=== PATIENT | female | born 1975 | race Caucasian/White ===

== ENCOUNTER 2017-07-09 18:43 | Emergency (ER) | payer BC ==
[~2017-07-09] VITALS: Ht 170.2 cm; Wt 71.2 kg
[~2017-07-09 18:43] MED LIST: AMBIEN10 MG PO; BENTYL10 MG PO; BIAXIN500 MG PO; CELEXA40 MG PO; CHLORDIAZEPOXI1 EACH PO; CYCLOBENZAPRINE5 MG PO; DIAZEPAM10 MG PO; FENTANYL1 EAC1 TOP; FOLIC ACID1 MG PO; GABAPENTIN300 MG PO; KEFLEX500 MG PO; LEVAQUIN500 MG PO; LIBRAX CAPSULE1 EACH PO; LOMOTIL TABLET1 EACH PO; METRONIDAZOLE500 MG PO; MIRTAZAPINE15 MG PO; MOTRIN200 MG PO; PANTOPRAZOLE SO40 MG PO; PENTASA500 MG PO; PHENERGAN SUPP25 MG RC; PROAIR HFA INH8.5 GM INH; PROMETHAZINE HC50 MG PO; PROPRANOLOL HCL80 M1 PO; RESTORIL30 MG PO; TAMIFLU75 MG PO; TEMAZEPAM15 MG PO; TIZANIDINE HCL4 M1 PO; TYLENOL WITH C1 EAC1 PO; TYLENOL WITH C1 EACH PO; XIFAXAN550 MG PO; ZOFRAN ODT4 MG PO; [UNRECOGNIZED DRUG - OTHER] PO
[2017-07-09] MEDS ORDERED: LORAZEPAM 1 MG TAB PO ONE (19:45)
[2017-07-09] MEDS ORDERED: DILAUDID2 MG SC (19:47)
[2017-07-09 20:51] VITALS: BP 91/56
== END 2017-07-09 20:45 | disposition home or self-care (01) ==
LOC: FSED 18:43
DX: S52.124A Nondisplaced fracture of head of right radius, initial encounter for closed fracture (principal); W18.39XA Other fall on same level, initial encounter; C92.10 Chronic myeloid leukemia, BCR/ABL-positive, not having achieved remission
CPT/HCPCS: 99283

== ENCOUNTER 2017-07-11 23:20 | Emergency (ER) | payer BC ==
[~2017-07-11 23:20] MED LIST changes: +DILAUDID2 MG SC
--- OUTSIDE RECORDS SUMMARY | 2017-07-11 23:26 | XMS REPORT | Clinical Summary ---
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 Disp. Refills Start End Date Status Date diazepam (VALIUM) 10 MG Take 10 mg by mouth 4 Active tablet (four) times daily. scopolamine Place 1 patch onto the Active (TRANSDERM-SCOP) 1.5 mg skin every third day. patchIndications: Motion Sickness, Prevention of Motion Sickness citalopram (CELEXA) 40 MG Take 40 mg by mouth Active tablet daily. promethazine (PHENERGAN) Take 25 mg by mouth every Active 25 MG tablet 6 (six) hours as needed for Nausea. zaleplon (SONATA) 10 MG Take 20 mg by mouth Active capsule nightly. zolpidem (AMBIEN CR) 12.5 Take 12.5 mg by mouth Active MG CR tablet every night as needed for Insomnia. fentaNYL (DURAGESIC) 25 Place 1 patch onto the Active mcg/hr patch skin every third day. docusate sodium (COLACE) Take 100 mg by mouth 2 Active 100 MG capsule (two) times daily. mesalamine (PENTASA) 250 Take 250 mg by mouth 4 Active mg CR capsule (four) times daily. TiZANidine (ZANAFLEX) 4 Take 4 mg by mouth 3 Active MG capsule (three) times daily. folic acid (FOLVITE) 1 MG Take 1 mg by mouth daily. Active tablet ondansetron (ZOFRAN-ODT) Take 4 mg by mouth every Active 4 MG disintegrating 8 (eight) hours as needed tablet for Nausea. chlordiazePOXIDE Take 5 mg by mouth 3 Active (LIBRIUM) 5 MG capsule (three) times daily . buprenorphine HCl Place 150 mcg inside Active (BELBUCA) 150 mcg Film cheek 2 (two) times daily. dicyclomine (BENTYL) 10 Take 10 mg by mouth 3 Active MG capsule (three) times daily as needed. rifaximin 550 mg Tab Take 1 tablet (550 mg 180 tablet 3 04/20/20 Active total) by mouth 2 (two) 16 times daily. dicyclomine (BENTYL) 10 Take 1 capsule (10 mg 270 capsule 3 04/19/20 04/19/20 MG capsule total) by mouth 3 (three) 16 17 times daily. Active Problems Problem Noted Date Enteritis 04/14/2016 Shortness of breath 11/10/2014 Nausea & vomiting 10/21/2014 Acute abdominal pain 10/18/2014 Elevated LFTs 09/30/2014 Social History Tobacco Use Types Packs/Day Years Used Date Former Smoker 1 1 Quit: 09/30/2014 Smokeless Tobacco: Former Quit: User 09/30/2014 Comments: patient states quit smoking on admission to the hospital Alcohol Use Drinks/Week oz/Week Comments No Sex Assigned at Date Recorded Not on file Last Filed Vital Signs Not on file Plan of Treatment Not on file Results Not on fileafter 07/10/2016
--- OUTSIDE RECORDS SUMMARY | 2017-07-11 23:26 | XMS REPORT | Continuity of Care Document ---
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 Yes 09/03/16 6:07am If yes, is advance directive on file with [facility]? No 03/09/16 1:40pm If not on file with [facility] will patient provide a copy? Yes 09/03/16 6:07am Problems Medical Problem Onset Date Status Abdominal pain Unknown Failure of outpatient treatment Unknown UTI (urinary tract infection) Unknown Vomiting Unknown Medications Current Home Medications Medication Dose Units Route Directions Days Qty Instructions Start Date Acetaminophen With Codeine (Tylenol With Codeine #4 Tablet) 1 Each Tablet 1 Tab Oral Every 6 Hours Citalopram Hydrobromide (Celexa) 40 Mg Tablet 40 Mg Oral Daily Diazepam 10 Mg Tablet 10 Mg Oral Every 8 Hours Dicyclomine Hcl (Bentyl) 10 Mg Capsule 10 Mg Oral Twice A Day Gabapentin 300 Mg Capsule 300 Mg Oral Three Times A Day 60 Cap Hydromorphone Hcl (Dilaudid) 2 Mg Tab 100 Mg Subcutaneously IV infusion pump, cont Promethazine Hcl 50 Mg Tablet 50 Mg Oral Every 6 Hours Temazepam 15 Mg Capsule 20 Mg Oral Bedtime Tizanidine Hcl 4 Mg Capsule 4 Mg Oral Three Times A Day Zolpidem Tartrate (Ambien) 10 Mg Tablet 12.5 Mg Oral Bedtime Past Home Medications Medication Directions Ordered Status Acetaminophen With Codeine (Tylenol With Codeine #3 Tablet) 1 Each Tablet, 300 Mg Oral Every 6 Hours as needed for Pain 03/15/16 Discontinued Acetaminophen With Codeine (Tylenol With Codeine #3 Tablet) 1 Each Tablet, 300 Mg Oral Every 4 Hours for Pain Discontinued Albuterol Sulfate (Proair Hfa Inhaler*) 8.5 Gm Inh, 2 Inh Inhalation Daily Discontinued Cephalexin Monohydrate (Keflex) 500 Mg Capsule, 500 Mg Oral Four Times Daily Discontinued Chlordiazepoxide/Clidinium Br (Chlordiazepoxide-Clidinium Cap) 1 Each Capsule, 1 Each Oral Daily Discontinued Chlordiazepoxide/Clidinium Br (Librax Capsule) 1 Each Capsule, 20 Mg Oral Bedtime Discontinued Clarithromycin (Biaxin) 500 Mg Tablet, 500 Mg Oral Twice A Day Discontinued Cyclobenzaprine Hcl (Flexeril) 5 Mg Tablet, 10 Mg Oral Discontinued Diphenoxylate Hcl/Atropine (Lomotil Tablet) 1 Each Tablet, 1 Tab Oral Daily Discontinued Fentanyl 1 Each Patch.td72, 50 Mcg Topically Q72 Hrs Discontinued Folic Acid 1 Mg Tablet, 3 Mg Oral Daily Discontinued Ibuprofen (Motrin) 200 Mg Tab, 400 Mg Oral Every 6 Hours Discontinued Levofloxacin (Levaquin) 500 Mg Tablet, 500 Mg Oral Daily 03/15/16 Discontinued Mesalamine (Pentasa) 500 Mg Capcr, 1000 Mg Oral Three Times A Day Discontinued Metronidazole 500 Mg Tablet, 500 Mg Oral Three Times A Day Discontinued Mirtazapine 15 Mg Tab, 15 Mg Oral Bedtime Discontinued Ondansetron (Zofran Odt) 4 Mg Tab.rapdis, 4 Mg Oral Q4-6H Prn 03/15/16 Discontinued Ondansetron (Zofran Odt) 4 Mg Tab.rapdis, 8 Mg Oral Every 6 Hours as needed for Nausea And Vomiting Discontinued Oseltamivir Phosphate (Tamiflu) 75 Mg Cap, 75 Mg Oral Twice A Day Discontinued Pantoprazole Sodium (Protonix) 40 Mg Tablet.dr, 40 Mg Oral Daily Discontinued Pro Plus , 1 Tab Oral Daily Discontinued Promethazine Hcl (Phenergan Supp*) 25 Mg Supp, 25 Mg Rectal Every 8 Hours 11/ 01/16 Discontinued Propranolol Hcl 80 Mg Tablet, 120 Mg Oral Daily Discontinued Rifaximin (Xifaxan) 550 Mg Tablet, 1 Tab Oral Twice A Day Discontinued Temazepam (Restoril) 30 Mg Capsule, 40 Mg Oral Bedtime Discontinued Social History Social History Problem Response Recorded Date/Time Onset Date Status Hx Psychiatric Problems Yes 03/19/2016 1:35am Not Applicable Not Applicable Hx Eating Disorder No 03/19/2016 1:35am Not Applicable Not Applicable Hx Substance Use Disorder No 03/19/2016 1:35am Not Applicable Not Applicable Hx Depression Yes 03/19/2016 1:35am Not Applicable Not Applicable Hx Alcohol Use No 03/19/2016 1:35am Not Applicable Not Applicable Hx Substance Use Treatment No 03/19/2016 1:35am Not Applicable Not Applicable Hx Physical Abuse No 03/19/2016 1:35am Not Applicable Not Applicable Smoking Status Start Date Stop Date Never Smoker Hospital Discharge Instructions No hospital discharge instruction information available. Plan of Care Discharge Date 07/09/17 8:45pm Disposition HOME, SELF-CARE Condition at Discharge Improved Instructions/Education Provided Fractures - Forearm Prescriptions See Medication Section Referrals Stewart Caceres DO Additional Instructions/Education Call your doctor to follow up to re- evaluate and for further management. Functional Status No functional status information available. Allergies, Adverse Reactions, Alerts Allergen Type Severity Reaction Status Last Updated iodine Allergy Intermediate hives Active 09/23/15 clavulanic acid Allergy Intermediate hives Active 09/23/15 Amoxicillin Allergy Intermediate hives Active 09/23/15 Immunizations No immunization information available. Vital Signs Acute Vital Signs Vital Response Date/Time Pulse Pulse Rate (adult) 63 bpm (60 - 90) 07/09/2017 8:51pm Respiratory Rate 16 bpm (12 - 24) 07/09/2017 8:51pm Blood Pressure 91/56 mm Hg 07/09/2017 8:51pm Height 5 ft 7 in 07/09/2017 6:54pm Weight 157 lb 07/09/2017 6:54pm Body Mass Index 24.6 kg/m^2 07/09/2017 6:54pm Results No relevant diagnostic test, laboratory data and/or discharge summary information available. Procedures No procedure information available. Encounters Encounter Location Arrival/Admit Date Discharge/Depart Date Attending Provider Departed Emergency Room [facility] 07/09/17 6:43pm 8:45pm BISI IVAN MD
--- OUTSIDE RECORDS SUMMARY | 2017-07-11 23:26 | XMS REPORT | Clinical Summary ---
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 Disp. Refills Start End Date Status Date mesalamine (PENTASA) 500 Take 1,000 mg by mouth 3 Active MG CR capsule (three) times a day. zolpidem CR (AMBIEN CR) Take 12.5 mg by mouth Active 12.5 MG CR tablet nightly as needed for sleep. citalopram (CeleXA) 40 MG Take 40 mg by mouth Active tablet daily. DIAZEPAM ORAL Take 10 mg by mouth 3 Active (three) times a day. MIRTAZAPINE (REMERON Take by mouth nightly. Active ORAL) promethazine (PHENERGAN) Take 50 mg by mouth every Active 50 MG tablet 6 (six) hours as needed for nausea or vomiting. scopolamine Place 1 patch on the skin Active (TRANSDERM-SCOP) 1.5 mg every third day. (1 mg over 3 days) dicyclomine (BENTYL) 10 Take 10 mg by mouth. Active MG capsule gabapentin (NEURONTIN) Take 300 mg by mouth 3 Active 300 mg capsule (three) times a day. TiZANidine (ZANAFLEX) 4 Take 4 mg by mouth 3 Active MG capsule (three) times a day. promethazine (PHENERGAN) Take 1 tablet (25 mg 10 tablet 0 08/25/19 08/28/19 25 MG tablet total) by mouth every 6 17 17 (six) hours as needed for nausea or vomiting for up to 3 days. fentaNYL (DURAGESIC) 50 Place 1 patch on the skin 02/16/20 Discontin mcg/hr every third day. 17 ued acetaminophen-codeine Take 1 tablet by mouth 02/16/20 Discontin (TYLENOL WITH CODEINE #4) every 4 (four) hours as 17 ued 300-60 mg per tablet needed for moderate pain. Active Problems Problem Noted Date Primary osteoarthritis of left wrist 09/23/2016 Contusion of left wrist 09/23/2016 Left wrist pain 09/23/2016 Left hand pain 09/23/2016 Encounters Date Type Specialty Care Team Description 02/15/2017 Hospital Orthopedic Surgery Asad Ritchie MD Encounter 02/15/2017 Procedure Pass Orthopedic Surgery 02/15/2017 Surgery Orthopedic Surgery Asad Ritchie MD PERMANENT DILUTED INTRATHECAL PUMP IMPLANT 02/07/2017 Pre-Admit Pre-Admission Testing Asad Ritchie MD Preop examination Testing (Primary Dx) Appointment 02/07/2017 Anesthesia Orthopedic Surgery Jessica Ochoa APRN Event 09/23/2016 Office Visit Orthopedic Surgery Maninder Rojas MD Left hand pain (Primary Dx); Left wrist pain; Contusion of left wrist, initial encounter; Primary osteoarthritis of left wrist 08/24/2016 Emergency Emergency Medicine Morgan Lomeli Acute bronchitisCali MD unspecified organism (Primary Dx); Viral illness after 07/10/2016 Social History Tobacco Use Types Packs/Day Years Used Date Current Every Day Smoker Smokeless Tobacco: Never Used Alcohol Use Drinks/Week oz/Week Comments No Sex Assigned at Date Recorded Not on file Last Filed Vital Signs Vital Sign Reading Time Taken Blood Pressure 108/63 02/15/2017 6:04 PM CDT Pulse 76 02/15/2017 6:04 PM CDT Temperature 36.6 C (97.8 F) 02/15/2017 6:04 PM CDT Respiratory Rate 16 02/15/2017 6:04 PM CDT Oxygen Saturation 94% 02/15/2017 6:04 PM CDT Inhaled Oxygen - - Concentration Weight 68.9 kg (152 lb) 02/15/2017 11:09 AM CDT Height 167.6 cm (5' 6") 02/15/2017 11:09 AM CDT Body Mass Index 24.53 02/15/2017 11:09 AM CDT Plan of Treatment Health Maintenance Due Date Last Done Comments PAP SMEAR 12/16/1996 INFLUENZA VACCINE 12/13/2016 Implants Implanted Type Area Oil Well Pumper Device Expiration Model / Identifier Date Serial / Lot Pump Infsn Synchromed Ii W/ Fltr Neurosurgi Right: MEDTRONIC 2018 [id number] / Sut Loop Prgrmbl Rsvr 20ml - bert Abdomen, NEUROMODULATION / [id number] Implants Lower [id number] Implanted: Qty: 1 on 02/15/2017 by Quadrant Asad Ritchie MD Passer Cath W/ Rmvbl Hndl And Ppe Neurosurgi Right: MEDTR[employer]IC [facility] - 12/12/2021 [id number] / Obtrtr 38cm Strl - [id number] bert Abdomen, NEUROLOGICAL / Implanted: Qty: 1 on 02/15/2017 by Implants Lower [id number] Asad Ritchie MD Quadrant Closure Wnd Tiss Rpr Sys - Surgical Right: ANULEX 08/29/2020 XC [id number] Implants; Abdomen, TECHNOLOGIES / Implanted: Qty: 1 on 02/15/2017 by Expanders; Lower INC / Asad Ritchie MD Extenders; Quadrant [id number] Surgical Wires Procedures Procedure Name Priority Date/Time Associated Diagnosis Comments RI AN ELECTIVE Routine 02/15/2017 ENDOTRACHEAL AIRWAY 1:30 PM CDT Procedure Note - Fermín Sanchez CRNA - 02/15/2017 1:29 PM CDT Airway Date/Time: 02/15/2017 1:13 PM Performed by: FERMÍN SANCHEZ Authorized by: BELLA QUINTERO Location: OR Urgency: Elective Difficult Airway: No Anesthesio logist: BELLA QUINTERO Resident/C RNA: FERMÍN SANCHEZ Performed by: resident/C RNA Preoxygena vinny with 100% O2: Yes Mask Ventilatio n: Easy mask Final Airway Type: Endotrache al airway Final Endotrache al Airway: ETT Cuffed: Yes Technique Used: Direct laryngosco py Devices/Me thods Used in Placement: Intubatin g stylet Insertion Site: Oral Blade Type: Muñiz Laryngosco pe Blade/Vide olaryngosc ope Blade Size: 2 ETT Size (mm): 7.0 Cuff at minimum occlusion pressure: Yes Measured from: Teeth ETT to Teeth (cm): 21 Placement Verified by: CO2 detection, direct visualizat ion and equal breath sounds Laryngosco pic view: Grade I - full view of glottis Rapid Sequence Induction (RSI): No Modified RSI: No Number of Attempts at Approach: 1 PERMANENT DILUTED 02/15/2017 Low back pain INTRATHECAL PUMP IMPLANT 11:45 AM CDT Case Notes LARGE C-ARM, MEDTRONIC DEVICE Special Needs LARGE C-ARM, [employer]TR[employer] DEVICE after 07/10/2016 Results * Estimated GFR (02/07/2017 4:58 PM) Only the most recent of 2 results within the time period is included. Component Value Ref Range GFR Non Af Amer >90 mL/min/1.73 m2 GFR Af Amer >90 mL/min/1.73 m2 Comment: Chronic kidney disease: <60 mL/min/1.73m2 Kidney failure: <15 mL/min/1.73m2 The estimated GFR is calculated from the IDMS-traceable Modification of Diet in Renal Disease Equation. The accuracy of the calculation is poor when the creatinine is normal. Calculated values >90 mL/min/1.73m2 are not reported. This equation has not been validated in children (<18 years), women, the elderly (>70 years), or ethnic groups other than Caucasians and Americans. Specimen Performing Laboratory Plasma specimen [facility] DEPARTMENT OF PATHOLOGY AND GENOMIC MEDICINE [address] [place] [id number] * CBC hemogram (02/07/2017 4:58 PM) Component Value Ref Range WBC 5.98 4.50 - 11.00 k/uL RBC 2.79 (L) 4.20 - 5.50 m/uL HGB 9.8 (L) 12.0 - 16.0 g/dL HCT 31.1 (L) 37.0 - 47.0 % MCV 111.5 (H) 82.0 - 100.0 fL MCH 35.1 (H) 27.0 - 34.0 pg MCHC 31.5 31.0 - 37.0 g/dL RDW - SD 47.9 37.0 - 55.0 fL MPV 10.9 8.8 - 13.2 fL Platelet count 246 150 - 400 k/uL Nucleated RBC 0.50 /100 WBC Specimen Performing Laboratory Blood [facility] DEPARTMENT OF PATHOLOGY AND GENOMIC MEDICINE [address] [place] [id number] * Basic metabolic panel (02/07/2017 4:58 PM) Component Value Ref Range Sodium 142 135 - 148 mEq/L Potassium 3.7 3.5 - 5.0 mEq/L Chloride 101 98 - 112 mEq/L CO2 28 24 - 31 mEq/L Anion gap 13 7 - 15 mEq/L Comment: Starting from August , anion gap calculation no longer incorporates potassium. Please note the change. BUN 10 6 - 20 mg/dL Creatinine 0.7 0.5 - 0.9 mg/dL Glucose 98 65 - 99 mg/dL Calcium 8.9 8.3 - 10.2 mg/dL Specimen Performing Laboratory Plasma specimen [facility] DEPARTMENT OF PATHOLOGY AND GENOMIC MEDICINE [address] [place] [id number] * XR Hand 3+ Vw Left (09/23/2016 10:31 AM) Specimen Performing Laboratory [address] [address] Narrative Mild diffuse degenerative changes * XR Chest 1 Vw Portable (08/24/2016 5:56 AM) Specimen Performing Laboratory [address] [address] Narrative EXAMINATION:XR CHEST 1 VW PORTABLE CLINICAL HISTORY:Cough COMPARISON:August 10, 2015 IMPRESSION: 1.The heart and pulmonary vasculature are within normal limits. 2.No infiltrate or effusion is demonstrated. 3.There is no acute osseous pathology. [facility]-[id number] Procedure Note Interface, Radiology Results Incoming - 08/24/2016 6:04 AM CDT EXAMINATION: XR CHEST 1 VW PORTABLE CLINICAL HISTORY: Cough COMPARISON: August 10, 2015 IMPRESSION: 1.The heart and pulmonary vasculature are within normal limits. 2.No infiltrate or effusion is demonstrated. 3.There is no acute osseous pathology. [facility]-[id number] * CBC with platelet and differential (08/24/2016 5:45 AM) Component Value Ref Range WBC 4.89 4.50 - 11.00 k/uL RBC 3.83 (L) 4.20 - 5.50 m/uL HGB 12.0 12.0 - 16.0 g/dL HCT 35.4 (L) 37.0 - 47.0 % MCV 92.4 82.0 - 100.0 fL MCH 31.3 27.0 - 34.0 pg MCHC 33.9 31.0 - 37.0 g/dL RDW - SD 47.5 37.0 - 55.0 fL MPV 11.0 8.8 - 13.2 fL Platelet count 306 150 - 400 k/uL Nucleated RBC 0.00 /100 WBC Neutrophils 68.1 39.0 - 69.0 % Lymphocytes 21.5 (L) 25.0 - 45.0 % Monocytes 10.0 0.0 - 10.0 % Eosinophils 0.0 0.0 - 5.0 % Basophils 0.2 0.0 - 1.0 % Immature granulocytes 0.2Comment: "Immature granulocytes" 0.0 - 1.0 % (promyelocytes, myelocytes, metamyelocytes) Specimen Performing Laboratory Blood [facility] DEPARTMENT OF PATHOLOGY AND GENOMIC MEDICINE [address] [place] [address] * Influenza antigen (08/24/2016 5:45 AM) Component Value Ref Range Influenza antigen Negative for Influenza A/B antigen. Comment: Specimen Information Specimen Source: Nares Specimen Site: Right Specimen Performing Laboratory Nares - Right [facility] DEPARTMENT OF PATHOLOGY AND [facility] [address] [place] [address] * hCG qualitative, serum screen (08/24/2016 5:45 AM) Component Value Ref Range hCG qualitative, serum Negative Specimen Performing Laboratory Blood [facility] DEPARTMENT OF PATHOLOGY AND [facility] [address] [place] [address] * Comprehensive metabolic panel (08/24/2016 5:45 AM) Component Value Ref Range Sodium 140 135 - 148 mEq/L Potassium 3.9 3.5 - 5.0 mEq/L Chloride 100 98 - 112 mEq/L CO2 26 24 - 31 mEq/L Anion gap 14 7 - 15 mEq/L Comment: Starting from August , anion gap calculation no longer incorporates potassium. Please note the change. BUN 10 6 - 20 mg/dL Creatinine 0.6 0.5 - 0.9 mg/dL Glucose 120 (H) 65 - 99 mg/dL Calcium 9.8 8.3 - 10.2 mg/dL Protein 7.2 6.3 - 8.3 g/dL Comment: 4.6-7.0 g/dL 1 week 4.4-7.6 g/dL 7 months-1year 5.1-7.3 g/dL 1-2 years 5.6-7.5 g/dL >3 years 6.0-8.0 g/dL 18-150 6.3-8.3 g/dL Albumin 4.7 3.5 - 5.0 g/dL A/G ratio 1.9 0.7 - 3.8 Alkaline phosphatase 97 35 - 104 U/L AST 18 10 - 35 U/L ALT 50 5 - 50 U/L Total bilirubin <0.2 0.0 - 1.2 mg/dL Specimen Performing Laboratory Plasma specimen [facility] DEPARTMENT OF PATHOLOGY AND GENOMIC MEDICINE [address] [place] [address] after 07/10/2016 Insurance Payer Benefit Subscriber ID Type Phone Address Plan / Group BCBS EXCHANGE BLUE xxxxxxxxxxxx Exchange ADVANTAGE HMO EXCH
== END 2017-07-11 23:58 | disposition short-term general hospital (02) ==
LOC: FSED 23:20
DX: Z47.89 Encounter for other orthopedic aftercare (principal)

== ENCOUNTER 2018-09-18 16:58 | Emergency (ER) | payer BC ==
[~2018-09-18] VITALS: Ht 170.2 cm; Wt 71.2 kg
--- OUTSIDE RECORDS SUMMARY | 2018-09-18 17:02 | XMS REPORT | Clinical Summary ---
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 Active zolpidem CR (AMBIEN CR) Take 12.5 mg 0 12.5 MG CR tablet by mouth nightly as needed for sleep. Active citalopram (CeleXA) 40 MG Take 40 mg by 0 tablet mouth daily. Active DIAZEPAM ORAL Take 10 mg by 0 mouth 3 (three) times a day. Active MIRTAZAPINE (REMERON Take by mouth 0 ORAL) nightly. Active promethazine (PHENERGAN) Take 50 mg by 0 50 MG tablet mouth every 6 (six) hours as needed for nausea or vomiting. Active scopolamine Place 1 patch 0 (TRANSDERM-SCOP) 1.5 mg on the skin (1 mg over 3 days) every third day. Active dicyclomine (BENTYL) 10 Take 10 mg by 0 MG capsule mouth. Active gabapentin (NEURONTIN) Take 300 mg 0 300 mg capsule by mouth 3 (three) times a day. Active TiZANidine (ZANAFLEX) 4 Take 4 mg by 0 MG capsule mouth 3 (three) times a day. Active Problems Problem Noted Date Primary osteoarthritis of left wrist 09/23/2016 Contusion of left wrist 09/23/2016 Left wrist pain 09/23/2016 Left hand pain 09/23/2016 Social History Date Tobacco Use Types Packs/Day Years Used Current Every Day Smoker Smokeless Tobacco: Never Used Alcohol Use Drinks/Week oz/Week Comments No Sex Assigned at Date Recorded Not on file Industry Job Start Date Occupation Not on file Not on file Not on file Travel End Travel History Travel Start No recent travel history available. Last Filed Vital Signs Not on file Plan of Treatment Health Maintenance Due Date Last Done Comments CERVICAL CANCER SCREENING 12/16/1996 INFLUENZA VACCINE 12/13/2018 Implants Device Identifier Shelf Expiration Date Model / Serial / Lot Implanted Type Area Manufactur er 07/12/2018 [id number] / / [id number] Pump Infsn Synchromed Ii W/ Fltr Neurosurgi Right: Abdomen, [employer] Sut Loop Prgrmbl Rsvr 20ml - bert Lower Quadrant NEUROMODUL [id number] Implants ATION Implanted: Qty: 1 on 02/15/2017 by Asad Ritchie MD 12/12/2021 [id number] / / [id number] Passer Cath W/ Rmvbl Hndl And Ppe Neurosurgi Right: Abdomen, [employer] Obtrtr 38cm Strl - [id number] bert Lower Quadrant [place] - Implanted: Qty: 1 on 02/15/2017 by Implants NEUROLOGIC Asad Ritchie MD [place] 08/29/2020 XC [id number] 01 / / [id number] Closure Wnd Tiss Rpr Sys - Surgical Right: Abdomen, ANULEX [id number] Implants; Lower Quadrant TECHNOLOGI Implanted: Qty: 1 on 02/15/2017 by Expanders; ES INC Asad Ritchie MD Extenders; Surgical Wires Results Not on fileafter 09/17/2017 Insurance Payer Benefit Subscriber ID Type Phone Address Plan / Group BCBS EXCHANGE BLUE xxxxxxxxxxxx Exchange ADVANTAGE HMO EXCH Advance Directives Patient has advance care planning documents on file. For more information, fifi edge contact: [facility] [address] [place] [phone]
--- OUTSIDE RECORDS SUMMARY | 2018-09-18 17:02 | XMS REPORT | Clinical Summary ---
Author Author ANDRY [employer] [facility] Address Unknown Phone Unavailable Care Team Providers Care Auto Parker Name Role Phone Blair Hunt Unavailable Sharpless PCP Allergies Comments Active Allergy Reactions Severity Noted Date Severe itching, rash Amoxicillin-Pot 09/30/2014 Clavulanate Pt states her arm get red Morphine Itching 09/30/2014 Skin peels off Adhesive Tape 09/30/2014 Medications End Date Status Medication Sig Dispensed Refills Start Date Active diazepam (VALIUM) 10 MG Take 10 mg by 0 tablet mouth 4 (four) times daily. Active scopolamine Place 1 patch 0 (TRANSDERM-SCOP) 1.5 mg onto the skin patchIndications: Motion every third Sickness, Prevention of day. Motion Sickness Active citalopram (CELEXA) 40 MG Take 40 mg by 0 tablet mouth daily. Active promethazine (PHENERGAN) Take 25 mg by 0 25 MG tablet mouth every 6 (six) hours as needed for Nausea. Active zaleplon (SONATA) 10 MG Take 20 mg by 0 capsule mouth nightly. Active zolpidem (AMBIEN CR) 12.5 Take 12.5 mg 0 MG CR tablet by mouth every night as needed for Insomnia. Active fentaNYL (DURAGESIC) 25 Place 1 patch 0 mcg/hr patch onto the skin every third day. Active docusate sodium (COLACE) Take 100 mg 0 100 MG capsule by mouth 2 (two) times daily. Active mesalamine (PENTASA) 250 Take 250 mg 0 mg CR capsule by mouth 4 (four) times daily. Active TiZANidine (ZANAFLEX) 4 Take 4 mg by 0 MG capsule mouth 3 (three) times daily. Active folic acid (FOLVITE) 1 MG Take 1 mg by 0 tablet mouth daily. Active ondansetron (ZOFRAN-ODT) Take 4 mg by 0 4 MG disintegrating mouth every 8 tablet (eight) hours as needed for Nausea. Active chlordiazePOXIDE Take 5 mg by 0 (LIBRIUM) 5 MG capsule mouth 3 (three) times daily . Active buprenorphine HCl Place 150 mcg 0 (BELBUCA) 150 mcg Film inside cheek 2 (two) times daily. Active dicyclomine (BENTYL) 10 Take 10 mg by 0 MG capsule mouth 3 (three) times daily as needed. Active rifaximin 550 mg Tab Take 1 tablet 180 tablet 3 (550 mg 6 total) by mouth 2 (two) times daily. Active Problems Problem Noted Date Enteritis 04/14/2016 Shortness of breath 11/10/2014 Nausea & vomiting 10/21/2014 Acute abdominal pain 10/18/2014 Elevated LFTs 09/30/2014 Social History Date Tobacco Use Types Packs/Day Years Used Quit: 09/30/2014 Former Smoker 1 1 Smokeless Tobacco: Former Quit: 09/30/2014 User Comments: patient states quit smoking on admission [...] Not on file Results Not on fileafter 09/17/2017 Insurance Payer Benefit Subscriber ID Type Phone Address Plan / Group BLUE CROSS/BLUE SHIELD BCBS ADV xxxxxxxxxxxx [phone] [address] [place] [address] EXCHANGE Advance Directives For more information, please contact: [facility] [address] [place] [address] Date Inactivated Comments Code Status Date Activated 04/20/2016 3:01 PM Full Code 04/14/2016 11:54 PM This code status was determined by: Patient 11/11/2014 7:54 PM Full Code 11/10/2014 11:56 PM This code status was determined by: Patient 10/21/2014 1:54 PM Full Code 10/18/2014 9:13 PM This code status was determined by: Patient 10/05/2014 1:27 PM Full Code 10/03/2014 5:44 PM This code status was determined by: Patient 10/03/2014 5:44 PM Full Code 10/02/2014 1:35 PM This code status was determined by: Patient
--- OUTSIDE RECORDS SUMMARY | 2018-09-18 17:12 | XMS REPORT | CCD ---
Author Author Auto Generated Organization [facility] Address Unknown Phone Unavailable Care Team Providers Care Professor Of Sociology Name Role Phone Mauro Abbott CP Allergies, Adverse Reactions, Alerts Substance Reaction Status aspirin Active Augmentin Active Food MSG Active Imitrex Active iodine Active Iron (Ferrous Sulfate) Active Latex Active Paper Tape Active shellfish Active Problem List Condition Effective Dates Status Abdominal pain Active Anxiety Active Cancer of cervix Active Depression Active Female genital organ symptoms1 Active Gastric bypass operation Active Laparoscopic procedure Active Lumbar puncture headache Active Lysis of adhesions Active Migraine Active Sinusitis Active Ulcer Active 1CANCELLED Medications Medication Instructions Start Date End Date Status diphenhydrAMINE 25 mg, Route: IVP, ONCE, Dosing 02/16/2012 02/16/2012 Completed Weight 61.818, kg, Priority: STAT, Start date: 02/16/12 16:13:00, Stop date: 02/16/12 16:13:00 LORAzepam 1 mg, Route: PO, ONCE, Dosing 02/16/2012 02/16/2012 Completed Weight 61.818, kg, Priority: STAT, Start date: 02/16/12 16:13:00, Stop date: 02/16/12 16:13:00 epinephrine topical 0.3 mL, Route: IM, ONCE, Start 02/16/2012 02/16/2012 Discontinued 1:1000 solution date: 02/16/12 16:13:00, Stop date: 02/16/12 16:13:00 famotidine 20 mg, Route: IVP, ONCE, Dosing 02/16/2012 02/16/2012 Completed Weight 61.818, kg, Priority: STAT, Start date: 02/16/12 16:13:00, Stop date: 02/16/12 16:13:00 NS 500 mL 500 mL, Rate: 1,000 ml/hr, Infuse 02/16/2012 02/16/2012 Completed over: 0.5 hr, Route: IV, Dosing Weight 61.818 kg, Total Volume: 500, Start date: 02/16/12 16:12:00, Duration: 1 doses or times, Stop date: 02/16/12 16:41:00, Bolus Dose Bolus Dose epinephrine 1 mg/mL 0.3 mg, Route: IM, ONCE, Dosing 02/16/2012 02/16/2012 Completed injectable solution Weight 61.818, kg, Priority: STAT, Start date: 02/16/12 16:21:00, Stop date: 02/16/12 16:21:00 EpiPen Auto-Injector 0.3 mg, IM, ONCE, 1 kit, 02/16/2012 02/16/2012 Ordered 0.3 mg injectable Substitution Allowed, SOLN kit influenza virus 0.5 ml, Route: IM, Drug Form: INJ, 03/31/2011 03/31/2011 Completed vaccine, inactivated Start date: 03/31/11 9:00:00, Stop date: 03/31/11 9:00:00 Immunizations Vaccine Date Status Hx pneumococcal vaccine 12/29/2010 Auth (Verified) influenza virus vaccine, inactivated 03/31/2011 Not Done Vital Signs Most recent to oldest [Reference Range]: 1 Height 170.18 cm (02/16/2012 15:44:00) Weight 61.818 kg (02/16/2012 15:44:00)
--- OUTSIDE RECORDS SUMMARY | 2018-09-18 17:12 | XMS REPORT | CCD ---
Author Author Auto Generated Organization [facility] Address Unknown Phone Unavailable Care Team Providers Care Child Center Assistant Name Role Phone John Domínguez CP Allergies, Adverse Reactions, Alerts Substance Reaction Status Allergy Unverified UNKNOWN MIGRAINE PAIN MED Canceled aspirin Active Augmentin Active Food MSG Active Imitrex Active iodine Active Iron (Ferrous Sulfate) Active NKDA Canceled Paper Tape Active shellfish Active Problem List Condition Effective Dates Status Abdominal pain Active Anxiety Active Cancer of cervix Active Depression Active Female genital organ symptoms1 Active Gastric bypass operation Active Laparoscopic procedure Active Lumbar puncture headache Active Lysis of adhesions Active Migraine Active Sinusitis Active Ulcer Active 1CANCELLED Medications Medication Instructions Start Date End Date Status Fioricet 1 tab, Route: PO, Drug Form: TAB, 10/09/2011 10/10/2011 Discontinued Q4H, PRN Headache, Start date: 10/09/11 16:29:00, Duration: 30 day, Stop date: 11/08/11 16:28:00 Fioricet with 1 cap, Route: PO, Drug Form: CAP, 10/09/2011 10/09/2011 Discontinued Codeine Q4H, PRN Headache, Start date: 10/09/11 16:28:00, Duration: 30 day, Stop date: 11/08/11 16:27:00 trazodone 50 mg oral 50 mg, 1 tab, PO, PRN, as needed 10/09/2011 Ordered tablet for insomnia if ambien does not work, Substitution Allowed, TAB Ambien CR 12.5 mg 25 mg, 2 tab, PO, Bedtime, PRN, for 10/09/2011 Ordered oral tablet, sleep, Substitution Allowed, ERTAB extended release Saline Flush 0.9% 5 ml, Route: IVP, Drug Form: INJ, 10/09/2011 10/10/2011 Discontinued PRN, PRN Line Flush, Start date: 10/09/11 4:44:00, Duration: 30 day, Stop date: 11/08/11 4:43:00 Saline Flush 0.9% 5 ml, Route: IVP, Drug Form: INJ, 10/09/2011 10/10/2011 Discontinued Q12H, Start date: 10/09/11 9:00:00, Duration: 30 day, Stop date: 11/07/11 21:00:00 potassium chloride 40 mEq, Route: PO, Drug form: 10/09/2011 10/09/2011 Completed ERTAB, ONCE, Priority: STAT, Start date: 10/09/11 3:33:00, Stop date: 10/09/11 3:33:00 Fioricet with 2 cap, PO, Q4H, PRN, 20 cap, for 10/10/2011 Ordered Codeine oral capsule headache, Substitution Allowed, Maintenance, CAP Fioricet with Fioricet with Codeine, (pt's own 10/09/2011 10/10/2011 Discontinued Codeine med), Drug form: MISC, Route: PO, Q4H, PRN Pain, 10/09/11 16:33:00, Duration: 30 day, Stop date: 11/08/11 16:32:00 Motrin 600 mg, 3 tab, Route: PO, Drug 10/09/2011 10/10/2011 Discontinued form: TAB, QID, PRN Pain, Start date: 10/09/11 15:27:00, Duration: 30 day, Stop date: 11/08/11 15:26:00 Tylenol 650 mg, 2 tab, Route: PO, Drug 10/09/2011 10/10/2011 Discontinued form: TAB, Q6H, PRN Pain, Start date: 10/09/11 12:08:00, Duration: 30 day, Stop date: 11/08/11 12:07:00 nitroglycerin 0.4 mg 0.4 mg, 1 tab, Route: SL, Drug 10/09/2011 10/10/2011 Discontinued sublingual tablet form: TAB, Q5Min, PRN Chest Pain, Start date: 10/09/11 4:49:00, Duration: 30 day, Stop date: 11/08/11 4:48:00 atropine 0.5 mg, 5 mL, Route: IVP, Drug 10/09/2011 10/10/2011 Discontinued form: INJ, PRN, PRN Bradycardia, Start date: 10/09/11 4:48:00, Duration: 30 day, Stop date: 11/08/11 4:47:00 trazodone 50 mg oral 50 mg, 1 tab, Route: PO, Drug form: 10/09/2011 10/10/2011 Discontinued tablet TAB, Bedtime, PRN Anxiety, Start date: 10/09/11 15:26:00, Duration: 30 day, Stop date: 11/08/11 15:25:00 Ambien CR 25 mg, Route: PO, Drug form: ERTAB, 10/09/2011 10/09/2011 Deleted Bedtime, PRN as needed for sleep, Start date: 10/09/11 15:26:00, Duration: 30 day, Stop date: 11/08/11 15:25:00 diazepam 10 mg, 1 tab, Route: PO, Drug form: 10/09/2011 10/10/2011 Discontinued TAB, QID, Start date: 10/09/11 17:00:00, Duration: 30 day, Stop date: 11/08/11 13:00:00 Pristiq 50 mg oral 50 mg, 1 tab, Route: PO, Drug form: 10/10/2011 10/09/2011 Discontinued tablet, extended ERTAB, Daily, Start date: 10/10/11 release 9:00:00, Duration: 30 day, Stop date: 11/08/11 9:00:00 Benadryl 50 mg, Route: IVP, ONCE, benadryl 10/09/2011 10/09/2011 Deleted 50mg ivp x1 dose now, Start date: 10/09/11 5:50:00, Stop date: 10/09/11 5:50:00 Pristiq 50mg Pristiq 50mg, (pt's own med), Drug 10/10/2011 10/10/2011 Discontinued form: MISC, Route: PO, Daily, 10/10/11 9:00:00, Duration: 30 day, Stop date: 11/08/11 9:00:00 Benadryl 25 mg, 0.5 mL, Route: IV, Drug 10/09/2011 10/10/2011 Discontinued form: INJ, QID, PRN as needed for allergy symptoms, Start date: 10/09/11 19:07:00, Duration: 30 day, Stop date: 11/08/11 19:06:00 Benadryl 50 mg, 1 mL, Route: IV, Drug form: 10/09/2011 10/10/2011 Discontinued INJ, QID, PRN as needed for allergy symptoms, Start date: 10/09/11 19:07:00, Duration: 30 day, Stop date: 11/08/11 19:06:00 Benadryl 50 mg, 1 mL, Route: IVP, Drug form: 10/09/2011 10/09/2011 Completed INJ, ONCE, PRN Itching, Start date: 10/09/11 5:46:00 Ambien 20 mg, 2 tab, Route: PO, Drug form: 10/09/2011 10/10/2011 Discontinued TAB, Bedtime, PRN Sleep, Start date: 10/09/11 15:54:00, Duration: 30 day, Stop date: 11/08/11 15:53:00 influenza virus 0.5 ml, Route: IM, Drug Form: INJ, 03/31/2011 03/31/2011 Completed vaccine, inactivated Start date: 03/31/11 9:00:00, Stop date: 03/31/11 9:00:00 1/2NS 1,000 mL 1,000 mL, Rate: 125 ml/hr, Infuse 10/09/2011 10/10/2011 Discontinued over: 8 hr, Route: IV, Dosing Weight 62.727 kg, Total Volume: 1,000, Start date: 10/09/11 2:53:00, Duration: 30 day, Stop date: 11/08/11 2:52:00 acetaminophen-hydroc 1 tab, Route: PO, ONCE, STAT, Start 10/09/2011 10/09/2011 Completed odone 325 mg-5 mg date: 10/09/11 3:40:00, Stop date: oral tablet 10/09/11 3:40:00 Immunizations Vaccine Date Status influenza virus vaccine, inactivated 03/31/2011 Not Done Vital Signs Most recent to oldest [Reference Range]: 1 2 3 Height 170.18 cm (10/08/2011 22:25:00) Temperature Oral [96.4-99.1 DegF] 98.3 DegF (10/10/2011 12:00:00) 97.6 DegF (10/10/2011 04:00:00) 98.4 DegF (10/10/2011 00:00:00) Systolic Blood Pressure [90-140 mmHg] 95 mmHg (10/10/2011 12:00:00) 109 mmHg (10/10/2011 04:00:00) 104 mmHg (10/10/2011 00:00:00) Diastolic Blood Pressure [60-90 mmHg] 60 mmHg (10/10/2011 12:00:00) 71 mmHg (10/10/2011 04:00:00) 62 mmHg (10/10/2011 00:00:00) Respiratory Rate [14-20 BRMIN] 16 BRMIN (10/10/2011 12:00:00) 16 BRMIN (10/10/2011 04:00:00) 16 BRMIN (10/10/2011 00:00:00) Peripheral Pulse Rate [60-100 bpm] 71 bpm (10/10/2011 12:00:00) 52 bpm *LOW* (10/10/2011 04:00:00) 47 bpm *LOW* (10/10/2011 00:00:00) Weight 62.727 kg (10/08/2011 22:25:00) Results BEDSIDE GLUCOSE TESTING Most recent to [Reference Range]: 1 2 3 Gluc POC Lifscn [70-99 mg/dL] 95 mg/dL 1 (10/09/2011 21:12:00) Comment1 Notify RN/MD *NA* (10/09/2011 21:12:00) 1Interpretive Data: Upper Reportable Limit: 200 mg/dL. BLOOD BANK RESULTS Most recent to [Reference Range]: 1 2 3 ABO/Rh O POS *Unknown* (10/09/2011 10:34:00) Antibody Scrn Negative (10/09/2011 10:34:00) RBC product Product available 2 (10/09/2011 09:01:00) 2Result Comment: 10/09/2011 12:02 ASBHAVSAcalled to diana 10/09/2011 12:02 CHEMISTRY Most recent to [Reference Range]: 1 2 3 Sodium Lvl [135-145 mEq/L] 143 mEq/L (10/10/2011 04:45:00) 147 mEq/L *HI* (10/09/2011 01:35:00) Potassium Lvl [3.5-5.1 mEq/L] 4.0 mEq/L (10/10/2011 04:45:00) 3.4 mEq/L *LOW* (10/09/2011 01:35:00) Chloride Lvl [95-109 mEq/L] 108 mEq/L (10/10/2011 04:45:00) 111 mEq/L *HI* (10/09/2011 01:35:00) CO2 [24-32 mEq/L] 23 mEq/L *LOW* (10/10/2011 04:45:00) 28 mEq/L (10/09/2011 01:35:00) AGAP [10.0-20.0 mEq/L] 16.0 mEq/L (10/10/2011 04:45:00) 11.4 mEq/L (10/09/2011 01:35:00) Creatinine Lvl [0.5-1.4 mg/dL] 0.9 mg/dL (10/10/2011 04:45:00) 1.0 mg/dL (10/09/2011 01:35:00) BUN [7-22 mg/dL] 10 mg/dL (10/10/2011 04:45:00) 9 mg/dL (10/09/2011 01:35:00) Glucose Lvl [70-99 mg/dL] 70 mg/dL 3 (10/10/2011 04:45:00) 90 mg/dL 4 (10/09/2011 01:35:00) Calcium Lvl [8.5-10.5 mg/dL] 8.8 mg/dL (10/10/2011 04:45:00) 8.5 mg/dL (10/09/2011 01:35:00) Iron [30-160 ug/dl] 57 ug/dl (10/09/2011 10:34:00) Ferritin Lvl [5-204 ng/mL] 6 ng/mL (10/09/2011 10:34:00) % Satur Fe [12-57 %] 12 % (10/09/2011 10:34:00) UIBC [110-370 ug/dl] 414 ug/dl *HI* (10/09/2011 10:34:00) Vitamin B12 Lvl [211-911 pg/mL] 131 pg/mL *LOW* (10/09/2011 10:34:00) Folate Lvl [>=3.0 ng/mL] 15.6 ng/mL (10/09/2011 10:34:00) TIBC [228-428 ug/dl] 471 ug/dl *HI* (10/09/2011 10:34:00) 3Interpretive Data: Adult reference range values reflect the clinical guidelinesof the [place] [employer]. 4Interpretive Data: Adult reference range values reflect the clinical guidelinesof the [place] [employer]. HEMATOLOGY Most recent to oldest [Reference Range]: 1 2 3 WBC [3.7-10.4 K/CMM] 3.8 K/CMM (10/10/2011 04:45:00) 4.1 K/CMM (10/09/2011 01:35:00) RBC [4.20-5.40 M/CMM] 3.89 M/CMM *LOW* (10/10/2011 04:45:00) 3.11 M/CMM *LOW* (10/09/2011 01:35:00) Hgb [12.0-16.0 g/dL] 12.0 g/dL (10/10/2011 04:45:00) 8.5 g/dL *LOW* (10/09/2011 07:34:00) 9.4 g/dL *LOW* (10/09/2011 01:35:00) Hct [36.0-48.0 %] 35.6 % *LOW* (10/10/2011 04:45:00) 26.1 % *LOW* (10/09/2011 07:34:00) 28.1 % *LOW* (10/09/2011 01:35:00) MCV [81.0-99.0 fL] 91.6 fL (10/10/2011 04:45:00) 90.4 fL (10/09/2011 01:35:00) MCH [27.0-31.0 pg] 30.9 pg (10/10/2011 04:45:00) 30.1 pg (10/09/2011 01:35:00) MCHC [32.0-36.0 g/dL] 33.7 g/dL (10/10/2011 04:45:00) 33.3 g/dL (10/09/2011 01:35:00) RDW [11.5-14.5 %] 15.7 % *HI* (10/10/2011 04:45:00) 15.1 % *HI* (10/09/2011 01:35:00) Platelet [133-450 K/CMM] 187 K/CMM (10/10/2011 04:45:00) 211 K/CMM (10/09/2011 01:35:00) MPV [7.4-10.4 fL] 10.1 fL (10/10/2011 04:45:00) 9.5 fL (10/09/2011 01:35:00) Segs [45.0-75.0 %] 34.7 % *LOW* (10/10/2011 04:45:00) 41.6 % *LOW* (10/09/2011 01:35:00) Lymphocytes [20.0-40.0 %] 55.8 % *HI* (10/10/2011 04:45:00) 45.7 % *HI* (10/09/2011 01:35:00) Monocytes [2.0-12.0 %] 5.5 % (10/10/2011 04:45:00) 10.1 % (10/09/2011 01:35:00) Eosinophils [0.0-4.0 %] 3.3 % (10/10/2011 04:45:00) 2.1 % (10/09/2011 01:35:00) Basophils [0.0-1.0 %] 0.7 % (10/10/2011 04:45:00) 0.5 % (10/09/2011 01:35:00) Segs-Bands # [1.5-8.1 K/CMM] 1.3 K/CMM *LOW* (10/10/2011 04:45:00) 1.7 K/CMM (10/09/2011 01:35:00) Lymphocytes # [1.0-5.5 K/CMM] 2.1 K/CMM (10/10/2011 04:45:00) 1.9 K/CMM (10/09/2011 01:35:00) Monocytes # [0.0-0.8 K/CMM] 0.2 K/CMM (10/10/2011 04:45:00) 0.4 K/CMM (10/09/2011 01:35:00) Eosinophils # [0.0-0.5 K/CMM] 0.1 K/CMM (10/10/2011 04:45:00) 0.1 K/CMM (10/09/2011 01:35:00) Basophils # [0.0-0.2 K/CMM] 0.0 K/CMM (10/10/2011 04:45:00) 0.0 K/CMM (10/09/2011 01:35:00)
--- OUTSIDE RECORDS SUMMARY | 2018-09-18 17:12 | XMS REPORT | CCD ---
Author Author Auto Generated Organization [facility] Address Unknown Phone Unavailable Care Team Providers Care Room Service Bellhop Name Role Phone Mauro Abbott CP Allergies, [...] Medication Instructions Start Date End Date Status Sodium Chloride 0.9% 1,000 mL, Rate: 1,000 ml/hr, Infuse 01/24/2012 01/24/2012 Completed (Bolus) IV 1000 mL over: 1 hr, Route: IV, kg, Total Volume: 1,000, Bolus Dose, Priority: STAT, Start date: 01/24/12 21:58:00, Duration: 1 doses or times, Stop date: 01/24/12 22:57:00 influenza virus 0.5 ml, Route: IM, Drug Form: INJ, 03/31/2011 03/31/2011 Completed vaccine, inactivated Start date: 03/31/11 9:00:00, Stop date: 03/31/11 9:00:00 Toradol 30 mg/mL 30 mg, Route: IV, 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, 01/25/2012 01/25/2012 Completed injectable solution ONCE, Dosing Weight 62.727, kg, Priority: STAT, Start date: 01/25/12 0:13:00, Stop date: 01/25/12 0:13:00 Immunizations Vaccine Date Status Hx pneumococcal vaccine 12/29/2010 Auth (Verified) influenza virus vaccine, inactivated 03/31/2011 Not Done Vital Signs Most recent to oldest [Reference Range]: 1 Height 167.64 cm (01/24/2012 21:28:00) Weight 62.727 kg (01/24/2012 21:28:00) Results BEDSIDE GLUCOSE TESTING Most recent to oldest [Reference Range]: 1 2 Gluc POC Lifscn [70-99 mg/dL] 116 mg/dL 1 *HI* (01/24/2012 22:45:00) 91 mg/dL 2 (01/24/2012 21:32:00) Comment1 Notify RN/MD *NA* (01/24/2012 21:32:00) 1Interpretive Data: Upper Reportable Limit: 200 mg/dL. 2Interpretive Data: Upper Reportable Limit: 200 mg/dL. URINALYSIS Most recent to oldest [Reference Range]: 1 2 UA Turbidity [Clear] Clear (01/24/2012 22:46:00) UA Color Colorless *NA* (01/24/2012 22:46:00) UA pH [5.0-8.0] 6.0 (01/24/2012 22:46:00) UA Spec Grav [<=1.030] 1.002 (01/24/2012 22:46:00) UA Glucose [Negative mg/dL] Negative mg/dL *NA* (01/24/2012 22:46:00) UA Blood [Negative] Negative (01/24/2012 22:46:00) UA Ketones [Negative mg/dL] Negative mg/dL *NA* (01/24/2012 22:46:00) UA Protein [Negative mg/dL] Negative mg/dL (01/24/2012 22:46:00) UA Urobilinogen [0.1-1.0 mg/dL] <=1.0 mg/dL *NA* (01/24/2012 22:46:00) UA Bili [Negative] Negative *NA* (01/24/2012 22:46:00) UA Leuk Est [Negative] Trace *ABN* (01/24/2012 22:46:00) UA Nitrite [Negative] Negative (01/24/2012 22:46:00) UA WBC [0-5 /HPF] 2 /HPF (01/24/2012 22:46:00) UA Sq Epi [Few /LPF] Occasional /LPF *NA* (01/24/2012 22:46:00) UA Trans Epi [<=0 /LPF] 3 /LPF *HI* (01/24/2012 22:46:00) CHEMISTRY Most recent to oldest [Reference Range]: 1 2 Sodium Lvl [135-145 mEq/L] 144 mEq/L (01/24/2012 21:46:00) Potassium Lvl [3.5-5.1 mEq/L] 3.5 mEq/L (01/24/2012 21:46:00) Chloride Lvl [95-109 mEq/L] 108 mEq/L (01/24/2012 21:46:00) CO2 [24-32 mEq/L] 26 mEq/L (01/24/2012 21:46:00) AGAP [10.0-20.0 mEq/L] 13.5 mEq/L (01/24/2012 21:46:00) Creatinine Lvl [0.5-1.4 mg/dL] 0.8 mg/dL (01/24/2012 21:46:00) BUN [7-22 mg/dL] 11 mg/dL (01/24/2012 21:46:00) B/C Ratio [6-25] 14 (01/24/2012 21:46:00) Glucose Lvl [70-99 mg/dL] 79 mg/dL 3 (01/24/2012 21:46:00) Total Protein [6.4-8.4 g/dL] 7.3 g/dL (01/24/2012 21:46:00) Albumin Lvl [3.5-5.0 g/dL] 4.2 g/dL (01/24/2012 21:46:00) Globulin [2.0-4.0 g/dL] 3.1 g/dL (01/24/2012 21:46:00) A/G Ratio [0.7-1.6] 1.4 (01/24/2012:46:00) Calcium Lvl [8.5-10.5 mg/dL] 9.1 mg/dL (01/24/2012 21:46:00) ALT [0-65 unit/L] 76 unit/L *HI* (01/24/2012 21:46:00) AST [0-37 unit/L] 45 unit/L *HI* (01/24/2012 21:46:00) Alk Phos [39-136 unit/L] 95 unit/L (01/24/2012 21:46:00) Bili Total [0.2-1.3 mg/dL] 0.2 mg/dL (01/24/2012 21:46:00) U Amph Scr [Negative] Negative *NA* (01/24/2012 22:46:00) U Pilar Scr [Negative] Negative *NA* (01/24/2012 22:46:00) U Benzodia Scr [Negative] Positive *ABN* (01/24/2012 22:46:00) U Cocaine Scr [Negative] Negative *NA* (01/24/2012 22:46:00) U Opiate Scr [Negative] Negative *NA* (01/24/2012 22:46:00) U Phencyc Scr [Negative] Negative *NA* (01/24/2012 22:46:00) U Cannab Scr [Negative] Negative *NA* (01/24/2012 22:46:00) UDS Note See Note 4 (01/24/2012 22:46:00) 3Interpretive Data: Adult reference range values reflect the clinical guidelines of the [place] [employer]. 4Interpretive Data: Drugs reported as positive have not been confirmed by a second method and should be used for medical purposes only. To order confirmation, contact laboratory. note: Below are cut-off concentrations for all urine drugs of abuse performed in the laboratory. Some drugs listed in the table may not be included in this panel. Description Cut-off concentration Amphetamine 1000 ng/mL Barbiturates 200 ng/mL Benzodiazepines 300 ng/mL Cocaine metabolites 300 ng/mL Opiates 300 ng/mL Phencyclidine 25 ng/mL Propoxyphene 300 ng/mL Marijuana metabolites 50 ng/mL Methadone 300 ng/mL Urine alcohol 20 mg/dL HEMATOLOGY Most recent to oldest [Reference Range]: 1 2 WBC [3.7-10.4 K/CMM] 4.2 K/CMM (01/24/2012 21:46:00) RBC [4.20-5.40 M/CMM] 3.72 M/CMM *LOW* (01/24/2012 21:46:00) Hgb [12.0-16.0 g/dL] 11.8 g/dL *LOW* (01/24/2012 21:46:00) Hct [36.0-48.0 %] 35.6 % *LOW* (01/24/2012:46:00) MCV [81.0-99.0 fL] 95.6 fL (01/24/2012 21:46:00) MCH [27.0-31.0 pg] 31.7 pg *HI* (01/24/2012:46:00) MCHC [32.0-36.0 g/dL] 33.2 g/dL (01/24/2012 21:46:00) RDW [11.5-14.5 %] 14.1 % (01/24/2012 21:46:00) Platelet [133-450 K/CMM] 246 K/CMM (01/24/2012 21:46:00) MPV [7.4-10.4 fL] 9.9 fL (01/24/2012 21:46:00) Segs [45.0-75.0 %] 34.7 % *LOW* (01/24/2012:46:00) Lymphocytes [20.0-40.0 %] 52.3 % *HI* (01/24/2012:46:00) Monocytes [2.0-12.0 %] 8.5 % (01/24/2012 21:46:00) Eosinophils [0.0-4.0 %] 4.1 % *HI* (01/24/2012 21:46:00) Basophils [0.0-1.0 %] 0.4 % (01/24/2012 21:46:00) Segs-Bands # [1.5-8.1 K/CMM] 1.4 K/CMM *LOW* (01/24/2012 21:46:00) Lymphocytes # [1.0-5.5 K/CMM] 2.2 K/CMM (01/24/2012 21:46:00) Monocytes # [0.0-0.8 K/CMM] 0.4 K/CMM (01/24/2012 21:46:00) Eosinophils # [0.0-0.5 K/CMM] 0.2 K/CMM (01/24/2012 21:46:00) Basophils # [0.0-0.2 K/CMM] 0.0 K/CMM (01/24/2012 21:46:00) Microbiology Reports PROCEDURE:Culture: Urine STATUS: In Progress BODY SITE: COLLECTED DATE/TIME: 01/24/2012 23:20:00 SOURCE: Urine, Clean Catch FREE TEXT SOURCE: PRELIMINARY REPORTS Preliminary Report No Growth; Holding
--- OUTSIDE RECORDS SUMMARY | 2018-09-18 17:12 | XMS REPORT | CCD ---
Author Author Auto Generated Organization [facility] Address Unknown Phone Unavailable Care Team Providers Care Operations Supervisor Name Role Phone Corey Bolaños CP Allergies, Adverse Reactions, Alerts Substance Reaction Status aspirin Active Augmentin Active Food MSG Active Imitrex Active iodine Active Iron (Ferrous Sulfate) Active Paper Tape Active shellfish Active Problem List Condition Effective Dates Status Abdominal pain Active Anxiety Active Cancer of cervix Active Depression Active Female genital organ symptoms1 Active Gastric bypass operation Active Laparoscopic procedure Active Lumbar puncture headache Active Lysis of adhesions Active Migraine Active Sinusitis Active Ulcer Active 1CANCELLED Medications Medication Instructions Start Date End Date Status acetaminophen 975 mg, 3 tab, Route: PO, Drug 12/31/2011 12/31/2011 Completed form: TAB, ONCE, kg, Priority: STAT, Start date: 12/31/11 18:21:00, Stop date: 12/31/11 18:21:00 Sodium Chloride 0.9% 1,000 mL, Rate: 1,000 ml/hr, Infuse 12/31/2011 12/31/2011 Completed (Bolus) IV 1,000 mL over: 1 hr, Route: IV, Dosing Weight 66.818 kg, Total Volume: 1,000, Bolus Dose, Priority: STAT, Start date: 12/31/11 18:20:00, Duration: 1 doses or times, Stop date: 12/31/11 19:19:00 Fioricet 1 tab, Route: PO, Drug Form: TAB, 12/31/2011 12/31/2011 Completed kg, ONCE, Start date: 12/31/11 19:57:00, Stop date: 12/31/11 19:57:00 GoLYTELY 4,000 ml, Route: PO, Drug Form: 01/01/2012 01/01/2012 Completed PDR/REC, kg, ONCE, Start date: 01/01/12 17:17:00, Duration: 1 doses or times, Stop date: 01/01/12 17:17:00 Esgic 1 tab, Route: PO, Drug Form: TAB, 01/01/2012 01/02/2012 Discontinued Q4H, PRN Other -See Comment, Start date: 01/01/12 0:36:00, Duration: 30 day, Stop date: 01/31/12 0:35:00 Zofran 4 mg, Route: PO, ONCE, Dosing 12/31/2011 12/31/2011 Completed Weight 66.818, kg, Start date: 12/31/11 19:27:00, Stop date: 12/31/11 19:27:00 Zofran 4 mg, 2 mL, Route: IVP, Drug form: 01/01/2012 01/02/2012 Discontinued INJ, Q6H, kg, PRN Nausea, Start date: 01/01/12 14:09:00, Duration: 30 day, Stop date: 01/31/12 14:08:00 trazodone 150 mg 150 mg, 1 tab, PO, Bedtime, PRN, 30 12/31/2011 Ordered oral tablet tab, insomnia (for waking up after taking other sleep meds), Substitution Allowed, TAB temazepam 15 mg oral 15 mg, 1 cap, PO, Bedtime, 12/31/2011 Ordered capsule Substitution Allowed, with zolpidem for PTSD with zolpidem for PTSD temazepam 15 mg, 1 cap, Route: PO, Drug form: 12/31/2011 01/02/2012 Discontinued CAP, Bedtime, kg, Start date: 12/31/11 23:59:00, Duration: 30 day, Stop date: 01/30/12 21:00:00 trazodone 150 mg, 3 tab, Route: PO, Drug 12/31/2011 01/02/2012 Discontinued form: TAB, Bedtime, kg, PRN Sleep, Start date: 12/31/11 21:29:00, Duration: 30 day, Stop date: 01/30/12 21:28:00 Pristiq 50 mg oral 50 mg, 1 tab, Route: PO, Drug form: 01/01/2012 12/31/2011 Deleted tablet, extended ERTAB, Daily, Dosing Weight 66.818, release kg, Start date: 01/01/12 9:00:00, Duration: 30 day, Stop date: 01/30/12 9:00:00 Saline Flush 0.9% 5 ml, Route: IVP, Drug Form: INJ, 01/01/2012 01/02/2012 Discontinued kg, PRN, PRN Line Flush, Start date: 01/01/12 8:33:00, Duration: 30 day, Stop date: 01/31/12 8:32:00 Sodium Chloride 1,000 mL, Rate: 125 ml/hr, Infuse 01/01/2012 01/02/2012 Discontinued 0.45% IV 1,000 mL over: 8 hr, Route: IV, Dosing Weight 66.818 kg, Total Volume: 1,000, Start date: 01/01/12 8:33:00, Duration: 30 day, Stop date: 01/31/12 8:32:00 ondansetron 4 mg, 2 mL, Route: IVP, Drug form: 01/01/2012 01/01/2012 Completed INJ, ONCE, kg, PRN Nausea & Vomiting, Start date: 01/01/12 8:33:00 zolpidem 10 mg oral 20 mg, 2 tab, PO, Bedtime, 12/31/2011 Ordered tablet Substitution Allowed, with temazepam for PTSD with temazepam for PTSD Protonix 40 mg, Route: IVP, 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, 01/01/2012 01/02/2012 Discontinued Daily, kg, Patient is NPO, Start date: 01/01/12 9:00:00, Duration: 30 day, Stop date: 01/30/12 9:00:00 MiraLax 17 gm, 1 pkt, Route: PO, Drug form: 01/02/2012 01/02/2012 Canceled PWDR, BID, kg, Start date: 01/02/12 17:00:00, Duration: 30 day, Stop date: 02/01/12 9:00:00 nitroglycerin 0.4 mg 0.4 mg, 1 tab, Route: SL, Drug 12/31/2011 01/02/2012 Discontinued sublingual tablet form: TAB, Q5Min, PRN Chest Pain, Start date: 12/31/11 23:44:00, Duration: 30 day, Stop date: 01/30/12 23:43:00 atropine 0.5 mg, 5 mL, Route: IVP, Drug 12/31/2011 01/02/2012 Discontinued form: INJ, PRN, PRN Bradycardia, Start date: 12/31/11 23:43:00, Duration: 30 day, Stop date: 01/30/12 23:42:00 NS + KCL 20mEq/L 1,000 mL, Rate: 125 ml/hr, Infuse 12/31/2011 01/01/2012 Discontinued 1000ml (Premix) over: 8 hr, Route: IV, Dosing 1,000 mL Weight 66.818 kg, Total Volume: 1,000, Start date: 12/31/11 21:27:00, Duration: 30 day, Stop date: 01/30/12 21:26:00 influenza virus 0.5 ml, Route: IM, Drug Form: INJ, 03/31/2011 03/31/2011 Completed vaccine, inactivated Start date: 03/31/11 9:00:00, Stop date: 03/31/11 9:00:00 Pt's own med Pt's own med DESVENLAFAXINE Pt's 01/01/2012 01/02/2012 Discontinued DESVENLAFAXINE Pt's own med, 50 mg, Drug form: MISC, own med Route: PO, Daily, 01/01/12 9:00:00, Duration: 30 day, Stop date: 01/30/12 9:00:00 Ativan 1 mg, 0.5 mL, Route: IV, Drug form: 01/01/2012 01/02/2012 Discontinued INJ, Q4H, kg, PRN Anxiety, Priority: NOW, Start date: 01/01/12 11:02:00, Duration: 30 day, Stop date: 01/31/12 11:01:00 vitamin A & D 1 appl, Route: TOP, QID, Drug form: 01/01/2012 01/02/2012 Discontinued topical OINT, Start date: 01/01/12 21:00:00, Duration: 30 day, Stop date: 01/31/12 17:00:00 Immunizations Vaccine Date Status Hx pneumococcal vaccine 12/29/2010 Auth (Verified) influenza virus vaccine, inactivated 03/31/2011 Not Done Vital Signs Most recent to oldest [Reference Range]: 1 2 3 Height 170.18 cm (12/31/2011 17:20:00) Temperature Oral [96.4-99.1 DegF] 97.5 DegF (01/02/2012 08:00:00) 95.5 DegF *LOW* (01/02/2012 04:00:00) 95.4 DegF *LOW* (01/02/2012 00:00:00) Systolic Blood Pressure [90-140 mmHg] 110 mmHg (01/02/2012 10:02:00) 142 mmHg *HI* (01/02/2012 09:15:00) 113 mmHg (01/02/2012 09:00:00) Diastolic Blood Pressure [60-90 mmHg] 82 mmHg (01/02/2012 10:02:00) 73 mmHg (01/02/2012 09:15:00) 77 mmHg (01/02/2012 09:00:00) Respiratory Rate [14-20 BRMIN] 16 BRMIN (01/02/2012 09:15:00) 16 BRMIN (01/02/2012 09:00:00) 15 BRMIN (01/02/2012 08:45:00) Peripheral Pulse Rate [60-100 bpm] 60 bpm (01/02/2012 10:02:00) 54 bpm *LOW* (01/02/2012 08:00:00) 65 bpm (01/02/2012 04:00:00) Weight 66.818 kg (12/31/2011 17:20:00) Results BEDSIDE GLUCOSE TESTING Most recent to [Reference Range]: 1 2 3 Gluc POC Lifscn [70-99 mg/dL] 65 mg/dL 1 *LOW* (01/02/2012 07:48:00) Comment1 Notify RN/MD *NA* (01/02/2012 07:48:00) 1Interpretive Data: Upper Reportable Limit: 200 mg/dL. BLOOD BANK RESULTS Most recent to oldest [Reference Range]: 1 2 3 ABO/Rh O POS *Unknown* (01/01/2012 08:51:00) Antibody Scrn Negative (01/01/2012 08:51:00) CHEMISTRY Most recent to oldest [Reference Range]: 1 2 3 Sodium Lvl [135-145 mEq/L] 144 mEq/L (01/02/2012 05:05:00) Potassium Lvl [3.5-5.1 mEq/L] 3.5 mEq/L (01/02/2012 05:05:00) Chloride Lvl [95-109 mEq/L] 110 mEq/L *HI* (01/02/2012 05:05:00) CO2 [24-32 mEq/L] 26 mEq/L (01/02/2012 05:05:00) AGAP [10.0-20.0 mEq/L] 11.5 mEq/L (01/02/2012 05:05:00) Creatinine Lvl [0.5-1.4 mg/dL] 0.6 mg/dL (01/02/2012 05:05:00) BUN [7-22 mg/dL] 4 mg/dL *LOW* (01/02/2012 05:05:00) Glucose Lvl [70-99 mg/dL] 70 mg/dL 2 (01/02/2012 05:05:00) Calcium Lvl [8.5-10.5 mg/dL] 8.3 mg/dL *LOW* (01/02/2012 05:05:00) 2Interpretive Data: Adult reference range values reflect the clinical guidelines of the [place] [employer]. HEMATOLOGY Most recent to oldest [Reference Range]: 1 2 3 WBC [3.7-10.4 K/CMM] 2.6 K/CMM *LOW* (01/02/2012 05:05:00) 3.3 K/CMM *LOW* (12/31/2011 18:55:00) RBC [4.20-5.40 M/CMM] 2.99 M/CMM *LOW* (01/02/2012 05:05:00) 3.42 M/CMM *LOW* (12/31/2011 18:55:00) Hgb [12.0-16.0 g/dL] 9.5 g/dL *LOW* (01/02/2012 05:05:00) 10.7 g/dL *LOW* (01/02/2012 00:15:00) 10.4 g/dL *LOW* (01/01/2012 18:30:00) Hct [36.0-48.0 %] 28.1 % *LOW* (01/02/2012 05:05:00) 32.1 % *LOW* (12/31/2011 18:55:00) MCV [81.0-99.0 fL] 94.3 fL (01/02/2012 05:05:00) 94.1 fL (12/31/2011 18:55:00) MCH [27.0-31.0 pg] 31.8 pg *HI* (01/02/2012 05:05:00) 31.8 pg *HI* (12/31/2011 18:55:00) MCHC [32.0-36.0 g/dL] 33.8 g/dL (01/02/2012 05:05:00) 33.8 g/dL (12/31/2011 18:55:00) RDW [11.5-14.5 %] 16.1 % *HI* (01/02/2012 05:05:00) 16.5 % *HI* (12/31/2011 18:55:00) Platelet [133-450 K/CMM] 149 K/CMM (01/02/2012 05:05:00) 209 K/CMM (12/31/2011 18:55:00) MPV [7.4-10.4 fL] 10.4 fL (01/02/2012 05:05:00) 10.1 fL (12/31/2011 18:55:00) Segs [45.0-75.0 %] 24.1 % *LOW* (01/02/2012 05:05:00) 36.3 % *LOW* (12/31/2011 18:55:00) Lymphocytes [20.0-40.0 %] 63.1 % *HI* (01/02/2012 05:05:00) 52.7 % *HI* (12/31/2011 18:55:00) Monocytes [2.0-12.0 %] 7.1 % (01/02/2012 05:05:00) 5.7 % (12/31/2011 18:55:00) Eosinophils [0.0-4.0 %] 4.9 % *HI* (01/02/2012 05:05:00) 4.5 % *HI* (12/31/2011 18:55:00) Basophils [0.0-1.0 %] 0.8 % (01/02/2012 05:05:00) 0.8 % (12/31/2011 18:55:00) Segs-Bands # [1.5-8.1 K/CMM] 0.6 K/CMM *LOW* (01/02/2012 05:05:00) 1.2 K/CMM *LOW* (12/31/2011 18:55:00) Lymphocytes # [1.0-5.5 K/CMM] 1.6 K/CMM (01/02/2012 05:05:00) 1.7 K/CMM (12/31/2011 18:55:00) Monocytes # [0.0-0.8 K/CMM] 0.2 K/CMM (01/02/2012 05:05:00) 0.2 K/CMM (12/31/2011 18:55:00) Eosinophils # [0.0-0.5 K/CMM] 0.1 K/CMM (01/02/2012 05:05:00) 0.2 K/CMM (12/31/2011 18:55:00) Basophils # [0.0-0.2 K/CMM] 0.0 K/CMM (01/02/2012 05:05:00) 0.0 K/CMM (12/31/2011 18:55:00) RBC Morph Normal (01/02/2012 05:05:00) Plt Morph Normal (01/02/2012 05:05:00) PT [12.0-14.7 seconds] 14.2 seconds (01/02/2012 05:05:00) INR [0.85-1.17] 1.08 3 (01/02/2012 05:05:00) PTT [22.9-35.8 seconds] 32.6 seconds 4 (01/02/2012 05:05:00) 3Interpretive Data: RECOMMENDED RANGES FOR PROTIME INR: 2.0-3.0 for most medical and surgical thromboembolic states. 2.5-3.5 for artificial heart valves and recurrent embolism. INR SHOULD BE USED ONLY FOR PATIENTS ON STABLE ANTICOAGULANT THERAPY. 4Interpretive Data: Heparin Therapeutic Range: 57 - 92 Seconds
--- OUTSIDE RECORDS SUMMARY | 2018-09-18 17:12 | XMS REPORT | CCD ---
Author Author Auto Generated Organization [facility] Address Unknown Phone Unavailable Care Team Providers Care Stonemason Helper Name Role Phone Temi Forrest CP Allergies, Adverse Reactions, Alerts Substance Reaction [...] Medication Instructions Start Date End Date Status Zofran ODT 4 mg oral 4 mg, 1 tab, PO, BID, PRN, Dissolve 04/08/2012 Ordered tablet, tab under tongue, 10 tab, Nausea disintegrating and Vomiting, Substitution Allowed Dissolve tab under tongue Zofran 4 mg, Route: IVP, 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, 04/08/2012 04/08/2012 Completed ONCE, Dosing Weight 61.818, kg, Priority: STAT, Start date: 04/08/12 17:04:00, Stop date: 04/08/12 17:04:00 Midrin 1 tab, Route: PO, Drug Form: CAP, 04/08/2012 04/08/2012 Discontinued Dosing Weight 61.818, kg, ONCE, Start date: 04/08/12 17:31:00, Stop date: 04/08/12 17:31:00 Esgic 1 tab, Route: PO, Drug Form: TAB, 04/08/2012 04/08/2012 Completed ONCE, Start date: 04/08/12 17:54:00, Stop date: 04/08/12 17:54:00 Motrin 800 mg, Route: PO, Drug form: TAB, 04/08/2012 04/08/2012 Completed ONCE, Dosing Weight 61.818, kg, Priority: STAT, Start date: 04/08/12 16:27:00, Stop date: 04/08/12 16:27:00 influenza virus 0.5 ml, Route: IM, Drug Form: INJ, 03/31/2011 03/31/2011 Completed vaccine, inactivated Start date: 03/31/11 9:00:00, Stop date: 03/31/11 9:00:00 Immunizations Vaccine Date Status Hx pneumococcal vaccine 12/29/2010 Auth (Verified) influenza virus vaccine, inactivated 03/31/2011 Not Done Vital Signs Most recent to oldest [Reference Range]: 1 Height 167.64 cm (04/08/2012 14:14:00) Weight 61.818 kg (04/08/2012 14:14:00) Results CHEMISTRY Most recent to oldest [Reference Range]: 1 Sodium Lvl [135-145 mEq/L] 145 mEq/L (04/08/2012 14:43:00) Potassium Lvl [3.5-5.1 mEq/L] 4.2 mEq/L (04/08/2012 14:43:00) Chloride Lvl [95-109 mEq/L] 106 mEq/L (04/08/2012 14:43:00) CO2 [24-32 mEq/L] 28 mEq/L (04/08/2012 14:43:00) AGAP [10.0-20.0 mEq/L] 15.2 mEq/L (04/08/2012 14:43:00) Creatinine Lvl [0.5-1.4 mg/dL] 0.8 mg/dL (04/08/2012 14:43:00) eGFR 95 mL/min/1.73m2 1 *NA* (04/08/2012 14:43:00) BUN [7-22 mg/dL] 15 mg/dL (04/08/2012 14:43:00) B/C Ratio [6-25] 19 (04/08/2012 14:43:00) Glucose Lvl [70-99 mg/dL] 85 mg/dL 2 (04/08/2012 14:43:00) Total Protein [6.4-8.4 g/dL] 6.9 g/dL (04/08/2012 14:43:00) Albumin Lvl [3.5-5.0 g/dL] 3.9 g/dL (04/08/2012:) Globulin [2.0-4.0 g/dL] 3.0 g/dL (04/08/2012:) A/G Ratio [0.7-1.6] 1.3 (04/08/2012:) Calcium Lvl [8.5-10.5 mg/dL] 8.6 mg/dL (04/08/2012:) ALT [0-65 unit/L] 49 unit/L (04/08/2012:) AST [0-37 unit/L] 17 unit/L (04/08/2012:) Alk Phos [39-136 unit/L] 77 unit/L (04/08/2012:) Bili Total [0.2-1.3 mg/dL] 0.2 mg/dL (04/08/2012:) 1Result Comment: The eGFR is calculated using the CKD-EPI formula. In most young, healthy individuals the eGFR will be >90 mL/min/1.73m2. The eGFR declines with age. An eGFR of 60-89 may be normal in some populations, particularly the elderly, for whom the CKD-EPI formula has not been extensively validated. Use of the eGFR is not recommended in the following populations: Individuals with unstable creatinine concentrations, including patients and those with serious co-morbid conditions. Patients with extremes in muscle mass or diet. The data above are obtained from the National Kidney Disease Education Program ( NKDEP) which additionally recommends that when the eGFR is used in patients with extremes of body mass index for purposes of drug dosing, the eGFR should be mul tiplied by the estimated BMI. 2Interpretive Data: Adult reference range values reflect the clinical guidelines of the [place] [employer]. HEMATOLOGY Most recent to oldest [Reference Range]: 1 WBC [3.7-10.4 K/CMM] 4.5 K/CMM (04/08/201243:) RBC [4.20-5.40 M/CMM] 3.64 M/CMM *LOW* (04/08/2012) Hgb [12.0-16.0 g/dL] 11.9 g/dL *LOW* (04/08/2012 14:43:00) Hct [36.0-48.0 %] 35.3 % *LOW* (04/08/2012 14:43:00) MCV [81.0-99.0 fL] 97.2 fL (04/08/2012 14:43:00) MCH [27.0-31.0 pg] 32.6 pg *HI* (04/08/2012 14:43:00) MCHC [32.0-36.0 g/dL] 33.6 g/dL (04/08/2012 14:43:00) RDW [11.5-14.5 %] 12.9 % (04/08/2012 14:43:00) Platelet [133-450 K/CMM] 257 K/CMM (04/08/2012 14:43:00) MPV [7.4-10.4 fL] 9.2 fL (04/08/2012 14:43:00) Segs [45.0-75.0 %] 52.7 % (04/08/2012 14:43:00) Lymphocytes [20.0-40.0 %] 35.0 % (04/08/2012 14:43:00) Monocytes [2.0-12.0 %] 8.6 % (04/08/2012 14:43:00) Eosinophils [0.0-4.0 %] 3.1 % (04/08/2012 14:43:00) Basophils [0.0-1.0 %] 0.6 % (04/08/2012 14:43:00) Segs-Bands # [1.5-8.1 K/CMM] 2.4 K/CMM (04/08/2012 14:43:00) Lymphocytes # [1.0-5.5 K/CMM] 1.6 K/CMM (04/08/2012 14:43:00) Monocytes # [0.0-0.8 K/CMM] 0.4 K/CMM (04/08/2012 14:43:00) Eosinophils # [0.0-0.5 K/CMM] 0.1 K/CMM (04/08/2012 14:43:00) Basophils # [0.0-0.2 K/CMM] 0.0 K/CMM (04/08/2012 14:43:00)
--- OUTSIDE RECORDS SUMMARY | 2018-09-18 17:12 | XMS REPORT | CCD ---
Author Author Auto Generated Organization [facility] Address Unknown Phone Unavailable Care Team Providers Care Insurance Sales Associate Name Role Phone Rody Santiago CP Allergies, Adverse Reactions, Alerts Substance Reaction [...] Medication Instructions Start Date End Date Status influenza virus 0.5 ml, Route: IM, Drug Form: INJ, 03/31/2011 03/31/2011 Completed vaccine, inactivated Start date: 03/31/11 9:00:00, Stop date: 03/31/11 9:00:00 Immunizations Vaccine Date Status Hx pneumococcal vaccine 12/29/2010 Auth (Verified) influenza virus vaccine, inactivated 03/31/2011 Not Done
--- OUTSIDE RECORDS SUMMARY | 2018-09-18 17:12 | XMS REPORT | CCD ---
Author Author Auto Generated Organization [facility] Address Unknown Phone Unavailable Care Team Providers Care Engraver Pantograph Name Role Phone Antonio Hope CP Allergies, Adverse Reactions, Alerts Substance Reaction [...] Medication Instructions Start Date End Date Status morphine Sulfate 2 mg, Route: IVP, ONCE, Dosing 12/31/2011 12/31/2011 Completed Weight 66.875, kg, Start date: 12/31/11 0:13:00, Stop date: 12/31/11 0:13:00 Saline Flush 0.9% 5 ml, Route: IVP, Drug Form: INJ, 12/30/2011 12/31/2011 Discontinued kg, PRN, PRN Line Flush, Start date: 12/30/11 23:07:00, Duration: 24 hr, Stop date: 12/31/11 23:06:00 Zofran 4 mg, Route: IVP, 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, 12/31/2011 12/31/2011 Completed ONCE, Dosing Weight 66.875, kg, Priority: STAT, Start date: 12/31/11 0:45:00, Stop date: 12/31/11 0:45:00 influenza virus 0.5 ml, Route: IM, Drug Form: INJ, 03/31/2011 03/31/2011 Completed vaccine, inactivated Start date: 03/31/11 9:00:00, Stop date: 03/31/11 9:00:00 Immunizations Vaccine Date Status Hx pneumococcal vaccine 12/29/2010 Auth (Verified) influenza virus vaccine, inactivated 03/31/2011 Not Done Vital Signs Most recent to oldest [Reference Range]: 1 Weight 66.875 kg (12/30/2011 22:33:00) Results URINALYSIS Most recent to oldest [Reference Range]: 1 UA Turbidity [Clear] Clear (12/30/2011 23:17:00) UA Color Ltyellow *NA* (12/30/2011 23:17:00) UA pH [5.0-8.0] 5.0 (12/30/2011 23:17:00) UA Spec Grav [<=1.030] 1.019 (12/30/2011 23:17:00) UA Glucose [Negative mg/dL] Negative mg/dL *NA* (12/30/2011 23:17:00) UA Blood [Negative] Negative (12/30/2011 23:17:00) UA Ketones [Negative mg/dL] Negative mg/dL *NA* (12/30/2011 23:17:00) UA Protein [Negative mg/dL] Negative mg/dL (12/30/2011 23:17:00) UA Urobilinogen [0.1-1.0 mg/dL] <=1.0 mg/dL *NA* (12/30/2011 23:17:00) UA Bili [Negative] Negative *NA* (12/30/2011 23:17:00) UA Leuk Est [Negative] Negative (12/30/2011 23:17:00) UA Nitrite [Negative] Negative (12/30/2011 23:17:00) UA WBC [0-5 /HPF] 1 /HPF (12/30/2011 23:17:00) UA RBC [0-2 /HPF] 4 /HPF *HI* (12/30/2011 23:17:00) UA Sq Epi [Few /LPF] Occasional /LPF *NA* (12/30/2011 23:17:00) UA Hyal Cast [0-2 /LPF] 1 /LPF (12/30/2011 23:17:00) STOOL TESTS Most recent to oldest [Reference Range]: 1 Occult Bld Stl [Negative] Positive *ABN* (12/31/2011 00:13:00) CHEMISTRY Most recent to oldest [Reference Range]: 1 Sodium Lvl [135-145 mEq/L] 140 mEq/L (12/30/2011 23:17:00) Potassium Lvl [3.5-5.1 mEq/L] 3.8 mEq/L (12/30/2011 23:17:00) Chloride Lvl [95-109 mEq/L] 107 mEq/L (12/30/2011 23:17:00) CO2 [24-32 mEq/L] 23 mEq/L *LOW* (12/30/2011 23:17:00) AGAP [10.0-20.0 mEq/L] 13.8 mEq/L (12/30/2011 23:17:00) Creatinine Lvl [0.5-1.4 mg/dL] 0.8 mg/dL (12/30/2011 23:17:00) BUN [7-22 mg/dL] 14 mg/dL (12/30/2011 23:17:00) B/C Ratio [6-25] 18 (12/30/2011 23:17:00) Glucose Lvl [70-99 mg/dL] 91 mg/dL 1 (12/30/2011 23:17:00) Total Protein [6.4-8.4 g/dL] 7.9 g/dL (12/30/2011 23:17:00) Albumin Lvl [3.5-5.0 g/dL] 4.5 g/dL (12/30/2011 23:17:00) Globulin [2.0-4.0 g/dL] 3.4 g/dL (12/30/2011 23:17:00) A/G Ratio [0.7-1.6] 1.3 (12/30/2011 23:17:00) Calcium Lvl [8.5-10.5 mg/dL] 9.3 mg/dL (12/30/2011 23:17:00) ALT [0-65 unit/L] 46 unit/L (12/30/2011 23:17:00) AST [0-37 unit/L] 10 unit/L (12/30/2011 23:17:00) Alk Phos [39-136 unit/L] 94 unit/L (12/30/2011 23:17:00) Bili Total [0.2-1.3 mg/dL] 0.2 mg/dL (12/30/2011 23:17:00) Lipase Lvl [73-393 unit/L] 157 unit/L (12/30/2011:17:00) 1Interpretive Data: Adult reference range values reflect the clinical guidelines of the [place] [employer]. HEMATOLOGY Most recent to oldest [Reference Range]: 1 WBC [3.7-10.4 K/CMM] 6.5 K/CMM (12/30/2011 23:17:00) RBC [4.20-5.40 M/CMM] 4.09 M/CMM *LOW* (12/30/2011 23:17:00) Hgb [12.0-16.0 g/dL] 12.8 g/dL (12/30/2011:17:00) Hct [36.0-48.0 %] 38.6 % (12/30/2011 23:17:00) MCV [81.0-99.0 fL] 94.4 fL (12/30/2011 23:17:00) MCH [27.0-31.0 pg] 31.3 pg *HI* (12/30/2011 23:17:00) MCHC [32.0-36.0 g/dL] 33.2 g/dL (12/30/2011 23:17:00) RDW [11.5-14.5 %] 16.3 % *HI* (12/30/2011 23:17:00) Platelet [133-450 K/CMM] 263 K/CMM (12/30/2011 23:17:00) MPV [7.4-10.4 fL] 9.9 fL (12/30/2011 23:17:00) Segs [45.0-75.0 %] 58.4 % (12/30/2011 23:17:00) Lymphocytes [20.0-40.0 %] 33.0 % (12/30/2011:17:00) Monocytes [2.0-12.0 %] 6.1 % (12/30/2011 23:17:00) Eosinophils [0.0-4.0 %] 2.1 % (12/30/2011 23:17:00) Basophils [0.0-1.0 %] 0.4 % (12/30/2011 23:17:00) Segs-Bands # [1.5-8.1 K/CMM] 3.8 K/CMM (12/30/2011 23:17:00) Lymphocytes # [1.0-5.5 K/CMM] 2.1 K/CMM (12/30/2011 23:17:00) Monocytes # [0.0-0.8 K/CMM] 0.4 K/CMM (12/30/2011 23:17:00) Eosinophils # [0.0-0.5 K/CMM] 0.1 K/CMM (12/30/2011 23:17:00) Basophils # [0.0-0.2 K/CMM] 0.0 K/CMM (12/30/2011 23:17:00) IMMUNOLOGY Most recent to oldest [Reference Range]: 1 CDC-HIV 1/2 Ab [Negative] Negative *NA* (12/30/2011 23:17:00)
--- OUTSIDE RECORDS SUMMARY | 2018-09-18 17:12 | XMS REPORT | CCD ---
Author Author Auto Generated Organization [facility] Address Unknown Phone Unavailable Care Team Providers Care Physician Scribe Name Role Phone Antonio Hope CP Allergies, Adverse Reactions, Alerts Substance Reaction Status aspirin Active Augmentin Active Food MSG Active Imitrex Active iodine Active Paper Tape Active shellfish Active Problem List Condition Effective Dates Status Abdominal pain Active Anxiety Active Cancer of cervix Active Depression Active Female genital organ symptoms1 Active Gastric bypass operation Active Kidney infection Resolved Laparoscopic procedure Active Lumbar puncture headache Active Lysis of adhesions Active Migraine Active Sinusitis Active Ulcer Active 1CANCELLED Medications Medication Instructions Start Date End Date Status Zofran 4 mg, 2 mL, Route: IVP, Drug form: 05/31/2012 05/31/2012 Completed INJ, ONCE, Dosing Weight 65, kg, Priority: STAT, Start date: 05/31/12 7:57:00, Stop date: 05/31/12 7:57:00 Sodium Chloride 0.9% 1,000 mL, 1000 ml/hr, Route: IV, 05/31/2012 05/31/2012 Completed (Bolus) IV Drug Form: INJ, Dosing Weight 65, kg, ONCE, Bolus Dose. Infuse over 1 hour., STAT, Start date: 05/31/12 7:57:00, Stop date: 05/31/12 7:57:00 Saline Flush 0.9% 5 ml, Route: IVP, Drug Form: INJ, 05/31/2012 06/01/2012 Discontinued Dosing Weight 65, kg, PRN, PRN Line Flush, Start date: 05/31/12 7:57:00, Duration: 30 day, Stop date: 06/30/12 7:56:00 Reglan 10 mg, Route: IVP, ONCE, Dosing 05/31/2012 05/31/2012 Completed Weight 65, kg, Priority: STAT, Start date: 01/17/13 8:31:00, Stop date: 05/31/12 8:31:00 influenza virus 0.5 ml, Route: IM, Drug Form: INJ, 03/31/2011 03/31/2011 Completed vaccine, inactivated Start date: 03/31/11 9:00:00, Stop date: 03/31/11 9:00:00 droperidol 1.25 mg, Route: IVP, ONCE, Dosing 05/31/2012 05/31/2012 Completed Weight 65, kg, PRN Nausea & Vomiting, Start date: 05/31/12 9:20:00 Immunizations Vaccine Date Status Hx pneumococcal vaccine 12/29/2010 Auth (Verified) influenza virus vaccine, inactivated 03/31/2011 Not Done Vital Signs Most recent to oldest [Reference Range]: 1 Height 170.18 cm (05/31/2012 07:41:00) Weight 65.000 kg (05/31/2012 07:41:00) Results URINALYSIS Most recent to oldest [Reference Range]: 1 UA Turbidity [Clear] Clear (05/31/2012 08:30:00) UA Color [Yellow] Yellow *NA* (05/31/2012 08:30:00) UA pH [5.0-8.0] 5.0 (05/31/2012 08:30:00) UA Spec Grav [<=1.030] 1.016 (05/31/2012 08:30:00) UA Glucose [Negative mg/dL] Negative mg/dL *NA* (05/31/2012 08:30:00) UA Blood [Negative] Negative (05/31/2012 08:30:00) UA Ketones [Negative mg/dL] Negative mg/dL *NA* (05/31/2012 08:30:00) UA Protein [Negative mg/dL] Negative mg/dL (05/31/2012 08:30:00) UA Urobilinogen [0.1-1.0 mg/dL] <=1.0 mg/dL *NA* (05/31/2012 08:30:00) UA Bili [Negative] Negative *NA* (05/31/2012 08:30:00) UA Leuk Est [Negative] Small *ABN* (05/31/2012 08:30:00) UA Nitrite [Negative] Negative (05/31/2012 08:30:00) UA WBC [0-5 /HPF] 2 /HPF (05/31/2012 08:30:00) UA RBC [0-2 /HPF] <1 /HPF (05/31/2012 08:30:00) UA Sq Epi [Few /LPF] Occasional /LPF *NA* (05/31/2012 08:30:00) UA Mucus [None Seen /LPF] Few /LPF *NA* (05/31/2012 08:30:00) CHEMISTRY Most recent to oldest [Reference Range]: 1 Sodium Lvl [135-145 mEq/L] 141 mEq/L (05/31/2012 08:03:00) Potassium Lvl [3.5-5.1 mEq/L] 3.5 mEq/L (05/31/2012 08:03:00) Chloride Lvl [95-109 mEq/L] 105 mEq/L (05/31/2012 08:03:00) CO2 [24-32 mEq/L] 28 mEq/L (05/31/2012 08:03:00) AGAP [10.0-20.0 mEq/L] 11.5 mEq/L (05/31/2012 08:03:00) Creatinine Lvl [0.5-1.4 mg/dL] 0.9 mg/dL (05/31/2012 08:03:00) eGFR 83 mL/min/1.73m2 1 *NA* (05/31/2012 08:03:00) BUN [7-22 mg/dL] 13 mg/dL (05/31/2012 08:03:00) B/C Ratio [6-25] 14 (05/31/2012 08:03:00) Glucose Lvl [70-99 mg/dL] 130 mg/dL 2 *HI* (05/31/2012 08:03:00) Total Protein [6.4-8.4 g/dL] 7.2 g/dL (05/31/2012 08:03:00) Albumin Lvl [3.5-5.0 g/dL] 4.3 g/dL (05/31/2012 08:03:00) Globulin [2.0-4.0 g/dL] 2.9 g/dL (05/31/2012 08:03:00) A/G Ratio [0.7-1.6] 1.5 (05/31/201203:00) Calcium Lvl [8.5-10.5 mg/dL] 9.0 mg/dL (05/31/2012:00) ALT [0-65 unit/L] 61 unit/L (05/31/2012:00) AST [0-37 unit/L] 17 unit/L (05/31/2012) Alk Phos [39-136 unit/L] 86 unit/L (05/31/2012) Bili Total [0.2-1.3 mg/dL] 0.2 mg/dL (05/31/2012) Total CK [12-191 unit/L] 74 unit/L (05/31/2012) CK MB [0.5-3.6 ng/mL] <0.5 ng/mL (05/31/2012) CK MB Index [0.0-2.5] <0.7 (05/31/2012) Troponin-I [0.00-0.40 ng/mL] <0.02 ng/mL (05/31/2012:) 1Result Comment: The eGFR is calculated using [...] values reflect the clinical guidelines of the [place] [employer]. HEMATOLOGY Most recent to oldest [Reference Range]: 1 WBC [3.7-10.4 K/CMM] 5.7 K/CMM (05/31/2012 08:03:00) RBC [4.20-5.40 M/CMM] 3.83 M/CMM *LOW* (05/31/2012 08:03:00) Hgb [12.0-16.0 g/dL] 12.2 g/dL (05/31/2012 08:03:00) Hct [36.0-48.0 %] 37.0 % (05/31/2012 08:03:00) MCV [81.0-99.0 fL] 96.6 fL (05/31/2012 08:03:00) MCH [27.0-31.0 pg] 31.9 pg *HI* (05/31/2012 08:03:00) MCHC [32.0-36.0 g/dL] 33.0 g/dL (05/31/2012 08:03:00) RDW [11.5-14.5 %] 12.7 % (05/31/2012 08:03:00) Platelet [133-450 K/CMM] 272 K/CMM (05/31/2012 08:03:00) MPV [7.4-10.4 fL] 9.6 fL (05/31/2012 08:03:00) Segs [45.0-75.0 %] 58.7 % (05/31/2012 08:03:00) Lymphocytes [20.0-40.0 %] 33.6 % (05/31/2012 08:03:00) Monocytes [2.0-12.0 %] 5.5 % (05/31/2012 08:03:00) Eosinophils [0.0-4.0 %] 1.7 % (05/31/2012 08:03:00) Basophils [0.0-1.0 %] 0.5 % (05/31/2012 08:03:00) Segs-Bands # [1.5-8.1 K/CMM] 3.3 K/CMM (05/31/2012 08:03:00) Lymphocytes # [1.0-5.5 K/CMM] 1.9 K/CMM (05/31/2012 08:03:00) Monocytes # [0.0-0.8 K/CMM] 0.3 K/CMM (05/31/2012 08:03:00) Eosinophils # [0.0-0.5 K/CMM] 0.1 K/CMM (05/31/2012 08:03:00) Basophils # [0.0-0.2 K/CMM] 0.0 K/CMM (05/31/2012 08:03:00) PT [12.0-14.7 seconds] 12.7 seconds (05/31/2012 08:03:00) INR [0.85-1.17] 0.93 3 (05/31/2012 08:03:00) 3Interpretive Data: RECOMMENDED RANGES FOR PROTIME INR: 2.0-3.0 for most medical and surgical thromboembolic states. 2.5-3.5 for artificial heart valves and recurrent embolism. INR SHOULD BE USED ONLY FOR PATIENTS ON STABLE ANTICOAGULANT THERAPY.
--- OUTSIDE RECORDS SUMMARY | 2018-09-18 17:12 | XMS REPORT | CCD ---
Author Author Auto Generated Organization [facility] Address Unknown Phone Unavailable Care Team Providers Care Nursery Teacher Name Role Phone Corey Bolaños CP Allergies, [...] puncture headache Active Lysis of adhesions Active Malabsorption Resolved Migraine Active Sinusitis Active Ulcer Active 1CANCELLED Medications Medication Instructions Start Date End Date Status Bactrim DS oral 1 tab, PO, BID, 6 tab, Substitution 07/17/2012 07/20/2012 Ordered tablet Allowed, Maintenance diazepam 10 mg, 2 tab, Route: PO, Drug form: 07/18/2012 07/18/2012 Discontinued TAB, QID, Dosing Weight 66.364, kg, PRN, Start date: 07/18/12 5:26:00, Duration: 30 day, Stop date: 08/17/12 5:25:00, QID Valium 10 mg, 2 tab, Route: PO, Drug form: 07/18/2012 07/19/2012 Discontinued TAB, QID, Start date: 07/18/12 9:00:00, Duration: 30 day, Stop date: 08/16/12 21:00:00 Phenergan + Sodium 12.5 mg, 0.5 mL, Route: IVPB, ONCE, 07/18/2012 07/18/2012 Completed Chloride 0.9% IV 50 Dosing Weight 66.364, kg, Start mL date: 07/18/12 9:49:00, Stop date: 07/18/12 9:49:00 Zofran 4 mg, Route: IVP, 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, 07/17/2012 07/17/2012 Completed ONCE, Dosing Weight 66.364, kg, PRN Nausea, Priority: STAT, Start date: 07/17/12 17:47:00 morphine Sulfate 4 mg, Route: IVP, ONCE, Dosing 07/17/2012 07/17/2012 Completed Weight 66.364, kg, Start date: 07/17/12 17:47:00, Stop date: 07/17/12 17:47:00 Fioricet 1 tab, Route: PO, Drug Form: TAB, 07/19/2012 07/19/2012 Discontinued Dosing Weight 66.364, kg, Q4H, PRN Headache, Start date: 07/19/12 7:23:00, Duration: 30 day, Stop date: 08/18/12 7:22:00 influenza virus 0.5 ml, Route: IM, Drug Form: INJ, 07/18/2012 07/18/2012 Completed vaccine, inactivated Start date: 07/18/12 13:30:00, Stop date: 07/18/12 13:30:00 Benadryl 12.5 mg, Route: IVP, ONCE, Dosing 07/17/2012 07/17/2012 Completed Weight 66.364, kg, Priority: STAT, Start date: 07/17/12 18:05:00, Stop date: 07/17/12 18:05:00 Saline Flush 0.9% 5 ml, Route: IVP, Drug Form: INJ, 07/17/2012 07/19/2012 Discontinued Dosing Weight 66.364, kg, PRN, PRN Line Flush, Start date: 07/17/12 15:00:00, Duration: 30 day, Stop date: 08/16/12 15:59:00 LORAzepam 1 mg, 0.5 mL, Route: IVP, Drug 07/17/2012 07/17/2012 Completed form: INJ, ONCE, Dosing Weight 66.364, kg, Priority: STAT, Start date: 07/17/12 15:00:00, Stop date: 07/17/12 15:00:00 influenza virus 0.5 ml, Route: IM, Drug Form: INJ, 07/18/2012 07/18/2012 Completed vaccine, inactivated Daily, Start date: 07/18/12 13:30:00, Duration: 1 doses or times, Stop date: 07/18/12 13:30:00 Dilaudid 1.5 mg, 1.5 mL, Route: IV, Drug 07/18/2012 07/19/2012 Discontinued form: SOLN, Q4H, Dosing Weight 66.364, kg, PRN Pain, Start date: 07/18/12 0:29:00, Stop date: 08/17/12 0:28:00 diazepam 10 mg, 2 tab, Route: PO, Drug form: 07/18/2012 07/18/2012 Completed TAB, ONCE, Dosing Weight 66.364, kg, PRN Seizure, Start date: 07/18/12 6:10:00 Bentyl 10 mg, 1 cap, Route: PO, Drug form: 07/19/2012 07/19/2012 Discontinued CAP, Q6H, Dosing Weight 66.364, kg, PRN For Pain, Start date: 07/19/12 14:23:00, Duration: 30 day, Stop date: 08/18/12 14:22:00 influenza virus 0.5 ml, Route: IM, Drug Form: INJ, 03/31/2011 03/31/2011 Completed vaccine, inactivated Start date: 03/31/11 9:00:00, Stop date: 03/31/11 9:00:00 zolpidem 20 mg, 2 tab, Route: PO, Drug form: 07/18/2012 07/19/2012 Discontinued TAB, Bedtime, Dosing Weight 66.364, kg, Start date: 07/18/12 21:00:00, Duration: 30 day, Stop date: 08/16/12 21:00:00 Flomax 0.4 mg, 1 cap, Route: PO, Drug 07/18/2012 07/19/2012 Discontinued form: CAP, After Breakfast, Dosing Weight 66.364, kg, Start date: 07/18/12 8:30:00, Duration: 30 day, Stop date: 08/16/12 8:30:00 diazepam 10 mg, Route: PO, Drug form: TAB, 07/18/2012 07/18/2012 Deleted QID, Dosing Weight 66.364, kg, Start date: 07/18/12 9:00:00, Duration: 30 day, Stop date: 08/16/12 21:00:00 citalopram 10 mg, 1 tab, Route: PO, Drug form: 07/18/2012 07/19/2012 Discontinued TAB, Bedtime, Dosing Weight 66.364, kg, Start date: 07/18/12 21:00:00, Duration: 30 day, Stop date: 08/16/12 21:00:00 morphine Sulfate 2 mg, 1 mL, Route: IVP, Drug form: 07/17/2012 07/18/2012 Discontinued INJ, Q4H, Dosing Weight 66.364, kg, PRN Pain Score 4-6, Start date: 07/17/12 20:23:00, Duration: 30 day, Stop date: 08/16/12 20:22:00 Saline Flush 0.9% 5 ml, Route: IVP, Drug Form: INJ, 07/17/2012 07/19/2012 Discontinued Dosing Weight 66.364, kg, PRN, PRN Line Flush, Start date: 07/17/12 20:23:00, Duration: 30 day, Stop date: 08/16/12 21:22:00 citalopram 10 mg 10 mg, 1 tab, PO, Bedtime, 30 tab, 07/17/2012 Ordered oral tablet Substitution Allowed, TAB D5W 1/2NS + KCL 1,000 mL, Rate: 150 ml/hr, Infuse 07/18/2012 07/19/2012 Discontinued 20mEq/L 1000ml over: 6.7 hr, Route: IV, kg, Total (Premix) 1,000 mL Volume: 1,000, Start date: 07/18/12 6:37:00, Duration: 30 day, Stop date: 08/17/12 6:36:00 Flomax 0.4 mg oral 0.4 mg, 1 cap, PO, After Breakfast, 07/17/2012 Ordered capsule 30 cap, Substitution Allowed, CAP influenza virus 0.5 ml, Route: IM, Drug Form: INJ, 07/18/2012 07/18/2012 Deleted vaccine, inactivated Daily, Start date: 07/18/12 9:00:00, Duration: 1 doses or times, Stop date: 07/18/12 9:00:00 Immunizations Vaccine Date Status Hx pneumococcal vaccine 12/29/2010 Auth (Verified) influenza virus vaccine, inactivated 03/31/2011 Not Done influenza virus vaccine, inactivated 07/18/2012 Auth (Verified) Vital Signs Most recent to oldest [Reference Range]: 1 2 3 Height 167.64 cm (07/17/2012 23:05:00) 167.64 cm (07/17/2012 23:01:00) 170.18 cm (07/17/2012 14:14:00) Temperature Oral [96.4-99.1 DegF] 97.4 DegF (07/19/2012 16:00:00) 97.8 DegF (07/19/2012 12:00:00) 97.5 DegF (07/19/2012 08:00:00) Systolic Blood Pressure [90-140 mmHg] 112 mmHg (07/19/2012 16:00:00) 118 mmHg (07/19/2012 12:00:00) 115 mmHg (07/19/2012 08:00:00) Diastolic Blood Pressure [60-90 mmHg] 70 mmHg (07/19/2012 16:00:00) 76 mmHg (07/19/2012 12:00:00) 71 mmHg (07/19/2012 08:00:00) Respiratory Rate [14-20 BRMIN] 18 BRMIN (07/19/2012 16:00:00) 18 BRMIN (07/19/2012 12:00:00) 18 BRMIN (07/19/2012 08:00:00) Peripheral Pulse Rate [60-100 bpm] 92 bpm (07/19/2012 16:00:00) 104 bpm *HI* (07/19/2012 12:00:00) 86 bpm (07/19/2012 08:00:00) Weight 66.364 kg (07/17/2012 23:05:00) 66.364 kg (07/17/2012 23:01:00) 66.364 kg (07/17/2012 14:14:00) Results CHEMISTRY Most recent to oldest [Reference Range]: 1 Sodium Lvl [135-145 mEq/L] 142 mEq/L (07/17/2012 16:35:00) Potassium Lvl [3.5-5.1 mEq/L] 3.9 mEq/L (07/17/2012 16:35:00) Chloride Lvl [95-109 mEq/L] 105 mEq/L (07/17/2012 16:35:00) CO2 [24-32 mEq/L] 25 mEq/L (07/17/2012 16:35:00) AGAP [10.0-20.0 mEq/L] 15.9 mEq/L (07/17/2012 16:35:00) Creatinine Lvl [0.5-1.4 mg/dL] 0.9 mg/dL (07/17/2012 16:35:00) eGFR 83 mL/min/1.73m2 1 *NA* (07/17/2012:35:00) BUN [7-22 mg/dL] 8 mg/dL (07/17/2012:35:00) B/C Ratio [6-25] 9 (07/17/2012:35:00) Glucose Lvl [70-99 mg/dL] 85 mg/dL 2 (07/17/2012:35:00) Total Protein [6.4-8.4 g/dL] 7.4 g/dL (07/17/201235:00) Albumin Lvl [3.5-5.0 g/dL] 4.3 g/dL (07/17/2012:35:00) Globulin [2.0-4.0 g/dL] 3.1 g/dL (07/17/2012:35:00) A/G Ratio [0.7-1.6] 1.4 (07/17/2012:35:00) Calcium Lvl [8.5-10.5 mg/dL] 9.2 mg/dL (07/17/2012:35:00) ALT [0-65 unit/L] 133 unit/L *HI* (07/17/2012 16:35:00) AST [0-37 unit/L] 45 unit/L *HI* (07/17/2012:35:00) Alk Phos [39-136 unit/L] 111 unit/L (07/17/2012 16:35:00) Bili Total [0.2-1.3 mg/dL] 0.2 mg/dL (07/17/2012 16:35:00) U Amph Scr [Negative] Negative *NA* (07/17/2012 15:00:00) U Pilar Scr [Negative] Negative *NA* (07/17/2012 15:00:00) U Benzodia Scr [Negative] Positive *ABN* (07/17/2012 15:00:00) U Cocaine Scr [Negative] Negative *NA* (07/17/2012 15:00:00) U Opiate Scr [Negative] Negative *NA* (07/17/2012 15:00:00) U Phencyc Scr [Negative] Negative *NA* (07/17/2012 15:00:00) U Cannab Scr [Negative] Negative *NA* (07/17/2012 15:00:00) UDS Note See Note 3 (07/17/2012 15:00:00) 1Result Comment: The eGFR is calculated using [...] values reflect the clinical guidelines of the [place] [employer]. 3Interpretive Data: Drugs reported as positive have not [...] oldest [Reference Range]: 1 WBC [3.7-10.4 K/CMM] 4.0 K/CMM (07/17/2012 15:00:00) RBC [4.20-5.40 M/CMM] 3.73 M/CMM *LOW* (07/17/2012 15:00:00) Hgb [12.0-16.0 g/dL] 11.7 g/dL *LOW* (07/17/2012:00:00) Hct [36.0-48.0 %] 35.5 % *LOW* (07/17/2012 15:00:00) MCV [81.0-99.0 fL] 95.0 fL (07/17/2012:00:00) MCH [27.0-31.0 pg] 31.3 pg *HI* (07/17/2012:00:00) MCHC [32.0-36.0 g/dL] 32.9 g/dL (07/17/2012:00:00) RDW [11.5-14.5 %] 12.8 % (07/17/2012 15:00:00) Platelet [133-450 K/CMM] 328 K/CMM (07/17/2012:00:00) MPV [7.4-10.4 fL] 9.1 fL (07/17/2012:00:00) Segs [45.0-75.0 %] 54.9 % (07/17/2012 15:00:00) Lymphocytes [20.0-40.0 %] 34.7 % (07/17/2012:00:00) Monocytes [2.0-12.0 %] 7.0 % (07/17/2012:00:00) Eosinophils [0.0-4.0 %] 2.8 % (07/17/2012:00:00) Basophils [0.0-1.0 %] 0.6 % (07/17/2012:00:00) Segs-Bands # [1.5-8.1 K/CMM] 2.2 K/CMM (07/17/2012 15:00:00) Lymphocytes # [1.0-5.5 K/CMM] 1.4 K/CMM (07/17/2012 15:00:00) Monocytes # [0.0-0.8 K/CMM] 0.3 K/CMM (07/17/2012 15:00:00) Eosinophils # [0.0-0.5 K/CMM] 0.1 K/CMM (07/17/2012 15:00:00) Basophils # [0.0-0.2 K/CMM] 0.0 K/CMM (07/17/2012 15:00:00) Procedures Procedures Date Related Diagnosis Back fusion
--- OUTSIDE RECORDS SUMMARY | 2018-09-18 17:12 | XMS REPORT | CCD ---
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 Name Role Phone Rajinder Biswas CP Allergies, Adverse Reactions, Alerts Substance Reaction [...] Medication Instructions Start Date End Date Status NS (Bolus) IV 1,000 1,000 mL, Rate: 1,000 ml/hr, Infuse 10/16/2011 10/16/2011 Completed mL over: 1 hr, Route: IV, Dosing Weight 63 kg, Total Volume: 1,000, Priority: STAT, Start date: 10/16/11 1:26:00, Duration: 1 doses or times, Stop date: 10/16/11 2:25:00, Bolus Dose Bolus Dose influenza virus 0.5 ml, Route: IM, Drug Form: INJ, 03/31/2011 03/31/2011 Completed vaccine, inactivated Start date: 03/31/11 9:00:00, Stop date: 03/31/11 9:00:00 Immunizations Vaccine Date Status influenza virus vaccine, inactivated 03/31/2011 Not Done Vital Signs Most recent to oldest [Reference Range]: 1 Height 167.64 cm (10/16/2011 01:11:00) Weight 63.636 kg (10/16/2011 01:11:00) Results URINALYSIS Most recent to oldest [Reference Range]: 1 UA Turbidity [Clear] Slight *ABN* (10/16/2011 01:36:00) UA Color Ltyellow *NA* (10/16/2011 01:36:00) UA pH [5.0-8.0] 6.0 (10/16/2011 01:36:00) UA Spec Grav [<=1.030] 1.019 (10/16/2011 01:36:00) UA Glucose [Negative mg/dL] Negative mg/dL *NA* (10/16/2011 01:36:00) UA Blood [Negative] Negative (10/16/2011 01:36:00) UA Ketones [Negative mg/dL] Negative mg/dL *NA* (10/16/2011 01:36:00) UA Protein [Negative mg/dL] Negative mg/dL (10/16/2011 01:36:00) UA Urobilinogen [0.1-1.0 mg/dL] <=1.0 mg/dL *NA* (10/16/2011 01:36:00) UA Bili [Negative] Negative *NA* (10/16/2011 01:36:00) UA Leuk Est [Negative] Moderate *ABN* (10/16/2011 01:36:00) UA Nitrite [Negative] Negative (10/16/2011 01:36:00) UA WBC [0-5 /HPF] 6 /HPF *HI* (10/16/2011 01:36:00) UA RBC [0-2 /HPF] 3 /HPF *HI* (10/16/2011 01:36:00) UA Sq Epi [Few /LPF] Occasional /LPF *NA* (10/16/2011 01:36:00) UA Mucus [None Seen /LPF] Few /LPF *NA* (10/16/2011 01:36:00) UA Trans Epi [<=0 /LPF] 1 /LPF *HI* (10/16/2011 01:36:00) CHEMISTRY Most recent to oldest [Reference Range]: 1 Sodium Lvl [135-145 mEq/L] 143 mEq/L (10/16/2011 01:33:00) Potassium Lvl [3.5-5.1 mEq/L] 3.7 mEq/L (10/16/2011 01:33:00) Chloride Lvl [95-109 mEq/L] 109 mEq/L (10/16/2011 01:33:00) CO2 [24-32 mEq/L] 23 mEq/L *LOW* (10/16/2011:33:00) AGAP [10.0-20.0 mEq/L] 14.7 mEq/L (10/16/2011:33:00) Creatinine Lvl [0.5-1.4 mg/dL] 0.7 mg/dL (10/16/2011:33:00) BUN [7-22 mg/dL] 14 mg/dL (10/16/2011:33:00) Glucose Lvl [70-99 mg/dL] 91 mg/dL 1 (10/16/2011::00) Calcium Lvl [8.5-10.5 mg/dL] 8.9 mg/dL (10/16/2011::00) 1Interpretive Data: Adult reference range values reflect the clinical guidelinesof the [place] [employer]. HEMATOLOGY Most recent to oldest [Reference Range]: 1 WBC [3.7-10.4 K/CMM] 4.6 K/CMM (10/16/2011:33:00) RBC [4.20-5.40 M/CMM] 4.37 M/CMM (10/16/2011:33:00) Hgb [12.0-16.0 g/dL] 13.4 g/dL (10/16/2011:33:00) Hct [36.0-48.0 %] 40.3 % (10/16/2011:33:) MCV [81.0-99.0 fL] 92.2 fL (10/16/2011:33:00) MCH [27.0-31.0 pg] 30.8 pg (10/16/2011:33:00) MCHC [32.0-36.0 g/dL] 33.4 g/dL (10/16/2011:33:00) RDW [11.5-14.5 %] 16.2 % *HI* (10/16/2011:33:00) Platelet [133-450 K/CMM] 243 K/CMM (10/16/2011:33:00) MPV [7.4-10.4 fL] 10.2 fL (10/16/2011 01:33:00) Segs [45.0-75.0 %] 47.8 % (10/16/2011 01:33:00) Lymphocytes [20.0-40.0 %] 40.1 % *HI* (10/16/2011:33:00) Monocytes [2.0-12.0 %] 9.0 % (10/16/2011:33:00) Eosinophils [0.0-4.0 %] 2.8 % (10/16/2011:33:00) Basophils [0.0-1.0 %] 0.3 % (10/16/2011 01:33:00) Segs-Bands # [1.5-8.1 K/CMM] 2.2 K/CMM (10/16/2011 01:33:00) Lymphocytes # [1.0-5.5 K/CMM] 1.9 K/CMM (10/16/2011:33:00) Monocytes # [0.0-0.8 K/CMM] 0.4 K/CMM (10/16/2011 01:33:00) Eosinophils # [0.0-0.5 K/CMM] 0.1 K/CMM (10/16/2011 01:33:00) Basophils # [0.0-0.2 K/CMM] 0.0 K/CMM (10/16/2011 01:33:00)
--- OUTSIDE RECORDS SUMMARY | 2018-09-18 17:13 | XMS REPORT | CCD ---
Author Author Auto Generated Organization [facility] Address Unknown Phone Unavailable Care Team Providers Care Ceo And President Name Role Phone Denis Pickard CP Unavailable Allergies, Adverse Reactions, Alerts Substance Reaction Status aspirin Active Augmentin Active Food MSG Active Imitrex Active iodine Active Paper Tape Active shellfish Active Problem List Condition Effective Dates Status Abdominal pain Active Anxiety Active Anxiety Active Cancer1 Resolved Cancer of cervix Active Depression Active Female genital organ symptoms2 Active Gastric bypass operation Active Kidney infection Resolved Laparoscopic procedure Active Lumbar puncture headache Active Lysis of adhesions Active Malabsorption Resolved Migraine Active Sinusitis Active Ulcer Active 1cervical 2CANCELLED Medications Medication Instructions Start Date End Date Status influenza virus 0.5 ml, Route: IM, Drug Form: INJ, 07/18/2012 07/18/2012 Completed vaccine, inactivated Start date: 07/18/12 13:30:00, Stop date: 07/18/12 13:30:00 influenza virus 0.5 ml, Route: IM, Drug Form: INJ, 03/31/2011 03/31/2011 Completed vaccine, inactivated Start date: 03/31/11 9:00:00, Stop date: 03/31/11 9:00:00 Immunizations Vaccine Date Status Hx pneumococcal vaccine 12/29/2010 Auth (Verified) influenza virus vaccine, inactivated 03/31/2011 Not Done influenza virus vaccine, inactivated 07/18/2012 Auth (Verified) Vital Signs Most recent to oldest [Reference Range]: 1 Height 170.18 cm (10/19/2012 05:16:00) Weight 66.818 kg (10/19/2012 05:16:00)
--- OUTSIDE RECORDS SUMMARY | 2018-09-18 17:13 | XMS REPORT | CCD ---
Author Author Auto Generated Organization 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 Name Role Phone Corey Bolaños RP Allergies, Adverse Reactions, Alerts Substance Reaction Status [...] Medication Instructions Start Date End Date Status diazepam 10 mg, 2 tab, Route: PO, Drug form: 07/09/2012 07/11/2012 Discontinued TAB, Q6H, Dosing Weight 66.818, kg, Start date: 07/09/12 14:57:00, Stop date: 08/08/12 10:00:00 amitriptyline 50 mg, 1 tab, Route: PO, Drug form: 07/09/2012 07/11/2012 Discontinued TAB, Bedtime, Dosing Weight 66.818, kg, Start date: 07/09/12 21:00:00, Duration: 30 day, Stop date: 08/07/12 21:00:00 Phenergan + Sodium 12.5 mg, 0.5 mL, Route: IVPB, Q4H, 07/09/2012 07/11/2012 Discontinued Chloride 0.9% IV 50 Dosing Weight 59.091, kg, PRN mL Nausea & Vomiting, Start date: 07/09/12 11:12:00, Stop date: 08/08/12 11:11:00 Dilaudid 1 mg, 1 mL, Route: IV, Drug form: 07/09/2012 07/11/2012 Discontinued SOLN, Q3H, Dosing Weight 59.091, kg, PRN Pain, Start date: 07/09/12 11:12:00, Duration: 30 day, Stop date: 08/08/12 11:11:00 Protonix 40 mg, 1 tab, Route: PO, Drug form: 07/10/2012 07/11/2012 Discontinued ECTAB, Before Dinner, Dosing Weight 59.091, kg, Start date: 07/10/12 16:30:00, Duration: 30 day, Stop date: 08/08/12 16:30:00 enoxaparin 40 mg, 0.4 mL, Route: SUB-Q, Drug 07/09/2012 07/11/2012 Discontinued form: INJ, [id number], Dosing Weight 59.091, kg, Start date: 07/09/12 12:00:00, Duration: 30 day, Stop date: 08/07/12 13:00:00 acetaminophen 650 mg, 2 tab, Route: PO, Drug 07/09/2012 07/11/2012 Discontinued form: TAB, Q4H, Dosing Weight 59.091, kg, PRN Pain/Fever, Start date: 07/09/12 11:08:00, Duration: 30 day, Stop date: 08/08/12 11:07:00 NS + KCL 20mEq/L 1,000 mL, Rate: 100 ml/hr, Infuse 07/09/2012 07/10/2012 Discontinued 1000ml (Premix) over: 10 hr, Route: IV, kg, Total 1,000 mL Volume: 1,000, Start date: 07/09/12 11:08:00, Duration: 30 day, Stop date: 08/08/12 11:07:00 Saline Flush 0.9% 5 ml, Route: IVP, Drug Form: INJ, 07/09/2012 07/11/2012 Discontinued Dosing Weight 59.091, kg, PRN, PRN Line Flush, Start date: 07/09/12 11:08:00, Duration: 30 day, Stop date: 08/08/12 12:07:00 temazepam 15 mg, 1 cap, Route: PO, Drug form: 07/09/2012 07/11/2012 Discontinued CAP, Bedtime, Dosing Weight 59.091, kg, PRN Insomnia, Start date: 07/09/12 11:08:00, Duration: 30 day, Stop date: 08/08/12 11:07:00 docusate 100 mg, 1 cap, Route: PO, Drug 07/09/2012 07/11/2012 Discontinued form: CAP, BID, Dosing Weight 59.091, kg, PRN Constipation, Start date: 07/09/12 11:08:00, Duration: 30 day, Stop date: 08/08/12 11:07:00 Protonix 40 mg, Route: IVP, 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, 07/09/2012 07/10/2012 Discontinued Before Dinner, Dosing Weight 59.091, kg, Start date: 07/09/12 16:30:00, Duration: 30 day, Stop date: 08/07/12 16:30:00 levofloxacin 500 500 mg, 100 mL, IVPB, [id number], 7 07/11/2012 Ordered mg/100 mL mL, Substitution Allowed, INJ intravenous solution Schofield 5/325 oral 1 tab, PO, Q4H, PRN, 12 tab, for 07/11/2012 Ordered tablet pain, Substitution Allowed, Maintenance, TAB influenza virus 0.5 ml, Route: IM, Drug Form: INJ, 03/31/2011 03/31/2011 Completed vaccine, inactivated Start date: 03/31/11 9:00:00, Stop date: 03/31/11 9:00:00 Ambien 10 mg, 1 tab, Route: PO, Drug form: 07/09/2012 07/11/2012 Discontinued TAB, Bedtime, Dosing Weight 66.818, kg, PRN Insomnia, Start date: 07/09/12 17:41:00, Duration: 30 day, Stop date: 08/08/12 17:40:00 Schofield 10/325 oral 1 tab, Route: PO, Drug Form: TAB, 07/11/2012 07/11/2012 Discontinued tablet Dosing Weight 66.818, kg, Q6H, PRN Pain, Start date: 07/11/12 7:18:00, Duration: 30 day, Stop date: 08/10/12 7:17:00 Levaquin 500 mg, 100 mL, Route: IVPB, Drug 07/09/2012 07/11/2012 Discontinued form: INJ, [id number], Dosing Weight 59.091, kg, Start date: 07/09/12 12:00:00, Duration: 30 day, Stop date: 08/07/12 13:00:00 Immunizations Vaccine Date Status Hx pneumococcal vaccine 12/29/2010 Auth (Verified) influenza virus vaccine, inactivated 03/31/2011 Not Done Vital Signs Most recent to [Reference Range]: 1 2 3 Height 170.18 cm (07/09/2012 11:58:00) 170.18 cm (07/09/2012 11:58:00) Current Weight 66.818 kg (07/09/2012 11:58:00) Temperature Oral [96.4-99.1 DegF] 97.7 DegF (07/11/2012 15:37:00) 97.9 DegF (07/11/2012 07:32:00) 97.7 DegF (07/11/2012 04:25:00) Systolic Blood Pressure [90-140 mmHg] 114 mmHg (07/11/2012 15:37:00) 124 mmHg (07/11/2012 07:32:00) 112 mmHg (07/11/2012 04:25:00) Diastolic Blood Pressure [60-90 mmHg] 73 mmHg (07/11/2012 15:37:00) 82 mmHg (07/11/2012 07:32:00) 73 mmHg (07/11/2012 04:25:00) Respiratory Rate [14-20 BRMIN] 17 BRMIN (07/11/2012 15:37:00) 18 BRMIN (07/11/2012 07:32:00) 16 BRMIN (07/11/2012 04:25:00) Peripheral Pulse Rate [60-100 bpm] 101 bpm *HI* (07/11/2012 15:37:00) 79 bpm (07/11/2012 07:32:00) 92 bpm (07/11/2012 04:25:00) Weight 66.818 kg (07/09/2012 11:58:00) Results BEDSIDE GLUCOSE TESTING Most recent to [Reference Range]: 1 Gluc POC Lifscn [70-99 mg/dL] 68 mg/dL 1 *LOW* (07/11/2012 12:07:00) Comment1 Notify RN/MD *NA* (07/11/2012 12:07:00) 1Interpretive Data: Upper Reportable Limit: 200 mg/dL. URINALYSIS Most recent to [Reference Range]: 1 UA Turbidity [Clear] Clear (07/09/2012 13:30:52) UA Color Isela *NA* (07/09/2012 13:30:52) UA pH [5.0-8.0] 6.0 (07/09/2012 13:30:52) UA Spec Grav [<=1.030] 1.005 (07/09/2012 13:30:52) UA Glucose [Negative mg/dL] Negative mg/dL *NA* (07/09/2012 13:30:52) UA Blood [Negative] Moderate *ABN* (07/09/2012 13:30:52) UA Ketones [Negative mg/dL] Negative mg/dL *NA* (07/09/2012 13:30:52) UA Protein [Negative mg/dL] Negative mg/dL (07/09/2012 13:30:52) UA Urobilinogen [0.1-1.0 mg/dL] <=1.0 mg/dL *NA* (07/09/2012 13:30:52) UA Bili [Negative] Negative *NA* (07/09/2012 13:30:52) UA Leuk Est [Negative] Trace *ABN* (07/09/2012 13:30:52) UA Nitrite [Negative] Negative (07/09/2012 13:30:52) BLOOD BANK RESULTS Most recent to oldest [Reference Range]: 1 ABO/Rh O POS *Unknown* (07/09/2012 13:04:00) Antibody Scrn Negative (07/09/2012 13:04:00) CHEMISTRY Most recent to oldest [Reference Range]: 1 Sodium Lvl [135-145 mEq/L] 143 mEq/L (07/09/2012 12:58:00) Potassium Lvl [3.5-5.1 mEq/L] 5.5 mEq/L *HI* (07/09/2012 12:58:00) Chloride Lvl [95-109 mEq/L] 105 mEq/L (07/09/2012 12:58:00) CO2 [24-32 mEq/L] 31 mEq/L (07/09/2012 12:58:00) AGAP [10.0-20.0 mEq/L] 12.5 mEq/L (07/09/2012 12:58:00) Creatinine Lvl [0.5-1.4 mg/dL] 1.0 mg/dL (07/09/2012:58:00) eGFR 73 mL/min/1.73m2 2 *NA* (07/09/2012:58:00) BUN [7-22 mg/dL] 12 mg/dL (07/09/2012:58:00) B/C Ratio [6-25] 12 (07/09/2012:58:00) Glucose Lvl [70-99 mg/dL] 84 mg/dL 3 (07/09/2012:58:00) Total Protein [6.4-8.4 g/dL] 6.8 g/dL (07/09/2012:58:00) Albumin Lvl [3.5-5.0 g/dL] 3.8 g/dL (07/09/2012:58:00) Globulin [2.0-4.0 g/dL] 3.0 g/dL (07/09/2012:58:00) A/G Ratio [0.7-1.6] 1.3 (07/09/2012:58:00) Calcium Lvl [8.5-10.5 mg/dL] 9.5 mg/dL (07/09/2012:58:00) ALT [0-65 unit/L] 44 unit/L (07/09/2012:58:00) AST [0-37 unit/L] 13 unit/L (07/09/2012:58:00) Alk Phos [39-136 unit/L] 92 unit/L (07/09/2012:58:00) Bili Total [0.2-1.3 mg/dL] 0.2 mg/dL (07/09/2012:58:00) 2Result Comment: The eGFR is calculated using the [...] be mul tiplied by the estimated BMI. 3Interpretive Data: Adult reference range values reflect the clinical guidelines of the [place] [employer]. HEMATOLOGY Most recent to oldest [Reference Range]: 1 WBC [3.7-10.4 K/CMM] 3.3 K/CMM *LOW* (07/09/2012 12:58:00) RBC [4.20-5.40 M/CMM] 3.35 M/CMM *LOW* (07/09/2012:58:00) Hgb [12.0-16.0 g/dL] 10.6 g/dL *LOW* (07/09/2012:58:00) Hct [36.0-48.0 %] 32.7 % *LOW* (07/09/2012:58:00) MCV [81.0-99.0 fL] 97.4 fL (07/09/2012 12:58:00) MCH [27.0-31.0 pg] 31.7 pg *HI* (07/09/2012:58:00) MCHC [32.0-36.0 g/dL] 32.5 g/dL (07/09/2012 12:58:00) RDW [11.5-14.5 %] 12.9 % (07/09/2012 12:58:00) Platelet [133-450 K/CMM] 264 K/CMM (07/09/2012:58:00) MPV [7.4-10.4 fL] 8.9 fL (07/09/2012:58:00) Segs [45.0-75.0 %] 34.3 % *LOW* (07/09/2012:58:00) Lymphocytes [20.0-40.0 %] 50.5 % *HI* (07/09/2012:58:00) Monocytes [2.0-12.0 %] 10.2 % (07/09/2012:58:00) Eosinophils [0.0-4.0 %] 4.7 % *HI* (07/09/2012 12:58:00) Basophils [0.0-1.0 %] 0.3 % (07/09/2012 12:58:00) Segs-Bands # [1.5-8.1 K/CMM] 1.1 K/CMM *LOW* (07/09/2012 12:58:00) Lymphocytes # [1.0-5.5 K/CMM] 1.7 K/CMM (07/09/2012 12:58:00) Monocytes # [0.0-0.8 K/CMM] 0.3 K/CMM (07/09/2012 12:58:00) Eosinophils # [0.0-0.5 K/CMM] 0.2 K/CMM (07/09/2012 12:58:00) Basophils # [0.0-0.2 K/CMM] 0.0 K/CMM (07/09/2012 12:58:00) Procedures Procedures Date Related Diagnosis Abdominal hysterectomy Hernia repair
--- OUTSIDE RECORDS SUMMARY | 2018-09-18 17:13 | XMS REPORT | CCD ---
Author Author Auto Generated Organization [facility] Address Unknown Phone Unavailable Care Team Providers Care Supervisor Vendor Quality Name Role Phone Temi Forrest CP Allergies, [...] Medication Instructions Start Date End Date Status pantoprazole 40 mg, Route: IVP, ONCE, Dosing 07/15/2012 07/15/2012 Completed Weight 66.364, kg, For IV push reconstitute with 10 ml 0.9% sodium chloride and push over at least 3 minutes, Priority: STAT, Start date: 07/15/12 23:31:00, Stop date: 07/15/12 23:31:00 Sodium Chloride 0.9% 500 mL, Rate: 1,000 ml/hr, Infuse 07/15/2012 07/15/2012 Completed (Bolus) IV 500 mL over: 30 minutes, Route: IV, kg, Total Volume: 500, Priority: STAT, Start date: 07/15/12 23:31:00, Duration: 1 doses or times, Stop date: 07/16/12 0:00:00 Saline Flush 0.9% 5 mL, Route: IVP, Drug Form: INJ, 07/15/2012 07/16/2012 Discontinued Dosing Weight 66.364, kg, PRN, PRN Line Flush, Start date: 07/15/12 23:31:00, Duration: 24 hr, Stop date: 07/16/12 23:30:00 ondansetron 4 mg, Route: IVP, ONCE, Dosing 07/15/2012 07/15/2012 Completed Weight 66.364, kg, Priority: STAT, Start date: 07/15/12 23:31:00, Stop date: 07/15/12 23:31:00 hydromorphone 1 mg, Route: IVP, ONCE, Dosing 07/15/2012 07/15/2012 Completed Weight 66.364, kg, Priority: STAT, Start date: 07/15/12 23:31:00, Stop date: 07/15/12 23:31:00 influenza virus 0.5 ml, Route: IM, Drug Form: INJ, 03/31/2011 03/31/2011 Completed vaccine, inactivated Start date: 03/31/11 9:00:00, Stop date: 03/31/11 9:00:00 Ativan 1 mg, Route: IVP, ONCE, Dosing 07/16/2012 07/16/2012 Completed Weight 66.364, kg, Priority: STAT, Start date: 07/16/12 2:47:00, Stop date: 07/16/12 2:47:00 Immunizations Vaccine Date Status Hx pneumococcal vaccine 12/29/2010 Auth (Verified) influenza virus vaccine, inactivated 03/31/2011 Not Done Vital Signs Most recent to oldest [Reference Range]: 1 Height 170.18 cm (07/15/2012 20:49:00) Weight 66.364 kg (07/15/2012 20:49:00) Results URINALYSIS Most recent to oldest [Reference Range]: 1 UA Turbidity [Clear] Clear (07/16/2012 00:05:00) UA Color Isela *NA* (07/16/2012 00:05:00) UA pH [5.0-8.0] 7.0 (07/16/2012 00:05:00) UA Spec Grav [<=1.030] 1.003 (07/16/2012 00:05:00) UA Glucose [Negative mg/dL] Negative mg/dL *NA* (07/16/2012 00:05:00) UA Blood [Negative] Negative (07/16/2012 00:05:00) UA Ketones [Negative mg/dL] Negative mg/dL *NA* (07/16/2012 00:05:00) UA Protein [Negative mg/dL] Negative mg/dL (07/16/2012 00:05:00) UA Urobilinogen [0.1-1.0 mg/dL] <=1.0 mg/dL *NA* (07/16/2012 00:05:00) UA Bili [Negative] Negative *NA* (07/16/2012 00:05:00) UA Leuk Est [Negative] Negative (07/16/2012 00:05:00) UA Nitrite [Negative] Positive *ABN* (07/16/2012 00:05:00) UA WBC [0-5 /HPF] <1 /HPF (07/16/2012 00:05:00) UA RBC [0-2 /HPF] <1 /HPF (07/16/2012 00:05:00) UA Sq Epi None Seen *NA* (07/16/2012 00:05:00) CHEMISTRY Most recent to oldest [Reference Range]: 1 Sodium Lvl [135-145 mEq/L] 142 mEq/L (07/15/2012 23:53:00) Potassium Lvl [3.5-5.1 mEq/L] 4.0 mEq/L (07/15/2012 23:53:00) Chloride Lvl [95-109 mEq/L] 104 mEq/L (07/15/2012 23:53:00) CO2 [24-32 mEq/L] 30 mEq/L (07/15/2012 23:53:00) AGAP [10.0-20.0 mEq/L] 12.0 mEq/L (07/15/2012 23:53:00) Creatinine Lvl [0.5-1.4 mg/dL] 0.8 mg/dL (07/15/2012 23:53:00) eGFR 95 mL/min/1.73m2 1 *NA* (07/15/2012 23:53:00) BUN [7-22 mg/dL] 9 mg/dL (07/15/2012 23:53:00) B/C Ratio [6-25] 11 (07/15/2012 23:53:00) Glucose Lvl [70-99 mg/dL] 92 mg/dL 2 (07/15/2012 23:53:00) Total Protein [6.4-8.4 g/dL] 7.2 g/dL (07/15/2012 23:53:00) Albumin Lvl [3.5-5.0 g/dL] 4.0 g/dL (07/15/2012 23:53:00) Globulin [2.0-4.0 g/dL] 3.2 g/dL (07/15/2012 23:53:00) A/G Ratio [0.7-1.6] 1.2 (07/15/2012 23:53:00) Calcium Lvl [8.5-10.5 mg/dL] 8.9 mg/dL (07/15/2012 23:53:00) ALT [0-65 unit/L] 157 unit/L *HI* (07/15/2012 23:53:00) AST [0-37 unit/L] 65 unit/L *HI* (07/15/2012 23:53:00) Alk Phos [39-136 unit/L] 98 unit/L (07/15/2012 23:53:00) Bili Total [0.2-1.3 mg/dL] 0.2 mg/dL (07/15/2012 23:53:00) Lipase Lvl [73-393 unit/L] 119 unit/L (07/15/2012 23:53:00) U Preg [Negative] Negative (07/16/2012 01:22:00) 1Result Comment: The eGFR is calculated using [...] values reflect the clinical guidelines of the [place] [employer]. HEMATOLOGY Most recent to oldest [Reference Range]: 1 WBC [3.7-10.4 K/CMM] 3.6 K/CMM *LOW* (07/15/2012 23:53:00) RBC [4.20-5.40 M/CMM] 3.48 M/CMM *LOW* (07/15/2012 23:53:00) Hgb [12.0-16.0 g/dL] 10.9 g/dL *LOW* (07/15/2012 23:53:00) Hct [36.0-48.0 %] 33.4 % *LOW* (07/15/2012 23:53:00) MCV [81.0-99.0 fL] 96.2 fL (07/15/2012 23:53:00) MCH [27.0-31.0 pg] 31.4 pg *HI* (07/15/2012 23:53:00) MCHC [32.0-36.0 g/dL] 32.6 g/dL (07/15/2012 23:53:00) RDW [11.5-14.5 %] 12.9 % (07/15/2012 23:53:00) Platelet [133-450 K/CMM] 305 K/CMM (07/15/2012 23:53:00) MPV [7.4-10.4 fL] 8.4 fL (07/15/2012 23:53:00) Segs [45.0-75.0 %] 39.4 % *LOW* (07/15/2012 23:53:00) Lymphocytes [20.0-40.0 %] 46.1 % *HI* (07/15/2012 23:53:00) Monocytes [2.0-12.0 %] 9.8 % (07/15/2012 23:53:00) Eosinophils [0.0-4.0 %] 4.1 % *HI* (07/15/2012 23:53:00) Basophils [0.0-1.0 %] 0.6 % (07/15/2012 23:53:00) Segs-Bands # [1.5-8.1 K/CMM] 1.4 K/CMM *LOW* (07/15/2012 23:53:00) Lymphocytes # [1.0-5.5 K/CMM] 1.6 K/CMM (07/15/2012 23:53:00) Monocytes # [0.0-0.8 K/CMM] 0.4 K/CMM (07/15/2012 23:53:00) Eosinophils # [0.0-0.5 K/CMM] 0.1 K/CMM (07/15/2012 23:53:00) Basophils # [0.0-0.2 K/CMM] 0.0 K/CMM (07/15/2012 23:53:00) Microbiology Reports PROCEDURE:Culture: Urine STATUS: Auth (Verified) BODY SITE: COLLECTED DATE/TIME: 07/16/2012 00:25:00 SOURCE: Urine, Clean Catch FREE TEXT SOURCE: FINAL REPORTS Final Report No Growth
--- OUTSIDE RECORDS SUMMARY | 2018-09-18 17:13 | XMS REPORT | CCD ---
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 Phone Corey Bolaños CP Allergies, [...] Medication Instructions Start Date End Date Status Flomax 0.4 mg, 1 cap, Route: PO, Drug 08/10/2012 08/11/2012 Discontinued form: CAP, After Breakfast, Dosing Weight 66.818, kg, Start date: 08/10/12 8:30:00, Duration: 30 day, Stop date: 09/08/12 8:30:00 Pristiq 50mg po Pristiq 50mg po daily*Pts own med*, 08/07/2012 08/11/2012 Discontinued daily*Pts own med* Pristiq 50mg po daily*Pts own med*, Drug form: MISC, Route: PO, Daily, 08/07/12 9:00:00, Duration: 30 day, Stop date: 09/05/12 9:00:00 Levaquin 500 mg, 100 mL, Route: IVPB, Drug 08/06/2012 08/11/2012 Discontinued form: INJ, [id number], Dosing Weight 66.364, kg, Start date: 08/06/12 15:00:00, Duration: 30 day, Stop date: 09/04/12 15:00:00 Fleet Enema 133 ml, Route: CA, Drug Form: SUMAN, 08/08/2012 08/08/2012 Deleted Dosing Weight 66.818, kg, ONCE, Start date: 08/08/12 15:57:00, Stop date: 08/08/12 15:57:00 enoxaparin 40 mg, 0.4 mL, Route: SUB-Q, Drug 08/06/2012 08/08/2012 Discontinued form: INJ, [id number], Dosing Weight 66.364, kg, Start date: 08/06/12 15:00:00, Duration: 30 day, Stop date: 09/04/12 15:00:00 Benadryl 25 mg, 0.5 mL, Route: IV, Drug 08/07/2012 08/11/2012 Discontinued form: INJ, Q4H, Dosing Weight 66.818, kg, PRN as needed for itching, Start date: 08/07/12 0:19:00, Duration: 30 day, Stop date: 09/06/12 0:18:00 ondansetron 2 mg/mL 4 mg, 2 mL, IVP, Q6H, PRN, 10 mL, 08/11/2012 Ordered injectable solution Nausea & Vomiting, Substitution Allowed, INJ acetaminophen-hydroc 2 tab, PO, Q4H, PRN, 15 tab, Pain 08/11/2012 Ordered odone 325 mg-5 mg Score 4-6, Substitution Allowed, oral tablet Maintenance, TAB influenza virus 0.5 ml, Route: IM, Drug Form: INJ, 07/18/2012 07/18/2012 Completed vaccine, inactivated Start date: 07/18/12 13:30:00, Stop date: 07/18/12 13:30:00 Lovenox 40 mg, 0.4 mL, Route: SUB-Q, Drug 08/10/2012 08/11/2012 Discontinued form: INJ, [id number], Dosing Weight 66.818, kg, Start date: 08/10/12 6:00:00, Duration: 30 day, Stop date: 09/08/12 6:00:00 Lactated Ringers 1,000 mL, Rate: 125 ml/hr, Infuse 08/09/2012 08/09/2012 Discontinued Injection IV 1,000 over: 8 hr, Route: IV, kg, Total mL Volume: 1,000, Start date: 08/09/12 17:24:00, Duration: 30 day, Stop date: 09/08/12 17:23:00 acetaminophen-hydroc 2 tab, Route: PO, Drug Form: TAB, 08/09/2012 08/11/2012 Discontinued odone 325 mg-5 mg Dosing Weight 66.818, kg, Q4H, PRN oral tablet Pain Score 4-6, Start date: 08/09/12 17:24:00, Duration: 30 day, Stop date: 09/08/12 17:23:00 docusate sodium 100 100 mg, 1 cap, Route: PO, Drug 08/10/2012 08/11/2012 Discontinued mg oral capsule form: CAP, BID, Dosing Weight 66.818, kg, Start date: 08/10/12 9:00:00, Duration: 30 day, Stop date: 09/08/12 17:00:00 ondansetron 4 mg, 2 mL, Route: IVP, Drug form: 08/09/2012 08/11/2012 Discontinued INJ, Q6H, Dosing Weight 66.818, kg, PRN Nausea & Vomiting, Start date: 08/09/12 17:24:00, Duration: 30 day, Stop date: 09/08/12 17:23:00 diphenhydrAMINE 25 mg, 1 tab, Route: PO, Drug form: 08/09/2012 08/11/2012 Discontinued TAB, Bedtime, Dosing Weight 66.818, kg, PRN Insomnia, Start date: 08/09/12 17:24:00, Duration: 30 day, Stop date: 09/08/12 17:23:00 ciprofloxacin (SCIP) 400 mg, 200 mL, Route: IVPB, Drug 08/09/2012 08/10/2012 Completed form: INJ, [id number], Dosing Weight 66.818, kg, Start date: 08/09/12 18:00:00, Duration: 2 doses or times, Stop date: 08/10/12 6:00:00 METRONIDazole (SCIP) 500 mg, 100 mL, Route: IVPB, Drug 08/09/2012 08/10/2012 Completed form: INJ, [id number], Dosing Weight 66.818, kg, Start date: 08/09/12 19:00:00, Duration: 3 doses or times, Stop date: 08/10/12 11:00:00 Pristiq 50 mg oral 50 mg, 1 tab, PO, Daily, 30 tab, 08/06/2012 Ordered tablet, extended Substitution Allowed, ERTAB release D5LR 1,000 mL 1,000 mL, Rate: 100 ml/hr, Infuse 08/06/2012 08/11/2012 Discontinued over: 10 hr, Route: IV, kg, Total Volume: 1,000, Start date: 08/06/12 14:08:00, Duration: 30 day, Stop date: 09/05/12 14:07:00 Phenergan + Sodium 12.5 mg, 0.5 mL, Route: IVPB, Q4H, 08/06/2012 08/11/2012 Discontinued Chloride 0.9% IV 50 Dosing Weight 66.364, kg, PRN mL Nausea & Vomiting, Start date: 08/06/12 14:14:00, Duration: 30 day, Stop date: 09/05/12 14:13:00 hydromorphone 1.5 mg, 1.5 mL, Route: IV, Drug 08/06/2012 08/11/2012 Discontinued form: SOLN, Q3H, Dosing Weight 66.818, kg, PRN Pain Score 6-10, Start date: 08/06/12 17:42:00, Duration: 30 day, Stop date: 09/05/12 17:41:00 Rocephin + Sodium 2 gm, Route: IVPB, ONCALL, Start 08/09/2012 08/09/2012 Completed Chloride 0.9% IV 100 date: 08/09/12 12:00:00, Duration: mL 2 day, Stop date: 08/11/12 11:59:00 Fleet Enema 133 ml, Route: CA, Drug Form: SUMAN, 08/08/2012 08/08/2012 Deleted Dosing Weight 66.818, kg, ONCE, Start date: 08/08/12 7:05:00, Stop date: 08/08/12 7:05:00 Dilaudid 1 mg, 1 mL, Route: IV, Drug form: 08/06/2012 08/06/2012 Discontinued SOLN, Q3H, Dosing Weight 66.364, kg, PRN Pain, Start date: 08/06/12 14:13:00, Duration: 30 day, Stop date: 09/05/12 14:12:00 Ambien 10 mg, 1 tab, Route: PO, Drug form: 08/08/2012 08/11/2012 Discontinued TAB, Bedtime, Dosing Weight 66.818, kg, PRN as needed for sleep, Start date: 08/08/12 7:04:00, Duration: 30 day, Stop date: 09/07/12 7:03:00 Protonix 40 mg, Route: IVP, 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, 08/06/2012 08/07/2012 Discontinued Before Dinner, Dosing Weight 66.364, kg, Start date: 08/06/12 16:30:00, Duration: 30 day, Stop date: 09/04/12 16:30:00 Lactated Ringers IV 1,000 mL, Rate: 25 ml/hr, Infuse 08/09/2012 08/09/2012 Discontinued 1,000 mL over: 40 hr, Route: IV, kg, Total Volume: 1,000, Start date: 08/09/12 15:19:00, Duration: 30 day, Stop date: 09/08/12 15:18:00 Pristiq 50 mg oral 1 tab, Route: PO, Drug form: ERTAB, 08/07/2012 08/06/2012 Deleted tablet, extended Daily, Dosing Weight 66.364, kg, release Start date: 08/07/12 9:00:00, Duration: 30 day, Stop date: 09/05/12 9:00:00 influenza virus 0.5 ml, Route: IM, Drug Form: INJ, 03/31/2011 03/31/2011 Completed vaccine, inactivated Start date: 03/31/11 9:00:00, Stop date: 03/31/11 9:00:00 Restoril 30 mg, 2 cap, Route: PO, Drug form: 08/06/2012 08/11/2012 Discontinued CAP, Bedtime, Dosing Weight 66.364, kg, PRN Sleep, Start date: 08/06/12 14:15:00, Duration: 30 day, Stop date: 09/05/12 14:14:00 Milk of Magnesia 60 ml, Route: PO, Drug Form: SUSP, 08/07/2012 08/07/2012 Completed Dosing Weight 66.818, kg, ONCE, PRN as needed for constipation, Start date: 08/07/12 7:13:00 Protonix 40 mg, 1 tab, Route: PO, Drug form: 08/07/2012 08/11/2012 Discontinued ECTAB, Before Dinner, Dosing Weight 66.364, kg, Start date: 08/07/12 16:30:00, Duration: 30 day, Stop date: 09/05/12 16:30:00 Fleet Enema 133 ml, Route: CA, Drug Form: SUMAN, 08/07/2012 08/07/2012 Deleted Dosing Weight 66.818, kg, ONCE, Start date: 08/07/12 7:12:00, Stop date: 08/07/12 7:12:00 Ofirmev 1,000 mg, Route: IV, Drug form: 08/09/2012 08/09/2012 Discontinued INJ, ONCE, Dosing Weight 66.818, kg, PRN Pain, for > or=50 kg, Start date: 08/09/12 18:15:00 [place] 10/325 oral 1 tab, Route: PO, Drug Form: TAB, 08/09/2012 08/09/2012 Discontinued tablet Dosing Weight 66.818, kg, Q6H, PRN Pain, Start date: 08/09/12 18:15:00, Duration: 30 day, Stop date: 09/08/12 18:14:00 hydromorphone 0.5 mg, Route: IVP, Q5Min, Dosing 08/09/2012 08/09/2012 Discontinued Weight 66.818, kg, PRN Pain Score 4-6, Start date: 08/09/12 18:15:00, Duration: 5 doses or times, Stop date: Limited # of times fentanyl 25 microgram, Route: IVP, Q5Min, 08/09/2012 08/09/2012 Discontinued Dosing Weight 66.818, kg, PRN Pain Score 4-6, Start date: 08/09/12 18:15:00, Duration: 4 doses or times, Stop date: Limited # of times flumazenil 0.2 mg, Route: IVP, PRN, Dosing 08/09/2012 08/09/2012 Discontinued Weight 66.818, kg, PRN Benzodiazepine Reversal, Initial dose, Start date: 08/09/12 18:15:00, Duration: 30 day, Stop date: 09/08/12 18:14:00 naloxone 0.04 mg, Route: IVP, Q2MIN, Dosing 08/09/2012 08/09/2012 Discontinued Weight 66.818, kg, PRN Narcotic Reversal, Start date: 08/09/12 18:15:00, Duration: 8 doses or times, Stop date: Limited # of times ondansetron 4 mg, Route: IVP, ONCE, Dosing 08/09/2012 08/09/2012 Discontinued Weight 66.818, kg, PRN Nausea & Vomiting, Start date: 08/09/12 18:15:00 temazepam 15 mg, 1 cap, Route: PO, Drug form: 08/07/2012 08/08/2012 Discontinued CAP, Bedtime, Dosing Weight 66.818, kg, Start date: 08/07/12 21:00:00, Duration: 30 day, Stop date: 09/05/12 21:00:00 diazepam 10 mg, 1 tab, Route: PO, Drug form: 08/07/2012 08/11/2012 Discontinued TAB, QID, Dosing Weight 66.818, kg, Start date: 08/07/12 9:00:00, Duration: 30 day, Stop date: 09/05/12 21:00:00 Pristiq 50 mg oral 50 mg, 1 tab, Route: PO, Drug form: 08/07/2012 08/07/2012 Deleted tablet, extended ERTAB, Daily, Dosing Weight 66.818, release kg, Start date: 08/07/12 9:00:00, Duration: 30 day, Stop date: 09/05/12 9:00:00 Immunizations Vaccine Date Status Hx pneumococcal vaccine 12/29/2010 Auth (Verified) influenza virus vaccine, inactivated 03/31/2011 Not Done influenza virus vaccine, inactivated 07/18/2012 Auth (Verified) Vital Signs Most recent to oldest [Reference Range]: 1 2 3 Height 167.64 cm (08/06/2012 16:08:00) 167.64 cm (08/06/2012 15:32:00) Temperature Oral [96.4-99.1 DegF] 97.9 DegF (08/11/2012 12:15:00) 97.9 DegF (08/11/2012 07:36:00) 97.6 DegF (08/11/2012 04:05:00) Systolic Blood Pressure [90-140 mmHg] 109 mmHg (08/11/2012 12:15:00) 98 mmHg (08/11/2012 10:36:00) 87 mmHg *LOW* (08/11/2012 07:36:00) Diastolic Blood Pressure [60-90 mmHg] 74 mmHg (08/11/2012 12:15:00) 60 mmHg (08/11/2012 10:36:00) 55 mmHg *LOW* (08/11/2012 07:36:00) Respiratory Rate [14-20 BRMIN] 18 BRMIN (08/11/2012 12:15:00) 18 BRMIN (08/11/2012 10:26:00) 19 BRMIN (08/11/2012 07:36:00) Peripheral Pulse Rate [60-100 bpm] 71 bpm (08/11/2012 12:15:00) 73 bpm (08/11/2012 10:36:00) 64 bpm (08/11/2012 07:36:00) Weight 66.818 kg (08/06/2012 16:08:00) 66.818 kg (08/06/2012 15:32:00) Results CHEMISTRY Most recent to oldest [Reference Range]: 1 2 3 Sodium Lvl [135-145 mEq/L] 145 mEq/L (08/09/2012 06:03:00) 146 mEq/L *HI* (08/06/2012 16:00:00) Potassium Lvl [3.5-5.1 mEq/L] 3.8 mEq/L (08/09/2012 06:03:00) 3.5 mEq/L (08/06/2012 16:00:00) Chloride Lvl [95-109 mEq/L] 106 mEq/L (08/09/2012 06:03:00) 109 mEq/L (08/06/2012 16:00:00) CO2 [24-32 mEq/L] 32 mEq/L (08/09/2012 06:03:00) 28 mEq/L (08/06/2012 16:00:00) AGAP [10.0-20.0 mEq/L] 10.8 mEq/L (08/09/2012 06:03:00) 12.5 mEq/L (08/06/2012 16:00:00) Creatinine Lvl [0.5-1.4 mg/dL] 0.7 mg/dL (08/09/2012 06:03:00) 0.8 mg/dL (08/06/2012 16:00:00) eGFR 112 mL/min/1.73m2 1 *NA* (08/09/2012 06:03:00) 95 mL/min/1.73m2 2 *NA* (08/06/2012 16:00:00) BUN [7-22 mg/dL] 2 mg/dL *LOW* (08/09/2012 06:03:00) 10 mg/dL (08/06/2012 16:00:00) B/C Ratio [6-25] 3 *LOW* (08/09/2012 06:03:00) 12 (08/06/2012 16:00:00) Glucose Lvl [70-99 mg/dL] 83 mg/dL 3 (08/09/2012 06:03:00) 87 mg/dL 4 (08/06/2012 16:00:00) Total Protein [6.4-8.4 g/dL] 6.3 g/dL *LOW* (08/10/2012 06:04:00) 5.5 g/dL *LOW* (08/09/2012 06:03:00) 7.3 g/dL (08/06/2012 16:00:00) Albumin Lvl [3.5-5.0 g/dL] 3.7 g/dL (08/10/2012 06:04:00) 3.2 g/dL *LOW* (08/09/2012 06:03:00) 4.2 g/dL (08/06/2012 16:00:00) Globulin [2.0-4.0 g/dL] 2.6 g/dL (08/10/2012 06:04:00) 2.3 g/dL (08/09/2012 06:03:00) 3.1 g/dL (08/06/2012 16:00:00) A/G Ratio [0.7-1.6] 1.4 (08/10/2012 06:04:00) 1.4 (08/09/2012 06:03:00) 1.4 (08/06/2012 16:00:00) Calcium Lvl [8.5-10.5 mg/dL] 8.4 mg/dL *LOW* (08/09/2012 06:03:00) 8.9 mg/dL (08/06/2012 16:00:00) ALT [0-65 unit/L] 35 unit/L (08/10/2012 06:04:00) 22 unit/L (08/09/2012 06:03:00) 43 unit/L (08/06/2012 16:00:00) AST [0-37 unit/L] 15 unit/L (08/10/2012 06:04:00) 6 unit/L (08/09/2012 06:03:00) 14 unit/L (08/06/2012 16:00:00) Alk Phos [39-136 unit/L] 81 unit/L (08/10/2012 06:04:00) 70 unit/L (08/09/2012 06:03:00) 95 unit/L (08/06/2012 16:00:00) Bili Total [0.2-1.3 mg/dL] 0.3 mg/dL (08/10/2012 06:04:00) 0.4 mg/dL (08/09/2012 06:03:00) 0.2 mg/dL (08/06/2012 16:00:00) Bili Direct [0.0-0.3 mg/dL] <0.1 mg/dL (08/10/2012 06:04:00) Bili Indirect [0.0-1.0 mg/dL] >0.2 mg/dL (08/10/2012 06:04:00) Amylase Lvl [25-115 unit/L] 26 unit/L (08/09/2012 06:03:00) Lipase Lvl [73-393 unit/L] 96 unit/L (08/09/2012 06:03:00) U Preg [Negative] Negative (08/08/2012 08:00:36) 1Result Comment: The eGFR is calculated using [...] be mul tiplied by the estimated BMI. 2Result Comment: The eGFR is calculated using [...] values reflect the clinical guidelines of the [place] [employer]. 4Interpretive Data: Adult reference range values reflect the clinical guidelines of the [place] [employer]. HEMATOLOGY Most recent to oldest [Reference Range]: 1 2 3 WBC [3.7-10.4 K/CMM] 4.6 K/CMM (08/10/2012 06:04:00) 3.3 K/CMM *LOW* (08/09/2012 06:03:00) 4.0 K/CMM (08/06/2012 16:00:00) RBC [4.20-5.40 M/CMM] 3.27 M/CMM *LOW* (08/10/2012 06:04:00) 3.06 M/CMM *LOW* (08/09/2012 06:03:00) 3.65 M/CMM *LOW* (08/06/2012 16:00:00) Hgb [12.0-16.0 g/dL] 10.3 g/dL *LOW* (08/10/2012 06:04:00) 9.6 g/dL *LOW* (08/09/2012 06:03:00) 11.4 g/dL *LOW* (08/06/2012 16:00:00) Hct [36.0-48.0 %] 31.7 % *LOW* (08/10/2012 06:04:00) 29.6 % *LOW* (08/09/2012 06:03:00) 35.0 % *LOW* (08/06/2012 16:00:00) MCV [81.0-99.0 fL] 96.9 fL (08/10/2012 06:04:00) 96.7 fL (08/09/2012 06:03:00) 95.8 fL (08/06/2012 16:00:00) MCH [27.0-31.0 pg] 31.6 pg *HI* (08/10/2012 06:04:00) 31.3 pg *HI* (08/09/2012 06:03:00) 31.2 pg *HI* (08/06/2012 16:00:00) MCHC [32.0-36.0 g/dL] 32.6 g/dL (08/10/2012 06:04:00) 32.4 g/dL (08/09/2012 06:03:00) 32.6 g/dL (08/06/2012 16:00:00) RDW [11.5-14.5 %] 12.7 % (08/10/2012 06:04:00) 12.7 % (08/09/2012 06:03:00) 13.2 % (08/06/2012 16:00:00) Platelet [133-450 K/CMM] 216 K/CMM (08/10/2012 06:04:00) 207 K/CMM (08/09/2012 06:03:00) 284 K/CMM (08/06/2012 16:00:00) MPV [7.4-10.4 fL] 9.6 fL (08/10/2012 06:04:00) 9.1 fL (08/09/2012 06:03:00) 9.0 fL (08/06/2012 16:00:00) Segs [45.0-75.0 %] 70.5 % (08/10/2012 06:04:00) 38.7 % *LOW* (08/09/2012 06:03:00) 48.4 % (08/06/2012 16:00:00) Lymphocytes [20.0-40.0 %] 20.8 % (08/10/2012 06:04:00) 44.5 % *HI* (08/09/2012 06:03:00) 41.8 % *HI* (08/06/2012 16:00:00) Monocytes [2.0-12.0 %] 8.2 % (08/10/2012 06:04:00) 10.8 % (08/09/2012 06:03:00) 6.9 % (08/06/2012 16:00:00) Eosinophils [0.0-4.0 %] 0.1 % (08/10/2012 06:04:00) 5.3 % *HI* (08/09/2012 06:03:00) 2.4 % (08/06/2012 16:00:00) Basophils [0.0-1.0 %] 0.4 % (08/10/2012 06:04:00) 0.7 % (08/09/2012 06:03:00) 0.5 % (08/06/2012 16:00:00) Segs-Bands # [1.5-8.1 K/CMM] 3.2 K/CMM (08/10/2012 06:04:00) 1.3 K/CMM *LOW* (08/09/2012 06:03:00) 2.0 K/CMM (08/06/2012 16:00:00) Lymphocytes # [1.0-5.5 K/CMM] 1.0 K/CMM (08/10/2012 06:04:00) 1.5 K/CMM (08/09/2012 06:03:00) 1.7 K/CMM (08/06/2012 16:00:00) Monocytes # [0.0-0.8 K/CMM] 0.4 K/CMM (08/10/2012 06:04:00) 0.4 K/CMM (08/09/2012 06:03:00) 0.3 K/CMM (08/06/2012 16:00:00) Eosinophils # [0.0-0.5 K/CMM] 0.0 K/CMM (08/10/2012 06:04:00) 0.2 K/CMM (08/09/2012 06:03:00) 0.1 K/CMM (08/06/2012 16:00:00) Basophils # [0.0-0.2 K/CMM] 0.0 K/CMM (08/10/2012 06:04:00) 0.0 K/CMM (08/09/2012 06:03:00) 0.0 K/CMM (08/06/2012 16:00:00) Procedures Procedures Date Related Diagnosis Internal and external hemorrhoidectomy and anal fissurectomy
--- OUTSIDE RECORDS SUMMARY | 2018-09-18 17:13 | XMS REPORT | CCD ---
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 Phone Ama Lazo CP Allergies, Adverse Reactions, Alerts Substance Reaction [...] Medication Instructions Start Date End Date Status prochlorperazine 10 10 mg, 1 tab, PO, BID, PRN, 10 tab, 02/12/2013 Ordered mg oral tablet Headache, Substitution Allowed, TAB NS (Bolus) IV 500 mL 500 mL, Rate: 500 ml/hr, Infuse 02/12/2013 02/12/2013 Completed over: 1 hr, Route: IV, Dosing Weight 67.727 kg, Total Volume: 500, Priority: STAT, Start date: 02/12/13 3:55:00, Duration: 1 doses or times, Stop date: 02/12/13 4:54:00, Bolus Dose Bolus Dose influenza virus 0.5 ml, Route: IM, Drug Form: INJ, 07/18/2012 07/18/2012 Completed vaccine, inactivated Start date: 07/18/12 13:30:00, Stop date: 07/18/12 13:30:00 Benadryl 25 mg, Route: IVP, ONCE, Dosing 02/12/2013 02/12/2013 Completed Weight 67.727, kg, Priority: STAT, Start date: 02/12/13 3:43:00, Stop date: 02/12/13 3:43:00 Reglan 10 mg, Route: IVP, 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, 02/12/2013 02/12/2013 Completed ONCE, Dosing Weight 67.727, kg, Priority: STAT, Start date: 02/12/13 3:43:00, Stop date: 02/12/13 3:43:00 Dilaudid 1 mg, Route: IV, ONCE, Dosing 02/12/2013 02/12/2013 Completed Weight 67.727, kg, Start date: 02/12/13 0:43:00, Stop date: 02/12/13 0:43:00 GI cocktail 30 mL, Route: PO, Dosing Weight 02/12/2013 02/12/2013 Completed 67.727, kg, ONCE, STAT, Start date: 02/12/13 0:40:00, Stop date: 02/12/13 0:40:00 Dilaudid 1 mg, Route: IV, ONCE, Dosing 02/11/2013 02/12/2013 Completed Weight 67.727, kg, Start date: 02/11/13 23:52:00, Stop date: 02/11/13 23:52:00 influenza virus 0.5 ml, Route: IM, Drug Form: INJ, 03/31/2011 03/31/2011 Completed vaccine, inactivated Start date: 03/31/11 9:00:00, Stop date: 03/31/11 9:00:00 morphine Sulfate 4 mg, Route: IVP, 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, 02/11/2013 02/11/2013 Discontinued ONCE, Dosing Weight 67.727, kg, Priority: STAT, Start date: 02/11/13 22:12:00, Stop date: 02/11/13 22:12:00 ondansetron 4 mg, Route: IVP, 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, 02/11/2013 02/12/2013 Completed ONCE, Dosing Weight 67.727, kg, Priority: STAT, Start date: 02/11/13 22:12:00, Stop date: 02/11/13 22:12:00 Lactated Ringers 1,000 mL, Rate: 1,000 ml/hr, Infuse 02/11/2013 02/12/2013 Completed Injection IV 1,000 over: 1 hr, Route: IV, Dosing mL Weight 67.727 kg, Total Volume: 1,000, Bolus infusion, Priority: STAT, Start date: 02/11/13 22:12:00, Duration: 1 doses or times, Stop date: 02/11/13 23:11:00 Immunizations Vaccine Date Status Hx pneumococcal vaccine 12/29/2010 Auth (Verified) influenza virus vaccine, inactivated 03/31/2011 Not Done influenza virus vaccine, inactivated 07/18/2012 Auth (Verified) Vital Signs Most recent to oldest [Reference Range]: 1 2 3 Height 170.18 cm (02/11/2013 20:51:00) Temperature Oral [96.4-99.1 DegF] 98.8 DegF (02/11/2013 20:51:00) Systolic Blood Pressure [90-140 mmHg] 114 mmHg (02/12/2013 00:17:00) 124 mmHg (02/11/2013 23:45:00) 133 mmHg (02/11/2013 21:10:00) Diastolic Blood Pressure [60-90 mmHg] 75 mmHg (02/12/2013 00:17:00) 70 mmHg (02/11/2013 23:45:00) 75 mmHg (02/11/2013 21:10:00) Respiratory Rate [14-20 BRMIN] 16 BRMIN (02/12/2013 00:17:00) 18 BRMIN (02/11/2013 23:45:00) 18 BRMIN (02/11/2013 21:10:00) Peripheral Pulse Rate [60-100 bpm] 82 bpm (02/12/2013 00:17:00) 82 bpm (02/11/2013 23:45:00) 83 bpm (02/11/2013 21:10:00) Weight 67.727 kg (02/11/2013 20:51:00) Results URINALYSIS Most recent to oldest [Reference Range]: 1 2 UA Turbidity [Clear] Clear (02/11/2013 20:54:00) UA Color Ltyellow *NA* (02/11/2013 20:54:00) UA pH [5.0-8.0] 5.0 (02/11/2013 20:54:00) UA Spec Grav [<=1.030] 1.010 (02/11/2013 20:54:00) UA Glucose [Negative mg/dL] Negative mg/dL *NA* (02/11/2013 20:54:00) UA Blood [Negative] Negative (02/11/2013 20:54:00) UA Ketones [Negative mg/dL] Trace mg/dL *ABN* (02/11/2013 20:54:00) UA Protein [Negative mg/dL] Negative mg/dL (02/11/2013 20:54:00) UA Urobilinogen [0.1-1.0 mg/dL] <=1.0 mg/dL *NA* (02/11/2013 20:54:00) UA Bili [Negative] Negative *NA* (02/11/2013 20:54:00) UA Leuk Est [Negative] Large *ABN* (02/11/2013 20:54:00) UA Nitrite [Negative] Negative (02/11/2013 20:54:00) UA WBC [0-5 /HPF] 7 /HPF *HI* (02/11/2013 20:54:00) UA RBC [0-2 /HPF] 1 /HPF (02/11/2013 20:54:00) UA Bacteria [None Seen /HPF] Few /HPF *NA* (02/11/2013 20:54:00) UA Sq Epi [Few /LPF] Occasional /LPF *NA* (02/11/2013 20:54:00) CHEMISTRY Most recent to oldest [Reference Range]: 1 2 Sodium Lvl [135-145 mEq/L] 143 mEq/L (02/11/2013 23:40:00) Potassium Lvl [3.5-5.1 mEq/L] 3.8 mEq/L (02/11/2013 23:40:00) Chloride Lvl [95-109 mEq/L] 106 mEq/L (02/11/2013 23:40:00) CO2 [24-32 mEq/L] 28 mEq/L (02/11/2013 23:40:00) AGAP [10.0-20.0 mEq/L] 12.8 mEq/L (02/11/2013 23:40:00) Creatinine Lvl [0.5-1.4 mg/dL] 0.8 mg/dL (02/11/2013 23:40:00) eGFR 94 mL/min/1.73m2 1 *NA* (02/11/2013 23:40:00) BUN [7-22 mg/dL] 12 mg/dL (02/11/2013 23:40:00) B/C Ratio [6-25] 15 (02/11/2013 23:40:00) Glucose Lvl [70-99 mg/dL] 81 mg/dL 2 (02/11/2013 23:40:00) Total Protein [6.4-8.4 g/dL] 7.6 g/dL (02/11/2013 23:40:00) Albumin Lvl [3.5-5.0 g/dL] 4.3 g/dL (02/11/2013:40:00) Globulin [2.0-4.0 g/dL] 3.3 g/dL (02/11/2013:40:00) A/G Ratio [0.7-1.6] 1.3 (02/11/2013:40:00) Calcium Lvl [8.5-10.5 mg/dL] 9.8 mg/dL (02/11/2013 23:40:00) ALT [0-65 unit/L] 50 unit/L (02/11/2013:40:00) AST [0-37 unit/L] 14 unit/L (02/11/2013 23:40:00) Alk Phos [39-136 unit/L] 152 unit/L *HI* (02/11/2013:40:00) Bili Total [0.2-1.3 mg/dL] 0.3 mg/dL (02/11/2013 23:40:00) Total CK [12-191 unit/L] 88 unit/L (02/12/2013 02:36:00) 86 unit/L (02/11/2013:40:00) CK MB [0.5-3.6 ng/mL] <0.5 ng/mL (02/12/2013:36:00) <0.5 ng/mL (02/11/2013:40:00) CK MB Index [0.0-2.5] <0.6 (02/12/2013 02:36:00) <0.6 (02/11/2013:40:00) Troponin-I [0.00-0.40 ng/mL] <0.02 ng/mL (02/12/2013 02:36:00) <0.02 ng/mL (02/11/2013 23:40:00) 1Result Comment: The eGFR is calculated using [...] values reflect the clinical guidelines of the [place] [employer]. HEMATOLOGY Most recent to oldest [Reference Range]: 1 2 WBC [3.7-10.4 K/CMM] 4.3 K/CMM (02/11/2013:40:00) RBC [4.20-5.40 M/CMM] 4.02 M/CMM *LOW* (02/11/2013:40:) Hgb [12.0-16.0 g/dL] 12.5 g/dL (02/11/2013:40:00) Hct [36.0-48.0 %] 38.2 % (02/11/2013:40:00) MCV [81.0-99.0 fL] 95.1 fL (02/11/2013:40:00) MCH [27.0-31.0 pg] 31.0 pg (02/11/2013:40:00) MCHC [32.0-36.0 g/dL] 32.6 g/dL (02/11/2013:40:00) RDW [11.5-14.5 %] 14.3 % (02/11/2013:40:00) Platelet [133-450 K/CMM] 324 K/CMM (02/11/2013 23:40:00) MPV [7.4-10.4 fL] 10.0 fL (02/11/2013 23:40:00) Segs [45.0-75.0 %] 45.3 % (02/11/2013 23:40:00) Lymphocytes [20.0-40.0 %] 44.8 % *HI* (02/11/2013 23:40:00) Monocytes [2.0-12.0 %] 7.1 % (02/11/2013 23:40:00) Eosinophils [0.0-4.0 %] 2.2 % (02/11/2013 23:40:00) Basophils [0.0-1.0 %] 0.6 % (02/11/2013 23:40:00) Segs-Bands # [1.5-8.1 K/CMM] 1.9 K/CMM (02/11/2013 23:40:00) Lymphocytes # [1.0-5.5 K/CMM] 1.9 K/CMM (02/11/2013 23:40:00) Monocytes # [0.0-0.8 K/CMM] 0.3 K/CMM (02/11/2013 23:40:00) Eosinophils # [0.0-0.5 K/CMM] 0.1 K/CMM (02/11/2013 23:40:00) Basophils # [0.0-0.2 K/CMM] 0.0 K/CMM (02/11/2013 23:40:00)
--- OUTSIDE RECORDS SUMMARY | 2018-09-18 17:13 | XMS REPORT | CCD ---
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 Name Role Phone Hank Sandoval CP Allergies, Adverse Reactions, Alerts Substance Reaction [...] Medication Instructions Start Date End Date Status magnesium sulfate 2 gm, 50 mL, Route: IVPB, Drug 09/27/2012 09/27/2012 Completed form: INJ, ONCE, Dosing Weight 64.545, kg, Total dose=2 gm, Start date: 09/27/12 21:35:00, Duration: 1 doses or times, Stop date: 09/27/12 21:35:00 Dilaudid 1 mg, 0.5 mL, Route: IV, Drug form: 09/28/2012 09/28/2012 Completed INJ, ONCE, Dosing Weight 64.545, kg, Start date: 09/28/12 1:27:00, Stop date: 09/28/12 1:27:00 Cipro 750 mg oral 750 mg, 1 tab, PO, Q12H, 6 tab, 09/28/2012 10/01/2012 Ordered tablet Substitution Allowed influenza virus 0.5 ml, Route: IM, Drug Form: INJ, 07/18/2012 07/18/2012 Completed vaccine, inactivated Start date: 07/18/12 13:30:00, Stop date: 07/18/12 13:30:00 Celexa 20 mg, PO, QAM, Substitution 09/27/2012 Ordered Allowed Atarax 25 mg oral 25 mg, 1 tab, PO, Bedtime, 09/27/2012 Ordered tab Substitution Allowed diazepam 10 mg, 1 tab, Route: PO, Drug form: 09/27/2012 09/27/2012 Completed TAB, ONCE, Dosing Weight 64.545, kg, Priority: STAT, Start date: 09/27/12 21:17:00, Stop date: 09/27/12 21:17:00 Ambien Substitution Allowed 09/27/2012 09/27/2012 Deleted Tylenol 975 mg, 3 tab, Route: PO, Drug 09/27/2012 09/27/2012 Completed form: TAB, ONCE, Dosing Weight 64.545, kg, Priority: STAT, Start date: 09/27/12 22:12:00, Stop date: 09/27/12 22:12:00 Centrum Women's oral 1 tab, PO, Daily, Substitution 09/27/2012 Ordered tablet Allowed, Maintenance Dilaudid 1 mg, 0.5 mL, Route: IV, Drug form: 09/28/2012 09/28/2012 Completed INJ, ONCE, Dosing Weight 64.545, kg, Start date: 09/28/12 0:16:00, Stop date: 09/28/12 0:16:00 NS (Bolus) IV 1,000 1,000 mL, Rate: 1,000 ml/hr, Infuse 09/28/2012 09/28/2012 Completed mL over: 1 hr, Route: IV, Dosing Weight 64.545 kg, Total Volume: 1,000, Priority: STAT, Start date: 09/28/12 0:15:00, Duration: 1 doses or times, Stop date: 09/28/12 1:14:00, Bolus Dose Bolus Dose morphine Sulfate 4 mg, Route: IVP, ONCE, Dosing 09/28/2012 09/28/2012 Discontinued Weight 64.545, kg, Start date: 09/28/12 0:15:00, Stop date: 09/28/12 0:15:00 influenza virus 0.5 ml, Route: IM, Drug Form: INJ, 03/31/2011 03/31/2011 Completed vaccine, inactivated Start date: 03/31/11 9:00:00, Stop date: 03/31/11 9:00:00 Immunizations Vaccine Date Status Hx pneumococcal vaccine 12/29/2010 Auth (Verified) influenza virus vaccine, inactivated 03/31/2011 Not Done influenza virus vaccine, inactivated 07/18/2012 Auth (Verified) Vital Signs Most recent to oldest [Reference Range]: 1 Height 170.18 cm (09/27/2012 19:56:00) Weight 64.545 kg (09/27/2012 19:56:00) Results URINALYSIS Most recent to oldest [Reference Range]: 1 UA Turbidity [Clear] Slight Cloudy (09/28/2012 00:45:00) UA Color [Yellow] Yellow *NA* (09/28/2012 00:45:00) UA pH [5.0-8.0] 6.0 (09/28/2012 00:45:00) UA Spec Grav [<=1.030] 1.020 (09/28/2012 00:45:00) UA Glucose [Negative] Negative (09/28/2012 00:45:00) UA Blood [Negative] Negative (09/28/2012 00:45:00) UA Ketones [Negative] Negative *NA* (09/28/2012 00:45:00) UA Protein [Negative] Negative (09/28/2012 00:45:00) UA Urobilinogen [0.1-1.0 EU/dL] 0.2 EU/dL (09/28/2012 00:45:00) UA Bili [Negative] Negative *NA* (09/28/2012 00:45:00) UA Leuk Est [Negative] Small *ABN* (09/28/2012 00:45:00) UA Nitrite [Negative] Negative (09/28/2012 00:45:00) UA WBC [None Seen /HPF] 6-10 /HPF *ABN* (09/28/2012 00:45:00) UA RBC [0-2 /HPF] 0-2 /HPF (09/28/2012 00:45:00) UA Bacteria [None Seen /HPF] Few /HPF (09/28/2012 00:45:00) UA Sq Epi [Few /LPF] Few /LPF (09/28/2012 00:45:00) UA Mucus [None Seen /LPF] Moderate /LPF *ABN* (09/28/2012 00:45:00) Micro? Performed (09/28/2012 00:45:00) CHEMISTRY Most recent to oldest [Reference Range]: 1 Sodium Lvl [135-145 mEq/L] 143 mEq/L (09/27/2012:58:29) Potassium Lvl [3.5-5.1 mEq/L] 4.6 mEq/L (09/27/2012:58:29) Chloride Lvl [95-109 mEq/L] 105 mEq/L (09/27/2012:58:29) CO2 [24-32 mEq/L] 31 mEq/L (09/27/2012:58:29) AGAP [10.0-20.0 mEq/L] 11.6 mEq/L (09/27/2012:58:29) Creatinine Lvl [0.5-1.4 mg/dL] 0.8 mg/dL (09/27/2012:58:29) eGFR 95 mL/min/1.73m2 1 *NA* (09/27/2012:58:29) BUN [7-22 mg/dL] 12 mg/dL (09/27/2012:58:29) Glucose Lvl [70-99 mg/dL] 94 mg/dL 2 (09/27/2012:58:29) Calcium Lvl [8.5-10.5 mg/dL] 9.7 mg/dL (09/27/2012:58:29) Phosphorus [2.5-4.5 mg/dL] 4.3 mg/dL (09/27/2012:58:29) Magnesium Lvl [1.8-2.4 mg/dL] 1.7 mg/dL *LOW* (09/27/2012:58:29) 1Result Comment: The eGFR is calculated using [...] values reflect the clinical guidelines of the [place] [employer]. HEMATOLOGY Most recent to oldest [Reference Range]: 1 WBC [3.7-10.4 K/CMM] 4.7 K/CMM (09/27/2012:58:) RBC [4.20-5.40 M/CMM] 3.79 M/CMM *LOW* (09/27/2012:58:) Hgb [12.0-16.0 g/dL] 12.2 g/dL (09/27/2012:58:) Hct [36.0-48.0 %] 36.2 % (09/27/2012:58:) MCV [81.0-99.0 fL] 95.6 fL (09/27/2012:58:) MCH [27.0-31.0 pg] 32.1 pg *HI* (09/27/2012:58:) MCHC [32.0-36.0 g/dL] 33.6 g/dL (09/27/2012:58:) RDW [11.5-14.5 %] 13.1 % (09/27/2012:58:) Platelet [133-450 K/CMM] 313 K/CMM (09/27/2012:58:) MPV [7.4-10.4 fL] 9.5 fL (09/27/2012:58:) Segs [45.0-75.0 %] 46.4 % (09/27/2012:58:) Lymphocytes [20.0-40.0 %] 44.0 % *HI* (09/27/2012:58:) Monocytes [2.0-12.0 %] 6.6 % (09/27/2012:58:) Eosinophils [0.0-4.0 %] 1.3 % (09/27/2012:58:) Basophils [0.0-1.0 %] 1.7 % *HI* (09/27/2012 20:58:29) Segs-Bands # [1.5-8.1 K/CMM] 2.1 K/CMM (09/27/2012 20:58:29) Lymphocytes # [1.0-5.5 K/CMM] 2.1 K/CMM (09/27/2012 20:58:29) Monocytes # [0.0-0.8 K/CMM] 0.3 K/CMM (09/27/2012 20:58:29) Eosinophils # [0.0-0.5 K/CMM] 0.1 K/CMM (09/27/2012 20:58:29) Basophils # [0.0-0.2 K/CMM] 0.1 K/CMM (09/27/2012 20:58:29) Procedures Procedures Date Related Diagnosis Cholecystectomy
--- OUTSIDE RECORDS SUMMARY | 2018-09-18 17:13 | XMS REPORT | CCD ---
Author Author Auto Generated Organization [facility] Address Unknown Phone Unavailable Care Team Providers Care Scalp Specialist Name Role Phone Antonio Hope CP Allergies, [...] Medication Instructions Start Date End Date Status ondansetron 4 mg, 2 mL, Route: IVP, Drug form: 07/07/2012 07/07/2012 Completed INJ, ONCE, Dosing Weight 66.364, kg, Priority: STAT, Start date: 07/07/12 0:05:00, Stop date: 07/07/12 0:05:00 Sodium Chloride 0.9% 500 mL, 1000 ml/hr, Route: IV, Drug 07/07/2012 07/07/2012 Completed (Bolus) IV Form: INJ, Dosing Weight 66.364, kg, ONCE, Bolus at 1,000 ml/hr, STAT, Start date: 07/07/12 0:05:00, Stop date: 07/07/12 0:05:00 Saline Flush 0.9% 5 mL, Route: IVP, Drug Form: INJ, 07/07/2012 07/07/2012 Discontinued Dosing Weight 66.364, kg, PRN, PRN Line Flush, Start date: 07/07/12 0:05:00, Duration: 24 hr, Stop date: 07/08/12 0:04:00 morphine Sulfate 4 mg, 2 mL, Route: IVP, Drug form: 07/07/2012 07/07/2012 Completed INJ, ONCE, Dosing Weight 66.364, kg, Priority: STAT, Start date: 07/07/12 0:05:00, Stop date: 07/07/12 0:05:00 Ultram 50 mg oral 50 mg, 1 tab, PO, Q4H, PRN, 12 tab, 07/07/2012 Ordered tablet pain, Substitution Allowed influenza virus 0.5 ml, Route: IM, Drug Form: INJ, 03/31/2011 03/31/2011 Completed vaccine, inactivated Start date: 03/31/11 9:00:00, Stop date: 03/31/11 9:00:00 Benadryl 25 mg, Route: PO, Drug form: CAP, 07/07/2012 07/07/2012 Completed ONCE, Dosing Weight 66.364, kg, Priority: STAT, Start date: 07/07/12 1:11:00, Stop date: 07/07/12 1:11:00 Immunizations Vaccine Date Status Hx pneumococcal vaccine 12/29/2010 Auth (Verified) influenza virus vaccine, inactivated 03/31/2011 Not Done Vital Signs Most recent to oldest [Reference Range]: 1 Height 170.18 cm (07/06/2012 23:32:00) Weight 66.364 kg (07/06/2012 23:32:00) Results URINALYSIS Most recent to oldest [Reference Range]: 1 UA Turbidity [Clear] Clear (07/06/2012 23:36:00) UA Color [Yellow] Yellow *NA* (07/06/2012 23:36:00) UA pH [5.0-8.0] 6.0 (07/06/2012 23:36:00) UA Spec Grav [<=1.030] 1.006 (07/06/2012 23:36:00) UA Glucose [Negative mg/dL] Negative mg/dL *NA* (07/06/2012 23:36:00) UA Blood [Negative] Negative (07/06/2012 23:36:00) UA Ketones [Negative mg/dL] Negative mg/dL *NA* (07/06/2012 23:36:00) UA Protein [Negative mg/dL] Negative mg/dL (07/06/2012 23:36:00) UA Urobilinogen [0.1-1.0 mg/dL] <=1.0 mg/dL *NA* (07/06/2012 23:36:00) UA Bili [Negative] Negative *NA* (07/06/2012 23:36:00) UA Leuk Est [Negative] Negative (07/06/2012 23:36:00) UA Nitrite [Negative] Negative (07/06/2012 23:36:00) UA WBC [0-5 /HPF] <1 /HPF (07/06/2012 23:36:00) UA RBC [0-2 /HPF] <1 /HPF (07/06/2012 23:36:00) UA Sq Epi None Seen *NA* (07/06/2012 23:36:00) CHEMISTRY Most recent to oldest [Reference Range]: 1 Sodium Lvl [135-145 mEq/L] 141 mEq/L (07/07/2012 00:55:00) Potassium Lvl [3.5-5.1 mEq/L] 3.6 mEq/L (07/07/2012 00:55:00) Chloride Lvl [95-109 mEq/L] 104 mEq/L (07/07/2012 00:55:00) CO2 [24-32 mEq/L] 28 mEq/L (07/07/2012 00:55:00) AGAP [10.0-20.0 mEq/L] 12.6 mEq/L (07/07/2012 00:55:00) Creatinine Lvl [0.5-1.4 mg/dL] 0.9 mg/dL (07/07/2012 00:55:00) eGFR 83 mL/min/1.73m2 1 *NA* (07/07/2012 00:55:00) BUN [7-22 mg/dL] 14 mg/dL (07/07/2012 00:55:00) B/C Ratio [6-25] 16 (07/07/2012 00:55:00) Glucose Lvl [70-99 mg/dL] 88 mg/dL 2 (07/07/2012 00:55:00) Total Protein [6.4-8.4 g/dL] 7.6 g/dL (07/07/2012 00:55:00) Albumin Lvl [3.5-5.0 g/dL] 4.1 g/dL (07/07/2012 00:55:00) Globulin [2.0-4.0 g/dL] 3.5 g/dL (07/07/2012 00:55:00) A/G Ratio [0.7-1.6] 1.2 (07/07/2012 00:55:00) Calcium Lvl [8.5-10.5 mg/dL] 8.6 mg/dL (07/07/2012 00:55:00) ALT [0-65 unit/L] 67 unit/L *HI* (07/07/2012 00:55:00) AST [0-37 unit/L] 31 unit/L (07/07/2012 00:55:00) Alk Phos [39-136 unit/L] 100 unit/L (07/07/2012 00:55:00) Bili Total [0.2-1.3 mg/dL] 0.1 mg/dL *LOW* (07/07/2012 00:55:00) U Preg [Negative] Negative (07/06/2012 23:36:00) 1Result Comment: The eGFR is calculated using [...] values reflect the clinical guidelines of the [place] [employer]. HEMATOLOGY Most recent to oldest [Reference Range]: 1 WBC [3.7-10.4 K/CMM] 3.3 K/CMM *LOW* (07/07/2012 00:55:00) RBC [4.20-5.40 M/CMM] 3.47 M/CMM *LOW* (07/07/2012 00:55:00) Hgb [12.0-16.0 g/dL] 11.0 g/dL *LOW* (07/07/2012 00:55:00) Hct [36.0-48.0 %] 33.2 % *LOW* (07/07/2012 00:55:00) MCV [81.0-99.0 fL] 95.8 fL (07/07/2012 00:55:00) MCH [27.0-31.0 pg] 31.6 pg *HI* (07/07/2012 00:55:00) MCHC [32.0-36.0 g/dL] 33.0 g/dL (07/07/2012 00:55:00) RDW [11.5-14.5 %] 13.1 % (07/07/2012 00:55:00) Platelet [133-450 K/CMM] 238 K/CMM (07/07/2012 00:55:00) MPV [7.4-10.4 fL] 9.5 fL (07/07/2012 00:55:00) Segs [45.0-75.0 %] 39.4 % *LOW* (07/07/2012 00:55:00) Lymphocytes [20.0-40.0 %] 44.6 % *HI* (07/07/2012 00:55:00) Monocytes [2.0-12.0 %] 12.7 % *HI* (07/07/2012 00:55:00) Eosinophils [0.0-4.0 %] 2.7 % (07/07/2012 00:55:00) Basophils [0.0-1.0 %] 0.6 % (07/07/2012 00:55:00) Segs-Bands # [1.5-8.1 K/CMM] 1.3 K/CMM *LOW* (07/07/2012 00:55:00) Lymphocytes # [1.0-5.5 K/CMM] 1.5 K/CMM (07/07/2012 00:55:00) Monocytes # [0.0-0.8 K/CMM] 0.4 K/CMM (07/07/2012 00:55:00) Eosinophils # [0.0-0.5 K/CMM] 0.1 K/CMM (07/07/2012 00:55:00) Basophils # [0.0-0.2 K/CMM] 0.0 K/CMM (07/07/2012 00:55:00) Microbiology Reports PROCEDURE:Culture: Urine STATUS: Auth (Verified) BODY SITE: COLLECTED DATE/TIME: 07/06/2012 23:36:00 SOURCE: Urine, Catheterized FREE TEXT SOURCE: FINAL REPORTS Final Report <10,000 CFU/mL [place] PRELIMINARY REPORTS Preliminary Report No Growth; Holding
--- OUTSIDE RECORDS SUMMARY | 2018-09-18 17:13 | XMS REPORT | CCD ---
Author Author Auto Generated Organization [facility] Address Unknown Phone Unavailable Care Team Providers Care Recreational Leader Name Role Phone Corey Bolaños CP Allergies, Adverse Reactions, Alerts Substance Reaction Status aspirin Active Augmentin Active Food MSG Active Imitrex Active iodine Active Paper Tape Active shellfish Active Problem List Condition Effective Dates Status Abdominal pain Active Anxiety Active Anxiety Active bipolar Resolved Cancer1 Resolved Cancer of cervix Active Depression Active Female genital organ symptoms2 Active Gastric bypass operation Active high cholesterol Resolved hx cerv cancer Resolved hx gastric bypass Resolved hypoglycemia Resolved Kidney infection Resolved Laparoscopic procedure Active Lumbar Fusion L3 S1 Resolved lumbar fusion surgery Resolved Lumbar puncture headache Active Lysis of adhesions Active Malabsorption Resolved Migraine Active Sinusitis Active Ulcer Active 1cervical 2CANCELLED Medications Medication Instructions Start Date End Date Status acetaminophen 650 mg, 2 tab, Route: PO, Drug 06/05/2013 06/10/2013 Discontinued form: TAB, Q4H, Dosing Weight 67.727, kg, PRN Pain 1-3/Temp > 100.4 F, Start date: 06/05/13 14:49:00, Duration: 30 day, Stop date: 07/05/13 14:48:00Do not exceed 4 gm/day. (Same as: Tylenol) D5W 1/2NS + KCL 1,000 mL, Rate: 100 ml/hr, Infuse 06/05/2013 06/05/2013 Deleted 20mEq/L 1000ml over: 10 hr, Route: IV, Dosing (Premix) 1000 mL Weight 67.727 kg, Total Volume: 1,000, Start date: 06/05/13 14:49:00, Duration: 30 day, Stop date: 07/05/13 14:48:00 docusate 100 mg, 1 cap, Route: PO, Drug 06/05/2013 06/10/2013 Discontinued form: CAP, BID, Dosing Weight 67.727, kg, PRN as needed for constipation, Start date: 06/05/13 14:49:00, Duration: 30 day, Stop date: 07/05/13 14:48:00(Same as: Colace) (Do Not Crush) albuterol 90 mcg/inh 2 puff, INHALATION, QID, wheezing, 06/10/2013 Ordered inhalation aerosol # 1 can, 0 Refill(s) docusate sodium 100 100 mg=1 cap, PO, Daily, as needed 06/10/2013 Ordered mg oral capsule for constipation, # 100 cap, 3 Refill(s) MiraLax 17 gm, 1 pkt, Route: PO, Drug form: 06/09/2013 06/10/2013 Discontinued PWDR, BID, Dosing Weight 66.364, kg, Start date: 06/09/13 9:00:00, Duration: 30 day, Stop date: 07/08/13 17:00:00Dissolve in 8 oz of water or juice.(Same as: Miralax) Colace 100 mg oral 100 mg, 1 cap, Route: PO, Drug 06/08/2013 06/10/2013 Discontinued capsule form: CAP, Bedtime, Dosing Weight 66.364, kg, Start date: 06/08/13 21:00:00, Duration: 30 day, Stop date: 07/07/13 21:00:00(Same as: Colace) (Do Not Crush) Solu-MEDROL 20 mg, 0.5 mL, Route: IVP, Drug 06/05/2013 06/09/2013 Discontinued form: INJ, [id number], Dosing Weight 67.727, kg, Start date: 06/05/13 18:00:00, Stop date: 07/05/13 6:00:00(Same as:Solu-MEDROL, A-Methapred) levofloxacin 750 mg 750 mg=1 tab, PO, Daily, # 10 tab, 06/05/2013 06/10/2013 Discontinued oral tablet 0 Refill(s) hydromorphone 2 mg, 2 mL, Route: IVP, Drug form: 06/08/2013 06/08/2013 Completed INJ, ONCE, Dosing Weight 66.364, kg, Priority: STAT, Start date: 06/08/13 0:54:00, Stop date: 06/08/13 0:54:00 polyethylene glycol 17 gm, PO, BID, # 527 gm, 1 06/10/2013 Ordered 3350 oral powder for Refill(s) reconstitution zolpidem 10 mg, 1 tab, Route: PO, Drug form: 06/05/2013 06/10/2013 Discontinued TAB, Bedtime, Dosing Weight 66.364, kg, Start date: 06/05/13 21:00:00, Duration: 30 day, Stop date: 07/04/13 21:00:00(Same As: Ambien) hydrOXYzine 25 mg, 1 tab, Route: PO, Drug form: 06/05/2013 06/10/2013 Discontinued TAB, Bedtime, Dosing Weight 66.364, kg, Start date: 06/05/13 21:00:00, Duration: 30 day, Stop date: 07/04/13 21:00:00(Same as: Atarax) Avoid alcohol. CeleXA 40 mg, 2 tab, Route: PO, Drug form: 06/06/2013 06/10/2013 Discontinued TAB, QAM, Dosing Weight 66.364, kg, Start date: 06/06/13 9:00:00, Duration: 30 day, Stop date: 07/05/13 9:00:00(Same As: CeleXA) chlordiazePOXIDE 25 25 mg, 1 cap, Route: PO, Drug form: 06/05/2013 06/10/2013 Discontinued mg oral capsule CAP, QID, Dosing Weight 66.364, kg, PRN Anxiety, Start date: 06/05/13 19:45:00, Duration: 30 day, Stop date: 07/05/13 19:44:00 Tamiflu 75 mg, 1 cap, Route: PO, Drug form: 06/05/2013 06/10/2013 Completed CAP, [id number], Dosing Weight 66.364, kg, Start date: 06/05/13 21:00:00, Duration: 10 doses or times, Stop date: 06/10/13 9:00:00Take with food.Same as: Tamiflu) predniSONE 5 mg oral 5 mg=1 tab, PO, TID, # 21 tab, 0 06/05/2013 06/10/2013 Discontinued tablet Refill(s) Levaquin 500 mg, 100 mL, Route: IVPB, Drug 06/05/2013 06/09/2013 Discontinued form: INJ, [id number], Dosing Weight 67.727, kg, Start date: 06/05/13 12:00:00, Duration: 30 day, Stop date: 07/04/13 20:00:00(Same as:Levaquin) chlordiazePOXIDE 25 25 mg=1 cap, PO, QID, Anxiety, # 60 06/05/2013 Ordered mg oral capsule cap, 0 Refill(s) albuterol 1.25 mg, 3 mL, Route: NEB, Drug 06/05/2013 06/10/2013 Discontinued form: SOLN, PRN, PRN Respiratory Protocol, Start date: 06/05/13 16:04:00, Duration: 30 day, Stop date: 07/05/13 16:03:00SEE RT DOCUMENTATION (Same as: Dea) influenza virus 0.5 ml, Route: IM, Drug Form: INJ, 07/18/2012 07/18/2012 Completed vaccine, inactivated Start date: 07/18/12 13:30:00, Stop date: 07/18/12 13:30:00 Bentyl 10 mg, 1 cap, Route: PO, Drug form: 06/09/2013 06/10/2013 Discontinued CAP, QID, Dosing Weight 66.364, kg, Start date: 06/09/13 21:00:00, Duration: 30 day, Stop date: 07/09/13 17:00:00(Same as: Bentyl) DuoNeb inhalation 3 ml, INHALATION, QID, Wheezing, # 06/10/2013 Ordered solution 60 ea, 0 Refill(s) Flonase 0.05 mg/inh 2 inhalation, Route: Each Affected 06/07/2013 06/10/2013 Discontinued nasal spray Nostril, Drug Form: SPRY, Dosing Weight 66.364, kg, Daily, Start date: 06/07/13 9:00:00, Duration: 30 day, Stop date: 07/06/13 9:00:00(Same as: Flonase) Dilaudid 1 mg, 1 mL, Route: IV, Drug form: 06/08/2013 06/10/2013 Discontinued INJ, Q6H, Dosing Weight 66.364, kg, PRN Pain Score 6-10, Start date: 06/08/13 10:35:00, Duration: 30 day, Stop date: 07/08/13 10:34:00 Xopenex 0.63 mg, Route: NEB, PRN, Dosing 06/05/2013 06/05/2013 Deleted Weight 67.727, kg, PRN Respiratory Protocol, Start date: 06/05/13 11:57:00, Duration: 30 day, Stop date: 07/05/13 11:56:00 Restoril 30 mg, 2 cap, Route: PO, Drug form: 06/05/2013 06/10/2013 Discontinued CAP, Bedtime, Dosing Weight 67.727, kg, PRN Sleep, Start date: 06/05/13 12:03:00, Duration: 30 day, Stop date: 07/05/13 12:02:00(Same As: Restoril) normal saline 0.9% 1,000 mL, Rate: 125 ml/hr, Infuse 06/05/2013 06/09/2013 Discontinued IV 1,000 mL over: 8 hr, Route: IV, Dosing Weight 67.727 kg, Total Volume: 1,000, Start date: 06/05/13 12:02:00, Duration: 30 day, Stop date: 07/05/13 12:01:00 Ambien 10 mg, 1 tab, Route: PO, Drug form: 06/06/2013 06/06/2013 Completed TAB, ONCE, Start date: 06/06/13 0:35:00, Stop date: 06/06/13 0:35:00(Same As: Ambien) influenza virus 0.5 ml, Route: IM, Drug Form: INJ, 03/31/2011 03/31/2011 Completed vaccine, inactivated Start date: 03/31/11 9:00:00, Stop date: 03/31/11 9:00:00 Nebulizer 1 ea, MISC, ONCALL, # 1 ea, 0 06/10/2013 Ordered Refill(s) Fioricet oral tablet 1 tab, Route: PO, Drug Form: TAB, 06/05/2013 06/10/2013 Discontinued Dosing Weight 66.364, kg, Q4H, PRN Headache, Start date: 06/05/13 21:06:00, Duration: 30 day, Stop date: 07/05/13 21:05:00(vbuwncaqbjgzc-oqlsbtjtjr-w affeine 325-50-40mg) Do not exceed 4 gm/day of acetaminophen. (Same as: Esgic, Fioricet) zolpidem 10 mg oral 10 mg=1 tab, PO, Bedtime, # 7 tab, 06/10/2013 Ordered tablet 0 Refill(s) Promethazine DM oral 5 ml, PO, Q6H, for cough, # 120 ml, 06/05/2013 06/10/2013 Discontinued syrup 0 Refill(s) Levaquin 500 mg, 2 tab, Route: PO, Drug 06/09/2013 06/10/2013 Discontinued form: TAB, Daily, Dosing Weight 66.364, kg, Start date: 06/09/13 21:00:00, Duration: 30 day, Stop date: 07/08/13 21:00:00Do not give w/antacids, dairy pdt & minerals Take 1 hr before or 2 hr after dairy pdt (Same as:Levaquin) predniSONE 40 mg, 2 tab, Route: PO, Drug form: 06/10/2013 06/10/2013 Discontinued TAB, Daily, Dosing Weight 66.364, kg, Start date: 06/10/13 9:00:00, Duration: 30 day, Stop date: 07/09/13 9:00:00Take with food. Robitussin-AC oral 5 ml, Route: PO, Drug Form: LIQ, 06/05/2013 06/10/2013 Discontinued syrup Dosing Weight 67.727, kg, Q4H, PRN Cough/Congestion, Start date: 06/05/13 12:02:00, Duration: 30 day, Stop date: 07/05/13 12:01:00(Same As: Robitussin AC) predniSONE 20 mg 40 mg=2 tab, PO, Daily, # 10 tab, 0 06/10/2013 Ordered oral tablet Refill(s) levofloxacin 750 mg 750 mg=1 tab, PO, Daily, # 5 tab, 0 06/10/2013 Ordered oral tablet Refill(s) Promethazine DM oral 5 mL, PO, Q6H, for cough, # 30 mL, 06/10/2013 Ordered syrup 0 Refill(s) Saline Flush 0.9% 5 ml, Route: IVP, Drug Form: INJ, 06/05/2013 06/10/2013 Discontinued Dosing Weight 67.727, kg, PRN, PRN Line Flush, Start date: 06/05/13 14:49:00, Duration: 30 day, Stop date: 07/05/13 14:48:00Same as: BD Posiflush Sterile Immunizations Vaccine Date Status Hx pneumococcal vaccine 12/29/2010 Auth (Verified) influenza virus vaccine, inactivated 03/31/2011 Not Done influenza virus vaccine, inactivated 07/18/2012 Auth (Verified) Vital Signs Most recent to oldest [Reference Range]: 1 2 3 Height 170.18 cm (06/05/2013 14:50:00) Temperature Oral [96.4-99.1 DegF] 98.4 DegF (06/10/2013 08:00:00) 98.0 DegF (06/10/2013 04:09:00) 98.0 DegF (06/10/2013 00:32:00) Systolic Blood Pressure [90-140 mmHg] 132 mmHg (06/10/2013 08:00:00) 104 mmHg (06/10/2013 04:09:00) 107 mmHg (06/10/2013 00:32:00) Diastolic Blood Pressure [60-90 mmHg] 88 mmHg (06/10/2013 08:00:00) 60 mmHg (06/10/2013 04:09:00) 62 mmHg (06/10/2013 00:32:00) Respiratory Rate [14-20 BRMIN] 18 BRMIN (06/10/2013 08:00:00) 16 BRMIN (06/10/2013 06:51:00) 16 BRMIN (06/10/2013 04:09:00) Peripheral Pulse Rate [60-100 bpm] 74 bpm (06/10/2013 08:00:00) 77 bpm (06/10/2013 04:09:00) 78 bpm (06/10/2013 00:32:00) Weight 66.364 kg (06/05/2013 14:50:00) Results URINALYSIS Most recent to oldest [Reference Range]: 1 UA Turbidity [Clear] Clear (06/05/2013 20:57:00) UA Color Ltyellow *NA* (06/05/2013 20:57:00) UA pH [5.0-8.0] 7.0 (06/05/2013 20:57:00) UA Spec Grav [<=1.030] 1.005 (06/05/2013 20:57:00) UA Glucose [Negative mg/dL] Negative mg/dL *NA* (06/05/2013 20:57:00) UA Blood [Negative] Negative (06/05/2013 20:57:00) UA Ketones [Negative mg/dL] Negative mg/dL *NA* (06/05/2013 20:57:00) UA Protein [Negative mg/dL] Negative mg/dL (06/05/2013 20:57:00) UA Urobilinogen [0.1-1.0 mg/dL] <=1.0 mg/dL *NA* (06/05/2013 20:57:00) UA Bili [Negative] Negative *NA* (06/05/2013 20:57:00) UA Leuk Est [Negative] Moderate *ABN* (06/05/2013 20:57:00) UA Nitrite [Negative] Negative (06/05/2013 20:57:00) UA WBC [0-5 /HPF] 3 /HPF (06/05/2013 20:57:00) UA RBC [0-2 /HPF] 1 /HPF (06/05/2013 20:57:00) UA Bacteria [None Seen /HPF] Occasional /HPF *NA* (06/05/2013 20:57:00) UA Sq Epi [Few /LPF] Occasional /LPF *NA* (06/05/2013 20:57:00) VIRAL - SEROLOGY Most recent to oldest [Reference Range]: 1 Influ A [Negative] Negative (06/05/2013 20:41:00) Influ B [Negative] Negative 1 (06/05/2013 20:41:00) 1Interpretive Data: Influenza A&B Antigen: Due to the low sensitivity of this test a negative result does not exclude influ keith virus infection. A diagnosis of influenza should be considered based on a p atient's clinical presentation and empiric antiviral treatment should be conside red, if indicated. If more conclusive testing is desired, follow-up confirmatory testing with either viral culture or PCR is warranted. CHEMISTRY Most recent to oldest [Reference Range]: 1 Sodium Lvl [135-145 mEq/L] 142 mEq/L (06/05/2013:00) Potassium Lvl [3.5-5.1 mEq/L] 3.6 mEq/L (06/05/2013:00) Chloride Lvl [95-109 mEq/L] 106 mEq/L (06/05/201300) CO2 [24-32 mEq/L] 30 mEq/L (06/05/2013:00) AGAP [10.0-20.0 mEq/L] 9.6 mEq/L *LOW* (06/05/2013:00) Creatinine Lvl [0.5-1.4 mg/dL] 0.8 mg/dL (06/05/2013::00) eGFR 94 mL/min/1.73m2 2 *NA* (06/05/2013:00) BUN [7-22 mg/dL] 15 mg/dL (06/05/2013:00) B/C Ratio [6-25] 19 (06/05/2013::00) Glucose Lvl [70-99 mg/dL] 106 mg/dL 3 *HI* (06/05/2013::00) Total Protein [6.4-8.4 g/dL] 7.3 g/dL (06/05/2013:00) Albumin Lvl [3.5-5.0 g/dL] 3.9 g/dL (06/05/2013:00) Globulin [2.0-4.0 g/dL] 3.4 g/dL (06/05/2013:00) A/G Ratio [0.7-1.6] 1.1 (06/05/2013::00) Calcium Lvl [8.5-10.5 mg/dL] 8.7 mg/dL (06/05/2013:00) Magnesium Lvl [1.8-2.4 mg/dL] 2.0 mg/dL (06/05/2013:00) ALT [0-65 unit/L] 52 unit/L (06/05/2013:00) AST [0-37 unit/L] 18 unit/L (06/05/2013 20:30:00) Alk Phos [39-136 unit/L] 139 unit/L *HI* (06/05/2013::00) Bili Total [0.2-1.3 mg/dL] 0.2 mg/dL (06/05/2013:00) 2Result Comment: The eGFR is calculated using [...] values reflect the clinical guidelines of the [employer]. HEMATOLOGY Most recent to oldest [Reference Range]: 1 WBC [3.7-10.4 K/CMM] 4.2 K/CMM (06/05/201330:00) RBC [4.20-5.40 M/CMM] 3.89 M/CMM *LOW* (06/05/2013:) Hgb [12.0-16.0 g/dL] 12.0 g/dL (06/05/2013:00) Hct [36.0-48.0 %] 36.7 % (06/05/2013::00) MCV [81.0-99.0 fL] 94.2 fL (06/05/2013) MCH [27.0-31.0 pg] 30.8 pg (06/05/2013) MCHC [32.0-36.0 g/dL] 32.7 g/dL (06/05/2013:30:00) RDW [11.5-14.5 %] 14.2 % (06/05/2013 20:30:00) Platelet [133-450 K/CMM] 317 K/CMM (06/05/2013 20:30:00) MPV [7.4-10.4 fL] 9.0 fL (06/05/2013 20:30:00) Segs [45.0-75.0 %] 43.2 % *LOW* (06/05/2013 20:30:00) Lymphocytes [20.0-40.0 %] 46.9 % *HI* (06/05/2013 20:30:00) Monocytes [2.0-12.0 %] 6.8 % (06/05/2013 20:30:00) Eosinophils [0.0-4.0 %] 2.4 % (06/05/2013::00) Basophils [0.0-1.0 %] 0.7 % (06/05/2013 20:30:00) Segs-Bands # [1.5-8.1 K/CMM] 1.8 K/CMM (06/05/2013 20:30:00) Lymphocytes # [1.0-5.5 K/CMM] 1.9 K/CMM (06/05/2013 20:30:00) Monocytes # [0.0-0.8 K/CMM] 0.3 K/CMM (06/05/2013 20:30:00) Eosinophils # [0.0-0.5 K/CMM] 0.1 K/CMM (06/05/2013 20:30:00) Basophils # [0.0-0.2 K/CMM] 0.0 K/CMM (06/05/2013 20:30:00) Sed Rate [0-20 mm/hr] 25 mm/hr *HI* (06/05/2013 20:30:00) Microbiology Reports PROCEDURE:Culture: Urine STATUS: Auth (Verified) BODY SITE: COLLECTED DATE/TIME: 06/05/2013 21:19:00 SOURCE: Urine, Clean Catch FREE TEXT SOURCE: FINAL REPORTS Final Report 10,000 - 50,000 CFU/mL [place] PRELIMINARY REPORTS Preliminary Report No Growth; Holding PROCEDURE:Culture: Blood STATUS: Auth (Verified) BODY SITE: Left Hand COLLECTED DATE/TIME: 06/05/2013 16:26:00 SOURCE: Blood FREE TEXT SOURCE: FINAL REPORTS Final Report No Growth At 5 Days PRELIMINARY REPORTS Preliminary Report No Growth At 3 Days Preliminary Report No Growth; Holding Preliminary Report No Growth At 2 Days Preliminary Report No Growth At 4 Days Preliminary Report No Growth At 1 Day Procedures Procedures Date Related Diagnosis Foot joint operations Tonsil operation
--- OUTSIDE RECORDS SUMMARY | 2018-09-18 17:13 | XMS REPORT | CCD ---
Author Author Auto Generated Organization [facility] Address Unknown Phone Unavailable Care Team Providers Care Chemical Waste Management Technician Name Role Phone Sergo Stallworth CP Allergies, Adverse Reactions, Alerts Substance Reaction [...] date: 03/31/11 9:00:00, Stop date: 03/31/11 9:00:00 Sodium Chloride 0.9% 500 mL, Route: IV, Dosing Weight 07/08/2012 07/08/2012 Completed (Bolus) IV 59.091, kg, ONCE, Bolus Dose - infuse over 1 hr, STAT, Start date: 07/08/12 2:00:00, Stop date: 07/08/12 2:00:00 Zofran 4 mg, Route: IVP, 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, 07/08/2012 07/08/2012 Completed ONCE, Dosing Weight 59.091, kg, PRN Nausea, Priority: STAT, Start date: 07/08/12 2:00:00 morphine Sulfate 4 mg, Route: IV, ONCE, Dosing 07/08/2012 07/08/2012 Completed Weight 59.091, kg, Start date: 07/08/12 1:59:00, Stop date: 07/08/12 1:59:00 Dewy Rose 5/325 oral 1 tab, PO, Q4H, PRN, 12 tab, for 07/08/2012 Suspended tablet pain, Substitution Allowed, Maintenance, TAB Immunizations Vaccine Date Status Hx pneumococcal vaccine 12/29/2010 Auth (Verified) influenza virus vaccine, inactivated 03/31/2011 Not Done Vital Signs Most recent to oldest [Reference Range]: 1 Weight 59.091 kg (07/08/2012 01:25:00) Results URINALYSIS Most recent to oldest [Reference Range]: 1 UA Turbidity [Clear] Clear (07/08/2012 01:50:00) UA Color Isela *NA* (07/08/2012 01:50:00) UA pH [5.0-8.0] 6.0 (07/08/2012 01:50:00) UA Spec Grav [<=1.030] 1.009 (07/08/2012 01:50:00) UA Glucose [Negative mg/dL] Negative mg/dL *NA* (07/08/2012 01:50:00) UA Blood [Negative] Negative (07/08/2012 01:50:00) UA Ketones [Negative mg/dL] Negative mg/dL *NA* (07/08/2012 01:50:00) UA Protein [Negative mg/dL] Negative mg/dL (07/08/2012 01:50:00) UA Urobilinogen [0.1-1.0 mg/dL] 4.0 mg/dL *HI* (07/08/2012 01:50:00) UA Bili [Negative] Negative *NA* (07/08/2012 01:50:00) UA Leuk Est [Negative] Negative (07/08/2012 01:50:00) UA Nitrite [Negative] Positive *ABN* (07/08/2012 01:50:00) UA Sq Epi None Seen *NA* (07/08/2012 01:50:00) Microbiology Reports PROCEDURE:Culture: Urine STATUS: In Progress BODY SITE: COLLECTED DATE/TIME: 07/08/2012 04:23:00 SOURCE: Urine, Clean Catch FREE TEXT SOURCE: PRELIMINARY REPORTS Preliminary Report No Growth; Holding Procedures Procedures Date Related Diagnosis Gastric bypass operation
--- OUTSIDE RECORDS SUMMARY | 2018-09-18 17:14 | XMS REPORT | Summary of Care ---
Author Organization Unknown Address Unknown Phone Unavailable Encounter YOGI Andrea(MECHELLE) [id number] Date(s): 09/12/13 - 09/13/13 [facility] [address] [address] [place], [place] [id number] [place] [address] Discharge Diagnosis: Abdominal pain Discharge Disposition: Home Physician Attending: Antonio Hope MD Reason for Visit ABD PAIN Vital Signs 1 2 3 Most recent to oldest [Reference Range]: 167.64 cm (09/12/13 5:26 PM) Height 98.1 DegF (09/13/13 3:26 AM) 98.1 DegF (09/13/13 12:49 AM) 98.2 DegF (09/12/13 5:26 PM) Temperature Oral [96.4-99.1 DegF] 104 mmHg (09/13/13 3:26 AM) 98 mmHg (09/13/13 12:49 AM) 110 mmHg (09/12/13 11:10 PM) Systolic Blood Pressure [90-140 mmHg] 62 mmHg (09/13/13 3:26 AM) 50 mmHg *LOW* (09/13/13 12:49 AM) 64 mmHg (09/12/13 11:10 PM) Diastolic Blood Pressure [60-90 mmHg] 18 BRMIN (09/12/13 5:26 PM) Respiratory Rate [14-20 BRMIN] 100 bpm (09/12/13 5:26 PM) Peripheral Pulse Rate [60-100 bpm] 69.545 kg (09/12/13 5:26 PM) Weight 24.75 m2 (09/12/13 5:26 PM) Body Mass Index Problem List Condition Effective Dates Status Health Status Informant Abdominal Active pain(Confirmed) Anxiety(Confirmed) Active Anxiety(Confirmed) Active bipolar(Confirmed) Resolved Cancer(Confirmed)1 Resolved Cancer of Active cervix(Confirmed) Depression(Confirmed Active ) Female genital organ Active symptoms(Confirmed)2 Gastric bypass Active operation(Confirmed) high Resolved cholesterol(Confirme d) hx cerv Resolved cancer(Confirmed) hx gastric Resolved bypass(Confirmed) hypoglycemia(Confirm Resolved ed) Kidney Resolved infection(Confirmed) Laparoscopic Active procedure(Confirmed) Lumbar Fusion L3 Resolved S1(Confirmed) lumbar fusion Resolved surgery(Confirmed) Lumbar puncture Active headache(Confirmed) Lysis of Active adhesions(Confirmed) Malabsorption(Confir Resolved med) Migraine(Confirmed) Active Sinusitis(Confirmed) Active Ulcer(Confirmed) Active 1cervical 2CANCELLED Allergies, Adverse Reactions, Alerts Substance Reaction Severity Status aspirin Active Augmentin Active Food MSG Active Imitrex Active iodine Active Paper Tape Active shellfish Active Medications acetaminophen-hydrocodone 334 mg-5 mg/10 mL oral elixir 15 ml, PO, Q4H, for pain, # 60 mL, 0 Refill(s) Start Date: 09/13/13 Status: Ordered acetaminophen-oxycodone 325 mg-5 mg/5 mL oral solution 5 ml, PO, Q4H, for pain, # 480 mL, 0 Refill(s) Start Date: 09/13/13 Status: Ordered acetaminophen-oxycodone 325 mg-5 mg/5 mL oral solution 5 ml, PO, Q4H, for pain, # 480 mL, 0 Refill(s) Start Date: 09/13/13 Status: Ordered Cipro 500 mg oral tablet 500 mg=1 tab, PO, Q12H, # 28 tab, 0 Refill(s) Start Date: 09/13/13 Stop Date: 09/27/13 Status: Ordered ciprofloxacin 400 mg, 200 mL, Route: IVPB, 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, ONCE, Dosing Weight 69.545, kg, Kera ority: STAT, Start date: 09/13/13 0:15:00, Stop date: 09/13/13 0:15:00 Notes: Do not refrigerate Start Date: 09/13/13 Stop Date: 09/13/13 Status: Completed d50 syringe 12.5 gm, 25 mL, Route: IV, Drug Form: INJ, Dosing Weight 69.545, kg, ONCE, STAT, Start date: 09/12/13 23:34:00, Stop date: 09/12/13 23:34:00, 25 ml=12.5 gm Special Instructions: 25 ml=12.5 gm Start Date: 09/12/13 Stop Date: 09/13/13 Status: Completed Dilaudid 0.5 mg, 0.5 mL, Route: IV, 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, Q3H, Dosing Weight 69.545, kg, Start date: 09/12/13 23:00:00, Duration: 30 day, Stop date: 10/12/13 20:00:00 Start Date: 09/12/13 Stop Date: 09/13/13 Status: Discontinued famotidine 20 mg, 2 mL, Route: IVP, 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, ONCE, Dosing Weight 69.545, kg, Priorit y: STAT, Start date: 09/12/13 20:43:00, Stop date: 09/12/13 20:43:00 Notes: (Same as: Pepcid)Can be dilute in 5-10cc NS IVP: Slow IV push over at le ast 2 minutes. Start Date: 09/12/13 Stop Date: 09/12/13 Status: Completed [place] 10/325 oral tablet 1 tab, PO, Q4H, for pain, # 50 tab, 0 Refill(s) Start Date: 09/13/13 Status: Ordered [place] 5/325 oral tablet 1 tab, Route: PO, Dosing Weight 69.545, kg, ONCE, Start date: 09/13/13 2:44:00, Stop date: 09/13/13 2:44:00 Start Date: 09/13/13 Stop Date: 09/13/13 Status: Completed ondansetron 4 mg, 2 mL, Route: IVP, 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, ONCE, Dosing Weight 69.545, kg, Priority : STAT, Start date: 09/12/13 20:51:00, Stop date: 09/12/13 20:51:00 Notes: (Same as: Zofran) Start Date: 09/12/13 Stop Date: 09/12/13 Status: Completed promethazine + Sodium Chloride 0.9% IV 50 mL 25 mg, 1 mL, Route: IVPB, ONCE, Dosing Weight 69.545, kg, Priority: STAT, Start date: 09/12/13 20:51:00, Stop date: 09/12/13 20:51:00 Notes: Do not give IV push. (Same as: Phenergan) Start Date: 09/12/13 Stop Date: 09/12/13 Status: Completed promethazine 50 mg rectal suppository 50 mg=1 supp, FL, Q6H, Nausea & Vomiting, # 12 supp, 0 Refill(s) Start Date: 09/13/13 Status: Ordered Sodium Chloride 0.9% (Bolus) IV - - 1,000 mL, 1,000 ml/hr, Infuse Over: 1 hr, Route: IV, 1,000, 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, ONCE , Priority: STAT, Dosing Weight 69.545 kg, Start date: 09/12/13 20:50:00, Durati on: 1 doses or times, Stop date: 09/12/13 20:50:00 Start Date: 09/12/13 Stop Date: 09/12/13 Status: Completed Sodium Chloride 0.9% (Bolus) IV - - 1,000 mL, 1,000 ml/hr, Infuse Over: 1 hr, Route: IV, 1,000, 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, ONCE , Priority: STAT, Dosing Weight 69.545 kg, Start date: 09/12/13 20:50:00, Durati on: 1 doses or times, Stop date: 09/12/13 20:50:00 Start Date: 09/12/13 Stop Date: 09/12/13 Status: Completed Sodium Chloride 0.9% (Bolus) IV - - 1,000 mL, 1,000 ml/hr, Infuse Over: 1 hr, Route: IV, 1,000, 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, ONCE , Priority: STAT, Dosing Weight 69.545 kg, Start date: 09/12/13 23:34:00, Durati on: 1 doses or times, Stop date: 09/12/13 23:34:00 Start Date: 09/12/13 Stop Date: 09/12/13 Status: Completed Sodium Chloride 0.9% IV 1,000 mL 1,000 mL, Rate: 75 ml/hr, Infuse over: 13.3 hr, Route: IV, Dosing Weight 69.545 kg, Total Volume: 1,000, Priority: STAT, Start date: 09/12/13 20:50:00, Duration : 1 doses or times, Stop date: 09/13/13 10:07:00 Start Date: 09/12/13 Stop Date: 09/13/13 Status: Discontinued Zofran ODT 8 mg oral tablet, disintegrating 8 mg=1 tab, PO, TID, Nausea and Vomiting, Dissolve tab under tongue, # 10 tab, 0 Refill(s) Special Instructions: Dissolve tab under tongue Start Date: 09/13/13 Status: Ordered Results BLOOD BANK RESULTS Most recent to 1 2 oldest [Reference Range]: ABO/Rh O POS *Unknown* (09/12/13 9:45 PM) Antibody Scrn Negative (09/12/13 9:45 PM) ELECTROLYTES Most recent to 1 2 oldest [Reference Range]: Sodium Lvl [135-145 141 mEq/L 136 mEq/L mEq/L] (09/12/13 10:45 PM) (09/12/13 9:45 PM) Potassium Lvl 3.6 mEq/L 3.9 mEq/L [3.5-5.1 mEq/L] (09/12/13 10:45 PM) (09/12/13 10:45 PM) Potassium Lvl See Note 1, 2 [3.5-5.1] (09/12/13 9:45 PM) Chloride Lvl [95-109 105 mEq/L 101 mEq/L mEq/L] (09/12/13 10:45 PM) (09/12/13 9:45 PM) CO2 [24-32 mEq/L] 27 mEq/L 30 mEq/L (09/12/13 10:45 PM) (09/12/13 9:45 PM) AGAP [10.0-20.0 12.9 mEq/L 13.6 mEq/L mEq/L] (09/12/13 10:45 PM) (09/12/13 9:45 PM) 1Result Comment: Sample is hemolyzed. Recollect to obtain potassium result. Correction called to Calli at 09/12/2013 23:25 by hb. Critical Result(s) called to SILAS OVALLES at 09/12/2013 22:42 by CV. Read back OK. Note: Sample is hemolyzed notified CHASE at 09/12/2013 22:42. 2Result Comment: Critical Result(s) called to SILAS OVALLES at 09/12/2013 22:42 by CV. Read back OK. Note: Sample is hemolyzed notified CHASE at 09/12/2013 22:42. CHEM PANEL Most recent to 1 2 oldest [Reference Range]: Creatinine Lvl 0.7 mg/dL <0.1 mg/dL [0.5-1.4 mg/dL] (09/12/13 10:45 PM) (09/12/13 9:45 PM) eGFR 111 mL/min/1.73m2 3 *NA* (09/12/13 10:45 PM) eGFR See Note 4 (09/12/13 9:45 PM) BUN [7-22 mg/dL] 9 mg/dL 11 mg/dL (09/12/13 10:45 PM) (09/12/13 9:45 PM) B/C Ratio [6-25] See Note 5 (09/12/13 9:45 PM) Glucose Lvl [70-99 126 mg/dL 6 63 mg/dL 7 mg/dL] *HI* *LOW* (09/12/13 10:45 PM) (09/12/13 9:45 PM) Total Protein 7.9 g/dL [6.4-8.4 g/dL] (09/12/13 9:45 PM) Albumin Lvl [3.5-5.0 3.9 g/dL g/dL] (09/12/13 9:45 PM) Globulin [2.0-4.0 4.0 g/dL g/dL] (09/12/13 9:45 PM) A/G Ratio [0.7-1.6] 1.0 (09/12/13 9:45 PM) Calcium Lvl 8.6 mg/dL 8.6 mg/dL [8.5-10.5 mg/dL] (09/12/13 10:45 PM) (09/12/13 9:45 PM) Phosphorus [2.5-4.5 5.3 mg/dL mg/dL] *HI* (09/12/13 9:45 PM) Magnesium Lvl 1.9 mg/dL [1.8-2.4 mg/dL] (09/12/13 9:45 PM) ALT [0-65 unit/L] 119 unit/L *NA* (09/12/13 9:45 PM) AST [0-37 unit/L] 82 unit/L *NA* (09/12/13 9:45 PM) Alk Phos [39-136 225 unit/L unit/L] *HI* (09/12/13 9:45 PM) Bili Total [0.2-1.3 <0.1 mg/dL mg/dL] (09/12/13 9:45 PM) Bili Direct [0.0-0.3 <0.1 mg/dL mg/dL] (09/12/13 9:45 PM) Amylase Lvl [25-115 29 unit/L unit/L] (09/12/13 9:45 PM) Lipase Lvl [73-393 92 unit/L unit/L] (09/12/13 9:45 PM) 3Result Comment: The eGFR is calculated using the [...] be mul tiplied by the estimated BMI. 4Result Comment: The eGFR result of 889 should be interpreted with caution due to Hemolyzed Sample. Report called to Silas Ovalles by CV at 09/12/2013 22:58. Recollection is recommended. Read Back Ok. 5Result Comment: BUN/Cre is 110. Result may not be accurate. Redraw is recommended due to sample is hemolyzed. Notified Karen Ovalles at 09/12/2013 22:42 6Interpretive Data: Adult reference range values reflect the clinical guidelines of the [place] [employer]. 7Interpretive Data: Adult reference range values reflect the clinical guidelines of the [place] [employer]. ANEMIA STUDY Most recent to 1 2 oldest [Reference Range]: Iron [30-160 ug/dl] 41 ug/dl (09/12/13 9:45 PM) % Satur Fe [12-57 %] 10 % *LOW* (09/12/13 9:45 PM) UIBC [110-370 ug/dl] 374 ug/dl *HI* (09/12/13 9:45 PM) Vitamin B12 Lvl 158 pg/mL [254-1320 pg/mL] *LOW* (09/12/13 9:45 PM) TIBC [228-428 ug/dl] 415 ug/dl (09/12/13 9:45 PM) URINE CHEM Most recent to 1 2 oldest [Reference Range]: U Preg [Negative] Negative (09/12/13 5:35 PM) URINE AND STOOL Most recent to 1 2 oldest [Reference Range]: UA Turbidity [Clear] Clear (09/12/13 5:35 PM) UA Color Ltyellow *NA* (09/12/13 5:35 PM) UA pH [5.0-8.0] 7.0 (09/12/13 5:35 PM) UA Spec Grav 1.006 [<=1.030] (09/12/13 5:35 PM) UA Glucose [Negative Negative mg/dL mg/dL] *NA* (09/12/13 5:35 PM) UA Blood [Negative] Negative (09/12/13 5:35 PM) UA Ketones [Negative Negative mg/dL mg/dL] *NA* (09/12/13 5:35 PM) UA Protein [Negative Negative mg/dL mg/dL] (09/12/13 5:35 PM) UA Urobilinogen <=1.0 mg/dL [0.1-1.0 mg/dL] *NA* (09/12/13 5:35 PM) UA Bili [Negative] Negative *NA* (09/12/13 5:35 PM) UA Leuk Est Large [Negative] *ABN* (09/12/13 5:35 PM) UA Nitrite Negative [Negative] (09/12/13 5:35 PM) UA WBC [0-5 /HPF] 29 /HPF *HI* (09/12/13 5:35 PM) UA RBC [0-2 /HPF] <1 /HPF (09/12/13 5:35 PM) UA Sq Epi [Few /LPF] Occasional /LPF *NA* (09/12/13 5:35 PM) HEMATOLOGY Most recent to 1 2 oldest [Reference Range]: WBC [3.7-10.4 K/CMM] 4.7 K/CMM (09/12/13 9:45 PM) RBC [4.20-5.40 3.66 M/CMM M/CMM] *LOW* (09/12/13 9:45 PM) Hgb [12.0-16.0 g/dL] 11.6 g/dL *LOW* (09/12/13 9:45 PM) Hct [36.0-48.0 %] 35.2 % *LOW* (09/12/13 9:45 PM) MCV [81.0-99.0 fL] 96.0 fL (09/12/13 9:45 PM) MCH [27.0-31.0 pg] 31.8 pg *HI* (09/12/13 9:45 PM) MCHC [32.0-36.0 33.1 g/dL g/dL] (09/12/13 9:45 PM) RDW [11.5-14.5 %] 14.4 % (09/12/13 9:45 PM) Platelet [133-450 302 K/CMM K/CMM] (09/12/13 9:45 PM) MPV [7.4-10.4 fL] 10.5 fL *HI* (09/12/13 9:45 PM) Segs [45.0-75.0 %] 48.8 % (09/12/13 9:45 PM) Lymphocytes 37.3 % [20.0-40.0 %] (09/12/13 9:45 PM) Monocytes [2.0-12.0 6.0 % %] (09/12/13 9:45 PM) Eosinophils [0.0-4.0 7.1 % %] *HI* (09/12/13 9:45 PM) Basophils [0.0-1.0 0.8 % %] (09/12/13 9:45 PM) Segs-Bands # 2.3 K/CMM [1.5-8.1 K/CMM] (09/12/13 9:45 PM) Lymphocytes # 1.7 K/CMM [1.0-5.5 K/CMM] (09/12/13 9:45 PM) Monocytes # [0.0-0.8 0.3 K/CMM K/CMM] (09/12/13 9:45 PM) Eosinophils # 0.3 K/CMM [0.0-0.5 K/CMM] (09/12/13 9:45 PM) Basophils # [0.0-0.2 0.0 K/CMM K/CMM] (09/12/13 9:45 PM) RBC Morph Normal (09/12/13 9:45 PM) Plt Morph Normal (09/12/13 9:45 PM) Retic Auto [0.5-1.5 1.1 % %] (09/12/13 9:45 PM) PT [12.0-14.7 12.7 seconds seconds] (09/12/13 9:45 PM) INR [0.85-1.17] 0.96 8 (09/12/13 9:45 PM) PTT [22.9-35.8 30.3 seconds 9 seconds] (09/12/13 9:45 PM) 8Interpretive Data: RECOMMENDED RANGES FOR PROTIME INR: 2.0-3.0 for most medical and surgical thromboembolic states. 2.5-3.5 for artificial heart valves and recurrent embolism. INR SHOULD BE USED ONLY FOR PATIENTS ON STABLE ANTICOAGULANT THERAPY. 9Interpretive Data: Heparin Therapeutic Range: 57 - 92 Seconds Medications Administered During Your Visit No data available for this section Immunizations Vaccine Date Refusal Reason Hx pneumococcal vaccine 12/29/10 influenza virus vaccine, inactivated 07/18/12 Social History Social History Type Response Alcohol Previous treatment: None Smoking Status Former smoker, Type: Cigarettes, Exposure to Tobacco Smoke None, Cigarette Smoking Last 365 Days No, Reg Smoking Cessation Counseling No
--- OUTSIDE RECORDS SUMMARY | 2018-09-18 17:14 | XMS REPORT | Summary of Care ---
Author Organization Unknown Address Unknown Phone Unavailable Encounter YOGI Andrea(MECHELLE) [id number] Date(s): 08/31/13 - 09/01/13 [facility] [address] [place], [place] [id number] [place] [address] Discharge Diagnosis: abdominal pain/elevated lft's Discharge Disposition: Home Physician Attending: Antonio Riojas Reason for Visit VOMITING/ABD PAIN/SWELLING ABD Vital Signs 1 2 3 Most recent to oldest [Reference Range]: 97.1 DegF (09/01/13 7:06 AM) 97.2 DegF (09/01/13 5:00 AM) 97.6 DegF (08/31/13 11:30 PM) Temperature Oral [96.4-99.1 DegF] 129 mmHg (09/01/13 5:00 AM) 127 mmHg (09/01/13 3:00 AM) 138 mmHg (09/01/13 1:00 AM) Systolic Blood Pressure [90-140 mmHg] 82 mmHg (09/01/13 5:00 AM) 80 mmHg (09/01/13 3:00 AM) 96 mmHg *HI* (09/01/13 1:00 AM) Diastolic Blood Pressure [60-90 mmHg] 18 BRMIN (09/01/13 5:00 AM) 18 BRMIN (09/01/13 3:00 AM) 18 BRMIN (09/01/13 1:00 AM) Respiratory Rate [14-20 BRMIN] 87 bpm (09/01/13 5:00 AM) 70 bpm (09/01/13 3:00 AM) 72 bpm (09/01/13 1:00 AM) Peripheral Pulse Rate [60-100 bpm] 63.636 kg (08/31/13 11:30 PM) Weight Problem List Condition Effective Dates Status Health [...] Paper Tape Active shellfish Active Medications acetaminophen-hydrocodone 325 mg-10 mg oral tablet 1 tab, Route: PO, Drug Form: TAB, Dosing Weight 63.636, kg, ONCE, STAT, Start da te: 09/01/13 6:29:00, Stop date: 09/01/13 6:29:00 Notes: Do not exceed 4gm/day of acetaminophen. (Same as: [place] 325/10) Start Date: 09/01/13 Stop Date: 09/01/13 Status: Completed diphenhydrAMINE 12.5 mg, 0.25 mL, Route: IVP, 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, ONCE, Dosing Weight 63.636, kg, Pr iority: STAT, Start date: 09/01/13 2:45:00, Stop date: 09/01/13 2:45:00 Notes: (Same as: Benadryl) Start Date: 09/01/13 Stop Date: 09/01/13 Status: Completed hydromorphone 0.5 mg, 0.5 mL, Route: IVP, 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, ONCE, Dosing Weight 63.636, kg, Prio rity: STAT, Start date: 09/01/13 0:43:00, Stop date: 09/01/13 0:43:00 Start Date: 09/01/13 Stop Date: 09/01/13 Status: Completed metoclopramide 10 mg, 2 mL, Route: IVP, 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, ONCE, Dosing Weight 63.636, kg, Priorit y: STAT, Start date: 09/01/13 0:43:00, Stop date: 09/01/13 0:43:00 Notes: (Same as: Reglan) Start Date: 09/01/13 Stop Date: 09/01/13 Status: Completed ondansetron 4 mg, 1 tab, Route: PO, Drug form: TABDIS, ONCE, Dosing Weight 63.636, kg, Prior ity: STAT, Start date: 09/01/13 6:29:00, Stop date: 09/01/13 6:29:00 Notes: (Same as: Zofran ODT) Start Date: 09/01/13 Stop Date: 09/01/13 Status: Completed ondansetron 4 mg, 2 mL, Route: IVP, 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, ONCE, Dosing Weight 63.636, kg, Priority : STAT, Start date: 09/01/13 0:43:00, Stop date: 09/01/13 0:43:00 Notes: (Same as: Zofran) Start Date: 09/01/13 Stop Date: 09/01/13 Status: Completed pantoprazole 40 mg oral enteric coated tablet 40 mg=1 tab, PO, Daily, # 30 tab, 0 Refill(s) Start Date: 09/01/13 Status: Suspended promethazine 6.25 mg/5 mL oral syrup 18.75 mg=15 mL, PO, QID, as needed for nausea/vomiting, # 500 mL, 0 Refill(s) Start Date: 09/01/13 Status: Suspended Sodium Chloride 0.9% (Bolus) IV - - 1,000 mL, 1,000 ml/hr, Infuse Over: 1 hr, Route: IV, 1,000, 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, ONCE , Priority: STAT, Dosing Weight 63.636 kg, Start date: 09/01/13 0:43:00, Duratio n: 1 doses or times, Stop date: 09/01/13 0:43:00 Start Date: 09/01/13 Stop Date: 09/01/13 Status: Completed Solu-MEDROL 125 mg, 2 mL, Route: IVP, 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, ONCE, Dosing Weight 63.636, kg, Priori ty: STAT, Start date: 09/01/13 2:45:00, Stop date: 09/01/13 2:45:00 Notes: (Same as:Solu-MEDROL, A-Methapred) Start Date: 09/01/13 Stop Date: 09/01/13 Status: Completed Results ELECTROLYTES Most recent to 1 oldest [Reference Range]: Sodium Lvl [135-145 139 mEq/L mEq/L] (09/01/13 2:00 AM) Potassium Lvl 3.4 mEq/L [3.5-5.1 mEq/L] *LOW* (09/01/13 2:00 AM) Chloride Lvl [95-109 105 mEq/L mEq/L] (09/01/13 2:00 AM) CO2 [24-32 mEq/L] 25 mEq/L (09/01/13 2:00 AM) AGAP [10.0-20.0 12.4 mEq/L mEq/L] (09/01/13 2:00 AM) CHEM PANEL Most recent to 1 oldest [Reference Range]: Creatinine Lvl 0.7 mg/dL [0.5-1.4 mg/dL] (09/01/13 2:00 AM) eGFR 111 mL/min/1.73m2 1 *NA* (09/01/13 2:00 AM) BUN [7-22 mg/dL] 12 mg/dL (09/01/13 2:00 AM) B/C Ratio [6-25] 17 (09/01/13 2:00 AM) Glucose Lvl [70-99 95 mg/dL 2 mg/dL] (09/01/13 2:00 AM) Total Protein 6.9 g/dL [6.4-8.4 g/dL] (09/01/13 2:00 AM) Albumin Lvl [3.5-5.0 3.8 g/dL g/dL] (09/01/13 2:00 AM) Globulin [2.0-4.0 3.1 g/dL g/dL] (09/01/13 2:00 AM) A/G Ratio [0.7-1.6] 1.2 (09/01/13 2:00 AM) Calcium Lvl 8.9 mg/dL [8.5-10.5 mg/dL] (09/01/13 2:00 AM) ALT [0-65 unit/L] 535 unit/L *HI* (09/01/13 2:00 AM) AST [0-37 unit/L] 219 unit/L *HI* (09/01/13 2:00 AM) Alk Phos [39-136 314 unit/L unit/L] *HI* (09/01/13 2:00 AM) Bili Total [0.2-1.3 0.1 mg/dL mg/dL] *LOW* (09/01/13 2:00 AM) 1Result Comment: The eGFR is calculated using [...] values reflect the clinical guidelines of the [place] [employer]. URINE CHEM Most recent to 1 oldest [Reference Range]: U Preg [Negative] Negative (08/31/13 11:50 PM) URINE AND STOOL Most recent to 1 oldest [Reference Range]: UA Turbidity [Clear] Clear (08/31/13 11:50 PM) UA Color Ltyellow *NA* (08/31/13 11:50 PM) UA pH [5.0-8.0] 5.0 (08/31/13 11:50 PM) UA Spec Grav 1.014 [<=1.030] (08/31/13 11:50 PM) UA Glucose [Negative Negative mg/dL mg/dL] *NA* (08/31/13 11:50 PM) UA Blood [Negative] Negative (08/31/13 11:50 PM) UA Ketones [Negative Negative mg/dL mg/dL] *NA* (08/31/13 11:50 PM) UA Protein [Negative Negative mg/dL mg/dL] (08/31/13 11:50 PM) UA Urobilinogen <=1.0 mg/dL [0.1-1.0 mg/dL] *NA* (08/31/13 11:50 PM) UA Bili [Negative] Negative *NA* (08/31/13 11:50 PM) UA Leuk Est Trace [Negative] *ABN* (08/31/13 11:50 PM) UA Nitrite Negative [Negative] (08/31/13 11:50 PM) UA WBC [0-5 /HPF] 1 /HPF (08/31/13 11:50 PM) UA RBC [0-2 /HPF] 1 /HPF (08/31/13 11:50 PM) UA Sq Epi [Few /LPF] Occasional /LPF *NA* (08/31/13 11:50 PM) HEMATOLOGY Most recent to 1 oldest [Reference Range]: WBC [3.7-10.4 K/CMM] 3.1 K/CMM *LOW* (09/01/13 2:00 AM) RBC [4.20-5.40 3.58 M/CMM M/CMM] *LOW* (09/01/13 2:00 AM) Hgb [12.0-16.0 g/dL] 11.4 g/dL *LOW* (09/01/13 2:00 AM) Hct [36.0-48.0 %] 33.8 % *LOW* (09/01/13 2:00 AM) MCV [81.0-99.0 fL] 94.3 fL (09/01/13 2:00 AM) MCH [27.0-31.0 pg] 31.7 pg *HI* (09/01/13 2:00 AM) MCHC [32.0-36.0 33.6 g/dL g/dL] (09/01/13 2:00 AM) RDW [11.5-14.5 %] 13.7 % (09/01/13 2:00 AM) Platelet [133-450 263 K/CMM K/CMM] (09/01/13 2:00 AM) MPV [7.4-10.4 fL] 10.1 fL (09/01/13 2:00 AM) Segs [45.0-75.0 %] 16.9 % *LOW* (09/01/13 2:00 AM) Lymphocytes 66.6 % [20.0-40.0 %] *HI* (09/01/13 2:00 AM) Monocytes [2.0-12.0 8.1 % %] (09/01/13 2:00 AM) Eosinophils [0.0-4.0 7.7 % %] *HI* (09/01/13 2:00 AM) Basophils [0.0-1.0 0.7 % %] (09/01/13 2:00 AM) Segs-Bands # 0.5 K/CMM [1.5-8.1 K/CMM] *LOW* (09/01/13 2:00 AM) Lymphocytes # 2.1 K/CMM [1.0-5.5 K/CMM] (09/01/13 2:00 AM) Monocytes # [0.0-0.8 0.2 K/CMM K/CMM] (09/01/13 2:00 AM) Eosinophils # 0.2 K/CMM [0.0-0.5 K/CMM] (09/01/13 2:00 AM) Basophils # [0.0-0.2 0.0 K/CMM K/CMM] (09/01/13 2:00 AM) Medications Administered During Your Visit No data [...]
--- OUTSIDE RECORDS SUMMARY | 2018-09-18 17:14 | XMS REPORT | Summary of Care ---
Author Organization Unknown Address Unknown Phone Unavailable Encounter [facility](MECHELLE) [id number] Date(s): 09/18/13 - 09/24/13 [facility] [id number] [address] Discharge Disposition: Home Physician Attending: Corey Bolaños MD Physician Admitting: Corey Bolaños MD Reason for Visit ABD PAIN Vital Signs 1 2 3 Most recent to oldest [Reference Range]: 167.64 cm (09/18/13 5:44 PM) Height 98.3 DegF (09/24/13 8:03 AM) 98.1 DegF (09/24/13 4:45 AM) 98.2 DegF (09/24/13 12:35 AM) Temperature Oral [96.4-99.1 DegF] 115 mmHg (09/24/13 8:03 AM) 112 mmHg (09/24/13 4:45 AM) 114 mmHg (09/24/13 12:35 AM) Systolic Blood Pressure [90-140 mmHg] 77 mmHg (09/24/13 8:03 AM) 75 mmHg (09/24/13 4:45 AM) 73 mmHg (09/24/13 12:35 AM) Diastolic Blood Pressure [60-90 mmHg] 16 BRMIN (09/24/13 8:03 AM) 16 BRMIN (09/24/13 4:45 AM) 16 BRMIN (09/24/13 12:35 AM) Respiratory Rate [14-20 BRMIN] 108 bpm *HI* (09/24/13 8:03 AM) 92 bpm (09/24/13 4:45 AM) 97 bpm (09/24/13 12:35 AM) Peripheral Pulse Rate [60-100 bpm] 65.455 kg (09/18/13 5:44 PM) Weight 23.29 m2 (09/18/13 5:44 PM) Body Mass Index Problem List Condition Effective Dates Status Health Status Informant Abdominal Active pain(Confirmed) Anxiety(Confirmed) Active Anxiety(Confirmed) Active Biopsy of Active liver(Confirmed) bipolar(Confirmed) Resolved Cancer(Confirmed)1 Resolved Cancer of Active [...] Active Paper Tape Active shellfish Active Medications acetaminophen 650 mg, 2 tab, Route: PO, Drug form: TAB, Q4H, Dosing Weight 69.545, kg, PRN An n 1-3/Temp > 100.4 F, Start date: 09/18/13 16:39:00, Duration: 30 day, Stop date: 10/18/13 16:38:00 Notes: Do not exceed 4 gm/day. (Same as: Tylenol) Start Date: 09/18/13 Stop Date: 09/24/13 Status: Discontinued Ambien 10 mg, 1 tab, Route: PO, Drug form: TAB, Bedtime, Dosing Weight 65.455, kg, Star t date: 09/18/13 21:00:00, Duration: 30 day, Stop date: 10/17/13 21:00:00 Notes: (Same As: Ambien) Start Date: 09/18/13 Stop Date: 09/24/13 Status: Discontinued Ativan 1 mg, 1 tab, Route: PO, Drug form: TAB, QID, Dosing Weight 65.455, kg, PRN Anxie ty, Start date: 09/23/13 20:42:00, Duration: 30 day, Stop date: 10/23/13 20:41:0 0 Notes: (Same as: Ativan) Start Date: 09/23/13 Stop Date: 09/24/13 Status: Discontinued Ativan 1 mg, 0.5 mL, Route: IVP, 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, Q6H, Dosing Weight 65.455, kg, PRN Anx iety, Start date: 09/21/13 6:18:00, Duration: 30 day, Stop date: 10/21/13 6:17:0 0 Notes: (Same as: Ativan) Start Date: 09/21/13 Stop Date: 09/23/13 Status: Discontinued CeleXA 20 mg, 1 tab, Route: PO, Drug form: TAB, Daily, Dosing Weight 65.455, kg, Start date: 09/19/13 9:00:00, Duration: 30 day, Stop date: 10/18/13 9:00:00 Notes: (Same As: CeleXA) Start Date: 09/19/13 Stop Date: 09/24/13 Status: Discontinued chlordiazePOXIDE 25 mg oral capsule 25 mg, 1 cap, Route: PO, Drug form: CAP, QID, Dosing Weight 65.455, kg, Start da te: 09/18/13 21:00:00, Duration: 30 day, Stop date: 10/18/13 17:00:00 Start Date: 09/18/13 Stop Date: 09/24/13 Status: Discontinued D5W 1/2NS + KCL 20mEq/L 1000ml (Premix) 1,000 mL 1,000 mL, Rate: 100 ml/hr, Infuse over: 10 hr, Route: IV, Dosing Weight 69.545 k g, Total Volume: 1,000, Start date: 09/18/13 16:39:00, Duration: 30 day, Stop da te: 10/18/13 16:38:00 Notes: PREMIX IV - Do Not Alter Start Date: 09/18/13 Stop Date: 09/23/13 Status: Discontinued Dextrose 50% Syringe 25 gm, 50 mL, Route: IV, Drug Form: INJ, Dosing Weight 65.455, kg, PRN, PRN Bloo d Glucose Results, Start date: 09/20/13 13:48:00, Duration: 30 day, Stop date: 0 10/20/13 13:47:00, blood sugar <50 Start Date: 09/20/13 Stop Date: 09/24/13 Status: Discontinued Dilaudid 1 mg, 1 mL, Route: IV, 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, Q3H, Dosing Weight 69.545, kg, PRN Pain S core 7-10, Start date: 09/18/13 16:45:00, Duration: 30 day, Stop date: 10/18/13 16:44:00 Start Date: 09/18/13 Stop Date: 09/23/13 Status: Discontinued docusate 100 mg, 1 cap, Route: PO, Drug form: CAP, BID, Dosing Weight 69.545, kg, PRN as needed for constipation, Start date: 09/18/13 16:39:00, Duration: 30 day, Stop d ate: 10/18/13 16:38:00 Notes: (Same as: Colace) (Do Not Crush) Start Date: 09/18/13 Stop Date: 09/24/13 Status: Discontinued hydrOXYzine 25 mg, 1 cap, Route: PO, Drug form: CAP, Bedtime, Dosing Weight 65.455, kg, PRN Sleep, Start date: 09/18/13 20:57:00, Duration: 30 day, Stop date: 10/18/13 20:5 6:00 Notes: (Same as: Vistaril) Start Date: 09/18/13 Stop Date: 09/24/13 Status: Discontinued magnesium citrate 150 ml, Route: PO, Drug Form: LIQ, Dosing Weight 65.455, kg, ONCE, Start date: 0 09/21/13 17:59:00, Stop date: 09/21/13 17:59:00 Notes: (Same as: Citrate of Magnesia) Start Date: 09/21/13 Stop Date: 09/21/13 Status: Completed MiraLax 17 gm, 1 pkt, Route: PO, Drug form: PWDR, BID, Dosing Weight 65.455, kg, PRN Con stipation, Start date: 09/19/13 17:05:00, Duration: 30 day, Stop date: 10/19/13 17:04:00 Notes: Dissolve in 8 oz of water or juice.(Same as: Miralax) Start Date: 09/19/13 Stop Date: 09/24/13 Status: Discontinued [place] 10/325 oral tablet 1 tab, PO, Q4H, for pain, # 50 tab, 0 Refill(s) Start Date: 09/24/13 Status: Ordered [place] 5/325 oral tablet 2 tab, Route: PO, Drug Form: TAB, Dosing Weight 65.455, kg, Q4H, PRN Pain Score 6-10, Start date: 09/23/13 6:43:00, Stop date: 10/23/13 6:42:00 Notes: (Same as: [place] 325/5) Do not exceed 4gm/day of acetaminophen. Start Date: 09/23/13 Stop Date: 09/24/13 Status: Discontinued pantoprazole 40 mg, 1 tab, Route: PO, Drug form: ECTAB, Before Breakfast, Dosing Weight 65.45 5, kg, Start date: 09/21/13 7:30:00, Duration: 30 day, Stop date: 10/20/13 7:30: 00 Notes: Tablet should not be chewed or crushed.(Same as: Protonix) Start Date: 09/21/13 Stop Date: 09/23/13 Status: Discontinued pantoprazole 40 mg, 1 tab, Route: PO, Drug form: ECTAB, BID, Dosing Weight 65.455, kg, Start date: 09/24/13 9:00:00, Duration: 30 day, Stop date: 10/23/13 17:00:00 Notes: Tablet should not be chewed or crushed.(Same as: Protonix) Start Date: 09/24/13 Stop Date: 09/24/13 Status: Discontinued Pepcid 40 mg, 1 tab, Route: PO, Drug form: TAB, Bedtime, Start date: 09/23/13 21:00:00, Duration: 30 day, Stop date: 10/22/13 21:00:00 Notes: (Same as: Pepcid) Start Date: 09/23/13 Stop Date: 09/24/13 Status: Discontinued Phenergan 25 mg, 1 supp, Route: PA, Drug form: SUPP, Q4H, Dosing Weight 65.455, kg, PRN Na usea & Vomiting, Start date: 09/19/13 17:05:00, Duration: 30 day, Stop date: 10/19/13 17:04:00 Notes: (Same as: Phenergan) Start Date: 09/19/13 Stop Date: 09/24/13 Status: Discontinued Phenergan 12.5 mg, 1 tab, Route: PO, Drug form: TAB, Q4H, Dosing Weight 65.455, kg, PRN Na usea & Vomiting, Start date: 09/23/13 17:34:00, Duration: 30 day, Stop date: 10/23/13 17:33:00 Notes: (Same as: Phenergan) Start Date: 09/23/13 Stop Date: 09/24/13 Status: Discontinued Phenergan + Sodium Chloride 0.9% IV 50 mL 12.5 mg, 0.5 mL, Route: IVPB, Q4H, Dosing Weight 65.455, kg, PRN Nausea & Vomiting, Start date: 09/19/13 21:43:00, Duration: 30 day, Stop date: 10/19/13 21:42:00 Notes: Do not give IV push. (Same as: Phenergan) Start Date: 09/19/13 Stop Date: 09/23/13 Status: Discontinued Phenergan + Sodium Chloride 0.9% IV 50 mL 12.5 mg, 0.5 mL, Route: IVPB, Q6H, Dosing Weight 65.455, kg, PRN Nausea & Vomiting, Start date: 09/19/13 5:53:00, Duration: 30 day, Stop date: 10/19/13 5 :52:00 Notes: Do not give IV push. (Same as: Phenergan) Start Date: 09/19/13 Stop Date: 09/23/13 Status: Discontinued Phenergan + Sodium Chloride 0.9% IV 50 mL 12.5 mg, 0.5 mL, Route: IVPB, Q4H, Dosing Weight 65.455, kg, PRN Nausea & Vomiting, Start date: 09/18/13 21:15:00, Duration: 30 day, Stop date: 10/18/13 21:14:00 Notes: Do not give IV push. (Same as: Phenergan) Start Date: 09/18/13 Stop Date: 09/19/13 Status: Discontinued promethazine 25 mg rectal suppository 25 mg=1 supp, PA, Q4H, Nausea & Vomiting, # 10 supp, 0 Refill(s) Start Date: 09/24/13 Status: Ordered Protonix 40 mg, Route: IVP, 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, Daily, Dosing Weight 69.545, kg, Patient is N PO, Start date: 09/19/13 9:00:00, Duration: 30 day, Stop date: 10/18/13 9:00:00 Notes: For IV push reconstitute with 10 ml 0.9% sodium chloride and push over 2 minutes. (Same as: Protonix) Start Date: 09/19/13 Stop Date: 09/20/13 Status: Discontinued Saline Flush 0.9% 5 ml, Route: IVP, Drug Form: INJ, Dosing Weight 69.545, kg, PRN, PRN Line Flush, Start date: 09/18/13 16:39:00, Duration: 30 day, Stop date: 10/18/13 16:38:00 Notes: (Same as: BD Posiflush) Start Date: 09/18/13 Stop Date: 09/23/13 Status: Discontinued temazepam 30 mg, 2 cap, Route: PO, Drug form: CAP, Bedtime, Dosing Weight 69.545, kg, PRN Sleep, Start date: 09/18/13 16:46:00, Duration: 30 day, Stop date: 10/18/13 16:4 5:00 Notes: (Same As: Restoril) Start Date: 09/18/13 Stop Date: 09/18/13 Status: Discontinued Zantac 300 300 mg, Route: PO, Drug form: TAB, Bedtime, Dosing Weight 65.455, kg, Start date : 09/23/13 21:00:00, Duration: 30 day, Stop date: 10/22/13 21:00:00 Start Date: 09/23/13 Stop Date: 09/23/13 Status: Deleted Results ELECTROLYTES Most recent to 1 oldest [Reference Range]: Sodium Lvl [135-145 136 mEq/L mEq/L] (09/18/13 8:58 PM) Potassium Lvl 3.5 mEq/L [3.5-5.1 mEq/L] (09/18/13 8:58 PM) Chloride Lvl [95-109 102 mEq/L mEq/L] (09/18/13 8:58 PM) CO2 [24-32 mEq/L] 25 mEq/L (09/18/13 8:58 PM) AGAP [10.0-20.0 12.5 mEq/L mEq/L] (09/18/13 8:58 PM) CHEM PANEL Most recent to 1 oldest [Reference Range]: Creatinine Lvl 0.7 mg/dL [0.5-1.4 mg/dL] (09/18/13 8:58 PM) eGFR 111 mL/min/1.73m2 1 *NA* (09/18/13 8:58 PM) BUN [7-22 mg/dL] 12 mg/dL (09/18/13 8:58 PM) B/C Ratio [6-25] 17 (09/18/13 8:58 PM) Glucose Lvl [70-99 90 mg/dL 2 mg/dL] (09/18/13 8:58 PM) Total Protein 7.1 g/dL [6.4-8.4 g/dL] (09/18/13 8:58 PM) Albumin Lvl [3.5-5.0 4.0 g/dL g/dL] (09/18/13 8:58 PM) Globulin [2.0-4.0 3.1 g/dL g/dL] (09/18/13 8:58 PM) A/G Ratio [0.7-1.6] 1.3 (09/18/13 8:58 PM) Calcium Lvl 8.9 mg/dL [8.5-10.5 mg/dL] (09/18/13 8:58 PM) Magnesium Lvl 1.9 mg/dL [1.8-2.4 mg/dL] (09/18/13 8:58 PM) ALT [0-65 unit/L] 330 unit/L *HI* (09/18/13 8:58 PM) AST [0-37 unit/L] 358 unit/L *HI* (09/18/13 8:58 PM) Alk Phos [39-136 308 unit/L unit/L] *HI* (09/18/13 8:58 PM) Bili Total [0.2-1.3 0.5 mg/dL mg/dL] (09/18/13 8:58 PM) 1Result Comment: The eGFR is calculated using [...] values reflect the clinical guidelines of the [employer]. URINE AND STOOL Most recent to 1 oldest [Reference Range]: UA Turbidity [Clear] Clear (09/19/13 12:40 AM) UA Color Ltyellow *NA* (09/19/13 12:40 AM) UA pH [5.0-8.0] 6.0 (09/19/13 12:40 AM) UA Spec Grav 1.008 [<=1.030] (09/19/13 12:40 AM) UA Glucose [Negative Negative mg/dL mg/dL] *NA* (09/19/13 12:40 AM) UA Blood [Negative] Small *ABN* (09/19/1340 AM) UA Ketones [Negative Trace mg/dL mg/dL] *ABN* (09/19/13 12:40 AM) UA Protein [Negative Negative mg/dL mg/dL] (09/19/13 12:40 AM) UA Urobilinogen <=1.0 mg/dL [0.1-1.0 mg/dL] *NA* (09/19/13 12:40 AM) UA Bili [Negative] Negative *NA* (09/19/13 12:40 AM) UA Leuk Est Small [Negative] *ABN* (09/19/1340 AM) UA Nitrite Negative [Negative] (09/19/13 12:40 AM) UA WBC [0-5 /HPF] 2 /HPF (09/19/13 12:40 AM) UA RBC [0-2 /HPF] <1 /HPF (09/19/13 12:40 AM) UA Sq Epi [Few /LPF] Occasional /LPF *NA* (09/19/13 12:40 AM) UA Hyal Cast [0-2 6 /LPF /LPF] *HI* (09/19/13 12:40 AM) IMMUNOLOGY Most recent to 1 oldest [Reference Range]: H pylori IgG <0.4 unit/mL 3 *NA* (09/24/13 7:14 AM) 3Interpretive Data: Reference Ranges: Negative: <0.9 U/mL Indeterminate: 0.9 - 1.0 U/mL Repeat testing in 10-14 days may be helpful Positive: >=1.1 U/mL A positive result indicates exposure of the patient to H. Pylori, but does not i ndicate that the current symptoms are due to H. Pylori infection or colonization . Neither does it differentiate between active and past infection. HEMATOLOGY Most recent to 1 oldest [Reference Range]: WBC [3.7-10.4 K/CMM] 5.8 K/CMM (09/18/13 8:58 PM) RBC [4.20-5.40 3.81 M/CMM M/CMM] *LOW* (09/18/13 8:58 PM) Hgb [12.0-16.0 g/dL] 12.2 g/dL (09/18/13 8:58 PM) Hct [36.0-48.0 %] 35.9 % *LOW* (09/18/13 8:58 PM) MCV [81.0-99.0 fL] 94.2 fL (09/18/13 8:58 PM) MCH [27.0-31.0 pg] 31.9 pg *HI* (09/18/13 8:58 PM) MCHC [32.0-36.0 33.9 g/dL g/dL] (09/18/13 8:58 PM) RDW [11.5-14.5 %] 13.7 % (09/18/13 8:58 PM) Platelet [133-450 300 K/CMM K/CMM] (09/18/13 8:58 PM) MPV [7.4-10.4 fL] 9.0 fL (09/18/13 8:58 PM) Segs [45.0-75.0 %] 58.4 % (09/18/13 8:58 PM) Lymphocytes 30.1 % [20.0-40.0 %] (09/18/13 8:58 PM) Monocytes [2.0-12.0 7.2 % %] (09/18/13 8:58 PM) Eosinophils [0.0-4.0 4.0 % %] (09/18/13 8:58 PM) Basophils [0.0-1.0 0.3 % %] (09/18/13 8:58 PM) Segs-Bands # 3.4 K/CMM [1.5-8.1 K/CMM] (09/18/13 8:58 PM) Lymphocytes # 1.7 K/CMM [1.0-5.5 K/CMM] (09/18/13 8:58 PM) Monocytes # [0.0-0.8 0.4 K/CMM K/CMM] (09/18/13 8:58 PM) Eosinophils # 0.2 K/CMM [0.0-0.5 K/CMM] (09/18/13 8:58 PM) Basophils # [0.0-0.2 0.0 K/CMM K/CMM] (09/18/13 8:58 PM) Medications Administered During Your Visit No data available for this section Immunizations Vaccine Date Refusal Reason Hx pneumococcal vaccine 12/29/10 influenza virus vaccine, inactivated 07/18/12 Social History Social History Type Response Alcohol Previous treatment: None Smoking Status Former smoker, Type: Cigarettes, Exposure to Tobacco Smoke None, Cigarette Smoking Last 365 Days No, Reg Smoking Cessation Counseling No Assessment and Plan Extracted from: Title: Clinical Document Author: Chitra Collins MD Date: 09/23/13 Progress Note - Daily Gastroenterology [facility] SUBJECTIVE: pt with post-surgical discomfort as expected, passing gas, no stools, overall better with no residual of the initial pain OBJECTIVE: Vitals Signs (last 24 hrs) Last Charted Minimum Maximum Temp 98.1 (SEPTEMBER 23 15:13)98.0 (SEPTEMBER 22 20:40)98.0 (SEPTEMBER 22 20:40) Heart Rate 94 (SEPTEMBER 23:13)88 (SEPTEMBER 22 20:40)H 102 (SEPTEMBER 23 04:42) Resp Rate 18 (SEPTEMBER 23:13)16 (SEPTEMBER 22 20:40)18 (SEPTEMBER 23 07:54) SBP 103 (SEPTEMBER 23:)96 (SEPTEMBER 22 20:40)121 (SEPTEMBER 23 07:54) DBP 66 (SEPTEMBER 23:)L 58 (SEPTEMBER 22 20:40)75 (SEPTEMBER 23 07:54) Input/Output RecordInOutBal 05/1224hr Tot 806 0 806 05/1124hr Tot 2109 1700 409 Physical Examination: General: nad, pleasant HEENT:perrl Pulm:cta CVS:rrr Abd:soft, nondistended, +hyperactive bs, tender at port sites but mild and as expected Ext/Skin: no rash, no cce Neuro/Psych: normal Scheduled Meds (6):chlordiazePOXIDE (chlordiazePOXIDE 25 mg oral capsule), citalopram (CeleXA), pantoprazole, pantoprazole, ranitidine (Zantac 300), zolpidem (Ambien) Unscheduled Meds: None PRN Meds (11):Dextrose 50% in Water IV (Dextrose 50% Syringe), LORazepam (Ativan), acetaminophen-hydrocodone ([place] 5/325 oral tablet), acetaminophen, docusate, hydrOXYzine, hydromorphone (Dilaudid), polyethylene glycol 3350 (MiraLax), promethazine (Phenergan), promethazine (Phenergan), sodium chloride (Saline Flush 0.9%) One Time Meds: None Continuous Infusions: None Labs (Last four charted values) WBC 5.8(SEPTEMBER 18) Hgb 12.2(SEPTEMBER 18) Hct L 35.9(SEPTEMBER 18) Plt 300(SEPTEMBER 18) Na 136(SEPTEMBER 18) K 3.5(SEPTEMBER 18) CO2 25(SEPTEMBER 18) Cl 102(SEPTEMBER 18) Cr 0.7(SEPTEMBER 18) BUN 12(SEPTEMBER 18) Glucose Random 90(SEPTEMBER 18) Mg 1.9(SEPTEMBER 18) Ca 8.9(SEPTEMBER 18) ASSESSMENT: 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 serology - will f/u liver bx result - agree with discharge tomorrow if doing well; f/u with me in clinic 1 week Thank you for allowing me to participate in the care of your patient. I will follow along with you during their hospitalization. Please do not hesitate to contact me with any questions or concerns.
--- OUTSIDE RECORDS SUMMARY | 2018-09-18 17:14 | XMS REPORT | Summary of Care ---
Author Organization Unknown Address Unknown Phone Unavailable Encounter YOGI Andrea(MECHELLE) [id number] Date(s): 12/05/13 - 12/05/13 [facility] Outpatient Imaging - [address] [address]- [place] Discharge Disposition: Home Physician Attending: Corey Bolaños MD Reason for Visit 724.2 - LUMBAGO 847.2 - SPRAIN LUMBAR R Problem List Condition Effective Dates Status Health [...] Active Paper Tape Active shellfish Active Medications No data available for this section Medications Administered During Your Visit No data [...]
--- OUTSIDE RECORDS SUMMARY | 2018-09-18 17:14 | XMS REPORT | Summary of Care ---
Author Organization Unknown Address Unknown Phone Unavailable Encounter YOGI Andrea(MECHELLE) [id number] Date(s): 09/01/13 - 09/10/13 [facility] [id number] [address] Discharge Diagnosis: Elevated liver function tests Discharge Diagnosis: Nausea and vomiting Discharge Diagnosis: Abdominal pain Discharge Disposition: Home Physician Attending: Corey Bolaños MD Physician Admitting: Corey Bolaños MD Reason for Visit INTRACTABLE VOMITING, ELEVATED LIVER ENZYMES Vital Signs 1 2 3 Most recent to oldest [Reference Range]: 167.64 cm (09/01/13 8:49 PM) Height 97.9 DegF (09/10/13 7:00 AM) 97.9 DegF (09/10/13 4:12 AM) 98.2 DegF (09/10/13 12:25 AM) Temperature Oral [96.4-99.1 DegF] 111 mmHg (09/10/13 7:00 AM) 114 mmHg (09/10/13 4:12 AM) 103 mmHg (09/10/13 12:25 AM) Systolic Blood Pressure [90-140 mmHg] 62 mmHg (09/10/13 7:00 AM) 66 mmHg (09/10/13 4:12 AM) 61 mmHg (09/10/13 12:25 AM) Diastolic Blood Pressure [60-90 mmHg] 16 BRMIN (09/10/13 7:00 AM) 16 BRMIN (09/10/13 4:12 AM) 18 BRMIN (09/10/13 12:25 AM) Respiratory Rate [14-20 BRMIN] 72 bpm (09/10/13 7:00 AM) 92 bpm (09/10/13 4:12 AM) 75 bpm (09/10/13 12:25 AM) Peripheral Pulse Rate [60-100 bpm] 67.273 kg (09/01/13 8:49 PM) Weight 23.94 m2 (09/01/13 8:49 PM) Body Mass Index Problem List Condition [...] Active shellfish Active Medications acetaminophen 650 mg, 20.3 mL, Route: PO, Drug form: LIQ, Q4H, Dosing Weight 67.273, kg, PRN P ain 1-3/Temp > 100.4 F, Start date: 09/02/13 8:21:00, Duration: 30 day, Stop date: 10/02/13 8:20:00 Notes: Max gyhuxwpynrbqp=4416vb/day (4 gm/day). (Same as: Tylenol) Start Date: 09/02/13 Stop Date: 09/10/13 Status: Discontinued acetaminophen-hydrocodone 325 mg-10 mg oral tablet 1 tab, Route: PO, Drug Form: TAB, Dosing Weight 67.273, kg, Q4H, PRN Pain Score 4-6, Start date: 09/02/13 8:21:00, Duration: 30 day, Stop date: 10/02/13 8:20:00 Notes: Do not exceed 4gm/day of acetaminophen. (Same as: [place] 325/10) Start Date: 09/02/13 Stop Date: 09/10/13 Status: Discontinued acetaminophen-hydrocodone 325 mg-10 mg oral tablet 1 tab, PO, Q4H, Pain Score 4-6, # 10 tab, 0 Refill(s) Start Date: 09/10/13 Status: Ordered acetaminophen-hydrocodone 325 mg-5 mg oral tablet 1 tab, Route: PO, Drug Form: TAB, Dosing Weight 67.273, kg, Q4H, PRN Pain Score 1-3, Start date: 09/02/13 8:21:00, Duration: 30 day, Stop date: 10/02/13 8:20:00 Notes: (Same as: [place] 325/5) Do not exceed 4gm/day of acetaminophen. Start Date: 09/02/13 Stop Date: 09/10/13 Status: Discontinued Actigall 300 mg, 1 cap, Route: PO, Drug form: CAP, Q12H, Dosing Weight 67.273, kg, Start date: 09/05/13 21:00:00, Duration: 30 day, Stop date: 10/05/13 9:00:00 Notes: (Same As: Actigall) Start Date: 09/05/13 Stop Date: 09/10/13 Status: Discontinued Ambien 10 mg, 1 tab, Route: PO, Drug form: TAB, Bedtime, Dosing Weight 67.273, kg, Star t date: 09/02/13 21:00:00, Duration: 30 day, Stop date: 10/01/13 21:00:00 Notes: (Same As: Ambien) Start Date: 09/02/13 Stop Date: 09/10/13 Status: Discontinued Anusol-HC 25 mg rectal suppository 1 appl, Route: MT, BID, Drug form: SUPP, Start date: 09/05/13 17:00:00, Duration : 30 day, Stop date: 10/05/13 9:00:00 Notes: (Same as: Anusol-HC, Hemorrhoidal HC) Start Date: 09/05/13 Stop Date: 09/10/13 Status: Discontinued Benadryl 25 mg, 0.5 mL, Route: IV, 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, Q4H, Dosing Weight 67.273, kg, PRN as needed for itching, Start date: 09/02/13 17:42:00, Duration: 30 day, Stop date: 10/02/13 17:41:00 Notes: (Same as: Benadryl) Start Date: 09/02/13 Stop Date: 09/10/13 Status: Discontinued CeleXA 40 mg, 2 tab, Route: PO, Drug form: TAB, QAM, Dosing Weight 67.273, kg, Start da te: 09/02/13 9:00:00, Duration: 30 day, Stop date: 10/01/13 9:00:00 Notes: (Same As: CeleXA) Start Date: 09/02/13 Stop Date: 09/10/13 Status: Discontinued chlordiazePOXIDE 25 mg oral capsule 25 mg, 1 cap, Route: PO, Drug form: CAP, QID, Dosing Weight 67.273, kg, PRN as n eeded for anxiety, Start date: 09/02/13 7:30:00, Duration: 30 day, Stop date: 7:29:00 Start Date: 09/02/13 Stop Date: 09/10/13 Status: Discontinued D5NS 1,000 mL 1,000 mL, Rate: 125 ml/hr, Infuse over: 8 hr, Route: IV, Dosing Weight 67.273 kg , Total Volume: 1,000, Start date: 09/04/13 20:05:00, Duration: 30 day, Stop ana cristina e: 10/04/13 20:04:00 Start Date: 09/04/13 Stop Date: 09/10/13 Status: Discontinued diazepam 10 mg, 1 tab, Route: PO, Drug form: TAB, Q6H, Dosing Weight 67.273, kg, Start da te: 09/02/13 12:00:00, Duration: 30 day, Stop date: 10/02/13 6:00:00 Notes: (Same as: Valium) Start Date: 09/02/13 Stop Date: 09/10/13 Status: Discontinued Dilaudid 1 mg, Route: IV, ONCE, Dosing Weight 67.273, kg, Start date: 09/02/13 2:49:00, S top date: 09/02/13 2:49:00 Start Date: 09/02/13 Stop Date: 09/02/13 Status: Completed Dilaudid 1 mg, 1 mL, Route: IV, 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, Q4H, Dosing Weight 67.273, kg, PRN Pain S core 7-10, Start date: 09/02/13 17:35:00, Duration: 30 day, Stop date: 10/02/13 17:34:00 Start Date: 09/02/13 Stop Date: 09/10/13 Status: Discontinued docusate 100 mg, 1 cap, Route: PO, Drug form: CAP, BID, Dosing Weight 67.273, kg, PRN Con stipation, Start date: 09/02/13 8:21:00, Duration: 30 day, Stop date: 10/02/13 8 :20:00 Notes: (Same as: Colace) (Do Not Crush) Start Date: 09/02/13 Stop Date: 09/10/13 Status: Discontinued docusate sodium 100 mg oral capsule 100 mg, 1 cap, Route: PO, Drug form: CAP, BID, Dosing Weight 67.273, kg, PRN Con stipation, Start date: 09/03/13 12:48:00, Duration: 30 day, Stop date: 10/03/13 12:47:00 Start Date: 09/03/13 Stop Date: 09/03/13 Status: Deleted GoLYTELY 4,000 ml, Route: PO, Drug Form: PDR/REC, Dosing Weight 67.273, kg, ONCE, Start d ate: 09/04/13 9:11:00, Duration: 1 doses or times, Stop date: 09/04/13 9:11:00 Notes: (polyethylene glycol electrolyte solution 4 Liter bottle) (Same as: Gol ytely, Colyte) Start Date: 09/04/13 Stop Date: 09/04/13 Status: Completed hydromorphone 1 mg, Route: IVP, ONCE, Dosing Weight 67.273, kg, Priority: STAT, Start date: 0:51:00, Stop date: 09/02/13 0:51:00 Start Date: 09/02/13 Stop Date: 09/02/13 Status: Completed hydrOXYzine 25 mg, 1 tab, Route: PO, Drug form: TAB, Bedtime, Dosing Weight 67.273, kg, Star t date: 09/02/13 21:00:00, Duration: 30 day, Stop date: 10/01/13 21:00:00 Notes: (Same as: Atarax) Avoid alcohol. Start Date: 09/02/13 Stop Date: 09/10/13 Status: Discontinued hyoscyamine 0.125 mg, 1 tab, Route: SL, Drug form: TAB, Q6H, Dosing Weight 67.273, kg, PRN a s needed for spasm, Start date: 09/02/13 17:41:00, Duration: 30 day, Stop date: 10/02/13 17:40:00 Notes: (Same as: Levsin) Take 30 min before meal Start Date: 09/02/13 Stop Date: 09/10/13 Status: Discontinued hyoscyamine 0.125 mg sublingual tablet 0.125 mg=1 tab, SL, Q6H, GI Upset, 0 Refill(s) Start Date: 09/02/13 Status: Ordered metroNIDAZOLE 500 mg oral tablet 500 mg, 1 tab, Route: PO, Drug form: TAB, ABXQ8H, Dosing Weight 67.273, kg, Star t date: 09/05/13 14:00:00, Duration: 7 day, Stop date: 09/12/13 6:00:00 Notes: (Same as: Flagyl) Take with food/ avoid alcohol Start Date: 09/05/13 Stop Date: 09/10/13 Status: Discontinued MiraLax 17 gm, 1 pkt, Route: PO, Drug form: PWDR, BID, Dosing Weight 67.273, kg, PRN Con stipation, Start date: 09/03/13 12:48:00, Duration: 30 day, Stop date: 10/03/13 12:47:00 Notes: Dissolve in 8 oz of water or juice.(Same as: Miralax) Start Date: 09/03/13 Stop Date: 09/10/13 Status: Discontinued MiraLax 17 gm, PO, Daily, 0 Refill(s) Start Date: 09/02/13 Status: Ordered morphine Sulfate 2 mg, 1 mL, Route: IVP, 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, Q3H, Dosing Weight 67.273, kg, PRN Pain Score 4-6, Start date: 09/02/13 8:21:00, Duration: 30 day, Stop date: 10/02/13 8 :20:00 Notes: (Same as:MORPhine Sulfate) Start Date: 09/02/13 Stop Date: 09/02/13 Status: Discontinued multivitamin with minerals 1 tab, Route: PO, Drug Form: TAB, Dosing Weight 67.273, kg, Daily, Start date: 0 09/02/13 9:00:00, Duration: 30 day, Stop date: 10/01/13 9:00:00 Notes: (Same as:Thera-M, Theragran-M) Give with food. Start Date: 09/02/13 Stop Date: 09/10/13 Status: Discontinued normal saline 0.9% IV 1,000 mL 1,000 mL, Rate: 125 ml/hr, Infuse over: 8 hr, Route: IV, Dosing Weight 67.273 kg , Total Volume: 1,000, Start date: 09/02/13 7:29:00, Duration: 30 day, Stop date : 10/02/13 7:28:00 Start Date: 09/02/13 Stop Date: 09/04/13 Status: Discontinued ondansetron 4 mg, 2 mL, Route: IVP, 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, Q8H, Dosing Weight 67.273, kg, PRN Nause a & Vomiting, Start date: 09/02/13 8:21:00, Duration: 30 day, Stop date: 10/02/13 8:20:00 Notes: (Same as: Zofran) Start Date: 09/02/13 Stop Date: 09/02/13 Status: Discontinued Phenergan 12.5 mg, Route: IVPB, ONCE, Dosing Weight 67.273, kg, Priority: STAT, Start date : 09/02/13 2:49:00, Stop date: 09/02/13 2:49:00 Start Date: 09/02/13 Stop Date: 09/02/13 Status: Completed Phenergan 25 mg, 1 supp, Route: MT, Drug form: SUPP, Q4H, Dosing Weight 67.273, kg, PRN Na usea & Vomiting, Start date: 09/09/13 16:33:00, Duration: 30 day, Stop date: 10/09/13 16:32:00 Notes: (Same as: Phenergan) Start Date: 09/09/13 Stop Date: 09/10/13 Status: Discontinued Phenergan 12.5 mg, 1 supp, Route: MT, Drug form: SUPP, Q4H, Dosing Weight 67.273, kg, PRN Nausea & Vomiting, Start date: 09/07/13 7:51:00, Duration: 30 day, Stop date: 10/07/13 7:50:00 Notes: (Same as: Phenergan) Start Date: 09/07/13 Stop Date: 09/10/13 Status: Discontinued Phenergan + Sodium Chloride 0.9% IV 50 mL 12.5 mg, 0.5 mL, Route: IVPB, Q4H, Dosing Weight 67.273, kg, PRN as needed for n ausea/vomiting, Start date: 09/02/13 8:32:00, Duration: 30 day, Stop date: 10/02 8:31:00 Notes: Do not give IV push. (Same as: Phenergan) Start Date: 09/02/13 Stop Date: 09/10/13 Status: Discontinued Phenergan + Sodium Chloride 0.9% IV 50 mL 12.5 mg, 0.5 mL, Route: IVPB, ONCE, Dosing Weight 67.273, kg, Priority: STAT, St art date: 09/01/13 23:58:00, Stop date: 09/01/13 23:58:00 Notes: Do not give IV push. (Same as: Phenergan) Start Date: 09/01/13 Stop Date: 09/02/13 Status: Completed Phenergan 25 mg oral tablet 25 mg=1 tab, PO, Q4H, Nausea, # 15 tab, 0 Refill(s) Start Date: 09/02/13 Stop Date: 09/02/13 Status: Discontinued potassium chloride 20 mEq oral tablet, extended release 20 mEq, 1 tab, Route: PO, Drug form: ERTAB, Daily, Dosing Weight 67.273, kg, Sta rt date: 09/02/13 9:00:00, Duration: 30 day, Stop date: 10/01/13 9:00:00 Notes: (Same as: K-Dur 20)"Do Not Crush" With food and full glass of water Start Date: 09/02/13 Stop Date: 09/10/13 Status: Discontinued promethazine 12.5 mg rectal suppository 12.5 mg=1 supp, MT, Q4H, Nausea & Vomiting, # 12 can, 0 Refill(s) Start Date: 09/07/13 Status: Ordered promethazine 25 mg oral tablet 25 mg=1 tab, PO, Q6H, Nausea & Vomiting, # 15 tab, 0 Refill(s) Start Date: 09/02/13 Stop Date: 09/07/13 Status: Discontinued promethazine 25 mg rectal suppository 25 mg=1 supp, MT, Q4H, Nausea & Vomiting, # 10 supp, 0 Refill(s) Start Date: 09/10/13 Status: Ordered Protonix 40 mg, 1 tab, Route: PO, Drug form: ECTAB, Daily, Start date: 09/06/13 9:00:00, Duration: 30 day, Stop date: 10/05/13 9:00:00 Notes: Tablet should not be chewed or crushed.(Same as: Protonix) Start Date: 09/06/13 Stop Date: 09/10/13 Status: Discontinued Protonix 40 mg, Route: IV, 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, Daily, Dosing Weight 67.273, kg, Start date: 0 09/03/13 9:00:00, Duration: 30 day, Stop date: 10/02/13 9:00:00 Notes: For IV push reconstitute with 10 ml 0.9% sodium chloride and push over 2 minutes. (Same as: Protonix) Start Date: 09/03/13 Stop Date: 09/05/13 Status: Discontinued Reglan 10 mg oral tablet 10 mg, 1 tab, Route: PO, Drug form: TAB, Before Meals & Bedtime, Dosing Weight 67.273, kg, Start date: 09/08/13 11:30:00, Duration: 30 day, Stop date: 10/08/13 7:30:00 Notes: (Same as: Reglan) Take 30 min before meals Start Date: 09/08/13 Stop Date: 09/10/13 Status: Discontinued Saline Flush 0.9% 5 ml, Route: IVP, Drug Form: INJ, Dosing Weight 67.273, kg, PRN, PRN Line Flush, Start date: 09/02/13 8:21:00, Duration: 30 day, Stop date: 10/02/13 8:20:00 Notes: (Same as: BD Posiflush) Start Date: 09/02/13 Stop Date: 09/10/13 Status: Discontinued Saline Flush 0.9% 5 mL, Route: IVP, Drug Form: INJ, Dosing Weight 67.273, kg, PRN, PRN Line Flush, Start date: 09/01/13 23:58:00, Duration: 24 hr, Stop date: 09/02/13 23:57:00 Notes: (Same as: BD Posiflush) Start Date: 09/01/13 Stop Date: 09/02/13 Status: Discontinued Sodium Chloride 0.45% IV 1,000 mL 1,000 mL, Rate: 125 ml/hr, Infuse over: 8 hr, Route: IV, Dosing Weight 67.273 kg , Total Volume: 1,000, Start date: 09/02/13 8:21:00, Duration: 30 day, Stop date : 10/02/13 8:20:00 Start Date: 09/02/13 Stop Date: 09/02/13 Status: Discontinued Sodium Chloride 0.9% (Bolus) IV - - 1,000 mL, 1000 ml/hr, Infuse Over: 1 hr, Route: IV, 1,000, 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, ONCE, Priority: STAT, Dosing Weight 67.273 kg, Start date: 09/01/13 23:58:00, Duratio n: 1 doses or times, Stop date: 09/01/13 23:58:00 Start Date: 09/01/13 Stop Date: 09/02/13 Status: Completed Sodium Chloride 0.9% IV 1,000 mL 1,000 mL, Rate: 25 ml/hr, Infuse over: 40 hr, Route: IV, Dosing Weight 67.273 kg , Total Volume: 1,000, Start date: 09/05/13 12:09:00, Duration: 1 day, Stop date : 09/06/13 12:08:00 Start Date: 09/05/13 Stop Date: 09/05/13 Status: Discontinued thiamine 100 mg, 1 tab, Route: PO, Drug form: TAB, Daily, Dosing Weight 67.273, kg, Start date: 09/09/13 9:00:00, Duration: 30 day, Stop date: 10/08/13 9:00:00 Notes: (Same As: Vitamin B1) Start Date: 09/09/13 Stop Date: 09/10/13 Status: Discontinued Zofran 4 mg, 1 tab, Route: PO, Drug form: TABDIS, TID, Dosing Weight 67.273, kg, PRN Na usea, Start date: 09/09/13 16:33:00, Duration: 30 day, Stop date: 10/09/13 16:32 :00 Notes: (Same as: Zofran ODT) Start Date: 09/09/13 Stop Date: 09/10/13 Status: Discontinued Zofran 4 mg, Route: IVP, 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, ONCE, Dosing Weight 67.273, kg, Priority: STAT , Start date: 09/02/13 4:03:00, Stop date: 09/02/13 4:03:00 Start Date: 09/02/13 Stop Date: 09/02/13 Status: Completed zolpidem 10 mg oral tablet 10 mg=1 tab, PO, Bedtime, for sleep, 0 Refill(s) Start Date: 09/02/13 Status: Ordered Results ELECTROLYTES 1 2 3 Most recent to oldest [Reference Range]: 144 mEq/L (09/10/13 6:58 AM) 141 mEq/L (09/04/13 8:25 AM) 141 mEq/L (09/03/13 6:34 AM) Sodium Lvl [135-145 mEq/L] 3.7 mEq/L (09/10/13 6:58 AM) 4.1 mEq/L (09/04/13 8:25 AM) 4.0 mEq/L (09/03/13 6:34 AM) Potassium Lvl [3.5-5.1 mEq/L] 108 mEq/L (09/10/13 6:58 AM) 109 mEq/L (09/04/13 8:25 AM) 112 mEq/L *HI* (09/03/13 6:34 AM) Chloride Lvl [95-109 mEq/L] 29 mEq/L (09/10/13 6:58 AM) 25 mEq/L (09/04/13 8:25 AM) 27 mEq/L (09/03/13 6:34 AM) CO2 [24-32 mEq/L] 10.7 mEq/L (09/10/13 6:58 AM) 11.1 mEq/L (09/04/13 8:25 AM) 6.0 mEq/L *LOW* (09/03/13 6:34 AM) AGAP [10.0-20.0 mEq/L] CHEM PANEL 1 2 3 Most recent to oldest [Reference Range]: 0.6 mg/dL (09/10/13 6:58 AM) 0.6 mg/dL (09/04/13 8:25 AM) 0.6 mg/dL (09/03/13 6:34 AM) Creatinine Lvl [0.5-1.4 mg/dL] 117 mL/min/1.73m2 1 *NA* (09/10/13 6:58 AM) 117 mL/min/1.73m2 2 *NA* (09/04/13 8:25 AM) 117 mL/min/1.73m2 3 *NA* (09/03/13 6:34 AM) eGFR 5 mg/dL *LOW* (09/10/13 6:58 AM) 3 mg/dL *LOW* (09/04/13 8:25 AM) 6 mg/dL *LOW* (09/03/13 6:34 AM) BUN [7-22 mg/dL] 8 (09/10/13 6:58 AM) 5 *LOW* (09/04/13 8:25 AM) 10 (09/03/13 6:34 AM) B/C Ratio [6-25] 81 mg/dL 4 (09/10/13 6:58 AM) 73 mg/dL 5 (09/04/13 8:25 AM) 61 mg/dL 6 *LOW* (09/03/13 6:34 AM) Glucose Lvl [70-99 mg/dL] 5.4 g/dL *LOW* (09/10/13 6:58 AM) 5.6 g/dL *LOW* (09/08/13 4:28 AM) 6.4 g/dL (09/07/13 4:15 AM) Total Protein [6.4-8.4 g/dL] 3.0 g/dL *LOW* (09/10/13 6:58 AM) 3.0 g/dL *LOW* (09/08/13 4:28 AM) 3.5 g/dL (09/07/13 4:15 AM) Albumin Lvl [3.5-5.0 g/dL] 2.4 g/dL (09/10/13 6:58 AM) 2.6 g/dL (09/08/13 4:28 AM) 2.9 g/dL (09/07/13 4:15 AM) Globulin [2.0-4.0 g/dL] 1.2 (09/10/13 6:58 AM) 1.2 (09/08/13 4:28 AM) 1.2 (09/07/13 4:15 AM) A/G Ratio [0.7-1.6] 8.6 mg/dL (09/10/13 6:58 AM) 8.1 mg/dL *LOW* (09/04/13 8:25 AM) 8.1 mg/dL *LOW* (09/03/13 6:34 AM) Calcium Lvl [8.5-10.5 mg/dL] 95 unit/L *HI* (09/10/13 6:58 AM) 136 unit/L *HI* (09/08/13 4:28 AM) 177 unit/L *HI* (09/07/13 4:15 AM) ALT [0-65 unit/L] 20 unit/L (09/10/13 6:58 AM) 42 unit/L *HI* (09/08/13 4:28 AM) 31 unit/L (09/07/13 4:15 AM) AST [0-37 unit/L] 199 unit/L *HI* (09/10/13 6:58 AM) 224 unit/L *HI* (09/08/13 4:28 AM) 268 unit/L *HI* (09/07/13 4:15 AM) Alk Phos [39-136 unit/L] 0.2 mg/dL (09/10/13 6:58 AM) 0.1 mg/dL *LOW* (09/08/13 4:28 AM) 0.2 mg/dL (09/07/13 4:15 AM) Bili Total [0.2-1.3 mg/dL] <0.1 mg/dL (09/10/13 6:58 AM) <0.1 mg/dL (09/08/13 4:28 AM) <0.1 mg/dL (09/07/13 4:15 AM) Bili Direct [0.0-0.3 mg/dL] >0.0 mg/dL (09/08/13 4:28 AM) >0.1 mg/dL (09/07/13 4:15 AM) >0.2 mg/dL (09/06/13 5:26 AM) Bili Indirect [0.0-1.0 mg/dL] 54 unit/L 7 (09/02/13 12:53 AM) Amylase Lvl [25-115 unit/L] 170 unit/L 8 (09/02/13 12:53 AM) Lipase Lvl [73-393 unit/L] NEGATIVE *NA* (09/04/13 5:28 AM) HSV 1 IgM NEGATIVE 9 *NA* (09/04/13 5:28 AM) HSV 2 IgM 1Result Comment: The eGFR is calculated using [...] be mul tiplied by the estimated BMI. 3Result Comment: The eGFR is calculated using [...] be mul tiplied by the estimated BMI. 4Interpretive Data: Adult reference range values reflect the clinical guidelines of the [place] [employer]. 5Interpretive Data: Adult reference range values reflect the clinical guidelines of the [place] [employer]. 6Interpretive Data: Adult reference range values reflect the clinical guidelines of the [place] [employer]. 7Result Comment: Collection date/time has been modified to: 00:53:00. Previous collection date/time: 00:53:00. 8Result Comment: Collection date/time has been modified to: 00:53:00. Previous collection date/time: 00:53:00. 9Result Comment: REFERENCE RANGE: NEGATIVE The IFA procedure for measuring IgM antibodies to HSV 1 and HSV 2 detects both type-common and type- specific HSV antibodies. Thus, IgM reactivity to both HSV 1 and HSV 2 may represent crossreactive HSV antibodies rather than exposure to both HSV 1 and HSV 2. This test was developed and its performance characteristics have been determined by [email or web address]. Performance characteristics refer to the analytical performance of the test. Test Performed at: [email or web address], [email or web address]. [id number] [place] [address] Deni Meng MD URINE CHEM 1 2 3 Most recent to oldest [Reference Range]: Negative (09/01/13 11:24 PM) U Preg [Negative] URINE AND STOOL 1 2 3 Most recent to oldest [Reference Range]: Clear (09/01/13 11:24 PM) UA Turbidity [Clear] Ltyellow *NA* (09/01/13 11:24 PM) UA Color 5.0 (09/01/13 11:24 PM) UA pH [5.0-8.0] 1.020 (09/01/13 11:24 PM) UA Spec Grav [<=1.030] Negative mg/dL *NA* (09/01/13 11:24 PM) UA Glucose [Negative mg/dL] Negative (09/01/13 11:24 PM) UA Blood [Negative] Negative mg/dL *NA* (09/01/13 11:24 PM) UA Ketones [Negative mg/dL] Negative mg/dL (09/01/13 11:24 PM) UA Protein [Negative mg/dL] <=1.0 mg/dL *NA* (09/01/13 11:24 PM) UA Urobilinogen [0.1-1.0 mg/dL] Negative *NA* (09/01/13 11:24 PM) UA Bili [Negative] Small *ABN* (09/01/13 11:24 PM) UA Leuk Est [Negative] Negative (09/01/13 11:24 PM) UA Nitrite [Negative] 8 /HPF *HI* (09/01/13 11:24 PM) UA WBC [0-5 /HPF] <1 /HPF (09/01/13 11:24 PM) UA RBC [0-2 /HPF] Occasional /LPF *NA* (09/01/13 11:24 PM) UA Sq Epi [Few /LPF] IMMUNOLOGY 1 2 3 Most recent to oldest [Reference Range]: Negative (09/03/13 6:34 AM) MARVIN [Negative] Negative (09/04/13 5:28 AM) AMA Ab Scr [Negative] Negative (09/04/13 5:28 AM) SMA Screen [Negative] 22 mg/dL (09/04/13 5:28 AM) Ceruloplasmin [20-60 mg/dL] 129 mg/dL (09/04/13 5:28 AM) A-1-AT [83-199 mg/dL] 0.1 S/CO Ratio 10 *NA* (09/04/13 5:28 AM) CMV IgM Negative (09/01/13 12:53 AM) CDC HIV 4th GEN [Negative] <20.0 Units 11 *NA* (09/04/13 5:28 AM) LKM Negative *NA* (09/03/13 6:34 AM) Hep Bs Ag [Negative] Negative *NA* (09/03/13 6:34 AM) Hep B Core IgM [Negative] Negative *NA* (09/03/13 6:34 AM) Hep A IgM [Negative] Negative *NA* (09/03/13 6:34 AM) Hep C Ab [Negative] 10Interpretive Data: Reference Ranges: Non-reactive: <0.9 S/CO Ratio Indeterminate: 0.9 - 1.0 S/CO Ratio Reactive: >=1.1 S/CO Ratio 11Result Comment: Reference Range: <=20.0 NEGATIVE 20.1-24.9 EQUIVOCAL >=25.0 POSITIVE Anti-liver/ kidney microsomal antibodies (Anti-LKM-1) were previously tested for by indirect immunofluorescence (IF) using rodent liver/kidney substrate. Identification of the specific antibody target as cytochrome P450 IID6 has led to the development of an KATTY based recombinant assay. Antibodies to this cytochrome are present in approximately 70% of patients with autoimmune hepatitis type 2. This antibody is also present in approximately 10% of patients with hepatitis C infection. Test Performed at: [facility] [address] [address] Néstor Gomez MD, PhD HEMATOLOGY 1 2 3 Most recent to oldest [Reference Range]: 3.4 K/CMM *LOW* (09/03/13 6:34 AM) 5.0 K/CMM 12 (09/02/13 12:53 AM) WBC [3.7-10.4 K/CMM] 2.94 M/CMM *LOW* (09/03/13 6:34 AM) 3.93 M/CMM 13 *LOW* (09/02/13 12:53 AM) RBC [4.20-5.40 M/CMM] 9.6 g/dL *LOW* (09/03/13 6:34 AM) 12.5 g/dL 14 (09/02/13 12:53 AM) Hgb [12.0-16.0 g/dL] 28.0 % *LOW* (09/03/13 6:34 AM) 37.2 % 15 (09/02/13 12:53 AM) Hct [36.0-48.0 %] 95.2 fL (09/03/13 6:34 AM) 94.6 fL 16 (09/02/13 12:53 AM) MCV [81.0-99.0 fL] 32.5 pg *HI* (09/03/13 6:34 AM) 31.9 pg 17 *HI* (09/02/13 12:53 AM) MCH [27.0-31.0 pg] 34.2 g/dL (09/03/13 6:34 AM) 33.7 g/dL 18 (09/02/13 12:53 AM) MCHC [32.0-36.0 g/dL] 14.2 % (09/03/13 6:34 AM) 14.0 % 19 (09/02/13 12:53 AM) RDW [11.5-14.5 %] 195 K/CMM (09/03/13 6:34 AM) 288 K/CMM 20 (09/02/13 12:53 AM) Platelet [133-450 K/CMM] 10.2 fL (09/03/13 6:34 AM) 10.2 fL 21 (09/02/13 12:53 AM) MPV [7.4-10.4 fL] 22.2 % *LOW* (09/03/13 6:34 AM) 33.4 % 22 *LOW* (09/02/13 12:53 AM) Segs [45.0-75.0 %] 64.7 % *HI* (09/03/13 6:34 AM) 54.8 % 23 *HI* (09/02/13 12:53 AM) Lymphocytes [20.0-40.0 %] 5.8 % (09/03/13 6:34 AM) 8.5 % 24 (09/02/13 12:53 AM) Monocytes [2.0-12.0 %] 6.3 % *HI* (09/03/13 6:34 AM) 2.8 % 25 (09/02/13 12:53 AM) Eosinophils [0.0-4.0 %] 1.0 % (09/03/13 6:34 AM) 0.5 % 26 (09/02/13 12:53 AM) Basophils [0.0-1.0 %] 0.7 K/CMM *LOW* (09/03/13 6:34 AM) 1.7 K/CMM 27 (09/02/13 12:53 AM) Segs-Bands # [1.5-8.1 K/CMM] 2.2 K/CMM (09/03/13 6:34 AM) 2.8 K/CMM 28 (09/02/13 12:53 AM) Lymphocytes # [1.0-5.5 K/CMM] 0.2 K/CMM (09/03/13 6:34 AM) 0.4 K/CMM 29 (09/02/13 12:53 AM) Monocytes # [0.0-0.8 K/CMM] 0.2 K/CMM (09/03/13 6:34 AM) 0.1 K/CMM 30 (09/02/13 12:53 AM) Eosinophils # [0.0-0.5 K/CMM] 0.0 K/CMM (09/03/13 6:34 AM) 0.0 K/CMM 31 (09/02/13 12:53 AM) Basophils # [0.0-0.2 K/CMM] 1+ *ABN* (09/03/13 6:34 AM) Anisocyte [None Seen] Slight *ABN* (09/03/13 6:34 AM) Elliptocyte [None Seen] Normal (09/03/13 6:34 AM) Plt Morph 12Result Comment: Collection date/time has been modified to: 00:53:00. Previous collection date/time: 00:53:00. 13Result Comment: Collection date/time has been modified to: 00:53:00. Previous collection date/time: 00:53:00. 14Result Comment: Collection date/time has been modified to: 00:53:00. Previous collection date/time: 00:53:00. 15Result Comment: Collection date/time has been modified to: 00:53:00. Previous collection date/time: 00:53:00. 16Result Comment: Collection date/time has been modified to: 00:53:00. Previous collection date/time: 00:53:00. 17Result Comment: Collection date/time has been modified to: 00:53:00. Previous collection date/time: 00:53:00. 18Result Comment: Collection date/time has been modified to: 00:53:00. Previous collection date/time: 00:53:00. 19Result Comment: Collection date/time has been modified to: 00:53:00. Previous collection date/time: 00:53:00. 20Result Comment: Collection date/time has been modified to: 00:53:00. Previous collection date/time: 00:53:00. 21Result Comment: Collection date/time has been modified to: 00:53:00. Previous collection date/time: 00:53:00. 22Result Comment: Collection date/time has been modified to: 00:53:00. Previous collection date/time: 00:53:00. 23Result Comment: Collection date/time has been modified to: 00:53:00. Previous collection date/time: 00:53:00. 24Result Comment: Collection date/time has been modified to: 00:53:00. Previous collection date/time: 00:53:00. 25Result Comment: Collection date/time has been modified to: 00:53:00. Previous collection date/time: 00:53:00. 26Result Comment: Collection date/time has been modified to: 00:53:00. Previous collection date/time: 00:53:00. 27Result Comment: Collection date/time has been modified to: 00:53:00. Previous collection date/time: 00:53:00. 28Result Comment: Collection date/time has been modified to: 00:53:00. Previous collection date/time: 00:53:00. 29Result Comment: Collection date/time has been modified to: 00:53:00. Previous collection date/time: 00:53:00. 30Result Comment: Collection date/time has been modified to: 00:53:00. Previous collection date/time: 00:53:00. 31Result Comment: Collection date/time has been modified to: 00:53:00. Previous collection date/time: 00:53:00. Medications Administered During Your Visit No data [...] Plan Extracted from: Title: Clinical Document Author: Corey Bolaños MD Date: 09/10/13 Progress Daily [facility] Completed: Aug, 05:35 by Corey Bolaños MD RM: 429 - 1P, SE [id number] MUSTAFA [id number] (: 1975) F Attending: Corey Bolaños MDPhone: Service: Internal Medicine Reason for Admission: INTRACTABLE VOMITING, ELEVATED LIVER ENZYMES Working DRG: Esophagitis, gastroent & misc digest disorders w/o [facility] [place] Code status: None Specified=FULL CODECurrent diet: Isolation: None Documented Allergies: Food MSG, Paper Tape, Augmentin, shellfish, aspirin, iodine, Imitrex SUBJECTIVE eating this morning/ long discussion/ reveiwed consultants' notes with the patients OBJECTIVE ASSESSMENT & EXAM PLAN & TREATMENT DIAGNOSES & PROBLEMS Ready for Discharge (Yes/No)? Cosme still necessary (Yes/No): Line still necessary (Yes/No): 24hr Labs 09/09 2246 Glucose CPN519 H 09/09 1726 Glucose OYD143 H 09/09 1201 Glucose DIM457 H 09/09 1059 Glucose POC31 C 09/09 0621 Glucose POC94 VitalsTmp(F)OqaoaQBVSLzA7LCK0 09/10 04:1297.197336/6616------ 09/10 00:2598.558862/6118------ 09/09 20:0098.408270/8216------ 09/09 17:3898.630577/6218------ 09/09 12:0598.423192/5218------ 24 Hr Tmax: 98.5F (36.94c) at 09/09 17:38Vital Signs are the last 5 in the past 48 hours. DateWt(kg)Wt(lb)Ht(cm)Ht(in)Method 09/01 (initial) 67.27 [id number] 66.00Stated I&ORecordInOutBal 4hr Tot 2679 500 2179 4hr Tot 313 0 313 Medications (27) Active Scheduled Meds (): 09/02/13 citalopram (CeleXA) 40 mg PO QAM 09/02/13 diazepam 10 mg PO Q6H 09/02/13 hydrOXYzine 25 mg PO Bedtime 09/05/13 hydrocortisone topical (Anusol-HC 25 mg rectal suppository) 1 appl MT BID 09/08/13 metoclopramide (Reglan 10 mg oral tablet) 10 mg PO Before Meals & Bedtime 09/05/13 metroNIDAZOLE (metroNIDAZOLE 500 mg oral tablet) 500 mg PO ABXQ8H 09/02/13 multivitamin with minerals 1 tab PO Daily 09/06/13 pantoprazole (Protonix) 40 mg PO Daily 09/09/13 (Suspended) potassium chloride (potassium chloride 20 mEq oral tablet, extended release) 20 mEq PO Daily 09/09/13 thiamine 100 mg PO Daily 09/05/13 ursodiol (Actigall) 300 mg PO Q12H 09/02/13 zolpidem (Ambien) 10 mg PO Bedtime Unscheduled Meds: None PRN Meds (14): 09/02/13 acetaminophen-hydrocodone (acetaminophen-hydrocodone 325 mg-5 mg oral tablet) 1 tab PO Q4H 09/02/13 acetaminophen-hydrocodone (acetaminophen-hydrocodone 325 mg-10 mg oral tablet) 1 tab PO Q4H 09/02/13 acetaminophen 650 mg PO Q4H 09/02/13 chlordiazePOXIDE (chlordiazePOXIDE 25 mg oral capsule) 25 mg PO QID 09/02/13 diphenhydrAMINE (Benadryl) 25 mg IV Q4H 09/02/13 docusate 100 mg PO BID 09/02/13 hydromorphone (Dilaudid) 1 mg IV Q4H 09/02/13 hyoscyamine 0.125 mg SL Q6H 09/09/13 ondansetron (Zofran) 4 mg PO TID 09/03/13 polyethylene glycol 3350 (MiraLax) 17 gm PO BID 09/02/13 promethazine + Sodium Chloride 0.9% IV 50 mL (Phenergan + Sodium Chloride 0.9% IV 50 mL) 12.5 mg IVPB Q4H 151.5 ml/hr 09/07/13 promethazine (Phenergan) 12.5 mg MT Q4H 09/09/13 promethazine (Phenergan) 25 mg MT Q4H 09/02/13 sodium chloride (Saline Flush 0.9%) 5 ml IVP PRN One Time Meds: None Continuous Infusions (1): 09/04/13 Dextrose 5% with 0.9% NaCl IV 1,000 mL (D5NS 1,000 mL) 1,000 mL 125 ml/hr
--- OUTSIDE RECORDS SUMMARY | 2018-09-18 17:15 | XMS REPORT | Summary of Care ---
Author Author [facility] Organization [facility] Address Unknown Phone Unavailable Encounter YOGI Andrea(MECHELLE) [id number] Date(s): 03/20/15 - 03/20/15 [facility] [address] [place] [address]- [phone] Discharge Diagnosis: Contusion of left upper arm, initial encounter Discharge Disposition: Home Attending Physician: Yanet Smith DO Vital Signs Most recent to 1 2 oldest [Reference Range]: Height 167.64 cm (03/20/15 7:18 PM) Temperature Oral 98.0 DegF 98.3 DegF [96.4-99.1 DegF] (03/20/15 10:19 PM) (03/20/15 7:18 PM) Blood Pressure 130/78 mmHg 137/77 mmHg [90-140/60-90 mmHg] (03/20/15 10:19 PM) (03/20/15 7:18 PM) Respiratory Rate 20 BRMIN 24 BRMIN [14-20 BRMIN] (03/20/15 10:19 PM) *HI* (03/20/15 7:18 PM) Peripheral Pulse 88 bpm 90 bpm Rate [60-100 bpm] (03/20/15 10:19 PM) (03/20/15 7:18 PM) Weight 64.545 kg (03/20/15 7:18 PM) Body Mass Index 22.97 m2 (03/20/15 7:18 PM) Problem List Condition Effective Dates Status Health Status Informant Abdominal Active pain(Confirmed) Anxiety(Confirmed) Active Anxiety(Confirmed) Active Biopsy of Active liver(Confirmed) Cancer(Confirmed)1 Resolved Cancer of Active cervix(Confirmed) Depression(Confirmed Active ) Female genital organ Active symptoms(Confirmed)2 Gastric bypass Active operation(Confirmed) Kidney Resolved infection(Confirmed) Laparoscopic Active procedure(Confirmed) Lumbar puncture Active headache(Confirmed) Lysis of Active adhesions(Confirmed) Malabsorption(Confir Resolved med) Migraine(Confirmed) Active Sinusitis(Confirmed) Active Ulcer(Confirmed) Active 1cervical 2CANCELLED Allergies, Adverse Reactions, Alerts Substance Reaction Severity Status aspirin Resolved Augmentin Active Imitrex Active iodine Active Paper Tape Active shellfish Active Medications morphine Sulfate 4 mg, Route: IM, 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, ONCE, Dosing Weight 64.545, kg, Priority: STAT, Start date: 03/20/15 22:11:00, Stop date: 03/20/15 22:11:00 Start Date: 03/20/15 Stop Date: 03/20/15 Status: Completed tramadol 50 mg oral tablet 50 mg=1 tab, PO, BID, X 7 day, # 14 tab, 0 Refill(s) Start Date: 03/20/15 Stop Date: 03/27/15 Status: Ordered Results No data available for this section Immunizations Vaccine Date Refusal Reason Hx pneumococcal vaccine 12/29/10 influenza virus vaccine, inactivated 07/18/12 Procedures Procedure Date Related Diagnosis Body Site Biopsy of liver 2011 Abdominal hysterectomy Back fusion Cholecystectomy Foot joint operations Gastric bypass operation Hernia repair Internal and external hemorrhoidectomy and anal fissurectomy Tonsil operation Social History Social History Type Response Alcohol Last use: none. Previous treatment: None. Smoking Status Current every day smoker; Type: Cigarettes; Tobacco use per day: 3; Exposure to Tobacco Smoke None; Cigarette Smoking Last 365 Days Yes; Reg Smoking Cessation Counseling No Assessment and Plan No data available for this section
--- OUTSIDE RECORDS SUMMARY | 2018-09-18 17:15 | XMS REPORT | Summary of Care ---
Author Author [facility] Organization [facility] Address Unknown Phone Unavailable Encounter YOGI Andrea(MECHELLE) [id number] Date(s): 04/05/16 - 04/06/16 [facility] [address] [place] [address]- Discharge Diagnosis: Abdominal pain Discharge Disposition: Home or Self Care Attending Physician: Yanet Smith DO Vital Signs 1 2 3 Most recent to oldest [Reference Range]: 165.1 cm (04/05/16 6:07 PM) Height 97.8 DegF (04/06/16 3:26 AM) 97.7 DegF (04/05/16 10:06 PM) 97.8 DegF (04/05/16 6:07 PM) Temperature Oral [96.4-99.1 DegF] 112/82 mmHg (04/06/16 3:26 AM) 129/88 mmHg (04/05/16 6:07 PM) Blood Pressure [90-140/60-90 mmHg] 125 mmHg (04/05/16 10:06 PM) Systolic Blood Pressure [90-140 mmHg] 73 mmHg (04/05/16 10:06 PM) Diastolic Blood Pressure [60-90 mmHg] 18 BRMIN (04/06/16 3:26 AM) 18 BRMIN (04/05/16 10:06 PM) 18 BRMIN (04/05/16 6:07 PM) Respiratory Rate [14-20 BRMIN] 72 bpm (04/06/16 3:26 AM) 66 bpm (04/05/16 10:06 PM) 71 bpm (04/05/16 6:07 PM) Peripheral Pulse Rate [60-100 bpm] 64.091 kg (04/05/16 6:07 PM) Weight 23.51 m2 (04/05/16 6:07 PM) Body Mass Index Problem List Condition Effective Dates Status Health Status Informant Abdominal Active pain(Confirmed) Anxiety(Confirmed) Active Anxiety(Confirmed) Active Biopsy of Active liver(Confirmed) Cancer of Active cervix(Confirmed) Depression(Confirmed Active ) Endometriosis(Confir Active med) Female genital organ Active symptoms(Confirmed)1 Gastric bypass Active operation(Confirmed) Kidney Resolved infection(Confirmed) Laparoscopic Active procedure(Confirmed) Lumbar puncture Active headache(Confirmed) Lysis of Active adhesions(Confirmed) Malabsorption(Confir Resolved med) Migraine(Confirmed) Active Polycystic ovarian Resolved syndrome(Confirmed) Sinusitis(Confirmed) Active 1CANCELLED Allergies, Adverse Reactions, Alerts Substance Reaction Severity Status aspirin Resolved Augmentin Active Imitrex Active Paper Tape Active shellfish Active Medications Dilaudid 1 mg, Route: IV, ONCE, Dosing Weight 64.091, kg, Start date: 04/05/16 21:58:[address], Stop date: 04/05/16 21:58:00 [employer] Start Date: 04/05/16 Stop Date: 04/05/16 Status: Completed Dilaudid 1 mg, Route: IV, ONCE, Dosing Weight 64.091, kg, Start date: 04/06/16 2:07:00 CS T, Stop date: 04/06/16 2:07:00 [employer] Start Date: 04/06/16 Stop Date: 04/06/16 Status: Completed Balsam 5/325 oral tablet 1 tab, PO, Q4-6H, PRN Pain 1-3/Temp > 100.4 F, X 5 day, # 16 tab, 0 Refill(s) Start Date: 04/06/16 Stop Date: 04/11/16 Status: Ordered ondansetron 4 mg, 1 tab, Route: PO, Drug form: TABDIS, ONCE, Dosing Weight 64.091, kg, Prior ity: STAT, Start date: 04/05/16 20:18:00 [employer], Stop date: 04/05/16 20:18:00 [employer] Notes: (Same as: Zofran ODT) Start Date: 04/05/16 Stop Date: 04/05/16 Status: Discontinued promethazine + sodium chloride 0.9% INJ 50 mL 25 mg, 1 mL, Route: IVPB, ONCE, Dosing Weight 64.091, kg, Priority: STAT, Start date: 04/05/16 21:58:00 [employer], Stop date: 04/05/16 21:58:00 [employer] Notes: Do not give IV push. (Same as: Phenergan) Start Date: 04/05/16 Stop Date: 04/05/16 Status: Completed Saline Flush 0.9% 10 mL, Route: IVP, Drug Form: INJ, Dosing Weight 61.818, kg, PRN, PRN Line Flush , Start date: 04/05/16 18:10:00 [employer], Duration: 30 day, Stop date: 05/05/16 18:09 :00 [employer] Notes: (Same as: BD Posiflush) Start Date: 04/05/16 Stop Date: 04/06/16 Status: Discontinued Sodium Chloride 0.9% (Bolus) IV 1,000 mL, 2,000 ml/hr, Infuse Over: 30 minutes, Route: IV, 1,000, 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 , ONCE, Priority: STAT, Dosing Weight 64.091 kg, Start date: 04/05/16 18:12:[address], Duration: 1 doses or times, Stop date: 04/05/16 18:12:00 [employer] Start Date: 04/05/16 Stop Date: 04/05/16 Status: Completed sodium chloride 0.9% 1000 ml INJ 1,000 mL + folic acid 1 mg + Vitamin B1 500 mg + multivitamin 10 m 1,000 mL, Rate: 100 ml/hr, Infuse over: 10.2 hr, Route: IV, Dosing Weight 64.091 kg, Total Volume: 1,015.2, Start date: 04/05/16 18:54:00 [employer], Duration: 1 doses or times, Stop date: 04/06/16 5:05:00 [employer] Start Date: 04/05/16 Stop Date: 04/05/16 Status: Completed Sodium Chloride 0.9% IV 1000 mL + M.V.I.-12 10 mL Daily + folic acid IV 1 mg Trini ly + thiamine IV 10 1,000 mL, Rate: 100 ml/hr, Infuse over: 10 hr, Route: IV, Dosing Weight 64.091 k g, Total Volume: 1,000, thiamine 500mg total, Start date: 04/05/16 18:15:00 [employer], Duration: 1 doses or times, Stop date: 04/06/16 4:14:00 [employer] Start Date: 04/05/16 Stop Date: 04/05/16 Status: Deleted Sodium Chloride 0.9% IV 1000 mL + M.V.I.-12 10 mL Daily + folic acid IV 1 mg Trini ly + thiamine IV 10 1,000 mL, Rate: 100 ml/hr, Infuse over: 10 hr, Route: IV, Dosing Weight 64.091 kg, Total Volume: 1,000, Start date: 04/05/16 18:13:00 [employer], Duration: 1 doses or times, Stop date: 04/06/16 4:12:00 [employer] Start Date: 04/05/16 Stop Date: 04/05/16 Status: Discontinued Results ELECTROLYTES Most recent to 1 oldest [Reference Range]: Sodium Lvl [135-145 137 mEq/L mEq/L] (04/05/16 8:21 PM) Potassium Lvl 4.0 mEq/L [3.5-5.1 mEq/L] (04/05/16 8:21 PM) Chloride Lvl [95-109 100 mEq/L mEq/L] (04/05/16 8:21 PM) CO2 [24-32 mEq/L] 30 mEq/L (04/05/16 8:21 PM) AGAP [10.0-20.0 11.0 mEq/L mEq/L] (04/05/16 8:21 PM) CHEM PANEL Most recent to 1 oldest [Reference Range]: Creatinine Lvl 0.63 mg/dL [0.50-1.40 mg/dL] (04/05/16 8:21 PM) eGFR 113 mL/min/1.73m2 1 *NA* (04/05/16 8:21 PM) BUN [7-22 mg/dL] 13 mg/dL (04/05/16 8:21 PM) B/C Ratio [6-25] 21 (04/05/16 8:21 PM) Glucose Lvl [70-99 93 mg/dL mg/dL] (04/05/16 8:21 PM) Total Protein 7.6 g/dL [6.4-8.4 g/dL] (04/05/16 8:21 PM) Albumin Lvl [3.5-5.0 4.2 g/dL g/dL] (04/05/16 8:21 PM) Globulin [2.7-4.2 3.4 g/dL g/dL] (04/05/16 8:21 PM) A/G Ratio [0.7-1.6] 1.2 (04/05/16 8: PM) Calcium Lvl 9.1 mg/dL [8.5-10.5 mg/dL] (04/05/16 8:21 PM) Phosphorus [2.5-4.5 3.2 mg/dL mg/dL] (04/05/16 8: PM) Magnesium Lvl 2.7 mg/dL [1.8-2.4 mg/dL] *HI* (04/05/16 8: PM) ALT [0-65 unit/L] 30 unit/L (04/05/16 8: PM) AST [0-37 unit/L] 10 unit/L (04/05/16 8: PM) Alk Phos [39-136 75 unit/L unit/L] (04/05/16 8: PM) Bili Total [0.2-1.3 0.3 mg/dL mg/dL] (04/05/16 8: PM) Amylase Lvl [25-115 37 unit/L unit/L] (04/05/16 8: PM) Lipase Lvl [73-393 147 unit/L unit/L] (04/05/16 8: PM) 1Result Comment: The eGFR is calculated [...] be mul tiplied by the estimated BMI. ENDOCRINOLOGY Most recent to 1 oldest [Reference Range]: S Preg [Negative] Negative *NA* (04/05/16 8:21 PM) URINE AND STOOL Most recent to 1 oldest [Reference Range]: UA Turbidity [Clear] Clear (04/06/16 12:00 AM) UA Color Ltyellow *NA* (04/06/16 12:00 AM) UA pH [5.0-8.0] 8.0 (04/06/16 12:00 AM) UA Spec Grav 1.003 [<=1.030] (04/06/16 12:00 AM) UA Glucose [Negative Negative mg/dL mg/dL] *NA* (04/06/16 12:00 AM) UA Blood [Negative] Negative (04/06/16 12:00 AM) UA Ketones [Negative Trace mg/dL mg/dL] *ABN* (04/06/16 12:00 AM) UA Protein [Negative Negative mg/dL mg/dL] (04/06/16 12:00 AM) UA Urobilinogen <=1.0 mg/dL [0.1-1.0 mg/dL] *NA* (04/06/16 12:00 AM) UA Bili [Negative] Negative *NA* (04/06/16 12:00 AM) UA Leuk Est Trace [Negative] *ABN* (04/06/16 12:00 AM) UA Nitrite Negative [Negative] (04/06/16 12:00 AM) UA WBC [0-5 /HPF] <1 /HPF (04/06/16 12:00 AM) UA RBC [0-2 /HPF] <1 /HPF (04/06/16 12:00 AM) UA Sq Epi [Few /LPF] Occasional /LPF *NA* (04/06/16 12:00 AM) HEMATOLOGY Most recent to 1 oldest [Reference Range]: WBC [3.7-10.4 K/CMM] 10.4 K/CMM (04/05/16 8:21 PM) RBC [4.20-5.40 3.70 M/CMM M/CMM] *LOW* (04/05/16 8:21 PM) Hgb [12.0-16.0 g/dL] 10.9 g/dL *LOW* (04/05/16 8:21 PM) Hct [36.0-48.0 %] 33.5 % *LOW* (04/05/16 8:21 PM) MCV [80.0-98.0 fL] 90.6 fL (04/05/16 8:21 PM) MCH [27.0-31.0 pg] 29.4 pg (04/05/16 8:21 PM) MCHC [32.0-36.0 32.4 g/dL g/dL] (04/05/16 8:21 PM) RDW [11.5-14.5 %] 15.9 % *HI* (04/05/16 8:21 PM) Platelet [133-450 420 K/CMM K/CMM] (04/05/16 8:21 PM) MPV [7.4-10.4 fL] 8.8 fL (04/05/16 8:21 PM) Segs [45.0-75.0 %] 82.4 % *HI* (04/05/16 8:21 PM) Lymphocytes 13.3 % [20.0-40.0 %] *LOW* (04/05/16 8:21 PM) Monocytes [2.0-12.0 4.1 % %] (04/05/16 8:21 PM) Basophils [0.0-1.0 0.2 % %] (04/05/16 8:21 PM) Segs-Bands # 8.6 K/CMM [1.5-8.1 K/CMM] *HI* (04/05/16 8:21 PM) Lymphocytes # 1.4 K/CMM [1.0-5.5 K/CMM] (04/05/16 8:21 PM) Monocytes # [0.0-0.8 0.4 K/CMM K/CMM] (04/05/16 8:21 PM) Immunizations Given and Recorded Vaccine Date Status Refusal Reason Hx pneumococcal vaccine 12/29/10 Given influenza virus vaccine, inactivated 07/18/12 Given Procedures Procedure Date Related Diagnosis Body Site Biopsy of liver 2011 Abdominal hysterectomy Back fusion Cholecystectomy Foot joint operations Gastric bypass operation Hernia repair Internal and external hemorrhoidectomy and anal fissurectomy Tonsil operation Social History Social History Type Response Alcohol Last use: none. Previous treatment: None. Smoking Status Former smoker; Type: Cigarettes; Tobacco use per day: 3; Number of years: 0.5; Ready to change: No; Exposure to Tobacco Smoke None; Cigarette Smoking Last 365 Days No; Reg Smoking Cessation Counseling No Assessment and Plan No data available for this section
--- OUTSIDE RECORDS SUMMARY | 2018-09-18 17:15 | XMS REPORT | Summary of Care ---
Author Organization Unknown Address Unknown Phone Unavailable Encounter YOGI Andrea(MECHELLE) [id number] Date(s): 02/09/14 - 02/09/14 [facility] [address] [place] [address] - [facility] Discharge Diagnosis: Contusion of foot, left Discharge Diagnosis: Pain in left foot Discharge Disposition: Home Physician Attending: Prasad Mcgowan MD Reason for Visit FOOT PAIN Vital Signs Most recent to 1 2 oldest [Reference Range]: Height 167.64 cm 167.64 cm (02/09/14 9:50 AM) (02/09/14 9:49 AM) Temperature Oral 97.6 DegF 97.7 DegF [96.4-99.1 DegF] (02/09/14 11:16 AM) (02/09/14 9:50 AM) Systolic Blood 117 mmHg 117 mmHg Pressure [90-140 (02/09/14 11:16 AM) (02/09/14 9:50 AM) mmHg] Diastolic Blood 79 mmHg 75 mmHg Pressure [60-90 (02/09/14 11:16 AM) (02/09/14 9:50 AM) mmHg] Respiratory Rate 18 BRMIN 18 BRMIN [14-20 BRMIN] (02/09/14 11:16 AM) (02/09/14 9:50 AM) Peripheral Pulse 63 bpm 75 bpm Rate [60-100 bpm] (02/09/14 11:16 AM) (02/09/14 9:50 AM) Weight 66.364 kg 66.364 kg (02/09/14 9:50 AM) (02/09/14 9:49 AM) Body Mass Index 23.61 m2 23.61 m2 (02/09/14 9:50 AM) (02/09/14 9:49 AM) Problem List Condition Effective Dates Status Health [...] Active Paper Tape Active shellfish Active Medications [place] 5/325 oral tablet 1-2 tab, PO, Q4-6H, Pain, # 12 tab, 0 Refill(s) Start Date: 02/09/14 Stop Date: 02/14/14 Status: Ordered [place] 5/325 oral tablet 1 tab, Route: PO, Dosing Weight 66.364, kg, ONCE, Start date: 02/09/14 10:08:00, Stop date: 02/09/14 10:08:00 Start Date: 02/09/14 Stop Date: 02/09/14 Status: Completed Medications Administered During Your Visit No data [...]
--- OUTSIDE RECORDS SUMMARY | 2018-09-18 17:15 | XMS REPORT | Summary of Care ---
Author Organization Unknown Address Unknown Phone Unavailable Encounter [facility](MECHELLE) [id number] Date(s): 09/13/14 - 09/30/14 [facility] [address] [place] [address]- [phone] Discharge Diagnosis: Transaminitis Discharge Diagnosis: Abdominal pain in female patient Discharge Disposition: Acute Care Physician Attending: Michael Ochoa MD Physician Admitting: Michael Ochoa MD Vital Signs 1 2 3 Most recent to oldest [Reference Range]: 167.64 cm (09/14/14 3:04 AM) 170.18 cm (09/13/14 9:59 PM) Height 98 DegF (09/29/14 11:32 PM) 97.9 DegF (09/29/14 7:10 PM) 97.5 DegF (09/29/14 4:14 PM) Temperature Oral [96.4-99.1 DegF] 123/85 mmHg (09/29/14 11:32 PM) 114/76 mmHg (09/29/14 7:10 PM) 110/71 mmHg (09/29/14 4:14 PM) Blood Pressure [90-140/60-90 mmHg] 16 BRMIN (09/29/14 11:32 PM) 16 BRMIN (09/29/14 7:10 PM) 16 BRMIN (09/29/14 4:14 PM) Respiratory Rate [14-20 BRMIN] 72 bpm (09/29/14 11:32 PM) 89 bpm (09/29/14 7:10 PM) 80 bpm (09/29/14 4:14 PM) Peripheral Pulse Rate [60-100 bpm] 65.455 kg (09/14/14 3:04 AM) 60 kg (09/13/14 9:59 PM) Weight 23.29 m2 (09/14/14 3:04 AM) 20.72 m2 (09/13/14 9:59 PM) Body Mass Index Problem List Condition [...] Active Paper Tape Active shellfish Active Medications Ambien 10 mg, 1 tab, Route: PO, Drug form: TAB, Bedtime, Dosing Weight 60, kg, PRN Inso mnia, Start date: 09/14/14 2:29:00, Duration: 30 day, Stop date: 10/14/14 2:28:0 0, Special Instructions: Notes: (Same As: Ambien) Start Date: 09/14/14 Stop Date: 09/14/14 Status: Discontinued amitriptyline 10 mg, 1 tab, Route: PO, Drug form: TAB, TID, Dosing Weight 65.455, kg, Start da te: 09/15/14 13:00:00, Duration: 30 day, Stop date: 10/15/14 9:00:00 Notes: (Same as: Elavil) Start Date: 09/15/14 Stop Date: 09/30/14 Status: Discontinued Benadryl 12.5 mg, Route: IVP, ONCE, Dosing Weight 60, kg, Priority: STAT, Start date: 07/27 2:12:00, Stop date: 09/14/14 2:12:00 Start Date: 09/14/14 Stop Date: 09/14/14 Status: Completed CeleXA 40 mg, 2 tab, Route: PO, Drug form: TAB, QAM, Dosing Weight 65.455, kg, Start da te: 09/15/14 9:00:00, Duration: 30 day, Stop date: 10/14/14 9:00:00 Notes: (Same As: CeleXA) Start Date: 09/15/14 Stop Date: 09/14/14 Status: Discontinued CeleXA 40 mg, 2 tab, Route: PO, Drug form: TAB, Daily, Dosing Weight 60, kg, Start date : 09/14/14 9:00:00, Duration: 30 day, Stop date: 10/13/14 9:00:00 Notes: (Same As: CeleXA) Start Date: 09/14/14 Stop Date: 09/30/14 Status: Discontinued d50 syringe 12.5 gm, 25 mL, Route: IVP, Drug Form: INJ, Dosing Weight 65.455, kg, PRN, PRN B lood Glucose Results, Start date: 09/21/14 0:17:00, Duration: 30 day, Stop date: 10/21/14 0:16:00 Start Date: 09/21/14 Stop Date: 09/30/14 Status: Discontinued Dextrose 5% with 0.45% NaCl IV 1,000 mL 1,000 mL, Rate: 125 ml/hr, Infuse over: 8 hr, Route: IV, Dosing Weight 65.455 kg , Total Volume: 1,000, Start date: 09/21/14 0:34:00, Stop date: 10/21/14 0:33:00 Start Date: 09/21/14 Stop Date: 09/30/14 Status: Discontinued diazepam 10 mg, 2 tab, Route: PO, Drug form: TAB, Q6H, Dosing Weight 65.455, kg, Start da te: 09/14/14 18:00:00, Duration: 30 day, Stop date: 10/14/14 15:00:00 Notes: (Same as: Valium) Start Date: 09/14/14 Stop Date: 09/30/14 Status: Discontinued diazepam 10 mg, 2 tab, Route: PO, Drug form: TAB, QID, Dosing Weight 60, kg, Start date: 09/14/14 9:00:00, Duration: 30 day, Stop date: 10/13/14 21:00:00 Notes: (Same as: Valium) Start Date: 09/14/14 Stop Date: 09/14/14 Status: Discontinued Dilaudid 1 mg, 1 mL, Route: IV, 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, Q4H, Dosing Weight 65.455, kg, PRN Pain S core 7-10, Start date: 09/15/14 10:53:00, Duration: 30 day, Stop date: 10/15/14 10:52:00 Start Date: 09/15/14 Stop Date: 09/19/14 Status: Discontinued Dilaudid 2 mg, 2 mL, Route: IV, 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, Q4H, Dosing Weight 65.455, kg, PRN Pain S core 7-10, Start date: 09/14/14 13:03:00, Stop date: 10/14/14 13:02:00 Start Date: 09/14/14 Stop Date: 09/15/14 Status: Discontinued Dilaudid 1 mg, 1 mL, Route: IVP, 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, Q6H, Dosing Weight 60, kg, PRN Pain Scor e 6-10, Priority: STAT, Start date: 09/14/14 2:34:00, Duration: 30 day, Stop ana cristina e: 10/14/14 2:33:00 Start Date: 09/14/14 Stop Date: 09/14/14 Status: Discontinued Dilaudid 2 mg, 2 mL, Route: IVP, 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, ONCE, Dosing Weight 60, kg, Priority: ST AT, Start date: 09/13/14 23:58:00, Stop date: 09/13/14 23:58:00 Start Date: 09/13/14 Stop Date: 09/14/14 Status: Completed diphenhydrAMINE 25 mg, 0.5 mL, Route: IVP, 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, ONCE, Dosing Weight 65.455, kg, PRN I tching, Start date: 09/14/14 11:44:00 Notes: (Same as: Benadryl) Start Date: 09/14/14 Stop Date: 09/14/14 Status: Completed Esgic 325 mg-50 mg-40 mg oral tablet 1 tab, Route: PO, Drug Form: TAB, Dosing Weight 65.455, kg, ONCE, PRN Headache 1 -5, Routine, Start date: 09/26/14 17:40:00, Stop date: 10/26/14 17:39:00 Notes: (dhxtokrilhhfr-ouinqsywyc-yfwervvx 325-50-40mg) Do not exceed 4 gm/day o f acetaminophen. (Same as: Esgic, Fioricet) Start Date: 09/26/14 Stop Date: 09/26/14 Status: Completed Esgic 325 mg-50 mg-40 mg oral tablet 1 tab, Route: PO, Drug Form: TAB, Dosing Weight 65.455, kg, ONCE, PRN Headache 1 -5, Start date: 09/26/14 22:00:00 Notes: (bthrhtjgpflne-gabxjkfnuz-ehmrapeq 325-50-40mg) Do not exceed 4 gm/day o f acetaminophen. (Same as: Esgic, Fioricet) Start Date: 09/26/14 Stop Date: 09/27/14 Status: Completed GI cocktail 30 ml, Route: PO, Drug Form: SUSP, Dosing Weight 65.455, kg, Q6H, PRN Pain Score 1-3, Routine, Start date: 09/25/14 10:24:00, Duration: 30 day, Stop date: 10/25 10:23:00 Notes: G.I. Cocktail=antacid with simethicone 22.5 mL - lidocaine viscous 7.5 mL Start Date: 09/25/14 Stop Date: 09/30/14 Status: Discontinued hydrOXYzine 25 mg, 1 tab, Route: PO, Drug form: TAB, Bedtime, Dosing Weight 65.455, kg, Star t date: 09/14/14 21:00:00, Duration: 30 day, Stop date: 10/13/14 21:00:00 Notes: (Same as: Atarax) Avoid alcohol. Start Date: 09/14/14 Stop Date: 09/30/14 Status: Discontinued ketOROLAC 30 mg, 1 mL, Route: IV, 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, Q6H, Dosing Weight 65.455, kg, PRN Pain Score 1-5, Start date: 09/26/14 22:02:00, Duration: 4 day, Stop date: 09/30/14 2 2:01:00 Notes: (Same as:Toradol) IV bolus must be given >15 seconds. Give IM administration slowly and deeply into the muscle.Not for use > 4 days MEDICATION WASTE Product Size: 30 mgProduct Wasted: ___ mg Start Date: 09/26/14 Stop Date: 09/30/14 Status: Discontinued morphine Sulfate 6 mg, Route: IVP, ONCE, Dosing Weight 60, kg, Priority: STAT, Start date: 22:17:00, Stop date: 09/13/14 22:17:00 Start Date: 09/13/14 Stop Date: 09/13/14 Status: Completed morphine Sulfate 4 mg, 2 mL, Route: IVP, 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, Q3H, Dosing Weight 60, kg, PRN Pain Scor e 6-10, Start date: 09/14/14 2:59:00, Stop date: 10/14/14 2:58:00 Notes: (Same as:MORPhine Sulfate) Start Date: 09/14/14 Stop Date: 09/14/14 Status: Discontinued morphine Sulfate 2 mg, 1 mL, Route: IV, 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, Q4H, Dosing Weight 60, kg, PRN Pain Score 1-5, Start date: 09/14/14 2:34:00, Duration: 30 day, Stop date: 10/14/14 2:33:00 Notes: (Same as:MORPhine Sulfate) Start Date: 09/14/14 Stop Date: 09/14/14 Status: Discontinued nicotine 21 mg, 1 patch, Route: TOP, Drug form: ERFILM, Daily, Dosing Weight 65.455, kg, Start date: 09/17/14 12:00:00, Duration: 30 day, Stop date: 10/17/14 9:00:00 Start Date: 09/17/14 Stop Date: 09/30/14 Status: Discontinued Eucha 10/325 oral tablet Route: PO, Drug Form: TAB, Dosing Weight 65.455, kg, Q6H, PRN Pain 4-6/Temp > 100.4 F, Start date: 09/14/14 13:02:00, Duration: 30 day, Stop date: 10/14/14 1 3:01:00 Notes: Do not exceed 4gm/day of acetaminophen. (Same as: Eucha 325/10) Start Date: 09/14/14 Stop Date: 09/19/14 Status: Discontinued Eucha 10/325 oral tablet 1-2 tab, PO, Q4-6H, PRN Pain, X 5 day, # 15 tab, 0 Refill(s) Start Date: 09/14/14 Stop Date: 09/19/14 Status: Completed Eucha 10/325 oral tablet 1 tab, Route: PO, Drug Form: TAB, Dosing Weight 60, kg, ONCE, STAT, Start date: 09/14/14 0:58:00, Stop date: 09/14/14 0:58:00 Start Date: 09/14/14 Stop Date: 09/14/14 Status: Completed normal saline 0.9% IV 1,000 mL 1,000 mL, Rate: 75 ml/hr, Infuse over: 13.3 hr, Route: IV, Dosing Weight 60 kg, Total Volume: 1,000, Start date: 09/14/14 2:25:00, Duration: 30 day, Stop date: 10/14/14 2:24:00 Start Date: 09/14/14 Stop Date: 09/14/14 Status: Discontinued ondansetron 4 mg, 2 mL, Route: IVP, 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, Q8H, Dosing Weight 60, kg, PRN Nausea & Vomiting, Start date: 09/14/14 2:59:00, Duration: 30 day, Stop date: 10/14/14 2 :58:00 Notes: (Same as: Rukhsana) MEDICATION WASTE Product Size: 4 mgProduct Was vinny: ___ mg Start Date: 09/14/14 Stop Date: 09/19/14 Status: Discontinued ondansetron 4 mg, 2 mL, Route: IVP, 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, Q4H, Dosing Weight 60, kg, PRN Nausea & Vomiting, Start date: 09/19/14 16:55:00, Duration: 30 day, Stop date: 10/19/14 16:54:00 Notes: (Same as: Rukhsana) MEDICATION WASTE Product Size: 4 mgProduct Was vinny: ___ mg Start Date: 09/19/14 Stop Date: 09/30/14 Status: Discontinued oxyCODONE 5 mg immediate release 5 mg, 1 tab, Route: PO, Drug form: TAB, Q4H, Dosing Weight 65.455, kg, PRN Pain Score 7-10, Start date: 09/19/14 16:54:00, Stop date: 10/19/14 16:53:00, for michael n Notes: (Same as: Roxicodone) Start Date: 09/19/14 Stop Date: 09/30/14 Status: Discontinued pantoprazole 40 mg, Route: IVP, 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, Q12H, Dosing Weight 60, kg, Priority: STAT, S tart date: 09/14/14 2:25:00, Duration: 30 day, Stop date: 10/13/14 21:00:00 Notes: For IV push reconstitute with 10 ml 0.9% sodium chloride and push over 2 minutes. (Same as: Protonix) Start Date: 09/14/14 Stop Date: 09/15/14 Status: Discontinued Phenergan 12.5 mg, 1 tab, Route: PO, Drug form: TAB, Q6H, Dosing Weight 65.455, kg, PRN Na usea & Vomiting, Start date: 09/19/14 16:54:00, Stop date: 10/19/14 16:53:00 Notes: (Same as: Phenergan) Start Date: 09/19/14 Stop Date: 09/26/14 Status: Discontinued Phenergan 12.5 mg, Route: IVPB, ONCE, Dosing Weight 60, kg, Priority: STAT, Start date: 22:17:00, Stop date: 09/13/14 22:17:00 Start Date: 09/13/14 Stop Date: 09/13/14 Status: Completed Phenergan + Sodium Chloride 0.9% IV 50 mL 12.5 mg, 0.5 mL, Route: IVPB, ONCE, Dosing Weight 60, kg, Priority: STAT, Start date: 09/13/14 23:59:00, Stop date: 09/13/14 23:59:00 Notes: Do not give IV push. (Same as: Phenergan) Start Date: 09/13/14 Stop Date: 09/14/14 Status: Completed Phenergan + Sodium Chloride 0.9% IV 50 mL 12.5 mg, 0.5 mL, Route: IVPB, Q6H, Dosing Weight 60, kg, PRN Nausea, Priority: S TAT, Start date: 09/14/14 2:26:00, Duration: 30 day, Stop date: 10/14/14 2:25:00 Notes: Do not give IV push. (Same as: Phenergan) Start Date: 09/14/14 Stop Date: 09/19/14 Status: Discontinued Phenergan 25 mg oral tablet 25 mg=1 tab, PO, Q6H, PRN Nausea, X 4 day, # 15 tab, 0 Refill(s) Start Date: 09/14/14 Stop Date: 09/18/14 Status: Completed Phenergan 25 mg rectal suppository 25 mg=1 supp, KS, Q6H, PRN Nausea & Vomiting, X 3 day, # 9 supp, 0 Refill(s) Start Date: 09/14/14 Stop Date: 09/17/14 Status: Completed promethazine 25 mg, 1 tab, Route: PO, Drug form: TAB, Q6H, Dosing Weight 65.455, kg, PRN Naus ea, Start date: 09/26/14 11:48:00, Duration: 30 day, Stop date: 10/26/14 11:47:0 0 Notes: (Same as: Phenergan) Start Date: 09/26/14 Stop Date: 09/30/14 Status: Discontinued promethazine 25 mg, 1 supp, Route: KS, Drug form: SUPP, Q6H, Dosing Weight 65.455, kg, PRN Na usea & Vomiting, Start date: 09/26/14 11:47:00, Duration: 30 day, Stop date: 10/26/14 11:46:00 Notes: (Same as: Phenergan) Start Date: 09/26/14 Stop Date: 09/30/14 Status: Discontinued Protonix 40 mg, 1 tab, Route: PO, Drug form: ECTAB, Q12H, Start date: 09/15/14 21:00:00, Duration: 30 day, Stop date: 10/15/14 9:00:00 Notes: Tablet should not be chewed or crushed.(Same as: Protonix) Start Date: 09/15/14 Stop Date: 09/30/14 Status: Discontinued Reglan 10 mg, Route: IVP, 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, ONCE, Dosing Weight 60, kg, Priority: STAT, S tart date: 09/14/14 1:31:00, Stop date: 09/14/14 1:31:00 Start Date: 09/14/14 Stop Date: 09/14/14 Status: Completed Saline Flush 0.9% 10 mL, Route: IVP, Drug Form: INJ, Dosing Weight 60, kg, PRN, PRN Line Flush, St art date: 09/13/14 22:17:00, Duration: 30 day, Stop date: 10/13/14 22:16:00 Notes: preservative free. Start Date: 09/13/14 Stop Date: 09/30/14 Status: Discontinued Saline Flush 0.9% 10 ml, Route: IVP, Drug Form: INJ, Dosing Weight 60, kg, PRN, PRN Line Flush, St art date: 09/14/14 2:59:00, Duration: 30 day, Stop date: 10/14/14 2:58:00 Notes: preservative free. Start Date: 09/14/14 Stop Date: 09/30/14 Status: Discontinued scopolamine 1.5 mg transdermal film 1 patch, Route: TOP, Drug Form: ERFILM, Dosing Weight 65.455, kg, Q72H, Start da te: 09/18/14 13:00:00, Duration: 30 day, Stop date: 10/15/14 13:00:00 Notes: Change patch every 72 hours (Same as: Transderm-Scop) Start Date: 09/18/14 Stop Date: 09/30/14 Status: Discontinued Sodium Chloride 0.9% (Bolus) IV 1,000 mL, Infuse Over: 1 hr, Route: IV, ONCE, Priority: STAT, Dosing Weight 60 k g, Start date: 09/13/14 22:17:00, Duration: 1 doses or times, Stop date: 22:17:00 Start Date: 09/13/14 Stop Date: 09/13/14 Status: Completed Sodium Chloride 0.9% IV 1,000 mL 1,000 mL, Rate: 60 ml/hr, Infuse over: 16.7 hr, Route: IV, Dosing Weight 60 kg, Total Volume: 1,000, Start date: 09/14/14 2:59:00, Stop date: 10/14/14 2:58:00 Start Date: 09/14/14 Stop Date: 09/19/14 Status: Discontinued Sodium Chloride 0.9% IV 500 mL 500 mL, Rate: 25 ml/hr, Infuse over: 20 hr, Route: IV, Dosing Weight 65.455 kg, Total Volume: 500, Start date: 09/16/14 12:22:00, Duration: 1 day, Stop date: 12:21:00 Start Date: 09/16/14 Stop Date: 09/16/14 Status: Discontinued Zofran 4 mg, 2 mL, Route: IVP, 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, Q4H, Dosing Weight 60, kg, PRN Nausea, P riority: STAT, Start date: 09/14/14 2:26:00, Duration: 30 day, Stop date: 2:25:00 Notes: (Same as: Zofran) MEDICATION WASTE Product Size: 4 mgProduct Was vinny: ___ mg Start Date: 09/14/14 Stop Date: 09/14/14 Status: Discontinued zolpidem 10 mg, 1 tab, Route: PO, Drug form: TAB, Bedtime, Dosing Weight 65.455, kg, PRN as needed for sleep, Start date: 09/14/14 13:01:00, Duration: 30 day, Stop date: 10/14/14 13:00:00 Notes: (Same As: Ronen) Start Date: 09/14/14 Stop Date: 09/30/14 Status: Discontinued Results ELECTROLYTES 1 2 3 Most recent to oldest [Reference Range]: 143 mEq/L (09/26/14 5:51 AM) 144 mEq/L (09/23/14 10:02 AM) 144 mEq/L (09/19/14 4:38 AM) Sodium Lvl [135-145 mEq/L] 3.5 mEq/L (09/26/14 5:51 AM) 4.1 mEq/L (09/23/14 10:02 AM) 3.6 mEq/L (09/19/14 4:38 AM) Potassium Lvl [3.5-5.1 mEq/L] 107 mEq/L (09/26/14 5:51 AM) 107 mEq/L (09/23/14 10:02 AM) 111 mEq/L *HI* (09/19/14 4:38 AM) Chloride Lvl [95-109 mEq/L] 27 mEq/L (09/26/14 5:51 AM) 29 mEq/L (09/23/14 10:02 AM) 24 mEq/L (09/19/14 4:38 AM) CO2 [24-32 mEq/L] 12.5 mEq/L (09/26/14 5:51 AM) 12.1 mEq/L (09/23/14 10:02 AM) 12.6 mEq/L (09/19/14 4:38 AM) AGAP [10.0-20.0 mEq/L] CHEM PANEL 1 2 3 Most recent to oldest [Reference Range]: 0.7 mg/dL (09/26/14 5:51 AM) 0.8 mg/dL (09/23/14 10:02 AM) 0.8 mg/dL (09/19/14 4:38 AM) Creatinine Lvl [0.5-1.4 mg/dL] 110 mL/min/1.73m2 1 *NA* (09/26/14 5:51 AM) 94 mL/min/1.73m2 2 *NA* (09/23/14 10:02 AM) 94 mL/min/1.73m2 3 *NA* (09/19/14 4:38 AM) eGFR 6 mg/dL *LOW* (09/26/14 5:51 AM) 4 mg/dL *LOW* (09/23/14 10:02 AM) 3 mg/dL *LOW* (09/19/14 4:38 AM) BUN [7-22 mg/dL] 5 *LOW* (09/23/14 10:02 AM) 4 *LOW* (09/19/14 4:38 AM) 5 *LOW* (09/18/14 2:56 PM) B/C Ratio [6-25] 82 mg/dL 4 (09/26/14 5:51 AM) 62 mg/dL 5 *LOW* (09/23/14 10:02 AM) 97 mg/dL 6 (09/19/14 4:38 AM) Glucose Lvl [70-99 mg/dL] 5.6 g/dL *LOW* (09/23/14 10:02 AM) 5.1 g/dL *LOW* (09/19/14 4:38 AM) 5.8 g/dL *LOW* (09/18/14 2:56 PM) Total Protein [6.4-8.4 g/dL] 3.4 g/dL *LOW* (09/23/14 10:02 AM) 2.9 g/dL *LOW* (09/19/14 4:38 AM) 3.4 g/dL *LOW* (09/18/14 2:56 PM) Albumin Lvl [3.5-5.0 g/dL] 2.2 g/dL (09/23/14 10:02 AM) 2.2 g/dL (09/19/14 4:38 AM) 2.4 g/dL (09/18/14 2:56 PM) Globulin [2.0-4.0 g/dL] 1.5 (09/23/14 10:02 AM) 1.3 (09/19/14 4:38 AM) 1.4 (09/18/14 2:56 PM) A/G Ratio [0.7-1.6] 7.9 mg/dL *LOW* (09/26/14 5:51 AM) 8.3 mg/dL *LOW* (09/23/14 10:02 AM) 8.0 mg/dL *LOW* (09/19/14 4:38 AM) Calcium Lvl [8.5-10.5 mg/dL] 3.9 mg/dL (09/14/14 6:12 AM) 3.0 mg/dL (09/13/14 11:03 PM) Phosphorus [2.5-4.5 mg/dL] 1.8 mg/dL (09/14/14 6:12 AM) 1.9 mg/dL (09/13/14 11:03 PM) Magnesium Lvl [1.8-2.4 mg/dL] 122 unit/L *HI* (09/23/14 10:02 AM) 177 unit/L *HI* (09/19/14 4:38 AM) 233 unit/L *HI* (09/18/14 2:56 PM) ALT [0-65 unit/L] 29 unit/L (09/23/14 10:02 AM) 32 unit/L (09/19/14 4:38 AM) 51 unit/L *HI* (09/18/14 2:56 PM) AST [0-37 unit/L] 238 unit/L *HI* (09/23/14 10:02 AM) 225 unit/L *HI* (09/19/14 4:38 AM) 237 unit/L *HI* (09/18/14 2:56 PM) Alk Phos [39-136 unit/L] 0.3 mg/dL (09/23/14 10:02 AM) 0.3 mg/dL (09/19/14 4:38 AM) 0.2 mg/dL (09/18/14 2:56 PM) Bili Total [0.2-1.3 mg/dL] 43 unit/L (09/13/14 11:03 PM) Amylase Lvl [25-115 unit/L] 131 unit/L (09/15/14 6:17 AM) 178 unit/L (09/13/14 11:03 PM) Lipase Lvl [73-393 unit/L] 1Result Comment: The eGFR is calculated using [...] values reflect the clinical guidelines of the [place] [employer]. 5Interpretive Data: Adult reference range values reflect the clinical guidelines of the [place] [employer]. 6Interpretive Data: Adult reference range values reflect the clinical guidelines of the [place] [employer]. CARDIAC ENZYMES 1 2 3 Most recent to oldest [Reference Range]: 113 unit/L (09/13/14 11:03 PM) Total CK [12-191 unit/L] URINE AND STOOL 1 2 3 Most recent to oldest [Reference Range]: Clear (09/13/14 11:03 PM) UA Turbidity [Clear] Ltyellow *NA* (09/13/14 11:03 PM) UA Color 5.0 (09/13/14 11:03 PM) UA pH [5.0-8.0] 1.020 (09/13/14 11:03 PM) UA Spec Grav [<=1.030] Negative mg/dL *NA* (09/13/14 11:03 PM) UA Glucose [Negative mg/dL] Negative (09/13/14 11:03 PM) UA Blood [Negative] Negative mg/dL *NA* (09/13/14 11:03 PM) UA Ketones [Negative mg/dL] Negative mg/dL (09/13/14 11:03 PM) UA Protein [Negative mg/dL] <=1.0 mg/dL *NA* (09/13/14 11:03 PM) UA Urobilinogen [0.1-1.0 mg/dL] Negative *NA* (09/13/14 11:03 PM) UA Bili [Negative] Negative (09/13/14 11:03 PM) UA Leuk Est [Negative] Negative (09/13/14 11:03 PM) UA Nitrite [Negative] Occasional /LPF *NA* (09/13/14 11:03 PM) UA Sq Epi [Few /LPF] HEMATOLOGY 1 2 3 Most recent to oldest [Reference Range]: 3.8 K/CMM (09/23/14 10:02 AM) 4.1 K/CMM (09/19/14 4:38 AM) 4.2 K/CMM (09/16/14 5:00 AM) WBC [3.7-10.4 K/CMM] 3.75 M/CMM *LOW* (09/23/14 10:02 AM) 3.41 M/CMM *LOW* (09/19/14 4:38 AM) 3.42 M/CMM *LOW* (09/16/14 5:00 AM) RBC [4.20-5.40 M/CMM] 12.0 g/dL (09/23/14 10:02 AM) 11.0 g/dL *LOW* (09/19/14 4:38 AM) 11.1 g/dL *LOW* (09/16/14 5:00 AM) Hgb [12.0-16.0 g/dL] 36.0 % (09/23/14 10:02 AM) 32.8 % *LOW* (09/19/14 4:38 AM) 32.9 % *LOW* (09/16/14 5:00 AM) Hct [36.0-48.0 %] 95.9 fL (09/23/14 10:02 AM) 96.2 fL (09/19/14 4:38 AM) 96.2 fL (09/16/14 5:00 AM) MCV [80.0-98.0 fL] 32.1 pg *HI* (09/23/14 10:02 AM) 32.4 pg *HI* (09/19/14 4:38 AM) 32.3 pg *HI* (09/16/14 5:00 AM) MCH [27.0-31.0 pg] 33.5 g/dL (09/23/14 10:02 AM) 33.7 g/dL (09/19/14 4:38 AM) 33.6 g/dL (09/16/14 5:00 AM) MCHC [32.0-36.0 g/dL] 13.5 % (09/23/14 10:02 AM) 14.0 % (09/19/14 4:38 AM) 13.9 % (09/16/14 5:00 AM) RDW [11.5-14.5 %] 215 K/CMM (09/23/14 10:02 AM) 174 K/CMM (09/19/14 4:38 AM) 185 K/CMM (09/16/14 5:00 AM) Platelet [133-450 K/CMM] 10.2 fL (09/23/14 10:02 AM) 10.5 fL *HI* (09/19/14 4:38 AM) 10.9 fL *HI* (09/16/14 5:00 AM) MPV [7.4-10.4 fL] 36.1 % *LOW* (09/23/14 10:02 AM) 27.2 % *LOW* (09/19/14 4:38 AM) 16.2 % *LOW* (09/16/14 5:00 AM) Segs [45.0-75.0 %] 38.1 % (09/23/14 10:02 AM) 51.5 % *HI* (09/19/14 4:38 AM) 60.9 % *HI* (09/16/14 5:00 AM) Lymphocytes [20.0-40.0 %] 7.9 % (09/23/14 10:02 AM) 7.2 % (09/19/14 4:38 AM) 7.1 % (09/16/14 5:00 AM) Monocytes [2.0-12.0 %] 17.0 % *HI* (09/23/14 10:02 AM) 13.5 % *HI* (09/19/14 4:38 AM) 15.0 % *HI* (09/16/14 5:00 AM) Eosinophils [0.0-4.0 %] 0.9 % (09/23/14 10:02 AM) 0.6 % (09/19/14 4:38 AM) 0.8 % (09/16/14 5:00 AM) Basophils [0.0-1.0 %] 1.4 K/CMM *LOW* (09/23/14 10:02 AM) 1.1 K/CMM *LOW* (09/19/14 4:38 AM) 0.7 K/CMM *LOW* (09/16/14 5:00 AM) Segs-Bands # [1.5-8.1 K/CMM] 1.5 K/CMM (09/23/14 10:02 AM) 2.1 K/CMM (09/19/14 4:38 AM) 2.5 K/CMM (09/16/14 5:00 AM) Lymphocytes # [1.0-5.5 K/CMM] 0.3 K/CMM (09/23/14 10:02 AM) 0.3 K/CMM (09/19/14 4:38 AM) 0.3 K/CMM (09/16/14 5:00 AM) Monocytes # [0.0-0.8 K/CMM] 0.7 K/CMM *HI* (09/23/14 10:02 AM) 0.6 K/CMM *HI* (09/19/14 4:38 AM) 0.6 K/CMM *HI* (09/16/14 5:00 AM) Eosinophils # [0.0-0.5 K/CMM] Normal (09/16/14 5:00 AM) RBC Morph Normal (09/16/14 5:00 AM) Plt Morph 14.2 seconds (09/14/14 6:12 AM) 12.9 seconds (09/13/14 11:03 PM) PT [12.0-14.7 seconds] 1.09 7 (09/14/14 6:12 AM) 0.97 8 (09/13/14 11:03 PM) INR [0.85-1.17] 31.6 seconds 9 (09/14/14 6:12 AM) 33.0 seconds 10 (09/13/14 11:03 PM) PTT [22.9-35.8 seconds] 7Interpretive Data: RECOMMENDED RANGES FOR PROTIME INR: 2.0-3.0 for most medical and surgical thromboembolic states. 2.5-3.5 for artificial heart valves and recurrent embolism. INR SHOULD BE USED ONLY FOR PATIENTS ON STABLE ANTICOAGULANT THERAPY. 8Interpretive Data: RECOMMENDED RANGES FOR PROTIME INR: 2.0-3.0 for most medical and surgical thromboembolic states. 2.5-3.5 for artificial heart valves and recurrent embolism. INR SHOULD BE USED ONLY FOR PATIENTS ON STABLE ANTICOAGULANT THERAPY. 9Interpretive Data: Heparin Therapeutic Range: 57 - 92 Seconds 10Interpretive Data: Heparin Therapeutic Range: 57 - 92 Seconds Immunizations Vaccine Date Refusal Reason Hx pneumococcal [...] Plan Extracted from: Title: Clinical Document Author: Nato Covarrubias MD Date: 09/29/14 [facility] Daily Progress Note [facility] Nato Covarrubias MD SUBJECTIVE: pt seen and examined, events noted She denies any headaches or dizziness at this time. She denies any fevers or chills. She denies any nausea or vomiting. She denies any neck pain or stiffness. She denies any chest pain or pressure or palpitations. She denies any shortness of breath. She denies any abdominal pain or any changes in his bowel or bladder habits. She denies any rashes or any focal motor or sensory deficits. She denies any depression or anxiety, and all other systems have been reviewed and are negative except as listed. OBJECTIVE: Vitals and Temp: VitalsTmp(F)[id number] 09/29 16:[id number]------ 09/29 12:[id number]/7316------ 09/29 08:[id number]------ 09/29 04:[id number]------ 09/29 00:[id number]------ 24 Hr Tmax: 98F (36.67c) at 09/29 04:40Vital Signs are the last 5 in the past 48 hours. Labs (Last four charted values) WBC 3.8(SEPTEMBER 23)4.1(SEPTEMBER 19)4.2(SEPTEMBER 16)4.1(SEPTEMBER 15) Hgb 12.0(SEPTEMBER 23)L 11.0(SEPTEMBER 19)L 11.1(SEPTEMBER 16)L 11.9(SEPTEMBER 15) Hct 36.0(SEPTEMBER 23)L 32.8(SEPTEMBER 19)L 32.9(SEPTEMBER 16)L 35.2(SEPTEMBER 15) Plt 215(SEPTEMBER 23)174(SEPTEMBER 19)185(SEPTEMBER 16)202(SEPTEMBER 15) Na 143(SEPTEMBER 26)144(SEPTEMBER 23)144(SEPTEMBER 19)144(SEPTEMBER 18) K 3.5(SEPTEMBER 26)4.1(SEPTEMBER 23)3.6(SEPTEMBER 19)3.9(SEPTEMBER 18) CO2 27(SEPTEMBER 26)29(SEPTEMBER 23)24(SEPTEMBER 19)L 22(SEPTEMBER 18) Cl 107(SEPTEMBER 26)107(SEPTEMBER 23)H 111(SEPTEMBER 19)H 113(SEPTEMBER 18) Cr 0.7(SEPTEMBER 26)0.8(SEPTEMBER 23)0.8(SEPTEMBER 19)0.8(SEPTEMBER 18) BUN L 6(SEPTEMBER 26)L 4(SEPTEMBER 23)L 3(SEPTEMBER 19)L 4(SEPTEMBER 18) Glucose Random 82(SEPTEMBER 26)L 62(SEPTEMBER 23)97(SEPTEMBER 19)H 106(SEPTEMBER 18) Mg 1.8(SEPTEMBER 14)1.9(SEPTEMBER 13) Phos 3.9(SEPTEMBER 14)3.0(SEPTEMBER 13) Ca L 7.9(SEPTEMBER 26)L 8.3(SEPTEMBER 23)L 8.0(SEPTEMBER 19)L 7.8(SEPTEMBER 18) PT 14.2(SEPTEMBER 14)12.9(SEPTEMBER 13) INR 1.09(SEPTEMBER 14)0.97(SEPTEMBER 13) PTT 31.6(SEPTEMBER 14)33.0(SEPTEMBER 13) Total CK 113(SEPTEMBER 13) ASSESSMENT & EXAM: General: in no apparent distress at this time. Eyes: Pupils equal, round and reactive to light. Eyes normal inspection. ENT: Ears normal. Nose normal. Pharynx normal. Neck: Normal inspection. No jugular venous distention. Neck supple. CVS: Heart sounds normal. Pulses normal. no murmurs Respiratory: No respiratory distress. Breath sounds normal. no wheezing Abdomen: Soft and nontender. no organomegaly Back: Normal inspection. Skin: Skin warm and dry. Normal skin color. Extremities: Extremities exhibit normal ROM. No lower extremity edema. Neuro: Oriented X 3. No motor deficit. DIAGNOSES & PROBLEMS: 1. Elevated liver function tests. 2. abdominal pain and nausea 3. Mayelin-en-Y gastric bypass surgery. 4. Normocytic anemia 5. Spinal fusion. 6. cholelithiasis status post cholecystectomy 7. Depression. PLAN & TREATMENT: Continue PPI regular diet. Monitor BG pt is accepted at [facility] await transfer MEDICATIONS Scheduled Meds (7):amitriptyline, citalopram (CeleXA), diazepam, hydrOXYzine, nicotine, pantoprazole (Protonix), scopolamine (scopolamine 1.5 mg transdermal film) Unscheduled Meds: None PRN Meds (10):Dextrose 50% in Water IV (d50 syringe), GI cocktail, ketOROLAC, ondansetron, oxyCODONE (oxyCODONE 5 mg immediate release), promethazine, promethazine, sodium chloride (Saline Flush 0.9%), sodium chloride (Saline Flush 0.9%), zolpidem One Time Meds: None Continuous Infusions (1):Dextrose 5% with 0.45% NaCl IV 1,000 mL
--- OUTSIDE RECORDS SUMMARY | 2018-09-18 17:15 | XMS REPORT | Summary of Care ---
Author Organization Unknown Address Unknown Phone Unavailable Encounter [facility](MECHELLE) [id number] Date(s): 12/12/13 - 12/17/13 [facility] [address] [address] Discharge Disposition: Home Physician Attending: Corey Bolaños MD Physician Admitting: Corey Bolaños MD Reason for Visit NAUSEA AND VOMITING Vital Signs 1 2 3 Most recent to oldest [Reference Range]: 170.18 cm (12/10/13 1:46 PM) Height 98.2 DegF (12/17/13 12:00 PM) 98.0 DegF (12/17/13 8:00 AM) 97.4 DegF (12/17/13 5:51 AM) Temperature Oral [96.4-99.1 DegF] 101 mmHg (12/17/13 12:00 PM) 113 mmHg (12/17/13 8:00 AM) 125 mmHg (12/17/13 5:51 AM) Systolic Blood Pressure [90-140 mmHg] 69 mmHg (12/17/13 12:00 PM) 78 mmHg (12/17/13 8:00 AM) 82 mmHg (12/17/13 5:51 AM) Diastolic Blood Pressure [60-90 mmHg] 17 BRMIN (12/17/13 12:00 PM) 18 BRMIN (12/17/13 8:00 AM) 17 BRMIN (12/17/13 12:00 AM) Respiratory Rate [14-20 BRMIN] 86 bpm (12/17/13 12:00 PM) 80 bpm (12/17/13 8:00 AM) 88 bpm (12/17/13 5:51 AM) Peripheral Pulse Rate [60-100 bpm] 63.636 kg (12/10/13 1:46 PM) Weight 21.97 m2 (12/10/13 1:46 PM) Body Mass Index Problem List Condition [...] PO, Drug form: TAB, Q4H, Dosing Weight 64.545, kg, PRN An n 1-3/Temp > 100.4 F, Start date: 12/10/13 11:29:00, Duration: 30 day, Stop date: 01/09/14 11:28:00 Notes: Do not exceed 4 gm/day. (Same as: Tylenol) Start Date: 12/10/13 Stop Date: 12/17/13 Status: Discontinued Ambien 10 mg, 1 tab, Route: PO, Drug form: TAB, Bedtime, Dosing Weight 63.636, kg, Star t date: 12/10/13 23:00:00, Duration: 30 day, Stop date: 01/09/14 21:00:00 Notes: (Same As: Ambien) Start Date: 12/10/13 Stop Date: 12/17/13 Status: Discontinued CeleXA 40 mg, 2 tab, Route: PO, Drug form: TAB, QAM, Dosing Weight 63.636, kg, Start da te: 12/11/13 9:00:00, Duration: 30 day, Stop date: 01/09/14 9:00:00 Notes: (Same As: CeleXA) Start Date: 12/11/13 Stop Date: 12/17/13 Status: Discontinued chlordiazePOXIDE 25 mg oral capsule 25 mg, 1 cap, Route: PO, Drug form: CAP, QID, Dosing Weight 63.636, kg, PRN as n eeded for anxiety, Start date: 12/11/13 5:45:00, Duration: 30 day, Stop date: 5:44:00 Start Date: 12/11/13 Stop Date: 12/17/13 Status: Discontinued D5W 1/2NS + KCL 20mEq/L 1000ml (Premix) 1,000 mL 1,000 mL, Rate: 100 ml/hr, Infuse over: 10 hr, Route: IV, Dosing Weight 64.545 k g, Total Volume: 1,000, Start date: 12/10/13 11:29:00, Duration: 30 day, Stop da te: 01/09/14 11:28:00 Notes: PREMIX IV - Do Not Alter Start Date: 12/10/13 Stop Date: 12/16/13 Status: Discontinued Depacon + Sodium Chloride 0.9% IV 50 mL 500 mg, 5 mL, Route: IVPB, 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, ONCE, Dosing Weight 63.636, kg, Start date: 12/13/13 8:35:00, Stop date: 12/13/13 8:35:00 Notes: Dilute in at least 50ml D5W or NS. Infusion rate=20 mg/min(Same As: Depac on) Start Date: 12/13/13 Stop Date: 12/13/13 Status: Completed dexamethasone + Sodium Chloride 0.9% IV 50 mL 10 mg, 2.5 mL, Route: IVPB, 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, ONCE, Dosing Weight 63.636, kg, Star t date: 12/11/13 10:08:00, Stop date: 12/11/13 10:08:00 Start Date: 12/11/13 Stop Date: 12/11/13 Status: Completed Dextrose 50% Syringe 25 gm, 50 mL, Route: IV, Drug Form: INJ, Dosing Weight 63.636, kg, PRN, PRN Bloo d Glucose Results, Start date: 12/12/13 12:48:00, Duration: 30 day, Stop date: 0 01/11/14 12:47:00 Start Date: 12/12/13 Stop Date: 12/17/13 Status: Discontinued diazepam 10 mg, 2 tab, Route: PO, Drug form: TAB, Q6H, Dosing Weight 63.636, kg, Start da te: 12/11/13 6:00:00, Duration: 30 day, Stop date: 01/10/14 0:00:00 Notes: (Same as: Valium) Start Date: 12/11/13 Stop Date: 12/17/13 Status: Discontinued Dilaudid 0.8 mg, 0.8 mL, Route: IV, 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, Q6H, Dosing Weight 63.636, kg, PRN Se renato Pain, Start date: 12/11/13 11:22:00, Stop date: 01/10/14 11:21:00 Start Date: 12/11/13 Stop Date: 12/17/13 Status: Discontinued Dilaudid 0.5 mg, 0.5 mL, Route: IV, 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, Q3H, Dosing Weight 64.545, kg, PRN Pa in, Start date: 12/10/13 11:33:00, Duration: 30 day, Stop date: 01/09/14 11:32:0 0 Start Date: 12/10/13 Stop Date: 12/11/13 Status: Discontinued docusate 100 mg, 1 cap, Route: PO, Drug form: CAP, BID, Dosing Weight 64.545, kg, PRN as needed for constipation, Start date: 12/10/13 11:29:00, Duration: 30 day, Stop d ate: 01/09/14 11:28:00 Notes: (Same as: Colace) (Do Not Crush) Start Date: 12/10/13 Stop Date: 12/17/13 Status: Discontinued gabapentin 300 mg, 1 cap, Route: PO, Drug form: CAP, Q8H, Dosing Weight 63.636, kg, Start d ate: 12/12/13 9:30:00, Duration: 30 day, Stop date: 01/11/14 8:00:00 Notes: (Same as: Neurontin) Start Date: 12/12/13 Stop Date: 12/17/13 Status: Discontinued hyoscyamine 0.125 mg, 1 tab, Route: SL, Drug form: TAB, Q6H, Dosing Weight 63.636, kg, PRN a s needed for spasm, Start date: 12/11/13 5:46:00, Duration: 30 day, Stop date: 0 01/10/14 5:45:00 Notes: (Same as: Levsin) Take 30 min before meal Start Date: 12/11/13 Stop Date: 12/17/13 Status: Discontinued ketorolac 30 mg, 1 mL, Route: IV, 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, Q6H, Dosing Weight 63.636, kg, PRN Pain Score 4-6, Start date: 12/11/13 11:21:00, Duration: 4 day, Stop date: 12/15/13 1 1:20:00 Notes: (Same as:Toradol) IV bolus must be given >15 seconds. Give IM administration slowly and deeply into the muscle. Not for use > 4 days Start Date: 12/11/13 Stop Date: 12/15/13 Status: Completed MiraLax 17 gm, 1 pkt, Route: PO, Drug form: PWDR, BID, Dosing Weight 63.636, kg, Start d ate: 12/17/13 9:00:00, Duration: 30 day, Stop date: 01/15/14 17:00:00 Notes: Dissolve in 8 oz of water or juice.(Same as: Miralax) Start Date: 12/17/13 Stop Date: 12/17/13 Status: Discontinued MiraLax 17 gm, 1 pkt, Route: PO, Drug form: PWDR, Daily, Dosing Weight 63.636, kg, Start date: 12/11/13 9:00:00, Duration: 30 day, Stop date: 01/09/14 9:00:00 Notes: Dissolve in 8 oz of water or juice.(Same as: Miralax) Start Date: 12/11/13 Stop Date: 12/16/13 Status: Discontinued Multiple Vitamins with Minerals oral tablet 1 tab, Route: PO, Drug Form: TAB, Dosing Weight 63.636, kg, Daily, Start date: 0 12/11/13 9:00:00, Duration: 30 day, Stop date: 01/09/14 9:00:00 Notes: (Same as:Thera-M, Theragran-M) Give with food. Start Date: 12/11/13 Stop Date: 12/17/13 Status: Discontinued Phenergan + Sodium Chloride 0.9% IV 50 mL 25 mg, 1 mL, Route: IVPB, ONCE, Dosing Weight 63.636, kg, Start date: 12/11/13 1 0:09:00, Stop date: 12/11/13 10:09:00 Notes: Do not give IV push. (Same as: Phenergan) Start Date: 12/11/13 Stop Date: 12/11/13 Status: Completed promethazine + Sodium Chloride 0.9% IV 50 mL 25 mg, 1 mL, Route: IVPB, Q4H, Dosing Weight 63.636, kg, PRN Nausea & Vomiting, Start date: 12/16/13 7:17:00, Duration: 30 day, Stop date: 01/15/14 7:16:00 Notes: Do not give IV push. (Same as: Phenergan) Start Date: 12/16/13 Stop Date: 12/17/13 Status: Discontinued promethazine + Sodium Chloride 0.9% IV 50 mL 12.5 mg, 0.5 mL, Route: IVPB, Q4H, Dosing Weight 64.545, kg, PRN Nausea & Vomiting, Start date: 12/10/13 11:34:00, Duration: 30 day, Stop date: 01/09/14 11:33:00 Notes: Do not give IV push. (Same as: Phenergan) Start Date: 12/10/13 Stop Date: 12/16/13 Status: Discontinued Protonix 40 mg, Route: IVP, 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, Before Dinner, Dosing Weight 64.545, kg, Star t date: 12/10/13 16:30:00, Duration: 30 day, Stop date: 01/08/14 16:30:00 Notes: For IV push reconstitute with 10 ml 0.9% sodium chloride and push over 2 minutes. (Same as: Protonix) Start Date: 12/10/13 Stop Date: 12/11/13 Status: Discontinued Protonix 40 mg, 1 tab, Route: PO, Drug form: ECTAB, Before Dinner, Dosing Weight 63.636, kg, Start date: 12/11/13 16:30:00, Duration: 30 day, Stop date: 01/09/14 16:30:0 0 Notes: Tablet should not be chewed or crushed.(Same as: Protonix) Start Date: 12/11/13 Stop Date: 12/17/13 Status: Discontinued Saline Flush 0.9% 5 ml, Route: IVP, Drug Form: INJ, Dosing Weight 64.545, kg, PRN, PRN Line Flush, Start date: 12/10/13 11:29:00, Duration: 30 day, Stop date: 01/09/14 11:28:00 Notes: Same as: BD Posiflush Sterile Start Date: 12/10/13 Stop Date: 12/17/13 Status: Discontinued zolpidem 10 mg, Route: PO, Drug form: TAB, Bedtime, Dosing Weight 63.636, kg, PRN as need ed for sleep, Start date: 12/11/13 5:46:00, Duration: 30 day, Stop date: 4 5:45:00 Start Date: 12/11/13 Stop Date: 12/11/13 Status: Deleted Results ELECTROLYTES 1 2 3 Most recent to oldest [Reference Range]: 139 mEq/L (12/16/13 8:31 AM) 140 mEq/L (12/15/13 8:54 AM) 141 mEq/L (12/13/13 5:18 AM) Sodium Lvl [135-145 mEq/L] 5.9 mEq/L *HI* (12/16/13 8:31 AM) 5.2 mEq/L *HI* (12/15/13 8:54 AM) 4.6 mEq/L (12/13/13 5:18 AM) Potassium Lvl [3.5-5.1 mEq/L] 107 mEq/L (12/16/13 8:31 AM) 104 mEq/L (12/15/13 8:54 AM) 107 mEq/L (12/13/13 5:18 AM) Chloride Lvl [95-109 mEq/L] 30 mEq/L (12/16/13 8:31 AM) 30 mEq/L (12/15/13 8:54 AM) 27 mEq/L (12/13/13 5:18 AM) CO2 [24-32 mEq/L] 7.9 mEq/L *LOW* (12/16/13 8:31 AM) 11.2 mEq/L (12/15/13 8:54 AM) 11.6 mEq/L (12/13/13 5:18 AM) AGAP [10.0-20.0 mEq/L] CHEM PANEL 1 2 3 Most recent to oldest [Reference Range]: 0.8 mg/dL (12/16/13 8:31 AM) 0.8 mg/dL (12/15/13 8:54 AM) 0.7 mg/dL (12/13/13 5:18 AM) Creatinine Lvl [0.5-1.4 mg/dL] 94 mL/min/1.73m2 1 *NA* (12/16/13 8:31 AM) 94 mL/min/1.73m2 2 *NA* (12/15/13 8:54 AM) 111 mL/min/1.73m2 3 *NA* (12/13/13 5:18 AM) eGFR 11 mg/dL (12/16/13 8:31 AM) 13 mg/dL (12/15/13 8:54 AM) 11 mg/dL (12/13/13 5:18 AM) BUN [7-22 mg/dL] 14 (12/16/13 8:31 AM) 16 (12/15/13 8:54 AM) 16 (12/13/13 5:18 AM) B/C Ratio [6-25] 93 mg/dL 4 (12/16/13 8:31 AM) 77 mg/dL 5 (12/15/13 8:54 AM) 82 mg/dL 6 (12/13/13 5:18 AM) Glucose Lvl [70-99 mg/dL] 6.4 g/dL (12/16/13 8:31 AM) 6.7 g/dL (12/15/13 8:54 AM) 5.2 g/dL *LOW* (12/13/13 5:18 AM) Total Protein [6.4-8.4 g/dL] 3.4 g/dL *LOW* (12/16/13 8:31 AM) 3.7 g/dL (12/15/13 8:54 AM) 2.9 g/dL *LOW* (12/13/13 5:18 AM) Albumin Lvl [3.5-5.0 g/dL] 3.0 g/dL (12/16/13 8:31 AM) 3.0 g/dL (12/15/13 8:54 AM) 2.3 g/dL (12/13/13 5:18 AM) Globulin [2.0-4.0 g/dL] 1.1 (12/16/13 8:31 AM) 1.2 (12/15/13 8:54 AM) 1.3 (12/13/13 5:18 AM) A/G Ratio [0.7-1.6] 9.5 mg/dL (12/16/13 8:31 AM) 9.2 mg/dL (12/15/13 8:54 AM) 8.2 mg/dL *LOW* (12/13/13 5:18 AM) Calcium Lvl [8.5-10.5 mg/dL] 1.9 mg/dL (12/10/13 1:40 PM) Magnesium Lvl [1.8-2.4 mg/dL] 332 unit/L *HI* (12/16/13 8:31 AM) 329 unit/L *HI* (12/15/13 8:54 AM) 249 unit/L *HI* (12/13/13 5:18 AM) ALT [0-65 unit/L] 142 unit/L *HI* (12/16/13 8:31 AM) 116 unit/L *HI* (12/15/13 8:54 AM) 65 unit/L *HI* (12/13/13 5:18 AM) AST [0-37 unit/L] 262 unit/L *HI* (12/16/13 8:31 AM) 291 unit/L *HI* (12/15/13 8:54 AM) 265 unit/L *HI* (12/13/13 5:18 AM) Alk Phos [39-136 unit/L] <0.1 mg/dL *LOW* (12/16/13 8:31 AM) 0.2 mg/dL (12/15/13 8:54 AM) 0.2 mg/dL (12/13/13 5:18 AM) Bili Total [0.2-1.3 mg/dL] 1Result Comment: The eGFR is calculated using [...] values reflect the clinical guidelines of the [place] [employer]. 5Interpretive Data: Adult reference range values reflect the clinical guidelines of the [place] [employer]. 6Interpretive Data: Adult reference range values reflect the clinical guidelines of the [place] [employer]. ANEMIA STUDY 1 2 3 Most recent to oldest [Reference Range]: 114 ug/dl (12/13/13 5:10 AM) Iron [30-160 ug/dl] 25 ng/mL (12/13/13 5:10 AM) 31 ng/mL (12/12/13 3:35 AM) Ferritin Lvl [5-204 ng/mL] 30 % (12/13/13 5:10 AM) % Satur Fe [12-57 %] 260 ug/dl (12/13/13 5:10 AM) UIBC [110-370 ug/dl] 295 pg/mL (12/13/13 5:10 AM) Vitamin B12 Lvl [254-1320 pg/mL] 10.8 ng/mL (12/13/13 5:10 AM) Folate Lvl [>=3.0 ng/mL] 374 ug/dl (12/13/13 5:10 AM) TIBC [228-428 ug/dl] ENDOCRINOLOGY 1 2 3 Most recent to oldest [Reference Range]: 4 mIU/mL 7 *NA* (12/16/13 8:31 AM) hCG Tot 7Interpretive Data: Reference Range: Male 0 - 5 mIU/mL Non- Female 0 - 5 mIU/mL Note: hCG result should be used in conjunction with symptoms, results of other tests, and clinical impressions. Weeks of Gestation hCG (mIU/mL) 3 6 - 71 4 10-750 5 217 - 7,138 6 158 -31,795 7 3,697 - 163,563 8 32,065 - 149,571 9 63,803 - 151,410 10 46,506 - 186,977 11 27,832 - 210,612 14 13,950 - 62,530 15 12,039 - 70,971 16 9,040 - 56,451 17 8,175 - 55,868 18 8,099 - 58,176 URINE AND STOOL 1 2 3 Most recent to oldest [Reference Range]: Clear (12/10/13 5:30 PM) UA Turbidity [Clear] Ltyellow *NA* (12/10/13 5:30 PM) UA Color 7.0 (12/10/13 5:30 PM) UA pH [5.0-8.0] 1.004 (12/10/13 5:30 PM) UA Spec Grav [<=1.030] Negative mg/dL *NA* (12/10/13 5:30 PM) UA Glucose [Negative mg/dL] Negative (12/10/13 5:30 PM) UA Blood [Negative] Negative mg/dL *NA* (12/10/13 5:30 PM) UA Ketones [Negative mg/dL] Negative mg/dL (12/10/13 5:30 PM) UA Protein [Negative mg/dL] <=1.0 mg/dL *NA* (12/10/13 5:30 PM) UA Urobilinogen [0.1-1.0 mg/dL] Negative *NA* (12/10/13 5:30 PM) UA Bili [Negative] Trace *ABN* (12/10/13 5:30 PM) UA Leuk Est [Negative] Negative (12/10/13 5:30 PM) UA Nitrite [Negative] 3 /HPF (12/10/13 5:30 PM) UA WBC [0-5 /HPF] Occasional /LPF *NA* (12/10/13 5:30 PM) UA Sq Epi [Few /LPF] HEMATOLOGY 1 2 3 Most recent to oldest [Reference Range]: 4.2 K/CMM (12/16/13 8:31 AM) 3.2 K/CMM *LOW* (12/15/13 8:54 AM) 5.0 K/CMM (12/14/13 5:17 AM) WBC [3.7-10.4 K/CMM] 3.43 M/CMM *LOW* (12/16/13 8:31 AM) 3.56 M/CMM *LOW* (12/15/13 8:54 AM) 3.70 M/CMM *LOW* (12/14/13 5:17 AM) RBC [4.20-5.40 M/CMM] 11.1 g/dL *LOW* (12/16/13 8:31 AM) 11.7 g/dL *LOW* (12/15/13 8:54 AM) 11.9 g/dL *LOW* (12/14/13 5:17 AM) Hgb [12.0-16.0 g/dL] 33.6 % *LOW* (12/16/13 8:31 AM) 35.0 % *LOW* (12/15/13 8:54 AM) 36.4 % (12/14/13 5:17 AM) Hct [36.0-48.0 %] 98.1 fL (12/16/13 8:31 AM) 98.1 fL (12/15/13 8:54 AM) 98.3 fL (12/14/13 5:17 AM) MCV [81.0-99.0 fL] 32.5 pg *HI* (12/16/13 8:31 AM) 32.7 pg *HI* (12/15/13 8:54 AM) 32.0 pg *HI* (12/14/13 5:17 AM) MCH [27.0-31.0 pg] 33.1 g/dL (12/16/13 8:31 AM) 33.3 g/dL (12/15/13 8:54 AM) 32.6 g/dL (12/14/13 5:17 AM) MCHC [32.0-36.0 g/dL] 14.3 % (12/16/13 8:31 AM) 13.9 % (12/15/13 8:54 AM) 14.1 % (12/14/13 5:17 AM) RDW [11.5-14.5 %] 233 K/CMM (12/16/13 8:31 AM) 208 K/CMM (12/15/13 8:54 AM) 219 K/CMM (12/14/13 5:17 AM) Platelet [133-450 K/CMM] 10.1 fL (12/16/13 8:31 AM) 10.0 fL (12/15/13 8:54 AM) 10.5 fL *HI* (12/14/13 5:17 AM) MPV [7.4-10.4 fL] 33.9 % *LOW* (12/16/13 8:31 AM) 27.1 % *LOW* (12/15/13 8:54 AM) 25.5 % *LOW* (12/14/13 5:17 AM) Segs [45.0-75.0 %] 50.0 % *HI* (12/16/13 8:31 AM) 56.8 % *HI* (12/15/13 8:54 AM) 63.1 % *HI* (12/14/13 5:17 AM) Lymphocytes [20.0-40.0 %] 8.6 % (12/16/13 8:31 AM) 8.3 % (12/15/13 8:54 AM) 4.1 % (12/14/13 5:17 AM) Monocytes [2.0-12.0 %] 6.6 % *HI* (12/16/13 8:31 AM) 6.9 % *HI* (12/15/13 8:54 AM) 6.5 % *HI* (12/14/13 5:17 AM) Eosinophils [0.0-4.0 %] 0.9 % (12/16/13 8:31 AM) 0.9 % (12/15/13 8:54 AM) 0.8 % (12/14/13 5:17 AM) Basophils [0.0-1.0 %] 1.4 K/CMM *LOW* (12/16/13 8:31 AM) 0.9 K/CMM *LOW* (12/15/13 8:54 AM) 1.3 K/CMM *LOW* (12/14/13 5:17 AM) Segs-Bands # [1.5-8.1 K/CMM] 2.1 K/CMM (12/16/13 8:31 AM) 1.8 K/CMM (12/15/13 8:54 AM) 3.2 K/CMM (12/14/13 5:17 AM) Lymphocytes # [1.0-5.5 K/CMM] 0.4 K/CMM (12/16/13 8:31 AM) 0.3 K/CMM (12/15/13 8:54 AM) 0.2 K/CMM (12/14/13 5:17 AM) Monocytes # [0.0-0.8 K/CMM] 0.3 K/CMM (12/16/13 8:31 AM) 0.2 K/CMM (12/15/13 8:54 AM) 0.3 K/CMM (12/14/13 5:17 AM) Eosinophils # [0.0-0.5 K/CMM] Normal (12/14/13 5:17 AM) RBC Morph Normal (12/14/13 5:17 AM) Plt Morph 12.6 seconds (12/12/13 3:35 AM) PT [12.0-14.7 seconds] 0.95 8 (12/12/13 3:35 AM) INR [0.85-1.17] 8Interpretive Data: RECOMMENDED RANGES FOR PROTIME INR: 2.0-3.0 for most medical and surgical thromboembolic states. 2.5-3.5 for artificial heart valves and recurrent embolism. INR SHOULD BE USED ONLY FOR PATIENTS ON STABLE ANTICOAGULANT THERAPY. Medications Administered During Your Visit No data [...] Plan Extracted from: Title: Clinical Document Author: Rafa Garcia MD Date: 12/16/13 GASTROENTEROLOGY FOLLOW-UP NOTE Ju Garcia M.D. [facility] SUBJECTIVE: No acute events reported overnight. Complains of bloating and diffuse abdominal discomfort. Has been having a BM everyday but it has been small, and she feels constipated. Mild nausea, no vomiting. States that her headaches are now improving, and she is not using much pain medicine today. OBJECTIVE: Vitals and Temp: VitalsTmp(F)[id number] 12/16 16:[id number]------ 12/16 12:[id number]/7318------ 12/16 08:[id number]/8320------ 12/16 04:[id number]/7117------ 12/15 20:[id number]------ 24 Hr Tmax: 98.3F (36.83c) at 12/16 12:00Vital Signs are the last 5 in the past 48 hours. Input/Output RecordInOutBal 4hr Tot 104 0 104 0324hr Tot 1395 0 1395 Physical Exam: Gen: lying in bed, no acute distress HEENT: anicteric, atraumatic CVS: regular rate & rythm, S1+S2 Resp: clear to auscultation bilaterally, no wheezing Abd: mild tenderness in RUQ & RLQ, non-distended, soft Ext: pulses +, no edema Neuro: A&O x 3 Psych: anxious Labs (Last four charted values) WBC 4.2(DEC 16)L 3.2(DEC 15)5.0(DEC 14)4.5(DEC 13) Hgb L 11.1(DEC 16)L 11.7(DEC 15)L 11.9(DEC 14)L 10.0(DEC 13) Hct L 33.6(DEC 16)L 35.0(DEC 15)36.4(DEC 14)L 30.4(DEC 13) Plt 233(DEC 16)208(DEC 15)219(DEC 14)191(DEC 13) Na 139(DEC 16)140(DEC 15)141(DEC 13)139(DEC 12) K H 5.9(DEC 16)H 5.2(DEC 15)4.6(DEC 13)4.0(DEC 12) CO2 30(DEC 16)30(DEC 15)27(DEC 13)24(DEC 12) Cl 107(DEC 16)104(DEC 15)107(DEC 13)108(DEC 12) Cr 0.8(DEC 16)0.8(DEC 15)0.7(DEC 13)0.8(DEC 12) BUN 11(DEC 16)13(DEC 15)11(DEC 13)13(DEC 12) Glucose Random 93(DEC 16)77(DEC 15)82(DEC 13)H 207(DEC 12) Mg 1.9(DEC 10) Ca 9.5(DEC 16)9.2(DEC 15)L 8.2(DEC 13)9.0(DEC 12) PT 12.6(DEC 12) INR 0.95(DEC 12) Medications: Scheduled Meds (7):citalopram (CeleXA), diazepam, gabapentin, multivitamin with minerals (Multiple Vitamins with Minerals oral tablet), pantoprazole (Protonix), polyethylene glycol 3350 (MiraLax), zolpidem (Ambien) Unscheduled Meds: None PRN Meds (8):Dextrose 50% in Water IV (Dextrose 50% Syringe), acetaminophen, chlordiazePOXIDE (chlordiazePOXIDE 25 mg oral capsule), docusate, hydromorphone (Dilaudid), hyoscyamine, promethazine + Sodium Chloride 0.9% IV 50 mL, sodium chloride (Saline Flush 0.9%) One Time Meds: None Continuous Infusions: None ASSESSMENT & PLAN: 1. Nausea and vomiting: improved. 2. Acute migraine headache: improved. 3. Elevated liver function tests: decreasing. 4. Normocytic anemia of unknown etiology. 5. History of gastric bypass surgery. 6. Generalized abdominal pain. 7. Depression. 8. Constipation Current symptoms of nausea are likely related to her migraine. Neurology on board. PIPER improving now. Complaining of bloating, abd distention and discomfort. Likely a side effect of heavy narcotic use. Encouraged patient to limit Dilaudid usage, and increase mobility. Abdominal U/S did not show any acute abnormality. No acute abdominal signs on exam. Will check KUB. Will start BID Miralax, and order an enema for urgent relief. Continue supportive care. Advance diet as tolerated. H/H is now stable. No overt GI bleeding reported. S/p EGD & Colonoscopy earlier this year. Iron levels and folate are OK. 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 B12 supplementation per primary team. Elevated LFTs: elevated but stable. Has had detailed work-up within the last 6 months. Will need outpatient follow-up and possibly a Hepatology evaluation in the [facility]. We will follow the patient with you. Please call us with any questions. Ju Garcia M.D. [facility] [place]
--- OUTSIDE RECORDS SUMMARY | 2018-09-18 17:15 | XMS REPORT | Summary of Care ---
Author Author [facility] Organization [facility] Address Unknown Phone Unavailable Encounter YOGI Andrea(MECHELLE) [id number] Date(s): 04/11/16 - 04/12/16 [facility] [address] [place] [address]- Discharge Disposition: Home or Self Care Attending Physician: Nathalia Verdin MD Admitting Physician: Nathalia Verdin MD Vital Signs 1 2 3 Most recent to oldest [Reference Range]: 167.64 cm (04/12/16 1:10 PM) 167.64 cm (04/11/16 6:20 PM) Height 98.0 DegF (04/12/16 4:23 PM) 98.0 DegF (04/12/16 12:23 PM) 98.4 DegF (04/11/16 9:21 PM) Temperature Oral [96.4-99.1 DegF] 117/73 mmHg (04/12/16 4:23 PM) 148/106 mmHg *HI* (04/12/16 1:09 PM) 106/57 mmHg (04/12/16 12:23 PM) Blood Pressure [90-140/60-90 mmHg] 15 BRMIN (04/12/16 4:23 PM) 17 BRMIN (04/12/16 1:09 PM) 18 BRMIN (04/12/16 12:23 PM) Respiratory Rate [14-20 BRMIN] 70 bpm (04/12/16 4:23 PM) 68 bpm (04/12/16 12:23 PM) 72 bpm (04/12/16 6:29 AM) Peripheral Pulse Rate [60-100 bpm] 64.091 kg (04/12/16 1:10 PM) 64.091 kg (04/11/16 6:20 PM) Weight 22.81 m2 (04/12/16 1:10 PM) 22.81 m2 (04/11/16 6:20 PM) Body Mass Index Problem List Condition [...] Reaction Severity Status aspirin Resolved Augmentin Active Paper Tape Active shellfish Active Medications acetaminophen 650 mg, 2 tab, Route: PO, Drug form: TAB, Q4H, Dosing Weight 64.091, kg, PRN An n 1-3/Temp > 100.4 F, Start date: 04/12/16 5:12:00 [employer], Duration: 30 day, Stop date: 05/12/16 5:11:00 [employer]ANT Notes: Do not exceed 4 gm/day. (Same as: Tylenol) Start Date: 04/12/16 Stop Date: 04/12/16 Status: Discontinued Belbuca 150 mcg buccal film 150 microgram=1 ea, BUC, TID, PRN Pain Score 1-3, 0 Refill(s) Start Date: 04/12/16 Status: Ordered chlordiazePOXIDE-clidinium 5 mg-2.5 mg oral capsule (Librax) 2 cap, PO, TID-Before Meals, 0 Refill(s) Start Date: 04/12/16 Status: Ordered citalopram 40 mg oral tablet 40 mg=1 tab, PO, Daily, # 30 tab, 0 Refill(s) Start Date: 04/12/16 Status: Ordered cyanocobalamin 1,000 microgram, IM, q 2 weeks, 0 Refill(s) Start Date: 04/12/16 Status: Ordered D5W 1/2NS 1,000 mL 1,000 mL, Rate: 125 ml/hr, Infuse over: 8 hr, Route: IV, Dosing Weight 64.091 kg , Total Volume: 1,000, Start date: 04/12/16 5:12:00 [employer]ES CONSULTANT, Duration: 30 day, Stop date: 05/12/16 5:11:00 [employer]ANT Start Date: 04/12/16 Stop Date: 04/12/16 Status: Discontinued D5W 1/2NS 1,000 mL 1,000 mL, Rate: 75 ml/hr, Infuse over: 13.3 hr, Route: IV, Dosing Weight 64.091 kg, Total Volume: 1,000, Start date: 04/12/16 5:01:00 SR [employer]ES CONSULTANT, Duration: 30 day, Sto p date: 05/12/16 5:00:00 [employer]ANT Start Date: 04/12/16 Stop Date: 04/12/16 Status: Discontinued diazepam 10 mg oral tablet 10 mg=1 tab, PO, TID, 0 Refill(s) Start Date: 04/12/16 Status: Ordered dicyclomine 10 mg oral capsule 20 mg=2 cap, PO, TID, PRN Spasm, 0 Refill(s) Start Date: 04/12/16 Status: Ordered Dilaudid 0.5 mg, 0.5 mL, Route: IV, 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, Q4H, Dosing Weight 64.091, kg, PRN Pa in Score 6-10, Priority: Routine, Start date: 04/12/16 5:12:00 [employer]SULTANT, Duration: 30 day, Stop date: 05/12/16 5:11:00 [employer]ES [employer]SULTANT Start Date: 04/12/16 Stop Date: 04/12/16 Status: Discontinued Dilaudid 0.5 mg, 0.5 mL, Route: IVP, 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, ONCE, Dosing Weight 64.091, kg, Prio rity: STAT, Start date: 04/12/16 0:24:00 SR [employer] SALES CONSULTANT, Stop date: 04/12/16 0:24:00 SR [employer] SALES CONSULTANT Start Date: 04/12/16 Stop Date: 04/12/16 Status: Completed Dilaudid 0.5 mg, Route: IVP, ONCE, Dosing Weight 64.091, kg, Priority: STAT, Start date: 04/12/16 5:00:00 SR [employer] SALES CONSULTANT, Stop date: 04/12/16 5:00:00 SR [employer]ES [employer]SULTANT Start Date: 04/12/16 Stop Date: 04/12/16 Status: Completed fentaNYL 25 mcg/hr transdermal film, extended release 1 patch, TOP, Q72H, 0 Refill(s) Start Date: 04/12/16 Status: Ordered folic acid 2 mg, PO, Daily, 0 Refill(s) Start Date: 04/12/16 Status: Ordered gabapentin 100 mg oral capsule 100 mg=1 cap, PO, TID, # 90 cap, 1 Refill(s) Start Date: 04/12/16 Status: Ordered pantoprazole 40 mg oral enteric coated tablet 40 mg=1 tab, PO, BID, 0 Refill(s) Start Date: 04/12/16 Status: Ordered Pentasa 1,000 mg, 4 cap, Route: PO, Drug form: ERCAP, QID, Dosing Weight 64.091, kg, Sta rt date: 04/12/16 17:00:00 SR [employer]SULTANT, Duration: 30 day, Stop date: 05/12/16 13:00:[address] Start Date: 04/12/16 Stop Date: 04/12/16 Status: Discontinued Pentasa 500 mg oral capsule, extended release 1,000 mg=2 cap, PO, TID, # 120 cap, 0 Refill(s) Start Date: 04/12/16 Status: Ordered Phenergan + sodium chloride 0.9% INJ 50 mL 12.5 mg, 0.5 mL, Route: IVPB, ONCE, Dosing Weight 64.091, kg, Priority: STAT, St art date: 04/12/16 0:24:00 SR [employer] SALES CONSULTANT, Stop date: 04/12/16 0:24:00 SR [employer] SALES CONSULTANT Notes: Do not give IV push. (Same as: Phenergan) Start Date: 04/12/16 Stop Date: 04/12/16 Status: Completed predniSONE 10 mg oral tablet See Special Instructions, PO, Daily, 12 day regimen: 2 weeks - 30 mg (3 tabs) d aily 2 weeks - 20 mg (2 tabs) daily 2 weeks- 1.5tabs daily 2 weeks - 10 mg (1 tab) daily 2 weeks - 1/2 tab daily, # 24 tab, 0 Refill(s) Start Date: 04/12/16 Stop Date: 04/24/16 Status: Ordered promethazine 50 mg oral tablet 50 mg=1 tab, PO, Q6H, PRN Nausea & Vomiting, # 40 tab, 0 Refill(s) Start Date: 04/12/16 Stop Date: 04/22/16 Status: Ordered propranolol 80 mg oral capsule, extended release 80 mg=1 cap, PO, Daily, # 30 cap, 0 Refill(s) Start Date: 04/12/16 Stop Date: 05/12/16 Status: Ordered Protonix 40 mg, 1 tab, Route: PO, Drug form: ECTAB, Before Breakfast, Dosing Weight 64.09 1, kg, Start date: 04/13/16 7:30:00 SR [employer] SALES CONSULTANT, Duration: 30 day, Stop date: 05/12/16 7 :30:00 SR [employer] SALES CONSULTANT Notes: Tablet should not be chewed or crushed.(Same as: Protonix) Start Date: 04/13/16 Stop Date: 04/12/16 Status: Canceled Saline Flush 0.9% 10 mL, Route: IVP, Drug Form: INJ, Dosing Weight 64.091, kg, PRN, PRN Line Flush , Start date: 04/11/16 18:21:00 SR [employer] SALES CONSULTANT, Duration: 30 day, Stop date: 05/11/16 18:20 :00 SR [employer] SALES CONSULTANT Notes: (Same as: BD Posiflush) Start Date: 04/11/16 Stop Date: 04/12/16 Status: Discontinued Saline Flush 0.9% 10 ml, Route: IVP, Drug Form: INJ, Dosing Weight 64.091, kg, PRN, PRN Line Flush , Start date: 04/12/16 5:12:00 SR TECH[employer]ICAL SALES CONSULTANT, Duration: 30 day, Stop date: 05/12/16 5:11:0 0 SR TECH[employer]ICAL SALES CONSULTANT Notes: (Same as: BD Posiflush) Start Date: 04/12/16 Stop Date: 04/12/16 Status: Discontinued scopolamine 1.5 mg transdermal film 1.5 mg=1 patch, TOP, Q72H, PRN Other-See Comments, # 4 ea, 0 Refill(s) Start Date: 04/12/16 Stop Date: 04/24/16 Status: Ordered temazepam 30 mg oral capsule 30 mg=1 cap, PO, Bedtime, PRN Sleep, # 14 cap, 0 Refill(s) Start Date: 04/12/16 Stop Date: 04/26/16 Status: Ordered tizanidine 4 mg oral tablet 4 mg, PO, BID, 0 Refill(s) Start Date: 04/12/16 Status: Ordered zolpidem 12.5 mg oral tablet, extended release 12.5 mg=1 tab, PO, Bedtime, PRN for sleep, 0 Refill(s) Start Date: 04/12/16 Stop Date: 04/26/16 Status: Ordered Results ELECTROLYTES Most recent to 1 oldest [Reference Range]: Sodium Lvl [135-145 137 mEq/L mEq/L] (04/11/16 9:18 PM) Potassium Lvl 4.0 mEq/L [3.5-5.1 mEq/L] (04/11/16 9:18 PM) Chloride Lvl [95-109 101 mEq/L mEq/L] (04/11/16 9:18 PM) CO2 [24-32 mEq/L] 27 mEq/L (04/11/16 9:18 PM) AGAP [10.0-20.0 13.0 mEq/L mEq/L] (04/11/16 9:18 PM) CHEM PANEL Most recent to 1 oldest [Reference Range]: Creatinine Lvl 0.82 mg/dL [0.50-1.40 mg/dL] (04/11/16 9:18 PM) eGFR 90 mL/min/1.73m2 1 *NA* (04/11/16 9:18 PM) BUN [7-22 mg/dL] 17 mg/dL (04/11/16 9:18 PM) B/C Ratio [6-25] 21 (04/11/16 9:18 PM) Glucose Lvl [70-99 96 mg/dL mg/dL] (04/11/16 9:18 PM) Total Protein 6.7 g/dL [6.4-8.4 g/dL] (04/11/16 9:18 PM) Albumin Lvl [3.5-5.0 3.6 g/dL g/dL] (04/11/16 9:18 PM) Globulin [2.7-4.2 3.1 g/dL g/dL] (04/11/16 9:18 PM) A/G Ratio [0.7-1.6] 1.2 (04/11/16 9:18 PM) Calcium Lvl 8.8 mg/dL [8.5-10.5 mg/dL] (04/11/16 9:18 PM) ALT [0-65 unit/L] 28 unit/L (04/11/16 9:18 PM) AST [0-37 unit/L] 9 unit/L (04/11/16 9:18 PM) Alk Phos [39-136 60 unit/L unit/L] (04/11/16 9:18 PM) Bili Total [0.2-1.3 0.2 mg/dL mg/dL] (04/11/16 9:18 PM) 1Result Comment: The eGFR is calculated [...] [Reference Range]: S Preg [Negative] Negative *NA* (04/11/16 9:18 PM) URINE AND STOOL Most recent to 1 oldest [Reference Range]: UA Turbidity [Clear] Clear (04/11/16 9:04 PM) UA Color Ltyellow *NA* (04/11/16 9:04 PM) UA pH [5.0-8.0] 7.0 (04/11/16 9:04 PM) UA Spec Grav 1.012 [<=1.030] (04/11/16 9:04 PM) UA Glucose [Negative Negative mg/dL mg/dL] *NA* (04/11/16 9:04 PM) UA Blood [Negative] Negative (04/11/16 9:04 PM) UA Ketones [Negative Negative mg/dL mg/dL] *NA* (04/11/16 9:04 PM) UA Protein [Negative Negative mg/dL mg/dL] (04/11/16 9:04 PM) UA Urobilinogen <=1.0 mg/dL [0.1-1.0 mg/dL] *NA* (04/11/16 9:04 PM) UA Bili [Negative] Negative *NA* (04/11/16 9:04 PM) UA Leuk Est Small [Negative] *ABN* (04/11/16 9:04 PM) UA Nitrite Negative [Negative] (04/11/16 9:04 PM) UA WBC [0-5 /HPF] 8 /HPF *HI* (04/11/16 9:04 PM) UA RBC [0-2 /HPF] 2 /HPF (04/11/16 9:04 PM) UA Sq Epi [Few /LPF] Occasional /LPF *NA* (04/11/16 9:04 PM) UA Amorph Adrianne [None Few /HPF Seen /HPF] *NA* (04/11/16 9:04 PM) UA Renal Epi [<=0 60 /LPF /LPF] *HI* (04/11/16 9:04 PM) UA Bartlett Yeast [None Occasional /HPF Seen /HPF] *ABN* (04/11/16 9:04 PM) UA Trans Epi [<=0 9 /LPF /LPF] *HI* (04/11/16 9:04 PM) HEMATOLOGY Most recent to 1 oldest [Reference Range]: WBC [3.7-10.4 K/CMM] 7.1 K/CMM (04/11/16 9:18 PM) RBC [4.20-5.40 3.43 M/CMM M/CMM] *LOW* (04/11/16 9:18 PM) Hgb [12.0-16.0 g/dL] 10.1 g/dL *LOW* (04/11/16 9:18 PM) Hct [36.0-48.0 %] 30.8 % *LOW* (04/11/16 9:18 PM) MCV [80.0-98.0 fL] 89.9 fL (04/11/16 9:18 PM) MCH [27.0-31.0 pg] 29.6 pg (04/11/16 9:18 PM) MCHC [32.0-36.0 32.9 g/dL g/dL] (04/11/16 9:18 PM) RDW [11.5-14.5 %] 15.4 % *HI* (04/11/16 9:18 PM) Platelet [133-450 381 K/CMM K/CMM] (04/11/16 9:18 PM) MPV [7.4-10.4 fL] 8.7 fL (04/11/16 9:18 PM) Segs [45.0-75.0 %] 61.0 % (04/11/16 9:18 PM) Lymphocytes 29.9 % [20.0-40.0 %] (04/11/16 9:18 PM) Monocytes [2.0-12.0 7.4 % %] (04/11/16 9:18 PM) Eosinophils [0.0-4.0 0.6 % %] (04/11/16 9:18 PM) Basophils [0.0-1.0 1.1 % %] *HI* (04/11/16 9:18 PM) Segs-Bands # 4.3 K/CMM [1.5-8.1 K/CMM] (04/11/16 9:18 PM) Lymphocytes # 2.1 K/CMM [1.0-5.5 K/CMM] (04/11/16 9:18 PM) Monocytes # [0.0-0.8 0.5 K/CMM K/CMM] (04/11/16 9:18 PM) Basophils # [0.0-0.2 0.1 K/CMM K/CMM] (04/11/16 9:18 PM) PT [12.0-14.7 12.7 seconds seconds] (04/11/16 9:18 PM) INR [0.85-1.17] 0.93 (04/11/16 9:18 PM) PTT [22.9-35.8 23.9 seconds seconds] (04/11/16 9:18 PM) Immunizations Given and Recorded Vaccine Date [...] Plan Extracted from: Title: Clinical Document Author: Nathalia Verdin MD Date: 04/12/16 Daily Progress Note SUBJECTIVE ABD PAIN / NAUSEA/ VOMITTING NO FEVER NO BLOOD IN STOOL OBJECTIVE VitalsTmp(F)[id number] 04/12 13:09----[id number]------ 04/12 12:[id number]--- 04/12 09:05-------104/72--99--- 04/12 08:39-------95/66--100--- 04/12 06:29----[id number]--- 24 Hr Tmax: 98.4F (36.89c) at 04/11 21:21Vital Signs are the last 5 in the past 48 hours. PHYSICAL EXAM GENERAL ALERT ,NOT IN ACUTE DISTTRESS HEENT PERRL , EOMI NO PALLOR NO ICTERUS NECK NO JVD , NO BRUIT HEART S1 S2 REGULAR , NO MURMUR CHEST CTA ABDOMEN SOFT , NO PALPABLE MASS , BS ACTIVE EXTREMITIES NO EDEMA /CYANOSIS NEUROLOGICAL : NONFOCAL Labs (Last four charted values) WBC 7.1(APR 11) Hgb L 10.1(APR 11) Hct L 30.8(APR 11) Plt 381(APR 11) Na 137(APR 11) K 4.0(APR 11) CO2 27(APR 11) Cl 101(APR 11) Cr 0.82(APR 11) BUN 17(APR 11) Glucose Random 96(APR 11) Ca 8.8(APR 11) PT 12.7(APR 11) INR 0.93(APR 11) PTT 23.9(APR 11) IMAGING MEDICATIONS Scheduled Meds: None PRN Meds (4): 04/12/16 acetaminophen 650 mg PO Q4H 04/12/16 hydromorphone (Dilaudid) 0.5 mg IV Q4H 04/11/16 sodium chloride (Saline Flush 0.9%) 10 mL IVP PRN 04/12/16 sodium chloride (Saline Flush 0.9%) 10 ml IVP PRN ASSESSMENT AND PLAN DEHYDRATION ABDPAIN/ N/V - RECURRENT CROHN'S DISEASE BY HISTORY ANEMIA H/O GASTRIC BYPASS LUMBAR SPONDYLOSIS ANXIETY DEPRESSION HYDRATION CONTINUE HOME MEDS FOLLOW GI RECOMMENDATIONS
--- OUTSIDE RECORDS SUMMARY | 2018-09-18 17:15 | XMS REPORT | Summary of Care ---
Author Author [facility] Organization [facility] Address Unknown Phone Unavailable Encounter YOGI Andrea(MECHELLE) [id number] Date(s): 03/02/16 - 03/02/16 [facility] [address] [place] [address]- Discharge Diagnosis: Abdominal pain Discharge Diagnosis: Acute pyelonephritis Discharge Disposition: Home or Self Care Attending Physician: Sergo Stallworth MD Vital Signs 1 2 3 Most recent to oldest [Reference Range]: 167.64 cm (03/02/16 7:23 PM) Height 98.2 DegF (03/02/16 11:00 PM) 98.0 DegF (03/02/16 8:26 PM) 98.0 DegF (03/02/16 7:23 PM) Temperature Oral [96.4-99.1 DegF] 130/86 mmHg (03/02/16 11:00 PM) 132/86 mmHg (03/02/16 8:26 PM) 112/78 mmHg (03/02/16 7:23 PM) Blood Pressure [90-140/60-90 mmHg] 18 BRMIN (03/02/16 11:00 PM) 18 BRMIN (03/02/16 8:26 PM) 18 BRMIN (03/02/16 7:23 PM) Respiratory Rate [14-20 BRMIN] 88 bpm (03/02/16 11:00 PM) 88 bpm (03/02/16 8:26 PM) 82 bpm (03/02/16 7:23 PM) Peripheral Pulse Rate [60-100 bpm] 61.818 kg (03/02/16 7:23 PM) Weight 22 m2 (03/02/16 7:23 PM) Body Mass Index Problem List Condition [...] Active Paper Tape Active shellfish Active Medications cefTRIAXone + sodium chloride 0.9% INJ 100 mL 1 gm, Route: IVPB, ONCE, Dosing Weight 61.818, kg, Priority: STAT, Start date: 22:08:00 CDT, Stop date: 03/02/16 22:08:00 CDT Notes: (Same As: Rocephin).Use with 100 mL NS and infuse over 30 min MEDICA TION WASTE Product Size: 1000 mgProduct Wasted: ___ mg Start Date: 03/02/16 Stop Date: 03/02/16 Status: Completed Keflex 500 mg oral capsule 500 mg=1 cap, PO, QID, X 7 day, # 28 cap, 0 Refill(s) Start Date: 03/02/16 Stop Date: 03/09/16 Status: Ordered morphine Sulfate 4 mg, Route: IVP, ONCE, Dosing Weight 61.818, kg, Priority: STAT, Start date: 20:54:00 CDT, Stop date: 03/02/16 20:54:00 CDT Start Date: 03/02/16 Stop Date: 03/02/16 Status: Completed morphine Sulfate 4 mg, Route: IVP, ONCE, Dosing Weight 61.818, kg, Priority: STAT, Start date: 22:39:00 CDT, Stop date: 03/02/16 22:39:00 CDT Start Date: 03/02/16 Stop Date: 03/02/16 Status: Completed ondansetron 4 mg, Route: IVP, 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, ONCE, Dosing Weight 61.818, kg, Priority: STAT , Start date: 03/02/16 20:54:00 CDT, Stop date: 03/02/16 20:54:00 CDT Start Date: 03/02/16 Stop Date: 03/02/16 Status: Completed promethazine 12.5 mg, Route: IVPB, ONCE, Dosing Weight 61.818, kg, Priority: STAT, Start date : 03/02/16 22:01:00 CDT, Stop date: 03/02/16 22:01:00 CDT Start Date: 03/02/16 Stop Date: 03/02/16 Status: Completed Saline Flush 0.9% 10 mL, Route: IVP, Drug Form: INJ, Dosing Weight 64.545, kg, PRN, PRN Line Flush , Start date: 03/02/16 19:27:00 CDT, Duration: 30 day, Stop date: 04/01/16 18:26 :00 [employer] Notes: (Same as: BD Posiflush) Start Date: 03/02/16 Stop Date: 03/03/16 Status: Discontinued Tylenol with Codeine #3 oral tablet 1 tab, PO, Q6H, PRN Pain, X 5 day, # 20 tab, 0 Refill(s) Start Date: 03/02/16 Stop Date: 03/07/16 Status: Ordered Results ELECTROLYTES Most recent to 1 oldest [Reference Range]: Sodium Lvl [135-145 140 mEq/L mEq/L] (03/02/16 7:34 PM) Potassium Lvl 4.0 mEq/L [3.5-5.1 mEq/L] (03/02/16 7:34 PM) Chloride Lvl [95-109 108 mEq/L mEq/L] (03/02/16 7:34 PM) CO2 [24-32 mEq/L] 23 mEq/L *LOW* (03/02/16 7:34 PM) AGAP [10.0-20.0 13.0 mEq/L mEq/L] (03/02/16 7:34 PM) CHEM PANEL Most recent to 1 oldest [Reference Range]: Creatinine Lvl 0.61 mg/dL [0.50-1.40 mg/dL] (03/02/16 7:34 PM) eGFR 114 mL/min/1.73m2 1 *NA* (03/02/16 7:34 PM) BUN [7-22 mg/dL] 17 mg/dL (03/02/16 7:34 PM) B/C Ratio [6-25] 28 *HI* (03/02/16 7:34 PM) Glucose Lvl [70-99 84 mg/dL mg/dL] (03/02/16 7:34 PM) Total Protein 7.1 g/dL [6.4-8.4 g/dL] (03/02/16 7:34 PM) Albumin Lvl [3.5-5.0 3.7 g/dL g/dL] (03/02/16 7:34 PM) Globulin [2.7-4.2 3.4 g/dL g/dL] (03/02/16 7:34 PM) A/G Ratio [0.7-1.6] 1.1 (03/02/16 7:34 PM) Calcium Lvl 8.8 mg/dL [8.5-10.5 mg/dL] (03/02/16 7:34 PM) ALT [0-65 unit/L] 35 unit/L (03/02/16 7:34 PM) AST [0-37 unit/L] 13 unit/L (03/02/16 7:34 PM) Alk Phos [39-136 99 unit/L unit/L] (03/02/16 7:34 PM) Bili Total [0.2-1.3 <0.1 mg/dL mg/dL] *LOW* (03/02/16 7:34 PM) Bili Direct [0.0-0.3 0.1 mg/dL mg/dL] (03/02/16 7:34 PM) Amylase Lvl [25-115 46 unit/L unit/L] (03/02/16 7:34 PM) Lipase Lvl [73-393 216 unit/L unit/L] (03/02/16 7:34 PM) 1Result Comment: The eGFR is calculated [...] be mul tiplied by the estimated BMI. URINE AND STOOL Most recent to 1 oldest [Reference Range]: UA Turbidity [Clear] Slight *ABN* (03/02/16 8:29 PM) UA Color Ltyellow *NA* (03/02/16 8:29 PM) UA pH [5.0-8.0] 5.0 (03/02/16 8:29 PM) UA Spec Grav 1.011 [<=1.030] (03/02/16 8:29 PM) UA Glucose [Negative Negative mg/dL mg/dL] *NA* (03/02/16 8:29 PM) UA Blood [Negative] Negative (03/02/16 8:29 PM) UA Ketones [Negative Negative mg/dL mg/dL] *NA* (03/02/16 8:29 PM) UA Protein [Negative Negative mg/dL mg/dL] (03/02/16 8:29 PM) UA Urobilinogen <=1.0 mg/dL [0.1-1.0 mg/dL] *NA* (03/02/16 8:29 PM) UA Bili [Negative] Negative *NA* (03/02/16 8:29 PM) UA Leuk Est Large [Negative] *ABN* (03/02/16 8:29 PM) UA Nitrite Negative [Negative] (03/02/16 8:29 PM) UA WBC [0-5 /HPF] 167 /HPF *HI* (03/02/16 8:29 PM) UA RBC [0-2 /HPF] 4 /HPF *HI* (03/02/16 8:29 PM) UA Bacteria [None Occasional /HPF Seen /HPF] *NA* (03/02/16 8:29 PM) UA Sq Epi [Few /LPF] Few /LPF *NA* (03/02/16 8:29 PM) UA Renal Epi [<=0 17 /LPF /LPF] *HI* (03/02/16 8:29 PM) HEMATOLOGY Most recent to 1 oldest [Reference Range]: WBC [3.7-10.4 K/CMM] 6.1 K/CMM (03/02/16 7:34 PM) RBC [4.20-5.40 3.68 M/CMM M/CMM] *LOW* (03/02/16 7:34 PM) Hgb [12.0-16.0 g/dL] 11.2 g/dL *LOW* (03/02/16 7:34 PM) Hct [36.0-48.0 %] 33.8 % *LOW* (03/02/16 7:34 PM) MCV [80.0-98.0 fL] 91.6 fL (03/02/16 7:34 PM) MCH [27.0-31.0 pg] 30.5 pg (03/02/16 7:34 PM) MCHC [32.0-36.0 33.3 g/dL g/dL] (03/02/16 7:34 PM) RDW [11.5-14.5 %] 15.1 % *HI* (03/02/16 7:34 PM) Platelet [133-450 386 K/CMM K/CMM] (03/02/16 7:34 PM) MPV [7.4-10.4 fL] 9.3 fL (03/02/16 7:34 PM) Segs [45.0-75.0 %] 43.4 % *LOW* (03/02/16 7:34 PM) Lymphocytes 43.9 % [20.0-40.0 %] *HI* (03/02/16 7:34 PM) Monocytes [2.0-12.0 8.3 % %] (03/02/16 7:34 PM) Eosinophils [0.0-4.0 3.5 % %] (03/02/16 7:34 PM) Basophils [0.0-1.0 0.9 % %] (03/02/16 7:34 PM) Segs-Bands # 2.6 K/CMM [1.5-8.1 K/CMM] (03/02/16 7:34 PM) Lymphocytes # 2.7 K/CMM [1.0-5.5 K/CMM] (03/02/16 7:34 PM) Monocytes # [0.0-0.8 0.5 K/CMM K/CMM] (03/02/16 7:34 PM) Eosinophils # 0.2 K/CMM [0.0-0.5 K/CMM] (03/02/16 7:34 PM) Basophils # [0.0-0.2 0.1 K/CMM K/CMM] (03/02/16 7:34 PM) Immunizations Given and Recorded Vaccine Date [...]
--- OUTSIDE RECORDS SUMMARY | 2018-09-18 17:15 | XMS REPORT | Summary of Care ---
Author Organization Unknown Address Unknown Phone Unavailable Encounter YOGI Andrea(MECHELLE) [id number] Date(s): 12/06/13 - 12/07/13 [facility] [address] [address] [place], [place] [id number] [place] [address] Discharge Diagnosis: Headache Discharge Disposition: Home Physician Attending: Antonio Riojas MD Reason for Visit SENT Vital Signs Most recent to 1 oldest [Reference Range]: Height 170.18 cm (12/06/13 8:22 PM) Temperature Oral 98.4 DegF [96.4-99.1 DegF] (12/06/13 8:22 PM) Systolic Blood 116 mmHg Pressure [90-140 (12/06/13 8:22 PM) mmHg] Diastolic Blood 74 mmHg Pressure [60-90 (12/06/13 8:22 PM) mmHg] Respiratory Rate 18 BRMIN [14-20 BRMIN] (12/06/13 8:22 PM) Peripheral Pulse 71 bpm Rate [60-100 bpm] (12/06/13 8:22 PM) Weight 64.545 kg (12/06/13 8:22 PM) Body Mass Index 22.29 m2 (12/06/13 8:22 PM) Problem List Condition Effective Dates Status [...] Active Paper Tape Active shellfish Active Medications diphenhydrAMINE 12.5 mg, 0.25 mL, Route: IVP, 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, ONCE, Dosing Weight 64.545, kg, Pr iority: STAT, Start date: 12/06/13 23:44:00, Stop date: 12/06/13 23:44:00 Notes: (Same as: Benadryl) Start Date: 12/06/13 Stop Date: 12/07/13 Status: Completed Haldol 5 mg, 1 mL, Route: IV, 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, ONCE, Dosing Weight 64.545, kg, Priority: STAT, Start date: 12/07/13 0:47:00, Stop date: 12/07/13 0:47:00 Notes: (Same as: Haldol) Start Date: 12/07/13 Stop Date: 12/07/13 Status: Completed ketorolac 30 mg, 1 mL, Route: IVP, 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, ONCE, Dosing Weight 64.545, kg, Priorit y: STAT, Start date: 12/06/13 23:43:00, Stop date: 12/06/13 23:43:00 Notes: (Same as:Toradol) IV bolus must be given >15 seconds. Give IM administration slowly and deeply into the muscle. Not for use > 4 days Start Date: 12/06/13 Stop Date: 12/07/13 Status: Completed LORazepam 1 mg, 0.5 mL, Route: IVP, 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, ONCE, Dosing Weight 64.545, kg, Priori ty: STAT, Start date: 12/07/13 0:46:00, Stop date: 12/07/13 0:46:00 Notes: (Same as: Ativan) Start Date: 12/07/13 Stop Date: 12/07/13 Status: Completed metoclopramide 10 mg, 2 mL, Route: IVP, 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, ONCE, Dosing Weight 64.545, kg, Priorit y: STAT, Start date: 12/06/13 23:44:00, Stop date: 12/06/13 23:44:00 Notes: (Same as: Reglan) Start Date: 12/06/13 Stop Date: 12/07/13 Status: Completed Sodium Chloride 0.9% (Bolus) IV 1,000 mL, 1,000 ml/hr, Infuse Over: 1 hr, Route: IV, 1,000, 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, ONCE , Priority: STAT, Dosing Weight 64.545 kg, Start date: 12/06/13 23:43:00, Durati on: 1 doses or times, Stop date: 12/06/13 23:43:00 Start Date: 12/06/13 Stop Date: 12/07/13 Status: Completed valproate sodium 100 mg/mL injectable solution + Sodium Chloride 0.9% IV 50 mL 500 mg, 5 mL, Route: IV, 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, ONCE, Dosing Weight 64.545, kg, give SI [employer] over 2 minutes, Priority: STAT, Start date: 12/06/13 23:44:00, Stop date: 23:44:00 Notes: Dilute in at least 50ml D5W or NS. Infusion rate=20 mg/min(Same As: Depac on) Start Date: 12/06/13 Stop Date: 12/07/13 Status: Completed Medications Administered During Your Visit [...]
--- OUTSIDE RECORDS SUMMARY | 2018-09-18 17:16 | XMS REPORT | Summary of Care ---
Author Author [facility] Organization [facility] Address Unknown Phone Unavailable Encounter YOGI Andrea(MECHELLE) [id number] Date(s): 04/29/16 - 05/10/16 [facility] [address] [place] [address]- [phone] Discharge Disposition: Home or Self Care Attending Physician: Juan Pablo Garza MD Admitting Physician: Juan Pablo Garza MD Vital Signs 1 2 3 Most recent to oldest [Reference Range]: 167.64 cm (05/05/16 3:42 PM) 167.64 cm (04/30/16 6:50 AM) 167.64 cm (04/29/16 3:31 PM) Height 98.5 DegF (05/10/16 12:00 PM) 98.3 DegF (05/10/16 8:00 AM) 98.4 DegF (05/10/16 4:00 AM) Temperature Oral [96.4-99.1 DegF] 119/71 mmHg (05/10/16 12:00 PM) 104/66 mmHg (05/10/16 8:00 AM) 119/64 mmHg (05/10/16 4:00 AM) Blood Pressure [90-140/60-90 mmHg] 17 BRMIN (05/10/16 12:00 PM) 16 BRMIN (05/10/16 9:03 AM) 17 BRMIN (05/10/16 8:00 AM) Respiratory Rate [14-20 BRMIN] 90 bpm (05/10/16 12:00 PM) 86 bpm (05/10/16 8:00 AM) 79 bpm (05/10/16 4:00 AM) Peripheral Pulse Rate [60-100 bpm] 68.835 kg (05/05/16 3:42 PM) 66.364 kg (04/30/16 6:50 AM) 65.455 kg (04/29/16 3:31 PM) Weight 24.49 m2 (05/05/16 3:42 PM) 23.61 m2 (04/30/16 6:50 AM) 23.29 m2 (04/29/16 3:31 PM) Body Mass Index Problem List Condition Effective Dates Status Health Status Informant Abdominal Active pain(Confirmed) Anxiety(Confirmed) Active Anxiety(Confirmed) Active Biopsy of Active liver(Confirmed) Cancer of Active cervix(Confirmed) Cervical Resolved carcinoma(Confirmed) Crohn Resolved disease(Confirmed) Depression(Confirmed Active ) Endometriosis(Confir Active med) Female genital organ Active symptoms(Confirmed)1 Gastric bypass Active operation(Confirmed) Gastric bypass Resolved status for obesity(Confirmed) Hypoglycemia(Confirm Resolved ed) Kidney Resolved infection(Confirmed) Laparoscopic Active procedure(Confirmed) Lumbar puncture Active headache(Confirmed) Lysis of Active adhesions(Confirmed) Malabsorption(Confir Resolved med) Migraine(Confirmed) Active Polycystic ovarian Resolved syndrome(Confirmed) Sinusitis(Confirmed) Active Lupus(Confirmed) Resolved 1CANCELLED Allergies, Adverse Reactions, Alerts Substance Reaction Severity Status Augmentin Active Paper Tape Active shellfish Active Medications acetaminophen 650 mg, 2 tab, Route: PO, Drug form: TAB, Q4H, Dosing Weight 65.455, kg, PRN An n 1-3/Temp > 100.4 F, Start date: 04/30/16 5:55:00 [employer] OPER[employer], Duration: 30 day, Stop date: 05/30/16 5:54:00 ICE PLANT OPERATOR Notes: Do not exceed 4 gm/day. (Same as: Tylenol) Start Date: 04/30/16 Stop Date: 05/10/16 Status: Discontinued ANES acetaminophen 1,000 mg, 100 mL, Route: IV, 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, ONCE, Dosing Weight 68.835, kg, PRN Pain Score 1-3, Start date: 05/09/16 10:00:00 [employer] OPERATOR, Duration: 1 doses or times, Stop date: Limited # of times Notes: Infuse over 15 minutesDo not exceed 4gm/day of acetaminophen MEDICAT ION WASTE Product Size: 1000 mgProduct Wasted: ___ mg Start Date: 05/09/16 Stop Date: 05/09/16 Status: Discontinued ANES diphenhydrAMINE 12.5 mg, 0.25 mL, Route: IVP, 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, Q6H, Dosing Weight 68.835, kg, PRN Itching, Start date: 05/09/16 10:00:00 [employer] PL[employer] OPERATOR, Duration: 30 day, Stop date: 9:59:00 ICE PLANT OPERATOR Notes: (Same as: Benadryl) Start Date: 05/09/16 Stop Date: 05/09/16 Status: Discontinued ANES fentaNYL 25 microgram, 0.5 mL, Route: IVP, 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, Q5Min, Dosing Weight 68.835, k g, PRN Headache 4-6, Priority: Routine, Start date: 05/09/16 10:00:00 [employer] PLANT OPERATOR, Durat ion: 4 doses or times, Stop date: Limited # of times Notes: (Same as: Sublimaze) Preservative free. Start Date: 05/09/16 Stop Date: 05/09/16 Status: Completed ANES flumazenil 0.2 mg, 2 mL, Route: IVP, 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, PRN, Dosing Weight 68.835, kg, PRN Cal zodiazepine Reversal, Initial dose, Start date: 05/09/16 10:00:00 [employer] OPERATOR, Duration: 30 day, Stop date: 06/08/16 9:59:00 ICE PLANT OPERATOR Notes: (Same as: Romazicon) Start Date: 05/09/16 Stop Date: 05/09/16 Status: Discontinued ANES hydrALAZINE 10 mg, 0.5 mL, Route: IVP, 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, Q20Min, Dosing Weight 68.835, kg, PRN Elevated BP, Start date: 05/09/16 10:00:00 ICE PL[employer] OPERATOR, Duration: 2 doses or times, Stop date: Limited # of times Notes: (Same as: Apresoline)Push over 5 minutes Start Date: 05/09/16 Stop Date: 05/09/16 Status: Discontinued ANES HYDROmorphone 0.5 mg, 0.5 mL, Route: IVP, 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, Q5Min, Dosing Weight 68.835, kg, PRN Pain Score 7-10, Start date: 05/09/16 10:00:00 ICE PL[employer] OPERATOR, Duration: 4 doses or times, Stop date: Limited # of times Start Date: 05/09/16 Stop Date: 05/09/16 Status: Discontinued ANES ketOROLAC 30 mg, 1 mL, Route: IVP, 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, ONCE, Dosing Weight 68.835, kg, Start d ate: 05/09/16 10:00:00 ICE PLANT OPERATOR, Duration: 1 doses or times, Stop date: 05/09/16 10:0 0:00 ICE PLANT OPERATOR Notes: (Same as:Toradol) IV bolus must be given >15 seconds. Give IM administration slowly and deeply into the muscle.Not for use > 4 days MEDICATION WASTE Product Size: 30 mgProduct Wasted: ___ mg Start Date: 05/09/16 Stop Date: 05/09/16 Status: Discontinued ANES labetalol 10 mg, 2 mL, Route: IVP, 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, Q5Min, Dosing Weight 68.835, kg, PRN El evated BP, Start date: 05/09/16 10:00:00 ICE PLANT OPERATOR, Duration: 5 doses or times, Stop d ate: Limited # of times Notes: (Same as: Normodyne, Trandate)Push over 2 minutes Give bolus over 2-3 mi nutes. Start Date: 05/09/16 Stop Date: 05/09/16 Status: Discontinued ANES meperidine 12.5 mg, 0.25 mL, Route: IVP, 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, Q30Min, Dosing Weight 68.835, kg, PRN Other -See Comment, For shivering, Start date: 05/09/16 10:00:00 ICE PLANT OPERATOR, Durati on: 2 doses or times, Stop date: Limited # of times Notes: (Same As: Demerol) Start Date: 05/09/16 Stop Date: 05/09/16 Status: Discontinued ANES metoprolol 1 mg, 1 mL, Route: IVP, 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, Q5Min, Dosing Weight 68.835, kg, PRN Oth er -See Comment, Start date: 05/09/16 10:00:00 [employer] PL[employer] OPERATOR, Duration: 5 doses or times, Stop date: Limited # of times Notes: (Same as: Lopressor)Push over 2 minutes Start Date: 05/09/16 Stop Date: 05/09/16 Status: Discontinued ANES morphine Sulfate 4 mg, 1 mL, Route: IVP, Drug form: SOLN, Q5Min, Dosing Weight 68.835, kg, PRN Pa in Score 7-10, Start date: 05/09/16 10:00:00 ICE PLANT OPERATOR, Duration: 3 doses or times, St op date: Limited # of times Notes: (Same as:MORPhine Sulfate) Start Date: 05/09/16 Stop Date: 05/09/16 Status: Discontinued ANES naloxone 0.4 mg, 1 mL, Route: IVP, 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, Q2MIN, Dosing Weight 68.835, kg, PRN N arcotic Reversal, Start date: 05/09/16 10:00:00 [employer] PLANT OPERATOR, Duration: 8 doses or times, Stop date: Limited # of times Notes: Same as Narcan Start Date: 05/09/16 Stop Date: 05/09/16 Status: Discontinued ANES ondansetron 4 mg, 2 mL, Route: IVP, 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, ONCE, Dosing Weight 68.835, kg, PRN Naus ea & Vomiting, Start date: 05/09/16 10:00:00 ICE PLANT OPERATOR Notes: (Same as: Rukhsana) MEDICATION WASTE Product Size: 4 mgProduct Was vinny: ___ mg Start Date: 05/09/16 Stop Date: 05/09/16 Status: Discontinued atropine 0.5 mg, 5 mL, Route: IVP, 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, ONCE, Dosing Weight 66.364, kg, PRN Br adycardia, Start date: 04/30/16 14:50:00 [employer] PL[employer] OPERATOR Start Date: 04/30/16 Stop Date: 05/10/16 Status: Discontinued buprenorphine 150 microgram, Route: BUC, Drug form: FILM, TID, Dosing Weight 66.364, kg, PRN P ain Score 1-3, Start date: 04/30/16 8:27:00 ICE PL[employer] OPERATOR, Duration: 30 day, Stop date: 8:26:00 ICE PLANT OPERATOR Start Date: 04/30/16 Stop Date: 04/30/16 Status: Deleted ceFAZolin (ANES) (ANES) Route: IV, 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, Start date: 05/09/16 8:22:00 ICE PLANT OPERATOR, Stop date: 05/09/16 9:22:00 ICE PLANT OPERATOR Start Date: 05/09/16 Stop Date: 05/09/16 Status: Completed chlordiazePOXIDE-clidinium 5 mg-2.5 mg oral capsule (Librax) 2 cap, Route: PO, Drug Form: CAP, Dosing Weight 66.364, kg, TID-Before Meals, St art date: 04/30/16 11:30:00 ICE PLANT OPERATOR, Duration: 30 day, Stop date: 05/30/16 7:30:[address] Notes: (Same As: Librax) Start Date: 04/30/16 Stop Date: 05/10/16 Status: Discontinued citalopram 40 mg, 4 tab, Route: PO, Drug form: TAB, Daily, Dosing Weight 66.364, kg, Start date: 04/30/16 9:00:00 ICE PL[employer] OPERATOR, Duration: 30 day, Stop date: 05/29/16 9:00:00 ICE PLANT OPERATOR Start Date: 04/30/16 Stop Date: 05/10/16 Status: Discontinued Citrate of Magnesia 300 ml, Route: PO, Drug Form: LIQ, Dosing Weight 66.364, kg, ONCE, Start date: 07/02/15 9:38:00 ICE PLANT OPERATOR, Stop date: 05/01/16 9:38:00 ICE PLANT OPERATOR Notes: (Same as: Citrate of Magnesia)Concentration: 1.745 gm / 30 mL Start Date: 05/01/16 Stop Date: 05/01/16 Status: Completed Citrate of Magnesia 150 ml, Route: PO, Drug Form: LIQ, Dosing Weight 66.364, kg, ONCE, Start date: 07/01/15 9:45:00 ICE PLANT OPERATOR, Stop date: 04/30/16 9:45:00 ICE PLANT OPERATOR Notes: (Same as: Citrate of Magnesia)Concentration: 1.745 gm / 30 mL Start Date: 04/30/16 Stop Date: 04/30/16 Status: Completed Classic 1 tab, PO, Daily, 0 Refill(s) Start Date: 04/30/16 Status: Ordered D5NS 1,000 mL 1,000 mL, Rate: 100 ml/hr, Infuse over: 10 hr, Route: IV, Dosing Weight 66.364 k g, Total Volume: 1,000, Start date: 04/30/16 7:08:00 ICE PLANT OPERATOR, Duration: 30 day, Stop date: 05/30/16 7:07:00 ICE PLANT OPERATOR Start Date: 04/30/16 Stop Date: 05/06/16 Status: Discontinued D5W 1,000 mL 1,000 mL, Rate: 40 ml/hr, Infuse over: 25 hr, Route: IV, Dosing Weight 68.835 kg , Total Volume: 1,000, Start date: 05/08/16 10:53:00 ICE PLANT OPERATOR, Duration: 30 day, Stop date: 06/07/16 10:52:00 ICE PLANT OPERATOR Start Date: 05/08/16 Stop Date: 05/10/16 Status: Discontinued dexamethasone (ANES) Route: IV, 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, ONCE, Stop date: 05/09/16 9:12:00 ICE PLANT OPERATOR Start Date: 05/09/16 Stop Date: 05/09/16 Status: Completed diazepam 10 mg, Route: PO, Drug form: TAB, TID, Dosing Weight 66.364, kg, Start date: 9:00:00 ICE PLANT OPERATOR, Duration: 30 day, Stop date: 05/29/16 17:00:00 ICE PLANT OPERATOR Start Date: 04/30/16 Stop Date: 04/30/16 Status: Deleted diazepam 10 mg, 2 tab, Route: PO, Drug form: TAB, Q8H, Dosing Weight 66.364, kg, Start da te: 04/30/16 16:00:00 [employer] PLANT OPERATOR, Duration: 30 day, Stop date: 05/30/16 11:30:00 ICE PLANT OPERATOR Notes: (Same as: Valium) Start Date: 04/30/16 Stop Date: 05/10/16 Status: Discontinued diazepam 10 mg oral tablet 10 mg=1 tab, PO, TID, 0 Refill(s) Start Date: 04/30/16 Status: Ordered dicyclomine 20 mg, 1 tab, Route: PO, Drug form: TAB, TID, Dosing Weight 66.364, kg, PRN Spas m, Start date: 04/30/16 8:27:00 ICE PLANT OPERATOR, Duration: 30 day, Stop date: 05/30/16 8:26: 00 ICE PLANT OPERATOR Notes: (Same as: Bentyl) Start Date: 04/30/16 Stop Date: 05/10/16 Status: Discontinued Dilaudid 1 mg, 1 mL, Route: IVP, 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, Q6H, Dosing Weight 68.835, kg, PRN Pain Score 7-10, Start date: 05/06/16 17:35:00 ICE PLANT OPERATOR, Duration: 30 day, Stop date: 05/16 07/01 17:34:00 ICE PLANT OPERATOR Start Date: 05/06/16 Stop Date: 05/10/16 Status: Discontinued Dilaudid 1 mg, 1 mL, Route: IVP, 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, Q4H, Dosing Weight 68.835, kg, PRN Pain Score 7-10, Start date: 05/06/16 12:47:00 ICE PLANT OPERATOR, Duration: 30 day, Stop date: 05/16 07/01 12:46:00 ICE PLANT OPERATOR Start Date: 05/06/16 Stop Date: 05/06/16 Status: Discontinued enoxaparin 30 mg, 0.3 mL, Route: SUB-Q, 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, [id number], Dosing Weight 68.835, kg, Start date: 05/09/16 22:00:00 ICE PLANT OPERATOR, Duration: 30 day, Stop date: 06/08/16 10:00: 00 ICE PLANT OPERATOR Notes: (Same as: Lovenox) Start Date: 05/09/16 Stop Date: 05/10/16 Status: Discontinued famotidine (ANES) Route: IV, 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, ONCE, Stop date: 05/09/16 9:22:00 ICE PLANT OPERATOR Start Date: 05/09/16 Stop Date: 05/09/16 Status: Completed fentaNYL 1 patch, Route: TOP, Drug form: ERFILM, Q72H, Dosing Weight 66.364, kg, Start da te: 04/30/16 9:00:00 ICE PLANT OPERATOR, Duration: 30 day, Stop date: 05/27/16 9:00:00 ICE PLANT OPERATOR Start Date: 04/30/16 Stop Date: 05/10/16 Status: Discontinued fentaNYL (ANES) Route: IV, 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, ONCE, Stop date: 05/09/16 9:12:00 ICE PLANT OPERATOR Start Date: 05/09/16 Stop Date: 05/09/16 Status: Completed folic acid 2 mg, 2 tab, Route: PO, Drug form: TAB, Daily, Dosing Weight 66.364, kg, Start d ate: 04/30/16 9:00:00 ICE PLANT OPERATOR, Duration: 30 day, Stop date: 05/29/16 9:00:00 ICE PLANT OPERATOR Notes: (Same as: Folvite) Start Date: 04/30/16 Stop Date: 05/10/16 Status: Discontinued gabapentin 100 mg oral capsule 100 mg, 1 cap, Route: PO, Drug form: CAP, Q8H, Dosing Weight 66.364, kg, Start d ate: 04/30/16 16:00:00 ICE PLANT OPERATOR, Duration: 30 day, Stop date: 05/30/16 8:00:00 ICE PLANT OPERATOR Notes: (Same as: Neurontin) Start Date: 04/30/16 Stop Date: 05/10/16 Status: Discontinued hydromorphone 1.25 mg, 1.25 mL, Route: IV, 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, Q4H, Dosing Weight 66.364, kg, PRN Pain Score 6-10, Start date: 04/30/16 7:07:00 ICE PLANT OPERATOR, Stop date: 05/30/16 7:06:[address] Start Date: 04/30/16 Stop Date: 05/04/16 Status: Discontinued hydromorphone 1 mg, 1 mL, Route: IV, 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, Q2H, Dosing Weight 66.364, kg, PRN Pain S core 4-6, Start date: 05/04/16 14:30:00 ICE PLANT OPERATOR, Duration: 30 day, Stop date: 14:29:00 ICE PLANT OPERATOR Start Date: 05/04/16 Stop Date: 05/06/16 Status: Discontinued hydromorphone 1 mg, Route: IVP, ONCE, Dosing Weight 65.455, kg, Priority: STAT, Start date: 0:06:00 ICE PLANT OPERATOR, Stop date: 04/30/16 0:06:00 ICE PLANT OPERATOR Start Date: 04/30/16 Stop Date: 04/30/16 Status: Completed lidocaine (ANES) Route: IV, 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, ONCE, Stop date: 05/09/16 9:12:00 ICE PLANT OPERATOR Start Date: 05/09/16 Stop Date: 05/09/16 Status: Completed LR 1000 mL INJ (ANES) Route: IV, Total Volume: 1,000, Start date: 05/09/16 8:21:00 ICE PLANT OPERATOR, Stop date: 9:21:00 ICE PLANT OPERATOR Start Date: 05/09/16 Stop Date: 05/09/16 Status: Completed Macrobid 100 mg, 1 cap, Route: PO, Drug form: CAP, BID, Dosing Weight 66.364, kg, Start d ate: 04/30/16 9:00:00 ICE PLANT OPERATOR, Duration: 30 day, Stop date: 05/29/16 21:00:00 ICE PLANT OPERATOR Notes: Not recommended for patients with CrCl<50 ml/min (Same as:Macrobid) With food. Start Date: 04/30/16 Stop Date: 05/10/16 Status: Discontinued Mesalamine (Pentasa) 500 mg capsule Mesalamine (Pentasa) 500 mg capsule, 1,000 mg, 2 cap, Drug form: MISC, Route: PO , TID, 05/04/16 13:00:00 ICE PLANT OPERATOR, Duration: 30 day, Stop date: 06/03/16 9:00:00 ICE PLANT OPERATOR Start Date: 05/04/16 Stop Date: 05/07/16 Status: Voided With Results midazolam (ANES) Route: IV, Drug form: SOLN, ONCE, Stop date: 05/09/16 9:07:00 ICE PLANT OPERATOR Start Date: 05/09/16 Stop Date: 05/09/16 Status: Completed MiraLax 17 gm, 1 pkt, Route: PO, Drug form: PWDR, BID, Dosing Weight 68.835, kg, Start d ate: 05/07/16 9:00:00 ICE PLANT OPERATOR, Duration: 30 day, Stop date: 06/05/16 17:00:00 ICE PLANT OPERATOR Notes: Dissolve in 8 oz of water or juice.(Same as: Miralax) Start Date: 05/07/16 Stop Date: 05/10/16 Status: Discontinued mirtazapine 7.5 mg, 0.5 tab, Route: PO, Drug form: TAB, Bedtime, Dosing Weight 66.364, kg, S tart date: 04/30/16 21:00:00 ICE PLANT OPERATOR, Duration: 30 day, Stop date: 05/29/16 21:00:00 ICE PLANT OPERATOR Notes: (Same as:Remeron) Start Date: 04/30/16 Stop Date: 05/10/16 Status: Discontinued mirtazapine 7.5 mg oral tablet 7.5 mg=1 tab, PO, Bedtime, 0 Refill(s) Start Date: 04/30/16 Status: Ordered morphine Sulfate 4 mg, 1 mL, Route: IVP, Drug form: SOLN, Q4H, Dosing Weight 65.455, kg, PRN Pain Score 7-10, Start date: 04/30/16 5:55:00 ICE PLANT OPERATOR, Duration: 30 day, Stop date: 05/15 10/29 5:54:00 ICE PLANT OPERATOR Notes: (Same as:MORPhine Sulfate) Start Date: 04/30/16 Stop Date: 04/30/16 Status: Discontinued morphine Sulfate 4 mg, Route: IVP, ONCE, Dosing Weight 65.455, kg, Priority: STAT, Start date: 5:01:00 ICE PLANT OPERATOR, Stop date: 04/30/16 5:01:00 ICE PLANT OPERATOR Start Date: 04/30/16 Stop Date: 04/30/16 Status: Completed nitrofurantoin 100 mg, PO, BID, # 14 cap, 0 Refill(s) Start Date: 04/30/16 Stop Date: 05/10/16 Status: Discontinued nitroglycerin 0.4 mg sublingual tablet 0.4 mg, 1 tab, Route: SL, Drug form: TAB, Q5Min, Dosing Weight 66.364, kg, PRN C hest Pain, Start date: 04/30/16 14:50:00 ICE PLANT OPERATOR, Duration: 30 day, Stop date: 05/30 14:49:00 ICE PLANT OPERATOR Notes: (Same as:Nitroquick, Nitrostat)"Do Not Crush" Sublingual tablet Start Date: 04/30/16 Stop Date: 05/10/16 Status: Discontinued ondansetron 4 mg, 2 mL, Route: IVP, 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, Q6H, Dosing Weight 65.455, kg, PRN Nause a & Vomiting, Start date: 04/30/16 5:55:00 ICE PLANT OPERATOR, Duration: 30 day, Stop date: 05/30/16 5:54:00 ICE PLANT OPERATOR Notes: (Same as: Rukhsana) MEDICATION WASTE Product Size: 4 mgProduct Was vinny: ___ mg Start Date: 04/30/16 Stop Date: 05/10/16 Status: Discontinued ondansetron 4 mg, 2 mL, Route: IVP, 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, ONCE, Dosing Weight 65.455, kg, Priority : STAT, Start date: 04/29/16 19:47:00 ICE PLANT OPERATOR, Stop date: 04/29/16 19:47:00 ICE PLANT OPERATOR Notes: (Same as: Zofran) MEDICATION WASTE Product Size: 4 mgProduct Was vinny: ___ mg Start Date: 04/29/16 Stop Date: 04/29/16 Status: Completed ondansetron 8 mg, 2 tab, Route: PO, Drug form: TAB, Q8H, Dosing Weight 66.364, kg, PRN Nause a & Vomiting, Start date: 04/30/16 8:40:00 ICE PLANT OPERATOR, Duration: 30 day, Stop date: 05/30/16 8:39:00 ICE PLANT OPERATOR Notes: (Same as: Zofran) Start Date: 04/30/16 Stop Date: 05/10/16 Status: Discontinued ondansetron 4 mg, Route: IVP, 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, ONCE, Dosing Weight 65.455, kg, Priority: STAT , Start date: 04/30/16 5:01:00 ICE PLANT OPERATOR, Stop date: 04/30/16 5:01:00 ICE PLANT OPERATOR Start Date: 04/30/16 Stop Date: 04/30/16 Status: Completed ondansetron (ANES) Route: IV, 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, ONCE, Stop date: 05/09/16 9:34:00 ICE PLANT OPERATOR Start Date: 05/09/16 Stop Date: 05/09/16 Status: Completed ondansetron 8 mg oral tablet 8 mg=1 tab, PO, TID, 0 Refill(s) Start Date: 04/30/16 Status: Ordered pantoprazole 40 mg, 1 tab, Route: PO, Drug form: ECTAB, BID, Dosing Weight 66.364, kg, Start date: 04/30/16 9:00:00 ICE PLANT OPERATOR, Duration: 30 day, Stop date: 05/29/16 17:00:00 ICE PLANT OPERATOR Notes: Tablet should not be chewed or crushed.(Same as: Protonix) Start Date: 04/30/16 Stop Date: 05/10/16 Status: Discontinued Pentasa 500 mg, Route: PO, TID, Dosing Weight 66.364, kg, Start date: 04/30/16 9:00:[address], Duration: 30 day, Stop date: 05/29/16 17:00:00 ICE PLANT OPERATOR Start Date: 04/30/16 Stop Date: 04/30/16 Status: Deleted Pentasa 1,000 mg, 4 cap, Route: PO, Drug form: ERCAP, TID, Dosing Weight 66.364, kg, Sta rt date: 04/30/16 9:00:00 ICE PLANT OPERATOR, Duration: 30 day, Stop date: 05/29/16 17:00:00 CS T Start Date: 04/30/16 Stop Date: 05/04/16 Status: Voided With Results Pentasa 500 mg, PO, TID, 0 Refill(s) Start Date: 04/30/16 Stop Date: 04/30/16 Status: Deleted phenylephrine (ANES) Route: IV, 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, ONCE, Stop date: 05/09/16 9:34:00 ICE PLANT OPERATOR Start Date: 05/09/16 Stop Date: 05/09/16 Status: Completed Please bring Pt's Own Buprenorphine to pharmacy for label Please bring Pt's Own Buprenorphine to pharmacy for label, Reminder, Drug form: MISC, Route: MISC, Q12H, 04/30/16 9:00:00 ICE PLANT OPERATOR, Duration: 30 day, Stop date: 05/15 09/28 21:00:00 ICE PLANT OPERATOR Start Date: 04/30/16 Stop Date: 04/30/16 Status: Deleted predniSONE 10 mg, 1 tab, Route: PO, Drug form: TAB, Daily, Start date: 04/30/16 9:00:00 ICE PLANT OPERATOR , Duration: 14 day, Stop date: 05/13/16 9:00:00 ICE PLANT OPERATOR Notes: (Same as: PredniSONE) Take with food. Start Date: 04/30/16 Stop Date: 05/06/16 Status: Voided With Results Multivitamins with Folic Acid 0.8 mg oral tablet 1 tab, Route: PO, Drug Form: TAB, Dosing Weight 66.364, kg, Daily, Start date: 1 07/01/15 9:00:00 ICE PLANT OPERATOR, Duration: 30 day, Stop date: 05/29/16 9:00:00 ICE PLANT OPERATOR Start Date: 04/30/16 Stop Date: 05/10/16 Status: Discontinued promethazine 50 mg, 2 tab, Route: PO, Drug form: TAB, Q6H, Dosing Weight 66.364, kg, PRN as n eeded for allergy symptoms, Start date: 04/30/16 8:27:00 ICE PLANT OPERATOR, Stop date: 7 8:26:00 ICE PLANT OPERATOR Notes: (Same as: Phenergan) Start Date: 04/30/16 Stop Date: 05/10/16 Status: Discontinued propofol (ANES) Route: IV, 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, ONCE, Stop date: 05/09/16 9:12:00 ICE PLANT OPERATOR Start Date: 05/09/16 Stop Date: 05/09/16 Status: Completed propranolol 40 mg, 2 tab, Route: PO, Drug form: TAB, Daily, Dosing Weight 66.364, kg, Start date: 05/03/16 17:00:00 ICE PLANT OPERATOR, Duration: 30 day, Stop date: 06/01/16 17:00:00 ICE PLANT OPERATOR Notes: Give with food.(Same as: Inderal) Start Date: 05/03/16 Stop Date: 05/10/16 Status: Discontinued propranolol 80 mg, 1 cap, Route: PO, Drug form: ERCAP, Daily, Dosing Weight 66.364, kg, Star t date: 04/30/16 17:00:00 ICE PLANT OPERATOR, Duration: 30 day, Stop date: 05/29/16 17:00:00 CS T Notes: Take with food. Do not crush or chew. (Same as: Inderal LA) Start Date: 04/30/16 Stop Date: 05/03/16 Status: Discontinued pt own buprenorphine (Belbuca) pt own buprenorphine (Belbuca), 150 microgram, Drug form: MISC, Route: BUC, TID, PRN Pain Score 4-6, 04/30/16 20:11:00 ICE PLANT OPERATOR, Duration: 30 day, Stop date: 05/30/16 20:10:00 ICE PLANT OPERATOR Start Date: 04/30/16 Stop Date: 05/10/16 Status: Discontinued Relistor 12 mg, 0.6 mL, Route: SUB-Q, 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, Daily, Dosing Weight 68.835, kg, St art date: 05/07/16 9:00:00 ICE PLANT OPERATOR, Duration: 30 day, Stop date: 06/05/16 9:00:00 CS T Notes: Same as: Relistor Restricted to Palliative Care Start Date: 05/07/16 Stop Date: 05/10/16 Status: Discontinued rocuronium (ANES) Route: IV, 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, ONCE, Stop date: 05/09/16 9:12:00 ICE PLANT OPERATOR Start Date: 05/09/16 Stop Date: 05/09/16 Status: Completed Saline Flush 0.9% 10 ml, Route: IVP, Drug Form: INJ, Dosing Weight 65.455, kg, PRN, PRN Line Flush , Start date: 04/30/16 5:55:00 ICE PLANT OPERATOR, Duration: 30 day, Stop date: 05/30/16 5:54:0 0 ICE PLANT OPERATOR Notes: (Same as: BD Posiflush) Start Date: 04/30/16 Stop Date: 05/10/16 Status: Discontinued scopolamine (ANES) Route: Transdermal, Drug form: ERFILM, ONCE, Stop date: 05/09/16 9:22:00 ICE PLANT OPERATOR Start Date: 05/09/16 Stop Date: 05/09/16 Status: Completed scopolamine 1.5 mg transdermal film 1 patch, Route: TOP, Drug Form: ERFILM, Dosing Weight 66.364, kg, Q72H, PRN Othe r -See Comment, 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, Duration: 30 day, Stop date: 0 05/30/16 8:27:00 [employer] Notes: Change patch every 72 hours (Same as: Transderm-Scop) Start Date: 04/30/16 Stop Date: 05/10/16 Status: Discontinued Senokot S 2 tab, Route: PO, Drug Form: TAB, Dosing Weight 66.364, kg, Bedtime, Start date: 04/30/16 21:00:00 [employer], Duration: 30 day, Stop date: 05/29/16 21:00:00 [employer] Notes: (Same as Senokot-S) Equiv. to Marlene-Colace. Start Date: 04/30/16 Stop Date: 05/10/16 Status: Discontinued Senokot S 2 tab, PO, Bedtime, 0 Refill(s) Start Date: 04/30/16 Status: Ordered Sodium Chloride 0.9% (Bolus) IV 1,000 mL, 2,000 ml/hr, Infuse Over: 30 minutes, Route: IV, 1,000, 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 , ONCE, Priority: STAT, Dosing Weight 65.455 kg, Start date: 04/29/16 19:47:[address], Duration: 1 doses or times, Stop date: 04/29/16 19:47:00 [employer] Start Date: 04/29/16 Stop Date: 04/29/16 Status: Completed sodium chloride 0.9% 1000 ml INJ 1,000 mL 1,000 mL, Rate: 125 ml/hr, Infuse over: 8 hr, Route: IV, Dosing Weight 65.455 kg , Total Volume: 1,000, Start date: 04/30/16 5:55:00 [employer], Duration: 30 day, Stop date: 05/30/16 5:54:00 [employer] Start Date: 04/30/16 Stop Date: 04/30/16 Status: Discontinued sugammadex (ANES) Route: IV, Drug form: SOLN, ONCE, Stop date: 05/09/16 9:34:00 [employer] Start Date: 05/09/16 Stop Date: 05/09/16 Status: Completed temazepam 30 mg, 2 cap, Route: PO, Drug form: CAP, Bedtime, Dosing Weight 66.364, kg, PRN Sleep, 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, Duration: 30 day, Stop date: 05/30/16 8 :27:00 ICE PLANT OPERATOR Notes: (Same As: Restoril) Start Date: 04/30/16 Stop Date: 05/10/16 Status: Discontinued Tylenol with Codeine #3 oral tablet 1 - 2 tab, PO, Q4H, PRN Pain, X 2 week, # 30 tab, 2 Refill(s) Start Date: 05/10/16 Stop Date: 06/21/16 Status: Ordered Xifaxan 550 mg, 1 tab, Route: PO, Drug form: TAB, BID, Dosing Weight 66.364, kg, Start d ate: 04/30/16 9:00:00 ICE PLANT OPERATOR, Duration: 30 day, Stop date: 05/29/16 17:00:00 ICE PLANT OPERATOR Notes: Same as: Xifaxan Start Date: 04/30/16 Stop Date: 05/10/16 Status: Discontinued Xifaxan 550 mg oral tablet 550 mg=1 tab, PO, BID, 0 Refill(s) Start Date: 04/30/16 Status: Ordered zolpidem 5 mg, 1 tab, Route: PO, Drug form: TAB, Bedtime, Dosing Weight 66.364, kg, PRN a s needed for sleep, Start date: 04/30/16 22:29:00 ICE PLANT OPERATOR, Duration: 30 day, Stop da te: 05/30/16 22:28:00 ICE PLANT OPERATOR Notes: (Same As: Ronen) Start Date: 04/30/16 Stop Date: 05/10/16 Status: Discontinued Results ELECTROLYTES 1 2 3 Most recent to oldest [Reference Range]: 142 mEq/L (05/05/16 7:00 AM) 139 mEq/L (04/29/16 11:10 PM) Sodium Lvl [135-145 mEq/L] 3.8 mEq/L (05/05/16 7:00 AM) 4.1 mEq/L (04/29/16 11:10 PM) Potassium Lvl [3.5-5.1 mEq/L] 105 mEq/L (05/05/16 7:00 AM) 103 mEq/L (04/29/16 11:10 PM) Chloride Lvl [95-109 mEq/L] 29 mEq/L (05/05/16 7:00 AM) 28 mEq/L (04/29/16 11:10 PM) CO2 [24-32 mEq/L] 11.8 mEq/L (05/05/16 7:00 AM) 12.1 mEq/L (04/29/16 11:10 PM) AGAP [10.0-20.0 mEq/L] CHEM PANEL 1 2 3 Most recent to oldest [Reference Range]: 0.66 mg/dL (05/05/16 7:00 AM) 0.74 mg/dL (04/29/16 11:10 PM) Creatinine Lvl [0.50-1.40 mg/dL] 111 mL/min/1.73m2 1 *NA* (05/05/16 7:00 AM) 102 mL/min/1.73m2 2 *NA* (04/29/16 11:10 PM) eGFR 8 mg/dL (05/05/16 7:00 AM) 19 mg/dL (04/29/16 11:10 PM) BUN [7-22 mg/dL] 12 (05/05/16 7:00 AM) 26 *HI* (04/29/16 11:10 PM) B/C Ratio [6-25] 76 mg/dL (05/05/16 7:00 AM) 78 mg/dL (04/29/16 11:10 PM) Glucose Lvl [70-99 mg/dL] 5.4 g/dL *LOW* (05/05/16 7:00 AM) 6.1 g/dL *LOW* (04/29/16 11:10 PM) Total Protein [6.4-8.4 g/dL] 2.8 g/dL *LOW* (05/05/16 7:00 AM) 3.1 g/dL *LOW* (04/29/16 11:10 PM) Albumin Lvl [3.5-5.0 g/dL] 2.6 g/dL *LOW* (05/05/16 7:00 AM) 3.0 g/dL (04/29/16 11:10 PM) Globulin [2.7-4.2 g/dL] 1.1 (05/05/16 7:00 AM) 1.0 (04/29/16 11:10 PM) A/G Ratio [0.7-1.6] 8.0 mg/dL *LOW* (05/05/16 7:00 AM) 8.0 mg/dL *LOW* (04/29/16 11:10 PM) Calcium Lvl [8.5-10.5 mg/dL] 43 unit/L (05/05/16 7:00 AM) 56 unit/L (04/29/16 11:10 PM) ALT [0-65 unit/L] 8 unit/L (05/05/16 7:00 AM) 20 unit/L (04/29/16 11:10 PM) AST [0-37 unit/L] 65 unit/L (05/05/16 7:00 AM) 64 unit/L (04/29/16 11:10 PM) Alk Phos [39-136 unit/L] 0.1 mg/dL *LOW* (05/05/16 7:00 AM) <0.1 mg/dL *LOW* (04/29/16 11:10 PM) Bili Total [0.2-1.3 mg/dL] 172 unit/L (04/29/16 11:10 PM) Lipase Lvl [73-393 unit/L] 1Result Comment: [...] mul tiplied by the estimated BMI. ENDOCRINOLOGY 1 2 3 Most recent to oldest [Reference Range]: 2 mIU/mL *NA* (04/29/16 11:10 PM) hCG Tot URINE AND STOOL 1 2 3 Most recent to oldest [Reference Range]: Marked *ABN* (04/29/16 8:56 PM) UA Turbidity [Clear] Yellow *NA* (04/29/16 8:56 PM) UA Color [Yellow] 7.0 (04/29/16 8:56 PM) UA pH [5.0-8.0] 1.014 (04/29/16 8:56 PM) UA Spec Grav [<=1.030] Negative mg/dL *NA* (04/29/16 8:56 PM) UA Glucose [Negative mg/dL] Negative (04/29/16 8:56 PM) UA Blood [Negative] Negative mg/dL *NA* (04/29/16 8:56 PM) UA Ketones [Negative mg/dL] Negative mg/dL (04/29/16 8:56 PM) UA Protein [Negative mg/dL] <=1.0 mg/dL *NA* (04/29/16 8:56 PM) UA Urobilinogen [0.1-1.0 mg/dL] Negative *NA* (04/29/16 8:56 PM) UA Bili [Negative] Trace *ABN* (04/29/16 8:56 PM) UA Leuk Est [Negative] Negative (04/29/16 8:56 PM) UA Nitrite [Negative] 5 /HPF (04/29/16 8:56 PM) UA WBC [0-5 /HPF] 1 /HPF (04/29/16 8:56 PM) UA RBC [0-2 /HPF] Occasional /HPF *NA* (04/29/16 8:56 PM) UA Bacteria [None Seen /HPF] None Seen *NA* (04/29/16 8:56 PM) UA Sq Epi Few /HPF *NA* (04/29/16 8:56 PM) UA Amorph Adrianne [None Seen /HPF] HEMATOLOGY 1 2 3 Most recent to oldest [Reference Range]: 10.2 K/CMM (05/10/16 4:05 AM) 5.3 K/CMM (05/05/16 7:00 AM) 6.4 K/CMM (04/29/16 11:10 PM) WBC [3.7-10.4 K/CMM] 3.10 M/CMM *LOW* (05/10/16 4:05 AM) 2.73 M/CMM *LOW* (05/05/16 7:00 AM) 3.30 M/CMM *LOW* (04/29/16 11:10 PM) RBC [4.20-5.40 M/CMM] 9.3 g/dL *LOW* (05/10/16 4:05 AM) 8.1 g/dL *LOW* (05/05/16 7:00 AM) 9.8 g/dL *LOW* (04/29/16 11:10 PM) Hgb [12.0-16.0 g/dL] 28.2 % *LOW* (05/10/16 4:05 AM) 24.6 % *LOW* (05/05/16 7:00 AM) 29.9 % *LOW* (04/29/16 11:10 PM) Hct [36.0-48.0 %] 90.7 fL (05/10/16 4:05 AM) 90.3 fL (05/05/16 7:00 AM) 90.6 fL (04/29/16 11:10 PM) MCV [80.0-98.0 fL] 29.9 pg (05/10/16 4:05 AM) 29.5 pg (05/05/16 7:00 AM) 29.8 pg (04/29/16 11:10 PM) MCH [27.0-31.0 pg] 33.0 g/dL (05/10/16 4:05 AM) 32.7 g/dL (05/05/16 7:00 AM) 32.9 g/dL (04/29/16 11:10 PM) MCHC [32.0-36.0 g/dL] 16.4 % *HI* (05/10/16 4:05 AM) 15.8 % *HI* (05/05/16 7:00 AM) 15.6 % *HI* (04/29/16 11:10 PM) RDW [11.5-14.5 %] 304 K/CMM (05/10/16 4:05 AM) 330 K/CMM (05/05/16 7:00 AM) 391 K/CMM (04/29/16 11:10 PM) Platelet [133-450 K/CMM] 8.6 fL (05/10/16 4:05 AM) 8.8 fL (05/05/16 7:00 AM) 8.5 fL (04/29/16 11:10 PM) MPV [7.4-10.4 fL] 70.1 % (05/10/16 4:05 AM) 47.1 % (05/05/16 7:00 AM) 54.5 % (04/29/16 11:10 PM) Segs [45.0-75.0 %] 19.9 % *LOW* (05/10/16 4:05 AM) 38.2 % (05/05/16 7:00 AM) 31.6 % (04/29/16 11:10 PM) Lymphocytes [20.0-40.0 %] 8.1 % (05/10/16 4:05 AM) 7.0 % (05/05/16 7:00 AM) 9.3 % (04/29/16 11:10 PM) Monocytes [2.0-12.0 %] 1.2 % (05/10/16 4:05 AM) 6.8 % *HI* (05/05/16 7:00 AM) 3.4 % (04/29/16 11:10 PM) Eosinophils [0.0-4.0 %] 0.7 % (05/10/16 4:05 AM) 0.9 % (05/05/16 7:00 AM) 1.2 % *HI* (04/29/16 11:10 PM) Basophils [0.0-1.0 %] 7.2 K/CMM (05/10/16 4:05 AM) 2.5 K/CMM (05/05/16 7:00 AM) 3.5 K/CMM (04/29/16 11:10 PM) Segs-Bands # [1.5-8.1 K/CMM] 2.0 K/CMM (05/10/16 4:05 AM) 2.0 K/CMM (05/05/16 7:00 AM) 2.0 K/CMM (04/29/16 11:10 PM) Lymphocytes # [1.0-5.5 K/CMM] 0.8 K/CMM (05/10/16 4:05 AM) 0.4 K/CMM (05/05/16 7:00 AM) 0.6 K/CMM (04/29/16 11:10 PM) Monocytes # [0.0-0.8 K/CMM] 0.1 K/CMM (05/10/16 4:05 AM) 0.4 K/CMM (05/05/16 7:00 AM) 0.2 K/CMM (04/29/16 11:10 PM) Eosinophils # [0.0-0.5 K/CMM] 0.1 K/CMM (05/10/16 4:05 AM) 0.1 K/CMM (04/29/16 11:10 PM) Basophils # [0.0-0.2 K/CMM] 12.7 seconds (04/30/16 1:31 AM) PT [12.0-14.7 seconds] 0.93 (04/30/16 1:31 AM) INR [0.85-1.17] 28.5 seconds (04/30/16 1:31 AM) PTT [22.9-35.8 seconds] Immunizations Given and Recorded Vaccine Date Status [...] Plan Extracted from: Title: Clinical Document Author: Tulio Nguyen MD Date: 05/10/16 Progress Note - Daily [facility] Completed: Apr, 14:41 by Tulio Nguyen MD RM: [id number] - 1P, SE [id number] (: 1975) F Attending: Juan Pablo Garza MDPhone: Service: Internal Medicine Reason for Admission: ABDOMINAL PAIN Working DRG: Major gastrointestinal disorders & peritoneal infections w CC Code status: None Specified=FULL CODECurrent diet: Isolation: None Documented Allergies: Paper Tape, Augmentin, shellfish SUBJECTIVE Preop pain resolved. Sore at incisions OBJECTIVE Abd soft. Mild distension. No peritonitis 24hr Labs 05/10 0405 WBC10.2 RBC3.10 L Hgb9.3 L Hct28.2 L MCV90.7 MCH29.9 MCHC33.0 RDW16.4 H Pyhdhmml020 MPV8.6 Segs70.1 Monocytes8.1 Jttwfitotxz80.9 L Eosinophils1.2 Basophils0.7 Segs-Bands #7.2 Lymphocytes #2.0 Monocytes #0.8 Eosinophils #0.1 Basophils #0.1 Cosme still necessary (Yes/No): Line still necessary (Yes/No): VitalsTmp(F)[id number] 05/10 12:[id number]/[id number]--- 05/10 09:03 1697 21% 05/10 08:8.151072/061479--- 05/10 04:0098.075497/64--97--- 05/10 00:8.662931/83--97--- 24 Hr Tmax: 98.5F (36.94c) at 05/10 12:00Vital Signs are the last 5 in the past 48 hours. DateWt(kg)Wt(lb)Ht(cm)Ht(in)Method 05/05 68.83 151.28004.64 66.00Measured 04/30 66.36 146.89084.64 66.00Estimated 04/29 (initial) 65.45 144.00Estimated 67.64 66.00Stated I&ORecordInOutBal 04/2724hr Tot 1 0 1 04/2624hr Tot 607 5 602 Medications (41) Active Scheduled Meds (16): 04/30/16 chlordiazePOXIDE-clidinium (chlordiazePOXIDE-clidinium 5 mg-2.5 mg oral capsule (Librax)) 2 cap PO TID-Before Meals 04/30/16 citalopram 40 mg PO Daily 04/30/16 diazepam 10 mg PO Q8H 04/30/16 docusate-senna (Senokot S) 2 tab PO Bedtime 05/09/16 enoxaparin 30 mg SUB-Q [id number] 04/30/16 fentaNYL 1 patch TOP Q72H 04/30/16 folic acid 2 mg PO Daily 04/30/16 gabapentin (gabapentin 100 mg oral capsule) 100 mg PO Q8H 05/07/16 methylnaltrexone (Relistor) 12 mg SUB-Q Daily 04/30/16 mirtazapine 7.5 mg PO Bedtime 04/30/16 multivitamin, ( Multivitamins with Folic Acid 0.8 mg oral tablet) 1 tab PO Daily 04/30/16 nitrofurantoin (Macrobid) 100 mg PO BID 04/30/16 pantoprazole 40 mg PO BID 05/07/16 polyethylene glycol 3350 (MiraLax) 17 gm PO BID 05/03/16 propranolol 40 mg PO Daily 04/30/16 riFAXimin (Xifaxan) 550 mg PO BID Unscheduled Meds: None PRN Meds (): 04/30/16 acetaminophen 650 mg PO Q4H 04/30/16 dicyclomine 20 mg PO TID 05/06/16 hydromorphone (Dilaudid) 1 mg IVP Q6H 04/30/16 nitroglycerin (nitroglycerin 0.4 mg sublingual tablet) 0.4 mg SL Q5Min 04/30/16 non-formulary (pt own buprenorphine (Belbuca)) 150 microgram BUC TID 04/30/16 ondansetron 4 mg IVP Q6H 04/30/16 ondansetron 8 mg PO Q8H 04/30/16 promethazine 50 mg PO Q6H 04/30/16 scopolamine (scopolamine 1.5 mg transdermal film) 1 patch TOP Q72H 04/30/16 sodium chloride (Saline Flush 0.9%) 10 ml IVP PRN 04/30/16 temazepam 30 mg PO Bedtime 04/30/16 zolpidem 5 mg PO Bedtime One Time Meds (12): (Completed) dexamethasone (dexamethasone (ANES)) IV ONCE (Completed) famotidine (famotidine (ANES)) IV ONCE (Completed) fentaNYL (fentaNYL (ANES)) IV ONCE 05/09/16 (Discontinued) ketOROLAC (ANES ketOROLAC) 30 mg IVP ONCE (Completed) lidocaine (lidocaine (ANES)) IV ONCE (Completed) midazolam (midazolam (ANES)) IV ONCE (Completed) ondansetron (ondansetron (ANES)) IV ONCE (Completed) phenylephrine (phenylephrine (ANES)) IV ONCE (Completed) propofol (propofol (ANES)) IV ONCE (Completed) rocuronium (rocuronium (ANES)) IV ONCE (Completed) scopolamine (scopolamine (ANES)) Transdermal ONCE (Completed) sugammadex (sugammadex (ANES)) IV ONCE Continuous Infusions (1): 05/08/16 D5W 1,000 mL 1,000 mL 40 ml/hr ASSESSMENT & EXAM PLAN & TREATMENT Pt is cleared to dc home on surgery standpoint, follow up in 2 weeks. DIAGNOSES & PROBLEMS Ready for Discharge (Yes/No)? TEACHING ATTESTATION
--- OUTSIDE RECORDS SUMMARY | 2018-09-18 17:16 | XMS REPORT | Summary of Care ---
Author Author [facility] Organization [facility] Address Unknown Phone Unavailable Encounter YOGI Andrea(MECHELLE) [id number] Date(s): 07/13/16 - 07/13/16 [facility] [address] [place] [address]- Discharge Diagnosis: Abdominal pain Discharge Diagnosis: Joint pain Discharge Disposition: Home or Self Care Attending Physician: Ezekiel Márquez DO Admitting Physician: Ezekiel Márquez DO Vital Signs 1 2 3 Most recent to oldest [Reference Range]: 167.64 cm (07/13/16 3:46 AM) Height 97.8 DegF (07/13/16 12:25 PM) 98 DegF (07/13/16 4:07 AM) 98.3 DegF (07/13/16 3:46 AM) Temperature Oral [96.4-99.1 DegF] 116/72 mmHg (07/13/16 12:25 PM) 122/76 mmHg (07/13/16 9:39 AM) 112/62 mmHg (07/13/16 7:05 AM) Blood Pressure [90-140/60-90 mmHg] 16 BRMIN (07/13/16 12:25 PM) 19 BRMIN (07/13/16 9:39 AM) 17 BRMIN (07/13/16 7:05 AM) Respiratory Rate [14-20 BRMIN] 74 bpm (07/13/16 12:25 PM) 76 bpm (07/13/16 9:39 AM) 72 bpm (07/13/16 7:05 AM) Peripheral Pulse Rate [60-100 bpm] 65 kg (07/13/16 3:46 AM) Weight 23.13 m2 (07/13/16 3:46 AM) Body Mass Index Problem List Condition Effective [...] Lysis of Active adhesions(Confirmed) Malabsorption(Confir Resolved med) Spinal fusion Resolved failure(Confirmed) Migraine(Confirmed) Active Polycystic ovarian Resolved syndrome(Confirmed) Sinusitis(Confirmed) Active Lupus(Confirmed) Resolved 1CANCELLED Allergies, Adverse Reactions, Alerts Substance Reaction Severity Status Augmentin Active Paper Tape Active shellfish Active Medications Cipro 400 mg, Route: IVPB, ONCE, Dosing Weight 65, kg, Priority: STAT, Start date: 05/31 10:18:00 INVESTIGATOR NARCOTICS, Stop date: 07/13/16 10:18:00 INVESTIGATOR NARCOTICS Start Date: 07/13/16 Stop Date: 07/13/16 Status: Discontinued fentaNYL 50 microgram, 1 mL, Route: IVP, 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, ONCE, Dosing Weight 65, kg, Prio rity: STAT, Start date: 07/13/16 6:08:00 INVESTIGATOR NARCOTICS, Stop date: 07/13/16 6:08:00 INVESTIGATOR NARCOTICS Notes: (Same as: Sublimaze) Preservative free. Start Date: 07/13/16 Stop Date: 07/13/16 Status: Completed fentaNYL 50 microgram, Route: IVP, ONCE, Dosing Weight 65, kg, Priority: STAT, Start date : 07/13/16 7:59:00 INVESTIGATOR NARCOTICS, Stop date: 07/13/16 7:59:00 INVESTIGATOR NARCOTICS Start Date: 07/13/16 Stop Date: 07/13/16 Status: Completed fentaNYL 50 microgram, Route: IV, ONCE, Dosing Weight 65, kg, Start date: 07/13/16 11:16: 00 INVESTIGATOR NARCOTICS, Stop date: 07/13/16 11:16:00 INVESTIGATOR NARCOTICS Start Date: 07/13/16 Stop Date: 07/13/16 Status: Completed Flagyl 500 mg, Route: IVPB, ONCE, Dosing Weight 65, kg, Priority: STAT, Start date: 05/31 10:18:00 INVESTIGATOR NARCOTICS, Stop date: 07/13/16 10:18:00 INVESTIGATOR NARCOTICS Start Date: 07/13/16 Stop Date: 07/13/16 Status: Discontinued gabapentin 300 mg oral capsule 300 mg=1 cap, PO, TID, # 90 cap, 0 Refill(s) Start Date: 07/13/16 Status: Ordered morphine Sulfate 4 mg, Route: IVP, ONCE, Dosing Weight 65, kg, Priority: STAT, Start date: 5:28:00 INVESTIGATOR NARCOTICS, Stop date: 07/13/16 5:28:00 INVESTIGATOR NARCOTICS Start Date: 07/13/16 Stop Date: 07/13/16 Status: Completed [place] 5/325 oral tablet 1 tab, Route: PO, Drug Form: TAB, Dosing Weight 65, kg, ONCE, STAT, Start date: 07/13/16 9:51:00 INVESTIGATOR NARCOTICS, Stop date: 07/13/16 9:51:00 INVESTIGATOR NARCOTICS Start Date: 07/13/16 Stop Date: 07/13/16 Status: Completed [place] 5/325 oral tablet 1 tab, PO, Q4H, PRN for pain, X 5 day, # 24 tab, 0 Refill(s) Start Date: 07/13/16 Stop Date: 07/18/16 Status: Ordered NS (Bolus) IV 1,000 mL, 1,000 ml/hr, Infuse Over: 1 hr, Route: IV, 1,000, 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, ONCE , Priority: STAT, Dosing Weight 65 kg, Start date: 07/13/16 5:28:00 INVESTIGATOR NARCOTICS, Valery n: 1 doses or times, Stop date: 07/13/16 5:28:00 INVESTIGATOR NARCOTICS Start Date: 07/13/16 Stop Date: 07/13/16 Status: Completed Pentasa 500 mg oral capsule, extended release 500 mg=1 cap, PO, QID, # 120 cap, 0 Refill(s) Start Date: 07/13/16 Status: Ordered Phenergan 12.5 mg, Route: IVPB, ONCE, Dosing Weight 65, kg, PRN Nausea & Vomiting, Start date: 07/13/16 11:16:00 INVESTIGATOR NARCOTICS Start Date: 07/13/16 Stop Date: 07/13/16 Status: Completed Phenergan + sodium chloride 0.9% INJ 50 mL 12.5 mg, 0.5 mL, Route: IVPB, ONCE, Dosing Weight 65, kg, PRN Nausea & Vomiting, Start date: 07/13/16 11:25:00 INVESTIGATOR NARCOTICS Notes: Do not give IV push. (Same as: Phenergan) Start Date: 07/13/16 Stop Date: 07/14/16 Status: Discontinued Phenergan + sodium chloride 0.9% INJ 50 mL 12.5 mg, 0.5 mL, Route: IVPB, ONCE, Dosing Weight 65, kg, Priority: STAT, Start date: 07/13/16 6:07:00 INVESTIGATOR NARCOTICS, Stop date: 07/13/16 6:07:00 INVESTIGATOR NARCOTICS Notes: Do not give IV push. (Same as: Phenergan) Start Date: 07/13/16 Stop Date: 07/13/16 Status: Completed Zofran 4 mg, Route: IVP, 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, ONCE, Dosing Weight 65, kg, Priority: STAT, St art date: 07/13/16 5:28:00 INVESTIGATOR NARCOTICS, Stop date: 07/13/16 5:28:00 INVESTIGATOR NARCOTICS Start Date: 07/13/16 Stop Date: 07/13/16 Status: Completed Results ELECTROLYTES Most recent to 1 oldest [Reference Range]: Sodium Lvl [135-145 138 mEq/L mEq/L] (07/13/16 4:47 AM) Potassium Lvl 4.3 mEq/L [3.5-5.1 mEq/L] (07/13/16 4:47 AM) Chloride Lvl [95-109 103 mEq/L mEq/L] (07/13/16 4:47 AM) CO2 [24-32 mEq/L] 29 mEq/L (07/13/16 4:47 AM) AGAP [10.0-20.0 10.3 mEq/L mEq/L] (07/13/16 4:47 AM) CHEM PANEL Most recent to 1 oldest [Reference Range]: Creatinine Lvl 0.71 mg/dL [0.50-1.40 mg/dL] (07/13/16 4:47 AM) eGFR 107 mL/min/1.73m2 1 *NA* (07/13/16 4:47 AM) BUN [7-22 mg/dL] 16 mg/dL (07/13/16 4:47 AM) B/C Ratio [6-25] 23 (07/13/16 4:47 AM) Glucose Lvl [70-99 87 mg/dL mg/dL] (07/13/16 4:47 AM) Total Protein 6.7 g/dL [6.4-8.4 g/dL] (07/13/16 4:47 AM) Albumin Lvl [3.5-5.0 3.7 g/dL g/dL] (07/13/16 4:47 AM) Globulin [2.7-4.2 3.0 g/dL g/dL] (07/13/16 4:47 AM) A/G Ratio [0.7-1.6] 1.2 (07/13/16 4:47 AM) Calcium Lvl 8.6 mg/dL [8.5-10.5 mg/dL] (07/13/16 4:47 AM) ALT [0-65 unit/L] 64 unit/L (07/13/16 4:47 AM) AST [0-37 unit/L] 18 unit/L (07/13/16 4:47 AM) Alk Phos [39-136 86 unit/L unit/L] (07/13/16 4:47 AM) Bili Total [0.2-1.3 <0.1 mg/dL mg/dL] *LOW* (07/13/16 4:47 AM) Lipase Lvl [73-393 171 unit/L unit/L] (07/13/16 4:47 AM) 1Result Comment: The eGFR is calculated [...] mul tiplied by the estimated BMI. URINE CHEM Most recent to 1 oldest [Reference Range]: U Preg [Negative] Negative (07/13/16 4:47 AM) URINE AND STOOL Most recent to 1 oldest [Reference Range]: UA Turbidity [Clear] Clear (07/13/16 4:47 AM) UA Color [Yellow] Yellow *NA* (07/13/16 4:47 AM) UA pH [5.0-8.0] 5.0 (07/13/16 4:47 AM) UA Spec Grav 1.012 [<=1.030] (07/13/16 4:47 AM) UA Glucose [Negative Negative mg/dL mg/dL] *NA* (07/13/16 4:47 AM) UA Blood [Negative] Negative (07/13/16 4:47 AM) UA Ketones [Negative Negative mg/dL mg/dL] *NA* (07/13/16 4:47 AM) UA Protein [Negative Negative mg/dL mg/dL] (07/13/16 4:47 AM) UA Urobilinogen <=1.0 mg/dL [0.1-1.0 mg/dL] *NA* (07/13/16 4:47 AM) UA Bili [Negative] Negative *NA* (07/13/16 4:47 AM) UA Leuk Est Small [Negative] *ABN* (07/13/16 4:47 AM) UA Nitrite Negative [Negative] (07/13/16 4:47 AM) UA WBC [0-5 /HPF] 5 /HPF (07/13/16 4:47 AM) UA RBC [0-2 /HPF] 3 /HPF *HI* (07/13/16 4:47 AM) UA Sq Epi [Few /LPF] Occasional /LPF *NA* (07/13/16 4:47 AM) UA Hyal Cast [0-2 1 /LPF /LPF] (07/13/16 4:47 AM) IMMUNOLOGY Most recent to 1 oldest [Reference Range]: CRP [<=2.9 mg/L] <2.9 mg/L (07/13/16 5:12 AM) HEMATOLOGY Most recent to 1 oldest [Reference Range]: WBC [3.7-10.4 K/CMM] 6.0 K/CMM (07/13/16 5:09 AM) RBC [4.20-5.40 3.86 M/CMM M/CMM] *LOW* (07/13/16 5:09 AM) Hgb [12.0-16.0 g/dL] 11.9 g/dL *LOW* (07/13/16 5:09 AM) Hct [36.0-48.0 %] 35.7 % *LOW* (07/13/16 5:09 AM) MCV [80.0-98.0 fL] 92.3 fL (07/13/16 5:09 AM) MCH [27.0-31.0 pg] 30.8 pg (07/13/16 5:09 AM) MCHC [32.0-36.0 33.4 g/dL g/dL] (07/13/16 5:09 AM) RDW [11.5-14.5 %] 15.9 % *HI* (07/13/16 5:09 AM) Platelet [133-450 271 K/CMM K/CMM] (07/13/16 5:09 AM) MPV [7.4-10.4 fL] 9.1 fL (07/13/16 5:09 AM) Segs [45.0-75.0 %] 38.1 % *LOW* (07/13/16 5:09 AM) Lymphocytes 43.7 % [20.0-40.0 %] *HI* (07/13/16 5:09 AM) Monocytes [2.0-12.0 8.8 % %] (07/13/16 5:09 AM) Eosinophils [0.0-4.0 8.6 % %] *HI* (07/13/16 5:09 AM) Basophils [0.0-1.0 0.8 % %] (07/13/16 5:09 AM) Segs-Bands # 2.3 K/CMM [1.5-8.1 K/CMM] (07/13/16 5:09 AM) Lymphocytes # 2.6 K/CMM [1.0-5.5 K/CMM] (07/13/16 5:09 AM) Monocytes # [0.0-0.8 0.5 K/CMM K/CMM] (07/13/16 5:09 AM) Eosinophils # 0.5 K/CMM [0.0-0.5 K/CMM] (07/13/16 5:09 AM) Basophils # [0.0-0.2 0.1 K/CMM K/CMM] (07/13/16 5:09 AM) Sed Rate [0-20 8 mm/hr mm/hr] (07/13/16 5:12 AM) Immunizations Given and Recorded Vaccine Date Status [...] use: none. Previous treatment: None. Smoking Status Never smoker; Exposure to Tobacco Smoke None; Cigarette Smoking Last 365 Days No; Reg Smoking Cessation Counseling No Assessment and Plan No data available for this section
--- OUTSIDE RECORDS SUMMARY | 2018-09-18 17:16 | XMS REPORT | Summary of Care ---
Author Author [facility] Organization [facility] Address Unknown Phone Unavailable Encounter YOGI Andrea(MECHELLE) [id number] Date(s): 08/05/16 - 08/05/16 [facility] [address] [place] [address]- Discharge Diagnosis: Urticaria Discharge Disposition: Home or Self Care Attending Physician: Wei Liang DO Vital Signs Most recent to 1 2 oldest [Reference Range]: Height 170.18 cm (08/05/16 2:44 AM) Temperature Oral 96.8 DegF 97.5 DegF [96.4-99.1 DegF] (08/05/16 5:45 AM) (08/05/16 2:44 AM) Blood Pressure 106/67 mmHg 103/72 mmHg [90-140/60-90 mmHg] (08/05/16 5:45 AM) (08/05/16 2:44 AM) Respiratory Rate 16 BRMIN 20 BRMIN [14-20 BRMIN] (08/05/16 5:45 AM) (08/05/16 2:44 AM) Peripheral Pulse 66 bpm 108 bpm Rate [60-100 bpm] (08/05/16 5:45 AM) *HI* (08/05/16 2:44 AM) Weight 68.636 kg (08/05/16 2:44 AM) Body Mass Index 23.7 m2 (08/05/16 2:44 AM) Problem List Condition Effective Dates Status [...] Active Paper Tape Active shellfish Active Medications Atarax 25 mg oral tab 25 mg=1 tab, PO, QID, X 14 day, # 56 tab, 0 Refill(s) Start Date: 08/05/16 Stop Date: 08/19/16 Status: Ordered diphenhydrAMINE 50 mg, Route: IM, ONCE, Dosing Weight 68.636, kg, Priority: STAT, Start date: 3:06:00 CDT, Stop date: 08/05/16 3:06:00 CDT Start Date: 08/05/16 Stop Date: 08/05/16 Status: Completed EPINEPHrine 0.3 mg injectable kit 0.3 mg, IM, PRN, PRN allergic reaction or asthma, inject into leg for severe all ergic reaction, # 1 kit, 0 Refill(s) Start Date: 08/05/16 Status: Ordered famotidine 20 mg, Route: PO, ONCE, Dosing Weight 68.636, kg, Priority: STAT, Start date: 3:06:00 CDT, Stop date: 08/05/16 3:06:00 CDT Start Date: 08/05/16 Stop Date: 08/05/16 Status: Completed famotidine 20 mg oral tablet 20 mg=1 tab, PO, BID, # 28 tab, 0 Refill(s) Start Date: 08/05/16 Stop Date: 08/19/16 Status: Ordered methylPREDNISolone SODium SUCCinate 125 mg, Route: IM, ONCE, Dosing Weight 68.636, kg, Priority: STAT, Start date: 0 08/05/16 3:06:00 CDT, Stop date: 08/05/16 3:06:00 CDT Start Date: 08/05/16 Stop Date: 08/05/16 Status: Completed Phenergan 25 mg, Route: IM, ONCE, Dosing Weight 68.636, kg, Priority: STAT, Start date: 5:41:00 CDT, Stop date: 08/05/16 5:41:00 CDT Start Date: 08/05/16 Stop Date: 08/05/16 Status: Completed predniSONE 50 mg oral tablet 50 mg=1 tab, PO, Daily, X 5 day, # 5 tab, 0 Refill(s) Start Date: 08/05/16 Stop Date: 08/10/16 Status: Ordered Results No data available for this section Immunizations Given and Recorded Vaccine Date Status Refusal Reason Hx pneumococcal vaccine 12/29/10 Given influenza virus vaccine, inactivated 07/18/12 Given Procedures Procedure Date Related Diagnosis Body Site Biopsy of liver 2011 Abdominal hysterectomy Back fusion Cholecystectomy Foot joint operations Gastric bypass operation Hernia repair Hysterectomy Internal and external hemorrhoidectomy and anal fissurectomy [...]
[2018-09-18] MEDS ORDERED: ALBUTEROL SULF 0.083% NEB SOLN 3 ML NEB NEB STA (17:27)
[2018-09-18] MEDS ORDERED: IPRATROPIUM BROMIDE 0.02% 2.5 ML NEB NEB STA (17:27)
[2018-09-18] MEDS ORDERED: CEFTRIAXONE SOD 1 GM/NS 50 ML 50 ML IV STA (17:27)
[2018-09-18] MEDS ORDERED: DEXAMETHASONE SOD PHOS 10 MG/1 ML VIAL IM ONE (17:30)
[2018-09-18] MEDS ORDERED: ACETAMINOPHEN/CODEINE ELIX 120-12 MG/5 ML UDC PO ONE (17:30)
[2018-09-18 18:11] LABS: CLARITY,URINE CLEAR (CLEAR); COLOR,URINE YELLOW (YELLOW)
[2018-09-18 18:12] LABS: BILIRUBIN,URINE NEGATIVE (NEGATIVE); KETONES,URINE NEGATIVE (NEGATIVE); LEUKOCYTE ESTERASE ,URINE TRACE (NEGATIVE); NITRITE,URINE POSITIVE (NEGATIVE); PROTEIN,URINE DIPSTICK NEGATIVE (NEGATIVE); URINE UROBILINOGEN 0.2 mg/dL (0.2 - 1)
[2018-09-18 18:21] LABS: EPITHELIAL CELLS,URINE RARE /LPF; RBC,URINE 0-5 /HPF (0-5); TRANSITIONAL EPI CELLS,URINE FEW
--- NOTE | 2018-09-18 18:40 | Diagnostic Imaging Report ---
EXAMINATION: CHEST 2 VIEWS INDICATION: Shortness of breath. Coughing. Bronchitis. COMPARISON: 03/19/2016. FINDINGS: TUBES and LINES: None. LUNGS: Minimal bibasilar subsegmental atelectasis. There is no evidence of pneumonia or pulmonary edema. PLEURA: No pleural effusion or pneumothorax. HEART AND MEDIASTINUM: The cardiomediastinal silhouette is unremarkable. BONES AND SOFT TISSUES: No acute osseous lesion. Soft tissues are unremarkable. UPPER ABDOMEN: No free air under the diaphragm. IMPRESSION: No acute thoracic abnormality. Signed by: Dr. Eh Gonzalez M.D. on 09/18/2018 6:36 PM
[2018-09-18] MEDS ORDERED: SODIUM CHLORIDE 0.9% 500ML 500 ML IV STA (18:44)
[2018-09-18] MEDS ORDERED: ACETAMINOPHEN/CODEINE ELIX 120-12 MG/5 ML UDC PO NR (19:30)
[2018-09-18] MEDS ORDERED: ALBUTEROL SULF 0.083% NEB SOLN 3 ML NEB NEB NR (19:30)
[2018-09-18] MEDS ORDERED: DEXAMETHASONE SOD PHOS 10 MG/1 ML VIAL IM NR (19:30)
[2018-09-18] MEDS ORDERED: CEFTRIAXONE SOD 1 GM/NS 50 ML 50 ML IV NR (19:30)
[2018-09-18] MEDS ORDERED: IPRATROPIUM BROMIDE 0.02% 2.5 ML NEB NEB NR (19:30)
[2018-09-18] MEDS ORDERED: SODIUM CHLORIDE 0.9% 500ML 500 ML IV ONE ×2 (19:45→21:30)
[2018-09-18 20:45] LABS: BASOPHILS % 0.4 % (0.0-1.0); EOSINOPHILS # (AUTO) 0.4 (0.0-0.4); EOSINOPHILS % 4.4 % (0.0-6.0); HEMATOCRIT 32.3 % (34.2-44.1); HEMOGLOBIN 10.1 g/dL (12.0-16.0); LYMPHOCYTES # (AUTO) 1.1 (1.0-3.2); LYMPHOCYTES % 13.7 % (18.0-39.1); MEAN CORPUSCULAR HEMOGLOBIN 30.6 pg (28-32); MEAN CORPUSCULAR HGB CONC 31.3 g/dL (31-35); MEAN CORPUSCULAR VOLUME 97.9 fL (81-99); MONOCYTES # (AUTO) 0.3 (0.2-0.8); MONOCYTES % 3.4 % (4.4-11.3); NEUTROPHILS # (AUTO) 6.1 (2.1-6.9); NEUTROPHILS % 77.7 % (38.7-80.0); PLATELET COUNT 420 x10e3/uL (140-360); RED CELL DISTRIBUTION WIDTH 13.6 % (11.7-14.4)
[2018-09-18 21:02] LABS: INR 1.01; PROTHROMBIN TIME 13.8 seconds (11.9-14.5)
[2018-09-18 21:03] LABS: PARTIAL THROMBOPLASTIN TIME 34.6 seconds (23.8-35.5)
[2018-09-18 21:12] LABS: ALANINE AMINOTRANSFERASE 18 IU/L (0-55); ALBUMIN 3.2 g/dL (3.5-5.0); ALBUMIN/GLOBULIN RATIO 1.1 (0.8-2.0); ALKALINE PHOSPHATASE 116 IU/L (40-150); ANION GAP 12.7 mmol/L (8-16); BLOOD UREA NITROGEN 12 mg/dL (7-26); BUN/CREATININE RATIO 15 (6-25); CARBON DIOXIDE 27 mmol/L (22-29); CHLORIDE 103 mmol/L (98-107); CREATINE KINASE 90 IU/L (29-168); EST GLOMERULAR FILTRATION RATE > 60 ML/MIN (60-); GLUCOSE 89 mg/dL (74-118); POTASSIUM 3.7 mmol/L (3.5-5.1); SODIUM 139 mmol/L (136-145)
[2018-09-18 21:16] LABS: B-TYPE NATRIURETIC PEPTIDE2 24.2 pg/mL (0-100)
[2018-09-18 21:33] LABS: THYROID STIMULATING HORMONE 3.336 uIU/mL (0.350-4.940)
[2018-09-19 01:12] VITALS: BP 129/68
== END 2018-09-19 01:29 | disposition home or self-care (01) ==
LOC: ER 16:58
DX: R50.9 Fever, unspecified (principal); R05 Cough; J20.9 Acute bronchitis, unspecified
CPT/HCPCS: 36415; 71046; 80053; 81001; 82550; 82553; 83605; 83880; 84443; 84484; 85025; 85379; 85610; 85730; 87040; 87086; 93005; 99284; J0696; J1100; J7040

== ENCOUNTER 2019-07-25 16:32 | Emergency (ER) | payer BC ==
[~2019-07-25] VITALS: Ht 170.2 cm; Wt 97.7 kg
[2019-07-25] MEDS ORDERED: KETOROLAC TROMETHAMINE 30 MG/ML VIAL IM STA (16:57)
[2019-07-25] MEDS ORDERED: CYCLOBENZAPRINE HCL 10 MG TAB PO ONE (17:00)
--- NOTE | 2019-07-25 17:42 | Diagnostic Imaging Report ---
EXAMINATION: CXR 2 VIEW - HOPD INDICATION: Chest pain COMPARISON: None FINDINGS: LINES/TUBES:None LUNGS:The lungs are well-inflated. No focal consolidation or pulmonary edema. PLEURA:No pleural effusion or pneumothorax. MEDIASTINUM:The cardiomediastinal silhouette appears normal in size and shape. BONES/SOFT TISSUES:No acute osseous injury. ABDOMEN:No free air under the diaphragm. Status post cholecystectomy. IMPRESSION: No focal pneumonia or pulmonary edema. Signed by: Renetta Medina MD on 07/25/2019 5:39 PM
--- NOTE | 2019-07-25 17:43 | Diagnostic Imaging Report ---
EXAMINATION: SHOULDER 2+VW RT - HOPD INDICATION: Shoulder pain COMPARISON: None FINDINGS: No acute fracture or dislocation. Alignment appears anatomic. No substantial degenerative change. Partially visualized right lung appears clear. IMPRESSION: No acute osseous injury. Signed by: Renetta Medina MD on 07/25/2019 5:41 PM
[2019-07-25] MEDS ORDERED: CYCLOBENZAPRINE5 MG PO (17:52)
[2019-07-25 18:34] VITALS: BP 112/71
== END 2019-07-25 18:22 | disposition home or self-care (01) ==
LOC: FSED 16:32
DX: M25.511 Pain in right shoulder (principal); Z85.41 Personal history of malignant neoplasm of cervix uteri
CPT/HCPCS: 71046; 73030; 96372; 99283; J1885

== ENCOUNTER 2019-10-09 07:58 | Inpatient (IN) | payer BC, OTHER ==
[~2019-10-09] VITALS: Ht 170.2 cm; Wt 97.1 kg
--- OUTSIDE RECORDS SUMMARY | 2019-10-09 08:00 | XMS REPORT | Clinical Summary ---
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 07/12/2018 [id number] / / [id number] Pump Infsn Synchromed Ii W/ Fltr Neurosurgi Right: Abdome n, [employer] Sut Loop Prgrmbl Rsvr 20ml - bert Lower Quadrant N EUROMODUL [id number] Implants ATION Implanted: Qty: 1 on 02/15/2017 by Asad Ritchie MD at [facility] 12/12/2021 [id number] / / [id number] Passer Cath W/ Rmvbl Hndl And Ppe Neurosurgi Right: Abdom en, [employer] Obtrtr 38cm Strl - [id number] bert Lower Quadrant U SA - Implanted: Qty: 1 on 02/15/2017 by Implants MELINA Asad Larson MD at [facility] [place] 08/29/2020 [id number] / / [id number] Closure Wnd Tiss Rpr Sys - Surgical Right: Abdomen, AN ULEX [id number] Implants; Lower Quadrant TECHNOLOGI Implanted: Qty: 1 on 02/15/2017 by [employer]; [employer] Asad Ritchie MD at [facility] Extenders; Surgical Wires Results Not on fileafter 10/08/2018 Insurance Type Payer Benefit Subscriber ID Effective Phone Address Plan / Dates Group Exchange BCBS EXCHANGE BLUE xxxxxxxxxxxx 2016-P ADVANTAGE resent HMO EXCH [id number] Advance Directives For more information, please contact: [phone] 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
--- OUTSIDE RECORDS SUMMARY | 2019-10-09 08:00 | XMS REPORT | Clinical Summary ---
Author Author ANDRY [employer] 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 motion sickness Active citalopram (CELEXA) 40 MG Take 40 [...] Not on file Results Not on fileafter 10/08/2018 Insurance Payer Benefit Subscriber ID Type Phone Address Plan / Group BLUE CROSS/BLUE SHIELD BCBS ADV xxxxxxxxxxxx [phone] [address] [place] [address] EXCHANGE Advance Directives For more information, please contact: [facility] [address] [place] [address] Date Inactivated Comments Code Status [...]
--- OUTSIDE RECORDS SUMMARY | 2019-10-09 08:03 | XMS REPORT | Continuity of Care Document ---
Author Author [facility] Organization [facility] Address Unknown Phone Unavailable Care Team Providers Care [employer] Name Role Phone [employer]ple[employer] Information Terviu Unavailable Un available Problems Problem Status Onset Date Classification Date Reported Comments Source Urticaria, unspecified 08/05/2016 08/08/2016 [facility] ALLERGIC REACTION Active 08/05/2016 [facility] Unspecified abdominal pain 07/13/2016 07/16/2016 [facility] Pain in unspecified joint 07/13/2016 07/16/2016 [facility] FEVER Active 07/13/2016 [facility] DIVERTICULITIS Active 07/13/2016 [facility] ABD PAIN Active 04/29/2016 [facility] ABDOMINAL PAIN Active 04/29/2016 [facility] INTRACTABOLE ABDOMINAL PAIN Ac tive 04/11/2016 [facility] SIDE PAIN Active 04/11/2016 [facility] Discharge Diagnosis: Abdominal pain 04/06/2016 04/09/[address] [facility] [address] SCAN, DR SENT Active 04/05/2016 [facility] Discharge Diagnosis: Acute pyelonephritis 03/02/2016 03/05/2016 [facility] DOC SEND Active 03/02/2016 [facility] Discharge Diagnosis: Contusion of left u pper arm, initial encounter 03/20/2015 03/23/2015 [facility] ARM INJURY Active 03/20/2015 [facility] Discharge Diagnosis: Transaminitis 09/14/2014 10/03/2014 [facility] Discharge Diagnosis: Abdominal pain in female patient 09/14/2014 10/03/2014 [facility] INTRACTABLE NAUSEA AND VOMITING Active 09/13/2014 [facility] Discharge Diagnosis: Contusion of foot, left 02/09/2014 02/11/2014 [facility] Discharge Diagnosis: Pain in left foot 02/09/2014 02/11/2014 [facility] FOOT PAIN Active 02/09/2014 [facility] VOMITING,NAUSEA Active 12/10/2013 [facility] NAUSEA AND VOMITING Active 12/10/2013 [facility] Discharge Diagnosis: Headache 12/07/2013 12/09/[address] [facility] [address] SENT Active 12/06/2013 [facility] Discharge Diagnosis: Abdominal pain 09/13/2013 09/15/2013 [facility] Discharge Diagnosis: Elevated liver function tests 09/02/2013 09/12/2013 [facility] Discharge Diagnosis: Nausea and vomiting 09/02/2013 09/12/2013 [facility] Discharge Diagnosis: abdominal pain/elevated lft's 09/01/2013 09/03/2013 [facility] VOMITING Active 09/01/2013 [facility] INTRACTABLE VOMITING, ELEVATED LIVER ENZ Active 09/01/2013 [facility] VOMITING/ABD PAIN/SWELLING ABD Active 08/31/2013 [facility] BLOATING/GASTRIC PAIN/NAUSEA/PIPER/VOMITING Active 08/29/2013 [facility] SOB Active 0 06/05/2013 [facility] ASTHMATIC BRONCHITIS Active 06/05/2013 [facility] CHEST AND ARM COMPLAINTS Active 02/11/2013 [facility] OVERDOSE Active 10/19/2012 [facility] SEIZURES Active 09/27/2012 [facility] RENAL COLIC, ABDOMINAL PAIN, DEHYDRATION Active 08/06/2012 [facility] SEIZURE Active 07/17/2012 [facility] URINARY RETENTION Active 07/09/2012 [facility] BACK PAIN Active 07/07/2012 [facility] 789.00 - ABDMNAL PAIN UN Active 06/29/2012 [facility] FALL Active 05/31/2012 [facility] 719.45 - JOINT PAIN-PELV Active 03/06/2012 [facility] ALLERGIC REATION Active 01/24/2012 [facility] GI BLEED Active 12/31/2011 [facility] HEADACHE Active 12/31/2011 [facility] RECTAL BLEED, NO BOWEL MOVEMENT X 5DAYS Active 12/30/2011 [facility] SYNCOPE Active 10/14/2011 [facility] LOWER BACK PAIN Active 10/08/2011 [facility] SYNCOPE, ANEMIA, HYPERNATREMIA Active 10/08/2011 [facility] Abdominal pain Active Problem 02/14/2013 [facility] PID Shaun,[facility] Anxiety Active Problem 02/14/2013 [facility], MICHAEL Dunn, [facility] Cancer of cervix Active Problem 02/14/2013 [facility] PID Shaun,[facility] Depression Active Problem 02/14/2013 [facility], MICHAEL Dunn, [facility] Female genital organ symptoms Active Problem 07/2012 [facility], MICHAEL Dunn,[facility] Gastric bypass operation Active Problem 02/14/2013 [facility], Ruma Dunn,[facility] Laparoscopic procedure Active Problem 02/14/2013 [facility], O PID Shaun,[facility] Lumbar puncture headache Active Problem 10/18/2011 [facility] Lysis of adhesions Active Problem 02/14/2013 [facility], O PID Shaun,[facility] Migraine Active Problem 02/14/2013 [facility], MICHAEL Dunn, [facility] Sinusitis Active Problem 02/14/2013 [facility], MICHAEL Dunn, [facility] Ulcer Active Problem 02/14/2013 [facility], MICHAEL Dunn, [facility] Lumbar puncture headache Active Problem 02/14/2013 [facility], O PID Shaun,[facility] Kidney infection Resolved Problem 02/14/2013 [facility] [place] Malabsorption Resolved Problem 02/14/2013 [facility], [place] Cancer Resolved Problem 02/14/2013 1cervical [facility] Abdominal pain (finding) Active Problem 08/08/2016 [facility] [place] Anxiety (finding) Active Problem 08/08/2016 [facility] [place] bipolar(Confirmed) Resolved Problem 02/11/2014 [facility] [place] Malignant neoplasm, primary (morphologic abnormality) Resolved Problem 03/05/2016 cervical MICHAEL Lucas,[facility] Malignant tumor of cervix (disorder) Active Problem [facility] [place] Depressive disorder (disorder) Active Problem [facility] [place] Female genital organ symptoms (finding) Active Problem 08/08/2016 [facility] Esophagogastrostomy, antesternal or ante thoracic (procedure) Active Prob [place] 08/08/2016 [facility] high cholesterol(Confirmed) Re solved Problem [facility] [place] hx cerv cancer(Confirmed) Reso lved Problem [facility] [place] hx gastric bypass(Confirmed) R esolved Problem [facility] [place] [facility] hypoglycemia(Confirmed) Resolv ed Problem [facility] [place] Infectious disorder of kidney (disorder) Resolved Problem 08/08/2016 MICHAEL [place],[facility] Laparoscopic-assisted procedure (procedure) Active Problem 08/08/2016 [facility]HA[facility] D[place],[facility] Lumbar Fusion L3 S1(Confirmed) Resolved Problem [facility] [place] [place] lumbar fusion surgery(Confirmed) Resolved Problem [facility] [place] [place] Headache following lumbar puncture (disorder) Active Problem 08/08/2016 MICHAEL Denton,[facility] Lysis of adhesions (procedure) Active Problem [facility] [place] [place] Malabsorption syndrome (disorder) Resolved Problem [facility] [place] [place] Migraine (disorder) Active Problem 08/08/2016 [facility] [place] [place] Sinusitis (disorder) Active Problem 08/08/2016 [facility] [place] [place] Ulcer (morphologic abnormality) Active Problem [facility] [place] [place] Biopsy of liver (procedure) Ac tive Problem [facility] [place] [place] bipolar Resolved Problem 06/12/2013 [facility] high cholesterol Resolved Problem 06/12/2013 [facility] hx cerv cancer Resolved Problem 06/12/2013 [facility] hx gastric bypass Resolved Problem 06/12/2013 [facility] hypoglycemia Resolved Problem 06/12/2013 [facility] Lumbar Fusion L3 S1 Resolved Problem 06/12/2013 [facility] lumbar fusion surgery Resolved Problem 06/12/2013 [facility] Endometriosis (disorder) Active Problem 08/08/2016 [facility] Polycystic ovaries (disorder) Resolved Problem [facility] Carcinoma of cervix (disorder) Resolved Problem [facility] Crohn's disease (disorder) Res olved Problem [facility] History of bypass of stomach (situation) Resolved Problem 08/08/2016 [facility] Hypoglycemia (disorder) Resolv ed Problem [facility] Systemic lupus erythematosus (disorder) Resolved Problem 08/08/2016 [facility] Mechanical complication of internal orth opedic device, implant AND/OR graft (disorder) Resolved Problem 08/08/2016 [facility] SYNCOPE AND COLLAPSE Active [facility] ANEMIA NOS [facility] RETENTION OF URINE NOS [facility] ABDMNAL PAIN UNSPCF SITE Active [facility] BRONCHITIS NOS Active [facility] VOMITING ALONE Active [facility] NAUSEA WITH VOMITING Active [facility] UNSPECIFIED ABDOMINAL PAIN Act jose maria [facility] Medications Medication Details Route Status Patient Instructions Ordering Provider Order Date Source Phenergan 25 mg, Route: IM, ON CE, Dosing Weight 68.636, kg, Priority: STAT, Start date: 08/05/16 5:41:00 CDT, Stop date: 08/05/16 5:41:00 CDT Inactive 08/05/2016 [facility] 0.3 ML Epinephrine 1 MG/ML Prefilled Syringe 0.3 mg, IM, PRN, PRN allergic reaction or asthma, inject into leg for severe allergic reaction, # 1 kit, 0 Refill(s) Active 08/05/2016 [facility] Prednisone 50 MG Oral Tablet 5 0 mg = 1 tab, PO, Daily, X 5 day, # 5 tab, 0 Refill(s) Active 08/05/2016 [facility] Famotidine 20 MG Oral Tablet 2 0 mg = 1 tab, PO, BID, # 28 tab, 0 Refill(s) Active 08/05/2016 [facility] Hydroxyzine Hydrochloride 25 MG Oral Tablet 25 mg = 1 tab, PO, QID, X 14 day, # 56 tab, 0 Refill(s) Active 08/05/2016 [facility] Diphenhydramine 50 mg, Route: IM, ONCE, Dosing Weight 68.636, kg, Priority: STAT, Start date: 08/05/16 3:06:00 CDT, Stop date: 08/05/16 3:06:00 CDT Inactive 08/05/2016 [facility] Famotidine 20 mg, Route: PO, O NCE, Dosing Weight 68.636, kg, Priority: STAT, Start date: 08/05/16 3:06:00 CDT, Stop date: 08/05/16 3:06:00 CDT Inactive 08/05/2016 [facility] methylPREDNISolone SODium SUCCinate 125 mg, Route: IM, ONCE, Dosing Weight 68.636, kg, Priority: STAT, Start date: 08/05/16 3:06:00 CDT, Stop date: 08/05/16 3:06:00 CDT Inactive 08/05/2016 [facility] Phenergan Notes: Do not give I V push. (Same as: Phenergan) No Longer Active 07/13/2016 [facility] Phenergan 12.5 mg, Route: IVPB , ONCE, Dosing Weight 65, kg, PRN Nausea & Vomiting, Start date: 07/13/16 11:16:00 TAPE DECK INSTALLER Inactive 07/13/2016 [facility] Fentanyl 50 microgram, Route: IV, ONCE, Dosing Weight 65, kg, Start date: 07/13/16 11:16:00 TAPE DECK INSTALLER, Stop date: 07/13/16 11:16:00 TAPE DECK INSTALLER Inactive 07/13/2016 [facility] Acetaminophen 325 MG / Hydrocodone Faby trate 5 MG Oral Tablet [Republic 5/325] 1 tab, PO, Q4H, PRN for pain, X 5 day, # 24 tab, 0 Refill(s) Active 07/13/2016 [facility] Cipro 400 mg, Route: IVPB, ONC E, Dosing Weight 65, kg, Priority: STAT, Start date: 07/13/16 10:18:00 TAPE DECK INSTALLER, Stop date: 07/13/16 10:18:00 TAPE DECK INSTALLER Inactive 07/13/2016 [facility] Flagyl 500 mg, Route: IVPB, ON CE, Dosing Weight 65, kg, Priority: STAT, Start date: 07/13/16 10:18:00 TAPE DECK INSTALLER, Stop date: 07/13/16 10:18:00 TAPE DECK INSTALLER Inactive 07/13/2016 [facility] Acetaminophen 325 MG / Hydrocodone Faby trate 5 MG Oral Tablet [Republic 5/325] 1 tab, Route: PO, Drug Form: TAB, Dosing Weight 65, kg, ONCE, STAT, Start date: 07/13/16 9:51:00 TAPE DECK INSTALLER, Stop date: 07/13/16 9:51:00 TAPE DECK INSTALLER Inactive 07/13/2016 [facility] Fentanyl 50 microgram, Route: IVP, ONCE, Dosing Weight 65, kg, Priority: STAT, Start date: 07/13/16 7:59:00 TAPE DECK INSTALLER, Stop date: 07/13/16 7:59:00 TAPE DECK INSTALLER Inactive 07/13/2016 [facility] Fentanyl Notes: (Same as: Subl imaze) Preservative free. Inactive 07/13/2016 [facility] Phenergan Notes: Do not give I V push. (Same as: Phenergan) Inactive 07/13/2016 [facility] Zofran 4 mg, Route: IVP, 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, ONCE, Dosing Weight 65, kg, Priority: STAT, Start date: 07/13/16 5:28:00 TAPE DECK INSTALLER, Stop date: 07/13/16 5:28:00 TAPE DECK INSTALLER Inactive 07/13/2016 [facility] Morphine 4 mg, Route: IVP, ONC E, Dosing Weight 65, kg, Priority: STAT, Start date: 07/13/16 5:28:00 TAPE DECK INSTALLER, Stop date: 07/13/16 5:28:00 TAPE DECK INSTALLER Inactive 07/13/2016 [facility] Sodium Chloride 0.154 MEQ/ML Injectable Solution 1,000 mL, 1,000 ml/hr, Infuse Over: 1 hr, Route: IV, 1,000, 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, ONCE, Priority: STAT, Dosing Weight 65 kg, Start date: 07/13/16 5:28:00 TAPE DECK INSTALLER, Duration: 1 doses or times, Stop date: 07/13/16 5:28:00 TAPE DECK INSTALLER Inactive 07/13/2016 [facility] gabapentin 300 MG Oral Capsule 300 mg = 1 cap, PO, TID, # 90 cap, 0 Refill(s) Active 07/13/2016 [facility] mesalamine 500 MG Extended Release Capsule [Pentasa] 500 mg = 1 cap, PO, QID, # 120 cap, 0 Refill(s) Active 07/13/2016 [facility] Acetaminophen 300 MG / Codeine Phosphate 30 MG Oral Tablet [Tylenol with Codeine #3] 1 - 2 tab, PO, Q4H, PRN Pain, X 2 week, # 30 tab, 2 Refill(s) Active 05/10/2016 [facility] Enoxaparin Notes: (Same as: Lo venox) No Longer Active 05/10/2016 [facility] Hydromorphone 0.5 mg, 0.5 mL, Route: IVP, 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, Q5Min, Dosing Weight 68.835, kg, PRN Pain Score 7-10, Start date: 05/09/16 10:00:00 TAPE DECK INSTALLER, Duration: 4 doses or times, Stop date: Limited # of times Inactive 05/09/2016 [facility] Morphine Notes: (Same as:MORPh ine Sulfate) Inactive 05/09/2016 [facility] Naloxone Notes: Same as Narcan Inactive 05/09/2016 [facility] Flumazenil Notes: (Same as: Ro mazicon) Inactive 05/09/2016 [facility] Fentanyl Notes: (Same as: Subl imaze) Preservative free. Inactive 05/09/2016 [facility] Diphenhydramine Notes: (Same a s: Benadryl) Inactive 05/09/2016 [facility] Labetalol Notes: (Same as: Pavel modyne, Trandate) Push over 2 minutes Give bolus over 2-3 minutes. Inactive 05/09/2016 [facility] Acetaminophen Notes: Infuse ov er 15 minutes Do not exceed 4gm/day of acetaminophen MEDICATION WASTE Product Size: 1000 mg Product Wasted: ___ mg Inactive 05/09/2016 [facility] Metoprolol Notes: (Same as: Lo pressor) Push over 2 minutes Inactive 05/09/2016 [facility] Ketorolac 4 days MEDICA TION WASTE Product Size: 30 mg Product Wasted: ___ mg Inactive 05/09/2016 [facility] Ondansetron Notes: (Same as: Manoj parnell) MEDICATION WASTE Product Size: 4 mg Product Wasted: ___ mg Inactive 05/09/2016 [facility] Meperidine Notes: (Same As: De merol) Inactive 05/09/2016 [facility] Hydralazine Notes: (Same as: A presoline) Push over 5 minutes Inactive 05/09/2016 [facility] ondansetron (ANES) Route: IV, 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, ONCE, Stop date: 05/09/16 9:34:00 TAPE DECK INSTALLER Inactive 05/09/2016 [facility] sugammadex (ANES) Route: IV, D rug form: SOLN, ONCE, Stop date: 05/09/16 9:34:00 TAPE DECK INSTALLER Inactive 05/09/2016 [facility] phenylephrine (ANES) Route: IV , 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, ONCE, Stop date: 05/09/16 9:34:00 TAPE DECK INSTALLER Inactive 05/09/2016 [facility] famotidine (ANES) Route: IV, D rug form: INJ, ONCE, Stop date: 05/09/16 9:22:00 TAPE DECK INSTALLER Inactive 05/09/2016 [facility] scopolamine (ANES) Route: Galvez sdermal, Drug form: ERFILM, ONCE, Stop date: 05/09/16 9:22:00 TAPE DECK INSTALLER Inactive 05/09/2016 [facility] dexamethasone (ANES) Route: IV , 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, ONCE, Stop date: 05/09/16 9:12:00 TAPE DECK INSTALLER Inactive 05/09/2016 [facility] rocuronium (ANES) Route: IV, D rug form: INJ, ONCE, Stop date: 05/09/16 9:12:00 TAPE DECK INSTALLER Inactive 05/09/2016 [facility] propofol (ANES) Route: IV, David g form: INJ, ONCE, Stop date: 05/09/16 9:12:00 TAPE DECK INSTALLER Inactive 05/09/2016 [facility] fentaNYL (ANES) Route: IV, David g form: INJ, ONCE, Stop date: 05/09/16 9:12:00 TAPE DECK INSTALLER Inactive 05/09/2016 [facility] lidocaine (ANES) Route: IV, Dr ug form: INJ, ONCE, Stop date: 05/09/16 9:12:00 TAPE DECK INSTALLER Inactive 05/09/2016 [facility] midazolam (ANES) Route: IV, Dr ug form: SOLN, ONCE, Stop date: 05/09/16 9:07:00 TAPE DECK INSTALLER Inactive 05/09/2016 [facility] ceFAZolin (ANES) (ANES) Route: IV, 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, Start date: 05/09/16 8:22:00 TAPE DECK INSTALLER, Stop date: 05/09/16 9:22:00 TAPE DECK INSTALLER Inactive 05/09/2016 [facility] LR 1000 mL INJ (ANES) Route: I V, Total Volume: 1,000, Start date: 05/09/16 8:21:00 TAPE DECK INSTALLER, Stop date: 05/09/16 9:21:00 TAPE DECK INSTALLER Inactive 05/09/2016 [facility] D5W 1,000 mL 1,000 mL, Rate: 4 0 ml/hr, Infuse over: 25 hr, Route: IV, Dosing Weight 68.835 kg, Total Volume: 1,000, Start date: 05/08/16 10:53:00 TAPE DECK INSTALLER, Duration: 30 day, Stop date: 06/07/16 10:52:00 TAPE DECK INSTALLER No Longer Active 05/08/2016 [facility] Relistor Notes: Same as: Relis tor Restricted to Palliative Care No Longer Active 05/07/2016 [facility] Miralax Notes: Dissolve in 8 o z of water or juice. (Same as: Miralax) No Longer Active 05/07/2016 [facility] Dilaudid 1 mg, 1 mL, Route: IV P, 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, Q6H, Dosing Weight 68.835, kg, PRN Pain Score 7-10, Start date: 05/06/16 17:35:00 TAPE DECK INSTALLER, Duration: 30 day, Stop date: 06/05/16 17:34:00 TAPE DECK INSTALLER No Longer Active 05/06/2016 [facility] Dilaudid 1 mg, 1 mL, Route: IV P, 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, Q4H, Dosing Weight 68.835, kg, PRN Pain Score 7-10, Start date: 05/06/16 12:47:00 TAPE DECK INSTALLER, Duration: 30 day, Stop date: 06/05/16 12:46:00 TAPE DECK INSTALLER Inactive 05/06/2016 [facility] Hydromorphone 1 mg, 1 mL, Rout e: IV, 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, Q2H, Dosing Weight 66.364, kg, PRN Pain Score 4-6, Start date: 05/04/16 14:30:00 TAPE DECK INSTALLER, Duration: 30 day, Stop date: 06/03/16 14:29:00 TAPE DECK INSTALLER No Longer Active 05/04/2016 [facility] Mesalamine (Pentasa) 500 mg capsule Mesalamine (Pentasa) 500 mg capsule, 1,000 mg, 2 cap, Drug form: MISC, Route: PO, TID, 05/04/16 13:00:00 TAPE DECK INSTALLER, Duration: 30 day, Stop date: 06/03/16 9:00:00 TAPE DECK INSTALLER No Longer Active 05/04/2016 [facility] Propranolol Notes: Give with f ood. (Same as: Inderal) No Longer Active 05/03/2016 [facility] Citrate of Magnesia Notes: (Sa me as: Citrate of Magnesia) Concentration: 1.745 gm / 30 mL Inactive 05/01/2016 [facility] zolpidem Notes: (Same As: Ambi en) No Longer Active 05/01/2016 [facility] Mirtazapine Notes: (Same as:Re kenna) No Longer Active 05/01/2016 [facility] SENOKOT-S Notes: (Same as Gerri ruggierot-S) Equiv. to Marlene- Colace. No Longer Active 05/01/2016 [facility] pt own buprenorphine (Belbuca) pt own buprenorphine (Belbuca), 150 microgram, Drug form: MISC, Route: BUC, TID, PRN Pain Score 4-6, 04/30/16 20:11:00 TAPE DECK INSTALLER, Duration: 30 day, Stop date: 05/30/16 20:10:00 TAPE DECK INSTALLER No Longer Active 05/01/2016 [facility] Propranolol Notes: Take with f ood. Do not crush or chew. (Same as: Inderal LA) N o Longer Active 04/30/2016 [facility] gabapentin 100 MG Oral Capsule Notes: (Same as: Neurontin) No Longer Active 04/30/2016 [facility] Diazepam Notes: (Same as: Sanchez um) No Longer Active 04/30/2016 [facility] Atropine 0.5 mg, 5 mL, Route: IVP, 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, ONCE, Dosing Weight 66.364, kg, PRN Bradycardia, Start date: 04/30/16 14:50:00 TAPE DECK INSTALLER No Longer Active 04/30/2016 [facility] Nitroglycerin 0.4 MG Sublingual Tablet Notes: (Same as:Nitroquick, Nitrostat) "Do Not Crush" Sublingual tablet No Longer Active 04/30/2016 [facility] Chlordiazepoxide Hydrochloride 5 MG / Cl idinium bromide 2.5 MG Oral Capsule Notes: (Same As: Librax) No Longer Active 04/30/2016 [facility] Citrate of Magnesia Notes: (Sa me as: Citrate of Magnesia) Concentration: 1.745 gm / 30 mL Inactive 04/30/2016 [facility] Macrobid Notes: Not recommende d for patients with CrCl<50 ml/min (Same as:Macrobid) With food. No Longer Active 04/30/2016 [facility] Multivitamins with Folic Acid 0 .8 mg oral tablet 1 tab, Route: PO, Drug Form: TAB, Dosing Weight 66.364, kg, Daily, Start date: 04/30/16 9:00:00 TAPE DECK INSTALLER, Duration: 30 day, Stop date: 05/29/16 9:00:00 TAPE DECK INSTALLER No Longer Active 04/30/2016 [facility] Pentasa 500 mg, Route: PO, TID , Dosing Weight 66.364, kg, Start date: 04/30/16 9:00:00 TAPE DECK INSTALLER, Duration: 30 day, Stop date: 05/29/16 17:00:00 TAPE DECK INSTALLER Inactive 04/30/2016 [facility] Folic Acid Notes: (Same as: Fo lvite) No Longer Active 04/30/2016 [facility] Fentanyl 1 patch, Route: TOP, Drug form: ERFILM, Q72H, Dosing Weight 66.364, kg, Start date: 04/30/16 9:00:00 TAPE DECK INSTALLER, Duration: 30 day, Stop date: 05/27/16 9:00:00 TAPE DECK INSTALLER No Longer Active 04/30/2016 [facility] Diazepam 10 mg, Route: PO, David g form: TAB, TID, Dosing Weight 66.364, kg, Start date: 04/30/16 9:00:00 TAPE DECK INSTALLER, Duration: 30 day, Stop date: 05/29/16 17:00:00 TAPE DECK INSTALLER Inactive 04/30/2016 [facility] Citalopram 40 mg, 4 tab, Route : PO, Drug form: TAB, Daily, Dosing Weight 66.364, kg, Start date: 04/30/16 9:00:00 TAPE DECK INSTALLER, Duration: 30 day, Stop date: 05/29/16 9:00:00 TAPE DECK INSTALLER No Longer Active 04/30/2016 [facility] Please bring Pt's Own Buprenorphine to p harmacy for label Please bring Pt's Own Buprenorphine to p harmacy for label, Reminder, Drug form: MISC, Route: MISC, Q12H, 04/30/16 9:00:00 TAPE DECK INSTALLER, Duration: 30 day, Stop date: 05/29/16 21:00:00 TAPE DECK INSTALLER Inactive 04/30/2016 [facility] XIFAXAN Notes: Same as: Xifaxan No Longer Active 04/30/2016 [facility] pantoprazole Notes: Tablet lolis uld not be chewed or crushed. (Same as: Protonix) N o Longer Active 04/30/2016 [facility] Prednisone 1 MG Oral Tablet No kwabena: (Same as: PredniSONE) Take with food. No Longer Active 04/30/2016 [facility] Ondansetron Notes: (Same as: Z ofran) No Longer Active 04/30/2016 [facility] Temazepam Notes: (Same As: Res toril) No Longer Active 04/30/2016 [facility] 72 HR Scopolamine 0.0139 MG/HR Transdermal Patch Notes: Change patch every 72 hours (Same as: Transderm-Scop) No Longer Active 04/30/2016 [facility] Dicyclomine Notes: (Same as: B entyl) No Longer Active 04/30/2016 [facility] Buprenorphine 150 microgram, R oute: BUC, Drug form: FILM, TID, Dosing Weight 66.364, kg, PRN Pain Score 1-3, Start date: 04/30/16 8:27:00 TAPE DECK INSTALLER, Duration: 30 day, Stop date: 05/30/16 8:26:00 TAPE DECK INSTALLER Inactive 04/30/2016 [facility] Promethazine Notes: (Same as: Phenergan) No Longer Active 04/30/2016 [facility] D5NS 1,000 mL 1,000 mL, Rate: 100 ml/hr, Infuse over: 10 hr, Route: IV, Dosing Weight 66.364 kg, Total Volume: 1,000, Start date: 04/30/16 7:08:00 TAPE DECK INSTALLER, Duration: 30 day, Stop date: 05/30/16 7:07:00 TAPE DECK INSTALLER No Longer Active 04/30/2016 [facility] Hydromorphone 1.25 mg, 1.25 mL , Route: IV, 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, Q4H, Dosing Weight 66.364, kg, PRN Pain Score 6-10, Start date: 04/30/16 7:07:00 TAPE DECK INSTALLER, Stop date: 05/30/16 7:06:00 TAPE DECK INSTALLER No Longer Active 04/30/2016 [facility] nitrofurantoin 100 mg, PO, BID , # 14 cap, 0 Refill(s) No Longer Active 04/30/2016 [facility] Pentasa 500 mg, PO, TID, 0 Ref ill(s) Inactive 04/30/2016 [facility] SENOKOT-S 2 tab, PO, Bedtime, 0 Refill(s) Active 04/30/2016 [facility] Classic 1 tab, PO, Da osiris, 0 Refill(s) Active 04/30/2016 [facility] diazepam 10 mg oral tablet 10 mg = 1 tab, PO, TID, 0 Refill(s) Active 04/30/2016 [facility] rifaximin 550 MG Oral Tablet [XIFAXAN] 550 mg = 1 tab, PO, BID, 0 Refill(s) Active 04/30/2016 [facility] ondansetron 8 mg oral tablet 8 mg = 1 tab, PO, TID, 0 Refill(s) Active 04/30/2016 [facility] mirtazapine 7.5 mg oral tablet 7.5 mg = 1 tab, PO, Bedtime, 0 Refill(s) Active 04/30/2016 [facility] Sodium Chloride 0.154 MEQ/ML Injectable Solution 1,000 mL, Rate: 125 ml/hr, Infuse over: 8 hr, Route: IV, Dosing Weight 65.455 kg, Total Volume: 1,000, Start date: 04/30/16 5:55:00 TAPE DECK INSTALLER, Duration: 30 day, Stop date: 05/30/16 5:54:00 TAPE DECK INSTALLER Inactive 04/30/2016 [facility] Saline Flush 0.9% Notes: (Same as: BD Posiflush) No Longer Active 04/30/2016 [facility] Acetaminophen Notes: Do not ex ceed 4 gm/day. 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, Stop date: 04/30/16 5:01:00 TAPE DECK INSTALLER Inactive 04/30/2016 [facility] Ondansetron 4 mg, Route: IVP, 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, ONCE, Dosing Weight 65.455, kg, Priority: STAT, Start date: 04/30/16 5:01:00 TAPE DECK INSTALLER, Stop date: 04/30/16 5:01:00 TAPE DECK INSTALLER Inactive 04/30/2016 [facility] Hydromorphone 1 mg, Route: IVP , ONCE, Dosing Weight 65.455, kg, Priority: STAT, Start date: 04/30/16 0:06:00 TAPE DECK INSTALLER, Stop date: 04/30/16 0:06:00 TAPE DECK INSTALLER Inactive 04/30/2016 [facility] Sodium Chloride 0.154 MEQ/ML Injectable Solution 1,000 mL, 2,000 ml/hr, Infuse Over: 30 minutes, Route: IV, 1,000, 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, ONCE, Priority: STAT, Dosing Weight 65.455 kg, Start date: 04/29/16 19:47:00 TAPE DECK INSTALLER, Duration: 1 doses or times, Stop date: 04/29/16 19:47:00 TAPE DECK INSTALLER Inactive 04/30/2016 [facility] Ondansetron Notes: (Same as: Manoj parnell) MEDICATION WASTE Product Size: 4 mg Product Wasted: ___ mg Inactive 04/30/2016 [facility] Protonix Notes: Tablet should not be chewed or crushed. (Same as: Protonix) No Longer Active 04/13/2016 [facility] Pentasa 1,000 mg, 4 cap, Route : PO, Drug form: ERCAP, QID, Dosing Weight 64.091, kg, Start date: 04/12/16 17:00:00 TAPE DECK INSTALLER, Duration: 30 day, Stop date: 05/12/16 13:00:00 TAPE DECK INSTALLER Inactive 04/12/2016 [facility] fentaNYL 25 mcg/hr transdermal film, extended release 1 patch, TOP, Q72H, 0 Refill(s) Active 04/12/2016 [facility] tizanidine 4 mg oral tablet 4 mg, PO, BID, 0 Refill(s) Active 04/12/2016 [facility] propranolol 80 mg oral capsule, extended release 80 mg = 1 cap, PO, Daily, # 30 cap, 0 Refill(s) Active 04/12/2016 [facility] promethazine 50 mg oral tablet 50 mg = 1 tab, PO, Q6H, PRN Nausea & Vomiting, # 40 tab, 0 Refill(s) Active 04/12/2016 [facility] citalopram 40 mg oral tablet 4 0 mg = 1 tab, PO, Daily, # 30 tab, 0 Refill(s) Active 04/12/2016 [facility] Folic Acid 2 mg, PO, Daily, 0 Refill(s) Active 04/12/2016 [facility] dicyclomine 10 mg oral capsule 20 mg = 2 cap, PO, TID, PRN Spasm, 0 Refill(s) Active 04/12/2016 [facility] predniSONE 10 mg oral tablet S ee Special Instructions, PO, Daily, 12 day regimen: 2 weeks - 30 mg (3 tabs) daily 2 weeks - 20 mg (2 tabs) daily 2 weeks- 1.5tabs daily 2 weeks - 10 mg (1 tab) daily 2 weeks - 1/2 tab daily, # 24 tab, 0 Refill(s) Active 04/12/2016 [facility] temazepam 30 mg oral capsule 3 0 mg = 1 cap, PO, Bedtime, PRN Sleep, # 14 cap, 0 Refill(s) Active 04/12/2016 [facility] gabapentin 100 MG Oral Capsule 100 mg = 1 cap, PO, TID, # 90 cap, 1 Refill(s) Active 04/12/2016 [facility] pantoprazole 40 mg oral enteric coated tablet 40 mg = 1 tab, PO, BID, 0 Refill(s) Active 04/12/2016 [facility] Vitamin B 12 1,000 microgram, IM, q 2 weeks, 0 Refill(s) Active 04/12/2016 [facility] 72 HR Scopolamine 0.0139 MG/HR Transdermal Patch 1.5 mg = 1 patch, TOP, Q72H, PRN Other-See Comments, # 4 ea, 0 Refill(s) Active 04/12/2016 [facility] mesalamine 500 MG Extended Release Capsule [Pentasa] 1,000 mg = 2 cap, PO, TID, # 120 cap, 0 Refill(s) Active 04/12/2016 [facility] Buprenorphine 0.15 MG Buccal Film [Belbuca] 150 microgram = 1 ea, BUC, TID, PRN Pain Score 1-3, 0 Refill(s) Active 04/12/2016 [facility] diazepam 10 mg oral tablet 10 mg = 1 tab, PO, TID, 0 Refill(s) Active 04/12/2016 [facility] zolpidem 12.5 mg oral tablet, extended release 12.5 mg = 1 tab, PO, Bedtime, PRN for sleep, 0 Refill(s) Active 04/12/2016 [facility] Chlordiazepoxide Hydrochloride 5 MG / Cl idinium bromide 2.5 MG Oral Capsule 2 cap, PO, TID-Before Meals, 0 Refill(s) Active 04/12/2016 [facility] Dilaudid 0.5 mg, 0.5 mL, Route : IV, 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, Q4H, Dosing Weight 64.091, kg, PRN Pain Score 6-10, Priority: Routine, Start date: 04/12/16 5:12:00 TAPE DECK INSTALLER, Duration: 30 day, Stop date: 05/12/16 5:11:00 TAPE DECK INSTALLER Inactive 04/12/2016 [facility] Acetaminophen Notes: Do not ex ceed 4 gm/day. (Same as: Tylenol) Inactive 04/12/2016 [facility] Saline Flush 0.9% Notes: (Same as: BD Posiflush) Inactive 04/12/2016 [facility] D5W 1/2NS 1,000 mL 1,000 mL, R ate: 125 ml/hr, Infuse over: 8 hr, Route: IV, Dosing Weight 64.091 kg, Total Volume: 1,000, Start date: 04/12/16 5:12:00 TAPE DECK INSTALLER, Duration: 30 day, Stop date: 05/12/16 5:11:00 TAPE DECK INSTALLER Inactive 04/12/2016 [facility] D5W 1/2NS 1,000 mL 1,000 mL, R ate: 75 ml/hr, Infuse over: 13.3 hr, Route: IV, Dosing Weight 64.091 kg, Total Volume: 1,000, Start date: 04/12/16 5:01:00 TAPE DECK INSTALLER, Duration: 30 day, Stop date: 05/12/16 5:00:00 TAPE DECK INSTALLER Inactive 04/12/2016 [facility] Dilaudid 0.5 mg, Route: IVP, O NCE, Dosing Weight 64.091, kg, Priority: STAT, Start date: 04/12/16 5:00:00 TAPE DECK INSTALLER, Stop date: 04/12/16 5:00:00 TAPE DECK INSTALLER Inactive 04/12/2016 [facility] Dilaudid 0.5 mg, 0.5 mL, Route : IVP, 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, ONCE, Dosing Weight 64.091, kg, Priority: STAT, Start date: 04/12/16 0:24:00 TAPE DECK INSTALLER, Stop date: 04/12/16 0:24:00 TAPE DECK INSTALLER Inactive 04/12/2016 [facility] Phenergan Notes: Do not give I V push. (Same as: Phenergan) Inactive 04/12/2016 [facility] Saline Flush 0.9% Notes: (Same as: BD Posiflush) No Longer Active 04/12/2016 [facility] Acetaminophen 325 MG / Hydrocodone Faby trate 5 MG Oral Tablet [Republic 5/325] 100.4 F, X 5 day, # 16 tab, 0 Refill(s) Active 04/06/2016 [facility] Dilaudid 1 mg, Route: IV, ONCE , Dosing Weight 64.091, kg, Start date: 04/06/16 2:07:00 TAPE DECK INSTALLER, Stop date: 04/06/16 2:07:00 TAPE DECK INSTALLER Inactive 04/06/2016 [facility] Promethazine Notes: Do not giv e IV push. (Same as: Phenergan) Inactive 04/06/2016 [facility] Dilaudid 1 mg, Route: IV, ONCE , Dosing Weight 64.091, kg, Start date: 04/05/16 21:58:00 TAPE DECK INSTALLER, Stop date: 04/05/16 21:58:00 TAPE DECK INSTALLER Inactive 04/06/2016 [facility] Ondansetron Notes: (Same as: Manoj parnell ODT) Inactive 04/06/2016 [facility] sodium chloride 0.9% 1000 ml INJ 1,000 m L + folic acid 1 mg + Vitamin B1 500 mg + multivitamin 10 m 1,000 mL, Rate: 100 ml/hr, Infuse over: 10.2 hr, Route: IV, Dosing Weight 64.091 kg, Total Volume: 1,015.2, Start date: 04/05/16 18:54:00 TAPE DECK INSTALLER, Duration: 1 doses or times, Stop date: 04/06/16 5:05:00 TAPE DECK INSTALLER Inactive 04/06/2016 [facility] Sodium Chloride 0.154 MEQ/ML Injectable Solution 1,000 mL, Rate: 100 ml/hr, Infuse over: 10 hr, Route: IV, Dosing Weight 64.091 kg, Total Volume: 1,000, thiamine 500mg total, Start date: 04/05/16 18:15:00 TAPE DECK INSTALLER, Duration: 1 doses or times, Stop date: 04/06/16 4:14:00 TAPE DECK INSTALLER Inactive 04/06/2016 [facility] Sodium Chloride 0.154 MEQ/ML Injectable Solution 1,000 mL, Rate: 100 ml/hr, Infuse over: 10 hr, Route: IV, Dosing Weight 64.091 kg, Total Volume: 1,000, Start date: 04/05/16 18:13:00 TAPE DECK INSTALLER, Duration: 1 doses or times, Stop date: 04/06/16 4:12:00 TAPE DECK INSTALLER Inactive 04/06/2016 [facility] Sodium Chloride 0.154 MEQ/ML Injectable Solution 1,000 mL, 2,000 ml/hr, Infuse Over: 30 minutes, Route: IV, 1,000, 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, ONCE, Priority: STAT, Dosing Weight 64.091 kg, Start date: 04/05/16 18:12:00 TAPE DECK INSTALLER, Duration: 1 doses or times, Stop date: 04/05/16 18:12:00 TAPE DECK INSTALLER Inactive 04/06/2016 [facility] Saline Flush 0.9% Notes: (Same as: BD Posiflush) No Longer Active 04/06/2016 [facility] Morphine 4 mg, Route: IVP, ONC E, Dosing Weight 61.818, kg, Priority: STAT, Start date: 03/02/16 22:39:00 CDT, Stop date: 03/02/16 22:39:00 CDT Inactive 03/03/2016 [facility] Acetaminophen 300 MG / Codeine Phosphate 30 MG Oral Tablet [Tylenol with Codeine #3] 1 tab, PO, Q6H, PRN Pain, X 5 day, # 20 tab, 0 Refill(s) Active 03/03/2016 [facility] Cephalexin 500 MG Oral Capsule [Keflex] 500 mg = 1 cap, PO, QID, X 7 day, # 28 cap, 0 Refill(s) Active 03/03/2016 [facility] Ceftriaxone Notes: (Same As: Deni potter). Use with 100 mL NS and infuse over 30 min MEDICATION WASTE Product Size: 1000 mg Product Wasted: ___ mg Inactive 03/03/2016 [facility] Promethazine 12.5 mg, Route: I VPB, ONCE, Dosing Weight 61.818, kg, Priority: STAT, Start date: 03/02/16 22:01:00 CDT, Stop date: 03/02/16 22:01:00 CDT Inactive 03/03/2016 [facility] Ondansetron 4 mg, Route: IVP, 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, ONCE, Dosing Weight 61.818, kg, Priority: STAT, Start date: 03/02/16 20:54:00 CDT, Stop date: 03/02/16 20:54:00 CDT Inactive 03/03/2016 [facility] Morphine 4 mg, Route: IVP, ONC E, Dosing Weight 61.818, kg, Priority: STAT, Start date: 03/02/16 20:54:00 CDT, Stop date: 03/02/16 20:54:00 CDT Inactive 03/03/2016 [facility] Saline Flush 0.9% Notes: (Same as: BD Posiflush) No Longer Active 03/03/2016 [facility] tramadol hydrochloride 50 MG Oral Tablet 50 mg = 1 tab, PO, BID, X 7 day, # 14 tab, 0 Refill(s) Active 03/21/2015 [facility] Morphine 4 mg, Route: IM, 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, ONCE, Dosing Weight 64.545, kg, Priority: STAT, Start date: 03/20/15 22:11:00, Stop date: 03/20/15 22:11:00 Inactive 03/21/2015 [facility] Ketorolac 4 days MEDICA TION WASTE Product Size: 30 mg Product Wasted: ___ mg No Longer Active 09/27/2014 [facility] Acetaminophen 325 MG / butalbital 50 MG / Caffeine 40 MG Oral Tablet [Esgic] Notes: (lnfzwbikmigjq-txemoksvpq-wtxfgig e 325-50-40mg) Do not exceed 4 gm/day of acetaminophen. (Same as: Esgic, Fioricet) No Longer Active 09/27/2014 [facility] Acetaminophen 300 MG / butalbital 50 MG / Caffeine 40 MG Oral Capsule [Fioricet] Notes: (wbexeehxaozyr-ambcerhqzr-ntpugmj e 325-50-40mg) Do not exceed 4 gm/day of acetaminophen. (Same as: Esgic, Fioricet) Inactive 09/26/2014 [facility] Promethazine Notes: (Same as: Phenergan) No Longer Active 09/26/2014 [facility] Promethazine Notes: (Same as: Phenergan) No Longer Active 09/26/2014 [facility] GI cocktail Notes: [place] = antacid with simethicone 22.5 mL - lidocaine viscous 7.5 mL No Longer Active 09/25/2014 [facility] Glucose 50 MG/ML / Sodium Chloride 0.076 9 MEQ/ML Injectable Solution 1,000 mL, Rate: 125 ml/hr, Infuse over: 8 hr, Route: IV, Dosing Weight 65.455 kg, Total Volume: 1,000, Start date: 09/21/14 0:34:00, Stop date: 10/21/14 0:33:00 No Longer Active 09/21/2014 [facility] d50 syringe 12.5 gm, 25 mL, Ro marita: IVP, Drug Form: INJ, Dosing Weight 65.455, kg, PRN, PRN Blood Glucose Results, Start date: 09/21/14 0:17:00, Duration: 30 day, Stop date: 10/21/14 0:16:00 No Longer Active 09/21/2014 [facility] Ondansetron Notes: (Same as: Manoj parnell) MEDICATION WASTE Product Size: 4 mg Product Wasted: ___ mg No Longer Active 09/19/2014 [facility] Phenergan Notes: (Same as: Phe nergan) No Longer Active 09/19/2014 [facility] Oxycodone Hydrochloride 5 MG Oral Tablet Notes: (Same as: Roxicodone) No Longer Active 09/19/2014 [facility] 72 HR Scopolamine 0.0139 MG/HR Transdermal Patch Notes: Change patch every 72 hours (Same as: Transderm-Scop) No Longer Active 09/18/2014 [facility] Nicotine 21 mg, 1 patch, Route : TOP, Drug form: ERFILM, Daily, Dosing Weight 65.455, kg, Start date: 09/17/14 12:00:00, Duration: 30 day, Stop date: 10/17/14 9:00:00 No Longer Active 09/17/2014 [facility] Sodium Chloride 0.154 MEQ/ML Injectable Solution 500 mL, Rate: 25 ml/hr, Infuse over: 20 hr, Route: IV, Dosing Weight 65.455 kg, Total Volume: 500, Start date: 09/16/14 12:22:00, Duration: 1 day, Stop date: 09/17/14 12:21:00 Inactive 09/16/2014 [facility] Protonix Notes: Tablet should not be chewed or crushed. (Same as: Protonix) No Longer Active 09/16/2014 [facility] Amitriptyline Notes: (Same as: Elavil) No Longer Active 09/15/2014 [facility] Dilaudid 1 mg, 1 mL, Route: IV , 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, Q4H, Dosing Weight 65.455, kg, PRN Pain Score 7-10, Start date: 09/15/14 10:53:00, Duration: 30 day, Stop date: 10/15/14 10:52:00 No Longer Active 09/15/2014 [facility] Celexa Notes: (Same As: CeleXA) No Longer Active 09/15/2014 [facility] Hydroxyzine Notes: (Same as: A tarax) Avoid alcohol. No Longer Active 09/15/2014 [facility] Diazepam Notes: (Same as: Sanchez um) No Longer Active 09/14/2014 [facility] Dilaudid 2 mg, 2 mL, Route: IV , 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, Q4H, Dosing Weight 65.455, kg, PRN Pain Score 7-10, Start date: 09/14/14 13:03:00, Stop date: 10/14/14 13:02:00 N o Longer Active 09/14/2014 [facility] Acetaminophen 325 MG / Hydrocodone Faby trate 10 MG Oral Tablet [Republic 10/325] Notes: Do not exceed 4gm/day of acetamin ophen. (Same as: Republic 325/10) No Longer Active 09/14/2014 [facility] zolpidem Notes: (Same As: Ambi en) No Longer Active 09/14/2014 [facility] Diphenhydramine Notes: (Same a s: Benadryl) Inactive 09/14/2014 [facility] Diazepam Notes: (Same as: Sanchez nolasco) Inactive 09/14/2014 [facility] Celexa Notes: (Same As: CeleXA) No Longer Active 09/14/2014 [facility] Saline Flush 0.9% Notes: prese rvative free. No Longer Active 09/14/2014 [facility] Sodium Chloride 0.154 MEQ/ML Injectable Solution 1,000 mL, Rate: 60 ml/hr, Infuse over: 16.7 hr, Route: IV, Dosing Weight 60 kg, Total Volume: 1,000, Start date: 09/14/14 2:59:00, Stop date: 10/14/14 2:58:00 No Longer Active 09/14/2014 [facility] Ondansetron Notes: (Same as: Manoj parnell) MEDICATION WASTE Product Size: 4 mg Product Wasted: ___ mg No Longer Active 09/14/2014 [facility] Morphine Notes: (Same as:MORPh ine Sulfate) Inactive 09/14/2014 [facility] Dilaudid 1 mg, 1 mL, Route: IV P, 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, Q6H, Dosing Weight 60, kg, PRN Pain Score 6-10, Priority: STAT, Start date: 09/14/14 2:34:00, Duration: 30 day, Stop date: 10/14/14 2:33:00 Inactive 09/14/2014 [facility] Morphine Notes: (Same as:MORPh ine Sulfate) Inactive 09/14/2014 [facility] Ambien Notes: (Same As: Ambien) Inactive 09/14/2014 [facility] Phenergan Notes: Do not give I V push. (Same as: Phenergan) No Longer Active 09/14/2014 [facility] Zofran Notes: (Same as: Zofran ) MEDICATION WASTE Product Size: 4 mg Product Wasted: ___ mg Inactive 09/14/2014 [facility] pantoprazole Notes: For IV pus h reconstitute with 10 ml 0.9% sodium chloride and push over 2 minutes. (Same as: Protonix) No Longer Active 09/14/2014 [facility] normal saline 0.9% IV 1,000 mL 1,000 mL, Rate: 75 ml/hr, Infuse over: 13.3 hr, Route: IV, Dosing Weight 60 kg, Total Volume: 1,000, Start date: 09/14/14 2:25:00, Duration: 30 day, Stop date: 10/14/14 2:24:00 Inactive 09/14/2014 [facility] Benadryl 12.5 mg, Route: IVP, ONCE, Dosing Weight 60, kg, Priority: STAT, Start date: 09/14/14 2:12:00, Stop date: 09/14/14 2:12:00 Inactive 09/14/2014 [facility] Reglan 10 mg, Route: IVP, 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, ONCE, Dosing Weight 60, kg, Priority: STAT, Start date: 09/14/14 1:31:00, Stop date: 09/14/14 1:31:00 Inactive 09/14/2014 [facility] Acetaminophen 325 MG / Hydrocodone Faby trate 10 MG Oral Tablet [Republic 10/325] 1-2 tab, PO, Q4-6H, PRN Pain, X 5 day, # 15 tab, 0 Refill(s) No Longer Active 09/14/2014 [facility] Promethazine Hydrochloride 25 MG Rectal Suppository [Phenergan] 25 mg = 1 supp, MN, Q6H, PRN Nausea & Vo miting, X 3 day, # 9 supp, 0 Refill(s) No Longer Active 09/14/2014 [facility] Promethazine Hydrochloride 25 MG Oral Ta blet [Phenergan] 25 mg = 1 tab, PO, Q6H, PRN Nausea, X 4 day, # 15 tab, 0 Refill(s) No Longer Active 09/14/2014 [facility] Acetaminophen 325 MG / Hydrocodone Faby trate 10 MG Oral Tablet [Republic 10/325] 1 tab, Route: PO, Drug Form: TAB, Dosing Weight 60, kg, ONCE, STAT, Start date: 09/14/14 0:58:00, Stop date: 09/14/14 0:58:00 Inactive 09/14/2014 [facility] Phenergan Notes: Do not give I V push. (Same as: Phenergan) No Longer Active 09/14/2014 [facility] Dilaudid 2 mg, 2 mL, Route: IV P, 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, ONCE, Dosing Weight 60, kg, Priority: STAT, Start date: 09/13/14 23:58:00, Stop date: 09/13/14 23:58:00 No Longer Active 09/14/2014 [facility] Phenergan 12.5 mg, Route: IVPB , ONCE, Dosing Weight 60, kg, Priority: STAT, Start date: 09/13/14 22:17:00, Stop date: 09/13/14 22:17:00 Inactive 09/14/2014 [facility] Sodium Chloride 0.154 MEQ/ML Injectable Solution 1,000 mL, Infuse Over: 1 hr, Route: IV, ONCE, Priority: STAT, Dosing Weight 60 kg, Start date: 09/13/14 22:17:00, Duration: 1 doses or times, Stop date: 09/13/14 22:17:00 Inactive 09/14/2014 [facility] Saline Flush 0.9% Notes: prese rvative free. No Longer Active 09/14/2014 [facility] Morphine 6 mg, Route: IVP, ONC E, Dosing Weight 60, kg, Priority: STAT, Start date: 09/13/14 22:17:00, Stop date: 09/13/14 22:17:00 Inactive 09/14/2014 [facility] Acetaminophen 325 MG / Hydrocodone Faby trate 5 MG Oral Tablet [Republic 5/325] 1-2 tab, PO, Q4-6H, Pain, # 12 tab, 0 Re fill(s) Active 02/09/2014 [facility] Acetaminophen 325 MG / Hydrocodone Faby trate 5 MG Oral Tablet [Republic 5/325] 1 tab, Route: PO, Dosing Weight 66.364, kg, ONCE, Start date: 02/09/14 10:08:00, Stop date: 02/09/14 10:08:00 Inactive 02/09/2014 [facility] Miralax Notes: Dissolve in 8 o z of water or juice. (Same as: Miralax) Inactive 2013 [facility] Promethazine Notes: Do not giv e IV push. (Same as: Phenergan) No Longer Active 12/16/2013 [facility] Depacon Notes: Dilute in at le ast 50ml D5W or NS. Infusion rate = 20 mg/min (Same As: Depacon) Inactive 12/13/2013 [facility] Dextrose 50% Syringe 25 gm, 50 mL, Route: IV, Drug Form: INJ, Dosing Weight 63.636, kg, PRN, PRN Blood Glucose Results, Start date: 12/12/13 12:48:00, Duration: 30 day, Stop date: 01/11/14 12:47:00 No Longer Active 12/12/2013 [facility] gabapentin Notes: (Same as: Ne urontin) No Longer Active 12/12/2013 [facility] Protonix Notes: Tablet should not be chewed or crushed. (Same as: Protonix) No Longer Active 12/11/2013 [facility] Dilaudid 0.8 mg, 0.8 mL, Route : IV, 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, Q6H, Dosing Weight 63.636, kg, PRN Severe Pain, Start date: 12/11/13 11:22:00, Stop date: 01/10/14 11:21:00 No Longer Active 12/11/2013 [facility] Ketorolac 4 days No Longer Active 12/11/2013 [facility] Phenergan Notes: Do not give I V push. (Same as: Phenergan) Inactive 12/11/2013 [facility] Dexamethasone 10 mg, 2.5 mL, R oute: IVPB, 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, ONCE, Dosing Weight 63.636, kg, Start date: 12/11/13 10:08:00, Stop date: 12/11/13 10:08:00 Inactive 12/11/2013 [facility] Miralax Notes: Dissolve in 8 o z of water or juice. (Same as: Miralax) No Longer Active 12/11/2013 [facility] Multiple Vitamins with Minerals oral tablet Notes: (Same as:Thera-M, Theragran-M) Give with food. No Longer Active 12/11/2013 [facility] Celexa Notes: (Same As: CeleXA) No Longer Active 12/11/2013 [facility] Diazepam Notes: (Same as: Sanchez um) No Longer Active 12/11/2013 [facility] zolpidem 10 mg, Route: PO, David g form: TAB, Bedtime, Dosing Weight 63.636, kg, PRN as needed for sleep, Start date: 12/11/13 5:46:00, Duration: 30 day, Stop date: 01/10/14 5:45:00 Inactive 12/11/2013 [facility] Hyoscyamine Notes: (Same as: L evsin) Take 30 min before meal No Longer Active 12/11/2013 [facility] Chlordiazepoxide Hydrochloride 25 MG Oral Capsule 25 mg, 1 cap, Route: PO, Drug form: CAP, QID, Dosing Weight 63.636, kg, PRN as needed for anxiety, Start date: 12/11/13 5:45:00, Duration: 30 day, Stop date: 01/10/14 5:44:00 No Longer Active 12/11/2013 [facility] Ambien Notes: (Same As: Ambien) No Longer Active 12/11/2013 [facility] Protonix Notes: For IV push re constitute with 10 ml 0.9% sodium chloride and push over 2 minutes. (Same as: Protonix) No Longer Active 12/10/2013 [facility] Promethazine Notes: Do not giv e IV push. (Same as: Phenergan) No Longer Active 12/10/2013 [facility] Dilaudid 0.5 mg, 0.5 mL, Route : IV, 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, Q3H, Dosing Weight 64.545, kg, PRN Pain, Start date: 12/10/13 11:33:00, Duration: 30 day, Stop date: 01/09/14 11:32:00 No Longer Active 12/10/2013 [facility] D5W 1/2NS + KCL 20mEq/L 1000ml (Premix) 1,000 mL Notes: PREMIX IV - Do Not Alter No Longer Active 12/10/2013 [facility] [facility] Saline Flush 0.9% Notes: Same as: BD Posiflush Sterile No Longer Active 12/10/2013 [facility] Docusate Notes: (Same as: Cola ce) (Do Not Crush) No Longer Active 12/10/2013 [facility] Acetaminophen Notes: Do not ex ceed 4 gm/day. (Same as: Tylenol) No Longer Active 12/10/2013 [facility] Haldol Notes: (Same as: Haldol) Inactive 12/07/2013 [facility] Lorazepam Notes: (Same as: Ati van) Inactive 12/07/2013 [facility] Valproic Acid 100 MG/ML Injectable Solution Notes: Dilute in at least 50ml D5W or NS. Infusion rate = 20 mg/min (Same As: Depacon) No Longer Active 12/07/2013 [facility] Metoclopramide Notes: (Same as : Reglan) No Longer Active 12/07/2013 [facility] Diphenhydramine Notes: (Same a s: Benadryl) No Longer Active 12/07/2013 [facility] Ketorolac 4 days No Longer Active 12/07/2013 [facility] Sodium Chloride 0.154 MEQ/ML Injectable Solution 1,000 mL, 1,000 ml/hr, Infuse Over: 1 hr, Route: IV, 1,000, 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, ONCE, Priority: STAT, Dosing Weight 64.545 kg, Start date: 12/06/13 23:43:00, Duration: 1 doses or times, Stop date: 12/06/13 23:43:00 No Longer Active 12/07/2013 [facility] pantoprazole Notes: Tablet lolis uld not be chewed or crushed. (Same as: Protonix) Inactive 09/24/2013 [facility] promethazine 25 mg rectal suppository 25 mg = 1 supp, MN, Q4H, Nausea & Vomiting, # 10 supp, 0 Refill(s) Active 09/24/2013 [facility] Acetaminophen 325 MG / Hydrocodone Faby trate 10 MG Oral Tablet [Republic 10/325] 1 tab, PO, Q4H, for pain, # 50 tab, 0 Re fill(s) Active 09/24/2013 [facility] Zantac 300 300 mg, Route: PO, Drug form: TAB, Bedtime, Dosing Weight 65.455, kg, Start date: 09/23/13 21:00:00, Duration: 30 day, Stop date: 10/22/13 21:00:00 Inactive 09/24/2013 [facility] Pepcid Notes: (Same as: Pepcid) No Longer Active 09/24/2013 [facility] Ativan Notes: (Same as: Ativan) No Longer Active 09/24/2013 [facility] Phenergan Notes: (Same as: Phe nergan) No Longer Active 09/23/2013 [facility] Acetaminophen 325 MG / Hydrocodone Faby trate 5 MG Oral Tablet [Republic 5/325] Notes: (Same as: Republic 325/5) Do not ex ceed 4gm/day of acetaminophen. No Longer Activ e 09/23/2013 [facility] magnesium citrate Notes: (Same as: Citrate of Magnesia) Inactive 09/21/2013 [facility] pantoprazole Notes: Tablet lolis uld not be chewed or crushed. (Same as: Protonix) N o Longer Active 09/21/2013 [facility] Ativan Notes: (Same as: Ativan) No Longer Active 09/21/2013 [facility] Dextrose 50% Syringe 25 gm, 50 mL, Route: IV, Drug Form: INJ, Dosing Weight 65.455, kg, PRN, PRN Blood Glucose Results, Start date: 09/20/13 13:48:00, Duration: 30 day, Stop date: 10/20/13 13:47:00, blood sugar <50 No Longer Active 09/20/2013 [facility] Phenergan Notes: Do not give I V push. (Same as: Phenergan) No Longer Active 09/20/2013 [facility] Miralax Notes: Dissolve in 8 o z of water or juice. (Same as: Miralax) No Longer Active 09/19/2013 [facility] Phenergan Notes: (Same as: Phe nergan) No Longer Active 09/19/2013 [facility] Protonix Notes: For IV push re constitute with 10 ml 0.9% sodium chloride and push over 2 minutes. (Same as: Protonix) No Longer Active 09/19/2013 [facility] Celexa Notes: (Same As: CeleXA) No Longer Active 09/19/2013 [facility] Phenergan Notes: Do not give I V push. (Same as: Phenergan) No Longer Active 09/19/2013 [facility] Phenergan Notes: Do not give I V push. (Same as: Phenergan) No Longer Active 09/19/2013 [facility] Chlordiazepoxide Hydrochloride 25 MG Oral Capsule 25 mg, 1 cap, Route: PO, Drug form: CAP, QID, Dosing Weight 65.455, kg, Start date: 09/18/13 21:00:00, Duration: 30 day, Stop date: 10/18/13 17:00:00 No Longer Active 09/19/2013 [facility] Ambien Notes: (Same As: Ambien) No Longer Active 09/19/2013 [facility] Hydroxyzine Notes: (Same as: V istaril) No Longer Active 09/19/2013 [facility] Temazepam Notes: (Same As: Res toril) Inactive 09/18/2013 [facility] Dilaudid 1 mg, 1 mL, Route: IV , 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, Q3H, Dosing Weight 69.545, kg, PRN Pain Score 7-10, Start date: 09/18/13 16:45:00, Duration: 30 day, Stop date: 10/18/13 16:44:00 No Longer Active 09/18/2013 [facility] Acetaminophen Notes: Do not ex ceed 4 gm/day. (Same as: Tylenol) No Longer Active 09/18/2013 [facility] Docusate Notes: (Same as: Cola ce) (Do Not Crush) No Longer Active 09/18/2013 [facility] Saline Flush 0.9% Notes: (Same as: BD Posiflush) No Longer Active 09/18/2013 [facility] D5W 1/2NS + KCL 20mEq/L 1000ml (Premix) 1,000 mL Notes: PREMIX IV - Do Not Alter No Longer Active 09/18/2013 [facility] Acetaminophen 325 MG / Hydrocodone Faby trate 10 MG Oral Tablet [Republic 10/325] 1 tab, PO, Q4H, for pain, # 50 tab, 0 Re fill(s) Active 09/13/2013 [facility] Acetaminophen 65 MG/ML / Oxycodone [place] chloride 1 MG/ML Oral Solution 5 ml, PO, Q4H, for pain, # 480 mL, 0 Ref ill(s) Active 09/13/2013 [facility] Acetaminophen 65 MG/ML / Oxycodone [place] chloride 1 MG/ML Oral Solution 5 ml, PO, Q4H, for pain, # 480 mL, 0 Ref ill(s) Active 09/13/2013 [facility] Ciprofloxacin 500 MG Oral Tablet [Cipro] 500 mg = 1 tab, PO, Q12H, # 28 tab, 0 Refill(s) Active 09/13/2013 [facility] Acetaminophen 325 MG / Hydrocodone Faby trate 5 MG Oral Tablet [Republic 5/325] 1 tab, Route: PO, Dosing Weight 69.545, kg, ONCE, Start date: 09/13/13 2:44:00, Stop date: 09/13/13 2:44:00 Inactive 09/13/2013 [facility] Acetaminophen 33.3 MG/ML / Hydrocodone B itartrate 0.5 MG/ML Oral Solution 15 ml, PO, Q4H, for pain, # 60 mL, 0 Ref ill(s) Active 09/13/2013 [facility] Ondansetron 8 MG Disintegrating Tablet [Zofran] Special Instructions: Dissolve tab under tongue Active 09/13/2013 [facility] promethazine 50 mg rectal suppository 50 mg = 1 supp, MN, Q6H, Nausea & Vomiting, # 12 supp, 0 Refill(s) Active 09/13/2013 [facility] Ciprofloxacin Notes: Do not re frigerate Inactive 09/13/2013 [facility] Sodium Chloride 0.154 MEQ/ML Injectable Solution 1,000 mL, 1,000 ml/hr, Infuse Over: 1 hr, Route: IV, 1,000, 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, ONCE, Priority: STAT, Dosing Weight 69.545 kg, Start date: 09/12/13 23:34:00, Duration: 1 doses or times, Stop date: 09/12/13 23:34:00 Inactive 09/13/2013 [facility] d50 syringe Special Instructio ns: 25 ml = 12.5 gm No Longer Active 09/13/2013 [facility] Dilaudid 0.5 mg, 0.5 mL, Route : IV, 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, Q3H, Dosing Weight 69.545, kg, Start date: 09/12/13 23:00:00, Duration: 30 day, Stop date: 10/12/13 20:00:00 No Longer Active 09/13/2013 [facility] Promethazine Notes: Do not giv e IV push. (Same as: Phenergan) Inactive 09/13/2013 [facility] Ondansetron Notes: (Same as: Manoj parnell) Inactive 09/13/2013 [facility] Sodium Chloride 0.154 MEQ/ML Injectable Solution 1,000 mL, 1,000 ml/hr, Infuse Over: 1 hr, Route: IV, 1,000, 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, ONCE, Priority: STAT, Dosing Weight 69.545 kg, Start date: 09/12/13 20:50:00, Duration: 1 doses or times, Stop date: 09/12/13 20:50:00 Inactive 09/13/2013 [facility] Famotidine Notes: (Same as: Isaías pcid) Can be dilute in 5- 10cc NS IVP: Slow IV push over at least 2 minutes. Inactive 09/13/2013 [facility] Acetaminophen 325 MG / Hydrocodone Faby trate 10 MG Oral Tablet 1 tab, PO, Q4H, Pain Score 4-6, # 10 tab , 0 Refill(s) Active 09/10/2013 [facility] promethazine 25 mg rectal suppository 25 mg = 1 supp, MN, Q4H, Nausea & Vomiting, # 10 supp, 0 Refill(s) Active 09/10/2013 [facility] Ondansetron 0.8 MG/ML Oral Solution [Zofran] Notes: (Same as: Zofran ODT) No Longe r Active 09/09/2013 [facility] Phenergan Notes: (Same as: Phe nergan) No Longer Active 09/09/2013 [facility] Thiamine Notes: (Same As: Danica min B1) No Longer Active 09/09/2013 [facility] Metoclopramide 10 MG Oral Tablet [Reglan] Notes: (Same as: Reglan) Take 30 min before meals No Longer Active 09/08/2013 [facility] promethazine 12.5 mg rectal suppository 12.5 mg = 1 supp, MN, Q4H, Nausea & Vomiting, # 12 can, 0 Refill(s) Active 09/07/2013 [facility] Phenergan Notes: (Same as: Phe nergan) No Longer Active 09/07/2013 [facility] Protonix Notes: Tablet should not be chewed or crushed. (Same as: Protonix) No Longer Active 09/06/2013 [facility] Actigall Notes: (Same As: Acti gall) No Longer Active 09/06/2013 [facility] hydrocortisone acetate 25 MG Rectal Supp ository [Anusol HC] Notes: (Same as: Anusol-HC, Hemorrhoidal HC) No Longer Active 09/05/2013 [facility] Metronidazole 500 MG Oral Tablet Notes: (Same as: Flagyl) Take with food/ avoid alcohol No Longer Active 09/05/2013 [facility] Sodium Chloride 0.154 MEQ/ML Injectable Solution 1,000 mL, Rate: 25 ml/hr, Infuse over: 40 hr, Route: IV, Dosing Weight 67.273 kg, Total Volume: 1,000, Start date: 09/05/13 12:09:00, Duration: 1 day, Stop date: 09/06/13 12:08:00 Inactive 09/05/2013 [facility] D5NS 1,000 mL 1,000 mL, Rate: 125 ml/hr, Infuse over: 8 hr, Route: IV, Dosing Weight 67.273 kg, Total Volume: 1,000, Start date: 09/04/13 20:05:00, Duration: 30 day, Stop date: 10/04/13 20:04:00 No Longer Active 09/05/2013 [facility] Golytely Notes: (polyethylene glycol electrolyte solution 4 Liter bottle) (Same as: Golytely, Colyte) Inactive 09/04/2013 [facility] Miralax Notes: Dissolve in 8 o z of water or juice. (Same as: Miralax) No Longer Active 09/03/2013 [facility] Docusate Sodium 100 MG Oral Capsule 100 mg, 1 cap, Route: PO, Drug form: CAP, BID, Dosing Weight 67.273, kg, PRN Constipation, Start date: 09/03/13 12:48:00, Duration: 30 day, Stop date: 10/03/13 12:47:00 Inactive 09/03/2013 [facility] Protonix Notes: For IV push re constitute with 10 ml 0.9% sodium chloride and push over 2 minutes. (Same as: Protonix) No Longer Active 09/03/2013 [facility] Hydroxyzine Notes: (Same as: A tarax) Avoid alcohol. No Longer Active 09/03/2013 [facility] Ambien Notes: (Same As: Ambien) No Longer Active 09/03/2013 [facility] Benadryl Notes: (Same as: [place] dryl) No Longer Active 09/02/2013 [facility] Hyoscyamine Notes: (Same as: L evsin) Take 30 min before meal No Longer Active 09/02/2013 [facility] Dilaudid 1 mg, 1 mL, Route: IV , 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, Q4H, Dosing Weight 67.273, kg, PRN Pain Score 7-10, Start date: 09/02/13 17:35:00, Duration: 30 day, Stop date: 10/02/13 17:34:00 No Longer Active 09/02/2013 [facility] Diazepam Notes: (Same as: Sanchez um) No Longer Active 09/02/2013 [facility] Potassium Chloride 20 MEQ Extended Release Tablet Notes: (Same as: K-Dur 20) "Do Not Crush" With food and full glass of water No Longer Active 09/02/2013 [facility] Ascorbic Acid / Beta Carotene / cuprous oxide / Lutein / sodium selenate / Vitamin E / Zinc Oxide Notes: (Same as:Thera-M, Theragran-M) Give with food. No Longer Active 09/02/2013 [facility] Celexa Notes: (Same As: CeleXA) No Longer Active 09/02/2013 [facility] promethazine 25 mg oral tablet 25 mg = 1 tab, PO, Q6H, Nausea & Vomiting, # 15 tab, 0 Refill(s) No Longer Active 09/02/2013 [facility] zolpidem 10 mg oral tablet 10 mg = 1 tab, PO, Bedtime, for sleep, 0 Refill(s) Active 09/02/2013 [facility] Miralax 17 gm, PO, Daily, 0 Re fill(s) Active 09/02/2013 [facility] hyoscyamine 0.125 mg sublingual tablet 0.125 mg = 1 tab, SL, Q6H, GI Upset, 0 Refill(s) Active 09/02/2013 [facility] Phenergan Notes: Do not give I V push. (Same as: Phenergan) No Longer Active 09/02/2013 [facility] Ondansetron Notes: (Same as: Manoj parnell) Inactive 09/02/2013 [facility] Morphine Notes: (Same as:MORPh ine Sulfate) Inactive 09/02/2013 [facility] Docusate Notes: (Same as: Cola ce) (Do Not Crush) No Longer Active 09/02/2013 [facility] Saline Flush 0.9% Notes: (Same as: BD Posiflush) No Longer Active 09/02/2013 [facility] Sodium Chloride 0.0769 MEQ/ML Injectable Solution 1,000 mL, Rate: 125 ml/hr, Infuse over: 8 hr, Route: IV, Dosing Weight 67.273 kg, Total Volume: 1,000, Start date: 09/02/13 8:21:00, Duration: 30 day, Stop date: 10/02/13 8:20:00 Inactive 09/02/2013 [facility] Acetaminophen Notes: Max aceta minophen = 4000mg/day (4 gm/day). (Same as: Tylenol) N o Longer Active 09/02/2013 [facility] Acetaminophen 325 MG / Hydrocodone Faby trate 10 MG Oral Tablet Notes: Do not exceed 4gm/day of acetamin ophen. (Same as: [place] 325/10) No Longer Active 09/02/2013 [facility] Acetaminophen 325 MG / Hydrocodone Faby trate 5 MG Oral Tablet Notes: (Same as: [place] 325/5) Do not ex ceed 4gm/day of acetaminophen. No Longer Active 09/02/2013 [facility] Chlordiazepoxide Hydrochloride 25 MG Oral Capsule 25 mg, 1 cap, Route: PO, Drug form: CAP, QID, Dosing Weight 67.273, kg, PRN as needed for anxiety, Start date: 09/02/13 7:30:00, Duration: 30 day, Stop date: 10/02/13 7:29:00 No Longer Active 09/02/2013 [facility] normal saline 0.9% IV 1,000 mL 1,000 mL, Rate: 125 ml/hr, Infuse over: 8 hr, Route: IV, Dosing Weight 67.273 kg, Total Volume: 1,000, Start date: 09/02/13 7:29:00, Duration: 30 day, Stop date: 10/02/13 7:28:00 No Longer Active 09/02/2013 [facility] Zofran 4 mg, Route: IVP, 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, ONCE, Dosing Weight 67.273, kg, Priority: STAT, Start date: 09/02/13 4:03:00, Stop date: 09/02/13 4:03:00 Inactive 09/02/2013 [facility] Promethazine Hydrochloride 25 MG Oral Ta blet [Phenergan] 25 mg = 1 tab, PO, Q4H, Nausea, # 15 tab, 0 Refill(s) Inactive 09/02/2013 [facility] Dilaudid 1 mg, Route: IV, ONCE , Dosing Weight 67.273, kg, Start date: 09/02/13 2:49:00, Stop date: 09/02/13 2:49:00 Inactive 09/02/2013 [facility] Phenergan 12.5 mg, Route: IVPB , ONCE, Dosing Weight 67.273, kg, Priority: STAT, Start date: 09/02/13 2:49:00, Stop date: 09/02/13 2:49:00 Inactive 09/02/2013 [facility] Hydromorphone 1 mg, Route: IVP , ONCE, Dosing Weight 67.273, kg, Priority: STAT, Start date: 09/02/13 0:51:00, Stop date: 09/02/13 0:51:00 Inactive 09/02/2013 [facility] Phenergan Notes: Do not give I V push. (Same as: Phenergan) No Longer Active 09/02/2013 [facility] Sodium Chloride 0.154 MEQ/ML Injectable Solution 1,000 mL, 1000 ml/hr, Infuse Over: 1 hr, Route: IV, 1,000, 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, ONCE, Priority: STAT, Dosing Weight 67.273 kg, Start date: 09/01/13 23:58:00, Duration: 1 doses or times, Stop date: 09/01/13 23:58:00 No Longer Active 09/02/2013 [facility] Saline Flush 0.9% Notes: (Same as: BD Posiflush) No Longer Active 09/02/2013 [facility] pantoprazole 40 mg oral enteric coated tablet 40 mg = 1 tab, PO, Daily, # 30 tab, 0 Refill(s) On Hold 09/01/2013 [facility] promethazine 6.25 mg/5 mL oral syrup 18.75 mg = 15 mL, PO, QID, as needed for nausea/vomiting, # 500 mL, 0 Refill(s) On Hold 09/01/2013 [facility] Ondansetron Notes: (Same as: Manoj parnell ODT) Inactive 09/01/2013 [facility] Acetaminophen 325 MG / Hydrocodone Faby trate 10 MG Oral Tablet Notes: Do not exceed 4gm/day of acetamin ophen. (Same as: [place] 325/10) Inactive 09/01/2013 [facility] Solu-Medrol Notes: (Same as:So kristopher-MEDROL, A-Methapred) Inactive 09/01/2013 [facility] Diphenhydramine Notes: (Same a s: Benadryl) Inactive 09/01/2013 [facility] Metoclopramide Notes: (Same as : Reglan) Inactive 09/01/2013 [facility] Ondansetron Notes: (Same as: Z ofran) Inactive 09/01/2013 [facility] Hydromorphone 0.5 mg, 0.5 mL, Route: IVP, 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, ONCE, Dosing Weight 63.636, kg, Priority: STAT, Start date: 09/01/13 0:43:00, Stop date: 09/01/13 0:43:00 Inactive 09/01/2013 [facility] Sodium Chloride 0.154 MEQ/ML Injectable Solution 1,000 mL, 1,000 ml/hr, Infuse Over: 1 hr, Route: IV, 1,000, 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, ONCE, Priority: STAT, Dosing Weight 63.636 kg, Start date: 09/01/13 0:43:00, Duration: 1 doses or times, Stop date: 09/01/13 0:43:00 Inactive 09/01/2013 [facility] albuterol 90 mcg/inh inhalation aerosol 2 puff, INHALATION, QID, wheezing, # 1 can, 0 Refill(s) Active Termin[facility] 06/10/2013 [facility] DuoNeb inhalation solution 3 m l, INHALATION, QID, Wheezing, # 60 ea, 0 Refill(s) Active [facility] 06/10/2013 [facility] docusate sodium 100 mg oral capsule 100 mg = 1 cap, PO, Daily, as needed for constipation, # 100 cap, 3 Refill(s) Active Jim 06/10/2013 [facility] polyethylene glycol 3350 oral powder for reconstitutio n 17 gm, PO, BID, # 527 gm, 1 Refill(s) Active Vikki paneni 06/10/2013 [facility] predniSONE 40 mg, 2 tab, Route : PO, Drug form: TAB, Daily, Dosing Weight 66.364, kg, Start date: 06/10/13 9:00:00, Duration: 30 day, Stop date: 07/09/13 9:00:00Take with food. Inactive Ra him 06/10/2013 [facility] Nebulizer 1 ea, MISC, ONCALL, # 1 ea, 0 Refill(s) Active [facility] 06/10/2013 [facility] zolpidem 10 mg oral tablet 10 mg = 1 tab, PO, Bedtime, # 7 tab, 0 Refill(s) Active [facility] 06/10/2013 [facility] predniSONE 20 mg oral tablet 4 0 mg = 2 tab, PO, Daily, # 10 tab, 0 Refill(s) Active [facility] 06/10/2013 [facility] levofloxacin 750 mg oral tablet 750 mg = 1 tab, PO, Daily, # 5 tab, 0 Refill(s) Active [facility] 06/10/2013 [facility] Promethazine DM oral syrup 5 m L, PO, Q6H, for cough, # 30 mL, 0 Refill(s) Active [facility] 06/10/2013 [facility] Bentyl 10 mg, 1 cap, Route: PO , Drug form: CAP, QID, Dosing Weight 66.364, kg, Start date: 06/09/13 21:00:00, Duration: 30 day, Stop date: 07/09/13 17:00:00(Same as: Bentyl) No Longer Active Jim 06/10/2013 [facility] Levaquin 500 mg, 2 tab, Route: PO, Drug form: TAB, Daily, Dosing Weight 66.364, kg, Start date: 06/09/13 21:00:00, Duration: 30 day, Stop date: 07/08/13 21:00:00Do not give w/antacids, dairy pdt & minerals Take 1 hr before or 2 hr after dairy pdt (Same as:Levaquin) No Longer Active [facility] 06/10/2013 [facility] MiraLax 17 gm, 1 pkt, Route: P O, Drug form: PWDR, BID, Dosing Weight 66.364, kg, Start date: 06/09/13 9:00:00, Duration: 30 day, Stop date: 07/08/13 17:00:00Dissolve in 8 oz of water or juice. (Same as: Miralax) No Longer Active Jim 06/09/2013 [facility] Colace 100 mg oral capsule 100 mg, 1 cap, Route: PO, Drug form: CAP, Bedtime, Dosing Weight 66.364, kg, Start date: 06/08/13 21:00:00, Duration: 30 day, Stop date: 07/07/13 21:00:00(Same as: Colace) (Do Not Crush) No Longer Active Jim 06/09/2013 [facility] Dilaudid 1 mg, 1 mL, Route: IV , 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, Q6H, Dosing Weight 66.364, kg, PRN Pain Score 6-10, Start date: 06/08/13 10:35:00, Duration: 30 day, Stop date: 07/08/13 10:34:00 No Longer Active Ranem 06/08/2013 [facility] hydromorphone 2 mg, 2 mL, Rout e: IVP, 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, ONCE, Dosing Weight 66.364, kg, Priority: STAT, Start date: 06/08/13 0:54:00, Stop date: 06/08/13 0:54:00 Inactive [facility] 06/08/2013 [facility] Flonase 0.05 mg/inh nasal spray 2 inhalation, Route: Each Affected Nostril, Drug Form: SPRY, Dosing Weight 66.364, kg, Daily, Start date: 06/07/13 9:00:00, Duration: 30 day, Stop date: 07/06/13 9:00:00(Same as: Flonase) No Longer Active Romo 06/07/2013 [facility] CeleXA 40 mg, 2 tab, Route: PO , Drug form: TAB, QAM, Dosing Weight 66.364, kg, Start date: 06/06/13 9:00:00, Duration: 30 day, Stop date: 07/05/13 9:00:00(Same As: CeleXA) No Longer Active [facility] 06/06/2013 [facility] Ambien 10 mg, 1 tab, Route: PO , Drug form: TAB, ONCE, Start date: 06/06/13 0:35:00, Stop date: 06/06/13 0:35:00(Same As: Ambien) Inactive [facility] 06/06/2013 [facility] Fioricet oral tablet 1 tab, Ro marita: PO, Drug Form: TAB, Dosing Weight 66.364, kg, Q4H, PRN Headache, Start date: 06/05/13 21:06:00, Duration: 30 day, Stop date: 07/05/13 21:05:00([id number]-[id number] 325-50-40mg) Do not exceed 4 gm/day of acetaminophen. (Same as: Esgic, Fioricet) No Longer Active Rahim 06/06/2013 [facility] zolpidem 10 mg, 1 tab, Route: PO, Drug form: TAB, Bedtime, Dosing Weight 66.364, kg, Start date: 06/05/13 21:00:00, Duration: 30 day, Stop date: 07/04/13 21:00:00(Same As: Ambien) No Longer Active [facility] 06/06/2013 [facility] hydrOXYzine 25 mg, 1 tab, Rout e: PO, Drug form: TAB, Bedtime, Dosing Weight 66.364, kg, Start date: 06/05/13 21:00:00, Duration: 30 day, Stop date: 07/04/13 21:00:00(Same as: Atarax) Avoid alcohol. No Longer Active [facility] 06/06/2013 [facility] Tamiflu 75 mg, 1 cap, Route: P O, Drug form: CAP, [id number], Dosing Weight 66.364, kg, Start date: 06/05/13 21:00:00, Duration: 10 doses or times, Stop date: 06/10/13 9:00:00Take with food. Same as: Tamiflu) No Longer Active [facility] 06/06/2013 [facility] chlordiazePOXIDE 25 mg oral capsule 25 mg, 1 cap, Route: PO, Drug form: CAP, QID, Dosing Weight 66.364, kg, PRN Anxiety, Start date: 06/05/13 19:45:00, Duration: 30 day, Stop date: 07/05/13 19:44:00 No Longer Active Termin[facility] 06/06/2013 [facility] Solu-MEDROL 20 mg, 0.5 mL, Rou te: IVP, 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, [id number], Dosing Weight 67.727, kg, Start date: 06/05/13 18:00:00, Stop date: 07/05/13 6:00:00(Same as:Solu-MEDROL, A-Methapred) No Longer Active [facility] 06/06/2013 [facility] albuterol 1.25 mg, 3 mL, Route : NEB, Drug form: SOLN, PRN, PRN Respiratory Protocol, Start date: 06/05/13 16:04:00, Duration: 30 day, Stop date: 07/05/13 16:03:00SEE RT DOCUMENTATION (Same as: Proventil) No Longer Active [facility] 06/05 [facility] levofloxacin 750 mg oral tablet 750 mg = 1 tab, PO, Daily, # 10 tab, 0 Refill(s) N o Longer Active [facility] 06/05/2013 [facility] predniSONE 5 mg oral tablet 5 mg = 1 tab, PO, TID, # 21 tab, 0 Refill(s) No Longer Active 06/05/2013 [facility] chlordiazePOXIDE 25 mg oral capsule 25 mg = 1 cap, PO, QID, Anxiety, # 60 cap, 0 Refill(s) Active [facility] 06/05/2013 [facility] Promethazine DM oral syrup 5 m l, PO, Q6H, for cough, # 120 ml, 0 Refill(s) No Longer Active [facility] 06/05/2013 [facility] acetaminophen 650 mg, 2 tab, R oute: PO, Drug form: TAB, Q4H, Dosing Weight 67.727, kg, PRN Pain 1-3/Temp > 100.4 F, Start date: 06/05/13 14:49:00, Duration: 30 day, Stop date: 07/05/13 14:48:00Do not exceed 4 gm/day. (Same as: Tylenol) No Longer Active [facility] 06/05/2013 [facility] D5W 1/2NS + KCL 20mEq/L 1000ml (Premix) 1000 mL 1,000 mL, Rate: 100 ml/hr, Infuse over: 10 hr, Route: IV, Dosing Weight 67.727 kg, Total Volume: 1,000, Start date: 06/05/13 14:49:00, Duration: 30 day, Stop date: 07/05/13 14:48:00 Inactive [facility] 06/05/2013 [facility] docusate 100 mg, 1 cap, Route: PO, Drug form: CAP, BID, Dosing Weight 67.727, kg, PRN as needed for constipation, Start date: 06/05/13 14:49:00, Duration: 30 day, Stop date: 07/05/13 14:48:00(Same as: Colace) (Do Not Crush) No Longer Active [facility] 06/05/2013 [facility] Saline Flush 0.9% 5 ml, Route: IVP, Drug Form: INJ, Dosing Weight 67.727, kg, PRN, PRN Line Flush, Start date: 06/05/13 14:49:00, Duration: 30 day, Stop date: 07/05/13 14:48:00Same as: BD Posiflush Sterile No Longer Active [facility] 06/05 [facility] Restoril 30 mg, 2 cap, Route: PO, Drug form: CAP, Bedtime, Dosing Weight 67.727, kg, PRN Sleep, Start date: 06/05/13 12:03:00, Duration: 30 day, Stop date: 07/05/13 12:02:00(Same As: Restoril) No Longer Active [facility] 06/05/2013 [facility] normal saline 0.9% IV 1,000 mL 1,000 mL, Rate: 125 ml/hr, Infuse over: 8 hr, Route: IV, Dosing Weight 67.727 kg, Total Volume: 1,000, Start date: 06/05/13 12:02:00, Duration: 30 day, Stop date: 07/05/13 12:01:00 No Longer Active [facility] 06/05/2013 [facility] Robitussin-AC oral syrup 5 ml, Route: PO, Drug Form: LIQ, Dosing Weight 67.727, kg, Q4H, PRN Cough/Congestion, Start date: 06/05/13 12:02:00, Duration: 30 day, Stop date: 07/05/13 12:01:00(Same As: Robitussin AC) No Longer Active [facility] 06/05 [facility] Levaquin 500 mg, 100 mL, Route : IVPB, 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, [id number], Dosing Weight 67.727, kg, Start date: 06/05/13 12:00:00, Duration: 30 day, Stop date: 07/04/13 20:00:00(Same as:Levaquin) No Longer Active [facility] 06/05/2013 [facility] Xopenex 0.63 mg, Route: NEB, P RN, Dosing Weight 67.727, kg, PRN Respiratory Protocol, Start date: 06/05/13 11:57:00, Duration: 30 day, Stop date: 07/05/13 11:56:00 Inactive [facility] 06/05/2013 [facility] prochlorperazine 10 mg oral tablet 10 mg, 1 tab, PO, BID, PRN, 10 tab, Headache, Substitution Allowed, TAB PO Active [facility] 02/12/2013 [facility] NS (Bolus) IV 500 mL 500 mL, R ate: 500 ml/hr, Infuse over: 1 hr, Route: IV, Dosing Weight 67.727 kg, Total Volume: 500, Priority: STAT, Start date: 02/12/13 3:55:00, Duration: 1 doses or times, Stop date: 02/12/13 4:54:00, Bolus DoseBolus Dose IV No Longer Active [place] 02/12/2013 [facility] Benadryl 25 mg, Route: IVP, ON CE, Dosing Weight 67.727, kg, Priority: STAT, Start date: 02/12/13 3:43:00, Stop date: 02/12/13 3:43:00 IVP No Longer Active [place] 2012 [facility] Reglan 10 mg, Route: IVP, 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, ONCE, Dosing Weight 67.727, kg, Priority: STAT, Start date: 02/12/13 3:43:00, Stop date: 02/12/13 3:43:00 IVP No Longer Active [place] 02/12/2013 [facility] Dilaudid 1 mg, Route: IV, ONCE , Dosing Weight 67.727, kg, Start date: 02/12/13 0:43:00, Stop date: 02/12/13 0:43:00 IV No Longer Active [place] 02/12/2013 [facility] GI cocktail 30 mL, Route: PO, Dosing Weight 67.727, kg, ONCE, STAT, Start date: 02/12/13 0:40:00, Stop date: 02/12/13 0:40:00 PO No Longer Active [place] 2012 [facility] Dilaudid 1 mg, Route: IV, ONCE , Dosing Weight 67.727, kg, Start date: 02/11/13 23:52:00, Stop date: 02/11/13 23:52:00 IV No Longer Active [place] 02/12/2013 [facility] morphine Sulfate 4 mg, Route: IVP, 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, ONCE, Dosing Weight 67.727, kg, Priority: STAT, Start date: 02/11/13 22:12:00, Stop date: 02/11/13 22:12:00 IVP No Longer Active [place] 02/12/2013 [facility] ondansetron 4 mg, Route: IVP, 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, ONCE, Dosing Weight 67.727, kg, Priority: STAT, Start date: 02/11/13 22:12:00, Stop date: 02/11/13 22:12:00 IVP No Longer Active [place] 02/12/2013 [facility] Lactated Ringers Injection IV 1,000 mL 1,000 mL, Rate: 1,000 ml/hr, Infuse over: 1 hr, Route: IV, Dosing Weight 67.727 kg, Total Volume: 1,000, Bolus infusion, Priority: STAT, Start date: 02/11/13 22:12:00, Duration: 1 doses or times, Stop date: 02/11/13 23:11:00 IV No Longer Active [place] 02/12/2013 [facility] Cipro 750 mg oral tablet 750 m g, 1 tab, PO, Q12H, 6 tab, Substitution Allowed PO Active [facility] 09/28/2012 [facility] Dilaudid 1 mg, 0.5 mL, Route: IV, 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, ONCE, Dosing Weight 64.545, kg, Start date: 09/28/12 1:27:00, Stop date: 09/28/12 1:27:00 IV No Longer Active [facility] 09/28/2012 [facility] Dilaudid 1 mg, 0.5 mL, Route: IV, 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, ONCE, Dosing Weight 64.545, kg, Start date: 09/28/12 0:16:00, Stop date: 09/28/12 0:16:00 IV No Longer Active [facility] 09/28/2012 [facility] NS (Bolus) IV 1,000 mL 1,000 m L, Rate: 1,000 ml/hr, Infuse over: 1 hr, Route: IV, Dosing Weight 64.545 kg, Total Volume: 1,000, Priority: STAT, Start date: 09/28/12 0:15:00, Duration: 1 doses or times, Stop date: 09/28/12 1:14:00, Bolus DoseBolus Dose IV No Longer Active [facility] 09/28/2012 [facility] morphine Sulfate 4 mg, Route: IVP, ONCE, Dosing Weight 64.545, kg, Start date: 09/28/12 0:15:00, Stop date: 09/28/12 0:15:00 IVP No Longer Active [facility] 09/28 [facility] Tylenol 975 mg, 3 tab, Route: PO, Drug form: TAB, ONCE, Dosing Weight 64.545, kg, Priority: STAT, Start date: 09/27/12 22:12:00, Stop date: 09/27/12 22:12:00 PO No Longer Active [facility] 09/28/2012 [facility] oral tablet 1 tab, PO, Daily, Substitution Allowed, Maintenance PO Active 09/28/2012 [facility] nt magnesium sulfate 2 gm, 50 mL, Route: IVPB, 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, ONCE, Dosing Weight 64.545, kg, Total dose = 2 gm, Start date: 09/27/12 21:35:00, Duration: 1 doses or times, Stop date: 09/27/12 21:35:00 IVPB No Longer Active [facility] 09/28 [facility] diazepam 10 mg, 1 tab, Route: PO, Drug form: TAB, ONCE, Dosing Weight 64.545, kg, Priority: STAT, Start date: 09/27/12 21:17:00, Stop date: 09/27/12 21:17:00 PO No Longer Active [facility] 09/28/2012 [facility] Celexa 20 mg, PO, QAM, Substit ution Allowed PO Active 09/28/2012 [facility] Atarax 25 mg oral tab 25 mg, 1 tab, PO, Bedtime, Substitution Allowed PO Active 09/28/2012 [facility] Ambien Substitution Allowed No Longer Active 09/28/2012 [facility] ondansetron 2 mg/mL injectable solution 4 mg, 2 mL, IVP, Q6H, PRN, 10 mL, Nausea & Vomiting, Substitution Allowed, INJ IVP Active [facility] 08/11/2012 [facility] acetaminophen-hydrocodone 325 mg-5 mg oral tablet 2 tab, PO, Q4H, PRN, 15 tab, Pain Score 4-6, Substitution Allowed, Maintenance, TAB PO Active [facility] 08/11/2012 [facility] docusate sodium 100 mg oral capsule 100 mg, 1 cap, Route: PO, Drug form: CAP, BID, Dosing Weight 66.818, kg, Start date: 08/10/12 9:00:00, Duration: 30 day, Stop date: 09/08/12 17:00:00 PO No Longer Active [facility] 08/10/2012 [facility] Flomax 0.4 mg, 1 cap, Route: P O, Drug form: CAP, After Breakfast, Dosing Weight 66.818, kg, Start date: 08/10/12 8:30:00, Duration: 30 day, Stop date: 09/08/12 8:30:00 PO No Longer Active [facility] 08/10/2012 [facility] Lovenox 40 mg, 0.4 mL, Route: SUB-Q, 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, [id number], Dosing Weight 66.818, kg, Start date: 08/10/12 6:00:00, Duration: 30 day, Stop date: 09/08/12 6:00:00 SUB-Q No Longer Active [facility] 08/10/2012 [facility] METRONIDazole (SCIP) 500 mg, 1 00 mL, Route: IVPB, 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, [id number], Dosing Weight 66.818, kg, Start date: 08/09/12 19:00:00, Duration: 3 doses or times, Stop date: 08/10/12 11:00:00 IVPB No Longer Active [facility] 08/10/2012 [facility] Ofirmev 1,000 mg, Route: IV, D rug form: INJ, ONCE, Dosing Weight 66.818, kg, PRN Pain, for > or = 50 kg, Start date: 08/09/12 18:15:00 IV No Longer Active [place] 08/09/2012 [facility] Republic 10/325 oral tablet 1 tab , Route: PO, Drug Form: TAB, Dosing Weight 66.818, kg, Q6H, PRN Pain, Start date: 08/09/12 18:15:00, Duration: 30 day, Stop date: 09/08/12 18:14:00 PO No Longer Active [facility] 08/09/2012 [facility] hydromorphone 0.5 mg, Route: I TURN DOWN MAN, Q5Min, Dosing Weight 66.818, kg, PRN Pain Score 4-6, Start date: 08/09/12 18:15:00, Duration: 5 doses or times, Stop date: Limited # of times IVP No Longer Active [facility] 08/09/2012 [facility] fentanyl 25 microgram, Route: IVP, Q5Min, Dosing Weight 66.818, kg, PRN Pain Score 4-6, Start date: 08/09/12 18:15:00, Duration: 4 doses or times, Stop date: Limited # of times IVP No Longer Active [facility] 08/09/2012 [facility] flumazenil 0.2 mg, Route: IVP, PRN, Dosing Weight 66.818, kg, PRN Benzodiazepine Reversal, Initial dose, Start date: 08/09/12 18:15:00, Duration: 30 day, Stop date: 09/08/12 18:14:00 IVP No Longer Active [facility] 08/09/2012 [facility] naloxone 0.04 mg, Route: IVP, Q2MIN, Dosing Weight 66.818, kg, PRN Narcotic Reversal, Start date: 08/09/12 18:15:00, Duration: 8 doses or times, Stop date: Limited # of times IVP No Longer Active [facility] 08/09/2012 [facility] ondansetron 4 mg, Route: IVP, ONCE, Dosing Weight 66.818, kg, PRN Nausea & Vomiting, Start date: 08/09/12 18:15:00 IVP No Longer Active [facility] 08/09/2012 [facility] ciprofloxacin (SCIP) 400 mg, 2 00 mL, Route: IVPB, 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, [id number], Dosing Weight 66.818, kg, Start date: 08/09/12 18:00:00, Duration: 2 doses or times, Stop date: 08/10/12 6:00:00 IVPB No Longer Active [facility] 08/09/2012 [facility] Lactated Ringers Injection IV 1,000 mL 1,000 mL, Rate: 125 ml/hr, Infuse over: 8 hr, Route: IV, kg, Total Volume: 1,000, Start date: 08/09/12 17:24:00, Duration: 30 day, Stop date: 09/08/12 17:23:00 IV No Longer Active [facility] 08/09/2012 [facility] acetaminophen-hydrocodone 325 mg-5 mg oral tablet 2 tab, Route: PO, Drug Form: TAB, Dosing Weight 66.818, kg, Q4H, PRN Pain Score 4-6, Start date: 08/09/12 17:24:00, Duration: 30 day, Stop date: 09/08/12 17:23:00 PO No Longer Active [facility] ondansetron 4 mg, 2 mL, Route: IVP, 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, Q6H, Dosing Weight 66.818, kg, PRN Nausea & Vomiting, Start date: 08/09/12 17:24:00, Duration: 30 day, Stop date: 09/08/12 17:23:00 IVP No Longer Active [facility] 08/09/2012 [facility] diphenhydrAMINE 25 mg, 1 tab, Route: PO, Drug form: TAB, Bedtime, Dosing Weight 66.818, kg, PRN Insomnia, Start date: 08/09/12 17:24:00, Duration: 30 day, Stop date: 09/08/12 17:23:00 PO No Longer Active [facility] 08/09/2012 [facility] Lactated Ringers IV 1,000 mL 1 ,000 mL, Rate: 25 ml/hr, Infuse over: 40 hr, Route: IV, kg, Total Volume: 1,000, Start date: 08/09/12 15:19:00, Duration: 30 day, Stop date: 09/08/12 15:18:00 IV No Longer Active [place] 08/09/2012 [facility] Rocephin + Sodium Chloride 0.9% IV 100 mL 2 gm, Route: IVPB, ONCALL, Start date: 08/09/12 12:00:00, Duration: 2 day, Stop date: 08/11/12 11:59:00 IVPB No Longer Active [facility] 08/09/2012 [facility] Paige Enema 133 ml, Route: MN, Drug Form: SUMAN, Dosing Weight 66.818, kg, ONCE, Start date: 08/08/12 15:57:00, Stop date: 08/08/12 15:57:00 MN No Longer Active [facility] 08/08/2012 [facility] Paige Enema 133 ml, Route: MN, Drug Form: SUMAN, Dosing Weight 66.818, kg, ONCE, Start date: 08/08/12 7:05:00, Stop date: 08/08/12 7:05:00 MN No Longer Active [facility] 08/08/2012 [facility] Ambien 10 mg, 1 tab, Route: PO , Drug form: TAB, Bedtime, Dosing Weight 66.818, kg, PRN as needed for sleep, Start date: 08/08/12 7:04:00, Duration: 30 day, Stop date: 09/07/12 7:03:00 PO No Longer Active [facility] 08/08/2012 [facility] temazepam 15 mg, 1 cap, Route: PO, Drug form: CAP, Bedtime, Dosing Weight 66.818, kg, Start date: 08/07/12 21:00:00, Duration: 30 day, Stop date: 09/05/12 21:00:00 PO No Longer Active [facility] 08/08/2012 [facility] Protonix 40 mg, 1 tab, Route: PO, Drug form: ECTAB, Before Dinner, Dosing Weight 66.364, kg, Start date: 08/07/12 16:30:00, Duration: 30 day, Stop date: 09/05/12 16:30:00 PO No Longer Active [facility] 08/07/2012 [facility] Pristiq 50mg po daily*Pts own med* Pristiq 50mg po daily*Pts own med*, Pristiq 50mg po daily*Pts own med*, Drug form: MISC, Route: PO, Daily, 08/07/12 9:00:00, Duration: 30 day, Stop date: 09/05/12 9:00:00 PO No Longer Active [facility] 08/07 [facility] Pristiq 50 mg oral tablet, extended release 1 tab, Route: PO, Drug form: ERTAB, Daily, Dosing Weight 66.364, kg, Start date: 08/07/12 9:00:00, Duration: 30 day, Stop date: 09/05/12 9:00:00 PO No Longer Active [facility] 08/07/2012 [facility] diazepam 10 mg, 1 tab, Route: PO, Drug form: TAB, QID, Dosing Weight 66.818, kg, Start date: 08/07/12 9:00:00, Duration: 30 day, Stop date: 09/05/12 21:00:00 PO No Longer Active [facility] 08/07/2012 [facility] Milk of Magnesia 60 ml, Route: PO, Drug Form: SUSP, Dosing Weight 66.818, kg, ONCE, PRN as needed for constipation, Start date: 08/07/12 7:13:00 PO No Longer Active [facility] 08/07/2012 [facility] Fleet Enema 133 ml, Route: MN, Drug Form: SUMAN, Dosing Weight 66.818, kg, ONCE, Start date: 08/07/12 7:12:00, Stop date: 08/07/12 7:12:00 MN No Longer Active [facility] 08/07/2012 [facility] Benadryl 25 mg, 0.5 mL, Route: IV, 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, Q4H, Dosing Weight 66.818, kg, PRN as needed for itching, Start date: 08/07/12 0:19:00, Duration: 30 day, Stop date: 09/06/12 0:18:00 IV No Longer Active [facility] 08/07/2012 [facility] hydromorphone 1.5 mg, 1.5 mL, Route: IV, Drug form: SOLN, Q3H, Dosing Weight 66.818, kg, PRN Pain Score 6-10, Start date: 08/06/12 17:42:00, Duration: 30 day, Stop date: 09/05/12 17:41:00 IV No Longer Active [facility] 08/06/2012 [facility] Protonix 40 mg, Route: IVP, Dr ug form: INJ, Before Dinner, Dosing Weight 66.364, kg, Start date: 08/06/12 16:30:00, Duration: 30 day, Stop date: 09/04/12 16:30:00 IVP No Longer Active [facility] 08/06/2012 [facility] Pristiq 50 mg oral tablet, extended release 50 mg, 1 tab, PO, Daily, 30 tab, Substitution Allowed, ERTAB PO Active [facility] 08/06/2012 [facility] Levaquin 500 mg, 100 mL, Route : IVPB, 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, [id number], Dosing Weight 66.364, kg, Start date: 08/06/12 15:00:00, Duration: 30 day, Stop date: 09/04/12 15:00:00 IVPB No Longer Active [facility] 08/06/2012 [facility] enoxaparin 40 mg, 0.4 mL, Rout e: SUB-Q, 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, [id number], Dosing Weight 66.364, kg, Start date: 08/06/12 15:00:00, Duration: 30 day, Stop date: 09/04/12 15:00:00 SUB-Q No Longer Active [facility] 08/06/2012 [facility] Restoril 30 mg, 2 cap, Route: PO, Drug form: CAP, Bedtime, Dosing Weight 66.364, kg, PRN Sleep, Start date: 08/06/12 14:15:00, Duration: 30 day, Stop date: 09/05/12 14:14:00 PO No Longer Active [facility] 08/06/2012 [facility] Phenergan + Sodium Chloride 0.9% IV 50 mL 12.5 mg, 0.5 mL, Route: IVPB, Q4H, Dosing Weight 66.364, kg, PRN Nausea & Vomiting, Start date: 08/06/12 14:14:00, Duration: 30 day, Stop date: 09/05/12 14:13:00 IVPB No Longer Active [facility] 08/06 [facility] Dilaudid 1 mg, 1 mL, Route: IV , Drug form: SOLN, Q3H, Dosing Weight 66.364, kg, PRN Pain, Start date: 08/06/12 14:13:00, Duration: 30 day, Stop date: 09/05/12 14:12:00 IV No Longer Active [facility] 08/06/2012 [facility] D5LR 1,000 mL 1,000 mL, Rate: 100 ml/hr, Infuse over: 10 hr, Route: IV, kg, Total Volume: 1,000, Start date: 08/06/12 14:08:00, Duration: 30 day, Stop date: 09/05/12 14:07:00 IV No Longer Active [facility] 08/06/2012 [facility] Bentyl 10 mg, 1 cap, Route: PO , Drug form: CAP, Q6H, Dosing Weight 66.364, kg, PRN For Pain, Start date: 07/19/12 14:23:00, Duration: 30 day, Stop date: 08/18/12 14:22:00 PO No Longer Active [facility] 07/19/2012 [facility] Fioricet 1 tab, Route: PO, David g Form: TAB, Dosing Weight 66.364, kg, Q4H, PRN Headache, Start date: 07/19/12 7:23:00, Duration: 30 day, Stop date: 08/18/12 7:22:00 PO No Longer Active [facility] 07/19/2012 [facility] zolpidem 20 mg, 2 tab, Route: PO, Drug form: TAB, Bedtime, Dosing Weight 66.364, kg, Start date: 07/18/12 21:00:00, Duration: 30 day, Stop date: 08/16/12 21:00:00 PO No Longer Active [facility] 07/19/2012 [facility] citalopram 10 mg, 1 tab, Route : PO, Drug form: TAB, Bedtime, Dosing Weight 66.364, kg, Start date: 07/18/12 21:00:00, Duration: 30 day, Stop date: 08/16/12 21:00:00 PO No Longer Active [facility] 07/19/2012 [facility] influenza virus vaccine, inactivated 0.5 ml, Route: IM, Drug Form: INJ, Start date: 07/18/12 13:30:00, Stop date: 07/18/12 13:30:00 Inactive [facility] 07/18/2012 [facility] Phenergan + Sodium Chloride 0.9% IV 50 mL 12.5 mg, 0.5 mL, Route: IVPB, ONCE, Dosing Weight 66.364, kg, Start date: 07/18/12 9:49:00, Stop date: 07/18/12 9:49:00 IVPB No Longer Active [facility] 07/18/2012 [facility] Valium 10 mg, 2 tab, Route: PO , Drug form: TAB, QID, Start date: 07/18/12 9:00:00, Duration: 30 day, Stop date: 08/16/12 21:00:00 PO No Longer Active [facility] 07/18 [facility] diazepam 10 mg, Route: PO, David g form: TAB, QID, Dosing Weight 66.364, kg, Start date: 07/18/12 9:00:00, Duration: 30 day, Stop date: 08/16/12 21:00:00 PO No Longer Active [facility] 07/18/2012 [facility] influenza virus vaccine, inactivated 0.5 ml, Route: IM, Drug Form: INJ, Daily, Start date: 07/18/12 9:00:00, Duration: 1 doses or times, Stop date: 07/18/12 9:00:00 IM No Longer Active [facility] 07/18/2012 [facility] Flomax 0.4 mg, 1 cap, Route: P O, Drug form: CAP, After Breakfast, Dosing Weight 66.364, kg, Start date: 07/18/12 8:30:00, Duration: 30 day, Stop date: 08/16/12 8:30:00 PO No Longer Active [facility] 07/18/2012 [facility] D5W 1/2NS + KCL 20mEq/L 1000ml (Premix) 1,000 mL 1,000 mL, Rate: 150 ml/hr, Infuse over: 6.7 hr, Route: IV, kg, Total Volume: 1,000, Start date: 07/18/12 6:37:00, Duration: 30 day, Stop date: 08/17/12 6:36:00 IV No Longer Active [facility] 07/18 [facility] diazepam 10 mg, 2 tab, Route: PO, Drug form: TAB, ONCE, Dosing Weight 66.364, kg, PRN Seizure, Start date: 07/18/12 6:10:00 PO No Longer Active [facility] 07/18/2012 [facility] diazepam 10 mg, 2 tab, Route: PO, Drug form: TAB, QID, Dosing Weight 66.364, kg, PRN, Start date: 07/18/12 5:26:00, Duration: 30 day, Stop date: 08/17/12 5:25:00, QID PO No Longer Active [facility] 07/18/2012 [facility] Dilaudid 1.5 mg, 1.5 mL, Route : IV, Drug form: SOLN, Q4H, Dosing Weight 66.364, kg, PRN Pain, Start date: 07/18/12 0:29:00, Stop date: 08/17/12 0:28:00 IV No Longer Active [facility] 07/18/2012 [facility] morphine Sulfate 2 mg, 1 mL, R oute: IVP, 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, Q4H, Dosing Weight 66.364, kg, PRN Pain Score 4-6, Start date: 07/17/12 20:23:00, Duration: 30 day, Stop date: 08/16/12 20:22:00 IVP No Longer Active [facility] 07/18/2012 [facility] Saline Flush 0.9% 5 ml, Route: IVP, Drug Form: INJ, Dosing Weight 66.364, kg, PRN, PRN Line Flush, Start date: 07/17/12 20:23:00, Duration: 30 day, Stop date: 08/16/12 21:22:00 IVP No Longer Active [facility] 07/18/2012 [facility] citalopram 10 mg oral tablet 1 0 mg, 1 tab, PO, Bedtime, 30 tab, Substitution Allowed, TAB PO Active [facility] 07/18/2012 [facility] Flomax 0.4 mg oral capsule 0.4 mg, 1 cap, PO, After Breakfast, 30 cap, Substitution Allowed, CAP PO Active [facility] 07/18/2012 [facility] Bactrim DS oral tablet 1 tab, PO, BID, 6 tab, Substitution Allowed, Maintenance PO Active 07/18/2012 [facility] Benadryl 12.5 mg, Route: IVP, ONCE, Dosing Weight 66.364, kg, Priority: STAT, Start date: 07/17/12 18:05:00, Stop date: 07/17/12 18:05:00 IVP No Longer Active [facility] 07/18/2012 [facility] Zofran 4 mg, Route: IVP, 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, ONCE, Dosing Weight 66.364, kg, PRN Nausea, Priority: STAT, Start date: 07/17/12 17:47:00 IVP No Longer Active [facility] 09/2012 [facility] morphine Sulfate 4 mg, Route: IVP, ONCE, Dosing Weight 66.364, kg, Start date: 07/17/12 17:47:00, Stop date: 07/17/12 17:47:00 IVP No Longer Active [facility] 09/2012 [facility] Saline Flush 0.9% 5 ml, Route: IVP, Drug Form: INJ, Dosing Weight 66.364, kg, PRN, PRN Line Flush, Start date: 07/17/12 15:00:00, Duration: 30 day, Stop date: 08/16/12 15:59:00 IVP No Longer Active [facility] 07/17/2012 [facility] LORAzepam 1 mg, 0.5 mL, Route: IVP, 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, ONCE, Dosing Weight 66.364, kg, Priority: STAT, Start date: 07/17/12 15:00:00, Stop date: 07/17/12 15:00:00 IVP No Longer Active [facility] 07/17/2012 [facility] Ativan 1 mg, Route: IVP, ONCE, Dosing Weight 66.364, kg, Priority: STAT, Start date: 07/16/12 2:47:00, Stop date: 07/16/12 2:47:00 IVP No Longer Active [facility] 08/2012 [facility] pantoprazole 40 mg, Route: IVP , ONCE, Dosing Weight 66.364, kg, For IV push reconstitute with 10 ml 0.9% sodium chloride and push over at least 3 minutes, Priority: STAT, Start date: 07/15/12 23:31:00, Stop date: 07/15/12 23:31:00 IVP No Longer Active [facility] 07/16/2012 [facility] Sodium Chloride 0.9% (Bolus) IV 500 mL 500 mL, Rate: 1,000 ml/hr, Infuse over: 30 minutes, Route: IV, kg, Total Volume: 500, Priority: STAT, Start date: 07/15/12 23:31:00, Duration: 1 doses or times, Stop date: 07/16/12 0:00:00 IV No Longer Active [facility] 07/16/2012 [facility] Saline Flush 0.9% 5 mL, Route: IVP, Drug Form: INJ, Dosing Weight 66.364, kg, PRN, PRN Line Flush, Start date: 07/15/12 23:31:00, Duration: 24 hr, Stop date: 07/16/12 23:30:00 IVP No Longer Active [facility] 07/16/2012 [facility] ondansetron 4 mg, Route: IVP, ONCE, Dosing Weight 66.364, kg, Priority: STAT, Start date: 07/15/12 23:31:00, Stop date: 07/15/12 23:31:00 IVP No Longer Active [facility] 07/16/2012 [facility] hydromorphone 1 mg, Route: IVP , ONCE, Dosing Weight 66.364, kg, Priority: STAT, Start date: 07/15/12 23:31:00, Stop date: 07/15/12 23:31:00 IVP No Longer [facility] 07/16/2012 [facility] levofloxacin 500 mg/100 mL intravenous solution 500 mg, 100 mL, IVPB, [id number], 7 mL, Substitution Allowed, INJ IVPB Active [facility] 07/11/2012 [facility] [place] 5/325 oral tablet 1 tab, PO, Q4H, PRN, 12 tab, for pain, Substitution Allowed, Maintenance, TAB PO Active [facility] 07/11/2012 [facility] [place] 10/325 oral tablet 1 tab , Route: PO, Drug Form: TAB, Dosing Weight 66.818, kg, Q6H, PRN Pain, Start date: 07/11/12 7:18:00, Duration: 30 day, Stop date: 08/10/12 7:17:00 PO No Longer Active [facility] 07/11/2012 [facility] Protonix 40 mg, 1 tab, Route: PO, Drug form: ECTAB, Before Dinner, Dosing Weight 59.091, kg, Start date: 07/10/12 16:30:00, Duration: 30 day, Stop date: 08/08/12 16:30:00 PO No Longer Active Ranem 07/10/2012 [facility] amitriptyline 50 mg, 1 tab, Ro marita: PO, Drug form: TAB, Bedtime, Dosing Weight 66.818, kg, Start date: 07/09/12 21:00:00, Duration: 30 day, Stop date: 08/07/12 21:00:00 PO No Longer Active [facility] 07/10/2012 [facility] Ambien 10 mg, 1 tab, Route: PO , Drug form: TAB, Bedtime, Dosing Weight 66.818, kg, PRN Insomnia, Start date: 07/09/12 17:41:00, Duration: 30 day, Stop date: 08/08/12 17:40:00 PO No Longer Active Ranem 07/09/2012 [facility] Protonix 40 mg, Route: IVP, Dr ug form: INJ, Before Dinner, Dosing Weight 59.091, kg, Start date: 07/09/12 16:30:00, Duration: 30 day, Stop date: 08/07/12 16:30:00 IVP No Longer Active [facility] 07/09/2012 [facility] diazepam 10 mg, 2 tab, Route: PO, Drug form: TAB, Q6H, Dosing Weight 66.818, kg, Start date: 07/09/12 14:57:00, Stop date: 08/08/12 10:00:00 PO No Longer Active [facility] 07/09/2012 [facility] enoxaparin 40 mg, 0.4 mL, Rout e: SUB-Q, 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, [id number], Dosing Weight 59.091, kg, Start date: 07/09/12 12:00:00, Duration: 30 day, Stop date: 08/07/12 13:00:00 SUB-Q No Longer Active [facility] 07/09/2012 [facility] Levaquin 500 mg, 100 mL, Route : IVPB, 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, [id number], Dosing Weight 59.091, kg, Start date: 07/09/12 12:00:00, Duration: 30 day, Stop date: 08/07/12 13:00:00 IVPB No Longer Active [facility] 07/09/2012 [facility] Phenergan + Sodium Chloride 0.9% IV 50 mL 12.5 mg, 0.5 mL, Route: IVPB, Q4H, Dosing Weight 59.091, kg, PRN Nausea & Vomiting, Start date: 07/09/12 11:12:00, Stop date: 08/08/12 11:11:00 IVPB No Longer Active Ranem 07/09/2012 [facility] Dilaudid 1 mg, 1 mL, Route: IV , Drug form: SOLN, Q3H, Dosing Weight 59.091, kg, PRN Pain, Start date: 07/09/12 11:12:00, Duration: 30 day, Stop date: 08/08/12 11:11:00 IV No Longer Active Rahim 07/09/2012 [facility] acetaminophen 650 mg, 2 tab, R oute: PO, Drug form: TAB, Q4H, Dosing Weight 59.091, kg, PRN Pain/Fever, Start date: 07/09/12 11:08:00, Duration: 30 day, Stop date: 08/08/12 11:07:00 PO No Longer Active Rahim 07/09/2012 [facility] NS + KCL 20mEq/L 1000ml (Premix) 1,000 mL 1,000 mL, Rate: 100 ml/hr, Infuse over: 10 hr, Route: IV, kg, Total Volume: 1,000, Start date: 07/09/12 11:08:00, Duration: 30 day, Stop date: 08/08/12 11:07:00 IV No Longer Active Ranem 07/09 [facility] Saline Flush 0.9% 5 ml, Route: IVP, Drug Form: INJ, Dosing Weight 59.091, kg, PRN, PRN Line Flush, Start date: 07/09/12 11:08:00, Duration: 30 day, Stop date: 08/08/12 12:07:00 IVP No Longer Active Ranem 07/09/2012 [facility] temazepam 15 mg, 1 cap, Route: PO, Drug form: CAP, Bedtime, Dosing Weight 59.091, kg, PRN Insomnia, Start date: 07/09/12 11:08:00, Duration: 30 day, Stop date: 08/08/12 11:07:00 PO No Longer Active Rahim 07/09/2012 [facility] docusate 100 mg, 1 cap, Route: PO, Drug form: CAP, BID, Dosing Weight 59.091, kg, PRN Constipation, Start date: 07/09/12 11:08:00, Duration: 30 day, Stop date: 08/08/12 11:07:00 PO No Longer Active Ranem 07/09/2012 [facility] Republic 5/325 oral tablet 1 tab, PO, Q4H, PRN, 12 tab, for pain, Substitution Allowed, Maintenance, TAB PO On Hold Rah im 07/08/2012 [facility] Sodium Chloride 0.9% (Bolus) IV 500 mL, Route: IV, Dosing Weight 59.091, kg, ONCE, Bolus Dose - infuse over 1 hr, STAT, Start date: 07/08/12 2:00:00, Stop date: 07/08/12 2:00:00 IV No Longer Active [facility] 07/08/2012 [facility] Zofran 4 mg, Route: IVP, 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, ONCE, Dosing Weight 59.091, kg, PRN Nausea, Priority: STAT, Start date: 07/08/12 2:00:00 IVP No Longer Active [facility] 06/16 [facility] morphine Sulfate 4 mg, Route: IV, ONCE, Dosing Weight 59.091, kg, Start date: 07/08/12 1:59:00, Stop date: 07/08/12 1:59:00 IV No Longer Active [facility] 06/16 [facility] Ultram 50 mg oral tablet 50 mg , 1 tab, PO, Q4H, PRN, 12 tab, pain, Substitution Allowed PO Active Magdi pradhan 07/07/2012 [facility] Benadryl 25 mg, Route: PO, David g form: CAP, ONCE, Dosing Weight 66.364, kg, Priority: STAT, Start date: 07/07/12 1:11:00, Stop date: 07/07/12 1:11:00 PO No Longer Active [facility] 07/07/2012 [facility] ondansetron 4 mg, 2 mL, Route: IVP, 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, ONCE, Dosing Weight 66.364, kg, Priority: STAT, Start date: 07/07/12 0:05:00, Stop date: 07/07/12 0:05:00 IVP No Longer Active [facility] 07/07/2012 [facility] Sodium Chloride 0.9% (Bolus) IV 500 mL, 1000 ml/hr, Route: IV, Drug Form: INJ, Dosing Weight 66.364, kg, ONCE, Bolus at 1,000 ml/hr, STAT, Start date: 07/07/12 0:05:00, Stop date: 07/07/12 0:05:00 IV No Longer Active [facility] 07/07/2012 [facility] Saline Flush 0.9% 5 mL, Route: IVP, Drug Form: INJ, Dosing Weight 66.364, kg, PRN, PRN Line Flush, Start date: 07/07/12 0:05:00, Duration: 24 hr, Stop date: 07/08/12 0:04:00 IVP No Longer Active [facility] 07/07/2012 [facility] morphine Sulfate 4 mg, 2 mL, R oute: IVP, 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, ONCE, Dosing Weight 66.364, kg, Priority: STAT, Start date: 07/07/12 0:05:00, Stop date: 07/07/12 0:05:00 IVP No Longer Active [facility] 07/07/2012 [facility] droperidol 1.25 mg, Route: IVP , ONCE, Dosing Weight 65, kg, PRN Nausea & Vomiting, Start date: 05/31/12 9:20:00 IVP No Longer Active [facility] 05/31/2012 [facility] Reglan 10 mg, Route: IVP, ONCE , Dosing Weight 65, kg, Priority: STAT, Start date: 05/31/12 8:31:00, Stop date: 05/31/12 8:31:00 IVP No Longer Active [facility] Zofran 4 mg, 2 mL, Route: IVP, 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, ONCE, Dosing Weight 65, kg, Priority: STAT, Start date: 05/31/12 7:57:00, Stop date: 05/31/12 7:57:00 IVP No Longer Active [facility] 05/31/2012 [facility] Sodium Chloride 0.9% (Bolus) IV 1,000 mL, 1000 ml/hr, Route: IV, Drug Form: INJ, Dosing Weight 65, kg, ONCE, Bolus Dose. Infuse over 1 hour., STAT, Start date: 05/31/12 7:57:00, Stop date: 05/31/12 7:57:00 IV No Longer Active [facility] Saline Flush 0.9% 5 ml, Route: IVP, Drug Form: INJ, Dosing Weight 65, kg, PRN, PRN Line Flush, Start date: 05/31/12 7:57:00, Duration: 30 day, Stop date: 06/30/12 7:56:00 IVP No Longer Active Herminia 05/31/2012 [facility] Esgic 1 tab, Route: PO, Drug F orm: TAB, ONCE, Start date: 04/08/12 17:54:00, Stop date: 04/08/12 17:54:00 PO No Longer Active BlairHaley 04/08/2012 [facility] Midrin 1 tab, Route: PO, Drug Form: CAP, Dosing Weight 61.818, kg, ONCE, Start date: 04/08/12 17:31:00, Stop date: 04/08/12 17:31:00 PO No Longer Active Lon 04/08/2012 [facility] Zofran ODT 4 mg oral tablet, disintegrating 4 mg, 1 tab, PO, BID, PRN, Dissolve tab under tongue, 10 tab, Nausea and Vomiting, Substitution AllowedDissolve tab under tongue PO Active Rodrick Haley 04/08/2012 [facility] Zofran 4 mg, Route: IVP, 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, ONCE, Dosing Weight 61.818, kg, Priority: STAT, Start date: 04/08/12 17:04:00, Stop date: 04/08/12 17:04:00 IVP No Longer Active Lon 04/08/2012 [facility] Motrin 800 mg, Route: PO, Drug form: TAB, ONCE, Dosing Weight 61.818, kg, Priority: STAT, Start date: 04/08/12 16:27:00, Stop date: 04/08/12 16:27:00 PO No Longer Active Lon 04/08/2012 [facility] EpiPen Auto-Injector 0.3 mg injectable kit 0.3 mg, IM, ONCE, 1 kit, Substitution Allowed, SOLN IM Active [facility] 02/17/2012 [facility] epinephrine 1 mg/mL injectable solution 0.3 mg, Route: IM, ONCE, Dosing Weight 61.818, kg, Priority: STAT, Start date: 02/16/12 16:21:00, Stop date: 02/16/12 16:21:00 IM No Longer Active [facility] 02/16/2012 [facility] diphenhydrAMINE 25 mg, Route: IVP, ONCE, Dosing Weight 61.818, kg, Priority: STAT, Start date: 02/16/12 16:13:00, Stop date: 02/16/12 16:13:00 IVP No Longer Active [facility] 02/16/2012 [facility] LORAzepam 1 mg, Route: PO, ONC E, Dosing Weight 61.818, kg, Priority: STAT, Start date: 02/16/12 16:13:00, Stop date: 02/16/12 16:13:00 PO No Longer Active [facility] 08/2011 [facility] epinephrine topical 1:1000 solution 0.3 mL, Route: IM, ONCE, Start date: 02/16/12 16:13:00, Stop date: 02/16/12 16:13:00 IM No Longer Active [facility] 02/16/2012 [facility] famotidine 20 mg, Route: IVP, ONCE, Dosing Weight 61.818, kg, Priority: STAT, Start date: 02/16/12 16:13:00, Stop date: 02/16/12 16:13:00 IVP No Longer Active [facility] 02/16/2012 [facility] NS 500 mL 500 mL, Rate: 1,000 ml/hr, Infuse over: 0.5 hr, Route: IV, Dosing Weight 61.818 kg, Total Volume: 500, Start date: 02/16/12 16:12:00, Duration: 1 doses or times, Stop date: 02/16/12 16:41:00, Bolus D oseBolus Dose IV No Longer Active [facility] 02/16/2012 [facility] Toradol 30 mg/mL injectable solution 30 mg, Route: IV, 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, ONCE, Dosing Weight 62.727, kg, Priority: STAT, Start date: 01/25/12 0:13:00, Stop date: 01/25/12 0:13:00 IV No Longer Active Souman 01/25/2012 [facility] Sodium Chloride 0.9% (Bolus) IV 1000 mL 1,000 mL, Rate: 1,000 ml/hr, Infuse over: 1 hr, Route: IV, kg, Total Volume: 1,000, Bolus Dose, Priority: STAT, Start date: 01/24/12 21:58:00, Duration: 1 doses or times, Stop date: 01/24/12 22:57:00 IV No Longer Active Souman 01/25/2012 [facility] MiraLax 17 gm, 1 pkt, Route: P O, Drug form: PWDR, BID, kg, Start date: 01/02/12 17:00:00, Duration: 30 day, Stop date: 02/01/12 9:00:00 PO No Longer Active Jim 01/02/2012 [facility] vitamin A & D topical 1 appl, Route: TOP, QID, Drug form: OINT, Start date: 01/01/12 21:00:00, Duration: 30 day, Stop date: 01/31/12 17:00:00 TOP No Longer Active Rahim 01/02/2012 [facility] GoLYTELY 4,000 ml, Route: PO, Drug Form: PDR/REC, kg, ONCE, Start date: 01/01/12 17:17:00, Duration: 1 doses or times, Stop date: 01/01/12 17:17:00 PO No Longer Active Jim 01/01/2012 [facility] Zofran 4 mg, 2 mL, Route: IVP, 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, Q6H, kg, PRN Nausea, Start date: 01/01/12 14:09:00, Duration: 30 day, Stop date: 01/31/12 14:08:00 IVP No Longer Active Jim 01/01/2012 [facility] Ativan 1 mg, 0.5 mL, Route: IV , 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, Q4H, kg, PRN Anxiety, Priority: NOW, Start date: 01/01/12 11:02:00, Duration: 30 day, Stop date: 01/31/12 11:01:00 IV No Longer Active Rahim 01/01/2012 [facility] Pristiq 50 mg oral tablet, extended release 50 mg, 1 tab, Route: PO, Drug form: ERTAB, Daily, Dosing Weight 66.818, kg, Start date: 01/01/12 9:00:00, Duration: 30 day, Stop date: 01/30/12 9:00:00 PO No Longer Active Rahim 01/01/2012 [facility] Protonix 40 mg, Route: IVP, Dr antonio form: INJ, Daily, kg, Patient is NPO, Start date: 01/01/12 9:00:00, Duration: 30 day, Stop date: 01/30/12 9:00:00 IVP No Longer Active [facility] 01/01/2012 [facility] Pt's own med DESVENLAFAXINE Pt's own med Pt's own med DESVENLAFAXINE Pt's own med, 50 mg, Drug form: MISC, Route: PO, Daily, 01/01/12 9:00:00, Duration: 30 day, Stop date: 01/30/12 9:00:00 PO No Longer Active Ranem 12/31 [facility] Saline Flush 0.9% 5 ml, Route: IVP, Drug Form: INJ, kg, PRN, PRN Line Flush, Start date: 01/01/12 8:33:00, Duration: 30 day, Stop date: 01/31/12 8:32:00 IVP No Longer Active [facility] 01/01/2012 [facility] Sodium Chloride 0.45% IV 1,000 mL 1,000 mL, Rate: 125 ml/hr, Infuse over: 8 hr, Route: IV, Dosing Weight 66.818 kg, Total Volume: 1,000, Start date: 01/01/12 8:33:00, Duration: 30 day, Stop date: 01/31/12 8:32:00 IV No Longer Active [facility] 01/01/2012 [facility] ondansetron 4 mg, 2 mL, Route: IVP, 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, ONCE, kg, PRN Nausea & Vomiting, Start date: 01/01/12 8:33:00 IVP No Longer Active [facility] 01/01/2012 [facility] Esgic 1 tab, Route: PO, Drug F orm: TAB, Q4H, PRN Other - See Comment, Start date: 01/01/12 0:36:00, Duration: 30 day, Stop date: 01/31/12 0:35:00 [facility] 01/01[facility]2012 [facility] temazepam 15 mg, 1 cap, Route: PO, Drug form: CAP, Bedtime, kg, Start date: 12/31/11 23:59:00, Duration: 30 day, Stop date: 01/30/12 21:00:00 PO No Longer Active Ranem 01/01/2012 [facility] nitroglycerin 0.4 mg sublingual tablet 0.4 mg, 1 tab, Route: SL, Drug form: TAB, Q5Min, PRN Chest Pain, Start date: 12/31/11 23:44:00, Duration: 30 day, Stop date: 01/30/12 23:43:00 SL No Longer Active Ranem 01/01/2012 [facility] atropine 0.5 mg, 5 mL, Route: IVP, 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, PRN, PRN Bradycardia, Start date: 12/31/11 23:43:00, Duration: 30 day, Stop date: 01/30/12 23:42:00 IVP No Longer Active Ranem 01/01/2012 [facility] trazodone 150 mg, 3 tab, Route : PO, Drug form: TAB, Bedtime, kg, PRN Sleep, Start date: 12/31/11 21:29:00, Duration: 30 day, Stop date: 01/30/12 21:28:00 PO No Longer Active [facility] 01/01/2012 [facility] NS + KCL 20mEq/L 1000ml (Premix) 1,000 mL 1,000 mL, Rate: 125 ml/hr, Infuse over: 8 hr, Route: IV, Dosing Weight 66.818 kg, Total Volume: 1,000, Start date: 12/31/11 21:27:00, Duration: 30 day, Stop date: 01/30/12 21:26:00 IV No Longer Active [facility] 01/01/2012 [facility] trazodone 150 mg oral tablet 1 50 mg, 1 tab, PO, Bedtime, PRN, 30 tab, insomnia (for waking up after taking other sleep meds), Substitution Allowed, TAB PO Active [facility] 01/01/2012 [facility] temazepam 15 mg oral capsule 1 5 mg, 1 cap, PO, Bedtime, Substitution Allowed, with zolpidem for PTSDwith zolpidem for PTSD PO Active [facility] 01/01/2012 [facility] zolpidem 10 mg oral tablet 20 mg, 2 tab, PO, Bedtime, Substitution Allowed, with temazepam for PTSDwith temazepam for PTSD PO Active 01/01/2012 [facility] Fioricet 1 tab, Route: PO, David g Form: TAB, kg, ONCE, Start date: 12/31/11 19:57:00, Stop date: 12/31/11 19:57:00 PO No Longer Active [facility] 01/01/2012 [facility] Zofran 4 mg, Route: PO, ONCE, Dosing Weight 66.818, kg, Start date: 12/31/11 19:27:00, Stop date: 12/31/11 19:27:00 PO No Longer Active [facility] 01/01/2012 [facility] acetaminophen 975 mg, 3 tab, R oute: PO, Drug form: TAB, ONCE, kg, Priority: STAT, Start date: 12/31/11 18:21:00, Stop date: 12/31/11 18:21:00 PO No Longer Active [facility] 12/31/2011 [facility] Sodium Chloride 0.9% (Bolus) IV 1,000 mL 1,000 mL, Rate: 1,000 ml/hr, Infuse over: 1 hr, Route: IV, Dosing Weight 66.818 kg, Total Volume: 1,000, Bolus Dose, Priority: STAT, Start date: 12/31/11 18:20:00, Duration: 1 doses or times, Stop date: 12/31/11 19:19:00 IV No Longer Active [facility] 12/31/2011 [facility] Zofran 4 mg, Route: IVP, 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, ONCE, Dosing Weight 66.875, kg, Priority: STAT, Start date: 12/31/11 0:45:00, Stop date: 12/31/11 0:45:00 IVP No Longer Active [facility] 12/31/2011 [facility] morphine Sulfate 2 mg, Route: IVP, ONCE, Dosing Weight 66.875, kg, Start date: 12/31/11 0:13:00, Stop date: 12/31/11 0:13:00 IVP No Longer Active [facility] 12/13 [facility] Saline Flush 0.9% 5 ml, Route: IVP, Drug Form: INJ, kg, PRN, PRN Line Flush, Start date: 12/30/11 23:07:00, Duration: 24 hr, Stop date: 12/31/11 23:06:00 IVP No Longer Active Mauriciorehan 12/31/2011 [facility] NS (Bolus) IV 1,000 mL 1,000 m L, Rate: 1,000 ml/hr, Infuse over: 1 hr, Route: IV, Dosing Weight 63 kg, Total Volume: 1,000, Priority: STAT, Start date: 10/16/11 1:26:00, Duration: 1 doses or times, Stop date: 10/16/11 2:25:00, Bolus DoseBolus Dose IV No Longer Active [facility] 10/16/2011 [facility] Fioricet with Codeine oral capsule 2 cap, PO, Q4H, PRN, 20 cap, for headache, Substitution Allowed, Maintenance, CAP PO Active [facility] 10/10/2011 [facility] Pristiq 50 mg oral tablet, extended release 50 mg, 1 tab, Route: PO, Drug form: ERTAB, Daily, Start date: 10/10/11 9:00:00, Duration: 30 day, Stop date: 11/08/11 9:00:00 PO No Longer Active [facility] 10/10/2011 [facility] Pristiq 50mg Pristiq 50mg, (pt 's own med), Drug form: MISC, Route: PO, Daily, 10/10/11 9:00:00, Duration: 30 day, Stop date: 11/08/11 9:00:00 PO No Longer Active [facility] 10/10/2011 [facility] Benadryl 25 mg, 0.5 mL, Route: IV, 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, QID, PRN as needed for allergy symptoms, Start date: 10/09/11 19:07:00, Duration: 30 day, Stop date: 11/08/11 19:06:00 IV No Longer Active [facility] 10/10/2011 [facility] diazepam 10 mg, 1 tab, Route: PO, Drug form: TAB, QID, Start date: 10/09/11 17:00:00, Duration: 30 day, Stop date: 11/08/11 13:00:00 PO No Longer Active [facility] 2011 [facility] Fioricet with Codeine Fioricet with Codeine, (pt's own med), Drug form: MISC, Route: PO, Q4H, PRN Pain, 10/09/11 16:33:00, Duration: 30 day, Stop date: 11/08/11 16:32:00 PO No Longer Active Fang 10/09/2011 [facility] Fioricet 1 tab, Route: PO, David g Form: TAB, Q4H, PRN Headache, Start date: 10/09/11 16:29:00, Duration: 30 day, Stop date: 11/08/11 16:28:00 PO No Longer Active Fang 10/09/2011 [facility] Fioricet with Codeine 1 cap, R oute: PO, Drug Form: CAP, Q4H, PRN Headache, Start date: 10/09/11 16:28:00, Duration: 30 day, Stop date: 11/08/11 16:27:00 PO No Longer Active Fan 10/09/2011 [facility] Ambien 20 mg, 2 tab, Route: PO , Drug form: TAB, Bedtime, PRN Sleep, Start date: 10/09/11 15:54:00, Duration: 30 day, Stop date: 11/08/11 15:53:00 PO No Longer Active [facility] 10/09/2011 [facility] Motrin 600 mg, 3 tab, Route: P O, Drug form: TAB, QID, PRN Pain, Start date: 10/09/11 15:27:00, Duration: 30 day, Stop date: 11/08/11 15:26:00 PO No Longer Active [facility] 10/09/2011 [facility] trazodone 50 mg oral tablet 50 mg, 1 tab, Route: PO, Drug form: TAB, Bedtime, PRN Anxiety, Start date: 10/09/11 15:26:00, Duration: 30 day, Stop date: 11/08/11 15:25:00 PO No Longer Active Fang 10/09/2011 [facility] Ambien CR 25 mg, Route: PO, Dr ug form: ERTAB, Bedtime, PRN as needed for sleep, Start date: 10/09/11 15:26:00, Duration: 30 day, Stop date: 11/08/11 15:25:00 PO No Longer Active [facility] 10/09/2011 [facility] Tylenol 650 mg, 2 tab, Route: PO, Drug form: TAB, Q6H, PRN Pain, Start date: 10/09/11 12:08:00, Duration: 30 day, Stop date: 11/08/11 12:07:00 PO No Longer Active [facility] 10/09/2011 [facility] Saline Flush 0.9% 5 ml, Route: IVP, Drug Form: INJ, Q12H, Start date: 10/09/11 9:00:00, Duration: 30 day, Stop date: 11/07/11 21:00:00 IVP No Longer Active [facility] 10/09/2011 [facility] Benadryl 50 mg, Route: IVP, ON CE, benadryl 50mg ivp x1 dose now, Start date: 10/09/11 5:50:00, Stop date: 10/09/11 5:50:00 IVP No Longer Active [facility] 2011 [facility] Benadryl 50 mg, 1 mL, Route: I TURN DOWN MAN, 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, ONCE, PRN Itching, Start date: 10/09/11 5:46:00 IVP No Longer Active [facility] 10/09/2011 [facility] trazodone 50 mg oral tablet 50 mg, 1 tab, PO, PRN, as needed for insomnia if ambien does not work, Substitution Allowed, TAB PO Active [facility] 10/09/2011 [facility] Ambien CR 12.5 mg oral tablet, extended release 25 mg, 2 tab, PO, Bedtime, PRN, for sleep, Substitution Allowed, ERTAB PO Active [facility] 10/09/2011 [facility] nitroglycerin 0.4 mg sublingual tablet 0.4 mg, 1 tab, Route: SL, Drug form: TAB, Q5Min, PRN Chest Pain, Start date: 10/09/11 4:49:00, Duration: 30 day, Stop date: 11/08/11 4:48:00 SL No Longer Active [facility] 10/09/2011 [facility] atropine 0.5 mg, 5 mL, Route: IVP, 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, PRN, PRN Bradycardia, Start date: 10/09/11 4:48:00, Duration: 30 day, Stop date: 11/08/11 4:47:00 IVP No Longer Active [facility] 10/09/2011 [facility] Saline Flush 0.9% 5 ml, Route: IVP, Drug Form: INJ, PRN, PRN Line Flush, Start date: 10/09/11 4:44:00, Duration: 30 day, Stop date: 11/08/11 4:43:00 IVP No Longer Active [facility] 10/09/2011 [facility] acetaminophen-hydrocodone 325 mg-5 mg oral tablet 1 tab, Route: PO, ONCE, STAT, Start date: 10/09/11 3:40:00, Stop date: 10/09/11 3:40:00 PO No Longer Active [facility] 10/09/2011 [facility] potassium chloride 40 mEq, Rou te: PO, Drug form: ERTAB, ONCE, Priority: STAT, Start date: 10/09/11 3:33:00, Stop date: 10/09/11 3:33:00 PO No Longer Active [facility] 1/2NS 1,000 mL 1,000 mL, Rate: 125 ml/hr, Infuse over: 8 hr, Route: IV, Dosing Weight 62.727 kg, Total Volume: 1,000, Start date: 10/09/11 2:53:00, Duration: 30 day, Stop date: 11/08/11 2:52:00 IV No Longer Active [facility] 10/09/2011 [facility] influenza virus vaccine, inactivated 0.5 ml, Route: IM, Drug Form: INJ, Start date: 03/31/11 9:00:00, Stop date: 03/31/11 9:00:00 Inactive SYSTEM 03/31/2011 [facility], MICHAEL Dunn, [facility] Allergies, Adverse Reactions, Alerts Substance Category Reaction Severity Reaction type Status Date Reported Comments Source aspirin Assertion Drug allergy Active [facility] Augmentin Assertion Drug allergy Active [facility] Food MSG Assertion Drug allergy Active [facility] Imitrex Assertion Drug allergy Active [facility] iodine Assertion Drug allergy Active [facility] Iron (Ferrous Sulfate) drug al lergy Allergy Active [facility] Paper Tape Assertion Drug allergy Active [facility] shellfish Assertion Drug allergy Active [facility] Latex drug allergy Allergy Act jose maria [facility] Immunizations Immunization Date Given Site Status Last Updated Comments Source influenza virus vaccine, inactivated 07/18/2012 completed Altagracia [facility] influenza virus vaccine, inactivated 07/18/2012 Right deltoid completed [facility] virus [facility], inactivated 03/31/2011 Not Given Artem [facility], MICHAEL Dunn,[facility] Hx pneumococcal vaccine 2010 completed Violetta fisher [facility], Ruma Ordoñezann,[facility] Hx pneumococcal vaccine 2010 completed Violetta natalia [facility] Order Name Results Value Reference Range Date Interpretation Comments Source HEMATOLOGY Sed Rate 8 0 - 20 07/13/2016 [facility] IMMUNOLOGY C-REACTIVE PROTEIN <2.9 <=2.9 mg/L 07/13/2016 [facility] MCHC 33.4 32.0 - 36.0 07/13/2016 [facility] MPV 9.1 7.4 - 10.4 07/13/2016 [facility] RDW 15.9 11.5 - 14.5 07/13/2016 [facility] Platelet 271 133 - 450 07/13/2016 [facility] WBC 6.0 3.7 - 10.4 07/13/2016 [facility] MCH 30.8 27.0 - 31.0 07/13/2016 [facility] Hct 35.7 36.0 - 48.0 07/13/2016 [facility] MCV 92.3 80.0 - 98.0 07/13/2016 [facility] Hgb 11.9 12.0 - 16.0 07/13/2016 [facility] RBC 3.86 4.20 - 5.40 07/13/2016 [facility] Basophils # 0.1 0.0 - 0.2 07/13/2016 [facility] HEMATOLOGY Basophils 0.8 0.0 - 1.0 07/13/2016 [facility] Monocytes 8.8 2.0 - 12.0 07/13/2016 [facility] Eosinophils 8.6 0.0 - 4.0 07/13/2016 [facility] HEMATOLOGY Segs 38.1 45.0 - 75.0 07/13/2016 [facility] HEMATOLOGY Lymphocytes 43.7 20.0 - 40.0 07/13/2016 [facility] HEMATOLOGY Eosinophils # 0.5 0.0 - 0.5 07/13/2016 [facility] Monocytes # 0.5 0.0 - 0.8 07/13/2016 [facility] Lymphocytes # 2.6 1.0 - 5.5 07/13/2016 [facility] HEMATOLOGY Segs-Bands # 2.3 1.5 - 8.1 07/13/2016 [facility] CHEM PANEL Lipase Lvl 171 73 - 393 07/13/2016 [facility] CHEM PANEL eGFR 107 07/13/2016 Result Comment: The eGFR is calculated using the [...] from the National Kidney Disease Education Program (NKDEP) which additionally recommends that when the eGFR is used in patients with extremes of body mass index for purposes of drug dosing, the eGFR should be multiplied by the estimated BMI. [facility] CHEM PANEL AST 18 0 - 37 07/13/2016 [facility] CHEM PANEL Calcium Lvl 8.6 8.5 - 10.5 07/13/2016 [facility] CHEM PANEL Alk Phos 86 39 - 136 07/13/2016 [facility] CHEM PANEL Albumin Lvl 3.7 3.5 - 5.0 07/13/2016 [facility] CHEM PANEL ALT 64 0 - 65 07/13/2016 [facility] CHEM PANEL CO2 29 24 - 32 07/13/2016 [facility] CHEM PANEL Total Protein 6.7 6.4 - 8.4 07/13/2016 [facility] CHEM PANEL AGAP 10.3 10.0 - 20.0 07/13/2016 [facility] CHEM PANEL Bili Total <0.1 0.2 - 1.3 07/13/2016 [facility] CHEM PANEL B/C Ratio 23 6 - 25 07/13/2016 [facility] CHEM PANEL Globulin 3.0 2.7 - 4.2 07/13/2016 [facility] CHEM PANEL A/G Ratio 1.2 0.7 - 1.6 07/13/2016 [facility] CHEM PANEL Chloride Lvl 103 95 - 109 07/13/2016 [facility] CHEM PANEL Potassium Lvl 4.3 3.5 - 5.1 07/13/2016 [facility] CHEM PANEL Sodium Lvl 138 135 - 145 07/13/2016 [facility] CHEM PANEL Creatinine Lvl 0.71 0.50 - 1.40 07/13/2016 [facility] CHEM PANEL BUN 16 7 - 22 07/13/2016 [facility] CHEM PANEL Glucose Lvl 87 70 - 99 07/13/2016 [facility] URINE AND STOOL UA Turbidity Clear (07/13/16 4:47 AM) Clear 07/13/2016 [facility] URINE AND STOOL UA Color Yellow *NA* (07/13/16 4:47 AM) Yellow 07/13/2016 [facility] URINE AND STOOL UA Glucose Negative mg/dL Negative mg/dL 07/13/[address] [facility] [address] URINE AND STOOL UA Protein Negative mg/dL Negative mg/dL 07/13/[address] [facility] [address] URINE AND STOOL UA pH 5.0 5.0 - 8.0 07/13/2016 [facility] URINE AND STOOL UA Ketones Negative mg/dL Negative mg/dL 07/13/[address] [facility] [address] URINE AND STOOL UA Bili Negative *NA* (07/13/16 4:47 AM) Negative 07/13/2016 [facility] URINE AND STOOL UA Hyal Cast 1 0 - 2 07/13/2016 [facility] URINE AND STOOL UA Sq Epi Occasional /LPF Few /LPF 07/13/2016 [facility] URINE AND STOOL UA Leuk Est Small *ABN* (07/13/16 4:47 AM) Negative 07/13/2016 [facility] URINE AND STOOL UA Nitrite Negative (07/13/16 4:47 AM) Negative 07/13/2016 [facility] URINE AND STOOL UA WBC 5 0 - 5 07/13/2016 [facility] URINE AND STOOL UA RBC 3 0 - 2 07/13/2016 [facility] URINE AND STOOL UA Spec Grav 1.012 <=1.030 07/13/2016 [facility] URINE AND STOOL UA Urobilinogen <=1.0 mg/dL 0.1 - 1.0 07/13/2016 [facility] URINE AND STOOL UA Blood Negative (07/13/16 4:47 AM) Negative 07/13/2016 [facility] URINE CHEM U Preg Negat jose maria (07/13/16 4:47 AM) Negative 07/13/2016 [facility] HEMATOLOGY RDW 16.4 11.5 - 14.5 05/10/2016 [facility] HEMATOLOGY MPV 8.6 7.4 - 10.4 05/10/2016 [facility] HEMATOLOGY Platelet 304 133 - 450 05/10/2016 [facility] MCHC 33.0 32.0 - 36.0 05/10/2016 [facility] MCH 29.9 27.0 - 31.0 05/10/2016 [facility] HEMATOLOGY MCV 90.7 80.0 - 98.0 05/10/2016 [facility] HEMATOLOGY Hct 28.2 36.0 - 48.0 05/10/2016 [facility] HEMATOLOGY Hgb 9.3 12.0 - 16.0 05/10/2016 [facility] HEMATOLOGY RBC 3.10 4.20 - 5.40 05/10/2016 [facility] HEMATOLOGY WBC 10.2 3.7 - 10.4 05/10/2016 [facility] HEMATOLOGY Eosinophils 1.2 0.0 - 4.0 05/10/2016 [facility] HEMATOLOGY Basophils 0.7 0.0 - 1.0 05/10/2016 [facility] HEMATOLOGY Lymphocytes # 2.0 1.0 - 5.5 05/10/2016 [facility] HEMATOLOGY Segs-Bands # 7.2 1.5 - 8.1 05/10/2016 [facility] HEMATOLOGY Segs 70.1 45.0 - 75.0 05/10/2016 [facility] HEMATOLOGY Monocytes 8.1 2.0 - 12.0 05/10/2016 [facility] HEMATOLOGY Lymphocytes 19.9 20.0 - 40.0 05/10/2016 [facility] HEMATOLOGY Monocytes # 0.8 0.0 - 0.8 05/10/2016 [facility] HEMATOLOGY Basophils # 0.1 0.0 - 0.2 05/10/2016 [facility] HEMATOLOGY Eosinophils # 0.1 0.0 - 0.5 05/10/2016 [facility] CHEM PANEL A/G Ratio 1.1 0.7 - 1.6 05/05/2016 [facility] CHEM PANEL Globulin 2.6 2.7 - 4.2 05/05/2016 [facility] CHEM PANEL AGAP 11.8 10.0 - 20.0 05/05/2016 [facility] CHEM PANEL B/C Ratio 12 6 - 25 05/05/2016 [facility] CHEM PANEL eGFR 111 05/05/2016 Result Comment: The eGFR is calculated using the [...] from the National Kidney Disease Education Program (NKDEP) which additionally recommends that when the eGFR is used in patients with extremes of body mass index for purposes of drug dosing, the eGFR should be multiplied by the estimated BMI. [facility] CHEM PANEL AST 8 0 - 37 05/05/2016 [facility] CHEM PANEL Bili Total 0.1 0.2 - 1.3 05/05/2016 [facility] CHEM PANEL Alk Phos 65 39 - 136 05/05/2016 [facility] CHEM PANEL ALT 43 0 - 65 05/05/2016 [facility] CHEM PANEL Total Protein 5.4 6.4 - 8.4 05/05/2016 [facility] CHEM PANEL Albumin Lvl 2.8 3.5 - 5.0 05/05/2016 [facility] CHEM PANEL Chloride Lvl 105 95 - 109 05/05/2016 [facility] CHEM PANEL CO2 29 24 - 32 05/05/2016 [facility] CHEM PANEL Calcium Lvl 8.0 8.5 - 10.5 05/05/2016 [facility] CHEM PANEL Potassium Lvl 3.8 3.5 - 5.1 05/05/2016 [facility] CHEM PANEL Sodium Lvl 142 135 - 145 05/05/2016 [facility] CHEM PANEL BUN 8 7 - 22 05/05/2016 [facility] CHEM PANEL Creatinine Lvl 0.66 0.50 - 1.40 05/05/2016 [facility] CHEM PANEL Glucose Lvl 76 70 - 99 05/05/2016 [facility] HEMATOLOGY Segs 47.1 45.0 - 75.0 05/05/2016 [facility] HEMATOLOGY Lymphocytes 38.2 20.0 - 40.0 05/05/2016 [facility] HEMATOLOGY Lymphocytes # 2.0 1.0 - 5.5 05/05/2016 [facility] HEMATOLOGY Monocytes # 0.4 0.0 - 0.8 05/05/2016 [facility] HEMATOLOGY Segs-Bands # 2.5 1.5 - 8.1 05/05/2016 [facility] HEMATOLOGY Eosinophils # 0.4 0.0 - 0.5 05/05/2016 [facility] Monocytes 7.0 2.0 - 12.0 05/05/2016 [facility] HEMATOLOGY Basophils 0.9 0.0 - 1.0 05/05/2016 [facility] Eosinophils 6.8 0.0 - 4.0 05/05/2016 [facility] MCH 29.5 27.0 - 31.0 05/05/2016 [facility] Hct 24.6 36.0 - 48.0 05/05/2016 [facility] MCV 90.3 80.0 - 98.0 05/05/2016 [facility] RBC 2.73 4.20 - 5.40 05/05/2016 [facility] Hgb 8.1 12.0 - 16.0 05/05/2016 [facility] RDW 15.8 11.5 - 14.5 05/05/2016 [facility] MCHC 32.7 32.0 - 36.0 05/05/2016 [facility] MPV 8.8 7.4 - 10.4 05/05/2016 [facility] Platelet 330 133 - 450 05/05/2016 [facility] WBC 5.3 3.7 - 10.4 05/05/2016 [facility] PTT 28.5 22.9 - 35.8 04/30/2016 [facility] INR 0.93 0.85 - 1.17 04/30/2016 [facility] PT 12.7 12.0 - 14.7 04/30/2016 [facility] CHEM PANEL Lipase Lvl 172 73 - 393 04/30/2016 [facility] CHEM PANEL eGFR 102 04/30/2016 Result Comment: The eGFR is calculated using the [...] from the National Kidney Disease Education Program (NKDEP) which additionally recommends that when the eGFR is used in patients with extremes of body mass index for purposes of drug dosing, the eGFR should be multiplied by the estimated BMI. [facility] CHEM PANEL Alk Phos 64 39 - 136 04/30/2016 [facility] CHEM PANEL Bili Total <0.1 0.2 - 1.3 04/30/2016 [facility] CHEM PANEL AST 20 0 - 37 04/30/2016 [facility] CHEM PANEL Calcium Lvl 8.0 8.5 - 10.5 04/30/2016 [facility] CHEM PANEL CO2 28 24 - 32 04/30/2016 [facility] CHEM PANEL Chloride Lvl 103 95 - 109 04/30/2016 [facility] CHEM PANEL Potassium Lvl 4.1 3.5 - 5.1 04/30/2016 [facility] CHEM PANEL ALT 56 0 - 65 04/30/2016 [facility] CHEM PANEL Albumin Lvl 3.1 3.5 - 5.0 04/30/2016 [facility] CHEM PANEL Total Protein 6.1 6.4 - 8.4 04/30/2016 [facility] CHEM PANEL Sodium Lvl 139 135 - 145 04/30/2016 [facility] CHEM PANEL Creatinine Lvl 0.74 0.50 - 1.40 04/30/2016 [facility] CHEM PANEL BUN 19 7 - 22 04/30/2016 [facility] CHEM PANEL Glucose Lvl 78 70 - 99 04/30/2016 [facility] CHEM PANEL AGAP 12.1 10.0 - 20.0 04/30/2016 [facility] CHEM PANEL B/C Ratio 26 6 - 25 04/30/2016 [facility] CHEM PANEL Globulin 3.0 2.7 - 4.2 04/30/2016 [facility] CHEM PANEL A/G Ratio 1.0 0.7 - 1.6 04/30/2016 [facility] ENDOCRINOLOGY hCG Tot 2 04/30/2016 [facility] HEMATOLOGY Basophils # 0.1 0.0 - 0.2 04/30/2016 [facility] HEMATOLOGY Eosinophils # 0.2 0.0 - 0.5 04/30/2016 [facility] HEMATOLOGY Monocytes # 0.6 0.0 - 0.8 04/30/2016 [facility] HEMATOLOGY Lymphocytes # 2.0 1.0 - 5.5 04/30/2016 [facility] HEMATOLOGY Lymphocytes 31.6 20.0 - 40.0 04/30/2016 [facility] HEMATOLOGY Eosinophils 3.4 0.0 - 4.0 04/30/2016 [facility] HEMATOLOGY Monocytes 9.3 2.0 - 12.0 04/30/2016 [facility] HEMATOLOGY Segs-Bands # 3.5 1.5 - 8.1 04/30/2016 [facility] HEMATOLOGY Basophils 1.2 0.0 - 1.0 04/30/2016 [facility] HEMATOLOGY Segs 54.5 45.0 - 75.0 04/30/2016 [facility] HEMATOLOGY RBC 3.30 4.20 - 5.40 04/30/2016 [facility] HEMATOLOGY WBC 6.4 3.7 - 10.4 04/30/2016 [facility] HEMATOLOGY Hct 29.9 36.0 - 48.0 04/30/2016 [facility] HEMATOLOGY MCV 90.6 80.0 - 98.0 04/30/2016 [facility] HEMATOLOGY Hgb 9.8 12.0 - 16.0 04/30/2016 [facility] HEMATOLOGY MPV 8.5 7.4 - 10.4 04/30/2016 [facility] HEMATOLOGY Platelet 391 133 - 450 04/30/2016 [facility] HEMATOLOGY RDW 15.6 11.5 - 14.5 04/30/2016 [facility] MCHC 32.9 32.0 - 36.0 04/30/2016 [facility] MCH 29.8 27.0 - 31.0 04/30/2016 [facility] URINE AND STOOL UA Leuk Est Trace *ABN* (04/29/16 8:56 PM) Negative 04/30/2016 [facility] URINE AND STOOL UA Bacteria Occasional /HPF None Seen /HPF 04/30/[address] [facility] [address] URINE AND STOOL UA RBC 1 0 - 2 04/30/2016 [facility] URINE AND STOOL UA Amorph Adrianne Few /HPF None Seen /HPF 04/30/[address] [facility] [address] URINE AND STOOL UA WBC 5 0 - 5 04/30/2016 [facility] URINE AND STOOL UA Sq Epi None Seen 04/30/2016 [facility] URINE AND STOOL UA Urobilinogen <=1.0 mg/dL 0.1 - 1.0 04/30/[address] [facility] [address] URINE AND STOOL UA pH 7.0 5.0 - 8.0 04/30/2016 [facility] URINE AND STOOL UA Protein Negative mg/dL Negative mg/dL 04/30/[address] [facility] [address] URINE AND STOOL UA Glucose Negative mg/dL Negative mg/dL 04/30/[address] [facility] [address] URINE AND STOOL UA Spec Grav 1.014 <=1.030 04/30/2016 [facility] URINE AND STOOL UA Turbidity Marked *ABN* (04/29/16 8:56 PM) Clear 04/30/2016 [facility] URINE AND STOOL UA Color Yellow *NA* (04/29/16 8:56 PM) Yellow 04/30/2016 [facility] URINE AND STOOL UA Nitrite Negative (04/29/16 8:56 PM) Negative 04/30/2016 [facility] URINE AND STOOL UA Blood Negative (04/29/16 8:56 PM) Negative 04/30/2016 [facility] URINE AND STOOL UA Bili Negative *NA* (04/29/16 8:56 PM) Negative 04/30/2016 [facility] URINE AND STOOL UA Ketones Negative mg/dL Negative mg/dL 04/30/2016 [facility] CHEM PANEL eGFR 90 04/12/2016 Result Comment: The eGFR is calculated using the [...] from the National Kidney Disease Education Program (NKDEP) which additionally recommends that when the eGFR is used in patients with extremes of body mass index for purposes of drug dosing, the eGFR should be multiplied by the estimated BMI. [facility] CHEM PANEL AST 9 0 - 37 04/12/2016 [facility] CHEM PANEL ALT 28 0 - 65 04/12/2016 [facility] CHEM PANEL Alk Phos 60 39 - 136 04/12/2016 [facility] CHEM PANEL Bili Total 0.2 0.2 - 1.3 04/12/2016 [facility] CHEM PANEL Calcium Lvl 8.8 8.5 - 10.5 04/12/2016 [facility] CHEM PANEL CO2 27 24 - 32 04/12/2016 [facility] CHEM PANEL Chloride Lvl 101 95 - 109 04/12/2016 [facility] CHEM PANEL Creatinine Lvl 0.82 0.50 - 1.40 04/12/2016 [facility] CHEM PANEL Glucose Lvl 96 70 - 99 04/12/2016 [facility] CHEM PANEL BUN 17 7 - 22 04/12/2016 [facility] CHEM PANEL Sodium Lvl 137 135 - 145 04/12/2016 [facility] CHEM PANEL Potassium Lvl 4.0 3.5 - 5.1 04/12/2016 [facility] CHEM PANEL Total Protein 6.7 6.4 - 8.4 04/12/2016 [facility] CHEM PANEL Albumin Lvl 3.6 3.5 - 5.0 04/12/2016 [facility] CHEM PANEL A/G Ratio 1.2 0.7 - 1.6 04/12/2016 [facility] CHEM PANEL B/C Ratio 21 6 - 25 04/12/2016 [facility] CHEM PANEL Globulin 3.1 2.7 - 4.2 04/12/2016 [facility] CHEM PANEL AGAP 13.0 10.0 - 20.0 04/12/2016 [facility] ENDOCRINOLOGY S Preg Ne gative *NA* (04/11/16 9:18 PM) Negative 04/12/2016 [facility] HEMATOLOGY MCH 29.6 27.0 - 31.0 04/12/2016 [facility] HEMATOLOGY MCHC 32.9 32.0 - 36.0 04/12/2016 [facility] HEMATOLOGY MCV 89.9 80.0 - 98.0 04/12/2016 [facility] HEMATOLOGY Hct 30.8 36.0 - 48.0 04/12/2016 [facility] HEMATOLOGY Platelet 381 133 - 450 04/12/2016 [facility] HEMATOLOGY MPV 8.7 7.4 - 10.4 04/12/2016 [facility] HEMATOLOGY RDW 15.4 11.5 - 14.5 04/12/2016 [facility] HEMATOLOGY RBC 3.43 4.20 - 5.40 04/12/2016 [facility] HEMATOLOGY WBC 7.1 3.7 - 10.4 04/12/2016 [facility] HEMATOLOGY Hgb 10.1 12.0 - 16.0 04/12/2016 [facility] HEMATOLOGY PTT 23.9 22.9 - 35.8 04/12/2016 [facility] HEMATOLOGY INR 0.93 0.85 - 1.17 04/12/2016 [facility] HEMATOLOGY PT 12.7 12.0 - 14.7 04/12/2016 [facility] HEMATOLOGY Monocytes # 0.5 0.0 - 0.8 04/12/2016 [facility] HEMATOLOGY Basophils # 0.1 0.0 - 0.2 04/12/2016 [facility] HEMATOLOGY Basophils 1.1 0.0 - 1.0 04/12/2016 [facility] HEMATOLOGY Segs-Bands # 4.3 1.5 - 8.1 04/12/2016 [facility] HEMATOLOGY Lymphocytes # 2.1 1.0 - 5.5 04/12/2016 [facility] HEMATOLOGY Eosinophils 0.6 0.0 - 4.0 04/12/2016 [facility] HEMATOLOGY Monocytes 7.4 2.0 - 12.0 04/12/2016 [facility] HEMATOLOGY Lymphocytes 29.9 20.0 - 40.0 04/12/2016 [facility] HEMATOLOGY Segs 61.0 45.0 - 75.0 04/12/2016 [facility] URINE AND STOOL UA Trans Epi 9 <=0 /LPF 04/12/2016 [facility] URINE AND STOOL UA Color Ltyellow 04/12/2016 [facility] URINE AND STOOL UA Urobilinogen <=1.0 mg/dL 0.1 - 1.0 04/12/2016 [facility] URINE AND STOOL UA Renal Epi 60 <=0 /LPF 04/12/2016 [facility] URINE AND STOOL UA Amorph Adrianne Few /HPF None Seen /HPF 04/12/2016 [facility] URINE AND STOOL UA RBC 2 0 - 2 04/12/2016 [facility] URINE AND STOOL UA Ayr Yeast Occasional /HPF None Seen /HPF 04/12/2016 [facility] URINE AND STOOL UA Spec Grav 1.012 <=1.030 04/12/2016 [facility] URINE AND STOOL UA Turbidity Clear (04/11/16 9:04 PM) Clear 04/12/2016 [facility] URINE AND STOOL UA Glucose Negative mg/dL Negative mg/dL 04/12/2016 [facility] URINE AND STOOL UA Protein Negative mg/dL Negative mg/dL 04/12/2016 [facility] URINE AND STOOL UA pH 7.0 5.0 - 8.0 04/12/2016 [facility] URINE AND STOOL UA Bili Negative *NA* (04/11/16 9:04 PM) Negative 04/12/2016 [facility] URINE AND STOOL UA Ketones Negative mg/dL Negative mg/dL 04/12/2016 [facility] URINE AND STOOL UA Leuk Est Small *ABN* (04/11/16 9:04 PM) Negative 04/12/2016 [facility] URINE AND STOOL UA Nitrite Negative (04/11/16 9:04 PM) Negative 04/12/2016 [facility] URINE AND STOOL UA Blood Negative (04/11/16 9:04 PM) Negative 04/12/2016 [facility] URINE AND STOOL UA Sq Epi Occasional /LPF Few /LPF 04/12/2016 [facility] URINE AND STOOL UA WBC 8 0 - 5 04/12/2016 [facility] URINE AND STOOL UA Color Ltyellow 04/06/2016 [facility] URINE AND STOOL UA Urobilinogen <=1.0 mg/dL 0.1 - 1.0 04/06/2016 [facility] URINE AND STOOL UA Blood Negative (04/06/16 12:00 AM) Negative 04/06/2016 [facility] URINE AND STOOL UA Nitrite Negative (04/06/16 12:00 AM) Negative 04/06/2016 [facility] URINE AND STOOL UA Ketones Trace mg/dL Negative mg/dL 04/06/2016 [facility] URINE AND STOOL UA Bili Negative *NA* (04/06/16 12:00 AM) Negative 04/06/2016 [facility] URINE AND STOOL UA RBC <1 0 - 2 04/06/2016 [facility] URINE AND STOOL UA WBC <1 0 - 5 04/06/2016 [facility] URINE AND STOOL UA Leuk Est Trace *ABN* (04/06/16 12:00 AM) Negative 04/06/2016 [facility] URINE AND STOOL UA Sq Epi Occasional /LPF Few /LPF 04/06/2016 [facility] URINE AND STOOL UA Glucose Negative mg/dL Negative mg/dL 04/06/2016 [facility] URINE AND STOOL UA pH 8.0 5.0 - 8.0 04/06/2016 [facility] URINE AND STOOL UA Protein Negative mg/dL Negative mg/dL 04/06/2016 [facility] URINE AND STOOL UA Spec Grav 1.003 <=1.030 04/06/2016 [facility] URINE AND STOOL UA Turbidity Clear (04/06/16 12:00 AM) Clear 04/06/2016 [facility] CHEM PANEL Lipase Lvl 147 73 - 393 04/06/2016 [facility] CHEM PANEL Amylase Lvl 37 25 - 115 04/06/2016 [facility] CHEM PANEL Globulin 3.4 2.7 - 4.2 04/06/2016 [facility] CHEM PANEL A/G Ratio 1.2 0.7 - 1.6 04/06/2016 [facility] CHEM PANEL B/C Ratio 21 6 - 25 04/06/2016 [facility] CHEM PANEL AGAP 11.0 10.0 - 20.0 04/06/2016 [facility] CHEM PANEL eGFR 113 04/06/2016 Result Comment: The eGFR is calculated using the [...] from the National Kidney Disease Education Program (NKDEP) which additionally recommends that when the eGFR is used in patients with extremes of body mass index for purposes of drug dosing, the eGFR should be multiplied by the estimated BMI. [facility] CHEM PANEL Total Protein 7.6 6.4 - 8.4 04/06/2016 [facility] CHEM PANEL Albumin Lvl 4.2 3.5 - 5.0 04/06/2016 [facility] CHEM PANEL ALT 30 0 - 65 04/06/2016 [facility] CHEM PANEL AST 10 0 - 37 04/06/2016 [facility] CHEM PANEL Calcium Lvl 9.1 8.5 - 10.5 04/06/2016 [facility] CHEM PANEL Alk Phos 75 39 - 136 04/06/2016 [facility] CHEM PANEL Bili Total 0.3 0.2 - 1.3 04/06/2016 [facility] CHEM PANEL Chloride Lvl 100 95 - 109 04/06/2016 [facility] CHEM PANEL Potassium Lvl 4.0 3.5 - 5.1 04/06/2016 [facility] CHEM PANEL CO2 30 24 - 32 04/06/2016 [facility] CHEM PANEL Sodium Lvl 137 135 - 145 04/06/2016 [facility] CHEM PANEL BUN 13 7 - 22 04/06/2016 [facility] CHEM PANEL Creatinine Lvl 0.63 0.50 - 1.40 04/06/2016 [facility] CHEM PANEL Glucose Lvl 93 70 - 99 04/06/2016 [facility] CHEM PANEL Phosphorus 3.2 2.5 - 4.5 04/06/2016 [facility] CHEM PANEL Magnesium Lvl 2.7 1.8 - 2.4 04/06/2016 [facility] ENDOCRINOLOGY S Preg Ne gative *NA* (04/05/16 8:21 PM) Negative 04/06/2016 [facility] HEMATOLOGY Lymphocytes 13.3 20.0 - 40.0 04/06/2016 [facility] HEMATOLOGY Segs 82.4 45.0 - 75.0 04/06/2016 [facility] HEMATOLOGY Segs-Bands # 8.6 1.5 - 8.1 04/06/2016 [facility] HEMATOLOGY Basophils 0.2 0.0 - 1.0 04/06/2016 [facility] HEMATOLOGY Monocytes 4.1 2.0 - 12.0 04/06/2016 [facility] HEMATOLOGY Monocytes # 0.4 0.0 - 0.8 04/06/2016 [facility] HEMATOLOGY Lymphocytes # 1.4 1.0 - 5.5 04/06/2016 [facility] HEMATOLOGY Platelet 420 133 - 450 04/06/2016 [facility] HEMATOLOGY MPV 8.8 7.4 - 10.4 04/06/2016 [facility] HEMATOLOGY RDW 15.9 11.5 - 14.5 04/06/2016 [facility] MCH 29.4 27.0 - 31.0 04/06/2016 [facility] MCHC 32.4 32.0 - 36.0 04/06/2016 [facility] HEMATOLOGY Hct 33.5 36.0 - 48.0 04/06/2016 [facility] HEMATOLOGY MCV 90.6 80.0 - 98.0 04/06/2016 [facility] HEMATOLOGY Hgb 10.9 12.0 - 16.0 04/06/2016 [facility] HEMATOLOGY WBC 10.4 3.7 - 10.4 04/06/2016 [facility] HEMATOLOGY RBC 3.70 4.20 - 5.40 04/06/2016 [facility] URINE AND STOOL UA Urobilinogen <=1.0 mg/dL 0.1 - 1.0 03/03/[address] [facility] [address] URINE AND STOOL UA Color Ltyellow 03/03/2016 [facility] URINE AND STOOL UA Sq Epi Few /LPF Few /LPF 03/03/2016 [facility] URINE AND STOOL UA RBC 4 0 - 2 03/03/2016 [facility] URINE AND STOOL UA WBC 167 0 - 5 03/03/2016 [facility] URINE AND STOOL UA Renal Epi 17 <=0 /LPF 03/03/2016 [facility] URINE AND STOOL UA Bacteria Occasional /HPF None Seen /HPF 03/03/[address] [facility] [address] URINE AND STOOL UA Spec Grav 1.011 <=1.030 03/03/2016 [facility] URINE AND STOOL UA Turbidity Slight *ABN* (03/02/16 8:29 PM) Clear 03/03/2016 [facility] URINE AND STOOL UA Ketones Negative mg/dL Negative mg/dL 03/03/2016 [facility] URINE AND STOOL UA Blood Negative (03/02/16 8:29 PM) Negative 03/03/2016 [facility] URINE AND STOOL UA Protein Negative mg/dL Negative mg/dL 03/03/2016 [facility] URINE AND STOOL UA Bili Negative *NA* (03/02/16 8:29 PM) Negative 03/03/2016 [facility] URINE AND STOOL UA pH 5.0 5.0 - 8.0 03/03/2016 [facility] URINE AND STOOL UA Glucose Negative mg/dL Negative mg/dL 03/03/2016 [facility] URINE AND STOOL UA Leuk Est Large *ABN* (03/02/16 8:29 PM) Negative 03/03/2016 [facility] URINE AND STOOL UA Nitrite Negative (03/02/16 8:29 PM) Negative 03/03/2016 [facility] CHEM PANEL eGFR 114 03/03/2016 Result Comment: The eGFR is calculated using the [...] from the National Kidney Disease Education Program (NKDEP) which additionally recommends that when the eGFR is used in patients with extremes of body mass index for purposes of drug dosing, the eGFR should be multiplied by the estimated BMI. [facility] CHEM PANEL CO2 23 24 - 32 03/03/2016 [facility] CHEM PANEL Total Protein 7.1 6.4 - 8.4 03/03/2016 [facility] CHEM PANEL Calcium Lvl 8.8 8.5 - 10.5 03/03/2016 [facility] CHEM PANEL Sodium Lvl 140 135 - 145 03/03/2016 [facility] CHEM PANEL Creatinine Lvl 0.61 0.50 - 1.40 03/03/2016 [facility] CHEM PANEL Chloride Lvl 108 95 - 109 03/03/2016 [facility] CHEM PANEL Potassium Lvl 4.0 3.5 - 5.1 03/03/2016 [facility] CHEM PANEL BUN 17 7 - 22 03/03/2016 [facility] CHEM PANEL Glucose Lvl 84 70 - 99 03/03/2016 [facility] CHEM PANEL Bili Total <0.1 0.2 - 1.3 03/03/2016 [facility] CHEM PANEL A/G Ratio 1.1 0.7 - 1.6 03/03/2016 [facility] CHEM PANEL ALT 35 0 - 65 03/03/2016 [facility] CHEM PANEL Albumin Lvl 3.7 3.5 - 5.0 03/03/2016 [facility] CHEM PANEL AGAP 13.0 10.0 - 20.0 03/03/2016 [facility] CHEM PANEL Globulin 3.4 2.7 - 4.2 03/03/2016 [facility] CHEM PANEL B/C Ratio 28 6 - 25 03/03/2016 [facility] CHEM PANEL AST 13 0 - 37 03/03/2016 [facility] CHEM PANEL Alk Phos 99 39 - 136 03/03/2016 [facility] CHEM PANEL Amylase Lvl 46 25 - 115 03/03/2016 [facility] CHEM PANEL Lipase Lvl 216 73 - 393 03/03/2016 [facility] CHEM PANEL Bili Direct 0.1 0.0 - 0.3 03/03/2016 [facility] HEMATOLOGY Platelet 386 133 - 450 03/03/2016 [facility] HEMATOLOGY MPV 9.3 7.4 - 10.4 03/03/2016 [facility] HEMATOLOGY RDW 15.1 11.5 - 14.5 03/03/2016 [facility] HEMATOLOGY WBC 6.1 3.7 - 10.4 03/03/2016 [facility] HEMATOLOGY RBC 3.68 4.20 - 5.40 03/03/2016 [facility] HEMATOLOGY Hct 33.8 36.0 - 48.0 03/03/2016 [facility] HEMATOLOGY MCV 91.6 80.0 - 98.0 03/03/2016 [facility] HEMATOLOGY Hgb 11.2 12.0 - 16.0 03/03/2016 [facility] HEMATOLOGY MCHC 33.3 32.0 - 36.0 03/03/2016 [facility] HEMATOLOGY MCH 30.5 27.0 - 31.0 03/03/2016 [facility] HEMATOLOGY Monocytes # 0.5 0.0 - 0.8 03/03/2016 [facility] HEMATOLOGY Eosinophils # 0.2 0.0 - 0.5 03/03/2016 [facility] HEMATOLOGY Basophils # 0.1 0.0 - 0.2 03/03/2016 [facility] HEMATOLOGY Lymphocytes # 2.7 1.0 - 5.5 03/03/2016 [facility] HEMATOLOGY Basophils 0.9 0.0 - 1.0 03/03/2016 [facility] HEMATOLOGY Segs-Bands # 2.6 1.5 - 8.1 03/03/2016 [facility] Monocytes 8.3 2.0 - 12.0 03/03/2016 [facility] HEMATOLOGY Segs 43.4 45.0 - 75.0 03/03/2016 [facility] HEMATOLOGY Eosinophils 3.5 0.0 - 4.0 03/03/2016 [facility] Lymphocytes 43.9 20.0 - 40.0 03/03/2016 [facility] ELECTROLYTES Sodium Lvl 143 135 - 145 09/26/2014 [facility] ELECTROLYTES Chloride Lvl 107 95 - 109 09/26/2014 [facility] ELECTROLYTES Potassium Lvl 3.5 3.5 - 5.1 09/26/2014 [facility] ELECTROLYTES eGFR 110 09/26/2014 <sup>1</sup>Result Comment: The eGFR is calculated using the CKD-EPI formula. In most young, healthy individuals the eGFR will be >90 mL/min/1.73m2. The eGFR declines with age. An eGFR of 60-89 may be normal in some populations, particularly the elderly, for whom the CKD-EPI formula has not been extensively validated. Use of the eGFR is not recommended in the following populations:& lt;br/>
Individuals with unstable creatinine concentrations, including patients and those with serious co-morbid conditions.

Patients with extremes in muscle mass or diet.

The data above are obtained from the National Kidney Disease Education Program (NKDEP) which additionally recommends that when the eGFR is used in patients with extremes of body mass index for purposes of drug dosing, the eGFR should be multiplied by the estimated BMI. [facility] ELECTROLYTES Glucose Lvl 82 70 - 99 09/26/2014 <sup>4</sup>Interpretive Data: Adult ref erence range values reflect the clinical guidelines
of the [place] [employer]. [facility] ELECTROLYTES CO2 27 24 - 32 09/26/2014 [facility] ELECTROLYTES Creatinine Lvl 0.7 0.5 - 1.4 09/26/2014 [facility] ELECTROLYTES AGAP 12.5 10.0 - 20.0 09/26/2014 [facility] ELECTROLYTES Calcium Lvl 7.9 8.5 - 10.5 09/26/2014 [facility] ELECTROLYTES BUN 6 7 - 22 09/26/2014 [facility] ELECTROLYTES Sodium Lvl 144 135 - 145 09/23/2014 [facility] ELECTROLYTES Chloride Lvl 107 95 - 109 09/23/2014 [facility] ELECTROLYTES Potassium Lvl 4.1 3.5 - 5.1 09/23/2014 [facility] ELECTROLYTES eGFR 94 09/23/2014 <sup>2</sup>Result Comment: The eGFR is calculated using the CKD-EPI formula. In most young, healthy individuals the eGFR will be >90 mL/min/1.73m2. The eGFR declines with age. An eGFR of 60-89 may be normal in some populations, particularly the elderly, for whom the CKD-EPI formula has not been extensively validated. Use of the eGFR is not recommended in the following populations:& lt;br/>
Individuals with unstable creatinine concentrations, including patients and those with serious co-morbid conditions.

Patients with extremes in muscle mass or diet.

The data above are obtained from the National Kidney Disease Education Program (NKDEP) which additionally recommends that when the eGFR is used in patients with extremes of body mass index for purposes of drug dosing, the eGFR should be multiplied by the estimated BMI. [facility] ELECTROLYTES AST 29 0 - 37 09/23/2014 [facility] ELECTROLYTES Bili Total 0.3 0.2 - 1.3 09/23/2014 [facility] ELECTROLYTES Alk Phos 238 39 - 136 09/23/2014 [facility] ELECTROLYTES Albumin Lvl 3.4 3.5 - 5.0 09/23/2014 [facility] ELECTROLYTES ALT 122 0 - 65 09/23/2014 [facility] ELECTROLYTES Total Protein 5.6 6.4 - 8.4 09/23/2014 [facility] ELECTROLYTES Calcium Lvl 8.3 8.5 - 10.5 09/23/2014 [facility] ELECTROLYTES BUN 4 7 - 22 09/23/2014 [facility] ELECTROLYTES Glucose Lvl 62 70 - 99 09/23/2014 <sup>5</sup>Interpretive Data: Adult ref erence range values reflect the clinical guidelines
of the [place] [employer]. [facility] ELECTROLYTES Creatinine Lvl 0.8 0.5 - 1.4 09/23/2014 [facility] ELECTROLYTES CO2 29 24 - 32 09/23/2014 [facility] ELECTROLYTES AGAP 12.1 10.0 - 20.0 09/23/2014 [facility] ELECTROLYTES A/G Ratio 1.5 0.7 - 1.6 09/23/2014 [facility] ELECTROLYTES B/C Ratio 5 6 - 25 09/23/2014 [facility] ELECTROLYTES Globulin 2.2 2.0 - 4.0 09/23/2014 [facility] HEMATOLOGY Eosinophils # 0.7 0.0 - 0.5 09/23/2014 [facility] HEMATOLOGY Monocytes # 0.3 0.0 - 0.8 09/23/2014 [facility] HEMATOLOGY Lymphocytes # 1.5 1.0 - 5.5 09/23/2014 [facility] HEMATOLOGY Basophils 0.9 0.0 - 1.0 09/23/2014 [facility] HEMATOLOGY Eosinophils 17.0 0.0 - 4.0 09/23/2014 [facility] HEMATOLOGY Segs-Bands # 1.4 1.5 - 8.1 09/23/2014 [facility] HEMATOLOGY Monocytes 7.9 2.0 - 12.0 09/23/2014 [facility] HEMATOLOGY Lymphocytes 38.1 20.0 - 40.0 09/23/2014 [facility] HEMATOLOGY Segs 36.1 45.0 - 75.0 09/23/2014 [facility] MCH 32.1 27.0 - 31.0 09/23/2014 [facility] MCHC 33.5 32.0 - 36.0 09/23/2014 [facility] HEMATOLOGY MCV 95.9 80.0 - 98.0 09/23/2014 [facility] HEMATOLOGY Platelet 215 133 - 450 09/23/2014 [facility] HEMATOLOGY RDW 13.5 11.5 - 14.5 09/23/2014 [facility] HEMATOLOGY Hct 36.0 36.0 - 48.0 09/23/2014 [facility] Hgb 12.0 12.0 - 16.0 09/23/2014 [facility] RBC 3.75 4.20 - 5.40 09/23/2014 [facility] MPV 10.2 7.4 - 10.4 09/23/2014 [facility] HEMATOLOGY WBC 3.8 3.7 - 10.4 09/23/2014 [facility] ELECTROLYTES AGAP 12.6 10.0 - 20.0 09/19/2014 [facility] ELECTROLYTES A/G Ratio 1.3 0.7 - 1.6 09/19/2014 [facility] ELECTROLYTES B/C Ratio 4 6 - 25 09/19/2014 [facility] ELECTROLYTES Globulin 2.2 2.0 - 4.0 09/19/2014 [facility] ELECTROLYTES Potassium Lvl 3.6 3.5 - 5.1 09/19/2014 [facility] ELECTROLYTES Chloride Lvl 111 95 - 109 09/19/2014 [facility] ELECTROLYTES Calcium Lvl 8.0 8.5 - 10.5 09/19/2014 [facility] ELECTROLYTES Creatinine Lvl 0.8 0.5 - 1.4 09/19/2014 [facility] ELECTROLYTES Sodium Lvl 144 135 - 145 09/19/2014 [facility] ELECTROLYTES eGFR 94 09/19/2014 <sup>3</sup>Result Comment: The eGFR is calculated using the CKD-EPI formula. In most young, healthy individuals the eGFR will be >90 mL/min/1.73m2. The eGFR declines with age. An eGFR of 60-89 may be normal in some populations, particularly the elderly, for whom the CKD-EPI formula has not been extensively validated. Use of the eGFR is not recommended in the following populations:& lt;br/>
Individuals with unstable creatinine concentrations, including patients and those with serious co-morbid conditions.

Patients with extremes in muscle mass or diet.

The data above are obtained from the National Kidney Disease Education Program (NKDEP) which additionally recommends that when the eGFR is used in patients with extremes of body mass index for purposes of drug dosing, the eGFR should be multiplied by the estimated BMI. [facility] ELECTROLYTES Bili Total 0.3 0.2 - 1.3 09/19/2014 [facility] ELECTROLYTES Alk Phos 225 39 - 136 09/19/2014 [facility] ELECTROLYTES AST 32 0 - 37 09/19/2014 [facility] ELECTROLYTES Total Protein 5.1 6.4 - 8.4 09/19/2014 [facility] ELECTROLYTES Albumin Lvl 2.9 3.5 - 5.0 09/19/2014 [facility] ELECTROLYTES CO2 24 24 - 32 09/19/2014 [facility] ELECTROLYTES ALT 177 0 - 65 09/19/2014 [facility] ELECTROLYTES Glucose Lvl 97 70 - 99 09/19/2014 <sup>6</sup>Interpretive Data: Adult ref erence range values reflect the clinical guidelines
of the [place] [employer]. [facility] ELECTROLYTES BUN 3 7 - 22 09/19/2014 [facility] HEMATOLOGY Hgb 11.0 12.0 - 16.0 09/19/2014 [facility] RBC 3.41 4.20 - 5.40 09/19/2014 [facility] HEMATOLOGY MCV 96.2 80.0 - 98.0 09/19/2014 [facility] HEMATOLOGY Hct 32.8 36.0 - 48.0 09/19/2014 [facility] MCH 32.4 27.0 - 31.0 09/19/2014 [facility] RDW 14.0 11.5 - 14.5 09/19/2014 [facility] MPV 10.5 7.4 - 10.4 09/19/2014 [facility] MCHC 33.7 32.0 - 36.0 09/19/2014 [facility] Platelet 174 133 - 450 09/19/2014 [facility] WBC 4.1 3.7 - 10.4 09/19/2014 [facility] Lymphocytes 51.5 20.0 - 40.0 09/19/2014 [facility] HEMATOLOGY Segs 27.2 45.0 - 75.0 09/19/2014 [facility] HEMATOLOGY Basophils 0.6 0.0 - 1.0 09/19/2014 [facility] Eosinophils 13.5 0.0 - 4.0 09/19/2014 [facility] Lymphocytes # 2.1 1.0 - 5.5 09/19/2014 [facility] Monocytes # 0.3 0.0 - 0.8 09/19/2014 [facility] Eosinophils # 0.6 0.0 - 0.5 09/19/2014 [facility] Monocytes 7.2 2.0 - 12.0 09/19/2014 [facility] Segs-Bands # 1.1 1.5 - 8.1 09/19/2014 [facility] CHEM PANEL Albumin Lvl 3.4 3.5 - 5.0 09/18/2014 [facility] CHEM PANEL Globulin 2.4 2.0 - 4.0 09/18/2014 [facility] CHEM PANEL A/G Ratio 1.4 0.7 - 1.6 09/18/2014 [facility] CHEM PANEL ALT 233 0 - 65 09/18/2014 [facility] CHEM PANEL AST 51 0 - 37 09/18/2014 [facility] CHEM PANEL Total Protein 5.8 6.4 - 8.4 09/18/2014 [facility] CHEM PANEL Alk Phos 237 39 - 136 09/18/2014 [facility] CHEM PANEL Bili Total 0.2 0.2 - 1.3 09/18/2014 [facility] CHEM PANEL B/C Ratio 5 6 - 25 09/18/2014 [facility] HEMATOLOGY Monocytes 7.1 2.0 - 12.0 09/16/2014 [facility] HEMATOLOGY Segs 16.2 45.0 - 75.0 09/16/2014 [facility] Monocytes # 0.3 0.0 - 0.8 09/16/2014 [facility] HEMATOLOGY Basophils 0.8 0.0 - 1.0 09/16/2014 [facility] HEMATOLOGY Eosinophils 15.0 0.0 - 4.0 09/16/2014 [facility] Lymphocytes 60.9 20.0 - 40.0 09/16/2014 [facility] Lymphocytes # 2.5 1.0 - 5.5 09/16/2014 [facility] HEMATOLOGY Segs-Bands # 0.7 1.5 - 8.1 09/16/2014 [facility] Eosinophils # 0.6 0.0 - 0.5 09/16/2014 [facility] Plt Morph Ashlee l (09/16/14 5:00 AM) 09/16/2014 [facility] RBC Morph Ashlee l (09/16/14 5:00 AM) 09/16/2014 [facility] Platelet 185 133 - 450 09/16/2014 [facility] RDW 13.9 11.5 - 14.5 09/16/2014 [facility] RBC 3.42 4.20 - 5.40 09/16/2014 [facility] Hct 32.9 36.0 - 48.0 09/16/2014 [facility] Hgb 11.1 12.0 - 16.0 09/16/2014 [facility] MCH 32.3 27.0 - 31.0 09/16/2014 [facility] MCHC 33.6 32.0 - 36.0 09/16/2014 [facility] MCV 96.2 80.0 - 98.0 09/16/2014 [facility] MPV 10.9 7.4 - 10.4 09/16/2014 [facility] HEMATOLOGY WBC 4.2 3.7 - 10.4 09/16/2014 [facility] CHEM PANEL Lipase Lvl 131 73 - 393 09/15/2014 [facility] CHEM PANEL Magnesium Lvl 1.8 1.8 - 2.4 09/14/2014 [facility] CHEM PANEL Phosphorus 3.9 2.5 - 4.5 09/14/2014 [facility] HEMATOLOGY PTT 31.6 22.9 - 35.8 09/14/2014 <sup>9</sup>Interpretive Data: Heparin T herapeutic Range: 57 - 92 Seconds [facility] HEMATOLOGY PT 14.2 12.0 - 14.7 09/14/2014 [facility] HEMATOLOGY INR 1.09 0.85 - 1.17 09/14/2014 <sup>7</sup>Interpretive Data: RECOMMEND ED RANGES FOR PROTIME INR:
2.0-3.0 for most medical and surgical thromboembolic states.
2.5-3.5 for artificial heart valves and recurrent embolism.

INR SHOULD BE USED ONLY FOR PATIENTS ON STABLE ANTICOAGULANT THERAPY. [facility] CARDIAC ENZYMES Total CK 113 12 - 191 09/14/2014 [facility] CHEM PANEL Magnesium Lvl 1.9 1.8 - 2.4 09/14/2014 [facility] CHEM PANEL Lipase Lvl 178 73 - 393 09/14/2014 [facility] CHEM PANEL Phosphorus 3.0 2.5 - 4.5 09/14/2014 [facility] CHEM PANEL Amylase Lvl 43 25 - 115 09/14/2014 [facility] HEMATOLOGY INR 0.97 0.85 - 1.17 09/14/2014 <sup>8</sup>Interpretive Data: RECOMMEND ED RANGES FOR PROTIME INR:
2.0-3.0 for most medical and surgical thromboembolic states.
2.5-3.5 for artificial heart valves and recurrent embolism.

INR SHOULD BE USED ONLY FOR PATIENTS ON STABLE ANTICOAGULANT THERAPY. [facility] HEMATOLOGY PT 12.9 12.0 - 14.7 09/14/2014 [facility] PTT 33.0 22.9 - 35.8 09/14/2014 <sup>10</sup>Interpretive Data: Heparin Therapeutic Range: 57 - 92 Seconds [facility] URINE AND STOOL UA Color Ltyellow 09/14/2014 [facility] URINE AND STOOL UA Urobilinogen <=1.0 mg/dL 0.1 - 1.0 09/14/2014 [facility] URINE AND STOOL UA Nitrite Negative (09/13/14 11:03 PM) Negative 09/14/2014 [facility] URINE AND STOOL UA Leuk Est Negative (09/13/14 11:03 PM) Negative 09/14/2014 [facility] URINE AND STOOL UA Sq Epi Occasional /LPF Few /LPF 09/14/2014 [facility] URINE AND STOOL UA Protein Negative mg/dL Negative mg/dL 09/14/2014 [facility] URINE AND STOOL UA Glucose Negative mg/dL Negative mg/dL 09/14/2014 [facility] URINE AND STOOL UA Ketones Negative mg/dL Negative mg/dL 09/14/2014 [facility] URINE AND STOOL UA Bili Negative *NA* (09/13/14 11:03 PM) Negative 09/14/2014 [facility] URINE AND STOOL UA Blood Negative (09/13/14 11:03 PM) Negative 09/14/2014 [facility] URINE AND STOOL UA pH 5.0 5.0 - 8.0 09/14/2014 [facility] URINE AND STOOL UA Spec Grav 1.020 <=1.030 09/14/2014 [facility] URINE AND STOOL UA Turbidity Clear (09/13/14 11:03 PM) Clear 09/14/2014 [facility] ENDOCRINOLOGY hCG Tot 4 12/16/2013 <sup>7</sup>Interpretive Data: Reference Range:
Male 0 - 5 [...] 8,175 - 55,868
18 8,099 - 58,176 [facility] CHEM PANEL B/C Ratio 14 6 - 25 12/16/2013 [facility] CHEM PANEL A/G Ratio 1.1 0.7 - 1.6 12/16/2013 [facility] CHEM PANEL Globulin 3.0 2.0 - 4.0 12/16/2013 [facility] CHEM PANEL AGAP 7.9 10.0 - 20.0 12/16/2013 [facility] CHEM PANEL eGFR 94 12/16/2013 <sup>1</sup>Result Comment: The eGFR is calculated using the CKD-EPI formula. In most young, healthy individuals the eGFR will be >90 mL/min/1.73m2. The eGFR declines with age. An eGFR of 60-89 may be normal in some populations, particularly the elderly, for whom the CKD-EPI formula has not been extensively validated. Use of the eGFR is not recommended in the following populations:& lt;br/>
Individuals with unstable creatinine concentrations, including patients and those with serious co-morbid conditions.

Patients with extremes in muscle mass or diet.

The data above are obtained from the National Kid[employer] Disease Education Program (NKDEP) which additionally recommends that when the eGFR is used in patients with extremes of body mass index for purposes of drug dosing, the eGFR should be multiplied by the estimated BMI. [facility] CHEM PANEL Bili Total <0.1 0.2 - 1.3 12/16/2013 [facility] CHEM PANEL Alk Phos 262 39 - 136 12/16/2013 [facility] CHEM PANEL Total Protein 6.4 6.4 - 8.4 12/16/2013 [facility] CHEM PANEL Albumin Lvl 3.4 3.5 - 5.0 12/16/2013 [facility] CHEM PANEL Creatinine Lvl 0.8 0.5 - 1.4 12/16/2013 [facility] CHEM PANEL BUN 11 7 - 22 12/16/2013 [facility] CHEM PANEL Chloride Lvl 107 95 - 109 12/16/2013 [facility] CHEM PANEL ALT 332 0 - 65 12/16/2013 [facility] CHEM PANEL AST 142 0 - 37 12/16/2013 [facility] CHEM PANEL Sodium Lvl 139 135 - 145 12/16/2013 [facility] CHEM PANEL Glucose Lvl 93 70 - 99 12/16/2013 <sup>4</sup>Interpretive Data: Adult ref erence range values reflect the clinical guidelines
of the [place] [employer]. [facility] CHEM PANEL Potassium Lvl 5.9 3.5 - 5.1 12/16/2013 [facility] CHEM PANEL Calcium Lvl 9.5 8.5 - 10.5 12/16/2013 [facility] CHEM PANEL CO2 30 24 - 32 12/16/2013 [facility] HEMATOLOGY Segs-Bands # 1.4 1.5 - 8.1 12/16/2013 [facility] HEMATOLOGY Lymphocytes # 2.1 1.0 - 5.5 12/16/2013 [facility] HEMATOLOGY Eosinophils # 0.3 0.0 - 0.5 12/16/2013 [facility] HEMATOLOGY Monocytes # 0.4 0.0 - 0.8 12/16/2013 [facility] HEMATOLOGY Segs 33.9 45.0 - 75.0 12/16/2013 [facility] HEMATOLOGY Monocytes 8.6 2.0 - 12.0 12/16/2013 [facility] HEMATOLOGY Eosinophils 6.6 0.0 - 4.0 12/16/2013 [facility] HEMATOLOGY Basophils 0.9 0.0 - 1.0 12/16/2013 [facility] HEMATOLOGY Lymphocytes 50.0 20.0 - 40.0 12/16/2013 [facility] HEMATOLOGY MPV 10.1 7.4 - 10.4 12/16/2013 [facility] HEMATOLOGY RDW 14.3 11.5 - 14.5 12/16/2013 [facility] HEMATOLOGY Platelet 233 133 - 450 12/16/2013 [facility] HEMATOLOGY MCV 98.1 81.0 - 99.0 12/16/2013 [facility] HEMATOLOGY MCH 32.5 27.0 - 31.0 12/16/2013 [facility] MCHC 33.1 32.0 - 36.0 12/16/2013 [facility] HEMATOLOGY Hct 33.6 36.0 - 48.0 12/16/2013 [facility] HEMATOLOGY Hgb 11.1 12.0 - 16.0 12/16/2013 [facility] HEMATOLOGY RBC 3.43 4.20 - 5.40 12/16/2013 [facility] HEMATOLOGY WBC 4.2 3.7 - 10.4 12/16/2013 [facility] CHEM PANEL eGFR 94 12/15/2013 <sup>2</sup>Result Comment: The eGFR is calculated using the CKD-EPI formula. In most young, healthy individuals the eGFR will be >90 mL/min/1.73m2. The eGFR declines with age. An eGFR of 60-89 may be normal in some populations, particularly the elderly, for whom the CKD-EPI formula has not been extensively validated. Use of the eGFR is not recommended in the following populations:& lt;br/>
Individuals with unstable creatinine concentrations, including patients and those with serious co-morbid conditions.

Patients with extremes in muscle mass or diet.

The data above are obtained from the National Kid[employer] Disease Education Program (NKDEP) which additionally recommends that when the eGFR is used in patients with extremes of body mass index for purposes of drug dosing, the eGFR should be multiplied by the estimated BMI. [facility] CHEM PANEL Bili Total 0.2 0.2 - 1.3 12/15/2013 [facility] CHEM PANEL ALT 329 0 - 65 12/15/2013 [facility] CHEM PANEL Total Protein 6.7 6.4 - 8.4 12/15/2013 [facility] CHEM PANEL CO2 30 24 - 32 12/15/2013 [facility] CHEM PANEL Calcium Lvl 9.2 8.5 - 10.5 12/15/2013 [facility] CHEM PANEL Albumin Lvl 3.7 3.5 - 5.0 12/15/2013 [facility] CHEM PANEL AST 116 0 - 37 12/15/2013 [facility] CHEM PANEL Alk Phos 291 39 - 136 12/15/2013 [facility] CHEM PANEL Chloride Lvl 104 95 - 109 12/15/2013 [facility] CHEM PANEL Potassium Lvl 5.2 3.5 - 5.1 12/15/2013 [facility] CHEM PANEL BUN 13 7 - 22 12/15/2013 [facility] CHEM PANEL Glucose Lvl 77 70 - 99 12/15/2013 <sup>5</sup>Interpretive Data: Adult ref erence range values reflect the clinical guidelines
of the [place] [employer]. [facility] CHEM PANEL Sodium Lvl 140 135 - 145 12/15/2013 [facility] CHEM PANEL Creatinine Lvl 0.8 0.5 - 1.4 12/15/2013 [facility] CHEM PANEL B/C Ratio 16 6 - 25 12/15/2013 [facility] CHEM PANEL AGAP 11.2 10.0 - 20.0 12/15/2013 [facility] CHEM PANEL A/G Ratio 1.2 0.7 - 1.6 12/15/2013 [facility] CHEM PANEL Globulin 3.0 2.0 - 4.0 12/15/2013 [facility] HEMATOLOGY Eosinophils # 0.2 0.0 - 0.5 12/15/2013 [facility] HEMATOLOGY Monocytes # 0.3 0.0 - 0.8 12/15/2013 [facility] HEMATOLOGY Lymphocytes # 1.8 1.0 - 5.5 12/15/2013 [facility] HEMATOLOGY Basophils 0.9 0.0 - 1.0 12/15/2013 [facility] HEMATOLOGY Segs-Bands # 0.9 1.5 - 8.1 12/15/2013 [facility] HEMATOLOGY Eosinophils 6.9 0.0 - 4.0 12/15/2013 [facility] HEMATOLOGY Lymphocytes 56.8 20.0 - 40.0 12/15/2013 [facility] HEMATOLOGY Monocytes 8.3 2.0 - 12.0 12/15/2013 [facility] HEMATOLOGY Segs 27.1 45.0 - 75.0 12/15/2013 [facility] HEMATOLOGY Hgb 11.7 12.0 - 16.0 12/15/2013 [facility] HEMATOLOGY Hct 35.0 36.0 - 48.0 12/15/2013 [facility] HEMATOLOGY Platelet 208 133 - 450 12/15/2013 [facility] HEMATOLOGY RDW 13.9 11.5 - 14.5 12/15/2013 [facility] HEMATOLOGY MCHC 33.3 32.0 - 36.0 12/15/2013 [facility] HEMATOLOGY MPV 10.0 7.4 - 10.4 12/15/2013 [facility] MCH 32.7 27.0 - 31.0 12/15/2013 [facility] HEMATOLOGY MCV 98.1 81.0 - 99.0 12/15/2013 [facility] HEMATOLOGY WBC 3.2 3.7 - 10.4 12/15/2013 [facility] HEMATOLOGY RBC 3.56 4.20 - 5.40 12/15/2013 [facility] HEMATOLOGY MCV 98.3 81.0 - 99.0 12/14/2013 [facility] MCH 32.0 27.0 - 31.0 12/14/2013 [facility] RBC 3.70 4.20 - 5.40 12/14/2013 [facility] Hct 36.4 36.0 - 48.0 12/14/2013 [facility] Hgb 11.9 12.0 - 16.0 12/14/2013 [facility] WBC 5.0 3.7 - 10.4 12/14/2013 [facility] MCHC 32.6 32.0 - 36.0 12/14/2013 [facility] RDW 14.1 11.5 - 14.5 12/14/2013 [facility] MPV 10.5 7.4 - 10.4 12/14/2013 [facility] Platelet 219 133 - 450 12/14/2013 [facility] Eosinophils # 0.3 0.0 - 0.5 12/14/2013 [facility] Basophils 0.8 0.0 - 1.0 12/14/2013 [facility] Lymphocytes # 3.2 1.0 - 5.5 12/14/2013 [facility] Segs-Bands # 1.3 1.5 - 8.1 12/14/2013 [facility] Monocytes # 0.2 0.0 - 0.8 12/14/2013 [facility] Plt Morph Ashlee l (12/14/13 5:17 AM) 12/14/2013 [facility] Segs 25.5 45.0 - 75.0 12/14/2013 [facility] Monocytes 4.1 2.0 - 12.0 12/14/2013 [facility] Eosinophils 6.5 0.0 - 4.0 12/14/2013 [facility] Lymphocytes 63.1 20.0 - 40.0 12/14/2013 [facility] RBC Morph Ashlee l (12/14/13 5:17 AM) 12/14/2013 [facility] CHEM PANEL eGFR 111 12/13/2013 <sup>3</sup>Result Comment: The eGFR is calculated using the CKD-EPI formula. In most young, healthy individuals the eGFR will be >90 mL/min/1.73m2. The eGFR declines with age. An eGFR of 60-89 may be normal in some populations, particularly the elderly, for whom the CKD-EPI formula has not been extensively validated. Use of the eGFR is not recommended in the following populations:& lt;br/>
Individuals with unstable creatinine concentrations, including patients and those with serious co-morbid conditions.

Patients with extremes in muscle mass or diet.

The data above are obtained from the National Kidney Disease Education Program (NKDEP) which additionally recommends that when the eGFR is used in patients with extremes of body mass index for purposes of drug dosing, the eGFR should be multiplied by the estimated BMI. [facility] CHEM PANEL Bili Total 0.2 0.2 - 1.3 12/13/2013 [facility] CHEM PANEL ALT 249 0 - 65 12/13/2013 [facility] CHEM PANEL Albumin Lvl 2.9 3.5 - 5.0 12/13/2013 [facility] CHEM PANEL Sodium Lvl 141 135 - 145 12/13/2013 [facility] CHEM PANEL BUN 11 7 - 22 12/13/2013 [facility] CHEM PANEL Creatinine Lvl 0.7 0.5 - 1.4 12/13/2013 [facility] CHEM PANEL CO2 27 24 - 32 12/13/2013 [facility] CHEM PANEL Calcium Lvl 8.2 8.5 - 10.5 12/13/2013 [facility] CHEM PANEL Total Protein 5.2 6.4 - 8.4 12/13/2013 [facility] CHEM PANEL AST 65 0 - 37 12/13/2013 [facility] CHEM PANEL Alk Phos 265 39 - 136 12/13/2013 [facility] CHEM PANEL Potassium Lvl 4.6 3.5 - 5.1 12/13/2013 [facility] CHEM PANEL Chloride Lvl 107 95 - 109 12/13/2013 [facility] CHEM PANEL Glucose Lvl 82 70 - 99 12/13/2013 <sup>6</sup>Interpretive Data: Adult ref erence range values reflect the clinical guidelines
of the [place] [employer]. [facility] CHEM PANEL B/C Ratio 16 6 - 25 12/13/2013 [facility] CHEM PANEL AGAP 11.6 10.0 - 20.0 12/13/2013 [facility] CHEM PANEL Globulin 2.3 2.0 - 4.0 12/13/2013 [facility] CHEM PANEL A/G Ratio 1.3 0.7 - 1.6 12/13/2013 [facility] ANEMIA STUDY Folate Lvl 10.8 >=3.0 ng/mL 12/13/2013 [facility] ANEMIA STUDY Vitamin B12 Lvl 295 254 - 1320 12/13/2013 [facility] ANEMIA STUDY Iron 114 30 - 160 12/13/2013 [facility] ANEMIA STUDY UIBC 260 110 - 370 12/13/2013 [facility] ANEMIA STUDY TIBC 374 228 - 428 12/13/2013 [facility] ANEMIA STUDY % Satur Fe 30 12 - 57 12/13/2013 [facility] ANEMIA STUDY Ferritin Lvl 25 5 - 204 12/13/2013 [facility] ANEMIA STUDY Ferritin Lvl 31 5 - 204 12/12/2013 [facility] HEMATOLOGY INR 0.95 0.85 - 1.17 12/12/2013 <sup>8</sup>Interpretive Data: RECOMMEND ED RANGES FOR PROTIME INR:
2.0-3.0 for most medical and surgical thromboembolic states.
2.5-3.5 for artificial heart valves and recurrent embolism.

INR SHOULD BE USED ONLY FOR PATIENTS ON STABLE ANTICOAGULANT THERAPY. [facility] HEMATOLOGY PT 12.6 12.0 - 14.7 12/12/2013 [facility] URINE AND STOOL UA Urobilinogen <=1.0 mg/dL 0.1 - 1.0 12/10/2013 [facility] URINE AND STOOL UA Color Ltyellow 12/10/2013 [facility] URINE AND STOOL UA Nitrite Negative (12/10/13 5:30 PM) Negative 12/10/2013 [facility] URINE AND STOOL UA Leuk Est Trace *ABN* (12/10/13 5:30 PM) Negative 12/10/2013 [facility] URINE AND STOOL UA Sq Epi Occasional /LPF Few /LPF 12/10/2013 [facility] URINE AND STOOL UA WBC 3 0 - 5 12/10/2013 [facility] URINE AND STOOL UA Spec Grav 1.004 <=1.030 12/10/2013 [facility] URINE AND STOOL UA Turbidity Clear (12/10/13 5:30 PM) Clear 12/10/2013 [facility] URINE AND STOOL UA pH 7.0 5.0 - 8.0 12/10/2013 [facility] URINE AND STOOL UA Bili Negative *NA* (12/10/13 5:30 PM) Negative 12/10/2013 [facility] URINE AND STOOL UA Ketones Negative mg/dL Negative mg/dL 12/10/2013 [facility] URINE AND STOOL UA Blood Negative (12/10/13 5:30 PM) Negative 12/10/2013 [facility] URINE AND STOOL UA Glucose Negative mg/dL Negative mg/dL 12/10/2013 [facility] URINE AND STOOL UA Protein Negative mg/dL Negative mg/dL 12/10/2013 [facility] CHEM PANEL Magnesium Lvl 1.9 1.8 - 2.4 12/10/2013 [facility] H pylori IgG <0.4 09/24/2013 <sup>3</sup>Interpretive Data: Reference Ranges:
Negative: <0.9 U/mL
Indeterminate: 0.9 - 1.0 U/mL
Repeat testing in 10-14 days may be helpful
Positive: >= 1.1 U/mL

A positive result indicates exposure of the patient to H. Pylori, but does not indicate that the current symptoms are due to H. Pylori infection or colonization. Neither does it differentiate between active and past infection. [facility] URINE AND STOOL UA Color Ltyellow 09/19/2013 [facility] URINE AND STOOL UA Urobilinogen <=1.0 mg/dL 0.1 - 1.0 09/19/2013 [facility] URINE AND STOOL UA Spec Grav 1.008 <=1.030 09/19/2013 [facility] URINE AND STOOL UA Turbidity Clear (09/19/13 12:40 AM) Clear 09/19/2013 [facility] URINE AND STOOL UA Hyal Cast 6 0 - 2 09/19/2013 [facility] URINE AND STOOL UA Glucose Negative mg/dL Negative mg/dL 09/19/2013 [facility] URINE AND STOOL UA RBC <1 0 - 2 09/19/2013 [facility] URINE AND STOOL UA WBC 2 0 - 5 09/19/2013 [facility] URINE AND STOOL UA Blood Small *ABN* (09/19/13 12:40 AM) Negative 09/19/2013 [facility] URINE AND STOOL UA Ketones Trace mg/dL Negative mg/dL 09/19/2013 [facility] URINE AND STOOL UA Bili Negative *NA* (09/19/13 12:40 AM) Negative 09/19/2013 [facility] URINE AND STOOL UA Protein Negative mg/dL Negative mg/dL 09/19/2013 [facility] URINE AND STOOL UA pH 6.0 5.0 - 8.0 09/19/2013 [facility] URINE AND STOOL UA Sq Epi Occasional /LPF Few /LPF 09/19/2013 [facility] URINE AND STOOL UA Leuk Est Small *ABN* (09/19/13 12:40 AM) Negative 09/19/2013 [facility] URINE AND STOOL UA Nitrite Negative (09/19/13 12:40 AM) Negative 09/19/2013 [facility] CHEM PANEL A/G Ratio 1.3 0.7 - 1.6 09/19/2013 [facility] CHEM PANEL Globulin 3.1 2.0 - 4.0 09/19/2013 [facility] CHEM PANEL B/C Ratio 17 6 - 25 09/19/2013 [facility] CHEM PANEL AGAP 12.5 10.0 - 20.0 09/19/2013 [facility] CHEM PANEL eGFR 111 09/19/2013 <sup>1</sup>Result Comment: The eGFR is calculated using the CKD-EPI formula. In most young, healthy individuals the eGFR will be >90 mL/min/1.73m2. The eGFR declines with age. An eGFR of 60-89 may be normal in some populations, particularly the elderly, for whom the CKD-EPI formula has not been extensively validated. Use of the eGFR is not recommended in the following populations:& lt;br/>
Individuals with unstable creatinine concentrations, including patients and those with serious co-morbid conditions.

Patients with extremes in muscle mass or diet.

The data above are obtained from the National Kidney Disease Education Program (NKDEP) which additionally recommends that when the eGFR is used in patients with extremes of body mass index for purposes of drug dosing, the eGFR should be multiplied by the estimated BMI. [facility] CHEM PANEL BUN 12 7 - 22 09/19/2013 [facility] CHEM PANEL Glucose Lvl 90 70 - 99 09/19/2013 <sup>2</sup>Interpretive Data: Adult ref erence range values reflect the clinical guidelines
of the [place] [employer]. [facility] CHEM PANEL Creatinine Lvl 0.7 0.5 - 1.4 09/19/2013 [facility] CHEM PANEL Bili Total 0.5 0.2 - 1.3 09/19/2013 [facility] CHEM PANEL AST 358 0 - 37 09/19/2013 [facility] CHEM PANEL Alk Phos 308 39 - 136 09/19/2013 [facility] CHEM PANEL Calcium Lvl 8.9 8.5 - 10.5 09/19/2013 [facility] CHEM PANEL CO2 25 24 - 32 09/19/2013 [facility] CHEM PANEL Albumin Lvl 4.0 3.5 - 5.0 09/19/2013 [facility] CHEM PANEL Total Protein 7.1 6.4 - 8.4 09/19/2013 [facility] CHEM PANEL ALT 330 0 - 65 09/19/2013 [facility] CHEM PANEL Potassium Lvl 3.5 3.5 - 5.1 09/19/2013 [facility] CHEM PANEL Sodium Lvl 136 135 - 145 09/19/2013 [facility] CHEM PANEL Chloride Lvl 102 95 - 109 09/19/2013 [facility] CHEM PANEL Magnesium Lvl 1.9 1.8 - 2.4 09/19/2013 [facility] HEMATOLOGY Platelet 300 133 - 450 09/19/2013 [facility] HEMATOLOGY MCHC 33.9 32.0 - 36.0 09/19/2013 [facility] MCH 31.9 27.0 - 31.0 09/19/2013 [facility] HEMATOLOGY MPV 9.0 7.4 - 10.4 09/19/2013 [facility] HEMATOLOGY RDW 13.7 11.5 - 14.5 09/19/2013 [facility] HEMATOLOGY Hct 35.9 36.0 - 48.0 09/19/2013 [facility] HEMATOLOGY Hgb 12.2 12.0 - 16.0 09/19/2013 [facility] HEMATOLOGY RBC 3.81 4.20 - 5.40 09/19/2013 [facility] HEMATOLOGY MCV 94.2 81.0 - 99.0 09/19/2013 [facility] HEMATOLOGY WBC 5.8 3.7 - 10.4 09/19/2013 [facility] HEMATOLOGY Basophils 0.3 0.0 - 1.0 09/19/2013 [facility] HEMATOLOGY Monocytes 7.2 2.0 - 12.0 09/19/2013 [facility] HEMATOLOGY Segs-Bands # 3.4 1.5 - 8.1 09/19/2013 [facility] HEMATOLOGY Lymphocytes 30.1 20.0 - 40.0 09/19/2013 [facility] HEMATOLOGY Segs 58.4 45.0 - 75.0 09/19/2013 [facility] HEMATOLOGY Monocytes # 0.4 0.0 - 0.8 09/19/2013 [facility] HEMATOLOGY Lymphocytes # 1.7 1.0 - 5.5 09/19/2013 [facility] HEMATOLOGY Basophils # 0.0 0.0 - 0.2 09/19/2013 [facility] HEMATOLOGY Eosinophils # 0.2 0.0 - 0.5 09/19/2013 [facility] HEMATOLOGY Eosinophils 4.0 0.0 - 4.0 09/19/2013 [facility] CHEM PANEL eGFR 111 09/13/2013 <sup>3</sup>Result Comment: The eGFR is calculated using the CKD-EPI formula. In most young, healthy individuals the eGFR will be >90 mL/min/1.73m2. The eGFR declines with age. An eGFR of 60-89 may be normal in some populations, particularly the elderly, for whom the CKD-EPI formula has not been extensively validated. Use of the eGFR is not recommended in the following populations:& lt;br/>
Individuals with unstable creatinine concentrations, including patients and those with serious co-morbid conditions.

Patients with extremes in muscle mass or diet.

The data above are obtained from the National Kidney Disease Education Program (NKDEP) which additionally recommends that when the eGFR is used in patients with extremes of body mass index for purposes of drug dosing, the eGFR should be multiplied by the estimated BMI. [facility] CHEM PANEL AGAP 12.9 10.0 - 20.0 09/13/2013 [facility] CHEM PANEL CO2 27 24 - 32 09/13/2013 [facility] CHEM PANEL Calcium Lvl 8.6 8.5 - 10.5 09/13/2013 [facility] CHEM PANEL Creatinine Lvl 0.7 0.5 - 1.4 09/13/2013 [facility] CHEM PANEL Chloride Lvl 105 95 - 109 09/13/2013 [facility] CHEM PANEL BUN 9 7 - 22 09/13/2013 [facility] CHEM PANEL Potassium Lvl 3.9 3.5 - 5.1 09/13/2013 [facility] CHEM PANEL Sodium Lvl 141 135 - 145 09/13/2013 [facility] CHEM PANEL Glucose Lvl 126 70 - 99 09/13/2013 <sup>6</sup>Interpretive Data: Adult ref erence range values reflect the clinical guidelines
of the [place] [employer]. [facility] ELECTROLYTES Potassium Lvl 3.6 3.5 - 5.1 09/13/2013 [facility] ANEMIA STUDY Iron 41 30 - 160 09/13/2013 [facility] ANEMIA STUDY TIBC 415 228 - 428 09/13/2013 [facility] ANEMIA STUDY % Satur Fe 10 12 - 57 09/13/2013 [facility] ANEMIA STUDY UIBC 374 110 - 370 09/13/2013 [facility] ANEMIA STUDY Vitamin B12 Lvl 158 254 - 1320 09/13/2013 [facility] BLOOD BANK RESULTS ABO/Rh O POS 09/13/2013 [facility] BLOOD BANK RESULTS Antibody Scrn Negative (09/12/13 9:45 PM) 09/13/2013 [facility] CHEM PANEL Bili Direct <0.1 0.0 - 0.3 09/13/2013 [facility] CHEM PANEL Magnesium Lvl 1.9 1.8 - 2.4 09/13/2013 [facility] CHEM PANEL Phosphorus 5.3 2.5 - 4.5 09/13/2013 [facility] CHEM PANEL Lipase Lvl 92 73 - 393 09/13/2013 [facility] CHEM PANEL Amylase Lvl 29 25 - 115 09/13/2013 [facility] CHEM PANEL Creatinine Lvl <0.1 mg/dL 0.5 - 1.4 09/13/2013 [facility] CHEM PANEL BUN 11 7 - 22 09/13/2013 [facility] CHEM PANEL Glucose Lvl 63 70 - 99 09/13/2013 <sup>7</sup>Interpretive Data: Adult ref erence range values reflect the clinical guidelines
of the [place] [employer]. [facility] CHEM PANEL Bili Total <0.1 mg/dL 0.2 - 1.3 09/13/2013 [facility] CHEM PANEL ASPARTATE TRANSAMINASE 82 0 - 37 09/13/2013 [facility] CHEM PANEL Alk Phos 225 39 - 136 09/13/2013 [facility] CHEM PANEL A/G Ratio 1.0 0.7 - 1.6 09/13/2013 [facility] CHEM PANEL ALANINE AMINOTRANSFERASE 119 0 - 65 09/13/2013 [facility] CHEM PANEL Globulin 4.0 2.0 - 4.0 09/13/2013 [facility] CHEM PANEL Albumin Lvl 3.9 3.5 - 5.0 09/13/2013 [facility] CHEM PANEL Calcium Lvl 8.6 8.5 - 10.5 09/13/2013 [facility] CHEM PANEL Total Protein 7.9 6.4 - 8.4 09/13/2013 [facility] CHEM PANEL AGAP 13.6 10.0 - 20.0 09/13/2013 [facility] CHEM PANEL CO2 30 24 - 32 09/13/2013 [facility] CHEM PANEL Chloride Lvl 101 95 - 109 09/13/2013 [facility] CHEM PANEL Potassium Lvl See N ote 1, 2 (09/12/13 9:45 PM) 3.5 - 5.1 09/13/2013 <sup>1</sup>Result Comment: Sample is hemolyzed. Recollect to obtain potassium result. Correction called to Calli at 09/12/2013 23:25 by hb.

Critical Result(s) called to SILAS HALEY at 09/12/2013 22:42 by CV. Read back OK.
Note: Sample is hemolyzed notified JE at 09/12/2013 22:42.
<sup>2</sup>Result Comment: Critical Result(s) called to SILAS HALEY at 09/12/2013 22:42 by CV. Read back OK.
Note: Sample is hemolyzed notified CHASE at 09/12/2013 22:42. [facility] CHEM PANEL Sodium Lvl 136 135 - 145 09/13/2013 [facility] CHEM PANEL B/C Ratio See N ote 5 (09/12/13 9:45 PM) 6 - 25 09/13/2013 <sup>5</sup>Result Comment: BUN/Cre is 110. Result may not be accurate. Redraw is recommended due to sample is hemolyzed. Notified Karen Haley at 09/12/2013 22:42 [facility] CHEM PANEL eGFR See N ote 4 (09/12/13 9:45 PM) 09/13/2013 <sup>4</sup>Result Comment: The eGFR result of 889 should be interpreted with caution due to Hemolyzed Sample. Report called to Silas Haley by CV at 09/12/2013 22:58. Recollection is recommended. Read Back Ok. [facility] HEMATOLOGY Retic Auto 1.1 0.5 - 1.5 09/13/2013 [facility] HEMATOLOGY Lymphocytes # 1.7 1.0 - 5.5 09/13/2013 [facility] HEMATOLOGY Basophils # 0.0 0.0 - 0.2 09/13/2013 [facility] HEMATOLOGY Eosinophils # 0.3 0.0 - 0.5 09/13/2013 [facility] HEMATOLOGY Monocytes # 0.3 0.0 - 0.8 09/13/2013 [facility] HEMATOLOGY Lymphocytes 37.3 20.0 - 40.0 09/13/2013 [facility] Segs 48.8 45.0 - 75.0 09/13/2013 [facility] Plt Morph Ashlee l (09/12/13 9:45 PM) 09/13/2013 [facility] RBC Morph Ashlee l (09/12/13 9:45 PM) 09/13/2013 [facility] Segs-Bands # 2.3 1.5 - 8.1 09/13/2013 [facility] Basophils 0.8 0.0 - 1.0 09/13/2013 [facility] Eosinophils 7.1 0.0 - 4.0 09/13/2013 [facility] Monocytes 6.0 2.0 - 12.0 09/13/2013 [facility] PTT 30.3 22.9 - 35.8 09/13/2013 <sup>9</sup>Interpretive Data: Heparin T herapeutic Range: 57 - 92 Seconds [facility] INR 0.96 0.85 - 1.17 09/13/2013 <sup>8</sup>Interpretive Data: RECOMMEND ED RANGES FOR PROTIME INR:
2.0-3.0 for most medical and surgical thromboembolic states.
2.5-3.5 for artificial heart valves and recurrent embolism.

INR SHOULD BE USED ONLY FOR PATIENTS ON STABLE ANTICOAGULANT THERAPY. [facility] PT 12.7 12.0 - 14.7 09/13/2013 [facility] MPV 10.5 7.4 - 10.4 09/13/2013 [facility] Platelet 302 133 - 450 09/13/2013 [facility] RDW 14.4 11.5 - 14.5 09/13/2013 [facility] MCH 31.8 27.0 - 31.0 09/13/2013 [facility] MCV 96.0 81.0 - 99.0 09/13/2013 [facility] Hct 35.2 36.0 - 48.0 09/13/2013 [facility] WBC 4.7 3.7 - 10.4 09/13/2013 [facility] MCHC 33.1 32.0 - 36.0 09/13/2013 [facility] RBC 3.66 4.20 - 5.40 09/13/2013 [facility] Hgb 11.6 12.0 - 16.0 09/13/2013 [facility] URINE AND STOOL UA Urobilinogen <=1.0 mg/dL 0.1 - 1.0 09/12/2013 [facility] URINE AND STOOL UA Color Ltyellow 09/12/2013 [facility] URINE AND STOOL UA Turbidity Clear (09/12/13 5:35 PM) Clear 09/12/2013 [facility] URINE AND STOOL UA Spec Grav 1.006 <=1.030 09/12/2013 [facility] URINE AND STOOL UA Bili Negative *NA* (09/12/13 5:35 PM) Negative 09/12/2013 [facility] URINE AND STOOL UA Ketones Negative mg/dL Negative mg/dL 09/12/2013 [facility] URINE AND STOOL UA Sq Epi Occasional /LPF Few /LPF 09/12/2013 [facility] URINE AND STOOL UA Leuk Est Large *ABN* (09/12/13 5:35 PM) Negative 09/12/2013 [facility] URINE AND STOOL UA RBC <1 0 - 2 09/12/2013 [facility] URINE AND STOOL UA Glucose Negative mg/dL Negative mg/dL 09/12/2013 [facility] URINE AND STOOL UA Protein Negative mg/dL Negative mg/dL 09/12/2013 [facility] URINE AND STOOL UA pH 7.0 5.0 - 8.0 09/12/2013 [facility] URINE AND STOOL UA Nitrite Negative (09/12/13 5:35 PM) Negative 09/12/2013 [facility] URINE AND STOOL UA Blood Negative (09/12/13 5:35 PM) Negative 09/12/2013 [facility] URINE AND STOOL UA WBC 29 0 - 5 09/12/2013 [facility] URINE CHEM U Preg Negat jose maria (09/12/13 5:35 PM) Negative 09/12/2013 [facility] CHEM PANEL B/C Ratio 8 6 - 25 09/10/2013 [facility] CHEM PANEL Globulin 2.4 2.0 - 4.0 09/10/2013 [facility] CHEM PANEL A/G Ratio 1.2 0.7 - 1.6 09/10/2013 [facility] CHEM PANEL eGFR 117 09/10/2013 <sup>1</sup>Result Comment: The eGFR is calculated using the CKD-EPI formula. In most young, healthy individuals the eGFR will be >90 mL/min/1.73m2. The eGFR declines with age. An eGFR of 60-89 may be normal in some populations, particularly the elderly, for whom the CKD-EPI formula has not been extensively validated. Use of the eGFR is not recommended in the following populations:& lt;br/>
Individuals with unstable creatinine concentrations, including patients and those with serious co-morbid conditions.

Patients with extremes in muscle mass or diet.

The data above are obtained from the National Kidney Disease Education Program (NKDEP) which additionally recommends that when the eGFR is used in patients with extremes of body mass index for purposes of drug dosing, the eGFR should be multiplied by the estimated BMI. [facility] CHEM PANEL Potassium Lvl 3.7 3.5 - 5.1 09/10/2013 [facility] CHEM PANEL Chloride Lvl 108 95 - 109 09/10/2013 [facility] CHEM PANEL AST 20 0 - 37 09/10/2013 [facility] CHEM PANEL AGAP 10.7 10.0 - 20.0 09/10/2013 [facility] CHEM PANEL Alk Phos 199 39 - 136 09/10/2013 [facility] CHEM PANEL Bili Total 0.2 0.2 - 1.3 09/10/2013 [facility] CHEM PANEL CO2 29 24 - 32 09/10/2013 [facility] CHEM PANEL Calcium Lvl 8.6 8.5 - 10.5 09/10/2013 [facility] CHEM PANEL Total Protein 5.4 6.4 - 8.4 09/10/2013 [facility] CHEM PANEL Albumin Lvl 3.0 3.5 - 5.0 09/10/2013 [facility] CHEM PANEL ALT 95 0 - 65 09/10/2013 [facility] CHEM PANEL Creatinine Lvl 0.6 0.5 - 1.4 09/10/2013 [facility] CHEM PANEL Sodium Lvl 144 135 - 145 09/10/2013 [facility] CHEM PANEL Glucose Lvl 81 70 - 99 09/10/2013 <sup>4</sup>Interpretive Data: Adult ref erence range values reflect the clinical guidelines
of the [employer] [employer]. [facility] CHEM PANEL BUN 5 7 - 22 09/10/2013 [facility] CHEM PANEL Bili Direct <0.1 0.0 - 0.3 09/10/2013 [facility] CHEM PANEL Alk Phos 224 39 - 136 09/08/2013 [facility] CHEM PANEL AST 42 0 - 37 09/08/2013 [facility] CHEM PANEL ALT 136 0 - 65 09/08/2013 [facility] CHEM PANEL Bili Direct <0.1 0.0 - 0.3 09/08/2013 [facility] CHEM PANEL Bili Total 0.1 0.2 - 1.3 09/08/2013 [facility] CHEM PANEL Bili Indirect >0.0 0.0 - 1.0 09/08/2013 [facility] CHEM PANEL A/G Ratio 1.2 0.7 - 1.6 09/08/2013 [facility] CHEM PANEL Globulin 2.6 2.0 - 4.0 09/08/2013 [facility] CHEM PANEL Albumin Lvl 3.0 3.5 - 5.0 09/08/2013 [facility] CHEM PANEL Total Protein 5.6 6.4 - 8.4 09/08/2013 [facility] CHEM PANEL Alk Phos 268 39 - 136 09/07/2013 [facility] CHEM PANEL AST 31 0 - 37 09/07/2013 [facility] CHEM PANEL ALT 177 0 - 65 09/07/2013 [facility] CHEM PANEL Globulin 2.9 2.0 - 4.0 09/07/2013 [facility] CHEM PANEL A/G Ratio 1.2 0.7 - 1.6 09/07/2013 [facility] CHEM PANEL Bili Indirect >0.1 0.0 - 1.0 09/07/2013 [facility] CHEM PANEL Bili Total 0.2 0.2 - 1.3 09/07/2013 [facility] CHEM PANEL Bili Direct <0.1 0.0 - 0.3 09/07/2013 [facility] CHEM PANEL Total Protein 6.4 6.4 - 8.4 09/07/2013 [facility] CHEM PANEL Albumin Lvl 3.5 3.5 - 5.0 09/07/2013 [facility] CHEM PANEL Bili Indirect >0.2 0.0 - 1.0 09/06/2013 [facility] CHEM PANEL eGFR 117 09/04/2013 <sup>2</sup>Result Comment: The eGFR is calculated using the CKD-EPI formula. In most young, healthy individuals the eGFR will be >90 mL/min/1.73m2. The eGFR declines with age. An eGFR of 60-89 may be normal in some populations, particularly the elderly, for whom the CKD-EPI formula has not been extensively validated. Use of the eGFR is not recommended in the following populations:& lt;br/>
Individuals with unstable creatinine concentrations, including patients and those with serious co-morbid conditions.

Patients with extremes in muscle mass or diet.

The data above are obtained from the National Kidney Disease Education Program (NKDEP) which additionally recommends that when the eGFR is used in patients with extremes of body mass index for purposes of drug dosing, the eGFR should be multiplied by the estimated BMI. [facility] CHEM PANEL Sodium Lvl 141 135 - 145 09/04/2013 [facility] CHEM PANEL Glucose Lvl 73 70 - 99 09/04/2013 <sup>5</sup>Interpretive Data: Adult ref erence range values reflect the clinical guidelines
of the [place] [employer]. [facility] CHEM PANEL BUN 3 7 - 22 09/04/2013 [facility] CHEM PANEL Creatinine Lvl 0.6 0.5 - 1.4 09/04/2013 [facility] CHEM PANEL AGAP 11.1 10.0 - 20.0 09/04/2013 [facility] CHEM PANEL B/C Ratio 5 6 - 25 09/04/2013 [facility] CHEM PANEL Calcium Lvl 8.1 8.5 - 10.5 09/04/2013 [facility] CHEM PANEL Potassium Lvl 4.1 3.5 - 5.1 09/04/2013 [facility] CHEM PANEL CO2 25 24 - 32 09/04/2013 [facility] CHEM PANEL Chloride Lvl 109 95 - 109 09/04/2013 [facility] CHEM PANEL HSV 1 IgM NEGATIVE 09/04/2013 [facility] CHEM PANEL HSV 2 IgM NEGATIVE 09/04/2013 <sup>9</sup>Result Comment: REFERENCE RA NGE: NEGATIVE

The IFA procedure for measuring IgM antibodies to
HSV 1 and HSV 2 detects both type- common and
type- specific HSV antibodies. Thus, IgM
reactivity to both HSV 1 and HSV 2 may represent
crossreactive HSV antibodies rather than exposure
to both HSV 1 and HSV 2.

This test was developed and its performance
characteristics have been determined by [employer]. Performance characteristics refer to
the analytical performance of the test.
Test Performed at:
[facility]
[address] [place] [address] Deni Meng MD [facility] CMV IgM 0.1 09/04/2013 <sup>10</sup>Interpretive Data: Reference Ranges:
Non-reactive: <0.9 S/CO Ratio
Indeterminate: 0.9 - 1.0 S/CO Ratio
Reactive: >=1.1 S/CO Ratio [facility] A-1-AT 129 83 - 199 09/04/2013 [facility] AMA Ab Scr Negat jose maria (09/04/13 5:28 AM) Negative 09/04/2013 [facility] SMA Screen Negat jose maria (09/04/13 5:28 AM) Negative 09/04/2013 [facility] LIVER KIDNEY MICROSOME AB S. <20.0 09/04/2013 <sup>11</sup>Result Comment: Reference Range:
<=20.0 NEGATIVE
20.1-24.9 EQUIVOCAL
[...] with
hepatitis C infection.
Test Performed at:
[email or web address]
[id number] [place] [address] Néstor Gomez MD, PhD [facility] Ceruloplasmin 22 20 - 60 09/04/2013 [facility] CHEM PANEL eGFR 117 09/03/2013 <sup>3</sup>Result Comment: The eGFR is calculated using the CKD-EPI formula. In most young, healthy individuals the eGFR will be >90 mL/min/1.73m2. The eGFR declines with age. An eGFR of 60-89 may be normal in some populations, particularly the elderly, for whom the CKD-EPI formula has not been extensively validated. Use of the eGFR is not recommended in the following populations:& lt;br/>
Individuals with unstable creatinine concentrations, including patients and those with serious co-morbid conditions.

Patients with extremes in muscle mass or diet.

The data above are obtained from the National Kidney Disease Education Program (NKDEP) which additionally recommends that when the eGFR is used in patients with extremes of body mass index for purposes of drug dosing, the eGFR should be multiplied by the estimated BMI. [facility] CHEM PANEL Chloride Lvl 112 95 - 109 09/03/2013 [facility] CHEM PANEL CO2 27 24 - 32 09/03/2013 [facility] CHEM PANEL Calcium Lvl 8.1 8.5 - 10.5 09/03/2013 [facility] CHEM PANEL BUN 6 7 - 22 09/03/2013 [facility] CHEM PANEL Sodium Lvl 141 135 - 145 09/03/2013 [facility] CHEM PANEL Creatinine Lvl 0.6 0.5 - 1.4 09/03/2013 [facility] CHEM PANEL Potassium Lvl 4.0 3.5 - 5.1 09/03/2013 [facility] CHEM PANEL Glucose Lvl 61 70 - 99 09/03/2013 <sup>6</sup>Interpretive Data: Adult ref erence range values reflect the clinical guidelines
of the [place] [employer]. [facility] CHEM PANEL AGAP 6.0 10.0 - 20.0 09/03/2013 [facility] CHEM PANEL B/C Ratio 10 6 - 25 09/03/2013 [facility] HEMATOLOGY Anisocyte 1+ *ABN* (09/03/13 6:34 AM) None Seen 09/03/2013 [facility] HEMATOLOGY Elliptocyte Sligh t *ABN* (09/03/13 6:34 AM) None Seen 09/03/2013 [facility] HEMATOLOGY Basophils # 0.0 0.0 - 0.2 09/03/2013 [facility] HEMATOLOGY Eosinophils # 0.2 0.0 - 0.5 09/03/2013 [facility] Monocytes # 0.2 0.0 - 0.8 09/03/2013 [facility] Eosinophils 6.3 0.0 - 4.0 09/03/2013 [facility] Basophils 1.0 0.0 - 1.0 09/03/2013 [facility] HEMATOLOGY Lymphocytes # 2.2 1.0 - 5.5 09/03/2013 [facility] HEMATOLOGY Segs-Bands # 0.7 1.5 - 8.1 09/03/2013 [facility] HEMATOLOGY Lymphocytes 64.7 20.0 - 40.0 09/03/2013 [facility] HEMATOLOGY Monocytes 5.8 2.0 - 12.0 09/03/2013 [facility] HEMATOLOGY Plt Morph Ashlee l (09/03/13 6:34 AM) 09/03/2013 [facility] HEMATOLOGY Segs 22.2 45.0 - 75.0 09/03/2013 [facility] HEMATOLOGY MPV 10.2 7.4 - 10.4 09/03/2013 [facility] HEMATOLOGY RBC 2.94 4.20 - 5.40 09/03/2013 [facility] HEMATOLOGY Hgb 9.6 12.0 - 16.0 09/03/2013 [facility] Hct 28.0 36.0 - 48.0 09/03/2013 [facility] MCV 95.2 81.0 - 99.0 09/03/2013 [facility] MCH 32.5 27.0 - 31.0 09/03/2013 [facility] MCHC 34.2 32.0 - 36.0 09/03/2013 [facility] Platelet 195 133 - 450 09/03/2013 [facility] HEMATOLOGY RDW 14.2 11.5 - 14.5 09/03/2013 [facility] HEMATOLOGY WBC 3.4 3.7 - 10.4 09/03/2013 [facility] IMMUNOLOGY Hep B Core IgM Negat jose maria *NA* (09/03/13 6:34 AM) Negative 09/03/2013 [facility] IMMUNOLOGY Hep A IgM Negat jose maria *NA* (09/03/13 6:34 AM) Negative 09/03/2013 [facility] IMMUNOLOGY Hep Bs Ag Negat jose maria *NA* (09/03/13 6:34 AM) Negative 09/03/2013 [facility] IMMUNOLOGY Hep C Ab Negat jose maria *NA* (09/03/13 6:34 AM) Negative 09/03/2013 [facility] IMMUNOLOGY MARVIN Negat jose maria (09/03/13 6:34 AM) Negative 09/03/2013 [facility] CHEM PANEL Lipase Lvl 170 73 - 393 09/02/2013 <sup>8</sup>Result Comment: Collection d ate/time has been modified to: 00:53:00. Previous collection date/time: 00:53:00. [facility] CHEM PANEL Amylase Lvl 54 25 - 115 09/02/2013 <sup>7</sup>Result Comment: Collection d ate/time has been modified to: 00:53:00. Previous collection date/time: 00:53:00. [facility] HEMATOLOGY Segs 33.4 45.0 - 75.0 09/02/2013 <sup>22</sup>Result Comment: Collection date/time has been modified to: 00:53:00. Previous collection date/time: 00:53:00. [facility] HEMATOLOGY Monocytes 8.5 2.0 - 12.0 09/02/2013 <sup>24</sup>Result Comment: Collection date/time has been modified to: 00:53:00. Previous collection date/time: 00:53:00. [facility] HEMATOLOGY Lymphocytes 54.8 20.0 - 40.0 09/02/2013 <sup>23</sup>Result Comment: Collection date/time has been modified to: 00:53:00. Previous collection date/time: 00:53:00. [facility] HEMATOLOGY Eosinophils # 0.1 0.0 - 0.5 09/02/2013 <sup>30</sup>Result Comment: Collection date/time has been modified to: 00:53:00. Previous collection date/time: 00:53:00. [facility] HEMATOLOGY Basophils # 0.0 0.0 - 0.2 09/02/2013 <sup>31</sup>Result Comment: Collection date/time has been modified to: 00:53:00. Previous collection date/time: 00:53:00. [facility] HEMATOLOGY Segs-Bands # 1.7 1.5 - 8.1 09/02/2013 <sup>27</sup>Result Comment: Collection date/time has been modified to: 00:53:00. Previous collection date/time: 00:53:00. [facility] Monocytes # 0.4 0.0 - 0.8 09/02/2013 <sup>29</sup>Result Comment: Collection date/time has been modified to: 00:53:00. Previous collection date/time: 00:53:00. [facility] Basophils 0.5 0.0 - 1.0 09/02/2013 <sup>26</sup>Result Comment: Collection date/time has been modified to: 00:53:00. Previous collection date/time: 00:53:00. [facility] Lymphocytes # 2.8 1.0 - 5.5 09/02/2013 <sup>28</sup>Result Comment: Collection date/time has been modified to: 00:53:00. Previous collection date/time: 00:53:00. [facility] Eosinophils 2.8 0.0 - 4.0 09/02/2013 <sup>25</sup>Result Comment: Collection date/time has been modified to: 00:53:00. Previous collection date/time: 00:53:00. [facility] MPV 10.2 7.4 - 10.4 09/02/2013 <sup>21</sup>Result Comment: Collection date/time has been modified to: 00:53:00. Previous collection date/time: 00:53:00. [facility] Platelet 288 133 - 450 09/02/2013 <sup>20</sup>Result Comment: Collection date/time has been modified to: 00:53:00. Previous collection date/time: 00:53:00. [facility] RBC 3.93 4.20 - 5.40 09/02/2013 <sup>13</sup>Result Comment: Collection date/time has been modified to: 00:53:00. Previous collection date/time: 00:53:00. [facility] Hgb 12.5 12.0 - 16.0 09/02/2013 <sup>14</sup>Result Comment: Collection date/time has been modified to: 00:53:00. Previous collection date/time: 00:53:00. [facility] WBC 5.0 3.7 - 10.4 09/02/2013 <sup>12</sup>Result Comment: Collection date/time has been modified to: 00:53:00. Previous collection date/time: 00:53:00. [facility] MCHC 33.7 32.0 - 36.0 09/02/2013 <sup>18</sup>Result Comment: Collection date/time has been modified to: 00:53:00. Previous collection date/time: 00:53:00. [facility] MCH 31.9 27.0 - 31.0 09/02/2013 <sup>17</sup>Result Comment: Collection date/time has been modified to: 00:53:00. Previous collection date/time: 00:53:00. [facility] RDW 14.0 11.5 - 14.5 09/02/2013 <sup>19</sup>Result Comment: Collection date/time has been modified to: 00:53:00. Previous collection date/time: 00:53:00. [facility] MCV 94.6 81.0 - 99.0 09/02/2013 <sup>16</sup>Result Comment: Collection date/time has been modified to: 00:53:00. Previous collection date/time: 00:53:00. [facility] Hct 37.2 36.0 - 48.0 09/02/2013 <sup>15</sup>Result Comment: Collection date/time has been modified to: 00:53:00. Previous collection date/time: 00:53:00. [facility] URINE AND STOOL UA Sq Epi Occasional /LPF Few /LPF 09/02/2013 [facility] URINE AND STOOL UA Leuk Est Small *ABN* (09/01/13 11:24 PM) Negative 09/02/2013 [facility] URINE AND STOOL UA Blood Negative (09/01/13 11:24 PM) Negative 09/02/2013 [facility] URINE AND STOOL UA Bili Negative *NA* (09/01/13 11:24 PM) Negative 09/02/2013 [facility] URINE AND STOOL UA Ketones Negative mg/dL Negative mg/dL 09/02/2013 [facility] URINE AND STOOL UA pH 5.0 5.0 - 8.0 09/02/2013 [facility] URINE AND STOOL UA Nitrite Negative (09/01/13 11:24 PM) Negative 09/02/2013 [facility] URINE AND STOOL UA Protein Negative mg/dL Negative mg/dL 09/02/2013 [facility] URINE AND STOOL UA Glucose Negative mg/dL Negative mg/dL 09/02/2013 [facility] URINE AND STOOL UA WBC 8 0 - 5 09/02/2013 [facility] URINE AND STOOL UA RBC <1 0 - 2 09/02/2013 [facility] URINE AND STOOL UA Color Ltyellow 09/02/2013 [facility] URINE AND STOOL UA Urobilinogen <=1.0 mg/dL 0.1 - 1.0 09/02/2013 [facility] URINE AND STOOL UA Spec Grav 1.020 <=1.030 09/02/2013 [facility] URINE AND STOOL UA Turbidity Clear (09/01/13 11:24 PM) Clear 09/02/2013 [facility] URINE CHEM U Preg Negat jose maria (09/01/13 11:24 PM) Negative 09/02/2013 [facility] CHEM PANEL Calcium Lvl 8.9 8.5 - 10.5 09/01/2013 [facility] CHEM PANEL Bili Total 0.1 0.2 - 1.3 09/01/2013 [facility] CHEM PANEL eGFR 111 09/01/2013 <sup>1</sup>Result Comment: The eGFR is calculated using the CKD-EPI formula. In most young, healthy individuals the eGFR will be >90 mL/min/1.73m2. The eGFR declines with age. An eGFR of 60-89 may be normal in some populations, particularly the elderly, for whom the CKD-EPI formula has not been extensively validated. Use of the eGFR is not recommended in the following populations:& lt;br/>
Individuals with unstable creatinine concentrations, including patients and those with serious co-morbid conditions.

Patients with extremes in muscle mass or diet.

The data above are obtained from the National Kidney Disease Education Program (NKDEP) which additionally recommends that when the eGFR is used in patients with extremes of body mass index for purposes of drug dosing, the eGFR should be multiplied by the estimated BMI. [facility] CHEM PANEL AST 219 0 - 37 09/01/2013 [facility] CHEM PANEL Total Protein 6.9 6.4 - 8.4 09/01/2013 [facility] CHEM PANEL CO2 25 24 - 32 09/01/2013 [facility] CHEM PANEL Chloride Lvl 105 95 - 109 09/01/2013 [facility] CHEM PANEL Creatinine Lvl 0.7 0.5 - 1.4 09/01/2013 [facility] CHEM PANEL Sodium Lvl 139 135 - 145 09/01/2013 [facility] CHEM PANEL Potassium Lvl 3.4 3.5 - 5.1 09/01/2013 [facility] CHEM PANEL BUN 12 7 - 22 09/01/2013 [facility] CHEM PANEL ALT 535 0 - 65 09/01/2013 [facility] CHEM PANEL Glucose Lvl 95 70 - 99 09/01/2013 <sup>2</sup>Interpretive Data: Adult ref erence range values reflect the clinical guidelines
of the [place] [employer]. [facility] CHEM PANEL Albumin Lvl 3.8 3.5 - 5.0 09/01/2013 [facility] CHEM PANEL Alk Phos 314 39 - 136 09/01/2013 [facility] CHEM PANEL B/C Ratio 17 6 - 25 09/01/2013 [facility] CHEM PANEL A/G Ratio 1.2 0.7 - 1.6 09/01/2013 [facility] CHEM PANEL Globulin 3.1 2.0 - 4.0 09/01/2013 [facility] CHEM PANEL AGAP 12.4 10.0 - 20.0 09/01/2013 [facility] HEMATOLOGY Eosinophils # 0.2 0.0 - 0.5 09/01/2013 [facility] HEMATOLOGY Basophils # 0.0 0.0 - 0.2 09/01/2013 [facility] HEMATOLOGY Basophils 0.7 0.0 - 1.0 09/01/2013 [facility] HEMATOLOGY Lymphocytes # 2.1 1.0 - 5.5 09/01/2013 [facility] HEMATOLOGY Segs-Bands # 0.5 1.5 - 8.1 09/01/2013 [facility] HEMATOLOGY Monocytes # 0.2 0.0 - 0.8 09/01/2013 [facility] HEMATOLOGY Lymphocytes 66.6 20.0 - 40.0 09/01/2013 [facility] HEMATOLOGY Segs 16.9 45.0 - 75.0 09/01/2013 [facility] HEMATOLOGY Monocytes 8.1 2.0 - 12.0 09/01/2013 [facility] HEMATOLOGY Eosinophils 7.7 0.0 - 4.0 09/01/2013 [facility] MCHC 33.6 32.0 - 36.0 09/01/2013 [facility] MCH 31.7 27.0 - 31.0 09/01/2013 [facility] HEMATOLOGY Platelet 263 133 - 450 09/01/2013 [facility] HEMATOLOGY RDW 13.7 11.5 - 14.5 09/01/2013 [facility] HEMATOLOGY Hgb 11.4 12.0 - 16.0 09/01/2013 [facility] HEMATOLOGY RBC 3.58 4.20 - 5.40 09/01/2013 [facility] Hct 33.8 36.0 - 48.0 09/01/2013 [facility] HEMATOLOGY MCV 94.3 81.0 - 99.0 09/01/2013 [facility] HEMATOLOGY MPV 10.1 7.4 - 10.4 09/01/2013 [facility] HEMATOLOGY WBC 3.1 3.7 - 10.4 09/01/2013 [facility] IMMUNOLOGY CDC HIV 4th GEN Negat jose maria (09/01/13 12:53 AM) Negative 09/01/2013 [facility] URINE AND STOOL UA Color Ltyellow 09/01/2013 [facility] URINE AND STOOL UA Urobilinogen <=1.0 mg/dL 0.1 - 1.0 09/01/2013 [facility] URINE AND STOOL UA WBC 1 0 - 5 09/01/2013 [facility] URINE AND STOOL UA RBC 1 0 - 2 09/01/2013 [facility] URINE AND STOOL UA Sq Epi Occasional /LPF Few /LPF 09/01/2013 [facility] URINE AND STOOL UA Glucose Negative mg/dL Negative mg/dL 09/01/2013 [facility] URINE AND STOOL UA Ketones Negative mg/dL Negative mg/dL 09/01/2013 [facility] URINE AND STOOL UA pH 5.0 5.0 - 8.0 09/01/2013 [facility] URINE AND STOOL UA Protein Negative mg/dL Negative mg/dL 09/01/2013 [facility] URINE AND STOOL UA Bili Negative *NA* (08/31/13 11:50 PM) Negative 09/01/2013 [facility] URINE AND STOOL UA Nitrite Negative (08/31/13 11:50 PM) Negative 09/01/2013 [facility] URINE AND STOOL UA Leuk Est Trace *ABN* (08/31/13 11:50 PM) Negative 09/01/2013 [facility] URINE AND STOOL UA Blood Negative (08/31/13 11:50 PM) Negative 09/01/2013 [facility] URINE AND STOOL UA Turbidity Clear (08/31/13 11:50 PM) Clear 09/01/2013 [facility] URINE AND STOOL UA Spec Grav 1.014 <=1.030 09/01/2013 [facility] URINE CHEM U Preg Negat jose maria (08/31/13 11:50 PM) Negative 09/01/2013 [facility] URINALYSIS UA Bacteria Occas ional /HPF None Seen 06/06/2013 [facility] URINALYSIS UA RBC 1 0 - 2 06/06/2013 Normal [facility] URINALYSIS UA Urobilinogen <=1.0 mg/dL 0.1 - 1.0 06/06/2013 [facility] URINALYSIS UA Color Ltyellow 06/06/2013 [facility] URINALYSIS UA Turbidity Clear (06/05/2013 20:57:00) Clear 06/06/2013 Normal [facility] URINALYSIS UA Spec Grav 1.005 <=1.030 06/06/2013 Normal [facility] URINALYSIS UA pH 7.0 5.0 - 8.0 06/06/2013 Normal [facility] URINALYSIS UA Protein Negat jose maria mg/dL Negative 06/06/2013 [facility] URINALYSIS UA Glucose Negat jose maria mg/dL Negative 06/06/2013 [facility] URINALYSIS UA Bili Negat jose maria *NA* (06/05/2013 20:57:00) Negati ve 06/06/2013 [facility] URINALYSIS UA Blood Negat jose maria (06/05/2013 20:57:00) Negati ve 06/06/2013 [facility] URINALYSIS UA Ketones Negat jose maria mg/dL Negative 06/06/2013 [facility] URINALYSIS UA Nitrite Negat jose maria (06/05/2013 20:57:00) Negati ve 06/06/2013 [facility] URINALYSIS UA WBC 3 0 - 5 06/06/2013 [facility] URINALYSIS UA Leuk Est Moder ate *ABN* (06/05/2013 20:57:00) Negati ve 06/06/2013 ABN [facility] URINALYSIS UA Sq Epi Occas ional /LPF Few 06/06/2013 [facility] VIRAL - SEROLOGY Influ A Negative (06/05/2013 20:41:00) Negati ve 06/06/2013 Normal [facility] VIRAL - SEROLOGY Influ B Negative 1 (06/05/2013 20:41:00) Negati ve 06/06/2013 Normal <sup>1</sup>Interpretive Data: Influenza A&B Antigen:
Due to the low sensitivity of this test a negative result does not exclude influenza virus infection. A diagnosis of influenza should be considered based on a patient's clinical presentation and empiric antiviral treatment should be considered, if indicated. If more conclusive testing is desired, follow-up confirmatory testing with either viral culture or PCR is warranted. [facility] CHEMISTRY Magnesium Lvl 2.0 1.8 - 2.4 06/06/2013 Normal [facility] CHEMISTRY eGFR 94 06/06/2013 <sup>2</sup>Result Comment: The eGFR is calculated using the CKD-EPI formula. In most young, healthy individuals the eGFR will be >90 mL/min/1.73m2. The eGFR declines with age. An eGFR of 60-89 may be normal in some populations, particularly the elderly, for whom the CKD-EPI formula has not been extensively validated. Use of the eGFR is not recommended in the following populations:& lt;br/>
Individuals with unstable creatinine concentrations, including patients and those with serious co-morbid conditions.

Patients with extremes in muscle mass or diet.

The data above are obtained from the National Kidney Disease Education Program (NKDEP) which additionally recommends that when the eGFR is used in patients with extremes of body mass index for purposes of drug dosing, the eGFR should be multiplied by the estimated BMI. [facility] CHEMISTRY ASPARTATE TRANSAMINASE 18 0 - 37 06/06/2013 Normal [facility] CHEMISTRY Potassium Lvl 3.6 3.5 - 5.1 06/06/2013 Normal [facility] CHEMISTRY CO2 30 24 - 32 06/06/2013 Normal [facility] CHEMISTRY Chloride Lvl 106 95 - 109 06/06/2013 Normal [facility] CHEMISTRY ALANINE AMINOTRANSFERASE 5 2 0 - 65 06/06/2013 Normal [facility] CHEMISTRY Albumin Lvl 3.9 3.5 - 5.0 06/06/2013 Normal [facility] CHEMISTRY Calcium Lvl 8.7 8.5 - 10.5 06/06/2013 Normal [facility] CHEMISTRY Sodium Lvl 142 135 - 145 06/06/2013 Normal [facility] CHEMISTRY Creatinine Lvl 0.8 0.5 - 1.4 06/06/2013 Normal [facility] CHEMISTRY Glucose Lvl 106 70 - 99 06/06/2013 [facility] <sup>3</sup>Interpretive Data: Adult ref erence range values reflect the clinical guidelines
of the [place] [employer]. [facility] CHEMISTRY BUN 15 7 - 22 06/06/2013 Normal [facility] CHEMISTRY Alk Phos 139 39 - 136 06/06/2013 [facility] CHEMISTRY Bili Total 0.2 0.2 - 1.3 06/06/2013 Normal [facility] CHEMISTRY Total Protein 7.3 6.4 - 8.4 06/06/2013 Normal [facility] CHEMISTRY B/C Ratio 19 6 - 25 06/06/2013 Normal [facility] CHEMISTRY AGAP 9.6 10.0 - 20.0 06/06/2013 LOW [facility] CHEMISTRY Globulin 3.4 2.0 - 4.0 06/06/2013 Normal [facility] CHEMISTRY A/G Ratio 1.1 0.7 - 1.6 06/06/2013 Normal [facility] HEMATOLOGY Sed Rate 25 0 - 20 06/06/2013 [facility] HEMATOLOGY MCV 94.2 81.0 - 99.0 06/06/2013 Normal [facility] HEMATOLOGY MCHC 32.7 32.0 - 36.0 06/06/2013 Normal [facility] HEMATOLOGY MCH 30.8 27.0 - 31.0 06/06/2013 Normal [facility] HEMATOLOGY RDW 14.2 11.5 - 14.5 06/06/2013 Normal [facility] HEMATOLOGY MPV 9.0 7.4 - 10.4 06/06/2013 Normal [facility] HEMATOLOGY Platelet 317 133 - 450 06/06/2013 Normal [facility] HEMATOLOGY Hgb 12.0 12.0 - 16.0 06/06/2013 Normal [facility] HEMATOLOGY Hct 36.7 36.0 - 48.0 06/06/2013 Normal [facility] HEMATOLOGY RBC X 10x6 3.89 4.20 - 5.40 06/06/2013 LOW [facility] HEMATOLOGY WBC X 10x3 4.2 3.7 - 10.4 06/06/2013 Normal [facility] HEMATOLOGY Lymphocytes # 1.9 1.0 - 5.5 06/06/2013 Normal [facility] HEMATOLOGY Basophils # 0.0 0.0 - 0.2 06/06/2013 Normal [facility] HEMATOLOGY Monocytes # 0.3 0.0 - 0.8 06/06/2013 Normal [facility] HEMATOLOGY Segs 43.2 45.0 - 75.0 06/06/2013 LOW [facility] HEMATOLOGY Eosinophils 2.4 0.0 - 4.0 06/06/2013 Normal [facility] HEMATOLOGY Eosinophils # 0.1 0.0 - 0.5 06/06/2013 Normal [facility] HEMATOLOGY Segs-Bands # 1.8 1.5 - 8.1 06/06/2013 Normal [facility] HEMATOLOGY Basophils 0.7 0.0 - 1.0 06/06/2013 Normal [facility] HEMATOLOGY Monocytes 6.8 2.0 - 12.0 06/06/2013 Normal [facility] HEMATOLOGY Lymphocytes 46.9 20.0 - 40.0 06/06/2013 [facility] CHEMISTRY CK MB Index <0.6 0.0 - 2.5 02/12/2013 Normal [facility] CHEMISTRY Troponin-I <0.02 0.00 - 0.40 02/12/2013 Normal [facility] CHEMISTRY CK MB <0.5 0.5 - 3.6 02/12/2013 Normal [facility] CHEMISTRY Total CK 88 12 - 191 02/12/2013 Normal [facility] CHEMISTRY CK MB Index <0.6 0.0 - 2.5 02/12/2013 Normal [facility] CHEMISTRY Troponin-I <0.02 0.00 - 0.40 02/12/2013 Normal [facility] CHEMISTRY Total CK 86 12 - 191 02/12/2013 Normal [facility] CHEMISTRY CK MB <0.5 0.5 - 3.6 02/12/2013 Normal [facility] CHEMISTRY eGFR 94 02/12/2013 NA <sup>1</sup>Result Comment: The eGFR is calculated using the CKD-EPI formula. In most young, healthy individuals the eGFR will be >90 mL/min/1.73m2. The eGFR declines with age. An eGFR of 60-89 may be normal in some populations, particularly the elderly, for whom the CKD-EPI formula has not been extensively validated. Use of the eGFR is not recommended in the following populations:& lt;br/>
Individuals with unstable creatinine concentrations, including patients and those with serious co-morbid conditions.

Patients with extremes in muscle mass or diet.

The data above are obtained from the National Kid[employer] Disease Education Program (NKDEP) which additionally recommends that when the eGFR is used in patients with extremes of body mass index for purposes of drug dosing, the eGFR should be multiplied by the estimated BMI. [facility] CHEMISTRY Globulin 3.3 2.0 - 4.0 02/12/2013 Normal [facility] CHEMISTRY A/G Ratio 1.3 0.7 - 1.6 02/12/2013 Normal [facility] CHEMISTRY B/C Ratio 15 6 - 25 02/12/2013 Normal [facility] CHEMISTRY AGAP 12.8 10.0 - 20.0 02/12/2013 Normal [facility] CHEMISTRY Alk Phos 152 39 - 136 02/12/2013 [facility] CHEMISTRY Bili Total 0.3 0.2 - 1.3 02/12/2013 Normal [facility] CHEMISTRY AST 14 0 - 37 02/12/2013 Normal [facility] CHEMISTRY Creatinine Lvl 0.8 0.5 - 1.4 02/12/2013 Normal [facility] CHEMISTRY Glucose Lvl 81 70 - 99 02/12/2013 Normal <sup>2</sup>Interpretive Data: Adult ref erence range values reflect the clinical guidelines
of the [place] [employer]. [facility] CHEMISTRY BUN 12 7 - 22 02/12/2013 Normal [facility] CHEMISTRY Total Protein 7.6 6.4 - 8.4 02/12/2013 Normal [facility] CHEMISTRY Albumin Lvl 4.3 3.5 - 5.0 02/12/2013 Normal [facility] CHEMISTRY CO2 28 24 - 32 02/12/2013 Normal [facility] CHEMISTRY Calcium Lvl 9.8 8.5 - 10.5 02/12/2013 Normal [facility] CHEMISTRY ALT 50 0 - 65 02/12/2013 Normal [facility] CHEMISTRY Chloride Lvl 106 95 - 109 02/12/2013 Normal [facility] CHEMISTRY Sodium Lvl 143 135 - 145 02/12/2013 Normal [facility] CHEMISTRY Potassium Lvl 3.8 3.5 - 5.1 02/12/2013 Normal [facility] HEMATOLOGY Basophils # 0.0 0.0 - 0.2 02/12/2013 Normal [facility] HEMATOLOGY Eosinophils # 0.1 0.0 - 0.5 02/12/2013 Normal [facility] HEMATOLOGY Eosinophils 2.2 0.0 - 4.0 02/12/2013 Normal [facility] HEMATOLOGY Lymphocytes # 1.9 1.0 - 5.5 02/12/2013 Normal [facility] HEMATOLOGY Monocytes # 0.3 0.0 - 0.8 02/12/2013 Normal [facility] HEMATOLOGY Monocytes 7.1 2.0 - 12.0 02/12/2013 Normal [facility] HEMATOLOGY Basophils 0.6 0.0 - 1.0 02/12/2013 Normal [facility] HEMATOLOGY Segs-Bands # 1.9 1.5 - 8.1 02/12/2013 Normal [facility] HEMATOLOGY Lymphocytes 44.8 20.0 - 40.0 02/12/2013 [facility] HEMATOLOGY Segs 45.3 45.0 - 75.0 02/12/2013 Normal [facility] HEMATOLOGY MCHC 32.6 32.0 - 36.0 02/12/2013 Normal [facility] HEMATOLOGY MCH 31.0 27.0 - 31.0 02/12/2013 Normal [facility] HEMATOLOGY RDW 14.3 11.5 - 14.5 02/12/2013 Normal [facility] HEMATOLOGY Platelet 324 133 - 450 02/12/2013 Normal [facility] HEMATOLOGY MPV 10.0 7.4 - 10.4 02/12/2013 Normal [facility] HEMATOLOGY WBC 4.3 3.7 - 10.4 02/12/2013 Normal [facility] HEMATOLOGY Hgb 12.5 12.0 - 16.0 02/12/2013 Normal [facility] HEMATOLOGY Hct 38.2 36.0 - 48.0 02/12/2013 Normal [facility] HEMATOLOGY MCV 95.1 81.0 - 99.0 02/12/2013 Normal [facility] HEMATOLOGY RBC 4.02 4.20 - 5.40 02/12/2013 LOW [facility] URINALYSIS UA Color Ltyellow 02/12/2013 NA [facility] URINALYSIS UA Urobilinogen 0.1 - 1.0 02/12/2013 NA [facility] URINALYSIS UA Sq Epi Occas ional /LPF *NA* (02/11/2013 20:54:00) Few 02/12/2013 [facility] URINALYSIS UA Bacteria Few / HPF *NA* (02/11/2013 20:54:00) None S een 02/12/2013 [facility] URINALYSIS UA WBC 7 0 - 5 02/12/2013 [facility] URINALYSIS UA RBC 1 0 - 2 02/12/2013 Normal [facility] URINALYSIS UA Glucose Negat jose maria mg/dL *NA* (02/11/2013 20:54:00) Negati ve 02/12/2013 NA [facility] URINALYSIS UA Spec Grav 1.010 <=1.030 02/12/2013 Normal [facility] URINALYSIS UA Ketones Trace mg/dL *ABN* (02/11/2013 20:54:00) Negati ve 02/12/2013 ABN [facility] URINALYSIS UA Bili Negat jose maria *NA* (02/11/2013 20:54:00) Negati ve 02/12/2013 NA [facility] URINALYSIS UA Blood Negat jose maria (02/11/2013 20:54:00) Negati ve 02/12/2013 Normal [facility] URINALYSIS UA Leuk Est Large *ABN* (02/11/2013 20:54:00) Negati ve 02/12/2013 ABN [facility] URINALYSIS UA Nitrite Negat jose maria (02/11/2013 20:54:00) Negati ve 02/12/2013 Normal [facility] URINALYSIS UA Protein Negat jose maria mg/dL (02/11/2013 20:54:00) Negati ve 02/12/2013 Normal [facility] URINALYSIS UA Turbidity Clear (02/11/2013 20:54:00) Clear 02/12/2013 Normal [facility] URINALYSIS UA pH 5.0 5.0 - 8.0 02/12/2013 Normal [facility] URINALYSIS UA RBC 0-2 / HPF (09/28/2012 00:45:00) 0 - 2 09/28/2012 Normal [facility] URINALYSIS Micro? Perfo rmed (09/28/2012 00:45:00) 09/28/2012 Normal [facility] URINALYSIS UA Leuk Est Small *ABN* (09/28/2012 00:45:00) Negati ve 09/28/2012 ABN [facility] URINALYSIS UA Bacteria Few / HPF (09/28/2012 00:45:00) None S een 09/28/2012 Normal [facility] URINALYSIS UA WBC 6-10 /HPF *ABN* (09/28/2012 00:45:00) None S een 09/28/2012 ABN [facility] URINALYSIS UA Sq Epi Few / LPF (09/28/2012 00:45:00) Few 09/28/2012 Normal [facility] URINALYSIS UA Protein Negat jose maria (09/28/2012 00:45:00) Negati ve 09/28/2012 Normal [facility] URINALYSIS UA Urobilinogen 0.2 0.1 - 1.0 09/28/2012 Normal [facility] URINALYSIS UA Blood Negat jose maria (09/28/2012 00:45:00) Negati ve 09/28/2012 Normal [facility] URINALYSIS UA Nitrite Negat jose maria (09/28/2012 00:45:00) Negati ve 09/28/2012 Normal [facility] URINALYSIS UA Ketones Negat jose maria *NA* (09/28/2012 00:45:00) Negati ve 09/28/2012 NA [facility] URINALYSIS UA pH 6.0 5.0 - 8.0 09/28/2012 Normal [facility] URINALYSIS UA Bili Negat jose maria *NA* (09/28/2012 00:45:00) Negati ve 09/28/2012 NA [facility] URINALYSIS UA Mucus Moder ate /LPF *ABN* (09/28/2012 00:45:00) None S een 09/28/2012 ABN [facility] URINALYSIS UA Glucose Negat jose maria (09/28/2012 00:45:00) Negati ve 09/28/2012 Normal [facility] URINALYSIS UA Spec Grav 1.020 <=1.030 09/28/2012 Normal [facility] URINALYSIS UA Turbidity Sligh t Cloudy (09/28/2012 00:45:00) Clear 09/28/2012 Normal [facility] URINALYSIS UA Color Yello w *NA* (09/28/2012 00:45:00) Yellow 09/28/2012 NA [facility] CHEMISTRY Phosphorus 4.3 2.5 - 4.5 09/28/2012 Normal [facility] CHEMISTRY Magnesium Lvl 1.7 1.8 - 2.4 09/28/2012 LOW [facility] CHEMISTRY eGFR 95 09/28/2012 NA <sup>1</sup>Result Comment: The eGFR is calculated using the CKD-EPI formula. In most young, healthy individuals the eGFR will be >90 mL/min/1.73m2. The eGFR declines with age. An eGFR of 60-89 may be normal in some populations, particularly the elderly, for whom the CKD-EPI formula has not been extensively validated. Use of the eGFR is not recommended in the following populations:& lt;br/>
Individuals with unstable creatinine concentrations, including patients and those with serious co-morbid conditions.

Patients with extremes in muscle mass or diet.

The data above are obtained from the National Kidney Disease Education Program (NKDEP) which additionally recommends that when the eGFR is used in patients with extremes of body mass index for purposes of drug dosing, the eGFR should be multiplied by the estimated BMI. [facility] CHEMISTRY BUN 12 7 - 22 09/28/2012 Normal [facility] CHEMISTRY Glucose Lvl 94 70 - 99 09/28/2012 Normal <sup>2</sup>Interpretive Data: Adult ref erence range values reflect the clinical guidelines
of the [place] [employer]. [facility] CHEMISTRY CO2 31 24 - 32 09/28/2012 Normal [facility] CHEMISTRY Sodium Lvl 143 135 - 145 09/28/2012 Normal [facility] CHEMISTRY Creatinine Lvl 0.8 0.5 - 1.4 09/28/2012 Normal [facility] CHEMISTRY Chloride Lvl 105 95 - 109 09/28/2012 Normal [facility] CHEMISTRY Potassium Lvl 4.6 3.5 - 5.1 09/28/2012 Normal [facility] CHEMISTRY Calcium Lvl 9.7 8.5 - 10.5 09/28/2012 Normal [facility] CHEMISTRY AGAP 11.6 10.0 - 20.0 09/28/2012 Normal [facility] HEMATOLOGY Basophils # 0.1 0.0 - 0.2 09/28/2012 Normal [facility] HEMATOLOGY Monocytes # 0.3 0.0 - 0.8 09/28/2012 Normal [facility] HEMATOLOGY Eosinophils # 0.1 0.0 - 0.5 09/28/2012 Normal [facility] HEMATOLOGY Monocytes 6.6 2.0 - 12.0 09/28/2012 [facility] HEMATOLOGY Lymphocytes 44.0 20.0 - 40.0 09/28/2012 [facility] HEMATOLOGY Segs 46.4 45.0 - 75.0 09/28/2012 Normal [facility] HEMATOLOGY Lymphocytes # 2.1 1.0 - 5.5 09/28/2012 Normal [facility] HEMATOLOGY Eosinophils 1.3 0.0 - 4.0 09/28/2012 Normal [facility] HEMATOLOGY Basophils 1.7 0.0 - 1.0 09/28/2012 [facility] HEMATOLOGY Segs-Bands # 2.1 1.5 - 8.1 09/28/2012 Normal [facility] HEMATOLOGY MCV 95.6 81.0 - 99.0 09/28/2012 Normal [facility] HEMATOLOGY RBC 3.79 4.20 - 5.40 09/28/2012 LOW [facility] HEMATOLOGY Hgb 12.2 12.0 - 16.0 09/28/2012 Normal [facility] HEMATOLOGY Hct 36.2 36.0 - 48.0 09/28/2012 Normal [facility] HEMATOLOGY WBC 4.7 3.7 - 10.4 09/28/2012 Normal [facility] HEMATOLOGY MPV 9.5 7.4 - 10.4 09/28/2012 Normal [facility] HEMATOLOGY RDW 13.1 11.5 - 14.5 09/28/2012 Normal [facility] HEMATOLOGY Platelet 313 133 - 450 09/28/2012 Normal [facility] HEMATOLOGY MCH 32.1 27.0 - 31.0 09/28/2012 [facility] HEMATOLOGY MCHC 33.6 32.0 - 36.0 09/28/2012 Normal [facility] CHEMISTRY Albumin Lvl 3.7 3.5 - 5.0 08/10/2012 Normal [facility] CHEMISTRY Total Protein 6.3 6.4 - 8.4 08/10/2012 LOW [facility] CHEMISTRY ALT 35 0 - 65 08/10/2012 Normal [facility] CHEMISTRY Bili Total 0.3 0.2 - 1.3 08/10/2012 Normal [facility] CHEMISTRY AST 15 0 - 37 08/10/2012 Normal [facility] CHEMISTRY Alk Phos 81 39 - 136 08/10/2012 Normal [facility] CHEMISTRY Bili Direct <0.1 0.0 - 0.3 08/10/2012 Normal [facility] CHEMISTRY Globulin 2.6 2.0 - 4.0 08/10/2012 Normal [facility] CHEMISTRY A/G Ratio 1.4 0.7 - 1.6 08/10/2012 Normal [facility] CHEMISTRY Bili Indirect >0.2 0.0 - 1.0 08/10/2012 Normal [facility] HEMATOLOGY Basophils 0.4 0.0 - 1.0 08/10/2012 Normal [facility] HEMATOLOGY Eosinophils # 0.0 0.0 - 0.5 08/10/2012 Normal [facility] HEMATOLOGY Monocytes # 0.4 0.0 - 0.8 08/10/2012 Normal [facility] HEMATOLOGY Basophils # 0.0 0.0 - 0.2 08/10/2012 Normal [facility] HEMATOLOGY Lymphocytes 20.8 20.0 - 40.0 08/10/2012 Normal [facility] HEMATOLOGY Segs 70.5 45.0 - 75.0 08/10/2012 Normal [facility] HEMATOLOGY Segs-Bands # 3.2 1.5 - 8.1 08/10/2012 Normal [facility] HEMATOLOGY Eosinophils 0.1 0.0 - 4.0 08/10/2012 Normal [facility] HEMATOLOGY Lymphocytes # 1.0 1.0 - 5.5 08/10/2012 Normal [facility] HEMATOLOGY Monocytes 8.2 2.0 - 12.0 08/10/2012 Normal [facility] HEMATOLOGY MPV 9.6 7.4 - 10.4 08/10/2012 Normal [facility] HEMATOLOGY Hgb 10.3 12.0 - 16.0 08/10/2012 LOW [facility] HEMATOLOGY RBC 3.27 4.20 - 5.40 08/10/2012 [facility] HEMATOLOGY MCHC 32.6 32.0 - 36.0 08/10/2012 Normal [facility] HEMATOLOGY RDW 12.7 11.5 - 14.5 08/10/2012 Normal [facility] HEMATOLOGY Platelet 216 133 - 450 08/10/2012 Normal [facility] HEMATOLOGY Hct 31.7 36.0 - 48.0 08/10/2012 LOW [facility] HEMATOLOGY MCV 96.9 81.0 - 99.0 08/10/2012 Normal [facility] HEMATOLOGY MCH 31.6 27.0 - 31.0 08/10/2012 [facility] HEMATOLOGY WBC 4.6 3.7 - 10.4 08/10/2012 Normal [facility] CHEMISTRY eGFR 112 08/09/2012 NA <sup>1</sup>Result Comment: The eGFR is calculated using the CKD-EPI formula. In most young, healthy individuals the eGFR will be >90 mL/min/1.73m2. The eGFR declines with age. An eGFR of 60-89 may be normal in some populations, particularly the elderly, for whom the CKD-EPI formula has not been extensively validated. Use of the eGFR is not recommended in the following populations:& lt;br/>
Individuals with unstable creatinine concentrations, including patients and those with serious co-morbid conditions.

Patients with extremes in muscle mass or diet.

The data above are obtained from the National Kidney Disease Education Program (NKDEP) which additionally recommends that when the eGFR is used in patients with extremes of body mass index for purposes of drug dosing, the eGFR should be multiplied by the estimated BMI. [facility] CHEMISTRY Albumin Lvl 3.2 3.5 - 5.0 08/09/2012 LOW [facility] CHEMISTRY Total Protein 5.5 6.4 - 8.4 08/09/2012 LOW [facility] CHEMISTRY Calcium Lvl 8.4 8.5 - 10.5 08/09/2012 LOW [facility] CHEMISTRY Bili Total 0.4 0.2 - 1.3 08/09/2012 Normal [facility] CHEMISTRY Alk Phos 70 39 - 136 08/09/2012 Normal [facility] CHEMISTRY ALT 22 0 - 65 08/09/2012 Normal [facility] CHEMISTRY AST 6 0 - 37 08/09/2012 Normal [facility] CHEMISTRY Creatinine Lvl 0.7 0.5 - 1.4 08/09/2012 Normal [facility] CHEMISTRY CO2 32 24 - 32 08/09/2012 Normal [facility] CHEMISTRY Glucose Lvl 83 70 - 99 08/09/2012 Normal <sup>3</sup>Interpretive Data: Adult ref erence range values reflect the clinical guidelines
of the [place] [employer]. [facility] CHEMISTRY BUN 2 7 - 22 08/09/2012 LOW [facility] CHEMISTRY Chloride Lvl 106 95 - 109 08/09/2012 Normal [facility] CHEMISTRY Potassium Lvl 3.8 3.5 - 5.1 08/09/2012 Normal [facility] CHEMISTRY Sodium Lvl 145 135 - 145 08/09/2012 Normal [facility] CHEMISTRY B/C Ratio 3 6 - 25 08/09/2012 LOW [facility] CHEMISTRY AGAP 10.8 10.0 - 20.0 08/09/2012 Normal [facility] CHEMISTRY A/G Ratio 1.4 0.7 - 1.6 08/09/2012 Normal [facility] CHEMISTRY Globulin 2.3 2.0 - 4.0 08/09/2012 Normal [facility] CHEMISTRY Lipase Lvl 96 73 - 393 08/09/2012 Normal [facility] CHEMISTRY Amylase Lvl 26 25 - 115 08/09/2012 Normal [facility] HEMATOLOGY MPV 9.1 7.4 - 10.4 08/09/2012 Normal [facility] HEMATOLOGY Platelet 207 133 - 450 08/09/2012 Normal [facility] HEMATOLOGY WBC 3.3 3.7 - 10.4 08/09/2012 LOW [facility] HEMATOLOGY RBC 3.06 4.20 - 5.40 08/09/2012 LOW [facility] HEMATOLOGY Hgb 9.6 12.0 - 16.0 08/09/2012 LOW [facility] HEMATOLOGY RDW 12.7 11.5 - 14.5 08/09/2012 Normal [facility] HEMATOLOGY MCHC 32.4 32.0 - 36.0 08/09/2012 Normal [facility] HEMATOLOGY Hct 29.6 36.0 - 48.0 08/09/2012 LOW [facility] HEMATOLOGY MCV 96.7 81.0 - 99.0 08/09/2012 Normal [facility] HEMATOLOGY MCH 31.3 27.0 - 31.0 08/09/2012 [facility] HEMATOLOGY Basophils # 0.0 0.0 - 0.2 08/09/2012 Normal [facility] HEMATOLOGY Eosinophils # 0.2 0.0 - 0.5 08/09/2012 Normal [facility] HEMATOLOGY Monocytes # 0.4 0.0 - 0.8 08/09/2012 Normal [facility] HEMATOLOGY Lymphocytes # 1.5 1.0 - 5.5 08/09/2012 Normal [facility] HEMATOLOGY Segs-Bands # 1.3 1.5 - 8.1 08/09/2012 L[facility] HEMATOLOGY Basophils 0.7 0.0 - 1.0 08/09/2012 Normal [facility] HEMATOLOGY Lymphocytes 44.5 20.0 - 40.0 08/09/2012 [facility] HEMATOLOGY Monocytes 10.8 2.0 - 12.0 08/09/2012 Normal [facility] HEMATOLOGY Eosinophils 5.3 0.0 - 4.0 08/09/2012 [facility] HEMATOLOGY Segs 38.7 45.0 - 75.0 08/09/2012 [facility] CHEMISTRY U Preg Negati ve (08/08/2012 08:00:36) Negati ve 08/08/2012 Normal [facility] CHEMISTRY Bili Total 0.2 0.2 - 1.3 08/06/2012 Normal [facility] CHEMISTRY AST 14 0 - 37 08/06/2012 Normal [facility] CHEMISTRY Total Protein 7.3 6.4 - 8.4 08/06/2012 Normal [facility] CHEMISTRY CO2 28 24 - 32 08/06/2012 Normal [facility] CHEMISTRY ALT 43 0 - 65 08/06/2012 Normal [facility] CHEMISTRY Alk Phos 95 39 - 136 08/06/2012 Normal [facility] CHEMISTRY eGFR 95 08/06/2012 NA <sup>2</sup>Result Comment: The eGFR is calculated using the CKD-EPI formula. In most young, healthy individuals the eGFR will be >90 mL/min/1.73m2. The eGFR declines with age. An eGFR of 60-89 may be normal in some populations, particularly the elderly, for whom the CKD-EPI formula has not been extensively validated. Use of the eGFR is not recommended in the following populations:& lt;br/>
Individuals with unstable creatinine concentrations, including patients and those with serious co-morbid conditions.

Patients with extremes in muscle mass or diet.

The data above are obtained from the National Kid[employer] Disease Education Program (NKDEP) which additionally recommends that when the eGFR is used in patients with extremes of body mass index for purposes of drug dosing, the eGFR should be multiplied by the estimated BMI. [facility] CHEMISTRY Sodium Lvl 146 135 - 145 08/06/2012 [facility] CHEMISTRY Creatinine Lvl 0.8 0.5 - 1.4 08/06/2012 Normal [facility] CHEMISTRY BUN 10 7 - 22 08/06/2012 Normal [facility] CHEMISTRY Glucose Lvl 87 70 - 99 08/06/2012 Normal <sup>4</sup>Interpretive Data: Adult ref erence range values reflect the clinical guidelines
of the [place] [employer]. [facility] CHEMISTRY Potassium Lvl 3.5 3.5 - 5.1 08/06/2012 Normal [facility] CHEMISTRY Albumin Lvl 4.2 3.5 - 5.0 08/06/2012 Normal [facility] CHEMISTRY Chloride Lvl 109 95 - 109 08/06/2012 Normal [facility] CHEMISTRY Calcium Lvl 8.9 8.5 - 10.5 08/06/2012 Normal [facility] CHEMISTRY Globulin 3.1 2.0 - 4.0 08/06/2012 Normal [facility] CHEMISTRY A/G Ratio 1.4 0.7 - 1.6 08/06/2012 Normal [facility] CHEMISTRY AGAP 12.5 10.0 - 20.0 08/06/2012 Normal [facility] CHEMISTRY B/C Ratio 12 6 - 25 08/06/2012 Normal [facility] HEMATOLOGY Basophils # 0.0 0.0 - 0.2 08/06/2012 Normal [facility] HEMATOLOGY Lymphocytes # 1.7 1.0 - 5.5 08/06/2012 Normal [facility] HEMATOLOGY Monocytes # 0.3 0.0 - 0.8 08/06/2012 Normal [facility] HEMATOLOGY Eosinophils # 0.1 0.0 - 0.5 08/06/2012 Normal [facility] HEMATOLOGY Eosinophils 2.4 0.0 - 4.0 08/06/2012 Normal [facility] HEMATOLOGY Basophils 0.5 0.0 - 1.0 08/06/2012 Normal [facility] HEMATOLOGY Segs-Bands # 2.0 1.5 - 8.1 08/06/2012 Normal [facility] HEMATOLOGY Lymphocytes 41.8 20.0 - 40.0 08/06/2012 [facility] HEMATOLOGY Segs 48.4 45.0 - 75.0 08/06/2012 Normal [facility] HEMATOLOGY Monocytes 6.9 2.0 - 12.0 08/06/2012 Normal [facility] HEMATOLOGY WBC 4.0 3.7 - 10.4 08/06/2012 Normal [facility] HEMATOLOGY MPV 9.0 7.4 - 10.4 08/06/2012 Normal [facility] HEMATOLOGY Platelet 284 133 - 450 08/06/2012 Normal [facility] HEMATOLOGY RDW 13.2 11.5 - 14.5 08/06/2012 Normal [facility] HEMATOLOGY Hct 35.0 36.0 - 48.0 08/06/2012 LOW [facility] HEMATOLOGY Hgb 11.4 12.0 - 16.0 08/06/2012 LOW [facility] HEMATOLOGY RBC 3.65 4.20 - 5.40 08/06/2012 LOW [facility] HEMATOLOGY MCV 95.8 81.0 - 99.0 08/06/2012 Normal [facility] HEMATOLOGY MCHC 32.6 32.0 - 36.0 08/06/2012 Normal [facility] HEMATOLOGY MCH 31.2 27.0 - 31.0 08/06/2012 [facility] CHEMISTRY Total Protein 7.4 6.4 - 8.4 07/17/2012 Normal [facility] CHEMISTRY Globulin 3.1 2.0 - 4.0 07/17/2012 Normal [facility] CHEMISTRY A/G Ratio 1.4 0.7 - 1.6 07/17/2012 Normal [facility] CHEMISTRY Bili Total 0.2 0.2 - 1.3 07/17/2012 Normal [facility] CHEMISTRY Alk Phos 111 39 - 136 07/17/2012 Normal [facility] CHEMISTRY AST 45 0 - 37 07/17/2012 [facility] CHEMISTRY ALT 133 0 - 65 07/17/2012 [facility] CHEMISTRY eGFR 83 07/17/2012 NA <sup>1</sup>Result Comment: The eGFR is calculated using the CKD-EPI formula. In most young, healthy individuals the eGFR will be >90 mL/min/1.73m2. The eGFR declines with age. An eGFR of 60-89 may be normal in some populations, particularly the elderly, for whom the CKD-EPI formula has not been extensively validated. Use of the eGFR is not recommended in the following populations:& lt;br/>
Individuals with unstable creatinine concentrations, including patients and those with serious co-morbid conditions.

Patients with extremes in muscle mass or diet.

The data above are obtained from the National Kidney Disease Education Program (NKDEP) which additionally recommends that when the eGFR is used in patients with extremes of body mass index for purposes of drug dosing, the eGFR should be multiplied by the estimated BMI. [facility] CHEMISTRY Potassium Lvl 3.9 3.5 - 5.1 07/17/2012 Normal [facility] CHEMISTRY B/C Ratio 9 6 - 25 07/17/2012 Normal [facility] CHEMISTRY Albumin Lvl 4.3 3.5 - 5.0 07/17/2012 Normal [facility] CHEMISTRY AGAP 15.9 10.0 - 20.0 07/17/2012 Normal [facility] CHEMISTRY Calcium Lvl 9.2 8.5 - 10.5 07/17/2012 Normal [facility] CHEMISTRY Chloride Lvl 105 95 - 109 07/17/2012 Normal [facility] CHEMISTRY CO2 25 24 - 32 07/17/2012 Normal [facility] CHEMISTRY Sodium Lvl 142 135 - 145 07/17/2012 Normal [facility] CHEMISTRY Creatinine Lvl 0.9 0.5 - 1.4 07/17/2012 Normal [facility] CHEMISTRY BUN 8 7 - 22 07/17/2012 Normal [facility] CHEMISTRY Glucose Lvl 85 70 - 99 07/17/2012 Normal <sup>2</sup>Interpretive Data: Adult ref erence range values reflect the clinical guidelines
of the [place] [employer]. [facility] CHEMISTRY U Cocaine Scr Negati ve *NA* (07/17/2012 15:00:00) Negati ve 07/17/2012 NA [facility] CHEMISTRY U Cannab Scr Negati ve *NA* (07/17/2012 15:00:00) Negati ve 07/17/2012 NA [facility] CHEMISTRY U Opiate Scr Negati ve *NA* (07/17/2012 15:00:00) Negati ve 07/17/2012 NA [facility] CHEMISTRY UDS Note See No te 3 (07/17/2012 15:00:00) 07/17/2012 Normal <sup>3</sup>Interpretive Data: Drugs reported as positive have not been confirmed by a second
method and should be used for medical purposes only. To order
confirmation, contact laboratory.

note: Below are cut- off concentrations for all urine drugs of
abuse performed in the laboratory. Some drugs listed in the table
may not be included in this panel.

Description Cut-off concentration

Ampheta mine 1000 ng/mL
Barbiturates 200 ng/mL
Benzodiazepines 300 ng/mL
Cocaine metabolites 300 ng/mL
Opiates 300 ng/mL
Phencyclidine 25 ng/mL
Propoxyphene 300 ng/mL
Marijuana metabolites 50 ng/mL
Methadone 300 ng/m L
Urine alcohol 20 mg/dL [facility] CHEMISTRY U Phencyc Scr Negati ve *NA* (07/17/2012 15:00:00) Negati ve 07/17/2012 NA [facility] CHEMISTRY U Amph Scr Negati ve *NA* (07/17/2012 15:00:00) Negati ve 07/17/2012 NA [facility] CHEMISTRY U Pilar Scr Negati ve *NA* (07/17/2012 15:00:00) Negati ve 07/17/2012 NA [facility] CHEMISTRY U Benzodia Scr Positi ve *ABN* (07/17/2012 15:00:00) Negati ve 07/17/2012 ABN [facility] HEMATOLOGY MPV 9.1 7.4 - 10.4 07/17/2012 Normal [facility] HEMATOLOGY Platelet 328 133 - 450 07/17/2012 Normal [facility] HEMATOLOGY RDW 12.8 11.5 - 14.5 07/17/2012 Normal [facility] HEMATOLOGY MCHC 32.9 32.0 - 36.0 07/17/2012 Normal [facility] HEMATOLOGY MCH 31.3 27.0 - 31.0 07/17/2012 HI [facility] HEMATOLOGY WBC 4.0 3.7 - 10.4 07/17/2012 Normal [facility] HEMATOLOGY Hgb 11.7 12.0 - 16.0 07/17/2012 LOW [facility] HEMATOLOGY RBC 3.73 4.20 - 5.40 07/17/2012 LOW [facility] HEMATOLOGY MCV 95.0 81.0 - 99.0 07/17/2012 Normal [facility] HEMATOLOGY Hct 35.5 36.0 - 48.0 07/17/2012 LOW [facility] HEMATOLOGY Segs 54.9 45.0 - 75.0 07/17/2012 Normal [facility] HEMATOLOGY Eosinophils 2.8 0.0 - 4.0 07/17/2012 Normal [facility] HEMATOLOGY Monocytes 7.0 2.0 - 12.0 07/17/2012 Normal [facility] HEMATOLOGY Lymphocytes 34.7 20.0 - 40.0 07/17/2012 Normal [facility] HEMATOLOGY Lymphocytes # 1.4 1.0 - 5.5 07/17/2012 Normal [facility] HEMATOLOGY Eosinophils # 0.1 0.0 - 0.5 07/17/2012 Normal [facility] HEMATOLOGY Monocytes # 0.3 0.0 - 0.8 07/17/2012 Normal [facility] HEMATOLOGY Segs-Bands # 2.2 1.5 - 8.1 07/17/2012 Normal [facility] HEMATOLOGY Basophils 0.6 0.0 - 1.0 07/17/2012 Normal [facility] HEMATOLOGY Basophils # 0.0 0.0 - 0.2 07/17/2012 Normal [facility] CHEMISTRY U Preg Negati ve (07/16/2012 01:22:00) Negati ve 07/16/2012 Normal [facility] Microbiology Culture: Urine 07/16/2012 [facility] URINALYSIS UA Urobilinogen 0.1 - 1.0 07/16/2012 NA [facility] URINALYSIS UA Color Isela 07/16/2012 NA [facility] URINALYSIS UA Sq Epi None Seen 07/16/2012 NA [facility] URINALYSIS UA Protein Negat jose maria mg/dL (07/16/2012 00:05:00) Negati ve 07/16/2012 Normal [facility] URINALYSIS UA Ketones Negat jose maria mg/dL *NA* (07/16/2012 00:05:00) Negati ve 07/16/2012 NA [facility] URINALYSIS UA Glucose Negat jose maria mg/dL *NA* (07/16/2012 00:05:00) Negati ve 07/16/2012 NA [facility] URINALYSIS UA Spec Grav 1.003 <=1.030 07/16/2012 Normal [facility] URINALYSIS UA pH 7.0 5.0 - 8.0 07/16/2012 Normal [facility] URINALYSIS UA Turbidity Clear (07/16/2012 00:05:00) Clear 07/16/2012 Normal [facility] URINALYSIS UA Leuk Est Negat jose maria (07/16/2012 00:05:00) Negati ve 07/16/2012 Normal [facility] URINALYSIS UA Nitrite Posit jose maria *ABN* (07/16/2012 00:05:00) Negati ve 07/16/2012 ABN [facility] URINALYSIS UA Bili Negat jose maria *NA* (07/16/2012 00:05:00) Negati ve 07/16/2012 NA [facility] URINALYSIS UA RBC <1 0 - 2 07/16/2012 Normal [facility] URINALYSIS UA WBC <1 0 - 5 07/16/2012 Normal [facility] URINALYSIS UA Blood Negat jose maria (07/16/2012 00:05:00) Negati ve 07/16/2012 Normal [facility] CHEMISTRY Lipase Lvl 119 73 - 393 07/16/2012 Normal [facility] CHEMISTRY eGFR 95 07/16/2012 NA <sup>1</sup>Result Comment: The eGFR is calculated using the CKD-EPI formula. In most young, healthy individuals the eGFR will be >90 mL/min/1.73m2. The eGFR declines with age. An eGFR of 60-89 may be normal in some populations, particularly the elderly, for whom the CKD-EPI formula has not been extensively validated. Use of the eGFR is not recommended in the following populations:& lt;br/>
Individuals with unstable creatinine concentrations, including patients and those with serious co-morbid conditions.

Patients with extremes in muscle mass or diet.

The data above are obtained from the National Kidney Disease Education Program (NKDEP) which additionally recommends that when the eGFR is used in patients with extremes of body mass index for purposes of drug dosing, the eGFR should be multiplied by the estimated BMI. [facility] CHEMISTRY Albumin Lvl 4.0 3.5 - 5.0 07/16/2012 Normal [facility] CHEMISTRY CO2 30 24 - 32 07/16/2012 Normal [facility] CHEMISTRY Calcium Lvl 8.9 8.5 - 10.5 07/16/2012 Normal [facility] CHEMISTRY BUN 9 7 - 22 07/16/2012 Normal [facility] CHEMISTRY Chloride Lvl 104 95 - 109 07/16/2012 Normal [facility] CHEMISTRY Creatinine Lvl 0.8 0.5 - 1.4 07/16/2012 Normal [facility] CHEMISTRY Sodium Lvl 142 135 - 145 07/16/2012 Normal [facility] CHEMISTRY Potassium Lvl 4.0 3.5 - 5.1 07/16/2012 Normal [facility] CHEMISTRY Glucose Lvl 92 70 - 99 07/16/2012 Normal <sup>2</sup>Interpretive Data: Adult ref erence range values reflect the clinical guidelines
of the [place] [employer]. [facility] CHEMISTRY Total Protein 7.2 6.4 - 8.4 07/16/2012 Normal [facility] CHEMISTRY ALT 157 0 - 65 07/16/2012 HI [facility] CHEMISTRY Alk Phos 98 39 - 136 07/16/2012 Normal [facility] CHEMISTRY Bili Total 0.2 0.2 - 1.3 07/16/2012 Normal [facility] CHEMISTRY AST 65 0 - 37 07/16/2012 [facility] CHEMISTRY B/C Ratio 11 6 - 25 07/16/2012 Normal [facility] CHEMISTRY AGAP 12.0 10.0 - 20.0 07/16/2012 Normal [facility] CHEMISTRY Globulin 3.2 2.0 - 4.0 07/16/2012 Normal [facility] CHEMISTRY A/G Ratio 1.2 0.7 - 1.6 07/16/2012 Normal [facility] HEMATOLOGY Segs-Bands # 1.4 1.5 - 8.1 07/16/2012 LOW [facility] HEMATOLOGY Lymphocytes # 1.6 1.0 - 5.5 07/16/2012 Normal [facility] HEMATOLOGY Eosinophils 4.1 0.0 - 4.0 07/16/2012 [facility] HEMATOLOGY Basophils 0.6 0.0 - 1.0 07/16/2012 Normal [facility] HEMATOLOGY Monocytes 9.8 2.0 - 12.0 07/16/2012 Normal [facility] HEMATOLOGY Eosinophils # 0.1 0.0 - 0.5 07/16/2012 Normal [facility] HEMATOLOGY Monocytes # 0.4 0.0 - 0.8 07/16/2012 Normal [facility] HEMATOLOGY Basophils # 0.0 0.0 - 0.2 07/16/2012 Normal [facility] HEMATOLOGY Segs 39.4 45.0 - 75.0 07/16/2012 [facility] HEMATOLOGY Lymphocytes 46.1 20.0 - 40.0 07/16/2012 [facility] HEMATOLOGY Platelet 305 133 - 450 07/16/2012 Normal [facility] HEMATOLOGY RDW 12.9 11.5 - 14.5 07/16/2012 Normal [facility] HEMATOLOGY MPV 8.4 7.4 - 10.4 07/16/2012 Normal [facility] HEMATOLOGY MCV 96.2 81.0 - 99.0 07/16/2012 Normal [facility] HEMATOLOGY WBC 3.6 3.7 - 10.4 07/16/2012 [facility] HEMATOLOGY MCHC 32.6 32.0 - 36.0 07/16/2012 Normal [facility] HEMATOLOGY MCH 31.4 27.0 - 31.0 07/16/2012 [facility] HEMATOLOGY Hct 33.4 36.0 - 48.0 07/16/2012 LOW [facility] HEMATOLOGY RBC 3.48 4.20 - 5.40 07/16/2012 [facility] HEMATOLOGY Hgb 10.9 12.0 - 16.0 07/16/2012 [facility] BEDSIDE GLUCOSE TESTING Gluc POC Lif scn 68 70 - 99 07/11/2012 LOW <sup>1</sup>Interpretive Data: Upper Reportable Limit: 200 mg/dL. [facility] BEDSIDE GLUCOSE TESTING Comment1 Notify RN/ 07/11/2012 NA [facility] URINALYSIS UA Protein Negat jose maria mg/dL (07/09/2012 13:30:52) Negati ve 07/09/2012 Normal [facility] URINALYSIS UA Bili Negat jose maria *NA* (07/09/2012 13:30:52) Negati ve 07/09/2012 NA [facility] URINALYSIS UA Ketones Negat jose maria mg/dL *NA* (07/09/2012 13:30:52) Negati ve 07/09/2012 NA [facility] URINALYSIS UA Nitrite Negat jose maria (07/09/2012 13:30:52) Negati ve 07/09/2012 Normal [facility] URINALYSIS UA Blood Moder ate *ABN* (07/09/2012 13:30:52) Negati ve 07/09/2012 ABN [facility] URINALYSIS UA Glucose Negat jose maria mg/dL *NA* (07/09/2012 13:30:52) Negati ve 07/09/2012 NA [facility] URINALYSIS UA Color Isela 07/09/2012 NA [facility] URINALYSIS UA Leuk Est Trace *ABN* (07/09/2012 13:30:52) Negati ve 07/09/2012 ABN [facility] URINALYSIS UA Urobilinogen 0.1 - 1.0 07/09/2012 NA [facility] URINALYSIS UA Spec Grav 1.005 <=1.030 07/09/2012 Normal [facility] URINALYSIS UA Turbidity Clear (07/09/2012 13:30:52) Clear 07/09/2012 Normal [facility] URINALYSIS UA pH 6.0 5.0 - 8.0 07/09/2012 Normal [facility] BLOOD [facility] RESULTS Antibody Scrn Negative (07/09/2012 13:04:00) 07/09/2012 Normal [facility] BLOOD BANK RESULTS ABO/Rh O POS 07/09/2012 Unknown [facility] CHEMISTRY B/C Ratio 12 6 - 25 07/09/2012 Normal [facility] CHEMISTRY AGAP 12.5 10.0 - 20.0 07/09/2012 Normal [facility] CHEMISTRY A/G Ratio 1.3 0.7 - 1.6 07/09/2012 Normal [facility] CHEMISTRY Globulin 3.0 2.0 - 4.0 07/09/2012 Normal [facility] CHEMISTRY eGFR 73 07/09/2012 NA <sup>2</sup>Result Comment: The eGFR is calculated using the CKD-EPI formula. In most young, healthy individuals the eGFR will be >90 mL/min/1.73m2. The eGFR declines with age. An eGFR of 60-89 may be normal in some populations, particularly the elderly, for whom the CKD-EPI formula has not been extensively validated. Use of the eGFR is not recommended in the following populations:& lt;br/>
Individuals with unstable creatinine concentrations, including patients and those with serious co-morbid conditions.

Patients with extremes in muscle mass or diet.

The data above are obtained from the National Kid[employer] Disease Education Program (NKDEP) which additionally recommends that when the eGFR is used in patients with extremes of body mass index for purposes of drug dosing, the eGFR should be multiplied by the estimated BMI. [facility] CHEMISTRY Albumin Lvl 3.8 3.5 - 5.0 07/09/2012 Normal [facility] CHEMISTRY Calcium Lvl 9.5 8.5 - 10.5 07/09/2012 Normal [facility] CHEMISTRY Chloride Lvl 105 95 - 109 07/09/2012 Normal [facility] CHEMISTRY CO2 31 24 - 32 07/09/2012 Normal [facility] CHEMISTRY Sodium Lvl 143 135 - 145 07/09/2012 Normal [facility] CHEMISTRY Creatinine Lvl 1.0 0.5 - 1.4 07/09/2012 Normal [facility] CHEMISTRY Potassium Lvl 5.5 3.5 - 5.1 07/09/2012 HI [facility] CHEMISTRY BUN 12 7 - 22 07/09/2012 Normal [facility] CHEMISTRY Glucose Lvl 84 70 - 99 07/09/2012 Normal <sup>3</sup>Interpretive Data: Adult ref erence range values reflect the clinical guidelines
of the [place] [employer]. [facility] CHEMISTRY Total Protein 6.8 6.4 - 8.4 07/09/2012 Normal [facility] CHEMISTRY Alk Phos 92 39 - 136 07/09/2012 Normal [facility] CHEMISTRY Bili Total 0.2 0.2 - 1.3 07/09/2012 Normal [facility] CHEMISTRY ALT 44 0 - 65 07/09/2012 Normal [facility] CHEMISTRY AST 13 0 - 37 07/09/2012 Normal [facility] HEMATOLOGY Eosinophils # 0.2 0.0 - 0.5 07/09/2012 Normal [facility] HEMATOLOGY Basophils 0.3 0.0 - 1.0 07/09/2012 Normal [facility] HEMATOLOGY Eosinophils 4.7 0.0 - 4.0 07/09/2012 [facility] HEMATOLOGY Monocytes 10.2 2.0 - 12.0 07/09/2012 Normal [facility] HEMATOLOGY Lymphocytes 50.5 20.0 - 40.0 07/09/2012 [facility] HEMATOLOGY Basophils # 0.0 0.0 - 0.2 07/09/2012 Normal [facility] HEMATOLOGY Monocytes # 0.3 0.0 - 0.8 07/09/2012 Normal [facility] HEMATOLOGY Lymphocytes # 1.7 1.0 - 5.5 07/09/2012 Normal [facility] HEMATOLOGY Segs-Bands # 1.1 1.5 - 8.1 07/09/2012 LOW [facility] HEMATOLOGY Segs 34.3 45.0 - 75.0 07/09/2012 LOW [facility] HEMATOLOGY RBC 3.35 4.20 - 5.40 07/09/2012 LOW [facility] HEMATOLOGY RDW 12.9 11.5 - 14.5 07/09/2012 Normal [facility] HEMATOLOGY MCH 31.7 27.0 - 31.0 07/09/2012 [facility] HEMATOLOGY Platelet 264 133 - 450 07/09/2012 Normal [facility] HEMATOLOGY MCHC 32.5 32.0 - 36.0 07/09/2012 Normal [facility] HEMATOLOGY MCV 97.4 81.0 - 99.0 07/09/2012 Normal [facility] HEMATOLOGY Hct 32.7 36.0 - 48.0 07/09/2012 LOW [facility] HEMATOLOGY MPV 8.9 7.4 - 10.4 07/09/2012 Normal [facility] HEMATOLOGY WBC 3.3 3.7 - 10.4 07/09/2012 LOW [facility] HEMATOLOGY Hgb 10.6 12.0 - 16.0 07/09/2012 LOW [facility] Microbiology Culture: Urine 07/08/2012 [facility] URINALYSIS UA Color Isela 07/08/2012 NA [facility] URINALYSIS UA Sq Epi None Seen 07/08/2012 NA [facility] URINALYSIS UA Spec Grav 1.009 <=1.030 07/08/2012 Normal [facility] URINALYSIS UA Turbidity Clear (07/08/2012 01:50:00) Clear 07/08/2012 Normal [facility] URINALYSIS UA Nitrite Posit jose maria *ABN* (07/08/2012 01:50:00) Negati ve 07/08/2012 ABN [facility] URINALYSIS UA Blood Negat jose maria (07/08/2012 01:50:00) Negati ve 07/08/2012 Normal [facility] URINALYSIS UA Leuk Est Negat jose maria (07/08/2012 01:50:00) Negati ve 07/08/2012 Normal [facility] URINALYSIS UA Urobilinogen 4.0 0.1 - 1.0 07/08/2012 HI [facility] URINALYSIS UA Bili Negat jose maria *NA* (07/08/2012 01:50:00) Negati ve 07/08/2012 NA [facility] URINALYSIS UA Ketones Negat jose maria mg/dL *NA* (07/08/2012 01:50:00) Negati ve 07/08/2012 NA [facility] URINALYSIS UA Glucose Negat jose maria mg/dL *NA* (07/08/2012 01:50:00) Negati ve 07/08/2012 NA [facility] URINALYSIS UA Protein Negat jose maria mg/dL (07/08/2012 01:50:00) Negati ve 07/08/2012 Normal [facility] URINALYSIS UA pH 6.0 5.0 - 8.0 07/08/2012 Normal [facility] CHEMISTRY eGFR 83 07/07/2012 NA <sup>1</sup>Result Comment: The eGFR is calculated using the CKD-EPI formula. In most young, healthy individuals the eGFR will be >90 mL/min/1.73m2. The eGFR declines with age. An eGFR of 60-89 may be normal in some populations, particularly the elderly, for whom the CKD-EPI formula has not been extensively validated. Use of the eGFR is not recommended in the following populations:& lt;br/>
Individuals with unstable creatinine concentrations, including patients and those with serious co-morbid conditions.

Patients with extremes in muscle mass or diet.

The data above are obtained from the National Kid[employer] Disease Education Program (NKDEP) which additionally recommends that when the eGFR is used in patients with extremes of body mass index for purposes of drug dosing, the eGFR should be multiplied by the estimated BMI. [facility] CHEMISTRY Potassium Lvl 3.6 3.5 - 5.1 07/07/2012 Normal [facility] CHEMISTRY Sodium Lvl 141 135 - 145 07/07/2012 Normal [facility] CHEMISTRY Creatinine Lvl 0.9 0.5 - 1.4 07/07/2012 Normal [facility] CHEMISTRY BUN 14 7 - 22 07/07/2012 Normal [facility] CHEMISTRY Glucose Lvl 88 70 - 99 07/07/2012 Normal <sup>2</sup>Interpretive Data: Adult ref erence range values reflect the clinical guidelines
of the [place] [employer]. [facility] CHEMISTRY ALT 67 0 - 65 07/07/2012 [facility] CHEMISTRY Globulin 3.5 2.0 - 4.0 07/07/2012 Normal [facility] CHEMISTRY A/G Ratio 1.2 0.7 - 1.6 07/07/2012 Normal [facility] CHEMISTRY Calcium Lvl 8.6 8.5 - 10.5 07/07/2012 [facility] CHEMISTRY B/C Ratio 16 6 - 25 07/07/2012 Normal [facility] CHEMISTRY AGAP 12.6 10.0 - 20.0 07/07/2012 Normal [facility] CHEMISTRY Albumin Lvl 4.1 3.5 - 5.0 07/07/2012 Normal [facility] CHEMISTRY Total Protein 7.6 6.4 - 8.4 07/07/2012 Normal [facility] CHEMISTRY Alk Phos 100 39 - 136 07/07/2012 Normal [facility] CHEMISTRY AST 31 0 - 37 07/07/2012 Normal [facility] CHEMISTRY Bili Total 0.1 0.2 - 1.3 07/07/2012 LOW [facility] CHEMISTRY CO2 28 24 - 32 07/07/2012 Normal [facility] CHEMISTRY Chloride Lvl 104 95 - 109 07/07/2012 Normal [facility] HEMATOLOGY Platelet 238 133 - 450 07/07/2012 Normal [facility] HEMATOLOGY MPV 9.5 7.4 - 10.4 07/07/2012 Normal [facility] HEMATOLOGY Hgb 11.0 12.0 - 16.0 07/07/2012 LOW [facility] HEMATOLOGY MCV 95.8 81.0 - 99.0 07/07/2012 Normal [facility] HEMATOLOGY MCH 31.6 27.0 - 31.0 07/07/2012 HI [facility] HEMATOLOGY MCHC 33.0 32.0 - 36.0 07/07/2012 Normal [facility] HEMATOLOGY WBC 3.3 3.7 - 10.4 07/07/2012 LOW [facility] HEMATOLOGY RBC 3.47 4.20 - 5.40 07/07/2012 LOW [facility] HEMATOLOGY RDW 13.1 11.5 - 14.5 07/07/2012 Normal [facility] HEMATOLOGY Hct 33.2 36.0 - 48.0 07/07/2012 LOW [facility] HEMATOLOGY Segs 39.4 45.0 - 75.0 07/07/2012 LOW [facility] HEMATOLOGY Eosinophils # 0.1 0.0 - 0.5 07/07/2012 [facility] HEMATOLOGY Basophils # 0.0 0.0 - 0.2 07/07/2012 [facility] HEMATOLOGY Monocytes 12.7 2.0 - 12.0 07/07/2012 [facility] HEMATOLOGY Lymphocytes 44.6 20.0 - 40.0 07/07/2012 [facility] HEMATOLOGY Eosinophils 2.7 0.0 - 4.0 07/07/2012 Normal [facility] HEMATOLOGY Basophils 0.6 0.0 - 1.0 07/07/2012 Normal [facility] HEMATOLOGY Segs-Bands # 1.3 1.5 - 8.1 07/07/2012 LOW [facility] HEMATOLOGY Lymphocytes # 1.5 1.0 - 5.5 07/07/2012 Normal [facility] HEMATOLOGY Monocytes # 0.4 0.0 - 0.8 07/07/2012 Normal [facility] CHEMISTRY U Preg Negati ve (07/06/2012 23:36:00) Negati ve 07/07/2012 Normal [facility] URINALYSIS UA Sq Epi None Seen 07/07/2012 NA [facility] URINALYSIS UA RBC <1 0 - 2 07/07/2012 Normal [facility] URINALYSIS UA Urobilinogen 0.1 - 1.0 07/07/2012 NA [facility] URINALYSIS UA WBC <1 0 - 5 07/07/2012 Normal [facility] URINALYSIS UA Ketones Negat jose maria mg/dL *NA* (07/06/2012 23:36:00) Negati ve 07/07/2012 [facility] URINALYSIS UA Bili Negat jose maria *NA* (07/06/2012 23:36:00) Negati ve 07/07/2012 NA [facility] URINALYSIS UA Blood Negat jose maria (07/06/2012 23:36:00) Negati ve 07/07/2012 Normal [facility] URINALYSIS UA Nitrite Negat jose maria (07/06/2012 23:36:00) Negati ve 07/07/2012 Normal [facility] URINALYSIS UA Leuk Est Negat jose maria (07/06/2012 23:36:00) Negati ve 07/07/2012 Normal [facility] URINALYSIS UA pH 6.0 5.0 - 8.0 07/07/2012 Normal [facility] URINALYSIS UA Protein Negat jose maria mg/dL (07/06/2012 23:36:00) Negati ve 07/07/2012 Normal [facility] URINALYSIS UA Glucose Negat jose maria mg/dL *NA* (07/06/2012 23:36:00) Negati ve 07/07/2012 NA [facility] URINALYSIS UA Color Yello w *NA* (07/06/2012 23:36:00) Yellow 07/07/2012 NA [facility] URINALYSIS UA Turbidity Clear (07/06/2012 23:36:00) Clear 07/07/2012 Normal [facility] URINALYSIS UA Spec Grav 1.006 <=1.030 07/07/2012 Normal [facility] Microbiology Culture: Urine 07/07/2012 [facility] URINALYSIS UA Urobilinogen 0.1 - 1.0 05/31/2012 NA [facility] URINALYSIS UA Color Yello w *NA* (05/31/2012 08:30:00) Yellow 05/31/2012 [facility] URINALYSIS UA Turbidity Clear (05/31/2012 08:30:00) Clear 05/31/2012 Normal [facility] URINALYSIS UA Spec Grav 1.016 <=1.030 05/31/2012 Normal [facility] URINALYSIS UA Protein Negat jose maria mg/dL (05/31/2012 08:30:00) Negati ve 05/31/2012 Normal [facility] URINALYSIS UA Glucose Negat jose maria mg/dL *NA* (05/31/2012 08:30:00) Negati ve 05/31/2012 NA [facility] URINALYSIS UA pH 5.0 5.0 - 8.0 05/31/2012 Normal [facility] URINALYSIS UA WBC 2 0 - 5 05/31/2012 Normal [facility] URINALYSIS UA RBC <1 0 - 2 05/31/2012 Normal [facility] URINALYSIS UA Mucus Few / LPF *NA* (05/31/2012 08:30:00) None S een 05/31/2012 [facility] [place] URINALYSIS UA Bili Negat jose maria *NA* (05/31/2012 08:30:00) Negati ve 05/31/2012 NA [facility] URINALYSIS UA Ketones Negat jose maria mg/dL *NA* (05/31/2012 08:30:00) Negati ve 05/31/2012 NA [facility] URINALYSIS UA Blood Negat jose maria (05/31/2012 08:30:00) Negati ve 05/31/2012 Normal [facility] URINALYSIS UA Nitrite Negat jose maria (05/31/2012 08:30:00) Negati ve 05/31/2012 Normal [facility] URINALYSIS UA Leuk Est Small *ABN* (05/31/2012 08:30:00) Negati ve 05/31/2012 ABN [facility] URINALYSIS UA Sq Epi Occas ional /LPF *NA* (05/31/2012 08:30:00) Few 05/31/2012 NA [facility] CHEMISTRY CK MB <0.5 0.5 - 3.6 05/31/2012 Normal [facility] CHEMISTRY Troponin-I <0.02 0.00 - 0.40 05/31/2012 Normal [facility] CHEMISTRY AST 17 0 - 37 05/31/2012 Normal [facility] CHEMISTRY Globulin 2.9 2.0 - 4.0 05/31/2012 Normal [facility] CHEMISTRY Bili Total 0.2 0.2 - 1.3 05/31/2012 Normal [facility] CHEMISTRY A/G Ratio 1.5 0.7 - 1.6 05/31/2012 Normal [facility] CHEMISTRY Alk Phos 86 39 - 136 05/31/2012 Normal [facility] CHEMISTRY ALT 61 0 - 65 05/31/2012 Normal [facility] CHEMISTRY Total Protein 7.2 6.4 - 8.4 05/31/2012 Normal [facility] CHEMISTRY eGFR 83 05/31/2012 NA <sup>1</sup>Result Comment: The eGFR is calculated using the CKD-EPI formula. In most young, healthy individuals the eGFR will be >90 mL/min/1.73m2. The eGFR declines with age. An eGFR of 60-89 may be normal in some populations, particularly the elderly, for whom the CKD-EPI formula has not been extensively validated. Use of the eGFR is not recommended in the following populations:& lt;br/>
Individuals with unstable creatinine concentrations, including patients and those with serious co-morbid conditions.

Patients with extremes in muscle mass or diet.

The data above are obtained from the National Kidney Disease Education Program (NKDEP) which additionally recommends that when the eGFR is used in patients with extremes of body mass index for purposes of drug dosing, the eGFR should be multiplied by the estimated BMI. [facility] CHEMISTRY B/C Ratio 14 6 - 25 05/31/2012 Normal [facility] CHEMISTRY Albumin Lvl 4.3 3.5 - 5.0 05/31/2012 Normal [facility] CHEMISTRY AGAP 11.5 10.0 - 20.0 05/31/2012 Normal [facility] CHEMISTRY Calcium Lvl 9.0 8.5 - 10.5 05/31/2012 Normal [facility] CHEMISTRY CO2 28 24 - 32 05/31/2012 Normal [facility] CHEMISTRY Chloride Lvl 105 95 - 109 05/31/2012 Normal [facility] CHEMISTRY Sodium Lvl 141 135 - 145 05/31/2012 Normal [facility] CHEMISTRY Creatinine Lvl 0.9 0.5 - 1.4 05/31/2012 Normal [facility] CHEMISTRY Potassium Lvl 3.5 3.5 - 5.1 05/31/2012 Normal [facility] CHEMISTRY Glucose Lvl 130 70 - 99 05/31/2012 HI <sup>2</sup>Interpretive Data: Adult ref erence range values reflect the clinical guidelines
of the [place] [employer]. [facility] CHEMISTRY BUN 13 7 - 22 05/31/2012 Normal [facility] CHEMISTRY Total CK 74 12 - 191 05/31/2012 Normal [facility] CHEMISTRY CK MB Index <0.7 0.0 - 2.5 05/31/2012 Normal [facility] HEMATOLOGY INR 0.93 0.85 - 1.17 05/31/2012 Normal <sup>3</sup>Interpretive Data: RECOMMEND ED RANGES FOR PROTIME INR:
2.0-3.0 for most medical and surgical thromboembolic states.
2.5-3.5 for artificial heart valves and recurrent embolism.

INR SHOULD BE USED ONLY FOR PATIENTS ON STABLE ANTICOAGULANT THERAPY. [facility] HEMATOLOGY PT 12.7 12.0 - 14.7 05/31/2012 Normal [facility] HEMATOLOGY RDW 12.7 11.5 - 14.5 05/31/2012 Normal [facility] HEMATOLOGY MCH 31.9 27.0 - 31.0 05/31/2012 HI [facility] HEMATOLOGY MCHC 33.0 32.0 - 36.0 05/31/2012 Normal [facility] HEMATOLOGY RBC 3.83 4.20 - 5.40 05/31/2012 LOW [facility] HEMATOLOGY Hgb 12.2 12.0 - 16.0 05/31/2012 Normal [facility] HEMATOLOGY Hct 37.0 36.0 - 48.0 05/31/2012 Normal [facility] HEMATOLOGY MCV 96.6 81.0 - 99.0 05/31/2012 Normal [facility] HEMATOLOGY WBC 5.7 3.7 - 10.4 05/31/2012 Normal [facility] HEMATOLOGY Platelet 272 133 - 450 05/31/2012 Normal [facility] HEMATOLOGY MPV 9.6 7.4 - 10.4 05/31/2012 Normal [facility] HEMATOLOGY Basophils 0.5 0.0 - 1.0 05/31/2012 Normal [facility] HEMATOLOGY Segs-Bands # 3.3 1.5 - 8.1 05/31/2012 Normal [facility] HEMATOLOGY Segs 58.7 45.0 - 75.0 05/31/2012 Normal [facility] HEMATOLOGY Lymphocytes # 1.9 1.0 - 5.5 05/31/2012 Normal [facility] HEMATOLOGY Lymphocytes 33.6 20.0 - 40.0 05/31/2012 Normal [facility] HEMATOLOGY Monocytes # 0.3 0.0 - 0.8 05/31/2012 Normal [facility] HEMATOLOGY Monocytes 5.5 2.0 - 12.0 05/31/2012 Normal [facility] HEMATOLOGY Eosinophils 1.7 0.0 - 4.0 05/31/2012 Normal [facility] HEMATOLOGY Basophils # 0.0 0.0 - 0.2 05/31/2012 Normal [facility] HEMATOLOGY Eosinophils # 0.1 0.0 - 0.5 05/31/2012 Normal [facility] CHEMISTRY Bili Total 0.2 0.2 - 1.3 04/08/2012 Normal [facility] CHEMISTRY AST 17 0 - 37 04/08/2012 Normal [facility] CHEMISTRY Alk Phos 77 39 - 136 04/08/2012 Normal [facility] CHEMISTRY Total Protein 6.9 6.4 - 8.4 04/08/2012 Normal [facility] CHEMISTRY ALT 49 0 - 65 04/08/2012 Normal [facility] CHEMISTRY eGFR 95 04/08/2012 NA <sup>1</sup>Result Comment: The eGFR is calculated using the CKD-EPI formula. In most young, healthy individuals the eGFR will be >90 mL/min/1.73m2. The eGFR declines with age. An eGFR of 60-89 may be normal in some populations, particularly the elderly, for whom the CKD-EPI formula has not been extensively validated. Use of the eGFR is not recommended in the following populations:& lt;br/>
Individuals with unstable creatinine concentrations, including patients and those with serious co-morbid conditions.

Patients with extremes in muscle mass or diet.

The data above are obtained from the National Kidney Disease Education Program (NKDEP) which additionally recommends that when the eGFR is used in patients with extremes of body mass index for purposes of drug dosing, the eGFR should be multiplied by the estimated BMI. [facility] CHEMISTRY Calcium Lvl 8.6 8.5 - 10.5 04/08/2012 Normal [facility] CHEMISTRY Albumin Lvl 3.9 3.5 - 5.0 04/08/2012 Normal [facility] CHEMISTRY CO2 28 24 - 32 04/08/2012 Normal [facility] CHEMISTRY Chloride Lvl 106 95 - 109 04/08/2012 Normal [facility] CHEMISTRY Glucose Lvl 85 70 - 99 04/08/2012 Normal <sup>2</sup>Interpretive Data: Adult ref erence range values reflect the clinical guidelines
of the [place] [employer]. [facility] CHEMISTRY Creatinine Lvl 0.8 0.5 - 1.4 04/08/2012 Normal [facility] CHEMISTRY Potassium Lvl 4.2 3.5 - 5.1 04/08/2012 Normal [facility] CHEMISTRY Sodium Lvl 145 135 - 145 04/08/2012 Normal [facility] CHEMISTRY BUN 15 7 - 22 04/08/2012 Normal [facility] CHEMISTRY A/G Ratio 1.3 0.7 - 1.6 04/08/2012 Normal [facility] CHEMISTRY Globulin 3.0 2.0 - 4.0 04/08/2012 Normal [facility] CHEMISTRY AGAP 15.2 10.0 - 20.0 04/08/2012 Normal [facility] CHEMISTRY B/C Ratio 19 6 - 25 04/08/2012 Normal [facility] HEMATOLOGY Basophils # 0.0 0.0 - 0.2 04/08/2012 Normal [facility] HEMATOLOGY Eosinophils # 0.1 0.0 - 0.5 04/08/2012 Normal [facility] HEMATOLOGY Monocytes # 0.4 0.0 - 0.8 04/08/2012 Normal [facility] HEMATOLOGY Segs-Bands # 2.4 1.5 - 8.1 04/08/2012 Normal [facility] HEMATOLOGY Basophils 0.6 0.0 - 1.0 04/08/2012 Normal [facility] HEMATOLOGY Eosinophils 3.1 0.0 - 4.0 04/08/2012 Normal [facility] HEMATOLOGY Lymphocytes # 1.6 1.0 - 5.5 04/08/2012 Normal [facility] HEMATOLOGY Monocytes 8.6 2.0 - 12.0 04/08/2012 Normal [facility] HEMATOLOGY Segs 52.7 45.0 - 75.0 04/08/2012 Normal [facility] HEMATOLOGY Lymphocytes 35.0 20.0 - 40.0 04/08/2012 Normal [facility] HEMATOLOGY Platelet 257 133 - 450 04/08/2012 Normal [facility] HEMATOLOGY RDW 12.9 11.5 - 14.5 04/08/2012 Normal [facility] HEMATOLOGY MPV 9.2 7.4 - 10.4 04/08/2012 Normal [facility] HEMATOLOGY Hgb 11.9 12.0 - 16.0 04/08/2012 LOW [facility] HEMATOLOGY RBC 3.64 4.20 - 5.40 04/08/2012 LOW [facility] HEMATOLOGY Hct 35.3 36.0 - 48.0 04/08/2012 LOW [facility] HEMATOLOGY MCV 97.2 81.0 - 99.0 04/08/2012 Normal [facility] HEMATOLOGY MCH 32.6 27.0 - 31.0 04/08/2012 HI [facility] HEMATOLOGY MCHC 33.6 32.0 - 36.0 04/08/2012 Normal [facility] HEMATOLOGY WBC 4.5 3.7 - 10.4 04/08/2012 Normal [facility] Microbiology Culture: Urine 01/25/2012 [facility] CHEMISTRY UDS Note See No te 4 (01/24/2012 22:46:00) 01/25/2012 Normal <sup>4</sup>Interpretive Data: Drugs reported as positive have not been confirmed by a second
method and should be used for medical purposes only. To order
confirmation, contact laboratory.

note: Below are cut- off concentrations for all urine drugs of
abuse performed in the laboratory. Some drugs listed in the table
may not be included in this panel.

Description Cut-off concentration

Ampheta mine 1000 ng/mL
Barbiturates 200 ng/mL
Benzodiazepines 300 ng/mL
Cocaine metabolites 300 ng/mL
Opiates 300 ng/mL
Phencyclidine 25 ng/mL
Propoxyphene 300 ng/mL
Marijuana metabolites 50 ng/mL
Methadone 300 ng/m L
Urine alcohol 20 mg/dL [facility] CHEMISTRY U Phencyc Scr Negati ve *NA* (01/24/2012 22:46:00) Negati ve 01/25/2012 [facility] CHEMISTRY U Opiate Scr Negati ve *NA* (01/24/2012 22:46:00) Negati ve 01/25/2012 [facility] CHEMISTRY U Cannab Scr Negati ve *NA* (01/24/2012 22:46:00) Negati ve 01/25/2012 [facility] CHEMISTRY U Pilar Scr Negati ve *NA* (01/24/2012 22:46:00) Negati ve 01/25/2012 [facility] CHEMISTRY U Amph Scr Negati ve *NA* (01/24/2012 22:46:00) Negati ve 01/25/2012 [facility] CHEMISTRY U Cocaine Scr Negati ve *NA* (01/24/2012 22:46:00) Negati ve 01/25/2012 [facility] CHEMISTRY U Benzodia Scr Positi ve *ABN* (01/24/2012 22:46:00) Negati ve 01/25/2012 ABN [facility] URINALYSIS UA Urobilinogen 0.1 - 1.0 01/25/2012 [facility] URINALYSIS UA Color Colorless 01/25/2012 NA [facility] URINALYSIS UA Blood Negat jose maria (01/24/2012 22:46:00) Negati ve 01/25/2012 Normal [facility] URINALYSIS UA Bili Negat jose maria *NA* (01/24/2012 22:46:00) Negati ve 01/25/2012 [facility] URINALYSIS UA Ketones Negat jose maria mg/dL *NA* (01/24/2012 22:46:00) Negati ve 01/25/2012 NA [facility] URINALYSIS UA Sq Epi Occas ional /LPF *NA* (01/24/2012 22:46:00) Few 01/25/2012 NA [facility] URINALYSIS UA Leuk Est Trace *ABN* (01/24/2012 22:46:00) Negati ve 01/25/2012 ABN [facility] URINALYSIS UA Nitrite Negat jose maria (01/24/2012 22:46:00) Negati ve 01/25/2012 Normal [facility] URINALYSIS UA WBC 2 0 - 5 01/25/2012 Normal [facility] URINALYSIS UA Trans Epi 3 <=0 01/25/2012 [facility] URINALYSIS UA Glucose Negat jose maria mg/dL *NA* (01/24/2012 22:46:00) Negati ve 01/25/2012 NA [facility] URINALYSIS UA Protein Negat jose maria mg/dL (01/24/2012 22:46:00) Negati ve 01/25/2012 Normal [facility] URINALYSIS UA pH 6.0 5.0 - 8.0 01/25/2012 Normal [facility] URINALYSIS UA Turbidity Clear (01/24/2012 22:46:00) Clear 01/25/2012 Normal [facility] URINALYSIS UA Spec Grav 1.002 <=1.030 01/25/2012 Normal [facility] BEDSIDE GLUCOSE TESTING Gluc POC Lif scn 116 70 - 99 01/25/2012 OK <sup>1</sup>Interpretive Data: Upper Reportable Limit: 200 mg/dL. [facility] CHEMISTRY Globulin 3.1 2.0 - 4.0 01/25/2012 Normal [facility] CHEMISTRY A/G Ratio 1.4 0.7 - 1.6 01/25/2012 Normal [facility] CHEMISTRY B/C Ratio 14 6 - 25 01/25/2012 Normal [facility] CHEMISTRY AGAP 13.5 10.0 - 20.0 01/25/2012 Normal [facility] CHEMISTRY ALT 76 0 - 65 01/25/2012 [facility] CHEMISTRY Total Protein 7.3 6.4 - 8.4 01/25/2012 [facility] CHEMISTRY AST 45 0 - 37 01/25/2012 [facility] CHEMISTRY Alk Phos 95 39 - 136 01/25/2012 Normal [facility] CHEMISTRY Bili Total 0.2 0.2 - 1.3 01/25/2012 Normal [facility] CHEMISTRY Glucose Lvl 79 70 - 99 01/25/2012 Normal <sup>3</sup>Interpretive Data: Adult ref erence range values reflect the clinical guidelines
of the [place] [employer]. [facility] CHEMISTRY BUN 11 7 - 22 01/25/2012 Normal [facility] CHEMISTRY Creatinine Lvl 0.8 0.5 - 1.4 01/25/2012 Normal [facility] CHEMISTRY Chloride Lvl 108 95 - 109 01/25/2012 Normal [facility] CHEMISTRY CO2 26 24 - 32 01/25/2012 Normal [facility] CHEMISTRY Sodium Lvl 144 135 - 145 01/25/2012 Normal [facility] CHEMISTRY Potassium Lvl 3.5 3.5 - 5.1 01/25/2012 Normal [facility] CHEMISTRY Calcium Lvl 9.1 8.5 - 10.5 01/25/2012 Normal [facility] CHEMISTRY Albumin Lvl 4.2 3.5 - 5.0 01/25/2012 Normal [facility] HEMATOLOGY Basophils 0.4 0.0 - 1.0 01/25/2012 Normal [facility] HEMATOLOGY Eosinophils 4.1 0.0 - 4.0 01/25/2012 [facility] HEMATOLOGY Lymphocytes # 2.2 1.0 - 5.5 01/25/2012 Normal [facility] HEMATOLOGY Segs-Bands # 1.4 1.5 - 8.1 01/25/2012 LOW [facility] HEMATOLOGY Monocytes 8.5 2.0 - 12.0 01/25/2012 Normal [facility] HEMATOLOGY Basophils # 0.0 0.0 - 0.2 01/25/2012 Normal [facility] HEMATOLOGY Monocytes # 0.4 0.0 - 0.8 01/25/2012 Normal [facility] HEMATOLOGY Eosinophils # 0.2 0.0 - 0.5 01/25/2012 Normal [facility] HEMATOLOGY Segs 34.7 45.0 - 75.0 01/25/2012 LOW [facility] HEMATOLOGY Lymphocytes 52.3 20.0 - 40.0 01/25/2012 [facility] HEMATOLOGY RBC 3.72 4.20 - 5.40 01/25/2012 LOW [facility] HEMATOLOGY MCV 95.6 81.0 - 99.0 01/25/2012 Normal [facility] HEMATOLOGY Hct 35.6 36.0 - 48.0 01/25/2012 [facility] HEMATOLOGY Hgb 11.8 12.0 - 16.0 01/25/2012 LOW [facility] HEMATOLOGY MCH 31.7 27.0 - 31.0 01/25/2012 [facility] HEMATOLOGY MCHC 33.2 32.0 - 36.0 01/25/2012 Normal [facility] HEMATOLOGY RDW 14.1 11.5 - 14.5 01/25/2012 Normal [facility] HEMATOLOGY WBC 4.2 3.7 - 10.4 01/25/2012 Normal [facility] HEMATOLOGY Platelet 246 133 - 450 01/25/2012 Normal [facility] HEMATOLOGY MPV 9.9 7.4 - 10.4 01/25/2012 Normal [facility] BEDSIDE GLUCOSE TESTING Comment1 Notify RN/ 01/25/2012 NA [facility] BEDSIDE GLUCOSE TESTING Gluc POC Lif scn 91 70 - 99 01/25/2012 Normal <sup>2</sup>Interpretive Data: Upper Reportable Limit: 200 mg/dL. [facility] BEDSIDE GLUCOSE TESTING Gluc POC Lif scn 65 70 - 99 01/02/2012 LOW <sup>1</sup>Interpretive Data: Upper Reportable Limit: 200 mg/dL. [facility] BEDSIDE GLUCOSE TESTING Comment1 Notify CHIN/ 01/02/2012 NA [facility] CHEMISTRY AGAP 11.5 10.0 - 20.0 01/02/2012 Normal [facility] CHEMISTRY BUN 4 7 - 22 01/02/2012 LOW [facility] CHEMISTRY Creatinine Lvl 0.6 0.5 - 1.4 01/02/2012 Normal [facility] CHEMISTRY Calcium Lvl 8.3 8.5 - 10.5 01/02/2012 LOW [facility] CHEMISTRY CO2 26 24 - 32 01/02/2012 Normal [facility] CHEMISTRY Glucose Lvl 70 70 - 99 01/02/2012 Normal <sup>2</sup>Interpretive Data: Adult ref erence range values reflect the clinical guidelines
of the [place] [employer]. [facility] CHEMISTRY Sodium Lvl 144 135 - 145 01/02/2012 Normal [facility] CHEMISTRY Potassium Lvl 3.5 3.5 - 5.1 01/02/2012 Normal [facility] CHEMISTRY Chloride Lvl 110 95 - 109 01/02/2012 [facility] HEMATOLOGY Basophils # 0.0 0.0 - 0.2 01/02/2012 Normal [facility] HEMATOLOGY Monocytes # 0.2 0.0 - 0.8 01/02/2012 Normal [facility] HEMATOLOGY Eosinophils # 0.1 0.0 - 0.5 01/02/2012 Normal [facility] HEMATOLOGY Lymphocytes # 1.6 1.0 - 5.5 01/02/2012 Normal [facility] HEMATOLOGY Basophils 0.8 0.0 - 1.0 01/02/2012 Normal [facility] HEMATOLOGY Segs-Bands # 0.6 1.5 - 8.1 01/02/2012 LOW [facility] HEMATOLOGY Eosinophils 4.9 0.0 - 4.0 01/02/2012 [facility] HEMATOLOGY Lymphocytes 63.1 20.0 - 40.0 01/02/2012 [facility] HEMATOLOGY Monocytes 7.1 2.0 - 12.0 01/02/2012 Normal [facility] HEMATOLOGY Plt Morph Ashlee l (01/02/2012 05:05:00) 01/02/2012 Normal [facility] HEMATOLOGY Segs 24.1 45.0 - 75.0 01/02/2012 LOW [facility] RBC Morph Ashlee l (01/02/2012 05:05:00) 01/02/2012 Normal [facility] HEMATOLOGY INR 1.08 0.85 - 1.17 01/02/2012 Normal <sup>3</sup>Interpretive Data: RECOMMEND ED RANGES FOR PROTIME INR:
2.0-3.0 for most medical and surgical thromboembolic states.
2.5-3.5 for artificial heart valves and recurrent embolism.

INR SHOULD BE USED ONLY FOR PATIENTS ON STABLE ANTICOAGULANT THERAPY. [facility] HEMATOLOGY PT 14.2 12.0 - 14.7 01/02/2012 Normal [facility] PTT 32.6 22.9 - 35.8 01/02/2012 Normal <sup>4</sup>Interpretive Data: Heparin T herapeutic Range: 57 - 92 Seconds [facility] Hct 28.1 36.0 - 48.0 01/02/2012 LOW [facility] Hgb 9.5 12.0 - 16.0 01/02/2012 LOW [facility] HEMATOLOGY MCH 31.8 27.0 - 31.0 01/02/2012 [facility] HEMATOLOGY MCV 94.3 81.0 - 99.0 01/02/2012 Normal [facility] HEMATOLOGY MCHC 33.8 32.0 - 36.0 01/02/2012 Normal [facility] HEMATOLOGY Platelet 149 133 - 450 01/02/2012 Normal [facility] RDW 16.1 11.5 - 14.5 01/02/2012 [facility] HEMATOLOGY MPV 10.4 7.4 - 10.4 01/02/2012 Normal [facility] RBC 2.99 4.20 - 5.40 01/02/2012 [facility] HEMATOLOGY WBC 2.6 3.7 - 10.4 01/02/2012 [facility] HEMATOLOGY Hgb 10.7 12.0 - 16.0 01/02/2012 [facility] HEMATOLOGY Hgb 10.4 12.0 - 16.0 01/01/2012 [facility] BLOOD BANK RESULTS ABO/Rh O POS 01/01/2012 Unknown [facility] BLOOD BANK RESULTS Antibody Scrn Negative (01/01/2012 08:51:00) 01/01/2012 [facility] HEMATOLOGY MPV 10.1 7.4 - 10.4 12/31/2011 [facility] HEMATOLOGY Platelet 209 133 - 450 12/31/2011 [facility] HEMATOLOGY Hct 32.1 36.0 - 48.0 12/31/2011 [facility] HEMATOLOGY RDW 16.5 11.5 - 14.5 12/31/2011 [facility] HEMATOLOGY MCV 94.1 81.0 - 99.0 12/31/2011 [facility] HEMATOLOGY MCHC 33.8 32.0 - 36.0 12/31/2011 [facility] HEMATOLOGY MCH 31.8 27.0 - 31.0 12/31/2011 [facility] HEMATOLOGY WBC 3.3 3.7 - 10.4 12/31/2011 [facility] HEMATOLOGY RBC 3.42 4.20 - 5.40 12/31/2011 [facility] HEMATOLOGY Eosinophils # 0.2 0.0 - 0.5 12/31/2011 [facility] HEMATOLOGY Monocytes # 0.2 0.0 - 0.8 12/31/2011 [facility] HEMATOLOGY Basophils # 0.0 0.0 - 0.2 12/31/2011 [facility] HEMATOLOGY Segs-Bands # 1.2 1.5 - 8.1 12/31/2011 [facility] HEMATOLOGY Eosinophils 4.5 0.0 - 4.0 12/31/2011 [facility] HEMATOLOGY Basophils 0.8 0.0 - 1.0 12/31/2011 [facility] HEMATOLOGY Segs 36.3 45.0 - 75.0 12/31/2011 [facility] HEMATOLOGY Lymphocytes 52.7 20.0 - 40.0 12/31/2011 [facility] HEMATOLOGY Monocytes 5.7 2.0 - 12.0 12/31/2011 [facility] HEMATOLOGY Lymphocytes # 1.7 1.0 - 5.5 12/31/2011 [facility] STOOL TESTS Occult Bld Stl Posi tive *ABN* (12/31/2011 00:13:00) Negati ve 12/31/2011 ABN [facility] CHEMISTRY AST 10 0 - 37 12/31/2011 Normal [facility] CHEMISTRY Albumin Lvl 4.5 3.5 - 5.0 12/31/2011 Normal [facility] CHEMISTRY ALT 46 0 - 65 12/31/2011 Normal [facility] CHEMISTRY Bili Total 0.2 0.2 - 1.3 12/31/2011 Normal [facility] CHEMISTRY CO2 23 24 - 32 12/31/2011 LOW [facility] CHEMISTRY Potassium Lvl 3.8 3.5 - 5.1 12/31/2011 Normal [facility] CHEMISTRY Chloride Lvl 107 95 - 109 12/31/2011 Normal [facility] CHEMISTRY Total Protein 7.9 6.4 - 8.4 12/31/2011 Normal [facility] CHEMISTRY Alk Phos 94 39 - 136 12/31/2011 Normal [facility] CHEMISTRY Glucose Lvl 91 70 - 99 12/31/2011 Normal <sup>1</sup>Interpretive Data: Adult ref erence range values reflect the clinical guidelines
of the [place] [employer]. [facility] CHEMISTRY Calcium Lvl 9.3 8.5 - 10.5 12/31/2011 Normal [facility] CHEMISTRY BUN 14 7 - 22 12/31/2011 Normal [facility] CHEMISTRY Sodium Lvl 140 135 - 145 12/31/2011 Normal [facility] CHEMISTRY Creatinine Lvl 0.8 0.5 - 1.4 12/31/2011 Normal [facility] CHEMISTRY AGAP 13.8 10.0 - 20.0 12/31/2011 Normal [facility] CHEMISTRY B/C Ratio 18 6 - 25 12/31/2011 Normal [facility] CHEMISTRY A/G Ratio 1.3 0.7 - 1.6 12/31/2011 Normal [facility] CHEMISTRY Globulin 3.4 2.0 - 4.0 12/31/2011 Normal [facility] CHEMISTRY Lipase Lvl 157 73 - 393 12/31/2011 Normal [facility] HEMATOLOGY RDW 16.3 11.5 - 14.5 12/31/2011 HI [facility] HEMATOLOGY Platelet 263 133 - 450 12/31/2011 Normal [facility] HEMATOLOGY MPV 9.9 7.4 - 10.4 12/31/2011 Normal [facility] HEMATOLOGY Hct 38.6 36.0 - 48.0 12/31/2011 Normal [facility] HEMATOLOGY MCV 94.4 81.0 - 99.0 12/31/2011 [facility] HEMATOLOGY MCH 31.3 27.0 - 31.0 12/31/2011 [facility] HEMATOLOGY MCHC 33.2 32.0 - 36.0 12/31/2011 [facility] HEMATOLOGY WBC 6.5 3.7 - 10.4 12/31/2011 [facility] HEMATOLOGY Hgb 12.8 12.0 - 16.0 12/31/2011 Normal [facility] HEMATOLOGY RBC 4.09 4.20 - 5.40 12/31/2011 LOW [facility] HEMATOLOGY Basophils # 0.0 0.0 - 0.2 12/31/2011 Normal [facility] HEMATOLOGY Monocytes # 0.4 0.0 - 0.8 12/31/2011 Normal [facility] HEMATOLOGY Eosinophils # 0.1 0.0 - 0.5 12/31/2011 Normal [facility] HEMATOLOGY Segs 58.4 45.0 - 75.0 12/31/2011 Normal [facility] HEMATOLOGY Eosinophils 2.1 0.0 - 4.0 12/31/2011 Normal [facility] HEMATOLOGY Monocytes 6.1 2.0 - 12.0 12/31/2011 Normal [facility] HEMATOLOGY Lymphocytes 33.0 20.0 - 40.0 12/31/2011 Normal [facility] HEMATOLOGY Basophils 0.4 0.0 - 1.0 12/31/2011 Normal [facility] HEMATOLOGY Segs-Bands # 3.8 1.5 - 8.1 12/31/2011 Normal [facility] HEMATOLOGY Lymphocytes # 2.1 1.0 - 5.5 12/31/2011 Normal [facility] IMMUNOLOGY CDC-HIV 1/2 Ab Negat jose maria *NA* (12/30/2011 23:17:00) Negati ve 12/31/2011 NA [facility] URINALYSIS UA Color Ltyellow 12/31/2011 NA [facility] Urobilinogen 0.1 - 1.0 12/31/2011 NA [facility] WBC 1 0 - 5 12/31/2011 Normal [facility] RBC 4 0 - 2 12/31/2011 HI [facility] Blood Negat jose maria (12/30/2011 23:17:00) Negati ve 12/31/2011 Normal [facility] Nitrite Negat jose maria (12/30/2011 23:17:00) Negati ve 12/31/2011 Normal [facility] Leuk Est Negat jose maria (12/30/2011 23:17:00) Negati ve 12/31/2011 Normal [facility] Sq Epi Occas ional /LPF *NA* (12/30/2011 23:17:00) Few 12/31/2011 [facility] Hyal Cast 1 0 - 2 12/31/2011 Normal [facility] Ketones Negat jose maria mg/dL *NA* (12/30/2011 23:17:00) Negati ve 12/31/2011 NA [facility] pH 5.0 5.0 - 8.0 12/31/2011 Normal [facility] Protein Negat jose maria mg/dL (12/30/2011 23:17:00) Negati ve 12/31/2011 Normal [facility] Glucose Negat jose maria mg/dL *NA* (12/30/2011 23:17:00) Negati ve 12/31/2011 [facility] Bili Negat jose maria *NA* (12/30/2011 23:17:00) Negati ve 12/31/2011 NA [facility] Turbidity Clear (12/30/2011 23:17:00) Clear 12/31/2011 Normal [facility] Spec Grav 1.019 <=1.030 12/31/2011 Normal [facility] Urobilinogen 0.1 - 1.0 10/16/2011 [facility] Color Ltyellow 10/16/2011 [facility] Trans Epi 1 <=0 10/16/2011 [facility] WBC 6 0 - 5 10/16/2011 HI [facility] RBC 3 0 - 2 10/16/2011 [facility] Mucus Few / LPF *NA* (10/16/2011 01:36:00) None S een 10/16/2011 [facility] Leuk Est Moder ate *ABN* (10/16/2011 01:36:00) Negati ve 10/16/2011 ABN [facility] Sq Epi Occas ional /LPF *NA* (10/16/2011 01:36:00) Few 10/16/2011 NA [facility] URINALYSIS UA Ketones Negat jose maria mg/dL *NA* (10/16/2011 01:36:00) Negati ve 10/16/2011 NA [facility] URINALYSIS UA Bili Negat jose maria *NA* (10/16/2011 01:36:00) Negati ve 10/16/2011 NA [facility] URINALYSIS UA Blood Negat jose maria (10/16/2011 01:36:00) Negati ve 10/16/2011 Normal [facility] URINALYSIS UA Glucose Negat jose maria mg/dL *NA* (10/16/2011 01:36:00) Negati ve 10/16/2011 NA [facility] URINALYSIS UA Protein Negat jose maria mg/dL (10/16/2011 01:36:00) Negati ve 10/16/2011 Normal [facility] URINALYSIS UA Nitrite Negat jose maria (10/16/2011 01:36:00) Negati ve 10/16/2011 Normal [facility] URINALYSIS UA Turbidity Sligh t *ABN* (10/16/2011 01:36:00) Clear 10/16/2011 ABN [facility] URINALYSIS UA Spec Grav 1.019 <=1.030 10/16/2011 Normal [facility] URINALYSIS UA pH 6.0 5.0 - 8.0 10/16/2011 Normal [facility] CHEMISTRY AGAP 14.7 10.0 - 20.0 10/16/2011 Normal [facility] CHEMISTRY Creatinine Lvl 0.7 0.5 - 1.4 10/16/2011 Normal [facility] CHEMISTRY Sodium Lvl 143 135 - 145 10/16/2011 Normal [facility] CHEMISTRY BUN 14 7 - 22 10/16/2011 Normal [facility] CHEMISTRY Glucose Lvl 91 70 - 99 10/16/2011 Normal <sup>1</sup>Interpretive Data: Adult ref erence range values reflect the clinical guidelines of the [place] [employer]. [facility] CHEMISTRY CO2 23 24 - 32 10/16/2011 LOW [facility] CHEMISTRY Calcium Lvl 8.9 8.5 - 10.5 10/16/2011 Normal [facility] CHEMISTRY Potassium Lvl 3.7 3.5 - 5.1 10/16/2011 Normal [facility] CHEMISTRY Chloride Lvl 109 95 - 109 10/16/2011 Normal [facility] HEMATOLOGY Hct 40.3 36.0 - 48.0 10/16/2011 Normal [facility] HEMATOLOGY WBC 4.6 3.7 - 10.4 10/16/2011 Normal [facility] HEMATOLOGY RDW 16.2 11.5 - 14.5 10/16/2011 [facility] HEMATOLOGY MPV 10.2 7.4 - 10.4 10/16/2011 Normal [facility] HEMATOLOGY MCH 30.8 27.0 - 31.0 10/16/2011 Normal [facility] HEMATOLOGY MCHC 33.4 32.0 - 36.0 10/16/2011 Normal [facility] HEMATOLOGY Platelet 243 133 - 450 10/16/2011 Normal [facility] HEMATOLOGY RBC 4.37 4.20 - 5.40 10/16/2011 Normal [facility] HEMATOLOGY Hgb 13.4 12.0 - 16.0 10/16/2011 Normal [facility] HEMATOLOGY MCV 92.2 81.0 - 99.0 10/16/2011 Normal [facility] HEMATOLOGY Lymphocytes # 1.9 1.0 - 5.5 10/16/2011 Normal [facility] HEMATOLOGY Eosinophils # 0.1 0.0 - 0.5 10/16/2011 Normal [facility] HEMATOLOGY Segs-Bands # 2.2 1.5 - 8.1 10/16/2011 Normal [facility] HEMATOLOGY Monocytes # 0.4 0.0 - 0.8 10/16/2011 Normal [facility] HEMATOLOGY Segs 47.8 45.0 - 75.0 10/16/2011 Normal [facility] HEMATOLOGY Monocytes 9.0 2.0 - 12.0 10/16/2011 Normal [facility] HEMATOLOGY Lymphocytes 40.1 20.0 - 40.0 10/16/2011 [facility] HEMATOLOGY Eosinophils 2.8 0.0 - 4.0 10/16/2011 Normal [facility] HEMATOLOGY Basophils 0.3 0.0 - 1.0 10/16/2011 Normal [facility] HEMATOLOGY Basophils # 0.0 0.0 - 0.2 10/16/2011 Normal [facility] CHEMISTRY Glucose Lvl 70 70 - 99 10/10/2011 Normal <sup>3</sup>Interpretive Data: Adult ref erence range values reflect the clinical guidelines of the [place] [employer]. [facility] CHEMISTRY Creatinine Lvl 0.9 0.5 - 1.4 10/10/2011 Normal [facility] CHEMISTRY BUN 10 7 - 22 10/10/2011 Normal [facility] CHEMISTRY CO2 23 24 - 32 10/10/2011 LOW [facility] CHEMISTRY Calcium Lvl 8.8 8.5 - 10.5 10/10/2011 Normal [facility] CHEMISTRY Chloride Lvl 108 95 - 109 10/10/2011 Normal [facility] CHEMISTRY Potassium Lvl 4.0 3.5 - 5.1 10/10/2011 Normal [facility] CHEMISTRY Sodium Lvl 143 135 - 145 10/10/2011 Normal [facility] CHEMISTRY AGAP 16.0 10.0 - 20.0 10/10/2011 Normal [facility] HEMATOLOGY Segs-Bands # 1.3 1.5 - 8.1 10/10/2011 LOW [facility] HEMATOLOGY Basophils 0.7 0.0 - 1.0 10/10/2011 Normal [facility] HEMATOLOGY Monocytes # 0.2 0.0 - 0.8 10/10/2011 Normal [facility] HEMATOLOGY Lymphocytes # 2.1 1.0 - 5.5 10/10/2011 Normal [facility] HEMATOLOGY Basophils # 0.0 0.0 - 0.2 10/10/2011 Normal [facility] HEMATOLOGY Eosinophils # 0.1 0.0 - 0.5 10/10/2011 Normal [facility] HEMATOLOGY Eosinophils 3.3 0.0 - 4.0 10/10/2011 Normal [facility] HEMATOLOGY Monocytes 5.5 2.0 - 12.0 10/10/2011 Normal [facility] HEMATOLOGY Lymphocytes 55.8 20.0 - 40.0 10/10/2011 [facility] HEMATOLOGY Segs 34.7 45.0 - 75.0 10/10/2011 [facility] HEMATOLOGY Platelet 187 133 - 450 10/10/2011 Normal [facility] HEMATOLOGY RDW 15.7 11.5 - 14.5 10/10/2011 [facility] HEMATOLOGY MCHC 33.7 32.0 - 36.0 10/10/2011 Normal [facility] HEMATOLOGY MPV 10.1 7.4 - 10.4 10/10/2011 Normal [facility] HEMATOLOGY Hct 35.6 36.0 - 48.0 10/10/2011 LOW [facility] HEMATOLOGY WBC 3.8 3.7 - 10.4 10/10/2011 Normal [facility] HEMATOLOGY MCV 91.6 81.0 - 99.0 10/10/2011 Normal [facility] HEMATOLOGY MCH 30.9 27.0 - 31.0 10/10/2011 Normal [facility] HEMATOLOGY Hgb 12.0 12.0 - 16.0 10/10/2011 Normal [facility] HEMATOLOGY RBC 3.89 4.20 - 5.40 10/10/2011 LOW [facility] BEDSIDE GLUCOSE TESTING Gluc POC Lif scn 95 70 - 99 10/10/2011 Normal <sup>1</sup>Interpretive Data: Upper Reportable Limit: 200 mg/dL. [facility] BEDSIDE GLUCOSE TESTING Comment1 Notify RN/ 10/10/2011 NA [facility] BLOOD BANK RESULTS ABO/Rh O POS 10/09/2011 Unknown [facility] BLOOD BANK RESULTS Antibody Scrn Negative (10/09/2011 10:34:00) 10/09/2011 Normal [facility] CHEMISTRY Ferritin Lvl 6 5 - 204 10/09/2011 Normal [facility] CHEMISTRY Vitamin B12 Lvl 131 211 - 911 10/09/2011 LOW [facility] CHEMISTRY Folate Lvl 15.6 >=3.0 10/09/2011 Normal [facility] CHEMISTRY Iron 57 30 - 160 10/09/2011 Normal [facility] CHEMISTRY % Satur Fe 12 12 - 57 10/09/2011 Normal [facility] CHEMISTRY TIBC 471 228 - 428 10/09/2011 [facility] CHEMISTRY UIBC 414 110 - 370 10/09/2011 [facility] BLOOD BANK RESULTS RBC product Product available 2 (10/09/2011 09:01:00) 10/09/2011 Normal <sup>2</sup>Result Comment: 10/09/2011 12:02 ABBEY called to diana 10/09/2011 12:02 [facility] HEMATOLOGY Hgb 8.5 12.0 - 16.0 10/09/2011 LOW [facility] HEMATOLOGY Hct 26.1 36.0 - 48.0 10/09/2011 LOW [facility] CHEMISTRY AGAP 11.4 10.0 - 20.0 10/09/2011 Normal [facility] CHEMISTRY Sodium Lvl 147 135 - 145 10/09/2011 [facility] CHEMISTRY Creatinine Lvl 1.0 0.5 - 1.4 10/09/2011 Normal [facility] CHEMISTRY BUN 9 7 - 22 10/09/2011 Normal [facility] CHEMISTRY Potassium Lvl 3.4 3.5 - 5.1 10/09/2011 LOW [facility] CHEMISTRY Glucose Lvl 90 70 - 99 10/09/2011 Normal <sup>4</sup>Interpretive Data: Adult ref erence range values reflect the clinical guidelines of the [place] [employer]. [facility] CHEMISTRY Calcium Lvl 8.5 8.5 - 10.5 10/09/2011 Normal [facility] CHEMISTRY CO2 28 24 - 32 10/09/2011 Normal [facility] CHEMISTRY Chloride Lvl 111 95 - 109 10/09/2011 [facility] HEMATOLOGY Platelet 211 133 - 450 10/09/2011 Normal [facility] HEMATOLOGY RDW 15.1 11.5 - 14.5 10/09/2011 [facility] HEMATOLOGY MPV 9.5 7.4 - 10.4 10/09/2011 Normal [facility] HEMATOLOGY MCHC 33.3 32.0 - 36.0 10/09/2011 Normal [facility] HEMATOLOGY WBC 4.1 3.7 - 10.4 10/09/2011 Normal [facility] HEMATOLOGY RBC 3.11 4.20 - 5.40 10/09/2011 LOW [facility] HEMATOLOGY Hct 28.1 36.0 - 48.0 10/09/2011 [facility] HEMATOLOGY MCV 90.4 81.0 - 99.0 10/09/2011 Normal [facility] HEMATOLOGY Hgb 9.4 12.0 - 16.0 10/09/2011 LOW [facility] HEMATOLOGY MCH 30.1 27.0 - 31.0 10/09/2011 Normal [facility] HEMATOLOGY Lymphocytes 45.7 20.0 - 40.0 10/09/2011 [facility] HEMATOLOGY Segs 41.6 45.0 - 75.0 10/09/2011 LOW [facility] HEMATOLOGY Segs-Bands # 1.7 1.5 - 8.1 10/09/2011 Normal [facility] HEMATOLOGY Basophils 0.5 0.0 - 1.0 10/09/2011 Normal [facility] HEMATOLOGY Eosinophils 2.1 0.0 - 4.0 10/09/2011 Normal [facility] HEMATOLOGY Monocytes 10.1 2.0 - 12.0 10/09/2011 Normal [facility] HEMATOLOGY Lymphocytes # 1.9 1.0 - 5.5 10/09/2011 Normal [facility] HEMATOLOGY Eosinophils # 0.1 0.0 - 0.5 10/09/2011 Normal [facility] HEMATOLOGY Basophils # 0.0 0.0 - 0.2 10/09/2011 Normal [facility] HEMATOLOGY Monocytes # 0.4 0.0 - 0.8 10/09/2011 Normal [facility] Pathology Reports No Data Provided for This Section Diagnostic Reports Report Value Date Source Abdomen/Pelvis w IV contrast CT Patient Name: LOGAN LEIVA : 1975; Age: 40 years Female MR: [id number] Study: Abdomen/Pelvis w IV contrast CT 07/13/2016 5:27 AM TAPE [employer]K INST[employer]ER CLINICAL INDICATION: Abdominal pain, acute Pt states she has crohns and Lupus, the rt side of her abdomen and lower abd, hips, and knees hurt and has been running a fever for a few days. Pt took motrin about 2 1/2 hours ago and also has been under alot of stress lately. ADDITIONAL HISTORY: None COMPARISON: CT on 05/02/2016 TECHNIQUE: Multidetector CT imaging was performed from the diaphragm through the symphysis with multiplanar reformations obtained following the administration of IV contrast. DLP: 1637.15 mGy-cm FINDINGS: Lower thorax: Minimal scarring within the medial right middle lobe. Hepatobiliary: Hepatic steatosis. No focal hepatic lesion. Cholecystectomy. Pancreas: No focal mass or ductal dilatation. Spleen: No splenomegaly. Adrenals: No nodules. Kidneys: No hydronephrosis or renal stones. Pelvic organs: Absent uterus. Mildly distended bladder. Peritoneum/Retroperitoneum: No free air or free fluid. Lymph nodes: No lymphadenopathy. Vessels: Unremarkable. 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 No significant bowel wall thickening or obstruction. The appendix appears unremarkable. Bones and soft tissues: Posterior fusion changes of the lumbar spine. IMPRESSION: No acute intra-abdominal or intrapelvic abnormalities. Hepatic steatosis. Mildly distended bladder. SL: [id number] 07/13/2016 [facility] Chest 2 views DX Study: Chest 2 views DX Clinical Indication: Cough and fever Comparison: Chest x-ray from 05/02/2016 FINDINGS: The cardiac silhouette is normal in size. The lungs are clear and without consolidation or congestion. No pleural effusion or pneumothorax is seen. The osseous structures are unremarkable. IMPRESSION: No acute cardiopulmonary disease. SL: CHANA 07/13/2016 [facility] Small bowel series DX Small jamir wel series DX CLINICAL HISTORY: Abdominal distension; NOTE: No fluoroscopy was utilized. COMPARISON: None TECHNIQUE: Serial overhead images of the abdomen were performed at 15 to 30 minute intervals following ingestion of oral Omnipaque. Postsurgical change is noted in the lower lumbar spine. FINDINGS: Community Service Worker study reveals a nonobstructive bowel gas pattern. Moderate amount of stool is present in the colon. Surgical clips in the right upper abdomen suggest previous cholecystectomy. FINDINGS: No delay in passage of barium from the stomach into the small bowel and subsequently into the colon. There is no significant dilation of small bowel throughout the abdomen. The colon is identified on the 30 minute image and well visualized on the 60 minute image. IMPRESSION: No radiographic evidence for small bowel obstruction. SL: [id number] 05/04/2016 [facility] Enterography Abd/Pel w IV contrast CT EXAM: CT abdomen and pelvis enterography HISTORY: Crohn disease, gastric bypass; chronic abdominal pain COMPARISON: CT 04/30/2016 TECHNIQUE: Axial images obtained of the bowel, abdomen and pelvis with sagittal and coronal reformats. 100 mL Omnipaque IV contrast; 1350 mL Volumen enteric contrast placed via nasogastric tube FINDINGS: GI TRACT: Mayelin-en-Y gastric bypass with dilation of the distal alimentary limb as well as several small bowel loops in the central lower abdomen with ill- defined transition in the right lower quadrant. The terminal ileum appears unremarkable. No fistula or abscess is seen. No abnormal bowel wall enhancement is seen. Nasogastric tube is present in the gastric pouch. Stool is present throughout the colon. Normal appendix. PERITONEUM AND RETROPERITONEUM: Small amount of free fluid in the pelvis. No bulky adenopathy. Aorta is normal caliber. SOLID ORGANS: Cholecystectomy. Mild fatty change of the liver. The spleen, kidneys, adrenals and pancreas are unremarkable. The bladder remains fairly well distended. Hysterectomy. LOWER CHEST: New airspace disease in the left lower lobe of the lung. BONES: Postoperative changes lumbosacral spine. IMPRESSION: 1. Mayelin-en-Y gastric bypass. 2. Small bowel obstruction including dil ation of the Mayelin limb may be due to adhesions. 3. Otherwise, no definite inflammatory c hange to suggest active Crohn disease. 4. Constipation. 5. New airspace disease left lower lobe of the lung compatible with pneumonia. 6. New small amount of free fluid in the pelvis. 7. Fatty liver. SL: [id number] 05/02/2016 [facility] Chest 1view DX Study: Chest 1v iew DX Clinical Indication: PICC Line Placement Comparison: Chest x-ray from 12/10/2013 FINDINGS: The cardiac silhouette is normal in size. The lungs are clear and without consolidation or congestion. No pleural effusion or pneumothorax is seen. The osseous structures are unremarkable. Right-sided PICC line is seen with tip in the lower SVC. Nasogastric tube extends down the esophagus with tip terminating in the stomach. IMPRESSION: No acute cardiopulmonary disease. Right-sided PICC line with tip in the lower SVC. SL: [id number] 05/02/2016 [facility] Nasogastric tube placement VR NASOGASTRIC TUBE PLACEMENT WITH FLUOROSCOPY: HISTORY: Abdominal distention with history of gastrojejunostomy. Nasogastric tube placement under fluoroscopy was requested. PROCEDURE: A 16-Monegasque sump tube was placed under fluoroscopic guidance into the esophagus and then manipulated into the left upper quadrant of the abdomen. Contrast injection verified passage of the tube into the jejunal loop of the gastrojejunostomy. The tube was then capped and taped to the nose. The fluoroscopic time was 2.4 minutes. The patient tolerated the procedure well without immediate complications. A PICC line was subsequently placed by the PICC team. The patient was then transferred back to her hospital room in stable condition [id number] 05/02/2016 [facility] Abdomen 2 views DX ABDOMEN, 2 VIEW HISTORY: Abdominal distension; COMPARISON: Abdominal radiography dated 09/20/[address] abdomen/pelvis dated 04/30/2016 FINDINGS: Bowel gas pattern is nonobstructive. No free air collecting under either hemidiaphragm. Cholecystectomy and lumbar fusion are noted.. SL: [email or web address] 05/01/2016 [facility] Abdomen/Pelvis w IV contrast CT Clinical Indication: Abdominal pain and vomiting. Comparison: 04/12/2016 TECHNIQUE: Sequential trans-axial images were obtained with a multi-detector helical CT after administration of iodinated contrast. Coronal and sagittal reconstructions were obtained. 100 mL of Omnipaque contrast material was used for the exam. No oral contrast material was used for the exam. CT Radiation Dose DLP 1491.47 mGy-cm FINDINGS: CHEST BASE: Mild subsegmental atelectasis, otherwise lung bases are clear. No effusion or pneumothorax. Heart size normal. No pericardial effusion. LIVER: Normal size, contour, and enhancement. GALLBLADDER: Surgically removed; no abnormal findings in the postcholecystectomy bed PANCREAS: No surrounding inflammation. Normal enhancement pattern. SPLEEN: Normal size. No obvious lesions. ADRENAL GLANDS: Normal contour bilaterally. No lesions. KIDNEYS/COLLECTING SYSTEM: Normal size and contour. Normal enhancement. No stones. No hydronephrosis. Visualized portions of ureters demonstrate no obstructing calcifications. Urinary bladder moderately to markedly distended. BOWEL: Limited assessment without oral contrast. 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 Fluid-filled segments of distal small bowel does not appear inflamed or obstructed. Appendix normal in caliber without surrounding inflammation. Large right of stool noted through the entirety of the colon.. PERITONEUM/RETROPERITONEUM: - No organized fluid collection. No antonia e air. - No pathologically enlarged lymph nodes are seen in the abdomen, retroperitoneum, or pelvis. - The aorta is normal in caliber without aneurysmal dilatation. MUSCULOSKELETAL: No lytic or blastic lesion. No acute fracture or dislocation. Bilateral spinal fusion rods with transpedicular screws and L4-S1; intervertebral disc spacers and laminectomy changes present. Spinal canal is not appear to demonstrate areas of stenosis. IMPRESSION: 1. Extensive colonic fecal retention, f indings which can be seen with constipation. 2. Similar appearance of moderately to m arkedly distended urinary bladder. 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 COMPARISON: CT abdomen and pelvis dated 04/05/2016. TECHNIQUE: Helical CT imaging of the abdomen and pelvis performed from lung bases through the lesser trochanters following the administration of intravenous contrast. Axial, sagittal and coronal multiplanar reconstructions provided. IV contrast: [address] Radiation Dose: DLP = 1455.01 mGy-cm FINDINGS: LOWER CHEST: The lung bases are clear of focal consolidation, pleural effusions, and pneumothorax. The heart is unremarkable without evidence for a pericardial effusion. LIVER: Unremarkable. GALLBLADDER/BILIARY: The patient is status post cholecystectomy, with physiologic dilatation of the intrahepatic and extrahepatic bile ducts. PANCREAS: Unremarkable SPLEEN: Unremarkable ADRENALS: Unremarkable KIDNEYS AND URETERS: Unremarkable BLADDER: The bladder is moderately distended. STOMACH: There are postsurgical changes related to a gastric bypass. BOWEL: Normal in course and caliber without focal wall thickening or evidence for obstruction. There is been interval advancement of contrast into the distal aspects of the colon from prior examination. Moderate stool burden is noted throughout the colon. APPENDIX: Not well seen on this exam PELVIS: No pelvic masses are identified. PERITONEUM: No ascites or free air. LYMPH NODES: Unremarkable. VASCULAR: Unremarkable. OSSEOUS STRUCTURES: Postsurgical changes related to spinal fusion within the lower cervical spine are visualized. There are transpedicular screws stabilized by paired vertical rods at L4, L5, and S1 with intervertebral disc spacer is present at L4-L5 and L5-S1. Decompressive posterior laminectomies have been performed at L4-L5 and L5-S1. SOFT TISSUES: Unremarkable IMPRESSION: 1. Moderate distention of the colon with oral contrast and stool without evidence for focal obstruction. There is been interval advancement of oral contrast into the distal aspects of the colon from prior examination. Please correlate for constipation. 2. Prominence of the intrahepatic and ex trahepatic bile ducts, likely secondary to cholecystectomy. Further correlation with liver function tests is recommended. 3. Moderate distention of the bladder. 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 COMPARISON: None Available. TECHNIQUE: Frontal, oblique, and lateral views of the right ankle were obtained. FINDINGS: No fracture or malalignment is present. The soft tissues are within normal limits. There are no radiopaque foreign bodies. IMPRESSION: No acute fracture or dislocation. SL: [id number] 04/11/2016 [facility] Brain wo contrast CT Clinical Indication: Altered level of consciousness abd pain sent to er by Martha. Pt had Crohn's flair up 4 days ago. Pt denies black or bloody stools Comparison: 12/10/2013 TECHNIQUE: CT images were obtained from the foramen magnum to the vertex without the use of intravenous contrast on a multidetector CT. Coronal and sagittal reconstructions were obtained. CT radiation dose DLP: 1720.23 mGy-cm FINDINGS: BRAIN PARENCHYMA: There are otherwise normal howard-white interfaces, sulci and gyri. There are no focal mass lesions on this noncontrast head CT. There is no mass effect, midline shift or edema. There are no intra-axial or extra-axial fluid collections, intraventricular or intraparenchymal hemorrhage. The pineal, sellar, brainstem, cerebellum and skull base regions appear unremarkable. VENTRICLES: The lateral ventricles, third and fourth ventricles appear unremarkable. The basilar cisterns are normal. ORBITS, MASTOIDS AND PARANASAL SINUSES: The visualized orbits and paranasal sinuses are otherwise unremarkable. Slight opacification of the left mastoid air cells suggesting mastoiditis in the appropriate clinical setting. SKULL: There are no osseous abnormalities. If there is further concern for intracranial pathology or acute stroke, MRI of the brain may be performed for complete assessment. IMPRESSION: 1. Unremarkable noncontrast head CT wit h no CT evidence of a mass, hemorrhage, or subacute stroke. 2. Slight opacification of the left mas toid air cells suggesting mastoiditis in the appropriate clinical setting. SL: JORGE 04/05/2016 [facility] Abdomen/Pelvis w IV contrast CT Study: CT abdomen and pelvis with contrast. HISTORY: Acute abdominal pain Comments: Abdomen pelvic CT was obtained utilizing multiple axial images from the lung bases to the pelvic outlet. Intravenous contrast was given. Sagittal and coronal reconstructions were reviewed. Visualized lower chest: The lung bases are clear. Normal size heart. ABDOMEN: The liver, spleen, kidneys, pancreas and adrenal glands are within normal limits. Intrahepatic and extrahepatic bile duct dilatation, likely due to cholecystectomy. The small and large bowel loops are nondilated. No evidence of acute appendicitis or diverticulitis. Surgical sutures in the small bowel in the left abdomen. No free intraperitoneal air or fluid collections. Metallic hardware in the lumbar spine. Impression: No acute inflammatory process in the abdomen or pelvis 04/05/2016 [facility] Abdomen RUQ US Clinical Indica tion: Abdominal pain, acute; Comparison: Abdominal ultrasound 12/15/2013, abdominal magnetic resonance imaging 09/14/2014 TECHNIQUE: Grayscale and limited color sonographic evaluation of the right upper quadrant of the abdomen and gallbladder region was performed with standard technique. FINDINGS: LIVER: The visualized liver shows normal contour, size, and morphology with increased parenchymal echo texture. BILE DUCTS: The intrahepatic and extrahepatic bile ducts are not dilated with the common bile duct measuring 7 mm. The distal common bile duct is not well seen. GALLBLADDER: Surgically absent. PANCREAS: The visualized pancreas appears unremarkable. KIDNEY: The right kidney measures 9.7 x 3.6 x 5.3 cm. There is normal renal contour and morphology, with normal parenchymal echotexture. There is no hydronephrosis. AORTA AND INFERIOR VENA CAVA: Visualized portions appear unremarkable. ASCITES: There is no right upper quadrant abdominal ascites. IMPRESSION: 1. No acute sonographic abnormalities of the right upper quadrant. Hepatic steatosis. 2. Patient has had a cholecystectomy. SL: FREDY 03/02/2016 [facility] Forearm 2 views DX Left forear m series, Mar 20, 2015 07:23:00 PM CLINICAL HISTORY: Fracture arm about 2 weeks ago, with fall again today; Pain Post Trauma TECHNIQUE: Routine AP and lateral views of the left forearm were obtained. COMPARISON: March 2005 left wrist FINDINGS and IMPRESSION: Distal radial metaphyseal fracture , possibly subacute if concordant with history, well reduced. Radiopaque cast material obscures fine bony detail. SL: 14 03/20/2015 [facility] Abdomen AP DX HISTORY: Abdomin al pain. Abdomen one view. Comparison 12/16/2013. Normal bowel gas pattern. Right upper quadrant surgical clips. Previous lower lumbar laminectomy and fusion. Bilateral pelvic phleboliths. No other pathologic calcification. IMPRESSION: No specific acute finding. SL:13 09/20/2014 [facility] Abdomen wo contrast MRI MRCP: TECHNIQUE: Axial and coronal T2 tomographic images were done through the biliary tree followed by thick slab MRCP images. FINDINGS: The gallbladder is not visualized consistent with cholecystectomy. A cystic duct remnant is seen with maximum diameter of 3 to 4 mm. There is mild to moderate biliary dilatation, increasing since the previous MRCP on 09/07/2013. The common hepatic duct measures 11 mm in diameter. The common bile duct measures 10 mm in diameter. No strictures or filling defects are demonstrated. The pancreatic duct is not dilated, measuring 2 mm or less in diameter. No significant anatomical variants are seen. The liver, spleen, pancreas, kidneys and adrenal glands show no significant abnormalities or changes from the previous study. IMPRESSION: 1. Post cholecystectomy. 2. Interval biliary dilatation since , without evidence of strictures or choledocholithiasis. This is somewhat more than expected for post cholecystectomy physiologic dilatation. Ampullary pathology should be excluded. 3. Normal pancreatic duct. SL:13 09/14/2014 [facility] Foot series LEFT FOOT SERIES- 3 VIEWS (PORTABLE) HX: Trauma / FINDINGS: AP, lateral and oblique views reveal no evidence of fracture, dislocation or radiopaque foreign body. The visualized soft tissues are somewhat heterogeneous in the region of the heel pad. This may be due to edema/contusion. IMPRESSION: Heterogeneous appearance of soft tissues in the heel pad region. Otherwise negative. SL: 13 02/09/2014 [facility] Abdomen AP view Portable abdom en: The exam is limited by motion. There is moderate fecal material in the right colon with mild distention. Mildly distended small bowel in the midabdomen is seen. There is no visible pneumoperitoneum. Surgical clips are noted in the right upper quadrant. There is a linear rectangular metallic opacity over the midline of the pelvis not seen on the previous radiographs of 09/01/2013. Surgical hardware in the lower lumbar spine is again seen. IMPRESSION: Nonspecific bowel distention without obstruction. SL:12/16/2013 [facility] Abdomen complete US HISTORY: A bdominal pain. Gallbladder absent. Visualized liver and pancreas normal. Common bile duct mildly prominent at 7 to 8 mm. This could be physiologic post cholecystectomy. Correlate with laboratory data to assess significance. Right kidney is 8.7 x 3.9 x 4.8 and left kidney 9.9 x 5.4 x 4.6 cm. There is no hydronephrosis or focal renal lesion demonstrates. Spleen is 9 cm length appearing normal. Aorta and IVC visualized are not remarkable. IMPRESSION: Post cholecystectomy. Mild prominence of the common bile duct. This could be physiologic post cholecystectomy. Correlate with laboratory data. No other acute findings SL:12/15/2013 [facility] Chest 2 views HISTORY: Abnorma l chest sounds. Two views chest. Lungs are clear. Heart size normal. There is no pleural effusion or pneumothorax. No specific osseous abnormality. IMPRESSION: No acute finding. SL:12/10/2013 [facility] Brain wo contrast CT CT BRAIN WITHOUT CONTRAST INDICATION: Headache with dizziness COMPARISON: CT brain 09/06/2013 FINDINGS: There is no evidence of acute vascular insults, space occupying lesions, hemorrhage, hydrocephalus, midline shift, or extra-axial collections. The calvarium is intact. IMPRESSION: No acute intracranial abnormalities are visualized. SL: 12/10/2013 [facility] Spine lumbar wo contrast MRI M MA LUMBAR SPINE WITHOUT CONTRAST COMPARISON: 03/07/2012 radiograph exam. TECHNIQUE: Sagittal T1, sagittal T2 with fat saturation, axial T1 and axial T2 images were obtained. No intravenous gadolinium was given. FINDINGS: The paravertebral soft tissues are normal. The conus medullaris terminates at the L1-L2 level. L1-L2: Unremarkable. L2-L3: No central canal stenosis is seen. Mild facet osteoarthritis is seen. Mild left foraminal disc bulge is seen with minimal left foraminal stenosis. No mass effect on the left L2 exiting nerve root sleeve is present. L3-L4: Minimal central canal stenosis is seen. Moderate facet osteoarthritis is present. Small left foraminal annular fissure is seen. No foraminal stenosis is present. L4-L5: Solid-appearing PLIF changes are seen. The thecal sac is capacious. No pseudomeningocele is identified. No foraminal stenosis is seen. L5-S1: Solid-appearing PLIF is identified. No pseudomeningocele is identified. No thecal sac stenosis is seen. No foraminal stenosis is identified. IMPRESSION: 1. L4-L5 and L5-S1 solid-appearing PLIF. No central canal or foraminal stenosis identified at these levels. 2. L2-L3 minimal left foraminal stenosis , L3-L4 minimal central canal stenosis as above. 12/05/2013 [facility] Chest 1view HISTORY: Line plac ement. One view chest. Comparison 09/18/2013. Right arm PICC is at the SVC. The lungs are clear. Heart size normal. No pleural effusion. IMPRESSION: Stable chest. New PICC line satisfactory SL:13 09/19/2013 [facility] Chest 2 views EXAM: Chest 2 views HISTORY: Abnormal chest sounds. COMPARISON: 06/05/2013. TECHNIQUE: Frontal and lateral views of the chest. FINDINGS: Heart size normal. The lungs are clear. No pleural effusion. IMPRESSION: Negative chest radiographs. SL: 14 09/19/2013 [facility] Abdomen AP view Examination: A bdomen, 2 views History: Abdominal pain, acute Comparison: 09/06/2013 Findings: Two views of the abdomen show a nonobstructive bowel gas pattern with small amount of retained contrast throughout the ascending colon. Surgical clips in the right upper quadrant are seen. No intraperitoneal free air is noted. Postoperative changes of laminectomy and fusion in the lower lumbar spine are seen. Calcified phleboliths in the pelvis are seen. IMPRESSION: Nonobstructive bowel gas pattern. SL: 12 09/09/2013 [facility] Abdomen wo contrast MRI MR ABD OMEN (MRCP) HX: MRCP WO JOANNA TECHNIQUE: Single shot fast spin-echo axial and coronal views are obtained in addition to T2 FRFSE, axial 2-D FIESTA fat sat and thick slab T2 weighted imaging. FINDINGS: The study shows no evidence of gallbladder. Gallbladder is presumed please surgically absent. There is no evidence of pleural or peritoneal effusion. No focal lesions are noted in the liver. There is no evidence of enlargement of the intrahepatic bile ducts. The pancreas is visualized and is within normal limits. The visualized portions of the adrenal glands, kidneys and spleen are unremarkable. 3-D volume renderings of the common duct showed distention to a maximum diameter approximately 9.5 mm. No filling defects are identified within the extrahepatic ducts. The pancreatic duct is visualized and is normal in size. The intrahepatic radicles appear smooth in contour. IMPRESSION: 1. Residual dilatation of the common karla t. This may be normal in a patient with previous cholecystectomy. 2. Gallbladder not visualized and presum ed surgically absent. SL: 09/07/2013 [facility] Brain contrast CT Examinati on: CT scan of the brain without contrast. HISTORY: Vomiting COMPARISON: CT of the brain from 07/17/2012 DLP: 859.11 TECHNIQUE: Multiple axial CT images of the brain were obtained without the administration of intravenous contrast. FINDINGS: The brain parenchyma is normal in volume and morphology. No acute intracranial hemorrhage, mass effect, midline shift, or hydrocephalus is seen. There are no extra-axial fluid collections. The visualized paranasal sinuses and mastoid air cells are well-aerated. The optic globes and retrobulbar soft tissues are unremarkable. IMPRESSION: No acute intracranial abnormality. SL: 09/06/2013 [facility] Bowel small bowel series Small bowel series: COMPARISON: CT abdomen pelvis 09/01/2013 The surgical coder film reveals a nonobstructive bowel gas pattern. Surgical clips in the right upper abdomen indicate previous cholecystectomy. Status post lumbar surgery with transpedicular screws in place at the LS junction. TECHNIQUE: The patient ingested oral barium without difficulty, serial KUBs were obtained and the transit of barium was followed from the stomach into the colon. FINDINGS: The mucosal pattern of the small bowel in the jejunum and the ileum is normal. There is minimal to mild distention of small bowel loops. No delay in transit of barium from the small bowel to colon. Region of terminal ileum not well demonstrated despite obtaining a focused fluoroscopic images. No obstructing mass or strictures are visualized in the bowel. IMPRESSION: Minimal to mild nonspecific distention of small bowel loops without delay in transit of barium from the small bowel to the colon. No evidence to suggest any significant obstruction. Fluoroscopy Time: 0.5 minutes SL:09/06/2013 [facility] Abdomen contrast MRI MRCP. TECHNIQUE: Multiple imaging sequences were obtained including axial T1, coronal T2 SS FSE, axial T2 SS FSE, axial T2 fat-saturated, and three-dimensional thick slab. COMPARISON: CT abdomen 09/01/2013 FINDINGS: The biliary system is reasonably well demonstrated. The common bile duct is of mildly dilated with maximum caliber at 8 mm. Questionable filling defect in the distal common bile duct on one of the MRCP images but not verified on the other MRCP and cross-sectional images. The pancreatic duct is faintly visualized but appears grossly unremarkable. Status post cholecystectomy. No gross abnormality is visualized in the liver, spleen, either kidney or adrenal gland. No ascites is visualized in the upper abdomen. IMPRESSION: Status post cholecystectomy. Mild dilation of common bile duct. No definite evidence for choledocholithiasis. SL:09/03/2013 [facility] Abdomen/Pelvis w IV contrast CT CT Abdomen with Contrast, CT Pelvis with Contrast: TECHNIQUE: Contiguous transaxial images of the abdomen and pelvis were performed from the lung bases to the superior pubic rami with IV contrast. Oral contrast was also administered COMPARISON: 07/16/2012 CLINICAL HX: Abdominal pain CT ABDOMEN: Lower Chest: The lung bases are clear. Abdominal viscera: The liver, spleen, pancreas, both kidneys, and both adrenals demonstrate normal morphology. Status post cholecystectomy. GI Tract: Surgical clips are noted in the region of the stomach and proximal jejunum possibly related to a gastric bypass. No evidence for small or large bowel obstruction. Moderate to large amount retained stool is present in the colon. There is no evidence for free fluid or free air in the abdomen. Retroperitoneum and Vasculature: No significant retroperitoneal lymphadenopathy is noted. Bone and Soft tissues: Transpedicular screws are visualized in the lumbosacral spine, stable from prior exam. No other significant bony abnormality is noted. CT PELVIS: Moderate to severe distention of the bladder. Uterus is not visualized suggesting previous hysterectomy. No gross adnexal mass. IMPRESSION: Moderate to large retained stool is present in the colon. No evidence to suggest small or large bowel obstruction. Moderate to severe distention of the bladder. No other significant abnormality is noted on the contrast CT of the abdomen or pelvis. SL:09/01/2013 [facility] Abdomen AP view PROCEDURE: Ab domen 1 view REASON FOR EXAM: See Clinic Indication CLINICAL INDICATION: Abdominal pain, acute COMPARISON: 09/27/2012. FINDINGS: Nonspecific bowel gas pattern is present. No definite free air. Abundance of stool with within the colon. Multiple phleboliths are present in the pelvis. Postoperative cholecystectomy. Postoperative laminectomy and posterior spinal fusion are present. SL: 06/08/2013 [facility] Sinus wo contrast CT CT SINUSE S WITHOUT CONTRAST WITH SAGITTAL AND CORONAL REFORMATTED IMAGES. HISTORY: Sinus infection, facial pain. COMPARISON: CT brain dated 09/27/2012. FINDINGS: There is mild mucosal thickening and small air-fluid levels in the bilateral maxillary sinuses. No maxillary sinus erosion or expansion. The ostiomeatal complex is opacified bilaterally by mucosal thickening. There is moderate mucosal thickening throughout the anterior ethmoid air cells. The frontal sinuses clear. Mild fluid is identified within the sphenoid sinus. The nasal passages are clear. No osseous erosions are seen to suggest aggressive infectious process. The mastoid air cells are clear. The orbits appear normal. IMPRESSION: 1. Mild-moderate sinusitis as described. 2. No osseous erosion or other signs of aggressive infectious process are identified. SL: 17 06/06/2013 [facility] Chest 2 views EXAM: Chest 2 views HISTORY: Cough, fever. COMPARISON: 02/12/2013. TECHNIQUE: Frontal and lateral views of the chest. FINDINGS: Heart size normal. The lungs are clear. No pleural effusion. IMPRESSION: Negative chest radiographs. SL:13 06/05/2013 [facility] Chest 2 views HISTORY: Chest p ain. Chest 2 views. Lungs are clear. Cardiomediastinal silhouette normal. There is no pleural effusion or pneumothorax. IMPRESSION: No acute findings. 12 02/12/2013 [facility] Hip min 2 views EXAM: RIGHT HI P 2 VIEWS. EXAM: PELVIS 1 VIEW. DATE: September 27, 2012 11:10:00 PM. INDICATION: Pain, Trauma. COMPARISON: None. TECHNIQUE: AP and frog leg lateral radiographs of the right hip and a single AP radiograph of the pelvis were obtained. FINDINGS: No fracture, dislocation, or other acute bony abnormality is identified. Patient is status post posterior fusion L4-S1 with laminectomies at L4 and L5. Paraspinal bone graft is seen at L4-S1. Phleboliths are noted in the pelvis. The soft tissues are unremarkable. IMPRESSION: No acute abnormality. 09/27/2012 [facility] Brain wo contrast CT CT SCAN O F THE BRAIN DATE: 09/27/2012 at 9:42 p.m. Comparison studies: 09/16/2012. CLINICAL INFORMATION: Syncope. TECHNIQUE: Routine axial images of the brain were obtained in the unenhanced mode. FINDINGS: The brain is morphologically normal. There are no acute hemorrhages or infarcts. The howrad/white interfaces are well defined. There are no mass lesions or extra-axial collections. There are no acute bony abnormalities. The calvarium is intact. IMPRESSION: 1. Normal CT scan of the brain. 09/27/2012 [facility] Consultation Notes No Data Provided for This Section Discharge Summaries No Data Provided for This Section History and Physicals No Data Provided for This Section Vital Signs Vital Sign Value Date Comments Source Respitory Rate 16 08/05/2016 [facility] Systolic (mm Hg) 106 08/05/2016 [facility] Diastolic (mm Hg) 67 08/05/2016 [facility] Heart Rate 66 08/05/2016 [facility] Temperature Oral (F) 96.8 F 08/05/2016 [facility] Height 170.18 cm 08/05/2016 [facility] Weight 68.636 08/05/2016 [facility] BMI Calculated 23.7 08/05/2016 [facility] Temperature Oral (F) 97.5 F 08/05/2016 [facility] Systolic (mm Hg) 103 08/05/2016 [facility] Diastolic (mm Hg) 72 08/05/2016 [facility] Heart Rate 108 08/05/2016 [facility] Respitory Rate 20 08/05/2016 [facility] Respitory Rate 16 07/13/2016 [facility] Heart Rate 74 07/13/2016 [facility] Systolic (mm Hg) 116 07/13/2016 [facility] Diastolic (mm Hg) 72 07/13/2016 [facility] Temperature Oral (F) 97.8 F 07/13/2016 [facility] Heart Rate 76 07/13/2016 [facility] Systolic (mm Hg) 122 07/13/2016 [facility] Diastolic (mm Hg) 76 07/13/2016 [facility] Respitory Rate 19 07/13/2016 [facility] Systolic (mm Hg) 112 07/13/2016 [facility] Diastolic (mm Hg) 62 07/13/2016 [facility] Respitory Rate 17 07/13/2016 [facility] Heart Rate 72 07/13/2016 [facility] Temperature Oral (F) 98 F 07/13/2016 [facility] Height 167.64 cm 07/13/2016 [facility] BMI Calculated 23.13 07/13/2016 [facility] Weight 65 0 07/13/2016 [facility] Temperature Oral (F) 98.3 F 07/13/2016 [facility] Respitory Rate 17 05/10/2016 [facility] Temperature Oral (F) 98.5 F 05/10/2016 [facility] Heart Rate 90 05/10/2016 [facility] Systolic (mm Hg) 119 05/10/2016 [facility] Diastolic (mm Hg) 71 05/10/2016 [facility] Respitory Rate 16 05/10/2016 [facility] Heart Rate 86 05/10/2016 [facility] Systolic (mm Hg) 104 05/10/2016 [facility] Diastolic (mm Hg) 66 05/10/2016 [facility] Respitory Rate 17 05/10/2016 [facility] Temperature Oral (F) 98.3 F 05/10/2016 [facility] Systolic (mm Hg) 119 05/10/2016 [facility] Diastolic (mm Hg) 64 05/10/2016 [facility] Heart Rate 79 05/10/2016 [facility] Temperature Oral (F) 98.4 F 05/10/2016 [facility] Weight 68.835 05/05/2016 [facility] BMI Calculated 24.49 05/05/2016 [facility] Height 167.64 cm 05/05/2016 [facility] Height 167.64 cm 04/30/2016 [facility] BMI Calculated 23.61 04/30/2016 [facility] Weight 66.364 04/30/2016 [facility] Height 167.64 cm 04/29/2016 [facility] BMI Calculated 23.29 04/29/2016 [facility] Weight 65.455 04/29/2016 [facility] Systolic (mm Hg) 117 04/12/2016 [facility] Diastolic (mm Hg) 73 04/12/2016 [facility] Respitory Rate 15 04/12/2016 [facility] Temperature Oral (F) 98.0 F 04/12/2016 [facility] Heart Rate 70 04/12/2016 [facility] Weight 64.091 04/12/2016 [facility] Height 167.64 cm 04/12/2016 [facility] BMI Calculated 22.81 04/12/2016 [facility] Respitory Rate 17 04/12/2016 [facility] Systolic (mm Hg) 148 04/12/2016 [facility] Diastolic (mm Hg) 106 04/12/2016 [facility] Respitory Rate 18 04/12/2016 [facility] Temperature Oral (F) 98.0 F 04/12/2016 [facility] Heart Rate 68 04/12/2016 [facility] Systolic (mm Hg) 106 04/12/2016 [facility] Diastolic (mm Hg) 57 04/12/2016 [facility] Heart Rate 72 04/12/2016 [facility] Temperature Oral (F) 98.4 F 04/12/2016 [facility] BMI Calculated 22.81 04/12/2016 [facility] Weight 64.091 04/12/2016 [facility] Height 167.64 cm 04/12/2016 [facility] Respitory Rate 18 04/06/2016 [facility] Systolic (mm Hg) 112 04/06/2016 [facility] Diastolic (mm Hg) 82 04/06/2016 [facility] Heart Rate 72 04/06/2016 [facility] Temperature Oral (F) 97.8 F 04/06/2016 [facility] Heart Rate 66 04/06/2016 [facility] Systolic (mm Hg) 125 04/06/2016 [facility] Respitory Rate 18 04/06/2016 [facility] Diastolic (mm Hg) 73 04/06/2016 [facility] Temperature Oral (F) 97.7 F 04/06/2016 [facility] Weight 64.091 04/06/2016 [facility] Respitory Rate 18 04/06/2016 [facility] Temperature Oral (F) 97.8 F 04/06/2016 [facility] Height 165.1 cm 04/06/2016 [facility] BMI Calculated 23.51 04/06/2016 [facility] Heart Rate 71 04/06/2016 [facility] Systolic (mm Hg) 129 04/06/2016 [facility] Diastolic (mm Hg) 88 04/06/2016 [facility] Systolic (mm Hg) 130 03/03/2016 [facility] Diastolic (mm Hg) 86 03/03/2016 [facility] Respitory Rate 18 03/03/2016 [facility] Temperature Oral (F) 98.2 F 03/03/2016 [facility] Heart Rate 88 03/03/2016 [facility] Temperature Oral (F) 98.0 F 03/03/2016 [facility] Respitory Rate 18 03/03/2016 [facility] Systolic (mm Hg) 132 03/03/2016 [facility] Diastolic (mm Hg) 86 03/03/2016 [facility] Heart Rate 88 03/03/2016 [facility] Height 167.64 cm 03/03/2016 [facility] BMI Calculated 22 03/03/2016 [facility] Weight 61.818 03/03/2016 [facility] Temperature Oral (F) 98.0 F 03/03/2016 [facility] Heart Rate 82 03/03/2016 [facility] Respitory Rate 18 03/03/2016 [facility] Systolic (mm Hg) 112 03/03/2016 [facility] Diastolic (mm Hg) 78 03/03/2016 [facility] Systolic (mm Hg) 130 03/21/2015 [facility] Diastolic (mm Hg) 78 03/21/2015 [facility] Respitory Rate 20 03/21/2015 [facility] Heart Rate 88 03/21/2015 [facility] Temperature Oral (F) 98.0 F 03/21/2015 [facility] Weight 64.545 03/21/2015 [facility] BMI Calculated 22.97 03/21/2015 [facility] Respitory Rate 24 03/21/2015 [facility] Heart Rate 90 03/21/2015 [facility] Systolic (mm Hg) 137 03/21/2015 [facility] Diastolic (mm Hg) 77 03/21/2015 [facility] Temperature Oral (F) 98.3 F 03/21/2015 [facility] Height 167.64 cm 03/21/2015 [facility] Systolic (mm Hg) 123 09/30/2014 [facility] Diastolic (mm Hg) 85 09/30/2014 [facility] Temperature Oral (F) 98 F 09/30/2014 [facility] Respitory Rate 16 09/30/2014 [facility] Heart Rate 72 09/30/2014 [facility] Heart Rate 89 09/30/2014 [facility] Systolic (mm Hg) 114 09/30/2014 [facility] Diastolic (mm Hg) 76 09/30/2014 [facility] Temperature Oral (F) 97.9 F 09/30/2014 [facility] Respitory Rate 16 09/30/2014 [facility] Respitory Rate 16 09/29/2014 [facility] Systolic (mm Hg) 110 09/29/2014 [facility] Diastolic (mm Hg) 71 09/29/2014 [facility] Heart Rate 80 09/29/2014 [facility] Temperature Oral (F) 97.5 F 09/29/2014 [facility] BMI Calculated 23.29 09/14/2014 [facility] Weight 65.455 09/14/2014 [facility] Height 167.64 cm 09/14/2014 [facility] BMI Calculated 20.72 09/14/2014 [facility] Weight 60 0 09/14/2014 [facility] Height 170.18 cm 09/14/2014 [facility] Respitory Rate 18 02/09/2014 [facility] Heart Rate 63 02/09/2014 [facility] Systolic (mm Hg) 117 02/09/2014 [facility] Diastolic (mm Hg) 79 02/09/2014 [facility] Temperature Oral (F) 97.6 F 02/09/2014 [facility] BMI Calculated 23.61 02/09/2014 [facility] Height 167.64 cm 02/09/2014 [facility] Weight 66.364 02/09/2014 [facility] Diastolic (mm Hg) 75 02/09/2014 [facility] Respitory Rate 18 02/09/2014 [facility] Heart Rate 75 02/09/2014 [facility] Temperature Oral (F) 97.7 F 02/09/2014 [facility] Systolic (mm Hg) 117 02/09/2014 [facility] Weight 66.364 02/09/2014 [facility] BMI Calculated 23.61 02/09/2014 [facility] Height 167.64 cm 02/09/2014 [facility] Diastolic (mm Hg) 69 2013 [facility] Systolic (mm Hg) 101 2013 [facility] Heart Rate 86 2013 [facility] Respitory Rate 17 2013 [facility] Temperature Oral (F) 98.2 F 2013 [facility] Diastolic (mm Hg) 78 2013 [facility] Systolic (mm Hg) 113 2013 [facility] Respitory Rate 18 2013 [facility] Temperature Oral (F) 98.0 F 2013 [facility] Heart Rate 80 2013 [facility] Diastolic (mm Hg) 82 2013 [facility] Systolic (mm Hg) 125 2013 [facility] Heart Rate 88 2013 [facility] Temperature Oral (F) 97.4 F 2013 [facility] Respitory Rate 17 2013 [facility] Height 170.18 cm 12/10/2013 [facility] BMI Calculated 21.97 12/10/2013 [facility] Weight 63.636 12/10/2013 [facility] Height 170.18 cm 12/07/2013 [facility] BMI Calculated 22.29 12/07/2013 [facility] Weight 64.545 12/07/2013 [facility] Systolic (mm Hg) 116 12/07/2013 [facility] Temperature Oral (F) 98.4 F 12/07/2013 [facility] Respitory Rate 18 12/07/2013 [facility] Heart Rate 71 12/07/2013 [facility] Diastolic (mm Hg) 74 12/07/2013 [facility] Temperature Oral (F) 98.3 F 09/24/2013 [facility] Systolic (mm Hg) 115 09/24/2013 [facility] Diastolic (mm Hg) 77 09/24/2013 [facility] Heart Rate 108 09/24/2013 [facility] Respitory Rate 16 09/24/2013 [facility] Heart Rate 92 09/24/2013 [facility] Temperature Oral (F) 98.1 F 09/24/2013 [facility] Respitory Rate 16 09/24/2013 [facility] Systolic (mm Hg) 112 09/24/2013 [facility] Diastolic (mm Hg) 75 09/24/2013 [facility] Temperature Oral (F) 98.2 F 09/24/2013 [facility] Systolic (mm Hg) 114 09/24/2013 [facility] Respitory Rate 16 09/24/2013 [facility] Heart Rate 97 09/24/2013 [facility] Diastolic (mm Hg) 73 09/24/2013 [facility] BMI Calculated 23.29 09/18/2013 [facility] Height 167.64 cm 09/18/2013 [facility] Weight 65.455 09/18/2013 [facility] Temperature Oral (F) 98.1 F 09/13/2013 [facility] Systolic (mm Hg) 104 09/13/2013 [facility] Diastolic (mm Hg) 62 09/13/2013 [facility] Diastolic (mm Hg) 50 09/13/2013 [facility] Systolic (mm Hg) 98 09/13/2013 [facility] Temperature Oral (F) 98.1 F 09/13/2013 [facility] Systolic (mm Hg) 110 09/13/2013 [facility] Diastolic (mm Hg) 64 09/13/2013 [facility] BMI Calculated 24.75 09/12/2013 [facility] Height 167.64 cm 09/12/2013 [facility] Weight 69.545 09/12/2013 [facility] Respitory Rate 18 09/12/2013 [facility] Temperature Oral (F) 98.2 F 09/12/2013 [facility] Heart Rate 100 09/12/2013 [facility] Temperature Oral (F) 97.9 F 09/10/2013 [facility] Heart Rate 72 09/10/2013 [facility] Respitory Rate 16 09/10/2013 [facility] Diastolic (mm Hg) 62 09/10/2013 [facility] Systolic (mm Hg) 111 09/10/2013 [facility] Temperature Oral (F) 97.9 F 09/10/2013 [facility] Heart Rate 92 09/10/2013 [facility] Respitory Rate 16 09/10/2013 [facility] Systolic (mm Hg) 114 09/10/2013 [facility] Diastolic (mm Hg) 66 09/10/2013 [facility] Systolic (mm Hg) 103 09/10/2013 [facility] Diastolic (mm Hg) 61 09/10/2013 [facility] Heart Rate 75 09/10/2013 [facility] Temperature Oral (F) 98.2 F 09/10/2013 [facility] Respitory Rate 18 09/10/2013 [facility] Weight 67.273 09/02/2013 [facility] BMI Calculated 23.94 09/02/2013 [facility] Height 167.64 cm 09/02/2013 [facility] Temperature Oral (F) 97.1 F 09/01/2013 [facility] Diastolic (mm Hg) 82 09/01/2013 [facility] Systolic (mm Hg) 129 09/01/2013 [facility] Respitory Rate 18 09/01/2013 [facility] Heart Rate 87 09/01/2013 [facility] Temperature Oral (F) 97.2 F 09/01/2013 [facility] Respitory Rate 18 09/01/2013 [facility] Systolic (mm Hg) 127 09/01/2013 [facility] Diastolic (mm Hg) 80 09/01/2013 [facility] Heart Rate 70 09/01/2013 [facility] Systolic (mm Hg) 138 09/01/2013 [facility] Diastolic (mm Hg) 96 09/01/2013 [facility] Respitory Rate 18 09/01/2013 [facility] Heart Rate 72 09/01/2013 [facility] Temperature Oral (F) 97.6 F 09/01/2013 [facility] Weight 63.636 09/01/2013 [facility] Systolic (mm Hg) 132 06/10/2013 [facility] Diastolic (mm Hg) 88 06/10/2013 [facility] Temperature Oral (F) 98.4 F 06/10/2013 [facility] Respitory Rate 18 06/10/2013 [facility] Heart Rate 74 06/10/2013 [facility] Respitory Rate 16 06/10/2013 [facility] Diastolic (mm Hg) 60 06/10/2013 [facility] Temperature Oral (F) 98.0 F 06/10/2013 [facility] Systolic (mm Hg) 104 06/10/2013 [facility] Heart Rate 77 06/10/2013 [facility] Respitory Rate 16 06/10/2013 [facility] Heart Rate 78 06/10/2013 [facility] Temperature Oral (F) 98.0 F 06/10/2013 [facility] Systolic (mm Hg) 107 06/10/2013 [facility] Diastolic (mm Hg) 62 06/10/2013 [facility] Weight 66.364 06/05/2013 [facility] Height 170.18 cm 06/05/2013 [facility] Respitory Rate 16 02/12/2013 [facility] Systolic (mm Hg) 114 02/12/2013 [facility] Diastolic (mm Hg) 75 02/12/2013 [facility] Heart Rate 82 02/12/2013 [facility] Respitory Rate 18 02/12/2013 [facility] Systolic (mm Hg) 124 02/12/2013 [facility] Diastolic (mm Hg) 70 02/12/2013 [facility] Heart Rate 82 02/12/2013 [facility] Systolic (mm Hg) 133 02/12/2013 [facility] Diastolic (mm Hg) 75 02/12/2013 [facility] Heart Rate 83 02/12/2013 [facility] Respitory Rate 18 02/12/2013 [facility] Weight 67.727 02/12/2013 [facility] Height 170.18 cm 02/12/2013 [facility] Temperature Oral (F) 98.8 F 02/12/2013 [facility] Weight 66.818 10/19/2012 [facility] Height 170.18 cm 10/19/2012 [facility] Weight 64.545 09/28/2012 [facility] Height 170.18 cm 09/28/2012 [facility] Temperature Oral (F) 97.9 F 08/11/2012 [facility] Heart Rate 71 08/11/2012 [facility] Diastolic (mm Hg) 74 08/11/2012 [facility] Respitory Rate 18 08/11/2012 [facility] Systolic (mm Hg) 109 08/11/2012 [facility] Heart Rate 73 08/11/2012 [facility] Diastolic (mm Hg) 60 08/11/2012 [facility] Systolic (mm Hg) 98 08/11/2012 [facility] Respitory Rate 18 08/11/2012 [facility] Temperature Oral (F) 97.9 F 08/11/2012 [facility] Diastolic (mm Hg) 55 08/11/2012 [facility] Heart Rate 64 08/11/2012 [facility] Respitory Rate 19 08/11/2012 [facility] Systolic (mm Hg) 87 08/11/2012 [facility] Temperature Oral (F) 97.6 F 08/11/2012 [facility] Weight 66.818 08/06/2012 [facility] Height 167.64 cm 08/06/2012 [facility] Height 167.64 cm 08/06/2012 [facility] Weight 66.818 08/06/2012 [facility] Diastolic (mm Hg) 70 07/19/2012 [facility] Heart Rate 92 07/19/2012 [facility] Systolic (mm Hg) 112 07/19/2012 [facility] Respitory Rate 18 07/19/2012 [facility] Temperature Oral (F) 97.4 F 07/19/2012 [facility] Diastolic (mm Hg) 76 07/19/2012 [facility] Systolic (mm Hg) 118 07/19/2012 [facility] Respitory Rate 18 07/19/2012 [facility] Heart Rate 104 07/19/2012 [facility] Temperature Oral (F) 97.8 F 07/19/2012 [facility] Systolic (mm Hg) 115 07/19/2012 [facility] Respitory Rate 18 07/19/2012 [facility] Temperature Oral (F) 97.5 F 07/19/2012 [facility] Diastolic (mm Hg) 71 07/19/2012 [facility] Heart Rate 86 07/19/2012 [facility] Height 167.64 cm 07/18/2012 [facility] Weight 66.364 07/18/2012 [facility] Weight 66.364 07/18/2012 [facility] Height 167.64 cm 07/18/2012 [facility] Height 170.18 cm 07/17/2012 [facility] Weight 66.364 07/17/2012 [facility] Weight 66.364 07/16/2012 [facility] Height 170.18 cm 07/16/2012 [facility] Diastolic (mm Hg) 73 07/11/2012 [facility] Systolic (mm Hg) 114 07/11/2012 [facility] Respitory Rate 17 07/11/2012 [facility] Heart Rate 101 07/11/2012 [facility] Temperature Oral (F) 97.7 F 07/11/2012 [facility] Diastolic (mm Hg) 82 07/11/2012 [facility] Temperature Oral (F) 97.9 F 07/11/2012 [facility] Respitory Rate 18 07/11/2012 [facility] Systolic (mm Hg) 124 07/11/2012 [facility] Heart Rate 79 07/11/2012 [facility] Diastolic (mm Hg) 73 07/11/2012 [facility] Temperature Oral (F) 97.7 F 07/11/2012 [facility] Respitory Rate 16 07/11/2012 [facility] Systolic (mm Hg) 112 07/11/2012 [facility] Heart Rate 92 07/11/2012 [facility] Height 170.18 cm 07/09/2012 [facility] Weight 66.818 07/09/2012 [facility] Weight 59.091 07/08/2012 [facility] Height 170.18 cm 07/07/2012 [facility] Weight 66.364 07/07/2012 [facility] Height 170.18 cm 05/31/2012 [facility] Weight 65.000 05/31/2012 [facility] Weight 61.818 04/08/2012 [facility] Height 167.64 cm 04/08/2012 [facility] Height 170.18 cm 02/16/2012 [facility] Weight 61.818 02/16/2012 [facility] Height 167.64 cm 01/25/2012 [facility] Weight 62.727 01/25/2012 [facility] Systolic (mm Hg) 110 01/02/2012 [facility] Heart Rate 60 01/02/2012 [facility] Diastolic (mm Hg) 82 01/02/2012 [facility] Respitory Rate 16 01/02/2012 [facility] Systolic (mm Hg) 142 01/02/2012 [facility] Diastolic (mm Hg) 73 01/02/2012 [facility] Respitory Rate 16 01/02/2012 [facility] Diastolic (mm Hg) 77 01/02/2012 [facility] Systolic (mm Hg) 113 01/02/2012 [facility] Respitory Rate 15 01/02/2012 [facility] Heart Rate 54 01/02/2012 [facility] Temperature Oral (F) 97.5 F 01/02/2012 [facility] Heart Rate 65 01/02/2012 [facility] Temperature Oral (F) 95.5 F 01/02/2012 [facility] Temperature Oral (F) 95.4 F 01/02/2012 [facility] Height 170.18 cm 12/31/2011 [facility] Weight 66.818 12/31/2011 [facility] Weight 66.875 12/31/2011 [facility] Weight 63.636 10/16/2011 [facility] Height 167.64 cm 10/16/2011 [facility] Systolic (mm Hg) 95 10/10/2011 [facility] Diastolic (mm Hg) 60 10/10/2011 [facility] Temperature Oral (F) 98.3 F 10/10/2011 [facility] Heart Rate 71 10/10/2011 [facility] Respitory Rate 16 10/10/2011 [facility] Respitory Rate 16 10/10/2011 [facility] Systolic (mm Hg) 109 10/10/2011 [facility] Temperature Oral (F) 97.6 F 10/10/2011 [facility] Heart Rate 52 10/10/2011 [facility] Diastolic (mm Hg) 71 10/10/2011 [facility] Heart Rate 47 10/10/2011 [facility] Respitory Rate 16 10/10/2011 [facility] Temperature Oral (F) 98.4 F 10/10/2011 [facility] Systolic (mm Hg) 104 10/10/2011 [facility] Diastolic (mm Hg) 62 10/10/2011 [facility] Height 170.18 cm 10/09/2011 [facility] Weight 62.727 10/09/2011 [facility] Encounters Location Location Details Encounter Type Encounter Number Reason For Visit Attending Provider ADM Date DC Date Status Source [facility] [id number] JAGDISH RIVERO 10/09/2011 10/10/2011 [facility]charged [facility] [id number] SHAJIGUERO BHATTEL 10/16/2011 10/16/2011 [facility]charged [facility] [id number] ANTONIO HERMINIA 12/30/2011 12/31/2011 [facility]charged [facility] [id number] ENAYET RAHIM 12/31/2011 01/02/2012 [facility]charged [facility] [id number] ASEM SOUMAN 01/24/2012 01/25/2012 [facility]charged [facility] [id number] ASEM SOUMAN 02/16/2012 02/16/2012 Discharged [facility] [place] [id number] 719.45 - JOINT PAIN-PELV TEO CONDON 03/07/2012 03/07/2012 Active [facility] [place] [facility] [id number] RAMSES KOROMA 04/08/2012 04/08/2012 [facility]charged [facility] [id number] ANTONIO BETANCOURT 05/31/2012 05/31/2012 [facility] [id number] ANTONIO BETANCOURT 07/06/2012 07/07/2012 [facility] [id number] ROOSEVELT ALDRICH 07/08/2012 07/08/2012 Discharged [facility] [id number] URINARY RETENTION ENAYET RAHIM 07/10/2012 07/11/2012 [facility] [id number] RAMSES KOROMA 07/15/2012 07/16/2012 [facility]charged [facility] [id number] ENAYET RAHIM 07/17/2012 07/19/2012 [facility]charged [facility] [id number] ABDOMINAL PAIN ENAYET RAHIM 08/07/2012 08/11/2012 Active [facility] Emergency [id number] RENÉE RIOS 09/27/2012 09/28/2012 Active [facility] [id number] OVERDOSE ARI CHURCH 10/19/2012 10/19/2012 Active [facility] [id number] CHRISTION RICE 02/11/2013 02/12/2013 Discharged [facility] Inpatient [id number] ASTHMATIC BRONCHI TIS ENAYET RAHIM 06/06/2013 06/10/[address] [facility] [id number] 41 Antonio Riojas 09/01/2013 09/01/2013 [facility] Inpatient [id number] Enayet Rahim 09/02/2013 09/10/2013 [facility] [id number] 43 Antonio Herminia 09/12/2013 09/13/2013 [facility] Inpatient [id number] Enayet Rahim 09/18/2013 09/24/2013 [facility] [place] [facility] Diag Services [id number] Enayet Rahim 12/05/2013 12/06/2013 [facility] [id number] 44 Antonio Trane 12/07/2013 12/07/2013 [facility] Inpatient [id number] Enayet Rahim 12/12/[address] [facility] [id number] 45 Prasad Roslyn 02/09/2014 02/09/2014 [facility] Inpatient [id number] Morgan Ochoa 09/14/2014 09/30/2014 [facility] [id number] Yanet Sarah 03/21/2015 03/21/2015 [facility] Emergency [id number] Roosevelt Aldrich 03/03/2016 03/03/2016 [facility] Emergency [id number] Yanet Sarah 04/05/2016 04/06/2016 [facility] Observation [id number] Nathalia Verdin 04/12/2016 04/12/2016 [facility] Inpatient [id number] Juan Pablo Garza 04/29/2016 05/11/2016 [facility] Observation [id number] Ezekiel Márquez 07/13/2016 07/13/2016 [facility] Emergency [id number] Wei Liang 08/05/2016 08/05/2016 [facility] OD [id number] 789.00 - ABDMNAL PAIN UN ENAYET RAHIM Cancel [facility] [place] Procedures Procedure Code Date Perfomer Comments Source Biopsy of liver 64262205 05/15/2011 [facility] Gastric bypass operation 82286 011 [facility] Abdominal hysterectomy [id number] 14 [facility] Hernia repair [id number] [facility] Back fusion [id number] [facility] Internal and external hemorrhoidectomy a nd anal fissurectomy [id number] [facility] Cholecystectomy [id number] [facility] Foot joint operations [id number] [facility] Tonsil operation [id number] [facility] Abdominal hysterectomy 6863343 05 [facility] Back fusion [id number] [facility] Cholecystectomy [id number] [facility] Gastric bypass operation 47995 003 [facility] Hernia repair [id number] [facility] Internal and external hemorrhoidectomy a nd anal fissurectomy [id number] [facility] Hysterectomy [id number] [facility] Assessment and Plan Assessment and Plan Date Source Extracted from:Title: Clinical Document Author: Tulio Nguyen MD Date: 05/10/16 Progress Note - Daily [facility] Completed: Apr, 14:41 by Tulio Nguyen MD RM: 138 - 1P, SE C1A LOGAN LEIVA 40y (: 1975) F Attending: Juan Pablo Garza MD Service: Internal Medicine Reason for Admission: ABDOMINAL PAIN Working DRG: Major gastrointestinal disorders and peritoneal infections w CC Code status: None Specified=FULL CODE Current diet: Isolation: None Documented Allergies: Paper Tape, Augmentin, shellfish SUBJECTIVE Preop pain resolved. Sore at incisions OBJECTIVE Abd soft. Mild distension. No peritonitis 24hr Labs 05/10 0405 WBC 10.2 RBC 3.10 L Hgb 9.3 L Hct 28.2 L MCV 90.7 MCH 29.9 MCHC 33.0 RDW 16.4 H Platelet 304 MPV 8.6 Segs 70.1 Monocytes 8.1 Lymphocytes 19.9 L Eosinophils 1.2 Basophils 0.7 Segs-Bands # 7.2 Lymphocytes # 2.0 Monocytes # 0.8 Eosinophils # 0.1 Basophils # 0.1 Cosme still necessary (Yes/No): Line still necessary (Yes/No): Vitals Tmp(F) Pulse BP RR SpO2 FIO2 05/10 12:00 98.5 90 119/71 1 7 97 --- 05/10 09:03 ---- --- ----- 1 6 97 21% 05/10 08:00 98.3 86 104/66 1 7 96 --- 05/10 04:00 98.4 79 119/64 - - 97 --- 05/10 00:00 98.5 81 122/83 - - 97 --- 24 Hr Tmax: 98.5F (36.94c) at 05/10 12:0 0 Vital Signs are the last 5 in the past 48 hours. Date Wt(kg) Wt(lb) Ht(cm) Ht(in) Method 05/05 68.83 151.44 167.64 66.00 Measured 04/30 66.36 146.00 167.64 66.00 Estimated 04/29 (initial) 65.45 144.00 Estimated 04/29 167.64 66.00 Stated I&O Record In Out Bal 05/10 24hr Tot 1 0 1 05/09 24hr Tot 607 5 602 Medications (41) Active Scheduled Meds (16): 04/30/16 chlordiazePOXIDE-clidinium (chl ordiazePOXIDE-clidinium 5 mg-2.5 mg oral capsule (Librax)) 2 cap PO TID-Before Meals 04/30/16 citalopram 40 mg PO Daily 04/30/16 diazepam 10 mg PO Q8H 04/30/16 docusate-senna (Senokot S) 2 ta b PO Bedtime 05/09/16 enoxaparin 30 mg SUB-Q [id number] 04/30/16 fentaNYL 1 patch TOP Q72H 04/30/16 folic acid 2 mg PO Daily 04/30/16 gabapentin (gabapentin 100 mg o ral capsule) 100 mg PO Q8H 05/07/16 methylnaltrexone (Relistor) 12 mg SUB-Q Daily 04/30/16 mirtazapine 7.5 mg PO Bedtime 04/30/16 multivitamin, (Prenata l Multivitamins with Folic Acid 0.8 mg oral tablet) 1 tab PO Daily 04/30/16 nitrofurantoin (Macrobid) 100 m g PO BID 04/30/16 pantoprazole 40 mg PO BID 05/07/16 polyethylene glycol 3350 (Krissy ax) 17 gm PO BID 05/03/16 propranolol 40 mg PO Daily 04/30/16 riFAXimin (Xifaxan) 550 mg PO B ID Unscheduled Meds: None PRN Meds (12): 04/30/16 acetaminophen 650 mg PO Q4H 04/30/16 dicyclomine 20 mg PO TID 05/06/16 hydromorphone (Dilaudid) 1 mg I TURN DOWN MAN Q6H 04/30/16 nitroglycerin (nitroglycerin 0. 4 mg sublingual tablet) 0.4 mg SL Q5Min 04/30/16 non-formulary (pt own buprenorp chadwick (Belbuca)) 150 microgram BUC TID 04/30/16 ondansetron 4 mg IVP Q6H 04/30/16 ondansetron 8 mg PO Q8H 04/30/16 promethazine 50 mg PO Q6H 04/30/16 scopolamine (scopolamine 1.5 mg transdermal film) 1 patch TOP Q72H 04/30/16 sodium chloride (Saline Flush 0 .9%) 10 ml IVP PRN 04/30/16 temazepam 30 [...] 1,000 mL 1,000 mL 40 ml/hr ASSESSMENT and EXAM PLAN and TREATMENT Pt is cleared to dc home on surgery standpoint, follow up in 2 weeks. DIAGNOSES and PROBLEMS Ready for Discharge (Yes/No)? TEACHING ATTESTATION 05/11/2016 NERI Porter Extracted from:Title: Clinical Document Author: Nathalia Verdin MD Date: 04/12/16 Daily Progress Note SUBJECTIVE ABD PAIN / NAUSEA/ VOMITTING NO FEVER NO BLOOD IN STOOL OBJECTIVE Vitals Tmp(F) Pulse BP RR SpO2 FIO2 04/12 13:09 ---- 101 148/106 17 --- --- 04/12 12:23 98.0 68 106/57 1 8 97 --- 04/12 09:05 ---- --- 104/72 -- 99 --- 04/12 08:39 ---- --- 95/66 - - 100 --- 04/12 06:29 ---- 72 109/75 1 4 100 --- 24 Hr Tmax: 98.4F (36.89c) at 04/11 21:2 1 Vital Signs are the last 5 in the past 48 hours. PHYSICAL EXAM GENERAL ALERT ,NOT IN ACUTE DISTTRESS HEENT PERRL , EOMI NO PALLOR NO ICTERUS NECK NO JVD , NO BRUIT HEART S1 S2 REGULAR , NO MURMUR CHEST CTA ABDOMEN SOFT , NO PALPABLE MASS , BS ACTIVE EXTREMITIES NO EDEMA /CYANOSIS NEUROLOGICAL : NONFOCAL Labs (Last four charted values) WBC 7.1 (APR 11) Hgb L 10.1 (APR 11) Hct L 30.8 (APR 11) Plt 381 (APR 11) Na 137 (APR 11) K 4.0 (APR 11) CO2 27 (APR 11) Cl 101 (APR 11) Cr 0.82 (APR 11) BUN 17 (APR 11) Glucose Random 96 (APR 11) Ca 8.8 (APR 11) PT 12.7 (APR 11) INR 0.93 (APR 11) PTT 23.9 (APR 11) IMAGING MEDICATIONS Scheduled Meds: None PRN Meds (4): 04/12/16 acetaminophen 650 mg PO Q4H 04/12/16 hydromorphone (Dilaudid) 0.5 mg IV Q4H 04/11/16 sodium chloride (Saline Flush 0 .9%) 10 mL IVP PRN 04/12/16 sodium chloride (Saline Flush 0 .9%) 10 ml IVP PRN ASSESSMENT AND PLAN DEHYDRATION ABDPAIN/ N/V - RECURRENT CROHN'S DISEASE BY HISTORY ANEMIA H/O GASTRIC BYPASS LUMBAR SPONDYLOSIS ANXIETY DEPRESSION HYDRATION CONTINUE HOME MEDS FOLLOW GI RECOMMENDATIONS 04/12/2016 [facility] Extracted from:Title: Clinical Document Author: Nato Covarrubias MD Date: 09/29/14 [facility] Daily Progress Note [facility] Nato Covarrubias MD SUBJECTIVE: pt seen and [...] except as listed. OBJECTIVE: Vitals and Temp: Vitals Tmp(F) Pulse BP RR SpO2 FIO2 09/29 16:14 97.5 80 110/71 1 6 --- --- 09/29 12:33 97.5 81 113/73 1 6 --- --- 09/29 08:36 97.4 69 107/73 1 6 --- --- 09/29 04:40 98 69 127/85 17 --- --- 09/29 00:40 97.5 72 134/87 1 6 --- --- 24 Hr Tmax: 98F (36.67c) at 09/29 04:40 Vital Signs are the last 5 in the past 48 hours. Labs (Last four charted values) WBC 3.8 (SEPTEMBER 23) 4.1 (SEPTEMBER 19) 4.2 (SEPTEMBER 16) 4.1 (SEPTEMBER 15) Hgb 12.0 (SEPTEMBER 23) L 11.0 (SEPTEMBER 19) L 11.1 (SEPTEMBER 16) L 11.9 (SEPTEMBER 15) Hct 36.0 (SEPTEMBER 23) L 32.8 (SEPTEMBER 19) L 32.9 (SEPTEMBER 16) L 35.2 (SEPTEMBER 15) Plt 215 (SEPTEMBER 23) 174 (SEPTEMBER 19) 185 (SEPTEMBER 16) 202 (SEPTEMBER 15) Na 143 (SEPTEMBER 26) 144 (SEPTEMBER 23) 144 (SEPTEMBER 19) 144 (SEPTEMBER 18) K 3.5 (SEPTEMBER 26) 4.1 (SEPTEMBER 23) 3.6 (SEPTEMBER 19) 3.9 (SEPTEMBER 18) CO2 27 (SEPTEMBER 26) 29 (SEPTEMBER 23) 24 (SEPTEMBER 19) L 22 (SEPTEMBER 18) Cl 107 (SEPTEMBER 26) 107 (SEPTEMBER 23) H 111 (SEPTEMBER 19) H 113 (SEPTEMBER 18) Cr 0.7 (SEPTEMBER 26) 0.8 (SEPTEMBER 23) 0.8 (SEPTEMBER 19) 0.8 (SEPTEMBER 18) BUN L 6 (SEPTEMBER 26) L 4 (SEPTEMBER 23) L 3 (SEPTEMBER 19) L 4 (SEPTEMBER 18) Glucose Random 82 (SEPTEMBER 26) L 62 (SEPTEMBER 23) 97 (SEPTEMBER 19) H 106 (SEPTEMBER 18) Mg 1.8 (SEPTEMBER 14) 1.9 (SEPTEMBER 13) Phos 3.9 (SEPTEMBER 14) 3.0 (SEPTEMBER 13) Ca L 7.9 (SEPTEMBER 26) L 8.3 (SEPTEMBER 23) L 8.0 (SEPTEMBER 19) L 7.8 (SEPTEMBER 18) PT 14.2 (SEPTEMBER 14) 12.9 (SEPTEMBER 13) INR 1.09 (SEPTEMBER 14) 0.97 (SEPTEMBER 13) PTT 31.6 (SEPTEMBER 14) 33.0 (SEPTEMBER 13) Total CK 113 (SEPTEMBER 13) ASSESSMENT and EXAM: General: in no apparent distress at [...] Oriented X 3. No motor deficit. DIAGNOSES and PROBLEMS: 1. Elevated liver function tests. 2. abdominal pain and nausea 3. Mayelin-en-Y gastric bypass surgery. 4. Normocytic anemia 5. Spinal fusion. 6. cholelithiasis status post cholecyst ectomy 7. Depression. PLAN and TREATMENT: Continue PPI regular diet. Monitor BG pt is accepted at [facility] await transfer MEDICATIONS Scheduled Meds [...] 5% with 0.45% NaCl IV 1,000 mL 09/30/2014 [facility] Extracted from:Title: Clinical Document Author: Rafa Garcia MD Date: 12/16/13 GASTROENTEROLOGY FOLLOW-UP NOTE Ju Garcia M.D. [facility] SUBJECTIVE: No acute events reported overnight. Complains of bloating and diffuse abdominal discomfort. Has been having a BM everyday but it has been small, and she feels constipated. Mild nausea, no vomiting. States that her headaches are now improving, and she is not using much pain medicine today. OBJECTIVE: Vitals and Temp: Vitals Tmp(F) Pulse BP RR SpO2 FIO2 12/16 16:00 97.7 89 115/68 1 8 --- --- 12/16 12:00 98.3 103 115/73 18 --- --- 12/16 08:45 97.6 71 124/83 2 0 --- --- 12/16 04:00 97.9 76 123/71 1 7 --- --- 12/15 20:00 97.7 90 118/76 1 7 --- --- 24 Hr Tmax: 98.3F (36.83c) at 12/16 12:0 0 Vital Signs are the last 5 in the past 48 hours. Input/Output Record In Out Bal 12/16 24hr Tot 104 0 104 12/15 24hr Tot 1395 0 1395 Physical Exam: Gen: lying in bed, no acute distress HEENT: anicteric, atraumatic CVS: regular rate and rythm, S1+S2 Resp: clear to auscultation bilaterally, no wheezing Abd: mild tenderness in RUQ and RLQ, non-distended, soft Ext: pulses +, no edema Neuro: A&O x 3 Psych: anxious Labs (Last four charted values) WBC 4.2 (DEC 16) L 3.2 (DEC 15) 5.0 (DEC 14) 4.5 (DEC 13) Hgb L 11.1 (DEC 16) L 11.7 (DEC 15) L 11.9 (DEC 14) L 10.0 (DEC 13) Hct L 33.6 (DEC 16) L 35.0 (DEC 15) 36.4 (DEC 14) L 30.4 (DEC 13) Plt 233 (DEC 16) 208 (DEC 15) 219 (DEC 14) 191 (DEC 13) Na 139 (DEC 16) 140 (DEC 15) 141 (DEC 13) 139 (DEC 12) K H 5.9 (DEC 16) H 5.2 (DEC 15) 4.6 (DEC 13) 4.0 (DEC 12) CO2 30 (DEC 16) 30 (DEC 15) 27 (DEC 13) 24 (DEC 12) Cl 107 (DEC 16) 104 (DEC 15) 107 (DEC 13) 108 (DEC 12) Cr 0.8 (DEC 16) 0.8 (DEC 15) 0.7 (DEC 13) 0.8 (DEC 12) BUN 11 (DEC 16) 13 (DEC 15) 11 (DEC 13) 13 (DEC 12) Glucose Random 93 (DEC 16) 77 (DEC 15) 82 (DEC 13) H 207 (DEC 12) Mg 1.9 (DEC 10) Ca 9.5 (DEC 16) 9.2 (DEC 15) L 8.2 (DEC 13) 9.0 (DEC 12) PT 12.6 (DEC 12) INR 0.95 (DEC 12) Medications: Scheduled Meds (7):citalopram (CeleXA), diazepam, [...] Time Meds: None Continuous Infusions: None ASSESSMENT and PLAN: 1. Nausea and vomiting: improved. 2. Acute migraine headache: improved. 3. Elevated liver function tests: decre asing. 4. Normocytic anemia of unknown etiolog y. 5. History of gastric bypass surgery. 6. [...] No overt GI bleeding reported. S/p EGD and Colonoscopy earlier this year. Iron levels and folate are OK. B12 is at the lower end of normal (patient reports that she has been [id number] in the past). B12 supplementation per primary team. Elevated LFTs: elevated but stable. Has had detailed work-up within the last 6 months. Will need outpatient follow-up and possibly a Hepatology evaluation in the [facility]. We will follow the patient with you. Please call us with any questions. Ju Garcia M.D. [facility] 2013 [facility] Extracted from:Title: Clinical Document Author: Chitra Collins MD Date: 09/23/13 Progress Note - Daily Gastroenterology [facility] SUBJECTIVE: pt with post-surgical discomfort as expected, passing gas, no stools, overall better with no residual of the initial pain OBJECTIVE: Vitals Signs (last 24 hrs) Last Charted Minimum Maximum Temp 98.1 (SEPTEMBER 23:) 98.0 (SEPTEMBER 22 20:40) 98.0 (SEPTEMBER 22 20:40) Heart Rate 94 (SEPTEMBER 23:) 88 (SEPTEMBER 22 20:40) H 102 (SEPTEMBER 23 04:42) Resp Rate 18 (SEPTEMBER 23:13) 16 (SEPTEMBER 22 20:40) 18 (SEPTEMBER 23 07:54) SBP 103 (SEPTEMBER 23:) 96 (SEPTEMBER 22 20:40) 121 (SEPTEMBER 23 07:54) DBP 66 (SEPTEMBER 23:) L 58 (SEPTEMBER 22 20:40) 75 (SEPTEMBER 23 07:54) Input/Output Record In Out Bal 09/23 24hr Tot 806 0 806 09/22 24hr Tot 2109 1700 409 Physical Examination: General: [...] IV (Dextrose 50% Syringe), LORazepam (Ativan), acetaminophen-hydrocodone (Republic 5/325 oral tablet), acetaminophen, docusate, hydrOXYzine, hydromorphone (Dilaudid), polyethylene glycol 3350 (MiraLax), promethazine (Phenergan), promethazine (Phenergan), sodium chloride (Saline Flush 0.9%) One Time Meds: None Continuous Infusions: None Labs (Last four charted values) WBC 5.8 (SEPTEMBER 18) Hgb 12.2 (SEPTEMBER 18) Hct L 35.9 (SEPTEMBER 18) Plt 300 (SEPTEMBER 18) Na 136 (SEPTEMBER 18) K 3.5 (SEPTEMBER 18) CO2 25 (SEPTEMBER 18) Cl 102 (SEPTEMBER 18) Cr 0.7 (SEPTEMBER 18) BUN 12 (SEPTEMBER 18) Glucose Random 90 (SEPTEMBER 18) Mg 1.9 (SEPTEMBER 18) Ca 8.9 (SEPTEMBER 18) ASSESSMENT: Abd pain s/p Mayelin-en-y gastric bypass abnormal LFT PLAN: - diet as tolerated - will maximize medical management in ca se there is gastritis or ulcer in gastric [...] contact me with any questions or concerns. 09/24/2013 [facility] Extracted from:Title: Clinical Document Author: Corey Bolaños MD Date: 09/10/13 Progress Daily [facility] Completed: Aug, 05:35 by Corey Bolaños MD RM: 429 - 1P, SE C4B LOGAN LEIVA 37y (: 1975) F Attending: Corey Bolaños MD Service: Internal Medicine Reason for Admission: INTRACTABLE VOMITING, ELEVATED LIVER ENZYMES Working DRG: Esophagitis, gastroent and misc digest disorders w/o [facility] Code status: None Specified=FULL CODE Current diet: Isolation: None Documented Allergies: Food MSG, Paper Tape, Augmentin, shellfish, aspirin, iodine, Imitrex SUBJECTIVE eating this morning/ long discussion/ reveiwed consultants' notes with the patients OBJECTIVE ASSESSMENT and EXAM PLAN and TREATMENT DIAGNOSES and PROBLEMS Ready for Discharge (Yes/No)? Cosme still necessary (Yes/No): Line still necessary (Yes/No): 24hr Labs 09/09 2246 Glucose POC 120 H 09/09 1726 Glucose POC 140 H 09/09 1201 Glucose POC 161 H 09/09 1059 Glucose POC 31 C 09/09 0621 Glucose POC 94 Vitals Tmp(F) Pulse BP RR SpO2 FIO2 09/10 04:12 97.9 92 114/66 1 6 --- --- 09/10 00:25 98.2 75 103/61 1 8 --- --- 09/09 20:00 98.2 92 134/82 1 6 --- --- 09/09 17:38 98.5 89 102/62 1 8 --- --- 09/09 12:05 98.0 101 92/52 1 8 --- --- 24 Hr Tmax: 98.5F (36.94c) at 09/09 17:3 8 Vital Signs are the last 5 in the past 48 hours. Date Wt(kg) Wt(lb) Ht(cm) Ht(in) Method 09/01 (initial) 67.27 148.00 167.64 66.00 Stated I&O Record In Out Bal 09/09 24hr Tot 2679 500 2179 09/08 24hr Tot 313 0 313 Medications (27) Active Scheduled Meds (12): 09/02/13 citalopram (CeleXA) 40 mg PO QA M 09/02/13 diazepam 10 mg PO Q6H 09/02/13 hydrOXYzine 25 mg PO Bedtime 09/05/13 hydrocortisone topical (Anusol- HC 25 mg rectal suppository) 1 appl MN BID 09/08/13 metoclopramide (Reglan 10 mg or al tablet) 10 mg PO Before Meals and Bedtime 09/05/13 metroNIDAZOLE (metroNIDAZOLE 50 0 mg oral tablet) 500 mg PO ABXQ8H 09/02/13 multivitamin with minerals 1 ta b PO Daily 09/06/13 pantoprazole (Protonix) 40 mg P O Daily 09/09/13 (Suspended) potassium chloride (potassium chloride 20 mEq oral tablet, extended release) 20 mEq PO Daily 09/09/13 thiamine 100 mg PO Daily 09/05/13 ursodiol (Actigall) 300 mg PO Q 12H 09/02/13 zolpidem (Ambien) 10 mg PO Bedt anastacia Unscheduled Meds: None PRN Meds (14): 09/02/13 acetaminophen-hydrocodone (acet aminophen-hydrocodone 325 mg-5 mg oral tablet) 1 tab PO Q4H 09/02/13 acetaminophen-hydrocodone (acet aminophen-hydrocodone 325 mg-10 mg oral tablet) 1 tab PO Q4H 09/02/13 acetaminophen 650 mg PO Q4H 09/02/13 chlordiazePOXIDE (chlordiazePOX STACY 25 mg oral capsule) 25 mg PO QID 09/02/13 diphenhydrAMINE (Benadryl) 25 m g IV Q4H 09/02/13 docusate 100 mg PO BID 09/02/13 hydromorphone (Dilaudid) 1 mg I V Q4H 09/02/13 hyoscyamine 0.125 mg SL Q6H 09/09/13 ondansetron (Zofran) 4 mg PO TI D 09/03/13 polyethylene glycol 3350 (Krissy ax) 17 gm PO BID 09/02/13 promethazine + Sodium Chloride 0.9% IV 50 mL (Phenergan + Sodium Chloride 0.9% IV 50 mL) 12.5 mg IVPB Q4H 151.5 ml/hr 09/07/13 promethazine (Phenergan) 12.5 m g MN Q4H 09/09/13 promethazine (Phenergan) 25 mg MN Q4H 09/02/13 sodium chloride (Saline Flush 0 .9%) 5 ml IVP PRN One Time Meds: None Continuous Infusions (1): 09/04/13 Dextrose 5% with 0.9% NaCl IV 1 ,000 mL (D5NS 1,000 mL) 1,000 mL 125 ml/hr 09/10/2013 [facility] Plan of Care No Data Provided for This Section Social History Social History Date Source Social History TypeResponse Alcohol Last use: none. Previous treatment: None. Smoking Status Current every day smoker; Type: Cigarettes; Tobacco use per day: 3; Exposure to Tobacco Smoke None; Cigarette Smoking Last 365 Days Yes; Reg Smoking Cessation Counseling No 09/03/2013 [facility] Social History TypeResponse Alcohol Previous treatment: None Smoking Status Former smoker, Type: Cigarettes, Exposure to Tobacco Smoke None, Cigarette Smoking Last 365 Days No, Reg Smoking Cessation Counseling No 09/03/2013 [facility] Family History No Data Provided for This Section Advance Directives No Data Provided for This Section Functional Status No Data Provided for This Section
--- OUTSIDE RECORDS SUMMARY | 2019-10-09 08:07 | XMS REPORT ---
Author Author [facility] t Organization [facility] t Address [address] [facility] [place] [address] Phone Unavailable Care Team Providers Care Office Support Assistant Name Role Phone NONSTAFF PCP Unavailable SIMA LINARES Attphys Unavailable BRENNAN SOUSA Attphys Unavailable Trey CAMPOS Attphys Unavailable Jt Liang Attphys Kojo Márquez Attphys Carri Garza Attphys Irvin Verdin Attphys Yelena Smith Attphys Sergo Stallworth Attphys Morgan Ochoa Attphys Prasad Mcgowan Attphys Corey Bolñaos Attphys Deni Riojas Attphys Morgan Hope Attphys Kojo Márquez Admphys Carri Garza Admphys Irvin Verdin Opallu Admphys Morgan Ochoa Admphys Corey Bolaños Admphys Payers Payer Name Policy Type Policy Number Effective Date Expiration Date Lester sevilla [employer] [id number] 2019 00:00:00 [facility] [employer] [id number] 2018 00:00:00 [facility] [employer] [id number] 2018 00:00:00 [facility] [employer] [id number] 2016 00:00:00 [facility] [employer] [id number] 2016 00:00:00 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 Disease Active 2016-09-23 00:00:00 Juan Carlos Woodall Contusion of left wrist Contusion of left wrist Disease Active 2016-09-23 00:00:[address] Left wrist pain Left wrist pain Disease Active 2016-09-23 00:00:00 Juan Carlos Woodall Left hand pain Left hand pain Disease Active 2016-09-23 00:00:00 Juan Carlos Woodall ALLERGIC REACTION CARL RGIC REACTION Active 08/05/2016 [facility] Diagnosis Active 2016-08-05 00:00:00 2016-08-05 04:01:00 [facility] FEVER FEVE R Active 07/13/2016 [facility] Diagnosis Active 2016-07-13 00:00:00 2016-07-13 10:22:00 [facility] DIVERTICULITIS DIVE RTICULITIS Active 07/13/2016 [facility] Diagnosis Active 2016-07-13 00:00:00 2016-08-05 16:05:00 [facility] ABD PAIN ABD PAIN Active 04/29/2016 [facility] Active 2016-04-29 00:00:00 2016-04-29 18:31:00 [facility] ABDOMINAL PAIN ABDO MARIE PAIN Active 04/29/2016 [facility] Diagnosis Active 2016-04-29 00:00:00 2016-05-03 10:33:00 [facility] INTRACTABOLE ABDOMINAL PAIN IN TRACTABOLE ABDOMINAL PAIN Active 04/11/2016 [facility] Diagnosis Active 2016-04-11 00:00:00 2016-04-12 13:07:00 [facility] SIDE PAIN SIDE PAIN Active 04/11/2016 [facility] Diagnosis Active 2016-04-11 00:00:00 2016-04-12 01:03:[address] [facility] [address] SCAN, DR SENT CT S CAN, DR SENT Active 04/05/2016 [facility] Diagnosis Active 2016-04-05 00:00:00 2016-05-25 09:18:00 [facility] DOC SEND DOC SEND Active 03/02/2016 [facility] Diagnosis Active 2016-03-02 00:00:00 2016-04-26 14:30:00 [facility] ARM INJURY ARM INJURY Active 03/20/2015 [facility] Diagnosis Active 2015-03-20 00:00:00 2015-03-20 21:29:00 [facility] INTRACTABLE NAUSEA AND VOMITING INTRACTABLE NAUSEA AND VOMITING Active 09/13/2014 [facility] Diagnosis Active 2014-09-13 00:0 0:00 2014-09-22 14:10:00 [facility] FOOT PAIN FOOT PAIN Active 02/09/2014 [facility] Diagnosis Active 2014-02-09 00:00:00 2014-02-09 10:47:00 [facility] VOMITING,NAUSEA VOMI TING,NAUSEA Active 12/10/2013 [facility] Diagnosis Active 2013-12-10 00:00:00 2013-12-11 08:45:00 [facility] NAUSEA AND VOMITING NAUS EA AND VOMITING Active 12/10/2013 [facility] Diagnosis Active 2013-12-10 00:00:00 2013-12-20 22:03:[address] [facility] [address] SENT DR Lester ARIAS Active 12/06/2013 [facility] Diagnosis Active 2013-12-06 00:00:00 2013-12-06 23:55:00 [facility] VOMITING VOMI TING Active 09/01/2013 [facility] Diagnosis Active 2013-09-01 00:00:00 2013-09-02 01:08:00 [facility] INTRACTABLE VOMITING, ELEVATED LIVER ENZ INTRACTABLE VOMITING, ELEVATED LIVER ENZ Active 09/01/2013 [facility] Diagnosis A ctive 2013-09-01 00:00:00 2013-09-05 13:40:00 [facility] VOMITING/ABD PAIN/SWELLING ABD VOMITING/ABD PAIN/SWELLING ABD Active 08/31/2013 [facility] Diagnosis Ac tive 2013-08-31 12:00:00 2013-09-01 00:59:00 [facility] BLOATING/GASTRIC PAIN/NAUSEA/PIPER/VOMITING BLOATING/GASTRIC PAIN/NAUSEA/PIPER/VOMITING Active 08/29/2013 [facility] Active 2013-08-29 00:00:00 2013-10-03 15:33:00 [facility] SOB SOB Active 06/05/2013 [facility] Diagnosis Active 2013-06-05 00:00:00 2013-06-05 13:29:00 [facility] ASTHMATIC BRONCHITIS ASTH MATIC BRONCHITIS Active 06/05/2013 [facility] Diagnosis Active 2013-06-05 00:00:00 2013-06-19 13:07:00 [facility] CHEST AND ARM COMPLAINTS CHES T AND ARM COMPLAINTS Active 02/11/2013 [facility] Diagnosis Active 2013-02-11 20:00:00 2013-02-11 22:43:00 [facility] OVERDOSE OVER DOSE Active 10/19/2012 [facility] Diagnosis Active 2012-10-19 00:00:00 2013-02-11 22:40:00 [facility] SEIZURES SEIZ URES Active 09/27/2012 [facility] Diagnosis Active 2012-09-27 00:00:00 2012-09-28 14:55:00 [facility] RENAL COLIC, ABDOMINAL PAIN, DEHYDRATION RENAL COLIC, ABDOMINAL PAIN, DEHYDRATION Active 08/06/2012 [facility] Diagnosis Ac tive 2012-08-06 14:01:00 2012-08-06 15:24:00 [facility] SEIZURE SEIZ URE Active 07/17/2012 [facility] Diagnosis Active 2012-07-17 13:45:00 2012-07-18 12:59:00 [facility] URINARY RETENTION URIN WALTER RETENTION Active 07/09/2012 [facility] Diagnosis Active 2012-07-09 00:00:00 2012-07-17 21:43:00 [facility] BACK PAIN BACK PAIN Active 07/07/2012 [facility] Diagnosis Active 2012-07-07 00:00:00 2012-07-08 02:35:00 [facility] 789.00 - ABDMNAL PAIN UN 789. 00 - ABDMNAL PAIN UN Active 06/29/2012 [facility] Diagnosis Active 2012-06-29 00:01:00 2012-09-17 18:44:00 OPIEddie SantiagoCossayuna FALL FALL Active 05/31/2012 [facility] Active 2012-05-31 07:00:00 2012-05-31 08:10:00 [facility] 719.45 - JOINT PAIN-PELV 719. 45 - JOINT PAIN-PELV Active 03/06/2012 [facility] Diagnosis Active 2012-03-06 00:01:00 2012-03-13 13:09:00 [facility] ALLERGIC REATION CARL RGIC REATION Active 01/24/2012 [facility] Diagnosis Active 2012-01-24 08:00:00 2012-01-24 23:27:00 [facility] GI BLEED GI B LEED Active 12/31/2011 [facility] Diagnosis Active 2011-12-31 00:00:00 2012-01-02 10:36:00 [facility] HEADACHE HEAD ACHE Active 12/31/2011 [facility] Diagnosis Active 2011-12-31 00:00:00 2011-12-31 21:03:00 [facility] RECTAL BLEED, NO BOWEL MOVEMENT X 5DAYS RECTAL BLEED, NO BOWEL MOVEMENT X 5DAYS Active 12/30/2011 [facility] Diagnosis Ac tive 2011-12-30 00:00:00 2011-12-30 23:38:00 [facility] SYNCOPE SYNC OPE Active 10/14/2011 [facility] Diagnosis Active 2011-10-14 08:00:00 2011-10-16 03:04:00 [facility] LOWER BACK PAIN LOWE R BACK PAIN Active 10/08/2011 [facility] Diagnosis Active 2011-10-08 08:00:00 2011-10-09 03:50:00 [facility] SYNCOPE, ANEMIA, HYPERNATREMIA SYNCOPE, ANEMIA, HYPERNATREMIA Active 10/08/2011 [facility] Diagnosis Active 2011-10-08 08:00:00 2011-10-09 13:27:00 [facility] Abdominal pain Abdominal pain Problem Active [facility] Failure of outpatient treatment Failure of outpatient treatment Pro blem Active [facility] Urinary tract infection UTI (urinary tract infection) Problem Active [facility] Vomiting Vomiting Problem Active [facility] Abdominal pain Abdo marie pain Active Problem 02/14/2013 [facility], MICHAEL Dunn, [facility] Problem Active 2013-02-14 21:34:[address] [facility], MICHAEL Dunn, [facility] Anxiety Anxi ety Active Problem 02/14/2013 [facility], MICHAEL Dunn, [facility] Problem Active 2013-02-14 21:34:34 [facility], MICHAEL Dunn, [facility] Cancer of cervix Canc er of cervix Active Problem 02/14/2013 [facility], MICHAEL Dunn, [facility] Problem Active 2013-02-14 21:34:34 [facility], MICHAEL Dunn, [facility] Depression Depr ession Active Problem 02/14/2013 [facility], MICHAEL Dunn, [facility] Problem Active 2013-02-14 21:34:[address] [facility], MICHAEL Dunn, [facility] Female genital organ symptoms Female genital organ symptoms Active Problem 02/14/2013 2CANCELLED [facility], MICHAEL Dunn, [facility] Problem Active 2013-02-14 21:34:34 [facility], MICHAEL Dnun, [facility] Gastric bypass operation Lucas cecy bypass operation Active Problem 02/14/2013 [facility], MICHAEL Dunn, [facility] Problem Active 2013-02-14 21:34:34 [facility], MICHAEL Dunn, [facility] Laparoscopic procedure [place] roscopic procedure Active Problem 02/14/2013 [facility], MICHAEL Dunn, [facility] Problem Active 2013-02-14 21:34:34 [facility], MICHAEL Dunn, [facility] Lumbar puncture headache Lumb ar puncture headache Active Problem 10/18/2011 [facility] Problem Active 2011-10-18 08:21:1 3 [facility] Lysis of adhesions Lysi s of adhesions Active Problem 02/14/2013 [facility], MICHAEL Dunn, [facility] Problem Active 2013-02-14 21:34:34 [facility], MICHAEL Dunn, [facility] Migraine Migr chito Active Problem 02/14/2013 [facility], MICHAEL Dunn, [facility] Problem Active 2013-02-14 21:34:34 [facility], MICHAEL Dunn, [facility] Sinusitis Sinu sitis Active Problem 02/14/2013 [facility], MICHAEL Dunn, [facility] Problem Active 2013-02-14 21:34:[address] [facility], MICHAEL Dunn, [facility] Ulcer Ulce r Active Problem 02/14/2013 [facility], MICHAEL Dunn, [facility] Problem Active 2013-02-14 21:34:34 [facility], MICHAEL Dunn, [facility] Lumbar puncture headache Lumb ar puncture headache Active Problem 02/14/2013 [facility], MICHAEL Dunn, [facility] Problem Active 2013-02-14 21:34:34 [facility], MICHAEL Dunn, [facility] Kidney infection Kidn ey infection Resolved Problem 02/14/2013 [facility], [facility] Problem Resolved 2013-02-14 21:34:[address] [facility], [facility] Malabsorption Le bsorption Resolved Problem 02/14/2013 [facility], [facility] Problem Resolved 2013-02-14 21:34:[address] [facility], [facility] Cancer Canc er Resolved Problem 02/14/2013 1cervical [facility], [facility] Problem Resolved 2013-02-14 21:34: 34 [facility], [facility] Anxiety (finding) Anxi ety (finding) Active Problem 08/08/2016 MICHAEL Lucas [facility] Problem Active 2016-08-08 03:04:37 MICHAEL Lucas, [facility] bipolar(Confirmed) bipo lar(Confirmed) Resolved Problem 02/11/2014 MICHAEL Lucas, [facility] Problem Resolved 2014-02-11 22:54:35 MICHAEL Lucas, [facility] Malignant neoplasm, primary (morphologic abnormality) Malignant neoplasm, primary (morphologic abnormality) Resolved Problem 03/05/2016 cervical MICHAEL Lucas, [facility] Problem Resolved 2016-03-05 04:12:17 MICHAEL Lucas, [facility] Malignant tumor of cervix (disorder) Malignant tumor of cervix (disorder) Active Problem 08/08/2016 [facility] Problem Active 2016-08-08 03:04:37 OP ID Lance [facility] Depressive disorder (disorder) Depressive disorder (disorder) Active Problem 08/08/2016 [facility] Active 2016-08-08 03:04:37 MICHAEL Lucas [facility] Female genital organ symptoms (finding) Female genital organ symptoms (finding) Active Problem 08/08/2016 [facility] Problem Active 2016-08-08 03:04:37 O PID Lance [facility] Esophagogastrostomy, antesternal or antethoracic (proc edure) Esophagogastrostomy, antesternal or antethoracic (procedure) Active Problem 08/08/2016 NERI [facility] Active 2016-08-08 03:04:37 MICHAEL Lucas [facility] high cholesterol(Confirmed) hi gh cholesterol(Confirmed) Resolved Problem 02/11/2014 [facility]olved 2014-02-11 22:54:35 MICHAEL Lucas [facility] hx cerv cancer(Confirmed) hx c erv cancer(Confirmed) Resolved Problem 02/11/2014 [facility]olved 2014-02-11 22:54:35 MICHAEL Lucas [facility] hx gastric bypass(Confirmed) h x gastric bypass(Confirmed) Resolved Problem 02/11/2014 [facility] Resolved 2014-02-11 22:54:35 MICHAEL uLcas [facility] hypoglycemia(Confirmed) hypo glycemia(Confirmed) Resolved Problem 02/11/2014 [facility] Resolved 2014-02-11 22:54:35 MICHAEL Lucas [facility] Infectious disorder of kidney (disorder) Infectious disorder of kidney (disorder) Resolved Problem 08/08/2016 [facility] Resolved 2016-08-08 03:04:37 MICHAEL Lucas [facility] Laparoscopic-assisted procedure (procedure) Laparoscopic-assisted procedure (procedure) Active Problem 08/08/2016 MICHAEL Lucas [facility] Problem Active 2016-08-08 03:04:3 7 MICHAEL Lucas [facility] Lumbar Fusion L3 S1(Confirmed) Lumbar Fusion L3 S1(Confirmed) Resolved Problem 02/11/2014 [facility] Resolved 2014-02-11 22:54:35 OP ID Cossayuna [facility] lumbar fusion surgery(Confirmed) lumbar fusion surgery(Confirmed) Resolved Problem 02/11/2014 [facility] Resolved 2014-02-11 22:54:35 CHANTALEddie Lucas [facility] Headache following lumbar puncture (disorder) Headache following lumbar puncture (disorder) Active Problem 08/08/2016 CHANTALEddie Tovarbeverly [facility] Problem Active 2016-08-08 03:04:37 MICHAEL Lucas [facility] Lysis of adhesions (procedure) Lysis of adhesions (procedure) Active Problem 08/08/2016 [facility] Active 2016-08-08 03:04:37 OP ID Lance, [facility] Malabsorption syndrome (disorder) Malabsorption syndrome (disorder) Resolved Problem 08/08/2016 [facility] Resolved 2016-08-08 03:04:37 OP ID Cossayuna, [facility] Migraine (disorder) Migr chito (disorder) Active Problem 08/08/2016 [facility] Active 2016-08-08 03:04:37 MICHAEL Lucas [facility] Sinusitis (disorder) Sinu sitis (disorder) Active Problem 08/08/2016 MICHAEL Lucas, [facility] Problem Active 2016-08-08 03:04:37 MICHAEL Lucas [facility] Ulcer (morphologic abnormality) Ulcer (morphologic abnormality) Active Problem 03/05/2016 [facility] Problem Active 2016-03-05 04:12:17 OP ID Cossayuna, [facility] Biopsy of liver (procedure) Bi opsy of liver (procedure) Active Problem 08/08/2016 MICHAEL Lucas [facility] Problem Active 2016-08-08 03:04:37 MICHAEL Lucas [facility] bipolar bipo lar Resolved Problem 06/12/2013 [facility] Problem Resolved 2013-06-12 22:04:00 [facility] high cholesterol high cholesterol Resolved Problem 06/12/2013 [facility] Problem Resolved 2013-06-12 22:04:00 [facility] hx cerv cancer hx c erv cancer Resolved Problem 06/12/2013 [facility] Problem Resolved 2013-06-12 22:04:00 [facility] hx gastric bypass hx g astric bypass Resolved Problem 06/12/2013 [facility] Problem Resolved 2013-06-12 22:04:00 [facility] hypoglycemia hypo glycemia Resolved Problem 06/12/2013 [facility] Problem Resolved 2013-06-12 22:04:00 [facility] Lumbar Fusion L3 S1 Lumb ar Fusion L3 S1 Resolved Problem 06/12/2013 [facility] Problem Resolved 2013-06-12 22:04: 00 [facility] lumbar fusion surgery lumb ar fusion surgery Resolved Problem 06/12/2013 [facility] Problem Resolved 2013-06-12 22:04: 00 [facility] Endometriosis (disorder) Endo metriosis (disorder) Active Problem 08/08/2016 [facility] Problem Active 2016-08-08 03:04:3 7 [facility] Polycystic ovaries (disorder) Polycystic ovaries (disorder) Resolved Problem 08/08/2016 [facility] Problem Resolved 2016-08-08 03:04:37 [facility] Carcinoma of cervix (disorder) Carcinoma of cervix (disorder) Resolved Problem 08/08/2016 [facility] Problem Resolved 2016-08-08 03:04:37 [facility] Crohn's disease (disorder) Heel Brusher hn's disease (disorder) Resolved Problem 08/08/2016 [facility] Problem Resolved 2016-08-08 03:04:37 [facility] History of bypass of stomach (situation) History of bypass of stomach (situation) Resolved Problem 08/08/2016 [facility] Problem Resolved 2016-08-08 03:04:37 [facility] Hypoglycemia (disorder) Hypo glycemia (disorder) Resolved Problem 08/08/2016 [facility] Problem Resolved 2016-08-08 03:04: 37 [facility] Systemic lupus erythematosus (disorder) Systemic lupus erythematosus (disorder) Resolved Problem 08/08/2016 [facility] Problem Resolved 2016-08-08 03:04:37 [facility] Mechanical complication of internal orth opedic device, implant AND/OR graft (disorder) Mechanical compl ication of internal orthopedic device, implant AND/OR graft (disorder) Resolved Problem 08/08/2016 [facility] Problem Resolved 2016-08-08 03:04:37 [facility] SYNCOPE AND COLLAPSE SYNC OPE AND COLLAPSE Active [facility] Diagnosis Active 2011-10-09 13:27:00 [facility] ANEMIA NOS ANEM IA NOS Active [facility] Diagnosis Active 2011-10-09 13:27:00 [facility] RETENTION OF URINE NOS RETE NTION OF URINE NOS Active [facility] Active 2012-07-17 21:43:00 [facility] BRONCHITIS NOS BRON CHITIS NOS Active [facility] Active 2013-06-19 13:07:00 [facility] VOMITING ALONE VOMI TING ALONE Active [facility] Active 2013-09-05 13:40:00 [facility] NAUSEA WITH VOMITING NAUS EA WITH VOMITING Active [facility] Active 2014-09-22 14:10:00 [facility] UNSPECIFIED ABDOMINAL PAIN UNS PECIFIED ABDOMINAL PAIN Active [facility] Diagnosis Active 2016-05-03 10:33:00 [facility] Urticaria, unspecified Urti caria, unspecified 08/05/2016 08/08/2016 [facility] Problem 2016-08-05 05:00:00 2016 03:04:37 2016-08-08 03:04:37 [facility] Unspecified abdominal pain Uns pecified abdominal pain 07/13/2016 07/16/2016 [facility] Problem 2016-07-13 06:0 0:00 2016-07-16 04:19:15 2016-07-16 04:19:15 [facility] Pain in unspecified joint Pain in unspecified joint 07/13/2016 07/16/2016 [facility] Problem 2016-07-13 06:00:00 2016 04:19:15 2016-07-16 04:19:15 [facility] Discharge Diagnosis: Abdominal pain Discharge Diagnosis: Abdominal pain 04/06/2016 04/09/2016 [facility] Problem 2016-04-06 06:00:00 2016-04-09 03:49:42 2016-04-09 03:49:42 [facility] Discharge Diagnosis: Acute pyelonephritis Discharge Diagnosis: Acute pyelonephritis 03/02/2016 03/05/2016 [facility] Problem 2016-03-02 05:00:00 2016-03-05 04:12:17 2016-03-05 04:12:17 [facility] Discharge Diagnosis: Contusion of left upper arm, init ial encounter Discharge Diagnosis: Contusion of left upper arm, initial encounter 03/20/2015 03/23/2015 [facility] Problem 2015-03-20 06:0 0:00 2015-03-23 05:57:21 2015-03-23 05:57:21 [facility] Discharge Diagnosis: Transaminitis Discharge Diagnosis: Transaminitis 09/14/2014 10/03/2014 [facility] Problem 2014-09-14 05:00:00 2014-10-03 00:38:24 2014-10-03 00:38:24 [facility] Discharge Diagnosis: Abdominal pain in female patient Discharge Diagnosis: Abdominal pain in female patient 09/14/2014 10/03/2014 [facility] Problem 2014-09-14 05:00:00 2014-10-03 00:38:24 2014-09 00:38:24 [facility] Discharge Diagnosis: Contusion of foot, left Discharge Diagnosis: Contusion of foot, left 02/09/2014 02/11/2014 [facility] Problem 2014-02-09 05:00:00 2014-02-11 22:54:35 2014-02-11 22:54:35 [facility] Discharge Diagnosis: Pain in left foot Discharge Diagnosis: Pain in left foot 02/09/2014 02/11/2014 [facility] Problem 2014-02-09 05:00:00 2014-02-11 22:54:35 2014-02-11 22:54:35 [facility] Discharge Diagnosis: Headache Discharge Diagnosis: Headache 12/07/2013 12/09/2013 [facility] Problem 12-07 05:00:00 2013-12-09 21:48:24 2013-12-09 21:48:24 [facility] Discharge Diagnosis: Abdominal pain Discharge Diagnosis: Abdominal pain 09/13/2013 09/15/2013 [facility] Problem 2013-09-13 05:00:00 2013-09-15 23:04:40 2013-09-15 23:04:40 [facility] Discharge Diagnosis: Elevated liver function tests Discharge Diagnosis: Elevated liver function tests 09/02/2013 09/12/2013 [facility] Problem 2013-09-02 05:00:00 2013-09-12 21:10:33 2013-09 21:10:33 [facility] Discharge Diagnosis: abdominal pain/elevated lft's Discharge Diagnosis: abdominal pain/elevated lft's 09/01/2013 09/03/2013 [facility] Problem 2013-09-01 05:00:00 2013-09-03 20:24:25 2013-08 20:24:25 [facility] Allergies, Adverse Reactions, Alerts Allergy Name Allergy Type Status Severity Reaction(s) Onset Date Inacti ve Date Treating Clinician Comments Source iodine Allergy to Substance Active Moderate hives 2019-05-19 00:00:00 [facility] clavulanic acid Allergy to Substance Active Moderate hives 202 00:00:00 [facility] Amoxicillin Allergy to Substance Active Moderate hives 2019-05-19 00: 00:00 [facility] Shellfish Derived Propensity to adverse reactions to drug Active Anaphylaxis 2017-02-15 00:00:00 Pt reports Iodine (topical a nd IV) ok Juan Carlos Woodall Other Propensity to adverse reactions Active Rash 00:00:00 Paper tapePaper Tape Juan Carlos Woodall Amoxicillin-Pot Clavulanate Propensity to adverse reactions to drug Active Hives 2016-08-24 00:00:00 Juan Carlos Woodall aspirin aspirin Active [facility] Augmentin Augmentin Active [facility] Food MSG Food MSG Active [place] [facility] Imitrex Imitrex Active [facility] iodine iodine Active [facility] Iron (Ferrous Sulfate) Iron (Ferrous Sulfate) Active [facility] Paper Tape Paper Tape Active Me morial [facility] shellfish shellfish Active [facility] Latex Latex Active [facility] Social History Social Habit Start Date Stop Date Quantity Comments Source Sex Assigned At Clara Woodall Alcohol intake 2017-02-17 00:00:00 2017-02-17 00:00:00 Current non-drinker of alcohol (finding) Juan Carlos Woodall Social History 2013-09-03 00:31:12 2013-09-03 00:31:12 [facility] Smoking Status Start Date Stop Date Source Current every day smoker 2017-02-17 00:00:00 Clara Woodall Medications Ordered Medication Name Filled Medication Name Start Date Stop Da te Current Medication? Ordering Clinician Indication Dosage Frequency Signature (SIG) Comments Components Source Cyclobenzaprine Hcl (Flexeril) 5 Mg Tablet Cyclobenzap rine Hcl (Flexeril) 5 Mg Tablet 2019-07-25 00:00:00 Yes Sima Linares Md 10 Three Times A Day for Pain [facility] mesalamine (PENTASA) 500 MG CR capsule 2017-02-15 18:15:15 Yes 1000mg [id number] Take 1,000 mg by mouth 3 (three) times a day. Juan Carlos Woodall zolpidem CR (AMBIEN CR) 12.5 MG CR tablet 2017-02-15 18:15:15 Yes 12.5mg QD Take 12.5 mg by mouth nightly as needed for sleep. Juan Carlos Woodall citalopram (CeleXA) 40 MG tablet 2017-02-15 18:15:15 Yes 40mg QD Take 40 mg by mouth daily. Juan Carlos Woodall DIAZEPAM ORAL 2017-02-15 18:15:15 Yes 10mg Q.[id number] Take 10 mg by mouth 3 (three) times a day. Mina Woodall MIRTAZAPINE (REMERON ORAL) 2017-02-15 18:15:15 Yes QD Take by mouth nightly. Juan Carlos Woodall promethazine (PHENERGAN) 50 MG tablet 2017-02-15 18:15:15 Y es 50mg Q6H Take 50 mg by mouth every 6 (six) hours as needed for nausea or vomiting. Juan Carlos Woodall scopolamine (TRANSDERM-SCOP) 1.5 mg (1 mg over 3 days) 2017-02-15 18:15:15 Yes 1{patch} Q72H Place 1 patch on the skin every third d ay. Juan Carlos Woodall dicyclomine (BENTYL) 10 MG capsule 2017-02-15 18:15:15 Yes 10mg Take 10 mg by mouth. Juan Carlos Woodall gabapentin (NEURONTIN) 300 mg capsule 2017-02-15 18:15:15 Yes 300mg Q.[id number] Take 300 mg by mouth 3 (three) times a day. Juan Carlos Woodall TiZANidine (ZANAFLEX) 4 MG capsule 2017-02-15 18:15:15 Y es 4mg Q.[id number] Take 4 mg by mouth 3 (three) times a day. Juan Carlos Woodall Phenergan 2016-08-05 10:41:00 No 25 mg, Route: IM, ONCE, Dosing Weight 68.636, kg, Priority: STAT, Start date: 08/05/16 5:41:00 CDT, Stop date: 08/05/16 5:41:00 CDT [facility] 0.3 ML Epinephrine 1 MG/ML Prefilled Syringe 2016-08-05 10:35:00 Yes 0.3 mg, IM, PRN, PRN allergic reaction o r asthma, inject into leg for severe allergic reaction, # 1 kit, 0 Refill(s) [facility] Prednisone 50 MG Oral Tablet 2016-08-05 10:12:00 Yes 50 mg = 1 tab, PO, Daily, X 5 day, # 5 tab, 0 Refill(s) [facility] Famotidine 20 MG Oral Tablet 2016-08-05 10:12:00 Yes 20 mg = 1 tab, PO, BID, # 28 tab, 0 Refill(s) [facility] Hydroxyzine Hydrochloride 25 MG Oral Tablet 2016-08-05 10:11:00 Yes 25 mg = 1 tab, PO, QID, X 14 day, # 56 tab, 0 Refill(s) [facility] Diphenhydramine 2016-08-05 08:06:00 No 50 mg, Route: IM, ONCE, Dosing Weight 68.636, kg, Priority: STAT, Start date: 08/05/16 3:06:00 CDT, Stop date: 08/05/16 3:06:00 CDT [facility] Famotidine 2016-08-05 08:06:00 No 20 mg, Route: PO, ONCE, Dosing Weight 68.636, kg, Priority: STAT, Start date: 08/05/16 3:06:00 CDT, Stop date: 08/05/16 3:06:00 CDT [facility] methylPREDNISolone SODium SUCCinate 2016-08-05 08:06:00 No 125 mg, Route: IM, ONCE, Dosing Weight 68.636, kg, Priority: STAT, Start date: 08/05/16 3:06:00 CDT, Stop date: 08/05/16 3:06:00 CDT [facility] Phenergan 2016-07-13 17:25:00 No Notes: Do not give IV push. (Same as: Phenergan) [facility] Phenergan 2016-07-13 17:16:00 No 12.5 mg, Route: IVPB, ONCE, Dosing Weight 65, kg, PRN Nausea & Vomiting, Start date: 07/13/16 11:16:00 PHARMACY SALES REPRESENTATIVE [facility] Fentanyl 2016-07-13 17:16:00 No 50 microgram, Route: IV, ONCE, Dosing Weight 65, kg, Start date: 07/13/16 11:16:00 PHARMACY SALES REPRESENTATIVE, Stop date: 07/13/16 11:16:00 PHARMACY SALES REPRESENTATIVE [facility] Acetaminophen 325 MG / Hydrocodone Bitartrate 5 MG Oral Tabl et [[place] 5/325] 2016-07-13 16:37:00 Yes 1 tab, PO, Q4H, PRN for pain, X 5 day, # 24 tab, 0 Refill(s) [facility] Cipro 2016-07-13 16:18:00 No 400 mg, Route: IVPB, ONCE, Dosing Weight 65, kg, Priority: STAT, Start date: 07/13/16 10:18:00 PHARMACY SALES REPRESENTATIVE, Stop date: 07/13/16 10:18:00 PHARMACY SALES REPRESENTATIVE [facility] Flagyl 2016-07-13 16:18:00 No 500 mg, Route: IVPB, ONCE, Dosing Weight 65, kg, Priority: STAT, Start date: 07/13/16 10:18:00 PHARMACY SALES REPRESENTATIVE, Stop date: 07/13/16 10:18:00 PHARMACY SALES REPRESENTATIVE [facility] Acetaminophen 325 MG / Hydrocodone Bitartrate 5 MG Oral Tabl et [[place] 5/325] 2016-07-13 15:51:00 No 1 tab, Route: PO, Drug Form: TAB, Dosing Weight 65, kg, ONCE, STAT, Start date: 07/13/16 9:51:00 PHARMACY SALES REPRESENTATIVE, Stop date: 07/13/16 9:51:00 PHARMACY SALES REPRESENTATIVE [facility] Fentanyl 2016-07-13 13:59:00 No 50 microgram, Route: IVP, ONCE, Dosing Weight 65, kg, Priority: STAT, Start date: 07/13/16 7:59:00 PHARMACY SALES REPRESENTATIVE, Stop date: 07/13/16 7:59:00 PHARMACY SALES REPRESENTATIVE [facility] Fentanyl 2016-07-13 12:08:00 No Notes: (Same as: Sublimaze) Preservative free. [facility] Phenergan 2016-07-13 12:07:00 No Notes: Do not give IV push. (Same as: Phenergan) [facility] Zofran 2016-07-13 11:28:00 No 4 mg, Route: IVP, 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, ONCE, Dosing Weight 65, kg, Priority: STAT, Start date: 07/13/16 5:28:00 PHARMACY SALES REPRESENTATIVE, Stop date: 07/13/16 5:28:00 PHARMACY SALES REPRESENTATIVE [facility] Morphine 2016-07-13 11:28:00 No 4 mg, Route: IVP, ONCE, Dosing Weight 65, kg, Priority: STAT, Start date: 07/13/16 5:28:00 PHARMACY SALES REPRESENTATIVE, Stop date: 07/13/16 5:28:00 PHARMACY SALES REPRESENTATIVE [facility] Sodium Chloride 0.154 MEQ/ML Injectable Solution 2016-07-13 11:2 8:00 No 1,000 mL, 1,000 ml/hr, Infus e Over: 1 hr, Route: IV, 1,000, 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, ONCE, Priority: STAT, Dosing Weight 65 kg, Start date: 07/13/16 5:28:00 PHARMACY SALES REPRESENTATIVE, Duration: 1 doses or times, Stop date: 07/13/16 5:28:00 PHARMACY SALES REPRESENTATIVE [facility] gabapentin 300 MG Oral Capsule 2016-07-13 10:10:00 Yes 300 mg = 1 cap, PO, TID, # 90 cap, 0 Refill(s) [facility] mesalamine 500 MG Extended Release Capsule [Pentasa] 2 10:08:00 Yes 500 mg = 1 cap, PO, QID, # 120 cap, 0 Re fill(s) [facility] Acetaminophen 300 MG / Codeine Phosphate 30 MG Oral Tablet [Tylenol with Codeine #3] 2016-05-10 23:41:00 Yes 1 - 2 tab, PO, Q4H, PRN Pain, X 2 week, # 30 tab, 2 Refill(s) [facility] Enoxaparin 2016-05-10 04:00:00 No Notes: (S bhumi as: Lovenox) [facility] Hydromorphone 2016-05-09 16:00:00 No 0.5 mg, 0.5 mL, Route: IVP, 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, Q5Min, Dosing Weight 68.835, kg, PRN Pain Score 7-10, Start date: 05/09/16 10:00:00 PHARMACY SALES REPRESENTATIVE, Duration: 4 doses or times, Stop date: Limited # of times [facility] Morphine 2016-05-09 16:00:00 No Not es: (Same as:MORPhine Sulfate) [facility] Naloxone 2016-05-09 16:00:00 No Notes: Same as Narcan [facility] Flumazenil 2016-05-09 16:00:00 No Notes: (S bhumi as: Romazicon) [facility] Fentanyl 2016-05-09 16:00:00 No Notes: (Same as: Sublimaze) Preservative free. [facility] Diphenhydramine 2016-05-09 16:00:00 No Notes: (Same as: Benadryl) [facility] Labetalol 2016-05-09 16:00:00 No Notes: (Same as: Normodyne, Trandate) Push over 2 minutes Give bolus over 2-3 minutes. [facility] Acetaminophen 2016-05-09 16:00:00 No Notes: Infuse over 15 minutes Do not exceed 4gm/day of acetaminophen MEDICATION WASTE Product Size: 1000 mg Product Wasted: ___ mg [place] Metoprolol 2016-05-09 16:00:00 No Notes: (Same as: Lopressor) Push over 2 minutes [facility] Ketorolac 2016-05-09 16:00:00 No 4 days MEDICATION WASTE Product Size: 30 mg Product Wasted: ___ mg [facility] Ondansetron 2016-05-09 16:00:00 No Notes: (Same as: Zofran) MEDICATION WASTE Product Size: 4 mg Product Wasted: ___ mg [facility] Meperidine 2016-05-09 16:00:00 No Notes: (S bhumi As: Demerol) [facility] Hydralazine 2016-05-09 16:00:00 No Notes: (Same as: Apresoline) Push over 5 minutes [facility] ondansetron (ANES) 2016-05-09 15:34:00 No Route: IV, 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, ONCE, Stop date: 05/09/16 9:34:00 PHARMACY SALES REPRESENTATIVE [facility] sugammadex (ANES) 2016-05-09 15:34:00 No Route: IV, Drug form: SOLN, ONCE, Stop date: 05/09/16 9:34:00 PHARMACY SALES REPRESENTATIVE [facility] phenylephrine (ANES) 2016-05-09 15:34:00 No Route: IV, 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, ONCE, Stop date: 05/09/16 9:34:00 PHARMACY SALES REPRESENTATIVE [facility] famotidine ([facility]) 2016-05-09 15:22:00 No Route: IV, 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, ONCE, Stop date: 05/09/16 9:22:00 PHARMACY SALES REPRESENTATIVE [facility] scopolamine ([facility]) 2016-05-09 15:22:00 No Route: Transdermal, Drug form: ERFILM, ONCE, Stop date: 05/09/16 9:22:00 PHARMACY SALES REPRESENTATIVE [facility] dexamethasone (ANES) 2016-05-09 15:12:00 No Route: IV, 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, ONCE, Stop date: 05/09/16 9:12:00 PHARMACY SALES REPRESENTATIVE [facility] rocuronium ([facility]) 2016-05-09 15:12:00 No Route: IV, 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, ONCE, Stop date: 05/09/16 9:12:00 PHARMACY SALES REPRESENTATIVE [facility] propofol ([facility]) 2016-05-09 15:12:00 No Route: IV, 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, ONCE, Stop date: 05/09/16 9:12:00 PHARMACY SALES REPRESENTATIVE [facility] fentaNYL ([facility]) 2016-05-09 15:12:00 No Route: IV, 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, ONCE, Stop date: 05/09/16 9:12:00 PHARMACY SALES REPRESENTATIVE [facility] lidocaine ([facility]) 2016-05-09 15:12:00 No Route: IV, 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, ONCE, Stop date: 05/09/16 9:12:00 PHARMACY SALES REPRESENTATIVE [facility] midazolam ([facility]) 2016-05-09 15:07:00 No Route: IV, Drug form: SOLN, ONCE, Stop date: 05/09/16 9:07:00 PHARMACY SALES REPRESENTATIVE [facility] ceFAZolin ([facility]) ([facility]) 2016-05-09 14:22:00 No Route: IV, 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, Start date: 05/09/16 8:22:00 PHARMACY SALES REPRESENTATIVE, Stop date: 05/09/16 9:22:00 PHARMACY SALES REPRESENTATIVE [facility] LR 1000 mL INJ ([facility]) 2016-05-09 14:21:00 No Route: IV, Total Volume: 1,000, Start date: 05/09/16 8:21:00 PHARMACY SALES REPRESENTATIVE, Stop date: 05/09/16 9:21:00 PHARMACY SALES REPRESENTATIVE [facility] D5W 1,000 mL 2016-05-08 16:53:00 No 1,000 mL, Rate: 40 ml/hr, Infuse over: 25 hr, Route: IV, Dosing Weight 68.835 kg, Total Volume: 1,000, Start date: 05/08/16 10:53:00 PHARMACY SALES REPRESENTATIVE, Duration: 30 day, Stop date: 06/07/16 10:52:00 PHARMACY SALES REPRESENTATIVE [facility] Relistor 2016-05-07 15:00:00 No Notes: Same as: Relistor Restricted to Palliative Care [facility] Miralax 2016-05-07 15:00:00 No Notes: Dissolve in 8 oz of water or juice. (Same as: Miralax) [facility] Dilaudid 2016-05-06 23:35:00 No 1 mg, 1 mL, Route: IVP, 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, Q6H, Dosing Weight 68.835, kg, PRN Pain Score 7-10, Start date: 05/06/16 17:35:00 PHARMACY SALES REPRESENTATIVE, Duration: 30 day, Stop date: 06/05/16 17:34:00 PHARMACY SALES REPRESENTATIVE [facility] Dilaudid 2016-05-06 18:47:00 No 1 mg, 1 mL, Route: IVP, 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, Q4H, Dosing Weight 68.835, kg, PRN Pain Score 7-10, Start date: 05/06/16 12:47:00 PHARMACY SALES REPRESENTATIVE, Duration: 30 day, Stop date: 06/05/16 12:46:00 PHARMACY SALES REPRESENTATIVE [facility] Hydromorphone 2016-05-04 20:30:00 No 1 mg, 1 mL, Route: IV, 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, Q2H, Dosing Weight 66.364, kg, PRN Pain Score 4-6, Start date: 05/04/16 14:30:00 PHARMACY SALES REPRESENTATIVE, Duration: 30 day, Stop date: 06/03/16 14:29:00 PHARMACY SALES REPRESENTATIVE [facility] Mesalamine (Pentasa) 500 mg capsule 2016-05-04 19:00:00 No Mesalamine (Pentasa) 500 mg capsule, 1,000 mg, 2 cap, Drug form: MISC, Route: PO, TID, 05/04/16 13:00:00 PHARMACY SALES REPRESENTATIVE, Duration: 30 day, Stop date: 06/03/16 9:00:00 PHARMACY SALES REPRESENTATIVE [facility] Propranolol 2016-05-03 23:00:00 No Notes: Give with food. (Same as: Inderal) [facility] Citrate of Magnesia 2016-05-01 15:38:00 No Notes: (Same as: Citrate of Magnesia) Concentration: 1.745 gm / 30 mL [facility] zolpidem 2016-05-01 04:29:00 No Notes: ([facility] As: Ambien) [facility] Mirtazapine 2016-05-01 03:00:00 No Notes: ( Same as:Remeron) [facility] SENOKOT-S 2016-05-01 03:00:00 No Notes: (Same as Senokot-S) Equiv. to Marlene-Colace. [facility] pt own buprenorphine (Belbuca) 2016-05-01 02:11:00 No pt own buprenorphine (Belbuca), 150 microgram, Drug form: MISC, Route: BUC, TID, PRN Pain Score 4-6, 04/30/16 20:11:00 PHARMACY SALES REPRESENTATIVE, Duration: 30 day, Stop date: 05/30/16 20:10:00 PHARMACY SALES REPRESENTATIVE [facility] Propranolol 2016-04-30 23:00:00 No Notes: Take with food. Do not crush or chew. (Same as: Inderal [place]) [facility] gabapentin 100 MG Oral Capsule 2016-04-30 22:00:00 No Notes: (Same as: Neurontin) [facility] Diazepam 2016-04-30 22:00:00 No Notes: ([facility] e as: Valium) [facility] Atropine 2016-04-30 20:50:00 No 0.5 mg, 5 mL, Route: IVP, 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, ONCE, Dosing Weight 66.364, kg, PRN Bradycardia, Start date: 04/30/16 14:50:00 PHARMACY SALES REPRESENTATIVE [facility] Nitroglycerin 0.4 MG Sublingual Tablet 2016-04-30 20:50:00 No Notes: (Same as:Nitroquick, Nitrostat) "Do Not Crush" Sublingual tablet [facility] Chlordiazepoxide Hydrochloride 5 MG / Clidinium bromide 2.5 MG Oral Capsule 2016-04-30 17:30:00 No Notes: (Same As: L ibrax) [facility] Citrate of Magnesia 2016-04-30 15:45:00 No Notes: (Same as: Citrate of Magnesia) Concentration: 1.745 gm / 30 mL [facility] Macrobid 2016-04-30 15:00:00 No Notes: Not recommended for patients with CrCl<50 ml/min (Same as:Macrobid) With food. [facility] Multivitamins with Folic Acid 0.8 mg oral tablet 2016-04-30 15:00:00 No 1 tab, Route: PO, Drug Form: TAB, Dosing Weight 66.364, kg, Daily, Start date: 04/30/16 9:00:00 PHARMACY SALES REPRESENTATIVE, Duration: 30 day, Stop date: 05/29/16 9:00:00 PHARMACY SALES REPRESENTATIVE [facility] Pentasa 2016-04-30 15:00:00 No 500 mg, Route: PO, TID, Dosing Weight 66.364, kg, Start date: 04/30/16 9:00:00 PHARMACY SALES REPRESENTATIVE, Duration: 30 day, Stop date: 05/29/16 17:00:00 PHARMACY SALES REPRESENTATIVE [facility] Folic Acid 2016-04-30 15:00:00 No Notes: (S bhumi as: Folvite) [facility] Fentanyl 2016-04-30 15:00:00 No 1 patch, Route: TOP, Drug form: ERFILM, Q72H, Dosing Weight 66.364, kg, Start date: 04/30/16 9:00:00 PHARMACY SALES REPRESENTATIVE, Duration: 30 day, Stop date: 05/27/16 9:00:00 PHARMACY SALES REPRESENTATIVE [facility] Diazepam 2016-04-30 15:00:00 No 10 mg, Route: PO, Drug form: TAB, TID, Dosing Weight 66.364, kg, Start date: 04/30/16 9:00:00 PHARMACY SALES REPRESENTATIVE, Duration: 30 day, Stop date: 05/29/16 17:00:00 PHARMACY SALES REPRESENTATIVE [facility] Citalopram 2016-04-30 15:00:00 No 40 mg, 4 tab, Route: PO, Drug form: TAB, Daily, Dosing Weight 66.364, kg, Start date: 04/30/16 9:00:00 PHARMACY SALES REPRESENTATIVE, Duration: 30 day, Stop date: 05/29/16 9:00:00 PHARMACY SALES REPRESENTATIVE [facility] Please bring Pt's Own Buprenorphine to pharmacy for label 2016-04-30 15:00:00 No Please bring P t's Own Buprenorphine to pharmacy for label, Reminder, Drug form: MISC, Route: MISC, Q12H, 04/30/16 9:00:00 PHARMACY SALES REPRESENTATIVE, Duration: 30 day, Stop date: 05/29/16 21:00:00 PHARMACY SALES REPRESENTATIVE [facility] XIFAXAN 2016-04-30 15:00:00 No Notes: Same as: Xifaxan [facility] pantoprazole 2016-04-30 15:00:00 No Notes: Tablet should not be chewed or crushed. (Same as: Protonix) [facility] Prednisone 1 MG Oral Tablet 2016-04-30 15:00:00 No Notes: (Same as: PredniSONE) [facility] 2016-04-30 14:40:00 No Notes: ( Same as: Zofran) [facility] Temazepam 2016-04-30 14:28:00 No Notes: (Sa me As: Restoril) [facility] 72 HR Scopolamine 0.0139 MG/HR Transdermal Patch 2016-04-30 14:2 8:00 No Notes: Change patch every 72 hours (Same as: Transde rm-Scop) [facility] Dicyclomine 2016-04-30 14:27:00 No Notes: ( Same as: Bentyl) [facility] Buprenorphine 2016-04-30 14:27:00 No 150 microgram, Route: BUC, Drug form: FILM, TID, Dosing Weight 66.364, kg, PRN Pain Score 1-3, Start date: 04/30/16 8:27:00 PHARMACY SALES REPRESENTATIVE, Duration: 30 day, Stop date: 05/30/16 8:26:00 PHARMACY SALES REPRESENTATIVE [facility] Promethazine 2016-04-30 14:27:00 No Notes: (Same as: Phenergan) [facility] D5NS 1,000 mL 2016-04-30 13:08:00 No 1,000 mL, Rate: 100 ml/hr, Infuse over: 10 hr, Route: IV, Dosing Weight 66.364 kg, Total Volume: 1,000, Start date: 04/30/16 7:08:00 PHARMACY SALES REPRESENTATIVE, Duration: 30 day, Stop date: 05/30/16 7:07:00 PHARMACY SALES REPRESENTATIVE [facility] Hydromorphone 2016-04-30 13:07:00 No 1.25 mg, 1.25 mL, Route: IV, 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, Q4H, Dosing Weight 66.364, kg, PRN Pain Score 6-10, Start date: 04/30/16 7:07:00 PHARMACY SALES REPRESENTATIVE, Stop date: 05/30/16 7:06:00 PHARMACY SALES REPRESENTATIVE [facility] nitrofurantoin 2016-04-30 13:01:00 No 100 mg, PO, BID, # 14 cap, 0 Refill(s) [facility] Pentasa 2016-04-30 13:01:00 No 500 mg, PO, TID, 0 Refill(s) [facility] SENOKOT-S 2016-04-30 12:46:00 Yes 2 tab, PO, Bedtime, 0 Refill(s) [facility] Classic 2016-04-30 12:46:00 Yes 1 tab, PO, Daily, 0 Refill(s) [facility] diazepam 10 mg oral tablet 2016-04-30 12:46:00 Yes 10 mg = 1 tab, PO, TID, 0 Refill(s) [facility] rifaximin 550 MG Oral Tablet [XIFAXAN] 2016-04-30 12:46:00 Yes 550 mg = 1 tab, PO, BID, 0 Refill(s) Anju dalton ondansetron 8 mg oral tablet 2016-04-30 12:46:00 Yes 8 mg = 1 tab, PO, TID, 0 Refill(s) [facility] mirtazapine 7.5 mg oral tablet 2016-04-30 12:46:00 Yes 7.5 mg = 1 tab, PO, Bedtime, 0 Refill(s) [facility] Sodium Chloride 0.154 MEQ/ML Injectable Solution 2016-04-30 11:5 5:00 No 1,000 mL, Rate: 125 ml/hr, I nfuse over: 8 hr, Route: IV, Dosing Weight 65.455 kg, Total Volume: 1,000, Start date: 04/30/16 5:55:00 PHARMACY SALES REPRESENTATIVE, Duration: 30 day, Stop date: 05/30/16 5:54:00 PHARMACY SALES REPRESENTATIVE [facility] Saline Flush 0.9% 2016-04-30 11:55:00 No Notes: (Same as: BD Posiflush) [facility] Acetaminophen 2016-04-30 11:55:00 No Notes: Do not exceed 4 gm/day. (Same as: Tylenol) [facility] Ondansetron 2016-04-30 11:55:00 No Notes: (Same as: Zofran) MEDICATION WASTE Product Size: 4 mg Product Wasted: ___ mg [facility] Morphine 2016-04-30 11:55:00 No Not es: (Same as:MORPhine Sulfate) [facility] Morphine 2016-04-30 11:01:00 No 4 mg, Route: IVP, ONCE, Dosing Weight 65.455, kg, Priority: STAT, Start date: 04/30/16 5:01:00 PHARMACY SALES REPRESENTATIVE, Stop date: 04/30/16 5:01:00 PHARMACY SALES REPRESENTATIVE [facility] Ondansetron 2016-04-30 11:01:00 No 4 mg, Route: IVP, 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, ONCE, Dosing Weight 65.455, kg, Priority: STAT, Start date: 04/30/16 5:01:00 PHARMACY SALES REPRESENTATIVE, Stop date: 04/30/16 5:01:00 PHARMACY SALES REPRESENTATIVE [facility] Hydromorphone 2016-04-30 06:06:00 No 1 mg, Route: IVP, ONCE, Dosing Weight 65.455, kg, Priority: STAT, Start date: 04/30/16 0:06:00 PHARMACY SALES REPRESENTATIVE, Stop date: 04/30/16 0:06:00 PHARMACY SALES REPRESENTATIVE [facility] Sodium Chloride 0.154 MEQ/ML Injectable Solution 2016-04-30 01:4 7:00 No 1,000 mL, 2,000 ml/hr, Infus e Over: 30 minutes, Route: IV, 1,000, 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, ONCE, Priority: STAT, Dosing Weight 65.455 kg, Start date: 04/29/16 19:47:00 PHARMACY SALES REPRESENTATIVE, Duration: 1 doses or times, Stop date: 04/29/16 19:47:00 PHARMACY SALES REPRESENTATIVE [facility] Ondansetron 2016-04-30 01:47:00 No Notes: (Same as: Rukhsana) MEDICATION WASTE Product Size: 4 mg Product Wasted: ___ mg [facility] Protonix 2016-04-13 13:30:00 No Notes: Tablet should not be chewed or crushed. (Same as: Protonix) [facility] Pentasa 2016-04-12 23:00:00 No 1,000 mg, 4 cap, Route: PO, Drug form: ERCAP, QID, Dosing Weight 64.091, kg, Start date: 04/12/16 17:00:00 PHARMACY SALES REPRESENTATIVE, Duration: 30 day, Stop date: 05/12/16 13:00:00 PHARMACY SALES REPRESENTATIVE [facility] fentaNYL 25 mcg/hr transdermal film, extended release 2016-04-12 21:25:00 Yes 1 patch, TOP, Q72H, 0 Refill(s) [facility] tizanidine 4 mg oral tablet 2016-04-12 21:25:00 Yes 4 mg, PO, BID, 0 Refill(s) [facility] propranolol 80 mg oral capsule, extended release 2016-04-12 21:25:00 Yes 80 mg = 1 cap, PO, Daily, # 30 cap, 0 Refill(s) [facility] promethazine 50 mg oral tablet 2016-04-12 21:25:00 Yes 50 mg = 1 tab, PO, Q6H, PRN Nausea & Vomiting, # 40 tab, 0 Refill(s) [facility] citalopram 40 mg oral tablet 2016-04-12 21:25:00 Yes 40 mg = 1 tab, PO, Daily, # 30 tab, 0 Refill(s) [facility] sha Folic Acid 2016-04-12 21:25:00 Yes 2 mg, PO, Daily, 0 Refill(s) [facility] dicyclomine 10 mg oral capsule 2016-04-12 21:25:00 Yes 20 mg = 2 cap, PO, TID, PRN Spasm, 0 Refill(s) [facility] predniSONE 10 mg oral tablet 2016-04-12 21:25:00 Yes See Special Instructions, PO, Daily, 12 day regimen: 2 weeks - 30 mg (3 tabs) daily 2 weeks - 20 mg (2 tabs) daily 2 weeks- 1.5tabs daily 2 weeks - 10 mg (1 tab) daily 2 weeks - 1/2 tab daily, # 24 tab, 0 Refill(s) [facility] temazepam 30 mg oral capsule 2016-04-12 21:25:00 Yes 30 mg = 1 cap, PO, Bedtime, PRN Sleep, # 14 cap, 0 Refill(s) [facility] gabapentin 100 MG Oral Capsule 2016-04-12 21:25:00 Yes 100 mg = 1 cap, PO, TID, # 90 cap, 1 Refill(s) [facility] pantoprazole 40 mg oral enteric coated tablet 2016-04-12 21:25:0 0 Yes 40 mg = 1 tab, PO, BID, 0 Refill(s) [facility] Vitamin B 12 2016-04-12 21:25:00 Yes 1,000 microgram, IM, q 2 weeks, 0 Refill(s) [facility] 72 HR Scopolamine 0.0139 MG/HR Transdermal Patch 2016-04-12 21:25:00 Yes 1.5 mg = 1 patch, TOP, Q72H, PRN Other-Se e Comments, # 4 ea, 0 Refill(s) [facility] mesalamine 500 MG Extended Release Capsule [Pentasa] 2 21:25:00 Yes 1,000 mg = 2 cap, PO, TID, # 120 cap, 0 Refill(s) [facility] Buprenorphine 0.15 MG Buccal Film [[place]] 2016-04-12 21:25:00 Yes 150 microgram = 1 ea, BUC, TID, PRN Pain Score 1-3, 0 Refill(s) [facility] diazepam 10 mg oral tablet 2016-04-12 21:25:00 Yes 10 mg = 1 tab, PO, TID, 0 Refill(s) [facility] zolpidem 12.5 mg oral tablet, extended release 2016-04-12 21:25: 00 Yes 12.5 mg = 1 tab, PO, Bedtime, PRN for sleep, 0 Refill( s) [facility] Chlordiazepoxide Hydrochloride 5 MG / Clidinium bromide 2.5 MG Oral Capsule 2016-04-12 21:25:00 Yes 2 cap, PO, TID-Bef ore Meals, 0 Refill(s) [facility] Dilaudid 2016-04-12 11:12:00 No 0.5 mg, 0.5 mL, Route: IV, 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, Q4H, Dosing Weight 64.091, kg, PRN Pain Score 6-10, Priority: Routine, Start date: 04/12/16 5:12:00 PHARMACY SALES REPRESENTATIVE, Duration: 30 day, Stop date: 05/12/16 5:11:00 PHARMACY SALES REPRESENTATIVE [facility] Acetaminophen 2016-04-12 11:12:00 No Notes: Do not exceed 4 gm/day. (Same as: Tylenol) [facility] Saline Flush 0.9% 2016-04-12 11:12:00 No Notes: (Same as: BD Posiflush) [facility] D5W 1/2NS 1,000 mL 2016-04-12 11:12:00 No 1,000 mL, Rate: 125 ml/hr, Infuse over: 8 hr, Route: IV, Dosing Weight 64.091 kg, Total Volume: 1,000, Start date: 04/12/16 5:12:00 PHARMACY SALES REPRESENTATIVE, Duration: 30 day, Stop date: 05/12/16 5:11:00 PHARMACY SALES REPRESENTATIVE [facility] D5W 1/2NS 1,000 mL 2016-04-12 11:01:00 No 1,000 mL, Rate: 75 ml/hr, Infuse over: 13.3 hr, Route: IV, Dosing Weight 64.091 kg, Total Volume: 1,000, Start date: 04/12/16 5:01:00 PHARMACY SALES REPRESENTATIVE, Duration: 30 day, Stop date: 05/12/16 5:00:00 PHARMACY SALES REPRESENTATIVE [facility] Dilaudid 2016-04-12 11:00:00 No 0.5 mg, Route: IVP, ONCE, Dosing Weight 64.091, kg, Priority: STAT, Start date: 04/12/16 5:00:00 PHARMACY SALES REPRESENTATIVE, Stop date: 04/12/16 5:00:00 PHARMACY SALES REPRESENTATIVE [facility] Dilaudid 2016-04-12 06:24:00 No 0.5 mg, 0.5 mL, Route: IVP, 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, ONCE, Dosing Weight 64.091, kg, Priority: STAT, Start date: 04/12/16 0:24:00 PHARMACY SALES REPRESENTATIVE, Stop date: 04/12/16 0:24:00 PHARMACY SALES REPRESENTATIVE [facility] Phenergan 2016-04-12 06:24:00 No Notes: Do not give IV push. (Same as: Phenergan) [facility] Saline Flush 0.9% 2016-04-12 00:21:00 No Notes: (Same as: BD Posiflush) [facility] Acetaminophen 325 MG / Hydrocodone Bitartrate 5 MG Oral Tabl et [[place] 5/325] 2016-04-06 09:12:00 Yes 100.4 F, X 5 day, # 16 tab, 0 Refill(s) [facility] Dilaudid 2016-04-06 08:07:00 No 1 mg, Route: IV, ONCE, Dosing Weight 64.091, kg, Start date: 04/06/16 2:07:00 PHARMACY SALES REPRESENTATIVE, Stop date: 04/06/16 2:07:00 PHARMACY SALES REPRESENTATIVE [facility] Promethazine 2016-04-06 03:58:00 No Notes: Do not give IV push. (Same as: Phenergan) [facility] Dilaudid 2016-04-06 03:58:00 No 1 mg, Route: IV, ONCE, Dosing Weight 64.091, kg, Start date: 04/05/16 21:58:00 PHARMACY SALES REPRESENTATIVE, Stop date: 04/05/16 21:58:00 PHARMACY SALES REPRESENTATIVE [facility] Ondansetron 2016-04-06 02:18:00 No Notes: ( Same as: Zofran ODT) [facility] sodium chloride 0.9% 1000 ml INJ 1,000 m L + folic acid 1 mg + Vitamin B1 500 mg + multivitamin 10 m 2016-04-06 00:54:00 No 1,000 mL, Rate: 100 ml/hr, Infuse over: 10.2 hr, Route: IV, Dosing Weight 64.091 kg, Total Volume: 1,015.2, Start date: 04/05/16 18:54:00 PHARMACY SALES REPRESENTATIVE, Duration: 1 doses or times, Stop date: 04/06/16 5:05:00 PHARMACY SALES REPRESENTATIVE [facility] Sodium Chloride 0.154 MEQ/ML Injectable Solution 2016-04-06 00:1 5:00 No 1,000 mL, Rate: 100 ml/hr, I nfuse over: 10 hr, Route: IV, Dosing Weight 64.091 kg, Total Volume: 1,000, thiamine 500mg total, Start date: 04/05/16 18:15:00 PHARMACY SALES REPRESENTATIVE, Duration: 1 doses or times, Stop date: 04/06/16 4:14:00 PHARMACY SALES REPRESENTATIVE [facility] Sodium Chloride 0.154 MEQ/ML Injectable Solution 2016-04-06 00:1 3:00 No 1,000 mL, Rate: 100 ml/hr, Infuse over: 10 hr, Route: IV, Dosing Weight 64.091 kg, Total Volume: 1,000, Start date: 04/05/16 18:13:00 PHARMACY SALES REPRESENTATIVE, Duration: 1 doses or times, Stop date: 04/06/16 4:12:00 PHARMACY SALES REPRESENTATIVE [facility] Sodium Chloride 0.154 MEQ/ML Injectable Solution 2016-04-06 00:1 2:00 No 1,000 mL, 2,000 ml/hr, Infus e Over: 30 minutes, Route: IV, 1,000, 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, ONCE, Priority: STAT, Dosing Weight 64.091 kg, Start date: 04/05/16 18:12:00 PHARMACY SALES REPRESENTATIVE, Duration: 1 doses or times, Stop date: 04/05/16 18:12:00 PHARMACY SALES REPRESENTATIVE [facility] Saline Flush 0.9% 2016-04-06 00:10:00 No Notes: (Same as: BD Posiflush) [facility] Ondansetron (Zofran Odt) 4 Mg Tab.rapdis, 4 Mg Oral On dansetron (Zofran Odt) 4 Mg Tab.rapdis, 4 Mg Oral 2016-03-15 00:00:00 2017-07-09 00:00:00 No Willian Pinto Md 4 Q4-6H Prn [facility] Promethazine Hcl (Phenergan Supp*) 25 Mg Supp, 25 Mg R ectal Promethazine Hcl (Phenergan Supp*) 25 Mg Supp, 25 Mg Rectal 2016-03-15 00:00:00 2017-07-09 00:00:00 Orquidea Pinto Md 25 Every 8 Hours [facility] Acetaminophen With Codeine (Tylenol With Codeine #3 Tablet) 1 Each Tablet, 300 Mg Oral Acetaminophen With Codeine (Tylenol With Codeine #3 Tablet) 1 Each Tablet, 300 Mg Oral 2016-03-15 00:00:00 2016-08-10 00:00:00 No Willian quinonez Md 300 Every 6 Hours as needed for Pain [facility] Levofloxacin (Levaquin) 500 Mg Tablet, 500 Mg Oral Lev ofloxacin (Levaquin) 500 Mg Tablet, 500 Mg Oral 2016-03-15 00:00:00 2016-08-10 00:00:00 Orquidea Pinto Md 500 Daily [facility] Morphine 2016-03-03 03:39:00 No 4 mg, Route: IVP, ONCE, Dosing Weight 61.818, kg, Priority: STAT, Start date: 03/02/16 22:39:00 CDT, Stop date: 03/02/16 22:39:00 CDT [facility] Acetaminophen 300 MG / Codeine Phosphate 30 MG Oral Tablet [Tylenol with Codeine #3] 2016-03-03 03:16:00 Yes 1 tab, PO, Q6H, PRN Pain, X 5 day, # 20 tab, 0 Refill(s) [facility] Cephalexin 500 MG Oral Capsule [Keflex] 2016-03-03 03:16:00 Yes 500 mg = 1 cap, PO, QID, X 7 day, # 28 cap, 0 Refill(s) [facility] Ceftriaxone 2016-03-03 03:08:00 No Notes: (Same As: Rocephin). Use with 100 mL NS and infuse over 30 min MEDICATION WASTE Product Size: 1000 mg Product Wasted: ___ mg [facility] Promethazine 2016-03-03 03:01:00 No 12.5 mg, Route: IVPB, ONCE, Dosing Weight 61.818, kg, Priority: STAT, Start date: 03/02/16 22:01:00 CDT, Stop date: 03/02/16 22:01:00 CDT [facility] Ondansetron 2016-03-03 01:54:00 No 4 mg, Route: IVP, 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, ONCE, Dosing Weight 61.818, kg, Priority: STAT, Start date: 03/02/16 20:54:00 CDT, Stop date: 03/02/16 20:54:00 CDT [facility] Morphine 2016-03-03 01:54:00 No 4 mg, Route: IVP, ONCE, Dosing Weight 61.818, kg, Priority: STAT, Start date: 03/02/16 20:54:00 CDT, Stop date: 03/02/16 20:54:00 CDT [facility] Saline Flush 0.9% 2016-03-03 00:27:00 No Notes: (Same as: BD Posiflush) [facility] tramadol hydrochloride 50 MG Oral Tablet 2015-03-21 04:12:00 Yes 50 mg = 1 tab, PO, BID, X 7 day, # 14 tab, 0 Refill(s) [facility] Morphine 2015-03-21 04:11:00 No 4 mg, Route: IM, 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, ONCE, Dosing Weight 64.545, kg, Priority: STAT, Start date: 03/20/15 22:11:00, Stop date: 03/20/15 22:11:00 [facility] t Ketorolac 2014-09-27 03:02:00 No 4 days MEDICATION WASTE Product Size: 30 mg Product Wasted: ___ mg [facility] Acetaminophen 325 MG / butalbital 50 MG / Caffeine 40 MG Ora l Tablet [Esgic] 2014-09-27 03:00:00 No Notes: (xjyzzgazwlofz-rhpdwlygxy-qjwppdps 325-50-40mg) Do not exceed 4 gm/day of acetaminophen. (Same as: Esgic, Fioricet) [facility] Acetaminophen 300 MG / butalbital 50 MG / Caffeine 40 MG Oral Capsule [Fioricet] 2014-09-26 22:40:00 No Notes: (cbfidjahhgvzh-rooweittar-bydowgiq 325-50-40mg) Do not exceed 4 gm/day of acetaminophen. (Same as: Esgic, Fioricet) [facility] Promethazine 2014-09-26 16:48:00 No Notes: (Same as: Phenergan) [facility] Promethazine 2014-09-26 16:47:00 No Notes: (Same as: Phenergan) [facility] GI cocktail 2014-09-25 15:24:00 No Notes: G.I. Cocktail = antacid with simethicone 22.5 mL - lidocaine viscous 7.5 mL [facility] Glucose 50 MG/ML / Sodium Chloride 0.0769 MEQ/ML Injectable Solution 2014-09-21 05:34:00 No 1,000 mL, Rate: 125 ml/hr, Infuse over: 8 hr, Route: IV, Dosing Weight 65.455 kg, Total Volume: 1,000, Start date: 09/21/14 0:34:00, Stop date: 10/21/14 0:33:00 [facility] d50 syringe 2014-09-21 05:17:00 No 12.5 gm, 25 mL, Route: IVP, Drug Form: INJ, Dosing Weight 65.455, kg, PRN, PRN Blood Glucose Results, Start date: 09/21/14 0:17:00, Duration: 30 day, Stop date: 10/21/14 0:16:00 [facility] Ondansetron 2014-09-19 21:55:00 No Notes: (Same as: Zofran) MEDICATION WASTE Product Size: 4 mg Product Wasted: ___ mg [facility] Phenergan 2014-09-19 21:54:00 No Notes: (Sa me as: Phenergan) [facility] Oxycodone Hydrochloride 5 MG Oral Tablet 2014-09-19 21:54:00 No Notes: (Same as: Roxicodone) [facility] t 72 HR Scopolamine 0.0139 MG/HR Transdermal Patch 2014-09-18 18:0 0:00 No Notes: Change patch every 72 hours (Same as: Transde rm-Scop) [facility] Nicotine 2014-09-17 17:00:00 No 21 mg, 1 patch, Route: TOP, Drug form: ERFILM, Daily, Dosing Weight 65.455, kg, Start date: 09/17/14 12:00:00, Duration: 30 day, Stop date: 10/17/14 9:00:00 [facility] Sodium Chloride 0.154 MEQ/ML Injectable Solution 2014-09-16 17:2 2:00 No 500 mL, Rate: 25 ml/hr, Infu se over: 20 hr, Route: IV, Dosing Weight 65.455 kg, Total Volume: 500, Start date: 09/16/14 12:22:00, Duration: 1 day, Stop date: 09/17/14 12:21:00 [facility] Protonix 2014-09-16 02:00:00 No Notes: Tablet should not be chewed or crushed. (Same as: Protonix) [facility] Amitriptyline 2014-09-15 18:00:00 No Notes: (Same as: Elavil) [facility] Dilaudid 2014-09-15 15:53:00 No 1 mg, 1 mL, Route: IV, 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, Q4H, Dosing Weight 65.455, kg, PRN Pain Score 7-10, Start date: 09/15/14 10:53:00, Duration: 30 day, Stop date: 10/15/14 10:52:00 [facility] Celexa 2014-09-15 14:00:00 No Notes: (Same As: CeleXA) [facility] Hydroxyzine 2014-09-15 02:00:00 No Notes: (Same as: Atarax) Avoid alcohol. [facility] Diazepam 2014-09-14 23:00:00 No Notes: (John e as: Valium) [facility] Dilaudid 2014-09-14 18:03:00 No 2 mg, 2 mL, Route: IV, 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, Q4H, Dosing Weight 65.455, kg, PRN Pain Score 7-10, Start date: 09/14/14 13:03:00, Stop date: 10/14/14 13:02:00 [facility] Acetaminophen 325 MG / Hydrocodone Bitartrate 10 MG Or al Tablet [[place] 10/325] 2014-09-14 18:02:00 No Note s: Do not exceed 4gm/day of acetaminophen. (Same as: [place] 325/10) [facility] zolpidem 2014-09-14 18:01:00 No Notes: ([facility] e As: Ambien) [facility] Diphenhydramine 2014-09-14 16:44:00 No Notes: (Same as: Benadryl) [facility] Diazepam 2014-09-14 14:00:00 No Notes: ([facility] e as: Valium) [facility] Celexa 2014-09-14 14:00:00 No Notes: (Same As: CeleXA) [facility] Saline Flush 0.9% 2014-09-14 07:59:00 No Notes: preservative free. [facility] Sodium Chloride 0.154 MEQ/ML Injectable Solution 2014-09-14 07:5 9:00 No 1,000 mL, Rate: 60 ml/hr, In fuse over: 16.7 hr, Route: IV, Dosing Weight 60 kg, Total Volume: 1,000, Start date: 09/14/14 2:59:00, Stop date: 10/14/14 2:58:00 [facility] Ondansetron 2014-09-14 07:59:00 No Notes: (Same as: Rukhsana) MEDICATION WASTE Product Size: 4 mg Product Wasted: ___ mg [facility] Morphine 2014-09-14 07:59:00 No Not es: (Same as:MORPhine Sulfate) [facility] Dilaudid 2014-09-14 07:34:00 No 1 mg, 1 mL, Route: IVP, 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, Q6H, Dosing Weight 60, kg, PRN Pain Score 6-10, Priority: STAT, Start date: 09/14/14 2:34:00, Duration: 30 day, Stop date: 10/14/14 2:33:00 [facility] Morphine 2014-09-14 07:34:00 No Not es: (Same as:MORPhine Sulfate) [facility] Ambien 2014-09-14 07:29:00 No Notes: (Same As: Ambien) [facility] Phenergan 2014-09-14 07:26:00 No Notes: Do not give IV push. (Same as: Phenergan) [facility] Zofran 2014-09-14 07:26:00 No Notes: (Same as: Zofran) MEDICATION WASTE Product Size: 4 mg Product Wasted: ___ mg [facility] pantoprazole 2014-09-14 07:25:00 No Notes: For IV push reconstitute with 10 ml 0.9% sodium chloride and push over 2 minutes. (Same as: Protonix) [facility] normal saline 0.9% IV 1,000 mL 2014-09-14 07:25:00 No 1,000 mL, Rate: 75 ml/hr, Infuse over: 13.3 hr, Route: IV, Dosing Weight 60 kg, Total Volume: 1,000, Start date: 09/14/14 2:25:00, Duration: 30 day, Stop date: 10/14/14 2:24:00 [facility] Benadryl 2014-09-14 07:12:00 No 12.5 mg, Route: IVP, ONCE, Dosing Weight 60, kg, Priority: STAT, Start date: 09/14/14 2:12:00, Stop date: 09/14/14 2:12:00 [facility] Reglan 2014-09-14 06:31:00 No 10 mg, Route: IVP, Drug form: INJ, ONCE, Dosing Weight 60, kg, Priority: STAT, Start date: 09/14/14 1:31:00, Stop date: 09/14/14 1:31:00 [facility] Acetaminophen 325 MG / Hydrocodone Bitartrate 10 MG Or al Tablet [[place] 10/325] 2014-09-14 06:30:00 No 1-2 tab, PO, Q4-6H, PRN Pain, X 5 day, # 15 tab, 0 Refill(s) [facility] Promethazine Hydrochloride 25 MG Rectal Suppository [Phenerg an] 2014-09-14 06:30:00 No 25 mg = 1 supp, [place], Q6H, PRN Nausea & Vomiting, X 3 day, # 9 supp, 0 Refill(s) [facility] Promethazine Hydrochloride 25 MG Oral Tablet [Phenergan] 2014-09-14 06:29:00 No 25 mg = 1 tab, PO, Q 6H, PRN Nausea, X 4 day, # 15 tab, 0 Refill(s) [facility] Acetaminophen 325 MG / Hydrocodone Bitartrate 10 MG Or al Tablet [[place] 10/325] 2014-09-14 05:58:00 No 1 ta b, Route: PO, Drug Form: TAB, Dosing Weight 60, kg, ONCE, STAT, Start date: 09/14/14 0:58:00, Stop date: 09/14/14 0:58:00 [facility] Phenergan 2014-09-14 04:59:00 No Notes: Do not give IV push. (Same as: Phenergan) [facility] Dilaudid 2014-09-14 04:58:00 No 2 mg, 2 mL, Route: IVP, Drug form: INJ, ONCE, Dosing Weight 60, kg, Priority: STAT, Start date: 09/13/14 23:58:00, Stop date: 09/13/14 23:58:00 [facility] t Phenergan 2014-09-14 03:17:00 No 12.5 mg, Route: IVPB, ONCE, Dosing Weight 60, kg, Priority: STAT, Start date: 09/13/14 22:17:00, Stop date: 09/13/14 22:17:00 [facility] Sodium Chloride 0.154 MEQ/ML Injectable Solution 2014-09-14 03:1 7:00 No 1,000 mL, Infuse Over: 1 hr, Route: IV, ONCE, Priority: STAT, Dosing Weight 60 kg, Start date: 09/13/14 22:17:00, Duration: 1 doses or times, Stop date: 09/13/14 22:17:00 [facility] Saline Flush 0.9% 2014-09-14 03:17:00 No Notes: preservative free. [facility] Morphine 2014-09-14 03:17:00 No 6 mg, Route: IVP, ONCE, Dosing Weight 60, kg, Priority: STAT, Start date: 09/13/14 22:17:00, Stop date: 09/13/14 22:17:00 [facility] Acetaminophen 325 MG / Hydrocodone Bitartrate 5 MG Oral Tabl et [[place] 5/325] 2014-02-09 16:01:00 Yes 1-2 tab, PO, Q4-6H, Pain, # 12 tab, 0 Refill(s) [facility] Acetaminophen 325 MG / Hydrocodone Bitartrate 5 MG Oral Tabl et [[place] 5/325] 2014-02-09 15:08:00 No 1 tab, Route: PO, Dosing Weight 66.364, kg, ONCE, Start date: 02/09/14 10:08:00, Stop date: 02/09/14 10:08:00 [facility] Miralax 2013 14:00:00 No Notes: Dissolve in 8 oz of water or juice. (Same as: Miralax) [facility] Promethazine 2013-12-16 12:17:00 No Notes: Do not give IV push. (Same as: Phenergan) [facility] Depacon 2013-12-13 13:35:00 No Notes: Dilute in at least 50ml D5W or NS. Infusion rate = 20 mg/min (Same As: Depacon) [facility] Dextrose 50% Syringe 2013-12-12 17:48:00 No 25 gm, 50 mL, Route: IV, Drug Form: INJ, Dosing Weight 63.636, kg, PRN, PRN Blood Glucose Results, Start date: 12/12/13 12:48:00, Duration: 30 day, Stop date: 01/11/14 12:47:00 [facility] gabapentin 2013-12-12 14:30:00 No Notes: (S bhumi as: Neurontin) [facility] Protonix 2013-12-11 21:30:00 No Notes: Tablet should not be chewed or crushed. (Same as: Protonix) [facility] Dilaudid 2013-12-11 16:22:00 No 0.8 mg, 0.8 mL, Route: IV, Drug form: INJ, Q6H, Dosing Weight 63.636, kg, PRN Severe Pain, Start date: 12/11/13 11:22:00, Stop date: 01/10/14 11:21:00 [facility] Ketorolac 2013-12-11 16:21:00 No 4 days [facility] Phenergan 2013-12-11 15:09:00 No Notes: Do not give IV push. (Same as: Phenergan) [facility] Dexamethasone 2013-12-11 15:08:00 No 10 mg, 2.5 mL, Route: IVPB, Drug form: INJ, ONCE, Dosing Weight 63.636, kg, Start date: 12/11/13 10:08:00, Stop date: 12/11/13 10:08:[facility] 2013-12-11 14:00:00 No Notes: Dissolve in 8 oz of water or juice. (Same as: Miralax) [facility] Multiple Vitamins with Minerals oral tablet 2013-12-11 14:00:00 No Notes: (Same as:Thera-M, Theragran-M) Give with food. [facility] Celexa 2013-12-11 14:00:00 No Notes: (Same As: CeleXA) [facility] Diazepam 2013-12-11 11:00:00 No Notes: (John e as: Valium) [facility] zolpidem 2013-12-11 10:46:00 No 10 mg, Route: PO, Drug form: TAB, Bedtime, Dosing Weight 63.636, kg, PRN as needed for sleep, Start date: 12/11/13 5:46:00, Duration: 30 day, Stop date: 01/10/14 5:45:00 [facility] Hyoscyamine 2013-12-11 10:46:00 No Notes: (Same as: Levsin) Take 30 min before meal [facility] Chlordiazepoxide Hydrochloride 25 MG Oral Capsule 2013-12-11 10:45:00 No 25 mg, 1 cap, Route: PO, Drug form: CAP, QID, Dosing Weight 63.636, kg, PRN as needed for anxiety, Start date: 12/11/13 5:45:00, Duration: 30 day, Stop date: 01/10/14 5:44:00 [facility] Ambien 2013-12-11 04:00:00 No Notes: (Same As: Ambien) [facility] Protonix 2013-12-10 21:30:00 No Notes: For IV push reconstitute with 10 ml 0.9% sodium chloride and push over 2 minutes. (Same as: Protonix) [facility] Promethazine 2013-12-10 16:34:00 No Notes: Do not give IV push. (Same as: Phenergan) [facility] Dilaudid 2013-12-10 16:33:00 No 0.5 mg, 0.5 mL, Route: IV, Drug form: INJ, Q3H, Dosing Weight 64.545, kg, PRN Pain, Start date: 12/10/13 11:33:00, Duration: 30 day, Stop date: 01/09/14 11:32:00 [facility] D5W 1/2NS + KCL 20mEq/L 1000ml (Premix) 1,000 mL 2013-12-10 16:2 9:00 No Notes: PREMIX IV - Do Not Alter [facility] Saline Flush 0.9% 2013-12-10 16:29:00 No Notes: Same as: BD Posiflush Sterile [facility] Docusate 2013-12-10 16:29:00 No Notes: (Same as: Colace) (Do Not Crush) [facility] Acetaminophen 2013-12-10 16:29:00 No Notes: Do not exceed 4 gm/day. (Same as: Tylenol) [facility] Haldol 2013-12-07 05:47:00 No Notes: (Same as: Haldol) [facility] Lorazepam 2013-12-07 05:46:00 No Notes: (Sa me as: Ativan) [facility] Valproic Acid 100 MG/ML Injectable Solution 2013-12-07 04:44:00 No Notes: Dilute in at least 50ml D5W or NS. Infusion rate = 20 mg/min (Same As: Depacon) [facility] Metoclopramide 2013-12-07 04:44:00 No Notes : (Same as: Reglan) [facility] Diphenhydramine 2013-12-07 04:44:00 No Notes: (Same as: Benadryl) [facility] Ketorolac 2013-12-07 04:43:00 No 4 days [facility] Sodium Chloride 0.154 MEQ/ML Injectable Solution 2013-12-07 04:4 3:00 No 1,000 mL, 1,000 ml/hr, Infus e Over: 1 hr, Route: IV, 1,000, Drug form: INJ, ONCE, Priority: STAT, Dosing Weight 64.545 kg, Start date: 12/06/13 23:43:00, Duration: 1 doses or times, Stop date: 12/06/13 23:43:00 [facility] pantoprazole 2013-09-24 14:00:00 No Notes: Tablet should not be chewed or crushed. (Same as: Protonix) [facility] promethazine 25 mg rectal suppository 2013-09-24 12:15:28 Y es 25 mg = 1 supp, [place], Q4H, Nausea & Vomiting, # 10 supp, 0 Refill(s) [facility] Acetaminophen 325 MG / Hydrocodone Bitartrate 10 MG Or al Tablet [[place] 10/325] 2013-09-24 12:14:56 Yes 1 ta b, PO, Q4H, for pain, # 50 tab, 0 Refill(s) [facility] Zantac 300 2013-09-24 02:00:00 No 300 mg, Route: PO, Drug form: TAB, Bedtime, Dosing Weight 65.455, kg, Start date: 09/23/13 21:00:00, Duration: 30 day, Stop date: 10/22/13 21:00:00 [facility] Pepcid 2013-09-24 02:00:00 No Notes: (Same as: Pepcid) [facility] Ativan 2013-09-24 01:42:00 No Notes: (Same as: Ativan) [facility] Phenergan 2013-09-23 22:34:00 No Notes: (Sa me as: Phenergan) [facility] Acetaminophen 325 MG / Hydrocodone Bitartrate 5 MG Oral Tabl et [[place] 5/325] 2013-09-23 11:43:00 No Notes: (Same as: [place] 325/5) Do not exceed 4gm/day of acetaminophen. [facility] magnesium citrate 2013-09-21 22:59:00 No Notes: (Same as: Citrate of Magnesia) [facility] pantoprazole 2013-09-21 12:30:00 No Notes: Tablet should not be chewed or crushed. (Same as: Protonix) [facility] Ativan 2013-09-21 11:18:00 No Notes: (Same as: Ativan) [facility] Dextrose 50% Syringe 2013-09-20 18:48:00 No 25 gm, 50 mL, Route: IV, Drug Form: INJ, Dosing Weight 65.455, kg, PRN, PRN Blood Glucose Results, Start date: 09/20/13 13:48:00, Duration: 30 day, Stop date: 10/20/13 13:47:00, blood sugar <50 [facility] Phenergan 2013-09-20 02:43:00 No Notes: Do not give IV push. (Same as: Phenergan) [facility] Miralax 2013-09-19 22:05:00 No Notes: Dissolve in 8 oz of water or juice. (Same as: Miralax) [facility] Phenergan 2013-09-19 22:05:00 No Notes: (Sa me as: Phenergan) [facility] Protonix 2013-09-19 14:00:00 No Notes: For IV push reconstitute with 10 ml 0.9% sodium chloride and push over 2 minutes. (Same as: Protonix) [facility] Celexa 2013-09-19 14:00:00 No Notes: (Same As: CeleXA) [facility] Phenergan 2013-09-19 10:53:00 No Notes: Do not give IV push. (Same as: Phenergan) [facility] Phenergan 2013-09-19 02:15:00 No Notes: Do not give IV push. (Same as: Phenergan) [facility] Chlordiazepoxide Hydrochloride 25 MG Oral Capsule 2013-09-19 02:00:00 No 25 mg, 1 cap, Route: PO, Drug form: CAP, QID, Dosing Weight 65.455, kg, Start date: 09/18/13 21:00:00, Duration: 30 day, Stop date: 10/18/13 17:00:00 [facility] Ambien 2013-09-19 02:00:00 No Notes: (Same As: Ambien) [facility] Hydroxyzine 2013-09-19 01:57:00 No Notes: ( Same as: Vistaril) [facility] Temazepam 2013-09-18 21:46:00 No Notes: (Sa me As: Restoril) [facility] Dilaudid 2013-09-18 21:45:00 No 1 mg, 1 mL, Route: IV, Drug form: INJ, Q3H, Dosing Weight 69.545, kg, PRN Pain Score 7-10, Start date: 09/18/13 16:45:00, Duration: 30 day, Stop date: 10/18/13 16:44:00 [facility] Acetaminophen 2013-09-18 21:39:00 No Notes: Do not exceed 4 gm/day. (Same as: Tylenol) [facility] Docusate 2013-09-18 21:39:00 No Notes: (Same as: Colace) (Do Not Crush) [facility] Saline Flush 0.9% 2013-09-18 21:39:00 No Notes: (Same as: BD Posiflush) [facility] D5W 1/2NS + KCL 20mEq/L 1000ml (Premix) 1,000 mL 2013-09-18 21:3 9:00 No Notes: PREMIX IV - Do Not Alter [facility] Acetaminophen 325 MG / Hydrocodone Bitartrate 10 MG Or al Tablet [[place] 10/325] 2013-09-13 08:03:00 Yes 1 ta b, PO, Q4H, for pain, # 50 tab, 0 Refill(s) [facility] Acetaminophen 65 MG/ML / Oxycodone Hydrochloride 1 MG/ML Ora l Solution 2013-09-13 08:02:00 Yes 5 ml, PO, Q4H, for pain, # 480 mL, 0 Refill(s) [facility] Acetaminophen 65 MG/ML / Oxycodone Hydrochloride 1 MG/ML Ora l Solution 2013-09-13 07:57:00 Yes 5 ml, PO, Q4H, for pain, # 480 mL, 0 Refill(s) [facility] Ciprofloxacin 500 MG Oral Tablet [Cipro] 2013-09-13 07:57:00 Yes 500 mg = 1 tab, PO, Q12H, # 28 tab, 0 Refill(s) [facility] Acetaminophen 325 MG / Hydrocodone Bitartrate 5 MG Oral Tabl et [[place] 5/325] 2013-09-13 07:44:00 No 1 tab, Route: PO, Dosing Weight 69.545, kg, ONCE, Start date: 09/13/13 2:44:00, Stop date: 09/13/13 2:44:00 [facility] Acetaminophen 33.3 MG/ML / Hydrocodone Bitartrate 0.5 MG/ML Oral Solution 2013-09-13 06:12:00 Yes 15 ml, PO, Q4H, for pain, # 60 mL, 0 Refill(s) [facility] Ondansetron 8 MG Disintegrating Tablet [Zofran] 2013-09-13 06:11 :00 Yes Special Instructions: Dissolve tab under tongue [facility] promethazine 50 mg rectal suppository 2013-09-13 06:11:00 Y es 50 mg = 1 supp, [place], Q6H, Nausea & Vomiting, # 12 supp, 0 Refill(s) [facility] Ciprofloxacin 2013-09-13 05:15:00 No Notes: Do not refrigerate [facility] Sodium Chloride 0.154 MEQ/ML Injectable Solution 2013-09-13 04:3 4:00 No 1,000 mL, 1,000 ml/hr, Infus e Over: 1 hr, Route: IV, 1,000, Drug form: INJ, ONCE, Priority: STAT, Dosing Weight 69.545 kg, Start date: 09/12/13 23:34:00, Duration: 1 doses or times, Stop date: 09/12/13 23:34:00 [facility] d50 syringe 2013-09-13 04:34:00 No Special Instructions: 25 ml = 12.5 gm [facility] Dilaudid 2013-09-13 04:00:00 No 0.5 mg, 0.5 mL, Route: IV, Drug form: INJ, Q3H, Dosing Weight 69.545, kg, Start date: 09/12/13 23:00:00, Duration: 30 day, Stop date: 10/12/13 20:00:00 [facility] Promethazine 2013-09-13 01:51:00 No Notes: Do not give IV push. (Same as: Phenergan) [facility] Ondansetron 2013-09-13 01:51:00 No Notes: ( Same as: Zofran) [facility] Sodium Chloride 0.154 MEQ/ML Injectable Solution 2013-09-13 01:5 0:00 No 1,000 mL, 1,000 ml/hr, Infus e Over: 1 hr, Route: IV, 1,000, Drug form: INJ, ONCE, Priority: STAT, Dosing Weight 69.545 kg, Start date: 09/12/13 20:50:00, Duration: 1 doses or times, Stop date: 09/12/13 20:50:00 [facility] Famotidine 2013-09-13 01:43:00 No Notes: (Same as: Pepcid) Can be dilute in 5-10cc NS IVP: Slow IV push over at least 2 minutes. [facility] Acetaminophen 325 MG / Hydrocodone Bitartrate 10 MG Oral Tab let 2013-09-10 10:39:00 Yes 1 tab, PO, Q4H, Pain Sc ore 4-6, # 10 tab, 0 Refill(s) [facility] promethazine 25 mg rectal suppository 2013-09-10 10:39:00 Y es 25 mg = 1 supp, [place], Q4H, Nausea & Vomiting, # 10 supp, 0 Refill(s) [facility] Ondansetron 0.8 MG/ML Oral Solution [Zofran] 2013-09-09 21:33:00 No Notes: (Same as: Zofran ODT) [facility] t Phenergan 2013-09-09 21:33:00 No Notes: ([facility] as: Phenergan) [facility] Thiamine 2013-09-09 14:00:00 No Notes: ([facility] e As: Vitamin B1) [facility] Metoclopramide 10 MG Oral Tablet [Reglan] 2013-09-08 16:30:00 No Notes: (Same as: Reglan) Take 30 min before meals [facility] promethazine 12.5 mg rectal suppository 2013-09-07 12:55:00 Yes 12.5 mg = 1 supp, [place], Q4H, Nausea & Vomiting, # 12 can, 0 Refill(s) [facility] Phenergan 2013-09-07 12:51:00 No Notes: ([facility] as: Phenergan) [facility] Protonix 2013-09-06 14:00:00 No Notes: Tablet should not be chewed or crushed. (Same as: Protonix) [facility] Actigall 2013-09-06 02:00:00 No Notes: ([facility] e As: Actigall) [facility] hydrocortisone acetate 25 MG Rectal Suppository [Anusol HC] 2013-09-05 22:00:00 No Notes: (Same as: Anusol-HC, H emorrhoidal HC) [facility] Metronidazole 500 MG Oral Tablet 2013-09-05 19:00:00 No Notes: (Same as: Flagyl) Take with food/ avoid alcohol [facility] Sodium Chloride 0.154 MEQ/ML Injectable Solution 2013-09-05 17:0 9:00 No 1,000 mL, Rate: 25 ml/hr, In fuse over: 40 hr, Route: IV, Dosing Weight 67.273 kg, Total Volume: 1,000, Start date: 09/05/13 12:09:00, Duration: 1 day, Stop date: 09/06/13 12:08:00 [facility] D5NS 1,000 mL 2013-09-05 01:05:00 No 1,000 mL, Rate: 125 ml/hr, Infuse over: 8 hr, Route: IV, Dosing Weight 67.273 kg, Total Volume: 1,000, Start date: 09/04/13 20:05:00, Duration: 30 day, Stop date: 10/04/13 20:04:00 [facility] Golytely 2013-09-04 14:11:00 No Notes: (polyethylene glycol electrolyte solution 4 Liter bottle) (Same as: Justice Teixeira) [facility] Miralax 2013-09-03 17:48:00 No Notes: Dissolve in 8 oz of water or juice. (Same as: Miralax) [facility] Docusate Sodium 100 MG Oral Capsule 2013-09-03 17:48:00 No 100 mg, 1 cap, Route: PO, Drug form: CAP, BID, Dosing Weight 67.273, kg, PRN Constipation, Start date: 09/03/13 12:48:00, Duration: 30 day, Stop date: 10/03/13 12:47:00 [facility] Protonix 2013-09-03 14:00:00 No Notes: For IV push reconstitute with 10 ml 0.9% sodium chloride and push over 2 minutes. (Same as: Protonix) [facility] Hydroxyzine 2013-09-03 02:00:00 No Notes: (Same as: Atarax) Avoid alcohol. [facility] Ambien 2013-09-03 02:00:00 No Notes: (Same As: Ambien) [facility] Benadryl 2013-09-02 22:42:00 No Notes: (John e as: Benadryl) [facility] Hyoscyamine 2013-09-02 22:41:00 No Notes: (Same as: Levsin) Take 30 min before meal [facility] Dilaudid 2013-09-02 22:35:00 No 1 mg, 1 mL, Route: IV, Drug form: INJ, Q4H, Dosing Weight 67.273, kg, PRN Pain Score 7-10, Start date: 09/02/13 17:35:00, Duration: 30 day, Stop date: 10/02/13 17:34:00 [facility] Diazepam 2013-09-02 17:00:00 No Notes: (John e as: Valium) [facility] Potassium Chloride 20 MEQ Extended Release Tablet 2013-09-02 14:00:00 No Notes: (Same as: K-D ur 20) "Do Not Crush" With food and full glass of water [facility] Ascorbic Acid / Beta Carotene / cuprous oxide / Lutein / sodium selenate / Vitamin E / Zinc Oxide 2013-09-02 14:00:00 No Notes: (Same as:Thera- M, Theragran-M) Give with food. [facility] Celexa 2013-09-02 14:00:00 No Notes: (Same As: CeleXA) [facility] promethazine 25 mg oral tablet 2013-09-02 13:45:00 No 25 mg = 1 tab, PO, Q6H, Nausea & Vomiting, # 15 tab, 0 Refill(s) [facility] zolpidem 10 mg oral tablet 2013-09-02 13:45:00 Yes 10 mg = 1 tab, PO, Bedtime, for sleep, 0 Refill(s) [facility] Miralax 2013-09-02 13:45:00 Yes 17 gm, PO, D aily, 0 Refill(s) [facility] hyoscyamine 0.125 mg sublingual tablet 2013-09-02 13:45:00 Yes 0.125 mg = 1 tab, SL, Q6H, GI Upset, 0 Refill(s) [facility] Phenergan 2013-09-02 13:32:00 No Notes: Do not give IV push. (Same as: Phenergan) [facility] Ondansetron 2013-09-02 13:21:00 No Notes: ( Same as: Zofran) [facility] Morphine 2013-09-02 13:21:00 No Not es: (Same as:MORPhine Sulfate) [facility] Docusate 2013-09-02 13:21:00 No Notes: (Same as: Colace) (Do Not Crush) [facility] Saline Flush 0.9% 2013-09-02 13:21:00 No Notes: (Same as: BD Posiflush) [facility] Sodium Chloride 0.0769 MEQ/ML Injectable Solution 2013-09-02 13:21:00 No 1,000 mL, Rate: 125 ml/hr, Infuse over: 8 hr, Route: IV, Dosing Weight 67.273 kg, Total Volume: 1,000, Start date: 09/02/13 8:21:00, Duration: 30 day, Stop date: 10/02/13 8:20:00 [facility] Acetaminophen 2013-09-02 13:21:00 No Notes: Max acetaminophen = 4000mg/day (4 gm/day). (Same as: Tylenol) [facility] Acetaminophen 325 MG / Hydrocodone Bitartrate 10 MG Oral Tab let 2013-09-02 13:21:00 No Notes: Do not exceed 4gm/day of acetaminophen. (Same as: [place] 325/10) [facility] Acetaminophen 325 MG / Hydrocodone Bitartrate 5 MG Oral Tabl et 2013-09-02 13:21:00 No Notes: (Sa me as: [place] 325/5) Do not exceed 4gm/day of acetaminophen. [facility] Chlordiazepoxide Hydrochloride 25 MG Oral Capsule 2013-09-02 12:30:00 No 25 mg, 1 cap, Route: PO, Drug form: CAP, QID, Dosing Weight 67.273, kg, PRN as needed for anxiety, Start date: 09/02/13 7:30:00, Duration: 30 day, Stop date: 10/02/13 7:29:00 [facility] normal saline 0.9% IV 1,000 mL 2013-09-02 12:29:00 No 1,000 mL, Rate: 125 ml/hr, Infuse over: 8 hr, Route: IV, Dosing Weight 67.273 kg, Total Volume: 1,000, Start date: 09/02/13 7:29:00, Duration: 30 day, Stop date: 10/02/13 7:28:00 [facility] Zofran 2013-09-02 09:03:00 No 4 mg, Route: IVP, Drug form: INJ, ONCE, Dosing Weight 67.273, kg, Priority: STAT, Start date: 09/02/13 4:03:00, Stop date: 09/02/13 4:03:00 [facility] Promethazine Hydrochloride 25 MG Oral Tablet [Phenergan] 2013-09-02 08:42:00 No 25 mg = 1 tab, PO, Q4H, Nausea, # 15 tab, 0 Refill(s) [facility] Dilaudid 2013-09-02 07:49:00 No 1 mg, Route: IV, ONCE, Dosing Weight 67.273, kg, Start date: 09/02/13 2:49:00, Stop date: 09/02/13 2:49:00 [facility] Phenergan 2013-09-02 07:49:00 No 12.5 mg, Route: IVPB, ONCE, Dosing Weight 67.273, kg, Priority: STAT, Start date: 09/02/13 2:49:00, Stop date: 09/02/13 2:49:00 [facility] Hydromorphone 2013-09-02 05:51:00 No 1 mg, Route: IVP, ONCE, Dosing Weight 67.273, kg, Priority: STAT, Start date: 09/02/13 0:51:00, Stop date: 09/02/13 0:51:00 [facility] Phenergan 2013-09-02 04:58:00 No Notes: Do not give IV push. (Same as: Phenergan) [facility] Sodium Chloride 0.154 MEQ/ML Injectable Solution 2013-09-02 04:5 8:00 No 1,000 mL, 1000 ml/hr, Infuse Over: 1 hr, Route: IV, 1,000, Drug form: INJ, ONCE, Priority: STAT, Dosing Weight 67.273 kg, Start date: 09/01/13 23:58:00, Duration: 1 doses or times, Stop date: 09/01/13 23:58:00 [facility] Saline Flush 0.9% 2013-09-02 04:58:00 No Notes: (Same as: BD Posiflush) [facility] pantoprazole 40 mg oral enteric coated tablet 2013-09-01 11:54:0 0 Yes 40 mg = 1 tab, PO, Daily, # 30 tab, 0 Refill(s) [facility] promethazine 6.25 mg/5 mL oral syrup 2013-09-01 11:53:00 Ye s 18.75 mg = 15 mL, PO, QID, as needed for nausea/vomiting, # 500 mL, 0 Refill(s) [facility] Ondansetron 2013-09-01 11:29:00 No Notes: ( Same as: Zofran ODT) [facility] Acetaminophen 325 MG / Hydrocodone Bitartrate 10 MG Oral Tab let 2013-09-01 11:29:00 No Notes: Do not exceed 4gm/day of acetaminophen. (Same as: [place] 325/10) [facility] Solu-Medrol 2013-09-01 07:45:00 No Notes: (Same as:Solu-MEDROL, A-Methapred) [facility] Diphenhydramine 2013-09-01 07:45:00 No Notes: (Same as: Benadryl) [facility] Metoclopramide 2013-09-01 05:43:00 No Notes : (Same as: Reglan) [facility] Ondansetron 2013-09-01 05:43:00 No Notes: ( Same as: Zofran) [facility] Hydromorphone 2013-09-01 05:43:00 No 0.5 mg, 0.5 mL, Route: IVP, Drug form: INJ, ONCE, Dosing Weight 63.636, kg, Priority: STAT, Start date: 09/01/13 0:43:00, Stop date: 09/01/13 0:43:00 [facility] Sodium Chloride 0.154 MEQ/ML Injectable Solution 2013-09-01 05:4 3:00 No 1,000 mL, 1,000 ml/hr, Infus e Over: 1 hr, Route: IV, 1,000, Drug form: INJ, ONCE, Priority: STAT, Dosing Weight 63.636 kg, Start date: 09/01/13 0:43:00, Duration: 1 doses or times, Stop date: 09/01/13 0:43:00 [facility] albuterol 90 mcg/inh inhalation aerosol 2013-06-10 16:44:0 0 Yes Campos Terminella 2 puff, INHALATION, QID, wheezing, # 1 can, 0 Refill(s) [facility] DuoNeb inhalation solution 2013-06-10 16:44:00 Yes Campos Terminella 3 ml, INHALATION, QID, Wheezing, # 60 ea, 0 Refill(s) [facility] docusate sodium 100 mg oral capsule 2013-06-10 15:58:00 Yes Kaylee Houstoneen Jim 100 mg = 1 cap, PO, Daily, as needed for constipation, # 100 cap, 3 Refill(s) [facility] polyethylene glycol 3350 oral powder for reconstitution 2013-06-10 15:58:00 Yes Kaylee Jarvis Jim 17 gm, PO, BID, # 527 gm, 1 Refill(s) [facility] predniSONE 2013-06-10 15:00:00 No Enayet Rahim 40 mg, 2 tab, Route: PO, Drug form: TAB, Daily, Dosing Weight 66.364, kg, Start date: 06/10/13 9:00:00, Duration: 30 day, Stop date: 07/09/13 9:00:00Take with food. [facility] Nebulizer 2013-06-10 12:32:00 Yes Enayet Rahim 1 ea, MISC, ONCALL, # 1 ea, 0 Refill(s) [facility] zolpidem 10 mg oral tablet 2013-06-10 12:32:00 Yes Enaye t Rahim 10 mg = 1 tab, PO, Bedtime, # 7 tab, 0 Refill(s) [facility] predniSONE 20 mg oral tablet 2013-06-10 12:32:00 Yes Jenny yet Rahim 40 mg = 2 tab, PO, Daily, # 10 tab, 0 Refill(s) [facility] levofloxacin 750 mg oral tablet 2013-06-10 12:32:00 Yes Enayet Rahim 750 mg = 1 tab, PO, Daily, # 5 tab, 0 Refill(s) [facility] Promethazine DM oral syrup 2013-06-10 12:32:00 Yes Enaye t Rahim 5 mL, PO, Q6H, for cough, # 30 mL, 0 Refill(s) [facility] Bentyl 2013-06-10 03:00:00 No Kaylee Jarvis Jim 10 mg, 1 cap, Route: PO, Drug form: CAP, QID, Dosing Weight 66.364, kg, Start date: 06/09/13 21:00:00, Duration: 30 day, Stop date: 07/09/13 17:00:00(Same as: Celia) [facility] Levaquin 2013-06-10 03:00:00 No Enayet Rahim 500 mg, 2 tab, Route: PO, Drug form: TAB, Daily, Dosing Weight 66.364, kg, Start date: 06/09/13 21:00:00, Duration: 30 day, Stop date: 07/08/13 21:00:00Do not give w/antacids, dairy pdt & minerals Take 1 hr before or 2 hr after dairy pdt (Same as:Levaquin) [facility] MiraLax 2013-06-09 15:00:00 No Sri Matheus Jim 17 gm, 1 pkt, Route: PO, Drug form: PWDR, BID, Dosing Weight 66.364, kg, Start date: 06/09/13 9:00:00, Duration: 30 day, Stop date: 07/08/13 17:00:00Dissolve in 8 oz of water or juice. (Same as: Miralax) [facility] Colace 100 mg oral capsule 2013-06-09 03:00:00 No S shen Jarvis Jim 100 mg, 1 cap, Route: PO, Drug form: CAP , Bedtime, Dosing Weight 66.364, kg, Start date: 06/08/13 21:00:00, Duration: 30 day, Stop date: 07/07/13 21:00:00(Same as: Colace) (Do Not Crush) [facility] Dilaudid 2013-06-08 16:35:00 No Enayet Rahim 1 mg, 1 mL, Route: IV, Drug form: INJ, Q6H, Dosing Weight 66.364, kg, PRN Pain Score 6-10, Start date: 06/08/13 10:35:00, Duration: 30 day, Stop date: 07/08/13 10:34:00 [facility] hydromorphone 2013-06-08 06:54:00 No Enayet Rahim 2 mg, 2 mL, Route: IVP, Drug form: INJ, ONCE, Dosing Weight 66.364, kg, Priority: STAT, Start date: 06/08/13 0:54:00, Stop date: 06/08/13 0:54:00 [facility] Flonase 0.05 mg/inh nasal spray 2013-06-07 15:00:00 No Morgan Romo 2 inhalation, Route: Each Affected Nostril, Drug Form: SPRY, Dosing Weight 66.364, kg, Daily, Start date: 06/07/13 9:00:00, Duration: 30 day, Stop date: 07/06/13 9:00:00(Same as: Flonase) [facility] CeleXA 2013-06-06 15:00:00 No Campos Terminella 40 mg, 2 tab, Route: PO, Drug form: TAB, QAM, Dosing Weight 66.364, kg, Start date: 06/06/13 9:00:00, Duration: 30 day, Stop date: 07/05/13 9:00:00(Same As: CeleXA) [facility] Ambien 2013-06-06 06:35:00 No Enayet Rahim 10 mg, 1 tab, Route: PO, Drug form: TAB, ONCE, Start date: 06/06/13 0:35:00, Stop date: 06/06/13 0:35:00(Same As: Ambien) [facility] Fioricet oral tablet 2013-06-06 03:06:00 No Enayet Rahi m 1 tab, Route: PO, Drug Form: TAB, Dosing Weight 66.364, kg, Q4H, PRN Headache, Start date: 06/05/13 21:06:00, Duration: 30 day, Stop date: 07/05/13 21:05:00([id number] 325-50-40mg) Do not exceed 4 gm/day of acetaminophen. (Same as: Esgic, Fioricet) [facility] zolpidem 2013-06-06 03:00:00 No Enayet Rahim 10 mg, 1 tab, Route: PO, Drug form: TAB, Bedtime, Dosing Weight 66.364, kg, Start date: 06/05/13 21:00:00, Duration: 30 day, Stop date: 07/04/13 21:00:00(Same As: Ambien) [facility] hydrOXYzine 2013-06-06 03:00:00 No Campos Terminella 25 mg, 1 tab, Route: PO, Drug form: TAB, Bedtime, Dosing Weight 66.364, kg, Start date: 06/05/13 21:00:00, Duration: 30 day, Stop date: 07/04/13 21:00:00(Same as: Atarax) Avoid alcohol. [facility] Tamiflu 2013-06-06 03:00:00 No Campos Terminella 75 mg, 1 cap, Route: PO, Drug form: CAP, [id number], Dosing Weight 66.364, kg, Start date: 06/05/13 21:00:00, Duration: 10 doses or times, Stop date: 06/10/13 9:00:00Take with food. Same as: Tamiflu) [facility] chlordiazePOXIDE 25 mg oral capsule 2013-06-06 01:45:00 No Campos Terminella 25 mg, 1 cap, Route: PO, Drug form: CAP, QID, Dosing Weight 66.364, kg, PRN Anxiety, Start date: 06/05/13 19:45:00, Duration: 30 day, Stop date: 07/05/13 19:44:00 [facility] Solu-MEDROL 2013-06-06 00:00:00 No Enayet Rahim 20 mg, 0.5 mL, Route: IVP, Drug form: INJ, [id number], Dosing Weight 67.727, kg, Start date: 06/05/13 18:00:00, Stop date: 07/05/13 6:00:00(Same as:Solu-MEDROL, A-Methapred) [facility] albuterol 2013-06-05 22:04:00 No Enayet Rahim 1.25 mg, 3 mL, Route: NEB, Drug form: SOLN, PRN, PRN Respiratory Protocol, Start date: 06/05/13 16:04:00, Duration: 30 day, Stop date: 07/05/13 16:03:00SEE RT DOCUMENTATION (Same as: Proventil) [facility] levofloxacin 750 mg oral tablet 2013-06-05 20:55:00 No Enayet Rahim 750 mg = 1 tab, PO, Daily, # 10 tab, 0 Refill(s) [facility] predniSONE 5 mg oral tablet 2013-06-05 20:55:00 No 5 mg = 1 tab, PO, TID, # 21 tab, 0 Refill(s) [facility] chlordiazePOXIDE 25 mg oral capsule 2013-06-05 20:55:00 Yes Campos Terminella 25 mg = 1 cap, PO, QID, Anxiety, # 60 ca p, 0 Refill(s) [facility] Promethazine DM oral syrup 2013-06-05 20:55:00 No Enaye t Rahim 5 ml, PO, Q6H, for cough, # 120 ml, 0 Refill(s) [facility] acetaminophen 2013-06-05 20:49:00 No Enayet Rahim 650 mg, 2 tab, Route: PO, Drug form: TAB, Q4H, Dosing Weight 67.727, kg, PRN Pain 1-3/Temp > 100.4 F, Start date: 06/05/13 14:49:00, Duration: 30 day, Stop date: 07/05/13 14:48:00Do not exceed 4 gm/day. (Same as: Tylenol) [facility] D5W 1/2NS + KCL 20mEq/L 1000ml (Premix) 1000 mL 2013-06-05 20:49:00 No Enayet Rahim 1,000 mL, Rate: 100 ml/hr, Infuse over: 10 hr, Route: IV, Dosing Weight 67.727 kg, Total Volume: 1,000, Start date: 06/05/13 14:49:00, Duration: 30 day, Stop date: 07/05/13 14:48:00 [facility] docusate 2013-06-05 20:49:00 No Enayet Rahim 100 mg, 1 cap, Route: PO, Drug form: CAP, BID, Dosing Weight 67.727, kg, PRN as needed for constipation, Start date: 06/05/13 14:49:00, Duration: 30 day, Stop date: 07/05/13 14:48:00(Same as: Colace) (Do Not Crush) [facility] Saline Flush 0.9% 2013-06-05 20:49:00 No Enayet Rahim 5 ml, Route: IVP, Drug Form: INJ, Dosing Weight 67.727, kg, PRN, PRN Line Flush, Start date: 06/05/13 14:49:00, Duration: 30 day, Stop date: 07/05/13 14:48:00Same as: BD Posiflush Sterile [facility] Restoril 2013-06-05 18:03:00 No Enayet Rahim 30 mg, 2 cap, Route: PO, Drug form: CAP, Bedtime, Dosing Weight 67.727, kg, PRN Sleep, Start date: 06/05/13 12:03:00, Duration: 30 day, Stop date: 07/05/13 12:02:00(Same As: Restoril) [facility] normal saline 0.9% IV 1,000 mL 2013-06-05 18:02:00 No E nayet Rahim 1,000 mL, Rate: 125 ml/hr, Infuse over: 8 hr, Route: IV, Dosing Weight 67.727 kg, Total Volume: 1,000, Start date: 06/05/13 12:02:00, Duration: 30 day, Stop date: 07/05/13 12:01:00 [facility] Robitussin-AC oral syrup 2013-06-05 18:02:00 No Enayet Rahim 5 ml, Route: PO, Drug Form: LIQ, Dosing Weight 67.727, kg, Q4H, PRN Cough/Congestion, Start date: 06/05/13 12:02:00, Duration: 30 day, Stop date: 07/05/13 12:01:00(Same As: Robitussin AC) [facility] Levaquin 2013-06-05 18:00:00 No Enayet Rahim 500 mg, 100 mL, Route: IVPB, Drug form: INJ, [id number], Dosing Weight 67.727, kg, Start date: 06/05/13 12:00:00, Duration: 30 day, Stop date: 07/04/13 20:00:00(Same as:Levaquin) [facility] Xopenex 2013-06-05 17:57:00 No Enayet Rahim 0.63 mg, Route: NEB, PRN, Dosing Weight 67.727, kg, PRN Respiratory Protocol, Start date: 06/05/13 11:57:00, Duration: 30 day, Stop date: 07/05/13 11:56:00 [facility] prochlorperazine 10 mg oral tablet 2013-02-12 09:47:23 Yes Ama Trotter Rice 10 mg, 1 tab, PO , BID, PRN, 10 tab, Headache, Substitution Allowed, TAB [facility] NS (Bolus) IV 500 mL 2013-02-12 08:55:00 No Christion G regory Rice 500 mL, Rate: 500 ml/hr, Infuse over: 1 hr, Route: IV, Dosing Weight 67.727 kg, Total Volume: 500, Priority: STAT, Start date: 02/12/13 3:55:00, Duration: 1 doses or times, Stop date: 02/12/13 4:54:00, Bolus DoseBolus Dose [facility] Benadryl 2013-02-12 08:43:00 No Christion Sergo Rice 25 mg, Route: IVP, ONCE, Dosing Weight 67.727, kg, Priority: STAT, Start date: 02/12/13 3:43:00, Stop date: 02/12/13 3:43:00 [facility] Reglan 2013-02-12 08:43:00 No Christion Sergo Rice 10 mg, Route: IVP, Drug form: INJ, ONCE, Dosing Weight 67.727, kg, Priority: STAT, Start date: 02/12/13 3:43:00, Stop date: 02/12/13 3:43:00 [facility] Dilaudid 2013-02-12 05:43:00 No Christion Sergo Rice 1 mg, Route: IV, ONCE, Dosing Weight 67.727, kg, Start date: 02/12/13 0:43:00, Stop date: 02/12/13 0:43:00 [facility] GI cocktail 2013-02-12 05:40:00 No Christion Sergo Ri ce 30 mL, Route: PO, Dosing Weight 67.727, kg, ONCE, STAT, Start date: 02/12/13 0:40:00, Stop date: 02/12/13 0:40:00 [facility] Dilaudid 2013-02-12 04:52:00 No Christion Sergo Rice 1 mg, Route: IV, ONCE, Dosing Weight 67.727, kg, Start date: 02/11/13 23:52:00, Stop date: 02/11/13 23:52:00 [facility] morphine Sulfate 2013-02-12 03:12:00 No Christion Master ry Rice 4 mg, Route: IVP, Drug form: INJ, ONCE, Dosing Weight 67.727, kg, Priority: STAT, Start date: 02/11/13 22:12:00, Stop date: 02/11/13 22:12:00 [facility] ondansetron 2013-02-12 03:12:00 No Ama Trotter Ri ce 4 mg, Route: IVP, Drug form: INJ, ONCE, Dosing Weight 67.727, kg, Priority: STAT, Start date: 02/11/13 22:12:00, Stop date: 02/11/13 22:12:00 [facility] Lactated Ringers Injection IV 1,000 mL 2013-02-12 03:12:00 No Ama Trotter Rice 1,000 mL, Rate: 1,000 ml/hr, Infuse over: 1 hr, Route: IV, Dosing Weight 67.727 kg, Total Volume: 1,000, Bolus infusion, Priority: STAT, Start date: 02/11/13 22:12:00, Duration: 1 doses or times, Stop date: 02/11/13 23:11:00 [facility] Cipro 750 mg oral tablet 2012-09-28 07:08:07 Yes John Vern musa Navas 750 mg, 1 tab, PO, Q12H, 6 tab, Substitution Allowed [facility] Dilaudid 2012-09-28 06:27:00 No John Ciaran Navas 1 mg, 0.5 mL, Route: IV, Drug form: INJ, ONCE, Dosing Weight 64.545, kg, Start date: 09/28/12 1:27:00, Stop date: 09/28/12 1:27:00 [facility] Dilaudid 2012-09-28 05:16:00 No John Ciaran Navas 1 mg, 0.5 mL, Route: IV, Drug form: INJ, ONCE, Dosing Weight 64.545, kg, Start date: 09/28/12 0:16:00, Stop date: 09/28/12 0:16:00 [facility] NS (Bolus) IV 1,000 mL 2012-09-28 05:15:00 No John Brynn r Navas 1,000 mL, Rate: 1,000 ml/hr, Infuse over: 1 hr, Route: IV, Dosing Weight 64.545 kg, Total Volume: 1,000, Priority: STAT, Start date: 09/28/12 0:15:00, Duration: 1 doses or times, Stop date: 09/28/12 1:14:00, Bolus DoseBolus Dose [facility] morphine Sulfate 2012-09-28 05:15:00 No John Ciaran Meht a 4 mg, Route: IVP, ONCE, Dosing Weight 64.545, kg, Start date: 09/28/12 0:15:00, Stop date: 09/28/12 0:15:00 [facility] Tylenol 2012-09-28 03:12:00 No John Ciaran Navas 975 mg, 3 tab, Route: PO, Drug form: TAB, ONCE, Dosing Weight 64.545, kg, Priority: STAT, Start date: 09/27/12 22:12:00, Stop date: 09/27/12 22:12:00 [facility] oral tablet 2012-09-28 02:39:16 Yes 1 tab, PO, Daily, Substitution Allowed, Maintenance [facility] magnesium sulfate 2012-09-28 02:35:00 No John Ciaran Aayush ta 2 gm, 50 mL, Route: IVPB, Drug form: INJ, ONCE, Dosing Weight 64.545, kg, Total dose = 2 gm, Start date: 09/27/12 21:35:00, Duration: 1 doses or times, Stop date: 09/27/12 21:35:[address] [facility] [address] diazepam 2012-09-28 02:17:00 No John Ciaran Navas 10 mg, 1 tab, Route: PO, Drug form: TAB, ONCE, Dosing Weight 64.545, kg, Priority: STAT, Start date: 09/27/12 21:17:00, Stop date: 09/27/12 21:17:00 [facility] Celexa 2012-09-28 02:13:31 Yes 20 mg , PO, QAM, Substitution Allowed [facility] Atarax 25 mg oral tab 2012-09-28 02:13:24 Yes 25 mg, 1 tab, PO, Bedtime, Substitution Allowed [facility] Ambien 2012-09-28 02:12:48 No Substitution Allowed [facility] ondansetron 2 mg/mL injectable solution 2012-08-11 12:58:0 0 Yes Enayet Rahim 4 mg, 2 mL, IVP, Q6H, PRN, 10 mL, Nausea & Vomiting, Substitution Allowed, INJ [facility] acetaminophen-hydrocodone 325 mg-5 mg oral tablet 12:57:38 Yes Enayet Rahim 2 tab, PO, Q4H, PRN, 15 tab, Pain Score 4-6, Substitution Allowed, Maintenance, TAB [facility] docusate sodium 100 mg oral capsule 2012-08-10 14:00:00 No Tulio E Wendy 100 mg, 1 cap, R oute: PO, Drug form: CAP, BID, Dosing Weight 66.818, kg, Start date: 08/10/12 9:00:00, Duration: 30 day, Stop date: 09/08/12 17:00:00 [facility] Flomax 2012-08-10 13:30:00 No Vijay Ferguson Hinh 0.4 mg, 1 cap, Route: PO, Drug form: CAP, After Breakfast, Dosing Weight 66.818, kg, Start date: 08/10/12 8:30:00, Duration: 30 day, Stop date: 09/08/12 8:30:00 [facility] Lovenox 2012-08-10 11:00:00 No Tulio E Wendy 40 mg, 0.4 mL, Route: SUB-Q, Drug form: INJ, [id number], Dosing Weight 66.818, kg, Start date: 08/10/12 6:00:00, Duration: 30 day, Stop date: 09/08/12 6:00:00 [facility] METRONIDazole (SCIP) 2012-08-10 00:00:00 No Tulio E Wendy 500 mg, 100 mL, Route: IVPB, Drug form: INJ, [id number], Dosing Weight 66.818, kg, Start date: 08/09/12 19:00:00, Duration: 3 doses or times, Stop date: 08/10/12 11:00:00 [facility] Ofirmev 2012-08-09 23:15:00 No Darnell Trey Chandler 1,000 mg, Route: IV, Drug form: INJ, ONCE, Dosing Weight 66.818, kg, PRN Pain, for > or = 50 kg, Start date: 08/09/12 18:15:00 [facility] 10/325 oral tablet 2012-08-09 23:15:00 No Darnell T Chandler 1 tab, Route: PO, Drug Form: TAB, Dosing Weight 66.818, kg, Q6H, PRN Pain, Start date: 08/09/12 18:15:00, Duration: 30 day, Stop date: 09/08/12 18:14:00 [facility] hydromorphone 2012-08-09 23:15:00 No Darnell T Chandler 0.5 mg, Route: IVP, Q5Min, Dosing Weight 66.818, kg, PRN Pain Score 4-6, Start date: 08/09/12 18:15:00, Duration: 5 doses or times, Stop date: Limited # of times [facility] fentanyl 2012-08-09 23:15:00 No Darnell T Chandler 25 microgram, Route: IVP, Q5Min, Dosing Weight 66.818, kg, PRN Pain Score 4-6, Start date: 08/09/12 18:15:00, Duration: 4 doses or times, Stop date: Limited # of times [facility] flumazenil 2012-08-09 23:15:00 No Darnell T Chandler 0.2 mg, Route: IVP, PRN, Dosing Weight 66.818, kg, PRN Benzodiazepine Reversal, Initial dose, Start date: 08/09/12 18:15:00, Duration: 30 day, Stop date: 09/08/12 18:14:00 [facility] naloxone 2012-08-09 23:15:00 No Darnell T Chandler 0.04 mg, Route: IVP, Q2MIN, Dosing Weight 66.818, kg, PRN Narcotic Reversal, Start date: 08/09/12 18:15:00, Duration: 8 doses or times, Stop date: Limited # of times [facility] ondansetron 2012-08-09 23:15:00 No Darnell T Chandler 4 mg, Route: IVP, ONCE, Dosing Weight 66.818, kg, PRN Nausea & Vomiting, Start date: 08/09/12 18:15:00 [facility] ciprofloxacin (SCIP) 2012-08-09 23:00:00 No Tulio E Wendy 400 mg, 200 mL, Route: IVPB, Drug form: INJ, [id number], Dosing Weight 66.818, kg, Start date: 08/09/12 18:00:00, Duration: 2 doses or times, Stop date: 08/10/12 6:00:00 [facility] Lactated Ringers Injection IV 1,000 mL 2012-08-09 22:24:00 No Tulio George Wendy 1,000 mL, Rate: 125 ml/hr, Infuse over: 8 hr, Route: IV, kg, Total Volume: 1,000, Start date: 08/09/12 17:24:00, Duration: 30 day, Stop date: 09/08/12 17:23:00 [facility] acetaminophen-hydrocodone 325 mg-5 mg oral tablet 22:24:00 No Tulio Shanksanda 2 tab, Route: PO, Drug Form: TAB, Dosing Weight 66.818, kg, Q4H, PRN Pain Score 4-6, Start date: 08/09/12 17:24:00, Duration: 30 day, Stop date: 09/08/12 17:23:00 [facility] ondansetron 2012-08-09 22:24:00 No Tulio Vazquez Wendy 4 mg, 2 mL, Route: IVP, Drug form: INJ, Q6H, Dosing Weight 66.818, kg, PRN Nausea & Vomiting, Start date: 08/09/12 17:24:00, Duration: 30 day, Stop date: 09/08/12 17:23:00 [facility] diphenhydrAMINE 2012-08-09 22:24:00 No Tulio Shanksan da 25 mg, 1 tab, Route: PO, Drug form: TAB, Bedtime, Dosing Weight 66.818, kg, PRN Insomnia, Start date: 08/09/12 17:24:00, Duration: 30 day, Stop date: 09/08/12 17:23:00 [facility] Lactated Ringers IV 1,000 mL 2012-08-09 20:19:00 No Kobe Ortiz Frias 1,000 mL, Rate: 25 ml/hr, Infuse over: 40 hr, Route: IV, kg, Total Volume: 1,000, Start date: 08/09/12 15:19:00, Duration: 30 day, Stop date: 09/08/12 15:18:00 [facility] Rocephin + Sodium Chloride 0.9% IV 100 mL 2012-08-09 17:00 :00 No Tulio George Wendy 2 gm, Route: IVP B, ONCALL, Start date: 08/09/12 12:00:00, Duration: 2 day, Stop date: 08/11/12 11:59:00 [facility] [place] 2012-08-08 20:57:00 No Tulio E Wendy 133 ml, Route: [place], Drug Form: SUMAN, Dosing Weight 66.818, kg, ONCE, Start date: 08/08/12 15:57:00, Stop date: 08/08/12 15:57:00 [facility] 2012-08-08 12:05:00 No Enayet Rahim 133 ml, Route: [place], Drug Form: SUMAN, Dosing Weight 66.818, kg, ONCE, Start date: 08/08/12 7:05:00, Stop date: 08/08/12 7:05:00 [facility] Ambien 2012-08-08 12:04:00 No Enayet Rahim 10 mg, 1 tab, Route: PO, Drug form: TAB, Bedtime, Dosing Weight 66.818, kg, PRN as needed for sleep, Start date: 08/08/12 7:04:00, Duration: 30 day, Stop date: 09/07/12 7:03:00 [facility] temazepam 2012-08-08 02:00:00 No Enayet Rahim 15 mg, 1 cap, Route: PO, Drug form: CAP, Bedtime, Dosing Weight 66.818, kg, Start date: 08/07/12 21:00:00, Duration: 30 day, Stop date: 09/05/12 21:00:00 [facility] Protonix 2012-08-07 21:30:00 No Enayet Rahim 40 mg, 1 tab, Route: PO, Drug form: ECTAB, Before Dinner, Dosing Weight 66.364, kg, Start date: 08/07/12 16:30:00, Duration: 30 day, Stop date: 09/05/12 16:30:00 [facility] Pristiq 50mg po daily*Pts own med* 2012-08-07 14:00:00 N o Enayet Rahim Pristiq 50mg po daily*Pts own med*, Kira tiq 50mg po daily*Pts own med*, Drug form: MISC, Route: PO, Daily, 08/07/12 9:00:00, Duration: 30 day, Stop date: 09/05/12 9:00:00 [facility] Pristiq 50 mg oral tablet, extended release 2012-08-07 14: 00:00 No Enayet Rahim 1 tab, Route: PO , Drug form: ERTAB, Daily, Dosing Weight 66.364, kg, Start date: 08/07/12 9:00:00, Duration: 30 day, Stop date: 09/05/12 9:00:00 [facility] diazepam 2012-08-07 14:00:00 No Enayet Rahim 10 mg, 1 tab, Route: PO, Drug form: TAB, QID, Dosing Weight 66.818, kg, Start date: 08/07/12 9:00:00, Duration: 30 day, Stop date: 09/05/12 21:00:00 [facility] Milk of Magnesia 2012-08-07 12:13:00 No Enayet Rahim 60 ml, Route: PO, Drug Form: SUSP, Dosing Weight 66.818, kg, ONCE, PRN as needed for constipation, Start date: 08/07/12 7:13:00 [facility] Fleet Enema 2012-08-07 12:12:00 No Enayet Rahim 133 ml, Route: [place], Drug Form: SUMAN, Dosing Weight 66.818, kg, ONCE, Start date: 08/07/12 7:12:00, Stop date: 08/07/12 7:12:00 [facility] Benadryl 2012-08-07 05:19:00 No Enayet Rahim 25 mg, 0.5 mL, Route: IV, Drug form: INJ, Q4H, Dosing Weight 66.818, kg, PRN as needed for itching, Start date: 08/07/12 0:19:00, Duration: 30 day, Stop date: 09/06/12 0:18:00 [facility] hydromorphone 2012-08-06 22:42:00 No Enayet Rahim 1.5 mg, 1.5 mL, Route: IV, Drug form: SOLN, Q3H, Dosing Weight 66.818, kg, PRN Pain Score 6-10, Start date: 08/06/12 17:42:00, Duration: 30 day, Stop date: 09/05/12 17:41:00 [facility] Protonix 2012-08-06 21:30:00 No Enayet Rahim 40 mg, Route: IVP, Drug form: INJ, Before Dinner, Dosing Weight 66.364, kg, Start date: 08/06/12 16:30:00, Duration: 30 day, Stop date: 09/04/12 16:30:00 [facility] Pristiq 50 mg oral tablet, extended release 2012-08-06 21: 01:47 Yes Enayet Rahim 50 mg, 1 tab, PO, Daily, 30 tab, Substit ution Allowed, ERTAB [facility] Levaquin 2012-08-06 20:00:00 No Enayet Rahim 500 mg, 100 mL, Route: IVPB, Drug form: INJ, [id number], Dosing Weight 66.364, kg, Start date: 08/06/12 15:00:00, Duration: 30 day, Stop date: 09/04/12 15:00:00 [facility] enoxaparin 2012-08-06 20:00:00 No Enayet Rahim 40 mg, 0.4 mL, Route: SUB-Q, Drug form: INJ, [id number], Dosing Weight 66.364, kg, Start date: 08/06/12 15:00:00, Duration: 30 day, Stop date: 09/04/12 15:00:00 [facility] Restoril 2012-08-06 19:15:00 No Enayet Rahim 30 mg, 2 cap, Route: PO, Drug form: CAP, Bedtime, Dosing Weight 66.364, kg, PRN Sleep, Start date: 08/06/12 14:15:00, Duration: 30 day, Stop date: 09/05/12 14:14:00 [facility] Phenergan + Sodium Chloride 0.9% IV 50 mL 2012-08-06 19:14 :00 No Enayet Rahim 12.5 mg, 0.5 mL, Route: IVPB, Q4H, Dosing Weight 66.364, kg, PRN Nausea & Vomiting, Start date: 08/06/12 14:14:00, Duration: 30 day, Stop date: 09/05/12 14:13:00 [facility] Dilaudid 2012-08-06 19:13:00 No Enayet Rahim 1 mg, 1 mL, Route: IV, Drug form: SOLN, Q3H, Dosing Weight 66.364, kg, PRN Pain, Start date: 08/06/12 14:13:00, Duration: 30 day, Stop date: 09/05/12 14:12:00 [facility] D5LR 1,000 mL 2012-08-06 19:08:00 No Enayet Rahim 1,000 mL, Rate: 100 ml/hr, Infuse over: 10 hr, Route: IV, kg, Total Volume: 1,000, Start date: 08/06/12 14:08:00, Duration: 30 day, Stop date: 09/05/12 14:07:00 [facility] Bentyl 2012-07-19 20:23:00 No Enayet Rahim 10 mg, 1 cap, Route: PO, Drug form: CAP, Q6H, Dosing Weight 66.364, kg, PRN For Pain, Start date: 07/19/12 14:23:00, Duration: 30 day, Stop date: 08/18/12 14:22:00 [facility] Fioricet 2012-07-19 13:23:00 No Enayet Rahim 1 tab, Route: PO, Drug Form: TAB, Dosing Weight 66.364, kg, Q4H, PRN Headache, Start date: 07/19/12 7:23:00, Duration: 30 day, Stop date: 08/18/12 7:22:00 [facility] zolpidem 2012-07-19 03:00:00 No Enayet Rahim 20 mg, 2 tab, Route: PO, Drug form: TAB, Bedtime, Dosing Weight 66.364, kg, Start date: 07/18/12 21:00:00, Duration: 30 day, Stop date: 08/16/12 21:00:00 [facility] citalopram 2012-07-19 03:00:00 No Enayet Rahim 10 mg, 1 tab, Route: PO, Drug form: TAB, Bedtime, Dosing Weight 66.364, kg, Start date: 07/18/12 21:00:00, Duration: 30 day, Stop date: 08/16/12 21:00:00 [facility] influenza virus vaccine, inactivated 2012-07-18 19:30:00 No SYSTEM SYSTEM 0.5 ml, Route: IM, Drug Form : INJ, Start date: 07/18/12 13:30:00, Stop date: 07/18/12 13:30:00 [facility], [facility] Phenergan + Sodium Chloride 0.9% IV 50 mL 2012-07-18 15:49 :00 No Enayet Rahim 12.5 mg, 0.5 mL, Route: IVPB, ONCE, Dosing Weight 66.364, kg, Start date: 07/18/12 9:49:00, Stop date: 07/18/12 9:49:00 [facility] Valium 2012-07-18 15:00:00 No Enayet Rahim 10 mg, 2 tab, Route: PO, Drug form: TAB, QID, Start date: 07/18/12 9:00:00, Duration: 30 day, Stop date: 08/16/12 21:00:00 [facility] diazepam 2012-07-18 15:00:00 No Enayet Rahim 10 mg, Route: PO, Drug form: TAB, QID, Dosing Weight 66.364, kg, Start date: 07/18/12 9:00:00, Duration: 30 day, Stop date: 08/16/12 21:00:00 [facility] influenza virus vaccine, inactivated 2012-07-18 15:00:00 No SYSTEM SYSTEM 0.5 ml, Route: IM, Drug Form : INJ, Daily, Start date: 07/18/12 9:00:00, Duration: 1 doses or times, Stop date: 07/18/12 9:00:00 [facility] Flomax 2012-07-18 14:30:00 No Enayet Rahim 0.4 mg, 1 cap, Route: PO, Drug form: CAP, After Breakfast, Dosing Weight 66.364, kg, Start date: 07/18/12 8:30:00, Duration: 30 day, Stop date: 08/16/12 8:30:00 [facility] D5W 1/2NS + KCL 20mEq/L 1000ml (Premix) 1,000 mL 12:37:00 No Enayet Rahim 1,000 mL, Rate: 150 ml/hr, Infuse over: 6.7 hr, Route: IV, kg, Total Volume: 1,000, Start date: 07/18/12 6:37:00, Duration: 30 day, Stop date: 08/17/12 6:36:00 [facility] diazepam 2012-07-18 12:10:00 No Enayet Rahim 10 mg, 2 tab, Route: PO, Drug form: TAB, ONCE, Dosing Weight 66.364, kg, PRN Seizure, Start date: 07/18/12 6:10:00 [facility] diazepam 2012-07-18 11:26:00 No Enayet Rahim 10 mg, 2 tab, Route: PO, Drug form: TAB, QID, Dosing Weight 66.364, kg, PRN, Start date: 07/18/12 5:26:00, Duration: 30 day, Stop date: 08/17/12 5:25:00, QID [facility] Dilaudid 2012-07-18 06:29:00 No Enayet Rahim 1.5 mg, 1.5 mL, Route: IV, Drug form: SOLN, Q4H, Dosing Weight 66.364, kg, PRN Pain, Start date: 07/18/12 0:29:00, Stop date: 08/17/12 0:28:00 [facility] morphine Sulfate 2012-07-18 02:23:00 No Enayet Rahim 2 mg, 1 mL, Route: IVP, Drug form: INJ, Q4H, Dosing Weight 66.364, kg, PRN Pain Score 4-6, Start date: 07/17/12 20:23:00, Duration: 30 day, Stop date: 08/16/12 20:22:00 [facility] Saline Flush 0.9% 2012-07-18 02:23:00 No Enayet Rahim 5 ml, Route: IVP, Drug Form: INJ, Dosing Weight 66.364, kg, PRN, PRN Line Flush, Start date: 07/17/12 20:23:00, Duration: 30 day, Stop date: 08/16/12 21:22:00 [facility] citalopram 10 mg oral tablet 2012-07-18 01:38:45 Yes Jenny yet Rahim 10 mg, 1 tab, PO, Bedtime, 30 tab, Substitution Allowed, TAB [facility] Flomax 0.4 mg oral capsule 2012-07-18 01:38:09 Yes Enaye t Rahim 0.4 mg, 1 cap, PO, After Breakfast, 30 cap, Substitution Allowed, CAP [facility] Bactrim DS oral tablet 2012-07-18 01:37:42 Yes 1 tab, PO, BID, 6 tab, Substitution Allowed, Maintenance [facility] Benadryl 2012-07-18 00:05:00 No Antonio Deni Shine 12.5 mg, Route: IVP, ONCE, Dosing Weight 66.364, kg, Priority: STAT, Start date: 07/17/12 18:05:00, Stop date: 07/17/12 18:05:[facility] 2012-07-17 23:47:00 No Asem Souman 4 mg, Route: IVP, Drug form: INJ, ONCE, Dosing Weight 66.364, kg, PRN Nausea, Priority: STAT, Start date: 07/17/12 17:47:00 [facility] morphine Sulfate 2012-07-17 23:47:00 No Asem Souman 4 mg, Route: IVP, ONCE, Dosing Weight 66.364, kg, Start date: 07/17/12 17:47:00, Stop date: 07/17/12 17:47:00 [facility] Saline Flush 0.9% 2012-07-17 21:00:00 No Asem Souman 5 ml, Route: IVP, Drug Form: INJ, Dosing Weight 66.364, kg, PRN, PRN Line Flush, Start date: 07/17/12 15:00:00, Duration: 30 day, Stop date: 08/16/12 15:59:00 [facility] LORAzepam 2012-07-17 21:00:00 No Asem Souman 1 mg, 0.5 mL, Route: IVP, Drug form: INJ, ONCE, Dosing Weight 66.364, kg, Priority: STAT, Start date: 07/17/12 15:00:00, Stop date: 07/17/12 15:00:00 [facility] Ativan 2012-07-16 08:47:00 No Sergo Kutsen 1 mg, Route: IVP, ONCE, Dosing Weight 66.364, kg, Priority: STAT, Start date: 07/16/12 2:47:00, Stop date: 07/16/12 2:47:00 [facility] pantoprazole 2012-07-16 05:31:00 No Sergo Kutsen 40 mg, Route: IVP, ONCE, Dosing Weight 66.364, kg, For IV push reconstitute with 10 ml 0.9% sodium chloride and push over at least 3 minutes, Priority: STAT, Start date: 07/15/12 23:31:00, Stop date: 07/15/12 23:31:00 [facility] Sodium Chloride 0.9% (Bolus) IV 500 mL 2012-07-16 05:31:00 No Sergo Kutsen 500 mL, Rate: 1, 000 ml/hr, Infuse over: 30 minutes, Route: IV, kg, Total Volume: 500, Priority: STAT, Start date: 07/15/12 23:31:00, Duration: 1 doses or times, Stop date: 07/16/12 0:00:00 [facility] Saline Flush 0.9% 2012-07-16 05:31:00 No Sergo Kutsen 5 mL, Route: IVP, Drug Form: INJ, Dosing Weight 66.364, kg, PRN, PRN Line Flush, Start date: 07/15/12 23:31:00, Duration: 24 hr, Stop date: 07/16/12 23:30:00 [facility] ondansetron 2012-07-16 05:31:00 No Sergo Kutsen 4 mg, Route: IVP, ONCE, Dosing Weight 66.364, kg, Priority: STAT, Start date: 07/15/12 23:31:00, Stop date: 07/15/12 23:31:00 [facility] hydromorphone 2012-07-16 05:31:00 No Sergo Kutsen 1 mg, Route: IVP, ONCE, Dosing Weight 66.364, kg, Priority: STAT, Start date: 07/15/12 23:31:00, Stop date: 07/15/12 23:31:00 [facility]100 mL intravenous solution 2012-07-11 13:20:04 Yes Enayet Rahim 500 mg, 100 mL, IVPB, [id number], 7 mL, Substitution Allowed, INJ [facility] [place] 5/325 oral tablet 2012-07-11 13:19:45 Yes Enayet R ahim 1 tab, PO, Q4H, PRN, 12 tab, for pain, Substitution Allowed, Maintenance, TAB [facility] [place] 10/325 oral tablet 2012-07-11 13:18:00 No Enayet Rahim 1 tab, Route: PO, Drug Form: TAB, Dosing Weight 66.818, kg, Q6H, PRN Pain, Start date: 07/11/12 7:18:00, Duration: 30 day, Stop date: 08/10/12 7:17:00 [facility] Protonix 2012-07-10 22:30:00 No Enayet Rahim 40 mg, 1 tab, Route: PO, Drug form: ECTAB, Before Dinner, Dosing Weight 59.091, kg, Start date: 07/10/12 16:30:00, Duration: 30 day, Stop date: 08/08/12 16:30:00 [facility] amitriptyline 2012-07-10 03:00:00 No Enayet Rahim 50 mg, 1 tab, Route: PO, Drug form: TAB, Bedtime, Dosing Weight 66.818, kg, Start date: 07/09/12 21:00:00, Duration: 30 day, Stop date: 08/07/12 21:00:00 [facility] Ambien 2012-07-09 23:41:00 No Enayet Rahim 10 mg, 1 tab, Route: PO, Drug form: TAB, Bedtime, Dosing Weight 66.818, kg, PRN Insomnia, Start date: 07/09/12 17:41:00, Duration: 30 day, Stop date: 08/08/12 17:40:00 [facility] Protonix 2012-07-09 22:30:00 No Enayet Rahim 40 mg, Route: IVP, Drug form: INJ, Before Dinner, Dosing Weight 59.091, kg, Start date: 07/09/12 16:30:00, Duration: 30 day, Stop date: 08/07/12 16:30:00 [facility] diazepam 2012-07-09 20:57:00 No Enayet Rahim 10 mg, 2 tab, Route: PO, Drug form: TAB, Q6H, Dosing Weight 66.818, kg, Start date: 07/09/12 14:57:00, Stop date: 08/08/12 10:00:00 [facility] enoxaparin 2012-07-09 18:00:00 No Enayet Rahim 40 mg, 0.4 mL, Route: SUB-Q, Drug form: INJ, [id number], Dosing Weight 59.091, kg, Start date: 07/09/12 12:00:00, Duration: 30 day, Stop date: 08/07/12 13:00:00 [facility] Levaquin 2012-07-09 18:00:00 No Enayet Rahim 500 mg, 100 mL, Route: IVPB, Drug form: INJ, [id number], Dosing Weight 59.091, kg, Start date: 07/09/12 12:00:00, Duration: 30 day, Stop date: 08/07/12 13:00:00 [facility] Phenergan + Sodium Chloride 0.9% IV 50 mL 2012-07-09 17:12 :00 No Enayet Rahim 12.5 mg, 0.5 mL, Route: IVPB, Q4H, Dosing Weight 59.091, kg, PRN Nausea & Vomiting, Start date: 07/09/12 11:12:00, Stop date: 08/08/12 11:11:00 [facility] Dilaudid 2012-07-09 17:12:00 No Enayet Rahim 1 mg, 1 mL, Route: IV, Drug form: SOLN, Q3H, Dosing Weight 59.091, kg, PRN Pain, Start date: 07/09/12 11:12:00, Duration: 30 day, Stop date: 08/08/12 11:11:00 [facility] acetaminophen 2012-07-09 17:08:00 No Enayet Rahim 650 mg, 2 tab, Route: PO, Drug form: TAB, Q4H, Dosing Weight 59.091, kg, PRN Pain/Fever, Start date: 07/09/12 11:08:00, Duration: 30 day, Stop date: 08/08/12 11:07:00 [facility] NS + KCL 20mEq/L 1000ml (Premix) 1,000 mL 2012-07-09 17:08 :00 No Enayet Rahim 1,000 mL, Rate: 100 ml/hr, Infuse over: 10 hr, Route: IV, kg, Total Volume: 1,000, Start date: 07/09/12 11:08:00, Duration: 30 day, Stop date: 08/08/12 11:07:00 [facility] Saline Flush 0.9% 2012-07-09 17:08:00 No Enayet Rahim 5 ml, Route: IVP, Drug Form: INJ, Dosing Weight 59.091, kg, PRN, PRN Line Flush, Start date: 07/09/12 11:08:00, Duration: 30 day, Stop date: 08/08/12 12:07:00 [facility] temazepam 2012-07-09 17:08:00 No Enayet Rahim 15 mg, 1 cap, Route: PO, Drug form: CAP, Bedtime, Dosing Weight 59.091, kg, PRN Insomnia, Start date: 07/09/12 11:08:00, Duration: 30 day, Stop date: 08/08/12 11:07:00 [facility] docusate 2012-07-09 17:08:00 No Enayet Rahim 100 mg, 1 cap, Route: PO, Drug form: CAP, BID, Dosing Weight 59.091, kg, PRN Constipation, Start date: 07/09/12 11:08:00, Duration: 30 day, Stop date: 08/08/12 11:07:00 [facility] [place] 5/325 oral tablet 2012-07-08 10:25:33 Yes Enayet R ahim 1 tab, PO, Q4H, PRN, 12 tab, for pain, Substitution Allowed, Maintenance, TAB [facility] Sodium Chloride 0.9% (Bolus) IV 2012-07-08 08:00:00 No Asem Souman 500 mL, Route: IV, Dosing Weight 59.091, kg, ONCE, Bolus Dose - infuse over 1 hr, STAT, Start date: 07/08/12 2:00:00, Stop date: 07/08/12 2:00:00 [facility] Zofran 2012-07-08 08:00:00 No Asem Souman 4 mg, Route: IVP, Drug form: INJ, ONCE, Dosing Weight 59.091, kg, PRN Nausea, Priority: STAT, Start date: 07/08/12 2:00:00 [facility] morphine Sulfate 2012-07-08 07:59:00 No Asem Souman 4 mg, Route: IV, ONCE, Dosing Weight 59.091, kg, Start date: 07/08/12 1:59:00, Stop date: 07/08/12 1:59:00 [facility] Ultram 50 mg oral tablet 2012-07-07 08:16:34 Yes Antonio Gravesehan 50 mg, 1 tab, PO, Q4H, PRN, 12 tab, pain, Substitution Allowed [facility] Benadryl 2012-07-07 07:11:00 No Antonio Hope 25 mg, Route: PO, Drug form: CAP, ONCE, Dosing Weight 66.364, kg, Priority: STAT, Start date: 07/07/12 1:11:00, Stop date: 07/07/12 1:11:00 [facility] ondansetron 2012-07-07 06:05:00 No Antonio Hope 4 mg, 2 mL, Route: IVP, Drug form: INJ, ONCE, Dosing Weight 66.364, kg, Priority: STAT, Start date: 07/07/12 0:05:00, Stop date: 07/07/12 0:05:00 [facility] Sodium Chloride 0.9% (Bolus) IV 2012-07-07 06:05:00 No Antonio Hope 500 mL, 1000 ml/hr, Route: IV, Drug Form: INJ, Dosing Weight 66.364, kg, ONCE, Bolus at 1,000 ml/hr, STAT, Start date: 07/07/12 0:05:00, Stop date: 07/07/12 0:05:00 [facility] Saline Flush 0.9% 2012-07-07 06:05:00 No Antonio bailey 5 mL, Route: IVP, Drug Form: INJ, Dosing Weight 66.364, kg, PRN, PRN Line Flush, Start date: 07/07/12 0:05:00, Duration: 24 hr, Stop date: 07/08/12 0:04:00 [facility] morphine Sulfate 2012-07-07 06:05:00 No Antonio cole 4 mg, 2 mL, Route: IVP, Drug form: INJ, ONCE, Dosing Weight 66.364, kg, Priority: STAT, Start date: 07/07/12 0:05:00, Stop date: 07/07/12 0:05:00 [facility] droperidol 2012-05-31 15:20:00 No Antonio Hope 1.25 mg, Route: IVP, ONCE, Dosing Weight 65, kg, PRN Nausea & Vomiting, Start date: 05/31/12 9:20:00 [facility] Reglan 2012-05-31 14:31:00 No Antonio Hope 10 mg, Route: IVP, ONCE, Dosing Weight 65, kg, Priority: STAT, Start date: 05/31/12 8:31:00, Stop date: 05/31/12 8:31:00 [facility] Zofran 2012-05-31 13:57:00 No Antonio Hope 4 mg, 2 mL, Route: IVP, Drug form: INJ, ONCE, Dosing Weight 65, kg, Priority: STAT, Start date: 05/31/12 7:57:00, Stop date: 05/31/12 7:57:00 [facility] Sodium Chloride 0.9% (Bolus) IV 2012-05-31 13:57:00 No Antonio Hope 1,000 mL, 1000 ml/hr , Route: IV, Drug Form: INJ, Dosing Weight 65, kg, ONCE, Bolus Dose. Infuse over 1 hour., STAT, Start date: 05/31/12 7:57:00, Stop date: 05/31/12 7:57:00 [facility] Saline Flush 0.9% 2012-05-31 13:57:00 No Antonio bailey 5 ml, Route: IVP, Drug Form: INJ, Dosing Weight 65, kg, PRN, PRN Line Flush, Start date: 05/31/12 7:57:00, Duration: 30 day, Stop date: 06/30/12 7:56:00 [facility] Esgic 2012-04-08 23:54:00 No Temi Forrest 1 tab, Route: PO, Drug Form: TAB, ONCE, Start date: 04/08/12 17:54:00, Stop date: 04/08/12 17:54:00 [facility] Midrin 2012-04-08 23:31:00 No Temi Forrest 1 tab, Route: PO, Drug Form: CAP, Dosing Weight 61.818, kg, ONCE, Start date: 04/08/12 17:31:00, Stop date: 04/08/12 17:31:00 [facility] Zoclaudette ODT 4 mg oral tablet, disintegrating 2012-04-08 23: 20:49 Yes Temi Forrest 4 mg, 1 tab, P O, BID, PRN, Dissolve tab under tongue, 10 tab, Nausea and Vomiting, Substitution AllowedDissolve tab under tongue [facility] Zofran 2012-04-08 23:04:00 No Temi Forrest 4 mg, Route: IVP, Drug form: INJ, ONCE, Dosing Weight 61.818, kg, Priority: STAT, Start date: 04/08/12 17:04:00, Stop date: 04/08/12 17:04:00 [facility] Motrin 2012-04-08 22:27:00 No Temi Forrest 800 mg, Route: PO, Drug form: TAB, ONCE, Dosing Weight 61.818, kg, Priority: STAT, Start date: 04/08/12 16:27:00, Stop date: 04/08/12 16:27:00 [facility] EpiPen Auto-Injector 0.3 mg injectable kit 2012-02-17 00:1 8:09 Yes Isolde Sasam Aguhar 0.3 mg, IM, ONCE, 1 kit, Substitution Allowed, SOLN [facility] epinephrine 1 mg/mL injectable solution 2012-02-16 21:21:0 0 No Isolde Sasam Aguhar 0.3 mg, Route: I M, ONCE, Dosing Weight 61.818, kg, Priority: STAT, Start date: 02/16/12 16:21:00, Stop date: 02/16/12 16:21:00 [facility] diphenhydrAMINE 2012-02-16 21:13:00 No Isolde Sasam Klarissa philomena 25 mg, Route: IVP, ONCE, Dosing Weight 61.818, kg, Priority: STAT, Start date: 02/16/12 16:13:00, Stop date: 02/16/12 16:13:00 [facility] LORAzepam 2012-02-16 21:13:00 No Isolde Sasam Aguhar 1 mg, Route: PO, ONCE, Dosing Weight 61.818, kg, Priority: STAT, Start date: 02/16/12 16:13:00, Stop date: 02/16/12 16:13:00 [facility] t epinephrine topical 1:1000 solution 2012-02-16 21:13:00 No Isolde Sasam Aguhar 0.3 mL, Route: I M, ONCE, Start date: 02/16/12 16:13:00, Stop date: 02/16/12 16:13:00 [facility] famotidine 2012-02-16 21:13:00 No Isolde Sasam Aguhar 20 mg, Route: IVP, ONCE, Dosing Weight 61.818, kg, Priority: STAT, Start date: 02/16/12 16:13:00, Stop date: 02/16/12 16:13:00 [facility] NS 500 mL 2012-02-16 21:12:00 No Isolde Sasam Aguhar 500 mL, Rate: 1,000 ml/hr, Infuse over: 0.5 hr, Route: IV, Dosing Weight 61.818 kg, Total Volume: 500, Start date: 02/16/12 16:12:00, Duration: 1 doses or times, Stop date: 02/16/12 16:41:00, Bolus DoseBolus Dose [facility] Toradol 30 mg/mL injectable solution 2012-01-25 05:13:00 No Asem Souman 30 mg, Route: IV, Drug form: INJ, ONCE, Dosing Weight 62.727, kg, Priority: STAT, Start date: 01/25/12 0:13:00, Stop date: 01/25/12 0:13:00 [facility] Sodium Chloride 0.9% (Bolus) IV 1000 mL 2012-01-25 02:58:00 No Asem Souman 1,000 mL, Rate: 1,00 0 ml/hr, Infuse over: 1 hr, Route: IV, kg, Total Volume: 1,000, Bolus Dose, Priority: STAT, Start date: 01/24/12 21:58:00, Duration: 1 doses or times, Stop date: 01/24/12 22:57:00 [facility] MiraLax 2012-01-02 22:00:00 No Kaylee Jarvis Surapa neni 17 gm, 1 pkt, Route: PO, Drug form: PWDR, BID, kg, Start date: 01/02/12 17:00:00, Duration: 30 day, Stop date: 02/01/12 9:00:00 [facility] vitamin A & D topical 2012-01-02 02:00:00 No Enayet Rah im 1 appl, Route: TOP, QID, Drug form: OINT, Start date: 01/01/12 21:00:00, Duration: 30 day, Stop date: 01/31/12 17:00:00 [facility] GoLYTELY 2012-01-01 22:17:00 No Kaylee Jarvis Surap aneni 4,000 ml, Route: PO, Drug Form: PDR/REC, kg, ONCE, Start date: 01/01/12 17:17:00, Duration: 1 doses or times, Stop date: 01/01/12 17:17:00 [facility] Zofran 2012-01-01 19:09:00 No Kaylee Jarvis Surapan gabe 4 mg, 2 mL, Route: IVP, Drug form: INJ, Q6H, kg, PRN Nausea, Start date: 01/01/12 14:09:00, Duration: 30 day, Stop date: 01/31/12 14:08:00 [facility] Ativan 2012-01-01 16:02:00 No Enayet Rahim 1 mg, 0.5 mL, Route: IV, Drug form: INJ, Q4H, kg, PRN Anxiety, Priority: NOW, Start date: 01/01/12 11:02:00, Duration: 30 day, Stop date: 01/31/12 11:01:00 [facility] Pristiq 50 mg oral tablet, extended release 2012-01-01 14: 00:00 No Enayet Rahim 50 mg, 1 tab, [place]: PO, Drug form: ERTAB, Daily, Dosing Weight 66.818, kg, Start date: 01/01/12 9:00:00, Duration: 30 day, Stop date: 01/30/12 9:00:00 [facility] Protonix 2012-01-01 14:00:00 No Enayet Rahim 40 mg, Route: IVP, Drug form: INJ, Daily, kg, Patient is NPO, Start date: 01/01/12 9:00:00, Duration: 30 day, Stop date: 01/30/12 9:00:00 Kristen [facility] Pt's own med DESVENLAFAXINE Pt's own med 2012-01-01 14:00:00 No Enayet Rahim Pt's own med DESVENLAFAXINE Pt's own med, 50 mg, Drug form: MISC, Route: PO, Daily, 01/01/12 9:00:00, Duration: 30 day, Stop date: 01/30/12 9:00:00 [facility] Saline Flush 0.9% 2012-01-01 13:33:00 No Enayet Rahim 5 ml, Route: IVP, Drug Form: INJ, kg, PRN, PRN Line Flush, Start date: 01/01/12 8:33:00, Duration: 30 day, Stop date: 01/31/12 8:32:00 [facility] Sodium Chloride 0.45% IV 1,000 mL 2012-01-01 13:33:00 No Enayet Rahim 1,000 mL, Rate: 125 ml/hr, Infuse over: 8 hr, Route: IV, Dosing Weight 66.818 kg, Total Volume: 1,000, Start date: 01/01/12 8:33:00, Duration: 30 day, Stop date: 01/31/12 8:32:00 [facility] ondansetron 2012-01-01 13:33:00 No Enayet Rahim 4 mg, 2 mL, Route: IVP, Drug form: INJ, ONCE, kg, PRN Nausea & Vomiting, Start date: 01/01/12 8:33:00 [facility] Esgic 2012-01-01 05:36:00 No Enayet Rahim 1 tab, Route: PO, Drug Form: TAB, Q4H, PRN Other -See Comment, Start date: 01/01/12 0:36:00, Duration: 30 day, Stop date: 01/31/12 0:35:00 Anju dalton temazepam 2012-01-01 04:59:00 No Enayet Rahim 15 mg, 1 cap, Route: PO, Drug form: CAP, Bedtime, kg, Start date: 12/31/11 23:59:00, Duration: 30 day, Stop date: 01/30/12 21:00:00 Ashley looney nitroglycerin 0.4 mg sublingual tablet 2012-01-01 04:44:00 No Enayet Rahim 0.4 mg, 1 tab, Route : SL, Drug form: TAB, Q5Min, PRN Chest Pain, Start date: 12/31/11 23:44:00, Duration: 30 day, Stop date: 01/30/12 23:43:00 [facility] atropine 2012-01-01 04:43:00 No Enayet Rahim 0.5 mg, 5 mL, Route: IVP, Drug form: INJ, PRN, PRN Bradycardia, Start date: 12/31/11 23:43:00, Duration: 30 day, Stop date: 01/30/12 23:42:00 [facility] trazodone 2012-01-01 02:29:00 No Enayet Rahim 150 mg, 3 tab, Route: PO, Drug form: TAB, Bedtime, kg, PRN Sleep, Start date: 12/31/11 21:29:00, Duration: 30 day, Stop date: 01/30/12 21:28:00 [facility] NS + KCL 20mEq/L 1000ml (Premix) 1,000 mL 2012-01-01 02:27 :00 No Enayet Rahim 1,000 mL, Rate: 125 ml/hr, Infuse over: 8 hr, Route: IV, Dosing Weight 66.818 kg, Total Volume: 1,000, Start date: 12/31/11 21:27:00, Duration: 30 day, Stop date: 01/30/12 21:26:00 [facility] trazodone 150 mg oral tablet 2012-01-01 02:14:28 Yes Jenny yet Rahim 150 mg, 1 tab, PO, Bedtime, PRN, 30 tab, insomnia (for waking up after taking other sleep meds), Substitution Allowed, TAB [facility] temazepam 15 mg oral capsule 2012-01-01 02:12:52 Yes Jenny yet Rahim 15 mg, 1 cap, PO, Bedtime, Substitution Allowed, with zolpidem for PTSDwith zolpidem for PTSD [facility] zolpidem 10 mg oral tablet 2012-01-01 02:12:02 Yes 20 mg, 2 tab, PO, Bedtime, Substitution Allowed, with temazepam for PTSDwith temazepam for PTSD [facility] Fioricet 2012-01-01 00:57:00 No Antonio Hope 1 tab, Route: PO, Drug Form: TAB, kg, ONCE, Start date: 12/31/11 19:57:00, Stop date: 12/31/11 19:57:00 [facility] Zoan 2012-01-01 00:27:00 No Antonio Hope 4 mg, Route: PO, ONCE, Dosing Weight 66.818, kg, Start date: 12/31/11 19:27:00, Stop date: 12/31/11 19:27:00 [facility] acetaminophen 2011-12-31 23:21:00 No Antonio ramos 975 mg, 3 tab, Route: PO, Drug form: TAB, ONCE, kg, Priority: STAT, Start date: 12/31/11 18:21:00, Stop date: 12/31/11 18:21:00 [facility] Sodium Chloride 0.9% (Bolus) IV 1,000 mL 2011-12-31 23:20: 00 No Antonio Hope 1,000 mL, Rate: 1,000 ml/hr, Infuse over: 1 hr, Route: IV, Dosing Weight 66.818 kg, Total Volume: 1,000, Bolus Dose, Priority: STAT, Start date: 12/31/11 18:20:00, Duration: 1 doses or times, Stop date: 12/31/11 19:19:00 [facility] Zoan 2011-12-31 05:45:00 No Sergo Stallworth 4 mg, Route: IVP, Drug form: INJ, ONCE, Dosing Weight 66.875, kg, Priority: STAT, Start date: 12/31/11 0:45:00, Stop date: 12/31/11 0:45:00 [facility] morphine Sulfate 2011-12-31 05:13:00 No Sergo Kutsen 2 mg, Route: IVP, ONCE, Dosing Weight 66.875, kg, Start date: 12/31/11 0:13:00, Stop date: 12/31/11 0:13:00 [facility] Saline Flush 0.9% 2011-12-31 04:07:00 No Sergo Kutsen 5 ml, Route: IVP, Drug Form: INJ, kg, PRN, PRN Line Flush, Start date: 12/30/11 23:07:00, Duration: 24 hr, Stop date: 12/31/11 23:06:00 [facility] NS (Bolus) IV 1,000 mL 2011-10-16 06:26:00 No Rajinder A Biswas 1,000 mL, Rate: 1,000 ml/hr, Infuse over: 1 hr, Route: IV, Dosing Weight 63 kg, Total Volume: 1,000, Priority: STAT, Start date: 10/16/11 1:26:00, Duration: 1 doses or times, Stop date: 10/16/11 2:25:00, Bolus DoseBolus Dose [facility] Fioricet with Codeine oral capsule 2011-10-10 19:17:23 Y es Kaisen Fang 2 cap, PO, Q4H, PRN, 20 cap, for headach e, Substitution Allowed, Maintenance, CAP [facility] Pristiq 50 mg oral tablet, extended release 2011-10-10 14: 00:00 No Kaisen Fang 50 mg, 1 tab, [place]: PO, Drug form: ERTAB, Daily, Start date: 10/10/11 9:00:00, Duration: 30 day, Stop date: 11/08/11 9:00:00 [facility] Pristiq 50mg 2011-10-10 14:00:00 No Kaisen Fang Pristiq 50mg, (pt's own med), Drug form: MISC, Route: PO, Daily, 10/10/11 9:00:00, Duration: 30 day, Stop date: 11/08/11 9:00:00 Ashley t Benadryl 2011-10-10 00:07:00 No Kaisen Fang 25 mg, 0.5 mL, Route: IV, Drug form: INJ, QID, PRN as needed for allergy symptoms, Start date: 10/09/11 19:07:00, Duration: 30 day, Stop date: 11/08/11 19:06:00 [facility] diazepam 2011-10-09 22:00:00 No Kaisen Fang 10 mg, 1 tab, Route: PO, Drug form: TAB, QID, Start date: 10/09/11 17:00:00, Duration: 30 day, Stop date: 11/08/11 13:00:00 [facility] Fioricet with Codeine 2011-10-09 21:33:00 No Kaisen Fan g Fioricet with Codeine, (pt's own med), Drug form: MISC, Route: PO, Q4H, PRN Pain, 10/09/11 16:33:00, Duration: 30 day, Stop date: 11/08/11 16:32:00 [facility] Fioricet 2011-10-09 21:29:00 No Kaisen Fang 1 tab, Route: PO, Drug Form: TAB, Q4H, PRN Headache, Start date: 10/09/11 16:29:00, Duration: 30 day, Stop date: 11/08/11 16:28:00 [facility] Fioricet with Codeine 2011-10-09 21:28:00 No Kaisen Fan g 1 cap, Route: PO, Drug Form: CAP, Q4H, PRN Headache, Start date: 10/09/11 16:28:00, Duration: 30 day, Stop date: 11/08/11 16:27:00 [facility] Ambien 2011-10-09 20:54:00 No Kaisen Fang 20 mg, 2 tab, Route: PO, Drug form: TAB, Bedtime, PRN Sleep, Start date: 10/09/11 15:54:00, Duration: 30 day, Stop date: 11/08/11 15:53:00 Kristen the[facility] Motrin 2011-10-09 20:27:00 No Kaisen Fang 600 mg, 3 tab, Route: PO, Drug form: TAB, QID, PRN Pain, Start date: 10/09/11 15:27:00, Duration: 30 day, Stop date: 11/08/11 15:26[facility] 2011-10-09 20:26:00 No David en Fang 50 mg, 1 tab, Route: PO, Drug form: TAB, Bedtime, PRN Anxiety, Start date: 10/09/11 15:26:00, Duration: 30 day, Stop date: 11/08/11 15:25:00 [facility] Ambien CR 2011-10-09 20:26:00 No Kaisen Fang 25 mg, Route: PO, Drug form: ERTAB, Bedtime, PRN as needed for sleep, Start date: 10/09/11 15:26:00, Duration: 30 day, Stop date: 11/08/11 15:25:00 [facility] Tylenol 2011-10-09 17:08:00 No Kaisen Fang 650 mg, 2 tab, Route: PO, Drug form: TAB, Q6H, PRN Pain, Start date: 10/09/11 12:08:00, Duration: 30 day, Stop date: 11/08/11 12:07:00 Ashley t Saline Flush 0.9% 2011-10-09 14:00:00 No Kaisen Fang 5 ml, Route: IVP, Drug Form: INJ, Q12H, Start date: 10/09/11 9:00:00, Duration: 30 day, Stop date: 11/07/11 21:00:00 [facility] Benadryl 2011-10-09 10:50:00 No Kaisen Fang 50 mg, Route: IVP, ONCE, benadryl 50mg ivp x1 dose now, Start date: 10/09/11 5:50:00, Stop date: 10/09/11 5:50:00 [facility] Benadryl 2011-10-09 10:46:00 No Kaisen Fang 50 mg, 1 mL, Route: IVP, Drug form: INJ, ONCE, PRN Itching, Start date: 10/09/11 5:46:00 [facility] trazodone 50 mg oral tablet 2011-10-09 09:57:12 Yes David en Fang 50 mg, 1 tab, PO, PRN, as needed for insomnia if ambien does not work, Substitution Allowed, TAB [facility] Ambien CR 12.5 mg oral tablet, extended release 2011-10-09 09:56:22 Yes Kaisen Fang 25 mg, 2 tab, PO , Bedtime, PRN, for sleep, Substitution Allowed, ERTAB [facility] nitroglycerin 0.4 mg sublingual tablet 2011-10-09 09:49:00 No Kaisen Fang 0.4 mg, 1 tab, Route: Dr WILL ug form: TAB, Q5Min, PRN Chest Pain, Start date: 10/09/11 4:49:00, Duration: 30 day, Stop date: 11/08/11 4:48:00 [facility] atropine 2011-10-09 09:48:00 No Kaisen Fang 0.5 mg, 5 mL, Route: IVP, Drug form: INJ, PRN, PRN Bradycardia, Start date: 10/09/11 4:48:00, Duration: 30 day, Stop date: 11/08/11 4:47:00 [facility] Saline Flush 0.9% 2011-10-09 09:44:00 No Kaisen Fang 5 ml, Route: IVP, Drug Form: INJ, PRN, PRN Line Flush, Start date: 10/09/11 4:44:00, Duration: 30 day, Stop date: 11/08/11 4:43:00 [facility] acetaminophen-hydrocodone 325 mg-5 mg oral tablet 08:40:00 No Antonio Hope 1 tab, Rout e: PO, ONCE, STAT, Start date: 10/09/11 3:40:00, Stop date: 10/09/11 3:40:00 [facility] potassium chloride 2011-10-09 08:33:00 No Antonio Hope 40 mEq, Route: PO, Drug form: ERTAB, ONCE, Priority: STAT, Start date: 10/09/11 3:33:00, Stop date: 10/09/11 3:33:00 [facility] 1/2NS 1,000 mL 2011-10-09 07:53:00 No Antonio pradhan 1,000 mL, Rate: 125 ml/hr, Infuse over: 8 hr, Route: IV, Dosing Weight 62.727 kg, Total Volume: 1,000, Start date: 10/09/11 2:53:00, Duration: 30 day, Stop date: 11/08/11 2:52:00 [facility] influenza virus vaccine, inactivated 2011-03-31 15:00:00 No SYSTEM SYSTEM 0.5 ml, Route: IM, Drug Form : INJ, Start date: 03/31/11 9:00:00, Stop date: 03/31/11 9:00:00 [facility] raul, MICHAEL Dunn, [facility] Acetaminophen With Codeine (Tylenol With Codeine #4 Ta blet) 1 Each Tablet Acetaminophen With Codeine (Tylenol With Codeine #4 Tablet) 1 Each Tablet Yes 1 Every 6 Hours [facility] Citalopram Hydrobromide (Celexa) 40 Mg Tablet Citalopr am Hydrobromide (Celexa) 40 Mg Tablet Yes 40 Daily [facility] Diazepam 10 Mg Tablet Diazepam 10 Mg Tablet Yes 10 Every 8 Hours [facility] Dicyclomine Hcl (Bentyl) 10 Mg Capsule Dicyclomine Hcl (Bentyl) 10 Mg Capsule Yes 10 Twice A Day [facility] Gabapentin 300 Mg Capsule Gabapentin 300 Mg Capsule Yes 300 Three Times A Day [facility] Hydromorphone Hcl (Dilaudid) 2 Mg Tab Hydromorphone Hcl (Dilaudid) 2 Mg Tab Yes 100 [facility] Promethazine Hcl 50 Mg Tablet Promethazine Hcl 50 Mg Tablet Yes 50 Every 6 Hours [facility] Temazepam 15 Mg Capsule Temazepam 15 Mg Capsule Yes 20 Bedtime [facility] Tizanidine Hcl 4 Mg Capsule Tizanidine Hcl 4 Mg Capsule Yes 4 Three Times A Day [facility] Zolpidem Tartrate (Ambien) 10 Mg Tablet Zolpidem Tartrate (A mbien) 10 Mg Tablet Yes 12.[address] [facility] [place] [place] Albuterol Sulfate (Proair Hfa Inhaler*) 8.5 Gm Inh, 2 Inh Inhalation Albuterol Sulfate (Proair Hfa Inhaler*) 8.5 Gm Inh, 2 Inh Inhalation 2017-07-09 00:00:00 No 2 Daily [facility] Chlordiazepoxide/Clidinium Br (Chlordiaz epoxide-Clidinium Cap) 1 Each Capsule, 1 Each Oral Chlordiazepoxide/Clidinium Br (Chlordiaz epoxide-Clidinium Cap) 1 Each Capsule, 1 Each Oral 2017-07-09 00:00:00 No 1 Da osiris [facility] Chlordiazepoxide/Clidinium Br (Librax Capsule) 1 Each Capsule, 20 Mg Oral Chlordiazepoxide/Clidinium Br (Librax Capsule) 1 Each Capsule, 20 Mg Oral 2017-07-09 00:00:00 No 20 Bedtime [facility] Fentanyl 1 Each Patch.td72, 50 Mcg Topically Fentanyl 1 Each Patch.td72, 50 Mcg Topically 2017-07-09 00:00:00 No 50 Q72 Hrs [facility] Folic Acid 1 Mg Tablet, 3 Mg Oral Folic Acid 1 Mg Tablet, 3 Mg O ral 2017-07-09 00:00:00 No 3 Daily [facility] Mesalamine (Pentasa) 500 Mg Capcr, 1000 Mg Oral [place] (Pentasa) 500 Mg Capcr, 1000 Mg Oral 2017-07-09 00:00:00 No 1000 Thre e Times A Day [facility] Mirtazapine 15 Mg Tab, 15 Mg Oral Mirtazapine 15 Mg Tab, 15 Mg O ral 2017-07-09 00:00:00 No 15 Bedtime [facility] Ondansetron (Zofran Odt) 4 Mg Tab.rapdis, 8 Mg Oral On dansetron (Zofran Odt) 4 Mg Tab.rapdis, 8 Mg Oral 2017-07-09 00:00:00 No 8 Every 6 Hours as needed for Nausea And Vomiting [facility] [place] [place] Pro Plus , 1 Tab Oral Pro Plus , 1 Tab Oral 2017-07-09 00:00:00 No 1 Daily [facility] Rifaximin (Xifaxan) 550 Mg Tablet, 1 Tab Oral Rifaximi n (Xifaxan) 550 Mg Tablet, 1 Tab Oral 2017-07-09 00:00:00 No 1 Twice A Day [facility] Oseltamivir Phosphate (Tamiflu) 75 Mg Cap, 75 Mg Oral Oseltamivir Phosphate (Tamiflu) 75 Mg Cap, 75 Mg Oral 2016-09-03 00:00:00 No 75 Twice A Day [facility] Diphenoxylate Hcl/Atropine (Lomotil Tablet) 1 Each Tab let, 1 Tab Oral Diphenoxylate Hcl/Atropine (Lomotil Tablet) 1 Each Tablet, 1 Tab Oral 2016-08-10 00:00:00 No 1 Daily [facility] Pantoprazole Sodium (Protonix) 40 Mg Tablet.dr, 40 Mg Oral Pantoprazole Sodium (Protonix) 40 Mg Tablet.dr, 40 Mg Oral 2016-08-10 00:00:00 No 40 Daily [facility] Propranolol Hcl 80 Mg Tablet, 120 Mg Oral Propranolol Hcl 80 Mg Tablet, 120 Mg Oral 2016-08-10 00:00:00 No 120 Daily [facility] Cephalexin Monohydrate (Keflex) 500 Mg Capsule, 500 Mg Oral Cephalexin Monohydrate (Keflex) 500 Mg Capsule, 500 Mg Oral 2016-03-15 00:00:00 No 500 Four Times Daily [facility] Clarithromycin (Biaxin) 500 Mg Tablet, 500 Mg Oral Cla rithromycin (Biaxin) 500 Mg Tablet, 500 Mg Oral 2016-03-09 00:00:00 No 500 T wice A Day [facility] Metronidazole 500 Mg Tablet, 500 Mg Oral Metronidazole 500 Mg Tablet, 500 Mg Oral 2016-03-09 00:00:00 No 500 Three Times A Day [facility] Temazepam (Restoril) 30 Mg Capsule, 40 Mg Oral Temazep am (Restoril) 30 Mg Capsule, 40 Mg Oral 2016-03-09 00:00:00 No 40 Bedt anastacia [facility] Acetaminophen With Codeine (Tylenol With Codeine #3 Tablet) 1 Each Tablet, 300 Mg Oral Acetaminophen With Codeine (Tylenol With Codeine #3 Tablet) 1 Each Tablet, 300 Mg Oral 2015-12-01 00:00:00 No 300 Every 4 Hours for Pain [facility] Cyclobenzaprine Hcl (Flexeril) 5 Mg Tablet, 10 Mg Oral Cyclobenzaprine Hcl (Flexeril) 5 Mg Tablet, 10 Mg Oral 2015-12-01 00:00:00 No 1 0 [facility] Ibuprofen (Motrin) 200 Mg Tab, 400 Mg Oral Ibuprofen ( Motrin) 200 Mg Tab, 400 Mg Oral 2015-12-01 00:00:00 No 400 Every 6 Hours [facility] Vital Signs Vital Name Observation Time Observation Value Comments Source Respitory Rate 2016-08-05 10:45:00 [facility] Systolic (mm Hg) 2016-08-05 10:45:00 [facility] Diastolic (mm Hg) 2016-08-05 10:45:00 [facility] Heart Rate 2016-08-05 10:45:00 [facility] Temperature Oral (F) 2016-08-05 10:45:00 96.8 F [facility] Height 2016-08-05 07:44:00 170.18 cm [facility] Weight 2016-08-05 07:44:00 [facility] BMI Calculated 2016-08-05 07:44:00 [facility] Temperature Oral (F) 2016-08-05 07:44:00 97.5 F [facility] Systolic (mm Hg) 2016-08-05 07:44:00 [facility] Diastolic (mm Hg) 2016-08-05 07:44:00 [facility] Heart Rate 2016-08-05 07:44:00 [facility] Respitory Rate 2016-08-05 07:44:00 [facility] Respitory Rate 2016-07-13 18:25:00 [facility] Heart Rate 2016-07-13 18:25:00 [facility] Systolic (mm Hg) 2016-07-13 18:25:00 [facility] Diastolic (mm Hg) 2016-07-13 18:25:00 [facility] Temperature Oral (F) 2016-07-13 18:25:00 97.8 F [facility] Heart Rate 2016-07-13 15:39:00 [facility] Systolic (mm Hg) 2016-07-13 15:39:00 [facility] Diastolic (mm Hg) 2016-07-13 15:39:00 [facility] Respitory Rate 2016-07-13 15:39:00 MH Kristen [facility] Systolic (mm Hg) 2016-07-13 13:05:00 [facility] Diastolic (mm Hg) 2016-07-13 13:05:00 MH [facility] Respitory Rate 2016-07-13 13:05:00 MH [facility] Heart Rate 2016-07-13 13:05:00 MH [facility] Temperature Oral (F) 2016-07-13 10:07:00 98 F [facility] Height 2016-07-13 09:46:00 167.64 cm [facility] BMI Calculated 2016-07-13 09:46:00 MH [facility] Weight 2016-07-13 09:46:00 MH [facility] Temperature Oral (F) 2016-07-13 09:46:00 98.3 F [facility] Respitory Rate 2016-05-10 18:00:00 [facility] Temperature Oral (F) 2016-05-10 18:00:00 98.5 F [facility] Heart Rate 2016-05-10 18:00:00 [facility] Systolic (mm Hg) 2016-05-10 18:00:00 [facility] Diastolic (mm Hg) 2016-05-10 18:00:00 [facility] Respitory Rate 2016-05-10 15:03:00 [facility] Heart Rate 2016-05-10 14:00:00 [facility] Systolic (mm Hg) 2016-05-10 14:00:00 [facility] Diastolic (mm Hg) 2016-05-10 14:00:00 [facility] Respitory Rate 2016-05-10 14:00:00 [facility] Temperature Oral (F) 2016-05-10 14:00:00 98.3 F [facility] Systolic (mm Hg) 2016-05-10 10:00:00 [facility] Diastolic (mm Hg) 2016-05-10 10:00:00 [facility] Heart Rate 2016-05-10 10:00:00 [facility] Temperature Oral (F) 2016-05-10 10:00:00 98.4 F [facility] Weight 2016-05-05 21:42:00 [facility] BMI Calculated 2016-05-05 21:42:00 MH [facility] Height 2016-05-05 21:42:00 167.64 cm [facility] Height 2016-04-30 12:50:00 167.64 cm [facility] BMI Calculated 2016-04-30 12:50:00 [facility] Weight 2016-04-30 12:50:00 [facility] Height 2016-04-29 21:31:00 167.64 cm [facility] BMI Calculated 2016-04-29 21:31:00 [facility] Weight 2016-04-29 21:31:00 [facility] Systolic (mm Hg) 2016-04-12 22:23:00 [facility] Diastolic (mm Hg) 2016-04-12 22:23:00 [facility] Respitory Rate 2016-04-12 22:23:00 [facility] Temperature Oral (F) 2016-04-12 22:23:00 98.0 F [facility] Heart Rate 2016-04-12 22:23:00 [facility] Weight 2016-04-12 19:10:00 [facility] Height 2016-04-12 19:10:00 167.64 cm [facility] BMI Calculated 2016-04-12 19:10:00 [facility] Respitory Rate 2016-04-12 19:09:00 [facility] Systolic (mm Hg) 2016-04-12 19:09:00 [facility] Diastolic (mm Hg) 2016-04-12 19:09:00 [facility] Respitory Rate 2016-04-12 18:23:00 [facility] Temperature Oral (F) 2016-04-12 18:23:00 98.0 F [facility] Heart Rate 2016-04-12 18:23:00 [facility] Systolic (mm Hg) 2016-04-12 18:23:00 [facility] Diastolic (mm Hg) 2016-04-12 18:23:00 [facility] Heart Rate 2016-04-12 12:29:00 [facility] Temperature Oral (F) 2016-04-12 03:21:00 98.4 F [facility] BMI Calculated 2016-04-12 00:20:00 [facility] Weight 2016-04-12 00:20:00 [facility] Height 2016-04-12 00:20:00 167.64 cm [facility] Respitory Rate 2016-04-06 09:26:00 [facility] Systolic (mm Hg) 2016-04-06 09:26:00 [facility] Diastolic (mm Hg) 2016-04-06 09:26:00 [facility] Heart Rate 2016-04-06 09:26:00 [facility] Temperature Oral (F) 2016-04-06 09:26:00 97.8 F [facility] Heart Rate 2016-04-06 04:06:00 [facility] Systolic (mm Hg) 2016-04-06 04:06:00 [facility] Respitory Rate 2016-04-06 04:06:00 [facility] Diastolic (mm Hg) 2016-04-06 04:06:00 [facility] Temperature Oral (F) 2016-04-06 04:06:00 97.7 F [facility] Weight 2016-04-06 00:07:00 [facility] Respitory Rate 2016-04-06 00:07:00 [facility] Temperature Oral (F) 2016-04-06 00:07:00 97.8 F [facility] Height 2016-04-06 00:07:00 165.1 cm [facility] BMI Calculated 2016-04-06 00:07:00 [facility] Heart Rate 2016-04-06 00:07:00 [facility] Systolic (mm Hg) 2016-04-06 00:07:00 [facility] Diastolic (mm Hg) 2016-04-06 00:07:00 [facility] Systolic (mm Hg) 2016-03-03 04:00:00 [facility] Diastolic (mm Hg) 2016-03-03 04:00:00 [facility] Respitory Rate 2016-03-03 04:00:00 [facility] Temperature Oral (F) 2016-03-03 04:00:00 98.2 F [facility] Heart Rate 2016-03-03 04:00:00 [facility] Temperature Oral (F) 2016-03-03 01:26:00 98.0 F [facility] Respitory Rate 2016-03-03 01:26:00 [facility] Systolic (mm Hg) 2016-03-03 01:26:00 [facility] Diastolic (mm Hg) 2016-03-03 01:26:00 [facility] Heart Rate 2016-03-03 01:26:00 [facility] Height 2016-03-03 00:23:00 167.64 cm [facility] BMI Calculated 2016-03-03 00:23:00 [facility] Weight 2016-03-03 00:23:00 [facility] Temperature Oral (F) 2016-03-03 00:23:00 98.0 F [facility] Heart Rate 2016-03-03 00:23:00 [facility] Respitory Rate 2016-03-03 00:23:00 [facility] Systolic (mm Hg) 2016-03-03 00:23:00 [facility] Diastolic (mm Hg) 2016-03-03 00:23:00 [facility] Systolic (mm Hg) 2015-03-21 04:19:00 [facility] Diastolic (mm Hg) 2015-03-21 04:19:00 [facility] Respitory Rate 2015-03-21 04:19:00 [facility] Heart Rate 2015-03-21 04:19:00 [facility] Temperature Oral (F) 2015-03-21 04:19:00 98.0 F [facility] Weight 2015-03-21 01:18:00 [facility] BMI Calculated 2015-03-21 01:18:00 [facility] Respitory Rate 2015-03-21 01:18:00 [facility] Heart Rate 2015-03-21 01:18:00 [facility] Systolic (mm Hg) 2015-03-21 01:18:00 [facility] Diastolic (mm Hg) 2015-03-21 01:18:00 [facility] Temperature Oral (F) 2015-03-21 01:18:00 98.3 F [facility] Height 2015-03-21 01:18:00 167.64 cm [facility] Systolic (mm Hg) 2014-09-30 04:32:00 [facility] Diastolic (mm Hg) 2014-09-30 04:32:00 [facility] Temperature Oral (F) 2014-09-30 04:32:00 98 F [facility] Respitory Rate 2014-09-30 04:32:00 [facility] Heart Rate 2014-09-30 04:32:00 [facility] Heart Rate 2014-09-30 00:10:00 [facility] Systolic (mm Hg) 2014-09-30 00:10:00 [facility] Diastolic (mm Hg) 2014-09-30 00:10:00 [facility] Temperature Oral (F) 2014-09-30 00:10:00 97.9 [facility] Respitory Rate 2014-09-30 00:10:00 [facility] Respitory Rate 2014-09-29 21:14:00 [facility] Systolic (mm Hg) 2014-09-29 21:14:00 [facility] Diastolic (mm Hg) 2014-09-29 21:14:00 [facility] Heart Rate 2014-09-29 21:14:00 [facility] Temperature Oral (F) 2014-09-29 21:14:00 97.5 F [facility] BMI Calculated 2014-09-14 08:04:00 [facility] Weight 2014-09-14 08:04:00 [facility] Height 2014-09-14 08:04:00 167.64 cm [facility] BMI Calculated 2014-09-14 02:59:00 [facility] Weight 2014-09-14 02:59:00 [facility] Height 2014-09-14 02:59:00 170.18 cm [facility] Respitory Rate 2014-02-09 16:16:00 [facility] Heart Rate 2014-02-09 16:16:00 [facility] Systolic (mm Hg) 2014-02-09 16:16:00 [facility] Diastolic (mm Hg) 2014-02-09 16:16:00 [facility] Temperature Oral (F) 2014-02-09 16:16:00 97.6 F [facility] BMI Calculated 2014-02-09 14:50:00 [facility] Height 2014-02-09 14:50:00 167.64 cm [facility] Weight 2014-02-09 14:50:00 [facility] Diastolic (mm Hg) 2014-02-09 14:50:00 [facility] Respitory Rate 2014-02-09 14:50:00 [facility] Heart Rate 2014-02-09 14:50:00 [facility] Temperature Oral (F) 2014-02-09 14:50:00 97.7 F [facility] Systolic (mm Hg) 2014-02-09 14:50:00 [facility] Weight 2014-02-09 14:49:00 [facility] BMI Calculated 2014-02-09 14:49:00 [facility] Height 2014-02-09 14:49:00 167.64 cm [facility] Diastolic (mm Hg) 2013 17:00:00 [facility] Systolic (mm Hg) 2013 17:00:00 [facility] Heart Rate 2013 17:00:00 [facility] Respitory Rate 2013 17:00:00 [facility] Temperature Oral (F) 2013 17:00:00 98.2 F [facility] Diastolic (mm Hg) 2013 13:00:00 [facility] Systolic (mm Hg) 2013 13:00:00 [facility] Respitory Rate 2013 13:00:00 [facility] Temperature Oral (F) 2013 13:00:00 98.0 F [facility] Heart Rate 2013 13:00:00 [facility] Diastolic (mm Hg) 2013 10:51:00 [facility] Systolic (mm Hg) 2013 10:51:00 [facility] Heart Rate 2013 10:51:00 [facility] Temperature Oral (F) 2013 10:51:00 97.4 F [facility] Respitory Rate 2013 05:00:00 [facility] Height 2013-12-10 18:46:00 170.18 cm [facility] BMI Calculated 2013-12-10 18:46:00 [facility] Weight 2013-12-10 18:46:00 [facility] Height 2013-12-07 01:22:00 170.18 cm [facility] BMI Calculated 2013-12-07 01:22:00 [facility] Weight 2013-12-07 01:22:00 [facility] Systolic (mm Hg) 2013-12-07 01:22:00 [facility] Temperature Oral (F) 2013-12-07 01:22:00 98.4 F [facility] Respitory Rate 2013-12-07 01:22:00 [facility] Heart Rate 2013-12-07 01:22:00 [facility] Diastolic (mm Hg) 2013-12-07 01:22:00 [facility] Temperature Oral (F) 2013-09-24 13:03:00 98.3 F [facility] Systolic (mm Hg) 2013-09-24 13:03:00 [facility] Diastolic (mm Hg) 2013-09-24 13:03:00 [facility] Heart Rate 2013-09-24 13:03:00 [facility] Respitory Rate 2013-09-24 13:03:00 [facility] Heart Rate 2013-09-24 09:45:00 [facility] Temperature Oral (F) 2013-09-24 09:45:00 98.1 F [facility] Respitory Rate 2013-09-24 09:45:00 [facility] Systolic (mm Hg) 2013-09-24 09:45:00 [facility] Diastolic (mm Hg) 2013-09-24 09:45:00 [facility] Temperature Oral (F) 2013-09-24 05:35:00 98.2 F [facility] Systolic (mm Hg) 2013-09-24 05:35:00 [facility] Respitory Rate 2013-09-24 05:35:00 [facility] Heart Rate 2013-09-24 05:35:00 [facility] Diastolic (mm Hg) 2013-09-24 05:35:00 [facility] BMI Calculated 2013-09-18 22:44:00 [facility] Height 2013-09-18 22:44:00 167.64 cm [facility] Weight 2013-09-18 22:44:00 [facility] Temperature Oral (F) 2013-09-13 08:26:00 98.1 F [facility] Systolic (mm Hg) 2013-09-13 08:26:00 [facility] Diastolic (mm Hg) 2013-09-13 08:26:00 [facility] Diastolic (mm Hg) 2013-09-13 05:49:00 [facility] Systolic (mm Hg) 2013-09-13 05:49:00 [facility] Temperature Oral (F) 2013-09-13 05:49:00 98.1 F [facility] Systolic (mm Hg) 2013-09-13 04:10:00 [facility] Diastolic (mm Hg) 2013-09-13 04:10:00 [facility] BMI Calculated 2013-09-12 22:26:00 [facility] Height 2013-09-12 22:26:00 167.64 cm [facility] Weight 2013-09-12 22:26:00 [facility] Respitory Rate 2013-09-12 22:26:00 [facility] Temperature Oral (F) 2013-09-12 22:26:00 98.2 F [facility] Heart Rate 2013-09-12 22:26:00 [facility] Temperature Oral (F) 2013-09-10 12:00:00 97.9 F [facility] Heart Rate 2013-09-10 12:00:00 [facility] Respitory Rate 2013-09-10 12:00:00 [facility] Diastolic (mm Hg) 2013-09-10 12:00:00 [facility] Systolic (mm Hg) 2013-09-10 12:00:00 [facility] Temperature Oral (F) 2013-09-10 09:12:00 97.9 F [facility] Heart Rate 2013-09-10 09:12:00 [facility] Respitory Rate 2013-09-10 09:12:00 [facility] Systolic (mm Hg) 2013-09-10 09:12:00 [facility] Diastolic (mm Hg) 2013-09-10 09:12:00 [facility] Systolic (mm Hg) 2013-09-10 05:25:00 [facility] Diastolic (mm Hg) 2013-09-10 05:25:00 [facility] Heart Rate 2013-09-10 05:25:00 [facility] Temperature Oral (F) 2013-09-10 05:25:00 98.2 F [facility] Respitory Rate 2013-09-10 05:25:00 [facility] Weight 2013-09-02 01:49:00 [facility] BMI Calculated 2013-09-02 01:49:00 [facility] Height 2013-09-02 01:49:00 167.64 cm [facility] Temperature Oral (F) 2013-09-01 12:06:00 97.1 F [facility] Diastolic (mm Hg) 2013-09-01 10:00:00 [facility] Systolic (mm Hg) 2013-09-01 10:00:00 [facility] Respitory Rate 2013-09-01 10:00:00 [facility] Heart Rate 2013-09-01 10:00:00 [facility] Temperature Oral (F) 2013-09-01 10:00:00 97.2 F [facility] Respitory Rate 2013-09-01 08:00:00 [facility] Systolic (mm Hg) 2013-09-01 08:00:00 [facility] Diastolic (mm Hg) 2013-09-01 08:00:00 [facility] Heart Rate 2013-09-01 08:00:00 [facility] Systolic (mm Hg) 2013-09-01 06:00:00 [facility] Diastolic (mm Hg) 2013-09-01 06:00:00 [facility] Respitory Rate 2013-09-01 06:00:00 [facility] Heart Rate 2013-09-01 06:00:00 [facility] Temperature Oral (F) 2013-09-01 04:30:00 97.6 F [facility] Weight 2013-09-01 04:30:00 [facility] Systolic (mm Hg) 2013-06-10 14:00:00 [facility] Diastolic (mm Hg) 2013-06-10 14:00:00 [facility] Temperature Oral (F) 2013-06-10 14:00:00 98.4 F [facility] Respitory Rate 2013-06-10 14:00:00 [facility] Heart Rate 2013-06-10 14:00:00 [facility] Respitory Rate 2013-06-10 12:51:00 [facility] Diastolic (mm Hg) 2013-06-10 10:09:00 [facility] Temperature Oral (F) 2013-06-10 10:09:00 98.0 F [facility] Systolic (mm Hg) 2013-06-10 10:09:00 [facility] Heart Rate 2013-06-10 10:09:00 [facility] Respitory Rate 2013-06-10 10:09:00 [facility] Heart Rate 2013-06-10 06:32:00 [facility] Temperature Oral (F) 2013-06-10 06:32:00 98.0 [facility] Systolic (mm Hg) 2013-06-10 06:32:00 [facility] Diastolic (mm Hg) 2013-06-10 06:32:00 [facility] Weight 2013-06-05 20:50:00 [facility] Height 2013-06-05 20:50:00 170.18 cm [facility] Respitory Rate 2013-02-12 05:17:00 [facility] Systolic (mm Hg) 2013-02-12 05:17:00 [facility] Diastolic (mm Hg) 2013-02-12 05:17:00 [facility] Heart Rate 2013-02-12 05:17:00 [facility] Respitory Rate 2013-02-12 04:45:00 [facility] Systolic (mm Hg) 2013-02-12 04:45:00 [facility] Diastolic (mm Hg) 2013-02-12 04:45:00 [facility] Heart Rate 2013-02-12 04:45:00 [facility] Systolic (mm Hg) 2013-02-12 02:10:00 [facility] Diastolic (mm Hg) 2013-02-12 02:10:00 [facility] Heart Rate 2013-02-12 02:10:00 [facility] Respitory Rate 2013-02-12 02:10:00 [facility] Weight 2013-02-12 01:51:00 [facility] Height 2013-02-12 01:51:00 170.18 cm [facility] Temperature Oral (F) 2013-02-12 01:51:00 98.8 F [facility] Weight 2012-10-19 10:16:00 [facility] Height 2012-10-19 10:16:00 170.18 cm [facility] Weight 2012-09-28 00:56:00 [facility] Height 2012-09-28 00:56:00 170.18 cm [facility] Temperature Oral (F) 2012-08-11 17:15:00 97.9 F [facility] Heart Rate 2012-08-11 17:15:00 [facility] Diastolic (mm Hg) 2012-08-11 17:15:00 [facility] Respitory Rate 2012-08-11 17:15:00 [facility] Systolic (mm Hg) 2012-08-11 17:15:00 [facility] Heart Rate 2012-08-11 15:36:00 [facility] Diastolic (mm Hg) 2012-08-11 15:36:00 [facility] Systolic (mm Hg) 2012-08-11 15:36:00 [facility] Respitory Rate 2012-08-11 15:26:00 [facility] Temperature Oral (F) 2012-08-11 12:36:00 97.9 F [facility] Diastolic (mm Hg) 2012-08-11 12:36:00 [facility] Heart Rate 2012-08-11 12:36:00 [facility] Respitory Rate 2012-08-11 12:36:00 [facility] Systolic (mm Hg) 2012-08-11 12:36:00 [facility] Temperature Oral (F) 2012-08-11 09:05:00 97.6 F [facility] Weight 2012-08-06 21:08:00 [facility] Height 2012-08-06 21:08:00 167.64 cm [facility] Height 2012-08-06 20:32:00 167.64 cm [facility] Weight 2012-08-06 20:32:00 [facility] Diastolic (mm Hg) 2012-07-19 22:00:00 [facility] Heart Rate 2012-07-19 22:00:00 [facility] Systolic (mm Hg) 2012-07-19 22:00:00 [facility] Respitory Rate 2012-07-19 22:00:00 [facility] Temperature Oral (F) 2012-07-19 22:00:00 97.4 F [facility] Diastolic (mm Hg) 2012-07-19 18:00:00 [facility] Systolic (mm Hg) 2012-07-19 18:00:00 [facility] Respitory Rate 2012-07-19 18:00:00 [facility] Heart Rate 2012-07-19 18:00:00 [facility] Temperature Oral (F) 2012-07-19 18:00:00 97.8 F [facility] Systolic (mm Hg) 2012-07-19 14:00:00 [facility] Respitory Rate 2012-07-19 14:00:00 [facility] Temperature Oral (F) 2012-07-19 14:00:00 97.5 F [facility] Diastolic (mm Hg) 2012-07-19 14:00:00 [facility] Heart Rate 2012-07-19 14:00:00 [facility] Height 2012-07-18 05:05:00 167.64 cm [facility] Weight 2012-07-18 05:05:00 [facility] Weight 2012-07-18 05:01:00 [facility] Height 2012-07-18 05:01:00 167.64 cm [facility] Height 2012-07-17 20:14:00 170.18 cm [facility] Weight 2012-07-17 20:14:00 [facility] Weight 2012-07-16 02:49:00 [facility] Height 2012-07-16 02:49:00 170.18 cm [facility] Diastolic (mm Hg) 2012-07-11 21:37:00 [facility] Systolic (mm Hg) 2012-07-11 21:37:00 [facility] Respitory Rate 2012-07-11 21:37:00 [facility] Heart Rate 2012-07-11 21:37:00 [facility] Temperature Oral (F) 2012-07-11 21:37:00 97.7 F [facility] Diastolic (mm Hg) 2012-07-11 13:32:00 [facility] Temperature Oral (F) 2012-07-11 13:32:00 97.9 F [facility] Respitory Rate 2012-07-11 13:32:00 [facility] Systolic (mm Hg) 2012-07-11 13:32:00 [facility] Heart Rate 2012-07-11 13:32:00 [facility] Diastolic (mm Hg) 2012-07-11 10:25:00 [facility] Temperature Oral (F) 2012-07-11 10:25:00 97.7 F [facility] Respitory Rate 2012-07-11 10:25:00 [facility] Systolic (mm Hg) 2012-07-11 10:25:00 [facility] Heart Rate 2012-07-11 10:25:00 [facility] Height 2012-07-09 17:58:00 170.18 cm [facility] Weight 2012-07-09 17:58:00 [facility] Weight 2012-07-08 07:25:00 [facility] Height 2012-07-07 05:32:00 170.18 cm [facility] Weight 2012-07-07 05:32:00 [facility] Height 2012-05-31 13:41:00 170.18 cm [facility] Weight 2012-05-31 13:41:00 [facility] Weight 2012-04-08 20:14:00 [facility] Height 2012-04-08 20:14:00 167.64 cm [facility] Height 2012-02-16 20:44:00 170.18 cm [facility] Weight 2012-02-16 20:44:00 [facility] Height 2012-01-25 02:28:00 167.64 cm [facility] Weight 2012-01-25 02:28:00 [facility] Systolic (mm Hg) 2012-01-02 15:02:00 [facility] Heart Rate 2012-01-02 15:02:00 [facility] Diastolic (mm Hg) 2012-01-02 15:02:00 [facility] Respitory Rate 2012-01-02 14:15:00 [facility] Systolic (mm Hg) 2012-01-02 14:15:00 [facility] Diastolic (mm Hg) 2012-01-02 14:15:00 [facility] Respitory Rate 2012-01-02 14:00:00 [facility] Diastolic (mm Hg) 2012-01-02 14:00:00 [facility] Systolic (mm Hg) 2012-01-02 14:00:00 [facility] Respitory Rate 2012-01-02 13:45:00 [facility] Heart Rate 2012-01-02 13:00:00 [facility] Temperature Oral (F) 2012-01-02 13:00:00 97.5 F [facility] Heart Rate 2012-01-02 09:00:00 [facility] Temperature Oral (F) 2012-01-02 09:00:00 95.5 F [facility] Temperature Oral (F) 2012-01-02 05:00:00 95.4 F [facility] Height 2011-12-31 22:20:00 170.18 cm [facility] Weight 2011-12-31 22:20:00 [facility] Weight 2011-12-31 03:33:00 [facility] Weight 2011-10-16 06:11:00 [facility] Height 2011-10-16 06:11:00 167.64 cm [facility] Systolic (mm Hg) 2011-10-10 17:00:00 [facility] Diastolic (mm Hg) 2011-10-10 17:00:00 [facility] Temperature Oral (F) 2011-10-10 17:00:00 98.3 F [facility] Heart Rate 2011-10-10 17:00:00 [facility] Respitory Rate 2011-10-10 17:00:00 [facility] Respitory Rate 2011-10-10 09:00:00 [facility] Systolic (mm Hg) 2011-10-10 09:00:00 [facility] Temperature Oral (F) 2011-10-10 09:00:00 97.6 F [facility] Heart Rate 2011-10-10 09:00:00 [facility] Diastolic (mm Hg) 2011-10-10 09:00:00 [facility] Heart Rate 2011-10-10 05:00:00 [facility] Respitory Rate 2011-10-10 05:00:00 [facility] Temperature Oral (F) 2011-10-10 05:00:00 98.4 F [facility] Systolic (mm Hg) 2011-10-10 05:00:00 [facility] Diastolic (mm Hg) 2011-10-10 05:00:00 [facility] Height 2011-10-09 03:25:00 170.18 cm [facility] Weight 2011-10-09 03:25:00 [facility] Procedures Procedure Date / Time Performed Performing Clinician [facility] e X-ray of chest, two views 2019-05-19 00:00:00 GERARDO SARGENT [facility] Computed tomography of chest with contrast 2019-05-19 00:00:00 BRENNAN WILLIAMSON [facility] Biopsy of liver 2011-05-15 00:00:00 [facility] Gastric bypass operation [facility] Abdominal [facility] Hernia repair [facility] Back fusion [facility] Internal and external hemorrhoidectomy and anal fissurectomy [facility] Cholecystectomy [facility] Foot joint operations [facility] Tonsil operation [facility] Abdominal hysterectomy [facility] Back fusion [facility] Cholecystectomy [facility] Gastric bypass operation [facility] Hernia repair [facility] Internal and external hemorrhoidectomy and anal fissurectomy [facility] Hysterectomy [facility] Plan of Care Planned Activity Planned Date Details Comments Source Future Scheduled Test 2019-12-14 00:00:00 INFLUENZA VACCINE [code = INFLUENZA VACCINE] Juan Carlos Woodall Future Scheduled Test 1996-12-16 00:00:00 Screening for danielle gnant neoplasm of cervix (procedure) [code = [id number]] Juan Carlos looney Encounters Start Date/Time End Date/Time Encounter Type Admission Type Att[facility] Care Department Encounter ID Source 2019-10-09 08:02:39 OD [facility] [id number] MICHAEL Santiagoadena 2019-07-25 16:32:00 2019-07-25 18:22:00 Departed Emergency Room 1 SIMA LINARES [facility] [id number] [facility] 2019-05-19 12:57:00 2019-05-19 18:33:00 Departed Emergency Room 1 BRENNAN SOUSA [facility] [id number] [facility] 2018-09-18 16:58:00 2018-09-19 01:29:00 Departed Emergency Room 1 SHY CAMPOS [facility] [id number] [facility] 2017-07-11 23:20:00 2017-07-11 23:58:00 Departed Emergency Room [facility] [id number] [facility] 2017-07-09 18:43:00 2017-07-09 20:45:00 Departed Emergency Room [facility] [id number] [facility] 2016-08-05 07:41:00 2016-08-05 11:06:00 Emergency [facility] [id number] [facility] 2016-08-05 02:41:00 2016-08-05 06:06:00 [facility] [id number] 2016-07-13 09:45:00 2016-07-13 18:27:00 Observation [facility] [id number] [facility] 2016-07-13 03:45:00 2016-07-13 12:27:00 [facility] [id number] 2016-04-29 21:29:00 2016-05-11 00:14:00 Inpatient [facility] [id number] [facility] 2016-04-29 15:29:00 2016-05-10 18:14:00 [facility] Lu [facility] [id number] 2016-04-12 00:18:00 2016-04-12 23:16:00 Observation [facility] [id number] [facility] 2016-04-11 18:18:00 2016-04-12 17:16:00 Outpatient Tesfaye Verdin [facility] [id number] 2016-04-05 23:56:00 2016-04-06 09:33:00 Emergency [facility] [id number] [facility] 2016-04-05 17:56:2016-04-06 03:33:00 Outpatient Yanet Smith [facility] [id number] 2016-03-03 00:21:00 2016-03-03 04:34:00 Emergency [facility] [id number] [facility] 2016-03-02 19:21:00 2016-03-02 23:34:00 Outpatient Royer Stallworth [facility] [id number] 2015-03-21 01:16:00 2015-03-21 04:46:00 EC Emergency Center [facility] [id number] [facility] 2015-03-20 19:16:00 2015-03-20 22:46:00 Outpatient Yanet Smith [facility] [id number] 2014-09-14 02:58:00 2014-09-30 05:30:00 Inpatient [facility] [id number] [facility] 2014-09-13 21:58:00 2014-09-30 00:30:00 Outpatient Morgan Ochoa [facility] [id number] 2014-02-09 14:48:00 2014-02-09 16:25:00 EC Emergency Center [facility] [id number] [facility] 2014-02-09 09:48:00 2014-02-09 11:25:00 Outpatient Prasad Killian [facility] [id number] 2013-12-12 12:07:00 2013 19:27:00 Inpatient [facility] [id number] [facility] 2013-12-12 07:07:00 2013 14:27:00 Outpatient Hugh Bolaños [facility] [id number] 2013-12-07 01:13:00 2013-12-07 07:31:00 [facility] Emergency Center [facility] [id number] [facility] 2013-12-06 20:13:00 2013-12-07 02:31:00 Outpatient Yefri Riojas [facility] [id number] 2013-12-05 15:47:00 2013-12-06 04:59:00 Outpt Diag Services [facility] [place] [id number] [facility] [place] 2013-12-05 10:47:00 2013-12-05 23:59:00 Outpatient Hugh Bolaños [facility] [id number] 2013-09-18 21:56:00 2013-09-24 16:35:00 Inpatient [facility] [id number] [facility] 2013-09-18 16:56:00 2013-09-24 11:35:00 Outpatient Hugh Bolaños [facility] [id number] 2013-09-12 22:16:00 2013-09-13 08:29:00 [facility] [facility] [id number] [facility] 2013-09-12 17:16:00 2013-09-13 03:29:00 Outpatient Antonio Hope MHIEALT MHIEALT [id number] 2013-09-02 01:06:00 2013-09-10 14:55:00 Inpatient MHIEALT [facility] [id number] [facility] 2013-09-01 20:06:00 2013-09-10 09:55:00 Outpatient Hugh Bolaños MHIEALT MHIEALT [id number] 2013-09-01 04:27:00 2013-09-01 12:09:00 EC Emergency Center [facility] [id number] [facility] 2013-08-31 23:27:00 2013-09-01 07:09:00 Outpatient Yefri Riojas MHIEALT MHIEALT [id number] 2013-06-06 12:16:00 2013-06-10 12:50:00 Inpatient MHIEAL T [facility] [id number] [facility] 2013-06-06 12:16:00 2013-06-10 12:50:00 Outpatient MHIEA LT MHIEALT [id number] [facility] 2013-02-11 20:47:00 2013-02-12 06:00:00 Emergency MHIEAL T [facility] [id number] [facility] 2012-10-19 05:15:00 2012-10-19 06:53:00 Emergency MHIEAL T [facility] [id number] [facility] 2012-09-27 19:55:00 2012-09-28 02:23:00 Emergency MHIEALT [facility] [id number] [facility] 2012-08-07 10:25:00 2012-08-11 14:40:00 Inpatient MHIEAL T [facility] [id number] [facility] 2012-07-17 18:58:00 2012-07-19 17:45:00 OU MHIEALT [facility] [id number] [facility] 2012-07-15 20:48:00 2012-07-16 03:19:00 Emergency MHIEAL T [facility] [id number] [facility] 2012-07-10 16:30:00 2012-07-11 19:15:00 Inpatient MHIEAL T [facility] [id number] [facility] 2012-07-08 01:23:00 2012-07-08 01:24:00 Emergency MHIEAL T [facility] [id number] [facility] 2012-07-06 23:32:00 2012-07-07 03:20:00 Emergency MHIEAL T [facility] [id number] [facility] 2012-05-31 07:40:00 2012-05-31 09:46:00 Emergency MHIEAL T [facility] [id number] [facility] 2012-04-08 14:13:00 2012-04-08 19:04:00 Emergency MHIEAL T [facility] [id number] [facility] 2012-03-07 09:35:00 2012-03-07 23:59:00 OD MHIEALT MHIEALT [id number] [facility] 2012-02-16 15:43:00 2012-02-16 19:33:00 Emergency MHIEAL T [facility] [id number] [facility] 2012-01-24 21:26:00 2012-01-25 01:41:00 Emergency MHIEAL T [facility] [id number] [facility] 2011-12-31 20:56:00 2012-01-02 15:26:00 OU MHIEALT [facility] [id number] [facility] 2011-12-30 22:32:00 2011-12-31 01:07:00 Emergency MHIEAL T [facility] [id number] [facility] 2011-10-16 01:09:00 2011-10-16 02:27:00 Emergency MHIEAL T [facility] [id number] [facility] 2011-10-09 03:33:00 2011-10-10 15:35:00 OU MHIEALT [facility] [id number] [facility] Results Test Description Test Time Test Comments Results Result Comments Source SHOULDER 2+VW RT - HOPD 2019-07-25 17:39:00 [place] [address] Patient Name: LOGAN MCCRACKEN MR #: [id number] : 1975 Age/Sex: 43/F Req #: [id number] Adm Physician: Ordered by: SIMA LINARES MD Report #: [id number] Location: [facility] Room/Bed: Procedure: [id number] HOPD/SHOULDER 2+VW RT - HOPD Exam Date: 07/25/19 Exam Time: 1725 REPORT STATUS: Signed EXAMINATION: SHOULDER 2+VW RT - HOPD INDICATION: Shoulder pain COMPARISON: None FINDINGS: No acute fracture or dislocation. Alignment appears anatomic. No substantial degenerative change. Partially visualized right lung appears clear. IMPRESSION: No acute osseous injury. Signed by: Stew Mitchell MD on 07/25/2019 5:41 PM Dictated By: STEW MITCHELL MD 40 Transcribed By: ANUSHKA on 07/25/191740 COPY TO: SIMA LINARES MD CXR 2 VIEW - HOPD 2019-07-25 17:38:00 [place] [address] Patient Name: LOGAN MCCRACKEN MR #: [id number] : 1975 Age/Sex: 43/F Req #: [id number] Adm Physician: Ordered by: SIMA LINARES MD Report #: [id number] Location: [facility] Room/Bed: Procedure: [id number] HOPD/CXR 2 VIEW - HOPD Exam Date: 07/25/19 Exam Time: 1725 REPORT STATUS: Signed EXAMINATION: CXR 2 VIEW - HOPD INDICATION: Chest pain COMPARISON: None FINDINGS: LINES/TUBES:None LUNGS:The lungs are well-inflated. No focal consolidation or pulmonary edema. PLEURA:No pleural effusion or pneumothorax. MEDIASTINUM:The cardiomediastinal silhouette appears normal in size and shape. BONES/SOFT TISSUES:No acute osseous injury. ABDOMEN:No free air under the diaphragm. Status post cholecystectomy. IMPRESSION: No focal pneumonia or pulmonary edema. Signed by: Stew Mitchell MD on 07/25/2019 5:39 PM Dictated By: STEW MITCHELL MD 38 Transcribed By: ANUSHKA on 07/25/191738 COPY TO: SIMA LINARES MD Blood Culture 2019-05-24 14:54:00 Test Item Blood Culture (test code = 31250886) NO GROWTH AFTER 5 DAYS, FINAL REPORT [facility] [id number] 17:11:00* Test Item Value Reference Range Interpretation Comments Urine WBC (test code = 5821-4) 0-5 0-5 [facility] [id number] 17:11:00* Test Item Value Reference Range Interpretation Comments Urine RBC (test code = 21068-9) 0-5 0-5 [facility] CenterU[facility] Yjvjrlie8013-20-39 17:11:00* Test Item Value Reference Range Interpretation Comments Urine Bacteria (test code = 89305-7) FEW NONE [facility] CenterU[facility] Epithelial Irhxr8610-45-97 17:11:00 * Test Item Value Reference Range Interpretation Comments Urine Epithelial Cells (test code = 18316-4) FEW NONE [facility] CenterU[facility] Rgla7126-23-37 17:07:00* Test Item Value Reference Range Interpretation Comments Urine Test (test code = 2106-3) NEGATIVE NEGATIVE [facility] CenterU[facility] Vzfop2108-45-56 17:06:00* Test Item Value Reference Range Interpretation Comments Urine Color (test code = 5778-6) YELLOW YELLOW [facility] CenterUrine Duflawy6871-83-69 17:06:00* Test Item Value Reference Range Interpretation Comments Urine Clarity (test code = 81687-4) SL CLOUDY CLEAR [facility] CenterU[facility] Specific Tmnjfun2089-77-68 17:06:00 * Test Item Value Reference Range Interpretation Comments Urine Specific Clarkson (test code = 5811-5) 1.020 1.010-1.02 5 [facility] CenterU[facility] jQ0922-84-79 17:06:00* Test Item Value Reference Range Interpretation Comments Urine pH (test code = 39422-3) 6 5-7 [facility] Leukocyte Nivggpen0568-11-43 17:06:00* Test Item Value Reference Range Interpretation Comments Urine Leukocyte Esterase (test code = 64853-7) NEGATIVE NEGATIV E [facility] CenterU[facility] Ayvmgwm1608-22-28 17:06:00* Test Item Value Reference Range Interpretation Comments Urine Nitrite (test code = 33304-1) NEGATIVE NEGATIVE [facility] CenterU[facility] Ktanoyq8741-24-47 17:06:00* Test Item Value Reference Range Interpretation Comments Urine Protein (test code = 04306-8) NEGATIVE NEGATIVE [facility] CenterU[facility] Glucose (UA)2019-05-19 17:06:00* Test Item Value Reference Range Interpretation Comments Urine Glucose (UA) (test code = 87100-7) NEGATIVE NEGATIVE [facility] CenterU[facility] Nlyhwje6295-68-88 17:06:00* Test Item Value Reference Range Interpretation Comments Urine Ketones (test code = 95712-9) NEGATIVE NEGATIVE [facility] CenterUrine Mhyhspmummlz3425-41-07 17:06:00* Test Item Value Reference Range Interpretation Comments Urine Urobilinogen (test code = 91451-7) 0.2 0.2-1 [facility] CenterUrine Zbwhrsdxg6534-25-92 17:06:00* Test Item Value Reference Range Interpretation Comments Urine Bilirubin (test code = 1977-8) NEGATIVE NEGATIVE [facility] CenterUrine Jenrw2858-30-42 17:06:00* Test Item Value Reference Range Interpretation Comments Urine Blood (test code = 26446-6) NEGATIVE NEGATIVE [facility] CenterInfluenza Virus Types A,B Antigen 2019-05-19 16:33:00* Test Item Value Reference Range Interpretation Comments Influenza Virus Types A,B Antigen (test code = 21707-3) NEGATIVE NEGATIVE [facility] CenterCT CHEST [id number] 16:14:00 [place] [address] Patient Name: LOGAN MCCRACKEN MR #: [id number] : 1975 Age/Sex: 43/F Req #: [id number] Adm Physician: Ordered by: BRENNAN SOUSA DO Report #: [id number] Location: ER Room/Bed: Procedure: [id number] CT/CT CHEST W Exam Date: 05/19/19 Exam Time: 1556 REPORT STATUS: Signed EXAM: CT [address] WITH contrast 05/19/2019 3:11 PM INDICATION: cough, ?peribronchia cu ffing COMPARISON: Same day chest radiograph. TECHNIQUE: Chest was sca nned utilizing a multidetector helical scanner from the lung apex through the level of the adrenal glands without administration of IV contrast. Coronal and sagittal reformations were obtained. Routine protocol was performed. IV CONTRAST: 100 mL of Isovue-370 COMPLICATIONS: None RADIATION DOSE: Total DLP: 515.37 mGy*cm Estimated effective dose: (DLP x 0.014 x size factor) mSv CTDIvol has been reviewed. It is below the limits set by the Radiation Protocol Committee (RPC). FINDINGS: LINES/ TUBES: Non e. LUNGS AND AIRWAYS: Mild focal areas of bilateral lower lobe patchy grou ndglass opacities such as in series 3, image 39. Mild bibasilar atelectasis/sc arring. Airways are normal. PLEURA: The pleural spaces are clear. HE ART AND MEDIASTINUM: The thyroid gland is normal. Few scattered prominent med iastinal lymph nodes, likely reactive. No hilar or axillary lymphadenopathy. The heart is normal in size.. There is no pericardial effusion. UPPER ABDOMEN: Unremarkable.. Partially seen surgical clips adjacent to proximal sto mach. BONES: The visualized bony thorax is within normal limits. SOFT TISSUES: Unremarkable. IMPRESSION: Focal small areas of bilateral lower lobe patchy opacities, concerning for developing pneumonia. Signed by: Dr. Bryant Hendrix MD on 05/19/2019 4:19 PM Dictated By: BRYANT HENDRIX MD 1619 Transcribed By: DOMINIC OWENS on 05/19/19 1619 COPY TO: BRENNAN SOUSA DO Differential Total Cells Lvxgwmg1573-38-45 15:55:00* Test Item Value Reference Range Interpretation Comments Differential Total Cells Counted (test code = Differen tial Total Cells Counted) 100 [facility] CenterNeutrophils % (Manual)2019-05-19 15:55:00 * Test Item Value Reference Range Interpretation Comments Neutrophils % (Manual) (test code = 46490-9) 62 40-74 [facility] CenterBand Neutrophils %2019-05-19 15:55:00* Test Item Value Reference Range Interpretation Comments Band Neutrophils % (test code = 764-1) 5 [facility] CenterLymphocytes % (Manual)2019-05-19 15:55:00 * Test Item Value Reference Range Interpretation Comments Lymphocytes % (Manual) (test code = 737-7) 20 19-48 [facility] CenterMonocytes % (Manual)2019-05-19 15:55:00* Test Item Value Reference Range Interpretation Comments Monocytes % (Manual) (test code = 744-3) 8 3.4-9.0 [facility] CenterEosinophils % (Manual)2019-05-19 15:55:00 * Test Item Value Reference Range Interpretation Comments Eosinophils % (Manual) (test code = 714-6) 5 0-7 [facility] CenterPlatelet Mfcixstl1857-10-01 15:55:00* Test Item Value Reference Range Interpretation Comments Platelet Estimate (test code = 71298-2) ADEQUATE [facility] CenterPlatelet Morphology Ondocse2375-56-57 15:55:00* Test Item Value Reference Range Interpretation Comments Platelet Morphology Comment (test code = 47197-7) NORMAL [facility] CenterRed Cell Morphology Yelyejn3124-99-33 15:55:00* Test Item Value Reference Range Interpretation Comments Red Cell Morphology Comment (test code = 6742-1) NORMAL [facility] CenterLactic Acid Siyuy9799-60-89 15:19:00* Test Item Value Reference Range Interpretation Comments Lactic Acid Level (test code = Lactic Acid Level) 0.8 0.5- 2.0 [facility] CenterActivated Partial Thromboplast Time 2019-05-19 15:12:00* Test Item Value Reference Range Interpretation Comments Activated Partial Thromboplast Time (test code = 67252-5) 33.0 23.8-35.5 [facility] CenterWhite Blood Jgdde8806-22-34 15:10:00* Test Item Value Reference Range Interpretation Comments White Blood Count (test code = 6690-2) 9.16 4.8-10.8 [facility] CenterRed Blood Fueng6184-71-45 15:10:00* Test Item Value Reference Range Interpretation Comments Red Blood Count (test code = 789-8) 3.59 3.6-5.1 [facility] CenterHemoglobin2020-01-05 15:10:00* Test Item Value Reference Range Interpretation Comments Hemoglobin (test code = 21534-4) 11.1 12.0-16.0 [facility] CenterHematocrit2020-01-05 15:10:00* Test Item Value Reference Range Interpretation Comments Hematocrit (test code = 4544-3) 34.9 34.2-44.1 [facility] Medical CenterMean Corpuscular Jtopge0713-40-89 15:10:00* Test Item Value Reference Range Interpretation Comments Mean Corpuscular Volume (test code = 787-2) 97.2 81-99 [facility] CenterMean Corpuscular Zroyzswgdu3174-18-19 15:10:00* Test Item Value Reference Range Interpretation Comments Mean Corpuscular Hemoglobin (test code = 785-6) 30.9 28-32 [facility] Hemoglobin Concent 2019-05-19 15:10:00* Test Item Value Reference Range Interpretation Comments Mean Corpuscular Hemoglobin Concent (test code = 786-4) 31.8 31-35 [facility] CenterRed Cell Distribution Vywow3785-86-06 15:10:00* Test Item Value Reference Range Interpretation Comments Red Cell Distribution Width (test code = 02253-1) 13.8 11.7 -14.4 [facility] CenterPlatelet Mfyzw4738-33-59 15:10:00* Test Item Value Reference Range Interpretation Comments Platelet Count (test code = 777-3) 265 140-360 [facility] CenterNeutrophils (%) (Auto)2019-05-19 15:10:00 * Test Item Value Reference Range Interpretation Comments Neutrophils (%) (Auto) (test code = 16208-3) 68.1 38.7-80.0 [facility] CenterLymphocytes (%) (Auto)2019-05-19 15:10:00 * Test Item Value Reference Range Interpretation Comments Lymphocytes (%) (Auto) (test code = 736-9) 20.0 18.0-39.1 [facility] CenterMonocytes (%) (Auto)2019-05-19 15:10:00* Test Item Value Reference Range Interpretation Comments Monocytes (%) (Auto) (test code = 5905-5) 7.4 4.4-11.3 [facility] CenterEosinophils (%) (Auto)2019-05-19 15:10:00 * Test Item Value Reference Range Interpretation Comments Eosinophils (%) (Auto) (test code = 713-8) 4.0 0.0-6.0 [facility] CenterBasophils (%) (Auto)2019-05-19 15:10:00* Test Item Value Reference Range Interpretation Comments Basophils (%) (Auto) (test code = 706-2) 0.2 0.0-1.0 [facility] Medical CenterIM GRANULOCYTES %2019-05-19 15:10:00* Test Item Value Reference Range Interpretation Comments IM GRANULOCYTES % (test code = IM GRANULOCYTES %) 0.3 0.0- 1.0 [facility] CenterNeutrophils # (Auto)2019-05-19 15:10:00* Test Item Value Reference Range Interpretation Comments Neutrophils # (Auto) (test code = 751-8) 6.2 2.1-6.9 [facility] CenterLymphocytes # (Auto)2019-05-19 15:10:00* Test Item Value Reference Range Interpretation Comments Lymphocytes # (Auto) (test code = 01879-3) 1.8 1.0-3.2 [facility] CenterMonocytes # (Auto)2019-05-19 15:10:00* Test Item Value Reference Range Interpretation Comments Monocytes # (Auto) (test code = 742-7) 0.7 0.2-0.8 [facility] CenterEosinophils # (Auto)2019-05-19 15:10:00* Test Item Value Reference Range Interpretation Comments Eosinophils # (Auto) (test code = 711-2) 0.4 0.0-0.4 [facility] CenterBasophils # (Auto)2019-05-19 15:10:00* Test Item Value Reference Range Interpretation Comments Basophils # (Auto) (test code = 704-7) 0.0 0.0-0.1 [facility] Medical CenterAbsolute Immature Granulocyte (auto 2019-05-19 15:10:00* Test Item Value Reference Range Interpretation Comments Absolute Immature Granulocyte (auto (kwabena t code = Absolute Immature Granulocyte (auto) 0.03 0-0.1 [facility] CenterProthrombin Mejh0797-41-13 15:10:00* Test Item Value Reference Range Interpretation Comments Prothrombin Time (test code = 5902-2) 13.9 11.9-14.5 [facility] CenterProthromb Time International Ratio 2019-05-19 15:10:00* Test Item Value Reference Range Interpretation Comments Prothromb Time International Ratio (test code = 6301-6) 1.02 Oral Anticoagulant Therapy INR Values:1. Low Intensity Therapy 1.5 - 2.02 . Moderate Intensity Therapy 2.0 - 3.03. High Intensity Therapy(1) 2.5 - 3. 54. High Intensity Therapy(2) 3.0 - 4.05. Panic Value INR > 5.0 [facility]odium Tgnaz7599-62-90 14:33:00* Test Item Value Reference Range Interpretation Comments Sodium Level (test code = 2951-2) 137 136-145 [facility] CenterPotassium Gxpww9561-90-21 14:33:00* Test Item Value Reference Range Interpretation Comments Potassium Level (test code = 2823-3) 3.4 3.5-5.1 [facility] CenterChloride Hsska3813-24-01 14:33:00* Test Item Value Reference Range Interpretation Comments Chloride Level (test code = 2075-0) 97 98-107 [facility] Medical CenterCarbon Dioxide Vysoy0599-08-87 14:33:00* Test Item Value Reference Range Interpretation Comments Carbon Dioxide Level (test code = 2028-9) 28 22-29 [facility] Medical CenterAnion Hne5684-58-10 14:33:00* Test Item Value Reference Range Interpretation Comments Anion Gap (test code = 59647-3) 15.4 8-16 [facility] CenterBlood Urea Zlzosvuq5955-55-81 14:33:00* Test Item Value Reference Range Interpretation Comments Blood Urea Nitrogen (test code = 3094-0) 9 7-26 [facility] CenterCreatinine2020-01-05 14:33:00* Test Item Value Reference Range Interpretation Comments Creatinine (test code = 2160-0) 0.74 0.57-1.11 [facility] CenterBUN/Creatinine Rqudx4848-50-14 14:33:00* Test Item Value Reference Range Interpretation Comments BUN/Creatinine Ratio (test code = 3097-3) 12 6- [facility] Medical CenterEstimat Glomerular Filtration Rate 2019-05-19 14:33:00* Test Item Value Reference Range Interpretation Comments Estimat Glomerular Filtration Rate (test code = 356216030) > 60 >60 Ranges were taken from the National Kidney Disease Education Program and the [facility] Kidney Foundation literature.Reference ranges:60 or greater: Tmqtif26-83 ( for 3 consecutive months): Chronic kidney disease 15 or less: Kidney failureMichael E. [facility]y [facility] of [facility] Medical CenterGlucose Ssczz0453-01-59 14:33:00* Test Item Value Reference Range Interpretation Comments Glucose Level (test code = EYD4329) 94 74-118 [facility] CenterCalcium Szcfx1855-69-47 14:33:00* Test Item Value Reference Range Interpretation Comments Calcium Level (test code = 15786-6) 8.6 8.4-10.2 [facility] Medical CenterTotal Dmnkmybrh1840-14-62 14:33:00* Test Item Value Reference Range Interpretation Comments Total Bilirubin (test code = 1975-2) 0.2 0.2-1.2 [facility] Medical CenterAspartate Amino Transf (AST/SGOT) 2019-05-19 14:33:00* Test Item Value Reference Range Interpretation Comments Aspartate Amino Transf (AST/SGOT) (test code = Aspartate Amino Transf (AST/SGOT)) 16 5-34 [facility] Medical CenterAlanine Aminotransferase (ALT/SGPT) 2019-05-19 14:33:00* Test Item Value Reference Range Interpretation Comments Alanine Aminotransferase (ALT/SGPT) (test code = 1742-6) 35 0-55 [facility] Medical CenterTotal Htqzpeq5685-42-94 14:33:00* Test Item Value Reference Range Interpretation Comments Total Protein (test code = 2885-2) 6.0 6.5-8.1 [facility] Medical CenterAlbumin2020-01-05 14:33:00* Test Item Value Reference Range Interpretation Comments Albumin (test code = 1751-7) 3.4 3.5-5.0 [facility] CenterGlobulin2020-01-05 14:33:00* Test Item Value Reference Range Interpretation Comments Globulin (test code = 65986-6) 2.6 2.3-3.5 [facility] CenterAlbumin/Globulin Dxjbp9254-00-98 14:33:00 * Test Item Value Reference Range Interpretation Comments Albumin/Globulin Ratio (test code = 1759-0) 1.3 0.8-2.0 [facility] CenterAlkaline Whvhmshggcj7832-41-25 14:33:00* Test Item Value Reference Range Interpretation Comments Alkaline Phosphatase (test code = 6768-6) 119 40-150 [facility] CenterCreatine Sqgyoj6345-80-10 14:33:00* Test Item Value Reference Range Interpretation Comments Creatine Kinase (test code = 2157-6) 45 29-168 [facility] CenterCreatine Kinase NL8528-39-89 14:33:00* Test Item Value Reference Range Interpretation Comments Creatine Kinase MB (test code = 53408-4) 0.20 0-5.0 [facility] CenterTroponin Q5185-91-12 14:33:00* Test Item Value Reference Range Interpretation Comments Troponin I (test code = BNC7930) 0.004 0-0.300 [facility] CenterCHEST 2 SGXED8356-31-85 14:00:00 [place] [address] Patient Name: LOGAN MCCRACKEN MR #: [id number] : 1975 Age/Sex: 43/F Req #: [id number] Adm Physician: Ordered by: GERARDO SARGENT NP Report #: [id number] Location: ER Room/Bed: Procedure: [id number] DX/CHEST 2 VIEWS Exam Date: 05/19/19 Exam Time: 1341 REPORT STATUS: Signed EXAMINATI ON: CHEST 2 VIEWS INDICATION: rule out pneumonia, R>L, fever, cough, low spo2 [id number] COMPARISON: 09/18/2018 FINDINGS: PA and lateral views TUBES and LINES: None. LUNGS: Lungs are well inflated. Mild central peribronchial cuffing. No definite focal c onsolidation. PLEURA: No pleural effusion or pneumothorax. HEART AND MEDIASTINUM: The cardiomediastinal silhouette is unremarkable. BONES A ND SOFT TISSUES: No acute osseous lesion. Soft tissues are unremarkable. UPPER ABDOMEN: No free air under the diaphragm. IMPRESSION: Mild c entral peribronchial cuffing. No definite focal consolidation. Signed by : Dr. Bryant Hendrix MD on 05/19/2019 2:02 PM Dictated By: BRYANT HENDRIX MD 01 Transcribed By: Malik BENSON on 05/19/191401 COPY TO: GERARDO SARGENT FIELD RADIO TECHNICIAN CHEST 2 [id number] 18:35:00 [place] [address] Patient Name: LOGAN MCCRACKEN MR #: [id number] : 1975 Age/Sex: 42/F Req #: [id number] Adm Physician: Ordered by: AURELIO ESTRELLA FIELD RADIO TECHNICIAN Report #: [id number] Location: ER Room/Bed: Procedure: [id number] D X/CHEST 2 VIEWS Exam Date: Exam Time: REPORT STATUS: Signed EXAMINATION: CHEST 2 VIEWS INDICATION: Shortness of breath. Coughing. Bronchitis. NIMCO RISON: 03/19/2016. FINDINGS: TUBES and LINES: None. LUNGS: Min imal bibasilar subsegmental atelectasis. There is no evidence of pneumonia o r pulmonary edema. PLEURA: No pleural effusion or pneumothorax. HEART AND MEDIASTINUM: The cardiomediastinal silhouette is unremarkable. BRIAN ALISHA AND SOFT TISSUES: No acute osseous lesion. Soft tissues are unremarkable . UPPER ABDOMEN: No free air under the diaphragm. IMPRESSION: N o acute thoracic abnormality. Signed by: Dr. Eh Mckeon M.D. on 09/18/2018 6:36 PM Dictated By: JAZMYN MCKEON MD, MD Electronically Sig osiel By: JAZMYN MCKEON MD, MD on 09/18/181835 Transcribed By: ANUSHKA on 1835 COPY TO: AURELIO ESTRELLA FIELD RADIO TECHNICIAN BIQTKWXNLF6510-90-53 11:12:008MH PctkayxviQWTYPBSJJR0819-12-79 11:12:00<2.9MH [facility] 2016-07-13 11:09:0033.4 AdyicadafPJSLLUANOL6463-62-74 11:09:009.1MH [facility] REMWPYCCOL9493-03-48 11:09:0015.9 RfgnowafhNCRBJAUZJK0191-98-09 11:09:16820ND MiqyfvnzkSLSELKCGJF0030-34-42 11:09:006.0 WlaphqhvmBCZYEDNVDD8471-08-49 11:09:00* Test Item Value Reference Range Interpretation Comments MCH (test code = MCH) 30.8 pg 27.0-31.0 IcupiklhqEETZFSFULX8677-18-44 11:09:0035.7 PphvedaaxJQDJRWUWSC7750-42-62 11:09:0092.3M GalapixjjMZKNDZOTPY1674-88-12 11:09:0011.9 [facility] 2016-07-13 11:09:003.86 SlufolkuiRBIXIZSXPH5867-62-08 11:09:000.1MH [facility] NDBHAZCGXC1006-23-21 11:09:000.8 QliceqdobMCIPTFXMDM2586-87-31 11:09:008.8 GbggkkyvrWQOTDIVYSS4479-01-60 11:09:008.6M RhwfeiayaCJYFXOJOVE8159-54-31 11:09:0038.1M FlgvdiffjETMKNPAKZL6634-49-20 11:09:0043.7 [facility] 2016-07-13 11:09:000.5 KrhosxaymWKODEZSDTM8149-38-84 11:09:000.5[facility] HXCWHIUABD4584-82-80 11:09:002.6MH CyksubjzyYNKVMFKXUD1817-47-29 11:09:002.3MH [facility] ZVZWM4890-82-36 10:47:13016KQ [facility] SQWCV8093-84-87 10:47:46968QY [facility] FMQQQ2179-67-14 10:47:0018MH [facility] PANEL 2016-07-13 10:47:008.6MH [facility] RPMSK6807-62-05 10:47:0086MH [facility] OLBHM3924-50-36 10:47:003.7MH [facility] SNURV4191-41-79 10:47:0064MH [facility] VJNIA2724-94-34 10:47:0029MH [facility] PXEPE9951-06-09 10:47:006.7 [facility] ROVKC9730-06-11 10:47:0010.3MH [facility]EL 2016-07-13 10:47:00<0.1MH [facility] SYOTA3325-45-67 10:47:0023MH [facility] TYZIK3634-87-59 10:47:003.0MH [facility] APDXH7221-48-27 10:47:001.2MH [facility] UVMEZ2310-72-28 10:47:44872CH [facility] QYUME5735-44-66 10:47:004.3MH [facility] BOJBU6865-17-55 10:47:55682YH [facility] PANEL 2016-07-13 10:47:000.71MH [facility] ILWOU1011-39-02 10:47:0016MH [facility] PITXH0798-47-96 10:47:0087 [facility] YQKJF5097-50-24 10:47:00 Clear (07/13/16 4:47 AM)[facility] KEPHO8270-25-24 10:47:00Yellow *NA*(07/13/16 4:47 AM) [facility] RENEU6038-33-06 10:47:005.0 [facility] MHTQU9877-94-53 10:47:00Negative *NA*(07/13/16 4:47 AM)[facility] SBKAO6733-92-06 10:47:001MH [facility] STOOL 2016-07-13 10:47:00Small *ABN*(07/13/16 4:47 AM) [facility] STOOL 2016-07-13 10:47:00Negative (07/13/16 4:47 AM) [facility] STOOL 2016-07-13 10:47:005 [facility] WCFUZ4369-96-48 10:47:003MH [facility] UR[facility] JPZVP9931-73-33 10:47:001.012 [facility] WLRUR7046-50-68 10:47:00Negative (07/13/16 4:47 AM) [facility] PMUS6114-02-06 10:47:00 Negative (07/13/16 4:47 AM) ThvsdvoozMMQOMAUHSP5162-41-47 10:05:0016.4 BtplwwoupVLDZMHHBXA8165-71-38 10:05:008.6M XpskwjzlsUKMEYHARBN3278-36-43 10:05:92859HD MwfbgbogfQLCALWNXMX5075-23-72 10:05:0033.0 [facility] 2016-05-10 10:05:00* Test Item Value Reference Range Interpretation Comments MCH (test code = MCH) 29.9 pg 27.0-31.0 RvixwohysCNQLTHAZKM1982-69-66 10:05:0090.7 FyfswmixpRRLFEHOOFC9869-39-09 10:05:0028.2M LnfovlutuNMWQYXQLTS5142-50-60 10:05:009.3M [facility] 2016-05-10 10:05:003.10 ZjnzgspwsSTUSKISBYE0479-86-80 10:05:0010.2M [facility] LUMQBLARAK9196-06-71 10:05:001.2M UonodwvaiKQTYGPYXPF2740-05-46 10:05:000.7 BxqxokqigOUXZCBGYHV5933-53-57 10:05:002.0 EzvlqymkhWITBLAISXP0276-99-92 10:05:007.2M DhpjgjaddFHJGGCZEFP4652-95-12 10:05:0070.[facility] 2016-05-10 10:05:008.1M QtdlheioeAUNZCQIAAV1372-87-92 10:05:0019.9[facility] GSRXDINKQJ2583-52-77 10:05:000.8 YftauxcyhKELNCYIIFI3363-89-63 10:05:000.1M DsrsueznaDYTNKCOKZN9853-44-41 10:05:000.1MH [facility] QYWQS8926-60-74 13:00:001.1MH [facility] FTUKZ3578-33-21 13:00:002.6MH [facility] PANEL 2016-05-05 13:00:0011.8MH [facility] JXLUR3707-26-47 13:00:0012MH [facility] CPUXL5248-24-51 13:00:90321PX [facility] EZFIV6032-53-44 13:00:008MH [facility] RZYIP1689-47-04 13:00:000.1MH [facility] PEXNO6345-01-87 13:00:0065MH [facility] MERWB2789-45-18 13:00:0043MH [facility] PANEL 2016-05-05 13:00:005.4MH [facility] SRXCK0168-17-83 13:00:002.8 [facility] ZNZHI6351-16-41 13:00:26304AU [facility] TTVPB4895-77-24 13:00:0029MH [facility] FYTXM6746-43-05 13:00:008.0 [facility] GZXDN3244-74-51 13:00:003.8 [facility] ZPTGF3253-83-05 13:00:51132RF [facility] PANEL 2016-05-05 13:00:008 [facility] QYTMW1802-69-03 13:00:000.66MH [facility] VDPJA4081-47-33 13:00:0076 TcazdaqzyNTMESKEOOP1130-58-44 13:00:0047.1MH NslrterumKHQZWQUYTC9174-56-46 13:00:0038.2M EbprpzanfGVEHRKYTVT6419-44-08 13:00:002.0 NgauzwxplOKNEUZUHGK8086-97-27 13:00:000.4 [facility] 2016-05-05 13:00:002.5 UipxvjanzLTSFZQCZUT4300-97-86 13:00:000.4[facility] HEQFRESOXW5616-43-29 13:00:007.0 OrwpcdvhmKNVZCXHMQC4885-07-94 13:00:000.9 GcczeknduFKWGPXBZWH1518-33-63 13:00:006.8 RdqhsksuhYDNBHSMZGV0545-85-83 13:00:00* Test Item Value Reference Range Interpretation Comments MCH (test code = MCH) 29.5 pg 27.0-31.0 OxugvldgxZQGABPJKYC7523-35-15 13:00:0024.6M ZxxjdbcthCHLKNLEOOF7103-49-92 13:00:0090.3M RvjkzhxbiIGVKEMOYWE8121-05-05 13:00:002.73 [facility] 2016-05-05 13:00:008.1M AygtuijnmEMOTXCCFLX5464-32-76 13:00:0015.8[facility] WVIIYLYYCW3667-76-14 13:00:0032.7 DmqgpkhwrPWRQMLCPHO4147-22-73 13:00:008.8 OloittgnmAIDMIFXJZC4387-00-62 13:00:48881FW FttmajjlqTCJGECOGPG5604-41-39 13:00:005.3M QdkjohgowAVOESANQXM2870-42-82 07:31:00* Test Item Value Reference Range Interpretation Comments PTT (test code = PTT) 28.5 s 22.9-35.8 ShurewdkgSNHNJQZCZQ9208-53-01 07:31:000.93MH NlyljwvcyPWPKCWAIOP5669-48-50 07:31:00* Test Item Value Reference Range Interpretation Comments PT (test code = PT) 12.7 s 12.0-14.7 MH [facility] NERRJ4979-70-69 05:10:04169NE [facility] VCDTE6644-95-03 05:10:04436VL [facility] KQJYZ1221-81-84 05:10:0064MH [facility] PANEL 2016-04-30 05:10:00<0.1MH [facility] VYKLL3258-30-85 05:10:0020MH [facility] IVFLB5735-80-43 05:10:008.0MH [facility] VODTU6287-41-21 05:10:0028MH [facility] OMMWO2765-02-64 05:10:77494DV [facility] OAHVA5338-62-87 05:10:004.1MH [facility] WTAPT0032-28-95 05:10:0056MH [facility] PANEL 2016-04-30 05:10:003.1MH [facility] HRVOP6578-73-27 05:10:006.1MH [facility] JDDWR3180-16-60 05:10:82960UZ [facility] RECEY9031-14-29 05:10:000.74MH [facility] GHCWV2807-36-28 05:10:0019MH [facility] URFQZ3465-68-34 05:10:0078MH [facility] ZVVOV9873-37-00 05:10:0012.1MH [facility] PANEL 2016-04-30 05:10:0026MH [facility] DOQLI5468-75-87 05:10:003.0MH [facility] REVTB0037-95-56 05:10:001.0MH NuulogimwUZHCNJUDVHAND4914-09-50 05:10:002MH GlhrscoqxALJNVNDXYN2702-33-01 05:10:000.1MH JisuwpftbNSHLQCRUQL5634-36-61 05:10:000.2MH BkbvuluhzLPCFCZJGGN5786-55-49 05:10:000.6MH [facility] 2016-04-30 05:10:002.0MH JnkplawmzVLWMUACKEQ1800-59-92 05:10:0031.6MH [facility] VSPPJQTNYU7973-82-72 05:10:003.4MH QrlripzkgZTYGJXTNKH2015-79-54 05:10:009.3MH AzqtotvvzEEHGJAXKQF2715-34-47 05:10:003.5 UrczxlvmxBGGMTLILOO2097-50-37 05:10:001.2MH YkymilqwvBNJNWGVLWS2323-59-29 05:10:0054.5 [facility] 2016-04-30 05:10:003.30 IqekhilkyECZACVREWN9732-00-42 05:10:006.4[facility] SXGECVIQRG1802-69-85 05:10:0029.9 PagrrtzwdZUSOAKQQFX7932-55-27 05:10:0090.6M EfoakjdxbBGTPQWKRWX4078-18-86 05:10:009.8 GrbinbztwCBJXPROHSX8832-97-01 05:10:008.5 VqhkxmzeoEGWLZDDHLR2688-87-93 05:10:67484ID [facility] 2016-04-30 05:10:0015.6M PqfyelehoPBIYTXYTSA9566-75-43 05:10:0032.9[facility] KCITRWQJUM1325-15-01 05:10:00* Test Item Value Reference Range Interpretation Comments MCH (test code = MCH) 29.8 pg 27.0-31.0 [facility] ZSAJG2531-15-62 02:56:31Trace *ABN*(04/29/16 8:56 PM) [facility] QMRND5443-56-71 02:56:311 [facility] STOOL 2016-04-30 02:56:315 [facility] UOVRQ1773-32-25 02:56:317.0 [facility] SPQDA2669-88-61 02:56:311.014 [facility] STOOL 2016-04-30 02:56:31Marked *ABN*(04/29/16 8:56 PM) [facility] STOOL 2016-04-30 02:56:31Yellow *NA*(04/29/16 8:56 PM) [facility] STOOL 2016-04-30 02:56:31Negative (04/29/16 8:56 PM) [facility] STOOL 2016-04-30 02:56:31Negative (04/29/16 8:56 PM) [facility] STOOL 2016-04-30 02:56:31Negative *NA*(12/16/16 8:56 PM) [facility] PANEL 2016-04-12 03:18:0090 [facility] HNNLL8601-71-54 03:18:009MH [facility] NKYPL4689-04-79 03:18:0028 [facility] KDQZF2854-37-37 03:18:0060 [facility] KJIFR3077-29-31 03:18:000.2MH [facility] EENVB1970-36-44 03:18:008.8 [facility] SWUKO4199-64-80 03:18:0027 [facility] PANEL 2016-04-12 03:18:68810LZ [facility] FXQXQ3038-92-04 03:18:000.82MH [facility] ENPON6219-32-64 03:[facility]0096[facility] KTGUK1731-01-83 03:18:0017[facility] FBPQE2030-22-23 03:18:86146VPPondville [facility] HospitalCHEM CWMLW1349-83-71 03:18:004.0[facility] LZUPM2134-37-01 03:18:006.7[facility] 2016-04-12 03:18:003.6MH [facility] UNGSB2033-53-64 03:18:001.2MH [facility] LQUBS1061-33-24 03:18:0021[facility] YYMGQ5385-93-16 03:18:003.1MH [facility] RFFLX3033-09-85 03:18:0013.0[facility] HospitalJakxkjkpqJXAGUUJFXBTJJ7579-09-79 03:18:00Negative *NA*(04/11/16 9:18 PM)[facility] HospitalGsftaylbpFSDMOXPASP2864-41-14 03:18:00 * Test Item Value Reference Range Interpretation Comments MCH (test code = MCH) 29.6 pg 27.0-31.0 [facility] HospitalOnjpamkizSMFOSTUVTB8118-25-05 03:18:0032.9 JqfmgzcrhOCHKYPQTKI7849-98-72 03:18:0089.9 IzryqwvcyKZVIMTQGGK2634-67-92 03:18:0030.8 [facility] 2016-04-12 03:18:23803SB YjmglfmtiQSESUDYBTC0880-33-75 03:18:008.7[facility] CFUEPATZON2049-89-79 03:18:0015.4 HqkjunuuqQMSBPQCITH6437-48-97 03:18:003.43 KstvmsyvjRSIQDWUNOP1425-41-64 03:18:007.1M GsumiloptLOFXXAYHEX5258-19-99 03:18:0010.1M LkrljpthjFOTWKBPNDB0271-51-73 03:18:00* Test Item Value Reference Range Interpretation Comments PTT (test code = PTT) 23.9 s 22.9-35.8 SbixmugwzLNXNQDFSGW0033-32-25 03:18:000.93 KgjzlibswJRFCKUTSFJ2615-43-90 03:18:00* Test Item Value Reference Range Interpretation Comments PT (test code = PT) 12.7 s 12.0-14.7 SaifuoediMVPJJJOQZM5648-55-17 03:18:000.5 FxqqnswoiCJYJVFADBX2391-29-49 03:18:000.1M ThvraoyblLYIZFAIAAE7746-80-01 03:18:001.1M [facility] 2016-04-12 03:18:004.3M EvgnvrhegGKTDBZIQVM5396-73-24 03:18:002.1M [facility] HRFPBONTSX1349-58-81 03:18:000.6M FponczcojHIBDUWIKFR9785-12-16 03:18:007.4 WozbrschgPKFCOXQYML6132-11-42 03:18:0029.9 JgqpdzcouAXGOJORRKI0474-37-09 03:18:0061.0 [facility] ZUJTT8524-19-28 03:04:009 [facility] WRUFL7913-37-22 03:04:0060 [facility] WDNDY1907-25-54 03:04:002 [facility] DZFID8856-09-95 03:04:001.012 [facility] STOOL 2016-04-12 03:04:00Clear (04/11/16 9:04 PM) [facility] PTKJI0308-74-18 03:04:007.0 [facility] DXSDP5824-46-90 03:04:00Negative *NA*(04/11/16 9:04 PM) [facility] RDXOC8627-61-91 03:04:00Small *ABN*(04/11/16 9:04 PM) [facility] HNUKA7704-42-94 03:04:00Negative (04/11/16 9:04 PM)MH [facility] JEGPD5899-07-57 03:04:00Negative (04/11/16 9:04 PM)MH [facility] WAPAV0973-67-90 03:04:008MH [facility] STOOL 2016-04-06 06:00:00Negative (04/06/16 12:00 AM)MH [facility] STOOL 2016-04-06 06:00:00Negative (04/06/16 12:00 AM)MH [facility] STOOL 2016-04-06 06:00:00Negative *NA*(04/06/16 12:00 AM)MH [facility] STOOL 2016-04-06 06:00:00<1MH [facility] KNBHV3501-72-93 06:00:00<1MH [facility] XNCPC9650-87-82 06:00:00Trace *ABN*(04/06/16 12:00 AM)MH [facility] CXUHT9360-34-04 06:00:008.0 [facility] STOOL 2016-04-06 06:00:001.003MH [facility] AYJFE8644-45-45 06:00:00Clear (04/06/16 12:00 AM) [facility] PDULA7662-10-30 02:21:88978XV [facility] LTXTJ0556-25-71 02:21:0037 [facility] YPCSE0428-02-06 02:21:003.4MH [facility] ZQWBL2399-72-90 02:21:001.2MH [facility] MHAKU2140-83-74 02:21:0021 [facility] TDZAG4862-55-95 02:21:0011.0 [facility] PANEL 2016-04-06 02:21:63311NO [facility] ZSJZQ8937-84-87 02:21:007.6MH [facility] FVZJF9005-06-02 02:21:004.2MH [facility] POGLZ0748-13-92 02:21:0030 [facility] UBXBF5292-97-26 02:21:0010 [facility] AMRHU1415-02-85 02:21:009.1MH [facility] RNCQF7290-78-48 02:21:0075 [facility] PANEL 2016-04-06 02:21:000.3MH [facility] JMBMW6832-21-66 02:21:79495GP [facility] CVFMW7696-23-12 02:21:004.0 [facility] QYOGX2293-86-51 02:21:0030 [facility] CZWGL1281-39-53 02:21:37179YA [facility] TLXQX3638-64-48 02:21:0013 [facility] PJOGS1029-94-35 02:21:000.63 [facility] PANEL 2016-04-06 02:21:0093 [facility] UMPZV5394-15-30 02:21:003.2MH [facility] IWYWH6023-93-41 02:21:002.7 EyvtcmwymNUPTBDGHVJUFG8465-08-81 02:21:00 Negative *NA*(04/05/16 8:21 PM) CgdcbeuauVMJMXAAPKU7876-23-16 02:21:0013.3M JmcfipefeKYULBXPIGK7793-78-84 02:21:0082.4 AzepkdsuuWLXVJCTYDK2601-22-63 02:21:008.6M HhkwfvgasXUJPZCTFRZ9858-43-75 02:21:000.2M [facility] 2016-04-06 02:21:004.1M PwiwqxgieHUKPIEJQMX1254-76-78 02:21:000.4 [facility] GTXFUYMSOJ8582-02-67 02:21:001.4 CsjhcfdjgZEMVDFGPRK9501-29-40 02:21:66162PQ JbyzykoqaFZGQCGKEQQ4638-82-16 02:21:008.8 JboxgpoexXANTJWLVQB9768-71-98 02:21:0015.9 XxdscpfrqMEDMEKRLNB5736-49-08 02:21:00* Test Item Value Reference Range Interpretation Comments MCH (test code = MCH) 29.4 pg 27.0-31.0 CcstwxlrvMRMWYLDTFZ7152-38-41 02:21:0032.4 LjaevnaimYHNWQDEHLH1465-37-11 02:21:0033.5 WppxzzuaoENHFUNQSAD2102-08-43 02:21:0090.6M [facility] 2016-04-06 02:21:0010.9 BaftpzqmqAUZAEGUADD2634-71-05 02:21:0010.4 [facility] ZMODTOKFOE7841-61-34 02:21:003.70 [facility] VDNAS8636-21-75 01:29:004 [facility] TGFMW4542-45-17 01:29:90279BF [facility] STOOL 2016-03-03 01:29:0017 [facility] NGJMD1763-93-68 01:29:001.011 [facility] ICIME3861-94-13 01:29:00Slight *ABN*(03/02/16 8:29 PM)MH [facility] BXHZO4465-67-28 01:29:00Negative (03/02/16 8:29 PM)MH [facility] FECSK3923-34-83 01:29:00Negative *NA*(03/02/16 8:29 PM) [facility] PHJIK1661-33-65 01:29:005.0 [facility] STOOL 2016-03-03 01:29:00Large *ABN*(03/02/16 8:29 PM) [facility] STOOL 2016-03-03 01:29:00Negative (03/02/16 8:29 PM) [facility] NJCTH4419-70-15 00:34:65453EX [facility] TPUPP0372-30-74 00:34:0023MH [facility] PANEL 2016-03-03 00:34:007.1MH [facility] BVAPD2310-00-02 00:34:008.8MH [facility] GGQJT8435-40-29 00:34:83254PI [facility] CYVHL4693-48-53 00:34:000.61MH [facility] GMTIK4016-77-01 00:34:11397YQ [facility] TIRQE9166-79-02 00:34:004.0MH [facility] NGKBI9834-11-21 00:34:0017MH [facility] PANEL 2016-03-03 00:34:0084MH [facility] EIAKX1126-71-16 00:34:00<0.1MH [facility] OWXYG5526-73-10 00:34:001.1MH [facility] LMRUC7336-94-28 00:34:0035MH [facility] UGORI8475-52-34 00:34:003.7MH [facility] YQBQR9340-92-19 00:34:0013.0MH [facility] RIFAY5666-27-10 00:34:003.4MH [facility] PAN[facility] 2016-03-03 00:34[facility]0028[facility] WDWSK5617-72-22 00:34:0013MH [facility] QJAHV3723-44-79 00:34:0099MH [facility] DRZLP9904-85-65 00:34:0046[facility] ASVYA1700-83-48 00:34:84209BL [facility] XYDQF9337-58-33 00:34:000.1MH JlcvwndpsZECJJXOLYB9761-03-70 00:34:32868QY [facility] 2016-03-03 00:34:009.3M YhizodyfpUDBQCWXHQF3239-41-44 00:34:0015.1M [facility] NHXSPGZLWA4070-45-88 00:34:006.1M EeixdvtjcCYVETWGBQD6938-83-93 00:34:003.68 ZvouaxaavWHIJENAMTG9992-01-40 00:34:0033.8 NvmvgqjylGQFKJKPGZL1751-86-77 00:34:0091.6M SxdwpyogwYEHIIBTEDO1484-05-01 00:34:0011.2M [facility] 2016-03-03 00:34:0033.3M RiikwkicfKDQVJYISJA8304-05-38 00:34:00* Test Item Value Reference Range Interpretation Comments MCH (test code = MCH) 30.5 pg 27.0-31.0 LkvclgvalVWFMKKCABT1604-28-56 00:34:000.5 HjcmggpmqMXVKHHZJOA9867-84-66 00:34:000.2MH BznugrajbRBKCHHPAED7070-63-27 00:34:000.1M [facility] 2016-03-03 00:34:002.7 PgpsyozwxWCKOSDBTGF0334-77-16 00:34:000.9[facility] YARVHTMALZ6629-70-29 00:34:002.6M NuksiofguLTBHORPGUE0569-07-70 00:34:008.3M XfltcjubmLHCXHQNJVE9788-46-41 00:34:0043.4 ZuxvnwvwoBORQZFEHOQ4916-71-89 00:34:003.5 OgvhozvmzLZQAWQPUOI1240-24-07 00:34:0043.9 [facility] 2014-09-26 10:51:53307PU NsjottgdaCDJQVEPGCFDW1606-38-58 10:51:73337NH [facility] ETAQTRUZPJGR4391-08-74 10:51:003.5 BcxdnonkyPHROIVQRMOLG5675-40-62 10:51:53431 SlvthvfibFQLWBTJHXUWF3034-51-08 10:51:0082 EeaawbtowXMMDMQNEACCH6696-21-76 10:51:0027 DuhdrjzuhSOSVRVIAPUTM2534-80-43 10:51:000.7 [facility] 2014-09-26 10:51:0012.5 NjhuuwdjhXUZKVGSKBFFJ6521-89-54 10:51:007.9 IurtquargMRXGNGOCOIQO9708-77-24 10:51:006 HammhqzsnYHLREPEFBYGB9325-11-68 15:02:55280TV FyuvvhjivFHCWAJXUMAVV4068-12-46 15:02:65149DQ [facility] YTKJVAMTHQZW9020-54-19 15:02:004.1M UbzltswsuORBBGAYVIJBI0620-96-04 15:02:0094 DlxmamxziOWEDFGMCHJXH3585-86-41 15:02:0029 AmgwfeyreNJHDVVCZCMDT0159-49-21 15:02:000.3M AyqmezfxvWFCKZRPAJPKR8379-29-37 15:02:35283CQ [facility] SOEUHYQFWTAH7526-23-22 15:02:003.4 NehpzmxlxAZUDHFJKBSQE2739-26-66 15:02:33912 SzhnjfzroIMVVJNFECSOA5433-77-85 15:02:005.6M GchtrdaxnRBUBMRHTYAPI3083-92-23 15:02:008.3M GatibcenmKMBCGULMWCTK1834-66-32 15:02:004 [facility] 2014-09-23 15:02:0062 EueheiqtwHPPOGQNICZBY5490-06-02 15:02:000.8 [facility] BDSEVKSBVIWQ6170-29-93 15:02:0029 ZamhmxacoQRQWHXEASSFM8538-19-06 15:02:0012.1 WildicmrtTDHFOANACVMR4479-90-57 15:02:001.5 FbticxeblQNGWRIXZFLKT3939-48-83 15:02:005 NutowetdcDZLGQRUAPLXJ3789-75-51 15:02:002.2M [facility] 2014-09-23 15:02:000.7 PeebvqiayFGFOJXIFSX1646-65-18 15:02:000.3M [facility] WKWMUJPZPQ4687-63-08 15:02:001.5 JuynfkggmFHKLJZKJQD8943-79-75 15:02:000.9 WhqzycnngYHGIUSEGTC1835-09-68 15:02:0017.0 RrmmwxohqTRHHRCFODR8924-64-99 15:02:001.4 GwgvrbkrgSGAEBLKTHB6466-45-29 15:02:007.9 [facility] 2014-09-23 15:02:0038.1MH RdpgowzhoVZDPFHHPAA4711-35-86 15:02:0036.1MH [facility] PPZOAJMGBC1201-05-80 15:02:00* Test Item Value Reference Range Interpretation Comments MCH (test code = MCH) 32.1 pg 27.0-31.0 LdlpjuibkVQNXXTUZOQ4690-84-76 15:02:0033.5 KttsrhcuuDUJTXLEORZ5222-30-59 15:02:0095.9 VgesqegwnFNNCEAESNZ7979-18-82 15:02:92880NY [facility] 2014-09-23 15:02:0013.5 ByiiautgaUYJIWZBNYZ3341-14-92 15:02:0036.0[facility] HIQCAGFJXO5373-96-37 15:02:0012.0 MpfmgvwwsMLVULFMLOP1224-95-98 15:02:003.75MH QwyqgapbyGACXBASLLT0927-10-91 15:02:0010.2MH JgvznhpumDHUBHRLZDV8744-82-51 15:02:003.8 OhtfxqwcqYNHXREJDUOFY5815-57-61 09:38:0012.6MH [facility] CYQUVYXSNTRR5014-47-24 09:38:001.3M XbsdqrcduCQBMPRRPNHGQ2312-59-90 09:38:004MH JrqqlwupiZXXQRGRVANCY8142-44-87 09:38:002.2MH FmovlpfhjNLBVLLQZZYZF9792-02-33 09:38:003.6MH XdijuggyeXGKCYNUJXNHD1399-15-92 09:38:15013AN [facility] HABWFYZRNMXH2185-80-38 09:38:008.0 MhamgzqzoJBZXAEKAWZVI2079-48-16 09:38:000.8 NmnbvwopyFPIITYZBXEBW2198-48-74 09:38:92700IM LouhfduhwOWUPUVIVUNRW9558-58-22 09:38:0094 AomhhqidtWCFPFOHPYRUH1942-97-70 09:38:000.3M [facility] 2014-09-19 09:38:67473BA WuucvnrcpSSDTXKHSMJXD8541-88-24 09:38:0032MH [facility] MIFCXUCYOTXI7836-29-24 09:38:005.1MH DdeyuuiblLFRZHUUIZFDQ1725-65-57 09:38:002.9 SryyjlnccGIFTAQQIWBXU8380-87-03 09:38:0024 QnawovyqpVRNLNAMGWYQT0053-00-90 09:38:11343NB WgkjxkkrpBYXQFPOXEPCL1599-25-28 09:38:0097 [facility] 2014-09-19 09:38:003MH XwcuwraosEKRIDLQXSU8485-79-66 09:38:0011.0[facility] IZYHJIRDMD1826-62-91 09:38:003.41 IxjzhbyohAJNBXBMFRA3737-98-47 09:38:0096.2M CrjyhwwloDEUEHCNOEH4641-80-20 09:38:0032.8 BqcyoxtdyOIJUEBEXLE0268-31-85 09:38:00* Test Item Value Reference Range Interpretation Comments MCH (test code = MCH) 32.4 pg 27.0-31.0 QfdbpiwajUPJOIWLNES1074-23-02 09:38:0014.0 FlnurhzwxOTLBQNRKKG5429-52-19 09:38:0010.5 OrkbauzoaZNNPLSMJSJ6149-39-55 09:38:0033.7 [facility] 2014-09-19 09:38:66187LA GnpqfrrwrSKNXMZIWYG5165-41-25 09:38:004.1[facility] QLDVJQPKAC2942-40-94 09:38:0051.5 AixxjebrdCPYDYIAOAQ2593-89-22 09:38:0027.2M FylcgljqpGQYHNCCZNO5741-19-68 09:38:000.6MH UtaxryinaYFJAJHDTRO8085-70-36 09:38:0013.5 RodqycnfdELJDYZCMSF6176-69-21 09:38:002.1M [facility] 2014-09-19 09:38:000.3MH JrvfmilvkQPEOWUJIJC8270-44-77 09:38:000.6[facility] IEKUHFAIYQ1511-00-19 09:38:007.2M KzteloqlaPFKQALGSXV6743-02-44 09:38:001.1M [facility]CHE[facility] KJMPE3804-25-73 19:56:003.4 [facility] CGXOA4181-84-40 19:56:002.4[facility] IJOXY5202-65-11 19:56:001.4[facility] PANEL 2014-09-18 19:56:69913OERober[facility] VANQB7511-94-09 19:56:0051 [facility] WENNL4161-89-81 19:56:005.8[facility] XYLPE4828-65-81 19:56:68354NWRobert Breck [facility] GWJEQ4655-78-38 19:56:000.2M[facility] HospitalCHE[facility] ADFSP2214-83-42 19:56:005 WczbkmvfyEOQASHXQGT6647-54-27 10:00:007.1M [facility] 2014-09-16 10:00:0016.2M LttaoqudtQQBZQSBYQZ9167-64-50 10:00:000.3MH [facility] MLLKYACVJR8229-50-64 10:00:000.8 XjmqrwznjSYQERIIQSL1039-51-46 10:00:0015.0 BkuzupslrCVLWBVDZGV0824-35-94 10:00:0060.9 SjcrvhtznREEBAJEMAA4920-24-84 10:00:002.5 YmytvpxosOSODVVRVIP0722-76-95 10:00:000.7 [facility] 2014-09-16 10:00:000.6M ZscionhcbBYMOSGQUTZ2140-84-22 10:00:00Normal (09/16/14 5:00 AM) AulekbziaQLITZFLXRQ0702-56-06 10:00:00Normal (09/16/14 5:00 AM) IknbogkyaJWRQRYFOWD6930-94-43 10:00:78815FQ LyawhunidBXMACGTNON6658-04-84 10:00:0013.9 AydpcpsnyKGRRSTQXOW2774-48-66 10:00:003.42 [facility] 2014-09-16 10:00:0032.9 PffbjlxorINCKPRCBNW0001-53-17 10:00:0011.1[facility] XJJULCDKVQ9180-31-25 10:00:00* Test Item Value Reference Range Interpretation Comments MCH (test code = MCH) 32.3 pg 27.0-31.0 HjrwquvphUIRLWXZFGI3840-63-21 10:00:0033.6M JzwunrlneLSFYZLVHRS2923-52-10 10:00:0096.2M OzuqyqdbvBMHNPHETFZ3615-92-98 10:00:0010.9 [facility] 2014-09-16 10:00:004.2MH [facility]CHE[facility] AZTLF9049-55-83 11:17:76348CF [facility] SHYZK8115-01-76 11:12:001.8 [facility] OPEDH4610-42-48 11:12:003.9 GfqnraaliSQEUMMHSIT9721-79-29 11:12:00* Test Item Value Reference Range Interpretation Comments PTT (test code = PTT) 31.6 s 22.9-35.8 UltgtykniMYWFYHEQMS1644-36-24 11:12:00* Test Item Value Reference Range Interpretation Comments PT (test code = PT) 14.2 s 12.0-14.7 HwfastkyqDCKCWIMHGN6359-79-19 11:12:001.09 [facility] ENZYMES 2014-09-14 04:03:32262QT [facility] DYEEF6071-70-78 04:03:001.9 [facility] XXMKU5328-77-74 04:03:42746JF [facility] AUFIB2158-34-96 04:03:003.0 [facility] TKFTJ2913-50-86 04:03:0043 FmextpypaUUKTHTZJKY3216-56-43 04:03:000.97 QczrmpcwzNXAIBMHQGB3003-71-86 04:03:00* Test Item Value Reference Range Interpretation Comments PT (test code = PT) 12.9 s 12.0-14.7 IiglhrrvrFIKXVYKGYL0642-53-25 04:03:00* Test Item Value Reference Range Interpretation Comments PTT (test code = PTT) 33.0 s 22.9-35.8 [facility] IRLYG9880-07-86 04:03:00Negative (09/13/14 11:03 PM)[facility] BOQDI9001-20-60 04:03:00Negative (09/13/14 11:03 PM)[facility] YITPL3792-84-58 04:03:00Negative *NA*(09/13/14 11:03 PM)[facility] KMLVJ9466-75-37 04:03:00Negative (09/13/14 11:03 PM)[facility] NHHQY1164-79-27 04:03:005.0 [facility] STOOL 2014-09-14 04:03:001.020MH [facility] ZPRSG8104-72-92 04:03:00Clear (09/13/14 11:03 PM) IrrjwrihgZNAMXROSCMEDG3864-10-48 13:31:464MH [facility] YPCVB4476-82-51 13:31:0014MH [facility] QEQPX9304-61-64 13:31:001.1MH [facility] TXTTH4272-35-38 13:31:003.0MH [facility] OSNEB8962-97-15 13:31:007.9MH [facility] VAVJA5897-91-01 13:31:0094MH [facility] PANEL 2013-12-16 13:31:00<0.1MH [facility] FEQVO7169-19-86 13:31:49205QG [facility] JVUCY9048-53-03 13:31:006.4MH [facility] KOTGS1435-72-25 13:31:003.4MH [facility] REQBV4466-60-07 13:31:000.8MH [facility] DVFFD2305-36-32 13:31:0011MH [facility] PSATK5042-75-18 13:31:58677VR [facility] PANEL 2013-12-16 13:31:15490VX [facility] RJWEG2600-71-05 13:31:04455XT [facility] THRBC6277-06-52 13:31:22967JS [facility] WPOLI1466-65-93 13:31:0093 [facility] CJRQO6584-55-82 13:31:005.9MH [facility] XMRPO0969-37-26 13:31:009.5MH [facility] GVZCD9180-96-92 13:31:0030 [facility]MATOLOGY 2013-12-16 13:31:001.4MH RyknakipqXSMYMKEPPG4118-58-51 13:31:002.1MH [facility] CVFLEFAJOH7336-20-21 13:31:000.3MH LehdxbgupOSADQLETTL9116-42-28 13:31:000.4MH EjikagejcQBEDVFZHHH8722-77-68 13:31:0033.9 JdjqaxjleBDUZBYPLNJ7763-89-81 13:31:008.6MH QsodqvnhqSKYNBTZMDL7333-67-92 13:31:006.6MH [facility] 2013-12-16 13:31:000.9MH IjeegnyufNZNWMUEEIL5148-01-86 13:31:0050.0 [facility] SDHKZPMUJI7629-20-90 13:31:0010.1M LplppzjugDTXRKTYCWG1765-93-73 13:31:0014.3MH NxameenjhKBXVXLSMTN1139-84-44 13:31:65120SF MyhfetknqFTHUVINFDB6850-94-74 13:31:0098.1M XgcsilyncECTRHNPJNB5700-43-84 13:31:00* Test Item Value Reference Range Interpretation Comments MCH (test code = MCH) 32.5 pg 27.0-31.0 CnizocltfWYFNQQAAJY0595-29-70 13:31:0033.1M GrnmtolybCPGKPGVHIJ9002-51-15 13:31:0033.6M ScgsvqwktMETYHUEYWM2738-53-43 13:31:0011.1M [facility] 2013-12-16 13:31:003.43 MfdjxsrouJNDOQXAXSM7223-54-83 13:31:004.2MH [facility] YDMXA5614-96-86 13:54:0094 [facility] EHSBR9660-54-27 13:54:000.2MH [facility] CAZGX3567-79-95 13:54:34514QB [facility] SYICD4187-99-90 13:54:006.7 [facility] UNLKY4517-38-90 13:54:0030 [facility] PANEL 2013-12-15 13:54:009.2MH [facility] TGXTO1672-80-43 13:54:003.7 [facility] BSWSP0096-80-14 13:54:03072WP [facility] RMVHO2154-99-68 13:54:06409TR [facility] JVBVS2505-08-03 13:54:34247ML [facility] XJJGY3462-99-29 13:54:005.2MH [facility] AGQHQ2171-81-90 13:54:0013MH [facility] PANEL 2013-12-15 13:54:0077 [facility] TOEWQ2343-61-43 13:54:34775AS [facility] WLEXN8021-57-82 13:54:000.8MH [facility] QTWAX6376-61-29 13:54:0016MH [facility] KICQL5802-07-43 13:54:0011.2MH [facility] HTVUU4753-91-88 13:54:001.2[facility] FSXIH3049-00-33 13:54:003.0 [facility] 2013-12-15 13:54:000.2M GhvwltkiwJNOVFOZFAD7688-76-88 13:54:000.3[facility] UZJKSQUQYT8597-40-00 13:54:001.8 WzygpxmgyWMZLDFBWXU7729-31-68 13:54:000.9 WniozzcvwAHZFWTZWQZ7828-89-47 13:54:000.9 NvkbdimrbGVJCCGIEYH4660-46-12 13:54:006.9 OxkdfyzuuUCOJSNFBQL9606-15-41 13:54:0056.8 [facility] 2013-12-15 13:54:008.3M ImtiiwxycVSFATBDMQU3831-40-33 13:54:0027.1[facility] OFZPKBNNVK9682-03-59 13:54:0011.7 ImivfkmmnRTRSAVVPLR1340-76-13 13:54:0035.0 HshgdcwtdSIQFOCYNYZ2224-46-47 13:54:20519NA VnpbpneoaYXSNLOXIVN5052-33-13 13:54:0013.9 CtbvyslaeLXQJQSOWTW1542-87-07 13:54:0033.3M [facility] 2013-12-15 13:54:0010.0 RrhhrofxpTDJXIRHEHM8924-01-97 13:54:00* Test Item Value Reference Range Interpretation Comments MCH (test code = MCH) 32.7 pg 27.0-31.0 PmphjfhauDMLUFXVSZY2529-95-03 13:54:0098.1M ZjdsbknkvLNOKIBJCBL2178-61-63 13:54:003.2M RsmrbxywjQMAJDGVJZE3382-32-95 13:54:003.56 [facility] 2013-12-14 10:17:0098.3M UcmoioazaLIYNCTIHHZ9469-58-51 10:17:00* Test Item Value Reference Range Interpretation Comments MCH (test code = MCH) 32.0 pg 27.0-31.0 QijdusrpaWVIPCQZCQG9898-94-56 10:17:003.70 QjxzhajqfFLXHSUUFZW0784-18-00 10:17:0036.4 MwxwpwuaqEWOASUHFFN0847-51-76 10:17:0011.9 [facility] 2013-12-14 10:17:005.0 CvqbiwyliOREQKSVAJD3492-96-39 10:17:0032.6[facility] QXUPXNAOVG6016-36-24 10:17:0014.1M PjdxkrymmSTPLBEWOGT2811-05-18 10:17:0010.5 GaixynooiMMJGIVOJMR6650-80-94 10:17:41284CI EjgnshniqZIUMOMZBPX1488-27-73 10:17:000.3M HcpdsmxsxIIXHYEOYJL0962-88-65 10:17:000.8 [facility] 2013-12-14 10:17:003.2M IeajcysvgYTUPRTKPBF0520-83-29 10:17:001.3[facility] WBTHBYFBEF9828-20-03 10:17:000.2M FtdnxgylqOVSLQXOBEK3414-76-01 10:17:00Normal (12/14/13 5:17 AM) ThzclmpqtFFHMOYCZNN7494-25-76 10:17:0025.5[facility] IQGBROVVQL1484-35-25 10:17:004.1M KmsfrokhlQWUPZRLITJ9937-21-63 10:17:006.5 GxpzrdjdiHOWKHNCOPE2974-43-57 10:17:0063.1M TxewlctviVORWIAUEGA9195-54-52 10:17:00Normal (12/14/13 5:17 AM) [facility] QNNST5667-08-73 10:18:41965DC [facility] SEIIU8239-73-34 10:18:000.2M [facility] RKRUB7616-93-16 10:18:62079MY [facility] COOXH7229-04-56 10:18:002.9 [facility] PANEL 2013-12-13 10:18:94935JW [facility] WEHBE6985-12-41 10:18:0011 [facility] MFXEI3399-24-13 10:18:000.7 [facility] JMNIM6809-42-64 10:18:0027 [facility] GAPFJ4944-52-31 10:18:008.2M [facility] NDTBY1706-64-87 10:18:005.2M [facility] INSHW1672-24-35 10:18:0065 [facility] PANEL 2013-12-13 10:18:32384QN [facility] OLYQY8841-02-82 10:18:004.6M [facility] THZQM2466-60-66 10:18:09461SV [facility] KKEIE7085-29-72 10:18:0082 [facility] ZPWFC3322-29-98 10:18:0016 [facility] GVTJI2016-76-83 10:18:0011.6M [facility] SSNPB7462-03-38 10:18:002.3M [facility] PANEL 2013-12-13 10:18:001.3M [facility]ANEMIA DIJZJ7978-26-49 10:10:0010.8 [facility] MQMOH8404-83-46 10:10:94599BG [facility] SGJSP8685-90-87 10:10:32498IH [facility] WITHT2574-66-40 10:10:83973AW [facility] TFVCE5820-07-41 10:10:16022LN [facility] TUUXY9783-53-76 10:10:0030[facility] GWERI1861-76-08 10:10:0025[facility] JTCEK2741-96-97 08:35:0031 JfnwsuhrxWPWGHEZEFW3953-79-35 08:35:000.95 [facility]MAT[facility]Y 2013-12-12 08:35:00* Test Item Value Reference Range Interpretation Comments PT (test code = PT) 12.6 s 12.0-14.7 [facility] WKDBC6887-63-72 22:30:00Negative (12/10/13 5:30 PM) [facility] HCQNO7047-55-07 22:30:00Trace *ABN*(12/10/13 5:30 PM) [facility] HFRJO7176-00-71 22:30:003 [facility] STOOL 2013-12-10 22:30:001.004 [facility] UWOSQ3524-80-01 22:30:00Clear (12/10/13 5:30 PM) [facility] LYGFN7567-27-00 22:30:007.0[facility] URINE AND GIZFR3518-46-13 22:30:00Negative *NA*(12/10/13 5:30 PM)[facility] URINE AND SEIMM3617-59-14 22:30:00Negative (12/10/13 5:30 PM) [facility] JDGLK0706-58-59 18:40:001.9MH TmoeclwkbFRGZLDUGIM8459-53-32 12:14:00<0.4MH [facility] QRAWH9133-10-26 05:40:001.008MH [facility] STOOL 2013-09-19 05:40:00Clear (09/19/13 12:40 AM)MH [facility] FTJVF2714-91-26 05:40:006MH [facility] DKWTO1859-78-43 05:40:00<1MH [facility] PBWWR2999-06-03 05:40:002MH [facility] AWJJN3014-26-03 05:40:00Small *ABN*(09/19/13 12:40 AM)MH [facility] ZHNFV6051-08-03 05:40:00Negative *NA*(09/19/13 12:40 AM)[facility] CMZLX5852-63-95 05:40:006.0MH [facility] HGRCI2253-45-90 05:40:00Small *ABN*(09/19/13 12:40 AM)[facility] ZLODZ5921-71-96 05:40:00Negative (09/19/13 12:40 AM) [facility] VVSAN0548-20-43 01:58:001.3MH [facility] ICLPD5501-50-55 01:58:003.1MH [facility] CYSOA4160-13-67 01:58:0017MH [facility] PANEL 2013-09-19 01:58:0012.5MH [facility] JJROF6529-22-22 01:58:45931BY [facility] ZLLQA8879-09-49 01:58:0012MH [facility] GYPXY7249-53-95 01:58:0090MH [facility] DXPSG0434-62-46 01:58:000.7MH [facility] NJCTU9417-92-81 01:58:000.5MH [facility] UHAAJ2407-15-26 01:58:12293JV [facility] PANEL 2013-09-19 01:58:66841ZV [facility] BHDFM4129-91-92 01:58:008.9MH [facility] HTYPG7875-70-34 01:58:0025MH [facility] RZZXP6531-51-26 01:58:004.0MH [facility] FOVXM0392-51-86 01:58:007.1MH [facility] IOXDG5782-78-47 01:58:31440TR [facility] NDVFD3841-58-68 01:58:003.5 [facility] PANEL 2013-09-19 01:58:96940YD [facility] OVMLA5005-92-71 01:58:23361QX [facility] TRSCB2149-56-78 01:58:001.9 QliodjmnwDOJOKJTWOJ3523-31-70 01:58:04706MI DrarihjmgTCHBWAGJQL2495-78-06 01:58:0033.9 NengeyufrVIBNLBXMKP4797-15-87 01:58:00* Test Item Value Reference Range Interpretation Comments MCH (test code = MCH) 31.9 pg 27.0-31.0 XxyvzjpgbSRYTIXBPNI1115-68-34 01:58:009.0 NoyoiozeoNHUNKEXKCT3744-84-31 01:58:0013.7 GbvncimwuEEOWJQMQLS8228-89-90 01:58:0035.9 [facility] 2013-09-19 01:58:0012.2M GsyvccvsfULKGWDBBNQ9456-84-08 01:58:003.81[facility] BHMXMRZBEH3715-37-45 01:58:0094.2M KssvgitnvLJYADOXJGK0127-90-51 01:58:005.8 SwcmvonifSXKSBJFDNF4238-87-11 01:58:000.3MH IubdgtynjJOVNSSYKGS7401-72-66 01:58:007.2M SbbquyugcGIRHAVGCVX0598-12-23 01:58:003.4 [facility] 2013-09-19 01:58:0030.1M KsjzzzsnqTSXMMXVTFF9220-55-33 01:58:0058.4[facility] YFGGFYIXLG7425-03-25 01:58:000.4 FxovrbmafMWUGTAGGQN2273-87-41 01:58:001.7 EyfydoqagJRRKXYURVK9154-21-44 01:58:000.0 IhudjtubfNLWTRNLKUJ6812-49-33 01:58:000.2M LxnyeyjxlUEGYKIYXJL2072-45-04 01:58:004.0 [facility] PANEL 2013-09-13 03:45:55276BE [facility] VNUGX2107-30-95 03:45:0012.9MH [facility] EPTAK5107-26-17 03:45:0027MH [facility] AWOFS7565-69-31 03:45:008.6MH [facility] JVHYW0065-93-87 03:45:000.7MH [facility] XMZEO0301-64-57 03:45:60793UM [facility] UAPUR5325-05-07 03:45:009MH [facility]CHE[facility] PANEL 2013-09-13 03:45:003.9MH [facility] UQHQU3243-89-63 03:45:26845QR [facility] ZQUVO7343-16-87 03:45:47542VL FhcdwlqirRHXYGJRZCDIM8061-24-38 03:45:003.6MH SoutheastANEMIA THHRN8444-84-25 02:45:0041MH [facility]IA VPUDC9227-04-80 02:45:31751JE [facility]EMIA MRUYX7121-50-37 02:45:0010MH [facility]ANEMIA STUDY 2013-09-13 02:45:84015NE [facility] NVJBQ3287-11-39 02:45:87159AC [facility] BLOOD BANK INOJAQL1722-24-78 02:45:00Negative (09/12/13 9:45 PM) [facility] POZSB1663-96-94 02:45:00<0.1MH [facility] KTJXR5387-65-65 02:45:001.9MH [facility] NIYUG5570-54-55 02:45:005.3MH [facility] CTSHR4915-93-80 02:45:0092MH [facility] TPTUJ4930-76-15 02:45:0029MH [facility]CHE[facility] PANEL 2013-09-13 02:45:0011MH [facility] HBASK2171-80-99 02:45:0063MH [facility] MRMDN2204-92-94 02:45:0082MH [facility] YRAKR5748-42-61 02:45:06728LQ [facility] QVCBD1560-55-73 02:45:001.0MH [facility] VAXEH8708-25-79 02:45:25901FM [facility] LRDYO8858-34-51 02:45:004.0MH [facility]CHE[facility] PANEL 2013-09-13 02:45:003.9MH [facility] DJXCP8004-79-08 02:45:008.6MH [facility] WHHUR0353-97-29 02:45:007.9MH [facility] OGQUE5275-71-93 02:45:0013.6[facility] NPVOO5739-11-14 02:45:0030[facility] KTURA7651-77-51 02:45:49367RTRobert [facility] XTPZQ2350-24-52 02:45:00See Note 1, 2(09/12/13 9:45 PM)[facility] EHOZV2556-58-21 02:45:13461FB[facility]2014-05-02 02:45:00See Note 5(09/12/13 9:45 PM)[facility] IXRPD6608-87-74 02:45:00See Note 4(09/12/13 9:45 PM)[facility]CkkucuxnbPNGNYAWDIH4806-34-18 02:45:001.1[facility]2014-[facility]-02 02:45:001.7[facility] CenterKozczxadkCTLEINGIKB8238-93-73 02:45:000.0[facility] CenterKuyagapycJJWRRBGNUC8388-60-82 02:45:000.3M DvmhzxiwmOBCKJNVXDN1854-64-37 02:45:000.3MLeonard Morse HospitalQdiiyrjbeWMOTDSZTMV8308-70-62 02:45:0037.3MLeon[facility] HospitalHEMATOLOGY 2013-09-13 02:45:0048.8[facility] HospitalVelirnmnwICLCUVPPNU9613-72-10 02:45:00Normal (09/12/13 9:45 PM) TrftfpeukJUMIEKQPOH4517-13-12 02:45:00Normal (09/12/13 9:45 PM)[facility] CenterEgjfgqhwbYCUGZBUSYD0195-85-81 02:45:002.3M MplpvpgtwNEMVKIJKXJ9979-92-11 02:45:000.8[facility] HospitalEsnjfqxndVJIJVQGYOL8909-07-70 02:45:007.1M [facility]MATOLOGY 2013-09-13 02:45:006.0 WlwwxfcelKBYMLEIZXW9621-14-11 02:45:00* Test Item Value Reference Range Interpretation Comments PTT (test code = PTT) 30.3 s 22.9-35.8 [facility] HospitalPsonmdjlzNNYBHWBNJN6547-86-33 02:45:000.96 ExaruyupbQFDVVABDUT4376-44-54 02:45:00* Test Item Value Reference Range Interpretation Comments PT (test code = PT) 12.7 s 12.0-14.7 StrefchhrCBJRYGHDXZ7006-56-18 02:45:0010.5[facility] HospitalKyrmdknmbPLYXYGQAEN7521-68-33 02:45:48207LUPondville State HospitalUsvxtqmdyGJLOTJJIDX1243-38-56 02:45:0014.4[facility] 2013-09-13 02:45:00* Test Item Value Reference Range Interpretation Comments MCH (test code = MCH) 31.8 pg 27.0-31.0 FjxiesszwEVEZSFXWTP2559-72-38 02:45:0096.0[facility] HospitalZosdkjmzeHXKSWIQPBE7127-75-39 02:45:0035.2MLeon[facility] HospitalYpmqiusvnPZMONZQCEP3304-45-13 02:45:004.7[facility] 2013-09-13 02:45:0033.1MLeonard Morse HospitalPinfqgfzuOIXSSUQRBW5477-25-80 02:45:003.66[facility] HSTLPMFPVR3622-02-34 02:45:0011.6MH [facility] NPHTD0623-93-78 22:35:00 Clear (09/12/13 5:35 PM) [facility] UPNWY9570-79-02 22:35:001.006 [facility] SWUSY2397-22-40 22:35:00Negative *NA*(09/12/13 5:35 PM) [facility] HQIAA7144-08-24 22:35:00Large *ABN*(09/12/13 5:35 PM) [facility] VQNPO5133-85-79 22:35:00<1MH [facility] STOOL 2013-09-12 22:35:007.0 [facility] DCHBK7669-97-08 22:35:00Negative (09/12/13 5:35 PM) [facility] MKWBJ1129-19-47 22:35:00Negative (09/12/13 5:35 PM) [facility] QXYEH0395-05-67 22:35:0029 [facility]URINE CHEM 2013-09-12 22:35:00Negative (09/12/13 5:35 PM) [facility] NIPUH7642-04-12 11:58:008 [facility] QYLLK5095-74-86 11:58:002.4 SoutheastCHEM PANEL 2013-09-10 11:58:001.2MH [facility]CHE[facility] DAQNV6844-11-03 11:58:16011PX [facility] TTUSP1982-40-43 11:58:003.7MH [facility] AODPR4797-17-05 11:58:35728AQ [facility] WCJRE0122-80-34 11:58:0020MH [facility]CHEM NJGEY0750-57-36 11:58:0010.7MH [facility] RHSLZ5408-52-08 11:58:53642VK [facility]CHEM PANEL 2013-09-10 11:58:000.2MH [facility] NGMVU6224-40-43 11:58:0029MH [facility] UQBLX0617-11-33 11:58:008.6MH [facility] XHXXN9289-30-83 11:58:005.4MH [facility] GRUGV4017-71-71 11:58:003.0MH [facility] PMYIR6761-64-25 11:58:0095MH [facility]CHE[facility] SVWIV3009-62-79 11:58:000.6MH [facility]CHEM PANEL 2013-09-10 11:58:96401FP [facility] KLQHD7039-65-74 11:58:0081MH [facility] HIZPP6602-87-41 11:58:005MH [facility] EZIKE0748-93-24 11:58:00<0.1MH [facility] VGJVX2995-50-34 09:28:07564JI [facility] NWKDV9565-97-05 09:28:0042MH [facility] DZWAB3399-16-87 09:28:55688FF [facility]CHEM PANEL 2013-09-08 09:28:00<0.1MH [facility] HIVBB0722-94-31 09:28:000.1MH [facility] RQCWS2563-97-10 09:28:00>0.0MH [facility] YJUOI1903-19-47 09:28:001.2MH [facility] HKMXH0674-03-33 09:28:002.6MH [facility] ISNIV7754-14-75 09:28:003.0MH [facility] DFJFD3895-76-21 09:28:005.6MH [facility]CHE[facility] PANEL 2013-09-07 09:15:71024MD [facility]CHEM DAYKJ0163-15-20 09:15:0031MH [facility] QMNBY3796-32-85 09:15:87166OX [facility] QLVKI0654-70-22 09:15:002.9MH [facility] SCDXR2935-01-34 09:15:001.2MH [facility] OTCMH5194-00-44 09:15:00>0.1MH [facility] CYGMO6728-08-90 09:15:000.2MH [facility]CHE[facility] PANEL 2013-09-07 09:15:00<0.1MH [facility] UCHQE9879-20-35 09:15:006.4MH [facility] JAZTM7802-32-12 09:15:003.5MH [facility] QRXFE3979-72-95 10:26:00>0.2MH [facility] DLMWK2499-04-82 13:25:78110NV [facility] TWSWO9835-96-62 13:25:83762MV [facility] TVHVH9359-31-30 13:25:0073 [facility]CHEM PANEL 2013-09-04 13:25:003MH [facility] RVLDO2607-74-53 13:25:000.6MH [facility] NJRVW1583-61-33 13:25:0011.1MH [facility] KASMP2321-35-42 13:25:005MH [facility] PFXDP9627-50-65 13:25:008.1MH [facility] SLHGF4799-98-01 13:25:004.1MH [facility] QOSNV7660-11-06 13:25:0025 [facility]CHEM PANEL 2013-09-04 13:25:90543PJ ZejijopziFVFGTZHRMA3831-89-37 10:28:000.1MH [facility] DXACCJVLCF8715-48-25 10:28:94755TL AiiqowlriFDRESASOUI8141-97-07 10:28:00 Negative (09/04/13 5:28 AM) VorfyidmdDQZTBOVMRF6032-18-93 10:28:00Negative (09/04/13 5:28 AM) XzcelxhqiGDOQAVWXJO3559-66-67 10:28:00<20.0MH [facility] WHIUXGDVXT1257-08-00 10:28:0022 [facility] CSJJW6276-33-56 11:34:55975MF [facility] DHQOY3122-30-35 11:34:05943OL [facility] CVZHY7830-06-65 11:34:0027 [facility] RHCWN7330-61-84 11:34:008.1MH [facility]CHE[facility] PANEL 2013-09-03 11:34:006[facility] ALHED6351-86-00 11:34:12209MLP[facility]ville [facility] HospitalCHEM WROEU6372-86-98 11:34:000.6MH [facility] YOETN1262-26-53 11:34:004.0[facility] YWBTK5109-47-77 11:34:0061[facility] SFBOM8534-64-52 11:34:006.0[facility] DACJY5632-55-50 11:34:0010 [facility] 2013-09-03 11:34:001+ *ABN*(09/03/13 6:34 AM)[facility] HospitalObnvblmtwHSTHBDHLXV5260-54-24 11:34:00Slight *ABN*(09/03/13 6:34 AM)[facility] HospitalYaeqfnrvmHPZRQIHPUN5508-21-93 11:34:00 0.0[facility] HospitalBwaeyoznjLISBTXBRGE6295-68-48 11:34:000.2M SquxtlydpQQJGFFNMDB7314-29-67 11:34:000.2M StvwbzqqjXUXPDOJMXJ6168-98-82 11:34:006.3M [facility] 2013-09-03 11:34:001.0[facility] HospitalUskjhkjmrXWCLIFQPXB4924-55-15 11:34:002.2[facility] XHVFKJEYLY3687-83-81 11:34:000.7[facility] HospitalDffcqxcsqRPCIHKACOD7462-45-67 11:34:0064.7[facility] HospitalGswvdjwryFPGGYJUSXB1717-30-06 11:34:005.8[facility] HospitalVydgorezkVBAAEHDQYR9466-40-61 11:34:00Normal (09/03/13 6:34 AM) McpprtmceNYOGABNCGM3103-37-85 11:34:0022.2M YrxbhlpkbVQOUENHVXR6513-30-31 11:34:0010.2M OawxlcyocBQDYZLVBIW5712-90-88 11:34:002.94 VlgnwnseyXWIYLYVFOR9943-98-63 11:34:009.6M [facility] 2013-09-03 11:34:0028.0 NpzzkxpxzKHNLYUNKKJ7953-67-02 11:34:0095.2[facility] RJEPWOJDDH1911-01-41 11:34:00* Test Item Value Reference Range Interpretation Comments MCH (test code = MCH) 32.5 pg 27.0-31.0 YlqcccuyzQHYLOKICCO7577-53-89 11:34:0034.2M FcfgymzkhCRRDLGHUKR2301-59-86 11:34:70596JH OllumrtwdNSSNMLNPQP0539-68-96 11:34:0014.2M [facility] 2013-09-03 11:34:003.4 BqdxjjtfoPUYWPFMNTP9844-32-12 11:34:00Negative *NA*(09/03/13 6:34 AM) KtdeylvgkTYDBJBSRKX1851-66-50 11:34:00Negative *NA*(09/03/13 6:34 AM) PtladxcbqZYBUOKIUIJ8061-17-91 11:34:00Negative *NA*(09/03/13 6:34 AM) TitwwbztmZZDVIEANZD8114-10-57 11:34:00Negative *NA*(09/03/13 6:34 AM)[facility] HospitalOqwqoyabqYRVVMAHXGY1019-57-02 11:34:00Negative (09/03/13 6:34 AM) [facility] WMCIG6478-69-40 05:53:34293FX SoutheastCHEM PANEL 2013-09-02 05:53:0054 UnrrphflrQZFHOFNHUA4916-56-22 05:53:0033.4[facility] QSBNBPHFHE6114-31-00 05:53:008.5 BtkthrvgpKTBYQNWZRZ0683-26-48 05:53:0054.8 PjdwfecdoXKYJYXJFPF5559-93-72 05:53:000.[facility] HuegburniUBHEEKPZLR8708-14-07 05:53:000.0 AwjhfpzruAFSMIXLCBA6260-48-73 05:53:001.7 [facility] 2013-09-02 05:53:000.4 EribjloidPVIAHCXFVD8003-24-42 05:53:000.5[facility] DUJXISBDOJ1452-23-75 05:53:002.8 UnzpsgclhCMKJVBGEZS7011-06-00 05:53:002.8 YuogntjnvXXDSKNREXH9482-60-93 05:53:0010.2M ViqohetnfLAONBNPTJW6039-21-04 05:53:39142PQ EvsniyfpiNCSFNTGGGO0805-26-68 05:53:003.93 [facility] 2013-09-02 05:53:0012.5 YbooxsrltKTSAHJDCOW7221-27-70 05:53:005.0[facility] BJBXDPHANG2554-07-76 05:53:0033.7 DnerzyagnFCSQJFEYBE0906-30-40 05:53:00* Test Item Value Reference Range Interpretation Comments MCH (test code = MCH) 31.9 pg 27.0-31.0 LaugyeageJXGVMIXPHU4251-67-27 05:53:0014.0 NfhqxokalMAYDXADCFW5234-09-12 05:53:0094.6MH AczehhngsMYMROYSJQU9059-21-20 05:53:0037.2MH [facility] SWESI2053-61-60 04:24:00Small *ABN*(09/01/13 11:24 PM) [facility] STOOL 2013-09-02 04:24:00Negative (09/01/13 11:24 PM) [facility] STOOL 2013-09-02 04:24:00Negative *NA*(09/01/13 11:24 PM) [facility] STOOL 2013-09-02 04:24:005.0 [facility] VKMOW7550-87-83 04:24:00Negative (09/01/13 11:24 PM) [facility] YAZJD5440-49-78 04:24:008MH [facility] URINE AND AJNEU5683-91-94 04:24:00<1MH [facility] MCAQA1075-71-66 04:24:001.020 [facility] NXRFB9657-41-90 04:24:00Clear (09/01/13 11:24 PM) [facility] KICB4303-40-55 04:24:00Negative (09/01/13 11:24 PM) [facility] MMTJW7083-81-86 07:00:008.9 [facility] UFOGJ7578-87-48 07:00:000.1MH [facility] BGSFO3086-13-62 07:00:99115GN [facility]CHE[facility] PANEL 2013-09-01 07:00:12116GL [facility]CHEM LAKPA9779-17-34 07:00:006.9[facility] CHEM BNURI6243-29-12 07:00:0025 [facility] NDMXQ8059-26-11 07:00:37262PS [facility] EARMP5412-31-46 07:00:000.7 [facility] JPTGR6671-57-68 07:00:96469CI [facility] TVYIQ2891-75-41 07:00:003.4 [facility] PANEL 2013-09-01 07:00:0012MH [facility]CHE[facility] GEHQH3465-65-88 07:00:24517DY [facility] CHE[facility] CCEKC2343-32-30 07:00:0095 [facility] NIOAP3546-93-77 07:00:003.8 [facility] IHPLF8840-17-86 07:00:89280OA [facility] IHNKV6410-34-98 07:00:0017MH [facility] ANKIX3413-95-45 07:00:001.2MH [facility] PANEL 2013-09-01 07:00:003.1MH [facility] KADVU1968-80-04 07:00:0012.4 [facility] XPWJWOLEYD2241-62-38 07:00:000.2M OakdwaurgSWSYHRJDYI0536-90-68 07:00:000.0 AbmgpqyltIAUKUSITQM5284-76-59 07:00:000.7 FerdkinacDREZBLBWRG2966-93-85 07:00:002.1M AuqxkmoytMJDRPKQOWB2435-69-36 07:00:000.5 [facility] 2013-09-01 07:00:000.2M KyzsknreoHJYREFOCVA0919-31-53 07:00:0066.6M [facility] PXFUPDIWEG4885-10-26 07:00:0016.9 QyoswynwiBGMXQZYZUD1685-83-74 07:00:008.1M XftktirphAXSKJQGMGI5905-16-04 07:00:007.7 SzbjqhpflTECJIXSAXX9765-90-63 07:00:0033.6M DpsnmmgdtCTISKBBPUK9450-75-48 07:00:00* Test Item Value Reference Range Interpretation Comments MCH (test code = MCH) 31.7 pg 27.0-31.0 FezgaqgehHCKYXGCEYF1682-46-79 07:00:24574LS ZutpwhktrIQULGKSSOB8453-84-65 07:00:0013.7 YwnrrelceTSCSIBWYQN3823-26-92 07:00:0011.4 [facility] 2013-09-01 07:00:003.58 HgalzjcmdLMOGNMNEPV9152-80-84 07:00:0033.8 [facility] NPIOINXALP7111-28-26 07:00:0094.3MH VblnbhxsdCXKZDIVALT8056-36-64 07:00:0010.1M LszoblzdgENKJGESKDB5647-42-39 07:00:003.1M[facility] HospitalFrgjuparnZAFIEQZUDZ5937-75-93 05:53:00Negative (09/01/13 12:53 AM) [facility] ZJEEC2487-64-37 04:50:001 [facility] SCNHL5510-05-65 04:50:001 [facility] FZZRP4223-35-68 04:50:005.0 [facility] VUATQ0986-27-85 04:50:00 Negative *NA*(08/31/13 11:50 PM) [facility] FIQDZ2623-05-44 04:50:00 Negative (08/31/13 11:50 PM) [facility] ODLMY8115-46-87 04:50:00Trace *ABN*(08/31/13 11:50 PM) [facility] SYWHL5009-75-82 04:50:00Negative (08/31/13 11:50 PM) [facility] ECRRG7862-59-73 04:50:00Clear (08/31/13 11:50 PM) [facility] DQTAT3219-24-24 04:50:001.014 [facility] AQAU9261-43-10 04:50:00Negative (08/31/13 11:50 PM) [facility]URINALYSIS 2013-06-06 02:57:001 UdkdiqzpeZMHNIIAWJQ8024-99-92 02:57:00Clear (06/05/2013 20:57:00) [facility]HfcoarvyvZRYQWJMWUQ6007-22-83 02:57:001.005[facility] 2013-06-06 02:57:007.0[facility]OhrdmjwmsZIDNPJCTEZ9240-17-91 02:57:00Negative *NA*(06/05/2013 20:57:00) HakqqscfgVIGLCQQBZG4243-90-02 02:57:00Negative (06/05/2013 20:57:00) ZgvjfgzsgPXWVPPVNWU0619-79-46 02:57:00Negative (06/05/2013 20:57:00) VxawxnuueDSKVBRWHFV0076-08-68 02:57:003[facility] SXRVJXAXVS6034-90-42 02:57:00Moderate *ABN*(06/05/2013 20:57:00) [facility] VIRAL - IMINHYLK2607-74-86 02:41:00Negative (06/05/2013 20:41:00) [facility] VIRAL - ZZHGTIHK0989-34-62 02:41:00Negative 1(06/05/2013 20:41:00) [facility] XFREDYRPC9137-71-60 02:30:002.0 JsgbhbtynHZENNNTSH1329-27-45 02:30:0094 OxflveerkDTRYOXUMH4843-75-60 02:30:0018 CjcypahyuASICLULYO2859-53-31 02:30:00 3.6MH GeazlqzrsOEKBHZBDT5437-70-08 02:30:0030 HufahjjwnUDYWGYVZH4016-29-86 02:30:88923VO SmrmwhfraQZGKXJZVD2374-42-10 02:30:0052 [facility] 2013-06-06 02:30:003.9 AltgtxhhoVDTUWTNEI0725-00-94 02:30:008.7[facility] NDEGXIFAK1914-22-86 02:30:99072HP XxvpeiofuPBPBRBEFS0977-91-33 02:30:000.8 GkgxxijoaUEVQHTHTG5785-48-21 02:30:47477XX BrispfmbkWRNAIXCEY2143-67-35 02:30:00 15 ZajpuclncVHOPBRKVY0453-31-02 02:30:84895YQ DcbwflyubCJYAWWOSJ9063-54-24 02:30:000.2M GfyutiiooGTBDLVWQG7825-65-78 02:30:007.3MH [facility] 2013-06-06 02:30:0019 BrtqzujosASDTXPSPH8675-15-86 02:30:009.6M [facility] NCMDHVRCT2993-67-90 02:30:003.4 PycwbuqjmBHOWGZQAU6758-88-37 02:30:001.1M DqppkzmukIDLUWKMUWD4904-54-30 02:30:0025 FdggaqaqzAIGQKMLYGY9889-30-75 02:30:0094.2M IvlnjmhxqIPPVQNBXOQ8919-55-16 02:30:0032.7 [facility] 2013-06-06 02:30:00* Test Item Value Reference Range Interpretation Comments MCH (test code = MCH) 30.8 pg 27.0-31.0 N ZqmhntstfTMCIXBHGVA4976-64-66 02:30:0014.2M CoamtluisIIZLFRYHUL0319-04-47 02:30:009.0 KeqewanwzOGXTQHDXIT2345-92-28 02:30:12851SW [facility] 2013-06-06 02:30:0012.0 KohauxhgkOIXQXETTGX6987-27-40 02:30:0036.7 [facility] TIVEROCFMJ1272-59-33 02:30:003.89 CmiasuniuWFEOAEERJQ4314-77-66 02:30:004.2M HihltuhttOTUIASMSZH2723-90-04 02:30:001.9 WxbvajufhTLXQLELYAA7113-03-31 02:30:000.0 NajyoawblWIZNLDCBAP0238-70-20 02:30:000.3M [facility] 2013-06-06 02:30:0043.2M DfgqdogpsCCEXMSEFGF6794-94-11 02:30:002.4 [facility] WTFMFGIYLP9851-52-10 02:30:000.1MH CxuaciyksWOGCMJCMCH0267-71-45 02:30:001.8 QyrbcahveDBEWEHIAAK4197-37-09 02:30:000.7 EkwqhhrrxMLZXKZRAMB9447-26-21 02:30:006.8 EyqjbbqsgEYXXMTFYQY3998-40-90 02:30:0046.9 [facility] 2013-02-12 07:36:00<0.6MH TbbddllvjMCCOPSTQN2459-53-09 07:36:00<0.02 [facility] KMMZSMYPO4373-43-94 07:36:00<0.5 WoajqccdsEWPTQQLQK9759-22-07 07:36:0088 IyqrobnmtDJXSLVAUU8736-07-23 04:40:00<0.6MH GqyqqxmiuZRDBVMBHS9202-59-03 04:40:00<0.02 VctubrrltGPDQXYWMM6326-82-64 04:40:0086 [facility] 2013-02-12 04:40:00<0.5 SllvhsdogALIYRXEKP6916-52-29 04:40:0094 [facility] WZPODCJST6821-75-83 04:40:003.3M GutjjufxfQKTSSLUOS2338-22-15 04:40:001.3M CbsyyixgtKVEFWWDIP3022-03-90 04:40:0015MH VkojiltfvRIQDGZFUH9644-16-12 04:40:00 12.8MH YkvmmgcacIXDQDYGGB3375-20-87 04:40:33228UV JiyqhcunpLREPICGJZ2151-38-66 04:40:000.3MH UwlkazctiCDWBXLZKT9430-97-31 04:40:0014MH [facility] 2013-02-12 04:40:000.8MH WrwvqszauYCOBZFGTV3047-18-01 04:40:0081MH [facility] QDZKBTCJD4816-68-68 04:40:0012MH FluuqfzzoJLKPHHZDE5700-71-35 04:40:007.6MH RrstkouaoWHCSLRFFC4288-31-22 04:40:004.3MH ZxszwangwJZJIWXUIR0595-82-43 04:40:00 28MH OskvbuidyTDVIEEFRP5266-60-04 04:40:009.8MH CggrttqdvVLWWECXJK3879-13-62 04:40:0050 UfrqmpldeQXWYLJYTK2577-35-93 04:40:38910AL [facility] 2013-02-12 04:40:02679SV QotbovmlsOLDWAQRHI9199-81-83 04:40:003.8MH [facility] SJXPWLBGZH0990-61-06 04:40:000.0MH KeoqesfijYFRALJYCFT3187-97-86 04:40:000.1MH IhkvvjqfqPMPXMWHTTJ9104-22-10 04:40:002.2MH JeetgnkeiWVBPIUUHCC1163-40-89 04:40:001.9 KwvxkewcjQLOQSFHPWC2692-44-26 04:40:000.3MH [facility] 2013-02-12 04:40:007.1MH HndgxgqocQTIQKVFYJL4598-16-23 04:40:000.6MH [facility] JLLLZKASPW1876-16-03 04:40:001.9 ElbptgpaaTMAFHMKMDE3082-75-98 04:40:0044.8 NpgooomiuBLDHXYQBTT8614-87-27 04:40:0045.3MH WoeiwfhyqTDJYFCWXJI3111-07-18 04:40:0032.6MH KvpwpyjweEOVKDBEQJD5740-74-56 04:40:00* Test Item Value Reference Range Interpretation Comments MCH (test code = MCH) 31.0 pg 27.0-31.0 N GvtycjejkJFKMZFLTUK2398-50-14 04:40:0014.3MH RhzeucearKTEZENDHSW8211-51-40 04:40:69935EHP[facility] HospitalHwxpjdnddPDDFWQTJHR7023-30-77 04:40:0010.0[facility] 2013-02-12 04:40:004.3M[facility] HospitalMrdscuktiDMHGTUVGLO9512-81-59 04:40:0012.5[facility] XXVSCJFTKE5848-98-60 04:40:0038.2MLeon[facility] HospitalXlpluohmeTDMYIMQABQ5419-44-15 04:40:0095.1MLeon[facility] HospitalPwwngskvoYUBNSUAMVT7868-38-68 04:40:004.02[facility] HospitalQotzqklbePIXXCLBAZY0280-97-76 01:54:00Occasional /LPF *NA*(02/11/2013 20:54:00) [facility] 01:54:00Few /HPF *NA*(02/11/2013 20:54:00) [facility] 01:54:007[facility] HospitalSozgaakqsFIIOHUOLRH2332-85-36 01:54:001[facility] QUDLMGNTTQ6649-04-48 01:54:00Negative mg/dL *NA*(02/11/2013 20:54:00) [facility] HospitalRuyacprrzHIHPTGULJZ6226-25-54 01:54:001.010[facility] HospitalPlsxhhpfoHCIOLJPIOD7257-25-18 01:54:00Trace mg/dL *ABN*(02/11/2013 20:54:00) [facility]AkzxrocvqIUFQOCDSMP7051-31-34 01:54:00Negative *NA*(02/11/2013 20:54:00) [facility] HospitalSuaxtgmjtEJFISONBOI3849-96-60 01:54:00Negative (02/11/2013 20:54:00) [facility] HospitalQesdwhucrMYPILDVUNH6353-39-92 01:54:00Large *ABN*(02/11/2013 20:54:00) [facility] HospitalSmhikiyiuLWSYBIKVTR7570-04-64 01:54:00Negative (02/11/2013 20:54:00) [facility] HospitalUkjubfxrhJEKKXRKNQL3774-44-28 01:54:00Negative mg/dL (02/11/2013 20:54:00) [facility] HospitalUrvqtonkcURMGGUCYLU5712-80-07 01:54:00Clear (02/11/2013 20:54:00) [facility]LxlhntcaoVYQHNNHEGT3926-65-89 01:54:00 5.0[place] [address]NinnojainGKALDKSPLE0429-26-09 05:45:000-2 /HPF (09/28/2012 00:45:00) [place] 017203-05-17 05:45:00Performed (09/28/2012 00:45:00) [place] 017203-05-17 05:45:00Small *ABN*(09/28/2012 00:45:00) [place] 017203-05-17 05:45:00Few /HPF (09/28/2012 00:45:00) [place] 017203-05-17 05:45:006-10 /HPF *ABN*(09/28/2012 00:45:00) [place] 017203-05-17 05:45:00Few /LPF (09/28/2012 00:45:00) [facility] 2012-09-28 05:45:00Negative (09/28/2012 00:45:00) [facility] XZBSVBVTBF3253-57-78 05:45[facility] 05:45:00Negative (09/28/2012 00:45:00) [facility] 2012-09-28 05:45:00Negative (09/28/2012 00:45:00) [facility] HWFMXIJHGE8648-32-38 05:45:00Negative *NA*(09/28/2012 00:45:00) [place] 017203-05-17 05:45:00* Test Item Value Reference Range Interpretation Comments UA pH (test code = UA pH) 6.0 1 5.0-8.[address] [facility]2013-05-17 05:45:00Negative *NA*(09/28/2012 00:45:00) [place] 017203-05-17 05:45:00Moderate /LPF *ABN*(09/28/2012 00:45:00) [place] [address]-05-17 05:45:00 Negative (09/28/2012 00:45:00) [facility] HospitalBwqnwkRZHIQVNRUR4082-86-49 05:45:00* Test Item Value Reference Range Interpretation Comments UA Spec Grav (test code = UA Spec Grav) 1.020 1 N [facility] HospitalZfqevmSMBQICLVQY4201-11-62 05:45:00Slight Cloudy (09/28/2012 00:45:00) [facility] HospitalYfwtmvRJAUKPHWKY4679-79-16 05:45:00Yellow *NA*(09/28/2012 00:45:00) [facility] HospitalUyznfvPVXCGKOQD2582-85-38 01:58:29 4.3[facility] CampusTfkmxlWOAORRZZD9661-78-61 01:58:291.7[facility] BHVXQQDDB2011-45-56 01:58:2995[facility] HospitalTjejmxFYXDMHHDB7802-37-69 01:58:2912[facility] HospitalNdteqsCTEUPRLGO9698-01-56 01:58:2994[facility] HospitalLrcxyfHSBLEUZGH7215-74-04 01:58:2931[facility] HospitalSuicfyFQGYJCFLN6674-08-97 01:58:13699TCMethodist [facility] and Transplant HospitalWqdnjqGOEZNNOAG4202-05-91 01:58:290.8[facility] HospitalFahcoqNSTMKDQBQ9922-33-95 01:58:84505NCMethodist Specialty and Transplant HospitalCHEMISTRY 2012-09-28 01:58:294.[address] [place], [place] [address]PxkzsdJONPFRIZQ2384-65-41 01:58:299.7[facility] HospitalVvwlxtBFLJLLYJW7078-34-19 01:58:[address] [place] [address] CZWMCMTXTZ3137-32-38 01:58:[address] [place], [place] [address]XaqsbkCJYZTOTWXW1174-66-69 01:58:290.[address] [place], [place] [address]NweoqaOGSDIDDQMK5186-89-50 01:58:[address] [place], [place] [address]IfjnbbYKGTGCMOCE6624-31-42 01:58:[address] [place], [place] [address]HEMATOLOGY 2012-09-28 01:58:2944.0[facility] HospitalOdrdvrSJWOMICJCO9646-80-07 01:58:2946.4 [facility] HospitalPyrarpXVOUSZZUKJ0359-84-80 01:58:292.[address] [place] [address] HDDNYIDDPL9987-41-38 01:58:291.3MW[facility] CampusAhlfcqPNEZLSPHYB3030-57-41 01:58:291.7[facility] HospitalMkreyfYSPEJEDFQU7025-65-86 01:58:292.1MW[facility] CampusKktqtzTFZIQQSQJN6819-42-53 01:58:2995.6MW[facility] CampusHEMATOLOGY 2012-09-28 01:58:293.79[facility] HospitalZyngnsIOTJGGLLLN4596-38-77 01:58:2912.2 [facility] HospitalIubvgmTOVOIUZGIJ4448-98-47 01:58:2936.2[facility] SJIJLSRVTD9738-33-10 01:58:294.7[facility] HospitalIcyhrwKZHIAOIXJO8080-11-69 01:58:299.5[facility] HospitalQqjhbcPGVAKUPAJT2354-80-43 01:58:2913.1MW[facility] CampusHanumaTUUHUAUCDA4203-91-33 01:58:69633CNMethod[facility] HospitalHEMATOLOGY 2012-09-28 01:58:29* Test Item Value Reference Range Interpretation Comments MCH (test code = MCH) 32.1 pg 27.0-31.0 H [facility] HospitalKgbemcKPTXMCPAHF8599-89-21 01:58:2933.6[facility] EYWQFCIVH9004-88-54 11:04:003.7 JwjjiriljUPIROHIJS4511-58-54 11:04:006.3M HdewlsbkgFEIRZEPSY3295-78-98 11:04:0035 QtbrmoksdUEWZZNVDE9089-95-32 11:04:00 0.3M PgjvqqkkwPLNBXUJZA0513-59-65 11:04:0015 NvlredatkBURKCMOSM8593-52-35 11:04:0081 CpcytuvejCQZXOSCSA2458-67-46 11:04:00<0.1M [facility] 2012-08-10 11:04:002.6M XdkwvwgonLVOHGCANF5362-88-78 11:04:001.4 [facility] AYZYYUEKR5075-87-22 11:04:00>0.2MH LuqikcclqNLMTRZOXIG8478-91-44 11:04:000.4 KmhnhurhpUAMTTLIYWA4671-68-38 11:04:000.0 QuixaoiecDEVGXXJEOE7553-48-18 11:04:000.[facility] WxyabfudeYSWDVZPBDE8866-67-09 11:04:000.0 [facility] 2012-08-10 11:04:0020.8 PmwjrodogQQYPFICFKJ1327-30-41 11:04:0070.5 [facility] TXUADBCTLQ6554-88-47 11:04:003.2M CrxkbczhoONABVTNAWL1528-63-58 11:04:000.1M RpcfjcyheDIVHGFEQLO5352-40-15 11:04:001.0 UibakaxbyYQQFSGLNNQ2328-86-98 11:04:008.2M NedtizgcqOYXYWEHQWG4454-30-44 11:04:009.6M [facility] 2012-08-10 11:04:0010.3M ObqfggakuQGGKGCNCNQ4408-96-54 11:04:003.27 [facility] OEUOPUHQWL6114-79-29 11:04:0032.6M AkulsnwbnWMYRYWHYEK9389-66-87 11:04:0012.7 AkfdjvyucTQGRLWSDRR5035-30-11 11:04:16772RF VwwuzlmssTCTCHBKWSI1916-51-22 11:04:0031.7 HghbvnpprJEUPYEITKL5337-27-14 11:04:0096.9 [facility] 2012-08-10 11:04:00* Test Item Value Reference Range Interpretation Comments MCH (test code = MCH) 31.6 pg 27.0-31.0 H RhxmdimogOHWDKMCIJB7102-95-23 11:04:004.6M SombbtuobNYLGAXJLF8681-77-39 11:03:21924EL GdutufgdmXXIIPIMWJ8088-91-42 11:03:003.2M [facility] 2012-08-09 11:03:005.5 IgwcszsxgNPHVNUKRW7950-39-05 11:03:008.4 [facility] ECMLBNXBB2078-12-83 11:03:000.4 KxstmcfnnMLLXIWZHD6317-84-53 11:03:0070 UalewhgyjWAQCAHDIB0582-38-22 11:03:0022 TmgmkmjecSWBSLGMGN7462-00-42 11:03:006 XzfztjgbdNYOWVTZDM9715-80-61 11:03:000.7 TseujjdwaSMPWADHBO2377-20-01 11:03:0032 EidsyhptlDVDRTXUCG4226-53-28 11:03:0083 [facility] 2012-08-09 11:03:002 PousjxziyGLSLVXDIE3327-09-90 11:03:65197ED[facility] PRHXAOAJG1086-65-14 11:03:003.8 EojapdkhnYDLBMABNQ1302-64-26 11:03:34284IIP[facility]ville State HospitalEgxznnllfNVBNAHBWR0431-17-26 11:03:003[facility] HospitalYatyefgrmQBIJJBAJL0717-64-64 11:03:00 10.8[facility] HospitalUjbpnurlnCKBDBOJZA2383-10-71 11:03:001.4[facility] HospitalTqiohntccYNQHXQLDD4793-11-79 11:03:002.3M FgmdsdpmyDBENRTGLR4464-55-62 11:03:0096 [facility] 2012-08-09 11:03:0026 FucteqsttRGLZAFSSZR4909-34-74 11:03:009.1M[facility] JZQGDPNNSH0952-81-34 11:03:00881RR XyorfxdtvRXOTFIMEER0625-87-67 11:03:003.3M GlbxsihnnIQDOVCSMHU7697-47-14 11:03:003.06 RcttygombMXHHELZWEI9025-80-92 11:03:009.6M FlokxwsooZAAGETMICG6023-10-90 11:03:0012.7 [facility] 2012-08-09 11:03:0032.4 YdmqdffiuGAVEFXJJTV7633-05-62 11:03:0029.6M[facility] YGXZZVEJMD8003-77-79 11:03:[address] [place], [place] [address]LclptvyxdVIFZDWTYLS3028-49-79 11:03:00* Test Item Value Reference Range Interpretation Comments MCH (test code = MCH) 31.3 pg 27.0-31.0 H GqgmrwskbMQYBYRPZJN9755-16-62 11:03:000.0 TsevxmxizMXLBUHRITX6571-26-60 11:03:000.2M PpetberggAZIQKWSKNA3169-55-87 11:03:000.4 [facility] 2012-08-09 11:03:001.5 NrzvlxmtbCGXBXPZFJD1537-01-87 11:03:001.3M[facility] WLQMLUCQSQ7656-60-65 11:03:000.7[facility] HospitalLvgldqresBDLICYXXHT1166-62-28 11:03:0044.5 KtjrodzpaXHTTWEACXD1343-05-55 11:03:0010.8 XyeronihpABTOBCYOFI7847-96-60 11:03:005.3M GsoznpzzlTNGZGQEGAO0840-80-04 11:03:0038.7 [facility] 2012-08-08 13:00:36Negative (08/08/2012 08:00:36) [facility] 2012-08-06 21:00:000.2M PuitghucjTZPTSMJJL3177-35-45 21:00:0014 [facility] SOOKFKOQC2191-83-07 21:00:007.3M XskgfucahLDVUSQSRO7595-10-14 21:00:0028 JygnhlzquOCCWHZNHF2556-49-12 21:00:0043 YsmwlkwloUOVREWHCD6914-33-12 21:00:00 95 VzpbptlezOCDDLMROF2840-61-73 21:00:0095 ZtipgmblpTCFJZSXVY5285-01-83 21:00:49130RK ZfbcwbibtZZGNQSUXX8761-55-26 21:00:000.8 [facility] 2012-08-06 21:00:0010 JwkszlcakJCBHIBARY4376-74-82 21:00:0087 [facility] YJSTMFYZC1499-68-73 21:00:003.5 CupbpgvugZKHOAPMUT3126-96-43 21:00:004.2M NwdlrixjiCMPLVWJNV5523-77-77 21:00:14253RX JsrrydwfqFNBKEWKXC3717-46-07 21:00:00 8.9 YydzmwnqaHUISHDVYT0118-75-38 21:00:003.1M QrjnwkfviPJSJCXWGZ0142-17-90 21:00:001.4 MvwjkypxsZKKMFYMUB7250-21-75 21:00:0012.5 [facility] 2012-08-06 21:00:0012 JqywcsiccUIOJBJCVRA2615-40-26 21:00:000.0 [facility] UHPFSHOXJU2400-64-40 21:00:001.7 MyzxwccloMIJLWFUXGR6722-85-32 21:00:000.3M HojgexyzbFOBAJOAYCL1794-35-26 21:00:000.1M BupmxbzebRKGVORPVMP3879-58-20 21:00:002.4 UgbfqdcflRKHAVPAAGJ7628-76-33 21:00:000.5 [facility] 2012-08-06 21:00:002.0 RxujpnolrWEADTQRUEB7027-87-49 21:00:0041.8 [facility] BNSLPXMTLU0361-19-77 21:00:0048.4 KlwihihwzEWXWKVCOZM5711-62-53 21:00:006.9 RiqeckyddGVREPWQDOI3414-75-41 21:00:004.0 RpnxicwqyXFSLOVRMAM6291-46-47 21:00:009.0 KrjpkocbxDWPYPDKVIW8898-12-59 21:00:34062DN [facility] 2012-08-06 21:00:0013.2MH QarmjjhmqEAWAFMWQOS4693-12-64 21:00:0035.0 [facility] HYVCSMNLUE0275-74-75 21:00:0011.4 LfcixubtaTGYYBFALIY2059-92-89 21:00:003.65MH YlkrpyaeqIWKPBDZKYQ7488-03-42 21:00:0095.8 BbhhtenfqDTBSGYEEZE4318-53-43 21:00:0032.6M CjttybnixXVWIBBNPUB0607-82-34 21:00:00* Test Item Value Reference Range Interpretation Comments MCH (test code = MCH) 31.2 pg 27.0-31.0 H GnkolmmebCSMIDCJZF3406-39-45 22:35:007.4 DhkrqpqieAFQKVMXBD3086-30-87 22:35:003.1M ZnyujckatOHWOLIQGF2630-08-58 22:35:001.4 [facility] 2012-07-17 22:35:000.2M BzmlqyguiJRHCDUNGL7706-79-26 22:35:65803NS [facility] DISSPLZNI9187-93-60 22:35:0045 PtqphcvxgRRQPIMUES2594-90-43 22:35:52133AW XzzkzytafYBKYTQHZB1890-58-62 22:35:0083 GqlmwinvuDONFUXSTP4248-70-94 22:35:00 3.9 UjbyxnvaaRGNLKGPIM6663-40-18 22:35:009 LnahizkteUKBPMNQSY2227-87-95 22:35:004.3M MebcummdxZXEGQQHFP6247-57-73 22:35:0015.9 [facility] 2012-07-17 22:35:009.2M NqiwdmygmUINKLYORJ2563-53-77 22:35:46720UH [facility] EQQNZLWBZ0625-51-39 22:35:0025 SqoptgtprSYGTCTYBV7987-78-66 22:35:43159CI JqoxlmpsqHRERGWPIG5438-99-60 22:35:000.9 HesjajwqkHRHKNIGSD9085-82-06 22:35:00 8[facility]GvnqwcajtZZXYIIRFB6771-36-73 22:35:0085[facility] NortheastMbxyvoqvtXNJKMUEIO4662-92-87 21:00:00Negative *NA*(07/17/2012 15:00:00) [facility] NortheastCohypowbcKAXWMTJID5324-22-55 21:00:00Negative *NA*(07/17/2012 15:00:00) [facility] NortheastWkyzlnfwxTSZJKLZLD8002-23-49 21:00:00Negative *NA*(07/17/2012 15:00:00) [facility] NortheastSzqjiramaEEFWGRVEY1714-88-48 21:00:00See Note 3(07/17/2012 15:00:00) [facility] NortheastZxwvopylrRJAAJSWFD8138-12-29 21:00:00Negative *NA*(07/17/2012 15:00:00) [facility] NortheastBcgxmpwulLGZSLKYQE0159-16-89 21:00:00Negative *NA*(07/17/2012 15:00:00) [facility] NortheastZsgszwihyPZVDPWIFH1247-77-50 21:00:00Negative *NA*(07/17/2012 15:00:00) [facility] NortheastKcfjxwjjwHRKAMETWQ4893-03-92 21:00:00Positive *ABN*(07/17/2012 15:00:00) [facility]CoddxrpemMOGXNTBDNW1616-27-72 21:00:009.1MLeon[facility] HospitalWmoysbcckXDKERWYZBU6817-22-02 21:00:38320ZHPondville [facility] HospitalHEMATOLOGY 2012-07-17 21:00:0012.8[facility] HospitalBqxemougpUNJVWDUKWQ1500-51-30 21:00:0032.9[facility] VRXGFBNNRW5765-31-53 21:00:00* Test Item Value Reference Range Interpretation Comments MCH (test code = MCH) 31.3 pg 27.0-31.0 H ZfpqaaiphYEKPZDKIIQ9928-45-38 21:00:004.0[facility] HospitalTmrhousbgBHQAFZCSHQ6097-12-10 21:00:0011.7[facility] HospitalZonznpxvmYBWVAABNSD9519-90-46 21:00:003.73[facility]HE[facility] 2012-07-17 21:00:0095.0[facility] HospitalBodfycbfaHSJHAHESXJ3908-95-55 21:00:0035.5[facility] ZJYDBMAQIZ4035-49-41 21:00:0054.9[facility] HospitalEiajlgmoiMWJQDPFNCV7089-90-02 21:00:002.8[facility] HospitalXgrvivxybWGQHGJPFML7128-49-12 21:00:007.0[facility] HospitalGovepsajsFFVHMGGOXI9183-54-53 21:00:0034.7[facility] HospitalZpohavyauIBWYOVAMXE7799-47-33 21:00:001.4[facility] HospitalHE[facility]Y 2012-07-17 21:00:000.1MH JhhffuxlvUYAZQDXJVL9375-64-18 21:00:000.3[facility] XBFFNIMHRJ8873-93-63 21:00:002.2MLeon[facility] HospitalVgyeqkkehFWRNNCXLAX9250-49-83 21:00:000.6MH VgpkdxpxxOKMBSGQGYJ4772-06-27 21:00:000.0[facility] HospitalFmtjlauklTJCRQVWBO5906-28-56 07:22:00Negative (07/16/2012 01:22:00) [facility] HospitalPbaeyixjnQSUSKMLOZB2927-62-07 06:05:00Negative mg/dL (07/16/2012 00:05:00) [facility] HospitalEyzblntvvGXICJIGZLJ6768-43-64 06:05:00Negative mg/dL *NA*(07/16/2012 00:05:00) [facility]UR[facility]IS 2012-07-16 06:05:00Negative mg/dL *NA*(07/16/2012 00:05:00) [facility] YEDBGPIHVS1023-73-26 06:05:001.003[facility] HospitalZpmjgdnnaDYITHIJEYD7843-53-31 06:05:007.0[facility] HospitalHquadxcirMILDBYDJBS3888-10-91 06:05:00Clear (07/16/2012 00:05:00) [facility] XLTMHAYLUV8493-35-47 06:05:00Negative (07/16/2012 00:05:00) [facility] QQWHVUSSIN6149-95-25 06:05:00Positive *ABN*(07/16/2012 00:05:00) [facility] VCGPNUSGRO6592-91-23 06:05:00Negative *NA*(07/16/2012 00:05:00) [facility] AGIVYPEYQF1526-57-88 06:05:00<1MH SshzvdvmtPDNSHIOOPL2345-52-25 06:05:00<1MH TxwcsgnegDTHBHDAAEE5653-95-91 06:05:00Negative (07/16/2012 00:05:00) MH RdstnhcggSEZXAHJRS9673-83-04 05:53:06276NI AxwjfsgdcRQRDWNOZR1339-79-74 05:53:00 95 SspaxzsemKERXMXMZF5638-22-24 05:53:004.0 TktmqhmbfHRXSKJVPS1428-11-31 05:53:0030 PfqxxrcafCFOZEUVDC9624-79-15 05:53:008.9 [facility] 2012-07-16 05:53:009MH NraiyxsytYNQXCHLRC9001-53-38 05:53:33549BD [facility] AYIDCUAIN8281-08-07 05:53:000.8 CodmcjrqyHPVFAHSQX3122-47-46 05:53:81690DU JomtjoyzqBWAVMDIIO5892-39-82 05:53:004.0 HtjwhrhwfAGFLHYYHZ8750-64-85 05:53:00 92 BsuyibvldQMIGLERNB5188-45-49 05:53:007.2M AjkoagcxfTQBLVFYLH9686-83-02 05:53:04700NW RvycwyibaXLQCYGTGE7469-54-65 05:53:0098 [facility] 2012-07-16 05:53:000.2M GuwejpwheLDVMKDGIJ4755-31-43 05:53:0065 [facility] TTEGCBMVF0788-05-68 05:53:0011 CmlbwtyuhQSHTJRJGY9440-72-41 05:53:0012.0 IxdrndsyePUPUMDPWK3173-81-13 05:53:003.2M YblbbikceBYCYIGHPG6853-85-76 05:53:00 1.2M GwvnjyiwwLBNDYYXSEM0501-41-50 05:53:001.4 FayqvxxcxSYPFNFINGL0980-20-96 05:53:001.6MH BjzlohuozXKXQGPXVTY0732-61-26 05:53:004.1M [facility]HE[facility] 2012-07-16 05:53:000.6M HjmsdbhxjWUYLTRVTRU1622-41-48 05:53:009.8 [facility] VXIDIXNQDO9342-01-38 05:53:000.1M XlmliidzvTULLUKIQVG9642-15-99 05:53:000.4 ExvrfoinmCOXITNQKIF7737-92-43 05:53:000.0 YkeqtknbxUEMSDRUQWB6447-12-63 05:53:0039.4 VpvpenntiTESFSFYKED3802-32-61 05:53:0046.1MH [facility]HE[facility] 2012-07-16 05:53:63539RYPondville State HospitalBagkqweosTKVFTZSOQZ8813-71-99 05:53:0012.9[facility] TVAGTGWHHB7818-52-25 05:53:008.4[facility] HospitalMptduetjyRCOMEHUDGN4087-02-95 05:53:0096.2MLeon[facility] Morse HospitalOarwmhoveBGIRETLVCQ0437-08-45 05:53:003.6MLeon[facility] HospitalMgipqpakhZUPZPQEXGZ8165-17-08 05:53:0032.6M[facility] HospitalHxpulwkdgTSUZLRRSVR7815-38-80 05:53:00* Test Item Value Reference Range Interpretation Comments MCH (test code = MCH) 31.4 pg 27.0-31.0 H [facility] CenterWnadrzyheVWDWCGYRHQ1659-52-55 05:53:0033.4[facility] CenterQrtabkvpxXRZMVPXBVF5725-02-22 05:53:003.48[facility] CenterCukwfnkojUBHCFDUMFF5715-42-49 05:53:0010.9[facility] VUITHZK4819-81-75 18:07:0068[facility] HospitalOxckpxdvyOVFPBFOCNF4171-96-98 19:30:52 Negative mg/dL (07/09/2012 13:30:52) [facility]YvmfadrwvXKDJRDBBBT6524-50-26 19:30:52 Negative *NA*(07/09/2012 13:30:52) [facility] HospitalLvlccxencFSLHNCRSWF8968-99-80 19:30:52 Negative mg/dL *NA*(07/09/2012 13:30:52) [facility] HospitalJdbcyisusYKWWUNPRPN6517-69-33 19:30:52Negative (07/09/2012 13:30:52) [facility] HospitalDfllhuwbgVVLYKKVMRW9087-92-03 19:30:52Moderate *ABN*(07/09/2012 13:30:52) [facility] HospitalCdibalfgaPQDUZVQOHD0843-77-17 19:30:52Negative mg/dL *NA*(07/09/2012 13:30:52) [facility] 2012-07-09 19:30:52Trace *ABN*(07/09/2012 13:30:52) [facility] 2012-07-09 19:30:521.005[facility] HospitalCxdgxafupQNJUNRAKIO1738-09-30 19:30:52Clear (07/09/2012 13:30:52) [facility] HospitalUizgzdsbeMMPPDFWZTJ4190-56-39 19:30:526.0[facility] BLOOD BANK MZLYAWF1346-78-95 19:04:00Negative (07/09/2012 13:04:00) HxdxisuhxJQLLQHYLX2389-83-87 18:58:0012 MwwlrjyzvWXCYUVTTN8723-37-29 18:58:00 12.5 GeixkxcnjRKLZFUUMH5800-93-77 18:58:001.3MH EaymbtvgkERLEZFPCP6096-40-20 18:58:003.0 FawdgoglrEOVLCNLAO3670-58-63 18:58:0073 [facility] 2012-07-09 18:58:003.8 OupxyrwmwGWDIXSZEJ1746-49-74 18:58:009.5[facility] ENRNIQGVT9680-10-54 18:58:75294FL UvfosaxkoCCXYEIZQM4710-76-23 18:58:0031 KqrswdokzWHBJVBEJC6307-35-96 18:58:60766JNRobert Breck Brigh[facility] for IncurablesTgmwnzkjbIKUHNBIOF1880-36-31 18:58:00 1.0 QeqpfrhheWYOWZJSEN9511-58-91 18:58:005.5 AodlhuyusVWRGPQMBJ6294-20-89 18:58:0012 RlbconlfcKMAAPZJIC8696-00-15 18:58:0084 [facility] 2012-07-09 18:58:006.8 FplprutztQONFBLOEM9661-02-56 18:58:0092[facility] KSLFBUCLD6859-70-83 18:58:000.2M CybwhzpyjMZPGYCIDY1499-56-06 18:58:0044 GzuiqzrheXLLDEQNBD1992-87-40 18:58:0013 ResdlaqsrGYEZCMSMTH2250-30-10 18:58:00 0.2MH KpyapkvdxTWUOSCPDCV7589-18-02 18:58:000.3M RcdqhuqavMKHOXFKFFH4090-92-12 18:58:004.7 SkrrdtpykQAOMUZXGWS2790-76-38 18:58:0010.2M [facility]HEMATOLOGY 2012-07-09 18:58:0050.5 ShkmaoqlvDXSZNGMMAR4892-84-08 18:58:000.0[facility] APOCJWCMUB6405-09-03 18:58:000.3M FdkqgrputDIHVELLBON8457-26-23 18:58:001.7 ZwefzqwzcDTUSIKQSNU6034-62-27 18:58:001.1MH OjqqzsutfJGKPNEBJSA7749-96-43 18:58:0034.3MLeon[facility] HospitalWdnarveblMBBSMSKGGI7194-57-44 18:58:003.35[facility]HEMAT[facility] 2012-07-09 18:58:0012.9[facility] HospitalWkygjyjvaSTHTSDJDJJ7949-78-99 18:58:00* Test Item Value Reference Range Interpretation Comments MCH (test code = MCH) 31.7 pg 27.0-31.0 H TushayufdSRUNFLPFDN2733-08-50 18:58:04118SAPondville State HospitalMaveybdxyVHXCZTVEBB0097-43-83 18:58:0032.5[facility] HospitalHewyciesuTSRJFCLUMC4734-73-97 18:58:0097.4[facility] HospitalHEMATOLOGY 2012-07-09 18:58:0032.7[facility] HospitalMtfijlsfmPZZKMQWJLO0684-01-93 18:58:008.9[facility]2013-02-25 18:58:003.3MLeonard Morse HospitalVtujmonezMJILLUMEPG6769-23-76 18:58:0010.6MLeon[facility] Morse HospitalPhigpxwuhYBHRRUQXUP4585-27-86 07:50:001.009[facility]PgtfrxvmkLLNWQJZAOI8327-66-15 07:50:00Clear (07/08/2012 01:50:00) [facility] HospitalKzrncbqasRJOXFUKWOL5261-43-33 07:50:00 Positive *ABN*(07/08/2012 01:50:00) [facility] HospitalBhcfvtmlvITHCHMLJZP0958-25-36 07:50:00 Negative (07/08/2012 01:50:00) [facility] HospitalOkapdseyoWNCUBSMCXP4825-00-77 07:50:00 Negative (07/08/2012 01:50:00) [facility] HospitalCrnmwdvenMFPODBGIYP1145-80-44 07:50:004.0[facility] HospitalSthvydhmsXVQFRUMZBD0963-60-57 07:50:00Negative *NA*(07/08/2012 01:50:00) [facility] HospitalSgqgejrzgODECRPYQGS6807-03-36 07:50:00Negative mg/dL *NA*(07/08/2012 01:50:00) [facility] HospitalSzcqvajchUFTEPKYVXU3516-14-42 07:50:00Negative mg/dL *NA*(07/08/2012 01:50:00) [facility] HospitalMktaswgatEQDHFQEMUC5134-76-92 07:50:00Negative mg/dL (07/08/2012 01:50:00) ZsiufkebtFCJNKZQZXA0687-58-29 07:50:006.0 [facility] 2012-[facility]07 06:55:0083 BfwtovkuiNFLMEYJGD8451-79-79 06:55:003.6M [facility] VQEHKTMUA6746-05-49 06:55:74512TK HslcmnmdpGWQKYQEFV4880-97-85 06:55:000.9 MpaskloufXVUOQYPRI0938-11-47 06:55:0014 GmvkooafiAIYZMYJRA9179-95-69 06:55:00 88 YfkgejbuxGBBJATNSX1126-16-66 06:55:0067 TbuegbwjdTASEHHFXE8992-22-02 06:55:003.5 YwnxvwnibATDNRHELY2371-48-48 06:55:001.2M [facility] 2012-07-07 06:55:008.6M AmbqacouvLHJRXSYRY8987-17-57 06:55:0016[facility] HDYVXKVMM0778-58-69 06:55:0012.6M OwmcymrriSNVNTXQHF5181-08-77 06:55:004.1M UjzqfyencJFGJAASZU2181-33-93 06:55:007.6M MkgotvesuQYJAAVAVP0679-26-18 06:55:00 100 JqivtvnnuBUTVNGQNH8383-72-01 06:55:0031 FcbzkbyuxVGAPJWMVV5827-74-07 06:55:000.1M YvdwainxnLYRMXKRLF2807-43-49 06:55:0028 [facility] 2012-07-07 06:55:46540KZ YszfxxqyvHPOMZELPYS8679-46-12 06:55:39721[facility] PLVPJAYCCS2579-69-31 06:55:009.5 CqpjrszzaFOQHWUEWRL0834-72-75 06:55:0011.0 QljglvygmEBDCVPKDQY9704-91-48 06:55:0095.8 BtsfpavtvRYRGBKAPTL0926-41-25 06:55:00* Test Item Value Reference Range Interpretation Comments MCH (test code = MCH) 31.6 pg 27.0-31.0 H BdfvdcvmpCQEXLDIROQ6765-28-13 06:55:0033.0 EzgcliubgXVQRMQQYWV7519-54-94 06:55:003.3M UibkscidiLUUWAOHXAE5091-77-62 06:55:003.47MH [facility] 2012-07-07 06:55:0013.1M MijlkffywELBDFRDVPB6177-32-56 06:55:0033.2[facility] HYTLCQWDDI9609-87-12 06:55:0039.4[facility] HospitalSdeiyqqvcPXDYFLZKBQ8824-28-06 06:55:000.1M[facility] HospitalAtgzknmghTPTRMUNYOI4827-95-76 06:55:000.0[facility] HospitalIvdspumxrQOGUNWESHO7828-93-17 06:55:0012.7[facility] HospitalZmvxilwcfVUARDNWMNY1761-74-85 06:55:0044.6M [facility] 2012-07-07 06:55:002.7[facility] HospitalExmiazvwpKQQUGFUXHT3152-66-68 06:55:000.6[facility] OAXVWJNAST9981-22-90 06:55:001.3M[facility] HospitalPnzpfexnaUIRFZXCLIC7622-42-93 06:55:001.5[facility] HospitalYyxziobwsVXTFBUBIHJ6240-07-07 06:55:000.4[facility] HospitalUjysfgqtdUYQXFAHYK9938-69-19 05:36:00Negative (07/06/2012 23:36:00) [facility] HospitalVolbplrcuCAXJXTKWFF2621-56-09 05:36:00<1MH VddjknacpNEESGUEYRV0804-39-42 05:36:00<1MH [facility] 2012-07-07 05:36:00Negative mg/dL *NA*(07/06/2012 23:36:00) [facility] DVKSDOIQYO8686-07-37 05:36:00Negative *NA*(07/06/2012 23:36:00) [facility] LFBVIXKXJK8455-10-58 05:36:00Negative (07/06/2012 23:36:00) [facility] JDPWRSTJXX3945-01-55 05:36:00Negative (07/06/2012 23:36:00) [facility] IHRWBGIJZC7790-35-60 05:36:00Negative (07/06/2012 23:36:00) [facility] XDAZAWBMNL8569-96-81 05:36:006.0[facility] HospitalKgnlrokkmYYZWFDIYRC7757-03-01 05:36:00 Negative mg/dL (07/06/2012 23:36:00) [facility] HospitalBvggihgggIAWIQMZSJN2455-51-81 05:36:00 Negative mg/dL *NA*(07/06/2012 23:36:00) [facility] HospitalTfatlzhitONZBTJDLOY3991-30-37 05:36:00Yellow *NA*(07/06/2012 23:36:00) [facility] HospitalEtbfrwazoYTOOHDUKBZ5193-83-58 05:36:00Clear (07/06/2012 23:36:00) [facility] HospitalRsjsrhrffRVLAZIXKFY8055-55-32 05:36:00 1.006[facility] HospitalEyqlmtkucRBICYCYLZI0531-04-55 14:30:00Yellow *NA*(05/31/2012 08:30:00) [facility] HospitalSsafzrggeRKSPXPOBLB3916-82-00 14:30:00Clear (05/31/2012 08:30:00) [facility]TfvgdnrhfJJKYZDQMYB2700-79-10 14:30:001.016[facility] HospitalWixxqnyyaEDUOZIEBKT7960-36-73 14:30:00Negative mg/dL (05/31/2012 08:30:00) [facility] HospitalBoadrsskhRRWPAHFCXJ2796-16-48 14:30:00Negative mg/dL *NA*(05/31/2012 08:30:00) [facility]URINALYS 2012-05-31 14:30:005.0[facility] HospitalBvfiharfeRIJSBQPEYH1928-58-28 14:30:002[facility] HHMFPLBLQR7972-38-18 14:30:00<1MH VzwsfiljbRWXMRKXPAI8359-65-52 14:30:00Few /LPF *NA*(05/31/2012 08:30:00) [facility] HospitalSvncnghryHJCUZLBXSF6879-86-82 14:30:00Negative *NA*(05/31/2012 08:30:00) [facility] HospitalNgeyavgwhYSMNXKLITQ7809-65-13 14:30:00Negative mg/dL *NA*(05/31/2012 08:30:00) [facility] HospitalNxvskbzrsKLQAOQVTSV6690-63-14 14:30:00 Negative (05/31/2012 08:30:00) [facility] HospitalVboohncodOIRBBCMHJB3496-26-41 14:30:00 Negative (05/31/2012 08:30:00) [facility] HospitalGejfhjzttJRJXNOWVUH3098-03-56 14:30:00Small *ABN*(05/31/2012 08:30:00) [facility] HospitalYsvztlwajNNPAIBKSZR3643-15-84 14:30:00Occasional /LPF *NA*(05/31/2012 08:30:00) SrhbeeeatDJFXHHUTC9298-32-86 14:03:00<0.5 TnmtapimuGJIRMIAHQ9339-26-86 14:03:00<0.02 HbibcqyqzTFBNLCVOS7082-80-32 14:03:0017 SgozmezyxZKKJOTQBI4316-78-63 14:03:002.9 [facility] 2012-05-31 14:03:000.2M BlurmirgbGZABPGXZG4847-43-66 14:03:001.5 [facility] MDASWXWNA5971-96-20 14:03:0086 KdxebakooGHKTMUAPF2931-11-71 14:03:0061 VvxmhdzlfAJDQHDKZW2123-47-30 14:03:007.2M TajgbsrosNBWRTJVAE7881-84-04 14:03:00 83 XmazctzpvMZPEHWXSO8085-16-07 14:03:0014 AplpbvkxfHVRXSWGKB3800-86-02 14:03:004.3M OfgbfcyseGBDDCWCYK3330-30-96 14:03:0011.5 [facility] 2012-05-31 14:03:009.0 KzgwnnhiuEVOZGDUGQ0319-07-41 14:03:0028 [facility] NLMYDNEXL3723-35-22 14:03:64898ZB TxdllbhltJUXPPIJFU9083-50-97 14:03:77209EF OwavogzsmXNORJDOKP0043-09-05 14:03:000.9 JscfyvsgrHSWUEOMGM3059-87-70 14:03:00 3.5 KkhvnvxhsZBIZDAMNV4305-22-71 14:03:71190JT JdempfvjrAIOSCABJF7579-16-13 14:03:0013 KkdubellcVWEQVYYYJ4835-81-32 14:03:0074 [facility] 2012-05-31 14:03:00<0.7 SmunelridJKSNCCHQAB8815-72-80 14:03:000.93[facility] OJIYEJAFLZ6680-95-72 14:03:00* Test Item Value Reference Range Interpretation Comments PT (test code = PT) 12.7 s 12.0-14.7 N MjsxununeVGCLPCGINS4964-38-07 14:03:0012.7 VktvoelsuAFENOVDSHS5135-97-67 14:03:00* Test Item Value Reference Range Interpretation Comments MCH (test code = MCH) 31.9 pg 27.0-31.0 H VftdwmzeqNGHMWUSIDD0419-67-54 14:03:0033.0 TbtblxityBIQPSHMTDT9468-24-76 14:03:003.83 YvirrdueqWBFMWAYCIN1110-44-25 14:03:0012.2M [facility] 2012-05-31 14:03:0037.0 TxvetwhfiCGYZLGYAKH6117-76-24 14:03:0096.6[facility] MOWXCYQVEX4320-92-31 14:03:005.7 LxfgiaorfMSUSREYQCR6765-16-25 14:03:05399RD QaxzjvcmwPAHFMEQWCI4551-23-52 14:03:009.6M GpphuuzaaWMXKZFNKAQ4761-84-35 14:03:000.5 GnrgyfncsXLZCYOINMD1696-97-95 14:03:003.3M [facility] 2012-05-31 14:03:0058.7 GthmpsglbGVJDNOACHZ9135-59-52 14:03:001.9[facility] DOGFQMDOVZ7287-86-89 14:03:0033.6M NbetkqzcpQAZFFCWGPH6541-79-95 14:03:000.3M LvfrqlbagWIXVEBQZDI1000-73-50 14:03:005.5 PaxuozejoPQVCNBKXXE8641-62-28 14:03:001.7 EfgxxbhcmJDDCUFBQIW4745-18-46 14:03:000.0 [facility] 2012-05-31 14:03:000.[facility] FhvlxujppWQKOEOFPC8727-75-59 20:43:000.2M [facility] KVMZKEJYW4570-89-29 20:43:0017 OgbevuwjxNXTHPWKLL0236-97-20 20:43:0077 IenhdlbvqIFRRNEDDH7350-86-65 20:43:006.9 WheiqdfdzQOZFSAOEJ8898-29-11 20:43:00 49 HsxknbuovFBKGUVVMQ3151-09-72 20:43:0095 AqrqurzdrECWLFVRSR1255 20:43:008.6M LrmykqehvEKJVGDEYM2622-13-28 20:43:003.9 [facility] 2012-04-08 20:43:0028 VlbcqgztqVEVRUEQUD8904-85-69 20:43:22251BQ [facility] RDBJTBVTL1413-98-61 20:43:0085[facility] HospitalYhwpbgkzsMLBCWOFCS2621-55-58 20:43:000.8 QetqvcguqLMTEGEMEN1710-37-21 20:43:004.2M JhrrqnphbZFTLWYOVK4389-31-72 20:43:00 145 YfbgaoporFPIERMVSU3741-98-19 20:43:0015 IzfxopwuiEQLMGNOXN7815-29-21 20:43:001.3M JvsjcrecdKUYTFWUCD0645-28-36 20:43:003.0 [facility] 2012-04-08 20:43:0015.2M YtufbmeogTZSFHSARW2198-21-05 20:43:0019[facility] EULWZIADEQ5121-18-01 20:43:000.0 YhzjwnykxRJMAWNZFQQ8025-49-31 20:43:000.1M UrynoyguaKIKCIGPAUS8736-03-88 20:43:000.4 HfkwerlntTMYHTRRSCZ0132-05-39 20:43:002.4 QysnmfqkwDBZTLDGZJY9653-46-37 20:43:000.6M [facility] 2012-04-08 20:43:003.1M IihatunmyBZHIZXMRUX3985-29-31 20:43:001.6[facility] JCMLHJNAAY3723-86-18 20:43:008.6M AesnrtatcNKXVHMZKBK0193-61-13 20:43:0052.7 QduslnutbRLZCPEXISI4887-30-78 20:43:0035.0[facility] HospitalWvwebeqldUPGAOGTQQZ9924-74-86 20:43:99613BH FbfgprappEHYLZDOIEV5558-61-33 20:43:0012.9 [facility] 2012-04-08 20:43:009.2M GkpisjavtIPNSUHSZLG3076-95-52 20:43:0011.9[facility] XFGVWCVKNK2670-47-75 20:43:003.64 HhumwynikKJVZXVUBRR4136-19-88 20:43:0035.3M QdznwmeabUYQQKAMZXI9608-12-20 20:43:0097.2M KvpwmccgrVVWPRWANVP2817-56-84 20:43:00* Test Item Value Reference Range Interpretation Comments MCH (test code = MCH) 32.6 pg 27.0-31.0 H SjhhdhrfiRJNXTTAYYA8973-82-75 20:43:0033.6MH JieqfewlmNFNVGGSANC6146-44-61 20:43:004.5[facility] HospitalHyhrpibhyWCGWOMZXN7518-76-14 03:46:00See Note 4(01/24/2012 22:46:00) [facility] HospitalSctiypcqyZQNSMTZBB0885-53-95 03:46:00Negative *NA*(01/24/2012 22:46:00) [facility] HospitalCiiahxicuMYWNXTLEZ3537-44-95 03:46:00Negative *NA*(01/24/2012 22:46:00) [facility] HospitalBedcelrrdWMIJRWXRS0348-72-38 03:46:00Negative *NA*(01/24/2012 22:46:00) [facility] HospitalVuhfzvlqlFLVJHGAXK0084-31-12 03:46:00Negative *NA*(01/24/2012 22:46:00) [facility]UylsoalikSMKGTZWIU5765-40-16 03:46:00Negative *NA*(01/24/2012 22:46:00) [facility]TqunqvonxEXGFLJLNH1820-86-40 03:46:00Negative *NA*(01/24/2012 22:46:00) [facility] HospitalYwbzuobtaEFNRWONIO9324-55-32 03:46:00Positive *ABN*(01/24/2012 22:46:00) [facility] HospitalDsfmkgxjrRZIFFZDSHY0431-39-09 03:46:00Negative (01/24/2012 22:46:00) [facility] HospitalNjbnmrspeGMVILYYKID6749-32-57 03:46:00Negative *NA*(01/24/2012 22:46:00) [facility] HospitalQxpquaezhFRNAUQFXEA6609-04-74 03:46:00Negative mg/dL *NA*(01/24/2012 22:46:00) [facility] HospitalQkoesjeymMTNWOTWBKU5855-74-11 03:46:00Occasional /LPF *NA*(01/24/2012 22:46:00) [facility] HospitalRvkvdmdpiVFKADRHXUF0416-92-09 03:46:00Trace *ABN*(01/24/2012 22:46:00) [facility] HospitalSphwimqhmNMUSWIEILM2898-22-79 03:46:00Negative (01/24/2012 22:46:00) DdicnsyarQQGRCAVFNQ7199-94-22 03:46:002[facility] ASZTIAOFDK4630-15-33 03:46:003MH AzackumffJQEMRYEIRI5508-34-52 03:46:00Negative mg/dL *NA*(01/24/2012 22:46:00) PikkcqzikEBIXNLNFKM1243-68-45 03:46:00 Negative mg/dL (01/24/2012 22:46:00) BpbadwxrnWLALVPNUJP3884-65-42 03:46:00 6.0MH WjafkemigLLFHKMUHRR3928-08-64 03:46:00Clear (01/24/2012 22:46:00) FbqtpvepmGGRABNEMHR0280-84-62 03:46:001.002 [facility] 2012-01-25 03:45:39712SC LhtdhsdujOGWYIWXSO3666-63-83 02:46:003.1M [facility] XTZWBNVCV8995-14-54 02:46:001.4 BhdvbsujsTGEZFLKAP0437-27-94 02:46:0014 IcuutnoakDZHWLCGCG6821-70-98 02:46:0013.5 JrmyrwwcjBOCRYSPIU7189-74-21 02:46:0076 OumjknsfoSHRLGCCOW5554-25-88 02:46:007.3M [facility] 2012-01-25 02:46:0045 MpzbjgkghYKRHJKTKA3050-36-62 02:46:0095 [facility] ZNXXCWGJY6853-69-11 02:46:000.2M BhpsqelitWUCNNVPEQ5323-29-46 02:46:0079 MhcbuowlmCGAFAZFFB9660-42-16 02:46:0011 IqrcmcbwqBXGZEOWBT8914-67-08 02:46:00 0.8 UshwdmzklXDEBHAYFT0292-81-86 02:46:10012PB RxfngtblvEJNDGRSXL4845-35-77 02:46:0026 QhoyufqpdDXJWGUAYN7807-19-02 02:46:51928WN [facility] 2012-01-25 02:46:003.5 PrajxluqcBEYHBFDMA5979-14-32 02:46:009.1M [facility] LYPDAAOWW7408-67-00 02:46:004.2M YykkoyuklPMPTQVWQZD6589-69-86 02:46:000.4 SdwtxpvozMDONHSEFXG0615-93-54 02:46:004.1M YxnuckqheIVJNVVZETZ0871-38-50 02:46:002.2M HlozmucktNICMCDZKJO5828-28-65 02:46:001.4 [facility] 2012-01-25 02:46:008.5 LycaqdxqmNKEMMXCZEQ7887-22-51 02:46:000.0[facility] ETWEJYJGGM1771-79-48 02:46:000.4 KjrultbizPYTEXNNXMK0165-97-88 02:46:000.2M NjxrtybplYHORVETYIC6456-98-56 02:46:0034.7 RmgmnjdroMUKSXWPXHX9942-50-12 02:46:0052.3M PuhmwzhexNZLDWKOCTK7689-74-45 02:46:003.72 [facility] 2012-01-25 02:46:0095.6M LpxsmcopsXUFGANQMLQ2556-79-29 02:46:0035.6[facility] UAGHDSLAUI9888-32-62 02:46:0011.8[facility] HospitalGybewdxohWWUGNEJQPY0916-12-39 02:46:00* Test Item Value Reference Range Interpretation Comments MCH (test code = MCH) 31.7 pg 27.0-31.0 H SuamjsdatQFCGFUWEDC6226-83-07 02:46:0033.2M RpownbzdgMQIRGDXTCQ6092-30-99 02:46:0014.1M UrzsujwiaEAGFSUJZWW3207-36-96 02:46:004.2M [facility] 2012-01-25 02:46:04912BZP[facility] HospitalCljxhwbpzMBWHHGSOHV9274-17-19 02:46:009.9[facility] BEDSIDE GLUCOSE HMAMYKE9020-49-50 02:32:0091[facility] 2012-01-02 12:48:0065 PxdzecgfkWWDZUGPGF8996-07-22 10:05:0011.5[facility] AAJSFOHCC1653-88-09 10:05:004[facility] HospitalNhoopsduaHDTRXIOYS2785-44-32 10:05:000.6M[facility] HospitalOwyexxxsaMCHLHXUKT4483-82-98 10:05:008.3M[facility] HospitalPflbskuxlIQNWHFNTJ9564-83-26 10:05:00 26[facility] HospitalUavzcisxcKCWMPCYWE1119-41-60 10:05:0070[facility] HospitalPcdgjvdzlWVLSIBGXW7618-56-90 10:05:09275NXPondville State HospitalPhkawrmlfLNUOFSXMK6394-69-32 10:05:003.5 [facility] 2012-01-02 10:05:02502GVPondville State HospitalNvpajjmuhGRQDMHEVST0215-73-23 10:05:000.0[facility] HSDQNACGUX4445-75-06 10:05:000.2M IxfvduyzjNVZKEXRURC2978-80-65 10:05:000.1M[facility] HospitalCodtdqxnfCKCYZDLBKM1539-40-44 10:05:001.6M[facility] HospitalGtrmqpkzcTNRCWPOHDG3324-54-44 10:05:000.8[facility] HospitalIfpvdshedXOCJTGIRRY0816-07-39 10:05:000.6M [facility] 2012-01-02 10:05:004.9[facility] HospitalIkuhxpwpfNKKKKAOJEJ3630-77-67 10:05:[address] [place] [address] HQLDFICPCW0507-79-75 10:05:[address] [place], [place] [address]IqrileyzlPBGDITDBOH1611-56-19 10:05:00Normal (01/02/2012 05:05:00) [facility]qjuhnlgUPWFLTIWEW1808-12-79 10:05:0024.[address] [place] [address] MVBEJJZDPG3359-19-18 10:05:00Normal (01/02/2012 05:05:00) [facility] GQIMTBDNRV9706-18-33 10:05:001.08[facility] HospitalMssotkknrMXBIHWONCH9266-86-73 10:05:00* Test Item Value Reference Range Interpretation Comments PT (test code = PT) 14.2 s 12.0-14.7 N [facility] HospitalCiuwhmxnaTQLADEELXJ3237-08-09 10:05:00* Test Item Value Reference Range Interpretation Comments PTT (test code = PTT) 32.6 s 22.9-35.8 N [facility] HospitalFfqqrxplmHLYYBUYHPQ4433-22-33 10:05:[address] [place], [place] [address]LtojyrttlNOVKCBCPGG7013-29-09 10:05:009.5[facility] HospitalKazlzbhbxTJSMVZMTAQ9137-07-42 10:05:00* Test Item Value Reference Range Interpretation Comments MCH (test code = MCH) 31.8 pg 27.0-31.0 H HuqpcmtoyBEPTOGZJRN2470-09-58 10:05:0094.3M TethkeldaDKWWNUHJBP2071-15-94 10:05:0033.8[facility] HospitalBfidazdfzKXWWRFRSEX9425-46-59 10:05:06636SF [facility] 2012-01-02 10:05:0016.[facility] ZzxbynpbxVXFEUGKFYO4344-83-32 10:05:0010.4[facility] QLHUKWZUVW6868-74-99 10:05:002.99MH YliuocqxxTYIZRYUQAV7781-53-18 10:05:002.6M WjtlaharaNIOELPNTQM1964-17-11 05:15:0010.7 YwaweityrCVDDMWJUZV2500-85-96 23:30:0010.4[facility] TYLABMX6885-95-50 13:51:00Negative (01/01/2012 08:51:00) VmioyyzolCJPXPIGEEP5506-16-95 23:55:[address] [place] [address] HBECGRCEUL3414-41-03 23:55:28814FI GzqggpgdcBBEHKHRWKI8696-96-91 23:55:0032.[facility] PwbzwnianYZIGYJZUAA1873-83-17 23:55:0016.5 FfvhgsqlwFLCPIAPUJV4069-54-85 23:55:0094.[facility] KmalwewhgACZQGRLTJK8407-44-70 23:55:0033.8 [facility] 2011-12-31 23:55:00* Test Item Value Reference Range Interpretation Comments MCH (test code = MCH) 31.8 pg 27.0-31.0 H AsayvleygPUEYJGZFLA6006-50-65 23:55:003.3M ZkfvqjaurLZXKVSTPPC9076-79-95 23:55:003.42 WujlhibaeTPFVPPDGKS4273-35-02 23:55:000.2M [facility] 2011-12-31 23:55:000.2M XduwxqryzJCVHWWPXUD6059-33-76 23:55:000.0[facility] FSKPIIVTOK7302-66-23 23:55:001.[facility] XfogswtxdVWFXVQQEDM3896-60-95 23:55:004.5 FevilpnlyNHSJUPKJBX5242-23-31 23:55:000.8 KevcfwgucQIXBTJQAPD9946-58-08 23:55:0036.[facility] FdrtlgepjRQWORMIEAX4577-22-05 23:55:0052.7 [facility] 2011-12-31 23:55:005.7 WnhiowaniXNIPGHDEGA6573-08-16 23:55:001.[address] [place] [address] STOOL HBPAV8621-14-60 05:13:00Positive *ABN*(12/31/2011 00:13:00) [facility] GANHVKIBV8394-85-33 04:17:0010[facility] HospitalKamsjfxneOMCRUHPAJ5589-12-25 04:17:004.5 DjjxulwggSENUZNGGZ2067-24-94 04:17:0046MH EvvqsgstcATJURICEW3379-09-89 04:17:00 0.2MH GxlmtdbqoACTDQERBT0948-86-74 04:17:0023MH ZfjqsjazbJUKMBFCKE7653-78-00 04:17:003.8 KxduvltlmBKSTQCQCE8462-84-17 04:17:31083EH [facility] 2011-12-31 04:17:007.9 TbxgapegxMLFZPSMIG3589-13-89 04:17:0094 [facility] CBGCGYZZB7796-57-58 04:17:0091 LwvapzufxPTPYQAZYO9664-61-14 04:17:009.3MH KdugccgyeCQTYTACIP8458-74-09 04:17:0014 NayznatizNQZWYMZXF4921-39-92 04:17:00 140 TjzkslrhvOSQMCGCOB0195-71-21 04:17:000.8 YelmwmklnCPXHOPEOP5054-38-71 04:17:0013.8 TukosqowySJTGMEALD8501-30-67 04:17:0018 [facility] 2011-12-31 04:17:001.3M NfsfnynhtHJMQEWDFI4785-97-32 04:17:003.4 [facility] BMQFEUWER4186-23-73 04:17:74434DY DiagqstgoQEMSTBMDRK8377-65-37 04:17:0016.3M FzcdrjhyaXADTFIONEF2921-48-07 04:17:18239TL GkjhjbsisAHSECZTRUW7234-02-66 04:17:009.9 SmpptpnhpHKTEFEYAKT8088-94-41 04:17:0038.6M [facility] 2011-12-31 04:17:0094.4 BfjkfvtagSFSOVARCGY0895-97-64 04:17:00* Test Item Value Reference Range Interpretation Comments MCH (test code = MCH) 31.3 pg 27.0-31.0 H SibmqotkmVZPYYOGGHC6591-83-67 04:17:0033.2M RisrnwawaESQBGSFDPZ1763-90-84 04:17:006.5 AmkvcuwxxGAKKJTZIEO7161-57-36 04:17:0012.8 [facility] 2011-12-31 04:17:004.09 IbipjiapyJKBDKGJRJK3513-27-50 04:17:000.0 [facility] PFHKMWLNRJ9000-77-81 04:17:000.4[facility] HospitalTbxdwcisjNQVOMHSSDI6044-21-29 04:17:000.1M[facility] HospitalRelrvnlijNBDNNJRJVP9410-48-81 04:17:0058.4[facility] HospitalHvatmiijhRXQHHCQSXG7284-60-28 04:17:002.1M[facility] HospitalKmsdqewnsCELBMCYRFM6445-71-48 04:17:006.[address] [place], [place] [address]HEMATOLOGY 2011-12-31 04:17:0033.0[facility] HospitalVxhqyxsewLSXXQLXDTM2861-27-39 04:17:000.4[facility] FFBDQJLTPM5994-59-76 04:17:003.8[facility] HospitalRtbnedpqnEZJTWXZKHT0380-28-79 04:17:[address] [place], [place] [address]VthqzuhvnEFMZTSRVDS1935-74-37 04:17:00Negative *NA*(12/30/2011 23:17:00) [facility] HospitalJeyqoxegiUPNSOOVHGK2815-80-07 04:17:001[facility] HospitalGjzsedevlTRINDJPBFT3128-41-62 04:17:[address] [place], [place] [address]YegoxhrcfQOCEHUGCWQ7496-51-77 04:17:00Negative (12/30/2011 23:17:00) [facility] HospitalHasbctintCENMPWLWSM3705-41-80 04:17:00Negative (12/30/2011 23:17:00) [facility] HospitalZucjzwgxbZMHIWNDHUL9759-32-27 04:17:00Negative (12/30/2011 23:17:00) [facility] HospitalCylgeoxhvTVQCHAWDHL6504-75-84 04:17:00Occasional /LPF *NA*(12/30/2011 23:17:00) [facility] HospitalOesyrdqzqMGIDEDWWLE9066-19-37 04:17:001[facility] HospitalNekggeqzhHGKBTPZQMK3699-49-00 04:17:00Negative mg/dL *NA*(12/30/2011 23:17:00) [facility]UR[facility]IS 2011-12-31 04:17:005.0[facility] HospitalQtczqmprrTQGSOHCBBZ5228-68-46 04:17:00Negative mg/dL (12/30/2011 23:17:00) [facility] HospitalTmpxdjenjXTJBQTAROY0230-28-06 04:17:00Negative mg/dL *NA*(12/30/2011 23:17:00) [facility]GalezqgncICKRKPFQVQ5343-15-76 04:17:00Negative *NA*(12/30/2011 23:17:00) [facility] HospitalFatvwtkzhAGPORDDCNJ8537-07-98 04:17:00Clear (12/30/2011 23:17:00) [facility] HospitalAqomovcjiQEEUEODYYD2418-31-89 04:17:001.019[facility] HospitalUavfyjqhoEGBDQOPPAT1444-03-50 06:36:001[facility] HospitalGvjddxikeGUVIJGIFZP9901-81-13 06:36:00 6[facility] CampusMjrtjshkqJQWECJXGFU0729-83-42 06:36:003[facility] HospitalZxwsrsbwoJQDSIAWBGD0795-64-69 06:36:00Few /LPF *NA*(10/16/2011 01:36:00) [facility] HospitalVpkezgejoVSULECSTBO1220-68-72 06:36:00Moderate *ABN*(10/16/2011 01:36:00) [facility] HospitalAseehptukBRYWQJXYEY4230-47-11 06:36:00Occasional /LPF *NA*(10/16/2011 01:36:00) [facility]ALYS 2011-10-16 06:36:00Negative mg/dL *NA*(10/16/2011 01:36:00) [facility] IOBROSZREB8272-83-82 06:36:00Negative *NA*(10/16/2011 01:36:00) [facility] XNNTKBWYJF3583-88-50 06:36:00Negative (10/16/2011 01:36:00) [facility] MFUZKZTBKX5766-27-28 06:36:00Negative mg/dL *NA*(10/16/2011 01:36:00) [facility] HospitalBpvslutxoZKCAJSRIDJ5336-27-45 06:36:00Negative mg/dL (10/16/2011 01:36:00) [facility] HospitalFrzjoytogKTVHQKQXGX5413-66-63 06:36:00Negative (10/16/2011 01:36:00) [facility] HospitalAqkvkkugfLKXLYIIULH8642-44-04 06:36:00Slight *ABN*(10/16/2011 01:36:00) [facility] HospitalGooaxcjdjKTCRGGTPPZ3966-97-96 06:36:001.019[facility] HospitalReyshaysrCQJTLETMCY4960-69-04 06:36:006.0[facility] HospitalMvobgnvnjUTWPCHYVA6482-99-89 06:33:0014.7[facility] HospitalCHEMPRES[facility] 2011-10-16 06:33:000.7 ZloeumvcfVNPXBULOI6747-98-11 06:33:94175CFP[facility] Hospital QUXKGFKVH0230-25-06 06:33:0014MH EcgxzljnfBCYHIFOCX6383-01-39 06:33:0091 WsgfcrtdpUZLVFGIIA6297-31-42 06:33:0023 RokejddafINLSKFOUG1782-21-63 06:33:00 8.9MH JthhdjlzoXBGXYYHSR0075-24-28 06:33:003.7 VtsuegozjVZQEDHIUZ9420-99-50 06:33:69528PP QtgwxqztfVKVCZQPEKM4872-19-77 06:33:0040.3M [facility] 2011-10-16 06:33:004.6M RlvtxkmxmCWPYFJQVFX7387-13-23 06:33:0016.2[facility] OXJACFGMKN0611-06-24 06:33:0010.2M CyzzgktpjPVWDGGZHCN4992-03-58 06:33:00* Test Item Value Reference Range Interpretation Comments MCH (test code = MCH) 30.8 pg 27.0-31.0 N TstyeyacyZVGGSQHQKR1404-21-92 06:33:0033.4 UxwwkwaqzEOUVVHHFYI3975-49-92 06:33:84907JC MvklpfeyoYQODPUJRHU4266-81-11 06:33:004.37 [facility] 2011-10-16 06:33:0013.4 NiakueavpZVZFGSYJRY8628-55-28 06:33:0092.2[facility] EXNMICDQXJ2194-98-29 06:33:001.9 DidyceoxvGLRPAIRKDT6870-03-27 06:33:000.1M MdmxvulwzYVXZARSGCU8755-06-66 06:33:002.2M OizomqbpgYSWMUDTHAV8597-80-83 06:33:000.4 TjddlswumLCQLOUYSBB0611-81-37 06:33:0047.8 [facility] 2011-10-16 06:33:009.0 KjyjynvwaEUNEXYZPEE7097-08-80 06:33:0040.1[facility] ASOYXXOTVB8632-82-27 06:33:002.8 GrwgbusltMODIXBMKAO0057-97-65 06:33:000.3M InybxwnidHBSVBIARLQ6660-27-35 06:33:000.0 AxbxjorlxFEKSTRFLJ4415-00-25 09:45:0070 SkhftgfdbRJFSJEJBA3901-05-40 09:45:000.9 [facility] 2011-10-10 09:45:0010MH GrlifqtbbAVOLBZGYN1516-52-44 09:45:0023 [facility] DXWADKECF8080-69-63 09:45:008.8 RvgxefpwlTXQSUKKOJ3600-31-19 09:45:98658GR XmxknjothQCRKNUYPS9776-78-48 09:45:004.0 CsrqgkmdbIVRDYNIFY3351-07-39 09:45:00 143 KjpfpkhafQGWSGSIBW1470-18-66 09:45:0016.0 NczjscjooJKXXXBOKOF6771-01-85 09:45:001.3M RtodomxseQWZIUFMDKK0102-39-06 09:45:000.7 [facility] 2011-10-10 09:45:000.2MH GfemaqbynRJRTGEPDYF4535-61-12 09:45:002.1M [facility] PGYHCYYIWA8307-46-37 09:45:000.0 FbgwjkzokXBEXIJCRMD4452-55-18 09:45:000.1M RqrbxajglIPPCNLSLNR1300-43-29 09:45:003.3M YjxygltstEEBHLEERHG3112-28-66 09:45:005.5 AwjnymjssLJWPUBJHCK3620-60-63 09:45:0055.8 [facility] 2011-10-10 09:45:0034.7 HedmrfkuzTVQVRROEGX6720-25-13 09:45:64999OW [facility] VKSFDGDSIK0607-50-08 09:45:0015.7 ZafddpolgOYAWZSSVQW0378-20-89 09:45:0033.7 QyesiivlgSJBMCBPLZO1205-41-60 09:45:0010.1M DphpvkiaqESWPZGFCEA5017-07-63 09:45:0035.6M JnvmmrswkLEQPTSAILC1195-16-82 09:45:003.8 [facility] 2011-10-10 09:45:0091.6M RirzxccixLYNTWBGUYX4986-30-61 09:45:00* Test Item Value Reference Range Interpretation Comments MCH (test code = MCH) 30.9 pg 27.0-31.0 N QnccrsyqgDUFEITSWJO5115-43-45 09:45:0012.0 KpxqymwgwQPFURDXCBU0698-00-42 09:45:003.89MH SoutheastBEDSIDE GLUCOSE LRLALJV5972-67-02 02:12:0095 [facility] [id number] 15:34:00Negative (10/09/2011 10:34:00) AjfzuktuqEWIZXWNTU0210-50-55 15:34:006 SaheqqbnzDHMNBRZJO3320-04-88 15:34:00 131 EjdqkmjdhLTXDKLDTW3477-10-02 15:34:0015.6MH AtqkudhrnAZSSDUESB4649-37-79 15:34:0057 SsvtgaeigGYBMEZRHZ4855-24-67 15:34:0012 SoutheastCHEMISTRY 2011-10-09 15:34:77411EE YmfawcuaeXYHQSSPDP4918-95-67 15:34:67[facility] OLRWWDN9791-79-30 14:01:00Product available 2(10/09/2011 09:01:00) KajiuqtsjYKJLJDMLCY1421-19-61 12:34:008.5 MrlmnuouzKNXXVQTNHQ9544-28-60 12:34:0026.[facility] BslxxguwhDHHNYTYWN2456-77-54 06:35:0011.4 SoutheastCHEMISTRY 2011-10-09 06:35:89481EB LodsxkwcfBHFEFCVRA9245-73-81 06:35:001.0[facility] CDXZCPJIQ2580-56-81 06:35:009[facility] HospitalXyjwichosCOIVKUKGH7537-70-33 06:35:003.4[facility] HospitalBwmqdshloMZTEFPCZQ5087-80-39 06:35:0090[facility] IncurablesHvfuzunqsAQJBPNZUS7343-68-70 06:35:00 8.5 SwelmazbzKZWEQVJOG5033-16-13 06:35:0028 AlmxcbvcfAFERMODKV9680-84-73 06:35:08289MJ OoomomxcxKYNURXZIEQ0084-71-73 06:35:43026ML SoutheastHEMATOLOGY 2011-10-09 06:35:0015.[facility] VswiclqgyRZPTLOZHUT7054-35-11 06:35:009.5[facility] HSSOKFDMZT8570-87-31 06:35:0033.3M WncdomfeeDMDSGYPQQO0991-25-02 06:35:004.[facility] DnqpumbleANPTCLFQTD5656-66-66 06:35:003.11 JhaxeplgkROAIIOEVFY1927-97-04 06:35:0028.[facility] YvrvbbdljGYLBALXJZI5903-44-44 06:35:0090.4[facility] 2011-[facility] 06:35:009.4[facility] CenterNcouuzysyLABGVHNAXA1405-52-63 06:35:00* Test Item Value Reference Range Interpretation Comments MCH (test code = MCH) 30.1 pg 27.0-31.0 N [facility] CenterNuxzdigoeDDUHBNTQCN5784-23-33 06:35:0045.7[facility] CenterTdbmnpoohVSRAYNJSFG0799-30-83 06:35:0041.6M[facility] HospitalTnuyyrorlLEWESKYELI2291-33-27 06:35:001.7[facility] CenterATOLOGY 2011-10-09 06:35:000.5[facility] CenterLveccoldkAVIXYUUNXA5375-18-19 06:35:002.1[facility]2012-05-27 06:35:0010.1MLeonard Morse HospitalTjpgobildLWUJVGDYSG5573-48-23 06:35:001.9[facility] CenterReiqkochkADGSVRKSHR0488-60-87 06:35:000.1[facility] HospitalBdpivkigwSXOTNKQWAF3831-21-07 06:35:000.0[facility] HospitalFqzabqrpvZMRLPHGYBK1142-03-17 06:35:000.4[facility]
[2019-10-09] MEDS ORDERED: METRONIDAZOLE 500MG/NS 100ML 100 ML IV STA (08:11)
[2019-10-09] MEDS ORDERED: SODIUM CHLORIDE 0.9% 1000ML 2,000 ML IV STA (08:11)
[2019-10-09] MEDS ORDERED: ONDANSETRON HCL INJ 2MG/ML 2ML 2 MG/ML VIAL IV STA (08:11)
[2019-10-09] MEDS ORDERED: LEVOFLOXACIN 750MG/D5W 150ML 150 ML IV STA (08:25)
[2019-10-09] MEDS ORDERED: SODIUM CHLORIDE 0.9% 1000ML 1,000 ML IV STA (08:29)
[2019-10-09] MEDS ORDERED: FAMOTIDINE 20 MG/2 ML VIAL IV STA (08:29)
[2019-10-09] MEDS ORDERED: SODIUM CHLORIDE 0.9% 1000ML 2,000 ML ONE (08:30)
[2019-10-09] MEDS ORDERED: ACETAMINOPHEN 1000 MG/100 ML IV STA (08:36)
[2019-10-09 09:04] LABS: BASOPHILS % 0.5 % (0.0-1.0); EOSINOPHILS % 0.4 % (0.0-6.0); HEMATOCRIT 41.3 % (34.2-44.1); HEMOGLOBIN 13.4 g/dL (12.0-16.0); LYMPHOCYTES # (AUTO) 1.2 (1.0-3.2); LYMPHOCYTES % 14.3 % (18.0-39.1); MEAN CORPUSCULAR HEMOGLOBIN 29.4 pg (28-32); MEAN CORPUSCULAR HGB CONC 32.4 g/dL (31-35); MEAN CORPUSCULAR VOLUME 90.6 fL (81-99); MONOCYTES # (AUTO) 1.1 (0.2-0.8); MONOCYTES % 13.2 % (4.4-11.3); NEUTROPHILS # (AUTO) 5.7 (2.1-6.9); NEUTROPHILS % 69.5 % (38.7-80.0); PLATELET COUNT 324 x10e3/uL (140-360); RED BLOOD COUNT 4.56 x10e6/uL (3.6-5.1)
[2019-10-09] MEDS ORDERED: DIPHENHYDRAMINE HCL INJ 50 MG/ML VIAL IV ONE (09:15)
[2019-10-09 09:28] LABS: ALANINE AMINOTRANSFERASE 33 IU/L (0-55); ALBUMIN 3.4 g/dL (3.5-5.0); ALBUMIN/GLOBULIN RATIO 0.9 (0.8-2.0); ALKALINE PHOSPHATASE 144 IU/L (40-150); ANION GAP 19.4 mmol/L (8-16); BLOOD UREA NITROGEN 10 mg/dL (7-26); BUN/CREATININE RATIO 11 (6-25); CALCIUM 9.1 mg/dL (8.4-10.2); CARBON DIOXIDE 19 mmol/L (22-29); CHLORIDE 98 mmol/L (98-107); CREATINE KINASE 3980 IU/L (29-168); CREATININE, SERUM 0.88 mg/dL (0.57-1.11); EST GLOMERULAR FILTRATION RATE > 60 ML/MIN (60-); GLUCOSE 106 mg/dL (74-118); POTASSIUM 3.4 mmol/L (3.5-5.1); SODIUM 133 mmol/L (136-145)
[2019-10-09 09:46] LABS: LIPASE 12 U/L (8-78)
--- NOTE | 2019-10-09 09:56 | Diagnostic Imaging Report ---
EXAMINATION: CHEST SINGLE (PORTABLE) INDICATION: Fever COMPARISON: Chest CT 05/19/2019, chest radiograph 05/19/2019 FINDINGS: LINES/TUBES:EKG leads overlie the chest. LUNGS:The lungs are well-inflated. No focal consolidation or pulmonary edema. PLEURA:No pleural effusion or pneumothorax. MEDIASTINUM:The cardiomediastinal silhouette appears normal in size and shape. BONES/SOFT TISSUES:No acute osseous injury. ABDOMEN:No free air under the diaphragm. IMPRESSION: No focal pneumonia or pulmonary edema. Signed by: Renetta Medina MD on 10/09/2019 9:53 AM
--- NOTE | 2019-10-09 09:59 | Diagnostic Imaging Report ---
CT BRAIN WO HISTORY: Headache COMPARISON: Head CT 03/06/2016 TECHNIQUE: Noncontrast axial scans were obtained from skull base to the vertex. Coronal and sagittal reconstructions obtained from the axial data. One or more of the following dose reduction techniques were used: Automated exposure control, adjustment of the mA and/or kV according to patient size, and/or utilization of iterative reconstruction technique. DISCUSSION: Scalp/Skull: Unremarkable. Brain sulci: Appropriate for patient's age. Ventricles: Normal in size and configuration. No hydrocephalus. Extra-axial spaces: No masses or fluid collections. Parenchyma: No abnormal densities. No mass, hemorrhage, or large vascular territory acute infarct. Dural sinuses: No abnormal densities. Sellar/Suprasellar region: Empty sella. Skull base: Intact. Incidental findings: None. IMPRESSION: 1. No acute intracranial abnormalities. 2. Nonspecific empty sella. Signed by: Dr. Yifan Mensah M.D. on 10/09/2019 9:55 AM
[2019-10-09 11:07] LABS: CLARITY,URINE CLEAR (CLEAR); COLOR,URINE YELLOW (YELLOW); KETONES,URINE 2+ (NEGATIVE); LEUKOCYTE ESTERASE ,URINE NEGATIVE (NEGATIVE); NITRITE,URINE NEGATIVE (NEGATIVE); PROTEIN,URINE DIPSTICK 1+ (NEGATIVE)
[2019-10-09 11:08] LABS: BILIRUBIN,URINE SMALL (NEGATIVE); URINE UROBILINOGEN 0.2 mg/dL (0.2 - 1)
[2019-10-09 11:13] LABS: BACTERIA,URINE MODERATE /HPF
[2019-10-09 11:14] LABS: EPITHELIAL CELLS,URINE MODERATE /LPF
--- NOTE | 2019-10-09 11:23 | Diagnostic Imaging Report ---
EXAM: CT Abdomen and Pelvis WITHOUT intravenous contrast INDICATION: Abdominal pain, diarrhea, nausea COMPARISON: None. TECHNIQUE: Abdomen and pelvis were scanned utilizing a multidetector helical scanner from the lung base to the pubic symphysis without administration of IV contrast. Coronal and sagittal reformations were obtained. IV CONTRAST: None ORAL CONTRAST: Water COMPLICATIONS: None RADIATION DOSE: Total DLP: 820 mGy*cm Dose modulation, iterative reconstruction, and/or weight based adjustment of the mA/kV was utilized to reduce the radiation dose to as low as reasonably achievable. FINDINGS: LOWER THORAX: Normal. HEPATOBILIARY: No focal liver lesion. No biliary ductal dilation. Status post cholecystectomy. SPLEEN: No splenomegaly. PANCREAS: No focal masses or ductal dilatation. ADRENALS: No adrenal nodules. KIDNEYS/URETERS: No hydronephrosis, stones, or solid mass lesions. PELVIC ORGANS/BLADDER: Status post hysterectomy. PERITONEUM / RETROPERITONEUM: No free air or fluid. LYMPH NODES: No lymphadenopathy. VESSELS: Unremarkable. GI TRACT: No abnormal bowel thickening. No bowel obstruction. Normal appendix. BONES AND SOFT TISSUES: Left lower quadrant implanted pain pump. No acute osseous injury. Postoperative findings of posterior decompression and fusion at L4-S1. IMPRESSION: No acute findings in the abdomen or pelvis. Signed by: Renetta Medina MD on 10/09/2019 11:19 AM
--- NOTE | 2019-10-09 11:46 | Emergency Department Note ---
History of Present Illnes History of Present Illness Chief Complaint: ABDOMINAL PAIN History of Present Illness This is a 43 year old female. 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 Offset Required: No Onset (how long ago): day(s) (5) Location: generalized abd pain Quality: sharp Radiation: non-radiation Severity: moderate Onset quality: gradual Duration (how long): day(s) (5) Timing of current episode: constant Progression: worsening Chronicity: new Context: recent illness, recent surgery, recent immobilization, recent travel, trauma/injury, new medications, hx of DVT/PE, non-compliance w/ medications Relieving factors: none Exacerbating factors: movement Associated symptoms: nausea/vomiting Treatments prior to arrival: none Past Medical/Family History Physician Review I have reviewed the patient's past medical and family history. Any updates have been documented here. Past Medical History Recent Fever: Yes Clinical Suspicion of Infectio: Yes New/Unexplained Change in Ment: No Past Medical History: Cancer Other Medical History: cervical cancer stage 4 leukemia Past Surgical History: Cholecysctectomy, Hysterectomy, Hernia Repair Other Surgery: spinal fusion dilaudid pain pump insertion bile duct sphincterectomy scar tissue removal x3 in abd Frank hernia Social History Smoking Cessation: Current every day smoker Alcohol Use: Occasional Any Illegal Drug Use: No TB Exposure/Symptoms: No Physically hurt or threatened: No Other Last Tetanus: UNKNOWN Any Pre-Existing Lines (PICC,: Yes (pain pump implanted) Is patient up to date on immun: Yes Last Flu: UTD Last Pneumovax: none Review of Systems Review of Systems Constitutional: as per HPI EENTM: no symptoms Cardiovascular: no symptoms Respiratory: no symptoms Gastrointestinal: as per HPI Genitourinary: no symptoms Musculoskeletal: no symptoms Neurological: as per HPI, headache Psychological: no symptoms Endocrine: no symptoms Hematological/Lymphatic: no symptoms Review of other systems All other systems reviewed and negative. Physical Exam Related Data Allergies: Coded Allergies: amoxicillin (Verified Allergy, Intermediate, hives, 05/19/19) clavulanic acid (Verified Allergy, Intermediate, hives, 05/19/19) iodine (Verified Allergy, Intermediate, hives, 05/19/19) Triage Vital Signs Vital Signs Date Time Temp Pulse Resp B/P (MAP) Pulse Ox O2 Delivery O2 Flow Rate FiO2 10/09/19 08:03 101.2 147 26 135/97 97 Vital signs reviewed: Yes Physical Exam CONSTITUTIONAL Constitutional: well-developed, well-nourished, obese HENT HENT: normocephalic, atraumatic, oropharynx clear/moist, mucosae dry, nose normal HENT L/R: left ext ear normal, right ext ear normal EYES Eyes: PERRL, conjunctivae normal NECK Neck: ROM normal PULMONARY Pulmonary: effort normal, breath sounds normal CARDIOVASCULAR Cardiovascular: regular rhythm, heart sounds normal, capillary refill normal, tachycardia GASTROINTESTINAL Abdominal: soft, bowel sounds normal, tender (all quadrants), guarding GENITOURINARY Genitourinary: exam deferred SKIN Skin: warm, dry MUSCULOSKELETAL Musculoskeletal: ROM normal NEUROLOGICAL Neurological: alert, oriented x 3, no gross motor or sensory deficits PSYCHOLOGICAL Psychological: mood/affect normal, judgement normal Results Laboratory Result Diagram: 10/09/19 0849 10/09/19 0849 Laboratory Laboratory Tests Test 10/09/19 10:35 10/09/19 08:49 Urine Color Yellow (YELLOW) Urine Clarity Clear (CLEAR) Urine pH 6.5 (5 - 7) Urine Specific [place] 1.020 (1.010-1.025) Urine Protein 1+ (NEGATIVE) Urine Glucose (UA) Negative (NEGATIVE) Urine Ketones 2+ (NEGATIVE) Urine Blood Moderate (NEGATIVE) Urine Nitrite Negative (NEGATIVE) Urine Bilirubin Small (NEGATIVE) Urine Urobilinogen 0.2 mg/dL (0.2 - 1) Urine Leukocyte Esterase Negative (NEGATIVE) Urine RBC 11-20 /HPF (0-5) Urine WBC 6-10 /HPF (0-5) Urine Epithelial Cells Moderate /LPF (NONE) Urine Bacteria Moderate /HPF (NONE) White Blood Count 8.23 x10e3/uL (4.8-10.8) Red Blood Count 4.56 x10e6/uL (3.6-5.1) Hemoglobin 13.4 g/dL (12.0-16.0) Hematocrit 41.3 % (34.2-44.1) Mean Corpuscular Volume 90.6 fL (81-99) Mean Corpuscular Hemoglobin 29.4 pg (28-32) Mean Corpuscular Hemoglobin Concent 32.4 g/dL (31-35) Red Cell Distribution Width 14.0 % (11.7-14.4) Platelet Count 324 x10e3/uL (140-360) Neutrophils (%) (Auto) 69.5 % (38.7-80.0) Lymphocytes (%) (Auto) 14.3 % (18.0-39.1) Monocytes (%) (Auto) 13.2 % (4.4-11.3) Eosinophils (%) (Auto) 0.4 % (0.0-6.0) Basophils (%) (Auto) 0.5 % (0.0-1.0) Neutrophils # (Auto) 5.7 (2.1-6.9) Lymphocytes # (Auto) 1.2 (1.0-3.2) Monocytes # (Auto) 1.1 (0.2-0.8) Eosinophils # (Auto) 0.0 (0.0-0.4) Basophils # (Auto) 0.0 (0.0-0.1) Absolute Immature Granulocyte (auto 0.17 x10e3/uL (0-0.1) Sodium Level 133 mmol/L (136-145) Potassium Level 3.4 mmol/L (3.5-5.1) Chloride Level 98 mmol/L (98-107) Carbon Dioxide Level 19 mmol/L (22-29) Anion Gap 19.4 mmol/L (8-16) Blood Urea Nitrogen 10 mg/dL (7-26) Creatinine 0.88 mg/dL (0.57-1.11) Estimat Glomerular Filtration Rate > 60 ML/MIN (60-) BUN/Creatinine Ratio 11 (6-25) Glucose Level 106 mg/dL (74-118) Lactic Acid Level 1.1 mmol/L (0.5-2.0) Calcium Level 9.1 mg/dL (8.4-10.2) Total Bilirubin 0.4 mg/dL (0.2-1.2) Aspartate Amino Transf (AST/SGOT) 29 IU/L (5-34) Alanine Aminotransferase (ALT/SGPT) 33 IU/L (0-55) Alkaline Phosphatase 144 IU/L (40-150) Creatine Kinase 3980 IU/L (29-168) Creatine Kinase MB 20.00 ng/mL (0-4.3) Troponin I < 0.05 ng/mL (0.0-0.40) Total Protein 7.4 g/dL (6.5-8.1) Albumin 3.4 g/dL (3.5-5.0) Globulin 4.0 g/dL (2.3-3.5) Albumin/Globulin Ratio 0.9 (0.8-2.0) Lipase 12 U/L (8-78) Human Chorionic Gonadotropin, Qual Negative (NEGATIVE) Imaging Imaging results reviewed: Yes (cxr /ct head/ abd/pelvis= neg) Diagnostics Tests Diagnostic test(s) reviewed: Yes (ekg sinus tachycardia/ inverted t waves ) Critical Care Time Subsequent provider I assumed direction of critical care for this patient from another provider of my specialty. Assessment & Plan Reassessment Reassessment time: 12:30 Reassessment pt feels much better Assessment & Plan Final Impression: (1) Sepsis (2) Gastroenteritis (3) Dehydration (4) Hypokalemia (5) Rhabdomyolysis (6) Acute electrocardiogram changes (7) Migraine Assessment & Plan spoke to dr trivedi at 1300hrs and accepts admission of pt Last Vital Signs Date Time Temp Pulse Resp B/P (MAP) Pulse Ox O2 Delivery O2 Flow Rate FiO2 10/09/19 11:12 99.2 102 15 141/77 95 Home Meds Active Scripts Cyclobenzaprine Hcl (FLEXERIL) 5 Mg Tablet, 10 MG PO TID for PAIN, #20 Prov:SIMA BAUTISTA MD 07/25/19 Reported Medications Hydromorphone Hcl (DILAUDID) 2 Mg Tab, 100 MG SC IV infusion pump, cont 07/09/17 Acetaminophen With Codeine (TYLENOL WITH CODEINE #4 TABLET) 1 Each Tablet, 1 TAB PO Q6H 08/24/16 Gabapentin (GABAPENTIN) 300 Mg Capsule, 300 MG PO TID, #60 CAP 08/24/16 Tizanidine Hcl (TIZANIDINE HCL) 4 Mg Capsule, 4 MG PO TID 08/10/16 Temazepam (TEMAZEPAM) 15 Mg Capsule, 20 MG PO HS 08/10/16 Zolpidem Tartrate (AMBIEN) 10 Mg Tablet, 12.5 MG PO HS, TAB 03/09/16 Citalopram Hydrobromide (CELEXA) 40 Mg Tablet, 40 MG PO DAILY 12/01/15 Dicyclomine Hcl (BENTYL) 10 Mg Capsule, 10 MG PO BID, CAP 12/01/15 Diazepam (DIAZEPAM) 10 Mg Tablet, 10 MG PO Q8H 12/01/15 Promethazine Hcl (PROMETHAZINE HCL) 50 Mg Tablet, 50 MG PO Q6HR 12/01/15 Medications in the ED Ondansetron HCl 8 mg NOW STAT IV Last administered on 10/09/19at 10:23; Admin Dose 8 MG; Start 10/09/19 at 08:11; Stop 10/09/19 at 08:37; Status DC Sodium Chloride 2,000 ml @ 0 mls/hr Q0M STAT IV Last administered on 10/09/19at 11:00; Admin Dose 1,000 MLS/HR; Start 10/09/19 at 08:11; Stop 10/09/19 at 08:25; Status DC Metronidazole/ Sodium Chloride 100 ml @ 100 mls/hr ONCE STAT IV Last administered on 10/09/19at 11:00; Admin Dose 100 MLS/HR; Start 10/09/19 at 08:11; Stop 10/09/19 at 09:10; Status DC Sodium Chloride 2,000 ml @ STK-MED ONCE .ROUTE ; Start 10/09/19 at 08:30; S top 10/09/19 at 08:25; Status DC Levofloxacin/ Dextrose 150 ml @ 100 mls/hr NOW STAT IV ; Start 10/09/19 at 08:25; Stop 10/09/19 at 09:54; Status DC Sodium Chloride 1,000 ml @ 2,000 mls/hr Q30M STAT IV ; Start 10/09/19 at 08:29; Stop 10/09/19 at 08:58; Status DC Famotidine 20 mg NOW STAT IV ; Start 10/09/19 at 08:29; Stop 10/09/19 at 10:04; Status DC Acetaminophen 1,000 mg NOW STAT IV Last administered on 10/09/19at 11:01; Admin Dose 1,000 MG; Start 10/09/19 at 08:36; Stop 10/09/19 at 08:40; Status DC Diphenhydramine HCl 50 mg NOW ONCE IV ; Start 10/09/19 at 09:15; Stop 10/09/19 at 10:04; Status DC DARCY CASTILLO October 09, 2019 11:46
[2019-10-09] MEDS ORDERED: KETOROLAC TROMETHAMINE 30 MG/ML VIAL IV PRN (12:00)
[2019-10-09] MEDS ORDERED: KETOROLAC TROMETHAMINE 30 MG/ML VIAL IV STA (12:03)
[2019-10-09] MEDS ORDERED: METHYLPREDNISOLONE SOD SUCC 125 MG/2ML VIAL IV ONE (12:15)
--- OUTSIDE RECORDS SUMMARY | 2019-10-09 12:25 | XMS REPORT | Clinical Summary ---
Author Author ANDRY Krush Organization [facility] Address Unknown Phone Unavailable Care Team Providers Care Coffee Grower Name Role Phone Blair Hunt Unavailable Sharpless [...] Group BLUE CROSS/BLUE SHIELD BCBS ADV xxxxxxxxxxxx [phone] [address] [place] [address] EXCHANGE Advance Directives For more information, please contact: [facility] [address] [place] [address] Date Inactivated Comments Code Status [...]
--- OUTSIDE RECORDS SUMMARY | 2019-10-09 12:25 | XMS REPORT | Clinical Summary ---
Author Author [facility] Organization [facility] Address Unknown Phone Unavailable Care Team Providers Care Truss Maker Name Role Phone Miko Bahena DO PCP [phone] Allergies Comments Active Allergy Reactions Severity [...] ot Implanted Type Area Manufactur er 07/12/2018 [id number] / / [id number] Pump Infsn Synchromed Ii W/ Fltr Neurosurgi Right: Abdome n, [employer] Sut Loop Prgrmbl Rsvr 20ml - bert Lower Quadrant N EUROMODUL [id number] Implants ATION Implanted: Qty: 1 on 02/15/2017 by Asad Ritchie MD at [facility] 12/12/2021 [id number] / / [id number] Passer Cath W/ Rmvbl Hndl And Ppe Neurosurgi Right: Abdom en, [employer] Obtrtr 38cm Strl - [id number] bert Lower Quadrant U SA - Implanted: Qty: 1 on 02/15/2017 by Implants MELINA Asad Larson MD at [facility] [place] 08/29/2020 [id number] / / [id number] Closure Wnd Tiss Rpr Sys - Surgical Right: Abdomen, AN ULEX [id number] Implants; Lower Quadrant TECHNOLOGI Implanted: Qty: 1 on 02/15/2017 by [employer]; [employer] Asad Ritchie MD at [facility] Extenders; Surgical Wires Results Not on fileafter 10/08/2018 Insurance Type Payer Benefit Subscriber ID Effective Phone Address Plan / Dates Group Exchange BCBS EXCHANGE BLUE xxxxxxxxxxxx 2016-P ADVANTAGE resent HMO EXCH [id number] Advance Directives For more information, please contact: [phone] Patient Curtain Hemmer Automatic Explanation Type Date Recorded Advance Directives, 08/24/2016 5:52 AM Living Will and Medical Power of Overhead 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
--- OUTSIDE RECORDS SUMMARY | 2019-10-09 12:28 | XMS REPORT | Continuity of Care Document ---
Author Author [facility] Organization [facility] Address Unknown Phone Unavailable Care Team Providers Care Tool Inspector Name Role Phone [employer] Unavailable Un available Problems Problem Status Onset Date Classification Date Reported Comments Source Urticaria, unspecified 08/05/2016 08/08/2016 [facility] ALLERGIC REACTION Active 08/05/2016 [facility] Unspecified abdominal pain 07/13/2016 07/16/2016 [facility] Pain in unspecified joint 07/13/2016 07/16/2016 [facility] FEVER Active 07/13/2016 [facility] DIVERTICULITIS Active 07/13/2016 [facility] ABD PAIN Active 04/29/2016 [facility] ABDOMINAL PAIN Active 04/29/2016 [facility] INTRACTABOLE ABDOMINAL PAIN Ac tive 04/11/2016 [facility] SIDE PAIN Active 04/11/2016 [facility] Discharge Diagnosis: Abdominal pain 04/06/2016 04/09/[address] [facility] [address] SCAN, DR SENT Active 04/05/2016 [facility] Discharge Diagnosis: Acute pyelonephritis 03/02/2016 03/05/2016 [facility] DOC SEND Active 03/02/2016 [facility] Discharge Diagnosis: Contusion of left u pper arm, initial encounter 03/20/2015 03/23/2015 [facility] ARM INJURY Active 03/20/2015 [facility] Discharge Diagnosis: Transaminitis 09/14/2014 10/03/2014 [facility] Discharge Diagnosis: Abdominal pain in female patient 09/14/2014 10/03/2014 [facility] INTRACTABLE NAUSEA AND VOMITING Active 09/13/2014 [facility] Discharge Diagnosis: Contusion of foot, left 02/09/2014 02/11/2014 [facility] Discharge Diagnosis: Pain in left foot 02/09/2014 02/11/2014 [facility] FOOT PAIN Active 02/09/2014 [facility] VOMITING,NAUSEA Active 12/10/2013 [facility] NAUSEA AND VOMITING Active 12/10/2013 [facility] Discharge Diagnosis: Headache 12/07/2013 12/09/[address] [facility] [address] SENT Active 12/06/2013 [facility] Discharge Diagnosis: Abdominal pain 09/13/2013 09/15/2013 [facility] Discharge Diagnosis: Elevated liver function tests 09/02/2013 09/12/2013 [facility] Diagnosis: Nausea and vomiting 09/02/2013 09/12/2013 [facility] Diagnosis: abdominal pain/elevated lft's 09/01/2013 09/03/2013 [facility] VOMITING Active 09/01/2013 [facility] INTRACTABLE VOMITING, ELEVATED LIVER ENZ Active 09/01/2013 [facility] VOMITING/ABD PAIN/SWELLING ABD Active 08/31/2013 [facility] BLOATING/GASTRIC PAIN/NAUSEA/PIPER/VOMITING Active 08/29/2013 [facility] SOB Active 0 06/05/2013 [facility] ASTHMATIC BRONCHITIS Active 06/05/2013 [facility] CHEST AND ARM COMPLAINTS Active 02/11/2013 [facility] OVERDOSE Active 10/19/2012 [facility] SEIZURES Active 09/27/2012 [facility] RENAL COLIC, ABDOMINAL PAIN, DEHYDRATION Active 08/06/2012 [facility] SEIZURE Active 07/17/2012 [facility] URINARY RETENTION Active 07/09/2012 [facility] BACK PAIN Active 07/07/2012 [facility] 789.00 - ABDMNAL PAIN UN Active 06/29/2012 [facility] Cade FALL Active 05/31/2012 [facility] 719.45 - JOINT PAIN-PELV Active 03/06/2012 [facility]HA[facility] ALLERGIC REATION Active 01/24/2012 [facility] GI BLEED Active 12/31/2011 [facility] HEADACHE Active 12/31/2011 [facility] RECTAL BLEED, NO BOWEL MOVEMENT X 5DAYS Active 12/30/2011 [facility] SYNCOPE Active 10/14/2011 [facility] LOWER BACK PAIN Active 10/08/2011 [facility] SYNCOPE, ANEMIA, HYPERNATREMIA Active 10/08/2011 [facility] Abdominal pain Active Problem 02/14/2013 [facility] PID Shaun,[facility] Anxiety Active Problem 02/14/2013 [facility], MICHAEL Dunn, [facility] Cancer of cervix Active Problem 02/14/2013 [facility] PID Shaun,[facility] Depression Active Problem 02/14/2013 [facility], MICHAEL Dunn, [facility] Female genital organ symptoms Active Problem 07/2012 2CANCELLED [facility], MICHAEL Dunn,[facility] Gastric bypass operation Active Problem 02/14/2013 [facility], Ruma Dunn,[facility] Laparoscopic procedure Active Problem 02/14/2013 [facility], O PID Shaun,[facility] Lumbar puncture headache Active Problem 10/18/2011 [facility] Lysis of adhesions Active Problem 02/14/2013 [facility], O PID Shaun,[facility] Migraine Active Problem 02/14/2013 [facility], MICHAEL Dunn, [facility] Sinusitis Active Problem 02/14/2013 [facility], MICHAEL Dunn, [facility] Ulcer Active Problem 02/14/2013 [facility], MICHAEL Dunn, [facility] Lumbar puncture headache Active Problem 02/14/2013 [facility], O PID Shaun,[facility] Kidney infection Resolved Problem 02/14/2013 [facility] Malabsorption Resolved Problem 02/14/2013 [facility], S [facility] Cancer Resolved Problem 02/14/2013 1cervical [facility] Abdominal pain (finding) Active Problem 08/08/2016 [facility] Anxiety (finding) Active Problem 08/08/2016 [facility] bipolar(Confirmed) Resolved Problem 02/11/2014 [facility] Malignant neoplasm, primary (morphologic abnormality) Resolved Problem 03/05/2016 cervical MICHAEL Lucas,[facility] Malignant tumor of cervix (disorder) Active Problem [facility] [place] [facility] Depressive disorder (disorder) Active Problem [facility] Female genital organ symptoms (finding) Active Problem 08/08/2016 [facility] Esophagogastrostomy, antesternal or ante thoracic (procedure) Active Prob [facility] 08/08/2016 [facility] high cholesterol(Confirmed) Re solved Problem [facility] [place] [facility] hx cerv cancer(Confirmed) Reso lved Problem [facility] [place] [facility] hx gastric bypass(Confirmed) R esolved Problem [facility] [place] [facility] hypoglycemia(Confirmed) Resolv ed Problem [facility] Infectious disorder of kidney (disorder) Resolved Problem 08/08/2016 MICHAEL Cade,[facility] Laparoscopic-assisted procedure (procedure) Active Problem 08/08/2016 MICHAEL Cade,[facility] Lumbar Fusion L3 S1(Confirmed) Resolved Problem [facility] [place] lumbar fusion surgery(Confirmed) Resolved Problem [facility] [facility] Headache following lumbar puncture (disorder) Active Problem 08/08/2016 MICHAEL Cade,[facility] Lysis of adhesions (procedure) Active Problem [facility] [place] [facility] Malabsorption syndrome (disorder) Resolved Problem [facility] Migraine (disorder) Active Problem 08/08/2016 [facility] [place] [facility] Sinusitis (disorder) Active Problem 08/08/2016 [facility] [place] [facility] Ulcer (morphologic abnormality) Active Problem [facility] [place] [facility] Biopsy of liver (procedure) Ac tive Problem [facility] [place] [facility] bipolar Resolved Problem 06/12/2013 [facility] high cholesterol Resolved Problem 06/12/2013 [facility] hx cerv cancer Resolved Problem 06/12/2013 [facility] hx gastric bypass Resolved Problem 06/12/2013 [facility] hypoglycemia Resolved Problem 06/12/2013 [facility] Lumbar Fusion L3 S1 Resolved Problem 06/12/2013 [facility] lumbar fusion surgery Resolved Problem 06/12/2013 [facility] Endometriosis (disorder) Active Problem 08/08/2016 [facility] Polycystic ovaries (disorder) Resolved Problem [facility] Carcinoma of cervix (disorder) Resolved Problem [facility] Crohn's disease (disorder) Res olved Problem [facility] History of bypass of stomach (situation) Resolved Problem 08/08/2016 [facility] Hypoglycemia (disorder) Resolv ed Problem [facility] Systemic lupus erythematosus (disorder) Resolved Problem 08/08/2016 [facility] Mechanical complication of internal orth opedic device, implant AND/OR graft (disorder) Resolved Problem 08/08/2016 [facility] SYNCOPE AND COLLAPSE Active [facility] ANEMIA NOS [facility] RETENTION OF URINE NOS [facility] ABDMNAL PAIN UNSPCF SITE Active [facility] BRONCHITIS NOS Active [facility] VOMITING ALONE Active [facility] NAUSEA WITH VOMITING Active [facility] UNSPECIFIED ABDOMINAL PAIN Act jose maria [facility] Medications Medication Details Route Status Patient Instructions Ordering Provider Order Date Source Phenergan 25 mg, Route: IM, ON CE, Dosing Weight 68.636, kg, Priority: STAT, Start date: 08/05/16 5:41:00 CDT, Stop date: 08/05/16 5:41:00 CDT Inactive 08/05/2016 [facility] 0.3 ML Epinephrine 1 MG/ML Prefilled Syringe 0.3 mg, IM, PRN, PRN allergic reaction or asthma, inject into leg for severe allergic reaction, # 1 kit, 0 Refill(s) Active 08/05/2016 [facility] Prednisone 50 MG Oral Tablet 5 0 mg = 1 tab, PO, Daily, X 5 day, # 5 tab, 0 Refill(s) Active 08/05/2016 [facility] Famotidine 20 MG Oral Tablet 2 0 mg = 1 tab, PO, BID, # 28 tab, 0 Refill(s) Active 08/05/2016 [facility] Hydroxyzine Hydrochloride 25 MG Oral Tablet 25 mg = 1 tab, PO, QID, X 14 day, # 56 tab, 0 Refill(s) Active 08/05/2016 [facility] Diphenhydramine 50 mg, Route: IM, ONCE, Dosing Weight 68.636, kg, Priority: STAT, Start date: 08/05/16 3:06:00 CDT, Stop date: 08/05/16 3:06:00 CDT Inactive 08/05/2016 [facility] Famotidine 20 mg, Route: PO, O NCE, Dosing Weight 68.636, kg, Priority: STAT, Start date: 08/05/16 3:06:00 CDT, Stop date: 08/05/16 3:06:00 CDT Inactive 08/05/2016 [facility] methylPREDNISolone SODium SUCCinate 125 mg, Route: IM, ONCE, Dosing Weight 68.636, kg, Priority: STAT, Start date: 08/05/16 3:06:00 CDT, Stop date: 08/05/16 3:06:00 CDT Inactive 08/05/2016 [facility] Phenergan Notes: Do not give I V push. (Same as: Phenergan) No Longer Active 07/13/2016 [facility] Phenergan 12.5 mg, Route: IVPB , ONCE, Dosing Weight 65, kg, PRN Nausea & Vomiting, Start date: 07/13/16 11:16:00 [employer] Inactive 07/13/2016 [facility] Fentanyl 50 microgram, Route: IV, ONCE, Dosing Weight 65, kg, Start date: 07/13/16 11:16:00 [employer], Stop date: 07/13/16 11:16:00 [employer] Inactive 07/13/2016 [facility] Acetaminophen 325 MG / Hydrocodone Faby trate 5 MG Oral Tablet [[place] 5/325] 1 tab, PO, Q4H, PRN for pain, X 5 day, # 24 tab, 0 Refill(s) Active 07/13/2016 [facility] Cipro 400 mg, Route: IVPB, ONC E, Dosing Weight 65, kg, Priority: STAT, Start date: 07/13/16 10:18:00 [employer], Stop date: 07/13/16 10:18:00 [employer] Inactive 07/13/2016 [facility] Flagyl 500 mg, Route: IVPB, ON CE, Dosing Weight 65, kg, Priority: STAT, Start date: 07/13/16 10:18:00 [employer], Stop date: 07/13/16 10:18:00 [employer] Inactive 07/13/2016 [facility] Acetaminophen 325 MG / Hydrocodone Faby trate 5 MG Oral Tablet [[place] 5/325] 1 tab, Route: PO, Drug Form: TAB, Dosing Weight 65, kg, ONCE, STAT, Start date: 07/13/16 9:51:00 [employer], Stop date: 07/13/16 9:51:00 [employer] Inactive 07/13/2016 [facility] Fentanyl 50 microgram, Route: IVP, ONCE, Dosing Weight 65, kg, Priority: STAT, Start date: 07/13/16 7:59:00 [employer], Stop date: 07/13/16 7:59:00 [employer] Inactive 07/13/2016 [facility] Fentanyl Notes: (Same as: Subl imaze) Preservative free. Inactive 07/13/2016 [facility] Phenergan Notes: Do not give I V push. (Same as: Phenergan) Inactive 07/13/2016 [facility] Zofran 4 mg, Route: IVP, Drug form: INJ, ONCE, Dosing Weight 65, kg, Priority: STAT, Start date: 07/13/16 5:28:00 [employer], Stop date: 07/13/16 5:28:00 [employer]PER[employer] Inactive 07/13/2016 [facility] Morphine 4 mg, Route: IVP, ONC E, Dosing Weight 65, kg, Priority: STAT, Start date: 07/13/16 5:28:00 [employer], Stop date: 07/13/16 5:28:00 [employer] Inactive 07/13/2016 [facility] Sodium Chloride 0.154 MEQ/ML Injectable Solution 1,000 mL, 1,000 ml/hr, Infuse Over: 1 hr, Route: IV, 1,000, Drug form: INJ, ONCE, Priority: STAT, Dosing Weight 65 kg, Start date: 07/13/16 5:28:00 [employer], Duration: 1 doses or times, Stop date: 07/13/16 5:28:00 [employer] Inactive 07/13/2016 [facility] gabapentin 300 MG Oral Capsule 300 mg = 1 cap, PO, TID, # 90 cap, 0 Refill(s) Active 07/13/2016 [facility] mesalamine 500 MG Extended Release Capsule [Pentasa] 500 mg = 1 cap, PO, QID, # 120 cap, 0 Refill(s) Active 07/13/2016 [facility] Acetaminophen 300 MG / Codeine Phosphate 30 MG Oral Tablet [Tylenol with Codeine #3] 1 - 2 tab, PO, Q4H, PRN Pain, X 2 week, # 30 tab, 2 Refill(s) Active 05/10/2016 [facility] Enoxaparin Notes: (Same as: Lo venox) No Longer Active 05/10/2016 [facility] Hydromorphone 0.5 mg, 0.5 mL, Route: IVP, Drug form: INJ, Q5Min, Dosing Weight 68.835, kg, PRN Pain Score 7-10, Start date: 05/09/16 10:00:00 [employer], Duration: 4 doses or times, Stop date: Limited # of times Inactive 05/09/2016 [facility] Morphine Notes: (Same as:MORPh ine Sulfate) Inactive 05/09/2016 [facility] Naloxone Notes: Same as Narcan Inactive 05/09/2016 [facility] Flumazenil Notes: (Same as: Ro mazicon) Inactive 05/09/2016 [facility] Fentanyl Notes: (Same as: Subl imaze) Preservative free. Inactive 05/09/2016 [facility] Diphenhydramine Notes: (Same a s: Benadryl) Inactive 05/09/2016 [facility] Labetalol Notes: (Same as: Pavel modyne, Trandate) Push over 2 minutes Give bolus over 2-3 minutes. Inactive 05/09/2016 [facility] Acetaminophen Notes: Infuse ov er 15 minutes Do not exceed 4gm/day of acetaminophen MEDICATION WASTE Product Size: 1000 mg Product Wasted: ___ mg Inactive 05/09/2016 [facility] Metoprolol Notes: (Same as: Lo pressor) Push over 2 minutes Inactive 05/09/2016 [facility] Ketorolac 4 days MEDICA TION WASTE Product Size: 30 mg Product Wasted: ___ mg Inactive 05/09/2016 [facility] Ondansetron Notes: (Same as: Manoj parnell) MEDICATION WASTE Product Size: 4 mg Product Wasted: ___ mg Inactive 05/09/2016 [facility] Meperidine Notes: (Same As: De merol) Inactive 05/09/2016 [facility] Hydralazine Notes: (Same as: A presoline) Push over 5 minutes Inactive 05/09/2016 [facility] ondansetron (ANES) Route: IV, Drug form: INJ, ONCE, Stop date: 05/09/16 9:34:00 [employer] Inactive 05/09/2016 [facility] sugammadex (ANES) Route: IV, D rug form: SOLN, ONCE, Stop date: 05/09/16 9:34:00 [employer]PER[employer] Inactive 05/09/2016 [facility] phenylephrine (ANES) Route: IV , Drug form: INJ, ONCE, Stop date: 05/09/16 9:34:00 [employer] Inactive 05/09/2016 [facility] famotidine (ANES) Route: IV, D rug form: INJ, ONCE, Stop date: 05/09/16 9:22:00 [employer] Inactive 05/09/2016 [facility] scopolamine (ANES) Route: Galvez sdermal, Drug form: ERFILM, ONCE, Stop date: 05/09/16 9:22:00 [employer]PER[employer] Inactive 05/09/2016 [facility] dexamethasone (ANES) Route: IV , Drug form: INJ, ONCE, Stop date: 05/09/16 9:12:00 [employer]PER[employer] Inactive 05/09/2016 [facility] rocuronium (ANES) Route: IV, D rug form: INJ, ONCE, Stop date: 05/09/16 9:12:00 [employer] Inactive 05/09/2016 [facility] propofol (ANES) Route: IV, David g form: INJ, ONCE, Stop date: 05/09/16 9:12:00 [employer] Inactive 05/09/2016 [facility] fentaNYL (ANES) Route: IV, David g form: INJ, ONCE, Stop date: 05/09/16 9:12:00 [employer]PER[employer] Inactive 05/09/2016 [facility] lidocaine (ANES) Route: IV, Dr ug form: INJ, ONCE, Stop date: 05/09/16 9:12:00 [employer]PER[employer] Inactive 05/09/2016 [facility] midazolam (ANES) Route: IV, Dr ug form: SOLN, ONCE, Stop date: 05/09/16 9:07:00 [employer] Inactive 05/09/2016 [facility] ceFAZolin (ANES) (ANES) Route: IV, Drug form: INJ, Start date: 05/09/16 8:22:00 [employer]PER[employer], Stop date: 05/09/16 9:22:00 [employer]PER[employer]OR [employer] Inactive 05/09/2016 [facility] LR 1000 mL INJ (ANES) Route: I V, Total Volume: 1,000, Start date: 05/09/16 8:21:00 [employer]PER[employer], Stop date: 05/09/16 9:21:00 [employer]PER[employer] Inactive 05/09/2016 [facility] D5W 1,000 mL 1,000 mL, Rate: 4 0 ml/hr, Infuse over: 25 hr, Route: IV, Dosing Weight 68.835 kg, Total Volume: 1,000, Start date: 05/08/16 10:53:00 [employer], Duration: 30 day, Stop date: 06/07/16 10:52:00 [employer] No Longer Active 05/08/2016 [facility] Relistor Notes: Same as: Relis tor Restricted to Palliative Care No Longer Active 05/07/2016 [facility] Miralax Notes: Dissolve in 8 o z of water or juice. 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 [employer] Inactive 05/06/2016 [facility] Hydromorphone 1 mg, 1 mL, Rout e: IV, Drug form: INJ, Q2H, Dosing Weight 66.364, kg, PRN Pain Score 4-6, Start date: 05/04/16 14:30:00 [employer], Duration: 30 day, Stop date: 06/03/16 14:29:00 [employer]PER[employer] No Longer Active 05/04/2016 [facility] Mesalamine (Pentasa) 500 mg capsule Mesalamine (Pentasa) 500 mg capsule, 1,000 mg, 2 cap, Drug form: MISC, Route: PO, TID, 05/04/16 13:00:00 [employer], Duration: 30 day, Stop date: 06/03/16 9:00:00 [employer]PER[employer] No Longer Active 05/04/2016 [facility] Propranolol Notes: Give with f ood. (Same as: Inderal) No Longer Active 05/03/2016 [facility] Citrate of Magnesia Notes: (Sa me as: Citrate of Magnesia) Concentration: 1.745 gm / 30 mL Inactive 05/01/2016 [facility] zolpidem Notes: (Same As: Ambi en) No Longer Active 05/01/2016 [facility] Mirtazapine Notes: (Same as:Re kenna) No Longer Active 05/01/2016 [facility] SENOKOT-S Notes: (Same as Gerri ruggierot-S) Equiv. to Marlene- Colace. No Longer Active 05/01/2016 [facility] pt own buprenorphine (Belbuca) pt own buprenorphine (Belbuca), 150 microgram, Drug form: MISC, Route: BUC, TID, PRN Pain Score 4-6, 04/30/16 20:11:00 [employer], Duration: 30 day, Stop date: 05/30/16 20:10:00 [employer]PERVISOR [employer] No Longer Active 05/01/2016 [facility] Propranolol Notes: Take with f ood. Do not crush or chew. (Same as: Inderal LA) N o Longer Active 04/30/2016 [facility] gabapentin 100 MG Oral Capsule Notes: (Same as: Neurontin) No Longer Active 04/30/2016 [facility] Diazepam Notes: (Same as: Sanchez um) No Longer Active 04/30/2016 [facility] Atropine 0.5 mg, 5 mL, Route: IVP, Drug form: INJ, ONCE, Dosing Weight 66.364, kg, PRN Bradycardia, Start date: 04/30/16 14:50:00 [employer]PER[employer] No Longer Active 04/30/2016 [facility] Nitroglycerin 0.4 MG Sublingual Tablet Notes: (Same as:Nitroquick, Nitrostat) "Do Not Crush" Sublingual tablet No Longer Active 04/30/2016 [facility] Chlordiazepoxide Hydrochloride 5 MG / Cl idinium bromide 2.5 MG Oral Capsule Notes: (Same As: Librax) No Longer Active 04/30/2016 [facility] Citrate of Magnesia Notes: (Sa me as: Citrate of Magnesia) Concentration: 1.745 gm / 30 mL Inactive 04/30/2016 [facility] Macrobid Notes: Not recommende d for patients with CrCl<50 ml/min (Same as:Macrobid) With food. No Longer Active 04/30/2016 [facility] Multivitamins with Folic Acid 0 .8 mg oral tablet 1 tab, Route: PO, Drug Form: TAB, Dosing Weight 66.364, kg, Daily, Start date: 04/30/16 9:00:00 [employer], Duration: 30 day, Stop date: 05/29/16 9:00:00 [employer]PER[employer] No Longer Active 04/30/2016 [facility] Pentasa 500 mg, Route: PO, TID , Dosing Weight 66.364, kg, Start date: 04/30/16 9:00:00 [employer]PER[employer], Duration: 30 day, Stop date: 05/29/16 17:00:00 [employer]PER[employer]OR [employer] Inactive 04/30/2016 [facility] Folic Acid Notes: (Same as: Fo lvite) No Longer Active 04/30/2016 [facility] Fentanyl 1 patch, Route: TOP, Drug form: ERFILM, Q72H, Dosing Weight 66.364, kg, Start date: 04/30/16 9:00:00 [employer], Duration: 30 day, Stop date: 05/27/16 9:00:00 SUPERVISOR [employer] No Longer Active 04/30/2016 [facility] Diazepam 10 mg, Route: PO, David g form: TAB, TID, Dosing Weight 66.364, kg, Start date: 04/30/16 9:00:00 [employer]PER[employer], Duration: 30 day, Stop date: 05/29/16 17:00:00 SUPERVISOR [employer] Inactive 04/30/2016 [facility] Citalopram 40 mg, 4 tab, Route : PO, Drug form: TAB, Daily, Dosing Weight 66.364, kg, Start date: 04/30/16 9:00:00 [employer], Duration: 30 day, Stop date: 05/29/16 9:00:00 SUPERVISOR [employer] No Longer Active 04/30/2016 [facility] Please bring Pt's Own Buprenorphine to p harmacy for label Please bring Pt's Own Buprenorphine to p harmacy for label, Reminder, Drug form: MISC, Route: MISC, Q12H, 04/30/16 9:00:00 [employer], Duration: 30 day, Stop date: 05/29/16 21:00:00 [employer]PER[employer]OR [employer] Inactive 04/30/2016 [facility] XIFAXAN Notes: Same as: Xifaxan No Longer Active 04/30/2016 [facility] pantoprazole Notes: Tablet lolis uld not be chewed or crushed. (Same as: Protonix) N o Longer Active 04/30/2016 [facility] Prednisone 1 MG Oral Tablet No kwabena: (Same as: PredniSONE) Take with food. No Longer Active 04/30/2016 [facility] Ondansetron Notes: (Same as: Z ofran) No Longer Active 04/30/2016 [facility] Temazepam Notes: (Same As: Res toril) No Longer Active 04/30/2016 [facility] 72 HR Scopolamine 0.0139 MG/HR Transdermal Patch Notes: Change patch every 72 hours (Same as: Transderm-Scop) No Longer Active 04/30/2016 [facility] Dicyclomine Notes: (Same as: B entyl) No Longer Active 04/30/2016 [facility] Buprenorphine 150 microgram, R oute: BUC, Drug form: FILM, TID, Dosing Weight 66.364, kg, PRN Pain Score 1-3, Start date: 04/30/16 8:27:00 [employer], Duration: 30 day, Stop date: 05/30/16 8:26:00 [employer]PER[employer]OR [employer] Inactive 04/30/2016 [facility] Promethazine Notes: (Same as: Phenergan) No Longer Active 04/30/2016 [facility] D5NS 1,000 mL 1,000 mL, Rate: 100 ml/hr, Infuse over: 10 hr, Route: IV, Dosing Weight 66.364 kg, Total Volume: 1,000, Start date: 04/30/16 7:08:00 [employer], Duration: 30 day, Stop date: 05/30/16 7:07:00 [employer]PERVISOR [employer] No Longer Active 04/30/2016 [facility] Hydromorphone 1.25 mg, 1.25 mL , Route: IV, Drug form: INJ, Q4H, Dosing Weight 66.364, kg, PRN Pain Score 6-10, Start date: 04/30/16 7:07:00 [employer]PER[employer], Stop date: 05/30/16 7:06:00 SUPERVISOR [employer] No Longer Active 04/30/2016 [facility] nitrofurantoin 100 mg, PO, BID , # 14 cap, 0 Refill(s) No Longer Active 04/30/2016 [facility] Pentasa 500 mg, PO, TID, 0 Ref ill(s) Inactive 04/30/2016 [facility] SENOKOT-S 2 tab, PO, Bedtime, 0 Refill(s) Active 04/30/2016 [facility] Classic 1 tab, PO, Da osiris, 0 Refill(s) Active 04/30/2016 [facility] diazepam 10 mg oral tablet 10 mg = 1 tab, PO, TID, 0 Refill(s) Active 04/30/2016 [facility] rifaximin 550 MG Oral Tablet [XIFAXAN] 550 mg = 1 tab, PO, BID, 0 Refill(s) Active 04/30/2016 [facility] ondansetron 8 mg oral tablet 8 mg = 1 tab, PO, TID, 0 Refill(s) Active 04/30/2016 [facility] mirtazapine 7.5 mg oral tablet 7.5 mg = 1 tab, PO, Bedtime, 0 Refill(s) Active 04/30/2016 [facility] Sodium Chloride 0.154 MEQ/ML Injectable Solution 1,000 mL, Rate: 125 ml/hr, Infuse over: 8 hr, Route: IV, Dosing Weight 65.455 kg, Total Volume: 1,000, Start date: 04/30/16 5:55:00 [employer], Duration: 30 day, Stop date: 05/30/16 5:54:00 [employer] Inactive 04/30/2016 [facility] Saline Flush 0.9% Notes: (Same as: BD Posiflush) No Longer Active 04/30/2016 [facility] Acetaminophen Notes: Do not ex ceed 4 gm/day. (Same as: Tylenol) No Longer Active 04/30/2016 [facility] Ondansetron Notes: (Same as: Manoj parnell) MEDICATION WASTE Product Size: 4 mg Product Wasted: ___ mg No Longer Active 04/30/2016 [facility] Morphine Notes: (Same as:MORPh ine Sulfate) Inactive 04/30/2016 [facility] Morphine 4 mg, Route: IVP, ONC E, Dosing Weight 65.455, kg, Priority: STAT, Start date: 04/30/16 5:01:00 [employer], Stop date: 04/30/16 5:01:00 [employer] Inactive 04/30/2016 [facility] Ondansetron 4 mg, Route: IVP, Drug form: INJ, ONCE, Dosing Weight 65.455, kg, Priority: STAT, Start date: 04/30/16 5:01:00 [employer], Stop date: 04/30/16 5:01:00 [employer] Inactive 04/30/2016 [facility] Hydromorphone 1 mg, Route: IVP , ONCE, Dosing Weight 65.455, kg, Priority: STAT, Start date: 04/30/16 0:06:00 [employer], Stop date: 04/30/16 0:06:00 [employer] Inactive 04/30/2016 [facility] Sodium Chloride 0.154 MEQ/ML Injectable Solution 1,000 mL, 2,000 ml/hr, Infuse Over: 30 minutes, Route: IV, 1,000, Drug form: INJ, ONCE, Priority: STAT, Dosing Weight 65.455 kg, Start date: 04/29/16 19:47:00 [employer], Duration: 1 doses or times, Stop date: 04/29/16 19:47:00 [employer] Inactive 04/30/2016 [facility] Ondansetron Notes: (Same as: Manoj parnell) MEDICATION WASTE Product Size: 4 mg Product Wasted: ___ mg Inactive 04/30/2016 [facility] Protonix Notes: Tablet should not be chewed or crushed. (Same as: Protonix) No Longer Active 04/13/2016 [facility] Pentasa 1,000 mg, 4 cap, Route : PO, Drug form: ERCAP, QID, Dosing Weight 64.091, kg, Start date: 04/12/16 17:00:00 [employer], Duration: 30 day, Stop date: 05/12/16 13:00:00 [employer] Inactive 04/12/2016 [facility] fentaNYL 25 mcg/hr transdermal film, extended release 1 patch, TOP, Q72H, 0 Refill(s) Active 04/12/2016 [facility] tizanidine 4 mg oral tablet 4 mg, PO, BID, 0 Refill(s) Active 04/12/2016 [facility] propranolol 80 mg oral capsule, extended release 80 mg = 1 cap, PO, Daily, # 30 cap, 0 Refill(s) Active 04/12/2016 [facility] promethazine 50 mg oral tablet 50 mg = 1 tab, PO, Q6H, PRN Nausea & Vomiting, # 40 tab, 0 Refill(s) Active 04/12/2016 [facility] citalopram 40 mg oral tablet 4 0 mg = 1 tab, PO, Daily, # 30 tab, 0 Refill(s) Active 04/12/2016 [facility] Folic Acid 2 mg, PO, Daily, 0 Refill(s) Active 04/12/2016 [facility] dicyclomine 10 mg oral capsule 20 mg = 2 cap, PO, TID, PRN Spasm, 0 Refill(s) Active 04/12/2016 [facility] predniSONE 10 mg oral tablet S ee Special Instructions, PO, Daily, 12 day regimen: 2 weeks - 30 mg (3 tabs) daily 2 weeks - 20 mg (2 tabs) daily 2 weeks- 1.5tabs daily 2 weeks - 10 mg (1 tab) daily 2 weeks - 1/2 tab daily, # 24 tab, 0 Refill(s) Active 04/12/2016 [facility] temazepam 30 mg oral capsule 3 0 mg = 1 cap, PO, Bedtime, PRN Sleep, # 14 cap, 0 Refill(s) Active 04/12/2016 [facility] gabapentin 100 MG Oral Capsule 100 mg = 1 cap, PO, TID, # 90 cap, 1 Refill(s) Active 04/12/2016 [facility] pantoprazole 40 mg oral enteric coated tablet 40 mg = 1 tab, PO, BID, 0 Refill(s) Active 04/12/2016 [facility] Vitamin B 12 1,000 microgram, IM, q 2 weeks, 0 Refill(s) Active 04/12/2016 [facility] 72 HR Scopolamine 0.0139 MG/HR Transdermal Patch 1.5 mg = 1 patch, TOP, Q72H, PRN Other-See Comments, # 4 ea, 0 Refill(s) Active 04/12/2016 [facility] mesalamine 500 MG Extended Release Capsule [Pentasa] 1,000 mg = 2 cap, PO, TID, # 120 cap, 0 Refill(s) Active 04/12/2016 [facility] Buprenorphine 0.15 MG Buccal Film [Belbuca] 150 microgram = 1 ea, BUC, TID, PRN Pain Score 1-3, 0 Refill(s) Active 04/12/2016 [facility] diazepam 10 mg oral tablet 10 mg = 1 tab, PO, TID, 0 Refill(s) Active 04/12/2016 [facility] zolpidem 12.5 mg oral tablet, extended release 12.5 mg = 1 tab, PO, Bedtime, PRN for sleep, 0 Refill(s) Active 04/12/2016 [facility] Chlordiazepoxide Hydrochloride 5 MG / Cl idinium bromide 2.5 MG Oral Capsule 2 cap, PO, TID-Before Meals, 0 Refill(s) Active 04/12/2016 [facility] Dilaudid 0.5 mg, 0.5 mL, Route : IV, Drug form: INJ, Q4H, Dosing Weight 64.091, kg, PRN Pain Score 6-10, Priority: Routine, Start date: 04/12/16 5:12:00 [employer], Duration: 30 day, Stop date: 05/12/16 5:11:00 [employer] Inactive 04/12/2016 [facility] Acetaminophen Notes: Do not ex ceed 4 gm/day. (Same as: Tylenol) Inactive 04/12/2016 [facility] Saline Flush 0.9% Notes: (Same as: BD Posiflush) Inactive 04/12/2016 [facility] D5W 1/2NS 1,000 mL 1,000 mL, R ate: 125 ml/hr, Infuse over: 8 hr, Route: IV, Dosing Weight 64.091 kg, Total Volume: 1,000, Start date: 04/12/16 5:12:00 [employer], Duration: 30 day, Stop date: 05/12/16 5:11:00 [employer] Inactive 04/12/2016 [facility] D5W 1/2NS 1,000 mL 1,000 mL, R ate: 75 ml/hr, Infuse over: 13.3 hr, Route: IV, Dosing Weight 64.091 kg, Total Volume: 1,000, Start date: 04/12/16 5:01:00 [employer], Duration: 30 day, Stop date: 05/12/16 5:00:00 [employer] Inactive 04/12/2016 [facility] Dilaudid 0.5 mg, Route: IVP, O NCE, Dosing Weight 64.091, kg, Priority: STAT, Start date: 04/12/16 5:00:00 [employer], Stop date: 04/12/16 5:00:00 [employer] Inactive 04/12/2016 [facility] Dilaudid 0.5 mg, 0.5 mL, Route : IVP, Drug form: INJ, ONCE, Dosing Weight 64.091, kg, Priority: STAT, Start date: 04/12/16 0:24:00 [employer], Stop date: 04/12/16 0:24:00 [employer] Inactive 04/12/2016 [facility] Phenergan Notes: Do not give I V push. (Same as: Phenergan) Inactive 04/12/2016 [facility] Saline Flush 0.9% Notes: (Same as: BD Posiflush) No Longer Active 04/12/2016 [facility] Acetaminophen 325 MG / Hydrocodone Faby trate 5 MG Oral Tablet [[place] 5/325] 100.4 F, X 5 day, # 16 tab, 0 Refill(s) Active 04/06/2016 [facility] Dilaudid 1 mg, Route: IV, ONCE , Dosing Weight 64.091, kg, Start date: 04/06/16 2:07:00 [employer], Stop date: 04/06/16 2:07:00 [employer] Inactive 04/06/2016 [facility] Promethazine Notes: Do not giv e IV push. (Same as: Phenergan) Inactive 04/06/2016 [facility] Dilaudid 1 mg, Route: IV, ONCE , Dosing Weight 64.091, kg, Start date: 04/05/16 21:58:00 [employer], Stop date: 04/05/16 21:58:00 [employer] Inactive 04/06/2016 [facility] Ondansetron Notes: (Same as: Manoj parnell ODT) Inactive 04/06/2016 [facility] sodium chloride 0.9% 1000 ml INJ 1,000 m L + folic acid 1 mg + Vitamin B1 500 mg + multivitamin 10 m 1,000 mL, Rate: 100 ml/hr, Infuse over: 10.2 hr, Route: IV, Dosing Weight 64.091 kg, Total Volume: 1,015.2, Start date: 04/05/16 18:54:00 [employer], Duration: 1 doses or times, Stop date: 04/06/16 5:05:00 [employer] Inactive 04/06/2016 [facility] Sodium Chloride 0.154 MEQ/ML Injectable Solution 1,000 mL, Rate: 100 ml/hr, Infuse over: 10 hr, Route: IV, Dosing Weight 64.091 kg, Total Volume: 1,000, thiamine 500mg total, Start date: 04/05/16 18:15:00 [employer], Duration: 1 doses or times, Stop date: 04/06/16 4:14:00 [employer] Inactive 04/06/2016 [facility] Sodium Chloride 0.154 MEQ/ML Injectable Solution 1,000 mL, Rate: 100 ml/hr, Infuse over: 10 hr, Route: IV, Dosing Weight 64.091 kg, Total Volume: 1,000, Start date: 04/05/16 18:13:00 [employer], Duration: 1 doses or times, Stop date: 04/06/16 4:12:00 [employer] Inactive 04/06/2016 [facility] Sodium Chloride 0.154 MEQ/ML Injectable Solution 1,000 mL, 2,000 ml/hr, Infuse Over: 30 minutes, Route: IV, 1,000, Drug form: INJ, ONCE, Priority: STAT, Dosing Weight 64.091 kg, Start date: 04/05/16 18:12:00 [employer], Duration: 1 doses or times, Stop date: 04/05/16 18:12:00 [employer] Inactive 04/06/2016 [facility] Saline Flush 0.9% Notes: (Same as: BD Posiflush) No Longer Active 04/06/2016 [facility] Morphine 4 mg, Route: IVP, ONC E, Dosing Weight 61.818, kg, Priority: STAT, Start date: 03/02/16 22:39:00 CDT, Stop date: 03/02/16 22:39:00 CDT Inactive 03/03/2016 [facility] Acetaminophen 300 MG / Codeine Phosphate 30 MG Oral Tablet [Tylenol with Codeine #3] 1 tab, PO, Q6H, PRN Pain, X 5 day, # 20 tab, 0 Refill(s) Active 03/03/2016 [facility] Cephalexin 500 MG Oral Capsule [Keflex] 500 mg = 1 cap, PO, QID, X 7 day, # 28 cap, 0 Refill(s) Active 03/03/2016 [facility] Ceftriaxone Notes: (Same As: Deni potter). Use with 100 mL NS and infuse over 30 min MEDICATION WASTE Product Size: 1000 mg Product Wasted: ___ mg Inactive 03/03/2016 [facility] Promethazine 12.5 mg, Route: I VPB, ONCE, Dosing Weight 61.818, kg, Priority: STAT, Start date: 03/02/16 22:01:00 CDT, Stop date: 03/02/16 22:01:00 CDT Inactive 03/03/2016 [facility] Ondansetron 4 mg, Route: IVP, Drug form: INJ, ONCE, Dosing Weight 61.818, kg, Priority: STAT, Start date: 03/02/16 20:54:00 CDT, Stop date: 03/02/16 20:54:00 CDT Inactive 03/03/2016 [facility] Morphine 4 mg, Route: IVP, ONC E, Dosing Weight 61.818, kg, Priority: STAT, Start date: 03/02/16 20:54:00 CDT, Stop date: 03/02/16 20:54:00 CDT Inactive 03/03/2016 [facility] Saline Flush 0.9% Notes: (Same as: BD Posiflush) No Longer Active 03/03/2016 [facility] tramadol hydrochloride 50 MG Oral Tablet 50 mg = 1 tab, PO, BID, X 7 day, # 14 tab, 0 Refill(s) Active 03/21/2015 [facility] Morphine 4 mg, Route: IM, Drug form: INJ, ONCE, Dosing Weight 64.545, kg, Priority: STAT, Start date: 03/20/15 22:11:00, Stop date: 03/20/15 22:11:00 Inactive 03/21/2015 [facility] Ketorolac 4 days MEDICA TION WASTE Product Size: 30 mg Product Wasted: ___ mg No Longer Active 09/27/2014 [facility] Acetaminophen 325 MG / butalbital 50 MG / Caffeine 40 MG Oral Tablet [Esgic] Notes: (kgevvvhhbgqow-oegbwzjbxx-zdypfjp e 325-50-40mg) Do not exceed 4 gm/day of acetaminophen. (Same as: Esgic, Fioricet) No Longer Active 09/27/2014 [facility] Acetaminophen 300 MG / butalbital 50 MG / Caffeine 40 MG Oral Capsule [Fioricet] Notes: (xhcvoqalvdmac-jgianftrjc-panamkn e 325-50-40mg) Do not exceed 4 gm/day of acetaminophen. (Same as: Esgic, Fioricet) Inactive 09/26/2014 [facility] Promethazine Notes: (Same as: Phenergan) No Longer Active 09/26/2014 [facility] Promethazine Notes: (Same as: Phenergan) No Longer Active 09/26/2014 [facility] GI cocktail Notes: [place] = antacid with simethicone 22.5 mL - lidocaine viscous 7.5 mL No Longer Active 09/25/2014 [facility] Glucose 50 MG/ML / Sodium Chloride 0.076 9 MEQ/ML Injectable Solution 1,000 mL, Rate: 125 ml/hr, Infuse over: 8 hr, Route: IV, Dosing Weight 65.455 kg, Total Volume: 1,000, Start date: 09/21/14 0:34:00, Stop date: 10/21/14 0:33:00 No Longer Active 09/21/2014 [facility] d50 syringe 12.5 gm, 25 mL, Ro marita: IVP, Drug Form: INJ, Dosing Weight 65.455, kg, PRN, PRN Blood Glucose Results, Start date: 09/21/14 0:17:00, Duration: 30 day, Stop date: 10/21/14 0:16:00 No Longer Active 09/21/2014 [facility] Ondansetron Notes: (Same as: Manoj parnell) MEDICATION WASTE Product Size: 4 mg Product Wasted: ___ mg No Longer Active 09/19/2014 [facility] Phenergan Notes: (Same as: Phe nergan) No Longer Active 09/19/2014 [facility] Oxycodone Hydrochloride 5 MG Oral Tablet Notes: (Same as: Roxicodone) No Longer Active 09/19/2014 [facility] 72 HR Scopolamine 0.0139 MG/HR Transdermal Patch Notes: Change patch every 72 hours (Same as: Transderm-Scop) No Longer Active 09/18/2014 [facility] Nicotine 21 mg, 1 patch, Route : TOP, Drug form: ERFILM, Daily, Dosing Weight 65.455, kg, Start date: 09/17/14 12:00:00, Duration: 30 day, Stop date: 10/17/14 9:00:00 No Longer Active 09/17/2014 [facility] Sodium Chloride 0.154 MEQ/ML Injectable Solution 500 mL, Rate: 25 ml/hr, Infuse over: 20 hr, Route: IV, Dosing Weight 65.455 kg, Total Volume: 500, Start date: 09/16/14 12:22:00, Duration: 1 day, Stop date: 09/17/14 12:21:00 Inactive 09/16/2014 [facility] Protonix Notes: Tablet should not be chewed or crushed. (Same as: Protonix) No Longer Active 09/16/2014 [facility] Amitriptyline Notes: (Same as: Elavil) No Longer Active 09/15/2014 [facility] Dilaudid 1 mg, 1 mL, Route: IV , Drug form: INJ, Q4H, Dosing Weight 65.455, kg, PRN Pain Score 7-10, Start date: 09/15/14 10:53:00, Duration: 30 day, Stop date: 10/15/14 10:52:00 No Longer Active 09/15/2014 [facility] Celexa Notes: (Same As: CeleXA) No Longer Active 09/15/2014 [facility] Hydroxyzine Notes: (Same as: A tarax) Avoid alcohol. No Longer Active 09/15/2014 [facility] Diazepam Notes: (Same as: Sanchez um) No Longer Active 09/14/2014 [facility] Dilaudid 2 mg, 2 mL, Route: IV , Drug form: INJ, Q4H, Dosing Weight 65.455, kg, PRN Pain Score 7-10, Start date: 09/14/14 13:03:00, Stop date: 10/14/14 13:02:00 N o Longer Active 09/14/2014 [facility] Acetaminophen 325 MG / Hydrocodone Faby trate 10 MG Oral Tablet [[place] 10/325] Notes: Do not exceed 4gm/day of acetamin ophen. (Same as: [place] 325/10) No Longer Active 09/14/2014 [facility] zolpidem Notes: (Same As: Ambi en) No Longer Active 09/14/2014 [facility] Diphenhydramine Notes: (Same a s: Benadryl) Inactive 09/14/2014 [facility] Diazepam Notes: (Same as: Sanchez nolasco) Inactive 09/14/2014 [facility] Celexa Notes: (Same As: CeleXA) No Longer Active 09/14/2014 [facility] Saline Flush 0.9% Notes: prese rvative free. No Longer Active 09/14/2014 [facility] Sodium Chloride 0.154 MEQ/ML Injectable Solution 1,000 mL, Rate: 60 ml/hr, Infuse over: 16.7 hr, Route: IV, Dosing Weight 60 kg, Total Volume: 1,000, Start date: 09/14/14 2:59:00, Stop date: 10/14/14 2:58:00 No Longer Active 09/14/2014 [facility] Ondansetron Notes: (Same as: Manoj parnell) MEDICATION WASTE Product Size: 4 mg Product Wasted: ___ mg No Longer Active 09/14/2014 [facility] Morphine Notes: (Same as:MORPh ine Sulfate) Inactive 09/14/2014 [facility] Dilaudid 1 mg, 1 mL, Route: IV P, Drug form: INJ, Q6H, Dosing Weight 60, kg, PRN Pain Score 6-10, Priority: STAT, Start date: 09/14/14 2:34:00, Duration: 30 day, Stop date: 10/14/14 2:33:00 Inactive 09/14/2014 [facility] Morphine Notes: (Same as:MORPh ine Sulfate) Inactive 09/14/2014 [facility] Ambien Notes: (Same As: Ambien) Inactive 09/14/2014 [facility] Phenergan Notes: Do not give I V push. (Same as: Phenergan) No Longer Active 09/14/2014 [facility] Zofran Notes: (Same as: Zofran ) MEDICATION WASTE Product Size: 4 mg Product Wasted: ___ mg Inactive 09/14/2014 [facility] pantoprazole Notes: For IV pus h reconstitute with 10 ml 0.9% sodium chloride and push over 2 minutes. (Same as: Protonix) No Longer Active 09/14/2014 [facility] normal saline 0.9% IV 1,000 mL 1,000 mL, Rate: 75 ml/hr, Infuse over: 13.3 hr, Route: IV, Dosing Weight 60 kg, Total Volume: 1,000, Start date: 09/14/14 2:25:00, Duration: 30 day, Stop date: 10/14/14 2:24:00 Inactive 09/14/2014 [facility] Benadryl 12.5 mg, Route: IVP, ONCE, Dosing Weight 60, kg, Priority: STAT, Start date: 09/14/14 2:12:00, Stop date: 09/14/14 2:12:00 Inactive 09/14/2014 [facility] Reglan 10 mg, Route: IVP, Drug form: INJ, ONCE, Dosing Weight 60, kg, Priority: STAT, Start date: 09/14/14 1:31:00, Stop date: 09/14/14 1:31:00 Inactive 09/14/2014 [facility] Acetaminophen 325 MG / Hydrocodone Faby trate 10 MG Oral Tablet [[place] 10/325] 1-2 tab, PO, Q4-6H, PRN Pain, X 5 day, # 15 tab, 0 Refill(s) No Longer Active 09/14/2014 [facility] Promethazine Hydrochloride 25 MG Rectal Suppository [Phenergan] 25 mg = 1 supp, PA, Q6H, PRN Nausea & Vo miting, X 3 day, # 9 supp, 0 Refill(s) No Longer Active 09/14/2014 [facility] Promethazine Hydrochloride 25 MG Oral Ta blet [Phenergan] 25 mg = 1 tab, PO, Q6H, PRN Nausea, X 4 day, # 15 tab, 0 Refill(s) No Longer Active 09/14/2014 [facility] Acetaminophen 325 MG / Hydrocodone Faby trate 10 MG Oral Tablet [[place] 10/325] 1 tab, Route: PO, Drug Form: TAB, Dosing Weight 60, kg, ONCE, STAT, Start date: 09/14/14 0:58:00, Stop date: 09/14/14 0:58:00 Inactive 09/14/2014 [facility] Phenergan Notes: Do not give I V push. (Same as: Phenergan) No Longer Active 09/14/2014 [facility] Dilaudid 2 mg, 2 mL, Route: IV P, Drug form: INJ, ONCE, Dosing Weight 60, kg, Priority: STAT, Start date: 09/13/14 23:58:00, Stop date: 09/13/14 23:58:00 No Longer Active 09/14/2014 [facility] Phenergan 12.5 mg, Route: IVPB , ONCE, Dosing Weight 60, kg, Priority: STAT, Start date: 09/13/14 22:17:00, Stop date: 09/13/14 22:17:00 Inactive 09/14/2014 [facility] Sodium Chloride 0.154 MEQ/ML Injectable Solution 1,000 mL, Infuse Over: 1 hr, Route: IV, ONCE, Priority: STAT, Dosing Weight 60 kg, Start date: 09/13/14 22:17:00, Duration: 1 doses or times, Stop date: 09/13/14 22:17:00 Inactive 09/14/2014 [facility] Saline Flush 0.9% Notes: prese rvative free. No Longer Active 09/14/2014 [facility] Morphine 6 mg, Route: IVP, ONC E, Dosing Weight 60, kg, Priority: STAT, Start date: 09/13/14 22:17:00, Stop date: 09/13/14 22:17:00 Inactive 09/14/2014 [facility] Acetaminophen 325 MG / Hydrocodone Faby trate 5 MG Oral Tablet [[place] 5/325] 1-2 tab, PO, Q4-6H, Pain, # 12 tab, 0 Re fill(s) Active 02/09/2014 [facility] Acetaminophen 325 MG / Hydrocodone Faby trate 5 MG Oral Tablet [[place] 5/325] 1 tab, Route: PO, Dosing Weight 66.364, kg, ONCE, Start date: 02/09/14 10:08:00, Stop date: 02/09/14 10:08:00 Inactive 02/09/2014 [facility] Miralax Notes: Dissolve in 8 o z of water or juice. (Same as: Miralax) Inactive 2013 [facility] Promethazine Notes: Do not giv e IV push. (Same as: Phenergan) No Longer Active 12/16/2013 [facility] Depacon Notes: Dilute in at le ast 50ml D5W or NS. Infusion rate = 20 mg/min (Same As: Depacon) Inactive 12/13/2013 [facility] Dextrose 50% Syringe 25 gm, 50 mL, Route: IV, Drug Form: INJ, Dosing Weight 63.636, kg, PRN, PRN Blood Glucose Results, Start date: 12/12/13 12:48:00, Duration: 30 day, Stop date: 01/11/14 12:47:00 No Longer Active 12/12/2013 [facility] gabapentin Notes: (Same as: Ne urontin) No Longer Active 12/12/2013 [facility] Protonix Notes: Tablet should not be chewed or crushed. (Same as: Protonix) No Longer Active 12/11/2013 [facility] Dilaudid 0.8 mg, 0.8 mL, Route : IV, Drug form: INJ, Q6H, Dosing Weight 63.636, kg, PRN Severe Pain, Start date: 12/11/13 11:22:00, Stop date: 01/10/14 11:21:00 No Longer Active 12/11/2013 [facility] Ketorolac 4 days No Longer Active 12/11/2013 [facility] Phenergan Notes: Do not give I V push. (Same as: Phenergan) Inactive 12/11/2013 [facility] Dexamethasone 10 mg, 2.5 mL, R oute: IVPB, Drug form: INJ, ONCE, Dosing Weight 63.636, kg, Start date: 12/11/13 10:08:00, Stop date: 12/11/13 10:08:00 Inactive 12/11/2013 [facility] Miralax Notes: Dissolve in 8 o z of water or juice. (Same as: Miralax) No Longer Active 12/11/2013 [facility] Multiple Vitamins with Minerals oral tablet Notes: (Same as:Thera-M, Theragran-M) Give with food. No Longer Active 12/11/2013 [facility] Celexa Notes: (Same As: CeleXA) No Longer Active 12/11/2013 [facility] Diazepam Notes: (Same as: Sanchez um) No Longer Active 12/11/2013 [facility] zolpidem 10 mg, Route: PO, David g form: TAB, Bedtime, Dosing Weight 63.636, kg, PRN as needed for sleep, Start date: 12/11/13 5:46:00, Duration: 30 day, Stop date: 01/10/14 5:45:00 Inactive 12/11/2013 [facility] Hyoscyamine Notes: (Same as: L evsin) Take 30 min before meal No Longer Active 12/11/2013 [facility] Chlordiazepoxide Hydrochloride 25 MG Oral Capsule 25 mg, 1 cap, Route: PO, Drug form: CAP, QID, Dosing Weight 63.636, kg, PRN as needed for anxiety, Start date: 12/11/13 5:45:00, Duration: 30 day, Stop date: 01/10/14 5:44:00 No Longer Active 12/11/2013 [facility] Ambien Notes: (Same As: Ambien) No Longer Active 12/11/2013 [facility] Protonix Notes: For IV push re constitute with 10 ml 0.9% sodium chloride and push over 2 minutes. (Same as: Protonix) No Longer Active 12/10/2013 [facility] Promethazine Notes: Do not giv e IV push. (Same as: Phenergan) No Longer Active 12/10/2013 [facility] Dilaudid 0.5 mg, 0.5 mL, Route : IV, Drug form: INJ, Q3H, Dosing Weight 64.545, kg, PRN Pain, Start date: 12/10/13 11:33:00, Duration: 30 day, Stop date: 01/09/14 11:32:00 No Longer Active 12/10/2013 [facility] D5W 1/2NS + KCL 20mEq/L 1000ml (Premix) 1,000 mL Notes: PREMIX IV - Do Not Alter No Longer Active 12/10/2013 [facility] Saline Flush 0.9% Notes: Same as: BD Posiflush Sterile No Longer Active 12/10/2013 [facility] Docusate Notes: (Same as: Cola ce) (Do Not Crush) No Longer Active 12/10/2013 [facility] Acetaminophen Notes: Do not ex ceed 4 gm/day. (Same as: Tylenol) No Longer Active 12/10/2013 [facility] Haldol Notes: (Same as: Haldol) Inactive 12/07/2013 [facility] Lorazepam Notes: (Same as: Ati van) Inactive 12/07/2013 [facility] Valproic Acid 100 MG/ML Injectable Solution Notes: Dilute in at least 50ml D5W or NS. Infusion rate = 20 mg/min (Same As: Depacon) No Longer Active 12/07/2013 [facility] Metoclopramide Notes: (Same as : Reglan) No Longer Active 12/07/2013 [facility] Diphenhydramine Notes: (Same a s: Benadryl) No Longer Active 12/07/2013 [facility] Ketorolac 4 days No Longer Active 12/07/2013 [facility] Sodium Chloride 0.154 MEQ/ML Injectable Solution 1,000 mL, 1,000 ml/hr, Infuse Over: 1 hr, Route: IV, 1,000, Drug form: INJ, ONCE, Priority: STAT, Dosing Weight 64.545 kg, Start date: 12/06/13 23:43:00, Duration: 1 doses or times, Stop date: 12/06/13 23:43:00 No Longer Active 12/07/2013 [facility] pantoprazole Notes: Tablet lolis uld not be chewed or crushed. (Same as: Protonix) Inactive 09/24/2013 [facility] promethazine 25 mg rectal suppository 25 mg = 1 supp, PA, Q4H, Nausea & Vomiting, # 10 supp, 0 Refill(s) Active 09/24/2013 [facility] Acetaminophen 325 MG / Hydrocodone Faby trate 10 MG Oral Tablet [[place] 10/325] 1 tab, PO, Q4H, for pain, # 50 tab, 0 Re fill(s) Active 09/24/2013 [facility] Zantac 300 300 mg, Route: PO, Drug form: TAB, Bedtime, Dosing Weight 65.455, kg, Start date: 09/23/13 21:00:00, Duration: 30 day, Stop date: 10/22/13 21:00:00 Inactive 09/24/2013 [facility] Pepcid Notes: (Same as: Pepcid) No Longer Active 09/24/2013 [facility] Ativan Notes: (Same as: Ativan) No Longer Active 09/24/2013 [facility] Phenergan Notes: (Same as: Phe nergan) No Longer Active 09/23/2013 [facility] Acetaminophen 325 MG / Hydrocodone Faby trate 5 MG Oral Tablet [[place] 5/325] Notes: (Same as: [place] 325/5) Do not ex ceed 4gm/day of acetaminophen. No Longer Activ e 09/23/2013 [facility] magnesium citrate Notes: (Same as: Citrate of Magnesia) Inactive 09/21/2013 [facility] pantoprazole Notes: Tablet lolis uld not be chewed or crushed. (Same as: Protonix) N o Longer Active 09/21/2013 [facility] Ativan Notes: (Same as: Ativan) No Longer Active 09/21/2013 [facility] Dextrose 50% Syringe 25 gm, 50 mL, Route: IV, Drug Form: INJ, Dosing Weight 65.455, kg, PRN, PRN Blood Glucose Results, Start date: 09/20/13 13:48:00, Duration: 30 day, Stop date: 10/20/13 13:47:00, blood sugar <50 No Longer Active 09/20/2013 [facility] Phenergan Notes: Do not give I V push. (Same as: Phenergan) No Longer Active 09/20/2013 [facility] Miralax Notes: Dissolve in 8 o z of water or juice. (Same as: Miralax) No Longer Active 09/19/2013 [facility] Phenergan Notes: (Same as: Phe nergan) No Longer Active 09/19/2013 [facility] Protonix Notes: For IV push re constitute with 10 ml 0.9% sodium chloride and push over 2 minutes. (Same as: Protonix) No Longer Active 09/19/2013 [facility] Celexa Notes: (Same As: CeleXA) No Longer Active 09/19/2013 [facility] Phenergan Notes: Do not give I V push. (Same as: Phenergan) No Longer Active 09/19/2013 [facility] Phenergan Notes: Do not give I V push. (Same as: Phenergan) No Longer Active 09/19/2013 [facility] Chlordiazepoxide Hydrochloride 25 MG Oral Capsule 25 mg, 1 cap, Route: PO, Drug form: CAP, QID, Dosing Weight 65.455, kg, Start date: 09/18/13 21:00:00, Duration: 30 day, Stop date: 10/18/13 17:00:00 No Longer Active 09/19/2013 [facility] Ambien Notes: (Same As: Ambien) No Longer Active 09/19/2013 [facility] Hydroxyzine Notes: (Same as: V istaril) No Longer Active 09/19/2013 [facility] Temazepam Notes: (Same As: Res toril) Inactive 09/18/2013 [facility] Dilaudid 1 mg, 1 mL, Route: IV , Drug form: INJ, Q3H, Dosing Weight 69.545, kg, PRN Pain Score 7-10, Start date: 09/18/13 16:45:00, Duration: 30 day, Stop date: 10/18/13 16:44:00 No Longer Active 09/18/2013 [facility] Acetaminophen Notes: Do not ex ceed 4 gm/day. (Same as: Tylenol) No Longer Active 09/18/2013 [facility] Docusate Notes: (Same as: Cola ce) (Do Not Crush) No Longer Active 09/18/2013 [facility] Saline Flush 0.9% Notes: (Same as: BD Posiflush) No Longer Active 09/18/2013 [facility] D5W 1/2NS + KCL 20mEq/L 1000ml (Premix) 1,000 mL Notes: PREMIX IV - Do Not Alter No Longer Active 09/18/2013 [facility] Acetaminophen 325 MG / Hydrocodone Faby trate 10 MG Oral Tablet [[place] 10/325] 1 tab, PO, Q4H, for pain, # 50 tab, 0 Re fill(s) Active 09/13/2013 [facility] Acetaminophen 65 MG/ML / Oxycodone Osborne chloride 1 MG/ML Oral Solution 5 ml, PO, Q4H, for pain, # 480 mL, 0 Ref ill(s) Active 09/13/2013 [facility] Acetaminophen 65 MG/ML / Oxycodone Osborne chloride 1 MG/ML Oral Solution 5 ml, PO, Q4H, for pain, # 480 mL, 0 Ref ill(s) Active 09/13/2013 [facility] Ciprofloxacin 500 MG Oral Tablet [Cipro] 500 mg = 1 tab, PO, Q12H, # 28 tab, 0 Refill(s) Active 09/13/2013 [facility] Acetaminophen 325 MG / Hydrocodone Faby trate 5 MG Oral Tablet [[place] 5/325] 1 tab, Route: PO, Dosing Weight 69.545, kg, ONCE, Start date: 09/13/13 2:44:00, Stop date: 09/13/13 2:44:00 Inactive 09/13/2013 [facility] Acetaminophen 33.3 MG/ML / Hydrocodone B itartrate 0.5 MG/ML Oral Solution 15 ml, PO, Q4H, for pain, # 60 mL, 0 Ref ill(s) Active 09/13/2013 [facility] Ondansetron 8 MG Disintegrating Tablet [Zofran] Special Instructions: Dissolve tab under tongue Active 09/13/2013 [facility] promethazine 50 mg rectal suppository 50 mg = 1 supp, PA, Q6H, Nausea & Vomiting, # 12 supp, 0 Refill(s) Active 09/13/2013 [facility] Ciprofloxacin Notes: Do not re frigerate Inactive 09/13/2013 [facility] Sodium Chloride 0.154 MEQ/ML Injectable Solution 1,000 mL, 1,000 ml/hr, Infuse Over: 1 hr, Route: IV, 1,000, Drug form: INJ, ONCE, Priority: STAT, Dosing Weight 69.545 kg, Start date: 09/12/13 23:34:00, Duration: 1 doses or times, Stop date: 09/12/13 23:34:00 Inactive 09/13/2013 [facility] d50 syringe Special Instructio ns: 25 ml = 12.5 gm No Longer Active 09/13/2013 [facility] Dilaudid 0.5 mg, 0.5 mL, Route : IV, Drug form: INJ, Q3H, Dosing Weight 69.545, kg, Start date: 09/12/13 23:00:00, Duration: 30 day, Stop date: 10/12/13 20:00:00 No Longer Active 09/13/2013 [facility] Promethazine Notes: Do not giv e IV push. (Same as: Phenergan) Inactive 09/13/2013 [facility] Ondansetron Notes: (Same as: Manoj parnell) Inactive 09/13/2013 [facility] Sodium Chloride 0.154 MEQ/ML Injectable Solution 1,000 mL, 1,000 ml/hr, Infuse Over: 1 hr, Route: IV, 1,000, Drug form: INJ, ONCE, Priority: STAT, Dosing Weight 69.545 kg, Start date: 09/12/13 20:50:00, Duration: 1 doses or times, Stop date: 09/12/13 20:50:00 Inactive 09/13/2013 [facility] Famotidine Notes: (Same as: Isaías pcid) Can be dilute in 5- 10cc NS IVP: Slow IV push over at least 2 minutes. Inactive 09/13/2013 [facility] Acetaminophen 325 MG / Hydrocodone Faby trate 10 MG Oral Tablet 1 tab, PO, Q4H, Pain Score 4-6, # 10 tab , 0 Refill(s) Active 09/10/2013 [facility] promethazine 25 mg rectal suppository 25 mg = 1 supp, PA, Q4H, Nausea & Vomiting, # 10 supp, 0 Refill(s) Active 09/10/2013 [facility] Ondansetron 0.8 MG/ML Oral Solution [Zofran] Notes: (Same as: Zofran ODT) No Longe r Active 09/09/2013 [facility] Phenergan Notes: (Same as: Phe nergan) No Longer Active 09/09/2013 [facility] Thiamine Notes: (Same As: Danica min B1) No Longer Active 09/09/2013 [facility] Metoclopramide 10 MG Oral Tablet [Reglan] Notes: (Same as: Reglan) Take 30 min before meals No Longer Active 09/08/2013 [facility] promethazine 12.5 mg rectal suppository 12.5 mg = 1 supp, PA, Q4H, Nausea & Vomiting, # 12 can, 0 Refill(s) Active 09/07/2013 [facility] Phenergan Notes: (Same as: Phe nergan) No Longer Active 09/07/2013 [facility] Protonix Notes: Tablet should not be chewed or crushed. (Same as: Protonix) No Longer Active 09/06/2013 [facility] Actigall Notes: (Same As: Acti gall) No Longer Active 09/06/2013 [facility] hydrocortisone acetate 25 MG Rectal Supp ository [Anusol HC] Notes: (Same as: Anusol-HC, Hemorrhoidal HC) No Longer Active 09/05/2013 [facility] Metronidazole 500 MG Oral Tablet Notes: (Same as: Flagyl) Take with food/ avoid alcohol No Longer Active 09/05/2013 [facility] Sodium Chloride 0.154 MEQ/ML Injectable Solution 1,000 mL, Rate: 25 ml/hr, Infuse over: 40 hr, Route: IV, Dosing Weight 67.273 kg, Total Volume: 1,000, Start date: 09/05/13 12:09:00, Duration: 1 day, Stop date: 09/06/13 12:08:00 Inactive 09/05/2013 [facility] D5NS 1,000 mL 1,000 mL, Rate: 125 ml/hr, Infuse over: 8 hr, Route: IV, Dosing Weight 67.273 kg, Total Volume: 1,000, Start date: 09/04/13 20:05:00, Duration: 30 day, Stop date: 10/04/13 20:04:00 No Longer Active 09/05/2013 [facility] Golytely Notes: (polyethylene glycol electrolyte solution 4 Liter bottle) (Same as: Golytely, Colyte) Inactive 09/04/2013 [facility] Miralax Notes: Dissolve in 8 o z of water or juice. (Same as: Miralax) No Longer Active 09/03/2013 [facility] Docusate Sodium 100 MG Oral Capsule 100 mg, 1 cap, Route: PO, Drug form: CAP, BID, Dosing Weight 67.273, kg, PRN Constipation, Start date: 09/03/13 12:48:00, Duration: 30 day, Stop date: 10/03/13 12:47:00 Inactive 09/03/2013 [facility] Protonix Notes: For IV push re constitute with 10 ml 0.9% sodium chloride and push over 2 minutes. (Same as: Protonix) No Longer Active 09/03/2013 [facility] Hydroxyzine Notes: (Same as: A tarax) Avoid alcohol. No Longer Active 09/03/2013 [facility] Ambien Notes: (Same As: Ambien) No Longer Active 09/03/2013 [facility] Benadryl Notes: (Same as: Ceylon dryl) No Longer Active 09/02/2013 [facility] Hyoscyamine Notes: (Same as: L evsin) Take 30 min before meal No Longer Active 09/02/2013 [facility] Dilaudid 1 mg, 1 mL, Route: IV , Drug form: INJ, Q4H, Dosing Weight 67.273, kg, PRN Pain Score 7-10, Start date: 09/02/13 17:35:00, Duration: 30 day, Stop date: 10/02/13 17:34:00 No Longer Active 09/02/2013 [facility] Diazepam Notes: (Same as: Sanchez um) No Longer Active 09/02/2013 [facility] Potassium Chloride 20 MEQ Extended Release Tablet Notes: (Same as: K-Dur 20) "Do Not Crush" With food and full glass of water No Longer Active 09/02/2013 [facility] Ascorbic Acid / Beta Carotene / cuprous oxide / Lutein / sodium selenate / Vitamin E / Zinc Oxide Notes: (Same as:Thera-M, Theragran-M) Give with food. No Longer Active 09/02/2013 [facility] Celexa Notes: (Same As: CeleXA) No Longer Active 09/02/2013 [facility] promethazine 25 mg oral tablet 25 mg = 1 tab, PO, Q6H, Nausea & Vomiting, # 15 tab, 0 Refill(s) No Longer Active 09/02/2013 [facility] zolpidem 10 mg oral tablet 10 mg = 1 tab, PO, Bedtime, for sleep, 0 Refill(s) Active 09/02/2013 [facility] Miralax 17 gm, PO, Daily, 0 Re fill(s) Active 09/02/2013 [facility] hyoscyamine 0.125 mg sublingual tablet 0.125 mg = 1 tab, SL, Q6H, GI Upset, 0 Refill(s) Active 09/02/2013 [facility] Phenergan Notes: Do not give I V push. (Same as: Phenergan) No Longer Active 09/02/2013 [facility] Ondansetron Notes: (Same as: Manoj parnell) Inactive 09/02/2013 [facility] Morphine Notes: (Same as:MORPh ine Sulfate) Inactive 09/02/2013 [facility] Docusate Notes: (Same as: Cola ce) (Do Not Crush) No Longer Active 09/02/2013 [facility] Saline Flush 0.9% Notes: (Same as: BD Posiflush) No Longer Active 09/02/2013 [facility] Sodium Chloride 0.0769 MEQ/ML Injectable Solution 1,000 mL, Rate: 125 ml/hr, Infuse over: 8 hr, Route: IV, Dosing Weight 67.273 kg, Total Volume: 1,000, Start date: 09/02/13 8:21:00, Duration: 30 day, Stop date: 10/02/13 8:20:00 Inactive 09/02/2013 [facility] Acetaminophen Notes: Max aceta minophen = 4000mg/day (4 gm/day). (Same as: Tylenol) N o Longer Active 09/02/2013 [facility] Acetaminophen 325 MG / Hydrocodone Faby trate 10 MG Oral Tablet Notes: Do not exceed 4gm/day of acetamin ophen. (Same as: [place] 325/10) No Longer Active 09/02/2013 [facility] Acetaminophen 325 MG / Hydrocodone Faby trate 5 MG Oral Tablet Notes: (Same as: [place] 325/5) Do not ex ceed 4gm/day of acetaminophen. No Longer Active 09/02/2013 [facility] Chlordiazepoxide Hydrochloride 25 MG Oral Capsule 25 mg, 1 cap, Route: PO, Drug form: CAP, QID, Dosing Weight 67.273, kg, PRN as needed for anxiety, Start date: 09/02/13 7:30:00, Duration: 30 day, Stop date: 10/02/13 7:29:00 No Longer Active 09/02/2013 [facility] normal saline 0.9% IV 1,000 mL 1,000 mL, Rate: 125 ml/hr, Infuse over: 8 hr, Route: IV, Dosing Weight 67.273 kg, Total Volume: 1,000, Start date: 09/02/13 7:29:00, Duration: 30 day, Stop date: 10/02/13 7:28:00 No Longer Active 09/02/2013 [facility] Zofran 4 mg, Route: IVP, Drug form: INJ, ONCE, Dosing Weight 67.273, kg, Priority: STAT, Start date: 09/02/13 4:03:00, Stop date: 09/02/13 4:03:00 Inactive 09/02/2013 [facility] Promethazine Hydrochloride 25 MG Oral Ta blet [Phenergan] 25 mg = 1 tab, PO, Q4H, Nausea, # 15 tab, 0 Refill(s) Inactive 09/02/2013 [facility] Dilaudid 1 mg, Route: IV, ONCE , Dosing Weight 67.273, kg, Start date: 09/02/13 2:49:00, Stop date: 09/02/13 2:49:00 Inactive 09/02/2013 [facility] Phenergan 12.5 mg, Route: IVPB , ONCE, Dosing Weight 67.273, kg, Priority: STAT, Start date: 09/02/13 2:49:00, Stop date: 09/02/13 2:49:00 Inactive 09/02/2013 [facility] Hydromorphone 1 mg, Route: IVP , ONCE, Dosing Weight 67.273, kg, Priority: STAT, Start date: 09/02/13 0:51:00, Stop date: 09/02/13 0:51:00 Inactive 09/02/2013 [facility] Phenergan Notes: Do not give I V push. (Same as: Phenergan) No Longer Active 09/02/2013 [facility] Sodium Chloride 0.154 MEQ/ML Injectable Solution 1,000 mL, 1000 ml/hr, Infuse Over: 1 hr, Route: IV, 1,000, Drug form: INJ, ONCE, Priority: STAT, Dosing Weight 67.273 kg, Start date: 09/01/13 23:58:00, Duration: 1 doses or times, Stop date: 09/01/13 23:58:00 No Longer Active 09/02/2013 [facility] Saline Flush 0.9% Notes: (Same as: BD Posiflush) No Longer Active 09/02/2013 [facility] pantoprazole 40 mg oral enteric coated tablet 40 mg = 1 tab, PO, Daily, # 30 tab, 0 Refill(s) On Hold 09/01/2013 [facility] promethazine 6.25 mg/5 mL oral syrup 18.75 mg = 15 mL, PO, QID, as needed for nausea/vomiting, # 500 mL, 0 Refill(s) On Hold 09/01/2013 [facility] Ondansetron Notes: (Same as: Manoj parnell ODT) Inactive 09/01/2013 [facility] Acetaminophen 325 MG / Hydrocodone Faby trate 10 MG Oral Tablet Notes: Do not exceed 4gm/day of acetamin ophen. (Same as: [place] 325/10) Inactive 09/01/2013 [facility] Solu-Medrol Notes: (Same as:So kristopher-MEDROL, A-Methapred) Inactive 09/01/2013 [facility] Diphenhydramine Notes: (Same a s: Benadryl) Inactive 09/01/2013 [facility] Metoclopramide Notes: (Same as : Reglan) Inactive 09/01/2013 [facility] Ondansetron Notes: (Same as: Z ofran) Inactive 09/01/2013 [facility] Hydromorphone 0.5 mg, 0.5 mL, Route: IVP, Drug form: INJ, ONCE, Dosing Weight 63.636, kg, Priority: STAT, Start date: 09/01/13 0:43:00, Stop date: 09/01/13 0:43:00 Inactive 09/01/2013 [facility] Sodium Chloride 0.154 MEQ/ML Injectable Solution 1,000 mL, 1,000 ml/hr, Infuse Over: 1 hr, Route: IV, 1,000, Drug form: INJ, ONCE, Priority: STAT, Dosing Weight 63.636 kg, Start date: 09/01/13 0:43:00, Duration: 1 doses or times, Stop date: 09/01/13 0:43:00 Inactive 09/01/2013 [facility] albuterol 90 mcg/inh inhalation aerosol 2 puff, INHALATION, QID, wheezing, # 1 can, 0 Refill(s) Active Terminella 06/10/2013 [facility] DuoNeb inhalation solution 3 m l, INHALATION, QID, Wheezing, # 60 ea, 0 Refill(s) Active Terminella 06/10/2013 [facility] docusate sodium 100 mg oral capsule 100 mg = 1 cap, PO, Daily, as needed for constipation, # 100 cap, 3 Refill(s) Active Jim 06/10/2013 [facility] polyethylene glycol 3350 oral powder for reconstitutio n 17 gm, PO, BID, # 527 gm, 1 Refill(s) Active Vikki paneni 06/10/2013 [facility] predniSONE 40 mg, 2 tab, Route : PO, Drug form: TAB, Daily, Dosing Weight 66.364, kg, Start date: 06/10/13 9:00:00, Duration: 30 day, Stop date: 07/09/13 9:00:00Take with food. Inactive Ra him 06/10/2013 [facility] Nebulizer 1 ea, MISC, ONCALL, # 1 ea, 0 Refill(s) Active [facility] 06/10/2013 [facility] zolpidem 10 mg oral tablet 10 mg = 1 tab, PO, Bedtime, # 7 tab, 0 Refill(s) Active [facility] 06/10/2013 [facility] predniSONE 20 mg oral tablet 4 0 mg = 2 tab, PO, Daily, # 10 tab, 0 Refill(s) Active [facility] 06/10/2013 [facility] levofloxacin 750 mg oral tablet 750 mg = 1 tab, PO, Daily, # 5 tab, 0 Refill(s) Active [facility] 06/10/2013 [facility] Promethazine DM oral syrup 5 m L, PO, Q6H, for cough, # 30 mL, 0 Refill(s) Active [facility] 06/10/2013 [facility] Bentyl 10 mg, 1 cap, Route: PO , Drug form: CAP, QID, Dosing Weight 66.364, kg, Start date: 06/09/13 21:00:00, Duration: 30 day, Stop date: 07/09/13 17:00:00(Same as: Bentyl) No Longer Active Jim 06/10/2013 [facility] Levaquin 500 mg, 2 tab, Route: PO, Drug form: TAB, Daily, Dosing Weight 66.364, kg, Start date: 06/09/13 21:00:00, Duration: 30 day, Stop date: 07/08/13 21:00:00Do not give w/antacids, dairy pdt & minerals Take 1 hr before or 2 hr after dairy pdt (Same as:Levaquin) No Longer Active [facility] 06/10/2013 [facility] MiraLax 17 gm, 1 pkt, Route: P O, Drug form: PWDR, BID, Dosing Weight 66.364, kg, Start date: 06/09/13 9:00:00, Duration: 30 day, Stop date: 07/08/13 17:00:00Dissolve in 8 oz of water or juice. (Same as: Miralax) No Longer Active Jim 06/09/2013 [facility] Colace 100 mg oral capsule 100 mg, 1 cap, Route: PO, Drug form: CAP, Bedtime, Dosing Weight 66.364, kg, Start date: 06/08/13 21:00:00, Duration: 30 day, Stop date: 07/07/13 21:00:00(Same as: Colace) (Do Not Crush) No Longer Active Jim 06/09/2013 [facility] Dilaudid 1 mg, 1 mL, Route: IV , Drug form: INJ, Q6H, Dosing Weight 66.364, kg, PRN Pain Score 6-10, Start date: 06/08/13 10:35:00, Duration: 30 day, Stop date: 07/08/13 10:34:00 No Longer Active Rapam 06/08/2013 [facility] hydromorphone 2 mg, 2 mL, Rout e: IVP, Drug form: INJ, ONCE, Dosing Weight 66.364, kg, Priority: STAT, Start date: 06/08/13 0:54:00, Stop date: 06/08/13 0:54:00 Inactive [facility] 06/08/2013 [facility] Flonase 0.05 mg/inh nasal spray 2 inhalation, Route: Each Affected Nostril, Drug Form: SPRY, Dosing Weight 66.364, kg, Daily, Start date: 06/07/13 9:00:00, Duration: 30 day, Stop date: 07/06/13 9:00:00(Same as: Flonase) No Longer Active Romo 06/07/2013 [facility] CeleXA 40 mg, 2 tab, Route: PO , Drug form: TAB, QAM, Dosing Weight 66.364, kg, Start date: 06/06/13 9:00:00, Duration: 30 day, Stop date: 07/05/13 9:00:00(Same As: CeleXA) No Longer Active Terminella 06/06/2013 [facility] Ambien 10 mg, 1 tab, Route: PO , Drug form: TAB, ONCE, Start date: 06/06/13 0:35:00, Stop date: 06/06/13 0:35:00(Same As: Ambien) Inactive [facility] 06/06/2013 [facility] Fioricet oral tablet 1 tab, Ro marita: PO, Drug Form: TAB, Dosing Weight 66.364, kg, Q4H, PRN Headache, Start date: 06/05/13 21:06:00, Duration: 30 day, Stop date: 07/05/13 21:05:00(pcvsosgeakmwg-[id number]-[id number] 325-50-40mg) Do not exceed 4 gm/day of acetaminophen. (Same as: Esgic, Fioricet) No Longer Active Rahim 06/06/2013 [facility] zolpidem 10 mg, 1 tab, Route: PO, Drug form: TAB, Bedtime, Dosing Weight 66.364, kg, Start date: 06/05/13 21:00:00, Duration: 30 day, Stop date: 07/04/13 21:00:00(Same As: Ambien) No Longer Active [facility] 06/06/2013 [facility] hydrOXYzine 25 mg, 1 tab, Rout e: PO, Drug form: TAB, Bedtime, Dosing Weight 66.364, kg, Start date: 06/05/13 21:00:00, Duration: 30 day, Stop date: 07/04/13 21:00:00(Same as: Atarax) Avoid alcohol. No Longer Active Terminella 06/06/2013 [facility] Tamiflu 75 mg, 1 cap, Route: P O, Drug form: CAP, [id number], Dosing Weight 66.364, kg, Start date: 06/05/13 21:00:00, Duration: 10 doses or times, Stop date: 06/10/13 9:00:00Take with food. Same as: Tamiflu) No Longer Active Terminella 06/06/2013 [facility] chlordiazePOXIDE 25 mg oral capsule 25 mg, 1 cap, Route: PO, Drug form: CAP, QID, Dosing Weight 66.364, kg, PRN Anxiety, Start date: 06/05/13 19:45:00, Duration: 30 day, Stop date: 07/05/13 19:44:00 No Longer Active Terminella 06/06/2013 [facility] Solu-MEDROL 20 mg, 0.5 mL, Rou te: IVP, Drug form: INJ, Q14H-86, Dosing Weight 67.727, kg, Start date: 06/05/13 18:00:00, Stop date: 07/05/13 6:00:00(Same as:Solu-MEDROL, A-Methapred) No Longer Active [facility] 06/06/2013 [facility] albuterol 1.25 mg, 3 mL, Route : NEB, Drug form: SOLN, PRN, PRN Respiratory Protocol, Start date: 06/05/13 16:04:00, Duration: 30 day, Stop date: 07/05/13 16:03:00SEE RT DOCUMENTATION (Same as: Proventil) No Longer Active [facility] 06/05 [facility] levofloxacin 750 mg oral tablet 750 mg = 1 tab, PO, Daily, # 10 tab, 0 Refill(s) N o Longer Active [facility] 06/05/2013 [facility] predniSONE 5 mg oral tablet 5 mg = 1 tab, PO, TID, # 21 tab, 0 Refill(s) No Longer Active 06/05/2013 [facility] chlordiazePOXIDE 25 mg oral capsule 25 mg = 1 cap, PO, QID, Anxiety, # 60 cap, 0 Refill(s) Active Term [facility] 06/05/2013 [facility] Promethazine DM oral syrup 5 m l, PO, Q6H, for cough, # 120 ml, 0 Refill(s) No Longer Active [facility] 06/05/2013 [facility] acetaminophen 650 mg, 2 tab, R oute: PO, Drug form: TAB, Q4H, Dosing Weight 67.727, kg, PRN Pain 1-3/Temp > 100.4 F, Start date: 06/05/13 14:49:00, Duration: 30 day, Stop date: 07/05/13 14:48:00Do not exceed 4 gm/day. (Same as: Tylenol) No Longer Active [facility] 06/05/2013 [facility] D5W 1/2NS + KCL 20mEq/L 1000ml (Premix) 1000 mL 1,000 mL, Rate: 100 ml/hr, Infuse over: 10 hr, Route: IV, Dosing Weight 67.727 kg, Total Volume: 1,000, Start date: 06/05/13 14:49:00, Duration: 30 day, Stop date: 07/05/13 14:48:00 Inactive [facility] 06/05/2013 [facility] docusate 100 mg, 1 cap, Route: PO, Drug form: CAP, BID, Dosing Weight 67.727, kg, PRN as needed for constipation, Start date: 06/05/13 14:49:00, Duration: 30 day, Stop date: 07/05/13 14:48:00(Same as: Colace) (Do Not Crush) No Longer Active [facility] 06/05/2013 [facility] Saline Flush 0.9% 5 ml, Route: IVP, Drug Form: INJ, Dosing Weight 67.727, kg, PRN, PRN Line Flush, Start date: 06/05/13 14:49:00, Duration: 30 day, Stop date: 07/05/13 14:48:00Same as: BD Posiflush Sterile No Longer Active [facility] 06/05 [facility] Restoril 30 mg, 2 cap, Route: PO, Drug form: CAP, Bedtime, Dosing Weight 67.727, kg, PRN Sleep, Start date: 06/05/13 12:03:00, Duration: 30 day, Stop date: 07/05/13 12:02:00(Same As: Restoril) No Longer Active [facility] 06/05/2013 [facility] normal saline 0.9% IV 1,000 mL 1,000 mL, Rate: 125 ml/hr, Infuse over: 8 hr, Route: IV, Dosing Weight 67.727 kg, Total Volume: 1,000, Start date: 06/05/13 12:02:00, Duration: 30 day, Stop date: 07/05/13 12:01:00 No Longer Active [facility] 06/05/2013 [facility] Robitussin-AC oral syrup 5 ml, Route: PO, Drug Form: LIQ, Dosing Weight 67.727, kg, Q4H, PRN Cough/Congestion, Start date: 06/05/13 12:02:00, Duration: 30 day, Stop date: 07/05/13 12:01:00(Same As: Robitussin AC) No Longer Active [facility] 06/05 [facility] Levaquin 500 mg, 100 mL, Route : IVPB, Drug form: INJ, [id number], Dosing Weight 67.727, kg, Start date: 06/05/13 12:00:00, Duration: 30 day, Stop date: 07/04/13 20:00:00(Same as:Levaquin) No Longer Active [facility] 06/05/2013 [facility] Xopenex 0.63 mg, Route: NEB, P RN, Dosing Weight 67.727, kg, PRN Respiratory Protocol, Start date: 06/05/13 11:57:00, Duration: 30 day, Stop date: 07/05/13 11:56:00 Inactive [facility] 06/05/2013 [facility] prochlorperazine 10 mg oral tablet 10 mg, 1 tab, PO, BID, PRN, 10 tab, Headache, Substitution Allowed, TAB PO Active [facility] 02/12/2013 [facility] NS (Bolus) IV 500 mL 500 mL, R ate: 500 ml/hr, Infuse over: 1 hr, Route: IV, Dosing Weight 67.727 kg, Total Volume: 500, Priority: STAT, Start date: 02/12/13 3:55:00, Duration: 1 doses or times, Stop date: 02/12/13 4:54:00, Bolus DoseBolus Dose IV No Longer Active [place] 02/12/2013 [facility] Benadryl 25 mg, Route: IVP, ON CE, Dosing Weight 67.727, kg, Priority: STAT, Start date: 02/12/13 3:43:00, Stop date: 02/12/13 3:43:00 IVP No Longer Active [place] 2012 [facility] Reglan 10 mg, Route: IVP, Drug form: INJ, ONCE, Dosing Weight 67.727, kg, Priority: STAT, Start date: 02/12/13 3:43:00, Stop date: 02/12/13 3:43:00 IVP No Longer Active [place] 02/12/2013 [facility] Dilaudid 1 mg, Route: IV, ONCE , Dosing Weight 67.727, kg, Start date: 02/12/13 0:43:00, Stop date: 02/12/13 0:43:00 IV No Longer Active [place] 02/12/2013 [facility] GI cocktail 30 mL, Route: PO, Dosing Weight 67.727, kg, ONCE, STAT, Start date: 02/12/13 0:40:00, Stop date: 02/12/13 0:40:00 PO No Longer Active [place] 2012 [facility] Dilaudid 1 mg, Route: IV, ONCE , Dosing Weight 67.727, kg, Start date: 02/11/13 23:52:00, Stop date: 02/11/13 23:52:00 IV No Longer Active [place] 02/12/2013 [facility] morphine Sulfate 4 mg, Route: IVP, Drug form: INJ, ONCE, Dosing Weight 67.727, kg, Priority: STAT, Start date: 02/11/13 22:12:00, Stop date: 02/11/13 22:12:00 IVP No Longer Active [place] 02/12/2013 [facility] ondansetron 4 mg, Route: IVP, Drug form: INJ, ONCE, Dosing Weight 67.727, kg, Priority: STAT, Start date: 02/11/13 22:12:00, Stop date: 02/11/13 22:12:00 IVP No Longer Active [place] 02/12/2013 [facility] Lactated Ringers Injection IV 1,000 mL 1,000 mL, Rate: 1,000 ml/hr, Infuse over: 1 hr, Route: IV, Dosing Weight 67.727 kg, Total Volume: 1,000, Bolus infusion, Priority: STAT, Start date: 02/11/13 22:12:00, Duration: 1 doses or times, Stop date: 02/11/13 23:11:00 IV No Longer Active [place] 02/12/2013 [facility] Cipro 750 mg oral tablet 750 m g, 1 tab, PO, Q12H, 6 tab, Substitution Allowed PO Active [facility] 09/28/2012 [facility] Dilaudid 1 mg, 0.5 mL, Route: IV, Drug form: INJ, ONCE, Dosing Weight 64.545, kg, Start date: 09/28/12 1:27:00, Stop date: 09/28/12 1:27:00 IV No Longer Active [facility] 09/28/2012 [facility] Dilaudid 1 mg, 0.5 mL, Route: IV, Drug form: INJ, ONCE, Dosing Weight 64.545, kg, Start date: 09/28/12 0:16:00, Stop date: 09/28/12 0:16:00 IV No Longer Active [facility] 09/28/2012 [facility] NS (Bolus) IV 1,000 mL 1,000 m L, Rate: 1,000 ml/hr, Infuse over: 1 hr, Route: IV, Dosing Weight 64.545 kg, Total Volume: 1,000, Priority: STAT, Start date: 09/28/12 0:15:00, Duration: 1 doses or times, Stop date: 09/28/12 1:14:00, Bolus DoseBolus Dose IV No Longer Active [facility] 09/28/2012 [facility] morphine Sulfate 4 mg, Route: IVP, ONCE, Dosing Weight 64.545, kg, Start date: 09/28/12 0:15:00, Stop date: 09/28/12 0:15:00 IVP No Longer Active [facility] 09/28 [facility] Tylenol 975 mg, 3 tab, Route: PO, Drug form: TAB, ONCE, Dosing Weight 64.545, kg, Priority: STAT, Start date: 09/27/12 22:12:00, Stop date: 09/27/12 22:12:00 PO No Longer Active [facility] 09/28/2012 [facility] oral tablet 1 tab, PO, Daily, Substitution Allowed, Maintenance PO Active 09/28/2012 [facility] nt magnesium sulfate 2 gm, 50 mL, Route: IVPB, Drug form: INJ, ONCE, Dosing Weight 64.545, kg, Total dose = 2 gm, Start date: 09/27/12 21:35:00, Duration: 1 doses or times, Stop date: 09/27/12 21:35:00 IVPB No Longer Active [facility] 09/28 [facility] diazepam 10 mg, 1 tab, Route: PO, Drug form: TAB, ONCE, Dosing Weight 64.545, kg, Priority: STAT, Start date: 09/27/12 21:17:00, Stop date: 09/27/12 21:17:00 PO No Longer Active [facility] 09/28/2012 [facility] Celexa 20 mg, PO, QAM, Substit ution Allowed PO Active 09/28/2012 [facility] Atarax 25 mg oral tab 25 mg, 1 tab, PO, Bedtime, Substitution Allowed PO Active 09/28/2012 [facility] Ambien Substitution Allowed No Longer Active 09/28/2012 [facility] ondansetron 2 mg/mL injectable solution 4 mg, 2 mL, IVP, Q6H, PRN, 10 mL, Nausea & Vomiting, Substitution Allowed, INJ IVP Active [facility] 08/11/2012 [facility] acetaminophen-hydrocodone 325 mg-5 mg oral tablet 2 tab, PO, Q4H, PRN, 15 tab, Pain Score 4-6, Substitution Allowed, Maintenance, TAB PO Active [facility] 08/11/2012 [facility] docusate sodium 100 mg oral capsule 100 mg, 1 cap, Route: PO, Drug form: CAP, BID, Dosing Weight 66.818, kg, Start date: 08/10/12 9:00:00, Duration: 30 day, Stop date: 09/08/12 17:00:00 PO No Longer Active [place] 08/10/2012 [facility] Flomax 0.4 mg, 1 cap, Route: P O, Drug form: CAP, After Breakfast, Dosing Weight 66.818, kg, Start date: 08/10/12 8:30:00, Duration: 30 day, Stop date: 09/08/12 8:30:00 PO No Longer Active Hin[facility] 08/10/2012 [facility] Lovenox 40 mg, 0.4 mL, Route: SUB-Q, Drug form: INJ, [id number], Dosing Weight 66.818, kg, Start date: 08/10/12 6:00:00, Duration: 30 day, Stop date: 09/08/12 6:00:00 SUB-Q No Longer Active [place] 08/10/2012 [facility] METRONIDazole (SCIP) 500 mg, 1 00 mL, Route: IVPB, Drug form: INJ, [id number], Dosing Weight 66.818, kg, Start date: 08/09/12 19:00:00, Duration: 3 doses or times, Stop date: 08/10/12 11:00:00 IVPB No Longer Active [place] 08/10/2012 [facility] Ofirmev 1,000 mg, Route: IV, D rug form: INJ, ONCE, Dosing Weight 66.818, kg, PRN Pain, for > or = 50 kg, Start date: 08/09/12 18:15:00 IV No Longer Active [place] 08/09/2012 [facility] [place] 10/325 oral tablet 1 tab , Route: PO, Drug Form: TAB, Dosing Weight 66.818, kg, Q6H, PRN Pain, Start date: 08/09/12 18:15:00, Duration: 30 day, Stop date: 09/08/12 18:14:00 PO No Longer Active [place] 08/09/2012 [facility] hydromorphone 0.5 mg, Route: I [employer] CHIL[employer]OD [employer]IN[employer], Q5Min, Dosing Weight 66.818, kg, PRN Pain Score 4-6, Start date: 08/09/12 18:15:00, Duration: 5 doses or times, Stop date: Limited # of times IVP No Longer Active [place] 08/09/2012 [facility] fentanyl 25 microgram, Route: IVP, Q5Min, Dosing Weight 66.818, kg, PRN Pain Score 4-6, Start date: 08/09/12 18:15:00, Duration: 4 doses or times, Stop date: Limited # of times IVP No Longer Active [place] 08/09/2012 [facility] flumazenil 0.2 mg, Route: IVP, PRN, Dosing Weight 66.818, kg, PRN Benzodiazepine Reversal, Initial dose, Start date: 08/09/12 18:15:00, Duration: 30 day, Stop date: 09/08/12 18:14:00 IVP No Longer Active [place] 08/09/2012 [facility] naloxone 0.04 mg, Route: IVP, Q2MIN, Dosing Weight 66.818, kg, PRN Narcotic Reversal, Start date: 08/09/12 18:15:00, Duration: 8 doses or times, Stop date: Limited # of times IVP No Longer Active [place] 08/09/2012 [facility] ondansetron 4 mg, Route: IVP, ONCE, Dosing Weight 66.818, kg, PRN Nausea & Vomiting, Start date: 08/09/12 18:15:00 IVP No Longer Active [place] 08/09/2012 [facility] ciprofloxacin (SCIP) 400 mg, 2 00 mL, Route: IVPB, Drug form: INJ, [id number], Dosing Weight 66.818, kg, Start date: 08/09/12 18:00:00, Duration: 2 doses or times, Stop date: 08/10/12 6:00:00 IVPB No Longer Active [place] 08/09/2012 [facility] Lactated Ringers Injection IV 1,000 mL 1,000 mL, Rate: 125 ml/hr, Infuse over: 8 hr, Route: IV, kg, Total Volume: 1,000, Start date: 08/09/12 17:24:00, Duration: 30 day, Stop date: 09/08/12 17:23:00 IV No Longer Active [place] 08/09/2012 [facility] acetaminophen-hydrocodone 325 mg-5 mg oral tablet 2 tab, Route: PO, Drug Form: TAB, Dosing Weight 66.818, kg, Q4H, PRN Pain Score 4-6, Start date: 08/09/12 17:24:00, Duration: 30 day, Stop date: 09/08/12 17:23:00 PO No Longer Active [place] [facility] ondansetron 4 mg, 2 mL, Route: IVP, Drug form: INJ, Q6H, Dosing Weight 66.818, kg, PRN Nausea & Vomiting, Start date: 08/09/12 17:24:00, Duration: 30 day, Stop date: 09/08/12 17:23:00 IVP No Longer Active [place] 08/09/2012 [facility] diphenhydrAMINE 25 mg, 1 tab, Route: PO, Drug form: TAB, Bedtime, Dosing Weight 66.818, kg, PRN Insomnia, Start date: 08/09/12 17:24:00, Duration: 30 day, Stop date: 09/08/12 17:23:00 PO No Longer Active [place] 08/09/2012 [facility] Lactated Ringers IV 1,000 mL 1 ,000 mL, Rate: 25 ml/hr, Infuse over: 40 hr, Route: IV, kg, Total Volume: 1,000, Start date: 08/09/12 15:19:00, Duration: 30 day, Stop date: 09/08/12 15:18:00 IV No Longer Active [place] 08/09/2012 [facility] Rocephin + Sodium Chloride 0.9% IV 100 mL 2 gm, Route: IVPB, ONCALL, Start date: 08/09/12 12:00:00, Duration: 2 day, Stop date: 08/11/12 11:59:00 IVPB No Longer Active [place] 08/09/2012 [facility] Paige Enema 133 ml, Route: PA, Drug Form: SUMAN, Dosing Weight 66.818, kg, ONCE, Start date: 08/08/12 15:57:00, Stop date: 08/08/12 15:57:00 PA No Longer Active [place] 08/08/2012 [facility] Paige Enema 133 ml, Route: PA, Drug Form: SUMAN, Dosing Weight 66.818, kg, ONCE, Start date: 08/08/12 7:05:00, Stop date: 08/08/12 7:05:00 PA No Longer Active [place] 08/08/2012 [facility] Ambien 10 mg, 1 tab, Route: PO , Drug form: TAB, Bedtime, Dosing Weight 66.818, kg, PRN as needed for sleep, Start date: 08/08/12 7:04:00, Duration: 30 day, Stop date: 09/07/12 7:03:00 PO No Longer Active [place] 08/08/2012 [facility] temazepam 15 mg, 1 cap, Route: PO, Drug form: CAP, Bedtime, Dosing Weight 66.818, kg, Start date: 08/07/12 21:00:00, Duration: 30 day, Stop date: 09/05/12 21:00:00 PO No Longer Active [place] 08/08/2012 [facility] Protonix 40 mg, 1 tab, Route: PO, Drug form: ECTAB, Before Dinner, Dosing Weight 66.364, kg, Start date: 08/07/12 16:30:00, Duration: 30 day, Stop date: 09/05/12 16:30:00 PO No Longer Active Rahim 08/07/2012 [facility] Pristiq 50mg po daily*Pts own med* Pristiq 50mg po daily*Pts own med*, Pristiq 50mg po daily*Pts own med*, Drug form: MISC, Route: PO, Daily, 08/07/12 9:00:00, Duration: 30 day, Stop date: 09/05/12 9:00:00 PO No Longer Active Rahim 08/07 [facility] Pristiq 50 mg oral tablet, extended release 1 tab, Route: PO, Drug form: ERTAB, Daily, Dosing Weight 66.364, kg, Start date: 08/07/12 9:00:00, Duration: 30 day, Stop date: 09/05/12 9:00:00 PO No Longer Active Rahim 08/07/2012 [facility] diazepam 10 mg, 1 tab, Route: PO, Drug form: TAB, QID, Dosing Weight 66.818, kg, Start date: 08/07/12 9:00:00, Duration: 30 day, Stop date: 09/05/12 21:00:00 PO No Longer Active Rahim 08/07/2012 [facility] Milk of Magnesia 60 ml, Route: PO, Drug Form: SUSP, Dosing Weight 66.818, kg, ONCE, PRN as needed for constipation, Start date: 08/07/12 7:13:00 PO No Longer Active Rahim 08/07/2012 [facility] Fleet Enema 133 ml, Route: PA, Drug Form: SUMAN, Dosing Weight 66.818, kg, ONCE, Start date: 08/07/12 7:12:00, Stop date: 08/07/12 7:12:00 PA No Longer Active Rahim 08/07/2012 [facility] Benadryl 25 mg, 0.5 mL, Route: IV, Drug form: INJ, Q4H, Dosing Weight 66.818, kg, PRN as needed for itching, Start date: 08/07/12 0:19:00, Duration: 30 day, Stop date: 09/06/12 0:18:00 IV No Longer Active Rahim 08/07/2012 [facility] hydromorphone 1.5 mg, 1.5 mL, Route: IV, Drug form: SOLN, Q3H, Dosing Weight 66.818, kg, PRN Pain Score 6-10, Start date: 08/06/12 17:42:00, Duration: 30 day, Stop date: 09/05/12 17:41:00 IV No Longer Active Rahim 08/06/2012 [facility] Protonix 40 mg, Route: IVP, Dr ug form: INJ, Before Dinner, Dosing Weight 66.364, kg, Start date: 08/06/12 16:30:00, Duration: 30 day, Stop date: 09/04/12 16:30:00 IVP No Longer Active [facility] 08/06/2012 [facility] Pristiq 50 mg oral tablet, extended release 50 mg, 1 tab, PO, Daily, 30 tab, Substitution Allowed, ERTAB PO Active Rapam 08/06/2012 [facility] Levaquin 500 mg, 100 mL, Route : IVPB, Drug form: INJ, [id number], Dosing Weight 66.364, kg, Start date: 08/06/12 15:00:00, Duration: 30 day, Stop date: 09/04/12 15:00:00 [facility]2012 [facility] enoxaparin 40 mg, 0.4 mL, Rout e: SUB-Q, Drug form: INJ, [id number], Dosing Weight 66.364, kg, Start date: 08/06/12 15:00:00, Duration: 30 day, Stop date: 09/04/12 15:00:00 SUB-Q No Longer Active [facility] 08/06/2012 [facility] Restoril 30 mg, 2 cap, Route: PO, Drug form: CAP, Bedtime, Dosing Weight 66.364, kg, PRN Sleep, Start date: 08/06/12 14:15:00, Duration: 30 day, Stop date: 09/05/12 14:14:00 PO No Longer Active [facility] 08/06/2012 [facility] Phenergan + Sodium Chloride 0.9% IV 50 mL 12.5 mg, 0.5 mL, Route: IVPB, Q4H, Dosing Weight 66.364, kg, PRN Nausea & Vomiting, Start date: 08/06/12 14:14:00, Duration: 30 day, Stop date: 09/05/12 14:13:00 IVPB No Longer Active [facility] 08/06 [facility] Dilaudid 1 mg, 1 mL, Route: IV , Drug form: SOLN, Q3H, Dosing Weight 66.364, kg, PRN Pain, Start date: 08/06/12 14:13:00, Duration: 30 day, Stop date: 09/05/12 14:12:00 IV No Longer Active [facility] 08/06/2012 [facility] D5LR 1,000 mL 1,000 mL, Rate: 100 ml/hr, Infuse over: 10 hr, Route: IV, kg, Total Volume: 1,000, Start date: 08/06/12 14:08:00, Duration: 30 day, Stop date: 09/05/12 14:07:00 IV No Longer Active [facility] 08/06/2012 [facility] Bentyl 10 mg, 1 cap, Route: PO , Drug form: CAP, Q6H, Dosing Weight 66.364, kg, PRN For Pain, Start date: 07/19/12 14:23:00, Duration: 30 day, Stop date: 08/18/12 14:22:00 PO No Longer Active [facility] 07/19/2012 [facility] Fioricet 1 tab, Route: PO, David g Form: TAB, Dosing Weight 66.364, kg, Q4H, PRN Headache, Start date: 07/19/12 7:23:00, Duration: 30 day, Stop date: 08/18/12 7:22:00 PO [facility] 07/19[facility]2012 [facility] zolpidem 20 mg, 2 tab, Route: PO, Drug form: TAB, Bedtime, Dosing Weight 66.364, kg, Start date: 07/18/12 21:00:00, Duration: 30 day, Stop date: 08/16/12 21:00:00 PO No Longer Active [facility] 07/19/2012 [facility] citalopram 10 mg, 1 tab, Route : PO, Drug form: TAB, Bedtime, Dosing Weight 66.364, kg, Start date: 07/18/12 21:00:00, Duration: 30 day, Stop date: 08/16/12 21:00:00 PO No Longer Active [facility] 07/19/2012 [facility] influenza virus vaccine, inactivated 0.5 ml, Route: IM, Drug Form: INJ, Start date: 07/18/12 13:30:00, Stop date: 07/18/12 13:30:00 Inactive [facility] 07/18/2012 [facility] Phenergan + Sodium Chloride 0.9% IV 50 mL 12.5 mg, 0.5 mL, Route: IVPB, ONCE, Dosing Weight 66.364, kg, Start date: 07/18/12 9:49:00, Stop date: 07/18/12 9:49:00 IVPB No Longer Active [facility] 07/18/2012 [facility] Valium 10 mg, 2 tab, Route: PO , Drug form: TAB, QID, Start date: 07/18/12 9:00:00, Duration: 30 day, Stop date: 08/16/12 21:00:00 PO No Longer Active [facility] 07/18 [facility] diazepam 10 mg, Route: PO, David g form: TAB, QID, Dosing Weight 66.364, kg, Start date: 07/18/12 9:00:00, Duration: 30 day, Stop date: 08/16/12 21:00:00 PO No Longer Active [facility] 07/18/2012 [facility] influenza virus vaccine, inactivated 0.5 ml, Route: IM, Drug Form: INJ, Daily, Start date: 07/18/12 9:00:00, Duration: 1 doses or times, Stop date: 07/18/12 9:00:00 IM No Longer Active [facility] 07/18/2012 [facility] Flomax 0.4 mg, 1 cap, Route: P O, Drug form: CAP, After Breakfast, Dosing Weight 66.364, kg, Start date: 07/18/12 8:30:00, Duration: 30 day, Stop date: 08/16/12 8:30:00 PO No Longer Active [facility] 07/18/2012 [facility] D5W 1/2NS + KCL 20mEq/L 1000ml (Premix) 1,000 mL 1,000 mL, Rate: 150 ml/hr, Infuse over: 6.7 hr, Route: IV, kg, Total Volume: 1,000, Start date: 07/18/12 6:37:00, Duration: 30 day, Stop date: 08/17/12 6:36:00 IV No Longer Active [facility] 07/18 [facility] diazepam 10 mg, 2 tab, Route: PO, Drug form: TAB, ONCE, Dosing Weight 66.364, kg, PRN Seizure, Start date: 07/18/12 6:10:00 PO No Longer Active Rahim 07/18/2012 [facility] diazepam 10 mg, 2 tab, Route: PO, Drug form: TAB, QID, Dosing Weight 66.364, kg, PRN, Start date: 07/18/12 5:26:00, Duration: 30 day, Stop date: 08/17/12 5:25:00, QID PO No Longer Active [facility] 07/18/2012 [facility] Dilaudid 1.5 mg, 1.5 mL, Route : IV, Drug form: SOLN, Q4H, Dosing Weight 66.364, kg, PRN Pain, Start date: 07/18/12 0:29:00, Stop date: 08/17/12 0:28:00 IV No Longer Active [facility] 07/18/2012 [facility] morphine Sulfate 2 mg, 1 mL, R oute: IVP, Drug form: INJ, Q4H, Dosing Weight 66.364, kg, PRN Pain Score 4-6, Start date: 07/17/12 20:23:00, Duration: 30 day, Stop date: 08/16/12 20:22:00 IVP No Longer Active [facility] 07/18/2012 [facility] Saline Flush 0.9% 5 ml, Route: IVP, Drug Form: INJ, Dosing Weight 66.364, kg, PRN, PRN Line Flush, Start date: 07/17/12 20:23:00, Duration: 30 day, Stop date: 08/16/12 21:22:00 IVP No Longer Active [facility] 07/18/2012 [facility] citalopram 10 mg oral tablet 1 0 mg, 1 tab, PO, Bedtime, 30 tab, Substitution Allowed, TAB PO Active [facility] 07/18/2012 [facility] Flomax 0.4 mg oral capsule 0.4 mg, 1 cap, PO, After Breakfast, 30 cap, Substitution Allowed, CAP PO Active [facility] 07/18/2012 [facility] Bactrim DS oral tablet 1 tab, PO, BID, 6 tab, Substitution Allowed, Maintenance PO Active 07/18/2012 [facility] Benadryl 12.5 mg, Route: IVP, ONCE, Dosing Weight 66.364, kg, Priority: STAT, Start date: 07/17/12 18:05:00, Stop date: 07/17/12 18:05:00 IVP No Longer Active [facility] 07/18/2012 [facility] Zofran 4 mg, Route: IVP, Drug form: INJ, ONCE, Dosing Weight 66.364, kg, PRN Nausea, Priority: STAT, Start date: 07/17/12 17:47:00 IVP No Longer Active [facility] 09/2012 [facility] morphine Sulfate 4 mg, Route: IVP, ONCE, Dosing Weight 66.364, kg, Start date: 07/17/12 17:47:00, Stop date: 07/17/12 17:47:00 IVP No Longer Active [facility] 09/2012 [facility] Saline Flush 0.9% 5 ml, Route: IVP, Drug Form: INJ, Dosing Weight 66.364, kg, PRN, PRN Line Flush, Start date: 07/17/12 15:00:00, Duration: 30 day, Stop date: 08/16/12 15:59:00 IVP No Longer Active [facility] 07/17/2012 [facility] LORAzepam 1 mg, 0.5 mL, Route: IVP, Drug form: INJ, ONCE, Dosing Weight 66.364, kg, Priority: STAT, Start date: 07/17/12 15:00:00, Stop date: 07/17/12 15:00:00 IVP No Longer Active [facility] 07/17/2012 [facility] Ativan 1 mg, Route: IVP, ONCE, Dosing Weight 66.364, kg, Priority: STAT, Start date: 07/16/12 2:47:00, Stop date: 07/16/12 2:47:00 IVP No Longer Active [facility] 08/2012 [facility] pantoprazole 40 mg, Route: IVP , ONCE, Dosing Weight 66.364, kg, For IV push reconstitute with 10 ml 0.9% sodium chloride and push over at least 3 minutes, Priority: STAT, Start date: 07/15/12 23:31:00, Stop date: 07/15/12 23:31:00 IVP No Longer Active [facility] 07/16/2012 [facility] Sodium Chloride 0.9% (Bolus) IV 500 mL 500 mL, Rate: 1,000 ml/hr, Infuse over: 30 minutes, Route: IV, kg, Total Volume: 500, Priority: STAT, Start date: 07/15/12 23:31:00, Duration: 1 doses or times, Stop date: 07/16/12 0:00:00 IV No Longer Active [facility] 07/16/2012 [facility] Saline Flush 0.9% 5 mL, Route: IVP, Drug Form: INJ, Dosing Weight 66.364, kg, PRN, PRN Line Flush, Start date: 07/15/12 23:31:00, Duration: 24 hr, Stop date: 07/16/12 23:30:00 IVP No Longer Active [facility] 07/16/2012 [facility] ondansetron 4 mg, Route: IVP, ONCE, Dosing Weight 66.364, kg, Priority: STAT, Start date: 07/15/12 23:31:00, Stop date: 07/15/12 23:31:00 [facility] hydromorphone 1 mg, Route: IVP , ONCE, Dosing Weight 66.364, kg, Priority: STAT, Start date: 07/15/12 23:31:00, Stop date: 07/15/12 23:31:00 [facility] levofloxacin 500 mg/100 mL intravenous solution 500 mg, 100 mL, IVPB, [id number], 7 mL, Substitution Allowed, INJ IVPB Active [facility] 07/11/2012 [facility] [place] 5/325 oral tablet 1 tab, PO, Q4H, PRN, 12 tab, for pain, Substitution Allowed, Maintenance, TAB PO Active [facility] 07/11/2012 [facility] [place] 10/325 oral tablet 1 tab , Route: PO, Drug Form: TAB, Dosing Weight 66.818, kg, Q6H, PRN Pain, Start date: 07/11/12 7:18:00, Duration: 30 day, Stop date: 08/10/12 7:17:00 PO No Longer Active [facility] 07/11/2012 [facility] Protonix 40 mg, 1 tab, Route: PO, Drug form: ECTAB, Before Dinner, Dosing Weight 59.091, kg, Start date: 07/10/12 16:30:00, Duration: 30 day, Stop date: 08/08/12 16:30:00 PO No Longer Active [facility] 07/10/2012 [facility] amitriptyline 50 mg, 1 tab, Ro marita: PO, Drug form: TAB, Bedtime, Dosing Weight 66.818, kg, Start date: 07/09/12 21:00:00, Duration: 30 day, Stop date: 08/07/12 21:00:00 PO No Longer Active [facility] 07/10/2012 [facility] Ambien 10 mg, 1 tab, Route: PO , Drug form: TAB, Bedtime, Dosing Weight 66.818, kg, PRN Insomnia, Start date: 07/09/12 17:41:00, Duration: 30 day, Stop date: 08/08/12 17:40:00 PO No Longer Active [facility] 07/09/2012 [facility] Protonix 40 mg, Route: IVP, Dr ug form: INJ, Before Dinner, Dosing Weight 59.091, kg, Start date: 07/09/12 16:30:00, Duration: 30 day, Stop date: 08/07/12 16:30:00 IVP No Longer Active [facility] 07/09/2012 [facility] diazepam 10 mg, 2 tab, Route: PO, Drug form: TAB, Q6H, Dosing Weight 66.818, kg, Start date: 07/09/12 14:57:00, Stop date: 08/08/12 10:00:00 PO No Longer Active [facility] 07/09/2012 [facility] enoxaparin 40 mg, 0.4 mL, Rout e: SUB-Q, Drug form: INJ, [id number], Dosing Weight 59.091, kg, Start date: 07/09/12 12:00:00, Duration: 30 day, Stop date: 08/07/12 13:00:00 SUB-Q No Longer Active [facility] 07/09/2012 [facility] Levaquin 500 mg, 100 mL, Route : IVPB, Drug form: INJ, [id number], Dosing Weight 59.091, kg, Start date: 07/09/12 12:00:00, Duration: 30 day, Stop date: 08/07/12 13:00:00 IVPB No Longer Active [facility] 07/09/2012 [facility] Phenergan + Sodium Chloride 0.9% IV 50 mL 12.5 mg, 0.5 mL, Route: IVPB, Q4H, Dosing Weight 59.091, kg, PRN Nausea & Vomiting, Start date: 07/09/12 11:12:00, Stop date: 08/08/12 11:11:00 IVPB No Longer Active [facility] 07/09/2012 [facility] Dilaudid 1 mg, 1 mL, Route: IV , Drug form: SOLN, Q3H, Dosing Weight 59.091, kg, PRN Pain, Start date: 07/09/12 11:12:00, Duration: 30 day, Stop date: 08/08/12 11:11:00 IV No Longer Active Rahim 07/09/2012 [facility] acetaminophen 650 mg, 2 tab, R oute: PO, Drug form: TAB, Q4H, Dosing Weight 59.091, kg, PRN Pain/Fever, Start date: 07/09/12 11:08:00, Duration: 30 day, Stop date: 08/08/12 11:07:00 PO No Longer Active Rahim 07/09/2012 [facility] NS + KCL 20mEq/L 1000ml (Premix) 1,000 mL 1,000 mL, Rate: 100 ml/hr, Infuse over: 10 hr, Route: IV, kg, Total Volume: 1,000, Start date: 07/09/12 11:08:00, Duration: 30 day, Stop date: 08/08/12 11:07:00 IV No Longer Active [facility] 07/09 [facility] Saline Flush 0.9% 5 ml, Route: IVP, Drug Form: INJ, Dosing Weight 59.091, kg, PRN, PRN Line Flush, Start date: 07/09/12 11:08:00, Duration: 30 day, Stop date: 08/08/12 12:07:00 IVP No Longer Active [facility] 07/09/2012 [facility] temazepam 15 mg, 1 cap, Route: PO, Drug form: CAP, Bedtime, Dosing Weight 59.091, kg, PRN Insomnia, Start date: 07/09/12 11:08:00, Duration: 30 day, Stop date: 08/08/12 11:07:00 PO No Longer Active [facility]im 07/09/2012 [facility] docusate 100 mg, 1 cap, Route: PO, Drug form: CAP, BID, Dosing Weight 59.091, kg, PRN Constipation, Start date: 07/09/12 11:08:00, Duration: 30 day, Stop date: 08/08/12 11:07:00 PO No Longer Active [facility] 07/09/2012 [facility] [place] 5/325 oral tablet 1 tab, PO, Q4H, PRN, 12 tab, for pain, Substitution Allowed, Maintenance, TAB PO On Hold Rah im 07/08/2012 [facility] Sodium Chloride 0.9% (Bolus) IV 500 mL, Route: IV, Dosing Weight 59.091, kg, ONCE, Bolus Dose - infuse over 1 hr, STAT, Start date: 07/08/12 2:00:00, Stop date: 07/08/12 2:00:00 IV No Longer Active [facility] 07/08/2012 [facility] Zofran 4 mg, Route: IVP, Drug form: INJ, ONCE, Dosing Weight 59.091, kg, PRN Nausea, Priority: STAT, Start date: 07/08/12 2:00:00 IVP No Longer Active [facility] 06/16 [facility] morphine Sulfate 4 mg, Route: IV, ONCE, Dosing Weight 59.091, kg, Start date: 07/08/12 1:59:00, Stop date: 07/08/12 1:59:00 IV No Longer Active [facility] 06/16 [facility] Ultram 50 mg oral tablet 50 mg , 1 tab, PO, Q4H, PRN, 12 tab, pain, Substitution Allowed PO Active Magdi pradhan 07/07/2012 [facility] Benadryl 25 mg, Route: PO, David g form: CAP, ONCE, Dosing Weight 66.364, kg, Priority: STAT, Start date: 07/07/12 1:11:00, Stop date: 07/07/12 1:11:00 PO No Longer Active [facility] 07/07/2012 [facility] ondansetron 4 mg, 2 mL, Route: IVP, Drug form: INJ, ONCE, Dosing Weight 66.364, kg, Priority: STAT, Start date: 07/07/12 0:05:00, Stop date: 07/07/12 0:05:00 IVP No Longer Active [facility] 07/07/2012 [facility] Sodium Chloride 0.9% (Bolus) IV 500 mL, 1000 ml/hr, Route: IV, Drug Form: INJ, Dosing Weight 66.364, kg, ONCE, Bolus at 1,000 ml/hr, STAT, Start date: 07/07/12 0:05:00, Stop date: 07/07/12 0:05:00 IV No Longer Active [facility] 07/07/2012 [facility] Saline Flush 0.9% 5 mL, Route: IVP, Drug Form: INJ, Dosing Weight 66.364, kg, PRN, PRN Line Flush, Start date: 07/07/12 0:05:00, Duration: 24 hr, Stop date: 07/08/12 0:04:00 IVP No Longer Active [facility] 07/07/2012 [facility] morphine Sulfate 4 mg, 2 mL, R oute: IVP, Drug form: INJ, ONCE, Dosing Weight 66.364, kg, Priority: STAT, Start date: 07/07/12 0:05:00, Stop date: 07/07/12 0:05:00 IVP No Longer Active [facility] 07/07/2012 [facility] droperidol 1.25 mg, Route: IVP , ONCE, Dosing Weight 65, kg, PRN Nausea & Vomiting, Start date: 05/31/12 9:20:00 IVP No Longer Active [facility] 05/31/2012 [facility] Reglan 10 mg, Route: IVP, ONCE , Dosing Weight 65, kg, Priority: STAT, Start date: 05/31/12 8:31:00, Stop date: 05/31/12 8:31:00 IVP No Longer Active [facility] Zofran 4 mg, 2 mL, Route: IVP, Drug form: INJ, ONCE, Dosing Weight 65, kg, Priority: STAT, Start date: 05/31/12 7:57:00, Stop date: 05/31/12 7:57:00 IVP No Longer Active [facility] 05/31/2012 [facility] Sodium Chloride 0.9% (Bolus) IV 1,000 mL, 1000 ml/hr, Route: IV, Drug Form: INJ, Dosing Weight 65, kg, ONCE, Bolus Dose. Infuse over 1 hour., STAT, Start date: 05/31/12 7:57:00, Stop date: 05/31/12 7:57:00 IV No Longer Active [facility] Saline Flush 0.9% 5 ml, Route: IVP, Drug Form: INJ, Dosing Weight 65, kg, PRN, PRN Line Flush, Start date: 05/31/12 7:57:00, Duration: 30 day, Stop date: 06/30/12 7:56:00 IVP No Longer Active Herminia 05/31/2012 [facility] Esgic 1 tab, Route: PO, Drug F orm: TAB, ONCE, Start date: 04/08/12 17:54:00, Stop date: 04/08/12 17:54:00 PO No Longer Active BlairHaley 04/08/2012 [facility] Midrin 1 tab, Route: PO, Drug Form: CAP, Dosing Weight 61.818, kg, ONCE, Start date: 04/08/12 17:31:00, Stop date: 04/08/12 17:31:00 PO No Longer Active Lon 04/08/2012 [facility] Zofran ODT 4 mg oral tablet, disintegrating 4 mg, 1 tab, PO, BID, PRN, Dissolve tab under tongue, 10 tab, Nausea and Vomiting, Substitution AllowedDissolve tab under tongue PO Active Rodrick Haley 04/08/2012 [facility] Zofran 4 mg, Route: IVP, Drug form: INJ, ONCE, Dosing Weight 61.818, kg, Priority: STAT, Start date: 04/08/12 17:04:00, Stop date: 04/08/12 17:04:00 IVP No Longer Active Lon 04/08/2012 [facility] Motrin 800 mg, Route: PO, Drug form: TAB, ONCE, Dosing Weight 61.818, kg, Priority: STAT, Start date: 04/08/12 16:27:00, Stop date: 04/08/12 16:27:00 PO No Longer Active Lon 04/08/2012 [facility] EpiPen Auto-Injector 0.3 mg injectable kit 0.3 mg, IM, ONCE, 1 kit, Substitution Allowed, SOLN IM Active [facility] 02/17/2012 [facility] epinephrine 1 mg/mL injectable solution 0.3 mg, Route: IM, ONCE, Dosing Weight 61.818, kg, Priority: STAT, Start date: 02/16/12 16:21:00, Stop date: 02/16/12 16:21:00 IM No Longer Active [facility] 02/16/2012 [facility] diphenhydrAMINE 25 mg, Route: IVP, ONCE, Dosing Weight 61.818, kg, Priority: STAT, Start date: 02/16/12 16:13:00, Stop date: 02/16/12 16:13:00 IVP No Longer Active [facility] 02/16/2012 [facility] LORAzepam 1 mg, Route: PO, ONC E, Dosing Weight 61.818, kg, Priority: STAT, Start date: 02/16/12 16:13:00, Stop date: 02/16/12 16:13:00 PO No Longer Active [facility] 08/2011 [facility] epinephrine topical 1:1000 solution 0.3 mL, Route: IM, ONCE, Start date: 02/16/12 16:13:00, Stop date: 02/16/12 16:13:00 IM No Longer Active [facility] 02/16/2012 [facility] famotidine 20 mg, Route: IVP, ONCE, Dosing Weight 61.818, kg, Priority: STAT, Start date: 02/16/12 16:13:00, Stop date: 02/16/12 16:13:00 IVP No Longer Active [facility] 02/16/2012 [facility] NS 500 mL 500 mL, Rate: 1,000 ml/hr, Infuse over: 0.5 hr, Route: IV, Dosing Weight 61.818 kg, Total Volume: 500, Start date: 02/16/12 16:12:00, Duration: 1 doses or times, Stop date: 02/16/12 16:41:00, Bolus D oseBolus Dose IV No Longer Active [facility] 02/16/2012 [facility] Toradol 30 mg/mL injectable solution 30 mg, Route: IV, Drug form: INJ, ONCE, Dosing Weight 62.727, kg, Priority: STAT, Start date: 01/25/12 0:13:00, Stop date: 01/25/12 0:13:00 IV No Longer Active Souman 01/25/2012 [facility] Sodium Chloride 0.9% (Bolus) IV 1000 mL 1,000 mL, Rate: 1,000 ml/hr, Infuse over: 1 hr, Route: IV, kg, Total Volume: 1,000, Bolus Dose, Priority: STAT, Start date: 01/24/12 21:58:00, Duration: 1 doses or times, Stop date: 01/24/12 22:57:00 IV No Longer Active Souman 01/25/2012 [facility] MiraLax 17 gm, 1 pkt, Route: P O, Drug form: PWDR, BID, kg, Start date: 01/02/12 17:00:00, Duration: 30 day, Stop date: 02/01/12 9:00:00 PO No Longer Active Jim 01/02/2012 [facility] vitamin A & D topical 1 appl, Route: TOP, QID, Drug form: OINT, Start date: 01/01/12 21:00:00, Duration: 30 day, Stop date: 01/31/12 17:00:00 TOP No Longer Active Rahim 01/02/2012 [facility] GoLYTELY 4,000 ml, Route: PO, Drug Form: PDR/REC, kg, ONCE, Start date: 01/01/12 17:17:00, Duration: 1 doses or times, Stop date: 01/01/12 17:17:00 PO No Longer Active Jim 01/01/2012 [facility] Zofran 4 mg, 2 mL, Route: IVP, Drug form: INJ, Q6H, kg, PRN Nausea, Start date: 01/01/12 14:09:00, Duration: 30 day, Stop date: 01/31/12 14:08:00 IVP No Longer Active Jim 01/01/2012 [facility] Ativan 1 mg, 0.5 mL, Route: IV , Drug form: INJ, Q4H, kg, PRN Anxiety, Priority: NOW, Start date: 01/01/12 11:02:00, Duration: 30 day, Stop date: 01/31/12 11:01:00 IV No Longer Active Rahim 01/01/2012 [facility] Pristiq 50 mg oral tablet, extended release 50 mg, 1 tab, Route: PO, Drug form: ERTAB, Daily, Dosing Weight 66.818, kg, Start date: 01/01/12 9:00:00, Duration: 30 day, Stop date: 01/30/12 9:00:00 PO No Longer Active Rahim 01/01/2012 [facility] Protonix 40 mg, Route: IVP, Dr antonio form: INJ, Daily, kg, Patient is NPO, Start date: 01/01/12 9:00:00, Duration: 30 day, Stop date: 01/30/12 9:00:00 IVP No Longer Active [facility] 01/01/2012 [facility] Pt's own med DESVENLAFAXINE Pt's own med Pt's own med DESVENLAFAXINE Pt's own med, 50 mg, Drug form: MISC, Route: PO, Daily, 01/01/12 9:00:00, Duration: 30 day, Stop date: 01/30/12 9:00:00 PO No Longer Active [facility]am 12/31 [facility] Saline Flush 0.9% 5 ml, Route: IVP, Drug Form: INJ, kg, PRN, PRN Line Flush, Start date: 01/01/12 8:33:00, Duration: 30 day, Stop date: 01/31/12 8:32:00 IVP No Longer Active [facility] 01/01/2012 [facility] Sodium Chloride 0.45% IV 1,000 mL 1,000 mL, Rate: 125 ml/hr, Infuse over: 8 hr, Route: IV, Dosing Weight 66.818 kg, Total Volume: 1,000, Start date: 01/01/12 8:33:00, Duration: 30 day, Stop date: 01/31/12 8:32:00 IV No Longer Active [facility] 01/01/2012 [facility] ondansetron 4 mg, 2 mL, Route: IVP, Drug form: INJ, ONCE, kg, PRN Nausea & Vomiting, Start date: 01/01/12 8:33:00 IVP No Longer Active [facility] 01/01/2012 [facility] Esgic 1 tab, Route: PO, Drug F orm: TAB, Q4H, PRN Other - See Comment, Start date: 01/01/12 0:36:00, Duration: 30 day, Stop date: 01/31/12 0:35:00 [facility]2012 [facility] temazepam 15 mg, 1 cap, Route: PO, Drug form: CAP, Bedtime, kg, Start date: 12/31/11 23:59:00, Duration: 30 day, Stop date: 01/30/12 21:00:00 PO No Longer Active Rapam 01/01/2012 [facility] nitroglycerin 0.4 mg sublingual tablet 0.4 mg, 1 tab, Route: SL, Drug form: TAB, Q5Min, PRN Chest Pain, Start date: 12/31/11 23:44:00, Duration: 30 day, Stop date: 01/30/12 23:43:00 SL No Longer Active Rapam 01/01/2012 [facility] atropine 0.5 mg, 5 mL, Route: IVP, Drug form: INJ, PRN, PRN Bradycardia, Start date: 12/31/11 23:43:00, Duration: 30 day, Stop date: 01/30/12 23:42:00 IVP No Longer Active Rapam 01/01/2012 [facility] trazodone 150 mg, 3 tab, Route : PO, Drug form: TAB, Bedtime, kg, PRN Sleep, Start date: 12/31/11 21:29:00, Duration: 30 day, Stop date: 01/30/12 21:28:00 PO No Longer Active [facility] 01/01/2012 [facility] NS + KCL 20mEq/L 1000ml (Premix) 1,000 mL 1,000 mL, Rate: 125 ml/hr, Infuse over: 8 hr, Route: IV, Dosing Weight 66.818 kg, Total Volume: 1,000, Start date: 12/31/11 21:27:00, Duration: 30 day, Stop date: 01/30/12 21:26:00 IV No Longer Active [facility] 01/01/2012 [facility] trazodone 150 mg oral tablet 1 50 mg, 1 tab, PO, Bedtime, PRN, 30 tab, insomnia (for waking up after taking other sleep meds), Substitution Allowed, TAB PO Active [facility] 01/01/2012 [facility] temazepam 15 mg oral capsule 1 5 mg, 1 cap, PO, Bedtime, Substitution Allowed, with zolpidem for PTSDwith zolpidem for PTSD PO Active [facility] 01/01/2012 [facility] zolpidem 10 mg oral tablet 20 mg, 2 tab, PO, Bedtime, Substitution Allowed, with temazepam for PTSDwith temazepam for PTSD PO Active 01/01/2012 [facility] Fioricet 1 tab, Route: PO, David g Form: TAB, kg, ONCE, Start date: 12/31/11 19:57:00, Stop date: 12/31/11 19:57:00 PO No Longer Active [facility] 01/01/2012 [facility] Zofran 4 mg, Route: PO, ONCE, Dosing Weight 66.818, kg, Start date: 12/31/11 19:27:00, Stop date: 12/31/11 19:27:00 PO No Longer Active [facility] 01/01/2012 [facility] acetaminophen 975 mg, 3 tab, R oute: PO, Drug form: TAB, ONCE, kg, Priority: STAT, Start date: 12/31/11 18:21:00, Stop date: 12/31/11 18:21:00 PO No Longer Active [facility] 12/31/2011 [facility] Sodium Chloride 0.9% (Bolus) IV 1,000 mL 1,000 mL, Rate: 1,000 ml/hr, Infuse over: 1 hr, Route: IV, Dosing Weight 66.818 kg, Total Volume: 1,000, Bolus Dose, Priority: STAT, Start date: 12/31/11 18:20:00, Duration: 1 doses or times, Stop date: 12/31/11 19:19:00 IV No Longer Active [facility] 12/31/2011 [facility] Zofran 4 mg, Route: IVP, Drug form: INJ, ONCE, Dosing Weight 66.875, kg, Priority: STAT, Start date: 12/31/11 0:45:00, Stop date: 12/31/11 0:45:00 IVP No Longer Active [facility] 12/31/2011 [facility] morphine Sulfate 2 mg, Route: IVP, ONCE, Dosing Weight 66.875, kg, Start date: 12/31/11 0:13:00, Stop date: 12/31/11 0:13:00 IVP No Longer Active [facility] 12/13 [facility] Saline Flush 0.9% 5 ml, Route: IVP, Drug Form: INJ, kg, PRN, PRN Line Flush, Start date: 12/30/11 23:07:00, Duration: 24 hr, Stop date: 12/31/11 23:06:00 IVP No Longer Active Mauriciorehan 12/31/2011 [facility] NS (Bolus) IV 1,000 mL 1,000 m L, Rate: 1,000 ml/hr, Infuse over: 1 hr, Route: IV, Dosing Weight 63 kg, Total Volume: 1,000, Priority: STAT, Start date: 10/16/11 1:26:00, Duration: 1 doses or times, Stop date: 10/16/11 2:25:00, Bolus DoseBolus Dose IV No Longer Active Biswas 10/16/2011 [facility] Fioricet with Codeine oral capsule 2 cap, PO, Q4H, PRN, 20 cap, for headache, Substitution Allowed, Maintenance, CAP PO Active [facility] 10/10/2011 [facility] Pristiq 50 mg oral tablet, extended release 50 mg, 1 tab, Route: PO, Drug form: ERTAB, Daily, Start date: 10/10/11 9:00:00, Duration: 30 day, Stop date: 11/08/11 9:00:00 PO No Longer Active [facility] 10/10/2011 [facility] Pristiq 50mg Pristiq 50mg, (pt 's own med), Drug form: MISC, Route: PO, Daily, 10/10/11 9:00:00, Duration: 30 day, Stop date: 11/08/11 9:00:00 PO No Longer Active [facility] 10/10/2011 [facility] Benadryl 25 mg, 0.5 mL, Route: IV, Drug form: INJ, QID, PRN as needed for allergy symptoms, Start date: 10/09/11 19:07:00, Duration: 30 day, Stop date: 11/08/11 19:06:00 IV No Longer Active [facility] 10/10/2011 [facility] diazepam 10 mg, 1 tab, Route: PO, Drug form: TAB, QID, Start date: 10/09/11 17:00:00, Duration: 30 day, Stop date: 11/08/11 13:00:00 PO No Longer Active [facility] 2011 [facility] Fioricet with Codeine Fioricet with Codeine, (pt's own med), Drug form: MISC, Route: PO, Q4H, PRN Pain, 10/09/11 16:33:00, Duration: 30 day, Stop date: 11/08/11 16:32:00 PO No Longer Active Fang 10/09/2011 [facility] Fioricet 1 tab, Route: PO, David g Form: TAB, Q4H, PRN Headache, Start date: 10/09/11 16:29:00, Duration: 30 day, Stop date: 11/08/11 16:28:00 PO No Longer Active Fang 10/09/2011 [facility] Fioricet with Codeine 1 cap, R oute: PO, Drug Form: CAP, Q4H, PRN Headache, Start date: 10/09/11 16:28:00, Duration: 30 day, Stop date: 11/08/11 16:27:00 PO No Longer Active Fan 10/09/2011 [facility] Ambien 20 mg, 2 tab, Route: PO , Drug form: TAB, Bedtime, PRN Sleep, Start date: 10/09/11 15:54:00, Duration: 30 day, Stop date: 11/08/11 15:53:00 PO No Longer Active Fan 10/09/2011 [facility] Motrin 600 mg, 3 tab, Route: P O, Drug form: TAB, QID, PRN Pain, Start date: 10/09/11 15:27:00, Duration: 30 day, Stop date: 11/08/11 15:26:00 PO No Longer Active Fan 10/09/2011 [facility] trazodone 50 mg oral tablet 50 mg, 1 tab, Route: PO, Drug form: TAB, Bedtime, PRN Anxiety, Start date: 10/09/11 15:26:00, Duration: 30 day, Stop date: 11/08/11 15:25:00 PO No Longer Active Fang 10/09/2011 [facility] Ambien CR 25 mg, Route: PO, Dr ug form: ERTAB, Bedtime, PRN as needed for sleep, Start date: 10/09/11 15:26:00, Duration: 30 day, Stop date: 11/08/11 15:25:00 PO No Longer Active Fang 10/09/2011 [facility] Tylenol 650 mg, 2 tab, Route: PO, Drug form: TAB, Q6H, PRN Pain, Start date: 10/09/11 12:08:00, Duration: 30 day, Stop date: 11/08/11 12:07:00 PO No Longer Active [facility] 10/09/2011 [facility] Saline Flush 0.9% 5 ml, Route: IVP, Drug Form: INJ, Q12H, Start date: 10/09/11 9:00:00, Duration: 30 day, Stop date: 11/07/11 21:00:00 IVP No Longer Active [facility] 10/09/2011 [facility] Benadryl 50 mg, Route: IVP, ON CE, benadryl 50mg ivp x1 dose now, Start date: 10/09/11 5:50:00, Stop date: 10/09/11 5:50:00 IVP No Longer Active [facility] 2011 [facility] Benadryl 50 mg, 1 mL, Route: I [employer]OD [employer], Drug form: INJ, ONCE, PRN Itching, Start date: 10/09/11 5:46:00 IVP No Longer Active [facility] 10/09/2011 [facility] trazodone 50 mg oral tablet 50 mg, 1 tab, PO, PRN, as needed for insomnia if ambien does not work, Substitution Allowed, TAB PO Active [facility] 10/09/2011 [facility] Ambien CR 12.5 mg oral tablet, extended release 25 mg, 2 tab, PO, Bedtime, PRN, for sleep, Substitution Allowed, ERTAB PO Active [facility] 10/09/2011 [facility] nitroglycerin 0.4 mg sublingual tablet 0.4 mg, 1 tab, Route: SL, Drug form: TAB, Q5Min, PRN Chest Pain, Start date: 10/09/11 4:49:00, Duration: 30 day, Stop date: 11/08/11 4:48:00 SL No Longer Active [facility] 10/09/2011 [facility] atropine 0.5 mg, 5 mL, Route: IVP, Drug form: INJ, PRN, PRN Bradycardia, Start date: 10/09/11 4:48:00, Duration: 30 day, Stop date: 11/08/11 4:47:00 IVP No Longer Active [facility] 10/09/2011 [facility] Saline Flush 0.9% 5 ml, Route: IVP, Drug Form: INJ, PRN, PRN Line Flush, Start date: 10/09/11 4:44:00, Duration: 30 day, Stop date: 11/08/11 4:43:00 IVP No Longer Active Fan 10/09/2011 [facility] acetaminophen-hydrocodone 325 mg-5 mg oral tablet 1 tab, Route: PO, ONCE, STAT, Start date: 10/09/11 3:40:00, Stop date: 10/09/11 3:40:00 PO No Longer Active [facility] 10/09/2011 [facility] potassium chloride 40 mEq, Rou te: PO, Drug form: ERTAB, ONCE, Priority: STAT, Start date: 10/09/11 3:33:00, Stop date: 10/09/11 3:33:00 PO No Longer Active [facility] 1/2NS 1,000 mL 1,000 mL, Rate: 125 ml/hr, Infuse over: 8 hr, Route: IV, Dosing Weight 62.727 kg, Total Volume: 1,000, Start date: 10/09/11 2:53:00, Duration: 30 day, Stop date: 11/08/11 2:52:00 IV No Longer Active [facility] 10/09/2011 [facility] influenza virus vaccine, inactivated 0.5 ml, Route: IM, Drug Form: INJ, Start date: 03/31/11 9:00:00, Stop date: 03/31/11 9:00:00 Inactive SYSTEM 03/31/2011 [facility], MICHAEL Dunn, [facility] Allergies, Adverse Reactions, Alerts Substance Category Reaction Severity Reaction type Status Date Reported Comments Source aspirin Assertion Drug allergy Active [facility] Augmentin Assertion Drug allergy Active [facility] Food MSG Assertion Drug allergy Active [facility] Imitrex Assertion Drug allergy Active [facility] iodine Assertion Drug allergy Active [facility] Iron (Ferrous Sulfate) drug al lergy Allergy Active [facility] Paper Tape Assertion Drug allergy Active [facility] shellfish Assertion Drug allergy Active [facility] Latex drug allergy Allergy Act jose maria [facility] Immunizations Immunization Date Given Site Status Last Updated Comments Source influenza virus vaccine, inactivated 07/18/2012 completed Altagracia [facility] influenza virus vaccine, inactivated 07/18/2012 Right deltoid completed [facility]rac[facility], inactivated 03/31/2011 Not Given Artem [facility], MICHAEL Dunn,[facility] Hx pneumococcal vaccine 2010 completed Violetta fisher [facility], Ruma Ordoñezann,[facility] Hx pneumococcal vaccine 2010 completed [facility]ta [facility] Results Order Name Results Value Reference Range Date Interpretation Comments Source HEMATOLOGY Sed Rate 8 0 - 20 07/13/2016 [facility] IMMUNOLOGY C-REACTIVE PROTEIN <2.9 <=2.9 mg/L 07/13/2016 [facility] named [facility] MCHC 33.4 32.0 - 36.0 07/13/2016 Formerly named [facility] MPV 9.1 7.4 - 10.4 07/13/2016 Formerly named [facility] RDW 15.9 11.5 - 14.5 07/13/2016 Formerly named [facility] Platelet 271 133 - 450 07/13/2016 Formerly named [facility] WBC 6.0 3.7 - 10.4 07/13/2016 Formerly named [facility] MCH 30.8 27.0 - 31.0 07/13/2016 Formerly named [facility] Hct 35.7 36.0 - 48.0 07/13/2016 Formerly named [facility] MCV 92.3 80.0 - 98.0 07/13/2016 Formerly named [facility] Hgb 11.9 12.0 - 16.0 07/13/2016 Former[facility] named [facility] RBC 3.86 4.20 - 5.40 07/13/2016 Former[facility] named [facility] Basophils # 0.1 0.0 - 0.2 07/13/2016 [facility] HEMATOLOGY Basophils 0.8 0.0 - 1.0 07/13/2016 Formerly named [facility] Monocytes 8.8 2.0 - 12.0 07/13/2016 [facility] named [facility] Eosinophils 8.6 0.0 - 4.0 07/13/2016 [facility] HEMATOLOGY Segs 38.1 45.0 - 75.0 07/13/2016 [facility] HEMATOLOGY Lymphocytes 43.7 20.0 - 40.0 07/13/2016 [facility] HEMATOLOGY Eosinophils # 0.5 0.0 - 0.5 07/13/2016 [facility] named [facility] Monocytes # 0.5 0.0 - 0.8 07/13/2016 Former[facility] named [facility] Lymphocytes # 2.6 1.0 - 5.5 07/13/2016 [facility] HEMATOLOGY Segs-Bands # 2.3 1.5 - 8.1 07/13/2016 [facility] CHEM PANEL Lipase Lvl 171 73 - 393 07/13/2016 [facility] CHEM PANEL eGFR 107 07/13/2016 Result [...] should be multiplied by the estimated BMI. [facility] CHEM PANEL AST 18 0 - 37 07/13/2016 [facility] CHEM PANEL Calcium Lvl 8.6 8.5 - 10.5 07/13/2016 [facility] CHEM PANEL Alk Phos 86 39 - 136 07/13/2016 [facility] CHEM PANEL Albumin Lvl 3.7 3.5 - 5.0 07/13/2016 [facility] CHEM PANEL ALT 64 0 - 65 07/13/2016 [facility] CHEM PANEL CO2 29 24 - 32 07/13/2016 [facility] CHEM PANEL Total Protein 6.7 6.4 - 8.4 07/13/2016 [facility] CHEM PANEL AGAP 10.3 10.0 - 20.0 07/13/2016 [facility] CHEM PANEL Bili Total <0.1 0.2 - 1.3 07/13/2016 [facility] CHEM PANEL B/C Ratio 23 6 - 25 07/13/2016 [facility] CHEM PANEL Globulin 3.0 2.7 - 4.2 07/13/2016 [facility] CHEM PANEL A/G Ratio 1.2 0.7 - 1.6 07/13/2016 [facility] CHEM PANEL Chloride Lvl 103 95 - 109 07/13/2016 [facility] CHEM PANEL Potassium Lvl 4.3 3.5 - 5.1 07/13/2016 [facility] CHEM PANEL Sodium Lvl 138 135 - 145 07/13/2016 [facility] CHEM PANEL Creatinine Lvl 0.71 0.50 - 1.40 07/13/2016 [facility] CHEM PANEL BUN 16 7 - 22 07/13/2016 [facility] CHEM PANEL Glucose Lvl 87 70 - 99 07/13/2016 [facility] URINE AND STOOL UA Turbidity Clear (07/13/16 4:47 AM) Clear 07/13/2016 [facility] URINE AND STOOL UA Color Yellow *NA* (07/13/16 4:47 AM) Yellow 07/13/2016 [facility] URINE AND STOOL UA Glucose Negative mg/dL Negative mg/dL 07/13/[address] [facility] [address] URINE AND STOOL UA Protein Negative mg/dL Negative mg/dL 07/13/[address] [facility] [address] URINE AND STOOL UA pH 5.0 5.0 - 8.0 07/13/2016 [facility] URINE AND STOOL UA Ketones Negative mg/dL Negative mg/dL 07/13/[address] [facility] [address] URINE AND STOOL UA Bili Negative *NA* (07/13/16 4:47 AM) Negative 07/13/2016 [facility] URINE AND STOOL UA Hyal Cast 1 0 - 2 07/13/2016 [facility] URINE AND STOOL UA Sq Epi Occasional /LPF Few /LPF 07/13/2016 [facility] URINE AND STOOL UA Leuk Est Small *ABN* (07/13/16 4:47 AM) Negative 07/13/2016 [facility] URINE AND STOOL UA Nitrite Negative (07/13/16 4:47 AM) Negative 07/13/2016 [facility] URINE AND STOOL UA WBC 5 0 - 5 07/13/2016 [facility] URINE AND STOOL UA RBC 3 0 - 2 07/13/2016 [facility] URINE AND STOOL UA Spec Grav 1.012 <=1.030 07/13/2016 [facility] URINE AND STOOL UA Urobilinogen <=1.0 mg/dL 0.1 - 1.0 07/13/2016 [facility] URINE AND STOOL UA Blood Negative (07/13/16 4:47 AM) Negative 07/13/2016 [facility] URINE CHEM U Preg Negat jose maria (07/13/16 4:47 AM) Negative 07/13/2016 [facility] HEMATOLOGY RDW 16.4 11.5 - 14.5 05/10/2016 [facility] HEMATOLOGY MPV 8.6 7.4 - 10.4 05/10/2016 [facility] HEMATOLOGY Platelet 304 133 - 450 05/10/2016 [facility] named [facility] MCHC 33.0 32.0 - 36.0 05/10/2016 [facility] named [facility] MCH 29.9 27.0 - 31.0 05/10/2016 [facility] HEMATOLOGY MCV 90.7 80.0 - 98.0 05/10/2016 [facility] HEMATOLOGY Hct 28.2 36.0 - 48.0 05/10/2016 [facility] HEMATOLOGY Hgb 9.3 12.0 - 16.0 05/10/2016 [facility] HEMATOLOGY RBC 3.10 4.20 - 5.40 05/10/2016 [facility] HEMATOLOGY WBC 10.2 3.7 - 10.4 05/10/2016 [facility] HEMATOLOGY Eosinophils 1.2 0.0 - 4.0 05/10/2016 [facility] HEMATOLOGY Basophils 0.7 0.0 - 1.0 05/10/2016 [facility] HEMATOLOGY Lymphocytes # 2.0 1.0 - 5.5 05/10/2016 [facility] HEMATOLOGY Segs-Bands # 7.2 1.5 - 8.1 05/10/2016 [facility] HEMATOLOGY Segs 70.1 45.0 - 75.0 05/10/2016 [facility] HEMATOLOGY Monocytes 8.1 2.0 - 12.0 05/10/2016 [facility] HEMATOLOGY Lymphocytes 19.9 20.0 - 40.0 05/10/2016 [facility] HEMATOLOGY Monocytes # 0.8 0.0 - 0.8 05/10/2016 [facility] HEMATOLOGY Basophils # 0.1 0.0 - 0.2 05/10/2016 [facility] HEMATOLOGY Eosinophils # 0.1 0.0 - 0.5 05/10/2016 [facility] CHEM PANEL A/G Ratio 1.1 0.7 - 1.6 05/05/2016 [facility] CHEM PANEL Globulin 2.6 2.7 - 4.2 05/05/2016 [facility] CHEM PANEL AGAP 11.8 10.0 - 20.0 05/05/2016 [facility] CHEM PANEL B/C Ratio 12 6 - 25 05/05/2016 [facility] CHEM PANEL eGFR 111 05/05/2016 Result [...] should be multiplied by the estimated BMI. [facility] CHEM PANEL AST 8 0 - 37 05/05/2016 [facility] CHEM PANEL Bili Total 0.1 0.2 - 1.3 05/05/2016 [facility] CHEM PANEL Alk Phos 65 39 - 136 05/05/2016 [facility] CHEM PANEL ALT 43 0 - 65 05/05/2016 [facility] CHEM PANEL Total Protein 5.4 6.4 - 8.4 05/05/2016 [facility] CHEM PANEL Albumin Lvl 2.8 3.5 - 5.0 05/05/2016 [facility] CHEM PANEL Chloride Lvl 105 95 - 109 05/05/2016 [facility] CHEM PANEL CO2 29 24 - 32 05/05/2016 [facility] CHEM PANEL Calcium Lvl 8.0 8.5 - 10.5 05/05/2016 [facility] CHEM PANEL Potassium Lvl 3.8 3.5 - 5.1 05/05/2016 [facility] CHEM PANEL Sodium Lvl 142 135 - 145 05/05/2016 [facility] CHEM PANEL BUN 8 7 - 22 05/05/2016 [facility] CHEM PANEL Creatinine Lvl 0.66 0.50 - 1.40 05/05/2016 [facility] CHEM PANEL Glucose Lvl 76 70 - 99 05/05/2016 [facility] HEMATOLOGY Segs 47.1 45.0 - 75.0 05/05/2016 [facility] HEMATOLOGY Lymphocytes 38.2 20.0 - 40.0 05/05/2016 [facility] HEMATOLOGY Lymphocytes # 2.0 1.0 - 5.5 05/05/2016 [facility] HEMATOLOGY Monocytes # 0.4 0.0 - 0.8 05/05/2016 [facility] HEMATOLOGY Segs-Bands # 2.5 1.5 - 8.1 05/05/2016 [facility] HEMATOLOGY Eosinophils # 0.4 0.0 - 0.5 05/05/2016 [facility] Monocytes 7.0 2.0 - 12.0 05/05/2016 [facility] HEMATOLOGY Basophils 0.9 0.0 - 1.0 05/05/2016 [facility] Eosinophils 6.8 0.0 - 4.0 05/05/2016 [facility] MCH 29.5 27.0 - 31.0 05/05/2016 [facility] Hct 24.6 36.0 - 48.0 05/05/2016 [facility] MCV 90.3 80.0 - 98.0 05/05/2016 [facility] RBC 2.73 4.20 - 5.40 05/05/2016 [facility] Hgb 8.1 12.0 - 16.0 05/05/2016 [facility] RDW 15.8 11.5 - 14.5 05/05/2016 [facility] MCHC 32.7 32.0 - 36.0 05/05/2016 [facility] MPV 8.8 7.4 - 10.4 05/05/2016 [facility] Platelet 330 133 - 450 05/05/2016 [facility] WBC 5.3 3.7 - 10.4 05/05/2016 [facility] PTT 28.5 22.9 - 35.8 04/30/2016 [facility] INR 0.93 0.85 - 1.17 04/30/2016 [facility] PT 12.7 12.0 - 14.7 04/30/2016 [facility] CHEM PANEL Lipase Lvl 172 73 - 393 04/30/2016 [facility] CHEM PANEL eGFR 102 04/30/2016 Result [...] B/C Ratio 26 6 - 25 04/30/2016 [facility] CHEM PANEL Globulin 3.0 2.7 - 4.2 04/30/2016 [facility] CHEM PANEL A/G Ratio 1.0 0.7 - 1.6 04/30/2016 [facility] ENDOCRINOLOGY hCG Tot 2 04/30/2016 [facility] HEMATOLOGY Basophils # 0.1 0.0 - 0.2 04/30/2016 [facility] HEMATOLOGY Eosinophils # 0.2 0.0 - 0.5 04/30/2016 [facility] HEMATOLOGY Monocytes # 0.6 0.0 - 0.8 04/30/2016 [facility] HEMATOLOGY Lymphocytes # 2.0 1.0 - 5.5 04/30/2016 [facility] HEMATOLOGY Lymphocytes 31.6 20.0 - 40.0 04/30/2016 [facility] HEMATOLOGY Eosinophils 3.4 0.0 - 4.0 04/30/2016 [facility] HEMATOLOGY Monocytes 9.3 2.0 - 12.0 04/30/2016 [facility] HEMATOLOGY Segs-Bands # 3.5 1.5 - 8.1 04/30/2016 [facility] HEMATOLOGY Basophils 1.2 0.0 - 1.0 04/30/2016 [facility] HEMATOLOGY Segs 54.5 45.0 - 75.0 04/30/2016 [facility] HEMATOLOGY RBC 3.30 4.20 - 5.40 04/30/2016 [facility] HEMATOLOGY WBC 6.4 3.7 - 10.4 04/30/2016 [facility] HEMATOLOGY Hct 29.9 36.0 - 48.0 04/30/2016 [facility] HEMATOLOGY MCV 90.6 80.0 - 98.0 04/30/2016 [facility] HEMATOLOGY Hgb 9.8 12.0 - 16.0 04/30/2016 [facility] HEMATOLOGY MPV 8.5 7.4 - 10.4 04/30/2016 [facility] HEMATOLOGY Platelet 391 133 - 450 04/30/2016 [facility] HEMATOLOGY RDW 15.6 11.5 - 14.5 04/30/2016 [facility] MCHC 32.9 32.0 - 36.0 04/30/2016 [facility] MCH 29.8 27.0 - 31.0 04/30/2016 [facility] URINE AND STOOL UA Leuk Est Trace *ABN* (04/29/16 8:56 PM) Negative 04/30/2016 [facility] URINE AND STOOL UA Bacteria Occasional /HPF None Seen /HPF 04/30/2016 [facility] [address] URINE AND STOOL UA RBC 1 0 - 2 04/30/2016 [facility] URINE AND STOOL UA Amorph Adrianne Few /HPF None Seen /HPF 04/30/2016 [facility] [address] URINE AND STOOL UA WBC 5 0 - 5 04/30/2016 [facility] URINE AND STOOL UA Sq Epi None Seen 04/30/2016 [facility] URINE AND STOOL UA Urobilinogen <=1.0 mg/dL 0.1 - 1.0 04/30/2016 [facility] [address] URINE AND STOOL UA pH 7.0 5.0 - 8.0 04/30/2016 [facility] URINE AND STOOL UA Protein Negative mg/dL Negative mg/dL 04/30/2016 [facility] [address] URINE AND STOOL UA Glucose Negative mg/dL Negative mg/dL 04/30/2016 [facility] [address] URINE AND STOOL UA Spec Grav 1.014 <=1.030 04/30/2016 [facility] URINE AND STOOL UA Turbidity Marked *ABN* (04/29/16 8:56 PM) Clear 04/30/2016 [facility] URINE AND STOOL UA Color Yellow *NA* (04/29/16 8:56 PM) Yellow 04/30/2016 [facility] URINE AND STOOL UA Nitrite Negative (04/29/16 8:56 PM) Negative 04/30/2016 [facility] URINE AND STOOL UA Blood Negative (04/29/16 8:56 PM) Negative 04/30/2016 [facility] URINE AND STOOL UA Bili Negative *NA* (04/29/16 8:56 PM) Negative 04/30/2016 [facility] URINE AND STOOL UA Ketones Negative mg/dL Negative mg/dL 04/30/2016 [facility] CHEM PANEL eGFR 90 04/12/2016 Result [...] should be multiplied by the estimated BMI. [facility] CHEM PANEL AST 9 0 - 37 04/12/2016 [facility] CHEM PANEL ALT 28 0 - 65 04/12/2016 [facility] CHEM PANEL Alk Phos 60 39 - 136 04/12/2016 [facility] CHEM PANEL Bili Total 0.2 0.2 - 1.3 04/12/2016 [facility] CHEM PANEL Calcium Lvl 8.8 8.5 - 10.5 04/12/2016 [facility] CHEM PANEL CO2 27 24 - 32 04/12/2016 [facility] CHEM PANEL Chloride Lvl 101 95 - 109 04/12/2016 [facility] CHEM PANEL Creatinine Lvl 0.82 0.50 - 1.40 04/12/2016 [facility] CHEM PANEL Glucose Lvl 96 70 - 99 04/12/2016 [facility] CHEM PANEL BUN 17 7 - 22 04/12/2016 [facility] CHEM PANEL Sodium Lvl 137 135 - 145 04/12/2016 [facility] CHEM PANEL Potassium Lvl 4.0 3.5 - 5.1 04/12/2016 [facility] CHEM PANEL Total Protein 6.7 6.4 - 8.4 04/12/2016 [facility] CHEM PANEL Albumin Lvl 3.6 3.5 - 5.0 04/12/2016 [facility] CHEM PANEL A/G Ratio 1.2 0.7 - 1.6 04/12/2016 [facility] CHEM PANEL B/C Ratio 21 6 - 25 04/12/2016 [facility] CHEM PANEL Globulin 3.1 2.7 - 4.2 04/12/2016 [facility] CHEM PANEL AGAP 13.0 10.0 - 20.0 04/12/2016 [facility] ENDOCRINOLOGY S Preg Ne gative *NA* (04/11/16 9:18 PM) Negative 04/12/2016 [facility] HEMATOLOGY MCH 29.6 27.0 - 31.0 04/12/2016 [facility] HEMATOLOGY MCHC 32.9 32.0 - 36.0 04/12/2016 [facility] HEMATOLOGY MCV 89.9 80.0 - 98.0 04/12/2016 [facility] HEMATOLOGY Hct 30.8 36.0 - 48.0 04/12/2016 [facility] HEMATOLOGY Platelet 381 133 - 450 04/12/2016 [facility] HEMATOLOGY MPV 8.7 7.4 - 10.4 04/12/2016 [facility] HEMATOLOGY RDW 15.4 11.5 - 14.5 04/12/2016 [facility] HEMATOLOGY RBC 3.43 4.20 - 5.40 04/12/2016 [facility] HEMATOLOGY WBC 7.1 3.7 - 10.4 04/12/2016 [facility] HEMATOLOGY Hgb 10.1 12.0 - 16.0 04/12/2016 [facility] HEMATOLOGY PTT 23.9 22.9 - 35.8 04/12/2016 [facility] HEMATOLOGY INR 0.93 0.85 - 1.17 04/12/2016 [facility] HEMATOLOGY PT 12.7 12.0 - 14.7 04/12/2016 [facility] HEMATOLOGY Monocytes # 0.5 0.0 - 0.8 04/12/2016 [facility] HEMATOLOGY Basophils # 0.1 0.0 - 0.2 04/12/2016 [facility] HEMATOLOGY Basophils 1.1 0.0 - 1.0 04/12/2016 [facility] HEMATOLOGY Segs-Bands # 4.3 1.5 - 8.1 04/12/2016 [facility] HEMATOLOGY Lymphocytes # 2.1 1.0 - 5.5 04/12/2016 [facility] HEMATOLOGY Eosinophils 0.6 0.0 - 4.0 04/12/2016 [facility] HEMATOLOGY Monocytes 7.4 2.0 - 12.0 04/12/2016 [facility] HEMATOLOGY Lymphocytes 29.9 20.0 - 40.0 04/12/2016 [facility] HEMATOLOGY Segs 61.0 45.0 - 75.0 04/12/2016 [facility] URINE AND STOOL UA Trans Epi 9 <=0 /LPF 04/12/2016 [facility] URINE AND STOOL UA Color Ltyellow 04/12/2016 [facility] URINE AND STOOL UA Urobilinogen <=1.0 mg/dL 0.1 - 1.0 04/12/2016 [facility] URINE AND STOOL UA Renal Epi 60 <=0 /LPF 04/12/2016 [facility] URINE AND STOOL UA Amorph Adrianne Few /HPF None Seen /HPF 04/12/2016 [facility] URINE AND STOOL UA RBC 2 0 - 2 04/12/2016 [facility] URINE AND STOOL UA [place] Yeast Occasional /HPF None Seen /HPF 04/12/2016 [facility] URINE AND STOOL UA Spec Grav 1.012 <=1.030 04/12/2016 [facility] URINE AND STOOL UA Turbidity Clear (04/11/16 9:04 PM) Clear 04/12/2016 [facility] URINE AND STOOL UA Glucose Negative mg/dL Negative mg/dL 04/12/2016 [facility] URINE AND STOOL UA Protein Negative mg/dL Negative mg/dL 04/12/2016 [facility] URINE AND STOOL UA pH 7.0 5.0 - 8.0 04/12/2016 [facility] URINE AND STOOL UA Bili Negative *NA* (04/11/16 9:04 PM) Negative 04/12/2016 [facility] URINE AND STOOL UA Ketones Negative mg/dL Negative mg/dL 04/12/2016 [facility] URINE AND STOOL UA Leuk Est Small *ABN* (04/11/16 9:04 PM) Negative 04/12/2016 [facility] URINE AND STOOL UA Nitrite Negative (04/11/16 9:04 PM) Negative 04/12/2016 [facility] URINE AND STOOL UA Blood Negative (04/11/16 9:04 PM) Negative 04/12/2016 [facility] URINE AND STOOL UA Sq Epi Occasional /LPF Few /LPF 04/12/2016 [facility] URINE AND STOOL UA WBC 8 0 - 5 04/12/2016 [facility] URINE AND STOOL UA Color Ltyellow 04/06/2016 [facility] URINE AND STOOL UA Urobilinogen <=1.0 mg/dL 0.1 - 1.0 04/06/2016 [facility] URINE AND STOOL UA Blood Negative (04/06/16 12:00 AM) Negative 04/06/2016 [facility] URINE AND STOOL UA Nitrite Negative (04/06/16 12:00 AM) Negative 04/06/2016 [facility] URINE AND STOOL UA Ketones Trace mg/dL Negative mg/dL 04/06/2016 [facility] URINE AND STOOL UA Bili Negative *NA* (04/06/16 12:00 AM) Negative 04/06/2016 [facility] URINE AND STOOL UA RBC <1 0 - 2 04/06/2016 [facility] URINE AND STOOL UA WBC <1 0 - 5 04/06/2016 [facility] URINE AND STOOL UA Leuk Est Trace *ABN* (04/06/16 12:00 AM) Negative 04/06/2016 [facility] URINE AND STOOL UA Sq Epi Occasional /LPF Few /LPF 04/06/2016 [facility] URINE AND STOOL UA Glucose Negative mg/dL Negative mg/dL 04/06/2016 [facility] URINE AND STOOL UA pH 8.0 5.0 - 8.0 04/06/2016 [facility] URINE AND STOOL UA Protein Negative mg/dL Negative mg/dL 04/06/2016 [facility] URINE AND STOOL UA Spec Grav 1.003 <=1.030 04/06/2016 [facility] URINE AND STOOL UA Turbidity Clear (04/06/16 12:00 AM) Clear 04/06/2016 [facility] CHEM PANEL Lipase Lvl 147 73 - 393 04/06/2016 [facility] CHEM PANEL Amylase Lvl 37 25 - 115 04/06/2016 [facility] CHEM PANEL Globulin 3.4 2.7 - 4.2 04/06/2016 [facility] CHEM PANEL A/G Ratio 1.2 0.7 - 1.6 04/06/2016 [facility] CHEM PANEL B/C Ratio 21 6 - 25 04/06/2016 [facility] CHEM PANEL AGAP 11.0 10.0 - 20.0 04/06/2016 [facility] CHEM PANEL eGFR 113 04/06/2016 Result [...] should be multiplied by the estimated BMI. [facility] CHEM PANEL Total Protein 7.6 6.4 - 8.4 04/06/2016 [facility] CHEM PANEL Albumin Lvl 4.2 3.5 - 5.0 04/06/2016 [facility] CHEM PANEL ALT 30 0 - 65 04/06/2016 [facility] CHEM PANEL AST 10 0 - 37 04/06/2016 [facility] CHEM PANEL Calcium Lvl 9.1 8.5 - 10.5 04/06/2016 [facility] CHEM PANEL Alk Phos 75 39 - 136 04/06/2016 [facility] CHEM PANEL Bili Total 0.3 0.2 - 1.3 04/06/2016 [facility] CHEM PANEL Chloride Lvl 100 95 - 109 04/06/2016 [facility] CHEM PANEL Potassium Lvl 4.0 3.5 - 5.1 04/06/2016 [facility] CHEM PANEL CO2 30 24 - 32 04/06/2016 [facility] CHEM PANEL Sodium Lvl 137 135 - 145 04/06/2016 [facility] CHEM PANEL BUN 13 7 - 22 04/06/2016 [facility] CHEM PANEL Creatinine Lvl 0.63 0.50 - 1.40 04/06/2016 [facility] CHEM PANEL Glucose Lvl 93 70 - 99 04/06/2016 [facility] CHEM PANEL Phosphorus 3.2 2.5 - 4.5 04/06/2016 [facility] CHEM PANEL Magnesium Lvl 2.7 1.8 - 2.4 04/06/2016 [facility] ENDOCRINOLOGY S Preg Ne gative *NA* (04/05/16 8:21 PM) Negative 04/06/2016 [facility] HEMATOLOGY Lymphocytes 13.3 20.0 - 40.0 04/06/2016 [facility] HEMATOLOGY Segs 82.4 45.0 - 75.0 04/06/2016 [facility] HEMATOLOGY Segs-Bands # 8.6 1.5 - 8.1 04/06/2016 [facility] HEMATOLOGY Basophils 0.2 0.0 - 1.0 04/06/2016 [facility] HEMATOLOGY Monocytes 4.1 2.0 - 12.0 04/06/2016 [facility] HEMATOLOGY Monocytes # 0.4 0.0 - 0.8 04/06/2016 [facility] HEMATOLOGY Lymphocytes # 1.4 1.0 - 5.5 04/06/2016 [facility] HEMATOLOGY Platelet 420 133 - 450 04/06/2016 [facility] HEMATOLOGY MPV 8.8 7.4 - 10.4 04/06/2016 [facility] HEMATOLOGY RDW 15.9 11.5 - 14.5 04/06/2016 [facility] MCH 29.4 27.0 - 31.0 04/06/2016 [facility] named [facility] MCHC 32.4 32.0 - 36.0 04/06/2016 [facility] HEMATOLOGY Hct 33.5 36.0 - 48.0 04/06/2016 [facility] HEMATOLOGY MCV 90.6 80.0 - 98.0 04/06/2016 [facility] HEMATOLOGY Hgb 10.9 12.0 - 16.0 04/06/2016 [facility] HEMATOLOGY WBC 10.4 3.7 - 10.4 04/06/2016 [facility] HEMATOLOGY RBC 3.70 4.20 - 5.40 04/06/2016 [facility] URINE AND STOOL UA Urobilinogen <=1.0 mg/dL 0.1 - 1.0 03/03/2016 [facility] URINE AND STOOL UA Color Ltyellow 03/03/2016 [facility] URINE AND STOOL UA Sq Epi Few /LPF Few /LPF 03/03/2016 [facility] URINE AND STOOL UA RBC 4 0 - 2 03/03/2016 [facility] URINE AND STOOL UA WBC 167 0 - 5 03/03/2016 [facility] URINE AND STOOL UA Renal Epi 17 <=0 /LPF 03/03/2016 [facility] URINE AND STOOL UA Bacteria Occasional /HPF None Seen /HPF 03/03/2016 [facility] URINE AND STOOL UA Spec Grav 1.011 <=1.030 03/03/2016 [facility] URINE AND STOOL UA Turbidity Slight *ABN* (03/02/16 8:29 PM) Clear 03/03/2016 [facility] URINE AND STOOL UA Ketones Negative mg/dL Negative mg/dL 03/03/2016 [facility] URINE AND STOOL UA Blood Negative (03/02/16 8:29 PM) Negative 03/03/2016 [facility] URINE AND STOOL UA Protein Negative mg/dL Negative mg/dL 03/03/2016 [facility] URINE AND STOOL UA Bili Negative *NA* (03/02/16 8:29 PM) Negative 03/03/2016 [facility] URINE AND STOOL UA pH 5.0 5.0 - 8.0 03/03/2016 [facility] URINE AND STOOL UA Glucose Negative mg/dL Negative mg/dL 03/03/2016 [facility] URINE AND STOOL UA Leuk Est Large *ABN* (03/02/16 8:29 PM) Negative 03/03/2016 [facility] URINE AND STOOL UA Nitrite Negative (03/02/16 8:29 PM) Negative 03/03/2016 [facility] CHEM PANEL eGFR 114 03/03/2016 Result [...] should be multiplied by the estimated BMI. [facility] CHEM PANEL CO2 23 24 - 32 03/03/2016 [facility] CHEM PANEL Total Protein 7.1 6.4 - 8.4 03/03/2016 [facility] CHEM PANEL Calcium Lvl 8.8 8.5 - 10.5 03/03/2016 [facility] CHEM PANEL Sodium Lvl 140 135 [...] Bili Direct 0.1 0.0 - 0.3 03/03/2016 [facility] HEMATOLOGY Platelet 386 133 - 450 03/03/2016 [facility] HEMATOLOGY MPV 9.3 7.4 - 10.4 03/03/2016 [facility] HEMATOLOGY RDW 15.1 11.5 - 14.5 03/03/2016 [facility] HEMATOLOGY WBC 6.1 3.7 - 10.4 03/03/2016 [facility] HEMATOLOGY RBC 3.68 4.20 - 5.40 03/03/2016 [facility] HEMATOLOGY Hct 33.8 36.0 - 48.0 03/03/2016 [facility] HEMATOLOGY MCV 91.6 80.0 - 98.0 03/03/2016 [facility] HEMATOLOGY Hgb 11.2 12.0 - 16.0 03/03/2016 [facility] HEMATOLOGY MCHC 33.3 32.0 - 36.0 03/03/2016 [facility] HEMATOLOGY MCH 30.5 27.0 - 31.0 03/03/2016 [facility] HEMATOLOGY Monocytes # 0.5 0.0 - 0.8 03/03/2016 [facility] HEMATOLOGY Eosinophils # 0.2 0.0 - 0.5 03/03/2016 [facility] HEMATOLOGY Basophils # 0.1 0.0 - 0.2 03/03/2016 [facility] HEMATOLOGY Lymphocytes # 2.7 1.0 - 5.5 03/03/2016 [facility] HEMATOLOGY Basophils 0.9 0.0 - 1.0 03/03/2016 [facility] HEMATOLOGY Segs-Bands # 2.6 1.5 - 8.1 03/03/2016 [facility] Monocytes 8.3 2.0 - 12.0 03/03/2016 [facility] HEMATOLOGY Segs 43.4 45.0 - 75.0 03/03/2016 [facility] HEMATOLOGY Eosinophils 3.5 0.0 - 4.0 03/03/2016 [facility] named [facility] Lymphocytes 43.9 20.0 - 40.0 03/03/2016 [facility] ELECTROLYTES Sodium Lvl 143 135 - 145 09/26/2014 [facility] ELECTROLYTES Chloride Lvl 107 95 - 109 09/26/2014 [facility] ELECTROLYTES Potassium Lvl 3.5 3.5 - 5.1 09/26/2014 [facility] ELECTROLYTES eGFR 110 09/26/2014 <sup>1</sup>Result Comment: [...] should be multiplied by the estimated BMI. [facility] ELECTROLYTES Glucose Lvl 82 70 - 99 09/26/2014 <sup>4</sup>Interpretive Data: Adult ref erence range values reflect the clinical guidelines
of the [place] [employer]. [facility] ELECTROLYTES CO2 27 24 - 32 09/26/2014 [facility] ELECTROLYTES Creatinine Lvl 0.7 0.5 - 1.4 09/26/2014 [facility] ELECTROLYTES AGAP 12.5 10.0 - 20.0 09/26/2014 [facility] ELECTROLYTES Calcium Lvl 7.9 8.5 - 10.5 09/26/2014 [facility] ELECTROLYTES BUN 6 7 - 22 09/26/2014 [facility] ELECTROLYTES Sodium Lvl 144 135 - 145 09/23/2014 [facility] ELECTROLYTES Chloride Lvl 107 95 - 109 09/23/2014 [facility] ELECTROLYTES Potassium Lvl 4.1 3.5 - 5.1 09/23/2014 [facility] ELECTROLYTES eGFR 94 09/23/2014 <sup>2</sup>Result Comment: [...] should be multiplied by the estimated BMI. [facility] ELECTROLYTES AST 29 0 - 37 09/23/2014 [facility] ELECTROLYTES Bili Total 0.3 0.2 - 1.3 09/23/2014 [facility] ELECTROLYTES Alk Phos 238 39 - 136 09/23/2014 [facility] ELECTROLYTES Albumin Lvl 3.4 3.5 - 5.0 09/23/2014 [facility] ELECTROLYTES ALT 122 0 - 65 09/23/2014 [facility] ELECTROLYTES Total Protein 5.6 6.4 - 8.4 09/23/2014 [facility] ELECTROLYTES Calcium Lvl 8.3 8.5 - 10.5 09/23/2014 [facility] ELECTROLYTES BUN 4 7 - 22 09/23/2014 [facility] ELECTROLYTES Glucose Lvl 62 70 - 99 09/23/2014 <sup>5</sup>Interpretive Data: Adult ref erence range values reflect the clinical guidelines
of the [place] [employer]. [facility] ELECTROLYTES Creatinine Lvl 0.8 0.5 - 1.4 09/23/2014 [facility] ELECTROLYTES CO2 29 24 - 32 09/23/2014 [facility] ELECTROLYTES AGAP 12.1 10.0 - 20.0 09/23/2014 [facility] ELECTROLYTES A/G Ratio 1.5 0.7 - 1.6 09/23/2014 [facility] ELECTROLYTES B/C Ratio 5 6 - 25 09/23/2014 [facility] ELECTROLYTES Globulin 2.2 2.0 - 4.0 09/23/2014 [facility] HEMATOLOGY Eosinophils # 0.7 0.0 - 0.5 09/23/2014 [facility] HEMATOLOGY Monocytes # 0.3 0.0 - 0.8 09/23/2014 [facility] HEMATOLOGY Lymphocytes # 1.5 1.0 - 5.5 09/23/2014 [facility] HEMATOLOGY Basophils 0.9 0.0 - 1.0 09/23/2014 [facility] HEMATOLOGY Eosinophils 17.0 0.0 - 4.0 09/23/2014 [facility] HEMATOLOGY Segs-Bands # 1.4 1.5 - 8.1 09/23/2014 [facility] HEMATOLOGY Monocytes 7.9 2.0 - 12.0 09/23/2014 [facility] HEMATOLOGY Lymphocytes 38.1 20.0 - 40.0 09/23/2014 [facility] HEMATOLOGY Segs 36.1 45.0 - 75.0 09/23/2014 [facility] MCH 32.1 27.0 - 31.0 09/23/2014 [facility] named [facility] MCHC 33.5 32.0 - 36.0 09/23/2014 [facility] HEMATOLOGY MCV 95.9 80.0 - 98.0 09/23/2014 [facility] HEMATOLOGY Platelet 215 133 - 450 09/23/2014 [facility] HEMATOLOGY RDW 13.5 11.5 - 14.5 09/23/2014 [facility] HEMATOLOGY Hct 36.0 36.0 - 48.0 09/23/2014 [facility] named [facility] Hgb 12.0 12.0 - 16.0 09/23/2014 [facility] RBC 3.75 4.20 - 5.40 09/23/2014 [facility] named [facility] MPV 10.2 7.4 - 10.4 09/23/2014 [facility] HEMATOLOGY WBC 3.8 3.7 - 10.4 09/23/2014 [facility] ELECTROLYTES AGAP 12.6 10.0 - 20.0 09/19/2014 [facility] ELECTROLYTES A/G Ratio 1.3 0.7 - 1.6 09/19/2014 [facility] ELECTROLYTES B/C Ratio 4 6 - 25 09/19/2014 [facility] ELECTROLYTES Globulin 2.2 2.0 - 4.0 09/19/2014 [facility] ELECTROLYTES Potassium Lvl 3.6 3.5 - 5.1 09/19/2014 [facility] ELECTROLYTES Chloride Lvl 111 95 - 109 09/19/2014 [facility] ELECTROLYTES Calcium Lvl 8.0 8.5 - 10.5 09/19/2014 [facility] ELECTROLYTES Creatinine Lvl 0.8 0.5 - 1.4 09/19/2014 [facility] ELECTROLYTES Sodium Lvl 144 135 - 145 09/19/2014 [facility] ELECTROLYTES eGFR 94 09/19/2014 <sup>3</sup>Result Comment: [...] should be multiplied by the estimated BMI. [facility] ELECTROLYTES Bili Total 0.3 0.2 - 1.3 09/19/2014 [facility] ELECTROLYTES Alk Phos 225 39 - 136 09/19/2014 [facility] ELECTROLYTES AST 32 0 - 37 09/19/2014 [facility] ELECTROLYTES Total Protein 5.1 6.4 - 8.4 09/19/2014 [facility] ELECTROLYTES Albumin Lvl 2.9 3.5 - 5.0 09/19/2014 [facility] ELECTROLYTES CO2 24 24 - 32 09/19/2014 [facility] ELECTROLYTES ALT 177 0 - 65 09/19/2014 [facility] ELECTROLYTES Glucose Lvl 97 70 - 99 09/19/2014 <sup>6</sup>Interpretive Data: Adult ref erence range values reflect the clinical guidelines
of the [employer] [employer]. [facility] ELECTROLYTES BUN 3 7 - 22 09/19/2014 [facility] HEMATOLOGY Hgb 11.0 12.0 - 16.0 09/19/2014 [facility] RBC 3.41 4.20 - 5.40 09/19/2014 [facility] HEMATOLOGY MCV 96.2 80.0 - 98.0 09/19/2014 [facility] HEMATOLOGY Hct 32.8 36.0 - 48.0 09/19/2014 [facility] MCH 32.4 27.0 - 31.0 09/19/2014 [facility] RDW 14.0 11.5 - 14.5 09/19/2014 [facility] [facility] MPV 10.5 7.4 - 10.4 09/19/2014 Formerly named [facility] MCHC 33.7 32.0 - 36.0 09/19/2014 Formerly named [facility] Platelet 174 133 - 450 09/19/2014 Formerly named [facility] WBC 4.1 3.7 - 10.4 09/19/2014 [facility]ly named [facility] Lymphocytes 51.5 20.0 - 40.0 09/19/2014 [facility] HEMATOLOGY Segs 27.2 45.0 - 75.0 09/19/2014 [facility] HEMATOLOGY Basophils 0.6 0.0 - 1.0 09/19/2014 [facility]ly named [facility] Eosinophils 13.5 0.0 - 4.0 09/19/2014 [facility] named [facility] Lymphocytes # 2.1 1.0 - 5.5 09/19/2014 [facility] named [facility] Monocytes # 0.3 0.0 - 0.8 09/19/2014 [facility] named [facility] Eosinophils # 0.6 0.0 - 0.5 09/19/2014 [facility] named [facility] Monocytes 7.2 2.0 - 12.0 09/19/2014 [facility]ly named [facility] Segs-Bands # 1.1 1.5 - 8.1 09/19/2014 [facility] CHEM PANEL Albumin Lvl 3.4 3.5 - 5.0 09/18/2014 [facility] CHEM PANEL Globulin 2.4 2.0 - 4.0 09/18/2014 [facility] CHEM PANEL A/G Ratio 1.4 0.7 - 1.6 09/18/2014 [facility] CHEM PANEL ALT 233 0 - 65 09/18/2014 [facility] CHEM PANEL AST 51 0 - 37 09/18/2014 [facility] CHEM PANEL Total Protein 5.8 6.4 - 8.4 09/18/2014 [facility] CHEM PANEL Alk Phos 237 39 - 136 09/18/2014 [facility] CHEM PANEL Bili Total 0.2 0.2 - 1.3 09/18/2014 [facility] CHEM PANEL B/C Ratio 5 6 - 25 09/18/2014 [facility] HEMATOLOGY Monocytes 7.1 2.0 - 12.0 09/16/2014 [facility] HEMATOLOGY Segs 16.2 45.0 - 75.0 09/16/2014 [facility] named [facility] Monocytes # 0.3 0.0 - 0.8 09/16/2014 [facility] HEMATOLOGY Basophils 0.8 0.0 - 1.0 09/16/2014 [facility] HEMATOLOGY Eosinophils 15.0 0.0 - 4.0 09/16/2014 Formerly named [facility] Lymphocytes 60.9 20.0 - 40.0 09/16/2014 Formerly named [facility] Lymphocytes # 2.5 1.0 - 5.5 09/16/2014 [facility] HEMATOLOGY Segs-Bands # 0.7 1.5 - 8.1 09/16/2014 [facility] named [facility] Eosinophils # 0.6 0.0 - 0.5 09/16/2014 [facility] named [facility] Plt Morph Ashlee l (09/16/14 5:00 AM) 09/16/2014 Former[facility] named [facility] RBC Morph Ashlee l (09/16/14 5:00 AM) 09/16/2014 Formerly named [facility] Platelet 185 133 - 450 09/16/2014 Formerly named [facility] RDW 13.9 11.5 - 14.5 09/16/2014 Former[facility] named [facility] RBC 3.42 4.20 - 5.40 09/16/2014 Former[facility] named [facility] Hct 32.9 36.0 - 48.0 09/16/2014 Former[facility] named [facility] Hgb 11.1 12.0 - 16.0 09/16/2014 Formerly named [facility] MCH 32.3 27.0 - 31.0 09/16/2014 Formerly named [facility] MCHC 33.6 32.0 - 36.0 09/16/2014 Formerly named [facility] MCV 96.2 80.0 - 98.0 09/16/2014 Formerly named [facility] MPV 10.9 7.4 - 10.4 09/16/2014 [facility] HEMATOLOGY WBC 4.2 3.7 - 10.4 09/16/2014 [facility] CHEM PANEL Lipase Lvl 131 73 - 393 09/15/2014 [facility] CHEM PANEL Magnesium Lvl 1.8 1.8 - 2.4 09/14/2014 [facility] CHEM PANEL Phosphorus 3.9 2.5 - 4.5 09/14/2014 [facility] HEMATOLOGY PTT 31.6 22.9 - 35.8 09/14/2014 <sup>9</sup>Interpretive Data: Heparin T herapeutic Range: 57 - 92 Seconds [facility] HEMATOLOGY PT 14.2 12.0 - 14.7 09/14/2014 [facility] HEMATOLOGY INR 1.09 0.85 - 1.17 09/14/2014 <sup>7</sup>Interpretive Data: RECOMMEND ED RANGES FOR PROTIME INR:
2.0-3.0 for most medical and surgical thromboembolic states.
2.5-3.5 for artificial heart valves and recurrent embolism.

INR SHOULD BE USED ONLY FOR PATIENTS ON STABLE ANTICOAGULANT THERAPY. [facility] CARDIAC ENZYMES Total CK 113 12 - 191 09/14/2014 [facility] CHEM PANEL Magnesium Lvl 1.9 1.8 - 2.4 09/14/2014 [facility] CHEM PANEL Lipase Lvl 178 73 - 393 09/14/2014 [facility] CHEM PANEL Phosphorus 3.0 2.5 - 4.5 09/14/2014 [facility] CHEM PANEL Amylase Lvl 43 25 - 115 09/14/2014 [facility] HEMATOLOGY INR 0.97 0.85 - 1.17 09/14/2014 <sup>8</sup>Interpretive Data: RECOMMEND ED RANGES FOR PROTIME INR:
2.0-3.0 for most medical and surgical thromboembolic states.
2.5-3.5 for artificial heart valves and recurrent embolism.

INR SHOULD BE USED ONLY FOR PATIENTS ON STABLE ANTICOAGULANT THERAPY. [facility] HEMATOLOGY PT 12.9 12.0 - 14.7 09/14/2014 Formerly named [facility] PTT 33.0 22.9 - 35.8 09/14/2014 <sup>10</sup>Interpretive Data: Heparin Therapeutic Range: 57 - 92 Seconds [facility] URINE AND STOOL UA Color Ltyellow 09/14/2014 [facility] URINE AND STOOL UA Urobilinogen <=1.0 mg/dL 0.1 - 1.0 09/14/2014 [facility] URINE AND STOOL UA Nitrite Negative (09/13/14 11:03 PM) Negative 09/14/2014 [facility] URINE AND STOOL UA Leuk Est Negative (09/13/14 11:03 PM) Negative 09/14/2014 [facility] URINE AND STOOL UA Sq Epi Occasional /LPF Few /LPF 09/14/2014 [facility] URINE AND STOOL UA Protein Negative mg/dL Negative mg/dL 09/14/2014 [facility] URINE AND STOOL UA Glucose Negative mg/dL Negative mg/dL 09/14/2014 [facility] URINE AND STOOL UA Ketones Negative mg/dL Negative mg/dL 09/14/2014 [facility] URINE AND STOOL UA Bili Negative *NA* (09/13/14 11:03 PM) Negative 09/14/2014 [facility] URINE AND STOOL UA Blood Negative (09/13/14 11:03 PM) Negative 09/14/2014 [facility] URINE AND STOOL UA pH 5.0 5.0 - 8.0 09/14/2014 [facility] URINE AND STOOL UA Spec Grav 1.020 <=1.030 09/14/2014 [facility] URINE AND STOOL UA Turbidity Clear (09/13/14 11:03 PM) Clear 09/14/2014 [facility] ENDOCRINOLOGY hCG Tot 4 12/16/2013 <sup>7</sup>Interpretive [...] 8,175 - 55,868
18 8,099 - 58,176 [facility] CHEM PANEL B/C Ratio 14 6 - 25 12/16/2013 [facility] CHEM PANEL A/G Ratio 1.1 0.7 - 1.6 12/16/2013 [facility] CHEM PANEL Globulin 3.0 2.0 - 4.0 12/16/2013 [facility] CHEM PANEL AGAP 7.9 10.0 - 20.0 12/16/2013 [facility] CHEM PANEL eGFR 94 12/16/2013 <sup>1</sup>Result [...] should be multiplied by the estimated BMI. [facility] CHEM PANEL Bili Total <0.1 0.2 - 1.3 12/16/2013 [facility] CHEM PANEL Alk Phos 262 39 - 136 12/16/2013 [facility] CHEM PANEL Total Protein 6.4 6.4 - 8.4 12/16/2013 [facility] CHEM PANEL Albumin Lvl 3.4 3.5 - 5.0 12/16/2013 [facility] CHEM PANEL Creatinine Lvl 0.8 0.5 - 1.4 12/16/2013 [facility] CHEM PANEL BUN 11 7 - 22 12/16/2013 [facility] CHEM PANEL Chloride Lvl 107 95 - 109 12/16/2013 [facility] CHEM PANEL ALT 332 0 - 65 12/16/2013 [facility] CHEM PANEL AST 142 0 - 37 12/16/2013 [facility] CHEM PANEL Sodium Lvl 139 135 - 145 12/16/2013 [facility] CHEM PANEL Glucose Lvl 93 70 - 99 12/16/2013 <sup>4</sup>Interpretive Data: Adult ref erence range values reflect the clinical guidelines
of the [place] [employer]. [facility] CHEM PANEL Potassium Lvl 5.9 3.5 - 5.1 12/16/2013 [facility] CHEM PANEL Calcium Lvl 9.5 8.5 - 10.5 12/16/2013 [facility] CHEM PANEL CO2 30 24 - 32 12/16/2013 [facility] HEMATOLOGY Segs-Bands # 1.4 1.5 - 8.1 12/16/2013 [facility] HEMATOLOGY Lymphocytes # 2.1 1.0 - 5.5 12/16/2013 [facility] HEMATOLOGY Eosinophils # 0.3 0.0 - 0.5 12/16/2013 [facility] HEMATOLOGY Monocytes # 0.4 0.0 - 0.8 12/16/2013 [facility] HEMATOLOGY Segs 33.9 45.0 - 75.0 12/16/2013 [facility] HEMATOLOGY Monocytes 8.6 2.0 - 12.0 12/16/2013 [facility] HEMATOLOGY Eosinophils 6.6 0.0 - 4.0 12/16/2013 [facility] HEMATOLOGY Basophils 0.9 0.0 - 1.0 12/16/2013 [facility] HEMATOLOGY Lymphocytes 50.0 20.0 - 40.0 12/16/2013 [facility] HEMATOLOGY MPV 10.1 7.4 - 10.4 12/16/2013 [facility] HEMATOLOGY RDW 14.3 11.5 - 14.5 12/16/2013 [facility] HEMATOLOGY Platelet 233 133 - 450 12/16/2013 [facility] HEMATOLOGY MCV 98.1 81.0 - 99.0 12/16/2013 [facility] HEMATOLOGY MCH 32.5 27.0 - 31.0 12/16/2013 [facility] named [facility] MCHC 33.1 32.0 - 36.0 12/16/2013 [facility] HEMATOLOGY Hct 33.6 36.0 - 48.0 12/16/2013 [facility] HEMATOLOGY Hgb 11.1 12.0 - 16.0 12/16/2013 [facility] HEMATOLOGY RBC 3.43 4.20 - 5.40 12/16/2013 [facility] HEMATOLOGY WBC 4.2 3.7 - 10.4 12/16/2013 [facility] CHEM PANEL eGFR 94 12/15/2013 <sup>2</sup>Result [...] should be multiplied by the estimated BMI. [facility] CHEM PANEL Bili Total 0.2 0.2 - 1.3 12/15/2013 [facility] CHEM PANEL ALT 329 0 - 65 12/15/2013 [facility] CHEM PANEL Total Protein 6.7 6.4 - 8.4 12/15/2013 [facility] CHEM PANEL CO2 30 24 - 32 12/15/2013 [facility] CHEM PANEL Calcium Lvl 9.2 8.5 - 10.5 12/15/2013 [facility] CHEM PANEL Albumin Lvl 3.7 3.5 - 5.0 12/15/2013 [facility] CHEM PANEL AST 116 0 - 37 12/15/2013 [facility] CHEM PANEL Alk Phos 291 39 - 136 12/15/2013 [facility] CHEM PANEL Chloride Lvl 104 95 - 109 12/15/2013 [facility] CHEM PANEL Potassium Lvl 5.2 3.5 - 5.1 12/15/2013 [facility] CHEM PANEL BUN 13 7 - 22 12/15/2013 [facility] CHEM PANEL Glucose Lvl 77 70 - 99 12/15/2013 <sup>5</sup>Interpretive Data: Adult ref erence range values reflect the clinical guidelines
of the [place] [employer]. [facility] CHEM PANEL Sodium Lvl 140 135 - 145 12/15/2013 [facility] CHEM PANEL Creatinine Lvl 0.8 0.5 - 1.4 12/15/2013 [facility] CHEM PANEL B/C Ratio 16 6 - 25 12/15/2013 [facility] CHEM PANEL AGAP 11.2 10.0 - 20.0 12/15/2013 [facility] CHEM PANEL A/G Ratio 1.2 0.7 - 1.6 12/15/2013 [facility] CHEM PANEL Globulin 3.0 2.0 - 4.0 12/15/2013 [facility] HEMATOLOGY Eosinophils # 0.2 0.0 - 0.5 12/15/2013 [facility] HEMATOLOGY Monocytes # 0.3 0.0 - 0.8 12/15/2013 [facility] HEMATOLOGY Lymphocytes # 1.8 1.0 - 5.5 12/15/2013 [facility] HEMATOLOGY Basophils 0.9 0.0 - 1.0 12/15/2013 [facility] HEMATOLOGY Segs-Bands # 0.9 1.5 - 8.1 12/15/2013 [facility] HEMATOLOGY Eosinophils 6.9 0.0 - 4.0 12/15/2013 [facility] HEMATOLOGY Lymphocytes 56.8 20.0 - 40.0 12/15/2013 [facility] HEMATOLOGY Monocytes 8.3 2.0 - 12.0 12/15/2013 [facility] HEMATOLOGY Segs 27.1 45.0 - 75.0 12/15/2013 [facility] HEMATOLOGY Hgb 11.7 12.0 - 16.0 12/15/2013 [facility] HEMATOLOGY Hct 35.0 36.0 - 48.0 12/15/2013 [facility] HEMATOLOGY Platelet 208 133 - 450 12/15/2013 [facility] HEMATOLOGY RDW 13.9 11.5 - 14.5 12/15/2013 [facility] HEMATOLOGY MCHC 33.3 32.0 - 36.0 12/15/2013 [facility] HEMATOLOGY MPV 10.0 7.4 - 10.4 12/15/2013 [facility] named [facility] MCH 32.7 27.0 - 31.0 12/15/2013 [facility] HEMATOLOGY MCV 98.1 81.0 - 99.0 12/15/2013 [facility] HEMATOLOGY WBC 3.2 3.7 - 10.4 12/15/2013 [facility] HEMATOLOGY RBC 3.56 4.20 - 5.40 12/15/2013 [facility] HEMATOLOGY MCV 98.3 81.0 - 99.0 12/14/2013 Formerly named [facility] MCH 32.0 27.0 - 31.0 12/14/2013 [facility] named [facility] RBC 3.70 4.20 - 5.40 12/14/2013 [facility] named [facility] Hct 36.4 36.0 - 48.0 12/14/2013 [facility] named [facility] Hgb 11.9 12.0 - 16.0 12/14/2013 [facility] named [facility] WBC 5.0 3.7 - 10.4 12/14/2013 [facility] named [facility] MCHC 32.6 32.0 - 36.0 12/14/2013 [facility] named [facility] RDW 14.1 11.5 - 14.5 12/14/2013 [facility] named [facility] MPV 10.5 7.4 - 10.4 12/14/2013 [facility] named [facility] Platelet 219 133 - 450 12/14/2013 [facility] named [facility] Eosinophils # 0.3 0.0 - 0.5 12/14/2013 [facility] named [facility] Basophils 0.8 0.0 - 1.0 12/14/2013 [facility] named [facility] Lymphocytes # 3.2 1.0 - 5.5 12/14/2013 [facility] named [facility] Segs-Bands # 1.3 1.5 - 8.1 12/14/2013 [facility] named [facility] Monocytes # 0.2 0.0 - 0.8 12/14/2013 [facility] named [facility] Plt Morph Ashlee l (12/14/13 5:17 AM) 12/14/2013 [facility] named [facility] Segs 25.5 45.0 - 75.0 12/14/2013 [facility] named [facility] Monocytes 4.1 2.0 - 12.0 12/14/2013 [facility] named [facility] Eosinophils 6.5 0.0 - 4.0 12/14/2013 [facility] named [facility] Lymphocytes 63.1 20.0 - 40.0 12/14/2013 [facility] named [facility] RBC Morph Ashlee l (12/14/13 5:17 AM) 12/14/2013 [facility] CHEM PANEL eGFR 111 12/13/2013 <sup>3</sup>Result [...] should be multiplied by the estimated BMI. [facility] CHEM PANEL Bili Total 0.2 0.2 - 1.3 12/13/2013 [facility] CHEM PANEL ALT 249 0 - 65 12/13/2013 [facility] CHEM PANEL Albumin Lvl 2.9 3.5 - 5.0 12/13/2013 [facility] CHEM PANEL Sodium Lvl 141 135 - 145 12/13/2013 [facility] CHEM PANEL BUN 11 7 - 22 12/13/2013 [facility] CHEM PANEL Creatinine Lvl 0.7 0.5 - 1.4 12/13/2013 [facility] CHEM PANEL CO2 27 24 - 32 12/13/2013 [facility] CHEM PANEL Calcium Lvl 8.2 8.5 - 10.5 12/13/2013 [facility] CHEM PANEL Total Protein 5.2 6.4 - 8.4 12/13/2013 [facility] CHEM PANEL AST 65 0 - 37 12/13/2013 [facility] CHEM PANEL Alk Phos 265 39 - 136 12/13/2013 [facility] CHEM PANEL Potassium Lvl 4.6 3.5 - 5.1 12/13/2013 [facility] CHEM PANEL Chloride Lvl 107 95 - 109 12/13/2013 [facility] CHEM PANEL Glucose Lvl 82 70 - 99 12/13/2013 <sup>6</sup>Interpretive Data: Adult ref erence range values reflect the clinical guidelines
of the [place] [employer]. [facility] CHEM PANEL B/C Ratio 16 6 - 25 12/13/2013 [facility] CHEM PANEL AGAP 11.6 10.0 - 20.0 12/13/2013 [facility] CHEM PANEL Globulin 2.3 2.0 - 4.0 12/13/2013 [facility] CHEM PANEL A/G Ratio 1.3 0.7 - 1.6 12/13/2013 [facility] ANEMIA STUDY Folate Lvl 10.8 >=3.0 ng/mL 12/13/2013 [facility] ANEMIA STUDY Vitamin B12 Lvl 295 254 - 1320 12/13/2013 [facility] ANEMIA STUDY Iron 114 30 - 160 12/13/2013 [facility] ANEMIA STUDY UIBC 260 110 - 370 12/13/2013 [facility] ANEMIA STUDY TIBC 374 228 - 428 12/13/2013 [facility] ANEMIA STUDY % Satur Fe 30 12 - 57 12/13/2013 [facility] ANEMIA STUDY Ferritin Lvl 25 5 - 204 12/13/2013 [facility] ANEMIA STUDY Ferritin Lvl 31 5 - 204 12/12/2013 [facility] HEMATOLOGY INR 0.95 0.85 - 1.17 12/12/2013 <sup>8</sup>Interpretive Data: RECOMMEND ED RANGES FOR PROTIME INR:
2.0-3.0 for most medical and surgical thromboembolic states.
2.5-3.5 for artificial heart valves and recurrent embolism.

INR SHOULD BE USED ONLY FOR PATIENTS ON STABLE ANTICOAGULANT THERAPY. [facility] HEMATOLOGY PT 12.6 12.0 - 14.7 12/12/2013 [facility] URINE AND STOOL UA Urobilinogen <=1.0 mg/dL 0.1 - 1.0 12/10/2013 [facility] URINE AND STOOL UA Color Ltyellow 12/10/2013 [facility] URINE AND STOOL UA Nitrite Negative (12/10/13 5:30 PM) Negative 12/10/2013 [facility] URINE AND STOOL UA Leuk Est Trace *ABN* (12/10/13 5:30 PM) Negative 12/10/2013 [facility] URINE AND STOOL UA Sq Epi Occasional /LPF Few /LPF 12/10/2013 [facility] URINE AND STOOL UA WBC 3 0 - 5 12/10/2013 [facility] URINE AND STOOL UA Spec Grav 1.004 <=1.030 12/10/2013 [facility] URINE AND STOOL UA Turbidity Clear (12/10/13 5:30 PM) Clear 12/10/2013 [facility] URINE AND STOOL UA pH 7.0 5.0 - 8.0 12/10/2013 [facility] URINE AND STOOL UA Bili Negative *NA* (12/10/13 5:30 PM) Negative 12/10/2013 [facility] URINE AND STOOL UA Ketones Negative mg/dL Negative mg/dL 12/10/2013 [facility] URINE AND STOOL UA Blood Negative (12/10/13 5:30 PM) Negative 12/10/2013 [facility] URINE AND STOOL UA Glucose Negative mg/dL Negative mg/dL 12/10/2013 [facility] URINE AND STOOL UA Protein Negative mg/dL Negative mg/dL 12/10/2013 [facility] CHEM PANEL Magnesium Lvl 1.9 1.8 - 2.4 12/10/2013 [facility] H pylori IgG <0.4 09/24/2013 <sup>3</sup>Interpretive Data: [...] it differentiate between active and past infection. [facility] URINE AND STOOL UA Color Ltyellow 09/19/2013 [facility] URINE AND STOOL UA Urobilinogen <=1.0 mg/dL 0.1 - 1.0 09/19/2013 [facility] URINE AND STOOL UA Spec Grav 1.008 <=1.030 09/19/2013 [facility] URINE AND STOOL UA Turbidity Clear (09/19/13 12:40 AM) Clear 09/19/2013 [facility] URINE AND STOOL UA Hyal Cast 6 0 - 2 09/19/2013 [facility] URINE AND STOOL UA Glucose Negative mg/dL Negative mg/dL 09/19/2013 [facility] URINE AND STOOL UA RBC <1 0 - 2 09/19/2013 [facility] URINE AND STOOL UA WBC 2 0 - 5 09/19/2013 [facility] URINE AND STOOL UA Blood Small *ABN* (09/19/13 12:40 AM) Negative 09/19/2013 [facility] URINE AND STOOL UA Ketones Trace mg/dL Negative mg/dL 09/19/2013 [facility] URINE AND STOOL UA Bili Negative *NA* (09/19/13 12:40 AM) Negative 09/19/2013 [facility] URINE AND STOOL UA Protein Negative mg/dL Negative mg/dL 09/19/2013 [facility] URINE AND STOOL UA pH 6.0 5.0 - 8.0 09/19/2013 [facility] URINE AND STOOL UA Sq Epi Occasional /LPF Few /LPF 09/19/2013 [facility] URINE AND STOOL UA Leuk Est Small *ABN* (09/19/13 12:40 AM) Negative 09/19/2013 [facility] URINE AND STOOL UA Nitrite Negative (09/19/13 12:40 AM) Negative 09/19/2013 [facility] CHEM PANEL A/G Ratio 1.3 0.7 - 1.6 09/19/2013 [facility] CHEM PANEL Globulin 3.1 2.0 - 4.0 09/19/2013 [facility] CHEM PANEL B/C Ratio 17 6 - 25 09/19/2013 [facility] CHEM PANEL AGAP 12.5 10.0 - 20.0 09/19/2013 [facility] CHEM PANEL eGFR 111 09/19/2013 <sup>1</sup>Result [...] should be multiplied by the estimated BMI. [facility] CHEM PANEL BUN 12 7 - 22 09/19/2013 [facility] CHEM PANEL Glucose Lvl 90 70 - 99 09/19/2013 <sup>2</sup>Interpretive Data: Adult ref erence range values reflect the clinical guidelines
of the [place] [employer]. [facility] CHEM PANEL Creatinine Lvl 0.7 0.5 - 1.4 09/19/2013 [facility] CHEM PANEL Bili Total 0.5 0.2 - 1.3 09/19/2013 [facility] CHEM PANEL AST 358 0 - 37 09/19/2013 [facility] CHEM PANEL Alk Phos 308 39 - 136 09/19/2013 [facility] CHEM PANEL Calcium Lvl 8.9 8.5 - 10.5 09/19/2013 [facility] CHEM PANEL CO2 25 24 - 32 09/19/2013 [facility] CHEM PANEL Albumin Lvl 4.0 3.5 - 5.0 09/19/2013 [facility] CHEM PANEL Total Protein 7.1 6.4 - 8.4 09/19/2013 [facility] CHEM PANEL ALT 330 0 - 65 09/19/2013 [facility] CHEM PANEL Potassium Lvl 3.5 3.5 - 5.1 09/19/2013 [facility] CHEM PANEL Sodium Lvl 136 135 - 145 09/19/2013 [facility] CHEM PANEL Chloride Lvl 102 95 - 109 09/19/2013 [facility] CHEM PANEL Magnesium Lvl 1.9 1.8 - 2.4 09/19/2013 [facility] HEMATOLOGY Platelet 300 133 - 450 09/19/2013 [facility] HEMATOLOGY MCHC 33.9 32.0 - 36.0 09/19/2013 [facility] MCH 31.9 27.0 - 31.0 09/19/2013 [facility] HEMATOLOGY MPV 9.0 7.4 - 10.4 09/19/2013 [facility] HEMATOLOGY RDW 13.7 11.5 - 14.5 09/19/2013 [facility] HEMATOLOGY Hct 35.9 36.0 - 48.0 09/19/2013 [facility] HEMATOLOGY Hgb 12.2 12.0 - 16.0 09/19/2013 [facility] HEMATOLOGY RBC 3.81 4.20 - 5.40 09/19/2013 [facility] HEMATOLOGY MCV 94.2 81.0 - 99.0 09/19/2013 [facility] HEMATOLOGY WBC 5.8 3.7 - 10.4 09/19/2013 [facility] HEMATOLOGY Basophils 0.3 0.0 - 1.0 09/19/2013 [facility] HEMATOLOGY Monocytes 7.2 2.0 - 12.0 09/19/2013 [facility] HEMATOLOGY Segs-Bands # 3.4 1.5 - 8.1 09/19/2013 [facility] HEMATOLOGY Lymphocytes 30.1 20.0 - 40.0 09/19/2013 [facility] HEMATOLOGY Segs 58.4 45.0 - 75.0 09/19/2013 [facility] HEMATOLOGY Monocytes # 0.4 0.0 - 0.8 09/19/2013 [facility] HEMATOLOGY Lymphocytes # 1.7 1.0 - 5.5 09/19/2013 [facility] HEMATOLOGY Basophils # 0.0 0.0 - 0.2 09/19/2013 [facility] HEMATOLOGY Eosinophils # 0.2 0.0 - 0.5 09/19/2013 [facility] HEMATOLOGY Eosinophils 4.0 0.0 - 4.0 09/19/2013 [facility] CHEM PANEL eGFR 111 09/13/2013 <sup>3</sup>Result [...] should be multiplied by the estimated BMI. [facility] CHEM PANEL AGAP 12.9 10.0 - 20.0 09/13/2013 [facility] CHEM PANEL CO2 27 24 - 32 09/13/2013 [facility] CHEM PANEL Calcium Lvl 8.6 8.5 - 10.5 09/13/2013 [facility] CHEM PANEL Creatinine Lvl 0.7 0.5 - 1.4 09/13/2013 [facility] CHEM PANEL Chloride Lvl 105 95 - 109 09/13/2013 [facility] CHEM PANEL BUN 9 7 - 22 09/13/2013 [facility] CHEM PANEL Potassium Lvl 3.9 3.5 - 5.1 09/13/2013 [facility] CHEM PANEL Sodium Lvl 141 135 - 145 09/13/2013 [facility] CHEM PANEL Glucose Lvl 126 70 - 99 09/13/2013 <sup>6</sup>Interpretive Data: Adult ref erence range values reflect the clinical guidelines
of the [place] [employer]. [facility] ELECTROLYTES Potassium Lvl 3.6 3.5 - 5.1 09/13/2013 [facility] ANEMIA STUDY Iron 41 30 - 160 09/13/2013 [facility] ANEMIA STUDY TIBC 415 228 - 428 09/13/2013 [facility] ANEMIA STUDY % [place] 10 12 - 57 09/13/2013 [facility] ANEMIA STUDY UIBC 374 110 - 370 09/13/2013 [facility] ANEMIA STUDY Vitamin B12 Lvl 158 254 - 1320 09/13/2013 [facility] BLOOD BANK RESULTS ABO/Rh O POS 09/13/2013 [facility] BLOOD BANK RESULTS Antibody Scrn Negative (09/12/13 9:45 PM) 09/13/2013 [facility] CHEM PANEL Bili Direct <0.1 0.0 - 0.3 09/13/2013 [facility] CHEM PANEL Magnesium Lvl 1.9 1.8 - 2.4 09/13/2013 [facility] CHEM PANEL Phosphorus 5.3 2.5 - 4.5 09/13/2013 [facility] CHEM PANEL Lipase Lvl 92 73 - 393 09/13/2013 [facility] CHEM PANEL Amylase Lvl 29 25 - 115 09/13/2013 [facility] CHEM PANEL Creatinine Lvl <0.1 mg/dL 0.5 - 1.4 09/13/2013 [facility] CHEM PANEL BUN 11 7 - 22 09/13/2013 [facility] CHEM PANEL Glucose Lvl 63 70 - 99 09/13/2013 <sup>7</sup>Interpretive Data: Adult ref erence range values reflect the clinical guidelines
of the [place] [employer]. [facility] CHEM PANEL Bili Total <0.1 mg/dL 0.2 - 1.3 09/13/2013 [facility] CHEM PANEL ASPARTATE TRANSAMINASE 82 0 - 37 09/13/2013 [facility] CHEM PANEL Alk Phos 225 39 - 136 09/13/2013 [facility] CHEM PANEL A/G Ratio 1.0 0.7 - 1.6 09/13/2013 [facility] CHEM PANEL ALANINE AMINOTRANSFERASE 119 0 - 65 09/13/2013 [facility] CHEM PANEL Globulin 4.0 2.0 - 4.0 09/13/2013 [facility] CHEM PANEL Albumin Lvl 3.9 3.5 - 5.0 09/13/2013 [facility] CHEM PANEL Calcium Lvl 8.6 8.5 - 10.5 09/13/2013 [facility] CHEM PANEL Total Protein 7.9 6.4 - 8.4 09/13/2013 [facility] CHEM PANEL AGAP 13.6 10.0 - 20.0 09/13/2013 [facility] CHEM PANEL CO2 30 24 - 32 09/13/2013 [facility] CHEM PANEL Chloride Lvl 101 95 - 109 09/13/2013 [facility] CHEM PANEL Potassium Lvl See N [...] is hemolyzed notified CHASE at 09/12/2013 22:42. [facility] CHEM PANEL Sodium Lvl 136 135 - 145 09/13/2013 [facility] CHEM PANEL B/C Ratio See N ote 5 (09/12/13 9:45 PM) 6 - 25 09/13/2013 <sup>5</sup>Result Comment: BUN/Cre is 110. Result may not be accurate. Redraw is recommended due to sample is hemolyzed. Notified Karen Haley at 09/12/2013 22:42 [facility] CHEM PANEL eGFR See N ote 4 (09/12/13 9:45 PM) 09/13/2013 <sup>4</sup>Result Comment: The eGFR result of 889 should be interpreted with caution due to Hemolyzed Sample. Report called to Silas Haley by CV at 09/12/2013 22:58. Recollection is recommended. Read Back Ok. [facility] HEMATOLOGY Retic Auto 1.1 0.5 - 1.5 09/13/2013 [facility] HEMATOLOGY Lymphocytes # 1.7 1.0 - 5.5 09/13/2013 [facility] HEMATOLOGY Basophils # 0.0 0.0 - 0.2 09/13/2013 [facility] HEMATOLOGY Eosinophils # 0.3 0.0 - 0.5 09/13/2013 [facility] HEMATOLOGY Monocytes # 0.3 0.0 - 0.8 09/13/2013 [facility] HEMATOLOGY Lymphocytes 37.3 20.0 - 40.0 09/13/2013 [facility] named [facility] Segs 48.8 45.0 - 75.0 09/13/2013 [facility] named [facility] Plt Morph Ashlee l (09/12/13 9:45 PM) 09/13/2013 [facility] named [facility] RBC Morph Ashlee l (09/12/13 9:45 PM) 09/13/2013 [facility] named [facility] Segs-Bands # 2.3 1.5 - 8.1 09/13/2013 [facility] named [facility] Basophils 0.8 0.0 - 1.0 09/13/2013 [facility] named [facility] Eosinophils 7.1 0.0 - 4.0 09/13/2013 [facility] named [facility] Monocytes 6.0 2.0 - 12.0 09/13/2013 [facility] named [facility] PTT 30.3 22.9 - 35.8 09/13/2013 <sup>9</sup>Interpretive Data: Heparin T herapeutic Range: 57 - 92 Seconds [facility] named [facility] INR 0.96 0.85 - 1.17 09/13/2013 <sup>8</sup>Interpretive Data: RECOMMEND ED RANGES FOR PROTIME INR:
2.0-3.0 for most medical and surgical thromboembolic states.
2.5-3.5 for artificial heart valves and recurrent embolism.

INR SHOULD BE USED ONLY FOR PATIENTS ON STABLE ANTICOAGULANT THERAPY. [facility] named [facility] PT 12.7 12.0 - 14.7 09/13/2013 [facility] named [facility] MPV 10.5 7.4 - 10.4 09/13/2013 [facility] named [facility] Platelet 302 133 - 450 09/13/2013 [facility] named [facility] RDW 14.4 11.5 - 14.5 09/13/2013 [facility] named [facility] MCH 31.8 27.0 - 31.0 09/13/2013 [facility] named [facility] MCV 96.0 81.0 - 99.0 09/13/2013 [facility] named [facility] Hct 35.2 36.0 - 48.0 09/13/2013 [facility] named [facility] WBC 4.7 3.7 - 10.4 09/13/2013 [facility] named [facility] MCHC 33.1 32.0 - 36.0 09/13/2013 [facility] named [facility] RBC 3.66 4.20 - 5.40 09/13/2013 [facility] named [facility] Hgb 11.6 12.0 - 16.0 09/13/2013 [facility] URINE AND STOOL UA Urobilinogen <=1.0 mg/dL 0.1 - 1.0 09/12/2013 [facility] URINE AND STOOL UA Color Ltyellow 09/12/2013 [facility] URINE AND STOOL UA Turbidity Clear (09/12/13 5:35 PM) Clear 09/12/2013 [facility] URINE AND STOOL UA Spec Grav 1.006 <=1.030 09/12/2013 [facility] URINE AND STOOL UA Bili Negative *NA* (09/12/13 5:35 PM) Negative 09/12/2013 [facility] URINE AND STOOL UA Ketones Negative mg/dL Negative mg/dL 09/12/2013 [facility] URINE AND STOOL UA Sq Epi Occasional /LPF Few /LPF 09/12/2013 [facility] URINE AND STOOL UA Leuk Est Large *ABN* (09/12/13 5:35 PM) Negative 09/12/2013 [facility] URINE AND STOOL UA RBC <1 0 - 2 09/12/2013 [facility] URINE AND STOOL UA Glucose Negative mg/dL Negative mg/dL 09/12/2013 [facility] URINE AND STOOL UA Protein Negative mg/dL Negative mg/dL 09/12/2013 [facility] URINE AND STOOL UA pH 7.0 5.0 - 8.0 09/12/2013 [facility] URINE AND STOOL UA Nitrite Negative (09/12/13 5:35 PM) Negative 09/12/2013 [facility] URINE AND STOOL UA Blood Negative (09/12/13 5:35 PM) Negative 09/12/2013 [facility] URINE AND STOOL UA WBC 29 0 - 5 09/12/2013 [facility] URINE CHEM U Preg Negat jose maria (09/12/13 5:35 PM) Negative 09/12/2013 [facility] CHEM PANEL B/C Ratio 8 6 - 25 09/10/2013 [facility] CHEM PANEL Globulin 2.4 2.0 - 4.0 09/10/2013 [facility] CHEM PANEL A/G Ratio 1.2 0.7 - 1.6 09/10/2013 [facility] CHEM PANEL eGFR 117 09/10/2013 <sup>1</sup>Result [...] PANEL AGAP 10.7 10.0 - 20.0 09/10/2013 [facility] CHEM PANEL Alk Phos 199 39 [...] values reflect the clinical guidelines
of the [place] [employer]. [facility] CHEM PANEL BUN 5 7 - 22 09/10/2013 [facility] CHEM PANEL Bili Direct <0.1 0.0 - 0.3 09/10/2013 [facility] CHEM PANEL Alk Phos 224 39 - 136 09/08/2013 [facility] CHEM PANEL AST 42 0 - 37 09/08/2013 [facility] CHEM PANEL ALT 136 0 - 65 09/08/2013 [facility] CHEM PANEL Bili Direct <0.1 0.0 - 0.3 09/08/2013 [facility] CHEM PANEL Bili Total 0.1 0.2 - 1.3 09/08/2013 [facility] CHEM PANEL Bili Indirect >0.0 0.0 - 1.0 09/08/2013 [facility] CHEM PANEL A/G Ratio 1.2 0.7 - 1.6 09/08/2013 [facility] CHEM PANEL Globulin 2.6 2.0 - 4.0 09/08/2013 [facility] CHEM PANEL Albumin Lvl 3.0 3.5 - 5.0 09/08/2013 [facility] CHEM PANEL Total Protein 5.6 6.4 - 8.4 09/08/2013 [facility] CHEM PANEL Alk Phos 268 39 - 136 09/07/2013 [facility] CHEM PANEL AST 31 0 - 37 09/07/2013 [facility] CHEM PANEL ALT 177 0 - 65 09/07/2013 [facility] CHEM PANEL Globulin 2.9 2.0 - 4.0 09/07/2013 [facility] CHEM PANEL A/G Ratio 1.2 0.7 - 1.6 09/07/2013 [facility] CHEM PANEL Bili Indirect >0.1 0.0 - 1.0 09/07/2013 [facility] CHEM PANEL Bili Total 0.2 0.2 - 1.3 09/07/2013 [facility] CHEM PANEL Bili Direct <0.1 0.0 - 0.3 09/07/2013 [facility] CHEM PANEL Total Protein 6.4 6.4 - 8.4 09/07/2013 [facility] CHEM PANEL Albumin Lvl 3.5 3.5 - 5.0 09/07/2013 [facility] CHEM PANEL Bili Indirect >0.2 0.0 - 1.0 09/06/2013 [facility] CHEM PANEL eGFR 117 09/04/2013 <sup>2</sup>Result [...] Sodium Lvl 141 135 - 145 09/04/2013 [facility] CHEM PANEL Glucose Lvl 73 70 - 99 09/04/2013 <sup>5</sup>Interpretive Data: Adult ref erence range values reflect the clinical guidelines
of the [place] [employer]. [facility] CHEM PANEL BUN 3 7 - 22 09/04/2013 [facility] CHEM PANEL Creatinine Lvl 0.6 0.5 - 1.4 09/04/2013 [facility] CHEM PANEL AGAP 11.1 10.0 - 20.0 09/04/2013 [facility] CHEM PANEL B/C Ratio 5 6 - 25 09/04/2013 [facility] CHEM PANEL Calcium Lvl 8.1 8.5 - 10.5 09/04/2013 [facility] CHEM PANEL Potassium Lvl 4.1 3.5 - 5.1 09/04/2013 [facility] CHEM PANEL CO2 25 24 - 32 09/04/2013 [facility] CHEM PANEL Chloride Lvl 109 95 - 109 09/04/2013 [facility] CHEM PANEL HSV 1 IgM NEGATIVE 09/04/2013 [facility] CHEM PANEL HSV 2 IgM NEGATIVE [...] its performance
characteristics have been determined by [facility]
[employer]. Performance characteristics refer to
the analytical performance of the test.
Test Performed at:
[facility]
[address] [place] [address] Deni Meng MD [facility] CMV IgM 0.1 09/04/2013 <sup>10</sup>Interpretive Data: Reference Ranges:
Non-reactive: <0.9 S/CO Ratio
Indeterminate: 0.9 - 1.0 S/CO Ratio
Reactive: >=1.1 S/CO Ratio [facility] A-1-AT 129 83 - 199 09/04/2013 [facility] AMA Ab Scr Negat jose maria (09/04/13 5:28 AM) Negative 09/04/2013 [facility] SMA Screen Negat jose maria (09/04/13 5:28 AM) Negative 09/04/2013 [facility] LIVER KIDNEY MICROSOME AB S. <20.0 09/04/2013 [...] with
hepatitis C infection.
Test Performed at:
[facility]
[id number]
[place] [address] Néstor Gomez MD, PhD [facility] Ceruloplasmin 22 20 - 60 09/04/2013 [facility] CHEM PANEL eGFR 117 09/03/2013 <sup>3</sup>Result [...] should be multiplied by the estimated BMI. [facility] CHEM PANEL Chloride Lvl 112 95 - 109 09/03/2013 [facility] CHEM PANEL CO2 27 24 - 32 09/03/2013 [facility] CHEM PANEL Calcium Lvl 8.1 8.5 - 10.5 09/03/2013 [facility] CHEM PANEL BUN 6 7 - 22 09/03/2013 [facility] CHEM PANEL Sodium Lvl 141 135 - 145 09/03/2013 [facility] CHEM PANEL Creatinine Lvl 0.6 0.5 - 1.4 09/03/2013 [facility] CHEM PANEL Potassium Lvl 4.0 3.5 - 5.1 09/03/2013 [facility] CHEM PANEL Glucose Lvl 61 70 - 99 09/03/2013 <sup>6</sup>Interpretive Data: Adult ref erence range values reflect the clinical guidelines
of the [place] [employer]. [facility] CHEM PANEL AGAP 6.0 10.0 - 20.0 09/03/2013 [facility] CHEM PANEL B/C Ratio 10 6 - 25 09/03/2013 [facility] HEMATOLOGY Anisocyte 1+ *ABN* (09/03/13 6:34 AM) None Seen 09/03/2013 [facility] HEMATOLOGY Elliptocyte Sligh t *ABN* (09/03/13 6:34 AM) None Seen 09/03/2013 [facility] HEMATOLOGY Basophils # 0.0 0.0 - 0.2 09/03/2013 [facility] HEMATOLOGY Eosinophils # 0.2 0.0 - 0.5 09/03/2013 [facility] named [facility] Monocytes # 0.2 0.0 - 0.8 09/03/2013 [facility] named [facility] Eosinophils 6.3 0.0 - 4.0 09/03/2013 [facility] named [facility] Basophils 1.0 0.0 - 1.0 09/03/2013 [facility] HEMATOLOGY Lymphocytes # 2.2 1.0 - 5.5 09/03/2013 [facility] HEMATOLOGY Segs-Bands # 0.7 1.5 - 8.1 09/03/2013 [facility] HEMATOLOGY Lymphocytes 64.7 20.0 - 40.0 09/03/2013 [facility] HEMATOLOGY Monocytes 5.8 2.0 - 12.0 09/03/2013 [facility] HEMATOLOGY Plt Morph Ashlee l (09/03/13 6:34 AM) 09/03/2013 [facility] HEMATOLOGY Segs 22.2 45.0 - 75.0 09/03/2013 [facility] HEMATOLOGY MPV 10.2 7.4 - 10.4 09/03/2013 [facility] HEMATOLOGY RBC 2.94 4.20 - 5.40 09/03/2013 [facility] HEMATOLOGY Hgb 9.6 12.0 - 16.0 09/03/2013 [facility] named [facility] Hct 28.0 36.0 - 48.0 09/03/2013 [facility] named [facility] MCV 95.2 81.0 - 99.0 09/03/2013 [facility] named [facility] MCH 32.5 27.0 - 31.0 09/03/2013 [facility] named [facility] MCHC 34.2 32.0 - 36.0 09/03/2013 [facility] named [facility] Platelet 195 133 - 450 09/03/2013 [facility] HEMATOLOGY RDW 14.2 11.5 - 14.5 09/03/2013 [facility] HEMATOLOGY WBC 3.4 3.7 - 10.4 09/03/2013 [facility] IMMUNOLOGY Hep B Core IgM Negat jose maria *NA* (09/03/13 6:34 AM) Negative 09/03/2013 [facility] IMMUNOLOGY Hep A IgM Negat jose maria *NA* (09/03/13 6:34 AM) Negative 09/03/2013 [facility] IMMUNOLOGY Hep Bs Ag Negat jose maria *NA* (09/03/13 6:34 AM) Negative 09/03/2013 [facility] IMMUNOLOGY Hep C Ab Negat jose maria *NA* (09/03/13 6:34 AM) Negative 09/03/2013 [facility] IMMUNOLOGY MARVIN Negat jose maria (09/03/13 6:34 AM) Negative 09/03/2013 [facility] CHEM PANEL Lipase Lvl 170 73 - 393 09/02/2013 <sup>8</sup>Result Comment: Collection d ate/time has been modified to: 00:53:00. Previous collection date/time: 00:53:00. [facility] CHEM PANEL Amylase Lvl 54 25 - 115 09/02/2013 <sup>7</sup>Result Comment: Collection d ate/time has been modified to: 00:53:00. Previous collection date/time: 00:53:00. [facility] HEMATOLOGY Segs 33.4 45.0 - 75.0 09/02/2013 <sup>22</sup>Result Comment: Collection date/time has been modified to: 00:53:00. Previous collection date/time: 00:53:00. [facility] HEMATOLOGY Monocytes 8.5 2.0 - 12.0 09/02/2013 <sup>24</sup>Result Comment: Collection date/time has been modified to: 00:53:00. Previous collection date/time: 00:53:00. [facility] HEMATOLOGY Lymphocytes 54.8 20.0 - 40.0 09/02/2013 <sup>23</sup>Result Comment: Collection date/time has been modified to: 00:53:00. Previous collection date/time: 00:53:00. [facility] HEMATOLOGY Eosinophils # 0.1 0.0 - 0.5 09/02/2013 <sup>30</sup>Result Comment: Collection date/time has been modified to: 00:53:00. Previous collection date/time: 00:53:00. [facility] HEMATOLOGY Basophils # 0.0 0.0 - 0.2 09/02/2013 <sup>31</sup>Result Comment: Collection date/time has been modified to: 00:53:00. Previous collection date/time: 00:53:00. [facility] HEMATOLOGY Segs-Bands # 1.7 1.5 - 8.1 09/02/2013 <sup>27</sup>Result Comment: Collection date/time has been modified to: 00:53:00. Previous collection date/time: 00:53:00. [facility] Monocytes # 0.4 0.0 - 0.8 09/02/2013 <sup>29</sup>Result Comment: Collection date/time has been modified to: 00:53:00. Previous collection date/time: 00:53:00. [facility] Basophils 0.5 0.0 - 1.0 09/02/2013 <sup>26</sup>Result Comment: Collection date/time has been modified to: 00:53:00. Previous collection date/time: 00:53:00. [facility] Lymphocytes # 2.8 1.0 - 5.5 09/02/2013 <sup>28</sup>Result Comment: Collection date/time has been modified to: 00:53:00. Previous collection date/time: 00:53:00. [facility] Eosinophils 2.8 0.0 - 4.0 09/02/2013 <sup>25</sup>Result Comment: Collection date/time has been modified to: 00:53:00. Previous collection date/time: 00:53:00. [facility] MPV 10.2 7.4 - 10.4 09/02/2013 <sup>21</sup>Result Comment: Collection date/time has been modified to: 00:53:00. Previous collection date/time: 00:53:00. [facility] Platelet 288 133 - 450 09/02/2013 <sup>20</sup>Result Comment: Collection date/time has been modified to: 00:53:00. Previous collection date/time: 00:53:00. [facility] RBC 3.93 4.20 - 5.40 09/02/2013 <sup>13</sup>Result Comment: Collection date/time has been modified to: 00:53:00. Previous collection date/time: 00:53:00. [facility] Hgb 12.5 12.0 - 16.0 09/02/2013 <sup>14</sup>Result Comment: Collection date/time has been modified to: 00:53:00. Previous collection date/time: 00:53:00. [facility] WBC 5.0 3.7 - 10.4 09/02/2013 <sup>12</sup>Result Comment: Collection date/time has been modified to: 00:53:00. Previous collection date/time: 00:53:00. [facility] MCHC 33.7 32.0 - 36.0 09/02/2013 <sup>18</sup>Result Comment: Collection date/time has been modified to: 00:53:00. Previous collection date/time: 00:53:00. [facility] MCH 31.9 27.0 - 31.0 09/02/2013 <sup>17</sup>Result Comment: Collection date/time has been modified to: 00:53:00. Previous collection date/time: 00:53:00. [facility] RDW 14.0 11.5 - 14.5 09/02/2013 <sup>19</sup>Result Comment: Collection date/time has been modified to: 00:53:00. Previous collection date/time: 00:53:00. [facility] named [facility] MCV 94.6 81.0 - 99.0 09/02/2013 <sup>16</sup>Result Comment: Collection date/time has been modified to: 00:53:00. Previous collection date/time: 00:53:00. [facility] Hct 37.2 36.0 - 48.0 09/02/2013 <sup>15</sup>Result Comment: Collection date/time has been modified to: 00:53:00. Previous collection date/time: 00:53:00. [facility] URINE AND STOOL UA Sq Epi Occasional /LPF Few /LPF 09/02/2013 [facility] URINE AND STOOL UA Leuk Est Small *ABN* (09/01/13 11:24 PM) Negative 09/02/2013 [facility] URINE AND STOOL UA Blood Negative (09/01/13 11:24 PM) Negative 09/02/2013 [facility] URINE AND STOOL UA Bili Negative *NA* (09/01/13 11:24 PM) Negative 09/02/2013 [facility] URINE AND STOOL UA Ketones Negative mg/dL Negative mg/dL 09/02/2013 [facility] URINE AND STOOL UA pH 5.0 5.0 - 8.0 09/02/2013 [facility] URINE AND STOOL UA Nitrite Negative (09/01/13 11:24 PM) Negative 09/02/2013 [facility] URINE AND STOOL UA Protein Negative mg/dL Negative mg/dL 09/02/2013 [facility] URINE AND STOOL UA Glucose Negative mg/dL Negative mg/dL 09/02/2013 [facility] URINE AND STOOL UA WBC 8 0 - 5 09/02/2013 [facility] URINE AND STOOL UA RBC <1 0 - 2 09/02/2013 [facility] URINE AND STOOL UA Color Ltyellow 09/02/2013 [facility] URINE AND STOOL UA Urobilinogen <=1.0 mg/dL 0.1 - 1.0 09/02/2013 [facility] URINE AND STOOL UA Spec Grav 1.020 <=1.030 09/02/2013 [facility] URINE AND STOOL UA Turbidity Clear (09/01/13 11:24 PM) Clear 09/02/2013 [facility] URINE CHEM U Preg Negat jose maria (09/01/13 11:24 PM) Negative 09/02/2013 [facility] CHEM PANEL Calcium Lvl 8.9 8.5 - 10.5 09/01/2013 [facility] CHEM PANEL Bili Total 0.1 0.2 - 1.3 09/01/2013 [facility] CHEM PANEL eGFR 111 09/01/2013 <sup>1</sup>Result [...] should be multiplied by the estimated BMI. [facility] CHEM PANEL AST 219 0 - 37 09/01/2013 [facility] CHEM PANEL Total Protein 6.9 6.4 - 8.4 09/01/2013 [facility] CHEM PANEL CO2 25 24 - 32 09/01/2013 [facility] CHEM PANEL Chloride Lvl 105 95 - 109 09/01/2013 [facility] CHEM PANEL Creatinine Lvl 0.7 0.5 - 1.4 09/01/2013 [facility] CHEM PANEL Sodium Lvl 139 135 - 145 09/01/2013 [facility] CHEM PANEL Potassium Lvl 3.4 3.5 - 5.1 09/01/2013 [facility] CHEM PANEL BUN 12 7 - 22 09/01/2013 [facility] CHEM PANEL ALT 535 0 - 65 09/01/2013 [facility] CHEM PANEL Glucose Lvl 95 70 - 99 09/01/2013 <sup>2</sup>Interpretive Data: Adult ref erence range values reflect the clinical guidelines
of the [place] [employer]. [facility] CHEM PANEL Albumin Lvl 3.8 3.5 - 5.0 09/01/2013 [facility] CHEM PANEL Alk Phos 314 39 - 136 09/01/2013 [facility] CHEM PANEL B/C Ratio 17 6 - 25 09/01/2013 [facility] CHEM PANEL A/G Ratio 1.2 0.7 - 1.6 09/01/2013 [facility] CHEM PANEL Globulin 3.1 2.0 - 4.0 09/01/2013 [facility] CHEM PANEL AGAP 12.4 10.0 - 20.0 09/01/2013 [facility] HEMATOLOGY Eosinophils # 0.2 0.0 - 0.5 09/01/2013 [facility] HEMATOLOGY Basophils # 0.0 0.0 - 0.2 09/01/2013 [facility] HEMATOLOGY Basophils 0.7 0.0 - 1.0 09/01/2013 [facility] HEMATOLOGY Lymphocytes # 2.1 1.0 - 5.5 09/01/2013 [facility] HEMATOLOGY Segs-Bands # 0.5 1.5 - 8.1 09/01/2013 [facility] HEMATOLOGY Monocytes # 0.2 0.0 - 0.8 09/01/2013 [facility] HEMATOLOGY Lymphocytes 66.6 20.0 - 40.0 09/01/2013 [facility] HEMATOLOGY Segs 16.9 45.0 - 75.0 09/01/2013 [facility] HEMATOLOGY Monocytes 8.1 2.0 - 12.0 09/01/2013 [facility] HEMATOLOGY Eosinophils 7.7 0.0 - 4.0 09/01/2013 [facility] MCHC 33.6 32.0 - 36.0 09/01/2013 [facility] named [facility] MCH 31.7 27.0 - 31.0 09/01/2013 [facility] HEMATOLOGY Platelet 263 133 - 450 09/01/2013 [facility] HEMATOLOGY RDW 13.7 11.5 - 14.5 09/01/2013 [facility] HEMATOLOGY Hgb 11.4 12.0 - 16.0 09/01/2013 [facility] HEMATOLOGY RBC 3.58 4.20 - 5.40 09/01/2013 [facility] named [facility] Hct 33.8 36.0 - 48.0 09/01/2013 [facility] HEMATOLOGY MCV 94.3 81.0 - 99.0 09/01/2013 [facility] HEMATOLOGY MPV 10.1 7.4 - 10.4 09/01/2013 [facility] HEMATOLOGY WBC 3.1 3.7 - 10.4 09/01/2013 [facility] IMMUNOLOGY CDC HIV 4th GEN Negat jose maria (09/01/13 12:53 AM) Negative 09/01/2013 [facility] URINE AND STOOL UA Color Ltyellow 09/01/2013 [facility] URINE AND STOOL UA Urobilinogen <=1.0 mg/dL 0.1 - 1.0 09/01/2013 [facility] URINE AND STOOL UA WBC 1 0 - 5 09/01/2013 [facility] URINE AND STOOL UA RBC 1 0 - 2 09/01/2013 [facility] URINE AND STOOL UA Sq Epi Occasional /LPF Few /LPF 09/01/2013 [facility] URINE AND STOOL UA Glucose Negative mg/dL Negative mg/dL 09/01/2013 [facility] URINE AND STOOL UA Ketones Negative mg/dL Negative mg/dL 09/01/2013 [facility] URINE AND STOOL UA pH 5.0 5.0 - 8.0 09/01/2013 [facility] URINE AND STOOL UA Protein Negative mg/dL Negative mg/dL 09/01/2013 [facility] URINE AND STOOL UA Bili Negative *NA* (08/31/13 11:50 PM) Negative 09/01/2013 [facility] URINE AND STOOL UA Nitrite Negative (08/31/13 11:50 PM) Negative 09/01/2013 [facility] URINE AND STOOL UA Leuk Est Trace *ABN* (08/31/13 11:50 PM) Negative 09/01/2013 [facility] URINE AND STOOL UA Blood Negative (08/31/13 11:50 PM) Negative 09/01/2013 [facility] URINE AND STOOL UA Turbidity Clear (08/31/13 11:50 PM) Clear 09/01/2013 [facility] URINE AND STOOL UA Spec Grav 1.014 <=1.030 09/01/2013 [facility] URINE CHEM U Preg Negat jose maria (08/31/13 11:50 PM) Negative 09/01/2013 [facility] URINALYSIS UA Bacteria Occas ional /HPF None Seen 06/06/2013 [facility] URINALYSIS UA RBC 1 0 - 2 06/06/2013 Normal [facility] URINALYSIS UA Urobilinogen <=1.0 mg/dL 0.1 - 1.0 06/06/2013 [facility] URINALYSIS UA Color Ltyellow 06/06/2013 [facility] URINALYSIS UA Turbidity Clear (06/05/2013 20:57:00) Clear 06/06/2013 Normal [facility] URINALYSIS UA Spec Grav 1.005 <=1.030 06/06/2013 Normal [facility] URINALYSIS UA pH 7.0 5.0 - 8.0 06/06/2013 Normal [facility] URINALYSIS UA Protein Negat jose maria [...] *ABN* (06/05/2013 20:57:00) Negati ve 06/06/2013 ABN [facility] URINALYSIS UA Sq Epi Occas ional /LPF Few 06/06/2013 [facility] VIRAL - SEROLOGY Influ A Negative (06/05/2013 20:41:00) Negati ve 06/06/2013 Normal [facility] VIRAL - SEROLOGY Influ B Negative [...] either viral culture or PCR is warranted. [facility] CHEMISTRY Magnesium Lvl 2.0 1.8 - 2.4 06/06/2013 Normal [facility] CHEMISTRY eGFR 94 06/06/2013 <sup>2</sup>Result Comment: [...] should be multiplied by the estimated BMI. [facility] CHEMISTRY ASPARTATE TRANSAMINASE 18 0 - 37 06/06/2013 Normal [facility] CHEMISTRY Potassium Lvl 3.6 3.5 - 5.1 06/06/2013 Normal [facility] CHEMISTRY CO2 30 24 - 32 06/06/2013 Normal [facility] CHEMISTRY Chloride Lvl 106 95 - 109 06/06/2013 Normal [facility] CHEMISTRY ALANINE AMINOTRANSFERASE 5 2 0 - 65 06/06/2013 Normal [facility] CHEMISTRY Albumin Lvl 3.9 3.5 - 5.0 06/06/2013 Normal [facility] CHEMISTRY Calcium Lvl 8.7 8.5 - 10.5 06/06/2013 Normal [facility] CHEMISTRY Sodium Lvl 142 135 - 145 06/06/2013 Normal [facility] CHEMISTRY Creatinine Lvl 0.8 0.5 - 1.4 06/06/2013 Normal [facility] CHEMISTRY Glucose Lvl 106 70 - 99 06/06/2013 [facility] <sup>3</sup>Interpretive Data: Adult ref erence range values reflect the clinical guidelines
of the [place] [employer]. [facility] CHEMISTRY BUN 15 7 - 22 06/06/2013 Normal [facility] CHEMISTRY Alk Phos 139 39 - 136 06/06/2013 [facility] CHEMISTRY Bili Total 0.2 0.2 - 1.3 06/06/2013 Normal [facility] CHEMISTRY Total Protein 7.3 6.4 - 8.4 06/06/2013 Normal [facility] CHEMISTRY B/C Ratio 19 6 - 25 06/06/2013 Normal [facility] CHEMISTRY AGAP 9.6 10.0 - 20.0 06/06/2013 LOW [facility] CHEMISTRY Globulin 3.4 2.0 - 4.0 06/06/2013 Normal [facility] CHEMISTRY A/G Ratio 1.1 0.7 - 1.6 06/06/2013 Normal [facility] HEMATOLOGY Sed Rate 25 0 - 20 06/06/2013 HI [facility] HEMATOLOGY MCV 94.2 81.0 - 99.0 06/06/2013 Normal [facility] HEMATOLOGY MCHC 32.7 32.0 - 36.0 06/06/2013 Normal [facility] HEMATOLOGY MCH 30.8 27.0 - 31.0 06/06/2013 Normal [facility] HEMATOLOGY RDW 14.2 11.5 - 14.5 06/06/2013 Normal [facility] HEMATOLOGY MPV 9.0 7.4 - 10.4 06/06/2013 Normal [facility] HEMATOLOGY Platelet 317 133 - 450 06/06/2013 Normal [facility] HEMATOLOGY Hgb 12.0 12.0 - 16.0 06/06/2013 Normal [facility] HEMATOLOGY Hct 36.7 36.0 - 48.0 06/06/2013 Normal [facility] HEMATOLOGY RBC X 10x6 3.89 4.20 - 5.40 06/06/2013 LOW [facility] HEMATOLOGY WBC X 10x3 4.2 3.7 - 10.4 06/06/2013 Normal [facility] HEMATOLOGY Lymphocytes # 1.9 1.0 - 5.5 06/06/2013 Normal [facility] HEMATOLOGY Basophils # 0.0 0.0 - 0.2 06/06/2013 Normal [facility] HEMATOLOGY Monocytes # 0.3 0.0 - 0.8 06/06/2013 Normal [facility] HEMATOLOGY Segs 43.2 45.0 - 75.0 06/06/2013 LOW [facility] HEMATOLOGY Eosinophils 2.4 0.0 - 4.0 06/06/2013 Normal [facility] HEMATOLOGY Eosinophils # 0.1 0.0 - 0.5 06/06/2013 Normal [facility] HEMATOLOGY Segs-Bands # 1.8 1.5 - 8.1 06/06/2013 Normal [facility] HEMATOLOGY Basophils 0.7 0.0 - 1.0 06/06/2013 Normal [facility] HEMATOLOGY Monocytes 6.8 2.0 - 12.0 06/06/2013 Normal [facility] HEMATOLOGY Lymphocytes 46.9 20.0 - 40.0 06/06/2013 [facility] CHEMISTRY CK MB Index <0.6 0.0 - 2.5 02/12/2013 Normal [facility] CHEMISTRY Troponin-I <0.02 0.00 - 0.40 02/12/2013 Normal [facility] CHEMISTRY CK MB <0.5 0.5 - 3.6 02/12/2013 Normal [facility] CHEMISTRY Total CK 88 12 - 191 02/12/2013 Normal [facility] CHEMISTRY CK MB Index <0.6 0.0 - 2.5 02/12/2013 Normal [facility] CHEMISTRY Troponin-I <0.02 0.00 - 0.40 02/12/2013 Normal [facility] CHEMISTRY Total CK 86 12 - 191 02/12/2013 Normal [facility] CHEMISTRY CK MB <0.5 0.5 - 3.6 02/12/2013 Normal [facility] CHEMISTRY eGFR 94 02/12/2013 NA <sup>1</sup>Result [...] should be multiplied by the estimated BMI. [facility] CHEMISTRY Globulin 3.3 2.0 - 4.0 02/12/2013 Normal [facility] CHEMISTRY A/G Ratio 1.3 0.7 - 1.6 02/12/2013 Normal [facility] CHEMISTRY B/C Ratio 15 6 - 25 02/12/2013 Normal [facility] CHEMISTRY AGAP 12.8 10.0 - 20.0 02/12/2013 Normal [facility] CHEMISTRY Alk Phos 152 39 - 136 02/12/2013 HI [facility] CHEMISTRY Bili Total 0.3 0.2 - 1.3 02/12/2013 Normal [facility] CHEMISTRY AST 14 0 - 37 02/12/2013 Normal [facility] CHEMISTRY Creatinine Lvl 0.8 0.5 - 1.4 02/12/2013 Normal [facility] CHEMISTRY Glucose Lvl 81 70 - 99 02/12/2013 Normal <sup>2</sup>Interpretive Data: Adult ref erence range values reflect the clinical guidelines
of the [place] [employer]. [facility] CHEMISTRY BUN 12 7 - 22 02/12/2013 Normal [facility] CHEMISTRY Total Protein 7.6 6.4 - 8.4 02/12/2013 Normal [facility] CHEMISTRY Albumin Lvl 4.3 3.5 - 5.0 02/12/2013 Normal [facility] CHEMISTRY CO2 28 24 - 32 02/12/2013 Normal [facility] CHEMISTRY Calcium Lvl 9.8 8.5 - 10.5 02/12/2013 Normal [facility] CHEMISTRY ALT 50 0 - 65 02/12/2013 Normal [facility] CHEMISTRY Chloride Lvl 106 95 - 109 02/12/2013 Normal [facility] CHEMISTRY Sodium Lvl 143 135 - 145 02/12/2013 Normal [facility] CHEMISTRY Potassium Lvl 3.8 3.5 - 5.1 02/12/2013 Normal [facility] HEMATOLOGY Basophils # 0.0 0.0 - 0.2 02/12/2013 Normal [facility] HEMATOLOGY Eosinophils # 0.1 0.0 - 0.5 02/12/2013 Normal [facility] HEMATOLOGY Eosinophils 2.2 0.0 - 4.0 02/12/2013 Normal [facility] HEMATOLOGY Lymphocytes # 1.9 1.0 - 5.5 02/12/2013 Normal [facility] HEMATOLOGY Monocytes # 0.3 0.0 - 0.8 02/12/2013 Normal [facility] HEMATOLOGY Monocytes 7.1 2.0 - 12.0 02/12/2013 Normal [facility] HEMATOLOGY Basophils 0.6 0.0 - 1.0 02/12/2013 Normal [facility] HEMATOLOGY Segs-Bands # 1.9 1.5 - 8.1 02/12/2013 Normal [facility] HEMATOLOGY Lymphocytes 44.8 20.0 - 40.0 02/12/2013 [facility] HEMATOLOGY Segs 45.3 45.0 - 75.0 02/12/2013 Normal [facility] HEMATOLOGY MCHC 32.6 32.0 - 36.0 02/12/2013 Normal [facility] HEMATOLOGY MCH 31.0 27.0 - 31.0 02/12/2013 Normal [facility] HEMATOLOGY RDW 14.3 11.5 - 14.5 02/12/2013 Normal [facility] HEMATOLOGY Platelet 324 133 - 450 02/12/2013 Normal [facility] HEMATOLOGY MPV 10.0 7.4 - 10.4 02/12/2013 Normal [facility] HEMATOLOGY WBC 4.3 3.7 - 10.4 02/12/2013 Normal [facility] HEMATOLOGY Hgb 12.5 12.0 - 16.0 02/12/2013 Normal [facility] HEMATOLOGY Hct 38.2 36.0 - 48.0 02/12/2013 Normal [facility] HEMATOLOGY MCV 95.1 81.0 - 99.0 02/12/2013 Normal [facility] HEMATOLOGY RBC 4.02 4.20 - 5.40 02/12/2013 LOW [facility] URINALYSIS UA Color Ltyellow 02/12/2013 NA [facility] URINALYSIS UA Urobilinogen 0.1 - 1.0 02/12/2013 NA [facility] URINALYSIS UA Sq Epi Occas ional /LPF *NA* (02/11/2013 20:54:00) Few 02/12/2013 [facility] URINALYSIS UA Bacteria Few / HPF *NA* (02/11/2013 20:54:00) None S een 02/12/2013 [facility] URINALYSIS UA WBC 7 0 [...] maria (02/11/2013 20:54:00) Negati ve 02/12/2013 Normal [facility] URINALYSIS UA Leuk Est Large *ABN* (02/11/2013 20:54:00) Negati ve 02/12/2013 ABN [facility] URINALYSIS UA Nitrite Negat jose maria (02/11/2013 20:54:00) Negati ve 02/12/2013 Normal [facility] URINALYSIS UA Protein Negat jose maria mg/dL (02/11/2013 20:54:00) Negati ve 02/12/2013 Normal [facility] URINALYSIS UA Turbidity Clear (02/11/2013 20:54:00) Clear 02/12/2013 Normal [facility] URINALYSIS UA pH 5.0 5.0 - 8.0 02/12/2013 Normal [facility] URINALYSIS UA RBC 0-2 / HPF (09/28/2012 00:45:00) 0 - 2 09/28/2012 Normal [facility] URINALYSIS Micro? Perfo rmed (09/28/2012 00:45:00) 09/28/2012 Normal [facility] URINALYSIS UA Leuk Est Small *ABN* (09/28/2012 00:45:00) Negati ve 09/28/2012 ABN [facility] URINALYSIS UA Bacteria Few / HPF (09/28/2012 00:45:00) None S een 09/28/2012 Normal [facility] URINALYSIS UA WBC 6-10 /HPF *ABN* (09/28/2012 00:45:00) None S een 09/28/2012 ABN [facility] URINALYSIS UA Sq Epi Few / LPF (09/28/2012 00:45:00) Few 09/28/2012 Normal [facility] URINALYSIS UA Protein Negat jose maria (09/28/2012 00:45:00) Negati ve 09/28/2012 Normal [facility] URINALYSIS UA Urobilinogen 0.2 0.1 - 1.0 09/28/2012 Normal [facility] URINALYSIS UA Blood Negat jose maria (09/28/2012 00:45:00) Negati ve 09/28/2012 Normal [facility] URINALYSIS UA Nitrite Negat jose maria (09/28/2012 00:45:00) Negati ve 09/28/2012 Normal [facility] URINALYSIS UA Ketones Negat jose maria *NA* (09/28/2012 00:45:00) Negati ve 09/28/2012 NA [facility] URINALYSIS UA pH 6.0 5.0 - 8.0 09/28/2012 Normal [facility] URINALYSIS UA Bili Negat jose maria *NA* (09/28/2012 00:45:00) Negati ve 09/28/2012 NA [facility] URINALYSIS UA Mucus Moder ate /LPF *ABN* (09/28/2012 00:45:00) None S een 09/28/2012 ABN [facility] URINALYSIS UA Glucose Negat jose maria (09/28/2012 00:45:00) Negati ve 09/28/2012 Normal [facility] URINALYSIS UA Spec Grav 1.020 <=1.030 09/28/2012 Normal [facility] URINALYSIS UA Turbidity Sligh t Cloudy (09/28/2012 00:45:00) Clear 09/28/2012 Normal [facility] URINALYSIS UA Color Yello w *NA* (09/28/2012 00:45:00) Yellow 09/28/2012 NA [facility] CHEMISTRY Phosphorus 4.3 2.5 - 4.5 09/28/2012 Normal [facility] CHEMISTRY Magnesium Lvl 1.7 1.8 - 2.4 09/28/2012 LOW [facility] CHEMISTRY eGFR 95 09/28/2012 NA <sup>1</sup>Result Comment: [...] should be multiplied by the estimated BMI. [facility] CHEMISTRY BUN 12 7 - 22 09/28/2012 Normal [facility] CHEMISTRY Glucose Lvl 94 70 - 99 09/28/2012 Normal <sup>2</sup>Interpretive Data: Adult ref erence range values reflect the clinical guidelines
of the [place] [employer]. [facility] CHEMISTRY CO2 31 24 - 32 09/28/2012 Normal [facility] CHEMISTRY Sodium Lvl 143 135 - 145 09/28/2012 Normal [facility] CHEMISTRY Creatinine Lvl 0.8 0.5 - 1.4 09/28/2012 Normal [facility] CHEMISTRY Chloride Lvl 105 95 - 109 09/28/2012 Normal [facility] CHEMISTRY Potassium Lvl 4.6 3.5 - 5.1 09/28/2012 Normal [facility] CHEMISTRY Calcium Lvl 9.7 8.5 - 10.5 09/28/2012 Normal [facility] CHEMISTRY AGAP 11.6 10.0 - 20.0 09/28/2012 Normal [facility] HEMATOLOGY Basophils # 0.1 0.0 - 0.2 09/28/2012 Normal [facility] HEMATOLOGY Monocytes # 0.3 0.0 - 0.8 09/28/2012 Normal [facility] HEMATOLOGY Eosinophils # 0.1 0.0 - 0.5 09/28/2012 Normal [facility] HEMATOLOGY Monocytes 6.6 2.0 - 12.0 09/28/2012 [facility] HEMATOLOGY Lymphocytes 44.0 20.0 - 40.0 09/28/[address] [facility] HEMATOLOGY Segs 46.4 45.0 - 75.0 09/28/2012 Normal [facility] HEMATOLOGY Lymphocytes # 2.1 1.0 - 5.5 09/28/2012 Normal [facility] HEMATOLOGY Eosinophils 1.3 0.0 - 4.0 09/28/2012 Normal [facility] HEMATOLOGY Basophils 1.7 0.0 - 1.0 09/28/[address] [facility] HEMATOLOGY Segs-Bands # 2.1 1.5 - 8.1 09/28/2012 Normal [facility] HEMATOLOGY MCV 95.6 81.0 - 99.0 09/28/2012 Normal [facility] HEMATOLOGY RBC 3.79 4.20 - 5.40 09/28/2012 LOW [facility] HEMATOLOGY Hgb 12.2 12.0 - 16.0 09/28/2012 Normal [facility] HEMATOLOGY Hct 36.2 36.0 - 48.0 09/28/2012 Normal [facility] HEMATOLOGY WBC 4.7 3.7 - 10.4 09/28/2012 Normal [facility] HEMATOLOGY MPV 9.5 7.4 - 10.4 09/28/2012 Normal [facility] HEMATOLOGY RDW 13.1 11.5 - 14.5 09/28/2012 Normal [facility] HEMATOLOGY Platelet 313 133 - 450 09/28/2012 Normal [facility] HEMATOLOGY MCH 32.1 27.0 - 31.0 09/28/[address] [facility] HEMATOLOGY MCHC 33.6 32.0 - 36.0 09/28/2012 Normal [facility] CHEMISTRY Albumin Lvl 3.7 3.5 - 5.0 [...] Ratio 1.4 0.7 - 1.6 08/10/2012 Normal [facility] CHEMISTRY Bili Indirect >0.2 0.0 - 1.0 08/10/2012 Normal [facility] HEMATOLOGY Basophils 0.4 0.0 - 1.0 08/10/2012 Normal [facility] HEMATOLOGY Eosinophils # 0.0 0.0 - 0.5 08/10/2012 Normal [facility] HEMATOLOGY Monocytes # 0.4 0.0 - 0.8 08/10/2012 Normal [facility] HEMATOLOGY Basophils # 0.0 0.0 - 0.2 08/10/2012 Normal [facility] HEMATOLOGY Lymphocytes 20.8 20.0 - 40.0 08/10/2012 Normal [facility] HEMATOLOGY Segs 70.5 45.0 - 75.0 08/10/2012 Normal [facility] HEMATOLOGY Segs-Bands # 3.2 1.5 - 8.1 08/10/2012 Normal [facility] HEMATOLOGY Eosinophils 0.1 0.0 - 4.0 08/10/2012 Normal [facility] HEMATOLOGY Lymphocytes # 1.0 1.0 - 5.5 08/10/2012 Normal [facility] HEMATOLOGY Monocytes 8.2 2.0 - 12.0 08/10/2012 Normal [facility] HEMATOLOGY MPV 9.6 7.4 - 10.4 08/10/2012 Normal [facility] HEMATOLOGY Hgb 10.3 12.0 - 16.0 08/10/2012 LOW [facility] HEMATOLOGY RBC 3.27 4.20 - 5.40 08/10/2012 [facility] HEMATOLOGY MCHC 32.6 32.0 - 36.0 08/10/2012 Normal [facility] HEMATOLOGY RDW 12.7 11.5 - 14.5 08/10/2012 Normal [facility] HEMATOLOGY Platelet 216 133 - 450 08/10/2012 Normal [facility] HEMATOLOGY Hct 31.7 36.0 - 48.0 08/10/2012 LOW [facility] HEMATOLOGY MCV 96.9 81.0 - 99.0 08/10/2012 Normal [facility] HEMATOLOGY MCH 31.6 27.0 - 31.0 08/10/2012 HI [facility] HEMATOLOGY WBC 4.6 3.7 - 10.4 08/10/2012 Normal [facility] CHEMISTRY eGFR 112 08/09/2012 NA <sup>1</sup>Result [...] should be multiplied by the estimated BMI. [facility] CHEMISTRY Albumin Lvl 3.2 3.5 - 5.0 08/09/2012 LOW [facility] CHEMISTRY Total Protein 5.5 6.4 - 8.4 08/09/2012 LOW [facility] CHEMISTRY Calcium Lvl 8.4 8.5 - 10.5 08/09/2012 LOW [facility] CHEMISTRY Bili Total 0.4 0.2 - 1.3 08/09/2012 Normal [facility] CHEMISTRY Alk Phos 70 39 - 136 08/09/2012 Normal [facility] CHEMISTRY ALT 22 0 - 65 08/09/2012 Normal [facility] CHEMISTRY AST 6 0 - 37 08/09/2012 Normal [facility] CHEMISTRY Creatinine Lvl 0.7 0.5 - 1.4 08/09/2012 Normal [facility] CHEMISTRY CO2 32 24 - 32 08/09/2012 Normal [facility] CHEMISTRY Glucose Lvl 83 70 - 99 08/09/2012 Normal <sup>3</sup>Interpretive Data: Adult ref erence range values reflect the clinical guidelines
of the [place] [employer]. [facility] CHEMISTRY BUN 2 7 - 22 08/09/2012 LOW [facility] CHEMISTRY Chloride Lvl 106 95 - 109 08/09/2012 Normal [facility] CHEMISTRY Potassium Lvl 3.8 3.5 - 5.1 08/09/2012 Normal [facility] CHEMISTRY Sodium Lvl 145 135 - 145 08/09/2012 Normal [facility] CHEMISTRY B/C Ratio 3 6 - 25 08/09/2012 LOW [facility] CHEMISTRY AGAP 10.8 10.0 - 20.0 08/09/2012 Normal [facility] CHEMISTRY A/G Ratio 1.4 0.7 - 1.6 08/09/2012 Normal [facility] CHEMISTRY Globulin 2.3 2.0 - 4.0 08/09/2012 Normal [facility] CHEMISTRY Lipase Lvl 96 73 - 393 08/09/2012 Normal [facility] CHEMISTRY Amylase Lvl 26 25 - 115 08/09/2012 Normal [facility] HEMATOLOGY MPV 9.1 7.4 - 10.4 08/09/2012 Normal [facility] HEMATOLOGY Platelet 207 133 - 450 08/09/2012 Normal [facility] HEMATOLOGY WBC 3.3 3.7 - 10.4 08/09/2012 LOW [facility] HEMATOLOGY RBC 3.06 4.20 - 5.40 08/09/2012 L[facility] HEMATOLOGY Hgb 9.6 12.0 - 16.0 08/09/2012 LOW [facility] HEMATOLOGY RDW 12.7 11.5 - 14.5 08/09/2012 Normal [facility] HEMATOLOGY MCHC 32.4 32.0 - 36.0 08/09/2012 Normal [facility] HEMATOLOGY Hct 29.6 36.0 - 48.0 08/09/2012 LOW [facility] HEMATOLOGY MCV 96.7 81.0 - 99.0 08/09/2012 Normal [facility] HEMATOLOGY MCH 31.3 27.0 - 31.0 08/09/2012 [facility] HEMATOLOGY Basophils # 0.0 0.0 - [...] HEMATOLOGY Lymphocytes 44.5 20.0 - 40.0 08/09/2012 [facility] HEMATOLOGY Monocytes 10.8 2.0 - 12.0 08/09/2012 Normal [facility] HEMATOLOGY Eosinophils 5.3 0.0 - 4.0 08/09/2012 [facility] HEMATOLOGY Segs 38.7 45.0 - 75.0 08/09/2012 [facility] CHEMISTRY U Preg Negati ve (08/08/2012 08:00:36) Negati ve 08/08/2012 Normal [facility] CHEMISTRY Bili Total 0.2 0.2 - 1.3 08/06/2012 Normal [facility] CHEMISTRY AST 14 0 - 37 08/06/2012 Normal [facility] CHEMISTRY Total Protein 7.3 6.4 - 8.4 08/06/2012 Normal [facility] CHEMISTRY CO2 28 24 - 32 08/06/2012 Normal [facility] CHEMISTRY ALT 43 0 - 65 08/06/2012 Normal [facility] CHEMISTRY Alk Phos 95 39 - 136 08/06/2012 Normal [facility] CHEMISTRY eGFR 95 08/06/2012 NA <sup>2</sup>Result [...] should be multiplied by the estimated BMI. [facility] CHEMISTRY Sodium Lvl 146 135 - 145 08/06/2012 HI [facility] CHEMISTRY Creatinine Lvl 0.8 0.5 - 1.4 08/06/2012 Normal [facility] CHEMISTRY BUN 10 7 - 22 08/06/2012 Normal [facility] CHEMISTRY Glucose Lvl 87 70 - 99 08/06/2012 Normal <sup>4</sup>Interpretive Data: Adult ref erence range values reflect the clinical guidelines
of the [place] [employer]. [facility] CHEMISTRY Potassium Lvl 3.5 3.5 - 5.1 08/06/2012 Normal [facility] CHEMISTRY Albumin Lvl 4.2 3.5 - 5.0 08/06/2012 Normal [facility] CHEMISTRY Chloride Lvl 109 95 - 109 08/06/2012 Normal [facility] CHEMISTRY Calcium Lvl 8.9 8.5 - 10.5 08/06/2012 Normal [facility] CHEMISTRY Globulin 3.1 2.0 - 4.0 08/06/2012 Normal [facility] CHEMISTRY A/G Ratio 1.4 0.7 - [...] WBC 4.0 3.7 - 10.4 08/06/2012 Normal [facility] HEMATOLOGY MPV 9.0 7.4 - 10.4 08/06/2012 Normal [facility] HEMATOLOGY Platelet 284 133 - 450 08/06/2012 Normal [facility] HEMATOLOGY RDW 13.2 11.5 - 14.5 08/06/2012 Normal [facility] HEMATOLOGY Hct 35.0 36.0 - 48.0 08/06/2012 LOW [facility] HEMATOLOGY Hgb 11.4 12.0 - 16.0 08/06/2012 LOW [facility] HEMATOLOGY RBC 3.65 4.20 - 5.40 08/06/2012 LOW [facility] HEMATOLOGY MCV 95.8 81.0 - 99.0 08/06/2012 Normal [facility] HEMATOLOGY MCHC 32.6 32.0 - 36.0 08/06/2012 Normal [facility] HEMATOLOGY MCH 31.2 27.0 - 31.0 08/06/2012 [facility] CHEMISTRY Total Protein 7.4 6.4 - 8.4 07/17/2012 Normal [facility] CHEMISTRY Globulin 3.1 2.0 - 4.0 07/17/2012 Normal [facility] CHEMISTRY A/G Ratio 1.4 0.7 - 1.6 07/17/2012 Normal [facility] CHEMISTRY Bili Total 0.2 0.2 - 1.3 07/17/2012 Normal [facility] CHEMISTRY Alk Phos 111 39 - 136 07/17/2012 Normal [facility] CHEMISTRY AST 45 0 - 37 07/17/2012 [facility] CHEMISTRY ALT 133 0 - 65 07/17/2012 [facility] CHEMISTRY eGFR 83 07/17/2012 NA <sup>1</sup>Result Comment: [...] should be multiplied by the estimated BMI. [facility] CHEMISTRY Potassium Lvl 3.9 3.5 - 5.1 07/17/2012 Normal [facility] CHEMISTRY B/C Ratio 9 6 - 25 07/17/2012 Normal [facility] CHEMISTRY Albumin Lvl 4.3 3.5 - 5.0 07/17/2012 Normal [facility] CHEMISTRY AGAP 15.9 10.0 - 20.0 07/17/2012 Normal [facility] CHEMISTRY Calcium Lvl 9.2 8.5 - 10.5 07/17/2012 Normal [facility] CHEMISTRY Chloride Lvl 105 95 - 109 07/17/2012 Normal [facility] CHEMISTRY CO2 25 24 - 32 07/17/2012 Normal [facility] CHEMISTRY Sodium Lvl 142 135 - 145 07/17/2012 Normal [facility] CHEMISTRY Creatinine Lvl 0.9 0.5 - 1.4 07/17/2012 Normal [facility] CHEMISTRY BUN 8 7 - 22 07/17/2012 Normal [facility] CHEMISTRY Glucose Lvl 85 70 - 99 07/17/2012 Normal <sup>2</sup>Interpretive Data: Adult ref erence range values reflect the clinical guidelines
of the [place] [employer]. [facility] CHEMISTRY U Cocaine Scr Negati ve *NA* (07/17/2012 15:00:00) Negati ve 07/17/2012 NA [facility] CHEMISTRY U Cannab Scr Negati ve *NA* (07/17/2012 15:00:00) Negati ve 07/17/2012 NA [facility] CHEMISTRY U Opiate Scr Negati ve *NA* (07/17/2012 15:00:00) Negati ve 07/17/2012 NA [facility] CHEMISTRY UDS Note See No te [...] 300 ng/m L
Urine alcohol 20 mg/dL [facility] CHEMISTRY U Phencyc Scr Negati ve *NA* (07/17/2012 15:00:00) Negati ve 07/17/2012 NA [facility] CHEMISTRY U Amph Scr Negati ve *NA* (07/17/2012 15:00:00) Negati ve 07/17/2012 NA [facility] CHEMISTRY U Pilar Scr Negati ve *NA* (07/17/2012 15:00:00) Negati ve 07/17/2012 NA [facility] CHEMISTRY U Benzodia Scr Positi ve *ABN* (07/17/2012 15:00:00) Negati ve 07/17/2012 ABN [facility] HEMATOLOGY MPV 9.1 7.4 - 10.4 07/17/2012 Normal [facility] HEMATOLOGY Platelet 328 133 - 450 07/17/2012 Normal [facility] HEMATOLOGY RDW 12.8 11.5 - 14.5 07/17/2012 Normal [facility] HEMATOLOGY MCHC 32.9 32.0 - 36.0 07/17/2012 Normal [facility] HEMATOLOGY MCH 31.3 27.0 - 31.0 07/17/2012 HI [facility] HEMATOLOGY WBC 4.0 3.7 - 10.4 07/17/2012 Normal [facility] HEMATOLOGY Hgb 11.7 12.0 - 16.0 07/17/2012 LOW [facility] HEMATOLOGY RBC 3.73 4.20 - 5.40 07/17/2012 LOW [facility] HEMATOLOGY MCV 95.0 81.0 - 99.0 07/17/2012 Normal [facility] HEMATOLOGY Hct 35.5 36.0 - 48.0 07/17/2012 LOW [facility] HEMATOLOGY Segs 54.9 45.0 - 75.0 07/17/2012 Normal [facility] HEMATOLOGY Eosinophils 2.8 0.0 - 4.0 07/17/2012 Normal [facility] HEMATOLOGY Monocytes 7.0 2.0 - 12.0 07/17/2012 Normal [facility] HEMATOLOGY Lymphocytes 34.7 20.0 - 40.0 07/17/2012 Normal [facility] HEMATOLOGY Lymphocytes # 1.4 1.0 - 5.5 07/17/2012 Normal [facility] HEMATOLOGY Eosinophils # 0.1 0.0 - 0.5 07/17/2012 Normal [facility] HEMATOLOGY Monocytes # 0.3 0.0 - 0.8 07/17/2012 Normal [facility] HEMATOLOGY Segs-Bands # 2.2 1.5 - 8.1 07/17/2012 Normal [facility] HEMATOLOGY Basophils 0.6 0.0 - 1.0 07/17/2012 Normal [facility] HEMATOLOGY Basophils # 0.0 0.0 - 0.2 07/17/2012 Normal [facility] CHEMISTRY U Preg Negati ve (07/16/2012 01:22:00) Negati ve 07/16/2012 Normal [facility] Microbiology Culture: Urine 07/16/2012 [facility] URINALYSIS UA Urobilinogen 0.1 - 1.0 07/16/2012 NA [facility] URINALYSIS UA Color Isela 07/16/2012 NA [facility] URINALYSIS UA Sq Epi None Seen 07/16/2012 NA [facility] URINALYSIS UA Protein Negat jose maria mg/dL (07/16/2012 00:05:00) Negati ve 07/16/2012 Normal [facility] URINALYSIS UA Ketones Negat jose maria mg/dL *NA* (07/16/2012 00:05:00) Negati ve 07/16/2012 NA [facility] URINALYSIS UA Glucose Negat jose maria mg/dL *NA* (07/16/2012 00:05:00) Negati ve 07/16/2012 NA [facility] URINALYSIS UA Spec Grav 1.003 <=1.030 07/16/2012 Normal [facility] URINALYSIS UA pH 7.0 5.0 - 8.0 07/16/2012 Normal [facility] URINALYSIS UA Turbidity Clear (07/16/2012 00:05:00) Clear 07/16/2012 Normal [facility] URINALYSIS UA Leuk Est Negat jose maria (07/16/2012 00:05:00) Negati ve 07/16/2012 Normal [facility] URINALYSIS UA Nitrite Posit jose maria *ABN* (07/16/2012 00:05:00) Negati ve 07/16/2012 ABN [facility] URINALYSIS UA Bili Negat jose maria *NA* (07/16/2012 00:05:00) Negati ve 07/16/2012 NA [facility] URINALYSIS UA RBC <1 0 - 2 07/16/2012 Normal [facility] URINALYSIS UA WBC <1 0 - 5 07/16/2012 Normal [facility] URINALYSIS UA Blood Negat jose maria (07/16/2012 00:05:00) Negati ve 07/16/2012 Normal [facility] CHEMISTRY Lipase Lvl 119 73 - 393 07/16/2012 Normal [facility] CHEMISTRY eGFR 95 07/16/2012 NA <sup>1</sup>Result [...] should be multiplied by the estimated BMI. [facility] CHEMISTRY Albumin Lvl 4.0 3.5 - 5.0 07/16/2012 Normal [facility] CHEMISTRY CO2 30 24 - 32 07/16/2012 Normal [facility] CHEMISTRY Calcium Lvl 8.9 8.5 - 10.5 07/16/2012 Normal [facility] CHEMISTRY BUN 9 7 - 22 07/16/2012 Normal [facility] CHEMISTRY Chloride Lvl 104 95 - 109 07/16/2012 Normal [facility] CHEMISTRY Creatinine Lvl 0.8 0.5 - 1.4 07/16/2012 Normal [facility] CHEMISTRY Sodium Lvl 142 135 - 145 07/16/2012 Normal [facility] CHEMISTRY Potassium Lvl 4.0 3.5 - 5.1 07/16/2012 Normal [facility] CHEMISTRY Glucose Lvl 92 70 - 99 07/16/2012 Normal <sup>2</sup>Interpretive Data: Adult ref erence range values reflect the clinical guidelines
of the [employer] [employer]. [facility] CHEMISTRY Total Protein 7.2 6.4 - 8.4 07/16/2012 Normal [facility] CHEMISTRY ALT 157 0 - 65 07/16/2012 HI [facility] CHEMISTRY Alk Phos 98 39 - 136 07/16/2012 Normal [facility] CHEMISTRY Bili Total 0.2 0.2 - 1.3 07/16/2012 Normal [facility] CHEMISTRY AST 65 0 - 37 07/16/2012 [facility] CHEMISTRY B/C Ratio 11 6 - 25 07/16/2012 Normal [facility] CHEMISTRY AGAP 12.0 10.0 - 20.0 07/16/2012 Normal [facility] CHEMISTRY Globulin 3.2 2.0 - 4.0 07/16/2012 Normal [facility] CHEMISTRY A/G Ratio 1.2 0.7 - 1.6 07/16/2012 Normal [facility] HEMATOLOGY Segs-Bands # 1.4 1.5 - 8.1 07/16/2012 LOW [facility] HEMATOLOGY Lymphocytes # 1.6 1.0 - 5.5 07/16/2012 Normal [facility] HEMATOLOGY Eosinophils 4.1 0.0 - 4.0 07/16/2012 [facility] HEMATOLOGY Basophils 0.6 0.0 - 1.0 07/16/2012 Normal [facility] HEMATOLOGY Monocytes 9.8 2.0 - 12.0 07/16/2012 Normal [facility] HEMATOLOGY Eosinophils # 0.1 0.0 - 0.5 07/16/2012 Normal [facility] HEMATOLOGY Monocytes # 0.4 0.0 - 0.8 07/16/2012 Normal [facility] HEMATOLOGY Basophils # 0.0 0.0 - 0.2 07/16/2012 Normal [facility] HEMATOLOGY Segs 39.4 45.0 - 75.0 07/16/2012 [facility] HEMATOLOGY Lymphocytes 46.1 20.0 - 40.0 07/16/2012 [facility] HEMATOLOGY Platelet 305 133 - 450 07/16/2012 Normal [facility] HEMATOLOGY RDW 12.9 11.5 - 14.5 07/16/2012 Normal [facility] HEMATOLOGY MPV 8.4 7.4 - 10.4 07/16/2012 Normal [facility] HEMATOLOGY MCV 96.2 81.0 - 99.0 07/16/2012 Normal [facility] HEMATOLOGY WBC 3.6 3.7 - 10.4 07/16/2012 [facility] HEMATOLOGY MCHC 32.6 32.0 - 36.0 07/16/2012 Normal [facility] HEMATOLOGY MCH 31.4 27.0 - 31.0 07/16/2012 [facility] HEMATOLOGY Hct 33.4 36.0 - 48.0 07/16/2012 LOW [facility] HEMATOLOGY RBC 3.48 4.20 - 5.40 07/16/2012 [facility] HEMATOLOGY Hgb 10.9 12.0 - 16.0 07/16/2012 [facility] BEDSIDE GLUCOSE TESTING Gluc POC Lif scn 68 70 - 99 07/11/2012 LOW <sup>1</sup>Interpretive Data: Upper Reportable Limit: 200 mg/dL. [facility] BEDSIDE GLUCOSE TESTING Comment1 Notify RN/ 07/11/2012 NA [facility] URINALYSIS UA Protein Negat jose maria mg/dL (07/09/2012 13:30:52) Negati ve 07/09/2012 Normal [facility] URINALYSIS UA Bili Negat jose maria *NA* (07/09/2012 13:30:52) Negati ve 07/09/2012 NA [facility] URINALYSIS UA Ketones Negat jose maria mg/dL *NA* (07/09/2012 13:30:52) Negati ve 07/09/2012 NA [facility] URINALYSIS UA Nitrite Negat jose maria (07/09/2012 13:30:52) Negati ve 07/09/2012 Normal [facility] URINALYSIS UA Blood Moder ate *ABN* (07/09/2012 13:30:52) Negati ve 07/09/2012 ABN [facility] URINALYSIS UA Glucose Negat jose maria mg/dL *NA* (07/09/2012 13:30:52) Negati ve 07/09/2012 NA [facility] URINALYSIS UA Color Isela 07/09/2012 NA [facility] URINALYSIS UA Leuk Est Trace *ABN* (07/09/2012 13:30:52) Negati ve 07/09/2012 ABN [facility] URINALYSIS UA Urobilinogen 0.1 - 1.0 07/09/2012 NA [facility] URINALYSIS UA Spec Grav 1.005 <=1.030 07/09/2012 Normal [facility] URINALYSIS UA Turbidity Clear (07/09/2012 13:30:52) Clear 07/09/2012 Normal [facility] URINALYSIS UA pH 6.0 5.0 - 8.0 07/09/2012 Normal [facility] BLOOD [facility] RESULTS Antibody Scrn Negative (07/09/2012 13:04:00) 07/09/2012 Normal [facility] BLOOD BANK RESULTS ABO/Rh O POS 07/09/2012 Unknown [facility] CHEMISTRY B/C Ratio 12 6 - 25 07/09/2012 Normal [facility] CHEMISTRY AGAP 12.5 10.0 - 20.0 07/09/2012 Normal [facility] CHEMISTRY A/G Ratio 1.3 0.7 - 1.6 07/09/2012 Normal [facility] CHEMISTRY Globulin 3.0 2.0 - 4.0 07/09/2012 Normal [facility] CHEMISTRY eGFR 73 07/09/2012 NA <sup>2</sup>Result [...] should be multiplied by the estimated BMI. [facility] CHEMISTRY Albumin Lvl 3.8 3.5 - 5.0 07/09/2012 Normal [facility] CHEMISTRY Calcium Lvl 9.5 8.5 - 10.5 07/09/2012 Normal [facility] CHEMISTRY Chloride Lvl 105 95 - 109 07/09/2012 Normal [facility] CHEMISTRY CO2 31 24 - 32 07/09/2012 Normal [facility] CHEMISTRY Sodium Lvl 143 135 - 145 07/09/2012 Normal [facility] CHEMISTRY Creatinine Lvl 1.0 0.5 - 1.4 07/09/2012 Normal [facility] CHEMISTRY Potassium Lvl 5.5 3.5 - 5.1 07/09/2012 HI [facility] CHEMISTRY BUN 12 7 - 22 07/09/2012 Normal [facility] CHEMISTRY Glucose Lvl 84 70 - 99 07/09/2012 Normal <sup>3</sup>Interpretive Data: Adult ref erence range values reflect the clinical guidelines
of the [place] [employer]. [facility] CHEMISTRY Total Protein 6.8 6.4 - 8.4 07/09/2012 Normal [facility] CHEMISTRY Alk Phos 92 39 - 136 07/09/2012 Normal [facility] CHEMISTRY Bili Total 0.2 0.2 - 1.3 07/09/2012 Normal [facility] CHEMISTRY ALT 44 0 - 65 07/09/2012 Normal [facility] CHEMISTRY AST 13 0 - 37 07/09/2012 Normal [facility] HEMATOLOGY Eosinophils # 0.2 0.0 - 0.5 07/09/2012 Normal [facility] HEMATOLOGY Basophils 0.3 0.0 - 1.0 07/09/2012 Normal [facility] HEMATOLOGY Eosinophils 4.7 0.0 - 4.0 07/09/2012 [facility] HEMATOLOGY Monocytes 10.2 2.0 - 12.0 07/09/2012 Normal [facility] HEMATOLOGY Lymphocytes 50.5 20.0 - 40.0 07/09/2012 [facility] HEMATOLOGY Basophils # 0.0 0.0 - 0.2 07/09/2012 Normal [facility] HEMATOLOGY Monocytes # 0.3 0.0 - 0.8 07/09/2012 Normal [facility] HEMATOLOGY Lymphocytes # 1.7 1.0 - 5.5 07/09/2012 Normal [facility] HEMATOLOGY Segs-Bands # 1.1 1.5 - 8.1 07/09/2012 LOW [facility] HEMATOLOGY Segs 34.3 45.0 - 75.0 07/09/2012 LOW [facility] HEMATOLOGY RBC 3.35 4.20 - 5.40 07/09/2012 LOW [facility] HEMATOLOGY RDW 12.9 11.5 - 14.5 07/09/2012 Normal [facility] HEMATOLOGY MCH 31.7 27.0 - 31.0 07/09/2012 [facility] HEMATOLOGY Platelet 264 133 - 450 07/09/2012 Normal [facility] HEMATOLOGY MCHC 32.5 32.0 - 36.0 07/09/2012 Normal [facility] HEMATOLOGY MCV 97.4 81.0 - 99.0 07/09/2012 Normal [facility] HEMATOLOGY Hct 32.7 36.0 - 48.0 07/09/2012 LOW [facility] HEMATOLOGY MPV 8.9 7.4 - 10.4 07/09/2012 Normal [facility] HEMATOLOGY WBC 3.3 3.7 - 10.4 07/09/2012 LOW [facility] HEMATOLOGY Hgb 10.6 12.0 - 16.0 07/09/2012 LOW [facility] Microbiology Culture: Urine 07/08/2012 [facility] URINALYSIS UA Color Isela 07/08/2012 NA [facility] URINALYSIS UA Sq Epi None Seen 07/08/2012 NA [facility] URINALYSIS UA Spec Grav 1.009 <=1.030 07/08/2012 Normal [facility] URINALYSIS UA Turbidity Clear (07/08/2012 01:50:00) Clear 07/08/2012 Normal [facility] URINALYSIS UA Nitrite Posit jose maria *ABN* (07/08/2012 01:50:00) Negati ve 07/08/2012 ABN [facility] URINALYSIS UA Blood Negat jose maria (07/08/2012 01:50:00) Negati ve 07/08/2012 Normal [facility] URINALYSIS UA Leuk Est Negat jose maria (07/08/2012 01:50:00) Negati ve 07/08/2012 Normal [facility] URINALYSIS UA Urobilinogen 4.0 0.1 - 1.0 07/08/2012 HI [facility] URINALYSIS UA Bili Negat jose maria *NA* (07/08/2012 01:50:00) Negati ve 07/08/2012 NA [facility] URINALYSIS UA Ketones Negat jose maria mg/dL *NA* (07/08/2012 01:50:00) Negati ve 07/08/2012 NA [facility] URINALYSIS UA Glucose Negat jose maria mg/dL *NA* (07/08/2012 01:50:00) Negati ve 07/08/2012 NA [facility] URINALYSIS UA Protein Negat jose maria mg/dL (07/08/2012 01:50:00) Negati ve 07/08/2012 Normal [facility] URINALYSIS UA pH 6.0 5.0 - 8.0 07/08/2012 Normal [facility] CHEMISTRY eGFR 83 07/07/2012 NA <sup>1</sup>Result [...] should be multiplied by the estimated BMI. [facility] CHEMISTRY Potassium Lvl 3.6 3.5 - 5.1 07/07/2012 Normal [facility] CHEMISTRY Sodium Lvl 141 135 - 145 07/07/2012 Normal [facility] CHEMISTRY Creatinine Lvl 0.9 0.5 - 1.4 07/07/2012 Normal [facility] CHEMISTRY BUN 14 7 - 22 07/07/2012 Normal [facility] CHEMISTRY Glucose Lvl 88 70 - 99 07/07/2012 Normal <sup>2</sup>Interpretive Data: Adult ref erence range values reflect the clinical guidelines
of the [place] [employer]. [facility] CHEMISTRY ALT 67 0 - 65 07/07/2012 [facility] CHEMISTRY Globulin 3.5 2.0 - 4.0 07/07/2012 Normal [facility] CHEMISTRY A/G Ratio 1.2 0.7 - 1.6 07/07/2012 Normal [facility] CHEMISTRY Calcium Lvl 8.6 8.5 - 10.5 07/07/2012 [facility] CHEMISTRY B/C Ratio 16 6 - 25 07/07/2012 Normal [facility] CHEMISTRY AGAP 12.6 10.0 - 20.0 07/07/2012 Normal [facility] CHEMISTRY Albumin Lvl 4.1 3.5 - 5.0 07/07/2012 Normal [facility] CHEMISTRY Total Protein 7.6 6.4 - 8.4 07/07/2012 Normal [facility] CHEMISTRY Alk Phos 100 39 - 136 07/07/2012 Normal [facility] CHEMISTRY AST 31 0 - 37 07/07/2012 Normal [facility] CHEMISTRY Bili Total 0.1 0.2 - 1.3 07/07/2012 LOW [facility] CHEMISTRY CO2 28 24 - 32 07/07/2012 Normal [facility] CHEMISTRY Chloride Lvl 104 95 - 109 07/07/2012 Normal [facility] HEMATOLOGY Platelet 238 133 - 450 07/07/2012 Normal [facility] HEMATOLOGY MPV 9.5 7.4 - 10.4 07/07/2012 Normal [facility] HEMATOLOGY Hgb 11.0 12.0 - 16.0 07/07/2012 LOW [facility] HEMATOLOGY MCV 95.8 81.0 - 99.0 07/07/2012 Normal [facility] HEMATOLOGY MCH 31.6 27.0 - 31.0 07/07/2012 HI [facility] HEMATOLOGY MCHC 33.0 32.0 - 36.0 07/07/2012 Normal [facility] HEMATOLOGY WBC 3.3 3.7 - 10.4 07/07/2012 LOW [facility] HEMATOLOGY RBC 3.47 4.20 - 5.40 07/07/2012 LOW [facility] HEMATOLOGY RDW 13.1 11.5 - 14.5 07/07/2012 Normal [facility] HEMATOLOGY Hct 33.2 36.0 - 48.0 07/07/2012 LOW [facility] HEMATOLOGY Segs 39.4 45.0 - 75.0 07/07/2012 LOW [facility] HEMATOLOGY Eosinophils # 0.1 0.0 - 0.5 07/07/2012 [facility] HEMATOLOGY Basophils # 0.0 0.0 - 0.2 07/07/2012 Normal [facility] HEMATOLOGY Monocytes 12.7 2.0 - 12.0 07/07/2012 [facility] HEMATOLOGY Lymphocytes 44.6 20.0 - 40.0 07/07/2012 [facility] HEMATOLOGY Eosinophils 2.7 0.0 - 4.0 07/07/2012 Normal [facility] HEMATOLOGY Basophils 0.6 0.0 - 1.0 07/07/2012 Normal [facility] HEMATOLOGY Segs-Bands # 1.3 1.5 - 8.1 07/07/2012 LOW [facility] HEMATOLOGY Lymphocytes # 1.5 1.0 - 5.5 07/07/2012 Normal [facility] HEMATOLOGY Monocytes # 0.4 0.0 - 0.8 07/07/2012 Normal [facility] CHEMISTRY U Preg Negati ve (07/06/2012 23:36:00) Negati ve 07/07/2012 Normal [facility] URINALYSIS UA Sq Epi None Seen 07/07/2012 NA [facility] URINALYSIS UA RBC <1 0 - 2 07/07/2012 Normal [facility] URINALYSIS UA Urobilinogen 0.1 - 1.0 07/07/2012 NA [facility] URINALYSIS UA WBC <1 0 - 5 07/07/2012 Normal [facility] URINALYSIS UA Ketones Negat jose maria [...] UA Spec Grav 1.006 <=1.030 07/07/2012 Normal [facility] Microbiology Culture: Urine 07/07/2012 [facility] URINALYSIS UA Urobilinogen 0.1 - 1.0 05/31/2012 NA [facility] URINALYSIS UA Color Yello w *NA* (05/31/2012 08:30:00) Yellow 05/31/2012 NA [facility] URINALYSIS UA Turbidity Clear (05/31/2012 08:30:00) Clear 05/31/2012 Normal [facility] URINALYSIS UA Spec Grav 1.016 <=1.030 05/31/2012 Normal [facility] URINALYSIS UA Protein Negat jose maria mg/dL (05/31/2012 08:30:00) Negati ve 05/31/2012 Normal [facility] URINALYSIS UA Glucose Negat jose maria mg/dL *NA* (05/31/2012 08:30:00) Negati ve 05/31/2012 NA [facility] URINALYSIS UA pH 5.0 5.0 - 8.0 05/31/2012 Normal [facility] URINALYSIS UA WBC 2 0 - 5 05/31/2012 Normal [facility] URINALYSIS UA RBC <1 0 - 2 05/31/2012 Normal [facility] URINALYSIS UA Mucus Few / LPF *NA* (05/31/2012 08:30:00) None S een 05/31/2012 [facility] URINALYSIS UA Bili Negat jose maria *NA* (05/31/2012 08:30:00) Negati ve 05/31/2012 NA [facility] URINALYSIS UA Ketones Negat jose maria mg/dL *NA* (05/31/2012 08:30:00) Negati ve 05/31/2012 NA [facility] URINALYSIS UA Blood Negat jose maria (05/31/2012 08:30:00) Negati ve 05/31/2012 Normal [facility] URINALYSIS UA Nitrite Negat jose maria (05/31/2012 08:30:00) Negati ve 05/31/2012 Normal [facility] URINALYSIS UA Leuk Est Small *ABN* (05/31/2012 08:30:00) Negati ve 05/31/2012 ABN [facility] URINALYSIS UA Sq Epi Occas ional /LPF *NA* (05/31/2012 08:30:00) Few 05/31/2012 NA [facility] CHEMISTRY CK MB <0.5 0.5 - 3.6 05/31/2012 Normal [facility] CHEMISTRY Troponin-I <0.02 0.00 - 0.40 05/31/2012 Normal [facility] CHEMISTRY AST 17 0 - 37 05/31/2012 Normal [facility] CHEMISTRY Globulin 2.9 2.0 - 4.0 05/31/2012 Normal [facility] CHEMISTRY Bili Total 0.2 0.2 - 1.3 05/31/2012 Normal [facility] CHEMISTRY A/G Ratio 1.5 0.7 - 1.6 05/31/2012 Normal [facility] CHEMISTRY Alk Phos 86 39 - 136 05/31/2012 Normal [facility] CHEMISTRY ALT 61 0 - 65 05/31/2012 Normal [facility] CHEMISTRY Total Protein 7.2 6.4 - 8.4 05/31/2012 Normal [facility] CHEMISTRY eGFR 83 05/31/2012 NA <sup>1</sup>Result [...] should be multiplied by the estimated BMI. [facility] CHEMISTRY B/C Ratio 14 6 - 25 05/31/2012 Normal [facility] CHEMISTRY Albumin Lvl 4.3 3.5 - 5.0 05/31/2012 Normal [facility] CHEMISTRY AGAP 11.5 10.0 - 20.0 05/31/2012 Normal [facility] CHEMISTRY Calcium Lvl 9.0 8.5 - 10.5 05/31/2012 Normal [facility] CHEMISTRY CO2 28 24 - 32 05/31/2012 Normal [facility] CHEMISTRY Chloride Lvl 105 95 - 109 05/31/2012 Normal [facility] CHEMISTRY Sodium Lvl 141 135 - 145 05/31/2012 Normal [facility] CHEMISTRY Creatinine Lvl 0.9 0.5 - 1.4 05/31/2012 Normal [facility] CHEMISTRY Potassium Lvl 3.5 3.5 - 5.1 05/31/2012 Normal [facility] CHEMISTRY Glucose Lvl 130 70 - 99 05/31/2012 [facility] <sup>2</sup>Interpretive Data: Adult ref erence range values reflect the clinical guidelines
of the [place] [employer]. [facility] CHEMISTRY BUN 13 7 - 22 05/31/2012 Normal [facility] CHEMISTRY Total CK 74 12 - 191 05/31/2012 Normal [facility] CHEMISTRY CK MB Index <0.7 0.0 - 2.5 05/31/2012 Normal [facility] HEMATOLOGY INR 0.93 0.85 - 1.17 05/31/2012 Normal <sup>3</sup>Interpretive Data: RECOMMEND ED RANGES FOR PROTIME INR:
2.0-3.0 for most medical and surgical thromboembolic states.
2.5-3.5 for artificial heart valves and recurrent embolism.

INR SHOULD BE USED ONLY FOR PATIENTS ON STABLE ANTICOAGULANT THERAPY. [facility] HEMATOLOGY PT 12.7 12.0 - 14.7 05/31/2012 Normal [facility] HEMATOLOGY RDW 12.7 11.5 - 14.5 05/31/2012 Normal [facility] HEMATOLOGY MCH 31.9 27.0 - 31.0 05/31/2012 HI [facility] HEMATOLOGY MCHC 33.0 32.0 - 36.0 05/31/2012 Normal [facility] HEMATOLOGY RBC 3.83 4.20 - 5.40 05/31/2012 LOW [facility] HEMATOLOGY Hgb 12.2 12.0 - 16.0 05/31/2012 Normal [facility] HEMATOLOGY Hct 37.0 36.0 - 48.0 05/31/2012 Normal [facility] HEMATOLOGY MCV 96.6 81.0 - 99.0 05/31/2012 Normal [facility] HEMATOLOGY WBC 5.7 3.7 - 10.4 05/31/2012 Normal [facility] HEMATOLOGY Platelet 272 133 - 450 05/31/2012 Normal [facility] HEMATOLOGY MPV 9.6 7.4 - 10.4 05/31/2012 Normal [facility] HEMATOLOGY Basophils 0.5 0.0 - 1.0 05/31/2012 Normal [facility] HEMATOLOGY Segs-Bands # 3.3 1.5 - 8.1 05/31/2012 Normal [facility] HEMATOLOGY Segs 58.7 45.0 - 75.0 05/31/2012 Normal [facility] HEMATOLOGY Lymphocytes # 1.9 1.0 - 5.5 05/31/2012 Normal [facility] HEMATOLOGY Lymphocytes 33.6 20.0 - 40.0 05/31/2012 Normal [facility] HEMATOLOGY Monocytes # 0.3 0.0 - 0.8 05/31/2012 Normal [facility] HEMATOLOGY Monocytes 5.5 2.0 - 12.0 05/31/2012 Normal [facility] HEMATOLOGY Eosinophils 1.7 0.0 - 4.0 05/31/2012 Normal [facility] HEMATOLOGY Basophils # 0.0 0.0 - 0.2 05/31/2012 Normal [facility] HEMATOLOGY Eosinophils # 0.1 0.0 - 0.5 05/31/2012 Normal [facility] CHEMISTRY Bili Total 0.2 0.2 - 1.3 04/08/2012 Normal [facility] CHEMISTRY AST 17 0 - 37 04/08/2012 Normal [facility] CHEMISTRY Alk Phos 77 39 - 136 04/08/2012 Normal [facility] CHEMISTRY Total Protein 6.9 6.4 - 8.4 04/08/2012 Normal [facility] CHEMISTRY ALT 49 0 - 65 04/08/2012 Normal [facility] CHEMISTRY eGFR 95 04/08/2012 NA <sup>1</sup>Result [...] should be multiplied by the estimated BMI. [facility] CHEMISTRY Calcium Lvl 8.6 8.5 - 10.5 04/08/2012 Normal [facility] CHEMISTRY Albumin Lvl 3.9 3.5 - 5.0 04/08/2012 Normal [facility] CHEMISTRY CO2 28 24 - 32 04/08/2012 Normal [facility] CHEMISTRY Chloride Lvl 106 95 - 109 04/08/2012 Normal [facility] CHEMISTRY Glucose Lvl 85 70 - 99 04/08/2012 Normal <sup>2</sup>Interpretive Data: Adult ref erence range values reflect the clinical guidelines
of the [place] [employer]. [facility] CHEMISTRY Creatinine Lvl 0.8 0.5 - 1.4 04/08/2012 Normal [facility] CHEMISTRY Potassium Lvl 4.2 3.5 - 5.1 04/08/2012 Normal [facility] CHEMISTRY Sodium Lvl 145 135 - 145 04/08/2012 Normal [facility] CHEMISTRY BUN 15 7 - 22 04/08/2012 Normal [facility] CHEMISTRY A/G Ratio 1.3 0.7 - 1.6 04/08/2012 Normal [facility] CHEMISTRY Globulin 3.0 2.0 - 4.0 04/08/2012 Normal [facility] CHEMISTRY AGAP 15.2 10.0 - 20.0 04/08/2012 Normal [facility] CHEMISTRY B/C Ratio 19 6 - 25 04/08/2012 Normal [facility] HEMATOLOGY Basophils # 0.0 0.0 - 0.2 04/08/2012 Normal [facility] HEMATOLOGY Eosinophils # 0.1 0.0 - 0.5 04/08/2012 Normal [facility] HEMATOLOGY Monocytes # 0.4 0.0 - 0.8 04/08/2012 Normal [facility] HEMATOLOGY Segs-Bands # 2.4 1.5 - 8.1 04/08/2012 Normal [facility] HEMATOLOGY Basophils 0.6 0.0 - 1.0 04/08/2012 Normal [facility] HEMATOLOGY Eosinophils 3.1 0.0 - 4.0 04/08/2012 Normal [facility] HEMATOLOGY Lymphocytes # 1.6 1.0 - 5.5 04/08/2012 Normal [facility] HEMATOLOGY Monocytes 8.6 2.0 - 12.0 04/08/2012 Normal [facility] HEMATOLOGY Segs 52.7 45.0 - 75.0 04/08/2012 Normal [facility] HEMATOLOGY Lymphocytes 35.0 20.0 - 40.0 04/08/2012 Normal [facility] HEMATOLOGY Platelet 257 133 - 450 04/08/2012 Normal [facility] HEMATOLOGY RDW 12.9 11.5 - 14.5 04/08/2012 Normal [facility] HEMATOLOGY MPV 9.2 7.4 - 10.4 04/08/2012 Normal [facility] HEMATOLOGY Hgb 11.9 12.0 - 16.0 04/08/2012 LOW [facility] HEMATOLOGY RBC 3.64 4.20 - 5.40 04/08/2012 LOW [facility] HEMATOLOGY Hct 35.3 36.0 - 48.0 04/08/2012 LOW [facility] HEMATOLOGY MCV 97.2 81.0 - 99.0 04/08/2012 Normal [facility] HEMATOLOGY MCH 32.6 27.0 - 31.0 04/08/2012 HI [facility] HEMATOLOGY MCHC 33.6 32.0 - 36.0 04/08/2012 Normal [facility] HEMATOLOGY WBC 4.5 3.7 - 10.4 04/08/2012 Normal [facility] Microbiology Culture: Urine 01/25/2012 [facility] CHEMISTRY UDS Note See No te [...] 300 ng/m L
Urine alcohol 20 mg/dL [facility] CHEMISTRY U Phencyc Scr Negati ve *NA* (01/24/2012 22:46:00) Negati ve 01/25/2012 [facility] CHEMISTRY U Opiate Scr Negati ve *NA* (01/24/2012 22:46:00) Negati ve 01/25/2012 [facility] CHEMISTRY U Cannab Scr Negati ve *NA* (01/24/2012 22:46:00) Negati ve 01/25/2012 [facility] CHEMISTRY U Pilar Scr Negati ve *NA* (01/24/2012 22:46:00) Negati ve 01/25/2012 [facility] CHEMISTRY U Amph Scr Negati ve *NA* (01/24/2012 22:46:00) Negati ve 01/25/2012 [facility] CHEMISTRY U Cocaine Scr Negati ve *NA* (01/24/2012 22:46:00) Negati ve 01/25/2012 [facility] CHEMISTRY U Benzodia Scr Positi ve *ABN* (01/24/2012 22:46:00) Negati ve 01/25/2012 ABN [facility] URINALYSIS UA Urobilinogen 0.1 - 1.0 01/25/2012 [facility] URINALYSIS UA Color Colorless 01/25/2012 NA [facility] URINALYSIS UA Blood Negat jose maria (01/24/2012 22:46:00) Negati ve 01/25/2012 Normal [facility] URINALYSIS UA Bili Negat jose maria *NA* (01/24/2012 22:46:00) Negati ve 01/25/2012 [facility] URINALYSIS UA Ketones Negat jose maria [...] mg/dL (01/24/2012 22:46:00) Negati ve 01/25/2012 Normal [facility] URINALYSIS UA pH 6.0 5.0 - 8.0 01/25/2012 Normal [facility] URINALYSIS UA Turbidity Clear (01/24/2012 22:46:00) Clear 01/25/2012 Normal [facility] URINALYSIS UA Spec Grav 1.002 <=1.030 01/25/2012 Normal [facility] BEDSIDE GLUCOSE TESTING Gluc POC Lif scn 116 70 - 99 01/25/2012 [place] <sup>1</sup>Interpretive Data: Upper Reportable Limit: 200 mg/dL. [facility] CHEMISTRY Globulin 3.1 2.0 - 4.0 01/25/2012 Normal [facility] CHEMISTRY A/G Ratio 1.4 0.7 - 1.6 01/25/2012 Normal [facility] CHEMISTRY B/C Ratio 14 6 - 25 01/25/2012 Normal [facility] CHEMISTRY AGAP 13.5 10.0 - 20.0 01/25/2012 Normal [facility] CHEMISTRY ALT 76 0 - 65 01/25/2012 [facility] CHEMISTRY Total Protein 7.3 6.4 - 8.4 01/25/2012 [facility] CHEMISTRY AST 45 0 - 37 01/25/2012 [facility] CHEMISTRY Alk Phos 95 39 - 136 01/25/2012 Normal [facility] CHEMISTRY Bili Total 0.2 0.2 - 1.3 01/25/2012 Normal [facility] CHEMISTRY Glucose Lvl 79 70 - 99 01/25/2012 Normal <sup>3</sup>Interpretive Data: Adult ref erence range values reflect the clinical guidelines
of the [place] [employer]. [facility] CHEMISTRY BUN 11 7 - 22 01/25/2012 Normal [facility] CHEMISTRY Creatinine Lvl 0.8 0.5 - 1.4 01/25/2012 Normal [facility] CHEMISTRY Chloride Lvl 108 95 - 109 01/25/2012 Normal [facility] CHEMISTRY CO2 26 24 - 32 01/25/2012 Normal [facility] CHEMISTRY Sodium Lvl 144 135 - 145 01/25/2012 Normal [facility] CHEMISTRY Potassium Lvl 3.5 3.5 - 5.1 01/25/2012 Normal [facility] CHEMISTRY Calcium Lvl 9.1 8.5 - 10.5 01/25/2012 Normal [facility] CHEMISTRY Albumin Lvl 4.2 3.5 - 5.0 01/25/2012 Normal [facility] HEMATOLOGY Basophils 0.4 0.0 - 1.0 01/25/2012 Normal [facility] HEMATOLOGY Eosinophils 4.1 0.0 - 4.0 01/25/2012 [facility] HEMATOLOGY Lymphocytes # 2.2 1.0 - 5.5 01/25/2012 Normal [facility] HEMATOLOGY Segs-Bands # 1.4 1.5 - 8.1 01/25/2012 LOW [facility] HEMATOLOGY Monocytes 8.5 2.0 - 12.0 01/25/2012 Normal [facility] HEMATOLOGY Basophils # 0.0 0.0 - 0.2 01/25/2012 Normal [facility] HEMATOLOGY Monocytes # 0.4 0.0 - 0.8 01/25/2012 Normal [facility] HEMATOLOGY Eosinophils # 0.2 0.0 - 0.5 01/25/2012 Normal [facility] HEMATOLOGY Segs 34.7 45.0 - 75.0 01/25/2012 LOW [facility] HEMATOLOGY Lymphocytes 52.3 20.0 - 40.0 01/25/2012 [facility] HEMATOLOGY RBC 3.72 4.20 - 5.40 01/25/2012 LOW [facility] HEMATOLOGY MCV 95.6 81.0 - 99.0 01/25/2012 Normal [facility] HEMATOLOGY Hct 35.6 36.0 - 48.0 01/25/2012 [facility] HEMATOLOGY Hgb 11.8 12.0 - 16.0 01/25/2012 LOW [facility] HEMATOLOGY MCH 31.7 27.0 - 31.0 01/25/2012 [facility] HEMATOLOGY MCHC 33.2 32.0 - 36.0 01/25/2012 Normal [facility] HEMATOLOGY RDW 14.1 11.5 - 14.5 01/25/2012 Normal [facility] HEMATOLOGY WBC 4.2 3.7 - 10.4 01/25/2012 Normal [facility] HEMATOLOGY Platelet 246 133 - 450 01/25/2012 Normal [facility] HEMATOLOGY MPV 9.9 7.4 - 10.4 01/25/2012 Normal [facility] BEDSIDE GLUCOSE TESTING Comment1 Notify RN/ 01/25/2012 NA [facility] BEDSIDE GLUCOSE TESTING Gluc POC Lif scn 91 70 - 99 01/25/2012 Normal <sup>2</sup>Interpretive Data: Upper Reportable Limit: 200 mg/dL. [facility] BEDSIDE GLUCOSE TESTING Gluc POC Lif scn 65 70 - 99 01/02/2012 LOW <sup>1</sup>Interpretive Data: Upper Reportable Limit: 200 mg/dL. [facility] BEDSIDE GLUCOSE TESTING Comment1 Notify CHIN/ 01/02/2012 NA [facility] CHEMISTRY AGAP 11.5 10.0 - 20.0 01/02/2012 Normal [facility] CHEMISTRY BUN 4 7 - 22 01/02/2012 LOW [facility] CHEMISTRY Creatinine Lvl 0.6 0.5 - 1.4 01/02/2012 Normal [facility] CHEMISTRY Calcium Lvl 8.3 8.5 - 10.5 01/02/2012 LOW [facility] CHEMISTRY CO2 26 24 - 32 01/02/2012 Normal [facility] CHEMISTRY Glucose Lvl 70 70 - 99 01/02/2012 Normal <sup>2</sup>Interpretive Data: Adult ref erence range values reflect the clinical guidelines
of the [employer] [employer]. [facility] CHEMISTRY Sodium Lvl 144 135 - 145 01/02/2012 Normal [facility] CHEMISTRY Potassium Lvl 3.5 3.5 - 5.1 01/02/2012 Normal [facility] CHEMISTRY Chloride Lvl 110 95 - 109 01/02/2012 [facility] HEMATOLOGY Basophils # 0.0 0.0 - 0.2 01/02/2012 Normal [facility] HEMATOLOGY Monocytes # 0.2 0.0 - 0.8 01/02/2012 Normal [facility] HEMATOLOGY Eosinophils # 0.1 0.0 - 0.5 01/02/2012 Normal [facility] HEMATOLOGY Lymphocytes # 1.6 1.0 - 5.5 01/02/2012 Normal [facility] HEMATOLOGY Basophils 0.8 0.0 - 1.0 01/02/2012 Normal [facility] HEMATOLOGY Segs-Bands # 0.6 1.5 - 8.1 01/02/2012 LOW [facility] [facility] HEMATOLOGY Eosinophils 4.9 0.0 - 4.0 01/02/2012 [facility] HEMATOLOGY Lymphocytes 63.1 20.0 - 40.0 01/02/2012 [facility] HEMATOLOGY Monocytes 7.1 2.0 - 12.0 01/02/2012 Normal [facility] HEMATOLOGY Plt Morph Ashlee l (01/02/2012 05:05:00) 01/02/2012 Normal [facility] HEMATOLOGY Segs 24.1 45.0 - 75.0 01/02/2012 LOW [facility] RBC Morph Ashlee l (01/02/2012 05:05:00) 01/02/2012 Normal [facility] HEMATOLOGY INR 1.08 0.85 - 1.17 01/02/2012 Normal <sup>3</sup>Interpretive Data: RECOMMEND ED RANGES FOR PROTIME INR:
2.0-3.0 for most medical and surgical thromboembolic states.
2.5-3.5 for artificial heart valves and recurrent embolism.

INR SHOULD BE USED ONLY FOR PATIENTS ON STABLE ANTICOAGULANT THERAPY. [facility] HEMATOLOGY PT 14.2 12.0 - 14.7 01/02/2012 Normal [facility] PTT 32.6 22.9 - 35.8 01/02/2012 Normal <sup>4</sup>Interpretive Data: Heparin T herapeutic Range: 57 - 92 Seconds [facility] Hct 28.1 36.0 - 48.0 01/02/2012 LOW [facility] Hgb 9.5 12.0 - 16.0 01/02/2012 LOW [facility] HEMATOLOGY MCH 31.8 27.0 - 31.0 01/02/2012 [facility] HEMATOLOGY MCV 94.3 81.0 - 99.0 01/02/2012 Normal [facility] HEMATOLOGY MCHC 33.8 32.0 - 36.0 01/02/2012 Normal [facility] HEMATOLOGY Platelet 149 133 - 450 01/02/2012 Normal [facility] RDW 16.1 11.5 - 14.5 01/02/2012 [facility] HEMATOLOGY MPV 10.4 7.4 - 10.4 01/02/2012 Normal [facility] RBC 2.99 4.20 - 5.40 01/02/2012 [facility] HEMATOLOGY WBC 2.6 3.7 - 10.4 01/02/2012 [facility] HEMATOLOGY Hgb 10.7 12.0 - 16.0 01/02/2012 [facility] HEMATOLOGY Hgb 10.4 12.0 - 16.0 01/01/2012 [facility] BLOOD BANK RESULTS ABO/Rh O POS 01/01/2012 Unknown [facility] BLOOD BANK RESULTS Antibody Scrn Negative (01/01/2012 08:51:00) 01/01/2012 [facility] HEMATOLOGY MPV 10.1 7.4 - 10.4 12/31/2011 [facility] HEMATOLOGY Platelet 209 133 - 450 12/31/2011 [facility] HEMATOLOGY Hct 32.1 36.0 - 48.0 12/31/2011 [facility] HEMATOLOGY RDW 16.5 11.5 - 14.5 12/31/2011 [facility] HEMATOLOGY MCV 94.1 81.0 - 99.0 12/31/2011 [facility] HEMATOLOGY MCHC 33.8 32.0 - 36.0 12/31/2011 [facility] HEMATOLOGY MCH 31.8 27.0 - 31.0 12/31/2011 [facility] HEMATOLOGY WBC 3.3 3.7 - 10.4 12/31/2011 [facility] HEMATOLOGY RBC 3.42 4.20 - 5.40 12/31/2011 [facility] HEMATOLOGY Eosinophils # 0.2 0.0 - 0.5 12/31/2011 [facility] HEMATOLOGY Monocytes # 0.2 0.0 - 0.8 12/31/2011 [facility] HEMATOLOGY Basophils # 0.0 0.0 - 0.2 12/31/2011 [facility] HEMATOLOGY Segs-Bands # 1.2 1.5 - 8.1 12/31/2011 [facility] HEMATOLOGY Eosinophils 4.5 0.0 - 4.0 12/31/2011 [facility] HEMATOLOGY Basophils 0.8 0.0 - 1.0 12/31/2011 [facility] HEMATOLOGY Segs 36.3 45.0 - 75.0 12/31/2011 [facility] HEMATOLOGY Lymphocytes 52.7 20.0 - 40.0 12/31/2011 [facility] HEMATOLOGY Monocytes 5.7 2.0 - 12.0 12/31/2011 [facility] HEMATOLOGY Lymphocytes # 1.7 1.0 - 5.5 12/31/2011 [facility] STOOL TESTS Occult Bld Stl Posi tive *ABN* (12/31/2011 00:13:00) Negati ve 12/31/2011 ABN [facility] CHEMISTRY AST 10 0 - 37 12/31/2011 Normal [facility] CHEMISTRY Albumin Lvl 4.5 3.5 - 5.0 12/31/2011 Normal [facility] CHEMISTRY ALT 46 0 - 65 12/31/2011 Normal [facility] CHEMISTRY Bili Total 0.2 0.2 - 1.3 12/31/2011 Normal [facility] CHEMISTRY CO2 23 24 - 32 12/31/2011 LOW [facility] CHEMISTRY Potassium Lvl 3.8 3.5 - 5.1 12/31/2011 Normal [facility] CHEMISTRY Chloride Lvl 107 95 - 109 12/31/2011 Normal [facility] CHEMISTRY Total Protein 7.9 6.4 - 8.4 12/31/2011 Normal [facility] CHEMISTRY Alk Phos 94 39 - 136 12/31/2011 Normal [facility] CHEMISTRY Glucose Lvl 91 70 - 99 12/31/2011 Normal <sup>1</sup>Interpretive Data: Adult ref erence range values reflect the clinical guidelines
of the [place] [employer]. [facility] CHEMISTRY Calcium Lvl 9.3 8.5 - 10.5 12/31/2011 Normal [facility] CHEMISTRY BUN 14 7 - 22 12/31/2011 Normal [facility] CHEMISTRY Sodium Lvl 140 135 - 145 12/31/2011 Normal [facility] CHEMISTRY Creatinine Lvl 0.8 0.5 - 1.4 12/31/2011 Normal [facility] CHEMISTRY AGAP 13.8 10.0 - 20.0 12/31/2011 Normal [facility] CHEMISTRY B/C Ratio 18 6 - 25 12/31/2011 Normal [facility] CHEMISTRY A/G Ratio 1.3 0.7 - 1.6 12/31/2011 Normal [facility] CHEMISTRY Globulin 3.4 2.0 - 4.0 12/31/2011 Normal [facility] CHEMISTRY Lipase Lvl 157 73 - 393 12/31/2011 Normal [facility] HEMATOLOGY RDW 16.3 11.5 - 14.5 12/31/2011 HI [facility] HEMATOLOGY Platelet 263 133 - 450 12/31/2011 Normal [facility] HEMATOLOGY MPV 9.9 7.4 - 10.4 12/31/2011 Normal [facility] HEMATOLOGY Hct 38.6 36.0 - 48.0 [...] ional /LPF *NA* (12/30/2011 23:17:00) Few 12/31/2011 [facility] URINALYSIS UA Hyal Cast 1 [...] mg/dL *NA* (12/30/2011 23:17:00) Negati ve 12/31/2011 [facility] URINALYSIS UA Bili Negat jose maria *NA* (12/30/2011 23:17:00) Negati ve 12/31/2011 NA [facility] URINALYSIS UA Turbidity Clear (12/30/2011 23:17:00) Clear 12/31/2011 Normal [facility] URINALYSIS UA Spec Grav 1.019 <=1.030 12/31/2011 Normal [facility] URINALYSIS UA Urobilinogen 0.1 - 1.0 10/16/2011 [facility] URINALYSIS UA Color Ltyellow 10/16/2011 [facility] URINALYSIS UA Trans Epi 1 <=0 10/16/2011 [facility] URINALYSIS UA WBC 6 0 - 5 10/16/2011 [facility] URINALYSIS UA RBC 3 0 - 2 10/16/2011 [facility] URINALYSIS UA Mucus Few / LPF *NA* (10/16/2011 01:36:00) None S een 10/16/2011 [facility] URINALYSIS UA Leuk Est Moder ate *ABN* (10/16/2011 01:36:00) Negati ve 10/16/2011 ABN [facility] URINALYSIS UA Sq Epi Occas ional /LPF *NA* (10/16/2011 01:36:00) Few 10/16/2011 NA [facility] URINALYSIS UA Ketones Negat jose maria mg/dL *NA* (10/16/2011 01:36:00) Negati ve 10/16/2011 NA [facility] URINALYSIS UA Bili Negat jose maria *NA* (10/16/2011 01:36:00) Negati ve 10/16/2011 NA [facility] URINALYSIS UA Blood Negat jose maria (10/16/2011 01:36:00) Negati ve 10/16/2011 Normal [facility] URINALYSIS UA Glucose Negat jose maria mg/dL *NA* (10/16/2011 01:36:00) Negati ve 10/16/2011 NA [facility] URINALYSIS UA Protein Negat jose maria mg/dL (10/16/2011 01:36:00) Negati ve 10/16/2011 Normal [facility] URINALYSIS UA Nitrite Negat jose maria (10/16/2011 01:36:00) Negati ve 10/16/2011 Normal [facility] URINALYSIS UA Turbidity Sligh t *ABN* (10/16/2011 01:36:00) Clear 10/16/2011 ABN [facility] URINALYSIS UA Spec Grav 1.019 <=1.030 10/16/2011 Normal [facility] URINALYSIS UA pH 6.0 5.0 - 8.0 10/16/2011 Normal [facility] CHEMISTRY AGAP 14.7 10.0 - 20.0 10/16/2011 Normal [facility] CHEMISTRY Creatinine Lvl 0.7 0.5 - 1.4 10/16/2011 Normal [facility] CHEMISTRY Sodium Lvl 143 135 - 145 10/16/2011 Normal [facility] CHEMISTRY BUN 14 7 - 22 10/16/2011 Normal [facility] CHEMISTRY Glucose Lvl 91 70 - 99 10/16/2011 Normal <sup>1</sup>Interpretive Data: Adult ref erence range values reflect the clinical guidelines of the [place] [employer]. [facility] CHEMISTRY CO2 23 24 - 32 10/16/2011 LOW [facility] CHEMISTRY Calcium Lvl 8.9 8.5 - 10.5 10/16/2011 Normal [facility] CHEMISTRY Potassium Lvl 3.7 3.5 - 5.1 10/16/2011 Normal [facility] CHEMISTRY Chloride Lvl 109 95 - 109 10/16/2011 Normal [facility] HEMATOLOGY Hct 40.3 36.0 - 48.0 10/16/2011 Normal [facility] HEMATOLOGY WBC 4.6 3.7 - 10.4 10/16/2011 Normal [facility] HEMATOLOGY RDW 16.2 11.5 - 14.5 10/16/2011 [facility] HEMATOLOGY MPV 10.2 7.4 - 10.4 10/16/2011 Normal [facility] HEMATOLOGY MCH 30.8 27.0 - 31.0 10/16/2011 Normal [facility] HEMATOLOGY MCHC 33.4 32.0 - 36.0 10/16/2011 Normal [facility] HEMATOLOGY Platelet 243 133 - 450 10/16/2011 Normal [facility] HEMATOLOGY RBC 4.37 4.20 - 5.40 10/16/2011 Normal [facility] HEMATOLOGY Hgb 13.4 12.0 - 16.0 10/16/2011 Normal [facility] HEMATOLOGY MCV 92.2 81.0 - 99.0 10/16/2011 Normal [facility] HEMATOLOGY Lymphocytes # 1.9 1.0 - 5.5 10/16/2011 Normal [facility] HEMATOLOGY Eosinophils # 0.1 0.0 - 0.5 10/16/2011 Normal [facility] HEMATOLOGY Segs-Bands # 2.2 1.5 - 8.1 10/16/2011 Normal [facility] HEMATOLOGY Monocytes # 0.4 0.0 - 0.8 10/16/2011 Normal [facility] HEMATOLOGY Segs 47.8 45.0 - 75.0 10/16/2011 Normal [facility] HEMATOLOGY Monocytes 9.0 2.0 - 12.0 10/16/2011 Normal [facility] HEMATOLOGY Lymphocytes 40.1 20.0 - 40.0 10/16/2011 [facility] HEMATOLOGY Eosinophils 2.8 0.0 - 4.0 10/16/2011 Normal [facility] HEMATOLOGY Basophils 0.3 0.0 - 1.0 10/16/2011 Normal [facility] HEMATOLOGY Basophils # 0.0 0.0 - 0.2 10/16/2011 Normal [facility] CHEMISTRY Glucose Lvl 70 70 - 99 10/10/2011 Normal <sup>3</sup>Interpretive Data: Adult ref erence range values reflect the clinical guidelines of the [place] [employer]. [facility] CHEMISTRY Creatinine Lvl 0.9 0.5 - 1.4 10/10/2011 Normal [facility] CHEMISTRY BUN 10 7 - 22 10/10/2011 Normal [facility] CHEMISTRY CO2 23 24 - 32 10/10/2011 LOW [facility] CHEMISTRY Calcium Lvl 8.8 8.5 - 10.5 10/10/2011 [facility] CHEMISTRY Chloride Lvl 108 95 - 109 10/10/2011 Normal [facility] CHEMISTRY Potassium Lvl 4.0 3.5 - 5.1 10/10/2011 Normal [facility] CHEMISTRY Sodium Lvl 143 135 - 145 10/10/2011 Normal [facility] CHEMISTRY AGAP 16.0 10.0 - 20.0 10/10/2011 Normal [facility] HEMATOLOGY Segs-Bands # 1.3 1.5 - [...] Monocytes 5.5 2.0 - 12.0 10/10/2011 Normal [facility] HEMATOLOGY Lymphocytes 55.8 20.0 - 40.0 10/10/2011 [facility] HEMATOLOGY Segs 34.7 45.0 - 75.0 10/10/2011 [facility] HEMATOLOGY Platelet 187 133 - 450 10/10/2011 Normal [facility] HEMATOLOGY RDW 15.7 11.5 - 14.5 10/10/2011 [facility] HEMATOLOGY MCHC 33.7 32.0 - 36.0 10/10/2011 Normal [facility] HEMATOLOGY MPV 10.1 7.4 - 10.4 10/10/2011 Normal [facility] HEMATOLOGY Hct 35.6 36.0 - 48.0 10/10/2011 LOW [facility] HEMATOLOGY WBC 3.8 3.7 - 10.4 10/10/2011 Normal [facility] HEMATOLOGY MCV 91.6 81.0 - 99.0 10/10/2011 Normal [facility] HEMATOLOGY MCH 30.9 27.0 - 31.0 10/10/2011 Normal [facility] HEMATOLOGY Hgb 12.0 12.0 - 16.0 10/10/2011 Normal [facility] HEMATOLOGY RBC 3.89 4.20 - 5.40 10/10/2011 LOW [facility] BEDSIDE GLUCOSE TESTING Gluc POC Lif scn 95 70 - 99 10/10/2011 Normal <sup>1</sup>Interpretive Data: Upper Reportable Limit: 200 mg/dL. [facility] BEDSIDE GLUCOSE TESTING Comment1 Notify RN/ 10/10/2011 NA [facility] BLOOD BANK RESULTS ABO/Rh O POS 10/09/2011 Unknown [facility] BLOOD BANK RESULTS Antibody Scrn Negative (10/09/2011 10:34:00) 10/09/2011 Normal [facility] CHEMISTRY Ferritin Lvl 6 5 - 204 10/09/2011 Normal [facility] CHEMISTRY Vitamin B12 Lvl 131 211 - 911 10/09/2011 LOW [facility] CHEMISTRY Folate Lvl 15.6 >=3.0 10/09/2011 Normal [facility] CHEMISTRY Iron 57 30 - 160 10/09/2011 Normal [facility] CHEMISTRY % S[place] 12 12 - 57 10/09/2011 Normal [facility] CHEMISTRY TIBC 471 228 - 428 10/09/2011 [facility] CHEMISTRY UIBC 414 110 - 370 10/09/2011 [facility] BLOOD BANK RESULTS RBC product Product available 2 (10/09/2011 09:01:00) 10/09/2011 Normal <sup>2</sup>Result Comment: 10/09/2011 12:02 ABBEY called to diana 10/09/2011 12:02 [facility] HEMATOLOGY Hgb 8.5 12.0 - 16.0 10/09/2011 LOW [facility] HEMATOLOGY Hct 26.1 36.0 - 48.0 10/09/2011 LOW [facility] CHEMISTRY AGAP 11.4 10.0 - 20.0 10/09/2011 Normal [facility] CHEMISTRY Sodium Lvl 147 135 - 145 10/09/2011 [facility] CHEMISTRY Creatinine Lvl 1.0 0.5 - 1.4 10/09/2011 Normal [facility] CHEMISTRY BUN 9 7 - 22 10/09/2011 Normal [facility] CHEMISTRY Potassium Lvl 3.4 3.5 - 5.1 10/09/2011 LOW [facility] CHEMISTRY Glucose Lvl 90 70 - 99 10/09/2011 Normal <sup>4</sup>Interpretive Data: Adult ref erence range values reflect the clinical guidelines of the [place] [employer]. [facility] CHEMISTRY Calcium Lvl 8.5 8.5 - 10.5 10/09/2011 Normal [facility] CHEMISTRY CO2 28 24 - 32 10/09/2011 Normal [facility] CHEMISTRY Chloride Lvl 111 95 - 109 10/09/2011 [facility] HEMATOLOGY Platelet 211 133 - 450 10/09/2011 Normal [facility] HEMATOLOGY RDW 15.1 11.5 - 14.5 10/09/2011 [facility] HEMATOLOGY MPV 9.5 7.4 - 10.4 10/09/2011 Normal [facility] HEMATOLOGY MCHC 33.3 32.0 - 36.0 10/09/2011 Normal [facility] HEMATOLOGY WBC 4.1 3.7 - 10.4 10/09/2011 Normal [facility] HEMATOLOGY RBC 3.11 4.20 - 5.40 10/09/2011 LOW [facility] HEMATOLOGY Hct 28.1 36.0 - 48.0 10/09/2011 [facility] HEMATOLOGY MCV 90.4 81.0 - 99.0 10/09/2011 Normal [facility] HEMATOLOGY Hgb 9.4 12.0 - 16.0 10/09/2011 LOW [facility] HEMATOLOGY MCH 30.1 27.0 - 31.0 10/09/2011 Normal [facility] HEMATOLOGY Lymphocytes 45.7 20.0 - 40.0 10/09/2011 [facility] HEMATOLOGY Segs 41.6 45.0 - 75.0 10/09/2011 LOW [facility] HEMATOLOGY Segs-Bands # 1.7 1.5 - 8.1 10/09/2011 Normal [facility] HEMATOLOGY Basophils 0.5 0.0 - 1.0 10/09/2011 Normal [facility] HEMATOLOGY Eosinophils 2.1 0.0 - 4.0 10/09/2011 Normal [facility] HEMATOLOGY Monocytes 10.1 2.0 - 12.0 10/09/2011 Normal [facility] HEMATOLOGY Lymphocytes # 1.9 1.0 - 5.5 10/09/2011 Normal [facility] HEMATOLOGY Eosinophils # 0.1 0.0 - 0.5 10/09/2011 Normal [facility] HEMATOLOGY Basophils # 0.0 0.0 - 0.2 10/09/2011 Normal [facility] HEMATOLOGY Monocytes # 0.4 0.0 - 0.8 10/09/2011 Normal [facility] Pathology Reports No Data Provided for This Section Diagnostic Reports Report Value Date Source Abdomen/Pelvis w IV contrast CT Patient Name: LOGAN LEIVA : 1975; Age: 40 years Female MR: [id number] Study: Abdomen/Pelvis w IV contrast CT 07/13/2016 5:27 AM [employer] CLINICAL INDICATION: Abdominal pain, acute Pt states [...] abnormalities. Hepatic steatosis. Mildly distended bladder. SL: [id number] 07/13/2016 [facility] Chest 2 views DX Study: Chest 2 views DX Clinical Indication: Cough and fever Comparison: Chest x-ray from 05/02/2016 FINDINGS: The cardiac silhouette is normal in size. The lungs are clear and without consolidation or congestion. No pleural effusion or pneumothorax is seen. The osseous structures are unremarkable. IMPRESSION: No acute cardiopulmonary disease. SL: CHANA 07/13/2016 [facility] Small bowel series DX Small jamir wel series DX CLINICAL HISTORY: Abdominal distension; NOTE: No fluoroscopy was utilized. COMPARISON: None TECHNIQUE: Serial overhead images of the abdomen were performed at 15 to 30 minute intervals following ingestion of oral Omnipaque. Postsurgical change is noted in the lower lumbar spine. FINDINGS: [employer] study reveals a nonobstructive bowel gas pattern. [...] radiographic evidence for small bowel obstruction. SL: [id number] 05/04/2016 [facility] Enterography Abd/Pel w IV contrast CT [...] in the pelvis. 7. Fatty liver. SL: [id number] 05/02/2016 [facility] Chest 1view DX Study: Chest 1v [...] in the lower SVC. SL: WRArianna 05/02/2016 [facility] Nasogastric tube placement VR NASOGASTRIC TUBE PLACEMENT WITH FLUOROSCOPY: HISTORY: Abdominal distention with history of gastrojejunostomy. Nasogastric tube placement under fluoroscopy was requested. PROCEDURE: A 16-Palestinian sump tube was placed under fluoroscopic guidance [...] to her hospital room in stable condition [id number] 05/02/2016 [facility] Abdomen 2 views DX ABDOMEN, 2 VIEW HISTORY: Abdominal distension; COMPARISON: Abdominal radiography dated 09/20/[address] abdomen/pelvis dated 04/30/2016 FINDINGS: Bowel gas pattern is nonobstructive. No free air collecting under either hemidiaphragm. Cholecystectomy and lumbar fusion are noted.. SL: JULIUS 05/01/2016 [facility] Abdomen/Pelvis w IV contrast CT Clinical [...] to m arkedly distended urinary bladder. SL: [id number] 04/30/2016 [facility] Abdomen/Pelvis IV contrast only CT EXAM: CT ABDOMEN AND PELVIS WITH CONTRAST DATE: 04/12/2016 12:23 AM [employer] INDICATION: Abdominal pain, acute. COMPARISON: CT abdomen [...] 3. Moderate distention of the bladder. SL: [id number] 04/12/2016 [facility] Ankle 3 views DX EXAM: XR RIGH T ANKLE, 3 VIEWS DATE: 04/11/2016 11:32 PM [employer] INDICATION: Pain from a fall. COMPARISON: None Available. TECHNIQUE: Frontal, oblique, and lateral views of the right ankle were obtained. FINDINGS: No fracture or malalignment is present. The soft tissues are within normal limits. There are no radiopaque foreign bodies. IMPRESSION: No acute fracture or dislocation. SL: [id number] 04/11/2016 [facility] Brain wo contrast CT Clinical Indication: [...] the appropriate clinical setting. SL: JORGE 04/05/2016 [facility] Abdomen/Pelvis w IV contrast CT Study: [...] process in the abdomen or pelvis 04/05/2016 [facility] Abdomen RUQ US Clinical Indica tion: [...] has had a cholecystectomy. SL: FREDY 03/02/2016 [facility] Forearm 2 views DX Left forear [...] obscures fine bony detail. SL: 14 03/20/2015 [facility] Abdomen AP DX HISTORY: Abdomin al pain. Abdomen one view. Comparison 12/16/2013. Normal bowel gas pattern. Right upper quadrant surgical clips. Previous lower lumbar laminectomy and fusion. Bilateral pelvic phleboliths. No other pathologic calcification. IMPRESSION: No specific acute finding. SL:13 09/20/2014 [facility] Abdomen wo contrast MRI MRCP: TECHNIQUE: [...] excluded. 3. Normal pancreatic duct. SL:13 09/14/2014 [facility] Foot series LEFT FOOT SERIES- 3 [...] pad region. Otherwise negative. SL: 13 02/09/2014 [facility] Abdomen AP view Portable abdom en: [...] IMPRESSION: Nonspecific bowel distention without obstruction. SL:12/16/2013 [facility] Abdomen complete US HISTORY: A bdominal [...] laboratory data. No other acute findings SL:12/15/2013 [facility] Chest 2 views HISTORY: Abnorma l chest sounds. Two views chest. Lungs are clear. Heart size normal. There is no pleural effusion or pneumothorax. No specific osseous abnormality. IMPRESSION: No acute finding. SL:12/10/2013 [facility] Brain wo contrast CT CT BRAIN WITHOUT CONTRAST INDICATION: Headache with dizziness COMPARISON: CT brain 09/06/2013 FINDINGS: There is no evidence of acute vascular insults, space occupying lesions, hemorrhage, hydrocephalus, midline shift, or extra-axial collections. The calvarium is intact. IMPRESSION: No acute intracranial abnormalities are visualized. SL: 12/10/2013 [facility] Spine lumbar wo contrast MRI M [place] LUMBAR SPINE WITHOUT CONTRAST COMPARISON: 03/07/2012 radiograph [...] chest. New PICC line satisfactory SL:13 09/19/2013 [facility] Chest 2 views EXAM: Chest 2 views HISTORY: Abnormal chest sounds. COMPARISON: 06/05/2013. TECHNIQUE: Frontal and lateral views of the chest. FINDINGS: Heart size normal. The lungs are clear. No pleural effusion. IMPRESSION: Negative chest radiographs. SL: 14 09/19/2013 [facility] Abdomen AP view Examination: A bdomen, [...] Nonobstructive bowel gas pattern. SL: 12 09/09/2013 [facility] Abdomen wo contrast MRI MR ABD [...] and presum ed surgically absent. SL: 09/07/2013 [facility] Brain contrast CT Examinati on: CT [...] IMPRESSION: No acute intracranial abnormality. SL: 09/06/2013 [facility] Bowel small bowel series Small bowel series: COMPARISON: CT abdomen pelvis 09/01/2013 The mixer wet pour film reveals a nonobstructive bowel gas pattern. [...] significant obstruction. Fluoroscopy Time: 0.5 minutes SL:09/06/2013 [facility] Abdomen contrast MRI MRCP. TECHNIQUE: Multiple [...] duct. No definite evidence for choledocholithiasis. SL:09/03/2013 [facility] Abdomen/Pelvis w IV contrast CT CT [...] CT of the abdomen or pelvis. SL:09/01/2013 [facility] Abdomen AP view PROCEDURE: Ab domen 1 view REASON FOR EXAM: See Clinic Indication CLINICAL INDICATION: Abdominal pain, acute COMPARISON: 09/27/2012. FINDINGS: Nonspecific bowel gas pattern is present. No definite free air. Abundance of stool with within the colon. Multiple phleboliths are present in the pelvis. Postoperative cholecystectomy. Postoperative laminectomy and posterior spinal fusion are present. SL: 06/08/2013 [facility] Sinus wo contrast CT CT SINUSE [...] infectious process are identified. SL: 17 06/06/2013 [facility] Chest 2 views EXAM: Chest 2 views HISTORY: Cough, fever. COMPARISON: 02/12/2013. TECHNIQUE: Frontal and lateral views of the chest. FINDINGS: Heart size normal. The lungs are clear. No pleural effusion. IMPRESSION: Negative chest radiographs. SL:13 06/05/2013 [facility] Chest 2 views HISTORY: Chest p ain. Chest 2 views. Lungs are clear. Cardiomediastinal silhouette normal. There is no pleural effusion or pneumothorax. IMPRESSION: No acute findings. 12 02/12/2013 [facility] Hip min 2 views EXAM: RIGHT [...] are unremarkable. IMPRESSION: No acute abnormality. 09/27/2012 [facility] Brain wo contrast CT CT SCAN O F THE BRAIN DATE: 09/27/2012 at 9:42 p.m. Comparison studies: 09/16/2012. CLINICAL INFORMATION: Syncope. TECHNIQUE: Routine axial images of the brain were obtained in the unenhanced mode. FINDINGS: The brain is morphologically normal. There are no acute hemorrhages or infarcts. The howard/white interfaces are well defined. There are no mass lesions or extra-axial collections. There are no acute bony abnormalities. The calvarium is intact. IMPRESSION: 1. Normal CT scan of the brain. 09/27/2012 [facility] Consultation Notes No Data Provided for This Section Discharge Summaries No Data Provided for This Section History and Physicals No Data Provided for This Section Vital Signs Vital Sign Value Date Comments Source Respitory Rate 16 08/05/2016 [facility] Systolic (mm Hg) 106 08/05/2016 [facility] Diastolic (mm Hg) 67 08/05/2016 [facility] Heart Rate 66 08/05/2016 [facility] Temperature Oral (F) 96.8 F 08/05/2016 [facility] Height 170.18 cm 08/05/2016 [facility] Weight 68.636 08/05/2016 [facility] BMI Calculated 23.7 08/05/2016 [facility] Temperature Oral (F) 97.5 F 08/05/2016 [facility] Systolic (mm Hg) 103 08/05/2016 [facility] Diastolic (mm Hg) 72 08/05/2016 [facility] Heart Rate 108 08/05/2016 [facility] Respitory Rate 20 08/05/2016 [facility] Respitory Rate 16 07/13/2016 [facility] Heart Rate 74 07/13/2016 [facility] Systolic (mm Hg) 116 07/13/2016 [facility] Diastolic (mm Hg) 72 07/13/2016 [facility] Temperature Oral (F) 97.8 F 07/13/2016 [facility] Heart Rate 76 07/13/2016 [facility] Systolic (mm Hg) 122 07/13/2016 [facility] Diastolic (mm Hg) 76 07/13/2016 [facility] Respitory Rate 19 07/13/2016 [facility] Systolic (mm Hg) 112 07/13/2016 [facility] Diastolic (mm Hg) 62 07/13/2016 [facility] Respitory Rate 17 07/13/2016 [facility] Heart Rate 72 07/13/2016 [facility] [facility] Temperature Oral (F) 98 F 07/13/2016 [facility] Height 167.64 cm 07/13/2016 [facility] BMI Calculated 23.13 07/13/2016 [facility] Weight 65 0 07/13/2016 [facility] Temperature Oral (F) 98.3 F 07/13/2016 [facility] Respitory Rate 17 05/10/2016 [facility] Temperature Oral (F) 98.5 F 05/10/2016 [facility] Heart Rate 90 05/10/2016 [facility] Systolic [...] cm 04/06/2016 [facility] BMI Calculated 23.51 04/06/2016 [facility] Heart Rate 71 04/06/2016 [facility] Systolic (mm Hg) 129 04/06/2016 [facility] Diastolic (mm Hg) 88 04/06/2016 [facility] Systolic (mm Hg) 130 03/03/2016 [facility] Diastolic (mm Hg) 86 03/03/2016 [facility] Respitory Rate 18 03/03/2016 [facility] Temperature Oral (F) 98.2 F 03/03/2016 [facility] Heart Rate 88 03/03/2016 [facility] Temperature Oral (F) 98.0 F 03/03/2016 [...] 03/21/2015 [facility] Diastolic (mm Hg) 77 03/21/2015 [facility] Temperature Oral (F) 98.3 F 03/21/2015 [facility] Height 167.64 cm 03/21/2015 [facility] Systolic (mm Hg) 123 09/30/2014 [facility] Diastolic (mm Hg) 85 09/30/2014 [facility] Temperature Oral (F) 98 F 09/30/2014 [facility] Respitory Rate 16 09/30/2014 [facility] Heart Rate 72 09/30/2014 [facility] Heart Rate 89 09/30/2014 [facility] Systolic (mm Hg) 114 09/30/2014 [facility] Diastolic (mm Hg) 76 09/30/2014 [facility] Temperature Oral (F) 97.9 F 09/30/2014 [facility] Respitory Rate 16 09/30/2014 [facility] Respitory Rate 16 09/29/2014 [facility] Systolic (mm Hg) 110 09/29/2014 [facility] Diastolic (mm Hg) 71 09/29/2014 [facility] Heart Rate 80 09/29/2014 [facility] Temperature Oral (F) 97.5 F 09/29/2014 [facility] BMI Calculated 23.29 09/14/2014 [facility] Weight 65.455 09/14/2014 [facility] Height 167.64 cm 09/14/2014 [facility] BMI Calculated 20.72 09/14/2014 [facility] Weight 60 0 09/14/2014 [facility] Height 170.18 cm 09/14/2014 [facility] Respitory Rate 18 02/09/2014 [facility] Heart Rate 63 02/09/2014 [facility] Systolic (mm Hg) 117 02/09/2014 [facility] Diastolic (mm Hg) 79 02/09/2014 [facility] Temperature Oral (F) 97.6 F 02/09/2014 [facility] BMI Calculated 23.61 02/09/2014 [facility] Height 167.64 cm 02/09/2014 [facility] Weight 66.364 02/09/2014 [facility] Diastolic (mm Hg) 75 02/09/2014 [facility] Respitory Rate 18 02/09/2014 [facility] Heart Rate 75 02/09/2014 [facility] Temperature Oral (F) 97.7 F 02/09/2014 [facility] Systolic (mm Hg) 117 02/09/2014 [facility] Weight 66.364 02/09/2014 [facility] BMI Calculated 23.61 02/09/2014 [facility] Height 167.64 cm 02/09/2014 [facility] Diastolic (mm Hg) 69 2013 [facility] Systolic (mm Hg) 101 2013 [facility] Heart Rate 86 2013 [facility] Respitory Rate 17 2013 [facility] Temperature Oral (F) 98.2 F 2013 [facility] Diastolic (mm Hg) 78 2013 [facility] Systolic (mm Hg) 113 2013 [facility] Respitory Rate 18 2013 [facility] Temperature Oral (F) 98.0 F 2013 [facility] Heart Rate 80 2013 [facility] Diastolic (mm Hg) 82 2013 [facility] Systolic (mm Hg) 125 2013 [facility] Heart Rate 88 2013 [facility] Temperature Oral (F) 97.4 F 2013 [facility] Respitory Rate 17 2013 [facility] Height 170.18 cm 12/10/2013 [facility] BMI Calculated 21.97 12/10/2013 [facility] Weight 63.636 12/10/2013 [facility] Height 170.18 cm 12/07/2013 [facility] BMI Calculated 22.29 12/07/2013 [facility] Weight 64.545 12/07/2013 [facility] Systolic (mm Hg) 116 12/07/2013 [facility] Temperature Oral (F) 98.4 F 12/07/2013 [facility] Respitory Rate 18 12/07/2013 [facility] Heart Rate 71 12/07/2013 [facility] Diastolic (mm Hg) 74 12/07/2013 [facility] Temperature Oral (F) 98.3 F 09/24/2013 [facility] Systolic (mm Hg) 115 09/24/2013 [facility] Diastolic (mm Hg) 77 09/24/2013 [facility] Heart Rate 108 09/24/2013 [facility] Respitory Rate 16 09/24/2013 [facility] Heart Rate 92 09/24/2013 [facility] Temperature Oral (F) 98.1 F 09/24/2013 [facility] Respitory Rate 16 09/24/2013 [facility] Systolic (mm Hg) 112 09/24/2013 [facility] Diastolic (mm Hg) 75 09/24/2013 [facility] Temperature Oral (F) 98.2 F 09/24/2013 [facility] Systolic (mm Hg) 114 09/24/2013 [facility] Respitory Rate 16 09/24/2013 [facility] Heart Rate 97 09/24/2013 [facility] Diastolic (mm Hg) 73 09/24/2013 [facility] BMI Calculated 23.29 09/18/2013 [facility] Height 167.64 cm 09/18/2013 [facility] Weight 65.455 09/18/2013 [facility] Temperature Oral (F) 98.1 F 09/13/2013 [facility] Systolic (mm Hg) 104 09/13/2013 [facility] Diastolic (mm Hg) 62 09/13/2013 [facility] Diastolic (mm Hg) 50 09/13/2013 [facility] Systolic (mm Hg) 98 09/13/2013 [facility] Temperature Oral (F) 98.1 F 09/13/2013 [facility] Systolic (mm Hg) 110 09/13/2013 [facility] Diastolic (mm Hg) 64 09/13/2013 [facility] BMI Calculated 24.75 09/12/2013 [facility] Height 167.64 cm 09/12/2013 [facility] Weight 69.545 09/12/2013 [facility] Respitory Rate 18 09/12/2013 [facility] Temperature Oral (F) 98.2 F 09/12/2013 [facility] Heart Rate 100 09/12/2013 [facility] Temperature Oral (F) 97.9 F 09/10/2013 [facility] Heart Rate 72 09/10/2013 [facility] Respitory Rate 16 09/10/2013 [facility] Diastolic (mm Hg) 62 09/10/2013 [facility] Systolic (mm Hg) 111 09/10/2013 [facility] Temperature Oral (F) 97.9 F 09/10/2013 [facility] Heart Rate 92 09/10/2013 [facility] Respitory Rate 16 09/10/2013 [facility] Systolic (mm Hg) 114 09/10/2013 [facility] Diastolic (mm Hg) 66 09/10/2013 [facility] Systolic (mm Hg) 103 09/10/2013 [facility] Diastolic (mm Hg) 61 09/10/2013 [facility] Heart Rate 75 09/10/2013 [facility] Temperature Oral (F) 98.2 F 09/10/2013 [facility] Respitory Rate 18 09/10/2013 [facility] Weight 67.273 09/02/2013 [facility] BMI Calculated 23.94 09/02/2013 [facility] Height 167.64 cm 09/02/2013 [facility] Temperature Oral (F) 97.1 F 09/01/2013 [facility] Diastolic (mm Hg) 82 09/01/2013 [facility] Systolic (mm Hg) 129 09/01/2013 [facility] Respitory Rate 18 09/01/2013 [facility] Heart Rate 87 09/01/2013 [facility] Temperature Oral (F) 97.2 F 09/01/2013 [facility] Respitory Rate 18 09/01/2013 [facility] Systolic (mm Hg) 127 09/01/2013 [facility] Diastolic (mm Hg) 80 09/01/2013 [facility] Heart Rate 70 09/01/2013 [facility] Systolic (mm Hg) 138 09/01/2013 [facility] Diastolic (mm Hg) 96 09/01/2013 [facility] Respitory Rate 18 09/01/2013 [facility] Heart Rate 72 09/01/2013 [facility] Temperature Oral (F) 97.6 F 09/01/2013 [facility] Weight 63.636 09/01/2013 [facility] Systolic (mm Hg) 132 06/10/2013 [facility] Diastolic (mm Hg) 88 06/10/2013 [facility] Temperature Oral (F) 98.4 F 06/10/2013 [facility] Respitory Rate 18 06/10/2013 [facility] Heart Rate 74 06/10/2013 [facility] Respitory Rate 16 06/10/2013 [facility] Diastolic (mm Hg) 60 06/10/2013 [facility] Temperature Oral (F) 98.0 F 06/10/2013 [facility] Systolic (mm Hg) 104 06/10/2013 [facility] Heart Rate 77 06/10/2013 [facility] Respitory Rate 16 06/10/2013 [facility] Heart Rate 78 06/10/2013 [facility] Temperature Oral (F) 98.0 F 06/10/2013 [facility] Systolic (mm Hg) 107 06/10/2013 [facility] Diastolic (mm Hg) 62 06/10/2013 [facility] Weight 66.364 06/05/2013 [facility] Height 170.18 cm 06/05/2013 [facility] Respitory Rate 16 02/12/2013 [facility] Systolic (mm Hg) 114 02/12/2013 [facility] Diastolic (mm Hg) 75 02/12/2013 [facility] Heart Rate 82 02/12/2013 [facility] Respitory Rate 18 02/12/2013 [facility] Systolic (mm Hg) 124 02/12/2013 [facility] Diastolic (mm Hg) 70 02/12/2013 [facility] Heart Rate 82 02/12/2013 [facility] Systolic (mm Hg) 133 02/12/2013 [facility] Diastolic (mm Hg) 75 02/12/2013 [facility] Heart Rate 83 02/12/2013 [facility] Respitory Rate 18 02/12/2013 [facility] Weight 67.727 02/12/2013 [facility] Height 170.18 cm 02/12/2013 [facility] Temperature Oral (F) 98.8 F 02/12/2013 [facility] Weight 66.818 10/19/2012 [facility] Height 170.18 cm 10/19/2012 [facility] Weight 64.545 09/28/2012 [facility] Height 170.18 cm 09/28/2012 [facility] Temperature Oral (F) 97.9 F 08/11/2012 [facility] Heart Rate 71 08/11/2012 [facility] Diastolic (mm Hg) 74 08/11/2012 [facility] Respitory Rate 18 08/11/2012 [facility] Systolic (mm Hg) 109 08/11/2012 [facility] Heart Rate 73 08/11/2012 [facility] Diastolic (mm Hg) 60 08/11/2012 [facility] Systolic (mm Hg) 98 08/11/2012 [facility] Respitory Rate 18 08/11/2012 [facility] Temperature Oral (F) 97.9 F 08/11/2012 [facility] Diastolic (mm Hg) 55 08/11/2012 [facility] Heart Rate 64 08/11/2012 [facility] Respitory Rate 19 08/11/2012 [facility] Systolic (mm Hg) 87 08/11/2012 [facility] Temperature Oral (F) 97.6 F 08/11/2012 [facility] Weight 66.818 08/06/2012 [facility] Height 167.64 cm 08/06/2012 [facility] Height 167.64 cm 08/06/2012 [facility] Weight 66.818 08/06/2012 [facility] Diastolic (mm Hg) 70 07/19/2012 [facility] Heart Rate 92 07/19/2012 [facility] Systolic (mm Hg) 112 07/19/2012 [facility] Respitory Rate 18 07/19/2012 [facility] Temperature Oral (F) 97.4 F 07/19/2012 [facility] Diastolic (mm Hg) 76 07/19/2012 [facility] Systolic (mm Hg) 118 07/19/2012 [facility] Respitory Rate 18 07/19/2012 [facility] Heart Rate 104 07/19/2012 [facility] Temperature Oral (F) 97.8 F 07/19/2012 [facility] Systolic (mm Hg) 115 07/19/2012 [facility] Respitory Rate 18 07/19/2012 [facility] Temperature Oral (F) 97.5 F 07/19/2012 [facility] Diastolic (mm Hg) 71 07/19/2012 [facility] Heart Rate 86 07/19/2012 [facility] Height 167.64 cm 07/18/2012 [facility] Weight 66.364 07/18/2012 [facility] Weight 66.364 07/18/2012 [facility] Height 167.64 cm 07/18/2012 [facility] Height 170.18 cm 07/17/2012 [facility] Weight 66.364 07/17/2012 [facility] Weight 66.364 07/16/2012 [facility] Height 170.18 cm 07/16/2012 [facility] Diastolic (mm Hg) 73 07/11/2012 [facility] Systolic (mm Hg) 114 07/11/2012 [facility] Respitory Rate 17 07/11/2012 [facility] Heart Rate 101 07/11/2012 [facility] Temperature Oral (F) 97.7 F 07/11/2012 [facility] Diastolic (mm Hg) 82 07/11/2012 [facility] Temperature Oral (F) 97.9 F 07/11/2012 [facility] Respitory Rate 18 07/11/2012 [facility] Systolic (mm Hg) 124 07/11/2012 [facility] Heart Rate 79 07/11/2012 [facility] Diastolic (mm Hg) 73 07/11/2012 [facility] Temperature Oral (F) 97.7 F 07/11/2012 [facility] Respitory Rate 16 07/11/2012 [facility] Systolic (mm Hg) 112 07/11/2012 [facility] Heart Rate 92 07/11/2012 [facility] Height 170.18 cm 07/09/2012 [facility] Weight 66.818 07/09/2012 [facility] Weight 59.091 07/08/2012 [facility] Height 170.18 cm 07/07/2012 [facility] Weight 66.364 07/07/2012 [facility] Height 170.18 cm 05/31/2012 [facility] Weight 65.000 05/31/2012 [facility] Weight 61.818 04/08/2012 [facility] Height 167.64 cm 04/08/2012 [facility] Height 170.18 cm 02/16/2012 [facility] Weight 61.818 02/16/2012 [facility] Height 167.64 cm 01/25/2012 [facility] Weight 62.727 01/25/2012 [facility] Systolic (mm Hg) 110 01/02/2012 [facility] Heart Rate 60 01/02/2012 [facility] Diastolic (mm Hg) 82 01/02/2012 [facility] Respitory Rate 16 01/02/2012 [facility] Systolic (mm Hg) 142 01/02/2012 [facility] Diastolic (mm Hg) 73 01/02/2012 [facility] Respitory Rate 16 01/02/2012 [facility] Diastolic (mm Hg) 77 01/02/2012 [facility] Systolic (mm Hg) 113 01/02/2012 [facility] Respitory Rate 15 01/02/2012 [facility] Heart Rate 54 01/02/2012 [facility] Temperature Oral (F) 97.5 F 01/02/2012 [facility] Heart Rate 65 01/02/2012 [facility] Temperature Oral (F) 95.5 F 01/02/2012 [facility] Temperature Oral (F) 95.4 F 01/02/2012 [facility] Height 170.18 cm 12/31/2011 [facility] Weight 66.818 12/31/2011 [facility] Weight 66.875 12/31/2011 [facility] Weight 63.636 10/16/2011 [facility] Height 167.64 cm 10/16/2011 [facility] Systolic (mm Hg) 95 10/10/2011 [facility] Diastolic (mm Hg) 60 10/10/2011 [facility] Temperature Oral (F) 98.3 F 10/10/2011 [facility] Heart Rate 71 10/10/2011 [facility] Respitory Rate 16 10/10/2011 [facility] Respitory Rate 16 10/10/2011 [facility] Systolic (mm Hg) 109 10/10/2011 [facility] Temperature Oral (F) 97.6 F 10/10/2011 [facility] Heart Rate 52 10/10/2011 [facility] Diastolic (mm Hg) 71 10/10/2011 [facility] Heart Rate 47 10/10/2011 [facility] Respitory Rate 16 10/10/2011 [facility] Temperature Oral (F) 98.4 F 10/10/2011 [facility] Systolic (mm Hg) 104 10/10/2011 [facility] Diastolic (mm Hg) 62 10/10/2011 [facility] Height 170.18 cm 10/09/2011 [facility] Weight 62.727 10/09/2011 [facility] Encounters Location Location Details Encounter Type Encounter Number Reason For Visit Attending Provider ADM Date DC Date Status Source [facility] [id number] JAGDISH RIVERO 10/09/2011 10/10/2011 [facility]charged [facility] [id number] SHAJIGUERO BHATTEL 10/16/2011 10/16/2011 [facility]charged [facility] [id number] ANTONIO HERMINIA 12/30/2011 12/31/2011 [facility]charged [facility] [id number] ENAYET RAHIM 12/31/2011 01/02/2012 [facility]charged [facility] [id number] ASEM SOUMAN 01/24/2012 01/25/2012 [facility]charged [facility] [id number] ASEM SOUMAN 02/16/2012 02/16/2012 Discharged [facility] [place] [id number] 719.45 - JOINT PAIN-PELV TEO CONDON 03/07/2012 03/07/2012 Active [facility] [id number] RAMSES KOROMA 04/08/2012 04/08/2012 [facility]charged [facility] [id number] ANTONIO BETANCOURT 05/31/2012 05/31/2012 [facility]charged [facility] [id number] ANTONIO BETANCOURT 07/06/2012 07/07/2012 [facility] [id number] ROOSEVELT ALDRICH 07/08/2012 07/08/2012 [facility]charged [facility] [id number] URINARY RETENTION ENAYET RAHIM 07/10/2012 07/11/2012 [facility] [id number] RAMSES KOROMA 07/15/2012 07/16/2012 [facility]charged [facility] [id number] ENAYET RAHIM 07/17/2012 07/19/2012 [facility] [id number] ABDOMINAL PAIN ENAYET RAHIM 08/07/2012 08/11/2012 Active [facility] Emergency [id number] RENÉE RIOS 09/27/2012 09/28/2012 Active [facility] [id number] OVERDOSE ARI CHURCH 10/19/2012 10/19/2012 [facility] [id number] CHRISTION RICE 02/11/2013 02/12/2013 Discharged [facility] Inpatient [id number] ASTHMATIC BRONCHI TIS ENAYET RAHIM 06/06/2013 06/10/2013 Active [facility] [id number] 41 Antonio Riojas 09/01/2013 09/01/2013 [facility] Inpatient [id number] Enayet Rahim 09/02/2013 09/10/2013 [facility] [id number] 43 Antonio Herminia 09/12/2013 09/13/2013 [facility] Inpatient [id number] Enayet Rahim 09/18/2013 09/24/2013 [facility] [id number] Enayet Rahim 12/05/2013 12/06/2013 [facility] [id number] 44 Antonio Trane 12/07/2013 12/07/2013 [facility] Inpatient [id number] Enayet Rahim 12/12/2013 2013 [facility] [id number] 45 Prasad Roslyn 02/09/2014 02/09/2014 [facility] Inpatient [id number] Morgan Ochoa 09/14/2014 09/30/2014 [facility] [id number] Yanet Sarah 03/21/2015 03/21/2015 [facility] Emergency [id number] Roosevelt Aldrich 03/03/2016 03/03/2016 [facility] Emergency [id number] Yanet Sarah 04/05/2016 04/06/2016 [facility] Observation [id number] Nathalia Verdin 04/12/2016 04/12/2016 [facility] Inpatient [id number] Juan Pablo Garza 04/29/2016 05/11/2016 [facility] Observation [id number] Ezekiel Márquez 07/13/2016 07/13/2016 [facility] Emergency [id number] Wei Liang 08/05/2016 08/05/2016 [facility] OD [id number] 789.00 - ABDMNAL PAIN UN ENAYET RAHIM Cancel [facility] Procedures Procedure Code Date Perfomer Comments Source Biopsy of liver [id number] 05/15/2011 [facility] Gastric bypass operation 90024 011 [facility] Abdominal hysterectomy [id number] 14 [facility] Hernia repair [id number] [facility] Back fusion [id number] [facility] Internal and external hemorrhoidectomy a nd anal fissurectomy [id number] [facility] Cholecystectomy [id number] [facility] Foot joint operations [id number] [facility] Tonsil operation [id number] [facility] Abdominal hysterectomy [id number] 05 [facility] Back fusion [id number] [facility] Cholecystectomy [id number] [facility] Gastric bypass operation 60314 003 [facility] Hernia repair [id number] [facility] Internal and external hemorrhoidectomy a nd anal fissurectomy [id number] [facility] Hysterectomy [id number] [facility] Assessment and Plan Assessment and Plan Date Source Extracted from:Title: Clinical Document Author: Tulio Nguyen MD Date: 05/10/16 Progress Note - Daily [facility] Completed: Apr, 14:41 by Tulio Nguyen MD [...] PO Bedtime 05/09/16 enoxaparin 30 mg SUB-Q [id number] 04/30/16 fentaNYL 1 patch TOP Q72H 04/30/16 [...] TID 05/06/16 hydromorphone (Dilaudid) 1 mg I EARLY CHILDHOOD COORDINATOR Q6H 04/30/16 nitroglycerin (nitroglycerin 0. 4 mg [...] CONTINUE HOME MEDS FOLLOW GI RECOMMENDATIONS 04/12/2016 [facility] Extracted from:Title: Clinical Document Author: Nato Covarrubias MD Date: 09/29/14 [facility] Daily Progress Note [facility] Nato Covarrubias MD SUBJECTIVE: pt seen and [...] BG pt is accepted at [facility] await transfer MEDICATIONS Scheduled Meds (7):amitriptyline, citalopram [...] with 0.45% NaCl IV 1,000 mL 09/30/2014 [facility] Extracted from:Title: Clinical Document Author: Rafa Garcia MD Date: 12/16/13 GASTROENTEROLOGY FOLLOW-UP NOTE Ju Garcia M.D. [facility] SUBJECTIVE: No acute events reported overnight. Complains [...] normal (patient reports that she has been [id number] in the past). B12 supplementation per primary team. Elevated LFTs: elevated but stable. Has had detailed work-up within the last 6 months. Will need outpatient follow-up and possibly a Hepatology evaluation in the [facility]. We will follow the patient with you. Please call us with any questions. Ju Garcia M.D. [facility] 2013 [facility] Extracted from:Title: Clinical Document Author: Chitra Collins MD Date: 09/23/13 Progress Note - Daily Gastroenterology [facility] SUBJECTIVE: pt with post-surgical discomfort as expected, [...] IV (Dextrose 50% Syringe), LORazepam (Ativan), acetaminophen-hydrocodone ([place] 5/325 oral tablet), acetaminophen, docusate, hydrOXYzine, hydromorphone [...] me with any questions or concerns. 09/24/2013 [facility] Extracted from:Title: Clinical Document Author: Corey Bolaños MD Date: 09/10/13 Progress Daily [facility] Completed: Aug, 05:35 by Corey Bolaños MD RM: 429 - 1P, SE C4B LOGAN LEIVA 37y (: 1975) F Attending: Corey Bolaños MD Service: Internal Medicine Reason for Admission: INTRACTABLE VOMITING, ELEVATED LIVER ENZYMES Working DRG: Esophagitis, gastroent and misc digest disorders w/[place] [facility] Code status: None Specified=FULL CODE Current diet: [...] HC 25 mg rectal suppository) 1 appl PA BID 09/08/13 metoclopramide (Reglan 10 mg or [...] ml/hr 09/07/13 promethazine (Phenergan) 12.5 m g PA Q4H 09/09/13 promethazine (Phenergan) 25 mg PA Q4H 09/02/13 sodium chloride (Saline Flush 0 .9%) 5 ml IVP PRN One Time Meds: None Continuous Infusions (1): 09/04/13 Dextrose 5% with 0.9% NaCl IV 1 ,000 mL (D5NS 1,000 mL) 1,000 mL 125 ml/hr 09/10/2013 [facility] Plan of Care No Data Provided for This Section Social History Social History Date Source Social History TypeResponse Alcohol Last use: none. Previous treatment: None. Smoking Status Current every day smoker; Type: Cigarettes; Tobacco use per day: 3; Exposure to Tobacco Smoke None; Cigarette Smoking Last 365 Days Yes; Reg Smoking Cessation Counseling No 09/03/2013 [facility] Social History TypeResponse Alcohol Previous treatment: [...]
--- OUTSIDE RECORDS SUMMARY | 2019-10-09 12:32 | XMS REPORT ---
Author Author [facility] t Organization [facility] t Address [address] [place] [address] Phone Unavailable Care Team Providers Care Journalism Intern Name Role Phone NONSTAFF PCP Unavailable Lavell CASTILLO Attphys Unavailable SIMA LINARES Attphys Unavailable BRENNAN SOUSA Attphys Unavailable Aayush CAMPOS Attphys Unavailable Jt Liang Attphys Kojo Márquez Attphys Carri Garza Attphys Irvin Verdin Attphys Yelena Smith Attphys Sergo Stallworth Attphys Morgan Ochoa Attphys Prasad Mcgowan Attphys Corey Bolaños Attphys Deni Riojas Attphys Morgan Hope Attphys Kojo Márquez Admphys Carri Garza Admphys Irvin Verdin Opallu Admphys Morgan Ochoa Admphys Corey Bolaños Admphys Payers Payer Name Policy Type Policy Number Effective Date Expiration Date Lester sevilla [employer] [id number] 2019 00:00:00 [facility] [employer] [id number] 2018 00:00:00 [facility] [employer] [id number] 2018 00:00:00 [facility] [employer] [id number] 2016 00:00:00 [facility] [employer] [id number] 2016 00:00:00 [facility] Problems Condition Name Condition Details Condition Category [...] ALLERGIC REACTION CARL RGIC REACTION Active 08/05/2016 [facility] Diagnosis Active 2016-08-05 00:00:00 2016-08-05 04:01:00 [facility] FEVER FEVE R Active 07/13/2016 [facility] Diagnosis Active 2016-07-13 00:00:00 2016-07-13 10:22:00 [facility] DIVERTICULITIS DIVE RTICULITIS Active 07/13/2016 [facility] Diagnosis Active 2016-07-13 00:00:00 2016-08-05 16:05:00 [facility] ABD PAIN ABD PAIN Active 04/29/2016 [facility] Diagnosis Active 2016-04-29 00:00:00 2016-04-29 18:31:00 [facility] ABDOMINAL PAIN ABDO MARIE PAIN Active 04/29/2016 [facility] Diagnosis Active 2016-04-29 00:00:00 2016-05-03 10:33:00 [facility] INTRACTABOLE ABDOMINAL PAIN IN TRACTABOLE ABDOMINAL PAIN Active 04/11/2016 [facility] Diagnosis Active 2016-04-11 00:00:00 2016-04-12 13:07:00 [facility] SIDE PAIN SIDE PAIN Active 04/11/2016 [facility] Diagnosis Active 2016-04-11 00:00:00 2016-04-12 01:03:[address] [facility] [address] SCAN, DR SENT CT S CAN, DR SENT Active 04/05/2016 [facility] Diagnosis Active 2016-04-05 00:00:00 2016-05-25 09:18:00 [facility] DOC SEND DOC SEND Active 03/02/2016 [facility] Diagnosis Active 2016-03-02 00:00:00 2016-04-26 14:30:00 [facility] ARM INJURY ARM INJURY Active 03/20/2015 [facility] Diagnosis Active 2015-03-20 00:00:00 2015-03-20 21:29:00 [facility] INTRACTABLE NAUSEA AND VOMITING INTRACTABLE NAUSEA AND VOMITING Active 09/13/2014 [facility] Diagnosis Active 2014-09-13 00:0 0:00 2014-09-22 14:10:00 [facility] FOOT PAIN FOOT PAIN Active 02/09/2014 [facility] Diagnosis Active 2014-02-09 00:00:00 2014-02-09 10:47:00 [facility] VOMITING,NAUSEA VOMI TING,NAUSEA Active 12/10/2013 [facility] Diagnosis Active 2013-12-10 00:00:00 2013-12-11 08:45:00 [facility] NAUSEA AND VOMITING NAUS EA AND VOMITING Active 12/10/2013 [facility] Diagnosis Active 2013-12-10 00:00:00 2013-12-20 22:03:[address] [facility] [address] SENT DR Batista ENT Active 12/06/2013 [facility] Diagnosis Active 2013-12-06 00:00:00 2013-12-06 23:55:00 [facility] VOMITING VOMI TING Active 09/01/2013 [facility] Active 2013-09-01 00:00:00 2013-09-02 01:08:00 [facility] INTRACTABLE VOMITING, ELEVATED LIVER ENZ INTRACTABLE VOMITING, ELEVATED LIVER ENZ Active 09/01/2013 [facility] Diagnosis A ctive 2013-09-01 00:00:00 2013-09-05 13:40:00 [facility] VOMITING/ABD PAIN/SWELLING ABD VOMITING/ABD PAIN/SWELLING ABD Active 08/31/2013 [facility] Diagnosis Ac tive 2013-08-31 12:00:00 2013-09-01 00:59:00 [facility] BLOATING/GASTRIC PAIN/NAUSEA/PIPER/VOMITING BLOATING/GASTRIC PAIN/NAUSEA/PIPER/VOMITING Active 08/29/2013 [facility] Diagnosis Active 2013-08-29 00:00:00 2013-10-03 15:33:00 [facility] SOB SOB Active 06/05/2013 [facility] Diagnosis Active 2013-06-05 00:00:00 2013-06-05 13:29:00 [facility] ASTHMATIC BRONCHITIS ASTH MATIC BRONCHITIS Active 06/05/2013 [facility] Diagnosis Active 2013-06-05 00:00:00 2013-06-19 13:07:00 [facility] CHEST AND ARM COMPLAINTS CHES T AND ARM COMPLAINTS Active 02/11/2013 [facility] Diagnosis Active 2013-02-11 20:00:00 2013-02-11 22:43:00 [facility] OVERDOSE OVER DOSE Active 10/19/2012 [facility] Diagnosis Active 2012-10-19 00:00:00 2013-02-11 22:40:00 [facility] SEIZURES SEIZ URES Active 09/27/2012 [facility] Diagnosis Active 2012-09-27 00:00:00 2012-09-28 14:55:00 [facility] RENAL COLIC, ABDOMINAL PAIN, DEHYDRATION RENAL COLIC, ABDOMINAL PAIN, DEHYDRATION Active 08/06/2012 [facility] Diagnosis Ac tive 2012-08-06 14:01:00 2012-08-06 15:24:00 [facility] SEIZURE SEIZ URE Active 07/17/2012 [facility] Diagnosis Active 2012-07-17 13:45:00 2012-07-18 12:59:00 [facility] URINARY RETENTION URIN WALTER RETENTION Active 07/09/2012 [facility] Diagnosis Active 2012-07-09 00:00:00 2012-07-17 21:43:00 [facility] BACK PAIN BACK PAIN Active 07/07/2012 [facility] Active 2012-07-07 00:00:00 2012-07-08 02:35:00 [facility] 789.00 - ABDMNAL PAIN UN 789. 00 - ABDMNAL PAIN UN Active 06/29/2012 [facility] [place] Diagnosis Active 2012-06-29 00:01:00 2012-09-17 18:44:00 [place] [place] FALL FALL Active 05/31/2012 [facility] Active 2012-05-31 07:00:00 2012-05-31 08:10:00 [facility] 719.45 - JOINT PAIN-PELV 719. 45 - JOINT PAIN-PELV Active 03/06/2012 [facility] [place] Diagnosis Active 2012-03-06 00:01:00 2012-03-13 13:09:00 OPIEddie [facility] ALLERGIC REATION CARL RGIC REATION Active 01/24/2012 [facility] Diagnosis Active 2012-01-24 08:00:00 2012-01-24 23:27:00 [facility] GI BLEED GI B LEED Active 12/31/2011 [facility] Diagnosis Active 2011-12-31 00:00:00 2012-01-02 10:36:00 [facility] HEADACHE HEAD ACHE Active 12/31/2011 [facility] Diagnosis Active 2011-12-31 00:00:00 2011-12-31 21:03:00 [facility] RECTAL BLEED, NO BOWEL MOVEMENT X 5DAYS RECTAL BLEED, NO BOWEL MOVEMENT X 5DAYS Active 12/30/2011 [facility] Diagnosis Ac tive 2011-12-30 00:00:00 2011-12-30 23:38:00 [facility] SYNCOPE SYNC OPE Active 10/14/2011 [facility] Diagnosis Active 2011-10-14 08:00:00 2011-10-16 03:04:00 [facility] LOWER BACK PAIN LOWE R BACK PAIN Active 10/08/2011 [facility] Diagnosis Active 2011-10-08 08:00:00 2011-10-09 03:50:00 [facility] SYNCOPE, ANEMIA, HYPERNATREMIA SYNCOPE, ANEMIA, HYPERNATREMIA Active 10/08/2011 [facility] Diagnosis Active 2011-10-08 08:00:00 2011-10-09 13:27:00 [facility] Abdominal pain Abdominal pain Problem Active [facility] Failure of outpatient treatment Failure of outpatient treatment Pro blem Active [facility] Urinary tract infection UTI (urinary tract infection) Problem Active [facility] Vomiting Vomiting Problem Active [facility] Abdominal pain Abdo marie pain Active Problem 02/14/2013 [facility], MICHAEL [facility], [facility] Problem Active 2013-02-14 21:34:[address] [facility] [address], MICHAEL Dunn, [facility] Anxiety Anxi ety Active Problem 02/14/2013 [facility], MICHAEL Dunn, [facility] Problem Active 2013-02-14 21:34:34 [facility], MICHAEL Dunn, [facility] Cancer of cervix Canc er of cervix Active Problem 02/14/2013 [facility], MICHAEL Dunn, [facility] Problem Active 2013-02-14 21:34:34 [facility], MICHAEL Dunn, [facility] Depression Depr ession Active Problem 02/14/2013 [facility], MICHAEL Dunn, [facility] Problem Active 2013-02-14 21:34:[address] [facility] [address], MICHAEL Dunn, [facility] Female genital organ symptoms Female genital organ symptoms Active Problem 02/14/2013 2CANCELLED [facility], MICHAEL Dunn, [facility] Problem Active 2013-02-14 21:34:34 [facility], MICHAEL Dunn, [facility] Gastric bypass operation Lucas cecy bypass operation Active Problem 02/14/2013 [facility], MICHAEL Dunn, [facility] Problem Active 2013-02-14 21:34:34 [facility], MICHAEL Dunn, [facility] Laparoscopic procedure [place] roscopic procedure Active Problem 02/14/2013 [facility], MICHAEL Dunn, [facility] Problem Active 2013-02-14 21:34:34 [facility], MICHAEL Dunn, [facility] Lumbar puncture headache Lumb ar puncture headache Active Problem 10/18/2011 [facility] Problem Active 2011-10-18 08:21:1 3 [facility] Lysis of adhesions Lysi s of adhesions Active Problem 02/14/2013 [facility], MICHAEL Dunn, [facility] Problem Active 2013-02-14 21:34:34 [facility], MICHAEL Dunn [facility] Migraine Migr chito Active Problem 02/14/2013 [facility], MICHAEL Dunn, [facility] Problem Active 2013-02-14 21:34:34 [facility], MICHAEL Dunn, [facility] Sinusitis Sinu sitis Active Problem 02/14/2013 [facility], MICHAEL Dunn, [facility] Problem Active 2013-02-14 21:34:[address] [facility] [address], MICHAEL Dunn, [facility] Ulcer Ulce r Active Problem 02/14/2013 [facility], MICHAEL Dunn, [facility] Problem Active 2013-02-14 21:34:34 [facility], MICHAEL Dunn, [facility] Lumbar puncture headache Lumb ar puncture headache Active Problem 02/14/2013 [facility], MICHAEL Dunn, [facility] Problem Active 2013-02-14 21:34:34 [facility], MICHAEL Dunn, [facility] Kidney infection Kidn ey infection Resolved Problem 02/14/2013 [facility], [facility] Problem Resolved 2013-02-14 21:34:[address] [facility] [address], [facility] Malabsorption Le bsorption Resolved Problem 02/14/2013 [facility], [facility] Problem Resolved 2013-02-14 21:34:34 [facility], [facility] Cancer Canc er Resolved Problem 02/14/2013 [facility] Problem Resolved 2013-02-14 21:34: 34 [facility], [facility] Anxiety (finding) Anxi ety (finding) Active Problem 08/08/2016 MICHAEL Lucas, [facility] Problem Active 2016-08-08 03:04:37 MICHAEL Lucas, [facility] bipolar(Confirmed) bipo lar(Confirmed) Resolved Problem 02/11/2014 MICHAEL Lucas, [facility] Problem Resolved 2014-02-11 22:54:35 MICHAEL Lucas, [facility] Malignant neoplasm, primary (morphologic abnormality) Malignant neoplasm, primary (morphologic abnormality) Resolved Problem 03/05/2016 cervical MICHAEL Lucas [facility] Problem Resolved 2016-03-05 04:12:17 MICHAEL Lucas, [facility] Malignant tumor of cervix (disorder) Malignant tumor of cervix (disorder) Active Problem 08/08/2016 [facility] Active 2016-08-08 03:04:37 OP ID Lance [facility] Depressive disorder (disorder) Depressive disorder (disorder) Active Problem 08/08/2016 [facility] Active 2016-08-08 03:04:37 MICHAEL Lucas [facility] Female genital organ symptoms (finding) Female genital organ symptoms (finding) Active Problem 08/08/2016 CANCELLED MICHAEL [facility] Problem Active 2016-08-08 03:04:37 O PID Lance, [facility] Esophagogastrostomy, antesternal or antethoracic (proc edure) Esophagogastrostomy, antesternal or antethoracic (procedure) Active Problem 08/08/2016 [facility] 2016-08-08 03:04:37 MICHAEL Lucas [facility] high cholesterol(Confirmed) hi gh cholesterol(Confirmed) Resolved Problem 02/11/2014 [facility] 2014-02-11 22:54:35 MICHAEL Lucas [facility] hx cerv cancer(Confirmed) hx c erv cancer(Confirmed) Resolved Problem 02/11/2014 [facility] 2014-02-11 22:54:35 MICHAEL Lucas [facility] hx gastric bypass(Confirmed) h x gastric bypass(Confirmed) Resolved Problem 02/11/2014 [facility] 2014-02-11 22:54:35 MICHAEL Lucas [facility] hypoglycemia(Confirmed) hypo glycemia(Confirmed) Resolved Problem 02/11/2014 MICHAEL Lucas,[facility] Problem Resolved 2014-02-11 22:54:35 MICHAEL Lucas [facility] Infectious disorder of kidney (disorder) Infectious disorder of kidney (disorder) Resolved Problem 08/08/2016 [facility] 2016-08-08 03:04:37 MICHAEL Lucas [facility] Laparoscopic-assisted procedure (procedure) Laparoscopic-assisted procedure (procedure) Active Problem 08/08/2016 [facility] Active 2016-08-08 03:04:3 7 MICHAEL Lucas [facility] Lumbar Fusion L3 S1(Confirmed) Lumbar Fusion L3 S1(Confirmed) Resolved Problem 02/11/2014 [facility] 2014-02-11 22:54:35 OP ID [place] [facility] lumbar fusion surgery(Confirmed) lumbar fusion surgery(Confirmed) Resolved Problem 02/11/2014 [facility] Resolved 2014-02-11 22:54:35 MICHAEL Lucas [facility] Headache following lumbar puncture (disorder) Headache following lumbar puncture (disorder) Active Problem 08/08/2016 CHANTALEddie Tov[facility] Problem Active 2016-08-08 03:04:37 MICHAEL Lucas [facility] Lysis of adhesions (procedure) Lysis of adhesions (procedure) Active Problem 08/08/2016 [facility] Active 2016-08-08 03:04:37 OP ID [place], [facility] Malabsorption syndrome (disorder) Malabsorption syndrome (disorder) Resolved Problem 08/08/2016 [facility]olved 2016-08-08 03:04:37 OP ID [place], [facility] Migraine (disorder) Migr chito (disorder) Active Problem 08/08/2016 [facility] Active 2016-08-08 03:04:37 MICHAEL Lucas [facility] Sinusitis (disorder) Sinu sitis (disorder) Active Problem 08/08/2016 [facility] Active 2016-08-08 03:04:37 MICHAEL Lucas [facility] Ulcer (morphologic abnormality) Ulcer (morphologic abnormality) Active Problem 03/05/2016 MICHAEL Lucas [facility] Problem Active 2016-03-05 04:12:17 OP ID [place], [facility] Biopsy of liver (procedure) Bi opsy of liver (procedure) Active Problem 08/08/2016 [facility] Active 2016-08-08 03:04:37 MICHAEL Lucas, [facility] bipolar bipo lar Resolved Problem 06/12/2013 [facility] Problem Resolved 2013-06-12 22:04:00 [facility] high cholesterol high cholesterol Resolved Problem 06/12/2013 [facility] Problem Resolved 2013-06-12 22:04:00 [facility] hx cerv cancer hx c erv cancer Resolved Problem 06/12/2013 [facility] Problem Resolved 2013-06-12 22:04:00 [facility] hx gastric bypass hx g astric bypass Resolved Problem 06/12/2013 [facility] Problem Resolved 2013-06-12 22:04:00 [facility] hypoglycemia hypo glycemia Resolved Problem 06/12/2013 [facility] Problem Resolved 2013-06-12 22:04:00 [facility] Lumbar Fusion L3 S1 Lumb ar Fusion L3 S1 Resolved Problem 06/12/2013 [facility] Problem Resolved 2013-06-12 22:04: 00 [facility] lumbar fusion surgery lumb ar fusion surgery Resolved Problem 06/12/2013 [facility] Problem Resolved 2013-06-12 22:04: 00 [facility] Endometriosis (disorder) Endo metriosis (disorder) Active Problem 08/08/2016 [facility] Problem Active 2016-08-08 03:04:3 7 [facility] Polycystic ovaries (disorder) Polycystic ovaries (disorder) Resolved Problem 08/08/2016 [facility] Problem Resolved 2016-08-08 03:04:37 [facility] Carcinoma of cervix (disorder) Carcinoma of cervix (disorder) Resolved Problem 08/08/2016 [facility] Problem Resolved 2016-08-08 03:04:37 [facility] Crohn's disease (disorder) [employer] hn's disease (disorder) Resolved Problem 08/08/2016 [facility] Problem Resolved 2016-08-08 03:04:37 [facility] History of bypass of stomach (situation) History of bypass of stomach (situation) Resolved Problem 08/08/2016 [facility] Problem Resolved 2016-08-08 03:04:37 [place] Hypoglycemia (disorder) Hypo glycemia (disorder) Resolved Problem 08/08/2016 [facility] Problem Resolved 2016-08-08 03:04: 37 [facility] Systemic lupus erythematosus (disorder) Systemic lupus erythematosus (disorder) Resolved Problem 08/08/2016 [facility] Problem Resolved 2016-08-08 03:04:37 [place] Mechanical complication of internal orth opedic device, implant AND/OR graft (disorder) Mechanical compl ication of internal orthopedic device, implant AND/OR graft (disorder) Resolved Problem 08/08/2016 [facility] Problem Resolved 2016-08-08 03:04:37 [facility] SYNCOPE AND COLLAPSE SYNC OPE AND COLLAPSE Active [facility] Diagnosis Active 2011-10-09 13:27:00 [facility] ANEMIA NOS ANEM IA NOS Active [facility] Diagnosis Active 2011-10-09 13:27:00 [place] [...] PAIN Active [facility] Active 2016-05-03 10:33:00 [facility] Urticaria, unspecified Urti caria, unspecified 08/05/2016 08/08/2016 [facility] Problem 2016-08-05 05:00:00 2016 03:04:37 2016-08-08 03:04:37 [facility] Unspecified abdominal pain Uns pecified abdominal pain 07/13/2016 07/16/2016 [facility] Problem 2016-07-13 06:0 0:00 2016-07-16 04:19:15 2016-07-16 04:19:15 [facility] Pain in unspecified joint Pain in unspecified joint 07/13/2016 07/16/2016 [facility] Problem 2016-07-13 06:00:00 2016 04:19:15 2016-07-16 04:19:15 [facility] Discharge Diagnosis: Abdominal pain Discharge Diagnosis: Abdominal pain 04/06/2016 04/09/2016 [facility] Problem 2016-04-06 06:00:00 2016-04-09 03:49:42 2016-04-09 03:49:42 [facility] Discharge Diagnosis: Acute pyelonephritis Discharge Diagnosis: Acute pyelonephritis 03/02/2016 03/05/2016 [facility] Problem 2016-03-02 05:00:00 2016-03-05 04:12:17 2016-03-05 04:12:17 [facility] Discharge Diagnosis: Contusion of left upper arm, init ial encounter Discharge Diagnosis: Contusion of left upper arm, initial encounter 03/20/2015 03/23/2015 [facility] Problem 2015-03-20 06:0 0:00 2015-03-23 05:57:21 2015-03-23 05:57:21 [facility] Discharge Diagnosis: Transaminitis Discharge Diagnosis: Transaminitis 09/14/2014 10/03/2014 [facility] Problem 2014-09-14 05:00:00 2014-10-03 00:38:24 2014-10-03 00:38:24 [facility] Discharge Diagnosis: Abdominal pain in female patient Discharge Diagnosis: Abdominal pain in female patient 09/14/2014 10/03/2014 [facility] Problem 2014-09-14 05:00:00 2014-10-03 00:38:24 2014-09 00:38:24 [facility] Discharge Diagnosis: Contusion of foot, left Discharge Diagnosis: Contusion of foot, left 02/09/2014 02/11/2014 [facility] Problem 2014-02-09 05:00:00 2014-02-11 22:54:35 2014-02-11 22:54:35 [facility] Discharge Diagnosis: Pain in left foot Discharge Diagnosis: Pain in left foot 02/09/2014 02/11/2014 [facility] Problem 2014-02-09 05:00:00 2014-02-11 22:54:35 2014-02-11 22:54:35 [facility] Discharge Diagnosis: Headache Discharge Diagnosis: Headache 12/07/2013 12/09/2013 [facility] Problem 12-07 05:00:00 2013-12-09 21:48:24 2013-12-09 21:48:24 [facility] Discharge Diagnosis: Abdominal pain Discharge Diagnosis: Abdominal pain 09/13/2013 09/15/2013 [facility] Problem 2013-09-13 05:00:00 2013-09-15 23:04:40 2013-09-15 23:04:40 [facility] Discharge Diagnosis: Elevated liver function tests Discharge Diagnosis: Elevated liver function tests 09/02/2013 09/12/2013 [facility] Problem 2013-09-02 05:00:00 2013-09-12 21:10:33 2013-09 21:10:33 [facility] Discharge Diagnosis: abdominal pain/elevated lft's Discharge Diagnosis: abdominal pain/elevated lft's 09/01/2013 09/03/2013 [facility] Problem 2013-09-01 05:00:00 2013-09-03 20:24:25 2013-08 20:24:25 [facility] Allergies, Adverse Reactions, Alerts Allergy Name Allergy Type Status Severity Reaction(s) Onset Date Inacti ve Date Treating Clinician Comments Source iodine Allergy to Substance Active Moderate hives 2019-05-19 00:00:00 [facility] clavulanic acid Allergy to Substance Active Moderate hives 202 00:00:00 [facility] Amoxicillin Allergy to Substance Active Moderate hives 2019-05-19 00: 00:00 [facility] Shellfish Derived Propensity to adverse reactions to drug Active Anaphylaxis 2017-02-15 00:00:00 Pt reports Iodine (topical a nd IV) ok Juan Carlos Woodall Other Propensity to adverse reactions Active Rash 00:00:00 Paper tapePaper Tape Juan Carlos Woodall Amoxicillin-Pot Clavulanate Propensity to adverse reactions to drug Active Hives 2016-08-24 00:00:00 Juan Carlos Woodall aspirin aspirin Active [facility] Augmentin Augmentin Active [facility] Food MSG Food MSG Active [facility] Imitrex Imitrex Active [facility] iodine iodine Active [facility] Iron (Ferrous Sulfate) Iron (Ferrous Sulfate) Active [facility] Paper Tape Paper Tape Active [facility] shellfish shellfish Active [facility] Latex Latex Active [facility] Social History Social Habit Start Date Stop Date Quantity Comments Source Sex Assigned At Clara Woodall Alcohol intake 2017-02-17 00:00:00 2017-02-17 00:00:00 Current non-drinker of alcohol (finding) Juan Carlos Woodall Social History 2013-09-03 00:31:12 2013-09-03 00:31:12 [facility] Smoking Status Start Date Stop Date Source [...] 10 Three Times A Day for Pain [facility] mesalamine (PENTASA) 500 MG CR capsule 2017-02-15 18:15:15 Yes 1000mg [id number] Take 1,000 mg by mouth 3 (three) [...] Woodall DIAZEPAM ORAL 2017-02-15 18:15:15 Yes 10mg [id number] Take 10 mg by mouth 3 (three) [...] 300 mg capsule 2017-02-15 18:15:15 Yes 300mg [id number] Take 300 mg by mouth 3 (three) times a day. Juan Carlos Woodall TiZANidine (ZANAFLEX) 4 MG capsule 2017-02-15 18:15:15 Y es 4mg Q.[id number] Take 4 mg by mouth 3 (three) times a day. Juan Carlos Woodall Phenergan 2016-08-05 10:41:00 No 25 mg, Route: IM, ONCE, Dosing Weight 68.636, kg, Priority: STAT, Start date: 08/05/16 5:41:00 CDT, Stop date: 08/05/16 5:41:00 CDT [facility] 0.3 ML Epinephrine 1 MG/ML Prefilled Syringe 2016-08-05 10:35:00 Yes 0.3 mg, IM, PRN, PRN allergic reaction o r asthma, inject into leg for severe allergic reaction, # 1 kit, 0 Refill(s) [facility] Prednisone 50 MG Oral Tablet 2016-08-05 10:12:00 Yes 50 mg = 1 tab, PO, Daily, X 5 day, # 5 tab, 0 Refill(s) [facility] Famotidine 20 MG Oral Tablet 2016-08-05 10:12:00 Yes 20 mg = 1 tab, PO, BID, # 28 tab, 0 Refill(s) [facility] Hydroxyzine Hydrochloride 25 MG Oral Tablet 2016-08-05 10:11:00 Yes 25 mg = 1 tab, PO, QID, X 14 day, # 56 tab, 0 Refill(s) [facility] Diphenhydramine 2016-08-05 08:06:00 No 50 mg, Route: IM, ONCE, Dosing Weight 68.636, kg, Priority: STAT, Start date: 08/05/16 3:06:00 CDT, Stop date: 08/05/16 3:06:00 CDT [facility] Famotidine 2016-08-05 08:06:00 No 20 mg, Route: PO, ONCE, Dosing Weight 68.636, kg, Priority: STAT, Start date: 08/05/16 3:06:00 CDT, Stop date: 08/05/16 3:06:00 [facility]T [facility] [facility] methylPREDNISolone SODium SUCCinate 2016-08-05 08:06:00 No 125 mg, Route: IM, ONCE, Dosing Weight 68.636, kg, Priority: STAT, Start date: 08/05/16 3:06:00 CDT, Stop date: 08/05/16 3:06:00 CDT [facility] Phenergan 2016-07-13 17:25:00 No Notes: Do not give IV push. (Same as: Phenergan) [facility] Phenergan 2016-07-13 17:16:00 No 12.5 mg, Route: IVPB, ONCE, Dosing Weight 65, kg, PRN Nausea & Vomiting, Start date: 07/13/16 11:16:00 HYDROMETEOROLOGICAL TECHNICIAN [facility] Fentanyl 2016-07-13 17:16:00 No 50 microgram, Route: IV, ONCE, Dosing Weight 65, kg, Start date: 07/13/16 11:16:00 HYDROMETEOROLOGICAL TECHNICIAN, Stop date: 07/13/16 11:16:00 HYDROMETEOROLOGICAL TECHNICIAN [facility] Acetaminophen 325 MG / Hydrocodone Bitartrate 5 MG Oral Tabl et [[place] 5/325] 2016-07-13 16:37:00 Yes 1 tab, PO, Q4H, PRN for pain, X 5 day, # 24 tab, 0 Refill(s) [facility] Cipro 2016-07-13 16:18:00 No 400 mg, Route: IVPB, ONCE, Dosing Weight 65, kg, Priority: STAT, Start date: 07/13/16 10:18:00 HYDROMETEOROLOGICAL TECHNICIAN, Stop date: 07/13/16 10:18:00 HYDROMETEOROLOGICAL TECHNICIAN [facility] Flagyl 2016-07-13 16:18:00 No 500 mg, Route: IVPB, ONCE, Dosing Weight 65, kg, Priority: STAT, Start date: 07/13/16 10:18:00 HYDROMETEOROLOGICAL TECHNICIAN, Stop date: 07/13/16 10:18:00 HYDROMETEOROLOGICAL TECHNICIAN [facility] Acetaminophen 325 MG / Hydrocodone Bitartrate 5 MG Oral Tabl et [[place] 5/325] 2016-07-13 15:51:00 No 1 tab, Route: PO, Drug Form: TAB, Dosing Weight 65, kg, ONCE, STAT, Start date: 07/13/16 9:51:00 HYDROMETEOROLOGICAL TECHNICIAN, Stop date: 07/13/16 9:51:00 HYDROMETEOROLOGICAL TECHNICIAN [facility] Fentanyl 2016-07-13 13:59:00 No 50 microgram, Route: IVP, ONCE, Dosing Weight 65, kg, Priority: STAT, Start date: 07/13/16 7:59:00 HYDROMETEOROLOGICAL TECHNICIAN, Stop date: 07/13/16 7:59:00 HYDROMETEOROLOGICAL TECHNICIAN [facility] Fentanyl 2016-07-13 12:08:00 No Notes: (Same as: Sublimaze) Preservative free. [facility] Phenergan 2016-07-13 12:07:00 No Notes: Do not give IV push. (Same as: Phenergan) [facility] Zofran 2016-07-13 11:28:00 No 4 mg, Route: IVP, Drug form: INJ, ONCE, Dosing Weight 65, kg, Priority: STAT, Start date: 07/13/16 5:28:00 HYDROMETEOROLOGICAL TECHNICIAN, Stop date: 07/13/16 5:28:00 HYDROMETEOROLOGICAL TECHNICIAN [facility] Morphine 2016-07-13 11:28:00 No 4 mg, Route: IVP, ONCE, Dosing Weight 65, kg, Priority: STAT, Start date: 07/13/16 5:28:00 HYDROMETEOROLOGICAL TECHNICIAN, Stop date: 07/13/16 5:28:00 HYDROMETEOROLOGICAL TECHNICIAN [facility] Sodium Chloride 0.154 MEQ/ML Injectable Solution 2016-07-13 11:2 8:00 No 1,000 mL, 1,000 ml/hr, Infus e Over: 1 hr, Route: IV, 1,000, Drug form: INJ, ONCE, Priority: STAT, Dosing Weight 65 kg, Start date: 07/13/16 5:28:00 HYDROMETEOROLOGICAL TECHNICIAN, Duration: 1 doses or times, Stop date: 07/13/16 5:28:00 HYDROMETEOROLOGICAL TECHNICIAN [facility] gabapentin 300 MG Oral Capsule 2016-07-13 10:10:00 Yes 300 mg = 1 cap, PO, TID, # 90 cap, 0 Refill(s) [facility] mesalamine 500 MG Extended Release Capsule [Pentasa] 2 10:08:00 Yes 500 mg = 1 cap, PO, QID, # 120 cap, 0 Re fill(s) [facility] Acetaminophen 300 MG / Codeine Phosphate 30 MG Oral Tablet [Tylenol with Codeine #3] 2016-05-10 23:41:00 Yes 1 - 2 tab, PO, Q4H, PRN Pain, X 2 week, # 30 tab, 2 Refill(s) [facility] Enoxaparin 2016-05-10 04:00:00 No Notes: (S bhumi as: Lovenox) [facility] Hydromorphone 2016-05-09 16:00:00 No 0.5 mg, 0.5 mL, Route: IVP, Drug form: INJ, Q5Min, Dosing Weight 68.835, kg, PRN Pain Score 7-10, Start date: 05/09/16 10:00:00 HYDROMETEOROLOGICAL TECHNICIAN, Duration: 4 doses or times, Stop date: Limited # of times [facility] Morphine 2016-05-09 16:00:00 No Not es: (Same as:MORPhine Sulfate) [facility] Naloxone 2016-05-09 16:00:00 No Notes: Same as Narcan [facility] Flumazenil 2016-05-09 16:00:00 No Notes: (S bhumi as: Romazicon) [facility] Fentanyl 2016-05-09 16:00:00 No Notes: (Same as: Sublimaze) Preservative free. [facility] Diphenhydramine 2016-05-09 16:00:00 No Notes: (Same as: Benadryl) [facility] Labetalol 2016-05-09 16:00:00 No Notes: (Same as: Normodyne, Trandate) Push over 2 minutes Give bolus over 2-3 minutes. [facility] Acetaminophen 2016-05-09 16:00:00 No Notes: Infuse over 15 minutes Do not exceed 4gm/day of acetaminophen MEDICATION WASTE Product Size: 1000 mg Product Wasted: ___ mg [facility] Metoprolol 2016-05-09 16:00:00 No Notes: (Same as: Lopressor) Push over 2 minutes [facility] Ketorolac 2016-05-09 16:00:00 No 4 days MEDICATION WASTE Product Size: 30 mg Product Wasted: ___ mg [facility] Ondansetron 2016-05-09 16:00:00 No Notes: (Same as: Zofran) MEDICATION WASTE Product Size: 4 mg Product Wasted: ___ mg [facility] Meperidine 2016-05-09 16:00:00 No Notes: (S bhumi As: Demerol) [facility] Hydralazine 2016-05-09 16:00:00 No Notes: (Same as: Apresoline) Push over 5 minutes [facility] ondansetron (ANES) 2016-05-09 15:34:00 No Route: IV, Drug form: INJ, ONCE, Stop date: 05/09/16 9:34:00 HYDROMETEOROLOGICAL TECHNICIAN [facility] sugammadex ([facility]) 2016-05-09 15:34:00 No Route: IV, Drug form: SOLN, ONCE, Stop date: 05/09/16 9:34:00 HYDROMETEOROLOGICAL TECHNICIAN [facility] phenylephrine ([facility]) 2016-05-09 15:34:00 No Route: IV, Drug form: INJ, ONCE, Stop date: 05/09/16 9:34:00 HYDROMETEOROLOGICAL TECHNICIAN [facility] famotidine ([facility]) 2016-05-09 15:22:00 No Route: IV, Drug form: INJ, ONCE, Stop date: 05/09/16 9:22:00 HYDROMETEOROLOGICAL TECHNICIAN [facility] scopolamine ([facility]) 2016-05-09 15:22:00 No Route: Transdermal, Drug form: ERFILM, ONCE, Stop date: 05/09/16 9:22:00 HYDROMETEOROLOGICAL TECHNICIAN [facility] dexamethasone ([facility]) 2016-05-09 15:12:00 No Route: IV, Drug form: INJ, ONCE, Stop date: 05/09/16 9:12:00 HYDROMETEOROLOGICAL TECHNICIAN [facility] rocuronium ([facility]) 2016-05-09 15:12:00 No Route: IV, Drug form: INJ, ONCE, Stop date: 05/09/16 9:12:00 HYDROMETEOROLOGICAL TECHNICIAN [facility] propofol ([facility]) 2016-05-09 15:12:00 No Route: IV, Drug form: INJ, ONCE, Stop date: 05/09/16 9:12:00 HYDROMETEOROLOGICAL TECHNICIAN [facility] fentaNYL ([facility]) 2016-05-09 15:12:00 No Route: IV, Drug form: INJ, ONCE, Stop date: 05/09/16 9:12:00 HYDROMETEOROLOGICAL TECHNICIAN [facility] lidocaine ([facility]) 2016-05-09 15:12:00 No Route: IV, Drug form: INJ, ONCE, Stop date: 05/09/16 9:12:00 HYDROMETEOROLOGICAL TECHNICIAN [facility] midazolam ([facility]) 2016-05-09 15:07:00 No Route: IV, Drug form: SOLN, ONCE, Stop date: 05/09/16 9:07:00 HYDROMETEOROLOGICAL TECHNICIAN [facility] ceFAZolin ([facility]) ([facility]) 2016-05-09 14:22:00 No Route: IV, Drug form: INJ, Start date: 05/09/16 8:22:00 HYDROMETEOROLOGICAL TECHNICIAN, Stop date: 05/09/16 9:22:00 HYDROMETEOROLOGICAL TECHNICIAN [facility] LR 1000 mL INJ ([facility]) 2016-05-09 14:21:00 No Route: IV, Total Volume: 1,000, Start date: 05/09/16 8:21:00 HYDROMETEOROLOGICAL TECHNICIAN, Stop date: 05/09/16 9:21:00 HYDROMETEOROLOGICAL TECHNICIAN [facility] D5W 1,000 mL 2016-05-08 16:53:00 No 1,000 mL, Rate: 40 ml/hr, Infuse over: 25 hr, Route: IV, Dosing Weight 68.835 kg, Total Volume: 1,000, Start date: 05/08/16 10:53:00 HYDROMETEOROLOGICAL TECHNICIAN, Duration: 30 day, Stop date: 06/07/16 10:52:00 HYDROMETEOROLOGICAL TECHNICIAN [facility] Relistor 2016-05-07 15:00:00 No Notes: Same as: Relistor Restricted to Palliative Care [facility] Miralax 2016-05-07 15:00:00 No Notes: Dissolve in 8 oz of water or juice. (Same as: Miralax) [facility] Dilaudid 2016-05-06 23:35:00 No 1 mg, 1 mL, Route: IVP, Drug form: INJ, Q6H, Dosing Weight 68.835, kg, PRN Pain Score 7-10, Start date: 05/06/16 17:35:00 HYDROMETEOROLOGICAL TECHNICIAN, Duration: 30 day, Stop date: 06/05/16 17:34:00 HYDROMETEOROLOGICAL TECHNICIAN [facility] Dilaudid 2016-05-06 18:47:00 No 1 mg, 1 mL, Route: IVP, Drug form: INJ, Q4H, Dosing Weight 68.835, kg, PRN Pain Score 7-10, Start date: 05/06/16 12:47:00 HYDROMETEOROLOGICAL TECHNICIAN, Duration: 30 day, Stop date: 06/05/16 12:46:00 HYDROMETEOROLOGICAL TECHNICIAN [facility] Hydromorphone 2016-05-04 20:30:00 No 1 mg, 1 mL, Route: IV, Drug form: INJ, Q2H, Dosing Weight 66.364, kg, PRN Pain Score 4-6, Start date: 05/04/16 14:30:00 HYDROMETEOROLOGICAL TECHNICIAN, Duration: 30 day, Stop date: 06/03/16 14:29:00 HYDROMETEOROLOGICAL TECHNICIAN [facility] Mesalamine (Pentasa) 500 mg capsule 2016-05-04 19:00:00 No Mesalamine (Pentasa) 500 mg capsule, 1,000 mg, 2 cap, Drug form: MISC, Route: PO, TID, 05/04/16 13:00:00 HYDROMETEOROLOGICAL TECHNICIAN, Duration: 30 day, Stop date: 06/03/16 9:00:00 HYDROMETEOROLOGICAL TECHNICIAN [facility] Propranolol 2016-05-03 23:00:00 No Notes: Give with food. (Same as: Inderal) [facility] Citrate of Magnesia 2016-05-01 15:38:00 No Notes: (Same as: Citrate of Magnesia) Concentration: 1.745 gm / 30 mL [facility] zolpidem 2016-05-01 04:29:00 No Notes: ([facility] As: Ambien) [facility] Mirtazapine 2016-05-01 03:00:00 No Notes: ( Same as:Remeron) [facility] SENOKOT-S 2016-05-01 03:00:00 No Notes: (Same as Senokot-S) Equiv. to Marlene-Colace. [facility] pt own buprenorphine (Belbuca) 2016-05-01 02:11:00 No pt own buprenorphine (Belbuca), 150 microgram, Drug form: MISC, Route: BUC, TID, PRN Pain Score 4-6, 04/30/16 20:11:00 HYDROMETEOROLOGICAL TECHNICIAN, Duration: 30 day, Stop date: 05/30/16 20:10:00 HYDROMETEOROLOGICAL TECHNICIAN [facility] Propranolol 2016-04-30 23:00:00 No Notes: Take with food. Do not crush or chew. (Same as: Inderal [place]) [facility] gabapentin 100 MG Oral Capsule 2016-04-30 22:00:00 No Notes: (Same as: Neurontin) [facility] Diazepam 2016-04-30 22:00:00 No Notes: ([facility] as: Valium) [facility] Atropine 2016-04-30 20:50:00 No 0.5 mg, 5 mL, Route: IVP, Drug form: INJ, ONCE, Dosing Weight 66.364, kg, PRN Bradycardia, Start date: 04/30/16 14:50:00 HYDROMETEOROLOGICAL TECHNICIAN [facility] Nitroglycerin 0.4 MG Sublingual Tablet 2016-04-30 20:50:00 No Notes: (Same as:Nitroquick, Nitrostat) "Do Not Crush" Sublingual tablet [facility] Chlordiazepoxide Hydrochloride 5 MG / Clidinium bromide 2.5 MG Oral Capsule 2016-04-30 17:30:00 No Notes: (Same As: L ibrax) [facility] Citrate of Magnesia 2016-04-30 15:45:00 No Notes: (Same as: Citrate of Magnesia) Concentration: 1.745 gm / 30 mL [facility] Macrobid 2016-04-30 15:00:00 No Notes: Not recommended for patients with CrCl<50 ml/min (Same as:Macrobid) With food. [facility] Multivitamins with Folic Acid 0.8 mg oral tablet 2016-04-30 15:00:00 No 1 tab, Route: PO, Drug Form: TAB, Dosing Weight 66.364, kg, Daily, Start date: 04/30/16 9:00:00 HYDROMETEOROLOGICAL TECHNICIAN, Duration: 30 day, Stop date: 05/29/16 9:00:00 HYDROMETEOROLOGICAL TECHNICIAN [facility] Pentasa 2016-04-30 15:00:00 No 500 mg, Route: PO, TID, Dosing Weight 66.364, kg, Start date: 04/30/16 9:00:00 HYDROMETEOROLOGICAL TECHNICIAN, Duration: 30 day, Stop date: 05/29/16 17:00:00 HYDROMETEOROLOGICAL TECHNICIAN [facility] Folic Acid 2016-04-30 15:00:00 No Notes: (S bhumi as: Folvite) [facility] Fentanyl 2016-04-30 15:00:00 No 1 patch, Route: TOP, Drug form: ERFILM, Q72H, Dosing Weight 66.364, kg, Start date: 04/30/16 9:00:00 HYDROMETEOROLOGICAL TECHNICIAN, Duration: 30 day, Stop date: 05/27/16 9:00:00 HYDROMETEOROLOGICAL TECHNICIAN [facility] Diazepam 2016-04-30 15:00:00 No 10 mg, Route: PO, Drug form: TAB, TID, Dosing Weight 66.364, kg, Start date: 04/30/16 9:00:00 HYDROMETEOROLOGICAL TECHNICIAN, Duration: 30 day, Stop date: 05/29/16 17:00:00 HYDROMETEOROLOGICAL TECHNICIAN [facility] Citalopram 2016-04-30 15:00:00 No 40 mg, 4 tab, Route: PO, Drug form: TAB, Daily, Dosing Weight 66.364, kg, Start date: 04/30/16 9:00:00 HYDROMETEOROLOGICAL TECHNICIAN, Duration: 30 day, Stop date: 05/29/16 9:00:00 HYDROMETEOROLOGICAL TECHNICIAN [facility] Please bring Pt's Own Buprenorphine to pharmacy for label 2016-04-30 15:00:00 No Please bring P t's Own Buprenorphine to pharmacy for label, Reminder, Drug form: MISC, Route: MISC, Q12H, 04/30/16 9:00:00 HYDROMETEOROLOGICAL TECHNICIAN, Duration: 30 day, Stop date: 05/29/16 21:00:00 HYDROMETEOROLOGICAL TECHNICIAN [facility] XIFAXAN 2016-04-30 15:00:00 No Notes: Same as: Xifaxan [facility] pantoprazole 2016-04-30 15:00:00 No Notes: Tablet should not be chewed or crushed. (Same as: Protonix) [facility] Prednisone 1 MG Oral Tablet 2016-04-30 15:00:00 No Notes: (Same as: PredniSONE) [facility] 2016-04-30 14:40:00 No Notes: ( Same as: Zofran) [facility] Temazepam 2016-04-30 14:28:00 No Notes: (Sa me As: Restoril) [facility] 72 HR Scopolamine 0.0139 MG/HR Transdermal Patch 2016-04-30 14:2 8:00 No Notes: Change patch every 72 hours (Same as: Transde rm-Scop) [facility] Dicyclomine 2016-04-30 14:27:00 No Notes: ( Same as: Bentyl) [facility] Buprenorphine 2016-04-30 14:27:00 No 150 microgram, Route: BUC, Drug form: FILM, TID, Dosing Weight 66.364, kg, PRN Pain Score 1-3, Start date: 04/30/16 8:27:00 HYDROMETEOROLOGICAL TECHNICIAN, Duration: 30 day, Stop date: 05/30/16 8:26:00 HYDROMETEOROLOGICAL TECHNICIAN [facility] Promethazine 2016-04-30 14:27:00 No Notes: (Same as: Phenergan) [facility] D5NS 1,000 mL 2016-04-30 13:08:00 No 1,000 mL, Rate: 100 ml/hr, Infuse over: 10 hr, Route: IV, Dosing Weight 66.364 kg, Total Volume: 1,000, Start date: 04/30/16 7:08:00 HYDROMETEOROLOGICAL TECHNICIAN, Duration: 30 day, Stop date: 05/30/16 7:07:00 HYDROMETEOROLOGICAL TECHNICIAN [facility] Hydromorphone 2016-04-30 13:07:00 No 1.25 mg, 1.25 mL, Route: IV, Drug form: INJ, Q4H, Dosing Weight 66.364, kg, PRN Pain Score 6-10, Start date: 04/30/16 7:07:00 HYDROMETEOROLOGICAL TECHNICIAN, Stop date: 05/30/16 7:06:00 HYDROMETEOROLOGICAL TECHNICIAN [facility] nitrofurantoin 2016-04-30 13:01:00 No 100 mg, PO, BID, # 14 cap, 0 Refill(s) [facility] Pentasa 2016-04-30 13:01:00 No 500 mg, PO, TID, 0 Refill(s) [facility] SENOKOT-S 2016-04-30 12:46:00 Yes 2 tab, PO, Bedtime, 0 Refill(s) [facility] Classic 2016-04-30 12:46:00 Yes 1 tab, PO, Daily, 0 Refill(s) [facility] diazepam 10 mg oral tablet 2016-04-30 12:46:00 Yes 10 mg = 1 tab, PO, TID, 0 Refill(s) [facility] rifaximin 550 MG Oral Tablet [XIFAXAN] 2016-04-30 12:46:00 Yes 550 mg = 1 tab, PO, BID, 0 Refill(s) [facility] ondansetron 8 mg oral tablet 2016-04-30 12:46:00 Yes 8 mg = 1 tab, PO, TID, 0 Refill(s) [facility] mirtazapine 7.5 mg oral tablet 2016-04-30 12:46:00 Yes 7.5 mg = 1 tab, PO, Bedtime, 0 Refill(s) [facility] Sodium Chloride 0.154 MEQ/ML Injectable Solution 2016-04-30 11:5 5:00 No 1,000 mL, Rate: 125 ml/hr, I nfuse over: 8 hr, Route: IV, Dosing Weight 65.455 kg, Total Volume: 1,000, Start date: 04/30/16 5:55:00 HYDROMETEOROLOGICAL TECHNICIAN, Duration: 30 day, Stop date: 05/30/16 5:54:00 HYDROMETEOROLOGICAL TECHNICIAN [facility] Saline Flush 0.9% 2016-04-30 11:55:00 No Notes: (Same as: BD Posiflush) [facility] Acetaminophen 2016-04-30 11:55:00 No Notes: Do not exceed 4 gm/day. (Same as: Tylenol) [facility] Ondansetron 2016-04-30 11:55:00 No Notes: (Same as: Zofran) MEDICATION WASTE Product Size: 4 mg Product Wasted: ___ mg [facility] Morphine 2016-04-30 11:55:00 No Not es: (Same as:MORPhine Sulfate) [facility] Morphine 2016-04-30 11:01:00 No 4 mg, Route: IVP, ONCE, Dosing Weight 65.455, kg, Priority: STAT, Start date: 04/30/16 5:01:00 HYDROMETEOROLOGICAL TECHNICIAN, Stop date: 04/30/16 5:01:00 HYDROMETEOROLOGICAL TECHNICIAN [facility] Ondansetron 2016-04-30 11:01:00 No 4 mg, Route: IVP, Drug form: INJ, ONCE, Dosing Weight 65.455, kg, Priority: STAT, Start date: 04/30/16 5:01:00 HYDROMETEOROLOGICAL TECHNICIAN, Stop date: 04/30/16 5:01:00 HYDROMETEOROLOGICAL TECHNICIAN [facility] Hydromorphone 2016-04-30 06:06:00 No 1 mg, Route: IVP, ONCE, Dosing Weight 65.455, kg, Priority: STAT, Start date: 04/30/16 0:06:00 HYDROMETEOROLOGICAL TECHNICIAN, Stop date: 04/30/16 0:06:00 HYDROMETEOROLOGICAL TECHNICIAN [facility] Sodium Chloride 0.154 MEQ/ML Injectable Solution 2016-04-30 01:4 7:00 No 1,000 mL, 2,000 ml/hr, Infus e Over: 30 minutes, Route: IV, 1,000, Drug form: INJ, ONCE, Priority: STAT, Dosing Weight 65.455 kg, Start date: 04/29/16 19:47:00 HYDROMETEOROLOGICAL TECHNICIAN, Duration: 1 doses or times, Stop date: 04/29/16 19:47:00 HYDROMETEOROLOGICAL TECHNICIAN [facility] Ondansetron 2016-04-30 01:47:00 No Notes: (Same as: Rukhsana) MEDICATION WASTE Product Size: 4 mg Product Wasted: ___ mg [facility] Protonix 2016-04-13 13:30:00 No Notes: Tablet should not be chewed or crushed. (Same as: Protonix) [facility] Pentasa 2016-04-12 23:00:00 No 1,000 mg, 4 cap, Route: PO, Drug form: ERCAP, QID, Dosing Weight 64.091, kg, Start date: 04/12/16 17:00:00 HYDROMETEOROLOGICAL TECHNICIAN, Duration: 30 day, Stop date: 05/12/16 13:00:00 HYDROMETEOROLOGICAL TECHNICIAN [facility] fentaNYL 25 mcg/hr transdermal film, extended release 2016-04-12 21:25:00 Yes 1 patch, TOP, Q72H, 0 Refill(s) [facility] tizanidine 4 mg oral tablet 2016-04-12 21:25:00 Yes 4 mg, PO, BID, 0 Refill(s) [facility] propranolol 80 mg oral capsule, extended release 2016-04-12 21:25:00 Yes 80 mg = 1 cap, PO, Daily, # 30 cap, 0 Refill(s) [facility] promethazine 50 mg oral tablet 2016-04-12 21:25:00 Yes 50 mg = 1 tab, PO, Q6H, PRN Nausea & Vomiting, # 40 tab, 0 Refill(s) [facility] citalopram 40 mg oral tablet 2016-04-12 21:25:00 Yes 40 mg = 1 tab, PO, Daily, # 30 tab, 0 Refill(s) [facility] Folic Acid 2016-04-12 21:25:00 Yes 2 mg, PO, Daily, 0 Refill(s) [facility] dicyclomine 10 mg oral capsule 2016-04-12 21:25:00 Yes 20 mg = 2 cap, PO, TID, PRN Spasm, 0 Refill(s) [facility] predniSONE 10 mg oral tablet 2016-04-12 21:25:00 Yes See Special Instructions, PO, Daily, 12 day regimen: 2 weeks - 30 mg (3 tabs) daily 2 weeks - 20 mg (2 tabs) daily 2 weeks- 1.5tabs daily 2 weeks - 10 mg (1 tab) daily 2 weeks - 1/2 tab daily, # 24 tab, 0 Refill(s) [facility] temazepam 30 mg oral capsule 2016-04-12 21:25:00 Yes 30 mg = 1 cap, PO, Bedtime, PRN Sleep, # 14 cap, 0 Refill(s) [facility] gabapentin 100 MG Oral Capsule 2016-04-12 21:25:00 Yes 100 mg = 1 cap, PO, TID, # 90 cap, 1 Refill(s) [facility] pantoprazole 40 mg oral enteric coated tablet 2016-04-12 21:25:0 0 Yes 40 mg = 1 tab, PO, BID, 0 Refill(s) [facility] Vitamin B 12 2016-04-12 21:25:00 Yes 1,000 microgram, IM, q 2 weeks, 0 Refill(s) [facility] 72 HR Scopolamine 0.0139 MG/HR Transdermal Patch 2016-04-12 21:25:00 Yes 1.5 mg = 1 patch, TOP, Q72H, PRN Other-Se e Comments, # 4 ea, 0 Refill(s) [facility] mesalamine 500 MG Extended Release Capsule [Pentasa] 2 21:25:00 Yes 1,000 mg = 2 cap, PO, TID, # 120 cap, 0 Refill(s) [facility] Buprenorphine 0.15 MG Buccal Film [Belbuca] 2016-04-12 21:25:00 Yes 150 microgram = 1 ea, BUC, TID, PRN Pain Score 1-3, 0 Refill(s) [facility] diazepam 10 mg oral tablet 2016-04-12 21:25:00 Yes 10 mg = 1 tab, PO, TID, 0 Refill(s) [facility] zolpidem 12.5 mg oral tablet, extended release 2016-04-12 21:25: 00 Yes 12.5 mg = 1 tab, PO, Bedtime, PRN for sleep, 0 Refill( s) [facility] Chlordiazepoxide Hydrochloride 5 MG / Clidinium bromide 2.5 MG Oral Capsule 2016-04-12 21:25:00 Yes 2 cap, PO, TID-Bef ore Meals, 0 Refill(s) [facility] Dilaudid 2016-04-12 11:12:00 No 0.5 mg, 0.5 mL, Route: IV, Drug form: INJ, Q4H, Dosing Weight 64.091, kg, PRN Pain Score 6-10, Priority: Routine, Start date: 04/12/16 5:12:00 HYDROMETEOROLOGICAL TECHNICIAN, Duration: 30 day, Stop date: 05/12/16 5:11:00 HYDROMETEOROLOGICAL TECHNICIAN [facility] Acetaminophen 2016-04-12 11:12:00 No Notes: Do not exceed 4 gm/day. (Same as: Tylenol) [facility] Saline Flush 0.9% 2016-04-12 11:12:00 No Notes: (Same as: BD Posiflush) [facility] D5W 1/2NS 1,000 mL 2016-04-12 11:12:00 No 1,000 mL, Rate: 125 ml/hr, Infuse over: 8 hr, Route: IV, Dosing Weight 64.091 kg, Total Volume: 1,000, Start date: 04/12/16 5:12:00 HYDROMETEOROLOGICAL TECHNICIAN, Duration: 30 day, Stop date: 05/12/16 5:11:00 HYDROMETEOROLOGICAL TECHNICIAN [facility] D5W 1/2NS 1,000 mL 2016-04-12 11:01:00 No 1,000 mL, Rate: 75 ml/hr, Infuse over: 13.3 hr, Route: IV, Dosing Weight 64.091 kg, Total Volume: 1,000, Start date: 04/12/16 5:01:00 HYDROMETEOROLOGICAL TECHNICIAN, Duration: 30 day, Stop date: 05/12/16 5:00:00 HYDROMETEOROLOGICAL TECHNICIAN [facility] Dilaudid 2016-04-12 11:00:00 No 0.5 mg, Route: IVP, ONCE, Dosing Weight 64.091, kg, Priority: STAT, Start date: 04/12/16 5:00:00 HYDROMETEOROLOGICAL TECHNICIAN, Stop date: 04/12/16 5:00:00 HYDROMETEOROLOGICAL TECHNICIAN [facility] Dilaudid 2016-04-12 06:24:00 No 0.5 mg, 0.5 mL, Route: IVP, Drug form: INJ, ONCE, Dosing Weight 64.091, kg, Priority: STAT, Start date: 04/12/16 0:24:00 HYDROMETEOROLOGICAL TECHNICIAN, Stop date: 04/12/16 0:24:00 HYDROMETEOROLOGICAL TECHNICIAN [facility] Phenergan 2016-04-12 06:24:00 No Notes: Do not give IV push. (Same as: Phenergan) [facility] Saline Flush 0.9% 2016-04-12 00:21:00 No Notes: (Same as: BD Posiflush) [facility] Acetaminophen 325 MG / Hydrocodone Bitartrate 5 MG Oral Tabl et [[place] 5/325] 2016-04-06 09:12:00 Yes 100.4 F, X 5 day, # 16 tab, 0 Refill(s) [facility] Dilaudid 2016-04-06 08:07:00 No 1 mg, Route: IV, ONCE, Dosing Weight 64.091, kg, Start date: 04/06/16 2:07:00 HYDROMETEOROLOGICAL TECHNICIAN, Stop date: 04/06/16 2:07:00 HYDROMETEOROLOGICAL TECHNICIAN [facility] Promethazine 2016-04-06 03:58:00 No Notes: Do not give IV push. (Same as: Phenergan) [facility] Dilaudid 2016-04-06 03:58:00 No 1 mg, Route: IV, ONCE, Dosing Weight 64.091, kg, Start date: 04/05/16 21:58:00 HYDROMETEOROLOGICAL TECHNICIAN, Stop date: 04/05/16 21:58:00 HYDROMETEOROLOGICAL TECHNICIAN [facility] Ondansetron 2016-04-06 02:18:00 No Notes: ( Same as: Zofran ODT) [facility] sodium chloride 0.9% 1000 ml INJ 1,000 m L + folic acid 1 mg + Vitamin B1 500 mg + multivitamin 10 m 2016-04-06 00:54:00 No 1,000 mL, Rate: 100 ml/hr, Infuse over: 10.2 hr, Route: IV, Dosing Weight 64.091 kg, Total Volume: 1,015.2, Start date: 04/05/16 18:54:00 HYDROMETEOROLOGICAL TECHNICIAN, Duration: 1 doses or times, Stop date: 04/06/16 5:05:00 HYDROMETEOROLOGICAL TECHNICIAN [facility] Sodium Chloride 0.154 MEQ/ML Injectable Solution 2016-04-06 00:1 5:00 No 1,000 mL, Rate: 100 ml/hr, I nfuse over: 10 hr, Route: IV, Dosing Weight 64.091 kg, Total Volume: 1,000, thiamine 500mg total, Start date: 04/05/16 18:15:00 HYDROMETEOROLOGICAL TECHNICIAN, Duration: 1 doses or times, Stop date: 04/06/16 4:14:00 HYDROMETEOROLOGICAL TECHNICIAN [facility] Sodium Chloride 0.154 MEQ/ML Injectable Solution 2016-04-06 00:1 3:00 No 1,000 mL, Rate: 100 ml/hr, Infuse over: 10 hr, Route: IV, Dosing Weight 64.091 kg, Total Volume: 1,000, Start date: 04/05/16 18:13:00 HYDROMETEOROLOGICAL TECHNICIAN, Duration: 1 doses or times, Stop date: 04/06/16 4:12:00 HYDROMETEOROLOGICAL TECHNICIAN [facility] Sodium Chloride 0.154 MEQ/ML Injectable Solution 2016-04-06 00:1 2:00 No 1,000 mL, 2,000 ml/hr, Infus e Over: 30 minutes, Route: IV, 1,000, Drug form: INJ, ONCE, Priority: STAT, Dosing Weight 64.091 kg, Start date: 04/05/16 18:12:00 HYDROMETEOROLOGICAL TECHNICIAN, Duration: 1 doses or times, Stop date: 04/05/16 18:12:00 HYDROMETEOROLOGICAL TECHNICIAN [facility] Saline Flush 0.9% 2016-04-06 00:10:00 No Notes: (Same as: BD Posiflush) [facility] Ondansetron (Zofran Odt) 4 Mg Tab.rapdis, 4 Mg Oral On dansetron (Zofran Odt) 4 Mg Tab.rapdis, 4 Mg Oral 2016-03-15 00:00:00 2017-07-09 00:00:00 No Willian Pinto Md 4 Q4-6H Prn [facility] Promethazine Hcl (Phenergan Supp*) 25 Mg Supp, 25 Mg R ectal Promethazine Hcl (Phenergan Supp*) 25 Mg Supp, 25 Mg Rectal 2016-03-15 00:00:00 2017-07-09 00:00:00 Orquidea Pinto Md 25 Every 8 Hours [facility] Acetaminophen With Codeine (Tylenol With Codeine #3 Tablet) 1 Each Tablet, 300 Mg Oral Acetaminophen With Codeine (Tylenol With Codeine #3 Tablet) 1 Each Tablet, 300 Mg Oral 2016-03-15 00:00:00 2016-08-10 00:00:00 No Willian quinonez Md 300 Every 6 Hours as needed for Pain [facility] Levofloxacin (Levaquin) 500 Mg Tablet, 500 Mg Oral Lev ofloxacin (Levaquin) 500 Mg Tablet, 500 Mg Oral 2016-03-15 00:00:00 2016-08-10 00:00:00 Orquidea Pinto Md 500 Daily [facility] Morphine 2016-03-03 03:39:00 No 4 mg, Route: IVP, ONCE, Dosing Weight 61.818, kg, Priority: STAT, Start date: 03/02/16 22:39:00 CDT, Stop date: 03/02/16 22:39:00 CDT [facility] Acetaminophen 300 MG / Codeine Phosphate 30 MG Oral Tablet [Tylenol with Codeine #3] 2016-03-03 03:16:00 Yes 1 tab, PO, Q6H, PRN Pain, X 5 day, # 20 tab, 0 Refill(s) [facility] Cephalexin 500 MG Oral Capsule [Keflex] 2016-03-03 03:16:00 Yes 500 mg = 1 cap, PO, QID, X 7 day, # 28 cap, 0 Refill(s) [facility] Ceftriaxone 2016-03-03 03:08:00 No Notes: (Same As: Rocephin). Use with 100 mL NS and infuse over 30 min MEDICATION WASTE Product Size: 1000 mg Product Wasted: ___ mg [facility] Promethazine 2016-03-03 03:01:00 No 12.5 mg, Route: IVPB, ONCE, Dosing Weight 61.818, kg, Priority: STAT, Start date: 03/02/16 22:01:00 CDT, Stop date: 03/02/16 22:01:00 CDT Kristen heast Ondansetron 2016-03-03 01:54:00 No 4 mg, Route: IVP, Drug form: INJ, ONCE, Dosing Weight 61.818, kg, Priority: STAT, Start date: 03/02/16 20:54:00 CDT, Stop date: 03/02/16 20:54:00 CDT [facility] Morphine 2016-03-03 01:54:00 No 4 mg, Route: IVP, ONCE, Dosing Weight 61.818, kg, Priority: STAT, Start date: 03/02/16 20:54:00 CDT, Stop date: 03/02/16 20:54:00 CDT [facility] Saline Flush 0.9% 2016-03-03 00:27:00 No Notes: (Same as: BD Posiflush) [facility] tramadol hydrochloride 50 MG Oral Tablet 2015-03-21 04:12:00 Yes 50 mg = 1 tab, PO, BID, X 7 day, # 14 tab, 0 Refill(s) [facility] Morphine 2015-03-21 04:11:00 No 4 mg, Route: IM, Drug form: INJ, ONCE, Dosing Weight 64.545, kg, Priority: STAT, Start date: 03/20/15 22:11:00, Stop date: 03/20/15 22:11:00 [facility] t Ketorolac 2014-09-27 03:02:00 No 4 days MEDICATION WASTE Product Size: 30 mg Product Wasted: ___ mg [facility] Acetaminophen 325 MG / butalbital 50 MG / Caffeine 40 MG Ora l Tablet [Esgic] 2014-09-27 03:00:00 No Notes: (yzjblrlrtmeed-wujchzqosg-ruoycgva 325-50-40mg) Do not exceed 4 gm/day of acetaminophen. (Same as: Esgic, Fioricet) [facility] Acetaminophen 300 MG / butalbital 50 MG / Caffeine 40 MG Oral Capsule [Fioricet] 2014-09-26 22:40:00 No Notes: (rvlnauudfpnln-nsjkljylfw-luepcsvv 325-50-40mg) Do not exceed 4 gm/day of acetaminophen. (Same as: Esgic, Fioricet) [facility] Promethazine 2014-09-26 16:48:00 No Notes: (Same as: Phenergan) [facility] Promethazine 2014-09-26 16:47:00 No Notes: (Same as: Phenergan) [facility] GI cocktail 2014-09-25 15:24:00 No Notes: G.I. Cocktail = antacid with simethicone 22.5 mL - lidocaine viscous 7.5 mL [facility] Glucose 50 MG/ML / Sodium Chloride 0.0769 MEQ/ML Injectable Solution 2014-09-21 05:34:00 No 1,000 mL, Rate: 125 ml/hr, Infuse over: 8 hr, Route: IV, Dosing Weight 65.455 kg, Total Volume: 1,000, Start date: 09/21/14 0:34:00, Stop date: 10/21/14 0:33:00 [facility] d50 syringe 2014-09-21 05:17:00 No 12.5 gm, 25 mL, Route: IVP, Drug Form: INJ, Dosing Weight 65.455, kg, PRN, PRN Blood Glucose Results, Start date: 09/21/14 0:17:00, Duration: 30 day, Stop date: 10/21/14 0:16:00 [facility] Ondansetron 2014-09-19 21:55:00 No Notes: (Same as: Zofran) MEDICATION WASTE Product Size: 4 mg Product Wasted: ___ mg [facility] Phenergan 2014-09-19 21:54:00 No Notes: (Sa me as: Phenergan) [facility] Oxycodone Hydrochloride 5 MG Oral Tablet 2014-09-19 21:54:00 No Notes: (Same as: Roxicodone) [facility] t 72 HR Scopolamine 0.0139 MG/HR Transdermal Patch 2014-09-18 18:0 0:00 No Notes: Change patch every 72 hours (Same as: Transde rm-Scop) [facility] Nicotine 2014-09-17 17:00:00 No 21 mg, 1 patch, Route: TOP, Drug form: ERFILM, Daily, Dosing Weight 65.455, kg, Start date: 09/17/14 12:00:00, Duration: 30 day, Stop date: 10/17/14 9:00:00 [facility] Sodium Chloride 0.154 MEQ/ML Injectable Solution 2014-09-16 17:2 2:00 No 500 mL, Rate: 25 ml/hr, Infu se over: 20 hr, Route: IV, Dosing Weight 65.455 kg, Total Volume: 500, Start date: 09/16/14 12:22:00, Duration: 1 day, Stop date: 09/17/14 12:21:00 [facility] Protonix 2014-09-16 02:00:00 No Notes: Tablet should not be chewed or crushed. (Same as: Protonix) [facility] Amitriptyline 2014-09-15 18:00:00 No Notes: (Same as: Elavil) [facility] Dilaudid 2014-09-15 15:53:00 No 1 mg, 1 mL, Route: IV, Drug form: INJ, Q4H, Dosing Weight 65.455, kg, PRN Pain Score 7-10, Start date: 09/15/14 10:53:00, Duration: 30 day, Stop date: 10/15/14 10:52:00 [facility] Celexa 2014-09-15 14:00:00 No Notes: (Same As: CeleXA) [facility] Hydroxyzine 2014-09-15 02:00:00 No Notes: (Same as: Atarax) Avoid alcohol. [facility] Diazepam 2014-09-14 23:00:00 No Notes: ([facility] e as: Valium) [facility] Dilaudid 2014-09-14 18:03:00 No 2 mg, 2 mL, Route: IV, Drug form: INJ, Q4H, Dosing Weight 65.455, kg, PRN Pain Score 7-10, Start date: 09/14/14 13:03:00, Stop date: 10/14/14 13:02:00 [facility] Acetaminophen 325 MG / Hydrocodone Bitartrate 10 MG Or al Tablet [[place] 10/325] 2014-09-14 18:02:00 No Note s: Do not exceed 4gm/day of acetaminophen. (Same as: [place] 325/10) [facility] zolpidem 2014-09-14 18:01:00 No Notes: (John e As: Ambien) [facility] Diphenhydramine 2014-09-14 16:44:00 No Notes: (Same as: Benadryl) [facility] Diazepam 2014-09-14 14:00:00 No Notes: ([facility] e as: Valium) [facility] Celexa 2014-09-14 14:00:00 No Notes: (Same As: CeleXA) [facility] Saline Flush 0.9% 2014-09-14 07:59:00 No Notes: preservative free. [facility] Sodium Chloride 0.154 MEQ/ML Injectable Solution 2014-09-14 07:5 9:00 No 1,000 mL, Rate: 60 ml/hr, In fuse over: 16.7 hr, Route: IV, Dosing Weight 60 kg, Total Volume: 1,000, Start date: 09/14/14 2:59:00, Stop date: 10/14/14 2:58:00 [facility] Ondansetron 2014-09-14 07:59:00 No Notes: (Same as: Rukhsana) MEDICATION WASTE Product Size: 4 mg Product Wasted: ___ mg [facility] Morphine 2014-09-14 07:59:00 No Not es: (Same as:MORPhine Sulfate) [facility] Dilaudid 2014-09-14 07:34:00 No 1 mg, 1 mL, Route: IVP, Drug form: INJ, Q6H, Dosing Weight 60, kg, PRN Pain Score 6-10, Priority: STAT, Start date: 09/14/14 2:34:00, Duration: 30 day, Stop date: 10/14/14 2:33:00 [facility] Morphine 2014-09-14 07:34:00 No Not es: (Same as:MORPhine Sulfate) [facility] Ambien 2014-09-14 07:29:00 No Notes: (Same As: Ambien) [facility] Phenergan 2014-09-14 07:26:00 No Notes: Do not give IV push. (Same as: Phenergan) [facility] Zofran 2014-09-14 07:26:00 No Notes: (Same as: Zofran) MEDICATION WASTE Product Size: 4 mg Product Wasted: ___ mg [facility] pantoprazole 2014-09-14 07:25:00 No Notes: For IV push reconstitute with 10 ml 0.9% sodium chloride and push over 2 minutes. (Same as: Protonix) [facility] normal saline 0.9% IV 1,000 mL 2014-09-14 07:25:00 No 1,000 mL, Rate: 75 ml/hr, Infuse over: 13.3 hr, Route: IV, Dosing Weight 60 kg, Total Volume: 1,000, Start date: 09/14/14 2:25:00, Duration: 30 day, Stop date: 10/14/14 2:24:00 [facility] Benadryl 2014-09-14 07:12:00 No 12.5 mg, Route: IVP, ONCE, Dosing Weight 60, kg, Priority: STAT, Start date: 09/14/14 2:12:00, Stop date: 09/14/14 2:12:00 [facility] Reglan 2014-09-14 06:31:00 No 10 mg, Route: IVP, Drug form: INJ, ONCE, Dosing Weight 60, kg, Priority: STAT, Start date: 09/14/14 1:31:00, Stop date: 09/14/14 1:31:00 [facility] Acetaminophen 325 MG / Hydrocodone Bitartrate 10 MG Or al Tablet [[place] 10/325] 2014-09-14 06:30:00 No 1-2 tab, PO, Q4-6H, PRN Pain, X 5 day, # 15 tab, 0 Refill(s) [facility] Promethazine Hydrochloride 25 MG Rectal Suppository [Phenerg an] 2014-09-14 06:30:00 No 25 mg = 1 supp, NM, Q6H, PRN Nausea & Vomiting, X 3 day, # 9 supp, 0 Refill(s) [facility] Promethazine Hydrochloride 25 MG Oral Tablet [Phenergan] 2014-09-14 06:29:00 No 25 mg = 1 tab, PO, Q 6H, PRN Nausea, X 4 day, # 15 tab, 0 Refill(s) [facility] Acetaminophen 325 MG / Hydrocodone Bitartrate 10 MG Or al Tablet [[place] 10/325] 2014-09-14 05:58:00 No 1 ta b, Route: PO, Drug Form: TAB, Dosing Weight 60, kg, ONCE, STAT, Start date: 09/14/14 0:58:00, Stop date: 09/14/14 0:58:00 [facility] Phenergan 2014-09-14 04:59:00 No Notes: Do not give IV push. (Same as: Phenergan) [facility] Dilaudid 2014-09-14 04:58:00 No 2 mg, 2 mL, Route: IVP, Drug form: INJ, ONCE, Dosing Weight 60, kg, Priority: STAT, Start date: 09/13/14 23:58:00, Stop date: 09/13/14 23:58:00 [facility] 2014-09-14 03:17:00 No 12.5 mg, Route: IVPB, ONCE, Dosing Weight 60, kg, Priority: STAT, Start date: 09/13/14 22:17:00, Stop date: 09/13/14 22:17:00 [facility] Sodium Chloride 0.154 MEQ/ML Injectable Solution 2014-09-14 03:1 7:00 No 1,000 mL, Infuse Over: 1 hr, Route: IV, ONCE, Priority: STAT, Dosing Weight 60 kg, Start date: 09/13/14 22:17:00, Duration: 1 doses or times, Stop date: 09/13/14 22:17:00 [facility] Saline Flush 0.9% 2014-09-14 03:17:00 No Notes: preservative free. [facility] Morphine 2014-09-14 03:17:00 No 6 mg, Route: IVP, ONCE, Dosing Weight 60, kg, Priority: STAT, Start date: 09/13/14 22:17:00, Stop date: 09/13/14 22:17:00 [facility] Acetaminophen 325 MG / Hydrocodone Bitartrate 5 MG Oral Tabl et [[place] 5/325] 2014-02-09 16:01:00 Yes 1-2 tab, PO, Q4-6H, Pain, # 12 tab, 0 Refill(s) [facility] Acetaminophen 325 MG / Hydrocodone Bitartrate 5 MG Oral Tabl et [[place] 5/325] 2014-02-09 15:08:00 No 1 tab, Route: PO, Dosing Weight 66.364, kg, ONCE, Start date: 02/09/14 10:08:00, Stop date: 02/09/14 10:08:00 [facility] Miralax 2013 14:00:00 No Notes: Dissolve in 8 oz of water or juice. (Same as: Miralax) [facility] Promethazine 2013-12-16 12:17:00 No Notes: Do not give IV push. (Same as: Phenergan) [facility] Depacon 2013-12-13 13:35:00 No Notes: Dilute in at least 50ml D5W or NS. Infusion rate = 20 mg/min (Same As: Depacon) [facility] Dextrose 50% Syringe 2013-12-12 17:48:00 No 25 gm, 50 mL, Route: IV, Drug Form: INJ, Dosing Weight 63.636, kg, PRN, PRN Blood Glucose Results, Start date: 12/12/13 12:48:00, Duration: 30 day, Stop date: 01/11/14 12:47:00 [facility] gabapentin 2013-12-12 14:30:00 No Notes: (S bhumi as: Neurontin) [facility] Protonix 2013-12-11 21:30:00 No Notes: Tablet should not be chewed or crushed. (Same as: Protonix) [facility] Dilaudid 2013-12-11 16:22:00 No 0.8 mg, 0.8 mL, Route: IV, Drug form: INJ, Q6H, Dosing Weight 63.636, kg, PRN Severe Pain, Start date: 12/11/13 11:22:00, Stop date: 01/10/14 11:21:00 [facility] Ketorolac 2013-12-11 16:21:00 No 4 days [facility] Phenergan 2013-12-11 15:09:00 No Notes: Do not give IV push. (Same as: Phenergan) [facility] Dexamethasone 2013-12-11 15:08:00 No 10 mg, 2.5 mL, Route: IVPB, Drug form: INJ, ONCE, Dosing Weight 63.636, kg, Start date: 12/11/13 10:08:00, Stop date: 12/11/13 10:08:00 [facility] t Miralax 2013-12-11 14:00:00 No Notes: Dissolve in 8 oz of water or juice. (Same as: Miralax) [facility] Multiple Vitamins with Minerals oral tablet 2013-12-11 14:00:00 No Notes: (Same as:Thera-M, Theragran-M) Give with food. [facility] Celexa 2013-12-11 14:00:00 No Notes: (Same As: CeleXA) [facility] Diazepam 2013-12-11 11:00:00 No Notes: (John e as: Valium) [facility] zolpidem 2013-12-11 10:46:00 No 10 mg, Route: PO, Drug form: TAB, Bedtime, Dosing Weight 63.636, kg, PRN as needed for sleep, Start date: 12/11/13 5:46:00, Duration: 30 day, Stop date: 01/10/14 5:45:00 [facility] Hyoscyamine 2013-12-11 10:46:00 No Notes: (Same as: Levsin) Take 30 min before meal [facility] Chlordiazepoxide Hydrochloride 25 MG Oral Capsule 2013-12-11 10:45:00 No 25 mg, 1 cap, Route: PO, Drug form: CAP, QID, Dosing Weight 63.636, kg, PRN as needed for anxiety, Start date: 12/11/13 5:45:00, Duration: 30 day, Stop date: 01/10/14 5:44:00 [facility] Ambien 2013-12-11 04:00:00 No Notes: (Same As: Ambien) [facility] Protonix 2013-12-10 21:30:00 No Notes: For IV push reconstitute with 10 ml 0.9% sodium chloride and push over 2 minutes. (Same as: Protonix) [facility] Promethazine 2013-12-10 16:34:00 No Notes: Do not give IV push. (Same as: Phenergan) [facility] Dilaudid 2013-12-10 16:33:00 No 0.5 mg, 0.5 mL, Route: IV, Drug form: INJ, Q3H, Dosing Weight 64.545, kg, PRN Pain, Start date: 12/10/13 11:33:00, Duration: 30 day, Stop date: 01/09/14 11:32:00 [facility] D5W 1/2NS + KCL 20mEq/L 1000ml (Premix) 1,000 mL 2013-12-10 16:2 9:00 No Notes: PREMIX IV - Do Not Alter [facility] Saline Flush 0.9% 2013-12-10 16:29:00 No Notes: Same as: BD Posiflush Sterile [facility] Docusate 2013-12-10 16:29:00 No Notes: (Same as: Colace) (Do Not Crush) [facility] Acetaminophen 2013-12-10 16:29:00 No Notes: Do not exceed 4 gm/day. (Same as: Tylenol) [facility] Haldol 2013-12-07 05:47:00 No Notes: (Same as: Haldol) [facility] Lorazepam 2013-12-07 05:46:00 No Notes: (Sa me as: Ativan) [facility] Valproic Acid 100 MG/ML Injectable Solution 2013-12-07 04:44:00 No Notes: Dilute in at least 50ml D5W or NS. Infusion rate = 20 mg/min (Same As: Depacon) [facility] Metoclopramide 2013-12-07 04:44:00 No Notes : (Same as: Reglan) [facility] Diphenhydramine 2013-12-07 04:44:00 No Notes: (Same as: Benadryl) [facility] Ketorolac 2013-12-07 04:43:00 No 4 days [facility] Sodium Chloride 0.154 MEQ/ML Injectable Solution 2013-12-07 04:4 3:00 No 1,000 mL, 1,000 ml/hr, Infus e Over: 1 hr, Route: IV, 1,000, Drug form: INJ, ONCE, Priority: STAT, Dosing Weight 64.545 kg, Start date: 12/06/13 23:43:00, Duration: 1 doses or times, Stop date: 12/06/13 23:43:00 [facility] pantoprazole 2013-09-24 14:00:00 No Notes: Tablet should not be chewed or crushed. (Same as: Protonix) [facility] promethazine 25 mg rectal suppository 2013-09-24 12:15:28 Y es 25 mg = 1 supp, NM, Q4H, Nausea & Vomiting, # 10 supp, 0 Refill(s) [facility] Acetaminophen 325 MG / Hydrocodone Bitartrate 10 MG Or al Tablet [[place] 10/325] 2013-09-24 12:14:56 Yes 1 ta b, PO, Q4H, for pain, # 50 tab, 0 Refill(s) [facility] Zantac 300 2013-09-24 02:00:00 No 300 mg, Route: PO, Drug form: TAB, Bedtime, Dosing Weight 65.455, kg, Start date: 09/23/13 21:00:00, Duration: 30 day, Stop date: 10/22/13 21:00:00 Kristen theast Pepcid 2013-09-24 02:00:00 No Notes: (Same as: Pepcid) [facility] Ativan 2013-09-24 01:42:00 No Notes: (Same as: Ativan) [facility] Phenergan 2013-09-23 22:34:00 No Notes: (Sa me as: Phenergan) [facility] Acetaminophen 325 MG / Hydrocodone Bitartrate 5 MG Oral Tabl et [[place] 5/325] 2013-09-23 11:43:00 No Notes: (Same as: [place] 325/5) Do not exceed 4gm/day of acetaminophen. [facility] magnesium citrate 2013-09-21 22:59:00 No Notes: (Same as: Citrate of Magnesia) [facility] pantoprazole 2013-09-21 12:30:00 No Notes: Tablet should not be chewed or crushed. (Same as: Protonix) [facility] Ativan 2013-09-21 11:18:00 No Notes: (Same as: Ativan) [facility] Dextrose 50% Syringe 2013-09-20 18:48:00 No 25 gm, 50 mL, Route: IV, Drug Form: INJ, Dosing Weight 65.455, kg, PRN, PRN Blood Glucose Results, Start date: 09/20/13 13:48:00, Duration: 30 day, Stop date: 10/20/13 13:47:00, blood sugar <50 [facility] Phenergan 2013-09-20 02:43:00 No Notes: Do not give IV push. (Same as: Phenergan) [facility] Miralax 2013-09-19 22:05:00 No Notes: Dissolve in 8 oz of water or juice. (Same as: Miralax) [facility] Phenergan 2013-09-19 22:05:00 No Notes: ([facility] as: Phenergan) [facility] Protonix 2013-09-19 14:00:00 No Notes: For IV push reconstitute with 10 ml 0.9% sodium chloride and push over 2 minutes. (Same as: Protonix) [facility] Celexa 2013-09-19 14:00:00 No Notes: (Same As: CeleXA) [facility] Phenergan 2013-09-19 10:53:00 No Notes: Do not give IV push. (Same as: Phenergan) [facility] Phenergan 2013-09-19 02:15:00 No Notes: Do not give IV push. (Same as: Phenergan) [facility] Chlordiazepoxide Hydrochloride 25 MG Oral Capsule 2013-09-19 02:00:00 No 25 mg, 1 cap, Route: PO, Drug form: CAP, QID, Dosing Weight 65.455, kg, Start date: 09/18/13 21:00:00, Duration: 30 day, Stop date: 10/18/13 17:00:00 [facility] Ambien 2013-09-19 02:00:00 No Notes: (Same As: Ambien) [facility] Hydroxyzine 2013-09-19 01:57:00 No Notes: ( Same as: Vistaril) [facility] Temazepam 2013-09-18 21:46:00 No Notes: ([facility] As: Restoril) [facility] Dilaudid 2013-09-18 21:45:00 No 1 mg, 1 mL, Route: IV, Drug form: INJ, Q3H, Dosing Weight 69.545, kg, PRN Pain Score 7-10, Start date: 09/18/13 16:45:00, Duration: 30 day, Stop date: 10/18/13 16:44:00 [facility] Acetaminophen 2013-09-18 21:39:00 No Notes: Do not exceed 4 gm/day. (Same as: Tylenol) [facility] Docusate 2013-09-18 21:39:00 No Notes: (Same as: Colace) (Do Not Crush) [facility] Saline Flush 0.9% 2013-09-18 21:39:00 No Notes: (Same as: BD Posiflush) [facility] D5W 1/2NS + KCL 20mEq/L 1000ml (Premix) 1,000 mL 2013-09-18 21:3 9:00 No Notes: PREMIX IV - Do Not Alter [facility] Acetaminophen 325 MG / Hydrocodone Bitartrate 10 MG Or al Tablet [[place] 10/325] 2013-09-13 08:03:00 Yes 1 ta b, PO, Q4H, for pain, # 50 tab, 0 Refill(s) [facility] Acetaminophen 65 MG/ML / Oxycodone Hydrochloride 1 MG/ML Ora l Solution 2013-09-13 08:02:00 Yes 5 ml, PO, Q4H, for pain, # 480 mL, 0 Refill(s) [facility] Acetaminophen 65 MG/ML / Oxycodone Hydrochloride 1 MG/ML Ora l Solution 2013-09-13 07:57:00 Yes 5 ml, PO, Q4H, for pain, # 480 mL, 0 Refill(s) [facility] Ciprofloxacin 500 MG Oral Tablet [Cipro] 2013-09-13 07:57:00 Yes 500 mg = 1 tab, PO, Q12H, # 28 tab, 0 Refill(s) [facility] Acetaminophen 325 MG / Hydrocodone Bitartrate 5 MG Oral Tabl et [[place] 5/325] 2013-09-13 07:44:00 No 1 tab, Route: PO, Dosing Weight 69.545, kg, ONCE, Start date: 09/13/13 2:44:00, Stop date: 09/13/13 2:44:00 [facility] Acetaminophen 33.3 MG/ML / Hydrocodone Bitartrate 0.5 MG/ML Oral Solution 2013-09-13 06:12:00 Yes 15 ml, PO, Q4H, for pain, # 60 mL, 0 Refill(s) [facility] Ondansetron 8 MG Disintegrating Tablet [Zofran] 2013-09-13 06:11 :00 Yes Special Instructions: Dissolve tab under tongue [facility] promethazine 50 mg rectal suppository 2013-09-13 06:11:00 Y es 50 mg = 1 supp, NM, Q6H, Nausea & Vomiting, # 12 supp, 0 Refill(s) [facility] Ciprofloxacin 2013-09-13 05:15:00 No Notes: Do not refrigerate [facility] Sodium Chloride 0.154 MEQ/ML Injectable Solution 2013-09-13 04:3 4:00 No 1,000 mL, 1,000 ml/hr, Infus e Over: 1 hr, Route: IV, 1,000, Drug form: INJ, ONCE, Priority: STAT, Dosing Weight 69.545 kg, Start date: 09/12/13 23:34:00, Duration: 1 doses or times, Stop date: 09/12/13 23:34:00 [facility] d50 syringe 2013-09-13 04:34:00 No Special Instructions: 25 ml = 12.5 gm [facility] Dilaudid 2013-09-13 04:00:00 No 0.5 mg, 0.5 mL, Route: IV, Drug form: INJ, Q3H, Dosing Weight 69.545, kg, Start date: 09/12/13 23:00:00, Duration: 30 day, Stop date: 10/12/13 20:00:00 [facility] Promethazine 2013-09-13 01:51:00 No Notes: Do not give IV push. (Same as: Phenergan) [facility] Ondansetron 2013-09-13 01:51:00 No Notes: ( Same as: Zofran) [facility] Sodium Chloride 0.154 MEQ/ML Injectable Solution 2013-09-13 01:5 0:00 No 1,000 mL, 1,000 ml/hr, Infus e Over: 1 hr, Route: IV, 1,000, Drug form: INJ, ONCE, Priority: STAT, Dosing Weight 69.545 kg, Start date: 09/12/13 20:50:00, Duration: 1 doses or times, Stop date: 09/12/13 20:50:00 [facility] Famotidine 2013-09-13 01:43:00 No Notes: (Same as: Pepcid) Can be dilute in 5-10cc NS IVP: Slow IV push over at least 2 minutes. [facility] Acetaminophen 325 MG / Hydrocodone Bitartrate 10 MG Oral Tab let 2013-09-10 10:39:00 Yes 1 tab, PO, Q4H, Pain Sc ore 4-6, # 10 tab, 0 Refill(s) [facility] promethazine 25 mg rectal suppository 2013-09-10 10:39:00 Y es 25 mg = 1 supp, NM, Q4H, Nausea & Vomiting, # 10 supp, 0 Refill(s) [facility] Ondansetron 0.8 MG/ML Oral Solution [Zofran] 2013-09-09 21:33:00 No Notes: (Same as: Zofran ODT) [facility] t Phenergan 2013-09-09 21:33:00 No Notes: ([facility] as: Phenergan) [facility] Thiamine 2013-09-09 14:00:00 No Notes: ([facility] As: Vitamin B1) [facility] Metoclopramide 10 MG Oral Tablet [Reglan] 2013-09-08 16:30:00 No Notes: (Same as: Reglan) Take 30 min before meals [facility] promethazine 12.5 mg rectal suppository 2013-09-07 12:55:00 Yes 12.5 mg = 1 supp, NM, Q4H, Nausea & Vomiting, # 12 can, 0 Refill(s) [facility] Phenergan 2013-09-07 12:51:00 No Notes: ([facility] as: Phenergan) [facility] Protonix 2013-09-06 14:00:00 No Notes: Tablet should not be chewed or crushed. (Same as: Protonix) [facility] Actigall 2013-09-06 02:00:00 No Notes: ([facility] e As: Actigall) [facility] hydrocortisone acetate 25 MG Rectal Suppository [Anusol HC] 2013-09-05 22:00:00 No Notes: (Same as: Anusol-HC, H emorrhoidal HC) [facility] Metronidazole 500 MG Oral Tablet 2013-09-05 19:00:00 No Notes: (Same as: Flagyl) Take with food/ avoid alcohol [facility] Sodium Chloride 0.154 MEQ/ML Injectable Solution 2013-09-05 17:0 9:00 No 1,000 mL, Rate: 25 ml/hr, In fuse over: 40 hr, Route: IV, Dosing Weight 67.273 kg, Total Volume: 1,000, Start date: 09/05/13 12:09:00, Duration: 1 day, Stop date: 09/06/13 12:08:00 [facility] D5NS 1,000 mL 2013-09-05 01:05:00 No 1,000 mL, Rate: 125 ml/hr, Infuse over: 8 hr, Route: IV, Dosing Weight 67.273 kg, Total Volume: 1,000, Start date: 09/04/13 20:05:00, Duration: 30 day, Stop date: 10/04/13 20:04:00 [facility] Golytely 2013-09-04 14:11:00 No Notes: (polyethylene glycol electrolyte solution 4 Liter bottle) (Same as: [place]gan, [place]) [facility] Miralax 2013-09-03 17:48:00 No Notes: Dissolve in 8 oz of water or juice. (Same as: Miralax) [facility] Docusate Sodium 100 MG Oral Capsule 2013-09-03 17:48:00 No 100 mg, 1 cap, Route: PO, Drug form: CAP, BID, Dosing Weight 67.273, kg, PRN Constipation, Start date: 09/03/13 12:48:00, Duration: 30 day, Stop date: 10/03/13 12:47:00 [facility] Protonix 2013-09-03 14:00:00 No Notes: For IV push reconstitute with 10 ml 0.9% sodium chloride and push over 2 minutes. (Same as: Protonix) [facility] Hydroxyzine 2013-09-03 02:00:00 No Notes: (Same as: Atarax) Avoid alcohol. [facility] Ambien 2013-09-03 02:00:00 No Notes: (Same As: Ambien) [facility] Benadryl 2013-09-02 22:42:00 No Notes: (John e as: Benadryl) [facility] Hyoscyamine 2013-09-02 22:41:00 No Notes: (Same as: Levsin) Take 30 min before meal [facility] Dilaudid 2013-09-02 22:35:00 No 1 mg, 1 mL, Route: IV, Drug form: INJ, Q4H, Dosing Weight 67.273, kg, PRN Pain Score 7-10, Start date: 09/02/13 17:35:00, Duration: 30 day, Stop date: 10/02/13 17:34:00 [facility] Diazepam 2013-09-02 17:00:00 No Notes: (John e as: Valium) [facility] Potassium Chloride 20 MEQ Extended Release Tablet 2013-09-02 14:00:00 No Notes: (Same as: K-D ur 20) "Do Not Crush" With food and full glass of water [facility] Ascorbic Acid / Beta Carotene / cuprous oxide / Lutein / sodium selenate / Vitamin E / Zinc Oxide 2013-09-02 14:00:00 No Notes: (Same as:Thera- M, Theragran-M) Give with food. [facility] Celexa 2013-09-02 14:00:00 No Notes: (Same As: CeleXA) [facility] promethazine 25 mg oral tablet 2013-09-02 13:45:00 No 25 mg = 1 tab, PO, Q6H, Nausea & Vomiting, # 15 tab, 0 Refill(s) [facility] zolpidem 10 mg oral tablet 2013-09-02 13:45:00 Yes 10 mg = 1 tab, PO, Bedtime, for sleep, 0 Refill(s) [facility] Miralax 2013-09-02 13:45:00 Yes 17 gm, PO, D aily, 0 Refill(s) [facility] hyoscyamine 0.125 mg sublingual tablet 2013-09-02 13:45:00 Yes 0.125 mg = 1 tab, SL, Q6H, GI Upset, 0 Refill(s) [facility] Phenergan 2013-09-02 13:32:00 No Notes: Do not give IV push. (Same as: Phenergan) [facility] Ondansetron 2013-09-02 13:21:00 No Notes: ( Same as: Zofran) [facility] Morphine 2013-09-02 13:21:00 No Not es: (Same as:MORPhine Sulfate) [facility] Docusate 2013-09-02 13:21:00 No Notes: (Same as: Colace) (Do Not Crush) [facility] Saline Flush 0.9% 2013-09-02 13:21:00 No Notes: (Same as: BD Posiflush) [facility] Sodium Chloride 0.0769 MEQ/ML Injectable Solution 2013-09-02 13:21:00 No 1,000 mL, Rate: 125 ml/hr, Infuse over: 8 hr, Route: IV, Dosing Weight 67.273 kg, Total Volume: 1,000, Start date: 09/02/13 8:21:00, Duration: 30 day, Stop date: 10/02/13 8:20:00 [facility] Acetaminophen 2013-09-02 13:21:00 No Notes: Max acetaminophen = 4000mg/day (4 gm/day). (Same as: Tylenol) [facility] Acetaminophen 325 MG / Hydrocodone Bitartrate 10 MG Oral Tab let 2013-09-02 13:21:00 No Notes: Do not exceed 4gm/day of acetaminophen. (Same as: [place] 325/10) [facility] Acetaminophen 325 MG / Hydrocodone Bitartrate 5 MG Oral Tabl et 2013-09-02 13:21:00 No Notes: (Sa me as: [place] 325/5) Do not exceed 4gm/day of acetaminophen. [facility] Chlordiazepoxide Hydrochloride 25 MG Oral Capsule 2013-09-02 12:30:00 No 25 mg, 1 cap, Route: PO, Drug form: CAP, QID, Dosing Weight 67.273, kg, PRN as needed for anxiety, Start date: 09/02/13 7:30:00, Duration: 30 day, Stop date: 10/02/13 7:29:00 [facility] normal saline 0.9% IV 1,000 mL 2013-09-02 12:29:00 No 1,000 mL, Rate: 125 ml/hr, Infuse over: 8 hr, Route: IV, Dosing Weight 67.273 kg, Total Volume: 1,000, Start date: 09/02/13 7:29:00, Duration: 30 day, Stop date: 10/02/13 7:28:00 [facility] Zofran 2013-09-02 09:03:00 No 4 mg, Route: IVP, Drug form: INJ, ONCE, Dosing Weight 67.273, kg, Priority: STAT, Start date: 09/02/13 4:03:00, Stop date: 09/02/13 4:03:00 [facility] Promethazine Hydrochloride 25 MG Oral Tablet [Phenergan] 2013-09-02 08:42:00 No 25 mg = 1 tab, PO, Q4H, Nausea, # 15 tab, 0 Refill(s) [facility] Dilaudid 2013-09-02 07:49:00 No 1 mg, Route: IV, ONCE, Dosing Weight 67.273, kg, Start date: 09/02/13 2:49:00, Stop date: 09/02/13 2:49:00 [facility] Phenergan 2013-09-02 07:49:00 No 12.5 mg, Route: IVPB, ONCE, Dosing Weight 67.273, kg, Priority: STAT, Start date: 09/02/13 2:49:00, Stop date: 09/02/13 2:49:00 [facility] Hydromorphone 2013-09-02 05:51:00 No 1 mg, Route: IVP, ONCE, Dosing Weight 67.273, kg, Priority: STAT, Start date: 09/02/13 0:51:00, Stop date: 09/02/13 0:51:00 [facility] Phenergan 2013-09-02 04:58:00 No Notes: Do not give IV push. (Same as: Phenergan) [facility] Sodium Chloride 0.154 MEQ/ML Injectable Solution 2013-09-02 04:5 8:00 No 1,000 mL, 1000 ml/hr, Infuse Over: 1 hr, Route: IV, 1,000, Drug form: INJ, ONCE, Priority: STAT, Dosing Weight 67.273 kg, Start date: 09/01/13 23:58:00, Duration: 1 doses or times, Stop date: 09/01/13 23:58:00 [facility] Saline Flush 0.9% 2013-09-02 04:58:00 No Notes: (Same as: BD Posiflush) [facility] pantoprazole 40 mg oral enteric coated tablet 2013-09-01 11:54:0 0 Yes 40 mg = 1 tab, PO, Daily, # 30 tab, 0 Refill(s) [facility] promethazine 6.25 mg/5 mL oral syrup 2013-09-01 11:53:00 Ye s 18.75 mg = 15 mL, PO, QID, as needed for nausea/vomiting, # 500 mL, 0 Refill(s) [facility] Ondansetron 2013-09-01 11:29:00 No Notes: ( Same as: Zofran ODT) [facility] Acetaminophen 325 MG / Hydrocodone Bitartrate 10 MG Oral Tab let 2013-09-01 11:29:00 No Notes: Do not exceed 4gm/day of acetaminophen. (Same as: [place] 325/10) [facility] Solu-Medrol 2013-09-01 07:45:00 No Notes: (Same as:Solu-MEDROL, A-Methapred) [facility] Diphenhydramine 2013-09-01 07:45:00 No Notes: (Same as: Benadryl) [facility] Metoclopramide 2013-09-01 05:43:00 No Notes : (Same as: Reglan) [facility] Ondansetron 2013-09-01 05:43:00 No Notes: ( Same as: Zofran) [facility] Hydromorphone 2013-09-01 05:43:00 No 0.5 mg, 0.5 mL, Route: IVP, Drug form: INJ, ONCE, Dosing Weight 63.636, kg, Priority: STAT, Start date: 09/01/13 0:43:00, Stop date: 09/01/13 0:43:00 [facility] Sodium Chloride 0.154 MEQ/ML Injectable Solution 2013-09-01 05:4 3:00 No 1,000 mL, 1,000 ml/hr, Infus e Over: 1 hr, Route: IV, 1,000, Drug form: INJ, ONCE, Priority: STAT, Dosing Weight 63.636 kg, Start date: 09/01/13 0:43:00, Duration: 1 doses or times, Stop date: 09/01/13 0:43:00 [facility] albuterol 90 mcg/inh inhalation aerosol 2013-06-10 16:44:0 0 Yes Campos Terminella 2 puff, INHALATION, QID, wheezing, # 1 can, 0 Refill(s) [facility] DuoNeb inhalation solution 2013-06-10 16:44:00 Yes Campos Terminella 3 ml, INHALATION, QID, Wheezing, # 60 ea, 0 Refill(s) [facility] docusate sodium 100 mg oral capsule 2013-06-10 15:58:00 Yes Kaylee Jarvis Jim 100 mg = 1 cap, PO, Daily, as needed for constipation, # 100 cap, 3 Refill(s) [facility] polyethylene glycol 3350 oral powder for reconstitution 2013-06-10 15:58:00 Yes Kaylee Jarvis Jim 17 gm, PO, BID, # 527 gm, 1 Refill(s) [facility] predniSONE 2013-06-10 15:00:00 No Enayet Rahim 40 mg, 2 tab, Route: PO, Drug form: TAB, Daily, Dosing Weight 66.364, kg, Start date: 06/10/13 9:00:00, Duration: 30 day, Stop date: 07/09/13 9:00:00Take with food. [facility] Nebulizer 2013-06-10 12:32:00 Yes Enayet Rahim 1 ea, MISC, ONCALL, # 1 ea, 0 Refill(s) [facility] zolpidem 10 mg oral tablet 2013-06-10 12:32:00 Yes Enaye t Rahim 10 mg = 1 tab, PO, Bedtime, # 7 tab, 0 Refill(s) [facility] predniSONE 20 mg oral tablet 2013-06-10 12:32:00 Yes Jenny yet Rahim 40 mg = 2 tab, PO, Daily, # 10 tab, 0 Refill(s) [facility] levofloxacin 750 mg oral tablet 2013-06-10 12:32:00 Yes Enayet Rahim 750 mg = 1 tab, PO, Daily, # 5 tab, 0 Refill(s) [facility] Promethazine DM oral syrup 2013-06-10 12:32:00 Yes Enaye t Rahim 5 mL, PO, Q6H, for cough, # 30 mL, 0 Refill(s) [facility] Bentyl 2013-06-10 03:00:00 No Kaylee Jarvis Jim 10 mg, 1 cap, Route: PO, Drug form: CAP, QID, Dosing Weight 66.364, kg, Start date: 06/09/13 21:00:00, Duration: 30 day, Stop date: 07/09/13 17:00:00(Same as: Bentkatarzyna) [facility] Levaquin 2013-06-10 03:00:00 No Enayet Rahim 500 mg, 2 tab, Route: PO, Drug form: TAB, Daily, Dosing Weight 66.364, kg, Start date: 06/09/13 21:00:00, Duration: 30 day, Stop date: 07/08/13 21:00:00Do not give w/antacids, dairy pdt & minerals Take 1 hr before or 2 hr after dairy pdt (Same as:Levaquin) [facility] MiraLax 2013-06-09 15:00:00 No Kaylee Jarvis Jmi 17 gm, 1 pkt, Route: PO, Drug form: PWDR, BID, Dosing Weight 66.364, kg, Start date: 06/09/13 9:00:00, Duration: 30 day, Stop date: 07/08/13 17:00:00Dissolve in 8 oz of water or juice. (Same as: Miralax) [facility] st Colace 100 mg oral capsule 2013-06-09 03:00:00 No S shen Jarvis Jim 100 mg, 1 cap, Route: PO, Drug form: CAP , Bedtime, Dosing Weight 66.364, kg, Start date: 06/08/13 21:00:00, Duration: 30 day, Stop date: 07/07/13 21:00:00(Same as: Colace) (Do Not Crush) [facility] Dilaudid 2013-06-08 16:35:00 No Enayet Rahim 1 mg, 1 mL, Route: IV, Drug form: INJ, Q6H, Dosing Weight 66.364, kg, PRN Pain Score 6-10, Start date: 06/08/13 10:35:00, Duration: 30 day, Stop date: 07/08/13 10:34:00 [facility] hydromorphone 2013-06-08 06:54:00 No Enayet Rahim 2 mg, 2 mL, Route: IVP, Drug form: INJ, ONCE, Dosing Weight 66.364, kg, Priority: STAT, Start date: 06/08/13 0:54:00, Stop date: 06/08/13 0:54:00 [facility] Flonase 0.05 mg/inh nasal spray 2013-06-07 15:00:00 No Morgan Romo 2 inhalation, Route: Each Affected Nostril, Drug Form: SPRY, Dosing Weight 66.364, kg, Daily, Start date: 06/07/13 9:00:00, Duration: 30 day, Stop date: 07/06/13 9:00:00(Same as: Flonase) [facility] CeleXA 2013-06-06 15:00:00 No Campos Terminella 40 mg, 2 tab, Route: PO, Drug form: TAB, QAM, Dosing Weight 66.364, kg, Start date: 06/06/13 9:00:00, Duration: 30 day, Stop date: 07/05/13 9:00:00(Same As: CeleXA) [facility] Ambien 2013-06-06 06:35:00 No Enayet Rahim 10 mg, 1 tab, Route: PO, Drug form: TAB, ONCE, Start date: 06/06/13 0:35:00, Stop date: 06/06/13 0:35:00(Same As: Ambien) [facility] Fioricet oral tablet 2013-06-06 03:06:00 No Enayet Rahi m 1 tab, Route: PO, Drug Form: TAB, Dosing Weight 66.364, kg, Q4H, PRN Headache, Start date: 06/05/13 21:06:00, Duration: 30 day, Stop date: 07/05/13 21:05:00(actszxbxydhsx-cejgkbgoal-dkmxfuaa 325-50-40mg) Do not exceed 4 gm/day of acetaminophen. (Same as: Esgic, Fioricet) [facility] zolpidem 2013-06-06 03:00:00 No Enayet Rahim 10 mg, 1 tab, Route: PO, Drug form: TAB, Bedtime, Dosing Weight 66.364, kg, Start date: 06/05/13 21:00:00, Duration: 30 day, Stop date: 07/04/13 21:00:00(Same As: Ambien) [facility] hydrOXYzine 2013-06-06 03:00:00 No Campos Terminella 25 mg, 1 tab, Route: PO, Drug form: TAB, Bedtime, Dosing Weight 66.364, kg, Start date: 06/05/13 21:00:00, Duration: 30 day, Stop date: 07/04/13 21:00:00(Same as: Atarax) Avoid alcohol. [facility] Tamiflu 2013-06-06 03:00:00 No Campos Terminella 75 mg, 1 cap, Route: PO, Drug form: CAP, [id number], Dosing Weight 66.364, kg, Start date: 06/05/13 21:00:00, Duration: 10 doses or times, Stop date: 06/10/13 9:00:00Take with food. Same as: Tamiflu) [facility] chlordiazePOXIDE 25 mg oral capsule 2013-06-06 01:45:00 No Campos Terminella 25 mg, 1 cap, Route: PO, Drug form: CAP, QID, Dosing Weight 66.364, kg, PRN Anxiety, Start date: 06/05/13 19:45:00, Duration: 30 day, Stop date: 07/05/13 19:44:00 [facility] Solu-MEDROL 2013-06-06 00:00:00 No Enayet Rahim 20 mg, 0.5 mL, Route: IVP, Drug form: INJ, [id number], Dosing Weight 67.727, kg, Start date: 06/05/13 18:00:00, Stop date: 07/05/13 6:00:00(Same as:Solu-MEDROL, A-Methapred) [facility] albuterol 2013-06-05 22:04:00 No Enayet Rahim 1.25 mg, 3 mL, Route: NEB, Drug form: SOLN, PRN, PRN Respiratory Protocol, Start date: 06/05/13 16:04:00, Duration: 30 day, Stop date: 07/05/13 16:03:00SEE RT DOCUMENTATION (Same as: Proventil) [facility] levofloxacin 750 mg oral tablet 2013-06-05 20:55:00 No Enayet Rahim 750 mg = 1 tab, PO, Daily, # 10 tab, 0 Refill(s) [facility] predniSONE 5 mg oral tablet 2013-06-05 20:55:00 No 5 mg = 1 tab, PO, TID, # 21 tab, 0 Refill(s) [facility] chlordiazePOXIDE 25 mg oral capsule 2013-06-05 20:55:00 Yes Campos Terminella 25 mg = 1 cap, PO, QID, Anxiety, # 60 ca p, 0 Refill(s) [facility] Promethazine DM oral syrup 2013-06-05 20:55:00 No Enaye t Rahim 5 ml, PO, Q6H, for cough, # 120 ml, 0 Refill(s) [facility] acetaminophen 2013-06-05 20:49:00 No Enayet Rahim 650 mg, 2 tab, Route: PO, Drug form: TAB, Q4H, Dosing Weight 67.727, kg, PRN Pain 1-3/Temp > 100.4 F, Start date: 06/05/13 14:49:00, Duration: 30 day, Stop date: 07/05/13 14:48:00Do not exceed 4 gm/day. (Same as: Tylenol) [facility] D5W 1/2NS + KCL 20mEq/L 1000ml (Premix) 1000 mL 2013-06-05 20:49:00 No Enayet Rahim 1,000 mL, Rate: 100 ml/hr, Infuse over: 10 hr, Route: IV, Dosing Weight 67.727 kg, Total Volume: 1,000, Start date: 06/05/13 14:49:00, Duration: 30 day, Stop date: 07/05/13 14:48:00 [facility] docusate 2013-06-05 20:49:00 No Enayet Rahim 100 mg, 1 cap, Route: PO, Drug form: CAP, BID, Dosing Weight 67.727, kg, PRN as needed for constipation, Start date: 06/05/13 14:49:00, Duration: 30 day, Stop date: 07/05/13 14:48:00(Same as: Colace) (Do Not Crush) [facility] Saline Flush 0.9% 2013-06-05 20:49:00 No Enayet Rahim 5 ml, Route: IVP, Drug Form: INJ, Dosing Weight 67.727, kg, PRN, PRN Line Flush, Start date: 06/05/13 14:49:00, Duration: 30 day, Stop date: 07/05/13 14:48:00Same as: BD Posiflush Sterile [facility] Restoril 2013-06-05 18:03:00 No Enayet Rahim 30 mg, 2 cap, Route: PO, Drug form: CAP, Bedtime, Dosing Weight 67.727, kg, PRN Sleep, Start date: 06/05/13 12:03:00, Duration: 30 day, Stop date: 07/05/13 12:02:00(Same As: Restoril) [facility] normal saline 0.9% IV 1,000 mL 2013-06-05 18:02:00 No E nayet Rahim 1,000 mL, Rate: 125 ml/hr, Infuse over: 8 hr, Route: IV, Dosing Weight 67.727 kg, Total Volume: 1,000, Start date: 06/05/13 12:02:00, Duration: 30 day, Stop date: 07/05/13 12:01:00 [facility] Robitussin-AC oral syrup 2013-06-05 18:02:00 No Enayet Rahim 5 ml, Route: PO, Drug Form: LIQ, Dosing Weight 67.727, kg, Q4H, PRN Cough/Congestion, Start date: 06/05/13 12:02:00, Duration: 30 day, Stop date: 07/05/13 12:01:00(Same As: Robitussin AC) [facility] Levaquin 2013-06-05 18:00:00 No Enayet Rahim 500 mg, 100 mL, Route: IVPB, Drug form: INJ, [id number], Dosing Weight 67.727, kg, Start date: 06/05/13 12:00:00, Duration: 30 day, Stop date: 07/04/13 20:00:00(Same as:Levaquin) [facility] Xopenex 2013-06-05 17:57:00 No Enayet Rahim 0.63 mg, Route: NEB, PRN, Dosing Weight 67.727, kg, PRN Respiratory Protocol, Start date: 06/05/13 11:57:00, Duration: 30 day, Stop date: 07/05/13 11:56:00 [facility] prochlorperazine 10 mg oral tablet 2013-02-12 09:47:23 Yes Ama Trotter Rice 10 mg, 1 tab, PO , BID, PRN, 10 tab, Headache, Substitution Allowed, TAB [facility] NS (Bolus) IV 500 mL 2013-02-12 08:55:00 No Christion G regory Rice 500 mL, Rate: 500 ml/hr, Infuse over: 1 hr, Route: IV, Dosing Weight 67.727 kg, Total Volume: 500, Priority: STAT, Start date: 02/12/13 3:55:00, Duration: 1 doses or times, Stop date: 02/12/13 4:54:00, Bolus DoseBolus Dose [facility] Benadryl 2013-02-12 08:43:00 No Christion Sergo Rice 25 mg, Route: IVP, ONCE, Dosing Weight 67.727, kg, Priority: STAT, Start date: 02/12/13 3:43:00, Stop date: 02/12/13 3:43:00 [facility] Reglan 2013-02-12 08:43:00 No Christion Sergo Rice 10 mg, Route: IVP, Drug form: INJ, ONCE, Dosing Weight 67.727, kg, Priority: STAT, Start date: 02/12/13 3:43:00, Stop date: 02/12/13 3:43:00 [facility] Dilaudid 2013-02-12 05:43:00 No Christion Sergo Rice 1 mg, Route: IV, ONCE, Dosing Weight 67.727, kg, Start date: 02/12/13 0:43:00, Stop date: 02/12/13 0:43:00 [facility] GI cocktail 2013-02-12 05:40:00 No Christion Sergo Ri ce 30 mL, Route: PO, Dosing Weight 67.727, kg, ONCE, STAT, Start date: 02/12/13 0:40:00, Stop date: 02/12/13 0:40:00 [facility] Dilaudid 2013-02-12 04:52:00 No Christion Sergo Rice 1 mg, Route: IV, ONCE, Dosing Weight 67.727, kg, Start date: 02/11/13 23:52:00, Stop date: 02/11/13 23:52:00 [facility] morphine Sulfate 2013-02-12 03:12:00 No Christion Master ry Rice 4 mg, Route: IVP, Drug form: INJ, ONCE, Dosing Weight 67.727, kg, Priority: STAT, Start date: 02/11/13 22:12:00, Stop date: 02/11/13 22:12:00 [facility] ondansetron 2013-02-12 03:12:00 No Ama Trotter Ri ce 4 mg, Route: IVP, Drug form: INJ, ONCE, Dosing Weight 67.727, kg, Priority: STAT, Start date: 02/11/13 22:12:00, Stop date: 02/11/13 22:12:00 [facility] Lactated Ringers Injection IV 1,000 mL 2013-02-12 03:12:00 No Ama Trotter Rice 1,000 mL, Rate: 1,000 ml/hr, Infuse over: 1 hr, Route: IV, Dosing Weight 67.727 kg, Total Volume: 1,000, Bolus infusion, Priority: STAT, Start date: 02/11/13 22:12:00, Duration: 1 doses or times, Stop date: 02/11/13 23:11:00 [facility] Cipro 750 mg oral tablet 2012-09-28 07:08:07 Yes John Vern musa Navas 750 mg, 1 tab, PO, Q12H, 6 tab, Substitution Allowed [facility] Dilaudid 2012-09-28 06:27:00 No John Ciaran Navas 1 mg, 0.5 mL, Route: IV, Drug form: INJ, ONCE, Dosing Weight 64.545, kg, Start date: 09/28/12 1:27:00, Stop date: 09/28/12 1:27:00 [facility] Dilaudid 2012-09-28 05:16:00 No John Ciaran Navas 1 mg, 0.5 mL, Route: IV, Drug form: INJ, ONCE, Dosing Weight 64.545, kg, Start date: 09/28/12 0:16:00, Stop date: 09/28/12 0:16:00 [facility] NS (Bolus) IV 1,000 mL 2012-09-28 05:15:00 No John Brynn r Navas 1,000 mL, Rate: 1,000 ml/hr, Infuse over: 1 hr, Route: IV, Dosing Weight 64.545 kg, Total Volume: 1,000, Priority: STAT, Start date: 09/28/12 0:15:00, Duration: 1 doses or times, Stop date: 09/28/12 1:14:00, Bolus DoseBolus Dose [facility] morphine Sulfate 2012-09-28 05:15:00 No John Ciaran Meht a 4 mg, Route: IVP, ONCE, Dosing Weight 64.545, kg, Start date: 09/28/12 0:15:00, Stop date: 09/28/12 0:15:00 [facility] Tylenol 2012-09-28 03:12:00 No John Ciaran Navas 975 mg, 3 tab, Route: PO, Drug form: TAB, ONCE, Dosing Weight 64.545, kg, Priority: STAT, Start date: 09/27/12 22:12:00, Stop date: 09/27/12 22:12:00 [facility] oral tablet 2012-09-28 02:39:16 Yes 1 tab, PO, Daily, Substitution Allowed, Maintenance [facility] magnesium sulfate 2012-09-28 02:35:00 No John Ciaran Aayush ta 2 gm, 50 mL, Route: IVPB, Drug form: INJ, ONCE, Dosing Weight 64.545, kg, Total dose = 2 gm, Start date: 09/27/12 21:35:00, Duration: 1 doses or times, Stop date: 09/27/12 21:35:[address] [facility] ter diazepam 2012-09-28 02:17:00 No John Ciaran Navas 10 mg, 1 tab, Route: PO, Drug form: TAB, ONCE, Dosing Weight 64.545, kg, Priority: STAT, Start date: 09/27/12 21:17:00, Stop date: 09/27/12 21:17:00 [facility] Celexa 2012-09-28 02:13:31 Yes 20 mg , PO, QAM, Substitution Allowed [facility] Atarax 25 mg oral tab 2012-09-28 02:13:24 Yes 25 mg, 1 tab, PO, Bedtime, Substitution Allowed [facility] Ambien 2012-09-28 02:12:48 No Substitution Allowed [facility] ondansetron 2 mg/mL injectable solution 2012-08-11 12:58:0 0 Yes Enayet Rahim 4 mg, 2 mL, IVP, Q6H, PRN, 10 mL, Nausea & Vomiting, Substitution Allowed, INJ [facility] acetaminophen-hydrocodone 325 mg-5 mg oral tablet 12:57:38 Yes Enayet Rahim 2 tab, PO, Q4H, PRN, 15 tab, Pain Score 4-6, Substitution Allowed, Maintenance, TAB [facility] docusate sodium 100 mg oral capsule 2012-08-10 14:00:00 No Tulio E Wendy 100 mg, 1 cap, R oute: PO, Drug form: CAP, BID, Dosing Weight 66.818, kg, Start date: 08/10/12 9:00:00, Duration: 30 day, Stop date: 09/08/12 17:00:00 [facility] Flomax 2012-08-10 13:30:00 No Vijay Ferguson Hinh 0.4 mg, 1 cap, Route: PO, Drug form: CAP, After Breakfast, Dosing Weight 66.818, kg, Start date: 08/10/12 8:30:00, Duration: 30 day, Stop date: 09/08/12 8:30:00 [facility] Lovenox 2012-08-10 11:00:00 No Tulio E Wendy 40 mg, 0.4 mL, Route: SUB-Q, Drug form: INJ, [id number], Dosing Weight 66.818, kg, Start date: 08/10/12 6:00:00, Duration: 30 day, Stop date: 09/08/12 6:00:00 [facility] METRONIDazole (SCIP) 2012-08-10 00:00:00 No Tulio E Wendy 500 mg, 100 mL, Route: IVPB, Drug form: INJ, [id number], Dosing Weight 66.818, kg, Start date: 08/09/12 19:00:00, Duration: 3 doses or times, Stop date: 08/10/12 11:00:00 [facility] Ofirmev 2012-08-09 23:15:00 No Darnell T Chandler 1,000 mg, Route: IV, Drug form: INJ, ONCE, Dosing Weight 66.818, kg, PRN Pain, for > or = 50 kg, Start date: 08/09/12 18:15:00 Lucy Cuellar 10/325 oral tablet 2012-08-09 23:15:00 No Darnell T Chandler 1 tab, Route: PO, Drug Form: TAB, Dosing Weight 66.818, kg, Q6H, PRN Pain, Start date: 08/09/12 18:15:00, Duration: 30 day, Stop date: 09/08/12 18:14:00 [facility] hydromorphone 2012-08-09 23:15:00 No Darnell T Chandler 0.5 mg, Route: IVP, Q5Min, Dosing Weight 66.818, kg, PRN Pain Score 4-6, Start date: 08/09/12 18:15:00, Duration: 5 doses or times, Stop date: Limited # of times [facility] fentanyl 2012-08-09 23:15:00 No Darnell T Chandler 25 microgram, Route: IVP, Q5Min, Dosing Weight 66.818, kg, PRN Pain Score 4-6, Start date: 08/09/12 18:15:00, Duration: 4 doses or times, Stop date: Limited # of times [facility] flumazenil 2012-08-09 23:15:00 No Darnell T Chandler 0.2 mg, Route: IVP, PRN, Dosing Weight 66.818, kg, PRN Benzodiazepine Reversal, Initial dose, Start date: 08/09/12 18:15:00, Duration: 30 day, Stop date: 09/08/12 18:14:00 [facility] naloxone 2012-08-09 23:15:00 No Darnell T Chandler 0.04 mg, Route: IVP, Q2MIN, Dosing Weight 66.818, kg, PRN Narcotic Reversal, Start date: 08/09/12 18:15:00, Duration: 8 doses or times, Stop date: Limited # of times [facility] ondansetron 2012-08-09 23:15:00 No Darnell T Chandler 4 mg, Route: IVP, ONCE, Dosing Weight 66.818, kg, PRN Nausea & Vomiting, Start date: 08/09/12 18:15:00 [facility] ciprofloxacin (SCIP) 2012-08-09 23:00:00 No Tulio E Wendy 400 mg, 200 mL, Route: IVPB, Drug form: INJ, [id number], Dosing Weight 66.818, kg, Start date: 08/09/12 18:00:00, Duration: 2 doses or times, Stop date: 08/10/12 6:00:00 [facility] Lactated Ringers Injection IV 1,000 mL 2012-08-09 22:24:00 No Tulio E Wendy 1,000 mL, Rate: 125 ml/hr, Infuse over: 8 hr, Route: IV, kg, Total Volume: 1,000, Start date: 08/09/12 17:24:00, Duration: 30 day, Stop date: 09/08/12 17:23:00 [facility] acetaminophen-hydrocodone 325 mg-5 mg oral tablet 22:24:00 No Tulio E Wendy 2 tab, Route: PO, Drug Form: TAB, Dosing Weight 66.818, kg, Q4H, PRN Pain Score 4-6, Start date: 08/09/12 17:24:00, Duration: 30 day, Stop date: 09/08/12 17:23:00 [facility] ondansetron 2012-08-09 22:24:00 No Tulio E Wendy 4 mg, 2 mL, Route: IVP, Drug form: INJ, Q6H, Dosing Weight 66.818, kg, PRN Nausea & Vomiting, Start date: 08/09/12 17:24:00, Duration: 30 day, Stop date: 09/08/12 17:23:00 [facility] diphenhydrAMINE 2012-08-09 22:24:00 No Tulio Vazquez Maldonado da 25 mg, 1 tab, Route: PO, Drug form: TAB, Bedtime, Dosing Weight 66.818, kg, PRN Insomnia, Start date: 08/09/12 17:24:00, Duration: 30 day, Stop date: 09/08/12 17:23:00 [facility] Lactated Ringers IV 1,000 mL 2012-08-09 20:19:00 No Kobe hood Vu Frias 1,000 mL, Rate: 25 ml/hr, Infuse over: 40 hr, Route: IV, kg, Total Volume: 1,000, Start date: 08/09/12 15:19:00, Duration: 30 day, Stop date: 09/08/12 15:18:00 [facility] Rocephin + Sodium Chloride 0.9% IV 100 mL 2012-08-09 17:00 :00 No Tulio George Wendy 2 gm, Route: IVP B, ONCALL, Start date: 08/09/12 12:00:00, Duration: 2 day, Stop date: 08/11/12 11:59:00 [facility] [place] 2012-08-08 20:57:00 No Tulio E Wendy 133 ml, Route: NM, Drug Form: SUMAN, Dosing Weight 66.818, kg, ONCE, Start date: 08/08/12 15:57:00, Stop date: 08/08/12 15:57:00 [facility] 2012-08-08 12:05:00 No Enayet Rahim 133 ml, Route: NM, Drug Form: SUMAN, Dosing Weight 66.818, kg, ONCE, Start date: 08/08/12 7:05:00, Stop date: 08/08/12 7:05:00 [facility] Ambien 2012-08-08 12:04:00 No Enayet Rahim 10 mg, 1 tab, Route: PO, Drug form: TAB, Bedtime, Dosing Weight 66.818, kg, PRN as needed for sleep, Start date: 08/08/12 7:04:00, Duration: 30 day, Stop date: 09/07/12 7:03:00 [facility] temazepam 2012-08-08 02:00:00 No Enayet Rahim 15 mg, 1 cap, Route: PO, Drug form: CAP, Bedtime, Dosing Weight 66.818, kg, Start date: 08/07/12 21:00:00, Duration: 30 day, Stop date: 09/05/12 21:00:00 [facility] Protonix 2012-08-07 21:30:00 No Enayet Rahim 40 mg, 1 tab, Route: PO, Drug form: ECTAB, Before Dinner, Dosing Weight 66.364, kg, Start date: 08/07/12 16:30:00, Duration: 30 day, Stop date: 09/05/12 16:30:00 [facility] Pristiq 50mg po daily*Pts own med* 2012-08-07 14:00:00 N o Enayet Rahim Pristiq 50mg po daily*Pts own med*, Kira tiq 50mg po daily*Pts own med*, Drug form: MISC, Route: PO, Daily, 08/07/12 9:00:00, Duration: 30 day, Stop date: 09/05/12 9:00:00 [facility] Pristiq 50 mg oral tablet, extended release 2012-08-07 14: 00:00 No Enayet Rahim 1 tab, Route: PO , Drug form: ERTAB, Daily, Dosing Weight 66.364, kg, Start date: 08/07/12 9:00:00, Duration: 30 day, Stop date: 09/05/12 9:00:00 [facility] diazepam 2012-08-07 14:00:00 No Enayet Rahim 10 mg, 1 tab, Route: PO, Drug form: TAB, QID, Dosing Weight 66.818, kg, Start date: 08/07/12 9:00:00, Duration: 30 day, Stop date: 09/05/12 21:00:00 [facility] Milk of Magnesia 2012-08-07 12:13:00 No Enayet Rahim 60 ml, Route: PO, Drug Form: SUSP, Dosing Weight 66.818, kg, ONCE, PRN as needed for constipation, Start date: 08/07/12 7:13:00 [facility] Fleet Enema 2012-08-07 12:12:00 No Enayet Rahim 133 ml, Route: NM, Drug Form: SUMAN, Dosing Weight 66.818, kg, ONCE, Start date: 08/07/12 7:12:00, Stop date: 08/07/12 7:12:00 [facility] Benadryl 2012-08-07 05:19:00 No Enayet Rahim 25 mg, 0.5 mL, Route: IV, Drug form: INJ, Q4H, Dosing Weight 66.818, kg, PRN as needed for itching, Start date: 08/07/12 0:19:00, Duration: 30 day, Stop date: 09/06/12 0:18:00 [facility] hydromorphone 2012-08-06 22:42:00 No Enayet Rahim 1.5 mg, 1.5 mL, Route: IV, Drug form: SOLN, Q3H, Dosing Weight 66.818, kg, PRN Pain Score 6-10, Start date: 08/06/12 17:42:00, Duration: 30 day, Stop date: 09/05/12 17:41:00 [facility] Protonix 2012-08-06 21:30:00 No Enayet Rahim 40 mg, Route: IVP, Drug form: INJ, Before Dinner, Dosing Weight 66.364, kg, Start date: 08/06/12 16:30:00, Duration: 30 day, Stop date: 09/04/12 16:30:00 [facility] Pristiq 50 mg oral tablet, extended release 2012-08-06 21: 01:47 Yes Enayet Rahim 50 mg, 1 tab, PO, Daily, 30 tab, Substit ution Allowed, ERTAB [facility] Levaquin 2012-08-06 20:00:00 No Enayet Rahim 500 mg, 100 mL, Route: IVPB, Drug form: INJ, [id number], Dosing Weight 66.364, kg, Start date: 08/06/12 15:00:00, Duration: 30 day, Stop date: 09/04/12 15:00:00 [facility] enoxaparin 2012-08-06 20:00:00 No Enayet Rahim 40 mg, 0.4 mL, Route: SUB-Q, Drug form: INJ, [id number], Dosing Weight 66.364, kg, Start date: 08/06/12 15:00:00, Duration: 30 day, Stop date: 09/04/12 15:00:00 [facility] Restoril 2012-08-06 19:15:00 No Enayet Rahim 30 mg, 2 cap, Route: PO, Drug form: CAP, Bedtime, Dosing Weight 66.364, kg, PRN Sleep, Start date: 08/06/12 14:15:00, Duration: 30 day, Stop date: 09/05/12 14:14:00 [facility] Phenergan + Sodium Chloride 0.9% IV 50 mL 2012-08-06 19:14 :00 No Enayet Rahim 12.5 mg, 0.5 mL, Route: IVPB, Q4H, Dosing Weight 66.364, kg, PRN Nausea & Vomiting, Start date: 08/06/12 14:14:00, Duration: 30 day, Stop date: 09/05/12 14:13:00 [facility] Dilaudid 2012-08-06 19:13:00 No Enayet Rahim 1 mg, 1 mL, Route: IV, Drug form: SOLN, Q3H, Dosing Weight 66.364, kg, PRN Pain, Start date: 08/06/12 14:13:00, Duration: 30 day, Stop date: 09/05/12 14:12:00 [facility] D5LR 1,000 mL 2012-08-06 19:08:00 No Enayet Rahim 1,000 mL, Rate: 100 ml/hr, Infuse over: 10 hr, Route: IV, kg, Total Volume: 1,000, Start date: 08/06/12 14:08:00, Duration: 30 day, Stop date: 09/05/12 14:07:00 [facility] Bentyl 2012-07-19 20:23:00 No Enayet Rahim 10 mg, 1 cap, Route: PO, Drug form: CAP, Q6H, Dosing Weight 66.364, kg, PRN For Pain, Start date: 07/19/12 14:23:00, Duration: 30 day, Stop date: 08/18/12 14:22:00 [facility] Fioricet 2012-07-19 13:23:00 No Enayet Rahim 1 tab, Route: PO, Drug Form: TAB, Dosing Weight 66.364, kg, Q4H, PRN Headache, Start date: 07/19/12 7:23:00, Duration: 30 day, Stop date: 08/18/12 7:22:00 [facility] zolpidem 2012-07-19 03:00:00 No Enayet Rahim 20 mg, 2 tab, Route: PO, Drug form: TAB, Bedtime, Dosing Weight 66.364, kg, Start date: 07/18/12 21:00:00, Duration: 30 day, Stop date: 08/16/12 21:00:00 [facility] citalopram 2012-07-19 03:00:00 No Enayet Rahim 10 mg, 1 tab, Route: PO, Drug form: TAB, Bedtime, Dosing Weight 66.364, kg, Start date: 07/18/12 21:00:00, Duration: 30 day, Stop date: 08/16/12 21:00:00 [facility] influenza virus vaccine, inactivated 2012-07-18 19:30:00 No SYSTEM SYSTEM 0.5 ml, Route: IM, Drug Form : INJ, Start date: 07/18/12 13:30:00, Stop date: 07/18/12 13:30:00 [facility], [facility] Phenergan + Sodium Chloride 0.9% IV 50 mL 2012-07-18 15:49 :00 No Enayet Rahim 12.5 mg, 0.5 mL, Route: IVPB, ONCE, Dosing Weight 66.364, kg, Start date: 07/18/12 9:49:00, Stop date: 07/18/12 9:49:00 [facility] Valium 2012-07-18 15:00:00 No Enayet Rahim 10 mg, 2 tab, Route: PO, Drug form: TAB, QID, Start date: 07/18/12 9:00:00, Duration: 30 day, Stop date: 08/16/12 21:00:00 [facility] diazepam 2012-07-18 15:00:00 No Enayet Rahim 10 mg, Route: PO, Drug form: TAB, QID, Dosing Weight 66.364, kg, Start date: 07/18/12 9:00:00, Duration: 30 day, Stop date: 08/16/12 21:00:00 [facility] influenza virus vaccine, inactivated 2012-07-18 15:00:00 No SYSTEM SYSTEM 0.5 ml, Route: IM, Drug Form : INJ, Daily, Start date: 07/18/12 9:00:00, Duration: 1 doses or times, Stop date: 07/18/12 9:00:00 [facility] Flomax 2012-07-18 14:30:00 No Enayet Rahim 0.4 mg, 1 cap, Route: PO, Drug form: CAP, After Breakfast, Dosing Weight 66.364, kg, Start date: 07/18/12 8:30:00, Duration: 30 day, Stop date: 08/16/12 8:30:00 [facility] D5W 1/2NS + KCL 20mEq/L 1000ml (Premix) 1,000 mL 12:37:00 No Enayet Rahim 1,000 mL, Rate: 150 ml/hr, Infuse over: 6.7 hr, Route: IV, kg, Total Volume: 1,000, Start date: 07/18/12 6:37:00, Duration: 30 day, Stop date: 08/17/12 6:36:00 [facility] diazepam 2012-07-18 12:10:00 No Enayet Rahim 10 mg, 2 tab, Route: PO, Drug form: TAB, ONCE, Dosing Weight 66.364, kg, PRN Seizure, Start date: 07/18/12 6:10:00 [facility] diazepam 2012-07-18 11:26:00 No Enayet Rahim 10 mg, 2 tab, Route: PO, Drug form: TAB, QID, Dosing Weight 66.364, kg, PRN, Start date: 07/18/12 5:26:00, Duration: 30 day, Stop date: 08/17/12 5:25:00, QID [facility] Dilaudid 2012-07-18 06:29:00 No Enayet Rahim 1.5 mg, 1.5 mL, Route: IV, Drug form: SOLN, Q4H, Dosing Weight 66.364, kg, PRN Pain, Start date: 07/18/12 0:29:00, Stop date: 08/17/12 0:28:00 [facility] morphine Sulfate 2012-07-18 02:23:00 No Enayet Rahim 2 mg, 1 mL, Route: IVP, Drug form: INJ, Q4H, Dosing Weight 66.364, kg, PRN Pain Score 4-6, Start date: 07/17/12 20:23:00, Duration: 30 day, Stop date: 08/16/12 20:22:00 [facility] Saline Flush 0.9% 2012-07-18 02:23:00 No Enayet Rahim 5 ml, Route: IVP, Drug Form: INJ, Dosing Weight 66.364, kg, PRN, PRN Line Flush, Start date: 07/17/12 20:23:00, Duration: 30 day, Stop date: 08/16/12 21:22:00 [facility] citalopram 10 mg oral tablet 2012-07-18 01:38:45 Yes Jenny yet Rahim 10 mg, 1 tab, PO, Bedtime, 30 tab, Substitution Allowed, TAB [facility] Flomax 0.4 mg oral capsule 2012-07-18 01:38:09 Yes Enaye t Rahim 0.4 mg, 1 cap, PO, After Breakfast, 30 cap, Substitution Allowed, CAP [facility] Bactrim DS oral tablet 2012-07-18 01:37:42 Yes 1 tab, PO, BID, 6 tab, Substitution Allowed, Maintenance [facility] Benadryl 2012-07-18 00:05:00 No Antonio Deni Shine 12.5 mg, Route: IVP, ONCE, Dosing Weight 66.364, kg, Priority: STAT, Start date: 07/17/12 18:05:00, Stop date: 07/17/12 18:05:00 [facility] 2012-07-17 23:47:00 No Asem Souman 4 mg, Route: IVP, Drug form: INJ, ONCE, Dosing Weight 66.364, kg, PRN Nausea, Priority: STAT, Start date: 07/17/12 17:47:00 [facility] morphine Sulfate 2012-07-17 23:47:00 No Asem Souman 4 mg, Route: IVP, ONCE, Dosing Weight 66.364, kg, Start date: 07/17/12 17:47:00, Stop date: 07/17/12 17:47:00 [facility] Saline Flush 0.9% 2012-07-17 21:00:00 No Asem Souman 5 ml, Route: IVP, Drug Form: INJ, Dosing Weight 66.364, kg, PRN, PRN Line Flush, Start date: 07/17/12 15:00:00, Duration: 30 day, Stop date: 08/16/12 15:59:00 [facility] LORAzepam 2012-07-17 21:00:00 No Asem Souman 1 mg, 0.5 mL, Route: IVP, Drug form: INJ, ONCE, Dosing Weight 66.364, kg, Priority: STAT, Start date: 07/17/12 15:00:00, Stop date: 07/17/12 15:00:00 [facility] Ativan 2012-07-16 08:47:00 No Sergo Kutsen 1 mg, Route: IVP, ONCE, Dosing Weight 66.364, kg, Priority: STAT, Start date: 07/16/12 2:47:00, Stop date: 07/16/12 2:47:00 [facility] pantoprazole 2012-07-16 05:31:00 No Sergo Kutsen 40 mg, Route: IVP, ONCE, Dosing Weight 66.364, kg, For IV push reconstitute with 10 ml 0.9% sodium chloride and push over at least 3 minutes, Priority: STAT, Start date: 07/15/12 23:31:00, Stop date: 07/15/12 23:31:00 [facility] Sodium Chloride 0.9% (Bolus) IV 500 mL 2012-07-16 05:31:00 No Sergo Kutsen 500 mL, Rate: 1, 000 ml/hr, Infuse over: 30 minutes, Route: IV, kg, Total Volume: 500, Priority: STAT, Start date: 07/15/12 23:31:00, Duration: 1 doses or times, Stop date: 07/16/12 0:00:00 [facility] Saline Flush 0.9% 2012-07-16 05:31:00 No Sergo Kutsen 5 mL, Route: IVP, Drug Form: INJ, Dosing Weight 66.364, kg, PRN, PRN Line Flush, Start date: 07/15/12 23:31:00, Duration: 24 hr, Stop date: 07/16/12 23:30:00 [facility] ondansetron 2012-07-16 05:31:00 No Sergo Kutsen 4 mg, Route: IVP, ONCE, Dosing Weight 66.364, kg, Priority: STAT, Start date: 07/15/12 23:31:00, Stop date: 07/15/12 23:31:00 [facility] hydromorphone 2012-07-16 05:31:00 No Sergo Kutsen 1 mg, Route: IVP, ONCE, Dosing Weight 66.364, kg, Priority: STAT, Start date: 07/15/12 23:31:00, Stop date: 07/15/12 23:31:00 [facility] lev[facility] mg/100 mL intravenous solution 2012-07-11 13:20:04 Yes Enayet Rahim 500 mg, 100 mL, IVPB, [id number], 7 mL, Substitution Allowed, INJ [facility] [place] 5/325 oral tablet 2012-07-11 13:19:45 Yes Enayet R ahim 1 tab, PO, Q4H, PRN, 12 tab, for pain, Substitution Allowed, Maintenance, TAB [facility] [place] 10/325 oral tablet 2012-07-11 13:18:00 No Enayet Rahim 1 tab, Route: PO, Drug Form: TAB, Dosing Weight 66.818, kg, Q6H, PRN Pain, Start date: 07/11/12 7:18:00, Duration: 30 day, Stop date: 08/10/12 7:17:00 [facility] Protonix 2012-07-10 22:30:00 No Enayet Rahim 40 mg, 1 tab, Route: PO, Drug form: ECTAB, Before Dinner, Dosing Weight 59.091, kg, Start date: 07/10/12 16:30:00, Duration: 30 day, Stop date: 08/08/12 16:30:00 [facility] amitriptyline 2012-07-10 03:00:00 No Enayet Rahim 50 mg, 1 tab, Route: PO, Drug form: TAB, Bedtime, Dosing Weight 66.818, kg, Start date: 07/09/12 21:00:00, Duration: 30 day, Stop date: 08/07/12 21:00:00 [facility] Ambien 2012-07-09 23:41:00 No Enayet Rahim 10 mg, 1 tab, Route: PO, Drug form: TAB, Bedtime, Dosing Weight 66.818, kg, PRN Insomnia, Start date: 07/09/12 17:41:00, Duration: 30 day, Stop date: 08/08/12 17:40:00 [facility] Protonix 2012-07-09 22:30:00 No Enayet Rahim 40 mg, Route: IVP, Drug form: INJ, Before Dinner, Dosing Weight 59.091, kg, Start date: 07/09/12 16:30:00, Duration: 30 day, Stop date: 08/07/12 16:30:00 [facility] diazepam 2012-07-09 20:57:00 No Enayet Rahim 10 mg, 2 tab, Route: PO, Drug form: TAB, Q6H, Dosing Weight 66.818, kg, Start date: 07/09/12 14:57:00, Stop date: 08/08/12 10:00:00 [facility]ush enoxaparin 2012-07-09 18:00:00 No Enayet Rahim 40 mg, 0.4 mL, Route: SUB-Q, Drug form: INJ, [id number], Dosing Weight 59.091, kg, Start date: 07/09/12 12:00:00, Duration: 30 day, Stop date: 08/07/12 13:00:00 [facility] Levaquin 2012-07-09 18:00:00 No Enayet Rahim 500 mg, 100 mL, Route: IVPB, Drug form: INJ, [id number], Dosing Weight 59.091, kg, Start date: 07/09/12 12:00:00, Duration: 30 day, Stop date: 08/07/12 13:00:00 [facility] Phenergan + Sodium Chloride 0.9% IV 50 mL 2012-07-09 17:12 :00 No Enayet Rahim 12.5 mg, 0.5 mL, Route: IVPB, Q4H, Dosing Weight 59.091, kg, PRN Nausea & Vomiting, Start date: 07/09/12 11:12:00, Stop date: 08/08/12 11:11:00 [facility] Dilaudid 2012-07-09 17:12:00 No Enayet Rahim 1 mg, 1 mL, Route: IV, Drug form: SOLN, Q3H, Dosing Weight 59.091, kg, PRN Pain, Start date: 07/09/12 11:12:00, Duration: 30 day, Stop date: 08/08/12 11:11:00 [facility] acetaminophen 2012-07-09 17:08:00 No Enayet Rahim 650 mg, 2 tab, Route: PO, Drug form: TAB, Q4H, Dosing Weight 59.091, kg, PRN Pain/Fever, Start date: 07/09/12 11:08:00, Duration: 30 day, Stop date: 08/08/12 11:07:00 [facility] NS + KCL 20mEq/L 1000ml (Premix) 1,000 mL 2012-07-09 17:08 :00 No Enayet Rahim 1,000 mL, Rate: 100 ml/hr, Infuse over: 10 hr, Route: IV, kg, Total Volume: 1,000, Start date: 07/09/12 11:08:00, Duration: 30 day, Stop date: 08/08/12 11:07:00 [facility] Saline Flush 0.9% 2012-07-09 17:08:00 No Enayet Rahim 5 ml, Route: IVP, Drug Form: INJ, Dosing Weight 59.091, kg, PRN, PRN Line Flush, Start date: 07/09/12 11:08:00, Duration: 30 day, Stop date: 08/08/12 12:07:00 [facility] temazepam 2012-07-09 17:08:00 No Enayet Rahim 15 mg, 1 cap, Route: PO, Drug form: CAP, Bedtime, Dosing Weight 59.091, kg, PRN Insomnia, Start date: 07/09/12 11:08:00, Duration: 30 day, Stop date: 08/08/12 11:07:00 [facility] docusate 2012-07-09 17:08:00 No Enayet Rahim 100 mg, 1 cap, Route: PO, Drug form: CAP, BID, Dosing Weight 59.091, kg, PRN Constipation, Start date: 07/09/12 11:08:00, Duration: 30 day, Stop date: 08/08/12 11:07:00 [facility] [place] 5/325 oral tablet 2012-07-08 10:25:33 Yes Enayet R ahim 1 tab, PO, Q4H, PRN, 12 tab, for pain, Substitution Allowed, Maintenance, TAB [facility] Sodium Chloride 0.9% (Bolus) IV 2012-07-08 08:00:00 No Asem Souman 500 mL, Route: IV, Dosing Weight 59.091, kg, ONCE, Bolus Dose - infuse over 1 hr, STAT, Start date: 07/08/12 2:00:00, Stop date: 07/08/12 2:00:00 [facility] Zofran 2012-07-08 08:00:00 No Asem Souman 4 mg, Route: IVP, Drug form: INJ, ONCE, Dosing Weight 59.091, kg, PRN Nausea, Priority: STAT, Start date: 07/08/12 2:00:00 [facility] morphine Sulfate 2012-07-08 07:59:00 No Asem Souman 4 mg, Route: IV, ONCE, Dosing Weight 59.091, kg, Start date: 07/08/12 1:59:00, Stop date: 07/08/12 1:59:00 [facility] Ultram 50 mg oral tablet 2012-07-07 08:16:34 Yes Antonio Gravesehan 50 mg, 1 tab, PO, Q4H, PRN, 12 tab, pain, Substitution Allowed [facility] Benadryl 2012-07-07 07:11:00 No Antonio Hope 25 mg, Route: PO, Drug form: CAP, ONCE, Dosing Weight 66.364, kg, Priority: STAT, Start date: 07/07/12 1:11:00, Stop date: 07/07/12 1:11:00 [facility] ondansetron 2012-07-07 06:05:00 No Antonio Hope 4 mg, 2 mL, Route: IVP, Drug form: INJ, ONCE, Dosing Weight 66.364, kg, Priority: STAT, Start date: 07/07/12 0:05:00, Stop date: 07/07/12 0:05:00 [facility] Sodium Chloride 0.9% (Bolus) IV 2012-07-07 06:05:00 No Antonio Hope 500 mL, 1000 ml/hr, Route: IV, Drug Form: INJ, Dosing Weight 66.364, kg, ONCE, Bolus at 1,000 ml/hr, STAT, Start date: 07/07/12 0:05:00, Stop date: 07/07/12 0:05:00 [facility] Saline Flush 0.9% 2012-07-07 06:05:00 No Antonio bailey 5 mL, Route: IVP, Drug Form: INJ, Dosing Weight 66.364, kg, PRN, PRN Line Flush, Start date: 07/07/12 0:05:00, Duration: 24 hr, Stop date: 07/08/12 0:04:00 [facility] morphine Sulfate 2012-07-07 06:05:00 No Antonio cole 4 mg, 2 mL, Route: IVP, Drug form: INJ, ONCE, Dosing Weight 66.364, kg, Priority: STAT, Start date: 07/07/12 0:05:00, Stop date: 07/07/12 0:05:00 [facility] droperidol 2012-05-31 15:20:00 No Antonio Hope 1.25 mg, Route: IVP, ONCE, Dosing Weight 65, kg, PRN Nausea & Vomiting, Start date: 05/31/12 9:20:00 [facility] Reglan 2012-05-31 14:31:00 No Antonio Hope 10 mg, Route: IVP, ONCE, Dosing Weight 65, kg, Priority: STAT, Start date: 05/31/12 8:31:00, Stop date: 05/31/12 8:31:00 [facility] Zofran 2012-05-31 13:57:00 No Antonio Hope 4 mg, 2 mL, Route: IVP, Drug form: INJ, ONCE, Dosing Weight 65, kg, Priority: STAT, Start date: 05/31/12 7:57:00, Stop date: 05/31/12 7:57:00 [facility] Sodium Chloride 0.9% (Bolus) IV 2012-05-31 13:57:00 No Antonio Hope 1,000 mL, 1000 ml/hr , Route: IV, Drug Form: INJ, Dosing Weight 65, kg, ONCE, Bolus Dose. Infuse over 1 hour., STAT, Start date: 05/31/12 7:57:00, Stop date: 05/31/12 7:57:00 [facility] Saline Flush 0.9% 2012-05-31 13:57:00 No Antonio bailey 5 ml, Route: IVP, Drug Form: INJ, Dosing Weight 65, kg, PRN, PRN Line Flush, Start date: 05/31/12 7:57:00, Duration: 30 day, Stop date: 06/30/12 7:56:00 [facility] Esgic 2012-04-08 23:54:00 No Temi Forrest 1 tab, Route: PO, Drug Form: TAB, ONCE, Start date: 04/08/12 17:54:00, Stop date: 04/08/12 17:54:00 [facility] Midrin 2012-04-08 23:31:00 No Temi Forrest 1 tab, Route: PO, Drug Form: CAP, Dosing Weight 61.818, kg, ONCE, Start date: 04/08/12 17:31:00, Stop date: 04/08/12 17:31:00 [facility] Rukhsana ODT 4 mg oral tablet, disintegrating 2012-04-08 23: 20:49 Yes Temi Forrest 4 mg, 1 tab, P O, BID, PRN, Dissolve tab under tongue, 10 tab, Nausea and Vomiting, Substitution AllowedDissolve tab under tongue [facility] Zofran 2012-04-08 23:04:00 No Temi Forrest 4 mg, Route: IVP, Drug form: INJ, ONCE, Dosing Weight 61.818, kg, Priority: STAT, Start date: 04/08/12 17:04:00, Stop date: 04/08/12 17:04:00 [facility] Motrin 2012-04-08 22:27:00 No Temi Forrest 800 mg, Route: PO, Drug form: TAB, ONCE, Dosing Weight 61.818, kg, Priority: STAT, Start date: 04/08/12 16:27:00, Stop date: 04/08/12 16:27:00 [facility] EpiPen Auto-Injector 0.3 mg injectable kit 2012-02-17 00:1 8:09 Yes Isolde Sasam Aguhar 0.3 mg, IM, ONCE, 1 kit, Substitution Allowed, SOLN [facility] epinephrine 1 mg/mL injectable solution 2012-02-16 21:21:0 0 No Isolde Sasam Aguhar 0.3 mg, Route: I M, ONCE, Dosing Weight 61.818, kg, Priority: STAT, Start date: 02/16/12 16:21:00, Stop date: 02/16/12 16:21:00 [facility] diphenhydrAMINE 2012-02-16 21:13:00 No Isolde Sasam Klarissa philomena 25 mg, Route: IVP, ONCE, Dosing Weight 61.818, kg, Priority: STAT, Start date: 02/16/12 16:13:00, Stop date: 02/16/12 16:13:00 [facility] LORAzepam 2012-02-16 21:13:00 No Isolde Sasam Aguhar 1 mg, Route: PO, ONCE, Dosing Weight 61.818, kg, Priority: STAT, Start date: 02/16/12 16:13:00, Stop date: 02/16/12 16:13:00 [facility] t epinephrine topical 1:1000 solution 2012-02-16 21:13:00 No Isolde Sasam Aguhar 0.3 mL, Route: I M, ONCE, Start date: 02/16/12 16:13:00, Stop date: 02/16/12 16:13:00 [facility] famotidine 2012-02-16 21:13:00 No Isolde Sasam Aguhar 20 mg, Route: IVP, ONCE, Dosing Weight 61.818, kg, Priority: STAT, Start date: 02/16/12 16:13:00, Stop date: 02/16/12 16:13:00 [facility] NS 500 mL 2012-02-16 21:12:00 No Isolde Sasam Aguhar 500 mL, Rate: 1,000 ml/hr, Infuse over: 0.5 hr, Route: IV, Dosing Weight 61.818 kg, Total Volume: 500, Start date: 02/16/12 16:12:00, Duration: 1 doses or times, Stop date: 02/16/12 16:41:00, Bolus DoseBolus Dose [facility] Toradol 30 mg/mL injectable solution 2012-01-25 05:13:00 No Asem Souman 30 mg, Route: IV, Drug form: INJ, ONCE, Dosing Weight 62.727, kg, Priority: STAT, Start date: 01/25/12 0:13:00, Stop date: 01/25/12 0:13:00 [facility] Sodium Chloride 0.9% (Bolus) IV 1000 mL 2012-01-25 02:58:00 No Asem Souman 1,000 mL, Rate: 1,00 0 ml/hr, Infuse over: 1 hr, Route: IV, kg, Total Volume: 1,000, Bolus Dose, Priority: STAT, Start date: 01/24/12 21:58:00, Duration: 1 doses or times, Stop date: 01/24/12 22:57:00 [facility] MiraLax 2012-01-02 22:00:00 No Kaylee Jarvis [place] neni 17 gm, 1 pkt, Route: PO, Drug form: PWDR, BID, kg, Start date: 01/02/12 17:00:00, Duration: 30 day, Stop date: 02/01/12 9:00:00 [facility] vitamin A & D topical 2012-01-02 02:00:00 No Enayet Rah im 1 appl, Route: TOP, QID, Drug form: OINT, Start date: 01/01/12 21:00:00, Duration: 30 day, Stop date: 01/31/12 17:00:00 [facility] GoLYTELY 2012-01-01 22:17:00 No Kaylee Jarvis Surap aneni 4,000 ml, Route: PO, Drug Form: PDR/REC, kg, ONCE, Start date: 01/01/12 17:17:00, Duration: 1 doses or times, Stop date: 01/01/12 17:17:00 [facility] Zofran 2012-01-01 19:09:00 No Kaylee Deen gabe 4 mg, 2 mL, Route: IVP, Drug form: INJ, Q6H, kg, PRN Nausea, Start date: 01/01/12 14:09:00, Duration: 30 day, Stop date: 01/31/12 14:08:00 [facility] Ativan 2012-01-01 16:02:00 No Enayet Rahim 1 mg, 0.5 mL, Route: IV, Drug form: INJ, Q4H, kg, PRN Anxiety, Priority: NOW, Start date: 01/01/12 11:02:00, Duration: 30 day, Stop date: 01/31/12 11:01:00 [facility] Pristiq 50 mg oral tablet, extended release 2012-01-01 14: 00:00 No Enayet Rahim 50 mg, 1 tab, Ro marita: PO, Drug form: ERTAB, Daily, Dosing Weight 66.818, kg, Start date: 01/01/12 9:00:00, Duration: 30 day, Stop date: 01/30/12 9:00:00 [facility] Protonix 2012-01-01 14:00:00 No Enayet Rahim [...] Duration: 30 day, Stop date: 01/30/12 9:00:00 [facility] Saline Flush 0.9% 2012-01-01 13:33:00 No Enayet Rahim 5 ml, Route: IVP, Drug Form: INJ, kg, PRN, PRN Line Flush, Start date: 01/01/12 8:33:00, Duration: 30 day, Stop date: 01/31/12 8:32:00 [facility] Sodium Chloride 0.45% IV 1,000 mL 2012-01-01 13:33:00 No Enayet Rahim 1,000 mL, Rate: 125 ml/hr, Infuse over: 8 hr, Route: IV, Dosing Weight 66.818 kg, Total Volume: 1,000, Start date: 01/01/12 8:33:00, Duration: 30 day, Stop date: 01/31/12 8:32:00 [facility] ondansetron 2012-01-01 13:33:00 No Enayet Rahim 4 mg, 2 mL, Route: IVP, Drug form: INJ, ONCE, kg, PRN Nausea & Vomiting, Start date: 01/01/12 8:33:00 [facility] Esgic 2012-01-01 05:36:00 No Enayet Rahim 1 tab, Route: PO, Drug Form: TAB, Q4H, PRN Other -See Comment, Start date: 01/01/12 0:36:00, Duration: 30 day, Stop date: 01/31/12 0:35:00 Anju dalton temazepam 2012-01-01 04:59:00 No Enayet Rahim 15 mg, 1 cap, Route: PO, Drug form: CAP, Bedtime, kg, Start date: 12/31/11 23:59:00, Duration: 30 day, Stop date: 01/30/12 21:00:00 Ashley t nitroglycerin 0.4 mg sublingual tablet 2012-01-01 04:44:00 No Enayet Rahim 0.4 mg, 1 tab, Route : SL, Drug form: TAB, Q5Min, PRN Chest Pain, Start date: 12/31/11 23:44:00, Duration: 30 day, Stop date: 01/30/12 23:43:00 [facility] atropine 2012-01-01 04:43:00 No Enayet Rahim 0.5 mg, 5 mL, Route: IVP, Drug form: INJ, PRN, PRN Bradycardia, Start date: 12/31/11 23:43:00, Duration: 30 day, Stop date: 01/30/12 23:42:00 [facility] trazodone 2012-01-01 02:29:00 No Enayet Rahim 150 mg, 3 tab, Route: PO, Drug form: TAB, Bedtime, kg, PRN Sleep, Start date: 12/31/11 21:29:00, Duration: 30 day, Stop date: 01/30/12 21:28:00 [facility] NS + KCL 20mEq/L 1000ml (Premix) 1,000 mL 2012-01-01 02:27 :00 No Enayet Rahim 1,000 mL, Rate: 125 ml/hr, Infuse over: 8 hr, Route: IV, Dosing Weight 66.818 kg, Total Volume: 1,000, Start date: 12/31/11 21:27:00, Duration: 30 day, Stop date: 01/30/12 21:26:00 [facility] trazodone 150 mg oral tablet 2012-01-01 02:14:28 Yes Jenny yet Rahim 150 mg, 1 tab, PO, Bedtime, PRN, 30 tab, insomnia (for waking up after taking other sleep meds), Substitution Allowed, TAB [facility] temazepam 15 mg oral capsule 2012-01-01 02:12:52 Yes Jenny yet Rahim 15 mg, 1 cap, PO, Bedtime, Substitution Allowed, with zolpidem for PTSDwith zolpidem for PTSD [facility] zolpidem 10 mg oral tablet 2012-01-01 02:12:02 Yes 20 mg, 2 tab, PO, Bedtime, Substitution Allowed, with temazepam for PTSDwith temazepam for PTSD [facility] Fioricet 2012-01-01 00:57:00 No Antonio Hope 1 tab, Route: PO, Drug Form: TAB, kg, ONCE, Start date: 12/31/11 19:57:00, Stop date: 12/31/11 19:57:00 [facility] Zoan 2012-01-01 00:27:00 No Antonio Hope 4 mg, Route: PO, ONCE, Dosing Weight 66.818, kg, Start date: 12/31/11 19:27:00, Stop date: 12/31/11 19:27:00 [facility] acetaminophen 2011-12-31 23:21:00 No Antonio ramos 975 mg, 3 tab, Route: PO, Drug form: TAB, ONCE, kg, Priority: STAT, Start date: 12/31/11 18:21:00, Stop date: 12/31/11 18:21:00 [facility] Sodium Chloride 0.9% (Bolus) IV 1,000 mL 2011-12-31 23:20: 00 No Antonio Hope 1,000 mL, Rate: 1,000 ml/hr, Infuse over: 1 hr, Route: IV, Dosing Weight 66.818 kg, Total Volume: 1,000, Bolus Dose, Priority: STAT, Start date: 12/31/11 18:20:00, Duration: 1 doses or times, Stop date: 12/31/11 19:19:00 [facility] Zoan 2011-12-31 05:45:00 No Sergo Kutsen 4 mg, Route: IVP, Drug form: INJ, ONCE, Dosing Weight 66.875, kg, Priority: STAT, Start date: 12/31/11 0:45:00, Stop date: 12/31/11 0:45:00 [facility] morphine Sulfate 2011-12-31 05:13:00 No Sergo Kutsen 2 mg, Route: IVP, ONCE, Dosing Weight 66.875, kg, Start date: 12/31/11 0:13:00, Stop date: 12/31/11 0:13:00 [facility] Saline Flush 0.9% 2011-12-31 04:07:00 No Sergo Kutsen 5 ml, Route: IVP, Drug Form: INJ, kg, PRN, PRN Line Flush, Start date: 12/30/11 23:07:00, Duration: 24 hr, Stop date: 12/31/11 23:06:00 [facility] NS (Bolus) IV 1,000 mL 2011-10-16 06:26:00 No Rajinder De La Rosa Biswas 1,000 mL, Rate: 1,000 ml/hr, Infuse over: 1 hr, Route: IV, Dosing Weight 63 kg, Total Volume: 1,000, Priority: STAT, Start date: 10/16/11 1:26:00, Duration: 1 doses or times, Stop date: 10/16/11 2:25:00, Bolus DoseBolus Dose [facility] Fioricet with Codeine oral capsule 2011-10-10 19:17:23 Y es Kaisen Fang 2 cap, PO, Q4H, PRN, 20 cap, for headach e, Substitution Allowed, Maintenance, CAP [facility] Pristiq 50 mg oral tablet, extended release 2011-10-10 14: 00:00 No Kaisen Fang 50 mg, 1 tab, Ro marita: PO, Drug form: ERTAB, Daily, Start date: 10/10/11 9:00:00, Duration: 30 day, Stop date: 11/08/11 9:00:00 [facility] Pristiq 50mg 2011-10-10 14:00:00 No Kaisen Fang Pristiq 50mg, (pt's own med), Drug form: MISC, Route: PO, Daily, 10/10/11 9:00:00, Duration: 30 day, Stop date: 11/08/11 9:00:00 Ashley looney Benadryl 2011-10-10 00:07:00 No Kaisen Fang 25 mg, 0.5 mL, Route: IV, Drug form: INJ, QID, PRN as needed for allergy symptoms, Start date: 10/09/11 19:07:00, Duration: 30 day, Stop date: 11/08/11 19:06:00 [facility] diazepam 2011-10-09 22:00:00 No Kaisen Fang 10 mg, 1 tab, Route: PO, Drug form: TAB, QID, Start date: 10/09/11 17:00:00, Duration: 30 day, Stop date: 11/08/11 13:00:00 [facility] Fioricet with Codeine 2011-10-09 21:33:00 No Kaisen Fan g Fioricet with Codeine, (pt's own med), Drug form: MISC, Route: PO, Q4H, PRN Pain, 10/09/11 16:33:00, Duration: 30 day, Stop date: 11/08/11 16:32:00 [facility] Fioricet 2011-10-09 21:29:00 No Kaisen Fang 1 tab, Route: PO, Drug Form: TAB, Q4H, PRN Headache, Start date: 10/09/11 16:29:00, Duration: 30 day, Stop date: 11/08/11 16:28:00 Ashley looney Fioricet with Codeine 2011-10-09 21:28:00 No Kaisen Fan g 1 cap, Route: PO, Drug Form: CAP, Q4H, PRN Headache, Start date: 10/09/11 16:28:00, Duration: 30 day, Stop date: 11/08/11 16:27:00 [facility] Ambien 2011-10-09 20:54:00 No Kaisen Fang 20 mg, 2 tab, Route: PO, Drug form: TAB, Bedtime, PRN Sleep, Start date: 10/09/11 15:54:00, Duration: 30 day, Stop date: 11/08/11 15:53:00 [facility] Motrin 2011-10-09 20:27:00 No Kaisen Fang 600 mg, 3 tab, Route: PO, Drug form: TAB, QID, PRN Pain, Start date: 10/09/11 15:27:00, Duration: 30 day, Stop date: 11/08/11 15:26:00 [facility] oral tablet 2011-10-09 20:26:00 No David en Fang 50 mg, 1 tab, Route: PO, Drug form: TAB, Bedtime, PRN Anxiety, Start date: 10/09/11 15:26:00, Duration: 30 day, Stop date: 11/08/11 15:25:00 [facility] Ambien CR 2011-10-09 20:26:00 No Kaisen Fang 25 mg, Route: PO, Drug form: ERTAB, Bedtime, PRN as needed for sleep, Start date: 10/09/11 15:26:00, Duration: 30 day, Stop date: 11/08/11 15:25:00 [facility] Tylenol 2011-10-09 17:08:00 No Kaisen Fang 650 mg, 2 tab, Route: PO, Drug form: TAB, Q6H, PRN Pain, Start date: 10/09/11 12:08:00, Duration: 30 day, Stop date: 11/08/11 12:07:00 Ashley t Saline Flush 0.9% 2011-10-09 14:00:00 No Kaisen Fang 5 ml, Route: IVP, Drug Form: INJ, Q12H, Start date: 10/09/11 9:00:00, Duration: 30 day, Stop date: 11/07/11 21:00:00 [facility] Benadryl 2011-10-09 10:50:00 No Kaisen Fang 50 mg, Route: IVP, ONCE, benadryl 50mg ivp x1 dose now, Start date: 10/09/11 5:50:00, Stop date: 10/09/11 5:50:00 [facility] Benadryl 2011-10-09 10:46:00 No Kaisen Fang 50 mg, 1 mL, Route: IVP, Drug form: INJ, ONCE, PRN Itching, Start date: 10/09/11 5:46:00 [facility] trazodone 50 mg oral tablet 2011-10-09 09:57:12 Yes David en Fang 50 mg, 1 tab, PO, PRN, as needed for insomnia if ambien does not work, Substitution Allowed, TAB [facility] Ambien CR 12.5 mg oral tablet, extended release 2011-10-09 09:56:22 Yes Kaisen Fang 25 mg, 2 tab, PO , Bedtime, PRN, for sleep, Substitution Allowed, ERTAB [facility] nitroglycerin 0.4 mg sublingual tablet 2011-10-09 09:49:00 No Kaisen Fang 0.4 mg, 1 tab, Route: SL, Dr ug form: TAB, Q5Min, PRN Chest Pain, Start date: 10/09/11 4:49:00, Duration: 30 day, Stop date: 11/08/11 4:48:00 [facility] atropine 2011-10-09 09:48:00 No Kaisen Fang 0.5 mg, 5 mL, Route: IVP, Drug form: INJ, PRN, PRN Bradycardia, Start date: 10/09/11 4:48:00, Duration: 30 day, Stop date: 11/08/11 4:47:00 [facility] Saline Flush 0.9% 2011-10-09 09:44:00 No Kaisen Fang 5 ml, Route: IVP, Drug Form: INJ, PRN, PRN Line Flush, Start date: 10/09/11 4:44:00, Duration: 30 day, Stop date: 11/08/11 4:43:00 [facility] acetaminophen-hydrocodone 325 mg-5 mg oral tablet 08:40:00 No Antonio Hope 1 tab, Rout e: PO, ONCE, STAT, Start date: 10/09/11 3:40:00, Stop date: 10/09/11 3:40:00 [facility] potassium chloride 2011-10-09 08:33:00 No Antonio Hope 40 mEq, Route: PO, Drug form: ERTAB, ONCE, Priority: STAT, Start date: 10/09/11 3:33:00, Stop date: 10/09/11 3:33:00 [facility] 1/2NS 1,000 mL 2011-10-09 07:53:00 No Antonio pradhan 1,000 mL, Rate: 125 ml/hr, Infuse over: 8 hr, Route: IV, Dosing Weight 62.727 kg, Total Volume: 1,000, Start date: 10/09/11 2:53:00, Duration: 30 day, Stop date: 11/08/11 2:52:00 [facility] influenza virus vaccine, inactivated 2011-03-31 15:00:00 No SYSTEM SYSTEM 0.5 ml, Route: IM, Drug Form : INJ, Start date: 03/31/11 9:00:00, Stop date: 03/31/11 9:00:00 [facility] raul, MICHAEL Dunn, [facility] Acetaminophen With Codeine (Tylenol With Codeine #4 Ta blet) 1 Each Tablet Acetaminophen With Codeine (Tylenol With Codeine #4 Tablet) 1 Each Tablet Yes 1 Every 6 Hours [facility] Citalopram Hydrobromide (Celexa) 40 Mg Tablet Citalopr am Hydrobromide (Celexa) 40 Mg Tablet Yes 40 Daily [facility] Diazepam 10 Mg Tablet Diazepam 10 Mg Tablet Yes 10 Every 8 Hours [facility] Dicyclomine Hcl (Bentyl) 10 Mg Capsule Dicyclomine Hcl (Bentyl) 10 Mg Capsule Yes 10 Twice A Day [facility] Gabapentin 300 Mg Capsule Gabapentin 300 Mg Capsule Yes 300 Three Times A Day [facility] Hydromorphone Hcl (Dilaudid) 2 Mg Tab Hydromorphone Hcl (Dilaudid) 2 Mg Tab Yes 100 [facility] Promethazine Hcl 50 Mg Tablet Promethazine Hcl 50 Mg Tablet Yes 50 Every 6 Hours [facility] Temazepam 15 Mg Capsule Temazepam 15 Mg Capsule Yes 20 Bedtime [facility] Tizanidine Hcl 4 Mg Capsule Tizanidine Hcl 4 Mg Capsule Yes 4 Three Times A Day [facility] Zolpidem Tartrate (Ambien) 10 Mg Tablet Zolpidem Tartrate (A mbien) 10 Mg Tablet Yes 12.[address] [facility] Albuterol Sulfate (Proair Hfa Inhaler*) 8.5 Gm Inh, 2 Inh Inhalation Albuterol Sulfate (Proair Hfa Inhaler*) 8.5 Gm Inh, 2 Inh Inhalation 2017-07-09 00:00:00 No 2 Daily [facility] Chlordiazepoxide/Clidinium Br (Chlordiaz epoxide-Clidinium Cap) 1 Each Capsule, 1 Each Oral Chlordiazepoxide/Clidinium Br (Chlordiaz epoxide-Clidinium Cap) 1 Each Capsule, 1 Each Oral 2017-07-09 00:00:00 No 1 Da osiris [facility] Chlordiazepoxide/Clidinium Br (Librax Capsule) 1 Each Capsule, 20 Mg Oral Chlordiazepoxide/Clidinium Br (Librax Capsule) 1 Each Capsule, 20 Mg Oral 2017-07-09 00:00:00 No 20 Bedtime [facility] Fentanyl 1 Each Patch.td72, 50 Mcg Topically Fentanyl 1 Each Patch.td72, 50 Mcg Topically 2017-07-09 00:00:00 No 50 Q72 Hrs [facility] Folic Acid 1 Mg Tablet, 3 Mg Oral Folic Acid 1 Mg Tablet, 3 Mg O ral 2017-07-09 00:00:00 No 3 Daily [facility] Mesalamine (Pentasa) 500 Mg Capcr, 1000 Mg Oral [place] (Pentasa) 500 Mg Capcr, 1000 Mg Oral 2017-07-09 00:00:00 No 1000 Thre e Times A Day [facility] Mirtazapine 15 Mg Tab, 15 Mg Oral Mirtazapine 15 Mg Tab, 15 Mg O ral 2017-07-09 00:00:00 No 15 Bedtime [facility] Ondansetron (Zofran Odt) 4 Mg Tab.rapdis, 8 Mg Oral On dansetron (Zofran Odt) 4 Mg Tab.rapdis, 8 Mg Oral 2017-07-09 00:00:00 No 8 Every 6 Hours as needed for Nausea And Vomiting [facility] Pro Plus , 1 Tab Oral Pro Plus , 1 Tab Oral 2017-07-09 00:00:00 No 1 Daily [facility] Rifaximin (Xifaxan) 550 Mg Tablet, 1 Tab Oral Rifaximi n (Xifaxan) 550 Mg Tablet, 1 Tab Oral 2017-07-09 00:00:00 No 1 Twice A Day [facility] Oseltamivir Phosphate (Tamiflu) 75 Mg Cap, 75 Mg Oral Oseltamivir Phosphate (Tamiflu) 75 Mg Cap, 75 Mg Oral 2016-09-03 00:00:00 No 75 Twice A Day [facility] Diphenoxylate Hcl/Atropine (Lomotil Tablet) 1 Each Tab let, 1 Tab Oral Diphenoxylate Hcl/Atropine (Lomotil Tablet) 1 Each Tablet, 1 Tab Oral 2016-08-10 00:00:00 No 1 Daily [facility] Pantoprazole Sodium (Protonix) 40 Mg Tablet.dr, 40 Mg Oral Pantoprazole Sodium (Protonix) 40 Mg Tablet.dr, 40 Mg Oral 2016-08-10 00:00:00 No 40 Daily [facility] Propranolol Hcl 80 Mg Tablet, 120 Mg Oral Propranolol Hcl 80 Mg Tablet, 120 Mg Oral 2016-08-10 00:00:00 No 120 Daily [facility] Cephalexin Monohydrate (Keflex) 500 Mg Capsule, 500 Mg Oral Cephalexin Monohydrate (Keflex) 500 Mg Capsule, 500 Mg Oral 2016-03-15 00:00:00 No 500 Four Times Daily [facility] Clarithromycin (Biaxin) 500 Mg Tablet, 500 Mg Oral Cla rithromycin (Biaxin) 500 Mg Tablet, 500 Mg Oral 2016-03-09 00:00:00 No 500 T wice A Day [facility] Metronidazole 500 Mg Tablet, 500 Mg Oral Metronidazole 500 Mg Tablet, 500 Mg Oral 2016-03-09 00:00:00 No 500 Three Times A Day [facility] Temazepam (Restoril) 30 Mg Capsule, 40 Mg Oral Temazep am (Restoril) 30 Mg Capsule, 40 Mg Oral 2016-03-09 00:00:00 No 40 Bedt anastacia [facility] Acetaminophen With Codeine (Tylenol With Codeine #3 Tablet) 1 Each Tablet, 300 Mg Oral Acetaminophen With Codeine (Tylenol With Codeine #3 Tablet) 1 Each Tablet, 300 Mg Oral 2015-12-01 00:00:00 No 300 Every 4 Hours for Pain [facility] Cyclobenzaprine Hcl (Flexeril) 5 Mg Tablet, 10 Mg Oral Cyclobenzaprine Hcl (Flexeril) 5 Mg Tablet, 10 Mg Oral 2015-12-01 00:00:00 No 1 0 [facility] Ibuprofen (Motrin) 200 Mg Tab, 400 Mg Oral Ibuprofen ( Motrin) 200 Mg Tab, 400 Mg Oral 2015-12-01 00:00:00 No 400 Every 6 Hours [facility] Vital Signs Vital Name Observation Time Observation Value Comments Source Respitory Rate 2016-08-05 10:45:00 [facility] Systolic (mm Hg) 2016-08-05 10:45:00 [facility] Diastolic (mm Hg) 2016-08-05 10:45:00 [facility] Heart Rate 2016-08-05 10:45:00 [facility] Temperature Oral (F) 2016-08-05 10:45:00 96.8 F [facility] Height 2016-08-05 07:44:00 170.18 cm [facility] Weight 2016-08-05 07:44:00 [facility] BMI Calculated 2016-08-05 07:44:00 [facility] Temperature Oral (F) 2016-08-05 07:44:00 97.5 F [facility] Systolic (mm Hg) 2016-08-05 07:44:00 [facility] Diastolic (mm Hg) 2016-08-05 07:44:00 [facility] Heart Rate 2016-08-05 07:44:00 [facility] Respitory Rate 2016-08-05 07:44:00 [facility] Respitory Rate 2016-07-13 18:25:00 [facility] Heart Rate 2016-07-13 18:25:00 [facility] Systolic (mm Hg) 2016-07-13 18:25:00 [facility] Diastolic (mm Hg) 2016-07-13 18:25:00 [facility] Temperature Oral (F) 2016-07-13 18:25:00 97.8 F [facility] Heart Rate 2016-07-13 15:39:00 [facility] Systolic (mm Hg) 2016-07-13 15:39:00 [facility] Diastolic (mm Hg) 2016-07-13 15:39:00 MH [facility] Respitory Rate 2016-07-13 15:39:00 MH [facility] Systolic (mm Hg) 2016-07-13 13:05:00 [facility] Diastolic (mm Hg) 2016-07-13 13:05:00 [facility] Respitory Rate 2016-07-13 13:05:00 [facility] Heart Rate 2016-07-13 13:05:00 [facility] Temperature Oral (F) 2016-07-13 10:07:00 98 F [facility] Height 2016-07-13 09:46:00 167.64 cm [facility] BMI Calculated 2016-07-13 09:46:00 [facility] Weight 2016-07-13 09:46:00 [facility] Temperature Oral (F) 2016-07-13 09:46:00 98.3 F [facility] Respitory Rate 2016-05-10 18:00:00 [facility] Temperature Oral (F) 2016-05-10 18:00:00 98.5 F [facility] Heart Rate 2016-05-10 18:00:00 [facility] Systolic (mm Hg) 2016-05-10 18:00:00 [facility] Diastolic (mm Hg) 2016-05-10 18:00:00 [facility] Respitory Rate 2016-05-10 15:03:00 [facility] Heart Rate 2016-05-10 14:00:00 [facility] Systolic (mm Hg) 2016-05-10 14:00:00 [facility] Diastolic (mm Hg) 2016-05-10 14:00:00 [facility] Respitory Rate 2016-05-10 14:00:00 [facility] Temperature Oral (F) 2016-05-10 14:00:00 98.3 F [facility] Systolic (mm Hg) 2016-05-10 10:00:00 [facility] Diastolic (mm Hg) 2016-05-10 10:00:00 [facility] Heart Rate 2016-05-10 10:00:00 [facility] Temperature Oral (F) 2016-05-10 10:00:00 98.4 F [facility] Weight 2016-05-05 21:42:00 [facility] BMI Calculated 2016-05-05 21:42:00 [facility] Height 2016-05-05 21:42:00 167.64 cm [facility] Height 2016-04-30 12:50:00 167.64 cm [facility] BMI Calculated 2016-04-30 12:50:00 [facility] Weight 2016-04-30 12:50:00 [facility] Height 2016-04-29 21:31:00 167.64 cm [facility] BMI Calculated 2016-04-29 21:31:00 [facility] Weight 2016-04-29 21:31:00 [facility] Systolic (mm Hg) 2016-04-12 22:23:00 [facility] Diastolic (mm Hg) 2016-04-12 22:23:00 [facility] Respitory Rate 2016-04-12 22:23:00 [facility] Temperature Oral (F) 2016-04-12 22:23:00 98.0 F [facility] Heart Rate 2016-04-12 22:23:00 [facility] Weight 2016-04-12 19:10:00 [facility] Height 2016-04-12 19:10:00 167.64 cm [facility] BMI Calculated 2016-04-12 19:10:00 [facility] Respitory Rate 2016-04-12 19:09:00 [facility] Systolic (mm Hg) 2016-04-12 19:09:00 [facility] Diastolic (mm Hg) 2016-04-12 19:09:00 [facility] Respitory Rate 2016-04-12 18:23:00 [facility] Temperature Oral (F) 2016-04-12 18:23:00 98.0 F [facility] Heart Rate 2016-04-12 18:23:00 [facility] Systolic (mm Hg) 2016-04-12 18:23:00 [facility] Diastolic (mm Hg) 2016-04-12 18:23:00 [facility] Heart Rate 2016-04-12 12:29:00 [facility] Temperature Oral (F) 2016-04-12 03:21:00 98.4 F [facility] BMI Calculated 2016-04-12 00:20:00 [facility] Weight 2016-04-12 00:20:00 [facility] Height 2016-04-12 00:20:00 167.64 cm [facility] Respitory Rate 2016-04-06 09:26:00 [facility] Systolic (mm Hg) 2016-04-06 09:26:00 [facility] Diastolic (mm Hg) 2016-04-06 09:26:00 [facility] Heart Rate 2016-04-06 09:26:00 [facility] Temperature Oral (F) 2016-04-06 09:26:00 97.8 F [facility] Heart Rate 2016-04-06 04:06:00 [facility] Systolic (mm Hg) 2016-04-06 04:06:00 [facility] Respitory Rate 2016-04-06 04:06:00 [facility] Diastolic (mm Hg) 2016-04-06 04:06:00 [facility] Temperature Oral (F) 2016-04-06 04:06:00 97.7 F [facility] Weight 2016-04-06 00:07:00 [facility] Respitory Rate 2016-04-06 00:07:00 [facility] Temperature Oral (F) 2016-04-06 00:07:00 97.8 F [facility] Height 2016-04-06 00:07:00 165.1 cm [facility] BMI Calculated 2016-04-06 00:07:00 [facility] Heart Rate 2016-04-06 00:07:00 [facility] Systolic (mm Hg) 2016-04-06 00:07:00 [facility] Diastolic (mm Hg) 2016-04-06 00:07:00 [facility] Systolic (mm Hg) 2016-03-03 04:00:00 [facility] Diastolic (mm Hg) 2016-03-03 04:00:00 [facility] Respitory Rate 2016-03-03 04:00:00 [facility] Temperature Oral (F) 2016-03-03 04:00:00 98.2 F [facility] Heart Rate 2016-03-03 04:00:00 [facility] Temperature Oral (F) 2016-03-03 01:26:00 98.0 F [facility] Respitory Rate 2016-03-03 01:26:00 [facility] Systolic (mm Hg) 2016-03-03 01:26:00 [facility] Diastolic (mm Hg) 2016-03-03 01:26:00 [facility] Heart Rate 2016-03-03 01:26:00 [facility] Height 2016-03-03 00:23:00 167.64 cm [facility] BMI Calculated 2016-03-03 00:23:00 [facility] Weight 2016-03-03 00:23:00 [facility] Temperature Oral (F) 2016-03-03 00:23:00 98.0 F [facility] Rate 2016-03-03 00:23:00 MH [facility] Respitory Rate 2016-03-03 00:23:00 [facility] Systolic (mm Hg) 2016-03-03 00:23:00 [facility] Diastolic (mm Hg) 2016-03-03 00:23:00 [facility] Systolic (mm Hg) 2015-03-21 04:19:00 [facility] Diastolic (mm Hg) 2015-03-21 04:19:00 [facility] Respitory Rate 2015-03-21 04:19:00 [facility] Heart Rate 2015-03-21 04:19:00 [facility] Temperature Oral (F) 2015-03-21 04:19:00 98.0 F [facility] Weight 2015-03-21 01:18:00 [facility] BMI Calculated 2015-03-21 01:18:00 [facility] Respitory Rate 2015-03-21 01:18:00 [facility] Heart Rate 2015-03-21 01:18:00 [facility] Systolic (mm Hg) 2015-03-21 01:18:00 [facility] Diastolic (mm Hg) 2015-03-21 01:18:00 [facility] Temperature Oral (F) 2015-03-21 01:18:00 98.3 F [facility] Height 2015-03-21 01:18:00 167.64 cm [facility] Systolic (mm Hg) 2014-09-30 04:32:00 [facility] Diastolic (mm Hg) 2014-09-30 04:32:00 [facility] Temperature Oral (F) 2014-09-30 04:32:00 98 F [facility] Respitory Rate 2014-09-30 04:32:00 [facility] Heart Rate 2014-09-30 04:32:00 [facility] Heart Rate 2014-09-30 00:10:00 [facility] Systolic (mm Hg) 2014-09-30 00:10:00 [facility] Diastolic (mm Hg) 2014-09-30 00:10:00 [facility] Temperature Oral (F) 2014-09-30 00:10:00 97.9 F [facility] Respitory Rate 2014-09-30 00:10:00 [facility] Respitory Rate 2014-09-29 21:14:00 [facility] Systolic (mm Hg) 2014-09-29 21:14:00 [facility] Diastolic (mm Hg) 2014-09-29 21:14:00 [facility] Heart Rate 2014-09-29 21:14:00 MH [facility] Temperature Oral (F) 2014-09-29 21:14:00 97.5 F [facility] BMI Calculated 2014-09-14 08:04:00 [facility] Weight 2014-09-14 08:04:00 [facility] Height 2014-09-14 08:04:00 167.64 cm [facility] BMI Calculated 2014-09-14 02:59:00 [facility] Weight 2014-09-14 02:59:00 [facility] Height 2014-09-14 02:59:00 170.18 cm [facility] Respitory Rate 2014-02-09 16:16:00 [facility] Heart Rate 2014-02-09 16:16:00 [facility] Systolic (mm Hg) 2014-02-09 16:16:00 [facility] Diastolic (mm Hg) 2014-02-09 16:16:00 [facility] Temperature Oral (F) 2014-02-09 16:16:00 97.6 F [facility] BMI Calculated 2014-02-09 14:50:00 [facility] Height 2014-02-09 14:50:00 167.64 cm [facility] Weight 2014-02-09 14:50:00 [facility] Diastolic (mm Hg) 2014-02-09 14:50:00 [facility] Respitory Rate 2014-02-09 14:50:00 [facility] Heart Rate 2014-02-09 14:50:00 [facility] Temperature Oral (F) 2014-02-09 14:50:00 97.7 F [facility] Systolic (mm Hg) 2014-02-09 14:50:00 [facility] Weight 2014-02-09 14:49:00 [facility] BMI Calculated 2014-02-09 14:49:00 [facility] Height 2014-02-09 14:49:00 167.64 cm [facility] Diastolic (mm Hg) 2013 17:00:00 [facility] Systolic (mm Hg) 2013 17:00:00 [facility] Heart Rate 2013 17:00:00 [facility] Respitory Rate 2013 17:00:00 [facility] Temperature Oral (F) 2013 17:00:00 98.2 F [facility] Diastolic (mm Hg) 2013 13:00:00 [facility] Systolic (mm Hg) 2013 13:00:00 [facility] Respitory Rate 2013 13:00:00 [facility] Temperature Oral (F) 2013 13:00:00 98.0 F [facility] Heart Rate 2013 13:00:00 [facility] Diastolic (mm Hg) 2013 10:51:00 [facility] Systolic (mm Hg) 2013 10:51:00 [facility] Heart Rate 2013 10:51:00 [facility] Temperature Oral (F) 2013 10:51:00 97.4 F [facility] Respitory Rate 2013 05:00:00 [facility] Height 2013-12-10 18:46:00 170.18 cm [facility] BMI Calculated 2013-12-10 18:46:00 [facility] Weight 2013-12-10 18:46:00 [facility] Height 2013-12-07 01:22:00 170.18 cm [facility] BMI Calculated 2013-12-07 01:22:00 [facility] Weight 2013-12-07 01:22:00 [facility] Systolic (mm Hg) 2013-12-07 01:22:00 [facility] Temperature Oral (F) 2013-12-07 01:22:00 98.4 F [facility] Respitory Rate 2013-12-07 01:22:00 [facility] Heart Rate 2013-12-07 01:22:00 [facility] Diastolic (mm Hg) 2013-12-07 01:22:00 [facility] Temperature Oral (F) 2013-09-24 13:03:00 98.3 F [facility] Systolic (mm Hg) 2013-09-24 13:03:00 [facility] Diastolic (mm Hg) 2013-09-24 13:03:00 [facility] Heart Rate 2013-09-24 13:03:00 [facility] Respitory Rate 2013-09-24 13:03:00 [facility] Heart Rate 2013-09-24 09:45:00 [facility] Temperature Oral (F) 2013-09-24 09:45:00 98.1 F [facility] Respitory Rate 2013-09-24 09:45:00 [facility] Systolic (mm Hg) 2013-09-24 09:45:00 [facility] Diastolic (mm Hg) 2013-09-24 09:45:00 [facility] Temperature Oral (F) 2013-09-24 05:35:00 98.2 F [facility] Systolic (mm Hg) 2013-09-24 05:35:00 [facility] Respitory Rate 2013-09-24 05:35:00 [facility] Heart Rate 2013-09-24 05:35:00 [facility] Diastolic (mm Hg) 2013-09-24 05:35:00 [facility] BMI Calculated 2013-09-18 22:44:00 [facility] Height 2013-09-18 22:44:00 167.64 cm [facility] Weight 2013-09-18 22:44:00 [facility] Temperature Oral (F) 2013-09-13 08:26:00 98.1 [facility] Systolic (mm Hg) 2013-09-13 08:26:00 [facility] Diastolic (mm Hg) 2013-09-13 08:26:00 [facility] Diastolic (mm Hg) 2013-09-13 05:49:00 [facility] Systolic (mm Hg) 2013-09-13 05:49:00 [facility] Temperature Oral (F) 2013-09-13 05:49:00 98.1 F [facility] Systolic (mm Hg) 2013-09-13 04:10:00 [facility] Diastolic (mm Hg) 2013-09-13 04:10:00 [facility] BMI Calculated 2013-09-12 22:26:00 [facility] Height 2013-09-12 22:26:00 167.64 cm [facility] Weight 2013-09-12 22:26:00 [facility] Respitory Rate 2013-09-12 22:26:00 [facility] Temperature Oral (F) 2013-09-12 22:26:00 98.2 [facility] Heart Rate 2013-09-12 22:26:00 [facility] Temperature Oral (F) 2013-09-10 12:00:00 97.9 F [facility] Heart Rate 2013-09-10 12:00:00 [facility] Respitory Rate 2013-09-10 12:00:00 [facility] Diastolic (mm Hg) 2013-09-10 12:00:00 [facility] Systolic (mm Hg) 2013-09-10 12:00:00 [facility] Temperature Oral (F) 2013-09-10 09:12:00 97.9 F [facility] Heart Rate 2013-09-10 09:12:00 [facility] Respitory Rate 2013-09-10 09:12:00 [facility] Systolic (mm Hg) 2013-09-10 09:12:00 [facility] Diastolic (mm Hg) 2013-09-10 09:12:00 [facility] Systolic (mm Hg) 2013-09-10 05:25:00 [facility] Diastolic (mm Hg) 2013-09-10 05:25:00 [facility] Heart Rate 2013-09-10 05:25:00 [facility] Temperature Oral (F) 2013-09-10 05:25:00 98.2 F [facility] Respitory Rate 2013-09-10 05:25:00 [facility] Weight 2013-09-02 01:49:00 [facility] BMI Calculated 2013-09-02 01:49:00 [facility] Height 2013-09-02 01:49:00 167.64 cm [facility] Temperature Oral (F) 2013-09-01 12:06:00 97.1 F [facility] Diastolic (mm Hg) 2013-09-01 10:00:00 [facility] Systolic (mm Hg) 2013-09-01 10:00:00 [facility] Respitory Rate 2013-09-01 10:00:00 [facility] Heart Rate 2013-09-01 10:00:00 [facility] Temperature Oral (F) 2013-09-01 10:00:00 97.2 F [facility] Respitory Rate 2013-09-01 08:00:00 [facility] Systolic (mm Hg) 2013-09-01 08:00:00 [facility] Diastolic (mm Hg) 2013-09-01 08:00:00 [facility] Heart Rate 2013-09-01 08:00:00 [facility] Systolic (mm Hg) 2013-09-01 06:00:00 [facility] Diastolic (mm Hg) 2013-09-01 06:00:00 [facility] Respitory Rate 2013-09-01 06:00:00 [facility] Heart Rate 2013-09-01 06:00:00 [facility] Temperature Oral (F) 2013-09-01 04:30:00 97.6 F [facility] Weight 2013-09-01 04:30:00 MH [facility] Systolic (mm Hg) 2013-06-10 14:00:00 [facility] Diastolic (mm Hg) 2013-06-10 14:00:00 [facility] Temperature Oral (F) 2013-06-10 14:00:00 98.4 F [facility] Respitory Rate 2013-06-10 14:00:00 [facility] Heart Rate 2013-06-10 14:00:00 [facility] Respitory Rate 2013-06-10 12:51:00 [facility] Diastolic (mm Hg) 2013-06-10 10:09:00 [facility] Temperature Oral (F) 2013-06-10 10:09:00 98.0 F [facility] Systolic (mm Hg) 2013-06-10 10:09:00 [facility] Heart Rate 2013-06-10 10:09:00 [facility] Respitory Rate 2013-06-10 10:09:00 [facility] Heart Rate 2013-06-10 06:32:00 [facility] Temperature Oral (F) 2013-06-10 06:32:00 98.0 F [facility] Systolic (mm Hg) 2013-06-10 06:32:00 [facility] Diastolic (mm Hg) 2013-06-10 06:32:00 [facility] Weight 2013-06-05 20:50:00 [facility] Height 2013-06-05 20:50:00 170.18 cm MH [facility] Respitory Rate 2013-02-12 05:17:00 [facility] Systolic (mm Hg) 2013-02-12 05:17:00 [facility] Diastolic (mm Hg) 2013-02-12 05:17:00 [facility] Heart Rate 2013-02-12 05:17:00 MH [facility] Respitory Rate 2013-02-12 04:45:00 [facility] Systolic (mm Hg) 2013-02-12 04:45:00 [facility] Diastolic (mm Hg) 2013-02-12 04:45:00 [facility] Heart Rate 2013-02-12 04:45:00 [facility] Systolic (mm Hg) 2013-02-12 02:10:00 [facility] Diastolic (mm Hg) 2013-02-12 02:10:00 [facility] Heart Rate 2013-02-12 02:10:00 [facility] Respitory Rate 2013-02-12 02:10:00 [facility] Weight 2013-02-12 01:51:00 [facility] Height 2013-02-12 01:51:00 170.18 cm [facility] Temperature Oral (F) 2013-02-12 01:51:00 98.8 F [facility] Weight 2012-10-19 10:16:00 [facility] Height 2012-10-19 10:16:00 170.18 cm [facility] Weight 2012-09-28 00:56:00 [facility] Height 2012-09-28 00:56:00 170.18 cm [facility] Temperature Oral (F) 2012-08-11 17:15:00 97.9 F [facility] Heart Rate 2012-08-11 17:15:00 [facility] Diastolic (mm Hg) 2012-08-11 17:15:00 [facility] Respitory Rate 2012-08-11 17:15:00 [facility] Systolic (mm Hg) 2012-08-11 17:15:00 [facility] Heart Rate 2012-08-11 15:36:00 [facility] Diastolic (mm Hg) 2012-08-11 15:36:00 [facility] Systolic (mm Hg) 2012-08-11 15:36:00 [facility] Respitory Rate 2012-08-11 15:26:00 [facility] Temperature Oral (F) 2012-08-11 12:36:00 97.9 F [facility] Diastolic (mm Hg) 2012-08-11 12:36:00 [facility] Heart Rate 2012-08-11 12:36:00 [facility] Respitory Rate 2012-08-11 12:36:00 [facility] Systolic (mm Hg) 2012-08-11 12:36:00 [facility] Temperature Oral (F) 2012-08-11 09:05:00 97.6 F [facility] Weight 2012-08-06 21:08:00 [facility] Height 2012-08-06 21:08:00 167.64 cm [facility] Height 2012-08-06 20:32:00 167.64 cm [facility] Weight 2012-08-06 20:32:00 [facility] Diastolic (mm Hg) 2012-07-19 22:00:00 [facility] Heart Rate 2012-07-19 22:00:00 MH [facility] Systolic (mm Hg) 2012-07-19 22:00:00 [facility] Respitory Rate 2012-07-19 22:00:00 [facility] Temperature Oral (F) 2012-07-19 22:00:00 97.4 F [facility] Diastolic (mm Hg) 2012-07-19 18:00:00 [facility] Systolic (mm Hg) 2012-07-19 18:00:00 [facility] Respitory Rate 2012-07-19 18:00:00 [facility] Heart Rate 2012-07-19 18:00:00 [facility] Temperature Oral (F) 2012-07-19 18:00:00 97.8 F [facility] Systolic (mm Hg) 2012-07-19 14:00:00 [facility] Respitory Rate 2012-07-19 14:00:00 [facility] Temperature Oral (F) 2012-07-19 14:00:00 97.5 F [facility] Diastolic (mm Hg) 2012-07-19 14:00:00 [facility] Heart Rate 2012-07-19 14:00:00 [facility] Height 2012-07-18 05:05:00 167.64 cm [facility] Weight 2012-07-18 05:05:00 [facility] Weight 2012-07-18 05:01:00 [facility] Height 2012-07-18 05:01:00 167.64 cm [facility] Height 2012-07-17 20:14:00 170.18 cm [facility] Weight 2012-07-17 20:14:00 [facility] Weight 2012-07-16 02:49:00 [facility] Height 2012-07-16 02:49:00 170.18 cm [facility] Diastolic (mm Hg) 2012-07-11 21:37:00 [facility] Systolic (mm Hg) 2012-07-11 21:37:00 MH S [...] 17:58:00 [facility] Weight 2012-07-08 07:25:00 [facility] Height 2012-07-07 05:32:00 170.18 cm [facility] Weight 2012-07-07 05:32:00 [facility] Height 2012-05-31 13:41:00 170.18 cm [facility] Weight 2012-05-31 13:41:00 [facility] Weight 2012-04-08 20:14:00 [facility] Height 2012-04-08 20:14:00 167.64 cm [facility] Height 2012-02-16 20:44:00 170.18 cm [facility] Weight 2012-02-16 20:44:00 [facility] Height 2012-01-25 02:28:00 167.64 cm [facility] Weight 2012-01-25 02:28:00 [facility] Systolic (mm Hg) 2012-01-02 15:02:00 [facility] Heart Rate 2012-01-02 15:02:00 [facility] Diastolic (mm Hg) 2012-01-02 15:02:00 [facility] Respitory Rate 2012-01-02 14:15:00 [facility] Systolic (mm Hg) 2012-01-02 14:15:00 [facility] Diastolic (mm Hg) 2012-01-02 14:15:00 [facility] Respitory Rate 2012-01-02 14:00:00 [facility] Diastolic (mm Hg) 2012-01-02 14:00:00 [facility] Systolic (mm Hg) 2012-01-02 14:00:00 [facility] Respitory Rate 2012-01-02 13:45:00 [facility] Heart Rate 2012-01-02 13:00:00 [facility] Temperature Oral (F) 2012-01-02 13:00:00 97.5 F [facility] Heart Rate 2012-01-02 09:00:00 [facility] Temperature Oral (F) 2012-01-02 09:00:00 95.5 F [facility] Temperature Oral (F) 2012-01-02 05:00:00 95.4 F [facility] Height 2011-12-31 22:20:00 170.18 cm [facility] Weight 2011-12-31 22:20:00 [facility] Weight 2011-12-31 03:33:00 [facility] Weight 2011-10-16 06:11:00 [facility] Height 2011-10-16 06:11:00 167.64 cm [facility] Systolic (mm Hg) 2011-10-10 17:00:00 [facility] Diastolic (mm Hg) 2011-10-10 17:00:00 [facility] Temperature Oral (F) 2011-10-10 17:00:00 98.3 F [facility] Heart Rate 2011-10-10 17:00:00 [facility] Respitory Rate 2011-10-10 17:00:00 [facility] Respitory Rate 2011-10-10 09:00:00 [facility] Systolic (mm Hg) 2011-10-10 09:00:00 [facility] Temperature Oral (F) 2011-10-10 09:00:00 97.6 F [facility] Heart Rate 2011-10-10 09:00:00 [facility] Diastolic (mm Hg) 2011-10-10 09:00:00 [facility] Heart Rate 2011-10-10 05:00:00 [facility] Respitory Rate 2011-10-10 05:00:00 [facility] Temperature Oral (F) 2011-10-10 05:00:00 98.4 F [facility] Systolic (mm Hg) 2011-10-10 05:00:00 [facility] Diastolic (mm Hg) 2011-10-10 05:00:00 [facility] Height 2011-10-09 03:25:00 170.18 cm [facility] Weight 2011-10-09 03:25:00 [facility] Procedures Procedure Date / Time Performed Performing Clinician [facility] e X-ray of chest, two views 2019-05-19 00:00:00 GERARDO SARGENT [facility] Computed tomography of chest with contrast 2019-05-19 00:00:00 BRENNAN WILLIAMSON [facility] Biopsy of liver 2011-05-15 00:00:00 [facility] Gastric bypass operation [facility] Abdominal hyste[facility] Hernia repair [facility] Back fusion [facility] Internal and external hemorrhoidectomy and anal fissurectomy [facility] Cholecystectomy [facility] Foot joint operations [facility] st Tonsil operation [facility] Abdominal hysterectomy [facility] [...] gnant neoplasm of cervix (procedure) [code = [id number]] Juan Carlos lonoey Encounters Start Date/Time End Date/Time Encounter Type Admission Type Attendi [facility] Care Department Encounter ID Source 2019-10-09 12:26:33 OD [facility] [id number] [facility] [place] 2019-07-25 16:32:00 2019-07-25 18:22:00 Departed Emergency Room 1 SIMA LINARES [facility] [id number] [facility] 2019-05-19 12:57:00 2019-05-19 18:33:00 Departed Emergency Room 1 BRENNAN SOUSA [facility] [id number] [facility] 2018-09-18 16:58:00 2018-09-19 01:29:00 Departed Emergency Room 1 SHY CAMPOS [facility] [id number] [facility] 2017-07-11 23:20:00 2017-07-11 23:58:00 Departed Emergency Room [facility] [id number] [facility] 2017-07-09 18:43:00 2017-07-09 20:45:00 Departed Emergency Room [facility] [id number] [facility] 2016-08-05 07:41:00 2016-08-05 11:06:00 Emergency [facility] [id number] [facility] 2016-08-05 02:41:00 2016-08-05 06:06:00 [facility] [id number] 2016-07-13 09:45:00 2016-07-13 18:27:00 Observation [facility] [id number] [facility] 2016-07-13 03:45:00 2016-07-13 12:27:00 Outpatient [facility]iel [facility] [id number] 2016-04-29 21:29:00 2016-05-11 00:14:00 Inpatient [facility] [id number] [facility] 2016-04-29 15:29:00 2016-05-10 18:14:00 Outpatient Lu Garza [facility] [id number] 2016-04-12 00:18:00 2016-04-12 23:16:00 Observation [facility] [id number] [facility] 2016-04-11 18:18:00 2016-04-12 17:16:00 Outpatient Tesfaye Verdin [facility] [id number] 2016-04-05 23:56:00 2016-04-06 09:33:00 Emergency [facility] [id number] [facility] 2016-04-05 17:56:00 2016-04-06 03:33:00 Outpatient Yanet Smith [facility] [id number] 2016-03-03 00:21:00 2016-03-03 04:34:00 Emergency [facility] [id number] [facility] 2016-03-02 19:21:00 2016-03-02 23:34:00 Outpatient Royer Stallworth [facility] [id number] 2015-03-21 01:16:00 2015-03-21 04:46:00 [facility] [id number] [facility] 2015-03-20 19:16:00 2015-03-20 22:46:00 Outpatient Yanet Smith [facility] [id number] 2014-09-14 02:58:00 2014-09-30 05:30:00 Inpatient [facility] [id number] [facility] 2014-09-13 21:58:00 2014-09-30 00:30:00 Outpatient Morgan Ochoa [facility] [id number] 2014-02-09 14:48:00 2014-02-09 16:25:00 [facility] [id number] [facility] 2014-02-09 09:48:00 2014-02-09 11:25:00 Outpatient Prasad Killian [facility] [id number] 2013-12-12 12:07:00 2013 19:27:00 [facility] [id number] 2013-12-12 07:07:00 2013 14:27:00 Outpatient Hugh Bolaños [facility] [id number] 2013-12-07 01:13:00 2013-12-07 07:31:00 [facility] [id number] [facility] 2013-12-06 20:13:00 2013-12-07 02:31:00 Outpatient [facility] R [facility] [id number] 2013-12-05 15:47:00 2013-12-06 04:59:00 Outpt Diag Services [facility] [place] [id number] [facility] [place] 2013-12-05 10:47:00 2013-12-05 23:59:00 Outpatient Miky En sayet [facility] [id number] 2013-09-18 21:56:00 2013-09-24 16:35:00 Inpatient [facility] [id number] [facility] 2013-09-18 16:56:00 2013-09-24 11:35:00 Outpatient Miky En sayet [facility] [id number] 2013-09-12 22:16:00 2013-09-13 08:29:00 [facility] Emergency [facility] [id number] [facility] 2013-09-12 17:16:00 2013-09-13 03:29:00 Outpatient Antonio Hope [facility] [id number] 2013-09-02 01:06:00 2013-09-10 14:55:00 Inpatient [facility] [id number] [facility] 2013-09-01 20:06:00 2013-09-10 09:55:00 Outpatient Hugh Bolañoset [facility] [id number] 2013-09-01 04:27:00 2013-09-01 12:09:00 [facility] [id number] [facility] 2013-08-31 23:27:00 2013-09-01 07:09:00 Outpatient Yefri Riojas R [facility] [id number] 2013-06-06 12:16:00 2013-06-10 12:50:00 Inpatient MHIEAL T [facility] [id number] [facility] 2013-06-06 12:16:00 2013-06-10 12:50:00 Outpatient MHIEA LT [facility] [id number] [facility] 2013-02-11 20:47:00 2013-02-12 06:00:00 Emergency MHIEAL T [facility] [id number] [facility] 2012-10-19 05:15:00 2012-10-19 06:53:00 Emergency MHIEAL T [facility] [id number] [facility] 2012-09-27 19:55:00 2012-09-28 02:23:00 Emergency MHIEALT MH [facility] [id number] [facility] 2012-08-07 10:25:00 2012-08-11 14:40:00 Inpatient MHIEAL T [facility] [id number] [facility] 2012-07-17 18:58:00 2012-07-19 17:45:00 OU MHIEALT MH [facility] [id number] [facility] 2012-07-15 20:48:00 2012-07-16 03:19:00 Emergency MHIEAL T [facility] [id number] [facility] 2012-07-10 16:30:00 2012-07-11 19:15:00 Inpatient MHIEAL T [facility] [id number] [facility] 2012-07-08 01:23:00 2012-07-08 01:24:00 Emergency MHIEAL T [facility] [id number] [facility] 2012-07-06 23:32:00 2012-07-07 03:20:00 Emergency MHIEAL T [facility] [id number] [facility] 2012-05-31 07:40:00 2012-05-31 09:46:00 Emergency MHIEAL T [facility] [id number] [facility] 2012-04-08 14:13:00 2012-04-08 19:04:00 Emergency MHIEAL T [facility] [id number] [facility] 2012-03-07 09:35:00 2012-03-07 23:59:00 OD MH[facility]ALT [facility] [id number] [facility] 2012-02-16 15:43:00 2012-02-16 19:33:00 Emergency MHIEAL T [facility] [id number] [facility] 2012-01-24 21:26:00 2012-01-25 01:41:00 Emergency MHIEAL T [facility] [id number] [facility] 2011-12-31 20:56:00 2012-01-02 15:26:00 OU MHIEALT [facility] [id number] [facility] 2011-12-30 22:32:00 2011-12-31 01:07:00 Emergency ESTELA Looney [facility] [id number] [facility] 2011-10-16 01:09:00 2011-10-16 02:27:00 Emergency ESTELA Looney [facility] [id number] [facility] 2011-10-09 03:33:00 2011-10-10 15:35:00 OU ALIRIOALT [facility] [id number] [facility] Results Test Description Test Time Test Comments Results Result Comments Source CT ABDOMEN/PELVIS WO 2019-10-09 11:08:00 [place] [address] Patient Name: LOGAN MCCRACKEN MR #: [id number] : 1975 Age/Sex: 43/F Req #: [id number] Adm Physician: Ordered by: DARCY CASTILLO Report #: [id number] Location: ER Room/Bed: Procedure: [id number] CT/CT ABDOMEN/PELVIS WO Exam Date: 10/09/19 Exam Time: 1020 REPORT STATUS: Signed EXAM: CT Abdomen and Pelvis WITHOUT intravenous contrast INDICATION: Abdominal pain, diarrhea, nausea COMPARISON: None. TECHNIQUE: Abdomen and pelvis were scanned utilizing a multidetector helical scanner from the lung base to the pubic symphysis without administration of IV contrast. Coronal and sagittal reformations were obtained. IV CONTRAST: None ORAL CONTRAST: Water COMPLICATIONS: None RADIATION DOSE: Total DLP: 820 mGy*cm Dose modulation, iterative reconstruction, and/or weight based adjustment of the mA/kV was utilized to reduce the radiation dose to as low as reasonably achievable. FINDINGS: LOWER THORAX: Normal. HEPATOBILIARY: No focal liver lesion. No biliary ductal dilation. Status post cholecystectomy. SPLEEN: No splenomegaly. PANCREAS: No focal masses or ductal dilatation. ADRENALS: No adrenal nodules. KIDNEYS/URETERS: No hydronephrosis, stones, or solid mass lesions. PELVIC ORGANS/BLADDER: Status post hysterectomy. PERITONEUM / RETROPERITONEUM: No free air or fluid. LYMPH NODES: No lymphadenopathy. VESSELS: Unremarkable. GI TRACT: No abnormal bowel thickening. No bowel obstruction. Normal appendix. BONES AND SOFT TISSUES: Left lower quadrant implanted pain pump. No acute osseous injury. Postoperative findings of posterior decompression and fusion at L4-S1. IMPRESSION: No acute findings in the abdomen or pelvis. Signed by: Stew Mitchell MD on 10/09/2019 11:19 AM Dictated By: STEW MITCHELL MD 111 Transcribed By: ANUSHKA on 10/09/191118 COPY TO: DARCY CASTILLO CHEST SINGLE (PORTABLE) 2019-10-09 09:51:00 [place] [address] Patient Name: LOGAN MCCRACKEN MR #: [id number] : 1975 Age/Sex: 43/F Req #: [id number] Adm Physician: Ordered by: DARCY CASTILLO Report #: [id number] Location: ER Room/Bed: Procedure: [id number] DX/CHEST SINGLE (PORTABLE) Exam Date: 10/09/19 Exam Time: 0900 REPORT STATUS: Signed EXAMINATION: CHEST SINGLE (PORTABLE) INDICATION: Fever COMPARISON: Chest CT 05/19/2019, chest radiograph 05/19/2019 FINDINGS: LINES/TUBES:EKG leads overlie the chest. LUNGS:The lungs are well-inflated. No focal consolidation or p ulmonary edema. PLEURA:No pleural effusion or pneumothorax. MEDIASTINUM:The cardiomediastinal silhouette appears normal in size and shape. BONES/SOFT TISSUES:No acute osseous injury. ABDOMEN:No free air under the diaphragm. IMPRESSION: No focal pneumonia or pulmonary edema. Signed by: Stew Mitchell MD on 10/09/2019 9:53 AM Dictated By: STEW MITCHELL MD 2 Transcribed By: ANUSHKA on 10/09/19952 COPY TO: DARCY CASTILLO CT BRAIN WO 2019-10-09 09:50:00 [place] [address] Patient Name: LOGAN MCCRACKEN MR #: [id number] : 1975 Age/Sex: 43/F Req #: [id number] Adm Physician: Ordered by: DARCY CASTILLO Report #: [id number] Location: ER Room/Bed: Procedure: [id number] CT/CT BRAIN WO Exam Date: 10/09/19 Exam Time: 0900 REPORT STATUS: Signed CT BRAIN WO HISTORY: Headache COMPARISON: Head CT 03/06/2016 TECHNIQUE: Noncontrast axial scans were obtained from skull base to the vertex. Coronal and sagittal reconstructions obtained from the axial data. One or more of the following dose reduction techniques were used: Automated exposure control, adjustment of the mA and/or kV according to patient size, and/or utilization of iterative reconstruction technique. DISCUSSION: Scalp/Skull: Unremarkable. Brain sulci: Appropriate for patient's age. Ventricles: Normal in size and configuration. No hydrocephalus. Extra-axial spaces: No masses or fluid collections. Parenchyma: No abnormal densities. No mass, hemorrhage, or large vascular territory acute infarct. Dural sinuses: No abnormal densities. Sellar/Suprasellar region: Empty sella. Skull base: Intact. Incidental findings: None. IMPRESSION: 1. No acute intracranial abnormalities. 2. Nonspecific empty sella. Signed by: Dr. Yifan Mensah M.D. on 10/09/2019 9:55 AM Dictated By: YIFAN MENSAH MD 4 Transcribed By: ANUSHKA on 10/09/19954 COPY TO: DARCY CASTILLO SHOULDER 2+VW RT - HOPD 2019-07-25 17:39:00 [place] [address] Patient Name: LOGAN MCCRACKEN MR #: [id number] : 1975 Age/Sex: 43/F Req #: [id number] Adm Physician: Ordered by: SIMA LINARES MD Report #: [id number] Location: [facility] Room/Bed: Procedure: [id number] HOPD/SHOULDER 2+VW RT - [facility] Exam Date: [...] CXR 2 VIEW - [facility]OPD 2019-07-25 17:38:00 [facility] [address] [place] [address] Patient Name: LOGAN MCCRACKEN MR #: [id number] : 1975 Age/Sex: 43/F Req #: [id number] Adm Physician: Ordered by: SIMA LINARES MD Report #: [id number] Location: [facility] Room/Bed: Procedure: [id number] HOPD/CXR 2 VIEW - [facility]OPD Exam Date: [...] Test Item Blood Culture (test code = 18794709) NO GROWTH AFTER 5 DAYS, FINAL REPORT [facility] [id number] 17:11:00* Test Item Value Reference Range Interpretation Comments Urine WBC (test code = 5821-4) 0-5 0-5 [facility] [id number] 17:11:00* Test Item Value Reference Range Interpretation Comments Urine RBC (test code = 78663-8) 0-5 0-5 [facility] [id number] 17:11:00* Test Item Value Reference Range Interpretation Comments Urine Bacteria (test code = 35969-3) FEW NONE [facility] Epithelial [id number] 17:11:00 * Test Item Value Reference Range Interpretation Comments Urine Epithelial Cells (test code = 35995-6) FEW NONE [facility] [id number] 17:07:00* Test Item Value Reference Range Interpretation Comments Urine Test (test code = 2106-3) NEGATIVE NEGATIVE [facility] [id number] 17:06:00* Test Item Value Reference Range Interpretation Comments Urine Color (test code = 5778-6) YELLOW YELLOW [facility] [id number] 17:06:00* Test Item Value Reference Range Interpretation Comments Urine Clarity (test code = 73460-6) SL CLOUDY CLEAR [facility] Specific [id number] 17:06:00 * Test Item Value Reference Range Interpretation Comments Urine Specific [place] (test code = 5811-5) 1.020 1.010-1.02 5 [facility] [id number] 17:06:00* Test Item Value Reference Range Interpretation Comments Urine pH (test code = 20575-6) 6 5-7 [facility] Leukocyte [id number] 17:06:00* Test Item Value Reference Range Interpretation Comments Urine Leukocyte Esterase (test code = 67960-4) NEGATIVE NEGATIV E [facility] [id number] 17:06:00* Test Item Value Reference Range Interpretation Comments Urine Nitrite (test code = 89782-8) NEGATIVE NEGATIVE [facility] [id number] 17:06:00* Test Item Value Reference Range Interpretation Comments Urine Protein (test code = 64569-3) NEGATIVE NEGATIVE [facility] Glucose (UA)2019-05-19 17:06:00* Test Item Value Reference Range Interpretation Comments Urine Glucose (UA) (test code = 03621-6) NEGATIVE NEGATIVE [facility] [id number] 17:06:00* Test Item Value Reference Range Interpretation Comments Urine Ketones (test code = 77441-7) NEGATIVE NEGATIVE [facility] Ktcftzghatqi2560-73-70 17:06:00* Test Item Value Reference Range Interpretation Comments Urine Urobilinogen (test code = 98922-7) 0.2 0.2-1 [facility] [id number] 17:06:00* Test Item Value Reference Range Interpretation Comments Urine Bilirubin (test code = 1977-8) NEGATIVE NEGATIVE [facility] [id number] 17:06:00* Test Item Value Reference Range Interpretation Comments Urine Blood (test code = 09665-8) NEGATIVE NEGATIVE [facility] Types A,B Antigen 2019-05-19 16:33:00* Test Item Value Reference Range Interpretation Comments Influenza Virus Types A,B Antigen (test code = 79616-5) NEGATIVE NEGATIVE [facility] [id number] 16:14:00 [place] [address] Patient Name: LOGAN MCCRACKEN MR #: [id number] : 1975 Age/Sex: 43/F Req #: [id number] Adm Physician: Ordered by: BRENNAN SOUSA DO Report #: [id number] Location: ER Room/Bed: Procedure: [id number] CT/CT CHEST W Exam Date: 05/19/19 Exam [...] 4:19 PM Dictated By: BRYANT HENDRIX MD 18 Transcribed By: DOMINIC OWENS on 05/19/191618 COPY TO: BRENNAN SOUSA DO Differential Total Cells Zsbuenn5875-39-45 15:55:00* Test Item Value Reference Range Interpretation Comments Differential Total Cells Counted (test code = Differen tial Total Cells Counted) 100 [facility]ophils % (Manual)2019-05-19 15:55:00 * Test Item Value Reference Range Interpretation Comments Neutrophils % (Manual) (test code = 41270-5) 62 40-74 [facility]2019-05-19 15:55:00* Test Item Value Reference Range Interpretation Comments Band Neutrophils % (test code = 764-1) 5 [facility]Lymph[facility] % (Manual)2019-05-19 15:55:00 * Test Item Value Reference Range Interpretation Comments Lymphocytes % (Manual) (test code = 737-7) 20 19-48 [facility] % ([facility]ual)2019-05-19 15:55:00* Test Item Value Reference Range Interpretation Comments Monocytes % (Manual) (test code = 744-3) 8 3.4-9.0 [facility]Eosinophils % (Manual)2019-05-19 15:55:00 * Test Item Value Reference Range Interpretation Comments Eosinophils % (Manual) (test code = 714-6) 5 0-7 [facility] HospitalPlatelet Ecavbgxn9044-71-40 15:55:00* Test Item Value Reference Range Interpretation Comments Platelet Estimate (test code = 38157-7) ADEQUATE [facility] HospitalPlatelet Morphology Ohnlnco8814-93-16 15:55:00* Test Item Value Reference Range Interpretation Comments Platelet Morphology Comment (test code = 51316-8) NORMAL [facility] HospitalRed Cell Morphology Fmpdmqz5400-02-51 15:55:00* Test Item Value Reference Range Interpretation Comments Red Cell Morphology Comment (test code = 6742-1) NORMAL [facility] HospitalLactic Acid Elrju0967-51-19 15:19:00* Test Item Value Reference Range Interpretation Comments Lactic Acid Level (test code = Lactic Acid Level) 0.8 0.5- 2.0 [facility] HospitalActivated Partial Thromboplast Time 2019-05-19 15:12:00* Test Item Value Reference Range Interpretation Comments Activated Partial Thromboplast Time (test code = 67608-9) 33.0 23.8-35.5 [facility] HospitalWhite Blood Dnfqp7146-94-40 15:10:00* Test Item Value Reference Range Interpretation Comments White Blood Count (test code = 6690-2) 9.16 4.8-10.8 [facility]Red Blood Srehx0275-61-32 15:10:00* Test Item Value Reference Range Interpretation Comments Red Blood Count (test code = 789-8) 3.59 3.6-5.1 [facility] HospitalHemoglobin2020-01-05 15:10:00* Test Item Value Reference Range Interpretation Comments Hemoglobin (test code = 51316-7) 11.1 12.0-16.0 [facility] HospitalHematocrit2020-01-05 15:10:00* Test Item Value Reference Range Interpretation Comments Hematocrit (test code = 4544-3) 34.9 34.2-44.1 [facility] HospitalMean Corpuscular Rnybsw0680-22-96 15:10:00* Test Item Value Reference Range Interpretation Comments Mean Corpuscular Volume (test code = 787-2) 97.2 81-99 [facility] HospitalMean Corpuscular Qztjdtrtsc7721-73-48 15:10:00* Test Item Value Reference Range Interpretation Comments Mean Corpuscular Hemoglobin (test code = 785-6) 30.9 28-32 [facility] HospitalMean Corpuscular Hemoglobin Concent 2019-05-19 15:10:00* Test Item Value Reference Range Interpretation Comments Mean Corpuscular Hemoglobin Concent (test code = 786-4) 31.8 31-35 [facility] HospitalRed Cell Distribution Ztapq9957-41-07 15:10:00* Test Item Value Reference Range Interpretation Comments Red Cell Distribution Width (test code = 62164-3) 13.8 11.7 -14.4 [facility] HospitalPlatelet Pqxze2863-53-13 15:10:00* Test Item Value Reference Range Interpretation Comments Platelet Count (test code = 777-3) 265 140-360 [facility] HospitalNeutrophils (%) (Auto)2019-05-19 15:10:00 * Test Item Value Reference Range Interpretation Comments Neutrophils (%) (Auto) (test code = 04591-3) 68.1 38.7-80.0 [facility] HospitalLymphocytes (%) (Auto)2019-05-19 15:10:00 * Test Item Value Reference Range Interpretation Comments Lymphocytes (%) (Auto) (test code = 736-9) 20.0 18.0-39.1 [facility] HospitalMonocytes (%) (Auto)2019-05-19 15:10:00* Test Item Value Reference Range Interpretation Comments Monocytes (%) (Auto) (test code = 5905-5) 7.4 4.4-11.3 [facility] HospitalEosinophils (%) (Auto)2019-05-19 15:10:00 * Test Item Value Reference Range Interpretation Comments Eosinophils (%) (Auto) (test code = 713-8) 4.0 0.0-6.0 [facility] HospitalBasophils (%) (Auto)2019-05-19 15:10:00* Test Item Value Reference Range Interpretation Comments Basophils (%) (Auto) (test code = 706-2) 0.2 0.0-1.0 [facility] HospitalIM GRANULOCYTES %2019-05-19 15:10:00* Test Item Value Reference Range Interpretation Comments IM GRANULOCYTES % (test code = IM GRANULOCYTES %) 0.3 0.0- 1.0 [facility] HospitalNeutrophils # (Auto)2019-05-19 15:10:00* Test Item Value Reference Range Interpretation Comments Neutrophils # (Auto) (test code = 751-8) 6.2 2.1-6.9 [facility] HospitalLymphocytes # (Auto)2019-05-19 15:10:00* Test Item Value Reference Range Interpretation Comments Lymphocytes # (Auto) (test code = 47527-0) 1.8 1.0-3.2 [facility] HospitalMonocytes # (Auto)2019-05-19 15:10:00* Test Item Value Reference Range Interpretation Comments Monocytes # (Auto) (test code = 742-7) 0.7 0.2-0.8 [facility] HospitalEosinophils # (Auto)2019-05-19 15:10:00* Test Item Value Reference Range Interpretation Comments Eosinophils # (Auto) (test code = 711-2) 0.4 0.0-0.4 [facility] HospitalBasophils # (Auto)2019-05-19 15:10:00* Test Item Value Reference Range Interpretation Comments Basophils # (Auto) (test code = 704-7) 0.0 0.0-0.1 [facility] HospitalAbsolute Immature Granulocyte (auto 2019-05-19 15:10:00* Test Item Value Reference Range Interpretation Comments Absolute Immature Granulocyte (auto (kwabena t code = Absolute Immature Granulocyte (auto) 0.03 0-0.1 [facility] HospitalProthrombin Mnsh0859-51-60 15:10:00* Test Item Value Reference Range Interpretation Comments Prothrombin Time (test code = 5902-2) 13.9 11.9-14.5 [facility] HospitalProthromb Time International Ratio 2019-05-19 15:10:00* Test Item Value Reference Range Interpretation Comments Prothromb Time International Ratio (test code = 6301-6) 1.02 Oral Anticoagulant Therapy INR Values:1. Low Intensity Therapy 1.5 - 2.02 . Moderate Intensity Therapy 2.0 - 3.03. High Intensity Therapy(1) 2.5 - 3. 54. High Intensity Therapy(2) 3.0 - 4.05. Panic Value INR > 5.0 [facility] Sipox0918-08-02 14:33:00* Test Item Value Reference Range Interpretation Comments Sodium Level (test code = 2951-2) 137 136-145 [facility] HospitalPotassium Iuxtr9810-86-50 14:33:00* Test Item Value Reference Range Interpretation Comments Potassium Level (test code = 2823-3) 3.4 3.5-5.1 [facility] HospitalChloride Ssyzs7506-66-39 14:33:00* Test Item Value Reference Range Interpretation Comments Chloride Level (test code = 2075-0) 97 98-107 [facility] HospitalCarbon Dioxide Elshj5755-57-58 14:33:00* Test Item Value Reference Range Interpretation Comments Carbon Dioxide Level (test code = 2028-9) 28 22-29 [facility] HospitalAnion Vqh8325-57-42 14:33:00* Test Item Value Reference Range Interpretation Comments Anion Gap (test code = 89198-4) 15.4 8-16 [facility] HospitalBlood Urea Wixptlyn9199-94-32 14:33:00* Test Item Value Reference Range Interpretation Comments Blood Urea Nitrogen (test code = 3094-0) 9 7-26 [facility] HospitalCreatinine2020-01-05 14:33:00* Test Item Value Reference Range Interpretation Comments Creatinine (test code = 2160-0) 0.74 0.57-1.11 [facility] HospitalBUN/Creatinine Qlluu9100-63-53 14:33:00* Test Item Value Reference Range Interpretation Comments BUN/Creatinine Ratio (test code = 3097-3) 12 6-25 [facility] HospitalEstimat Glomerular Filtration Rate 2019-05-19 14:33:00* Test Item Value Reference Range Interpretation Comments Estimat Glomerular Filtration Rate (test code = 512176728) > 60 >60 Ranges were taken from the National Kidney Disease Education Program and the [facility] Foundation literature.Reference ranges:60 or greater: Utimdp29-61 ( for 3 consecutive months): Chronic kidney disease 15 or less: Kidney failureStarr County Memorial HospitalGlucose Ihtsd9988-64-82 14:33:00* Test Item Value Reference Range Interpretation Comments Glucose Level (test code = APK0421) 94 74-118 [facility] HospitalCalcium Zzpyc1678-24-05 14:33:00* Test Item Value Reference Range Interpretation Comments Calcium Level (test code = 43082-9) 8.6 8.4-10.2 [facility] HospitalTotal Slacadisu8455-87-04 14:33:00* Test Item Value Reference Range Interpretation Comments Total Bilirubin (test code = 1975-2) 0.2 0.2-1.2 [facility] HospitalAspartate Amino Transf (AST/SGOT) 2019-05-19 14:33:00* Test Item Value Reference Range Interpretation Comments Aspartate Amino Transf (AST/SGOT) (test code = Aspartate Amino Transf (AST/SGOT)) 16 5-34 [facility] HospitalAlanine Aminotransferase (ALT/SGPT) 2019-05-19 14:33:00* Test Item Value Reference Range Interpretation Comments Alanine Aminotransferase (ALT/SGPT) (test code = 1742-6) 35 0-55 [facility] HospitalTotal Gpkwita1432-09-36 14:33:00* Test Item Value Reference Range Interpretation Comments Total Protein (test code = 2885-2) 6.0 6.5-8.1 [facility] HospitalAlbumin2020-01-05 14:33:00* Test Item Value Reference Range Interpretation Comments Albumin (test code = 1751-7) 3.4 3.5-5.0 [facility] HospitalGlobulin2020-01-05 14:33:00* Test Item Value Reference Range Interpretation Comments Globulin (test code = 95733-2) 2.6 2.3-3.5 [facility] HospitalAlbumin/Globulin Xaoli1598-61-35 14:33:00 * Test Item Value Reference Range Interpretation Comments Albumin/Globulin Ratio (test code = 1759-0) 1.3 0.8-2.0 [facility] HospitalAlkaline Imkiwlfrkuv2693-38-77 14:33:00* Test Item Value Reference Range Interpretation Comments Alkaline Phosphatase (test code = 6768-6) 119 40-150 [facility] HospitalCreatine Gsyhbf2074-21-39 14:33:00* Test Item Value Reference Range Interpretation Comments Creatine Kinase (test code = 2157-6) 45 29-168 [facility] HospitalCreatine Kinase DW2374-91-45 14:33:00* Test Item Value Reference Range Interpretation Comments Creatine Kinase MB (test code = 45256-9) 0.20 0-5.0 [facility] HospitalTroponin D2151-29-80 14:33:00* Test Item Value Reference Range Interpretation Comments Troponin I (test code = CZK4491) 0.004 0-0.300 [facility] FVVMC6434-31-88 14:00:00 [facility] [address] [address] Patient Name: LOGAN MCCRACKEN MR #: [id number] : 1975 Age/Sex: 43/F Req #: [id number] Adm Physician: Ordered by: GERARDO SARGENT PIPE COVERER HELPER Report #: [id number] Location: ER Room/Bed: Procedure: [id number] DX/CHEST 2 VIEWS Exam Date: 05/19/19 Exam Time: 1342 REPORT STATUS: Signed EXAMINATI ON: CHEST 2 [...] BENSON on 05/19/191401 COPY TO: GERARDO SARGENT PIPE COVERER HELPER CHEST 2 PFAPV9225-43-57 18:35:00 [facility] [address] [address] Patient Name: LOGAN MCCRACKEN MR #: [id number] : 1975 Age/Sex: 42/F Req #: [id number] Adm Physician: Ordered by: AURELIO ESTRELLA PIPE COVERER HELPER Report #: [id number] Location: ER Room/Bed: Procedure: [id number] D X/CHEST 2 VIEWS Exam Date: Exam [...] ANUSHKA on 1835 COPY TO: AURELIO ESTRELLA PIPE COVERER HELPER HMPKXSXQDJ2725-10-34 11:12:008MH RbpztjkhiXCGFTRYHQG3433-86-35 11:12:00<2.9MH [facility] 2016-07-13 11:09:0033.4MH UtlwqjqicPERWDMXUOZ9156-66-31 11:09:009.1MH [facility] OHSBIXVZBC4979-14-87 11:09:0015.9 MvenrurrzXRBBHKJUJX1550-40-83 11:09:86123JD UmkeagocsDHWFBOYJFB3508-37-93 11:09:006.0 YalzvhreeZKBKFGMYTZ8768-81-13 11:09:00* Test Item Value Reference Range Interpretation Comments MCH (test code = MCH) 30.8 pg 27.0-31.0 SufblwkxoIFLJBJELTV5799-62-78 11:09:0035.7 KhjbbvzxoGLADIGRXSF0577-91-66 11:09:0092.3M KbbremantZLHMWJKODC5791-01-18 11:09:0011.9 [facility] 2016-07-13 11:09:003.86 GzvmkyudbKHTPBSQTMB3542-47-71 11:09:000.1[facility] LIURMRNRNF9041-23-44 11:09:000.8 EzerbxeprOBYRYIQYKV7430-55-29 11:09:008.8 VijkxajeeFIPYFHNUIJ0471-25-89 11:09:008.6M TilcozhliMQLONOEBFI7601-23-28 11:09:0038.1M GjdybzuhaMSCDJQEIJO3546-07-15 11:09:0043.7 [facility] 2016-07-13 11:09:000.5 FasylqxgkRAHTTIXUXC7327-70-21 11:09:000.5[facility] YDNCYBQXDP4505-70-17 11:09:002.6M FbyuufyeaCQSWJQMUWC1180-93-24 11:09:002.3M [facility]CHE[facility] TPXWK9246-77-53 10:47:30730GE SoutheastCHEM TEUIU3298-91-75 10:47:95241EN [facility]CHEM GDFTL2589-57-40 10:47:0018 [facility]CHEM PANEL 2016-07-13 10:47:008.6M [facility]CHEM WNGUB0672-02-25 10:47:0086MH [facility] DNICQ2337-40-67 10:47:003.7 [facility] BKUXX0447-21-15 10:47:0064 [facility] TLMXZ3474-88-97 10:47:0029MH [facility]CHEM VAKPF8385-79-55 10:47:006.7 [facility] BTXQJ1208-71-13 10:47:0010.3M SoutheastCHEM PANEL 2016-07-13 10:47:00<0.1MH [facility]CHE[facility] AWQZA1620-16-58 10:47:0023MH [facility] CHE[facility] RKZZE4158-88-17 10:47:003.0MH [facility]CHE[facility] MPWXA4366-61-10 10:47:001.2MH [facility]CHE[facility] CZXCS8473-17-28 10:47:83966WO [facility]CHE[facility] RFOCO1437-78-48 10:47:004.3MH [facility]CHE[facility] FHABM3840-64-61 10:47:64017IH SoutheastCHEM PANEL 2016-07-13 10:47:000.71MH [facility]CHEM BJFGN6459-89-14 10:47:0016MH [facility] CHE[facility] IYBSH9732-57-32 10:47:0087MH SoutheastURINE AND IEWJQ9475-50-48 10:47:00 Clear (07/13/16 4:47 AM)MH [facility] JDZQK7952-54-84 10:47:00Yellow *NA*(07/13/16 4:47 AM) [facility] IUPCV9186-20-10 10:47:005.0 [facility] UEKZK2792-60-10 10:47:00Negative *NA*(07/13/16 4:47 AM)MH [facility]UR[facility] AND LLAIZ2513-76-30 10:47:001MH [facility] STOOL 2016-07-13 10:47:00Small *ABN*(07/13/16 4:47 AM) [facility] STOOL 2016-07-13 10:47:00Negative (07/13/16 4:47 AM) [facility] STOOL 2016-07-13 10:47:005MH [facility] OTUIB2064-59-23 10:47:003 [facility] URINE AND VRPPE3156-32-17 10:47:001.012 [facility] LAVYB3940-16-37 10:47:00Negative (07/13/16 4:47 AM) [facility]URINE VLZV8797-38-38 10:47:00 Negative (07/13/16 4:47 AM) XcusjyfmnBHIGOZDFHY6914-41-50 10:05:0016.4 WmpwkvgqbAXMITVQUCR6356-19-18 10:05:008.6MH TgchxnfvoNPZORZJUXP3978-32-99 10:05:40913UG FnwcwunomCRETGXKUIC5394-39-78 10:05:0033.0 [facility] 2016-05-10 10:05:00* Test Item Value Reference Range Interpretation Comments MCH (test code = MCH) 29.9 pg 27.0-31.0 OzpgivcbaGUKWBYTFMG0908-44-55 10:05:0090.7 OcisqiogaFIANMNDVIH7561-62-13 10:05:0028.2M AzumiygwkFSHXLZQXOT6137-74-44 10:05:009.3M [facility] 2016-05-10 10:05:003.10 TzvmrlbwvRLABATMUUK3036-06-47 10:05:0010.2M [facility] OCRTRDXXFN1421-68-59 10:05:001.2M HusyjrxihNNPLTGLREC3818-84-77 10:05:000.7 BetbserxoYBJNJHABIM2441-09-32 10:05:002.0 HlewrjueiJIMMEJEDBX1525-76-44 10:05:007.2M LcnwarwmrEHELUOAVJL1255-42-48 10:05:0070.1M [facility] 2016-05-10 10:05:008.1M OiudaamxlLEHHYIVQFE3222-27-56 10:05:0019.9 [facility] VBSDGDMOGI5408-48-65 10:05:000.8 UbmwxltccFSGMKJYIFV6140-31-84 10:05:000.1M WeufydaibXDJSBFZWXN5545-67-72 10:05:000.1M [facility] BHIYY3815-88-28 13:00:001.1MH [facility] VZWFF0559-28-88 13:00:002.6MH [facility]CHE[facility] PANEL 2016-05-05 13:00:0011.8 [facility] TFWHQ5544-95-80 13:00:0012 [facility] CHE[facility] KIFHT4431-82-48 13:00:83047XY [facility]CHE[facility] TDNNY6406-63-50 13:00:008MH [facility]CHE[facility] BAHUG1266-31-62 13:00:000.1MH [facility] NDXOI3508-44-76 13:00:0065 [facility] EKSLP2920-19-19 13:00:0043MH SoutheastCHEM PANEL 2016-05-05 13:00:005.4MH [facility]CHE[facility] BJAAH9901-28-45 13:00:002.8 [facility] CHE[facility] TGHQH9006-98-60 13:00:30598ZO [facility]CHEM YEXZB5548-20-68 13:00:0029MH [facility]CHE[facility] QYSZX0233-37-60 13:00:008.0 [facility] XYHRU7854-53-09 13:00:003.8 [facility] AQJDZ1868-25-96 13:00:30288FD SoutheastCHEM PANEL 2016-05-05 13:00:008 [facility] KBRUU8895-95-65 13:00:000.66MH [facility] CHE[facility] HIOEF7852-40-68 13:00:0076 JzzuroqmxXYZTZFAYJC7783-36-13 13:00:0047.1MH VsbrilavjHNLKVHVZGA4500-20-89 13:00:0038.2M PdghkmixyFZNTHCZTTL3318-43-45 13:00:002.0 QwgpmbblsBOKENJZDFE1596-55-09 13:00:000.4 [facility] 2016-05-05 13:00:002.5 PtlsubfmeKZNLYFXELE3190-16-45 13:00:000.4 [facility] KCSUFYHHJI3075-86-07 13:00:007.0 GqhdcjoerLHQPWWQUCL4766-58-56 13:00:000.9 XflyicfdwSABHGNXFNT7703-80-78 13:00:006.8 RhcpqzzcmPVHINIBAYO4213-31-32 13:00:00* Test Item Value Reference Range Interpretation Comments MCH (test code = MCH) 29.5 pg 27.0-31.0 HkpbstkxlSOHRGDNZIL6223-55-90 13:00:0024.6MH UlszkoxxrUIVBXCSYDE9246-00-28 13:00:0090.3M NpxwdhzaxNKGGRJRXBN8097-11-92 13:00:002.73 [facility] 2016-05-05 13:00:008.1M PbvcykmurGAJLFSCMOC9214-76-60 13:00:0015.8[facility] JUFEINBZRO3086-01-73 13:00:0032.7 WdivccjbrTIYZJSFSUX4826-71-85 13:00:008.8 LvkrnqsukMZAJLKRSGM1991-14-98 13:00:54492JA IjatostdnTJUKGSTEXA5037-21-87 13:00:005.3MH SsuknfprqCDAIVEDOGD5787-87-64 07:31:00* Test Item Value Reference Range Interpretation Comments PTT (test code = PTT) 28.5 s 22.9-35.8 WihrookthGIVUNTCVBF0936-41-94 07:31:000.93 XyqdbasplSHPGKXIBMN8853-35-22 07:31:00* Test Item Value Reference Range Interpretation Comments PT (test code = PT) 12.7 s 12.0-14.7 [facility]CHEM PQJRY6498-91-24 05:10:29437NY SoutheastCHEM ZRADE3034-95-33 05:10:94780IL [facility]CHEM ENBUJ6005-52-63 05:10:0064MH SoutheastCHEM PANEL 2016-04-30 05:10:00<0.1MH [facility]CHE[facility] OEDDS7117-15-04 05:10:0020MH [facility] CHE[facility] XZDTE8327-73-39 05:10:008.0MH [facility]CHEM WLJMG3317-70-48 05:10:0028MH [facility]CHE[facility] UQFKD8697-40-38 05:10:88632MZ [facility] CCBDT7968-48-60 05:10:004.1MH [facility] DTGNY0425-84-62 05:10:0056MH [facility]CHEM PANEL 2016-04-30 05:10:003.1MH [facility]CHE[facility] OIDDA3552-76-20 05:10:006.1MH [facility] CHE[facility] NMALJ8101-43-08 05:10:85560HA [facility]CHE[facility] GIXXF1527-99-42 05:10:000.74MH [facility]CHE[facility] NNOAU2817-85-84 05:10:0019MH [facility]CHE[facility] JNDTT6439-49-24 05:10:0078MH [facility]CHEM DOHLI8275-50-20 05:10:0012.1MH SoutheastCHEM PANEL 2016-04-30 05:10:0026MH [facility]CHEM BKRLT9891-87-67 05:10:003.0MH [facility] AQATR3536-85-57 05:10:001.0MH SthvhzyiwPSCVOTZGMSUQP1086-12-75 05:10:002MH AxyrprdgwFHRKQMNXFG9098-71-04 05:10:000.1MH YxvmoqqweCUEEDWWWVR1954-32-08 05:10:000.2MH LhalmpnzcHZVYCOYBZW9323-91-37 05:10:000.6MH [facility]HEMATOLOGY 2016-04-30 05:10:002.0MH KtgkgpyukUHWKDEFJKU9304-64-94 05:10:0031.6MH [facility] VJNBQIXCBZ7810-65-30 05:10:003.4[facility] HospitalUzbrzaffnEXRCKSUXLL3756-08-37 05:10:009.3MH AxivnikndMJYXYSTZCX0013-94-75 05:10:003.5 OqhuprvmqZMQLLHFZBI8155-27-43 05:10:001.2M OwfotyjxkAZQBWCPGSA3950-80-82 05:10:0054.5[facility]HE[facility] 2016-04-30 05:10:003.30 YlufxxkkwPMSDDKHNUS3356-16-93 05:10:006.4[facility] GOUZUWHVTJ2286-09-64 05:10:0029.9 WowvkqhpaURGJUXWAMF6924-53-48 05:10:0090.6MD[facility] Cancer InstituteQxfenpellQIMLHOEGGX3131-27-63 05:10:009.8 EvixuaejaMRRGZXIUAJ6535-94-07 05:10:008.5 JpylkupllXAIPKIETJY6628-66-80 05:10:17677XT [facility]HEMATOLOGY 2016-04-30 05:10:0015.6M GbqugeggbWCYIMSEOIB1578-35-35 05:10:0032.9[facility] BMUDILWZAV7119-33-38 05:10:00* Test Item Value Reference Range Interpretation Comments MCH (test code = MCH) 29.8 pg 27.0-31.0 [facility] AND VZIEM4056-29-50 02:56:31Trace *ABN*(04/29/16 8:56 PM) [facility] LPPHU0215-88-46 02:56:311 [facility] STOOL 2016-04-30 02:56:315MH [facility]UR[facility] AND ELZDJ9380-99-33 02:56:317.0 [facility] AIYAI0929-33-60 02:56:311.014 [facility] STOOL 2016-04-30 02:56:31Marked *ABN*(04/29/16 8:56 PM) [facility] STOOL 2016-04-30 02:56:31Yellow *NA*(04/29/16 8:56 PM) [facility] STOOL 2016-04-30 02:56:31Negative (04/29/16 8:56 PM) [facility] STOOL 2016-04-30 02:56:31Negative (04/29/16 8:56 PM) [facility] STOOL 2016-04-30 02:56:31Negative *NA*(04/29/16 8:56 PM) [facility]CHEM PANEL 2016-04-12 03:18:0090MH [facility]CHEM GRPWD3997-86-64 03:18:009MH [facility] SMEBX5948-02-04 03:18:0028 [facility] NCFGG6801-82-36 03:18:0060 [facility]CHE[facility] DRAXI8407-54-78 03:18:000.2MH [facility] XOAZW0482-62-09 03:18:008.8 [facility] YDXGU9111-77-90 03:18:0027 [facility]CHEM PANEL 2016-04-12 03:18:10648YD [facility]CHEM EFIXF0047-84-95 03:18:000.82MH [facility] CHE[facility] NBJZY4278-65-97 03:18:0096[facility]CHE[facility] FZVCU1407-62-12 03:18:0017[facility] HospitalCHEM PGZJX2871-40-84 03:18:91351KIHeywood HospitalCHEM WLDAC0890-53-68 03:18:004.0[facility] HospitalCHEM KYRJW8901-62-17 03:18:006.7[facility] PANEL 2016-04-12 03:18:003.6MH [facility]CHE[facility] LLWAI5736-60-17 03:18:001.2MH [facility] CHEM YPUZF4708-68-17 03:18:0021[facility]2016-[facility]-29 03:18:003.1MH [facility] HospitalCHEM JPHEJ3726-71-97 03:18:0013.0[facility] HospitalGijsckbuiVIYPGHTWBENKY6716-94-07 03:18:00Negative *NA*(04/11/16 9:18 PM)[facility] HospitalNzzyvjexgMISMLOSKID4363-20-09 03:18:00 * Test Item Value Reference Range Interpretation Comments MCH (test code = MCH) 29.6 pg 27.0-31.0 BdeufzsbwRPPQEAPWPI0766-06-35 03:18:0032.9 QsrwgdybxIWCGICGIOH7685-39-46 03:18:0089.9[facility] HospitalQajozsocuEEOZCRLYLY9852-99-64 03:18:0030.8 [facility] 2016-04-12 03:18:34297XR AwnmvdelgLOROUAIXOX1539-42-15 03:18:008.7[facility] GQCDLWMNFR6614-50-84 03:18:0015.4 BtjuhopzqYTZONEOWIL6290-75-65 03:18:003.43 ZektoqxbkIBUOEOVDQI2401-72-37 03:18:007.1M IgrryrxghLCZXCZFMWQ7321-46-40 03:18:0010.1M GrmtahfiuUFLUDKQYDU5136-10-33 03:18:00* Test Item Value Reference Range Interpretation Comments PTT (test code = PTT) 23.9 s 22.9-35.8 HsxocqvtdEDEMNVKYID2779-28-16 03:18:000.93 QwvsaxkjqUVGHJLUVIQ0184-81-47 03:18:00* Test Item Value Reference Range Interpretation Comments PT (test code = PT) 12.7 s 12.0-14.7 SbkznvpsoDRBTWXKNPO9948-24-25 03:18:000.5 HlwrzuqrgOURYFRPVLX6541-93-13 03:18:000.1M IgisdbsnzTBNRGKLZDE2421-70-30 03:18:001.1M [facility] 2016-04-12 03:18:004.3M CmnfucvyfZVPYFCDOYT0994-40-09 03:18[facility] ZPAAUSFUQO2928-43-87 03:18:000.6M ChdsfozamRVNIXEPKBF7622-28-67 03:18:007.4 ZakjypbztBUEPHISLWY6163-23-98 03:18:0029.9 BvanjvimyZNHUKTKPKZ5590-85-47 03:18:0061.0 [facility] QNDIQ5087-11-71 03:04:009 [facility] YEVBP4014-36-84 03:04:0060 [facility] KRMFF2375-15-38 03:04:002 [facility] VLXVF0591-57-24 03:04:001.012 [facility] STOOL 2016-04-12 03:04:00Clear (04/11/16 9:04 PM) [facility] RHXMC5576-47-27 03:04:007.0 [facility] QUAVY8198-01-07 03:04:00Negative *NA*(04/11/16 9:04 PM) [facility] VNQLL3102-33-50 03:04:00Small *ABN*(04/11/16 9:04 PM) [facility] CDVMX3954-21-40 03:04:00Negative (04/11/16 9:04 PM)[facility] IXQQO9564-75-83 03:04:00Negative (04/11/16 9:04 PM)[facility] AVSCN5493-18-37 03:04:008MH [facility] STOOL 2016-04-06 06:00:00Negative (04/06/16 12:00 AM)[facility] STOOL 2016-04-06 06:00:00Negative (04/06/16 12:00 AM)[facility] STOOL 2016-04-06 06:00:00Negative *NA*(04/06/16 12:00 AM)[facility] STOOL 2016-04-06 06:00:00<1MH [facility] ICGJP9331-64-93 06:00:00<1MH [facility] JSHGI0068-50-78 06:00:00Trace *ABN*(04/06/16 12:00 AM)[facility] KIRTP6628-14-94 06:00:008.0MH [facility] STOOL 2016-04-06 06:00:001.003MH [facility] RHOSC4329-39-51 06:00:00Clear (04/06/16 12:00 AM) [facility] UKXIT6902-46-29 02:21:82035JL [facility] ABZND4739-10-21 02:21:0037 [facility] ZNCPE6113-23-03 02:21:003.4MH [facility] ELVCK6443-68-28 02:21:001.2MH [facility] BVEZV7919-97-88 02:21:0021 [facility] LIAEQ8656-76-58 02:21:0011.0 [facility] PANEL 2016-04-06 02:21:42609YW [facility] EFLCG5952-56-87 02:21:007.6MH [facility] DFJQI7818-39-13 02:21:004.2MH [facility] IQWMY0267-33-00 02:21:0030 [facility] GHLYT9899-68-93 02:21:0010 [facility] PASHJ1643-68-02 02:21:009.1MH [facility] YSNRW2895-14-05 02:21:0075 [facility] PANEL 2016-04-06 02:21:000.3MH [facility] YDOLJ4556-91-53 02:21:90696XQ [facility] NEAPW8828-69-41 02:21:004.0 [facility] QETYQ3945-72-68 02:21:0030 [facility] VSAMD7343-91-71 02:21:91559TF [facility] BJCEN9430-18-10 02:21:0013 [facility] QAHGB7112-11-36 02:21:000.63 [facility] PANEL 2016-04-06 02:21:0093 [facility] WNWAB2131-45-61 02:21:003.2M [facility] NZOCQ1570-22-64 02:21:002.7[facility]wdcHYYVNJPWBTDXV0527-75-95 02:21:00 Negative *NA*(04/05/16 8:21 PM) ZqrmrllxzCHKSRCOTQQ1577-63-62 02:21:0013.3M FyajsqbbjZZBBIKFJAP2646-63-32 02:21:0082.4 IqlibahabJBIHBISEHI9714-40-33 02:21:008.6M BlxidwuuiLVAUGWDLEN6864-33-18 02:21:000.2M [facility]HEMATOLOGY 2016-04-06 02:21:004.[facility] NmcbnlsreWAQVYNQNQH4234-10-93 02:21:000.4[facility] PKHQLGFJQD9886-28-37 02:21:001.[address] [place], [place] [address]UleuxhcceXRQEGAHIEJ3278-24-84 02:21:86143JJ LjmjmngfqOQKEIUQSBE1822-54-35 02:21:008.8 XjmpbybdlNDMLVTMKLS2479-06-22 02:21:0015.9 ObyxtavlnVFTSVTJLKC3794-70-79 02:21:00* Test Item Value Reference Range Interpretation Comments MCH (test code = MCH) 29.4 pg 27.0-31.0 LkbucwxygRIZPHJALKZ1060-17-50 02:21:0032.4 IhimxnqizTXBESTIXBP3384-74-95 02:21:0033.5 DgelwfeaoNOXYGPMYGA7256-54-46 02:21:0090.6M [facility]HEMATOLOGY 2016-04-06 02:21:0010.9 FstiqvuzuWSSFFCAZHR6864-71-44 02:21:0010.4MH [facility] KFUZUUIBEH0806-43-51 02:21:003.70MH SoutheastURINE AND KPQAE2297-24-61 01:29:004 MH [facility]UR[facility] AND DOEMG6777-78-18 01:29:33738FI [facility]UR[facility] AND STOOL 2016-03-03 01:29:0017MH [facility]UR[facility] AND LZOAH9075-63-72 01:29:001.011MH [facility] AND RHFYH8444-85-86 01:29:00Slight *ABN*(03/02/16 8:29 PM)MH [facility] ZABHC6385-89-76 01:29:00Negative (03/02/16 8:29 PM)[facility] SKLHG7987-83-78 01:29:00Negative *NA*(03/02/16 8:29 PM)[facility] IGOJC8787-18-13 01:29:005.0 [facility] STOOL 2016-03-03 01:29:00Large *ABN*(03/02/16 8:29 PM)MH [facility] STOOL 2016-03-03 01:29:00Negative (03/02/16 8:29 PM) [facility] YQAGD0092-82-82 00:34:24907SQ [facility] HIKGE3958-56-96 00:34:0023MH [facility]CHEM PANEL 2016-03-03 00:34:007.1MH [facility] MVGHH8809-65-54 00:34:008.8MH [facility] GEJOG8707-43-33 00:34:18856MA [facility] JSQJJ7440-04-48 00:34:000.61MH [facility] EJJNJ2037-50-60 00:34:25702SZ [facility] AMMXJ4556-31-20 00:34:004.0MH [facility] RFNGK5978-18-92 00:34:0017MH [facility]CHEM PANEL 2016-03-03 00:34:0084MH [facility] PMSMK8338-02-36 00:34:00<0.1MH [facility] QRBEC6242-99-74 00:34:001.1MH [facility] IUMZN2918-15-66 00:34:0035MH [facility] HCWYC5339-13-84 00:34:003.7MH [facility] TSDUJ9740-74-55 00:34:0013.0MH [facility] VSQGT9341-41-94 00:34:003.4 [facility] PANEL 2016-03-03 00:34:0028MH [facility] YKZEG9626-25-49 00:34:0013MH [facility] KHWWQ9274-79-02 00:34:0099MH [facility] FHTVK2950-24-98 00:34:0046MH [facility] MIWIO3507-11-38 00:34:85333ZU [facility]M UOIIZ8833-94-64 00:34:000.1MH XwrqyvuqcIZDNORSUUR9845-12-71 00:34:66300RC [facility]HEMATOLOGY 2016-03-03 00:34:009.3MH TjdpasapbOZNWQLOCHP3052-32-84 00:34:0015.1M [facility] VEUYDSUHLT4334-82-60 00:34:006.1MH HnhysrbfnUSDHXYYAGN5291-80-35 00:34:003.68MH HralbtzzvWQQZMEACAU7398-01-31 00:34:0033.8 WqruerbesMORLQPIMWG6695-88-75 00:34:0091.6MH AeoyrlenmAFUIIWFWOY5988-74-21 00:34:0011.2M [facility]HEMATOLOGY 2016-03-03 00:34:0033.3M HmtltaihaWVMGRBSXDK8547-58-68 00:34:00* Test Item Value Reference Range Interpretation Comments MCH (test code = MCH) 30.5 pg 27.0-31.0 HsmhcqpemQMBIGVLXYS2347-34-16 00:34:000.5 CzwzhtsscLKBSWBLSKX3893-89-04 00:34:000.2MH YrtmotgjeHXMPNYQUWX6374-89-20 00:34:000.1MH [facility]HEMATOLOGY 2016-03-03 00:34:002.7 BeyeczpbpGEHJAZNQAU2042-29-30 00:34:000.9 [facility] CXYJQTBSYA0283-85-18 00:34:002.6M DwbqymqguCTIUGHMXCD0775-05-83 00:34:008.3M WasuankpqHZMEJGHPVO7355-48-76 00:34:0043.4 RvkugzdixDSNRHCXWJZ0345-36-29 00:34:003.5 NjelntgpuDQCLXCFAAV5049-00-10 00:34:0043.9 SoutheastELECTROLYTES 2014-09-26 10:51:44196UA KqxjhvknuRTVPAKLBBCTY5879-37-40 10:51:01349MT [facility] TKOVKEDFJWCY5597-37-07 10:51:003.5 MoqxzdiyoCSYNGPMYXBEP9680-11-18 10:51:32319 UkoewodosBVGBLIFMTKXL2587-18-86 10:51:0082 ZcezcrahrEPIORKZULJDR6392-79-12 10:51:0027 OmubnoodkQAMVWYIUNXBF4454-21-64 10:51:000.7 SoutheastELECTROLYTES 2014-09-26 10:51:0012.5 EsbduhomsQUQSPMZPMHKM7242-32-65 10:51:007.9 VhyiqlujeTPANVXPRLSAI5115-23-33 10:51:006 BomqtugjyILYPBTYGVLVS2711-50-27 15:02:97952PK JlclmqtawDWYQEERSZNGY7749-41-31 15:02:94909HE [facility] WYHVZRHWZFPW6174-17-86 15:02:004.1M HyyfnlzigWLPNDLPZFJNY7705-46-63 15:02:0094 NkobqtdyhNIVENZRWOMQW2177-40-88 15:02:0029 LwsntlybvVGLEXQCIOBPY2302-57-36 15:02:000.3MH OufdzvithRBWLEEEDCIWG5213-25-68 15:02:57230BW [facility] FIAUPIVZXRPD8597-14-27 15:02:003.4 ChkjktmfmHMBNHUEORAIE3434-17-80 15:02:81504 VsqmxmnifNGUFNBWEQSTT0368-50-47 15:02:005.6MH TboxkptbfIURVGFESRBXV0389-25-28 15:02:008.3M YaysfdhjpMQNPXGYJGYOK6691-15-46 15:02:004 SoutheastELECTROLYTES 2014-09-23 15:02:0062 VgfbcxazrXOJKAFNIAXSC0061-73-65 15:02:000.8 [facility] CMZPFFJCHYNT8181-33-35 15:02:0029 PnxuvazuuZGWNKGUARVBI1365-83-16 15:02:0012.1 LzhzqozcjZFEVZERMTVFK8264-49-12 15:02:001.5 HwzwonooiAEZHJIQHLKRX6811-18-17 15:02:005 UmyhumtedTTOZOTYFDXUI0059-43-49 15:02:002.2MH [facility]HEMATOLOGY 2014-09-23 15:02:000.7 FpocifsroSWZHSBIUOT3396-61-17 15:02:000.3MH [facility] YBWJDEREUQ4917-98-07 15:02:001.5 OmfullahiAOPZTMIFDL7725-35-79 15:02:000.9 IdwsikioiMRCZMIBHNF5912-48-47 15:02:0017.0 DmgtemvbzQEDKOOIEUQ4035-08-27 15:02:001.4 XvzlxlxwiGGCLBWNGYH0028-71-13 15:02:007.9 [facility]HEMATOLOGY 2014-09-23 15:02:0038.1MH JutknbxfuOAMVSHBBKQ2952-80-86 15:02:0036.1MH [facility] YJWAWBYFGF6995-90-37 15:02:00* Test Item Value Reference Range Interpretation Comments MCH (test code = MCH) 32.1 pg 27.0-31.0 NpurvisosSNSCYMDEIC3999-97-85 15:02:0033.5 NpelkkyknKZYUIYZQER9632-34-01 15:02:0095.9 MglkzdmfgATHHISOLMC2921-40-79 15:02:84767SZ [facility]HEMATOLOGY 2014-09-23 15:02:0013.5 UdxudzciqKTLPRXSGKE1906-88-26 15:02:0036.0[facility] PLKBARHGVO5095-74-53 15:02:0012.0 AwuvfwdjcWRVHZNWFWJ7228-93-66 15:02:003.75 YxogwyrweTXHHFOMTMQ6703-70-57 15:02:0010.2MH JuusibneuPCTNHNHRPU6062-65-59 15:02:003.8 OmtcrmgahAAMOHGIZIJAG8769-52-79 09:38:0012.6M [facility] DYPFNLSYAWGK2618-17-67 09:38:001.3M OnsfgptflMGBLSFAZHUIK4957-26-45 09:38:004 NbxaawjcpINREXWZYFPJZ9138-27-67 09:38:002.2MH DvxnvfotdRABYFPMSUGBL4826-11-77 09:38:003.6M FpeucdcxhRSIUSVWPTZTF8295-76-20 09:38:62968QE [facility] FGJGBFGBKCXU6418-80-71 09:38:008.0 PdxdvxlxlHJYHDELPXVBT5358-51-33 09:38:000.8 YghgvhvjvZQDKLFDLFYJA4003-78-44 09:38:10033AH DwnszumfhQIZNLKLTQGDP5363-45-90 09:38:0094 WxrtpiejgYJTKQPOYXXTX9303-36-78 09:38:000.3MH SoutheastELECTROLYTES 2014-09-19 09:38:79370NU CpxwdzjngLMGAFOAXXLMT5779-16-23 09:38:0032MH [facility] SSLRJHTFLOGH2576-02-50 09:38:005.1MH ExdnbnudtAEJLRIUSFKAY9647-92-25 09:38:002.9 NbfcfltcpXPQGYUGHNRQS6229-67-58 09:38:0024MH QvdblgonzFGTNIIWBSMND9604-85-10 09:38:58185UL WdumvgsepEKKVQCKPOOFR9183-22-28 09:38:0097 SoutheastELECTROLYTES 2014-09-19 09:38:003MH TnlgczrbdNHKDCVNRRW4546-31-04 09:38:0011.0MH [facility] QLFGXOAEGA9882-91-22 09:38:003.41MH TlzzrggbhPPHRUYOECK6955-72-35 09:38:0096.2MH FwazgowpwAEHUYYJUKX7725-59-78 09:38:0032.8MH RtiuasangLIKKTDIASW2615-71-10 09:38:00* Test Item Value Reference Range Interpretation Comments MCH (test code = MCH) 32.4 pg 27.0-31.0 YbfcypanfPHKMDAVXGQ9005-75-74 09:38:0014.0 VbuygowujFTWACRDNEX7624-54-38 09:38:0010.5 LnqsviibhQDAVCMSYLI5122-73-77 09:38:0033.7 [facility]HEMATOLOGY 2014-09-19 09:38:75742KJ XtxwpofwqFRIANPYDXQ5350-66-86 09:38:004.1MH [facility] RAXLWSPSYG4142-54-93 09:38:0051.5MH FrpntpnloPQTXNHJCZZ1210-22-38 09:38:0027.2MH GxdvfxxepFXWNDNDBKI7459-77-01 09:38:000.6MH FsnewmnarRBUSECLLSS4823-68-90 09:38:0013.5 NrmcilvcoTYHDEJLUHZ2145-66-95 09:38:002.1M SoutheastHEMATOLOGY 2014-09-19 09:38:000.3MH TubobxtruCULZZCSPPH9540-62-67 09:38:000.6MH [facility] XAQYVCKGYD3977-80-75 09:38:007.2M WjjpzhwjhYBEZZMDBEG7271-30-21 09:38:001.1M SoutheastCHEM TILWG7396-21-28 19:56:003.4[facility] AEMPD1159-10-33 19:56:002.4[facility] TBSHM3382-08-79 19:56:001.4 [facility]18 [facility] MDBHG8006-16-31 19:56:0051 [facility] CHE[facility] BIWVH2335-89-45 19:56:005.8[facility] EUKET0103-53-83 19:56:14621[facility] FBIYZ0053-00-53 19:56:000.2MH [facility] ZQVEH0659-97-29 19:56:005[facility] HospitalFqmdelswaMFBWDCPUCT6320-68-16 10:00:007.1M SoutheastHEMATOLOGY 2014-09-16 10:00:0016.2M FzttxouiyBVPVBGHLKB9149-32-82 10:00[facility]000.3[facility] NXZODYANSG5370-53-48 10:00:000.8 WdbvzbmlmZFIBLVBRVC9390-25-40 10:00:0015.0[facility] HospitalBqccbizcfDUGPFGFWMJ5925-89-56 10:00:0060.9[facility] HospitalPjlayfqeuTZCQMGYRUD8259-09-16 10:00:002.5[facility] HospitalGhigwltgmUQEHFDBVQN0867-04-93 10:00:000.7 [facility]HEMATOLOGY 2014-09-16 10:00:000.6M GwkqspwbjOBUTPWUALG3828-52-86 10:00:00Normal (09/16/14 5:00 AM) TqzqrtdrfYXMNRQKWJT3732-40-79 10:00:00Normal (09/16/14 5:00 AM) PezivrwhkJADLOEEZWL8875-27-54 10:00:68339ZU KzpyyisucKBOZJRUAPH3693-96-02 10:00:0013.9 QtzyiulneTIKCYYFUBI9762-95-03 10:00:003.42 [facility]HEMATOLOGY 2014-09-16 10:00:0032.9 EazlkupgpNQONKZUINI5754-74-28 10:00:0011.1[facility] BMAZWVFFQK4631-11-41 10:00:00* Test Item Value Reference Range Interpretation Comments MCH (test code = MCH) 32.3 pg 27.0-31.0 WstzudreoRSHUCVEYMP1235-94-29 10:00:0033.6M KrysxdughEAKDTAJCWI0537-64-88 10:00:0096.2M AeyxemelwUNDKOGHQEY2440-46-09 10:00:0010.9 [facility]HEMATOLOGY 2014-09-16 10:00:004.2M SoutheastCHEM HTUUP3862-52-08 11:17:47816NB [facility] CHE[facility] RIWEZ6953-56-97 11:12:001.8 [facility]CHEM JOEFU1685-91-46 11:12:003.9 NrfjfffgrVMDXXECRVE5164-90-13 11:12:00* Test Item Value Reference Range Interpretation Comments PTT (test code = PTT) 31.6 s 22.9-35.8 ZlcdpntamWYVMERDINX4278-19-72 11:12:00* Test Item Value Reference Range Interpretation Comments PT (test code = PT) 14.2 s 12.0-14.7 KpwkomfitJYTMZZZGDF3086-60-40 11:12:001.09 [facility] 2014-09-14 04:03:02012WB SoutheastCHEM HEKBT5249-17-23 04:03:001.9 [facility] CHE[facility] COWJJ5599-01-28 04:03:74663UO SoutheastCHEM AXIUC9632-55-45 04:03:003.0 [facility]CHEM LXELT1538-97-71 04:03:0043 SmnwgdcfuQWKIJUCMDN7963-76-39 04:03:000.97 CjbcvzsfrIFMLKZNEUN1738-83-72 04:03:00* Test Item Value Reference Range Interpretation Comments PT (test code = PT) 12.9 s 12.0-14.7 ZzzskllyoNYCZYBSLWB4827-77-91 04:03:00* Test Item Value Reference Range Interpretation Comments PTT (test code = PTT) 33.0 s 22.9-35.8 MH SoutheastURINE AND UGSLZ4736-46-01 04:03:00Negative (09/13/14 11:03 PM)MH [facility]UR[facility] AND YRROA4782-98-03 04:03:00Negative (09/13/14 11:03 PM)MH [facility] AND BHUEB3805-29-04 04:03:00Negative *NA*(09/13/14 11:03 PM)MH [facility]UR[facility] AND QRSKZ0518-93-31 04:03:00Negative (09/13/14 11:03 PM)MH [facility]URINE AND YANYX9713-24-82 04:03:005.0MH [facility]UR[facility] AND STOOL 2014-09-14 04:03:001.020MH SoutheastURINE AND IFLNH4169-06-85 04:03:00Clear (09/13/14 11:03 PM)MH IhbblfkbqSYFURZSNGXBXG6638-06-73 13:31:464MH SoutheastCHEM IYZWW6879-89-67 13:31:0014MH SoutheastCHEM YETQU5305-58-65 13:31:001.1MH [facility]CHEM ODCVY3501-03-01 13:31:003.0MH [facility]CHEM LNVZM5721-11-08 13:31:007.9MH [facility]CHEM FOVAJ0678-69-59 13:31:0094MH SoutheastCHEM PANEL 2013-12-16 13:31:00<0.1MH [facility]CHEM JZIJV2967-60-10 13:31:22564HV [facility] CHEM ZOVIY0416-12-21 13:31:006.4MH [facility]CHEM ETYMJ0317-71-85 13:31:003.4MH [facility]CHEM DQAOW3520-63-61 13:31:000.8MH [facility]CHEM APQLK5681-12-37 13:31:0011MH SoutheastCHEM WRYGB0237-46-01 13:31:81045CC SoutheastCHEM PANEL 2013-12-16 13:31:07211LR SoutheastCHEM GNZNG8599-00-98 13:31:56674KQ [facility] CHE[facility] NUDPJ1800-53-78 13:31:60660AF SoutheastCHEM KTONL5107-94-12 13:31:0093MH SoutheastCHEM UUTAQ3194-59-90 13:31:005.9MH SoutheastCHEM YHUVZ4265-37-15 13:31:009.5MH SoutheastCHEM XVRVR7250-95-50 13:31:0030MH SoutheastHEMATOLOGY 2013-12-16 13:31:001.4MH ZclvzoiuwCQEUSARRQZ1799-43-62 13:31:002.1MH [facility] WJBJXKSBDX1774-17-40 13:31:000.3MH IhffaavkqWXXSTOCHFJ5398-28-93 13:31:000.4MH OhopeodzyVRZNUVABEI0835-31-67 13:31:0033.9MH NrvyqqtncOAEUAJQMJC2380-69-23 13:31:008.6MH TuwcfdiodOBYSCRVMNI2377-32-87 13:31:006.6M SoutheastHEMATOLOGY 2013-12-16 13:31:000.9 ZdonqcsuoKIFOGLGZBG9836-84-13 13:31:0050.0 [facility] GOPDPIBNLQ2899-08-81 13:31:0010.1MH IbyzdaptwBFJHSJRISP2292-04-73 13:31:0014.3M ImwgfbtskJDZTCSJXYT3976-19-39 13:31:18911DP DkvlcukhcWTYYFCDFRI4574-72-47 13:31:0098.1M EtzkhgghjWYVMKVKINQ3643-13-21 13:31:00* Test Item Value Reference Range Interpretation Comments MCH (test code = MCH) 32.5 pg 27.0-31.0 HnraeqcsfABBXXSZDFF7389-10-87 13:31:0033.1M JyooczajqGJZKMNNXAQ3699-45-90 13:31:0033.6M OqupvoldjRPMPMMGORM2366-07-51 13:31:0011.1M SoutheastHEMATOLOGY 2013-12-16 13:31:003.43 InsepidmjRJQOWPWGJH3921-08-94 13:31:004.2MH [facility] CHE[facility] DAQSO5070-15-41 13:54:0094 SoutheastCHEM NVOOQ3724-78-98 13:54:000.2MH SoutheastCHEM EEBDB4362-51-30 13:54:34295XT SoutheastCHEM BPDOX2502-98-15 13:54:006.7 SoutheastCHEM DOSEB0703-16-85 13:54:0030 SoutheastCHEM PANEL 2013-12-15 13:54:009.2MH SoutheastCHEM VVJUF3996-78-72 13:54:003.7 [facility] DTWGD4108-83-83 13:54:80406CI SoutheastCHEM EBKNA1091-15-06 13:54:28776GE SoutheastCHEM CRKNA2665-89-26 13:54:85009XX [facility]CHEM PRGEO1559-81-63 13:54:005.2MH SoutheastCHEM RCFFF3982-69-83 13:54:0013 SoutheastCHEM PANEL 2013-12-15 13:54:0077 SoutheastCHEM MYZNX9823-02-64 13:54:80949VR [facility] CHEM RKYQJ4081-04-18 13:54:000.8MH SoutheastCHEM GBTKM5046-39-43 13:54:0016 SoutheastCHEM WPEXV3006-73-80 13:54:0011.2M SoutheastCHEM LKQOQ1855-51-92 13:54:001.2M SoutheastCHEM XZKXC8145-06-46 13:54:003.0 SoutheastHEMATOLOGY 2013-12-15 13:54:000.2M NwwlziodvGFKRTXBQXZ0054-61-98 13:54[facility]000.3[facility] ROQPFVORFK9176-59-39 13:54:001.8 YqcitpwgzKSQCMQKTGX2279-76-75 13:54:000.9 GwqsqdtfnAKXPGGZRJD4099-57-74 13:54:000.9 QykitqiggPUCPWHLUGB7378-81-71 13:54:006.9 PenjrpbnySVDRSLXDUP7934-02-52 13:54:0056.8 [facility]HEMATOLOGY 2013-12-15 13:54:008.3M CgvwgnoiqRPFSGYNRCL5648-67-05 13:54:0027.1[facility] AUHIHYCBVV4725-71-03 13:54:0011.7 GqmtdwmpcHRIXOMBHSD3329-44-56 13:54:0035.0 XkhyzpduvORWROZWSAL8682-36-24 13:54:42384XX KrxjnvdejJSGYPRKUOR9668-04-63 13:54:0013.9 GbslxiyizKLPOQNMXIT5342-69-07 13:54:0033.3M SoutheastHEMATOLOGY 2013-12-15 13:54:0010.0 KfykssaypMEUQQKESTB9281-68-99 13:54:00* Test Item Value Reference Range Interpretation Comments MCH (test code = MCH) 32.7 pg 27.0-31.0 LibevpoexAAPLPWVCBP6920-98-86 13:54:0098.1M CzsisrfhbDCTYTAWIBH1935-80-01 13:54:003.2M FecqepiztJHDMXUIGAM5138-79-25 13:54:003.56 [facility]HEMATOLOGY 2013-12-14 10:17:0098.3M QumjybfmxLFQVOCKBNA9023-26-28 10:17:00* Test Item Value Reference Range Interpretation Comments MCH (test code = MCH) 32.0 pg 27.0-31.0 WgwcxrrqqTGEIBFZKQQ3607-01-25 10:17:003.70 LuyzmpxqiYDBNKNFMHG3036-26-49 10:17:0036.4 XiawzofwoGUEPNGCBOM5733-20-33 10:17:0011.9 [facility]HEMATOLOGY 2013-12-14 10:17:005.0 JpxhpyfagHABCQSZGPX4990-33-74 10:17:0032.6[facility] CMFFRWVLDJ3495-70-02 10:17:0014.1M TouywluabZARELVHIPD4604-46-50 10:17:0010.5 WuofoxqeoQKTHMIUMRR2142-34-29 10:17:52798LL KcjvzbucdUGXVCWLUHA8531-33-26 10:17:000.3M FuylgdxjvYBEBOOFYCE5168-71-40 10:17:000.8 [facility]HEMATOLOGY 2013-12-14 10:17:003.2M MairzmasbUEHBYMWQBG5685-03-85 10:17:001.3[facility] CZWLANHKNX8697-02-08 10:17:000.2M UthsbnmwrOUVHQLNDXS6141-22-42 10:17:00Normal (12/14/13 5:17 AM) KxngddvjjQZOPPXORMV5973-51-74 10:17:0025.5[facility] MGQDHTSLBY6326-54-06 10:17:004.1M NoxbrkgpuPZPRHJEDVU4290-31-02 10:17:006.5 SkamztbnqFVIWIOVRTV6708-40-63 10:17:0063.1M AazhbtaeyZFBCLTPDLM9550-14-31 10:17:00Normal (12/14/13 5:17 AM) [facility]CHEM LRDJR3652-80-04 10:18:17517PP SoutheastCHEM ZLCNK6764-68-17 10:18:000.2M SoutheastCHEM RLQGT6301-88-64 10:18:94231KH SoutheastCHEM OTWBD1390-75-78 10:18:002.9 SoutheastCHEM PANEL 2013-12-13 10:18:21213MS SoutheastCHEM ZXRIR1171-54-39 10:18:0011 [facility] CHE[facility] HJJQP5376-07-83 10:18:000.7 SoutheastCHEM IXMJD2068-33-90 10:18:0027 [facility]CHEM XRPAY2366-53-98 10:18:008.2M [facility]CHEM QPYYW1124-46-97 10:18:005.2M SoutheastCHEM UODHU8217-13-95 10:18:0065 SoutheastCHEM PANEL 2013-12-13 10:18:23559BJ SoutheastCHEM IDGTC1838-99-29 10:18:004.6M [facility] CHE[facility] NDGIJ2732-77-63 10:18:91439DH SoutheastCHEM BZNLT9922-13-56 10:18:0082MH SoutheastCHEM COSXQ8629-48-78 10:18:0016 [facility]CHEM ZYMFN7558-59-73 10:18:0011.6M SoutheastCHEM LQTQP1641-10-89 10:18:002.3MH [facility] PANEL 2013-12-13 10:18:001.3M SoutheastANEMIA GRIRA8087-39-48 10:10:0010.8 [facility] PEVFN9354-03-75 10:10:28280TF [facility] XANAH3450-17-82 10:10:95431TG [facility] MGOAX7403-73-11 10:10:51998ZE [facility] FFQOX1634-33-15 10:10:90201OY[facility] CVHMM6164-25-47 10:10:0030[facility] SQCBS0391-91-56 10:10:0025[facility] BCPWH9781-60-86 08:35:0031 CxqrigqrgMVWGGNBCXD9876-85-79 08:35:000.95 [facility] 2013-12-12 08:35:00* Test Item Value Reference Range Interpretation Comments PT (test code = PT) 12.6 s 12.0-14.7 [facility] CMVWX6701-87-02 22:30:00Negative (12/10/13 5:30 PM) [facility] SDISZ4391-26-53 22:30:00Trace *ABN*(12/10/13 5:30 PM) [facility] DYOPX9705-87-58 22:30:003 [facility] STOOL 2013-12-10 22:30:001.004 [facility] RCHRP3225-55-46 22:30:00Clear (12/10/13 5:30 PM) [facility] XCZIH7787-91-83 22:30:007.0[facility] URINE AND GXPTK4004-42-05 22:30:00Negative *NA*(12/10/13 5:30 PM)[facility] URINE AND XDEBT8026-71-16 22:30:00Negative (12/10/13 5:30 PM)MH [facility] GFCSF8437-58-86 18:40:001.9MH TtzsgoursEFACGMTBFK6574-94-83 12:14:00<0.4MH [facility] MDZRM6946-66-25 05:40:001.008MH [facility] STOOL 2013-09-19 05:40:00Clear (09/19/13 12:40 AM)MH [facility] TKLTP4452-89-88 05:40:006MH [facility] DZQYA3594-55-47 05:40:00<1MH [facility] MIJNB3476-12-66 05:40:002MH [facility] YHFQE4135-72-77 05:40:00Small *ABN*(09/19/13 12:40 AM)[facility] KOWYZ5711-75-54 05:40:00Negative *NA*(09/19/13 12:40 AM)[facility] YTDRP2913-92-13 05:40:006.0MH [facility] POZPD3232-84-68 05:40:00Small *ABN*(09/19/13 12:40 AM)[facility] TAIJA4546-49-88 05:40:00Negative (09/19/13 12:40 AM) [facility] NAYXM9889-72-87 01:58:001.3MH [facility] ZFLTQ4716-82-06 01:58:003.1MH [facility] HRLNZ7452-38-67 01:58:0017MH [facility]CHE[facility] PANEL 2013-09-19 01:58:0012.5MH [facility] SINSI2478-43-42 01:58:73575YV [facility] VJVQV2064-66-49 01:58:0012MH [facility] SOKPM1671-53-08 01:58:0090MH [facility] XQDJH3660-43-80 01:58:000.7MH [facility] PWXPL0080-72-28 01:58:000.5MH [facility] OEKQS8134-28-00 01:58:70754LU [facility] PANEL 2013-09-19 01:58:89042IN [facility] NPLWD6893-38-99 01:58:008.9MH [facility] REIPX4125-92-83 01:58:0025MH [facility] JTACQ9014-46-76 01:58:004.0 [facility] TJNJU8421-96-27 01:58:007.1MH [facility] VCTGO1229-50-12 01:58:57527XT [facility] THFVN1322-45-63 01:58:003.5 [facility] PANEL 2013-09-19 01:58:24497XM [facility] GNYZO2569-39-81 01:58:36740ZR [facility] IFLKJ3338-36-07 01:58:001.9 UpsyxojjmXBAOWOSVZU3375-00-76 01:58:21462KL ZefvgrdnyNPFAFNWXSP3868-21-84 01:58:0033.9 FbhirrpqpOUFEKEZLCU0297-18-82 01:58:00* Test Item Value Reference Range Interpretation Comments MCH (test code = MCH) 31.9 pg 27.0-31.0 IxjpfdoutRSHSHHBSFG4723-42-94 01:58:009.0 WtsecouqoFXPRJXTDZU5328-99-96 01:58:0013.7 UvteunsatHKCTTQHOWE0353-42-66 01:58:0035.9 [facility] 2013-09-19 01:58:0012.2M HwihcbwqqGKAJFSGJXE6256-44-16 01:58:003.81MH [facility] KTHZDBQXSQ8262-54-80 01:58:0094.2M FpowldmkbBUFRYAWXRQ9106-28-50 01:58:005.8MH OkybqrvacGOTMZVCANR2055-23-79 01:58:000.3MH UsasodddgSXDSNJCNRO3456-65-92 01:58:007.2M QbnpjdcjcMBTJZZIETJ0546-60-95 01:58:003.4 [facility] 2013-09-19 01:58:0030.1M AdkiifjlfJGFNISHKPI0365-23-18 01:58:0058.4[facility] NMQSNCUBTN3395-55-89 01:58:000.4 SkqqvnellJZUPGXPZVQ5696-59-44 01:58:001.7 VvtqodoihJAKBPNAAPD3477-72-59 01:58:000.0 GgnacmkeiQWLRPJNUAG1643-77-23 01:58:000.2M EpjmaxhfpFIPQGWRYSW5037-75-27 01:58:004.0 [facility] PANEL 2013-09-13 03:45:31629OX [facility] NVGVC8335-82-15 03:45:0012.9MH [facility] JFEXX4215-94-78 03:45:0027MH [facility] NXUHF0648-52-62 03:45:008.6MH [facility] GRQEI6350-52-44 03:45:000.7MH [facility] GVQRK4244-05-65 03:45:20534SL [facility] MFVQT6890-69-98 03:45:009MH [facility]CHE[facility] PANEL 2013-09-13 03:45:003.9MH [facility] IYRLD9635-21-70 03:45:76834MX [facility] WDJQM5725-98-43 03:45:38263OA BqfvdrxccXFHCQJJYNRZA8907-88-59 03:45:003.6MH SoutheastANEMIA FPNTJ1676-47-93 02:45:0041MH [facility] KRQVT9948-57-27 02:45:54793FY [facility] YHGIT8974-71-82 02:45:0010MH [facility] STUDY 2013-09-13 02:45:18156IL [facility] LSSND1115-02-17 02:45:73462OV [facility] BLOOD [facility] WLRANQA6559-79-60 02:45:00Negative (09/12/13 9:45 PM) [facility] GCATI1645-34-30 02:45:00<0.1MH [facility] AUCUI4588-63-83 02:45:001.9 [facility] GMPMR4150-93-35 02:45:005.3MH [facility] PLWYR5575-92-76 02:45:0092MH [facility] VDJWI7035-76-29 02:45:0029MH [facility]CHE[facility] PANEL 2013-09-13 02:45:0011MH [facility] BYLKB8240-56-62 02:45:0063MH [facility] MWVVK1326-93-76 02:45:0082MH [facility] USEZO4792-94-52 02:45:55395YW [facility] DFPYB3121-69-05 02:45:001.0MH [facility] HTHYO7775-35-66 02:45:14297BL [facility] MGIHZ9954-36-97 02:45:004.0MH [facility]CHE[facility] PANEL 2013-09-13 02:45:003.9MH [facility] RBGOE8879-89-94 02:45:008.6[facility] QDCJW5286-68-66 02:45:007.9[facility] IHIXF6883-15-44 02:45:0013.6[facility] MQZUL7777-73-54 02:45:0030[facility] IGCHG9313-33-48 02:45:49840GJ[facility] DLLVL1963-42-58 02:45:00See Note 1, 2(09/12/13 9:45 PM)[facility] ELHJS6373-94-09 02:45:91882AX[facility] ZJBBT5030-91-93 02:45:00See Note 5(09/12/13 9:45 PM)[facility] EOSHV4310-42-25 02:45:00See Note 4(09/12/13 9:45 PM)[facility] ChildrenZwtscksvoXVVQYXZEPM7310-99-25 02:45:001.1[facility] 02:45:001.7[facility] HospitalJujtmyrwqJXZUMVKNIE7309-38-36 02:45:000.0[facility] HospitalJyoushctcPQTLFTNDDX8527-72-87 02:45:000.3M ZtkfbugudUPDMLNBESL8213-22-97 02:45:000.3M ZiqyujbluITSYTJBXNO2053-07-39 02:45:0037.3M [facility]MAT[facility]Y 2013-09-13 02:45:0048.8[facility] HospitalCowujalvrMFCAXRXQBF7643-06-63 02:45:00Normal (09/12/13 9:45 PM) YelkuybstJWQHZKORTI4649-68-90 02:45:00Normal (09/12/13 9:45 PM) KuzlmgjpuJQROYKRYQO5925-22-26 02:45:002.3M LfoekjvbiKOIOWNLTPP4585-21-47 02:45:000.8 LnrpltnguEFMRTGGJPE2012-25-52 02:45:007.1M [facility] 2013-09-13 02:45:006.0 IxqqetgfoQJNJQZGKNK3919-55-35 02:45:00* Test Item Value Reference Range Interpretation Comments PTT (test code = PTT) 30.3 s 22.9-35.8 OcczcorpsZTFCFZEAMS5545-23-73 02:45:000.96 XxysgsbaaCFJXPMTBTM9105-38-20 02:45:00* Test Item Value Reference Range Interpretation Comments PT (test code = PT) 12.7 s 12.0-14.7 HkqykbnbpAKNVYJRARV4525-84-11 02:45:0010.5 ZfyregqwuMIWUCMJDVE5989-79-14 02:45:22632LT PdeeyhhdbKOYQRQNJQN9681-41-10 02:45:0014.4 [facility] 2013-09-13 02:45:00* Test Item Value Reference Range Interpretation Comments MCH (test code = MCH) 31.8 pg 27.0-31.0 IfevhaymwOBDWAANEUQ8899-38-38 02:45:0096.0 AdmiwtbieRQHVFRSLVP6464-24-81 02:45:0035.2M VeukfpieqFZYXXQKMRF8694-24-34 02:45:004.7 [facility] 2013-09-13 02:45:0033.1M FwqvaycoiKMCEFKGWPO2208-00-96 02:45:003.66[facility] DCUWBTGELQ5576-56-42 02:45:0011.6[facility] FEYBK3226-26-25 22:35:00 Clear (09/12/13 5:35 PM) [facility] NJDPC9657-06-02 22:35:001.006 [facility] OTIAQ9626-15-11 22:35:00Negative *NA*(09/12/13 5:35 PM) [facility] SCJMV7645-02-32 22:35:00Large *ABN*(09/12/13 5:35 PM) [facility] RJOLF8143-49-13 22:35:00<1MH [facility] STOOL 2013-09-12 22:35:007.0 [facility] HGWRQ2565-61-53 22:35:00Negative (09/12/13 5:35 PM) [facility] HKIKU2061-43-86 22:35:00Negative (09/12/13 5:35 PM) [facility] NLZOR1307-05-01 22:35:0029 [facility] CHEM 2013-09-12 22:35:00Negative (09/12/13 5:35 PM) [facility] LQQSV1420-94-55 11:58:008 [facility] FBVZR6588-01-12 11:58:002.4MH [facility]CHE[facility] PANEL 2013-09-10 11:58:001.2MH [facility] RTNFV4825-02-71 11:58:85477NT [facility] UOYTA0649-45-83 11:58:003.7MH [facility] OVYLQ9559-92-32 11:58:58940UJ [facility] RSRJV2075-26-50 11:58:0020MH [facility] CTELG6141-48-19 11:58:0010.7MH [facility] UHYTY3466-07-48 11:58:59855WD [facility]CHE[facility] PANEL 2013-09-10 11:58:000.2MH [facility] BEJPZ7773-55-59 11:58:0029MH [facility] LUCEZ6526-18-26 11:58:008.6MH [facility] VSLGY0078-67-70 11:58:005.4MH [facility] OZDJI5367-29-80 11:58:003.0MH [facility] BCOXY8023-18-93 11:58:0095MH [facility] QMFNI4444-02-79 11:58:000.6MH [facility] PANEL 2013-09-10 11:58:02261IT [facility] ESOYL0204-61-63 11:58:0081MH [facility] TBRWL3367-39-12 11:58:005MH [facility] ARKPK8838-60-21 11:58:00<0.1MH [facility] EJNMN7879-21-11 09:28:38792KB [facility] DQRBQ0346-16-38 09:28:0042MH [facility] PKDNK1412-04-23 09:28:65447DU [facility] PANEL 2013-09-08 09:28:00<0.1MH [facility] TMHQA7637-09-51 09:28:000.1MH [facility] JTGFI6391-30-51 09:28:00>0.0MH [facility] OEKJG6659-61-80 09:28:001.2MH [facility] BBIPM0639-01-93 09:28:002.6MH [facility] DLPXF8036-35-50 09:28:003.0MH [facility] SIRYH1924-44-90 09:28:005.6MH [facility] PANEL 2013-09-07 09:15:84458SQ [facility] DDNMB4364-75-22 09:15:0031MH [facility] MKOQA4536-67-88 09:15:52585JD [facility] QGFJM9608-68-76 09:15:002.9MH [facility] QGNKK4267-79-81 09:15:001.2MH [facility] SRIAY0548-15-01 09:15:00>0.1MH [facility] YIMJK1633-71-13 09:15:000.2MH [facility] PANEL 2013-09-07 09:15:00<0.1MH [facility] LKDPG1980-88-04 09:15:006.4MH [facility] MBBWU1038-26-20 09:15:003.5MH [facility] BDXGC4522-66-08 10:26:00>0.2MH [facility] COFIH2621-86-97 13:25:67581GM [facility] COEAL2812-16-57 13:25:23515DF [facility] BLQAT2482-97-83 13:25:0073 [facility] PANEL 2013-09-04 13:25:003MH [facility] UEJDL8437-34-59 13:25:000.6MH [facility] XJNJE8347-81-78 13:25:0011.1MH [facility] RWHXI5747-08-56 13:25:005MH [facility] SDTGE7685-29-86 13:25:008.1MH [facility] DEYTP1552-22-73 13:25:004.1MH [facility] SAAHZ3284-83-93 13:25:0025 [facility] PANEL 2013-09-04 13:25:51296RN DrcmshvxxEITULCNROS1145-39-78 10:28:000.1MH [facility] DKWBQXEHWB3973-15-46 10:28:64108GV VsvkgctntWTBTOBJRJW9225-50-88 10:28:00 Negative (09/04/13 5:28 AM) BergaxmhrIRJRSRUEGB9597-91-72 10:28:00Negative (09/04/13 5:28 AM) PkldazmjtSMPOYEOINK6981-87-31 10:28:00<20.0MH [facility] ZDRGFYTELA5911-39-42 10:28:0022 [facility] RUOTI3829-13-67 11:34:35930LR [facility] FKNKK6092-19-75 11:34:19605UX [facility] RHBRG6539-97-32 11:34:0027MH [facility] EOYTP7931-78-27 11:34:008.1MH [facility]CHE[facility] PANEL 2013-09-03 11:34:006[facility] WZRVQ8123-65-37 [facility] NDEAC1944-40-80 11:34:000.6MH [facility] JZHFW4260-67-55 11:34:004.0[facility] GIWFF1400-56-97 11:34:0061[facility] YQNPT2343-78-34 11:34:006.0[facility] MEAYA6578-04-63 11:34:0010 [facility]HEMATOLOGY 2013-09-03 11:34:001+ *ABN*(09/03/13 6:34 AM)[facility] HospitalTlgsgdlhkEPLCVYGYRB7515-77-64 11:34:00Slight *ABN*(09/03/13 6:34 AM)[facility] HospitalYovabhrdkSWQEIUYJZJ8561-72-11 11:34:00 0.0 WkfoazahxIUUJCGYRSI2356-43-63 11:34:000.2M SplopsqkuZDEAVNEOTW7918-34-39 11:34:000.2M DlugdulflMILUCJIZTB9094-25-08 11:34:006.3M [facility] 2013-09-03 11:34:001.0 PtokblbkeOZDQWXWHJH8893-69-07 11:34:002.2[facility] QBAUULGUOX4636-78-61 11:34:000.7[facility] HospitalCqbkxnkdnBDKGMXDYRW6888-90-86 11:34:0064.7 EwgytvzdgBMJKQFRMPZ2258-83-33 11:34:005.8[facility] HospitalUeqknmttjBEQBBLLHQN4971-74-18 11:34:00Normal (09/03/13 6:34 AM) OgvfcozwmXHEVONAIXE8247-06-80 11:34:0022.2M FeyhrhsloYGJYDJJTKS9019-95-40 11:34:0010.2M OrgwzypatONCXBMTOEO7400-31-12 11:34:002.94 BxsodhlpyBYPPFRQOAN3577-00-02 11:34:009.6M [facility]MAT[facility]Y 2013-09-03 11:34:0028.0 IqjrytaqgLPWNPLDERF7757-45-37 11:34:0095.2[facility] MGFCUIBNQW2379-47-59 11:34:00* Test Item Value Reference Range Interpretation Comments MCH (test code = MCH) 32.5 pg 27.0-31.0 EvsmgzjmsBCCGQGZKCN1454-28-43 11:34:0034.2M BgbzqyaxhKEAARSNVJK3334-16-00 11:34:32281KJ IgzhjqjrnYVKQOGVKYJ9680-56-10 11:34:0014.2M [facility]HEMATOLOGY 2013-09-03 11:34:003.4[facility] HospitalFbfatelwdJWRGKKOPZU6684-76-46 11:34:00Negative *NA*(09/03/13 6:34 AM)[facility] HospitalJflivxdxmLPXQPKYBEE2124-97-51 11:34:00Negative *NA*(09/03/13 6:34 AM)[facility] HospitalXhwkyvjcvXPUEUQBSIY2858-94-27 11:34:00Negative *NA*(09/03/13 6:34 AM)[facility] HospitalQboswpbqjLQPVCGHUFE0571-36-12 11:34:00Negative *NA*(09/03/13 6:34 AM)[facility] HospitalMjppjdxoqEQMIHBBTXQ6913-69-81 11:34:00Negative (09/03/13 6:34 AM) [facility] BMBCE0492-51-34 05:53:94676KK SoutheastCHEM PANEL 2013-09-02 05:53:0054 OxxqznqqjRDXRYDRNAB1484-00-07 05:53:0033.4[facility] MYNPNFZXTC7683-74-42 05:53:008.5 EfqqvkcmyLKVFQGHMAI4859-56-50 05:53:0054.8 VxllwxjxmPJGYHDFDEE8887-71-80 05:53:000.[facility] LspepslntXCMBNYAXZN1800-54-25 05:53:000.0 RbxzbuuvuSLGYZLTEUT9462-23-23 05:53:001.7 [facility]HEMATOLOGY 2013-09-02 05:53:000.4 ZvefckprrJUZWHHCMUG4343-76-26 05:53:000.5[facility] PGXRFODUQK7044-61-27 05:53:002.8 RmavmhsqlWORUGNNJHU9678-95-10 05:53:002.8 GhgeingzuCEZMYFVYHZ2220-95-31 05:53:0010.2M YbumhqpmiHZUDLJXBML9822-04-48 05:53:99782NP TfxncbaffAOCGPOYVOR5441-51-27 05:53:003.93 [facility]MATOLOGY 2013-09-02 05:53:0012.5 MrgpvwqxpUSCOSIZMNJ9015-21-63 05:53:005.0 [facility] KNKMPDDKXI8543-02-50 05:53:0033.7 UqiwkmzhwILLJMESJFG8875-98-36 05:53:00* Test Item Value Reference Range Interpretation Comments MCH (test code = MCH) 31.9 pg 27.0-31.0 XcramiidcNQLXRODWJB4413-06-71 05:53:0014.0 SfgomikgtPUXFWBZJVB8136-72-67 05:53:0094.6M PmsivopwlWDEKSBUYEN0120-23-07 05:53:0037.2MH [facility] CLNBF9853-31-76 04:24:00Small *ABN*(09/01/13 11:24 PM) [facility] STOOL 2013-09-02 04:24:00Negative (09/01/13 11:24 PM) [facility] STOOL 2013-09-02 04:24:00Negative *NA*(09/01/13 11:24 PM) [facility] STOOL 2013-09-02 04:24:005.0 [facility] UMMEW2874-98-07 04:24:00Negative (09/01/13 11:24 PM) [facility] JDQSN0129-79-57 04:24:008MH [facility] URINE AND NFPEU0635-84-57 04:24:00<1MH [facility] CSVNS3431-22-12 04:24:001.020 [facility] DXCII9113-30-94 04:24:00Clear (09/01/13 11:24 PM) [facility] SJCB8961-00-91 04:24:00Negative (09/01/13 11:24 PM) [facility] OHWHE6594-99-96 07:00:008.9 [facility] WVAYV6390-11-54 07:00:000.1MH [facility] EVWYJ3306-16-25 07:00:16529KI SoutheastCHEM PANEL 2013-09-01 07:00:09681QI [facility] HEVPR5316-30-63 07:00:006.9 [facility] CEWVM1781-20-59 07:00:0025 [facility] NKONI7384-34-43 07:00:91395IC [facility] ESFVD5865-23-82 07:00:000.7MH [facility] JDDML2826-98-00 07:00:00528ES [facility] CJRKQ6412-96-90 07:00:003.4 [facility]CHEM PANEL 2013-09-01 07:00:0012 [facility] KGZFU0136-70-87 07:00:08490NU [facility] XYDIH7067-53-04 07:00:0095MH [facility] TXKTF3357-71-36 07:00:003.8 [facility] BQVNP6975-80-25 07:00:03693PF [facility] ZSUMW7267-46-47 07:00:0017 [facility] PWLEM4996-50-84 07:00:001.2MH [facility]CHEM PANEL 2013-09-01 07:00:003.1MH [facility] BGXOG7095-63-98 07:00:0012.4[facility] WKGZSCWQIU9006-21-24 07:00:000.2M NbxetikqeYUGAGBGHJC1216-39-30 07:00:000.0 ApafbctmwGEPMDLVXUL3165-52-86 07:00:000.7 FrxpkknbiZUHSBFVJWB8412-09-44 07:00:002.1M TcqobbxbzJWLVZRIBDR1518-33-81 07:00:000.5 [facility]HEMATOLOGY 2013-09-01 07:00:000.2M VeoazlzckSKKZJNVNAN2896-18-77 07:00:0066.6M [facility] AEZUDYICDE2111-72-72 07:00:0016.9 OlypxtrzyFGTKHYMOJN8649-44-42 07:00:008.1MH GfxdgkjdgMFUWNWGQZS4426-01-88 07:00:007.7 KtdkmczjmDTSLZWBJCL8676-51-91 07:00:0033.6M VdxenxpdsCMPUSZEPKD2334-99-58 07:00:00* Test Item Value Reference Range Interpretation Comments MCH (test code = MCH) 31.7 pg 27.0-31.0 DdhvitdfkZCLXPHYBJG8871-25-99 07:00:81670GP BjqumbibeMHTAMTTDQL9760-14-39 07:00:0013.7 JkfweknbnWFUGAROVAJ5879-47-30 07:00:0011.4 [facility]HEMATOLOGY 2013-09-01 07:00:003.58 ScqwqjpykNTVZVGTSAG4515-66-03 07:00:0033.8[facility] QAHCUSAEUL1163-03-21 07:00:0094.3[facility] InstituteXisqxihnmBZOLSCCIWQ5848-25-51 07:00:0010.1[facility] InstituteUxeoobqjrONWCZZOLET2866-06-53 07:00:003.1[facility] InstituteEffilvqdiZDXCPTORFS5769-81-78 05:53:00Negative (09/01/13 12:53 AM) [facility] BGVSP4615-34-63 04:50:001 [facility] OMRCG4989-37-81 04:50:001 [facility] AKRYO4495-83-99 04:50:005.0 [facility] FSLVB7119-80-63 04:50:00 Negative *NA*(08/31/13 11:50 PM) [facility] HMYHD2916-38-85 04:50:00 Negative (08/31/13 11:50 PM) [facility] YFBJJ4840-60-19 04:50:00Trace *ABN*(08/31/13 11:50 PM) [facility] TLMUK3346-16-27 04:50:00Negative (08/31/13 11:50 PM) [facility] ACLWL6249-62-76 04:50:00Clear (08/31/13 11:50 PM) [facility] MHYSP6533-43-87 04:50:001.014 [facility] UVAD4339-33-55 04:50:00Negative (08/31/13 11:50 PM) SoutheastURINALYSIS 2013-06-06 02:57:001[facility] HospitalFagewokzdHRATCPPYGY6723-87-30 02:57:00Clear (06/05/2013 20:57:00) CdzljsqgeWIIIEBNEIB9715-51-02 02:57:001.005 [facility]URINALYSIS 2013-06-06 02:57:007.0[facility] HospitalSpajkxkxaSKTHFOQGRY7228-63-90 02:57:00Negative *NA*(06/05/2013 20:57:00) AqcyxykokVOBJOHJHMM1518-53-50 02:57:00Negative (06/05/2013 20:57:00) [facility] HospitalVohicfmwoCDFNHJGJET2745-60-97 02:57:00Negative (06/05/2013 20:57:00) [facility] HospitalJneugfkleEOSGNPKFOR5304-62-57 02:57:003[facility] UHZWAZWATO9521-81-01 02:57:00Moderate *ABN*(06/05/2013 20:57:00) [facility] VIRAL - GXFEIIET9276-91-02 02:41:00Negative (06/05/2013 20:41:00) [facility] VIRAL - YCMKIDCN9627-67-48 02:41:00Negative 1(06/05/2013 20:41:00) [facility] SHZYGWJDB3136-90-83 02:30:002.0 OucavhcxaAEAYEHEEQ5843-05-11 02:30:0094 VznbngkmhFRBIBYWPE0312-17-66 02:30:0018 UcqnxmnalRRLXDSAVA4513-51-02 02:30:00 3.6MH GquwegwrgSMQJICNIM3821-89-26 02:30:0030 ZmdtqmaeoEVMTAUAJZ6867-76-49 02:30:27930TE PqquxgnrnMCZDEDVZQ0734-12-12 02:30:0052 [facility]CHEMISTRY 2013-06-06 02:30:003.9 MvtvjuthsWSOQUHIPP8456-68-24 02:30:008.7[facility] IJEHFPSKH5395-06-57 02:30:03900MR AjghnflnbQDLQACAQH3262-73-39 02:30:000.8 BthqbhynnWMGCBABIG1925-51-20 02:30:77114CW DuhglamziAMPMHNARP6570-93-08 02:30:00 15 TeaaybjegJYYXWSZZF2305-10-08 02:30:73076EO HrushfflwOTCABLTON6804-97-83 02:30:000.2M HkneapyrzFUCQBXCEL2692-88-17 02:30:007.3M [facility]CHEMISTRY 2013-06-06 02:30:0019 OktulkbedDMTIEWOXN4571-48-15 02:30:009.6M [facility] WTNHBMTJY3336-43-44 02:30:003.4 DgdngycjnCHNGOSQZB7366-27-24 02:30:001.1M IjlquoeadGNGXEISFJA7593-86-65 02:30:0025 FngfygtkcERYQUJNDDJ7605-86-98 02:30:0094.2M NzblukyazCRRWRZOLFC6557-39-66 02:30:0032.7 [facility]HEMATOLOGY 2013-06-06 02:30:00* Test Item Value Reference Range Interpretation Comments MCH (test code = MCH) 30.8 pg 27.0-31.0 N EzkvbkuagEYRMLTJZNG8108-59-61 02:30:0014.2M MizbylrdpURKKCVOHXY1617-35-44 02:30:009.0 KwdkmbxfwVQEMJEAGOX3580-63-37 02:30:58871NB [facility]HEMATOLOGY 2013-06-06 02:30:0012.0 GrenalfoxRHWIUMCBNW5270-86-80 02:30:0036.7[facility] TZXBKBXILL7046-94-08 02:30:003.89 XlbvbmldwWIJFQJCOAN2857-34-66 02:30:004.2M NqooevewcKIZUZYWAVX2899-35-45 02:30:001.9 OrtpwhonxXSVSTXLGPV0838-12-95 02:30:000.0 StotszbqoHSWMUQFWEC1665-71-41 02:30:000.3M [facility]HEMATOLOGY 2013-06-06 02:30:0043.2M AajxymdezFLEKRJBOPM6857-69-80 02:30:002.4[facility] YIXVQZNEFJ8473-88-87 02:30:000.1M FaghjnecdKRLUKGNHXP6694-95-60 02:30:001.8 BqqmwntxmHBROUGWQJK6479-02-82 02:30:000.7 NwqjopvvqWPHNPTEIXI1286-21-05 02:30:006.8 XysuwrydbWMIAOJXNHI3953-22-91 02:30:0046.9 [facility]CHEMISTRY 2013-02-12 07:36:00<0.6MH QmjesiypaBRCXUIKGM5912-05-48 07:36:00<0.02 [facility] MVBBJJVHX1155-13-30 07:36:00<0.5 RfkkdllihFKJTSJVYC7370-53-32 07:36:0088 SwhqqotozUHRPUNGNA1514-30-51 04:40:00<0.6MH DbfwyxtljEMYCQTCJX8980-68-89 04:40:00<0.02 OybobkrquPMWEJJPMT2466-30-29 04:40:0086 [facility]CHEMISTRY 2013-02-12 04:40:00<0.5 VmvbcxffsBUKWJZMNO1709-71-59 04:40:0094 [facility] QGOFBTMOD5877-56-15 04:40:003.3MH PovbkqutcILNBQVPKJ5496-19-67 04:40:001.3MH RawcslirzQAKBMPOIN0084-05-37 04:40:0015MH NlmwghdtcHCHFKLSOO3006-08-04 04:40:00 12.8MH RqtsctspvZLIXJRKSJ0200-54-92 04:40:62301SA QafftwrugAHPLRMGPA2632-41-74 04:40:000.3MH KbdbjxqtwVUVOTFIIR7469-90-49 04:40:0014MH SoutheastCHEMISTRY 2013-02-12 04:40:000.8MH LelohebwqZKMCBVMOP8876-91-73 04:40:0081MH [facility] RLFLPYRAB4249-22-46 04:40:0012MH CceoodialIZBSMNRVW6333-17-87 04:40:007.6MH BdhdfzqaoKTMFNHNTZ6185-43-85 04:40:004.3MH AwjfqwrmeWEYHVTLVK4727-79-64 04:40:00 28MH VwlnqwyfzSKJGFXVVM3099-28-68 04:40:009.8 JhxockumsXSLVJMCDQ4795-63-85 04:40:0050 YxcfqfuntHGOWQNYYR7478-88-59 04:40:29041GL [facility]CHEMISTRY 2013-02-12 04:40:42334RA XafddbovnVZVIUOMDJ4556-49-68 04:40:003.8MH [facility] VXRVAVWEPU5805-25-03 04:40:000.0MH KcgrjzbhsEXVGXZLTTG8947-90-09 04:40:000.1MH BhhqwsbfmRCWGDGKNNH5742-55-52 04:40:002.2MH ZernxggzgFQVGXUEOWB5503-63-01 04:40:001.9MH DbpyyqzkeLIIIKZWJJQ0651-64-99 04:40:000.3MH [facility]HEMATOLOGY 2013-02-12 04:40:007.1MH XmyxpzcmpBBXOMFPCLB2968-24-91 04:40:000.6MH [facility] KFIXMBQXXN4500-81-01 04:40:001.9 SfoabvuqaWDTJKCVFWV0132-76-29 04:40:0044.8 BlpvjpqrnBDQKCDTPNO8624-18-17 04:40:0045.3MH RiqxzkecjBAGWWYPKWV4797-79-32 04:40:0032.6MH FfiysexdvNXYSQLNCKU0283-73-67 04:40:00* Test Item Value Reference Range Interpretation Comments MCH (test code = MCH) 31.0 pg 27.0-31.0 N [facility] HospitalXcwtkpotmKBDVARPJTD0886-04-78 04:40:0014.3[facility] InstituteThhicjffzWCKXXWNYQI9366-29-30 04:40:89323NWHeywood HospitalPwcqrmlvwNMCKYJDHYH9017-24-59 04:40:0010.0[facility] 2013-02-12 04:40:004.3[facility] InstituteBhfshfwtgXDMMTWGPQO5381-96-34 04:40:0012.5[facility] HZUMOSVJCB7899-77-67 04:40:0038.2[facility] InstituteTvmvvtriyJAEVYBAJUF2482-43-98 04:40:0095.1[facility] InstituteKgbdbblotCTUJCKRBCE6244-17-39 04:40:004.02[facility] HospitalLwfuwixvwPICYSGXPAV8481-96-18 01:54:00Occasional /LPF *NA*(02/11/2013 20:54:00) [facility] 2013-02-12 01:54:00Few /HPF *NA*(02/11/2013 20:54:00) [facility] 2013-02-12 01:54:007[facility] HospitalEnmgqsqgcPXMZVMBQKM9349-79-44 01:54:001[facility] WWHVCBCTJM1622-20-03 01:54:00Negative mg/dL *NA*(02/11/2013 20:54:00) [facility] HospitalCailiiinhBZOSQMJBUI3496-34-18 01:54:001.010[facility] HospitalTytzsynbiPRIZHEKGCR2176-90-55 01:54:00Trace mg/dL *ABN*(02/11/2013 20:54:00) [facility] HospitalVwexntsmkBONMQUBNEC7979-91-19 01:54:00Negative *NA*(02/11/2013 20:54:00) [facility] HospitalKnbvokdebRGNFFWXBYE4670-01-28 01:54:00Negative (02/11/2013 20:54:00) [facility] HospitalPlakbtdeiAYWIXYOWZM9444-48-76 01:54:00Large *ABN*(02/11/2013 20:54:00) [facility] HospitalBqhtlhpbvXBMAJOWBTU0329-94-95 01:54:00Negative (02/11/2013 20:54:00) [facility] HospitalAbihvxyoyQAIBNVTCTY4331-91-76 01:54:00Negative mg/dL (02/11/2013 20:54:00) [facility]TGEEWUJJLH1458[facility]75-70 01:54:00Clear (02/11/2013 20:54:00) [facility] CenterZoflmqmmyKPSIDKRBHJ6560-83-36 01:54:00 5.0[place] [address]BctdcdyekRGIOWHGONN4825-29-10 05:45:000-2 /HPF (09/28/2012 00:45:00) [facility] 05:45:00Performed (09/28/2012 00:45:00) [facility]2013-05-17 05:45:00Small *ABN*(09/28/2012 00:45:00) [facility]2013-05-17 05:45:00Few /HPF (09/28/2012 00:45:00) [facility]2013-05-17 05:45:006-10 /HPF *ABN*(09/28/2012 00:45:00) [place]23703-05-17 05:45:00Few /LPF (09/28/2012 00:45:00) [facility] 2012-09-28 05:45:00Negative (09/28/2012 00:45:00) [facility] WKSDDBDBDY1483-82-18 05:[facility]17 05:45:00Negative (09/28/2012 00:45:00) [facility] 05:45:00Negative (09/28/2012 00:45:00) [facility] QAWRIIKJPP4068-80-01 05:45:00Negative *NA*(09/28/2012 00:45:00) [facility] 05:45:00* Test Item Value Reference Range Interpretation Comments UA pH (test code = UA pH) 6.0 1 5.0-8.0 N [facility]2013-05-17 05:45:00Negative *NA*(09/28/2012 00:45:00) [facility]2013-05-17 05:45:00Moderate /LPF *ABN*(09/28/2012 00:45:00) [facility] HospitalAfpbxiFCMUECOIOA4903-61-29 05:45:00 Negative (09/28/2012 00:45:00) [facility] HospitalDnxcdmHOKBCBAFOT4648-83-32 05:45:00* Test Item Value Reference Range Interpretation Comments UA Spec Grav (test code = UA Spec Grav) 1.020 1 N [facility] HospitalWmuteqYYRFMNPSNX2335-58-70 05:45:00Slight Cloudy (09/28/2012 00:45:00) [facility] HospitalBbojprEPBTVJCJDK7288-15-49 05:45:00Yellow *NA*(09/28/2012 00:45:00) [facility] HospitalIirvjnRIUZBJRID0406-00-40 01:58:29 4.3M[facility] HospitalFrvaqeONIGPJYVJ1867-84-78 01:58:291.7[facility] SSWBJTUNC1770-38-60 01:58:2995[facility] HospitalUjqagmIVDGXRWPT5843-62-48 01:58:2912[facility] HospitalTtgernYYNNPRVOI5899-91-31 01:58:2994[facility] HospitalTowwbdNMWFJWDAV8742-42-06 01:58:2931[facility] HospitalPuxagrPXAYHWMYZ2653-43-22 01:58:15054JNAudie L. Murphy [facility] HospitalCehrtdUSKBNSVGF2214-29-19 01:58:290.8[facility] HospitalNahfwzUTHPFIVIC5775-24-80 01:58:65029DOAud[facility]. [facility] HospitalCHEMISTRY 2012-09-28 01:58:294.[address] [place], [place] [address]RpagcnBBTLDBRXS1309-11-07 01:58:299.7[facility] HospitalWqxlpcULVMVWYQF8874-99-52 01:58:[address] [place] [address] ZZHQPMNTHP8653-07-76 01:58:[address] [place], [place] [address]IxynreGYZZOYCMCX9366-73-20 01:58:290.[address] [place], [place] [address]QqgvppIUYEPXYRDB4119-62-90 01:58:[address] [place], [place] [address]LfqajaVKKMQJJXUI7078-35-57 01:58:296.6M[facility] HospitalHEMATOLOGY 2012-09-28 01:58:2944.0[facility] HospitalQatzuvNKTPPCGKYA9278-35-20 01:58:2946.4 [facility] HospitalQctppzRLJEAQOHXT7242-54-18 01:58:292.1M[facility] JZSPSKLNXQ0289-55-00 01:58:291.3M[facility] HospitalVvpkjnCAEUWPELOW0078-38-08 01:58:291.7[facility] HospitalVungqiDXFFRZYDKV8796-37-69 01:58:292.1M[facility] HospitalHfkkadGPZGQYRNLA5720-51-83 01:58:2995.6M[facility] HospitalHEMATOLOGY 2012-09-28 01:58:293.79[facility] HospitalJwauibAHKJEWBJYL6190-53-83 01:58:2912.2 [facility] HospitalJhrdydPVPRPZDQXV1831-50-17 01:58:2936.2M[facility] BMLOKINGIL7502-43-55 01:58:294.7[facility] HospitalXabbpfCSJWXPVOKY0340-47-24 01:58:299.5[facility] HospitalLkgwqzONDZCAISTA6907-13-41 01:58:2913.1M[facility] HospitalXajsilTCTAYATIOX6963-64-61 01:58:88791OYAud[facility]. [facility] HospitalHEMATOLOGY 2012-09-28 01:58:29* Test Item Value Reference Range Interpretation Comments MCH (test code = MCH) 32.1 pg 27.0-31.0 H [facility] HospitalQvvfplIPSJWJAEUZ5377-76-04 01:58:2933.6M[facility] DLFGWJJCK5208-37-50 11:04:003.7 CzkdpkglkZAQZCRNLH0662-36-32 11:04:006.3M UuustydvgQRDVFLHQW5313-59-47 11:04:0035 SnamisoohCUVTHDGHS4836-55-04 11:04:00 0.3MH YwynrqgzlUPFCTCZJV2833-34-54 11:04:0015 PtzmrdetaEILRKEMKZ4284-57-48 11:04:0081 ZlnxxbbdtYTJZNDBDZ0322-37-57 11:04:00<0.1M [facility] 2012-[facility]10 11:04:002.6M TaackzvwhVQVPROZOU4891-22-70 11:04:001.4 [facility] UDGAFHXCW1333-70-90 11:04:00>0.2MH NjjarurxcYWEKTNOZMJ5466-45-21 11:04:000.4 DuabzzpdoPZXACOVBJX7013-68-82 11:04:000.0 MbbytubszZNONYSMLRI7240-21-29 11:04:000.4 ZqjvcodalUMAMIPAOAO2555-14-33 11:04:000.0 [facility] 2012-08-10 11:04:0020.8 JxwtyyqnzMZJDBWAIYR0400-90-10 11:04:0070.5[facility] ABBMJVTYJY2866-98-74 11:04:003.2M AmyzufukvYNLFFGSBUS5873-92-27 11:04:000.1M VqbxytdbbFYUBTDIJUE1813-34-07 11:04:001.0 IufftwetmUHJSCDFTZE0198-06-74 11:04:008.2M TudlohevqUKWEYDVQUF4762-57-02 11:04:009.6M [facility] 2012-08-10 11:04:0010.3M RyuzujayuJBIYTKNGOT8217-44-72 11:04:003.27[facility] QTIYRVRCGI1865-15-22 11:04:0032.6M IsfbtxwwcRQXQQOYREJ5915-09-21 11:04:0012.7 ZuqwjyivcKRCSPSIJJP2349-70-77 11:04:31772BE MocpxhrliSZWOBLKMBT1505-14-14 11:04:0031.7 AifnhtvxlRMUZOQMQSM4638-38-47 11:04:0096.9 [facility] 2012-08-10 11:04:00* Test Item Value Reference Range Interpretation Comments MCH (test code = MCH) 31.6 pg 27.0-31.0 H XzvoyceygOEHBBVSDNA6193-17-86 11:04:004.6M BvvkkbjxfRFKFHZSTS8911-55-51 11:03:56542OM ZlajmvdavQVHCHGSOZ3520-52-76 11:03:003.2M [facility] 2012-08-09 11:03:005.5 ShmzwlkktKXNJTOXBR3300-88-66 11:03:008.4[facility] BEFATCIRY0326-60-64 11:03:000.4 RduzbieelJBRFVQNGS7685-69-28 11:03:0070 DuwttfbwzWLJRTOXOY5998-13-34 11:03:0022 QiatqnyilGOONGYIUL5842-18-07 11:03:006 JmwhvuzgxIFDHCNYHU1252-27-43 11:03:000.7 RphgtdegeQSTDPYYCV1540-51-79 11:03:0032 DlobaouulWIXVEHDQR7834-41-06 11:03:0083 [facility] 2012-08-09 11:03:002[facility] HospitalEyffsjiyfAKZNZMAVE3529-07-69 11:03:67788WB[facility] KVICFXZTL7511-33-33 11:03:003.8 CilyjoeuoYFUZBDYSM3758-66-65 11:03:30731YRHeywood HospitalNqhaqisrhYLBPNXTDZ3023-77-01 11:03:003[facility] HospitalXoejradxzVRXGXRMOP6386-76-33 11:03:00 10.8[facility] HospitalRqgcifbthFXFXDIGXT0414-66-71 11:03:001.4[facility] HospitalQwvpqdkeaMVSJIPGZY5841-76-37 11:03:002.3MD[facility] InstituteZdhlvohyqOXYJESMGS1887-39-10 11:03:0096 [facility] 2012-08-09 11:03:0026 VxybgwhnuEGOBKLWIEB3307-27-55 11:03:[address] [place] [address] LCQVOULYFN1804-81-60 11:03:03251LRHeywood HospitalKubewscwpPBUPCEXHXI6394-53-94 11:03:003.3M BnwybeeopMRXDTCTPRS1953-72-91 11:03:003.06[facility] HospitalSbmrbddwhSTOUPHXBRY6155-08-36 11:03:009.6M FsvvjodnxGKEEBUAQZB4379-19-12 11:03:0012.7 [facility] 2012-08-09 11:03:0032.4 DxlpfhggzSEFPPOBJOK8118-24-79 11:03:0029.6[facility] RIZRMOETYK8253-83-42 11:03:0096.7[facility] HospitalChivxsldcTRVPRRNNXZ6138-45-57 11:03:00* Test Item Value Reference Range Interpretation Comments MCH (test code = MCH) 31.3 pg 27.0-31.0 H AdluycmjzLVLLESASYW9358-30-50 11:03:000.0 RmmfumdnuCJBXIZRKKQ7969-16-04 11:03:000.2M TnvrotevwNKQHMYORDQ5965-50-09 11:03:000.4 [facility] 2012-08-09 11:03:001.5 GfadtjduzXPSZNBHALE8963-79-69 11:03:001.3[facility] PYZVBEIMVU1556-51-57 11:03:000.7 IhlzougiwCJVKWKXYXO4615-04-58 11:03:0044.5 JuegoolujWKIXJYOGJH1346-19-94 11:03:0010.8 LfyuulqqqUXHNPRGEDP6578-89-24 11:03:005.3M KxcqowibjSMLKXIVITJ0124-21-16 11:03:0038.7 [facility] 2012-08-08 13:00:36Negative (08/08/2012 08:00:36) [facility] 2012-08-06 21:00:000.2M VoirkfjdlVFEGUUQTG1024-63-31 21:00:0014 [facility] ADEJPCSSQ5868-06-52 21:00:007.3M MpszflczdLLJWESETJ3608-66-70 21:00:0028 WintmntibUZITONAJJ4664-10-52 21:00:0043 XmmxktkyiMAZRRSYLA4176-84-59 21:00:00 95 VlauikrrjUTFHLJVVS1170-81-84 21:00:0095 InahcgltuYJYGHUVQO5048-50-12 21:00:67769EL DdztilvknTGIXHIPXR8731-58-57 21:00:000.8 [facility] 2012-08-06 21:00:0010 NelrrvvwfSZDAREPUM8315-46-94 21:00:0087 [facility] IAEVARIMD7213-78-70 21:00:003.5 QzverkabpKPCGCZQFQ1059-01-49 21:00:004.2M MmgytrwzdIITNCJVEW8403-75-21 21:00:45314NO WpfakfucvELPMZSBOE3884-38-55 21:00:00 8.9 NziurvfaoFJNHMHFZB7858-53-63 21:00:003.1M IqawpzstcISEANSUJD2741-34-65 21:00:001.4 JsdnmoiihOWBIEPHZH0310-41-38 21:00:0012.5 [facility] 2012-[facility]06 21:00:0012 IgyrrlatpKMRNNSTNQS9963-88-46 21:00:000.0 [facility] EQEKHHJANR6668-77-08 21:00:001.7 IygoxyxowDPFKOLPLXG4994-04-34 21:00:000.3M MrewohrwtWXCMIFBQGJ6390-00-95 21:00:000.1M EyzqyqtxqXCMLUGUGVI1719-60-65 21:00:002.4 QjqesouonDCSVBJZWCX3934-63-32 21:00:000.5 [facility] 2012-08-06 21:00:002.0 FrioriqfwYCZVEXRMWO5159-47-84 21:00:0041.8 [facility] WVDTAPZUXU8161-92-65 21:00:0048.4 HtwkjvibbBGOWPXZQMC3130-20-87 21:00:006.9 YvxxgfwenGWWNZUHMZX9939-46-51 21:00:004.0 TuuakxizqTYYEHTVQTF6838-08-50 21:00:009.0 UggbahgmzSTTFCJBVVW9744-50-04 21:00:54312BH [facility] 2012-08-06 21:00:0013.2M OeqlxrgzrEMFENHIRHQ4342-99-95 21:00:0035.0 [facility] BOJALWEEYJ8836-73-41 21:00:0011.4 TnenjdclyBDNRGXDDDJ1006-57-63 21:00:003.65 NcildrpkyFGMKOFUAEC8773-25-65 21:00:0095.8 ZtgabmhmlETUWXOPQTV8806-30-17 21:00:0032.6M UlzhircvdLNNMTCSEQE8544-11-57 21:00:00* Test Item Value Reference Range Interpretation Comments MCH (test code = MCH) 31.2 pg 27.0-31.0 H CmigawepbZHMPBBCPA0352-82-11 22:35:007.4 JnxpffgmdPMFKADCAK8072-02-70 22:35:003.1MH KejelswwsEYPKBPKYP4135-91-28 22:35:001.4 [facility] 2012-07-17 22:35:000.2M IpphmbhqpENEFHHNAS4755-87-10 22:35:90551QJ [facility] ZWZYVOLBF1675-92-84 22:35:0045 FaupwoqjrQOQUZAZKN8556-89-74 22:35:22692TD CgurhwrztJPBHVCEHB9010-98-76 22:35:0083 KxbgwddheDMVPTYWDE3775-83-76 22:35:00 3.9MH VkunugeyjQZQPIOXRO7629-55-33 22:35:009 RpnkrjmkxYWEMYRWJJ6371-93-84 22:35:004.3MH VmpfixqiyOVWUAEJCK8217-36-63 22:35:0015.9 [facility] 2012-07-17 22:35:009.2M LhjsjflcaPPQKGPEGD6429-89-21 22:35:30893WH [facility] LUICPCYEI6106-98-26 22:35:0025 QmovmflmlELQRSMOMH8150-15-48 22:35:30686QE FdgadcklpWJCZNEYXT6687-60-95 22:35:000.9[facility]AhmtmtbblXVSTKKDNC0192-60-24 22:35:00 8[facility] HospitalFsouopdrdBEJVEKKRD9992-34-21 22:35:0085[facility] HospitalOrqtzxhdvTBDMYSNVG0564-44-15 21:00:00Negative *NA*(07/17/2012 15:00:00) [facility]ZdxmbktvpLHMJBAJWP1386-18-72 21:00:00Negative *NA*(07/17/2012 15:00:00) [facility]CmsqnkeqrFHBZWJMBL2255-75-96 21:00:00Negative *NA*(07/17/2012 15:00:00) [facility]RcxlkwttbIZTRJHJRT0107-44-93 21:00:00See Note 3(07/17/2012 15:00:00) [facility] HospitalYndzdraiiSRHOZYPVW5954-46-36 21:00:00Negative *NA*(07/17/2012 15:00:00) [facility] HospitalPvsigupbvFGYXYJGIW1122-45-43 21:00:00Negative *NA*(07/17/2012 15:00:00) [facility]YbcwiapxdXITATOGPO3386-16-28 21:00:00Negative *NA*(07/17/2012 15:00:00) [facility] HospitalQcfbhfotrCNBBJBBAX2383-20-65 21:00:00Positive *ABN*(07/17/2012 15:00:00) [facility]EkmccphpvRJIPAQWJNO0089-22-56 21:00:009.1MH XyoqvspgmXIRZEXBJJN4668-60-82 21:00:56252ZIHey[facility] HospitalHEMATOLOGY 2012-07-17 21:00:0012.8[facility] HospitalZiqfcctbbBOTWDUPQWX8881-92-95 21:00:0032.9[facility] FUVUHFDRZE5094-73-31 21:00:00* Test Item Value Reference Range Interpretation Comments MCH (test code = MCH) 31.3 pg 27.0-31.0 H IprvjtxfjTCDYXKARVC3632-65-48 21:00:004.0 UzsmcdrhtZVVTPUUYPB1204-82-78 21:00:0011.7[facility] HospitalWuubjigoqPEJWJVEEYR8149-64-83 21:00:003.73 [facility] 2012-07-17 21:00:0095.0 SqkwspimvQVUOWWPZPY8438-47-70 21:00:0035.5[facility] HDOPOBHFDF6212-35-04 21:00:0054.9[facility] HospitalYvkutwgakYBUWQIPNZM4009-38-42 21:00:002.8[facility] HospitalSpzsoskysYOUVBWEJFR1171-53-15 21:00:007.0[facility] HospitalTmkixitwtYQWUIOSWOH3275-49-60 21:00:0034.7[facility] HospitalRdfpwovmmDORJAPZGEI4338-22-79 21:00:001.4[facility]HEMATOLOGY 2012-07-17 21:00:000.1[facility] InstituteGhmfhlycyXPGTMNGQFB7616-58-87 21:00:000.3[facility] HZORDUGRPC1096-29-38 21:00:002.2[facility] InstituteXwlpftkijEZEWPMJODH8595-21-41 21:00:000.6[facility] InstituteTthpcvpwaEUZQLMCJQA7475-25-92 21:00:000.0[facility] HospitalBtytfufqtUJFVLWWMG1937-85-39 07:22:00Negative (07/16/2012 01:22:00) [facility] HospitalPjnezjskkBFADEITSBD7434-11-31 06:05:00Negative mg/dL (07/16/2012 00:05:00) [facility] HospitalIoohbflptZPVHLHMQYT3634-48-93 06:05:00Negative mg/dL *NA*(07/16/2012 00:05:00) [facility] 2012-07-16 06:05:00Negative mg/dL *NA*(07/16/2012 00:05:00) [facility] XGLVLJMMFM4999-30-89 06:05:001.003[facility] HospitalFzfdmltayOOFJEKWTRD0813-78-72 06:05:007.0[facility] HospitalAhcewlzquASCBPVPJYE8598-57-98 06:05:00Clear (07/16/2012 00:05:00) [facility] TQMZQGWGOD9444-85-46 06:05:00Negative (07/16/2012 00:05:00) [facility] IJIENJHCLG2958-10-13 06:05:00Positive *ABN*(07/16/2012 00:05:00) [facility] ROIWCPCEXG7417-13-68 06:05:00Negative *NA*(07/16/2012 00:05:00) [facility] YRFIEKGMXQ5664-84-80 06:05:00<1MH MacmtwqclXVKAPTGTFG6529-69-24 06:05:00<1MH QblqcsmyqHDHOHXUDOB9412-19-12 06:05:00Negative (07/16/2012 00:05:00) EefitaynfICMTSXBYE0915-23-72 05:53:55169QZ JazrrhkxkCHOZZXNLG1264-04-64 05:53:00 95 FmzpcemcoDAYNXIAZR0643-26-25 05:53:004.0 ZykwnnodmZMBUJTBUO1489-19-40 05:53:0030 YiysajjriTSANFBMQE4516-22-03 05:53:008.9 [facility] 2012-07-16 05:53:009 JbynypdalSRDLPEBEL0574-55-53 05:53:86165ZM [facility] EVEJDSQQC6833-48-51 05:53:000.8 XrzeibmfzEESJBLXZR1216-35-23 05:53:73674IT YkdshjgbpJTHUDKWOJ7419-84-53 05:53:004.0 WzncrcfsfIALXMLUAS7126-77-74 05:53:00 92 IcddflcjgUFJXKIRGW9874-23-44 05:53:007.2M EnajrooqgQDSNLZYZA9848-43-54 05:53:41977KR HugbvohcaXSMOHSMFK4627-22-92 05:53:0098 [facility] 2012-07-16 05:53:000.2M MwhykfqtiWUSQWMZMH1298-25-53 05:53:0065 [facility] VCIZZXXDZ5341-50-91 05:53:0011 TfdhtfamvYDCSNVPLA7644-95-21 05:53:0012.0 FpepaxmarWLVNLPYBW0148-39-42 05:53:003.2M HkezjyfuaVTGGSZDZV6258-16-59 05:53:00 1.2M ZqdwvgjsuUYAZSXVQKX4876-94-35 05:53:001.4 RaxbhjybgUQKZIUAZWX0276-99-51 05:53:001.6M BhqusmrnjTQUQECYYNJ2874-29-85 05:53:004.1M [facility] 2012-07-16 05:53:000.6M KjesjtdxoOZATYCZADJ0562-55-07 05:53:009.8 [facility] ETEPFYXEZD4850-13-88 05:53:000.1M DslwrusoqFRKZETNZMD6202-52-48 05:53:000.4 ZdrxqeprrMHDRFIDIVI8490-02-55 05:53:000.0 BtybgdcivDMIINTWAUZ9600-08-36 05:53:0039.4MH UejzmcdmrTZDBPLZYNK4934-59-10 05:53:0046.1[facility] InstituteHE[facility] 2012-07-16 05:53:24425FGHeywood HospitalEfreelijnGXYEHGIDRU4151-01-05 05:53:0012.9[facility] LDZCKBYSLT0539-88-30 05:53:008.4[facility] HospitalPmwcikuxvYATMRKYSNX7962-27-56 05:53:0096.2[facility] InstituteWrbmhhnwsCQJGBFXJES1513-91-56 05:53:003.6[facility] InstituteYqiyqlypgTXBPEYPSGJ5570-69-34 05:53:0032.6[facility] InstituteGsvcieeiaFWCMURPDNL6650-37-45 05:53:00* Test Item Value Reference Range Interpretation Comments MCH (test code = MCH) 31.4 pg 27.0-31.0 H [facility] ChildrenFtwyajrnhCUOKIEUELF2247-18-19 05:53:0033.4[facility] HospitalAxmyjuvhsPYFSMKXHCO2669-90-16 05:53:003.48[facility] ChildrenRhehlqllnWBDQBSRDJL1236-57-71 05:53:0010.9[facility] ZTYGZFU0391-44-10 18:07:0068[facility] HospitalTricdbdalVMHGJXCNWZ4820-30-60 19:30:52 Negative mg/dL (07/09/2012 13:30:52) [facility]HpxlatvakPVXRAESBRO9832-93-80 19:30:52 Negative *NA*(07/09/2012 13:30:52) [facility] HospitalBlhrbxnngJGRCFGCNVW5984-04-42 19:30:52 Negative mg/dL *NA*(07/09/2012 13:30:52) [facility] HospitalCozxwuoyzTWKZGCOZPW8538-73-37 19:30:52Negative (07/09/2012 13:30:52) [facility] HospitalEjfgaxswpIBGHDUPVEP5119-23-36 19:30:52Moderate *ABN*(07/09/2012 13:30:52) [facility] HospitalLwxlzekfjPODXCCGMCT2371-35-30 19:30:52Negative mg/dL *NA*(07/09/2012 13:30:52) [facility] 2012-07-09 19:30:52Trace *ABN*(07/09/2012 13:30:52) [facility]URINALYS 2012-07-09 19:30:521.005[facility]WwclftcdtIGAKSRWHQN4114-69-10 19:30:52Clear (07/09/2012 13:30:52) RqheimazyPPKGRVVWJP5995-85-78 19:30:526.0[facility] BLOOD BANK AURLAUJ0668-94-79 19:04:00Negative (07/09/2012 13:04:00) PdiiswhamNIDNKQUYZ7074-99-36 18:58:0012 LobfgctypTFRREEHCT3356-79-21 18:58:00 12.5 PhpjyaohxLYNSGXERQ8909-25-49 18:58:001.3M QjgtdwdxvNWUFMOXMF9026-15-26 18:58:003.0 YyrxbwsadZTVJTSSEH6322-03-17 18:58:0073 [facility] 2012-07-09 18:58:003.8 UpuvpyeloRFNVJWVQU3767-01-36 18:58:009.5[facility] WTFJEJAFK5558-52-90 18:58:72488KL CdaacczbfCSVRJURNT9208-96-23 18:58:0031 VpekibfiwYULONYJFW9782-82-87 18:58:33017GG QmlbwexqzFRYIOXTCB4800-77-02 18:58:00 1.0 DulgxsmsoMBIYFRORT7194-77-29 18:58:005.5 WurmrvajsQBDERWERT1135-95-13 18:58:0012 EukjfctyjWUNJNLYDE8714-61-63 18:58:0084 [facility] 2012-07-09 18:58:006.8 IbfwllvhrBPZOHXYBK8297-10-94 18:58:0092[facility] BZWNFTITX9444-84-34 18:58:000.2M BrhuevoyvXWZWJHNYF4215-94-37 18:58:0044 FrsmmcosoBICCXYPBW5703-68-50 18:58:0013 OxifffduiVQPWXTXJRS2918-39-10 18:58:00 0.2M OavitlmvgQZXTKPIXOE0456-44-70 18:58:000.3M CpmmwxuyvXUKCQOHNGQ3451-23-25 18:58:004.7 BwaviorflEMELMJIWYS7998-71-87 18:58:0010.2M [facility] 2012-07-09 18:58:0050.5 HbjrlginhYOBFGJPEAB3212-40-32 18:58:000.0 [facility] TVKPIYVODJ4308-49-70 18:58:000.3M JqxfikdywLSAGLWAFVG8707-84-22 18:58:001.7[facility] HospitalQxlapfxhyQBKRQZGWCZ1152-00-85 18:58:001.1M GwtscgaraIDMQBFAEUQ6026-02-98 18:58:0034.3M UpggvskkaBWIICHQTFI9730-18-09 18:58:003.35 [facility] 2012-07-09 18:58:0012.9 RgpmkjhbbSGQGZUHRVM0751-70-51 18:58:00* Test Item Value Reference Range Interpretation Comments MCH (test code = MCH) 31.7 pg 27.0-31.0 H VaoyeuciaPXSMUSIKPL9800-61-72 18:58:98741MI TajwfgxmeNJOCXACAUD9753-32-53 18:58:0032.5 FslavwmqoNDUJQVYAUK4306-26-45 18:58:0097.4 [facility] 2012-07-09 18:58:0032.7 PztcpbnjvNMWFURWVSM6478-98-76 18:58:008.9[facility] GFYHJEISRP2918-99-63 18:58:003.3M TefifwixbZIYXMPVKVR0408-84-78 18:58:0010.6[facility] InstituteRkfjryeakAYKXSFJRKV2818-78-05 07:50:001.009[facility] HospitalYwesladuiKEGCRHGWUS0024-20-03 07:50:00Clear (07/08/2012 01:50:00) [facility] HospitalJlqfqqigfAIIJVHHFTP0794-66-46 07:50:00 Positive *ABN*(07/08/2012 01:50:00) [facility] HospitalTyozysajgBAWZHSVISN5936-41-97 07:50:00 Negative (07/08/2012 01:50:00) [facility] HospitalLoucjzxcnLRYGNWRQXW7860-44-29 07:50:00 Negative (07/08/2012 01:50:00) [facility] HospitalLlxiaczskYCKZRPOWBV7735-03-41 07:50:004.0[facility] HospitalDblllkkciKTZSQUXJGP2955-10-45 07:50:00Negative *NA*(07/08/2012 01:50:00) [facility] HospitalThzllddmwNHISPNTLLK0749-12-60 07:50:00Negative mg/dL *NA*(07/08/2012 01:50:00) [facility] HospitalXzukegdetTQTGOSFSLW0251-40-62 07:50:00Negative mg/dL *NA*(07/08/2012 01:50:00) RseeyvgvjEXOUOAUZEQ6200-44-75 07:50:00Negative mg/dL (07/08/2012 01:50:00) WqvtaimgaQHEZKVACXX2471-66-70 07:50:006.0 [facility] 2012-07-07 06:55:0083 CwxfjkvfoUGHJICECZ5197-04-88 06:55:003.6[facility] BPAYCROIX3022-10-70 06:55:23518LH HlrliriyiMDHGWLJAQ1833-36-74 06:55:000.9 EqgmbnlopEJECROSCW9780-60-07 06:55:0014[facility] HospitalAczlvdcshYTJSIIEPS1459-94-63 06:55:00 88 UaaymnrigESYTUPCGO1621-94-35 06:55:0067 KvxvqtkvpJWQXLKSXE4706-65-68 06:55:003.5 IcxjduyueEKRJUKFQD0394-34-48 06:55:001.2M [facility] 2012-07-07 06:55:008.6M OzsdeqerdQYMCDVYBV2810-19-12 06:55:0016[facility] HXRCEMUJL6029-50-19 06:55:0012.6[facility] InstituteZrnocetxtXMTSZUPOW7623-63-38 06:55:004.1[facility] InstituteYsnirliweOPTSCIVTR6046-91-51 06:55:007.6[facility] InstituteUanmxcebrQNOQLENHM2209-88-15 06:55:00 100[facility] HospitalOcyuawzitAQIDSBINA5814-64-35 06:55:0031[facility] HospitalZlsetoyqhRQEHZVDUY6337-73-54 06:55:000.1M JjiloqjayVWREPFLQJ1117-07-22 06:55:0028 [facility] 2012-07-07 06:55:45754KI KfciahspfCNTXHGBDVV1453-30-93 06:55:18066BE[facility] SCWLORMOUP0994-09-94 06:55:009.5 DlgqxiewyHOJMOHPUXF3125-92-53 06:55:0011.0 LdvhwbdhoAZSDMBGDZE2793-82-43 06:55:0095.8 PidmfrldvEQQMUHEDCQ6842-92-72 06:55:00* Test Item Value Reference Range Interpretation Comments MCH (test code = MCH) 31.6 pg 27.0-31.0 H OjipyjtomKLQUXLKHSO2089-17-38 06:55:0033.0 DblgjxodoKHQIBYYRXP9472-91-21 06:55:003.3[facility] InstituteMsnycjxitHEQKPYAHLM5153-99-70 06:55:003.47 [facility] 2012-07-07 06:55:0013.1M PbqzzzehjLMPWRCBCDR8986-29-02 06:55:0033.2[facility] JTQDLTCMZQ3811-47-40 06:55:0039.4[facility] HospitalRjmqtdyvaBLCKUFYEAW8968-49-20 06:55:000.1[facility] InstituteBmcweistgENDYDHYIVQ0273-57-22 06:55:000.0 NuwamdfvxKCXGHFOIEP2199-75-82 06:55:0012.7 GobulqlxpCUSAZJZURE0102-80-90 06:55:0044.6M [facility] 2012-07-07 06:55:002.7 NcxsnsdmkMIEAUROOYR8127-73-59 06:55:000.6[facility] FMBUARGCVR5996-02-38 06:55:001.3[facility] InstituteRtuzwekjqVJLKOTHCKY7723-67-61 06:55:001.5[facility] HospitalKfkszdyrqTUKRNPJBKK9638-62-09 06:55:000.4[facility] HospitalTasnksajhSMFSIOWLX9664-47-37 05:36:00Negative (07/06/2012 23:36:00) [facility] HospitalNxfqjmbcyXQVYAFKYXB5422-19-37 05:36:00<1MH QudowhxhyMQIWEMXZXC3307-39-72 05:36:00<1[facility] 05:36:00Negative mg/dL *NA*(07/06/2012 23:36:00) [facility] XWFMMFSKZE9057-58-53 05:36:00Negative *NA*(07/06/2012 23:36:00) [facility] DDQPMBGZYI3088-33-03 05:36:00Negative (07/06/2012 23:36:00) [facility] YUFRUZJAPX6964-49-69 05:36:00Negative (07/06/2012 23:36:00) [facility] JGEXQAUDVZ6531-59-05 05:36:00Negative (07/06/2012 23:36:00) [facility] LWUYRBUTQI1159-05-27 05:36:006.0[facility] HospitalIpfrrbsvcLUHMXWCUNO3805-16-11 05:36:00 Negative mg/dL (07/06/2012 23:36:00) [facility] HospitalTxeafazrgYARVKIGHQJ3639-88-53 05:36:00 Negative mg/dL *NA*(07/06/2012 23:36:00) [facility] HospitalGbzauymxxWEHVZTARDG2968-29-51 05:36:00Yellow *NA*(07/06/2012 23:36:00) [facility] HospitalVjxdqatitAMVVVTWZKS5705-17-78 05:36:00Clear (07/06/2012 23:36:00) [facility] HospitalZwqbgedhwWUWFWSHIQV2269-38-15 05:36:00 1.006[facility] HospitalWwufyjtslMFOLXFOMKL6252-83-01 14:30:00Yellow *NA*(05/31/2012 08:30:00) [facility] HospitalAwkjkzyldXDEGPQBKMP2467-06-19 14:30:00Clear (05/31/2012 08:30:00) [facility] HospitalBjxrbrjwxMHMANISDIT7820-52-83 14:30:001.016[facility] HospitalNxmrmpvjwLUKPDGZUVQ1657-33-72 14:30:00Negative mg/dL (05/31/2012 08:30:00) [facility] HospitalVffjedbhiBRWWRYTPNM2016-13-34 14:30:00Negative mg/dL *NA*(05/31/2012 08:30:00) [facility] 2012-05-31 14:30:005.0[facility] HospitalBfsjxyckzQMVTMMZBJU5096-51-87 14:30:002[facility] BHDKTYHWWX1218-18-95 14:30:00<1MH WiwsovinyBZREFZJNEN6338-29-78 14:30:00Few /LPF *NA*(05/31/2012 08:30:00) [facility] HospitalZaeehtmfnFYBOPSCJEF3147-23-43 14:30:00Negative *NA*(05/31/2012 08:30:00) [facility] HospitalIlfislajcQQVTIXZPYT3048-23-38 14:30:00Negative mg/dL *NA*(05/31/2012 08:30:00) [facility] HospitalChkiopnfnXHANLZXILD4161-71-26 14:30:00 Negative (05/31/2012 08:30:00) [facility] HospitalSzpyyycipXZRHSHTRCL2259-55-79 14:30:00 Negative (05/31/2012 08:30:00) [facility] HospitalGtvnswyqyPMWLXSAOLZ5418-15-56 14:30:00Small *ABN*(05/31/2012 08:30:00) VgzleieonVAUCNNMRAC5625-25-59 14:30:00Occasional /LPF *NA*(05/31/2012 08:30:00) EkjievjmqVDBZLHIZP4227-14-63 14:03:00<0.5MH AcypcoadhTWFPOOMDD1304-04-77 14:03:00<0.02 EdhvyzrluCMRTSFQCT9470-04-29 14:03:0017 BkcnjapttWNYNYQKZJ7243-34-19 14:03:002.9 [facility] 2012-05-31 14:03:000.2MH UspeefptvONZEGQJBB6374-23-85 14:03:001.5 [facility] KMTBSCQVQ3725-72-28 14:03:0086 IqsqsrcwpWVIQNNCVM6912-79-65 14:03:0061 UorzwnwjfFYTWBGIID2117-15-15 14:03:007.2M XedekdzfmMAWJIQDVM4061-74-58 14:03:00 83 VpkaadbnvTXUKALVTT8515-49-68 14:03:0014 ZtxwehjquKPNQKOTUT6609-34-00 14:03:004.3MH IedekbjveTCSNCNKMO3020-93-56 14:03:0011.5 [facility] 2012-05-31 14:03:009.0 ZtwgyfsvmPWZBSDUBF8815-38-73 14:03:0028[facility] FHMDWUCFP6462-21-39 14:03:68224JZ NcijzxbkyUYBETRTRV7493-15-12 14:03:77917FS FqtnuvnfbFIPXYXWVZ0628-85-69 14:03:000.9 FherdoawaWMFTMKOMV8732-30-32 14:03:00 3.5MH PajkykwpxEIKXTTPVR3116-78-15 14:03:42207LP IivbzdmyhSVCFPVNMG5544-22-69 14:03:0013 SnedwmeszGGJWNWZTG2038-31-77 14:03:0074 [facility] 2012-05-31 14:03:00<0.7 TcsrniihmIOMBIVDWOD5789-93-44 14:03:000.93MH [facility] PJMQLMFCHK4080-49-55 14:03:00* Test Item Value Reference Range Interpretation Comments PT (test code = PT) 12.7 s 12.0-14.7 N UunpqtshoKZTJEZEEYT8100-04-30 14:03:0012.7 PohpnhqvyGPLWDEZCET7883-40-14 14:03:00* Test Item Value Reference Range Interpretation Comments MCH (test code = MCH) 31.9 pg 27.0-31.0 H SmnddnfnsTTBQIEKTIK4075-39-01 14:03:0033.0 OycttvwcfSELIULPHWB5104-90-20 14:03:003.83 ZsenamykbVWBTLCSXRY7374-18-13 14:03:0012.2M [facility] 2012-05-31 14:03:0037.0 DiaymloqsWZPAZUINAV5576-29-06 14:03:0096.6M [facility] VFXCALCPHT3207-89-39 14:03:005.7 VfacjxvgkACBVJLUQWB5340-29-10 14:03:68793XJ VbypprjpePJITEWALZO7024-65-01 14:03:009.6M TogckvnadSNICYZGHIZ2454-40-96 14:03:000.5 GelnhykdaUGUHRYNDED6755-63-89 14:03:003.3M [facility] 2012-05-31 14:03:0058.7 YqrcnxbrgCOWGAXFPBB6341-15-09 14:03:001.9[facility] QQLKWNYUTD2332-21-39 14:03:0033.6M NdixqiwrjUTMVVULZUL9275-48-81 14:03:000.3M CkuimxbsxXSVNQOSELM5508-42-64 14:03:005.5 PllvoiyvyBKSGWDJGWC5197-16-56 14:03:001.7 McifxojtcWGLKWKCVCU2846-92-88 14:03:000.0 [facility] 2012-05-31 14:03:000.[facility] QryylbsjtDDHOCROEF2308-66-50 20:43:000.2M [facility] NAKUYHQAX1800-50-84 20:43:0017 DpboqgapuGFKIETMCF4054-86-56 20:43:0077 QiebpbbinOZIWDCVLX3206-53-08 20:43:006.9 HyfoahfiiLRVCFRQYO7945-58-31 20:43:00 49 HrgppravmINZRAMOMN8952-99-17 20:43:0095 ViwwzldjiPYEYPLGFN0265-77-53 20:43:008.6M ZktbnegdkWMJJIUFHS0064-56-61 20:43:003.9 [facility] 2012-04-08 20:43:0028 IkkpoplmgCJCCGFWTG1767-59-06 20:43:[facility] PHDFWJTNC9095-03-14 20:43:0085 LtlrrvmkpWHMVGRKWK2085-75-94 20:43:000.8 MtxzqjaikGWLGKJZWQ7703-78-88 20:43:004.2M BhgqnrpkjCJYVGPRXO9460-63-69 20:43:00 145 OxlfvcyeuOYBTJQBOM4504-93-65 20:43:0015 JtabnkojaNRBYNGUGV0457-09-86 20:43:001.3MH UcnflphonXGKUIMPVV7476-68-07 20:43:003.0 [facility] 2012-04-08 20:43:0015.2M LtdxqwtygPFTAPBALU7758-39-90 20:43:0019[facility] AENTVLMHSK5430-22-34 20:43:000.0 XxbixzzwlDTGROPUXQT7510-22-67 20:43:000.1M ScdlarnckQXXRLJBTCA3760-70-66 20:43:000.4 OxajvvnjsYQYCNPFCBZ1690-79-44 20:43:002.4 RzrfkmuoxKUWLBZIZGC9221-76-72 20:43:000.6M [facility] 2012-04-08 20:43:003.1M KbbadjaebJEHLSTGOYF5632-08-29 20:43:001.6[facility] WLUPMOORED2585-20-72 20:43:008.6M GarssmmktYNJRTBAEMX6286-82-51 20:43:0052.7 TjdcvdyulQHEFEWGBAM4079-93-21 20:43:0035.0 JqjfzbrhrNZEIPHOWSO3847-40-31 20:43:09595EU QnmpkoooiPGFNOVDWYU3656-61-58 20:43:0012.9 [facility] 2012-04-08 20:43:009.2M ZthrtdykhNNHOJEJWSU7123-30-82 20:43:0011.9[facility] JMXCKNVPSH9839-68-07 20:43:003.64 ZbuyhruggFNWTPSMOZM6841-32-81 20:43:0035.3M IhqahjgnaWBCAJWBOJT8513-51-40 20:43:0097.2M VcrblzuzzXNHDVSBMOH9684-35-74 20:43:00* Test Item Value Reference Range Interpretation Comments MCH (test code = MCH) 32.6 pg 27.0-31.0 [facility]GlyowickeBDCBQJIDZP9999-71-77 20:43:0033.6[facility]SpbaipxhzJAPGGRICBZ7756-65-67 20:43:004.5[facility]ElznpmsxpEYGSLHACQ1567-89-51 03:46:00See Note 4(01/24/2012 22:46:00) [facility] MassachusettsNzunsizwpKGNMHSWTF6761-42-38 03:46:00Negative *NA*(01/24/2012 22:46:00) [facility] MassachusettsUvlykqhrtQAKBPVQPG3097-80-13 03:46:00Negative *NA*(01/24/2012 22:46:00) [facility] MassachusettsXnkxzapgzQXMUYWMMD8737-39-98 03:46:00Negative *NA*(01/24/2012 22:46:00) [facility] MassachusettsLbvrsetthIRRJPAECK8510-12-61 03:46:00Negative *NA*(01/24/2012 22:46:00) [facility] MassachusettsQkkhvrbjbROMJJHZCI3941-42-79 03:46:00Negative *NA*(01/24/2012 22:46:00) [facility] MassachusettsYxorixulyPMETEFHMF9308-36-71 03:46:00Negative *NA*(01/24/2012 22:46:00) [facility] MassachusettsQjmfeehkvHDRIZIPLQ9903-53-13 03:46:00Positive *ABN*(01/24/2012 22:46:00) [facility]JrujhoetzFQFJDGYZCO3445-55-77 03:46:00Negative (01/24/2012 22:46:00) [facility] CenterMagcvcaqxGLZXZKQHBE1584-94-73 03:46:00Negative *NA*(01/24/2012 22:46:00) [facility] CenterCmbjroqdfVTRRPNNHYS6130-35-79 03:46:00Negative mg/dL *NA*(01/24/2012 22:46:00) [facility] CenterOiaqjjdxiONVYMVHSSC9255-62-81 03:46:00Occasional /LPF *NA*(01/24/2012 22:46:00) [facility] CenterMtjiniqmtSZLZEVSINK3151-11-76 03:46:00Trace *ABN*(01/24/2012 22:46:00) [facility] CenterLtzafyiscTQCPVVCIPC9996-40-75 03:46:00Negative (01/24/2012 22:46:00) [facility] CenterGzgbjdthzYNNIRKSWWL3612-79-03 03:46:002 [facility] PHFIYMGYNY8174-24-78 03:46:003 WbhfwpsutSYWKPRSYVL7294-68-05 03:46:00Negative mg/dL *NA*(01/24/2012 22:46:00) VqotlqbekWIVELVHRKH2242-79-42 03:46:00 Negative mg/dL (01/24/2012 22:46:00) JtpnyqsrzCUMYZYOCRM8133-98-84 03:46:00 6.0MH YeudiibeoHMDMDZLSYL8761-09-12 03:46:00Clear (01/24/2012 22:46:00) UnongokdeHRKGIIRYVK5846-52-58 03:46:001.002 [facility]BED[facility]IDE GLUCOSE TESTING 2012-01-25 03:45:48299GS FgelhwmubKALAIVECO1708-49-85 02:46:003.1M [facility] MGXXVCBPK7266-82-27 02:46:001.4 LpzjfvywrHAYXTXQBZ0487-97-60 02:46:0014 AslmhrhmaPNVLVIWKI5696-89-41 02:46:0013.5 VlrhvwlshWRZLBKUOR4817-32-94 02:46:0076 PhnragacuKSKWBTRPL2785-22-63 02:46:007.3MH [facility] 2012-01-25 02:46:0045 XsdrcqgsaPJOCVJULI8059-17-63 02:46:0095 [facility] ELECTGWYD5440-77-22 02:46:000.2M EwhiueenqIHBQWQMZW3349-76-35 02:46:0079 BbkhnfcqxCPIHRKQFL7695-93-05 02:46:0011 UamqnihjbFSZUIQHFL5546-00-79 02:46:00 0.8 VnwsbdyotLRMUMGGNW8174-01-83 02:46:40525DK SfivfjgxvTNVELJWTT3945-98-98 02:46:0026 QzovttgfmAJRNCWQCB2932-97-34 02:46:99472UL [facility] 2012-01-25 02:46:003.5 CuarcpibxLQRGPMFSJ8443-65-44 02:46:009.1M [facility] ISOGPOTDQ0284-15-13 02:46:004.2M PnnkewvruFTMNNJDLIS4451-80-39 02:46:000.4 UwezvdcdqQOPJANPLJE4536-82-08 02:46:004.1M AtqqecqzfTTUHPMYEOE6212-26-45 02:46:002.2M MejyjzwcqJMLDOZNBHG6339-62-21 02:46:001.4 [facility] 2012-01-25 02:46:008.5 KnikojryaAAJVTPBVVD9282-40-94 02:46:000.0[facility] HIFCLGYVMR6019-83-62 02:46:000.4[facility] HospitalAfzrxoksdEJVVFQPEXC2779-68-88 02:46:000.2M QayxwjvveIAJXLVBGJC5511-19-26 02:46:0034.7 ImghhcucnBATHCSMNKI9990-38-71 02:46:0052.3M JrdxoeirfCEIZYDHBNN3774-76-83 02:46:003.72 [facility] 2012-01-25 02:46:0095.6M MhfzscqwdQFCNYHHIYI4298-26-95 02:46:0035.6[facility] KOLCFDGXZX7658-45-81 02:46:0011.8[facility] HospitalQzyjnwvdfZCUSTGUSVT9572-98-86 02:46:00* Test Item Value Reference Range Interpretation Comments MCH (test code = MCH) 31.7 pg 27.0-31.0 H [facility] HospitalRvbylldbnCQSUMEXVXP7704-76-54 02:46:0033.2[facility] InstituteCmyguagqdOUZCLJXPMX9382-24-62 02:46:0014.1[facility] InstituteXucqsjmgpPCKAWUOVGL3450-04-59 02:46:004.2M [facility] 2012-01-25 02:46:31970VKHeywood HospitalZhqwptpzhSYHSCGUJWG6596-60-71 02:46:009.9[facility] BEDSIDE GLUCOSE XCCZCDL4777-75-01 02:32:0091[facility] GLUCOSE TESTING 2012-01-02 12:48:0065[facility] HospitalMxtxsfudkQPVDSCMXO1281-16-96 10:05:0011.5[facility] TONUCWKMI6786-69-82 10:05:004[facility] HospitalOyojotjxdJZNGGTCOZ0394-72-15 10:05:000.6[facility] InstituteBururjmbvSRANPWNOK1480-18-83 10:05:008.3[facility] InstituteYjrolxoueUHEEAULMC0040-72-08 10:05:00 26[facility] HospitalDditiwxyhSDVLXNNFD2435-42-56 10:05:0070[facility] HospitalUswzdnvpyBOXNLFWYR8592-26-65 10:05:72824WBTaunton State HospitalPitduwhzvGIYTAPDFA6406-10-40 10:05:003.5 [facility] 2012-01-02 10:05:54529TTHeywood HospitalBelrybxbpGUVRCBZGVE8120-93-27 10:05:000.0[facility] SANVBXPFXR5721-69-58 10:05:000.2[facility] InstituteClursyrqoNDERRHIYAM4038-42-42 10:05:000.1[facility] InstituteAllgjintdVNATTHCGEO0056-52-61 10:05:001.6[facility] InstituteZdfawqyzoGMUPRENCNV8573-85-16 10:05:000.8[facility] HospitalXtwdlhgtpSCVBGMSPFD5800-53-10 10:05:000.6M [facility] 2012-01-02 10:05:004.9[facility] HospitalXqfhyesboMDDIFTRDWQ5234-53-94 10:05:0063.1[facility] KHXNXXXXLN0080-91-53 10:05:007.1[facility] InstituteXltneldtmDYGPTNGSGV5071-82-38 10:05:00Normal (01/02/2012 05:05:00) [facility] ChildrenFlnaqxqfeTHWTNXTQVF0272-57-93 10:05:0024.1[facility] [facility] OKPKBYZZAS7411-55-60 10:05:00Normal (01/02/2012 05:05:00) [facility] RPJTGPFNOC5548-07-06 10:05:001.08[facility] HospitalPxdpnmnyzIIUGLNTSTT0237-36-98 10:05:00* Test Item Value Reference Range Interpretation Comments PT (test code = PT) 14.2 s 12.0-14.7 N [facility] ChildrenAxtpeucryRWIGQOCNYM1307-77-88 10:05:00* Test Item Value Reference Range Interpretation Comments PTT (test code = PTT) 32.6 s 22.9-35.8 N [facility]WovvdoznjRNSNECJFHM7956-31-53 10:05:0028.[address] [place], [place] [address]FrmjpgafvICBHZXOIOA5180-94-57 10:05:009.5[facility] HospitalVhiodjmgmCYNKQZXEIL4106-02-09 10:05:00* Test Item Value Reference Range Interpretation Comments MCH (test code = MCH) 31.8 pg 27.0-31.0 H [facility] HospitalLgyjmmyuoWURDFSHCHY1945-54-50 10:05:0094.3[facility] InstituteUgsoiwwkbCIJXQWJZUQ5902-76-03 10:05:0033.8[facility] HospitalBtdbqvdeuUYLRDFRGZB8270-37-96 10:05:93302HX [facility] 2012-01-02 10:05:0016.1[facility] InstituteXeeiqflxtPVXHJVDETM9100-36-60 10:05:0010.4[facility] UNNGUADAXT7418-20-53 10:05:002.99M UzuyvefypTJTZAAFBSA4394-76-69 10:05:002.6M MaldoxftbVIPJXXDSJR2629-58-58 05:15:0010.7 VyxrwincdQDWBXOTVAO0183-52-62 23:30:0010.4[facility] MFHZSJL6366-57-00 13:51:00Negative (01/01/2012 08:51:00) MdiyzofhbLKHTJJGNYL3890-37-00 23:55:0010.[address] [place] [address] EJIALPWUPT4833-23-28 23:55:53103NS LzbwmwdbnTUOIGAMUKW7353-50-96 23:55:0032.[facility] DdtpmgpvwTDAJIRPWAU0193-64-97 23:55:0016.5 CdtchoqthXFYCJIGZHQ9957-86-39 23:55:0094.[facility] WnqhggjxtSGNQLAOQKT3108-18-33 23:55:0033.8 [facility] 2011-12-31 23:55:00* Test Item Value Reference Range Interpretation Comments MCH (test code = MCH) 31.8 pg 27.0-31.0 H RnwqrggiiIFZFFDQNZC0123-93-61 23:55:003.3M PpxzddoljDFXZKXYRIJ5444-49-54 23:55:003.42 PwmyjzognIGKOJQWDWD5714-93-76 23:55:000.2M [facility] 2011-12-31 23:55:000.2M TvjwjvvipGVOYZHPFSJ4448-50-13 23:55:000.0[facility] TRXXYYGMGC2697-75-52 23:55:001.[facility] PdxifbfpjPNTZFWUDPF2571-23-12 23:55:004.5 UdamggiesIGIJFIDRYC9172-03-38 23:55:000.8 RziuasfvvFEFEPDMEXI0545-39-29 23:55:0036.[facility] XmnmqpvzxSDCEDPSSTY3224-06-55 23:55:0052.[facility] 2011-12-31 23:55:005.7 [address]yeoelxZNHNIBLPWV9086-96-96 23:55:001.[address] [place] [address] STOOL IIEIZ5700-30-80 05:13:00Positive *ABN*(12/31/2011 00:13:00) [facility] RIHFUDPAP8490-59-93 04:17:0010MH LoyznoggzSBITOXBZO1266-42-66 04:17:004.5 HdlydvuzuJEJFFVGIQ9333-74-41 04:17:0046 RljorwgqnJPCJPEDIG3404-47-22 04:17:00 0.2MH UpqukvftvCSJXJXQAS1376-34-90 04:17:0023 XbkixoylbYJXDSYJYO6401-65-54 04:17:003.8 VkxiuuomuCJHZYTBDJ8039-96-92 04:17:56248DB [facility] 2011-12-31 04:17:007.9 KtpbftwcaPLULUYZKO2509-41-67 04:17:0094 [facility] SDKPHRRMW9382-26-49 04:17:0091 OprepelmqMGQAHTPXQ9907-85-22 04:17:009.3M ZvnledcdwOZQSIBZBR2427-58-95 04:17:0014 UrpfybifuDCITOFWHJ0910-48-98 04:17:00 140 QrpksxqjtPTMZWODFR8428-05-27 04:17:000.8 KcdbogdvuVKAOFJKYM8698-18-96 04:17:0013.8 IjksfyulyATGUNSWOY1446-38-66 04:17:0018 [facility] 2011-12-31 04:17:001.3M XkbohaouyQAEJXXZAX6722-46-11 04:17:003.4 [facility] HVVMYCGMY8810-02-34 04:17:01023QI HfzojsfrzFQOBUHZPBO8309-69-87 04:17:0016.3M ErdfylijgZOIDESHNRX9290-58-09 04:17:06071YQ IlcklwfuxTEGQVAKRQD2056-93-86 04:17:009.9 SdrcgyjkqMTZDXDEHEO2379-12-95 04:17:0038.6M [facility] 2011-12-31 04:17:0094.4 FgznnnttyPWFPQTMBXL3435-53-68 04:17:00* Test Item Value Reference Range Interpretation Comments MCH (test code = MCH) 31.3 pg 27.0-31.0 H LrwdhzffwOWXTMNYDJS4603-75-85 04:17:0033.2M GcbfmejonHVDCTXPPAY6652-74-09 04:17:006.5 LdkdesulsNLFFAMZYIA0736-48-33 04:17:0012.8 [facility] 2011-12-31 04:17:004.09 MzfhngkawODCEGEUILP8014-12-67 04:17:000.0[facility] XKGZGDYBVH7670-50-03 04:17:000.4[facility] HospitalRlxexyfkbJJGLWCSRPR2666-24-82 04:17:000.1[facility] InstituteJejolkjeaLKDODBAODE1801-55-62 04:17:0058.4[facility] HospitalAhtyhoqcwNJCSSLBIFZ7752-36-71 04:17:[address] [place], [place] [address]ArhfojtehSGMZGSRVHT2510-52-75 04:17:[address] [place], [place] [address]HEMATOLOGY 2011-12-31 04:17:0033.0[facility] HospitalLxusykpipOPXKPCYEHZ9913-33-64 04:17:000.4[facility] XVHILMNDAK0521-13-24 04:17:003.8[facility] HospitalNlfusjrmuNTGKMISZBC0860-93-59 04:17:[address] [place], [place] [address]RxyurzzvrYURMSFPIXV9888-02-57 04:17:00Negative *NA*(12/30/2011 23:17:00) [facility] HospitalBooaxrpttUKJIRFLQPE7965-71-67 04:17:001[facility] HospitalWdfkddegrSQBHYTRNQO9977-85-55 04:17:[address] [place], [place] [address]MgawfchqkNPNLJEUXOM0795-43-90 04:17:00Negative (12/30/2011 23:17:00) [facility] HospitalTghdmwuxjXBBVDEQLGK6510-46-31 04:17:00Negative (12/30/2011 23:17:00) [facility] HospitalSqheihrbsWENLLEAMPM0772-93-55 04:17:00Negative (12/30/2011 23:17:00) [facility] HospitalBqvgrqpnnKGXYSKMAFO8392-91-30 04:17:00Occasional /LPF *NA*(12/30/2011 23:17:00) [facility] HospitalDitslrqinBUDWREKEIN7170-82-17 04:17:001[facility] HospitalZgikyojcnMTSRKMSUBB6113-91-59 04:17:00Negative mg/dL *NA*(12/30/2011 23:17:00) [facility] 2011-12-31 04:17:005.0[facility] HospitalYlejihrpnIFKCCETWRK3939-29-53 04:17:00Negative mg/dL (12/30/2011 23:17:00) [facility] HospitalNsavwbkywJXFYDQDAFA6379-64-42 04:17:00Negative mg/dL *NA*(12/30/2011 23:17:00) [facility] HospitalXbvwdwgcwFUUICWYWMQ9939-52-03 04:17:00Negative *NA*(12/30/2011 23:17:00) [facility] HospitalKiikdoabqVFMVEALVMD2317-33-54 04:17:00Clear (12/30/2011 23:17:00) [facility]zxvdzinNRDFFUYQEQ1906-65-90 04:17:001.019[facility] HospitalQelhmtmubZEMXYNHLVL8429-21-93 06:36:001[facility] HospitalUisflzalhBUEDDVWBMG9269-73-65 06:36:00 6M[facility]axhawNtjqekrfyUUNWYHJYMZ0920-76-55 06:36:003[facility] HospitalJhfejljmaXURCPUTFVK9928-71-77 06:36:00Few /LPF *NA*(10/16/2011 01:36:00) [facility] HospitalLeatpytbiNTDMGBCMZU0118-45-82 06:36:00Moderate *ABN*(10/16/2011 01:36:00) [facility]BzgmtfcdzXVBRQTHMAZ9326-16-01 06:36:00Occasional /LPF *NA*(10/16/2011 01:36:00) [facility] 2011-10-16 06:36:00Negative mg/dL *NA*(10/16/2011 01:36:00) [facility] KPLXOOEVEB0510-12-52 06:36:00Negative *NA*(10/16/2011 01:36:00) [facility] RMCULIVYVN0793-21-72 06:36:00Negative (10/16/2011 01:36:00) [facility] ACIGFBKGNG1618-46-03 06:36:00Negative mg/dL *NA*(10/16/2011 01:36:00) [facility]KlanwjhgkCOQIBCMUMU9648-29-54 06:36:00Negative mg/dL (10/16/2011 01:36:00) [facility] HospitalBlzhmtdiiHFCYKNUINR0173-10-58 06:36:00Negative (10/16/2011 01:36:00) [facility] HospitalSxpzrivvmQVTXCWLMQS3276-48-17 06:36:00Slight *ABN*(10/16/2011 01:36:00) [facility] HospitalBkeuoujukLPWFUVKHWQ8958-75-10 06:36:001.019[facility] HospitalXykhoasapKCFTVMICXU8771-05-48 06:36:006.0MH AuoujnjgaKKRXFRHXD7582-83-18 06:33:0014.7 [facility] 2011-10-16 06:33:000.7 UtbcuqhcxJZUUBSNST3718-81-05 06:33:02460CZ [facility] DTYORYGEO8304-75-22 06:33:0014MH QacakvvaiJMCZULZBE6596-14-51 06:33:0091 PoetgigqaRBQRJEACD9866-71-12 06:33:0023 HjucivzjzIBFCLJKTJ0394-18-07 06:33:00 8.9MH YbobiuhszLGZDXEFNH2435-07-73 06:33:003.7 UzhbiueqpPXAMCYESX3987-15-75 06:33:56897BU RorxqbwfrMFVWQNYTCJ9256-77-40 06:33:0040.3M [facility] 2011-10-16 06:33:004.6MH MwlddjrnnRNQHMQVWPL3762-14-67 06:33:0016.2[facility] KIQBSRAZTC1347-49-49 06:33:0010.2M VysejhtgfAXWPSWWHJM8451-48-62 06:33:00* Test Item Value Reference Range Interpretation Comments MCH (test code = MCH) 30.8 pg 27.0-31.0 N BdisiqwtlUMXQHIBVIY6143-90-24 06:33:0033.4 SsjqgjppjCXXBIXPRHW9201-46-88 06:33:41245LY ZaijhrhkyXRTGITFMVG0482-29-08 06:33:004.37 [facility] 2011-10-16 06:33:0013.4 OzslxbchhXSLYPXFMHS0820-30-72 06:33:0092.2[facility] NWMBIJCSUI3016-42-95 06:33:001.9 MqrmwjkoqNWVGWPSBAZ2738-79-44 06:33:000.1M LnznxzzgmCLAEYJAKBX9526-51-70 06:33:002.2M CbipaosroGNFNMFEAJX2017-58-73 06:33:000.4 TyacrzwabKUZQKVFNFB6688-15-56 06:33:0047.8 [facility] 2011-10-16 06:33:009.0 JrlmvkhviJPDEZRBGTN7230-34-08 06:33:0040.1[facility] PSHJRUMTEV0652-72-68 06:33:002.8 FfinzgwtiRJNTLYKXVL5287-69-59 06:33:000.3M FomuxyaqnEVOTQBVYWH9254-11-23 06:33:000.0 WmulxyrpwIDVSJRZDC1611-30-69 09:45:0070 ObvmnkdfwAYWFYQHAR1276-85-86 09:45:000.9 [facility] 2011-10-10 09:45:0010 JfhxfwstkHQHNXXCAS1227-69-90 09:45:0023 [facility] GESVFUOWL2721-68-85 09:45:008.8 IgnqgdhtbEGOKCPQBK4269-39-23 09:45:54949NL ThjukjahdLEHBFDDBD3034-80-98 09:45:004.0 DnkvsmkpmPIYABLIXD2333-64-36 09:45:00 143 JtfikeqorPMSWKUOLZ8056-94-03 09:45:0016.0 LrphxooudPBWFYZCYVR4014-59-50 09:45:001.3M RhzoeehvrFBDPLFXDBX4890-50-07 09:45:000.7 [facility] 2011-10-10 09:45:000.2M BjehfmgceUTITXYHTZG1127-09-45 09:45:002.1[facility] MTVJPQVKDL2517-56-55 09:45:000.0 QscuvtedlDWEZIMTTOI1861-50-65 09:45:000.1M MtvzylydmCUBTYMSIOG6463-61-93 09:45:003.3M LtesiotqnJBFJHSBYSC1129-98-08 09:45:005.5 VaisyacdaZMZRTZBFDR2244-42-26 09:45:0055.8 [facility] 2011-10-10 09:45:0034.7 UalsbdvgdINMYMAHHDO6905-31-77 09:45:50864DW[facility] PNMZNUTMXP7040-09-93 09:45:0015.7 YxtntrmoiXGTCIUOYMK9410-72-98 09:45:0033.7 DfcmgqbblDKYMRZSMTA8932-96-08 09:45:0010.1M ZemoabaexCTNKWBAIMX3651-67-40 09:45:0035.6M AzcjqpomyCIWWCZSCLE3995-83-22 09:45:003.8 [facility] 2011-10-10 09:45:0091.6M GycgsbespUYTIDOSLYK2010-22-17 09:45:00* Test Item Value Reference Range Interpretation Comments MCH (test code = MCH) 30.9 pg 27.0-31.0 N RzhudzdduLXERLQKRMI2923-40-41 09:45:0012.0 ImlgzdryxDUSODDWIDU0585-97-66 09:45:003.89MH SoutheastBEDSIDE GLUCOSE WTODYXO7725-50-30 02:12:0095 [facility] USBQWZN9792-13-00 15:34:00Negative (10/09/2011 10:34:00) KqouctfloBGWCBKLLZ7933-34-02 15:34:006MH JakydoryxXFYEIOXXW1718-45-09 15:34:00 131 JuuvbatxgFYEDVZLOX1673-62-95 15:34:0015.6M RruqltsyyZPTODPZSH9904-45-07 15:34:0057 WrkjljujxJLDMQTYLL2391-40-04 15:34:0012 [facility] 2011-10-09 15:34:34557TQ QhlmeryiiHLDWMRIZR0254-09-00 15:34:01747QN[facility] KEUZIQY5003-84-70 14:01:00Product available 2(10/09/2011 09:01:00) HddiovqpdCZWNAMUCUA0631-57-04 12:34:008.5 FukojgmcuICFAMSATRF8533-72-17 12:34:0026.1M RavzdcxzkKIRJBLVZC6480-94-03 06:35:0011.4 [facility] 2011-10-09 06:35:52407PY WvmvxlnrjKPANPFDFW2704-32-63 06:35:001.0[facility] GJSUTZSSC0511-71-27 06:35:009[facility] HospitalIwsgbppisLUXQFMGHO1962-35-21 06:35:003.4 EgbkxbcxfNRITZWVYI9445-40-19 06:35:0090 AruwgxizfWBQIMGKVI0283-52-61 06:35:00 8.5 PlvyuxsxrQRXEXYPSX5811-69-15 06:35:0028 PveitunrnFFREYTMLC8455-22-88 06:35:94266FA RccypggyxHDTOBTUDDS0748-28-82 06:35:61488WJ [facility] 2011-10-09 06:35:0015.1M CykfvalpgPERJGINEVA2162-35-51 06:35:009.5[facility] FNVVTDVQKQ3632-42-66 06:35:0033.3M QnautekjzDWMFDUBUUC0329-58-63 06:35:004.1M JfhahkjvmYVBTNWXKBH3608-33-76 06:35:003.11MH GxbvfalqsWKWKXTWUOL6429-04-36 06:35:0028.1[facility] InstituteXnrxbyfvcSVXYZPSJHG0892-33-06 06:35:0090.4 [facility] 2011-10-09 06:35:009.4[facility] HospitalXgkiwojclXBVHVHNEPR6615-57-34 06:35:00* Test Item Value Reference Range Interpretation Comments MCH (test code = MCH) 30.1 pg 27.0-31.0 N LrykhyteoWSCVBYZHFC7317-66-23 06:35:0045.7[facility] HospitalYwloebeinPMXKOGPQPT4731-41-96 06:35:0041.6[facility] InstituteCceodmvnlSBGNTZGYMD7591-47-41 06:35:001.7 [facility] 2011-10-09 06:35:000.5[facility] HospitalUeysspqocSXFMCLJZYS4780-03-99 06:35:002.1[facility] 06:35:0010.1[facility] InstituteCgxdkzvmtGLWJRRJQEH8467-68-11 06:35:001.9[facility] HospitalTcmpfebipZKUMAUELMI5269-20-34 06:35:000.1[facility] InstituteDnuloxrtyNFTQMNORHI9674-61-59 06:35:000.0[facility] HospitalWyuubftchDBEHZBGODW3882-41-24 06:35:000.4[facility]
--- NOTE | 2019-10-09 13:25 | NUR ---
RECD PT FROM ER VIA W/C AAOX3,C/O NAUSEA MEDICATED,IV TO RT AC 20 GAUGE,,HOB ELEVaTED, CALL JURADO IN REACH.IVF STARTED TO RT ODALIS STORM.
[2019-10-09] MEDS: SODIUM CHLORIDE 0.9% 1000ML 1,000 ML IV SCH ×2 (13:54→23:16)
[2019-10-09 14:07] VITALS: BP 122/81
[2019-10-09] MEDS: ONDANSETRON HCL INJ 2MG/ML 2ML 2 MG/ML VIAL IV PRN ×2 (14:16→19:14)
[2019-10-09] MEDS ORDERED: MERTAZAPINE PO (14:21)
[2019-10-09 15:37] VITALS: BP 128/78
--- NOTE | 2019-10-09 17:55 | NUR ---
PT SITTING UP ON SIDE OF BED ,NO FUTHER C/O NAUSEA ,TOLERATING CLEAR LIQUISD WELL,NO S/S DISCOMFORT
[2019-10-09] MEDS: ACETAMINOPHEN/CODEINE 300MG - 30MG TAB PO SCH (17:56)
[2019-10-09] MEDS: METRONIDAZOLE 500MG/NS 100ML 100 ML IV SCH (17:56)
[2019-10-09] MEDS ORDERED: NON-FORMULARY MEDICATION (Acetaminophen With Codeine (Tylenol With Codeine #4 Tablet) 1 TA PO SCH (18:00)
--- NOTE | 2019-10-09 19:00 | NUR ---
RECEIVED PATIENT IN BEDSIDE SHIFT REPORT. PATIENT RESTING IN BED AT THIS TIME. MODERATE PAIN REPORTED, SCHEDULED PAIN MEDS TO BE GIVEN. NO S&S OF DISTRESS NOTED. R AC 20G IV RUNNING NS @ 125ML/HR. BED LOCKED IN LOWEST POSITION, SIDE RAILS UPX2, CALL LIGHT IN REACH.
--- NOTE | 2019-10-09 19:15 | NUR ---
PT C/O NAUSEA MEDICATED.
[2019-10-09 19:51] LABS: CREATINE KINASE 3670 IU/L (29-168)
[2019-10-09 20:00] VITALS: BP 131/75
[2019-10-09 20:38] VITALS: BP 131/75
[2019-10-09] MEDS ORDERED: GABAPENTIN 300 MG CAP PO SCH (21:00)
[2019-10-09] MEDS ORDERED: NON-FORMULARY MEDICATION (Cyclobenzaprine Hcl (Flexeril) 10 MG) PO SCH (21:00)
[2019-10-09] MEDS ORDERED: DICYCLOMINE HCL 10 MG CAP PO SCH (21:00)
[2019-10-09] MEDS ORDERED: MIRTAZAPINE 15 MG PO SCH (21:00)
[2019-10-09] MEDS: GABAPENTIN 400 MG CAP PO SCH (21:09)
[2019-10-09] MEDS: ZOLPIDEM TARTRATE 10 MG TAB PO SCH (21:09)
[2019-10-09] MEDS: DIAZEPAM 5 MG TAB PO SCH (21:09)
[2019-10-09] MEDS: MIRTAZAPINE 15 MG TAB PO SCH (21:09)
[2019-10-09] MEDS: TIZANIDINE HCL 4 MG TAB PO SCH (21:09)
[2019-10-09] MEDS: CYCLOBENZAPRINE HCL 10 MG TAB PO SCH (21:09)
[2019-10-09] MEDS: DICYCLOMINE HCL 20 MG TAB PO SCH (21:09)
[2019-10-09] MEDS: TEMAZEPAM 15 MG CAP PO SCH (21:09)
[2019-10-09] MEDS: DIPHENOXYLATE/ATROPINE TAB PO PRN (21:10)
[2019-10-09] MEDS ORDERED: NON-FORMULARY MEDICATION (Diazepam 10 MG) PO SCH (22:00)
[2019-10-09] MEDS: HEPARIN SOD (PORCINE) 5,000 UNIT/ML VIAL SC SCH (22:45)
--- NOTE | 2019-10-09 23:22 | Consultation ---
DATE OF CONSULTATION: REASON FOR CONSULTATION: Abdominal pain, diarrhea, fever, chills, gastroenteritis. HISTORY OF PRESENT ILLNESS: This is a patient who is a 43-year-old female, history of obesity, history of cervical cancer, history of cholecystectomy, hysterectomy, hernia repair, Dilaudid pain pump, splenectomy, abdominal hernia with surgery before. The patient comes in with 6 days of fever, chills, abdominal pain which was diffuse, severe diarrhea, nausea, vomiting, not feeling well. The patient came to the emergency room. In the emergency room, she had a CAT scan of abdomen and pelvis, which showed no acute finding. The patient had blood cultures, urine cultures. Her white count was 8.23, hemoglobin 13, hematocrit 41. Her COVID-19 is still pending. Her sodium 133, potassium 3.4, with a creatinine 0.88. Her AST 29, ALT of 33, total protein 7.4. REVIEW OF SYSTEMS: She is complaining of abdominal pain, not feeling well, fever and chills. Otherwise as mentioned above. When she first came, her temperature was 101.2 with a heart rate of 147 and respirations 26. MEDICATIONS: She is currently on Zofran. She is currently on Celexa, Bentyl, Neurontin, metronidazole. PHYSICAL EXAMINATION: GENERAL: She is currently alert, oriented, does not seem to be in acute distress. VITAL SIGNS: Stable. Currently afebrile. HEENT: She is not icteric. NECK: Supple. CHEST: Clear. HEART: S1, S2. No S3, S4. No murmur. ABDOMEN: Soft. IMPRESSION: Sepsis on admission, gastroenteritis. Agree with Levaquin. Agree with Flagyl. Agree with IV fluid. Clinically, seems to be better. Await blood culture and sensitivity. Recheck CBC. Recheck chem panel. Continue supportive care. Agree with above choice of antibiotic. Discussed with the patient. MD LEONEL Bentley/DOROTHY /[id number]
[2019-10-10] VITALS (8 sets, daily range): BP systolic 104–143; BP diastolic 71–91
[2019-10-10 01:24] LABS: CREATINE KINASE 3239 IU/L (29-168)
[2019-10-10] MEDS: METRONIDAZOLE 500MG/NS 100ML 100 ML IV SCH ×3 (02:06→19:15)
--- NOTE | 2019-10-10 04:03 | History and Physical ---
PRIMARY CARE PHYSICIAN: Miko Bahena DO CHIEF COMPLAINT: Nausea, vomiting, abdominal pain, headache, and diarrhea. HISTORY OF PRESENT ILLNESS: This is a 43-year-old female with past medical history of chronic back pain and depression, presented to the ER with complaints of headache, nausea, vomiting, abdominal pain, diarrhea, fever, and chills for the past week or so. She denies any ill contact, eating anything uncleaned or unwashed. She denies any melena, dysuria, or recent travel. She reports has not been able to keep anything down, with watery bile like bowel movements. She denies any shortness of breath, cough, dizziness, chest pain, or change in LOC. She reports diffuse abdominal pain that is nonradiating. She reports that the pain is not relieved by anything she took at home. In the ER, she was noted to have fever of 101.2. Pulse was 147. Chest x-ray was unremarkable and CT abdomen also showed no acute findings. We will admit the patient for further evaluation. PAST MEDICAL HISTORY: 1. Chronic back pain. 2. Depression. PAST SURGICAL HISTORY: Hysterectomy, cholecystectomy, and spinal fusion. FAMILY MEDICAL HISTORY: Mother has hypertension. Father has heart disease and high cholesterol. SOCIAL HISTORY: She denies any tobacco, alcohol, or illicit drug use. ALLERGIES: SHE IS ALLERGIC TO AMOXICILLIN AND CLAVULANIC ACID AND IODINE. REVIEW OF SYSTEMS: GENERAL: Fatigue, fever. HEENT: No head trauma. LUNGS: No cough or shortness of breath. CARDIOVASCULAR: No chest pain or palpitations. GI: With nausea, vomiting, abdominal pain, and diarrhea. NEURO: No dizziness. MUSCULOSKELETAL: No edema. SKIN: No rash. PHYSICAL EXAMINATION: VITAL SIGNS: Temperature 97.3, pulse is 94, respirations 18, blood pressure 122/81, pulse ox is 96% on room air. GENERAL: No acute distress. HEENT: Normocephalic, atraumatic. NECK: Supple. LUNGS: Clear to auscultation. CARDIOVASCULAR: Regular rate and rhythm. GI: Soft, but diffuse pain with palpation. NEUROLOGIC: Alert, awake, and oriented x3. MUSCULOSKELETAL: Moves all extremities. SKIN: Dry and intact. PSYCH: Calm. LABORATORY DATA: WBC 8.23, hemoglobin 13.4, hematocrit 41.3, platelets 324. Sodium 133, potassium 3.4, creatinine 0.88. Lactic acid 1.1, AST 29, ALT 33. Creatine kinase 3980. CK-MB 20 and troponin less than 0.05. Globulin 4.0. Lipase 12. Procalcitonin pending. UA shows negative for nitrites. Leukocytes have 6-10 K of wbc's and moderate bacteria. Coronavirus PCR pending. C. diff pending. Cultures, blood culture, urine culture, and stool cultures pending. IMAGING: Chest x-ray, no focal pneumonia or pulmonary edema. CT brain shows no acute intracranial abnormalities. CT of abdomen and pelvis shows no acute findings in the abdomen or pelvis. IMPRESSION AND PLAN: 1. Systemic inflammatory response syndrome with tachycardia and fever. Cultures have been sent, started on Flagyl for possible gastroenteritis. 2. Gastroenteritis. CT of abdomen was unremarkable. We will continue with IV fluid hydration and Flagyl for diarrhea. We will check stool sample for Clostridium difficile and stool culture. 3. Hypokalemia. Replace. 4. Rhabdomyolysis. With CK 3980. We will continue to hydrate aggressively and repeat CK level in a.m. Creatinine is within normal limits. 5. Hyponatremia. Continue with IV fluids and repeat labs in the a.m. Likely due to diarrhea. 6. Chronic back pain. Pain management as needed with ketorolac, Dilaudid, and Tylenol No.3 as needed. 7. Depression. We will continue with home medication, Valium. 8. Deep venous thrombosis prophylaxis. We will give heparin subcu. PLAN: To continue IV fluid hydration and Flagyl. ID has been consulted. Dictated by JOSHUA Douglas Karina Acuna MD MY/MODL /[id number] Pt seen and examined on 10/09/19. Agree with the findings and plan as documented by JOSHUA Castano. MTDD
[2019-10-10 05:49] LABS: BASOPHILS % 0.3 % (0.0-1.0); HEMATOCRIT 33.2 % (34.2-44.1); HEMOGLOBIN 10.7 g/dL (12.0-16.0); LYMPHOCYTES # (AUTO) 1.1 (1.0-3.2); LYMPHOCYTES % 14.9 % (18.0-39.1); MEAN CORPUSCULAR HEMOGLOBIN 29.9 pg (28-32); MEAN CORPUSCULAR HGB CONC 32.2 g/dL (31-35); MEAN CORPUSCULAR VOLUME 92.7 fL (81-99); MONOCYTES # (AUTO) 0.6 (0.2-0.8); MONOCYTES % 8.4 % (4.4-11.3); NEUTROPHILS # (AUTO) 5.2 (2.1-6.9); NEUTROPHILS % 72.3 % (38.7-80.0); PLATELET COUNT 283 x10e3/uL (140-360); RED BLOOD COUNT 3.58 x10e6/uL (3.6-5.1); RED CELL DISTRIBUTION WIDTH 13.9 % (11.7-14.4)
[2019-10-10] MEDS: DIAZEPAM 5 MG TAB PO SCH ×3 (06:00→21:50)
[2019-10-10] MEDS: ACETAMINOPHEN/CODEINE 300MG - 30MG TAB PO SCH ×4 (06:00→19:15)
[2019-10-10 06:15] LABS: ALANINE AMINOTRANSFERASE 26 IU/L (0-55); ALBUMIN 2.7 g/dL (3.5-5.0); ALBUMIN/GLOBULIN RATIO 0.8 (0.8-2.0); ALKALINE PHOSPHATASE 107 IU/L (40-150); BLOOD UREA NITROGEN 10 mg/dL (7-26); BUN/CREATININE RATIO 16 (6-25); CALCIUM 8.6 mg/dL (8.4-10.2); CARBON DIOXIDE 21 mmol/L (22-29); CHLORIDE 107 mmol/L (98-107); CREATINE KINASE 2461 IU/L (29-168); CREATININE, SERUM 0.64 mg/dL (0.57-1.11); EST GLOMERULAR FILTRATION RATE > 60 ML/MIN (60-); GLUCOSE 125 mg/dL (74-118); SODIUM 138 mmol/L (136-145)
[2019-10-10 06:31] LABS: CREATINE KINASE 2433 IU/L (29-168)
--- NOTE | 2019-10-10 07:30 | NUR ---
PT IN BED SLEEPING,NO DISTRESS NTOED ,DENIES PAIN
[2019-10-10] MEDS: CITALOPRAM HYDROBROMIDE 20 MG TAB PO SCH (09:00)
[2019-10-10] MEDS: GABAPENTIN 400 MG CAP PO SCH ×3 (09:00→21:20)
[2019-10-10] MEDS: CYCLOBENZAPRINE HCL 10 MG TAB PO SCH ×3 (09:00→21:20)
[2019-10-10] MEDS: TIZANIDINE HCL 4 MG TAB PO SCH ×3 (09:00→21:21)
[2019-10-10] MEDS: DICYCLOMINE HCL 20 MG TAB PO SCH ×3 (09:00→21:20)
[2019-10-10] MEDS: HEPARIN SOD (PORCINE) 5,000 UNIT/ML VIAL SC SCH ×2 (09:00→21:21)
[2019-10-10] MEDS ORDERED: NON-FORMULARY MEDICATION (Citalopram Hydrobromide (Celexa) 40 MG) PO SCH (09:00)
[2019-10-10] MEDS: DIPHENOXYLATE/ATROPINE TAB PO PRN ×3 (09:00→21:20)
[2019-10-10 09:19] LABS: BAND NEUTROPHILS % (MANUAL) 8 %; LYMPHOCYTES % (MANUAL) 12 % (19-48); MONOCYTES % (MANUAL) 7 % (3.4-9.0); MYELOCYTES % (MANUAL) 3 % (0-0); NEUTROPHILS % (MANUAL) 70 % (40-74); PLATELET ESTIMATE ADEQUATE; PLATELET MORPHOLOGY COMMENT NORMAL; RBC MORPHOLOGY COMMENT NORMAL
[2019-10-10] MEDS: SODIUM CHLORIDE 0.9% 1000ML 1,000 ML IV SCH ×2 (10:33→12:15)
[2019-10-10] MEDS: LEVOFLOXACIN 500 MG TAB PO SCH (10:36)
--- NOTE | 2019-10-10 10:38 | NUR ---
PT IN BED HAD LIQUID WATER STOOL ,DARK GREEN,STATES FELLS VERY TIRED.
--- NOTE | 2019-10-10 11:19 | Progress Note ---
DATE: SUBJECTIVE: The patient is seen and evaluated. Available labs and notes reviewed. Discussed with the nurse. Discussed with the patient. The patient states that she had a bloody stool last night x1 and lost about 1.5 ounce of blood. Per my discussion with the staff, the patient has about 5 to 6 watery stool throughout the day. There is no odor to it, kind of a greenish bile color. Stool sent for C. difficile and culture, but there was no bloody stool reported by staff. Tolerates liquid diet. No fever. No chills. No nausea. No vomiting. PHYSICAL EXAMINATION: VITAL SIGNS: Temperature is 97.9, pulse 84, respirations 16, and blood pressure 111/75. GENERAL: Alert and oriented, no acute distress. CV: S1 and S2. CHEST: Equal expansion. Clear to auscultation. No acute distress. ABDOMEN: Soft, obese, and nontender. Bowel sounds positive. HEENT: Moist. No pallor. No JVD. EXTREMITIES: Moves all. No significant edema. No cyanosis. MEDICATIONS: Medication list reviewed and as far as Infectious Disease point of view, the patient is on Flagyl. LABORATORY STUDIES: White count 7.16, hemoglobin 10.7, and platelet 283. Sodium 138, potassium 4, and creatinine 0.64. Creatine kinase 2461, improved from 3670 on . CK-MB of 14.8, improved from 20.3 yesterday. Troponin I is less than 0.001. Total protein is 6 and albumin is 2.7. Procalcitonin is pending. Serologies; C. difficile and coronavirus PCR pending. MICROBIOLOGY: Blood cultures negative. Urine and stool culture pending. RADIOLOGY STUDIES: CT of abdomen and pelvis showed no acute finding. She also had a CT of the brain, which showed no acute intracranial abnormalities. Chest x-ray showed no focal pneumonia or pulmonary edema. Pathology; no pathology available. ASSESSMENT AND PLAN: 1. Sepsis, on admission-fever resolved, sepsis resolved. 2. Gastroenteritis. 3. Medication list reviewed. She is only on Flagyl, clinically feels better. Continues to have diarrhea, which is watery, greenish/bile color, but no blood reported by staff, however, the patient states that there is some blood in the stool. Tolerates oral intake. Continue to monitor the patient clinically. Follow up with the cultures and labs. Discussed with Dr. Moore in details. Please refer to chart for more information. Dictated by Devante Yadav) KIMBERLYN Zimmerman Corie Moore MD /IESHAL /[id number]
--- NOTE | 2019-10-10 13:45 | NUR ---
DR POWELL HERE NO NEW ORDERS
[2019-10-10] MEDS: ONDANSETRON HCL INJ 2MG/ML 2ML 2 MG/ML VIAL IV PRN (14:51)
--- NOTE | 2019-10-10 17:39 | NUR ---
PT SLEEPING ,NO DISTRESS NTOED.
--- NOTE | 2019-10-10 19:00 | NUR ---
RECEIVED PATIENT IN BEDSIDE SHIFT REPORT. PATIENT RESTING IN BED AT THIS TIME. ABDOMINAL PAIN REPORTED, SCHEDULED PAIN MEDS TO BE GIVEN. PATIENT REPORTS CONTINUED LIQUID BMS. NO S&S OF DISTRESS NOTED. BED LOCKED IN LOWEST POSITION, SIDE RAILS UPX2, CALL LIGHT IN REACH.
[2019-10-10] MEDS: ZOLPIDEM TARTRATE 10 MG TAB PO SCH (21:20)
[2019-10-10] MEDS: TEMAZEPAM 15 MG CAP PO SCH (21:21)
[2019-10-10] MEDS: MIRTAZAPINE 15 MG TAB PO SCH (21:21)
--- NOTE | 2019-10-10 22:52 | Progress Note ---
DATE: 10/10/2019 CONSULTING PHYSICIANS: Dr. Moore with Infectious Disease. CHIEF COMPLAINT: Nausea, vomiting, abdominal pain, headache, and diarrhea. SUBJECTIVE: The patient reports diarrhea has not improved, she, however, reports is tolerating clears. We will advance diet to full liquid. She reports having watery stool with change of blood, but staff reports she has a green bile stool. She denies any shortness of breath, chest pain, fever, or chills. PHYSICAL EXAMINATION: VITAL SIGNS: Temperature 97.9, pulse is 73, respirations 18, blood pressure 113/73, pulse ox is 100% on room air. GENERAL: No acute distress. HEENT: Normocephalic, atraumatic. CARDIOVASCULAR: Regular rate and rhythm. LUNGS: Clear to auscultation. ABDOMEN: Soft, but tender to palpation. NEUROLOGIC: Alert, awake, and oriented x3. MUSCULOSKELETAL: Moves all extremities. No edema noted. SKIN: Dry and intact. LABORATORY DATA: WBC 7.16, hemoglobin 10.7, hematocrit 33.2, platelet is 283. Sodium 138, potassium 4.0, CO2 21, BUN is 10, creatinine 0.64, estimated GFR greater than 60. AST 25, ALT 26, creatine kinase 2461, albumin 2.7, procalcitonin 0.57. Stool for C. diff was negative. Stool culture pending. Urine and blood cultures negative. IMPRESSION: 1. Systemic inflammatory response syndrome on admission with tachycardia and fever. Cultures are negative so far. Continue on Flagyl and Levaquin for possible gastroenteritis. 2. Abdominal pain due to gastroenteritis. CT abdomen was unremarkable. We will advance clears to full liquid diet. Stool for Clostridium difficile was negative. Culture pending. Continue with IV fluid hydration and IV antibiotics, Flagyl, and Levaquin. 3. Hypokalemia. Replace. 4. Rhabdomyolysis. CK is improving at 2400. We will continue with IV fluid hydration and repeat CK levels in the morning. Creatinine within normal limits. 5. Chronic back pain. Pain management as needed with Tylenol No. 3 as needed. 6. Depression. We will continue Celexa and Valium. 7. Hyponatremia. Resolved with IV fluids. 8. GI and DVT prophylaxis. Heparin subcu. PLAN: To continue IV fluid hydration, supportive therapy, advanced diet to full liquids, and repeat labs in the a.m. Dictated by Mary Castano, JOSHUA MD DEANN Patel/MODL /[id number] Pt seen and examined on 10/10/19. Agree with findings and plan as documented by JOSHUA Castano. MAURICIOD
[2019-10-11] VITALS (9 sets, daily range): BP systolic 87–127; BP diastolic 53–82
[2019-10-11] MEDS: SODIUM CHLORIDE 0.9% 1000ML 1,000 ML IV SCH ×2 (01:48→11:41)
[2019-10-11] MEDS: METRONIDAZOLE 500MG/NS 100ML 100 ML IV SCH ×3 (01:48→18:00)
[2019-10-11] MEDS: DIPHENOXYLATE/ATROPINE TAB PO PRN ×2 (05:00→15:24)
[2019-10-11] MEDS: ACETAMINOPHEN/CODEINE 300MG - 30MG TAB PO SCH ×4 (06:24→18:00)
[2019-10-11] MEDS: DIAZEPAM 5 MG TAB PO SCH ×3 (06:24→22:23)
[2019-10-11] MEDS: ONDANSETRON HCL INJ 2MG/ML 2ML 2 MG/ML VIAL IV PRN ×3 (06:24→19:39)
--- NOTE | 2019-10-11 07:35 | NUR ---
PATIENT IN BED RESTING WITH EYES CLOSED, NO DISTRESS NOTED. BED IN LOWER POSITION, CALL LIGHT AT REACH.
[2019-10-11 08:02] LABS: BASOPHILS % 0.3 % (0.0-1.0); EOSINOPHILS # (AUTO) 0.1 (0.0-0.4); EOSINOPHILS % 1.7 % (0.0-6.0); HEMATOCRIT 33.3 % (34.2-44.1); HEMOGLOBIN 10.2 g/dL (12.0-16.0); LYMPHOCYTES # (AUTO) 2.6 (1.0-3.2); LYMPHOCYTES % 39.9 % (18.0-39.1); MEAN CORPUSCULAR HEMOGLOBIN 28.8 pg (28-32); MEAN CORPUSCULAR HGB CONC 30.6 g/dL (31-35); MEAN CORPUSCULAR VOLUME 94.1 fL (81-99); MONOCYTES # (AUTO) 0.5 (0.2-0.8); MONOCYTES % 8.1 % (4.4-11.3); NEUTROPHILS # (AUTO) 2.8 (2.1-6.9); NEUTROPHILS % 42.3 % (38.7-80.0); PLATELET COUNT 295 x10e3/uL (140-360); RED BLOOD COUNT 3.54 x10e6/uL (3.6-5.1); RED CELL DISTRIBUTION WIDTH 14.5 % (11.7-14.4)
[2019-10-11] MEDS: DICYCLOMINE HCL 20 MG TAB PO SCH ×3 (09:00→22:21)
[2019-10-11] MEDS: GABAPENTIN 400 MG CAP PO SCH ×3 (09:00→22:22)
[2019-10-11] MEDS: CYCLOBENZAPRINE HCL 10 MG TAB PO SCH ×3 (09:00→22:22)
[2019-10-11] MEDS: TIZANIDINE HCL 4 MG TAB PO SCH ×3 (09:00→22:22)
[2019-10-11] MEDS: CITALOPRAM HYDROBROMIDE 20 MG TAB PO SCH (09:00)
[2019-10-11 09:45] LABS: LYMPHOCYTES % (MANUAL) 35 % (19-48); MONOCYTES % (MANUAL) 7 % (3.4-9.0); MYELOCYTES % (MANUAL) 5 % (0-0); NEUTROPHILS % (MANUAL) 53 % (40-74); PLATELET ESTIMATE ADEQUATE; PLATELET MORPHOLOGY COMMENT NORMAL; RBC MORPHOLOGY COMMENT NORMAL
[2019-10-11] MEDS: LEVOFLOXACIN 500 MG TAB PO SCH (10:03)
[2019-10-11] MEDS: HEPARIN SOD (PORCINE) 5,000 UNIT/ML VIAL SC SCH ×2 (10:44→22:23)
--- NOTE | 2019-10-11 10:54 | Progress Note ---
DATE: SUBJECTIVE: The patient is seen and evaluated. Available labs and notes reviewed. Discussed with Dr. Moore in details. REVIEW OF SYSTEMS: Still complaining of diarrhea, but patient thinks if we upgrade diet to regular, her diarrhea will resolve. She says still has about 8-10 bowel movements on a daily basis. No nausea, no vomiting, no abdominal pain, no cramping. She has a little bit of discomfort in left upper quadrant of abdomen, but not tender she states. OBJECTIVE: VITAL SIGNS: Temperature 97.4, pulse is 79, respirations 18, and blood pressure 115/78. GENERAL: Alert and oriented, no acute distress. CV: S1 and S2. CHEST: Equal expansion. Clear to auscultation. No acute distress. ABDOMEN: Soft, nontender. Slight discomfort in left upper quadrant. Bowel sounds positive. HEENT: Moist. No pallor. No JVD. EXTREMITIES: Moves all. No acute distress. MEDICATION LIST: Reviewed. As far as Infectious Disease point of view, patient is on Levaquin and Flagyl. LABORATORY STUDIES: White count of 6.52, hemoglobin 10.2, platelet 295. Sodium 138, potassium 4, creatinine 0.64. Creatine kinase improving to 805, CK-MB improved to 14.8, lipase 12 on 10/09/2019, procalcitonin of 0.57. MICROBIOLOGY: Blood culture 10/09/2019. Urine culture 10/09/2019 negative so far. Stool culture 10/09/2019 still pending, but not received yet. PATHOLOGY: No pathology studies available. RADIOLOGY: There is no new radiology studies available. ASSESSMENT AND PLAN: 1. Sepsis on admission-resolved. 2. Fever, resolved. 3. Gastroenteritis, still with diarrhea. Antibiotics were Flagyl and Levaquin, yesterday remains with good appetite and wants her diet to advance. Continue with hydration. Continue to monitor patient clinically. Follow with the labs. Discussed with Dr. Moore in details. Please refer to chart for more information. Dictated by Devante Zimmerman PA-C (Al) Corie Moore MD /MODL /[id number]
--- NOTE | 2019-10-11 11:46 | NUR ---
PATIENT ASSISTED WITH DIAPER CHANGE, REPOSITIONED IN BED . CALL LIGHT AT REACH.
--- NOTE | 2019-10-11 15:14 | NUR ---
PATIENT OUT OF BED TO CHAIR TALKING ON THE PHONE, CALL LIGHT AT REACH.
[2019-10-11] MEDS: LACTATED RINGER'S 1,000 ML INJ SCH (16:50)
--- NOTE | 2019-10-11 19:00 | NUR ---
RECEIVED PATIENT IN BEDSIDE SHIFT REPORT. PATIENT RESTING IN BED. HEADACHE AND NAUSEA REPORTED. WILL MEDICATE ABLE. IV TO R AC 20G RUNNING LR @ 100ML/HR. NO S&S OF DISTRESS NOTED. BED LOCKED IN LOWEST POSITION, SIDE RAILS UPX2, CALL LIGHT IN REACH.
--- NOTE | 2019-10-11 20:56 | Progress Note ---
DATE: 10/11/2019 CONSULTING PHYSICIAN: Dr. Moore with Infectious Disease. CHIEF COMPLAINT: Nausea, vomiting, abdominal pain with diarrhea. SUBJECTIVE: She is seen in the room with no acute distress, she reports diarrhea is not improved. She reports would like to advance her diet to regular diet. No blood noted in the stools since yesterday. She denies any shortness of breath, chest pain, nausea, vomiting, fever, or chills. PHYSICAL EXAMINATION: VITAL SIGNS: Temperature 98.3, pulse is 83, respirations 20, blood pressure 119/73, pulse ox is 99% on room air. GENERAL: Fatigue. HEENT: Normocephalic, atraumatic. CARDIOVASCULAR: Regular rate and rhythm. LUNGS: Clear to auscultation. ABDOMEN: Soft and nontender. NEUROLOGIC: Alert, awake, and oriented x3. MUSCULOSKELETAL: Moves all extremities. No edema. SKIN: Dry and intact. PSYCH: Calm. LABORATORY DATA: WBC 6.52, hemoglobin 10.2, hematocrit 33.3, and platelets 295. CK 805. IMPRESSION AND PLAN: 1. Systemic inflammatory response syndrome on admission with tachycardia and fever. Now resolved. Cultures are negative. Continue on Flagyl and Levaquin. 2. Abdominal pain due to gastroenteritis. CT abdomen was unremarkable. Still with diarrhea. Clostridium difficile was negative. We will continue with IV fluid hydration and IV antibiotics with Flagyl and Levaquin. We will advance diet to GI soft. 3. Hypokalemia. Replaced. 4. Rhabdomyolysis. CK is trending down, now 805. Continue IV fluids. 5. Chronic back pain. Pain management as needed with Tylenol No. 3. 6. Depression. Continue Celexa and Valium. 7. Hyponatremia. Resolved with IV fluids. 8. Obesity. 9. Gastrointestinal and deep vein thrombosis prophylaxis. Heparin subcu. Dictated by JOSHUA Douglas Karina Acuna MD MY/MODL /[id number] Pt seen and examined, since no significant improvement will consult GI. Agree with the findings and plan as documented by JOSHUA Castano. MTDD
[2019-10-11] MEDS: ZOLPIDEM TARTRATE 10 MG TAB PO SCH (22:21)
[2019-10-11] MEDS: TEMAZEPAM 15 MG CAP PO SCH (22:22)
[2019-10-11] MEDS: MIRTAZAPINE 15 MG TAB PO SCH (22:22)
[2019-10-12] VITALS (7 sets, daily range): BP systolic 103–132; BP diastolic 69–85
--- NOTE | 2019-10-12 00:30 | NUR ---
MD Violetta HOLLANDDAD IN TO SEE PATIENT. NEW ORDERS RECEIVED AND IMPLEMENTED.
[2019-10-12] MEDS ORDERED: PANTOPRAZOLE 40 MG 10ML VIAL IV STA (00:35)
[2019-10-12] MEDS: METRONIDAZOLE 500MG/NS 100ML 100 ML IV SCH ×3 (01:28→16:54)
[2019-10-12] MEDS: ACETAMINOPHEN/CODEINE 300MG - 30MG TAB PO SCH ×4 (01:28→16:54)
[2019-10-12] MEDS ORDERED: DICYCLOMINE HCL 20 MG TAB PO STA (02:14)
[2019-10-12] MEDS: LACTATED RINGER'S 1,000 ML INJ SCH ×3 (06:24→21:30)
[2019-10-12] MEDS: DIAZEPAM 5 MG TAB PO SCH ×3 (06:24→22:05)
[2019-10-12] MEDS ORDERED: KETOROLAC TROMETHAMINE 30 MG/ML VIAL ONE (09:05)
[2019-10-12] MEDS: LACTOBACILLUS ACIDOPHILUS CAPSULE PO SCH ×2 (09:15→16:53)
[2019-10-12] MEDS: CYCLOBENZAPRINE HCL 10 MG TAB PO SCH ×3 (09:15→22:05)
[2019-10-12] MEDS: PANTOPRAZOLE 40 MG 10ML VIAL IV SCH ×2 (09:15→16:53)
[2019-10-12] MEDS: GABAPENTIN 400 MG CAP PO SCH ×3 (09:15→22:05)
[2019-10-12] MEDS: CITALOPRAM HYDROBROMIDE 20 MG TAB PO SCH (09:15)
[2019-10-12] MEDS: DICYCLOMINE HCL 20 MG TAB PO SCH ×4 (09:15→22:04)
[2019-10-12] MEDS: TIZANIDINE HCL 4 MG TAB PO SCH ×3 (09:16→22:05)
[2019-10-12] MEDS: HEPARIN SOD (PORCINE) 5,000 UNIT/ML VIAL SC SCH (09:18)
[2019-10-12] MEDS: LEVOFLOXACIN 500 MG TAB PO SCH (10:00)
[2019-10-12] MEDS ORDERED: LOPERAMIDE HCL 2 MG CAP PO ONE (14:00)
[2019-10-12] MEDS: ENOXAPARIN SOD INJ 40 MG/0.4 ML SYR SC SCH (16:53)
[2019-10-12] MEDS ORDERED: CHOLESTYRAMINE 4 GM PACKET PO PRN (20:00)
[2019-10-12] MEDS: ZOLPIDEM TARTRATE 10 MG TAB PO SCH (22:04)
[2019-10-12] MEDS: LOPERAMIDE HCL 2 MG CAP PO PRN (22:04)
[2019-10-12] MEDS: MIRTAZAPINE 15 MG TAB PO SCH (22:05)
[2019-10-12] MEDS: TEMAZEPAM 15 MG CAP PO SCH (22:05)
--- NOTE | 2019-10-12 22:19 | NUR ---
ASSUMED CARE OF THIS PATIENT THIS AM. SHE HAS A PIV OF LR INFUSING AT A RATE OF 100CC/HR. SHE COMPLAINS OF A MIGRAINE FOR THE PAST 9 DAYS, SHE GOT SOME RELIEF THIS SHIFT WITH A COMBINATION OF TORADOL AND TYLENOL #3. SHE HAS COMPLAINED OF DIARRHEA, BUT HAS HAD LESS DIARRHEA THAN YESTERDAY. SHE IS COMPLIANT WITH MEDS AND IS ABLE TO WALK TO THE BEDSIDE COMMODE. SHE IS ON IV FLAGYL AND WAS SEEN BY DR. Ju SUBRAMANIAN TODAY. SHE HAD PHENERGAN ADDED TO HER PROFILE ALONG WITH ZOFRAN FOR THE NAUSEA. SHE IS EATING WELL, NO VOMITING, ONLY NAUSEA/DIARRHEA. HE DIET WAS CHANGED TODAY TO INCLUDE NO LACTOSE AND LOW FAT. THE PATIENT IS IN GOOD SPIRITS SINCE HER MIGRAINE PAIN HAS LESSENED.
[2019-10-13] VITALS (9 sets, daily range): BP systolic 110–139; BP diastolic 61–86
[2019-10-13] MEDS: METRONIDAZOLE 500MG/NS 100ML 100 ML IV SCH ×2 (02:14→09:45)
[2019-10-13] MEDS: PROMETHAZINE HCL 25 MG TAB PO SCH ×5 (02:30→23:06)
[2019-10-13] MEDS: ACETAMINOPHEN/CODEINE 300MG - 30MG TAB PO SCH ×5 (02:30→23:07)
[2019-10-13] MEDS: DIAZEPAM 5 MG TAB PO SCH ×3 (06:14→20:32)
[2019-10-13 07:00] LABS: BASOPHILS # (AUTO) 0.1 (0.0-0.1); BASOPHILS % 1.1 % (0.0-1.0); EOSINOPHILS # (AUTO) 0.3 (0.0-0.4); EOSINOPHILS % 4.6 % (0.0-6.0); HEMATOCRIT 30.5 % (34.2-44.1); HEMOGLOBIN 9.5 g/dL (12.0-16.0); LYMPHOCYTES % 53.7 % (18.0-39.1); MEAN CORPUSCULAR HEMOGLOBIN 29.1 pg (28-32); MEAN CORPUSCULAR HGB CONC 31.1 g/dL (31-35); MEAN CORPUSCULAR VOLUME 93.3 fL (81-99); MONOCYTES # (AUTO) 0.5 (0.2-0.8); NEUTROPHILS # (AUTO) 1.5 (2.1-6.9); NEUTROPHILS % 25.7 % (38.7-80.0); PLATELET COUNT 334 x10e3/uL (140-360); RED BLOOD COUNT 3.27 x10e6/uL (3.6-5.1); RED CELL DISTRIBUTION WIDTH 15.7 % (11.7-14.4)
[2019-10-13 07:22] LABS: ALANINE AMINOTRANSFERASE 18 IU/L (0-55); ALBUMIN 2.4 g/dL (3.5-5.0); ALKALINE PHOSPHATASE 81 IU/L (40-150); ANION GAP 9.4 mmol/L (8-16); BILIRUBIN,DIRECT 0.1 mg/dL (0.0-0.5); BLOOD UREA NITROGEN 7 mg/dL (7-26); BUN/CREATININE RATIO 10 (6-25); CARBON DIOXIDE 25 mmol/L (22-29); CHLORIDE 110 mmol/L (98-107); CREATININE, SERUM 0.72 mg/dL (0.57-1.11); EST GLOMERULAR FILTRATION RATE > 60 ML/MIN (60-); GLUCOSE 76 mg/dL (74-118); POTASSIUM 3.4 mmol/L (3.5-5.1); SODIUM 141 mmol/L (136-145)
--- NOTE | 2019-10-13 07:29 | NUR ---
PATIENT SITTING UP IN BED CLEANING HER TEETH, NO COMPLAIN VOICED, BED IN LOWER POSITION, CALL LIGHT AT REACH.
[2019-10-13 07:42] LABS: THYROID STIMULATING HORMONE 3.026 uIU/mL (0.350-4.940)
[2019-10-13] MEDS: ONDANSETRON HCL INJ 2MG/ML 2ML 2 MG/ML VIAL IV PRN (08:50)
[2019-10-13] MEDS ORDERED: CHOLESTYRAMINE 4 GM PACKET PO SCH (09:00)
[2019-10-13] MEDS ORDERED: MAGNESIUM SULFATE 2GM/50ML 50 ML IV ONE (09:30)
[2019-10-13] MEDS: CYCLOBENZAPRINE HCL 10 MG TAB PO SCH ×3 (09:44→20:32)
[2019-10-13] MEDS: GABAPENTIN 400 MG CAP PO SCH ×3 (09:44→20:32)
[2019-10-13] MEDS: CITALOPRAM HYDROBROMIDE 20 MG TAB PO SCH (09:44)
[2019-10-13] MEDS: DICYCLOMINE HCL 20 MG TAB PO SCH ×4 (09:44→20:31)
[2019-10-13] MEDS: LACTOBACILLUS ACIDOPHILUS CAPSULE PO SCH ×2 (09:44→17:57)
[2019-10-13] MEDS: TIZANIDINE HCL 4 MG TAB PO SCH ×3 (09:44→20:32)
[2019-10-13] MEDS: PANTOPRAZOLE 40 MG 10ML VIAL IV SCH ×2 (09:44→17:57)
[2019-10-13] MEDS ORDERED: POTASSIUM CHLORIDE 20 MEQ TAB CR PO NR (09:45)
[2019-10-13] MEDS: LEVOFLOXACIN 500 MG TAB PO SCH (09:45)
--- NOTE | 2019-10-13 11:21 | NUR ---
PATIENT ASSISTED TO THE RESTROOM AND BACK TO BED, CALL LIGHT AT REACH.
--- NOTE | 2019-10-13 15:48 | NUR ---
PATIENT SITTING UP IN BED TALKING TO FAMILY MEMBER VISITING. CALL LIGHT AT REACH.
[2019-10-13] MEDS: LACTATED RINGER'S 1,000 ML INJ SCH (17:30)
[2019-10-13] MEDS: ENOXAPARIN SOD INJ 40 MG/0.4 ML SYR SC SCH (17:57)
--- NOTE | 2019-10-13 19:11 | NUR ---
BED SIDE SHIFT REPORT GIVEN TO ON COMING NURSE.
--- NOTE | 2019-10-13 19:30 | NUR ---
received report from day nurse. patient is resting comfortably in the bed. bed is in the lowest position and call valverde is within reach. will continue to monitor patient.
[2019-10-13] MEDS: ZOLPIDEM TARTRATE 10 MG TAB PO SCH (20:31)
[2019-10-13] MEDS: MIRTAZAPINE 15 MG TAB PO SCH (20:32)
[2019-10-13] MEDS: TEMAZEPAM 15 MG CAP PO SCH (20:32)
[2019-10-13] MEDS: DIPHENOXYLATE/ATROPINE TAB PO PRN (20:43)
[2019-10-13] MEDS: HYDROMORPHONE 1MG/1ML INJ IV PRN (23:45)
[2019-10-14] VITALS (7 sets, daily range): BP systolic 110–131; BP diastolic 68–95
[2019-10-14] MEDS: DIPHENOXYLATE/ATROPINE TAB PO PRN (01:09)
--- NOTE | 2019-10-14 01:09 | NUR ---
GI DOCTOR ON UNIT ROUNDING ON PATIENT. GI DOCTOR HAS GIVEN ORDER TO GIVEN PATIENT AN EXTRA DOSE OF LAMOTIL TO HELP WITH THE LOOSE STOOLS.
[2019-10-14] MEDS: HYDROMORPHONE 1MG/1ML INJ IV PRN (03:49)
[2019-10-14] MEDS: ONDANSETRON HCL INJ 2MG/ML 2ML 2 MG/ML VIAL IV PRN ×2 (03:49→22:24)
[2019-10-14] MEDS: LOPERAMIDE HCL 2 MG CAP PO PRN (05:03)
[2019-10-14] MEDS: PROMETHAZINE HCL 25 MG TAB PO SCH ×3 (05:03→18:01)
[2019-10-14] MEDS: DIAZEPAM 5 MG TAB PO SCH ×3 (05:03→21:51)
[2019-10-14] MEDS: ACETAMINOPHEN/CODEINE 300MG - 30MG TAB PO SCH ×3 (05:03→18:01)
--- NOTE | 2019-10-14 06:33 | NUR ---
patient is resting in the bed. bed is in the lowest position and call light is within reach. no signs of distress noted.
--- NOTE | 2019-10-14 07:20 | NUR ---
PATIENT SITTING UP IN BED TALKING ON THE PHONE, NO DISTRESS NOTED. IV FLUID INFUSING ORDERED. BED IN LWER POSITION, CALL LIGHT AT REACH.
[2019-10-14] MEDS: LACTATED RINGER'S 1,000 ML INJ SCH (08:56)
[2019-10-14] MEDS: CITALOPRAM HYDROBROMIDE 20 MG TAB PO SCH (09:29)
[2019-10-14] MEDS: PANTOPRAZOLE 40 MG 10ML VIAL IV SCH (09:29)
[2019-10-14] MEDS: DICYCLOMINE HCL 20 MG TAB PO SCH ×4 (09:29→21:50)
[2019-10-14] MEDS: DIPHENOXYLATE/ATROPINE TAB PO SCH ×3 (09:30→21:00)
[2019-10-14] MEDS: TIZANIDINE HCL 4 MG TAB PO SCH ×3 (09:30→21:51)
[2019-10-14] MEDS: CHOLESTYRAMINE 4 GM PACKET PO SCH ×2 (09:30→17:00)
[2019-10-14] MEDS: LACTOBACILLUS ACIDOPHILUS CAPSULE PO SCH ×2 (09:30→18:00)
[2019-10-14] MEDS: GABAPENTIN 400 MG CAP PO SCH ×3 (09:30→21:51)
[2019-10-14] MEDS: CYCLOBENZAPRINE HCL 10 MG TAB PO SCH ×3 (09:30→21:50)
[2019-10-14] MEDS: LEVOFLOXACIN 500 MG TAB PO SCH (10:10)
--- NOTE | 2019-10-14 11:27 | NUR ---
FAMILY MEMBER WHEELING PATIENT IN THE HALLWAY, NO COMPLAIN VOICED. WILL CONTINUE TO MONITOR.
--- NOTE | 2019-10-14 12:07 | Progress Note ---
DATE: SUBJECTIVE: The patient is seen and evaluated. Available labs and notes reviewed. Discussed with the patient. Discussed with her . Discussed with the nurse. The patient remains with diarrhea. States that she had six bowel movements since 3 o'clock in the morning and right now it is 10 o'clock in the morning. Remains with some general abdominal discomfort, but appetite is good. No nausea, no vomiting, no fever, no chills. OBJECTIVE: VITAL SIGNS: Temperature is 97.5, pulse is 94, respiration 20, and blood pressure 126/85. GENERAL: Sleepy, alert this morning, probably from pain medication per my discussion with the patient and her , no acute distress. CV: S1, S2. CHEST: Equal expansion. Clear to auscultation. No acute distress. ABDOMEN: Soft, obese with discomfort. Positive bowel sounds. HEENT: Moist. No pallor. No JVD. EXTREMITIES: Moves all. No significant edema. MEDICATIONS: Medication list reviewed. From Infectious Disease point of view, the patient is on Levaquin and Flagyl. LABORATORY STUDIES: No new CBC or BMP from today. White count is within normal yesterday. MICROBIOLOGY: Urine culture E coli. Stool negative for Salmonella or Shigella. Also, negative for Campylobacter. Blood cultures negative. RADIOLOGY STUDIES: No new radiology studies. Pathology; no new pathology. ASSESSMENT AND PLAN: 1. Sepsis on admission-resolved. 2. Diarrhea. 3. Fever. 4. Gastroenteritis. 5. Depression. The patient remains with diarrhea, we will continue to monitor the patient. The patient is currently on Levaquin and Flagyl. We will discuss with Dr. Moore in detail. Please refer to chart for more information. MD LEONEL Bentley/DOROTHY /[id number]
--- NOTE | 2019-10-14 16:17 | NUR ---
MD IN TO SEE PATIENT. ORDER RECEIVED TO DISCHARGE PATIENT TOMORROW MORNING.
[2019-10-14] MEDS: ENOXAPARIN SOD INJ 40 MG/0.4 ML SYR SC SCH (18:00)
--- NOTE | 2019-10-14 19:00 | NUR ---
RECEIVED PATIENT IN BEDSIDE SHIFT REPORT. PATIENT RESTING IN BED AT THIS TIME. HEADACHE REPORTED. NO S&S OF DISTRESS NOTED. BED LOCKED IN LOWEST POSITION, SIDE RAILS UPX2, CALL LIGHT IN REACH.
[2019-10-14] MEDS: ZOLPIDEM TARTRATE 10 MG TAB PO SCH (21:50)
[2019-10-14] MEDS: TEMAZEPAM 15 MG CAP PO SCH (21:51)
[2019-10-14] MEDS: PANTOPRAZOLE SOD 40 MG TABEC PO SCH (21:51)
[2019-10-14] MEDS: MIRTAZAPINE 15 MG TAB PO SCH (21:51)
[2019-10-14] MEDS ORDERED: PROMETHAZINE HCL 25 MG TAB PO PRN ×2 (23:00)
[2019-10-15] VITALS: BP 122/80
[2019-10-15] MEDS: ACETAMINOPHEN/CODEINE 300MG - 30MG TAB PO SCH
[2019-10-15 01:39] VITALS: BP 121/86
[2019-10-15] MEDS: PROMETHAZINE HCL 25 MG TAB PO SCH ×2 (02:49→07:01)
[2019-10-15] MEDS: HYDROMORPHONE 1MG/1ML INJ IV PRN (02:56)
[2019-10-15 04:00] VITALS: BP 120/79
[2019-10-15] MEDS: DIAZEPAM 5 MG TAB PO SCH (07:01)
[2019-10-15 07:26] VITALS: BP 112/74
--- NOTE | 2019-10-15 07:27 | NUR ---
PATIENT IN BED RESTING WITH EYES CLOSED, NO DISTRESS NOTED. BED IN LOWER POSITION, CALL LIGHT AT REACH.
[2019-10-15 07:45] VITALS: BP 112/74
[2019-10-15] MEDS: CHOLESTYRAMINE 4 GM PACKET PO SCH (09:00)
[2019-10-15] MEDS: DIPHENOXYLATE/ATROPINE TAB PO SCH (09:00)
[2019-10-15] MEDS: CYCLOBENZAPRINE HCL 10 MG TAB PO SCH (09:40)
[2019-10-15] MEDS: GABAPENTIN 400 MG CAP PO SCH (09:40)
[2019-10-15] MEDS: PANTOPRAZOLE SOD 40 MG TABEC PO SCH (09:40)
[2019-10-15] MEDS: DICYCLOMINE HCL 20 MG TAB PO SCH (09:40)
[2019-10-15] MEDS: LACTOBACILLUS ACIDOPHILUS CAPSULE PO SCH (09:40)
[2019-10-15] MEDS: CITALOPRAM HYDROBROMIDE 20 MG TAB PO SCH (09:40)
[2019-10-15] MEDS: LEVOFLOXACIN 500 MG TAB PO SCH (09:41)
[2019-10-15] MEDS: TIZANIDINE HCL 4 MG TAB PO SCH (09:41)
[2019-10-15] MEDS ORDERED: LOMOTIL TABLET1 EACH PO (10:15)
--- NOTE | 2019-10-15 10:50 | NUR ---
PATIENT DISCHARGED HOME. DISCHARGE INSTRUCTIONS, PRESCRIPTION, AND FOLLOW UP GIVEN TO PATIENT, SHE VERBALIZED UNDERSTANDING. IV TO RIGHT AC REMOVED WITH TIP INTACT. ALL PERSONAL ITEMS TAKEN WITH PATIENT. LEFT UNIT PER WHEEL CHAIR TO FRONT LOBBY IN STABLE CONDITION.
--- NOTE | 2019-10-15 11:18 | Progress Note ---
DATE: SUBJECTIVE: The patient is seen and evaluated. Available labs and notes reviewed. Discussed with the nurse. REVIEW OF SYSTEMS: Diarrhea improved. Appetite seems to be good. Eating breakfast. No nausea. No vomiting. No headache. No rash. No dysuria. PHYSICAL EXAMINATION: VITAL SIGNS: Temperature 98.6, pulse 80, respiration 18, and blood pressure 112/74. GENERAL: Alert and oriented, no acute distress. CV: S1-S2. CHEST: Equal expansion. Clear to auscultation. No acute distress. ABDOMEN: Soft, nontender. Bowel sounds positive. Obese. EXTREMITIES: Moves all. No acute distress. MEDICATIONS: Medication list reviewed from Infectious Disease point of view, the patient is on Levaquin and Flagyl. LABORATORY STUDIES: White count 5.64, hemoglobin 9.5, platelet 334. Sodium 141, potassium 3.4, creatinine 0.72. Serology; no new serology available. Microbiology; no new microbiology. Radiology; no new radiology. ASSESSMENT AND PLAN: 1. Diarrhea-improved. 2. Sepsis on admission, resolved. 3. Temperature, fever resolved. She was admitted with a maximum temperature 101.2 and then x1 and since then, no temperature greater than 100. 4. Depression. 5. Debility. 6. Stop the Levaquin and Flagyl. Monitor the patient off the antibiotics. Further management of this patient is based on daily findings on laboratory and physical examination. Discussed with Dr. Moore in details. Please refer to chart for more information. Dictated by Devante Zimmerman PA-C (Al) Corie Moore MD /MODL /[id number]
[2019-10-15] MEDS ORDERED: PROMETHAZINE HCL 25 MG TAB PO PRN (21:00)
--- NOTE | 2019-10-16 13:20 | Discharge Summary ---
FINAL DIAGNOSES: Abdominal pain with nausea and watery diarrhea. SECONDARY DIAGNOSES: 1. Acute myeloid leukemia per patient. 2. Rhabdomyolysis, resolved. 3. Chronic pain syndrome with pain pump. CONSULTANTS: 1. Dr. Moore, Infectious Disease. 2. Dr. Leonard Lobo, GI. PROCEDURES/STUDIES PERFORMED: CT of the abdomen and pelvis. HISTORY: Per H and P. HOSPITAL COURSE: The patient was admitted. Empiric Levaquin and Flagyl were given, however, no improvement. The patient's C. diff was negative and COVID was negative as well. With anti-diarrhea medicine, the patient slowly got better. With hydration, her CPK came down nicely as well. CONDITION ON DISCHARGE: Improved. DISCHARGE MEDICATIONS: Please see medication reconciliation form. MD HALI Patel/ODROTHY /[id number]
== END 2019-10-15 10:51 | disposition home or self-care (01) | DRG 872 ==
LOC: ER 07:58 → ERHOLD 12:04 → MED/SURG3 13:38
PROVIDERS: ADMIT Internal Medicine; ATTEND Internal Medicine
DX: A41.9 Sepsis, unspecified organism (principal); M62.82 Rhabdomyolysis; E87.1 Hypo-osmolality and hyponatremia; K52.9 Noninfective gastroenteritis and colitis, unspecified; E87.6 Hypokalemia; E86.0 Dehydration; G43.909 Migraine, unspecified, not intractable, without status migrainosus; Z90.49 Acquired absence of other specified parts of digestive tract; F17.210 Nicotine dependence, cigarettes, uncomplicated; M54.9 Dorsalgia, unspecified; F32.9 Major depressive disorder, single episode, unspecified; Z85.41 Personal history of malignant neoplasm of cervix uteri; Z85.6 Personal history of leukemia; Z98.84 Bariatric surgery status; G89.4 Chronic pain syndrome; E66.9 Obesity, unspecified; B96.20 Unspecified Escherichia coli [E. coli] as the cause of diseases classified elsewhere; Z86.010 Personal history of colon polyps; Z68.33 Body mass index [BMI] 33.0-33.9, adult
CPT/HCPCS: 36415; 70450; 71045; 74176; 80048; 80053; 80076; 81001; 82270; 82550; 82553; 83605; 83630; 83690; 83735; 84145; 84443; 84484; 84702; 85025; 86140; 87040; 87045; 87086; 87186; 87493; 87635; 93005; 99284; J1170; J1644; J1650; J1885; J2405; J2930; J3475; J7030; J7121

== ENCOUNTER 2019-10-17 19:39 | Inpatient (IN) | payer BC, OTHER ==
[~2019-10-17] VITALS: Ht 170.2 cm; Wt 97.1 kg
[~2019-10-17 19:39] MED LIST changes: +MERTAZAPINE PO
--- OUTSIDE RECORDS SUMMARY | 2019-10-17 19:42 | XMS REPORT | Clinical Summary ---
Author Author ANDRY MYOS Organization [facility] Address Unknown Phone Unavailable Care Team Providers Care Advertising Job Titles Name Role Phone Blair Hunt Unavailable Sharpless [...] Not on file Results Not on fileafter 10/16/2018 Insurance Payer Benefit Subscriber ID Type Phone Address Plan / Group BLUE CROSS/BLUE SHIELD BCBS ADV xxxxxxxxxxxx [phone] [address] [place] [address] EXCHANGE Advance Directives For more information, please contact: [facility] [address] [place] [address] Date Inactivated Comments Code Status [...]
--- OUTSIDE RECORDS SUMMARY | 2019-10-17 19:42 | XMS REPORT | Clinical Summary ---
Author Author Rangel [facility] Organization [facility] Address Unknown Phone Unavailable Care Team Providers Care Customer Experience Professional Name Role Phone Miko Bahena DO PCP [phone] Allergies Comments Active Allergy Reactions Severity [...] ot Implanted Type Area Manufactur er 07/12/2018 [id number] / / [id number] Pump Infsn Synchromed Ii W/ Fltr Neurosurgi Right: Abdome n, [employer] Sut Loop Prgrmbl Rsvr 20ml - bert Lower Quadrant N EUROMODUL [id number] Implants ATION Implanted: Qty: 1 on 02/15/2017 by Asad Ritchie MD at [facility] 12/12/2021 [id number] / / [id number] Passer Cath W/ Rmvbl Hndl And Ppe Neurosurgi Right: Abdom en, [employer] Obtrtr 38cm Strl - [id number] bert Lower Quadrant U SA - Implanted: Qty: 1 on 02/15/2017 by Implants MELINA Asad Larson MD at [facility] [place] 08/29/2020 [id number] / / [id number] Closure Wnd Tiss Rpr Sys - Surgical Right: Abdomen, AN ULEX [id number] Implants; Lower Quadrant TECHNOLOGI Implanted: Qty: 1 on 02/15/2017 by [employer]; [employer] Asad Ritchie MD at [facility] Extenders; Surgical Wires Results Not on fileafter 10/16/2018 Insurance Type Payer Benefit Subscriber ID Effective Phone Address Plan / Dates Group Exchange BCBS EXCHANGE BLUE xxxxxxxxxxxx 2016-P ADVANTAGE resent HMO EXCH [id number] Advance Directives For more information, please contact: [phone] 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
--- OUTSIDE RECORDS SUMMARY | 2019-10-17 19:45 | XMS REPORT | Continuity of Care Document ---
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 Phone [employer] Information [employer] Unavailable Un available Problems Problem Status Onset Date Classification Date Reported Comments Source Urticaria, unspecified 08/05/2016 08/08/2016 [facility] ALLERGIC REACTION Active 08/05/2016 [facility] Unspecified abdominal pain 07/13/2016 07/16/2016 [facility] Pain in unspecified joint 07/13/2016 07/16/2016 [facility] FEVER Active 07/13/2016 [facility] DIVERTICULITIS Active 07/13/2016 [facility] ABD PAIN Active 04/29/2016 [facility] ABDOMINAL PAIN Active 04/29/2016 [facility] INTRACTABOLE ABDOMINAL PAIN Ac tive 04/11/2016 [facility] SIDE PAIN Active 04/11/2016 [facility] Discharge Diagnosis: Abdominal pain 04/06/2016 04/09/[address] [facility] [address] SCAN, DR SENT Active 04/05/2016 [facility] Discharge Diagnosis: Acute pyelonephritis 03/02/2016 03/05/2016 [facility] DOC SEND Active 03/02/2016 [facility] Discharge Diagnosis: Contusion of left u pper arm, initial encounter 03/20/2015 03/23/2015 [facility] ARM INJURY Active 03/20/2015 [facility] Discharge Diagnosis: Transaminitis 09/14/2014 10/03/2014 [facility] Discharge Diagnosis: Abdominal pain in female patient 09/14/2014 10/03/2014 [facility] INTRACTABLE NAUSEA AND VOMITING Active 09/13/2014 [facility] Discharge Diagnosis: Contusion of foot, left 02/09/2014 02/11/2014 [facility] Discharge Diagnosis: Pain in left foot 02/09/2014 02/11/2014 [facility] FOOT PAIN Active 02/09/2014 [facility] VOMITING,NAUSEA Active 12/10/2013 [facility] NAUSEA AND VOMITING Active 12/10/2013 [facility] Discharge Diagnosis: Headache 12/07/2013 12/09/[address] [facility] [address] SENT Active 12/06/2013 [facility] Discharge Diagnosis: Abdominal pain 09/13/2013 09/15/2013 [facility] Discharge Diagnosis: Elevated liver function tests 09/02/2013 09/12/2013 [facility] Discharge Diagnosis: Nausea and vomiting 09/02/2013 09/12/2013 [facility] Discharge Diagnosis: abdominal pain/elevated lft's 09/01/2013 09/03/2013 [facility] VOMITING Active 09/01/2013 [facility] INTRACTABLE VOMITING, ELEVATED LIVER ENZ Active 09/01/2013 [facility] VOMITING/ABD PAIN/SWELLING ABD Active 08/31/2013 [facility] BLOATING/GASTRIC PAIN/NAUSEA/PIPER/VOMITING Active 08/29/2013 [facility] SOB Active 0 06/05/2013 [facility] ASTHMATIC BRONCHITIS Active 06/05/2013 [facility] CHEST AND ARM COMPLAINTS Active 02/11/2013 [facility] OVERDOSE Active 10/19/2012 [facility] SEIZURES Active 09/27/2012 [facility] RENAL COLIC, ABDOMINAL PAIN, DEHYDRATION Active 08/06/2012 [facility] SEIZURE Active 07/17/2012 [facility] URINARY RETENTION Active 07/09/2012 [facility] BACK PAIN Active 07/07/2012 [facility] 789.00 - ABDMNAL PAIN UN Active 06/29/2012 [facility] [place] FALL Active 05/31/2012 [facility] 719.45 - JOINT PAIN-PELV Active 03/06/2012 MICHA[facility] ALLERGIC REATION Active 01/24/2012 [facility] GI BLEED Active 12/31/2011 [facility] HEADACHE Active 12/31/2011 [facility] RECTAL BLEED, NO BOWEL MOVEMENT X 5DAYS Active 12/30/2011 [facility] SYNCOPE Active 10/14/2011 [facility] LOWER BACK PAIN Active 10/08/2011 [facility] SYNCOPE, ANEMIA, HYPERNATREMIA Active 10/08/2011 [facility] Abdominal pain Active Problem 02/14/2013 [facility] PID Shaun,[facility] Anxiety Active Problem 02/14/2013 [facility], MICHAEL Dunn, [facility] Cancer of cervix Active Problem 02/14/2013 [facility] PID Shaun,[facility] Depression Active Problem 02/14/2013 [facility], MICHAEL Dunn, [facility] Female genital organ symptoms Active Problem 07/2012 2CANCELLED [facility], MICHAEL Dunn,[facility] Gastric bypass operation Active Problem 02/14/2013 [facility], Ruma Dunn,[facility] Laparoscopic procedure Active Problem 02/14/2013 [facility], O PID Shaun,[facility] Lumbar puncture headache Active Problem 10/18/2011 [facility] Lysis of adhesions Active Problem 02/14/2013 [facility], O PID Sha[place],[facility] Migraine Active Problem 02/14/2013 [facility], MICHAEL Dunn, [facility] Sinusitis Active Problem 02/14/2013 [facility], MICHAEL Dunn, [facility] Ulcer Active Problem 02/14/2013 [facility], MICHAEL Dunn, [facility] Lumbar puncture headache Active Problem 02/14/2013 [facility], O PID Shaun,[facility] Kidney infection Resolved Problem 02/14/2013 [facility] [place] Malabsorption Resolved Problem 02/14/2013 [facility], [place] Cancer Resolved Problem 02/14/2013 1cervical [facility] Abdominal pain (finding) Active Problem 08/08/2016 [facility] [place] Anxiety (finding) Active Problem 08/08/2016 [facility] [place] bipolar(Confirmed) Resolved Problem 02/11/2014 [facility] [place] Malignant neoplasm, primary (morphologic abnormality) Resolved Problem 03/05/2016 cervical MICHAEL Lucas,[facility] Malignant tumor of cervix (disorder) Active Problem [facility] [place] Depressive disorder (disorder) Active Problem [facility] [place] Female genital organ symptoms (finding) Active Problem 08/08/2016 [facility] Esophagogastrostomy, antesternal or ante thoracic (procedure) Active Prob [place] 08/08/2016 [facility] high cholesterol(Confirmed) Re solved Problem [facility] [place] hx cerv cancer(Confirmed) Reso lved Problem [facility] [place] hx gastric bypass(Confirmed) R esolved Problem [facility] [place] hypoglycemia(Confirmed) Resolv ed Problem [facility] [place] Infectious disorder of kidney (disorder) Resolved Problem 08/08/2016 [facility] [place],[facility] Laparoscopic-assisted procedure (procedure) Active Problem 08/08/2016 [facility] [place],[facility] Lumbar Fusion L3 S1(Confirmed) Resolved Problem [facility] [place] lumbar fusion surgery(Confirmed) Resolved Problem [facility] [place] Headache following lumbar puncture (disorder) Active Problem 08/08/2016 MICHAEL [place],[facility] Lysis of adhesions (procedure) Active Problem [facility] [place] Malabsorption syndrome (disorder) Resolved Problem [facility] [place] Migraine (disorder) Active Problem 08/08/2016 [facility] [place] Sinusitis (disorder) Active Problem 08/08/2016 [facility] [place] Ulcer (morphologic abnormality) Active Problem [facility] [place] Biopsy of liver (procedure) Ac tive Problem [facility] [place] bipolar Resolved Problem 06/12/2013 [facility] high cholesterol Resolved Problem 06/12/2013 [facility] hx cerv cancer Resolved Problem 06/12/2013 [facility] hx gastric bypass Resolved Problem 06/12/2013 [facility] hypoglycemia Resolved Problem 06/12/2013 [facility] Lumbar Fusion L3 S1 Resolved Problem 06/12/2013 [facility] lumbar fusion surgery Resolved Problem 06/12/2013 [facility] Endometriosis (disorder) Active Problem 08/08/2016 [facility] Polycystic ovaries (disorder) Resolved Problem [facility] Carcinoma of cervix (disorder) Resolved Problem [facility] Crohn's disease (disorder) Res olved Problem [facility] History of bypass of stomach (situation) Resolved Problem 08/08/2016 [facility] Hypoglycemia (disorder) Resolv ed Problem [facility] Systemic lupus erythematosus (disorder) Resolved Problem 08/08/2016 [facility] Mechanical complication of internal orth opedic device, implant AND/OR graft (disorder) Resolved Problem 08/08/2016 [facility] SYNCOPE AND COLLAPSE Active [facility] ANEMIA NOS [facility] RETENTION OF URINE NOS [facility] ABDMNAL PAIN UNSPCF SITE Active [facility] BRONCHITIS NOS Active [facility] VOMITING ALONE Active [facility] NAUSEA WITH VOMITING Active [facility] UNSPECIFIED ABDOMINAL PAIN Act jose maria [facility] Medications Medication Details Route Status Patient Instructions Ordering Provider Order Date Source Phenergan 25 mg, Route: IM, ON CE, Dosing Weight 68.636, kg, Priority: STAT, Start date: 08/05/16 5:41:00 CDT, Stop date: 08/05/16 5:41:00 CDT Inactive 08/05/2016 [facility] 0.3 ML Epinephrine 1 MG/ML Prefilled Syringe 0.3 mg, IM, PRN, PRN allergic reaction or asthma, inject into leg for severe allergic reaction, # 1 kit, 0 Refill(s) Active 08/05/2016 [facility] Prednisone 50 MG Oral Tablet 5 0 mg = 1 tab, PO, Daily, X 5 day, # 5 tab, 0 Refill(s) Active 08/05/2016 [facility] Famotidine 20 MG Oral Tablet 2 0 mg = 1 tab, PO, BID, # 28 tab, 0 Refill(s) Active 08/05/2016 [facility] Hydroxyzine Hydrochloride 25 MG Oral Tablet 25 mg = 1 tab, PO, QID, X 14 day, # 56 tab, 0 Refill(s) Active 08/05/2016 [facility] Diphenhydramine 50 mg, Route: IM, ONCE, Dosing Weight 68.636, kg, Priority: STAT, Start date: 08/05/16 3:06:00 CDT, Stop date: 08/05/16 3:06:00 CDT Inactive 08/05/2016 [facility] Famotidine 20 mg, Route: PO, O NCE, Dosing Weight 68.636, kg, Priority: STAT, Start date: 08/05/16 3:06:00 CDT, Stop date: 08/05/16 3:06:00 CDT Inactive 08/05/2016 [facility] methylPREDNISolone SODium SUCCinate 125 mg, Route: IM, ONCE, Dosing Weight 68.636, kg, Priority: STAT, Start date: 08/05/16 3:06:00 CDT, Stop date: 08/05/16 3:06:00 CDT Inactive 08/05/2016 [facility] Phenergan Notes: Do not give I V push. (Same as: Phenergan) No Longer Active 07/13/2016 [facility] Phenergan 12.5 mg, Route: IVPB , ONCE, Dosing Weight 65, kg, PRN Nausea & Vomiting, Start date: 07/13/16 11:16:00 [employer] Inactive 07/13/2016 [facility] Fentanyl 50 microgram, Route: IV, ONCE, Dosing Weight 65, kg, Start date: 07/13/16 11:16:00 [employer], Stop date: 07/13/16 11:16:00 [employer] Inactive 07/13/2016 [facility] Acetaminophen 325 MG / Hydrocodone Faby trate 5 MG Oral Tablet [Reedy 5/325] 1 tab, PO, Q4H, PRN for pain, X 5 day, # 24 tab, 0 Refill(s) Active 07/13/2016 [facility] Cipro 400 mg, Route: IVPB, ONC E, Dosing Weight 65, kg, Priority: STAT, Start date: 07/13/16 10:18:00 [employer], Stop date: 07/13/16 10:18:00 [employer] Inactive 07/13/2016 [facility] Flagyl 500 mg, Route: IVPB, ON CE, Dosing Weight 65, kg, Priority: STAT, Start date: 07/13/16 10:18:00 [employer], Stop date: 07/13/16 10:18:00 [employer] Inactive 07/13/2016 [facility] Acetaminophen 325 MG / Hydrocodone Faby trate 5 MG Oral Tablet [Reedy 5/325] 1 tab, Route: PO, Drug Form: TAB, Dosing Weight 65, kg, ONCE, STAT, Start date: 07/13/16 9:51:00 [employer], Stop date: 07/13/16 9:51:00 [employer] Inactive 07/13/2016 [facility] Fentanyl 50 microgram, Route: IVP, ONCE, Dosing Weight 65, kg, Priority: STAT, Start date: 07/13/16 7:59:00 [employer], Stop date: 07/13/16 7:59:00 [employer] Inactive 07/13/2016 [facility] Fentanyl Notes: (Same as: Subl imaze) Preservative free. Inactive 07/13/2016 [facility] Phenergan Notes: Do not give I V push. (Same as: Phenergan) Inactive 07/13/2016 [facility] Zofran 4 mg, Route: IVP, Drug form: INJ, ONCE, Dosing Weight 65, kg, Priority: STAT, Start date: 07/13/16 5:28:00 [employer], Stop date: 07/13/16 5:28:00 [employer] Inactive 07/13/2016 [facility] Morphine 4 mg, Route: IVP, ONC E, Dosing Weight 65, kg, Priority: STAT, Start date: 07/13/16 5:28:00 [employer], Stop date: 07/13/16 5:28:00 [employer] Inactive 07/13/2016 [facility] Sodium Chloride 0.154 MEQ/ML Injectable Solution 1,000 mL, 1,000 ml/hr, Infuse Over: 1 hr, Route: IV, 1,000, Drug form: INJ, ONCE, Priority: STAT, Dosing Weight 65 kg, Start date: 07/13/16 5:28:00 [employer], Duration: 1 doses or times, Stop date: 07/13/16 5:28:00 [employer] Inactive 07/13/2016 [facility] gabapentin 300 MG Oral Capsule 300 mg = 1 cap, PO, TID, # 90 cap, 0 Refill(s) Active 07/13/2016 [facility] mesalamine 500 MG Extended Release Capsule [Pentasa] 500 mg = 1 cap, PO, QID, # 120 cap, 0 Refill(s) Active 07/13/2016 [facility] Acetaminophen 300 MG / Codeine Phosphate 30 MG Oral Tablet [Tylenol with Codeine #3] 1 - 2 tab, PO, Q4H, PRN Pain, X 2 week, # 30 tab, 2 Refill(s) Active 05/10/2016 [facility] Enoxaparin Notes: (Same as: Lo venox) No Longer Active 05/10/2016 [facility] Hydromorphone 0.5 mg, 0.5 mL, Route: IVP, Drug form: INJ, Q5Min, Dosing Weight 68.835, kg, PRN Pain Score 7-10, Start date: 05/09/16 10:00:00 [employer], Duration: 4 doses or times, Stop date: Limited # of times Inactive 05/09/2016 [facility] Morphine Notes: (Same as:MORPh ine Sulfate) Inactive 05/09/2016 [facility] Naloxone Notes: Same as Narcan Inactive 05/09/2016 [facility] Flumazenil Notes: (Same as: Ro mazicon) Inactive 05/09/2016 [facility] Fentanyl Notes: (Same as: Subl imaze) Preservative free. Inactive 05/09/2016 [facility] Diphenhydramine Notes: (Same a s: Benadryl) Inactive 05/09/2016 [facility] Labetalol Notes: (Same as: Pavel modyne, Trandate) Push over 2 minutes Give bolus over 2-3 minutes. Inactive 05/09/2016 [facility] Acetaminophen Notes: Infuse ov er 15 minutes Do not exceed 4gm/day of acetaminophen MEDICATION WASTE Product Size: 1000 mg Product Wasted: ___ mg Inactive 05/09/2016 [facility] Metoprolol Notes: (Same as: Lo pressor) Push over 2 minutes Inactive 05/09/2016 [facility] Ketorolac 4 days MEDICA TION WASTE Product Size: 30 mg Product Wasted: ___ mg Inactive 05/09/2016 [facility] Ondansetron Notes: (Same as: Manoj parnell) MEDICATION WASTE Product Size: 4 mg Product Wasted: ___ mg Inactive 05/09/2016 [facility] Meperidine Notes: (Same As: De merol) Inactive 05/09/2016 [facility] Hydralazine Notes: (Same as: A presoline) Push over 5 minutes Inactive 05/09/2016 [facility] ondansetron (ANES) Route: IV, Drug form: INJ, ONCE, Stop date: 05/09/16 9:34:00 [employer] Inactive 05/09/2016 [facility] sugammadex (ANES) Route: IV, D rug form: SOLN, ONCE, Stop date: 05/09/16 9:34:00 [employer] Inactive 05/09/2016 [facility] phenylephrine (ANES) Route: IV , Drug form: INJ, ONCE, Stop date: 05/09/16 9:34:00 [employer] Inactive 05/09/2016 [facility] famotidine (ANES) Route: IV, D rug form: INJ, ONCE, Stop date: 05/09/16 9:22:00 [employer] Inactive 05/09/2016 [facility] scopolamine (ANES) Route: Galvez sdermal, Drug form: ERFILM, ONCE, Stop date: 05/09/16 9:22:00 [employer] Inactive 05/09/2016 [facility] dexamethasone (ANES) Route: IV , Drug form: INJ, ONCE, Stop date: 05/09/16 9:12:00 [employer] WORK[employer] Inactive 05/09/2016 [facility] rocuronium (ANES) Route: IV, D rug form: INJ, ONCE, Stop date: 05/09/16 9:12:00 [employer] Inactive 05/09/2016 [facility] propofol (ANES) Route: IV, David g form: INJ, ONCE, Stop date: 05/09/16 9:12:00 [employer] Inactive 05/09/2016 [facility] fentaNYL (ANES) Route: IV, David g form: INJ, ONCE, Stop date: 05/09/16 9:12:00 [employer] WORK[employer] Inactive 05/09/2016 [facility] lidocaine (ANES) Route: IV, Dr ug form: INJ, ONCE, Stop date: 05/09/16 9:12:00 [employer] Inactive 05/09/2016 [facility] midazolam (ANES) Route: IV, Dr ug form: SOLN, ONCE, Stop date: 05/09/16 9:07:00 [employer] Inactive 05/09/2016 [facility] ceFAZolin (ANES) (ANES) Route: IV, Drug form: INJ, Start date: 05/09/16 8:22:00 [employer], Stop date: 05/09/16 9:22:00 [employer] WORK[employer] Inactive 05/09/2016 [facility] LR 1000 mL INJ (ANES) Route: I V, Total Volume: 1,000, Start date: 05/09/16 8:21:00 [employer], Stop date: 05/09/16 9:21:00 [employer] Inactive 05/09/2016 [facility] D5W 1,000 mL 1,000 mL, Rate: 4 0 ml/hr, Infuse over: 25 hr, Route: IV, Dosing Weight 68.835 kg, Total Volume: 1,000, Start date: 05/08/16 10:53:00 [employer], Duration: 30 day, Stop date: 06/07/16 10:52:00 [employer] No Longer Active 05/08/2016 [facility] Relistor Notes: Same as: Relis tor Restricted to Palliative Care No Longer Active 05/07/2016 [facility] Miralax Notes: Dissolve in 8 o z of water or juice. (Same as: Miralax) No Longer Active 05/07/2016 [facility] Dilaudid 1 mg, 1 mL, Route: IV P, Drug form: INJ, Q6H, Dosing Weight 68.835, kg, PRN Pain Score 7-10, Start date: 05/06/16 17:35:00 [employer], Duration: 30 day, Stop date: 06/05/16 17:34:00 [employer] No Longer Active 05/06/2016 [facility] Dilaudid 1 mg, 1 mL, Route: IV P, Drug form: INJ, Q4H, Dosing Weight 68.835, kg, PRN Pain Score 7-10, Start date: 05/06/16 12:47:00 [employer], Duration: 30 day, Stop date: 06/05/16 12:46:00 [employer] WORK[employer] Inactive 05/06/2016 [facility] Hydromorphone 1 mg, 1 mL, Rout e: IV, Drug form: INJ, Q2H, Dosing Weight 66.364, kg, PRN Pain Score 4-6, Start date: 05/04/16 14:30:00 [employer], Duration: 30 day, Stop date: 06/03/16 14:29:00 [employer] No Longer Active 05/04/2016 [facility] Mesalamine (Pentasa) 500 mg capsule Mesalamine (Pentasa) 500 mg capsule, 1,000 mg, 2 cap, Drug form: MISC, Route: PO, TID, 05/04/16 13:00:00 [employer], Duration: 30 day, Stop date: 06/03/16 9:00:00 [employer] No Longer Active 05/04/2016 [facility] Propranolol Notes: Give with f ood. (Same as: Inderal) No Longer Active 05/03/2016 [facility] Citrate of Magnesia Notes: (Sa me as: Citrate of Magnesia) Concentration: 1.745 gm / 30 mL Inactive 05/01/2016 [facility] zolpidem Notes: (Same As: Ambi en) No Longer Active 05/01/2016 [facility] Mirtazapine Notes: (Same as:Re kenna) No Longer Active 05/01/2016 [facility] SENOKOT-S Notes: (Same as Gerri ruggierot-S) Equiv. to Marlene- Colace. No Longer Active 05/01/2016 [facility] pt own buprenorphine (Belbuca) pt own buprenorphine (Belbuca), 150 microgram, Drug form: MISC, Route: BUC, TID, PRN Pain Score 4-6, 04/30/16 20:11:00 [employer], Duration: 30 day, Stop date: 05/30/16 20:10:00 [employer] No Longer Active 05/01/2016 [facility] Propranolol Notes: Take with f ood. Do not crush or chew. (Same as: Inderal LA) N o Longer Active 04/30/2016 [facility] gabapentin 100 MG Oral Capsule Notes: (Same as: Neurontin) No Longer Active 04/30/2016 [facility] Diazepam Notes: (Same as: Sanchez um) No Longer Active 04/30/2016 [facility] Atropine 0.5 mg, 5 mL, Route: IVP, Drug form: INJ, ONCE, Dosing Weight 66.364, kg, PRN Bradycardia, Start date: 04/30/16 14:50:00 [employer] No Longer Active 04/30/2016 [facility] Nitroglycerin 0.4 MG Sublingual Tablet Notes: (Same as:Nitroquick, Nitrostat) "Do Not Crush" Sublingual tablet No Longer Active 04/30/2016 [facility] Chlordiazepoxide Hydrochloride 5 MG / Cl idinium bromide 2.5 MG Oral Capsule Notes: (Same As: Librax) No Longer Active 04/30/2016 [facility] Citrate of Magnesia Notes: (Sa me as: Citrate of Magnesia) Concentration: 1.745 gm / 30 mL Inactive 04/30/2016 [facility] Macrobid Notes: Not recommende d for patients with CrCl<50 ml/min (Same as:Macrobid) With food. No Longer Active 04/30/2016 [facility] Multivitamins with Folic Acid 0 .8 mg oral tablet 1 tab, Route: PO, Drug Form: TAB, Dosing Weight 66.364, kg, Daily, Start date: 04/30/16 9:00:00 [employer], Duration: 30 day, Stop date: 05/29/16 9:00:00 [employer] No Longer Active 04/30/2016 [facility] Pentasa 500 mg, Route: PO, TID , Dosing Weight 66.364, kg, Start date: 04/30/16 9:00:00 [employer], Duration: 30 day, Stop date: 05/29/16 17:00:00 [employer] Inactive 04/30/2016 [facility] Folic Acid Notes: (Same as: Fo lvite) No Longer Active 04/30/2016 [facility] Fentanyl 1 patch, Route: TOP, Drug form: ERFILM, Q72H, Dosing Weight 66.364, kg, Start date: 04/30/16 9:00:00 [employer], Duration: 30 day, Stop date: 05/27/16 9:00:00 [employer] No Longer Active 04/30/2016 [facility] Diazepam 10 mg, Route: PO, David g form: TAB, TID, Dosing Weight 66.364, kg, Start date: 04/30/16 9:00:00 [employer], Duration: 30 day, Stop date: 05/29/16 17:00:00 [employer] WORK[employer] Inactive 04/30/2016 [facility] Citalopram 40 mg, 4 tab, Route : PO, Drug form: TAB, Daily, Dosing Weight 66.364, kg, Start date: 04/30/16 9:00:00 [employer], Duration: 30 day, Stop date: 05/29/16 9:00:00 [employer] No Longer Active 04/30/2016 [facility] Please bring Pt's Own Buprenorphine to p harmacy for label Please bring Pt's Own Buprenorphine to p harmacy for label, Reminder, Drug form: MISC, Route: MISC, Q12H, 04/30/16 9:00:00 [employer], Duration: 30 day, Stop date: 05/29/16 21:00:00 [employer] WORK[employer] Inactive 04/30/2016 [facility] XIFAXAN Notes: Same as: Xifaxan No Longer Active 04/30/2016 [facility] pantoprazole Notes: Tablet lolis uld not be chewed or crushed. (Same as: Protonix) N o Longer Active 04/30/2016 [facility] Prednisone 1 MG Oral Tablet No kwabena: (Same as: PredniSONE) Take with food. No Longer Active 04/30/2016 [facility] Ondansetron Notes: (Same as: Z ofran) No Longer Active 04/30/2016 [facility] Temazepam Notes: (Same As: Res toril) No Longer Active 04/30/2016 [facility] 72 HR Scopolamine 0.0139 MG/HR Transdermal Patch Notes: Change patch every 72 hours (Same as: Transderm-Scop) No Longer Active 04/30/2016 [facility] Dicyclomine Notes: (Same as: B entyl) No Longer Active 04/30/2016 [facility] Buprenorphine 150 microgram, R oute: BUC, Drug form: FILM, TID, Dosing Weight 66.364, kg, PRN Pain Score 1-3, Start date: 04/30/16 8:27:00 [employer], Duration: 30 day, Stop date: 05/30/16 8:26:00 [employer] Inactive 04/30/2016 [facility] Promethazine Notes: (Same as: Phenergan) No Longer Active 04/30/2016 [facility] D5NS 1,000 mL 1,000 mL, Rate: 100 ml/hr, Infuse over: 10 hr, Route: IV, Dosing Weight 66.364 kg, Total Volume: 1,000, Start date: 04/30/16 7:08:00 [employer], Duration: 30 day, Stop date: 05/30/16 7:07:00 [employer] No Longer Active 04/30/2016 [facility] Hydromorphone 1.25 mg, 1.25 mL , Route: IV, Drug form: INJ, Q4H, Dosing Weight 66.364, kg, PRN Pain Score 6-10, Start date: 04/30/16 7:07:00 [employer], Stop date: 05/30/16 7:06:00 [employer] No Longer Active 04/30/2016 [facility] nitrofurantoin 100 mg, PO, BID , # 14 cap, 0 Refill(s) No Longer Active 04/30/2016 [facility] Pentasa 500 mg, PO, TID, 0 Ref ill(s) Inactive 04/30/2016 [facility] SENOKOT-S 2 tab, PO, Bedtime, 0 Refill(s) Active 04/30/2016 [facility] Classic 1 tab, PO, Da osiris, 0 Refill(s) Active 04/30/2016 [facility] diazepam 10 mg oral tablet 10 mg = 1 tab, PO, TID, 0 Refill(s) Active 04/30/2016 [facility] rifaximin 550 MG Oral Tablet [XIFAXAN] 550 mg = 1 tab, PO, BID, 0 Refill(s) Active 04/30/2016 [facility] ondansetron 8 mg oral tablet 8 mg = 1 tab, PO, TID, 0 Refill(s) Active 04/30/2016 [facility] mirtazapine 7.5 mg oral tablet 7.5 mg = 1 tab, PO, Bedtime, 0 Refill(s) Active 04/30/2016 [facility] Sodium Chloride 0.154 MEQ/ML Injectable Solution 1,000 mL, Rate: 125 ml/hr, Infuse over: 8 hr, Route: IV, Dosing Weight 65.455 kg, Total Volume: 1,000, Start date: 04/30/16 5:55:00 [employer], Duration: 30 day, Stop date: 05/30/16 5:54:00 [employer] Inactive 04/30/2016 [facility] Saline Flush 0.9% Notes: (Same as: BD Posiflush) No Longer Active 04/30/2016 [facility] Acetaminophen Notes: Do not ex ceed 4 gm/day. (Same as: Tylenol) No Longer Active 04/30/2016 [facility] Ondansetron Notes: (Same as: Manoj parnell) MEDICATION WASTE Product Size: 4 mg Product Wasted: ___ mg No Longer Active 04/30/2016 [facility] Morphine Notes: (Same as:MORPh ine Sulfate) Inactive 04/30/2016 [facility] Morphine 4 mg, Route: IVP, ONC E, Dosing Weight 65.455, kg, Priority: STAT, Start date: 04/30/16 5:01:00 [employer], Stop date: 04/30/16 5:01:00 [employer] Inactive 04/30/2016 [facility] Ondansetron 4 mg, Route: IVP, Drug form: INJ, ONCE, Dosing Weight 65.455, kg, Priority: STAT, Start date: 04/30/16 5:01:00 [employer], Stop date: 04/30/16 5:01:00 [employer] Inactive 04/30/2016 [facility] Hydromorphone 1 mg, Route: IVP , ONCE, Dosing Weight 65.455, kg, Priority: STAT, Start date: 04/30/16 0:06:00 [employer], Stop date: 04/30/16 0:06:00 [employer] Inactive 04/30/2016 [facility] Sodium Chloride 0.154 MEQ/ML Injectable Solution 1,000 mL, 2,000 ml/hr, Infuse Over: 30 minutes, Route: IV, 1,000, Drug form: INJ, ONCE, Priority: STAT, Dosing Weight 65.455 kg, Start date: 04/29/16 19:47:00 [employer], Duration: 1 doses or times, Stop date: 04/29/16 19:47:00 [employer] Inactive 04/30/2016 [facility] Ondansetron Notes: (Same as: Manoj parnell) MEDICATION WASTE Product Size: 4 mg Product Wasted: ___ mg Inactive 04/30/2016 [facility] Protonix Notes: Tablet should not be chewed or crushed. (Same as: Protonix) No Longer Active 04/13/2016 [facility] Pentasa 1,000 mg, 4 cap, Route : PO, Drug form: ERCAP, QID, Dosing Weight 64.091, kg, Start date: 04/12/16 17:00:00 [employer], Duration: 30 day, Stop date: 05/12/16 13:00:00 [employer] Inactive 04/12/2016 [facility] fentaNYL 25 mcg/hr transdermal film, extended release 1 patch, TOP, Q72H, 0 Refill(s) Active 04/12/2016 [facility] tizanidine 4 mg oral tablet 4 mg, PO, BID, 0 Refill(s) Active 04/12/2016 [facility] propranolol 80 mg oral capsule, extended release 80 mg = 1 cap, PO, Daily, # 30 cap, 0 Refill(s) Active 04/12/2016 [facility] promethazine 50 mg oral tablet 50 mg = 1 tab, PO, Q6H, PRN Nausea & Vomiting, # 40 tab, 0 Refill(s) Active 04/12/2016 [facility] citalopram 40 mg oral tablet 4 0 mg = 1 tab, PO, Daily, # 30 tab, 0 Refill(s) Active 04/12/2016 [facility] Folic Acid 2 mg, PO, Daily, 0 Refill(s) Active 04/12/2016 [facility] dicyclomine 10 mg oral capsule 20 mg = 2 cap, PO, TID, PRN Spasm, 0 Refill(s) Active 04/12/2016 [facility] predniSONE 10 mg oral tablet S ee Special Instructions, PO, Daily, 12 day regimen: 2 weeks - 30 mg (3 tabs) daily 2 weeks - 20 mg (2 tabs) daily 2 weeks- 1.5tabs daily 2 weeks - 10 mg (1 tab) daily 2 weeks - 1/2 tab daily, # 24 tab, 0 Refill(s) Active 04/12/2016 [facility] temazepam 30 mg oral capsule 3 0 mg = 1 cap, PO, Bedtime, PRN Sleep, # 14 cap, 0 Refill(s) Active 04/12/2016 [facility] gabapentin 100 MG Oral Capsule 100 mg = 1 cap, PO, TID, # 90 cap, 1 Refill(s) Active 04/12/2016 [facility] pantoprazole 40 mg oral enteric coated tablet 40 mg = 1 tab, PO, BID, 0 Refill(s) Active 04/12/2016 [facility] Vitamin B 12 1,000 microgram, IM, q 2 weeks, 0 Refill(s) Active 04/12/2016 [facility] 72 HR Scopolamine 0.0139 MG/HR Transdermal Patch 1.5 mg = 1 patch, TOP, Q72H, PRN Other-See Comments, # 4 ea, 0 Refill(s) Active 04/12/2016 [facility] mesalamine 500 MG Extended Release Capsule [Pentasa] 1,000 mg = 2 cap, PO, TID, # 120 cap, 0 Refill(s) Active 04/12/2016 [facility] Buprenorphine 0.15 MG Buccal Film [Belbuca] 150 microgram = 1 ea, BUC, TID, PRN Pain Score 1-3, 0 Refill(s) Active 04/12/2016 [facility] diazepam 10 mg oral tablet 10 mg = 1 tab, PO, TID, 0 Refill(s) Active 04/12/2016 [facility] zolpidem 12.5 mg oral tablet, extended release 12.5 mg = 1 tab, PO, Bedtime, PRN for sleep, 0 Refill(s) Active 04/12/2016 [facility] Chlordiazepoxide Hydrochloride 5 MG / Cl idinium bromide 2.5 MG Oral Capsule 2 cap, PO, TID-Before Meals, 0 Refill(s) Active 04/12/2016 [facility] Dilaudid 0.5 mg, 0.5 mL, Route : IV, Drug form: INJ, Q4H, Dosing Weight 64.091, kg, PRN Pain Score 6-10, Priority: Routine, Start date: 04/12/16 5:12:00 [employer], Duration: 30 day, Stop date: 05/12/16 5:11:00 [employer] Inactive 04/12/2016 [facility] Acetaminophen Notes: Do not ex ceed 4 gm/day. (Same as: Tylenol) Inactive 04/12/2016 [facility] Saline Flush 0.9% Notes: (Same as: BD Posiflush) Inactive 04/12/2016 [facility] D5W 1/2NS 1,000 mL 1,000 mL, R ate: 125 ml/hr, Infuse over: 8 hr, Route: IV, Dosing Weight 64.091 kg, Total Volume: 1,000, Start date: 04/12/16 5:12:00 [employer], Duration: 30 day, Stop date: 05/12/16 5:11:00 [employer] Inactive 04/12/2016 [facility] D5W 1/2NS 1,000 mL 1,000 mL, R ate: 75 ml/hr, Infuse over: 13.3 hr, Route: IV, Dosing Weight 64.091 kg, Total Volume: 1,000, Start date: 04/12/16 5:01:00 [employer], Duration: 30 day, Stop date: 05/12/16 5:00:00 [employer] Inactive 04/12/2016 [facility] Dilaudid 0.5 mg, Route: IVP, O NCE, Dosing Weight 64.091, kg, Priority: STAT, Start date: 04/12/16 5:00:00 [employer], Stop date: 04/12/16 5:00:00 [employer] Inactive 04/12/2016 [facility] Dilaudid 0.5 mg, 0.5 mL, Route : IVP, Drug form: INJ, ONCE, Dosing Weight 64.091, kg, Priority: STAT, Start date: 04/12/16 0:24:00 [employer], Stop date: 04/12/16 0:24:00 [employer] Inactive 04/12/2016 [facility] Phenergan Notes: Do not give I V push. (Same as: Phenergan) Inactive 04/12/2016 [facility] Saline Flush 0.9% Notes: (Same as: BD Posiflush) No Longer Active 04/12/2016 [facility] Acetaminophen 325 MG / Hydrocodone Faby trate 5 MG Oral Tablet [Reedy 5/325] 100.4 F, X 5 day, # 16 tab, 0 Refill(s) Active 04/06/2016 [facility] Dilaudid 1 mg, Route: IV, ONCE , Dosing Weight 64.091, kg, Start date: 04/06/16 2:07:00 [employer], Stop date: 04/06/16 2:07:00 [employer] Inactive 04/06/2016 [facility] Promethazine Notes: Do not giv e IV push. (Same as: Phenergan) Inactive 04/06/2016 [facility] Dilaudid 1 mg, Route: IV, ONCE , Dosing Weight 64.091, kg, Start date: 04/05/16 21:58:00 [employer], Stop date: 04/05/16 21:58:00 [employer] Inactive 04/06/2016 [facility] Ondansetron Notes: (Same as: Manoj parnell ODT) Inactive 04/06/2016 [facility] sodium chloride 0.9% 1000 ml INJ 1,000 m L + folic acid 1 mg + Vitamin B1 500 mg + multivitamin 10 m 1,000 mL, Rate: 100 ml/hr, Infuse over: 10.2 hr, Route: IV, Dosing Weight 64.091 kg, Total Volume: 1,015.2, Start date: 04/05/16 18:54:00 [employer], Duration: 1 doses or times, Stop date: 04/06/16 5:05:00 [employer] Inactive 04/06/2016 [facility] Sodium Chloride 0.154 MEQ/ML Injectable Solution 1,000 mL, Rate: 100 ml/hr, Infuse over: 10 hr, Route: IV, Dosing Weight 64.091 kg, Total Volume: 1,000, thiamine 500mg total, Start date: 04/05/16 18:15:00 [employer], Duration: 1 doses or times, Stop date: 04/06/16 4:14:00 [employer] Inactive 04/06/2016 [facility] Sodium Chloride 0.154 MEQ/ML Injectable Solution 1,000 mL, Rate: 100 ml/hr, Infuse over: 10 hr, Route: IV, Dosing Weight 64.091 kg, Total Volume: 1,000, Start date: 04/05/16 18:13:00 [employer], Duration: 1 doses or times, Stop date: 04/06/16 4:12:00 [employer] Inactive 04/06/2016 [facility] Sodium Chloride 0.154 MEQ/ML Injectable Solution 1,000 mL, 2,000 ml/hr, Infuse Over: 30 minutes, Route: IV, 1,000, Drug form: INJ, ONCE, Priority: STAT, Dosing Weight 64.091 kg, Start date: 04/05/16 18:12:00 [employer], Duration: 1 doses or times, Stop date: 04/05/16 18:12:00 [employer] Inactive 04/06/2016 [facility] Saline Flush 0.9% Notes: (Same as: BD Posiflush) No Longer Active 04/06/2016 [facility] Morphine 4 mg, Route: IVP, ONC E, Dosing Weight 61.818, kg, Priority: STAT, Start date: 03/02/16 22:39:00 CDT, Stop date: 03/02/16 22:39:00 CDT Inactive 03/03/2016 [facility] Acetaminophen 300 MG / Codeine Phosphate 30 MG Oral Tablet [Tylenol with Codeine #3] 1 tab, PO, Q6H, PRN Pain, X 5 day, # 20 tab, 0 Refill(s) Active 03/03/2016 [facility] Cephalexin 500 MG Oral Capsule [Keflex] 500 mg = 1 cap, PO, QID, X 7 day, # 28 cap, 0 Refill(s) Active 03/03/2016 [facility] Ceftriaxone Notes: (Same As: Deni potter). Use with 100 mL NS and infuse over 30 min MEDICATION WASTE Product Size: 1000 mg Product Wasted: ___ mg Inactive 03/03/2016 [facility] Promethazine 12.5 mg, Route: I VPB, ONCE, Dosing Weight 61.818, kg, Priority: STAT, Start date: 03/02/16 22:01:00 CDT, Stop date: 03/02/16 22:01:00 CDT Inactive 03/03/2016 [facility] Ondansetron 4 mg, Route: IVP, Drug form: INJ, ONCE, Dosing Weight 61.818, kg, Priority: STAT, Start date: 03/02/16 20:54:00 CDT, Stop date: 03/02/16 20:54:00 CDT Inactive 03/03/2016 [facility] Morphine 4 mg, Route: IVP, ONC E, Dosing Weight 61.818, kg, Priority: STAT, Start date: 03/02/16 20:54:00 CDT, Stop date: 03/02/16 20:54:00 CDT Inactive 03/03/2016 [facility] Saline Flush 0.9% Notes: (Same as: BD Posiflush) No Longer Active 03/03/2016 [facility] tramadol hydrochloride 50 MG Oral Tablet 50 mg = 1 tab, PO, BID, X 7 day, # 14 tab, 0 Refill(s) Active 03/21/2015 [facility] Morphine 4 mg, Route: IM, Drug form: INJ, ONCE, Dosing Weight 64.545, kg, Priority: STAT, Start date: 03/20/15 22:11:00, Stop date: 03/20/15 22:11:00 Inactive 03/21/2015 [facility] Ketorolac 4 days MEDICA TION WASTE Product Size: 30 mg Product Wasted: ___ mg No Longer Active 09/27/2014 [facility] Acetaminophen 325 MG / butalbital 50 MG / Caffeine 40 MG Oral Tablet [Esgic] Notes: (tbgmadjqefwzj-uccwjscsxd-givwxle e 325-50-40mg) Do not exceed 4 gm/day of acetaminophen. (Same as: Esgic, Fioricet) No Longer Active 09/27/2014 [facility] Acetaminophen 300 MG / butalbital 50 MG / Caffeine 40 MG Oral Capsule [Fioricet] Notes: (abtnhsfojodxm-lsmdkkyytp-bwbacln e 325-50-40mg) Do not exceed 4 gm/day of acetaminophen. (Same as: Esgic, Fioricet) Inactive 09/26/2014 [facility] Promethazine Notes: (Same as: Phenergan) No Longer Active 09/26/2014 [facility] Promethazine Notes: (Same as: Phenergan) No Longer Active 09/26/2014 [facility] GI cocktail Notes: [place] = antacid with simethicone 22.5 mL - lidocaine viscous 7.5 mL No Longer Active 09/25/2014 [facility] Glucose 50 MG/ML / Sodium Chloride 0.076 9 MEQ/ML Injectable Solution 1,000 mL, Rate: 125 ml/hr, Infuse over: 8 hr, Route: IV, Dosing Weight 65.455 kg, Total Volume: 1,000, Start date: 09/21/14 0:34:00, Stop date: 10/21/14 0:33:00 No Longer Active 09/21/2014 [facility] d50 syringe 12.5 gm, 25 mL, Ro marita: IVP, Drug Form: INJ, Dosing Weight 65.455, kg, PRN, PRN Blood Glucose Results, Start date: 09/21/14 0:17:00, Duration: 30 day, Stop date: 10/21/14 0:16:00 No Longer Active 09/21/2014 [facility] Ondansetron Notes: (Same as: Manoj parnell) MEDICATION WASTE Product Size: 4 mg Product Wasted: ___ mg No Longer Active 09/19/2014 [facility] Phenergan Notes: (Same as: Phe nergan) No Longer Active 09/19/2014 [facility] Oxycodone Hydrochloride 5 MG Oral Tablet Notes: (Same as: Roxicodone) No Longer Active 09/19/2014 [facility] 72 HR Scopolamine 0.0139 MG/HR Transdermal Patch Notes: Change patch every 72 hours (Same as: Transderm-Scop) No Longer Active 09/18/2014 [facility] Nicotine 21 mg, 1 patch, Route : TOP, Drug form: ERFILM, Daily, Dosing Weight 65.455, kg, Start date: 09/17/14 12:00:00, Duration: 30 day, Stop date: 10/17/14 9:00:00 No Longer Active 09/17/2014 [facility] Sodium Chloride 0.154 MEQ/ML Injectable Solution 500 mL, Rate: 25 ml/hr, Infuse over: 20 hr, Route: IV, Dosing Weight 65.455 kg, Total Volume: 500, Start date: 09/16/14 12:22:00, Duration: 1 day, Stop date: 09/17/14 12:21:00 Inactive 09/16/2014 [facility] Protonix Notes: Tablet should not be chewed or crushed. (Same as: Protonix) No Longer Active 09/16/2014 [facility] Amitriptyline Notes: (Same as: Elavil) No Longer Active 09/15/2014 [facility] Dilaudid 1 mg, 1 mL, Route: IV , Drug form: INJ, Q4H, Dosing Weight 65.455, kg, PRN Pain Score 7-10, Start date: 09/15/14 10:53:00, Duration: 30 day, Stop date: 10/15/14 10:52:00 No Longer Active 09/15/2014 [facility] Celexa Notes: (Same As: CeleXA) No Longer Active 09/15/2014 [facility] Hydroxyzine Notes: (Same as: A tarax) Avoid alcohol. No Longer Active 09/15/2014 [facility] Diazepam Notes: (Same as: Sanchez um) No Longer Active 09/14/2014 [facility] Dilaudid 2 mg, 2 mL, Route: IV , Drug form: INJ, Q4H, Dosing Weight 65.455, kg, PRN Pain Score 7-10, Start date: 09/14/14 13:03:00, Stop date: 10/14/14 13:02:00 N o Longer Active 09/14/2014 [facility] Acetaminophen 325 MG / Hydrocodone Faby trate 10 MG Oral Tablet [Reedy 10/325] Notes: Do not exceed 4gm/day of acetamin ophen. (Same as: Reedy 325/10) No Longer Active 09/14/2014 [facility] zolpidem Notes: (Same As: Ambi en) No Longer Active 09/14/2014 [facility] Diphenhydramine Notes: (Same a s: Benadryl) Inactive 09/14/2014 [facility] Diazepam Notes: (Same as: Sanchez nolasco) Inactive 09/14/2014 [facility] Celexa Notes: (Same As: CeleXA) No Longer Active 09/14/2014 [facility] Saline Flush 0.9% Notes: prese rvative free. No Longer Active 09/14/2014 [facility] Sodium Chloride 0.154 MEQ/ML Injectable Solution 1,000 mL, Rate: 60 ml/hr, Infuse over: 16.7 hr, Route: IV, Dosing Weight 60 kg, Total Volume: 1,000, Start date: 09/14/14 2:59:00, Stop date: 10/14/14 2:58:00 No Longer Active 09/14/2014 [facility] Ondansetron Notes: (Same as: Manoj parnell) MEDICATION WASTE Product Size: 4 mg Product Wasted: ___ mg No Longer Active 09/14/2014 [facility] Morphine Notes: (Same as:MORPh ine Sulfate) Inactive 09/14/2014 [facility] Dilaudid 1 mg, 1 mL, Route: IV P, Drug form: INJ, Q6H, Dosing Weight 60, kg, PRN Pain Score 6-10, Priority: STAT, Start date: 09/14/14 2:34:00, Duration: 30 day, Stop date: 10/14/14 2:33:00 Inactive 09/14/2014 [facility] Morphine Notes: (Same as:MORPh ine Sulfate) Inactive 09/14/2014 [facility] Ambien Notes: (Same As: Ambien) Inactive 09/14/2014 [facility] Phenergan Notes: Do not give I V push. (Same as: Phenergan) No Longer Active 09/14/2014 [facility] Zofran Notes: (Same as: Zofran ) MEDICATION WASTE Product Size: 4 mg Product Wasted: ___ mg Inactive 09/14/2014 [facility] pantoprazole Notes: For IV pus h reconstitute with 10 ml 0.9% sodium chloride and push over 2 minutes. (Same as: Protonix) No Longer Active 09/14/2014 [facility] normal saline 0.9% IV 1,000 mL 1,000 mL, Rate: 75 ml/hr, Infuse over: 13.3 hr, Route: IV, Dosing Weight 60 kg, Total Volume: 1,000, Start date: 09/14/14 2:25:00, Duration: 30 day, Stop date: 10/14/14 2:24:00 Inactive 09/14/2014 [facility] Benadryl 12.5 mg, Route: IVP, ONCE, Dosing Weight 60, kg, Priority: STAT, Start date: 09/14/14 2:12:00, Stop date: 09/14/14 2:12:00 Inactive 09/14/2014 [facility] Reglan 10 mg, Route: IVP, Drug form: INJ, ONCE, Dosing Weight 60, kg, Priority: STAT, Start date: 09/14/14 1:31:00, Stop date: 09/14/14 1:31:00 Inactive 09/14/2014 [facility] Acetaminophen 325 MG / Hydrocodone Faby trate 10 MG Oral Tablet [Reedy 10/325] 1-2 tab, PO, Q4-6H, PRN Pain, X 5 day, # 15 tab, 0 Refill(s) No Longer Active 09/14/2014 [facility] Promethazine Hydrochloride 25 MG Rectal Suppository [Phenergan] 25 mg = 1 supp, AZ, Q6H, PRN Nausea & Vo miting, X 3 day, # 9 supp, 0 Refill(s) No Longer Active 09/14/2014 [facility] Promethazine Hydrochloride 25 MG Oral Ta blet [Phenergan] 25 mg = 1 tab, PO, Q6H, PRN Nausea, X 4 day, # 15 tab, 0 Refill(s) No Longer Active 09/14/2014 [facility] Acetaminophen 325 MG / Hydrocodone Faby trate 10 MG Oral Tablet [Reedy 10/325] 1 tab, Route: PO, Drug Form: TAB, Dosing Weight 60, kg, ONCE, STAT, Start date: 09/14/14 0:58:00, Stop date: 09/14/14 0:58:00 Inactive 09/14/2014 [facility] Phenergan Notes: Do not give I V push. (Same as: Phenergan) No Longer Active 09/14/2014 [facility] Dilaudid 2 mg, 2 mL, Route: IV P, Drug form: INJ, ONCE, Dosing Weight 60, kg, Priority: STAT, Start date: 09/13/14 23:58:00, Stop date: 09/13/14 23:58:00 No Longer Active 09/14/2014 [facility] Phenergan 12.5 mg, Route: IVPB , ONCE, Dosing Weight 60, kg, Priority: STAT, Start date: 09/13/14 22:17:00, Stop date: 09/13/14 22:17:00 Inactive 09/14/2014 [facility] Sodium Chloride 0.154 MEQ/ML Injectable Solution 1,000 mL, Infuse Over: 1 hr, Route: IV, ONCE, Priority: STAT, Dosing Weight 60 kg, Start date: 09/13/14 22:17:00, Duration: 1 doses or times, Stop date: 09/13/14 22:17:00 Inactive 09/14/2014 [facility] Saline Flush 0.9% Notes: prese rvative free. No Longer Active 09/14/2014 [facility] Morphine 6 mg, Route: IVP, ONC E, Dosing Weight 60, kg, Priority: STAT, Start date: 09/13/14 22:17:00, Stop date: 09/13/14 22:17:00 Inactive 09/14/2014 [facility] Acetaminophen 325 MG / Hydrocodone Faby trate 5 MG Oral Tablet [Reedy 5/325] 1-2 tab, PO, Q4-6H, Pain, # 12 tab, 0 Re fill(s) Active 02/09/2014 [facility] Acetaminophen 325 MG / Hydrocodone Faby trate 5 MG Oral Tablet [Reedy 5/325] 1 tab, Route: PO, Dosing Weight 66.364, kg, ONCE, Start date: 02/09/14 10:08:00, Stop date: 02/09/14 10:08:00 Inactive 02/09/2014 [facility] Miralax Notes: Dissolve in 8 o z of water or juice. (Same as: Miralax) Inactive 2013 [facility] Promethazine Notes: Do not giv e IV push. (Same as: Phenergan) No Longer Active 12/16/2013 [facility] Depacon Notes: Dilute in at le ast 50ml D5W or NS. Infusion rate = 20 mg/min (Same As: Depacon) Inactive 12/13/2013 [facility] Dextrose 50% Syringe 25 gm, 50 mL, Route: IV, Drug Form: INJ, Dosing Weight 63.636, kg, PRN, PRN Blood Glucose Results, Start date: 12/12/13 12:48:00, Duration: 30 day, Stop date: 01/11/14 12:47:00 No Longer Active 12/12/2013 [facility] gabapentin Notes: (Same as: Ne urontin) No Longer Active 12/12/2013 [facility] Protonix Notes: Tablet should not be chewed or crushed. (Same as: Protonix) No Longer Active 12/11/2013 [facility] Dilaudid 0.8 mg, 0.8 mL, Route : IV, Drug form: INJ, Q6H, Dosing Weight 63.636, kg, PRN Severe Pain, Start date: 12/11/13 11:22:00, Stop date: 01/10/14 11:21:00 No Longer Active 12/11/2013 [facility] Ketorolac 4 days No Longer Active 12/11/2013 [facility] Phenergan Notes: Do not give I V push. (Same as: Phenergan) Inactive 12/11/2013 [facility] Dexamethasone 10 mg, 2.5 mL, R oute: IVPB, Drug form: INJ, ONCE, Dosing Weight 63.636, kg, Start date: 12/11/13 10:08:00, Stop date: 12/11/13 10:08:00 Inactive 12/11/2013 [facility] Miralax Notes: Dissolve in 8 o z of water or juice. (Same as: Miralax) No Longer Active 12/11/2013 [facility] Multiple Vitamins with Minerals oral tablet Notes: (Same as:Thera-M, Theragran-M) Give with food. No Longer Active 12/11/2013 [facility] Celexa Notes: (Same As: CeleXA) No Longer Active 12/11/2013 [facility] Diazepam Notes: (Same as: Sanchez um) No Longer Active 12/11/2013 [facility] zolpidem 10 mg, Route: PO, David g form: TAB, Bedtime, Dosing Weight 63.636, kg, PRN as needed for sleep, Start date: 12/11/13 5:46:00, Duration: 30 day, Stop date: 01/10/14 5:45:00 Inactive 12/11/2013 [facility] Hyoscyamine Notes: (Same as: L evsin) Take 30 min before meal No Longer Active 12/11/2013 [facility] Chlordiazepoxide Hydrochloride 25 MG Oral Capsule 25 mg, 1 cap, Route: PO, Drug form: CAP, QID, Dosing Weight 63.636, kg, PRN as needed for anxiety, Start date: 12/11/13 5:45:00, Duration: 30 day, Stop date: 01/10/14 5:44:00 No Longer Active 12/11/2013 [facility] Ambien Notes: (Same As: Ambien) No Longer Active 12/11/2013 [facility] Protonix Notes: For IV push re constitute with 10 ml 0.9% sodium chloride and push over 2 minutes. (Same as: Protonix) No Longer Active 12/10/2013 [facility] Promethazine Notes: Do not giv e IV push. (Same as: Phenergan) No Longer Active 12/10/2013 [facility] Dilaudid 0.5 mg, 0.5 mL, Route : IV, Drug form: INJ, Q3H, Dosing Weight 64.545, kg, PRN Pain, Start date: 12/10/13 11:33:00, Duration: 30 day, Stop date: 01/09/14 11:32:00 No Longer Active 12/10/2013 [facility] D5W 1/2NS + KCL 20mEq/L 1000ml (Premix) 1,000 mL Notes: PREMIX IV - Do Not Alter No Longer Active 12/10/2013 [facility] Saline Flush 0.9% Notes: Same as: BD Posiflush Sterile No Longer Active 12/10/2013 [facility] Docusate Notes: (Same as: Cola ce) (Do Not Crush) No Longer Active 12/10/2013 [facility] Acetaminophen Notes: Do not ex ceed 4 gm/day. (Same as: Tylenol) No Longer Active 12/10/2013 [facility] Haldol Notes: (Same as: Haldol) Inactive 12/07/2013 [facility] Lorazepam Notes: (Same as: Ati van) Inactive 12/07/2013 [facility] Valproic Acid 100 MG/ML Injectable Solution Notes: Dilute in at least 50ml D5W or NS. Infusion rate = 20 mg/min (Same As: Depacon) No Longer Active 12/07/2013 [facility] Metoclopramide Notes: (Same as : Reglan) No Longer Active 12/07/2013 [facility] Diphenhydramine Notes: (Same a s: Benadryl) No Longer Active 12/07/2013 [facility] Ketorolac 4 days No Longer Active 12/07/2013 [facility] Sodium Chloride 0.154 MEQ/ML Injectable Solution 1,000 mL, 1,000 ml/hr, Infuse Over: 1 hr, Route: IV, 1,000, Drug form: INJ, ONCE, Priority: STAT, Dosing Weight 64.545 kg, Start date: 12/06/13 23:43:00, Duration: 1 doses or times, Stop date: 12/06/13 23:43:00 No Longer Active 12/07/2013 [facility] pantoprazole Notes: Tablet lolis uld not be chewed or crushed. (Same as: Protonix) Inactive 09/24/2013 [facility] promethazine 25 mg rectal suppository 25 mg = 1 supp, [place], Q4H, Nausea & Vomiting, # 10 supp, 0 Refill(s) Active 09/24/2013 [facility] Acetaminophen 325 MG / Hydrocodone Faby trate 10 MG Oral Tablet [Reedy 10/325] 1 tab, PO, Q4H, for pain, # 50 tab, 0 Re fill(s) Active 09/24/2013 [facility] Zantac 300 300 mg, Route: PO, Drug form: TAB, Bedtime, Dosing Weight 65.455, kg, Start date: 09/23/13 21:00:00, Duration: 30 day, Stop date: 10/22/13 21:00:00 Inactive 09/24/2013 [facility] Pepcid Notes: (Same as: Pepcid) No Longer Active 09/24/2013 [facility] Ativan Notes: (Same as: Ativan) No Longer Active 09/24/2013 [facility] Phenergan Notes: (Same as: Phe nergan) No Longer Active 09/23/2013 [facility] Acetaminophen 325 MG / Hydrocodone Faby trate 5 MG Oral Tablet [Reedy 5/325] Notes: (Same as: Reedy 325/5) Do not ex ceed 4gm/day of acetaminophen. No Longer Activ e 09/23/2013 [facility] magnesium citrate Notes: (Same as: Citrate of Magnesia) Inactive 09/21/2013 [facility] pantoprazole Notes: Tablet lolis uld not be chewed or crushed. (Same as: Protonix) N o Longer Active 09/21/2013 [facility] Ativan Notes: (Same as: Ativan) No Longer Active 09/21/2013 [facility] Dextrose 50% Syringe 25 gm, 50 mL, Route: IV, Drug Form: INJ, Dosing Weight 65.455, kg, PRN, PRN Blood Glucose Results, Start date: 09/20/13 13:48:00, Duration: 30 day, Stop date: 10/20/13 13:47:00, blood sugar <50 No Longer Active 09/20/2013 [facility] Phenergan Notes: Do not give I V push. (Same as: Phenergan) No Longer Active 09/20/2013 [facility] Miralax Notes: Dissolve in 8 o z of water or juice. (Same as: Miralax) No Longer Active 09/19/2013 [facility] Phenergan Notes: (Same as: Phe nergan) No Longer Active 09/19/2013 [facility] Protonix Notes: For IV push re constitute with 10 ml 0.9% sodium chloride and push over 2 minutes. (Same as: Protonix) No Longer Active 09/19/2013 [facility] Celexa Notes: (Same As: CeleXA) No Longer Active 09/19/2013 [facility] Phenergan Notes: Do not give I V push. (Same as: Phenergan) No Longer Active 09/19/2013 [facility] Phenergan Notes: Do not give I V push. (Same as: Phenergan) No Longer Active 09/19/2013 [facility] Chlordiazepoxide Hydrochloride 25 MG Oral Capsule 25 mg, 1 cap, Route: PO, Drug form: CAP, QID, Dosing Weight 65.455, kg, Start date: 09/18/13 21:00:00, Duration: 30 day, Stop date: 10/18/13 17:00:00 No Longer Active 09/19/2013 [facility] Ambien Notes: (Same As: Ambien) No Longer Active 09/19/2013 [facility] Hydroxyzine Notes: (Same as: V istaril) No Longer Active 09/19/2013 [facility] Temazepam Notes: (Same As: Res toril) Inactive 09/18/2013 [facility] Dilaudid 1 mg, 1 mL, Route: IV , Drug form: INJ, Q3H, Dosing Weight 69.545, kg, PRN Pain Score 7-10, Start date: 09/18/13 16:45:00, Duration: 30 day, Stop date: 10/18/13 16:44:00 No Longer Active 09/18/2013 [facility] Acetaminophen Notes: Do not ex ceed 4 gm/day. (Same as: Tylenol) No Longer Active 09/18/2013 [facility] Docusate Notes: (Same as: Cola ce) (Do Not Crush) No Longer Active 09/18/2013 [facility] Saline Flush 0.9% Notes: (Same as: BD Posiflush) No Longer Active 09/18/2013 [facility] D5W 1/2NS + KCL 20mEq/L 1000ml (Premix) 1,000 mL Notes: PREMIX IV - Do Not Alter No Longer Active 09/18/2013 [facility] Acetaminophen 325 MG / Hydrocodone Faby trate 10 MG Oral Tablet [Reedy 10/325] 1 tab, PO, Q4H, for pain, # 50 tab, 0 Re fill(s) Active 09/13/2013 [facility] Acetaminophen 65 MG/ML / Oxycodone [place] chloride 1 MG/ML Oral Solution 5 ml, PO, Q4H, for pain, # 480 mL, 0 Ref ill(s) Active 09/13/2013 [facility] Acetaminophen 65 MG/ML / Oxycodone [place] chloride 1 MG/ML Oral Solution 5 ml, PO, Q4H, for pain, # 480 mL, 0 Ref ill(s) Active 09/13/2013 [facility] Ciprofloxacin 500 MG Oral Tablet [Cipro] 500 mg = 1 tab, PO, Q12H, # 28 tab, 0 Refill(s) Active 09/13/2013 [facility] Acetaminophen 325 MG / Hydrocodone Faby trate 5 MG Oral Tablet [Reedy 5/325] 1 tab, Route: PO, Dosing Weight 69.545, kg, ONCE, Start date: 09/13/13 2:44:00, Stop date: 09/13/13 2:44:00 Inactive 09/13/2013 [facility] Acetaminophen 33.3 MG/ML / Hydrocodone B itartrate 0.5 MG/ML Oral Solution 15 ml, PO, Q4H, for pain, # 60 mL, 0 Ref ill(s) Active 09/13/2013 [facility] Ondansetron 8 MG Disintegrating Tablet [Zofran] Special Instructions: Dissolve tab under tongue Active 09/13/2013 [facility] promethazine 50 mg rectal suppository 50 mg = 1 supp, [place], Q6H, Nausea & Vomiting, # 12 supp, 0 Refill(s) Active 09/13/2013 [facility] Ciprofloxacin Notes: Do not re frigerate Inactive 09/13/2013 [facility] Sodium Chloride 0.154 MEQ/ML Injectable Solution 1,000 mL, 1,000 ml/hr, Infuse Over: 1 hr, Route: IV, 1,000, Drug form: INJ, ONCE, Priority: STAT, Dosing Weight 69.545 kg, Start date: 09/12/13 23:34:00, Duration: 1 doses or times, Stop date: 09/12/13 23:34:00 Inactive 09/13/2013 [facility] d50 syringe Special Instructio ns: 25 ml = 12.5 gm No Longer Active 09/13/2013 [facility] Dilaudid 0.5 mg, 0.5 mL, Route : IV, Drug form: INJ, Q3H, Dosing Weight 69.545, kg, Start date: 09/12/13 23:00:00, Duration: 30 day, Stop date: 10/12/13 20:00:00 No Longer Active 09/13/2013 [facility] Promethazine Notes: Do not giv e IV push. (Same as: Phenergan) Inactive 09/13/2013 [facility] Ondansetron Notes: (Same as: Manoj parnell) Inactive 09/13/2013 [facility] Sodium Chloride 0.154 MEQ/ML Injectable Solution 1,000 mL, 1,000 ml/hr, Infuse Over: 1 hr, Route: IV, 1,000, Drug form: INJ, ONCE, Priority: STAT, Dosing Weight 69.545 kg, Start date: 09/12/13 20:50:00, Duration: 1 doses or times, Stop date: 09/12/13 20:50:00 Inactive 09/13/2013 [facility] Famotidine Notes: (Same as: Isaías pcid) Can be dilute in 5- 10cc NS IVP: Slow IV push over at least 2 minutes. Inactive 09/13/2013 [facility] Acetaminophen 325 MG / Hydrocodone Faby trate 10 MG Oral Tablet 1 tab, PO, Q4H, Pain Score 4-6, # 10 tab , 0 Refill(s) Active 09/10/2013 [facility] promethazine 25 mg rectal suppository 25 mg = 1 supp, AZ, Q4H, Nausea & Vomiting, # 10 supp, 0 Refill(s) Active 09/10/2013 [facility] Ondansetron 0.8 MG/ML Oral Solution [Zofran] Notes: (Same as: Zofran ODT) No Longe r Active 09/09/2013 [facility] Phenergan Notes: (Same as: Phe nergan) No Longer Active 09/09/2013 [facility] Thiamine Notes: (Same As: Danica min B1) No Longer Active 09/09/2013 [facility] Metoclopramide 10 MG Oral Tablet [Reglan] Notes: (Same as: Reglan) Take 30 min before meals No Longer Active 09/08/2013 [facility] promethazine 12.5 mg rectal suppository 12.5 mg = 1 supp, AZ, Q4H, Nausea & Vomiting, # 12 can, 0 Refill(s) Active 09/07/2013 [facility] Phenergan Notes: (Same as: Phe nergan) No Longer Active 09/07/2013 [facility] Protonix Notes: Tablet should not be chewed or crushed. (Same as: Protonix) No Longer Active 09/06/2013 [facility] Actigall Notes: (Same As: Acti gall) No Longer Active 09/06/2013 [facility] hydrocortisone acetate 25 MG Rectal Supp ository [Anusol HC] Notes: (Same as: Anusol-HC, Hemorrhoidal HC) No Longer Active 09/05/2013 [facility] Metronidazole 500 MG Oral Tablet Notes: (Same as: Flagyl) Take with food/ avoid alcohol No Longer Active 09/05/2013 [facility] Sodium Chloride 0.154 MEQ/ML Injectable Solution 1,000 mL, Rate: 25 ml/hr, Infuse over: 40 hr, Route: IV, Dosing Weight 67.273 kg, Total Volume: 1,000, Start date: 09/05/13 12:09:00, Duration: 1 day, Stop date: 09/06/13 12:08:00 Inactive 09/05/2013 [facility] D5NS 1,000 mL 1,000 mL, Rate: 125 ml/hr, Infuse over: 8 hr, Route: IV, Dosing Weight 67.273 kg, Total Volume: 1,000, Start date: 09/04/13 20:05:00, Duration: 30 day, Stop date: 10/04/13 20:04:00 No Longer Active 09/05/2013 [facility] Golytely Notes: (polyethylene glycol electrolyte solution 4 Liter bottle) (Same as: Golytely, Colyte) Inactive 09/04/2013 [facility] Miralax Notes: Dissolve in 8 o z of water or juice. (Same as: Miralax) No Longer Active 09/03/2013 [facility] Docusate Sodium 100 MG Oral Capsule 100 mg, 1 cap, Route: PO, Drug form: CAP, BID, Dosing Weight 67.273, kg, PRN Constipation, Start date: 09/03/13 12:48:00, Duration: 30 day, Stop date: 10/03/13 12:47:00 Inactive 09/03/2013 [facility] Protonix Notes: For IV push re constitute with 10 ml 0.9% sodium chloride and push over 2 minutes. (Same as: Protonix) No Longer Active 09/03/2013 [facility] Hydroxyzine Notes: (Same as: A tarax) Avoid alcohol. No Longer Active 09/03/2013 [facility] Ambien Notes: (Same As: Ambien) No Longer Active 09/03/2013 [facility] Benadryl Notes: (Same as: Martelle dryl) No Longer Active 09/02/2013 [facility] Hyoscyamine Notes: (Same as: L evsin) Take 30 min before meal No Longer Active 09/02/2013 [facility] Dilaudid 1 mg, 1 mL, Route: IV , Drug form: INJ, Q4H, Dosing Weight 67.273, kg, PRN Pain Score 7-10, Start date: 09/02/13 17:35:00, Duration: 30 day, Stop date: 10/02/13 17:34:00 No Longer Active 09/02/2013 [facility] Diazepam Notes: (Same as: Sanchez um) No Longer Active 09/02/2013 [facility] Potassium Chloride 20 MEQ Extended Release Tablet Notes: (Same as: K-Dur 20) "Do Not Crush" With food and full glass of water No Longer Active 09/02/2013 [facility] Ascorbic Acid / Beta Carotene / cuprous oxide / Lutein / sodium selenate / Vitamin E / Zinc Oxide Notes: (Same as:Thera-M, Theragran-M) Give with food. No Longer Active 09/02/2013 [facility] Celexa Notes: (Same As: CeleXA) No Longer Active 09/02/2013 [facility] promethazine 25 mg oral tablet 25 mg = 1 tab, PO, Q6H, Nausea & Vomiting, # 15 tab, 0 Refill(s) No Longer Active 09/02/2013 [facility] zolpidem 10 mg oral tablet 10 mg = 1 tab, PO, Bedtime, for sleep, 0 Refill(s) Active 09/02/2013 [facility] Miralax 17 gm, PO, Daily, 0 Re fill(s) Active 09/02/2013 [facility] hyoscyamine 0.125 mg sublingual tablet 0.125 mg = 1 tab, SL, Q6H, GI Upset, 0 Refill(s) Active 09/02/2013 [facility] Phenergan Notes: Do not give I V push. (Same as: Phenergan) No Longer Active 09/02/2013 [facility] Ondansetron Notes: (Same as: Manoj parnell) Inactive 09/02/2013 [facility] Morphine Notes: (Same as:MORPh ine Sulfate) Inactive 09/02/2013 [facility] Docusate Notes: (Same as: Cola ce) (Do Not Crush) No Longer Active 09/02/2013 [facility] Saline Flush 0.9% Notes: (Same as: BD Posiflush) No Longer Active 09/02/2013 [facility] Sodium Chloride 0.0769 MEQ/ML Injectable Solution 1,000 mL, Rate: 125 ml/hr, Infuse over: 8 hr, Route: IV, Dosing Weight 67.273 kg, Total Volume: 1,000, Start date: 09/02/13 8:21:00, Duration: 30 day, Stop date: 10/02/13 8:20:00 Inactive 09/02/2013 [facility] Acetaminophen Notes: Max aceta minophen = 4000mg/day (4 gm/day). (Same as: Tylenol) N o Longer Active 09/02/2013 [facility] Acetaminophen 325 MG / Hydrocodone Faby trate 10 MG Oral Tablet Notes: Do not exceed 4gm/day of acetamin ophen. (Same as: Reedy 325/10) No Longer Active 09/02/2013 [facility] Acetaminophen 325 MG / Hydrocodone Faby trate 5 MG Oral Tablet Notes: (Same as: Reedy 325/5) Do not ex ceed 4gm/day of acetaminophen. No Longer Active 09/02/2013 [facility] Chlordiazepoxide Hydrochloride 25 MG Oral Capsule 25 mg, 1 cap, Route: PO, Drug form: CAP, QID, Dosing Weight 67.273, kg, PRN as needed for anxiety, Start date: 09/02/13 7:30:00, Duration: 30 day, Stop date: 10/02/13 7:29:00 No Longer Active 09/02/2013 [facility] normal saline 0.9% IV 1,000 mL 1,000 mL, Rate: 125 ml/hr, Infuse over: 8 hr, Route: IV, Dosing Weight 67.273 kg, Total Volume: 1,000, Start date: 09/02/13 7:29:00, Duration: 30 day, Stop date: 10/02/13 7:28:00 No Longer Active 09/02/2013 [facility] Zofran 4 mg, Route: IVP, Drug form: INJ, ONCE, Dosing Weight 67.273, kg, Priority: STAT, Start date: 09/02/13 4:03:00, Stop date: 09/02/13 4:03:00 Inactive 09/02/2013 [facility] Promethazine Hydrochloride 25 MG Oral Ta blet [Phenergan] 25 mg = 1 tab, PO, Q4H, Nausea, # 15 tab, 0 Refill(s) Inactive 09/02/2013 [facility] Dilaudid 1 mg, Route: IV, ONCE , Dosing Weight 67.273, kg, Start date: 09/02/13 2:49:00, Stop date: 09/02/13 2:49:00 Inactive 09/02/2013 [facility] Phenergan 12.5 mg, Route: IVPB , ONCE, Dosing Weight 67.273, kg, Priority: STAT, Start date: 09/02/13 2:49:00, Stop date: 09/02/13 2:49:00 Inactive 09/02/2013 [facility] Hydromorphone 1 mg, Route: IVP , ONCE, Dosing Weight 67.273, kg, Priority: STAT, Start date: 09/02/13 0:51:00, Stop date: 09/02/13 0:51:00 Inactive 09/02/2013 [facility] Phenergan Notes: Do not give I V push. (Same as: Phenergan) No Longer Active 09/02/2013 [facility] Sodium Chloride 0.154 MEQ/ML Injectable Solution 1,000 mL, 1000 ml/hr, Infuse Over: 1 hr, Route: IV, 1,000, Drug form: INJ, ONCE, Priority: STAT, Dosing Weight 67.273 kg, Start date: 09/01/13 23:58:00, Duration: 1 doses or times, Stop date: 09/01/13 23:58:00 No Longer Active 09/02/2013 [facility] Saline Flush 0.9% Notes: (Same as: BD Posiflush) No Longer Active 09/02/2013 [facility] pantoprazole 40 mg oral enteric coated tablet 40 mg = 1 tab, PO, Daily, # 30 tab, 0 Refill(s) On Hold 09/01/2013 [facility] promethazine 6.25 mg/5 mL oral syrup 18.75 mg = 15 mL, PO, QID, as needed for nausea/vomiting, # 500 mL, 0 Refill(s) On Hold 09/01/2013 [facility] Ondansetron Notes: (Same as: Manoj parnell ODT) Inactive 09/01/2013 [facility] Acetaminophen 325 MG / Hydrocodone Faby trate 10 MG Oral Tablet Notes: Do not exceed 4gm/day of acetamin ophen. (Same as: Reedy 325/10) Inactive 09/01/2013 [facility] Solu-Medrol Notes: (Same as:So kristopher-MEDROL, A-Methapred) Inactive 09/01/2013 [facility] Diphenhydramine Notes: (Same a s: Benadryl) Inactive 09/01/2013 [facility] Metoclopramide Notes: (Same as : Reglan) Inactive 09/01/2013 [facility] Ondansetron Notes: (Same as: Z ofran) Inactive 09/01/2013 [facility] Hydromorphone 0.5 mg, 0.5 mL, Route: IVP, Drug form: INJ, ONCE, Dosing Weight 63.636, kg, Priority: STAT, Start date: 09/01/13 0:43:00, Stop date: 09/01/13 0:43:00 Inactive 09/01/2013 [facility] Sodium Chloride 0.154 MEQ/ML Injectable Solution 1,000 mL, 1,000 ml/hr, Infuse Over: 1 hr, Route: IV, 1,000, Drug form: INJ, ONCE, Priority: STAT, Dosing Weight 63.636 kg, Start date: 09/01/13 0:43:00, Duration: 1 doses or times, Stop date: 09/01/13 0:43:00 Inactive 09/01/2013 [facility] albuterol 90 mcg/inh inhalation aerosol 2 puff, INHALATION, QID, wheezing, # 1 can, 0 Refill(s) Active Terminella 06/10/2013 [facility] DuoNeb inhalation solution 3 m l, INHALATION, QID, Wheezing, # 60 ea, 0 Refill(s) Active Terminella 06/10/2013 [facility] docusate sodium 100 mg oral capsule 100 mg = 1 cap, PO, Daily, as needed for constipation, # 100 cap, 3 Refill(s) Active Jim 06/10/2013 [facility] polyethylene glycol 3350 oral powder for reconstitutio n 17 gm, PO, BID, # 527 gm, 1 Refill(s) Active Vikki paneni 06/10/2013 [facility] predniSONE 40 mg, 2 tab, Route : PO, Drug form: TAB, Daily, Dosing Weight 66.364, kg, Start date: 06/10/13 9:00:00, Duration: 30 day, Stop date: 07/09/13 9:00:00Take with food. Inactive Ra him 06/10/2013 [facility] Nebulizer 1 ea, MISC, ONCALL, # 1 ea, 0 Refill(s) Active [facility] 06/10/2013 [facility] zolpidem 10 mg oral tablet 10 mg = 1 tab, PO, Bedtime, # 7 tab, 0 Refill(s) Active [facility] 06/10/2013 [facility] predniSONE 20 mg oral tablet 4 0 mg = 2 tab, PO, Daily, # 10 tab, 0 Refill(s) Active [facility] 06/10/2013 [facility] levofloxacin 750 mg oral tablet 750 mg = 1 tab, PO, Daily, # 5 tab, 0 Refill(s) Active [facility] 06/10/2013 [facility] Promethazine DM oral syrup 5 m L, PO, Q6H, for cough, # 30 mL, 0 Refill(s) Active [facility] 06/10/2013 [facility] Bentyl 10 mg, 1 cap, Route: PO , Drug form: CAP, QID, Dosing Weight 66.364, kg, Start date: 06/09/13 21:00:00, Duration: 30 day, Stop date: 07/09/13 17:00:00(Same as: Bentyl) No Longer Active Jim 06/10/2013 [facility] Levaquin 500 mg, 2 tab, Route: PO, Drug form: TAB, Daily, Dosing Weight 66.364, kg, Start date: 06/09/13 21:00:00, Duration: 30 day, Stop date: 07/08/13 21:00:00Do not give w/antacids, dairy pdt & minerals Take 1 hr before or 2 hr after dairy pdt (Same as:Levaquin) No Longer Active [facility] 06/10/2013 [facility] MiraLax 17 gm, 1 pkt, Route: P O, Drug form: PWDR, BID, Dosing Weight 66.364, kg, Start date: 06/09/13 9:00:00, Duration: 30 day, Stop date: 07/08/13 17:00:00Dissolve in 8 oz of water or juice. (Same as: Miralax) No Longer Active Jim 06/09/2013 [facility] Colace 100 mg oral capsule 100 mg, 1 cap, Route: PO, Drug form: CAP, Bedtime, Dosing Weight 66.364, kg, Start date: 06/08/13 21:00:00, Duration: 30 day, Stop date: 07/07/13 21:00:00(Same as: Colace) (Do Not Crush) No Longer Active Jim 06/09/2013 [facility] Dilaudid 1 mg, 1 mL, Route: IV , Drug form: INJ, Q6H, Dosing Weight 66.364, kg, PRN Pain Score 6-10, Start date: 06/08/13 10:35:00, Duration: 30 day, Stop date: 07/08/13 10:34:00 No Longer Active Raalm 06/08/2013 [facility] hydromorphone 2 mg, 2 mL, Rout e: IVP, Drug form: INJ, ONCE, Dosing Weight 66.364, kg, Priority: STAT, Start date: 06/08/13 0:54:00, Stop date: 06/08/13 0:54:00 Inactive [facility] 06/08/2013 [facility] Flonase 0.05 mg/inh nasal spray 2 inhalation, Route: Each Affected Nostril, Drug Form: SPRY, Dosing Weight 66.364, kg, Daily, Start date: 06/07/13 9:00:00, Duration: 30 day, Stop date: 07/06/13 9:00:00(Same as: Flonase) No Longer Active Romo 06/07/2013 [facility] CeleXA 40 mg, 2 tab, Route: PO , Drug form: TAB, QAM, Dosing Weight 66.364, kg, Start date: 06/06/13 9:00:00, Duration: 30 day, Stop date: 07/05/13 9:00:00(Same As: CeleXA) No Longer Active Terminella 06/06/2013 [facility] Ambien 10 mg, 1 tab, Route: PO , Drug form: TAB, ONCE, Start date: 06/06/13 0:35:00, Stop date: 06/06/13 0:35:00(Same As: Ambien) In[facility] Fioricet oral tablet 1 tab, Ro marita: PO, Drug Form: TAB, Dosing Weight 66.364, kg, Q4H, PRN Headache, Start date: 06/05/13 21:06:00, Duration: 30 day, Stop date: 07/05/13 21:05:00(nzmcnalwnsixn-mxhdownxfr-tznftasc 325-50-40mg) Do not exceed 4 gm/day of acetaminophen. (Same as: Esgic, Fioricet) No Longer Active Rahim 06/06/2013 [facility] zolpidem 10 mg, 1 tab, Route: PO, Drug form: TAB, Bedtime, Dosing Weight 66.364, kg, Start date: 06/05/13 21:00:00, Duration: 30 day, Stop date: 07/04/13 21:00:00(Same As: Ambien) No Longer Active [facility] 06/06/2013 [facility] hydrOXYzine 25 mg, 1 tab, Rout e: PO, Drug form: TAB, Bedtime, Dosing Weight 66.364, kg, Start date: 06/05/13 21:00:00, Duration: 30 day, Stop date: 07/04/13 21:00:00(Same as: Atarax) Avoid alcohol. No Longer Active Terminella 06/06/2013 [facility] Tamiflu 75 mg, 1 cap, Route: P O, Drug form: CAP, [id number], Dosing Weight 66.364, kg, Start date: 06/05/13 21:00:00, Duration: 10 doses or times, Stop date: 06/10/13 9:00:00Take with food. Same as: Tamiflu) No Longer Active Termin[facility] 06/06/2013 [facility] chlordiazePOXIDE 25 mg oral capsule 25 mg, 1 cap, Route: PO, Drug form: CAP, QID, Dosing Weight 66.364, kg, PRN Anxiety, Start date: 06/05/13 19:45:00, Duration: 30 day, Stop date: 07/05/13 19:44:00 No Longer Active Terminella 06/06/2013 [facility] Solu-MEDROL 20 mg, 0.5 mL, Rou te: IVP, Drug form: INJ, [id number], Dosing Weight 67.727, kg, Start date: 06/05/13 18:00:00, Stop date: 07/05/13 6:00:00(Same as:Solu-MEDROL, A-Methapred) No Longer Active [facility] 06/06/2013 [facility] albuterol 1.25 mg, 3 mL, Route : NEB, Drug form: SOLN, PRN, PRN Respiratory Protocol, Start date: 06/05/13 16:04:00, Duration: 30 day, Stop date: 07/05/13 16:03:00SEE RT DOCUMENTATION (Same as: Proventil) No Longer Active [facility] 06/05 [facility] [facility] levofloxacin 750 mg oral tablet 750 mg = 1 tab, PO, Daily, # 10 tab, 0 Refill(s) N o Longer Active [facility] 06/05/2013 [facility] predniSONE 5 mg oral tablet 5 mg = 1 tab, PO, TID, # 21 tab, 0 Refill(s) No Longer Active 06/05/2013 [facility] chlordiazePOXIDE 25 mg oral capsule 25 mg = 1 cap, PO, QID, Anxiety, # 60 cap, 0 Refill(s) Active [facility] 06/05/2013 [facility] Promethazine DM oral syrup 5 m l, PO, Q6H, for cough, # 120 ml, 0 Refill(s) No Longer Active [facility] 06/05/2013 [facility] acetaminophen 650 mg, 2 tab, R oute: PO, Drug form: TAB, Q4H, Dosing Weight 67.727, kg, PRN Pain 1-3/Temp > 100.4 F, Start date: 06/05/13 14:49:00, Duration: 30 day, Stop date: 07/05/13 14:48:00Do not exceed 4 gm/day. (Same as: Tylenol) No Longer Active [facility] 06/05/2013 [facility] D5W 1/2NS + KCL 20mEq/L 1000ml (Premix) 1000 mL 1,000 mL, Rate: 100 ml/hr, Infuse over: 10 hr, Route: IV, Dosing Weight 67.727 kg, Total Volume: 1,000, Start date: 06/05/13 14:49:00, Duration: 30 day, Stop date: 07/05/13 14:48:00 Inactive [facility] 06/05/2013 [facility] docusate 100 mg, 1 cap, Route: PO, Drug form: CAP, BID, Dosing Weight 67.727, kg, PRN as needed for constipation, Start date: 06/05/13 14:49:00, Duration: 30 day, Stop date: 07/05/13 14:48:00(Same as: Colace) (Do Not Crush) No Longer Active [facility] 06/05/2013 [facility] Saline Flush 0.9% 5 ml, Route: IVP, Drug Form: INJ, Dosing Weight 67.727, kg, PRN, PRN Line Flush, Start date: 06/05/13 14:49:00, Duration: 30 day, Stop date: 07/05/13 14:48:00Same as: BD Posiflush Sterile No Longer Active [facility] 06/05 [facility] Restoril 30 mg, 2 cap, Route: PO, Drug form: CAP, Bedtime, Dosing Weight 67.727, kg, PRN Sleep, Start date: 06/05/13 12:03:00, Duration: 30 day, Stop date: 07/05/13 12:02:00(Same As: Restoril) No Longer Active [facility] 06/05/2013 [facility] normal saline 0.9% IV 1,000 mL 1,000 mL, Rate: 125 ml/hr, Infuse over: 8 hr, Route: IV, Dosing Weight 67.727 kg, Total Volume: 1,000, Start date: 06/05/13 12:02:00, Duration: 30 day, Stop date: 07/05/13 12:01:00 No Longer Active [facility] 06/05/2013 [facility] Robitussin-AC oral syrup 5 ml, Route: PO, Drug Form: LIQ, Dosing Weight 67.727, kg, Q4H, PRN Cough/Congestion, Start date: 06/05/13 12:02:00, Duration: 30 day, Stop date: 07/05/13 12:01:00(Same As: Robitussin AC) No Longer Active [facility] 06/05 [facility] Levaquin 500 mg, 100 mL, Route : IVPB, Drug form: INJ, [id number], Dosing Weight 67.727, kg, Start date: 06/05/13 12:00:00, Duration: 30 day, Stop date: 07/04/13 20:00:00(Same as:Levaquin) No Longer Active [facility] 06/05/2013 [facility] Xopenex 0.63 mg, Route: NEB, P RN, Dosing Weight 67.727, kg, PRN Respiratory Protocol, Start date: 06/05/13 11:57:00, Duration: 30 day, Stop date: 07/05/13 11:56:00 Inactive [facility] 06/05/2013 [facility] prochlorperazine 10 mg oral tablet 10 mg, 1 tab, PO, BID, PRN, 10 tab, Headache, Substitution Allowed, TAB PO Active Rice 02/12/2013 [facility] NS (Bolus) IV 500 mL 500 mL, R ate: 500 ml/hr, Infuse over: 1 hr, Route: IV, Dosing Weight 67.727 kg, Total Volume: 500, Priority: STAT, Start date: 02/12/13 3:55:00, Duration: 1 doses or times, Stop date: 02/12/13 4:54:00, Bolus DoseBolus Dose IV No Longer Active [facility] 02/12/2013 [facility] Benadryl 25 mg, Route: IVP, ON CE, Dosing Weight 67.727, kg, Priority: STAT, Start date: 02/12/13 3:43:00, Stop date: 02/12/13 3:43:00 IVP No Longer Active [facility] 2012 [facility] Reglan 10 mg, Route: IVP, Drug form: INJ, ONCE, Dosing Weight 67.727, kg, Priority: STAT, Start date: 02/12/13 3:43:00, Stop date: 02/12/13 3:43:00 IVP No Longer Active Alloy 02/12/2013 [facility] Dilaudid 1 mg, Route: IV, ONCE , Dosing Weight 67.727, kg, Start date: 02/12/13 0:43:00, Stop date: 02/12/13 0:43:00 IV No Longer Active Alloy 02/12/2013 [facility] GI cocktail 30 mL, Route: PO, Dosing Weight 67.727, kg, ONCE, STAT, Start date: 02/12/13 0:40:00, Stop date: 02/12/13 0:40:00 PO No Longer Active Alloy 2012 [facility] Dilaudid 1 mg, Route: IV, ONCE , Dosing Weight 67.727, kg, Start date: 02/11/13 23:52:00, Stop date: 02/11/13 23:52:00 IV No Longer Active Alloy 02/12/2013 [facility] morphine Sulfate 4 mg, Route: IVP, Drug form: INJ, ONCE, Dosing Weight 67.727, kg, Priority: STAT, Start date: 02/11/13 22:12:00, Stop date: 02/11/13 22:12:00 IVP No Longer Active Alloy 02/12/2013 [facility] ondansetron 4 mg, Route: IVP, Drug form: INJ, ONCE, Dosing Weight 67.727, kg, Priority: STAT, Start date: 02/11/13 22:12:00, Stop date: 02/11/13 22:12:00 IVP No Longer Active Alloy 02/12/2013 [facility] Lactated Ringers Injection IV 1,000 mL 1,000 mL, Rate: 1,000 ml/hr, Infuse over: 1 hr, Route: IV, Dosing Weight 67.727 kg, Total Volume: 1,000, Bolus infusion, Priority: STAT, Start date: 02/11/13 22:12:00, Duration: 1 doses or times, Stop date: 02/11/13 23:11:00 IV No Longer Active [facility] 02/12/2013 [facility] Cipro 750 mg oral tablet 750 m g, 1 tab, PO, Q12H, 6 tab, Substitution Allowed PO Active [facility] 09/28/2012 [facility] Dilaudid 1 mg, 0.5 mL, Route: IV, Drug form: INJ, ONCE, Dosing Weight 64.545, kg, Start date: 09/28/12 1:27:00, Stop date: 09/28/12 1:27:00 IV No Longer Active [facility] 09/28/2012 [facility] Dilaudid 1 mg, 0.5 mL, Route: IV, Drug form: INJ, ONCE, Dosing Weight 64.545, kg, Start date: 09/28/12 0:16:00, Stop date: 09/28/12 0:16:00 IV No Longer Active [facility] 09/28/2012 [facility] NS (Bolus) IV 1,000 mL 1,000 m L, Rate: 1,000 ml/hr, Infuse over: 1 hr, Route: IV, Dosing Weight 64.545 kg, Total Volume: 1,000, Priority: STAT, Start date: 09/28/12 0:15:00, Duration: 1 doses or times, Stop date: 09/28/12 1:14:00, Bolus DoseBolus Dose IV No Longer Active [facility] 09/28/2012 [facility] morphine Sulfate 4 mg, Route: IVP, ONCE, Dosing Weight 64.545, kg, Start date: 09/28/12 0:15:00, Stop date: 09/28/12 0:15:00 IVP No Longer Active [facility] 09/28 [facility] Tylenol 975 mg, 3 tab, Route: PO, Drug form: TAB, ONCE, Dosing Weight 64.545, kg, Priority: STAT, Start date: 09/27/12 22:12:00, Stop date: 09/27/12 22:12:00 PO No Longer Active [facility] 09/28/2012 [facility] oral tablet 1 tab, PO, Daily, Substitution Allowed, Maintenance PO Active 09/28/2012 [facility] nt magnesium sulfate 2 gm, 50 mL, Route: IVPB, Drug form: INJ, ONCE, Dosing Weight 64.545, kg, Total dose = 2 gm, Start date: 09/27/12 21:35:00, Duration: 1 doses or times, Stop date: 09/27/12 21:35:00 IVPB No Longer Active [facility] 09/28 [facility] diazepam 10 mg, 1 tab, Route: PO, Drug form: TAB, ONCE, Dosing Weight 64.545, kg, Priority: STAT, Start date: 09/27/12 21:17:00, Stop date: 09/27/12 21:17:00 PO No Longer Active [facility] 09/28/2012 [facility] Celexa 20 mg, PO, QAM, Substit ution Allowed PO Active 09/28/2012 [facility] Atarax 25 mg oral tab 25 mg, 1 tab, PO, Bedtime, Substitution Allowed PO Active 09/28/2012 [facility] Ambien Substitution Allowed No Longer Active 09/28/2012 [facility] ondansetron 2 mg/mL injectable solution 4 mg, 2 mL, IVP, Q6H, PRN, 10 mL, Nausea & Vomiting, Substitution Allowed, INJ IVP Active [facility] 08/11/2012 [facility] acetaminophen-hydrocodone 325 mg-5 mg oral tablet 2 tab, PO, Q4H, PRN, 15 tab, Pain Score 4-6, Substitution Allowed, Maintenance, TAB PO Active [facility] 08/11/2012 [facility] docusate sodium 100 mg oral capsule 100 mg, 1 cap, Route: PO, Drug form: CAP, BID, Dosing Weight 66.818, kg, Start date: 08/10/12 9:00:00, Duration: 30 day, Stop date: 09/08/12 17:00:00 PO No Longer Active Wendy 08/10/2012 [facility] Flomax 0.4 mg, 1 cap, Route: P O, Drug form: CAP, After Breakfast, Dosing Weight 66.818, kg, Start date: 08/10/12 8:30:00, Duration: 30 day, Stop date: 09/08/12 8:30:00 PO No Longer Active Hinh 08/10/2012 [facility] Lovenox 40 mg, 0.4 mL, Route: SUB-Q, Drug form: INJ, [id number], Dosing Weight 66.818, kg, Start date: 08/10/12 6:00:00, Duration: 30 day, Stop date: 09/08/12 6:00:00 SUB-Q No Longer Active Wendy 08/10/2012 [facility] METRONIDazole (SCIP) 500 mg, 1 00 mL, Route: IVPB, Drug form: INJ, [id number], Dosing Weight 66.818, kg, Start date: 08/09/12 19:00:00, Duration: 3 doses or times, Stop date: 08/10/12 11:00:00 IVPB No Longer Active Wendy 08/10/2012 [facility] Ofirmev 1,000 mg, Route: IV, D rug form: INJ, ONCE, Dosing Weight 66.818, kg, PRN Pain, for > or = 50 kg, Start date: 08/09/12 18:15:00 IV No Longer Active Chandler 08/09/2012 [facility] Reedy 10/325 oral tablet 1 tab , Route: PO, Drug Form: TAB, Dosing Weight 66.818, kg, Q6H, PRN Pain, Start date: 08/09/12 18:15:00, Duration: 30 day, Stop date: 09/08/12 18:14:00 PO No Longer Active Chandler 08/09/2012 [facility] hydromorphone 0.5 mg, Route: I FRUIT AND VEGETABLE PARER, Q5Min, Dosing Weight 66.818, kg, PRN Pain Score 4-6, Start date: 08/09/12 18:15:00, Duration: 5 doses or times, Stop date: Limited # of times IVP No Longer Active Chandler 08/09/2012 [facility] fentanyl 25 microgram, Route: IVP, Q5Min, Dosing Weight 66.818, kg, PRN Pain Score 4-6, Start date: 08/09/12 18:15:00, Duration: 4 doses or times, Stop date: Limited # of times IVP No Longer Active Chandler 08/09/2012 [facility] flumazenil 0.2 mg, Route: IVP, PRN, Dosing Weight 66.818, kg, PRN Benzodiazepine Reversal, Initial dose, Start date: 08/09/12 18:15:00, Duration: 30 day, Stop date: 09/08/12 18:14:00 IVP No Longer Active Chandler 08/09/2012 [facility] naloxone 0.04 mg, Route: IVP, Q2MIN, Dosing Weight 66.818, kg, PRN Narcotic Reversal, Start date: 08/09/12 18:15:00, Duration: 8 doses or times, Stop date: Limited # of times IVP No Longer Active Chandler 08/09/2012 [facility] ondansetron 4 mg, Route: IVP, ONCE, Dosing Weight 66.818, kg, PRN Nausea & Vomiting, Start date: 08/09/12 18:15:00 IVP No Longer Active Chandler 08/09/2012 [facility] ciprofloxacin (SCIP) 400 mg, 2 00 mL, Route: IVPB, Drug form: INJ, [id number], Dosing Weight 66.818, kg, Start date: 08/09/12 18:00:00, Duration: 2 doses or times, Stop date: 08/10/12 6:00:00 IVPB No Longer Active Wendy 08/09/2012 [facility] Lactated Ringers Injection IV 1,000 mL 1,000 mL, Rate: 125 ml/hr, Infuse over: 8 hr, Route: IV, kg, Total Volume: 1,000, Start date: 08/09/12 17:24:00, Duration: 30 day, Stop date: 09/08/12 17:23:00 IV No Longer Active Wendy 08/09/2012 [facility] acetaminophen-hydrocodone 325 mg-5 mg oral tablet 2 tab, Route: PO, Drug Form: TAB, Dosing Weight 66.818, kg, Q4H, PRN Pain Score 4-6, Start date: 08/09/12 17:24:00, Duration: 30 day, Stop date: 09/08/12 17:23:00 PO No Longer Active Wendy [facility] ondansetron 4 mg, 2 mL, Route: IVP, Drug form: INJ, Q6H, Dosing Weight 66.818, kg, PRN Nausea & Vomiting, Start date: 08/09/12 17:24:00, Duration: 30 day, Stop date: 09/08/12 17:23:00 IVP No Longer Active Wendy 08/09/2012 [facility] diphenhydrAMINE 25 mg, 1 tab, Route: PO, Drug form: TAB, Bedtime, Dosing Weight 66.818, kg, PRN Insomnia, Start date: 08/09/12 17:24:00, Duration: 30 day, Stop date: 09/08/12 17:23:00 PO No Longer Active Wendy 08/09/2012 [facility] Lactated Ringers IV 1,000 mL 1 ,000 mL, Rate: 25 ml/hr, Infuse over: 40 hr, Route: IV, kg, Total Volume: 1,000, Start date: 08/09/12 15:19:00, Duration: 30 day, Stop date: 09/08/12 15:18:00 IV No Longer Active Frias 08/09/2012 [facility] Rocephin + Sodium Chloride 0.9% IV 100 mL 2 gm, Route: IVPB, ONCALL, Start date: 08/09/12 12:00:00, Duration: 2 day, Stop date: 08/11/12 11:59:00 IVPB No Longer Active Ewndy 08/09/2012 [facility] Paige Enema 133 ml, Route: AZ, Drug Form: SUMAN, Dosing Weight 66.818, kg, ONCE, Start date: 08/08/12 15:57:00, Stop date: 08/08/12 15:57:00 AZ No Longer Active Wendy 08/08/2012 [facility] Paige Enema 133 ml, Route: AZ, Drug Form: SUMAN, Dosing Weight 66.818, kg, ONCE, Start date: 08/08/12 7:05:00, Stop date: 08/08/12 7:05:00 AZ No Longer Active Rahim 08/08/2012 [facility] Ambien 10 mg, 1 tab, Route: PO , Drug form: TAB, Bedtime, Dosing Weight 66.818, kg, PRN as needed for sleep, Start date: 08/08/12 7:04:00, Duration: 30 day, Stop date: 09/07/12 7:03:00 PO No Longer Active Rahim 08/08/2012 [facility] temazepam 15 mg, 1 cap, Route: PO, Drug form: CAP, Bedtime, Dosing Weight 66.818, kg, Start date: 08/07/12 21:00:00, Duration: 30 day, Stop date: 09/05/12 21:00:00 PO No Longer Active Rahim 08/08/2012 [facility] Protonix 40 mg, 1 tab, Route: PO, Drug form: ECTAB, Before Dinner, Dosing Weight 66.364, kg, Start date: 08/07/12 16:30:00, Duration: 30 day, Stop date: 09/05/12 16:30:00 PO No Longer Active Rahim 08/07/2012 [facility] Pristiq 50mg po daily*Pts own med* Pristiq 50mg po daily*Pts own med*, Pristiq 50mg po daily*Pts own med*, Drug form: MISC, Route: PO, Daily, 08/07/12 9:00:00, Duration: 30 day, Stop date: 09/05/12 9:00:00 PO No Longer Active Rahim 08/07 [facility] Pristiq 50 mg oral tablet, extended release 1 tab, Route: PO, Drug form: ERTAB, Daily, Dosing Weight 66.364, kg, Start date: 08/07/12 9:00:00, Duration: 30 day, Stop date: 09/05/12 9:00:00 PO No Longer Active Rahim 08/07/2012 [facility] diazepam 10 mg, 1 tab, Route: PO, Drug form: TAB, QID, Dosing Weight 66.818, kg, Start date: 08/07/12 9:00:00, Duration: 30 day, Stop date: 09/05/12 21:00:00 PO No Longer Active Rahim 08/07/2012 [facility] Milk of Magnesia 60 ml, Route: PO, Drug Form: SUSP, Dosing Weight 66.818, kg, ONCE, PRN as needed for constipation, Start date: 08/07/12 7:13:00 PO No Longer Active Rahim 08/07/2012 [facility] Fleet Enema 133 ml, Route: AZ, Drug Form: SUMAN, Dosing Weight 66.818, kg, ONCE, Start date: 08/07/12 7:12:00, Stop date: 08/07/12 7:12:00 [place] No Longer Active Rahim 08/07/2012 [facility] Benadryl 25 mg, 0.5 mL, Route: IV, Drug form: INJ, Q4H, Dosing Weight 66.818, kg, PRN as needed for itching, Start date: 08/07/12 0:19:00, Duration: 30 day, Stop date: 09/06/12 0:18:00 IV No Longer Active Rahim 08/07/2012 [facility] hydromorphone 1.5 mg, 1.5 mL, Route: IV, Drug form: SOLN, Q3H, Dosing Weight 66.818, kg, PRN Pain Score 6-10, Start date: 08/06/12 17:42:00, Duration: 30 day, Stop date: 09/05/12 17:41:00 IV No Longer Active Rahim 08/06/2012 [facility] Protonix 40 mg, Route: IVP, Dr ug form: INJ, Before Dinner, Dosing Weight 66.364, kg, Start date: 08/06/12 16:30:00, Duration: 30 day, Stop date: 09/04/12 16:30:00 IVP No Longer Active [facility] 08/06/2012 [facility] Pristiq 50 mg oral tablet, extended release 50 mg, 1 tab, PO, Daily, 30 tab, Substitution Allowed, ERTAB PO Active Raalm 08/06/2012 [facility] Levaquin 500 mg, 100 mL, Route : IVPB, Drug form: INJ, [id number], Dosing Weight 66.364, kg, Start date: 08/06/12 15:00:00, Duration: 30 day, Stop date: 09/04/12 15:00:00 [facility] enoxaparin 40 mg, 0.4 mL, Rout e: SUB-Q, Drug form: INJ, [id number], Dosing Weight 66.364, kg, Start date: 08/06/12 15:00:00, Duration: 30 day, Stop date: 09/04/12 15:00:00 SUB-Q No Longer Active [facility] 08/06/2012 [facility] Restoril 30 mg, 2 cap, Route: PO, Drug form: CAP, Bedtime, Dosing Weight 66.364, kg, PRN Sleep, Start date: 08/06/12 14:15:00, Duration: 30 day, Stop date: 09/05/12 14:14:00 PO No Longer Active Raalm 08/06/2012 [facility] Phenergan + Sodium Chloride 0.9% IV 50 mL 12.5 mg, 0.5 mL, Route: IVPB, Q4H, Dosing Weight 66.364, kg, PRN Nausea & Vomiting, Start date: 08/06/12 14:14:00, Duration: 30 day, Stop date: 09/05/12 14:13:00 IVPB No Longer Active [facility] 08/06 [facility] Dilaudid 1 mg, 1 mL, Route: IV , Drug form: SOLN, Q3H, Dosing Weight 66.364, kg, PRN Pain, Start date: 08/06/12 14:13:00, Duration: 30 day, Stop date: 09/05/12 14:12:00 IV No Longer Active Raalm 08/06/2012 [facility] D5LR 1,000 mL 1,000 mL, Rate: 100 ml/hr, Infuse over: 10 hr, Route: IV, kg, Total Volume: 1,000, Start date: 08/06/12 14:08:00, Duration: 30 day, Stop date: 09/05/12 14:07:00 [facility]2012 [facility] Bentyl 10 mg, 1 cap, Route: PO , Drug form: CAP, Q6H, Dosing Weight 66.364, kg, PRN For Pain, Start date: 07/19/12 14:23:00, Duration: 30 day, Stop date: 08/18/12 14:22:00 PO No Longer Active Raalm 07/19/2012 [facility] Fioricet 1 tab, Route: PO, David g Form: TAB, Dosing Weight 66.364, kg, Q4H, PRN Headache, Start date: 07/19/12 7:23:00, Duration: 30 day, Stop date: 08/18/12 7:22:00 [facility]2012 [facility] zolpidem 20 mg, 2 tab, Route: PO, Drug form: TAB, Bedtime, Dosing Weight 66.364, kg, Start date: 07/18/12 21:00:00, Duration: 30 day, Stop date: 08/16/12 21:00:00 PO No Longer Active Raalm 07/19/2012 [facility] citalopram 10 mg, 1 tab, Route : PO, Drug form: TAB, Bedtime, Dosing Weight 66.364, kg, Start date: 07/18/12 21:00:00, Duration: 30 day, Stop date: 08/16/12 21:00:00 PO No Longer Active [facility] 07/19/2012 [facility] influenza virus vaccine, inactivated 0.5 ml, Route: IM, Drug Form: INJ, Start date: 07/18/12 13:30:00, Stop date: 07/18/12 13:30:00 Inactive [facility] 07/18/2012 [facility] Phenergan + Sodium Chloride 0.9% IV 50 mL 12.5 mg, 0.5 mL, Route: IVPB, ONCE, Dosing Weight 66.364, kg, Start date: 07/18/12 9:49:00, Stop date: 07/18/12 9:49:00 IVPB No Longer Active Raalm 07/18/2012 [facility] Valium 10 mg, 2 tab, Route: PO , Drug form: TAB, QID, Start date: 07/18/12 9:00:00, Duration: 30 day, Stop date: 08/16/12 21:00:00 PO No Longer Active Raalm 07/18 [facility] diazepam 10 mg, Route: PO, David g form: TAB, QID, Dosing Weight 66.364, kg, Start date: 07/18/12 9:00:00, Duration: 30 day, Stop date: 08/16/12 21:00:00 PO No Longer Active Raalm 07/18/2012 [facility] influenza virus vaccine, inactivated 0.5 ml, Route: IM, Drug Form: INJ, Daily, Start date: 07/18/12 9:00:00, Duration: 1 doses or times, Stop date: 07/18/12 9:00:00 IM No Longer Active [facility] 07/18/2012 [facility] Flomax 0.4 mg, 1 cap, Route: P O, Drug form: CAP, After Breakfast, Dosing Weight 66.364, kg, Start date: 07/18/12 8:30:00, Duration: 30 day, Stop date: 08/16/12 8:30:00 PO [facility] 07[facility]2012 [facility] D5W 1/2NS + KCL 20mEq/L 1000ml (Premix) 1,000 mL 1,000 mL, Rate: 150 ml/hr, Infuse over: 6.7 hr, Route: IV, kg, Total Volume: 1,000, Start date: 07/18/12 6:37:00, Duration: 30 day, Stop date: 08/17/12 6:36:00 IV No Longer Active [facility] 07[facility]18 [facility] diazepam 10 mg, 2 tab, Route: PO, Drug form: TAB, ONCE, Dosing Weight 66.364, kg, PRN Seizure, Start date: 07/18/12 6:10:00 PO No Longer Active Rahim 07/18/2012 [facility] diazepam 10 mg, 2 tab, Route: PO, Drug form: TAB, QID, Dosing Weight 66.364, kg, PRN, Start date: 07/18/12 5:26:00, Duration: 30 day, Stop date: 08/17/12 5:25:00, QID PO No Longer Active [facility] 07/18/2012 [facility] Dilaudid 1.5 mg, 1.5 mL, Route : IV, Drug form: SOLN, Q4H, Dosing Weight 66.364, kg, PRN Pain, Start date: 07/18/12 0:29:00, Stop date: 08/17/12 0:28:00 IV No Longer Active [facility] 07/18/2012 [facility] morphine Sulfate 2 mg, 1 mL, R oute: IVP, Drug form: INJ, Q4H, Dosing Weight 66.364, kg, PRN Pain Score 4-6, Start date: 07/17/12 20:23:00, Duration: 30 day, Stop date: 08/16/12 20:22:00 IVP No Longer Active [facility] 07/18/2012 [facility] Saline Flush 0.9% 5 ml, Route: IVP, Drug Form: INJ, Dosing Weight 66.364, kg, PRN, PRN Line Flush, Start date: 07/17/12 20:23:00, Duration: 30 day, Stop date: 08/16/12 21:22:00 IVP No Longer Active [facility] 07/18/2012 [facility] citalopram 10 mg oral tablet 1 0 mg, 1 tab, PO, Bedtime, 30 tab, Substitution Allowed, TAB PO Active [facility] 07/18/2012 [facility] Flomax 0.4 mg oral capsule 0.4 mg, 1 cap, PO, After Breakfast, 30 cap, Substitution Allowed, CAP PO Active [facility] 07/18/2012 [facility] Bactrim DS oral tablet 1 tab, PO, BID, 6 tab, Substitution Allowed, Maintenance PO Active 07/18/2012 [facility] Benadryl 12.5 mg, Route: IVP, ONCE, Dosing Weight 66.364, kg, Priority: STAT, Start date: 07/17/12 18:05:00, Stop date: 07/17/12 18:05:00 IVP No Longer Active [facility] 07/18/2012 [facility] Zofran 4 mg, Route: IVP, Drug form: INJ, ONCE, Dosing Weight 66.364, kg, PRN Nausea, Priority: STAT, Start date: 07/17/12 17:47:00 IVP No Longer Active [facility] 09/2012 [facility] morphine Sulfate 4 mg, Route: IVP, ONCE, Dosing Weight 66.364, kg, Start date: 07/17/12 17:47:00, Stop date: 07/17/12 17:47:00 IVP No Longer Active [facility] 09/2012 [facility] Saline Flush 0.9% 5 ml, Route: IVP, Drug Form: INJ, Dosing Weight 66.364, kg, PRN, PRN Line Flush, Start date: 07/17/12 15:00:00, Duration: 30 day, Stop date: 08/16/12 15:59:00 IVP No Longer Active [facility] 07/17/2012 [facility] LORAzepam 1 mg, 0.5 mL, Route: IVP, Drug form: INJ, ONCE, Dosing Weight 66.364, kg, Priority: STAT, Start date: 07/17/12 15:00:00, Stop date: 07/17/12 15:00:00 IVP No Longer Active [facility] 07/17/2012 [facility] Ativan 1 mg, Route: IVP, ONCE, Dosing Weight 66.364, kg, Priority: STAT, Start date: 07/16/12 2:47:00, Stop date: 07/16/12 2:47:00 IVP No Longer Active [facility] 08/2012 [facility] pantoprazole 40 mg, Route: IVP , ONCE, Dosing Weight 66.364, kg, For IV push reconstitute with 10 ml 0.9% sodium chloride and push over at least 3 minutes, Priority: STAT, Start date: 07/15/12 23:31:00, Stop date: 07/15/12 23:31:00 IVP No Longer Active [facility] 07/16/2012 [facility] Sodium Chloride 0.9% (Bolus) IV 500 mL 500 mL, Rate: 1,000 ml/hr, Infuse over: 30 minutes, Route: IV, kg, Total Volume: 500, Priority: STAT, Start date: 07/15/12 23:31:00, Duration: 1 doses or times, Stop date: 07/16/12 0:00:00 IV No Longer Active [facility] 07/16/2012 [facility] Saline Flush 0.9% 5 mL, Route: IVP, Drug Form: INJ, Dosing Weight 66.364, kg, PRN, PRN Line Flush, Start date: 07/15/12 23:31:00, Duration: 24 hr, Stop date: 07/16/12 23:30:00 IVP No Longer Active [facility] 07/16/2012 [facility] ondansetron 4 mg, Route: IVP, ONCE, Dosing Weight 66.364, kg, Priority: STAT, Start date: 07/15/12 23:31:00, Stop date: 07/15/12 23:31:00 [facility] hydromorphone 1 mg, Route: IVP , ONCE, Dosing Weight 66.364, kg, Priority: STAT, Start date: 07/15/12 23:31:00, Stop date: 07/15/12 23:31:00 [facility] levofloxacin 500 mg/100 mL intravenous solution 500 mg, 100 mL, IVPB, [id number], 7 mL, Substitution Allowed, INJ IVPB Active [facility] 07/11/2012 [facility] Reedy 5/325 oral tablet 1 tab, PO, Q4H, PRN, 12 tab, for pain, Substitution Allowed, Maintenance, TAB PO Active [facility] 07/11/2012 [facility] Reedy 10/325 oral tablet 1 tab , Route: PO, Drug Form: TAB, Dosing Weight 66.818, kg, Q6H, PRN Pain, Start date: 07/11/12 7:18:00, Duration: 30 day, Stop date: 08/10/12 7:17:00 PO [facility]2012 [facility] Protonix 40 mg, 1 tab, Route: PO, Drug form: ECTAB, Before Dinner, Dosing Weight 59.091, kg, Start date: 07/10/12 16:30:00, Duration: 30 day, Stop date: 08/08/12 16:30:00 PO No Longer Active Raalm 07/10/2012 [facility] amitriptyline 50 mg, 1 tab, Ro marita: PO, Drug form: TAB, Bedtime, Dosing Weight 66.818, kg, Start date: 07/09/12 21:00:00, Duration: 30 day, Stop date: 08/07/12 21:00:00 PO No [facility] 07[facility]10[facility]2012 [facility] Ambien 10 mg, 1 tab, Route: PO , Drug form: TAB, Bedtime, Dosing Weight 66.818, kg, PRN Insomnia, Start date: 07/09/12 17:41:00, Duration: 30 day, Stop date: 08/08/12 17:40:00 PO No Longer Active Raalm 07/09/2012 [facility] Protonix 40 mg, Route: IVP, Dr ug form: INJ, Before Dinner, Dosing Weight 59.091, kg, Start date: 07/09/12 16:30:00, Duration: 30 day, Stop date: 08/07/12 16:30:00 IVP No [facility]er [facility] 07/09/2012 [facility] diazepam 10 mg, 2 tab, Route: PO, Drug form: TAB, Q6H, Dosing Weight 66.818, kg, Start date: 07/09/12 14:57:00, Stop date: 08/08/12 10:00:00 PO No Longer Active [facility] 07/09/2012 [facility] enoxaparin 40 mg, 0.4 mL, Rout e: SUB-Q, Drug form: INJ, [id number], Dosing Weight 59.091, kg, Start date: 07/09/12 12:00:00, Duration: 30 day, Stop date: 08/07/12 13:00:00 SUB-Q No Longer Active [facility] 07/09/2012 [facility] Levaquin 500 mg, 100 mL, Route : IVPB, Drug form: INJ, [id number], Dosing Weight 59.091, kg, Start date: 07/09/12 12:00:00, Duration: 30 day, Stop date: 08/07/12 13:00:00 IVPB No Longer Active [facility] 07/09/2012 [facility] Phenergan + Sodium Chloride 0.9% IV 50 mL 12.5 mg, 0.5 mL, Route: IVPB, Q4H, Dosing Weight 59.091, kg, PRN Nausea & Vomiting, Start date: 07/09/12 11:12:00, Stop date: 08/08/12 11:11:00 IVPB No Longer Active Raalm 07/09/2012 [facility] Dilaudid 1 mg, 1 mL, Route: IV , Drug form: SOLN, Q3H, Dosing Weight 59.091, kg, PRN Pain, Start date: 07/09/12 11:12:00, Duration: 30 day, Stop date: 08/08/12 11:11:00 IV No Longer Active Rahim 07/09/2012 [facility] acetaminophen 650 mg, 2 tab, R oute: PO, Drug form: TAB, Q4H, Dosing Weight 59.091, kg, PRN Pain/Fever, Start date: 07/09/12 11:08:00, Duration: 30 day, Stop date: 08/08/12 11:07:00 PO No Longer Active Rahim 07/09/2012 [facility] NS + KCL 20mEq/L 1000ml (Premix) 1,000 mL 1,000 mL, Rate: 100 ml/hr, Infuse over: 10 hr, Route: IV, kg, Total Volume: 1,000, Start date: 07/09/12 11:08:00, Duration: 30 day, Stop date: 08/08/12 11:07:00 IV No Longer Active Raalm 07/09 [facility] Saline Flush 0.9% 5 ml, Route: IVP, Drug Form: INJ, Dosing Weight 59.091, kg, PRN, PRN Line Flush, Start date: 07/09/12 11:08:00, Duration: 30 day, Stop date: 08/08/12 12:07:00 IVP No Longer Active Raalm 07/09/2012 [facility] temazepam 15 mg, 1 cap, Route: PO, Drug form: CAP, Bedtime, Dosing Weight 59.091, kg, PRN Insomnia, Start date: 07/09/12 11:08:00, Duration: 30 day, Stop date: 08/08/12 11:07:00 PO No Longer Active Rahim 07/09/2012 [facility] docusate 100 mg, 1 cap, Route: PO, Drug form: CAP, BID, Dosing Weight 59.091, kg, PRN Constipation, Start date: 07/09/12 11:08:00, Duration: 30 day, Stop date: 08/08/12 11:07:00 PO No Longer Active Raalm 07/09/2012 [facility] Reedy 5/325 oral tablet 1 tab, PO, Q4H, PRN, 12 tab, for pain, Substitution Allowed, Maintenance, TAB PO On Hold Rah im 07/08/2012 [facility] Sodium Chloride 0.9% (Bolus) IV 500 mL, Route: IV, Dosing Weight 59.091, kg, ONCE, Bolus Dose - infuse over 1 hr, STAT, Start date: 07/08/12 2:00:00, Stop date: 07/08/12 2:00:00 IV No Longer Active [facility] 07/08/2012 [facility] Zofran 4 mg, Route: IVP, Drug form: INJ, ONCE, Dosing Weight 59.091, kg, PRN Nausea, Priority: STAT, Start date: 07/08/12 2:00:00 IVP No Longer Active [facility] 06/16 [facility] morphine Sulfate 4 mg, Route: IV, ONCE, Dosing Weight 59.091, kg, Start date: 07/08/12 1:59:00, Stop date: 07/08/12 1:59:00 IV No Longer Active [facility] 06/16 [facility] Ultram 50 mg oral tablet 50 mg , 1 tab, PO, Q4H, PRN, 12 tab, pain, Substitution Allowed PO Active Magdi pradhan 07/07/2012 [facility] Benadryl 25 mg, Route: PO, David g form: CAP, ONCE, Dosing Weight 66.364, kg, Priority: STAT, Start date: 07/07/12 1:11:00, Stop date: 07/07/12 1:11:00 PO No Longer Active [facility] 07/07/2012 [facility] ondansetron 4 mg, 2 mL, Route: IVP, Drug form: INJ, ONCE, Dosing Weight 66.364, kg, Priority: STAT, Start date: 07/07/12 0:05:00, Stop date: 07/07/12 0:05:00 IVP No Longer Active [facility] 07/07/2012 [facility] Sodium Chloride 0.9% (Bolus) IV 500 mL, 1000 ml/hr, Route: IV, Drug Form: INJ, Dosing Weight 66.364, kg, ONCE, Bolus at 1,000 ml/hr, STAT, Start date: 07/07/12 0:05:00, Stop date: 07/07/12 0:05:00 IV No Longer Active [facility] 07/07/2012 [facility] Saline Flush 0.9% 5 mL, Route: IVP, Drug Form: INJ, Dosing Weight 66.364, kg, PRN, PRN Line Flush, Start date: 07/07/12 0:05:00, Duration: 24 hr, Stop date: 07/08/12 0:04:00 IVP No Longer Active [facility] 07/07/2012 [facility] morphine Sulfate 4 mg, 2 mL, R oute: IVP, Drug form: INJ, ONCE, Dosing Weight 66.364, kg, Priority: STAT, Start date: 07/07/12 0:05:00, Stop date: 07/07/12 0:05:00 IVP No Longer Active [facility] 07/07/2012 [facility] droperidol 1.25 mg, Route: IVP , ONCE, Dosing Weight 65, kg, PRN Nausea & Vomiting, Start date: 05/31/12 9:20:00 IVP No Longer Active [facility] 05/31/2012 [facility] Reglan 10 mg, Route: IVP, ONCE , Dosing Weight 65, kg, Priority: STAT, Start date: 05/31/12 8:31:00, Stop date: 05/31/12 8:31:00 IVP No Longer Active [facility] Zofran 4 mg, 2 mL, Route: IVP, Drug form: INJ, ONCE, Dosing Weight 65, kg, Priority: STAT, Start date: 05/31/12 7:57:00, Stop date: 05/31/12 7:57:00 IVP No Longer Active [facility] 05/31/2012 [facility] Sodium Chloride 0.9% (Bolus) IV 1,000 mL, 1000 ml/hr, Route: IV, Drug Form: INJ, Dosing Weight 65, kg, ONCE, Bolus Dose. Infuse over 1 hour., STAT, Start date: 05/31/12 7:57:00, Stop date: 05/31/12 7:57:00 IV No Longer Active [facility] Saline Flush 0.9% 5 ml, Route: IVP, Drug Form: INJ, Dosing Weight 65, kg, PRN, PRN Line Flush, Start date: 05/31/12 7:57:00, Duration: 30 day, Stop date: 06/30/12 7:56:00 IVP No Longer Active Herminia 05/31/2012 [facility] Esgic 1 tab, Route: PO, Drug F orm: TAB, ONCE, Start date: 04/08/12 17:54:00, Stop date: 04/08/12 17:54:00 PO No Longer Active BlairHaley 04/08/2012 [facility] Midrin 1 tab, Route: PO, Drug Form: CAP, Dosing Weight 61.818, kg, ONCE, Start date: 04/08/12 17:31:00, Stop date: 04/08/12 17:31:00 PO No Longer Active Lon 04/08/2012 [facility] Zofran ODT 4 mg oral tablet, disintegrating 4 mg, 1 tab, PO, BID, PRN, Dissolve tab under tongue, 10 tab, Nausea and Vomiting, Substitution AllowedDissolve tab under tongue PO Active Rodrick Haley 04/08/2012 [facility] Zofran 4 mg, Route: IVP, Drug form: INJ, ONCE, Dosing Weight 61.818, kg, Priority: STAT, Start date: 04/08/12 17:04:00, Stop date: 04/08/12 17:04:00 IVP No Longer Active Lon 04/08/2012 [facility] Motrin 800 mg, Route: PO, Drug form: TAB, ONCE, Dosing Weight 61.818, kg, Priority: STAT, Start date: 04/08/12 16:27:00, Stop date: 04/08/12 16:27:00 PO No Longer Active Lon 04/08/2012 [facility] EpiPen Auto-Injector 0.3 mg injectable kit 0.3 mg, IM, ONCE, 1 kit, Substitution Allowed, SOLN IM Active [facility] 02/17/2012 [facility] epinephrine 1 mg/mL injectable solution 0.3 mg, Route: IM, ONCE, Dosing Weight 61.818, kg, Priority: STAT, Start date: 02/16/12 16:21:00, Stop date: 02/16/12 16:21:00 IM No Longer Active [facility] 02/16/2012 [facility] diphenhydrAMINE 25 mg, Route: IVP, ONCE, Dosing Weight 61.818, kg, Priority: STAT, Start date: 02/16/12 16:13:00, Stop date: 02/16/12 16:13:00 IVP No Longer Active [facility] 02/16/2012 [facility] LORAzepam 1 mg, Route: PO, ONC E, Dosing Weight 61.818, kg, Priority: STAT, Start date: 02/16/12 16:13:00, Stop date: 02/16/12 16:13:00 PO No Longer Active [facility] 08/2011 [facility] epinephrine topical 1:1000 solution 0.3 mL, Route: IM, ONCE, Start date: 02/16/12 16:13:00, Stop date: 02/16/12 16:13:00 IM No Longer Active [facility] 02/16/2012 [facility] famotidine 20 mg, Route: IVP, ONCE, Dosing Weight 61.818, kg, Priority: STAT, Start date: 02/16/12 16:13:00, Stop date: 02/16/12 16:13:00 IVP No Longer Active [facility] 02/16/2012 [facility] NS 500 mL 500 mL, Rate: 1,000 ml/hr, Infuse over: 0.5 hr, Route: IV, Dosing Weight 61.818 kg, Total Volume: 500, Start date: 02/16/12 16:12:00, Duration: 1 doses or times, Stop date: 02/16/12 16:41:00, Bolus D oseBolus Dose IV No Longer Active [facility] 02/16/2012 [facility] Toradol 30 mg/mL injectable solution 30 mg, Route: IV, Drug form: INJ, ONCE, Dosing Weight 62.727, kg, Priority: STAT, Start date: 01/25/12 0:13:00, Stop date: 01/25/12 0:13:00 IV No Longer Active Souman 01/25/2012 [facility] Sodium Chloride 0.9% (Bolus) IV 1000 mL 1,000 mL, Rate: 1,000 ml/hr, Infuse over: 1 hr, Route: IV, kg, Total Volume: 1,000, Bolus Dose, Priority: STAT, Start date: 01/24/12 21:58:00, Duration: 1 doses or times, Stop date: 01/24/12 22:57:00 IV No Longer Active Souman 01/25/2012 [facility] MiraLax 17 gm, 1 pkt, Route: P O, Drug form: PWDR, BID, kg, Start date: 01/02/12 17:00:00, Duration: 30 day, Stop date: 02/01/12 9:00:00 PO No Longer Active Jim 01/02/2012 [facility] vitamin A & D topical 1 appl, Route: TOP, QID, Drug form: OINT, Start date: 01/01/12 21:00:00, Duration: 30 day, Stop date: 01/31/12 17:00:00 TOP No Longer Active Rahim 01/02/2012 [facility] GoLYTELY 4,000 ml, Route: PO, Drug Form: PDR/REC, kg, ONCE, Start date: 01/01/12 17:17:00, Duration: 1 doses or times, Stop date: 01/01/12 17:17:00 PO No Longer Active Jim 01/01/2012 [facility] Zofran 4 mg, 2 mL, Route: IVP, Drug form: INJ, Q6H, kg, PRN Nausea, Start date: 01/01/12 14:09:00, Duration: 30 day, Stop date: 01/31/12 14:08:00 IVP No Longer Active Jim 01/01/2012 [facility] Ativan 1 mg, 0.5 mL, Route: IV , Drug form: INJ, Q4H, kg, PRN Anxiety, Priority: NOW, Start date: 01/01/12 11:02:00, Duration: 30 day, Stop date: 01/31/12 11:01:00 IV No Longer Active Rahim 01/01/2012 [facility] Pristiq 50 mg oral tablet, extended release 50 mg, 1 tab, Route: PO, Drug form: ERTAB, Daily, Dosing Weight 66.818, kg, Start date: 01/01/12 9:00:00, Duration: 30 day, Stop date: 01/30/12 9:00:00 PO No Longer Active Rahim 01/01/2012 [facility] Protonix 40 mg, Route: IVP, Dr antonio form: INJ, Daily, kg, Patient is NPO, Start date: 01/01/12 9:00:00, Duration: 30 day, Stop date: 01/30/12 9:00:00 IVP No [facility] 01/[facility]2012 [facility] Pt's own med DESVENLAFAXINE Pt's own med Pt's own med DESVENLAFAXINE Pt's own med, 50 mg, Drug form: MISC, Route: PO, Daily, 01/01/12 9:00:00, Duration: 30 day, Stop date: 01/30/12 9:00:00 PO No Longer Active Raalm 12/31 [facility] Saline Flush 0.9% 5 ml, Route: IVP, Drug Form: INJ, kg, PRN, PRN Line Flush, Start date: 01/01/12 8:33:00, Duration: 30 day, Stop date: 01/31/12 8:32:00 IVP No Longer Active [facility] 01/01/2012 [facility] Sodium Chloride 0.45% IV 1,000 mL 1,000 mL, Rate: 125 ml/hr, Infuse over: 8 hr, Route: IV, Dosing Weight 66.818 kg, Total Volume: 1,000, Start date: 01/01/12 8:33:00, Duration: 30 day, Stop date: 01/31/12 8:32:00 IV No Longer Active [facility] 01/01/2012 [facility] ondansetron 4 mg, 2 mL, Route: IVP, Drug form: INJ, ONCE, kg, PRN Nausea & Vomiting, Start date: 01/01/12 8:33:00 IVP No Longer Active [facility] 01/01/2012 [facility] Esgic 1 tab, Route: PO, Drug F orm: TAB, Q4H, PRN Other - See Comment, Start date: 01/01/12 0:36:00, Duration: 30 day, Stop date: 01/31/12 0:35:00 [facility] temazepam 15 mg, 1 cap, Route: PO, Drug form: CAP, Bedtime, kg, Start date: 12/31/11 23:59:00, Duration: 30 day, Stop date: 01/30/12 21:00:00 PO No Longer Active Raalm 01/01/2012 [facility] nitroglycerin 0.4 mg sublingual tablet 0.4 mg, 1 tab, Route: SL, Drug form: TAB, Q5Min, PRN Chest Pain, Start date: 12/31/11 23:44:00, Duration: 30 day, Stop date: 01/30/12 23:43:00 SL No Longer Active Raalm 01/01/2012 [facility] atropine 0.5 mg, 5 mL, Route: IVP, Drug form: INJ, PRN, PRN Bradycardia, Start date: 12/31/11 23:43:00, Duration: 30 day, Stop date: 01/30/12 23:42:00 IVP No Longer Active Raalm 01/01/2012 [facility] trazodone 150 mg, 3 tab, Route : PO, Drug form: TAB, Bedtime, kg, PRN Sleep, Start date: 12/31/11 21:29:00, Duration: 30 day, Stop date: 01/30/12 21:28:00 PO No Longer Active [facility] 01/01/2012 [facility] NS + KCL 20mEq/L 1000ml (Premix) 1,000 mL 1,000 mL, Rate: 125 ml/hr, Infuse over: 8 hr, Route: IV, Dosing Weight 66.818 kg, Total Volume: 1,000, Start date: 12/31/11 21:27:00, Duration: 30 day, Stop date: 01/30/12 21:26:00 IV No Longer Active [facility] 01/01/2012 [facility] trazodone 150 mg oral tablet 1 50 mg, 1 tab, PO, Bedtime, PRN, 30 tab, insomnia (for waking up after taking other sleep meds), Substitution Allowed, TAB PO Active [facility] 01/01/2012 [facility] temazepam 15 mg oral capsule 1 5 mg, 1 cap, PO, Bedtime, Substitution Allowed, with zolpidem for PTSDwith zolpidem for PTSD PO Active [facility] 01/01/2012 [facility] zolpidem 10 mg oral tablet 20 mg, 2 tab, PO, Bedtime, Substitution Allowed, with temazepam for PTSDwith temazepam for PTSD PO Active 01/01/2012 [facility] Fioricet 1 tab, Route: PO, David g Form: TAB, kg, ONCE, Start date: 12/31/11 19:57:00, Stop date: 12/31/11 19:57:00 PO No Longer Active [facility] 01/01/2012 [facility] Zofran 4 mg, Route: PO, ONCE, Dosing Weight 66.818, kg, Start date: 12/31/11 19:27:00, Stop date: 12/31/11 19:27:00 PO No Longer Active [facility] 01/01/2012 [facility] acetaminophen 975 mg, 3 tab, R oute: PO, Drug form: TAB, ONCE, kg, Priority: STAT, Start date: 12/31/11 18:21:00, Stop date: 12/31/11 18:21:00 PO No Longer Active [facility] 12/31/2011 [facility] Sodium Chloride 0.9% (Bolus) IV 1,000 mL 1,000 mL, Rate: 1,000 ml/hr, Infuse over: 1 hr, Route: IV, Dosing Weight 66.818 kg, Total Volume: 1,000, Bolus Dose, Priority: STAT, Start date: 12/31/11 18:20:00, Duration: 1 doses or times, Stop date: 12/31/11 19:19:00 IV No Longer Active [facility] 12/31/2011 [facility] Zofran 4 mg, Route: IVP, Drug form: INJ, ONCE, Dosing Weight 66.875, kg, Priority: STAT, Start date: 12/31/11 0:45:00, Stop date: 12/31/11 0:45:00 IVP No Longer Active [facility] 12/31/2011 [facility] morphine Sulfate 2 mg, Route: IVP, ONCE, Dosing Weight 66.875, kg, Start date: 12/31/11 0:13:00, Stop date: 12/31/11 0:13:00 IVP No Longer Active [facility] 12/13 [facility] Saline Flush 0.9% 5 ml, Route: IVP, Drug Form: INJ, kg, PRN, PRN Line Flush, Start date: 12/30/11 23:07:00, Duration: 24 hr, Stop date: 12/31/11 23:06:00 IVP No Longer Active Mauriciorehan 12/31/2011 [facility] NS (Bolus) IV 1,000 mL 1,000 m L, Rate: 1,000 ml/hr, Infuse over: 1 hr, Route: IV, Dosing Weight 63 kg, Total Volume: 1,000, Priority: STAT, Start date: 10/16/11 1:26:00, Duration: 1 doses or times, Stop date: 10/16/11 2:25:00, Bolus DoseBolus Dose IV No Longer Active [facility] 10/16/2011 [facility] Fioricet with Codeine oral capsule 2 cap, PO, Q4H, PRN, 20 cap, for headache, Substitution Allowed, Maintenance, CAP PO Active [facility] 10/10/2011 [facility] Pristiq 50 mg oral tablet, extended release 50 mg, 1 tab, Route: PO, Drug form: ERTAB, Daily, Start date: 10/10/11 9:00:00, Duration: 30 day, Stop date: 11/08/11 9:00:00 PO No Longer Active [facility] 10/10/2011 [facility] Pristiq 50mg Pristiq 50mg, (pt 's own med), Drug form: MISC, Route: PO, Daily, 10/10/11 9:00:00, Duration: 30 day, Stop date: 11/08/11 9:00:00 PO No Longer Active [facility] 10/10/2011 [facility] Benadryl 25 mg, 0.5 mL, Route: IV, Drug form: INJ, QID, PRN as needed for allergy symptoms, Start date: 10/09/11 19:07:00, Duration: 30 day, Stop date: 11/08/11 19:06:00 IV No Longer Active [facility] 10/10/2011 [facility] diazepam 10 mg, 1 tab, Route: PO, Drug form: TAB, QID, Start date: 10/09/11 17:00:00, Duration: 30 day, Stop date: 11/08/11 13:00:00 PO No Longer Active [facility] 2011 [facility] Fioricet with Codeine Fioricet with Codeine, (pt's own med), Drug form: MISC, Route: PO, Q4H, PRN Pain, 10/09/11 16:33:00, Duration: 30 day, Stop date: 11/08/11 16:32:00 PO No Longer Active Fang 10/09/2011 [facility] Fioricet 1 tab, Route: PO, David g Form: TAB, Q4H, PRN Headache, Start date: 10/09/11 16:29:00, Duration: 30 day, Stop date: 11/08/11 16:28:00 PO No Longer Active Fang 10/09/2011 [facility] Fioricet with Codeine 1 cap, R oute: PO, Drug Form: CAP, Q4H, PRN Headache, Start date: 10/09/11 16:28:00, Duration: 30 day, Stop date: 11/08/11 16:27:00 PO No Longer Active Fan 10/09/2011 [facility] Ambien 20 mg, 2 tab, Route: PO , Drug form: TAB, Bedtime, PRN Sleep, Start date: 10/09/11 15:54:00, Duration: 30 day, Stop date: 11/08/11 15:53:00 PO No Longer Active Fan 10/09/2011 [facility] Motrin 600 mg, 3 tab, Route: P O, Drug form: TAB, QID, PRN Pain, Start date: 10/09/11 15:27:00, Duration: 30 day, Stop date: 11/08/11 15:26:00 PO No Longer Active Fan 10/09/2011 [facility] trazodone 50 mg oral tablet 50 mg, 1 tab, Route: PO, Drug form: TAB, Bedtime, PRN Anxiety, Start date: 10/09/11 15:26:00, Duration: 30 day, Stop date: 11/08/11 15:25:00 PO No Longer Active Fang 10/09/2011 [facility] Ambien CR 25 mg, Route: PO, Dr ug form: ERTAB, Bedtime, PRN as needed for sleep, Start date: 10/09/11 15:26:00, Duration: 30 day, Stop date: 11/08/11 15:25:00 PO No Longer Active Fang 10/09/2011 [facility] Tylenol 650 mg, 2 tab, Route: PO, Drug form: TAB, Q6H, PRN Pain, Start date: 10/09/11 12:08:00, Duration: 30 day, Stop date: 11/08/11 12:07:00 PO No Longer Active [facility] 10/09/2011 [facility] Saline Flush 0.9% 5 ml, Route: IVP, Drug Form: INJ, Q12H, Start date: 10/09/11 9:00:00, Duration: 30 day, Stop date: 11/07/11 21:00:00 IVP No Longer Active [facility] 10/09/2011 [facility] Benadryl 50 mg, Route: IVP, ON CE, benadryl 50mg ivp x1 dose now, Start date: 10/09/11 5:50:00, Stop date: 10/09/11 5:50:00 IVP No Longer Active [facility] 2011 [facility] Benadryl 50 mg, 1 mL, Route: I FRUIT AND VEGETABLE PARER, Drug form: INJ, ONCE, PRN Itching, Start date: 10/09/11 5:46:00 IVP No Longer Active [facility] 10/09/2011 [facility] trazodone 50 mg oral tablet 50 mg, 1 tab, PO, PRN, as needed for insomnia if ambien does not work, Substitution Allowed, TAB PO Active [facility] 10/09/2011 [facility] Ambien CR 12.5 mg oral tablet, extended release 25 mg, 2 tab, PO, Bedtime, PRN, for sleep, Substitution Allowed, ERTAB PO Active [facility] 10/09/2011 [facility] nitroglycerin 0.4 mg sublingual tablet 0.4 mg, 1 tab, Route: SL, Drug form: TAB, Q5Min, PRN Chest Pain, Start date: 10/09/11 4:49:00, Duration: 30 day, Stop date: 11/08/11 4:48:00 SL No Longer Active [facility] 10/09/2011 [facility] atropine 0.5 mg, 5 mL, Route: IVP, Drug form: INJ, PRN, PRN Bradycardia, Start date: 10/09/11 4:48:00, Duration: 30 day, Stop date: 11/08/11 4:47:00 IVP No Longer Active [facility] 10/09/2011 [facility] Saline Flush 0.9% 5 ml, Route: IVP, Drug Form: INJ, PRN, PRN Line Flush, Start date: 10/09/11 4:44:00, Duration: 30 day, Stop date: 11/08/11 4:43:00 IVP No Longer Active Fan 10/09/2011 [facility] acetaminophen-hydrocodone 325 mg-5 mg oral tablet 1 tab, Route: PO, ONCE, STAT, Start date: 10/09/11 3:40:00, Stop date: 10/09/11 3:40:00 PO No Longer Active [facility] 10/09/2011 [facility] potassium chloride 40 mEq, Rou te: PO, Drug form: ERTAB, ONCE, Priority: STAT, Start date: 10/09/11 3:33:00, Stop date: 10/09/11 3:33:00 PO No Longer Active [facility] 1/2NS 1,000 mL 1,000 mL, Rate: 125 ml/hr, Infuse over: 8 hr, Route: IV, Dosing Weight 62.727 kg, Total Volume: 1,000, Start date: 10/09/11 2:53:00, Duration: 30 day, Stop date: 11/08/11 2:52:00 IV No Longer Active [facility] 10/09/2011 [facility] influenza virus vaccine, inactivated 0.5 ml, Route: IM, Drug Form: INJ, Start date: 03/31/11 9:00:00, Stop date: 03/31/11 9:00:00 Inactive [facility] 03/31/2011 [facility] [facility], MICHAEL Dunn, [facility] Allergies, Adverse Reactions, Alerts Substance Category Reaction Severity Reaction type Status Date Reported Comments Source aspirin Assertion Drug allergy Active [facility] Augmentin Assertion Drug allergy Active [facility] Food MSG Assertion Drug allergy Active [facility] Imitrex Assertion Drug allergy Active [facility] iodine Assertion Drug allergy Active [facility] Iron (Ferrous Sulfate) drug al lergy Allergy Active [facility] Paper Tape Assertion Drug allergy Active [facility] shellfish Assertion Drug allergy Active [facility] Latex drug allergy Allergy Act jose maria [facility] Immunizations Immunization Date Given Site Status Last Updated Comments Source influenza virus vaccine, inactivated 07/18/2012 completed Altagracia [facility] influenza virus vaccine, inactivated 07/18/2012 Right deltoid completed Altagracia [facility] influenza virus vaccine, inactivated 03/31/2011 Not Given Artem [facility], MICHAEL [facility] Hx pneumococcal vaccine 2010 completed Violetta fisher [facility], Ruma Ordoñezann,[facility] Hx pneumococcal vaccine 2010 completed [facility] Order Name Results Value Reference Range Date Interpretation Comments Source HEMATOLOGY Sed Rate 8 0 - 20 07/13/2016 [facility] IMMUNOLOGY C-REACTIVE PROTEIN <2.9 <=2.9 mg/L 07/13/2016 [facility] [place] MCHC 33.4 32.0 - 36.0 07/13/2016 [facility] [place] MPV 9.1 7.4 - 10.4 07/13/2016 [facility] RDW 15.9 11.5 - 14.5 07/13/2016 [facility] Platelet 271 133 - 450 07/13/2016 [facility] WBC 6.0 3.7 - 10.4 07/13/2016 [facility] MCH 30.8 27.0 - 31.0 07/13/2016 [facility] Hct 35.7 36.0 - 48.0 07/13/2016 [facility] [place] MCV 92.3 80.0 - 98.0 07/13/2016 [facility] Hgb 11.9 12.0 - 16.0 07/13/2016 [facility] RBC 3.86 4.20 - 5.40 07/13/2016 [facility] [place] Basophils # 0.1 0.0 - 0.2 07/13/2016 [facility] HEMATOLOGY Basophils 0.8 0.0 - 1.0 07/13/2016 [facility] [place] Monocytes 8.8 2.0 - 12.0 07/13/2016 [facility] [place] Eosinophils 8.6 0.0 - 4.0 07/13/2016 [facility] HEMATOLOGY Segs 38.1 45.0 - 75.0 07/13/2016 [facility] HEMATOLOGY Lymphocytes 43.7 20.0 - 40.0 07/13/2016 [facility] HEMATOLOGY Eosinophils # 0.5 0.0 - 0.5 07/13/2016 [facility] [place] Monocytes # 0.5 0.0 - 0.8 07/13/2016 [facility] [place] Lymphocytes # 2.6 1.0 - 5.5 07/13/2016 [facility] HEMATOLOGY Segs-Bands # 2.3 1.5 - 8.1 07/13/2016 [facility] CHEM PANEL Lipase Lvl 171 73 - 393 07/13/2016 [facility] CHEM PANEL eGFR 107 07/13/2016 Result [...] should be multiplied by the estimated BMI. [facility] CHEM PANEL AST 18 0 - 37 07/13/2016 [facility] CHEM PANEL Calcium Lvl 8.6 8.5 - 10.5 07/13/2016 [facility] CHEM PANEL Alk Phos 86 39 - 136 07/13/2016 [facility] CHEM PANEL Albumin Lvl 3.7 3.5 - 5.0 07/13/2016 [facility] CHEM PANEL ALT 64 0 - 65 07/13/2016 [facility] CHEM PANEL CO2 29 24 - 32 07/13/2016 [facility] CHEM PANEL Total Protein 6.7 6.4 - 8.4 07/13/2016 [facility] CHEM PANEL AGAP 10.3 10.0 - 20.0 07/13/2016 [facility] CHEM PANEL Bili Total <0.1 0.2 - 1.3 07/13/2016 [facility] CHEM PANEL B/C Ratio 23 6 - 25 07/13/2016 [facility] CHEM PANEL Globulin 3.0 2.7 - 4.2 07/13/2016 [facility] CHEM PANEL A/G Ratio 1.2 0.7 - 1.6 07/13/2016 [facility] CHEM PANEL Chloride Lvl 103 95 - 109 07/13/2016 [facility] CHEM PANEL Potassium Lvl 4.3 3.5 - 5.1 07/13/2016 [facility] CHEM PANEL Sodium Lvl 138 135 - 145 07/13/2016 [facility] CHEM PANEL Creatinine Lvl 0.71 0.50 - 1.40 07/13/2016 [facility] CHEM PANEL BUN 16 7 - 22 07/13/2016 [facility] CHEM PANEL Glucose Lvl 87 70 - 99 07/13/2016 [facility] URINE AND STOOL UA Turbidity Clear (07/13/16 4:47 AM) Clear 07/13/2016 [facility] URINE AND STOOL UA Color Yellow *NA* (07/13/16 4:47 AM) Yellow 07/13/2016 [facility] URINE AND STOOL UA Glucose Negative mg/dL Negative mg/dL 07/13/[address] [facility] [address] URINE AND STOOL UA Protein Negative mg/dL Negative mg/dL 07/13/[address] [facility] [address] URINE AND STOOL UA pH 5.0 5.0 - 8.0 07/13/2016 [facility] URINE AND STOOL UA Ketones Negative mg/dL Negative mg/dL 07/13/[address] [facility] [address] URINE AND STOOL UA Bili Negative *NA* (07/13/16 4:47 AM) Negative 07/13/2016 [facility] URINE AND STOOL UA Hyal Cast 1 0 - 2 07/13/2016 [facility] URINE AND STOOL UA Sq Epi Occasional /LPF Few /LPF 07/13/2016 [facility] URINE AND STOOL UA Leuk Est Small *ABN* (07/13/16 4:47 AM) Negative 07/13/2016 [facility] URINE AND STOOL UA Nitrite Negative (07/13/16 4:47 AM) Negative 07/13/2016 [facility] URINE AND STOOL UA WBC 5 0 - 5 07/13/2016 [facility] URINE AND STOOL UA RBC 3 0 - 2 07/13/2016 [facility] URINE AND STOOL UA Spec Grav 1.012 <=1.030 07/13/2016 [facility] URINE AND STOOL UA Urobilinogen <=1.0 mg/dL 0.1 - 1.0 07/13/2016 [facility] URINE AND STOOL UA Blood Negative (07/13/16 4:47 AM) Negative 07/13/2016 [facility] URINE CHEM U Preg Negat jose maria (07/13/16 4:47 AM) Negative 07/13/2016 [facility] HEMATOLOGY RDW 16.4 11.5 - 14.5 05/10/2016 [facility] HEMATOLOGY MPV 8.6 7.4 - 10.4 05/10/2016 [facility] HEMATOLOGY Platelet 304 133 - 450 05/10/2016 [facility] [place] MCHC 33.0 32.0 - 36.0 05/10/2016 [facility] [place] MCH 29.9 27.0 - 31.0 05/10/2016 [facility] HEMATOLOGY MCV 90.7 80.0 - 98.0 05/10/2016 [facility] HEMATOLOGY Hct 28.2 36.0 - 48.0 05/10/2016 [facility] HEMATOLOGY Hgb 9.3 12.0 - 16.0 05/10/2016 [facility] HEMATOLOGY RBC 3.10 4.20 - 5.40 05/10/2016 [facility] HEMATOLOGY WBC 10.2 3.7 - 10.4 05/10/2016 [facility] HEMATOLOGY Eosinophils 1.2 0.0 - 4.0 05/10/2016 [facility] HEMATOLOGY Basophils 0.7 0.0 - 1.0 05/10/2016 [facility] HEMATOLOGY Lymphocytes # 2.0 1.0 - 5.5 05/10/2016 [facility] HEMATOLOGY Segs-Bands # 7.2 1.5 - 8.1 05/10/2016 [facility] HEMATOLOGY Segs 70.1 45.0 - 75.0 05/10/2016 [facility] HEMATOLOGY Monocytes 8.1 2.0 - 12.0 05/10/2016 [facility] HEMATOLOGY Lymphocytes 19.9 20.0 - 40.0 05/10/2016 [facility] HEMATOLOGY Monocytes # 0.8 0.0 - 0.8 05/10/2016 [facility] HEMATOLOGY Basophils # 0.1 0.0 - 0.2 05/10/2016 [facility] HEMATOLOGY Eosinophils # 0.1 0.0 - 0.5 05/10/2016 [facility] CHEM PANEL A/G Ratio 1.1 0.7 - 1.6 05/05/2016 [facility] CHEM PANEL Globulin 2.6 2.7 - 4.2 05/05/2016 [facility] CHEM PANEL AGAP 11.8 10.0 - 20.0 05/05/2016 [facility] CHEM PANEL B/C Ratio 12 6 - 25 05/05/2016 [facility] CHEM PANEL eGFR 111 05/05/2016 Result [...] should be multiplied by the estimated BMI. [facility] CHEM PANEL AST 8 0 - 37 05/05/2016 [facility] CHEM PANEL Bili Total 0.1 0.2 - 1.3 05/05/2016 [facility] CHEM PANEL Alk Phos 65 39 - 136 05/05/2016 [facility] CHEM PANEL ALT 43 0 - 65 05/05/2016 [facility] CHEM PANEL Total Protein 5.4 6.4 - 8.4 05/05/2016 [facility] CHEM PANEL Albumin Lvl 2.8 3.5 - 5.0 05/05/2016 [facility] CHEM PANEL Chloride Lvl 105 95 - 109 05/05/2016 [facility] CHEM PANEL CO2 29 24 - 32 05/05/2016 [facility] CHEM PANEL Calcium Lvl 8.0 8.5 - 10.5 05/05/2016 [facility] CHEM PANEL Potassium Lvl 3.8 3.5 - 5.1 05/05/2016 [facility] CHEM PANEL Sodium Lvl 142 135 - 145 05/05/2016 [facility] CHEM PANEL BUN 8 7 - 22 05/05/2016 [facility] CHEM PANEL Creatinine Lvl 0.66 0.50 - 1.40 05/05/2016 [facility] CHEM PANEL Glucose Lvl 76 70 - 99 05/05/2016 [facility] HEMATOLOGY Segs 47.1 45.0 - 75.0 05/05/2016 [facility] HEMATOLOGY Lymphocytes 38.2 20.0 - 40.0 05/05/2016 [facility] HEMATOLOGY Lymphocytes # 2.0 1.0 - 5.5 05/05/2016 [facility] HEMATOLOGY Monocytes # 0.4 0.0 - 0.8 05/05/2016 [facility] HEMATOLOGY Segs-Bands # 2.5 1.5 - 8.1 05/05/2016 [facility] HEMATOLOGY Eosinophils # 0.4 0.0 - 0.5 05/05/2016 [facility] [place] Monocytes 7.0 2.0 - 12.0 05/05/2016 [facility] HEMATOLOGY Basophils 0.9 0.0 - 1.0 05/05/2016 [facility] [place] Eosinophils 6.8 0.0 - 4.0 05/05/2016 [facility] [place] MCH 29.5 27.0 - 31.0 05/05/2016 [facility] [place] Hct 24.6 36.0 - 48.0 05/05/2016 [facility] MCV 90.3 80.0 - 98.0 05/05/2016 [facility] RBC 2.73 4.20 - 5.40 05/05/2016 [facility] [place] Hgb 8.1 12.0 - 16.0 05/05/2016 [facility] RDW 15.8 11.5 - 14.5 05/05/2016 [facility] [place] MCHC 32.7 32.0 - 36.0 05/05/2016 [facility] MPV 8.8 7.4 - 10.4 05/05/2016 [facility] Platelet 330 133 - 450 05/05/2016 [facility] WBC 5.3 3.7 - 10.4 05/05/2016 [facility] PTT 28.5 22.9 - 35.8 04/30/2016 [facility] INR 0.93 0.85 - 1.17 04/30/2016 [facility] PT 12.7 12.0 - 14.7 04/30/2016 [facility] CHEM PANEL Lipase Lvl 172 73 - 393 04/30/2016 [facility] CHEM PANEL eGFR 102 04/30/2016 Result [...] B/C Ratio 26 6 - 25 04/30/2016 [facility] CHEM PANEL Globulin 3.0 2.7 - 4.2 04/30/2016 [facility] CHEM PANEL A/G Ratio 1.0 0.7 - 1.6 04/30/2016 [facility] ENDOCRINOLOGY hCG Tot 2 04/30/2016 [facility] HEMATOLOGY Basophils # 0.1 0.0 - 0.2 04/30/2016 [facility] HEMATOLOGY Eosinophils # 0.2 0.0 - 0.5 04/30/2016 [facility] HEMATOLOGY Monocytes # 0.6 0.0 - 0.8 04/30/2016 [facility] HEMATOLOGY Lymphocytes # 2.0 1.0 - 5.5 04/30/2016 [facility] HEMATOLOGY Lymphocytes 31.6 20.0 - 40.0 04/30/2016 [facility] HEMATOLOGY Eosinophils 3.4 0.0 - 4.0 04/30/2016 [facility] HEMATOLOGY Monocytes 9.3 2.0 - 12.0 04/30/2016 [facility] HEMATOLOGY Segs-Bands # 3.5 1.5 - 8.1 04/30/2016 [facility] HEMATOLOGY Basophils 1.2 0.0 - 1.0 04/30/2016 [facility] HEMATOLOGY Segs 54.5 45.0 - 75.0 04/30/2016 [facility] HEMATOLOGY RBC 3.30 4.20 - 5.40 04/30/2016 [facility] HEMATOLOGY WBC 6.4 3.7 - 10.4 04/30/2016 [facility] HEMATOLOGY Hct 29.9 36.0 - 48.0 04/30/2016 [facility] HEMATOLOGY MCV 90.6 80.0 - 98.0 04/30/2016 [facility] HEMATOLOGY Hgb 9.8 12.0 - 16.0 04/30/2016 [facility] HEMATOLOGY MPV 8.5 7.4 - 10.4 04/30/2016 [facility] HEMATOLOGY Platelet 391 133 - 450 04/30/2016 [facility] HEMATOLOGY RDW 15.6 11.5 - 14.5 04/30/2016 [facility] [place] MCHC 32.9 32.0 - 36.0 04/30/2016 [facility] MCH 29.8 27.0 - 31.0 04/30/2016 [facility] URINE AND STOOL UA Leuk Est Trace *ABN* (04/29/16 8:56 PM) Negative 04/30/2016 [facility] URINE AND STOOL UA Bacteria Occasional /HPF None Seen /HPF 04/30/[address] [facility] [address] URINE AND STOOL UA RBC 1 0 - 2 04/30/2016 [facility] URINE AND STOOL UA Amorph Adrianne Few /HPF None Seen /HPF 04/30/[address] [facility] [address] URINE AND STOOL UA WBC 5 0 - 5 04/30/2016 [facility] URINE AND STOOL UA Sq Epi None Seen 04/30/2016 [facility] URINE AND STOOL UA Urobilinogen <=1.0 mg/dL 0.1 - 1.0 04/30/[address] [facility] [address] URINE AND STOOL UA pH 7.0 5.0 - 8.0 04/30/2016 [facility] URINE AND STOOL UA Protein Negative mg/dL Negative mg/dL 04/30/[address] [facility] [address] URINE AND STOOL UA Glucose Negative mg/dL Negative mg/dL 04/30/[address] [facility] [address] URINE AND STOOL UA Spec Grav 1.014 <=1.030 04/30/2016 [facility] URINE AND STOOL UA Turbidity Marked *ABN* (04/29/16 8:56 PM) Clear 04/30/2016 [facility] URINE AND STOOL UA Color Yellow *NA* (04/29/16 8:56 PM) Yellow 04/30/2016 [facility] URINE AND STOOL UA Nitrite Negative (04/29/16 8:56 PM) Negative 04/30/2016 [facility] URINE AND STOOL UA Blood Negative (04/29/16 8:56 PM) Negative 04/30/2016 [facility] URINE AND STOOL UA Bili Negative *NA* (04/29/16 8:56 PM) Negative 04/30/2016 [facility] URINE AND STOOL UA Ketones Negative mg/dL Negative mg/dL 04/30/2016 [facility] CHEM PANEL eGFR 90 04/12/2016 Result [...] should be multiplied by the estimated BMI. [facility] CHEM PANEL AST 9 0 - 37 04/12/2016 [facility] CHEM PANEL ALT 28 0 - 65 04/12/2016 [facility] CHEM PANEL Alk Phos 60 39 - 136 04/12/2016 [facility] CHEM PANEL Bili Total 0.2 0.2 - 1.3 04/12/2016 [facility] CHEM PANEL Calcium Lvl 8.8 8.5 - 10.5 04/12/2016 [facility] CHEM PANEL CO2 27 24 - 32 04/12/2016 [facility] CHEM PANEL Chloride Lvl 101 95 - 109 04/12/2016 [facility] CHEM PANEL Creatinine Lvl 0.82 0.50 - 1.40 04/12/2016 [facility] CHEM PANEL Glucose Lvl 96 70 - 99 04/12/2016 [facility] CHEM PANEL BUN 17 7 - 22 04/12/2016 [facility] CHEM PANEL Sodium Lvl 137 135 - 145 04/12/2016 [facility] CHEM PANEL Potassium Lvl 4.0 3.5 - 5.1 04/12/2016 [facility] CHEM PANEL Total Protein 6.7 6.4 - 8.4 04/12/2016 [facility] CHEM PANEL Albumin Lvl 3.6 3.5 - 5.0 04/12/2016 [facility] CHEM PANEL A/G Ratio 1.2 0.7 - 1.6 04/12/2016 [facility] CHEM PANEL B/C Ratio 21 6 - 25 04/12/2016 [facility] CHEM PANEL Globulin 3.1 2.7 - 4.2 04/12/2016 [facility] CHEM PANEL AGAP 13.0 10.0 - 20.0 04/12/2016 [facility] ENDOCRINOLOGY S Preg Ne gative *NA* (04/11/16 9:18 PM) Negative 04/12/2016 [facility] HEMATOLOGY MCH 29.6 27.0 - 31.0 04/12/2016 [facility] HEMATOLOGY MCHC 32.9 32.0 - 36.0 04/12/2016 [facility] HEMATOLOGY MCV 89.9 80.0 - 98.0 04/12/2016 [facility] HEMATOLOGY Hct 30.8 36.0 - 48.0 04/12/2016 [facility] HEMATOLOGY Platelet 381 133 - 450 04/12/2016 [facility] HEMATOLOGY MPV 8.7 7.4 - 10.4 04/12/2016 [facility] HEMATOLOGY RDW 15.4 11.5 - 14.5 04/12/2016 [facility] HEMATOLOGY RBC 3.43 4.20 - 5.40 04/12/2016 [facility] HEMATOLOGY WBC 7.1 3.7 - 10.4 04/12/2016 [facility] HEMATOLOGY Hgb 10.1 12.0 - 16.0 04/12/2016 [facility] HEMATOLOGY PTT 23.9 22.9 - 35.8 04/12/2016 [facility] HEMATOLOGY INR 0.93 0.85 - 1.17 04/12/2016 [facility] HEMATOLOGY PT 12.7 12.0 - 14.7 04/12/2016 [facility] HEMATOLOGY Monocytes # 0.5 0.0 - 0.8 04/12/2016 [facility] HEMATOLOGY Basophils # 0.1 0.0 - 0.2 04/12/2016 [facility] HEMATOLOGY Basophils 1.1 0.0 - 1.0 04/12/2016 [facility] HEMATOLOGY Segs-Bands # 4.3 1.5 - 8.1 04/12/2016 [facility] HEMATOLOGY Lymphocytes # 2.1 1.0 - 5.5 04/12/2016 [facility] HEMATOLOGY Eosinophils 0.6 0.0 - 4.0 04/12/2016 [facility] HEMATOLOGY Monocytes 7.4 2.0 - 12.0 04/12/2016 [facility] HEMATOLOGY Lymphocytes 29.9 20.0 - 40.0 04/12/2016 [facility] HEMATOLOGY Segs 61.0 45.0 - 75.0 04/12/2016 [facility] URINE AND STOOL UA Trans Epi 9 <=0 /LPF 04/12/2016 [facility] URINE AND STOOL UA Color Ltyellow 04/12/2016 [facility] URINE AND STOOL UA Urobilinogen <=1.0 mg/dL 0.1 - 1.0 04/12/2016 [facility] URINE AND STOOL UA Renal Epi 60 <=0 /LPF 04/12/2016 [facility] URINE AND STOOL UA Amorph Adrianne Few /HPF None Seen /HPF 04/12/2016 [facility] URINE AND STOOL UA RBC 2 0 - 2 04/12/2016 [facility] URINE AND STOOL UA [place] Yeast Occasional /HPF None Seen /HPF 04/12/2016 [facility] URINE AND STOOL UA Spec Grav 1.012 <=1.030 04/12/2016 [facility] URINE AND STOOL UA Turbidity Clear (04/11/16 9:04 PM) Clear 04/12/2016 [facility] URINE AND STOOL UA Glucose Negative mg/dL Negative mg/dL 04/12/2016 [facility] URINE AND STOOL UA Protein Negative mg/dL Negative mg/dL 04/12/2016 [facility] URINE AND STOOL UA pH 7.0 5.0 - 8.0 04/12/2016 [facility] URINE AND STOOL UA Bili Negative *NA* (04/11/16 9:04 PM) Negative 04/12/2016 [facility] URINE AND STOOL UA Ketones Negative mg/dL Negative mg/dL 04/12/2016 [facility] URINE AND STOOL UA Leuk Est Small *ABN* (04/11/16 9:04 PM) Negative 04/12/2016 [facility] URINE AND STOOL UA Nitrite Negative (04/11/16 9:04 PM) Negative 04/12/2016 [facility] URINE AND STOOL UA Blood Negative (04/11/16 9:04 PM) Negative 04/12/2016 [facility] URINE AND STOOL UA Sq Epi Occasional /LPF Few /LPF 04/12/2016 [facility] URINE AND STOOL UA WBC 8 0 - 5 04/12/2016 [facility] URINE AND STOOL UA Color Ltyellow 04/06/2016 [facility] URINE AND STOOL UA Urobilinogen <=1.0 mg/dL 0.1 - 1.0 04/06/2016 [facility] URINE AND STOOL UA Blood Negative (04/06/16 12:00 AM) Negative 04/06/2016 [facility] URINE AND STOOL UA Nitrite Negative (04/06/16 12:00 AM) Negative 04/06/2016 [facility] URINE AND STOOL UA Ketones Trace mg/dL Negative mg/dL 04/06/2016 [facility] URINE AND STOOL UA Bili Negative *NA* (04/06/16 12:00 AM) Negative 04/06/2016 [facility] URINE AND STOOL UA RBC <1 0 - 2 04/06/2016 [facility] URINE AND STOOL UA WBC <1 0 - 5 04/06/2016 [facility] URINE AND STOOL UA Leuk Est Trace *ABN* (04/06/16 12:00 AM) Negative 04/06/2016 [facility] URINE AND STOOL UA Sq Epi Occasional /LPF Few /LPF 04/06/2016 [facility] URINE AND STOOL UA Glucose Negative mg/dL Negative mg/dL 04/06/2016 [facility] URINE AND STOOL UA pH 8.0 5.0 - 8.0 04/06/2016 [facility] URINE AND STOOL UA Protein Negative mg/dL Negative mg/dL 04/06/2016 [facility] URINE AND STOOL UA Spec Grav 1.003 <=1.030 04/06/2016 [facility] URINE AND STOOL UA Turbidity Clear (04/06/16 12:00 AM) Clear 04/06/2016 [facility] CHEM PANEL Lipase Lvl 147 73 - 393 04/06/2016 [facility] CHEM PANEL Amylase Lvl 37 25 - 115 04/06/2016 [facility] CHEM PANEL Globulin 3.4 2.7 - 4.2 04/06/2016 [facility] CHEM PANEL A/G Ratio 1.2 0.7 - 1.6 04/06/2016 [facility] CHEM PANEL B/C Ratio 21 6 - 25 04/06/2016 [facility] CHEM PANEL AGAP 11.0 10.0 - 20.0 04/06/2016 [facility] CHEM PANEL eGFR 113 04/06/2016 Result [...] should be multiplied by the estimated BMI. [facility] CHEM PANEL Total Protein 7.6 6.4 - 8.4 04/06/2016 [facility] CHEM PANEL Albumin Lvl 4.2 3.5 - 5.0 04/06/2016 [facility] CHEM PANEL ALT 30 0 - 65 04/06/2016 [facility] CHEM PANEL AST 10 0 - 37 04/06/2016 [facility] CHEM PANEL Calcium Lvl 9.1 8.5 - 10.5 04/06/2016 [facility] CHEM PANEL Alk Phos 75 39 - 136 04/06/2016 [facility] CHEM PANEL Bili Total 0.3 0.2 - 1.3 04/06/2016 [facility] CHEM PANEL Chloride Lvl 100 95 - 109 04/06/2016 [facility] CHEM PANEL Potassium Lvl 4.0 3.5 - 5.1 04/06/2016 [facility] CHEM PANEL CO2 30 24 - 32 04/06/2016 [facility] CHEM PANEL Sodium Lvl 137 135 - 145 04/06/2016 [facility] CHEM PANEL BUN 13 7 - 22 04/06/2016 [facility] CHEM PANEL Creatinine Lvl 0.63 0.50 - 1.40 04/06/2016 [facility] CHEM PANEL Glucose Lvl 93 70 - 99 04/06/2016 [facility] CHEM PANEL Phosphorus 3.2 2.5 - 4.5 04/06/2016 [facility] CHEM PANEL Magnesium Lvl 2.7 1.8 - 2.4 04/06/2016 [facility] ENDOCRINOLOGY S Preg Ne gative *NA* (04/05/16 8:21 PM) Negative 04/06/2016 [facility] HEMATOLOGY Lymphocytes 13.3 20.0 - 40.0 04/06/2016 [facility] HEMATOLOGY Segs 82.4 45.0 - 75.0 04/06/2016 [facility] HEMATOLOGY Segs-Bands # 8.6 1.5 - 8.1 04/06/2016 [facility] HEMATOLOGY Basophils 0.2 0.0 - 1.0 04/06/2016 [facility] HEMATOLOGY Monocytes 4.1 2.0 - 12.0 04/06/2016 [facility] HEMATOLOGY Monocytes # 0.4 0.0 - 0.8 04/06/2016 [facility] HEMATOLOGY Lymphocytes # 1.4 1.0 - 5.5 04/06/2016 [facility] HEMATOLOGY Platelet 420 133 - 450 04/06/2016 [facility] HEMATOLOGY MPV 8.8 7.4 - 10.4 04/06/2016 [facility] HEMATOLOGY RDW 15.9 11.5 - 14.5 04/06/2016 [facility] [place] MCH 29.4 27.0 - 31.0 04/06/2016 [facility] MCHC 32.4 32.0 - 36.0 04/06/2016 [facility] HEMATOLOGY Hct 33.5 36.0 - 48.0 04/06/2016 [facility] HEMATOLOGY MCV 90.6 80.0 - 98.0 04/06/2016 [facility] HEMATOLOGY Hgb 10.9 12.0 - 16.0 04/06/2016 [facility] HEMATOLOGY WBC 10.4 3.7 - 10.4 04/06/2016 [facility] HEMATOLOGY RBC 3.70 4.20 - 5.40 04/06/2016 [facility] URINE AND STOOL UA Urobilinogen <=1.0 mg/dL 0.1 - 1.0 03/03/2016 [facility] st URINE AND STOOL UA Color Ltyellow 03/03/2016 [facility] URINE AND STOOL UA Sq Epi Few /LPF Few /LPF 03/03/2016 [facility] URINE AND STOOL UA RBC 4 0 - 2 03/03/2016 [facility] URINE AND STOOL UA WBC 167 0 - 5 03/03/2016 [facility] URINE AND STOOL UA Renal Epi 17 <=0 /LPF 03/03/2016 [facility] URINE AND STOOL UA Bacteria Occasional /HPF None Seen /HPF 03/03/[address] [facility] [address] URINE AND STOOL UA Spec Grav 1.011 <=1.030 03/03/2016 [facility] URINE AND STOOL UA Turbidity Slight *ABN* (03/02/16 8:29 PM) Clear 03/03/2016 [facility] URINE AND STOOL UA Ketones Negative mg/dL Negative mg/dL 03/03/2016 [facility] URINE AND STOOL UA Blood Negative (03/02/16 8:29 PM) Negative 03/03/2016 [facility] URINE AND STOOL UA Protein Negative mg/dL Negative mg/dL 03/03/2016 [facility] URINE AND STOOL UA Bili Negative *NA* (03/02/16 8:29 PM) Negative 03/03/2016 [facility] URINE AND STOOL UA pH 5.0 5.0 - 8.0 03/03/2016 [facility] URINE AND STOOL UA Glucose Negative mg/dL Negative mg/dL 03/03/2016 [facility] URINE AND STOOL UA Leuk Est Large *ABN* (03/02/16 8:29 PM) Negative 03/03/2016 [facility] URINE AND STOOL UA Nitrite Negative (03/02/16 8:29 PM) Negative 03/03/2016 [facility] CHEM PANEL eGFR 114 03/03/2016 Result [...] should be multiplied by the estimated BMI. [facility] CHEM PANEL CO2 23 24 - 32 03/03/2016 [facility] CHEM PANEL Total Protein 7.1 6.4 - 8.4 03/03/2016 [facility] CHEM PANEL Calcium Lvl 8.8 8.5 - 10.5 03/03/2016 [facility] CHEM PANEL Sodium Lvl 140 135 [...] Bili Direct 0.1 0.0 - 0.3 03/03/2016 [facility] HEMATOLOGY Platelet 386 133 - 450 03/03/2016 [facility] HEMATOLOGY MPV 9.3 7.4 - 10.4 03/03/2016 [facility] HEMATOLOGY RDW 15.1 11.5 - 14.5 03/03/2016 [facility] HEMATOLOGY WBC 6.1 3.7 - 10.4 03/03/2016 [facility] HEMATOLOGY RBC 3.68 4.20 - 5.40 03/03/2016 [facility] HEMATOLOGY Hct 33.8 36.0 - 48.0 03/03/2016 [facility] HEMATOLOGY MCV 91.6 80.0 - 98.0 03/03/2016 [facility] HEMATOLOGY Hgb 11.2 12.0 - 16.0 03/03/2016 [facility] HEMATOLOGY MCHC 33.3 32.0 - 36.0 03/03/2016 [facility] HEMATOLOGY MCH 30.5 27.0 - 31.0 03/03/2016 [facility] HEMATOLOGY Monocytes # 0.5 0.0 - 0.8 03/03/2016 [facility] HEMATOLOGY Eosinophils # 0.2 0.0 - 0.5 03/03/2016 [facility] HEMATOLOGY Basophils # 0.1 0.0 - 0.2 03/03/2016 [facility] HEMATOLOGY Lymphocytes # 2.7 1.0 - 5.5 03/03/2016 [facility] HEMATOLOGY Basophils 0.9 0.0 - 1.0 03/03/2016 [facility] HEMATOLOGY Segs-Bands # 2.6 1.5 - 8.1 03/03/2016 [facility] [place] Monocytes 8.3 2.0 - 12.0 03/03/2016 [facility] HEMATOLOGY Segs 43.4 45.0 - 75.0 03/03/2016 [facility] HEMATOLOGY Eosinophils 3.5 0.0 - 4.0 03/03/2016 [facility] [place] Lymphocytes 43.9 20.0 - 40.0 03/03/2016 [facility] ELECTROLYTES Sodium Lvl 143 135 - 145 09/26/2014 [facility] ELECTROLYTES Chloride Lvl 107 95 - 109 09/26/2014 [facility] ELECTROLYTES Potassium Lvl 3.5 3.5 - 5.1 09/26/2014 [facility] ELECTROLYTES eGFR 110 09/26/2014 <sup>1</sup>Result Comment: [...] should be multiplied by the estimated BMI. [facility] ELECTROLYTES Glucose Lvl 82 70 - 99 09/26/2014 <sup>4</sup>Interpretive Data: Adult ref erence range values reflect the clinical guidelines
of the [place] [employer]. [facility] ELECTROLYTES CO2 27 24 - 32 09/26/2014 [facility] ELECTROLYTES Creatinine Lvl 0.7 0.5 - 1.4 09/26/2014 [facility] ELECTROLYTES AGAP 12.5 10.0 - 20.0 09/26/2014 [facility] ELECTROLYTES Calcium Lvl 7.9 8.5 - 10.5 09/26/2014 [facility] ELECTROLYTES BUN 6 7 - 22 09/26/2014 [facility] ELECTROLYTES Sodium Lvl 144 135 - 145 09/23/2014 [facility] ELECTROLYTES Chloride Lvl 107 95 - 109 09/23/2014 [facility] ELECTROLYTES Potassium Lvl 4.1 3.5 - 5.1 09/23/2014 [facility] ELECTROLYTES eGFR 94 09/23/2014 <sup>2</sup>Result Comment: [...] should be multiplied by the estimated BMI. [facility] ELECTROLYTES AST 29 0 - 37 09/23/2014 [facility] ELECTROLYTES Bili Total 0.3 0.2 - 1.3 09/23/2014 [facility] ELECTROLYTES Alk Phos 238 39 - 136 09/23/2014 [facility] ELECTROLYTES Albumin Lvl 3.4 3.5 - 5.0 09/23/2014 [facility] ELECTROLYTES ALT 122 0 - 65 09/23/2014 [facility] ELECTROLYTES Total Protein 5.6 6.4 - 8.4 09/23/2014 [facility] ELECTROLYTES Calcium Lvl 8.3 8.5 - 10.5 09/23/2014 [facility] ELECTROLYTES BUN 4 7 - 22 09/23/2014 [facility] ELECTROLYTES Glucose Lvl 62 70 - 99 09/23/2014 <sup>5</sup>Interpretive Data: Adult ref erence range values reflect the clinical guidelines
of the [place] [employer]. [facility] ELECTROLYTES Creatinine Lvl 0.8 0.5 - 1.4 09/23/2014 [facility] ELECTROLYTES CO2 29 24 - 32 09/23/2014 [facility] ELECTROLYTES AGAP 12.1 10.0 - 20.0 09/23/2014 [facility] ELECTROLYTES A/G Ratio 1.5 0.7 - 1.6 09/23/2014 [facility] ELECTROLYTES B/C Ratio 5 6 - 25 09/23/2014 [facility] ELECTROLYTES Globulin 2.2 2.0 - 4.0 09/23/2014 [facility] HEMATOLOGY Eosinophils # 0.7 0.0 - 0.5 09/23/2014 [facility] HEMATOLOGY Monocytes # 0.3 0.0 - 0.8 09/23/2014 [facility] HEMATOLOGY Lymphocytes # 1.5 1.0 - 5.5 09/23/2014 [facility] HEMATOLOGY Basophils 0.9 0.0 - 1.0 09/23/2014 [facility] HEMATOLOGY Eosinophils 17.0 0.0 - 4.0 09/23/2014 [facility] HEMATOLOGY Segs-Bands # 1.4 1.5 - 8.1 09/23/2014 [facility] HEMATOLOGY Monocytes 7.9 2.0 - 12.0 09/23/2014 [facility] HEMATOLOGY Lymphocytes 38.1 20.0 - 40.0 09/23/2014 [facility] HEMATOLOGY Segs 36.1 45.0 - 75.0 09/23/2014 [facility] [place] MCH 32.1 27.0 - 31.0 09/23/2014 [facility] [place] MCHC 33.5 32.0 - 36.0 09/23/2014 [facility] HEMATOLOGY MCV 95.9 80.0 - 98.0 09/23/2014 [facility] HEMATOLOGY Platelet 215 133 - 450 09/23/2014 [facility] HEMATOLOGY RDW 13.5 11.5 - 14.5 09/23/2014 [facility] HEMATOLOGY Hct 36.0 36.0 - 48.0 09/23/2014 [facility] [place] Hgb 12.0 12.0 - 16.0 09/23/2014 [facility] [place] RBC 3.75 4.20 - 5.40 09/23/2014 [facility] [place] MPV 10.2 7.4 - 10.4 09/23/2014 [facility] HEMATOLOGY WBC 3.8 3.7 - 10.4 09/23/2014 [facility] ELECTROLYTES AGAP 12.6 10.0 - 20.0 09/19/2014 [facility] ELECTROLYTES A/G Ratio 1.3 0.7 - 1.6 09/19/2014 [facility] ELECTROLYTES B/C Ratio 4 6 - 25 09/19/2014 [facility] ELECTROLYTES Globulin 2.2 2.0 - 4.0 09/19/2014 [facility] ELECTROLYTES Potassium Lvl 3.6 3.5 - 5.1 09/19/2014 [facility] ELECTROLYTES Chloride Lvl 111 95 - 109 09/19/2014 [facility] ELECTROLYTES Calcium Lvl 8.0 8.5 - 10.5 09/19/2014 [facility] ELECTROLYTES Creatinine Lvl 0.8 0.5 - 1.4 09/19/2014 [facility] ELECTROLYTES Sodium Lvl 144 135 - 145 09/19/2014 [facility] ELECTROLYTES eGFR 94 09/19/2014 <sup>3</sup>Result Comment: [...] should be multiplied by the estimated BMI. [facility] ELECTROLYTES Bili Total 0.3 0.2 - 1.3 09/19/2014 [facility] ELECTROLYTES Alk Phos 225 39 - 136 09/19/2014 [facility] ELECTROLYTES AST 32 0 - 37 09/19/2014 [facility] ELECTROLYTES Total Protein 5.1 6.4 - 8.4 09/19/2014 [facility] ELECTROLYTES Albumin Lvl 2.9 3.5 - 5.0 09/19/2014 [facility] ELECTROLYTES CO2 24 24 - 32 09/19/2014 [facility] ELECTROLYTES ALT 177 0 - 65 09/19/2014 [facility] ELECTROLYTES Glucose Lvl 97 70 - 99 09/19/2014 <sup>6</sup>Interpretive Data: Adult ref erence range values reflect the clinical guidelines
of the [place] [employer]. [facility] ELECTROLYTES BUN 3 7 - 22 09/19/2014 [facility] HEMATOLOGY Hgb 11.0 12.0 - 16.0 09/19/2014 [facility] [place] RBC 3.41 4.20 - 5.40 09/19/2014 [facility] HEMATOLOGY MCV 96.2 80.0 - 98.0 09/19/2014 [facility] HEMATOLOGY Hct 32.8 36.0 - 48.0 09/19/2014 [facility] [place] MCH 32.4 27.0 - 31.0 09/19/2014 [facility] [place] RDW 14.0 11.5 - 14.5 09/19/2014 [facility] [place] MPV 10.5 7.4 - 10.4 09/19/2014 [facility] [place] MCHC 33.7 32.0 - 36.0 09/19/2014 [facility] [place] Platelet 174 133 - 450 09/19/2014 [facility] WBC 4.1 3.7 - 10.4 09/19/2014 [facility] [place] Lymphocytes 51.5 20.0 - 40.0 09/19/2014 [facility] HEMATOLOGY Segs 27.2 45.0 - 75.0 09/19/2014 [facility] HEMATOLOGY Basophils 0.6 0.0 - 1.0 09/19/2014 [facility] [place] Eosinophils 13.5 0.0 - 4.0 09/19/2014 [facility] [place] Lymphocytes # 2.1 1.0 - 5.5 09/19/2014 [facility] [place] Monocytes # 0.3 0.0 - 0.8 09/19/2014 [facility] [place] Eosinophils # 0.6 0.0 - 0.5 09/19/2014 [facility] [place] Monocytes 7.2 2.0 - 12.0 09/19/2014 [facility] [place] Segs-Bands # 1.1 1.5 - 8.1 09/19/2014 [facility] CHEM PANEL Albumin Lvl 3.4 3.5 - 5.0 09/18/2014 [facility] CHEM PANEL Globulin 2.4 2.0 - 4.0 09/18/2014 [facility] CHEM PANEL A/G Ratio 1.4 0.7 - 1.6 09/18/2014 [facility] CHEM PANEL ALT 233 0 - 65 09/18/2014 [facility] CHEM PANEL AST 51 0 - 37 09/18/2014 [facility] CHEM PANEL Total Protein 5.8 6.4 - 8.4 09/18/2014 [facility] CHEM PANEL Alk Phos 237 39 - 136 09/18/2014 [facility] CHEM PANEL Bili Total 0.2 0.2 - 1.3 09/18/2014 [facility] CHEM PANEL B/C Ratio 5 6 - 25 09/18/2014 [facility] HEMATOLOGY Monocytes 7.1 2.0 - 12.0 09/16/2014 [facility] HEMATOLOGY Segs 16.2 45.0 - 75.0 09/16/2014 [facility] [place] Monocytes # 0.3 0.0 - 0.8 09/16/2014 [facility] HEMATOLOGY Basophils 0.8 0.0 - 1.0 09/16/2014 [facility] HEMATOLOGY Eosinophils 15.0 0.0 - 4.0 09/16/2014 [facility] [place] Lymphocytes 60.9 20.0 - 40.0 09/16/2014 [facility] [place] Lymphocytes # 2.5 1.0 - 5.5 09/16/2014 [facility] HEMATOLOGY Segs-Bands # 0.7 1.5 - 8.1 09/16/2014 [facility] [place] Eosinophils # 0.6 0.0 - 0.5 09/16/2014 [facility] [place] Plt Morph Ashlee l (09/16/14 5:00 AM) 09/16/2014 [facility] [place] RBC Morph Ashlee l (09/16/14 5:00 AM) 09/16/2014 [facility] [place] Platelet 185 133 - 450 09/16/2014 [facility] RDW 13.9 11.5 - 14.5 09/16/2014 [facility] [place] RBC 3.42 4.20 - 5.40 09/16/2014 [facility] [place] Hct 32.9 36.0 - 48.0 09/16/2014 [facility] [place] Hgb 11.1 12.0 - 16.0 09/16/2014 [facility] [place] MCH 32.3 27.0 - 31.0 09/16/2014 [facility] [place] MCHC 33.6 32.0 - 36.0 09/16/2014 [facility] [place] MCV 96.2 80.0 - 98.0 09/16/2014 [facility] [place] MPV 10.9 7.4 - 10.4 09/16/2014 [facility] HEMATOLOGY WBC 4.2 3.7 - 10.4 09/16/2014 [facility] CHEM PANEL Lipase Lvl 131 73 - 393 09/15/2014 [facility] CHEM PANEL Magnesium Lvl 1.8 1.8 - 2.4 09/14/2014 [facility] CHEM PANEL Phosphorus 3.9 2.5 - 4.5 09/14/2014 [facility] HEMATOLOGY PTT 31.6 22.9 - 35.8 09/14/2014 <sup>9</sup>Interpretive Data: Heparin T herapeutic Range: 57 - 92 Seconds [facility] HEMATOLOGY PT 14.2 12.0 - 14.7 09/14/2014 [facility] HEMATOLOGY INR 1.09 0.85 - 1.17 09/14/2014 <sup>7</sup>Interpretive Data: RECOMMEND ED RANGES FOR PROTIME INR:
2.0-3.0 for most medical and surgical thromboembolic states.
2.5-3.5 for artificial heart valves and recurrent embolism.

INR SHOULD BE USED ONLY FOR PATIENTS ON STABLE ANTICOAGULANT THERAPY. [facility] CARDIAC ENZYMES Total CK 113 12 - 191 09/14/2014 [facility] CHEM PANEL Magnesium Lvl 1.9 1.8 - 2.4 09/14/2014 [facility] CHEM PANEL Lipase Lvl 178 73 - 393 09/14/2014 [facility] CHEM PANEL Phosphorus 3.0 2.5 - 4.5 09/14/2014 [facility] CHEM PANEL Amylase Lvl 43 25 - 115 09/14/2014 [facility] HEMATOLOGY INR 0.97 0.85 - 1.17 09/14/2014 <sup>8</sup>Interpretive Data: RECOMMEND ED RANGES FOR PROTIME INR:
2.0-3.0 for most medical and surgical thromboembolic states.
2.5-3.5 for artificial heart valves and recurrent embolism.

INR SHOULD BE USED ONLY FOR PATIENTS ON STABLE ANTICOAGULANT THERAPY. [facility] HEMATOLOGY PT 12.9 12.0 - 14.7 09/14/2014 [facility] [place] PTT 33.0 22.9 - 35.8 09/14/2014 <sup>10</sup>Interpretive Data: Heparin Therapeutic Range: 57 - 92 Seconds [facility] URINE AND STOOL UA Color Ltyellow 09/14/2014 [facility] URINE AND STOOL UA Urobilinogen <=1.0 mg/dL 0.1 - 1.0 09/14/2014 [facility] URINE AND STOOL UA Nitrite Negative (09/13/14 11:03 PM) Negative 09/14/2014 [facility] URINE AND STOOL UA Leuk Est Negative (09/13/14 11:03 PM) Negative 09/14/2014 [facility] URINE AND STOOL UA Sq Epi Occasional /LPF Few /LPF 09/14/2014 [facility] URINE AND STOOL UA Protein Negative mg/dL Negative mg/dL 09/14/2014 [facility] URINE AND STOOL UA Glucose Negative mg/dL Negative mg/dL 09/14/2014 [facility] URINE AND STOOL UA Ketones Negative mg/dL Negative mg/dL 09/14/2014 [facility] URINE AND STOOL UA Bili Negative *NA* (09/13/14 11:03 PM) Negative 09/14/2014 [facility] URINE AND STOOL UA Blood Negative (09/13/14 11:03 PM) Negative 09/14/2014 [facility] URINE AND STOOL UA pH 5.0 5.0 - 8.0 09/14/2014 [facility] URINE AND STOOL UA Spec Grav 1.020 <=1.030 09/14/2014 [facility] URINE AND STOOL UA Turbidity Clear (09/13/14 11:03 PM) Clear 09/14/2014 [facility] ENDOCRINOLOGY hCG Tot 4 12/16/2013 <sup>7</sup>Interpretive [...] 8,175 - 55,868
18 8,099 - 58,176 [facility] CHEM PANEL B/C Ratio 14 6 - 25 12/16/2013 [facility] CHEM PANEL A/G Ratio 1.1 0.7 - 1.6 12/16/2013 [facility] CHEM PANEL Globulin 3.0 2.0 - 4.0 12/16/2013 [facility] CHEM PANEL AGAP 7.9 10.0 - 20.0 12/16/2013 [facility] CHEM PANEL eGFR 94 12/16/2013 <sup>1</sup>Result [...] should be multiplied by the estimated BMI. [facility] CHEM PANEL Bili Total <0.1 0.2 - 1.3 12/16/2013 [facility] CHEM PANEL Alk Phos 262 39 - 136 12/16/2013 [facility] CHEM PANEL Total Protein 6.4 6.4 - 8.4 12/16/2013 [facility] CHEM PANEL Albumin Lvl 3.4 3.5 - 5.0 12/16/2013 [facility] CHEM PANEL Creatinine Lvl 0.8 0.5 - 1.4 12/16/2013 [facility] CHEM PANEL BUN 11 7 - 22 12/16/2013 [facility] CHEM PANEL Chloride Lvl 107 95 - 109 12/16/2013 [facility] CHEM PANEL ALT 332 0 - 65 12/16/2013 [facility] CHEM PANEL AST 142 0 - 37 12/16/2013 [facility] CHEM PANEL Sodium Lvl 139 135 - 145 12/16/2013 [facility] CHEM PANEL Glucose Lvl 93 70 - 99 12/16/2013 <sup>4</sup>Interpretive Data: Adult ref erence range values reflect the clinical guidelines
of the [place] [employer]. [facility] CHEM PANEL Potassium Lvl 5.9 3.5 - 5.1 12/16/2013 [facility] CHEM PANEL Calcium Lvl 9.5 8.5 - 10.5 12/16/2013 [facility] CHEM PANEL CO2 30 24 - 32 12/16/2013 [facility] HEMATOLOGY Segs-Bands # 1.4 1.5 - 8.1 12/16/2013 [facility] HEMATOLOGY Lymphocytes # 2.1 1.0 - 5.5 12/16/2013 [facility] HEMATOLOGY Eosinophils # 0.3 0.0 - 0.5 12/16/2013 [facility] HEMATOLOGY Monocytes # 0.4 0.0 - 0.8 12/16/2013 [facility] HEMATOLOGY Segs 33.9 45.0 - 75.0 12/16/2013 [facility] HEMATOLOGY Monocytes 8.6 2.0 - 12.0 12/16/2013 [facility] HEMATOLOGY Eosinophils 6.6 0.0 - 4.0 12/16/2013 [facility] HEMATOLOGY Basophils 0.9 0.0 - 1.0 12/16/2013 [facility] HEMATOLOGY Lymphocytes 50.0 20.0 - 40.0 12/16/2013 [facility] HEMATOLOGY MPV 10.1 7.4 - 10.4 12/16/2013 [facility] HEMATOLOGY RDW 14.3 11.5 - 14.5 12/16/2013 [facility] HEMATOLOGY Platelet 233 133 - 450 12/16/2013 [facility] HEMATOLOGY MCV 98.1 81.0 - 99.0 12/16/2013 [facility] HEMATOLOGY MCH 32.5 27.0 - 31.0 12/16/2013 [facility] [place] MCHC 33.1 32.0 - 36.0 12/16/2013 [facility] HEMATOLOGY Hct 33.6 36.0 - 48.0 12/16/2013 [facility] HEMATOLOGY Hgb 11.1 12.0 - 16.0 12/16/2013 [facility] HEMATOLOGY RBC 3.43 4.20 - 5.40 12/16/2013 [facility] HEMATOLOGY WBC 4.2 3.7 - 10.4 12/16/2013 [facility] CHEM PANEL eGFR 94 12/15/2013 <sup>2</sup>Result [...] should be multiplied by the estimated BMI. [facility] CHEM PANEL Bili Total 0.2 0.2 - 1.3 12/15/2013 [facility] CHEM PANEL ALT 329 0 - 65 12/15/2013 [facility] CHEM PANEL Total Protein 6.7 6.4 - 8.4 12/15/2013 [facility] CHEM PANEL CO2 30 24 - 32 12/15/2013 [facility] CHEM PANEL Calcium Lvl 9.2 8.5 - 10.5 12/15/2013 [facility] CHEM PANEL Albumin Lvl 3.7 3.5 - 5.0 12/15/2013 [facility] CHEM PANEL AST 116 0 - 37 12/15/2013 [facility] CHEM PANEL Alk Phos 291 39 - 136 12/15/2013 [facility] CHEM PANEL Chloride Lvl 104 95 - 109 12/15/2013 [facility] CHEM PANEL Potassium Lvl 5.2 3.5 - 5.1 12/15/2013 [facility] CHEM PANEL BUN 13 7 - 22 12/15/2013 [facility] CHEM PANEL Glucose Lvl 77 70 - 99 12/15/2013 <sup>5</sup>Interpretive Data: Adult ref erence range values reflect the clinical guidelines
of the [place] [employer]. [facility] CHEM PANEL Sodium Lvl 140 135 - 145 12/15/2013 [facility] CHEM PANEL Creatinine Lvl 0.8 0.5 - 1.4 12/15/2013 [facility] CHEM PANEL B/C Ratio 16 6 - 25 12/15/2013 [facility] CHEM PANEL AGAP 11.2 10.0 - 20.0 12/15/2013 [facility] CHEM PANEL A/G Ratio 1.2 0.7 - 1.6 12/15/2013 [facility] CHEM PANEL Globulin 3.0 2.0 - 4.0 12/15/2013 [facility] HEMATOLOGY Eosinophils # 0.2 0.0 - 0.5 12/15/2013 [facility] HEMATOLOGY Monocytes # 0.3 0.0 - 0.8 12/15/2013 [facility] HEMATOLOGY Lymphocytes # 1.8 1.0 - 5.5 12/15/2013 [facility] HEMATOLOGY Basophils 0.9 0.0 - 1.0 12/15/2013 [facility] HEMATOLOGY Segs-Bands # 0.9 1.5 - 8.1 12/15/2013 [facility] HEMATOLOGY Eosinophils 6.9 0.0 - 4.0 12/15/2013 [facility] HEMATOLOGY Lymphocytes 56.8 20.0 - 40.0 12/15/2013 [facility] HEMATOLOGY Monocytes 8.3 2.0 - 12.0 12/15/2013 [facility] HEMATOLOGY Segs 27.1 45.0 - 75.0 12/15/2013 [facility] HEMATOLOGY Hgb 11.7 12.0 - 16.0 12/15/2013 [facility] HEMATOLOGY Hct 35.0 36.0 - 48.0 12/15/2013 [facility] HEMATOLOGY Platelet 208 133 - 450 12/15/2013 [facility] HEMATOLOGY RDW 13.9 11.5 - 14.5 12/15/2013 [facility] HEMATOLOGY MCHC 33.3 32.0 - 36.0 12/15/2013 [facility] HEMATOLOGY MPV 10.0 7.4 - 10.4 12/15/2013 [facility] [place] MCH 32.7 27.0 - 31.0 12/15/2013 [facility] HEMATOLOGY MCV 98.1 81.0 - 99.0 12/15/2013 [facility] HEMATOLOGY WBC 3.2 3.7 - 10.4 12/15/2013 [facility] HEMATOLOGY RBC 3.56 4.20 - 5.40 12/15/2013 [facility] HEMATOLOGY MCV 98.3 81.0 - 99.0 12/14/2013 [facility] [place] MCH 32.0 27.0 - 31.0 12/14/2013 [facility] [place] RBC 3.70 4.20 - 5.40 12/14/2013 [facility] [place] Hct 36.4 36.0 - 48.0 12/14/2013 [facility] [place] Hgb 11.9 12.0 - 16.0 12/14/2013 [facility] [place] WBC 5.0 3.7 - 10.4 12/14/2013 [facility] [place] MCHC 32.6 32.0 - 36.0 12/14/2013 [facility] [place] RDW 14.1 11.5 - 14.5 12/14/2013 [facility] [place] MPV 10.5 7.4 - 10.4 12/14/2013 [facility] [place] Platelet 219 133 - 450 12/14/2013 [facility] [place] Eosinophils # 0.3 0.0 - 0.5 12/14/2013 [facility] [place] Basophils 0.8 0.0 - 1.0 12/14/2013 [facility] [place] Lymphocytes # 3.2 1.0 - 5.5 12/14/2013 [facility] [place] Segs-Bands # 1.3 1.5 - 8.1 12/14/2013 [facility] [place] Monocytes # 0.2 0.0 - 0.8 12/14/2013 [facility] [place] Plt Morph Ashlee l (12/14/13 5:17 AM) 12/14/2013 [facility] Segs 25.5 45.0 - 75.0 12/14/2013 [facility] [place] Monocytes 4.1 2.0 - 12.0 12/14/2013 [facility] [place] Eosinophils 6.5 0.0 - 4.0 12/14/2013 [facility] [place] Lymphocytes 63.1 20.0 - 40.0 12/14/2013 [facility] [place] RBC Morph Ashlee l (12/14/13 5:17 AM) 12/14/2013 [facility] CHEM PANEL eGFR 111 12/13/2013 <sup>3</sup>Result [...] should be multiplied by the estimated BMI. [facility] CHEM PANEL Bili Total 0.2 0.2 - 1.3 12/13/2013 [facility] CHEM PANEL ALT 249 0 - 65 12/13/2013 [facility] CHEM PANEL Albumin Lvl 2.9 3.5 - 5.0 12/13/2013 [facility] CHEM PANEL Sodium Lvl 141 135 - 145 12/13/2013 [facility] CHEM PANEL BUN 11 7 - 22 12/13/2013 [facility] CHEM PANEL Creatinine Lvl 0.7 0.5 - 1.4 12/13/2013 [facility] CHEM PANEL CO2 27 24 - 32 12/13/2013 [facility] CHEM PANEL Calcium Lvl 8.2 8.5 - 10.5 12/13/2013 [facility] CHEM PANEL Total Protein 5.2 6.4 - 8.4 12/13/2013 [facility] CHEM PANEL AST 65 0 - 37 12/13/2013 [facility] CHEM PANEL Alk Phos 265 39 - 136 12/13/2013 [facility] CHEM PANEL Potassium Lvl 4.6 3.5 - 5.1 12/13/2013 [facility] CHEM PANEL Chloride Lvl 107 95 - 109 12/13/2013 [facility] CHEM PANEL Glucose Lvl 82 70 - 99 12/13/2013 <sup>6</sup>Interpretive Data: Adult ref erence range values reflect the clinical guidelines
of the [place] [employer]. [facility] CHEM PANEL B/C Ratio 16 6 - 25 12/13/2013 [facility] CHEM PANEL AGAP 11.6 10.0 - 20.0 12/13/2013 [facility] CHEM PANEL Globulin 2.3 2.0 - 4.0 12/13/2013 [facility] CHEM PANEL A/G Ratio 1.3 0.7 - 1.6 12/13/2013 [facility] ANEMIA STUDY Folate Lvl 10.8 >=3.0 ng/mL 12/13/2013 [facility] ANEMIA STUDY Vitamin B12 Lvl 295 254 - 1320 12/13/2013 [facility] ANEMIA STUDY Iron 114 30 - 160 12/13/2013 [facility] ANEMIA STUDY UIBC 260 110 - 370 12/13/2013 [facility] ANEMIA STUDY TIBC 374 228 - 428 12/13/2013 [facility] ANEMIA STUDY % Satur Fe 30 12 - 57 12/13/2013 [facility] ANEMIA STUDY Ferritin Lvl 25 5 - 204 12/13/2013 [facility] ANEMIA STUDY Ferritin Lvl 31 5 - 204 12/12/2013 [facility] HEMATOLOGY INR 0.95 0.85 - 1.17 12/12/2013 <sup>8</sup>Interpretive Data: RECOMMEND ED RANGES FOR PROTIME INR:
2.0-3.0 for most medical and surgical thromboembolic states.
2.5-3.5 for artificial heart valves and recurrent embolism.

INR SHOULD BE USED ONLY FOR PATIENTS ON STABLE ANTICOAGULANT THERAPY. [facility] HEMATOLOGY PT 12.6 12.0 - 14.7 12/12/2013 [facility] URINE AND STOOL UA Urobilinogen <=1.0 mg/dL 0.1 - 1.0 12/10/2013 [facility] URINE AND STOOL UA Color Ltyellow 12/10/2013 [facility] URINE AND STOOL UA Nitrite Negative (12/10/13 5:30 PM) Negative 12/10/2013 [facility] URINE AND STOOL UA Leuk Est Trace *ABN* (12/10/13 5:30 PM) Negative 12/10/2013 [facility] URINE AND STOOL UA Sq Epi Occasional /LPF Few /LPF 12/10/2013 [facility] URINE AND STOOL UA WBC 3 0 - 5 12/10/2013 [facility] URINE AND STOOL UA Spec Grav 1.004 <=1.030 12/10/2013 [facility] URINE AND STOOL UA Turbidity Clear (12/10/13 5:30 PM) Clear 12/10/2013 [facility] URINE AND STOOL UA pH 7.0 5.0 - 8.0 12/10/2013 [facility] URINE AND STOOL UA Bili Negative *NA* (12/10/13 5:30 PM) Negative 12/10/2013 [facility] URINE AND STOOL UA Ketones Negative mg/dL Negative mg/dL 12/10/2013 [facility] URINE AND STOOL UA Blood Negative (12/10/13 5:30 PM) Negative 12/10/2013 [facility] URINE AND STOOL UA Glucose Negative mg/dL Negative mg/dL 12/10/2013 [facility] URINE AND STOOL UA Protein Negative mg/dL Negative mg/dL 12/10/2013 [facility] CHEM PANEL Magnesium Lvl 1.9 1.8 - 2.4 12/10/2013 [facility] H pylori IgG <0.4 09/24/2013 <sup>3</sup>Interpretive Data: [...] it differentiate between active and past infection. [facility] URINE AND STOOL UA Color Ltyellow 09/19/2013 [facility] URINE AND STOOL UA Urobilinogen <=1.0 mg/dL 0.1 - 1.0 09/19/2013 [facility] URINE AND STOOL UA Spec Grav 1.008 <=1.030 09/19/2013 [facility] URINE AND STOOL UA Turbidity Clear (09/19/13 12:40 AM) Clear 09/19/2013 [facility] URINE AND STOOL UA Hyal Cast 6 0 - 2 09/19/2013 [facility] URINE AND STOOL UA Glucose Negative mg/dL Negative mg/dL 09/19/2013 [facility] URINE AND STOOL UA RBC <1 0 - 2 09/19/2013 [facility] URINE AND STOOL UA WBC 2 0 - 5 09/19/2013 [facility] URINE AND STOOL UA Blood Small *ABN* (09/19/13 12:40 AM) Negative 09/19/2013 [facility] URINE AND STOOL UA Ketones Trace mg/dL Negative mg/dL 09/19/2013 [facility] URINE AND STOOL UA Bili Negative *NA* (09/19/13 12:40 AM) Negative 09/19/2013 [facility] URINE AND STOOL UA Protein Negative mg/dL Negative mg/dL 09/19/2013 [facility] URINE AND STOOL UA pH 6.0 5.0 - 8.0 09/19/2013 [facility] URINE AND STOOL UA Sq Epi Occasional /LPF Few /LPF 09/19/2013 [facility] URINE AND STOOL UA Leuk Est Small *ABN* (09/19/13 12:40 AM) Negative 09/19/2013 [facility] URINE AND STOOL UA Nitrite Negative (09/19/13 12:40 AM) Negative 09/19/2013 [facility] CHEM PANEL A/G Ratio 1.3 0.7 - 1.6 09/19/2013 [facility] CHEM PANEL Globulin 3.1 2.0 - 4.0 09/19/2013 [facility] CHEM PANEL B/C Ratio 17 6 - 25 09/19/2013 [facility] CHEM PANEL AGAP 12.5 10.0 - 20.0 09/19/2013 [facility] CHEM PANEL eGFR 111 09/19/2013 <sup>1</sup>Result [...] should be multiplied by the estimated BMI. [facility] CHEM PANEL BUN 12 7 - 22 09/19/2013 [facility] CHEM PANEL Glucose Lvl 90 70 - 99 09/19/2013 <sup>2</sup>Interpretive Data: Adult ref erence range values reflect the clinical guidelines
of the [place] [employer]. [facility] CHEM PANEL Creatinine Lvl 0.7 0.5 - 1.4 09/19/2013 [facility] CHEM PANEL Bili Total 0.5 0.2 - 1.3 09/19/2013 [facility] CHEM PANEL AST 358 0 - 37 09/19/2013 [facility] CHEM PANEL Alk Phos 308 39 - 136 09/19/2013 [facility] CHEM PANEL Calcium Lvl 8.9 8.5 - 10.5 09/19/2013 [facility] CHEM PANEL CO2 25 24 - 32 09/19/2013 [facility] CHEM PANEL Albumin Lvl 4.0 3.5 - 5.0 09/19/2013 [facility] CHEM PANEL Total Protein 7.1 6.4 - 8.4 09/19/2013 [facility] CHEM PANEL ALT 330 0 - 65 09/19/2013 [facility] CHEM PANEL Potassium Lvl 3.5 3.5 - 5.1 09/19/2013 [facility] CHEM PANEL Sodium Lvl 136 135 - 145 09/19/2013 [facility] CHEM PANEL Chloride Lvl 102 95 - 109 09/19/2013 [facility] CHEM PANEL Magnesium Lvl 1.9 1.8 - 2.4 09/19/2013 [facility] HEMATOLOGY Platelet 300 133 - 450 09/19/2013 [facility] HEMATOLOGY MCHC 33.9 32.0 - 36.0 09/19/2013 [facility] [place] MCH 31.9 27.0 - 31.0 09/19/2013 [facility] HEMATOLOGY MPV 9.0 7.4 - 10.4 09/19/2013 [facility] HEMATOLOGY RDW 13.7 11.5 - 14.5 09/19/2013 [facility] HEMATOLOGY Hct 35.9 36.0 - 48.0 09/19/2013 [facility] HEMATOLOGY Hgb 12.2 12.0 - 16.0 09/19/2013 [facility] HEMATOLOGY RBC 3.81 4.20 - 5.40 09/19/2013 [facility] HEMATOLOGY MCV 94.2 81.0 - 99.0 09/19/2013 [facility] HEMATOLOGY WBC 5.8 3.7 - 10.4 09/19/2013 [facility] HEMATOLOGY Basophils 0.3 0.0 - 1.0 09/19/2013 [facility] HEMATOLOGY Monocytes 7.2 2.0 - 12.0 09/19/2013 [facility] HEMATOLOGY Segs-Bands # 3.4 1.5 - 8.1 09/19/2013 [facility] HEMATOLOGY Lymphocytes 30.1 20.0 - 40.0 09/19/2013 [facility] HEMATOLOGY Segs 58.4 45.0 - 75.0 09/19/2013 [facility] HEMATOLOGY Monocytes # 0.4 0.0 - 0.8 09/19/2013 [facility] HEMATOLOGY Lymphocytes # 1.7 1.0 - 5.5 09/19/2013 [facility] HEMATOLOGY Basophils # 0.0 0.0 - 0.2 09/19/2013 [facility] HEMATOLOGY Eosinophils # 0.2 0.0 - 0.5 09/19/2013 [facility] HEMATOLOGY Eosinophils 4.0 0.0 - 4.0 09/19/2013 [facility] CHEM PANEL eGFR 111 09/13/2013 <sup>3</sup>Result [...] should be multiplied by the estimated BMI. [facility] CHEM PANEL AGAP 12.9 10.0 - 20.0 09/13/2013 [facility] CHEM PANEL CO2 27 24 - 32 09/13/2013 [facility] CHEM PANEL Calcium Lvl 8.6 8.5 - 10.5 09/13/2013 [facility] CHEM PANEL Creatinine Lvl 0.7 0.5 - 1.4 09/13/2013 [facility] CHEM PANEL Chloride Lvl 105 95 - 109 09/13/2013 [facility] CHEM PANEL BUN 9 7 - 22 09/13/2013 [facility] CHEM PANEL Potassium Lvl 3.9 3.5 - 5.1 09/13/2013 [facility] CHEM PANEL Sodium Lvl 141 135 - 145 09/13/2013 [facility] CHEM PANEL Glucose Lvl 126 70 - 99 09/13/2013 <sup>6</sup>Interpretive Data: Adult ref erence range values reflect the clinical guidelines
of the [place] [employer]. [facility] ELECTROLYTES Potassium Lvl 3.6 3.5 - 5.1 09/13/2013 [facility] ANEMIA STUDY Iron 41 30 - 160 09/13/2013 [facility] ANEMIA STUDY TIBC 415 228 - 428 09/13/2013 [facility] ANEMIA STUDY % Satur Fe 10 12 - 57 09/13/2013 [facility] ANEMIA STUDY UIBC 374 110 - 370 09/13/2013 [facility] ANEMIA STUDY Vitamin B12 Lvl 158 254 - 1320 09/13/2013 [facility] BLOOD BANK RESULTS ABO/Rh O POS 09/13/2013 [facility] BLOOD BANK RESULTS Antibody Scrn Negative (09/12/13 9:45 PM) 09/13/2013 [facility] CHEM PANEL Bili Direct <0.1 0.0 - 0.3 09/13/2013 [facility] CHEM PANEL Magnesium Lvl 1.9 1.8 - 2.4 09/13/2013 [facility] CHEM PANEL Phosphorus 5.3 2.5 - 4.5 09/13/2013 [facility] CHEM PANEL Lipase Lvl 92 73 - 393 09/13/2013 [facility] CHEM PANEL Amylase Lvl 29 25 - 115 09/13/2013 [facility] CHEM PANEL Creatinine Lvl <0.1 mg/dL 0.5 - 1.4 09/13/2013 [facility] CHEM PANEL BUN 11 7 - 22 09/13/2013 [facility] CHEM PANEL Glucose Lvl 63 70 - 99 09/13/2013 <sup>7</sup>Interpretive Data: Adult ref erence range values reflect the clinical guidelines
of the [place] [employer]. [facility] CHEM PANEL Bili Total <0.1 mg/dL 0.2 - 1.3 09/13/2013 [facility] CHEM PANEL ASPARTATE TRANSAMINASE 82 0 - 37 09/13/2013 [facility] CHEM PANEL Alk Phos 225 39 - 136 09/13/2013 [facility] CHEM PANEL A/G Ratio 1.0 0.7 - 1.6 09/13/2013 [facility] CHEM PANEL ALANINE AMINOTRANSFERASE 119 0 - 65 09/13/2013 [facility] CHEM PANEL Globulin 4.0 2.0 - 4.0 09/13/2013 [facility] CHEM PANEL Albumin Lvl 3.9 3.5 - 5.0 09/13/2013 [facility] CHEM PANEL Calcium Lvl 8.6 8.5 - 10.5 09/13/2013 [facility] CHEM PANEL Total Protein 7.9 6.4 - 8.4 09/13/2013 [facility] CHEM PANEL AGAP 13.6 10.0 - 20.0 09/13/2013 [facility] CHEM PANEL CO2 30 24 - 32 09/13/2013 [facility] CHEM PANEL Chloride Lvl 101 95 - 109 09/13/2013 [facility] CHEM PANEL Potassium Lvl See N [...] is hemolyzed notified CHASE at 09/12/2013 22:42. [facility] CHEM PANEL Sodium Lvl 136 135 - 145 09/13/2013 [facility] CHEM PANEL B/C Ratio See N ote 5 (09/12/13 9:45 PM) 6 - 25 09/13/2013 <sup>5</sup>Result Comment: BUN/Cre is 110. Result may not be accurate. Redraw is recommended due to sample is hemolyzed. Notified Karen Haley at 09/12/2013 22:42 [facility] CHEM PANEL eGFR See N ote 4 (09/12/13 9:45 PM) 09/13/2013 <sup>4</sup>Result Comment: The eGFR result of 889 should be interpreted with caution due to Hemolyzed Sample. Report called to Silas Haley by CV at 09/12/2013 22:58. Recollection is recommended. Read Back Ok. [facility] HEMATOLOGY Retic Auto 1.1 0.5 - 1.5 09/13/2013 [facility] HEMATOLOGY Lymphocytes # 1.7 1.0 - 5.5 09/13/2013 [facility] HEMATOLOGY Basophils # 0.0 0.0 - 0.2 09/13/2013 [facility] HEMATOLOGY Eosinophils # 0.3 0.0 - 0.5 09/13/2013 [facility] HEMATOLOGY Monocytes # 0.3 0.0 - 0.8 09/13/2013 [facility] HEMATOLOGY Lymphocytes 37.3 20.0 - 40.0 09/13/2013 [facility] [place] Segs 48.8 45.0 - 75.0 09/13/2013 [facility] Plt Morph Ashlee l (09/12/13 9:45 PM) 09/13/2013 [facility] RBC Morph Ashlee l (09/12/13 9:45 PM) 09/13/2013 [facility] Segs-Bands # 2.3 1.5 - 8.1 09/13/2013 [facility] Basophils 0.8 0.0 - 1.0 09/13/2013 [facility] Eosinophils 7.1 0.0 - 4.0 09/13/2013 [facility] Monocytes 6.0 2.0 - 12.0 09/13/2013 [facility] PTT 30.3 22.9 - 35.8 09/13/2013 <sup>9</sup>Interpretive Data: Heparin T herapeutic Range: 57 - 92 Seconds [facility] INR 0.96 0.85 - 1.17 09/13/2013 <sup>8</sup>Interpretive Data: RECOMMEND ED RANGES FOR PROTIME INR:
2.0-3.0 for most medical and surgical thromboembolic states.
2.5-3.5 for artificial heart valves and recurrent embolism.

INR SHOULD BE USED ONLY FOR PATIENTS ON STABLE ANTICOAGULANT THERAPY. [facility] PT 12.7 12.0 - 14.7 09/13/2013 [facility] MPV 10.5 7.4 - 10.4 09/13/2013 [facility] Platelet 302 133 - 450 09/13/2013 [facility] RDW 14.4 11.5 - 14.5 09/13/2013 [facility] MCH 31.8 27.0 - 31.0 09/13/2013 [facility] MCV 96.0 81.0 - 99.0 09/13/2013 [facility] Hct 35.2 36.0 - 48.0 09/13/2013 [facility] WBC 4.7 3.7 - 10.4 09/13/2013 [facility] MCHC 33.1 32.0 - 36.0 09/13/2013 [facility] RBC 3.66 4.20 - 5.40 09/13/2013 [facility] Hgb 11.6 12.0 - 16.0 09/13/2013 [facility] URINE AND STOOL UA Urobilinogen <=1.0 mg/dL 0.1 - 1.0 09/12/2013 [facility] URINE AND STOOL UA Color Ltyellow 09/12/2013 [facility] URINE AND STOOL UA Turbidity Clear (09/12/13 5:35 PM) Clear 09/12/2013 [facility] URINE AND STOOL UA Spec Grav 1.006 <=1.030 09/12/2013 [facility] URINE AND STOOL UA Bili Negative *NA* (09/12/13 5:35 PM) Negative 09/12/2013 [facility] URINE AND STOOL UA Ketones Negative mg/dL Negative mg/dL 09/12/2013 [facility] URINE AND STOOL UA Sq Epi Occasional /LPF Few /LPF 09/12/2013 [facility] URINE AND STOOL UA Leuk Est Large *ABN* (09/12/13 5:35 PM) Negative 09/12/2013 [facility] URINE AND STOOL UA RBC <1 0 - 2 09/12/2013 [facility] URINE AND STOOL UA Glucose Negative mg/dL Negative mg/dL 09/12/2013 [facility] URINE AND STOOL UA Protein Negative mg/dL Negative mg/dL 09/12/2013 [facility] URINE AND STOOL UA pH 7.0 5.0 - 8.0 09/12/2013 [facility] URINE AND STOOL UA Nitrite Negative (09/12/13 5:35 PM) Negative 09/12/2013 [facility] URINE AND STOOL UA Blood Negative (09/12/13 5:35 PM) Negative 09/12/2013 [facility] URINE AND STOOL UA WBC 29 0 - 5 09/12/2013 [facility] URINE CHEM U Preg Negat jose maria (09/12/13 5:35 PM) Negative 09/12/2013 [facility] CHEM PANEL B/C Ratio 8 6 - 25 09/10/2013 [facility] CHEM PANEL Globulin 2.4 2.0 - 4.0 09/10/2013 [facility] CHEM PANEL A/G Ratio 1.2 0.7 - 1.6 09/10/2013 [facility] CHEM PANEL eGFR 117 09/10/2013 <sup>1</sup>Result [...] PANEL AGAP 10.7 10.0 - 20.0 09/10/2013 [facility] CHEM PANEL Alk Phos 199 39 [...] clinical guidelines
of the [place] [employer]. [facility] CHEM PANEL BUN 5 7 - 22 09/10/2013 [facility] CHEM PANEL Bili Direct <0.1 0.0 - 0.3 09/10/2013 [facility] CHEM PANEL Alk Phos 224 39 - 136 09/08/2013 [facility] CHEM PANEL AST 42 0 - 37 09/08/2013 [facility] CHEM PANEL ALT 136 0 - 65 09/08/2013 [facility] CHEM PANEL Bili Direct <0.1 0.0 - 0.3 09/08/2013 [facility] CHEM PANEL Bili Total 0.1 0.2 - 1.3 09/08/2013 [facility] CHEM PANEL Bili Indirect >0.0 0.0 - 1.0 09/08/2013 [facility] CHEM PANEL A/G Ratio 1.2 0.7 - 1.6 09/08/2013 [facility] CHEM PANEL Globulin 2.6 2.0 - 4.0 09/08/2013 [facility] CHEM PANEL Albumin Lvl 3.0 3.5 - 5.0 09/08/2013 [facility] CHEM PANEL Total Protein 5.6 6.4 - 8.4 09/08/2013 [facility] CHEM PANEL Alk Phos 268 39 - 136 09/07/2013 [facility] CHEM PANEL AST 31 0 - 37 09/07/2013 [facility] CHEM PANEL ALT 177 0 - 65 09/07/2013 [facility] CHEM PANEL Globulin 2.9 2.0 - 4.0 09/07/2013 [facility] CHEM PANEL A/G Ratio 1.2 0.7 - 1.6 09/07/2013 [facility] CHEM PANEL Bili Indirect >0.1 0.0 - 1.0 09/07/2013 [facility] CHEM PANEL Bili Total 0.2 0.2 - 1.3 09/07/2013 [facility] CHEM PANEL Bili Direct <0.1 0.0 - 0.3 09/07/2013 [facility] CHEM PANEL Total Protein 6.4 6.4 - 8.4 09/07/2013 [facility] CHEM PANEL Albumin Lvl 3.5 3.5 - 5.0 09/07/2013 [facility] CHEM PANEL Bili Indirect >0.2 0.0 - 1.0 09/06/2013 [facility] CHEM PANEL eGFR 117 09/04/2013 <sup>2</sup>Result [...] Sodium Lvl 141 135 - 145 09/04/2013 [facility] CHEM PANEL Glucose Lvl 73 70 - 99 09/04/2013 <sup>5</sup>Interpretive Data: Adult ref erence range values reflect the clinical guidelines
of the [place] [employer]. [facility] CHEM PANEL BUN 3 7 - 22 09/04/2013 [facility] CHEM PANEL Creatinine Lvl 0.6 0.5 - 1.4 09/04/2013 [facility] CHEM PANEL AGAP 11.1 10.0 - 20.0 09/04/2013 [facility] CHEM PANEL B/C Ratio 5 6 - 25 09/04/2013 [facility] CHEM PANEL Calcium Lvl 8.1 8.5 - 10.5 09/04/2013 [facility] CHEM PANEL Potassium Lvl 4.1 3.5 - 5.1 09/04/2013 [facility] CHEM PANEL CO2 25 24 - 32 09/04/2013 [facility] CHEM PANEL Chloride Lvl 109 95 - 109 09/04/2013 [facility] CHEM PANEL HSV 1 IgM NEGATIVE 09/04/2013 [facility] CHEM PANEL HSV 2 IgM NEGATIVE [...] its performance
characteristics have been determined by [employer]. Performance characteristics refer to
the analytical performance of the test.
Test Performed at:
[facility]
[address] [place] [address] Deni Meng MD [facility] CMV IgM 0.1 09/04/2013 <sup>10</sup>Interpretive Data: Reference Ranges:
Non-reactive: <0.9 S/CO Ratio
Indeterminate: 0.9 - 1.0 S/CO Ratio
Reactive: >=1.1 S/CO Ratio [facility] A-1-AT 129 83 - 199 09/04/2013 [facility] AMA Ab Scr Negat jose maria (09/04/13 5:28 AM) Negative 09/04/2013 [facility] SMA Screen Negat jose maria (09/04/13 5:28 AM) Negative 09/04/2013 [facility] LIVER KIDNEY MICROSOME AB S. <20.0 09/04/2013 [...] with
hepatitis C infection.
Test Performed at:
[facility]
[id number]
[place] [address] Néstor Gomez MD, PhD [facility] Ceruloplasmin 22 20 - 60 09/04/2013 [facility] CHEM PANEL eGFR 117 09/03/2013 <sup>3</sup>Result [...] should be multiplied by the estimated BMI. [facility] CHEM PANEL Chloride Lvl 112 95 - 109 09/03/2013 [facility] CHEM PANEL CO2 27 24 - 32 09/03/2013 [facility] CHEM PANEL Calcium Lvl 8.1 8.5 - 10.5 09/03/2013 [facility] CHEM PANEL BUN 6 7 - 22 09/03/2013 [facility] CHEM PANEL Sodium Lvl 141 135 - 145 09/03/2013 [facility] CHEM PANEL Creatinine Lvl 0.6 0.5 - 1.4 09/03/2013 [facility] CHEM PANEL Potassium Lvl 4.0 3.5 - 5.1 09/03/2013 [facility] CHEM PANEL Glucose Lvl 61 70 - 99 09/03/2013 <sup>6</sup>Interpretive Data: Adult ref erence range values reflect the clinical guidelines
of the [place] [employer]. [facility] CHEM PANEL AGAP 6.0 10.0 - 20.0 09/03/2013 [facility] CHEM PANEL B/C Ratio 10 6 - 25 09/03/2013 [facility] HEMATOLOGY Anisocyte 1+ *ABN* (09/03/13 6:34 AM) None Seen 09/03/2013 [facility] HEMATOLOGY Elliptocyte Sligh t *ABN* (09/03/13 6:34 AM) None Seen 09/03/2013 [facility] HEMATOLOGY Basophils # 0.0 0.0 - 0.2 09/03/2013 [facility] HEMATOLOGY Eosinophils # 0.2 0.0 - 0.5 09/03/2013 [facility] [place] Monocytes # 0.2 0.0 - 0.8 09/03/2013 [facility] Eosinophils 6.3 0.0 - 4.0 09/03/2013 [facility] [place] Basophils 1.0 0.0 - 1.0 09/03/2013 [facility] HEMATOLOGY Lymphocytes # 2.2 1.0 - 5.5 09/03/2013 [facility] HEMATOLOGY Segs-Bands # 0.7 1.5 - 8.1 09/03/2013 [facility] HEMATOLOGY Lymphocytes 64.7 20.0 - 40.0 09/03/2013 [facility] HEMATOLOGY Monocytes 5.8 2.0 - 12.0 09/03/2013 [facility] HEMATOLOGY Plt Morph Ashlee l (09/03/13 6:34 AM) 09/03/2013 [facility] HEMATOLOGY Segs 22.2 45.0 - 75.0 09/03/2013 [facility] HEMATOLOGY MPV 10.2 7.4 - 10.4 09/03/2013 [facility] HEMATOLOGY RBC 2.94 4.20 - 5.40 09/03/2013 [facility] HEMATOLOGY Hgb 9.6 12.0 - 16.0 09/03/2013 [facility] [place] Hct 28.0 36.0 - 48.0 09/03/2013 [facility] MCV 95.2 81.0 - 99.0 09/03/2013 [facility] MCH 32.5 27.0 - 31.0 09/03/2013 [facility] MCHC 34.2 32.0 - 36.0 09/03/2013 [facility] Platelet 195 133 - 450 09/03/2013 [facility] HEMATOLOGY RDW 14.2 11.5 - 14.5 09/03/2013 [facility] HEMATOLOGY WBC 3.4 3.7 - 10.4 09/03/2013 [facility] IMMUNOLOGY Hep B Core IgM Negat jose maria *NA* (09/03/13 6:34 AM) Negative 09/03/2013 [facility] IMMUNOLOGY Hep A IgM Negat jose maria *NA* (09/03/13 6:34 AM) Negative 09/03/2013 [facility] IMMUNOLOGY Hep Bs Ag Negat jose maria *NA* (09/03/13 6:34 AM) Negative 09/03/2013 [facility] IMMUNOLOGY Hep C Ab Negat josem aria *NA* (09/03/13 6:34 AM) Negative 09/03/2013 [facility] IMMUNOLOGY MARVIN Negat jose maria (09/03/13 6:34 AM) Negative 09/03/2013 [facility] CHEM PANEL Lipase Lvl 170 73 - 393 09/02/2013 <sup>8</sup>Result Comment: Collection d ate/time has been modified to: 00:53:00. Previous collection date/time: 00:53:00. [facility] CHEM PANEL Amylase Lvl 54 25 - 115 09/02/2013 <sup>7</sup>Result Comment: Collection d ate/time has been modified to: 00:53:00. Previous collection date/time: 00:53:00. [facility] HEMATOLOGY Segs 33.4 45.0 - 75.0 09/02/2013 <sup>22</sup>Result Comment: Collection date/time has been modified to: 00:53:00. Previous collection date/time: 00:53:00. [facility] HEMATOLOGY Monocytes 8.5 2.0 - 12.0 09/02/2013 <sup>24</sup>Result Comment: Collection date/time has been modified to: 00:53:00. Previous collection date/time: 00:53:00. [facility] HEMATOLOGY Lymphocytes 54.8 20.0 - 40.0 09/02/2013 <sup>23</sup>Result Comment: Collection date/time has been modified to: 00:53:00. Previous collection date/time: 00:53:00. [facility] HEMATOLOGY Eosinophils # 0.1 0.0 - 0.5 09/02/2013 <sup>30</sup>Result Comment: Collection date/time has been modified to: 00:53:00. Previous collection date/time: 00:53:00. [facility] HEMATOLOGY Basophils # 0.0 0.0 - 0.2 09/02/2013 <sup>31</sup>Result Comment: Collection date/time has been modified to: 00:53:00. Previous collection date/time: 00:53:00. [facility] HEMATOLOGY Segs-Bands # 1.7 1.5 - 8.1 09/02/2013 <sup>27</sup>Result Comment: Collection date/time has been modified to: 00:53:00. Previous collection date/time: 00:53:00. [facility] [place] Monocytes # 0.4 0.0 - 0.8 09/02/2013 <sup>29</sup>Result Comment: Collection date/time has been modified to: 00:53:00. Previous collection date/time: 00:53:00. [facility] [place] Basophils 0.5 0.0 - 1.0 09/02/2013 <sup>26</sup>Result Comment: Collection date/time has been modified to: 00:53:00. Previous collection date/time: 00:53:00. [facility] [place] Lymphocytes # 2.8 1.0 - 5.5 09/02/2013 <sup>28</sup>Result Comment: Collection date/time has been modified to: 00:53:00. Previous collection date/time: 00:53:00. [facility] [place] Eosinophils 2.8 0.0 - 4.0 09/02/2013 <sup>25</sup>Result Comment: Collection date/time has been modified to: 00:53:00. Previous collection date/time: 00:53:00. [facility] [place] MPV 10.2 7.4 - 10.4 09/02/2013 <sup>21</sup>Result Comment: Collection date/time has been modified to: 00:53:00. Previous collection date/time: 00:53:00. [facility] [place] Platelet 288 133 - 450 09/02/2013 <sup>20</sup>Result Comment: Collection date/time has been modified to: 00:53:00. Previous collection date/time: 00:53:00. [facility] [place] RBC 3.93 4.20 - 5.40 09/02/2013 <sup>13</sup>Result Comment: Collection date/time has been modified to: 00:53:00. Previous collection date/time: 00:53:00. [facility] [place] Hgb 12.5 12.0 - 16.0 09/02/2013 <sup>14</sup>Result Comment: Collection date/time has been modified to: 00:53:00. Previous collection date/time: 00:53:00. [facility] [place] WBC 5.0 3.7 - 10.4 09/02/2013 <sup>12</sup>Result Comment: Collection date/time has been modified to: 00:53:00. Previous collection date/time: 00:53:00. [facility] [place] MCHC 33.7 32.0 - 36.0 09/02/2013 <sup>18</sup>Result Comment: Collection date/time has been modified to: 00:53:00. Previous collection date/time: 00:53:00. [facility] [place] MCH 31.9 27.0 - 31.0 09/02/2013 <sup>17</sup>Result Comment: Collection date/time has been modified to: 00:53:00. Previous collection date/time: 00:53:00. [facility] [place] RDW 14.0 11.5 - 14.5 09/02/2013 <sup>19</sup>Result Comment: Collection date/time has been modified to: 00:53:00. Previous collection date/time: 00:53:00. [facility] [place] MCV 94.6 81.0 - 99.0 09/02/2013 <sup>16</sup>Result Comment: Collection date/time has been modified to: 00:53:00. Previous collection date/time: 00:53:00. [facility] [place] Hct 37.2 36.0 - 48.0 09/02/2013 <sup>15</sup>Result Comment: Collection date/time has been modified to: 00:53:00. Previous collection date/time: 00:53:00. [facility] URINE AND STOOL UA Sq Epi Occasional /LPF Few /LPF 09/02/2013 [facility] URINE AND STOOL UA Leuk Est Small *ABN* (09/01/13 11:24 PM) Negative 09/02/2013 [facility] URINE AND STOOL UA Blood Negative (09/01/13 11:24 PM) Negative 09/02/2013 [facility] URINE AND STOOL UA Bili Negative *NA* (09/01/13 11:24 PM) Negative 09/02/2013 [facility] URINE AND STOOL UA Ketones Negative mg/dL Negative mg/dL 09/02/2013 [facility] URINE AND STOOL UA pH 5.0 5.0 - 8.0 09/02/2013 [facility] URINE AND STOOL UA Nitrite Negative (09/01/13 11:24 PM) Negative 09/02/2013 [facility] URINE AND STOOL UA Protein Negative mg/dL Negative mg/dL 09/02/2013 [facility] URINE AND STOOL UA Glucose Negative mg/dL Negative mg/dL 09/02/2013 [facility] URINE AND STOOL UA WBC 8 0 - 5 09/02/2013 [facility] URINE AND STOOL UA RBC <1 0 - 2 09/02/2013 [facility] URINE AND STOOL UA Color Ltyellow 09/02/2013 [facility] URINE AND STOOL UA Urobilinogen <=1.0 mg/dL 0.1 - 1.0 09/02/2013 [facility] URINE AND STOOL UA Spec Grav 1.020 <=1.030 09/02/2013 [facility] URINE AND STOOL UA Turbidity Clear (09/01/13 11:24 PM) Clear 09/02/2013 [facility] URINE CHEM U Preg Negat jose maria (09/01/13 11:24 PM) Negative 09/02/2013 [facility] CHEM PANEL Calcium Lvl 8.9 8.5 - 10.5 09/01/2013 [facility] CHEM PANEL Bili Total 0.1 0.2 - 1.3 09/01/2013 [facility] CHEM PANEL eGFR 111 09/01/2013 <sup>1</sup>Result [...] should be multiplied by the estimated BMI. [facility] CHEM PANEL AST 219 0 - 37 09/01/2013 [facility] CHEM PANEL Total Protein 6.9 6.4 - 8.4 09/01/2013 [facility] CHEM PANEL CO2 25 24 - 32 09/01/2013 [facility] CHEM PANEL Chloride Lvl 105 95 - 109 09/01/2013 [facility] CHEM PANEL Creatinine Lvl 0.7 0.5 - 1.4 09/01/2013 [facility] CHEM PANEL Sodium Lvl 139 135 - 145 09/01/2013 [facility] CHEM PANEL Potassium Lvl 3.4 3.5 - 5.1 09/01/2013 [facility] CHEM PANEL BUN 12 7 - 22 09/01/2013 [facility] CHEM PANEL ALT 535 0 - 65 09/01/2013 [facility] CHEM PANEL Glucose Lvl 95 70 - 99 09/01/2013 <sup>2</sup>Interpretive Data: Adult ref erence range values reflect the clinical guidelines
of the [place] [employer]. [facility] CHEM PANEL Albumin Lvl 3.8 3.5 - 5.0 09/01/2013 [facility] CHEM PANEL Alk Phos 314 39 - 136 09/01/2013 [facility] CHEM PANEL B/C Ratio 17 6 - 25 09/01/2013 [facility] CHEM PANEL A/G Ratio 1.2 0.7 - 1.6 09/01/2013 [facility] CHEM PANEL Globulin 3.1 2.0 - 4.0 09/01/2013 [facility] CHEM PANEL AGAP 12.4 10.0 - 20.0 09/01/2013 [facility] HEMATOLOGY Eosinophils # 0.2 0.0 - 0.5 09/01/2013 [facility] HEMATOLOGY Basophils # 0.0 0.0 - 0.2 09/01/2013 [facility] HEMATOLOGY Basophils 0.7 0.0 - 1.0 09/01/2013 [facility] HEMATOLOGY Lymphocytes # 2.1 1.0 - 5.5 09/01/2013 [facility] HEMATOLOGY Segs-Bands # 0.5 1.5 - 8.1 09/01/2013 [facility] HEMATOLOGY Monocytes # 0.2 0.0 - 0.8 09/01/2013 [facility] HEMATOLOGY Lymphocytes 66.6 20.0 - 40.0 09/01/2013 [facility] HEMATOLOGY Segs 16.9 45.0 - 75.0 09/01/2013 [facility] HEMATOLOGY Monocytes 8.1 2.0 - 12.0 09/01/2013 [facility] HEMATOLOGY Eosinophils 7.7 0.0 - 4.0 09/01/2013 [facility] [place] MCHC 33.6 32.0 - 36.0 09/01/2013 [facility] [place] MCH 31.7 27.0 - 31.0 09/01/2013 [facility] HEMATOLOGY Platelet 263 133 - 450 09/01/2013 [facility] HEMATOLOGY RDW 13.7 11.5 - 14.5 09/01/2013 [facility] HEMATOLOGY Hgb 11.4 12.0 - 16.0 09/01/2013 [facility] HEMATOLOGY RBC 3.58 4.20 - 5.40 09/01/2013 [facility] [place] Hct 33.8 36.0 - 48.0 09/01/2013 [facility] HEMATOLOGY MCV 94.3 81.0 - 99.0 09/01/2013 [facility] HEMATOLOGY MPV 10.1 7.4 - 10.4 09/01/2013 [facility] HEMATOLOGY WBC 3.1 3.7 - 10.4 09/01/2013 [facility] IMMUNOLOGY CDC HIV 4th GEN Negat jose maria (09/01/13 12:53 AM) Negative 09/01/2013 [facility] URINE AND STOOL UA Color Ltyellow 09/01/2013 [facility] URINE AND STOOL UA Urobilinogen <=1.0 mg/dL 0.1 - 1.0 09/01/2013 [facility] URINE AND STOOL UA WBC 1 0 - 5 09/01/2013 [facility] URINE AND STOOL UA RBC 1 0 - 2 09/01/2013 [facility] URINE AND STOOL UA Sq Epi Occasional /LPF Few /LPF 09/01/2013 [facility] URINE AND STOOL UA Glucose Negative mg/dL Negative mg/dL 09/01/2013 [facility] URINE AND STOOL UA Ketones Negative mg/dL Negative mg/dL 09/01/2013 [facility] URINE AND STOOL UA pH 5.0 5.0 - 8.0 09/01/2013 [facility] URINE AND STOOL UA Protein Negative mg/dL Negative mg/dL 09/01/2013 [facility] URINE AND STOOL UA Bili Negative *NA* (08/31/13 11:50 PM) Negative 09/01/2013 [facility] URINE AND STOOL UA Nitrite Negative (08/31/13 11:50 PM) Negative 09/01/2013 [facility] URINE AND STOOL UA Leuk Est Trace *ABN* (08/31/13 11:50 PM) Negative 09/01/2013 [facility] URINE AND STOOL UA Blood Negative (08/31/13 11:50 PM) Negative 09/01/2013 [facility] URINE AND STOOL UA Turbidity Clear (08/31/13 11:50 PM) Clear 09/01/2013 [facility] URINE AND STOOL UA Spec Grav 1.014 <=1.030 09/01/2013 [facility] URINE CHEM U Preg Negat jose maria (08/31/13 11:50 PM) Negative 09/01/2013 [facility] URINALYSIS UA Bacteria Occas ional /HPF None Seen 06/06/2013 [facility] URINALYSIS UA RBC 1 0 - 2 06/06/2013 Normal [facility] URINALYSIS UA Urobilinogen <=1.0 mg/dL 0.1 - 1.0 06/06/2013 [facility] URINALYSIS UA Color Ltyellow 06/06/2013 [facility] URINALYSIS UA Turbidity Clear (06/05/2013 20:57:00) Clear 06/06/2013 Normal [facility] URINALYSIS UA Spec Grav 1.005 <=1.030 06/06/2013 Normal [facility] URINALYSIS UA pH 7.0 5.0 - 8.0 06/06/2013 Normal [facility] URINALYSIS UA Protein Negat jose maria [...] *ABN* (06/05/2013 20:57:00) Negati ve 06/06/2013 ABN [facility] URINALYSIS UA Sq Epi Occas ional /LPF Few 06/06/2013 [facility] VIRAL - SEROLOGY Influ A Negative (06/05/2013 20:41:00) Negati ve 06/06/2013 Normal [facility] VIRAL - SEROLOGY Influ B Negative [...] either viral culture or PCR is warranted. [facility] CHEMISTRY Magnesium Lvl 2.0 1.8 - 2.4 06/06/2013 Normal [facility] CHEMISTRY eGFR 94 06/06/2013 <sup>2</sup>Result Comment: [...] should be multiplied by the estimated BMI. [facility] CHEMISTRY ASPARTATE TRANSAMINASE 18 0 - 37 06/06/2013 Normal [facility] CHEMISTRY Potassium Lvl 3.6 3.5 - 5.1 06/06/2013 Normal [facility] CHEMISTRY CO2 30 24 - 32 06/06/2013 Normal [facility] CHEMISTRY Chloride Lvl 106 95 - 109 06/06/2013 Normal [facility] CHEMISTRY ALANINE AMINOTRANSFERASE 5 2 0 - 65 06/06/2013 Normal [facility] CHEMISTRY Albumin Lvl 3.9 3.5 - 5.0 06/06/2013 Normal [facility] CHEMISTRY Calcium Lvl 8.7 8.5 - 10.5 06/06/2013 Normal [facility] CHEMISTRY Sodium Lvl 142 135 - 145 06/06/2013 Normal [facility] CHEMISTRY Creatinine Lvl 0.8 0.5 - 1.4 06/06/2013 Normal [facility] CHEMISTRY Glucose Lvl 106 70 - 99 06/06/2013 [facility] <sup>3</sup>Interpretive Data: Adult ref erence range values reflect the clinical guidelines
of the [place] [employer]. [facility] CHEMISTRY BUN 15 7 - 22 06/06/2013 Normal [facility] CHEMISTRY Alk Phos 139 39 - 136 06/06/2013 HI [facility] CHEMISTRY Bili Total 0.2 0.2 - 1.3 06/06/2013 Normal [facility] CHEMISTRY Total Protein 7.3 6.4 - 8.4 06/06/2013 Normal [facility] CHEMISTRY B/C Ratio 19 6 - 25 06/06/2013 Normal [facility] CHEMISTRY AGAP 9.6 10.0 - 20.0 06/06/2013 LOW [facility] CHEMISTRY Globulin 3.4 2.0 - 4.0 06/06/2013 Normal [facility] CHEMISTRY A/G Ratio 1.1 0.7 - 1.6 06/06/2013 Normal [facility] HEMATOLOGY Sed Rate 25 0 - 20 06/06/2013 HI [facility] HEMATOLOGY MCV 94.2 81.0 - 99.0 06/06/2013 Normal [facility] HEMATOLOGY MCHC 32.7 32.0 - 36.0 06/06/2013 Normal [facility] HEMATOLOGY MCH 30.8 27.0 - 31.0 06/06/2013 Normal [facility] HEMATOLOGY RDW 14.2 11.5 - 14.5 06/06/2013 Normal [facility] HEMATOLOGY MPV 9.0 7.4 - 10.4 06/06/2013 Normal [facility] HEMATOLOGY Platelet 317 133 - 450 06/06/2013 Normal [facility] HEMATOLOGY Hgb 12.0 12.0 - 16.0 06/06/2013 Normal [facility] HEMATOLOGY Hct 36.7 36.0 - 48.0 06/06/2013 Normal [facility] HEMATOLOGY RBC X 10x6 3.89 4.20 - 5.40 06/06/2013 LOW [facility] HEMATOLOGY WBC X 10x3 4.2 3.7 - 10.4 06/06/2013 Normal [facility] HEMATOLOGY Lymphocytes # 1.9 1.0 - 5.5 06/06/2013 Normal [facility] HEMATOLOGY Basophils # 0.0 0.0 - 0.2 06/06/2013 Normal [facility] HEMATOLOGY Monocytes # 0.3 0.0 - 0.8 06/06/2013 Normal [facility] HEMATOLOGY Segs 43.2 45.0 - 75.0 06/06/2013 [facility] HEMATOLOGY Eosinophils 2.4 0.0 - 4.0 06/06/2013 Normal [facility] HEMATOLOGY Eosinophils # 0.1 0.0 - 0.5 06/06/2013 Normal [facility] HEMATOLOGY Segs-Bands # 1.8 1.5 - 8.1 06/06/2013 Normal [facility] HEMATOLOGY Basophils 0.7 0.0 - 1.0 06/06/2013 Normal [facility] HEMATOLOGY Monocytes 6.8 2.0 - 12.0 06/06/2013 Normal [facility] HEMATOLOGY Lymphocytes 46.9 20.0 - 40.0 06/06/2013 [facility] CHEMISTRY CK MB Index <0.6 0.0 - 2.5 02/12/2013 Normal [facility] CHEMISTRY Troponin-I <0.02 0.00 - 0.40 02/12/2013 Normal [facility] CHEMISTRY CK MB <0.5 0.5 - 3.6 02/12/2013 Normal [facility] CHEMISTRY Total CK 88 12 - 191 02/12/2013 Normal [facility] CHEMISTRY CK MB Index <0.6 0.0 - 2.5 02/12/2013 Normal [facility] CHEMISTRY Troponin-I <0.02 0.00 - 0.40 02/12/2013 Normal [facility] CHEMISTRY Total CK 86 12 - 191 02/12/2013 Normal [facility] CHEMISTRY CK MB <0.5 0.5 - 3.6 02/12/2013 Normal [facility] CHEMISTRY eGFR 94 02/12/2013 NA <sup>1</sup>Result [...] should be multiplied by the estimated BMI. [facility] CHEMISTRY Globulin 3.3 2.0 - 4.0 02/12/2013 Normal [facility] CHEMISTRY A/G Ratio 1.3 0.7 - 1.6 02/12/2013 Normal [facility] CHEMISTRY B/C Ratio 15 6 - 25 02/12/2013 Normal [facility] CHEMISTRY AGAP 12.8 10.0 - 20.0 02/12/2013 Normal [facility] CHEMISTRY Alk Phos 152 39 - 136 02/12/2013 HI [facility] CHEMISTRY Bili Total 0.3 0.2 - 1.3 02/12/2013 Normal [facility] CHEMISTRY AST 14 0 - 37 02/12/2013 Normal [facility] CHEMISTRY Creatinine Lvl 0.8 0.5 - 1.4 02/12/2013 Normal [facility] CHEMISTRY Glucose Lvl 81 70 - 99 02/12/2013 Normal <sup>2</sup>Interpretive Data: Adult ref erence range values reflect the clinical guidelines
of the [place] [employer]. [facility] CHEMISTRY BUN 12 7 - 22 02/12/2013 Normal [facility] CHEMISTRY Total Protein 7.6 6.4 - 8.4 02/12/2013 Normal [facility] CHEMISTRY Albumin Lvl 4.3 3.5 - 5.0 02/12/2013 Normal [facility] CHEMISTRY CO2 28 24 - 32 02/12/2013 Normal [facility] CHEMISTRY Calcium Lvl 9.8 8.5 - 10.5 02/12/2013 Normal [facility] CHEMISTRY ALT 50 0 - 65 02/12/2013 Normal [facility] CHEMISTRY Chloride Lvl 106 95 - 109 02/12/2013 Normal [facility] CHEMISTRY Sodium Lvl 143 135 - 145 02/12/2013 Normal [facility] CHEMISTRY Potassium Lvl 3.8 3.5 - 5.1 02/12/2013 Normal [facility] HEMATOLOGY Basophils # 0.0 0.0 - 0.2 02/12/2013 Normal [facility] HEMATOLOGY Eosinophils # 0.1 0.0 - 0.5 02/12/2013 Normal [facility] HEMATOLOGY Eosinophils 2.2 0.0 - 4.0 02/12/2013 Normal [facility] HEMATOLOGY Lymphocytes # 1.9 1.0 - 5.5 02/12/2013 Normal [facility] HEMATOLOGY Monocytes # 0.3 0.0 - 0.8 02/12/2013 Normal [facility] HEMATOLOGY Monocytes 7.1 2.0 - 12.0 02/12/2013 Normal [facility] HEMATOLOGY Basophils 0.6 0.0 - 1.0 02/12/2013 Normal [facility] HEMATOLOGY Segs-Bands # 1.9 1.5 - 8.1 02/12/2013 Normal [facility] HEMATOLOGY Lymphocytes 44.8 20.0 - 40.0 02/12/2013 [facility] HEMATOLOGY Segs 45.3 45.0 - 75.0 02/12/2013 Normal [facility] HEMATOLOGY MCHC 32.6 32.0 - 36.0 02/12/2013 Normal [facility] HEMATOLOGY MCH 31.0 27.0 - 31.0 02/12/2013 Normal [facility] HEMATOLOGY RDW 14.3 11.5 - 14.5 02/12/2013 Normal [facility] HEMATOLOGY Platelet 324 133 - 450 02/12/2013 Normal [facility] HEMATOLOGY MPV 10.0 7.4 - 10.4 02/12/2013 Normal [facility] HEMATOLOGY WBC 4.3 3.7 - 10.4 02/12/2013 Normal [facility] HEMATOLOGY Hgb 12.5 12.0 - 16.0 02/12/2013 Normal [facility] HEMATOLOGY Hct 38.2 36.0 - 48.0 02/12/2013 Normal [facility] HEMATOLOGY MCV 95.1 81.0 - 99.0 02/12/2013 Normal [facility] HEMATOLOGY RBC 4.02 4.20 - 5.40 02/12/2013 LOW [facility] URINALYSIS UA Color Ltyellow 02/12/2013 NA [facility] URINALYSIS UA Urobilinogen 0.1 - 1.0 02/12/2013 NA [facility] URINALYSIS UA Sq Epi Occas ional /LPF *NA* (02/11/2013 20:54:00) Few 02/12/2013 [facility] URINALYSIS UA Bacteria Few / HPF *NA* (02/11/2013 20:54:00) None S een 02/12/2013 [facility] URINALYSIS UA WBC 7 0 [...] maria (02/11/2013 20:54:00) Negati ve 02/12/2013 Normal [facility] URINALYSIS UA Leuk Est Large *ABN* (02/11/2013 20:54:00) Negati ve 02/12/2013 ABN [facility] URINALYSIS UA Nitrite Negat jose maria (02/11/2013 20:54:00) Negati ve 02/12/2013 Normal [facility] URINALYSIS UA Protein Negat jose maria mg/dL (02/11/2013 20:54:00) Negati ve 02/12/2013 Normal [facility] URINALYSIS UA Turbidity Clear (02/11/2013 20:54:00) Clear 02/12/2013 Normal [facility] URINALYSIS UA pH 5.0 5.0 - 8.0 02/12/2013 Normal [facility] URINALYSIS UA RBC 0-2 / HPF (09/28/2012 00:45:00) 0 - 2 09/28/2012 Normal [facility] URINALYSIS Micro? Perfo rmed (09/28/2012 00:45:00) 09/28/2012 Normal [facility] URINALYSIS UA Leuk Est Small *ABN* (09/28/2012 00:45:00) Negati ve 09/28/2012 ABN [facility] URINALYSIS UA Bacteria Few / HPF (09/28/2012 00:45:00) None S een 09/28/2012 Normal [facility] URINALYSIS UA WBC 6-10 /HPF *ABN* (09/28/2012 00:45:00) None S een 09/28/2012 ABN [facility] URINALYSIS UA Sq Epi Few / LPF (09/28/2012 00:45:00) Few 09/28/2012 Normal [facility] URINALYSIS UA Protein Negat jose maria (09/28/2012 00:45:00) Negati ve 09/28/2012 Normal [facility] URINALYSIS UA Urobilinogen 0.2 0.1 - 1.0 09/28/2012 Normal [facility] URINALYSIS UA Blood Negat jose maria (09/28/2012 00:45:00) Negati ve 09/28/2012 Normal [facility] URINALYSIS UA Nitrite Negat jose maria (09/28/2012 00:45:00) Negati ve 09/28/2012 Normal [facility] URINALYSIS UA Ketones Negat jose maria *NA* (09/28/2012 00:45:00) Negati ve 09/28/2012 NA [facility] URINALYSIS UA pH 6.0 5.0 - 8.0 09/28/2012 Normal [facility] URINALYSIS UA Bili Negat jose maria *NA* (09/28/2012 00:45:00) Negati ve 09/28/2012 NA [facility] URINALYSIS UA Mucus Moder ate /LPF *ABN* (09/28/2012 00:45:00) None S een 09/28/2012 ABN [facility] URINALYSIS UA Glucose Negat jose maria (09/28/2012 00:45:00) Negati ve 09/28/2012 Normal [facility] URINALYSIS UA Spec Grav 1.020 <=1.030 09/28/2012 Normal [facility] URINALYSIS UA Turbidity Sligh t Cloudy (09/28/2012 00:45:00) Clear 09/28/2012 Normal [facility] URINALYSIS UA Color Yello w *NA* (09/28/2012 00:45:00) Yellow 09/28/2012 NA [facility] CHEMISTRY Phosphorus 4.3 2.5 - 4.5 09/28/2012 Normal [facility] CHEMISTRY Magnesium Lvl 1.7 1.8 - 2.4 09/28/2012 LOW [facility] CHEMISTRY eGFR 95 09/28/2012 NA [...] should be multiplied by the estimated BMI. [facility] CHEMISTRY BUN 12 7 - 22 09/28/2012 Normal [facility] CHEMISTRY Glucose Lvl 94 70 - 99 09/28/2012 Normal <sup>2</sup>Interpretive Data: Adult ref erence range values reflect the clinical guidelines
of the [place] [employer]. [facility] CHEMISTRY CO2 31 24 - 32 09/28/2012 Normal [facility] CHEMISTRY Sodium Lvl 143 135 - 145 09/28/2012 Normal [facility] CHEMISTRY Creatinine Lvl 0.8 0.5 - 1.4 09/28/2012 Normal [facility] CHEMISTRY Chloride Lvl 105 95 - 109 09/28/2012 Normal [facility] CHEMISTRY Potassium Lvl 4.6 3.5 - 5.1 09/28/2012 Normal [facility] CHEMISTRY Calcium Lvl 9.7 8.5 - 10.5 09/28/2012 Normal [facility] CHEMISTRY AGAP 11.6 10.0 - 20.0 09/28/2012 Normal [facility] HEMATOLOGY Basophils # 0.1 0.0 - 0.2 09/28/2012 Normal [facility] HEMATOLOGY Monocytes # 0.3 0.0 - 0.8 09/28/2012 Normal [facility] HEMATOLOGY Eosinophils # 0.1 0.0 - 0.5 09/28/2012 Normal [facility] HEMATOLOGY Monocytes 6.6 2.0 - 12.0 09/28/2012 [facility] HEMATOLOGY Lymphocytes 44.0 20.0 - 40.0 09/28/2012 [facility] HEMATOLOGY Segs 46.4 45.0 - 75.0 09/28/2012 Normal [facility] HEMATOLOGY Lymphocytes # 2.1 1.0 - 5.5 09/28/2012 Normal [facility] HEMATOLOGY Eosinophils 1.3 0.0 - 4.0 09/28/2012 Normal [facility] HEMATOLOGY Basophils 1.7 0.0 - 1.0 09/28/2012 [facility] HEMATOLOGY Segs-Bands # 2.1 1.5 - 8.1 09/28/2012 Normal [facility] HEMATOLOGY MCV 95.6 81.0 - 99.0 09/28/2012 Normal [facility] HEMATOLOGY RBC 3.79 4.20 - 5.40 09/28/2012 LOW [facility] HEMATOLOGY Hgb 12.2 12.0 - 16.0 09/28/2012 Normal [facility] HEMATOLOGY Hct 36.2 36.0 - 48.0 09/28/2012 Normal [facility] HEMATOLOGY WBC 4.7 3.7 - 10.4 09/28/2012 Normal [facility] [facility]EM[facility]Y MPV 9.5 7.4 - 10.4 09/28/2012 Normal [facility] HEMATOLOGY RDW 13.1 11.5 - 14.5 09/28/2012 Normal [facility] HEMATOLOGY Platelet 313 133 - 450 09/28/2012 Normal [facility] HEMATOLOGY MCH 32.1 27.0 - 31.0 09/28/2012 [facility] HEMATOLOGY MCHC 33.6 32.0 - 36.0 09/28/2012 Normal [facility] CHEMISTRY Albumin Lvl 3.7 3.5 [...] Ratio 1.4 0.7 - 1.6 08/10/2012 Normal [facility] CHEMISTRY Bili Indirect >0.2 0.0 - 1.0 08/10/2012 Normal [facility] HEMATOLOGY Basophils 0.4 0.0 - 1.0 08/10/2012 Normal [facility] HEMATOLOGY Eosinophils # 0.0 0.0 - 0.5 08/10/2012 Normal [facility] HEMATOLOGY Monocytes # 0.4 0.0 - 0.8 08/10/2012 Normal [facility] HEMATOLOGY Basophils # 0.0 0.0 - 0.2 08/10/2012 Normal [facility] HEMATOLOGY Lymphocytes 20.8 20.0 - 40.0 08/10/2012 Normal [facility] HEMATOLOGY Segs 70.5 45.0 - 75.0 08/10/2012 Normal [facility] HEMATOLOGY Segs-Bands # 3.2 1.5 - 8.1 08/10/2012 Normal [facility] HEMATOLOGY Eosinophils 0.1 0.0 - 4.0 08/10/2012 Normal [facility] HEMATOLOGY Lymphocytes # 1.0 1.0 - 5.5 08/10/2012 Normal [facility] HEMATOLOGY Monocytes 8.2 2.0 - 12.0 08/10/2012 Normal [facility] HEMATOLOGY MPV 9.6 7.4 - 10.4 08/10/2012 Normal [facility] HEMATOLOGY Hgb 10.3 12.0 - 16.0 08/10/2012 LOW [facility] HEMATOLOGY RBC 3.27 4.20 - 5.40 08/10/2012 [facility] HEMATOLOGY MCHC 32.6 32.0 - 36.0 08/10/2012 Normal [facility] HEMATOLOGY RDW 12.7 11.5 - 14.5 08/10/2012 Normal [facility] HEMATOLOGY Platelet 216 133 - 450 08/10/2012 Normal [facility] HEMATOLOGY Hct 31.7 36.0 - 48.0 08/10/2012 LOW [facility] HEMATOLOGY MCV 96.9 81.0 - 99.0 08/10/2012 Normal [facility] HEMATOLOGY MCH 31.6 27.0 - 31.0 08/10/2012 HI [facility] HEMATOLOGY WBC 4.6 3.7 - 10.4 08/10/2012 Normal [facility] CHEMISTRY eGFR 112 08/09/2012 NA <sup>1</sup>Result [...] should be multiplied by the estimated BMI. [facility] CHEMISTRY Albumin Lvl 3.2 3.5 - 5.0 08/09/2012 LOW [facility] CHEMISTRY Total Protein 5.5 6.4 - 8.4 08/09/2012 LOW [facility] CHEMISTRY Calcium Lvl 8.4 8.5 - 10.5 08/09/2012 LOW [facility] CHEMISTRY Bili Total 0.4 0.2 - 1.3 08/09/2012 Normal [facility] CHEMISTRY Alk Phos 70 39 - 136 08/09/2012 Normal [facility] CHEMISTRY ALT 22 0 - 65 08/09/2012 Normal [facility] CHEMISTRY AST 6 0 - 37 08/09/2012 Normal [facility] CHEMISTRY Creatinine Lvl 0.7 0.5 - 1.4 08/09/2012 Normal [facility] CHEMISTRY CO2 32 24 - 32 08/09/2012 Normal [facility] CHEMISTRY Glucose Lvl 83 70 - 99 08/09/2012 Normal <sup>3</sup>Interpretive Data: Adult ref erence range values reflect the clinical guidelines
of the [place] [employer]. [facility] CHEMISTRY BUN 2 7 - 22 08/09/2012 LOW [facility] CHEMISTRY Chloride Lvl 106 95 - 109 08/09/2012 Normal [facility] CHEMISTRY Potassium Lvl 3.8 3.5 - 5.1 08/09/2012 Normal [facility] CHEMISTRY Sodium Lvl 145 135 - 145 08/09/2012 Normal [facility] CHEMISTRY B/C Ratio 3 6 - 25 08/09/2012 LOW [facility] CHEMISTRY AGAP 10.8 10.0 - 20.0 08/09/2012 Normal [facility] CHEMISTRY A/G Ratio 1.4 0.7 - 1.6 08/09/2012 Normal [facility] CHEMISTRY Globulin 2.3 2.0 - 4.0 08/09/2012 Normal [facility] CHEMISTRY Lipase Lvl 96 73 - 393 08/09/2012 Normal [facility] CHEMISTRY Amylase Lvl 26 25 - 115 08/09/2012 Normal [facility] HEMATOLOGY MPV 9.1 7.4 - 10.4 08/09/2012 Normal [facility] HEMATOLOGY Platelet 207 133 - 450 08/09/2012 Normal [facility] HEMATOLOGY WBC 3.3 3.7 - 10.4 08/09/2012 LOW [facility] HEMATOLOGY RBC 3.06 4.20 - 5.40 08/09/2012 LOW [facility] HEMATOLOGY Hgb 9.6 12.0 - 16.0 08/09/2012 LOW [facility] HEMATOLOGY RDW 12.7 11.5 - 14.5 08/09/2012 Normal [facility] HEMATOLOGY MCHC 32.4 32.0 - 36.0 08/09/2012 Normal [facility] HEMATOLOGY Hct 29.6 36.0 - 48.0 08/09/2012 LOW [facility] HEMATOLOGY MCV 96.7 81.0 - 99.0 08/09/2012 Normal [facility] HEMATOLOGY MCH 31.3 27.0 - 31.0 08/09/2012 [facility] HEMATOLOGY Basophils # 0.0 0.0 [...] HEMATOLOGY Lymphocytes 44.5 20.0 - 40.0 08/09/2012 [facility] HEMATOLOGY Monocytes 10.8 2.0 - 12.0 08/09/2012 Normal [facility] HEMATOLOGY Eosinophils 5.3 0.0 - 4.0 08/09/2012 [facility] HEMATOLOGY Segs 38.7 45.0 - 75.0 08/09/2012 [facility] CHEMISTRY U Preg Negati ve (08/08/2012 08:00:36) Negati ve 08/08/2012 Normal [facility] CHEMISTRY Bili Total 0.2 0.2 - 1.3 08/06/2012 Normal [facility] CHEMISTRY AST 14 0 - 37 08/06/2012 Normal [facility] CHEMISTRY Total Protein 7.3 6.4 - 8.4 08/06/2012 Normal [facility] CHEMISTRY CO2 28 24 - 32 08/06/2012 Normal [facility] CHEMISTRY ALT 43 0 - 65 08/06/2012 Normal [facility] CHEMISTRY Alk Phos 95 39 - 136 08/06/2012 Normal [facility] CHEMISTRY eGFR 95 08/06/2012 NA <sup>2</sup>Result [...] should be multiplied by the estimated BMI. [facility] CHEMISTRY Sodium Lvl 146 135 - 145 08/06/2012 HI [facility] CHEMISTRY Creatinine Lvl 0.8 0.5 - 1.4 08/06/2012 Normal [facility] CHEMISTRY BUN 10 7 - 22 08/06/2012 Normal [facility] CHEMISTRY Glucose Lvl 87 70 - 99 08/06/2012 Normal <sup>4</sup>Interpretive Data: Adult ref erence range values reflect the clinical guidelines
of the [place] [employer]. [facility] CHEMISTRY Potassium Lvl 3.5 3.5 - 5.1 08/06/2012 Normal [facility] CHEMISTRY Albumin Lvl 4.2 3.5 - 5.0 08/06/2012 Normal [facility] CHEMISTRY Chloride Lvl 109 95 - 109 08/06/2012 Normal [facility] CHEMISTRY Calcium Lvl 8.9 8.5 - 10.5 08/06/2012 Normal [facility] CHEMISTRY Globulin 3.1 2.0 - 4.0 08/06/2012 Normal [facility] CHEMISTRY A/G Ratio 1.4 0.7 - [...] WBC 4.0 3.7 - 10.4 08/06/2012 Normal [facility] HEMATOLOGY MPV 9.0 7.4 - 10.4 08/06/2012 Normal [facility] HEMATOLOGY Platelet 284 133 - 450 08/06/2012 Normal [facility] HEMATOLOGY RDW 13.2 11.5 - 14.5 08/06/2012 Normal [facility] HEMATOLOGY Hct 35.0 36.0 - 48.0 08/06/2012 LOW [facility] HEMATOLOGY Hgb 11.4 12.0 - 16.0 08/06/2012 LOW [facility] HEMATOLOGY RBC 3.65 4.20 - 5.40 08/06/2012 LOW [facility] HEMATOLOGY MCV 95.8 81.0 - 99.0 08/06/2012 Normal [facility] HEMATOLOGY MCHC 32.6 32.0 - 36.0 08/06/2012 Normal [facility] HEMATOLOGY MCH 31.2 27.0 - 31.0 08/06/2012 [facility] CHEMISTRY Total Protein 7.4 6.4 - 8.4 07/17/2012 Normal [facility] CHEMISTRY Globulin 3.1 2.0 - 4.0 07/17/2012 Normal [facility] CHEMISTRY A/G Ratio 1.4 0.7 - 1.6 07/17/2012 Normal [facility] CHEMISTRY Bili Total 0.2 0.2 - 1.3 07/17/2012 Normal [facility] CHEMISTRY Alk Phos 111 39 - 136 07/17/2012 Normal [facility] CHEMISTRY AST 45 0 - 37 07/17/2012 [facility] CHEMISTRY ALT 133 0 - 65 07/17/2012 [facility] CHEMISTRY eGFR 83 07/17/2012 NA [...] should be multiplied by the estimated BMI. [facility] CHEMISTRY Potassium Lvl 3.9 3.5 - 5.1 07/17/2012 Normal [facility] CHEMISTRY B/C Ratio 9 6 - 25 07/17/2012 Normal [facility] CHEMISTRY Albumin Lvl 4.3 3.5 - 5.0 07/17/2012 Normal [facility] CHEMISTRY AGAP 15.9 10.0 - 20.0 07/17/2012 Normal [facility] CHEMISTRY Calcium Lvl 9.2 8.5 - 10.5 07/17/2012 Normal [facility] CHEMISTRY Chloride Lvl 105 95 - 109 07/17/2012 Normal [facility] CHEMISTRY CO2 25 24 - 32 07/17/2012 Normal [facility] CHEMISTRY Sodium Lvl 142 135 - 145 07/17/2012 Normal [facility] CHEMISTRY Creatinine Lvl 0.9 0.5 - 1.4 07/17/2012 Normal [facility] CHEMISTRY BUN 8 7 - 22 07/17/2012 Normal [facility] CHEMISTRY Glucose Lvl 85 70 - 99 07/17/2012 Normal <sup>2</sup>Interpretive Data: Adult ref erence range values reflect the clinical guidelines
of the [place] [employer]. [facility] CHEMISTRY U Cocaine Scr Negati ve *NA* (07/17/2012 15:00:00) Negati ve 07/17/2012 NA [facility] CHEMISTRY U Cannab Scr Negati ve *NA* (07/17/2012 15:00:00) Negati ve 07/17/2012 NA [facility] CHEMISTRY U Opiate Scr Negati ve *NA* (07/17/2012 15:00:00) Negati ve 07/17/2012 NA [facility] CHEMISTRY UDS Note See No te [...] 300 ng/m L
Urine alcohol 20 mg/dL [facility] CHEMISTRY U Phencyc Scr Negati ve *NA* (07/17/2012 15:00:00) Negati ve 07/17/2012 NA [facility] CHEMISTRY U Amph Scr Negati ve *NA* (07/17/2012 15:00:00) Negati ve 07/17/2012 NA [facility] CHEMISTRY U Pilar Scr Negati ve *NA* (07/17/2012 15:00:00) Negati ve 07/17/2012 NA [facility] CHEMISTRY U Benzodia Scr Positi ve *ABN* (07/17/2012 15:00:00) Negati ve 07/17/2012 ABN [facility] HEMATOLOGY MPV 9.1 7.4 - 10.4 07/17/2012 Normal [facility] HEMATOLOGY Platelet 328 133 - 450 07/17/2012 Normal [facility] HEMATOLOGY RDW 12.8 11.5 - 14.5 07/17/2012 Normal [facility] HEMATOLOGY MCHC 32.9 32.0 - 36.0 07/17/2012 Normal [facility] HEMATOLOGY MCH 31.3 27.0 - 31.0 07/17/2012 HI [facility] HEMATOLOGY WBC 4.0 3.7 - 10.4 07/17/2012 Normal [facility] HEMATOLOGY Hgb 11.7 12.0 - 16.0 07/17/2012 LOW [facility] HEMATOLOGY RBC 3.73 4.20 - 5.40 07/17/2012 LOW [facility] HEMATOLOGY MCV 95.0 81.0 - 99.0 07/17/2012 Normal [facility] HEMATOLOGY Hct 35.5 36.0 - 48.0 07/17/2012 LOW [facility] HEMATOLOGY Segs 54.9 45.0 - 75.0 07/17/2012 Normal [facility] HEMATOLOGY Eosinophils 2.8 0.0 - 4.0 07/17/2012 Normal [facility] HEMATOLOGY Monocytes 7.0 2.0 - 12.0 07/17/2012 Normal [facility] HEMATOLOGY Lymphocytes 34.7 20.0 - 40.0 07/17/2012 Normal [facility] HEMATOLOGY Lymphocytes # 1.4 1.0 - 5.5 07/17/2012 Normal [facility] HEMATOLOGY Eosinophils # 0.1 0.0 - 0.5 07/17/2012 Normal [facility] HEMATOLOGY Monocytes # 0.3 0.0 - 0.8 07/17/2012 Normal [facility] HEMATOLOGY Segs-Bands # 2.2 1.5 - 8.1 07/17/2012 Normal [facility] HEMATOLOGY Basophils 0.6 0.0 - 1.0 07/17/2012 Normal [facility] HEMATOLOGY Basophils # 0.0 0.0 - 0.2 07/17/2012 Normal [facility] CHEMISTRY U Preg Negati ve (07/16/2012 01:22:00) Negati ve 07/16/2012 Normal [facility] Microbiology Culture: Urine 07/16/2012 [facility] URINALYSIS UA Urobilinogen 0.1 - 1.0 07/16/2012 NA [facility] URINALYSIS UA Color Isela 07/16/2012 NA [facility] URINALYSIS UA Sq Epi None Seen 07/16/2012 NA [facility] URINALYSIS UA Protein Negat jose maria mg/dL (07/16/2012 00:05:00) Negati ve 07/16/2012 Normal [facility] URINALYSIS UA Ketones Negat jose maria mg/dL *NA* (07/16/2012 00:05:00) Negati ve 07/16/2012 NA [facility] URINALYSIS UA Glucose Negat jose maria mg/dL *NA* (07/16/2012 00:05:00) Negati ve 07/16/2012 NA [facility] URINALYSIS UA Spec Grav 1.003 <=1.030 07/16/2012 Normal [facility] URINALYSIS UA pH 7.0 5.0 - 8.0 07/16/2012 Normal [facility] URINALYSIS UA Turbidity Clear (07/16/2012 00:05:00) Clear 07/16/2012 Normal [facility] URINALYSIS UA Leuk Est Negat jose maria (07/16/2012 00:05:00) Negati ve 07/16/2012 Normal [facility] URINALYSIS UA Nitrite Posit jose maria *ABN* (07/16/2012 00:05:00) Negati ve 07/16/2012 ABN [facility] URINALYSIS UA Bili Negat jose maria *NA* (07/16/2012 00:05:00) Negati ve 07/16/2012 NA [facility] URINALYSIS UA RBC <1 0 - 2 07/16/2012 Normal [facility] URINALYSIS UA WBC <1 0 - 5 07/16/2012 Normal [facility] URINALYSIS UA Blood Negat jose maria (07/16/2012 00:05:00) Negati ve 07/16/2012 Normal [facility] CHEMISTRY Lipase Lvl 119 73 - 393 07/16/2012 Normal [facility] CHEMISTRY eGFR 95 07/16/2012 NA <sup>1</sup>Result [...] should be multiplied by the estimated BMI. [facility] CHEMISTRY Albumin Lvl 4.0 3.5 - 5.0 07/16/2012 Normal [facility] CHEMISTRY CO2 30 24 - 32 07/16/2012 Normal [facility] CHEMISTRY Calcium Lvl 8.9 8.5 - 10.5 07/16/2012 Normal [facility] CHEMISTRY BUN 9 7 - 22 07/16/2012 Normal [facility] CHEMISTRY Chloride Lvl 104 95 - 109 07/16/2012 Normal [facility] CHEMISTRY Creatinine Lvl 0.8 0.5 - 1.4 07/16/2012 Normal [facility] CHEMISTRY Sodium Lvl 142 135 - 145 07/16/2012 Normal [facility] CHEMISTRY Potassium Lvl 4.0 3.5 - 5.1 07/16/2012 Normal [facility] CHEMISTRY Glucose Lvl 92 70 - 99 07/16/2012 Normal <sup>2</sup>Interpretive Data: Adult ref erence range values reflect the clinical guidelines
of the [place] [employer]. [facility] CHEMISTRY Total Protein 7.2 6.4 - 8.4 07/16/2012 Normal [facility] CHEMISTRY ALT 157 0 - 65 07/16/2012 HI [facility] CHEMISTRY Alk Phos 98 39 - 136 07/16/2012 Normal [facility] CHEMISTRY Bili Total 0.2 0.2 - 1.3 07/16/2012 Normal [facility] CHEMISTRY AST 65 0 - 37 07/16/2012 [facility] CHEMISTRY B/C Ratio 11 6 - 25 07/16/2012 Normal [facility] CHEMISTRY AGAP 12.0 10.0 - 20.0 07/16/2012 Normal [facility] CHEMISTRY Globulin 3.2 2.0 - 4.0 07/16/2012 Normal [facility] CHEMISTRY A/G Ratio 1.2 0.7 - 1.6 07/16/2012 Normal [facility] HEMATOLOGY Segs-Bands # 1.4 1.5 - 8.1 07/16/2012 LOW [facility] HEMATOLOGY Lymphocytes # 1.6 1.0 - 5.5 07/16/2012 Normal [facility] HEMATOLOGY Eosinophils 4.1 0.0 - 4.0 07/16/2012 [facility] HEMATOLOGY Basophils 0.6 0.0 - 1.0 07/16/2012 Normal [facility] HEMATOLOGY Monocytes 9.8 2.0 - 12.0 07/16/2012 Normal [facility] HEMATOLOGY Eosinophils # 0.1 0.0 - 0.5 07/16/2012 Normal [facility] HEMATOLOGY Monocytes # 0.4 0.0 - 0.8 07/16/2012 Normal [facility] HEMATOLOGY Basophils # 0.0 0.0 - 0.2 07/16/2012 Normal [facility] HEMATOLOGY Segs 39.4 45.0 - 75.0 07/16/2012 [facility] HEMATOLOGY Lymphocytes 46.1 20.0 - 40.0 07/16/2012 [facility] HEMATOLOGY Platelet 305 133 - 450 07/16/2012 Normal [facility] HEMATOLOGY RDW 12.9 11.5 - 14.5 07/16/2012 Normal [facility] HEMATOLOGY MPV 8.4 7.4 - 10.4 07/16/2012 Normal [facility] HEMATOLOGY MCV 96.2 81.0 - 99.0 07/16/2012 Normal [facility] HEMATOLOGY WBC 3.6 3.7 - 10.4 07/16/2012 [facility] HEMATOLOGY MCHC 32.6 32.0 - 36.0 07/16/2012 Normal [facility] HEMATOLOGY MCH 31.4 27.0 - 31.0 07/16/2012 [facility] HEMATOLOGY Hct 33.4 36.0 - 48.0 07/16/2012 LOW [facility] HEMATOLOGY RBC 3.48 4.20 - 5.40 07/16/2012 [facility] HEMATOLOGY Hgb 10.9 12.0 - 16.0 07/16/2012 [facility] BEDSIDE GLUCOSE TESTING Gluc POC Lif scn 68 70 - 99 07/11/2012 LOW <sup>1</sup>Interpretive Data: Upper Reportable Limit: 200 mg/dL. [facility] BEDSIDE GLUCOSE TESTING Comment1 Notify RN/ 07/11/2012 NA [facility] URINALYSIS UA Protein Negat jose maria mg/dL (07/09/2012 13:30:52) Negati ve 07/09/2012 Normal [facility] URINALYSIS UA Bili Negat jose maria *NA* (07/09/2012 13:30:52) Negati ve 07/09/2012 NA [facility] URINALYSIS UA Ketones Negat jose maria mg/dL *NA* (07/09/2012 13:30:52) Negati ve 07/09/2012 NA [facility] URINALYSIS UA Nitrite Negat jose maria (07/09/2012 13:30:52) Negati ve 07/09/2012 Normal [facility] URINALYSIS UA Blood Moder ate *ABN* (07/09/2012 13:30:52) Negati ve 07/09/2012 ABN [facility] URINALYSIS UA Glucose Negat jose maria mg/dL *NA* (07/09/2012 13:30:52) Negati ve 07/09/2012 NA [facility] URINALYSIS UA Color Isela 07/09/2012 NA [facility] URINALYSIS UA Leuk Est Trace *ABN* (07/09/2012 13:30:52) Negati ve 07/09/2012 ABN [facility] URINALYSIS UA Urobilinogen 0.1 - 1.0 07/09/2012 NA [facility] URINALYSIS UA Spec Grav 1.005 <=1.030 07/09/2012 Normal [facility] URINALYSIS UA Turbidity Clear (07/09/2012 13:30:52) Clear 07/09/2012 Normal [facility] URINALYSIS UA pH 6.0 5.0 - 8.0 07/09/2012 Normal [facility] BLOOD [facility] RESULTS Antibody Scrn Negative (07/09/2012 13:04:00) 07/09/2012 Normal [facility] BLOOD BANK RESULTS ABO/Rh O POS 07/09/2012 Unknown [facility] CHEMISTRY B/C Ratio 12 6 - 25 07/09/2012 Normal [facility] CHEMISTRY AGAP 12.5 10.0 - 20.0 07/09/2012 Normal [facility] CHEMISTRY A/G Ratio 1.3 0.7 - 1.6 07/09/2012 Normal [facility] CHEMISTRY Globulin 3.0 2.0 - 4.0 07/09/2012 Normal [facility] CHEMISTRY eGFR 73 07/09/2012 NA <sup>2</sup>Result [...] should be multiplied by the estimated BMI. [facility] CHEMISTRY Albumin Lvl 3.8 3.5 - 5.0 07/09/2012 Normal [facility] CHEMISTRY Calcium Lvl 9.5 8.5 - 10.5 07/09/2012 Normal [facility] CHEMISTRY Chloride Lvl 105 95 - 109 07/09/2012 Normal [facility] CHEMISTRY CO2 31 24 - 32 07/09/2012 Normal [facility] CHEMISTRY Sodium Lvl 143 135 - 145 07/09/2012 Normal [facility] CHEMISTRY Creatinine Lvl 1.0 0.5 - 1.4 07/09/2012 Normal [facility] CHEMISTRY Potassium Lvl 5.5 3.5 - 5.1 07/09/2012 HI [facility] CHEMISTRY BUN 12 7 - 22 07/09/2012 Normal [facility] CHEMISTRY Glucose Lvl 84 70 - 99 07/09/2012 Normal <sup>3</sup>Interpretive Data: Adult ref erence range values reflect the clinical guidelines
of the [place] [employer]. [facility] CHEMISTRY Total Protein 6.8 6.4 - 8.4 07/09/2012 Normal [facility] CHEMISTRY Alk Phos 92 39 - 136 07/09/2012 Normal [facility] CHEMISTRY Bili Total 0.2 0.2 - 1.3 07/09/2012 Normal [facility] CHEMISTRY ALT 44 0 - 65 07/09/2012 Normal [facility] CHEMISTRY AST 13 0 - 37 07/09/2012 Normal [facility] HEMATOLOGY Eosinophils # 0.2 0.0 - 0.5 07/09/2012 Normal [facility] HEMATOLOGY Basophils 0.3 0.0 - 1.0 07/09/2012 Normal [facility] HEMATOLOGY Eosinophils 4.7 0.0 - 4.0 07/09/2012 [facility] HEMATOLOGY Monocytes 10.2 2.0 - 12.0 07/09/2012 Normal [facility] HEMATOLOGY Lymphocytes 50.5 20.0 - 40.0 07/09/2012 [facility] HEMATOLOGY Basophils # 0.0 0.0 - 0.2 07/09/2012 Normal [facility] HEMATOLOGY Monocytes # 0.3 0.0 - 0.8 07/09/2012 Normal [facility] HEMATOLOGY Lymphocytes # 1.7 1.0 - 5.5 07/09/2012 Normal [facility] HEMATOLOGY Segs-Bands # 1.1 1.5 - 8.1 07/09/2012 LOW [facility] HEMATOLOGY Segs 34.3 45.0 - 75.0 07/09/2012 LOW [facility] HEMATOLOGY RBC 3.35 4.20 - 5.40 07/09/2012 LOW [facility] HEMATOLOGY RDW 12.9 11.5 - 14.5 07/09/2012 Normal [facility] HEMATOLOGY MCH 31.7 27.0 - 31.0 07/09/2012 [facility] HEMATOLOGY Platelet 264 133 - 450 07/09/2012 Normal [facility] HEMATOLOGY MCHC 32.5 32.0 - 36.0 07/09/2012 Normal [facility] HEMATOLOGY MCV 97.4 81.0 - 99.0 07/09/2012 Normal [facility] HEMATOLOGY Hct 32.7 36.0 - 48.0 07/09/2012 LOW [facility] HEMATOLOGY MPV 8.9 7.4 - 10.4 07/09/2012 Normal [facility] HEMATOLOGY WBC 3.3 3.7 - 10.4 07/09/2012 LOW [facility] HEMATOLOGY Hgb 10.6 12.0 - 16.0 07/09/2012 LOW [facility] Microbiology Culture: Urine 07/08/2012 [facility] URINALYSIS UA Color Isela 07/08/2012 NA [facility] URINALYSIS UA Sq Epi None Seen 07/08/2012 NA [facility] URINALYSIS UA Spec Grav 1.009 <=1.030 07/08/2012 Normal [facility] URINALYSIS UA Turbidity Clear (07/08/2012 01:50:00) Clear 07/08/2012 Normal [facility] URINALYSIS UA Nitrite Posit jose maria *ABN* (07/08/2012 01:50:00) Negati ve 07/08/2012 ABN [facility] URINALYSIS UA Blood Negat jose maria (07/08/2012 01:50:00) Negati ve 07/08/2012 Normal [facility] URINALYSIS UA Leuk Est Negat jose maria (07/08/2012 01:50:00) Negati ve 07/08/2012 Normal [facility] URINALYSIS UA Urobilinogen 4.0 0.1 - 1.0 07/08/2012 HI [facility] URINALYSIS UA Bili Negat jose maria *NA* (07/08/2012 01:50:00) Negati ve 07/08/2012 NA [facility] URINALYSIS UA Ketones Negat jose maria mg/dL *NA* (07/08/2012 01:50:00) Negati ve 07/08/2012 NA [facility] URINALYSIS UA Glucose Negat jose maria mg/dL *NA* (07/08/2012 01:50:00) Negati ve 07/08/2012 NA [facility] URINALYSIS UA Protein Negat jose maria mg/dL (07/08/2012 01:50:00) Negati ve 07/08/2012 Normal [facility] URINALYSIS UA pH 6.0 5.0 - 8.0 07/08/2012 Normal [facility] CHEMISTRY eGFR 83 07/07/2012 NA <sup>1</sup>Result [...] should be multiplied by the estimated BMI. [facility] CHEMISTRY Potassium Lvl 3.6 3.5 - 5.1 07/07/2012 Normal [facility] CHEMISTRY Sodium Lvl 141 135 - 145 07/07/2012 Normal [facility] CHEMISTRY Creatinine Lvl 0.9 0.5 - 1.4 07/07/2012 Normal [facility] CHEMISTRY BUN 14 7 - 22 07/07/2012 Normal [facility] CHEMISTRY Glucose Lvl 88 70 - 99 07/07/2012 Normal <sup>2</sup>Interpretive Data: Adult ref erence range values reflect the clinical guidelines
of the [place] [employer]. [facility] CHEMISTRY ALT 67 0 - 65 07/07/2012 [facility] CHEMISTRY Globulin 3.5 2.0 - 4.0 07/07/2012 Normal [facility] CHEMISTRY A/G Ratio 1.2 0.7 - 1.6 07/07/2012 Normal [facility] CHEMISTRY Calcium Lvl 8.6 8.5 - 10.5 07/07/2012 Normal [facility] CHEMISTRY B/C Ratio 16 6 - 25 07/07/2012 Normal [facility] CHEMISTRY AGAP 12.6 10.0 - 20.0 07/07/2012 Normal [facility] CHEMISTRY Albumin Lvl 4.1 3.5 - 5.0 07/07/2012 Normal [facility] CHEMISTRY Total Protein 7.6 6.4 - 8.4 07/07/2012 Normal [facility] CHEMISTRY Alk Phos 100 39 - 136 07/07/2012 Normal [facility] CHEMISTRY AST 31 0 - 37 07/07/2012 Normal [facility] CHEMISTRY Bili Total 0.1 0.2 - 1.3 07/07/2012 LOW [facility] CHEMISTRY CO2 28 24 - 32 07/07/2012 Normal [facility] CHEMISTRY Chloride Lvl 104 95 - 109 07/07/2012 Normal [facility] HEMATOLOGY Platelet 238 133 - 450 07/07/2012 Normal [facility] HEMATOLOGY MPV 9.5 7.4 - 10.4 07/07/2012 Normal [facility] HEMATOLOGY Hgb 11.0 12.0 - 16.0 07/07/2012 LOW [facility] HEMATOLOGY MCV 95.8 81.0 - 99.0 07/07/2012 Normal [facility] HEMATOLOGY MCH 31.6 27.0 - 31.0 07/07/2012 HI [facility] HEMATOLOGY MCHC 33.0 32.0 - 36.0 07/07/2012 Normal [facility] HEMATOLOGY WBC 3.3 3.7 - 10.4 07/07/2012 LOW [facility] HEMATOLOGY RBC 3.47 4.20 - 5.40 07/07/2012 LOW [facility] HEMATOLOGY RDW 13.1 11.5 - 14.5 07/07/2012 Normal [facility] HEMATOLOGY Hct 33.2 36.0 - 48.0 07/07/2012 LOW [facility] HEMATOLOGY Segs 39.4 45.0 - 75.0 07/07/2012 LOW [facility] HEMATOLOGY Eosinophils # 0.1 0.0 - 0.5 07/07/2012 Normal [facility] HEMATOLOGY Basophils # 0.0 0.0 - 0.2 07/07/2012 Normal [facility] HEMATOLOGY Monocytes 12.7 2.0 - 12.0 07/07/2012 HI [facility] HEMATOLOGY Lymphocytes 44.6 20.0 - 40.0 07/07/2012 [facility] HEMATOLOGY Eosinophils 2.7 0.0 - 4.0 07/07/2012 Normal [facility] HEMATOLOGY Basophils 0.6 0.0 - 1.0 07/07/2012 Normal [facility] HEMATOLOGY Segs-Bands # 1.3 1.5 - 8.1 07/07/2012 LOW [facility] HEMATOLOGY Lymphocytes # 1.5 1.0 - 5.5 07/07/2012 Normal [facility] HEMATOLOGY Monocytes # 0.4 0.0 - 0.8 07/07/2012 Normal [facility] CHEMISTRY U Preg Negati ve (07/06/2012 23:36:00) Negati ve 07/07/2012 Normal [facility] URINALYSIS UA Sq Epi None Seen 07/07/2012 NA [facility] URINALYSIS UA RBC <1 0 - 2 07/07/2012 Normal [facility] URINALYSIS UA Urobilinogen 0.1 - 1.0 07/07/2012 NA [facility] URINALYSIS UA WBC <1 0 - 5 07/07/2012 Normal [facility] URINALYSIS UA Ketones Negat jose maria [...] UA Spec Grav 1.006 <=1.030 07/07/2012 Normal [facility] Microbiology Culture: Urine 07/07/2012 [facility] URINALYSIS UA Urobilinogen 0.1 - 1.0 05/31/2012 NA [facility] URINALYSIS UA Color Yello w *NA* (05/31/2012 08:30:00) Yellow 05/31/2012 NA [facility] URINALYSIS UA Turbidity Clear (05/31/2012 08:30:00) Clear 05/31/2012 Normal [facility] URINALYSIS UA Spec Grav 1.016 <=1.030 05/31/2012 Normal [facility] URINALYSIS UA Protein Negat jose maria mg/dL (05/31/2012 08:30:00) Negati ve 05/31/2012 Normal [facility] URINALYSIS UA Glucose Negat jose maria mg/dL *NA* (05/31/2012 08:30:00) Negati ve 05/31/2012 NA [facility] URINALYSIS UA pH 5.0 5.0 - 8.0 05/31/2012 Normal [facility] URINALYSIS UA WBC 2 0 - 5 05/31/2012 Normal [facility] URINALYSIS UA RBC <1 0 - 2 05/31/2012 Normal [facility] URINALYSIS UA Mucus Few / LPF *NA* (05/31/2012 08:30:00) None S een 05/31/2012 [facility] URINALYSIS UA Bili Negat jose maria *NA* (05/31/2012 08:30:00) Negati ve 05/31/2012 NA [facility] URINALYSIS UA Ketones Negat jose maria mg/dL *NA* (05/31/2012 08:30:00) Negati ve 05/31/2012 NA [facility] URINALYSIS UA Blood Negat jose maria (05/31/2012 08:30:00) Negati ve 05/31/2012 Normal [facility] URINALYSIS UA Nitrite Negat jose maria (05/31/2012 08:30:00) Negati ve 05/31/2012 Normal [facility] URINALYSIS UA Leuk Est Small *ABN* (05/31/2012 08:30:00) Negati ve 05/31/2012 ABN [facility] URINALYSIS UA Sq Epi Occas ional /LPF *NA* (05/31/2012 08:30:00) Few 05/31/2012 NA [facility] CHEMISTRY CK MB <0.5 0.5 - 3.6 05/31/2012 Normal [facility] CHEMISTRY Troponin-I <0.02 0.00 - 0.40 05/31/2012 Normal [facility] CHEMISTRY AST 17 0 - 37 05/31/2012 Normal [facility] CHEMISTRY Globulin 2.9 2.0 - 4.0 05/31/2012 Normal [facility] CHEMISTRY Bili Total 0.2 0.2 - 1.3 05/31/2012 Normal [facility] CHEMISTRY A/G Ratio 1.5 0.7 - 1.6 05/31/2012 Normal [facility] CHEMISTRY Alk Phos 86 39 - 136 05/31/2012 Normal [facility] CHEMISTRY ALT 61 0 - 65 05/31/2012 Normal [facility] CHEMISTRY Total Protein 7.2 6.4 - 8.4 05/31/2012 Normal [facility] CHEMISTRY eGFR 83 05/31/2012 NA <sup>1</sup>Result [...] should be multiplied by the estimated BMI. [facility] CHEMISTRY B/C Ratio 14 6 - 25 05/31/2012 Normal [facility] CHEMISTRY Albumin Lvl 4.3 3.5 - 5.0 05/31/2012 Normal [facility] CHEMISTRY AGAP 11.5 10.0 - 20.0 05/31/2012 Normal [facility] CHEMISTRY Calcium Lvl 9.0 8.5 - 10.5 05/31/2012 Normal [facility] CHEMISTRY CO2 28 24 - 32 05/31/2012 Normal [facility] CHEMISTRY Chloride Lvl 105 95 - 109 05/31/2012 Normal [facility] CHEMISTRY Sodium Lvl 141 135 - 145 05/31/2012 Normal [facility] CHEMISTRY Creatinine Lvl 0.9 0.5 - 1.4 05/31/2012 Normal [facility] CHEMISTRY Potassium Lvl 3.5 3.5 - 5.1 05/31/2012 Normal [facility] CHEMISTRY Glucose Lvl 130 70 - 99 05/31/2012 [facility] <sup>2</sup>Interpretive Data: Adult ref erence range values reflect the clinical guidelines
of the [place] [employer]. [facility] CHEMISTRY BUN 13 7 - 22 05/31/2012 Normal [facility] CHEMISTRY Total CK 74 12 - 191 05/31/2012 Normal [facility] CHEMISTRY CK MB Index <0.7 0.0 - 2.5 05/31/2012 Normal [facility] HEMATOLOGY INR 0.93 0.85 - 1.17 05/31/2012 Normal <sup>3</sup>Interpretive Data: RECOMMEND ED RANGES FOR PROTIME INR:
2.0-3.0 for most medical and surgical thromboembolic states.
2.5-3.5 for artificial heart valves and recurrent embolism.

INR SHOULD BE USED ONLY FOR PATIENTS ON STABLE ANTICOAGULANT THERAPY. [facility] HEMATOLOGY PT 12.7 12.0 - 14.7 05/31/2012 Normal [facility] HEMATOLOGY RDW 12.7 11.5 - 14.5 05/31/2012 Normal [facility] HEMATOLOGY MCH 31.9 27.0 - 31.0 05/31/2012 HI [facility] HEMATOLOGY MCHC 33.0 32.0 - 36.0 05/31/2012 Normal [facility] HEMATOLOGY RBC 3.83 4.20 - 5.40 05/31/2012 LOW [facility] HEMATOLOGY Hgb 12.2 12.0 - 16.0 05/31/2012 Normal [facility] HEMATOLOGY Hct 37.0 36.0 - 48.0 05/31/2012 Normal [facility] HEMATOLOGY MCV 96.6 81.0 - 99.0 05/31/2012 Normal [facility] HEMATOLOGY WBC 5.7 3.7 - 10.4 05/31/2012 Normal [facility] HEMATOLOGY Platelet 272 133 - 450 05/31/2012 Normal [facility] HEMATOLOGY MPV 9.6 7.4 - 10.4 05/31/2012 Normal [facility] HEMATOLOGY Basophils 0.5 0.0 - 1.0 05/31/2012 Normal [facility] HEMATOLOGY Segs-Bands # 3.3 1.5 - 8.1 05/31/2012 Normal [facility] HEMATOLOGY Segs 58.7 45.0 - 75.0 05/31/2012 Normal [facility] HEMATOLOGY Lymphocytes # 1.9 1.0 - 5.5 05/31/2012 Normal [facility] HEMATOLOGY Lymphocytes 33.6 20.0 - 40.0 05/31/2012 Normal [facility] HEMATOLOGY Monocytes # 0.3 0.0 - 0.8 05/31/2012 Normal [facility] HEMATOLOGY Monocytes 5.5 2.0 - 12.0 05/31/2012 Normal [facility] HEMATOLOGY Eosinophils 1.7 0.0 - 4.0 05/31/2012 Normal [facility] HEMATOLOGY Basophils # 0.0 0.0 - 0.2 05/31/2012 Normal [facility] HEMATOLOGY Eosinophils # 0.1 0.0 - 0.5 05/31/2012 Normal [facility] CHEMISTRY Bili Total 0.2 0.2 - 1.3 04/08/2012 Normal [facility] CHEMISTRY AST 17 0 - 37 04/08/2012 Normal [facility] CHEMISTRY Alk Phos 77 39 - 136 04/08/2012 Normal [facility] CHEMISTRY Total Protein 6.9 6.4 - 8.4 04/08/2012 Normal [facility] CHEMISTRY ALT 49 0 - 65 04/08/2012 Normal [facility] CHEMISTRY eGFR 95 04/08/2012 NA <sup>1</sup>Result [...] should be multiplied by the estimated BMI. [facility] CHEMISTRY Calcium Lvl 8.6 8.5 - 10.5 04/08/2012 Normal [facility] CHEMISTRY Albumin Lvl 3.9 3.5 - 5.0 04/08/2012 Normal [facility] CHEMISTRY CO2 28 24 - 32 04/08/2012 Normal [facility] CHEMISTRY Chloride Lvl 106 95 - 109 04/08/2012 Normal [facility] CHEMISTRY Glucose Lvl 85 70 - 99 04/08/2012 Normal <sup>2</sup>Interpretive Data: Adult ref erence range values reflect the clinical guidelines
of the [place] [employer]. [facility] CHEMISTRY Creatinine Lvl 0.8 0.5 - 1.4 04/08/2012 Normal [facility] CHEMISTRY Potassium Lvl 4.2 3.5 - 5.1 04/08/2012 Normal [facility] CHEMISTRY Sodium Lvl 145 135 - 145 04/08/2012 Normal [facility] CHEMISTRY BUN 15 7 - 22 04/08/2012 Normal [facility] CHEMISTRY A/G Ratio 1.3 0.7 - 1.6 04/08/2012 Normal [facility] CHEMISTRY Globulin 3.0 2.0 - 4.0 04/08/2012 Normal [facility] CHEMISTRY AGAP 15.2 10.0 - 20.0 04/08/2012 Normal [facility] CHEMISTRY B/C Ratio 19 6 - 25 04/08/2012 Normal [facility] HEMATOLOGY Basophils # 0.0 0.0 - 0.2 04/08/2012 Normal [facility] HEMATOLOGY Eosinophils # 0.1 0.0 - 0.5 04/08/2012 Normal [facility] HEMATOLOGY Monocytes # 0.4 0.0 - 0.8 04/08/2012 Normal [facility] HEMATOLOGY Segs-Bands # 2.4 1.5 - 8.1 04/08/2012 Normal [facility] HEMATOLOGY Basophils 0.6 0.0 - 1.0 04/08/2012 Normal [facility] HEMATOLOGY Eosinophils 3.1 0.0 - 4.0 04/08/2012 Normal [facility] HEMATOLOGY Lymphocytes # 1.6 1.0 - 5.5 04/08/2012 Normal [facility] HEMATOLOGY Monocytes 8.6 2.0 - 12.0 04/08/2012 Normal [facility] HEMATOLOGY Segs 52.7 45.0 - 75.0 04/08/2012 Normal [facility] HEMATOLOGY Lymphocytes 35.0 20.0 - 40.0 04/08/2012 Normal [facility] HEMATOLOGY Platelet 257 133 - 450 04/08/2012 Normal [facility] HEMATOLOGY RDW 12.9 11.5 - 14.5 04/08/2012 Normal [facility] HEMATOLOGY MPV 9.2 7.4 - 10.4 04/08/2012 Normal [facility] HEMATOLOGY Hgb 11.9 12.0 - 16.0 04/08/2012 LOW [facility] HEMATOLOGY RBC 3.64 4.20 - 5.40 04/08/2012 LOW [facility] HEMATOLOGY Hct 35.3 36.0 - 48.0 04/08/2012 LOW [facility] HEMATOLOGY MCV 97.2 81.0 - 99.0 04/08/2012 Normal [facility] HEMATOLOGY MCH 32.6 27.0 - 31.0 04/08/2012 HI [facility] HEMATOLOGY MCHC 33.6 32.0 - 36.0 04/08/2012 Normal [facility] HEMATOLOGY WBC 4.5 3.7 - 10.4 04/08/2012 Normal [facility] Microbiology Culture: Urine 01/25/2012 [facility] CHEMISTRY UDS Note See No te [...] 300 ng/m L
Urine alcohol 20 mg/dL [facility] CHEMISTRY U Phencyc Scr Negati ve *NA* (01/24/2012 22:46:00) Negati ve 01/25/2012 [facility] CHEMISTRY U Opiate Scr Negati ve *NA* (01/24/2012 22:46:00) Negati ve 01/25/2012 [facility] CHEMISTRY U Cannab Scr Negati ve *NA* (01/24/2012 22:46:00) Negati ve 01/25/2012 [facility] CHEMISTRY U Pilar Scr Negati ve *NA* (01/24/2012 22:46:00) Negati ve 01/25/2012 [facility] CHEMISTRY U Amph Scr Negati ve *NA* (01/24/2012 22:46:00) Negati ve 01/25/2012 [facility] CHEMISTRY U Cocaine Scr Negati ve *NA* (01/24/2012 22:46:00) Negati ve 01/25/2012 [facility] CHEMISTRY U Benzodia Scr Positi ve *ABN* (01/24/2012 22:46:00) Negati ve 01/25/2012 ABN [facility] URINALYSIS UA Urobilinogen 0.1 - 1.0 01/25/2012 [facility] URINALYSIS UA Color Colorless 01/25/2012 NA [facility] URINALYSIS UA Blood Negat jose maria (01/24/2012 22:46:00) Negati ve 01/25/2012 Normal [facility] URINALYSIS UA Bili Negat jose maria *NA* (01/24/2012 22:46:00) Negati ve 01/25/2012 [facility] URINALYSIS UA Ketones Negat jose maria [...] mg/dL (01/24/2012 22:46:00) Negati ve 01/25/2012 Normal [facility] URINALYSIS UA pH 6.0 5.0 - 8.0 01/25/2012 Normal [facility] URINALYSIS UA Turbidity Clear (01/24/2012 22:46:00) Clear 01/25/2012 Normal [facility] URINALYSIS UA Spec Grav 1.002 <=1.030 01/25/2012 Normal [facility] BEDSIDE GLUCOSE TESTING Gluc POC Lif scn 116 70 - 99 01/25/2012 [place] <sup>1</sup>Interpretive Data: Upper Reportable Limit: 200 mg/dL. [facility] CHEMISTRY Globulin 3.1 2.0 - 4.0 01/25/2012 Normal [facility] CHEMISTRY A/G Ratio 1.4 0.7 - 1.6 01/25/2012 Normal [facility] CHEMISTRY B/C Ratio 14 6 - 25 01/25/2012 Normal [facility] CHEMISTRY AGAP 13.5 10.0 - 20.0 01/25/2012 Normal [facility] CHEMISTRY ALT 76 0 - 65 01/25/2012 [facility] CHEMISTRY Total Protein 7.3 6.4 - 8.4 01/25/2012 Normal [facility] CHEMISTRY AST 45 0 - 37 01/25/2012 [facility] CHEMISTRY Alk Phos 95 39 - 136 01/25/2012 Normal [facility] CHEMISTRY Bili Total 0.2 0.2 - 1.3 01/25/2012 Normal [facility] CHEMISTRY Glucose Lvl 79 70 - 99 01/25/2012 Normal <sup>3</sup>Interpretive Data: Adult ref erence range values reflect the clinical guidelines
of the [place] [employer]. [facility] CHEMISTRY BUN 11 7 - 22 01/25/2012 Normal [facility] CHEMISTRY Creatinine Lvl 0.8 0.5 - 1.4 01/25/2012 Normal [facility] CHEMISTRY Chloride Lvl 108 95 - 109 01/25/2012 Normal [facility] CHEMISTRY CO2 26 24 - 32 01/25/2012 Normal [facility] CHEMISTRY Sodium Lvl 144 135 - 145 01/25/2012 Normal [facility] CHEMISTRY Potassium Lvl 3.5 3.5 - 5.1 01/25/2012 Normal [facility] CHEMISTRY Calcium Lvl 9.1 8.5 - 10.5 01/25/2012 Normal [facility] CHEMISTRY Albumin Lvl 4.2 3.5 - 5.0 01/25/2012 Normal [facility] HEMATOLOGY Basophils 0.4 0.0 - 1.0 01/25/2012 Normal [facility] HEMATOLOGY Eosinophils 4.1 0.0 - 4.0 01/25/2012 [facility] HEMATOLOGY Lymphocytes # 2.2 1.0 - 5.5 01/25/2012 Normal [facility] HEMATOLOGY Segs-Bands # 1.4 1.5 - 8.1 01/25/2012 LOW [facility] HEMATOLOGY Monocytes 8.5 2.0 - 12.0 01/25/2012 Normal [facility] HEMATOLOGY Basophils # 0.0 0.0 - 0.2 01/25/2012 Normal [facility] HEMATOLOGY Monocytes # 0.4 0.0 - 0.8 01/25/2012 Normal [facility] HEMATOLOGY Eosinophils # 0.2 0.0 - 0.5 01/25/2012 Normal [facility] HEMATOLOGY Segs 34.7 45.0 - 75.0 01/25/2012 LOW [facility] HEMATOLOGY Lymphocytes 52.3 20.0 - 40.0 01/25/2012 [facility] HEMATOLOGY RBC 3.72 4.20 - 5.40 01/25/2012 LOW [facility] HEMATOLOGY MCV 95.6 81.0 - 99.0 01/25/2012 Normal [facility] HEMATOLOGY Hct 35.6 36.0 - 48.0 01/25/2012 [facility] HEMATOLOGY Hgb 11.8 12.0 - 16.0 01/25/2012 LOW [facility] HEMATOLOGY MCH 31.7 27.0 - 31.0 01/25/2012 [facility] HEMATOLOGY MCHC 33.2 32.0 - 36.0 01/25/2012 Normal [facility] HEMATOLOGY RDW 14.1 11.5 - 14.5 01/25/2012 Normal [facility] HEMATOLOGY WBC 4.2 3.7 - 10.4 01/25/2012 Normal [facility] HEMATOLOGY Platelet 246 133 - 450 01/25/2012 Normal [facility] HEMATOLOGY MPV 9.9 7.4 - 10.4 01/25/2012 Normal [facility] BEDSIDE GLUCOSE TESTING Comment1 Notify RN/ 01/25/2012 NA [facility] BEDSIDE GLUCOSE TESTING Gluc POC Lif scn 91 70 - 99 01/25/2012 Normal <sup>2</sup>Interpretive Data: Upper Reportable Limit: 200 mg/dL. [facility] BEDSIDE GLUCOSE TESTING Gluc POC Lif scn 65 70 - 99 01/02/2012 LOW <sup>1</sup>Interpretive Data: Upper Reportable Limit: 200 mg/dL. [facility] BEDSIDE GLUCOSE TESTING Comment1 Notify CHIN/ 01/02/2012 NA [facility] CHEMISTRY AGAP 11.5 10.0 - 20.0 01/02/2012 Normal [facility] CHEMISTRY BUN 4 7 - 22 01/02/2012 LOW [facility] CHEMISTRY Creatinine Lvl 0.6 0.5 - 1.4 01/02/2012 Normal [facility] CHEMISTRY Calcium Lvl 8.3 8.5 - 10.5 01/02/2012 LOW [facility] CHEMISTRY CO2 26 24 - 32 01/02/2012 Normal [facility] CHEMISTRY Glucose Lvl 70 70 - 99 01/02/2012 Normal <sup>2</sup>Interpretive Data: Adult ref erence range values reflect the clinical guidelines
of the [place] [employer]. [facility] CHEMISTRY Sodium Lvl 144 135 - 145 01/02/2012 Normal [facility] CHEMISTRY Potassium Lvl 3.5 3.5 - 5.1 01/02/2012 Normal [facility] CHEMISTRY Chloride Lvl 110 95 - 109 01/02/2012 [facility] HEMATOLOGY Basophils # 0.0 0.0 - 0.2 01/02/2012 Normal [facility] HEMATOLOGY Monocytes # 0.2 0.0 - 0.8 01/02/2012 Normal [facility] HEMATOLOGY Eosinophils # 0.1 0.0 - 0.5 01/02/2012 Normal [facility] HEMATOLOGY Lymphocytes # 1.6 1.0 - 5.5 01/02/2012 Normal [facility] HEMATOLOGY Basophils 0.8 0.0 - 1.0 01/02/2012 Normal [facility] HEMATOLOGY Segs-Bands # 0.6 1.5 - 8.1 01/02/2012 LOW [facility] HEMATOLOGY Eosinophils 4.9 0.0 - 4.0 01/02/2012 [facility] HEMATOLOGY Lymphocytes 63.1 20.0 - 40.0 01/02/2012 [facility] HEMATOLOGY Monocytes 7.1 2.0 - 12.0 01/02/2012 Normal [facility] HEMATOLOGY Plt Morph Ashlee l (01/02/2012 05:05:00) 01/02/2012 Normal [facility] HEMATOLOGY Segs 24.1 45.0 - 75.0 01/02/2012 LOW [facility] RBC Morph Ashlee l (01/02/2012 05:05:00) 01/02/2012 Normal [facility] HEMATOLOGY INR 1.08 0.85 - 1.17 01/02/2012 Normal <sup>3</sup>Interpretive Data: RECOMMEND ED RANGES FOR PROTIME INR:
2.0-3.0 for most medical and surgical thromboembolic states.
2.5-3.5 for artificial heart valves and recurrent embolism.

INR SHOULD BE USED ONLY FOR PATIENTS ON STABLE ANTICOAGULANT THERAPY. [facility] HEMATOLOGY PT 14.2 12.0 - 14.7 01/02/2012 Normal [facility] PTT 32.6 22.9 - 35.8 01/02/2012 Normal <sup>4</sup>Interpretive Data: Heparin T herapeutic Range: 57 - 92 Seconds [facility] Hct 28.1 36.0 - 48.0 01/02/2012 LOW [facility] Hgb 9.5 12.0 - 16.0 01/02/2012 LOW [facility] HEMATOLOGY MCH 31.8 27.0 - 31.0 01/02/2012 [facility] HEMATOLOGY MCV 94.3 81.0 - 99.0 01/02/2012 Normal [facility] HEMATOLOGY MCHC 33.8 32.0 - 36.0 01/02/2012 Normal [facility] HEMATOLOGY Platelet 149 133 - 450 01/02/2012 Normal [facility] RDW 16.1 11.5 - 14.5 01/02/2012 [facility] HEMATOLOGY MPV 10.4 7.4 - 10.4 01/02/2012 Normal [facility] RBC 2.99 4.20 - 5.40 01/02/2012 [facility] HEMATOLOGY WBC 2.6 3.7 - 10.4 01/02/2012 [facility] HEMATOLOGY Hgb 10.7 12.0 - 16.0 01/02/2012 [facility] HEMATOLOGY Hgb 10.4 12.0 - 16.0 01/01/2012 [facility] BLOOD BANK RESULTS ABO/Rh O POS 01/01/2012 Unknown [facility] BLOOD BANK RESULTS Antibody Scrn Negative (01/01/2012 08:51:00) 01/01/2012 [facility] HEMATOLOGY MPV 10.1 7.4 - 10.4 12/31/2011 [facility] HEMATOLOGY Platelet 209 133 - 450 12/31/2011 [facility] HEMATOLOGY Hct 32.1 36.0 - 48.0 12/31/2011 [facility] HEMATOLOGY RDW 16.5 11.5 - 14.5 12/31/2011 [facility] HEMATOLOGY MCV 94.1 81.0 - 99.0 12/31/2011 [facility] HEMATOLOGY MCHC 33.8 32.0 - 36.0 12/31/2011 [facility] HEMATOLOGY MCH 31.8 27.0 - 31.0 12/31/2011 [facility] HEMATOLOGY WBC 3.3 3.7 - 10.4 12/31/2011 [facility] HEMATOLOGY RBC 3.42 4.20 - 5.40 12/31/2011 [facility] HEMATOLOGY Eosinophils # 0.2 0.0 - 0.5 12/31/2011 [facility] HEMATOLOGY Monocytes # 0.2 0.0 - 0.8 12/31/2011 [facility] HEMATOLOGY Basophils # 0.0 0.0 - 0.2 12/31/2011 [facility] HEMATOLOGY Segs-Bands # 1.2 1.5 - 8.1 12/31/2011 [facility] HEMATOLOGY Eosinophils 4.5 0.0 - 4.0 12/31/2011 [facility] HEMATOLOGY Basophils 0.8 0.0 - 1.0 12/31/2011 [facility] HEMATOLOGY Segs 36.3 45.0 - 75.0 12/31/2011 [facility] HEMATOLOGY Lymphocytes 52.7 20.0 - 40.0 12/31/2011 [facility] HEMATOLOGY Monocytes 5.7 2.0 - 12.0 12/31/2011 [facility] HEMATOLOGY Lymphocytes # 1.7 1.0 - 5.5 12/31/2011 [facility] STOOL TESTS Occult Bld Stl Posi tive *ABN* (12/31/2011 00:13:00) Negati ve 12/31/2011 ABN [facility] CHEMISTRY AST 10 0 - 37 12/31/2011 Normal [facility] CHEMISTRY Albumin Lvl 4.5 3.5 - 5.0 12/31/2011 Normal [facility] CHEMISTRY ALT 46 0 - 65 12/31/2011 Normal [facility] CHEMISTRY Bili Total 0.2 0.2 - 1.3 12/31/2011 Normal [facility] CHEMISTRY CO2 23 24 - 32 12/31/2011 LOW [facility] CHEMISTRY Potassium Lvl 3.8 3.5 - 5.1 12/31/2011 Normal [facility] CHEMISTRY Chloride Lvl 107 95 - 109 12/31/2011 Normal [facility] CHEMISTRY Total Protein 7.9 6.4 - 8.4 12/31/2011 Normal [facility] CHEMISTRY Alk Phos 94 39 - 136 12/31/2011 Normal [facility] CHEMISTRY Glucose Lvl 91 70 - 99 12/31/2011 Normal <sup>1</sup>Interpretive Data: Adult ref erence range values reflect the clinical guidelines
of the [place] [employer]. [facility] CHEMISTRY Calcium Lvl 9.3 8.5 - 10.5 12/31/2011 Normal [facility] CHEMISTRY BUN 14 7 - 22 12/31/2011 Normal [facility] CHEMISTRY Sodium Lvl 140 135 - 145 12/31/2011 Normal [facility] CHEMISTRY Creatinine Lvl 0.8 0.5 - 1.4 12/31/2011 Normal [facility] CHEMISTRY AGAP 13.8 10.0 - 20.0 12/31/2011 Normal [facility] CHEMISTRY B/C Ratio 18 6 - 25 12/31/2011 Normal [facility] CHEMISTRY A/G Ratio 1.3 0.7 - 1.6 12/31/2011 Normal [facility] CHEMISTRY Globulin 3.4 2.0 - 4.0 12/31/2011 Normal [facility] CHEMISTRY Lipase Lvl 157 73 - 393 12/31/2011 Normal [facility] HEMATOLOGY RDW 16.3 11.5 - 14.5 12/31/2011 HI [facility] HEMATOLOGY Platelet 263 133 - 450 12/31/2011 Normal [facility] HEMATOLOGY MPV 9.9 7.4 - 10.4 12/31/2011 Normal [facility] HEMATOLOGY Hct 38.6 36.0 - 48.0 [...] ional /LPF *NA* (12/30/2011 23:17:00) Few 12/31/2011 [facility] [place] URINALYSIS UA Hyal Cast 1 [...] mg/dL *NA* (12/30/2011 23:17:00) Negati ve 12/31/2011 [facility] [place] URINALYSIS UA Bili Negat jose maria *NA* (12/30/2011 23:17:00) Negati ve 12/31/2011 NA [place] URINALYSIS UA Turbidity Clear (12/30/2011 23:17:00) Clear 12/31/2011 Normal [facility] URINALYSIS UA Spec Grav 1.019 <=1.030 12/31/2011 Normal [place] URINALYSIS UA Urobilinogen 0.1 - 1.0 10/16/2011 [facility] [place] URINALYSIS UA Color Ltyellow 10/16/2011 [facility] [place] URINALYSIS UA Trans Epi 1 <=0 10/16/2011 [facility] [place] URINALYSIS UA WBC 6 0 - 5 10/16/2011 [facility] [place] URINALYSIS UA RBC 3 0 - 2 10/16/2011 [facility] [place] URINALYSIS UA Mucus Few / LPF *NA* (10/16/2011 01:36:00) None S een 10/16/2011 [facility] [place] URINALYSIS UA Leuk Est Moder ate *ABN* (10/16/2011 01:36:00) Negati ve 10/16/2011 ABN [facility] URINALYSIS UA Sq Epi Occas ional /LPF *NA* (10/16/2011 01:36:00) Few 10/16/2011 NA [facility] URINALYSIS UA Ketones Negat jose maria mg/dL *NA* (10/16/2011 01:36:00) Negati ve 10/16/2011 NA [facility] URINALYSIS UA Bili Negat jose maria *NA* (10/16/2011 01:36:00) Negati ve 10/16/2011 NA [facility] URINALYSIS UA Blood Negat jose maria (10/16/2011 01:36:00) Negati ve 10/16/2011 Normal [facility] URINALYSIS UA Glucose Negat jose maria mg/dL *NA* (10/16/2011 01:36:00) Negati ve 10/16/2011 NA [facility] URINALYSIS UA Protein Negat jose maria mg/dL (10/16/2011 01:36:00) Negati ve 10/16/2011 Normal [facility] URINALYSIS UA Nitrite Negat jose maria (10/16/2011 01:36:00) Negati ve 10/16/2011 Normal [facility] URINALYSIS UA Turbidity Sligh t *ABN* (10/16/2011 01:36:00) Clear 10/16/2011 ABN [facility] URINALYSIS UA Spec Grav 1.019 <=1.030 10/16/2011 Normal [facility] URINALYSIS UA pH 6.0 5.0 - 8.0 10/16/2011 Normal [facility] CHEMISTRY AGAP 14.7 10.0 - 20.0 10/16/2011 Normal [facility] CHEMISTRY Creatinine Lvl 0.7 0.5 - 1.4 10/16/2011 Normal [facility] CHEMISTRY Sodium Lvl 143 135 - 145 10/16/2011 Normal [facility] CHEMISTRY BUN 14 7 - 22 10/16/2011 Normal [facility] CHEMISTRY Glucose Lvl 91 70 - 99 10/16/2011 Normal <sup>1</sup>Interpretive Data: Adult ref erence range values reflect the clinical guidelines of the [place] [employer]. [facility] CHEMISTRY CO2 23 24 - 32 10/16/2011 LOW [facility] CHEMISTRY Calcium Lvl 8.9 8.5 - 10.5 10/16/2011 Normal [facility] CHEMISTRY Potassium Lvl 3.7 3.5 - 5.1 10/16/2011 Normal [facility] CHEMISTRY Chloride Lvl 109 95 - 109 10/16/2011 Normal [facility] HEMATOLOGY Hct 40.3 36.0 - 48.0 10/16/2011 Normal [facility] HEMATOLOGY WBC 4.6 3.7 - 10.4 10/16/2011 Normal [facility] HEMATOLOGY RDW 16.2 11.5 - 14.5 10/16/2011 [facility] HEMATOLOGY MPV 10.2 7.4 - 10.4 10/16/2011 Normal [facility] HEMATOLOGY MCH 30.8 27.0 - 31.0 10/16/2011 Normal [facility] HEMATOLOGY MCHC 33.4 32.0 - 36.0 10/16/2011 Normal [facility] HEMATOLOGY Platelet 243 133 - 450 10/16/2011 Normal [facility] HEMATOLOGY RBC 4.37 4.20 - 5.40 10/16/2011 Normal [facility] HEMATOLOGY Hgb 13.4 12.0 - 16.0 10/16/2011 Normal [facility] HEMATOLOGY MCV 92.2 81.0 - 99.0 10/16/2011 Normal [facility] HEMATOLOGY Lymphocytes # 1.9 1.0 - 5.5 10/16/2011 Normal [facility] HEMATOLOGY Eosinophils # 0.1 0.0 - 0.5 10/16/2011 Normal [facility] HEMATOLOGY Segs-Bands # 2.2 1.5 - 8.1 10/16/2011 Normal [facility] HEMATOLOGY Monocytes # 0.4 0.0 - 0.8 10/16/2011 Normal [facility] HEMATOLOGY Segs 47.8 45.0 - 75.0 10/16/2011 Normal [facility] HEMATOLOGY Monocytes 9.0 2.0 - 12.0 10/16/2011 Normal [facility] HEMATOLOGY Lymphocytes 40.1 20.0 - 40.0 10/16/2011 [facility] HEMATOLOGY Eosinophils 2.8 0.0 - 4.0 10/16/2011 Normal [facility] HEMATOLOGY Basophils 0.3 0.0 - 1.0 10/16/2011 Normal [facility] HEMATOLOGY Basophils # 0.0 0.0 - 0.2 10/16/2011 Normal [facility] CHEMISTRY Glucose Lvl 70 70 - 99 10/10/2011 Normal <sup>3</sup>Interpretive Data: Adult ref erence range values reflect the clinical guidelines of the [place] [employer]. [facility] CHEMISTRY Creatinine Lvl 0.9 0.5 - 1.4 10/10/2011 Normal [facility] CHEMISTRY BUN 10 7 - 22 10/10/2011 Normal [facility] CHEMISTRY CO2 23 24 - 32 10/10/2011 LOW [facility] CHEMISTRY Calcium Lvl 8.8 8.5 - 10.5 10/10/2011 Normal [facility] CHEMISTRY Chloride Lvl 108 95 - 109 10/10/2011 Normal [facility] CHEMISTRY Potassium Lvl 4.0 3.5 - 5.1 10/10/2011 Normal [facility] CHEMISTRY Sodium Lvl 143 135 - 145 10/10/2011 Normal [facility] CHEMISTRY AGAP 16.0 10.0 - 20.0 10/10/2011 Normal [facility] HEMATOLOGY Segs-Bands # 1.3 1.5 - [...] Monocytes 5.5 2.0 - 12.0 10/10/2011 Normal [facility] HEMATOLOGY Lymphocytes 55.8 20.0 - 40.0 10/10/2011 [facility] [place] HEMATOLOGY Segs 34.7 45.0 - 75.0 10/10/2011 [facility] HEMATOLOGY Platelet 187 133 - 450 10/10/2011 Normal [facility] HEMATOLOGY RDW 15.7 11.5 - 14.5 10/10/2011 [facility] HEMATOLOGY MCHC 33.7 32.0 - 36.0 10/10/2011 Normal [facility] HEMATOLOGY MPV 10.1 7.4 - 10.4 10/10/2011 Normal [facility] HEMATOLOGY Hct 35.6 36.0 - 48.0 10/10/2011 LOW [facility] HEMATOLOGY WBC 3.8 3.7 - 10.4 10/10/2011 Normal [facility] HEMATOLOGY MCV 91.6 81.0 - 99.0 10/10/2011 Normal [facility] HEMATOLOGY MCH 30.9 27.0 - 31.0 10/10/2011 Normal [facility] HEMATOLOGY Hgb 12.0 12.0 - 16.0 10/10/2011 Normal [facility] HEMATOLOGY RBC 3.89 4.20 - 5.40 10/10/2011 LOW [facility] BEDSIDE GLUCOSE TESTING Gluc POC Lif scn 95 70 - 99 10/10/2011 Normal <sup>1</sup>Interpretive Data: Upper Reportable Limit: 200 mg/dL. [facility] BEDSIDE GLUCOSE TESTING Comment1 Notify RN/ 10/10/2011 NA [facility] BLOOD BANK RESULTS ABO/Rh O POS 10/09/2011 Unknown [facility] BLOOD BANK RESULTS Antibody Scrn Negative (10/09/2011 10:34:00) 10/09/2011 Normal [facility] CHEMISTRY Ferritin Lvl 6 5 - 204 10/09/2011 Normal [facility] CHEMISTRY Vitamin B12 Lvl 131 211 - 911 10/09/2011 LOW [facility] CHEMISTRY Folate Lvl 15.6 >=3.0 10/09/2011 Normal [facility] CHEMISTRY Iron 57 30 - 160 10/09/2011 Normal [facility] CHEMISTRY % Satur Fe 12 12 - 57 10/09/2011 Normal [facility] CHEMISTRY TIBC 471 228 - 428 10/09/2011 [facility] CHEMISTRY UIBC 414 110 - 370 10/09/2011 [facility] BLOOD BANK RESULTS RBC product Product available 2 (10/09/2011 09:01:00) 10/09/2011 Normal <sup>2</sup>Result Comment: 10/09/2011 12:02 ABBEY called to diana 10/09/2011 12:02 [facility] HEMATOLOGY Hgb 8.5 12.0 - 16.0 10/09/2011 LOW [facility] HEMATOLOGY Hct 26.1 36.0 - 48.0 10/09/2011 LOW [facility] CHEMISTRY AGAP 11.4 10.0 - 20.0 10/09/2011 Normal [facility] CHEMISTRY Sodium Lvl 147 135 - 145 10/09/2011 [facility] CHEMISTRY Creatinine Lvl 1.0 0.5 - 1.4 10/09/2011 Normal [facility] CHEMISTRY BUN 9 7 - 22 10/09/2011 Normal [facility] CHEMISTRY Potassium Lvl 3.4 3.5 - 5.1 10/09/2011 LOW [facility] CHEMISTRY Glucose Lvl 90 70 - 99 10/09/2011 Normal <sup>4</sup>Interpretive Data: Adult ref erence range values reflect the clinical guidelines of the [place] [employer]. [facility] CHEMISTRY Calcium Lvl 8.5 8.5 - 10.5 10/09/2011 Normal [facility] CHEMISTRY CO2 28 24 - 32 10/09/2011 Normal [facility] CHEMISTRY Chloride Lvl 111 95 - 109 10/09/2011 [facility] HEMATOLOGY Platelet 211 133 - 450 10/09/2011 Normal [facility] HEMATOLOGY RDW 15.1 11.5 - 14.5 10/09/2011 [facility] HEMATOLOGY MPV 9.5 7.4 - 10.4 10/09/2011 Normal [facility] HEMATOLOGY MCHC 33.3 32.0 - 36.0 10/09/2011 Normal [facility] HEMATOLOGY WBC 4.1 3.7 - 10.4 10/09/2011 Normal [facility] HEMATOLOGY RBC 3.11 4.20 - 5.40 10/09/2011 LOW [facility] HEMATOLOGY Hct 28.1 36.0 - 48.0 10/09/2011 [facility] HEMATOLOGY MCV 90.4 81.0 - 99.0 10/09/2011 Normal [facility] HEMATOLOGY Hgb 9.4 12.0 - 16.0 10/09/2011 LOW [facility] HEMATOLOGY MCH 30.1 27.0 - 31.0 10/09/2011 Normal [facility] HEMATOLOGY Lymphocytes 45.7 20.0 - 40.0 10/09/2011 [facility] HEMATOLOGY Segs 41.6 45.0 - 75.0 10/09/2011 LOW [facility] HEMATOLOGY Segs-Bands # 1.7 1.5 - 8.1 10/09/2011 Normal [facility] HEMATOLOGY Basophils 0.5 0.0 - 1.0 10/09/2011 Normal [facility] HEMATOLOGY Eosinophils 2.1 0.0 - 4.0 10/09/2011 Normal [facility] HEMATOLOGY Monocytes 10.1 2.0 - 12.0 10/09/2011 Normal [facility] HEMATOLOGY Lymphocytes # 1.9 1.0 - 5.5 10/09/2011 Normal [facility] HEMATOLOGY Eosinophils # 0.1 0.0 - 0.5 10/09/2011 Normal [facility] HEMATOLOGY Basophils # 0.0 0.0 - 0.2 10/09/2011 Normal [facility] HEMATOLOGY Monocytes # 0.4 0.0 - 0.8 10/09/2011 Normal [facility] Pathology Reports No Data Provided for This Section Diagnostic Reports Report Value Date Source Abdomen/Pelvis w IV contrast CT Patient Name: LOGAN LEIVA : 1975; Age: 40 years Female MR: [id number] Study: Abdomen/Pelvis w IV contrast CT 07/13/2016 5:27 AM [employer] CLINICAL INDICATION: Abdominal pain, acute Pt states [...] abnormalities. Hepatic steatosis. Mildly distended bladder. SL: [id number] 07/13/2016 [facility] Chest 2 views DX Study: Chest 2 views DX Clinical Indication: Cough and fever Comparison: Chest x-ray from 05/02/2016 FINDINGS: The cardiac silhouette is normal in size. The lungs are clear and without consolidation or congestion. No pleural effusion or pneumothorax is seen. The osseous structures are unremarkable. IMPRESSION: No acute cardiopulmonary disease. SL: CHANA 07/13/2016 [facility] Small bowel series DX Small jamir wel series DX CLINICAL HISTORY: Abdominal distension; NOTE: No fluoroscopy was utilized. COMPARISON: None TECHNIQUE: Serial overhead images of the abdomen were performed at 15 to 30 minute intervals following ingestion of oral Omnipaque. Postsurgical change is noted in the lower lumbar spine. FINDINGS: [employer] study reveals a nonobstructive bowel gas pattern. [...] radiographic evidence for small bowel obstruction. SL: [id number] 05/04/2016 [facility] Enterography Abd/Pel w IV contrast CT [...] in the pelvis. 7. Fatty liver. SL: [id number] 05/02/2016 [facility] Chest 1view DX Study: Chest 1v [...] in the lower SVC. SL: WRArianna 05/02/2016 [facility] Nasogastric tube placement VR NASOGASTRIC TUBE PLACEMENT WITH FLUOROSCOPY: HISTORY: Abdominal distention with history of gastrojejunostomy. Nasogastric tube placement under fluoroscopy was requested. PROCEDURE: A 16-Burkinan sump tube was placed under fluoroscopic guidance [...] to her hospital room in stable condition [id number] 05/02/2016 [facility] Abdomen 2 views DX ABDOMEN, 2 VIEW HISTORY: Abdominal distension; COMPARISON: Abdominal radiography dated 09/20/[address] abdomen/pelvis dated 04/30/2016 FINDINGS: Bowel gas pattern is nonobstructive. No free air collecting under either hemidiaphragm. Cholecystectomy and lumbar fusion are noted.. SL: JULIUS 05/01/2016 [facility] Abdomen/Pelvis w IV contrast CT Clinical [...] to m arkedly distended urinary bladder. SL: [id number] 04/30/2016 [facility] Abdomen/Pelvis IV contrast only CT EXAM: CT ABDOMEN AND PELVIS WITH CONTRAST DATE: 04/12/2016 12:23 AM [employer] INDICATION: Abdominal pain, acute. COMPARISON: CT abdomen [...] 3. Moderate distention of the bladder. SL: [id number] 04/12/2016 [facility] Ankle 3 views DX EXAM: XR RIGH T ANKLE, 3 VIEWS DATE: 04/11/2016 11:32 PM [employer] INDICATION: Pain from a fall. COMPARISON: None Available. TECHNIQUE: Frontal, oblique, and lateral views of the right ankle were obtained. FINDINGS: No fracture or malalignment is present. The soft tissues are within normal limits. There are no radiopaque foreign bodies. IMPRESSION: No acute fracture or dislocation. SL: [id number] 04/11/2016 [facility] Brain wo contrast CT Clinical Indication: [...] the appropriate clinical setting. SL: JORGE 04/05/2016 [facility] Abdomen/Pelvis w IV contrast CT Study: [...] process in the abdomen or pelvis 04/05/2016 [facility] Abdomen RUQ US Clinical Indica tion: [...] 2. Patient has had a cholecystectomy. SL: FERDY 03/02/2016 [facility] Forearm 2 views DX Left forear [...] obscures fine bony detail. SL: 14 03/20/2015 [facility] Abdomen AP DX HISTORY: Abdomin al pain. Abdomen one view. Comparison 12/16/2013. Normal bowel gas pattern. Right upper quadrant surgical clips. Previous lower lumbar laminectomy and fusion. Bilateral pelvic phleboliths. No other pathologic calcification. IMPRESSION: No specific acute finding. SL:13 09/20/2014 [facility] Abdomen wo contrast MRI MRCP: TECHNIQUE: [...] excluded. 3. Normal pancreatic duct. SL:13 09/14/2014 [facility] Foot series LEFT FOOT SERIES- 3 [...] pad region. Otherwise negative. SL: 13 02/09/2014 [facility] Abdomen AP view Portable abdom en: [...] IMPRESSION: Nonspecific bowel distention without obstruction. SL:12/16/2013 [facility] Abdomen complete US HISTORY: A bdominal [...] laboratory data. No other acute findings SL:12/15/2013 [facility] Chest 2 views HISTORY: Abnorma l chest sounds. Two views chest. Lungs are clear. Heart size normal. There is no pleural effusion or pneumothorax. No specific osseous abnormality. IMPRESSION: No acute finding. SL:12/10/2013 [facility] Brain wo contrast CT CT BRAIN WITHOUT CONTRAST INDICATION: Headache with dizziness COMPARISON: CT brain 09/06/2013 FINDINGS: There is no evidence of acute vascular insults, space occupying lesions, hemorrhage, hydrocephalus, midline shift, or extra-axial collections. The calvarium is intact. IMPRESSION: No acute intracranial abnormalities are visualized. SL: 12/10/2013 [facility] Spine lumbar wo contrast MRI M [place] LUMBAR SPINE WITHOUT CONTRAST COMPARISON: 03/07/2012 radiograph [...] chest. New PICC line satisfactory SL:13 09/19/2013 [facility] Chest 2 views EXAM: Chest 2 views HISTORY: Abnormal chest sounds. COMPARISON: 06/05/2013. TECHNIQUE: Frontal and lateral views of the chest. FINDINGS: Heart size normal. The lungs are clear. No pleural effusion. IMPRESSION: Negative chest radiographs. SL: 14 09/19/2013 [facility] Abdomen AP view Examination: A bdomen, [...] Nonobstructive bowel gas pattern. SL: 12 09/09/2013 [facility] Abdomen wo contrast MRI MR ABD [...] and presum ed surgically absent. SL: 09/07/2013 [facility] Brain contrast CT Examinati on: CT [...] IMPRESSION: No acute intracranial abnormality. SL: 09/06/2013 [facility] Bowel small bowel series Small bowel series: COMPARISON: CT abdomen pelvis 09/01/2013 The doctor assistant film reveals a nonobstructive bowel gas pattern. [...] significant obstruction. Fluoroscopy Time: 0.5 minutes SL:09/06/2013 [facility] Abdomen contrast MRI MRCP. TECHNIQUE: Multiple [...] duct. No definite evidence for choledocholithiasis. SL:09/03/2013 [facility] Abdomen/Pelvis w IV contrast CT CT [...] CT of the abdomen or pelvis. SL:09/01/2013 [facility] Abdomen AP view PROCEDURE: Ab domen 1 view REASON FOR EXAM: See Clinic Indication CLINICAL INDICATION: Abdominal pain, acute COMPARISON: 09/27/2012. FINDINGS: Nonspecific bowel gas pattern is present. No definite free air. Abundance of stool with within the colon. Multiple phleboliths are present in the pelvis. Postoperative cholecystectomy. Postoperative laminectomy and posterior spinal fusion are present. SL: 06/08/2013 [facility] Sinus wo contrast CT CT SINUSE [...] infectious process are identified. SL: 17 06/06/2013 [facility] Chest 2 views EXAM: Chest 2 views HISTORY: Cough, fever. COMPARISON: 02/12/2013. TECHNIQUE: Frontal and lateral views of the chest. FINDINGS: Heart size normal. The lungs are clear. No pleural effusion. IMPRESSION: Negative chest radiographs. SL:13 06/05/2013 [facility] Chest 2 views HISTORY: Chest p ain. Chest 2 views. Lungs are clear. Cardiomediastinal silhouette normal. There is no pleural effusion or pneumothorax. IMPRESSION: No acute findings. 12 02/12/2013 [facility] Hip min 2 views EXAM: RIGHT [...] are unremarkable. IMPRESSION: No acute abnormality. 09/27/2012 [facility] Brain wo contrast CT CT [...] Normal CT scan of the brain. 09/27/2012 [facility] Consultation Notes No Data Provided for This Section Discharge Summaries No Data Provided for This Section History and Physicals No Data Provided for This Section Vital Signs Vital Sign Value Date Comments Source Respitory Rate 16 08/05/2016 [facility] Systolic (mm Hg) 106 08/05/2016 [facility] Diastolic (mm Hg) 67 08/05/2016 [facility] Heart Rate 66 08/05/2016 [facility] Temperature Oral (F) 96.8 F 08/05/2016 [facility] Height 170.18 cm 08/05/2016 [facility] Weight 68.636 08/05/2016 [facility] BMI Calculated 23.7 08/05/2016 [facility] Temperature Oral (F) 97.5 F 08/05/2016 [facility] Systolic (mm Hg) 103 08/05/2016 [facility] Diastolic (mm Hg) 72 08/05/2016 [facility] Heart Rate 108 08/05/2016 [facility] Respitory Rate 20 08/05/2016 [facility] Respitory Rate 16 07/13/2016 [facility] Heart Rate 74 07/13/2016 [facility] Systolic (mm Hg) 116 07/13/2016 [facility] Diastolic (mm Hg) 72 07/13/2016 [facility] Temperature Oral (F) 97.8 F 07/13/2016 [facility] Heart Rate 76 07/13/2016 [facility] Systolic (mm Hg) 122 07/13/2016 [facility] Diastolic (mm Hg) 76 07/13/2016 [facility] Respitory Rate 19 07/13/2016 [facility] Systolic (mm Hg) 112 07/13/2016 [facility] Diastolic (mm Hg) 62 07/13/2016 [facility] Respitory Rate 17 07/13/2016 [facility] Heart Rate 72 07/13/2016 [facility] Temperature Oral (F) 98 F 07/13/2016 [facility] Height 167.64 cm 07/13/2016 [facility] BMI Calculated 23.13 07/13/2016 [facility] Weight 65 0 07/13/2016 [facility] Temperature Oral (F) 98.3 F 07/13/2016 [facility] Respitory Rate 17 05/10/2016 [facility] Temperature Oral (F) 98.5 F 05/10/2016 [facility] Heart Rate 90 05/10/2016 [facility] Systolic [...] cm 04/06/2016 [facility] BMI Calculated 23.51 04/06/2016 [facility] Heart Rate 71 04/06/2016 [facility] Systolic (mm Hg) 129 04/06/2016 [facility] Diastolic (mm Hg) 88 04/06/2016 [facility] Systolic (mm Hg) 130 03/03/2016 [facility] Diastolic (mm Hg) 86 03/03/2016 [facility] Respitory Rate 18 03/03/2016 [facility] Temperature Oral (F) 98.2 F 03/03/2016 [facility] Heart Rate 88 03/03/2016 [facility] Temperature Oral (F) 98.0 F 03/03/2016 [...] 03/21/2015 [facility] Diastolic (mm Hg) 77 03/21/2015 [facility] Temperature Oral (F) 98.3 F 03/21/2015 [facility] Height 167.64 cm 03/21/2015 [facility] Systolic (mm Hg) 123 09/30/2014 [facility] Diastolic (mm Hg) 85 09/30/2014 [facility] Temperature Oral (F) 98 F 09/30/2014 [facility] Respitory Rate 16 09/30/2014 [facility] Heart Rate 72 09/30/2014 [facility] Heart Rate 89 09/30/2014 [facility] Systolic (mm Hg) 114 09/30/2014 [facility] Diastolic (mm Hg) 76 09/30/2014 [facility] Temperature Oral (F) 97.9 F 09/30/2014 [facility] Respitory Rate 16 09/30/2014 [facility] Respitory Rate 16 09/29/2014 [facility] Systolic (mm Hg) 110 09/29/2014 [facility] Diastolic (mm Hg) 71 09/29/2014 [facility] Heart Rate 80 09/29/2014 [facility] Temperature Oral (F) 97.5 F 09/29/2014 [facility] BMI Calculated 23.29 09/14/2014 [facility] Weight 65.455 09/14/2014 [facility] Height 167.64 cm 09/14/2014 [facility] BMI Calculated 20.72 09/14/2014 [facility] Weight 60 0 09/14/2014 [facility] Height 170.18 cm 09/14/2014 [facility] Respitory Rate 18 02/09/2014 [facility] Heart Rate 63 02/09/2014 [facility] Systolic (mm Hg) 117 02/09/2014 [facility] Diastolic (mm Hg) 79 02/09/2014 [facility] Temperature Oral (F) 97.6 F 02/09/2014 [facility] BMI Calculated 23.61 02/09/2014 [facility] Height 167.64 cm 02/09/2014 [facility] Weight 66.364 02/09/2014 [facility] Diastolic (mm Hg) 75 02/09/2014 [facility] Respitory Rate 18 02/09/2014 [facility] Heart Rate 75 02/09/2014 [facility] Temperature Oral (F) 97.7 F 02/09/2014 [facility] Systolic (mm Hg) 117 02/09/2014 [facility] Weight 66.364 02/09/2014 [facility] BMI Calculated 23.61 02/09/2014 [facility] Height 167.64 cm 02/09/2014 [facility] Diastolic (mm Hg) 69 2013 [facility] Systolic (mm Hg) 101 2013 [facility] Heart Rate 86 2013 [facility] Respitory Rate 17 2013 [facility] Temperature Oral (F) 98.2 F 2013 [facility] Diastolic (mm Hg) 78 2013 [facility] Systolic (mm Hg) 113 2013 [facility] Respitory Rate 18 2013 [facility] Temperature Oral (F) 98.0 F 2013 [facility] Heart Rate 80 2013 [facility] Diastolic (mm Hg) 82 2013 [facility] [facility] Systolic (mm Hg) 125 2013 [facility] Heart Rate 88 2013 [facility] Temperature Oral (F) 97.4 F 2013 [facility] Respitory Rate 17 2013 [facility] Height 170.18 cm 12/10/2013 [facility] BMI Calculated 21.97 12/10/2013 [facility] Weight 63.636 12/10/2013 [facility] Height 170.18 cm 12/07/2013 [facility] BMI Calculated 22.29 12/07/2013 [facility] Weight 64.545 12/07/2013 [facility] Systolic (mm Hg) 116 12/07/2013 [facility] Temperature Oral (F) 98.4 F 12/07/2013 [facility] Respitory Rate 18 12/07/2013 [facility] Heart Rate 71 12/07/2013 [facility] Diastolic (mm Hg) 74 12/07/2013 [facility] Temperature Oral (F) 98.3 F 09/24/2013 [facility] Systolic (mm Hg) 115 09/24/2013 [facility] Diastolic (mm Hg) 77 09/24/2013 [facility] Heart Rate 108 09/24/2013 [facility] Respitory Rate 16 09/24/2013 [facility] Heart Rate 92 09/24/2013 [facility] Temperature Oral (F) 98.1 F 09/24/2013 [facility] Respitory Rate 16 09/24/2013 [facility] Systolic (mm Hg) 112 09/24/2013 [facility] Diastolic (mm Hg) 75 09/24/2013 [facility] Temperature Oral (F) 98.2 F 09/24/2013 [facility] Systolic (mm Hg) 114 09/24/2013 [facility] Respitory Rate 16 09/24/2013 [facility] Heart Rate 97 09/24/2013 [facility] Diastolic (mm Hg) 73 09/24/2013 [facility] BMI Calculated 23.29 09/18/2013 [facility] Height 167.64 cm 09/18/2013 [facility] Weight 65.455 09/18/2013 [facility] Temperature Oral (F) 98.1 F 09/13/2013 [facility] Systolic (mm Hg) 104 09/13/2013 [facility] Diastolic (mm Hg) 62 09/13/2013 [facility] Diastolic (mm Hg) 50 09/13/2013 [facility] Systolic (mm Hg) 98 09/13/2013 [facility] Temperature Oral (F) 98.1 F 09/13/2013 [facility] Systolic (mm Hg) 110 09/13/2013 [facility] Diastolic (mm Hg) 64 09/13/2013 [facility] BMI Calculated 24.75 09/12/2013 [facility] Height 167.64 cm 09/12/2013 [facility] Weight 69.545 09/12/2013 [facility] Respitory Rate 18 09/12/2013 [facility] Temperature Oral (F) 98.2 F 09/12/2013 [facility] Heart Rate 100 09/12/2013 [facility] Temperature Oral (F) 97.9 F 09/10/2013 [facility] Heart Rate 72 09/10/2013 [facility] Respitory Rate 16 09/10/2013 [facility] Diastolic (mm Hg) 62 09/10/2013 [facility] Systolic (mm Hg) 111 09/10/2013 [facility] Temperature Oral (F) 97.9 F 09/10/2013 [facility] Heart Rate 92 09/10/2013 [facility] Respitory Rate 16 09/10/2013 [facility] Systolic (mm Hg) 114 09/10/2013 [facility] Diastolic (mm Hg) 66 09/10/2013 [facility] Systolic (mm Hg) 103 09/10/2013 [facility] Diastolic (mm Hg) 61 09/10/2013 [facility] Heart Rate 75 09/10/2013 [facility] Temperature Oral (F) 98.2 F 09/10/2013 [facility] Respitory Rate 18 09/10/2013 [facility] Weight 67.273 09/02/2013 [facility] BMI Calculated 23.94 09/02/2013 [facility] Height 167.64 cm 09/02/2013 [facility] Temperature Oral (F) 97.1 F 09/01/2013 [facility] Diastolic (mm Hg) 82 09/01/2013 [facility] Systolic (mm Hg) 129 09/01/2013 [facility] Respitory Rate 18 09/01/2013 [facility] Heart Rate 87 09/01/2013 [facility] Temperature Oral (F) 97.2 F 09/01/2013 [facility] Respitory Rate 18 09/01/2013 [facility] Systolic (mm Hg) 127 09/01/2013 [facility] Diastolic (mm Hg) 80 09/01/2013 [facility] Heart Rate 70 09/01/2013 [facility] Systolic (mm Hg) 138 09/01/2013 [facility] Diastolic (mm Hg) 96 09/01/2013 [facility] Respitory Rate 18 09/01/2013 [facility] Heart Rate 72 09/01/2013 [facility] Temperature Oral (F) 97.6 F 09/01/2013 [facility] Weight 63.636 09/01/2013 [facility] Systolic (mm Hg) 132 06/10/2013 [facility] Diastolic (mm Hg) 88 06/10/2013 [facility] Temperature Oral (F) 98.4 F 06/10/2013 [facility] Respitory Rate 18 06/10/2013 [facility] Heart Rate 74 06/10/2013 [facility] Respitory Rate 16 06/10/2013 [facility] Diastolic (mm Hg) 60 06/10/2013 [facility] Temperature Oral (F) 98.0 F 06/10/2013 [facility] Systolic (mm Hg) 104 06/10/2013 [facility] Heart Rate 77 06/10/2013 [facility] Respitory Rate 16 06/10/2013 [facility] Heart Rate 78 06/10/2013 [facility] Temperature Oral (F) 98.0 F 06/10/2013 [facility] Systolic (mm Hg) 107 06/10/2013 [facility] Diastolic (mm Hg) 62 06/10/2013 [facility] Weight 66.364 06/05/2013 [facility] Height 170.18 cm 06/05/2013 [facility] Respitory Rate 16 02/12/2013 [facility] Systolic (mm Hg) 114 02/12/2013 [facility] Diastolic (mm Hg) 75 02/12/2013 [facility] Heart Rate 82 02/12/2013 [facility] Respitory Rate 18 02/12/2013 [facility] Systolic (mm Hg) 124 02/12/2013 [facility] Diastolic (mm Hg) 70 02/12/2013 [facility] Heart Rate 82 02/12/2013 [facility] Systolic (mm Hg) 133 02/12/2013 [facility] Diastolic (mm Hg) 75 02/12/2013 [facility] Heart Rate 83 02/12/2013 [facility] Respitory Rate 18 02/12/2013 [facility] Weight 67.727 02/12/2013 [facility] Height 170.18 cm 02/12/2013 [facility] Temperature Oral (F) 98.8 F 02/12/2013 [facility] Weight 66.818 10/19/2012 [facility] Height 170.18 cm 10/19/2012 [facility] Weight 64.545 09/28/2012 [facility] Height 170.18 cm 09/28/2012 [facility] Temperature Oral (F) 97.9 F 08/11/2012 [facility] Heart Rate 71 08/11/2012 [facility] Diastolic (mm Hg) 74 08/11/2012 [facility] Respitory Rate 18 08/11/2012 [facility] Systolic (mm Hg) 109 08/11/2012 [facility] Heart Rate 73 08/11/2012 [facility] Diastolic (mm Hg) 60 08/11/2012 [facility] Systolic (mm Hg) 98 08/11/2012 [facility] Respitory Rate 18 08/11/2012 [facility] Temperature Oral (F) 97.9 F 08/11/2012 [facility] Diastolic (mm Hg) 55 08/11/2012 [facility] Heart Rate 64 08/11/2012 [facility] Respitory Rate 19 08/11/2012 [facility] Systolic (mm Hg) 87 08/11/2012 [facility] Temperature Oral (F) 97.6 F 08/11/2012 [facility] Weight 66.818 08/06/2012 [facility] Height 167.64 cm 08/06/2012 [facility] Height 167.64 cm 08/06/2012 [facility] Weight 66.818 08/06/2012 [facility] Diastolic (mm Hg) 70 07/19/2012 [facility] Heart Rate 92 07/19/2012 [facility] Systolic (mm Hg) 112 07/19/2012 [facility] Respitory Rate 18 07/19/2012 [facility] Temperature Oral (F) 97.4 F 07/19/2012 [facility] Diastolic (mm Hg) 76 07/19/2012 [facility] Systolic (mm Hg) 118 07/19/2012 [facility] Respitory Rate 18 07/19/2012 [facility] Heart Rate 104 07/19/2012 [facility] Temperature Oral (F) 97.8 F 07/19/2012 [facility] Systolic (mm Hg) 115 07/19/2012 [facility] Respitory Rate 18 07/19/2012 [facility] Temperature Oral (F) 97.5 F 07/19/2012 [facility] Diastolic (mm Hg) 71 07/19/2012 [facility] Heart Rate 86 07/19/2012 [facility] Height 167.64 cm 07/18/2012 [facility] Weight 66.364 07/18/2012 [facility] Weight 66.364 07/18/2012 [facility] Height 167.64 cm 07/18/2012 [facility] Height 170.18 cm 07/17/2012 [facility] Weight 66.364 07/17/2012 [facility] Weight 66.364 07/16/2012 [facility] Height 170.18 cm 07/16/2012 [facility] Diastolic (mm Hg) 73 07/11/2012 [facility] Systolic (mm Hg) 114 07/11/2012 [facility] Respitory Rate 17 07/11/2012 [facility] Heart Rate 101 07/11/2012 [facility] Temperature Oral (F) 97.7 F 07/11/2012 [facility] Diastolic (mm Hg) 82 07/11/2012 [facility] Temperature Oral (F) 97.9 F 07/11/2012 [facility] Respitory Rate 18 07/11/2012 [facility] Systolic (mm Hg) 124 07/11/2012 [facility] Heart Rate 79 07/11/2012 [facility] Diastolic (mm Hg) 73 07/11/2012 [facility] Temperature Oral (F) 97.7 F 07/11/2012 [facility] Respitory Rate 16 07/11/2012 [facility] Systolic (mm Hg) 112 07/11/2012 [facility] Heart Rate 92 07/11/2012 [facility] Height 170.18 cm 07/09/2012 [facility] Weight 66.818 07/09/2012 [facility] Weight 59.091 07/08/2012 [facility] Height 170.18 cm 07/07/2012 [facility] Weight 66.364 07/07/2012 [facility] Height 170.18 cm 05/31/2012 [facility] Weight 65.000 05/31/2012 [facility] Weight 61.818 04/08/2012 [facility] Height 167.64 cm 04/08/2012 [facility] Height 170.18 cm 02/16/2012 [facility] Weight 61.818 02/16/2012 [facility] Height 167.64 cm 01/25/2012 [facility] Weight 62.727 01/25/2012 [facility] Systolic (mm Hg) 110 01/02/2012 [facility] Heart Rate 60 01/02/2012 [facility] Diastolic (mm Hg) 82 01/02/2012 [facility] Respitory Rate 16 01/02/2012 [facility] Systolic (mm Hg) 142 01/02/2012 [facility] Diastolic (mm Hg) 73 01/02/2012 [facility] Respitory Rate 16 01/02/2012 [facility] Diastolic (mm Hg) 77 01/02/2012 [facility] Systolic (mm Hg) 113 01/02/2012 [facility] Respitory Rate 15 01/02/2012 [facility] Heart Rate 54 01/02/2012 [facility] Temperature Oral (F) 97.5 F 01/02/2012 [facility] Heart Rate 65 01/02/2012 [facility] Temperature Oral (F) 95.5 F 01/02/2012 [facility] Temperature Oral (F) 95.4 F 01/02/2012 [facility] Height 170.18 cm 12/31/2011 [facility] Weight 66.818 12/31/2011 [facility] Weight 66.875 12/31/2011 [facility] Weight 63.636 10/16/2011 [facility] Height 167.64 cm 10/16/2011 [facility] Systolic (mm Hg) 95 10/10/2011 [facility] Diastolic (mm Hg) 60 10/10/2011 [facility] Temperature Oral (F) 98.3 F 10/10/2011 [facility] Heart Rate 71 10/10/2011 [facility] Respitory Rate 16 10/10/2011 [facility] Respitory Rate 16 10/10/2011 [facility] Systolic (mm Hg) 109 10/10/2011 [facility] Temperature Oral (F) 97.6 F 10/10/2011 [facility] Heart Rate 52 10/10/2011 [facility] Diastolic (mm Hg) 71 10/10/2011 [facility] Heart Rate 47 10/10/2011 [facility] Respitory Rate 16 10/10/2011 [facility] Temperature Oral (F) 98.4 F 10/10/2011 [facility] Systolic (mm Hg) 104 10/10/2011 [facility] Diastolic (mm Hg) 62 10/10/2011 [facility] Height 170.18 cm 10/09/2011 [facility] Weight 62.727 10/09/2011 [facility] Encounters Location Location Details Encounter Type Encounter Number Reason For Visit Attending Provider ADM Date DC Date Status Source [facility] [id number] JAGDISH RIVERO 10/09/2011 10/10/2011 [facility]charged [facility] [id number] SHAJIGUERO BHATTEL 10/16/2011 10/16/2011 [facility] [id number] ANTONIO HERMINIA 12/30/2011 12/31/2011 [facility] [id number] ENAYET RAHIM 12/31/2011 01/02/2012 [facility]charged [facility] [id number] ASEM SOUMAN 01/24/2012 01/25/2012 [facility] [id number] ASEM SOUMAN 02/16/2012 02/16/2012 Discharged [facility] [place] [id number] 719.45 - JOINT PAIN-PELV TEO CONDON 03/07/2012 03/07/2012 Active [facility] [id number] RAMSES KOROMA 04/08/2012 04/08/2012 [facility] [id number] ANTONIO BETANCOURT 05/31/2012 05/31/2012 [facility] [id number] ANTONIO BETANCOURT 07/06/2012 07/07/2012 [facility] [id number] ROOSEVELT ALDRICH 07/08/2012 07/08/2012 Discharged [facility] [id number] URINARY RETENTION ENAYET RAHIM 07/10/2012 07/11/2012 [facility] [id number] RAMSES KOROMA 07/15/2012 07/16/2012 [facility]charged [facility] [id number] ENAYET RAHIM 07/17/2012 07/19/2012 [facility]charged [facility] [id number] ABDOMINAL PAIN ENAYET RAHIM 08/07/2012 08/11/2012 Active [facility] Emergency [id number] RENÉE RIOS 09/27/2012 09/28/2012 Active [facility] [id number] OVERDOSE ARI CHURCH 10/19/2012 10/19/2012 Active [facility] [id number] CHRISTION RICE 02/11/2013 02/12/2013 Discharged [facility] Inpatient [id number] ASTHMATIC BRONCHI TIS ENAYET RAHIM 06/06/2013 06/10/2013 Active [facility] [id number] 41 Antonio Riojas 09/01/2013 09/01/2013 [facility] Inpatient [id number] Enayet Rahim 09/02/2013 09/10/2013 [facility] [id number] 43 Antonio Herminia 09/12/2013 09/13/2013 [facility] Inpatient [id number] Enayet Rahim 09/18/2013 09/24/2013 [facility] [place] [facility] Di[facility] Services [id number] 02 Enayet Rahim 12/05/2013 12/06/2013 [facility] [id number] 44 Antonio Trane 12/07/2013 12/07/2013 [facility] Inpatient [id number] Enayet Rahim 12/12/2013 2013 [facility] [id number] 45 Prasad Roslyn 02/09/2014 02/09/2014 [facility] Inpatient [id number] Morgan Ochoa 09/14/2014 09/30/2014 [facility] [id number] Yanet Sarah 03/21/2015 03/21/2015 [facility] Emergency [id number] Roosevelt Aldrich 03/03/2016 03/03/2016 [facility] Emergency [id number] Yanet Sarah 04/05/2016 04/06/2016 [facility] Observation [id number] Nathalia Verdin 04/12/2016 04/12/2016 [facility] Inpatient [id number] Juan Pablo Garza 04/29/2016 05/11/2016 [facility] Observation [id number] Ezekiel Márquez 07/13/2016 07/13/2016 [facility] Emergency [id number] Wei Liang 08/05/2016 08/05/2016 [facility] OD [id number] 789.00 - ABDMNAL PAIN UN ENAYET RAHIM Cancel [facility] [place] Procedures Procedure Code Date Perfomer Comments Source Biopsy of liver [id number] 05/15/2011 [facility] Gastric bypass operation 39947 011 [facility] Abdominal hysterectomy [id number] 14 [facility] Hernia repair [id number] [facility] Back fusion [id number] [facility] Internal and external hemorrhoidectomy a nd anal fissurectomy [id number] [facility] Cholecystectomy [id number] [facility] Foot joint operations [id number] [facility] Tonsil operation [id number] [facility] Abdominal hysterectomy 1286844 05 [facility] Back fusion [id number] [facility] Cholecystectomy [id number] [facility] Gastric bypass operation 34281 003 [facility] Hernia repair [id number] [facility] Internal and external hemorrhoidectomy a nd anal fissurectomy 858563685 [facility] Hysterectomy [id number] [facility] Assessment and Plan Assessment and Plan Date Source Extracted from:Title: Clinical Document Author: Tulio Nguyen MD Date: 05/10/16 Progress Note - Daily [facility] Completed: Apr, 14:41 by Tulio Nguyen MD RM: 138 - 1P, SE C1A LOGAN LEIVA 40y (: 1975) F Attending: Jaun Pablo Garza MD Service: Internal Medicine Reason [...] PO Bedtime 05/09/16 enoxaparin 30 mg SUB-Q [id number] 04/30/16 fentaNYL 1 patch TOP Q72H 04/30/16 [...] TID 05/06/16 hydromorphone (Dilaudid) 1 mg I FRUIT AND VEGETABLE PARER Q6H 04/30/16 nitroglycerin (nitroglycerin 0. 4 mg [...] CONTINUE HOME MEDS FOLLOW GI RECOMMENDATIONS 04/12/2016 [facility] Extracted from:Title: Clinical Document Author: Nato Covarrubias MD Date: 09/29/14 IPC Daily Progress Note [facility] Nato Covarrubias MD SUBJECTIVE: pt seen [...] diet. Monitor BG pt is accepted at [facility] await transfer MEDICATIONS Scheduled Meds (7):amitriptyline, citalopram [...] with 0.45% NaCl IV 1,000 mL 09/30/2014 [facility] Extracted from:Title: Clinical Document Author: Rafa Garcia MD Date: 12/16/13 GASTROENTEROLOGY FOLLOW-UP NOTE Ju Garcia M.D. [facility] SUBJECTIVE: No acute events reported overnight. [...] normal (patient reports that she has been [id number] in the past). B12 supplementation per primary team. Elevated LFTs: elevated but stable. Has had detailed work-up within the last 6 months. Will need outpatient follow-up and possibly a Hepatology evaluation in the [facility]. We will follow the patient with you. Please call us with any questions. Ju Garcia M.D. [facility] 2013 [facility] Extracted from:Title: Clinical Document Author: Chitra Collins MD Date: 09/23/13 Progress Note - Daily [facility] SUBJECTIVE: pt with post-surgical discomfort as [...] IV (Dextrose 50% Syringe), LORazepam (Ativan), acetaminophen-hydrocodone (Reedy 5/325 oral tablet), acetaminophen, docusate, hydrOXYzine, hydromorphone [...] me with any questions or concerns. 09/24/2013 [facility] Extracted from:Title: Clinical Document Author: Corey Bolaños MD Date: 09/10/13 Progress Daily [facility] Completed: Aug, 05:35 by Corey Bolaños MD RM: 429 - 1P, SE C4B LOGAN LEIVA 37y (: 1975) F Attending: Corey Bolaños MD Service: Internal Medicine Reason for Admission: INTRACTABLE VOMITING, ELEVATED LIVER ENZYMES Working DRG: Esophagitis, gastroent and misc digest disorders w/o [facility] [place] Code status: None Specified=FULL CODE Current diet: [...] HC 25 mg rectal suppository) 1 appl [place] BID 09/08/13 metoclopramide (Reglan 10 mg or [...] ml/hr 09/07/13 promethazine (Phenergan) 12.5 m g [place] Q4H 09/09/13 promethazine (Phenergan) 25 mg [place] Q4H 09/02/13 sodium chloride (Saline Flush 0 .9%) 5 ml IVP PRN One Time Meds: None Continuous Infusions (1): 09/04/13 Dextrose 5% with 0.9% NaCl IV 1 ,000 mL (D5NS 1,000 mL) 1,000 mL 125 ml/hr 09/10/2013 [facility] Plan of Care No Data Provided for This Section Social History Social History Date Source Social History TypeResponse Alcohol Last use: none. Previous treatment: None. Smoking Status Current every day smoker; Type: Cigarettes; Tobacco use per day: 3; Exposure to Tobacco Smoke None; Cigarette Smoking Last 365 Days Yes; Reg Smoking Cessation Counseling No 09/03/2013 [facility] Social History TypeResponse Alcohol Previous treatment: [...]
--- OUTSIDE RECORDS SUMMARY | 2019-10-17 19:50 | XMS REPORT | Continuity of Care Document ---
Author Author [facility] t Organization [facility] Address [address] [place] [address] Phone Unavailable Care Team Providers Care Hook Tender Name Role Phone NONSTAFF PCP Unavailable Lavell CASTILLO Attphys Unavailable SIMA BAUTISTA Attphys Unavailable BRENNAN SOUSA Attphys Unavailable Aayush CAMPOS Attphys Unavailable Jt Liang Attphys Kojo Márquez Attphys Carri Garza Attphys Irvin Verdin Attphys Yelena Smith Attphys Sergo Stallworth Attphys Morgan Ochoa Attphys Prasad Mcgowan Attphys Corey Bolaños Attphys Deni Roijas Attphys Morgan Hope Attphys Kojo Márquez Admphys Carri Garza Admphys Irvin Verdin Admphys Morgan Ochoa Admphys Corey Bolaños Admphys Payers Payer Name Policy Type Policy Number Effective Date Expiration Date Lester [employer] [id number] 2019 00:00:00 [facility] Problems Condition Name Condition Details Condition Category Status Onset Date Resolution Date Last Treatment Date Treating Clinician Comments Source 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 Disease Active 2016-09-23 00:00:00 Rangel Sabianist Contusion of left wrist Contusion of left wrist Disease Active 2016-09-23 00:00:[address] Left wrist pain Left wrist pain Disease Active 2016-09-23 00:00:00 Rangel Sabianist Left hand pain Left hand pain Disease Active 2016-09-23 00:00:00 Rangel Sabianist ALLERGIC REACTION CARL RGIC REACTION Active 08/05/2016 [facility] Diagnosis Active 2016-08-05 00:00:00 2016-08-05 04:01:00 [facility] FEVER FEVE R Active 07/13/2016 [facility] Active 2016-07-13 00:00:00 2016-07-13 10:22:00 [facility] DIVERTICULITIS DIVE RTICULITIS Active 07/13/2016 [facility] Active 2016-07-13 00:00:00 2016-08-05 16:05:00 [facility] ABD PAIN ABD PAIN Active 04/29/2016 [facility] Active 2016-04-29 00:00:00 2016-04-29 18:31:00 [facility] ABDOMINAL PAIN ABDO MARIE PAIN Active 04/29/2016 [facility] Active 2016-04-29 00:00:00 2016-05-03 10:33:00 [facility] Enteritis Enteritis Disease Active 2016-04-14 00:00:00 [facility] INTRACTABOLE ABDOMINAL PAIN IN TRACTABOLE ABDOMINAL PAIN Active 04/11/2016 [facility] Active 2016-04-11 00:00:00 2016-04-12 13:07:00 [facility] SIDE PAIN SIDE PAIN Active 04/11/2016 [facility] Active 2016-04-11 00:00:00 2016-04-12 01:03:00 [facility] CT SCAN, DR SENT CT S CAN, DR SENT Active 04/05/2016 [facility] Active 2016-04-05 00:00:00 2016-05-25 09:18:00 [facility] DOC SEND DOC SEND Active 03/02/2016 [facility] Active 2016-03-02 00:00:00 2016-04-26 14:30:00 [facility] Shaun ARM INJURY ARM INJURY Active 03/20/2015 [facility] Active 2015-03-20 00:00:00 2015-03-20 21:29:00 [facility] Shortness of breath Shortness of breath Disease Active 2014-11-10 [facility] Nausea & vomiting Disease Active 2014-10-21 00:00:00 [facility] Acute abdominal pain Acute abdominal pain Disease Active 00:00:00 [facility] Elevated LFTs Elevated LFTs Disease Active 2014-09-30 00:00:00 [facility] INTRACTABLE NAUSEA AND VOMITING INTRACTABLE NAUSEA AND VOMITING Active 09/13/2014 [facility] Active 2014-09-13 00:0 0:00 2014-09-22 14:10:00 [facility] FOOT PAIN FOOT PAIN Active 02/09/2014 [facility] Active 2014-02-09 00:00:00 2014-02-09 10:47:00 [facility] VOMITING,NAUSEA VOMI TING,NAUSEA Active 12/10/2013 [facility] Active 2013-12-10 00:00:00 2013-12-11 08:45:00 [facility] NAUSEA AND VOMITING NAUS EA AND VOMITING Active 12/10/2013 [facility] Active 2013-12-10 00:00:00 2013-12-20 22:03:00 [facility] Shaun EVANS SENT DR Batista ENT Active 12/06/2013 [facility] Active 2013-12-06 00:00:00 2013-12-06 23:55:00 [facility] VOMITING VOMI TING Active 09/01/2013 [facility] Active 2013-09-01 00:00:00 2013-09-02 01:08:00 [facility] Shaun INTRACTABLE VOMITING, ELEVATED LIVER ENZ INTRACTABLE VOMITING, ELEVATED LIVER ENZ Active 09/01/2013 [facility] A ctive 2013-09-01 00:00:00 2013-09-05 13:40:00 [facility] VOMITING/ABD PAIN/SWELLING ABD VOMITING/ABD PAIN/SWELLING ABD Active 08/31/2013 [facility] Ac tive 2013-08-31 12:00:00 2013-09-01 00:59:00 [facility] BLOATING/GASTRIC PAIN/NAUSEA/PIPER/VOMITING BLOATING/GASTRIC PAIN/NAUSEA/PIPER/VOMITING Active 08/29/2013 [facility] Active 2013-08-29 00:00:00 2013-10-03 15:33:00 [facility] SOB SOB Active 06/05/2013 [facility] Active 2013-06-05 00:00:00 2013-06-05 13:29:00 [facility] [place] ASTHMATIC BRONCHITIS ASTH MATIC BRONCHITIS Active 06/05/2013 [facility] Active 2013-06-05 00:00:00 2013-06-19 13:07:00 [facility] CHEST AND ARM COMPLAINTS CHES T AND ARM COMPLAINTS Active 02/11/2013 [facility] Active 2013-02-11 20:00:00 2013-02-11 22:43:00 [facility] OVERDOSE OVER DOSE Active 10/19/2012 [facility] Active 2012-10-19 00:00:00 2013-02-11 22:40:00 [facility] SEIZURES SEIZ URES Active 09/27/2012 [facility] Diagnosis Active 2012-09-27 00:00:00 2012-09-28 14:55:00 [facility] Shaun RENAL COLIC, ABDOMINAL PAIN, DEHYDRATION RENAL COLIC, ABDOMINAL PAIN, DEHYDRATION Active 08/06/2012 [facility] Ac tive 2012-08-06 14:01:00 2012-08-06 15:24:00 [facility] SE[facility] SEIZ URE Active 07/17/2012 [facility] Active 2012-07-17 13:45:00 2012-07-18 12:59:00 [facility] URINARY RETENTION URIN WALTER RETENTION Active 07/09/2012 [facility] Active 2012-07-09 00:00:00 2012-07-17 21:43:00 [facility] BACK PAIN BACK PAIN Active 07/07/2012 [facility] Active 2012-07-07 00:00:00 2012-07-08 02:35:00 [facility] 789.00 - ABDMNAL PAIN UN 789. 00 - ABDMNAL PAIN UN Active 06/29/2012 [facility] Diagnosis Active 2012-06-29 00:01:00 2012-09-17 18:44:00 [facility] FALL FALL Active 05/31/2012 [facility] Active 2012-05-31 07:00:00 2012-05-31 08:10:00 [facility] Shaun 719.45 - JOINT PAIN-PELV 719. 45 - JOINT PAIN-PELV Active 03/06/2012 [facility] [place] Diagnosis Active 2012-03-06 00:01:00 2012-03-13 13:09:00 [facility] ALLERGIC REATION CARL RGIC REATION Active 01/24/2012 [facility] Active 2012-01-24 08:00:00 2012-01-24 23:27:00 [facility] GI BLEED GI B LEED Active 12/31/2011 [facility] Active 2011-12-31 00:00:00 2012-01-02 10:36:00 [facility] HEADACHE HEAD ACHE Active 12/31/2011 [facility] Active 2011-12-31 00:00:00 2011-12-31 21:03:00 [facility] RECTAL BLEED, NO BOWEL MOVEMENT X 5DAYS RECTAL BLEED, NO BOWEL MOVEMENT X 5DAYS Active 12/30/2011 [facility] Ac tive 2011-12-30 00:00:00 2011-12-30 23:38:00 [facility] SYNCOPE SYNC OPE Active 10/14/2011 [facility] Active 2011-10-14 08:00:00 2011-10-16 03:04:00 [facility] LOWER BACK PAIN LOWE R BACK PAIN Active 10/08/2011 [facility] Active 2011-10-08 08:00:00 2011-10-09 03:50:00 [facility] SYNCOPE, ANEMIA, HYPERNATREMIA SYNCOPE, ANEMIA, HYPERNATREMIA Active 10/08/2011 [facility] Active 2011-10-08 08:00:00 2011-10-09 13:27:00 [facility] Abdominal pain Abdominal pain Problem Active [facility] Urinary tract infection UTI (urinary tract infection) Problem Active [facility] Vomiting Vomiting Problem Active [facility] Failure of outpatient treatment Problem Active [facility] Sepsis Problem Active [facility] Gastroenteritis Problem Active [facility] Dehydration Problem Active [facility] Hypokalemia Problem Active [facility] Rhabdomyolysis Problem Active [facility] Acute electrocardiography changes Problem Active [facility] Migraine headache Problem Active [facility] Kidney infection Kidn ey infection Resolved Problem 02/14/2013 [facility] Problem Resolved 2013-02-14 21:34:34 [facility] Malabsorption Le bsorption Resolved Problem 02/14/2013 [facility] Problem Resolved 2013-02-14 21:34:34 [facility] Cancer Canc er Resolved Problem 02/14/2013 1cervical [facility] Problem Resolved 2013-02-14 21:34: 34 [facility] bipolar(Confirmed) bipo lar(Confirmed) Resolved Problem 02/11/2014 [facility] 2014-02-11 22:54:35 [facility] Malignant neoplasm, primary (morphologic abnormality) Malignant neoplasm, primary (morphologic abnormality) Resolved Problem 03/05/2016 cervical [facility]olved 2016-03-05 04:12:17 [facility] high cholesterol(Confirmed) hi gh cholesterol(Confirmed) Resolved Problem 02/11/2014 [facility] 2014-02-11 22:54:35 [facility] cerv cancer(Confirmed) hx c erv cancer(Confirmed) Resolved Problem 02/11/2014 MICHAEL Lucas [facility] Problem Resolved 2014-02-11 22:54:35 [facility] hx gastric bypass(Confirmed) h x gastric bypass(Confirmed) Resolved Problem 02/11/[facility] 2014-02-11 22:54:35 [facility] hypoglycemia(Confirmed) hypo glycemia(Confirmed) Resolved Problem 02/11/2014 [facility] 2014-02-11 22:54:35 [facility] Infectious disorder of kidney (disorder) Infectious disorder of kidney (disorder) Resolved Problem 08/08/2016 MICHAEL Lucas [facility] Problem Resolved 2016-08-08 03:04:37 [facility] orial [place] Lumbar Fusion L3 S1(Confirmed) Lumbar Fusion L3 S1(Confirmed) Resolved Problem 02/11/2014 MICHAEL Lucas [facility] Problem Resolved 2014-02-11 22:54:35 Memor ial [facility] lumbar fusion surgery(Confirmed) lumbar fusion surgery(Confirmed) Resolved Problem 02/11/2014 MICHAEL Lucas [facility] Problem Resolved 2014-02-11 22:54:35 [facility] Shaun Malabsorption syndrome (disorder) Malabsorption syndrome (disorder) Resolved Problem 08/08/2016 MICHAEL Lucas [facility] Problem Resolved 2016-08-08 03:04:37 [facility] [place] bipolar bipo lar Resolved Problem 06/12/2013 [facility] Problem Resolved 2013-06-12 22:04:00 [facility] high cholesterol high cholesterol Resolved Problem 06/12/2013 [facility] Problem Resolved 2013-06-12 22:04:00 [facility] hx cerv cancer hx c erv cancer Resolved Problem 06/12/2013 [facility] Problem Resolved 2013-06-12 22:04:00 [facility] hx gastric bypass hx g astric bypass Resolved Problem 06/12/2013 [facility] Problem Resolved 2013-06-12 22:04:00 [facility] hypoglycemia hypo glycemia Resolved Problem 06/12/2013 [facility] Problem Resolved 2013-06-12 22:04:00 [facility] Lumbar Fusion L3 S1 Lumb ar Fusion L3 S1 Resolved Problem 06/12/2013 [facility] Problem Resolved 2013-06-12 22:04: 00 [facility] lumbar fusion surgery lumb ar fusion surgery Resolved Problem 06/12/2013 [facility] Problem Resolved 2013-06-12 22:04: 00 [facility] Polycystic ovaries (disorder) Polycystic ovaries (disorder) Resolved Problem 08/08/2016 [facility] Problem Resolved 2016-08-08 03:04:37 [facility] Carcinoma of cervix (disorder) Carcinoma of cervix (disorder) Resolved Problem 08/08/2016 [facility] Problem Resolved 2016-08-08 03:04:37 [facility] Crohn's disease (disorder) 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) Resolved Problem 08/08/2016 [facility] Problem Resolved 2016-08-08 03:04:37 [facility] History of bypass of stomach (situation) History of bypass of stomach (situation) Resolved Problem 08/08/2016 [facility] Problem Resolved 2016-08-08 03:04:37 [facility] [place] Hypoglycemia (disorder) Hypo glycemia (disorder) Resolved Problem 08/08/2016 [facility] Problem Resolved 2016-08-08 03:04: 37 Roger Dunn Systemic lupus erythematosus (disorder) Systemic lupus erythematosus (disorder) Resolved Problem 08/08/2016 [facility] Problem Resolved 2016-08-08 03:04:37 [facility] Mechanical complication of internal orth opedic device, implant AND/OR graft (disorder) Mechanical compl ication of internal orthopedic device, implant AND/OR graft (disorder) Resolved Problem 08/08/2016 [facility] Problem Resolved 2016-08-08 03:04:37 Roger Dunn Abdominal pain Abdo marie pain Active Problem 02/14/2013 [facility] Problem Active 2013-02-14 21:34:34 Roger Dunn Anxiety Anxi ety Active Problem 02/14/2013 [facility] Problem Active 2013-02-14 21:34:34 Roger Dunn Cancer of cervix Canc er of cervix Active Problem 02/14/2013 [facility] Problem Active 2013-02-14 21:34:34 Roger Dunn Depression Depr ession Active Problem 02/14/2013 [facility] Problem Active 2013-02-14 21:34:34 Roger Dunn Female genital organ symptoms Female genital organ symptoms Active Problem 02/14/2013 2CANCELLED [facility] MICHAEL Dunn [facility] Problem Active 2013-02-14 21:34:34 Roger Dunn Gastric bypass operation Lucas cecy bypass operation Active Problem 02/14/2013 [facility] MICHAEL Dunn [facility] Problem Active 2013-02-14 21:34:34 [facility] Laparoscopic procedure [place] roscopic procedure Active Problem 02/14/2013 [facility] MICHAEL Dunn [facility] Problem Active 2013-02-14 21:34:34 Kiesha ial [facility] Lumbar puncture headache Lumb ar puncture headache Active Problem 10/18/2011 [facility] Problem Active 2011-10-18 08:21:1 3 Roger Dunn Lysis of adhesions Lysi s of adhesions Active Problem 02/14/2013 [facility] Problem Active 2013-02-14 21:34:34 Roger Dunn Migraine Migr chito Active Problem 02/14/2013 [facility] Problem Active 2013-02-14 21:34:34 [facility] Sinusitis Sinu sitis Active Problem 02/14/2013 [facility] Problem Active 2013-02-14 21:34:34 [facility] Ulcer Ulce r Active Problem 02/14/2013 [facility] Problem Active 2013-02-14 21:34:34 [facility] Lumbar puncture headache Lumb ar puncture headache Active Problem 02/14/2013 [facility] Problem Active 2013-02-14 21:34:34 Memor jamal Dunn Anxiety (finding) Anxi ety (finding) Active Problem 08/08/2016 [facility] Problem Active 2016-08-08 03:04:37 [facility] Malignant tumor of cervix (disorder) Malignant tumor of cervix (disorder) Active Problem 08/08/2016 MICHAEL Lucas [facility] Problem Active 2016-08-08 03:04:37 Memor jamal Dunn Depressive disorder (disorder) Depressive disorder (disorder) Active Problem 08/08/2016 [facility] Problem Active 2016-08-08 03:04:37 [facility] Female genital organ symptoms (finding) Female genital organ symptoms (finding) Active Problem 08/08/2016 CANCELLED MICHAEL Tovarbeverly [facility] Problem Active 2016-08-08 03:04:37 Jorje fan Dunn Esophagogastrostomy, antesternal or antethoracic (proc edure) Esophagogastrostomy, antesternal or antethoracic (procedure) Active Problem 08/08/2016 MICHAEL Lucas [facility] Problem Active 2016-08-08 03:04:37 [facility] Laparoscopic-assisted procedure (procedure) Laparoscopic-assisted procedure (procedure) Active Problem 08/08/2016 [facility] Problem Active 2016-08-08 03:04:3 7 [facility] Headache following lumbar puncture (disorder) Headache following lumbar puncture (disorder) Active Problem 08/08/2016 MICHAEL Lucas [facility] Problem Active 2016-08-08 03:04:37 Me mor[facility] [place] Lysis of adhesions (procedure) Lysis of adhesions (procedure) Active Problem 08/08/2016 NERI Lucas [facility] Problem Active 2016-08-08 03:04:37 [facility] [place] Sinusitis (disorder) Sinu sitis (disorder) Active Problem 08/08/2016 NERI Lucas [facility] Problem Active 2016-08-08 03:04:37 [facility] Ulcer (morphologic abnormality) Ulcer (morphologic abnormality) Active Problem 03/05/2016 NERI Lucas [facility] Problem Active 2016-03-05 04:12:17 [facility] [place] Biopsy of liver (procedure) Bi opsy of liver (procedure) Active Problem 08/08/2016 NERI Lucas [facility] Problem Active 2016-08-08 03:04:37 [facility] [place] Endometriosis (disorder) Endo metriosis (disorder) Active Problem 08/08/2016 [facility] Problem Active 2016-08-08 03:04:3 7 [facility] SYNCOPE AND COLLAPSE SYNC OPE AND COLLAPSE Active [facility] Active 2011-10-09 13:27:00 Me [facility] [place] ANEMIA NOS ANEM IA NOS Active [facility] Active 2011-10-09 13:27:00 [facility] [place] RETENTION OF URINE NOS RETE NTION OF URINE NOS Active [facility] Active 2012-07-17 21:43:00 [facility] [place] BRONCHITIS NOS BRON CHITIS NOS Active [facility] Active 2013-06-19 13:07:00 [facility] VOMITING ALONE VOMI TING ALONE Active [facility] Active 2013-09-05 13:40:00 [facility] [place] NAUSEA WITH VOMITING NAUS EA WITH VOMITING Active [facility] Active 2014-09-22 14:10:00 Me morial [facility] UNSPECIFIED ABDOMINAL PAIN UNS PECIFIED ABDOMINAL PAIN Active [facility] Active 2016-05-03 10:33:00 [facility] Urticaria, unspecified Urti caria, unspecified 08/05/2016 08/08/2016 [facility] Problem 2016-08-05 05:00:00 2016 03:04:37 2016-08-08 03:04:37 [facility] Unspecified abdominal pain Uns pecified abdominal pain 07/13/2016 07/16/2016 [facility] Problem 2016-07-13 06:0 0:00 2016-07-16 04:19:15 2016-07-16 04:19:15 [facility] Pain in unspecified joint Pain in unspecified joint 07/13/2016 07/16/2016 [facility] Problem 2016-07-13 06:00:00 2016 04:19:15 2016-07-16 04:19:15 [facility] [place] Discharge Diagnosis: Abdominal pain Discharge Diagnosis: Abdominal pain 04/06/2016 04/09/2016 [facility] Problem 2016-04-06 06:00:00 2016-04-09 03:49:42 2016-04-09 03:49:42 [facility] [place] Discharge Diagnosis: Acute pyelonephritis Discharge Diagnosis: Acute pyelonephritis 03/02/2016 03/05/2016 [facility] Problem 2016-03-02 05:00:00 2016-03-05 04:12:17 2016-03-05 04:12:17 [facility] [place] Discharge Diagnosis: Contusion of left upper arm, init ial encounter Discharge Diagnosis: Contusion of left upper arm, initial encounter 03/20/2015 03/23/2015 [facility] Problem 2015-03-20 06:0 0:00 2015-03-23 05:57:21 2015-03-23 05:57:21 [facility] Discharge Diagnosis: Transaminitis Discharge Diagnosis: Transaminitis 09/14/2014 10/03/2014 [facility] Problem 2014-09-14 05:00:00 2014-10-03 00:38:24 2014-10-03 00:38:24 [facility] Discharge Diagnosis: Abdominal pain in female patient Discharge Diagnosis: Abdominal pain in female patient 09/14/2014 10/03/2014 [facility] Problem 2014-09-14 05:00:00 2014-10-03 00:38:24 2014-09 00:38:24 [facility] [place] Discharge Diagnosis: Contusion of foot, left Discharge Diagnosis: Contusion of foot, left 02/09/2014 02/11/2014 [facility] Problem 2014-02-09 05:00:00 2014-02-11 22:54:35 2014-02-11 22:54:35 [facility] [place] Discharge Diagnosis: Pain in left foot Discharge Diagnosis: Pain in left foot 02/09/2014 02/11/2014 [facility] Problem 2014-02-09 05:00:00 2014-02-11 22:54:35 2014-02-11 22:54:35 [facility] Discharge Diagnosis: Headache Discharge Diagnosis: Headache 12/07/2013 12/09/2013 [facility] Problem 12-07 05:00:00 2013-12-09 21:48:24 2013-12-09 21:48:24 [facility] [place] Discharge Diagnosis: Abdominal pain Discharge Diagnosis: Abdominal pain 09/13/2013 09/15/2013 [facility] Problem 2013-09-13 05:00:00 2013-09-15 23:04:40 2013-09-15 23:04:40 [facility] [place] Discharge Diagnosis: Elevated liver function tests Discharge Diagnosis: Elevated liver function tests 09/02/2013 09/12/2013 [facility] Problem 2013-09-02 05:00:00 2013-09-12 21:10:33 2013-09 21:10:33 [facility] [place] Discharge Diagnosis: abdominal pain/elevated lft's Discharge Diagnosis: abdominal pain/elevated lft's 09/01/2013 09/03/2013 [facility] Problem 2013-09-01 05:00:00 2013-09-03 20:24:25 2013-08 20:24:25 [facility] Allergies, Adverse Reactions, Alerts Allergy Name Allergy Type Status Severity Reaction(s) Onset Date Inacti ve Date Treating Clinician Comments Source iodine Allergy to substance Active Moderate hives 2019-05-19 00:00:00 [facility] clavulanic acid Allergy to substance Active Moderate hives 202 00:00:00 [facility] Amoxicillin Allergy to substance Active Moderate hives 2019-05-19 00: 00:00 [facility] Shellfish Derived Propensity to adverse reactions to drug Active Anaphylaxis 2017-02-15 00:00:00 Pt reports Iodine (topical a nd IV) ok Juan Carlos Woodall Other Propensity to adverse reactions Active Rash 00:00:00 Paper tapePaper Tape Juan Carlos Woodall Amoxicillin-Pot Clavulanate Propensity to adverse reactions to drug Active Hives 2016-08-24 00:00:00 Juan Carlos Woodall Amoxicillin-Pot Clavulanate Propensity to adverse reactions Active 2014-09-30 00:00:00 Severe itching, rash [facility] Morphine Drug Allergy Active Itching 2014-09-30 00:00:00 Pt states her arm get red [facility] Adhesive Tape Propensity to adverse reactions Active 20 26-09-18 00:00:00 [facility] aspirin aspirin Active [facility] Augmentin Augmentin Active Jorje rial [place] Food MSG Food MSG Active Memori al [facility] Imitrex Imitrex Active [facility] iodine iodine Active [facility] ermann Iron (Ferrous Sulfate) Iron (Ferrous Sulfate) Active [facility] Paper Tape Paper Tape Active [facility] shellfish shellfish Active [facility] Latex Latex [facility] Social History Social Habit Start Date Stop Date Quantity Comments Source Sex Assigned At [facility] Alcohol intake 2017-02-17 00:00:00 2017-02-17 00:00:00 Current non-drinker of alcohol (finding) Juan Carlos Woodall Cigarettes smoked current (pack per day) - Reported 00:00:00 2016-04-26 00:00:00 [facility] Cigarette pack-years 2016-04-26 00:00:00 2016-04-26 00:00:00 [facility] Tobacco Comment 2014-10-03 00:00:00 2014-10-03 00:00:00 patient states quit smoking on admission to the hospital [facility] History of tobacco use 2014-09-30 00:00:00 Current smoker [facility] Social History 2013-09-03 00:31:12 2013-09-03 00:31:12 [facility] Smoking Status Start Date Stop Date Source Current every day smoker 2017-02-17 00:00:00 Clara Woodall Former smoker 2016-04-26 00:00:00 2016-04-26 00:00:00 [facility] Medications Ordered Medication Name Filled Medication Name Start Date Stop Da te Current Medication? Ordering Clinician Indication Dosage Frequency Signature (SIG) Comments Components Source Cyclobenzaprine Hcl (Flexeril) 5 Mg TABLET Cyclobenzap rine Hcl (Flexeril) 5 Mg TABLET 2019-07-25 17:52:00 Yes 10 Three Times A Day for Pain [facility] mesalamine (PENTASA) 500 MG CR capsule 2017-02-15 18:15:15 Yes 1000mg Q.[id number] Take 1,000 mg by mouth 3 (three) [...] Woodall DIAZEPAM ORAL 2017-02-15 18:15:15 Yes 10mg Q.[id number] Take 10 mg by mouth 3 (three) [...] 300 mg capsule 2017-02-15 18:15:15 Yes 300mg Q.[id number] Take 300 mg by mouth 3 (three) times a day. Juan Carlos Woodall TiZANidine (ZANAFLEX) 4 MG capsule 2017-02-15 18:15:15 Y es 4mg Q.[id number] Take 4 mg by mouth 3 (three) times a day. Juan Carlos Woodall Phenergan 2016-08-05 10:41:00 No 25 mg, Route: IM, ONCE, Dosing Weight 68.636, kg, Priority: STAT, Start date: 08/05/16 5:41:00 CDT, Stop date: 08/05/16 5:41:00 CDT [facility] 0.3 ML Epinephrine 1 MG/ML Prefilled Syringe 2016-08-05 10:35:00 Yes 0.3 mg, IM, PRN, PRN allergic reaction o r asthma, inject into leg for severe allergic reaction, # 1 kit, 0 Refill(s) [facility] [place] Prednisone 50 MG Oral Tablet 2016-08-05 10:12:00 Yes 50 mg = 1 tab, PO, Daily, X 5 day, # 5 tab, 0 Refill(s) [facility] Famotidine 20 MG Oral Tablet 2016-08-05 10:12:00 Yes 20 mg = 1 tab, PO, BID, # 28 tab, 0 Refill(s) [facility] Hydroxyzine Hydrochloride 25 MG Oral Tablet 2016-08-05 10:11:00 Yes 25 mg = 1 tab, PO, QID, X 14 day, # 56 tab, 0 Refill(s) [facility] Diphenhydramine 2016-08-05 08:06:00 No 50 mg, Route: IM, ONCE, Dosing Weight 68.636, kg, Priority: STAT, Start date: 08/05/16 3:06:00 CDT, Stop date: 08/05/16 3:06:00 CDT [facility] kirsten Famotidine 2016-08-05 08:06:00 No 20 mg, Route: PO, ONCE, Dosing Weight 68.636, kg, Priority: STAT, Start date: 08/05/16 3:06:00 CDT, Stop date: 08/05/16 3:06:00 CDT [facility] methylPREDNISolone SODium SUCCinate 2016-08-05 08:06:00 No 125 mg, Route: IM, ONCE, Dosing Weight 68.636, kg, Priority: STAT, Start date: 08/05/16 3:06:00 CDT, Stop date: 08/05/16 3:06:00 CDT [facility] Phenergan 2016-07-13 17:25:00 No Notes: Do not give IV push. 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 [facility] Fentanyl 2016-07-13 17:16:00 No 50 microgram, Route: IV, ONCE, Dosing Weight 65, kg, Start date: 07/13/16 11:16:00 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, Stop date: 07/13/16 11:16:00 [facility] Acetaminophen 325 MG / Hydrocodone Bitartrate 5 MG Oral Tabl et [Mcgregor 5/325] 2016-07-13 16:37:00 Yes 1 tab, PO, Q4H, PRN for pain, X 5 day, # 24 tab, 0 Refill(s) [facility] Cipro 2016-07-13 16:18:00 No 400 mg, Route: IVPB, ONCE, Dosing Weight 65, kg, Priority: STAT, Start date: 07/13/16 10:18:00 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, Stop date: 07/13/16 10:18:00 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 [facility] Flagyl 2016-07-13 16:18:00 No 500 mg, Route: IVPB, ONCE, Dosing Weight 65, kg, Priority: STAT, Start date: 07/13/16 10:18:00 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, Stop date: 07/13/16 10:18:00 [facility] Acetaminophen 325 MG / Hydrocodone Bitartrate 5 MG Oral Tabl et [Mcgregor 5/325] 2016-07-13 15:51:00 No 1 tab, Route: PO, Drug Form: TAB, Dosing Weight 65, kg, ONCE, STAT, Start date: 07/13/16 9:51:00 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, Stop date: 07/13/16 9:51:00 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 [facility] Fentanyl 2016-07-13 13:59:00 No 50 microgram, Route: IVP, ONCE, Dosing Weight 65, kg, Priority: STAT, Start date: 07/13/16 7:59:00 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, Stop date: 07/13/16 7:59:00 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 [facility] Fentanyl 2016-07-13 12:08:00 No Notes: (Same as: Sublimaze) Preservative free. [facility] Phenergan 2016-07-13 12:07:00 No Notes: Do not give IV push. (Same as: Phenergan) [facility] Zofran 2016-07-13 11:28:00 No 4 mg, Route: IVP, Drug form: INJ, ONCE, Dosing Weight 65, kg, Priority: STAT, Start date: 07/13/16 5:28:00 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, Stop date: 07/13/16 5:28:00 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 Roger Dunn Morphine 2016-07-13 11:28:00 No 4 mg, Route: IVP, ONCE, Dosing Weight 65, kg, Priority: STAT, Start date: 07/13/16 5:28:00 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, Stop date: 07/13/16 5:28:00 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 [facility] Shaun Sodium Chloride 0.154 MEQ/ML Injectable Solution 2016-07-13 11:2 8:00 No 1,000 mL, 1,000 ml/hr, Infus e Over: 1 hr, Route: IV, 1,000, Drug form: INJ, ONCE, Priority: STAT, Dosing Weight 65 kg, Start date: 07/13/16 5:28:00 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, Duration: 1 doses or times, Stop date: 07/13/16 5:28:00 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 [facility] Shaun gabapentin 300 MG Oral Capsule 2016-07-13 10:10:00 Yes 300 mg = 1 cap, PO, TID, # 90 cap, 0 Refill(s) Jorje fan [place] mesalamine 500 MG Extended Release Capsule [Pentasa] 2 10:08:00 Yes 500 mg = 1 cap, PO, QID, # 120 cap, 0 Re fill(s) Roger Dunn Acetaminophen 300 MG / Codeine Phosphate 30 MG Oral Tablet [Tylenol with Codeine #3] 2016-05-10 23:41:00 Yes 1 - 2 tab, PO, Q4H, PRN Pain, X 2 week, # 30 tab, 2 Refill(s) [facility] Enoxaparin 2016-05-10 04:00:00 No Notes: (S bhumi as: Lovenox) [facility] Hydromorphone 2016-05-09 16:00:00 No 0.5 mg, 0.5 mL, Route: IVP, Drug form: INJ, Q5Min, Dosing Weight 68.835, kg, PRN Pain Score 7-10, Start date: 05/09/16 10:00:00 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, Duration: 4 doses or times, Stop date: Limited # of times [facility] Morphine 2016-05-09 16:00:00 No Not es: (Same as:MORPhine Sulfate) [facility] Naloxone 2016-05-09 16:00:00 No Notes: Same as Narcan [facility] Flumazenil 2016-05-09 16:00:00 No Notes: (S bhumi as: Romazicon) [facility] Fentanyl 2016-05-09 16:00:00 No Notes: (Same as: Sublimaze) Preservative free. [facility] Diphenhydramine 2016-05-09 16:00:00 No Notes: (Same as: Benadryl) [facility] Labetalol 2016-05-09 16:00:00 No Notes: (Same as: Normodyne, Trandate) Push over 2 minutes Give bolus over 2-3 minutes. [facility] Acetaminophen 2016-05-09 16:00:00 No Notes: Infuse over 15 minutes Do not exceed 4gm/day of acetaminophen MEDICATION WASTE Product Size: 1000 mg Product Wasted: ___ mg Memoria l [place] Metoprolol 2016-05-09 16:00:00 No Notes: (Same as: Lopressor) Push over 2 minutes [facility] Ketorolac 2016-05-09 16:00:00 No 4 days MEDICATION WASTE Product Size: 30 mg Product Wasted: ___ mg [facility] Ondansetron 2016-05-09 16:00:00 No Notes: (Same as: Zofran) MEDICATION WASTE Product Size: 4 mg Product Wasted: ___ mg [facility] Meperidine 2016-05-09 16:00:00 No Notes: (S bhumi As: Demerol) [facility] Hydralazine 2016-05-09 16:00:00 No Notes: (Same as: Apresoline) Push over 5 minutes [facility] ondansetron (ANES) 2016-05-09 15:34:00 No Route: IV, Drug form: INJ, ONCE, Stop date: 05/09/16 9:34:00 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 Mn matthew Dunn sugammadex (ANES) 2016-05-09 15:34:00 No Route: IV, Drug form: SOLN, ONCE, Stop date: 05/09/16 9:34:00 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 Me matthew Dunn phenylephrine (ANES) 2016-05-09 15:34:00 No Route: IV, Drug form: INJ, ONCE, Stop date: 05/09/16 9:34:00 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 [facility] famotidine ([facility]) 2016-05-09 15:22:00 No Route: IV, Drug form: INJ, ONCE, Stop date: 05/09/16 9:22:00 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 [facility] scopol[facility] ([facility]) 2016-05-09 15:22:00 No Route: Transdermal, Drug form: ERFILM, ONCE, Stop date: 05/09/16 9:22:00 [facility] ([facility]) 2016-05-09 15:12:00 No Route: IV, Drug form: INJ, ONCE, Stop date: 05/09/16 9:12:00 [facility] rocuronium ([facility]) 2016-05-09 15:12:00 No Route: IV, Drug form: INJ, ONCE, Stop date: 05/09/16 9:12:00 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 [place] propofol ([facility]) 2016-05-09 15:12:00 No Route: IV, Drug form: INJ, ONCE, Stop date: 05/09/16 9:12:00 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 [facility] fentaNYL ([facility]) 2016-05-09 15:12:00 No Route: IV, Drug form: INJ, ONCE, Stop date: 05/09/16 9:12:00 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 [facility] lidocaine ([facility]) 2016-05-09 15:12:00 No Route: IV, Drug form: INJ, ONCE, Stop date: 05/09/16 9:12:00 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 [facility] midazolam ([facility]) 2016-05-09 15:07:00 No Route: IV, Drug form: SOLN, ONCE, Stop date: 05/09/16 9:07:00 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 [facility] ceFAZolin ([facility]) ([facility]) 2016-05-09 14:22:00 No Route: IV, Drug form: INJ, Start date: 05/09/16 8:22:00 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, Stop date: 05/09/16 9:22:00 [facility] LR 1000 mL INJ ([facility]) 2016-05-09 14:21:00 No Route: IV, Total Volume: 1,000, Start date: 05/09/16 8:21:00 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, Stop date: 05/09/16 9:21:00 [facility] Shaun D5W 1,000 mL 2016-05-08 16:53:00 No 1,000 mL, Rate: 40 ml/hr, Infuse over: 25 hr, Route: IV, Dosing Weight 68.835 kg, Total Volume: 1,000, Start date: 05/08/16 10:53:00 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, Duration: 30 day, Stop date: 06/07/16 10:52:00 [facility] Relistor 2016-05-07 15:00:00 No Notes: Same as: Relistor Restricted to Palliative Care [facility] Miralax 2016-05-07 15:00:00 No Notes: Dissolve in 8 oz of water or juice. (Same as: Miralax) [facility] Dilaudid 2016-05-06 23:35:00 No 1 mg, 1 mL, Route: IVP, Drug form: INJ, Q6H, Dosing Weight 68.835, kg, PRN Pain Score 7-10, Start date: 05/06/16 17:35:00 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, Duration: 30 day, Stop date: 06/05/16 17:34:00 [facility] Dilaudid 2016-05-06 18:47:00 No 1 mg, 1 mL, Route: IVP, Drug form: INJ, Q4H, Dosing Weight 68.835, kg, PRN Pain Score 7-10, Start date: 05/06/16 12:47:00 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, Duration: 30 day, Stop date: 06/05/16 12:46:00 [facility] Hydromorphone 2016-05-04 20:30:00 No 1 mg, 1 mL, Route: IV, Drug form: INJ, Q2H, Dosing Weight 66.364, kg, PRN Pain Score 4-6, Start date: 05/04/16 14:30:00 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, Duration: 30 day, Stop date: 06/03/16 14:29:00 [facility] Mesalamine (Pentasa) 500 mg capsule 2016-05-04 19:00:00 No Mesalamine (Pentasa) 500 mg capsule, 1,000 mg, 2 cap, Drug form: MISC, Route: PO, TID, 05/04/16 13:00:00 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, Duration: 30 day, Stop date: 06/03/16 9:00:00 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 [facility] Shaun Propranolol 2016-05-03 23:00:00 No Notes: Give with food. (Same as: Inderal) [facility] Citrate of Magnesia 2016-05-01 15:38:00 No Notes: (Same as: Citrate of Magnesia) Concentration: 1.745 gm / 30 mL [facility] zolpidem 2016-05-01 04:29:00 No Notes: (John e As: Ambien) [facility] Mirtazapine 2016-05-01 03:00:00 No Notes: ( Same as:Remeron) [facility] SENOKOT-S 2016-05-01 03:00:00 No Notes: (Same as Senokot-S) Equiv. to Marlene-Colace. [facility] pt own buprenorphine (Belbuca) 2016-05-01 02:11:00 No pt own buprenorphine (Belbuca), 150 microgram, Drug form: MISC, Route: BUC, TID, PRN Pain Score 4-6, 04/30/16 20:11:00 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, Duration: 30 day, Stop date: 05/30/16 20:10:00 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 [facility] Propranolol 2016-04-30 23:00:00 No Notes: Take with food. Do not crush or chew. (Same as: Inderal [place]) [facility] gabapentin 100 MG Oral Capsule 2016-04-30 22:00:00 No Notes: (Same as: Neurontin) [facility] Diazepam 2016-04-30 22:00:00 No Notes: (John e as: Valium) [facility] Atropine 2016-04-30 20:50:00 No 0.5 mg, 5 mL, Route: IVP, Drug form: INJ, ONCE, Dosing Weight 66.364, kg, PRN Bradycardia, Start date: 04/30/16 14:50:00 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 [facility] Nitroglycerin 0.4 MG Sublingual Tablet 2016-04-30 20:50:00 No Notes: (Same as:Nitroquick, Nitrostat) "Do Not Crush" Sublingual tablet [facility] Chlordiazepoxide Hydrochloride 5 MG / Clidinium bromide 2.5 MG Oral Capsule 2016-04-30 17:30:00 No Notes: (Same As: L ibrax) [facility] Citrate of Magnesia 2016-04-30 15:45:00 No Notes: (Same as: Citrate of Magnesia) Concentration: 1.745 gm / 30 mL [facility] Macrobid 2016-04-30 15:00:00 No Notes: Not recommended for patients with CrCl<50 ml/min (Same as:Macrobid) With food. [facility] Multivitamins with Folic Acid 0.8 mg oral tablet 2016-04-30 15:00:00 No 1 tab, Route: PO, Drug Form: TAB, Dosing Weight 66.364, kg, Daily, Start date: 04/30/16 9:00:00 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, Duration: 30 day, Stop date: 05/29/16 9:00:00 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 [facility] Pentasa 2016-04-30 15:00:00 No 500 mg, Route: PO, TID, Dosing Weight 66.364, kg, Start date: 04/30/16 9:00:00 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, Duration: 30 day, Stop date: 05/29/16 17:00:00 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 [facility] Folic Acid 2016-04-30 15:00:00 No Notes: (S bhumi as: Folvite) [facility] Fentanyl 2016-04-30 15:00:00 No 1 patch, Route: TOP, Drug form: ERFILM, Q72H, Dosing Weight 66.364, kg, Start date: 04/30/16 9:00:00 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, Duration: 30 day, Stop date: 05/27/16 9:00:00 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 [facility] Diazepam 2016-04-30 15:00:00 No 10 mg, Route: PO, Drug form: TAB, TID, Dosing Weight 66.364, kg, Start date: 04/30/16 9:00:00 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, Duration: 30 day, Stop date: 05/29/16 17:00:00 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 [facility] Citalopram 2016-04-30 15:00:00 No 40 mg, 4 tab, Route: PO, Drug form: TAB, Daily, Dosing Weight 66.364, kg, Start date: 12/17/16 9:00:00 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, Duration: 30 day, Stop date: 05/29/16 9:00:00 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 Roger Dunn Please bring Pt's Own Buprenorphine to pharmacy for label 2016-04-30 15:00:00 No Please bring P t's Own Buprenorphine to pharmacy for label, Reminder, Drug form: MISC, Route: MISC, Q12H, 04/30/16 9:00:00 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, Duration: 30 day, Stop date: 05/29/16 21:00:00 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 [facility] Her escalona XIFAXAN 2016-04-30 15:00:00 No Notes: Same as: Xifaxan Roger Dunn pantoprazole 2016-04-30 15:00:00 No Notes: Tablet should not be chewed or crushed. (Same as: Protonix) Violetta Dunn Prednisone 1 MG Oral Tablet 2016-04-30 15:00:00 No Notes: (Same as: PredniSONE) Take with food. [facility] Felix nicolekirsten Ondansetron 2016-04-30 14:40:00 No Notes: ( Same as: Zofran) Roger Dunn Temazepam 2016-04-30 14:28:00 No Notes: (Sa me As: Restoril) Roger Dunn 72 HR Scopolamine 0.0139 MG/HR Transdermal Patch 2016-04-30 14:2 8:00 No Notes: Change patch every 72 hours (Same as: Transde rm-Scop) Roger Dunn Dicyclomine 2016-04-30 14:27:00 No Notes: ( Same as: Bentyl) Roger Dunn Buprenorphine 2016-04-30 14:27:00 No 150 microgram, Route: BUC, Drug form: FILM, TID, Dosing Weight 66.364, kg, PRN Pain Score 1-3, Start date: 04/30/16 8:27:00 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, Duration: 30 day, Stop date: 05/30/16 8:26:00 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 Roger Dunn Promethazine 2016-04-30 14:27:00 No Notes: (Same as: Phenergan) Roger Dunn D5NS 1,000 mL 2016-04-30 13:08:00 No 1,000 mL, Rate: 100 ml/hr, Infuse over: 10 hr, Route: IV, Dosing Weight 66.364 kg, Total Volume: 1,000, Start date: 04/30/16 7:08:00 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, Duration: 30 day, Stop date: 05/30/16 7:07:00 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 Roger Dunn Hydromorphone 2016-04-30 13:07:00 No 1.25 mg, 1.25 mL, Route: IV, Drug form: INJ, Q4H, Dosing Weight 66.364, kg, PRN Pain Score 6-10, Start date: 04/30/16 7:07:00 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, Stop date: 05/30/16 7:06:00 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 [facility] Shaun nitrofurantoin 2016-04-30 13:01:00 No 100 mg, PO, BID, # 14 cap, 0 Refill(s) [facility] Shaun Pentasa 2016-04-30 13:01:00 No 500 mg, PO, TID, 0 Refill(s) Roger Dunn SENOKOT-S 2016-04-30 12:46:00 Yes 2 tab, PO, Bedtime, 0 Refill(s) [facility] Shaun Classic 2016-04-30 12:46:00 Yes 1 tab, PO, Daily, 0 Refill(s) [facility] diazepam 10 mg oral tablet 2016-04-30 12:46:00 Yes 10 mg = 1 tab, PO, TID, 0 Refill(s) [facility] [place] rifaximin 550 MG Oral Tablet [XIFAXAN] 2016-04-30 12:46:00 Yes 550 mg = 1 tab, PO, BID, 0 Refill(s) Carmen Dunn ondansetron 8 mg oral tablet 2016-04-30 12:46:00 Yes 8 mg = 1 tab, PO, TID, 0 Refill(s) [facility] mirtazapine 7.5 mg oral tablet 2016-04-30 12:46:00 Yes 7.5 mg = 1 tab, PO, Bedtime, 0 Refill(s) [facility] Alfredo murdockkirsten Sodium Chloride 0.154 MEQ/ML Injectable Solution 2016-04-30 11:5 5:00 No 1,000 mL, Rate: 125 ml/hr, I nfuse over: 8 hr, Route: IV, Dosing Weight 65.455 kg, Total Volume: 1,000, Start date: 04/30/16 5:55:00 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, Duration: 30 day, Stop date: 05/30/16 5:54:00 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 [facility] Saline Flush 0.9% 2016-04-30 11:55:00 No Notes: (Same as: BD Posiflush) Roger Dunn Acetaminophen 2016-04-30 11:55:00 No Notes: Do not exceed 4 gm/day. (Same as: Tylenol) Roger Dunn Ondansetron 2016-04-30 11:55:00 No Notes: (Same as: Zofran) MEDICATION WASTE Product Size: 4 mg Product Wasted: ___ mg Roger Dunn Morphine 2016-04-30 11:55:00 No Not es: (Same as:MORPhine Sulfate) Roger Dunn Morphine 2016-04-30 11:01:00 No 4 mg, Route: IVP, ONCE, Dosing Weight 65.455, kg, Priority: STAT, Start date: 04/30/16 5:01:00 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, Stop date: 04/30/16 5:01:00 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 [facility] Ondansetron 2016-04-30 11:01:00 No 4 mg, Route: IVP, Drug form: INJ, ONCE, Dosing Weight 65.455, kg, Priority: STAT, Start date: 04/30/16 5:01:00 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, Stop date: 04/30/16 5:01:00 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 [facility] Hydromorphone 2016-04-30 06:06:00 No 1 mg, Route: IVP, ONCE, Dosing Weight 65.455, kg, Priority: STAT, Start date: 04/30/16 0:06:00 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, Stop date: 04/30/16 0:06:00 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 [facility] Shaun Sodium Chloride 0.154 MEQ/ML Injectable Solution 2016-04-30 01:4 7:00 No 1,000 mL, 2,000 ml/hr, Infus e Over: 30 minutes, Route: IV, 1,000, Drug form: INJ, ONCE, Priority: STAT, Dosing Weight 65.455 kg, Start date: 04/29/16 19:47:00 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, Duration: 1 doses or times, Stop date: 04/29/16 19:47:00 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 [facility] Ondansetron 2016-04-30 01:47:00 No Notes: (Same as: Zofran) MEDICATION WASTE Product Size: 4 mg Product Wasted: ___ mg [facility] rifaximin 550 mg Tab 2016-04-20 00:00:00 Yes 550mg Q.5D Take 1 tablet (550 mg total) by mouth 2 (two) times daily. [facility] chlordiazePOXIDE (LIBRIUM) 5 MG capsule 2016-04-19 20:42:55 Yes 5mg Q.[id number] Take 5 mg by mouth 3 (three) times daily . [facility] dicyclomine (BENTYL) 10 MG capsule 2016-04-19 20:42:55 Yes 10mg Take 10 mg by mouth 3 (three) times daily as needed. [facility] ondansetron (ZOFRAN-ODT) 4 MG disintegrating tablet 2015-05 19:40:41 Yes 4mg Take 4 mg by mouth every 8 (eight) hours as needed for Nausea. [facility] buprenorphine HCl (BELBUCA) 150 mcg Film 2016-04-14 19:40:[address] 150 mcg inside cheek 2 (two) times daily. [facility] mesalamine (PENTASA) 250 mg CR capsule 2016-04-14 19:40:02 Yes 250mg Q.25D Take 250 mg by mouth 4 (four) times daily. [facility] TiZANidine (ZANAFLEX) 4 MG capsule 2016-04-14 19:40:02 Y es 4mg Q.[id number] Take 4 mg by mouth 3 (three) times daily. [facility] folic acid (FOLVITE) 1 MG tablet 2016-04-14 19:40:02 Yes 1mg QD Take 1 mg by mouth daily. [facility] zolpidem (AMBIEN CR) 12.5 MG CR tablet 2016-04-14 19:39:27 Yes 12.5mg Take 12.5 mg by mouth every night as needed for Insomnia. [facility] fentaNYL (DURAGESIC) 25 mcg/hr patch 2016-04-14 19:39:27 Ye s 1{patch} Place 1 patch onto the skin every third day. [facility] docusate sodium (COLACE) 100 MG capsule 2016-04-14 19:39:27 Yes 100mg Q.5D Take 100 mg by mouth 2 (two) times daily. [facility] Protonix 2016-04-13 13:30:00 No Notes: Tablet should not be chewed or crushed. (Same as: Protonix) Roger Dunn Pentasa 2016-04-12 23:00:00 No 1,000 mg, 4 cap, Route: PO, Drug form: ERCAP, QID, Dosing Weight 64.091, kg, Start date: 04/12/16 17:00:00 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, Duration: 30 day, Stop date: 05/12/16 13:00:00 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 [facility] [place] fentaNYL 25 mcg/hr transdermal film, extended release 2016-04-12 21:25:00 Yes 1 patch, TOP, Q72H, 0 Refill(s) Roger Dunn tizanidine 4 mg oral tablet 2016-04-12 21:25:00 Yes 4 mg, PO, BID, 0 Refill(s) [facility] [place] propranolol 80 mg oral capsule, extended release 2016-04-12 21:25:00 Yes 80 mg = 1 cap, PO, Daily, # 30 cap, 0 Refill(s) [facility] [place] promethazine 50 mg oral tablet 2016-04-12 21:25:00 Yes 50 mg = 1 tab, PO, Q6H, PRN Nausea & Vomiting, # 40 tab, 0 Refill(s) [facility] Shaun citalopram 40 mg oral tablet 2016-04-12 21:25:00 Yes 40 mg = 1 tab, PO, Daily, # 30 tab, 0 Refill(s) Gurpreetoria l Shaun Folic Acid 2016-04-12 21:25:00 Yes 2 mg, PO, Daily, 0 Refill(s) [facility] dicyclomine 10 mg oral capsule 2016-04-12 21:25:00 Yes 20 mg = 2 cap, PO, TID, PRN Spasm, 0 Refill(s) [facility] charlotteal Shaun predniSONE 10 mg oral tablet 2016-04-12 21:25:00 Yes See Special Instructions, PO, Daily, 12 day regimen: 2 weeks - 30 mg (3 tabs) daily 2 weeks - 20 mg (2 tabs) daily 2 weeks- 1.5tabs daily 2 weeks - 10 mg (1 tab) daily 2 weeks - 1/2 tab daily, # 24 tab, 0 Refill(s) Roger Dunn temazepam 30 mg oral capsule 2016-04-12 21:25:00 Yes 30 mg = 1 cap, PO, Bedtime, PRN Sleep, # 14 cap, 0 Refill(s) Roger Dunn gabapentin 100 MG Oral Capsule 2016-04-12 21:25:00 Yes 100 mg = 1 cap, PO, TID, # 90 cap, 1 Refill(s) Jorje rial Shaun pantoprazole 40 mg oral enteric coated tablet 2016-04-12 21:25:0 0 Yes 40 mg = 1 tab, PO, BID, 0 Refill(s) Roger Dunn Vitamin B 12 2016-04-12 21:25:00 Yes 1,000 microgram, IM, q 2 weeks, 0 Refill(s) Roger Dunn 72 HR Scopolamine 0.0139 MG/HR Transdermal Patch 2016-04-12 21:25:00 Yes 1.5 mg = 1 patch, TOP, Q72H, PRN Other-Se e Comments, # 4 ea, 0 Refill(s) Roger Dunn mesalamine 500 MG Extended Release Capsule [Pentasa] 2 21:25:00 Yes 1,000 mg = 2 cap, PO, TID, # 120 cap, 0 Refill(s) Roger Dunn Buprenorphine 0.15 MG Buccal Film [Belbuca] 2016-04-12 21:25:00 Yes 150 microgram = 1 ea, BUC, TID, PRN Pain Score 1-3, 0 Refill(s) Roger Dunn diazepam 10 mg oral tablet 2016-04-12 21:25:00 Yes 10 mg = 1 tab, PO, TID, 0 Refill(s) Roger Dunn zolpidem 12.5 mg oral tablet, extended release 2016-04-12 21:25: 00 Yes 12.5 mg = 1 tab, PO, Bedtime, PRN for sleep, 0 Refill( s) Roger Dunn Chlordiazepoxide Hydrochloride 5 MG / Clidinium bromide 2.5 MG Oral Capsule 2016-04-12 21:25:00 Yes 2 cap, PO, TID-Bef ore Meals, 0 Refill(s) Roger Dunn Dilaudid 2016-04-12 11:12:00 No 0.5 mg, 0.5 mL, Route: IV, Drug form: INJ, Q4H, Dosing Weight 64.091, kg, PRN Pain Score 6-10, Priority: Routine, Start date: 04/12/16 5:12:00 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, Duration: 30 day, Stop date: 05/12/16 5:11:00 [facility] Acetaminophen 2016-04-12 11:12:00 No Notes: Do not exceed 4 gm/day. (Same as: Tylenol) [facility] Saline Flush 0.9% 2016-04-12 11:12:00 No Notes: (Same as: BD Posiflush) [facility] D5W 1/2NS 1,000 mL 2016-04-12 11:12:00 No 1,000 mL, Rate: 125 ml/hr, Infuse over: 8 hr, Route: IV, Dosing Weight 64.091 kg, Total Volume: 1,000, Start date: 04/12/16 5:12:00 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, Duration: 30 day, Stop date: 05/12/16 5:11:00 [facility] D5W 1/2NS 1,000 mL 2016-04-12 11:01:00 No 1,000 mL, Rate: 75 ml/hr, Infuse over: 13.3 hr, Route: IV, Dosing Weight 64.091 kg, Total Volume: 1,000, Start date: 04/12/16 5:01:00 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, Duration: 30 day, Stop date: 05/12/16 5:00:00 [facility] Dilaudid 2016-04-12 11:00:00 No 0.5 mg, Route: IVP, ONCE, Dosing Weight 64.091, kg, Priority: STAT, Start date: 04/12/16 5:00:00 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, Stop date: 04/12/16 5:00:00 [facility] Dilaudid 2016-04-12 06:24:00 No 0.5 mg, 0.5 mL, Route: IVP, Drug form: INJ, ONCE, Dosing Weight 64.091, kg, Priority: STAT, Start date: 04/12/16 0:24:00 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, Stop date: 04/12/16 0:24:00 [facility] Phenergan 2016-04-12 06:24:00 No Notes: Do not give IV push. (Same as: Phenergan) [facility] Saline Flush 0.9% 2016-04-12 00:21:00 No Notes: (Same as: BD Posiflush) [facility] Acetaminophen 325 MG / Hydrocodone Bitartrate 5 MG Oral Tabl et [Mcgregor 5/325] 2016-04-06 09:12:00 Yes 100.4 F, X 5 day, # 16 tab, 0 Refill(s) [facility] Dilaudid 2016-04-06 08:07:00 No 1 mg, Route: IV, ONCE, Dosing Weight 64.091, kg, Start date: 04/06/16 2:07:00 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, Stop date: 04/06/16 2:07:00 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 [facility] Promethazine 2016-04-06 03:58:00 No Notes: Do not give IV push. (Same as: Phenergan) [facility] Dilaudid 2016-04-06 03:58:00 No 1 mg, Route: IV, ONCE, Dosing Weight 64.091, kg, Start date: 04/05/16 21:58:00 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, Stop date: 04/05/16 21:58:00 [facility] Ondansetron 2016-04-06 02:18:00 No Notes: ( Same as: Zofran ODT) [facility] sodium chloride 0.9% 1000 ml INJ 1,000 m L + folic acid 1 mg + Vitamin B1 500 mg + multivitamin 10 m 2016-04-06 00:54:00 No 1,000 mL, Rate: 100 ml/hr, Infuse over: 10.2 hr, Route: IV, Dosing Weight 64.091 kg, Total Volume: 1,015.2, Start date: 04/05/16 18:54:00 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, Duration: 1 doses or times, Stop date: 04/06/16 5:05:00 [facility] kirsten Sodium Chloride 0.154 MEQ/ML Injectable Solution 2016-04-06 00:1 5:00 No 1,000 mL, Rate: 100 ml/hr, I nfuse over: 10 hr, Route: IV, Dosing Weight 64.091 kg, Total Volume: 1,000, thiamine 500mg total, Start date: 04/05/16 18:15:00 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, Duration: 1 doses or times, Stop date: 04/06/16 4:14:00 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 [facility] [place] Sodium Chloride 0.154 MEQ/ML Injectable Solution 2016-04-06 00:1 3:00 No 1,000 mL, Rate: 100 ml/hr, Infuse over: 10 hr, Route: IV, Dosing Weight 64.091 kg, Total Volume: 1,000, Start date: 04/05/16 18:13:00 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, Duration: 1 doses or times, Stop date: 04/06/16 4:12:00 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 [facility] Sodium Chloride 0.154 MEQ/ML Injectable Solution 2016-04-06 00:1 2:00 No 1,000 mL, 2,000 ml/hr, Infus e Over: 30 minutes, Route: IV, 1,000, Drug form: INJ, ONCE, Priority: STAT, Dosing Weight 64.091 kg, 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 date: 04/05/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, Duration: 1 doses or times, Stop date: 04/05/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 [facility] Saline Flush 0.9% 2016-04-06 00:10:00 No Notes: (Same as: BD Posiflush) [facility] Promethazine Hcl (Phenergan Supp*) 25 Mg SUPP Prometha zine Hcl (Phenergan Supp*) 25 Mg SUPP 2016-03-15 10:09:00 2017-07-09 00:00:00 No 25 Every 8 Hours [facility] Ondansetron (Zofran Odt) 4 Mg TAB.RAPDIS Ondansetron ( Zofran Odt) 4 Mg TAB.RAPDIS 2016-03-15 09:46:00 2017-07-09 00:00:00 No 4 Q4-6H Prn [facility] Acetaminophen With Codeine (Tylenol With Codeine #3 Ta blet) 1 Each TABLET Acetaminophen With Codeine (Tylenol With Codeine #3 Tablet) 1 Each TABLET 2016-03-15 09:46:00 2016-08-10 00:00:00 No 300 Every 6 Hours as needed for Pain [facility] Levofloxacin (Levaquin) 500 Mg TABLET Levofloxacin (Levaquin ) 500 Mg TABLET 2016-03-15 09:46:00 2016-08-10 00:00:00 No 500 Daily [facility] Morphine 2016-03-03 03:39:00 No 4 mg, Route: IVP, ONCE, Dosing Weight 61.818, kg, Priority: STAT, Start date: 03/02/16 22:39:00 CDT, Stop date: 03/02/16 22:39:00 CDT [facility] Acetaminophen 300 MG / Codeine Phosphate 30 MG Oral Tablet [Tylenol with Codeine #3] 2016-03-03 03:16:00 Yes 1 tab, PO, Q6H, PRN Pain, X 5 day, # 20 tab, 0 Refill(s) [facility] Cephalexin 500 MG Oral Capsule [Keflex] 2016-03-03 03:16:00 Yes 500 mg = 1 cap, PO, QID, X 7 day, # 28 cap, 0 Refill(s) [facility] Ceftriaxone 2016-03-03 03:08:00 No Notes: (Same As: Rocephin). Use with 100 mL NS and infuse over 30 min MEDICATION WASTE Product Size: 1000 mg Product Wasted: ___ mg [facility] Promethazine 2016-03-03 03:01:00 No 12.5 mg, Route: IVPB, ONCE, Dosing Weight 61.818, kg, Priority: STAT, Start date: 03/02/16 22:01:00 CDT, Stop date: 03/02/16 22:01:00 CDT Carmen Dunn Ondansetron 2016-03-03 01:54:00 No 4 mg, Route: IVP, Drug form: INJ, ONCE, Dosing Weight 61.818, kg, Priority: STAT, Start date: 03/02/16 20:54:00 CDT, Stop date: 03/02/16 20:54:00 CDT Mn matthew Dunn Morphine 2016-03-03 01:54:00 No 4 mg, Route: IVP, ONCE, Dosing Weight 61.818, kg, Priority: STAT, Start date: 03/02/16 20:54:00 CDT, Stop date: 03/02/16 20:54:00 CDT [facility] Saline Flush 0.9% 2016-03-03 00:27:00 No Notes: (Same as: BD Posiflush) [facility] Shaun tramadol hydrochloride 50 MG Oral Tablet 2015-03-21 04:12:00 Yes 50 mg = 1 tab, PO, BID, X 7 day, # 14 tab, 0 Refill(s) Roger Dunn Morphine 2015-03-21 04:11:00 No 4 mg, Route: IM, Drug form: INJ, ONCE, Dosing Weight 64.545, kg, Priority: STAT, Start date: 03/20/15 22:11:00, Stop date: 03/20/15 22:11:00 [facility] zaleplon (SONATA) 10 MG capsule 2015-01-26 12:04:53 Yes 20mg QD Take 20 mg by mouth nightly. [facility] promethazine (PHENERGAN) 25 MG tablet 2014-11-11 01:16:55 Y es 25mg Take 25 mg by mouth every 6 (six) hours as needed for Nausea. [facility] citalopram (CELEXA) 40 MG tablet 2014-10-18 21:10:52 Yes 40mg QD Take 40 mg by mouth daily. [facility] scopolamine (TRANSDERM-SCOP) 1.5 mg patch 2014-10-01 03:22:0 5 Yes prevention of motion sickness 1{patch} Place 1 pa tch onto the skin every third day. [facility] diazepam (VALIUM) 10 MG tablet 2014-09-30 01:54:22 Yes 10mg Q.25D Take 10 mg by mouth 4 (four) times daily. [facility] Ketorolac 2014-09-27 03:02:00 No 4 days MEDICATION WASTE Product Size: 30 mg Product Wasted: ___ mg [facility] Acetaminophen 325 MG / butalbital 50 MG / Caffeine 40 MG Ora l Tablet [Esgic] 2014-09-27 03:00:00 No Notes: (hyxhaylzjgvfu-banigiazlt-zatuuvdb 325-50-40mg) Do not exceed 4 gm/day of acetaminophen. (Same as: Esgic, Fioricet) [facility] Acetaminophen 300 MG / butalbital 50 MG / Caffeine 40 MG Oral Capsule [Fioricet] 2014-09-26 22:40:00 No Notes: (xnpjeqrtdlvmu-feqaovbjnd-zqxobmam 325-50-40mg) Do not exceed 4 gm/day of acetaminophen. (Same as: Esgic, Fioricet) Roger Dunn Promethazine 2014-09-26 16:48:00 No Notes: (Same as: Phenergan) Roger Dunn Promethazine 2014-09-26 16:47:00 No Notes: (Same as: Phenergan) Roger Dunn GI cocktail 2014-09-25 15:24:00 No Notes: G.I. Cocktail = antacid with simethicone 22.5 mL - lidocaine viscous 7.5 mL Roger Dunn Glucose 50 MG/ML / Sodium Chloride 0.0769 MEQ/ML Injectable Solution 2014-09-21 05:34:00 No 1,000 mL, Rate: 125 ml/hr, Infuse over: 8 hr, Route: IV, Dosing Weight 65.455 kg, Total Volume: 1,000, Start date: 09/21/14 0:34:00, Stop date: 10/21/14 0:33:00 Mem orial Shaun d50 syringe 2014-09-21 05:17:00 No 12.5 gm, 25 mL, Route: IVP, Drug Form: INJ, Dosing Weight 65.455, kg, PRN, PRN Blood Glucose Results, Start date: 09/21/14 0:17:00, Duration: 30 day, Stop date: 10/21/14 0:16:00 Roger Dunn Ondansetron 2014-09-19 21:55:00 No Notes: (Same as: Zoclaudette) MEDICATION WASTE Product Size: 4 mg Product Wasted: ___ mg Roger Dunn Phenergan 2014-09-19 21:54:00 No Notes: (Sa me as: Phenergan) Roger Dunn Oxycodone Hydrochloride 5 MG Oral Tablet 2014-09-19 21:54:00 No Notes: (Same as: Roxicodone) Roger barrientos 72 HR Scopolamine 0.0139 MG/HR Transdermal Patch 2014-09-18 18:0 0:00 No Notes: Change patch every 72 hours (Same as: Janee nicole-Scop) [facility] Nicotine 2014-09-17 17:00:00 No 21 mg, 1 patch, Route: TOP, Drug form: ERFILM, Daily, Dosing Weight 65.455, kg, Start date: 09/17/14 12:00:00, Duration: 30 day, Stop date: 10/17/14 9:00:00 [facility] Sodium Chloride 0.154 MEQ/ML Injectable Solution 2014-09-16 17:2 2:00 No 500 mL, Rate: 25 ml/hr, Infu se over: 20 hr, Route: IV, Dosing Weight 65.455 kg, Total Volume: 500, Start date: 09/16/14 12:22:00, Duration: 1 day, Stop date: 09/17/14 12:21:00 [facility] Protonix 2014-09-16 02:00:00 No Notes: Tablet should not be chewed or crushed. (Same as: Protonix) [facility] Amitriptyline 2014-09-15 18:00:00 No Notes: (Same as: Elavil) [facility] Dilaudid 2014-09-15 15:53:00 No 1 mg, 1 mL, Route: IV, Drug form: INJ, Q4H, Dosing Weight 65.455, kg, PRN Pain Score 7-10, Start date: 09/15/14 10:53:00, Duration: 30 day, Stop date: 10/15/14 10:52:00 [facility] Celexa 2014-09-15 14:00:00 No Notes: (Same As: CeleXA) [facility] Hydroxyzine 2014-09-15 02:00:00 No Notes: (Same as: Atarax) Avoid alcohol. [facility] Diazepam 2014-09-14 23:00:00 No Notes: (John e as: Valium) [facility] Dilaudid 2014-09-14 18:03:00 No 2 mg, 2 mL, Route: IV, Drug form: INJ, Q4H, Dosing Weight 65.455, kg, PRN Pain Score 7-10, Start date: 09/14/14 13:03:00, Stop date: 10/14/14 13:02:00 M jeremy [place]man Acetaminophen 325 MG / Hydrocodone Bitartrate 10 MG Or al Tablet [Mcgregor 10/325] 2014-09-14 18:02:00 No Note s: Do not exceed 4gm/day of acetaminophen. (Same as: Mcgregor 325/10) [facility] Shaun zolpidem 2014-09-14 18:01:00 No Notes: (John e As: Ambien) [facility] Diphenhydramine 2014-09-14 16:44:00 No Notes: (Same as: Benadryl) [facility] Diazepam 2014-09-14 14:00:00 No Notes: (John e as: Valium) [facility] Celexa 2014-09-14 14:00:00 No Notes: (Same As: CeleXA) [facility] Saline Flush 0.9% 2014-09-14 07:59:00 No Notes: preservative free. [facility] Sodium Chloride 0.154 MEQ/ML Injectable Solution 2014-09-14 07:5 9:00 No 1,000 mL, Rate: 60 ml/hr, In fuse over: 16.7 hr, Route: IV, Dosing Weight 60 kg, Total Volume: 1,000, Start date: 09/14/14 2:59:00, Stop date: 10/14/14 2:58:00 [facility] Ondansetron 2014-09-14 07:59:00 No Notes: (Same as: Rukhsana) MEDICATION WASTE Product Size: 4 mg Product Wasted: ___ mg [facility] Morphine 2014-09-14 07:59:00 No Not es: (Same as:MORPhine Sulfate) [facility] Shaun Dilaudid 2014-09-14 07:34:00 No 1 mg, 1 mL, Route: IVP, Drug form: INJ, Q6H, Dosing Weight 60, kg, PRN Pain Score 6-10, Priority: STAT, Start date: 09/14/14 2:34:00, Duration: 30 day, Stop date: 10/14/14 2:33:00 [facility] Morphine 2014-09-14 07:34:00 No Not es: (Same as:MORPhine Sulfate) [facility] Shaun Ambien 2014-09-14 07:29:00 No Notes: (Same As: Ambradha) [facility] Phenergan 2014-09-14 07:26:00 No Notes: Do not give IV push. (Same as: Phenergan) [facility] Shaun Zofran 2014-09-14 07:26:00 No Notes: (Same as: Zoclaudette) MEDICATION WASTE Product Size: 4 mg Product Wasted: ___ mg Roger Dunn pantoprazole 2014-09-14 07:25:00 No Notes: For IV push reconstitute with 10 ml 0.9% sodium chloride and push over 2 minutes. (Same as: Protonix) [facility] normal saline 0.9% IV 1,000 mL 2014-09-14 07:25:00 No 1,000 mL, Rate: 75 ml/hr, Infuse over: 13.3 hr, Route: IV, Dosing Weight 60 kg, Total Volume: 1,000, Start date: 09/14/14 2:25:00, Duration: 30 day, Stop date: 10/14/14 2:24:00 Roger Dunn Benadryl 2014-09-14 07:12:00 No 12.5 mg, Route: IVP, ONCE, Dosing Weight 60, kg, Priority: STAT, Start date: 09/14/14 2:12:00, Stop date: 09/14/14 2:12:00 [facility] Shaun Reglan 2014-09-14 06:31:00 No 10 mg, Route: IVP, Drug form: INJ, ONCE, Dosing Weight 60, kg, Priority: STAT, Start date: 09/14/14 1:31:00, Stop date: 09/14/14 1:31:00 [facility] Acetaminophen 325 MG / Hydrocodone Bitartrate 10 MG Or al Tablet [Mcgregor 10/325] 2014-09-14 06:30:00 No 1-2 tab, PO, Q4-6H, PRN Pain, X 5 day, # 15 tab, 0 Refill(s) [facility] Promethazine Hydrochloride 25 MG Rectal Suppository [Phenerg an] 2014-09-14 06:30:00 No 25 mg = 1 supp, DC, Q6H, PRN Nausea & Vomiting, X 3 day, # 9 supp, 0 Refill(s) [facility] Promethazine Hydrochloride 25 MG Oral Tablet [Phenergan] 2014-09-14 06:29:00 No 25 mg = 1 tab, PO, Q 6H, PRN Nausea, X 4 day, # 15 tab, 0 Refill(s) [facility] Acetaminophen 325 MG / Hydrocodone Bitartrate 10 MG Or al Tablet [Mcgregor 10/325] 2014-09-14 05:58:00 No 1 ta b, Route: PO, Drug Form: TAB, Dosing Weight 60, kg, ONCE, STAT, Start date: 09/14/14 0:58:00, Stop date: 09/14/14 0:58:00 [facility] Phenergan 2014-09-14 04:59:00 No Notes: Do not give IV push. (Same as: Phenergan) [facility] Dilaudid 2014-09-14 04:58:00 No 2 mg, 2 mL, Route: IVP, Drug form: INJ, ONCE, Dosing Weight 60, kg, Priority: STAT, Start date: 09/13/14 23:58:00, Stop date: 09/13/14 23:58:00 [facility] Phenergan 2014-09-14 03:17:00 No 12.5 mg, Route: IVPB, ONCE, Dosing Weight 60, kg, Priority: STAT, Start date: 09/13/14 22:17:00, Stop date: 09/13/14 22:17:00 [facility] Sodium Chloride 0.154 MEQ/ML Injectable Solution 2014-09-14 03:1 7:00 No 1,000 mL, Infuse Over: 1 hr, Route: IV, ONCE, Priority: STAT, Dosing Weight 60 kg, Start date: 09/13/14 22:17:00, Duration: 1 doses or times, Stop date: 09/13/14 22:17:00 [facility] Saline Flush 0.9% 2014-09-14 03:17:00 No Notes: preservative free. [facility] Morphine 2014-09-14 03:17:00 No 6 mg, Route: IVP, ONCE, Dosing Weight 60, kg, Priority: STAT, Start date: 09/13/14 22:17:00, Stop date: 09/13/14 22:17:00 [facility] Acetaminophen 325 MG / Hydrocodone Bitartrate 5 MG Oral Tabl et [Mcgregor 5/325] 2014-02-09 16:01:00 Yes 1-2 tab, PO, Q4-6H, Pain, # 12 tab, 0 Refill(s) [facility] Acetaminophen 325 MG / Hydrocodone Bitartrate 5 MG Oral Tabl et [Mcgregor 5/325] 2014-02-09 15:08:00 No 1 tab, Route: PO, Dosing Weight 66.364, kg, ONCE, Start date: 02/09/14 10:08:00, Stop date: 02/09/14 10:08:00 [facility] Miralax 2013 14:00:00 No Notes: Dissolve in 8 oz of water or juice. (Same as: Miralax) [facility] Promethazine 2013-12-16 12:17:00 No Notes: Do not give IV push. (Same as: Phenergan) [facility] Depacon 2013-12-13 13:35:00 No Notes: Dilute in at least 50ml D5W or NS. Infusion rate = 20 mg/min (Same As: Depacon) [facility] Dextrose 50% Syringe 2013-12-12 17:48:00 No 25 gm, 50 mL, Route: IV, Drug Form: INJ, Dosing Weight 63.636, kg, PRN, PRN Blood Glucose Results, Start date: 12/12/13 12:48:00, Duration: 30 day, Stop date: 01/11/14 12:47:00 [facility] gabapentin 2013-12-12 14:30:00 No Notes: (S bhumi as: Neurontin) [facility] Protonix 2013-12-11 21:30:00 No Notes: Tablet should not be chewed or crushed. (Same as: Protonix) [facility] Dilaudid 2013-12-11 16:22:00 No 0.8 mg, 0.8 mL, Route: IV, Drug form: INJ, Q6H, Dosing Weight 63.636, kg, PRN Severe Pain, Start date: 12/11/13 11:22:00, Stop date: 01/10/14 [facility]:21[facility] 2013-12-11 16:21:00 No 4 days [facility] Phenergan 2013-12-11 15:09:00 No Notes: Do not give IV push. (Same as: Phenergan) [facility] Dexamethasone 2013-12-11 15:08:00 No 10 mg, 2.5 mL, Route: IVPB, Drug form: INJ, ONCE, Dosing Weight 63.636, kg, Start date: 12/11/13 10:08:00, Stop date: 12/11/13 10:08:00 Roger barrientos Miralax 2013-12-11 14:00:00 No Notes: Dissolve in 8 oz of water or juice. (Same as: Miralax) Roger Antonio nn Multiple Vitamins with Minerals oral tablet 2013-12-11 14:00:00 No Notes: (Same as:Thera-M, Theragran-M) Give with food. [facility] Shaun Celexa 2013-12-11 14:00:00 No Notes: (Same As: CeleXA) [facility] Shaun Diazepam 2013-12-11 11:00:00 No Notes: (John e as: Valium) Roger Dunn zolpidem 2013-12-11 10:46:00 No 10 mg, Route: PO, Drug form: TAB, Bedtime, Dosing Weight 63.636, kg, PRN as needed for sleep, Start date: 12/11/13 5:46:00, Duration: 30 day, Stop date: 01/10/14 5:45:00 [facility] Shaun Hyoscyamine 2013-12-11 10:46:00 No Notes: (Same as: Levsin) Take 30 min before meal Roger Dunn Chlordiazepoxide Hydrochloride 25 MG Oral Capsule 2013-12-11 10:45:00 No 25 mg, 1 cap, Route: PO, Drug form: CAP, QID, Dosing Weight 63.636, kg, PRN as needed for anxiety, Start date: 12/11/13 5:45:00, Duration: 30 day, Stop date: 01/10/14 5:44:00 Roger Dunn Ambien 2013-12-11 04:00:00 No Notes: (Same As: Ambien) [facility] Protonix 2013-12-10 21:30:00 No Notes: For IV push reconstitute with 10 ml 0.9% sodium chloride and push over 2 minutes. (Same as: Protonix) [facility] Shaun Promethazine 2013-12-10 16:34:00 No Notes: Do not give IV push. (Same as: Phenergan) [facility] Shaun Dilaudid 2013-12-10 16:33:00 No 0.5 mg, 0.5 mL, Route: IV, Drug form: INJ, Q3H, Dosing Weight 64.545, kg, PRN Pain, Start date: 12/10/13 11:33:00, Duration: 30 day, Stop date: 01/09/14 11:32:00 [facility] D5W 1/2NS + KCL 20mEq/L 1000ml (Premix) 1,000 mL 2013-12-10 16:2 9:00 No Notes: PREMIX IV - Do Not Alter [facility] Saline Flush 0.9% 2013-12-10 16:29:00 No Notes: Same as: BD Posiflush Sterile [facility] Docusate 2013-12-10 16:29:00 No Notes: (Same as: Colace) (Do Not Crush) [facility] Acetaminophen 2013-12-10 16:29:00 No Notes: Do not exceed 4 gm/day. (Same as: Tylenol) [facility] Haldol 2013-12-07 05:47:00 No Notes: (Same as: Haldol) [facility] Lorazepam 2013-12-07 05:46:00 No Notes: (Sa me as: Ativan) [facility] Valproic Acid 100 MG/ML Injectable Solution 2013-12-07 04:44:00 No Notes: Dilute in at least 50ml D5W or NS. Infusion rate = 20 mg/min (Same As: Depacon) [facility] Metoclopramide 2013-12-07 04:44:00 No Notes : (Same as: Reglan) [facility] Diphenhydramine 2013-12-07 04:44:00 No Notes: (Same as: Benadryl) [facility] Ketorolac 2013-12-07 04:43:00 No 4 days [facility] Sodium Chloride 0.154 MEQ/ML Injectable Solution 2013-12-07 04:4 3:00 No 1,000 mL, 1,000 ml/hr, Infus e Over: 1 hr, Route: IV, 1,000, Drug form: INJ, ONCE, Priority: STAT, Dosing Weight 64.545 kg, Start date: 12/06/13 23:43:00, Duration: 1 doses or times, Stop date: 12/06/13 23:43:00 [facility] pantoprazole 2013-09-24 14:00:00 No Notes: Tablet should not be chewed or crushed. (Same as: Protonix) Violetta Dunn promethazine 25 mg rectal suppository 2013-09-24 12:15:28 Y es 25 mg = 1 supp, DC, Q4H, Nausea & Vomiting, # 10 supp, 0 Refill(s) Roger Dunn Acetaminophen 325 MG / Hydrocodone Bitartrate 10 MG Or al Tablet [Mcgregor 10/325] 2013-09-24 12:14:56 Yes 1 ta b, PO, Q4H, for pain, # 50 tab, 0 Refill(s) Roger Dunn Zantac 300 2013-09-24 02:00:00 No 300 mg, Route: PO, Drug form: TAB, Bedtime, Dosing Weight 65.455, kg, Start date: 09/23/13 21:00:00, Duration: 30 day, Stop date: 10/22/13 21:00:00 Herbert granado [place] Pepcid 2013-09-24 02:00:00 No Notes: (Same as: Pepcid) Roger Dunn Ativan 2013-09-24 01:42:00 No Notes: (Same as: Ativan) Roger rOdoñezann Phenergan 2013-09-23 22:34:00 No Notes: (Sa me as: Phenergan) Roger Dunn Acetaminophen 325 MG / Hydrocodone Bitartrate 5 MG Oral Tabl et [Mcgregor 5/325] 2013-09-23 11:43:00 No Notes: (Same as: Mcgregor 325/5) Do not exceed 4gm/day of acetaminophen. Roger Ordoñeza nn magnesium citrate 2013-09-21 22:59:00 No Notes: (Same as: Citrate of Magnesia) Roger Ordoñezann pantoprazole 2013-09-21 12:30:00 No Notes: Tablet should not be chewed or crushed. (Same as: Protonix) Violetta Dunn Ativan 2013-09-21 11:18:00 No Notes: (Same as: Ativan) Roger Dunn Dextrose 50% Syringe 2013-09-20 18:48:00 No 25 gm, 50 mL, Route: IV, Drug Form: INJ, Dosing Weight 65.455, kg, PRN, PRN Blood Glucose Results, Start date: 09/20/13 13:48:00, Duration: 30 day, Stop date: 10/20/13 13:47:00, blood sugar <50 [facility] Phenergan 2013-09-20 02:43:00 No Notes: Do not give IV push. (Same as: Phenergan) [facility] [place] Shaun Miralax 2013-09-19 22:05:00 No Notes: Dissolve in 8 oz of water or juice. (Same as: Miralax) [facility] Phenergan 2013-09-19 22:05:00 No Notes: ([facility] as: Phenergan) [facility] Protonix 2013-09-19 14:00:00 No Notes: For IV push reconstitute with 10 ml 0.9% sodium chloride and push over 2 minutes. (Same as: Protonix) [facility] Celexa 2013-09-19 14:00:00 No Notes: (Same As: CeleXA) [facility] Phenrickyan 2013-09-19 10:53:00 No Notes: Do not give IV push. (Same as: Phenergan) [facility] Phenrickyan 2013-09-19 02:15:00 No Notes: Do not give IV push. (Same as: Phenergan) [facility] Chlordiazepoxide Hydrochloride 25 MG Oral Capsule 2013-09-19 02:00:00 No 25 mg, 1 cap, Route: PO, Drug form: CAP, QID, Dosing Weight 65.455, kg, Start date: 09/18/13 21:00:00, Duration: 30 day, Stop date: 10/18/13 17:00:00 [facility] Ambien 2013-09-19 02:00:00 No Notes: (Same As: Ambien) [facility] Hydroxyzine 2013-09-19 01:57:00 No Notes: ( Same as: Vistaril) [facility] Temazepam 2013-09-18 21:46:00 No Notes: ([facility] As: Restoril) [facility] [place] Shaun Dilaudid 2013-09-18 21:45:00 No 1 mg, 1 mL, Route: IV, Drug form: INJ, Q3H, Dosing Weight 69.545, kg, PRN Pain Score 7-10, Start date: 09/18/13 16:45:00, Duration: 30 day, Stop date: 10/18/13 16:44:00 Roger Dunn Acetaminophen 2013-09-18 21:39:00 No Notes: Do not exceed 4 gm/day. (Same as: Tylenol) Roger Dunn Docusate 2013-09-18 21:39:00 No Notes: (Same as: Colace) (Do Not Crush) Roger Dunn Saline Flush 0.9% 2013-09-18 21:39:00 No Notes: (Same as: BD Posiflush) Roger Dunn D5W 1/2NS + KCL 20mEq/L 1000ml (Premix) 1,000 mL 2013-09-18 21:3 9:00 No Notes: PREMIX IV - Do Not Alter Roger Dunn Acetaminophen 325 MG / Hydrocodone Bitartrate 10 MG Or al Tablet [Mcgregor 10/325] 2013-09-13 08:03:00 Yes 1 ta b, PO, Q4H, for pain, # 50 tab, 0 Refill(s) Roger Ordoñezann Acetaminophen 65 MG/ML / Oxycodone Hydrochloride 1 MG/ML Ora l Solution 2013-09-13 08:02:00 Yes 5 ml, PO, Q4H, for pain, # 480 mL, 0 Refill(s) Roger Dunn Acetaminophen 65 MG/ML / Oxycodone Hydrochloride 1 MG/ML Ora l Solution 2013-09-13 07:57:00 Yes 5 ml, PO, Q4H, for pain, # 480 mL, 0 Refill(s) Roger Dunn Ciprofloxacin 500 MG Oral Tablet [Cipro] 2013-09-13 07:57:00 Yes 500 mg = 1 tab, PO, Q12H, # 28 tab, 0 Refill(s) Roger Dunn Acetaminophen 325 MG / Hydrocodone Bitartrate 5 MG Oral Tabl et [Mcgregor 5/325] 2013-09-13 07:44:00 No 1 tab, Route: PO, Dosing Weight 69.545, kg, ONCE, Start date: 09/13/13 2:44:00, Stop date: 09/13/13 2:44:00 Roger Dunn Acetaminophen 33.3 MG/ML / Hydrocodone Bitartrate 0.5 MG/ML Oral Solution 2013-09-13 06:12:00 Yes 15 ml, PO, Q4H, for pain, # 60 mL, 0 Refill(s) Roger Dunn Ondansetron 8 MG Disintegrating Tablet [Zofran] 2013-09-13 06:11 :00 Yes Special Instructions: Dissolve tab under tongue Roger Dunn promethazine 50 mg rectal suppository 2013-09-13 06:11:00 Y es 50 mg = 1 supp, DC, Q6H, Nausea & Vomiting, # 12 supp, 0 Refill(s) Roger Dunn Ciprofloxacin 2013-09-13 05:15:00 No Notes: Do not refrigerate Roger Dunn Sodium Chloride 0.154 MEQ/ML Injectable Solution 2013-09-13 04:3 4:00 No 1,000 mL, 1,000 ml/hr, Infus e Over: 1 hr, Route: IV, 1,000, Drug form: INJ, ONCE, Priority: STAT, Dosing Weight 69.545 kg, Start date: 09/12/13 23:34:00, Duration: 1 doses or times, Stop date: 09/12/13 23:34:00 Roger Dunn d50 syringe 2013-09-13 04:34:00 No Special Instructions: 25 ml = 12.5 gm Roger Dunn Dilaudid 2013-09-13 04:00:00 No 0.5 mg, 0.5 mL, Route: IV, Drug form: INJ, Q3H, Dosing Weight 69.545, kg, Start date: 09/12/13 23:00:00, Duration: 30 day, Stop date: 10/12/13 20:00:00 Roger Dunn Promethazine 2013-09-13 01:51:00 No Notes: Do not give IV push. (Same as: Phenergan) Roger Dunn Ondansetron 2013-09-13 01:51:00 No Notes: ( Same as: Zofran) Roger Dunn Sodium Chloride 0.154 MEQ/ML Injectable Solution 2013-09-13 01:5 0:00 No 1,000 mL, 1,000 ml/hr, Infus e Over: 1 hr, Route: IV, 1,000, Drug form: INJ, ONCE, Priority: STAT, Dosing Weight 69.545 kg, Start date: 09/12/13 20:50:00, Duration: 1 doses or times, Stop date: 09/12/13 20:50:00 Roger Dunn Famotidine 2013-09-13 01:43:00 No Notes: (Same as: Pepcid) Can be dilute in 5-10cc NS IVP: Slow IV push over at least 2 minutes. Roger Dunn Acetaminophen 325 MG / Hydrocodone Bitartrate 10 MG Oral Tab let 2013-09-10 10:39:00 Yes 1 tab, PO, Q4H, Pain Sc ore 4-6, # 10 tab, 0 Refill(s) Roger Dunn promethazine 25 mg rectal suppository 2013-09-10 10:39:00 Y es 25 mg = 1 supp, DC, Q4H, Nausea & Vomiting, # 10 supp, 0 Refill(s) Roger Dunn Ondansetron 0.8 MG/ML Oral Solution [Zofran] 2013-09-09 21:33:00 No Notes: (Same as: Zofran ODT) [facility] [place] Felix barrientos Phenergan 2013-09-09 21:33:00 No Notes: ([facility] as: Phenergan) [facility] [place] Shaun Thiamine 2013-09-09 14:00:00 No Notes: ([facility] As: Vitamin B1) Roger Dunn Metoclopramide 10 MG Oral Tablet [Reglan] 2013-09-08 16:30:00 No Notes: (Same as: Reglan) Take 30 min before meals Roger Dunn promethazine 12.5 mg rectal suppository 2013-09-07 12:55:00 Yes 12.5 mg = 1 supp, DC, Q4H, Nausea & Vomiting, # 12 can, 0 Refill(s) [facility] [place] Shaun Phenergan 2013-09-07 12:51:00 No Notes: ([facility] as: Phenergan) [facility] Protonix 2013-09-06 14:00:00 No Notes: Tablet should not be chewed or crushed. (Same as: Protonix) [facility] Shaun Actigall 2013-09-06 02:00:00 No Notes: ([facility] As: Actigall) [facility] Shaun hydrocortisone acetate 25 MG Rectal Suppository [Anusol HC] 2013-09-05 22:00:00 No Notes: (Same as: Anusol-HC, H emorrhoidal HC) [facility] [place] Shaun Metronidazole 500 MG Oral Tablet 2013-09-05 19:00:00 No Notes: (Same as: Flagyl) Take with food/ avoid alcohol Roger Dunn Sodium Chloride 0.154 MEQ/ML Injectable Solution 2013-09-05 17:0 9:00 No 1,000 mL, Rate: 25 ml/hr, In fuse over: 40 hr, Route: IV, Dosing Weight 67.273 kg, Total Volume: 1,000, Start date: 09/05/13 12:09:00, Duration: 1 day, Stop date: 09/06/13 12:08:00 Roger Dunn D5NS 1,000 mL 2013-09-05 01:05:00 No 1,000 mL, Rate: 125 ml/hr, Infuse over: 8 hr, Route: IV, Dosing Weight 67.273 kg, Total Volume: 1,000, Start date: 09/04/13 20:05:00, Duration: 30 day, Stop date: 10/04/13 20:04:00 Roger Ordoñezann Golytely 2013-09-04 14:11:00 No Notes: (polyethylene glycol electrolyte solution 4 Liter bottle) (Same as: Justice Teixeira) [facility] [place] Shaun Miralax 2013-09-03 17:48:00 No Notes: Dissolve in 8 oz of water or juice. (Same as: Miralax) [facility] Marisela nn Docusate Sodium 100 MG Oral Capsule 2013-09-03 17:48:00 No 100 mg, 1 cap, Route: PO, Drug form: CAP, BID, Dosing Weight 67.273, kg, PRN Constipation, Start date: 09/03/13 12:48:00, Duration: 30 day, Stop date: 10/03/13 12:47:00 [facility] Tilghman Protonix 2013-09-03 14:00:00 No Notes: For IV push reconstitute with 10 ml 0.9% sodium chloride and push over 2 minutes. (Same as: Protonix) [facility] Hydroxyzine 2013-09-03 02:00:00 No Notes: (Same as: Atarax) Avoid alcohol. [facility] Tilghman Ambien 2013-09-03 02:00:00 No Notes: (Same As: Ambien) [facility] Shaun Benadryl 2013-09-02 22:42:00 No Notes: (John e as: Benadryl) [facility] Hyoscyamine 2013-09-02 22:41:00 No Notes: (Same as: Levsin) Take 30 min before meal Roger Dunn Dilaudid 2013-09-02 22:35:00 No 1 mg, 1 mL, Route: IV, Drug form: INJ, Q4H, Dosing Weight 67.273, kg, PRN Pain Score 7-10, Start date: 09/02/13 17:35:00, Duration: 30 day, Stop date: 10/02/13 17:34:00 Roger Dunn Diazepam 2013-09-02 17:00:00 No Notes: (John e as: Valium) Roger Dunn Potassium Chloride 20 MEQ Extended Release Tablet 2013-09-02 14:00:00 No Notes: (Same as: K-D ur 20) "Do Not Crush" With food and full glass of water Roger Dunn Ascorbic Acid / Beta Carotene / cuprous oxide / Lutein / sodium selenate / Vitamin E / Zinc Oxide 2013-09-02 14:00:00 No Notes: (Same as:Thera- M, Theragran-M) Give with food. Carmen Dunn Celexa 2013-09-02 14:00:00 No Notes: (Same As: CeleXA) Roger Dunn promethazine 25 mg oral tablet 2013-09-02 13:45:00 No 25 mg = 1 tab, PO, Q6H, Nausea & Vomiting, # 15 tab, 0 Refill(s) Roger Dunn zolpidem 10 mg oral tablet 2013-09-02 13:45:00 Yes 10 mg = 1 tab, PO, Bedtime, for sleep, 0 Refill(s) Jorje wellingtonl Shaun Miralax 2013-09-02 13:45:00 Yes 17 gm, PO, D aily, 0 Refill(s) Roger Dunn hyoscyamine 0.125 mg sublingual tablet 2013-09-02 13:45:00 Yes 0.125 mg = 1 tab, SL, Q6H, GI Upset, 0 Refill(s) Roger Dunn Phenergan 2013-09-02 13:32:00 No Notes: Do not give IV push. (Same as: Phenergan) Roger Dunn Ondansetron 2013-09-02 13:21:00 No Notes: ( Same as: Zofran) Roger Dunn Morphine 2013-09-02 13:21:00 No Not es: (Same as:MORPhine Sulfate) [facility] Docusate 2013-09-02 13:21:00 No Notes: (Same as: Colace) (Do Not Crush) [facility] Saline Flush 0.9% 2013-09-02 13:21:00 No Notes: (Same as: BD Posiflush) [facility] Sodium Chloride 0.0769 MEQ/ML Injectable Solution 2013-09-02 13:21:00 No 1,000 mL, Rate: 125 ml/hr, Infuse over: 8 hr, Route: IV, Dosing Weight 67.273 kg, Total Volume: 1,000, Start date: 09/02/13 8:21:00, Duration: 30 day, Stop date: 10/02/13 8:20:00 [facility] Acetaminophen 2013-09-02 13:21:00 No Notes: Max acetaminophen = 4000mg/day (4 gm/day). (Same as: Tylenol) [facility] Acetaminophen 325 MG / Hydrocodone Bitartrate 10 MG Oral Tab let 2013-09-02 13:21:00 No Notes: Do not exceed 4gm/day of acetaminophen. (Same as: Mcgregor 325/10) [facility] Acetaminophen 325 MG / Hydrocodone Bitartrate 5 MG Oral Tabl et 2013-09-02 13:21:00 No Notes: (Sa me as: Mcgregor 325/5) Do not exceed 4gm/day of acetaminophen. [facility] Chlordiazepoxide Hydrochloride 25 MG Oral Capsule 2013-09-02 12:30:00 No 25 mg, 1 cap, Route: PO, Drug form: CAP, QID, Dosing Weight 67.273, kg, PRN as needed for anxiety, Start date: 09/02/13 7:30:00, Duration: 30 day, Stop date: 10/02/13 7:29:00 [facility] normal saline 0.9% IV 1,000 mL 2013-09-02 12:29:00 No 1,000 mL, Rate: 125 ml/hr, Infuse over: 8 hr, Route: IV, Dosing Weight 67.273 kg, Total Volume: 1,000, Start date: 09/02/13 7:29:00, Duration: 30 day, Stop date: 10/02/13 7:28:00 [facility] Zofran 2013-09-02 09:03:00 No 4 mg, Route: IVP, Drug form: INJ, ONCE, Dosing Weight 67.273, kg, Priority: STAT, Start date: 09/02/13 4:03:00, Stop date: 09/02/13 4:03:00 [facility] escalona Promethazine Hydrochloride 25 MG Oral Tablet [Phenergan] 2013-09-02 08:42:00 No 25 mg = 1 tab, PO, Q4H, Nausea, # 15 tab, 0 Refill(s) [facility] Dilaudid 2013-09-02 07:49:00 No 1 mg, Route: IV, ONCE, Dosing Weight 67.273, kg, Start date: 09/02/13 2:49:00, Stop date: 09/02/13 2:49:00 [facility] Phenergan 2013-09-02 07:49:00 No 12.5 mg, Route: IVPB, ONCE, Dosing Weight 67.273, kg, Priority: STAT, Start date: 09/02/13 2:49:00, Stop date: 09/02/13 2:49:00 [facility] Hydromorphone 2013-09-02 05:51:00 No 1 mg, Route: IVP, ONCE, Dosing Weight 67.273, kg, Priority: STAT, Start date: 09/02/13 0:51:00, Stop date: 09/02/13 0:51:00 [facility] Phenergan 2013-09-02 04:58:00 No Notes: Do not give IV push. (Same as: Phenergan) [facility] Sodium Chloride 0.154 MEQ/ML Injectable Solution 2013-09-02 04:5 8:00 No 1,000 mL, 1000 ml/hr, Infuse Over: 1 hr, Route: IV, 1,000, Drug form: INJ, ONCE, Priority: STAT, Dosing Weight 67.273 kg, Start date: 09/01/13 23:58:00, Duration: 1 doses or times, Stop date: 09/01/13 23:58:00 [facility] Saline Flush 0.9% 2013-09-02 04:58:00 No Notes: (Same as: BD Posiflush) [facility] pantoprazole 40 mg oral enteric coated tablet 2013-09-01 11:54:0 0 Yes 40 mg = 1 tab, PO, Daily, # 30 tab, 0 Refill(s) Roger Dunn promethazine 6.25 mg/5 mL oral syrup 2013-09-01 11:53:00 Ye s 18.75 mg = 15 mL, PO, QID, as needed for nausea/vomiting, # 500 mL, 0 Refill(s) Roger Ordoñezann Ondansetron 2013-09-01 11:29:00 No Notes: ( Same as: Rukhsana ODT) Roger Shaun Acetaminophen 325 MG / Hydrocodone Bitartrate 10 MG Oral Tab let 2013-09-01 11:29:00 No Notes: Do not exceed 4gm/day of acetaminophen. (Same as: Mcgregor 325/10) Roger Dunn Solu-Medrol 2013-09-01 07:45:00 No Notes: (Same as:Solu-MEDROL, A-Methapred) Roger Shaun Diphenhydramine 2013-09-01 07:45:00 No Notes: (Same as: Benadryl) Roger Tilghman Metoclopramide 2013-09-01 05:43:00 No Notes : (Same as: Reglan) [facility] Tilghman Ondansetron 2013-09-01 05:43:00 No Notes: ( Same as: Rukhsana) Roger Tilghman Hydromorphone 2013-09-01 05:43:00 No 0.5 mg, 0.5 mL, Route: IVP, Drug form: INJ, ONCE, Dosing Weight 63.636, kg, Priority: STAT, Start date: 09/01/13 0:43:00, Stop date: 09/01/13 0:43:00 Roger Tilghman Sodium Chloride 0.154 MEQ/ML Injectable Solution 2013-09-01 05:4 3:00 No 1,000 mL, 1,000 ml/hr, Infus e Over: 1 hr, Route: IV, 1,000, Drug form: INJ, ONCE, Priority: STAT, Dosing Weight 63.636 kg, Start date: 09/01/13 0:43:00, Duration: 1 doses or times, Stop date: 09/01/13 0:43:00 Roger Dunn albuterol 90 mcg/inh inhalation aerosol 2013-06-10 16:44:0 0 Yes Campos Terminella 2 puff, INHALATION, QID, wheezing, # 1 can, 0 Refill(s) [facility] Tilghman DuoNeb inhalation solution 2013-06-10 16:44:00 Yes Campos Terminella 3 ml, INHALATION, QID, Wheezing, # 60 ea, 0 Refill(s) [facility] docusate sodium 100 mg oral capsule 2013-06-10 15:58:00 Yes Kaylee Jarvis Jim 100 mg = 1 cap, PO, Daily, as needed for constipation, # 100 cap, 3 Refill(s) [facility] polyethylene glycol 3350 oral powder for reconstitution 2013-06-10 15:58:00 Yes Kaylee Matheus Jim 17 gm, PO, BID, # 527 gm, 1 Refill(s) [facility] predniSONE 2013-06-10 15:00:00 No Enayet Rahim 40 mg, 2 tab, Route: PO, Drug form: TAB, Daily, Dosing Weight 66.364, kg, Start date: 06/10/13 9:00:00, Duration: 30 day, Stop date: 07/09/13 9:00:00Take with food. [facility] Nebulizer 2013-06-10 12:32:00 Yes Enayet Rahim 1 ea, MISC, ONCALL, # 1 ea, 0 Refill(s) [facility] zolpidem 10 mg oral tablet 2013-06-10 12:32:00 Yes Enaye t Rahim 10 mg = 1 tab, PO, Bedtime, # 7 tab, 0 Refill(s) [facility] predniSONE 20 mg oral tablet 2013-06-10 12:32:00 Yes Jenny yet Rahim 40 mg = 2 tab, PO, Daily, # 10 tab, 0 Refill(s) [facility] levofloxacin 750 mg oral tablet 2013-06-10 12:32:00 Yes Enayet Rahim 750 mg = 1 tab, PO, Daily, # 5 tab, 0 Refill(s) [facility] Promethazine DM oral syrup 2013-06-10 12:32:00 Yes Enaye t Rahim 5 mL, PO, Q6H, for cough, # 30 mL, 0 Refill(s) [facility] Bentyl 2013-06-10 03:00:00 No Sri Matheus Jim 10 mg, 1 cap, Route: PO, Drug form: CAP, QID, Dosing Weight 66.364, kg, Start date: 06/09/13 21:00:00, Duration: 30 day, Stop date: 07/09/13 17:00:00(Same as: Bentyl) [facility] Shaun Levaquin 2013-06-10 03:00:00 No Enayet Rahim 500 mg, 2 tab, Route: PO, Drug form: TAB, Daily, Dosing Weight 66.364, kg, Start date: 06/09/13 21:00:00, Duration: 30 day, Stop date: 07/08/13 21:00:00Do not give w/antacids, dairy pdt & minerals Take 1 hr before or 2 hr after dairy pdt (Same as:Levaquin) [facility] Shaun MiraLax 2013-06-09 15:00:00 No Kaylee Jarvis Jim 17 gm, 1 pkt, Route: PO, Drug form: PWDR, BID, Dosing Weight 66.364, kg, Start date: 06/09/13 9:00:00, Duration: 30 day, Stop date: 07/08/13 17:00:00Dissolve in 8 oz of water or juice. (Same as: Miralax) [facility] zelda Colace 100 mg oral capsule 2013-06-09 03:00:00 No S shen Jarvis Jim 100 mg, 1 cap, Route: PO, Drug form: CAP , Bedtime, Dosing Weight 66.364, kg, Start date: 06/08/13 21:00:00, Duration: 30 day, Stop date: 07/07/13 21:00:00(Same as: Colace) (Do Not Crush) [facility] Shaun Dilaudid 2013-06-08 16:35:00 No Enayet Rahim 1 mg, 1 mL, Route: IV, Drug form: INJ, Q6H, Dosing Weight 66.364, kg, PRN Pain Score 6-10, Start date: 06/08/13 10:35:00, Duration: 30 day, Stop date: 07/08/13 10:34:00 [facility] Shaun hydromorphone 2013-06-08 06:54:00 No Enayet Rahim 2 mg, 2 mL, Route: IVP, Drug form: INJ, ONCE, Dosing Weight 66.364, kg, Priority: STAT, Start date: 06/08/13 0:54:00, Stop date: 06/08/13 0:54:00 Roger Shaun Flonase 0.05 mg/inh nasal spray 2013-06-07 15:00:00 No Morgan Romo 2 inhalation, Route: Each Affected Nostril, Drug Form: SPRY, Dosing Weight 66.364, kg, Daily, Start date: 06/07/13 9:00:00, Duration: 30 day, Stop date: 07/06/13 9:00:00(Same as: Flonase) Kiesha Dunn CeleXA 2013-06-06 15:00:00 No Campos Terminella 40 mg, 2 tab, Route: PO, Drug form: TAB, QAM, Dosing Weight 66.364, kg, Start date: 06/06/13 9:00:00, Duration: 30 day, Stop date: 07/05/13 9:00:00(Same As: CeleXA) [facility] Ambien 2013-06-06 06:35:00 No Enayet Rahim 10 mg, 1 tab, Route: PO, Drug form: TAB, ONCE, Start date: 06/06/13 0:35:00, Stop date: 06/06/13 0:35:00(Same As: Ambien) [facility] Edwin leigh Fioricet oral tablet 2013-06-06 03:06:00 No Enayet Rahi m 1 tab, Route: PO, Drug Form: TAB, Dosing Weight 66.364, kg, Q4H, PRN Headache, Start date: 06/05/13 21:06:00, Duration: 30 day, Stop date: 07/05/13 21:05:00([id number]-uqxwhyib 325-50-40mg) Do not exceed 4 gm/day of acetaminophen. (Same as: Esgic, Fioricet) [facility] zolpidem 2013-06-06 03:00:00 No Enayet Rahim 10 mg, 1 tab, Route: PO, Drug form: TAB, Bedtime, Dosing Weight 66.364, kg, Start date: 06/05/13 21:00:00, Duration: 30 day, Stop date: 07/04/13 21:00:00(Same As: Ambien) [facility] hydrOXYzine 2013-06-06 03:00:00 No Campos Terminella 25 mg, 1 tab, Route: PO, Drug form: TAB, Bedtime, Dosing Weight 66.364, kg, Start date: 06/05/13 21:00:00, Duration: 30 day, Stop date: 07/04/13 21:00:00(Same as: Atarax) Avoid alcohol. [facility] Tamiflu 2013-06-06 03:00:00 No Campos Terminella 75 mg, 1 cap, Route: PO, Drug form: CAP, [id number], Dosing Weight 66.364, kg, Start date: 06/05/13 21:00:00, Duration: 10 doses or times, Stop date: 06/10/13 9:00:00Take with food. Same as: Tamiflu) [facility] chlordiazePOXIDE 25 mg oral capsule 2013-06-06 01:45:00 No Campos Terminella 25 mg, 1 cap, Route: PO, Drug form: CAP, QID, Dosing Weight 66.364, kg, PRN Anxiety, Start date: 06/05/13 19:45:00, Duration: 30 day, Stop date: 07/05/13 19:44:00 [facility] Solu-MEDROL 2013-06-06 00:00:00 No Enayet Rahim 20 mg, 0.5 mL, Route: IVP, Drug form: INJ, [id number], Dosing Weight 67.727, kg, Start date: 06/05/13 18:00:00, Stop date: 07/05/13 6:00:00(Same as:Solu-MEDROL, A-Methapred) [facility] albuterol 2013-06-05 22:04:00 No Enayet Rahim 1.25 mg, 3 mL, Route: NEB, Drug form: SOLN, PRN, PRN Respiratory Protocol, Start date: 06/05/13 16:04:00, Duration: 30 day, Stop date: 07/05/13 16:03:00SEE RT DOCUMENTATION (Same as: Proventil) Roger Dunn levofloxacin 750 mg oral tablet 2013-06-05 20:55:00 No Enayet Rahim 750 mg = 1 tab, PO, Daily, # 10 tab, 0 Refill(s) Roger Dunn predniSONE 5 mg oral tablet 2013-06-05 20:55:00 No 5 mg = 1 tab, PO, TID, # 21 tab, 0 Refill(s) Roger escalona chlordiazePOXIDE 25 mg oral capsule 2013-06-05 20:55:00 Yes Campos Terminella 25 mg = 1 cap, PO, QID, Anxiety, # 60 ca p, 0 Refill(s) Roger Dunn Promethazine DM oral syrup 2013-06-05 20:55:00 No Enaye t Rahim 5 ml, PO, Q6H, for cough, # 120 ml, 0 Refill(s) Roger uDnn acetaminophen 2013-06-05 20:49:00 No Enayet Rahim 650 mg, 2 tab, Route: PO, Drug form: TAB, Q4H, Dosing Weight 67.727, kg, PRN Pain 1-3/Temp > 100.4 F, Start date: 06/05/13 14:49:00, Duration: 30 day, Stop date: 07/05/13 14:48:00Do not exceed 4 gm/day. (Same as: Tylenol) Roger Dunn D5W 1/2NS + KCL 20mEq/L 1000ml (Premix) 1000 mL 2013-06-05 20:49:00 No Enayet Rahim 1,000 mL, Rate: 100 ml/hr, Infuse over: 10 hr, Route: IV, Dosing Weight 67.727 kg, Total Volume: 1,000, Start date: 06/05/13 14:49:00, Duration: 30 day, Stop date: 07/05/13 14:48:00 Roger Dunn docusate 2013-06-05 20:49:00 No Enayet Rahim 100 mg, 1 cap, Route: PO, Drug form: CAP, BID, Dosing Weight 67.727, kg, PRN as needed for constipation, Start date: 06/05/13 14:49:00, Duration: 30 day, Stop date: 07/05/13 14:48:00(Same as: Colace) (Do Not Crush) [facility] Saline Flush 0.9% 2013-06-05 20:49:00 No Enayet Rahim 5 ml, Route: IVP, Drug Form: INJ, Dosing Weight 67.727, kg, PRN, PRN Line Flush, Start date: 06/05/13 14:49:00, Duration: 30 day, Stop date: 07/05/13 14:48:00Same as: BD Posiflush Sterile [facility] Restoril 2013-06-05 18:03:00 No Enayet Rahim 30 mg, 2 cap, Route: PO, Drug form: CAP, Bedtime, Dosing Weight 67.727, kg, PRN Sleep, Start date: 06/05/13 12:03:00, Duration: 30 day, Stop date: 07/05/13 12:02:00(Same As: Restoril) [facility] normal saline 0.9% IV 1,000 mL 2013-06-05 18:02:00 No E nayet Rahim 1,000 mL, Rate: 125 ml/hr, Infuse over: 8 hr, Route: IV, Dosing Weight 67.727 kg, Total Volume: 1,000, Start date: 06/05/13 12:02:00, Duration: 30 day, Stop date: 07/05/13 12:01:00 [facility] Robitussin-AC oral syrup 2013-06-05 18:02:00 No Enayet Rahim 5 ml, Route: PO, Drug Form: LIQ, Dosing Weight 67.727, kg, Q4H, PRN Cough/Congestion, Start date: 06/05/13 12:02:00, Duration: 30 day, Stop date: 07/05/13 12:01:00(Same As: Robitussin AC) Carmen sawant Til[place]man Levaquin 2013-06-05 18:00:00 No Enayet Rahim 500 mg, 100 mL, Route: IVPB, Drug form: INJ, [id number], Dosing Weight 67.727, kg, Start date: 06/05/13 12:00:00, Duration: 30 day, Stop date: 07/04/13 20:00:00(Same as:Levaquin) [facility] Xopenex 2013-06-05 17:57:00 No Enayet Rahim 0.63 mg, Route: NEB, PRN, Dosing Weight 67.727, kg, PRN Respiratory Protocol, Start date: 06/05/13 11:57:00, Duration: 30 day, Stop date: 07/05/13 11:56:00 [facility] prochlorperazine 10 mg oral tablet 2013-02-12 09:47:23 Yes Christion Sergo Rice 10 mg, 1 tab, PO , BID, PRN, 10 tab, Headache, Substitution Allowed, TAB [facility] NS (Bolus) IV 500 mL 2013-02-12 08:55:00 No Christion G regory Rice 500 mL, Rate: 500 ml/hr, Infuse over: 1 hr, Route: IV, Dosing Weight 67.727 kg, Total Volume: 500, Priority: STAT, Start date: 02/12/13 3:55:00, Duration: 1 doses or times, Stop date: 02/12/13 4:54:00, Bolus DoseBolus Dose [facility] Benadryl 2013-02-12 08:43:00 No Christion Sergo Rice 25 mg, Route: IVP, ONCE, Dosing Weight 67.727, kg, Priority: STAT, Start date: 02/12/13 3:43:00, Stop date: 02/12/13 3:43:00 Mem orial [place] Reglan 2013-02-12 08:43:00 No Christion Sergo Rice 10 mg, Route: IVP, Drug form: INJ, ONCE, Dosing Weight 67.727, kg, Priority: STAT, Start date: 02/12/13 3:43:00, Stop date: 02/12/13 3:43:00 [facility] Dilaudid 2013-02-12 05:43:00 No Christion Sergo Rice 1 mg, Route: IV, ONCE, Dosing Weight 67.727, kg, Start date: 02/12/13 0:43:00, Stop date: 02/12/13 0:43:00 [facility] GI cocktail 2013-02-12 05:40:00 No Christion Sergo Ri ce 30 mL, Route: PO, Dosing Weight 67.727, kg, ONCE, STAT, Start date: 02/12/13 0:40:00, Stop date: 02/12/13 0:40:00 [facility] escalona Dilaudid 2013-02-12 04:52:00 No Ama Trotter Rice 1 mg, Route: IV, ONCE, Dosing Weight 67.727, kg, Start date: 02/11/13 23:52:00, Stop date: 02/11/13 23:52:00 [facility] morphine Sulfate 2013-02-12 03:12:00 No Ama villalobos Rice 4 mg, Route: IVP, Drug form: INJ, ONCE, Dosing Weight 67.727, kg, Priority: STAT, Start date: 02/11/13 22:12:00, Stop date: 02/11/13 22:12:00 [facility] ondansetron 2013-02-12 03:12:00 No Ama Trotter Ri ce 4 mg, Route: IVP, Drug form: INJ, ONCE, Dosing Weight 67.727, kg, Priority: STAT, Start date: 02/11/13 22:12:00, Stop date: 02/11/13 22:12:00 [facility] Lactated Ringers Injection IV 1,000 mL 2013-02-12 03:12:00 No Ama Trotter Rice 1,000 mL, Rate: 1,000 ml/hr, Infuse over: 1 hr, Route: IV, Dosing Weight 67.727 kg, Total Volume: 1,000, Bolus infusion, Priority: STAT, Start date: 02/11/13 22:12:00, Duration: 1 doses or times, Stop date: 02/11/13 23:11:00 [facility] Cipro 750 mg oral tablet 2012-09-28 07:08:07 Yes John Vern musa Navas 750 mg, 1 tab, PO, Q12H, 6 tab, Substitution Allowed [facility] Dilaudid 2012-09-28 06:27:00 No Johnaayush Wagoner Navas 1 mg, 0.5 mL, Route: IV, Drug form: INJ, ONCE, Dosing Weight 64.545, kg, Start date: 09/28/12 1:27:00, Stop date: 09/28/12 1:27:00 [facility] Dilaudid 2012-09-28 05:16:00 No John Ciaran Navas 1 mg, 0.5 mL, Route: IV, Drug form: INJ, ONCE, Dosing Weight 64.545, kg, Start date: 09/28/12 0:16:00, Stop date: 09/28/12 0:16:00 [facility] NS (Bolus) IV 1,000 mL 2012-09-28 05:15:00 No John Brynn r Navas 1,000 mL, Rate: 1,000 ml/hr, Infuse over: 1 hr, Route: IV, Dosing Weight 64.545 kg, Total Volume: 1,000, Priority: STAT, Start date: 09/28/12 0:15:00, Duration: 1 doses or times, Stop date: 09/28/12 1:14:00, Bolus DoseBolus Dose [facility] morphine Sulfate 2012-09-28 05:15:00 No John Ciaran Meht a 4 mg, Route: IVP, ONCE, Dosing Weight 64.545, kg, Start date: 09/28/12 0:15:00, Stop date: 09/28/12 0:15:00 [facility] Tylenol 2012-09-28 03:12:00 No John Ciaran Navas 975 mg, 3 tab, Route: PO, Drug form: TAB, ONCE, Dosing Weight 64.545, kg, Priority: STAT, Start date: 09/27/12 22:12:00, Stop date: 09/27/12 22:12:00 [facility] oral tablet 2012-09-28 02:39:16 Yes 1 tab, PO, Daily, Substitution Allowed, Maintenance [facility] magnesium sulfate 2012-09-28 02:35:00 No John Ciaran Aayush ta 2 gm, 50 mL, Route: IVPB, Drug form: INJ, ONCE, Dosing Weight 64.545, kg, Total dose = 2 gm, Start date: 09/27/12 21:35:00, Duration: 1 doses or times, Stop date: 09/27/12 21:35:00 [facility] diazepam 2012-09-28 02:17:00 No John Ciaran Navas 10 mg, 1 tab, Route: PO, Drug form: TAB, ONCE, Dosing Weight 64.545, kg, Priority: STAT, Start date: 09/27/12 21:17:00, Stop date: 09/27/12 21:17:00 [facility] Celexa 2012-09-28 02:13:31 Yes 20 mg , PO, QAM, Substitution Allowed [facility] Atarax 25 mg oral tab 2012-09-28 02:13:24 Yes 25 mg, 1 tab, PO, Bedtime, Substitution Allowed [facility] zelda Ambien 2012-09-28 02:12:48 No Substitution Allowed [facility] ondansetron 2 mg/mL injectable solution 2012-08-11 12:58:0 0 Yes Enayet Rahim 4 mg, 2 mL, IVP, Q6H, PRN, 10 mL, Nausea & Vomiting, Substitution Allowed, INJ [facility] acetaminophen-hydrocodone 325 mg-5 mg oral tablet 12:57:38 Yes Enayet Rahim 2 tab, PO, Q4H, PRN, 15 tab, Pain Score 4-6, Substitution Allowed, Maintenance, TAB [facility] nn docusate sodium 100 mg oral capsule 2012-08-10 14:00:00 No Tulio E Wendy 100 mg, 1 cap, R oute: PO, Drug form: CAP, BID, Dosing Weight 66.818, kg, Start date: 08/10/12 9:00:00, Duration: 30 day, Stop date: 09/08/12 17:00:00 [facility] Flomax 2012-08-10 13:30:00 No Vijay Ferguson Hinh 0.4 mg, 1 cap, Route: PO, Drug form: CAP, After Breakfast, Dosing Weight 66.818, kg, Start date: 08/10/12 8:30:00, Duration: 30 day, Stop date: 09/08/12 8:30:00 [facility] Lovenox 2012-08-10 11:00:00 No Tulio E Wendy 40 mg, 0.4 mL, Route: SUB-Q, Drug form: INJ, [id number], Dosing Weight 66.818, kg, Start date: 08/10/12 6:00:00, Duration: 30 day, Stop date: 09/08/12 6:00:00 [facility] METRONIDazole (SCIP) 2012-08-10 00:00:00 No Tulio Vazquez Wendy 500 mg, 100 mL, Route: IVPB, Drug form: INJ, [id number], Dosing Weight 66.818, kg, Start date: 08/09/12 19:00:00, Duration: 3 doses or times, Stop date: 08/10/12 11:00:00 [facility] 2012-08-09 23:15:00 No Darnell T Chandler 1,000 mg, Route: IV, Drug form: INJ, ONCE, Dosing Weight 66.818, kg, PRN Pain, for > or = 50 kg, Start date: 08/09/12 18:15:00 [facility] Mcgregor 10/325 oral tablet 2012-08-09 23:15:00 No Darnell T Chandler 1 tab, Route: PO, Drug Form: TAB, Dosing Weight 66.818, kg, Q6H, PRN Pain, Start date: 08/09/12 18:15:00, Duration: 30 day, Stop date: 09/08/12 18:14:00 [facility] hydromorphone 2012-08-09 23:15:00 No Darnell T Chandler 0.5 mg, Route: IVP, Q5Min, Dosing Weight 66.818, kg, PRN Pain Score 4-6, Start date: 08/09/12 18:15:00, Duration: 5 doses or times, Stop date: Limited # of times [facility] fentanyl 2012-08-09 23:15:00 No Darnell T Chandler 25 microgram, Route: IVP, Q5Min, Dosing Weight 66.818, kg, PRN Pain Score 4-6, Start date: 08/09/12 18:15:00, Duration: 4 doses or times, Stop date: Limited # of times [facility] flumazenil 2012-08-09 23:15:00 No Darnell T Chandler 0.2 mg, Route: IVP, PRN, Dosing Weight 66.818, kg, PRN Benzodiazepine Reversal, Initial dose, Start date: 08/09/12 18:15:00, Duration: 30 day, Stop date: 09/08/12 18:14:00 [facility] naloxone 2012-08-09 23:15:00 No Darnell T Chandler 0.04 mg, Route: IVP, Q2MIN, Dosing Weight 66.818, kg, PRN Narcotic Reversal, Start date: 08/09/12 18:15:00, Duration: 8 doses or times, Stop date: Limited # of times [facility] ondansetron 2012-08-09 23:15:00 No Darnell T Chandler 4 mg, Route: IVP, ONCE, Dosing Weight 66.818, kg, PRN Nausea & Vomiting, Start date: 08/09/12 18:15:00 [facility] ciprofloxacin (SCIP) 2012-08-09 23:00:00 No Tulio E Wendy 400 mg, 200 mL, Route: IVPB, Drug form: INJ, [id number], Dosing Weight 66.818, kg, Start date: 08/09/12 18:00:00, Duration: 2 doses or times, Stop date: 08/10/12 6:00:00 [facility] Lactated Ringers Injection IV 1,000 mL 2012-08-09 22:24:00 No Tulio E Wendy 1,000 mL, Rate: 125 ml/hr, Infuse over: 8 hr, Route: IV, kg, Total Volume: 1,000, Start date: 08/09/12 17:24:00, Duration: 30 day, Stop date: 09/08/12 17:23:00 [facility] acetaminophen-hydrocodone 325 mg-5 mg oral tablet 22:24:00 No Tulio E Wendy 2 tab, Route: PO, Drug Form: TAB, Dosing Weight 66.818, kg, Q4H, PRN Pain Score 4-6, Start date: 08/09/12 17:24:00, Duration: 30 day, Stop date: 09/08/12 17:23:00 [facility] ondansetron 2012-08-09 22:24:00 No Tulio E Wendy 4 mg, 2 mL, Route: IVP, Drug form: INJ, Q6H, Dosing Weight 66.818, kg, PRN Nausea & Vomiting, Start date: 08/09/12 17:24:00, Duration: 30 day, Stop date: 09/08/12 17:23:00 [facility] diphenhydrAMINE 2012-08-09 22:24:00 No Tulio Shanksan da 25 mg, 1 tab, Route: PO, Drug form: TAB, Bedtime, Dosing Weight 66.818, kg, PRN Insomnia, Start date: 08/09/12 17:24:00, Duration: 30 day, Stop date: 09/08/12 17:23:00 [facility] Lactated Ringers IV 1,000 mL 2012-08-09 20:19:00 No Kobe Ortiz Frias 1,000 mL, Rate: 25 ml/hr, Infuse over: 40 hr, Route: IV, kg, Total Volume: 1,000, Start date: 08/09/12 15:19:00, Duration: 30 day, Stop date: 09/08/12 15:18:00 [facility] Rocephin + Sodium Chloride 0.9% IV 100 mL 2012-08-09 17:00 :00 No Tulio Nguyen 2 gm, Route: IVP B, ONCALL, Start date: 08/09/12 12:00:00, Duration: 2 day, Stop date: 08/11/12 11:59:00 [facility] 2012-08-08 20:57:00 No Tulio George Wendy 133 ml, Route: DC, Drug Form: SUMAN, Dosing Weight 66.818, kg, ONCE, Start date: 08/08/12 15:57:00, Stop date: 08/08/12 15:57:00 [facility] 2012-08-08 12:05:00 No Enayet Rahim 133 ml, Route: DC, Drug Form: SUMAN, Dosing Weight 66.818, kg, ONCE, Start date: 08/08/12 7:05:00, Stop date: 08/08/12 7:05:00 [facility] Ambien 2012-08-08 12:04:00 No Enayet Rahim 10 mg, 1 tab, Route: PO, Drug form: TAB, Bedtime, Dosing Weight 66.818, kg, PRN as needed for sleep, Start date: 08/08/12 7:04:00, Duration: 30 day, Stop date: 09/07/12 7:03:00 [facility] temazepam 2012-08-08 02:00:00 No Enayet Rahim 15 mg, 1 cap, Route: PO, Drug form: CAP, Bedtime, Dosing Weight 66.818, kg, Start date: 08/07/12 21:00:00, Duration: 30 day, Stop date: 09/05/12 21:00:00 [facility] Protonix 2012-08-07 21:30:00 No Enayet Rahim 40 mg, 1 tab, Route: PO, Drug form: ECTAB, Before Dinner, Dosing Weight 66.364, kg, Start date: 08/07/12 16:30:00, Duration: 30 day, Stop date: 09/05/12 16:30:00 [facility] Pristiq 50mg po daily*Pts own med* 2012-08-07 14:00:00 N o Enayet Rahim Pristiq 50mg po daily*Pts own med*, Kira tiq 50mg po daily*Pts own med*, Drug form: MISC, Route: PO, Daily, 08/07/12 9:00:00, Duration: 30 day, Stop date: 09/05/12 9:00:00 [facility] Pristiq 50 mg oral tablet, extended release 2012-08-07 14: 00:00 No Enayet Rahim 1 tab, Route: PO , Drug form: ERTAB, Daily, Dosing Weight 66.364, kg, Start date: 08/07/12 9:00:00, Duration: 30 day, Stop date: 09/05/12 9:00:00 [facility] diazepam 2012-08-07 14:00:00 No Enayet Rahim 10 mg, 1 tab, Route: PO, Drug form: TAB, QID, Dosing Weight 66.818, kg, Start date: 08/07/12 9:00:00, Duration: 30 day, Stop date: 09/05/12 21:00:00 [facility] Milk of Magnesia 2012-08-07 12:13:00 No Enayet Rahim 60 ml, Route: PO, Drug Form: SUSP, Dosing Weight 66.818, kg, ONCE, PRN as needed for constipation, Start date: 08/07/12 7:13:00 [facility] Fleet Enema 2012-08-07 12:12:00 No Enayet Rahim 133 ml, Route: DC, Drug Form: SUMAN, Dosing Weight 66.818, kg, ONCE, Start date: 08/07/12 7:12:00, Stop date: 08/07/12 7:12:00 [facility] iqra Bhattiryl 2012-08-07 05:19:00 No Enayet Rahim 25 mg, 0.5 mL, Route: IV, Drug form: INJ, Q4H, Dosing Weight 66.818, kg, PRN as needed for itching, Start date: 08/07/12 0:19:00, Duration: 30 day, Stop date: 09/06/12 0:18:00 [facility] hydromorphone 2012-08-06 22:42:00 No Enayet Rahim 1.5 mg, 1.5 mL, Route: IV, Drug form: SOLN, Q3H, Dosing Weight 66.818, kg, PRN Pain Score 6-10, Start date: 08/06/12 17:42:00, Duration: 30 day, Stop date: 09/05/12 17:41:00 [facility] Protonix 2012-08-06 21:30:00 No Enayet Rahim 40 mg, Route: IVP, Drug form: INJ, Before Dinner, Dosing Weight 66.364, kg, Start date: 08/06/12 16:30:00, Duration: 30 day, Stop date: 09/04/12 16:30:00 [facility] Pristiq 50 mg oral tablet, extended release 2012-08-06 21: 01:47 Yes Enayet Rahim 50 mg, 1 tab, PO, Daily, 30 tab, Substit ution Allowed, ERTAB [facility] Levaquin 2012-08-06 20:00:00 No Enayet Rahim 500 mg, 100 mL, Route: IVPB, Drug form: INJ, [id number], Dosing Weight 66.364, kg, Start date: 08/06/12 15:00:00, Duration: 30 day, Stop date: 09/04/12 15:00:00 [facility] enoxaparin 2012-08-06 20:00:00 No Enayet Rahim 40 mg, 0.4 mL, Route: SUB-Q, Drug form: INJ, [id number], Dosing Weight 66.364, kg, Start date: 08/06/12 15:00:00, Duration: 30 day, Stop date: 09/04/12 15:00:00 [facility] Restoril 2012-08-06 19:15:00 No Enayet Rahim 30 mg, 2 cap, Route: PO, Drug form: CAP, Bedtime, Dosing Weight 66.364, kg, PRN Sleep, Start date: 08/06/12 14:15:00, Duration: 30 day, Stop date: 09/05/12 14:14:00 [facility] Phenergan + Sodium Chloride 0.9% IV 50 mL 2012-08-06 19:14 :00 No Enayet Rahim 12.5 mg, 0.5 mL, Route: IVPB, Q4H, Dosing Weight 66.364, kg, PRN Nausea & Vomiting, Start date: 08/06/12 14:14:00, Duration: 30 day, Stop date: 09/05/12 14:13:00 [facility] Dilaudid 2012-08-06 19:13:00 No Enayet Rahim 1 mg, 1 mL, Route: IV, Drug form: SOLN, Q3H, Dosing Weight 66.364, kg, PRN Pain, Start date: 08/06/12 14:13:00, Duration: 30 day, Stop date: 09/05/12 14:12:00 [facility] D5LR 1,000 mL 2012-08-06 19:08:00 No Enayet Rahim 1,000 mL, Rate: 100 ml/hr, Infuse over: 10 hr, Route: IV, kg, Total Volume: 1,000, Start date: 08/06/12 14:08:00, Duration: 30 day, Stop date: 09/05/12 14:07:00 [facility] Bentyl 2012-07-19 20:23:00 No Enayet Rahim 10 mg, 1 cap, Route: PO, Drug form: CAP, Q6H, Dosing Weight 66.364, kg, PRN For Pain, Start date: 07/19/12 14:23:00, Duration: 30 day, Stop date: 08/18/12 14:22:00 [facility] Fioricet 2012-07-19 13:23:00 No Enayet Rahim 1 tab, Route: PO, Drug Form: TAB, Dosing Weight 66.364, kg, Q4H, PRN Headache, Start date: 07/19/12 7:23:00, Duration: 30 day, Stop date: 08/18/12 7:22:00 [facility] zolpidem 2012-07-19 03:00:00 No Enayet Rahim 20 mg, 2 tab, Route: PO, Drug form: TAB, Bedtime, Dosing Weight 66.364, kg, Start date: 07/18/12 21:00:00, Duration: 30 day, Stop date: 08/16/12 21:00:00 [facility] citalopram 2012-07-19 03:00:00 No Enayet Rahim 10 mg, 1 tab, Route: PO, Drug form: TAB, Bedtime, Dosing Weight 66.364, kg, Start date: 07/18/12 21:00:00, Duration: 30 day, Stop date: 08/16/12 21:00:00 [facility] influenza virus vaccine, inactivated 2012-07-18 19:30:00 No SYSTEM SYSTEM 0.5 ml, Route: IM, Drug Form : INJ, Start date: 07/18/12 13:30:00, Stop date: 07/18/12 13:30:00 [facility] Phenergan + Sodium Chloride 0.9% IV 50 mL 2012-07-18 15:49 :00 No Enayet Rahim 12.5 mg, 0.5 mL, Route: IVPB, ONCE, Dosing Weight 66.364, kg, Start date: 07/18/12 9:49:00, Stop date: 07/18/12 9:49:00 [facility] Valium 2012-07-18 15:00:00 No Enayet Rahim 10 mg, 2 tab, Route: PO, Drug form: TAB, QID, Start date: 07/18/12 9:00:00, Duration: 30 day, Stop date: 08/16/12 21:00:00 [facility] diazepam 2012-07-18 15:00:00 No Enayet Rahim 10 mg, Route: PO, Drug form: TAB, QID, Dosing Weight 66.364, kg, Start date: 07/18/12 9:00:00, Duration: 30 day, Stop date: 08/16/12 21:00:00 [facility] influenza virus vaccine, inactivated 2012-07-18 15:00:00 No SYSTEM SYSTEM 0.5 ml, Route: IM, Drug Form : INJ, Daily, Start date: 07/18/12 9:00:00, Duration: 1 doses or times, Stop date: 07/18/12 9:00:00 [facility] Flomax 2012-07-18 14:30:00 No Enayet Rahim 0.4 mg, 1 cap, Route: PO, Drug form: CAP, After Breakfast, Dosing Weight 66.364, kg, Start date: 07/18/12 8:30:00, Duration: 30 day, Stop date: 08/16/12 8:30:00 [facility] D5W 1/2NS + KCL 20mEq/L 1000ml (Premix) 1,000 mL 12:37:00 No Enayet Rahim 1,000 mL, Rate: 150 ml/hr, Infuse over: 6.7 hr, Route: IV, kg, Total Volume: 1,000, Start date: 07/18/12 6:37:00, Duration: 30 day, Stop date: 08/17/12 6:36:00 [facility] diazepam 2012-07-18 12:10:00 No Enayet Rahim 10 mg, 2 tab, Route: PO, Drug form: TAB, ONCE, Dosing Weight 66.364, kg, PRN Seizure, Start date: 07/18/12 6:10:00 [facility] diazepam 2012-07-18 11:26:00 No Enayet Rahim 10 mg, 2 tab, Route: PO, Drug form: TAB, QID, Dosing Weight 66.364, kg, PRN, Start date: 07/18/12 5:26:00, Duration: 30 day, Stop date: 08/17/12 5:25:00, QID [facility] Dilaudid 2012-07-18 06:29:00 No Enayet Rahim 1.5 mg, 1.5 mL, Route: IV, Drug form: SOLN, Q4H, Dosing Weight 66.364, kg, PRN Pain, Start date: 07/18/12 0:29:00, Stop date: 08/17/12 0:28:00 [facility] morphine Sulfate 2012-07-18 02:23:00 No Enayet Rahim 2 mg, 1 mL, Route: IVP, Drug form: INJ, Q4H, Dosing Weight 66.364, kg, PRN Pain Score 4-6, Start date: 07/17/12 20:23:00, Duration: 30 day, Stop date: 08/16/12 20:22:00 [facility] Saline Flush 0.9% 2012-07-18 02:23:00 No Enayet Rahim 5 ml, Route: IVP, Drug Form: INJ, Dosing Weight 66.364, kg, PRN, PRN Line Flush, Start date: 07/17/12 20:23:00, Duration: 30 day, Stop date: 08/16/12 21:22:00 [facility] citalopram 10 mg oral tablet 2012-07-18 01:38:45 Yes Jenny yet Rahim 10 mg, 1 tab, PO, Bedtime, 30 tab, Substitution Allowed, TAB [facility] Flomax 0.4 mg oral capsule 2012-07-18 01:38:09 Yes Enaye t Rahim 0.4 mg, 1 cap, PO, After Breakfast, 30 cap, Substitution Allowed, CAP [facility] Bactrim DS oral tablet 2012-07-18 01:37:42 Yes 1 tab, PO, BID, 6 tab, Substitution Allowed, Maintenance Violetta Dunn Benadryl 2012-07-18 00:05:00 No Antonio Riojas 12.5 mg, Route: IVP, ONCE, Dosing Weight 66.364, kg, Priority: STAT, Start date: 07/17/12 18:05:00, Stop date: 07/17/12 18:05:00 [facility] floyd Milian 2012-07-17 23:47:00 No Asem Souman 4 mg, Route: IVP, Drug form: INJ, ONCE, Dosing Weight 66.364, kg, PRN Nausea, Priority: STAT, Start date: 07/17/12 17:47:00 [facility] morphine Sulfate 2012-07-17 23:47:00 No Asem Souman 4 mg, Route: IVP, ONCE, Dosing Weight 66.364, kg, Start date: 07/17/12 17:47:00, Stop date: 07/17/12 17:47:00 [facility] Saline Flush 0.9% 2012-07-17 21:00:00 No Asem Souman 5 ml, Route: IVP, Drug Form: INJ, Dosing Weight 66.364, kg, PRN, PRN Line Flush, Start date: 07/17/12 15:00:00, Duration: 30 day, Stop date: 08/16/12 15:59:00 [facility] LORAzepam 2012-07-17 21:00:00 No Asem Souman 1 mg, 0.5 mL, Route: IVP, Drug form: INJ, ONCE, Dosing Weight 66.364, kg, Priority: STAT, Start date: 07/17/12 15:00:00, Stop date: 07/17/12 15:00:00 [facility] At[facility] 2012-07-16 08:47:00 No Sergo Kutsen 1 mg, Route: IVP, ONCE, Dosing Weight 66.364, kg, Priority: STAT, Start date: 07/16/12 2:47:00, Stop date: 07/16/12 2:47:00 [facility] pantoprazole 2012-07-16 05:31:00 No Sergo Kutsen 40 mg, Route: IVP, ONCE, Dosing Weight 66.364, kg, For IV push reconstitute with 10 ml 0.9% sodium chloride and push over at least 3 minutes, Priority: STAT, Start date: 07/15/12 23:31:00, Stop date: 07/15/12 23:31:00 [facility] Sodium Chloride 0.9% (Bolus) IV 500 mL 2012-07-16 05:31:00 No Sergo Kutsen 500 mL, Rate: 1, 000 ml/hr, Infuse over: 30 minutes, Route: IV, kg, Total Volume: 500, Priority: STAT, Start date: 07/15/12 23:31:00, Duration: 1 doses or times, Stop date: 07/16/12 0:00:00 Jorje chavira [facility] Saline Flush 0.9% 2012-07-16 05:31:00 No Sergo Kutsen 5 mL, Route: IVP, Drug Form: INJ, Dosing Weight 66.364, kg, PRN, PRN Line Flush, Start date: 07/15/12 23:31:00, Duration: 24 hr, Stop date: 07/16/12 23:30:00 [facility] ondansetron 2012-07-16 05:31:00 No Sergo Kutsen 4 mg, Route: IVP, ONCE, Dosing Weight 66.364, kg, Priority: STAT, Start date: 07/15/12 23:31:00, Stop date: 07/15/12 23:31:00 [facility] 2012-07-16 05:31:00 No Sergo Kutsen 1 mg, Route: IVP, ONCE, Dosing Weight 66.364, kg, Priority: STAT, Start date: 07/15/12 23:31:00, Stop date: 07/15/12 23:31:00 [facility] levofloxacin 500 mg/100 mL intravenous solution 2012-07-11 13:20:04 Yes Enayet Rahim 500 mg, 100 mL, IVPB, [id number], 7 mL, Substitution Allowed, INJ [facility] Mcgregor 5/325 oral tablet 2012-07-11 13:19:45 Yes Enayet R ahim 1 tab, PO, Q4H, PRN, 12 tab, for pain, Substitution Allowed, Maintenance, TAB [facility] Mcgregor 10/325 oral tablet 2012-07-11 13:18:00 No Enayet Rahim 1 tab, Route: PO, Drug Form: TAB, Dosing Weight 66.818, kg, Q6H, PRN Pain, Start date: 07/11/12 7:18:00, Duration: 30 day, Stop date: 08/10/12 7:17:00 [facility] Protonix 2012-07-10 22:30:00 No Enayet Rahim 40 mg, 1 tab, Route: PO, Drug form: ECTAB, Before Dinner, Dosing Weight 59.091, kg, Start date: 07/10/12 16:30:00, Duration: 30 day, Stop date: 08/08/12 16:30:00 [facility] amitriptyline 2012-07-10 03:00:00 No Enayet Rahim 50 mg, 1 tab, Route: PO, Drug form: TAB, Bedtime, Dosing Weight 66.818, kg, Start date: 07/09/12 21:00:00, Duration: 30 day, Stop date: 08/07/12 21:00:00 [facility] Ambien 2012-07-09 23:41:00 No Enayet Rahim 10 mg, 1 tab, Route: PO, Drug form: TAB, Bedtime, Dosing Weight 66.818, kg, PRN Insomnia, Start date: 07/09/12 17:41:00, Duration: 30 day, Stop date: 08/08/12 17:40:00 [facility] Protonix 2012-07-09 22:30:00 No Enayet Rahim 40 mg, Route: IVP, Drug form: INJ, Before Dinner, Dosing Weight 59.091, kg, Start date: 07/09/12 16:30:00, Duration: 30 day, Stop date: 08/07/12 16:30:00 [facility] diazepam 2012-07-09 20:57:00 No Enayet Rahim 10 mg, 2 tab, Route: PO, Drug form: TAB, Q6H, Dosing Weight 66.818, kg, Start date: 07/09/12 14:57:00, Stop date: 08/08/12 10:00:00 [facility] enoxaparin 2012-07-09 18:00:00 No Enayet Rahim 40 mg, 0.4 mL, Route: SUB-Q, Drug form: INJ, [id number], Dosing Weight 59.091, kg, Start date: 07/09/12 12:00:00, Duration: 30 day, Stop date: 08/07/12 13:00:00 [facility] Levaquin 2012-07-09 18:00:00 No Enayet Rahim 500 mg, 100 mL, Route: IVPB, Drug form: INJ, [id number], Dosing Weight 59.091, kg, Start date: 07/09/12 12:00:00, Duration: 30 day, Stop date: 08/07/12 13:00:00 [facility] Phenergan + Sodium Chloride 0.9% IV 50 mL 2012-07-09 17:12 :00 No Enayet Rahim 12.5 mg, 0.5 mL, Route: IVPB, Q4H, Dosing Weight 59.091, kg, PRN Nausea & Vomiting, Start date: 07/09/12 11:12:00, Stop date: 08/08/12 11:11:00 [facility] Dilaudid 2012-07-09 17:12:00 No Enayet Rahim 1 mg, 1 mL, Route: IV, Drug form: SOLN, Q3H, Dosing Weight 59.091, kg, PRN Pain, Start date: 07/09/12 11:12:00, Duration: 30 day, Stop date: 08/08/12 11:11:00 [facility] acetaminophen 2012-07-09 17:08:00 No Enayet Rahim 650 mg, 2 tab, Route: PO, Drug form: TAB, Q4H, Dosing Weight 59.091, kg, PRN Pain/Fever, Start date: 07/09/12 11:08:00, Duration: 30 day, Stop date: 08/08/12 11:07:00 [facility] NS + KCL 20mEq/L 1000ml (Premix) 1,000 mL 2012-07-09 17:08 :00 No Enayet Rahim 1,000 mL, Rate: 100 ml/hr, Infuse over: 10 hr, Route: IV, kg, Total Volume: 1,000, Start date: 07/09/12 11:08:00, Duration: 30 day, Stop date: 08/08/12 11:07:00 [facility] Saline Flush 0.9% 2012-07-09 17:08:00 No Enayet Rahim 5 ml, Route: IVP, Drug Form: INJ, Dosing Weight 59.091, kg, PRN, PRN Line Flush, Start date: 07/09/12 11:08:00, Duration: 30 day, Stop date: 08/08/12 12:07:00 [facility] temazepam 2012-07-09 17:08:00 No Enayet Rahim 15 mg, 1 cap, Route: PO, Drug form: CAP, Bedtime, Dosing Weight 59.091, kg, PRN Insomnia, Start date: 07/09/12 11:08:00, Duration: 30 day, Stop date: 08/08/12 11:07:00 [facility] docusate 2012-07-09 17:08:00 No Enayet Rahim 100 mg, 1 cap, Route: PO, Drug form: CAP, BID, Dosing Weight 59.091, kg, PRN Constipation, Start date: 07/09/12 11:08:00, Duration: 30 day, Stop date: 08/08/12 11:07:00 [facility] Mcgregor 5/325 oral tablet 2012-07-08 10:25:33 Yes Enayet R ahim 1 tab, PO, Q4H, PRN, 12 tab, for pain, Substitution Allowed, Maintenance, TAB [facility] Sodium Chloride 0.9% (Bolus) IV 2012-07-08 08:00:00 No Asem Souman 500 mL, Route: IV, Dosing Weight 59.091, kg, ONCE, Bolus Dose - infuse over 1 hr, STAT, Start date: 07/08/12 2:00:00, Stop date: 07/08/12 2:00:00 [facility] Zofran 2012-07-08 08:00:00 No Asem Souman 4 mg, Route: IVP, Drug form: INJ, ONCE, Dosing Weight 59.091, kg, PRN Nausea, Priority: STAT, Start date: 07/08/12 2:00:00 [facility] morphine Sulfate 2012-07-08 07:59:00 No Asem Souman 4 mg, Route: IV, ONCE, Dosing Weight 59.091, kg, Start date: 07/08/12 1:59:00, Stop date: 07/08/12 1:59:00 [facility] Ultram 50 mg oral tablet 2012-07-07 08:16:34 Yes Antonio Hope 50 mg, 1 tab, PO, Q4H, PRN, 12 tab, pain, Substitution Allowed [facility] Benadryl 2012-07-07 07:11:00 No Antonio Hope 25 mg, Route: PO, Drug form: CAP, ONCE, Dosing Weight 66.364, kg, Priority: STAT, Start date: 07/07/12 1:11:00, Stop date: 07/07/12 1:11:00 [facility] ondansetron 2012-07-07 06:05:00 No Antonio Hope 4 mg, 2 mL, Route: IVP, Drug form: INJ, ONCE, Dosing Weight 66.364, kg, Priority: STAT, Start date: 07/07/12 0:05:00, Stop date: 07/07/12 0:05:00 [facility] Sodium Chloride 0.9% (Bolus) IV 2012-07-07 06:05:00 No Antonio Hope 500 mL, 1000 ml/hr, Route: IV, Drug Form: INJ, Dosing Weight 66.364, kg, ONCE, Bolus at 1,000 ml/hr, STAT, Start date: 07/07/12 0:05:00, Stop date: 07/07/12 0:05:00 [facility] Saline Flush 0.9% 2012-07-07 06:05:00 No Antonio bailey 5 mL, Route: IVP, Drug Form: INJ, Dosing Weight 66.364, kg, PRN, PRN Line Flush, Start date: 07/07/12 0:05:00, Duration: 24 hr, Stop date: 07/08/12 0:04:00 [facility] morphine Sulfate 2012-07-07 06:05:00 No Antonio cole 4 mg, 2 mL, Route: IVP, Drug form: INJ, ONCE, Dosing Weight 66.364, kg, Priority: STAT, Start date: 07/07/12 0:05:00, Stop date: 07/07/12 0:05:00 [facility] droperidol 2012-05-31 15:20:00 No Antonio Hope 1.25 mg, Route: IVP, ONCE, Dosing Weight 65, kg, PRN Nausea & Vomiting, Start date: 05/31/12 9:20:00 [facility] Reglan 2012-05-31 14:31:00 No Antonio Hope 10 mg, Route: IVP, ONCE, Dosing Weight 65, kg, Priority: STAT, Start date: 05/31/12 8:31:00, Stop date: 05/31/12 8:31:00 [facility] Zofran 2012-05-31 13:57:00 No Antonio Gravesehan 4 mg, 2 mL, Route: IVP, Drug form: INJ, ONCE, Dosing Weight 65, kg, Priority: STAT, Start date: 05/31/12 7:57:00, Stop date: 05/31/12 7:57:00 [facility] Sodium Chloride 0.9% (Bolus) IV 2012-05-31 13:57:00 No Antonio Hope 1,000 mL, 1000 ml/hr , Route: IV, Drug Form: INJ, Dosing Weight 65, kg, ONCE, Bolus Dose. Infuse over 1 hour., STAT, Start date: 05/31/12 7:57:00, Stop date: 05/31/12 7:57:00 [facility] Saline Flush 0.9% 2012-05-31 13:57:00 No Antonio bailey 5 ml, Route: IVP, Drug Form: INJ, Dosing Weight 65, kg, PRN, PRN Line Flush, Start date: 05/31/12 7:57:00, Duration: 30 day, Stop date: 06/30/12 7:56:00 [facility] Esgic 2012-04-08 23:54:00 No Temi Forrest 1 tab, Route: PO, Drug Form: TAB, ONCE, Start date: 04/08/12 17:54:00, Stop date: 04/08/12 17:54:00 [facility] Midrin 2012-04-08 23:31:00 No Temi Forrest 1 tab, Route: PO, Drug Form: CAP, Dosing Weight 61.818, kg, ONCE, Start date: 04/08/12 17:31:00, Stop date: 04/08/12 [facility] mg oral tablet, disintegrating 2012-04-08 23: 20:49 Yes Temi Forrest 4 mg, 1 tab, P O, BID, PRN, Dissolve tab under tongue, 10 tab, Nausea and Vomiting, Substitution AllowedDissolve tab under tongue [facility] Zofran 2012-04-08 23:04:00 No Temi Forrest 4 mg, Route: IVP, Drug form: INJ, ONCE, Dosing Weight 61.818, kg, Priority: STAT, Start date: 04/08/12 17:04:00, Stop date: 04/08/12 17:04:00 [facility] Motrin 2012-04-08 22:27:00 No Temi Rose Forrest 800 mg, Route: PO, Drug form: TAB, ONCE, Dosing Weight 61.818, kg, Priority: STAT, Start date: 04/08/12 16:27:00, Stop date: 04/08/12 16:27:00 [facility] EpiPen Auto-Injector 0.3 mg injectable kit 2012-02-17 00:1 8:09 Yes Isolde Sasam Aguhar 0.3 mg, IM, ONCE, 1 kit, Substitution Allowed, SOLN [facility] epinephrine 1 mg/mL injectable solution 2012-02-16 21:21:0 0 No Isolde Sasam Aguhar 0.3 mg, Route: I M, ONCE, Dosing Weight 61.818, kg, Priority: STAT, Start date: 02/16/12 16:21:00, Stop date: 02/16/12 16:21:00 [facility] diphenhydrAMINE 2012-02-16 21:13:00 No Isolde Margaritaam Klarissa philomena 25 mg, Route: IVP, ONCE, Dosing Weight 61.818, kg, Priority: STAT, Start date: 02/16/12 16:13:00, Stop date: 02/16/12 16:13:00 [facility] LORAzepam 2012-02-16 21:13:00 No Isolde Sasam Aguhar 1 mg, Route: PO, ONCE, Dosing Weight 61.818, kg, Priority: STAT, Start date: 02/16/12 16:13:00, Stop date: 02/16/12 16:13:00 [facility] epinephrine topical 1:1000 solution 2012-02-16 21:13:00 No Isolde Sasam Aguhar 0.3 mL, Route: I M, ONCE, Start date: 02/16/12 16:13:00, Stop date: 02/16/12 16:13:00 [facility] famotidine 2012-02-16 21:13:00 No Isolde Sasam Aguhar 20 mg, Route: IVP, ONCE, Dosing Weight 61.818, kg, Priority: STAT, Start date: 02/16/12 16:13:00, Stop date: 02/16/12 16:13:00 M jeremy Dunn NS 500 mL 2012-02-16 21:12:00 No Yoel Leblanc Aguhar 500 mL, Rate: 1,000 ml/hr, Infuse over: 0.5 hr, Route: IV, Dosing Weight 61.818 kg, Total Volume: 500, Start date: 02/16/12 16:12:00, Duration: 1 doses or times, Stop date: 02/16/12 16:41:00, Bolus DoseBolus Dose [facility] Toradol 30 mg/mL injectable solution 2012-01-25 05:13:00 No Asem Souman 30 mg, Route: IV, Drug form: INJ, ONCE, Dosing Weight 62.727, kg, Priority: STAT, Start date: 01/25/12 0:13:00, Stop date: 01/25/12 0:13:00 [facility] Sodium Chloride 0.9% (Bolus) IV 1000 mL 2012-01-25 02:58:00 No Asem Souman 1,000 mL, Rate: 1,00 0 ml/hr, Infuse over: 1 hr, Route: IV, kg, Total Volume: 1,000, Bolus Dose, Priority: STAT, Start date: 01/24/12 21:58:00, Duration: 1 doses or times, Stop date: 01/24/12 22:57:00 [facility] MiraLax 2012-01-02 22:00:00 No Kaylee Jarvis Surapa neni 17 gm, 1 pkt, Route: PO, Drug form: PWDR, BID, kg, Start date: 01/02/12 17:00:00, Duration: 30 day, Stop date: 02/01/12 9:00:00 [facility] vitamin A & D topical 2012-01-02 02:00:00 No Enayet Rah im 1 appl, Route: TOP, QID, Drug form: OINT, Start date: 01/01/12 21:00:00, Duration: 30 day, Stop date: 01/31/12 17:00:00 Herbert Lockett GoLYTELY 2012-01-01 22:17:00 No Sri Matheus Matheus Surap aneni 4,000 ml, Route: PO, Drug Form: PDR/REC, kg, ONCE, Start date: 01/01/12 17:17:00, Duration: 1 doses or times, Stop date: 01/01/12 17:17:00 [facility] Zofran 2012-01-01 19:09:00 No Kaylee Jarvis Surapan gabe 4 mg, 2 mL, Route: IVP, Drug form: INJ, Q6H, kg, PRN Nausea, Start date: 01/01/12 14:09:00, Duration: 30 day, Stop date: 01/31/12 14:08:00 [facility] Ativan 2012-01-01 16:02:00 No Enayet Rahim 1 mg, 0.5 mL, Route: IV, Drug form: INJ, Q4H, kg, PRN Anxiety, Priority: NOW, Start date: 01/01/12 11:02:00, Duration: 30 day, Stop date: 01/31/12 11:01:00 [facility] Pristiq 50 mg oral tablet, extended release 2012-01-01 14: 00:00 No Enayet Rahim 50 mg, 1 tab, Ro aniak: PO, Drug form: ERTAB, Daily, Dosing Weight 66.818, kg, Start date: 01/01/12 9:00:00, Duration: 30 day, Stop date: 01/30/12 9:00:00 [facility] Protonix 2012-01-01 14:00:00 No Enayet Rahim 40 mg, Route: IVP, Drug form: INJ, Daily, kg, Patient is NPO, Start date: 01/01/12 9:00:00, Duration: 30 day, Stop date: 01/30/12 9:00:00 Herbert Lockett Pt's own med DESVENLAFAXINE Pt's own med 2012-01-01 14:00:00 No Enayet Rahim Pt's own med DESVENLAFAXINE Pt's own med, 50 mg, Drug form: MISC, Route: PO, Daily, 01/01/12 9:00:00, Duration: 30 day, Stop date: 01/30/12 9:00:00 [facility] Saline Flush 0.9% 2012-01-01 13:33:00 No Enayet Rahim 5 ml, Route: IVP, Drug Form: INJ, kg, PRN, PRN Line Flush, Start date: 01/01/12 8:33:00, Duration: 30 day, Stop date: 01/31/12 8:32:00 [facility] Sodium Chloride 0.45% IV 1,000 mL 2012-01-01 13:33:00 No Enayet Rahim 1,000 mL, Rate: 125 ml/hr, Infuse over: 8 hr, Route: IV, Dosing Weight 66.818 kg, Total Volume: 1,000, Start date: 01/01/12 8:33:00, Duration: 30 day, Stop date: 01/31/12 8:32:00 [facility] ondansetron 2012-01-01 13:33:00 No Enayet Rahim 4 mg, 2 mL, Route: IVP, Drug form: INJ, ONCE, kg, PRN Nausea & Vomiting, Start date: 01/01/12 8:33:00 [facility] Esgic 2012-01-01 05:36:00 No Enayet Rahim 1 tab, Route: PO, Drug Form: TAB, Q4H, PRN Other -See Comment, Start date: 01/01/12 0:36:00, Duration: 30 day, Stop date: 01/31/12 0:35:00 Carmen [facility] temazepam 2012-01-01 04:59:00 No Enayet Rahim 15 mg, 1 cap, Route: PO, Drug form: CAP, Bedtime, kg, Start date: 12/31/11 23:59:00, Duration: 30 day, Stop date: 01/30/12 21:00:00 [facility] nitroglycerin 0.4 mg sublingual tablet 2012-01-01 04:44:00 No Enayet Rahim 0.4 mg, 1 tab, Route : SL, Drug form: TAB, Q5Min, PRN Chest Pain, Start date: 12/31/11 23:44:00, Duration: 30 day, Stop date: 01/30/12 23:43:00 [facility] atropine 2012-01-01 04:43:00 No Enayet Rahim 0.5 mg, 5 mL, Route: IVP, Drug form: INJ, PRN, PRN Bradycardia, Start date: 12/31/11 23:43:00, Duration: 30 day, Stop date: 01/30/12 23:42:00 Gurpreet orivannesa Dunn trazodone 2012-01-01 02:29:00 No Enayet Rahim 150 mg, 3 tab, Route: PO, Drug form: TAB, Bedtime, kg, PRN Sleep, Start date: 12/31/11 21:29:00, Duration: 30 day, Stop date: 01/30/12 21:28:00 [facility] NS + KCL 20mEq/L 1000ml (Premix) 1,000 mL 2012-01-01 02:27 :00 No Enayet Rahim 1,000 mL, Rate: 125 ml/hr, Infuse over: 8 hr, Route: IV, Dosing Weight 66.818 kg, Total Volume: 1,000, Start date: 12/31/11 21:27:00, Duration: 30 day, Stop date: 01/30/12 21:26:00 [facility] Shaun trazodone 150 mg oral tablet 2012-01-01 02:14:28 Yes Jenny yet Rahim 150 mg, 1 tab, PO, Bedtime, PRN, 30 tab, insomnia (for waking up after taking other sleep meds), Substitution Allowed, TAB Violetta lenztxvannesa [place] temazepam 15 mg oral capsule 2012-01-01 02:12:52 Yes Jenny yet Rahim 15 mg, 1 cap, PO, Bedtime, Substitution Allowed, with zolpidem for PTSDwith zolpidem for PTSD [facility] zolpidem 10 mg oral tablet 2012-01-01 02:12:02 Yes 20 mg, 2 tab, PO, Bedtime, Substitution Allowed, with temazepam for PTSDwith temazepam for PTSD [facility] Fioricet 2012-01-01 00:57:00 No Antonio Hope 1 tab, Route: PO, Drug Form: TAB, kg, ONCE, Start date: 12/31/11 19:57:00, Stop date: 12/31/11 19:57:00 [facility] Zofran 2012-01-01 00:27:00 No Antonio Hope 4 mg, Route: PO, ONCE, Dosing Weight 66.818, kg, Start date: 12/31/11 19:27:00, Stop date: 12/31/11 19:27:00 [facility] acetaminophen 2011-12-31 23:21:00 No Antonio Escamilla an 975 mg, 3 tab, Route: PO, Drug form: TAB, ONCE, kg, Priority: STAT, Start date: 12/31/11 18:21:00, Stop date: 12/31/11 18:21:00 [facility] Sodium Chloride 0.9% (Bolus) IV 1,000 mL 2011-12-31 23:20: 00 No Antonio Hope 1,000 mL, Rate: 1,000 ml/hr, Infuse over: 1 hr, Route: IV, Dosing Weight 66.818 kg, Total Volume: 1,000, Bolus Dose, Priority: STAT, Start date: 12/31/11 18:20:00, Duration: 1 doses or times, Stop date: 12/31/11 19:19:00 [facility] Zofran 2011-12-31 05:45:00 No Sergo Paradaen 4 mg, Route: IVP, Drug form: INJ, ONCE, Dosing Weight 66.875, kg, Priority: STAT, Start date: 12/31/11 0:45:00, Stop date: 12/31/11 0:45:00 [facility] orial Shaun morphine Sulfate 2011-12-31 05:13:00 No Sergo Paradaen 2 mg, Route: IVP, ONCE, Dosing Weight 66.875, kg, Start date: 12/31/11 0:13:00, Stop date: 12/31/11 0:13:00 [facility] Saline Flush 0.9% 2011-12-31 04:07:00 No Sergo Paradaen 5 ml, Route: IVP, Drug Form: INJ, kg, PRN, PRN Line Flush, Start date: 12/30/11 23:07:00, Duration: 24 hr, Stop date: 12/31/11 23:06:00 [facility] NS (Bolus) IV 1,000 mL 2011-10-16 06:26:00 Orquidea Gomesel 1,000 mL, Rate: 1,000 ml/hr, Infuse over: 1 hr, Route: IV, Dosing Weight 63 kg, Total Volume: 1,000, Priority: STAT, Start date: 10/16/11 1:26:00, Duration: 1 doses or times, Stop date: 10/16/11 2:25:00, Bolus DoseBolus Dose [facility] Shaun Fioricet with Codeine oral capsule 2011-10-10 19:17:23 Y es Kaisen Fang 2 cap, PO, Q4H, PRN, 20 cap, for headach e, Substitution Allowed, Maintenance, CAP Roger Dunn Pristiq 50 mg oral tablet, extended release 2011-10-10 14: 00:00 No Kaisen Fang 50 mg, 1 tab, Ro aniak: PO, Drug form: ERTAB, Daily, Start date: 10/10/11 9:00:00, Duration: 30 day, Stop date: 11/08/11 9:00:00 Roger Dunn Pristiq 50mg 2011-10-10 14:00:00 No Kaisen Fang Pristiq 50mg, (pt's own med), Drug form: MISC, Route: PO, Daily, 10/10/11 9:00:00, Duration: 30 day, Stop date: 11/08/11 9:00:00 [facility] Felix barrientos Benadryl 2011-10-10 00:07:00 No Kaisen Fang 25 mg, 0.5 mL, Route: IV, Drug form: INJ, QID, PRN as needed for allergy symptoms, Start date: 10/09/11 19:07:00, Duration: 30 day, Stop date: 11/08/11 19:06:00 [facility] diazepam 2011-10-09 22:00:00 No Kaisen Fang 10 mg, 1 tab, Route: PO, Drug form: TAB, QID, Start date: 10/09/11 17:00:00, Duration: 30 day, Stop date: 11/08/11 13:00:00 [facility] Shaun Fioricet with Codeine 2011-10-09 21:33:00 No Kaisen Fan g Fioricet with Codeine, (pt's own med), Drug form: MISC, Route: PO, Q4H, PRN Pain, 10/09/11 16:33:00, Duration: 30 day, Stop date: 11/08/11 16:32:00 [facility] 2011-10-09 21:29:00 No Kaisen Fang 1 tab, Route: PO, Drug Form: TAB, Q4H, PRN Headache, Start date: 10/09/11 16:29:00, Duration: 30 day, Stop date: 11/08/11 16:28:00 [facility] with Codeine 2011-10-09 21:28:00 No Kaisen Fan g 1 cap, Route: PO, Drug Form: CAP, Q4H, PRN Headache, Start date: 10/09/11 16:28:00, Duration: 30 day, Stop date: 11/08/11 16:27:00 [facility] Jamieien 2011-10-09 20:54:00 No Kaisen Fang 20 mg, 2 tab, Route: PO, Drug form: TAB, Bedtime, PRN Sleep, Start date: 10/09/11 15:54:00, Duration: 30 day, Stop date: 11/08/11 15:53:00 [facility] Motrin 2011-10-09 20:27:00 No Kaisen Fang 600 mg, 3 tab, Route: PO, Drug form: TAB, QID, PRN Pain, Start date: 10/09/11 15:27:00, Duration: 30 day, Stop date: 11/08/11 15:26:00 [facility] trazodone 50 mg oral tablet 2011-10-09 20:26:00 No David en Fang 50 mg, 1 tab, Route: PO, Drug form: TAB, Bedtime, PRN Anxiety, Start date: 10/09/11 15:26:00, Duration: 30 day, Stop date: 11/08/11 [facility] 20:26:00 No Kaisen Fang 25 mg, Route: PO, Drug form: ERTAB, Bedtime, PRN as needed for sleep, Start date: 10/09/11 15:26:00, Duration: 30 day, Stop date: 11/08/11 15:25:00 [facility] Tylenol 2011-10-09 17:08:00 No Kaisen Fang 650 mg, 2 tab, Route: PO, Drug form: TAB, Q6H, PRN Pain, Start date: 10/09/11 12:08:00, Duration: 30 day, Stop date: 11/08/11 12:07:00 [facility] Saline Flush 0.9% 2011-10-09 14:00:00 No Kaisen Fang 5 ml, Route: IVP, Drug Form: INJ, Q12H, Start date: 10/09/11 9:00:00, Duration: 30 day, Stop date: 11/07/11 21:00:00 [facility] Benadryl 2011-10-09 10:50:00 No Kaisen Fang 50 mg, Route: IVP, ONCE, benadryl 50mg ivp x1 dose now, Start date: 10/09/11 5:50:00, Stop date: 10/09/11 5:50:00 [facility] Benadryl 2011-10-09 10:46:00 No Kaisen Fang 50 mg, 1 mL, Route: IVP, Drug form: INJ, ONCE, PRN Itching, Start date: 10/09/11 5:46:00 [facility] trazodone 50 mg oral tablet 2011-10-09 09:57:12 Yes David en Fang 50 mg, 1 tab, PO, PRN, as needed for insomnia if ambien does not work, Substitution Allowed, TAB [facility] Ambien CR 12.5 mg oral tablet, extended release 2011-10-09 09:56:22 Yes Kaisen Fang 25 mg, 2 tab, PO , Bedtime, PRN, for sleep, Substitution Allowed, ERTAB [facility] nitroglycerin 0.4 mg sublingual tablet 2011-10-09 09:49:00 No Kaisen Fang 0.4 mg, 1 tab, Route: SL Dr ug form: TAB, Q5Min, PRN Chest Pain, Start date: 10/09/11 4:49:00, Duration: 30 day, Stop date: 11/08/11 4:48:00 [facility] atropine 2011-10-09 09:48:00 No Kaisen Fang 0.5 mg, 5 mL, Route: IVP, Drug form: INJ, PRN, PRN Bradycardia, Start date: 10/09/11 4:48:00, Duration: 30 day, Stop date: 11/08/11 4:47:00 Herbert Lockett Saline Flush 0.9% 2011-10-09 09:44:00 No John Domínguez 5 ml, Route: IVP, Drug Form: INJ, PRN, PRN Line Flush, Start date: 10/09/11 4:44:00, Duration: 30 day, Stop date: 11/08/11 4:43:00 Herbert Lockett acetaminophen-hydrocodone 325 mg-5 mg oral tablet 08:40:00 No Antonio Hope 1 tab, Rout e: PO, ONCE, STAT, Start date: 10/09/11 3:40:00, Stop date: 10/09/11 3:40:00 Gurpreet Dunn potassium chloride 2011-10-09 08:33:00 No Antonio Hope 40 mEq, Route: PO, Drug form: ERTAB, ONCE, Priority: STAT, Start date: 10/09/11 3:33:00, Stop date: 10/09/11 3:33:00 Mem burton Dunn 1/2NS 1,000 mL 2011-10-09 07:53:00 No Antonio pradhan 1,000 mL, Rate: 125 ml/hr, Infuse over: 8 hr, Route: IV, Dosing Weight 62.727 kg, Total Volume: 1,000, Start date: 10/09/11 2:53:00, Duration: 30 day, Stop date: 11/08/11 2:52:00 [facility] influenza virus vaccine, inactivated 2011-03-31 15:00:00 No SYSTEM SYSTEM 0.5 ml, Route: IM, Drug Form : INJ, Start date: 03/31/11 9:00:00, Stop date: 03/31/11 9:00:00 [facility] Acetaminophen With Codeine (Tylenol With Codeine #4 Ta blet) 1 Each TABLET Acetaminophen With Codeine (Tylenol With Codeine #4 Tablet) 1 Each TABLET Yes 1 Every 6 Hours [facility] Citalopram Hydrobromide (Celexa) 40 Mg TABLET Citalopr am Hydrobromide (Celexa) 40 Mg TABLET Yes 40 Daily [facility] Diazepam Diazepam Yes 10 Every 8 Hours [facility] Dicyclomine Hcl (Bentyl) 10 Mg CAPSULE Dicyclomine Hcl (Bentyl) 10 Mg CAPSULE Yes 15 Three Times A Day [facility] Diphenoxylate Hcl/Atropine (Lomotil Tablet) 1 Each TAB LET Diphenoxylate Hcl/Atropine (Lomotil Tablet) 1 Each TABLET Yes 1 Every 6 Hours as needed for Diarrhea [facility] Gabapentin Gabapentin Yes 800 Three Times A Day [facility] Hydromorphone Hcl (Dilaudid) 2 Mg TAB Hydromorphone Hcl (Dilaudid) 2 Mg TAB Yes 25 [facility] Mertazapine Mertazapine Yes 15 Bedtime [facility] Promethazine Hcl Promethazine Hcl Yes 50 Every 6 Hours [facility] Temazepam Temazepam Yes 15 Bedtime [facility] Tizanidine Hcl Tizanidine Hcl Yes 4 Three Time s A Day [facility] Zolpidem Tartrate (Ambien) 10 Mg TABLET Zolpidem Tartrate (A mbien) 10 Mg TABLET Yes 10 Bedtime [facility] Albuterol Sulfate (Proair Hfa Inhaler*) 8.5 Gm INH Alb uterol Sulfate (Proair Hfa Inhaler*) 8.5 Gm INH 2017-07-09 00:00:00 No 2 Da osiris [facility] Chlordiazepoxide/Clidinium Br (Chlordiazepoxide-Clidin ium Cap) 1 Each CAPSULE Chlordiazepoxide/Clidinium Br (Chlordiazepoxide-Clidinium Cap) 1 Each CAPSULE 2017-07-09 00:00:00 No 1 Daily [facility] Chlordiazepoxide/Clidinium Br (Librax Capsule) 1 Each CAPSULE Chlordiazepoxide/Clidinium Br (Librax Capsule) 1 Each CAPSULE 2017-07-09 00:00:00 No 20 Bedtime [facility] Fentanyl Fentanyl 2017-07-09 00:00:00 No 50 Q72 Hrs [facility] Folic Acid Folic Acid 2017-07-09 00:00:00 No 3 Trini ly [facility] Mesalamine (Pentasa) 500 Mg CAPCR Mesalamine (Pentasa) 500 Mg CA PCR 2017-07-09 00:00:00 No 1000 Three Times A Day [facility] Mirtazapine Mirtazapine 2017-07-09 00:00:00 No 15 B edtime [facility] Ondansetron (Zofran Odt) 4 Mg TAB.RAPDIS Ondansetron ( Zofran Odt) 4 Mg TAB.RAPDIS 2017-07-09 00:00:00 No 8 E very 6 Hours as needed for Nausea And Vomiting [facility] Pro Plus Pro Plus 2017-07-09 00:00:00 No 1 Daily [facility] Rifaximin (Xifaxan) 550 Mg TABLET Rifaximin (Xifaxan) 550 Mg TAB LET 2017-07-09 00:00:00 No 1 Twice A Day [facility] Oseltamivir Phosphate (Tamiflu) 75 Mg CAP Oseltamivir Phosphate (Tamiflu) 75 Mg CAP 2016-09-03 00:00:00 No 75 Twice A Day [facility] Diphenoxylate Hcl/Atropine (Lomotil Tablet) 1 Each TAB LET Diphenoxylate Hcl/Atropine (Lomotil Tablet) 1 Each TABLET 2016-08-10 00:00:00 No 1 Daily [facility] Pantoprazole Sodium (Protonix) 40 Mg TABLET. Pantopr azole Sodium (Protonix) 40 Mg TABLET. 2016-08-10 00:00:00 No 40 Daily [facility] Propranolol Hcl Propranolol Hcl 2016-08-10 00:00:00 No 120 Daily [facility] Cephalexin Monohydrate (Keflex) 500 Mg CAPSULE Cephale misael Monohydrate (Keflex) 500 Mg CAPSULE 2016-03-15 00:00:00 No 500 Four Time s Daily [facility] Clarithromycin (Biaxin) 500 Mg TABLET Clarithromycin (Biaxin) 50 0 Mg TABLET 2016-03-09 00:00:00 No 500 Twice A Day [facility] Metronidazole Metronidazole 2016-03-09 00:00:00 No 500 Three Times A Day [facility] Temazepam (Restoril) 30 Mg CAPSULE Temazepam (Restoril) 30 Mg CA PSULE 2016-03-09 00:00:00 No 40 Bedtime [facility] Acetaminophen With Codeine (Tylenol With Codeine #3 Ta blet) 1 Each TABLET Acetaminophen With Codeine (Tylenol With Codeine #3 Tablet) 1 Each TABLET 2015-12-01 00:00:00 No 300 Every 4 Hours for Pa in [facility] Cyclobenzaprine Hcl (Flexeril) 5 Mg TABLET Cyclobenzap rine Hcl (Flexeril) 5 Mg TABLET 2015-12-01 00:00:00 No 10 [facility] Ibuprofen (Motrin) 200 Mg TAB Ibuprofen (Motrin) 200 Mg TAB 2015-12-01 00:00:00 No 400 Every 6 Hours [facility] Vital Signs Vital Name Observation Time Observation Value Comments Source Body Temperature 2019-10-15 07:45:00 98.6 [degF] [facility] BMI (Body Mass Index) 2019-10-15 00:51:00 33.5 kg/m2 [facility] Weight 2019-10-12 01:29:00 214 [lb_av] [facility] Respitory Rate 2016-08-05 10:45:00 Herbert al Shaun Systolic (mm Hg) 2016-08-05 10:45:00 Jorje rial Shaun Diastolic (mm Hg) 2016-08-05 10:45:00 Gurpreet orial Shaun Heart Rate 2016-08-05 10:45:00 [facility] Temperature Oral (F) 2016-08-05 10:45:00 96.8 F [facility] Height 2016-08-05 07:44:00 170.18 cm [facility] Weight 2016-08-05 07:44:00 [facility] BMI Calculated 2016-08-05 07:44:00 [facility] [place] Temperature Oral (F) 2016-08-05 07:44:00 97.5 F [facility] [place] Systolic (mm Hg) 2016-08-05 07:44:00 Jorje rial [place] Diastolic (mm Hg) 2016-08-05 07:44:00 Mem orial Shaun Heart Rate 2016-08-05 07:44:00 [facility] Respitory Rate 2016-08-05 07:44:00 Memori al Shaun Respitory Rate 2016-07-13 18:25:00 Memori al Shaun Heart Rate 2016-07-13 18:25:00 [facility] Systolic (mm Hg) 2016-07-13 18:25:00 Jorje rial [place] Diastolic (mm Hg) 2016-07-13 18:25:00 [facility] Temperature Oral (F) 2016-07-13 18:25:00 97.8 F [facility] Heart Rate 2016-07-13 15:39:00 [facility] [place] Systolic (mm Hg) 2016-07-13 15:39:00 Jorje [facility] [place] Diastolic (mm Hg) 2016-07-13 15:39:00 [facility] Respitory Rate 2016-07-13 15:39:00 [facility] [place] Systolic (mm Hg) 2016-07-13 13:05:00 Jorje [facility] [place] Diastolic (mm Hg) 2016-07-13 13:05:00 [facility] Respitory Rate 2016-07-13 13:05:00 [facility] Heart Rate 2016-07-13 13:05:00 [facility] [place] Temperature Oral (F) 2016-07-13 10:07:00 98 F [facility] [place] Height 2016-07-13 09:46:00 167.64 cm [facility] BMI Calculated 2016-07-13 09:46:00 [facility] Weight 2016-07-13 09:46:00 [facility] [place] Temperature Oral (F) 2016-07-13 09:46:00 98.3 F [facility] Respitory Rate 2016-05-10 18:00:00 [facility] Temperature Oral (F) 2016-05-10 18:00:00 98.5 F [facility] Heart Rate 2016-05-10 18:00:00 [facility] Systolic (mm Hg) 2016-05-10 18:00:00 Jorje [facility] [place] Diastolic (mm Hg) 2016-05-10 18:00:00 [facility] [place] Respitory Rate 2016-05-10 15:03:00 [facility] [place] Heart Rate 2016-05-10 14:00:00 [facility] Systolic (mm Hg) 2016-05-10 14:00:00 Jorje rial [place] Diastolic (mm Hg) 2016-05-10 14:00:00 [facility] Respitory Rate 2016-05-10 14:00:00 [facility] [place] Temperature Oral (F) 2016-05-10 14:00:00 98.3 F [facility] [place] Systolic (mm Hg) 2016-05-10 10:00:00 [facility] Diastolic (mm Hg) 2016-05-10 10:00:00 [facility] [place] Heart Rate 2016-05-10 10:00:00 [facility] Temperature Oral (F) 2016-05-10 10:00:00 98.4 F [facility] Weight 2016-05-05 21:42:00 [facility] BMI Calculated 2016-05-05 21:42:00 [facility] Height 2016-05-05 21:42:00 167.64 cm [facility] Height 2016-04-30 12:50:00 167.64 cm [facility] BMI Calculated 2016-04-30 12:50:00 [facility] [place] Weight 2016-04-30 12:50:00 [facility] Height 2016-04-29 21:31:00 167.64 cm [facility] BMI Calculated 2016-04-29 21:31:00 [facility] Weight 2016-04-29 21:31:00 [facility] Systolic (mm Hg) 2016-04-12 22:23:00 [facility] Diastolic (mm Hg) 2016-04-12 22:23:00 [facility] [place] Respitory Rate 2016-04-12 22:23:00 [facility] Temperature Oral (F) 2016-04-12 22:23:00 98.0 F [facility] Heart Rate 2016-04-12 22:23:00 [facility] Weight 2016-04-12 19:10:00 [facility] Height 2016-04-12 19:10:00 167.64 cm [facility] BMI Calculated 2016-04-12 19:10:00 [facility] Respitory Rate 2016-04-12 19:09:00 [facility] Systolic (mm Hg) 2016-04-12 19:09:00 [facility] Diastolic (mm Hg) 2016-04-12 19:09:00 [facility] [place] Respitory Rate 2016-04-12 18:23:00 [facility] [place] Temperature Oral (F) 2016-04-12 18:23:00 98.0 F [facility] Heart Rate 2016-04-12 18:23:00 [facility] Systolic (mm Hg) 2016-04-12 18:23:00 [facility] [place] Diastolic (mm Hg) 2016-04-12 18:23:00 [facility] [place] Heart Rate 2016-04-12 12:29:00 [facility] Temperature Oral (F) 2016-04-12 03:21:00 98.4 F [facility] BMI Calculated 2016-04-12 00:20:00 [facility] Weight 2016-04-12 00:20:00 [facility] Height 2016-04-12 00:20:00 167.64 cm [facility] Respitory Rate 2016-04-06 09:26:00 [facility] [place] Systolic (mm Hg) 2016-04-06 09:26:00 [facility] Diastolic (mm Hg) 2016-04-06 09:26:00 [facility] Heart Rate 2016-04-06 09:26:00 [facility] Temperature Oral (F) 2016-04-06 09:26:00 97.8 F [facility] Heart Rate 2016-04-06 04:06:00 [facility] [place] Systolic (mm Hg) 2016-04-06 04:06:00 [facility] Respitory Rate 2016-04-06 04:06:00 [facility] Diastolic (mm Hg) 2016-04-06 04:06:00 [facility] [place] Temperature Oral (F) 2016-04-06 04:06:00 97.7 F [facility] Weight 2016-04-06 00:07:00 [facility] Respitory Rate 2016-04-06 00:07:00 [facility] [place] Temperature Oral (F) 2016-04-06 00:07:00 97.8 F [facility] Height 2016-04-06 00:07:00 165.1 cm [facility] BMI Calculated 2016-04-06 00:07:00 [facility] Heart Rate 2016-04-06 00:07:00 [facility] [place] Systolic (mm Hg) 2016-04-06 00:07:00 [facility] [place] Diastolic (mm Hg) 2016-04-06 00:07:00 [facility] Systolic (mm Hg) 2016-03-03 04:00:00 [facility] Diastolic (mm Hg) 2016-03-03 04:00:00 [facility] [place] Respitory Rate 2016-03-03 04:00:00 [facility] [place] Temperature Oral (F) 2016-03-03 04:00:00 98.2 F [facility] Heart Rate 2016-03-03 04:00:00 [facility] Temperature Oral (F) 2016-03-03 01:26:00 98.0 F [facility] Respitory Rate 2016-03-03 01:26:00 [facility] Systolic (mm Hg) 2016-03-03 01:26:00 [facility] Diastolic (mm Hg) 2016-03-03 01:26:00 [facility] Heart Rate 2016-03-03 01:26:00 [facility] Height 2016-03-03 00:23:00 167.64 cm [facility] BMI Calculated 2016-03-03 00:23:00 [facility] Weight 2016-03-03 00:23:00 [facility] [place] Temperature Oral (F) 2016-03-03 00:23:00 98.0 F [facility] [place] Heart Rate 2016-03-03 00:23:00 [facility] Respitory Rate 2016-03-03 00:23:00 [facility] [place] Systolic (mm Hg) 2016-03-03 00:23:00 [facility] [place] Diastolic (mm Hg) 2016-03-03 00:23:00 [facility] [place] Systolic (mm Hg) 2015-03-21 04:19:00 [facility] [place] Diastolic (mm Hg) 2015-03-21 04:19:00 [facility] Respitory Rate 2015-03-21 04:19:00 [facility] [place] Heart Rate 2015-03-21 04:19:00 [facility] [place] Temperature Oral (F) 2015-03-21 04:19:00 98.0 F [facility] Weight 2015-03-21 01:18:00 [facility] BMI Calculated 2015-03-21 01:18:00 [facility] Respitory Rate 2015-03-21 01:18:00 [facility] Heart Rate 2015-03-21 01:18:00 [facility] [place] Systolic (mm Hg) 2015-03-21 01:18:00 [facility] Diastolic (mm Hg) 2015-03-21 01:18:00 [facility] [place] Temperature Oral (F) 2015-03-21 01:18:00 98.3 F [facility] [place] Height 2015-03-21 01:18:00 167.64 cm [facility] [place] Systolic (mm Hg) 2014-09-30 04:32:00 [facility] [place] Diastolic (mm Hg) 2014-09-30 04:32:00 [facility] [place] Temperature Oral (F) 2014-09-30 04:32:00 98 F [facility] [place] Respitory Rate 2014-09-30 04:32:00 [facility] Heart Rate 2014-09-30 04:32:00 [facility] Heart Rate 2014-09-30 00:10:00 [facility] [place] Systolic (mm Hg) 2014-09-30 00:10:00 [facility] [place] Diastolic (mm Hg) 2014-09-30 00:10:00 [facility] [place] Temperature Oral (F) 2014-09-30 00:10:00 97.9 F [facility] Respitory Rate 2014-09-30 00:10:00 [facility] [place] Respitory Rate 2014-09-29 21:14:00 [facility] Systolic (mm Hg) 2014-09-29 21:14:00 [facility] Diastolic (mm Hg) 2014-09-29 21:14:00 [facility] [place] Heart Rate 2014-09-29 21:14:00 [facility] [place] Temperature Oral (F) 2014-09-29 21:14:00 97.5 F [facility] [place] BMI Calculated 2014-09-14 08:04:00 [facility] [place] Weight 2014-09-14 08:04:00 [facility] [place] Height 2014-09-14 08:04:00 167.64 cm [facility] BMI Calculated 2014-09-14 02:59:00 [facility] Weight 2014-09-14 02:59:00 [facility] [place] Height 2014-09-14 02:59:00 170.18 cm [facility] Respitory Rate 2014-02-09 16:16:00 [facility] Heart Rate 2014-02-09 16:16:00 [facility] Systolic (mm Hg) 2014-02-09 16:16:00 [facility] [place] Diastolic (mm Hg) 2014-02-09 16:16:00 [facility] [place] Temperature Oral (F) 2014-02-09 16:16:00 97.6 F [facility] BMI Calculated 2014-02-09 14:50:00 [facility] [place] Height 2014-02-09 14:50:00 167.64 cm [facility] Weight 2014-02-09 14:50:00 [facility] Diastolic (mm Hg) 2014-02-09 14:50:00 [facility] [place] Respitory Rate 2014-02-09 14:50:00 [facility] [place] Heart Rate 2014-02-09 14:50:00 [facility] Temperature Oral (F) 2014-02-09 14:50:00 97.7 F [facility] [place] Systolic (mm Hg) 2014-02-09 14:50:00 [facility] [place] Weight 2014-02-09 14:49:00 [facility] BMI Calculated 2014-02-09 14:49:00 [facility] [place] Height 2014-02-09 14:49:00 167.64 cm [facility] Diastolic (mm Hg) 2013 17:00:00 [facility] Systolic (mm Hg) 2013 17:00:00 [facility] [place] Heart Rate 2013 17:00:00 [facility] [place] Respitory Rate 2013 17:00:00 [facility] [place] Temperature Oral (F) 2013 17:00:00 98.2 F [facility] Diastolic (mm Hg) 2013 13:00:00 [facility] Systolic (mm Hg) 2013 13:00:00 [facility] [place] Respitory Rate 2013 13:00:00 [facility] [place] Temperature Oral (F) 2013 13:00:00 98.0 F [facility] Heart Rate 2013 13:00:00 [facility] Diastolic (mm Hg) 2013 10:51:00 [facility] [place] Systolic (mm Hg) 2013 10:51:00 [facility] Heart Rate 2013 10:51:00 [facility] [place] Temperature Oral (F) 2013 10:51:00 97.4 F [facility] [place] Respitory Rate 2013 05:00:00 [facility] [place] Height 2013-12-10 18:46:00 170.18 cm [facility] [place] BMI Calculated 2013-12-10 18:46:00 [facility] Weight 2013-12-10 18:46:00 [facility] Height 2013-12-07 01:22:00 170.18 cm [facility] BMI Calculated 2013-12-07 01:22:00 [facility] Weight 2013-12-07 01:22:00 [facility] Systolic (mm Hg) 2013-12-07 01:22:00 [facility] Temperature Oral (F) 2013-12-07 01:22:00 98.4 F [facility] [place] Respitory Rate 2013-12-07 01:22:00 [facility] [place] Heart Rate 2013-12-07 01:22:00 [facility] Diastolic (mm Hg) 2013-12-07 01:22:00 [facility] Temperature Oral (F) 2013-09-24 13:03:00 98.3 F [facility] [place] Systolic (mm Hg) 2013-09-24 13:03:00 [facility] [place] Diastolic (mm Hg) 2013-09-24 13:03:00 [facility] [place] Heart Rate 2013-09-24 13:03:00 [facility] Respitory Rate 2013-09-24 13:03:00 [facility] Heart Rate 2013-09-24 09:45:00 [facility] Temperature Oral (F) 2013-09-24 09:45:00 98.1 F [facility] Respitory Rate 2013-09-24 09:45:00 [facility] [place] Systolic (mm Hg) 2013-09-24 09:45:00 [facility] [place] Diastolic (mm Hg) 2013-09-24 09:45:00 [facility] [place] Temperature Oral (F) 2013-09-24 05:35:00 98.2 F [facility] Systolic (mm Hg) 2013-09-24 05:35:00 [facility] Respitory Rate 2013-09-24 05:35:00 [facility] [place] Heart Rate 2013-09-24 05:35:00 [facility] [place] Diastolic (mm Hg) 2013-09-24 05:35:00 [facility] [place] BMI Calculated 2013-09-18 22:44:00 [facility] [place] Height 2013-09-18 22:44:00 167.64 cm [facility] Weight 2013-09-18 22:44:00 [facility] Temperature Oral (F) 2013-09-13 08:26:00 98.1 F [facility] [place] Systolic (mm Hg) 2013-09-13 08:26:00 [facility] Diastolic (mm Hg) 2013-09-13 08:26:00 [facility] [place] Diastolic (mm Hg) 2013-09-13 05:49:00 [facility] [place] Systolic (mm Hg) 2013-09-13 05:49:00 [facility] [place] Temperature Oral (F) 2013-09-13 05:49:00 98.1 F [facility] [place] Systolic (mm Hg) 2013-09-13 04:10:00 [facility] [place] Diastolic (mm Hg) 2013-09-13 04:10:00 [facility] BMI Calculated 2013-09-12 22:26:00 [facility] Height 2013-09-12 22:26:00 167.64 cm [facility] [place] Weight 2013-09-12 22:26:00 [facility] [place] Respitory Rate 2013-09-12 22:26:00 [facility] Temperature Oral (F) 2013-09-12 22:26:00 98.2 F [facility] [place] Heart Rate 2013-09-12 22:26:00 [facility] Temperature Oral (F) 2013-09-10 12:00:00 97.9 F [facility] [place] Heart Rate 2013-09-10 12:00:00 [facility] Respitory Rate 2013-09-10 12:00:00 [facility] [place] Diastolic (mm Hg) 2013-09-10 12:00:00 [facility] Systolic (mm Hg) 2013-09-10 12:00:00 [facility] Temperature Oral (F) 2013-09-10 09:12:00 97.9 F [facility] Heart Rate 2013-09-10 09:12:00 [facility] [place] Respitory Rate 2013-09-10 09:12:00 [facility] Systolic (mm Hg) 2013-09-10 09:12:00 [facility] Diastolic (mm Hg) 2013-09-10 09:12:00 [facility] Systolic (mm Hg) 2013-09-10 05:25:00 [facility] [place] Diastolic (mm Hg) 2013-09-10 05:25:00 [facility] [place] Heart Rate 2013-09-10 05:25:00 [facility] Temperature Oral (F) 2013-09-10 05:25:00 98.2 F [facility] Respitory Rate 2013-09-10 05:25:00 [facility] Weight 2013-09-02 01:49:00 [facility] BMI Calculated 2013-09-02 01:49:00 [facility] [place] Height 2013-09-02 01:49:00 167.64 cm [facility] Temperature Oral (F) 2013-09-01 12:06:00 97.1 F [facility] [place] Diastolic (mm Hg) 2013-09-01 10:00:00 [facility] [place] Systolic (mm Hg) 2013-09-01 10:00:00 [facility] [place] Respitory Rate 2013-09-01 10:00:00 [facility] Heart Rate 2013-09-01 10:00:00 [facility] Temperature Oral (F) 2013-09-01 10:00:00 97.2 F [facility] Respitory Rate 2013-09-01 08:00:00 [facility] [place] Systolic (mm Hg) 2013-09-01 08:00:00 [facility] [place] Diastolic (mm Hg) 2013-09-01 08:00:00 [facility] [place] Heart Rate 2013-09-01 08:00:00 [facility] Systolic (mm Hg) 2013-09-01 06:00:00 [facility] [place] Diastolic (mm Hg) 2013-09-01 06:00:00 [facility] Respitory Rate 2013-09-01 06:00:00 [facility] [place] Heart Rate 2013-09-01 06:00:00 [facility] [place] Temperature Oral (F) 2013-09-01 04:30:00 97.6 F [facility] Weight 2013-09-01 04:30:00 [facility] [place] Systolic (mm Hg) 2013-06-10 14:00:00 [facility] [place] Diastolic (mm Hg) 2013-06-10 14:00:00 [facility] Temperature Oral (F) 2013-06-10 14:00:00 98.4 F [facility] Respitory Rate 2013-06-10 14:00:00 [facility] [place] Heart Rate 2013-06-10 14:00:00 [facility] Respitory Rate 2013-06-10 12:51:00 [facility] [place] Diastolic (mm Hg) 2013-06-10 10:09:00 [facility] Temperature Oral (F) 2013-06-10 10:09:00 98.0 F [facility] Systolic (mm Hg) 2013-06-10 10:09:00 [facility] [place] Heart Rate 2013-06-10 10:09:00 [facility] [place] Respitory Rate 2013-06-10 10:09:00 [facility] [place] Heart Rate 2013-06-10 06:32:00 [facility] [place] Temperature Oral (F) 2013-06-10 06:32:00 98.0 F [facility] [place] Systolic (mm Hg) 2013-06-10 06:32:00 [facility] Diastolic (mm Hg) 2013-06-10 06:32:00 [facility] [place] Weight 2013-06-05 20:50:00 [facility] Height 2013-06-05 20:50:00 170.18 cm [facility] Respitory Rate 2013-02-12 05:17:00 [facility] Systolic (mm Hg) 2013-02-12 05:17:00 [facility] [place] Diastolic (mm Hg) 2013-02-12 05:17:00 [facility] [place] Heart Rate 2013-02-12 05:17:00 [facility] Respitory Rate 2013-02-12 04:45:00 [facility] Systolic (mm Hg) 2013-02-12 04:45:00 [facility] [place] Diastolic (mm Hg) 2013-02-12 04:45:00 [facility] [place] Heart Rate 2013-02-12 04:45:00 [facility] [place] Systolic (mm Hg) 2013-02-12 02:10:00 [facility] Diastolic (mm Hg) 2013-02-12 02:10:00 [facility] Heart Rate 2013-02-12 02:10:00 [facility] Respitory Rate 2013-02-12 02:10:00 [facility] Weight 2013-02-12 01:51:00 [facility] Height 2013-02-12 01:51:00 170.18 cm [facility] Temperature Oral (F) 2013-02-12 01:51:00 98.8 F [facility] Weight 2012-10-19 10:16:00 [facility] Height 2012-10-19 10:16:00 170.18 cm [facility] Weight 2012-09-28 00:56:00 [facility] Height 2012-09-28 00:56:00 170.18 cm [facility] Temperature Oral (F) 2012-08-11 17:15:00 97.9 F [facility] Heart Rate 2012-08-11 17:15:00 [facility] Diastolic (mm Hg) 2012-08-11 17:15:00 [facility] [place] Respitory Rate 2012-08-11 17:15:00 [facility] Systolic (mm Hg) 2012-08-11 17:15:00 [facility] [place] Heart Rate 2012-08-11 15:36:00 [facility] Diastolic (mm Hg) 2012-08-11 15:36:00 [facility] [place] Systolic (mm Hg) 2012-08-11 15:36:00 [facility] [place] Respitory Rate 2012-08-11 15:26:00 [facility] [place] Temperature Oral (F) 2012-08-11 12:36:00 97.9 F [facility] [place] Diastolic (mm Hg) 2012-08-11 12:36:00 [facility] [place] Heart Rate 2012-08-11 12:36:00 [facility] [place] Respitory Rate 2012-08-11 12:36:00 [facility] [place] Systolic (mm Hg) 2012-08-11 12:36:00 [facility] Temperature Oral (F) 2012-08-11 09:05:00 97.6 F [facility] Weight 2012-08-06 21:08:00 [facility] Height 2012-08-06 21:08:00 167.64 cm [facility] Height 2012-08-06 20:32:00 167.64 cm [facility] Weight 2012-08-06 20:32:00 [facility] [place] Diastolic (mm Hg) 2012-07-19 22:00:00 [facility] Heart Rate 2012-07-19 22:00:00 [facility] [place] Systolic (mm Hg) 2012-07-19 22:00:00 [facility] [place] Respitory Rate 2012-07-19 22:00:00 [facility] [place] Temperature Oral (F) 2012-07-19 22:00:00 97.4 F [facility] [place] Diastolic (mm Hg) 2012-07-19 18:00:00 [facility] Systolic (mm Hg) 2012-07-19 18:00:00 [facility] Respitory Rate 2012-07-19 18:00:00 [facility] Heart Rate 2012-07-19 18:00:00 [facility] Temperature Oral (F) 2012-07-19 18:00:00 97.8 F [facility] Systolic (mm Hg) 2012-07-19 14:00:00 [facility] Respitory Rate 2012-07-19 14:00:00 [facility] [place] Temperature Oral (F) 2012-07-19 14:00:00 97.5 F [facility] [place] Diastolic (mm Hg) 2012-07-19 14:00:00 [facility] [place] Heart Rate 2012-07-19 14:00:00 [facility] Height 2012-07-18 05:05:00 167.64 cm [facility] Weight 2012-07-18 05:05:00 [facility] Weight 2012-07-18 05:01:00 [facility] Height 2012-07-18 05:01:00 167.64 cm [facility] Height 2012-07-17 20:14:00 170.18 cm [facility] Weight 2012-07-17 20:14:00 [facility] Weight 2012-07-16 02:49:00 [facility] Height 2012-07-16 02:49:00 170.18 cm [facility] Diastolic (mm Hg) 2012-07-11 21:37:00 [facility] Systolic (mm Hg) 2012-07-11 21:37:00 [facility] Respitory Rate 2012-07-11 21:37:00 [facility] [place] Heart Rate 2012-07-11 21:37:00 [facility] Temperature Oral (F) 2012-07-11 21:37:00 97.7 F [facility] Diastolic (mm Hg) 2012-07-11 13:32:00 [facility] [place] Temperature Oral (F) 2012-07-11 13:32:00 97.9 F [facility] Respitory Rate 2012-07-11 13:32:00 [facility] Systolic (mm Hg) 2012-07-11 13:32:00 [facility] Heart Rate 2012-07-11 13:32:00 [facility] Diastolic (mm Hg) 2012-07-11 10:25:00 [facility] [place] Temperature Oral (F) 2012-07-11 10:25:00 97.7 F [facility] Respitory Rate 2012-07-11 10:25:00 [facility] [place] Systolic (mm Hg) 2012-07-11 10:25:00 [facility] Heart Rate 2012-07-11 10:25:00 [facility] Height 2012-07-09 17:58:00 170.18 cm [facility] Weight 2012-07-09 17:58:00 [facility] Weight 2012-07-08 07:25:00 [facility] Height 2012-07-07 05:32:00 170.18 cm [facility] Weight 2012-07-07 05:32:00 [facility] Height 2012-05-31 13:41:00 170.18 cm [facility] Weight 2012-05-31 13:41:00 [facility] Weight 2012-04-08 20:14:00 [facility] Height 2012-04-08 20:14:00 167.64 cm [facility] Height 2012-02-16 20:44:00 170.18 cm [facility] Weight 2012-02-16 20:44:00 [facility] Height 2012-01-25 02:28:00 167.64 cm [facility] Weight 2012-01-25 02:28:00 [facility] [place] Systolic (mm Hg) 2012-01-02 15:02:00 [facility] [place] Heart Rate 2012-01-02 15:02:00 [facility] [place] Diastolic (mm Hg) 2012-01-02 15:02:00 [facility] [place] Respitory Rate 2012-01-02 14:15:00 [facility] [place] Systolic (mm Hg) 2012-01-02 14:15:00 [facility] Diastolic (mm Hg) 2012-01-02 14:15:00 [facility] Respitory Rate 2012-01-02 14:00:00 [facility] [place] Diastolic (mm Hg) 2012-01-02 14:00:00 [facility] [place] Systolic (mm Hg) 2012-01-02 14:00:00 [facility] Respitory Rate 2012-01-02 13:45:00 [facility] Heart Rate 2012-01-02 13:00:00 [facility] Temperature Oral (F) 2012-01-02 13:00:00 97.5 F [facility] Heart Rate 2012-01-02 09:00:00 [facility] Temperature Oral (F) 2012-01-02 09:00:00 95.5 F [facility] Temperature Oral (F) 2012-01-02 05:00:00 95.4 F [facility] Height 2011-12-31 22:20:00 170.18 cm [facility] Weight 2011-12-31 22:20:00 [facility] Weight 2011-12-31 03:33:00 [facility] Weight 2011-10-16 06:11:00 [facility] Height 2011-10-16 06:11:00 167.64 cm [facility] Systolic (mm Hg) 2011-10-10 17:00:00 [facility] Diastolic (mm Hg) 2011-10-10 17:00:00 [facility] [place] Temperature Oral (F) 2011-10-10 17:00:00 98.3 F [facility] Heart Rate 2011-10-10 17:00:00 [facility] Respitory Rate 2011-10-10 17:00:00 [facility] [place] Respitory Rate 2011-10-10 09:00:00 [facility] Systolic (mm Hg) 2011-10-10 09:00:00 [facility] Temperature Oral (F) 2011-10-10 09:00:00 97.6 F [facility] Heart Rate 2011-10-10 09:00:00 [facility] [place] Diastolic (mm Hg) 2011-10-10 09:00:00 [facility] Heart Rate 2011-10-10 05:00:00 [facility] Respitory Rate 2011-10-10 05:00:00 [facility] [place] Temperature Oral (F) 2011-10-10 05:00:00 98.4 F [facility] Systolic (mm Hg) 2011-10-10 05:00:00 [facility] [place] Diastolic (mm Hg) 2011-10-10 05:00:00 [facility] Height 2011-10-09 03:25:00 170.18 cm [facility] Weight 2011-10-09 03:25:00 [facility] Procedures Procedure Date / Time Performed Performing Clinician [facility] e Computed tomography of brain without radiopaque contrast 2019-09 00:00:[address] [facility] [address] of abdomen and pelvis without contrast 2019-10-09 00:00:00 [facility] X-ray of chest, two views 2019-05-19 00:00:00 GERARDO SARGENT [facility] Computed tomography of chest with contrast 2019-05-19 00:00:00 BRENNAN WILLIAMSON [facility] Biopsy of liver 2011-05-15 00:00:00 [facility] Gastric bypass operation [facility] Abdominal hysterectomy [facility] [place] Hernia repair [facility] Back fusion [facility] Internal and external hemorrhoidectomy and anal fissurectomy [facility] Cholecystectomy [facility] Foot [facility] operations [facility] H ermann Tonsil operation [facility] Edwin n Abdominal hysterectomy [facility] [place] Back fusion [facility] [place] Cholecystectomy [facility] Shaun Gastric bypass operation [facility] [place] Hernia repair [facility] [place] Internal and external hemorrhoidectomy and anal fissurectomy [facility] Shaun Hysterectomy [facility] Sha[facility] Plan of Care Planned Activity Planned Date Details Comments Source Future Scheduled Test 2019-12-14 00:00:00 INFLUENZA VACCINE [code = INFLUENZA VACCINE] Juan Carlos Woodall Future Scheduled Test 1996-12-16 00:00:00 Screening for danielle gnant neoplasm of cervix (procedure) [code = [id number]] [facility] Inst[facility] Diarrhea - Adult [facility] - Patients [facility] Encounters Start Date/Time End Date/Time Encounter Type Admission Type Attendi [facility] Care Department Encounter ID Source 2019-10-09 12:04:00 2019-10-15 10:51:00 Discharged Inpatient [address] [facility] [id number] [facility] - Patients [facility] 2019-07-25 16:32:00 2019-07-25 18:22:00 Departed Emergency Room [address] [facility] [id number] [facility] 2019-05-19 11:57:00 2019-05-19 17:33:00 Departed Emergency Room [address] [facility] Patients [facility] [id number] [facility] 2018-09-18 16:58:00 2018-09-19 01:29:00 Departed Emergency Room 1 SHY CAMPOS [facility] [id number] [facility] 2017-07-11 23:20:00 2017-07-11 23:58:00 Departed Emergency Room [facility] [id number] [facility] Patients [facility] 2017-07-09 18:43:00 2017-07-09 20:45:00 Departed Emergency Room [facility] [id number] [facility]. [facility] Patients [facility] 2016-08-05 02:41:00 2016-08-05 06:06:00 Outpatient Wei Liang [facility] [id number] 2016-07-13 03:45:00 2016-07-13 12:27:00 Outpatient Ezekiel Márquez MHSE MHSE [id number] 2016-04-29 15:29:00 2016-05-10 18:14:00 Outpatient Carlos Garza MHSE MHSE [id number] 2016-04-11 18:18:00 2016-04-12 17:16:00 Outpatient Tesfaye Verdin MHSE MHSE [id number] 2016-04-05 17:56:00 2016-04-06 03:33:00 Outpatient Yanet Smith MHSE MHSE [id number] 2016-03-02 19:21:00 2016-03-02 23:34:00 Outpatient Master Stallworth MHSE MHSE [id number] 2015-03-20 19:16:00 2015-03-20 22:46:00 Outpatient Yanet Smith MHSE MHSE [id number] 2014-09-13 21:58:00 2014-09-30 00:30:00 Outpatient Morgan Ochoa MHIE MHIE [id number] 2014-02-09 09:48:00 2014-02-09 11:25:00 Outpatient rPasad Killian MHIE MHIE [id number] 2013-12-12 07:07:00 2013 14:27:00 Outpatient Rehan Bolañosayet MHIE MHIE [id number] 2013-12-06 20:13:00 2013-12-07 02:31:00 Outpatient Antonio Riojas MHIE MHIE [id number] 2013-12-05 10:47:00 2013-12-05 23:59:00 Outpatient Miky Enayet MHIE MHIE [id number] 2013-09-18 16:56:00 2013-09-24 11:35:00 Outpatient SlavamRehanayet MHIE MHIE [id number] 2013-09-12 17:16:00 2013-09-13 03:29:00 Outpatient Antonio Hope MHIE MHIE [id number] 2013-09-01 20:06:00 2013-09-10 09:55:00 Outpatient Slavam Enayet MHIE MHIE [id number] 2013-08-31 23:27:00 2013-09-01 07:09:00 Outpatient Antonio Riojas MHIE MHIE [id number] 2013-06-06 12:16:00 2013-06-10 12:50:00 Outpatient MHIE MHIE [id number] [facility] Results Test Description Test Time Test Comments Results Result Comments Source Blood leukocytes automated count (number/volume) 2019-10-13 06:20:00 Test Item White Blood Count (test code = 6690-2) 5.64 4.8-10.8 [facility] count (number/volume)2019-10-13 06:20:00* Test Item Value Reference Range Interpretation Comments Red Blood Count (test code = 789-8) 3.27 3.6-5.1 [facility] CenterBlood hemoglobin measurement (moles/volume)2019-10-13 06:20:00* Test Item Value Reference Range Interpretation Comments Hemoglobin (test code = 36281-0) 9.5 12.0-16.0 [facility] CenterAutomated blood hematocrit (volume fraction)2019-10-13 06:20:00* Test Item Value Reference Range Interpretation Comments Hematocrit (test code = 4544-3) 30.5 34.2-44.1 [facility] CenterAutomated erythrocyte mean corpuscular kuzkwx0004-92-39 06:20:00* Test Item Value Reference Range Interpretation Comments Mean Corpuscular Volume (test code = 787-2) 93.3 81-99 [facility] CenterAutomated erythrocyte mean corpuscular hemoglobin (mass per erythrocyte)2019-10-13 06:20:00* Test Item Value Reference Range Interpretation Comments Mean Corpuscular Hemoglobin (test code = 785-6) 29.1 28-32 [facility] CenterAutomated erythrocyte mean corpuscular hemoglobin concentration measurement (mass/volume)2019-10-13 06:20:00* Test Item Value Reference Range Interpretation Comments Mean Corpuscular Hemoglobin Concent (test code = 786-4) 31.1 31-35 [facility] CenterRDW WzuNz-Sqy3889-78-31 06:20:00* Test Item Value Reference Range Interpretation Comments Red Cell Distribution Width (test code = 94012-8) 15.7 11.7 -14.4 [facility] CenterAutomated blood platelet count (count/volume)2019-10-13 06:20:00* Test Item Value Reference Range Interpretation Comments Platelet Count (test code = 777-3) 334 140-360 [facility] CenterAutomated blood segmented neutrophil count as percentage of total oecnlhvbpc1090-14-83 06:20:00* Test Item Value Reference Range Interpretation Comments Neutrophils (%) (Auto) (test code = 92359-3) 25.7 38.7-80.0 [facility] CenterAutomated blood lymphocyte count as percentage ot total solrnawfak1395-88-68 06:20:00* Test Item Value Reference Range Interpretation Comments Lymphocytes (%) (Auto) (test code = 736-9) 53.7 18.0-39.1 [facility] CenterAutomated blood monocyte count as percentage of total sxeueqeftx6928-42-45 06:20:00* Test Item Value Reference Range Interpretation Comments Monocytes (%) (Auto) (test code = 5905-5) 8.0 4.4-11.3 [facility] CenterAutomated blood eosinophil count as percentage of total vufpurkyad3809-63-55 06:20:00* Test Item Value Reference Range Interpretation Comments Eosinophils (%) (Auto) (test code = 713-8) 4.6 0.0-6.0 [facility] CenterAutomated blood basophil count as percentage of total inrqockhiw7957-89-30 06:20:00* Test Item Value Reference Range Interpretation Comments Basophils (%) (Auto) (test code = 706-2) 1.1 0.0-1.0 [facility] CenterFluoroscopic procedure less than one hour mzgdtnmv1187-59-75 06:20:00* Test Item Value Reference Range Interpretation Comments IM GRANULOCYTES % (test code = IM GRANULOCYTES %) 6.9 0.0- 1.0 [facility] CenterAutomated blood neutrophil count 2019-10-13 06:20:00* Test Item Value Reference Range Interpretation Comments Neutrophils # (Auto) (test code = 751-8) 1.5 2.1-6.9 [facility] CenterBlood lymphocytes count (number/volume) 2019-10-13 06:20:00* Test Item Value Reference Range Interpretation Comments Lymphocytes # (Auto) (test code = 82294-9) 3.0 1.0-3.2 [facility] CenterBlood monocytes automated count (number/volume)2019-10-13 06:20:00* Test Item Value Reference Range Interpretation Comments Monocytes # (Auto) (test code = 742-7) 0.5 0.2-0.8 [facility] CenterAutomated blood eosinophil count 2019-10-13 06:20:00* Test Item Value Reference Range Interpretation Comments Eosinophils # (Auto) (test code = 711-2) 0.3 0.0-0.4 [facility] CenterAutomated blood basophil count (count/volume)2019-10-13 06:20:00* Test Item Value Reference Range Interpretation Comments Basophils # (Auto) (test code = 704-7) 0.1 0.0-0.1 [facility] CenterFluoroscopic procedure less than one hour iublzbif1784-91-96 06:20:00* Test Item Value Reference Range Interpretation Comments Absolute Immature Granulocyte (auto (kwabena t code = Absolute Immature Granulocyte (auto) 0.39 0-0.1 [facility] plasma sodium measurement (moles/volume)2019-10-13 06:20:00* Test Item Value Reference Range Interpretation Comments Sodium Level (test code = 2951-2) 141 136-145 [facility]isco[facility]um or plasma potassium measurement (moles/volume)2019-10-13 06:20:00* Test Item Value Reference Range Interpretation Comments Potassium Level (test code = 2823-3) 3.4 3.5-5.1 [facility]um or plasma chloride measurement (moles/volume)2019-10-13 06:20:00* Test Item Value Reference Range Interpretation Comments Chloride Level (test code = 2075-0) 110 98-107 [facility]isco[facility]um or plasma carbon dioxide, total measurement (moles/volume)2019-10-13 06:20:00* Test Item Value Reference Range Interpretation Comments Carbon Dioxide Level (test code = 2028-9) 25 22-29 [facility]iscoerum or plasma anion npk6640-81-25 06:20:00* Test Item Value Reference Range Interpretation Comments Anion Gap (test code = 56094-3) 9.4 8-16 [facility]isco[facility]um or plasma urea nitrogen measurement (mass/volume)2019-10-13 06:20:00* Test Item Value Reference Range Interpretation Comments Blood Urea Nitrogen (test code = 3094-0) 7 7-26 [facility]um or plasma creatinine measurement (mass/volume)2019-10-13 06:20:00* Test Item Value Reference Range Interpretation Comments Creatinine (test code = 2160-0) 0.72 0.57-1.11 [facility]um or plasma urea nitrogen/creatinine mass jexhk1093-39-99 06:20:00* Test Item Value Reference Range Interpretation Comments BUN/Creatinine Ratio (test code = 3097-3) 10 6-25 [facility] CenterEstimated glomerular filtration rate (GFR) cbkdmvxrkusxf1690-51-17 06:20:00* Test Item Value Reference Range Interpretation Comments Estimat Glomerular Filtration Rate (test code = 448268381) > 60 >60 Ranges were taken from the National Kidney Disease Education Program and the [facility] Kidney Foundation literature.Reference ranges:60 or greater: Oiilyq14-12 ( for 3 consecutive months): Chronic kidney disease 15 or less: Kidney failureLamb Healthcare CenterGlucose pbjrntpopqj8389-43-27 06:20:00* Test Item Value Reference Range Interpretation Comments Glucose Level (test code = CVB3785) 76 74-118 [facility] or plasma calcium measurement (mass/volume)2019-10-13 06:20:00* Test Item Value Reference Range Interpretation Comments Calcium Level (test code = 68828-1) 8.0 8.4-10.2 [facility]isco[facility]um or plasma magnesium measurement (mass/volume)2019-10-13 06:20:00* Test Item Value Reference Range Interpretation Comments Magnesium Level (test code = 79233-2) 1.6 1.3-2.1 [facility]iscoerum or plasma total bilirubin measurement (mass/volume)2019-10-13 06:20:00* Test Item Value Reference Range Interpretation Comments Total Bilirubin (test code = 1975-2) 0.1 0.2-1.2 [facility]iscoerum or plasma conjugated bilirubin measurement (mass/volume)2019-10-13 06:20:00* Test Item Value Reference Range Interpretation Comments Direct Bilirubin (test code = 41682-3) 0.1 0.0-0.5 [facility] CenterFluoroscopic procedure less than one hour rvmiysoj4016-35-04 06:20:00* Test Item Value Reference Range Interpretation Comments Aspartate Amino Transf (AST/SGOT) (test code = Aspartate Amino Transf (AST/SGOT)) 11 5-34 [facility]iscoerum or plasma alanine aminotransferase measurement (enzymatic activity/volume)2019-10-13 06:20:00* Test Item Value Reference Range Interpretation Comments Alanine Aminotransferase (ALT/SGPT) (test code = 1742-6) 18 0-55 [facility]iscoerum or plasma protein measurement (mass/volume)2019-10-13 06:20:00* Test Item Value Reference Range Interpretation Comments Total Protein (test code = 2885-2) 4.9 6.5-8.1 [facility]iscoerum or plasma albumin measurement (mass/volume)2019-10-13 06:20:00* Test Item Value Reference Range Interpretation Comments Albumin (test code = 1751-7) 2.4 3.5-5.0 [facility]isco[facility]um or plasma alkaline phosphatase measurement (enzymatic activity/volume)2019-10-13 06:20:00* Test Item Value Reference Range Interpretation Comments Alkaline Phosphatase (test code = 6768-6) 81 40-150 [facility]iscoerum or plasma thyrotropin measurement by detection limit <= 0.005 miu/l (units/volume)2019-10-13 06:20:00* Test Item Value Reference Range Interpretation Comments Thyroid Stimulating Hormone (TSH) (test code = 62109-8) 3.026 0.350-4.940 [facility] Friscotool lactoferrin dyfoeqhdl3659-97-07 06:49:00* Test Item Value Reference Range Interpretation Comments Stool Lactoferrin (LAB) (test code = 92254-6) POSITIVE NEGATIVE Testing on stool aspirate specimens is outside hand cigar maker claims since specime n type not validated on this assay.[facility] Friscotool gastrointestinal hemoglobin cbohqdvfe0552-85-37 06:49:00* Test Item Value Reference Range Interpretation Comments Stool Occult Blood (test code = 2335-8) NEGATIVE NEGATIVE [facility]iscoerum or plasma C reactive protein measurement (mass/volume)2019-10-12 06:25:00* Test Item Value Reference Range Interpretation Comments C-Reactive Protein (test code = 1988-5) 48 0-10 Performed at: [facility] [id number] Director: Sonu Bangura MD, Phone: [phone] Healthcare CenterFluoroscopic procedure less than one hour olexhvsm1947-21-82 07:57:00* Test Item Value Reference Range Interpretation Comments Differential Total Cells Counted (test code = Differrehan tial Total Cells Counted) 100 [facility] leukocytes 2019-10-11 07:57:00* Test Item Value Reference Range Interpretation Comments Neutrophils % (Manual) (test code = 42248-2) 53 40-74 [facility] blood lymphocytes/100 leukocytes 2019-10-11 07:57:00* Test Item Value Reference Range Interpretation Comments Lymphocytes % (Manual) (test code = 737-7) 35 19-48 [facility] blood monocytes/100 leukocytes 2019-10-11 07:57:00* Test Item Value Reference Range Interpretation Comments Monocytes % (Manual) (test code = 744-3) 7 3.4-9.0 [facility] blood myelocytes/100 leukocytes 2019-10-11 07:57:00* Test Item Value Reference Range Interpretation Comments Myelocytes % (test code = 749-2) 5 0-0 [facility] CenterBlood platelets count by estimate (number/volume)2019-10-11 07:57:00* Test Item Value Reference Range Interpretation Comments Platelet Estimate (test code = 30856-4) ADEQUATE [facility] CenterPlatelet thplirplyz8033-93-84 07:57:00* Test Item Value Reference Range Interpretation Comments Platelet Morphology Comment (test code = 53194-8) NORMAL [facility] CenterRBC qwltihayez7224-42-25 07:57:00* Test Item Value Reference Range Interpretation Comments Red Cell Morphology Comment (test code = 6742-1) NORMAL [facility]um or plasma creatine kinase measurement (enzymatic activity/volume)2019-10-11 07:57:00* Test Item Value Reference Range Interpretation Comments Creatine Kinase (test code = 2157-6) 805 29-168 [facility] CenterManual blood band neutrophils form/100 wymcqghxey2282-52-96 05:30:00* Test Item Value Reference Range Interpretation Comments Band Neutrophils % (test code = 764-1) 8 [facility] CenterPlasma globulin measurement (mass/volume) 2019-10-10 05:30:00* Test Item Value Reference Range Interpretation Comments Globulin (test code = 99343-6) 3.3 2.3-3.5 [facility]isco[facility]um or plasma albumin/globulin mass izfou8314-09-32 05:30:00* Test Item Value Reference Range Interpretation Comments Albumin/Globulin Ratio (test code = 1759-0) 0.8 0.8-2.0 [facility]iscoerum or plasma creatine kinase MB measurement (mass/volume)2019-10-10 05:30:00* Test Item Value Reference Range Interpretation Comments Creatine Kinase MB (test code = 15794-9) 14.80 0-5.0 [facility] CenterTroponin I measurement by highly sensitive enzyme lvdavdlbkdt7416-98-71 05:30:00* Test Item Value Reference Range Interpretation Comments Troponin I (test code = 65607-5) < 0.001 0-0.300 [facility] CenterClostridium difficile A and B toxin assay 2019-10-09 19:55:00* Test Item Value Reference Range Interpretation Comments Clostridium Difficile Toxin A & B (test code = 840471660) NEGATIVE NEGATIVE Testing on stool aspirate specimens is outside hand cigar maker claims since specime n type not validated on this assay.[facility] Procalcitonin (PCT) ljkkz9650-90-50 14:45:00* Test Item Value Reference Range Interpretation Comments Procalcitonin (test code = 651278870) 0.57 0.00-0.08 A procalcitonin (PCT) level above 2.0 ng/mL on the firstday of ICU admission is associated with a high risk forprogression to severe sepsis and/or septic shock. A PCT level below 0.5 ng/mL on the first day of ICUadmission is associated with a low risk for progressionto severe sepsis and/or septic shock.Note: Concentrati ons <0.5 ng/mL do not exclude aninfection, on account of localized infections (withoutsystemic signs) which can be associated with such lowconcentrations, or a systemic infection in its initialstages (<6 hours).Furthermore, increased procalcitonin can occur withoutinfection. PCT concentrations between 0.5 and 2.0 ng/mLshould be interpreted taking into account the patient'shistory. It is recommended to retest PCT within 6-24 hoursif any concentrations <2 ng/mL are obtained.Performed at: - [facility] [id number] Director: Sonu Bangura MD, Phone: [phone] Healthcare CenterFluoroscopic procedure less than one hour xnhetkzq7327-41-26 12:48:00* Test Item Value Reference Range Interpretation Comments Coronavirus (PCR) (test code = Coronavirus (PCR)) NOT DETECTED NOTD ETECTED SARS-COV-2 (COVID19), HIGHRISK, RT-PCRNegative results do not preclude SARS-CoV- 2 infection and should not be used as the sole basis for patient management deci sions. Negative results must be combined with clinical observations, patient his tory, and epidemiological information. Optimum specimen types and timing for pea k viral levels during infections caused by SARS-CoV-2 have not been determined. Collection of multiple specimens ot types of specimens may be necessary to detec t virus. Improper specimen collection and handling, sequence variability under p rimers/probes, or organism present below the limit of detection may lead to fals e negative results. Positive and negative predictive values of testing are highl y dependent on prevalance. False negative test results are more likely when prev alence is high.The expected result is negative (not detected).The SARS-CoV-2 kwabena t is intended for the qualitative detection of nucleic acid from SARS-CoV-2 in n asopharyngeal and oropharyngeal swab samples from patients who meet COVID-19 cli nical and or epidemiological criteria. For lower respiratory tract specimens, th e assay is submitted for authoriztion by FDA under an Emergency Use Authorizatio n (EUA). Testing methodology is real time RT-PCR. If received as separate collec tion devices, nasopharygeal and oropharyngeal specimens are combined for analysi s. Additional specimens may be split to a separate accession for analysi and rep orting as this test includes a single unit of service.Test results must be corre lated with clinical presentation and evaluated in the context of other laborator y and epidemiologic data. Test performance can be affected because the epidemiol ogy and clinical spectrum of infection caused by SARS-CoV-2 is not fully known. For example, the optimum types of specimens to collect and when during the cours e of infection these specimens are most likely to contain detectable viral RNA m ay not be known.This test has not been Food and Drug Administration (FDA) cleare d or approved and has been authorized by FDA under an Emergency Use Authorizatio n (EUA). The test is only authorized for the duration of the declaration that ci rcumstances exist justifying the authorization of emergency use of in vitro diag nostic tests for detection and/or diagnosis of SARS-CoV-2 under section 564(b) o f the Act, 21 U.S.C. section 360bbb-3(b)(1), unless the authorization is termina vinny or revoked sooner. [facility] are certified under the C linical Laboratory Improvement Amendments of 1988 (CLIA), 42 U.S.C. section 263a , to perform high complexity tests.Testing performed by [facility] [id number] [place], [place] [phone] Director: Tono Gan M.D.CLIA # [id number] [facility] CenterCT ABDOMEN/PELVIS UR4099-45-79 11:08:00 [place] [address] Patient Name: LOGAN MCCRACKEN MR #: [id number] : 1975 Age/Sex: 43/F Req #: [id number] [facility] Physician: Ordered by: DARCY CASTILLO Report #: [id number] Location: ER Room/Bed: Procedure: [id number] CT/CT ABD OMEN/PELVIS WO Exam Date: 10/09/19 Exam Time: 1020 REPORT STATUS: Signed EXAM: CT Ab domen and Pelvis WITHOUT intravenous contrast INDICATION: Abdominal pain, diarrhea, nausea COMPARISON: None. TECHNIQUE: Abdomen and pelvis were scanned utilizing a multidetector helical scanner from the lung base to the p ubic symphysis without administration of IV contrast. Coronal and sagittal ref ormations were obtained. IV CONTRAST: None ORAL CONTRAST: [...] mass lesions. PELVIC ORGANS/BLADDER: Status post hysterectomy. P ERITONEUM / RETROPERITONEUM: No free air or fluid. LYMPH NODES: No lymphadenop athy. VESSELS: Unremarkable. GI TRACT: No abnormal bowel thickening. No b owel obstruction. Normal appendix. BONES AND SOFT TISSUES: Left lower quadr ant implanted pain pump. No acute osseous injury. Postoperative findings of po sterior decompression and fusion at L4-S1. IMPRESSION: No acute findin gs in the abdomen or pelvis. Signed by: Stew Mitchell MD on 10/09/2019 11:19 A M Dictated By: STEW MITCHELL MD 18 Transcribed By: ANUSHKA on 10/09/199 COPY TO: Lita CASTILLO Urine color fibaepbzwnlwd7712-85-71 10:35:00* Test Item Value Reference Range Interpretation Comments Urine Color (test code = 5778-6) YELLOW YELLOW [facility] CenterUrine vcnskml6196-87-53 10:35:00* Test Item Value Reference Range Interpretation Comments Urine Clarity (test code = 29000-8) CLEAR CLEAR [facility]iscopecific gravity of Urine by Test strip 2019-10-09 10:35:00* Test Item Value Reference Range Interpretation Comments Urine Specific [place] (test code = 5811-5) 1.020 1.010-1.02 5 [facility] CenterUrine pH measurement by automated test kqgzx5850-15-84 10:35:00* Test Item Value Reference Range Interpretation Comments Urine pH (test code = 03093-9) 6.5 5-7 [facility] CenterUrine leukocyte esterase detection by oxbihsmd6912-93-87 10:35:00* Test Item Value Reference Range Interpretation Comments Urine Leukocyte Esterase (test code = 5799-2) NEGATIVE NEGATIVE [facility] CenterUrine nitrite ilwlqyavy8048-42-71 10:35:00* Test Item Value Reference Range Interpretation Comments Urine Nitrite (test code = 86473-4) NEGATIVE NEGATIVE [facility] CenterUrine protein measurement by test strip (mass/volume)2019-10-09 10:35:00* Test Item Value Reference Range Interpretation Comments Urine Protein (test code = 5804-0) 1+ NEGATIVE [facility] CenterUrine glucose zcabrgvjx4688-19-90 10:35:00* Test Item Value Reference Range Interpretation Comments Urine Glucose (UA) (test code = 2349-9) NEGATIVE NEGATIVE [facility] CenterUrine ketones detection by automated test xjmmz7323-03-08 10:35:00* Test Item Value Reference Range Interpretation Comments Urine Ketones (test code = 15163-0) 2+ NEGATIVE [facility] CenterUrine urobilinogen measurement by test strip (mass/volume)2019-10-09 10:35:00* Test Item Value Reference Range Interpretation Comments Urine Urobilinogen (test code = 58285-4) 0.2 0.2-1 [facility] CenterUrine total bilirubin measurement (mass/volume)2019-10-09 10:35:00* Test Item Value Reference Range Interpretation Comments Urine Bilirubin (test code = 1978-6) SMALL NEGATIVE [facility] CenterUrine erythrocytes yoisdqfpk0569-94-73 10:35:00* Test Item Value Reference Range Interpretation Comments Urine Blood (test code = 59212-9) MODERATE NEGATIVE [facility] CenterAutomated urine sediment leukocyte count by microscopy (number/high power field)2019-10-09 10:35:00* Test Item Value Reference Range Interpretation Comments Urine WBC (test code = 5821-4) 6-10 0-5 [facility] CenterErythrocytes detection in urine sediment by light vmkruxydae2473-74-95 10:35:00* Test Item Value Reference Range Interpretation Comments Urine RBC (test code = 81760-7) 11-20 0-5 [facility] CenterBacteria detection in urine sediment by light dozkkxaiyp2768-92-82 10:35:00* Test Item Value Reference Range Interpretation Comments Urine Bacteria (test code = 81305-9) MODERATE NONE [facility] CenterEpithelial cells detection in urine sediment by light cqllkzlves2699-22-89 10:35:00* Test Item Value Reference Range Interpretation Comments Urine Epithelial Cells (test code = 68471-3) MODERATE NONE [facility] CenterBacterial urine xoleidh8575-47-81 10:35:00* Test Item Value Reference Range Interpretation Comments Urine Culture (test code = 630-4) ESCHERICHIA COLI [facility] CenterCHEST SINGLE (PORTABLE)2019-10-09 09:51:00 [place] [address] Patient Name: LOGAN MCCRACKEN MR #: [id number] : 1975 Age/Sex: 43/F Req #: [id number] Adm Physician: Ordered by: DARCY CASTILLO Report #: [id number] Location: ER Room/Bed: Procedure: [id number] DX/CHEST SINGLE (PORTABLE) Exam Date: 10/09/19 Exam Time: 090 0 REPORT STATUS: Signed EXAMINAT ION: CHEST SINGLE (PORTABLE) INDICATION: Fever COMPARISON: Chest CT 05/19/2019, chest radiograph 05/19/2019 FINDINGS: LINES/TUBES:EKG leads overlie the chest. LUNGS:The lungs are well-inflated. No focal consol idation or pulmonary edema. PLEURA:No pleural effusion or pneumothorax. MEDIASTINUM:The cardiomediastinal silhouette appears normal in size and shape. BONES/SOFT TISSUES:No acute osseous injury. ABDOMEN:No free air under the diaphragm. IMPRESSION: No focal pneumonia or pulmonary edema. Signed by: Stew Mitchell MD on 10/09/2019 9:53 AM Dictated By: STEW MITCHELL MD 2 Transcribed By: Malik BENSON on 10/09/19952 COPY TO: DARCY CASTILLO CT BRAIN WO 2019-10-09 09:50:00 [place] [address] Patient Name: LOGAN MCCRACKEN MR #: [id number] : 1975 Age/Sex: 43/F Req #: [id number] Adm Physician: Ordered by: DARCY CASTILLO Report #: [id number] Location: ER Room/Bed: Procedure: [id number] CT/CT BRA IN WO Exam Date: 10/09/19 Exam Time: 0900 REPORT STATUS: Signed CT BRAIN WO HIS TORY: Headache COMPARISON: Head CT 03/06/2016 TECHNIQUE: Noncontra st axial scans were obtained from skull base to the vertex. Coronal and sagit cristi reconstructions obtained from the axial data. One or more of the followin g dose reduction techniques were used: Automated exposure control, adjustment of the mA and/or kV according to patient size, and/or utilization of iterative reconstruction technique. DISCUSSION: Scalp/Skull: Unremarkable. Br ain sulci: Appropriate for patient's age. Ventricles: Normal in size and confi guration. No hydrocephalus. Extra-axial spaces: No masses or fluid collection s. Parenchyma: No abnormal densities. No mass, hemorrhage, or lar ge vascular territory acute infarct. Dural sinuses: No abnormal densities. Sellar/Suprasellar region: Empty sella. Skull base: Intact. Incidental fi ndings: None. IMPRESSION: 1. No acute intracranial abnormalities. 2 . Nonspecific empty sella. Signed by: Dr. Yifan Mensah M.D. on 0 9:55 AM Dictated By: YIFAN MENSAH MD 4 Transcribed By: ANUSHKA on 10/09/19954 COPY TO: DARCY CASTILLO Fluoroscopic procedure less than one hour jnvvfnpy9200-76-74 08:49:00* Test Item Value Reference Range Interpretation Comments Lactic Acid Level (test code = Lactic Acid Level) 1.1 0.5- 2.0 [facility] lipase measurement (enzymatic activity/volume)2019-10-09 08:49:00* Test Item Value Reference Range Interpretation Comments Lipase (test code = 3040-3) 12 8-78 [facility] or plasma choriogonadotropin ( test) dwwsjrlpc3860-62-55 08:49:00* Test Item Value Reference Range Interpretation Comments Human Chorionic Gonadotropin, Qual (test code = 2118-8) NEGATIVE NEGATIVE [facility] nydogiz4799-04-79 08:49:00* Test Item Value Reference Range Interpretation Comments Blood Culture (test code = 70241666) NO GROWTH AFTER 5 DAYS, FINAL REPORT [facility]W RT - [id number] 17:39:00 [place] [address] Patient Name: LOGAN MCCRACKEN MR #: [id number] : 1975 Age/Sex: 43/F Req #: [id number] Adm Physician: Ordered by: SIMA BAUTISTA MD Report #: [id number] Location: [facility] Room/Bed: Procedure: [id number] H OPD/SHOULDER 2+VW RT - HOPD Exam Date: 07/25/19 Exam Time: 1725 REPORT STATUS: Signed EXAMINATION: SHOULDER 2+VW RT - HOPD INDICATION: Shoulder pain COMPARISON: None FINDINGS: No acute fracture or dislocation. Alig nment appears anatomic. No substantial degenerative change. Partially visualiz ed right lung appears clear. IMPRESSION: No acute osseous injury. S igned by: Stew Mitchell MD on 07/25/2019 5:41 PM Dictated By: STEW MITCHELL MD 40 Transcribed By: ALVARO GEORGE on 07/25/191740 COPY TO: SIMA BAUTISTA MD CXR 2 VIEW - [id number] 17:38:00 [address], [place] [address] Patient Name: LOGAN MCCRACKEN MR #: [id number] : 1975 Age/Sex: 43/F Req #: [id number] Adm Physician: Ordered by: SIMA BAUTISTA MD Report #: [id number] Location: [facility] Room/Bed: Procedure: [id number] H OPD/CXR 2 VIEW - HOPD Exam Date: 07/25/19 Exam Time: 1725 REPORT STATUS: Signed EXAM INATION: CXR 2 VIEW - HOPD INDICATION: Chest pain COMPARISON: Non e FINDINGS: LINES/TUBES:None LUNGS:The lungs are well-inflat ed. No focal consolidation or pulmonary edema. PLEURA:No pleural effusion o r pneumothorax. MEDIASTINUM:The cardiomediastinal silhouette appears normal in size and shape. BONES/SOFT TISSUES:No acute osseous injury. ABDOME N:No free air under the diaphragm. Status post cholecystectomy. IMPRESSI ON: No focal pneumonia or pulmonary edema. Signed by: Stew Mitchell MD on 07/25/2019 5:39 PM Dictated By: STEW MITCHELL MD 38 Transcribed By: ANUSHKA on 07/25/191738 CO PY TO: SIMA BAUTISTA MD Blood Ozqjbnj0547-45-85 14:54:00* Test Item Value Reference Range Interpretation Comments Blood Culture (test code = 91000449) NO GROWTH AFTER 5 DAYS, FINAL REPORT [facility] [id number] 17:11:00* Test Item Value Reference Range Interpretation Comments Urine WBC (test code = 5821-4) 0-5 0-5 [facility] [id number] 17:11:00* Test Item Value Reference Range Interpretation Comments Urine RBC (test code = 10468-3) 0-5 0-5 [facility] Pwkimjma7553-41-25 17:11:00* Test Item Value Reference Range Interpretation Comments Urine Bacteria (test code = 89618-6) FEW NONE [facility] Epithelial Gcqos8702-22-92 17:11:00 * Test Item Value Reference Range Interpretation Comments Urine Epithelial Cells (test code = 91535-8) FEW NONE [facility] [id number] 17:11:00* Test Item Value Reference Range Interpretation Comments Urine WBC (test code = 5821-4) 0-5 0-5 [facility] SRK0536-66-31 17:11:00* Test Item Value Reference Range Interpretation Comments Urine RBC (test code = 05316-1) 0-5 0-5 [facility] Qjpiplie7419-94-45 17:11:00* Test Item Value Reference Range Interpretation Comments Urine Bacteria (test code = 59622-4) FEW NONE [facility] Epithelial Gajtu5550-62-36 17:11:00 * Test Item Value Reference Range Interpretation Comments Urine Epithelial Cells (test code = 09702-2) FEW NONE [facility] Brkv0886-12-41 17:07:00* Test Item Value Reference Range Interpretation Comments Urine Test (test code = 2106-3) NEGATIVE NEGATIVE [facility] Gfxj8005-11-51 17:07:00* Test Item Value Reference Range Interpretation Comments Urine Test (test code = 2106-3) NEGATIVE NEGATIVE [facility] Pgfoy0237-82-91 17:06:00* Test Item Value Reference Range Interpretation Comments Urine Color (test code = 5778-6) YELLOW YELLOW [facility] Cckhrio5556-36-50 17:06:00* Test Item Value Reference Range Interpretation Comments Urine Clarity (test code = 99347-9) SL CLOUDY CLEAR [facility] CenterU[facility] Specific Xeugqrr5056-83-91 17:06:00 * Test Item Value Reference Range Interpretation Comments Urine Specific [place] (test code = 5811-5) 1.020 1.010-1.02 5 [facility] nP7354-11-76 17:06:00* Test Item Value Reference Range Interpretation Comments Urine pH (test code = 68480-4) 6 5-7 [facility] Leukocyte Rpmnudkm0876-68-77 17:06:00* Test Item Value Reference Range Interpretation Comments Urine Leukocyte Esterase (test code = 30940-1) NEGATIVE NEGATIV E [facility] Zshrflk9474-55-97 17:06:00* Test Item Value Reference Range Interpretation Comments Urine Nitrite (test code = 45313-2) NEGATIVE NEGATIVE [facility] Obtibhc4616-03-69 17:06:00* Test Item Value Reference Range Interpretation Comments Urine Protein (test code = 08411-7) NEGATIVE NEGATIVE [facility] Glucose (UA)2019-05-19 17:06:00* Test Item Value Reference Range Interpretation Comments Urine Glucose (UA) (test code = 80799-1) NEGATIVE NEGATIVE [facility] Fxtusrg9296-17-95 17:06:00* Test Item Value Reference Range Interpretation Comments Urine Ketones (test code = 63547-2) NEGATIVE NEGATIVE [facility] Kuddjnfsvuts4383-07-87 17:06:00* Test Item Value Reference Range Interpretation Comments Urine Urobilinogen (test code = 90795-6) 0.2 0.2-1 [facility] Imizexode8529-95-29 17:06:00* Test Item Value Reference Range Interpretation Comments Urine Bilirubin (test code = 1977-8) NEGATIVE NEGATIVE [facility] Jxrpl7400-36-49 17:06:00* Test Item Value Reference Range Interpretation Comments Urine Blood (test code = 49013-4) NEGATIVE NEGATIVE [facility] Nipzo4627-52-71 17:06:00* Test Item Value Reference Range Interpretation Comments Urine Color (test code = 5778-6) YELLOW YELLOW [facility] Kwpdsum9526-57-48 17:06:00* Test Item Value Reference Range Interpretation Comments Urine Clarity (test code = 11007-1) SL CLOUDY CLEAR [facility] CenterU[facility] Specific Mtmjohi1883-28-33 17:06:00 * Test Item Value Reference Range Interpretation Comments Urine Specific [place] (test code = 5811-5) 1.020 1.010-1.02 5 [facility] hV8907-99-40 17:06:00* Test Item Value Reference Range Interpretation Comments Urine pH (test code = 87965-8) 6 5-7 [facility] Leukocyte Mhnxitbm6511-70-23 17:06:00* Test Item Value Reference Range Interpretation Comments Urine Leukocyte Esterase (test code = 81592-0) NEGATIVE NEGATIV E [facility] Ailozyt5542-10-46 17:06:00* Test Item Value Reference Range Interpretation Comments Urine Nitrite (test code = 16185-3) NEGATIVE NEGATIVE [facility] Zzrfrtj6701-73-10 17:06:00* Test Item Value Reference Range Interpretation Comments Urine Protein (test code = 78142-9) NEGATIVE NEGATIVE [facility] Glucose (UA)2019-05-19 17:06:00* Test Item Value Reference Range Interpretation Comments Urine Glucose (UA) (test code = 41352-3) NEGATIVE NEGATIVE [facility] Dmnhesb0080-51-60 17:06:00* Test Item Value Reference Range Interpretation Comments Urine Ketones (test code = 23775-6) NEGATIVE NEGATIVE [facility] Gdoezxnwyvld8721-07-83 17:06:00* Test Item Value Reference Range Interpretation Comments Urine Urobilinogen (test code = 77469-7) 0.2 0.2-1 [facility] Hvqsqeziz7515-31-28 17:06:00* Test Item Value Reference Range Interpretation Comments Urine Bilirubin (test code = 1977-8) NEGATIVE NEGATIVE [facility] Center[facility] Emorn4614-06-66 17:06:00* Test Item Value Reference Range Interpretation Comments Urine Blood (test code = 21811-1) NEGATIVE NEGATIVE [facility] CenterInfluenza Virus Types A,B Antigen 2019-05-19 16:33:00* Test Item Value Reference Range Interpretation Comments Influenza Virus Types A,B Antigen (test code = 44197-9) NEGATIVE NEGATIVE [facility] CenterInfluenza Virus Types A,B Antigen 2019-05-19 16:33:00* Test Item Value Reference Range Interpretation Comments Influenza Virus Types A,B Antigen (test code = 73824-3) NEGATIVE NEGATIVE [facility] CenterCT CHEST Q8358-74-38 16:14:00 [facility] [address] [place] [address] Patient Name: LOGAN MCCRACKEN MR #: [id number] : 1975 Age/Sex: 43/F Req #: [id number] Adm Physician: Ordered by: BRENNAN SOUSA DO Report #: [id number] Location: ER Room/Bed: Procedure: [id number] CT/CT CHEST W Exam Date: 05/19/19 Exam Time: 1556 REPORT STATUS: Signed EXAM: [facility] WITH contrast 05/19/2019 3:11 PM INDICATION: cough, [...] for developing pneumonia. Signed by: Dr. Bryant Savage MD on 05/19/2019 4:19 PM Dictated By: BRYANT SAVAGE MD 1619 Transcribed By: DOMINIC OWENS on 05/19/19 1619 COPY TO: BRENNAN SOUSA DO Differential Total Cells Leglizh1266-70-15 15:55:00* Test Item Value Reference Range Interpretation Comments Differential Total Cells Counted (test code = Differen tial Total Cells Counted) 100 [facility] CenterNeutrophils % (Manual)2019-05-19 15:55:00 * Test Item Value Reference Range Interpretation Comments Neutrophils % (Manual) (test code = 03625-5) 62 40-74 [facility] CenterBand Neutrophils %2019-05-19 15:55:00* Test Item Value Reference Range Interpretation Comments Band Neutrophils % (test code = 764-1) 5 [facility] CenterLymphocytes % (Manual)2019-05-19 15:55:00 * Test Item Value Reference Range Interpretation Comments Lymphocytes % (Manual) (test code = 737-7) 20 19-48 [facility] CenterMonocytes % (Manual)2019-05-19 15:55:00* Test Item Value Reference Range Interpretation Comments Monocytes % (Manual) (test code = 744-3) 8 3.4-9.0 [facility] CenterEosinophils % (Manual)2019-05-19 15:55:00 * Test Item Value Reference Range Interpretation Comments Eosinophils % (Manual) (test code = 714-6) 5 0-7 [facility] CenterPlatelet Rpvuapul3784-83-10 15:55:00* Test Item Value Reference Range Interpretation Comments Platelet Estimate (test code = 65847-3) ADEQUATE [facility] CenterPlatelet Morphology Cliiziq1896-58-19 15:55:00* Test Item Value Reference Range Interpretation Comments Platelet Morphology Comment (test code = 65560-9) NORMAL [facility] CenterRed Cell Morphology Dlueliu7540-17-42 15:55:00* Test Item Value Reference Range Interpretation Comments Red Cell Morphology Comment (test code = 6742-1) NORMAL [facility] CenterDifferential Total Cells Counted 2019-05-19 15:55:00* Test Item Value Reference Range Interpretation Comments Differential Total Cells Counted (test code = Differrehan tial Total Cells Counted) 100 [facility] CenterNeutrophils % (Manual)2019-05-19 15:55:00 * Test Item Value Reference Range Interpretation Comments Neutrophils % (Manual) (test code = 95081-8) 62 40-74 [facility] CenterBand Neutrophils %2019-05-19 15:55:00* Test Item Value Reference Range Interpretation Comments Band Neutrophils % (test code = 764-1) 5 [facility] CenterLymphocytes % (Manual)2019-05-19 15:55:00 * Test Item Value Reference Range Interpretation Comments Lymphocytes % (Manual) (test code = 737-7) 20 19-48 [facility] CenterMonocytes % (Manual)2019-05-19 15:55:00* Test Item Value Reference Range Interpretation Comments Monocytes % (Manual) (test code = 744-3) 8 3.4-9.0 [facility] CenterEosinophils % (Manual)2019-05-19 15:55:00 * Test Item Value Reference Range Interpretation Comments Eosinophils % (Manual) (test code = 714-6) 5 0-7 [facility] CenterPlatelet Zsggaqwx1476-46-23 15:55:00* Test Item Value Reference Range Interpretation Comments Platelet Estimate (test code = 33294-1) ADEQUATE [facility] CenterPlatelet Morphology Xqntkcn2185-23-88 15:55:00* Test Item Value Reference Range Interpretation Comments Platelet Morphology Comment (test code = 72317-2) NORMAL [facility] CenterRed Cell Morphology Sutstuy0077-34-85 15:55:00* Test Item Value Reference Range Interpretation Comments Red Cell Morphology Comment (test code = 6742-1) NORMAL [facility] CenterUrine human chorionic gonadotropin (hCG) uduldbphm0716-86-22 15:29:00* Test Item Value Reference Range Interpretation Comments Urine Test (test code = 2106-3) NEGATIVE NEGATIVE [facility] CenterLactic Acid Qoxqy3779-48-20 15:19:00* Test Item Value Reference Range Interpretation Comments Lactic Acid Level (test code = Lactic Acid Level) 0.8 0.5- 2.0 [facility] CenterLactic Acid Odfhi1335-40-73 15:19:00* Test Item Value Reference Range Interpretation Comments Lactic Acid Level (test code = Lactic Acid Level) 0.8 0.5- 2.0 [facility] CenterActivated Partial Thromboplast Time 2019-05-19 15:12:00* Test Item Value Reference Range Interpretation Comments Activated Partial Thromboplast Time (test code = 31209-3) 33.0 23.8-35.5 [facility] CenterActivated Partial Thromboplast Time 2019-05-19 15:12:00* Test Item Value Reference Range Interpretation Comments Activated Partial Thromboplast Time (test code = 78745-8) 33.0 23.8-35.5 [facility] CenterWhite Blood Huokz8333-68-63 15:10:00* Test Item Value Reference Range Interpretation Comments White Blood Count (test code = 6690-2) 9.16 4.8-10.8 [facility] CenterRed Blood Aegqc7681-50-77 15:10:00* Test Item Value Reference Range Interpretation Comments Red Blood Count (test code = 789-8) 3.59 3.6-5.1 L [facility] CenterHemoglobin2020-01-05 15:10:00* Test Item Value Reference Range Interpretation Comments Hemoglobin (test code = 62631-5) 11.1 12.0-16.0 L [facility] CenterHematocrit2020-01-05 15:10:00* Test Item Value Reference Range Interpretation Comments Hematocrit (test code = 4544-3) 34.9 34.2-44.1 [facility] CenterMean Corpuscular Rmbzgp6548-69-33 15:10:00* Test Item Value Reference Range Interpretation Comments Mean Corpuscular Volume (test code = 787-2) 97.2 81-99 [facility] CenterMean Corpuscular Arwtsrusxl0255-12-50 15:10:00* Test Item Value Reference Range Interpretation Comments Mean Corpuscular Hemoglobin (test code = 785-6) 30.9 28-32 [facility] CenterMean Corpuscular Hemoglobin Concent 2019-05-19 15:10:00* Test Item Value Reference Range Interpretation Comments Mean Corpuscular Hemoglobin Concent (test code = 786-4) 31.8 31-35 [facility] CenterRed Cell Distribution Xeqjr0295-53-37 15:10:00* Test Item Value Reference Range Interpretation Comments Red Cell Distribution Width (test code = 82234-5) 13.8 11.7 -14.4 [facility] CenterPlatelet Dnmax0064-93-73 15:10:00* Test Item Value Reference Range Interpretation Comments Platelet Count (test code = 777-3) 265 140-360 [facility] CenterNeutrophils (%) (Auto)2019-05-19 15:10:00 * Test Item Value Reference Range Interpretation Comments Neutrophils (%) (Auto) (test code = 41399-7) 68.1 38.7-80.0 [facility] CenterLymphocytes (%) (Auto)2019-05-19 15:10:00 * Test Item Value Reference Range Interpretation Comments Lymphocytes (%) (Auto) (test code = 736-9) 20.0 18.0-39.1 [facility] CenterMonocytes (%) (Auto)2019-05-19 15:10:00* Test Item Value Reference Range Interpretation Comments Monocytes (%) (Auto) (test code = 5905-5) 7.4 4.4-11.3 [facility] CenterEosinophils (%) (Auto)2019-05-19 15:10:00 * Test Item Value Reference Range Interpretation Comments Eosinophils (%) (Auto) (test code = 713-8) 4.0 0.0-6.0 [facility] CenterBasophils (%) (Auto)2019-05-19 15:10:00* Test Item Value Reference Range Interpretation Comments Basophils (%) (Auto) (test code = 706-2) 0.2 0.0-1.0 [facility] CenterIM GRANULOCYTES %2019-05-19 15:10:00* Test Item Value Reference Range Interpretation Comments IM GRANULOCYTES % (test code = IM GRANULOCYTES %) 0.3 0.0- 1.0 [facility] CenterNeutrophils # (Auto)2019-05-19 15:10:00* Test Item Value Reference Range Interpretation Comments Neutrophils # (Auto) (test code = 751-8) 6.2 2.1-6.9 [facility] CenterLymphocytes # (Auto)2019-05-19 15:10:00* Test Item Value Reference Range Interpretation Comments Lymphocytes # (Auto) (test code = 96403-3) 1.8 1.0-3.2 [facility] CenterMonocytes # (Auto)2019-05-19 15:10:00* Test Item Value Reference Range Interpretation Comments Monocytes # (Auto) (test code = 742-7) 0.7 0.2-0.8 [facility] CenterEosinophils # (Auto)2019-05-19 15:10:00* Test Item Value Reference Range Interpretation Comments Eosinophils # (Auto) (test code = 711-2) 0.4 0.0-0.4 [facility] CenterBasophils # (Auto)2019-05-19 15:10:00* Test Item Value Reference Range Interpretation Comments Basophils # (Auto) (test code = 704-7) 0.0 0.0-0.1 [facility] CenterAbsolute Immature Granulocyte (auto 2019-05-19 15:10:00* Test Item Value Reference Range Interpretation Comments Absolute Immature Granulocyte (auto (kwabena t code = Absolute Immature Granulocyte (auto) 0.03 0-0.1 [facility] CenterProthrombin Phlt2859-49-30 15:10:00* Test Item Value Reference Range Interpretation Comments Prothrombin Time (test code = 5902-2) 13.9 11.9-14.5 [facility] CenterProthromb Time International Ratio 2019-05-19 15:10:00* Test Item Value Reference Range Interpretation Comments Prothromb Time International Ratio (test code = 6301-6) 1.02 Oral Anticoagulant Therapy INR Values:1. Low Intensity Therapy 1.5 - 2.02 . Moderate Intensity Therapy 2.0 - 3.03. High Intensity Therapy(1) 2.5 - 3. 54. High Intensity Therapy(2) 3.0 - 4.05. Panic Value INR > 5.0 [facility] CenterWhite Blood Hgulg6514-13-98 15:10:00* Test Item Value Reference Range Interpretation Comments White Blood Count (test code = 6690-2) 9.16 4.8-10.8 [facility] CenterRed Blood Mhjhb6785-12-64 15:10:00* Test Item Value Reference Range Interpretation Comments Red Blood Count (test code = 789-8) 3.59 3.6-5.1 L [facility] CenterHemoglobin2020-01-05 15:10:00* Test Item Value Reference Range Interpretation Comments Hemoglobin (test code = 58730-4) 11.1 12.0-16.0 L [facility] CenterHematocrit2020-01-05 15:10:00* Test Item Value Reference Range Interpretation Comments Hematocrit (test code = 4544-3) 34.9 34.2-44.1 [facility] CenterMean Corpuscular Yyrcdc6232-16-81 15:10:00* Test Item Value Reference Range Interpretation Comments Mean Corpuscular Volume (test code = 787-2) 97.2 81-99 [facility] CenterMean Corpuscular Akfqphbubs6205-69-46 15:10:00* Test Item Value Reference Range Interpretation Comments Mean Corpuscular Hemoglobin (test code = 785-6) 30.9 28-32 [facility] CenterMean Corpuscular Hemoglobin Concent 2019-05-19 15:10:00* Test Item Value Reference Range Interpretation Comments Mean Corpuscular Hemoglobin Concent (test code = 786-4) 31.8 31-35 [facility] CenterRed Cell Distribution Prtmv7507-71-89 15:10:00* Test Item Value Reference Range Interpretation Comments Red Cell Distribution Width (test code = 60029-0) 13.8 11.7 -14.4 [facility] CenterPlatelet Pqwtq7263-46-45 15:10:00* Test Item Value Reference Range Interpretation Comments Platelet Count (test code = 777-3) 265 140-360 [facility] CenterNeutrophils (%) (Auto)2019-05-19 15:10:00 * Test Item Value Reference Range Interpretation Comments Neutrophils (%) (Auto) (test code = 38156-1) 68.1 38.7-80.0 [facility] CenterLymphocytes (%) (Auto)2019-05-19 15:10:00 * Test Item Value Reference Range Interpretation Comments Lymphocytes (%) (Auto) (test code = 736-9) 20.0 18.0-39.1 [facility] CenterMonocytes (%) (Auto)2019-05-19 15:10:00* Test Item Value Reference Range Interpretation Comments Monocytes (%) (Auto) (test code = 5905-5) 7.4 4.4-11.3 [facility] CenterEosinophils (%) (Auto)2019-05-19 15:10:00 * Test Item Value Reference Range Interpretation Comments Eosinophils (%) (Auto) (test code = 713-8) 4.0 0.0-6.0 [facility] CenterBasophils (%) (Auto)2019-05-19 15:10:00* Test Item Value Reference Range Interpretation Comments Basophils (%) (Auto) (test code = 706-2) 0.2 0.0-1.0 [facility] CenterIM GRANULOCYTES %2019-05-19 15:10:00* Test Item Value Reference Range Interpretation Comments IM GRANULOCYTES % (test code = IM GRANULOCYTES %) 0.3 0.0- 1.0 [facility] CenterNeutrophils # (Auto)2019-05-19 15:10:00* Test Item Value Reference Range Interpretation Comments Neutrophils # (Auto) (test code = 751-8) 6.2 2.1-6.9 [facility] CenterLymphocytes # (Auto)2019-05-19 15:10:00* Test Item Value Reference Range Interpretation Comments Lymphocytes # (Auto) (test code = 50119-1) 1.8 1.0-3.2 [facility] CenterMonocytes # (Auto)2019-05-19 15:10:00* Test Item Value Reference Range Interpretation Comments Monocytes # (Auto) (test code = 742-7) 0.7 0.2-0.8 [facility] CenterEosinophils # (Auto)2019-05-19 15:10:00* Test Item Value Reference Range Interpretation Comments Eosinophils # (Auto) (test code = 711-2) 0.4 0.0-0.4 [facility] CenterBasophils # (Auto)2019-05-19 15:10:00* Test Item Value Reference Range Interpretation Comments Basophils # (Auto) (test code = 704-7) 0.0 0.0-0.1 [facility] CenterAbsolute Immature Granulocyte (auto 2019-05-19 15:10:00* Test Item Value Reference Range Interpretation Comments Absolute Immature Granulocyte (auto (kwabena t code = Absolute Immature Granulocyte (auto) 0.03 0-0.1 [facility] CenterProthrombin Dggj5422-44-80 15:10:00* Test Item Value Reference Range Interpretation Comments Prothrombin Time (test code = 5902-2) 13.9 11.9-14.5 [facility] CenterProthromb Time International Ratio 2019-05-19 15:10:00* Test Item Value Reference Range Interpretation Comments Prothromb Time International Ratio (test code = 6301-6) 1.02 Oral Anticoagulant Therapy INR Values:1. Low Intensity Therapy 1.5 - 2.02 . Moderate Intensity Therapy 2.0 - 3.03. High Intensity Therapy(1) 2.5 - 3. 54. High Intensity Therapy(2) 3.0 - 4.05. Panic Value INR > 5.0 [facility] CenterInfluenza virus A and B antigen identification by oeqbbwsuamhvvfzvgt7118-66-90 15:08:00* Test Item Value Reference Range Interpretation Comments Influenza Virus Types A,B Antigen (test code = 40571-8) NEGATIVE NEGATIVE [facility] Tovrx9402-29-28 14:33:00* Test Item Value Reference Range Interpretation Comments Sodium Level (test code = 2951-2) 137 136-145 [facility] CenterPotassium Jmgxg8408-36-81 14:33:00* Test Item Value Reference Range Interpretation Comments Potassium Level (test code = 2823-3) 3.4 3.5-5.1 L [facility] CenterChloride Mgtpz3815-29-58 14:33:00* Test Item Value Reference Range Interpretation Comments Chloride Level (test code = 2075-0) 97 98-107 L [facility] CenterCarbon Dioxide Oaogu1477-41-55 14:33:00* Test Item Value Reference Range Interpretation Comments Carbon Dioxide Level (test code = 2028-9) 28 22-29 [facility] CenterAnion Ytz7316-02-79 14:33:00* Test Item Value Reference Range Interpretation Comments Anion Gap (test code = 35335-0) 15.4 8-16 [facility] CenterBlood Urea Nacsqpgr3365-30-03 14:33:00* Test Item Value Reference Range Interpretation Comments Blood Urea Nitrogen (test code = 3094-0) 9 7-26 [facility] CenterCreatinine2020-01-05 14:33:00* Test Item Value Reference Range Interpretation Comments Creatinine (test code = 2160-0) 0.74 0.57-1.11 [facility] CenterBUN/Creatinine Hdgrt3475-05-93 14:33:00* Test Item Value Reference Range Interpretation Comments BUN/Creatinine Ratio (test code = 3097-3) 12 6-25 [facility] CenterEstimat Glomerular Filtration Rate 2019-05-19 14:33:00* Test Item Value Reference Range Interpretation Comments Estimat Glomerular Filtration Rate (test code = 211431374) > 60 >60 Ranges were taken from the National Kidney Disease Education Program and the [facility] Kidney Foundation literature.Reference ranges:60 or greater: Fdnevf16-03 ( for 3 consecutive months): Chronic kidney disease 15 or less: Kidney failureLamb Healthcare CenterGlucose Lqgao8400-76-65 14:33:00* Test Item Value Reference Range Interpretation Comments Glucose Level (test code = BHJ5616) 94 74-118 [facility] CenterCalcium Xlieq2766-80-94 14:33:00* Test Item Value Reference Range Interpretation Comments Calcium Level (test code = 15914-5) 8.6 8.4-10.2 [facility] CenterTotal Spnghhwbq3572-33-75 14:33:00* Test Item Value Reference Range Interpretation Comments Total Bilirubin (test code = 1975-2) 0.2 0.2-1.2 [facility] CenterAspartate Amino Transf (AST/SGOT) 2019-05-19 14:33:00* Test Item Value Reference Range Interpretation Comments Aspartate Amino Transf (AST/SGOT) (test code = Aspartate Amino Transf (AST/SGOT)) 16 5-34 [facility] CenterAlanine Aminotransferase (ALT/SGPT) 2019-05-19 14:33:00* Test Item Value Reference Range Interpretation Comments Alanine Aminotransferase (ALT/SGPT) (test code = 1742-6) 35 0-55 [facility] CenterTotal Olfpwle6310-51-48 14:33:00* Test Item Value Reference Range Interpretation Comments Total Protein (test code = 2885-2) 6.0 6.5-8.1 L [facility] CenterAlbumin2020-01-05 14:33:00* Test Item Value Reference Range Interpretation Comments Albumin (test code = 1751-7) 3.4 3.5-5.0 L [facility] CenterGlobulin2020-01-05 14:33:00* Test Item Value Reference Range Interpretation Comments Globulin (test code = 03229-4) 2.6 2.3-3.5 [facility] CenterAlbumin/Globulin Ksrts8663-39-04 14:33:00 * Test Item Value Reference Range Interpretation Comments Albumin/Globulin Ratio (test code = 1759-0) 1.3 0.8-2.0 [facility] CenterAlkaline Konircycarj0370-11-31 14:33:00* Test Item Value Reference Range Interpretation Comments Alkaline Phosphatase (test code = 6768-6) 119 40-150 [facility] CenterCreatine Zjcijc6315-64-19 14:33:00* Test Item Value Reference Range Interpretation Comments Creatine Kinase (test code = 2157-6) 45 29-168 [facility] CenterCreatine Kinase EE2314-00-04 14:33:00* Test Item Value Reference Range Interpretation Comments Creatine Kinase MB (test code = 50243-2) 0.20 0-5.0 [facility] CenterTroponin Q5802-55-82 14:33:00* Test Item Value Reference Range Interpretation Comments Troponin I (test code = SQC8203) 0.004 0-0.300 [facility] Sbxly8292-92-51 14:33:00* Test Item Value Reference Range Interpretation Comments Sodium Level (test code = 2951-2) 137 136-145 [facility] CenterPotassium Qwztm6283-03-75 14:33:00* Test Item Value Reference Range Interpretation Comments Potassium Level (test code = 2823-3) 3.4 3.5-5.1 L [facility] CenterChloride Pxsns6612-65-40 14:33:00* Test Item Value Reference Range Interpretation Comments Chloride Level (test code = 2075-0) 97 98-107 L [facility] CenterCarbon Dioxide Lofvv8920-81-84 14:33:00* Test Item Value Reference Range Interpretation Comments Carbon Dioxide Level (test code = 2028-9) 28 22-29 [facility] CenterAnion Fod4369-66-83 14:33:00* Test Item Value Reference Range Interpretation Comments Anion Gap (test code = 11533-2) 15.4 8-16 [facility] CenterBlood Urea Jhtyemja2858-26-36 14:33:00* Test Item Value Reference Range Interpretation Comments Blood Urea Nitrogen (test code = 3094-0) 9 7-26 [facility] CenterCreatinine2020-01-05 14:33:00* Test Item Value Reference Range Interpretation Comments Creatinine (test code = 2160-0) 0.74 0.57-1.11 [facility] CenterBUN/Creatinine Zwdbu4093-09-34 14:33:00* Test Item Value Reference Range Interpretation Comments BUN/Creatinine Ratio (test code = 3097-3) 12 6-25 [facility] CenterEstimat Glomerular Filtration Rate 2019-05-19 14:33:00* Test Item Value Reference Range Interpretation Comments Estimat Glomerular Filtration Rate (test code = 247161183) > 60 >60 Ranges were taken from the National Kidney Disease Education Program and the [facility] literature.Reference ranges:60 or greater: Fhkldn34-98 ( for 3 consecutive months): Chronic kidney disease 15 or less: Kidney failureLamb Healthcare CenterGlucose Xywzt0070-85-24 14:33:00* Test Item Value Reference Range Interpretation Comments Glucose Level (test code = YJH8681) 94 74-118 [facility] CenterCalcium Wxnoy3111-95-02 14:33:00* Test Item Value Reference Range Interpretation Comments Calcium Level (test code = 01612-3) 8.6 8.4-10.2 [facility] CenterTotal Hmwrmtzqn3107-72-10 14:33:00* Test Item Value Reference Range Interpretation Comments Total Bilirubin (test code = 1975-2) 0.2 0.2-1.2 [facility] CenterAspartate Amino Transf (AST/SGOT) 2019-05-19 14:33:00* Test Item Value Reference Range Interpretation Comments Aspartate Amino Transf (AST/SGOT) (test code = Aspartate Amino Transf (AST/SGOT)) 16 5-34 [facility] CenterAlanine Aminotransferase (ALT/SGPT) 2019-05-19 14:33:00* Test Item Value Reference Range Interpretation Comments Alanine Aminotransferase (ALT/SGPT) (test code = 1742-6) 35 0-55 [facility] CenterTotal Dcclcxt9381-48-64 14:33:00* Test Item Value Reference Range Interpretation Comments Total Protein (test code = 2885-2) 6.0 6.5-8.1 L [facility] CenterAlbumin2020-01-05 14:33:00* Test Item Value Reference Range Interpretation Comments Albumin (test code = 1751-7) 3.4 3.5-5.0 L [facility] CenterGlobulin2020-01-05 14:33:00* Test Item Value Reference Range Interpretation Comments Globulin (test code = 09745-3) 2.6 2.3-3.5 [facility] CenterAlbumin/Globulin Jvrub5032-57-93 14:33:00 * Test Item Value Reference Range Interpretation Comments Albumin/Globulin Ratio (test code = 1759-0) 1.3 0.8-2.0 [facility] CenterAlkaline Eronlpwxcte8764-13-41 14:33:00* Test Item Value Reference Range Interpretation Comments Alkaline Phosphatase (test code = 6768-6) 119 40-150 [facility] CenterCreatine Mkfszh8966-85-97 14:33:00* Test Item Value Reference Range Interpretation Comments Creatine Kinase (test code = 2157-6) 45 29-168 [facility] CenterCreatine Kinase GS8023-99-06 14:33:00* Test Item Value Reference Range Interpretation Comments Creatine Kinase MB (test code = 08813-8) 0.20 0-5.0 [facility] CenterTroponin V3220-75-17 14:33:00* Test Item Value Reference Range Interpretation Comments Troponin I (test code = RNH4431) 0.004 0-0.300 [facility]CH[facility] 2 VSVDU1379-86-66 14:00:00 [facility] [address] [address] Patient Name: LOGAN MCCRACKEN MR #: [id number] : 1975 Age/Sex: 43/F Req #: [id number] Adm Physician: Ordered by: GERARDO SARGENT [employer] Report #: [id number] Location: ER Room/Bed: Procedure: [id number] DX/CHEST 2 VIEWS Exam Date: 05/19/19 Exam [...] focal consolidation. Signed by : Dr. Bryant Savage MD on 05/19/2019 2:02 PM Dictated By: BRYANT SAVAGE MD 01 Transcribed By: Malik BENSON on 05/19/191401 COPY TO: GERARDO SARGENT [employer] Manual blood eosinophil count as percentage of total geblppmbhi7793-78-17 13:50:00* Test Item Value Reference Range Interpretation Comments Eosinophils % (Manual) (test code = 714-6) 5 0-7 [facility] CenterProthrombin time (PT) in platelet poor plasma by coagulation ftprs4277-90-67 13:50:00* Test Item Value Reference Range Interpretation Comments Prothrombin Time (test code = 5902-2) 13.9 11.9-14.5 [facility] CenterINR in Platelet poor plasma by Coagulation ngiwf1003-90-45 13:50:00* Test Item Value Reference Range Interpretation Comments Prothromb Time International Ratio (test code = 6301-6) 1.02 Oral Anticoagulant Therapy INR Values:1. Low Intensity Therapy 1.5 - 2.02 . Moderate Intensity Therapy 2.0 - 3.03. High Intensity Therapy(1) 2.5 - 3. 54. High Intensity Therapy(2) 3.0 - 4.05. Panic Value INR > 5.0 [facility] CenterActivated partial thromboplastin time (aPTT) in platelet poor plasma by coagulation duzfy6938-70-40 13:50:00* Test Item Value Reference Range Interpretation Comments Activated Partial Thromboplast Time (test code = 87674-3) 33.0 23.8-35.5 [facility] CenterBlood Kchpezr6177-50-34 20:38:00* Test Item Value Reference Range Interpretation Comments Blood Culture (test code = 34125753) NO GROWTH AFTER 5 DAYS, FINAL REPORT [facility] CenterCreatine Kinase LJ8299-87-62 21:35:00* Test Item Value Reference Range Interpretation Comments Creatine Kinase MB (test code = 64086-6) 1.20 0-5.0 [facility] CenterTroponin J8089-44-46 21:35:00* Test Item Value Reference Range Interpretation Comments Troponin I (test code = PJN9440) < 0.001 0-0.300 [facility] CenterThyroid Stimulating Hormone (TSH) 2018-09-18 21:35:00* Test Item Value Reference Range Interpretation Comments Thyroid Stimulating Hormone (TSH) (test code = 22003-9) 3.336 0.350-4.940 [facility] CenterThyroid Stimulating Hormone (TSH) 2018-09-18 21:35:00* Test Item Value Reference Range Interpretation Comments Thyroid Stimulating Hormone (TSH) (test code = 74174-1) 3.336 0.350-4.940 [facility] CenterB-Type Natriuretic Fpydfws2285-62-01 21:20:00* Test Item Value Reference Range Interpretation Comments B-Type Natriuretic Peptide (test code = 74666-5) 24.2 0-100 [facility] CenterB-Type Natriuretic Ksydbxt3540-31-43 21:20:00* Test Item Value Reference Range Interpretation Comments B-Type Natriuretic Peptide (test code = 63470-7) 24.2 0-100 [facility] CenterD-Dimer Quantitative (PE/DVT)2018-09-18 21:15:00* Test Item Value Reference Range Interpretation Comments D-Dimer Quantitative (PE/DVT) (test code = 37118-1) 0.33 0. 00-0.45 As with all in vitro diagnostic tests, the test results should be interpreted by the physician in conjunction with clinical findings and other test results.Test results are reported in NEW D-dimer units(ug/mLFEU).[facility] CenterD-Dimer Quantitative (PE/DVT)2018-09-18 21:15:00* Test Item Value Reference Range Interpretation Comments D-Dimer Quantitative (PE/DVT) (test code = 77382-3) 0.33 0. 00-0.45 As with all in vitro diagnostic tests, the test results should be interpreted by the physician in conjunction with clinical findings and other test results.Test results are reported in NEW D-dimer units(ug/mLFEU).[facility] Wgpvt2613-12-75 21:13:00* Test Item Value Reference Range Interpretation Comments Sodium Level (test code = 2951-2) 139 136-145 [facility] CenterPotassium Qosix8535-55-12 21:13:00* Test Item Value Reference Range Interpretation Comments Potassium Level (test code = 2823-3) 3.7 3.5-5.1 [facility] CenterChloride Dtdqo8555-88-79 21:13:00* Test Item Value Reference Range Interpretation Comments Chloride Level (test code = 2075-0) 103 98-107 [facility] CenterCarbon Dioxide Zisom6988-56-97 21:13:00* Test Item Value Reference Range Interpretation Comments Carbon Dioxide Level (test code = 2028-9) 27 22-29 [facility] CenterAnion Ubz2176-00-87 21:13:00* Test Item Value Reference Range Interpretation Comments Anion Gap (test code = 02948-4) 12.7 8-16 [facility] CenterBlood Urea Urfwlbdz9929-39-67 21:13:00* Test Item Value Reference Range Interpretation Comments Blood Urea Nitrogen (test code = 3094-0) 12 7-26 [facility] CenterCreatinine2019-05-07 21:13:00* Test Item Value Reference Range Interpretation Comments Creatinine (test code = 2160-0) 0.80 0.57-1.11 [facility] CenterBUN/Creatinine Xpusy8633-63-76 21:13:00* Test Item Value Reference Range Interpretation Comments BUN/Creatinine Ratio (test code = 3097-3) 15 6-25 [facility] CenterEstimat Glomerular Filtration Rate 2018-09-18 21:13:00* Test Item Value Reference Range Interpretation Comments Estimat Glomerular Filtration Rate (test code = 177884683) > 60 >60 Ranges were taken from the National Kidney Disease Education Program and the [facility] Foundation literature.Reference ranges:60 or greater: Wvvzrj42-59 ( for 3 consecutive months): Chronic kidney disease 15 or less: Kidney failureLamb Healthcare CenterGlucose Epyqa7505-83-23 21:13:00* Test Item Value Reference Range Interpretation Comments Glucose Level (test code = OJU1446) 89 74-118 [facility] CenterCalcium Apnar9855-03-92 21:13:00* Test Item Value Reference Range Interpretation Comments Calcium Level (test code = 47542-3) 9.0 8.4-10.2 [facility] CenterTotal Igpjfpnkx9620-73-39 21:13:00* Test Item Value Reference Range Interpretation Comments Total Bilirubin (test code = 1975-2) 0.2 0.2-1.2 [facility] CenterAspartate Amino Transf (AST/SGOT) 2018-09-18 21:13:00* Test Item Value Reference Range Interpretation Comments Aspartate Amino Transf (AST/SGOT) (test code = Aspartate Amino Transf (AST/SGOT)) 14 5-34 [facility] CenterAlanine Aminotransferase (ALT/SGPT) 2018-09-18 21:13:00* Test Item Value Reference Range Interpretation Comments Alanine Aminotransferase (ALT/SGPT) (test code = 1742-6) 18 0-55 [facility] CenterTotal Kgaaldq5102-21-72 21:13:00* Test Item Value Reference Range Interpretation Comments Total Protein (test code = 2885-2) 6.2 6.5-8.1 L [facility] CenterAlbumin2019-05-07 21:13:00* Test Item Value Reference Range Interpretation Comments Albumin (test code = 1751-7) 3.2 3.5-5.0 L [facility] CenterGlobulin2019-05-07 21:13:00* Test Item Value Reference Range Interpretation Comments Globulin (test code = 16711-8) 3.0 2.3-3.5 [facility] CenterAlbumin/Globulin Xzwhe3106-48-43 21:13:00 * Test Item Value Reference Range Interpretation Comments Albumin/Globulin Ratio (test code = 1759-0) 1.1 0.8-2.0 [facility] CenterAlkaline Vayhizaatub6034-73-66 21:13:00* Test Item Value Reference Range Interpretation Comments Alkaline Phosphatase (test code = 6768-6) 116 40-150 [facility] CenterCreatine Mflmqa0786-59-15 21:13:00* Test Item Value Reference Range Interpretation Comments Creatine Kinase (test code = 2157-6) 90 29-168 [facility] CenterProthrombin Gufm6660-29-77 21:06:00* Test Item Value Reference Range Interpretation Comments Prothrombin Time (test code = 5902-2) 13.8 11.9-14.5 [facility] CenterProthromb Time International Ratio 2018-09-18 21:06:00* Test Item Value Reference Range Interpretation Comments Prothromb Time International Ratio (test code = 6301-6) 1.01 Oral Anticoagulant Therapy INR Values:1. Low Intensity Therapy 1.5 - 2.02 . Moderate Intensity Therapy 2.0 - 3.03. High Intensity Therapy(1) 2.5 - 3. 54. High Intensity Therapy(2) 3.0 - 4.05. Panic Value INR > 5.0 [facility] CenterActivated Partial Thromboplast Time 2018-09-18 21:06:00* Test Item Value Reference Range Interpretation Comments Activated Partial Thromboplast Time (test code = 63366-5) 34.6 23.8-35.5 [facility] CenterLactic Acid Ovsoe9502-00-27 20:57:00* Test Item Value Reference Range Interpretation Comments Lactic Acid Level (test code = Lactic Acid Level) 9.1 4.5- 19.8 [facility] CenterWhite Blood Rqwmw3878-42-22 20:55:00* Test Item Value Reference Range Interpretation Comments White Blood Count (test code = 6690-2) 7.90 4.8-10.8 [facility] CenterRed Blood Kjocn7935-65-62 20:55:00* Test Item Value Reference Range Interpretation Comments Red Blood Count (test code = 789-8) 3.30 3.6-5.1 L [facility] CenterHemoglobin2019-05-07 20:55:00* Test Item Value Reference Range Interpretation Comments Hemoglobin (test code = 47676-8) 10.1 12.0-16.0 L [facility] CenterHematocrit2019-05-07 20:55:00* Test Item Value Reference Range Interpretation Comments Hematocrit (test code = 4544-3) 32.3 34.2-44.1 L [facility] CenterMean Corpuscular Dwkenu1680-97-93 20:55:00* Test Item Value Reference Range Interpretation Comments Mean Corpuscular Volume (test code = 787-2) 97.9 81-99 [facility] CenterMean Corpuscular Pefyztlqxx9956-80-71 20:55:00* Test Item Value Reference Range Interpretation Comments Mean Corpuscular Hemoglobin (test code = 785-6) 30.6 28-32 [facility] CenterMean Corpuscular Hemoglobin Concent 2018-09-18 20:55:00* Test Item Value Reference Range Interpretation Comments Mean Corpuscular Hemoglobin Concent (test code = 786-4) 31.3 31-35 [facility] CenterRed Cell Distribution Kxjan7750-16-87 20:55:00* Test Item Value Reference Range Interpretation Comments Red Cell Distribution Width (test code = 68732-9) 13.6 11.7 -14.4 [facility] CenterPlatelet Idvpz1473-66-54 20:55:00* Test Item Value Reference Range Interpretation Comments Platelet Count (test code = 777-3) 420 140-360 H [facility] CenterNeutrophils (%) (Auto)2018-09-18 20:55:00 * Test Item Value Reference Range Interpretation Comments Neutrophils (%) (Auto) (test code = 89002-6) 77.7 38.7-80.0 [facility] CenterLymphocytes (%) (Auto)2018-09-18 20:55:00 * Test Item Value Reference Range Interpretation Comments Lymphocytes (%) (Auto) (test code = 736-9) 13.7 18.0-39.1 L [facility] CenterMonocytes (%) (Auto)2018-09-18 20:55:00* Test Item Value Reference Range Interpretation Comments Monocytes (%) (Auto) (test code = 5905-5) 3.4 4.4-11.3 L [facility] CenterEosinophils (%) (Auto)2018-09-18 20:55:00 * Test Item Value Reference Range Interpretation Comments Eosinophils (%) (Auto) (test code = 713-8) 4.4 0.0-6.0 [facility] CenterBasophils (%) (Auto)2018-09-18 20:55:00* Test Item Value Reference Range Interpretation Comments Basophils (%) (Auto) (test code = 706-2) 0.4 0.0-1.0 [facility] CenterIM GRANULOCYTES %2018-09-18 20:55:00* Test Item Value Reference Range Interpretation Comments IM GRANULOCYTES % (test code = IM GRANULOCYTES %) 0.4 0.0- 1.0 [facility] CenterNeutrophils # (Auto)2018-09-18 20:55:00* Test Item Value Reference Range Interpretation Comments Neutrophils # (Auto) (test code = 751-8) 6.1 2.1-6.9 [facility] CenterLymphocytes # (Auto)2018-09-18 20:55:00* Test Item Value Reference Range Interpretation Comments Lymphocytes # (Auto) (test code = 54157-8) 1.1 1.0-3.2 [facility] CenterMonocytes # (Auto)2018-09-18 20:55:00* Test Item Value Reference Range Interpretation Comments Monocytes # (Auto) (test code = 742-7) 0.3 0.2-0.8 [facility] CenterEosinophils # (Auto)2018-09-18 20:55:00* Test Item Value Reference Range Interpretation Comments Eosinophils # (Auto) (test code = 711-2) 0.4 0.0-0.4 [facility] CenterBasophils # (Auto)2018-09-18 20:55:00* Test Item Value Reference Range Interpretation Comments Basophils # (Auto) (test code = 704-7) 0.0 0.0-0.1 [facility] CenterAbsolute Immature Granulocyte (auto 2018-09-18 20:55:00* Test Item Value Reference Range Interpretation Comments Absolute Immature Granulocyte (auto (kwabena t code = Absolute Immature Granulocyte (auto) 0.03 0-0.1 [facility] CenterCHEST 2 XOSOU5916-95-76 18:35:00 [facility] [address] [place], [place] [address] Patient Name: LOGAN MCCRACKEN MR #: [id number] : 1975 Age/Sex: 42/F Req #: [id number] Adm Physician: Ordered by: AURELIO ESTRELLA [employer] Report #: [id number] Location: ER Room/Bed: Procedure: [id number] X/CHEST 2 VIEWS Exam Date: Exam [...] acute thoracic abnormality. Signed by: Dr. Eh Gonzalez M.D. on 09/18/2018 6:36 PM Dictated By: JAZMYN GONZALEZ MD, MD Electronically Sig osiel By: JAZMYN GONZALEZ MD, MD on 09/18/181835 Transcribed By: ANUSHKA on 1835 COPY TO: AURELIO ESTRELLA [employer] Urine AHZ5850-03-42 18:24:00 * Test Item Value Reference Range Interpretation Comments Urine WBC (test code = 5821-4) 11-20 0-5 H [facility] CenterUrine POS5395-28-39 18:24:00* Test Item Value Reference Range Interpretation Comments Urine RBC (test code = 25833-2) 0-5 0-5 [facility] CenterUrine Vcrisocp2382-86-61 18:24:00* Test Item Value Reference Range Interpretation Comments Urine Bacteria (test code = 71478-7) NONE NONE [facility] CenterUrine Epithelial Csbqb8831-87-10 18:24:00 * Test Item Value Reference Range Interpretation Comments Urine Epithelial Cells (test code = 99469-6) RARE NONE [facility] CenterUrine Transitional Epithelial Cells 2018-09-18 18:24:00* Test Item Value Reference Range Interpretation Comments Urine Transitional Epithelial Cells (test code = 8249-5) FEW NONE H [facility] CenterUrine Transitional Epithelial Cells 2018-09-18 18:24:00* Test Item Value Reference Range Interpretation Comments Urine Transitional Epithelial Cells (test code = 8249-5) FEW NONE H [facility] CenterUrine Eefqy4447-31-76 18:12:00* Test Item Value Reference Range Interpretation Comments Urine Color (test code = 5778-6) YELLOW YELLOW [facility] CenterUrine Luqjsvb0403-09-76 18:12:00* Test Item Value Reference Range Interpretation Comments Urine Clarity (test code = 11441-5) CLEAR CLEAR [facility] CenterUrine Specific Bzzzqck3065-83-98 18:12:00 * Test Item Value Reference Range Interpretation Comments Urine Specific [place] (test code = 5811-5) 1.005 1.010-1.02 5 L [facility] CenterUrine vN0473-45-10 18:12:00* Test Item Value Reference Range Interpretation Comments Urine pH (test code = 73884-2) 7 5-7 [facility] CenterUrine Leukocyte Jbarhlqs1011-36-37 18:12:00* Test Item Value Reference Range Interpretation Comments Urine Leukocyte Esterase (test code = 5799-2) [facility] NEGATIVE [facility] Isqrxpr8053-10-73 18:12:00* Test Item Value Reference Range Interpretation Comments Urine Nitrite (test code = 78856-8) POSITIVE NEGATIVE [facility] Center[facility] Sqnfaqr0958-83-33 18:12:00* Test Item Value Reference Range Interpretation Comments Urine Protein (test code = 5804-0) NEGATIVE NEGATIVE [facility] CenterUrine Glucose (UA)2018-09-18 18:12:00* Test Item Value Reference Range Interpretation Comments Urine Glucose (UA) (test code = 2349-9) NEGATIVE NEGATIVE [facility] CenterUrine Fbstvqs1436-22-77 18:12:00* Test Item Value Reference Range Interpretation Comments Urine Ketones (test code = 62888-8) NEGATIVE NEGATIVE [facility] CenterUrine Eycuxlsnhtep0692-62-71 18:12:00* Test Item Value Reference Range Interpretation Comments Urine Urobilinogen (test code = 23058-9) 0.2 0.2-1 [facility] CenterUrine Jinktnlmi3175-29-87 18:12:00* Test Item Value Reference Range Interpretation Comments Urine Bilirubin (test code = 1978-6) NEGATIVE NEGATIVE [facility] Qncgu2544-83-20 18:12:00* Test Item Value Reference Range Interpretation Comments Urine Blood (test code = 32084-9) NEGATIVE NEGATIVE [facility] CenterHEMATOLOGY2017-03-01 11:12:008[facility] JlvgzaoTEHZYDQYWH9826-74-00 11:12:00<2.9[facility] GjmffohIWSRUJDSFC5353-45-78 11:09:0033.4[facility] IztfozjLVKVGGUYSZ6730-78-17 11:09:009.1[facility] BHZMRFIBGI7959-09-15 11:09:0015.9[facility] CxebftuQGLYXQVXDV0147-26-19 11:09:00 271[facility] WsinyylLFGVMIXJLL8996-52-59 11:09:006.0[facility]HEMATOLOGY 2016-07-13 11:09:00* Test Item Value Reference Range Interpretation Comments MCH (test code = MCH) 30.8 pg 27.0-31.0 [facility] OjyxfpiRAXBCRBOQA3128-21-90 11:09:0035.7[facility]annHEMATOLOGY 2016-07-13 11:09:0092.3[facility] BnwhzycNYJWGXDZOZ8754-58-34 11:09:0011.9[facility] LsmulutNXFCBQJTUV2748-90-64 11:09:003.86[facility] JnqzynpYIDYUVCXQZ3697-59-62 11:09:000.1[facility] QhfklrfKUZSWSIJRV4566-32-29 11:09:000.8[facility] GCHDKYDMOH8253-94-00 11:09:008.8[facility] VbplxhcWHBENIMYTY2872-32-52 11:09:008.6 [facility] UtqwdthYJKFYRVMHG4802-02-92 11:09:0038.1[facility]annHEMATOLOGY 2016-07-13 11:09:0043.7[facility] ZqxstnnRJKXIZXMPD2865-25-56 11:09:000.5[facility] HuvtrmvKSGESCMJOK5119-19-87 11:09:000.5[facility] AcexrwyLPCCCCBWYA9138-14-30 11:09:002.6[facility] NzbxrfpVEZVLODOZF7769-07-04 11:09:002.3[facility] HermannCHEM PQXXR0131-54-34 10:47:77598Xdigvfqi HermannCHEM LOCOP9983-67-90 10:47:51688 [facility] BTBVO3156-27-15 10:47:0018[facility]annCHEM PANEL 2016-07-13 10:47:008.6[facility]annCHEM ORYXN4990-69-75 10:47:0086[facility]annCHEM QFSFA2544-82-17 10:47:003.7[facility]annCHEM DYAXQ1073-36-19 10:47:0064[facility]annCHEM JQCNA1173-51-25 10:47:0029[facility]annCHEM DIDIJ0972-62-02 10:47:006.7[facility]annCHEM SIOMK1149-69-69 10:47:0010.3 [facility]annCHE[facility] IMVVK3643-50-75 10:47:00<0.1[facility]annCHEM PANEL 2016-07-13 10:47:0023[facility]annCHEM MDFKJ6830-01-35 10:47:003.0[facility]annCHEM SXWPT1044-14-51 10:47:001.2[facility]annCHEM OCLXM3438-11-22 10:47:43689Lvqpdicj HermannCHEM FBICX4866-07-63 10:47:004.3[facility]annCHEM NQRXJ4423-09-05 10:47:27531Zhkyfkom HermannCHEM TUBFP0962-35-29 10:47:000.71 [facility]annCHEM WLUGM4901-87-05 10:47:0016[facility]annCHEM PANEL 2016-07-13 10:47:0087[facility] SMTVW5782-54-70 10:47:00Clear (07/13/16 4:47 AM)[facility] FZTGM3167-99-87 10:47:00Yellow *NA*(07/13/16 4:47 AM)[facility] RDJZD6305-79-63 10:47:005.0 [facility] ZDCHO0440-92-47 10:47:00Negative *NA*(07/13/16 4:47 AM) [facility] YHDSD4532-84-93 10:47:001[facility] GLWOT9740-87-71 10:47:00Small *ABN*(07/13/16 4:47 AM)[facility] TXRYO1208-38-06 10:47:00Negative (07/13/16 4:47 AM)[facility] STOOL 2016-07-13 10:47:005[facility] MTOCW6020-98-46 10:47:003[facility] PRTHG6450-06-27 10:47:001.012[facility] STOOL 2016-07-13 10:47:00Negative (07/13/16 4:47 AM)[facility] WROK0338-73-73 10:47:00Negative (07/13/16 4:47 AM)[facility] SskvgteQKPNTTNJJH3516-98-20 10:05:00 16.4[facility] EuzrlgfSUVYWWSOJX8329-87-99 10:05:008.6[facility] HermannHEMATOLOGY 2016-05-10 10:05:10067Kxqulfmb VrgccqvRVLGWHNVLA6125-43-40 10:05:0033.0[facility] NchyojlTOEJUADWOC3399-93-75 10:05:00* Test Item Value Reference Range Interpretation Comments MCH (test code = MCH) 29.9 pg 27.0-31.0 [facility] VwuprnoJATGPFUAVA2006-90-20 10:05:0090.7[facility] HermannHEMATOLOGY 2016-05-10 10:05:0028.2[facility] WizgakmPDNUTUTJSL9271-94-39 10:05:009.3[facility] VpsklipAMPXNEGXGV6777-26-81 10:05:003.10[facility] HpyonqwIRUQASHEWM1260-19-95 10:05:0010.2[facility] JsdtlicCCQHYRYCKU3601-78-14 10:05:001.2[facility] QJCGKAGIQY2008-99-57 10:05:000.7[facility] DdoqchrFTHJIKOTIC6998-07-41 10:05:002.0 [facility] RgeddgvSUJCCNVMTU4092-79-05 10:05:007.2[facility] HermannHEMATOLOGY 2016-05-10 10:05:0070.1[facility] XugenhbKRXWQXNRUG3072-40-97 10:05:008.1[facility] AzlujgxFKHVNGVDLE0812-37-20 10:05:0019.9[facility] KqgtcddGKOZDNPDSD2617-50-27 10:05:000.8[facility] TswwqaoBAGYDLXGHG9646-79-53 10:05:000.1[facility] BVEOOQLODX7987-11-09 10:05:000.1[facility] HermannCHEM XSZAM9471-73-72 13:00:001.1 [facility]annCHEM KRONI7012-54-63 13:00:002.6[facility] HermannCHEM PANEL 2016-05-05 13:00:0011.8[facility]annCHEM BTZUQ7096-62-33 13:00:0012[facility]annCHEM RGSKQ3176-80-40 13:00:03575Fkhbjpeq HermannCHEM DHYVX7481-55-00 13:00:008[facility]annCHEM TOCYE1843-28-72 13:00:000.1[facility]annCHEM OBMLS8194-61-99 13:00:0065[facility]annCHEM KTUOK6779-45-67 13:00:0043 [facility]annCHE[facility] FBCIU7316-52-89 13:00:005.4[facility]annCHEM PANEL 2016-05-05 13:00:002.8[facility]annCHEM VQWMF6565-09-57 13:00:01779Hhrvvvgd HermannCHEM YEACO1757-75-83 13:00:0029[facility]annCHEM DAAZK8066-49-13 13:00:008.0[facility]annCHEM LPQLI6836-62-06 13:00:003.8[facility]annCHEM LZDUM8712-72-10 13:00:17072Ortmwhgy HermannCHEM AORYO4936-79-68 13:00:008 [facility]annCHEM ZDMQY5991-86-62 13:00:000.66[facility] HermannCHEM PANEL 2016-05-05 13:00:0076[facility] VcsdqkgTEMSIXISTX3570-25-46 13:00:0047.1[facility] MhiiekpJGEVEHLWYE8721-72-60 13:00:0038.2[facility] HvacuceEHRKYKZJHT7830-80-92 13:00:002.0[facility] QfvgeoiEWCBMWBELL9763-61-09 13:00:000.4[facility] MIXZNBNNCY5617-67-50 13:00:002.5[facility] GxvjqtnJUBCMZVQER5539-67-76 13:00:000.4 [facility] FptcmasUSKFPVMXTY9694-91-22 13:00:007.0[facility] HermannHEMATOLOGY 2016-05-05 13:00:000.9[facility] WtcqqqbEIITKZFOIT9177-13-27 13:00:006.8[facility] LatvafdTUBADRDDUQ4633-67-70 13:00:00* Test Item Value Reference Range Interpretation Comments MCH (test code = MCH) 29.5 pg 27.0-31.0 [facility] HhhhprqYVKHHZDREE5648-82-32 13:00:0024.6[facility] HermannHEMATOLOGY 2016-05-05 13:00:0090.3[facility] NjkymgaATLGHKQZUG8777-68-45 13:00:002.73[facility] VjwbkdpNZTJDXRCBH7211-40-05 13:00:008.1[facility] BpfcmveNUZNVYMPGH6175-33-12 13:00:0015.8[facility] HhvhnhgXBSQCHBYWZ3350-53-93 13:00:0032.7[facility] NIDRYYSSTN0454-91-48 13:00:008.8[facility] GyegibtOPXFSFWMME7615-35-65 13:00:87011 [facility] GxvujejHDTVRMJYKZ7344-99-26 13:00:005.3[facility] HermannHEMATOLOGY 2016-04-30 07:31:00* Test Item Value Reference Range Interpretation Comments PTT (test code = PTT) 28.5 s 22.9-35.8 [facility] QwarnsiLKVIRGOVRG5239-55-42 07:31:000.93[facility] HermannHEMATOLOGY 2016-04-30 07:31:00* Test Item Value Reference Range Interpretation Comments PT (test code = PT) 12.7 s 12.0-14.7 [facility] HermannCHEM DHDSZ8390-06-09 05:10:33750Hjlwmdsb HermannCHEM PANEL 2016-04-30 05:10:58744Shsoozkr HermannCHEM USTSJ8755-63-09 05:10:0064[facility] HermannCHEM EBINK0377-33-67 05:10:00<0.1[facility] HermannCHEM VVXAC6201-92-68 05:10:0020[facility] HermannCHEM OQXXM4605-70-88 05:10:008.0[facility] HermannCHEM JBAOV0035-51-06 05:10:0028[facility] HermannCHEM DAAWQ6761-60-98 05:10:27020 [facility]annCHEM XUQQO7272-81-80 05:10:004.1[facility] HermannCHEM PANEL 2016-04-30 05:10:0056[facility] HermannCHEM PDEMP5776-04-32 05:10:003.1[facility] HermannCHEM KUWKT4253-58-88 05:10:006.1[facility] HermannCHEM YKTSY2765-21-17 05:10:90529Srtxuzri HermannCHEM IWWOV0631-61-72 05:10:000.74[facility] HermannCHEM FVTXH3575-45-58 05:10:0019[facility] HermannCHEM LDKUB7309-63-79 05:10:0078 [facility]annCHEM CSXMH7889-88-11 05:10:0012.1[facility] HermannCHEM PANEL 2016-04-30 05:10:0026[facility] HermannCHEM OWXVQ6916-37-62 05:10:003.0[facility] HermannCHEM SDWKZ0791-34-33 05:10:001.0[facility] JxgalapLVHKWYQQOUAUU1148-40-74 05:10:002[facility] OdymxoeNKJFNAMZOH0453-36-63 05:10:000.1[facility] HANOLKOISW8151-85-80 05:10:000.2[facility] FuiltonTKQEGIVTOL5590-81-70 05:10:000.6 [facility] PahufxwDIBWNFDPKD9622-54-47 05:10:002.0[facility] HermannHEMATOLOGY 2016-04-30 05:10:0031.6[facility] BavkkurQWIYOBEYWB7713-62-47 05:10:003.4[facility] IevqzpmAMEMXJLXMO8969-11-58 05:10:009.3[facility] UplozbkQJIVKXBNHS2154-71-61 05:10:003.5[facility] KwdhigwNIANMQZNUH3946-28-35 05:10:001.2[facility] INELUWVEKW2986-97-16 05:10:0054.5[facility] KtmrinlODBEYMBSYD2951-06-21 05:10:00 3.30[facility] MngicsaNBZSVVJLJX8683-09-33 05:10:006.4[facility] HermannHEMATOLOGY 2016-04-30 05:10:0029.9[facility] RcrwnlkEDOLGVSZJY4277-53-85 05:10:0090.6[facility] QyhflsbTLIMXRGPLB8332-75-08 05:10:009.8[facility] PwbsvspOYWKAPLCCW3904-96-11 05:10:008.5[facility] UvpsujaBJTHTSQNFJ1999-99-08 05:10:45568Ysuexpai Shaun PBTIOTGOQH6751-16-62 05:10:0015.6[facility] NkirccvVTSAGQEBUH0895-95-46 05:10:00 32.9[facility] EximqoqDVSMTFWZVN1110-70-53 05:10:00* Test Item Value Reference Range Interpretation Comments MCH (test code = MCH) 29.8 pg 27.0-31.0 [facility] NTYOA8187-83-53 02:56:31Trace *ABN*(04/29/16 8:56 PM) [facility] QTVCB5840-36-16 02:56:311[facility] OSOVO0795-81-90 02:56:315[facility] PLUCN1755-56-08 02:56:317.0 [facility] IOFHJ2896-92-13 02:56:311.014[facility] NWMIB1384-28-57 02:56:31Marked *ABN*(04/29/16 8:56 PM)[facility] QRPXH3901-66-35 02:56:31Yellow *NA*(04/29/16 8:56 PM)[facility] TYWYX2280-21-30 02:56:31Negative (04/29/16 8:56 PM)[facility] NRHSO2585-86-74 02:56:31Negative (04/29/16 8:56 PM)[facility] XWQTQ4765-17-28 02:56:31Negative *NA*(04/29/16 8:56 PM)[facility] HermannCHEM EGEZI9955-49-49 03:18:0090[facility] HermannCHEM SDFAG7770-24-30 03:18:009[facility] HermannCHEM UFVMX0957-05-42 03:18:0028[facility] HermannCHEM VBGNZ5162-07-62 03:18:0060[facility] HermannCHEM ERFWG2597-26-04 03:18:000.2[facility] HermannCHEM YREIP8150-80-67 03:18:008.8[facility] HermannCHEM GHZGY2013-33-80 03:18:0027 [facility]annCHEM MVVMB5092-09-74 03:18:32784Nhdacxpq HermannCHEM PANEL 2016-04-12 03:18:000.82[facility] HermannCHEM YIPIX5475-57-14 03:18:0096[facility] HermannCHEM XSKWZ2907-69-15 03:18:0017[facility]annCHEM NISMO3817-51-39 03:18:03013Zmfrwquu HermannCHEM EMEHL3557-60-08 03:18:004.0[facility] HermannCHEM WVFEC4439-52-25 03:18:006.7[facility]annCHEM EDNIQ8329-28-47 03:18:003.6 [facility]annCHEM JLLLY2744-60-42 03:18:001.2[facility] HermannCHEM PANEL 2016-04-12 03:18:0021[facility] HermannCHEM UCNTP3526-69-31 03:18:003.1[facility] HermannCHEM JJECY6647-14-77 03:18:0013.0[facility] EnuzwujLLGIYRPOORAFH6500-88-18 03:18:00Negative *NA*(04/11/16 9:18 PM)[facility] PkoqpqoFGHHKBMFZY4735-90-29 03:18:00* Test Item Value Reference Range Interpretation Comments MCH (test code = MCH) 29.6 pg 27.0-31.0 [facility] LlfjhsjJFLLVYWKFU4221-21-20 03:18:0032.9[facility] HermannHEMATOLOGY 2016-04-12 03:18:0089.9[facility] FclggwbMLZBCYKCAH0447-63-55 03:18:0030.8[facility] ScerxiiALAHCCTBAX3820-93-75 03:18:39277Bftyuxmn IqpjxqiAILVGXPXIK1459-43-14 03:18:008.7[facility] HvvvepzXDEYIHINJB7014-08-36 03:18:0015.4[facility] MOVGCCKODC1462-29-30 03:18:003.43[facility] IevckxzMAZXRQFHOJ3633-47-05 03:18:00 7.1[facility] WiefpdeLZPUXCFWHA8042-05-11 03:18:0010.1[facility] HermannHEMATOLOGY 2016-04-12 03:18:00* Test Item Value Reference Range Interpretation Comments PTT (test code = PTT) 23.9 s 22.9-35.8 [facility] QtnloorDHNGNKQKEZ9316-63-77 03:18:000.93[facility] HermannHEMATOLOGY 2016-04-12 03:18:00* Test Item Value Reference Range Interpretation Comments PT (test code = PT) 12.7 s 12.0-14.7 [facility] OkbkyohMVZLAKCVWO3437-97-11 03:18:000.5[facility] HermannHEMATOLOGY 2016-04-12 03:18:000.1[facility] AmrcicmSQFOZEAIHE2005-24-08 03:18:001.1[facility] AfzpmfgAHKYRGHKQT1296-45-85 03:18:004.3[facility] PruyyloHIQQEFXCZP2878-63-15 03:18:002.1[facility] RtjdbrmLTPJTDYDWO9481-30-53 03:18:000.6[facility] YAJYJERXPX7643-42-74 03:18:007.4[facility] VqmdxvyYMNTSXYLAN9159-73-17 03:18:00 29.9[facility] AekyrjoEGXVCZRJTJ2825-02-68 03:18:0061.0[facility] AND JYFKW4851-75-83 03:04:009[facility] EYUMP5290-45-96 03:04:0060 [facility] ESFAE8576-92-28 03:04:002[facility] XLUUQ6515-71-54 03:04:001.012[facility] DKFJD9868-46-11 03:04:00 Clear (04/11/16 9:04 PM)[facility] XIWQW3756-89-01 03:04:007.0 [facility] DWHWI9380-29-17 03:04:00Negative *NA*(04/11/16 9:04 PM)[facility] MDYRH3018-20-74 03:04:00Small *ABN*(04/11/16 9:04 PM)[facility] SVPCM3250-20-65 03:04:00Negative (04/11/16 9:04 PM) [facility] NVSSJ5127-95-35 03:04:00Negative (04/11/16 9:04 PM) [facility] LIQMS5847-09-88 03:04:008[facility] VPHYJ2918-66-24 06:00:00Negative (04/06/16 12:00 AM)[facility] FIEJR2728-91-39 06:00:00Negative (04/06/16 12:00 AM)[facility] FUPQZ4525-32-57 06:00:00Negative *NA*(04/06/16 12:00 AM)[facility] YVYJC7735-05-61 06:00:00<1[facility] AND QKVKR5954-30-73 06:00:00 <1[facility] OFFUX8005-98-60 06:00:00Trace *ABN*(04/06/16 12:00 AM)[facility] WYKMK7719-60-20 06:00:008.0[facility] AND OTPAY2801-05-77 06:00:001.003[facility] JKJPW6577-74-61 06:00:00Clear (04/06/16 12:00 AM)[facility] HermannCHEM KUPLG9867-33-82 02:21:00 147[facility] HermannCHEM LZORD1612-62-65 02:21:0037[facility] HermannCHEM PANEL 2016-04-06 02:21:003.4[facility] HermannCHEM QVDIN0050-15-08 02:21:001.2[facility] HermannCHEM SUXHA7156-08-96 02:21:0021[facility] HermannCHEM BVXSM9637-49-20 02:21:0011.0[facility] HermannCHEM LIUQL9481-31-27 02:21:70330Gmtgyliu HermannCHEM JKCQX4285-46-91 02:21:007.6[facility] HermannCHEM ZALMV9306-51-47 02:21:004.2 [facility] HermannCHEM DLLCX3523-24-14 02:21:0030[facility] HermannCHEM PANEL 2016-04-06 02:21:0010[facility] HermannCHEM EUQFK5639-04-51 02:21:009.1[facility] HermannCHEM UOHAD4907-92-56 02:21:0075[facility] HermannCHEM DZEMN8654-95-08 02:21:000.3[facility] HermannCHEM CZNLQ1006-36-92 02:21:30014Jfysjxtr HermannCHEM GUCSZ5091-29-75 02:21:004.0[facility] HermannCHEM IYMRQ9911-84-31 02:21:0030 [facility]annCHEM CTBWU7009-24-66 02:21:97092Fedamjki HermannCHEM PANEL 2016-04-06 02:21:0013[facility] HermannCHEM JELPJ0378-60-14 02:21:000.63[facility] HermannCHEM LPUOW0778-61-63 02:21:0093[facility] HermannCHEM WVBIO4485-98-75 02:21:003.2[facility] HermannCHEM BKVGR2970-60-89 02:21:002.7[facility] UPOSPYEOHNMGT7844-42-61 02:21:00Negative *NA*(04/05/16 8:21 PM)[facility] OQRSVVWOQA5671-43-46 02:21:0013.3[facility] LprlillRUBMBDMPMS2008-08-70 02:21:00 82.4[facility] QoziqryLASMNBUWAM5417-29-31 02:21:008.6[facility] HermannHEMATOLOGY 2016-04-06 02:21:000.2[facility] EviygzyMUKAQYGOLG2604-13-73 02:21:004.1[facility] GraydnuWFCOMHNXVM9329-55-99 02:21:000.4[facility] EojqdszYNTGEMIQKR6170-00-24 02:21:001.4[facility] JuvpdlxIMNPTDAZBO0233-93-31 02:21:79218Scluibow [place] GUPLOUBRTG1957-73-62 02:21:008.8[facility] YgilcwfYJRRHNJPSM9158-93-95 02:21:00 15.9[facility] WhctbsqASFJZPITNJ9807-71-03 02:21:00* Test Item Value Reference Range Interpretation Comments MCH (test code = MCH) 29.4 pg 27.0-31.0 [facility] EecnmnfFOMHBEUSNZ7086-47-96 02:21:0032.4[facility] HermannHEMATOLOGY 2016-04-06 02:21:0033.5[facility] GahufbaCZUTXXIIOQ6583-51-94 02:21:0090.6[facility] GcjyvieEVZVWBYJZC0881-70-40 02:21:0010.9[facility] PzjnwcxSUCILWNGAD1929-59-22 02:21:0010.4[facility] ZlebbqfFAHZNRKRIL0644-37-30 02:21:003.70[facility] URINE AND GWWTY4549-35-63 01:29:004[facility] AND STBJC7059-59-66 01:29:29606Uaxcvjgi HermannURINE AND XMSQD2633-87-39 01:29:0017[facility] URINE AND GLIRM7360-94-73 01:29:001.011[facility] AND APYCL0870-30-90 01:29:00Slight *ABN*(03/02/16 8:29 PM)[facility] BWFZK9140-13-73 01:29:00Negative (03/02/16 8:29 PM)[facility] DEWHA4156-70-17 01:29:00Negative *NA*(03/02/16 8:29 PM)[facility] XKWBO4199-31-17 01:29:005.0[facility] AND WMMYL9159-86-24 01:29:00Large *ABN*(03/02/16 8:29 PM)[facility] STBRC5118-95-76 01:29:00 Negative (03/02/16 8:29 PM)[facility] HermannCHEM KOVYX4585-33-92 00:34:46728 [facility]annCHEM JDUMX0924-78-85 00:34:0023[facility] HermannCHEM PANEL 2016-03-03 00:34:007.1[facility] HermannCHEM SWCRR7400-18-70 00:34:008.8[facility] HermannCHEM JOBUS0683-53-27 00:34:91291Ppbfnjij HermannCHEM UTBDX1473-40-36 00:34:000.61[facility] HermannCHEM CNWIB1310-38-35 00:34:09562Juvlrwyj HermannCHEM BLJKN1030-83-12 00:34:004.0[facility] HermannCHEM NEVXV0744-87-85 00:34:0017 [facility]annCHEM XTQUG1742-08-19 00:34:0084[facility] HermannCHEM PANEL 2016-03-03 00:34:00<0.1[facility] HermannCHEM TKKCI9767-76-65 00:34:001.1[facility] HermannCHEM TBEFW7272-88-42 00:34:0035[facility] HermannCHEM YXNXD0312-12-54 00:34:003.7[facility] HermannCHEM HCXIL6545-60-35 00:34:0013.0[facility] HermannCHEM QVGDQ1164-77-21 00:34:003.4[facility] HermannCHEM PXBMH3161-46-95 00:34:0028 [facility]annCHEM DNYEL3622-96-55 00:34:0013[facility] HermannCHEM PANEL 2016-03-03 00:34:0099[facility] HermannCHEM THVKV4092-37-69 00:34:0046[facility] HermannCHEM ZFWAH7876-37-25 00:34:38965Nrcqdwpx HermannCHEM ELJNX7167-09-47 00:34:000.1[facility] LaohnjeONMRLFVEED2950-25-63 00:34:04596Uhxfdryj [place] FVUPCNLMTX0443-51-27 00:34:009.3[facility] GcbfnplXANBFVIWJK1443-61-88 00:34:00 15.1[facility] TxjiinbMEGHGWWDZW9993-80-48 00:34:006.1[facility] HermannHEMATOLOGY 2016-03-03 00:34:003.68[facility] OprczxtZYUNNJCKYP8453-66-73 00:34:0033.8[facility] YqpmcpfDTOCHFBQTW0712-75-88 00:34:0091.6[facility] OkmjlpnORDAZMWBJW4898-27-31 00:34:0011.2[facility] WhuuorbFOWBLAXVZT7754-18-75 00:34:0033.3[facility] WPQISMYKKP3382-42-79 00:34:00* Test Item Value Reference Range Interpretation Comments MCH (test code = MCH) 30.5 pg 27.0-31.0 [facility] YzpkxokFUKQAFGDBK1836-90-64 00:34:000.5[facility] HermannHEMATOLOGY 2016-03-03 00:34:000.2[facility] RxuwfnsEIFDRQYNGH3804-45-24 00:34:000.1[facility] VturoaxOKLMAAZBEI8504-19-82 00:34:002.7[facility] BgrjlmkGAFOLKQKJC3836-56-91 00:34:000.9[facility] WinuqzuPPLWESISBC6943-87-29 00:34:002.6[facility] PBHDQWOPEM0606-24-98 00:34:008.3[facility] MedxsrlWXLSOSXIRX3302-49-22 00:34:00 43.4[facility] OhwmvhpCOGXWRDXAR0543-48-09 00:34:003.5[facility] HermannHEMATOLOGY 2016-03-03 00:34:0043.9[facility] ChalrnfALKTETDXGYTM0570-32-97 10:51:48654 [facility] UmbktbiSLKCSVNWCDHF9805-61-06 10:51:00437Uwiwnije HermannELECTROLYTES 2014-09-26 10:51:003.5[facility] DvdhnneZPLVPWOLRLQI2887-15-33 10:51:26859Adqfxyyw CjzehaqXIFMLTXMTWWK3632-04-80 10:51:0082[facility] AudiiasVLTEWFGYKOMO0441-39-05 10:51:0027[facility] GmbvjynTPCVHLYLFWDJ9375-54-60 10:51:000.7[facility] RXICVGKJSMHU2153-87-23 10:51:0012.5[facility] JjmejpqVFJZJHNODGTQ6090-91-61 10:51:007.9[facility] AyqsihsTSHFCFUDZUUG1164-39-27 10:51:006[facility] PGQDFADBJKPV0941-20-85 15:02:14852Wazcctgm EwsgwamIRJZBPWHVOHB6724-89-97 15:02:97335Sryjehnb RgvpcgiHEOQOGBILLWM0247-37-79 15:02:004.1[facility] CWBOYPVHGTXU2722-01-68 15:02:0094[facility] JnzhjfsFJNDRUIJYYGK0243-89-42 15:02:00 29[facility] YvhdmrsZJFZJRZMBKNH7003-16-08 15:02:000.3[facility] HermannELECTROLYTES 2014-09-23 15:02:73319Zzuapymy TvekubtVILOQLOEGPEY8383-58-55 15:02:003.4[facility] RijuwymYQBYJUKPVYPG7767-37-44 15:02:18555Yyeqpmwk XqteclmLAVOBNOFUYJT6518-85-21 15:02:005.6[facility] EuwawwcIPHVLRBENBNP4146-04-48 15:02:008.3[facility] RQYIAPINJGWZ7583-56-05 15:02:004[facility] KtvlpcrLEOCREYWFPCX9430-77-98 15:02:00 62[facility] LyrxsdaAVNBRQYDOYQS7211-76-62 15:02:000.8[facility]annELECTROLYTES 2014-09-23 15:02:0029[facility] JxenmrgRAQXZAGNPLQA8653-26-57 15:02:0012.1[facility] UovftopOJJYZTCTCQEW0762-81-15 15:02:001.5[facility] UwkoawvAJSPTLACKKWI0227-11-21 15:02:005[facility] MlrszydTHOSDBXPIDSW6901-66-45 15:02:002.2[facility] RHPFZHPZBS6782-24-20 15:02:000.7[facility] RooduxiZIGNBMVQET3994-76-57 15:02:000.3 [facility] YvbqjknPNPZHHTAIQ4605-64-98 15:02:001.5[facility]annHEMATOLOGY 2014-09-23 15:02:000.9[facility] AupnnkfCXMYRWOUFQ2701-18-61 15:02:0017.0[facility] TxrvlpjSAAIRNYFQC9121-01-76 15:02:001.4[facility] GcuaqmgXSYGJJWZJK7825-12-22 15:02:007.9[facility] QuqoyzdMFJSRXTGFI8059-75-61 15:02:0038.1[facility] ZNHHXXXLZG2650-99-86 15:02:0036.1[facility] RhgryztTKAGCDMXEM7798-10-78 15:02:00* Test Item Value Reference Range Interpretation Comments MCH (test code = MCH) 32.1 pg 27.0-31.0 [facility] PwsvzzjLXYXULJPBW1495-98-62 15:02:0033.5[facility]annHEMATOLOGY 2014-09-23 15:02:0095.9[facility] NlefrucSPLHFTQBLX8268-80-72 15:02:14512Svqgugah UrwuqoyKMMPTOHJBC6103-64-22 15:02:0013.5[facility] HezvqrwHBHRWNRJIH4688-05-95 15:02:0036.0[facility] FhinwkiVEARVQMDXV1668-15-99 15:02:0012.0[facility] AXMHXIFLPG6192-06-76 15:02:003.75[facility] TqklgkoOYUSTDNPDY2555-60-65 15:02:00 10.2[facility] LegodboWTPBOGYMID3185-88-45 15:02:003.8[facility]annELECTROLYTES 2014-09-19 09:38:0012.6[facility] XvbolrnMHBRALOTJCQI9250-14-59 09:38:001.3 [facility] HzsuaplYMLTGNGBKRDG0069-82-94 09:38:004[facility]annELECTROLYTES 2014-09-19 09:38:002.2[facility] MemzyamOVANZEXRMJNZ2005-14-17 09:38:003.6[facility] CzecodnQEPVMVONIVMM0812-33-05 09:38:66412Hrdstaho ZylgrjuDVCQRICWAWAX8628-87-01 09:38:008.0[facility] NsbcvbrQMWSPVGPGWQH4993-53-49 09:38:000.8[facility] JAWOJSMZEWGI2033-63-65 09:38:06648Tmqbycli RfeupymMOAXBWMSNYNT0905-59-44 09:38:0094[facility] EghzlbqCAOMUZVXKGMW1579-43-83 09:38:000.3[facility] PIBCLEZOEXHQ7776-95-14 09:38:65872Mwsilslo WxybzbmNNUZCNHHRXWB9217-04-05 09:38:0032[facility] WymywkuTZJVSTYEWEWH2076-97-79 09:38:005.1[facility] MDHLSGQARYHE2701-10-66 09:38:002.9[facility] FxadbjzYZIWHBKGXZQR1793-35-35 09:38:0024[facility] SracifgUDMGDKNMZCWC9952-58-36 09:38:12153Mwedtfkz [place] CGXVLMBRRSGQ9160-61-63 09:38:0097[facility] ImvhguaOELKWRRKIEOC8159-94-20 09:38:00 3[facility] QposkjaKXIBWHBZBT4470-37-86 09:38:0011.0[facility]annHEMATOLOGY 2014-09-19 09:38:003.41[facility] VwrlzwqSCMQSMCWEM8048-07-56 09:38:0096.2[facility] YwgwpyoMWYBKHHAGB7444-56-72 09:38:0032.8[facility] SrtaytmVDNUKNQTMV3266-34-39 09:38:00* Test Item Value Reference Range Interpretation Comments MCH (test code = MCH) 32.4 pg 27.0-31.0 [facility] NmrphzhCERKKJRNCE7717-13-35 09:38:0014.0[facility]annHEMATOLOGY 2014-09-19 09:38:0010.5[facility] UhkmbncEBQHOLLDXO2427-82-71 09:38:0033.7[facility] UajzzntGWDRGSCHQI8012-91-24 09:38:17712Tshncokz KyivtsoNPSHKFPFQF5977-94-25 09:38:004.1[facility] SgtrrzmFTJGLPYHIM3732-61-90 09:38:0051.5[facility] RFYPYZZUUJ9178-67-72 09:38:0027.2[facility] QhijazhSPWSVISCUY4509-35-72 09:38:00 0.6[facility] NvenswzYEQKKVAYTP4366-78-88 09:38:0013.5[facility]annHEMATOLOGY 2014-09-19 09:38:002.1[facility] FsxwavuHGXZNDSHQQ4365-07-75 09:38:000.3[facility] OgcrkhzATVUHTVELB7799-52-21 09:38:000.6[facility] ZffcgpoOCBZBZHMJK9816-52-58 09:38:007.2[facility] WxqaewaWBFEIKXPAJ0035-18-46 09:38:001.1[facility] HermannCHEM BBTFK4259-13-36 19:56:003.4[facility] HermannCHEM OMZWT7342-91-72 19:56:002.4 [facility]annCHEM NEUQF5365-53-65 19:56:001.4[facility] HermannCHEM PANEL 2014-09-18 19:56:68423Umuwzmet HermannCHEM UCFTC9940-34-02 19:56:0051[facility]annCHEM EAPNS3374-50-82 19:56:005.8[facility] HermannCHEM EOXIW0990-65-19 19:56:71347Bwewpiyx HermannCHEM DHVSN4557-70-00 19:56:000.2[facility] HermannCHEM FAUEL8305-33-50 19:56:005[facility] RwcktbiYZFIZBSRSE2731-21-69 10:00:007.1 [facility] TnfcmvhGLOZWMSWIR2735-95-07 10:00:0016.2[facility]annHEMATOLOGY 2014-09-16 10:00:000.3[facility] GpglgiwNDEPLYGNOM5962-67-07 10:00:000.8[facility] EqsmmxhYABCAQHOEY8237-67-70 10:00:0015.0[facility] UegxoweAEHDTHETKM0296-66-14 10:00:0060.9[facility] DvsbztiIDBIMKQRLI4321-98-40 10:00:002.5[facility] BCOTCFYMHG5435-05-42 10:00:000.7[facility] HzguzwaACWWUJSRYA3551-93-42 10:00:000.6 [facility] QvnxdthWPNZUPXEPQ1096-35-47 10:00:00Normal (09/16/14 5:00 AM)[facility] SkvtyboLNWDPHNOXN7327-38-87 10:00:00Normal (09/16/14 5:00 AM)[facility] QLBDXHYBJR6795-00-85 10:00:34283Vryximfc KufsmxdXPIWLJCUCT9656-17-23 10:00:00 13.9[facility] CxkhiemDLKYPEXJLE4418-59-51 10:00:003.42[facility]annHEMATOLOGY 2014-09-16 10:00:0032.9[facility] QqcasxvQJUEMSJLGB7098-05-69 10:00:0011.1[facility] SmpdrarMWOFQPVAXS5270-46-27 10:00:00* Test Item Value Reference Range Interpretation Comments MCH (test code = MCH) 32.3 pg 27.0-31.0 [facility] OtsspqzIFGNKVXNMH2266-46-80 10:00:0033.6[facility]annHEMATOLOGY 2014-09-16 10:00:0096.2[facility] FssiphtSYMZIRFLBE6393-43-81 10:00:0010.9[facility] OmmravfNPEVOAKUAX0513-55-17 10:00:004.2[facility] HermannCHEM HSZXV3679-44-69 11:17:38318Ogfnobfl HermannCHEM SWIFV9638-24-98 11:12:001.8[facility] HermannCHEM VTGRZ8432-23-75 11:12:003.9[facility] GihfdfoFPDBRFYEDV0282-11-39 11:12:00* Test Item Value Reference Range Interpretation Comments PTT (test code = PTT) 31.6 s 22.9-35.8 [facility] GdfzsceBZULWKIDHQ3287-03-72 11:12:00* Test Item Value Reference Range Interpretation Comments PT (test code = PT) 14.2 s 12.0-14.7 [facility] QrhssbsVCHGUZNJLN6554-20-35 11:12:001.09[facility] HermannCARDIAC ENZYMES 2014-09-14 04:03:30770Mxkxonhs HermannCHEM BCEXI8684-26-54 04:03:001.9[facility] HermannCHEM WWSJO7328-26-61 04:03:99245Tvxvjrqy HermannCHEM SUZPR8600-83-86 04:03:003.0[facility] HermannCHEM ZVDWM6492-63-00 04:03:0043[facility] FOFCUDQIEW8218-98-25 04:03:000.97[facility] YblfgcfKJSBQKEVOZ4597-23-75 04:03:00* Test Item Value Reference Range Interpretation Comments PT (test code = PT) 12.9 s 12.0-14.7 [facility] IkfvouzCFYYQMDLAZ3047-86-33 04:03:00* Test Item Value Reference Range Interpretation Comments PTT (test code = PTT) 33.0 s 22.9-35.8 [facility] FDHYS7573-75-73 04:03:00Negative (09/13/14 11:03 PM) [facility] CNHFV1287-80-21 04:03:00Negative (09/13/14 11:03 PM) [facility] PQCXW6587-11-36 04:03:00Negative *NA*(09/13/14 11:03 PM) [facility] BTLJE6239-97-52 04:03:00Negative (09/13/14 11:03 PM) [facility] RMQOL8468-51-29 04:03:005.0[facility] HBMFH9160-93-81 04:03:001.020[facility] BOENT0880-35-59 04:03:00 Clear (09/13/14 11:03 PM)[facility] OuylrlrBWEUZTIFOHIVX2382-12-72 13:31:464[facility]annCHEM DLNSU9003-97-81 13:31:0014[facility]CHE[facility] QFKMJ2573-46-04 13:31:001.1[facility]annCHE[facility] RTRSO5298-41-77 13:31:003.0[facility]CHE[facility] ZRZTV5173-64-97 13:31:007.9[facility]annCHE[facility] CGADM7615-70-74 13:31:0094 [facility] ODHLD0894-03-40 13:31:00<0.1[facility]annCHEM PANEL 2013-12-16 13:31:16012Vcpmliwx HermannCHEM MQAQU0079-11-47 13:31:006.4[facility]annCHE[facility] HJSHV1757-58-77 13:31:003.4[facility]annCHE[facility] OWZYB7735-53-31 13:31:000.8[facility]annCHE[facility] HMTBB4287-75-76 13:31:0011[facility]annCHE[facility] CFHID3172-90-42 13:31:85637Buttstrc HermannCHEM WKLKJ9530-22-00 13:31:99746 [facility] UYIBY3246-78-91 13:31:79176Bzgxvtln HermannCHEM PANEL 2013-12-16 13:31:80782Ukysliwv HermannCHEM FDJRY0871-14-09 13:31:0093[facility]CHE[facility] RALNR9340-08-79 13:31:005.9[facility]annCHE[facility] MSJMX9915-17-19 13:31:009.5[facility]annCHE[facility] JBGCA4481-65-47 13:31:0030[facility] AKMGYDJTBW7491-53-57 13:31:001.4[facility] LoxtiuyJXMRYMOXBZ6904-38-79 13:31:002.1 [facility] SlsdkgeYHYMNDIHZL0498-15-66 13:31:000.3[facility]annHEMATOLOGY 2013-12-16 13:31:000.4[facility] QwqawynOVLZNISPMF2292-64-23 13:31:0033.9[facility] HfhzcbxCAAEWDAYIJ7214-93-64 13:31:008.6[facility] OjlebgpKTKLVAKIXF8493-00-08 13:31:006.6[facility] YmkldewJANIMKRWCJ0469-64-79 13:31:000.9[facility] NCABMIOZPC8097-03-41 13:31:0050.0[facility] UccldviLDDEZLNRUL8427-48-74 13:31:00 10.1[facility] IssainiOLIJSWJMEX7393-32-06 13:31:0014.3[facility]annHEMATOLOGY 2013-12-16 13:31:74710Zbyasdzk SxasgpaBBANKKQZOK3119-74-74 13:31:0098.1[facility] HkreohfMJKITRHUPZ9063-79-89 13:31:00* Test Item Value Reference Range Interpretation Comments MCH (test code = MCH) 32.5 pg 27.0-31.0 [facility] CvsthacAQTAJXDYDL4310-48-18 13:31:0033.1[facility]annHEMATOLOGY 2013-12-16 13:31:0033.6[facility] QxonvqhCJMBZKNAHB4759-76-85 13:31:0011.1[facility] VnhwecsTNHPBYRHXN3379-05-30 13:31:003.43[facility] CdyqcerZQZXBPCJPI1528-90-65 13:31:004.2[facility]annCHEM HNZZP2515-73-90 13:54:0094[facility]annCHEM XKVMS5379-46-85 13:54:000.2[facility]annCHE[facility] GPBTJ5756-00-03 13:54:22380 [facility]CHE[facility] DHSMI7280-80-41 13:54:006.7[facility]annCHEM PANEL 2013-12-15 13:54:0030[facility]annCHE[facility] WOZDM4685-99-14 13:54:009.2[facility]annCHE[facility] TZYZF5758-26-52 13:54:003.7[facility]annCHE[facility] WMDXI3887-18-09 13:54:82608Wozfqvkv HermannCHEM DRZYU0361-33-72 13:54:89921Bsfddjqj HermannCHEM SKXRM1674-13-88 13:54:76569Wjqsauzs HermannCHEM CNQCM3734-24-34 13:54:005.2 [facility]CHE[facility] FBKSY1551-37-76 13:54:0013[facility]annCHEM PANEL 2013-12-15 13:54:0077[facility]annCHE[facility] CLPAG4826-66-22 13:54:69662Xegbwjba HermannCHEM GBSQR3498-80-57 13:54:000.8[facility]annCHE[facility] HBFGU5869-07-59 13:54:0016[facility]annCHE[facility] KVBPJ6641-39-07 13:54:0011.2[facility]annCHE[facility] KPODW2082-62-91 13:54:001.2[facility]annCHEM HGYCG0648-95-54 13:54:003.0 [facility] MfyhqyaXINQRTALPS7595-70-60 13:54:000.2[facility]annHEMATOLOGY 2013-12-15 13:54:000.3[facility] EppkdpxCABFPJLEZQ3239-55-51 13:54:001.8[facility] MvpycbxLLORSXCPOB6005-09-55 13:54:000.9[facility] JinhuagFODANJGGSQ2808-48-91 13:54:000.9[facility] LypvipsHVBOLKTQUN1219-00-53 13:54:006.9[facility] EETMOLETOK4807-20-80 13:54:0056.8[facility] PtonkcsFTYQNITGES4242-34-75 13:54:00 8.3[facility] UrexdsvNMAWDROHOR6641-35-66 13:54:0027.1[facility]annHEMATOLOGY 2013-12-15 13:54:0011.7[facility] ZfbgdvlNIABAJPYBX9952-05-36 13:54:0035.0[facility] DagbwuxGHEFRSUUDZ5337-60-28 13:54:12228Gelqalbj CyvgpzuSGKPDMXLGI5954-54-97 13:54:0013.9[facility] UtfutbdOQSAHNORAU9856-04-47 13:54:0033.3[facility] OKFYJRYWYV6945-80-47 13:54:0010.0[facility] BtyvzwbEZPIACFOTP2321-65-58 13:54:00* Test Item Value Reference Range Interpretation Comments MCH (test code = MCH) 32.7 pg 27.0-31.0 [facility] OnlqksaCDSBMNODHF1150-50-90 13:54:0098.1[facility]annHEMATOLOGY 2013-12-15 13:54:003.2[facility] DeolpmoEJQQUYMOJA8921-47-92 13:54:003.56[facility] MvczpkwJRUEHPYTQP2220-26-10 10:17:0098.3[facility] ZhfxzzxAWNSQSAIJG8104-14-78 10:17:00* Test Item Value Reference Range Interpretation Comments MCH (test code = MCH) 32.0 pg 27.0-31.0 [facility] XixhxjpKDJAQJVORX0199-18-15 10:17:003.70[facility]annHEMATOLOGY 2013-12-14 10:17:0036.4[facility] NufhqclJDMJTTKWGC9763-14-70 10:17:0011.9[facility] OgscgkpHHQCCYNWUJ5677-14-75 10:17:005.0[facility] JiosrsdLKSPSKPDIB2661-69-27 10:17:0032.6[facility] UukzgkoSMVGGTDLZH6585-08-96 10:17:0014.1[facility] MYGVIKDVZR5640-89-87 10:17:0010.5[facility] RrwkmxiITUPPISGHZ4968-01-87 10:17:00 219[facility] BfqfkcvPSRQSPOSTD9003-90-75 10:17:000.3[facility]annHEMATOLOGY 2013-12-14 10:17:000.8[facility] QeisvneQVUNHPLDOU2950-60-77 10:17:003.2[facility] NvxjsunJRRCRZJBPA5332-67-70 10:17:001.3[facility] JoprxlyECIMZAAYDN0101-57-37 10:17:000.2[facility] VbtadtzGPIGVRLZXM5023-85-49 10:17:00Normal (12/14/13 5:17 AM) [facility] YkrqoywGEEWTLRKYN4947-52-17 10:17:0025.5[facility]annHEMATOLOGY 2013-12-14 10:17:004.1[facility] WdfxblqGBKVOQMUUL0124-38-12 10:17:006.5[facility] YjyglewHULJMRVYTS2596-56-84 10:17:0063.1[facility] KycokaoGHQBMBVSKI1005-13-87 10:17:00Normal (12/14/13 5:17 AM)[facility]CHE[facility] VKJHB7086-82-20 10:18:54705 [facility]CHE[facility] VBUKB5661-47-69 10:18:000.2[facility]annCHEM PANEL 2013-12-13 10:18:40679Ozjbduoq HermannCHEM SNOCR4698-33-14 10:18:002.9[facility]annCHEM RDUUA0663-51-02 10:18:01868Lqnmginr HermannCHEM OWLBS6437-03-79 10:18:0011[facility]annCHE[facility] XFPBK1837-64-55 10:18:000.7[facility]annCHEM RCLTX6657-10-89 10:18:0027[facility]annCHE[facility] KHMJG5731-99-13 10:18:008.2 [facility]CHE[facility] QHFQI9847-23-24 10:18:005.2[facility]annCHEM PANEL 2013-12-13 10:18:0065[facility]annCHE[facility] ZKFYI7896-61-77 10:18:83311Dgbwxuip HermannCHEM BRCHG9053-24-46 10:18:004.6[facility]annCHEM VODYP7194-90-37 10:18:65873Xcctkjtn HermannCHEM EOBJB0648-18-48 10:18:0082[facility]annCHE[facility] JGJRX3612-62-41 10:18:0016[facility]annCHEM JMFOI7878-90-43 10:18:0011.6 [facility]CHE[facility] AXPSW0146-94-66 10:18:002.3[facility]annCHEM PANEL 2013-12-13 10:18:001.3[facility]annANEMIA LSKZN2517-96-86 10:10:0010.8 [facility]annANEMIA MLPIX3174-67-29 10:10:51358Qovxuqta HermannANEMIA STUDY 2013-12-13 10:10:45488Aiprmhue HermannANEMIA WMTNE9226-27-58 10:10:66505Txhgeuaq HermannANEMIA GMESN9499-70-86 10:10:15669Vfjxwgfz HermannANEMIA EGCXY1667-33-09 10:10:0030[facility]annANEMIA EAGSP4413-55-12 10:10:0025[facility] ANEMIA JTDTD1660-87-23 08:35:0031[facility] GseiowiLCFYJWVJJF3411-26-85 08:35:00 0.95[facility] CnpbwvqPPPDGOKYAC9785-67-91 08:35:00* Test Item Value Reference Range Interpretation Comments PT (test code = PT) 12.6 s 12.0-14.7 [facility] IQHDD0301-23-87 22:30:00Negative (12/10/13 5:30 PM) [facility] BOMTL8621-81-70 22:30:00Trace *ABN*(12/10/13 5:30 PM) [facility] QMFFV5536-82-48 22:30:003[facility] BHTYU2098-66-59 22:30:001.004[facility] FZWNN3875-44-48 22:30:00 Clear (12/10/13 5:30 PM)[facility] XVPBX4532-93-74 22:30:007.0 [facility] CLDMR2004-87-75 22:30:00Negative *NA*(12/10/13 5:30 PM) [facility] HGVIA3686-55-87 22:30:00Negative (12/10/13 5:30 PM) [facility]CHE[facility] LBOZM0470-13-93 18:40:001.9[facility] HermannIMMUNOLOGY 2013-09-24 12:14:00<0.4[facility] XZWFR5644-03-53 05:40:001.008 [facility] IYPWJ5041-48-98 05:40:00Clear (09/19/13 12:40 AM) [facility] UXKLO2874-81-44 05:40:006[facility] OPGEC1793-49-64 05:40:00<1[facility] WHWJR8951-96-30 05:40:002 [facility] HADGQ6838-15-84 05:40:00Small *ABN*(09/19/13 12:40 AM) [facility] UAIPE4443-22-07 05:40:00Negative *NA*(09/19/13 12:40 AM) [facility] OWTEL1288-57-39 05:40:006.0[facility] QKFEF5404-76-52 05:40:00Small *ABN*(09/19/13 12:40 AM)[facility] BQQDW1683-59-15 05:40:00Negative (09/19/13 12:40 AM)[facility]annCHEM PANEL 2013-09-19 01:58:001.3[facility]annCHEM IPLCI9938-85-68 01:58:003.1[facility]annCHEM LUTVX9172-07-73 01:58:0017[facility]annCHEM PDHOW6137-50-68 01:58:0012.5[facility]annCHEM QVZHM5183-05-62 01:58:45178Hfdqryld HermannCHEM CTNCI8020-86-87 01:58:0012[facility]annCHE[facility] FXACW7502-80-57 01:58:0090 [facility]CHE[facility] POHNJ3398-60-34 01:58:000.7[facility]annCHEM PANEL 2013-09-19 01:58:000.5[facility]annCHE[facility] KPTGR2204-19-75 01:58:30444Sobryitq HermannCHEM THGJG9285-08-39 01:58:86283Vjevidxq [facility]annCHEM QMBHS9292-78-93 01:58:008.9[facility]annCHE[facility] NHPOA8132-35-31 01:58:0025[facility]annCHE[facility] EXBGZ0589-66-57 01:58:004.0[facility]annCHE[facility] RAQEH9130-68-08 01:58:007.1 [facility]CHE[facility] ZWILC5496-59-29 01:58:38019Koojctej HermannCHEM PANEL 2013-09-19 01:58:003.5[facility]annCHEM OQPFE6557-76-75 01:58:15195Uktwqkqp HermannCHEM GQSDO9342-00-89 01:58:69594Kmjvpndo HermannCHEM CRVCY7889-38-74 01:58:001.9[facility] MgfststQQYNOWTAPH5465-60-98 01:58:97697Hqdfdsbk Shaun XVDOWIFIRV4679-41-83 01:58:0033.9[facility] SkndtbuWAZCZKCHXE6770-68-81 01:58:00* Test Item Value Reference Range Interpretation Comments MCH (test code = MCH) 31.9 pg 27.0-31.0 [facility] NdiyngpTYGUOEVOVO7290-14-02 01:58:009.0[facility]annHEMATOLOGY 2013-09-19 01:58:0013.7[facility] ZganlcnDJREDJSTQL5796-11-20 01:58:0035.9[facility] FrkxfomAGOSXTGWDZ6660-69-00 01:58:0012.2[facility] UwgfuzhJNAZSSMIYL1817-60-46 01:58:003.81[facility] SczdeomTMGVNFAJPG9110-61-87 01:58:0094.2[facility] VFTKCKFCSG5141-44-17 01:58:005.8[facility] FqnmcniHAVYORRNPQ9506-06-06 01:58:000.3 [facility] EvkyipeWNPHBPXKNH6344-78-17 01:58:007.2[facility]annHEMATOLOGY 2013-09-19 01:58:003.4[facility] PdddqxvODMCLHCPGU8545-08-53 01:58:0030.1[facility] QstpnmxFTEHTIXPQM4267-86-19 01:58:0058.4[facility] WzwuysiXBATTUMZTV1055-24-18 01:58:000.4[facility] VgegthwWTJTZPVACE2156-61-05 01:58:001.7[facility] RWVFWHTAEK3922-54-18 01:58:000.0[facility] GjzcbxtCCLVZVTPYM1682-09-93 01:58:000.2 [facility] YghrzzaIFCRLHMYOA0392-15-52 01:58:004.0[facility]annCHEM PANEL 2013-09-13 03:45:98175Lyeercze HermannCHEM KDOQX5922-72-10 03:45:0012.9[facility]annCHEM UDQHY7354-82-18 03:45:0027[facility]annCHEM EOVJO4770-68-71 03:45:008.6[facility]annCHEM PIHGT9047-58-95 03:45:000.7[facility]annCHEM BNLQS9537-36-19 03:45:88948Ehqbkqqo HermannCHEM YAJVP2056-14-92 03:45:009 [facility]annCHE[facility] BVBVI8909-85-43 03:45:003.9[facility]annCHEM PANEL 2013-09-13 03:45:92284Lxnycath HermannCHEM FAMYO8373-52-63 03:45:61520Cghzjslb SazhqniCCRLKPLEXNEU8532-60-74 03:45:003.6[facility]annANEMIA CRWXM6575-92-59 02:45:0041[facility]annANEMIA UUPZN3051-10-02 02:45:16146Tzqplgpr Shaun ANEMIA AJLVZ4713-38-26 02:45:0010[facility]annANEMIA EQBHM3845-92-45 02:45:00 374[facility]annANEMIA QMZHZ9722-14-70 02:45:18532Jdfmwude HermannBLOOD BANK AYUGZUK8775-79-92 02:45:00Negative (09/12/13 9:45 PM)[facility]annCHEM PANEL 2013-09-13 02:45:00<0.1[facility]annCHEM NVTJJ6701-11-96 02:45:001.9[facility]annCHEM ROXOI5158-24-29 02:45:005.3[facility]annCHEM MUXHL6200-02-04 02:45:0092[facility]annCHE[facility] XHHNR0334-81-34 02:45:0029[facility]annCHEM DWXVN6115-76-24 02:45:0011[facility]annCHEM FZYOZ8600-84-46 02:45:0063 [facility]annCHE[facility] WOTAY3623-67-96 02:45:0082[facility]annCHEM PANEL 2013-09-13 02:45:62897Rgedweqp [facility]annCHEM WTKZI9993-46-57 02:45:001.0[facility]annCHEM PGTTF8117-61-97 02:45:66945Goxsxcen [facility]annCHEM FWSQD4817-26-85 02:45:004.0[facility]annCHEM RCFWD5701-35-40 02:45:003.9[facility]annCHEM WVRAP0334-51-04 02:45:008.6[facility]annCHEM MAGGK6437-89-20 02:45:007.9 [facility]annCHE[facility] DLGXY1802-13-67 02:45:0013.6[facility]annCHEM PANEL 2013-09-13 02:45:0030[facility]annCHEM JQUVD4854-97-23 02:45:62673Rfqmqbaz HermannCHEM MMYZF3254-92-38 02:45:00See Note 1, 2(09/12/13 9:45 PM)[facility]annCHEM ANOUJ1362-32-44 02:45:99427Hgmdlkro HermannCHEM OCQBH7373-93-03 02:45:00See Note 5(09/12/13 9:45 PM)[facility]annCHE[facility] HPUML3171-96-91 02:45:00 See Note 4(09/12/13 9:45 PM)[facility] FxnprbpRWZSQISCQW3816-48-84 02:45:001.1 [facility] KxabdrgKPGZOGHBDZ2410-71-86 02:45:001.7[facility]annHEMATOLOGY 2013-09-13 02:45:000.0[facility] FyfdqhzMEEYDRQIXO7762-45-94 02:45:000.3[facility] IuxuwzhCWHKJAVGHQ5375-59-49 02:45:000.3[facility] XqfppnwHBKIWPMCNQ8229-91-39 02:45:0037.3[facility] JmneumjSMJKHDDEIK0169-86-68 02:45:0048.8[facility] RBOBVZPKKB3523-90-61 02:45:00Normal (09/12/13 9:45 PM)[facility]annHEMATOLOGY 2013-09-13 02:45:00Normal (09/12/13 9:45 PM)[facility] DimvwkdZYCEXXDHSY6034-51-79 02:45:002.3[facility] JmfswiaPGPBGIXYJS7907-08-20 02:45:000.8[facility] NFPMXWWUNL4694-25-70 02:45:007.1[facility] AylzukaXBXXNEZCPN8291-49-24 02:45:006.0 [facility] EsqeoziXYZZHFTHNA7377-00-79 02:45:00* Test Item Value Reference Range Interpretation Comments PTT (test code = PTT) 30.3 s 22.9-35.8 [facility] XazlkjzPBHXSFBNFV2136-01-84 02:45:000.96[facility]annHEMATOLOGY 2013-09-13 02:45:00* Test Item Value Reference Range Interpretation Comments PT (test code = PT) 12.7 s 12.0-14.7 [facility] GgcprhhZYWUUZPTZN1778-91-91 02:45:0010.5[facility]annHEMATOLOGY 2013-09-13 02:45:57004Hdehbruy PunjnlxQNZKEXGVYY5241-27-90 02:45:0014.4[facility] LdaxtzaNQAABTNRYH5399-70-08 02:45:00* Test Item Value Reference Range Interpretation Comments MCH (test code = MCH) 31.8 pg 27.0-31.0 [facility] VvufhplOIPDNUXMRD6328-12-73 02:45:0096.0[facility]annHEMATOLOGY 2013-09-13 02:45:0035.2[facility] FpkyeazAPXVAJJLPM8977-41-80 02:45:004.7[facility] YlcsdcvAGNIHRJDZV9554-95-69 02:45:0033.1[facility] DgqokdkXABKSVNVXJ9682-87-46 02:45:003.66[facility] AmyvuoiQWKUNRCSXB3184-41-99 02:45:0011.6[facility] URINE AND CBMMI3538-50-97 22:35:00Clear (09/12/13 5:35 PM)[facility] XWQRK2965-58-73 22:35:001.006[facility] WYICQ7982-55-81 22:35:00Negative *NA*(09/12/13 5:35 PM)[facility] OJQPL4210-41-38 22:35:00Large *ABN*(09/12/13 5:35 PM)[facility] WPLKS7699-47-40 22:35:00<1[facility] KORXC5804-13-46 22:35:007.0[facility] URINE AND SOGIU1776-30-52 22:35:00Negative (09/12/13 5:35 PM)[facility] IEWDW9541-97-06 22:35:00Negative (09/12/13 5:35 PM)[facility] USONX5356-28-53 22:35:0029[facility]UR[facility] TIBO3721-33-58 22:35:00Negative (09/12/13 5:35 PM)[facility]annCHEM AEYED8974-67-38 11:58:008[facility] CHEM PXBYO4466-45-85 11:58:002.4[facility]annCHEM ZBJYD7719-95-27 11:58:001.2 [facility]annCHEM WLVEG7408-26-28 11:58:74907Qyzgjhki HermannCHEM PANEL 2013-09-10 11:58:003.7[facility]annCHEM BIAZN6470-47-65 11:58:01657Kaxkfhyv HermannCHEM DMIBT7896-98-21 11:58:0020[facility]annCHEM QKNYU6940-68-58 11:58:0010.7[facility]annCHEM BRFOI2114-93-17 11:58:52881Ocquuuog HermannCHEM CCITO3448-37-88 11:58:000.2[facility]annCHEM ZPYTF1336-32-96 11:58:0029 [facility]annCHEM UMAUS0387-50-93 11:58:008.6[facility]annCHEM PANEL 2013-09-10 11:58:005.4[facility]annCHEM EQHNV6032-26-48 11:58:003.0[facility]annCHEM QKPUM7901-26-42 11:58:0095[facility]annCHEM IYEEO4968-84-00 11:58:000.6[facility]annCHEM MDNME6873-83-63 11:58:77895Illpkdlu HermannCHEM CZNTP8968-42-73 11:58:0081[facility]annCHEM AJSHP6110-95-84 11:58:005[facility]annCHEM LUHXL7886-32-64 11:58:00<0.1[facility]annCHEM DOQSP4448-12-29 09:28:83666Oyfijhne HermannCHEM UXNPA9441-29-44 09:28:0042[facility]annCHEM IYZBZ8854-06-89 09:28:35460Gtwrnxiy HermannCHEM TWVII3546-93-29 09:28:00<0.1 [facility]annCHE[facility] RXRTK3986-29-05 09:28:000.1[facility]annCHEM PANEL 2013-09-08 09:28:00>0.0[facility]annCHEM ADTEL0998-03-86 09:28:001.2[facility]annCHEM WDALZ5727-94-40 09:28:002.[facility] HermannCHEM AKNGO6176-78-51 09:28:003.0[facility]annCHEM UUUJT4826-74-28 09:28:005.[facility]annCHEM KUACM9993-96-29 09:15:63953Ksvzouhw HermannCHEM UMIPO4045-43-43 09:15:0031 [facility]annCHE[facility] QQEYY0248-01-73 09:15:29173Mcmxkvuk HermannCHEM PANEL 2013-09-07 09:15:002.9[facility]annCHEM XFXEG3654-53-53 09:15:001.2[facility]annCHEM OAEKZ0946-26-85 09:15:00>0.1[facility]annCHEM PWTCG3489-90-03 09:15:000.2[facility]annCHEM ZLHKI6871-81-20 09:15:00<0.1[facility]annCHEM THXYR8451-38-01 09:15:006.4[facility]annCHEM CJLBF6278-51-76 09:15:003.5 [facility]annCHE[facility] UIVPU2541-79-97 10:26:00>0.2[facility]annCHEM PANEL 2013-09-04 13:25:35057Stpezsps HermannCHEM BLUAL6766-28-10 13:25:83449Heflmuss HermannCHEM FPURB5524-29-80 13:25:0073[facility]annCHEM OTYRK3804-77-22 13:25:003[facility]annCHEM EGZIC9175-07-13 13:25:000.6[facility]annCHEM OEADZ5923-90-99 13:25:0011.1[facility]annCHEM AHYEL2330-33-66 13:25:005 [facility]annCHEM GBJMF8632-49-34 13:25:008.1[facility]annCHEM PANEL 2013-09-04 13:25:004.1[facility]annCHEM FVSEG6531-58-15 13:25:0025[facility]annCHEM OFYTS1245-17-64 13:25:94519Buhxletz PasbujmUEULLKBSLR9255-78-78 10:28:000.1[facility] XxfxrcrIBNXYFKNSJ3735-31-66 10:28:10855Ancgfbnw [place] EORUKMJMPT2652-13-79 10:28:00Negative (09/04/13 5:28 AM)[facility] LTTSPJFVYQ0102-02-46 10:28:00Negative (09/04/13 5:28 AM)[facility] GMQOKAAAEA7271-40-40 10:28:00<20.0[facility] LyrbrebMJSZMTSJPX3857-42-31 10:28:00 22[facility] HermannCHEM JJSJB2951-07-00 11:34:83898Vgtnqzup HermannCHEM PANEL 2013-09-03 11:34:56432Zcpltfwe HermannCHEM XEUOT9166-34-92 11:34:0027[facility]annCHE[facility] YSCBI5707-74-75 11:34:008.1[facility]annCHE[facility] NPCOR3867-50-98 11:34:006[facility]annCHE[facility] EOPBB1992-54-06 11:34:00721Nkzxoyfu HermannCHEM AGJYX9518-18-17 11:34:000.6[facility]annCHE[facility] FNVTB3743-42-44 11:34:004.0 [facility]annCHE[facility] SAVGW1727-59-50 11:34:0061[facility]annCHEM PANEL 2013-09-03 11:34:006.0[facility]annCHEM FLCMN7453-20-92 11:34:0010[facility] EsowszgAOLNUBRQGI2596-40-12 11:34:001+ *ABN*(09/03/13 6:34 AM)[facility] VQCELWQKUF6927-11-53 11:34:00Slight *ABN*(09/03/13 6:34 AM)[facility] TJDQWUEZCT6470-25-13 11:34:000.0[facility] YnhlaekCYBOKAGHKU0470-79-39 11:34:000.2 [facility] LntazlnTBOOZFGUQP0038-81-08 11:34:000.2[facility] HermannHEMATOLOGY 2013-09-03 11:34:006.3[facility] SpjwrqaPQYIEBDAQX7919-59-74 11:34:001.0[facility] VgoubfpJTBEPHZRWL3688-54-09 11:34:002.2[facility] WzqxrcpBRJWZERMEH2243-50-30 11:34:000.7[facility] BenwovrGLXKEVKYDA9017-05-85 11:34:0064.7[facility] ABCQTDQQQT7463-54-56 11:34:005.8[facility] CxjadxlCDVXNUPUMP8668-91-77 11:34:00 Normal (09/03/13 6:34 AM)[facility] CkzxuvmKXPEKTAPXM0061-07-84 11:34:0022.2 [facility] JtxrzzbGJLUWAJNPP8402-73-44 11:34:0010.2[facility] HermannHEMATOLOGY 2013-09-03 11:34:002.94[facility] ZbhrrjgRDSAFVCQLZ2260-93-63 11:34:009.6[facility] LwqzngeJDIPQMZIEN0041-41-30 11:34:0028.0[facility] AbmixlbQICZRTERFL5863-70-64 11:34:0095.2[facility] AmraxdtALFTXYCUML4884-85-35 11:34:00* Test Item Value Reference Range Interpretation Comments MCH (test code = MCH) 32.5 pg 27.0-31.0 [facility] XcxuslyPDRTLOPSCG4125-53-37 11:34:0034.2[facility] HermannHEMATOLOGY 2013-09-03 11:34:58979Ehhqfuad XaqtkrhXEDQXCWDJB3940-28-38 11:34:0014.2[facility] PbbooqiSMRQDMGFYA4504-37-21 11:34:003.4[facility] GrrumdvFLBYRCJNFV7157-50-25 11:34:00Negative *NA*(09/03/13 6:34 AM)[facility] TxevngxCHMEUXTKSZ0068-42-43 11:34:00Negative *NA*(09/03/13 6:34 AM)[facility] FjrhlwcFJVWXHJXAZ4265-83-93 11:34:00Negative *NA*(09/03/13 6:34 AM)[facility] VrmsdpfGFRCZFNHVX4146-10-69 11:34:00Negative *NA*(09/03/13 6:34 AM)[facility] QzmfrwwZSHBBVXALC4781-33-99 11:34:00Negative (09/03/13 6:34 AM)[facility]annCHEM TJFZC9062-98-77 05:53:00 170[facility]annCHEM HIOEG7928-45-19 05:53:0054[facility]annHEMATOLOGY 2013-09-02 05:53:0033.4[facility] PqyyhalMIGEJQNQOJ4024-80-43 05:53:008.5[facility] LsfljgmYCCUBMZCSI8236-39-65 05:53:0054.8[facility] FderyvgSKFXAOPLXU9598-39-37 05:53:000.1[facility] DnlimuzLIOTEZZAVK7764-15-72 05:53:000.0[facility] JXCEXBKORJ6641-52-93 05:53:001.7[facility] RbiizmyJVFBBAKFHG4196-19-60 05:53:000.4 [facility] YisiogrLSJYEDXMLS3223-21-73 05:53:000.5[facility] HermannHEMATOLOGY 2013-09-02 05:53:002.8[facility] DuexgrgTZSQJBZNRF6878-44-59 05:53:002.8[facility] EtcmybpJGLZEPODFE5995-27-00 05:53:0010.2[facility] AmfmyexMDGNQKANSD5195-81-63 05:53:33585Ranhkqga ObfvxkyUPMDEFUKFU1114-37-55 05:53:003.93[facility] QXBYKFWNBQ5524-52-65 05:53:0012.5[facility] NcdxedkHICJDCXEYD5959-61-17 05:53:00 5.0[facility] HmzrqpjHCUKXWLYYD0280-08-65 05:53:0033.7[facility] HermannHEMATOLOGY 2013-09-02 05:53:00* Test Item Value Reference Range Interpretation Comments MCH (test code = MCH) 31.9 pg 27.0-31.0 [facility] MqiyhmhEEGYSWSDSW7374-26-56 05:53:0014.0[facility] HermannHEMATOLOGY 2013-09-02 05:53:0094.6[facility] WpyzwtpQJTAMTAGBO1997-09-12 05:53:0037.2[facility] AND KSHFW4358-24-84 04:24:00Small *ABN*(09/01/13 11:24 PM)[facility] RKLMD2402-86-86 04:24:00Negative (09/01/13 11:24 PM)[facility] VYDIO1565-44-81 04:24:00Negative *NA*(09/01/13 11:24 PM)[facility] SSRWV6784-57-61 04:24:005.0[facility] STOOL 2013-09-02 04:24:00Negative (09/01/13 11:24 PM)[facility] STOOL 2013-09-02 04:24:008[facility] GSVUC6816-60-02 04:24:00<1[facility] VJTSB5153-44-76 04:24:001.020[facility] STOOL 2013-09-02 04:24:00Clear (09/01/13 11:24 PM)[facility] TPCI3336-31-42 04:24:00Negative (09/01/13 11:24 PM)[facility]annCHEM KUUJY2412-00-50 07:00:00 8.9[facility]annCHEM BVIPJ0863-76-12 07:00:000.1[facility]annCHEM PANEL 2013-09-01 07:00:69371Vnddeioa HermannCHEM VGCJR1364-77-03 07:00:72084Nlkyvytm HermannCHEM WDZVX3851-56-01 07:00:006.9[facility]annCHEM VZSTF6725-04-94 07:00:0025[facility]annCHEM NHRAE1532-31-30 07:00:83001Pacwjdjo HermannCHEM JVJKC8422-01-49 07:00:000.7[facility]annCHE[facility] TWWCD6414-89-80 07:00:45473 [facility]annCHE[facility] WXVMY3166-67-64 07:00:003.4[facility]annCHEM PANEL 2013-09-01 07:00:0012[facility]annCHEM IMFRH5527-75-42 07:00:82608Wkwwklkl [facility]annCHE[facility] TLOVD9395-81-46 07:00:0095[facility]annCHEM QJQAB7056-36-05 07:00:003.8[facility]annCHEM QBTEN5281-39-59 07:00:98311Skjhqtsi HermannCHEM SGVCI4631-68-91 07:00:0017[facility]annCHEM GLCBI4485-86-26 07:00:001.2 [facility]annCHE[facility] GUXUR4855-95-67 07:00:003.1[facility] HermannCHEM PANEL 2013-09-01 07:00:0012.4[facility] ItkawxxTWYXAIEYPF9320-94-42 07:00:000.2[facility] ZifozkyJSBDYEXEGP9854-63-37 07:00:000.0[facility] MwmrqzqSDEZAVWPMJ5864-53-35 07:00:000.7[facility] LzegfxrNZBGHKBGWH3069-99-32 07:00:002.1[facility] IVSPAODTWG0672-31-76 07:00:000.5[facility] BomchagLMBJTHBGKT7582-66-50 07:00:000.2 [facility] RamwfkfCXUCFWQMBT4544-21-72 07:00:0066.6[facility] HermannHEMATOLOGY 2013-09-01 07:00:0016.9[facility] ShhnogtLXSILMSISF3866-61-72 07:00:008.1[facility] UpwfwbdJXGBTMJLMZ8166-25-83 07:00:007.7[facility] XknyqsfGYWOSVWAPT2347-53-57 07:00:0033.6[facility] EcimrwcYDIQXPHWTI0696-22-76 07:00:00* Test Item Value Reference Range Interpretation Comments MCH (test code = MCH) 31.7 pg 27.0-31.0 [facility] EliubshHQARJTMSOH9011-32-63 07:00:94739Kkbsovjo HermannHEMATOLOGY 2013-09-01 07:00:0013.7[facility] OdegcwyLVTEKLUIIK8577-52-13 07:00:0011.4[facility] MjsobmnEIZUIKKDIY0799-23-35 07:00:003.58[facility] ImfytwfRKHICTLMSD0015-09-75 07:00:0033.8[facility] UikociyUEWWOQTOEQ5403-11-59 07:00:0094.3[facility] PCGUQCJPKO2560-16-90 07:00:0010.1[facility] AxgamveWGSQAYJWBK1725-92-09 07:00:00 3.1[facility] NnfbilmUJYYANZRSQ2411-39-12 05:53:00Negative (09/01/13 12:53 AM) [facility] UYJKI7327-23-62 04:50:001[facility] YFGWB6433-37-69 04:50:001[facility] ASFTI9865-77-76 04:50:005.0 [facility] LVOYG3274-34-32 04:50:00Negative *NA*(08/31/13 11:50 PM)[facility] EFVDP4936-43-07 04:50:00Negative (08/31/13 11:50 PM) [facility] SCDSB8667-60-28 04:50:00Trace *ABN*(08/31/13 11:50 PM) [facility] OTBYQ2771-86-46 04:50:00Negative (08/31/13 11:50 PM) [facility] GKNAQ6869-94-95 04:50:00Clear (08/31/13 11:50 PM) [facility] CQMSR4099-05-80 04:50:001.014[facility] XTBJ7319-85-22 04:50:00Negative (08/31/13 11:50 PM)[facility] [facility] 2013-[facility]-06 02:57:001[facility] KtrrgosZEGWDJHXEG1427-33-17 02:57:00Clear (06/05/2013 20:57:00) [facility] GlouulqCDPUBJRMLA6256-77-26 02:57:001.005 [facility] RmytjslDFQLDRFCDX2579-44-02 02:57:007.0[facility]UR[facility]ALYSIS 2013-06-06 02:57:00Negative *NA*(06/05/2013 20:57:00) [facility] CWHBZEFSHG5432-54-86 02:57:00Negative (06/05/2013 20:57:00) [facility] FVVCSBITGD9638-48-45 02:57:00Negative (06/05/2013 20:57:00) [facility] XRMXXZCGCQ3555-81-36 02:57:003[facility] KktmwxaHUEZAGHIEZ2965-88-67 02:57:00 Moderate *ABN*(06/05/2013 20:57:00) [facility]annVIRAL - GVQEWJBJ4048-23-73 02:41:00Negative (06/05/2013 20:41:00) [facility] - SEROLOGY 2013-06-06 02:41:00Negative 1(06/05/2013 20:41:00) [facility]annCHEMISTRY 2013-06-06 02:30:002.0[facility] QqinhvdXBVWHHNCY0369-38-53 02:30:0094[facility] PmetmlhFNERPRFHY4890-21-18 02:30:0018[facility] TjefdmrWUDZCJVQK3712-28-46 02:30:003.6[facility] OotgfpcSUTTYHPHE4504-04-59 02:30:0030[facility] RHKFXNFPL5414-14-70 02:30:86501Hbdbiejd QcniqllZPWMAQYBF3690-74-86 02:30:0052 [facility] OvgtrimQWBNTUKOJ4424-20-34 02:30:003.9[facility]annCHEMISTRY 2013-06-06 02:30:008.7[facility] TicqjkpFQDMSTEAA2975-34-52 02:30:80404Ptyjasvx JzydspaLEOCBJNNB1547-34-89 02:30:000.8[facility] PcjijycZAQYZKHUT9212-35-19 02:30:89136Uulgbuek SgiepyaVSLGQLTBV6414-91-46 02:30:0015[facility] XYNWAVETZ6632-37-49 02:30:44417Yvncnfrt ZmidrvxFTCGQXWDF3000-27-16 02:30:000.2 [facility] QxmzmeuNYAPRZHKQ5284-19-31 02:30:007.3[facility]annCHEMISTRY 2013-06-06 02:30:0019[facility] KybdhosOIQOGTVTI9210-68-90 02:30:009.6[facility] VkktfzgEGFYTVXHU5261-37-55 02:30:003.4[facility] OdcrnubPWGXEXSQB7308-16-63 02:30:001.1[facility] ZotowebIVMOEJHGZA4626-66-31 02:30:0025[facility] BHEXNEVQUK7068-03-86 02:30:0094.2[facility] JzccltcSYNPFDVDJJ2499-78-89 02:30:00 32.7[facility] LzewvjaTVWBPOACST0559-43-41 02:30:00* Test Item Value Reference Range Interpretation Comments MCH (test code = MCH) 30.8 pg 27.0-31.0 N [facility] YiwhddzWUAEHGJCRE2349-09-62 02:30:0014.2[facility]annHEMATOLOGY 2013-06-06 02:30:009.0[facility] KjhtudcFZWCZSAKVL1687-15-01 02:30:05621Hmpzwuby SwrvzpfSWYIQKMDUC4713-21-55 02:30:0012.0[facility] WiuoysgTQUYXYPYDJ5838-41-91 02:30:0036.7[facility] LvfzdzfJIIFMBFYWX8945-68-44 02:30:003.89[facility] HUZYEQKACD3423-75-31 02:30:004.2[facility] ZbonnezBPHPWEZQCW3492-76-87 02:30:001.9 [facility] DqhxbskLJVEMKEMMX0723-13-77 02:30:000.0[facility]annHEMATOLOGY 2013-06-06 02:30:000.3[facility] RuqtvxjDVNFUXYKPK1436-67-42 02:30:0043.2[facility] LcolqqxCDBTVTPUTY2726-55-68 02:30:002.4[facility] CrhkazvSXPGLJWBXG8130-02-81 02:30:000.1[facility] BpxlstmBETXSHTHMU6245-61-62 02:30:001.8[facility] CILMTAQHJR2109-11-54 02:30:000.7[facility] TkioxuhXCMVZBSKUX2236-23-91 02:30:006.8 [facility] SvvdhndQTGAKDWZJG2124-59-36 02:30:0046.9[facility]annCHEMISTRY 2013-02-12 07:36:00<0.6[facility] AlzoolwAPDQJMRLG1554-67-64 07:36:00<0.02[facility] RtwwakoGPKXUSVHP8975-49-34 07:36:00<0.5[facility] EkvcdclHHMUTBGEX4271-31-95 07:36:0088[facility] WhxhsckOEGJKNMKF7672-78-30 04:40:00<0.6[facility] ZTKSUCLHU7356-23-42 04:40:00<0.02[facility] WsdjatjFHUFEJQIX8628-99-69 04:40:0086 [facility] SmglvepCQWRMUUXS6498-38-81 04:40:00<0.5[facility]annCHEMISTRY 2013-02-12 04:40:0094[facility] DbkvubaEZWFFDQLS3313-27-17 04:40:003.3[facility] WoomdsbJFTIONHJD2778-79-15 04:40:001.3[facility] FfenefvUZCVRYRNY6024-48-93 04:40:0015[facility] CzbfemxYSRFJTBBF9482-32-18 04:40:0012.8[facility] OKVDMTUJC6821-23-41 04:40:93128Wnkoapcb WiylbfaOOUVIVMNN0873-30-57 04:40:000.3 [facility] YlncdjeLDEKGVFKS1916-60-33 04:40:0014[facility]annCHEMISTRY 2013-02-12 04:40:000.8[facility] CxqwqcrCKAADHSRA6993-70-83 04:40:0081[facility] TrntjumEICFPQWQU6966-51-45 04:40:0012[facility] BjymkaaGVELSJULB8461-52-57 04:40:007.6[facility] RpdgpdqJQETQMMHI5094-93-76 04:40:004.3[facility] ELSBUNROX5494-12-41 04:40:0028[facility] NosyozyPJJKXQNSP4864-76-41 04:40:009.8 [facility] VkaxfvvCSZKCJVQH3324-57-48 04:40:0050[facility]annCHEMISTRY 2013-02-12 04:40:49314Yircoikr AnurdzuOEMLGMAEO0077-24-73 04:40:82474Dmgdjaul CcotkbrMKAAQDJBH4927-92-24 04:40:003.8[facility] TcicadePXBFJFTWFL4531-46-15 04:40:000.0[facility] QcjfdgnNDJYSSUDVT5565-92-81 04:40:000.1[facility] ACICYEGKLE8283-53-79 04:40:002.2[facility] BnykfcyGOSFCDHXHR6792-57-50 04:40:001.9 [facility] RckgqweMEUSPXVWWA2961-98-81 04:40:000.3[facility]annHEMATOLOGY 2013-02-12 04:40:007.1[facility] KdtieyhOGGUPEXDPC7761-35-68 04:40:000.6[facility] YgslqdpYNYLWUNTMR0072-81-11 04:40:001.9[facility] FeotoctMAWVHWMLGG3366-80-45 04:40:0044.8[facility] OaltadkRNYFLDHUIE6182-80-56 04:40:0045.3[facility] WEYVORLCEY6552-62-22 04:40:0032.6[facility] WbqijdtSDADQYADZD7808-91-09 04:40:00* Test Item Value Reference Range Interpretation Comments MCH (test code = MCH) 31.0 pg 27.0-31.0 N [facility] FxxbycmRPVYTPAZHY9435-96-17 04:40:0014.3[facility]annHEMATOLOGY 2013-02-12 04:40:47995Lfqtaggs TmvaxvyDMYTPPDNMR3840-60-42 04:40:0010.0[facility] BgichjgELCOEXARQU4291-65-40 04:40:004.3[facility] AgxlghcWVOGXTDGDO2991-50-58 04:40:0012.5[facility] WbvjquxHIRWUJSBRS1521-15-94 04:40:0038.2[facility] PFVQMXKTZX4357-16-19 04:40:0095.1[facility] PajgovgKYFQRJDRJM0563-39-31 04:40:00 4.02[facility] VwhevdoNKGAPYHKQE5117-38-31 01:54:00Occasional /LPF *NA*(02/11/2013 20:54:00) [facility] AyjboesTLREPRRZPB2748-73-71 01:54:00Few /HPF *NA*(02/11/2013 20:54:00) [facility] ZjlkjstOGIYUFBSHB5219-27-62 01:54:007[facility] KZSSXBTFSB1689-44-35 01:54:001[facility] ObsdmyfLVIWZBIXMA6271-82-36 01:54:00 Negative mg/dL *NA*(02/11/2013 20:54:00) [facility] KmscwazQFAZUMKBTC4206-19-01 01:54:001.010[facility] YvhwenqPUNJYHRKKU4705-11-31 01:54:00Trace mg/dL *ABN*(02/11/2013 20:54:00) [facility] NeprditEOIIQWQEJQ5902-05-32 01:54:00 Negative *NA*(02/11/2013 20:54:00) [facility] YsptmhrGWLVNXOQGM3108-06-01 01:54:00Negative (02/11/2013 20:54:00) [facility] NlmyktbYNPXHANZJO4274-66-94 01:54:00Large *ABN*(02/11/2013 20:54:00) [facility] QtyycqpHSSWDSNKSV0893-32-07 01:54:00Negative (02/11/2013 20:54:00) [facility] RzkwsbeNWJZUVFRHP4040-03-54 01:54:00Negative mg/dL (02/11/2013 20:54:00) [facility]URINALYSIS 2013-02-12 01:54:00Clear (02/11/2013 20:54:00) [facility]URINALYSIS 2013-02-12 01:54:005.0[facility] MrmwqklPPVQGYPHXT3820-56-88 05:45:000-2 /HPF (09/28/2012 00:45:00) [facility] MkdlfdmNACBDTRGWD0554-57-45 05:45:00Performed (09/28/2012 00:45:00) [facility] YmnmcoyPRUDRMJQQK2698-51-19 05:45:00Small *ABN*(09/28/2012 00:45:00) [facility] TgiyfywKTNTELCOQO6380-33-19 05:45:00Few /HPF (09/28/2012 00:45:00) [facility] EvbgnojIVKQSHYJWW4560-58-48 05:45:006-10 /HPF *ABN*(09/28/2012 00:45:00) [facility] XlizgnfHYDKFSVNYF9593-74-46 05:45:00 Few /LPF (09/28/2012 00:45:00) [facility] FtqqvsfAAUYRKTDXF0297-06-20 05:45:00 Negative (09/28/2012 00:45:00) [facility] HwycwntNGCGIWNREI5683-49-91 05:45:000.2 [facility] YhadurcUMWMBDMMMG0345-80-78 05:45:00Negative (09/28/2012 00:45:00) [facility] MkqwknuSJGMDHADYR6434-62-62 05:45:00Negative (09/28/2012 00:45:00) [facility] VtjdtxoEROYXTLVTF8038-04-11 05:45:00Negative *NA*(09/28/2012 00:45:00) [facility] ToazitpQFIZLEBOEJ0117-54-66 05:45:00* Test Item Value Reference Range Interpretation Comments UA pH (test code = UA pH) 6.0 1 5.0-8.0 N [facility] WrhcwraXPJAHXKLQZ5257-11-14 05:45:00Negative *NA*(09/28/2012 00:45:00) [facility] LdxcuvcDOVYCDUCPA7400-13-63 05:45:00Moderate /LPF *ABN*(09/28/2012 00:45:00) [facility] YjcrfszFBAPEMFDUF7332-10-91 05:45:00Negative (09/28/2012 00:45:00) [facility] OevboadYDVYQWMIKN1439-74-48 05:45:00* Test Item Value Reference Range Interpretation Comments UA Spec Grav (test code = UA Spec Grav) 1.020 1 N [facility] GmiadzoWSHKGOSOIV2463-84-57 05:45:00Slight Cloudy (09/28/2012 00:45:00) [facility] ZsoapecGOIGVIUVAS3546-20-43 05:45:00Yellow *NA*(09/28/2012 00:45:00) [facility] YstarnkFMFUXGUYE7881-62-65 01:58:294.3[facility] HermannCHEMISTRY 2012-09-28 01:58:291.7[facility] VvqsdhaUURHKDTUD5992-98-24 01:58:2995[facility] TupjkpvVXNJUBKEN5871-01-27 01:58:2912[facility] CfcluqyVYIOUKGSV2875-45-58 01:58:2994[facility] RgedvrlKLGDGHLML7644-04-89 01:58:2931[facility] UFOIFYNIX9497-49-35 01:58:21032Xeebshqs SdauhhuKWYBVIGCW0778-31-55 01:58:290.8 [facility] QcnobygECGKROMGY3365-04-49 01:58:74732Stygtypt HermannCHEMISTRY 2012-09-28 01:58:294.6[facility] OkxhztaGWRKUROIH1025-89-59 01:58:299.7[facility] CsbjeabZUASKEZWL3186-02-15 01:58:2911.6[facility] CqhoifgWZMBUMMWPY0946-19-83 01:58:290.1[facility] RljsxnoXNZYKDOUPU9553-91-03 01:58:290.3[facility] HQZZGNCHPY3055-99-45 01:58:290.1[facility] XlktldmDOQQEFYMOH3106-35-95 01:58:296.6 [facility] LfewovrLYMZEJWJGD9625-05-26 01:58:2944.0[facility] HermannHEMATOLOGY 2012-09-28 01:58:2946.4[facility] AgkwxocLKQZPBOBCH6624-40-15 01:58:292.1[facility] LusexmqAQPAPXNOGN3073-37-84 01:58:291.3[facility] PclidmxWTLECVMHUC0444-76-26 01:58:291.7[facility] EvcejklGUIEFNOVCH8908-35-78 01:58:292.1[facility] KVQTBRSQJY8253-58-26 01:58:2995.6[facility] HypygreRGQJFUSMDP5137-18-72 01:58:29 3.79[facility] UkhivqpIQQPOQZZOT0665-58-95 01:58:2912.2[facility] HermannHEMATOLOGY 2012-09-28 01:58:2936.2[facility] HmnxjynKZPSSRAFKN9603-26-40 01:58:294.7[facility] NvegxnjFWFZNOZAJU8153-73-25 01:58:299.5[facility] AmgtvmaIIPPCOMUNI5878-34-45 01:58:2913.1[facility] OkmbgtdCSSJPBOVXS4452-00-70 01:58:71774Rnmmcjvp [facility] PYXMWFHKTD6920-26-16 01:58:29* Test Item Value Reference Range Interpretation Comments MCH (test code = MCH) 32.1 pg 27.0-31.0 H [facility] YzulysbOKXYYKOBHH5530-90-46 01:58:2933.6[facility] HermannCHEMISTRY 2012-08-10 11:04:003.7[facility] FsveymsUAEEQPGZL0152-74-21 11:04:006.3[facility] FpwnlsxNWVHVZPBD4879-53-50 11:04:0035[facility] JifogjhMPQUCGSOP6694-87-06 11:04:000.3[facility] EgjxzaeTFVVBGXXH3257-15-62 11:04:0015[facility] LLBHAGLPA4085-76-99 11:04:0081[facility] YrqowwzJDMISEYSL1376-12-38 11:04:00<0.1 [facility] QzdezzdFISTXPWCB4557-47-63 11:04:002.6[facility] HermannCHEMISTRY 2012-08-10 11:04:001.4[facility] LuydhmmRSNYVOCMK6958-77-86 11:04:00>0.2[facility] XprclziHJCAZDYQHZ4472-92-16 11:04:000.4[facility] OwwthvaDQYJHWVCDY8034-28-60 11:04:000.0[facility] EaeovnfZTGQHQDONY4574-37-71 11:04:000.4[facility] ZJYKEGLCVD5512-08-32 11:04:000.0[facility] XkumolbOJRECZHLRU4711-21-04 11:04:00 20.8[facility] XgqcxphBNCVCODRAU1413-82-79 11:04:0070.5[facility]annHEMATOLOGY 2012-08-10 11:04:003.2[facility] DhbcvixDMJULEBCWH5786-60-26 11:04:000.1[facility] FbyfkmzVMLGMABJWY1298-89-13 11:04:001.0[facility] PqhydbrZXYTNAVRFC7188-56-44 11:04:008.2[facility] QzycleuWIMWOAJEKC4789-34-35 11:04:009.6[facility] ZVNQRTYNTF4224-09-57 11:04:0010.3[facility] AksadooRZOVCQTXCA0288-79-99 11:04:00 3.27[facility] JfrjwwhZDOCDEDFYX1580-79-41 11:04:0032.6[facility]annHEMATOLOGY 2012-08-10 11:04:0012.7[facility] PrnqfrfOUUYPCSBJP5401-76-26 11:04:89047Poerxtrs ItdkxtpGUBXIQXNVP2859-75-71 11:04:0031.7[facility] FjlpmpbGBCFJUNDND9598-09-53 11:04:0096.9[facility] CsgkekmOHNQJYLBWU1374-28-83 11:04:00* Test Item Value Reference Range Interpretation Comments MCH (test code = MCH) 31.6 pg 27.0-31.0 H [facility] GrmdjppLHBEHZBWFF4483-29-77 11:04:004.6[facility]annCHEMISTRY 2012-08-09 11:03:45714Jqjjvhxa SpvggogNAPNPMHMN1034-59-23 11:03:003.2[facility] AcskqisWLJVVJGLE8927-57-87 11:03:005.5[facility] HheqovzHIWBFJUTC1629-66-25 11:03:008.4[facility] FemwjhlHMPVWWNAE9504-91-73 11:03:000.4[facility] NMAKZTJVT1974-32-75 11:03:0070[facility] FyskjzuHWNIDGWLC5100-75-15 11:03:0022 [facility] PxcozhmBARGRRHNJ7620-85-98 11:03:006[facility] IykcgzoMKVWZLNWP9830-45-68 11:03:000.7[facility] JwuldybZWDGCEIEC8368-30-72 11:03:0032[facility] OPCZYRXVV9078-53-80 11:03:0083[facility] FkfobyxNFXLJWXDV9424-24-02 11:03:002 [facility] ThvovzdZXYUBXZWS5136-95-26 11:03:14855Sskyqgne HermannCHEMISTRY 2012-08-09 11:03:003.8[facility] EmgxczcVHINIPOJW6868-34-16 11:03:73690Djtacuvh MfvwktfYVSMQSFSX1678-36-30 11:03:003[facility] TamxfylFNBEWROXY8121-42-16 11:03:00 10.8[facility] DnzbqbgSEHACSIBW2436-91-02 11:03:001.4[facility] HermannCHEMISTRY 2012-08-09 11:03:002.3[facility] UleqksuLKCUMTHIN1436-37-40 11:03:0096[facility] TjhnsnyDGLWHYGTY9780-73-71 11:03:0026[facility] HvustgpQUQHHYRPHB2799-15-09 11:03:009.1[facility] TyjvtupVSKUXGQSEV6330-06-05 11:03:23224Ndruacia [facility] GIDZNDLOZG4359-60-58 11:03:003.3[facility] YnplwcdUUVNCYGBSW8488-21-48 11:03:00 3.06[facility] XrtvdebAGVSESNGWF6678-54-40 11:03:009.6[facility]annHEMATOLOGY 2012-08-09 11:03:0012.7[facility] EcmujajLBKVLWAGUQ7193-46-73 11:03:0032.4[facility] ZwgytlsIVUMCQCULH6609-45-73 11:03:0029.6[facility] TooggpiQBPMEJRXTP8179-63-21 11:03:0096.7[facility] UazrcdtMGOKOCEJAA5374-87-14 11:03:00* Test Item Value Reference Range Interpretation Comments MCH (test code = MCH) 31.3 pg 27.0-31.0 H [facility] PhosltiPCBMYIMBOI0940-95-95 11:03:000.0[facility]annHEMATOLOGY 2012-08-09 11:03:000.2[facility] HktrowpOIJGYCNMUH7127-42-92 11:03:000.4[facility] ZeecntbMCFJOYGJDK7149-72-03 11:03:001.5[facility] BdccsziRYFMQNDZHP6879-56-34 11:03:001.3[facility] IzpdwnlIOCQXUXMMA3760-55-94 11:03:000.7[facility] YFWZZESPCL0987-19-02 11:03:0044.5[facility] MqviagvZATIJNEZQQ9268-84-82 11:03:00 10.8[facility] LptezwdNYWMMAPEEE2325-92-14 11:03:005.3[facility]annHEMATOLOGY 2012-08-09 11:03:0038.7[facility] CcmhbajPMAFRTHTA7114-77-48 13:00:36Negative (08/08/2012 08:00:36) [facility] QsvtdizOCDXRFRXR1245-58-29 21:00:000.2[facility] UuhijfeFAXCNJCWE1490-10-72 21:00:0014[facility] BnztxliRGQNEDTYU6960-64-06 21:00:007.3[facility] OjennhiWDZDSKMMN1205-70-17 21:00:0028[facility] SFVYUPCVQ0883-61-01 21:00:0043[facility] BqyiniyYCXRRQEBY4184-44-19 21:00:0095 [facility] DqfvrcmXJTIHVTJP0691-43-24 21:00:0095[facility]annCHEMISTRY 2012-08-06 21:00:49680Oksvwqpo OxmcoioYGZETGGGV1951-16-36 21:00:000.8[facility] YqsvjfyYEVTTUDBS1558-30-89 21:00:0010[facility] KruvljuMVEILYHGE5331-44-44 21:00:0087[facility] WqjgowcEFADZURBC7427-89-04 21:00:003.5[facility] VKIALJZPD8833-33-90 21:00:004.2[facility] VestyidYUPFZDACS0493-61-38 21:00:77821 [facility] GqxhdupANEXOKDOJ7825-32-55 21:00:008.9[facility]annCHEMISTRY 2012-08-06 21:00:003.1[facility] MohfbuyGRWWPESXI5912-20-52 21:00:001.4[facility] TjcvxylALGSYNWLX7779-35-40 21:00:0012.5[facility] FxviujrLTWAQNIDH1019-87-72 21:00:0012[facility] EjmlizzBOJYNGACHP0772-30-26 21:00:000.0[facility] HGOBFJIBYU2495-98-98 21:00:001.7[facility] BwreswrHDYAIRVYLG5613-46-72 21:00:000.3 [facility] InhtzqpRDXHKTMLWX8892-02-25 21:00:000.1[facility]annHEMATOLOGY 2012-08-06 21:00:002.4[facility] ZatbsuhSYWOZIVIUQ7564-02-38 21:00:000.5[facility] YujsqoaPQKOFJWMOY2406-56-51 21:00:002.0[facility] PzwoaocSAZKHHBPAK7138-31-35 21:00:0041.8[facility] MoeiralCWEOMCREEH5892-52-05 21:00:0048.4[facility] HWDHXBTFCN0263-08-10 21:00:006.9[facility] EozkmruWTWGPKTBZA9544-70-20 21:00:004.0 [facility] VuwkzswKYXNJPLFKY2598-58-13 21:00:009.0[facility]annHEMATOLOGY 2012-08-06 21:00:55328Qnhqlere ZzmbvqrONFDJWLVSH3830-59-05 21:00:0013.2[facility] AkvmumxCXSSCUPCTK1526-56-08 21:00:0035.0[facility] IgzvnubYRIDGRVDFJ5316-15-89 21:00:0011.4[facility] VehyxwtXGQHCLGQRY6692-24-71 21:00:003.65[facility] NDTIRFYCAI4810-44-90 21:00:0095.8[facility] LujfojcRONSCZZCJQ2029-82-08 21:00:00 32.6[facility] FhywovqMWUKMSYMCJ8537-28-88 21:00:00* Test Item Value Reference Range Interpretation Comments MCH (test code = MCH) 31.2 pg 27.0-31.0 H [facility] GojlqdqLTOBSPTKS8397-16-56 22:35:007.4[facility] HermannCHEMISTRY 2012-07-17 22:35:003.1[facility] JjipbefOQXLXIJAH1102-31-76 22:35:001.4[facility] VhovysdMIWZCQCNB7793-02-61 22:35:000.2[facility] RyagnwtIHGOLHXOL3485-47-13 22:35:62137Gkaapvqw DhzrrgfFDEKRWSEC0886-68-12 22:35:0045[facility] DDVZZIGKC3411-92-55 22:35:71964Xieotmir RtlfrusXBYVUBSYI5653-68-09 22:35:0083 [facility] KmyvzydBXEPSIUIZ1565-54-73 22:35:003.9[facility]annCHEMISTRY 2012-07-17 22:35:009[facility] JawzxpdHGQQYMSXE0446-85-97 22:35:004.3[facility] IvwoeigFSSLDXFKA5711-03-58 22:35:0015.9[facility] KivjcyeEWBDHKOSO4938-90-56 22:35:009.2[facility] PgbauuoZDTYXISOP8588-06-66 22:35:79428Vzbybyzg [facility] HROYQNBRK3795-35-91 22:35:0025[facility] EplwiemQMXAPESDY1968-37-76 22:35:51356 [facility] FkhykxzKYXFYHHAG5468-20-01 22:35:000.9[facility] HermannCHEMISTRY 2012-07-17 22:35:008[facility] CuyhtahHBSEPELSZ6576-61-95 22:35:0085[facility] LrxhbnbAAHYNBWYR9366-25-94 21:00:00Negative *NA*(07/17/2012 15:00:00) [facility] HvuyqrgDIDRJTLOT6297-82-24 21:00:00Negative *NA*(07/17/2012 15:00:00) [facility] TmmzagyFBKSIDFUQ1115-16-13 21:00:00Negative *NA*(07/17/2012 15:00:00) [facility] JwpeoraXYWZKFQDA3425-94-04 21:00:00See Note 3(07/17/2012 15:00:00) [facility] JvquhydISDWYYJJP2379-13-31 21:00:00Negative *NA*(07/17/2012 15:00:00) [facility] GcxtxlfWLHAXRKPO4000-02-38 21:00:00Negative *NA*(07/17/2012 15:00:00) [facility] EpdoljaQTYYSIBEQ1901-23-61 21:00:00Negative *NA*(07/17/2012 15:00:00) [facility] [place] TmsbntlDEDKJLETT7596-91-17 21:00:00Positive *ABN*(07/17/2012 15:00:00) [facility] WxcujauPSMWHOEKHR8776-10-16 21:00:009.1[facility] WflyeqhGNJRSNVPHY9956-96-25 21:00:41500Pslosegr TfiubcyUYBUCTOSIQ1231-47-36 21:00:0012.8[facility] QXPIHIKBTW6088-84-81 21:00:0032.9[facility] BwhhammINGBTBZPYD5825-29-82 21:00:00* Test Item Value Reference Range Interpretation Comments MCH (test code = MCH) 31.3 pg 27.0-31.0 H [facility] WutmbsmBLBPDJDUVR6546-91-73 21:00:004.0[facility]annHEMATOLOGY 2012-07-17 21:00:0011.7[facility] LnohvxfXWEMSTBNIJ4305-04-03 21:00:003.73[facility] QvqxieeYSSCHHAMWB3246-92-28 21:00:0095.0[facility] GbcdcmcOHGOTPHDXE3185-37-40 21:00:0035.5[facility] NciliglTHBNGEBRVO4832-28-37 21:00:0054.9[facility] XBKPTRCGFZ5324-17-85 21:00:002.8[facility] PxzmzbsJZFSHBBDCJ3803-34-33 21:00:007.0 [facility] YoajvfmNYLIQVPLQB6826-47-42 21:00:0034.7[facility]annHEMATOLOGY 2012-07-17 21:00:001.4[facility] HhcqnraAWZPMFWNUR7831-10-42 21:00:000.1[facility] KosuqqiYCTYIVMGLT9174-74-01 21:00:000.3[facility] QskmydvROUZNKDQNF9090-35-91 21:00:002.2[facility] GldsgfcPJGLAGHFOG4185-45-12 21:00:000.6[facility] ROFMYVHYMB3347-30-57 21:00:000.0[facility] NqgqsnrONLIRXBJH7667-48-49 07:22:00 Negative (07/16/2012 01:22:00) [facility] GbhuwnqQOMALOZNGL2152-47-67 06:05:00 Negative mg/dL (07/16/2012 00:05:00) [facility] SfdfopvEMFPUJQBHY5755-72-58 06:05:00Negative mg/dL *NA*(07/16/2012 00:05:00) [facility]annURINALYSIS 2012-07-16 06:05:00Negative mg/dL *NA*(07/16/2012 00:05:00) [facility] YTWQTEUJDM7970-13-81 06:05:001.003[facility] YrvqnnqZOTZKQSOKZ9234-95-58 06:05:00 7.0[facility] LftdxllAMLFEAREDH2661-41-48 06:05:00Clear (07/16/2012 00:05:00) [facility] SvhtmuqJVZQMHBOWU5164-38-37 06:05:00Negative (07/16/2012 00:05:00) [facility] BwmylsfYQZGMJPCJD8573-06-19 06:05:00Positive *ABN*(07/16/2012 00:05:00) [facility] YjeawycUANQZUMCIQ4370-31-81 06:05:00Negative *NA*(07/16/2012 00:05:00) [facility] UcuupheENHMGHGXUP7293-29-63 06:05:00<1[facility] HermannURINALYSIS 2012-07-16 06:05:00<1[facility] HmnrtprAHYITXNQIV5606-67-82 06:05:00Negative (07/16/2012 00:05:00) [facility] RwqfsvxVHEWQMFOU3102-95-89 05:53:33816Qboxazji QduuwjxJLUYCKOFE4327-71-25 05:53:0095[facility] DwsrhrlWCOHTGRGZ8592-39-70 05:53:004.0[facility] KrjmvrnFCZNAOHQV1993-96-96 05:53:0030[facility] BQKFGMPCR1173-22-74 05:53:008.9[facility] OigiyhsFKEGDABYS4544-96-95 05:53:009 [facility] QwkcbpnPHREPDTYG0521-99-27 05:53:90351Owkvvewo HermannCHEMISTRY 2012-07-16 05:53:000.8[facility] IjjifnjUCVAMTVXM0507-40-30 05:53:36488Dzdtwdkn JfhdfisDSRSFNRGV4490-71-93 05:53:004.0[facility] RzfdvnaYJPOWPKIL8584-93-09 05:53:0092[facility] YswlllxDUXUTDHHV0191-37-73 05:53:007.2[facility] RBXJADVWB1511-32-41 05:53:28785Xjoasphd IpqapcwENDPOBDPT9604-12-77 05:53:0098 [facility] BzejocrUTGXWWZYJ6545-43-34 05:53:000.2[facility] HermannCHEMISTRY 2012-07-16 05:53:0065[facility] QwnhdppYRMYLNOGV4150-75-40 05:53:0011[facility] QfyjrskLPYTILKOA3121-68-72 05:53:0012.0[facility] AcubbxmAXYQJWRHL9159-79-51 05:53:003.2[facility] UzedhvqAHEVJMFHT7256-17-45 05:53:001.2[facility] ZEURTAWAHL6950-37-81 05:53:001.4[facility] NgyxvqrZMNVUZIPLC1630-92-96 05:53:001.6 [facility] OsodiwdAXJHGNTISA1446-97-89 05:53:004.1[facility] HermannHEMATOLOGY 2012-07-16 05:53:000.6[facility] LfsbjtxNCPUFWROBS2417-45-59 05:53:009.8[facility] WihocyiMSSGBINEEV0995-56-90 05:53:000.1[facility] EraubmhDGWSYLRKII9741-95-35 05:53:000.4[facility] VniaxxeURUTVNOOSW0742-32-20 05:53:000.0[facility] VUULEHERPH6135-28-05 05:53:0039.4[facility] ZwtxmksPNKGQEZGKM0485-28-61 05:53:00 46.1[facility] XsblchtDWEOVHXGCD5524-76-68 05:53:82127Fmuuhauu HermannHEMATOLOGY 2012-07-16 05:53:0012.9[facility] BqpmdaoODSZULOPWO0248-43-74 05:53:008.4[facility] RmqcrpwDMWPOTAYWN8273-56-03 05:53:0096.2[facility] AactdcbUNALQYFMHF5276-40-03 05:53:003.6[facility] HkjnsneVZWXIQOJGH4087-57-15 05:53:0032.6[facility] LRHZYMRZRS7990-86-93 05:53:00* Test Item Value Reference Range Interpretation Comments MCH (test code = MCH) 31.4 pg 27.0-31.0 H [facility] [place] AdtcrkpANAJMGALDE2481-92-88 05:53:0033.4[facility] HermannHEMATOLOGY 2012-07-16 05:53:003.48[facility] VubbdupZBZOCHWIZX7061-88-80 05:53:0010.9[facility] HermannBEDSIDE GLUCOSE JYQMKWW7666-56-11 18:07:0068[facility]annURINALYSIS 2012-07-09 19:30:52Negative mg/dL (07/09/2012 13:30:52) [facility] VBOSHNAJGG4477-05-26 19:30:52Negative *NA*(07/09/2012 13:30:52) [facility] [place] ExzriakOPJVUQFWTU7861-17-63 19:30:52Negative mg/dL *NA*(07/09/2012 13:30:52) [facility] [place] BuunkqzAYXUVIJQTI4405-04-44 19:30:52Negative (07/09/2012 13:30:52) [facility] [place] WaxfrevFMUTUJXWAV3011-28-26 19:30:52Moderate *ABN*(07/09/2012 13:30:52) [facility] [place] NewyioqBQOMLYQNRN0295-93-96 19:30:52Negative mg/dL *NA*(07/09/2012 13:30:52) [facility] [place] AgyvgefGCUCZLWQYK4851-28-40 19:30:52Trace *ABN*(07/09/2012 13:30:52) [facility] [place] BlolmbyKVPTPHHWBG0342-35-97 19:30:521.005[facility] DVSOKCIGHG3067-54-40 19:30:52Clear (07/09/2012 13:30:52) [facility] OPQKPAPHEQ1483-26-36 19:30:526.0[facility] HermannBLOOD BANK MODIBLW6544-80-11 19:04:00Negative (07/09/2012 13:04:00) [facility] [place] TcgtnpoAPIDLZBFE7993-33-27 18:58:0012[facility] PggnwvwYBLQUUOWN6314-45-16 18:58:0012.5[facility] [place] FPMNLDXEY7851-99-06 18:58:001.3[facility] EajcuokWYTIGAWPA1315-35-31 18:58:003.0 [facility] XmgzxibCDCWCSFNR3333-11-64 18:58:0073[facility] HermannCHEMISTRY 2012-07-09 18:58:003.8[facility] KnocylwJBABADMSV2366-67-94 18:58:009.5[facility] VwsrkskLIIAQAAZJ7149-61-29 18:58:48851Njxhfnmr SpagjnuRBGYUOOKI7972-93-35 18:58:0031[facility] SiybylhMWGFAMAYE9691-58-83 18:58:24819Ckpblbto [facility]un FHDVQZISH8077-11-29 18:58:001.0[facility] FjaiyyhEHMIMCKBE6667-14-66 18:58:005.5 [facility] IebhkojQZCVAVMWG7305-86-85 18:58:0012[facility] HermannCHEMISTRY 2012-07-09 18:58:0084[facility] BkzvmyqZJAGWKMGD8567-42-68 18:58:006.8[facility] JgpfoeiPQIOFVDAR6242-48-03 18:58:0092[facility] LzigdqbOZJWIYLPD2797-72-29 18:58:000.2[facility] BvlzzcjSIKIGHKOI5362-54-51 18:58:0044[facility] HUIQIWAIH8205-73-22 18:58:0013[facility] AmjjedwUGKLFTMNMS3289-21-72 18:58:000.2 [facility] GerghudYWNNCTGVKT7044-22-90 18:58:000.3[facility] HermannHEMATOLOGY 2012-07-09 18:58:004.7[facility] MjjqgkiRWCMPWTRYB8193-52-63 18:58:0010.2[facility] DruehonGANBWTJEXG1974-92-09 18:58:0050.5[facility] RzwqvfiQSRLEPXNVZ5660-30-28 18:58:000.0[facility] ZbcvhytZNHNLBEBKY1837-61-36 18:58:000.3[facility] CMBCPLXZOM1703-12-73 18:58:001.7[facility] GzixzafRMVAJKVRYU0467-27-77 18:58:001.1 [facility] ShfypokHKICEDXRMC7389-64-32 18:58:0034.3[facility] HermannHEMATOLOGY 2012-07-09 18:58:003.35[facility] AmucxizAYPMCWLHKA3921-36-94 18:58:0012.9[facility] CtdqrzbECAJPVPAKN9229-90-16 18:58:00* Test Item Value Reference Range Interpretation Comments MCH (test code = MCH) 31.7 pg 27.0-31.0 H [facility] IdnhofmEBDLJGATMA8672-64-57 18:58:10490Carahngu HermannHEMATOLOGY 2012-07-09 18:58:0032.5[facility] NukancwOBIGTWJQQF3067-29-06 18:58:0097.4[facility] CeflqcgJYJCWNPKID5939-63-35 18:58:0032.7[facility] WfbiwglDUBVAQZRRO8313-79-40 18:58:008.9[facility] YfgujtnWFBSOXFZEJ4616-53-74 18:58:003.3[facility] GJMQCJYCPN1150-06-94 18:58:0010.6[facility] MpuqeofYMMSWUXQAL1748-99-13 07:50:00 1.009[facility] IjonkatPAROSGZKJG6969-28-72 07:50:00Clear (07/08/2012 01:50:00) [facility] PaowfznLKOVXKMARR9419-81-74 07:50:00Positive *ABN*(07/08/2012 01:50:00) [facility] SnjwunkZDSENWULQX0812-92-41 07:50:00Negative (07/08/2012 01:50:00) [facility] JoirsxqUHKTUQLLQC5224-41-37 07:50:00Negative (07/08/2012 01:50:00) [facility] WgcnoaeQNHIOAITBL4067-81-95 07:50:004.0[facility]annURINALYSIS 2012-07-08 07:50:00Negative *NA*(07/08/2012 01:50:00) [facility] FIFKSSNMAC3391-26-30 07:50:00Negative mg/dL *NA*(07/08/2012 01:50:00) [facility] GsppmzsZFDKHZSQBG1312-56-10 07:50:00Negative mg/dL *NA*(07/08/2012 01:50:00) [facility] JfhveebIJQVKSGDJA0240-54-27 07:50:00Negative mg/dL (07/08/2012 01:50:00) [facility] XaylaibVWXOOWXPHQ9561-41-09 07:50:006.0[facility] PAKPXEZEZ0191-92-44 06:55:0083[facility] TqgyztsWCNJLLSTB3336-71-40 06:55:003.6 [facility] TakbdblGBOHCBGGB5149-91-21 06:55:51388Ttmvbmcy HermannCHEMISTRY 2012-07-07 06:55:000.9[facility] RtuyqjxCZDFAHGBB7252-63-44 06:55:0014[facility] GydqtraYVHJWEMJC2398-19-02 06:55:0088[facility] UcgkgamXCYPUGHJT0206-14-81 06:55:0067[facility] JukspgeWVWLGWGED2127-13-13 06:55:003.5[facility] RXLPDWVMW2870-23-01 06:55:001.2[facility] SmyzbzrCBXMJPTZA1534-00-26 06:55:008.6 [facility] XejczqaEWHNCUPNI7212-67-79 06:55:0016[facility] HermannCHEMISTRY 2012-07-07 06:55:0012.6[facility] IhrgnyjUEMKBEEAK2406-30-51 06:55:004.1[facility] QjphchlIIVUTIYBI7914-07-37 06:55:007.6[facility] LtodxhbQXETLEGIA9414-67-82 06:55:48976Vfhsexqo RsnrwshXSZKXOUTF3928-21-68 06:55:0031[facility] TCOPUIDIE0861-77-63 06:55:000.1[facility] KczbxzvTTRBTAQIO9443-73-25 06:55:0028 [facility] XhxghxfDJBOIRMCX1779-62-30 06:55:81096Kdsrvnge HermannHEMATOLOGY 2012-07-07 06:55:09970Nkknskbj XfmiikqCIEEBBJDJA2354-74-94 06:55:009.5[facility] QoglpfpCAHRSMZEBR6860-81-90 06:55:0011.0[facility] ItbaigoXLQZCJGPTY5368-24-10 06:55:0095.8[facility] LugnjeeEUMNXBBMWP9635-68-18 06:55:00* Test Item Value Reference Range Interpretation Comments MCH (test code = MCH) 31.6 pg 27.0-31.0 H [facility] KmkzmxiWSSMDSRMZD1788-01-72 06:55:0033.0[facility] HermannHEMATOLOGY 2012-07-07 06:55:003.3[facility] ZxugezhWWMPTDMJWY9268-83-26 06:55:003.47[facility] PcvgujpDQFNJLXBXI5556-80-83 06:55:0013.1[facility] NfzmvrbNAOVJRWEHL5858-70-72 06:55:0033.2[facility] UldjgreXBAYDWNEHX3179-70-52 06:55:0039.4[facility] ATTQFLTJJQ7444-60-94 06:55:000.1[facility] LqqodhjWSKIZKAYDG9166-88-06 06:55:000.0 [facility] UgppucmCWWDFEHSIN0681-74-73 06:55:0012.7[facility] HermannHEMATOLOGY 2012-07-07 06:55:0044.6[facility] GjxqsgoQWTDCZTSMF6666-05-53 06:55:002.7[facility] CmjwuukGQXMJZRSTS1770-13-27 06:55:000.6[facility] AbnyueaKHSBZFDRLW0769-10-22 06:55:001.3[facility] SiyfvmsNPUZVPTGOO2150-63-26 06:55:001.5[facility] DJNZYMWPCJ6979-93-07 06:55:000.4[facility] WhjuwheOFEWGSBVE2547-19-39 05:36:00 Negative (07/06/2012 23:36:00) [facility] GjmdrdhLXCRSAWJAO4196-89-72 05:36:00<1 [facility] ZoxprvaNIEZLEOFTY3504-06-87 05:36:00<1[facility] HermannURINALYSIS 2012-07-07 05:36:00Negative mg/dL *NA*(07/06/2012 23:36:00) [facility] GGFBKHVMHD5846-79-76 05:36:00Negative *NA*(07/06/2012 23:36:00) [facility] CosapsaQEQBVEENMQ7401-36-91 05:36:00Negative (07/06/2012 23:36:00) [facility] AqtavlgAFQFSJWEQQ0941-56-32 05:36:00Negative (07/06/2012 23:36:00) [facility] PstgcoaUGKZSUHALZ9848-50-87 05:36:00Negative (07/06/2012 23:36:00) [facility] VziqtqtIOZTVHFCZZ4625-88-53 05:36:006.0[facility] VzlouyiUDUGPEOTUO6561-95-47 05:36:00Negative mg/dL (07/06/2012 23:36:00) [facility]annURINALYSIS 2012-07-07 05:36:00Negative mg/dL *NA*(07/06/2012 23:36:00) [facility] QJLDJJWZNR1623-39-24 05:36:00Yellow *NA*(07/06/2012 23:36:00) [facility] JDIXVVZCNW3223-76-95 05:36:00Clear (07/06/2012 23:36:00) [facility] IZXSINXWNX2902-67-03 05:36:001.006[facility] JpbvzxrRZEDHPTHGP2889-41-20 14:30:00 Yellow *NA*(05/31/2012 08:30:00) [facility] EeqkytlTMCMURPQBG3735-89-53 14:30:00 Clear (05/31/2012 08:30:00) [facility] BshoieuPOOCVOLHSU2689-42-75 14:30:001.016 [facility] BbjustjZTXCZTPDIW4809-53-09 14:30:00Negative mg/dL (05/31/2012 08:30:00) [facility] EzpejxiAMQHJZHHCW7605-21-54 14:30:00Negative mg/dL *NA*(05/31/2012 08:30:00) [facility] IlbyooxYVPSKTDSMT6570-63-48 14:30:005.0 [facility] OdgslxbRWPRWRJJDS0660-77-35 14:30:002[facility] HermannURINALYSIS 2012-05-31 14:30:00<1[facility] YacwllsOLQCTWAUYH7215-60-98 14:30:00Few /LPF *NA*(05/31/2012 08:30:00) [facility] NfsdmxaTRNSJBSPVI2352-76-53 14:30:00Negative *NA*(05/31/2012 08:30:00) [facility] KzopitgHAHKSEFESL4043-77-50 14:30:00Negative mg/dL *NA*(05/31/2012 08:30:00) [facility] VizugryWCNHHDHFNE7233-96-60 14:30:00 Negative (05/31/2012 08:30:00) [facility] CuouwhyWSWUQDKJEE3890-13-11 14:30:00 Negative (05/31/2012 08:30:00) [facility] WrzmgvhHWAHYABAEL4167-23-47 14:30:00 Small *ABN*(05/31/2012 08:30:00) [facility] NlntfqmNJESRCWVNN1763-01-18 14:30:00 Occasional /LPF *NA*(05/31/2012 08:30:00) [facility] BlhmihuQWMLPVZLN3953-57-46 14:03:00<0.5[facility] QssakqdSYTYSYWOJ9239-52-26 14:03:00<0.02[facility] BELNTGNXF7714-45-86 14:03:0017[facility] OxzjkcdUNEVJMKIZ1239-38-40 14:03:002.9 [facility] BfmlsbxMJHBSFEVF9632-29-14 14:03:000.2[facility] HermannCHEMISTRY 2012-05-31 14:03:001.5[facility] HfdwyygYCEZHROTT1390-43-00 14:03:0086[facility] ZpzqncsMLPSKRYJM6774-14-41 14:03:0061[facility] LehtrhbTYBTKYYRJ1480-10-82 14:03:007.2[facility] GdgonyzHCAQLIXYE0774-47-08 14:03:0083[facility] ZLFTPWBAW3464-30-39 14:03:0014[facility] XjkfotbJBZJLLFYU5496-28-57 14:03:004.3 [facility] LxkqdtjWZVFBZYKM1395-31-84 14:03:0011.5[facility] HermannCHEMISTRY 2012-05-31 14:03:009.0[facility] LwcmpawBRMGDVPEM6346-82-66 14:03:0028[facility] IsvbydqUFIHKEQIE1545-93-09 14:03:61555[place]ido LyrxtrbMTFLYARCH2524-86-51 14:03:14828Afhwidkk IufobwoIOEOYQTPO4433-67-52 14:03:000.9[facility] SYSORRLEU1391-76-81 14:03:003.5[facility] QayiwhcXNTGXQDVW4867-19-70 14:03:15034 [facility] FnukgtgIRDRYFHRC3174-10-21 14:03:0013[facility] HermannCHEMISTRY 2012-05-31 14:03:0074[facility] HnuxltuGRQLJFXXN7403-27-28 14:03:00<0.7[facility] VauhgjxEPSOHEXXGB5126-80-15 14:03:000.93[facility] HtwrcjdUHSQTETBFE1974-88-93 14:03:00* Test Item Value Reference Range Interpretation Comments PT (test code = PT) 12.7 s 12.0-14.7 N [facility] RikyiqmWKTHUBZJDH7443-51-87 14:03:0012.7[facility] HermannHEMATOLOGY 2012-05-31 14:03:00* Test Item Value Reference Range Interpretation Comments MCH (test code = MCH) 31.9 pg 27.0-31.0 H [facility] BlyqzhjUVHOGBEINN4543-21-20 14:03:0033.0[facility] HermannHEMATOLOGY 2012-05-31 14:03:003.83[facility] WkfvktpMHNCLUIRQW7863-66-84 14:03:0012.2[facility] AfzvompWZXGKAQTXV9160-38-13 14:03:0037.0[facility] TdycrnsSFIMLOCBIQ2859-27-40 14:03:0096.6[facility] JlkkgblYHXUUGUCQW2695-70-32 14:03:005.7[facility] UUBGQKQIYZ9056-64-43 14:03:88472Nhwyutba NdnuebhRGDBGZTOSS5069-85-82 14:03:009.6 [facility] JfehvagCRPHCBIMDD9616-08-37 14:03:000.5[facility] HermannHEMATOLOGY 2012-05-31 14:03:003.3[facility] HoqinmmLZKAUJCGBI2504-40-38 14:03:0058.7[facility] DveurgpRRDXLDWLZK3810-03-39 14:03:001.9[facility] GitljxvSGWTPMIAKQ6343-73-96 14:03:0033.6[facility] IstuoytLQMDBEUZPJ3349-18-83 14:03:000.3[facility] YKHCPSEVFW6670-19-27 14:03:005.5[facility] IhyrcseKGMXQZYNZI2904-59-62 14:03:001.7 [facility] ZsdmczuLJKLYBSYHR6858-91-70 14:03:000.0[facility] HermannHEMATOLOGY 2012-05-31 14:03:000.1[facility] YtrjnjpCFEGKPWJS7423-78-85 20:43:000.2[facility] NsdsbjiILQAMBVSG8155-42-96 20:43:0017[facility] GpbsstyDFXUFHXVS4790-32-62 20:43:0077[facility] UnnunywKTGCJASBC5620-71-81 20:43:006.9[facility] GEGXHSXIH6950-79-70 20:43:0049[facility] OjxavoxKPMXYEUMG1238-52-08 20:43:0095 [facility] FzjewycOLMRZQVPR5245-33-79 20:43:008.6[facility] HermannCHEMISTRY 2012-04-08 20:43:003.9[facility] JtgexefIGMAVPKRY6710-91-36 20:43:0028[facility] TgtrznrNJEBNNOKW7762-87-39 20:43:67640Qjtqhqmf AbqdugaQRELFEFYU2274-62-56 20:43:0085[facility] IulqwpaPJDCZSYZR3699-29-86 20:43:000.8[facility] RKIVFDINN4661-65-25 20:43:004.2[facility] GxmwiecYKDNUVSBK3300-92-93 20:43:04248 [facility] SjffdkxDWKCVTILR4976-55-46 20:43:0015[facility] HermannCHEMISTRY 2012-04-08 20:43:001.3[facility] GmhsmqnFNSBMOYIC8664-16-82 20:43:003.0[facility] TgmpmhsIHMKCHVZW0976-73-94 20:43:0015.2[facility] ZlyehkuUMVOFSJLA8235-46-64 20:43:0019[facility] TtnohoxXKLVQHWPMC9943-24-71 20:43:000.0[facility] FPFOOXISWZ6621-12-55 20:43:000.1[facility] AclxuvfMDRHGGAIAL1842-34-23 20:43:000.4 [facility] SdqnhmfOMILCZFTJX6749-94-92 20:43:002.4[facility] HermannHEMATOLOGY 2012-04-08 20:43:000.6[facility] HphpeyuPCCZGXSLGX6191-76-99 20:43:003.1[facility] HemuvuvRMXETMOBTL7000-88-47 20:43:001.6[facility] LmdackgWDMIYAHMHU6151-80-78 20:43:008.6[facility] JkltosbUPDMYGOWAN2220-57-49 20:43:0052.7[facility] BUYEHADKLM5335-96-41 20:43:0035.0[facility] DddhkglNYYDQFFCIE8421-84-30 20:43:00 257[facility] PvlqbzhWKELEMNAQJ5811-45-36 20:43:0012.9[facility] HermannHEMATOLOGY 2012-04-08 20:43:009.2[facility] WnewfsjORMOVMLHIH8343-58-19 20:43:0011.9[facility] BjhwfaaDVPLMYELFJ2385-85-94 20:43:003.64[facility] NfbdcapKHBPAIKYNY5414-60-68 20:43:0035.3[facility] VuuelszMCDFVGUJFV6310-21-69 20:43:0097.2[facility] YRBYICBXTA8200-88-23 20:43:00* Test Item Value Reference Range Interpretation Comments MCH (test code = MCH) 32.6 pg 27.0-31.0 H [facility] HxdeyxqEJKHMHFPXT4925-08-60 20:43:0033.6[facility] HermannHEMATOLOGY 2012-04-08 20:43:004.5[facility] IuzmxepNLSZVCCPL5026-18-37 03:46:00See Note 4(01/24/2012 22:46:00) [facility] MesrodzMCDMGMFAN2327-42-30 03:46:00Negative *NA*(01/24/2012 22:46:00) [facility] NgqwxqkKMBFRYZIE3630-58-34 03:46:00Negative *NA*(01/24/2012 22:46:00) [facility] TnyqdytWGZQYFQZX7439-04-61 03:46:00Negative *NA*(01/24/2012 22:46:00) [facility] JtvjjpkYBMAKRMYT2900-97-97 03:46:00Negative *NA*(01/24/2012 22:46:00) [facility] ZxsxxrvXTWGFMBNS3197-63-83 03:46:00Negative *NA*(01/24/2012 22:46:00) [facility] OsxpvtrMBIOZNEDJ3316-51-18 03:46:00Negative *NA*(01/24/2012 22:46:00) [facility] JfubajkNZWLKSAGP5301-93-35 03:46:00Positive *ABN*(01/24/2012 22:46:00) [facility] YtsqwlpXFEHAYEEXF3773-87-90 03:46:00 Negative (01/24/2012 22:46:00) [facility] OehearmRCPJGLJZZV7858-25-55 03:46:00 Negative *NA*(01/24/2012 22:46:00) [facility] HegjntsOJHXRQSBEU7802-02-39 03:46:00Negative mg/dL *NA*(01/24/2012 22:46:00) [facility] HermannURINALYSIS 2012-01-25 03:46:00Occasional /LPF *NA*(01/24/2012 22:46:00) [facility] UVVOUZXRYX3820-29-20 03:46:00Trace *ABN*(01/24/2012 22:46:00) [facility] AOGRZVLGRO5176-85-94 03:46:00Negative (01/24/2012 22:46:00) [facility] PBVIKBRZSN2129-77-09 03:46:002[facility] OeyvuloZUMGSLPKVF2782-63-43 03:46:003 [facility] FvayupgTDACXJGAEH6485-27-09 03:46:00Negative mg/dL *NA*(01/24/2012 22:46:00) [facility] VkbfensAXMRMYLAKZ7502-52-65 03:46:00Negative mg/dL (01/24/2012 22:46:00) [facility] LaawkqmFQVIPLDGJY6354-91-61 03:46:006.0[facility] ItdkkzaTHQZQNYOMQ4803-94-92 03:46:00Clear (01/24/2012 22:46:00) [facility] EbwwbiqZKUKWMUIIT8765-25-34 03:46:001.002[facility] HermannBEDSIDE GLUCOSE TESTING 2012-01-25 03:45:69735Rshzsmya FasvqpwNZGVVDWYC1825-60-30 02:46:003.1[facility] LklgtexZHMJKCCWV6802-29-22 02:46:001.4[facility] YxovrlpMXMJYMDVU3546-56-72 02:46:0014[facility] TgpctkxRRGTFZBCH5354-79-84 02:46:0013.5[facility] SHYBZBJNR6047-33-47 02:46:0076[facility] AeyoqzpWGKJOHHGW9106-20-00 02:46:007.3 [facility] KtxxmbjMDBTJWFGA3815-77-35 02:46:0045[facility] HermannCHEMISTRY 2012-01-25 02:46:0095[facility] JpykojpPAVZFYYLY6745-70-34 02:46:000.2[facility] QcefqpuBQCPYAJRG8105-41-53 02:46:0079[facility] HdgdvlyRRUXCITXE2094-51-07 02:46:0011[facility] XndlwcxNEOTKMZFT7910-27-19 02:46:000.8[facility] DLNYRJFUF0713-41-14 02:46:66995Ogzttcpk GmzhadxPRFBDKUPH6996-18-18 02:46:0026 [facility] PqagnldTOGMPFJJP3249-85-13 02:46:66625Dssgiqug HermannCHEMISTRY 2012-01-25 02:46:003.5[facility] NrapxlzYWMVLIRCG7895-16-62 02:46:009.1[facility] MtkfgcbJUNBWCYAQ7270-83-95 02:46:004.2[facility] LdoosgqJZFPZPXTNS0217-02-12 02:46:000.4[facility] SdwwzyfBWWEHHQQLA8648-42-55 02:46:004.1[facility] VDQJYPDBGK7008-14-34 02:46:002.2[facility] QenvlmhQSSDRVKBIN1970-55-97 02:46:001.4 [facility] IujwqaaZHNYTAKMAW0630-40-67 02:46:008.5[facility] HermannHEMATOLOGY 2012-01-25 02:46:000.0[facility] ItqblgkHDZNSHRCKO6088-33-36 02:46:000.4[facility] SgtnjayPMRRFDYYSZ7124-48-83 02:46:000.2[facility] IjafctlPPPJEKGGCA0084-05-54 02:46:0034.7[facility] IpdtrwvAUQYFISHYB9378-73-40 02:46:0052.3[facility] UGEPQLKXMO4940-67-74 02:46:003.72[facility] SjjunyfYCZKJCKPXN7447-94-14 02:46:00 95.6[facility] KynviskOYWLSBIFUR6207-84-51 02:46:0035.6[facility] HermannHEMATOLOGY 2012-01-25 02:46:0011.8[facility] DsfdjcoIHFZVNXDIR3448-09-57 02:46:00* Test Item Value Reference Range Interpretation Comments MCH (test code = MCH) 31.7 pg 27.0-31.0 H [facility] RjuwyouJZCIHACCTN7664-07-06 02:46:0033.2[facility] HermannHEMATOLOGY 2012-01-25 02:46:0014.1[facility] JqfufinYMWTJCARSV0783-87-02 02:46:004.2[facility] VsteguvCHYUCTFYXP6706-43-13 02:46:10860Tkdmaeuk TpdewtaIGCZKBDEMU0481-69-92 02:46:009.9[facility] HermannBEDSIDE GLUCOSE BTQRRTH5475-24-77 02:32:0091[facility] HermannBEDSIDE GLUCOSE EFMVXPE8367-09-65 12:48:0065[facility] HermannCHEMISTRY 2012-01-02 10:05:0011.5[facility] RorvufoLESRGUYGJ9094-23-28 10:05:004[facility] OyhbennECFQGOYRA4452-02-42 10:05:000.6[facility] DfzurenTEGKFDFSR7201-56-94 10:05:008.3[facility] XiupohiCYZZQYXCU1751-23-42 10:05:0026[facility] HGWHLVZMF9938-58-28 10:05:0070[facility] ZyrongfSMHXNDJBN1093-51-33 10:05:13181 [facility] FhbwdciTUNFCQNFV8291-91-64 10:05:003.5[facility] HermannCHEMISTRY 2012-01-02 10:05:07641Uigkmqud KzbqasvUHPLPPZOXN9821-14-45 10:05:000.0[facility] GvabdekBBDBOQDARA1468-09-82 10:05:000.2[facility] OdsudxpBJPSKAVLPL7529-86-85 10:05:000.1[facility] TrkllbiTAJTMCFJDN2783-16-81 10:05:001.6[facility] UGUSTOSHCE8264-58-92 10:05:000.8[facility] QvzegytOGNKMTKNAX8405-17-08 10:05:000.6 [facility] ZskuitbEPCIKTJMJQ8628-33-80 10:05:004.9[facility] HermannHEMATOLOGY 2012-01-02 10:05:0063.1[facility] YvydcunDRZYPJCQDT5028-63-82 10:05:007.1[facility] NecnugyNDHRRCWWHF4639-92-86 10:05:00Normal (01/02/2012 05:05:00) [facility] IzcuvlpKQFYYAKDPK3132-49-77 10:05:0024.1[facility] ZygbkfvMLHSOXFFLS3534-65-84 10:05:00Normal (01/02/2012 05:05:00) [facility] GolrwojZGMMPLYMSL8792-37-45 10:05:001.08[facility] AhkjrfmJFCBODGIGV6783-63-37 10:05:00* Test Item Value Reference Range Interpretation Comments PT (test code = PT) 14.2 s 12.0-14.7 N [facility] IhkylhkGBPZYMVQCI6129-35-22 10:05:00* Test Item Value Reference Range Interpretation Comments PTT (test code = PTT) 32.6 s 22.9-35.8 N [facility] MuaohrzCAJXHFTVVV0501-63-02 10:05:0028.1[facility] HermannHEMATOLOGY 2012-01-02 10:05:009.5[facility] DxzgcslIBSNOQGTYR3572-22-28 10:05:00* Test Item Value Reference Range Interpretation Comments MCH (test code = MCH) 31.8 pg 27.0-31.0 H [facility] MphdnovQWMROGMBZS2775-11-21 10:05:0094.3[facility] HermannHEMATOLOGY 2012-01-02 10:05:0033.8[facility] VrwjikaSUJGDBGAPK6075-16-82 10:05:54154Dvteommx TehwtydECYLNXWVAO1914-49-08 10:05:0016.1[facility] CpttaaqXOTZWRTNOF0453-32-26 10:05:0010.4[facility] UgzmagbAROXQCPVCL0229-19-44 10:05:002.99[facility] YZQDSHVLBW0778-89-53 10:05:002.6[facility] LzqookyHHUQVAQMBD3641-72-61 05:15:00 10.7[facility] PcqqjdlQENFLNPJOP6114-53-01 23:30:0010.4[facility] HermannBLOOD BANK OKNDPTQ8741-43-32 13:51:00Negative (01/01/2012 08:51:00) [facility] Shaun SZHURWEMNL5336-12-08 23:55:0010.1[facility] YqinnifVOPCATBYCZ9895-50-52 23:55:00 209[facility] OqammgnLBKTUEBVWD7032-90-61 23:55:0032.1[facility] HermannHEMATOLOGY 2011-12-31 23:55:0016.5[facility] WvgqlpcSADHASFQNL4280-23-58 23:55:0094.1[facility] MvvycoiSIOXVNSUDI7833-24-20 23:55:0033.8[facility] HfhxmruSAVXXUOXTJ3409-07-93 23:55:00* Test Item Value Reference Range Interpretation Comments MCH (test code = MCH) 31.8 pg 27.0-31.0 H [facility] VgqjaohMMVTXBXHIB7747-96-15 23:55:003.3[facility] HermannHEMATOLOGY 2011-12-31 23:55:003.42[facility] WiuuebcMUGVNTPHAI2932-55-85 23:55:000.2[facility] FqvlscwXRJUKJCSMF8157-02-95 23:55:000.2[facility] JkjwyiaWJKKEJURZT7122-66-09 23:55:000.0[facility] BdcfuwiPTKDZTNVAV2323-72-82 23:55:001.2[facility] BZIZECAQEA1198-50-65 23:55:004.5[facility] BympruvGRBBQBUSIW0875-70-52 23:55:000.8 [facility] MfvvegxJNUQZAHTLB3652-67-17 23:55:0036.3[facility] HermannHEMATOLOGY 2011-12-31 23:55:0052.7[facility] QtcywczRFNKQWFXOP0966-96-39 23:55:005.7[facility] VhluonoUQPEFHWDAR8339-48-32 23:55:001.7[facility] HermannSTOOL XEDTD7348-21-17 05:13:00Positive *ABN*(12/31/2011 00:13:00) [facility] HjcekyeNXLPCMCTS6502-79-47 04:17:0010[facility] QqvyhnkLWDIZFHFK9898-57-36 04:17:004.5[facility] ZMHXRDTVB0183-99-38 04:17:0046[facility] YwaoqvuIGPIQBPXZ3322-39-89 04:17:000.2 [facility] HdmrgcrKBZPPPIHW6392-61-53 04:17:0023[facility] HermannCHEMISTRY 2011-12-31 04:17:003.8[facility] RduvpuwYEZPPTSFW1942-49-11 04:17:30756Ecaxklat EzorhzhYTKNTUVJN4853-02-93 04:17:007.9[facility] OpuhaigKAVVHSBRV5994-24-53 04:17:0094[facility] KxljuecOHRMZWNNI0848-81-66 04:17:0091[facility] OILNQKZWN0771-35-72 04:17:009.3[facility] JqpailnNHPVBRQKS0193-83-89 04:17:0014 [facility] CxdekemVXUJHLOYO8524-85-16 04:17:57440Owvnjpjd HermannCHEMISTRY 2011-12-31 04:17:000.8[facility] NmorusrFBOGHKQBG8551-24-79 04:17:0013.8[facility] ApxvkndUILSLILGR3765-18-27 04:17:0018[facility] QohqfzcEBANZWJQW9876-78-01 04:17:001.3[facility] NjatrojPKZUOKXUK8654-36-23 04:17:003.4[facility] BQSMNGGAH2072-26-56 04:17:81143Bxfhhyjf XosjsksEQYPXSKKSZ7213-58-32 04:17:0016.3 [facility] HivrjpsFMIWOOLTYF0145-87-64 04:17:81905Zlhuojwn HermannHEMATOLOGY 2011-12-31 04:17:009.9[facility] PrzrgozEYTGLYGSBM0671-22-15 04:17:0038.6[facility] VkmbgqjWCEDKLLBOD1964-64-23 04:17:0094.4[facility] AtmrcksFUYXFPQXRX7616-70-17 04:17:00* Test Item Value Reference Range Interpretation Comments MCH (test code = MCH) 31.3 pg 27.0-31.0 H [facility] NsnwixfKTKETIPUEP5792-01-78 04:17:0033.2[facility] HermannHEMATOLOGY 2011-12-31 04:17:006.5[facility] VhrebsnOIUBVPZATF0200-00-90 04:17:0012.8[facility] OqllkhjCGWRPLIAIY8952-00-88 04:17:004.09[facility] IyqdgrwENJXOBCVVS6727-49-66 04:17:000.0[facility] AxvilvqAIMTOLNPDJ3152-77-61 04:17:000.4[facility] ESYHNPXRHX4138-09-66 04:17:000.1[facility] NtcrufqTQIDGBWJSJ7229-04-05 04:17:00 58.4[facility] VkqiogzXDOUWHOJDP6475-90-72 04:17:002.1[facility]annHEMATOLOGY 2011-12-31 04:17:006.1[facility] MmhbthqCRQSRLTNIP1808-92-56 04:17:0033.0[facility] WfjixsjVXHIFEZFHD9073-04-24 04:17:000.4[facility] OoercpcBPSIWHGXFI2663-05-87 04:17:003.8[facility] YhgohriCFKTROIFQB0714-07-78 04:17:002.1[facility] FXYPAGLZJO7328-30-92 04:17:00Negative *NA*(12/30/2011 23:17:00) [facility] OgfljqdOCQPDUPMWX3429-85-18 04:17:001[facility] SihojlrPXRESBIZNQ3482-03-69 04:17:004[facility] WyzqtghUNJCYVUFOE5113-58-70 04:17:00Negative (12/30/2011 23:17:00) [facility] RetvxbcTCOMLUDJDV8560-28-06 04:17:00Negative (12/30/2011 23:17:00) [facility] LkqgxenACQIDUDTFH1036-44-07 04:17:00Negative (12/30/2011 23:17:00) [facility] MsddshlFZFDTVRAXM7819-35-17 04:17:00Occasional /LPF *NA*(12/30/2011 23:17:00) [facility] UeefqccJDVNVOOIEF2683-07-79 04:17:001 [facility] ExlitloSJZEFCSZFX9153-40-29 04:17:00Negative mg/dL *NA*(12/30/2011 23:17:00) [facility] OkdhkkpEGVLRKMDMM0031-87-29 04:17:005.0[facility] YMUGXDRQBW3240-41-77 04:17:00Negative mg/dL (12/30/2011 23:17:00) [facility] UqakaueRRKPMYZRRR9678-18-15 04:17:00Negative mg/dL *NA*(12/30/2011 23:17:00) [facility] OnxmjofKIDELOKFSG4335-58-64 04:17:00Negative *NA*(12/30/2011 23:17:00) [facility] WlbryxlWESKUZWHSC2814-38-45 04:17:00Clear (12/30/2011 23:17:00) [facility] TigiuiqZOQRGVKKDX8774-81-72 04:17:001.019[facility] HermannURINALYSIS 2011-10-16 06:36:001[facility] PfvjblnLDUBPSTVJE0422-86-49 06:36:006[facility] LcgqvrwVAJRJFUAJP1610-74-24 06:36:003[facility] ShttvcaGQBYGADUVO6300-96-56 06:36:00Few /LPF *NA*(10/16/2011 01:36:00) [facility] MlmwhpnGVDGCRUOLT8079-73-31 06:36:00Moderate *ABN*(10/16/2011 01:36:00) [facility] HermannURINALYSIS 2011-10-16 06:36:00Occasional /LPF *NA*(10/16/2011 01:36:00) [facility] RWVDHEIRJT7662-67-67 06:36:00Negative mg/dL *NA*(10/16/2011 01:36:00) [facility] FivkdmtMYKZGKPCDF5546-56-29 06:36:00Negative *NA*(10/16/2011 01:36:00) [facility] GfysyivNDHWGJPPXO8102-59-32 06:36:00Negative (10/16/2011 01:36:00) [facility] YwpbmqbBCDFAJMBIW5547-53-03 06:36:00Negative mg/dL *NA*(10/16/2011 01:36:00) [facility] VkbwprwVMYXAQEZBU0227-28-18 06:36:00Negative mg/dL (10/16/2011 01:36:00) [facility] TdalqsiISEHIFCMLS1759-39-92 06:36:00Negative (10/16/2011 01:36:00) [facility] PybpmkzDYMEPWOISI2216-66-22 06:36:00Slight *ABN*(10/16/2011 01:36:00) [facility] EbtpiidSITYJQFAQK5542-05-87 06:36:001.019[facility] HRHXCJIOND5321-60-12 06:36:006.0[facility] UksclupKYLQNKPCT4082-91-48 06:33:0014.7 [facility] EmryepoLPCEXNFUA0546-82-44 06:33:000.7[facility] HermannCHEMISTRY 2011-10-16 06:33:58990Yyfvrnkh FifoynbIXVMBMQSA3158-63-91 06:33:0014[facility] VnhmqucWCDNIJBYO3124-65-71 06:33:0091[facility] NhvokdhPMCMNAGEK8995-16-57 06:33:0023[facility] PswgxadDRRVIOBAG1721-74-90 06:33:008.9[facility] LUCZZFKJT7245-98-39 06:33:003.7[facility] GboxeemANTMQELQX3377-01-62 06:33:08623 [facility] EgsfckfMDFAGZXVJE0661-80-26 06:33:0040.3[facility] HermannHEMATOLOGY 2011-10-16 06:33:004.6[facility] TncjrhgPZFMJQGLXC2607-18-85 06:33:0016.2[facility] NvogwvcPOGQDNXAOK3094-87-89 06:33:0010.2[facility] HxanrrrHLBIYQOJFO1355-63-42 06:33:00* Test Item Value Reference Range Interpretation Comments MCH (test code = MCH) 30.8 pg 27.0-31.0 N [facility] ZaadykdPXFALEYQSX5637-40-45 06:33:0033.4[facility] HermannHEMATOLOGY 2011-10-16 06:33:81251Curtiweq ZhkabybSXCMKNDOIY3186-78-85 06:33:004.37[facility] GwpyviuFSSWQEVDPK9541-45-61 06:33:0013.4[facility] EisepmzFLZAXIXQPI4434-53-67 06:33:0092.2[facility] BdqctsvEPPFOSOMZX2182-38-19 06:33:001.9[facility] PBFVOTOQZY6029-30-46 06:33:000.1[facility] CqixhzeNYAWXRXZPL5223-76-17 06:33:002.2 [facility] SbqxlxaHZKTHVQUVR6449-30-70 06:33:000.4[facility] HermannHEMATOLOGY 2011-10-16 06:33:0047.8[facility] SdmsjjsICSRLHOUDA3727-17-80 06:33:009.0[facility] BegwnoyCEJCWWIMSP7182-23-18 06:33:0040.1[facility] DrcomtmPUIWEKWEBP1387-12-84 06:33:002.8[facility] VkbnrsoWSPXIOTXGD2646-80-44 06:33:000.3[facility] DRFRTLUURA7972-09-16 06:33:000.0[facility] JsbkhxoONBZPDUCF9258-73-12 09:45:0070 [facility] OyaoztpZISNGKKFQ0007-11-71 09:45:000.9[facility] HermannCHEMISTRY 2011-10-10 09:45:0010[facility] RgxlrraIUFHCVMWU1103-21-87 09:45:0023[facility] NhorkziRNSIFXERH3775-52-29 09:45:008.8[facility] EgphsxjHASQEREOH8894-70-11 09:45:77227Qtbywwfk LcdgtccQVSFCQTNI8121-15-70 09:45:004.0[facility] JKKCHATJT2343-85-10 09:45:66517Ylskkynp LvsywgjAZGROTHTW1244-20-18 09:45:0016.0 [facility] HksrtgbWLFQFUCJHE2219-60-52 09:45:001.3[facility] HermannHEMATOLOGY 2011-10-10 09:45:000.7[facility] EgmtmovATQPHBJGTT7348-43-15 09:45:000.2[facility] YxpxgbiXGDHEQBHWH5259-14-99 09:45:002.1[facility] RegyqujUYHDFSJNJI6454-52-05 09:45:000.0[facility] VjbpjyiCUKUKVLOGC6123-04-31 09:45:000.1[facility] UDAVHUWYEI1557-71-67 09:45:003.3[facility] HrwlmxuUDBYCNYXHE6489-45-91 09:45:005.5 [facility] WkmdftbWWJQJBDTVR4548-13-15 09:45:0055.8[facility] HermannHEMATOLOGY 2011-10-10 09:45:0034.7[facility] EqggqggSYEJSVPGDI8329-06-08 09:45:07679Wnabgpjt VxjxzaxTNITHZQIIN1930-06-26 09:45:0015.7[facility] LixidmvBPVIVRHXAV5401-82-81 09:45:0033.7[facility] HrakpxpOJAQZEBBWO7045-66-02 09:45:0010.1[facility] VKAMBPUQMR2769-36-23 09:45:0035.6[facility] OwuonshAPJAGCYDKT3626-92-51 09:45:00 3.8[facility] MeqknqyZVCUHTYZVM1704-67-22 09:45:0091.6[facility] HermannHEMATOLOGY 2011-10-10 09:45:00* Test Item Value Reference Range Interpretation Comments MCH (test code = MCH) 30.9 pg 27.0-31.0 N [facility] NlqmyboZBMUZZQZWB0274-36-58 09:45:0012.0[facility]annHEMATOLOGY 2011-10-10 09:45:003.89[facility] HermannBEDSIDE GLUCOSE GJBIYHJ3466-13-19 02:12:0095[facility]annBLOOD BANK AXWCSJM2222-80-33 15:34:00Negative (10/09/2011 10:34:00) [facility] WsdldvcYZXUTSKEF0487-20-74 15:34:006[facility] FyileoqWYIAYFVZC7794-35-83 15:34:17570Xsblrhnk IgcylmwVHSSDXMSO4697-91-82 15:34:0015.6[facility] NewxoelFFQBUSAWE7265-85-98 15:34:0057[facility] BAPLCURUD7847-67-79 15:34:0012[facility] PkpamodPQUBVWUFC9298-93-18 15:34:75545 [facility] OobujwoHRDWDUGWU3647-90-60 15:34:24066Rdbpemcb HermannBLOOD BANK RRLISND5683-37-99 14:01:00Product available 2(10/09/2011 09:01:00) [facility] BewzsyzQDFSEGKTVK6542-29-13 12:34:008.5[facility] FrjhstrWROMWORYZN1463-80-43 12:34:0026.1[facility] VrnvvjqHMRRPWIDH9442-04-81 06:35:0011.4[facility] QFMJCIHIG5542-30-56 06:35:64844Mtiwvlvn JpxpuwcTERSLMFMY7983-22-84 06:35:001.0 [facility] BfmoekdIFFICGMFA2188-82-44 06:35:009[facility] QahtecwVWKCKMRHT9293-53-85 06:35:003.4[facility] JvwtuvfAWLTZDLHG1211-24-29 06:35:0090[facility] AYJDJKKTS6663-63-41 06:35:008.5[facility] IllcxpePHYBRZUCE4389-22-99 06:35:0028 [facility] RionlehWWFUNIBTD8153-08-28 06:35:76053Doaxrmie HermannHEMATOLOGY 2011-10-09 06:35:21352Byonnaxo ZkntxacAZUPQRAWRB4404-46-92 06:35:0015.1[facility] NkftuxvTZOCZMWXPP9523-27-28 06:35:009.5[facility] UrsewxjUVMGEIIZPB9744-98-38 06:35:0033.3[facility] WqldimaGOSNUEGZWT3322-24-02 06:35:004.1[facility] Shaun QKRHIKDPIE5449-14-04 06:35:003.11[facility] UwdonuaOFCIFRBXEY1046-07-00 06:35:00 28.1[facility] TblfrtxICNFQALVRW1663-67-91 06:35:0090.4[facility] HermannHEMATOLOGY 2011-10-09 06:35:009.4[facility] DvkptoaBYUSOWVLJG8736-37-32 06:35:00* Test Item Value Reference Range Interpretation Comments MCH (test code = MCH) 30.1 pg 27.0-31.0 N [facility] ItquyrnOBIDWNMCDB4962-15-33 06:35:0045.7[facility] HermannHEMATOLOGY 2011-10-09 06:35:0041.6[facility] EmauovaDLRLXFCYAR0908-37-67 06:35:001.7[facility] TqsxnaeRLMCXHDPJF9173-59-64 06:35:000.5[facility] PgobmwgERULXJVBXJ5831-84-35 06:35:002.1[facility] BebmrhnSYKVJBGLAH2912-11-99 06:35:0010.1[facility] TWOZACKMSU4046-02-18 06:35:001.9[facility] ChqpypxXWFXMJNYUY5250-26-51 06:35:000.1 [facility] CkuhkmuJJMBJRXEMM6779-84-62 06:35:000.0[facility] HermannHEMATOLOGY 2011-10-09 06:35:000.4[facility] Dunn
--- NOTE | 2019-10-17 21:56 | Emergency Department Note ---
History of Present Illnes History of Present Illness Chief Complaint: General Medicine Complaints History of Present Illness This is a 43 year old female presents with complaint of fever body aches, nausea, and diarrhea. Patient was just released from this facility 2 days ago for same after being admitted for fever abdominal pain diarrhea and at that time she was admitted she had hypokalemia hyponatremia and rhabdomyolysis. States after getting home symptoms returned again around fever again and have diarrhea and abdominal pain and body aches again. Reports temperature at home today was 102.5 took Tylenol 2 hours ago. . Historian: Patient Arrival Mode: Car Onset (how long ago): day(s) (2) Location: abd Quality: pain ,nausea, diarhhea, and fever Radiation: non-radiation Severity: moderate Onset quality: gradual Duration (how long): day(s) (2) Timing of current episode: constant Progression: worsening Chronicity: recurrent Context: recent illness (discharged from this hospital for same 2 days ago) Relieving factors: none Exacerbating factors: none Associated symptoms: fever/chills, other (body aches, diarrhea) Past Medical/Family History Physician Review I have reviewed the patient's past medical and family history. Any updates have been documented here. Past Medical History Recent Fever: Yes Clinical Suspicion of Infectio: Yes New/Unexplained Change in Ment: No Past Medical History: Cancer Other Medical History: cervical cancer stage 4 leukemia Past Surgical History: Cholecysctectomy, Appendectomy, Hysterectomy, Hernia Repair Other Surgery: spinal fusion dilaudid pain pump insertion bile duct sphincterectomy scar tissue removal x3 in abd Frank hernia Social History Smoking Cessation: Never Smoker Alcohol Use: None Any Illegal Drug Use: No Other Last Tetanus: UNKNOWN Review of Systems Review of Systems Constitutional: as per HPI EENTM: no symptoms Cardiovascular: no symptoms Respiratory: no symptoms Gastrointestinal: as per HPI Genitourinary: no symptoms Musculoskeletal: no symptoms Neurological: no symptoms Psychological: no symptoms Endocrine: no symptoms Hematological/Lymphatic: no symptoms Review of other systems All other systems reviewed and negative. Physical Exam Related Data Allergies: Coded Allergies: amoxicillin (Verified Allergy, Intermediate, hives, 05/19/19) clavulanic acid (Verified Allergy, Intermediate, hives, 05/19/19) iodine (Verified Allergy, Intermediate, hives, 05/19/19) Triage Vital Signs Vital Signs Date Time Temp Pulse Resp B/P (MAP) Pulse Ox O2 Delivery O2 Flow Rate FiO2 10/17/19 21:43 97.4 84 16 142/90 97 Vital signs reviewed: Yes Physical Exam CONSTITUTIONAL Constitutional: well-developed, well-nourished HENT HENT: normocephalic, atraumatic, oropharynx clear/moist, nose normal HENT L/R: left ext ear normal, right ext ear normal EYES Eyes: PERRL, conjunctivae normal NECK Neck: ROM normal PULMONARY Pulmonary: effort normal, breath sounds normal CARDIOVASCULAR Cardiovascular: regular rhythm, heart sounds normal, capillary refill normal, normal rate GASTROINTESTINAL Abdominal: soft, bowel sounds normal, tender (moderated generalized tenderness) GENITOURINARY Genitourinary: exam deferred SKIN Skin: warm, dry MUSCULOSKELETAL Musculoskeletal: ROM normal NEUROLOGICAL Neurological: alert, oriented x 3, no gross motor or sensory deficits PSYCHOLOGICAL Psychological: mood/affect normal, judgement normal Results Laboratory Laboratory Laboratory Tests Test 10/17/19 21:45 White Blood Count 5.01 x10e3/uL (4.8-10.8) Red Blood Count 3.84 x10e6/uL (3.6-5.1) Hemoglobin 11.2 g/dL (12.0-16.0) Hematocrit 36.2 % (34.2-44.1) Mean Corpuscular Volume 94.3 fL (81-99) Mean Corpuscular Hemoglobin 29.2 pg (28-32) Mean Corpuscular Hemoglobin Concent 30.9 g/dL (31-35) Red Cell Distribution Width 15.6 % (11.7-14.4) Platelet Count 418 x10e3/uL (140-360) Neutrophils (%) (Auto) 38.5 % (38.7-80.0) Lymphocytes (%) (Auto) 46.1 % (18.0-39.1) Monocytes (%) (Auto) 9.2 % (4.4-11.3) Eosinophils (%) (Auto) 4.6 % (0.0-6.0) Basophils (%) (Auto) 0.6 % (0.0-1.0) Neutrophils # (Auto) 1.9 (2.1-6.9) Lymphocytes # (Auto) 2.3 (1.0-3.2) Monocytes # (Auto) 0.5 (0.2-0.8) Eosinophils # (Auto) 0.2 (0.0-0.4) Basophils # (Auto) 0.0 (0.0-0.1) Absolute Immature Granulocyte (auto 0.05 x10e3/uL (0-0.1) Sodium Level 143 mmol/L (136-145) Potassium Level 4.2 mmol/L (3.5-5.1) Chloride Level 101 mmol/L (98-107) Carbon Dioxide Level 32 mmol/L (22-29) Anion Gap 14.2 mmol/L (8-16) Blood Urea Nitrogen 7 mg/dL (7-26) Creatinine 0.77 mg/dL (0.57-1.11) Estimat Glomerular Filtration Rate > 60 ML/MIN (60-) BUN/Creatinine Ratio 9 (6-25) Glucose Level 92 mg/dL (74-118) Calcium Level 9.0 mg/dL (8.4-10.2) Total Bilirubin 0.2 mg/dL (0.2-1.2) Aspartate Amino Transf (AST/SGOT) 43 IU/L (5-34) Alanine Aminotransferase (ALT/SGPT) 48 IU/L (0-55) Alkaline Phosphatase 110 IU/L (40-150) Creatine Kinase 132 IU/L (29-168) Creatine Kinase MB 1.10 ng/mL (0-5.0) Troponin I 0.013 ng/mL (0-0.300) Total Protein 6.4 g/dL (6.5-8.1) Albumin 3.3 g/dL (3.5-5.0) Globulin 3.1 g/dL (2.3-3.5) Albumin/Globulin Ratio 1.1 (0.8-2.0) Amylase Level 62 U/L (25-125) Lipase 154 U/L (8-78) Lab results reviewed: Yes Laboratory comments pt has elevated lipase today, lipase was normal during recent admission Imaging Imaging results reviewed: Yes Impressions MPRESSION: 1. Unremarkable bowel gas pattern. 2. Clear lungs. 3. 2 cylindrical metallic densities adjacent to the spinal fusion hardware may be external to the patient. More precise location can be confirmed with dedicated spine series if clinically indicated. Critical Care Time Subsequent provider I assumed direction of critical care for this patient from another provider of my specialty. Assessment & Plan Assessment & Plan Final Impression: (1) DIARRHEA, UNSPECIFIED (2) IDIOPATHIC ACUTE PANCREATITIS WITHOUT NECROSIS OR INFECTION (3) Abdominal pain Assessment & Plan Patient with fever body aches chills diarrhea and abdominal pain. Discharged from this hospital 2 days ago after being admitted for same and at that time was in rhabdomyolysis and hyponatremia and hypokalemia. CBC, CMP, amylase, lipase, UA, acute abdominal series, cardiac enzymes ordered to eval for UTI, pancreatitis,, bowel obstruction, electrolyte abnormality, rhabdomyolysis. Patient found to have pancreatitis by lab work. I spoke to Dr. Jaun trivedi, and I spoke with Dr. Violetta Alexandra. Both state place patient in observation hydrate recheck labs in about 12 hours. Depart Disposition: ADMITTED Last Vital Signs Date Time Temp Pulse Resp B/P (MAP) Pulse Ox O2 Delivery O2 Flow Rate FiO2 10/17/19 21:43 97.4 84 16 142/90 97 Home Meds Active Scripts Cyclobenzaprine Hcl (FLEXERIL) 5 Mg Tablet, 10 MG PO TID for PAIN, #20 Prov:SIMA BAUTISTA MD 07/25/19 Reported Medications Diphenoxylate Hcl/Atropine (LOMOTIL TABLET) 1 Each Tablet, 1 TAB PO Q6HR PRN for DIARRHEA, TAB 10/15/19 [mertazapine] No Conflict Check, 15 MG PO HS 10/09/19 Hydromorphone Hcl (DILAUDID) 2 Mg Tab, 25 MG SC IV infusion pump, cont 07/09/17 Acetaminophen With Codeine (TYLENOL WITH CODEINE #4 TABLET) 1 Each Tablet, 1 TAB PO Q6H 08/24/16 Gabapentin (GABAPENTIN) 300 Mg Capsule, 800 MG PO TID, #60 CAP 08/24/16 Tizanidine Hcl (TIZANIDINE HCL) 4 Mg Capsule, 4 MG PO TID 08/10/16 Temazepam (TEMAZEPAM) 15 Mg Capsule, 15 MG PO HS 08/10/16 Zolpidem Tartrate (AMBIEN) 10 Mg Tablet, 10 MG PO HS, TAB 03/09/16 Citalopram Hydrobromide (CELEXA) 40 Mg Tablet, 40 MG PO DAILY 12/01/15 Dicyclomine Hcl (BENTYL) 10 Mg Capsule, 15 MG PO TID, CAP 12/01/15 Diazepam (DIAZEPAM) 10 Mg Tablet, 10 MG PO Q8H 12/01/15 Promethazine Hcl (PROMETHAZINE HCL) 50 Mg Tablet, 50 MG PO Q6HR 12/01/15 MORGAN LOCKWOOD MD Oct 17, 2019 21:55
[2019-10-17 22:12] LABS: BASOPHILS % 0.6 % (0.0-1.0); EOSINOPHILS # (AUTO) 0.2 (0.0-0.4); EOSINOPHILS % 4.6 % (0.0-6.0); HEMATOCRIT 36.2 % (34.2-44.1); HEMOGLOBIN 11.2 g/dL (12.0-16.0); LYMPHOCYTES # (AUTO) 2.3 (1.0-3.2); LYMPHOCYTES % 46.1 % (18.0-39.1); MEAN CORPUSCULAR HEMOGLOBIN 29.2 pg (28-32); MEAN CORPUSCULAR HGB CONC 30.9 g/dL (31-35); MEAN CORPUSCULAR VOLUME 94.3 fL (81-99); MONOCYTES # (AUTO) 0.5 (0.2-0.8); MONOCYTES % 9.2 % (4.4-11.3); NEUTROPHILS # (AUTO) 1.9 (2.1-6.9); NEUTROPHILS % 38.5 % (38.7-80.0); PLATELET COUNT 418 x10e3/uL (140-360); RED BLOOD COUNT 3.84 x10e6/uL (3.6-5.1); RED CELL DISTRIBUTION WIDTH 15.6 % (11.7-14.4)
[2019-10-17 22:28] LABS: AMYLASE 62 U/L (25-125); LIPASE 154 U/L (8-78)
[2019-10-17 22:30] LABS: ALANINE AMINOTRANSFERASE 48 IU/L (0-55); ALBUMIN 3.3 g/dL (3.5-5.0); ALBUMIN/GLOBULIN RATIO 1.1 (0.8-2.0); ALKALINE PHOSPHATASE 110 IU/L (40-150); ANION GAP 14.2 mmol/L (8-16); BLOOD UREA NITROGEN 7 mg/dL (7-26); BUN/CREATININE RATIO 9 (6-25); CARBON DIOXIDE 32 mmol/L (22-29); CHLORIDE 101 mmol/L (98-107); CREATINE KINASE 132 IU/L (29-168); CREATININE, SERUM 0.77 mg/dL (0.57-1.11); EST GLOMERULAR FILTRATION RATE > 60 ML/MIN (60-); GLUCOSE 92 mg/dL (74-118); POTASSIUM 4.2 mmol/L (3.5-5.1); SODIUM 143 mmol/L (136-145)
--- NOTE | 2019-10-17 23:01 | Diagnostic Imaging Report ---
Acute Abdominal Series CPT CODE: 07729 INDICATION: Abdominal pain, nausea, vomiting, diarrhea. COMPARISON: Chest x-ray 10/09/2019, CT abdomen/pelvis 10/09/2019. FINDINGS: Single view of the chest shows no infiltrates or effusions. Vascular markings are normal. Supine and erect views of the abdomen show Medical Devices: Spinal stimulator battery pack in the right hemiabdomen. Cholecystectomy clips in the right upper quadrant. Fusion hardware in the lower lumbar spine. There are 2 cylindrical metallic densities each measuring 3.2 cm overlying the fusion hardware. One is located to the right of midline between the first and second pedicle screw counting down. The second is located inferior to the third most left pedicle screw. These were not present on the supervisor porcelain department image of the CT. Bowel: Unremarkable bowel gas pattern. No dilated bowel loops or air-fluid levels. Chain sutures in left upper quadrant correspond to small bowel on CT. No pneumatosis. Free air: None Abdominal calcifications: None over the renal shadows or along the expected course of the ureters. There are multiple pelvic phleboliths. Organomegaly: None Bones: Status post from L4 to S1. No focal osseous lesions. IMPRESSION: 1. Unremarkable bowel gas pattern. 2. Clear lungs. 3. 2 cylindrical metallic densities adjacent to the spinal fusion hardware may be external to the patient. More precise location can be confirmed with dedicated spine series if clinically indicated. Signed by: Dr. Veronica Kim MD on 10/17/2019 10:58 PM
--- OUTSIDE RECORDS SUMMARY | 2019-10-18 00:57 | XMS REPORT | Clinical Summary ---
Author Author [facility] Organization [facility] Address Unknown Phone Unavailable Care Team Providers Care Freight Rate Specialist Name Role Phone Miko Bahena DO PCP [phone] Allergies Comments Active Allergy Reactions Severity [...] ot Implanted Type Area Manufactur er 07/12/2018 [id number] / / [id number] Pump Infsn Synchromed Ii W/ Fltr Neurosurgi Right: Abdome n, [employer] Sut Loop Prgrmbl Rsvr 20ml - bert Lower Quadrant N EUROMODUL [id number] Implants ATION Implanted: Qty: 1 on 02/15/2017 by Asad Ritchie MD at [facility] 12/12/2021 [id number] / / [id number] Passer Cath W/ Rmvbl Hndl And Ppe Neurosurgi Right: Abdom en, [employer] Obtrtr 38cm Strl - [id number] bert Lower Quadrant U SA - Implanted: Qty: 1 on 02/15/2017 by Implants MELINA Asad Larson MD at [facility] [place] 08/29/2020 [id number] / / [id number] Closure Wnd Tiss Rpr Sys - Surgical Right: Abdomen, AN ULEX [id number] Implants; Lower Quadrant TECHNOLOGI Implanted: Qty: 1 on 02/15/2017 by [employer]; [employer] Asad Ritchie MD at [facility] Extenders; Surgical Wires Results Not on fileafter 10/17/2018 Insurance Type Payer Benefit Subscriber ID Effective Phone Address Plan / Dates Group Exchange BCBS EXCHANGE BLUE xxxxxxxxxxxx 2016-P ADVANTAGE resent HMO EXCH [id number] Advance Directives For more information, please contact: [phone] 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
--- OUTSIDE RECORDS SUMMARY | 2019-10-18 00:57 | XMS REPORT | Clinical Summary ---
Author Author ANDRY [employer] Organization [facility] Address Unknown Phone Unavailable Care Team Providers Care Bottler Name Role Phone Blair Hunt Unavailable Sharpless [...] Not on file Results Not on fileafter 10/17/2018 Insurance Payer Benefit Subscriber ID Type Phone Address Plan / Group BLUE CROSS/BLUE SHIELD BCBS ADV xxxxxxxxxxxx [phone] [address] [place] [address] EXCHANGE Advance Directives For more information, please contact: [facility] [address] [place] [address] Date Inactivated Comments Code Status [...]
--- OUTSIDE RECORDS SUMMARY | 2019-10-18 01:01 | XMS REPORT | Continuity of Care Document ---
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 Name Role Phone [employer] Unavailable Un available Problems Problem Status Onset Date Classification Date Reported Comments Source Urticaria, unspecified 08/05/2016 08/08/2016 [facility] ALLERGIC REACTION Active 08/05/2016 [facility] Unspecified abdominal pain 07/13/2016 07/16/2016 [facility] Pain in unspecified joint 07/13/2016 07/16/2016 [facility] FEVER Active 07/13/2016 [facility] DIVERTICULITIS Active 07/13/2016 [facility] ABD PAIN Active 04/29/2016 [facility] ABDOMINAL PAIN Active 04/29/2016 [facility] INTRACTABOLE ABDOMINAL PAIN Ac tive 04/11/2016 [facility] SIDE PAIN Active 04/11/2016 [facility] Discharge Diagnosis: Abdominal pain 04/06/2016 04/09/[address] [facility] [address] SCAN, DR SENT Active 04/05/2016 [facility] Discharge Diagnosis: Acute pyelonephritis 03/02/2016 03/05/2016 [facility] DOC SEND Active 03/02/2016 [facility] Discharge Diagnosis: Contusion of left u pper arm, initial encounter 03/20/2015 03/23/2015 [facility] ARM INJURY Active 03/20/2015 [facility] Discharge Diagnosis: Transaminitis 09/14/2014 10/03/2014 [facility] Discharge Diagnosis: Abdominal pain in female patient 09/14/2014 10/03/2014 [facility] INTRACTABLE NAUSEA AND VOMITING Active 09/13/2014 [facility] Discharge Diagnosis: Contusion of foot, left 02/09/2014 02/11/2014 [facility] Discharge Diagnosis: Pain in left foot 02/09/2014 02/11/2014 [facility] FOOT PAIN Active 02/09/2014 [facility] VOMITING,NAUSEA Active 12/10/2013 [facility] NAUSEA AND VOMITING Active 12/10/2013 [facility] Discharge Diagnosis: Headache 12/07/2013 12/09/[address] [facility] [address] SENT Active 12/06/2013 [facility] Discharge Diagnosis: Abdominal pain 09/13/2013 09/15/2013 [facility] Discharge Diagnosis: Elevated liver function tests 09/02/2013 09/12/2013 [facility]: Nausea and vomiting 09/02/2013 09/12/2013 [facility] Diagnosis: abdominal pain/elevated lft's 09/01/2013 09/03/2013 [facility] VOMITING Active 09/01/2013 [facility] INTRACTABLE VOMITING, ELEVATED LIVER ENZ Active 09/01/2013 [facility] VOMITING/ABD PAIN/SWELLING ABD Active 08/31/2013 [facility] BLOATING/GASTRIC PAIN/NAUSEA/PIPER/VOMITING Active 08/29/2013 [facility] SOB Active 0 06/05/2013 [facility] ASTHMATIC BRONCHITIS Active 06/05/2013 [facility] CHEST AND ARM COMPLAINTS Active 02/11/2013 [facility] OVERDOSE Active 10/19/2012 [facility] SEIZURES Active 09/27/2012 [facility] RENAL COLIC, ABDOMINAL PAIN, DEHYDRATION Active 08/06/2012 [facility] SEIZURE Active 07/17/2012 [facility] URINARY RETENTION Active 07/09/2012 [facility] BACK PAIN Active 07/07/2012 [facility] 789.00 - ABDMNAL PAIN UN Active 06/29/2012 [facility] [place] FALL Active 05/31/2012 [facility] 719.45 - JOINT PAIN-PELV Active 03/06/2012 [facility] ALLERGIC REATION Active 01/24/2012 [facility] GI BLEED Active 12/31/2011 [facility] HEADACHE Active 12/31/2011 [facility] RECTAL BLEED, NO BOWEL MOVEMENT X 5DAYS Active 12/30/2011 [facility] SYNCOPE Active 10/14/2011 [facility] LOWER BACK PAIN Active 10/08/2011 [facility] SYNCOPE, ANEMIA, HYPERNATREMIA Active 10/08/2011 [facility] Abdominal pain Active Problem 02/14/2013 [facility] PID Shaun,[facility] Anxiety Active Problem 02/14/2013 [facility], MICHAEL Dunn, [facility] Cancer of cervix Active Problem 02/14/2013 [facility] P[facility] Shaun,[facility] Depression Active Problem 02/14/2013 [facility], MICHAEL Dunn, [facility] Female genital organ symptoms Active Problem 07/2012 2[facility]ED [facility], MICHAEL Dunn,[facility] Gastric bypass operation Active Problem 02/14/2013 [facility], Ruma Dunn,[facility] Laparoscopic procedure Active Problem 02/14/2013 [facility], O PID Shaun,[facility] Lumbar puncture headache Active Problem 10/18/2011 [facility] Lysis of adhesions Active Problem 02/14/2013 [facility], O PID Shaun,[facility] Migraine Active Problem 02/14/2013 [facility], MICHAEL Dunn, [facility] Sinusitis Active Problem 02/14/2013 [facility], MICHAEL Dunn, [facility] Ulcer Active Problem 02/14/2013 [facility], MICHAEL Dunn, [facility] Lumbar puncture headache Active Problem 02/14/2013 [facility], O PID Shaun,[facility] Kidney infection Resolved Problem 02/14/2013 [facility] [place] Malabsorption Resolved Problem 02/14/2013 [facility], [place] Cancer Resolved Problem 02/14/2013 1cervical [facility] Abdominal pain (finding) Active Problem 08/08/2016 [facility] [place] Anxiety (finding) Active Problem 08/08/2016 [facility] [place] bipolar(Confirmed) Resolved Problem 02/11/2014 [facility] [place] Malignant neoplasm, primary (morphologic abnormality) Resolved Problem 03/05/2016 cervical MICHAEL [facility] Malignant tumor of cervix (disorder) Active Problem [facility] [place] [place] Depressive disorder (disorder) Active Problem [facility] [place] [place] Female genital organ symptoms (finding) Active Problem 08/08/2016 [facility] Esophagogastrostomy, antesternal or ante thoracic (procedure) Active Prob [place] 08/08/[facility] high cholesterol(Confirmed) Re solved Problem [facility] [place] hx cerv cancer(Confirmed) Reso lved Problem [facility] [place] hx gastric bypass(Confirmed) R esolved Problem [facility] [place] hypoglycemia(Confirmed) Resolv ed Problem [facility] [place] [place] Infectious disorder of kidney (disorder) Resolved Problem 08/08/2016 [facility] [place],[facility] Laparoscopic-assisted procedure (procedure) Active Problem 08/08/2016 [facility] [place],[facility] Lumbar Fusion L3 S1(Confirmed) Resolved Problem [facility] [place] [place] lumbar fusion surgery(Confirmed) Resolved Problem [facility] [place] [place] Headache following lumbar puncture (disorder) Active Problem 08/08/2016 [facility] [place],[facility] Lysis of adhesions (procedure) Active Problem [facility] [place] [place] Malabsorption syndrome (disorder) Resolved Problem [facility] [place] [place] Migraine (disorder) Active Problem 08/08/2016 [facility] [place] [place] Sinusitis (disorder) Active Problem 08/08/2016 [facility] [place] [place] Ulcer (morphologic abnormality) Active Problem [facility] [place] [place] Biopsy of liver (procedure) Ac tive Problem [facility] [place] [place] bipolar Resolved Problem 06/12/2013 [facility] high cholesterol Resolved Problem 06/12/2013 [facility] hx cerv cancer Resolved Problem 06/12/2013 [facility] hx gastric bypass Resolved Problem 06/12/2013 [facility] hypoglycemia Resolved Problem 06/12/2013 [facility] Lumbar Fusion L3 S1 Resolved Problem 06/12/2013 [facility] lumbar fusion surgery Resolved Problem 06/12/2013 [facility] Endometriosis (disorder) Active Problem 08/08/2016 [facility] Polycystic ovaries (disorder) Resolved Problem [facility] Carcinoma of cervix (disorder) Resolved Problem [facility] Crohn's disease (disorder) Res olved Problem [facility] History of bypass of stomach (situation) Resolved Problem 08/08/2016 [facility] Hypoglycemia (disorder) Resolv ed Problem [facility] Systemic lupus erythematosus (disorder) Resolved Problem 08/08/2016 [facility] Mechanical complication of internal orth opedic device, implant AND/OR graft (disorder) Resolved Problem 08/08/2016 [facility] SYNCOPE AND COLLAPSE Active [facility] ANEMIA NOS [facility] RETENTION OF URINE NOS [facility] ABDMNAL PAIN UNSPCF SITE Active [facility] BRONCHITIS NOS Active [facility] VOMITING ALONE Active [facility] NAUSEA WITH VOMITING Active [facility] UNSPECIFIED ABDOMINAL PAIN Act jose maria [facility] Medications Medication Details Route Status Patient Instructions Ordering Provider Order Date Source Phenergan 25 mg, Route: IM, ON CE, Dosing Weight 68.636, kg, Priority: STAT, Start date: 08/05/16 5:41:00 CDT, Stop date: 08/05/16 5:41:00 CDT Inactive 08/05/2016 [facility] 0.3 ML Epinephrine 1 MG/ML Prefilled Syringe 0.3 mg, IM, PRN, PRN allergic reaction or asthma, inject into leg for severe allergic reaction, # 1 kit, 0 Refill(s) Active 08/05/2016 [facility] Prednisone 50 MG Oral Tablet 5 0 mg = 1 tab, PO, Daily, X 5 day, # 5 tab, 0 Refill(s) Active 08/05/2016 [facility] Famotidine 20 MG Oral Tablet 2 0 mg = 1 tab, PO, BID, # 28 tab, 0 Refill(s) Active 08/05/2016 [facility] Hydroxyzine Hydrochloride 25 MG Oral Tablet 25 mg = 1 tab, PO, QID, X 14 day, # 56 tab, 0 Refill(s) Active 08/05/2016 [facility] Diphenhydramine 50 mg, Route: IM, ONCE, Dosing Weight 68.636, kg, Priority: STAT, Start date: 08/05/16 3:06:00 CDT, Stop date: 08/05/16 3:06:00 CDT Inactive 08/05/2016 [facility] Famotidine 20 mg, Route: PO, O NCE, Dosing Weight 68.636, kg, Priority: STAT, Start date: 08/05/16 3:06:00 CDT, Stop date: 08/05/16 3:06:00 CDT Inactive 08/05/2016 [facility] methylPREDNISolone SODium SUCCinate 125 mg, Route: IM, ONCE, Dosing Weight 68.636, kg, Priority: STAT, Start date: 08/05/16 3:06:00 CDT, Stop date: 08/05/16 3:06:00 CDT Inactive 08/05/2016 [facility] Phenergan Notes: Do not give I V push. (Same as: Phenergan) No Longer Active 07/13/2016 [facility] Phenergan 12.5 mg, Route: IVPB , ONCE, Dosing Weight 65, kg, PRN Nausea & Vomiting, Start date: 07/13/16 11:16:00 INSTALLATION DRAFTER Inactive 07/13/2016 [facility] Fentanyl 50 microgram, Route: IV, ONCE, Dosing Weight 65, kg, Start date: 07/13/16 11:16:00 INSTALLATION DRAFTER, Stop date: 07/13/16 11:16:00 INSTALLATION DRAFTER Inactive 07/13/2016 [facility] Acetaminophen 325 MG / Hydrocodone Faby trate 5 MG Oral Tablet [Wilber 5/325] 1 tab, PO, Q4H, PRN for pain, X 5 day, # 24 tab, 0 Refill(s) Active 07/13/2016 [facility] Cipro 400 mg, Route: IVPB, ONC E, Dosing Weight 65, kg, Priority: STAT, Start date: 07/13/16 10:18:00 INSTALLATION DRAFTER, Stop date: 07/13/16 10:18:00 INSTALLATION DRAFTER Inactive 07/13/2016 [facility] Flagyl 500 mg, Route: IVPB, ON CE, Dosing Weight 65, kg, Priority: STAT, Start date: 07/13/16 10:18:00 INSTALLATION DRAFTER, Stop date: 07/13/16 10:18:00 INSTALLATION DRAFTER Inactive 07/13/2016 [facility] Acetaminophen 325 MG / Hydrocodone Faby trate 5 MG Oral Tablet [Wilber 5/325] 1 tab, Route: PO, Drug Form: TAB, Dosing Weight 65, kg, ONCE, STAT, Start date: 07/13/16 9:51:00 INSTALLATION DRAFTER, Stop date: 07/13/16 9:51:00 INSTALLATION DRAFTER Inactive 07/13/2016 [facility] Fentanyl 50 microgram, Route: IVP, ONCE, Dosing Weight 65, kg, Priority: STAT, Start date: 07/13/16 7:59:00 INSTALLATION DRAFTER, Stop date: 07/13/16 7:59:00 INSTALLATION DRAFTER Inactive 07/13/2016 [facility] Fentanyl Notes: (Same as: Subl imaze) Preservative free. Inactive 07/13/2016 [facility] Phenergan Notes: Do not give I V push. (Same as: Phenergan) Inactive 07/13/2016 [facility] Zofran 4 mg, Route: IVP, Drug form: INJ, ONCE, Dosing Weight 65, kg, Priority: STAT, Start date: 07/13/16 5:28:00 INSTALLATION DRAFTER, Stop date: 07/13/16 5:28:00 INSTALLATION DRAFTER Inactive 07/13/2016 [facility] Morphine 4 mg, Route: IVP, ONC E, Dosing Weight 65, kg, Priority: STAT, Start date: 07/13/16 5:28:00 INSTALLATION DRAFTER, Stop date: 07/13/16 5:28:00 INSTALLATION DRAFTER Inactive 07/13/2016 [facility] Sodium Chloride 0.154 MEQ/ML Injectable Solution 1,000 mL, 1,000 ml/hr, Infuse Over: 1 hr, Route: IV, 1,000, Drug form: INJ, ONCE, Priority: STAT, Dosing Weight 65 kg, Start date: 07/13/16 5:28:00 INSTALLATION DRAFTER, Duration: 1 doses or times, Stop date: 07/13/16 5:28:00 INSTALLATION DRAFTER Inactive 07/13/2016 [facility] gabapentin 300 MG Oral Capsule 300 mg = 1 cap, PO, TID, # 90 cap, 0 Refill(s) Active 07/13/2016 [facility] mesalamine 500 MG Extended Release Capsule [Pentasa] 500 mg = 1 cap, PO, QID, # 120 cap, 0 Refill(s) Active 07/13/2016 [facility] Acetaminophen 300 MG / Codeine Phosphate 30 MG Oral Tablet [Tylenol with Codeine #3] 1 - 2 tab, PO, Q4H, PRN Pain, X 2 week, # 30 tab, 2 Refill(s) Active 05/10/2016 [facility] Enoxaparin Notes: (Same as: Lo venox) No Longer Active 05/10/2016 [facility] Hydromorphone 0.5 mg, 0.5 mL, Route: IVP, Drug form: INJ, Q5Min, Dosing Weight 68.835, kg, PRN Pain Score 7-10, Start date: 05/09/16 10:00:00 INSTALLATION DRAFTER, Duration: 4 doses or times, Stop date: Limited # of times Inactive 05/09/2016 [facility] Morphine Notes: (Same as:MORPh ine Sulfate) Inactive 05/09/2016 [facility] Naloxone Notes: Same as Narcan Inactive 05/09/2016 [facility] Flumazenil Notes: (Same as: Ro mazicon) Inactive 05/09/2016 [facility] Fentanyl Notes: (Same as: Subl imaze) Preservative free. Inactive 05/09/2016 [facility] Diphenhydramine Notes: (Same a s: Benadryl) Inactive 05/09/2016 [facility] Labetalol Notes: (Same as: Pavel modyne, Trandate) Push over 2 minutes Give bolus over 2-3 minutes. Inactive 05/09/2016 [facility] Acetaminophen Notes: Infuse ov er 15 minutes Do not exceed 4gm/day of acetaminophen MEDICATION WASTE Product Size: 1000 mg Product Wasted: ___ mg Inactive 05/09/2016 [facility] Metoprolol Notes: (Same as: Lo pressor) Push over 2 minutes Inactive 05/09/2016 [facility] Ketorolac 4 days MEDICA TION WASTE Product Size: 30 mg Product Wasted: ___ mg Inactive 05/09/2016 [facility] Ondansetron Notes: (Same as: Manoj parnell) MEDICATION WASTE Product Size: 4 mg Product Wasted: ___ mg Inactive 05/09/2016 [facility] Meperidine Notes: (Same As: De merol) Inactive 05/09/2016 [facility] Hydralazine Notes: (Same as: A presoline) Push over 5 minutes Inactive 05/09/2016 [facility] ondansetron (ANES) Route: IV, Drug form: INJ, ONCE, Stop date: 05/09/16 9:34:00 INSTALLATION DRAFTER Inactive 05/09/2016 [facility] sugammadex (ANES) Route: IV, D rug form: SOLN, ONCE, Stop date: 05/09/16 9:34:00 INSTALLATION DRAFTER Inactive 05/09/2016 [facility] phenylephrine (ANES) Route: IV , Drug form: INJ, ONCE, Stop date: 05/09/16 9:34:00 INSTALLATION DRAFTER Inactive 05/09/2016 [facility] famotidine (ANES) Route: IV, D rug form: INJ, ONCE, Stop date: 05/09/16 9:22:00 INSTALLATION DRAFTER Inactive 05/09/2016 [facility] scopolamine (ANES) Route: [place] sdermal, Drug form: ERFILM, ONCE, Stop date: 05/09/16 9:22:00 INSTALLATION DRAFTER Inactive 05/09/2016 [facility] dexamethasone (ANES) Route: IV , Drug form: INJ, ONCE, Stop date: 05/09/16 9:12:00 INSTALLATION DRAFTER Inactive 05/09/2016 [facility] rocuronium (ANES) Route: IV, D rug form: INJ, ONCE, Stop date: 05/09/16 9:12:00 INSTALLATION DRAFTER Inactive 05/09/2016 [facility] propofol (ANES) Route: IV, David g form: INJ, ONCE, Stop date: 05/09/16 9:12:00 INSTALLATION DRAFTER Inactive 05/09/2016 [facility] fentaNYL (ANES) Route: IV, David g form: INJ, ONCE, Stop date: 05/09/16 9:12:00 INSTALLATION DRAFTER Inactive 05/09/2016 [facility] lidocaine (ANES) Route: IV, Dr ug form: INJ, ONCE, Stop date: 05/09/16 9:12:00 INSTALLATION DRAFTER Inactive 05/09/2016 [facility] midazolam (ANES) Route: IV, Dr ug form: SOLN, ONCE, Stop date: 05/09/16 9:07:00 INSTALLATION DRAFTER Inactive 05/09/2016 [facility] ceFAZolin (ANES) (ANES) Route: IV, Drug form: INJ, Start date: 05/09/16 8:22:00 INSTALLATION DRAFTER, Stop date: 05/09/16 9:22:00 INSTALLATION DRAFTER Inactive 05/09/2016 [facility] LR 1000 mL INJ (ANES) Route: I V, Total Volume: 1,000, Start date: 05/09/16 8:21:00 INSTALLATION DRAFTER, Stop date: 05/09/16 9:21:00 INSTALLATION DRAFTER Inactive 05/09/2016 [facility] D5W 1,000 mL 1,000 mL, Rate: 4 0 ml/hr, Infuse over: 25 hr, Route: IV, Dosing Weight 68.835 kg, Total Volume: 1,000, Start date: 05/08/16 10:53:00 INSTALLATION DRAFTER, Duration: 30 day, Stop date: 06/07/16 10:52:00 INSTALLATION DRAFTER No Longer Active 05/08/2016 [facility] Relistor Notes: Same as: Relis tor Restricted to Palliative Care No Longer Active 05/07/2016 [facility] Miralax Notes: Dissolve in 8 o z of water or juice. (Same as: Miralax) No Longer Active 05/07/2016 [facility] Dilaudid 1 mg, 1 mL, Route: IV P, Drug form: INJ, Q6H, Dosing Weight 68.835, kg, PRN Pain Score 7-10, Start date: 05/06/16 17:35:00 INSTALLATION DRAFTER, Duration: 30 day, Stop date: 06/05/16 17:34:00 INSTALLATION DRAFTER No Longer Active 05/06/2016 [facility] Dilaudid 1 mg, 1 mL, Route: IV P, Drug form: INJ, Q4H, Dosing Weight 68.835, kg, PRN Pain Score 7-10, Start date: 05/06/16 12:47:00 INSTALLATION DRAFTER, Duration: 30 day, Stop date: 06/05/16 12:46:00 INSTALLATION DRAFTER Inactive 05/06/2016 [facility] Hydromorphone 1 mg, 1 mL, Rout e: IV, Drug form: INJ, Q2H, Dosing Weight 66.364, kg, PRN Pain Score 4-6, Start date: 05/04/16 14:30:00 INSTALLATION DRAFTER, Duration: 30 day, Stop date: 06/03/16 14:29:00 INSTALLATION DRAFTER No Longer Active 05/04/2016 [facility] Mesalamine (Pentasa) 500 mg capsule Mesalamine (Pentasa) 500 mg capsule, 1,000 mg, 2 cap, Drug form: MISC, Route: PO, TID, 05/04/16 13:00:00 INSTALLATION DRAFTER, Duration: 30 day, Stop date: 06/03/16 9:00:00 INSTALLATION DRAFTER No Longer Active 05/04/2016 [facility] Propranolol Notes: Give with f ood. (Same as: Inderal) No Longer Active 05/03/2016 [facility] Citrate of Magnesia Notes: (Sa me as: Citrate of Magnesia) Concentration: 1.745 gm / 30 mL Inactive 05/01/2016 [facility] zolpidem Notes: (Same As: Ambi en) No Longer Active 05/01/2016 [facility] Mirtazapine Notes: (Same as:Re kenna) No Longer Active 05/01/2016 [facility] SENOKOT-S Notes: (Same as Gerri ruggierot-S) Equiv. to Marlene- Colace. No Longer Active 05/01/2016 [facility] pt own buprenorphine (Belbuca) pt own buprenorphine (Belbuca), 150 microgram, Drug form: MISC, Route: BUC, TID, PRN Pain Score 4-6, 04/30/16 20:11:00 INSTALLATION DRAFTER, Duration: 30 day, Stop date: 05/30/16 20:10:00 INSTALLATION DRAFTER No Longer Active 05/01/2016 [facility] Propranolol Notes: Take with f ood. Do not crush or chew. (Same as: Inderal LA) N o Longer Active 04/30/2016 [facility] gabapentin 100 MG Oral Capsule Notes: (Same as: Neurontin) No Longer Active 04/30/2016 [facility] Diazepam Notes: (Same as: Sanchez um) No Longer Active 04/30/2016 [facility] Atropine 0.5 mg, 5 mL, Route: IVP, Drug form: INJ, ONCE, Dosing Weight 66.364, kg, PRN Bradycardia, Start date: 04/30/16 14:50:00 INSTALLATION DRAFTER No Longer Active 04/30/2016 [facility] Nitroglycerin 0.4 MG Sublingual Tablet Notes: (Same as:Nitroquick, Nitrostat) "Do Not Crush" Sublingual tablet No Longer Active 04/30/2016 [facility] Chlordiazepoxide Hydrochloride 5 MG / Cl idinium bromide 2.5 MG Oral Capsule Notes: (Same As: Librax) No Longer Active 04/30/2016 [facility] Citrate of Magnesia Notes: (Sa me as: Citrate of Magnesia) Concentration: 1.745 gm / 30 mL Inactive 04/30/2016 [facility] Macrobid Notes: Not recommende d for patients with CrCl<50 ml/min (Same as:Macrobid) With food. No Longer Active 04/30/2016 [facility] Multivitamins with Folic Acid 0 .8 mg oral tablet 1 tab, Route: PO, Drug Form: TAB, Dosing Weight 66.364, kg, Daily, Start date: 04/30/16 9:00:00 INSTALLATION DRAFTER, Duration: 30 day, Stop date: 05/29/16 9:00:00 INSTALLATION DRAFTER No Longer Active 04/30/2016 [facility] Pentasa 500 mg, Route: PO, TID , Dosing Weight 66.364, kg, Start date: 04/30/16 9:00:00 INSTALLATION DRAFTER, Duration: 30 day, Stop date: 05/29/16 17:00:00 INSTALLATION DRAFTER Inactive 04/30/2016 [facility] Folic Acid Notes: (Same as: Fo lvite) No Longer Active 04/30/2016 [facility] Fentanyl 1 patch, Route: TOP, Drug form: ERFILM, Q72H, Dosing Weight 66.364, kg, Start date: 04/30/16 9:00:00 INSTALLATION DRAFTER, Duration: 30 day, Stop date: 05/27/16 9:00:00 INSTALLATION DRAFTER No Longer Active 04/30/2016 [facility] Diazepam 10 mg, Route: PO, David g form: TAB, TID, Dosing Weight 66.364, kg, Start date: 04/30/16 9:00:00 INSTALLATION DRAFTER, Duration: 30 day, Stop date: 05/29/16 17:00:00 INSTALLATION DRAFTER Inactive 04/30/2016 [facility] Citalopram 40 mg, 4 tab, Route : PO, Drug form: TAB, Daily, Dosing Weight 66.364, kg, Start date: 04/30/16 9:00:00 INSTALLATION DRAFTER, Duration: 30 day, Stop date: 05/29/16 9:00:00 INSTALLATION DRAFTER No Longer Active 04/30/2016 [facility] Please bring Pt's Own Buprenorphine to p harmacy for label Please bring Pt's Own Buprenorphine to p harmacy for label, Reminder, Drug form: MISC, Route: MISC, Q12H, 04/30/16 9:00:00 INSTALLATION DRAFTER, Duration: 30 day, Stop date: 05/29/16 21:00:00 INSTALLATION DRAFTER Inactive 04/30/2016 [facility] XIFAXAN Notes: Same as: Xifaxan No Longer Active 04/30/2016 [facility] pantoprazole Notes: Tablet lolis uld not be chewed or crushed. (Same as: Protonix) N o Longer Active 04/30/2016 [facility] Prednisone 1 MG Oral Tablet No kwabena: (Same as: PredniSONE) Take with food. No Longer Active 04/30/2016 [facility] Ondansetron Notes: (Same as: Z ofran) No Longer Active 04/30/2016 [facility] Temazepam Notes: (Same As: Res toril) No Longer Active 04/30/2016 [facility] 72 HR Scopolamine 0.0139 MG/HR Transdermal Patch Notes: Change patch every 72 hours (Same as: Transderm-Scop) No Longer Active 04/30/2016 [facility] Dicyclomine Notes: (Same as: B entyl) No Longer Active 04/30/2016 [facility] Buprenorphine 150 microgram, R oute: BUC, Drug form: FILM, TID, Dosing Weight 66.364, kg, PRN Pain Score 1-3, Start date: 04/30/16 8:27:00 INSTALLATION DRAFTER, Duration: 30 day, Stop date: 05/30/16 8:26:00 INSTALLATION DRAFTER Inactive 04/30/2016 [facility] Promethazine Notes: (Same as: Phenergan) No Longer Active 04/30/2016 [facility] D5NS 1,000 mL 1,000 mL, Rate: 100 ml/hr, Infuse over: 10 hr, Route: IV, Dosing Weight 66.364 kg, Total Volume: 1,000, Start date: 04/30/16 7:08:00 INSTALLATION DRAFTER, Duration: 30 day, Stop date: 05/30/16 7:07:00 INSTALLATION DRAFTER No Longer Active 04/30/2016 [facility] Hydromorphone 1.25 mg, 1.25 mL , Route: IV, Drug form: INJ, Q4H, Dosing Weight 66.364, kg, PRN Pain Score 6-10, Start date: 04/30/16 7:07:00 INSTALLATION DRAFTER, Stop date: 05/30/16 7:06:00 INSTALLATION DRAFTER No Longer Active 04/30/2016 [facility] nitrofurantoin 100 mg, PO, BID , # 14 cap, 0 Refill(s) No Longer Active 04/30/2016 [facility] Pentasa 500 mg, PO, TID, 0 Ref ill(s) Inactive 04/30/2016 [facility] SENOKOT-S 2 tab, PO, Bedtime, 0 Refill(s) Active 04/30/2016 [facility] Classic 1 tab, PO, Da osiris, 0 Refill(s) Active 04/30/2016 [facility] diazepam 10 mg oral tablet 10 mg = 1 tab, PO, TID, 0 Refill(s) Active 04/30/2016 [facility] rifaximin 550 MG Oral Tablet [XIFAXAN] 550 mg = 1 tab, PO, BID, 0 Refill(s) Active 04/30/2016 [facility] ondansetron 8 mg oral tablet 8 mg = 1 tab, PO, TID, 0 Refill(s) Active 04/30/2016 [facility] mirtazapine 7.5 mg oral tablet 7.5 mg = 1 tab, PO, Bedtime, 0 Refill(s) Active 04/30/2016 [facility] Sodium Chloride 0.154 MEQ/ML Injectable Solution 1,000 mL, Rate: 125 ml/hr, Infuse over: 8 hr, Route: IV, Dosing Weight 65.455 kg, Total Volume: 1,000, Start date: 04/30/16 5:55:00 INSTALLATION DRAFTER, Duration: 30 day, Stop date: 05/30/16 5:54:00 INSTALLATION DRAFTER Inactive 04/30/2016 [facility] Saline Flush 0.9% Notes: (Same as: BD Posiflush) No Longer Active 04/30/2016 [facility] Acetaminophen Notes: Do not ex ceed 4 gm/day. (Same as: Tylenol) No Longer Active 04/30/2016 [facility] Ondansetron Notes: (Same as: Manoj parnell) MEDICATION WASTE Product Size: 4 mg Product Wasted: ___ mg No Longer Active 04/30/2016 [facility] Morphine Notes: (Same as:MORPh ine Sulfate) Inactive 04/30/2016 [facility] Morphine 4 mg, Route: IVP, ONC E, Dosing Weight 65.455, kg, Priority: STAT, Start date: 04/30/16 5:01:00 INSTALLATION DRAFTER, Stop date: 04/30/16 5:01:00 INSTALLATION DRAFTER Inactive 04/30/2016 [facility] Ondansetron 4 mg, Route: IVP, Drug form: INJ, ONCE, Dosing Weight 65.455, kg, Priority: STAT, Start date: 04/30/16 5:01:00 INSTALLATION DRAFTER, Stop date: 04/30/16 5:01:00 INSTALLATION DRAFTER Inactive 04/30/2016 [facility] Hydromorphone 1 mg, Route: IVP , ONCE, Dosing Weight 65.455, kg, Priority: STAT, Start date: 04/30/16 0:06:00 INSTALLATION DRAFTER, Stop date: 04/30/16 0:06:00 INSTALLATION DRAFTER Inactive 04/30/2016 [facility] Sodium Chloride 0.154 MEQ/ML Injectable Solution 1,000 mL, 2,000 ml/hr, Infuse Over: 30 minutes, Route: IV, 1,000, Drug form: INJ, ONCE, Priority: STAT, Dosing Weight 65.455 kg, Start date: 04/29/16 19:47:00 INSTALLATION DRAFTER, Duration: 1 doses or times, Stop date: 04/29/16 19:47:00 INSTALLATION DRAFTER Inactive 04/30/2016 [facility] Ondansetron Notes: (Same as: Manoj parnell) MEDICATION WASTE Product Size: 4 mg Product Wasted: ___ mg Inactive 04/30/2016 [facility] Protonix Notes: Tablet should not be chewed or crushed. (Same as: Protonix) No Longer Active 04/13/2016 [facility] Pentasa 1,000 mg, 4 cap, Route : PO, Drug form: ERCAP, QID, Dosing Weight 64.091, kg, Start date: 04/12/16 17:00:00 INSTALLATION DRAFTER, Duration: 30 day, Stop date: 05/12/16 13:00:00 INSTALLATION DRAFTER Inactive 04/12/2016 [facility] fentaNYL 25 mcg/hr transdermal film, extended release 1 patch, TOP, Q72H, 0 Refill(s) Active 04/12/2016 [facility] tizanidine 4 mg oral tablet 4 mg, PO, BID, 0 Refill(s) Active 04/12/2016 [facility] propranolol 80 mg oral capsule, extended release 80 mg = 1 cap, PO, Daily, # 30 cap, 0 Refill(s) Active 04/12/2016 [facility] promethazine 50 mg oral tablet 50 mg = 1 tab, PO, Q6H, PRN Nausea & Vomiting, # 40 tab, 0 Refill(s) Active 04/12/2016 [facility] citalopram 40 mg oral tablet 4 0 mg = 1 tab, PO, Daily, # 30 tab, 0 Refill(s) Active 04/12/2016 [facility] Folic Acid 2 mg, PO, Daily, 0 Refill(s) Active 04/12/2016 [facility] dicyclomine 10 mg oral capsule 20 mg = 2 cap, PO, TID, PRN Spasm, 0 Refill(s) Active 04/12/2016 [facility] predniSONE 10 mg oral tablet S ee Special Instructions, PO, Daily, 12 day regimen: 2 weeks - 30 mg (3 tabs) daily 2 weeks - 20 mg (2 tabs) daily 2 weeks- 1.5tabs daily 2 weeks - 10 mg (1 tab) daily 2 weeks - 1/2 tab daily, # 24 tab, 0 Refill(s) Active 04/12/2016 [facility] temazepam 30 mg oral capsule 3 0 mg = 1 cap, PO, Bedtime, PRN Sleep, # 14 cap, 0 Refill(s) Active 04/12/2016 [facility] gabapentin 100 MG Oral Capsule 100 mg = 1 cap, PO, TID, # 90 cap, 1 Refill(s) Active 04/12/2016 [facility] pantoprazole 40 mg oral enteric coated tablet 40 mg = 1 tab, PO, BID, 0 Refill(s) Active 04/12/2016 [facility] Vitamin B 12 1,000 microgram, IM, q 2 weeks, 0 Refill(s) Active 04/12/2016 [facility] 72 HR Scopolamine 0.0139 MG/HR Transdermal Patch 1.5 mg = 1 patch, TOP, Q72H, PRN Other-See Comments, # 4 ea, 0 Refill(s) Active 04/12/2016 [facility] mesalamine 500 MG Extended Release Capsule [Pentasa] 1,000 mg = 2 cap, PO, TID, # 120 cap, 0 Refill(s) Active 04/12/2016 [facility] Buprenorphine 0.15 MG Buccal Film [Belbuca] 150 microgram = 1 ea, BUC, TID, PRN Pain Score 1-3, 0 Refill(s) Active 04/12/2016 [facility] diazepam 10 mg oral tablet 10 mg = 1 tab, PO, TID, 0 Refill(s) Active 04/12/2016 [facility] zolpidem 12.5 mg oral tablet, extended release 12.5 mg = 1 tab, PO, Bedtime, PRN for sleep, 0 Refill(s) Active 04/12/2016 [facility] Chlordiazepoxide Hydrochloride 5 MG / Cl idinium bromide 2.5 MG Oral Capsule 2 cap, PO, TID-Before Meals, 0 Refill(s) Active 04/12/2016 [facility] Dilaudid 0.5 mg, 0.5 mL, Route : IV, Drug form: INJ, Q4H, Dosing Weight 64.091, kg, PRN Pain Score 6-10, Priority: Routine, Start date: 04/12/16 5:12:00 INSTALLATION DRAFTER, Duration: 30 day, Stop date: 05/12/16 5:11:00 INSTALLATION DRAFTER Inactive 04/12/2016 [facility] Acetaminophen Notes: Do not ex ceed 4 gm/day. (Same as: Tylenol) Inactive 04/12/2016 [facility] Saline Flush 0.9% Notes: (Same as: BD Posiflush) Inactive 04/12/2016 [facility] D5W 1/2NS 1,000 mL 1,000 mL, R ate: 125 ml/hr, Infuse over: 8 hr, Route: IV, Dosing Weight 64.091 kg, Total Volume: 1,000, Start date: 04/12/16 5:12:00 INSTALLATION DRAFTER, Duration: 30 day, Stop date: 05/12/16 5:11:00 INSTALLATION DRAFTER Inactive 04/12/2016 [facility] D5W 1/2NS 1,000 mL 1,000 mL, R ate: 75 ml/hr, Infuse over: 13.3 hr, Route: IV, Dosing Weight 64.091 kg, Total Volume: 1,000, Start date: 04/12/16 5:01:00 INSTALLATION DRAFTER, Duration: 30 day, Stop date: 05/12/16 5:00:00 INSTALLATION DRAFTER Inactive 04/12/2016 [facility] Dilaudid 0.5 mg, Route: IVP, O NCE, Dosing Weight 64.091, kg, Priority: STAT, Start date: 04/12/16 5:00:00 INSTALLATION DRAFTER, Stop date: 04/12/16 5:00:00 INSTALLATION DRAFTER Inactive 04/12/2016 [facility] Dilaudid 0.5 mg, 0.5 mL, Route : IVP, Drug form: INJ, ONCE, Dosing Weight 64.091, kg, Priority: STAT, Start date: 04/12/16 0:24:00 INSTALLATION DRAFTER, Stop date: 04/12/16 0:24:00 INSTALLATION DRAFTER Inactive 04/12/2016 [facility] Phenergan Notes: Do not give I V push. (Same as: Phenergan) Inactive 04/12/2016 [facility] Saline Flush 0.9% Notes: (Same as: BD Posiflush) No Longer Active 04/12/2016 [facility] Acetaminophen 325 MG / Hydrocodone Faby trate 5 MG Oral Tablet [Wilber 5/325] 100.4 F, X 5 day, # 16 tab, 0 Refill(s) Active 04/06/2016 [facility] Dilaudid 1 mg, Route: IV, ONCE , Dosing Weight 64.091, kg, Start date: 04/06/16 2:07:00 INSTALLATION DRAFTER, Stop date: 04/06/16 2:07:00 INSTALLATION DRAFTER Inactive 04/06/2016 [facility] Promethazine Notes: Do not giv e IV push. (Same as: Phenergan) Inactive 04/06/2016 [facility] Dilaudid 1 mg, Route: IV, ONCE , Dosing Weight 64.091, kg, Start date: 04/05/16 21:58:00 INSTALLATION DRAFTER, Stop date: 04/05/16 21:58:00 INSTALLATION DRAFTER Inactive 04/06/2016 [facility] Ondansetron Notes: (Same as: Manoj parnell ODT) Inactive 04/06/2016 [facility] sodium chloride 0.9% 1000 ml INJ 1,000 m L + folic acid 1 mg + Vitamin B1 500 mg + multivitamin 10 m 1,000 mL, Rate: 100 ml/hr, Infuse over: 10.2 hr, Route: IV, Dosing Weight 64.091 kg, Total Volume: 1,015.2, Start date: 04/05/16 18:54:00 INSTALLATION DRAFTER, Duration: 1 doses or times, Stop date: 04/06/16 5:05:00 INSTALLATION DRAFTER Inactive 04/06/2016 [facility] Sodium Chloride 0.154 MEQ/ML Injectable Solution 1,000 mL, Rate: 100 ml/hr, Infuse over: 10 hr, Route: IV, Dosing Weight 64.091 kg, Total Volume: 1,000, thiamine 500mg total, Start date: 04/05/16 18:15:00 INSTALLATION DRAFTER, Duration: 1 doses or times, Stop date: 04/06/16 4:14:00 INSTALLATION DRAFTER Inactive 04/06/2016 [facility] Sodium Chloride 0.154 MEQ/ML Injectable Solution 1,000 mL, Rate: 100 ml/hr, Infuse over: 10 hr, Route: IV, Dosing Weight 64.091 kg, Total Volume: 1,000, Start date: 04/05/16 18:13:00 INSTALLATION DRAFTER, Duration: 1 doses or times, Stop date: 04/06/16 4:12:00 INSTALLATION DRAFTER Inactive 04/06/2016 [facility] Sodium Chloride 0.154 MEQ/ML Injectable Solution 1,000 mL, 2,000 ml/hr, Infuse Over: 30 minutes, Route: IV, 1,000, Drug form: INJ, ONCE, Priority: STAT, Dosing Weight 64.091 kg, Start date: 04/05/16 18:12:00 INSTALLATION DRAFTER, Duration: 1 doses or times, Stop date: 04/05/16 18:12:00 INSTALLATION DRAFTER Inactive 04/06/2016 [facility] Saline Flush 0.9% Notes: (Same as: BD Posiflush) No Longer Active 04/06/2016 [facility] Morphine 4 mg, Route: IVP, ONC E, Dosing Weight 61.818, kg, Priority: STAT, Start date: 03/02/16 22:39:00 CDT, Stop date: 03/02/16 22:39:00 CDT Inactive 03/03/2016 [facility] Acetaminophen 300 MG / Codeine Phosphate 30 MG Oral Tablet [Tylenol with Codeine #3] 1 tab, PO, Q6H, PRN Pain, X 5 day, # 20 tab, 0 Refill(s) Active 03/03/2016 [facility] Cephalexin 500 MG Oral Capsule [Keflex] 500 mg = 1 cap, PO, QID, X 7 day, # 28 cap, 0 Refill(s) Active 03/03/2016 [facility] Ceftriaxone Notes: (Same As: Deni potter). Use with 100 mL NS and infuse over 30 min MEDICATION WASTE Product Size: 1000 mg Product Wasted: ___ mg Inactive 03/03/2016 [facility] Promethazine 12.5 mg, Route: I VPB, ONCE, Dosing Weight 61.818, kg, Priority: STAT, Start date: 03/02/16 22:01:00 CDT, Stop date: 03/02/16 22:01:00 CDT Inactive 03/03/2016 [facility] Ondansetron 4 mg, Route: IVP, Drug form: INJ, ONCE, Dosing Weight 61.818, kg, Priority: STAT, Start date: 03/02/16 20:54:00 CDT, Stop date: 03/02/16 20:54:00 CDT Inactive 03/03/2016 [facility] Morphine 4 mg, Route: IVP, ONC E, Dosing Weight 61.818, kg, Priority: STAT, Start date: 03/02/16 20:54:00 CDT, Stop date: 03/02/16 20:54:00 CDT Inactive 03/03/2016 [facility] Saline Flush 0.9% Notes: (Same as: BD Posiflush) No Longer Active 03/03/2016 [facility] tramadol hydrochloride 50 MG Oral Tablet 50 mg = 1 tab, PO, BID, X 7 day, # 14 tab, 0 Refill(s) Active 03/21/2015 [facility] Morphine 4 mg, Route: IM, Drug form: INJ, ONCE, Dosing Weight 64.545, kg, Priority: STAT, Start date: 03/20/15 22:11:00, Stop date: 03/20/15 22:11:00 Inactive 03/21/2015 [facility] Ketorolac 4 days MEDICA TION WASTE Product Size: 30 mg Product Wasted: ___ mg No Longer Active 09/27/2014 [facility] Acetaminophen 325 MG / butalbital 50 MG / Caffeine 40 MG Oral Tablet [Esgic] Notes: (adkrnrkqmnlby-uipgtlueek-gvmrbcc e 325-50-40mg) Do not exceed 4 gm/day of acetaminophen. (Same as: Esgic, Fioricet) No Longer Active 09/27/2014 [facility] Acetaminophen 300 MG / butalbital 50 MG / Caffeine 40 MG Oral Capsule [Fioricet] Notes: (ymozotqgeresv-trzyjmkkpp-aygfncp e 325-50-40mg) Do not exceed 4 gm/day of acetaminophen. (Same as: Esgic, Fioricet) Inactive 09/26/2014 [facility] Promethazine Notes: (Same as: Phenergan) No Longer Active 09/26/2014 [facility] Promethazine Notes: (Same as: Phenergan) No Longer Active 09/26/2014 [facility] GI cocktail Notes: [place] = antacid with simethicone 22.5 mL - lidocaine viscous 7.5 mL No Longer Active 09/25/2014 [facility] Glucose 50 MG/ML / Sodium Chloride 0.076 9 MEQ/ML Injectable Solution 1,000 mL, Rate: 125 ml/hr, Infuse over: 8 hr, Route: IV, Dosing Weight 65.455 kg, Total Volume: 1,000, Start date: 09/21/14 0:34:00, Stop date: 10/21/14 0:33:00 No Longer Active 09/21/2014 [facility] d50 syringe 12.5 gm, 25 mL, Ro marita: IVP, Drug Form: INJ, Dosing Weight 65.455, kg, PRN, PRN Blood Glucose Results, Start date: 09/21/14 0:17:00, Duration: 30 day, Stop date: 10/21/14 0:16:00 No Longer Active 09/21/2014 [facility] Ondansetron Notes: (Same as: Manoj parnell) MEDICATION WASTE Product Size: 4 mg Product Wasted: ___ mg No Longer Active 09/19/2014 [facility] Phenergan Notes: (Same as: Phe nergan) No Longer Active 09/19/2014 [facility] Oxycodone Hydrochloride 5 MG Oral Tablet Notes: (Same as: Roxicodone) No Longer Active 09/19/2014 [facility] 72 HR Scopolamine 0.0139 MG/HR Transdermal Patch Notes: Change patch every 72 hours (Same as: Transderm-Scop) No Longer Active 09/18/2014 [facility] Nicotine 21 mg, 1 patch, Route : TOP, Drug form: ERFILM, Daily, Dosing Weight 65.455, kg, Start date: 09/17/14 12:00:00, Duration: 30 day, Stop date: 10/17/14 9:00:00 No Longer Active 09/17/2014 [facility] Sodium Chloride 0.154 MEQ/ML Injectable Solution 500 mL, Rate: 25 ml/hr, Infuse over: 20 hr, Route: IV, Dosing Weight 65.455 kg, Total Volume: 500, Start date: 09/16/14 12:22:00, Duration: 1 day, Stop date: 09/17/14 12:21:00 Inactive 09/16/2014 [facility] Protonix Notes: Tablet should not be chewed or crushed. (Same as: Protonix) No Longer Active 09/16/2014 [facility] Amitriptyline Notes: (Same as: Elavil) No Longer Active 09/15/2014 [facility] Dilaudid 1 mg, 1 mL, Route: IV , Drug form: INJ, Q4H, Dosing Weight 65.455, kg, PRN Pain Score 7-10, Start date: 09/15/14 10:53:00, Duration: 30 day, Stop date: 10/15/14 10:52:00 No Longer Active 09/15/2014 [facility] Celexa Notes: (Same As: CeleXA) No Longer Active 09/15/2014 [facility] Hydroxyzine Notes: (Same as: A tarax) Avoid alcohol. No Longer Active 09/15/2014 [facility] Diazepam Notes: (Same as: Sanchez um) No Longer Active 09/14/2014 [facility] Dilaudid 2 mg, 2 mL, Route: IV , Drug form: INJ, Q4H, Dosing Weight 65.455, kg, PRN Pain Score 7-10, Start date: 09/14/14 13:03:00, Stop date: 10/14/14 13:02:00 N o Longer Active 09/14/2014 [facility] Acetaminophen 325 MG / Hydrocodone Faby trate 10 MG Oral Tablet [Wilber 10/325] Notes: Do not exceed 4gm/day of acetamin ophen. (Same as: Wilber 325/10) No Longer Active 09/14/2014 [facility] zolpidem Notes: (Same As: Ambi en) No Longer Active 09/14/2014 [facility] Diphenhydramine Notes: (Same a s: Benadryl) Inactive 09/14/2014 [facility] Diazepam Notes: (Same as: Sanchez nolasco) Inactive 09/14/2014 [facility] Celexa Notes: (Same As: CeleXA) No Longer Active 09/14/2014 [facility] Saline Flush 0.9% Notes: prese rvative free. No Longer Active 09/14/2014 [facility] Sodium Chloride 0.154 MEQ/ML Injectable Solution 1,000 mL, Rate: 60 ml/hr, Infuse over: 16.7 hr, Route: IV, Dosing Weight 60 kg, Total Volume: 1,000, Start date: 09/14/14 2:59:00, Stop date: 10/14/14 2:58:00 No Longer Active 09/14/2014 [facility] Ondansetron Notes: (Same as: Manoj parnell) MEDICATION WASTE Product Size: 4 mg Product Wasted: ___ mg No Longer Active 09/14/2014 [facility] Morphine Notes: (Same as:MORPh ine Sulfate) Inactive 09/14/2014 [facility] Dilaudid 1 mg, 1 mL, Route: IV P, Drug form: INJ, Q6H, Dosing Weight 60, kg, PRN Pain Score 6-10, Priority: STAT, Start date: 09/14/14 2:34:00, Duration: 30 day, Stop date: 10/14/14 2:33:00 Inactive 09/14/2014 [facility] Morphine Notes: (Same as:MORPh ine Sulfate) Inactive 09/14/2014 [facility] Ambien Notes: (Same As: Ambien) Inactive 09/14/2014 [facility] Phenergan Notes: Do not give I V push. (Same as: Phenergan) No Longer Active 09/14/2014 [facility] Zofran Notes: (Same as: Zofran ) MEDICATION WASTE Product Size: 4 mg Product Wasted: ___ mg Inactive 09/14/2014 [facility] pantoprazole Notes: For IV pus h reconstitute with 10 ml 0.9% sodium chloride and push over 2 minutes. (Same as: Protonix) No Longer Active 09/14/2014 [facility] normal saline 0.9% IV 1,000 mL 1,000 mL, Rate: 75 ml/hr, Infuse over: 13.3 hr, Route: IV, Dosing Weight 60 kg, Total Volume: 1,000, Start date: 09/14/14 2:25:00, Duration: 30 day, Stop date: 10/14/14 2:24:00 Inactive 09/14/2014 [facility] Benadryl 12.5 mg, Route: IVP, ONCE, Dosing Weight 60, kg, Priority: STAT, Start date: 09/14/14 2:12:00, Stop date: 09/14/14 2:12:00 Inactive 09/14/2014 [facility] Reglan 10 mg, Route: IVP, Drug form: INJ, ONCE, Dosing Weight 60, kg, Priority: STAT, Start date: 09/14/14 1:31:00, Stop date: 09/14/14 1:31:00 Inactive 09/14/2014 [facility] Acetaminophen 325 MG / Hydrocodone Faby trate 10 MG Oral Tablet [Wilber 10/325] 1-2 tab, PO, Q4-6H, PRN Pain, X 5 day, # 15 tab, 0 Refill(s) No Longer Active 09/14/2014 [facility] Promethazine Hydrochloride 25 MG Rectal Suppository [Phenergan] 25 mg = 1 supp, TX, Q6H, PRN Nausea & Vo miting, X 3 day, # 9 supp, 0 Refill(s) No Longer Active 09/14/2014 [facility] Promethazine Hydrochloride 25 MG Oral Ta blet [Phenergan] 25 mg = 1 tab, PO, Q6H, PRN Nausea, X 4 day, # 15 tab, 0 Refill(s) No Longer Active 09/14/2014 [facility] Acetaminophen 325 MG / Hydrocodone Faby trate 10 MG Oral Tablet [Wilber 10/325] 1 tab, Route: PO, Drug Form: TAB, Dosing Weight 60, kg, ONCE, STAT, Start date: 09/14/14 0:58:00, Stop date: 09/14/14 0:58:00 Inactive 09/14/2014 [facility] Phenergan Notes: Do not give I V push. (Same as: Phenergan) No Longer Active 09/14/2014 [facility] Dilaudid 2 mg, 2 mL, Route: IV P, Drug form: INJ, ONCE, Dosing Weight 60, kg, Priority: STAT, Start date: 09/13/14 23:58:00, Stop date: 09/13/14 23:58:00 No Longer Active 09/14/2014 [facility] Phenergan 12.5 mg, Route: IVPB , ONCE, Dosing Weight 60, kg, Priority: STAT, Start date: 09/13/14 22:17:00, Stop date: 09/13/14 22:17:00 Inactive 09/14/2014 [facility] Sodium Chloride 0.154 MEQ/ML Injectable Solution 1,000 mL, Infuse Over: 1 hr, Route: IV, ONCE, Priority: STAT, Dosing Weight 60 kg, Start date: 09/13/14 22:17:00, Duration: 1 doses or times, Stop date: 09/13/14 22:17:00 Inactive 09/14/2014 [facility] Saline Flush 0.9% Notes: prese rvative free. No Longer Active 09/14/2014 [facility] Morphine 6 mg, Route: IVP, ONC E, Dosing Weight 60, kg, Priority: STAT, Start date: 09/13/14 22:17:00, Stop date: 09/13/14 22:17:00 Inactive 09/14/2014 [facility] Acetaminophen 325 MG / Hydrocodone Faby trate 5 MG Oral Tablet [Wilber 5/325] 1-2 tab, PO, Q4-6H, Pain, # 12 tab, 0 Re fill(s) Active 02/09/2014 [facility] Acetaminophen 325 MG / Hydrocodone Faby trate 5 MG Oral Tablet [Wilber 5/325] 1 tab, Route: PO, Dosing Weight 66.364, kg, ONCE, Start date: 02/09/14 10:08:00, Stop date: 02/09/14 10:08:00 Inactive 02/09/2014 [facility] Miralax Notes: Dissolve in 8 o z of water or juice. (Same as: Miralax) Inactive 2013 [facility] Promethazine Notes: Do not giv e IV push. (Same as: Phenergan) No Longer Active 12/16/2013 [facility] Depacon Notes: Dilute in at le ast 50ml D5W or NS. Infusion rate = 20 mg/min (Same As: Depacon) Inactive 12/13/2013 [facility] Dextrose 50% Syringe 25 gm, 50 mL, Route: IV, Drug Form: INJ, Dosing Weight 63.636, kg, PRN, PRN Blood Glucose Results, Start date: 12/12/13 12:48:00, Duration: 30 day, Stop date: 01/11/14 12:47:00 No Longer Active 12/12/2013 [facility] gabapentin Notes: (Same as: Ne urontin) No Longer Active 12/12/2013 [facility] Protonix Notes: Tablet should not be chewed or crushed. (Same as: Protonix) No Longer Active 12/11/2013 [facility] Dilaudid 0.8 mg, 0.8 mL, Route : IV, Drug form: INJ, Q6H, Dosing Weight 63.636, kg, PRN Severe Pain, Start date: 12/11/13 11:22:00, Stop date: 01/10/14 11:21:00 No Longer Active 12/11/2013 [facility] Ketorolac 4 days No Longer Active 12/11/2013 [facility] Phenergan Notes: Do not give I V push. (Same as: Phenergan) Inactive 12/11/2013 [facility] Dexamethasone 10 mg, 2.5 mL, R oute: IVPB, Drug form: INJ, ONCE, Dosing Weight 63.636, kg, Start date: 12/11/13 10:08:00, Stop date: 12/11/13 10:08:00 Inactive 12/11/2013 [facility] Miralax Notes: Dissolve in 8 o z of water or juice. (Same as: Miralax) No Longer Active 12/11/2013 [facility] Multiple Vitamins with Minerals oral tablet Notes: (Same as:Thera-M, Theragran-M) Give with food. No Longer Active 12/11/2013 [facility] Celexa Notes: (Same As: CeleXA) No Longer Active 12/11/2013 [facility] Diazepam Notes: (Same as: Sanchez um) No Longer Active 12/11/2013 [facility] zolpidem 10 mg, Route: PO, David g form: TAB, Bedtime, Dosing Weight 63.636, kg, PRN as needed for sleep, Start date: 12/11/13 5:46:00, Duration: 30 day, Stop date: 01/10/14 5:45:00 Inactive 12/11/2013 [facility] Hyoscyamine Notes: (Same as: L evsin) Take 30 min before meal No Longer Active 12/11/2013 [facility] Chlordiazepoxide Hydrochloride 25 MG Oral Capsule 25 mg, 1 cap, Route: PO, Drug form: CAP, QID, Dosing Weight 63.636, kg, PRN as needed for anxiety, Start date: 12/11/13 5:45:00, Duration: 30 day, Stop date: 01/10/14 5:44:00 No Longer Active 12/11/2013 [facility] Ambien Notes: (Same As: Ambien) No Longer Active 12/11/2013 [facility] Protonix Notes: For IV push re constitute with 10 ml 0.9% sodium chloride and push over 2 minutes. (Same as: Protonix) No Longer Active 12/10/2013 [facility] Promethazine Notes: Do not giv e IV push. (Same as: Phenergan) No Longer Active 12/10/2013 [facility] Dilaudid 0.5 mg, 0.5 mL, Route : IV, Drug form: INJ, Q3H, Dosing Weight 64.545, kg, PRN Pain, Start date: 12/10/13 11:33:00, Duration: 30 day, Stop date: 01/09/14 11:32:00 No Longer Active 12/10/2013 [facility] D5W 1/2NS + KCL 20mEq/L 1000ml (Premix) 1,000 mL Notes: PREMIX IV - Do Not Alter No Longer Active 12/10/2013 [facility] Saline Flush 0.9% Notes: Same as: BD Posiflush Sterile No Longer Active 12/10/2013 [facility] Docusate Notes: (Same as: Cola ce) (Do Not Crush) No Longer Active 12/10/2013 [facility] Acetaminophen Notes: Do not ex ceed 4 gm/day. (Same as: Tylenol) No Longer Active 12/10/2013 [facility] Haldol Notes: (Same as: Haldol) Inactive 12/07/2013 [facility] Lorazepam Notes: (Same as: Ati van) Inactive 12/07/2013 [facility] Valproic Acid 100 MG/ML Injectable Solution Notes: Dilute in at least 50ml D5W or NS. Infusion rate = 20 mg/min (Same As: Depacon) No Longer Active 12/07/2013 [facility] Metoclopramide Notes: (Same as : Reglan) No Longer Active 12/07/2013 [facility] Diphenhydramine Notes: (Same a s: Benadryl) No Longer Active 12/07/2013 [facility] Ketorolac 4 days No Longer Active 12/07/2013 [facility] Sodium Chloride 0.154 MEQ/ML Injectable Solution 1,000 mL, 1,000 ml/hr, Infuse Over: 1 hr, Route: IV, 1,000, Drug form: INJ, ONCE, Priority: STAT, Dosing Weight 64.545 kg, Start date: 12/06/13 23:43:00, Duration: 1 doses or times, Stop date: 12/06/13 23:43:00 No Longer Active 12/07/2013 [facility] pantoprazole Notes: Tablet lolis uld not be chewed or crushed. (Same as: Protonix) Inactive 09/24/2013 [facility] promethazine 25 mg rectal suppository 25 mg = 1 supp, TX, Q4H, Nausea & Vomiting, # 10 supp, 0 Refill(s) Active 09/24/2013 [facility] Acetaminophen 325 MG / Hydrocodone Faby trate 10 MG Oral Tablet [Wilber 10/325] 1 tab, PO, Q4H, for pain, # 50 tab, 0 Re fill(s) Active 09/24/2013 [facility] Zantac 300 300 mg, Route: PO, Drug form: TAB, Bedtime, Dosing Weight 65.455, kg, Start date: 09/23/13 21:00:00, Duration: 30 day, Stop date: 10/22/13 21:00:00 Inactive 09/24/2013 [facility] Pepcid Notes: (Same as: Pepcid) No Longer Active 09/24/2013 [facility] Ativan Notes: (Same as: Ativan) No Longer Active 09/24/2013 [facility] Phenergan Notes: (Same as: Phe nergan) No Longer Active 09/23/2013 [facility] Acetaminophen 325 MG / Hydrocodone Faby trate 5 MG Oral Tablet [Wilber 5/325] Notes: (Same as: Wilber 325/5) Do not ex ceed 4gm/day of acetaminophen. No Longer Activ e 09/23/2013 [facility] magnesium citrate Notes: (Same as: Citrate of Magnesia) Inactive 09/21/2013 [facility] pantoprazole Notes: Tablet lolis uld not be chewed or crushed. (Same as: Protonix) N o Longer Active 09/21/2013 [facility] Ativan Notes: (Same as: Ativan) No Longer Active 09/21/2013 [facility] Dextrose 50% Syringe 25 gm, 50 mL, Route: IV, Drug Form: INJ, Dosing Weight 65.455, kg, PRN, PRN Blood Glucose Results, Start date: 09/20/13 13:48:00, Duration: 30 day, Stop date: 10/20/13 13:47:00, blood sugar <50 No Longer Active 09/20/2013 [facility] Phenergan Notes: Do not give I V push. (Same as: Phenergan) No Longer Active 09/20/2013 [facility] Miralax Notes: Dissolve in 8 o z of water or juice. (Same as: Miralax) No Longer Active 09/19/2013 [facility] Phenergan Notes: (Same as: Phe nergan) No Longer Active 09/19/2013 [facility] Protonix Notes: For IV push re constitute with 10 ml 0.9% sodium chloride and push over 2 minutes. (Same as: Protonix) No Longer Active 09/19/2013 [facility] Celexa Notes: (Same As: CeleXA) No Longer Active 09/19/2013 [facility] Phenergan Notes: Do not give I V push. (Same as: Phenergan) No Longer Active 09/19/2013 [facility] Phenergan Notes: Do not give I V push. (Same as: Phenergan) No Longer Active 09/19/2013 [facility] Chlordiazepoxide Hydrochloride 25 MG Oral Capsule 25 mg, 1 cap, Route: PO, Drug form: CAP, QID, Dosing Weight 65.455, kg, Start date: 09/18/13 21:00:00, Duration: 30 day, Stop date: 10/18/13 17:00:00 No Longer Active 09/19/2013 [facility] Ambien Notes: (Same As: Ambien) No Longer Active 09/19/2013 [facility] Hydroxyzine Notes: (Same as: V istaril) No Longer Active 09/19/2013 [facility] Temazepam Notes: (Same As: Res toril) Inactive 09/18/2013 [facility] Dilaudid 1 mg, 1 mL, Route: IV , Drug form: INJ, Q3H, Dosing Weight 69.545, kg, PRN Pain Score 7-10, Start date: 09/18/13 16:45:00, Duration: 30 day, Stop date: 10/18/13 16:44:00 No Longer Active 09/18/2013 [facility] Acetaminophen Notes: Do not ex ceed 4 gm/day. (Same as: Tylenol) No Longer Active 09/18/2013 [facility] Docusate Notes: (Same as: Cola ce) (Do Not Crush) No Longer Active 09/18/2013 [facility] Saline Flush 0.9% Notes: (Same as: BD Posiflush) No Longer Active 09/18/2013 [facility] D5W 1/2NS + KCL 20mEq/L 1000ml (Premix) 1,000 mL Notes: PREMIX IV - Do Not Alter No Longer Active 09/18/2013 [facility] Acetaminophen 325 MG / Hydrocodone Faby trate 10 MG Oral Tablet [Wilber 10/325] 1 tab, PO, Q4H, for pain, # 50 tab, 0 Re fill(s) Active 09/13/2013 [facility] Acetaminophen 65 MG/ML / Oxycodone [place] chloride 1 MG/ML Oral Solution 5 ml, PO, Q4H, for pain, # 480 mL, 0 Ref ill(s) Active 09/13/2013 [facility] Acetaminophen 65 MG/ML / Oxycodone [place] chloride 1 MG/ML Oral Solution 5 ml, PO, Q4H, for pain, # 480 mL, 0 Ref ill(s) Active 09/13/2013 [facility] Ciprofloxacin 500 MG Oral Tablet [Cipro] 500 mg = 1 tab, PO, Q12H, # 28 tab, 0 Refill(s) Active 09/13/2013 [facility] Acetaminophen 325 MG / Hydrocodone Faby trate 5 MG Oral Tablet [Wilber 5/325] 1 tab, Route: PO, Dosing Weight 69.545, kg, ONCE, Start date: 09/13/13 2:44:00, Stop date: 09/13/13 2:44:00 Inactive 09/13/2013 [facility] Acetaminophen 33.3 MG/ML / Hydrocodone B itartrate 0.5 MG/ML Oral Solution 15 ml, PO, Q4H, for pain, # 60 mL, 0 Ref ill(s) Active 09/13/2013 [facility] Ondansetron 8 MG Disintegrating Tablet [Zofran] Special Instructions: Dissolve tab under tongue Active 09/13/2013 [facility] promethazine 50 mg rectal suppository 50 mg = 1 supp, TX, Q6H, Nausea & Vomiting, # 12 supp, 0 Refill(s) Active 09/13/2013 [facility] Ciprofloxacin Notes: Do not re frigerate Inactive 09/13/2013 [facility] Sodium Chloride 0.154 MEQ/ML Injectable Solution 1,000 mL, 1,000 ml/hr, Infuse Over: 1 hr, Route: IV, 1,000, Drug form: INJ, ONCE, Priority: STAT, Dosing Weight 69.545 kg, Start date: 09/12/13 23:34:00, Duration: 1 doses or times, Stop date: 09/12/13 23:34:00 Inactive 09/13/2013 [facility] d50 syringe Special Instructio ns: 25 ml = 12.5 gm No Longer Active 09/13/2013 [facility] Dilaudid 0.5 mg, 0.5 mL, Route : IV, Drug form: INJ, Q3H, Dosing Weight 69.545, kg, Start date: 09/12/13 23:00:00, Duration: 30 day, Stop date: 10/12/13 20:00:00 No Longer Active 09/13/2013 [facility] Promethazine Notes: Do not giv e IV push. (Same as: Phenergan) Inactive 09/13/2013 [facility] Ondansetron Notes: (Same as: Manoj parnell) Inactive 09/13/2013 [facility] Sodium Chloride 0.154 MEQ/ML Injectable Solution 1,000 mL, 1,000 ml/hr, Infuse Over: 1 hr, Route: IV, 1,000, Drug form: INJ, ONCE, Priority: STAT, Dosing Weight 69.545 kg, Start date: 09/12/13 20:50:00, Duration: 1 doses or times, Stop date: 09/12/13 20:50:00 Inactive 09/13/2013 [facility] Famotidine Notes: (Same as: Isaías pcid) Can be dilute in 5- 10cc NS IVP: Slow IV push over at least 2 minutes. Inactive 09/13/2013 [facility] Acetaminophen 325 MG / Hydrocodone Faby trate 10 MG Oral Tablet 1 tab, PO, Q4H, Pain Score 4-6, # 10 tab , 0 Refill(s) Active 09/10/2013 [facility] promethazine 25 mg rectal suppository 25 mg = 1 supp, TX, Q4H, Nausea & Vomiting, # 10 supp, 0 Refill(s) Active 09/10/2013 [facility] Ondansetron 0.8 MG/ML Oral Solution [Zofran] Notes: (Same as: Zofran ODT) No Longe r Active 09/09/2013 [facility] Phenergan Notes: (Same as: Phe nergan) No Longer Active 09/09/2013 [facility] Thiamine Notes: (Same As: Danica min B1) No Longer Active 09/09/2013 [facility] Metoclopramide 10 MG Oral Tablet [Reglan] Notes: (Same as: Reglan) Take 30 min before meals No Longer Active 09/08/2013 [facility] promethazine 12.5 mg rectal suppository 12.5 mg = 1 supp, TX, Q4H, Nausea & Vomiting, # 12 can, 0 Refill(s) Active 09/07/2013 [facility] Phenergan Notes: (Same as: Phe nergan) No Longer Active 09/07/2013 [facility] Protonix Notes: Tablet should not be chewed or crushed. (Same as: Protonix) No Longer Active 09/06/2013 [facility] Actigall Notes: (Same As: Acti gall) No Longer Active 09/06/2013 [facility] hydrocortisone acetate 25 MG Rectal Supp ository [Anusol HC] Notes: (Same as: Anusol-HC, Hemorrhoidal HC) No Longer Active 09/05/2013 [facility] Metronidazole 500 MG Oral Tablet Notes: (Same as: Flagyl) Take with food/ avoid alcohol No Longer Active 09/05/2013 [facility] Sodium Chloride 0.154 MEQ/ML Injectable Solution 1,000 mL, Rate: 25 ml/hr, Infuse over: 40 hr, Route: IV, Dosing Weight 67.273 kg, Total Volume: 1,000, Start date: 09/05/13 12:09:00, Duration: 1 day, Stop date: 09/06/13 12:08:00 Inactive 09/05/2013 [facility] D5NS 1,000 mL 1,000 mL, Rate: 125 ml/hr, Infuse over: 8 hr, Route: IV, Dosing Weight 67.273 kg, Total Volume: 1,000, Start date: 09/04/13 20:05:00, Duration: 30 day, Stop date: 10/04/13 20:04:00 No Longer Active 09/05/2013 [facility] Golytely Notes: (polyethylene glycol electrolyte solution 4 Liter bottle) (Same as: Golytely, Colyte) Inactive 09/04/2013 [facility] Miralax Notes: Dissolve in 8 o z of water or juice. (Same as: Miralax) No Longer Active 09/03/2013 [facility] Docusate Sodium 100 MG Oral Capsule 100 mg, 1 cap, Route: PO, Drug form: CAP, BID, Dosing Weight 67.273, kg, PRN Constipation, Start date: 09/03/13 12:48:00, Duration: 30 day, Stop date: 10/03/13 12:47:00 Inactive 09/03/2013 [facility] Protonix Notes: For IV push re constitute with 10 ml 0.9% sodium chloride and push over 2 minutes. (Same as: Protonix) No Longer Active 09/03/2013 [facility] Hydroxyzine Notes: (Same as: A tarax) Avoid alcohol. No Longer Active 09/03/2013 [facility] Ambien Notes: (Same As: Ambien) No Longer Active 09/03/2013 [facility] Benadryl Notes: (Same as: [place] dryl) No Longer Active 09/02/2013 [facility] Hyoscyamine Notes: (Same as: L evsin) Take 30 min before meal No Longer Active 09/02/2013 [facility] Dilaudid 1 mg, 1 mL, Route: IV , Drug form: INJ, Q4H, Dosing Weight 67.273, kg, PRN Pain Score 7-10, Start date: 09/02/13 17:35:00, Duration: 30 day, Stop date: 10/02/13 17:34:00 No Longer Active 09/02/2013 [facility] Diazepam Notes: (Same as: Sanchez um) No Longer Active 09/02/2013 [facility] Potassium Chloride 20 MEQ Extended Release Tablet Notes: (Same as: K-Dur 20) "Do Not Crush" With food and full glass of water No Longer Active 09/02/2013 [facility] Ascorbic Acid / Beta Carotene / cuprous oxide / Lutein / sodium selenate / Vitamin E / Zinc Oxide Notes: (Same as:Thera-M, Theragran-M) Give with food. No Longer Active 09/02/2013 [facility] Celexa Notes: (Same As: CeleXA) No Longer Active 09/02/2013 [facility] promethazine 25 mg oral tablet 25 mg = 1 tab, PO, Q6H, Nausea & Vomiting, # 15 tab, 0 Refill(s) No Longer Active 09/02/2013 [facility] zolpidem 10 mg oral tablet 10 mg = 1 tab, PO, Bedtime, for sleep, 0 Refill(s) Active 09/02/2013 [facility] Miralax 17 gm, PO, Daily, 0 Re fill(s) Active 09/02/2013 [facility] hyoscyamine 0.125 mg sublingual tablet 0.125 mg = 1 tab, SL, Q6H, GI Upset, 0 Refill(s) Active 09/02/2013 [facility] Phenergan Notes: Do not give I V push. (Same as: Phenergan) No Longer Active 09/02/2013 [facility] Ondansetron Notes: (Same as: Manoj parnell) Inactive 09/02/2013 [facility] Morphine Notes: (Same as:MORPh ine Sulfate) Inactive 09/02/2013 [facility] Docusate Notes: (Same as: Cola ce) (Do Not Crush) No Longer Active 09/02/2013 [facility] Saline Flush 0.9% Notes: (Same as: BD Posiflush) No Longer Active 09/02/2013 [facility] Sodium Chloride 0.0769 MEQ/ML Injectable Solution 1,000 mL, Rate: 125 ml/hr, Infuse over: 8 hr, Route: IV, Dosing Weight 67.273 kg, Total Volume: 1,000, Start date: 09/02/13 8:21:00, Duration: 30 day, Stop date: 10/02/13 8:20:00 Inactive 09/02/2013 [facility] Acetaminophen Notes: Max aceta minophen = 4000mg/day (4 gm/day). (Same as: Tylenol) N o Longer Active 09/02/2013 [facility] Acetaminophen 325 MG / Hydrocodone Faby trate 10 MG Oral Tablet Notes: Do not exceed 4gm/day of acetamin ophen. (Same as: Wilber 325/10) No Longer Active 09/02/2013 [facility] Acetaminophen 325 MG / Hydrocodone Faby trate 5 MG Oral Tablet Notes: (Same as: Wilber 325/5) Do not ex ceed 4gm/day of acetaminophen. No Longer Active 09/02/2013 [facility] Chlordiazepoxide Hydrochloride 25 MG Oral Capsule 25 mg, 1 cap, Route: PO, Drug form: CAP, QID, Dosing Weight 67.273, kg, PRN as needed for anxiety, Start date: 09/02/13 7:30:00, Duration: 30 day, Stop date: 10/02/13 7:29:00 No Longer Active 09/02/2013 [facility] normal saline 0.9% IV 1,000 mL 1,000 mL, Rate: 125 ml/hr, Infuse over: 8 hr, Route: IV, Dosing Weight 67.273 kg, Total Volume: 1,000, Start date: 09/02/13 7:29:00, Duration: 30 day, Stop date: 10/02/13 7:28:00 No Longer Active 09/02/2013 [facility] Zofran 4 mg, Route: IVP, Drug form: INJ, ONCE, Dosing Weight 67.273, kg, Priority: STAT, Start date: 09/02/13 4:03:00, Stop date: 09/02/13 4:03:00 Inactive 09/02/2013 [facility] Promethazine Hydrochloride 25 MG Oral Ta blet [Phenergan] 25 mg = 1 tab, PO, Q4H, Nausea, # 15 tab, 0 Refill(s) Inactive 09/02/2013 [facility] Dilaudid 1 mg, Route: IV, ONCE , Dosing Weight 67.273, kg, Start date: 09/02/13 2:49:00, Stop date: 09/02/13 2:49:00 Inactive 09/02/2013 [facility] Phenergan 12.5 mg, Route: IVPB , ONCE, Dosing Weight 67.273, kg, Priority: STAT, Start date: 09/02/13 2:49:00, Stop date: 09/02/13 2:49:00 Inactive 09/02/2013 [facility] Hydromorphone 1 mg, Route: IVP , ONCE, Dosing Weight 67.273, kg, Priority: STAT, Start date: 09/02/13 0:51:00, Stop date: 09/02/13 0:51:00 Inactive 09/02/2013 [facility] Phenergan Notes: Do not give I V push. (Same as: Phenergan) No Longer Active 09/02/2013 [facility] Sodium Chloride 0.154 MEQ/ML Injectable Solution 1,000 mL, 1000 ml/hr, Infuse Over: 1 hr, Route: IV, 1,000, Drug form: INJ, ONCE, Priority: STAT, Dosing Weight 67.273 kg, Start date: 09/01/13 23:58:00, Duration: 1 doses or times, Stop date: 09/01/13 23:58:00 No Longer Active 09/02/2013 [facility] Saline Flush 0.9% Notes: (Same as: BD Posiflush) No Longer Active 09/02/2013 [facility] pantoprazole 40 mg oral enteric coated tablet 40 mg = 1 tab, PO, Daily, # 30 tab, 0 Refill(s) On Hold 09/01/2013 [facility] promethazine 6.25 mg/5 mL oral syrup 18.75 mg = 15 mL, PO, QID, as needed for nausea/vomiting, # 500 mL, 0 Refill(s) On Hold 09/01/2013 [facility] Ondansetron Notes: (Same as: Manoj parnell ODT) Inactive 09/01/2013 [facility] Acetaminophen 325 MG / Hydrocodone Faby trate 10 MG Oral Tablet Notes: Do not exceed 4gm/day of acetamin ophen. (Same as: Wilber 325/10) Inactive 09/01/2013 [facility] Solu-Medrol Notes: (Same as:So kristopher-MEDROL, A-Methapred) Inactive 09/01/2013 [facility] Diphenhydramine Notes: (Same a s: Benadryl) Inactive 09/01/2013 [facility] Metoclopramide Notes: (Same as : Reglan) Inactive 09/01/2013 [facility] Ondansetron Notes: (Same as: Z ofran) Inactive 09/01/2013 [facility] Hydromorphone 0.5 mg, 0.5 mL, Route: IVP, Drug form: INJ, ONCE, Dosing Weight 63.636, kg, Priority: STAT, Start date: 09/01/13 0:43:00, Stop date: 09/01/13 0:43:00 Inactive 09/01/2013 [facility] Sodium Chloride 0.154 MEQ/ML Injectable Solution 1,000 mL, 1,000 ml/hr, Infuse Over: 1 hr, Route: IV, 1,000, Drug form: INJ, ONCE, Priority: STAT, Dosing Weight 63.636 kg, Start date: 09/01/13 0:43:00, Duration: 1 doses or times, Stop date: 09/01/13 0:43:00 Inactive 09/01/2013 [facility] albuterol 90 mcg/inh inhalation aerosol 2 puff, INHALATION, QID, wheezing, # 1 can, 0 Refill(s) Active [facility] 06/10/2013 [facility] DuoNeb inhalation solution 3 m l, INHALATION, QID, Wheezing, # 60 ea, 0 Refill(s) Active [facility] 06/10/2013 [facility] docusate sodium 100 mg oral capsule 100 mg = 1 cap, PO, Daily, as needed for constipation, # 100 cap, 3 Refill(s) Active Jim 06/10/2013 [facility] polyethylene glycol 3350 oral powder for reconstitutio n 17 gm, PO, BID, # 527 gm, 1 Refill(s) Active Vikki paneni 06/10/2013 [facility] predniSONE 40 mg, 2 tab, Route : PO, Drug form: TAB, Daily, Dosing Weight 66.364, kg, Start date: 06/10/13 9:00:00, Duration: 30 day, Stop date: 07/09/13 9:00:00Take with food. Inactive Ra him 06/10/2013 [facility] Nebulizer 1 ea, MISC, ONCALL, # 1 ea, 0 Refill(s) Active [facility] 06/10/2013 [facility] zolpidem 10 mg oral tablet 10 mg = 1 tab, PO, Bedtime, # 7 tab, 0 Refill(s) Active [facility] 06/10/2013 [facility] predniSONE 20 mg oral tablet 4 0 mg = 2 tab, PO, Daily, # 10 tab, 0 Refill(s) Active [facility] 06/10/2013 [facility] levofloxacin 750 mg oral tablet 750 mg = 1 tab, PO, Daily, # 5 tab, 0 Refill(s) Active [facility] 06/10/2013 [facility] Promethazine DM oral syrup 5 m L, PO, Q6H, for cough, # 30 mL, 0 Refill(s) Active [facility] 06/10/2013 [facility] Bentyl 10 mg, 1 cap, Route: PO , Drug form: CAP, QID, Dosing Weight 66.364, kg, Start date: 06/09/13 21:00:00, Duration: 30 day, Stop date: 07/09/13 17:00:00(Same as: Bentyl) No Longer Active Jim 06/10/2013 [facility] Levaquin 500 mg, 2 tab, Route: PO, Drug form: TAB, Daily, Dosing Weight 66.364, kg, Start date: 06/09/13 21:00:00, Duration: 30 day, Stop date: 07/08/13 21:00:00Do not give w/antacids, dairy pdt & minerals Take 1 hr before or 2 hr after dairy pdt (Same as:Levaquin) No Longer Active [facility] 06/10/2013 [facility] MiraLax 17 gm, 1 pkt, Route: P O, Drug form: PWDR, BID, Dosing Weight 66.364, kg, Start date: 06/09/13 9:00:00, Duration: 30 day, Stop date: 07/08/13 17:00:00Dissolve in 8 oz of water or juice. (Same as: Miralax) No Longer Active Jim 06/09/2013 [facility] Colace 100 mg oral capsule 100 mg, 1 cap, Route: PO, Drug form: CAP, Bedtime, Dosing Weight 66.364, kg, Start date: 06/08/13 21:00:00, Duration: 30 day, Stop date: 07/07/13 21:00:00(Same as: Colace) (Do Not Crush) No Longer Active Jim 06/09/2013 [facility] Dilaudid 1 mg, 1 mL, Route: IV , Drug form: INJ, Q6H, Dosing Weight 66.364, kg, PRN Pain Score 6-10, Start date: 06/08/13 10:35:00, Duration: 30 day, Stop date: 07/08/13 10:34:00 No Longer Active Rainm 06/08/2013 [facility] hydromorphone 2 mg, 2 mL, Rout e: IVP, Drug form: INJ, ONCE, Dosing Weight 66.364, kg, Priority: STAT, Start date: 06/08/13 0:54:00, Stop date: 06/08/13 0:54:00 Inactive [facility] 06/08/2013 [facility] Flonase 0.05 mg/inh nasal spray 2 inhalation, Route: Each Affected Nostril, Drug Form: SPRY, Dosing Weight 66.364, kg, Daily, Start date: 06/07/13 9:00:00, Duration: 30 day, Stop date: 07/06/13 9:00:00(Same as: Flonase) No Longer Active Romo 06/07/2013 [facility] CeleXA 40 mg, 2 tab, Route: PO , Drug form: TAB, QAM, Dosing Weight 66.364, kg, Start date: 06/06/13 9:00:00, Duration: 30 day, Stop date: 07/05/13 9:00:00(Same As: CeleXA) No Longer Active [facility] 06/06/2013 [facility] Ambien 10 mg, 1 tab, Route: PO , Drug form: TAB, ONCE, Start date: 06/06/13 0:35:00, Stop date: 06/06/13 0:35:00(Same As: Ambien) Inactive [facility] 06/06/2013 [facility] Fioricet oral tablet 1 tab, Ro marita: PO, Drug Form: TAB, Dosing Weight 66.364, kg, Q4H, PRN Headache, Start date: 06/05/13 21:06:00, Duration: 30 day, Stop date: 07/05/13 21:05:00(yprrqolwtmjyn-pbixlpsjci-ybugoeml 325-50-40mg) Do not exceed 4 gm/day of acetaminophen. (Same as: Esgic, Fioricet) No Longer Active Rahim 06/06/2013 [facility] zolpidem 10 mg, 1 tab, Route: PO, Drug form: TAB, Bedtime, Dosing Weight 66.364, kg, Start date: 06/05/13 21:00:00, Duration: 30 day, Stop date: 07/04/13 21:00:00(Same As: Ambien) No Longer Active [facility] 06/06/2013 [facility] hydrOXYzine 25 mg, 1 tab, Rout e: PO, Drug form: TAB, Bedtime, Dosing Weight 66.364, kg, Start date: 06/05/13 21:00:00, Duration: 30 day, Stop date: 07/04/13 21:00:00(Same as: Atarax) Avoid alcohol. No Longer Active [facility] 06/06/2013 [facility] Tamiflu 75 mg, 1 cap, Route: P O, Drug form: CAP, [id number], Dosing Weight 66.364, kg, Start date: 06/05/13 21:00:00, Duration: 10 doses or times, Stop date: 06/10/13 9:00:00Take with food. Same as: Tamiflu) No Longer Active [facility] 06/06/2013 [facility] chlordiazePOXIDE 25 mg oral capsule 25 mg, 1 cap, Route: PO, Drug form: CAP, QID, Dosing Weight 66.364, kg, PRN Anxiety, Start date: 06/05/13 19:45:00, Duration: 30 day, Stop date: 07/05/13 19:44:00 No Longer Active [facility] 06/06/2013 [facility] Solu-MEDROL 20 mg, 0.5 mL, Rou te: IVP, Drug form: INJ, Q22N-56, Dosing Weight 67.727, kg, Start date: 06/05/13 18:00:00, Stop date: 07/05/13 6:00:00(Same as:Solu-MEDROL, A-Methapred) No Longer Active [facility] 06/06/2013 [facility] albuterol 1.25 mg, 3 mL, Route : NEB, Drug form: SOLN, PRN, PRN Respiratory Protocol, Start date: 06/05/13 16:04:00, Duration: 30 day, Stop date: 07/05/13 16:03:00SEE RT DOCUMENTATION (Same as: Proventil) No Longer Active [facility] 06/05 [facility] levofloxacin 750 mg oral tablet 750 mg = 1 tab, PO, Daily, # 10 tab, 0 Refill(s) N o Longer Active [facility] 06/05/2013 [facility] predniSONE 5 mg oral tablet 5 mg = 1 tab, PO, TID, # 21 tab, 0 Refill(s) No Longer Active 06/05/2013 [facility] chlordiazePOXIDE 25 mg oral capsule 25 mg = 1 cap, PO, QID, Anxiety, # 60 cap, 0 Refill(s) Active [facility] 06/05/2013 [facility] Promethazine DM oral syrup 5 m l, PO, Q6H, for cough, # 120 ml, 0 Refill(s) No Longer Active [facility] 06/05/2013 [facility] acetaminophen 650 mg, 2 tab, R oute: PO, Drug form: TAB, Q4H, Dosing Weight 67.727, kg, PRN Pain 1-3/Temp > 100.4 F, Start date: 06/05/13 14:49:00, Duration: 30 day, Stop date: 07/05/13 14:48:00Do not exceed 4 gm/day. (Same as: Tylenol) No Longer Active [facility] 06/05/2013 [facility] D5W 1/2NS + KCL 20mEq/L 1000ml (Premix) 1000 mL 1,000 mL, Rate: 100 ml/hr, Infuse over: 10 hr, Route: IV, Dosing Weight 67.727 kg, Total Volume: 1,000, Start date: 06/05/13 14:49:00, Duration: 30 day, Stop date: 07/05/13 14:48:00 Inactive [facility] 06/05/2013 [facility] docusate 100 mg, 1 cap, Route: PO, Drug form: CAP, BID, Dosing Weight 67.727, kg, PRN as needed for constipation, Start date: 06/05/13 14:49:00, Duration: 30 day, Stop date: 07/05/13 14:48:00(Same as: Colace) (Do Not Crush) No Longer Active [facility] 06/05/2013 [facility] Saline Flush 0.9% 5 ml, Route: IVP, Drug Form: INJ, Dosing Weight 67.727, kg, PRN, PRN Line Flush, Start date: 06/05/13 14:49:00, Duration: 30 day, Stop date: 07/05/13 14:48:00Same as: BD Posiflush Sterile No Longer Active [facility] 06/05 [facility] Restoril 30 mg, 2 cap, Route: PO, Drug form: CAP, Bedtime, Dosing Weight 67.727, kg, PRN Sleep, Start date: 06/05/13 12:03:00, Duration: 30 day, Stop date: 07/05/13 12:02:00(Same As: Restoril) No Longer Active [facility] 06/05/2013 [facility] normal saline 0.9% IV 1,000 mL 1,000 mL, Rate: 125 ml/hr, Infuse over: 8 hr, Route: IV, Dosing Weight 67.727 kg, Total Volume: 1,000, Start date: 06/05/13 12:02:00, Duration: 30 day, Stop date: 07/05/13 12:01:00 No Longer Active [facility] 06/05/2013 [facility] Robitussin-AC oral syrup 5 ml, Route: PO, Drug Form: LIQ, Dosing Weight 67.727, kg, Q4H, PRN Cough/Congestion, Start date: 06/05/13 12:02:00, Duration: 30 day, Stop date: 07/05/13 12:01:00(Same As: Robitussin AC) No Longer Active [facility] 06/05 [facility] Levaquin 500 mg, 100 mL, Route : IVPB, Drug form: INJ, [id number], Dosing Weight 67.727, kg, Start date: 06/05/13 12:00:00, Duration: 30 day, Stop date: 07/04/13 20:00:00(Same as:Levaquin) No Longer Active [facility] 06/05/2013 [facility] Xopenex 0.63 mg, Route: NEB, P RN, Dosing Weight 67.727, kg, PRN Respiratory Protocol, Start date: 06/05/13 11:57:00, Duration: 30 day, Stop date: 07/05/13 11:56:00 Inactive [facility] 06/05/2013 [facility] prochlorperazine 10 mg oral tablet 10 mg, 1 tab, PO, BID, PRN, 10 tab, Headache, Substitution Allowed, TAB PO Active Rice 02/12/2013 [facility] NS (Bolus) IV 500 mL 500 mL, R ate: 500 ml/hr, Infuse over: 1 hr, Route: IV, Dosing Weight 67.727 kg, Total Volume: 500, Priority: STAT, Start date: 02/12/13 3:55:00, Duration: 1 doses or times, Stop date: 02/12/13 4:54:00, Bolus DoseBolus Dose IV No Longer Active [facility] 02/12/2013 [facility] Benadryl 25 mg, Route: IVP, ON CE, Dosing Weight 67.727, kg, Priority: STAT, Start date: 02/12/13 3:43:00, Stop date: 02/12/13 3:43:00 IVP No Longer Active [facility] 2012 [facility] Reglan 10 mg, Route: IVP, Drug form: INJ, ONCE, Dosing Weight 67.727, kg, Priority: STAT, Start date: 02/12/13 3:43:00, Stop date: 02/12/13 3:43:00 IVP No Longer Active [facility] 02/12/2013 [facility] Dilaudid 1 mg, Route: IV, ONCE , Dosing Weight 67.727, kg, Start date: 02/12/13 0:43:00, Stop date: 02/12/13 0:43:00 IV No Longer Active [facility] 02/12/2013 [facility] GI cocktail 30 mL, Route: PO, Dosing Weight 67.727, kg, ONCE, STAT, Start date: 02/12/13 0:40:00, Stop date: 02/12/13 0:40:00 PO No Longer Active [facility] 2012 [facility] Dilaudid 1 mg, Route: IV, ONCE , Dosing Weight 67.727, kg, Start date: 02/11/13 23:52:00, Stop date: 02/11/13 23:52:00 IV No Longer Active [facility] 02/12/2013 [facility] morphine Sulfate 4 mg, Route: IVP, Drug form: INJ, ONCE, Dosing Weight 67.727, kg, Priority: STAT, Start date: 02/11/13 22:12:00, Stop date: 02/11/13 22:12:00 IVP No Longer Active [facility] 02/12/2013 [facility] ondansetron 4 mg, Route: IVP, Drug form: INJ, ONCE, Dosing Weight 67.727, kg, Priority: STAT, Start date: 02/11/13 22:12:00, Stop date: 02/11/13 22:12:00 IVP No Longer Active [facility] 02/12/2013 [facility] Lactated Ringers Injection IV 1,000 mL 1,000 mL, Rate: 1,000 ml/hr, Infuse over: 1 hr, Route: IV, Dosing Weight 67.727 kg, Total Volume: 1,000, Bolus infusion, Priority: STAT, Start date: 02/11/13 22:12:00, Duration: 1 doses or times, Stop date: 02/11/13 23:11:00 IV No Longer Active [facility] 02/12/2013 [facility] Cipro 750 mg oral tablet 750 m g, 1 tab, PO, Q12H, 6 tab, Substitution Allowed PO Active [facility] 09/28/2012 [facility] Dilaudid 1 mg, 0.5 mL, Route: IV, Drug form: INJ, ONCE, Dosing Weight 64.545, kg, Start date: 09/28/12 1:27:00, Stop date: 09/28/12 1:27:00 IV No Longer Active [facility] 09/28/2012 [facility] Dilaudid 1 mg, 0.5 mL, Route: IV, Drug form: INJ, ONCE, Dosing Weight 64.545, kg, Start date: 09/28/12 0:16:00, Stop date: 09/28/12 0:16:00 IV No Longer Active [facility] 09/28/2012 [facility] NS (Bolus) IV 1,000 mL 1,000 m L, Rate: 1,000 ml/hr, Infuse over: 1 hr, Route: IV, Dosing Weight 64.545 kg, Total Volume: 1,000, Priority: STAT, Start date: 09/28/12 0:15:00, Duration: 1 doses or times, Stop date: 09/28/12 1:14:00, Bolus DoseBolus Dose IV No Longer Active [facility] 09/28/2012 [facility] morphine Sulfate 4 mg, Route: IVP, ONCE, Dosing Weight 64.545, kg, Start date: 09/28/12 0:15:00, Stop date: 09/28/12 0:15:00 IVP No Longer Active [facility] 09/28 [facility] Tylenol 975 mg, 3 tab, Route: PO, Drug form: TAB, ONCE, Dosing Weight 64.545, kg, Priority: STAT, Start date: 09/27/12 22:12:00, Stop date: 09/27/12 22:12:00 PO No Longer Active [facility] 09/28/2012 [facility] oral tablet 1 tab, PO, Daily, Substitution Allowed, Maintenance PO Active 09/28/2012 [facility] nt magnesium sulfate 2 gm, 50 mL, Route: IVPB, Drug form: INJ, ONCE, Dosing Weight 64.545, kg, Total dose = 2 gm, Start date: 09/27/12 21:35:00, Duration: 1 doses or times, Stop date: 09/27/12 21:35:00 IVPB No Longer Active [facility] 09/28 [facility] diazepam 10 mg, 1 tab, Route: PO, Drug form: TAB, ONCE, Dosing Weight 64.545, kg, Priority: STAT, Start date: 09/27/12 21:17:00, Stop date: 09/27/12 21:17:00 PO No Longer Active [facility] 09/28/2012 [facility] nt Celexa 20 mg, PO, QAM, Substit ution Allowed PO Active 09/28/2012 [facility] Atarax 25 mg oral tab 25 mg, 1 tab, PO, Bedtime, Substitution Allowed PO Active 09/28/2012 [facility] Ambien Substitution Allowed No Longer Active 09/28/2012 [facility] ondansetron 2 mg/mL injectable solution 4 mg, 2 mL, IVP, Q6H, PRN, 10 mL, Nausea & Vomiting, Substitution Allowed, INJ IVP Active [facility] 08/11/2012 [facility] acetaminophen-hydrocodone 325 mg-5 mg oral tablet 2 tab, PO, Q4H, PRN, 15 tab, Pain Score 4-6, Substitution Allowed, Maintenance, TAB PO Active [facility] 08/11/2012 [facility] docusate sodium 100 mg oral capsule 100 mg, 1 cap, Route: PO, Drug form: CAP, BID, Dosing Weight 66.818, kg, Start date: 08/10/12 9:00:00, Duration: 30 day, Stop date: 09/08/12 17:00:00 PO No Longer Active Wendy 08/10/2012 [facility] Flomax 0.4 mg, 1 cap, Route: P O, Drug form: CAP, After Breakfast, Dosing Weight 66.818, kg, Start date: 08/10/12 8:30:00, Duration: 30 day, Stop date: 09/08/12 8:30:00 PO No Longer Active Hinh 08/10/2012 [facility] Lovenox 40 mg, 0.4 mL, Route: SUB-Q, Drug form: INJ, [id number], Dosing Weight 66.818, kg, Start date: 08/10/12 6:00:00, Duration: 30 day, Stop date: 09/08/12 6:00:00 SUB-Q No Longer Active Wendy 08/10/2012 [facility] METRONIDazole (SCIP) 500 mg, 1 00 mL, Route: IVPB, Drug form: INJ, [id number], Dosing Weight 66.818, kg, Start date: 08/09/12 19:00:00, Duration: 3 doses or times, Stop date: 08/10/12 11:00:00 IVPB No Longer Active Wendy 08/10/2012 [facility] Ofirmev 1,000 mg, Route: IV, D rug form: INJ, ONCE, Dosing Weight 66.818, kg, PRN Pain, for > or = 50 kg, Start date: 08/09/12 18:15:00 IV No Longer Active Chandler 08/09/2012 [facility] Wilber 10/325 oral tablet 1 tab , Route: PO, Drug Form: TAB, Dosing Weight 66.818, kg, Q6H, PRN Pain, Start date: 08/09/12 18:15:00, Duration: 30 day, Stop date: 09/08/12 18:14:00 PO No Longer Active Chandler 08/09/2012 [facility] hydromorphone 0.5 mg, Route: 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, 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, Dosing Weight 66.818, kg, PRN Pain Score 4-6, Start date: 08/09/12 18:15:00, Duration: 5 doses or times, Stop date: Limited # of times IVP No Longer Active Chandler 08/09/2012 [facility] fentanyl 25 microgram, Route: IVP, Q5Min, Dosing Weight 66.818, kg, PRN Pain Score 4-6, Start date: 08/09/12 18:15:00, Duration: 4 doses or times, Stop date: Limited # of times IVP No Longer Active Chandler 08/09/2012 [facility] flumazenil 0.2 mg, Route: IVP, PRN, Dosing Weight 66.818, kg, PRN Benzodiazepine Reversal, Initial dose, Start date: 08/09/12 18:15:00, Duration: 30 day, Stop date: 09/08/12 18:14:00 IVP No Longer Active Chandler 08/09/2012 [facility] naloxone 0.04 mg, Route: IVP, Q2MIN, Dosing Weight 66.818, kg, PRN Narcotic Reversal, Start date: 08/09/12 18:15:00, Duration: 8 doses or times, Stop date: Limited # of times IVP No Longer Active Chandler 08/09/2012 [facility] ondansetron 4 mg, Route: IVP, ONCE, Dosing Weight 66.818, kg, PRN Nausea & Vomiting, Start date: 08/09/12 18:15:00 IVP No Longer Active Chandler 08/09/2012 [facility] ciprofloxacin (SCIP) 400 mg, 2 00 mL, Route: IVPB, Drug form: INJ, [id number], Dosing Weight 66.818, kg, Start date: 08/09/12 18:00:00, Duration: 2 doses or times, Stop date: 08/10/12 6:00:00 IVPB No Longer Active Wendy 08/09/2012 [facility] Lactated Ringers Injection IV 1,000 mL 1,000 mL, Rate: 125 ml/hr, Infuse over: 8 hr, Route: IV, kg, Total Volume: 1,000, Start date: 08/09/12 17:24:00, Duration: 30 day, Stop date: 09/08/12 17:23:00 IV No Longer Active Wendy 08/09/2012 [facility] acetaminophen-hydrocodone 325 mg-5 mg oral tablet 2 tab, Route: PO, Drug Form: TAB, Dosing Weight 66.818, kg, Q4H, PRN Pain Score 4-6, Start date: 08/09/12 17:24:00, Duration: 30 day, Stop date: 09/08/12 17:23:00 PO No Longer Active Wendy [facility] ondansetron 4 mg, 2 mL, Route: IVP, Drug form: INJ, Q6H, Dosing Weight 66.818, kg, PRN Nausea & Vomiting, Start date: 08/09/12 17:24:00, Duration: 30 day, Stop date: 09/08/12 17:23:00 IVP No Longer Active Wendy 08/09/2012 [facility] diphenhydrAMINE 25 mg, 1 tab, Route: PO, Drug form: TAB, Bedtime, Dosing Weight 66.818, kg, PRN Insomnia, Start date: 08/09/12 17:24:00, Duration: 30 day, Stop date: 09/08/12 17:23:00 PO No Longer Active Wendy 08/09/2012 [facility] Lactated Ringers IV 1,000 mL 1 ,000 mL, Rate: 25 ml/hr, Infuse over: 40 hr, Route: IV, kg, Total Volume: 1,000, Start date: 08/09/12 15:19:00, Duration: 30 day, Stop date: 09/08/12 15:18:00 IV No Longer Active Frias 08/09/2012 [facility] Rocephin + Sodium Chloride 0.9% IV 100 mL 2 gm, Route: IVPB, ONCALL, Start date: 08/09/12 12:00:00, Duration: 2 day, Stop date: 08/11/12 11:59:00 IVPB No Longer Active Wendy 08/09/2012 [facility] Paige Enema 133 ml, Route: TX, Drug Form: SUMAN, Dosing Weight 66.818, kg, ONCE, Start date: 08/08/12 15:57:00, Stop date: 08/08/12 15:57:00 TX No Longer Active Wendy 08/08/2012 [facility] Paige Enema 133 ml, Route: TX, Drug Form: SUMAN, Dosing Weight 66.818, kg, ONCE, Start date: 08/08/12 7:05:00, Stop date: 08/08/12 7:05:00 TX No Longer Active Rahim 08/08/2012 [facility] Ambien 10 mg, 1 tab, Route: PO , Drug form: TAB, Bedtime, Dosing Weight 66.818, kg, PRN as needed for sleep, Start date: 08/08/12 7:04:00, Duration: 30 day, Stop date: 09/07/12 7:03:00 PO No Longer Active Rahim 08/08/2012 [facility] temazepam 15 mg, 1 cap, Route: PO, Drug form: CAP, Bedtime, Dosing Weight 66.818, kg, Start date: 08/07/12 21:00:00, Duration: 30 day, Stop date: 09/05/12 21:00:00 PO No Longer Active Rahim 08/08/2012 [facility] Protonix 40 mg, 1 tab, Route: PO, Drug form: ECTAB, Before Dinner, Dosing Weight 66.364, kg, Start date: 08/07/12 16:30:00, Duration: 30 day, Stop date: 09/05/12 16:30:00 PO No Longer Active Rahim 08/07/2012 [facility] Pristiq 50mg po daily*Pts own med* Pristiq 50mg po daily*Pts own med*, Pristiq 50mg po daily*Pts own med*, Drug form: MISC, Route: PO, Daily, 08/07/12 9:00:00, Duration: 30 day, Stop date: 09/05/12 9:00:00 PO No Longer Active Rahim 08/07 [facility] Pristiq 50 mg oral tablet, extended release 1 tab, Route: PO, Drug form: ERTAB, Daily, Dosing Weight 66.364, kg, Start date: 08/07/12 9:00:00, Duration: 30 day, Stop date: 09/05/12 9:00:00 PO No Longer Active Rahim 08/07/2012 [facility] diazepam 10 mg, 1 tab, Route: PO, Drug form: TAB, QID, Dosing Weight 66.818, kg, Start date: 08/07/12 9:00:00, Duration: 30 day, Stop date: 09/05/12 21:00:00 PO No Longer Active Rahim 08/07/2012 [facility] Milk of Magnesia 60 ml, Route: PO, Drug Form: SUSP, Dosing Weight 66.818, kg, ONCE, PRN as needed for constipation, Start date: 08/07/12 7:13:00 PO No Longer Active Rahim 08/07/2012 [facility] Fleet Enema 133 ml, Route: TX, Drug Form: SUMAN, Dosing Weight 66.818, kg, ONCE, Start date: 08/07/12 7:12:00, Stop date: 08/07/12 7:12:00 TX No Longer Active Rahim 08/07/2012 [facility] Benadryl 25 mg, 0.5 mL, Route: IV, Drug form: INJ, Q4H, Dosing Weight 66.818, kg, PRN as needed for itching, Start date: 08/07/12 0:19:00, Duration: 30 day, Stop date: 09/06/12 0:18:00 IV No Longer Active Rahim 08/07/2012 [facility] hydromorphone 1.5 mg, 1.5 mL, Route: IV, Drug form: SOLN, Q3H, Dosing Weight 66.818, kg, PRN Pain Score 6-10, Start date: 08/06/12 17:42:00, Duration: 30 day, Stop date: 09/05/12 17:41:00 IV No Longer Active Rahim 08/06/2012 [facility] Protonix 40 mg, Route: IVP, Dr ug form: INJ, Before Dinner, Dosing Weight 66.364, kg, Start date: 08/06/12 16:30:00, Duration: 30 day, Stop date: 09/04/12 16:30:00 IVP No Longer Active [facility] 08/06/2012 [facility] Pristiq 50 mg oral tablet, extended release 50 mg, 1 tab, PO, Daily, 30 tab, Substitution Allowed, ERTAB PO Active Rainm 08/06/2012 [facility] Levaquin 500 mg, 100 mL, Route : IVPB, Drug form: INJ, [id number], Dosing Weight 66.364, kg, Start date: 08/06/12 15:00:00, Duration: 30 day, Stop date: 09/04/12 15:00:00 IVPB [facility] 08[facility]2012 [facility] enoxaparin 40 mg, 0.4 mL, Rout e: SUB-Q, Drug form: INJ, [id number], Dosing Weight 66.364, kg, Start date: 08/06/12 15:00:00, Duration: 30 day, Stop date: 09/04/12 15:00:00 SUB-Q No Longer Active [facility] 08/06/2012 [facility] Restoril 30 mg, 2 cap, Route: PO, Drug form: CAP, Bedtime, Dosing Weight 66.364, kg, PRN Sleep, Start date: 08/06/12 14:15:00, Duration: 30 day, Stop date: 09/05/12 14:14:00 PO No Longer Active Rainm 08/06/2012 [facility] Phenergan + Sodium Chloride 0.9% IV 50 mL 12.5 mg, 0.5 mL, Route: IVPB, Q4H, Dosing Weight 66.364, kg, PRN Nausea & Vomiting, Start date: 08/06/12 14:14:00, Duration: 30 day, Stop date: 09/05/12 14:13:00 IVPB No Longer Active [facility] 08/06 [facility] Dilaudid 1 mg, 1 mL, Route: IV , Drug form: SOLN, Q3H, Dosing Weight 66.364, kg, PRN Pain, Start date: 08/06/12 14:13:00, Duration: 30 day, Stop date: 09/05/12 14:12:00 IV No Longer Active Rainm 08/06/2012 [facility] D5LR 1,000 mL 1,000 mL, Rate: 100 ml/hr, Infuse over: 10 hr, Route: IV, kg, Total Volume: 1,000, Start date: 08/06/12 14:08:00, Duration: 30 day, Stop date: 09/05/12 14:07:00 IV No Longer Active [facility] 08/06/2012 [facility] Bentyl 10 mg, 1 cap, Route: PO , Drug form: CAP, Q6H, Dosing Weight 66.364, kg, PRN For Pain, Start date: 07/19/12 14:23:00, Duration: 30 day, Stop date: 08/18/12 14:22:00 PO No Longer Active Rainm 07/19/2012 [facility] Fioricet 1 tab, Route: PO, David g Form: TAB, Dosing Weight 66.364, kg, Q4H, PRN Headache, Start date: 07/19/12 7:23:00, Duration: 30 day, Stop date: 08/18/12 7:22:00 [facility] 07[facility]2012 [facility] zolpidem 20 mg, 2 tab, Route: PO, Drug form: TAB, Bedtime, Dosing Weight 66.364, kg, Start date: 07/18/12 21:00:00, Duration: 30 day, Stop date: 08/16/12 21:00:00 PO No Longer Active Rainm 07/19/2012 [facility] citalopram 10 mg, 1 tab, Route : PO, Drug form: TAB, Bedtime, Dosing Weight 66.364, kg, Start date: 07/18/12 21:00:00, Duration: 30 day, Stop date: 08/16/12 21:00:00 PO No Longer Active [facility] 07/19/2012 [facility] influenza virus vaccine, inactivated 0.5 ml, Route: IM, Drug Form: INJ, Start date: 07/18/12 13:30:00, Stop date: 07/18/12 13:30:00 Inactive SYSTEM 07/18/2012 [facility] Phenergan + Sodium Chloride 0.9% IV 50 mL 12.5 mg, 0.5 mL, Route: IVPB, ONCE, Dosing Weight 66.364, kg, Start date: 07/18/12 9:49:00, Stop date: 07/18/12 9:49:00 IVPB No Longer Active Rainm 07/18/2012 [facility] Valium 10 mg, 2 tab, Route: PO , Drug form: TAB, QID, Start date: 07/18/12 9:00:00, Duration: 30 day, Stop date: 08/16/12 21:00:00 PO No Longer Active Rainm 07/18 [facility] diazepam 10 mg, Route: PO, David g form: TAB, QID, Dosing Weight 66.364, kg, Start date: 07/18/12 9:00:00, Duration: 30 day, Stop date: 08/16/12 21:00:00 PO No Longer Active Rainm 07/18/2012 [facility] influenza virus vaccine, inactivated 0.5 ml, Route: IM, Drug Form: INJ, Daily, Start date: 07/18/12 9:00:00, Duration: 1 doses or times, Stop date: 07/18/12 9:00:00 IM No Longer Active SYSTEM 07/18/2012 [facility] Flomax 0.4 mg, 1 cap, Route: P O, Drug form: CAP, After Breakfast, Dosing Weight 66.364, kg, Start date: 07/18/12 8:30:00, Duration: 30 day, Stop date: 08/16/12 8:30:00 PO No Longer Active [facility] 07/18/2012 [facility] D5W 1/2NS + KCL 20mEq/L 1000ml (Premix) 1,000 mL 1,000 mL, Rate: 150 ml/hr, Infuse over: 6.7 hr, Route: IV, kg, Total Volume: 1,000, Start date: 07/18/12 6:37:00, Duration: 30 day, Stop date: 08/17/12 6:36:00 IV No Longer Active [facility] 07/18 [facility] diazepam 10 mg, 2 tab, Route: PO, Drug form: TAB, ONCE, Dosing Weight 66.364, kg, PRN Seizure, Start date: 07/18/12 6:10:00 PO No Longer Active Rahim 07/18/2012 [facility] diazepam 10 mg, 2 tab, Route: PO, Drug form: TAB, QID, Dosing Weight 66.364, kg, PRN, Start date: 07/18/12 5:26:00, Duration: 30 day, Stop date: 08/17/12 5:25:00, QID PO No Longer Active [facility] 07/18/2012 [facility] Dilaudid 1.5 mg, 1.5 mL, Route : IV, Drug form: SOLN, Q4H, Dosing Weight 66.364, kg, PRN Pain, Start date: 07/18/12 0:29:00, Stop date: 08/17/12 0:28:00 IV No Longer Active [facility] 07/18/2012 [facility] morphine Sulfate 2 mg, 1 mL, R oute: IVP, Drug form: INJ, Q4H, Dosing Weight 66.364, kg, PRN Pain Score 4-6, Start date: 07/17/12 20:23:00, Duration: 30 day, Stop date: 08/16/12 20:22:00 IVP No Longer Active [facility] 07/18/2012 [facility] Saline Flush 0.9% 5 ml, Route: IVP, Drug Form: INJ, Dosing Weight 66.364, kg, PRN, PRN Line Flush, Start date: 07/17/12 20:23:00, Duration: 30 day, Stop date: 08/16/12 21:22:00 IVP No Longer Active [facility] 07/18/2012 [facility] citalopram 10 mg oral tablet 1 0 mg, 1 tab, PO, Bedtime, 30 tab, Substitution Allowed, TAB PO Active [facility] 07/18/2012 [facility] Flomax 0.4 mg oral capsule 0.4 mg, 1 cap, PO, After Breakfast, 30 cap, Substitution Allowed, CAP PO Active [facility] 07/18/2012 [facility] Bactrim DS oral tablet 1 tab, PO, BID, 6 tab, Substitution Allowed, Maintenance PO Active 07/18/2012 [facility] Benadryl 12.5 mg, Route: IVP, ONCE, Dosing Weight 66.364, kg, Priority: STAT, Start date: 07/17/12 18:05:00, Stop date: 07/17/12 18:05:00 IVP No Longer Active [facility] 07/18/2012 [facility] Zofran 4 mg, Route: IVP, Drug form: INJ, ONCE, Dosing Weight 66.364, kg, PRN Nausea, Priority: STAT, Start date: 07/17/12 17:47:00 IVP No Longer Active [facility] 09/2012 [facility] morphine Sulfate 4 mg, Route: IVP, ONCE, Dosing Weight 66.364, kg, Start date: 07/17/12 17:47:00, Stop date: 07/17/12 17:47:00 IVP No Longer Active [facility] 09/2012 [facility] Saline Flush 0.9% 5 ml, Route: IVP, Drug Form: INJ, Dosing Weight 66.364, kg, PRN, PRN Line Flush, Start date: 07/17/12 15:00:00, Duration: 30 day, Stop date: 08/16/12 15:59:00 IVP No Longer Active [facility] 07/17/2012 [facility] LORAzepam 1 mg, 0.5 mL, Route: IVP, Drug form: INJ, ONCE, Dosing Weight 66.364, kg, Priority: STAT, Start date: 07/17/12 15:00:00, Stop date: 07/17/12 15:00:00 IVP No Longer Active [facility] 07/17/2012 [facility] Ativan 1 mg, Route: IVP, ONCE, Dosing Weight 66.364, kg, Priority: STAT, Start date: 07/16/12 2:47:00, Stop date: 07/16/12 2:47:00 IVP No Longer Active [facility] 08/2012 [facility] pantoprazole 40 mg, Route: IVP , ONCE, Dosing Weight 66.364, kg, For IV push reconstitute with 10 ml 0.9% sodium chloride and push over at least 3 minutes, Priority: STAT, Start date: 07/15/12 23:31:00, Stop date: 07/15/12 23:31:00 IVP No Longer Active [facility] 07/16/2012 [facility] Sodium Chloride 0.9% (Bolus) IV 500 mL 500 mL, Rate: 1,000 ml/hr, Infuse over: 30 minutes, Route: IV, kg, Total Volume: 500, Priority: STAT, Start date: 07/15/12 23:31:00, Duration: 1 doses or times, Stop date: 07/16/12 0:00:00 IV No Longer Active [facility] 07/16/2012 [facility] Saline Flush 0.9% 5 mL, Route: IVP, Drug Form: INJ, Dosing Weight 66.364, kg, PRN, PRN Line Flush, Start date: 07/15/12 23:31:00, Duration: 24 hr, Stop date: 07/16/12 23:30:00 IVP No Longer Active [facility] 07/16/2012 [facility] ondansetron 4 mg, Route: IVP, ONCE, Dosing Weight 66.364, kg, Priority: STAT, Start date: 07/15/12 23:31:00, Stop date: 07/15/12 23:31:00 [facility] hydromorphone 1 mg, Route: IVP , ONCE, Dosing Weight 66.364, kg, Priority: STAT, Start date: 07/15/12 23:31:00, Stop date: 07/15/12 23:31:00 [facility] 07[facility]16[facility]2012 [facility] levofloxacin 500 mg/100 mL intravenous solution 500 mg, 100 mL, IVPB, [id number], 7 mL, Substitution Allowed, INJ IVPB Active [facility] 07/11/2012 [facility] Wilber 5/325 oral tablet 1 tab, PO, Q4H, PRN, 12 tab, for pain, Substitution Allowed, Maintenance, TAB PO Active [facility] 07/11/2012 [facility] Wilber 10/325 oral tablet 1 tab , Route: PO, Drug Form: TAB, Dosing Weight 66.818, kg, Q6H, PRN Pain, Start date: 07/11/12 7:18:00, Duration: 30 day, Stop date: 08/10/12 7:17:00 PO No Longer Active [facility] 07/11/2012 [facility] Protonix 40 mg, 1 tab, Route: PO, Drug form: ECTAB, Before Dinner, Dosing Weight 59.091, kg, Start date: 07/10/12 16:30:00, Duration: 30 day, Stop date: 08/08/12 16:30:00 PO No Longer Active Rainm 07/10/2012 [facility] amitriptyline 50 mg, 1 tab, Ro marita: PO, Drug form: TAB, Bedtime, Dosing Weight 66.818, kg, Start date: 07/09/12 21:00:00, Duration: 30 day, Stop date: 08/07/12 21:00:00 PO No Longer Active [facility] 07/10/2012 [facility] Ambien 10 mg, 1 tab, Route: PO , Drug form: TAB, Bedtime, Dosing Weight 66.818, kg, PRN Insomnia, Start date: 07/09/12 17:41:00, Duration: 30 day, Stop date: 08/08/12 17:40:00 PO No Longer Active Rainm 07/09/2012 [facility] Protonix 40 mg, Route: IVP, Dr ug form: INJ, Before Dinner, Dosing Weight 59.091, kg, Start date: 07/09/12 16:30:00, Duration: 30 day, Stop date: 08/07/12 16:30:00 IVP No Longer Active [facility] 07/09/2012 [facility] diazepam 10 mg, 2 tab, Route: PO, Drug form: TAB, Q6H, Dosing Weight 66.818, kg, Start date: 07/09/12 14:57:00, Stop date: 08/08/12 10:00:00 PO No Longer Active [facility] 07/09/2012 [facility] enoxaparin 40 mg, 0.4 mL, Rout e: SUB-Q, Drug form: INJ, [id number], Dosing Weight 59.091, kg, Start date: 07/09/12 12:00:00, Duration: 30 day, Stop date: 08/07/12 13:00:00 SUB-Q No Longer Active [facility] 07/09/2012 [facility] Levaquin 500 mg, 100 mL, Route : IVPB, Drug form: INJ, [id number], Dosing Weight 59.091, kg, Start date: 07/09/12 12:00:00, Duration: 30 day, Stop date: 08/07/12 13:00:00 IVPB No Longer Active [facility] 07/09/2012 [facility] Phenergan + Sodium Chloride 0.9% IV 50 mL 12.5 mg, 0.5 mL, Route: IVPB, Q4H, Dosing Weight 59.091, kg, PRN Nausea & Vomiting, Start date: 07/09/12 11:12:00, Stop date: 08/08/12 11:11:00 IVPB No Longer Active Rainm 07/09/2012 [facility] Dilaudid 1 mg, 1 mL, Route: IV , Drug form: SOLN, Q3H, Dosing Weight 59.091, kg, PRN Pain, Start date: 07/09/12 11:12:00, Duration: 30 day, Stop date: 08/08/12 11:11:00 IV No Longer Active Rahim 07/09/2012 [facility] acetaminophen 650 mg, 2 tab, R oute: PO, Drug form: TAB, Q4H, Dosing Weight 59.091, kg, PRN Pain/Fever, Start date: 07/09/12 11:08:00, Duration: 30 day, Stop date: 08/08/12 11:07:00 PO No Longer Active Rahim 07/09/2012 [facility] NS + KCL 20mEq/L 1000ml (Premix) 1,000 mL 1,000 mL, Rate: 100 ml/hr, Infuse over: 10 hr, Route: IV, kg, Total Volume: 1,000, Start date: 07/09/12 11:08:00, Duration: 30 day, Stop date: 08/08/12 11:07:00 IV No Longer Active Rainm 07/09 [facility] Saline Flush 0.9% 5 ml, Route: IVP, Drug Form: INJ, Dosing Weight 59.091, kg, PRN, PRN Line Flush, Start date: 07/09/12 11:08:00, Duration: 30 day, Stop date: 08/08/12 12:07:00 IVP No Longer Active Rainm 07/09/2012 [facility] temazepam 15 mg, 1 cap, Route: PO, Drug form: CAP, Bedtime, Dosing Weight 59.091, kg, PRN Insomnia, Start date: 07/09/12 11:08:00, Duration: 30 day, Stop date: 08/08/12 11:07:00 PO No Longer Active Rahim 07/09/2012 [facility] docusate 100 mg, 1 cap, Route: PO, Drug form: CAP, BID, Dosing Weight 59.091, kg, PRN Constipation, Start date: 07/09/12 11:08:00, Duration: 30 day, Stop date: 08/08/12 11:07:00 PO No Longer Active Rainm 07/09/2012 [facility] Wilber 5/325 oral tablet 1 tab, PO, Q4H, PRN, 12 tab, for pain, Substitution Allowed, Maintenance, TAB PO On Hold Rah im 07/08/2012 [facility] Sodium Chloride 0.9% (Bolus) IV 500 mL, Route: IV, Dosing Weight 59.091, kg, ONCE, Bolus Dose - infuse over 1 hr, STAT, Start date: 07/08/12 2:00:00, Stop date: 07/08/12 2:00:00 IV No Longer Active [facility] 07/08/2012 [facility] Zofran 4 mg, Route: IVP, Drug form: INJ, ONCE, Dosing Weight 59.091, kg, PRN Nausea, Priority: STAT, Start date: 07/08/12 2:00:00 IVP No Longer Active [facility] 06/16 [facility] morphine Sulfate 4 mg, Route: IV, ONCE, Dosing Weight 59.091, kg, Start date: 07/08/12 1:59:00, Stop date: 07/08/12 1:59:00 IV No Longer Active [facility] 06/16 [facility] Ultram 50 mg oral tablet 50 mg , 1 tab, PO, Q4H, PRN, 12 tab, pain, Substitution Allowed PO Active Magdi prad[facility] 07/07/2012 [facility] Benadryl 25 mg, Route: PO, David g form: CAP, ONCE, Dosing Weight 66.364, kg, Priority: STAT, Start date: 07/07/12 1:11:00, Stop date: 07/07/12 1:11:00 PO No Longer Active [facility] 07/07/2012 [facility] ondansetron 4 mg, 2 mL, Route: IVP, Drug form: INJ, ONCE, Dosing Weight 66.364, kg, Priority: STAT, Start date: 07/07/12 0:05:00, Stop date: 07/07/12 0:05:00 IVP No Longer Active [facility] 07/07/2012 [facility] Sodium Chloride 0.9% (Bolus) IV 500 mL, 1000 ml/hr, Route: IV, Drug Form: INJ, Dosing Weight 66.364, kg, ONCE, Bolus at 1,000 ml/hr, STAT, Start date: 07/07/12 0:05:00, Stop date: 07/07/12 0:05:00 IV No Longer Active [facility] 07/07/2012 [facility] Saline Flush 0.9% 5 mL, Route: IVP, Drug Form: INJ, Dosing Weight 66.364, kg, PRN, PRN Line Flush, Start date: 07/07/12 0:05:00, Duration: 24 hr, Stop date: 07/08/12 0:04:00 IVP No Longer Active [facility] 07/07/2012 [facility] morphine Sulfate 4 mg, 2 mL, R oute: IVP, Drug form: INJ, ONCE, Dosing Weight 66.364, kg, Priority: STAT, Start date: 07/07/12 0:05:00, Stop date: 07/07/12 0:05:00 IVP No Longer Active [facility] 07/07/2012 [facility] droperidol 1.25 mg, Route: IVP , ONCE, Dosing Weight 65, kg, PRN Nausea & Vomiting, Start date: 05/31/12 9:20:00 IVP No Longer Active [facility] 05[facility]31[facility]2012 [facility] [facility] Reglan 10 mg, Route: IVP, ONCE , Dosing Weight 65, kg, Priority: STAT, Start date: 05/31/12 8:31:00, Stop date: 05/31/12 8:31:00 IVP No Longer Active [facility] Zofran 4 mg, 2 mL, Route: IVP, Drug form: INJ, ONCE, Dosing Weight 65, kg, Priority: STAT, Start date: 05/31/12 7:57:00, Stop date: 05/31/12 7:57:00 IVP No Longer Active [facility] 05/31/2012 [facility] Sodium Chloride 0.9% (Bolus) IV 1,000 mL, 1000 ml/hr, Route: IV, Drug Form: INJ, Dosing Weight 65, kg, ONCE, Bolus Dose. Infuse over 1 hour., STAT, Start date: 05/31/12 7:57:00, Stop date: 05/31/12 7:57:00 IV No Longer Active [facility] Saline Flush 0.9% 5 ml, Route: IVP, Drug Form: INJ, Dosing Weight 65, kg, PRN, PRN Line Flush, Start date: 05/31/12 7:57:00, Duration: 30 day, Stop date: 06/30/12 7:56:00 IVP No Longer Active Herminia 05/31/2012 [facility] Esgic 1 tab, Route: PO, Drug F orm: TAB, ONCE, Start date: 04/08/12 17:54:00, Stop date: 04/08/12 17:54:00 PO No Longer Active BlairHaley 04/08/2012 [facility] Midrin 1 tab, Route: PO, Drug Form: CAP, Dosing Weight 61.818, kg, ONCE, Start date: 04/08/12 17:31:00, Stop date: 04/08/12 17:31:00 PO No Longer Active Lon 04/08/2012 [facility] Zofran ODT 4 mg oral tablet, disintegrating 4 mg, 1 tab, PO, BID, PRN, Dissolve tab under tongue, 10 tab, Nausea and Vomiting, Substitution AllowedDissolve tab under tongue PO Active Rodrick Haley 04/08/2012 [facility] Zofran 4 mg, Route: IVP, Drug form: INJ, ONCE, Dosing Weight 61.818, kg, Priority: STAT, Start date: 04/08/12 17:04:00, Stop date: 04/08/12 17:04:00 IVP No Longer Active Lon 04/08/2012 [facility] Motrin 800 mg, Route: PO, Drug form: TAB, ONCE, Dosing Weight 61.818, kg, Priority: STAT, Start date: 04/08/12 16:27:00, Stop date: 04/08/12 16:27:00 PO No Longer Active Lno 04/08/2012 [facility] EpiPen Auto-Injector 0.3 mg injectable kit 0.3 mg, IM, ONCE, 1 kit, Substitution Allowed, SOLN IM Active [facility] 02/17/2012 [facility] epinephrine 1 mg/mL injectable solution 0.3 mg, Route: IM, ONCE, Dosing Weight 61.818, kg, Priority: STAT, Start date: 02/16/12 16:21:00, Stop date: 02/16/12 16:21:00 IM No Longer Active [facility] 02/16/2012 [facility] diphenhydrAMINE 25 mg, Route: IVP, ONCE, Dosing Weight 61.818, kg, Priority: STAT, Start date: 02/16/12 16:13:00, Stop date: 02/16/12 16:13:00 IVP No Longer Active [facility] 02/16/2012 [facility] LORAzepam 1 mg, Route: PO, ONC E, Dosing Weight 61.818, kg, Priority: STAT, Start date: 02/16/12 16:13:00, Stop date: 02/16/12 16:13:00 PO No Longer Active [facility] 08/2011 [facility] epinephrine topical 1:1000 solution 0.3 mL, Route: IM, ONCE, Start date: 02/16/12 16:13:00, Stop date: 02/16/12 16:13:00 IM No Longer Active [facility] 02/16/2012 [facility] famotidine 20 mg, Route: IVP, ONCE, Dosing Weight 61.818, kg, Priority: STAT, Start date: 02/16/12 16:13:00, Stop date: 02/16/12 16:13:00 IVP No Longer Active [facility] 02/16/2012 [facility] NS 500 mL 500 mL, Rate: 1,000 ml/hr, Infuse over: 0.5 hr, Route: IV, Dosing Weight 61.818 kg, Total Volume: 500, Start date: 02/16/12 16:12:00, Duration: 1 doses or times, Stop date: 02/16/12 16:41:00, Bolus D oseBolus Dose IV No Longer Active [facility] 02/16/2012 [facility] Toradol 30 mg/mL injectable solution 30 mg, Route: IV, Drug form: INJ, ONCE, Dosing Weight 62.727, kg, Priority: STAT, Start date: 01/25/12 0:13:00, Stop date: 01/25/12 0:13:00 IV No Longer Active Souman 01/25/2012 [facility] Sodium Chloride 0.9% (Bolus) IV 1000 mL 1,000 mL, Rate: 1,000 ml/hr, Infuse over: 1 hr, Route: IV, kg, Total Volume: 1,000, Bolus Dose, Priority: STAT, Start date: 01/24/12 21:58:00, Duration: 1 doses or times, Stop date: 01/24/12 22:57:00 IV No Longer Active Souman 01/25/2012 [facility] MiraLax 17 gm, 1 pkt, Route: P O, Drug form: PWDR, BID, kg, Start date: 01/02/12 17:00:00, Duration: 30 day, Stop date: 02/01/12 9:00:00 PO No Longer Active Jim 01/02/2012 [facility] vitamin A & D topical 1 appl, Route: TOP, QID, Drug form: OINT, Start date: 01/01/12 21:00:00, Duration: 30 day, Stop date: 01/31/12 17:00:00 TOP No Longer Active Rahim 01/02/2012 [facility] GoLYTELY 4,000 ml, Route: PO, Drug Form: PDR/REC, kg, ONCE, Start date: 01/01/12 17:17:00, Duration: 1 doses or times, Stop date: 01/01/12 17:17:00 PO No Longer Active Jim 01/01/2012 [facility] Zofran 4 mg, 2 mL, Route: IVP, Drug form: INJ, Q6H, kg, PRN Nausea, Start date: 01/01/12 14:09:00, Duration: 30 day, Stop date: 01/31/12 14:08:00 IVP No Longer Active Jim 01/01/2012 [facility] Ativan 1 mg, 0.5 mL, Route: IV , Drug form: INJ, Q4H, kg, PRN Anxiety, Priority: NOW, Start date: 01/01/12 11:02:00, Duration: 30 day, Stop date: 01/31/12 11:01:00 IV No Longer Active Rahim 01/01/2012 [facility] Pristiq 50 mg oral tablet, extended release 50 mg, 1 tab, Route: PO, Drug form: ERTAB, Daily, Dosing Weight 66.818, kg, Start date: 01/01/12 9:00:00, Duration: 30 day, Stop date: 01/30/12 9:00:00 PO No Longer Active Rahim 01/01/2012 [facility] Protonix 40 mg, Route: IVP, Dr antonio form: INJ, Daily, kg, Patient is NPO, Start date: 01/01/12 9:00:00, Duration: 30 day, Stop date: 01/30/12 9:00:00 IVP No Longer Active [facility] 01/01/2012 [facility] Pt's own med DESVENLAFAXINE Pt's own med Pt's own med DESVENLAFAXINE Pt's own med, 50 mg, Drug form: MISC, Route: PO, Daily, 01/01/12 9:00:00, Duration: 30 day, Stop date: 01/30/12 9:00:00 PO No Longer Active Rainm 12/31 [facility] Saline Flush 0.9% 5 ml, Route: IVP, Drug Form: INJ, kg, PRN, PRN Line Flush, Start date: 01/01/12 8:33:00, Duration: 30 day, Stop date: 01/31/12 8:32:00 IVP No Longer Active [facility] 01/01/2012 [facility] Sodium Chloride 0.45% IV 1,000 mL 1,000 mL, Rate: 125 ml/hr, Infuse over: 8 hr, Route: IV, Dosing Weight 66.818 kg, Total Volume: 1,000, Start date: 01/01/12 8:33:00, Duration: 30 day, Stop date: 01/31/12 8:32:00 IV No Longer Active [facility] 01/01/2012 [facility] ondansetron 4 mg, 2 mL, Route: IVP, Drug form: INJ, ONCE, kg, PRN Nausea & Vomiting, Start date: 01/01/12 8:33:00 IVP No Longer Active [facility] 01/01/2012 [facility] Esgic 1 tab, Route: PO, Drug F orm: TAB, Q4H, PRN Other - See Comment, Start date: 01/01/12 0:36:00, Duration: 30 day, Stop date: 01/31/12 0:35:00 [facility]2012 [facility] temazepam 15 mg, 1 cap, Route: PO, Drug form: CAP, Bedtime, kg, Start date: 12/31/11 23:59:00, Duration: 30 day, Stop date: 01/30/12 21:00:00 PO No Longer Active Rainm 01/01/2012 [facility] nitroglycerin 0.4 mg sublingual tablet 0.4 mg, 1 tab, Route: SL, Drug form: TAB, Q5Min, PRN Chest Pain, Start date: 12/31/11 23:44:00, Duration: 30 day, Stop date: 01/30/12 23:43:00 SL No Longer Active Rainm 01/01/2012 [facility] atropine 0.5 mg, 5 mL, Route: IVP, Drug form: INJ, PRN, PRN Bradycardia, Start date: 12/31/11 23:43:00, Duration: 30 day, Stop date: 01/30/12 23:42:00 IVP No Longer Active Rainm 01/01/2012 [facility] trazodone 150 mg, 3 tab, Route : PO, Drug form: TAB, Bedtime, kg, PRN Sleep, Start date: 12/31/11 21:29:00, Duration: 30 day, Stop date: 01/30/12 21:28:00 PO No Longer Active [facility] 01/01/2012 [facility] NS + KCL 20mEq/L 1000ml (Premix) 1,000 mL 1,000 mL, Rate: 125 ml/hr, Infuse over: 8 hr, Route: IV, Dosing Weight 66.818 kg, Total Volume: 1,000, Start date: 12/31/11 21:27:00, Duration: 30 day, Stop date: 01/30/12 21:26:00 IV No Longer Active [facility] 01/01/2012 [facility] trazodone 150 mg oral tablet 1 50 mg, 1 tab, PO, Bedtime, PRN, 30 tab, insomnia (for waking up after taking other sleep meds), Substitution Allowed, TAB PO Active [facility] 01/01/2012 [facility] temazepam 15 mg oral capsule 1 5 mg, 1 cap, PO, Bedtime, Substitution Allowed, with zolpidem for PTSDwith zolpidem for PTSD PO Active [facility] 01/01/2012 [facility] zolpidem 10 mg oral tablet 20 mg, 2 tab, PO, Bedtime, Substitution Allowed, with temazepam for PTSDwith temazepam for PTSD PO Active 01/01/2012 [facility] Fioricet 1 tab, Route: PO, David g Form: TAB, kg, ONCE, Start date: 12/31/11 19:57:00, Stop date: 12/31/11 19:57:00 PO No Longer Active [facility] 01/01/2012 [facility] Zofran 4 mg, Route: PO, ONCE, Dosing Weight 66.818, kg, Start date: 12/31/11 19:27:00, Stop date: 12/31/11 19:27:00 PO No Longer Active [facility] 01/01/2012 [facility] acetaminophen 975 mg, 3 tab, R oute: PO, Drug form: TAB, ONCE, kg, Priority: STAT, Start date: 12/31/11 18:21:00, Stop date: 12/31/11 18:21:00 PO No Longer Active [facility] 12/31/2011 [facility] Sodium Chloride 0.9% (Bolus) IV 1,000 mL 1,000 mL, Rate: 1,000 ml/hr, Infuse over: 1 hr, Route: IV, Dosing Weight 66.818 kg, Total Volume: 1,000, Bolus Dose, Priority: STAT, Start date: 12/31/11 18:20:00, Duration: 1 doses or times, Stop date: 12/31/11 19:19:00 IV No Longer Active [facility] 12/31/2011 [facility] Zofran 4 mg, Route: IVP, Drug form: INJ, ONCE, Dosing Weight 66.875, kg, Priority: STAT, Start date: 12/31/11 0:45:00, Stop date: 12/31/11 0:45:00 IVP No Longer Active [facility] 12/31/2011 [facility] morphine Sulfate 2 mg, Route: IVP, ONCE, Dosing Weight 66.875, kg, Start date: 12/31/11 0:13:00, Stop date: 12/31/11 0:13:00 IVP No Longer Active [facility] 12/13 [facility] Saline Flush 0.9% 5 ml, Route: IVP, Drug Form: INJ, kg, PRN, PRN Line Flush, Start date: 12/30/11 23:07:00, Duration: 24 hr, Stop date: 12/31/11 23:06:00 IVP No Longer Active Mauriciorehan 12/31/2011 [facility] NS (Bolus) IV 1,000 mL 1,000 m L, Rate: 1,000 ml/hr, Infuse over: 1 hr, Route: IV, Dosing Weight 63 kg, Total Volume: 1,000, Priority: STAT, Start date: 10/16/11 1:26:00, Duration: 1 doses or times, Stop date: 10/16/11 2:25:00, Bolus DoseBolus Dose IV No Longer Active [facility]was 10/16/2011 [facility] Fioricet with Codeine oral capsule 2 cap, PO, Q4H, PRN, 20 cap, for headache, Substitution Allowed, Maintenance, CAP PO Active [facility] 10/10/2011 [facility] Pristiq 50 mg oral tablet, extended release 50 mg, 1 tab, Route: PO, Drug form: ERTAB, Daily, Start date: 10/10/11 9:00:00, Duration: 30 day, Stop date: 11/08/11 9:00:00 PO No Longer Active [facility] 10/10/2011 [facility] Pristiq 50mg Pristiq 50mg, (pt 's own med), Drug form: MISC, Route: PO, Daily, 10/10/11 9:00:00, Duration: 30 day, Stop date: 11/08/11 9:00:00 PO No Longer Active [facility] 10/10/2011 [facility] Benadryl 25 mg, 0.5 mL, Route: IV, Drug form: INJ, QID, PRN as needed for allergy symptoms, Start date: 10/09/11 19:07:00, Duration: 30 day, Stop date: 11/08/11 19:06:00 IV No Longer Active [facility] 10/10/2011 [facility] diazepam 10 mg, 1 tab, Route: PO, Drug form: TAB, QID, Start date: 10/09/11 17:00:00, Duration: 30 day, Stop date: 11/08/11 13:00:00 PO No Longer Active [facility] 2011 [facility] Fioricet with Codeine Fioricet with Codeine, (pt's own med), Drug form: MISC, Route: PO, Q4H, PRN Pain, 10/09/11 16:33:00, Duration: 30 day, Stop date: 11/08/11 16:32:00 PO No Longer Active Fang 10/09/2011 [facility] Fioricet 1 tab, Route: PO, David g Form: TAB, Q4H, PRN Headache, Start date: 10/09/11 16:29:00, Duration: 30 day, Stop date: 11/08/11 16:28:00 PO No Longer Active Fang 10/09/2011 [facility] Fioricet with Codeine 1 cap, R oute: PO, Drug Form: CAP, Q4H, PRN Headache, Start date: 10/09/11 16:28:00, Duration: 30 day, Stop date: 11/08/11 16:27:00 PO No Longer Active Fan 10/09/2011 [facility] Ambien 20 mg, 2 tab, Route: PO , Drug form: TAB, Bedtime, PRN Sleep, Start date: 10/09/11 15:54:00, Duration: 30 day, Stop date: 11/08/11 15:53:00 PO No Longer Active Fan 10/09/2011 [facility] Motrin 600 mg, 3 tab, Route: P O, Drug form: TAB, QID, PRN Pain, Start date: 10/09/11 15:27:00, Duration: 30 day, Stop date: 11/08/11 15:26:00 PO No Longer Active Fan 10/09/2011 [facility] trazodone 50 mg oral tablet 50 mg, 1 tab, Route: PO, Drug form: TAB, Bedtime, PRN Anxiety, Start date: 10/09/11 15:26:00, Duration: 30 day, Stop date: 11/08/11 15:25:00 PO No Longer Active Fang 10/09/2011 [facility] Ambien CR 25 mg, Route: PO, Dr ug form: ERTAB, Bedtime, PRN as needed for sleep, Start date: 10/09/11 15:26:00, Duration: 30 day, Stop date: 11/08/11 15:25:00 PO No Longer Active Fang 10/09/2011 [facility] Tylenol 650 mg, 2 tab, Route: PO, Drug form: TAB, Q6H, PRN Pain, Start date: 10/09/11 12:08:00, Duration: 30 day, Stop date: 11/08/11 12:07:00 PO No Longer Active [facility] 10/09/2011 [facility] Saline Flush 0.9% 5 ml, Route: IVP, Drug Form: INJ, Q12H, Start date: 10/09/11 9:00:00, Duration: 30 day, Stop date: 11/07/11 21:00:00 IVP No Longer Active [facility] 10/09/2011 [facility] Benadryl 50 mg, Route: IVP, ON CE, benadryl 50mg ivp x1 dose now, Start date: 10/09/11 5:50:00, Stop date: 10/09/11 5:50:00 IVP No Longer Active [facility] 2011 [facility] Benadryl 50 mg, 1 mL, Route: 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, 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, 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, PRN Itching, Start date: 10/09/11 5:46:00 IVP No Longer Active [facility] 10/09/2011 [facility] trazodone 50 mg oral tablet 50 mg, 1 tab, PO, PRN, as needed for insomnia if ambien does not work, Substitution Allowed, TAB PO Active [facility] 10/09/2011 [facility] Ambien CR 12.5 mg oral tablet, extended release 25 mg, 2 tab, PO, Bedtime, PRN, for sleep, Substitution Allowed, ERTAB PO Active [facility] 10/09/2011 [facility] nitroglycerin 0.4 mg sublingual tablet 0.4 mg, 1 tab, Route: SL, Drug form: TAB, Q5Min, PRN Chest Pain, Start date: 10/09/11 4:49:00, Duration: 30 day, Stop date: 11/08/11 4:48:00 SL No Longer Active [facility] 10/09/2011 [facility] atropine 0.5 mg, 5 mL, Route: IVP, Drug form: INJ, PRN, PRN Bradycardia, Start date: 10/09/11 4:48:00, Duration: 30 day, Stop date: 11/08/11 4:47:00 IVP No Longer Active [facility] 10/09/2011 [facility] Saline Flush 0.9% 5 ml, Route: IVP, Drug Form: INJ, PRN, PRN Line Flush, Start date: 10/09/11 4:44:00, Duration: 30 day, Stop date: 11/08/11 4:43:00 IVP No Longer Active [facility] 10/09/2011 [facility] acetaminophen-hydrocodone 325 mg-5 mg oral tablet 1 tab, Route: PO, ONCE, STAT, Start date: 10/09/11 3:40:00, Stop date: 10/09/11 3:40:00 PO No Longer Active [facility] 10/09/2011 [facility] potassium chloride 40 mEq, Rou te: PO, Drug form: ERTAB, ONCE, Priority: STAT, Start date: 10/09/11 3:33:00, Stop date: 10/09/11 3:33:00 PO No Longer Active [facility] 1/2NS 1,000 mL 1,000 mL, Rate: 125 ml/hr, Infuse over: 8 hr, Route: IV, Dosing Weight 62.727 kg, Total Volume: 1,000, Start date: 10/09/11 2:53:00, Duration: 30 day, Stop date: 11/08/11 2:52:00 IV No Longer Active [facility] 10/09/2011 [facility] influenza virus vaccine, inactivated 0.5 ml, Route: IM, Drug Form: INJ, Start date: 03/31/11 9:00:00, Stop date: 03/31/11 9:00:00 Inactive SYSTEM 03/31/2011 [facility], MICHAEL Dunn, [facility] Allergies, Adverse Reactions, Alerts Substance Category Reaction Severity Reaction type Status Date Reported Comments Source aspirin Assertion Drug allergy Active [facility] Augmentin Assertion Drug allergy Active [facility] Food MSG Assertion Drug allergy Active [facility] Imitrex Assertion Drug allergy Active [facility] iodine Assertion Drug allergy Active [facility] Iron (Ferrous Sulfate) drug al lergy Allergy Active [facility] Paper Tape Assertion Drug allergy Active [facility] shellfish Assertion Drug allergy Active [facility] Latex drug allergy Allergy Act jose maria [facility] Immunizations Immunization Date Given Site Status Last Updated Comments Source influenza virus vaccine, inactivated 07/18/2012 completed Altagracia [facility] influenza virus vaccine, inactivated 07/18/2012 Right deltoid completed Altagracia [facility], inactivated 03/31/2011 Not Given Artem [facility], MICHAEL Dunn,[facility] Hx pneumococcal vaccine 2010 completed Violetta fisher [facility], Ruma Ordoñezann,[facility] Hx pneumococcal vaccine 2010 completed [facility] Results Order Name Results Value Reference Range Date Interpretation Comments Source HEMATOLOGY Sed Rate 8 0 - 20 07/13/2016 [facility] IMMUNOLOGY C-REACTIVE PROTEIN <2.9 <=2.9 mg/L 07/13/2016 [facility] MCHC 33.4 32.0 - 36.0 07/13/2016 [facility] MPV 9.1 7.4 - 10.4 07/13/2016 [facility] RDW 15.9 11.5 - 14.5 07/13/2016 [facility] Platelet 271 133 - 450 07/13/2016 [facility] WBC 6.0 3.7 - 10.4 07/13/2016 [facility] MCH 30.8 27.0 - 31.0 07/13/2016 [facility] Hct 35.7 36.0 - 48.0 07/13/2016 [facility] MCV 92.3 80.0 - 98.0 07/13/2016 [facility] Hgb 11.9 12.0 - 16.0 07/13/2016 [facility] RBC 3.86 4.20 - 5.40 07/13/2016 [facility] Basophils # 0.1 0.0 - 0.2 07/13/2016 [facility] HEMATOLOGY Basophils 0.8 0.0 - 1.0 07/13/2016 [facility] Monocytes 8.8 2.0 - 12.0 07/13/2016 [facility] Eosinophils 8.6 0.0 - 4.0 07/13/2016 [facility] HEMATOLOGY Segs 38.1 45.0 - 75.0 07/13/2016 [facility] HEMATOLOGY Lymphocytes 43.7 20.0 - 40.0 07/13/2016 [facility] HEMATOLOGY Eosinophils # 0.5 0.0 - 0.5 07/13/2016 [facility] Monocytes # 0.5 0.0 - 0.8 07/13/2016 [facility] Lymphocytes # 2.6 1.0 - 5.5 07/13/2016 [facility] HEMATOLOGY Segs-Bands # 2.3 1.5 - 8.1 07/13/2016 [facility] CHEM PANEL Lipase Lvl 171 73 - 393 07/13/2016 [facility] CHEM PANEL eGFR 107 07/13/2016 Result [...] should be multiplied by the estimated BMI. [facility] CHEM PANEL AST 18 0 - 37 07/13/2016 [facility] CHEM PANEL Calcium Lvl 8.6 8.5 - 10.5 07/13/2016 [facility] CHEM PANEL Alk Phos 86 39 - 136 07/13/2016 [facility] CHEM PANEL Albumin Lvl 3.7 3.5 - 5.0 07/13/2016 [facility] CHEM PANEL ALT 64 0 - 65 07/13/2016 [facility] CHEM PANEL CO2 29 24 - 32 07/13/2016 [facility] CHEM PANEL Total Protein 6.7 6.4 - 8.4 07/13/2016 [facility] CHEM PANEL AGAP 10.3 10.0 - 20.0 07/13/2016 [facility] CHEM PANEL Bili Total <0.1 0.2 - 1.3 07/13/2016 [facility] CHEM PANEL B/C Ratio 23 6 - 25 07/13/2016 [facility] CHEM PANEL Globulin 3.0 2.7 - 4.2 07/13/2016 [facility] CHEM PANEL A/G Ratio 1.2 0.7 - 1.6 07/13/2016 [facility] CHEM PANEL Chloride Lvl 103 95 - 109 07/13/2016 [facility] CHEM PANEL Potassium Lvl 4.3 3.5 - 5.1 07/13/2016 [facility] CHEM PANEL Sodium Lvl 138 135 - 145 07/13/2016 [facility] CHEM PANEL Creatinine Lvl 0.71 0.50 - 1.40 07/13/2016 [facility] CHEM PANEL BUN 16 7 - 22 07/13/2016 [facility] CHEM PANEL Glucose Lvl 87 70 - 99 07/13/2016 [facility] URINE AND STOOL UA Turbidity Clear (07/13/16 4:47 AM) Clear 07/13/2016 [facility] URINE AND STOOL UA Color Yellow *NA* (07/13/16 4:47 AM) Yellow 07/13/2016 [facility] URINE AND STOOL UA Glucose Negative mg/dL Negative mg/dL 07/13/[address] [facility] [address] URINE AND STOOL UA Protein Negative mg/dL Negative mg/dL 07/13/[address] [facility] [address] URINE AND STOOL UA pH 5.0 5.0 - 8.0 07/13/2016 [facility] URINE AND STOOL UA Ketones Negative mg/dL Negative mg/dL 07/13/[address] [facility] [address] URINE AND STOOL UA Bili Negative *NA* (07/13/16 4:47 AM) Negative 07/13/2016 [facility] URINE AND STOOL UA Hyal Cast 1 0 - 2 07/13/2016 [facility] URINE AND STOOL UA Sq Epi Occasional /LPF Few /LPF 07/13/2016 [facility] URINE AND STOOL UA Leuk Est Small *ABN* (07/13/16 4:47 AM) Negative 07/13/2016 [facility] URINE AND STOOL UA Nitrite Negative (07/13/16 4:47 AM) Negative 07/13/2016 [facility] URINE AND STOOL UA WBC 5 0 - 5 07/13/2016 [facility] URINE AND STOOL UA RBC 3 0 - 2 07/13/2016 [facility] URINE AND STOOL UA Spec Grav 1.012 <=1.030 07/13/2016 [facility] URINE AND STOOL UA Urobilinogen <=1.0 mg/dL 0.1 - 1.0 07/13/2016 [facility] URINE AND STOOL UA Blood Negative (07/13/16 4:47 AM) Negative 07/13/2016 [facility] URINE CHEM U Preg Negat jose maria (07/13/16 4:47 AM) Negative 07/13/2016 [facility] HEMATOLOGY RDW 16.4 11.5 - 14.5 05/10/2016 [facility] HEMATOLOGY MPV 8.6 7.4 - 10.4 05/10/2016 [facility] HEMATOLOGY Platelet 304 133 - 450 05/10/2016 [facility] MCHC 33.0 32.0 - 36.0 05/10/2016 [facility] MCH 29.9 27.0 - 31.0 05/10/2016 [facility] HEMATOLOGY MCV 90.7 80.0 - 98.0 05/10/2016 [facility] HEMATOLOGY Hct 28.2 36.0 - 48.0 05/10/2016 [facility] HEMATOLOGY Hgb 9.3 12.0 - 16.0 05/10/2016 [facility] HEMATOLOGY RBC 3.10 4.20 - 5.40 05/10/2016 [facility] HEMATOLOGY WBC 10.2 3.7 - 10.4 05/10/2016 [facility] HEMATOLOGY Eosinophils 1.2 0.0 - 4.0 05/10/2016 [facility] HEMATOLOGY Basophils 0.7 0.0 - 1.0 05/10/2016 [facility] HEMATOLOGY Lymphocytes # 2.0 1.0 - 5.5 05/10/2016 [facility] HEMATOLOGY Segs-Bands # 7.2 1.5 - 8.1 05/10/2016 [facility] HEMATOLOGY Segs 70.1 45.0 - 75.0 05/10/2016 [facility] HEMATOLOGY Monocytes 8.1 2.0 - 12.0 05/10/2016 [facility] HEMATOLOGY Lymphocytes 19.9 20.0 - 40.0 05/10/2016 [facility] HEMATOLOGY Monocytes # 0.8 0.0 - 0.8 05/10/2016 [facility] HEMATOLOGY Basophils # 0.1 0.0 - 0.2 05/10/2016 [facility] HEMATOLOGY Eosinophils # 0.1 0.0 - 0.5 05/10/2016 [facility] CHEM PANEL A/G Ratio 1.1 0.7 - 1.6 05/05/2016 [facility] CHEM PANEL Globulin 2.6 2.7 - 4.2 05/05/2016 [facility] CHEM PANEL AGAP 11.8 10.0 - 20.0 05/05/2016 [facility] CHEM PANEL B/C Ratio 12 6 - 25 05/05/2016 [facility] CHEM PANEL eGFR 111 05/05/2016 Result [...] should be multiplied by the estimated BMI. [facility] CHEM PANEL AST 8 0 - 37 05/05/2016 [facility] CHEM PANEL Bili Total 0.1 0.2 - 1.3 05/05/2016 [facility] CHEM PANEL Alk Phos 65 39 - 136 05/05/2016 [facility] CHEM PANEL ALT 43 0 - 65 05/05/2016 [facility] CHEM PANEL Total Protein 5.4 6.4 - 8.4 05/05/2016 [facility] CHEM PANEL Albumin Lvl 2.8 3.5 - 5.0 05/05/2016 [facility] CHEM PANEL Chloride Lvl 105 95 - 109 05/05/2016 [facility] CHEM PANEL CO2 29 24 - 32 05/05/2016 [facility] CHEM PANEL Calcium Lvl 8.0 8.5 - 10.5 05/05/2016 [facility] CHEM PANEL Potassium Lvl 3.8 3.5 - 5.1 05/05/2016 [facility] CHEM PANEL Sodium Lvl 142 135 - 145 05/05/2016 [facility] CHEM PANEL BUN 8 7 - 22 05/05/2016 [facility] CHEM PANEL Creatinine Lvl 0.66 0.50 - 1.40 05/05/2016 [facility] CHEM PANEL Glucose Lvl 76 70 - 99 05/05/2016 [facility] HEMATOLOGY Segs 47.1 45.0 - 75.0 05/05/2016 [facility] HEMATOLOGY Lymphocytes 38.2 20.0 - 40.0 05/05/2016 [facility] HEMATOLOGY Lymphocytes # 2.0 1.0 - 5.5 05/05/2016 [facility] HEMATOLOGY Monocytes # 0.4 0.0 - 0.8 05/05/2016 [facility] HEMATOLOGY Segs-Bands # 2.5 1.5 - 8.1 05/05/2016 [facility] HEMATOLOGY Eosinophils # 0.4 0.0 - 0.5 05/05/2016 [facility] Monocytes 7.0 2.0 - 12.0 05/05/2016 [facility] HEMATOLOGY Basophils 0.9 0.0 - 1.0 05/05/2016 [facility] Eosinophils 6.8 0.0 - 4.0 05/05/2016 [facility] MCH 29.5 27.0 - 31.0 05/05/2016 [facility] Hct 24.6 36.0 - 48.0 05/05/2016 [facility] MCV 90.3 80.0 - 98.0 05/05/2016 [facility] RBC 2.73 4.20 - 5.40 05/05/2016 [facility] Hgb 8.1 12.0 - 16.0 05/05/2016 [facility] RDW 15.8 11.5 - 14.5 05/05/2016 [facility] MCHC 32.7 32.0 - 36.0 05/05/2016 [facility] MPV 8.8 7.4 - 10.4 05/05/2016 [facility] Platelet 330 133 - 450 05/05/2016 [facility] WBC 5.3 3.7 - 10.4 05/05/2016 [facility] PTT 28.5 22.9 - 35.8 04/30/2016 [facility] INR 0.93 0.85 - 1.17 04/30/2016 [facility] PT 12.7 12.0 - 14.7 04/30/2016 [facility] CHEM PANEL Lipase Lvl 172 73 - 393 04/30/2016 [facility] CHEM PANEL eGFR 102 04/30/2016 Result [...] B/C Ratio 26 6 - 25 04/30/2016 [facility] CHEM PANEL Globulin 3.0 2.7 - 4.2 04/30/2016 [facility] CHEM PANEL A/G Ratio 1.0 0.7 - 1.6 04/30/2016 [facility] ENDOCRINOLOGY hCG Tot 2 04/30/2016 [facility] HEMATOLOGY Basophils # 0.1 0.0 - 0.2 04/30/2016 [facility] HEMATOLOGY Eosinophils # 0.2 0.0 - 0.5 04/30/2016 [facility] HEMATOLOGY Monocytes # 0.6 0.0 - 0.8 04/30/2016 [facility] HEMATOLOGY Lymphocytes # 2.0 1.0 - 5.5 04/30/2016 [facility] HEMATOLOGY Lymphocytes 31.6 20.0 - 40.0 04/30/2016 [facility] HEMATOLOGY Eosinophils 3.4 0.0 - 4.0 04/30/2016 [facility] HEMATOLOGY Monocytes 9.3 2.0 - 12.0 04/30/2016 [facility] HEMATOLOGY Segs-Bands # 3.5 1.5 - 8.1 04/30/2016 [facility] HEMATOLOGY Basophils 1.2 0.0 - 1.0 04/30/2016 [facility] HEMATOLOGY Segs 54.5 45.0 - 75.0 04/30/2016 [facility] HEMATOLOGY RBC 3.30 4.20 - 5.40 04/30/2016 [facility] HEMATOLOGY WBC 6.4 3.7 - 10.4 04/30/2016 [facility] HEMATOLOGY Hct 29.9 36.0 - 48.0 04/30/2016 [facility] HEMATOLOGY MCV 90.6 80.0 - 98.0 04/30/2016 [facility] HEMATOLOGY Hgb 9.8 12.0 - 16.0 04/30/2016 [facility] HEMATOLOGY MPV 8.5 7.4 - 10.4 04/30/2016 [facility] HEMATOLOGY Platelet 391 133 - 450 04/30/2016 [facility] HEMATOLOGY RDW 15.6 11.5 - 14.5 04/30/2016 [facility] MCHC 32.9 32.0 - 36.0 04/30/2016 [facility] MCH 29.8 27.0 - 31.0 04/30/2016 [facility] URINE AND STOOL UA Leuk Est Trace *ABN* (04/29/16 8:56 PM) Negative 04/30/2016 [facility] URINE AND STOOL UA Bacteria Occasional /HPF None Seen /HPF 04/30/[address] [facility] [address] URINE AND STOOL UA RBC 1 0 - 2 04/30/2016 [facility] URINE AND STOOL UA Amorph Adrianne Few /HPF None Seen /HPF 04/30/[address] [facility] [address] URINE AND STOOL UA WBC 5 0 - 5 04/30/2016 [facility] URINE AND STOOL UA Sq Epi None Seen 04/30/2016 [facility] URINE AND STOOL UA Urobilinogen <=1.0 mg/dL 0.1 - 1.0 04/30/[address] [facility] [address] URINE AND STOOL UA pH 7.0 5.0 - 8.0 04/30/2016 [facility] URINE AND STOOL UA Protein Negative mg/dL Negative mg/dL 04/30/[address] [facility] [address] URINE AND STOOL UA Glucose Negative mg/dL Negative mg/dL 04/30/[address] [facility] [address] URINE AND STOOL UA Spec Grav 1.014 <=1.030 04/30/2016 [facility] URINE AND STOOL UA Turbidity Marked *ABN* (04/29/16 8:56 PM) Clear 04/30/2016 [facility] URINE AND STOOL UA Color Yellow *NA* (04/29/16 8:56 PM) Yellow 04/30/2016 [facility] URINE AND STOOL UA Nitrite Negative (04/29/16 8:56 PM) Negative 04/30/2016 [facility] URINE AND STOOL UA Blood Negative (04/29/16 8:56 PM) Negative 04/30/2016 [facility] URINE AND STOOL UA Bili Negative *NA* (04/29/16 8:56 PM) Negative 04/30/2016 [facility] URINE AND STOOL UA Ketones Negative mg/dL Negative mg/dL 04/30/2016 [facility] CHEM PANEL eGFR 90 04/12/2016 Result [...] should be multiplied by the estimated BMI. [facility] CHEM PANEL AST 9 0 - 37 04/12/2016 [facility] CHEM PANEL ALT 28 0 - 65 04/12/2016 [facility] CHEM PANEL Alk Phos 60 39 - 136 04/12/2016 [facility] CHEM PANEL Bili Total 0.2 0.2 - 1.3 04/12/2016 [facility] CHEM PANEL Calcium Lvl 8.8 8.5 - 10.5 04/12/2016 [facility] CHEM PANEL CO2 27 24 - 32 04/12/2016 [facility] CHEM PANEL Chloride Lvl 101 95 - 109 04/12/2016 [facility] CHEM PANEL Creatinine Lvl 0.82 0.50 - 1.40 04/12/2016 [facility] CHEM PANEL Glucose Lvl 96 70 - 99 04/12/2016 [facility] CHEM PANEL BUN 17 7 - 22 04/12/2016 [facility] CHEM PANEL Sodium Lvl 137 135 - 145 04/12/2016 [facility] CHEM PANEL Potassium Lvl 4.0 3.5 - 5.1 04/12/2016 [facility] CHEM PANEL Total Protein 6.7 6.4 - 8.4 04/12/2016 [facility] CHEM PANEL Albumin Lvl 3.6 3.5 - 5.0 04/12/2016 [facility] CHEM PANEL A/G Ratio 1.2 0.7 - 1.6 04/12/2016 [facility] CHEM PANEL B/C Ratio 21 6 - 25 04/12/2016 [facility] CHEM PANEL Globulin 3.1 2.7 - 4.2 04/12/2016 [facility] CHEM PANEL AGAP 13.0 10.0 - 20.0 04/12/2016 [facility] ENDOCRINOLOGY S Preg Ne gative *NA* (04/11/16 9:18 PM) Negative 04/12/2016 [facility] HEMATOLOGY MCH 29.6 27.0 - 31.0 04/12/2016 [facility] HEMATOLOGY MCHC 32.9 32.0 - 36.0 04/12/2016 [facility] HEMATOLOGY MCV 89.9 80.0 - 98.0 04/12/2016 [facility] HEMATOLOGY Hct 30.8 36.0 - 48.0 04/12/2016 [facility] HEMATOLOGY Platelet 381 133 - 450 04/12/2016 [facility] HEMATOLOGY MPV 8.7 7.4 - 10.4 04/12/2016 [facility] HEMATOLOGY RDW 15.4 11.5 - 14.5 04/12/2016 [facility] HEMATOLOGY RBC 3.43 4.20 - 5.40 04/12/2016 [facility] HEMATOLOGY WBC 7.1 3.7 - 10.4 04/12/2016 [facility] HEMATOLOGY Hgb 10.1 12.0 - 16.0 04/12/2016 [facility] HEMATOLOGY PTT 23.9 22.9 - 35.8 04/12/2016 [facility] HEMATOLOGY INR 0.93 0.85 - 1.17 04/12/2016 [facility] HEMATOLOGY PT 12.7 12.0 - 14.7 04/12/2016 [facility] HEMATOLOGY Monocytes # 0.5 0.0 - 0.8 04/12/2016 [facility] HEMATOLOGY Basophils # 0.1 0.0 - 0.2 04/12/2016 [facility] HEMATOLOGY Basophils 1.1 0.0 - 1.0 04/12/2016 [facility] HEMATOLOGY Segs-Bands # 4.3 1.5 - 8.1 04/12/2016 [facility] HEMATOLOGY Lymphocytes # 2.1 1.0 - 5.5 04/12/2016 [facility] HEMATOLOGY Eosinophils 0.6 0.0 - 4.0 04/12/2016 [facility] HEMATOLOGY Monocytes 7.4 2.0 - 12.0 04/12/2016 [facility] HEMATOLOGY Lymphocytes 29.9 20.0 - 40.0 04/12/2016 [facility] HEMATOLOGY Segs 61.0 45.0 - 75.0 04/12/2016 [facility] URINE AND STOOL UA Trans Epi 9 <=0 /LPF 04/12/2016 [facility] URINE AND STOOL UA Color Ltyellow 04/12/2016 [facility] URINE AND STOOL UA Urobilinogen <=1.0 mg/dL 0.1 - 1.0 04/12/2016 [facility] URINE AND STOOL UA Renal Epi 60 <=0 /LPF 04/12/2016 [facility] URINE AND STOOL UA Amorph Adrianne Few /HPF None Seen /HPF 04/12/2016 [facility] URINE AND STOOL UA RBC 2 0 - 2 04/12/2016 [facility] URINE AND STOOL UA [place] Yeast Occasional /HPF None Seen /HPF 04/12/2016 [facility] URINE AND STOOL UA Spec Grav 1.012 <=1.030 04/12/2016 [facility] URINE AND STOOL UA Turbidity Clear (04/11/16 9:04 PM) Clear 04/12/2016 [facility] URINE AND STOOL UA Glucose Negative mg/dL Negative mg/dL 04/12/2016 [facility] URINE AND STOOL UA Protein Negative mg/dL Negative mg/dL 04/12/2016 [facility] URINE AND STOOL UA pH 7.0 5.0 - 8.0 04/12/2016 [facility] URINE AND STOOL UA Bili Negative *NA* (04/11/16 9:04 PM) Negative 04/12/2016 [facility] URINE AND STOOL UA Ketones Negative mg/dL Negative mg/dL 04/12/2016 [facility] URINE AND STOOL UA Leuk Est Small *ABN* (04/11/16 9:04 PM) Negative 04/12/2016 [facility] URINE AND STOOL UA Nitrite Negative (04/11/16 9:04 PM) Negative 04/12/2016 [facility] URINE AND STOOL UA Blood Negative (04/11/16 9:04 PM) Negative 04/12/2016 [facility] URINE AND STOOL UA Sq Epi Occasional /LPF Few /LPF 04/12/2016 [facility] URINE AND STOOL UA WBC 8 0 - 5 04/12/2016 [facility] URINE AND STOOL UA Color Ltyellow 04/06/2016 [facility] URINE AND STOOL UA Urobilinogen <=1.0 mg/dL 0.1 - 1.0 04/06/2016 [facility] URINE AND STOOL UA Blood Negative (04/06/16 12:00 AM) Negative 04/06/2016 [facility] URINE AND STOOL UA Nitrite Negative (04/06/16 12:00 AM) Negative 04/06/2016 [facility] URINE AND STOOL UA Ketones Trace mg/dL Negative mg/dL 04/06/2016 [facility] URINE AND STOOL UA Bili Negative *NA* (04/06/16 12:00 AM) Negative 04/06/2016 [facility] URINE AND STOOL UA RBC <1 0 - 2 04/06/2016 [facility] URINE AND STOOL UA WBC <1 0 - 5 04/06/2016 [facility] URINE AND STOOL UA Leuk Est Trace *ABN* (04/06/16 12:00 AM) Negative 04/06/2016 [facility] URINE AND STOOL UA Sq Epi Occasional /LPF Few /LPF 04/06/2016 [facility] URINE AND STOOL UA Glucose Negative mg/dL Negative mg/dL 04/06/2016 [facility] URINE AND STOOL UA pH 8.0 5.0 - 8.0 04/06/2016 [facility] URINE AND STOOL UA Protein Negative mg/dL Negative mg/dL 04/06/2016 [facility] URINE AND STOOL UA Spec Grav 1.003 <=1.030 04/06/2016 [facility] URINE AND STOOL UA Turbidity Clear (04/06/16 12:00 AM) Clear 04/06/2016 [facility] CHEM PANEL Lipase Lvl 147 73 - 393 04/06/2016 [facility] CHEM PANEL Amylase Lvl 37 25 - 115 04/06/2016 [facility] CHEM PANEL Globulin 3.4 2.7 - 4.2 04/06/2016 [facility] CHEM PANEL A/G Ratio 1.2 0.7 - 1.6 04/06/2016 [facility] CHEM PANEL B/C Ratio 21 6 - 25 04/06/2016 [facility] CHEM PANEL AGAP 11.0 10.0 - 20.0 04/06/2016 [facility] CHEM PANEL eGFR 113 04/06/2016 Result [...] should be multiplied by the estimated BMI. [facility] CHEM PANEL Total Protein 7.6 6.4 - 8.4 04/06/2016 [facility] CHEM PANEL Albumin Lvl 4.2 3.5 - 5.0 04/06/2016 [facility] CHEM PANEL ALT 30 0 - 65 04/06/2016 [facility] CHEM PANEL AST 10 0 - 37 04/06/2016 [facility] CHEM PANEL Calcium Lvl 9.1 8.5 - 10.5 04/06/2016 [facility] CHEM PANEL Alk Phos 75 39 - 136 04/06/2016 [facility] CHEM PANEL Bili Total 0.3 0.2 - 1.3 04/06/2016 [facility] CHEM PANEL Chloride Lvl 100 95 - 109 04/06/2016 [facility] CHEM PANEL Potassium Lvl 4.0 3.5 - 5.1 04/06/2016 [facility] CHEM PANEL CO2 30 24 - 32 04/06/2016 [facility] CHEM PANEL Sodium Lvl 137 135 - 145 04/06/2016 [facility] CHEM PANEL BUN 13 7 - 22 04/06/2016 [facility] CHEM PANEL Creatinine Lvl 0.63 0.50 - 1.40 04/06/2016 [facility] CHEM PANEL Glucose Lvl 93 70 - 99 04/06/2016 [facility] CHEM PANEL Phosphorus 3.2 2.5 - 4.5 04/06/2016 [facility] CHEM PANEL Magnesium Lvl 2.7 1.8 - 2.4 04/06/2016 [facility] ENDOCRINOLOGY S Preg Ne gative *NA* (04/05/16 8:21 PM) Negative 04/06/2016 [facility] HEMATOLOGY Lymphocytes 13.3 20.0 - 40.0 04/06/2016 [facility] HEMATOLOGY Segs 82.4 45.0 - 75.0 04/06/2016 [facility] HEMATOLOGY Segs-Bands # 8.6 1.5 - 8.1 04/06/2016 [facility] HEMATOLOGY Basophils 0.2 0.0 - 1.0 04/06/2016 [facility] HEMATOLOGY Monocytes 4.1 2.0 - 12.0 04/06/2016 [facility] HEMATOLOGY Monocytes # 0.4 0.0 - 0.8 04/06/2016 [facility] HEMATOLOGY Lymphocytes # 1.4 1.0 - 5.5 04/06/2016 [facility] HEMATOLOGY Platelet 420 133 - 450 04/06/2016 [facility] HEMATOLOGY MPV 8.8 7.4 - 10.4 04/06/2016 [facility] HEMATOLOGY RDW 15.9 11.5 - 14.5 04/06/2016 [facility] MCH 29.4 27.0 - 31.0 04/06/2016 [facility] MCHC 32.4 32.0 - 36.0 04/06/2016 [facility] HEMATOLOGY Hct 33.5 36.0 - 48.0 04/06/2016 [facility] HEMATOLOGY MCV 90.6 80.0 - 98.0 04/06/2016 [facility] HEMATOLOGY Hgb 10.9 12.0 - 16.0 04/06/2016 [facility] HEMATOLOGY WBC 10.4 3.7 - 10.4 04/06/2016 [facility] HEMATOLOGY RBC 3.70 4.20 - 5.40 04/06/2016 [facility] URINE AND STOOL UA Urobilinogen <=1.0 mg/dL 0.1 - 1.0 03/03/[address] [facility] [address] URINE AND STOOL UA Color Ltyellow 03/03/2016 [facility] URINE AND STOOL UA Sq Epi Few /LPF Few /LPF 03/03/2016 [facility] URINE AND STOOL UA RBC 4 0 - 2 03/03/2016 [facility] URINE AND STOOL UA WBC 167 0 - 5 03/03/2016 [facility] URINE AND STOOL UA Renal Epi 17 <=0 /LPF 03/03/2016 [facility] URINE AND STOOL UA Bacteria Occasional /HPF None Seen /HPF 03/03/[address] [facility] [address] URINE AND STOOL UA Spec Grav 1.011 <=1.030 03/03/2016 [facility] URINE AND STOOL UA Turbidity Slight *ABN* (03/02/16 8:29 PM) Clear 03/03/2016 [facility] URINE AND STOOL UA Ketones Negative mg/dL Negative mg/dL 03/03/2016 [facility] URINE AND STOOL UA Blood Negative (03/02/16 8:29 PM) Negative 03/03/2016 [facility] URINE AND STOOL UA Protein Negative mg/dL Negative mg/dL 03/03/2016 [facility] URINE AND STOOL UA Bili Negative *NA* (03/02/16 8:29 PM) Negative 03/03/2016 [facility] URINE AND STOOL UA pH 5.0 5.0 - 8.0 03/03/2016 [facility] URINE AND STOOL UA Glucose Negative mg/dL Negative mg/dL 03/03/2016 [facility] URINE AND STOOL UA Leuk Est Large *ABN* (03/02/16 8:29 PM) Negative 03/03/2016 [facility] URINE AND STOOL UA Nitrite Negative (03/02/16 8:29 PM) Negative 03/03/2016 [facility] CHEM PANEL eGFR 114 03/03/2016 Result [...] should be multiplied by the estimated BMI. [facility] CHEM PANEL CO2 23 24 - 32 03/03/2016 [facility] CHEM PANEL Total Protein 7.1 6.4 - 8.4 03/03/2016 [facility] CHEM PANEL Calcium Lvl 8.8 8.5 - 10.5 03/03/2016 [facility] CHEM PANEL Sodium Lvl 140 135 [...] Bili Direct 0.1 0.0 - 0.3 03/03/2016 [facility] HEMATOLOGY Platelet 386 133 - 450 03/03/2016 [facility] HEMATOLOGY MPV 9.3 7.4 - 10.4 03/03/2016 [facility] HEMATOLOGY RDW 15.1 11.5 - 14.5 03/03/2016 [facility] HEMATOLOGY WBC 6.1 3.7 - 10.4 03/03/2016 [facility] HEMATOLOGY RBC 3.68 4.20 - 5.40 03/03/2016 [facility] HEMATOLOGY Hct 33.8 36.0 - 48.0 03/03/2016 [facility] HEMATOLOGY MCV 91.6 80.0 - 98.0 03/03/2016 [facility] HEMATOLOGY Hgb 11.2 12.0 - 16.0 03/03/2016 [facility] HEMATOLOGY MCHC 33.3 32.0 - 36.0 03/03/2016 [facility] HEMATOLOGY MCH 30.5 27.0 - 31.0 03/03/2016 [facility] HEMATOLOGY Monocytes # 0.5 0.0 - 0.8 03/03/2016 [facility] HEMATOLOGY Eosinophils # 0.2 0.0 - 0.5 03/03/2016 [facility] HEMATOLOGY Basophils # 0.1 0.0 - 0.2 03/03/2016 [facility] HEMATOLOGY Lymphocytes # 2.7 1.0 - 5.5 03/03/2016 [facility] HEMATOLOGY Basophils 0.9 0.0 - 1.0 03/03/2016 [facility] HEMATOLOGY Segs-Bands # 2.6 1.5 - 8.1 03/03/2016 [facility] Monocytes 8.3 2.0 - 12.0 03/03/2016 [facility] HEMATOLOGY Segs 43.4 45.0 - 75.0 03/03/2016 [facility] HEMATOLOGY Eosinophils 3.5 0.0 - 4.0 03/03/2016 [facility] Lymphocytes 43.9 20.0 - 40.0 03/03/2016 [facility] ELECTROLYTES Sodium Lvl 143 135 - 145 09/26/2014 [facility] ELECTROLYTES Chloride Lvl 107 95 - 109 09/26/2014 [facility] ELECTROLYTES Potassium Lvl 3.5 3.5 - 5.1 09/26/2014 [facility] ELECTROLYTES eGFR 110 09/26/2014 <sup>1</sup>Result Comment: [...] should be multiplied by the estimated BMI. [facility] ELECTROLYTES Glucose Lvl 82 70 - 99 09/26/2014 <sup>4</sup>Interpretive Data: Adult ref erence range values reflect the clinical guidelines
of the [employer]. [facility] ELECTROLYTES CO2 27 24 - 32 09/26/2014 [facility] ELECTROLYTES Creatinine Lvl 0.7 0.5 - 1.4 09/26/2014 [facility] ELECTROLYTES AGAP 12.5 10.0 - 20.0 09/26/2014 [facility] ELECTROLYTES Calcium Lvl 7.9 8.5 - 10.5 09/26/2014 [facility] ELECTROLYTES BUN 6 7 - 22 09/26/2014 [facility] ELECTROLYTES Sodium Lvl 144 135 - 145 09/23/2014 [facility] ELECTROLYTES Chloride Lvl 107 95 - 109 09/23/2014 [facility] ELECTROLYTES Potassium Lvl 4.1 3.5 - 5.1 09/23/2014 [facility] ELECTROLYTES eGFR 94 09/23/2014 <sup>2</sup>Result Comment: [...] should be multiplied by the estimated BMI. [facility] ELECTROLYTES AST 29 0 - 37 09/23/2014 [facility] ELECTROLYTES Bili Total 0.3 0.2 - 1.3 09/23/2014 [facility] ELECTROLYTES Alk Phos 238 39 - 136 09/23/2014 [facility] ELECTROLYTES Albumin Lvl 3.4 3.5 - 5.0 09/23/2014 [facility] ELECTROLYTES ALT 122 0 - 65 09/23/2014 [facility] ELECTROLYTES Total Protein 5.6 6.4 - 8.4 09/23/2014 [facility] ELECTROLYTES Calcium Lvl 8.3 8.5 - 10.5 09/23/2014 [facility] ELECTROLYTES BUN 4 7 - 22 09/23/2014 [facility] ELECTROLYTES Glucose Lvl 62 70 - 99 09/23/2014 <sup>5</sup>Interpretive Data: Adult ref erence range values reflect the clinical guidelines
of the [employer]. [facility] ELECTROLYTES Creatinine Lvl 0.8 0.5 - 1.4 09/23/2014 [facility] ELECTROLYTES CO2 29 24 - 32 09/23/2014 [facility] ELECTROLYTES AGAP 12.1 10.0 - 20.0 09/23/2014 [facility] ELECTROLYTES A/G Ratio 1.5 0.7 - 1.6 09/23/2014 [facility] ELECTROLYTES B/C Ratio 5 6 - 25 09/23/2014 [facility] ELECTROLYTES Globulin 2.2 2.0 - 4.0 09/23/2014 [facility] HEMATOLOGY Eosinophils # 0.7 0.0 - 0.5 09/23/2014 [facility] HEMATOLOGY Monocytes # 0.3 0.0 - 0.8 09/23/2014 [facility] HEMATOLOGY Lymphocytes # 1.5 1.0 - 5.5 09/23/2014 [facility] HEMATOLOGY Basophils 0.9 0.0 - 1.0 09/23/2014 [facility] HEMATOLOGY Eosinophils 17.0 0.0 - 4.0 09/23/2014 [facility] HEMATOLOGY Segs-Bands # 1.4 1.5 - 8.1 09/23/2014 [facility] HEMATOLOGY Monocytes 7.9 2.0 - 12.0 09/23/2014 [facility] HEMATOLOGY Lymphocytes 38.1 20.0 - 40.0 09/23/2014 [facility] HEMATOLOGY Segs 36.1 45.0 - 75.0 09/23/2014 [facility] MCH 32.1 27.0 - 31.0 09/23/2014 [facility] MCHC 33.5 32.0 - 36.0 09/23/2014 [facility] HEMATOLOGY MCV 95.9 80.0 - 98.0 09/23/2014 [facility] HEMATOLOGY Platelet 215 133 - 450 09/23/2014 [facility] HEMATOLOGY RDW 13.5 11.5 - 14.5 09/23/2014 [facility] HEMATOLOGY Hct 36.0 36.0 - 48.0 09/23/2014 [facility] Hgb 12.0 12.0 - 16.0 09/23/2014 [facility] RBC 3.75 4.20 - 5.40 09/23/2014 [facility] MPV 10.2 7.4 - 10.4 09/23/2014 [facility] HEMATOLOGY WBC 3.8 3.7 - 10.4 09/23/2014 [facility] ELECTROLYTES AGAP 12.6 10.0 - 20.0 09/19/2014 [facility] ELECTROLYTES A/G Ratio 1.3 0.7 - 1.6 09/19/2014 [facility] ELECTROLYTES B/C Ratio 4 6 - 25 09/19/2014 [facility] ELECTROLYTES Globulin 2.2 2.0 - 4.0 09/19/2014 [facility] ELECTROLYTES Potassium Lvl 3.6 3.5 - 5.1 09/19/2014 [facility] ELECTROLYTES Chloride Lvl 111 95 - 109 09/19/2014 [facility] ELECTROLYTES Calcium Lvl 8.0 8.5 - 10.5 09/19/2014 [facility] ELECTROLYTES Creatinine Lvl 0.8 0.5 - 1.4 09/19/2014 [facility] ELECTROLYTES Sodium Lvl 144 135 - 145 09/19/2014 [facility] ELECTROLYTES eGFR 94 09/19/2014 <sup>3</sup>Result Comment: [...] should be multiplied by the estimated BMI. [facility] ELECTROLYTES Bili Total 0.3 0.2 - 1.3 09/19/2014 [facility] ELECTROLYTES Alk Phos 225 39 - 136 09/19/2014 [facility] ELECTROLYTES AST 32 0 - 37 09/19/2014 [facility] ELECTROLYTES Total Protein 5.1 6.4 - 8.4 09/19/2014 [facility] ELECTROLYTES Albumin Lvl 2.9 3.5 - 5.0 09/19/2014 [facility] ELECTROLYTES CO2 24 24 - 32 09/19/2014 [facility] ELECTROLYTES ALT 177 0 - 65 09/19/2014 [facility] ELECTROLYTES Glucose Lvl 97 70 - 99 09/19/2014 <sup>6</sup>Interpretive Data: Adult ref erence range values reflect the clinical guidelines
of the [employer]. [facility] ELECTROLYTES BUN 3 7 - 22 09/19/2014 [facility] HEMATOLOGY Hgb 11.0 12.0 - 16.0 09/19/2014 [facility] RBC 3.41 4.20 - 5.40 09/19/2014 [facility] HEMATOLOGY MCV 96.2 80.0 - 98.0 09/19/2014 [facility] HEMATOLOGY Hct 32.8 36.0 - 48.0 09/19/2014 [facility] MCH 32.4 27.0 - 31.0 09/19/2014 [facility] RDW 14.0 11.5 - 14.5 09/19/2014 [facility] MPV 10.5 7.4 - 10.4 09/19/2014 [facility] MCHC 33.7 32.0 - 36.0 09/19/2014 [facility] Platelet 174 133 - 450 09/19/2014 [facility] WBC 4.1 3.7 - 10.4 09/19/2014 [facility] Lymphocytes 51.5 20.0 - 40.0 09/19/2014 [facility] HEMATOLOGY Segs 27.2 45.0 - 75.0 09/19/2014 [facility] HEMATOLOGY Basophils 0.6 0.0 - 1.0 09/19/2014 [facility] Eosinophils 13.5 0.0 - 4.0 09/19/2014 [facility] Lymphocytes # 2.1 1.0 - 5.5 09/19/2014 [facility] Monocytes # 0.3 0.0 - 0.8 09/19/2014 [facility] Eosinophils # 0.6 0.0 - 0.5 09/19/2014 [facility] Monocytes 7.2 2.0 - 12.0 09/19/2014 [facility] Segs-Bands # 1.1 1.5 - 8.1 09/19/2014 [facility] CHEM PANEL Albumin Lvl 3.4 3.5 - 5.0 09/18/2014 [facility] CHEM PANEL Globulin 2.4 2.0 - 4.0 09/18/2014 [facility] CHEM PANEL A/G Ratio 1.4 0.7 - 1.6 09/18/2014 [facility] CHEM PANEL ALT 233 0 - 65 09/18/2014 [facility] CHEM PANEL AST 51 0 - 37 09/18/2014 [facility] CHEM PANEL Total Protein 5.8 6.4 - 8.4 09/18/2014 [facility] CHEM PANEL Alk Phos 237 39 - 136 09/18/2014 [facility] CHEM PANEL Bili Total 0.2 0.2 - 1.3 09/18/2014 [facility] CHEM PANEL B/C Ratio 5 6 - 25 09/18/2014 [facility] HEMATOLOGY Monocytes 7.1 2.0 - 12.0 09/16/2014 [facility] HEMATOLOGY Segs 16.2 45.0 - 75.0 09/16/2014 [facility] Monocytes # 0.3 0.0 - 0.8 09/16/2014 [facility] HEMATOLOGY Basophils 0.8 0.0 - 1.0 09/16/2014 [facility] HEMATOLOGY Eosinophils 15.0 0.0 - 4.0 09/16/2014 [facility] Lymphocytes 60.9 20.0 - 40.0 09/16/2014 [facility] Lymphocytes # 2.5 1.0 - 5.5 09/16/2014 [facility] HEMATOLOGY Segs-Bands # 0.7 1.5 - 8.1 09/16/2014 [facility] Eosinophils # 0.6 0.0 - 0.5 09/16/2014 [facility] Plt Morph Ashlee l (09/16/14 5:00 AM) 09/16/2014 [facility] RBC Morph Ashlee l (09/16/14 5:00 AM) 09/16/2014 [facility] Platelet 185 133 - 450 09/16/2014 [facility] RDW 13.9 11.5 - 14.5 09/16/2014 [facility] RBC 3.42 4.20 - 5.40 09/16/2014 [facility] Hct 32.9 36.0 - 48.0 09/16/2014 [facility] Hgb 11.1 12.0 - 16.0 09/16/2014 [facility] MCH 32.3 27.0 - 31.0 09/16/2014 [facility] MCHC 33.6 32.0 - 36.0 09/16/2014 [facility] MCV 96.2 80.0 - 98.0 09/16/2014 [facility] MPV 10.9 7.4 - 10.4 09/16/2014 [facility] HEMATOLOGY WBC 4.2 3.7 - 10.4 09/16/2014 [facility] CHEM PANEL Lipase Lvl 131 73 - 393 09/15/2014 [facility] CHEM PANEL Magnesium Lvl 1.8 1.8 - 2.4 09/14/2014 [facility] CHEM PANEL Phosphorus 3.9 2.5 - 4.5 09/14/2014 [facility] HEMATOLOGY PTT 31.6 22.9 - 35.8 09/14/2014 <sup>9</sup>Interpretive Data: Heparin T herapeutic Range: 57 - 92 Seconds [facility] HEMATOLOGY PT 14.2 12.0 - 14.7 09/14/2014 [facility] HEMATOLOGY INR 1.09 0.85 - 1.17 09/14/2014 <sup>7</sup>Interpretive Data: RECOMMEND ED RANGES FOR PROTIME INR:
2.0-3.0 for most medical and surgical thromboembolic states.
2.5-3.5 for artificial heart valves and recurrent embolism.

INR SHOULD BE USED ONLY FOR PATIENTS ON STABLE ANTICOAGULANT THERAPY. [facility] CARDIAC ENZYMES Total CK 113 12 - 191 09/14/2014 [facility] CHEM PANEL Magnesium Lvl 1.9 1.8 - 2.4 09/14/2014 [facility] CHEM PANEL Lipase Lvl 178 73 - 393 09/14/2014 [facility] CHEM PANEL Phosphorus 3.0 2.5 - 4.5 09/14/2014 [facility] CHEM PANEL Amylase Lvl 43 25 - 115 09/14/2014 [facility] HEMATOLOGY INR 0.97 0.85 - 1.17 09/14/2014 <sup>8</sup>Interpretive Data: RECOMMEND ED RANGES FOR PROTIME INR:
2.0-3.0 for most medical and surgical thromboembolic states.
2.5-3.5 for artificial heart valves and recurrent embolism.

INR SHOULD BE USED ONLY FOR PATIENTS ON STABLE ANTICOAGULANT THERAPY. [facility] HEMATOLOGY PT 12.9 12.0 - 14.7 09/14/2014 [facility] PTT 33.0 22.9 - 35.8 09/14/2014 <sup>10</sup>Interpretive Data: Heparin Therapeutic Range: 57 - 92 Seconds [facility] URINE AND STOOL UA Color Ltyellow 09/14/2014 [facility] URINE AND STOOL UA Urobilinogen <=1.0 mg/dL 0.1 - 1.0 09/14/2014 [facility] URINE AND STOOL UA Nitrite Negative (09/13/14 11:03 PM) Negative 09/14/2014 [facility] URINE AND STOOL UA Leuk Est Negative (09/13/14 11:03 PM) Negative 09/14/2014 [facility] URINE AND STOOL UA Sq Epi Occasional /LPF Few /LPF 09/14/2014 [facility] URINE AND STOOL UA Protein Negative mg/dL Negative mg/dL 09/14/2014 [facility] URINE AND STOOL UA Glucose Negative mg/dL Negative mg/dL 09/14/2014 [facility] URINE AND STOOL UA Ketones Negative mg/dL Negative mg/dL 09/14/2014 [facility] URINE AND STOOL UA Bili Negative *NA* (09/13/14 11:03 PM) Negative 09/14/2014 [facility] URINE AND STOOL UA Blood Negative (09/13/14 11:03 PM) Negative 09/14/2014 [facility] URINE AND STOOL UA pH 5.0 5.0 - 8.0 09/14/2014 [facility] URINE AND STOOL UA Spec Grav 1.020 <=1.030 09/14/2014 [facility] URINE AND STOOL UA Turbidity Clear (09/13/14 11:03 PM) Clear 09/14/2014 [facility] ENDOCRINOLOGY hCG Tot 4 12/16/2013 <sup>7</sup>Interpretive [...] 8,175 - 55,868
18 8,099 - 58,176 [facility] CHEM PANEL B/C Ratio 14 6 - 25 12/16/2013 [facility] CHEM PANEL A/G Ratio 1.1 0.7 - 1.6 12/16/2013 [facility] CHEM PANEL Globulin 3.0 2.0 - 4.0 12/16/2013 [facility] CHEM PANEL AGAP 7.9 10.0 - 20.0 12/16/2013 [facility] CHEM PANEL eGFR 94 12/16/2013 <sup>1</sup>Result [...] should be multiplied by the estimated BMI. [facility] CHEM PANEL Bili Total <0.1 0.2 - 1.3 12/16/2013 [facility] CHEM PANEL Alk Phos 262 39 - 136 12/16/2013 [facility] CHEM PANEL Total Protein 6.4 6.4 - 8.4 12/16/2013 [facility] CHEM PANEL Albumin Lvl 3.4 3.5 - 5.0 12/16/2013 [facility] CHEM PANEL Creatinine Lvl 0.8 0.5 - 1.4 12/16/2013 [facility] CHEM PANEL BUN 11 7 - 22 12/16/2013 [facility] CHEM PANEL Chloride Lvl 107 95 - 109 12/16/2013 [facility] CHEM PANEL ALT 332 0 - 65 12/16/2013 [facility] CHEM PANEL AST 142 0 - 37 12/16/2013 [facility] CHEM PANEL Sodium Lvl 139 135 - 145 12/16/2013 [facility] CHEM PANEL Glucose Lvl 93 70 - 99 12/16/2013 <sup>4</sup>Interpretive Data: Adult ref erence range values reflect the clinical guidelines
of the [employer]. [facility] CHEM PANEL Potassium Lvl 5.9 3.5 - 5.1 12/16/2013 [facility] CHEM PANEL Calcium Lvl 9.5 8.5 - 10.5 12/16/2013 [facility] CHEM PANEL CO2 30 24 - 32 12/16/2013 [facility] HEMATOLOGY Segs-Bands # 1.4 1.5 - 8.1 12/16/2013 [facility] HEMATOLOGY Lymphocytes # 2.1 1.0 - 5.5 12/16/2013 [facility] HEMATOLOGY Eosinophils # 0.3 0.0 - 0.5 12/16/2013 [facility] HEMATOLOGY Monocytes # 0.4 0.0 - 0.8 12/16/2013 [facility] HEMATOLOGY Segs 33.9 45.0 - 75.0 12/16/2013 [facility] HEMATOLOGY Monocytes 8.6 2.0 - 12.0 12/16/2013 [facility] HEMATOLOGY Eosinophils 6.6 0.0 - 4.0 12/16/2013 [facility] HEMATOLOGY Basophils 0.9 0.0 - 1.0 12/16/2013 [facility] HEMATOLOGY Lymphocytes 50.0 20.0 - 40.0 12/16/2013 [facility] HEMATOLOGY MPV 10.1 7.4 - 10.4 12/16/2013 [facility] HEMATOLOGY RDW 14.3 11.5 - 14.5 12/16/2013 [facility] HEMATOLOGY Platelet 233 133 - 450 12/16/2013 [facility] HEMATOLOGY MCV 98.1 81.0 - 99.0 12/16/2013 [facility] HEMATOLOGY MCH 32.5 27.0 - 31.0 12/16/2013 [facility] MCHC 33.1 32.0 - 36.0 12/16/2013 [facility] HEMATOLOGY Hct 33.6 36.0 - 48.0 12/16/2013 [facility] HEMATOLOGY Hgb 11.1 12.0 - 16.0 12/16/2013 [facility] HEMATOLOGY RBC 3.43 4.20 - 5.40 12/16/2013 [facility] HEMATOLOGY WBC 4.2 3.7 - 10.4 12/16/2013 [facility] CHEM PANEL eGFR 94 12/15/2013 <sup>2</sup>Result [...] should be multiplied by the estimated BMI. [facility] CHEM PANEL Bili Total 0.2 0.2 - 1.3 12/15/2013 [facility] CHEM PANEL ALT 329 0 - 65 12/15/2013 [facility] CHEM PANEL Total Protein 6.7 6.4 - 8.4 12/15/2013 [facility] CHEM PANEL CO2 30 24 - 32 12/15/2013 [facility] CHEM PANEL Calcium Lvl 9.2 8.5 - 10.5 12/15/2013 [facility] CHEM PANEL Albumin Lvl 3.7 3.5 - 5.0 12/15/2013 [facility] CHEM PANEL AST 116 0 - 37 12/15/2013 [facility] CHEM PANEL Alk Phos 291 39 - 136 12/15/2013 [facility] CHEM PANEL Chloride Lvl 104 95 - 109 12/15/2013 [facility] CHEM PANEL Potassium Lvl 5.2 3.5 - 5.1 12/15/2013 [facility] CHEM PANEL BUN 13 7 - 22 12/15/2013 [facility] CHEM PANEL Glucose Lvl 77 70 - 99 12/15/2013 <sup>5</sup>Interpretive Data: Adult ref erence range values reflect the clinical guidelines
of the [employer]. [facility] CHEM PANEL Sodium Lvl 140 135 - 145 12/15/2013 [facility] CHEM PANEL Creatinine Lvl 0.8 0.5 - 1.4 12/15/2013 [facility] CHEM PANEL B/C Ratio 16 6 - 25 12/15/2013 [facility] CHEM PANEL AGAP 11.2 10.0 - 20.0 12/15/2013 [facility] CHEM PANEL A/G Ratio 1.2 0.7 - 1.6 12/15/2013 [facility] CHEM PANEL Globulin 3.0 2.0 - 4.0 12/15/2013 [facility] HEMATOLOGY Eosinophils # 0.2 0.0 - 0.5 12/15/2013 [facility] HEMATOLOGY Monocytes # 0.3 0.0 - 0.8 12/15/2013 [facility] HEMATOLOGY Lymphocytes # 1.8 1.0 - 5.5 12/15/2013 [facility] HEMATOLOGY Basophils 0.9 0.0 - 1.0 12/15/2013 [facility] HEMATOLOGY Segs-Bands # 0.9 1.5 - 8.1 12/15/2013 [facility] HEMATOLOGY Eosinophils 6.9 0.0 - 4.0 12/15/2013 [facility] HEMATOLOGY Lymphocytes 56.8 20.0 - 40.0 12/15/2013 [facility] HEMATOLOGY Monocytes 8.3 2.0 - 12.0 12/15/2013 [facility] HEMATOLOGY Segs 27.1 45.0 - 75.0 12/15/2013 [facility] HEMATOLOGY Hgb 11.7 12.0 - 16.0 12/15/2013 [facility] HEMATOLOGY Hct 35.0 36.0 - 48.0 12/15/2013 [facility] HEMATOLOGY Platelet 208 133 - 450 12/15/2013 [facility] HEMATOLOGY RDW 13.9 11.5 - 14.5 12/15/2013 [facility] HEMATOLOGY MCHC 33.3 32.0 - 36.0 12/15/2013 [facility] HEMATOLOGY MPV 10.0 7.4 - 10.4 12/15/2013 [facility] MCH 32.7 27.0 - 31.0 12/15/2013 [facility] HEMATOLOGY MCV 98.1 81.0 - 99.0 12/15/2013 [facility] HEMATOLOGY WBC 3.2 3.7 - 10.4 12/15/2013 [facility] HEMATOLOGY RBC 3.56 4.20 - 5.40 12/15/2013 [facility] HEMATOLOGY MCV 98.3 81.0 - 99.0 12/14/2013 [facility] MCH 32.0 27.0 - 31.0 12/14/2013 [facility] RBC 3.70 4.20 - 5.40 12/14/2013 [facility] Hct 36.4 36.0 - 48.0 12/14/2013 [facility] Hgb 11.9 12.0 - 16.0 12/14/2013 [facility] WBC 5.0 3.7 - 10.4 12/14/2013 [facility] MCHC 32.6 32.0 - 36.0 12/14/2013 [facility] RDW 14.1 11.5 - 14.5 12/14/2013 [facility] MPV 10.5 7.4 - 10.4 12/14/2013 [facility] Platelet 219 133 - 450 12/14/2013 [facility] Eosinophils # 0.3 0.0 - 0.5 12/14/2013 [facility] Basophils 0.8 0.0 - 1.0 12/14/2013 [facility] Lymphocytes # 3.2 1.0 - 5.5 12/14/2013 [facility] Segs-Bands # 1.3 1.5 - 8.1 12/14/2013 [facility] Monocytes # 0.2 0.0 - 0.8 12/14/2013 [facility] Plt Morph Ashlee l (12/14/13 5:17 AM) 12/14/2013 [facility] Segs 25.5 45.0 - 75.0 12/14/2013 [facility] Monocytes 4.1 2.0 - 12.0 12/14/2013 [facility] Eosinophils 6.5 0.0 - 4.0 12/14/2013 [facility] Lymphocytes 63.1 20.0 - 40.0 12/14/2013 [facility] RBC Morph Ashlee l (12/14/13 5:17 AM) 12/14/2013 [facility] CHEM PANEL eGFR 111 12/13/2013 <sup>3</sup>Result [...] should be multiplied by the estimated BMI. [facility] CHEM PANEL Bili Total 0.2 0.2 - 1.3 12/13/2013 [facility] CHEM PANEL ALT 249 0 - 65 12/13/2013 [facility] CHEM PANEL Albumin Lvl 2.9 3.5 - 5.0 12/13/2013 [facility] CHEM PANEL Sodium Lvl 141 135 - 145 12/13/2013 [facility] CHEM PANEL BUN 11 7 - 22 12/13/2013 [facility] CHEM PANEL Creatinine Lvl 0.7 0.5 - 1.4 12/13/2013 [facility] CHEM PANEL CO2 27 24 - 32 12/13/2013 [facility] CHEM PANEL Calcium Lvl 8.2 8.5 - 10.5 12/13/2013 [facility] CHEM PANEL Total Protein 5.2 6.4 - 8.4 12/13/2013 [facility] CHEM PANEL AST 65 0 - 37 12/13/2013 [facility] CHEM PANEL Alk Phos 265 39 - 136 12/13/2013 [facility] CHEM PANEL Potassium Lvl 4.6 3.5 - 5.1 12/13/2013 [facility] CHEM PANEL Chloride Lvl 107 95 - 109 12/13/2013 [facility] CHEM PANEL Glucose Lvl 82 70 - 99 12/13/2013 <sup>6</sup>Interpretive Data: Adult ref erence range values reflect the clinical guidelines
of the [employer]. [facility] CHEM PANEL B/C Ratio 16 6 - 25 12/13/2013 [facility] CHEM PANEL AGAP 11.6 10.0 - 20.0 12/13/2013 [facility] CHEM PANEL Globulin 2.3 2.0 - 4.0 12/13/2013 [facility] CHEM PANEL A/G Ratio 1.3 0.7 - 1.6 12/13/2013 [facility] ANEMIA STUDY Folate Lvl 10.8 >=3.0 ng/mL 12/13/2013 [facility] ANEMIA STUDY Vitamin B12 Lvl 295 254 - 1320 12/13/2013 [facility] ANEMIA STUDY Iron 114 30 - 160 12/13/2013 [facility] ANEMIA STUDY UIBC 260 110 - 370 12/13/2013 [facility] ANEMIA STUDY TIBC 374 228 - 428 12/13/2013 [facility] ANEMIA STUDY % Satur Fe 30 12 - 57 12/13/2013 [facility] ANEMIA STUDY Ferritin Lvl 25 5 - 204 12/13/2013 [facility] ANEMIA STUDY Ferritin Lvl 31 5 - 204 12/12/2013 [facility] HEMATOLOGY INR 0.95 0.85 - 1.17 12/12/2013 <sup>8</sup>Interpretive Data: RECOMMEND ED RANGES FOR PROTIME INR:
2.0-3.0 for most medical and surgical thromboembolic states.
2.5-3.5 for artificial heart valves and recurrent embolism.

INR SHOULD BE USED ONLY FOR PATIENTS ON STABLE ANTICOAGULANT THERAPY. [facility] HEMATOLOGY PT 12.6 12.0 - 14.7 12/12/2013 [facility] URINE AND STOOL UA Urobilinogen <=1.0 mg/dL 0.1 - 1.0 12/10/2013 [facility] URINE AND STOOL UA Color Ltyellow 12/10/2013 [facility] URINE AND STOOL UA Nitrite Negative (12/10/13 5:30 PM) Negative 12/10/2013 [facility] URINE AND STOOL UA Leuk Est Trace *ABN* (12/10/13 5:30 PM) Negative 12/10/2013 [facility] URINE AND STOOL UA Sq Epi Occasional /LPF Few /LPF 12/10/2013 [facility] URINE AND STOOL UA WBC 3 0 - 5 12/10/2013 [facility] URINE AND STOOL UA Spec Grav 1.004 <=1.030 12/10/2013 [facility] URINE AND STOOL UA Turbidity Clear (12/10/13 5:30 PM) Clear 12/10/2013 [facility] URINE AND STOOL UA pH 7.0 5.0 - 8.0 12/10/2013 [facility] URINE AND STOOL UA Bili Negative *NA* (12/10/13 5:30 PM) Negative 12/10/2013 [facility] URINE AND STOOL UA Ketones Negative mg/dL Negative mg/dL 12/10/2013 [facility] URINE AND STOOL UA Blood Negative (12/10/13 5:30 PM) Negative 12/10/2013 [facility] URINE AND STOOL UA Glucose Negative mg/dL Negative mg/dL 12/10/2013 [facility] URINE AND STOOL UA Protein Negative mg/dL Negative mg/dL 12/10/2013 [facility] CHEM PANEL Magnesium Lvl 1.9 1.8 - 2.4 12/10/2013 [facility] H pylori IgG <0.4 09/24/2013 <sup>3</sup>Interpretive [...] it differentiate between active and past infection. [facility] URINE AND STOOL UA Color Ltyellow 09/19/2013 [facility] URINE AND STOOL UA Urobilinogen <=1.0 mg/dL 0.1 - 1.0 09/19/2013 [facility] URINE AND STOOL UA Spec Grav 1.008 <=1.030 09/19/2013 [facility] URINE AND STOOL UA Turbidity Clear (09/19/13 12:40 AM) Clear 09/19/2013 [facility] URINE AND STOOL UA Hyal Cast 6 0 - 2 09/19/2013 [facility] URINE AND STOOL UA Glucose Negative mg/dL Negative mg/dL 09/19/2013 [facility] URINE AND STOOL UA RBC <1 0 - 2 09/19/2013 [facility] URINE AND STOOL UA WBC 2 0 - 5 09/19/2013 [facility] URINE AND STOOL UA Blood Small *ABN* (09/19/13 12:40 AM) Negative 09/19/2013 [facility] URINE AND STOOL UA Ketones Trace mg/dL Negative mg/dL 09/19/2013 [facility] URINE AND STOOL UA Bili Negative *NA* (09/19/13 12:40 AM) Negative 09/19/2013 [facility] URINE AND STOOL UA Protein Negative mg/dL Negative mg/dL 09/19/2013 [facility] URINE AND STOOL UA pH 6.0 5.0 - 8.0 09/19/2013 [facility] URINE AND STOOL UA Sq Epi Occasional /LPF Few /LPF 09/19/2013 [facility] URINE AND STOOL UA Leuk Est Small *ABN* (09/19/13 12:40 AM) Negative 09/19/2013 [facility] URINE AND STOOL UA Nitrite Negative (09/19/13 12:40 AM) Negative 09/19/2013 [facility] CHEM PANEL A/G Ratio 1.3 0.7 - 1.6 09/19/2013 [facility] CHEM PANEL Globulin 3.1 2.0 - 4.0 09/19/2013 [facility] CHEM PANEL B/C Ratio 17 6 - 25 09/19/2013 [facility] CHEM PANEL AGAP 12.5 10.0 - 20.0 09/19/2013 [facility] CHEM PANEL eGFR 111 09/19/2013 <sup>1</sup>Result [...] should be multiplied by the estimated BMI. [facility] CHEM PANEL BUN 12 7 - 22 09/19/2013 [facility] CHEM PANEL Glucose Lvl 90 70 - 99 09/19/2013 <sup>2</sup>Interpretive Data: Adult ref erence range values reflect the clinical guidelines
of the [employer]. [facility] CHEM PANEL Creatinine Lvl 0.7 0.5 - 1.4 09/19/2013 [facility] CHEM PANEL Bili Total 0.5 0.2 - 1.3 09/19/2013 [facility] CHEM PANEL AST 358 0 - 37 09/19/2013 [facility] CHEM PANEL Alk Phos 308 39 - 136 09/19/2013 [facility] CHEM PANEL Calcium Lvl 8.9 8.5 - 10.5 09/19/2013 [facility] CHEM PANEL CO2 25 24 - 32 09/19/2013 [facility] CHEM PANEL Albumin Lvl 4.0 3.5 - 5.0 09/19/2013 [facility] CHEM PANEL Total Protein 7.1 6.4 - 8.4 09/19/2013 [facility] CHEM PANEL ALT 330 0 - 65 09/19/2013 [facility] CHEM PANEL Potassium Lvl 3.5 3.5 - 5.1 09/19/2013 [facility] CHEM PANEL Sodium Lvl 136 135 - 145 09/19/2013 [facility] CHEM PANEL Chloride Lvl 102 95 - 109 09/19/2013 [facility] CHEM PANEL Magnesium Lvl 1.9 1.8 - 2.4 09/19/2013 [facility] HEMATOLOGY Platelet 300 133 - 450 09/19/2013 [facility] HEMATOLOGY MCHC 33.9 32.0 - 36.0 09/19/2013 [facility] MCH 31.9 27.0 - 31.0 09/19/2013 [facility] HEMATOLOGY MPV 9.0 7.4 - 10.4 09/19/2013 [facility] HEMATOLOGY RDW 13.7 11.5 - 14.5 09/19/2013 [facility] HEMATOLOGY Hct 35.9 36.0 - 48.0 09/19/2013 [facility] HEMATOLOGY Hgb 12.2 12.0 - 16.0 09/19/2013 [facility] HEMATOLOGY RBC 3.81 4.20 - 5.40 09/19/2013 [facility] HEMATOLOGY MCV 94.2 81.0 - 99.0 09/19/2013 [facility] HEMATOLOGY WBC 5.8 3.7 - 10.4 09/19/2013 [facility] HEMATOLOGY Basophils 0.3 0.0 - 1.0 09/19/2013 [facility] HEMATOLOGY Monocytes 7.2 2.0 - 12.0 09/19/2013 [facility] HEMATOLOGY Segs-Bands # 3.4 1.5 - 8.1 09/19/2013 [facility] HEMATOLOGY Lymphocytes 30.1 20.0 - 40.0 09/19/2013 [facility] HEMATOLOGY Segs 58.4 45.0 - 75.0 09/19/2013 [facility] HEMATOLOGY Monocytes # 0.4 0.0 - 0.8 09/19/2013 [facility] HEMATOLOGY Lymphocytes # 1.7 1.0 - 5.5 09/19/2013 [facility] HEMATOLOGY Basophils # 0.0 0.0 - 0.2 09/19/2013 [facility] HEMATOLOGY Eosinophils # 0.2 0.0 - 0.5 09/19/2013 [facility] HEMATOLOGY Eosinophils 4.0 0.0 - 4.0 09/19/2013 [facility] CHEM PANEL eGFR 111 09/13/2013 <sup>3</sup>Result [...] should be multiplied by the estimated BMI. [facility] CHEM PANEL AGAP 12.9 10.0 - 20.0 09/13/2013 [facility] CHEM PANEL CO2 27 24 - 32 09/13/2013 [facility] CHEM PANEL Calcium Lvl 8.6 8.5 - 10.5 09/13/2013 [facility] CHEM PANEL Creatinine Lvl 0.7 0.5 - 1.4 09/13/2013 [facility] CHEM PANEL Chloride Lvl 105 95 - 109 09/13/2013 [facility] CHEM PANEL BUN 9 7 - 22 09/13/2013 [facility] CHEM PANEL Potassium Lvl 3.9 3.5 - 5.1 09/13/2013 [facility] CHEM PANEL Sodium Lvl 141 135 - 145 09/13/2013 [facility] CHEM PANEL Glucose Lvl 126 70 - 99 09/13/2013 <sup>6</sup>Interpretive Data: Adult ref erence range values reflect the clinical guidelines
of the [employer]. [facility] ELECTROLYTES Potassium Lvl 3.6 3.5 - 5.1 09/13/2013 [facility] ANEMIA STUDY Iron 41 30 - 160 09/13/2013 [facility] ANEMIA STUDY TIBC 415 228 - 428 09/13/2013 [facility] ANEMIA STUDY % Satur Fe 10 12 - 57 09/13/2013 [facility] ANEMIA STUDY UIBC 374 110 - 370 09/13/2013 [facility] ANEMIA STUDY Vitamin B12 Lvl 158 254 - 1320 09/13/2013 [facility] BLOOD BANK RESULTS ABO/Rh O POS 09/13/2013 [facility] BLOOD BANK RESULTS Antibody Scrn Negative (09/12/13 9:45 PM) 09/13/2013 [facility] CHEM PANEL Bili Direct <0.1 0.0 - 0.3 09/13/2013 [facility] CHEM PANEL Magnesium Lvl 1.9 1.8 - 2.4 09/13/2013 [facility] CHEM PANEL Phosphorus 5.3 2.5 - 4.5 09/13/2013 [facility] CHEM PANEL Lipase Lvl 92 73 - 393 09/13/2013 [facility] CHEM PANEL Amylase Lvl 29 25 - 115 09/13/2013 [facility] CHEM PANEL Creatinine Lvl <0.1 mg/dL 0.5 - 1.4 09/13/2013 [facility] CHEM PANEL BUN 11 7 - 22 09/13/2013 [facility] CHEM PANEL Glucose Lvl 63 70 - 99 09/13/2013 <sup>7</sup>Interpretive Data: Adult ref erence range values reflect the clinical guidelines
of the [employer]. [facility] CHEM PANEL Bili Total <0.1 mg/dL 0.2 - 1.3 09/13/2013 [facility] CHEM PANEL ASPARTATE TRANSAMINASE 82 0 - 37 09/13/2013 [facility] CHEM PANEL Alk Phos 225 39 - 136 09/13/2013 [facility] CHEM PANEL A/G Ratio 1.0 0.7 - 1.6 09/13/2013 [facility] CHEM PANEL ALANINE AMINOTRANSFERASE 119 0 - 65 09/13/2013 [facility] CHEM PANEL Globulin 4.0 2.0 - 4.0 09/13/2013 [facility] CHEM PANEL Albumin Lvl 3.9 3.5 - 5.0 09/13/2013 [facility] CHEM PANEL Calcium Lvl 8.6 8.5 - 10.5 09/13/2013 [facility] CHEM PANEL Total Protein 7.9 6.4 - 8.4 09/13/2013 [facility] CHEM PANEL AGAP 13.6 10.0 - 20.0 09/13/2013 [facility] CHEM PANEL CO2 30 24 - 32 09/13/2013 [facility] CHEM PANEL Chloride Lvl 101 95 - 109 09/13/2013 [facility] CHEM PANEL Potassium Lvl See N [...] is hemolyzed notified CHASE at 09/12/2013 22:42. [facility] CHEM PANEL Sodium Lvl 136 135 - 145 09/13/2013 [facility] CHEM PANEL B/C Ratio See N ote 5 (09/12/13 9:45 PM) 6 - 25 09/13/2013 <sup>5</sup>Result Comment: BUN/Cre is 110. Result may not be accurate. Redraw is recommended due to sample is hemolyzed. Notified Karen Haley at 09/12/2013 22:42 [facility] CHEM PANEL eGFR See N ote 4 (09/12/13 9:45 PM) 09/13/2013 <sup>4</sup>Result Comment: The eGFR result of 889 should be interpreted with caution due to Hemolyzed Sample. Report called to Silas Haley by CV at 09/12/2013 22:58. Recollection is recommended. Read Back Ok. [facility] HEMATOLOGY Retic Auto 1.1 0.5 - 1.5 09/13/2013 [facility] HEMATOLOGY Lymphocytes # 1.7 1.0 - 5.5 09/13/2013 [facility] HEMATOLOGY Basophils # 0.0 0.0 - 0.2 09/13/2013 [facility] HEMATOLOGY Eosinophils # 0.3 0.0 - 0.5 09/13/2013 [facility] HEMATOLOGY Monocytes # 0.3 0.0 - 0.8 09/13/2013 [facility] HEMATOLOGY Lymphocytes 37.3 20.0 - 40.0 09/13/2013 [facility] Segs 48.8 45.0 - 75.0 09/13/2013 [facility] Plt Morph Ashlee l (09/12/13 9:45 PM) 09/13/2013 [facility] RBC Morph Ashlee l (09/12/13 9:45 PM) 09/13/2013 [facility] Segs-Bands # 2.3 1.5 - 8.1 09/13/2013 [facility] Basophils 0.8 0.0 - 1.0 09/13/2013 [facility] Eosinophils 7.1 0.0 - 4.0 09/13/2013 [facility] Monocytes 6.0 2.0 - 12.0 09/13/2013 [facility] PTT 30.3 22.9 - 35.8 09/13/2013 <sup>9</sup>Interpretive Data: Heparin T herapeutic Range: 57 - 92 Seconds [facility] INR 0.96 0.85 - 1.17 09/13/2013 <sup>8</sup>Interpretive Data: RECOMMEND ED RANGES FOR PROTIME INR:
2.0-3.0 for most medical and surgical thromboembolic states.
2.5-3.5 for artificial heart valves and recurrent embolism.

INR SHOULD BE USED ONLY FOR PATIENTS ON STABLE ANTICOAGULANT THERAPY. [facility] PT 12.7 12.0 - 14.7 09/13/2013 [facility] MPV 10.5 7.4 - 10.4 09/13/2013 [facility] Platelet 302 133 - 450 09/13/2013 [facility] RDW 14.4 11.5 - 14.5 09/13/2013 [facility] MCH 31.8 27.0 - 31.0 09/13/2013 [facility] MCV 96.0 81.0 - 99.0 09/13/2013 [facility] Hct 35.2 36.0 - 48.0 09/13/2013 [facility] WBC 4.7 3.7 - 10.4 09/13/2013 [facility] MCHC 33.1 32.0 - 36.0 09/13/2013 [facility] RBC 3.66 4.20 - 5.40 09/13/2013 [facility] Hgb 11.6 12.0 - 16.0 09/13/2013 [facility] URINE AND STOOL UA Urobilinogen <=1.0 mg/dL 0.1 - 1.0 09/12/2013 [facility] URINE AND STOOL UA Color Ltyellow 09/12/2013 [facility] URINE AND STOOL UA Turbidity Clear (09/12/13 5:35 PM) Clear 09/12/2013 [facility] URINE AND STOOL UA Spec Grav 1.006 <=1.030 09/12/2013 [facility] URINE AND STOOL UA Bili Negative *NA* (09/12/13 5:35 PM) Negative 09/12/2013 [facility] URINE AND STOOL UA Ketones Negative mg/dL Negative mg/dL 09/12/2013 [facility] URINE AND STOOL UA Sq Epi Occasional /LPF Few /LPF 09/12/2013 [facility] URINE AND STOOL UA Leuk Est Large *ABN* (09/12/13 5:35 PM) Negative 09/12/2013 [facility] URINE AND STOOL UA RBC <1 0 - 2 09/12/2013 [facility] URINE AND STOOL UA Glucose Negative mg/dL Negative mg/dL 09/12/2013 [facility] URINE AND STOOL UA Protein Negative mg/dL Negative mg/dL 09/12/2013 [facility] URINE AND STOOL UA pH 7.0 5.0 - 8.0 09/12/2013 [facility] URINE AND STOOL UA Nitrite Negative (09/12/13 5:35 PM) Negative 09/12/2013 [facility] URINE AND STOOL UA Blood Negative (09/12/13 5:35 PM) Negative 09/12/2013 [facility] URINE AND STOOL UA WBC 29 0 - 5 09/12/2013 [facility] URINE CHEM U Preg Negat jose maria (09/12/13 5:35 PM) Negative 09/12/2013 [facility] CHEM PANEL B/C Ratio 8 6 - 25 09/10/2013 [facility] CHEM PANEL Globulin 2.4 2.0 - 4.0 09/10/2013 [facility] CHEM PANEL A/G Ratio 1.2 0.7 - 1.6 09/10/2013 [facility] CHEM PANEL eGFR 117 09/10/2013 <sup>1</sup>Result [...] PANEL AGAP 10.7 10.0 - 20.0 09/10/2013 [facility] CHEM PANEL Alk Phos 199 39 [...] values reflect the clinical guidelines
of the [employer]. [facility] CHEM PANEL BUN 5 7 - 22 09/10/2013 [facility] CHEM PANEL Bili Direct <0.1 0.0 - 0.3 09/10/2013 [facility] CHEM PANEL Alk Phos 224 39 - 136 09/08/2013 [facility] CHEM PANEL AST 42 0 - 37 09/08/2013 [facility] CHEM PANEL ALT 136 0 - 65 09/08/2013 [facility] CHEM PANEL Bili Direct <0.1 0.0 - 0.3 09/08/2013 [facility] CHEM PANEL Bili Total 0.1 0.2 - 1.3 09/08/2013 [facility] CHEM PANEL Bili Indirect >0.0 0.0 - 1.0 09/08/2013 [facility] CHEM PANEL A/G Ratio 1.2 0.7 - 1.6 09/08/2013 [facility] CHEM PANEL Globulin 2.6 2.0 - 4.0 09/08/2013 [facility] CHEM PANEL Albumin Lvl 3.0 3.5 - 5.0 09/08/2013 [facility] CHEM PANEL Total Protein 5.6 6.4 - 8.4 09/08/2013 [facility] CHEM PANEL Alk Phos 268 39 - 136 09/07/2013 [facility] CHEM PANEL AST 31 0 - 37 09/07/2013 [facility] CHEM PANEL ALT 177 0 - 65 09/07/2013 [facility] CHEM PANEL Globulin 2.9 2.0 - 4.0 09/07/2013 [facility] CHEM PANEL A/G Ratio 1.2 0.7 - 1.6 09/07/2013 [facility] CHEM PANEL Bili Indirect >0.1 0.0 - 1.0 09/07/2013 [facility] CHEM PANEL Bili Total 0.2 0.2 - 1.3 09/07/2013 [facility] CHEM PANEL Bili Direct <0.1 0.0 - 0.3 09/07/2013 [facility] CHEM PANEL Total Protein 6.4 6.4 - 8.4 09/07/2013 [facility] CHEM PANEL Albumin Lvl 3.5 3.5 - 5.0 09/07/2013 [facility] CHEM PANEL Bili Indirect >0.2 0.0 - 1.0 09/06/2013 [facility] CHEM PANEL eGFR 117 09/04/2013 <sup>2</sup>Result [...] Sodium Lvl 141 135 - 145 09/04/2013 [facility] CHEM PANEL Glucose Lvl 73 70 - 99 09/04/2013 <sup>5</sup>Interpretive Data: Adult ref erence range values reflect the clinical guidelines
of the [employer]. [facility] CHEM PANEL BUN 3 7 - 22 09/04/2013 [facility] CHEM PANEL Creatinine Lvl 0.6 0.5 - 1.4 09/04/2013 [facility] CHEM PANEL AGAP 11.1 10.0 - 20.0 09/04/2013 [facility] CHEM PANEL B/C Ratio 5 6 - 25 09/04/2013 [facility] CHEM PANEL Calcium Lvl 8.1 8.5 - 10.5 09/04/2013 [facility] CHEM PANEL Potassium Lvl 4.1 3.5 - 5.1 09/04/2013 [facility] CHEM PANEL CO2 25 24 - 32 09/04/2013 [facility] CHEM PANEL Chloride Lvl 109 95 - 109 09/04/2013 [facility] CHEM PANEL HSV 1 IgM NEGATIVE 09/04/2013 [facility] CHEM PANEL HSV 2 IgM NEGATIVE [...] its performance
characteristics have been determined by [employer]. Performance characteristics refer to
the analytical performance of the test.
Test Performed at:
[facility] [employer]
[address] [place] [address] Deni Meng MD [facility] CMV IgM 0.1 09/04/2013 <sup>10</sup>Interpretive Data: Reference Ranges:
Non-reactive: <0.9 S/CO Ratio
Indeterminate: 0.9 - 1.0 S/CO Ratio
Reactive: >=1.1 S/CO Ratio [facility] A-1-AT 129 83 - 199 09/04/2013 [facility] AMA Ab Scr Negat jose maria (09/04/13 5:28 AM) Negative 09/04/2013 [facility] SMA Screen Negat jose maria (09/04/13 5:28 AM) Negative 09/04/2013 [facility] LIVER KIDNEY MICROSOME AB S. <20.0 [...] with
hepatitis C infection.
Test Performed at:
[facility]
[id number] [facility]
[place] [address] Néstor Gomez MD, PhD [facility] Ceruloplasmin 22 20 - 60 09/04/2013 [facility] CHEM PANEL eGFR 117 09/03/2013 <sup>3</sup>Result [...] should be multiplied by the estimated BMI. [facility] CHEM PANEL Chloride Lvl 112 95 - 109 09/03/2013 [facility] CHEM PANEL CO2 27 24 - 32 09/03/2013 [facility] CHEM PANEL Calcium Lvl 8.1 8.5 - 10.5 09/03/2013 [facility] CHEM PANEL BUN 6 7 - 22 09/03/2013 [facility] CHEM PANEL Sodium Lvl 141 135 - 145 09/03/2013 [facility] CHEM PANEL Creatinine Lvl 0.6 0.5 - 1.4 09/03/2013 [facility] CHEM PANEL Potassium Lvl 4.0 3.5 - 5.1 09/03/2013 [facility] CHEM PANEL Glucose Lvl 61 70 - 99 09/03/2013 <sup>6</sup>Interpretive Data: Adult ref erence range values reflect the clinical guidelines
of the [employer]. [facility] CHEM PANEL AGAP 6.0 10.0 - 20.0 09/03/2013 [facility] CHEM PANEL B/C Ratio 10 6 - 25 09/03/2013 [facility] HEMATOLOGY Anisocyte 1+ *ABN* (09/03/13 6:34 AM) None Seen 09/03/2013 [facility] HEMATOLOGY Elliptocyte Sligh t *ABN* (09/03/13 6:34 AM) None Seen 09/03/2013 [facility] HEMATOLOGY Basophils # 0.0 0.0 - 0.2 09/03/2013 [facility] HEMATOLOGY Eosinophils # 0.2 0.0 - 0.5 09/03/2013 [facility] Monocytes # 0.2 0.0 - 0.8 09/03/2013 [facility] Eosinophils 6.3 0.0 - 4.0 09/03/2013 [facility] Basophils 1.0 0.0 - 1.0 09/03/2013 [facility] HEMATOLOGY Lymphocytes # 2.2 1.0 - 5.5 09/03/2013 [facility] HEMATOLOGY Segs-Bands # 0.7 1.5 - 8.1 09/03/2013 [facility] HEMATOLOGY Lymphocytes 64.7 20.0 - 40.0 09/03/2013 [facility] HEMATOLOGY Monocytes 5.8 2.0 - 12.0 09/03/2013 [facility] HEMATOLOGY Plt Morph Ashlee l (09/03/13 6:34 AM) 09/03/2013 [facility] HEMATOLOGY Segs 22.2 45.0 - 75.0 09/03/2013 [facility] HEMATOLOGY MPV 10.2 7.4 - 10.4 09/03/2013 [facility] HEMATOLOGY RBC 2.94 4.20 - 5.40 09/03/2013 [facility] HEMATOLOGY Hgb 9.6 12.0 - 16.0 09/03/2013 [facility] Hct 28.0 36.0 - 48.0 09/03/2013 [facility] MCV 95.2 81.0 - 99.0 09/03/2013 [facility] MCH 32.5 27.0 - 31.0 09/03/2013 [facility] MCHC 34.2 32.0 - 36.0 09/03/2013 [facility] Platelet 195 133 - 450 09/03/2013 [facility] HEMATOLOGY RDW 14.2 11.5 - 14.5 09/03/2013 [facility] HEMATOLOGY WBC 3.4 3.7 - 10.4 09/03/2013 [facility] IMMUNOLOGY Hep B Core IgM Negat jose maria *NA* (09/03/13 6:34 AM) Negative 09/03/2013 [facility] IMMUNOLOGY Hep A IgM Negat jose maria *NA* (09/03/13 6:34 AM) Negative 09/03/2013 [facility] IMMUNOLOGY Hep Bs Ag Negat jose maria *NA* (09/03/13 6:34 AM) Negative 09/03/2013 [facility] IMMUNOLOGY Hep C Ab Negat jose maria *NA* (09/03/13 6:34 AM) Negative 09/03/2013 [facility] IMMUNOLOGY MARVIN Negat jose maria (09/03/13 6:34 AM) Negative 09/03/2013 [facility] CHEM PANEL Lipase Lvl 170 73 - 393 09/02/2013 <sup>8</sup>Result Comment: Collection d ate/time has been modified to: 00:53:00. Previous collection date/time: 00:53:00. [facility] CHEM PANEL Amylase Lvl 54 25 - 115 09/02/2013 <sup>7</sup>Result Comment: Collection d ate/time has been modified to: 00:53:00. Previous collection date/time: 00:53:00. [facility] HEMATOLOGY Segs 33.4 45.0 - 75.0 09/02/2013 <sup>22</sup>Result Comment: Collection date/time has been modified to: 00:53:00. Previous collection date/time: 00:53:00. [facility] HEMATOLOGY Monocytes 8.5 2.0 - 12.0 09/02/2013 <sup>24</sup>Result Comment: Collection date/time has been modified to: 00:53:00. Previous collection date/time: 00:53:00. [facility] HEMATOLOGY Lymphocytes 54.8 20.0 - 40.0 09/02/2013 <sup>23</sup>Result Comment: Collection date/time has been modified to: 00:53:00. Previous collection date/time: 00:53:00. [facility] HEMATOLOGY Eosinophils # 0.1 0.0 - 0.5 09/02/2013 <sup>30</sup>Result Comment: Collection date/time has been modified to: 00:53:00. Previous collection date/time: 00:53:00. [facility] HEMATOLOGY Basophils # 0.0 0.0 - 0.2 09/02/2013 <sup>31</sup>Result Comment: Collection date/time has been modified to: 00:53:00. Previous collection date/time: 00:53:00. [facility] HEMATOLOGY Segs-Bands # 1.7 1.5 - 8.1 09/02/2013 <sup>27</sup>Result Comment: Collection date/time has been modified to: 00:53:00. Previous collection date/time: 00:53:00. [facility] Monocytes # 0.4 0.0 - 0.8 09/02/2013 <sup>29</sup>Result Comment: Collection date/time has been modified to: 00:53:00. Previous collection date/time: 00:53:00. [facility] Basophils 0.5 0.0 - 1.0 09/02/2013 <sup>26</sup>Result Comment: Collection date/time has been modified to: 00:53:00. Previous collection date/time: 00:53:00. [facility] Lymphocytes # 2.8 1.0 - 5.5 09/02/2013 <sup>28</sup>Result Comment: Collection date/time has been modified to: 00:53:00. Previous collection date/time: 00:53:00. [facility] Eosinophils 2.8 0.0 - 4.0 09/02/2013 <sup>25</sup>Result Comment: Collection date/time has been modified to: 00:53:00. Previous collection date/time: 00:53:00. [facility] MPV 10.2 7.4 - 10.4 09/02/2013 <sup>21</sup>Result Comment: Collection date/time has been modified to: 00:53:00. Previous collection date/time: 00:53:00. [facility] Platelet 288 133 - 450 09/02/2013 <sup>20</sup>Result Comment: Collection date/time has been modified to: 00:53:00. Previous collection date/time: 00:53:00. [facility] RBC 3.93 4.20 - 5.40 09/02/2013 <sup>13</sup>Result Comment: Collection date/time has been modified to: 00:53:00. Previous collection date/time: 00:53:00. [facility] Hgb 12.5 12.0 - 16.0 09/02/2013 <sup>14</sup>Result Comment: Collection date/time has been modified to: 00:53:00. Previous collection date/time: 00:53:00. [facility] WBC 5.0 3.7 - 10.4 09/02/2013 <sup>12</sup>Result Comment: Collection date/time has been modified to: 00:53:00. Previous collection date/time: 00:53:00. [facility] MCHC 33.7 32.0 - 36.0 09/02/2013 <sup>18</sup>Result Comment: Collection date/time has been modified to: 00:53:00. Previous collection date/time: 00:53:00. [facility] MCH 31.9 27.0 - 31.0 09/02/2013 <sup>17</sup>Result Comment: Collection date/time has been modified to: 00:53:00. Previous collection date/time: 00:53:00. [facility] RDW 14.0 11.5 - 14.5 09/02/2013 <sup>19</sup>Result Comment: Collection date/time has been modified to: 00:53:00. Previous collection date/time: 00:53:00. [facility] MCV 94.6 81.0 - 99.0 09/02/2013 <sup>16</sup>Result Comment: Collection date/time has been modified to: 00:53:00. Previous collection date/time: 00:53:00. [facility] Hct 37.2 36.0 - 48.0 09/02/2013 <sup>15</sup>Result Comment: Collection date/time has been modified to: 00:53:00. Previous collection date/time: 00:53:00. [facility] URINE AND STOOL UA Sq Epi Occasional /LPF Few /LPF 09/02/2013 [facility] URINE AND STOOL UA Leuk Est Small *ABN* (09/01/13 11:24 PM) Negative 09/02/2013 [facility] URINE AND STOOL UA Blood Negative (09/01/13 11:24 PM) Negative 09/02/2013 [facility] URINE AND STOOL UA Bili Negative *NA* (09/01/13 11:24 PM) Negative 09/02/2013 [facility] URINE AND STOOL UA Ketones Negative mg/dL Negative mg/dL 09/02/2013 [facility] URINE AND STOOL UA pH 5.0 5.0 - 8.0 09/02/2013 [facility] URINE AND STOOL UA Nitrite Negative (09/01/13 11:24 PM) Negative 09/02/2013 [facility] URINE AND STOOL UA Protein Negative mg/dL Negative mg/dL 09/02/2013 [facility] URINE AND STOOL UA Glucose Negative mg/dL Negative mg/dL 09/02/2013 [facility] URINE AND STOOL UA WBC 8 0 - 5 09/02/2013 [facility] URINE AND STOOL UA RBC <1 0 - 2 09/02/2013 [facility] URINE AND STOOL UA Color Ltyellow 09/02/2013 [facility] URINE AND STOOL UA Urobilinogen <=1.0 mg/dL 0.1 - 1.0 09/02/2013 [facility] URINE AND STOOL UA Spec Grav 1.020 <=1.030 09/02/2013 [facility] URINE AND STOOL UA Turbidity Clear (09/01/13 11:24 PM) Clear 09/02/2013 [facility] URINE CHEM U Preg Negat jose maria (09/01/13 11:24 PM) Negative 09/02/2013 [facility] CHEM PANEL Calcium Lvl 8.9 8.5 - 10.5 09/01/2013 [facility] CHEM PANEL Bili Total 0.1 0.2 - 1.3 09/01/2013 [facility] CHEM PANEL eGFR 111 09/01/2013 <sup>1</sup>Result [...] should be multiplied by the estimated BMI. [facility] CHEM PANEL AST 219 0 - 37 09/01/2013 [facility] CHEM PANEL Total Protein 6.9 6.4 - 8.4 09/01/2013 [facility] CHEM PANEL CO2 25 24 - 32 09/01/2013 [facility] CHEM PANEL Chloride Lvl 105 95 - 109 09/01/2013 [facility] CHEM PANEL Creatinine Lvl 0.7 0.5 - 1.4 09/01/2013 [facility] CHEM PANEL Sodium Lvl 139 135 - 145 09/01/2013 [facility] CHEM PANEL Potassium Lvl 3.4 3.5 - 5.1 09/01/2013 [facility] CHEM PANEL BUN 12 7 - 22 09/01/2013 [facility] CHEM PANEL ALT 535 0 - 65 09/01/2013 [facility] CHEM PANEL Glucose Lvl 95 70 - 99 09/01/2013 <sup>2</sup>Interpretive Data: Adult ref erence range values reflect the clinical guidelines
of the [employer]. [facility] CHEM PANEL Albumin Lvl 3.8 3.5 - 5.0 09/01/2013 [facility] CHEM PANEL Alk Phos 314 39 - 136 09/01/2013 [facility] CHEM PANEL B/C Ratio 17 6 - 25 09/01/2013 [facility] CHEM PANEL A/G Ratio 1.2 0.7 - 1.6 09/01/2013 [facility] CHEM PANEL Globulin 3.1 2.0 - 4.0 09/01/2013 [facility] CHEM PANEL AGAP 12.4 10.0 - 20.0 09/01/2013 [facility] HEMATOLOGY Eosinophils # 0.2 0.0 - 0.5 09/01/2013 [facility] HEMATOLOGY Basophils # 0.0 0.0 - 0.2 09/01/2013 [facility] HEMATOLOGY Basophils 0.7 0.0 - 1.0 09/01/2013 [facility] HEMATOLOGY Lymphocytes # 2.1 1.0 - 5.5 09/01/2013 [facility] HEMATOLOGY Segs-Bands # 0.5 1.5 - 8.1 09/01/2013 [facility] HEMATOLOGY Monocytes # 0.2 0.0 - 0.8 09/01/2013 [facility] HEMATOLOGY Lymphocytes 66.6 20.0 - 40.0 09/01/2013 [facility] HEMATOLOGY Segs 16.9 45.0 - 75.0 09/01/2013 [facility] HEMATOLOGY Monocytes 8.1 2.0 - 12.0 09/01/2013 [facility] HEMATOLOGY Eosinophils 7.7 0.0 - 4.0 09/01/2013 [facility] MCHC 33.6 32.0 - 36.0 09/01/2013 [facility] MCH 31.7 27.0 - 31.0 09/01/2013 [facility] HEMATOLOGY Platelet 263 133 - 450 09/01/2013 [facility] HEMATOLOGY RDW 13.7 11.5 - 14.5 09/01/2013 [facility] HEMATOLOGY Hgb 11.4 12.0 - 16.0 09/01/2013 [facility] HEMATOLOGY RBC 3.58 4.20 - 5.40 09/01/2013 [facility] Hct 33.8 36.0 - 48.0 09/01/2013 [facility] HEMATOLOGY MCV 94.3 81.0 - 99.0 09/01/2013 [facility] HEMATOLOGY MPV 10.1 7.4 - 10.4 09/01/2013 [facility] HEMATOLOGY WBC 3.1 3.7 - 10.4 09/01/2013 [facility] IMMUNOLOGY CDC HIV 4th GEN Negat jose maria (09/01/13 12:53 AM) Negative 09/01/2013 [facility] URINE AND STOOL UA Color Ltyellow 09/01/2013 [facility] URINE AND STOOL UA Urobilinogen <=1.0 mg/dL 0.1 - 1.0 09/01/2013 [facility] URINE AND STOOL UA WBC 1 0 - 5 09/01/2013 [facility] URINE AND STOOL UA RBC 1 0 - 2 09/01/2013 [facility] URINE AND STOOL UA Sq Epi Occasional /LPF Few /LPF 09/01/2013 [facility] URINE AND STOOL UA Glucose Negative mg/dL Negative mg/dL 09/01/2013 [facility] URINE AND STOOL UA Ketones Negative mg/dL Negative mg/dL 09/01/2013 [facility] URINE AND STOOL UA pH 5.0 5.0 - 8.0 09/01/2013 [facility] URINE AND STOOL UA Protein Negative mg/dL Negative mg/dL 09/01/2013 [facility] URINE AND STOOL UA Bili Negative *NA* (08/31/13 11:50 PM) Negative 09/01/2013 [facility] URINE AND STOOL UA Nitrite Negative (08/31/13 11:50 PM) Negative 09/01/2013 [facility] URINE AND STOOL UA Leuk Est Trace *ABN* (08/31/13 11:50 PM) Negative 09/01/2013 [facility] URINE AND STOOL UA Blood Negative (08/31/13 11:50 PM) Negative 09/01/2013 [facility] URINE AND STOOL UA Turbidity Clear (08/31/13 11:50 PM) Clear 09/01/2013 [facility] URINE AND STOOL UA Spec Grav 1.014 <=1.030 09/01/2013 [facility] URINE CHEM U Preg Negat jose maria (08/31/13 11:50 PM) Negative 09/01/2013 [facility] URINALYSIS UA Bacteria Occas ional /HPF None Seen 06/06/2013 [facility] URINALYSIS UA RBC 1 0 - 2 06/06/2013 Normal [facility] URINALYSIS UA Urobilinogen <=1.0 mg/dL 0.1 - 1.0 06/06/2013 [facility] URINALYSIS UA Color Ltyellow 06/06/2013 [facility] URINALYSIS UA Turbidity Clear (06/05/2013 20:57:00) Clear 06/06/2013 Normal [facility] URINALYSIS UA Spec Grav 1.005 <=1.030 06/06/2013 Normal [facility] URINALYSIS UA pH 7.0 5.0 - 8.0 06/06/2013 Normal [facility] URINALYSIS UA Protein Negat jose maria [...] *ABN* (06/05/2013 20:57:00) Negati ve 06/06/2013 ABN [facility] URINALYSIS UA Sq Epi Occas ional /LPF Few 06/06/2013 [facility] VIRAL - SEROLOGY Influ A Negative (06/05/2013 20:41:00) Negati ve 06/06/2013 Normal [facility] VIRAL - SEROLOGY Influ B Negative [...] either viral culture or PCR is warranted. [facility] CHEMISTRY Magnesium Lvl 2.0 1.8 - 2.4 06/06/2013 Normal [facility] CHEMISTRY eGFR 94 06/06/2013 <sup>2</sup>Result Comment: [...] should be multiplied by the estimated BMI. [facility] CHEMISTRY ASPARTATE TRANSAMINASE 18 0 - 37 06/06/2013 Normal [facility] CHEMISTRY Potassium Lvl 3.6 3.5 - 5.1 06/06/2013 Normal [facility] CHEMISTRY CO2 30 24 - 32 06/06/2013 Normal [facility] CHEMISTRY Chloride Lvl 106 95 - 109 06/06/2013 Normal [facility] CHEMISTRY ALANINE AMINOTRANSFERASE 5 2 0 - 65 06/06/2013 Normal [facility] CHEMISTRY Albumin Lvl 3.9 3.5 - 5.0 06/06/2013 Normal [facility] CHEMISTRY Calcium Lvl 8.7 8.5 - 10.5 06/06/2013 Normal [facility] CHEMISTRY Sodium Lvl 142 135 - 145 06/06/2013 Normal [facility] CHEMISTRY Creatinine Lvl 0.8 0.5 - 1.4 06/06/2013 Normal [facility] CHEMISTRY Glucose Lvl 106 70 - 99 06/06/2013 [facility] <sup>3</sup>Interpretive Data: Adult ref erence range values reflect the clinical guidelines
of the [employer]. [facility] CHEMISTRY BUN 15 7 - 22 06/06/2013 Normal [facility] CHEMISTRY Alk Phos 139 39 - 136 06/06/2013 HI [facility] CHEMISTRY Bili Total 0.2 0.2 - 1.3 06/06/2013 Normal [facility] CHEMISTRY Total Protein 7.3 6.4 - 8.4 06/06/2013 Normal [facility] CHEMISTRY B/C Ratio 19 6 - 25 06/06/2013 Normal [facility] CHEMISTRY AGAP 9.6 10.0 - 20.0 06/06/2013 LOW [facility] CHEMISTRY Globulin 3.4 2.0 - 4.0 06/06/2013 Normal [facility] CHEMISTRY A/G Ratio 1.1 0.7 - 1.6 06/06/2013 Normal [facility] HEMATOLOGY Sed Rate 25 0 - 20 06/06/2013 HI [facility] HEMATOLOGY MCV 94.2 81.0 - 99.0 06/06/2013 Normal [facility] HEMATOLOGY MCHC 32.7 32.0 - 36.0 06/06/2013 Normal [facility] HEMATOLOGY MCH 30.8 27.0 - 31.0 06/06/2013 Normal [facility] HEMATOLOGY RDW 14.2 11.5 - 14.5 06/06/2013 Normal [facility] HEMATOLOGY MPV 9.0 7.4 - 10.4 06/06/2013 Normal [facility] HEMATOLOGY Platelet 317 133 - 450 06/06/2013 Normal [facility] HEMATOLOGY Hgb 12.0 12.0 - 16.0 06/06/2013 Normal [facility] HEMATOLOGY Hct 36.7 36.0 - 48.0 06/06/2013 Normal [facility] HEMATOLOGY RBC X 10x6 3.89 4.20 - 5.40 06/06/2013 LOW [facility] HEMATOLOGY WBC X 10x3 4.2 3.7 - 10.4 06/06/2013 Normal [facility] HEMATOLOGY Lymphocytes # 1.9 1.0 - 5.5 06/06/2013 Normal [facility] HEMATOLOGY Basophils # 0.0 0.0 - 0.2 06/06/2013 Normal [facility] HEMATOLOGY Monocytes # 0.3 0.0 - 0.8 06/06/2013 Normal [facility] HEMATOLOGY Segs 43.2 45.0 - 75.0 06/06/2013 [facility] HEMATOLOGY Eosinophils 2.4 0.0 - 4.0 06/06/2013 Normal [facility] HEMATOLOGY Eosinophils # 0.1 0.0 - 0.5 06/06/2013 Normal [facility] HEMATOLOGY Segs-Bands # 1.8 1.5 - 8.1 06/06/2013 Normal [facility] HEMATOLOGY Basophils 0.7 0.0 - 1.0 06/06/2013 Normal [facility] HEMATOLOGY Monocytes 6.8 2.0 - 12.0 06/06/2013 Normal [facility] HEMATOLOGY Lymphocytes 46.9 20.0 - 40.0 06/06/2013 [facility] CHEMISTRY CK MB Index <0.6 0.0 - 2.5 02/12/2013 Normal [facility] CHEMISTRY Troponin-I <0.02 0.00 - 0.40 02/12/2013 Normal [facility] CHEMISTRY CK MB <0.5 0.5 - 3.6 02/12/2013 Normal [facility] CHEMISTRY Total CK 88 12 - 191 02/12/2013 Normal [facility] CHEMISTRY CK MB Index <0.6 0.0 - 2.5 02/12/2013 Normal [facility] CHEMISTRY Troponin-I <0.02 0.00 - 0.40 02/12/2013 Normal [facility] CHEMISTRY Total CK 86 12 - 191 02/12/2013 Normal [facility] CHEMISTRY CK MB <0.5 0.5 - 3.6 02/12/2013 Normal [facility] CHEMISTRY eGFR 94 02/12/2013 NA <sup>1</sup>Result [...] should be multiplied by the estimated BMI. [facility] CHEMISTRY Globulin 3.3 2.0 - 4.0 02/12/2013 Normal [facility] CHEMISTRY A/G Ratio 1.3 0.7 - 1.6 02/12/2013 Normal [facility] CHEMISTRY B/C Ratio 15 6 - 25 02/12/2013 Normal [facility] CHEMISTRY AGAP 12.8 10.0 - 20.0 02/12/2013 Normal [facility] CHEMISTRY Alk Phos 152 39 - 136 02/12/2013 HI [facility] CHEMISTRY Bili Total 0.3 0.2 - 1.3 02/12/2013 Normal [facility] CHEMISTRY AST 14 0 - 37 02/12/2013 Normal [facility] CHEMISTRY Creatinine Lvl 0.8 0.5 - 1.4 02/12/2013 Normal [facility] CHEMISTRY Glucose Lvl 81 70 - 99 02/12/2013 Normal <sup>2</sup>Interpretive Data: Adult ref erence range values reflect the clinical guidelines
of the [employer]. [facility] CHEMISTRY BUN 12 7 - 22 02/12/2013 Normal [facility] CHEMISTRY Total Protein 7.6 6.4 - 8.4 02/12/2013 Normal [facility] CHEMISTRY Albumin Lvl 4.3 3.5 - 5.0 02/12/2013 Normal [facility] CHEMISTRY CO2 28 24 - 32 02/12/2013 Normal [facility] CHEMISTRY Calcium Lvl 9.8 8.5 - 10.5 02/12/2013 Normal [facility] CHEMISTRY ALT 50 0 - 65 02/12/2013 Normal [facility] CHEMISTRY Chloride Lvl 106 95 - 109 02/12/2013 Normal [facility] CHEMISTRY Sodium Lvl 143 135 - 145 02/12/2013 Normal [facility] CHEMISTRY Potassium Lvl 3.8 3.5 - 5.1 02/12/2013 Normal [facility] HEMATOLOGY Basophils # 0.0 0.0 - 0.2 02/12/2013 Normal [facility] HEMATOLOGY Eosinophils # 0.1 0.0 - 0.5 02/12/2013 Normal [facility] HEMATOLOGY Eosinophils 2.2 0.0 - 4.0 02/12/2013 Normal [facility] HEMATOLOGY Lymphocytes # 1.9 1.0 - 5.5 02/12/2013 Normal [facility] HEMATOLOGY Monocytes # 0.3 0.0 - 0.8 02/12/2013 Normal [facility] HEMATOLOGY Monocytes 7.1 2.0 - 12.0 02/12/2013 Normal [facility] HEMATOLOGY Basophils 0.6 0.0 - 1.0 02/12/2013 Normal [facility] HEMATOLOGY Segs-Bands # 1.9 1.5 - 8.1 02/12/2013 Normal [facility] HEMATOLOGY Lymphocytes 44.8 20.0 - 40.0 02/12/2013 [facility] HEMATOLOGY Segs 45.3 45.0 - 75.0 02/12/2013 Normal [facility] HEMATOLOGY MCHC 32.6 32.0 - 36.0 02/12/2013 Normal [facility] HEMATOLOGY MCH 31.0 27.0 - 31.0 02/12/2013 Normal [facility] HEMATOLOGY RDW 14.3 11.5 - 14.5 02/12/2013 Normal [facility] HEMATOLOGY Platelet 324 133 - 450 02/12/2013 Normal [facility] HEMATOLOGY MPV 10.0 7.4 - 10.4 02/12/2013 Normal [facility] HEMATOLOGY WBC 4.3 3.7 - 10.4 02/12/2013 Normal [facility] HEMATOLOGY Hgb 12.5 12.0 - 16.0 02/12/2013 Normal [facility] HEMATOLOGY Hct 38.2 36.0 - 48.0 02/12/2013 Normal [facility] HEMATOLOGY MCV 95.1 81.0 - 99.0 02/12/2013 Normal [facility] HEMATOLOGY RBC 4.02 4.20 - 5.40 02/12/2013 LOW [facility] URINALYSIS UA Color Ltyellow 02/12/2013 NA [facility] URINALYSIS UA Urobilinogen 0.1 - 1.0 02/12/2013 NA [facility] URINALYSIS UA Sq Epi Occas ional /LPF *NA* (02/11/2013 20:54:00) Few 02/12/2013 [facility] URINALYSIS UA Bacteria Few / HPF *NA* (02/11/2013 20:54:00) None S een 02/12/2013 [facility] URINALYSIS UA WBC 7 0 [...] maria (02/11/2013 20:54:00) Negati ve 02/12/2013 Normal [facility] URINALYSIS UA Leuk Est Large *ABN* (02/11/2013 20:54:00) Negati ve 02/12/2013 ABN [facility] URINALYSIS UA Nitrite Negat jose maria (02/11/2013 20:54:00) Negati ve 02/12/2013 Normal [facility] URINALYSIS UA Protein Negat jose maria mg/dL (02/11/2013 20:54:00) Negati ve 02/12/2013 Normal [facility] URINALYSIS UA Turbidity Clear (02/11/2013 20:54:00) Clear 02/12/2013 Normal [facility] URINALYSIS UA pH 5.0 5.0 - 8.0 02/12/2013 Normal [facility] URINALYSIS UA RBC 0-2 / HPF (09/28/2012 00:45:00) 0 - 2 09/28/2012 Normal [facility] URINALYSIS Micro? Perfo rmed (09/28/2012 00:45:00) 09/28/2012 Normal [facility] URINALYSIS UA Leuk Est Small *ABN* (09/28/2012 00:45:00) Negati ve 09/28/2012 ABN [facility] URINALYSIS UA Bacteria Few / HPF (09/28/2012 00:45:00) None S een 09/28/2012 Normal [facility] URINALYSIS UA WBC 6-10 /HPF *ABN* (09/28/2012 00:45:00) None S een 09/28/2012 ABN [facility] URINALYSIS UA Sq Epi Few / LPF (09/28/2012 00:45:00) Few 09/28/2012 Normal [facility] URINALYSIS UA Protein Negat jose maria (09/28/2012 00:45:00) Negati ve 09/28/2012 Normal [facility] URINALYSIS UA Urobilinogen 0.2 0.1 - 1.0 09/28/2012 Normal [facility] URINALYSIS UA Blood Negat jose maria (09/28/2012 00:45:00) Negati ve 09/28/2012 Normal [facility] URINALYSIS UA Nitrite Negat jose maria (09/28/2012 00:45:00) Negati ve 09/28/2012 Normal [facility] URINALYSIS UA Ketones Negat jose maria *NA* (09/28/2012 00:45:00) Negati ve 09/28/2012 NA [facility] URINALYSIS UA pH 6.0 5.0 - 8.0 09/28/2012 Normal [facility] URINALYSIS UA Bili Negat jose maria *NA* (09/28/2012 00:45:00) Negati ve 09/28/2012 NA [facility] URINALYSIS UA Mucus Moder ate /LPF *ABN* (09/28/2012 00:45:00) None S een 09/28/2012 ABN [facility] URINALYSIS UA Glucose Negat jose maria (09/28/2012 00:45:00) Negati ve 09/28/2012 Normal [facility] URINALYSIS UA Spec Grav 1.020 <=1.030 09/28/2012 Normal [facility] URINALYSIS UA Turbidity Sligh t Cloudy (09/28/2012 00:45:00) Clear 09/28/2012 Normal [facility] URINALYSIS UA Color Yello w *NA* (09/28/2012 00:45:00) Yellow 09/28/2012 NA [facility] CHEMISTRY Phosphorus 4.3 2.5 - 4.5 09/28/2012 Normal [facility] CHEMISTRY Magnesium Lvl 1.7 1.8 - 2.4 09/28/2012 LOW [facility] CHEMISTRY eGFR 95 09/28/2012 NA <sup>1</sup>Result [...] should be multiplied by the estimated BMI. [facility] CHEMISTRY BUN 12 7 - 22 09/28/2012 Normal [facility] CHEMISTRY Glucose Lvl 94 70 - 99 09/28/2012 Normal <sup>2</sup>Interpretive Data: Adult ref erence range values reflect the clinical guidelines
of the [employer]. [facility] CHEMISTRY CO2 31 24 - 32 09/28/2012 Normal [facility] CHEMISTRY Sodium Lvl 143 135 - 145 09/28/2012 Normal [facility] CHEMISTRY Creatinine Lvl 0.8 0.5 - 1.4 09/28/2012 Normal [facility] CHEMISTRY Chloride Lvl 105 95 - 109 09/28/2012 Normal [facility] CHEMISTRY Potassium Lvl 4.6 3.5 - 5.1 09/28/2012 Normal [facility] CHEMISTRY Calcium Lvl 9.7 8.5 - 10.5 09/28/2012 Normal [facility] CHEMISTRY AGAP 11.6 10.0 - 20.0 09/28/2012 Normal [facility] HEMATOLOGY Basophils # 0.1 0.0 - 0.2 09/28/2012 Normal [facility] HEMATOLOGY Monocytes # 0.3 0.0 - 0.8 09/28/2012 Normal [facility] HEMATOLOGY Eosinophils # 0.1 0.0 - 0.5 09/28/2012 Normal [facility] HEMATOLOGY Monocytes 6.6 2.0 - 12.0 09/28/2012 [facility] HEMATOLOGY Lymphocytes 44.0 20.0 - 40.0 09/28/2012 [facility] HEMATOLOGY Segs 46.4 45.0 - 75.0 09/28/2012 Normal [facility] HEMATOLOGY Lymphocytes # 2.1 1.0 - 5.5 09/28/2012 Normal [facility] HEMATOLOGY Eosinophils 1.3 0.0 - 4.0 09/28/2012 Normal [facility] HEMATOLOGY Basophils 1.7 0.0 - 1.0 09/28/2012 [facility] HEMATOLOGY Segs-Bands # 2.1 1.5 - 8.1 09/28/2012 Normal [facility] HEMATOLOGY MCV 95.6 81.0 - 99.0 09/28/2012 Normal [facility] HEMATOLOGY RBC 3.79 4.20 - 5.40 09/28/2012 LOW [facility] HEMATOLOGY Hgb 12.2 12.0 - 16.0 09/28/2012 Normal [facility] HEMATOLOGY Hct 36.2 36.0 - 48.0 09/28/2012 Normal [facility] HEMATOLOGY WBC 4.7 3.7 - 10.4 09/28/2012 Normal [facility] HEMATOLOGY MPV 9.5 7.4 - 10.4 09/28/2012 Normal [facility] HEMATOLOGY RDW 13.1 11.5 - 14.5 09/28/2012 Normal [facility] HEMATOLOGY Platelet 313 133 - 450 09/28/2012 Normal [facility] HEMATOLOGY MCH 32.1 27.0 - 31.0 09/28/2012 [facility] HEMATOLOGY MCHC 33.6 32.0 - 36.0 09/28/2012 Normal [facility] CHEMISTRY Albumin Lvl 3.7 3.5 - [...] Ratio 1.4 0.7 - 1.6 08/10/2012 Normal [facility] CHEMISTRY Bili Indirect >0.2 0.0 - 1.0 08/10/2012 Normal [facility] HEMATOLOGY Basophils 0.4 0.0 - 1.0 08/10/2012 Normal [facility] HEMATOLOGY Eosinophils # 0.0 0.0 - 0.5 08/10/2012 Normal [facility] HEMATOLOGY Monocytes # 0.4 0.0 - 0.8 08/10/2012 Normal [facility] HEMATOLOGY Basophils # 0.0 0.0 - 0.2 08/10/2012 Normal [facility] HEMATOLOGY Lymphocytes 20.8 20.0 - 40.0 08/10/2012 Normal [facility] HEMATOLOGY Segs 70.5 45.0 - 75.0 08/10/2012 Normal [facility] HEMATOLOGY Segs-Bands # 3.2 1.5 - 8.1 08/10/2012 Normal [facility] HEMATOLOGY Eosinophils 0.1 0.0 - 4.0 08/10/2012 Normal [facility] HEMATOLOGY Lymphocytes # 1.0 1.0 - 5.5 08/10/2012 Normal [facility] HEMATOLOGY Monocytes 8.2 2.0 - 12.0 08/10/2012 Normal [facility] HEMATOLOGY MPV 9.6 7.4 - 10.4 08/10/2012 Normal [facility] HEMATOLOGY Hgb 10.3 12.0 - 16.0 08/10/2012 LOW [facility] HEMATOLOGY RBC 3.27 4.20 - 5.40 08/10/2012 [facility] HEMATOLOGY MCHC 32.6 32.0 - 36.0 08/10/2012 Normal [facility] HEMATOLOGY RDW 12.7 11.5 - 14.5 08/10/2012 Normal [facility] HEMATOLOGY Platelet 216 133 - 450 08/10/2012 Normal [facility] HEMATOLOGY Hct 31.7 36.0 - 48.0 08/10/2012 LOW [facility] HEMATOLOGY MCV 96.9 81.0 - 99.0 08/10/2012 Normal [facility] HEMATOLOGY MCH 31.6 27.0 - 31.0 08/10/2012 HI [facility] HEMATOLOGY WBC 4.6 3.7 - 10.4 08/10/2012 Normal [facility] CHEMISTRY eGFR 112 08/09/2012 NA <sup>1</sup>Result [...] should be multiplied by the estimated BMI. [facility] CHEMISTRY Albumin Lvl 3.2 3.5 - 5.0 08/09/2012 LOW [facility] CHEMISTRY Total Protein 5.5 6.4 - 8.4 08/09/2012 LOW [facility] CHEMISTRY Calcium Lvl 8.4 8.5 - 10.5 08/09/2012 LOW [facility] CHEMISTRY Bili Total 0.4 0.2 - 1.3 08/09/2012 Normal [facility] CHEMISTRY Alk Phos 70 39 - 136 08/09/2012 Normal [facility] CHEMISTRY ALT 22 0 - 65 08/09/2012 Normal [facility] CHEMISTRY AST 6 0 - 37 08/09/2012 Normal [facility] CHEMISTRY Creatinine Lvl 0.7 0.5 - 1.4 08/09/2012 Normal [facility] CHEMISTRY CO2 32 24 - 32 08/09/2012 Normal [facility] CHEMISTRY Glucose Lvl 83 70 - 99 08/09/2012 Normal <sup>3</sup>Interpretive Data: Adult ref erence range values reflect the clinical guidelines
of the [employer]. [facility] CHEMISTRY BUN 2 7 - 22 08/09/2012 LOW [facility] CHEMISTRY Chloride Lvl 106 95 - 109 08/09/2012 Normal [facility] CHEMISTRY Potassium Lvl 3.8 3.5 - 5.1 08/09/2012 Normal [facility] CHEMISTRY Sodium Lvl 145 135 - 145 08/09/2012 Normal [facility] CHEMISTRY B/C Ratio 3 6 - 25 08/09/2012 LOW [facility] CHEMISTRY AGAP 10.8 10.0 - 20.0 08/09/2012 Normal [facility] CHEMISTRY A/G Ratio 1.4 0.7 - 1.6 08/09/2012 Normal [facility] CHEMISTRY Globulin 2.3 2.0 - 4.0 08/09/2012 [facility] CHEMISTRY Lipase Lvl 96 73 - 393 08/09/2012 Normal [facility] CHEMISTRY Amylase Lvl 26 25 - 115 08/09/2012 Normal [facility] HEMATOLOGY MPV 9.1 7.4 - 10.4 08/09/2012 Normal [facility] HEMATOLOGY Platelet 207 133 - 450 08/09/2012 Normal [facility] HEMATOLOGY WBC 3.3 3.7 - 10.4 08/09/2012 LOW [facility] HEMATOLOGY RBC 3.06 4.20 - 5.40 08/09/2012 LOW [facility] HEMATOLOGY Hgb 9.6 12.0 - 16.0 08/09/2012 LOW [facility] HEMATOLOGY RDW 12.7 11.5 - 14.5 08/09/2012 Normal [facility] HEMATOLOGY MCHC 32.4 32.0 - 36.0 08/09/2012 Normal [facility] HEMATOLOGY Hct 29.6 36.0 - 48.0 08/09/2012 LOW [facility] HEMATOLOGY MCV 96.7 81.0 - 99.0 08/09/2012 Normal [facility] HEMATOLOGY MCH 31.3 27.0 - 31.0 08/09/2012 [facility] HEMATOLOGY Basophils # 0.0 0.0 - [...] HEMATOLOGY Lymphocytes 44.5 20.0 - 40.0 08/09/2012 [facility] HEMATOLOGY Monocytes 10.8 2.0 - 12.0 08/09/2012 Normal [facility] HEMATOLOGY Eosinophils 5.3 0.0 - 4.0 08/09/2012 [facility] HEMATOLOGY Segs 38.7 45.0 - 75.0 08/09/2012 [facility] CHEMISTRY U Preg Negati ve (08/08/2012 08:00:36) Negati ve 08/08/2012 Normal [facility] CHEMISTRY Bili Total 0.2 0.2 - 1.3 08/06/2012 Normal [facility] CHEMISTRY AST 14 0 - 37 08/06/2012 Normal [facility] CHEMISTRY Total Protein 7.3 6.4 - 8.4 08/06/2012 Normal [facility] CHEMISTRY CO2 28 24 - 32 08/06/2012 Normal [facility] CHEMISTRY ALT 43 0 - 65 08/06/2012 Normal [facility] CHEMISTRY Alk Phos 95 39 - 136 08/06/2012 Normal [facility] CHEMISTRY eGFR 95 08/06/2012 NA <sup>2</sup>Result [...] should be multiplied by the estimated BMI. [facility] CHEMISTRY Sodium Lvl 146 135 - 145 08/06/2012 HI [facility] CHEMISTRY Creatinine Lvl 0.8 0.5 - 1.4 08/06/2012 Normal [facility] CHEMISTRY BUN 10 7 - 22 08/06/2012 Normal [facility] CHEMISTRY Glucose Lvl 87 70 - 99 08/06/2012 Normal <sup>4</sup>Interpretive Data: Adult ref erence range values reflect the clinical guidelines
of the [employer]. [facility] CHEMISTRY Potassium Lvl 3.5 3.5 - 5.1 08/06/2012 Normal [facility] CHEMISTRY Albumin Lvl 4.2 3.5 - 5.0 08/06/2012 Normal [facility] CHEMISTRY Chloride Lvl 109 95 - 109 08/06/2012 Normal [facility] CHEMISTRY Calcium Lvl 8.9 8.5 - 10.5 08/06/2012 Normal [facility] CHEMISTRY Globulin 3.1 2.0 - 4.0 08/06/2012 Normal [facility] CHEMISTRY A/G Ratio 1.4 0.7 - [...] WBC 4.0 3.7 - 10.4 08/06/2012 Normal [facility] HEMATOLOGY MPV 9.0 7.4 - 10.4 08/06/2012 Normal [facility] HEMATOLOGY Platelet 284 133 - 450 08/06/2012 Normal [facility] HEMATOLOGY RDW 13.2 11.5 - 14.5 08/06/2012 Normal [facility] HEMATOLOGY Hct 35.0 36.0 - 48.0 08/06/2012 LOW [facility] HEMATOLOGY Hgb 11.4 12.0 - 16.0 08/06/2012 LOW [facility] HEMATOLOGY RBC 3.65 4.20 - 5.40 08/06/2012 LOW [facility] HEMATOLOGY MCV 95.8 81.0 - 99.0 08/06/2012 Normal [facility] HEMATOLOGY MCHC 32.6 32.0 - 36.0 08/06/2012 Normal [facility] HEMATOLOGY MCH 31.2 27.0 - 31.0 08/06/2012 [facility] CHEMISTRY Total Protein 7.4 6.4 - 8.4 07/17/2012 Normal [facility] CHEMISTRY Globulin 3.1 2.0 - 4.0 07/17/2012 Normal [facility] CHEMISTRY A/G Ratio 1.4 0.7 - 1.6 07/17/2012 Normal [facility] CHEMISTRY Bili Total 0.2 0.2 - 1.3 07/17/2012 Normal [facility] CHEMISTRY Alk Phos 111 39 - 136 07/17/2012 Normal [facility] CHEMISTRY AST 45 0 - 37 07/17/2012 [facility] CHEMISTRY ALT 133 0 - 65 07/17/2012 [facility] CHEMISTRY eGFR 83 07/17/2012 NA <sup>1</sup>Result Comment: [...] should be multiplied by the estimated BMI. [facility] CHEMISTRY Potassium Lvl 3.9 3.5 - 5.1 07/17/2012 Normal [facility] CHEMISTRY B/C Ratio 9 6 - 25 07/17/2012 Normal [facility] CHEMISTRY Albumin Lvl 4.3 3.5 - 5.0 07/17/2012 Normal [facility] CHEMISTRY AGAP 15.9 10.0 - 20.0 07/17/2012 Normal [facility] CHEMISTRY Calcium Lvl 9.2 8.5 - 10.5 07/17/2012 Normal [facility] CHEMISTRY Chloride Lvl 105 95 - 109 07/17/2012 Normal [facility] CHEMISTRY CO2 25 24 - 32 07/17/2012 Normal [facility] CHEMISTRY Sodium Lvl 142 135 - 145 07/17/2012 Normal [facility] CHEMISTRY Creatinine Lvl 0.9 0.5 - 1.4 07/17/2012 Normal [facility] CHEMISTRY BUN 8 7 - 22 07/17/2012 Normal [facility] CHEMISTRY Glucose Lvl 85 70 - 99 07/17/2012 Normal <sup>2</sup>Interpretive Data: Adult ref erence range values reflect the clinical guidelines
of the [employer]. [facility] CHEMISTRY U Cocaine Scr Negati ve *NA* (07/17/2012 15:00:00) Negati ve 07/17/2012 NA [facility] CHEMISTRY U Cannab Scr Negati ve *NA* (07/17/2012 15:00:00) Negati ve 07/17/2012 NA [facility] CHEMISTRY U Opiate Scr Negati ve *NA* (07/17/2012 15:00:00) Negati ve 07/17/2012 NA [facility] CHEMISTRY UDS Note See No te [...] 300 ng/m L
Urine alcohol 20 mg/dL [facility] CHEMISTRY U Phencyc Scr Negati ve *NA* (07/17/2012 15:00:00) Negati ve 07/17/2012 NA [facility] CHEMISTRY U Amph Scr Negati ve *NA* (07/17/2012 15:00:00) Negati ve 07/17/2012 NA [facility] CHEMISTRY U Pilar Scr Negati ve *NA* (07/17/2012 15:00:00) Negati ve 07/17/2012 NA [facility] CHEMISTRY U Benzodia Scr Positi ve *ABN* (07/17/2012 15:00:00) Negati ve 07/17/2012 ABN [facility] HEMATOLOGY MPV 9.1 7.4 - 10.4 07/17/2012 Normal [facility] HEMATOLOGY Platelet 328 133 - 450 07/17/2012 Normal [facility] HEMATOLOGY RDW 12.8 11.5 - 14.5 07/17/2012 Normal [facility] HEMATOLOGY MCHC 32.9 32.0 - 36.0 07/17/2012 Normal [facility] HEMATOLOGY MCH 31.3 27.0 - 31.0 07/17/2012 HI [facility] HEMATOLOGY WBC 4.0 3.7 - 10.4 07/17/2012 Normal [facility] HEMATOLOGY Hgb 11.7 12.0 - 16.0 07/17/2012 LOW [facility] HEMATOLOGY RBC 3.73 4.20 - 5.40 07/17/2012 LOW [facility] HEMATOLOGY MCV 95.0 81.0 - 99.0 07/17/2012 Normal [facility] HEMATOLOGY Hct 35.5 36.0 - 48.0 07/17/2012 LOW [facility] HEMATOLOGY Segs 54.9 45.0 - 75.0 07/17/2012 Normal [facility] HEMATOLOGY Eosinophils 2.8 0.0 - 4.0 07/17/2012 Normal [facility] HEMATOLOGY Monocytes 7.0 2.0 - 12.0 07/17/2012 Normal [facility] HEMATOLOGY Lymphocytes 34.7 20.0 - 40.0 07/17/2012 Normal [facility] HEMATOLOGY Lymphocytes # 1.4 1.0 - 5.5 07/17/2012 Normal [facility] HEMATOLOGY Eosinophils # 0.1 0.0 - 0.5 07/17/2012 Normal [facility] HEMATOLOGY Monocytes # 0.3 0.0 - 0.8 07/17/2012 Normal [facility] HEMATOLOGY Segs-Bands # 2.2 1.5 - 8.1 07/17/2012 Normal [facility] HEMATOLOGY Basophils 0.6 0.0 - 1.0 07/17/2012 Normal [facility] HEMATOLOGY Basophils # 0.0 0.0 - 0.2 07/17/2012 Normal [facility] CHEMISTRY U Preg Negati ve (07/16/2012 01:22:00) Negati ve 07/16/2012 Normal [facility] Microbiology Culture: Urine 07/16/2012 [facility] URINALYSIS UA Urobilinogen 0.1 - 1.0 07/16/2012 NA [facility] URINALYSIS UA Color Isela 07/16/2012 NA [facility] URINALYSIS UA Sq Epi None Seen 07/16/2012 NA [facility] URINALYSIS UA Protein Negat ojse maria mg/dL (07/16/2012 00:05:00) Negati ve 07/16/2012 Normal [facility] URINALYSIS UA Ketones Negat jose maria mg/dL *NA* (07/16/2012 00:05:00) Negati ve 07/16/2012 NA [facility] URINALYSIS UA Glucose Negat jose maria mg/dL *NA* (07/16/2012 00:05:00) Negati ve 07/16/2012 NA [facility] URINALYSIS UA Spec Grav 1.003 <=1.030 07/16/2012 Normal [facility] URINALYSIS UA pH 7.0 5.0 - 8.0 07/16/2012 Normal [facility] URINALYSIS UA Turbidity Clear (07/16/2012 00:05:00) Clear 07/16/2012 Normal [facility] URINALYSIS UA Leuk Est Negat jose maria (07/16/2012 00:05:00) Negati ve 07/16/2012 Normal [facility] URINALYSIS UA Nitrite Posit jose maria *ABN* (07/16/2012 00:05:00) Negati ve 07/16/2012 ABN [facility] URINALYSIS UA Bili Negat jose maria *NA* (07/16/2012 00:05:00) Negati ve 07/16/2012 NA [facility] URINALYSIS UA RBC <1 0 - 2 07/16/2012 Normal [facility] URINALYSIS UA WBC <1 0 - 5 07/16/2012 Normal [facility] URINALYSIS UA Blood Negat jose maria (07/16/2012 00:05:00) Negati ve 07/16/2012 Normal [facility] CHEMISTRY Lipase Lvl 119 73 - 393 07/16/2012 Normal [facility] CHEMISTRY eGFR 95 07/16/2012 NA <sup>1</sup>Result [...] should be multiplied by the estimated BMI. [facility] CHEMISTRY Albumin Lvl 4.0 3.5 - 5.0 07/16/2012 Normal [facility] CHEMISTRY CO2 30 24 - 32 07/16/2012 Normal [facility] CHEMISTRY Calcium Lvl 8.9 8.5 - 10.5 07/16/2012 Normal [facility] CHEMISTRY BUN 9 7 - 22 07/16/2012 Normal [facility] CHEMISTRY Chloride Lvl 104 95 - 109 07/16/2012 Normal [facility] CHEMISTRY Creatinine Lvl 0.8 0.5 - 1.4 07/16/2012 Normal [facility] CHEMISTRY Sodium Lvl 142 135 - 145 07/16/2012 Normal [facility] CHEMISTRY Potassium Lvl 4.0 3.5 - 5.1 07/16/2012 Normal [facility] CHEMISTRY Glucose Lvl 92 70 - 99 07/16/2012 Normal <sup>2</sup>Interpretive Data: Adult ref erence range values reflect the clinical guidelines
of the [employer]. [facility] CHEMISTRY Total Protein 7.2 6.4 - 8.4 07/16/2012 Normal [facility] CHEMISTRY ALT 157 0 - 65 07/16/2012 HI [facility] CHEMISTRY Alk Phos 98 39 - 136 07/16/2012 Normal [facility] CHEMISTRY Bili Total 0.2 0.2 - 1.3 07/16/2012 Normal [facility] CHEMISTRY AST 65 0 - 37 07/16/2012 [facility] CHEMISTRY B/C Ratio 11 6 - 25 07/16/2012 Normal [facility] CHEMISTRY AGAP 12.0 10.0 - 20.0 07/16/2012 Normal [facility] CHEMISTRY Globulin 3.2 2.0 - 4.0 07/16/2012 Normal [facility] CHEMISTRY A/G Ratio 1.2 0.7 - 1.6 07/16/2012 Normal [facility] HEMATOLOGY Segs-Bands # 1.4 1.5 - 8.1 07/16/2012 LOW [facility] HEMATOLOGY Lymphocytes # 1.6 1.0 - 5.5 07/16/2012 Normal [facility] HEMATOLOGY Eosinophils 4.1 0.0 - 4.0 07/16/2012 [facility] HEMATOLOGY Basophils 0.6 0.0 - 1.0 07/16/2012 Normal [facility] HEMATOLOGY Monocytes 9.8 2.0 - 12.0 07/16/2012 Normal [facility] HEMATOLOGY Eosinophils # 0.1 0.0 - 0.5 07/16/2012 Normal [facility] HEMATOLOGY Monocytes # 0.4 0.0 - 0.8 07/16/2012 Normal [facility] HEMATOLOGY Basophils # 0.0 0.0 - 0.2 07/16/2012 Normal [facility] HEMATOLOGY Segs 39.4 45.0 - 75.0 07/16/2012 [facility] HEMATOLOGY Lymphocytes 46.1 20.0 - 40.0 07/16/2012 [facility] HEMATOLOGY Platelet 305 133 - 450 07/16/2012 Normal [facility] HEMATOLOGY RDW 12.9 11.5 - 14.5 07/16/2012 Normal [facility] HEMATOLOGY MPV 8.4 7.4 - 10.4 07/16/2012 Normal [facility] HEMATOLOGY MCV 96.2 81.0 - 99.0 07/16/2012 Normal [facility] HEMATOLOGY WBC 3.6 3.7 - 10.4 07/16/2012 [facility] HEMATOLOGY MCHC 32.6 32.0 - 36.0 07/16/2012 Normal [facility] HEMATOLOGY MCH 31.4 27.0 - 31.0 07/16/2012 [facility] HEMATOLOGY Hct 33.4 36.0 - 48.0 07/16/2012 LOW [facility] HEMATOLOGY RBC 3.48 4.20 - 5.40 07/16/2012 [facility] HEMATOLOGY Hgb 10.9 12.0 - 16.0 07/16/2012 [facility] BEDSIDE GLUCOSE TESTING Gluc POC Lif scn 68 70 - 99 07/11/2012 LOW <sup>1</sup>Interpretive Data: Upper Reportable Limit: 200 mg/dL. [facility] BEDSIDE GLUCOSE TESTING Comment1 Notify RN/ 07/11/2012 NA [facility] URINALYSIS UA Protein Negat jose maria mg/dL (07/09/2012 13:30:52) Negati ve 07/09/2012 Normal [facility] URINALYSIS UA Bili Negat jose maria *NA* (07/09/2012 13:30:52) Negati ve 07/09/2012 NA [facility] URINALYSIS UA Ketones Negat jose maria mg/dL *NA* (07/09/2012 13:30:52) Negati ve 07/09/2012 NA [facility] URINALYSIS UA Nitrite Negat jose maria (07/09/2012 13:30:52) Negati ve 07/09/2012 Normal [facility] URINALYSIS UA Blood Moder ate *ABN* (07/09/2012 13:30:52) Negati ve 07/09/2012 ABN [facility] URINALYSIS UA Glucose Negat jose maria mg/dL *NA* (07/09/2012 13:30:52) Negati ve 07/09/2012 NA [facility] URINALYSIS UA Color Isela 07/09/2012 NA [facility] URINALYSIS UA Leuk Est Trace *ABN* (07/09/2012 13:30:52) Negati ve 07/09/2012 ABN [facility] URINALYSIS UA Urobilinogen 0.1 - 1.0 07/09/2012 NA [facility] URINALYSIS UA Spec Grav 1.005 <=1.030 07/09/2012 Normal [facility] URINALYSIS UA Turbidity Clear (07/09/2012 13:30:52) Clear 07/09/2012 Normal [facility] URINALYSIS UA pH 6.0 5.0 - 8.0 07/09/2012 Normal [facility] BLOOD [facility] RESULTS Antibody Scrn Negative (07/09/2012 13:04:00) 07/09/2012 Normal [facility] BLOOD BANK RESULTS ABO/Rh O POS 07/09/2012 Unknown [facility] CHEMISTRY B/C Ratio 12 6 - 25 07/09/2012 Normal [facility] CHEMISTRY AGAP 12.5 10.0 - 20.0 07/09/2012 Normal [facility] CHEMISTRY A/G Ratio 1.3 0.7 - 1.6 07/09/2012 Normal [facility] CHEMISTRY Globulin 3.0 2.0 - 4.0 07/09/2012 Normal [facility] CHEMISTRY eGFR 73 07/09/2012 NA <sup>2</sup>Result [...] should be multiplied by the estimated BMI. [facility] CHEMISTRY Albumin Lvl 3.8 3.5 - 5.0 07/09/2012 Normal [facility] CHEMISTRY Calcium Lvl 9.5 8.5 - 10.5 07/09/2012 Normal [facility] CHEMISTRY Chloride Lvl 105 95 - 109 07/09/2012 Normal [facility] CHEMISTRY CO2 31 24 - 32 07/09/2012 Normal [facility] CHEMISTRY Sodium Lvl 143 135 - 145 07/09/2012 Normal [facility] CHEMISTRY Creatinine Lvl 1.0 0.5 - 1.4 07/09/2012 Normal [facility] CHEMISTRY Potassium Lvl 5.5 3.5 - 5.1 07/09/2012 HI [facility] CHEMISTRY BUN 12 7 - 22 07/09/2012 Normal [facility] CHEMISTRY Glucose Lvl 84 70 - 99 07/09/2012 Normal <sup>3</sup>Interpretive Data: Adult ref erence range values reflect the clinical guidelines
of the [employer]. [facility] CHEMISTRY Total Protein 6.8 6.4 - 8.4 07/09/2012 Normal [facility] CHEMISTRY Alk Phos 92 39 - 136 07/09/2012 Normal [facility] CHEMISTRY Bili Total 0.2 0.2 - 1.3 07/09/2012 Normal [facility] CHEMISTRY ALT 44 0 - 65 07/09/2012 Normal [facility] CHEMISTRY AST 13 0 - 37 07/09/2012 Normal [facility] HEMATOLOGY Eosinophils # 0.2 0.0 - 0.5 07/09/2012 Normal [facility] HEMATOLOGY Basophils 0.3 0.0 - 1.0 07/09/2012 Normal [facility] HEMATOLOGY Eosinophils 4.7 0.0 - 4.0 07/09/2012 [facility] HEMATOLOGY Monocytes 10.2 2.0 - 12.0 07/09/2012 Normal [facility] HEMATOLOGY Lymphocytes 50.5 20.0 - 40.0 07/09/2012 [facility] HEMATOLOGY Basophils # 0.0 0.0 - 0.2 07/09/2012 Normal [facility] HEMATOLOGY Monocytes # 0.3 0.0 - 0.8 07/09/2012 Normal [facility] HEMATOLOGY Lymphocytes # 1.7 1.0 - 5.5 07/09/2012 Normal [facility] HEMATOLOGY Segs-Bands # 1.1 1.5 - 8.1 07/09/2012 LOW [facility] HEMATOLOGY Segs 34.3 45.0 - 75.0 07/09/2012 LOW [facility] HEMATOLOGY RBC 3.35 4.20 - 5.40 07/09/2012 LOW [facility] HEMATOLOGY RDW 12.9 11.5 - 14.5 07/09/2012 Normal [facility] HEMATOLOGY MCH 31.7 27.0 - 31.0 07/09/2012 [facility] HEMATOLOGY Platelet 264 133 - 450 07/09/2012 Normal [facility] HEMATOLOGY MCHC 32.5 32.0 - 36.0 07/09/2012 Normal [facility] HEMATOLOGY MCV 97.4 81.0 - 99.0 07/09/2012 Normal [facility] HEMATOLOGY Hct 32.7 36.0 - 48.0 07/09/2012 LOW [facility] HEMATOLOGY MPV 8.9 7.4 - 10.4 07/09/2012 Normal [facility] HEMATOLOGY WBC 3.3 3.7 - 10.4 07/09/2012 LOW [facility] HEMATOLOGY Hgb 10.6 12.0 - 16.0 07/09/2012 LOW [facility] Microbiology Culture: Urine 07/08/2012 [facility] URINALYSIS UA Color Isela 07/08/2012 NA [facility] URINALYSIS UA Sq Epi None Seen 07/08/2012 NA [facility] URINALYSIS UA Spec Grav 1.009 <=1.030 07/08/2012 Normal [facility] URINALYSIS UA Turbidity Clear (07/08/2012 01:50:00) Clear 07/08/2012 Normal [facility] URINALYSIS UA Nitrite Posit jose maria *ABN* (07/08/2012 01:50:00) Negati ve 07/08/2012 ABN [facility] URINALYSIS UA Blood Negat jose maria (07/08/2012 01:50:00) Negati ve 07/08/2012 Normal [facility] URINALYSIS UA Leuk Est Negat jose maria (07/08/2012 01:50:00) Negati ve 07/08/2012 Normal [facility] URINALYSIS UA Urobilinogen 4.0 0.1 - 1.0 07/08/2012 HI [facility] URINALYSIS UA Bili Negat jose maria *NA* (07/08/2012 01:50:00) Negati ve 07/08/2012 NA [facility] URINALYSIS UA Ketones Negat jose maria mg/dL *NA* (07/08/2012 01:50:00) Negati ve 07/08/2012 NA [facility] URINALYSIS UA Glucose Negat jose maria mg/dL *NA* (07/08/2012 01:50:00) Negati ve 07/08/2012 NA [facility] URINALYSIS UA Protein Negat jose maria mg/dL (07/08/2012 01:50:00) Negati ve 07/08/2012 Normal [facility] URINALYSIS UA pH 6.0 5.0 - 8.0 07/08/2012 Normal [facility] CHEMISTRY eGFR 83 07/07/2012 NA <sup>1</sup>Result [...] should be multiplied by the estimated BMI. [facility] CHEMISTRY Potassium Lvl 3.6 3.5 - 5.1 07/07/2012 Normal [facility] CHEMISTRY Sodium Lvl 141 135 - 145 07/07/2012 Normal [facility] CHEMISTRY Creatinine Lvl 0.9 0.5 - 1.4 07/07/2012 Normal [facility] CHEMISTRY BUN 14 7 - 22 07/07/2012 Normal [facility] CHEMISTRY Glucose Lvl 88 70 - 99 07/07/2012 Normal <sup>2</sup>Interpretive Data: Adult ref erence range values reflect the clinical guidelines
of the [employer]. [facility] CHEMISTRY ALT 67 0 - 65 07/07/2012 [facility] CHEMISTRY Globulin 3.5 2.0 - 4.0 07/07/2012 Normal [facility] CHEMISTRY A/G Ratio 1.2 0.7 - 1.6 07/07/2012 Normal [facility] CHEMISTRY Calcium Lvl 8.6 8.5 - 10.5 07/07/2012 [facility] CHEMISTRY B/C Ratio 16 6 - 25 07/07/2012 Normal [facility] CHEMISTRY AGAP 12.6 10.0 - 20.0 07/07/2012 Normal [facility] CHEMISTRY Albumin Lvl 4.1 3.5 - 5.0 07/07/2012 Normal [facility] CHEMISTRY Total Protein 7.6 6.4 - 8.4 07/07/2012 Normal [facility] CHEMISTRY Alk Phos 100 39 - 136 07/07/2012 Normal [facility] CHEMISTRY AST 31 0 - 37 07/07/2012 Normal [facility] CHEMISTRY Bili Total 0.1 0.2 - 1.3 07/07/2012 LOW [facility] CHEMISTRY CO2 28 24 - 32 07/07/2012 Normal [facility] CHEMISTRY Chloride Lvl 104 95 - 109 07/07/2012 Normal [facility] HEMATOLOGY Platelet 238 133 - 450 07/07/2012 Normal [facility] HEMATOLOGY MPV 9.5 7.4 - 10.4 07/07/2012 Normal [facility] HEMATOLOGY Hgb 11.0 12.0 - 16.0 07/07/2012 LOW [facility] HEMATOLOGY MCV 95.8 81.0 - 99.0 07/07/2012 Normal [facility] HEMATOLOGY MCH 31.6 27.0 - 31.0 07/07/2012 HI [facility] HEMATOLOGY MCHC 33.0 32.0 - 36.0 07/07/2012 Normal [facility] HEMATOLOGY WBC 3.3 3.7 - 10.4 07/07/2012 LOW [facility] HEMATOLOGY RBC 3.47 4.20 - 5.40 07/07/2012 LOW [facility] HEMATOLOGY RDW 13.1 11.5 - 14.5 07/07/2012 Normal [facility] HEMATOLOGY Hct 33.2 36.0 - 48.0 07/07/2012 LOW [facility] HEMATOLOGY Segs 39.4 45.0 - 75.0 07/07/2012 LOW [facility] HEMATOLOGY Eosinophils # 0.1 0.0 - 0.5 07/07/2012 Normal [facility] HEMATOLOGY Basophils # 0.0 0.0 - 0.2 07/07/2012 Normal [facility] HEMATOLOGY Monocytes 12.7 2.0 - 12.0 07/07/2012 [facility] HEMATOLOGY Lymphocytes 44.6 20.0 - 40.0 07/07/2012 [facility] HEMATOLOGY Eosinophils 2.7 0.0 - 4.0 07/07/2012 Normal [facility] HEMATOLOGY Basophils 0.6 0.0 - 1.0 07/07/2012 Normal [facility] HEMATOLOGY Segs-Bands # 1.3 1.5 - 8.1 07/07/2012 LOW [facility] HEMATOLOGY Lymphocytes # 1.5 1.0 - 5.5 07/07/2012 Normal [facility] HEMATOLOGY Monocytes # 0.4 0.0 - 0.8 07/07/2012 Normal [facility] CHEMISTRY U Preg Negati ve (07/06/2012 23:36:00) Negati ve 07/07/2012 Normal [facility] URINALYSIS UA Sq Epi None Seen 07/07/2012 NA [facility] URINALYSIS UA RBC <1 0 - 2 07/07/2012 Normal [facility] URINALYSIS UA Urobilinogen 0.1 - 1.0 07/07/2012 NA [facility] URINALYSIS UA WBC <1 0 - 5 07/07/2012 Normal [facility] URINALYSIS UA Ketones Negat jose maria [...] UA Spec Grav 1.006 <=1.030 07/07/2012 Normal [facility] Microbiology Culture: Urine 07/07/2012 [facility] URINALYSIS UA Urobilinogen 0.1 - 1.0 05/31/2012 NA [facility] URINALYSIS UA Color Yello w *NA* (05/31/2012 08:30:00) Yellow 05/31/2012 NA [facility] URINALYSIS UA Turbidity Clear (05/31/2012 08:30:00) Clear 05/31/2012 Normal [facility] URINALYSIS UA Spec Grav 1.016 <=1.030 05/31/2012 Normal [facility] URINALYSIS UA Protein Negat jose maria mg/dL (05/31/2012 08:30:00) Negati ve 05/31/2012 Normal [facility] URINALYSIS UA Glucose Negat jose maria mg/dL *NA* (05/31/2012 08:30:00) Negati ve 05/31/2012 NA [facility] URINALYSIS UA pH 5.0 5.0 - 8.0 05/31/2012 Normal [facility] URINALYSIS UA WBC 2 0 - 5 05/31/2012 Normal [facility] URINALYSIS UA RBC <1 0 - 2 05/31/2012 Normal [facility] URINALYSIS UA Mucus Few / LPF *NA* (05/31/2012 08:30:00) None S een 05/31/2012 [facility] URINALYSIS UA Bili Negat jose maria *NA* (05/31/2012 08:30:00) Negati ve 05/31/2012 NA [facility] URINALYSIS UA Ketones Negat jose maria mg/dL *NA* (05/31/2012 08:30:00) Negati ve 05/31/2012 NA [facility] URINALYSIS UA Blood Negat jose maria (05/31/2012 08:30:00) Negati ve 05/31/2012 Normal [facility] URINALYSIS UA Nitrite Negat jose maria (05/31/2012 08:30:00) Negati ve 05/31/2012 Normal [facility] URINALYSIS UA Leuk Est Small *ABN* (05/31/2012 08:30:00) Negati ve 05/31/2012 ABN [facility] URINALYSIS UA Sq Epi Occas ional /LPF *NA* (05/31/2012 08:30:00) Few 05/31/2012 NA [facility] CHEMISTRY CK MB <0.5 0.5 - 3.6 05/31/2012 Normal [facility] CHEMISTRY Troponin-I <0.02 0.00 - 0.40 05/31/2012 Normal [facility] CHEMISTRY AST 17 0 - 37 05/31/2012 Normal [facility] CHEMISTRY Globulin 2.9 2.0 - 4.0 05/31/2012 Normal [facility] CHEMISTRY Bili Total 0.2 0.2 - 1.3 05/31/2012 Normal [facility] CHEMISTRY A/G Ratio 1.5 0.7 - 1.6 05/31/2012 Normal [facility] CHEMISTRY Alk Phos 86 39 - 136 05/31/2012 Normal [facility] CHEMISTRY ALT 61 0 - 65 05/31/2012 Normal [facility] CHEMISTRY Total Protein 7.2 6.4 - 8.4 05/31/2012 Normal [facility] CHEMISTRY eGFR 83 05/31/2012 NA <sup>1</sup>Result [...] should be multiplied by the estimated BMI. [facility] CHEMISTRY B/C Ratio 14 6 - 25 05/31/2012 Normal [facility] CHEMISTRY Albumin Lvl 4.3 3.5 - 5.0 05/31/2012 Normal [facility] CHEMISTRY AGAP 11.5 10.0 - 20.0 05/31/2012 Normal [facility] CHEMISTRY Calcium Lvl 9.0 8.5 - 10.5 05/31/2012 Normal [facility] CHEMISTRY CO2 28 24 - 32 05/31/2012 Normal [facility] CHEMISTRY Chloride Lvl 105 95 - 109 05/31/2012 Normal [facility] CHEMISTRY Sodium Lvl 141 135 - 145 05/31/2012 Normal [facility] CHEMISTRY Creatinine Lvl 0.9 0.5 - 1.4 05/31/2012 Normal [facility] CHEMISTRY Potassium Lvl 3.5 3.5 - 5.1 05/31/2012 Normal [facility] CHEMISTRY Glucose Lvl 130 70 - 99 05/31/2012 HI <sup>2</sup>Interpretive Data: Adult ref erence range values reflect the clinical guidelines
of the [employer]. [facility] CHEMISTRY BUN 13 7 - 22 05/31/2012 Normal [facility] CHEMISTRY Total CK 74 12 - 191 05/31/2012 Normal [facility] CHEMISTRY CK MB Index <0.7 0.0 - 2.5 05/31/2012 Normal [facility] HEMATOLOGY INR 0.93 0.85 - 1.17 05/31/2012 Normal <sup>3</sup>Interpretive Data: RECOMMEND ED RANGES FOR PROTIME INR:
2.0-3.0 for most medical and surgical thromboembolic states.
2.5-3.5 for artificial heart valves and recurrent embolism.

INR SHOULD BE USED ONLY FOR PATIENTS ON STABLE ANTICOAGULANT THERAPY. [facility] HEMATOLOGY PT 12.7 12.0 - 14.7 05/31/2012 Normal [facility] HEMATOLOGY RDW 12.7 11.5 - 14.5 05/31/2012 Normal [facility] HEMATOLOGY MCH 31.9 27.0 - 31.0 05/31/2012 HI [facility] HEMATOLOGY MCHC 33.0 32.0 - 36.0 05/31/2012 Normal [facility] HEMATOLOGY RBC 3.83 4.20 - 5.40 05/31/2012 LOW [facility] HEMATOLOGY Hgb 12.2 12.0 - 16.0 05/31/2012 Normal [facility] HEMATOLOGY Hct 37.0 36.0 - 48.0 05/31/2012 Normal [facility] HEMATOLOGY MCV 96.6 81.0 - 99.0 05/31/2012 Normal [facility] HEMATOLOGY WBC 5.7 3.7 - 10.4 05/31/2012 Normal [facility] HEMATOLOGY Platelet 272 133 - 450 05/31/2012 Normal [facility] HEMATOLOGY MPV 9.6 7.4 - 10.4 05/31/2012 Normal [facility] HEMATOLOGY Basophils 0.5 0.0 - 1.0 05/31/2012 Normal [facility] HEMATOLOGY Segs-Bands # 3.3 1.5 - 8.1 05/31/2012 Normal [facility] HEMATOLOGY Segs 58.7 45.0 - 75.0 05/31/2012 Normal [facility] HEMATOLOGY Lymphocytes # 1.9 1.0 - 5.5 05/31/2012 Normal [facility] HEMATOLOGY Lymphocytes 33.6 20.0 - 40.0 05/31/2012 Normal [facility] HEMATOLOGY Monocytes # 0.3 0.0 - 0.8 05/31/2012 Normal [facility] HEMATOLOGY Monocytes 5.5 2.0 - 12.0 05/31/2012 Normal [facility] HEMATOLOGY Eosinophils 1.7 0.0 - 4.0 05/31/2012 Normal [facility] HEMATOLOGY Basophils # 0.0 0.0 - 0.2 05/31/2012 Normal [facility] HEMATOLOGY Eosinophils # 0.1 0.0 - 0.5 05/31/2012 Normal [facility] CHEMISTRY Bili Total 0.2 0.2 - 1.3 04/08/2012 Normal [facility] CHEMISTRY AST 17 0 - 37 04/08/2012 Normal [facility] CHEMISTRY Alk Phos 77 39 - 136 04/08/2012 Normal [facility] CHEMISTRY Total Protein 6.9 6.4 - 8.4 04/08/2012 Normal [facility] CHEMISTRY ALT 49 0 - 65 04/08/2012 Normal [facility] CHEMISTRY eGFR 95 04/08/2012 NA <sup>1</sup>Result [...] should be multiplied by the estimated BMI. [facility] CHEMISTRY Calcium Lvl 8.6 8.5 - 10.5 04/08/2012 Normal [facility] CHEMISTRY Albumin Lvl 3.9 3.5 - 5.0 04/08/2012 Normal [facility] CHEMISTRY CO2 28 24 - 32 04/08/2012 Normal [facility] CHEMISTRY Chloride Lvl 106 95 - 109 04/08/2012 Normal [facility] CHEMISTRY Glucose Lvl 85 70 - 99 04/08/2012 Normal <sup>2</sup>Interpretive Data: Adult ref erence range values reflect the clinical guidelines
of the [employer]. [facility] CHEMISTRY Creatinine Lvl 0.8 0.5 - 1.4 04/08/2012 Normal [facility] CHEMISTRY Potassium Lvl 4.2 3.5 - 5.1 04/08/2012 Normal [facility] CHEMISTRY Sodium Lvl 145 135 - 145 04/08/2012 Normal [facility] CHEMISTRY BUN 15 7 - 22 04/08/2012 Normal [facility] CHEMISTRY A/G Ratio 1.3 0.7 - 1.6 04/08/2012 Normal [facility] CHEMISTRY Globulin 3.0 2.0 - 4.0 04/08/2012 Normal [facility] CHEMISTRY AGAP 15.2 10.0 - 20.0 04/08/2012 Normal [facility] CHEMISTRY B/C Ratio 19 6 - 25 04/08/2012 Normal [facility] HEMATOLOGY Basophils # 0.0 0.0 - 0.2 04/08/2012 Normal [facility] HEMATOLOGY Eosinophils # 0.1 0.0 - 0.5 04/08/2012 Normal [facility] HEMATOLOGY Monocytes # 0.4 0.0 - 0.8 04/08/2012 Normal [facility] HEMATOLOGY Segs-Bands # 2.4 1.5 - 8.1 04/08/2012 Normal [facility] HEMATOLOGY Basophils 0.6 0.0 - 1.0 04/08/2012 Normal [facility] HEMATOLOGY Eosinophils 3.1 0.0 - 4.0 04/08/2012 Normal [facility] HEMATOLOGY Lymphocytes # 1.6 1.0 - 5.5 04/08/2012 Normal [facility] HEMATOLOGY Monocytes 8.6 2.0 - 12.0 04/08/2012 Normal [facility] HEMATOLOGY Segs 52.7 45.0 - 75.0 04/08/2012 Normal [facility] HEMATOLOGY Lymphocytes 35.0 20.0 - 40.0 04/08/2012 Normal [facility] HEMATOLOGY Platelet 257 133 - 450 04/08/2012 Normal [facility] HEMATOLOGY RDW 12.9 11.5 - 14.5 04/08/2012 Normal [facility] HEMATOLOGY MPV 9.2 7.4 - 10.4 04/08/2012 Normal [facility] HEMATOLOGY Hgb 11.9 12.0 - 16.0 04/08/2012 LOW [facility] HEMATOLOGY RBC 3.64 4.20 - 5.40 04/08/2012 LOW [facility] HEMATOLOGY Hct 35.3 36.0 - 48.0 04/08/2012 LOW [facility] HEMATOLOGY MCV 97.2 81.0 - 99.0 04/08/2012 Normal [facility] HEMATOLOGY MCH 32.6 27.0 - 31.0 04/08/2012 HI [facility] HEMATOLOGY MCHC 33.6 32.0 - 36.0 04/08/2012 Normal [facility] HEMATOLOGY WBC 4.5 3.7 - 10.4 04/08/2012 Normal [facility] Microbiology Culture: Urine 01/25/2012 [facility] CHEMISTRY UDS Note See No te [...] 300 ng/m L
Urine alcohol 20 mg/dL [facility] CHEMISTRY U Phencyc Scr Negati ve *NA* (01/24/2012 22:46:00) Negati ve 01/25/2012 [facility] CHEMISTRY U Opiate Scr Negati ve *NA* (01/24/2012 22:46:00) Negati ve 01/25/2012 [facility] CHEMISTRY U Cannab Scr Negati ve *NA* (01/24/2012 22:46:00) Negati ve 01/25/2012 [facility] CHEMISTRY U Pilar Scr Negati ve *NA* (01/24/2012 22:46:00) Negati ve 01/25/2012 [facility] CHEMISTRY U Amph Scr Negati ve *NA* (01/24/2012 22:46:00) Negati ve 01/25/2012 [facility] CHEMISTRY U Cocaine Scr Negati ve *NA* (01/24/2012 22:46:00) Negati ve 01/25/2012 [facility] CHEMISTRY U Benzodia Scr Positi ve *ABN* (01/24/2012 22:46:00) Negati ve 01/25/2012 ABN [facility] URINALYSIS UA Urobilinogen 0.1 - 1.0 01/25/2012 [facility] URINALYSIS UA Color Colorless 01/25/2012 NA [facility] URINALYSIS UA Blood Negat jose maria (01/24/2012 22:46:00) Negati ve 01/25/2012 Normal [facility] URINALYSIS UA Bili Negat jose maria *NA* (01/24/2012 22:46:00) Negati ve 01/25/2012 [facility] URINALYSIS UA Ketones Negat jose maria mg/dL [...] mg/dL (01/24/2012 22:46:00) Negati ve 01/25/2012 Normal [facility] URINALYSIS UA pH 6.0 5.0 - 8.0 01/25/2012 Normal [facility] URINALYSIS UA Turbidity Clear (01/24/2012 22:46:00) Clear 01/25/2012 Normal [facility] URINALYSIS UA Spec Grav 1.002 <=1.030 01/25/2012 Normal [facility] BEDSIDE GLUCOSE TESTING Gluc POC Lif scn 116 70 - 99 01/25/2012 OR <sup>1</sup>Interpretive Data: Upper Reportable Limit: 200 mg/dL. [facility] CHEMISTRY Globulin 3.1 2.0 - 4.0 01/25/2012 Normal [facility] CHEMISTRY A/G Ratio 1.4 0.7 - 1.6 01/25/2012 Normal [facility] CHEMISTRY B/C Ratio 14 6 - 25 01/25/2012 Normal [facility] CHEMISTRY AGAP 13.5 10.0 - 20.0 01/25/2012 Normal [facility] CHEMISTRY ALT 76 0 - 65 01/25/2012 [facility] CHEMISTRY Total Protein 7.3 6.4 - 8.4 01/25/2012 [facility] CHEMISTRY AST 45 0 - 37 01/25/2012 [facility] CHEMISTRY Alk Phos 95 39 - 136 01/25/2012 Normal [facility] CHEMISTRY Bili Total 0.2 0.2 - 1.3 01/25/2012 Normal [facility] CHEMISTRY Glucose Lvl 79 70 - 99 01/25/2012 Normal <sup>3</sup>Interpretive Data: Adult ref erence range values reflect the clinical guidelines
of the [employer]. [facility] CHEMISTRY BUN 11 7 - 22 01/25/2012 Normal [facility] CHEMISTRY Creatinine Lvl 0.8 0.5 - 1.4 01/25/2012 Normal [facility] CHEMISTRY Chloride Lvl 108 95 - 109 01/25/2012 Normal [facility] CHEMISTRY CO2 26 24 - 32 01/25/2012 Normal [facility] CHEMISTRY Sodium Lvl 144 135 - 145 01/25/2012 Normal [facility] CHEMISTRY Potassium Lvl 3.5 3.5 - 5.1 01/25/2012 Normal [facility] CHEMISTRY Calcium Lvl 9.1 8.5 - 10.5 01/25/2012 Normal [facility] CHEMISTRY Albumin Lvl 4.2 3.5 - 5.0 01/25/2012 Normal [facility] HEMATOLOGY Basophils 0.4 0.0 - 1.0 01/25/2012 Normal [facility] HEMATOLOGY Eosinophils 4.1 0.0 - 4.0 01/25/2012 [facility] HEMATOLOGY Lymphocytes # 2.2 1.0 - 5.5 01/25/2012 Normal [facility] HEMATOLOGY Segs-Bands # 1.4 1.5 - 8.1 01/25/2012 LOW [facility] HEMATOLOGY Monocytes 8.5 2.0 - 12.0 01/25/2012 Normal [facility] HEMATOLOGY Basophils # 0.0 0.0 - 0.2 01/25/2012 Normal [facility] HEMATOLOGY Monocytes # 0.4 0.0 - 0.8 01/25/2012 Normal [facility] HEMATOLOGY Eosinophils # 0.2 0.0 - 0.5 01/25/2012 Normal [facility] HEMATOLOGY Segs 34.7 45.0 - 75.0 01/25/2012 LOW [facility] HEMATOLOGY Lymphocytes 52.3 20.0 - 40.0 01/25/2012 [facility] HEMATOLOGY RBC 3.72 4.20 - 5.40 01/25/2012 LOW [facility] HEMATOLOGY MCV 95.6 81.0 - 99.0 01/25/2012 Normal [facility] HEMATOLOGY Hct 35.6 36.0 - 48.0 01/25/2012 [facility] HEMATOLOGY Hgb 11.8 12.0 - 16.0 01/25/2012 LOW [facility] HEMATOLOGY MCH 31.7 27.0 - 31.0 01/25/2012 [facility] HEMATOLOGY MCHC 33.2 32.0 - 36.0 01/25/2012 Normal [facility] HEMATOLOGY RDW 14.1 11.5 - 14.5 01/25/2012 Normal [facility] HEMATOLOGY WBC 4.2 3.7 - 10.4 01/25/2012 Normal [facility] HEMATOLOGY Platelet 246 133 - 450 01/25/2012 Normal [facility] HEMATOLOGY MPV 9.9 7.4 - 10.4 01/25/2012 Normal [facility] BEDSIDE GLUCOSE TESTING Comment1 Notify RN/ 01/25/2012 NA [facility] BEDSIDE GLUCOSE TESTING Gluc POC Lif scn 91 70 - 99 01/25/2012 Normal <sup>2</sup>Interpretive Data: Upper Reportable Limit: 200 mg/dL. [facility] BEDSIDE GLUCOSE TESTING Gluc POC Lif scn 65 70 - 99 01/02/2012 LOW <sup>1</sup>Interpretive Data: Upper Reportable Limit: 200 mg/dL. [facility] BEDSIDE GLUCOSE TESTING Comment1 Notify CHIN/ 01/02/2012 NA [facility] CHEMISTRY AGAP 11.5 10.0 - 20.0 01/02/2012 Normal [facility] CHEMISTRY BUN 4 7 - 22 01/02/2012 LOW [facility] CHEMISTRY Creatinine Lvl 0.6 0.5 - 1.4 01/02/2012 Normal [facility] CHEMISTRY Calcium Lvl 8.3 8.5 - 10.5 01/02/2012 LOW [facility] CHEMISTRY CO2 26 24 - 32 01/02/2012 Normal [facility] CHEMISTRY Glucose Lvl 70 70 - 99 01/02/2012 Normal <sup>2</sup>Interpretive Data: Adult ref erence range values reflect the clinical guidelines
of the [employer]. [facility] CHEMISTRY Sodium Lvl 144 135 - 145 01/02/2012 Normal [facility] CHEMISTRY Potassium Lvl 3.5 3.5 - 5.1 01/02/2012 Normal [facility] CHEMISTRY Chloride Lvl 110 95 - 109 01/02/2012 [facility] HEMATOLOGY Basophils # 0.0 0.0 - 0.2 01/02/2012 Normal [facility] HEMATOLOGY Monocytes # 0.2 0.0 - 0.8 01/02/2012 Normal [facility] HEMATOLOGY Eosinophils # 0.1 0.0 - 0.5 01/02/2012 Normal [facility] HEMATOLOGY Lymphocytes # 1.6 1.0 - 5.5 01/02/2012 Normal [facility] HEMATOLOGY Basophils 0.8 0.0 - 1.0 01/02/2012 Normal [facility] HEMATOLOGY Segs-Bands # 0.6 1.5 - 8.1 01/02/2012 LOW [facility] HEMATOLOGY Eosinophils 4.9 0.0 - 4.0 01/02/2012 [facility] HEMATOLOGY Lymphocytes 63.1 20.0 - 40.0 01/02/2012 [facility] HEMATOLOGY Monocytes 7.1 2.0 - 12.0 01/02/2012 Normal [facility] HEMATOLOGY Plt Morph Ashlee l (01/02/2012 05:05:00) 01/02/2012 Normal [facility] HEMATOLOGY Segs 24.1 45.0 - 75.0 01/02/2012 LOW [facility] RBC Morph Ashlee l (01/02/2012 05:05:00) 01/02/2012 Normal [facility] HEMATOLOGY INR 1.08 0.85 - 1.17 01/02/2012 Normal <sup>3</sup>Interpretive Data: RECOMMEND ED RANGES FOR PROTIME INR:
2.0-3.0 for most medical and surgical thromboembolic states.
2.5-3.5 for artificial heart valves and recurrent embolism.

INR SHOULD BE USED ONLY FOR PATIENTS ON STABLE ANTICOAGULANT THERAPY. [facility] HEMATOLOGY PT 14.2 12.0 - 14.7 01/02/2012 Normal [facility] PTT 32.6 22.9 - 35.8 01/02/2012 Normal <sup>4</sup>Interpretive Data: Heparin T herapeutic Range: 57 - 92 Seconds [facility] Hct 28.1 36.0 - 48.0 01/02/2012 LOW [facility] Hgb 9.5 12.0 - 16.0 01/02/2012 LOW [facility] HEMATOLOGY MCH 31.8 27.0 - 31.0 01/02/2012 [facility] HEMATOLOGY MCV 94.3 81.0 - 99.0 01/02/2012 Normal [facility] HEMATOLOGY MCHC 33.8 32.0 - 36.0 01/02/2012 Normal [facility] HEMATOLOGY Platelet 149 133 - 450 01/02/2012 Normal [facility] RDW 16.1 11.5 - 14.5 01/02/2012 [facility] HEMATOLOGY MPV 10.4 7.4 - 10.4 01/02/2012 Normal [facility] RBC 2.99 4.20 - 5.40 01/02/2012 [facility] HEMATOLOGY WBC 2.6 3.7 - 10.4 01/02/2012 [facility] HEMATOLOGY Hgb 10.7 12.0 - 16.0 01/02/2012 [facility] HEMATOLOGY Hgb 10.4 12.0 - 16.0 01/01/2012 [facility] BLOOD BANK RESULTS ABO/Rh O POS 01/01/2012 Unknown [facility] BLOOD BANK RESULTS Antibody Scrn Negative (01/01/2012 08:51:00) 01/01/2012 [facility] HEMATOLOGY MPV 10.1 7.4 - 10.4 12/31/2011 [facility] HEMATOLOGY Platelet 209 133 - 450 12/31/2011 [facility] HEMATOLOGY Hct 32.1 36.0 - 48.0 12/31/2011 [facility] HEMATOLOGY RDW 16.5 11.5 - 14.5 12/31/2011 [facility] HEMATOLOGY MCV 94.1 81.0 - 99.0 12/31/2011 [facility] HEMATOLOGY MCHC 33.8 32.0 - 36.0 12/31/2011 [facility] HEMATOLOGY MCH 31.8 27.0 - 31.0 12/31/2011 [facility] HEMATOLOGY WBC 3.3 3.7 - 10.4 12/31/2011 [facility] HEMATOLOGY RBC 3.42 4.20 - 5.40 12/31/2011 [facility] HEMATOLOGY Eosinophils # 0.2 0.0 - 0.5 12/31/2011 [facility] HEMATOLOGY Monocytes # 0.2 0.0 - 0.8 12/31/2011 [facility] HEMATOLOGY Basophils # 0.0 0.0 - 0.2 12/31/2011 [facility] HEMATOLOGY Segs-Bands # 1.2 1.5 - 8.1 12/31/2011 [facility] HEMATOLOGY Eosinophils 4.5 0.0 - 4.0 12/31/2011 [facility] HEMATOLOGY Basophils 0.8 0.0 - 1.0 12/31/2011 [facility] HEMATOLOGY Segs 36.3 45.0 - 75.0 12/31/2011 [facility] HEMATOLOGY Lymphocytes 52.7 20.0 - 40.0 12/31/2011 [facility] HEMATOLOGY Monocytes 5.7 2.0 - 12.0 12/31/2011 [facility] HEMATOLOGY Lymphocytes # 1.7 1.0 - 5.5 12/31/2011 [facility] STOOL TESTS Occult Bld Stl Posi tive *ABN* (12/31/2011 00:13:00) Negati ve 12/31/2011 ABN [facility] CHEMISTRY AST 10 0 - 37 12/31/2011 Normal [facility] CHEMISTRY Albumin Lvl 4.5 3.5 - 5.0 12/31/2011 Normal [facility] CHEMISTRY ALT 46 0 - 65 12/31/2011 Normal [facility] CHEMISTRY Bili Total 0.2 0.2 - 1.3 12/31/2011 Normal [facility] CHEMISTRY CO2 23 24 - 32 12/31/2011 LOW [facility] CHEMISTRY Potassium Lvl 3.8 3.5 - 5.1 12/31/2011 Normal [facility] CHEMISTRY Chloride Lvl 107 95 - 109 12/31/2011 Normal [facility] CHEMISTRY Total Protein 7.9 6.4 - 8.4 12/31/2011 Normal [facility] CHEMISTRY Alk Phos 94 39 - 136 12/31/2011 Normal [facility] CHEMISTRY Glucose Lvl 91 70 - 99 12/31/2011 Normal <sup>1</sup>Interpretive Data: Adult ref erence range values reflect the clinical guidelines
of the [employer]. [facility] CHEMISTRY Calcium Lvl 9.3 8.5 - 10.5 12/31/2011 Normal [facility] CHEMISTRY BUN 14 7 - 22 12/31/2011 Normal [facility] CHEMISTRY Sodium Lvl 140 135 - 145 12/31/2011 Normal [facility] CHEMISTRY Creatinine Lvl 0.8 0.5 - 1.4 12/31/2011 Normal [facility] CHEMISTRY AGAP 13.8 10.0 - 20.0 12/31/2011 Normal [facility] CHEMISTRY B/C Ratio 18 6 - 25 12/31/2011 Normal [facility] CHEMISTRY A/G Ratio 1.3 0.7 - 1.6 12/31/2011 Normal [facility] CHEMISTRY Globulin 3.4 2.0 - 4.0 12/31/2011 Normal [facility] CHEMISTRY Lipase Lvl 157 73 - 393 12/31/2011 Normal [facility] HEMATOLOGY RDW 16.3 11.5 - 14.5 12/31/2011 HI [facility] HEMATOLOGY Platelet 263 133 - 450 12/31/2011 Normal [facility] HEMATOLOGY MPV 9.9 7.4 - 10.4 12/31/2011 Normal [facility] HEMATOLOGY Hct 38.6 36.0 - 48.0 [...] ional /LPF *NA* (12/30/2011 23:17:00) Few 12/31/2011 [facility] URINALYSIS UA Hyal Cast 1 [...] mg/dL *NA* (12/30/2011 23:17:00) Negati ve 12/31/2011 [facility] URINALYSIS UA Bili Negat jose maria *NA* (12/30/2011 23:17:00) Negati ve 12/31/2011 NA [facility] URINALYSIS UA Turbidity Clear (12/30/2011 23:17:00) Clear 12/31/2011 Normal [facility] URINALYSIS UA Spec Grav 1.019 <=1.030 12/31/2011 Normal [facility] URINALYSIS UA Urobilinogen 0.1 - 1.0 10/16/2011 [facility] URINALYSIS UA Color Ltyellow 10/16/2011 [facility] URINALYSIS UA Trans Epi 1 <=0 10/16/2011 HI [facility] URINALYSIS UA WBC 6 0 - 5 10/16/2011 [facility] URINALYSIS UA RBC 3 0 - 2 10/16/2011 [facility] URINALYSIS UA Mucus Few / LPF *NA* (10/16/2011 01:36:00) None S een 10/16/2011 [facility] URINALYSIS UA Leuk Est Moder ate *ABN* (10/16/2011 01:36:00) Negati ve 10/16/2011 ABN [facility] URINALYSIS UA Sq Epi Occas ional /LPF *NA* (10/16/2011 01:36:00) Few 10/16/2011 NA [facility] URINALYSIS UA Ketones Negat jose maria mg/dL *NA* (10/16/2011 01:36:00) Negati ve 10/16/2011 NA [facility] URINALYSIS UA Bili Negat jose maria *NA* (10/16/2011 01:36:00) Negati ve 10/16/2011 NA [facility] URINALYSIS UA Blood Negat jose maria (10/16/2011 01:36:00) Negati ve 10/16/2011 Normal [facility] URINALYSIS UA Glucose Negat jose maria mg/dL *NA* (10/16/2011 01:36:00) Negati ve 10/16/2011 NA [facility] URINALYSIS UA Protein Negat jose maria mg/dL (10/16/2011 01:36:00) Negati ve 10/16/2011 Normal [facility] URINALYSIS UA Nitrite Negat jose maria (10/16/2011 01:36:00) Negati ve 10/16/2011 Normal [facility] URINALYSIS UA Turbidity Sligh t *ABN* (10/16/2011 01:36:00) Clear 10/16/2011 ABN [facility] URINALYSIS UA Spec Grav 1.019 <=1.030 10/16/2011 Normal [facility] URINALYSIS UA pH 6.0 5.0 - 8.0 10/16/2011 Normal [facility] CHEMISTRY AGAP 14.7 10.0 - 20.0 10/16/2011 Normal [facility] CHEMISTRY Creatinine Lvl 0.7 0.5 - 1.4 10/16/2011 Normal [facility] CHEMISTRY Sodium Lvl 143 135 - 145 10/16/2011 Normal [facility] CHEMISTRY BUN 14 7 - 22 10/16/2011 Normal [facility] CHEMISTRY Glucose Lvl 91 70 - 99 10/16/2011 Normal <sup>1</sup>Interpretive Data: Adult ref erence range values reflect the clinical guidelines of the [employer]. [facility] CHEMISTRY CO2 23 24 - 32 10/16/2011 LOW [facility] CHEMISTRY Calcium Lvl 8.9 8.5 - 10.5 10/16/2011 Normal [facility] CHEMISTRY Potassium Lvl 3.7 3.5 - 5.1 10/16/2011 Normal [facility] CHEMISTRY Chloride Lvl 109 95 - 109 10/16/2011 Normal [facility] HEMATOLOGY Hct 40.3 36.0 - 48.0 10/16/2011 Normal [facility] HEMATOLOGY WBC 4.6 3.7 - 10.4 10/16/2011 Normal [facility] HEMATOLOGY RDW 16.2 11.5 - 14.5 10/16/2011 [facility] HEMATOLOGY MPV 10.2 7.4 - 10.4 10/16/2011 Normal [facility] HEMATOLOGY MCH 30.8 27.0 - 31.0 10/16/2011 Normal [facility] HEMATOLOGY MCHC 33.4 32.0 - 36.0 10/16/2011 Normal [facility] HEMATOLOGY Platelet 243 133 - 450 10/16/2011 Normal [facility] HEMATOLOGY RBC 4.37 4.20 - 5.40 10/16/2011 Normal [facility] HEMATOLOGY Hgb 13.4 12.0 - 16.0 10/16/2011 Normal [facility] HEMATOLOGY MCV 92.2 81.0 - 99.0 10/16/2011 Normal [facility] HEMATOLOGY Lymphocytes # 1.9 1.0 - 5.5 10/16/2011 Normal [facility] HEMATOLOGY Eosinophils # 0.1 0.0 - 0.5 10/16/2011 Normal [facility] HEMATOLOGY Segs-Bands # 2.2 1.5 - 8.1 10/16/2011 Normal [facility] HEMATOLOGY Monocytes # 0.4 0.0 - 0.8 10/16/2011 Normal [facility] HEMATOLOGY Segs 47.8 45.0 - 75.0 10/16/2011 Normal [facility] HEMATOLOGY Monocytes 9.0 2.0 - 12.0 10/16/2011 Normal [facility] HEMATOLOGY Lymphocytes 40.1 20.0 - 40.0 10/16/2011 [facility] HEMATOLOGY Eosinophils 2.8 0.0 - 4.0 10/16/2011 Normal [facility] HEMATOLOGY Basophils 0.3 0.0 - 1.0 10/16/2011 Normal [facility] HEMATOLOGY Basophils # 0.0 0.0 - 0.2 10/16/2011 Normal [facility] CHEMISTRY Glucose Lvl 70 70 - 99 10/10/2011 Normal <sup>3</sup>Interpretive Data: Adult ref erence range values reflect the clinical guidelines of the [employer]. [facility] CHEMISTRY Creatinine Lvl 0.9 0.5 - 1.4 10/10/2011 Normal [facility] CHEMISTRY BUN 10 7 - 22 10/10/2011 Normal [facility] CHEMISTRY CO2 23 24 - 32 10/10/2011 LOW [facility] CHEMISTRY Calcium Lvl 8.8 8.5 - 10.5 10/10/2011 [facility] CHEMISTRY Chloride Lvl 108 95 - 109 10/10/2011 Normal [facility] CHEMISTRY Potassium Lvl 4.0 3.5 - 5.1 10/10/2011 Normal [facility] CHEMISTRY Sodium Lvl 143 135 - 145 10/10/2011 Normal [facility] CHEMISTRY AGAP 16.0 10.0 - 20.0 10/10/2011 Normal [facility] HEMATOLOGY Segs-Bands # 1.3 1.5 - [...] Monocytes 5.5 2.0 - 12.0 10/10/2011 Normal [facility] HEMATOLOGY Lymphocytes 55.8 20.0 - 40.0 10/10/2011 [facility] HEMATOLOGY Segs 34.7 45.0 - 75.0 10/10/2011 [facility] HEMATOLOGY Platelet 187 133 - 450 10/10/2011 Normal [facility] HEMATOLOGY RDW 15.7 11.5 - 14.5 10/10/2011 [facility] HEMATOLOGY MCHC 33.7 32.0 - 36.0 10/10/2011 Normal [facility] HEMATOLOGY MPV 10.1 7.4 - 10.4 10/10/2011 Normal [facility] HEMATOLOGY Hct 35.6 36.0 - 48.0 10/10/2011 LOW [facility] HEMATOLOGY WBC 3.8 3.7 - 10.4 10/10/2011 Normal [facility] HEMATOLOGY MCV 91.6 81.0 - 99.0 10/10/2011 Normal [facility] HEMATOLOGY MCH 30.9 27.0 - 31.0 10/10/2011 Normal [facility] HEMATOLOGY Hgb 12.0 12.0 - 16.0 10/10/2011 Normal [facility] HEMATOLOGY RBC 3.89 4.20 - 5.40 10/10/2011 LOW [facility] BEDSIDE GLUCOSE TESTING Gluc POC Lif scn 95 70 - 99 10/10/2011 Normal <sup>1</sup>Interpretive Data: Upper Reportable Limit: 200 mg/dL. [facility] BEDSIDE GLUCOSE TESTING Comment1 Notify RN/ 10/10/2011 NA [facility] BLOOD BANK RESULTS ABO/Rh O POS 10/09/2011 Unknown [facility] BLOOD BANK RESULTS Antibody Scrn Negative (10/09/2011 10:34:00) 10/09/2011 Normal [facility] CHEMISTRY Ferritin Lvl 6 5 - 204 10/09/2011 Normal [facility] CHEMISTRY Vitamin B12 Lvl 131 211 - 911 10/09/2011 LOW [facility] CHEMISTRY Folate Lvl 15.6 >=3.0 10/09/2011 Normal [facility] CHEMISTRY Iron 57 30 - 160 10/09/2011 Normal [facility] CHEMISTRY % [place] 12 12 - 57 10/09/2011 Normal [facility] CHEMISTRY TIBC 471 228 - 428 10/09/2011 [facility] CHEMISTRY UIBC 414 110 - 370 10/09/2011 [facility] BLOOD BANK RESULTS RBC product Product available 2 (10/09/2011 09:01:00) 10/09/2011 Normal <sup>2</sup>Result Comment: 10/09/2011 12:02 ABBEY called to diana 10/09/2011 12:02 [facility] HEMATOLOGY Hgb 8.5 12.0 - 16.0 10/09/2011 LOW [facility] HEMATOLOGY Hct 26.1 36.0 - 48.0 10/09/2011 LOW [facility] CHEMISTRY AGAP 11.4 10.0 - 20.0 10/09/2011 Normal [facility] CHEMISTRY Sodium Lvl 147 135 - 145 10/09/2011 [facility] CHEMISTRY Creatinine Lvl 1.0 0.5 - 1.4 10/09/2011 Normal [facility] CHEMISTRY BUN 9 7 - 22 10/09/2011 Normal [facility] CHEMISTRY Potassium Lvl 3.4 3.5 - 5.1 10/09/2011 LOW [facility] CHEMISTRY Glucose Lvl 90 70 - 99 10/09/2011 Normal <sup>4</sup>Interpretive Data: Adult ref erence range values reflect the clinical guidelines of the [employer]. [facility] CHEMISTRY Calcium Lvl 8.5 8.5 - 10.5 10/09/2011 Normal [facility] CHEMISTRY CO2 28 24 - 32 10/09/2011 Normal [facility] CHEMISTRY Chloride Lvl 111 95 - 109 10/09/2011 [facility] HEMATOLOGY Platelet 211 133 - 450 10/09/2011 Normal [facility] HEMATOLOGY RDW 15.1 11.5 - 14.5 10/09/2011 [facility] HEMATOLOGY MPV 9.5 7.4 - 10.4 10/09/2011 Normal [facility] HEMATOLOGY MCHC 33.3 32.0 - 36.0 10/09/2011 Normal [facility] HEMATOLOGY WBC 4.1 3.7 - 10.4 10/09/2011 Normal [facility] HEMATOLOGY RBC 3.11 4.20 - 5.40 10/09/2011 LOW [facility] HEMATOLOGY Hct 28.1 36.0 - 48.0 10/09/2011 [facility] HEMATOLOGY MCV 90.4 81.0 - 99.0 10/09/2011 Normal [facility] HEMATOLOGY Hgb 9.4 12.0 - 16.0 10/09/2011 LOW [facility] HEMATOLOGY MCH 30.1 27.0 - 31.0 10/09/2011 Normal [facility] HEMATOLOGY Lymphocytes 45.7 20.0 - 40.0 10/09/2011 [facility] HEMATOLOGY Segs 41.6 45.0 - 75.0 10/09/2011 LOW [facility] HEMATOLOGY Segs-Bands # 1.7 1.5 - 8.1 10/09/2011 Normal [facility] HEMATOLOGY Basophils 0.5 0.0 - 1.0 10/09/2011 Normal [facility] HEMATOLOGY Eosinophils 2.1 0.0 - 4.0 10/09/2011 Normal [facility] HEMATOLOGY Monocytes 10.1 2.0 - 12.0 10/09/2011 Normal [facility] HEMATOLOGY Lymphocytes # 1.9 1.0 - 5.5 10/09/2011 Normal [facility] HEMATOLOGY Eosinophils # 0.1 0.0 - 0.5 10/09/2011 Normal [facility] HEMATOLOGY Basophils # 0.0 0.0 - 0.2 10/09/2011 Normal [facility] HEMATOLOGY Monocytes # 0.4 0.0 - 0.8 10/09/2011 Normal [facility] Pathology Reports No Data Provided for This Section Diagnostic Reports Report Value Date Source Abdomen/Pelvis w IV contrast CT Patient Name: LOGAN LEIVA : 1975; Age: 40 years Female MR: [id number] Study: Abdomen/Pelvis w IV contrast CT 07/13/2016 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 Hepatic steatosis. Mildly distended bladder. SL: [id number] 07/13/2016 [facility] Chest 2 views DX Study: Chest 2 views DX Clinical Indication: Cough and fever Comparison: Chest x-ray from 05/02/2016 FINDINGS: The cardiac silhouette is normal in size. The lungs are clear and without consolidation or congestion. No pleural effusion or pneumothorax is seen. The osseous structures are unremarkable. IMPRESSION: No acute cardiopulmonary disease. SL: CHANA 07/13/2016 [facility] Small bowel series DX Small jamir wel series DX CLINICAL HISTORY: Abdominal distension; NOTE: No fluoroscopy was utilized. COMPARISON: None TECHNIQUE: Serial overhead images of the abdomen were performed at 15 to 30 minute intervals following ingestion of oral Omnipaque. Postsurgical change is noted in the lower lumbar spine. FINDINGS: Can Top Setter study reveals a nonobstructive bowel gas pattern. [...] radiographic evidence for small bowel obstruction. SL: [id number] 05/04/2016 [facility] Enterography Abd/Pel w IV contrast CT [...] in the pelvis. 7. Fatty liver. SL: [id number] 05/02/2016 [facility] Chest 1view DX Study: Chest 1v [...] in the lower SVC. SL: WRArianna 05/02/2016 [facility] Nasogastric tube placement VR NASOGASTRIC TUBE PLACEMENT WITH FLUOROSCOPY: HISTORY: Abdominal distention with history of gastrojejunostomy. Nasogastric tube placement under fluoroscopy was requested. PROCEDURE: A 16-Panamanian sump tube was placed under fluoroscopic guidance [...] to her hospital room in stable condition [id number] 05/02/2016 [facility] Abdomen 2 views DX ABDOMEN, 2 VIEW HISTORY: Abdominal distension; COMPARISON: Abdominal radiography dated 09/20/[address] abdomen/pelvis dated 04/30/2016 FINDINGS: Bowel gas pattern is nonobstructive. No free air collecting under either hemidiaphragm. Cholecystectomy and lumbar fusion are noted.. SL: JULIUS 05/01/2016 [facility] Abdomen/Pelvis w IV contrast CT Clinical [...] to m arkedly distended urinary bladder. 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 COMPARISON: CT abdomen [...] 3. Moderate distention of the bladder. SL: [id number] 04/12/2016 [facility] Ankle 3 views DX EXAM: XR RIGH T ANKLE, 3 VIEWS DATE: 04/11/2016 11:32 PM INSTALLATION DRAFTER INDICATION: Pain from a fall. COMPARISON: None Available. TECHNIQUE: Frontal, oblique, and lateral views of the right ankle were obtained. FINDINGS: No fracture or malalignment is present. The soft tissues are within normal limits. There are no radiopaque foreign bodies. IMPRESSION: No acute fracture or dislocation. SL: [id number] 04/11/2016 [facility] Brain wo contrast CT Clinical Indication: [...] the appropriate clinical setting. SL: JORGE 04/05/2016 [facility] Abdomen/Pelvis w IV contrast CT Study: [...] process in the abdomen or pelvis 04/05/2016 [facility] Abdomen RUQ US Clinical Indica tion: [...] has had a cholecystectomy. SL: FREDY 03/02/2016 [facility] Forearm 2 views DX Left forear [...] obscures fine bony detail. SL: 14 03/20/2015 [facility] Abdomen AP DX HISTORY: Abdomin al pain. Abdomen one view. Comparison 12/16/2013. Normal bowel gas pattern. Right upper quadrant surgical clips. Previous lower lumbar laminectomy and fusion. Bilateral pelvic phleboliths. No other pathologic calcification. IMPRESSION: No specific acute finding. SL:13 09/20/2014 [facility] Abdomen wo contrast MRI MRCP: TECHNIQUE: [...] excluded. 3. Normal pancreatic duct. SL:13 09/14/2014 [facility] Foot series LEFT FOOT SERIES- 3 [...] pad region. Otherwise negative. SL: 13 02/09/2014 [facility] Abdomen AP view Portable abdom en: [...] IMPRESSION: Nonspecific bowel distention without obstruction. SL:12/16/2013 [facility] Abdomen complete US HISTORY: A bdominal [...] laboratory data. No other acute findings SL:12/15/2013 [facility] Chest 2 views HISTORY: Abnorma l chest sounds. Two views chest. Lungs are clear. Heart size normal. There is no pleural effusion or pneumothorax. No specific osseous abnormality. IMPRESSION: No acute finding. SL:12/10/2013 [facility] Brain wo contrast CT CT BRAIN WITHOUT CONTRAST INDICATION: Headache with dizziness COMPARISON: CT brain 09/06/2013 FINDINGS: There is no evidence of acute vascular insults, space occupying lesions, hemorrhage, hydrocephalus, midline shift, or extra-axial collections. The calvarium is intact. IMPRESSION: No acute intracranial abnormalities are visualized. SL: 12/10/2013 [facility] Spine lumbar wo contrast MRI M NC LUMBAR SPINE WITHOUT CONTRAST COMPARISON: 03/07/2012 radiograph [...] chest. New PICC line satisfactory SL:13 09/19/2013 [facility] Chest 2 views EXAM: Chest 2 views HISTORY: Abnormal chest sounds. COMPARISON: 06/05/2013. TECHNIQUE: Frontal and lateral views of the chest. FINDINGS: Heart size normal. The lungs are clear. No pleural effusion. IMPRESSION: Negative chest radiographs. SL: 14 09/19/2013 [facility] Abdomen AP view Examination: A bdomen, [...] Nonobstructive bowel gas pattern. SL: 12 09/09/2013 [facility] Abdomen wo contrast MRI MR ABD [...] and presum ed surgically absent. SL: 09/07/2013 [facility] Brain contrast CT Examinati on: CT [...] IMPRESSION: No acute intracranial abnormality. 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 [...] significant obstruction. Fluoroscopy Time: 0.5 minutes SL:09/06/2013 [facility] Abdomen contrast MRI MRCP. TECHNIQUE: Multiple [...] duct. No definite evidence for choledocholithiasis. SL:09/03/2013 [facility] Abdomen/Pelvis w IV contrast CT CT [...] CT of the abdomen or pelvis. SL:09/01/2013 [facility] Abdomen AP view PROCEDURE: Ab domen 1 view REASON FOR EXAM: See Clinic Indication CLINICAL INDICATION: Abdominal pain, acute COMPARISON: 09/27/2012. FINDINGS: Nonspecific bowel gas pattern is present. No definite free air. Abundance of stool with within the colon. Multiple phleboliths are present in the pelvis. Postoperative cholecystectomy. Postoperative laminectomy and posterior spinal fusion are present. SL: 06/08/2013 [facility] Sinus wo contrast CT CT SINUSE [...] infectious process are identified. SL: 17 06/06/2013 [facility] Chest 2 views EXAM: Chest 2 views HISTORY: Cough, fever. COMPARISON: 02/12/2013. TECHNIQUE: Frontal and lateral views of the chest. FINDINGS: Heart size normal. The lungs are clear. No pleural effusion. IMPRESSION: Negative chest radiographs. SL:13 06/05/2013 [facility] Chest 2 views HISTORY: Chest p ain. Chest 2 views. Lungs are clear. Cardiomediastinal silhouette normal. There is no pleural effusion or pneumothorax. IMPRESSION: No acute findings. 12 02/12/2013 [facility] Hip min 2 views EXAM: RIGHT [...] are unremarkable. IMPRESSION: No acute abnormality. 09/27/2012 [facility] Brain wo contrast CT CT SCAN [...] Normal CT scan of the brain. 09/27/2012 [facility] Consultation Notes No Data Provided for This Section Discharge Summaries No Data Provided for This Section History and Physicals No Data Provided for This Section Vital Signs Vital Sign Value Date Comments Source Respitory Rate 16 08/05/2016 [facility] Systolic (mm Hg) 106 08/05/2016 [facility] Diastolic (mm Hg) 67 08/05/2016 [facility] Heart Rate 66 08/05/2016 [facility] Temperature Oral (F) 96.8 F 08/05/2016 [facility] Height 170.18 cm 08/05/2016 [facility] Weight 68.636 08/05/2016 [facility] BMI Calculated 23.7 08/05/2016 [facility] Temperature Oral (F) 97.5 F 08/05/2016 [facility] Systolic (mm Hg) 103 08/05/2016 [facility] Diastolic (mm Hg) 72 08/05/2016 [facility] Heart Rate 108 08/05/2016 [facility] Respitory Rate 20 08/05/2016 [facility] Respitory Rate 16 07/13/2016 [facility] Heart Rate 74 07/13/2016 [facility] Systolic (mm Hg) 116 07/13/2016 [facility] Diastolic (mm Hg) 72 07/13/2016 [facility] Temperature Oral (F) 97.8 F 07/13/2016 [facility] Heart Rate 76 07/13/2016 [facility] Systolic (mm Hg) 122 07/13/2016 [facility] Diastolic (mm Hg) 76 07/13/2016 [facility] Respitory Rate 19 07/13/2016 [facility] Systolic (mm Hg) 112 07/13/2016 [facility] Diastolic (mm Hg) 62 07/13/2016 [facility] Respitory Rate 17 07/13/2016 [facility] Heart Rate 72 07/13/2016 [facility] Temperature Oral (F) 98 F 07/13/2016 [facility] Height 167.64 cm 07/13/2016 [facility] BMI Calculated 23.13 07/13/2016 [facility] Weight 65 0 07/13/2016 [facility] Temperature Oral (F) 98.3 F 07/13/2016 [facility] Respitory Rate 17 05/10/2016 [facility] Temperature Oral (F) 98.5 F 05/10/2016 [facility] Heart Rate 90 05/10/2016 [facility] Systolic [...] cm 04/06/2016 [facility] BMI Calculated 23.51 04/06/2016 [facility] Heart Rate 71 04/06/2016 [facility] Systolic (mm Hg) 129 04/06/2016 [facility] Diastolic (mm Hg) 88 04/06/2016 [facility] Systolic (mm Hg) 130 03/03/2016 [facility] Diastolic (mm Hg) 86 03/03/2016 [facility] Respitory Rate 18 03/03/2016 [facility] Temperature Oral (F) 98.2 F 03/03/2016 [facility] Heart Rate 88 03/03/2016 [facility] Temperature Oral (F) 98.0 F 03/03/2016 [...] 03/21/2015 [facility] Diastolic (mm Hg) 77 03/21/2015 [facility] Temperature Oral (F) 98.3 F 03/21/2015 [facility] Height 167.64 cm 03/21/2015 [facility] Systolic (mm Hg) 123 09/30/2014 [facility] Diastolic (mm Hg) 85 09/30/2014 [facility] Temperature Oral (F) 98 F 09/30/2014 [facility] Respitory Rate 16 09/30/2014 [facility] Heart Rate 72 09/30/2014 [facility] Heart Rate 89 09/30/2014 [facility] Systolic (mm Hg) 114 09/30/2014 [facility] Diastolic (mm Hg) 76 09/30/2014 [facility] Temperature Oral (F) 97.9 F 09/30/2014 [facility] Respitory Rate 16 09/30/2014 [facility] Respitory Rate 16 09/29/2014 [facility] Systolic (mm Hg) 110 09/29/2014 [facility] Diastolic (mm Hg) 71 09/29/2014 [facility] Heart Rate 80 09/29/2014 [facility] Temperature Oral (F) 97.5 F 09/29/2014 [facility] BMI Calculated 23.29 09/14/2014 [facility] Weight 65.455 09/14/2014 [facility] Height 167.64 cm 09/14/2014 [facility] BMI Calculated 20.72 09/14/2014 [facility] Weight 60 0 09/14/2014 [facility] Height 170.18 cm 09/14/2014 [facility] Respitory Rate 18 02/09/2014 [facility] Heart Rate 63 02/09/2014 [facility] Systolic (mm Hg) 117 02/09/2014 [facility] Diastolic (mm Hg) 79 02/09/2014 [facility] Temperature Oral (F) 97.6 F 02/09/2014 [facility] BMI Calculated 23.61 02/09/2014 [facility] Height 167.64 cm 02/09/2014 [facility] Weight 66.364 02/09/2014 [facility] Diastolic (mm Hg) 75 02/09/2014 [facility] Respitory Rate 18 02/09/2014 [facility] Heart Rate 75 02/09/2014 [facility] Temperature Oral (F) 97.7 F 02/09/2014 [facility] Systolic (mm Hg) 117 02/09/2014 [facility] Weight 66.364 02/09/2014 [facility] BMI Calculated 23.61 02/09/2014 [facility] Height 167.64 cm 02/09/2014 [facility] Diastolic (mm Hg) 69 2013 [facility] Systolic (mm Hg) 101 2013 [facility] Heart Rate 86 2013 [facility] Respitory Rate 17 2013 [facility] Temperature Oral (F) 98.2 F 2013 [facility] Diastolic (mm Hg) 78 2013 [facility] Systolic (mm Hg) 113 2013 [facility] Respitory Rate 18 2013 [facility] Temperature Oral (F) 98.0 F 2013 [facility] Heart Rate 80 2013 [facility] Diastolic (mm Hg) 82 2013 [facility] Systolic (mm Hg) 125 2013 [facility] Heart Rate 88 2013 [facility] Temperature Oral (F) 97.4 F 2013 [facility] Respitory Rate 17 2013 [facility] Height 170.18 cm 12/10/2013 [facility] BMI Calculated 21.97 12/10/2013 [facility] Weight 63.636 12/10/2013 [facility] Height 170.18 cm 12/07/2013 [facility] BMI Calculated 22.29 12/07/2013 [facility] Weight 64.545 12/07/2013 [facility] Systolic (mm Hg) 116 12/07/2013 [facility] Temperature Oral (F) 98.4 F 12/07/2013 [facility] Respitory Rate 18 12/07/2013 [facility] Heart Rate 71 12/07/2013 [facility] Diastolic (mm Hg) 74 12/07/2013 [facility] Temperature Oral (F) 98.3 F 09/24/2013 [facility] Systolic (mm Hg) 115 09/24/2013 [facility] Diastolic (mm Hg) 77 09/24/2013 [facility] Heart Rate 108 09/24/2013 [facility] Respitory Rate 16 09/24/2013 [facility] Heart Rate 92 09/24/2013 [facility] Temperature Oral (F) 98.1 F 09/24/2013 [facility] Respitory Rate 16 09/24/2013 [facility] Systolic (mm Hg) 112 09/24/2013 [facility] Diastolic (mm Hg) 75 09/24/2013 [facility] Temperature Oral (F) 98.2 F 09/24/2013 [facility] Systolic (mm Hg) 114 09/24/2013 [facility] Respitory Rate 16 09/24/2013 [facility] Heart Rate 97 09/24/2013 [facility] Diastolic (mm Hg) 73 09/24/2013 [facility] BMI Calculated 23.29 09/18/2013 [facility] Height 167.64 cm 09/18/2013 [facility] Weight 65.455 09/18/2013 [facility] Temperature Oral (F) 98.1 F 09/13/2013 [facility] Systolic (mm Hg) 104 09/13/2013 [facility] Diastolic (mm Hg) 62 09/13/2013 [facility] Diastolic (mm Hg) 50 09/13/2013 [facility] Systolic (mm Hg) 98 09/13/2013 [facility] Temperature Oral (F) 98.1 F 09/13/2013 [facility] Systolic (mm Hg) 110 09/13/2013 [facility] Diastolic (mm Hg) 64 09/13/2013 [facility] BMI Calculated 24.75 09/12/2013 [facility] Height 167.64 cm 09/12/2013 [facility] Weight 69.545 09/12/2013 [facility] Respitory Rate 18 09/12/2013 [facility] Temperature Oral (F) 98.2 F 09/12/2013 [facility] Heart Rate 100 09/12/2013 [facility] Temperature Oral (F) 97.9 F 09/10/2013 [facility] Heart Rate 72 09/10/2013 [facility] Respitory Rate 16 09/10/2013 [facility] Diastolic (mm Hg) 62 09/10/2013 [facility] Systolic (mm Hg) 111 09/10/2013 [facility] Temperature Oral (F) 97.9 F 09/10/2013 [facility] Heart Rate 92 09/10/2013 [facility] Respitory Rate 16 09/10/2013 [facility] Systolic (mm Hg) 114 09/10/2013 [facility] Diastolic (mm Hg) 66 09/10/2013 [facility] Systolic (mm Hg) 103 09/10/2013 [facility] Diastolic (mm Hg) 61 09/10/2013 [facility] Heart Rate 75 09/10/2013 [facility] Temperature Oral (F) 98.2 F 09/10/2013 [facility] Respitory Rate 18 09/10/2013 [facility] Weight 67.273 09/02/2013 [facility] BMI Calculated 23.94 09/02/2013 [facility] Height 167.64 cm 09/02/2013 [facility] Temperature Oral (F) 97.1 F 09/01/2013 [facility] Diastolic (mm Hg) 82 09/01/2013 [facility] Systolic (mm Hg) 129 09/01/2013 [facility] Respitory Rate 18 09/01/2013 [facility] Heart Rate 87 09/01/2013 [facility] Temperature Oral (F) 97.2 F 09/01/2013 [facility] Respitory Rate 18 09/01/2013 [facility] Systolic (mm Hg) 127 09/01/2013 [facility] Diastolic (mm Hg) 80 09/01/2013 [facility] Heart Rate 70 09/01/2013 [facility] Systolic (mm Hg) 138 09/01/2013 [facility] Diastolic (mm Hg) 96 09/01/2013 [facility] Respitory Rate 18 09/01/2013 [facility] Heart Rate 72 09/01/2013 [facility] Temperature Oral (F) 97.6 F 09/01/2013 [facility] Weight 63.636 09/01/2013 [facility] Systolic (mm Hg) 132 06/10/2013 [facility] Diastolic (mm Hg) 88 06/10/2013 [facility] Temperature Oral (F) 98.4 F 06/10/2013 [facility] Respitory Rate 18 06/10/2013 [facility] Heart Rate 74 06/10/2013 [facility] Respitory Rate 16 06/10/2013 [facility] Diastolic (mm Hg) 60 06/10/2013 [facility] Temperature Oral (F) 98.0 F 06/10/2013 [facility] Systolic (mm Hg) 104 06/10/2013 [facility] Heart Rate 77 06/10/2013 [facility] Respitory Rate 16 06/10/2013 [facility] Heart Rate 78 06/10/2013 [facility] Temperature Oral (F) 98.0 F 06/10/2013 [facility] Systolic (mm Hg) 107 06/10/2013 [facility] Diastolic (mm Hg) 62 06/10/2013 [facility] Weight 66.364 06/05/2013 [facility] Height 170.18 cm 06/05/2013 [facility] Respitory Rate 16 02/12/2013 [facility] Systolic (mm Hg) 114 02/12/2013 [facility] Diastolic (mm Hg) 75 02/12/2013 [facility] Heart Rate 82 02/12/2013 [facility] Respitory Rate 18 02/12/2013 [facility] Systolic (mm Hg) 124 02/12/2013 [facility] Diastolic (mm Hg) 70 02/12/2013 [facility] Heart Rate 82 02/12/2013 [facility] Systolic (mm Hg) 133 02/12/2013 [facility] Diastolic (mm Hg) 75 02/12/2013 [facility] Heart Rate 83 02/12/2013 [facility] Respitory Rate 18 02/12/2013 [facility] Weight 67.727 02/12/2013 [facility] Height 170.18 cm 02/12/2013 [facility] Temperature Oral (F) 98.8 F 02/12/2013 [facility] Weight 66.818 10/19/2012 [facility] Height 170.18 cm 10/19/2012 [facility] Weight 64.545 09/28/2012 [facility] Height 170.18 cm 09/28/2012 [facility] Temperature Oral (F) 97.9 F 08/11/2012 [facility] Heart Rate 71 08/11/2012 [facility] Diastolic (mm Hg) 74 08/11/2012 [facility] Respitory Rate 18 08/11/2012 [facility] Systolic (mm Hg) 109 08/11/2012 [facility] Heart Rate 73 08/11/2012 [facility] Diastolic (mm Hg) 60 08/11/2012 [facility] Systolic (mm Hg) 98 08/11/2012 [facility] Respitory Rate 18 08/11/2012 [facility] Temperature Oral (F) 97.9 F 08/11/2012 [facility] Diastolic (mm Hg) 55 08/11/2012 [facility] Heart Rate 64 08/11/2012 [facility] Respitory Rate 19 08/11/2012 [facility] Systolic (mm Hg) 87 08/11/2012 [facility] Temperature Oral (F) 97.6 F 08/11/2012 [facility] Weight 66.818 08/06/2012 [facility] Height 167.64 cm 08/06/2012 [facility] Height 167.64 cm 08/06/2012 [facility] Weight 66.818 08/06/2012 [facility] Diastolic (mm Hg) 70 07/19/2012 [facility] Heart Rate 92 07/19/2012 [facility] Systolic (mm Hg) 112 07/19/2012 [facility] Respitory Rate 18 07/19/2012 [facility] Temperature Oral (F) 97.4 F 07/19/2012 [facility] Diastolic (mm Hg) 76 07/19/2012 [facility] Systolic (mm Hg) 118 07/19/2012 [facility] Respitory Rate 18 07/19/2012 [facility] Heart Rate 104 07/19/2012 [facility] Temperature Oral (F) 97.8 F 07/19/2012 [facility] Systolic (mm Hg) 115 07/19/2012 [facility] Respitory Rate 18 07/19/2012 [facility] Temperature Oral (F) 97.5 F 07/19/2012 [facility] Diastolic (mm Hg) 71 07/19/2012 [facility] Heart Rate 86 07/19/2012 [facility] Height 167.64 cm 07/18/2012 [facility] Weight 66.364 07/18/2012 [facility] Weight 66.364 07/18/2012 [facility] Height 167.64 cm 07/18/2012 [facility] Height 170.18 cm 07/17/2012 [facility] Weight 66.364 07/17/2012 [facility] Weight 66.364 07/16/2012 [facility] Height 170.18 cm 07/16/2012 [facility] Diastolic (mm Hg) 73 07/11/2012 [facility] Systolic (mm Hg) 114 07/11/2012 [facility] Respitory Rate 17 07/11/2012 [facility] Heart Rate 101 07/11/2012 [facility] Temperature Oral (F) 97.7 F 07/11/2012 [facility] Diastolic (mm Hg) 82 07/11/2012 [facility] Temperature Oral (F) 97.9 F 07/11/2012 [facility] Respitory Rate 18 07/11/2012 [facility] Systolic (mm Hg) 124 07/11/2012 [facility] Heart Rate 79 07/11/2012 [facility] Diastolic (mm Hg) 73 07/11/2012 [facility] Temperature Oral (F) 97.7 F 07/11/2012 [facility] Respitory Rate 16 07/11/2012 [facility] Systolic (mm Hg) 112 07/11/2012 [facility] Heart Rate 92 07/11/2012 [facility] Height 170.18 cm 07/09/2012 [facility] Weight 66.818 07/09/2012 [facility] Weight 59.091 07/08/2012 [facility] Height 170.18 cm 07/07/2012 [facility] Weight 66.364 07/07/2012 [facility] Height 170.18 cm 05/31/2012 [facility] Weight 65.000 05/31/2012 [facility] Weight 61.818 04/08/2012 [facility] Height 167.64 cm 04/08/2012 [facility] Height 170.18 cm 02/16/2012 [facility] Weight 61.818 02/16/2012 [facility] Height 167.64 cm 01/25/2012 [facility] Weight 62.727 01/25/2012 [facility] Systolic (mm Hg) 110 01/02/2012 [facility] Heart Rate 60 01/02/2012 [facility] Diastolic (mm Hg) 82 01/02/2012 [facility] Respitory Rate 16 01/02/2012 [facility] Systolic (mm Hg) 142 01/02/2012 [facility] Diastolic (mm Hg) 73 01/02/2012 [facility] Respitory Rate 16 01/02/2012 [facility] Diastolic (mm Hg) 77 01/02/2012 [facility] Systolic (mm Hg) 113 01/02/2012 [facility] Respitory Rate 15 01/02/2012 [facility] Heart Rate 54 01/02/2012 [facility] Temperature Oral (F) 97.5 F 01/02/2012 [facility] Heart Rate 65 01/02/2012 [facility] Temperature Oral (F) 95.5 F 01/02/2012 [facility] Temperature Oral (F) 95.4 F 01/02/2012 [facility] Height 170.18 cm 12/31/2011 [facility] Weight 66.818 12/31/2011 [facility] Weight 66.875 12/31/2011 [facility] Weight 63.636 10/16/2011 [facility] Height 167.64 cm 10/16/2011 [facility] Systolic (mm Hg) 95 10/10/2011 [facility] Diastolic (mm Hg) 60 10/10/2011 [facility] Temperature Oral (F) 98.3 F 10/10/2011 [facility] Heart Rate 71 10/10/2011 [facility] Respitory Rate 16 10/10/2011 [facility] Respitory Rate 16 10/10/2011 [facility] Systolic (mm Hg) 109 10/10/2011 [facility] Temperature Oral (F) 97.6 F 10/10/2011 [facility] Heart Rate 52 10/10/2011 [facility] Diastolic (mm Hg) 71 10/10/2011 [facility] Heart Rate 47 10/10/2011 [facility] Respitory Rate 16 10/10/2011 [facility] Temperature Oral (F) 98.4 F 10/10/2011 [facility] Systolic (mm Hg) 104 10/10/2011 [facility] Diastolic (mm Hg) 62 10/10/2011 [facility] Height 170.18 cm 10/09/2011 [facility] Weight 62.727 10/09/2011 [facility] Encounters Location Location Details Encounter Type Encounter Number Reason For Visit Attending Provider ADM Date DC Date Status Source [facility] [id number] JAGDISH RIVERO 10/09/2011 10/10/2011 [facility] [id number] SHAJIGUERO BHATTEL 10/16/2011 10/16/2011 [facility] [id number] ANTONIO HERMINIA 12/30/2011 12/31/2011 [facility] [id number] ENAYET RAHIM 12/31/2011 01/02/2012 [facility] [id number] ASEM SOUMAN 01/24/2012 01/25/2012 [facility] [id number] ASEM SOUMAN 02/16/2012 02/16/2012 [facility] [place] [id number] 719.45 - JOINT PAIN-PELV TEO CONDON 03/07/2012 03/07/2012 Active [facility] [id number] RAMSES KOROMA 04/08/2012 04/08/2012 [facility] [id number] ANTONIO BETANCOURT 05/31/2012 05/31/2012 [facility] [id number] ANTONIO BETANCOURT 07/06/2012 07/07/2012 [facility] [id number] ROOSEVELT ALDRICH 07/08/2012 07/08/2012 [facility] [id number] URINARY RETENTION ENAYET RAHIM 07/10/2012 07/11/2012 [facility] [id number] RAMSES KOROMA 07/15/2012 07/16/2012 [facility] [id number] ENAYET RAHIM 07/17/2012 07/19/2012 [facility] [id number] ABDOMINAL PAIN ENAYET RAHIM 08/07/2012 08/11/2012 Active [facility] Emergency [id number] RENÉE RIOS 09/27/2012 09/28/2012 Active [facility] [id number] OVERDOSE ARI CHURCH 10/19/2012 10/19/2012 [facility] [id number] CHRISTION RICE 02/11/2013 02/12/2013 Discharged [facility] Inpatient [id number] ASTHMATIC BRONCHI TIS ENAYET RAHIM 06/06/2013 06/10/2013 Active [facility] [id number] 41 Antonio Riojas 09/01/2013 09/01/2013 [facility] Inpatient [id number] Enayet Rahim 09/02/2013 09/10/2013 [facility] [id number] 43 Antonio Herminia 09/12/2013 09/13/2013 [facility] Inpatient [id number] Enayet Rahim 09/18/2013 09/24/2013 [facility] [place] [facility] Di[facility] Services [id number] Enayet Rahim 12/05/2013 12/06/2013 [facility] [id number] 44 Antonio Trane 12/07/2013 12/07/2013 [facility] Inpatient [id number] Enayet Rahim 12/12/2013 2013 [facility] [id number] 45 Prasad Roslyn 02/09/2014 02/09/2014 [facility] Inpatient [id number] Morgan Ochoa 09/14/2014 09/30/2014 [facility] [id number] Yanet Sarah 03/21/2015 03/21/2015 [facility] Emergency [id number] Roosevelt Aldrich 03/03/2016 03/03/2016 [facility] Emergency [id number] Yanet Sarah 04/05/2016 04/06/2016 [facility] Observation [id number] Nathalia Verdin 04/12/2016 04/12/2016 [facility] Inpatient [id number] Juan Pablo Garza 04/29/2016 05/11/2016 [facility] Observation [id number] Ezekiel Márquez 07/13/2016 07/13/2016 [facility] Emergency [id number] Wei Liang 08/05/2016 08/05/2016 [facility] OD [id number] 789.00 - ABDMNAL PAIN UN ENAYET RAHIM Cancel [facility] [place] Procedures Procedure Code Date Perfomer Comments Source Biopsy of liver [id number] 05/15/2011 [facility] Gastric bypass operation 03395 011 [facility] Abdominal hysterectomy [id number] 14 [facility] Hernia repair [id number] [facility] Back fusion [id number] [facility] Internal and external hemorrhoidectomy a nd anal fissurectomy [id number] [facility] Cholecystectomy [id number] [facility] Foot joint operations [id number] [facility] Tonsil operation [id number] [facility] Abdominal hysterectomy 7302475 05 [facility] Back fusion [id number] [facility] Cholecystectomy 82782928 [facility] Gastric bypass operation 42304 003 [facility] Hernia repair [id number] [facility] Internal and external hemorrhoidectomy a nd anal fissurectomy [id number] [facility] Hysterectomy [id number] [facility] Assessment and Plan Assessment and Plan Date Source Extracted from:Title: Clinical Document Author: Tulio Nguyen MD Date: 05/10/16 Progress Note - Daily [facility] Completed: Apr, 14:41 by Tulio [...] PO Bedtime 05/09/16 enoxaparin 30 mg SUB-Q [id number] 04/30/16 fentaNYL 1 patch TOP Q72H 04/30/16 [...] TID 05/06/16 hydromorphone (Dilaudid) 1 mg 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 4 mg [...] CONTINUE HOME MEDS FOLLOW GI RECOMMENDATIONS 04/12/2016 [facility] Extracted from:Title: Clinical Document Author: Nato Covarrubias MD Date: 09/29/14 [facility] Daily Progress Note [facility] Nato Covarrubias MD SUBJECTIVE: pt [...] diet. Monitor BG pt is accepted at [facility] await transfer MEDICATIONS Scheduled Meds (7):amitriptyline, citalopram [...] with 0.45% NaCl IV 1,000 mL 09/30/2014 [facility] Extracted from:Title: Clinical Document Author: Rafa Garcia MD Date: 12/16/13 GASTROENTEROLOGY FOLLOW-UP NOTE Ju Garcia M.D. [facility] SUBJECTIVE: No acute events reported [...] normal (patient reports that she has been [id number] in the past). B12 supplementation per primary team. Elevated LFTs: elevated but stable. Has had detailed work-up within the last 6 months. Will need outpatient follow-up and possibly a Hepatology evaluation in the [facility]. We will follow the patient with you. Please call us with any questions. Ju Garcia M.D. [facility] 2013 [facility] Extracted from:Title: Clinical Document Author: Chitra Collins MD Date: 09/23/13 Progress Note - Daily [facility] SUBJECTIVE: pt with post-surgical discomfort [...] IV (Dextrose 50% Syringe), LORazepam (Ativan), acetaminophen-hydrocodone (Wilber 5/325 oral tablet), acetaminophen, docusate, hydrOXYzine, hydromorphone [...] me with any questions or concerns. 09/24/2013 [facility] Extracted from:Title: Clinical Document Author: Corey Bolaños MD Date: 09/10/13 Progress Daily [facility] Completed: Aug, 05:35 by Corey Bolaños MD RM: 429 - 1P, SE C4B LOGAN LEIVA 37y (: 1975) F Attending: Corey Bolaños MD Service: Internal Medicine Reason for Admission: INTRACTABLE VOMITING, ELEVATED LIVER ENZYMES Working DRG: Esophagitis, gastroent and misc digest disorders w/o [facility] Code status: None Specified=FULL CODE Current diet: [...] HC 25 mg rectal suppository) 1 appl [place] BID 09/08/13 metoclopramide (Reglan 10 mg or [...] ml/hr 09/07/13 promethazine (Phenergan) 12.5 m g TX Q4H 09/09/13 promethazine (Phenergan) 25 mg TX Q4H 09/02/13 sodium chloride (Saline Flush 0 .9%) 5 ml IVP PRN One Time Meds: None Continuous Infusions (1): 09/04/13 Dextrose 5% with 0.9% NaCl IV 1 ,000 mL (D5NS 1,000 mL) 1,000 mL 125 ml/hr 09/10/2013 [facility] Plan of Care No Data Provided for This Section Social History Social History Date Source Social History TypeResponse Alcohol Last use: none. Previous treatment: None. Smoking Status Current every day smoker; Type: Cigarettes; Tobacco use per day: 3; Exposure to Tobacco Smoke None; Cigarette Smoking Last 365 Days Yes; Reg Smoking Cessation Counseling No 09/03/2013 [facility] Social History TypeResponse Alcohol Previous treatment: [...]
--- OUTSIDE RECORDS SUMMARY | 2019-10-18 01:06 | XMS REPORT | Continuity of Care Document ---
Author Author [facility] t Organization [facility] Address [address] [place] [address] Phone Unavailable Care Team Providers Care Wildlife Officer Name Role Phone NONSTAFF PCP Unavailable Savana LOCKWOOD Attphys Unavailable Savana CASTILLO Attphys Unavailable SIMA BAUTISTA Attphys Unavailable BRENNAN SOUSA Attphys Unavailable Aayush CAMPOS Attphys Unavailable Jt Liang Attphys Kojo Márquez Attphys Carri Garza Attphys Irvin Verdin Attphys Yelena Smith Attphys Sergo Stallworth Attphys Morgan Ochoa Attphys Prasad Mcgowan Attphys Corey Bolaños Attphys Deni Riojas Attphys Morgan Hope Attphys Kojo Márquez Admphys Carri Garza Juan Pablo Admphys Irvin Vedrin Admphys Morgan Ochoa Admphys Corey Bolaños Admphys Payers Payer Name Policy Type Policy Number Effective Date Expiration Date [employer] [id number] 2019 00:00:00 [facility] Problems Condition Name Condition Details Condition Category Status Onset Date Resolution Date Last Treatment Date Treating Clinician Comments Source 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 Disease Active 2016-09-23 00:00:00 Juan Carlos Hinduism Contusion of left wrist Contusion of left wrist Disease Active 2016-09-23 00:00:[address] Left wrist pain Left wrist pain Disease Active 2016-09-23 00:00:00 Juan Carlos Hinduism Left hand pain Left hand pain Disease Active 2016-09-23 00:00:00 Juan Carlos Micheleist ALLERGIC REACTION CARL RGIC REACTION Active 08/05/2016 [facility] Diagnosis Active 2016-08-05 00:00:00 2016-08-05 04:01:00 [facility] FEVER FEVE R Active 07/13/2016 [facility] Active 2016-07-13 00:00:00 2016-07-13 10:22:00 [facility] DIVERTICULITIS DIVE RTICULITIS Active 07/13/2016 [facility] Diagnosis Active 2016-07-13 00:00:00 2016-08-05 16:05:00 [facility] ABD PAIN ABD PAIN Active 04/29/2016 [facility] Diagnosis Active 2016-04-29 00:00:00 2016-04-29 18:31:00 [facility] ABDOMINAL PAIN ABDO MARIE PAIN Active 04/29/2016 [facility] Diagnosis Active 2016-04-29 00:00:00 2016-05-03 10:33:00 [facility] Enteritis Enteritis Disease Active 2016-04-14 00:00:00 [facility] INTRACTABOLE ABDOMINAL PAIN IN TRACTABOLE ABDOMINAL PAIN Active 04/11/2016 [facility] Diagnosis Active 2016-04-11 00:00:00 2016-04-12 13:07:00 [facility] SIDE PAIN SIDE PAIN Active 04/11/2016 [facility] Diagnosis Active 2016-04-11 00:00:00 2016-04-12 01:03:00 [facility] CT SCAN, DR SENT CT S CAN, DR SENT Active 04/05/2016 [facility] Diagnosis Active 2016-04-05 00:00:00 2016-05-25 09:18:00 [facility] DOC SEND DOC SEND Active 03/02/2016 [facility] Diagnosis Active 2016-03-02 00:00:00 2016-04-26 14:30:00 [facility] ARM INJURY ARM INJURY Active 03/20/2015 [facility] Diagnosis Active 2015-03-20 00:00:00 2015-03-20 21:29:00 [facility] Shortness of breath Shortness of breath Disease Active 2014-11-10 00:00 [facility] Nausea & vomiting Nausea & vomiting Disease Active 2014-10-21 00:00:00 [facility] Acute abdominal pain Acute abdominal pain Disease Active 00:00:00 [facility] Elevated LFTs Elevated LFTs Disease Active 2014-09-30 00:00:00 [facility] INTRACTABLE NAUSEA AND VOMITING INTRACTABLE NAUSEA AND VOMITING Active 09/13/2014 [facility] Diagnosis Active 2014-09-13 00:0 0:00 2014-09-22 14:10:00 [facility] FOOT PAIN FOOT PAIN Active 02/09/2014 [facility] Active 2014-02-09 00:00:00 2014-02-09 10:47:00 [facility] VOMITING,NAUSEA VOMI TING,NAUSEA Active 12/10/2013 [facility] Diagnosis Active 2013-12-10 00:00:00 2013-12-11 08:45:00 [facility] NAUSEA AND VOMITING NAUS EA AND VOMITING Active 12/10/2013 [facility] Diagnosis Active 2013-12-10 00:00:00 2013-12-20 22:03:[address] [facility] [address] [facility] Batista ENT Active 12/06/2013 [facility] Active 2013-12-06 00:00:00 2013-12-06 23:55:00 [facility] VOMITING VOMI TING Active 09/01/2013 [facility] Diagnosis Active 2013-09-01 00:00:00 2013-09-02 01:08:00 [facility] INTRACTABLE VOMITING, ELEVATED LIVER ENZ INTRACTABLE VOMITING, ELEVATED LIVER ENZ Active 09/01/2013 [facility] A ctive 2013-09-01 00:00:00 2013-09-05 13:40:00 [facility] VOMITING/ABD PAIN/SWELLING ABD VOMITING/ABD PAIN/SWELLING ABD Active 08/31/2013 [facility] Ac tive 2013-08-31 12:00:00 2013-09-01 00:59:00 [facility] BLOATING/GASTRIC PAIN/NAUSEA/PIPER/VOMITING BLOATING/GASTRIC PAIN/NAUSEA/PIPER/VOMITING Active 08/29/2013 [facility] Active 2013-08-29 00:00:00 2013-10-03 15:33:00 [facility] SOB SOB Active 06/05/2013 [facility] Active 2013-06-05 00:00:00 2013-06-05 13:29:00 [facility] ASTHMATIC BRONCHITIS ASTH MATIC BRONCHITIS Active 06/05/2013 [facility] Active 2013-06-05 00:00:00 2013-06-19 13:07:00 [facility] CHEST AND ARM COMPLAINTS CHES T AND ARM COMPLAINTS Active 02/11/2013 [facility] Diagnosis Active 2013-02-11 20:00:00 2013-02-11 22:43:00 [facility] OVERDOSE OVER DOSE Active 10/19/2012 [facility] Active 2012-10-19 00:00:00 2013-02-11 22:40:00 [facility] SEIZURES SEIZ URES Active 09/27/2012 [facility] Diagnosis Active 2012-09-27 00:00:00 2012-09-28 14:55:00 [facility] RENAL COLIC, ABDOMINAL PAIN, DEHYDRATION RENAL COLIC, ABDOMINAL PAIN, DEHYDRATION Active 08/06/2012 [facility] Diagnosis Ac tive 2012-08-06 14:01:00 2012-08-06 15:24:00 [facility] SEIZURE SEIZ URE Active 07/17/2012 [facility] [...] - ABDMNAL PAIN UN Active 06/29/2012 [facility] [place] Diagnosis Active 2012-06-29 00:01:00 2012-09-17 18:44:00 [facility] FALL FALL Active 05/31/2012 [facility] Active 2012-05-31 07:00:00 2012-05-31 08:10:00 [facility] Shaun 719.45 - JOINT PAIN-PELV 719. 45 - JOINT PAIN-PELV Active 03/06/2012 [facility] [place] Diagnosis Active 2012-03-06 00:01:00 2012-03-13 13:09:00 [facility] Abdominal pain Abdominal pain Problem Active [facility] Urinary tract infection UTI (urinary tract infection) Problem Active [facility] Vomiting Vomiting Problem Active [facility] Failure of outpatient treatment Problem Active [facility] Sepsis Problem Active [facility] Gastroenteritis Problem Active [facility] Dehydration Problem Active [facility] Hypokalemia Problem Active [facility] Rhabdomyolysis Problem Active [facility] Acute electrocardiography changes Problem Active [facility] Migraine headache Problem Active [facility] Kidney infection Kidn ey infection Resolved Problem 02/14/2013 [facility] Problem Resolved 2013-02-14 21:34:34 [facility] Malabsorption Le bsorption Resolved Problem 02/14/2013 [facility] Problem Resolved 2013-02-14 21:34:34 [facility] Cancer Canc er Resolved Problem 02/14/2013 1cervical [facility] Problem Resolved 2013-02-14 21:34: 34 [facility] bipolar(Confirmed) bipo lar(Confirmed) Resolved Problem 02/11/2014 [facility] 2014-02-11 22:54:35 [facility] Malignant neoplasm, primary (morphologic abnormality) Malignant neoplasm, primary (morphologic abnormality) Resolved Problem 03/05/2016 [facility] 2016-03-05 04:12:17 [facility] high cholesterol(Confirmed) hi gh cholesterol(Confirmed) Resolved Problem 02/11/2014 [facility]olved 2014-02-11 22:54:35 [facility] cerv cancer(Confirmed) hx c erv cancer(Confirmed) Resolved Problem 02/11/2014 [facility]olved 2014-02-11 22:54:35 [facility] hx gastric bypass(Confirmed) h x gastric bypass(Confirmed) Resolved Problem 02/11/2014 [facility] 2014-02-11 22:54:35 [facility] hypoglycemia(Confirmed) hypo glycemia(Confirmed) Resolved Problem 02/11/2014 [facility] 2014-02-11 22:54:35 [facility] Infectious disorder of kidney (disorder) Infectious disorder of kidney (disorder) Resolved Problem 08/08/2016 [facility] Problem Resolved 2016-08-08 03:04:37 [facility] Lumbar Fusion L3 S1(Confirmed) Lumbar Fusion L3 S1(Confirmed) Resolved Problem 02/11/2014 MICHAEL Lucas [facility] Problem Resolved 2014-02-11 22:54:35 [facility] [place] lumbar fusion surgery(Confirmed) lumbar fusion surgery(Confirmed) Resolved Problem 02/11/2014 MICHAEL Lucas [facility] Problem Resolved 2014-02-11 22:54:35 [facility] Malabsorption syndrome (disorder) Malabsorption syndrome (disorder) Resolved Problem 08/08/2016 MICHAEL Lucas [facility] Problem Resolved 2016-08-08 03:04:37 [facility] [place] bipolar bipo lar Resolved Problem 06/12/2013 [facility] Problem Resolved 2013-06-12 22:04:00 [facility] high cholesterol high cholesterol Resolved Problem 06/12/2013 [facility] Problem Resolved 2013-06-12 22:04:00 [facility] hx cerv cancer hx c erv cancer Resolved Problem 06/12/2013 [facility] Problem Resolved 2013-06-12 22:04:00 [facility] hx gastric bypass hx g astric bypass Resolved Problem 06/12/2013 [facility] Problem Resolved 2013-06-12 22:04:00 [facility] hypoglycemia hypo glycemia Resolved Problem 06/12/2013 [facility] Problem Resolved 2013-06-12 22:04:00 [facility] Lumbar Fusion L3 S1 Lumb ar Fusion L3 S1 Resolved Problem 06/12/2013 [facility] Problem Resolved 2013-06-12 22:04: 00 [facility] lumbar fusion surgery lumb ar fusion surgery Resolved Problem 06/12/2013 [facility] Problem Resolved 2013-06-12 22:04: 00 [facility] Polycystic ovaries (disorder) Polycystic ovaries (disorder) Resolved Problem 08/08/2016 [facility] Problem Resolved 2016-08-08 03:04:37 [facility] Carcinoma of cervix (disorder) Carcinoma of cervix (disorder) Resolved Problem 08/08/2016 [facility] Problem Resolved 2016-08-08 03:04:37 [facility] Crohn's disease (disorder) 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) Resolved Problem 08/08/2016 [facility] Problem Resolved 2016-08-08 03:04:37 [facility] History of bypass of stomach (situation) History of bypass of stomach (situation) Resolved Problem 08/08/2016 [facility] Problem Resolved 2016-08-08 03:04:37 [facility] Hypoglycemia (disorder) Hypo glycemia (disorder) Resolved Problem 08/08/2016 [facility] Problem Resolved 2016-08-08 03:04: 37 [facility] Systemic lupus erythematosus (disorder) Systemic lupus erythematosus (disorder) Resolved Problem 08/08/2016 [facility] Problem Resolved 2016-08-08 03:04:37 [facility] Mechanical complication of internal orth opedic device, implant AND/OR graft (disorder) Mechanical compl ication of internal orthopedic device, implant AND/OR graft (disorder) Resolved Problem 08/08/2016 [facility] Problem Resolved 2016-08-08 03:04:37 [facility] Abdominal pain Abdo marie pain Active Problem 02/14/2013 [facility] Problem Active 2013-02-14 21:34:34 [facility] Anxiety Anxi ety Active Problem 02/14/2013 [facility] Problem Active 2013-02-14 21:34:34 [facility] Cancer of cervix Canc er of cervix Active Problem 02/14/2013 [facility] Problem Active 2013-02-14 21:34:34 [facility] Depression Depr ession Active Problem 02/14/2013 [facility] Problem Active 2013-02-14 21:34:34 [facility] Female genital organ symptoms Female genital organ symptoms Active Problem 02/14/2013 2CANCELLED [facility] Problem Active 2013-02-14 21:34:34 [facility] Gastric bypass operation Lucas cecy bypass operation Active Problem 02/14/2013 [facility] Problem Active 2013-02-14 21:34:34 Kiesha Dunn Laparoscopic procedure [place] roscopic procedure Active Problem 02/14/2013 [facility] Problem Active 2013-02-14 21:34:34 Kiesha ial [facility] Lumbar puncture headache Lumb ar puncture headache Active Problem 10/18/2011 [facility] Problem Active 2011-10-18 08:21:1 3 [facility] Lysis of adhesions Lysi s of adhesions Active Problem 02/14/2013 [facility] Problem Active 2013-02-14 21:34:34 [facility] Migraine Migr chito Active Problem 02/14/2013 [facility] Problem Active 2013-02-14 21:34:34 [facility] Sinusitis Sinu sitis Active Problem 02/14/2013 [facility] Problem Active 2013-02-14 21:34:34 [facility] Ulcer Ulce r Active Problem 02/14/2013 [facility] Problem Active 2013-02-14 21:34:34 [facility] Lumbar puncture headache Lumb ar puncture headache Active Problem 02/14/2013 [facility] Problem Active 2013-02-14 21:34:34 [facility] jamal [facility] Anxiety (finding) Anxi ety (finding) Active Problem 08/08/2016 MICHAEL Lucas [facility] Problem Active 2016-08-08 03:04:37 [facility] Malignant tumor of cervix (disorder) Malignant tumor of cervix (disorder) Active Problem 08/08/2016 MICHAEL Lucas [facility] Problem Active 2016-08-08 03:04:37 Memor iasavana [facility] Depressive disorder (disorder) Depressive disorder (disorder) Active Problem 08/08/2016 MICHAEL Lucas [facility] Problem Active 2016-08-08 03:04:37 [facility] Female genital organ symptoms (finding) Female genital organ symptoms (finding) Active Problem 08/08/2016 CANCELLED MICHAEL Lucas [facility] Problem Active 2016-08-08 03:04:37 Jorje riasavana Dunn Esophagogastrostomy, antesternal or antethoracic (proc edure) Esophagogastrostomy, antesternal or antethoracic (procedure) Active Problem 08/08/2016 MICHAEL Lucas [facility] Problem Active 2016-08-08 03:04:37 [facility] Laparoscopic-assisted procedure (procedure) Laparoscopic-assisted procedure (procedure) Active Problem 08/08/2016 MICHAEL Lucas [facility] Problem Active 2016-08-08 03:04:3 7 [facility] Headache following lumbar puncture (disorder) Headache following lumbar puncture (disorder) Active Problem 08/08/2016 MICHAEL Lucas [facility] Problem Active 2016-08-08 03:04:37 [facility] [place] Lysis of adhesions (procedure) Lysis of adhesions (procedure) Active Problem 08/08/2016 NERI Lucas [facility] Problem Active 2016-08-08 03:04:37 [facility] [place] Sinusitis (disorder) Sinu sitis (disorder) Active Problem 08/08/2016 MICHAEL Lucas [facility] Problem Active 2016-08-08 03:04:37 [facility] [place] Ulcer (morphologic abnormality) Ulcer (morphologic abnormality) Active Problem 03/05/2016 MICHAEL Lucas [facility] Problem Active 2016-03-05 04:12:17 [facility] Biopsy of liver (procedure) Bi opsy of liver (procedure) Active Problem 08/08/2016 MICHAEL Lucas [facility] Problem Active 2016-08-08 03:04:37 [facility] [place] Endometriosis (disorder) Endo metriosis (disorder) Active Problem 08/08/2016 [facility] Problem Active 2016-08-08 03:04:3 7 [facility] [place] SYNCOPE AND COLLAPSE SYNC OPE AND COLLAPSE Active [facility] Diagnosis Active 2011-10-09 13:27:00 [facility] [place] ANEMIA NOS ANEM IA NOS Active [facility] Active 2011-10-09 13:27:00 [facility] RETENTION OF URINE NOS RETE NTION OF URINE NOS Active [facility] Active 2012-07-17 21:43:00 [facility] BRONCHITIS NOS BRON CHITIS NOS Active [facility] Active 2013-06-19 13:07:00 [facility] VOMITING ALONE VOMI TING ALONE Active [facility] Active 2013-09-05 13:40:00 [facility] NAUSEA WITH VOMITING NAUS EA WITH VOMITING Active [facility] Active 2014-09-22 14:10:00 [facility] [place] UNSPECIFIED ABDOMINAL PAIN UNS PECIFIED ABDOMINAL PAIN Active [facility] Active 2016-05-03 10:33:00 [facility] [place] Urticaria, unspecified Urti caria, unspecified 08/05/2016 08/08/2016 [facility] Problem 2016-08-05 05:00:00 2016 03:04:37 2016-08-08 03:04:37 [facility] Unspecified abdominal pain Uns pecified abdominal pain 07/13/2016 07/16/2016 [facility] Problem 2016-07-13 06:0 0:00 2016-07-16 04:19:15 2016-07-16 04:19:15 [facility] Pain in unspecified joint Pain in unspecified joint 07/13/2016 07/16/2016 [facility] Problem 2016-07-13 06:00:00 2016 04:19:15 2016-07-16 04:19:15 [facility] [place] Discharge Diagnosis: Abdominal pain Discharge Diagnosis: Abdominal pain 04/06/2016 04/09/2016 [facility] Problem 2016-04-06 06:00:00 2016-04-09 03:49:42 2016-04-09 03:49:42 [facility] Discharge Diagnosis: Acute pyelonephritis Discharge Diagnosis: Acute pyelonephritis 03/02/2016 03/05/2016 [facility] Problem 2016-03-02 05:00:00 2016-03-05 04:12:17 2016-03-05 04:12:17 [facility] Discharge Diagnosis: Contusion of left upper arm, init ial encounter Discharge Diagnosis: Contusion of left upper arm, initial encounter 03/20/2015 03/23/2015 [facility] Problem 2015-03-20 06:0 0:00 2015-03-23 05:57:21 2015-03-23 05:57:21 [facility] Discharge Diagnosis: Transaminitis Discharge Diagnosis: Transaminitis 09/14/2014 10/03/2014 [facility] Problem 2014-09-14 05:00:00 2014-10-03 00:38:24 2014-10-03 00:38:24 [facility] Discharge Diagnosis: Abdominal pain in female patient Discharge Diagnosis: Abdominal pain in female patient 09/14/2014 10/03/2014 [facility] Problem 2014-09-14 05:00:00 2014-10-03 00:38:24 2014-09 00:38:24 [facility] Discharge Diagnosis: Contusion of foot, left Discharge Diagnosis: Contusion of foot, left 02/09/2014 02/11/2014 [facility] Problem 2014-02-09 05:00:00 2014-02-11 22:54:35 2014-02-11 22:54:35 [facility] Discharge Diagnosis: Pain in left foot Discharge Diagnosis: Pain in left foot 02/09/2014 02/11/2014 [facility] Problem 2014-02-09 05:00:00 2014-02-11 22:54:35 2014-02-11 22:54:35 [facility] Discharge Diagnosis: Headache Discharge Diagnosis: Headache 12/07/2013 12/09/2013 [facility] Problem 12-07 05:00:00 2013-12-09 21:48:24 2013-12-09 21:48:24 [facility] Discharge Diagnosis: Abdominal pain Discharge Diagnosis: Abdominal pain 09/13/2013 09/15/2013 [facility] Problem 2013-09-13 05:00:00 2013-09-15 23:04:40 2013-09-15 23:04:40 [facility] [place] Discharge Diagnosis: Elevated liver function tests Discharge Diagnosis: Elevated liver function tests 09/02/2013 09/12/2013 [facility] Problem 2013-09-02 05:00:00 2013-09-12 21:10:33 2013-09 21:10:33 [facility] [place] Discharge Diagnosis: abdominal pain/elevated lft's Discharge Diagnosis: abdominal pain/elevated lft's 09/01/2013 09/03/2013 [facility] Problem 2013-09-01 05:00:00 2013-09-03 20:24:25 2013-08 20:24:25 [facility] Allergies, Adverse Reactions, Alerts Allergy Name Allergy Type Status Severity Reaction(s) Onset Date Inacti ve Date Treating Clinician Comments Source iodine Allergy to substance Active Moderate hives 2019-05-19 00:00:00 [facility] clavulanic acid Allergy to substance Active Moderate hives 202 00:00:00 [facility] Amoxicillin Allergy to substance Active Moderate hives 2019-05-19 00: 00:00 [facility] Shellfish Derived Propensity to adverse reactions to [...] reactions Active 2014-09-30 00:00:00 Severe itching, rash [facility] Morphine Drug Allergy Active Itching 2014-09-30 00:00:00 Pt states her arm get red [facility] Adhesive Tape Propensity to adverse reactions Active 20 26-09-18 00:00:00 [facility] peels off [facility] aspirin aspirin Active [facility] Augmentin Augmentin Active Jorje rial Sha[facility] Food MSG Food MSG Active Memori al [facility] Imitrex Imitrex Active [facility] iodine iodine Active [facility] ermann Iron (Ferrous Sulfate) Iron (Ferrous Sulfate) Active [facility] Paper Tape Paper Tape Active [facility] [place] shellfish shellfish Active Jorje [facility] Latex Latex Active [facility] ermann Social History Social Habit Start Date Stop Date Quantity Comments Source Sex Assigned At [facility] Alcohol intake 2017-02-17 00:00:00 2017-02-17 00:00:00 Current non-drinker of alcohol (finding) Juan Carlos Woodall Cigarettes smoked current (pack per day) - Reported 00:00:00 2016-04-26 00:00:00 [facility] Cigarette pack-years 2016-04-26 00:00:00 2016-04-26 00:00:00 [facility] Tobacco Comment 2014-10-03 00:00:00 2014-10-03 00:00:00 patient states quit smoking on admission to the hospital [facility] History of tobacco use 2014-09-30 00:00:00 Current smoker [facility] Social History 2013-09-03 00:31:12 2013-09-03 00:31:12 [facility] Smoking Status Start Date Stop Date Source Current every day smoker 2017-02-17 00:00:00 Clara Woodall Former smoker 2016-04-26 00:00:00 2016-04-26 00:00:00 [facility] Medications Ordered Medication Name Filled Medication Name Start Date Stop Da te Current Medication? Ordering Clinician Indication Dosage Frequency Signature (SIG) Comments Components Source Cyclobenzaprine Hcl (Flexeril) 5 Mg TABLET Cyclobenzap rine Hcl (Flexeril) 5 Mg TABLET 2019-07-25 17:52:00 Yes 10 Three Times A Day for Pain [facility] mesalamine (PENTASA) 500 MG CR capsule 2017-02-15 18:15:15 Yes 1000mg [id number] Take 1,000 mg by mouth 3 (three) [...] Woodall DIAZEPAM ORAL 2017-02-15 18:15:15 Yes 10mg [id number] Take 10 mg by mouth 3 (three) [...] 300 mg capsule 2017-02-15 18:15:15 Yes 300mg [id number] Take 300 mg by mouth 3 (three) times a day. Juan Carlos Woodall TiZANidine (ZANAFLEX) 4 MG capsule 2017-02-15 18:15:15 Y es 4mg Q.[id number] Take 4 mg by mouth 3 (three) [...] allergic reaction, # 1 kit, 0 [facility] Pred[facility]one 50 MG Oral Tablet 2016-08-05 10:12:00 Yes 50 mg = 1 tab, PO, Daily, X 5 day, # 5 tab, 0 Refill(s) [facility] Famotidine 20 MG Oral Tablet 2016-08-05 10:12:00 Yes 20 mg = 1 tab, PO, BID, # 28 tab, 0 Refill(s) [facility] Hydroxyzine Hydrochloride 25 MG Oral Tablet 2016-08-05 10:11:00 Yes 25 mg = 1 tab, PO, QID, X 14 day, # 56 tab, 0 Refill(s) [facility] Diphenhydramine 2016-08-05 08:06:00 No 50 mg, Route: IM, ONCE, Dosing Weight 68.636, kg, Priority: STAT, Start date: 08/05/16 3:06:00 CDT, Stop date: 08/05/16 3:06:00 CDT [facility] kirsten Famotidine 2016-08-05 08:06:00 No 20 mg, Route: PO, ONCE, Dosing Weight 68.636, kg, Priority: STAT, Start date: 08/05/16 3:06:00 CDT, Stop date: 08/05/16 3:06:00 CDT [facility] methylPREDNISolone SODium SUCCinate 2016-08-05 08:06:00 No 125 mg, Route: IM, ONCE, Dosing Weight 68.636, kg, Priority: STAT, Start date: 08/05/16 3:06:00 CDT, Stop date: 08/05/16 3:06:00 CDT [facility] Phenergan 2016-07-13 17:25:00 No Notes: Do not give IV push. (Same as: Phenergan) [facility] Phenergan 2016-07-13 17:16:00 No 12.5 mg, Route: IVPB, ONCE, Dosing Weight 65, kg, PRN Nausea & Vomiting, Start date: 07/13/16 11:16:00 SPREAD CUTTER [facility] Fentanyl 2016-07-13 17:16:00 No 50 microgram, Route: IV, ONCE, Dosing Weight 65, kg, Start date: 07/13/16 11:16:00 SPREAD CUTTER, Stop date: 07/13/16 11:16:00 SPREAD CUTTER [facility] Acetaminophen 325 MG / Hydrocodone Bitartrate 5 MG Oral Tabl et [Wren 5/325] 2016-07-13 16:37:00 Yes 1 tab, PO, Q4H, PRN for pain, X 5 day, # 24 tab, 0 Refill(s) [facility] Cipro 2016-07-13 16:18:00 No 400 mg, Route: IVPB, ONCE, Dosing Weight 65, kg, Priority: STAT, Start date: 07/13/16 10:18:00 SPREAD CUTTER, Stop date: 07/13/16 10:18:00 SPREAD CUTTER [facility] Flagyl 2016-07-13 16:18:00 No 500 mg, Route: IVPB, ONCE, Dosing Weight 65, kg, Priority: STAT, Start date: 07/13/16 10:18:00 SPREAD CUTTER, Stop date: 07/13/16 10:18:00 SPREAD CUTTER [facility] Acetaminophen 325 MG / Hydrocodone Bitartrate 5 MG Oral Tabl et [Wren 5/325] 2016-07-13 15:51:00 No 1 tab, Route: PO, Drug Form: TAB, Dosing Weight 65, kg, ONCE, STAT, Start date: 07/13/16 9:51:00 SPREAD CUTTER, Stop date: 07/13/16 9:51:00 SPREAD CUTTER [facility] Fentanyl 2016-07-13 13:59:00 No 50 microgram, Route: IVP, ONCE, Dosing Weight 65, kg, Priority: STAT, Start date: 07/13/16 7:59:00 SPREAD CUTTER, Stop date: 07/13/16 7:59:00 SPREAD CUTTER [facility] Fentanyl 2016-07-13 12:08:00 No Notes: (Same as: Sublimaze) Preservative free. [facility] Phenergan 2016-07-13 12:07:00 No Notes: Do not give IV push. (Same as: Phenergan) [facility] Zofran 2016-07-13 11:28:00 No 4 mg, Route: IVP, Drug form: INJ, ONCE, Dosing Weight 65, kg, Priority: STAT, Start date: 07/13/16 5:28:00 SPREAD CUTTER, Stop date: 07/13/16 5:28:00 SPREAD CUTTER Roger Dunn Morphine 2016-07-13 11:28:00 No 4 mg, Route: IVP, ONCE, Dosing Weight 65, kg, Priority: STAT, Start date: 07/13/16 5:28:00 SPREAD CUTTER, Stop date: 07/13/16 5:28:00 SPREAD CUTTER [facility] Shaun Sodium Chloride 0.154 MEQ/ML Injectable Solution 2016-07-13 11:2 8:00 No 1,000 mL, 1,000 ml/hr, Infus e Over: 1 hr, Route: IV, 1,000, Drug form: INJ, ONCE, Priority: STAT, Dosing Weight 65 kg, Start date: 07/13/16 5:28:00 SPREAD CUTTER, Duration: 1 doses or times, Stop date: 07/13/16 5:28:00 SPREAD CUTTER [facility] gabapentin 300 MG Oral Capsule 2016-07-13 10:10:00 Yes 300 mg = 1 cap, PO, TID, # 90 cap, 0 Refill(s) Jorje fan Shaun mesalamine 500 MG Extended Release Capsule [Pentasa] 2 10:08:00 Yes 500 mg = 1 cap, PO, QID, # 120 cap, 0 Re fill(s) Roger Shaun Acetaminophen 300 MG / Codeine Phosphate 30 MG Oral Tablet [Tylenol with Codeine #3] 2016-05-10 23:41:00 Yes 1 - 2 tab, PO, Q4H, PRN Pain, X 2 week, # 30 tab, 2 Refill(s) [facility] [place] Enoxaparin 2016-05-10 04:00:00 No Notes: (S bhumi as: Lovenox) [facility] [place] [facility] Hydromorphone 2016-05-09 16:00:00 No 0.5 mg, 0.5 mL, Route: IVP, Drug form: INJ, Q5Min, Dosing Weight 68.835, kg, PRN Pain Score 7-10, Start date: 05/09/16 10:00:00 SPREAD CUTTER, Duration: 4 doses or times, Stop date: Limited # of times [facility] Morphine 2016-05-09 16:00:00 No Not es: (Same as:MORPhine Sulfate) [facility] Naloxone 2016-05-09 16:00:00 No Notes: Same as Narcan [facility] Flumazenil 2016-05-09 16:00:00 No Notes: (S bhumi as: Romazicon) [facility] Fentanyl 2016-05-09 16:00:00 No Notes: (Same as: Sublimaze) Preservative free. [facility] Diphenhydramine 2016-05-09 16:00:00 No Notes: (Same as: Benadryl) [facility] Labetalol 2016-05-09 16:00:00 No Notes: (Same as: Normodyne, Trandate) Push over 2 minutes Give bolus over 2-3 minutes. [facility] Acetaminophen 2016-05-09 16:00:00 No Notes: Infuse over 15 minutes Do not exceed 4gm/day of acetaminophen MEDICATION WASTE Product Size: 1000 mg Product Wasted: ___ mg [facility] Metoprolol 2016-05-09 16:00:00 No Notes: (Same as: Lopressor) Push over 2 minutes [facility] Ketorolac 2016-05-09 16:00:00 No 4 days MEDICATION WASTE Product Size: 30 mg Product Wasted: ___ mg [facility] Ondansetron 2016-05-09 16:00:00 No Notes: (Same as: Zofran) MEDICATION WASTE Product Size: 4 mg Product Wasted: ___ mg [facility] Meperidine 2016-05-09 16:00:00 No Notes: (S bhumi As: Demerol) [facility] Hydralazine 2016-05-09 16:00:00 No Notes: (Same as: Apresoline) Push over 5 minutes [facility] ondansetron (ANES) 2016-05-09 15:34:00 No Route: IV, Drug form: INJ, ONCE, Stop date: 05/09/16 9:34:00 SPREAD CUTTER [facility] sugammadex (ANES) 2016-05-09 15:34:00 No Route: IV, Drug form: SOLN, ONCE, Stop date: 05/09/16 9:34:00 [facility]) 2016-05-09 15:34:00 No Route: IV, Drug form: INJ, ONCE, Stop date: 05/09/16 9:34:00 SP[facility] CUTTER [facility] famot[facility] ([facility]) 2016-05-09 15:22:00 No Route: IV, Drug form: INJ, ONCE, Stop date: 05/09/16 9:22:00 [facility] 2016-05-09 15:22:00 No Route: Transdermal, Drug form: ERFILM, ONCE, Stop date: 05/09/16 9:22:00 [facility] dexamethasone ([facility]) 2016-05-09 15:12:00 No Route: IV, Drug form: INJ, ONCE, Stop date: 05/09/16 9:12:00 [facility] 2016-05-09 15:12:00 No Route: IV, Drug form: INJ, ONCE, Stop date: 05/09/16 9:12:00 [facility] CUTTER [facility] propofol ([facility]) 2016-05-09 15:12:00 No Route: IV, Drug form: INJ, ONCE, Stop date: 05/09/16 9:12:00 [facility] CUTTER [facility] fentaNYL ([facility]) 2016-05-09 15:12:00 No Route: IV, Drug form: INJ, ONCE, Stop date: 05/09/16 9:12:00 SP[facility] CUTTER [facility] lidocaine ([facility]) 2016-05-09 15:12:00 No Route: IV, Drug form: INJ, ONCE, Stop date: 05/09/16 9:12:00 [facility] C[facility] mid[facility]am ([facility]) 2016-05-09 15:07:00 No Route: IV, Drug form: SOLN, ONCE, Stop date: 05/09/16 9:07:00 SP[facility] CUTTER [facility] ceFAZolin ([facility]) ([facility]) 2016-05-09 14:22:00 No Route: IV, Drug form: INJ, Start date: 05/09/16 8:22:00 SPREAD CUTTER, Stop date: 05/09/16 9:22:00 [facility] LR 1000 mL INJ ([facility]) 2016-05-09 14:21:00 No Route: IV, Total Volume: 1,000, Start date: 05/09/16 8:21:00 SPREAD CUTTER, Stop date: 05/09/16 9:21:00 [facility] Shaun D5W 1,000 mL 2016-05-08 16:53:00 No 1,000 mL, Rate: 40 ml/hr, Infuse over: 25 hr, Route: IV, Dosing Weight 68.835 kg, Total Volume: 1,000, Start date: 05/08/16 10:53:00 SPREAD CUTTER, Duration: 30 day, Stop date: 06/07/16 10:52:00 SPREAD CUTTER [facility] Shaun Relistor 2016-05-07 15:00:00 No Notes: Same as: Relistor Restricted to Palliative Care [facility] Shaun Miralax 2016-05-07 15:00:00 No Notes: Dissolve in 8 oz of water or juice. (Same as: Miralax) [facility] Dilaudid 2016-05-06 23:35:00 No 1 mg, 1 mL, Route: IVP, Drug form: INJ, Q6H, Dosing Weight 68.835, kg, PRN Pain Score 7-10, Start date: 05/06/16 17:35:00 SPREAD CUTTER, Duration: 30 day, Stop date: 06/05/16 17:34:00 SPREAD CUTTER [facility] Dilaudid 2016-05-06 18:47:00 No 1 mg, 1 mL, Route: IVP, Drug form: INJ, Q4H, Dosing Weight 68.835, kg, PRN Pain Score 7-10, Start date: 05/06/16 12:47:00 SPREAD CUTTER, Duration: 30 day, Stop date: 06/05/16 12:46:00 [facility] Hydromorphone 2016-05-04 20:30:00 No 1 mg, 1 mL, Route: IV, Drug form: INJ, Q2H, Dosing Weight 66.364, kg, PRN Pain Score 4-6, Start date: 05/04/16 14:30:00 SPREAD CUTTER, Duration: 30 day, Stop date: 06/03/16 14:29:00 [facility] Mesalamine (Pentasa) 500 mg capsule 2016-05-04 19:00:00 No Mesalamine (Pentasa) 500 mg capsule, 1,000 mg, 2 cap, Drug form: MISC, Route: PO, TID, 05/04/16 13:00:00 SPREAD CUTTER, Duration: 30 day, Stop date: 06/03/16 9:00:00 SPREAD CUTTER [facility] Propranolol 2016-05-03 23:00:00 No Notes: Give with food. (Same as: Inderal) [facility] Citrate of Magnesia 2016-05-01 15:38:00 No Notes: (Same as: Citrate of Magnesia) Concentration: 1.745 gm / 30 mL [facility] zolpidem 2016-05-01 04:29:00 No Notes: ([facility] e As: Ambien) [facility] Mirtazapine 2016-05-01 03:00:00 No Notes: ( Same as:Remeron) [facility] SENOKOT-S 2016-05-01 03:00:00 No Notes: (Same as Senokot-S) Equiv. to Marlene-Colace. [facility] pt own buprenorphine (Belbuca) 2016-05-01 02:11:00 No pt own buprenorphine (Belbuca), 150 microgram, Drug form: MISC, Route: BUC, TID, PRN Pain Score 4-6, 04/30/16 20:11:00 SPREAD CUTTER, Duration: 30 day, Stop date: 05/30/16 20:10:00 SPREAD CUTTER [facility] Propranolol 2016-04-30 23:00:00 No Notes: Take with food. Do not crush or chew. (Same as: Inderal [place]) [facility] gabapentin 100 MG Oral Capsule 2016-04-30 22:00:00 No Notes: (Same as: Neurontin) [facility] Diazepam 2016-04-30 22:00:00 No Notes: (John e as: Valium) [facility] Atropine 2016-04-30 20:50:00 No 0.5 mg, 5 mL, Route: IVP, Drug form: INJ, ONCE, Dosing Weight 66.364, kg, PRN Bradycardia, Start date: 04/30/16 14:50:00 SPREAD CUTTER [facility] Nitroglycerin 0.4 MG Sublingual Tablet 2016-04-30 20:50:00 No Notes: (Same as:Nitroquick, Nitrostat) "Do Not Crush" Sublingual tablet [facility] Chlordiazepoxide Hydrochloride 5 MG / Clidinium bromide 2.5 MG Oral Capsule 2016-04-30 17:30:00 No Notes: (Same As: L ibrax) [facility] Citrate of Magnesia 2016-04-30 15:45:00 No Notes: (Same as: Citrate of Magnesia) Concentration: 1.745 gm / 30 mL [facility] Macrobid 2016-04-30 15:00:00 No Notes: Not recommended for patients with CrCl<50 ml/min (Same as:Macrobid) With food. [facility] Multivitamins with Folic Acid 0.8 mg oral tablet 2016-04-30 15:00:00 No 1 tab, Route: PO, Drug Form: TAB, Dosing Weight 66.364, kg, Daily, Start date: 04/30/16 9:00:00 SPREAD CUTTER, Duration: 30 day, Stop date: 05/29/16 9:00:00 SPREAD CUTTER [facility] Pentasa 2016-04-30 15:00:00 No 500 mg, Route: PO, TID, Dosing Weight 66.364, kg, Start date: 04/30/16 9:00:00 SPREAD CUTTER, Duration: 30 day, Stop date: 05/29/16 17:00:00 SPREAD CUTTER [facility] Folic Acid 2016-04-30 15:00:00 No Notes: (S bhumi as: Folvite) [facility] Fentanyl 2016-04-30 15:00:00 No 1 patch, Route: TOP, Drug form: ERFILM, Q72H, Dosing Weight 66.364, kg, Start date: 04/30/16 9:00:00 SPREAD CUTTER, Duration: 30 day, Stop date: 05/27/16 9:00:00 SPREAD CUTTER [facility] Diazepam 2016-04-30 15:00:00 No 10 mg, Route: PO, Drug form: TAB, TID, Dosing Weight 66.364, kg, Start date: 04/30/16 9:00:00 SPREAD CUTTER, Duration: 30 day, Stop date: 05/29/16 17:00:00 SPREAD CUTTER [facility] Citalopram 2016-04-30 15:00:00 No 40 mg, 4 tab, Route: PO, Drug form: TAB, Daily, Dosing Weight 66.364, kg, Start date: 04/30/16 9:00:00 SPREAD CUTTER, Duration: 30 day, Stop date: 05/29/16 9:00:00 SPREAD CUTTER Roger Dunn Please bring Pt's Own Buprenorphine to pharmacy for label 2016-04-30 15:00:00 No Please bring P t's Own Buprenorphine to pharmacy for label, Reminder, Drug form: MISC, Route: MISC, Q12H, 04/30/16 9:00:00 SPREAD CUTTER, Duration: 30 day, Stop date: 05/29/16 21:00:00 SPREAD CUTTER [facility] Her escalona XIFAXAN 2016-04-30 15:00:00 No Notes: Same as: Xifaxan Roger Dunn pantoprazole 2016-04-30 15:00:00 No Notes: Tablet should not be chewed or crushed. (Same as: Protonix) Violetta Dunn Prednisone 1 MG Oral Tablet 2016-04-30 15:00:00 No Notes: (Same as: PredniSONE) Take with food. [facility] Felix nicolekirsten Ondansetron 2016-04-30 14:40:00 No Notes: [...] Pain Score 1-3, Start date: 04/30/16 8:27:00 SPREAD CUTTER, Duration: 30 day, Stop date: 05/30/16 8:26:00 SPREAD CUTTER Roger Dunn Promethazine 2016-04-30 14:27:00 No Notes: (Same as: Phenergan) Roger Dunn D5NS 1,000 mL 2016-04-30 13:08:00 No 1,000 mL, Rate: 100 ml/hr, Infuse over: 10 hr, Route: IV, Dosing Weight 66.364 kg, Total Volume: 1,000, Start date: 04/30/16 7:08:00 SPREAD CUTTER, Duration: 30 day, Stop date: 05/30/16 7:07:00 SPREAD CUTTER Roger Dunn Hydromorphone 2016-04-30 13:07:00 No 1.25 mg, 1.25 mL, Route: IV, Drug form: INJ, Q4H, Dosing Weight 66.364, kg, PRN Pain Score 6-10, Start date: 04/30/16 7:07:00 SPREAD CUTTER, Stop date: 05/30/16 7:06:00 SPREAD CUTTER Roger Dunn nitrofurantoin 2016-04-30 13:01:00 No 100 mg, PO, BID, # 14 cap, 0 Refill(s) Roger Dunn Pentasa 2016-04-30 13:01:00 No 500 mg, PO, TID, 0 Refill(s) Roger Dunn SENOKOT-S 2016-04-30 12:46:00 Yes 2 tab, PO, Bedtime, 0 Refill(s) [facility] Shaun Classic 2016-04-30 12:46:00 Yes 1 tab, PO, Daily, 0 Refill(s) Roger Ordoñezann diazepam 10 mg oral tablet 2016-04-30 12:46:00 Yes 10 mg = 1 tab, PO, TID, 0 Refill(s) Roger Dunn rifaximin 550 MG Oral Tablet [XIFAXAN] 2016-04-30 12:46:00 Yes 550 mg = 1 tab, PO, BID, 0 Refill(s) Carmen Dunn ondansetron 8 mg oral tablet 2016-04-30 12:46:00 Yes 8 mg = 1 tab, PO, TID, 0 Refill(s) [facility] 7.5 mg oral tablet 2016-04-30 12:46:00 Yes 7.5 mg = 1 tab, PO, Bedtime, 0 Refill(s) [facility] Alfredo murdockkirsten Sodium Chloride 0.154 MEQ/ML Injectable Solution 2016-04-30 11:5 5:00 No 1,000 mL, Rate: 125 ml/hr, I nfuse over: 8 hr, Route: IV, Dosing Weight 65.455 kg, Total Volume: 1,000, Start date: 04/30/16 5:55:00 SPREAD CUTTER, Duration: 30 day, Stop date: 05/30/16 5:54:00 SPREAD CUTTER Gurpreet Dunn Saline Flush 0.9% 2016-04-30 11:55:00 No [...] kg, Priority: STAT, Start date: 04/30/16 5:01:00 SPREAD CUTTER, Stop date: 04/30/16 5:01:00 SPREAD CUTTER Roger Dunn Ondansetron 2016-04-30 11:01:00 No 4 mg, Route: IVP, Drug form: INJ, ONCE, Dosing Weight 65.455, kg, Priority: STAT, Start date: 04/30/16 5:01:00 SPREAD CUTTER, Stop date: 04/30/16 5:01:00 SPREAD CUTTER [facility] burton Dunn Hydromorphone 2016-04-30 06:06:00 No 1 mg, Route: IVP, ONCE, Dosing Weight 65.455, kg, Priority: STAT, Start date: 04/30/16 0:06:00 SPREAD CUTTER, Stop date: 04/30/16 0:06:00 SPREAD CUTTER Roger Dunn Sodium Chloride 0.154 MEQ/ML Injectable Solution 2016-04-30 01:4 7:00 No 1,000 mL, 2,000 ml/hr, Infus e Over: 30 minutes, Route: IV, 1,000, Drug form: INJ, ONCE, Priority: STAT, Dosing Weight 65.455 kg, Start date: 04/29/16 19:47:00 SPREAD CUTTER, Duration: 1 doses or times, Stop date: 04/29/16 19:47:00 SPREAD CUTTER Roger Dunn Ondansetron 2016-04-30 01:47:00 No Notes: (Same as: Zofran) MEDICATION WASTE Product Size: 4 mg Product Wasted: ___ mg [facility] [place] rifaximin 550 mg Tab 2016-04-20 00:00:00 Yes 550mg Q.5D Take 1 tablet (550 mg total) by mouth 2 (two) times daily. [facility] chlordiazePOXIDE (LIBRIUM) 5 MG capsule 2016-04-19 20:42:55 Yes 5mg Q.[id number] Take 5 mg by mouth 3 (three) times daily . [facility] dicyclomine (BENTYL) 10 MG capsule 2016-04-19 20:42:55 Yes 10mg Take 10 mg by mouth 3 (three) times daily as needed. [facility] ondansetron (ZOFRAN-ODT) 4 MG disintegrating tablet 2015-05 19:40:41 Yes 4mg Take 4 mg by mouth every 8 (eight) hours as needed for Nausea. [facility] buprenorphine HCl (BELBUCA) 150 mcg Film 2016-04-14 19:40:[address] 150 mcg inside cheek 2 (two) times daily. [facility] mesalamine (PENTASA) 250 mg CR capsule 2016-04-14 19:40:02 Yes 250mg Q.25D Take 250 mg by mouth 4 (four) times daily. [facility] TiZANidine (ZANAFLEX) 4 MG capsule 2016-04-14 19:40:02 Y es 4mg Q.[id number] Take 4 mg by mouth 3 (three) times daily. [facility] folic acid (FOLVITE) 1 MG tablet 2016-04-14 19:40:02 Yes 1mg QD Take 1 mg by mouth daily. [facility] zolpidem (AMBIEN CR) 12.5 MG CR tablet 2016-04-14 19:39:27 Yes 12.5mg Take 12.5 mg by mouth every night as needed for Insomnia. [facility] fentaNYL (DURAGESIC) 25 mcg/hr patch 2016-04-14 19:39:27 Ye s 1{patch} Place 1 patch onto the skin every third day. [facility] docusate sodium (COLACE) 100 MG capsule 2016-04-14 19:39:27 Yes 100mg Q.5D Take 100 mg by mouth 2 (two) times daily. [facility] Protonix 2016-04-13 13:30:00 No Notes: Tablet should not be chewed or crushed. (Same as: Protonix) Roger Dunn Pentasa 2016-04-12 23:00:00 No 1,000 mg, 4 cap, Route: PO, Drug form: ERCAP, QID, Dosing Weight 64.091, kg, Start date: 04/12/16 17:00:00 SPREAD CUTTER, Duration: 30 day, Stop date: 05/12/16 13:00:00 SPREAD CUTTER Roger Dunn fentaNYL 25 mcg/hr transdermal film, extended release 2016-04-12 21:25:00 Yes 1 patch, TOP, Q72H, 0 Refill(s) Roger Dunn tizanidine 4 mg oral tablet 2016-04-12 21:25:00 Yes 4 mg, PO, BID, 0 Refill(s) Roger Dunn propranolol 80 mg oral capsule, extended release 2016-04-12 21:25:00 Yes 80 mg = 1 cap, PO, Daily, # 30 cap, 0 Refill(s) Roger Dunn promethazine 50 mg oral tablet 2016-04-12 21:25:00 Yes 50 mg = 1 tab, PO, Q6H, PRN Nausea & Vomiting, # 40 tab, 0 Refill(s) Roger Dunn citalopram 40 mg oral tablet 2016-04-12 21:25:00 Yes 40 mg = 1 tab, PO, Daily, # 30 tab, 0 Refill(s) Gurpreetoria l Shaun Folic Acid 2016-04-12 21:25:00 Yes 2 mg, PO, Daily, 0 Refill(s) Roger Dunn dicyclomine 10 mg oral capsule 2016-04-12 21:25:00 Yes 20 mg = 2 cap, PO, TID, PRN Spasm, 0 Refill(s) Gurpreet porteral Shaun predniSONE 10 mg oral tablet 2016-04-12 [...] TID, # 90 cap, 1 Refill(s) Jorje wellingtonl Shaun pantoprazole 40 mg oral enteric coated [...] PO, TID-Bef ore Meals, 0 Refill(s) Roger Ordoñezann Dilaudid 2016-04-12 11:12:00 No 0.5 mg, 0.5 mL, Route: IV, Drug form: INJ, Q4H, Dosing Weight 64.091, kg, PRN Pain Score 6-10, Priority: Routine, Start date: 04/12/16 5:12:00 SPREAD CUTTER, Duration: 30 day, Stop date: 05/12/16 5:11:00 [facility] Acetaminophen 2016-04-12 11:12:00 No Notes: Do not exceed 4 gm/day. (Same as: Tylenol) [facility] Saline Flush 0.9% 2016-04-12 11:12:00 No Notes: (Same as: BD Posiflush) [facility] D5W 1/2NS 1,000 mL 2016-04-12 11:12:00 No 1,000 mL, Rate: 125 ml/hr, Infuse over: 8 hr, Route: IV, Dosing Weight 64.091 kg, Total Volume: 1,000, Start date: 04/12/16 5:12:00 SPREAD CUTTER, Duration: 30 day, Stop date: 05/12/16 5:11:00 [facility] D5W 1/2NS 1,000 mL 2016-04-12 11:01:00 No 1,000 mL, Rate: 75 ml/hr, Infuse over: 13.3 hr, Route: IV, Dosing Weight 64.091 kg, Total Volume: 1,000, Start date: 04/12/16 5:01:00 SPREAD CUTTER, Duration: 30 day, Stop date: 05/12/16 5:00:00 [facility] Dilaudid 2016-04-12 11:00:00 No 0.5 mg, Route: IVP, ONCE, Dosing Weight 64.091, kg, Priority: STAT, Start date: 04/12/16 5:00:00 SPREAD CUTTER, Stop date: 04/12/16 5:00:00 [facility] Dilaudid 2016-04-12 06:24:00 No 0.5 mg, 0.5 mL, Route: IVP, Drug form: INJ, ONCE, Dosing Weight 64.091, kg, Priority: STAT, Start date: 04/12/16 0:24:00 SPREAD CUTTER, Stop date: 04/12/16 0:24:00 SPREAD CUTTER [facility] Shaun Phenergan 2016-04-12 06:24:00 No Notes: Do not give IV push. (Same as: Phenergan) Roger Dunn Saline Flush 0.9% 2016-04-12 00:21:00 No Notes: (Same as: BD Posiflush) Roger Dunn Acetaminophen 325 MG / Hydrocodone Bitartrate 5 MG Oral Tabl et [Wren 5/325] 2016-04-06 09:12:00 Yes 100.4 F, X 5 day, # 16 tab, 0 Refill(s) Roger Dunn Dilaudid 2016-04-06 08:07:00 No 1 mg, Route: IV, ONCE, Dosing Weight 64.091, kg, Start date: 04/06/16 2:07:00 SPREAD CUTTER, Stop date: 04/06/16 2:07:00 SPREAD CUTTER [facility] Shaun Promethazine 2016-04-06 03:58:00 No Notes: Do not give IV push. (Same as: Phenergan) [facility] Shaun Dilaudid 2016-04-06 03:58:00 No 1 mg, Route: IV, ONCE, Dosing Weight 64.091, kg, Start date: 04/05/16 21:58:00 SPREAD CUTTER, Stop date: 04/05/16 21:58:00 [facility] Shaun Ondansetron 2016-04-06 02:18:00 No Notes: ( Same as: Zofran ODT) [facility] [facility] sodium chloride 0.9% 1000 ml INJ 1,000 m L + folic acid 1 mg + Vitamin B1 500 mg + multivitamin 10 m 2016-04-06 00:54:00 No 1,000 mL, Rate: 100 ml/hr, Infuse over: 10.2 hr, Route: IV, Dosing Weight 64.091 kg, Total Volume: 1,015.2, Start date: 04/05/16 18:54:00 SPREAD CUTTER, Duration: 1 doses or times, Stop date: 04/06/16 5:05:00 [facility] Tiago curtis Sodium Chloride 0.154 MEQ/ML Injectable Solution 2016-04-06 00:1 5:00 No 1,000 mL, Rate: 100 ml/hr, I nfuse over: 10 hr, Route: IV, Dosing Weight 64.091 kg, Total Volume: 1,000, thiamine 500mg total, Start date: 04/05/16 18:15:00 SPREAD CUTTER, Duration: 1 doses or times, Stop date: 04/06/16 4:14:00 SPREAD CUTTER [facility] [place] Sodium Chloride 0.154 MEQ/ML Injectable Solution 2016-04-06 00:1 3:00 No 1,000 mL, Rate: 100 ml/hr, Infuse over: 10 hr, Route: IV, Dosing Weight 64.091 kg, Total Volume: 1,000, Start date: 04/05/16 18:13:00 SPREAD CUTTER, Duration: 1 doses or times, Stop date: 04/06/16 4:12:00 SPREAD CUTTER [facility] Sodium Chloride 0.154 MEQ/ML Injectable Solution 2016-04-06 00:1 2:00 No 1,000 mL, 2,000 ml/hr, Infus e Over: 30 minutes, Route: IV, 1,000, Drug form: INJ, ONCE, Priority: STAT, Dosing Weight 64.091 kg, Start date: 04/05/16 18:12:00 SPREAD CUTTER, Duration: 1 doses or times, Stop date: 04/05/16 18:12:00 SPREAD CUTTER [facility] Saline Flush 0.9% 2016-04-06 00:10:00 No Notes: (Same as: BD Posiflush) [facility] Promethazine Hcl (Phenergan Supp*) 25 Mg SUPP Prometha zine Hcl (Phenergan Supp*) 25 Mg SUPP 2016-03-15 10:09:00 2017-07-09 00:00:00 No 25 Every 8 Hours [facility] Ondansetron (Zofran Odt) 4 Mg TAB.RAPDIS Ondansetron ( Zofran Odt) 4 Mg TAB.RAPDIS 2016-03-15 09:46:00 2017-07-09 00:00:00 No 4 Q4-6H Prn [facility] Acetaminophen With Codeine (Tylenol With Codeine #3 Ta blet) 1 Each TABLET Acetaminophen With Codeine (Tylenol With Codeine #3 Tablet) 1 Each TABLET 2016-03-15 09:46:00 2016-08-10 00:00:00 No 300 Every 6 Hours as needed for Pain [facility] Levofloxacin (Levaquin) 500 Mg TABLET Levofloxacin (Levaquin ) 500 Mg TABLET 2016-03-15 09:46:00 2016-08-10 00:00:00 No 500 Daily [facility] Morphine 2016-03-03 03:39:00 No 4 mg, Route: IVP, ONCE, Dosing Weight 61.818, kg, Priority: STAT, Start date: 03/02/16 22:39:00 CDT, Stop date: 03/02/16 22:39:00 CDT Roger Dunn Acetaminophen 300 MG / Codeine Phosphate 30 MG Oral Tablet [Tylenol with Codeine #3] 2016-03-03 03:16:00 Yes 1 tab, PO, Q6H, PRN Pain, X 5 day, # 20 tab, 0 Refill(s) Roger Dunn Cephalexin 500 MG Oral Capsule [Keflex] 2016-03-03 03:16:00 Yes 500 mg = 1 cap, PO, QID, X 7 day, # 28 cap, 0 Refill(s) Roger Dunn Ceftriaxone 2016-03-03 03:08:00 No Notes: (Same As: Rocephin). Use with 100 mL NS and infuse over 30 min MEDICATION WASTE Product Size: 1000 mg Product Wasted: ___ mg Roger Dunn Promethazine 2016-03-03 03:01:00 No 12.5 mg, Route: IVPB, ONCE, Dosing Weight 61.818, kg, Priority: STAT, Start date: 03/02/16 22:01:00 CDT, Stop date: 03/02/16 22:01:00 CDT Carmen Dunn Ondansetron 2016-03-03 01:54:00 No 4 mg, Route: IVP, Drug form: INJ, ONCE, Dosing Weight 61.818, kg, Priority: STAT, Start date: 03/02/16 20:54:00 CDT, Stop date: 03/02/16 20:54:00 CDT Ga matthew Dunn Morphine 2016-03-03 01:54:00 No 4 mg, Route: IVP, ONCE, Dosing Weight 61.818, kg, Priority: STAT, Start date: 03/02/16 20:54:00 CDT, Stop date: 03/02/16 20:54:00 CDT [facility] Shaun Saline Flush 0.9% 2016-03-03 00:27:00 No Notes: (Same as: BD Posiflush) Roger Dunn tramadol hydrochloride 50 MG Oral Tablet 2015-03-21 04:12:00 Yes 50 mg = 1 tab, PO, BID, X 7 day, # 14 tab, 0 Refill(s) Roger Dunn Morphine 2015-03-21 04:11:00 No 4 mg, Route: IM, Drug form: INJ, ONCE, Dosing Weight 64.545, kg, Priority: STAT, Start date: 03/20/15 22:11:00, Stop date: 03/20/15 22:11:00 [facility] 10 MG capsule 2015-01-26 12:04:53 Yes 20mg QD Take 20 mg by mouth nightly. [facility] promethazine (PHENERGAN) 25 MG tablet 2014-11-11 01:16:55 Y es 25mg Take 25 mg by mouth every 6 (six) hours as needed for Nausea. [facility] citalopram (CELEXA) 40 MG tablet 2014-10-18 21:10:52 Yes 40mg QD Take 40 mg by mouth daily. [facility] scopolamine (TRANSDERM-SCOP) 1.5 mg patch 2014-10-01 03:22:0 5 Yes prevention of motion sickness 1{patch} Place 1 pa tch onto the skin every third day. [facility] diazepam (VALIUM) 10 MG tablet 2014-09-30 01:54:22 Yes 10mg Q.25D Take 10 mg by mouth 4 (four) times daily. [facility] Ketorolac 2014-09-27 03:02:00 No 4 days MEDICATION WASTE Product Size: 30 mg Product Wasted: ___ mg [facility] Acetaminophen 325 MG / butalbital 50 MG / Caffeine 40 MG Ora l Tablet [Esgic] 2014-09-27 03:00:00 No Notes: (exlslkbxgovsc-szlvunxmbt-lmzwnsyq 325-50-40mg) Do not exceed 4 gm/day of acetaminophen. (Same as: Esgic, Fioricet) [facility] Acetaminophen 300 MG / butalbital 50 MG / Caffeine 40 MG Oral Capsule [Fioricet] 2014-09-26 22:40:00 No Notes: (itibbxbdhohdo-djajsewnoh-eivxouul 325-50-40mg) Do not exceed 4 gm/day of acetaminophen. (Same as: Esgic, Fioricet) Roger Shaun Promethazine 2014-09-26 16:48:00 No Notes: (Same as: Phenergan) Roger Shaun Promethazine 2014-09-26 16:47:00 No Notes: (Same as: [...] patch every 72 hours (Same as: Janee rm-Scop) [facility] Nicotine 2014-09-17 17:00:00 No 21 mg, 1 patch, Route: TOP, Drug form: ERFILM, Daily, Dosing Weight 65.455, kg, Start date: 09/17/14 12:00:00, Duration: 30 day, Stop date: 10/17/14 9:00:00 [facility] Sodium Chloride 0.154 MEQ/ML Injectable Solution 2014-09-16 17:2 2:00 No 500 mL, Rate: 25 ml/hr, Infu se over: 20 hr, Route: IV, Dosing Weight 65.455 kg, Total Volume: 500, Start date: 09/16/14 12:22:00, Duration: 1 day, Stop date: 09/17/14 12:21:00 [facility] Protonix 2014-09-16 02:00:00 No Notes: Tablet should not be chewed or crushed. (Same as: Protonix) [facility] Amitriptyline 2014-09-15 18:00:00 No Notes: (Same as: Elavil) [facility] Dilaudid 2014-09-15 15:53:00 No 1 mg, 1 mL, Route: IV, Drug form: INJ, Q4H, Dosing Weight 65.455, kg, PRN Pain Score 7-10, Start date: 09/15/14 10:53:00, Duration: 30 day, Stop date: 10/15/14 10:52:00 [facility] Celexa 2014-09-15 14:00:00 No Notes: (Same As: CeleXA) [facility] Hydroxyzine 2014-09-15 02:00:00 No Notes: (Same as: Atarax) Avoid alcohol. [facility] Diazepam 2014-09-14 23:00:00 No Notes: (John e as: Valium) [facility] Dilaudid 2014-09-14 18:03:00 No 2 mg, 2 mL, Route: IV, Drug form: INJ, Q4H, Dosing Weight 65.455, kg, PRN Pain Score 7-10, Start date: 09/14/14 13:03:00, Stop date: 10/14/14 13:02:00 M jeremy [place] Acetaminophen 325 MG / Hydrocodone Bitartrate 10 MG Or al Tablet [Wren 10/325] 2014-09-14 18:02:00 No Note s: Do not exceed 4gm/day of acetaminophen. (Same as: Wren 325/10) [facility] zolpidem 2014-09-14 18:01:00 No Notes: (John e As: Ambien) [facility] [place] Diphenhydramine 2014-09-14 16:44:00 No Notes: (Same as: Benadryl) [facility] Diazepam 2014-09-14 14:00:00 No Notes: (John e as: Valium) [facility] Celexa 2014-09-14 14:00:00 No Notes: (Same As: CeleXA) [facility] Saline Flush 0.9% 2014-09-14 07:59:00 No Notes: preservative free. [facility] Sodium Chloride 0.154 MEQ/ML Injectable Solution 2014-09-14 07:5 9:00 No 1,000 mL, Rate: 60 ml/hr, In fuse over: 16.7 hr, Route: IV, Dosing Weight 60 kg, Total Volume: 1,000, Start date: 09/14/14 2:59:00, Stop date: 10/14/14 2:58:00 [facility] Ondansetron 2014-09-14 07:59:00 No Notes: (Same as: Rukhsana) MEDICATION WASTE Product Size: 4 mg Product Wasted: ___ mg [facility] Morphine 2014-09-14 07:59:00 No Not es: (Same as:MORPhine Sulfate) [facility] [place] Dilaudid 2014-09-14 07:34:00 No 1 mg, 1 mL, Route: IVP, Drug form: INJ, Q6H, Dosing Weight 60, kg, PRN Pain Score 6-10, Priority: STAT, Start date: 09/14/14 2:34:00, Duration: 30 day, Stop date: 10/14/14 2:33:00 [facility] Morphine 2014-09-14 07:34:00 No Not es: (Same as:MORPhine Sulfate) [facility] [place] Ambien 2014-09-14 07:29:00 No Notes: (Same As: Ronen) [facility] Phenergan 2014-09-14 07:26:00 No Notes: Do not give IV push. (Same as: Phenergan) Roger Dunn Zofran 2014-09-14 07:26:00 No Notes: (Same as: Zofran) MEDICATION WASTE Product Size: 4 mg Product Wasted: ___ mg Roger Dunn pantoprazole 2014-09-14 07:25:00 No Notes: For IV push reconstitute with 10 ml 0.9% sodium chloride and push over 2 minutes. (Same as: Protonix) [facility] [place] normal saline 0.9% IV 1,000 mL 2014-09-14 07:25:00 No 1,000 mL, Rate: 75 ml/hr, Infuse over: 13.3 hr, Route: IV, Dosing Weight 60 kg, Total Volume: 1,000, Start date: 09/14/14 2:25:00, Duration: 30 day, Stop date: 10/14/14 2:24:00 Roger Shaun Benadryl 2014-09-14 07:12:00 No 12.5 mg, Route: IVP, ONCE, Dosing Weight 60, kg, Priority: STAT, Start date: 09/14/14 2:12:00, Stop date: 09/14/14 2:12:00 Roger Shaun Reglan 2014-09-14 06:31:00 No 10 mg, Route: IVP, Drug form: INJ, ONCE, Dosing Weight 60, kg, Priority: STAT, Start date: 09/14/14 1:31:00, Stop date: 09/14/14 1:31:00 Roger Dunn Acetaminophen 325 MG / Hydrocodone Bitartrate 10 MG Or al Tablet [Wren 10/325] 2014-09-14 06:30:00 No 1-2 tab, PO, Q4-6H, PRN Pain, X 5 day, # 15 tab, 0 Refill(s) Roger Shaun Promethazine Hydrochloride 25 MG Rectal Suppository [Phenerg an] 2014-09-14 06:30:00 No 25 mg = 1 supp, NJ, Q6H, PRN Nausea & Vomiting, X 3 day, # 9 supp, 0 Refill(s) Roger Dunn Promethazine Hydrochloride 25 MG Oral Tablet [Phenergan] 2014-09-14 06:29:00 No 25 mg = 1 tab, PO, Q 6H, PRN Nausea, X 4 day, # 15 tab, 0 Refill(s) [facility] Acetaminophen 325 MG / Hydrocodone Bitartrate 10 MG Or al Tablet [Wren 10/325] 2014-09-14 05:58:00 No 1 ta b, Route: PO, Drug Form: TAB, Dosing Weight 60, kg, ONCE, STAT, Start date: 09/14/14 0:58:00, Stop date: 09/14/14 0:58:00 [facility] Phenergan 2014-09-14 04:59:00 No Notes: Do not give IV push. (Same as: Phenergan) [facility] Dilaudid 2014-09-14 04:58:00 No 2 mg, 2 mL, Route: IVP, Drug form: INJ, ONCE, Dosing Weight 60, kg, Priority: STAT, Start date: 09/13/14 23:58:00, Stop date: 09/13/14 23:58:00 [facility] Phenergan 2014-09-14 03:17:00 No 12.5 mg, Route: IVPB, ONCE, Dosing Weight 60, kg, Priority: STAT, Start date: 09/13/14 22:17:00, Stop date: 09/13/14 22:17:00 [facility] Sodium Chloride 0.154 MEQ/ML Injectable Solution 2014-09-14 03:1 7:00 No 1,000 mL, Infuse Over: 1 hr, Route: IV, ONCE, Priority: STAT, Dosing Weight 60 kg, Start date: 09/13/14 22:17:00, Duration: 1 doses or times, Stop date: 09/13/14 22:17:00 [facility] Saline Flush 0.9% 2014-09-14 03:17:00 No Notes: preservative free. [facility] Morphine 2014-09-14 03:17:00 No 6 mg, Route: IVP, ONCE, Dosing Weight 60, kg, Priority: STAT, Start date: 09/13/14 22:17:00, Stop date: 09/13/14 22:17:00 [facility] Acetaminophen 325 MG / Hydrocodone Bitartrate 5 MG Oral Tabl et [Wren 5/325] 2014-02-09 16:01:00 Yes 1-2 tab, PO, Q4-6H, Pain, # 12 tab, 0 Refill(s) [facility] Acetaminophen 325 MG / Hydrocodone Bitartrate 5 MG Oral Tabl et [Wren 5/325] 2014-02-09 15:08:00 No 1 tab, Route: PO, Dosing Weight 66.364, kg, ONCE, Start date: 02/09/14 10:08:00, Stop date: 02/09/14 10:08:00 [facility] Miralax 2013 14:00:00 No Notes: Dissolve in 8 oz of water or juice. (Same as: Miralax) [facility] nn Promethazine 2013-12-16 12:17:00 No Notes: Do not give IV push. (Same as: Phenergan) [facility] Depacon 2013-12-13 13:35:00 No Notes: Dilute in at least 50ml D5W or NS. Infusion rate = 20 mg/min (Same As: Depacon) [facility] Dextrose 50% Syringe 2013-12-12 17:48:00 No 25 gm, 50 mL, Route: IV, Drug Form: INJ, Dosing Weight 63.636, kg, PRN, PRN Blood Glucose Results, Start date: 12/12/13 12:48:00, Duration: 30 day, Stop date: 01/11/14 12:47:00 [facility] gabapentin 2013-12-12 14:30:00 No Notes: (S bhumi as: Neurontin) [facility] Protonix 2013-12-11 21:30:00 No Notes: Tablet should not be chewed or crushed. (Same as: Protonix) [facility] Dilaudid 2013-12-11 16:22:00 No 0.8 mg, 0.8 mL, Route: IV, Drug form: INJ, Q6H, Dosing Weight 63.636, kg, PRN Severe Pain, Start date: 12/11/13 11:22:00, Stop date: 01/10/14 11:21:00 [facility] [place] Ketorolac 2013-12-11 16:21:00 No 4 days [facility] Phenergan 2013-12-11 15:09:00 No Notes: Do not give IV push. (Same as: Phenergan) [facility] Dexamethasone 2013-12-11 15:08:00 No 10 mg, 2.5 mL, Route: IVPB, Drug form: INJ, ONCE, Dosing Weight 63.636, kg, Start date: 12/11/13 10:08:00, Stop date: 12/11/13 10:08:00 Roger barrientos Miralax 2013-12-11 14:00:00 No Notes: Dissolve in 8 oz of water or juice. (Same as: Miralax) [facility] Marisela nn Multiple Vitamins with Minerals oral tablet 2013-12-11 14:00:00 No Notes: (Same as:Thera-M, Theragran-M) Give with food. [facility] Celexa 2013-12-11 14:00:00 No Notes: (Same As: CeleXA) [facility] Diazepam 2013-12-11 11:00:00 No Notes: (John e as: Valium) [facility] zolpidem 2013-12-11 10:46:00 No 10 mg, Route: PO, Drug form: TAB, Bedtime, Dosing Weight 63.636, kg, PRN as needed for sleep, Start date: 12/11/13 5:46:00, Duration: 30 day, Stop date: 01/10/14 5:45:00 [facility] Hyoscyamine 2013-12-11 10:46:00 No Notes: (Same as: Levsin) Take 30 min before meal Roger Dunn Chlordiazepoxide Hydrochloride 25 MG Oral Capsule 2013-12-11 10:45:00 No 25 mg, 1 cap, Route: PO, Drug form: CAP, QID, Dosing Weight 63.636, kg, PRN as needed for anxiety, Start date: 12/11/13 5:45:00, Duration: 30 day, Stop date: 01/10/14 5:44:00 [facility] Ambien 2013-12-11 04:00:00 No Notes: (Same As: Ambien) [facility] Protonix 2013-12-10 21:30:00 No Notes: For IV push reconstitute with 10 ml 0.9% sodium chloride and push over 2 minutes. (Same as: Protonix) [facility] Promethazine 2013-12-10 16:34:00 No Notes: Do not give IV push. (Same as: Phenergan) [facility] Dilaudid 2013-12-10 16:33:00 No 0.5 mg, 0.5 mL, Route: IV, Drug form: INJ, Q3H, Dosing Weight 64.545, kg, PRN Pain, Start date: 12/10/13 11:33:00, Duration: 30 day, Stop date: 01/09/14 11:32:00 [facility] D5W 1/2NS + KCL 20mEq/L 1000ml (Premix) 1,000 mL 2013-12-10 16:2 9:00 No Notes: PREMIX IV - Do Not Alter [facility] Saline Flush 0.9% 2013-12-10 16:29:00 No Notes: Same as: BD Posiflush Sterile [facility] Docusate 2013-12-10 16:29:00 No Notes: (Same as: Colace) (Do Not Crush) [facility] Acetaminophen 2013-12-10 16:29:00 No Notes: Do not exceed 4 gm/day. (Same as: Tylenol) [facility] Haldol 2013-12-07 05:47:00 No Notes: (Same as: Haldol) [facility] Lorazepam 2013-12-07 05:46:00 No Notes: (Sa me as: Ativan) [facility] Valproic Acid 100 MG/ML Injectable Solution 2013-12-07 04:44:00 No Notes: Dilute in at least 50ml D5W or NS. Infusion rate = 20 mg/min (Same As: Depacon) [facility] Metoclopramide 2013-12-07 04:44:00 No Notes : (Same as: Reglan) [facility] Diphenhydramine 2013-12-07 04:44:00 No Notes: (Same as: Benadryl) [facility] Ketorolac 2013-12-07 04:43:00 No 4 days [facility] Sodium Chloride 0.154 MEQ/ML Injectable Solution 2013-12-07 04:4 3:00 No 1,000 mL, 1,000 ml/hr, Infus e Over: 1 hr, Route: IV, 1,000, Drug form: INJ, ONCE, Priority: STAT, Dosing Weight 64.545 kg, Start date: 12/06/13 23:43:00, Duration: 1 doses or times, Stop date: 12/06/13 23:43:00 Roger Dunn pantoprazole 2013-09-24 14:00:00 No Notes: Tablet should not be chewed or crushed. (Same as: Protonix) Violetta Dunn promethazine 25 mg rectal suppository 2013-09-24 12:15:28 Y es 25 mg = 1 supp, NJ, Q4H, Nausea & Vomiting, # 10 supp, 0 Refill(s) Roger Dunn Acetaminophen 325 MG / Hydrocodone Bitartrate 10 MG Or al Tablet [Wren 10/325] 2013-09-24 12:14:56 Yes 1 ta b, PO, Q4H, for pain, # 50 tab, 0 Refill(s) Roger Dunn Zantac 300 2013-09-24 02:00:00 No 300 mg, Route: PO, Drug form: TAB, Bedtime, Dosing Weight 65.455, kg, Start date: 09/23/13 21:00:00, Duration: 30 day, Stop date: 10/22/13 21:00:00 Herbert granado Shaun Pepcid 2013-09-24 02:00:00 No Notes: (Same as: Pepcid) Roger Dunn Ativan 2013-09-24 01:42:00 No Notes: (Same as: Ativan) Roger Dunn Phenergan 2013-09-23 22:34:00 No Notes: (Sa me as: Phenergan) Roger Dunn Acetaminophen 325 MG / Hydrocodone Bitartrate 5 MG Oral Tabl et [Wren 5/325] 2013-09-23 11:43:00 No Notes: (Same as: Wren 325/5) Do not exceed 4gm/day of acetaminophen. Roger Antonio nn magnesium citrate 2013-09-21 22:59:00 No Notes: (Same as: Citrate of Magnesia) Roger Dunn pantoprazole 2013-09-21 12:30:00 No Notes: Tablet should [...] blood sugar <50 [facility] Pe[facility]alo[facility] 2013-09-20 02:43:00 No Notes: Do not give IV push. (Same as: Phenergan) [facility] Shaun Miralax 2013-09-19 22:05:00 No Notes: Dissolve in 8 oz of water or juice. (Same as: Miralax) [facility] Marisela nn Phenergan 2013-09-19 22:05:00 No Notes: ([facility] as: Phenergan) [facility] [...] as: Phenergan) [facility] Phenergan 2013-09-19 02:15:00 No Notes: Do not give IV push. (Same as: Phenergan) [facility] Chlordiazepoxide Hydrochloride 25 MG Oral Capsule 2013-09-19 02:00:00 No 25 mg, 1 cap, Route: PO, Drug form: CAP, QID, Dosing Weight 65.455, kg, Start date: 09/18/13 21:00:00, Duration: 30 day, Stop date: 10/18/13 17:00:00 [facility] Shaun Ambien 2013-09-19 02:00:00 No Notes: (Same As: Ambien) [facility] Hydroxyzine 2013-09-19 01:57:00 No Notes: ( Same as: Vistaril) [facility] Temazepam 2013-09-18 21:46:00 No Notes: ([facility] As: Restoril) [facility] Shaun Dilaudid 2013-09-18 21:45:00 No 1 mg, 1 mL, Route: IV, Drug form: INJ, Q3H, Dosing Weight 69.545, kg, PRN Pain Score 7-10, Start date: 09/18/13 16:45:00, Duration: 30 day, Stop date: 10/18/13 16:44:00 [facility] Acetaminophen 2013-09-18 21:39:00 No Notes: Do not [...] Hydrocodone Bitartrate 10 MG Or al Tablet [Wren 10/325] 2013-09-13 08:03:00 Yes 1 ta b, PO, Q4H, for pain, # 50 tab, 0 Refill(s) [facility] [place] Acetaminophen 65 MG/ML / Oxycodone Hydrochloride 1 MG/ML Ora l Solution 2013-09-13 08:02:00 Yes 5 ml, PO, Q4H, for pain, # 480 mL, 0 Refill(s) [facility] [place] Acetaminophen 65 MG/ML / Oxycodone Hydrochloride 1 MG/ML Ora l Solution 2013-09-13 07:57:00 Yes 5 ml, PO, Q4H, for pain, # 480 mL, 0 Refill(s) Roger Dunn Ciprofloxacin 500 MG Oral Tablet [Cipro] 2013-09-13 07:57:00 Yes 500 mg = 1 tab, PO, Q12H, # 28 tab, 0 Refill(s) Roger Ordoñezann Acetaminophen 325 MG / Hydrocodone Bitartrate 5 MG Oral Tabl et [Wren 5/325] 2013-09-13 07:44:00 No 1 tab, Route: PO, Dosing Weight 69.545, kg, ONCE, Start date: 09/13/13 2:44:00, Stop date: 09/13/13 2:44:00 Roger Ordoñezann Acetaminophen 33.3 MG/ML / Hydrocodone Bitartrate 0.5 MG/ML Oral Solution 2013-09-13 06:12:00 Yes 15 ml, PO, Q4H, for pain, # 60 mL, 0 Refill(s) Roger Dunn Ondansetron 8 MG Disintegrating Tablet [Zofran] 2013-09-13 06:11 :00 Yes Special Instructions: Dissolve tab under tongue Roger Dunn promethazine 50 mg rectal suppository 2013-09-13 06:11:00 Y es 50 mg = 1 supp, NJ, Q6H, Nausea & Vomiting, # 12 supp, [...] Y es 25 mg = 1 supp, NJ, Q4H, Nausea & Vomiting, # 10 supp, 0 Refill(s) Roger Dunn Ondansetron 0.8 MG/ML Oral Solution [Zofran] 2013-09-09 21:33:00 No Notes: (Same as: Zofran ODT) [facility] Felix floyd Phenergan 2013-09-09 21:33:00 No Notes: ([facility] as: Phenergan) [facility] Shaun Thiamine 2013-09-09 14:00:00 No Notes: ([facility] e As: Vitamin B1) Roger Dunn Metoclopramide 10 MG Oral Tablet [Reglan] 2013-09-08 16:30:00 No Notes: (Same as: Reglan) Take 30 min before meals Roger Dunn promethazine 12.5 mg rectal suppository 2013-09-07 12:55:00 Yes 12.5 mg = 1 supp, NJ, Q4H, Nausea & Vomiting, # 12 can, 0 Refill(s) [facility] Shaun Phenergan 2013-09-07 12:51:00 No Notes: ([facility] as: Phenergan) [facility] Shaun Protonix 2013-09-06 14:00:00 No Notes: Tablet should not be chewed or crushed. (Same as: Protonix) [facility] Shaun Actigall 2013-09-06 02:00:00 No Notes: ([facility] e As: Actigall) [facility] Shaun hydrocortisone acetate 25 MG Rectal Suppository [Anusol HC] 2013-09-05 22:00:00 No Notes: (Same as: Anusol-HC, H emorrhoidal HC) [facility] [place] Metronidazole 500 MG Oral Tablet 2013-09-05 19:00:00 [...] electrolyte solution 4 Liter bottle) (Same as: Golmojgan Colyte) Roger Ordoñezann Miralax 2013-09-03 17:48:00 No Notes: Dissolve in 8 oz of water or juice. (Same as: Miralax) Roger Antonio nn Docusate Sodium 100 MG Oral Capsule 2013-09-03 17:48:00 No 100 mg, 1 cap, Route: PO, Drug form: CAP, BID, Dosing Weight 67.273, kg, PRN Constipation, Start date: 09/03/13 12:48:00, Duration: 30 day, Stop date: 10/03/13 12:47:00 Roger Ordoñezann Protonix 2013-09-03 14:00:00 No Notes: For IV push reconstitute with 10 ml 0.9% sodium chloride and push over 2 minutes. (Same as: Protonix) Roger Shaun Hydroxyzine 2013-09-03 02:00:00 No Notes: (Same as: Atarax) Avoid alcohol. Roger Ordoñezann Ambien 2013-09-03 02:00:00 No Notes: (Same As: Ambien) [facility] [place] Benadryl 2013-09-02 22:42:00 No Notes: (John e as: Benadryl) Roger Dunn Hyoscyamine 2013-09-02 22:41:00 No Notes: (Same as: Levsin) Take 30 min before meal Roger Dunn Dilaudid 2013-09-02 22:35:00 No 1 mg, 1 mL, Route: IV, Drug form: INJ, Q4H, Dosing Weight 67.273, kg, PRN Pain Score 7-10, Start date: 09/02/13 17:35:00, Duration: 30 day, Stop date: 10/02/13 17:34:00 Rgoer Dunn Diazepam 2013-09-02 17:00:00 No Notes: (John [...] PO, Bedtime, for sleep, 0 Refill(s) Jorje fan Dunn Miralax 2013-09-02 13:45:00 Yes 17 gm, PO, D aily, 0 Refill(s) Roger Dunn hyoscyamine 0.125 mg sublingual tablet 2013-09-02 13:45:00 Yes 0.125 mg = 1 tab, SL, Q6H, GI Upset, 0 Refill(s) Roger Dunn Phenergan 2013-09-02 13:32:00 No Notes: Do not give IV push. (Same as: Phenergan) Roger Dunn Ondansetron 2013-09-02 13:21:00 No Notes: ( Same as: Zofran) [facility] Morphine 2013-09-02 13:21:00 No Not es: (Same as:MORPhine Sulfate) [facility] Docusate 2013-09-02 13:21:00 No Notes: (Same as: Colace) (Do Not Crush) [facility] Saline Flush 0.9% 2013-09-02 13:21:00 No Notes: (Same as: BD Posiflush) [facility] Sodium Chloride 0.0769 MEQ/ML Injectable Solution 2013-09-02 13:21:00 No 1,000 mL, Rate: 125 ml/hr, Infuse over: 8 hr, Route: IV, Dosing Weight 67.273 kg, Total Volume: 1,000, Start date: 09/02/13 8:21:00, Duration: 30 day, Stop date: 10/02/13 8:20:00 [facility] Acetaminophen 2013-09-02 13:21:00 No Notes: Max acetaminophen = 4000mg/day (4 gm/day). (Same as: Tylenol) [facility] Acetaminophen 325 MG / Hydrocodone Bitartrate 10 MG Oral Tab let 2013-09-02 13:21:00 No Notes: Do not exceed 4gm/day of acetaminophen. (Same as: Wren 325/10) [facility] Acetaminophen 325 MG / Hydrocodone Bitartrate 5 MG Oral Tabl et 2013-09-02 13:21:00 No Notes: (Sa me as: Wren 325/5) Do not exceed 4gm/day of acetaminophen. [facility] Chlordiazepoxide Hydrochloride 25 MG Oral Capsule 2013-09-02 12:30:00 No 25 mg, 1 cap, Route: PO, Drug form: CAP, QID, Dosing Weight 67.273, kg, PRN as needed for anxiety, Start date: 09/02/13 7:30:00, Duration: 30 day, Stop date: 10/02/13 7:29:00 [facility] normal saline 0.9% IV 1,000 mL 2013-09-02 12:29:00 No 1,000 mL, Rate: 125 ml/hr, Infuse over: 8 hr, Route: IV, Dosing Weight 67.273 kg, Total Volume: 1,000, Start date: 09/02/13 7:29:00, Duration: 30 day, Stop date: 10/02/13 7:28:00 [facility] Zofran 2013-09-02 09:03:00 No 4 mg, Route: IVP, Drug form: INJ, ONCE, Dosing Weight 67.273, kg, Priority: STAT, Start date: 09/02/13 4:03:00, Stop date: 09/02/13 4:03:00 [facility] Promethazine Hydrochloride 25 MG Oral Tablet [Phenergan] 2013-09-02 08:42:00 No 25 mg = 1 tab, PO, Q4H, Nausea, # 15 tab, 0 Refill(s) [facility] Dilaudid 2013-09-02 07:49:00 No 1 mg, Route: IV, ONCE, Dosing Weight 67.273, kg, Start date: 09/02/13 2:49:00, Stop date: 09/02/13 2:49:00 [facility] Phenergan 2013-09-02 07:49:00 No 12.5 mg, Route: IVPB, ONCE, Dosing Weight 67.273, kg, Priority: STAT, Start date: 09/02/13 2:49:00, Stop date: 09/02/13 2:49:00 [facility] Hydromorphone 2013-09-02 05:51:00 No 1 mg, Route: IVP, ONCE, Dosing Weight 67.273, kg, Priority: STAT, Start date: 09/02/13 0:51:00, Stop date: 09/02/13 0:51:00 [facility] Phenergan 2013-09-02 04:58:00 No Notes: Do not give IV push. (Same as: Phenergan) [facility] Sodium Chloride 0.154 MEQ/ML Injectable Solution 2013-09-02 04:5 8:00 No 1,000 mL, 1000 ml/hr, Infuse Over: 1 hr, Route: IV, 1,000, Drug form: INJ, ONCE, Priority: STAT, Dosing Weight 67.273 kg, Start date: 09/01/13 23:58:00, Duration: 1 doses or times, Stop date: 09/01/13 23:58:00 [facility] Saline Flush 0.9% 2013-09-02 04:58:00 No Notes: (Same as: BD Posiflush) [facility] pantoprazole 40 mg oral enteric coated tablet 2013-09-01 11:54:0 0 Yes 40 mg = 1 tab, PO, Daily, # 30 tab, 0 Refill(s) Roger Dunn promethazine 6.25 mg/5 mL oral syrup 2013-09-01 11:53:00 Ye s 18.75 mg = 15 mL, PO, QID, as needed for nausea/vomiting, # 500 mL, 0 Refill(s) Roger Dunn Ondansetron 2013-09-01 11:29:00 No Notes: ( Same as: Rukhsana ODT) Roger Dunn Acetaminophen 325 MG / Hydrocodone Bitartrate 10 MG Oral Tab let 2013-09-01 11:29:00 No Notes: Do not exceed 4gm/day of acetaminophen. (Same as: Wren 325/10) [facility] [place] Solu-Medrol 2013-09-01 07:45:00 No Notes: (Same as:Solu-MEDROL, A-Methapred) [facility] Diphenhydramine 2013-09-01 07:45:00 No Notes: (Same as: Benadryl) [facility] Metoclopramide 2013-09-01 05:43:00 No Notes : (Same as: Reglan) [facility] Ondansetron 2013-09-01 05:43:00 No Notes: ( Same as: Rukhsana) [facility] Shaun Hydromorphone 2013-09-01 05:43:00 No 0.5 mg, 0.5 mL, Route: IVP, Drug form: INJ, ONCE, Dosing Weight 63.636, kg, Priority: STAT, Start date: 09/01/13 0:43:00, Stop date: 09/01/13 0:43:00 Roger Dunn Sodium Chloride 0.154 MEQ/ML Injectable Solution 2013-09-01 05:4 3:00 No 1,000 mL, 1,000 ml/hr, Infus e Over: 1 hr, Route: IV, 1,000, Drug form: INJ, ONCE, Priority: STAT, Dosing Weight 63.636 kg, Start date: 09/01/13 0:43:00, Duration: 1 doses or times, Stop date: 09/01/13 0:43:00 Roger Ordoñezann albuterol 90 mcg/inh inhalation aerosol 2013-06-10 16:44:0 0 Yes Campos Terminella 2 puff, INHALATION, QID, wheezing, # 1 can, 0 Refill(s) Roger [place] DuoNeb inhalation solution 2013-06-10 16:44:00 Yes Campos Terminella 3 ml, INHALATION, QID, Wheezing, # 60 ea, 0 Refill(s) Roger Dunn docusate sodium 100 mg oral capsule 2013-06-10 15:58:00 Yes Kaylee Jarvis Jim 100 mg = 1 cap, PO, Daily, as needed for constipation, # 100 cap, 3 Refill(s) [facility] Shaun polyethylene glycol 3350 oral powder for reconstitution 2013-06-10 15:58:00 Yes Kaylee Jarvis Jim 17 gm, PO, BID, # 527 gm, 1 Refill(s) [facility] [place] predniSONE 2013-06-10 15:00:00 No Enayet Rahim 40 mg, 2 tab, Route: PO, Drug form: TAB, Daily, Dosing Weight 66.364, kg, Start date: 06/10/13 9:00:00, Duration: 30 day, Stop date: 07/09/13 9:00:00Take with food. [facility] Nebulizer 2013-06-10 12:32:00 Yes Enayet Rahim 1 [...] PO, Daily, # 10 tab, 0 Refill(s) [facility] levofloxacin 750 mg oral tablet 2013-06-10 12:32:00 Yes Enayet Rahim 750 mg = 1 tab, PO, Daily, # 5 tab, 0 Refill(s) [facility] Promethazine DM oral syrup 2013-06-10 12:32:00 Yes Enaye t Rahim 5 mL, PO, Q6H, for cough, # 30 mL, 0 Refill(s) Roger Dunn Bentyl 2013-06-10 03:00:00 No Sri Matheus Jim 10 mg, 1 cap, Route: PO, Drug form: CAP, QID, Dosing Weight 66.364, kg, Start date: 06/09/13 21:00:00, Duration: 30 day, Stop date: 07/09/13 17:00:00(Same as: Bentyl) [facility] Shaun Levaquin 2013-06-10 03:00:00 No Enayet Rahim 500 mg, 2 tab, Route: PO, Drug form: TAB, Daily, Dosing Weight 66.364, kg, Start date: 06/09/13 21:00:00, Duration: 30 day, Stop date: 07/08/13 21:00:00Do not give w/antacids, dairy pdt & minerals Take 1 hr before or 2 hr after dairy pdt (Same as:Levaquin) [facility] Shaun MiraLax 2013-06-09 15:00:00 No Sri Matheus Jim 17 gm, 1 pkt, Route: PO, Drug form: PWDR, BID, Dosing Weight 66.364, kg, Start date: 06/09/13 9:00:00, Duration: 30 day, Stop date: 07/08/13 17:00:00Dissolve in 8 oz of water or juice. (Same as: Miralax) Roger ndiaye Colace 100 mg oral capsule 2013-06-09 03:00:00 No S shen Jarvis Jim 100 mg, 1 cap, Route: PO, Drug form: CAP , Bedtime, Dosing Weight 66.364, kg, Start date: 06/08/13 21:00:00, Duration: 30 day, Stop date: 07/07/13 21:00:00(Same as: Colace) (Do Not Crush) [facility] Shaun Dilaudid 2013-06-08 16:35:00 No Enayet Rahim 1 mg, 1 mL, Route: IV, Drug form: INJ, Q6H, Dosing Weight 66.364, kg, PRN Pain Score 6-10, Start date: 06/08/13 10:35:00, Duration: 30 day, Stop date: 07/08/13 10:34:00 [facility] Shaun hydromorphone 2013-06-08 06:54:00 No Enayet Rahim 2 mg, 2 mL, Route: IVP, Drug form: INJ, ONCE, Dosing Weight 66.364, kg, Priority: STAT, Start date: 06/08/13 0:54:00, Stop date: 06/08/13 0:54:00 Roger Dunn Flonase 0.05 mg/inh nasal spray 2013-06-07 15:00:00 [...] day, Stop date: 07/05/13 9:00:00(Same As: CeleXA) Roger Dunn Ambien 2013-06-06 06:35:00 No Enayet Rahim 10 mg, 1 tab, Route: PO, Drug form: TAB, ONCE, Start date: 06/06/13 0:35:00, Stop date: 06/06/13 0:35:00(Same As: Ambien) Roger leigh Fioricet oral tablet 2013-06-06 03:06:00 No Enayet Rahi m 1 tab, Route: PO, Drug Form: TAB, Dosing Weight 66.364, kg, Q4H, PRN Headache, Start date: 06/05/13 21:06:00, Duration: 30 day, Stop date: 07/05/13 21:05:00([id number]-[id number] 325-50-40mg) Do not exceed 4 gm/day of acetaminophen. (Same as: Esgic, Fioricet) Roger Dunn zolpidem 2013-06-06 03:00:00 No Enayet Rahim 10 [...] date: 07/04/13 21:00:00(Same as: Atarax) Avoid alcohol. [facility] Tamiflu 2013-06-06 03:00:00 No Campos Terminella 75 mg, 1 cap, Route: PO, Drug form: CAP, [id number], Dosing Weight 66.364, kg, Start date: 06/05/13 21:00:00, Duration: 10 doses or times, Stop date: 06/10/13 9:00:00Take with food. Same as: Tamiflu) [facility] chlordiazePOXIDE 25 mg oral capsule 2013-06-06 01:45:00 No Campos Terminella 25 mg, 1 cap, Route: PO, Drug form: CAP, QID, Dosing Weight 66.364, kg, PRN Anxiety, Start date: 06/05/13 19:45:00, Duration: 30 day, Stop date: 07/05/13 19:44:00 [facility] Solu-MEDROL 2013-06-06 00:00:00 No Enayet Rahim 20 mg, 0.5 mL, Route: IVP, Drug form: INJ, [id number], Dosing Weight 67.727, kg, Start date: 06/05/13 18:00:00, Stop date: 07/05/13 6:00:00(Same as:Solu-MEDROL, A-Methapred) [facility] albuterol 2013-06-05 22:04:00 No [...] cough, # 120 ml, 0 Refill(s) Roger Dunn acetaminophen 2013-06-05 20:49:00 No Enayet Rahim 650 [...] 07/05/13 14:48:00(Same as: Colace) (Do Not Crush) [facility] Saline Flush 0.9% 2013-06-05 20:49:00 No Enayet Rahim 5 ml, Route: IVP, Drug Form: INJ, Dosing Weight 67.727, kg, PRN, PRN Line Flush, Start date: 06/05/13 14:49:00, Duration: 30 day, Stop date: 07/05/13 14:48:00Same as: BD Posiflush Sterile [facility] Restoril 2013-06-05 18:03:00 No Enayet Rahim 30 mg, 2 cap, Route: PO, Drug form: CAP, Bedtime, Dosing Weight 67.727, kg, PRN Sleep, Start date: 06/05/13 12:03:00, Duration: 30 day, Stop date: 07/05/13 12:02:00(Same As: Restoril) [facility] normal saline 0.9% IV 1,000 mL 2013-06-05 18:02:00 No E nayet Rahim 1,000 mL, Rate: 125 ml/hr, Infuse over: 8 hr, Route: IV, Dosing Weight 67.727 kg, Total Volume: 1,000, Start date: 06/05/13 12:02:00, Duration: 30 day, Stop date: 07/05/13 12:01:00 [facility] Robitussin-AC oral syrup 2013-06-05 18:02:00 No Enayet Rahim 5 ml, Route: PO, Drug Form: LIQ, Dosing Weight 67.727, kg, Q4H, PRN Cough/Congestion, Start date: 06/05/13 12:02:00, Duration: 30 day, Stop date: 07/05/13 12:01:00(Same As: Robitussin AC) Carmen sawant [place] Levaquin 2013-06-05 18:00:00 No Enayet Rahim 500 mg, 100 mL, Route: IVPB, Drug form: INJ, [id number], Dosing Weight 67.727, kg, Start date: 06/05/13 12:00:00, Duration: 30 day, Stop date: 07/04/13 20:00:00(Same as:Levaquin) [facility] Xopenex 2013-06-05 17:57:00 No Enayet Rahim 0.63 mg, Route: NEB, PRN, Dosing Weight 67.727, kg, PRN Respiratory Protocol, Start date: 06/05/13 11:57:00, Duration: 30 day, Stop date: 07/05/13 11:56:00 [facility] prochlorperazine 10 mg oral tablet 2013-02-12 09:47:23 Yes Christion Sergo Rice 10 mg, 1 tab, PO , BID, PRN, 10 tab, Headache, Substitution Allowed, TAB [facility] NS (Bolus) IV 500 mL 2013-02-12 08:55:00 No Christion G regory Rice 500 mL, Rate: 500 ml/hr, Infuse over: 1 hr, Route: IV, Dosing Weight 67.727 kg, Total Volume: 500, Priority: STAT, Start date: 02/12/13 3:55:00, Duration: 1 doses or times, Stop date: 02/12/13 4:54:00, Bolus DoseBolus Dose [facility] Benadryl 2013-02-12 08:43:00 No Christion Sergo Rice 25 mg, Route: IVP, ONCE, Dosing Weight 67.727, kg, Priority: STAT, Start date: 02/12/13 3:43:00, Stop date: 02/12/13 3:43:00 Mem orial Shaun Reglan 2013-02-12 08:43:00 No Christion Sergo Rice 10 mg, Route: IVP, Drug form: INJ, ONCE, Dosing Weight 67.727, kg, Priority: STAT, Start date: 02/12/13 3:43:00, Stop date: 02/12/13 3:43:00 [facility] Dilaudid 2013-02-12 05:43:00 No Christion Sergo Rice 1 mg, Route: IV, ONCE, Dosing Weight 67.727, kg, Start date: 02/12/13 0:43:00, Stop date: 02/12/13 0:43:00 [facility] GI cocktail 2013-02-12 05:40:00 No Christion Sergo Ri ce 30 mL, Route: PO, Dosing Weight 67.727, kg, ONCE, STAT, Start date: 02/12/13 0:40:00, Stop date: 02/12/13 0:40:00 [facility] Dilaudid 2013-02-12 04:52:00 No Ama Trotter Rice 1 mg, Route: IV, ONCE, Dosing Weight 67.727, kg, Start date: 02/11/13 23:52:00, Stop date: 02/11/13 23:52:00 [facility] morphine Sulfate 2013-02-12 03:12:00 No Ama Thao wilfredo Rice 4 mg, Route: IVP, Drug form: INJ, ONCE, Dosing Weight 67.727, kg, Priority: STAT, Start date: 02/11/13 22:12:00, Stop date: 02/11/13 22:12:00 [facility] ondansetron 2013-02-12 03:12:00 No Ama Trotter Ri ce 4 mg, Route: IVP, Drug form: INJ, ONCE, Dosing Weight 67.727, kg, Priority: STAT, Start date: 02/11/13 22:12:00, Stop date: 02/11/13 22:12:00 [facility] Lactated Ringers Injection IV 1,000 mL 2013-02-12 03:12:00 No Ama Trotter Rice 1,000 mL, Rate: 1,000 ml/hr, Infuse over: 1 hr, Route: IV, Dosing Weight 67.727 kg, Total Volume: 1,000, Bolus infusion, Priority: STAT, Start date: 02/11/13 22:12:00, Duration: 1 doses or times, Stop date: 02/11/13 23:11:00 [facility] Cipro 750 mg oral tablet 2012-09-28 07:08:07 Yes John Vern musa Navas 750 mg, 1 tab, PO, Q12H, 6 tab, Substitution Allowed [facility] Dilaudid 2012-09-28 06:27:00 No Johnaayush Wagoner Navas 1 mg, 0.5 mL, Route: IV, Drug form: INJ, ONCE, Dosing Weight 64.545, kg, Start date: 09/28/12 1:27:00, Stop date: 09/28/12 1:27:00 [facility] 2012-09-28 05:16:00 No John Ciaran Navas 1 mg, 0.5 mL, Route: IV, Drug form: INJ, ONCE, Dosing Weight 64.545, kg, Start date: 09/28/12 0:16:00, Stop date: 09/28/12 0:16:00 [facility] NS (Bolus) IV 1,000 mL 2012-09-28 05:15:00 No John Brynn r Navas 1,000 mL, Rate: 1,000 ml/hr, Infuse over: 1 hr, Route: IV, Dosing Weight 64.545 kg, Total Volume: 1,000, Priority: STAT, Start date: 09/28/12 0:15:00, Duration: 1 doses or times, Stop date: 09/28/12 1:14:00, Bolus DoseBolus Dose [facility] morphine Sulfate 2012-09-28 05:15:00 No John Ciaran Meht a 4 mg, Route: IVP, ONCE, Dosing Weight 64.545, kg, Start date: 09/28/12 0:15:00, Stop date: 09/28/12 0:15:00 [facility] Tylenol 2012-09-28 03:12:00 No John Ciaran Navas 975 mg, 3 tab, Route: PO, Drug form: TAB, ONCE, Dosing Weight 64.545, kg, Priority: STAT, Start date: 09/27/12 22:12:00, Stop date: 09/27/12 22:12:00 [facility] Women's oral tablet 2012-09-28 02:39:16 Yes 1 tab, PO, Daily, Substitution Allowed, Maintenance [facility] magnesium sulfate 2012-09-28 02:35:00 No John Ciaran Aayush ta 2 gm, 50 mL, Route: IVPB, Drug form: INJ, ONCE, Dosing Weight 64.545, kg, Total dose = 2 gm, Start date: 09/27/12 21:35:00, Duration: 1 doses or times, Stop date: 09/27/12 21:35:00 [facility] diazepam 2012-09-28 02:17:00 No John Ciaran Navas 10 mg, 1 tab, Route: PO, Drug form: TAB, ONCE, Dosing Weight 64.545, kg, Priority: STAT, Start date: 09/27/12 21:17:00, Stop date: 09/27/12 21:17:00 [facility] Celexa 2012-09-28 02:13:31 Yes 20 mg , PO, QAM, Substitution Allowed [facility] Atarax 25 mg oral tab 2012-09-28 02:13:24 Yes 25 mg, 1 tab, PO, Bedtime, Substitution Allowed [facility] zelda Ambien 2012-09-28 02:12:48 No Substitution Allowed [facility] ondansetron 2 mg/mL injectable solution 2012-08-11 12:58:0 0 Yes Enayet Rahim 4 mg, 2 mL, IVP, Q6H, PRN, 10 mL, Nausea & Vomiting, Substitution Allowed, INJ [facility] acetaminophen-hydrocodone 325 mg-5 mg oral tablet 12:57:38 Yes Enayet Rahim 2 tab, PO, Q4H, PRN, 15 tab, Pain Score 4-6, Substitution Allowed, Maintenance, TAB [facility] nn docusate sodium 100 mg oral capsule 2012-08-10 14:00:00 No Tulio E Wendy 100 mg, 1 cap, R oute: PO, Drug form: CAP, BID, Dosing Weight 66.818, kg, Start date: 08/10/12 9:00:00, Duration: 30 day, Stop date: 09/08/12 17:00:00 [facility] Flomax 2012-08-10 13:30:00 No Vijay Ferguson Hinh 0.4 mg, 1 cap, Route: PO, Drug form: CAP, After Breakfast, Dosing Weight 66.818, kg, Start date: 08/10/12 8:30:00, Duration: 30 day, Stop date: 09/08/12 8:30:00 [facility] Lovenox 2012-08-10 11:00:00 No Tulio E Wendy 40 mg, 0.4 mL, Route: SUB-Q, Drug form: INJ, [id number], Dosing Weight 66.818, kg, Start date: 08/10/12 6:00:00, Duration: 30 day, Stop date: 09/08/12 6:00:00 [facility] METRONIDazole (SCIP) 2012-08-10 00:00:00 No Tulio Shanksanda 500 mg, 100 mL, Route: IVPB, Drug form: INJ, [id number], Dosing Weight 66.818, kg, Start date: 08/09/12 19:00:00, Duration: 3 doses or times, Stop date: 08/10/12 11:00:00 [facility] 2012-08-09 23:15:00 No Darnell T Chandler 1,000 mg, Route: IV, Drug form: INJ, ONCE, Dosing Weight 66.818, kg, PRN Pain, for > or = 50 kg, Start date: 08/09/12 18:15:00 [facility] Wren 10/325 oral tablet 2012-08-09 23:15:00 No Darnell T Chandler 1 tab, Route: PO, Drug Form: TAB, Dosing Weight 66.818, kg, Q6H, PRN Pain, Start date: 08/09/12 18:15:00, Duration: 30 day, Stop date: 09/08/12 18:14:00 [facility] hydromorphone 2012-08-09 23:15:00 No Darnell T Chandler 0.5 mg, Route: IVP, Q5Min, Dosing Weight 66.818, kg, PRN Pain Score 4-6, Start date: 08/09/12 18:15:00, Duration: 5 doses or times, Stop date: Limited # of times [facility] fentanyl 2012-08-09 23:15:00 No Darnell T Chandler 25 microgram, Route: IVP, Q5Min, Dosing Weight 66.818, kg, PRN Pain Score 4-6, Start date: 08/09/12 18:15:00, Duration: 4 doses or times, Stop date: Limited # of times [facility] flumazenil 2012-08-09 23:15:00 No Darnell T Chandler 0.2 mg, Route: IVP, PRN, Dosing Weight 66.818, kg, PRN Benzodiazepine Reversal, Initial dose, Start date: 08/09/12 18:15:00, Duration: 30 day, Stop date: 09/08/12 18:14:00 [facility] naloxone 2012-08-09 23:15:00 No Darnell Aayush Chandler 0.04 mg, Route: IVP, Q2MIN, Dosing Weight 66.818, kg, PRN Narcotic Reversal, Start date: 08/09/12 18:15:00, Duration: 8 doses or times, Stop date: Limited # of times [facility] ondansetron 2012-08-09 23:15:00 No Darnell T Chandler 4 mg, Route: IVP, ONCE, Dosing Weight 66.818, kg, PRN Nausea & Vomiting, Start date: 08/09/12 18:15:00 [facility] ciprofloxacin (SCIP) 2012-08-09 23:00:00 No Tulio E Wendy 400 mg, 200 mL, Route: IVPB, Drug form: INJ, [id number], Dosing Weight 66.818, kg, Start date: 08/09/12 18:00:00, Duration: 2 doses or times, Stop date: 08/10/12 6:00:00 [facility] Lactated Ringers Injection IV 1,000 mL 2012-08-09 22:24:00 No Tulio E Wendy 1,000 mL, Rate: 125 ml/hr, Infuse over: 8 hr, Route: IV, kg, Total Volume: 1,000, Start date: 08/09/12 17:24:00, Duration: 30 day, Stop date: 09/08/12 17:23:00 [facility] acetaminophen-hydrocodone 325 mg-5 mg oral tablet 22:24:00 No Tulio E Wendy 2 tab, Route: PO, Drug Form: TAB, Dosing Weight 66.818, kg, Q4H, PRN Pain Score 4-6, Start date: 08/09/12 17:24:00, Duration: 30 day, Stop date: 09/08/12 17:23:00 [facility] ondansetron 2012-08-09 22:24:00 No Tulio E Wendy 4 mg, 2 mL, Route: IVP, Drug form: INJ, Q6H, Dosing Weight 66.818, kg, PRN Nausea & Vomiting, Start date: 08/09/12 17:24:00, Duration: 30 day, Stop date: 09/08/12 17:23:00 [facility] diphenhydrAMINE 2012-08-09 22:24:00 No Tulio Okeefe da 25 mg, 1 tab, Route: PO, Drug form: TAB, Bedtime, Dosing Weight 66.818, kg, PRN Insomnia, Start date: 08/09/12 17:24:00, Duration: 30 day, Stop date: 09/08/12 17:23:00 [facility] Lactated Ringers IV 1,000 mL 2012-08-09 20:19:00 No Kobe Ortiz Frias 1,000 mL, Rate: 25 ml/hr, Infuse over: 40 hr, Route: IV, kg, Total Volume: 1,000, Start date: 08/09/12 15:19:00, Duration: 30 day, Stop date: 09/08/12 15:18:00 [facility] Rocephin + Sodium Chloride 0.9% IV 100 mL 2012-08-09 17:00 :00 No Tulio Nguyen 2 gm, Route: IVP B, ONCALL, Start date: 08/09/12 12:00:00, Duration: 2 day, Stop date: 08/11/12 11:59:00 [facility] 2012-[facility] 20:57:00 No Tulio George Wendy 133 ml, Route: NJ, Drug Form: SUMAN, Dosing Weight 66.818, kg, ONCE, Start date: 08/08/12 15:57:00, Stop date: 08/08/12 15:57:[address] [facility] 2012-08-08 12:05:00 No Enayet Rahim 133 ml, Route: NJ, Drug Form: SUMAN, Dosing Weight 66.818, kg, ONCE, Start date: 08/08/12 7:05:00, Stop date: 08/08/12 7:05:00 [facility] Ronen 2012-08-08 12:04:00 No Enayet Rahim 10 mg, 1 tab, Route: PO, Drug form: TAB, Bedtime, Dosing Weight 66.818, kg, PRN as needed for sleep, Start date: 08/08/12 7:04:00, Duration: 30 day, Stop date: 09/07/12 7:03:00 [facility] temazepam 2012-08-08 02:00:00 No Enayet Rahim 15 mg, 1 cap, Route: PO, Drug form: CAP, Bedtime, Dosing Weight 66.818, kg, Start date: 08/07/12 21:00:00, Duration: 30 day, Stop date: 09/05/12 21:00:00 [facility] Protonix 2012-08-07 21:30:00 No Enayet Rahim 40 mg, 1 tab, Route: PO, Drug form: ECTAB, Before Dinner, Dosing Weight 66.364, kg, Start date: 08/07/12 16:30:00, Duration: 30 day, Stop date: 09/05/12 16:30:00 [facility] Pristiq 50mg po daily*Pts own med* 2012-08-07 14:00:00 N o Enayet Rahim Pristiq 50mg po daily*Pts own med*, Kira tiq 50mg po daily*Pts own med*, Drug form: MISC, Route: PO, Daily, 08/07/12 9:00:00, Duration: 30 day, Stop date: 09/05/12 9:00:00 [facility] Pristiq 50 mg oral tablet, extended release 2012-08-07 14: 00:00 No Enayet Rahim 1 tab, Route: PO , Drug form: ERTAB, Daily, Dosing Weight 66.364, kg, Start date: 08/07/12 9:00:00, Duration: 30 day, Stop date: 09/05/12 9:00:00 [facility] diazepam 2012-08-07 14:00:00 No Enayet Rahim 10 mg, 1 tab, Route: PO, Drug form: TAB, QID, Dosing Weight 66.818, kg, Start date: 08/07/12 9:00:00, Duration: 30 day, Stop date: 09/05/12 21:00:00 [facility] Milk of Magnesia 2012-08-07 12:13:00 No Enayet Rahim 60 ml, Route: PO, Drug Form: SUSP, Dosing Weight 66.818, kg, ONCE, PRN as needed for constipation, Start date: 08/07/12 7:13:00 [facility] Fleet Enema 2012-08-07 12:12:00 No Enayet Rahim 133 ml, Route: [place], Drug Form: SUMAN, Dosing Weight 66.818, kg, ONCE, Start date: 08/07/12 7:12:00, Stop date: 08/07/12 7:12:00 [facility] Her escalona Benadryl 2012-08-07 05:19:00 No Enayet Rahim 25 mg, 0.5 mL, Route: IV, Drug form: INJ, Q4H, Dosing Weight 66.818, kg, PRN as needed for itching, Start date: 08/07/12 0:19:00, Duration: 30 day, Stop date: 09/06/12 0:18:00 [facility] hydromorphone 2012-08-06 22:42:00 No Enayet Rahim 1.5 mg, 1.5 mL, Route: IV, Drug form: SOLN, Q3H, Dosing Weight 66.818, kg, PRN Pain Score 6-10, Start date: 08/06/12 17:42:00, Duration: 30 day, Stop date: 09/05/12 17:41:00 [facility] Protonix 2012-08-06 21:30:00 No Enayet Rahim 40 mg, Route: IVP, Drug form: INJ, Before Dinner, Dosing Weight 66.364, kg, Start date: 08/06/12 16:30:00, Duration: 30 day, Stop date: 09/04/12 16:30:00 [facility] Pristiq 50 mg oral tablet, extended release 2012-08-06 21: 01:47 Yes Enayet Rahim 50 mg, 1 tab, PO, Daily, 30 tab, Substit ution Allowed, ERTAB [facility] Levaquin 2012-08-06 20:00:00 No Enayet Rahim 500 mg, 100 mL, Route: IVPB, Drug form: INJ, [id number], Dosing Weight 66.364, kg, Start date: 08/06/12 15:00:00, Duration: 30 day, Stop date: 09/04/12 15:00:00 [facility] enoxaparin 2012-08-06 20:00:00 No Enayet Rahim 40 mg, 0.4 mL, Route: SUB-Q, Drug form: INJ, [id number], Dosing Weight 66.364, kg, Start date: 08/06/12 15:00:00, Duration: 30 day, Stop date: 09/04/12 15:00:00 [facility] Restoril 2012-08-06 19:15:00 No Enayet Rahim 30 mg, 2 cap, Route: PO, Drug form: CAP, Bedtime, Dosing Weight 66.364, kg, PRN Sleep, Start date: 08/06/12 14:15:00, Duration: 30 day, Stop date: 09/05/12 14:14:00 [facility] Phenergan + Sodium Chloride 0.9% IV 50 mL 2012-08-06 19:14 :00 No Enayet Rahim 12.5 mg, 0.5 mL, Route: IVPB, Q4H, Dosing Weight 66.364, kg, PRN Nausea & Vomiting, Start date: 08/06/12 14:14:00, Duration: 30 day, Stop date: 09/05/12 14:13:00 [facility] Dilaudid 2012-08-06 19:13:00 No Enayet Rahim 1 mg, 1 mL, Route: IV, Drug form: SOLN, Q3H, Dosing Weight 66.364, kg, PRN Pain, Start date: 08/06/12 14:13:00, Duration: 30 day, Stop date: 09/05/12 14:12:00 [facility] D5LR 1,000 mL 2012-08-06 19:08:00 No Enayet Rahim 1,000 mL, Rate: 100 ml/hr, Infuse over: 10 hr, Route: IV, kg, Total Volume: 1,000, Start date: 08/06/12 14:08:00, Duration: 30 day, Stop date: 09/05/12 14:07:00 [facility] Bentyl 2012-07-19 20:23:00 No Enayet Rahim 10 mg, 1 cap, Route: PO, Drug form: CAP, Q6H, Dosing Weight 66.364, kg, PRN For Pain, Start date: 07/19/12 14:23:00, Duration: 30 day, Stop date: 08/18/12 14:22:00 [facility] Fioricet 2012-07-19 13:23:00 No Enayet Rahim 1 tab, Route: PO, Drug Form: TAB, Dosing Weight 66.364, kg, Q4H, PRN Headache, Start date: 07/19/12 7:23:00, Duration: 30 day, Stop date: 08/18/12 7:22:00 [facility] zolpidem 2012-07-19 03:00:00 No Enayet Rahim 20 mg, 2 tab, Route: PO, Drug form: TAB, Bedtime, Dosing Weight 66.364, kg, Start date: 07/18/12 21:00:00, Duration: 30 day, Stop date: 08/16/12 21:00:00 [facility] citalopram 2012-07-19 03:00:00 No Enayet Rahim 10 mg, 1 tab, Route: PO, Drug form: TAB, Bedtime, Dosing Weight 66.364, kg, Start date: 07/18/12 21:00:00, Duration: 30 day, Stop date: 08/16/12 21:00:00 [facility] influenza virus vaccine, inactivated 2012-07-18 19:30:00 No SYSTEM SYSTEM 0.5 ml, Route: IM, Drug Form : INJ, Start date: 07/18/12 13:30:00, Stop date: 07/18/12 13:30:00 [facility] Phenergan + Sodium Chloride 0.9% IV 50 mL 2012-07-18 15:49 :00 No Enayet Rahim 12.5 mg, 0.5 mL, Route: IVPB, ONCE, Dosing Weight 66.364, kg, Start date: 07/18/12 9:49:00, Stop date: 07/18/12 9:49:00 [facility] Valium 2012-07-18 15:00:00 No Enayet Rahim 10 mg, 2 tab, Route: PO, Drug form: TAB, QID, Start date: 07/18/12 9:00:00, Duration: 30 day, Stop date: 08/16/12 21:00:00 [facility] diazepam 2012-07-18 15:00:00 No Enayet Rahim 10 mg, Route: PO, Drug form: TAB, QID, Dosing Weight 66.364, kg, Start date: 07/18/12 9:00:00, Duration: 30 day, Stop date: 08/16/12 21:00:00 [facility] influenza virus vaccine, inactivated 2012-07-18 15:00:00 No SYSTEM SYSTEM 0.5 ml, Route: IM, Drug Form : INJ, Daily, Start date: 07/18/12 9:00:00, Duration: 1 doses or times, Stop date: 07/18/12 9:00:00 [facility] Flomax 2012-07-18 14:30:00 No Enayet Rahim 0.4 mg, 1 cap, Route: PO, Drug form: CAP, After Breakfast, Dosing Weight 66.364, kg, Start date: 07/18/12 8:30:00, Duration: 30 day, Stop date: 08/16/12 8:30:00 [facility] D5W 1/2NS + KCL 20mEq/L 1000ml (Premix) 1,000 mL 12:37:00 No Enayet Rahim 1,000 mL, Rate: 150 ml/hr, Infuse over: 6.7 hr, Route: IV, kg, Total Volume: 1,000, Start date: 07/18/12 6:37:00, Duration: 30 day, Stop date: 08/17/12 6:36:00 [facility] diazepam 2012-07-18 12:10:00 No Enayet Rahim 10 mg, 2 tab, Route: PO, Drug form: TAB, ONCE, Dosing Weight 66.364, kg, PRN Seizure, Start date: 07/18/12 6:10:00 [facility] diazepam 2012-07-18 11:26:00 No Enayet Rahim 10 mg, 2 tab, Route: PO, Drug form: TAB, QID, Dosing Weight 66.364, kg, PRN, Start date: 07/18/12 5:26:00, Duration: 30 day, Stop date: 08/17/12 5:25:00, QID [facility] Dilaudid 2012-07-18 06:29:00 No Enayet Rahim 1.5 mg, 1.5 mL, Route: IV, Drug form: SOLN, Q4H, Dosing Weight 66.364, kg, PRN Pain, Start date: 07/18/12 0:29:00, Stop date: 08/17/12 0:28:00 [facility] morphine Sulfate 2012-07-18 02:23:00 No Enayet Rahim 2 mg, 1 mL, Route: IVP, Drug form: INJ, Q4H, Dosing Weight 66.364, kg, PRN Pain Score 4-6, Start date: 07/17/12 20:23:00, Duration: 30 day, Stop date: 08/16/12 20:22:00 [facility] Saline Flush 0.9% 2012-07-18 02:23:00 No Enayet Rahim 5 ml, Route: IVP, Drug Form: INJ, Dosing Weight 66.364, kg, PRN, PRN Line Flush, Start date: 07/17/12 20:23:00, Duration: 30 day, Stop date: 08/16/12 21:22:00 [facility] citalopram 10 mg oral tablet 2012-07-18 01:38:45 Yes Jenny yet Rahim 10 mg, 1 tab, PO, Bedtime, 30 tab, Substitution Allowed, TAB [facility] Flomax 0.4 mg oral capsule 2012-07-18 01:38:09 Yes Enaye t Rahim 0.4 mg, 1 cap, PO, After Breakfast, 30 cap, Substitution Allowed, CAP [facility] Bactrim DS oral tablet 2012-07-18 01:37:42 Yes 1 tab, PO, BID, 6 tab, Substitution Allowed, Maintenance Violetta Dunn Benadryl 2012-07-18 00:05:00 No Antonio Riojas 12.5 mg, Route: IVP, ONCE, Dosing Weight 66.364, kg, Priority: STAT, Start date: 07/17/12 18:05:00, Stop date: 07/17/12 18:05:00 [facility] floyd Milian 2012-07-17 23:47:00 No Asem Souman 4 mg, Route: IVP, Drug form: INJ, ONCE, Dosing Weight 66.364, kg, PRN Nausea, Priority: STAT, Start date: 07/17/12 17:47:00 [facility] morphine Sulfate 2012-07-17 23:47:00 No Asem Souman 4 mg, Route: IVP, ONCE, Dosing Weight 66.364, kg, Start date: 07/17/12 17:47:00, Stop date: 07/17/12 17:47:00 [facility] Saline Flush 0.9% 2012-07-17 21:00:00 No Asem Souman 5 ml, Route: IVP, Drug Form: INJ, Dosing Weight 66.364, kg, PRN, PRN Line Flush, Start date: 07/17/12 15:00:00, Duration: 30 day, Stop date: 08/16/12 15:59:00 [facility] LORAzepam 2012-07-17 21:00:00 No Asem Souman 1 mg, 0.5 mL, Route: IVP, Drug form: INJ, ONCE, Dosing Weight 66.364, kg, Priority: STAT, Start date: 07/17/12 15:00:00, Stop date: 07/17/12 15:00:00 [facility] Ativan 2012-07-16 08:47:00 No Sergo Kutsen 1 mg, Route: IVP, ONCE, Dosing Weight 66.364, kg, Priority: STAT, Start date: 07/16/12 2:47:00, Stop date: 07/16/12 2:47:00 [facility] pantoprazole 2012-07-16 05:31:00 No Sergo Kutsen 40 mg, Route: IVP, ONCE, Dosing Weight 66.364, kg, For IV push reconstitute with 10 ml 0.9% sodium chloride and push over at least 3 minutes, Priority: STAT, Start date: 07/15/12 23:31:00, Stop date: 07/15/12 23:31:00 [facility] Sodium Chloride 0.9% (Bolus) IV 500 mL 2012-07-16 05:31:00 No Sergo Kutsen 500 mL, Rate: 1, 000 ml/hr, Infuse over: 30 minutes, Route: IV, kg, Total Volume: 500, Priority: STAT, Start date: 07/15/12 23:31:00, Duration: 1 doses or times, Stop date: 07/16/12 0:00:00 [facility] Saline Flush 0.9% 2012-07-16 05:31:00 No Sergo Kutsen 5 mL, Route: IVP, Drug Form: INJ, Dosing Weight 66.364, kg, PRN, PRN Line Flush, Start date: 07/15/12 23:31:00, Duration: 24 hr, Stop date: 07/16/12 23:30:00 [facility] ondansetron 2012-07-16 05:31:00 No Sergo Kutsen 4 mg, Route: IVP, ONCE, Dosing Weight 66.364, kg, Priority: STAT, Start date: 07/15/12 23:31:00, Stop date: 07/15/12 23:31:00 [facility] 2012-07-16 05:31:00 No Sergo Kutsen 1 mg, Route: IVP, ONCE, Dosing Weight 66.364, kg, Priority: STAT, Start date: 07/15/12 23:31:00, Stop date: 07/15/12 23:31:00 [facility] levofloxacin 500 mg/100 mL intravenous solution 2012-07-11 13:20:04 Yes Enayet Rahim 500 mg, 100 mL, IVPB, [id number], 7 mL, Substitution Allowed, INJ [facility] Wren 5/325 oral tablet 2012-07-11 13:19:45 Yes Enayet R ahim 1 tab, PO, Q4H, PRN, 12 tab, for pain, Substitution Allowed, Maintenance, TAB [facility] Wren 10/325 oral tablet 2012-07-11 13:18:00 No Enayet Rahim 1 tab, Route: PO, Drug Form: TAB, Dosing Weight 66.818, kg, Q6H, PRN Pain, Start date: 07/11/12 7:18:00, Duration: 30 day, Stop date: 08/10/12 7:17:00 [facility] Protonix 2012-07-10 22:30:00 No Enayet Rahim 40 mg, 1 tab, Route: PO, Drug form: ECTAB, Before Dinner, Dosing Weight 59.091, kg, Start date: 07/10/12 16:30:00, Duration: 30 day, Stop date: 08/08/12 16:30:00 [facility] amitriptyline 2012-07-10 03:00:00 No Enayet Rahim 50 mg, 1 tab, Route: PO, Drug form: TAB, Bedtime, Dosing Weight 66.818, kg, Start date: 07/09/12 21:00:00, Duration: 30 day, Stop date: 08/07/12 21:00:00 [facility] Ambien 2012-07-09 23:41:00 No Enayet Rahim 10 mg, 1 tab, Route: PO, Drug form: TAB, Bedtime, Dosing Weight 66.818, kg, PRN Insomnia, Start date: 07/09/12 17:41:00, Duration: 30 day, Stop date: 08/08/12 17:40:00 [facility] Protonix 2012-07-09 22:30:00 No Enayet Rahim 40 mg, Route: IVP, Drug form: INJ, Before Dinner, Dosing Weight 59.091, kg, Start date: 07/09/12 16:30:00, Duration: 30 day, Stop date: 08/07/12 16:30:00 [facility] diazepam 2012-07-09 20:57:00 No Enayet Rahim 10 mg, 2 tab, Route: PO, Drug form: TAB, Q6H, Dosing Weight 66.818, kg, Start date: 07/09/12 14:57:00, Stop date: 08/08/12 10:00:00 [facility] enoxaparin 2012-07-09 18:00:00 No Enayet Rahim 40 mg, 0.4 mL, Route: SUB-Q, Drug form: INJ, [id number], Dosing Weight 59.091, kg, Start date: 07/09/12 12:00:00, Duration: 30 day, Stop date: 08/07/12 13:00:00 [facility] Levaquin 2012-07-09 18:00:00 No Enayet Rahim 500 mg, 100 mL, Route: IVPB, Drug form: INJ, [id number], Dosing Weight 59.091, kg, Start date: 07/09/12 12:00:00, Duration: 30 day, Stop date: 08/07/12 13:00:00 [facility] Phenergan + Sodium Chloride 0.9% IV 50 mL 2012-07-09 17:12 :00 No Enayet Rahim 12.5 mg, 0.5 mL, Route: IVPB, Q4H, Dosing Weight 59.091, kg, PRN Nausea & Vomiting, Start date: 07/09/12 11:12:00, Stop date: 08/08/12 11:11:00 [facility] Dilaudid 2012-07-09 17:12:00 No Enayet Rahim 1 mg, 1 mL, Route: IV, Drug form: SOLN, Q3H, Dosing Weight 59.091, kg, PRN Pain, Start date: 07/09/12 11:12:00, Duration: 30 day, Stop date: 08/08/12 11:11:00 [facility] acetaminophen 2012-07-09 17:08:00 No Enayet Rahim 650 mg, 2 tab, Route: PO, Drug form: TAB, Q4H, Dosing Weight 59.091, kg, PRN Pain/Fever, Start date: 07/09/12 11:08:00, Duration: 30 day, Stop date: 08/08/12 11:07:00 [facility] NS + KCL 20mEq/L 1000ml (Premix) 1,000 mL 2012-07-09 17:08 :00 No Enayet Rahim 1,000 mL, Rate: 100 ml/hr, Infuse over: 10 hr, Route: IV, kg, Total Volume: 1,000, Start date: 07/09/12 11:08:00, Duration: 30 day, Stop date: 08/08/12 11:07:00 [facility] Saline Flush 0.9% 2012-07-09 17:08:00 No Enayet Rahim 5 ml, Route: IVP, Drug Form: INJ, Dosing Weight 59.091, kg, PRN, PRN Line Flush, Start date: 07/09/12 11:08:00, Duration: 30 day, Stop date: 08/08/12 12:07:00 [facility] temazepam 2012-07-09 17:08:00 No Enayet Rahim 15 mg, 1 cap, Route: PO, Drug form: CAP, Bedtime, Dosing Weight 59.091, kg, PRN Insomnia, Start date: 07/09/12 11:08:00, Duration: 30 day, Stop date: 08/08/12 11:07:00 [facility] docusate 2012-07-09 17:08:00 No Enayet Rahim 100 mg, 1 cap, Route: PO, Drug form: CAP, BID, Dosing Weight 59.091, kg, PRN Constipation, Start date: 07/09/12 11:08:00, Duration: 30 day, Stop date: 08/08/12 11:07:00 [facility] Wren 5/325 oral tablet 2012-07-08 10:25:33 Yes Enayet R ahim 1 tab, PO, Q4H, PRN, 12 tab, for pain, Substitution Allowed, Maintenance, TAB [facility] Sodium Chloride 0.9% (Bolus) IV 2012-07-08 08:00:00 No Asem Souman 500 mL, Route: IV, Dosing Weight 59.091, kg, ONCE, Bolus Dose - infuse over 1 hr, STAT, Start date: 07/08/12 2:00:00, Stop date: 07/08/12 2:00:00 [facility] Zofran 2012-07-08 08:00:00 No Asem Souman 4 mg, Route: IVP, Drug form: INJ, ONCE, Dosing Weight 59.091, kg, PRN Nausea, Priority: STAT, Start date: 07/08/12 2:00:00 [facility] morphine Sulfate 2012-07-08 07:59:00 No Asem Souman 4 mg, Route: IV, ONCE, Dosing Weight 59.091, kg, Start date: 07/08/12 1:59:00, Stop date: 07/08/12 1:59:00 [facility] Ultram 50 mg oral tablet 2012-07-07 08:16:34 Yes Antonio Hope 50 mg, 1 tab, PO, Q4H, PRN, 12 tab, pain, Substitution Allowed [facility] Benadryl 2012-07-07 07:11:00 No Antonio Hope 25 mg, Route: PO, Drug form: CAP, ONCE, Dosing Weight 66.364, kg, Priority: STAT, Start date: 07/07/12 1:11:00, Stop date: 07/07/12 1:11:00 [facility] ondansetron 2012-07-07 06:05:00 No Antonio Hope 4 mg, 2 mL, Route: IVP, Drug form: INJ, ONCE, Dosing Weight 66.364, kg, Priority: STAT, Start date: 07/07/12 0:05:00, Stop date: 07/07/12 0:05:00 [facility] Sodium Chloride 0.9% (Bolus) IV 2012-07-07 06:05:00 No Antonio Hope 500 mL, 1000 ml/hr, Route: IV, Drug Form: INJ, Dosing Weight 66.364, kg, ONCE, Bolus at 1,000 ml/hr, STAT, Start date: 07/07/12 0:05:00, Stop date: 07/07/12 0:05:00 [facility] Saline Flush 0.9% 2012-07-07 06:05:00 No Antonio bailey 5 mL, Route: IVP, Drug Form: INJ, Dosing Weight 66.364, kg, PRN, PRN Line Flush, Start date: 07/07/12 0:05:00, Duration: 24 hr, Stop date: 07/08/12 0:04:00 [facility] morphine Sulfate 2012-07-07 06:05:00 No Antonio cole 4 mg, 2 mL, Route: IVP, Drug form: INJ, ONCE, Dosing Weight 66.364, kg, Priority: STAT, Start date: 07/07/12 0:05:00, Stop date: 07/07/12 0:05:00 [facility] droperidol 2012-05-31 15:20:00 No Antonio Hope 1.25 mg, Route: IVP, ONCE, Dosing Weight 65, kg, PRN Nausea & Vomiting, Start date: 05/31/12 9:20:00 [facility] Reglan 2012-05-31 14:31:00 No Antonio Hope 10 mg, Route: IVP, ONCE, Dosing Weight 65, kg, Priority: STAT, Start date: 05/31/12 8:31:00, Stop date: 05/31/12 8:31:00 [facility] Zofran 2012-05-31 13:57:00 No Antonio Gravesehan 4 mg, 2 mL, Route: IVP, Drug form: INJ, ONCE, Dosing Weight 65, kg, Priority: STAT, Start date: 05/31/12 7:57:00, Stop date: 05/31/12 7:57:00 [facility] Sodium Chloride 0.9% (Bolus) IV 2012-05-31 13:57:00 No Antonio Hope 1,000 mL, 1000 ml/hr , Route: IV, Drug Form: INJ, Dosing Weight 65, kg, ONCE, Bolus Dose. Infuse over 1 hour., STAT, Start date: 05/31/12 7:57:00, Stop date: 05/31/12 7:57:00 [facility] Saline Flush 0.9% 2012-05-31 13:57:00 No Antonio kenneywillian 5 ml, Route: IVP, Drug Form: INJ, Dosing Weight 65, kg, PRN, PRN Line Flush, Start date: 05/31/12 7:57:00, Duration: 30 day, Stop date: 06/30/12 7:56:00 [facility] Esgic 2012-04-08 23:54:00 No Temi Forrest 1 tab, Route: PO, Drug Form: TAB, ONCE, Start date: 04/08/12 17:54:00, Stop date: 04/08/12 17:54:00 [facility] Midrin 2012-04-08 23:31:00 No Temi Forrest 1 tab, Route: PO, Drug Form: CAP, Dosing Weight 61.818, kg, ONCE, Start date: 04/08/12 17:31:00, Stop date: 04/08/12 17:31:00 [facility] ODT 4 mg oral tablet, disintegrating 2012-04-08 23: 20:49 Yes Temi Forrest 4 mg, 1 tab, P O, BID, PRN, Dissolve tab under tongue, 10 tab, Nausea and Vomiting, Substitution AllowedDissolve tab under tongue [facility] 2012-04-08 23:04:00 No Temi Forrest 4 mg, Route: IVP, Drug form: INJ, ONCE, Dosing Weight 61.818, kg, Priority: STAT, Start date: 04/08/12 17:04:00, Stop date: 04/08/12 17:04:00 [facility] Mot[facility] 2012-04-08 22:27:00 No Temi PintoRocioJosr 800 mg, Route: PO, Drug form: TAB, ONCE, Dosing Weight 61.818, kg, Priority: STAT, Start date: 04/08/12 16:27:00, Stop date: 04/08/12 16:27:00 [facility] EpiPen Auto-Injector 0.3 mg injectable kit 2012-02-17 00:1 8:09 Yes Isolde Sasam Aguhar 0.3 mg, IM, ONCE, 1 kit, Substitution Allowed, SOLN [facility] epinephrine 1 mg/mL injectable solution 2012-02-16 21:21:0 0 No Isolde Sasam Aguhar 0.3 mg, Route: I M, ONCE, Dosing Weight 61.818, kg, Priority: STAT, Start date: 02/16/12 16:21:00, Stop date: 02/16/12 16:21:00 [facility] diphenhydrAMINE 2012-02-16 21:13:00 No Yoel Avilaam Klarissa philomena 25 mg, Route: IVP, ONCE, Dosing Weight 61.818, kg, Priority: STAT, Start date: 02/16/12 16:13:00, Stop date: 02/16/12 16:13:00 [facility] LORAzepam 2012-02-16 21:13:00 No Isolde Sasam Aguhar 1 mg, Route: PO, ONCE, Dosing Weight 61.818, kg, Priority: STAT, Start date: 02/16/12 16:13:00, Stop date: 02/16/12 16:13:00 [facility] epinephrine topical 1:1000 solution 2012-02-16 21:13:00 No Isolde Sasam Aguhar 0.3 mL, Route: I M, ONCE, Start date: 02/16/12 16:13:00, Stop date: 02/16/12 16:13:00 [facility] famotidine 2012-02-16 21:13:00 No Isolde Sasam Aguhar 20 mg, Route: IVP, ONCE, Dosing Weight 61.818, kg, Priority: STAT, Start date: 02/16/12 16:13:00, Stop date: 02/16/12 16:13:00 M jeremy Shaun NS 500 mL 2012-02-16 21:12:00 No Yoel Leblanc Aguhar 500 mL, Rate: 1,000 ml/hr, Infuse over: 0.5 hr, Route: IV, Dosing Weight 61.818 kg, Total Volume: 500, Start date: 02/16/12 16:12:00, Duration: 1 doses or times, Stop date: 02/16/12 16:41:00, Bolus DoseBolus Dose [facility] Shaun Toradol 30 mg/mL injectable solution 2012-01-25 05:13:00 No Asem Souman 30 mg, Route: IV, Drug form: INJ, ONCE, Dosing Weight 62.727, kg, Priority: STAT, Start date: 01/25/12 0:13:00, Stop date: 01/25/12 0:13:00 Roger Dunn Sodium Chloride 0.9% (Bolus) IV 1000 mL 2012-01-25 02:58:00 No Asem Souman 1,000 mL, Rate: 1,00 0 ml/hr, Infuse over: 1 hr, Route: IV, kg, Total Volume: 1,000, Bolus Dose, Priority: STAT, Start date: 01/24/12 21:58:00, Duration: 1 doses or times, Stop date: 01/24/12 22:57:00 Roger Dunn MiraLax 2012-01-02 22:00:00 No Kaylee Houstoneen Matheuscarole Dee eder 17 gm, 1 pkt, Route: PO, Drug form: PWDR, BID, kg, Start date: 01/02/12 17:00:00, Duration: 30 day, Stop date: 02/01/12 9:00:00 [facility] vitamin A & D topical 2012-01-02 02:00:00 No Ensayet h im 1 appl, Route: TOP, QID, Drug form: OINT, Start date: 01/01/12 21:00:00, Duration: 30 day, Stop date: 01/31/12 17:00:00 Herbert Lockett GoLYTELY 2012-01-01 22:17:00 No Kaylee Jarvis Surap aneni 4,000 ml, Route: PO, Drug Form: PDR/REC, kg, ONCE, Start date: 01/01/12 17:17:00, Duration: 1 doses or times, Stop date: 01/01/12 17:17:00 [facility] Zofran 2012-01-01 19:09:00 No Kaylee Jarvis Surapan gabe 4 mg, 2 mL, Route: IVP, Drug form: INJ, Q6H, kg, PRN Nausea, Start date: 01/01/12 14:09:00, Duration: 30 day, Stop date: 01/31/12 14:08:00 [facility] Ativan 2012-01-01 16:02:00 No Enayet Rahim 1 mg, 0.5 mL, Route: IV, Drug form: INJ, Q4H, kg, PRN Anxiety, Priority: NOW, Start date: 01/01/12 11:02:00, Duration: 30 day, Stop date: 01/31/12 11:01:00 [facility] Pristiq 50 mg oral tablet, extended release 2012-01-01 14: 00:00 No Enayet Rahim 50 mg, 1 tab, Ro kwethluk: PO, Drug form: ERTAB, Daily, Dosing Weight 66.818, kg, Start date: 01/01/12 9:00:00, Duration: 30 day, Stop date: 01/30/12 9:00:00 [facility] Protonix 2012-01-01 14:00:00 No [...] Duration: 30 day, Stop date: 01/30/12 9:00:00 [facility] Saline Flush 0.9% 2012-01-01 13:33:00 No Enayet Rahim 5 ml, Route: IVP, Drug Form: INJ, kg, PRN, PRN Line Flush, Start date: 01/01/12 8:33:00, Duration: 30 day, Stop date: 01/31/12 8:32:00 [facility] Sodium Chloride 0.45% IV 1,000 mL 2012-01-01 13:33:00 No Enayet Rahim 1,000 mL, Rate: 125 ml/hr, Infuse over: 8 hr, Route: IV, Dosing Weight 66.818 kg, Total Volume: 1,000, Start date: 01/01/12 8:33:00, Duration: 30 day, Stop date: 01/31/12 8:32:00 [facility] ondansetron 2012-01-01 13:33:00 No Enayet Rahim 4 mg, 2 mL, Route: IVP, Drug form: INJ, ONCE, kg, PRN Nausea & Vomiting, Start date: 01/01/12 8:33:00 [facility] Esgic 2012-01-01 05:36:00 No Enayet Rahim 1 tab, Route: PO, Drug Form: TAB, Q4H, PRN Other -See Comment, Start date: 01/01/12 0:36:00, Duration: 30 day, Stop date: 01/31/12 0:35:00 Carmen sawant [place] temazepam 2012-01-01 04:59:00 No Enayet Rahim 15 mg, 1 cap, Route: PO, Drug form: CAP, Bedtime, kg, Start date: 12/31/11 23:59:00, Duration: 30 day, Stop date: 01/30/12 21:00:00 [facility] nitroglycerin 0.4 mg sublingual tablet 2012-01-01 04:44:00 No Enayet Rahim 0.4 mg, 1 tab, Route : SL, Drug form: TAB, Q5Min, PRN Chest Pain, Start date: 12/31/11 23:44:00, Duration: 30 day, Stop date: 01/30/12 23:43:00 [facility] atropine 2012-01-01 04:43:00 No Enayet Rahim 0.5 mg, 5 mL, Route: IVP, Drug form: INJ, PRN, PRN Bradycardia, Start date: 12/31/11 23:43:00, Duration: 30 day, Stop date: 01/30/12 23:42:00 [facility] [place] Dunn trazodone 2012-01-01 02:29:00 No Enayet Rahim 150 mg, 3 tab, Route: PO, Drug form: TAB, Bedtime, kg, PRN Sleep, Start date: 12/31/11 21:29:00, Duration: 30 day, Stop date: 01/30/12 21:28:00 [facility] NS + KCL 20mEq/L 1000ml (Premix) 1,000 mL 2012-01-01 02:27 :00 No Enayet Rahim 1,000 mL, Rate: 125 ml/hr, Infuse over: 8 hr, Route: IV, Dosing Weight 66.818 kg, Total Volume: 1,000, Start date: 12/31/11 21:27:00, Duration: 30 day, Stop date: 01/30/12 21:26:00 [facility] [place] trazodone 150 mg oral tablet 2012-01-01 02:14:28 Yes Jenny yet Rahim 150 mg, 1 tab, PO, Bedtime, PRN, 30 tab, insomnia (for waking up after taking other sleep meds), Substitution Allowed, TAB [facility] tem[facility]am 15 mg oral capsule 2012-01-01 02:12:52 Yes Jenny yet Rahim 15 mg, 1 cap, PO, Bedtime, Substitution Allowed, with zolpidem for PTSDwith zolpidem for PTSD [facility] zolpidem 10 mg oral tablet 2012-01-01 02:12:02 Yes 20 mg, 2 tab, PO, Bedtime, Substitution Allowed, with temazepam for PTSDwith temazepam for PTSD [facility] Fioricet 2012-01-01 00:57:00 No Antonio Hope 1 tab, Route: PO, Drug Form: TAB, kg, ONCE, Start date: 12/31/11 19:57:00, Stop date: 12/31/11 19:57:00 [facility] Zofran 2012-01-01 00:27:00 No Antonio Hpoe 4 mg, Route: PO, ONCE, Dosing Weight 66.818, kg, Start date: 12/31/11 19:27:00, Stop date: 12/31/11 19:27:00 [facility] acetaminophen 2011-12-31 23:21:00 No Antonio Escamilla an 975 mg, 3 tab, Route: PO, Drug form: TAB, ONCE, kg, Priority: STAT, Start date: 12/31/11 18:21:00, Stop date: 12/31/11 18:21:00 [facility] Sodium Chloride 0.9% (Bolus) IV 1,000 mL 2011-12-31 23:20: 00 No Antonio Hope 1,000 mL, Rate: 1,000 ml/hr, Infuse over: 1 hr, Route: IV, Dosing Weight 66.818 kg, Total Volume: 1,000, Bolus Dose, Priority: STAT, Start date: 12/31/11 18:20:00, Duration: 1 doses or times, Stop date: 12/31/11 19:19:00 [facility] 2011-12-31 05:45:00 No Sergo Kumillaen 4 mg, Route: IVP, Drug form: INJ, ONCE, Dosing Weight 66.875, kg, Priority: STAT, Start date: 12/31/11 0:45:00, Stop date: 12/31/11 0:45:00 [facility] orial [place] morphine Sulfate 2011-12-31 05:13:00 No Sergo Kutsen 2 mg, Route: IVP, ONCE, Dosing Weight 66.875, kg, Start date: 12/31/11 0:13:00, Stop date: 12/31/11 0:13:00 [facility] Saline Flush 0.9% 2011-12-31 04:07:00 No Sergo Kutsen 5 ml, Route: IVP, Drug Form: INJ, kg, PRN, PRN Line Flush, Start date: 12/30/11 23:07:00, Duration: 24 hr, Stop date: 12/31/11 23:06:00 [facility] NS (Bolus) IV 1,000 mL 2011-10-16 06:26:00 No Rajinder Biswas 1,000 mL, Rate: 1,000 ml/hr, Infuse over: 1 hr, Route: IV, Dosing Weight 63 kg, Total Volume: 1,000, Priority: STAT, Start date: 10/16/11 1:26:00, Duration: 1 doses or times, Stop date: 10/16/11 2:25:00, Bolus DoseBolus Dose Roger Dunn Fioricet with Codeine oral capsule 2011-10-10 19:17:23 Y es Kaisen Fang 2 cap, PO, Q4H, PRN, 20 cap, for headach e, Substitution Allowed, Maintenance, CAP Roger Dunn Pristiq 50 mg oral tablet, extended release 2011-10-10 14: 00:00 No Kaisen Fang 50 mg, 1 tab, Ro kwethluk: PO, Drug form: ERTAB, Daily, Start date: 10/10/11 9:00:00, Duration: 30 day, Stop date: 11/08/11 9:00:00 Roger Dunn Pristiq 50mg 2011-10-10 14:00:00 No Kaisen Fang Pristiq 50mg, (pt's own med), Drug form: MISC, Route: PO, Daily, 10/10/11 9:00:00, Duration: 30 day, Stop date: 11/08/11 9:00:00 Roger barrientos Benadryl 2011-10-10 00:07:00 No Kaisen Fang 25 mg, 0.5 mL, Route: IV, Drug form: INJ, QID, PRN as needed for allergy symptoms, Start date: 10/09/11 19:07:00, Duration: 30 day, Stop date: 11/08/11 19:06:00 [facility] Shaun diazepam 2011-10-09 22:00:00 No Kaisen Fang 10 mg, 1 tab, Route: PO, Drug form: TAB, QID, Start date: 10/09/11 17:00:00, Duration: 30 day, Stop date: 11/08/11 13:00:00 Roger Ordoñezann Fioricet with Codeine 2011-10-09 21:33:00 No Kaisen Fan g Fioricet with Codeine, (pt's own med), Drug form: MISC, Route: PO, Q4H, PRN Pain, 10/09/11 16:33:00, Duration: 30 day, Stop date: 11/08/11 16:32:00 [facility] 2011-10-09 21:29:00 No Kaisen Fang 1 tab, Route: PO, Drug Form: TAB, Q4H, PRN Headache, Start date: 10/09/11 16:29:00, Duration: 30 day, Stop date: 11/08/11 16:28:00 [facility] with Codeine 2011-10-09 21:28:00 No Kaisen Fan g 1 cap, Route: PO, Drug Form: CAP, Q4H, PRN Headache, Start date: 10/09/11 16:28:00, Duration: 30 day, Stop date: 11/08/11 16:27:00 [facility] 2011-10-09 20:54:00 No Kaisen Fang 20 mg, 2 tab, Route: PO, Drug form: TAB, Bedtime, PRN Sleep, Start date: 10/09/11 15:54:00, Duration: 30 day, Stop date: 11/08/11 15:53:00 [facility] 2011-10-09 20:27:00 No Kaisen Fang 600 mg, 3 tab, Route: PO, Drug form: TAB, QID, PRN Pain, Start date: 10/09/11 15:27:00, Duration: 30 day, Stop date: 11/08/11 15:26:00 [facility] trazodone 50 mg oral tablet 2011-10-09 20:26:00 No David en Fang 50 mg, 1 tab, Route: PO, Drug form: TAB, Bedtime, PRN Anxiety, Start date: 10/09/11 15:26:00, Duration: 30 day, Stop date: 11/08/11 15:25:00 [facility] 2011-10-09 20:26:00 No Kaisen Fang 25 mg, Route: PO, Drug form: ERTAB, Bedtime, PRN as needed for sleep, Start date: 10/09/11 15:26:00, Duration: 30 day, Stop date: 11/08/11 15:25:00 [facility] Tylenol 2011-10-09 17:08:00 No Kaisen Fang 650 mg, 2 tab, Route: PO, Drug form: TAB, Q6H, PRN Pain, Start date: 10/09/11 12:08:00, Duration: 30 day, Stop date: 11/08/11 12:07:00 [facility] Saline Flush 0.9% 2011-10-09 14:00:00 No Kaisen Fang 5 ml, Route: IVP, Drug Form: INJ, Q12H, Start date: 10/09/11 9:00:00, Duration: 30 day, Stop date: 11/07/11 21:00:00 [facility] Benadryl 2011-10-09 10:50:00 No Kaisen Fang 50 mg, Route: IVP, ONCE, benadryl 50mg ivp x1 dose now, Start date: 10/09/11 5:50:00, Stop date: 10/09/11 5:50:00 [facility] Benadryl 2011-10-09 10:46:00 No Kaisen Fang 50 mg, 1 mL, Route: IVP, Drug form: INJ, ONCE, PRN Itching, Start date: 10/09/11 5:46:00 [facility] trazodone 50 mg oral tablet 2011-10-09 09:57:12 Yes David en Fang 50 mg, 1 tab, PO, PRN, as needed for insomnia if ambien does not work, Substitution Allowed, TAB [facility] Ambien CR 12.5 mg oral tablet, extended release 2011-10-09 09:56:22 Yes Kaisen Fang 25 mg, 2 tab, PO , Bedtime, PRN, for sleep, Substitution Allowed, ERTAB [facility] nitroglycerin 0.4 mg sublingual tablet 2011-10-09 09:49:00 No Kaisen Fang 0.4 mg, 1 tab, Route: Dr WILL ug form: TAB, Q5Min, PRN Chest Pain, Start date: 10/09/11 4:49:00, Duration: 30 day, Stop date: 11/08/11 4:48:00 [facility] atropine 2011-10-09 09:48:00 No Kaisen Fang 0.5 mg, 5 mL, Route: IVP, Drug form: INJ, PRN, PRN Bradycardia, Start date: 10/09/11 4:48:00, Duration: 30 day, Stop date: 11/08/11 4:47:00 Herbert Lockett Saline Flush 0.9% 2011-10-09 09:44:00 No John Fang 5 ml, Route: IVP, Drug Form: [...] date: 10/09/11 3:33:00, Stop date: 10/09/11 3:33:00 Gurpreet Dunn 1/2NS 1,000 mL 2011-10-09 07:53:00 No Antonio pradhan 1,000 mL, Rate: 125 ml/hr, Infuse over: 8 hr, Route: IV, Dosing Weight 62.727 kg, Total Volume: 1,000, Start date: 10/09/11 2:53:00, Duration: 30 day, Stop date: 11/08/11 2:52:00 [facility] influenza virus vaccine, inactivated 2011-03-31 15:00:00 No SYSTEM SYSTEM 0.5 ml, Route: IM, Drug Form : INJ, Start date: 03/31/11 9:00:00, Stop date: 03/31/11 9:00:00 [facility] Acetaminophen With Codeine (Tylenol With Codeine #4 Ta blet) 1 Each TABLET Acetaminophen With Codeine (Tylenol With Codeine #4 Tablet) 1 Each TABLET Yes 1 Every 6 Hours [facility] Citalopram Hydrobromide (Celexa) 40 Mg TABLET Citalopr am Hydrobromide (Celexa) 40 Mg TABLET Yes 40 Daily [facility] Diazepam Diazepam Yes 10 Every 8 Hours [facility] Dicyclomine Hcl (Bentyl) 10 Mg CAPSULE Dicyclomine Hcl (Bentyl) 10 Mg CAPSULE Yes 15 Three Times A Day [facility] Diphenoxylate Hcl/Atropine (Lomotil Tablet) 1 Each TAB LET Diphenoxylate Hcl/Atropine (Lomotil Tablet) 1 Each TABLET Yes 1 Every 6 Hours as needed for Diarrhea [facility] Gabapentin Gabapentin Yes 800 Three Times A Day [facility] Hydromorphone Hcl (Dilaudid) 2 Mg TAB Hydromorphone Hcl (Dilaudid) 2 Mg TAB Yes 25 [facility] Mertazapine Mertazapine Yes 15 Bedtime [facility] Promethazine Hcl Promethazine Hcl Yes 50 Every 6 Hours [facility] Temazepam Temazepam Yes 15 Bedtime [facility] Tizanidine Hcl Tizanidine Hcl Yes 4 Three Time s A Day [facility] Zolpidem Tartrate (Ambien) 10 Mg TABLET Zolpidem Tartrate (A mbien) 10 Mg TABLET Yes 10 Bedtime [facility] Albuterol Sulfate (Proair Hfa Inhaler*) 8.5 Gm INH Alb uterol Sulfate (Proair Hfa Inhaler*) 8.5 Gm INH 2017-07-09 00:00:00 No 2 Da osiris [facility] Chlordiazepoxide/Clidinium Br (Chlordiazepoxide-Clidin ium Cap) 1 Each CAPSULE Chlordiazepoxide/Clidinium Br (Chlordiazepoxide-Clidinium Cap) 1 Each CAPSULE 2017-07-09 00:00:00 No 1 Daily [facility] Chlordiazepoxide/Clidinium Br (Librax Capsule) 1 Each CAPSULE Chlordiazepoxide/Clidinium Br (Librax Capsule) 1 Each CAPSULE 2017-07-09 00:00:00 No 20 Bedtime [facility] Fentanyl Fentanyl 2017-07-09 00:00:00 No 50 Q72 Hrs [facility] Folic Acid Folic Acid 2017-07-09 00:00:00 No 3 Trini ly [facility] Mesalamine (Pentasa) 500 Mg CAPCR Mesalamine (Pentasa) 500 Mg CA PCR 2017-07-09 00:00:00 No 1000 Three Times A Day [facility] Mirtazapine Mirtazapine 2017-07-09 00:00:00 No 15 B edtime [facility] Ondansetron (Zofran Odt) 4 Mg TAB.RAPDIS Ondansetron ( Zofran Odt) 4 Mg TAB.RAPDIS 2017-07-09 00:00:00 No 8 E very 6 Hours as needed for Nausea And Vomiting [facility] Pro Plus Pro Plus 2017-07-09 00:00:00 No 1 Daily [facility] Rifaximin (Xifaxan) 550 Mg TABLET Rifaximin (Xifaxan) 550 Mg TAB LET 2017-07-09 00:00:00 No 1 Twice A Day [facility] Oseltamivir Phosphate (Tamiflu) 75 Mg CAP Oseltamivir Phosphate (Tamiflu) 75 Mg CAP 2016-09-03 00:00:00 No 75 Twice A Day [facility] Diphenoxylate Hcl/Atropine (Lomotil Tablet) 1 Each TAB LET Diphenoxylate Hcl/Atropine (Lomotil Tablet) 1 Each TABLET 2016-08-10 00:00:00 No 1 Daily [facility] Pantoprazole Sodium (Protonix) 40 Mg TABLET. Pantopr azole Sodium (Protonix) 40 Mg TABLET. 2016-08-10 00:00:00 No 40 Daily [facility] Propranolol Hcl Propranolol Hcl 2016-08-10 00:00:00 No 120 Daily [facility] Cephalexin Monohydrate (Keflex) 500 Mg CAPSULE Cephale misael Monohydrate (Keflex) 500 Mg CAPSULE 2016-03-15 00:00:00 No 500 Four Time s Daily [facility] Clarithromycin (Biaxin) 500 Mg TABLET Clarithromycin (Biaxin) 50 0 Mg TABLET 2016-03-09 00:00:00 No 500 Twice A Day [facility] Metronidazole Metronidazole 2016-03-09 00:00:00 No 500 Three Times A Day [facility] Temazepam (Restoril) 30 Mg CAPSULE Temazepam (Restoril) 30 Mg CA PSULE 2016-03-09 00:00:00 No 40 Bedtime [facility] Acetaminophen With Codeine (Tylenol With Codeine #3 Ta blet) 1 Each TABLET Acetaminophen With Codeine (Tylenol With Codeine #3 Tablet) 1 Each TABLET 2015-12-01 00:00:00 No 300 Every 4 Hours for Pa in [facility] Cyclobenzaprine Hcl (Flexeril) 5 Mg TABLET Cyclobenzap rine Hcl (Flexeril) 5 Mg TABLET 2015-12-01 00:00:00 No 10 [facility] Ibuprofen (Motrin) 200 Mg TAB Ibuprofen (Motrin) 200 Mg TAB 2015-12-01 00:00:00 No 400 Every 6 Hours C [facility] Vital Signs Vital Name Observation Time Observation Value Comments Source Body Temperature 2019-10-15 07:45:00 98.6 [degF] [facility] BMI (Body Mass Index) 2019-10-15 00:51:00 33.5 kg/m2 [facility] Weight 2019-10-12 01:29:00 214 [lb_av] [facility] Respitory Rate 2016-08-05 10:45:00 Gurpreetori al Shaun Systolic (mm Hg) 2016-08-05 10:45:00 Jorje fan Dunn Diastolic (mm Hg) 2016-08-05 10:45:00 Mem o[facility] Heart Rate 2016-08-05 10:45:00 [facility] Temperature Oral (F) 2016-08-05 10:45:00 96.8 F [facility] Height 2016-08-05 07:44:00 170.18 cm [facility] Weight 2016-08-05 07:44:00 [facility] BMI Calculated 2016-08-05 07:44:00 [facility] Shaun Temperature Oral (F) 2016-08-05 07:44:00 97.5 F [facility] [place] Systolic (mm Hg) 2016-08-05 07:44:00 Jorje rial [place] Diastolic (mm Hg) 2016-08-05 07:44:00 Mem orial Shaun Heart Rate 2016-08-05 07:44:00 [facility] Respitory Rate 2016-08-05 07:44:00 Memori al Shaun Respitory Rate 2016-07-13 18:25:00 [facility] [place] Heart Rate 2016-07-13 18:25:00 [facility] [place] Systolic (mm Hg) 2016-07-13 18:25:00 Jorje rial Shaun Diastolic (mm Hg) 2016-07-13 18:25:00 [facility] [place] Temperature Oral (F) 2016-07-13 18:25:00 97.8 F [facility] [place] Heart Rate 2016-07-13 15:39:00 [facility] [place] Systolic (mm Hg) 2016-07-13 15:39:00 Jorje rial Shaun Diastolic (mm Hg) 2016-07-13 15:39:00 Mem orial [place] Respitory Rate 2016-07-13 15:39:00 Memori al Shaun Systolic (mm Hg) 2016-07-13 13:05:00 Jorje rial [place] Diastolic (mm Hg) 2016-07-13 13:05:00 Mem orial Shaun Respitory Rate 2016-07-13 13:05:00 [facility] [place] Heart Rate 2016-07-13 13:05:00 [facility] [place] Temperature Oral (F) 2016-07-13 10:07:00 98 F [facility] Height 2016-07-13 09:46:00 167.64 cm [facility] [place] BMI Calculated 2016-07-13 09:46:00 Memori al Shaun Weight 2016-07-13 09:46:00 [facility] [place] Temperature Oral (F) 2016-07-13 09:46:00 98.3 F [facility] Respitory Rate 2016-05-10 18:00:00 [facility] [place] Temperature Oral (F) 2016-05-10 18:00:00 98.5 F [facility] Heart Rate 2016-05-10 18:00:00 [facility] Systolic (mm Hg) 2016-05-10 18:00:00 Jorje rial [place] Diastolic (mm Hg) 2016-05-10 18:00:00 Mem orial Shaun Respitory Rate 2016-05-10 15:03:00 [facility] [place] Heart Rate 2016-05-10 14:00:00 [facility] [place] Systolic (mm Hg) 2016-05-10 14:00:00 Jorje rial Shaun Diastolic (mm Hg) 2016-05-10 14:00:00 Mem [facility] [place] Respitory Rate 2016-05-10 14:00:00 Memori al Shaun Temperature Oral (F) 2016-05-10 14:00:00 98.3 F [facility] Systolic (mm Hg) 2016-05-10 10:00:00 Jorje rial [place] Diastolic (mm Hg) 2016-05-10 10:00:00 Mem orial Shaun Heart Rate 2016-05-10 10:00:00 [facility] [place] Temperature Oral (F) 2016-05-10 10:00:00 98.4 F [facility] [place] Weight 2016-05-05 21:42:00 [facility] [place] BMI Calculated 2016-05-05 21:42:00 Memori al Shaun Height 2016-05-05 21:42:00 167.64 cm [facility] [place] Height 2016-04-30 12:50:00 167.64 cm [facility] BMI Calculated 2016-04-30 12:50:00 [facility] [place] Weight 2016-04-30 12:50:00 [facility] [place] Height 2016-04-29 21:31:00 167.64 cm [facility] [place] BMI Calculated 2016-04-29 21:31:00 Memori al Shaun Weight 2016-04-29 21:31:00 [facility] [place] Systolic (mm Hg) 2016-04-12 22:23:00 Jorje rial Shaun Diastolic (mm Hg) 2016-04-12 22:23:00 Mem o[facility] [place] Respitory Rate 2016-04-12 22:23:00 [facility] [place] Temperature Oral (F) 2016-04-12 22:23:00 98.0 F [facility] [place] Heart Rate 2016-04-12 22:23:00 [facility] Weight 2016-04-12 19:10:00 [facility] Height 2016-04-12 19:10:00 167.64 cm [facility] BMI Calculated 2016-04-12 19:10:00 [facility] [place] Respitory Rate 2016-04-12 19:09:00 Memori al Shaun Systolic (mm Hg) 2016-04-12 19:09:00 Jorje rial [place] Diastolic (mm Hg) 2016-04-12 19:09:00 Mem [facility] [place] Respitory Rate 2016-04-12 18:23:00 Memori al Shaun Temperature Oral (F) 2016-04-12 18:23:00 98.0 F [facility] Heart Rate 2016-04-12 18:23:00 [facility] [place] Systolic (mm Hg) 2016-04-12 18:23:00 Jorje rial [place] Diastolic (mm Hg) 2016-04-12 18:23:00 Mem orial Shaun Heart Rate 2016-04-12 12:29:00 [facility] [place] Temperature Oral (F) 2016-04-12 03:21:00 98.4 F [facility] BMI Calculated 2016-04-12 00:20:00 Memori al Shaun Weight 2016-04-12 00:20:00 [facility] [place] Height 2016-04-12 00:20:00 167.64 cm [facility] [place] Respitory Rate 2016-04-06 09:26:00 Memori al Shaun Systolic (mm Hg) 2016-04-06 09:26:00 Jorje rial [place] Diastolic (mm Hg) 2016-04-06 09:26:00 Mem o[facility] [place] Heart Rate 2016-04-06 09:26:00 [facility] [place] Temperature Oral (F) 2016-04-06 09:26:00 97.8 F [facility] [place] Heart Rate 2016-04-06 04:06:00 [facility] [place] Systolic (mm Hg) 2016-04-06 04:06:00 Jorje rial [place] Respitory Rate 2016-04-06 04:06:00 [facility] [place] Diastolic (mm Hg) 2016-04-06 04:06:00 [facility] [place] Temperature Oral (F) 2016-04-06 04:06:00 97.7 F [facility] Weight 2016-04-06 00:07:00 [facility] Respitory Rate 2016-04-06 00:07:00 [facility] [place] Temperature Oral (F) 2016-04-06 00:07:00 97.8 F [facility] Height 2016-04-06 00:07:00 165.1 cm [facility] [place] BMI Calculated 2016-04-06 00:07:00 Memori al Shaun Heart Rate 2016-04-06 00:07:00 [facility] [place] Systolic (mm Hg) 2016-04-06 00:07:00 Jorje rial [place] Diastolic (mm Hg) 2016-04-06 00:07:00 Mem orial Shaun Systolic (mm Hg) 2016-03-03 04:00:00 Jorje rial [place] Diastolic (mm Hg) 2016-03-03 04:00:00 [facility] [place] Respitory Rate 2016-03-03 04:00:00 [facility] [place] Temperature Oral (F) 2016-03-03 04:00:00 98.2 F [facility] Heart Rate 2016-03-03 04:00:00 [facility] Temperature Oral (F) 2016-03-03 01:26:00 98.0 F [facility] [place] Respitory Rate 2016-03-03 01:26:00 Memori al Shaun Systolic (mm Hg) 2016-03-03 01:26:00 Jorje rial Shaun Diastolic (mm Hg) 2016-03-03 01:26:00 [facility] [place] Heart Rate 2016-03-03 01:26:00 [facility] Height 2016-03-03 00:23:00 167.64 cm [facility] BMI Calculated 2016-03-03 00:23:00 Memori al Shaun Weight 2016-03-03 00:23:00 [facility] Temperature Oral (F) 2016-03-03 00:23:00 98.0 F [facility] Heart Rate 2016-03-03 00:23:00 [facility] [place] Respitory Rate 2016-03-03 00:23:00 [facility] [place] Systolic (mm Hg) 2016-03-03 00:23:00 Jorje rial [place] Diastolic (mm Hg) 2016-03-03 00:23:00 Mem [facility] [place] Systolic (mm Hg) 2015-03-21 04:19:00 Jorje rial Shaun Diastolic (mm Hg) 2015-03-21 04:19:00 Mem orial [facility] Respitory Rate 2015-03-21 04:19:00 Mem[facility] [place] Heart Rate 2015-03-21 04:19:00 [facility] Temperature Oral (F) 2015-03-21 04:19:00 98.0 F [facility] Weight 2015-03-21 01:18:00 [facility] BMI Calculated 2015-03-21 01:18:00 [facility] [place] Respitory Rate 2015-03-21 01:18:00 [facility] [place] Heart Rate 2015-03-21 01:18:00 [facility] [place] Systolic (mm Hg) 2015-03-21 01:18:00 Jorje rial [place] Diastolic (mm Hg) 2015-03-21 01:18:00 Mem orial Shaun Temperature Oral (F) 2015-03-21 01:18:00 98.3 F [facility] [place] Height 2015-03-21 01:18:00 167.64 cm [facility] [place] Systolic (mm Hg) 2014-09-30 04:32:00 Jorje rial Shaun Diastolic (mm Hg) 2014-09-30 04:32:00 Mem o[facility] Temperature Oral (F) 2014-09-30 04:32:00 98 F [facility] Respitory Rate 2014-09-30 04:32:00 [facility] [place] Heart Rate 2014-09-30 04:32:00 [facility] [place] Heart Rate 2014-09-30 00:10:00 [facility] Systolic (mm Hg) 2014-09-30 00:10:00 Jorje rial [place] Diastolic (mm Hg) 2014-09-30 00:10:00 [facility] [place] Temperature Oral (F) 2014-09-30 00:10:00 97.9 F [facility] [place] Respitory Rate 2014-09-30 00:10:00 Mem[facility] [place] Respitory Rate 2014-09-29 21:14:00 [facility] [place] Systolic (mm Hg) 2014-09-29 21:14:00 Jorje rial Shaun Diastolic (mm Hg) 2014-09-29 21:14:00 [facility] [place] Heart Rate 2014-09-29 21:14:00 [facility] Temperature Oral (F) 2014-09-29 21:14:00 97.5 F [facility] BMI Calculated 2014-09-14 08:04:00 [facility] [place] Weight 2014-09-14 08:04:00 [facility] Height 2014-09-14 08:04:00 167.64 cm [facility] BMI Calculated 2014-09-14 02:59:00 [facility] [place] Weight 2014-09-14 02:59:00 [facility] Height 2014-09-14 02:59:00 170.18 cm [facility] Respitory Rate 2014-02-09 16:16:00 [facility] [place] Heart Rate 2014-02-09 16:16:00 [facility] [place] Systolic (mm Hg) 2014-02-09 16:16:00 Jorje rial [place] Diastolic (mm Hg) 2014-02-09 16:16:00 [facility] [place] Temperature Oral (F) 2014-02-09 16:16:00 97.6 F [facility] BMI Calculated 2014-02-09 14:50:00 [facility] [place] Height 2014-02-09 14:50:00 167.64 cm [facility] [place] Weight 2014-02-09 14:50:00 [facility] Diastolic (mm Hg) 2014-02-09 14:50:00 [facility] [place] Respitory Rate 2014-02-09 14:50:00 [facility] [place] Heart Rate 2014-02-09 14:50:00 [facility] Temperature Oral (F) 2014-02-09 14:50:00 97.7 F [facility] Systolic (mm Hg) 2014-02-09 14:50:00 Jorje rial [facility] Weight 2014-02-09 14:49:00 [facility] BMI Calculated 2014-02-09 14:49:00 [facility] [place] Height 2014-02-09 14:49:00 167.64 cm [facility] Diastolic (mm Hg) 2013 17:00:00 Mem o[facility] Systolic (mm Hg) 2013 17:00:00 Jorje rial [facility] Heart Rate 2013 17:00:00 [facility] [place] Respitory Rate 2013 17:00:00 Memori al [facility] Temperature Oral (F) 2013 17:00:00 98.2 F [facility] [place] Diastolic (mm Hg) 2013 13:00:00 Mem o[facility] Systolic (mm Hg) 2013 13:00:00 Jorje rial [place] Respitory Rate 2013 13:00:00 [facility] [place] Temperature Oral (F) 2013 13:00:00 98.0 F [facility] Heart Rate 2013 13:00:00 [facility] Diastolic (mm Hg) 2013 10:51:00 [facility] [place] Systolic (mm Hg) 2013 10:51:00 Jorje rial [place] Heart Rate 2013 10:51:00 [facility] Temperature Oral (F) 2013 10:51:00 97.4 F [facility] [place] Respitory Rate 2013 05:00:00 Mem[facility] Height 2013-12-10 18:46:00 170.18 cm [facility] [place] BMI Calculated 2013-12-10 18:46:00 [facility] [place] Weight 2013-12-10 18:46:00 [facility] Height 2013-12-07 01:22:00 170.18 cm [facility] BMI Calculated 2013-12-07 01:22:00 [facility] [place] Weight 2013-12-07 01:22:00 [facility] Systolic (mm Hg) 2013-12-07 01:22:00 Jorje rial [place] Temperature Oral (F) 2013-12-07 01:22:00 98.4 F [facility] [place] Respitory Rate 2013-12-07 01:22:00 [facility] [place] Heart Rate 2013-12-07 01:22:00 [facility] [place] Diastolic (mm Hg) 2013-12-07 01:22:00 [facility] Temperature Oral (F) 2013-09-24 13:03:00 98.3 F [facility] Systolic (mm Hg) 2013-09-24 13:03:00 [facility] [place] Diastolic (mm Hg) 2013-09-24 13:03:00 [facility] Heart Rate 2013-09-24 13:03:00 [facility] Respitory Rate 2013-09-24 13:03:00 [facility] Heart Rate 2013-09-24 09:45:00 [facility] [place] Temperature Oral (F) 2013-09-24 09:45:00 98.1 F [facility] Respitory Rate 2013-09-24 09:45:00 [facility] [place] Systolic (mm Hg) 2013-09-24 09:45:00 [facility] Diastolic (mm Hg) 2013-09-24 09:45:00 [facility] [place] Temperature Oral (F) 2013-09-24 05:35:00 98.2 F [facility] Systolic (mm Hg) 2013-09-24 05:35:00 [facility] [place] Respitory Rate 2013-09-24 05:35:00 [facility] [place] Heart Rate 2013-09-24 05:35:00 [facility] [place] Diastolic (mm Hg) 2013-09-24 05:35:00 [facility] [place] BMI Calculated 2013-09-18 22:44:00 [facility] Height 2013-09-18 22:44:00 167.64 cm [facility] [place] Weight 2013-09-18 22:44:00 [facility] [place] Temperature Oral (F) 2013-09-13 08:26:00 98.1 F [facility] Systolic (mm Hg) 2013-09-13 08:26:00 [facility] Diastolic (mm Hg) 2013-09-13 08:26:00 [facility] [place] Diastolic (mm Hg) 2013-09-13 05:49:00 [facility] [place] Systolic (mm Hg) 2013-09-13 05:49:00 [facility] [place] Temperature Oral (F) 2013-09-13 05:49:00 98.1 F [facility] Systolic (mm Hg) 2013-09-13 04:10:00 [facility] [place] Diastolic (mm Hg) 2013-09-13 04:10:00 [facility] BMI Calculated 2013-09-12 22:26:00 [facility] Height 2013-09-12 22:26:00 167.64 cm [facility] Weight 2013-09-12 22:26:00 [facility] Respitory Rate 2013-09-12 22:26:00 [facility] Temperature Oral (F) 2013-09-12 22:26:00 98.2 F [facility] [place] Heart Rate 2013-09-12 22:26:00 [facility] [place] Temperature Oral (F) 2013-09-10 12:00:00 97.9 F [facility] Heart Rate 2013-09-10 12:00:00 [facility] [place] Respitory Rate 2013-09-10 12:00:00 [facility] Diastolic (mm Hg) 2013-09-10 12:00:00 [facility] Systolic (mm Hg) 2013-09-10 12:00:00 Jojre [facility] Temperature Oral (F) 2013-09-10 09:12:00 97.9 F [facility] [place] Heart Rate 2013-09-10 09:12:00 [facility] Respitory Rate 2013-09-10 09:12:00 [facility] [place] Systolic (mm Hg) 2013-09-10 09:12:00 [facility] [place] Diastolic (mm Hg) 2013-09-10 09:12:00 [facility] Systolic (mm Hg) 2013-09-10 05:25:00 [facility] [place] Diastolic (mm Hg) 2013-09-10 05:25:00 [facility] [place] Heart Rate 2013-09-10 05:25:00 [facility] Temperature Oral (F) 2013-09-10 05:25:00 98.2 F [facility] [place] Respitory Rate 2013-09-10 05:25:00 [facility] Weight 2013-09-02 01:49:00 [facility] BMI Calculated 2013-09-02 01:49:00 [facility] Height 2013-09-02 01:49:00 167.64 cm [facility] [place] Temperature Oral (F) 2013-09-01 12:06:00 97.1 F [facility] [place] Diastolic (mm Hg) 2013-09-01 10:00:00 [facility] Systolic (mm Hg) 2013-09-01 10:00:00 [facility] Respitory Rate 2013-09-01 10:00:00 [facility] [place] Heart Rate 2013-09-01 10:00:00 [facility] [place] Temperature Oral (F) 2013-09-01 10:00:00 97.2 F [facility] Respitory Rate 2013-09-01 08:00:00 [facility] [place] Systolic (mm Hg) 2013-09-01 08:00:00 [facility] [place] Diastolic (mm Hg) 2013-09-01 08:00:00 [facility] [place] Heart Rate 2013-09-01 08:00:00 [facility] Systolic (mm Hg) 2013-09-01 06:00:00 [facility] [place] Diastolic (mm Hg) 2013-09-01 06:00:00 [facility] Respitory Rate 2013-09-01 06:00:00 [facility] [place] Heart Rate 2013-09-01 06:00:00 [facility] [place] Temperature Oral (F) 2013-09-01 04:30:00 97.6 F [facility] [place] Weight 2013-09-01 04:30:00 [facility] Systolic (mm Hg) 2013-06-10 14:00:00 [facility] Diastolic (mm Hg) 2013-06-10 14:00:00 [facility] [place] Temperature Oral (F) 2013-06-10 14:00:00 98.4 F [facility] [place] Respitory Rate 2013-06-10 14:00:00 [facility] Heart Rate 2013-06-10 14:00:00 [facility] Respitory Rate 2013-06-10 12:51:00 [facility] [place] Diastolic (mm Hg) 2013-06-10 10:09:00 [facility] Temperature Oral (F) 2013-06-10 10:09:00 98.0 F [facility] [place] Systolic (mm Hg) 2013-06-10 10:09:00 [facility] [place] Heart Rate 2013-06-10 10:09:00 [facility] [place] Respitory Rate 2013-06-10 10:09:00 [facility] [place] Heart Rate 2013-06-10 06:32:00 [facility] Temperature Oral (F) 2013-06-10 06:32:00 98.0 F [facility] [place] Systolic (mm Hg) 2013-06-10 06:32:00 [facility] Diastolic (mm Hg) 2013-06-10 06:32:00 [facility] [place] Weight 2013-06-05 20:50:00 [facility] [place] Height 2013-06-05 20:50:00 170.18 cm [facility] [place] Respitory Rate 2013-02-12 05:17:00 [facility] [place] Systolic (mm Hg) 2013-02-12 05:17:00 [facility] Diastolic (mm Hg) 2013-02-12 05:17:00 [facility] [place] Heart Rate 2013-02-12 05:17:00 [facility] Respitory Rate 2013-02-12 04:45:00 [facility] Systolic (mm Hg) 2013-02-12 04:45:00 [facility] [place] Diastolic (mm Hg) 2013-02-12 04:45:00 [facility] [place] Heart Rate 2013-02-12 04:45:00 [facility] Systolic (mm Hg) 2013-02-12 02:10:00 [facility] Diastolic (mm Hg) 2013-02-12 02:10:00 [facility] Heart Rate 2013-02-12 02:10:00 [facility] [place] Respitory Rate 2013-02-12 02:10:00 [facility] [place] Weight 2013-02-12 01:51:00 [facility] Height 2013-02-12 01:51:00 170.18 cm [facility] Temperature Oral (F) 2013-02-12 01:51:00 98.8 F [facility] Weight 2012-10-19 10:16:00 [facility] Height 2012-10-19 10:16:00 170.18 cm [facility] Weight 2012-09-28 00:56:00 [facility] [place] Height 2012-09-28 00:56:00 170.18 cm [facility] [place] Temperature Oral (F) 2012-08-11 17:15:00 97.9 F [facility] Heart Rate 2012-08-11 17:15:00 [facility] [place] Diastolic (mm Hg) 2012-08-11 17:15:00 [facility] [place] Respitory Rate 2012-08-11 17:15:00 [facility] [place] Systolic (mm Hg) 2012-08-11 17:15:00 [facility] Heart Rate 2012-08-11 15:36:00 [facility] [place] Diastolic (mm Hg) 2012-08-11 15:36:00 [facility] Systolic (mm Hg) 2012-08-11 15:36:00 [facility] [place] Respitory Rate 2012-08-11 15:26:00 [facility] [place] Temperature Oral (F) 2012-08-11 12:36:00 97.9 F [facility] Diastolic (mm Hg) 2012-08-11 12:36:00 [facility] Heart Rate 2012-08-11 12:36:00 [facility] Respitory Rate 2012-08-11 12:36:00 [facility] Systolic (mm Hg) 2012-08-11 12:36:00 [facility] Temperature Oral (F) 2012-08-11 09:05:00 97.6 F [facility] [place] Weight 2012-08-06 21:08:00 [facility] [place] Height 2012-08-06 21:08:00 167.64 cm [facility] [place] Height 2012-08-06 20:32:00 167.64 cm [facility] [place] Weight 2012-08-06 20:32:00 [facility] Diastolic (mm Hg) 2012-07-19 22:00:00 [facility] [place] Heart Rate 2012-07-19 22:00:00 [facility] [place] Systolic (mm Hg) 2012-07-19 22:00:00 [facility] Respitory Rate 2012-07-19 22:00:00 [facility] [place] Temperature Oral (F) 2012-07-19 22:00:00 97.4 F [facility] [place] Diastolic (mm Hg) 2012-07-19 18:00:00 [facility] [place] Systolic (mm Hg) 2012-07-19 18:00:00 [facility] Respitory Rate 2012-07-19 18:00:00 [facility] Heart Rate 2012-07-19 18:00:00 [facility] Temperature Oral (F) 2012-07-19 18:00:00 97.8 F [facility] [place] Systolic (mm Hg) 2012-07-19 14:00:00 [facility] Respitory Rate 2012-07-19 14:00:00 [facility] Temperature Oral (F) 2012-07-19 14:00:00 97.5 F [facility] Diastolic (mm Hg) 2012-07-19 14:00:00 [facility] Heart Rate 2012-07-19 14:00:00 [facility] Height 2012-07-18 05:05:00 167.64 cm [facility] [place] Weight 2012-07-18 05:05:00 [facility] Weight 2012-07-18 05:01:00 [facility] Height 2012-07-18 05:01:00 167.64 cm [facility] Height 2012-07-17 20:14:00 170.18 cm [facility] [place] Weight 2012-07-17 20:14:00 [facility] [place] Weight 2012-07-16 02:49:00 [facility] [place] Height 2012-07-16 02:49:00 170.18 cm [facility] [place] Diastolic (mm Hg) 2012-07-11 21:37:00 [facility] [place] Systolic (mm Hg) 2012-07-11 21:37:00 [facility] Respitory Rate 2012-07-11 21:37:00 [facility] [place] Heart Rate 2012-07-11 21:37:00 [facility] [place] Temperature Oral (F) 2012-07-11 21:37:00 97.7 F [facility] Diastolic (mm Hg) 2012-07-11 13:32:00 [facility] [place] Temperature Oral (F) 2012-07-11 13:32:00 97.9 F [facility] [place] Respitory Rate 2012-07-11 13:32:00 [facility] Systolic (mm Hg) 2012-07-11 13:32:00 [facility] Heart Rate 2012-07-11 13:32:00 [facility] [place] Diastolic (mm Hg) 2012-07-11 10:25:00 [facility] Temperature Oral (F) 2012-07-11 10:25:00 97.7 F [facility] Respitory Rate 2012-07-11 10:25:00 [facility] Systolic (mm Hg) 2012-07-11 10:25:00 [facility] Heart Rate 2012-07-11 10:25:00 [facility] Height 2012-07-09 17:58:00 170.18 cm [facility] Weight 2012-07-09 17:58:00 [facility] [place] Weight 2012-07-08 07:25:00 [facility] [place] Height 2012-07-07 05:32:00 170.18 cm [facility] Weight 2012-07-07 05:32:00 [facility] Height 2012-05-31 13:41:00 170.18 cm [facility] Weight 2012-05-31 13:41:00 [facility] Weight 2012-04-08 20:14:00 [facility] [place] Height 2012-04-08 20:14:00 167.64 cm [facility] Height 2012-02-16 20:44:00 170.18 cm [facility] Weight 2012-02-16 20:44:00 [facility] [place] Height 2012-01-25 02:28:00 167.64 cm [facility] Weight 2012-01-25 02:28:00 [facility] Systolic (mm Hg) 2012-01-02 15:02:00 [facility] Heart Rate 2012-01-02 15:02:00 [facility] [place] Diastolic (mm Hg) 2012-01-02 15:02:00 [facility] [place] Respitory Rate 2012-01-02 14:15:00 [facility] Systolic (mm Hg) 2012-01-02 14:15:00 [facility] [place] Diastolic (mm Hg) 2012-01-02 14:15:00 [facility] Respitory Rate 2012-01-02 14:00:00 [facility] [place] Diastolic (mm Hg) 2012-01-02 14:00:00 [facility] [place] Systolic (mm Hg) 2012-01-02 14:00:00 [facility] [place] Respitory Rate 2012-01-02 13:45:00 [facility] [place] Heart Rate 2012-01-02 13:00:00 [facility] Temperature Oral (F) 2012-01-02 13:00:00 97.5 F [facility] [place] Heart Rate 2012-01-02 09:00:00 [facility] Temperature Oral (F) 2012-01-02 09:00:00 95.5 F [facility] Temperature Oral (F) 2012-01-02 05:00:00 95.4 F [facility] Height 2011-12-31 22:20:00 170.18 cm [facility] [place] Weight 2011-12-31 22:20:00 [facility] Weight 2011-12-31 03:33:00 [facility] Weight 2011-10-16 06:11:00 [facility] [place] Height 2011-10-16 06:11:00 167.64 cm [facility] [place] Systolic (mm Hg) 2011-10-10 17:00:00 [facility] [place] Diastolic (mm Hg) 2011-10-10 17:00:00 [facility] [place] Temperature Oral (F) 2011-10-10 17:00:00 98.3 F [facility] [place] Heart Rate 2011-10-10 17:00:00 [facility] Respitory Rate 2011-10-10 17:00:00 [facility] [place] Respitory Rate 2011-10-10 09:00:00 [facility] Systolic (mm Hg) 2011-10-10 09:00:00 [facility] [place] Temperature Oral (F) 2011-10-10 09:00:00 97.6 F [facility] Heart Rate 2011-10-10 09:00:00 [facility] Diastolic (mm Hg) 2011-10-10 09:00:00 [facility] [place] Heart Rate 2011-10-10 05:00:00 [facility] [place] Respitory Rate 2011-10-10 05:00:00 [facility] Temperature Oral (F) 2011-10-10 05:00:00 98.4 F [facility] [place] Systolic (mm Hg) 2011-10-10 05:00:00 [facility] Diastolic (mm Hg) 2011-10-10 05:00:00 [facility] Height 2011-10-09 03:25:00 170.18 cm [facility] Weight 2011-10-09 03:25:00 [facility] [place] Procedures Procedure Date / Time Performed Performing Clinician [facility] Computed tomography of brain without radiopaque contrast 2019-09 00:00:00 [facility] CT of abdomen and pelvis without contrast 2019-10-09 00:00:00 [facility] X-ray of chest, two views 2019-05-19 00:00:00 GERARDO SARGENT [facility] Computed tomography of chest with contrast 2019-05-19 00:00:00 BRENNAN WILLIAMSON [facility] Biopsy of liver 2011-05-15 00:00:00 [facility] escalona Gastric bypass operation [facility] [place] Abdominal hysterectomy [facility] Hernia repair [facility] Back fusion [facility] [place] Internal and external hemorrhoidectomy and anal fissurectomy [facility] Cholecystectomy [facility] Foot joint operations [facility] H ermann Tonsil operation [facility] Edwin n Abdominal hysterectomy [facility] [place] Back fusion [facility] [place] Cholecystectomy [facility] [place] Gastric bypass operation [facility] Hernia repair [facility] Internal and external hemorrhoidectomy and anal fissurectomy [facility] [place] Hysterectomy [facility] [place] Plan of Care Planned Activity Planned Date Details Comments Source Future Scheduled Test 2019-12-14 00:00:00 INFLUENZA VACCINE [code = INFLUENZA VACCINE] Juan Carlos Woodall Future Scheduled Test 1996-12-16 00:00:00 Screening for danielle gnant neoplasm of cervix (procedure) [code = 009954641] Rangel Methodis t Instructions Diarrhea - Adult [facility] Encounters Start Date/Time End Date/Time Encounter Type Admission Type Attendi [facility] Care Department Encounter ID Source 2019-10-09 12:04:00 2019-10-15 10:51:00 Discharged Inpatient 1 DARCY CASTILLO [facility] [id number] [facility] 2019-07-25 16:32:00 2019-07-25 18:22:00 Departed Emergency Room 1 SIMA BAUTISTA [facility] [id number] [facility] 2019-05-19 11:57:00 2019-05-19 17:33:00 Departed Emergency Room 1 BRENNAN SOUSA [facility] [id number] [facility] 2018-09-18 16:58:00 2018-09-19 01:29:00 Departed Emergency Room 1 SHY CAMPOS [facility] [id number] [facility] 2017-07-11 23:20:00 2017-07-11 23:58:00 Departed Emergency Room [facility] [id number] [facility] 2017-07-09 18:43:00 2017-07-09 20:45:00 Departed Emergency Room [facility] [id number] [facility] 2016-08-05 02:41:00 2016-08-05 06:06:00 Outpatient Wei Liang [facility] [id number] 2016-07-13 03:45:00 2016-07-13 12:27:00 Outpatient Ezekiel Márquez [facility] [id number] 2016-04-29 15:29:00 2016-05-10 18:14:00 Outpatient Carlos Garza [facility] [id number] 2016-04-11 18:18:00 2016-04-12 17:16:00 Outpatient Tesfaye Verdin [facility] [id number] 2016-04-05 17:56:00 2016-04-06 03:33:00 Outpatient Yanet Smith [facility] [id number] 2016-03-02 19:21:00 2016-03-02 23:34:00 Outpatient Master Stallworth [facility] [id number] 2015-03-20 19:16:00 2015-03-20 22:46:00 Outpatient Yanet Smith [facility] [id number] 2014-09-13 21:58:00 2014-09-30 00:30:00 Outpatient Morgan Ochoa [facility] [id number] 2014-02-09 09:48:00 2014-02-09 11:25:00 Outpatient Prasad Killian [facility] [id number] 2013-12-12 07:07:00 2013 14:27:00 Outpatient Miky Enayet [facility] [id number] 2013-12-06 20:13:00 2013-12-07 02:31:00 Outpatient Antonio Riojas [facility] [id number] 2013-12-05 10:47:00 2013-12-05 23:59:00 Outpatient Slavam Enayet [facility] [id number] 2013-09-18 16:56:00 2013-09-24 11:35:00 Outpatient Rehan Bolañosayet [facility] [id number] 2013-09-12 17:16:00 2013-09-13 03:29:00 Outpatient Antonio Hope [facility] [id number] 2013-09-01 20:06:00 2013-09-10 09:55:00 Outpatient Slavam Enayet [facility] [id number] 2013-08-31 23:27:00 2013-09-01 07:09:00 Outpatient Antonio Riojas [facility] [id number] 2013-06-06 12:16:00 2013-06-10 12:50:00 Outpatient [facility]IE [facility] [id number] [facility] Results Test Description Test Time Test Comments Results Result Comments Source ABDOMEN ACUTE SERIES W/PA CXR 2019-10-17 22:51:00 [facility] [address] [address] Patient Name: LOGAN MCCRACKEN MR #: [id number] : 1975 Age/Sex: 43/F Req #: [id number] Adm Physician: Ordered by: MORGAN LOCKWOOD MD Report #: [id number] Location: ER Room/Bed: Procedure: [id number] DX/ABDOMEN ACUTE SERIES W/PA CXR Exam Date: 10/17/19 Exam Time: 2208 REPORT STATUS: Signed Acute Abdominal Series CPT CODE: 60537 INDICATION: Abdominal pain, nausea, vomiting, diarrhea. COMPARISON: Chest x-ray 10/09/2019, CT abdomen/pelvis 10/09/2019. FINDINGS: Single view of the chest shows no infiltrates or effusions. Vascular markings are normal. Supine and erect views of the abdomen show Medical Devices: Spinal stimulator battery pack in the right hemiabdomen. Cholecystectomy clips in the right upper quadrant. Fusion hardware in the lower lumbar spine. There are 2 cylindrical metallic densities each measuring 3.2 cm overlying the fusion hardware. One is located to the right of midline between the first and second pedicle screw counting down. The second is located inferior to the third most left pedicle screw. These were not present on the coal unloader image of the CT. Bowel: Unremarkable bowel gas pattern. No dilated bowel loops or air-fluid levels. Chain sutures in left upper quadrant correspond to small bowel on CT. No pneumatosis. Free air: None Abdominal calcifications: None over the renal shadows or along the expected course of the ureters. There are multiple pelvic phleboliths. Organomegaly: None Bones: Status post from L4 to S1. No focal osseous lesions. IMPRESSION: 1. Unremarkable bowel gas pattern. 2. Clear lungs. 3. 2 cylindrical metallic densities adjacent to the spinal fusion hardware may be external to the patient. More precise location can be confirmed with dedicated spine series if clinically indicated. Signed by: Dr. Veronica Britt MD on 10/17/2019 10:58 PM Dictated By: VERONICA BRITT MD 57 Transcribed By: ANUSHKA on 10/17/192257 COPY TO: MORGAN LOCKWOOD MD Blood leukocytes automated count (number/volume) 2019-10-13 06:20:00 Test Item White Blood Count (test code = 6690-2) 5.64 4.8-10.8 [facility] (number/volume)2019-10-13 06:20:00* Test Item Value Reference Range Interpretation Comments Red Blood Count (test code = 789-8) 3.27 3.6-5.1 [facility] (moles/volume)2019-10-13 06:20:00* Test Item Value Reference Range Interpretation Comments Hemoglobin (test code = 17724-9) 9.5 12.0-16.0 [facility] hematocrit (volume fraction)2019-10-13 06:20:00* Test Item Value Reference Range Interpretation Comments Hematocrit (test code = 4544-3) 30.5 34.2-44.1 [facility] eryth[facility] mean corpuscular [id number] 06:20:00* Test Item Value Reference Range Interpretation Comments Mean Corpuscular Volume (test code = 787-2) 93.3 81-99 [facility] mean corpuscular hemoglobin (mass per erythrocyte)2019-10-13 06:20:00* Test Item Value Reference Range Interpretation Comments Mean Corpuscular Hemoglobin (test code = 785-6) 29.1 28-32 [facility] mean corpuscular hemoglobin concentration measurement (mass/volume)2019-10-13 06:20:00* Test Item Value Reference Range Interpretation Comments Mean Corpuscular Hemoglobin Concent (test code = 786-4) 31.1 31-35 [facility]wood[facility] [id number]-[id number] 06:20:00* Test Item Value Reference Range Interpretation Comments Red Cell Distribution Width (test code = 75013-4) 15.7 11.7 -14.4 [facility] platelet count (count/volume)2019-10-13 06:20:00* Test Item Value Reference Range Interpretation Comments Platelet Count (test code = 777-3) 334 140-360 [facility] segmented neutrophil count as percentage of total [id number] 06:20:00* Test Item Value Reference Range Interpretation Comments Neutrophils (%) (Auto) (test code = 07492-5) 25.7 38.7-80.0 [facility] lymphocyte count as percentage ot total [id number] 06:20:00* Test Item Value Reference Range Interpretation Comments Lymphocytes (%) (Auto) (test code = 736-9) 53.7 18.0-39.1 [facility] monocyte count as percentage of total bsoxgcahms6536-79-72 06:20:00* Test Item Value Reference Range Interpretation Comments Monocytes (%) (Auto) (test code = 5905-5) 8.0 4.4-11.3 [facility] eosinophil count as percentage of total [id number] 06:20:00* Test Item Value Reference Range Interpretation Comments Eosinophils (%) (Auto) (test code = 713-8) 4.6 0.0-6.0 [facility] basophil count as percentage of total idwlqaxuet1896-15-68 06:20:00* Test Item Value Reference Range Interpretation Comments Basophils (%) (Auto) (test code = 706-2) 1.1 0.0-1.0 [facility]wood[facility] procedure less than one hour [id number] 06:20:00* Test Item Value Reference Range Interpretation Comments IM GRANULOCYTES % (test code = IM GRANULOCYTES %) 6.9 0.0- 1.0 [facility] neutrophil count 2019-10-13 06:20:00* Test Item Value Reference Range Interpretation Comments Neutrophils # (Auto) (test code = 751-8) 1.5 2.1-6.9 [facility] lymphocytes count (number/volume) 2019-10-13 06:20:00* Test Item Value Reference Range Interpretation Comments Lymphocytes # (Auto) (test code = 99478-8) 3.0 1.0-3.2 [facility] monocytes automated count (number/volume)2019-10-13 06:20:00* Test Item Value Reference Range Interpretation Comments Monocytes # (Auto) (test code = 742-7) 0.5 0.2-0.8 [facility] eosinophil count 2019-10-13 06:20:00* Test Item Value Reference Range Interpretation Comments Eosinophils # (Auto) (test code = 711-2) 0.3 0.0-0.4 [facility] basophil count (count/volume)2019-10-13 06:20:00* Test Item Value Reference Range Interpretation Comments Basophils # (Auto) (test code = 704-7) 0.1 0.0-0.1 [facility]wood[facility] procedure less than one hour jqkwzfju6828-24-20 06:20:00* Test Item Value Reference Range Interpretation Comments Absolute Immature Granulocyte (auto (kwabena t code = Absolute Immature Granulocyte (auto) 0.39 0-0.1 [facility] sodium measurement (moles/volume)2019-10-13 06:20:00* Test Item Value Reference Range Interpretation Comments Sodium Level (test code = 2951-2) 141 136-145 [facility] potassium measurement (moles/volume)2019-10-13 06:20:00* Test Item Value Reference Range Interpretation Comments Potassium Level (test code = 2823-3) 3.4 3.5-5.1 [facility] chloride measurement (moles/volume)2019-10-13 06:20:00* Test Item Value Reference Range Interpretation Comments Chloride Level (test code = 2075-0) 110 98-107 [facility] carbon dioxide, total measurement (moles/volume)2019-10-13 06:20:00* Test Item Value Reference Range Interpretation Comments Carbon Dioxide Level (test code = 2028-9) 25 22-29 [facility] anion [id number] 06:20:00* Test Item Value Reference Range Interpretation Comments Anion Gap (test code = 23849-1) 9.4 8-16 [facility] urea nitrogen measurement (mass/volume)2019-10-13 06:20:00* Test Item Value Reference Range Interpretation Comments Blood Urea Nitrogen (test code = 3094-0) 7 7-26 [facility] creatinine measurement (mass/volume)2019-10-13 06:20:00* Test Item Value Reference Range Interpretation Comments Creatinine (test code = 2160-0) 0.72 0.57-1.11 [facility]ererum or plasma urea nitrogen/creatinine mass imazo0443-29-31 06:20:00* Test Item Value Reference Range Interpretation Comments BUN/Creatinine Ratio (test code = 3097-3) 10 6-25 [facility] BrownwoodEstimated glomerular filtration rate (GFR) uciddxbtegpyb0939-03-91 06:20:00* Test Item Value Reference Range Interpretation Comments Estimat Glomerular Filtration Rate (test code = 611530474) > 60 >60 Ranges were taken from the National Kidney Disease Education Program and the [facility] literature.Reference ranges:60 or greater: Swznua96-01 ( for 3 consecutive months): Chronic kidney disease 15 or less: Kidney failureHendrick Medical Center BrownwoodGlucose tjbvokpzhyp9423-12-66 06:20:00* Test Item Value Reference Range Interpretation Comments Glucose Level (test code = IOE8683) 76 74-118 [facility] plasma calcium measurement (mass/volume)2019-10-13 06:20:00* Test Item Value Reference Range Interpretation Comments Calcium Level (test code = 34245-7) 8.0 8.4-10.2 [facility] or plasma magnesium measurement (mass/volume)2019-10-13 06:20:00* Test Item Value Reference Range Interpretation Comments Magnesium Level (test code = 84439-2) 1.6 1.3-2.1 [facility]ere[facility] or plasma total bilirubin measurement (mass/volume)2019-10-13 06:20:00* Test Item Value Reference Range Interpretation Comments Total Bilirubin (test code = 1975-2) 0.1 0.2-1.2 [facility] or plasma conjugated bilirubin measurement (mass/volume)2019-10-13 06:20:00* Test Item Value Reference Range Interpretation Comments Direct Bilirubin (test code = 95581-2) 0.1 0.0-0.5 [facility] BrownwoodFluoroscopic procedure less than one hour aicvjsfd2318-71-19 06:20:00* Test Item Value Reference Range Interpretation Comments Aspartate Amino Transf (AST/SGOT) (test code = Aspartate Amino Transf (AST/SGOT)) 11 5-34 [facility]ererum or plasma alanine aminotransferase measurement (enzymatic activity/volume)2019-10-13 06:20:00* Test Item Value Reference Range Interpretation Comments Alanine Aminotransferase (ALT/SGPT) (test code = 1742-6) 18 0-55 [facility] or plasma protein measurement (mass/volume)2019-10-13 06:20:00* Test Item Value Reference Range Interpretation Comments Total Protein (test code = 2885-2) 4.9 6.5-8.1 [facility] or plasma albumin measurement (mass/volume)2019-10-13 06:20:00* Test Item Value Reference Range Interpretation Comments Albumin (test code = 1751-7) 2.4 3.5-5.0 [facility]ere[facility] or plasma alkaline phosphatase measurement (enzymatic activity/volume)2019-10-13 06:20:00* Test Item Value Reference Range Interpretation Comments Alkaline Phosphatase (test code = 6768-6) 81 40-150 [facility]ererum or plasma thyrotropin measurement by detection limit <= 0.005 miu/l (units/volume)2019-10-13 06:20:00* Test Item Value Reference Range Interpretation Comments Thyroid Stimulating Hormone (TSH) (test code = 06484-1) 3.026 0.350-4.940 [facility] Centertool lactoferrin rzicbxkqt7847-08-44 06:49:00* Test Item Value Reference Range Interpretation Comments Stool Lactoferrin (LAB) (test code = 07151-8) POSITIVE NEGATIVE Testing on stool aspirate specimens is outside [employer] claims since specime n type not validated on this assay.[facility] gastrointestinal hemoglobin ixlmugpyq1742-86-40 06:49:00* Test Item Value Reference Range Interpretation Comments Stool Occult Blood (test code = 2335-8) NEGATIVE NEGATIVE [facility]ererum or plasma C reactive protein measurement (mass/volume)2019-10-12 06:25:00* Test Item Value Reference Range Interpretation Comments C-Reactive Protein (test code = 1988-5) 48 0-10 Performed at: [facility] [id number] Director: Sonu Bangura MD, Phone: [phone] Medical Center BrownwoodFluoroscopic procedure less than one hour hyarmeke3149-97-12 07:57:00* Test Item Value Reference Range Interpretation Comments Differential Total Cells Counted (test code = Differen tial Total Cells Counted) 100 [facility] leukocytes 2019-10-11 07:57:00* Test Item Value Reference Range Interpretation Comments Neutrophils % (Manual) (test code = 12815-4) 53 40-74 [facility] lymphocytes/100 leukocytes 2019-10-11 07:57:00* Test Item Value Reference Range Interpretation Comments Lymphocytes % (Manual) (test code = 737-7) 35 19-48 [facility] blood monocytes/100 leukocytes 2019-10-11 07:57:00* Test Item Value Reference Range Interpretation Comments Monocytes % (Manual) (test code = 744-3) 7 3.4-9.0 [facility] BrownwoodManual blood myelocytes/100 leukocytes 2019-10-11 07:57:00* Test Item Value Reference Range Interpretation Comments Myelocytes % (test code = 749-2) 5 0-0 [facility] BrownwoodBlood platelets count by estimate (number/volume)2019-10-11 07:57:00* Test Item Value Reference Range Interpretation Comments Platelet Estimate (test code = 67063-8) ADEQUATE [facility] BrownwoodPlatelet diuumaadgt4638-23-91 07:57:00* Test Item Value Reference Range Interpretation Comments Platelet Morphology Comment (test code = 91036-8) NORMAL [facility] BrownwoodRBC fnoixadebt9639-26-27 07:57:00* Test Item Value Reference Range Interpretation Comments Red Cell Morphology Comment (test code = 6742-1) NORMAL [facility]ererum or plasma creatine kinase measurement (enzymatic activity/volume)2019-10-11 07:57:00* Test Item Value Reference Range Interpretation Comments Creatine Kinase (test code = 2157-6) 805 29-168 [facility] BrownwoodManual blood band neutrophils form/100 eqtquhrkuv0893-35-80 05:30:00* Test Item Value Reference Range Interpretation Comments Band Neutrophils % (test code = 764-1) 8 [facility] BrownwoodPlasma globulin measurement (mass/volume) 2019-10-10 05:30:00* Test Item Value Reference Range Interpretation Comments Globulin (test code = 50489-3) 3.3 2.3-3.5 [facility]ererum or plasma albumin/globulin mass jpjqi8020-68-56 05:30:00* Test Item Value Reference Range Interpretation Comments Albumin/Globulin Ratio (test code = 1759-0) 0.8 0.8-2.0 [facility]ererum or plasma creatine kinase MB measurement (mass/volume)2019-10-10 05:30:00* Test Item Value Reference Range Interpretation Comments Creatine Kinase MB (test code = 67271-1) 14.80 0-5.0 [facility] BrownwoodTroponin I measurement by highly sensitive enzyme bjeqmvemecn0101-54-56 05:30:00* Test Item Value Reference Range Interpretation Comments Troponin I (test code = 31796-8) < 0.001 0-0.300 [facility] BrownwoodClostridium difficile A and B toxin assay 2019-10-09 19:55:00* Test Item Value Reference Range Interpretation Comments Clostridium Difficile Toxin A & B (test code = 962715211) NEGATIVE NEGATIVE Testing on stool aspirate specimens is outside ladle handler claims since specime n type not validated on this assay.[facility] Procalcitonin (PCT) vzdlp3319-88-16 14:45:00* Test Item Value Reference Range Interpretation Comments Procalcitonin (test code = 058552314) 0.57 0.00-0.08 A procalcitonin (PCT) level above [...] any concentrations <2 ng/mL are obtained.Performed at: [facility] [id number] Director: Sonu Bangura MD, Phone: [phone] Medical Center BrownwoodFluoroscopic procedure less than one hour begirhsg8927-70-81 12:48:00* Test Item Value Reference Range Interpretation [...] complexity tests.Testing performed by [facility] [address] [place], [place] [phone] Director: Tono Gan M.D.IA # [id number] [facility] [place] [facility]CT [facility]PELVIS FF3576-92-69 11:08:00 [facility] [address] [address] Patient Name: LOGAN MCCRACKEN MR #: [id number] : 1975 Age/Sex: 43/F Req #: [id number] Adm Physician: Ordered by: DARCY CASTILLO Report #: [id number] Location: ER Room/Bed: Procedure: [id number] CT/CT ABD OMEN/PELVIS WO Exam Date: 10/09/19 [...] MITCHELL MD 18 Transcribed By: ANUSHKA on 10/09/191118 COPY TO: Lita CASTILLO Urine color hyvcarjomrvxk1017-33-13 10:35:00* Test Item Value Reference Range Interpretation Comments Urine Color (test code = 5778-6) YELLOW YELLOW [facility] BrownwoodUrine pzfsurt6162-83-94 10:35:00* Test Item Value Reference Range Interpretation Comments Urine Clarity (test code = 97032-5) CLEAR CLEAR [facility] Centerpecific gravity of Urine by Test strip 2019-10-09 10:35:00* Test Item Value Reference Range Interpretation Comments Urine Specific [employer] (test code = 5811-5) 1.020 1.010-1.02 5 [facility] BrownwoodUrine pH measurement by automated test vcssg5565-87-17 10:35:00* Test Item Value Reference Range Interpretation Comments Urine pH (test code = 17619-1) 6.5 5-7 [facility] BrownwoodUrine leukocyte esterase detection by ffowpkve7176-87-36 10:35:00* Test Item Value Reference Range Interpretation Comments Urine Leukocyte Esterase (test code = 5799-2) NEGATIVE NEGATIVE [facility] BrownwoodUrine nitrite pfzfzznzl7576-91-23 10:35:00* Test Item Value Reference Range Interpretation Comments Urine Nitrite (test code = 44181-6) NEGATIVE NEGATIVE [facility] BrownwoodUrine protein measurement by test strip (mass/volume)2019-10-09 10:35:00* Test Item Value Reference Range Interpretation Comments Urine Protein (test code = 5804-0) 1+ NEGATIVE [facility] BrownwoodUrine glucose jgcvqleda8120-87-51 10:35:00* Test Item Value Reference Range Interpretation Comments Urine Glucose (UA) (test code = 2349-9) NEGATIVE NEGATIVE [facility] BrownwoodUrine ketones detection by automated test fanub8330-94-08 10:35:00* Test Item Value Reference Range Interpretation Comments Urine Ketones (test code = 66209-2) 2+ NEGATIVE [facility] BrownwoodUrine urobilinogen measurement by test strip (mass/volume)2019-10-09 10:35:00* Test Item Value Reference Range Interpretation Comments Urine Urobilinogen (test code = 07294-4) 0.2 0.2-1 [facility] BrownwoodUrine total bilirubin measurement (mass/volume)2019-10-09 10:35:00* Test Item Value Reference Range Interpretation Comments Urine Bilirubin (test code = 1978-6) SMALL NEGATIVE [facility] BrownwoodUrine erythrocytes ynxnmayei0415-22-12 10:35:00* Test Item Value Reference Range Interpretation Comments Urine Blood (test code = 94315-1) MODERATE NEGATIVE [facility] BrownwoodAutomated urine sediment leukocyte count by microscopy (number/high power field)2019-10-09 10:35:00* Test Item Value Reference Range Interpretation Comments Urine WBC (test code = 5821-4) 6-10 0-5 [facility] BrownwoodErythrocytes detection in urine sediment by light piprwoiijx6807-41-76 10:35:00* Test Item Value Reference Range Interpretation Comments Urine RBC (test code = 89814-8) 11-20 0-5 [facility] BrownwoodBacteria detection in urine sediment by light pjnxkbhpby2146-17-39 10:35:00* Test Item Value Reference Range Interpretation Comments Urine Bacteria (test code = 76705-6) MODERATE NONE [facility] BrownwoodEpithelial cells detection in urine sediment by light bcjfrjtoij4255-68-96 10:35:00* Test Item Value Reference Range Interpretation Comments Urine Epithelial Cells (test code = 08639-3) MODERATE NONE [facility] BrownwoodBacterial urine mdvyrzk9964-40-47 10:35:00* Test Item Value Reference Range Interpretation Comments Urine Culture (test code = 630-4) ESCHERICHIA COLI CHI [facility] [place] [facility] HospitalCHES SINGLE (PORTABLE)2019-10-09 09:51:00 [facility] [address] [place], [place] [address] Patient Name: LOGAN MCCRACKEN MR #: [id number] : 1975 Age/Sex: 43/F Req #: [id number] Adm Physician: Ordered by: DARCY CASTILLO Report #: [id number] Location: ER Room/Bed: Procedure: [id number] DX/CHEST SINGLE (PORTABLE) Exam Date: 10/09/19 Exam [...] DARCY CASTILLO CT BRAIN WO 2019-10-09 09:50:00 [facility] [address] [place] [address] Patient Name: LOGAN MCCRACKEN MR #: [id number] : 1975 Age/Sex: 43/F Req #: [id number] Adm Physician: Ordered by: DARCY CASTILLO Report #: [id number] Location: ER Room/Bed: Procedure: [id number] CT/CT BRA IN WO Exam Date: 10/09/19 [...] Transcribed By: ANUSHKA on 10/09/19954 COPY TO: CASTILLO,DARCY ARNULFO Fluoroscopic procedure less than one hour iezatztv9093-97-00 08:49:00* Test Item Value Reference Range Interpretation Comments Lactic Acid Level (test code = Lactic Acid Level) 1.1 0.5- 2.0 [facility]ererum or plasma lipase measurement (enzymatic activity/volume)2019-10-09 08:49:00* Test Item Value Reference Range Interpretation Comments Lipase (test code = 3040-3) [facility] Centererum or plasma choriogonadotropin ( test) mrkktlxxg8014-81-81 08:49:00* Test Item Value Reference Range Interpretation Comments Human Chorionic Gonadotropin, Qual (test code = 2118-8) NEGATIVE NEGATIVE [facility] BrownwoodBlood tribmbb2030-40-97 08:49:00* Test Item Value Reference Range Interpretation Comments Blood Culture (test code = 45277054) NO GROWTH AFTER 5 DAYS, FINAL REPORT [facility] CenterHOULDER 2+VW RT - VFXU3328-02-58 17:39:00 [facility] [address] [place] [address] Patient Name: LOGAN MCCRACKEN MR #: [id number] : 1975 Age/Sex: 43/F Req #: [id number] Adm Physician: Ordered by: SIMA BAUTISTA MD Report #: [id number] Location: [facility] Room/Bed: Procedure: [id number] H OPD/SHOULDER 2+VW RT - HOPD Exam [...] SIMA BAUTISTA MD CXR 2 VIEW - FURQ2272-57-95 17:38:[address] [address] Patient Name: LOGAN MCCRACKEN MR #: [id number] : 1975 Age/Sex: 43/F Req #: [id number] Adm Physician: Ordered by: SIMA BAUTISTA MD Report #: [id number] Location: [facility] Room/Bed: Procedure: [id number] H OPD/CXR 2 VIEW - HOPD Exam [...] MITCHELL MD 38 Transcribed By: ANUSHKA on 07/25/19 1739 CO PY TO: SIMA BAUTISTA MD Blood Udkwdgx0633-76-63 14:54:00* Test Item Value Reference Range Interpretation Comments Blood Culture (test code = 54390302) NO GROWTH AFTER 5 DAYS, FINAL REPORT [facility]woodUrine BOD4853-55-70 17:11:00* Test Item Value Reference Range Interpretation Comments Urine WBC (test code = 5821-4) 0-5 0-5 [facility] BrownwoodUrine GYJ2653-22-72 17:11:00* Test Item Value Reference Range Interpretation Comments Urine RBC (test code = 29713-9) 0-5 0-5 [facility]woodUrine Zzjgbpqv7356-82-02 17:11:00* Test Item Value Reference Range Interpretation Comments Urine Bacteria (test code = 04193-6) FEW NONE [facility]woodUrine Epithelial Tcqpl9590-66-09 17:11:00 * Test Item Value Reference Range Interpretation Comments Urine Epithelial Cells (test code = 38830-7) FEW NONE [facility] BrownwoodUrine VAL8969-95-79 17:11:00* Test Item Value Reference Range Interpretation Comments Urine WBC (test code = 5821-4) 0-5 0-5 [facility] BrownwoodUrine DYE5310-68-96 17:11:00* Test Item Value Reference Range Interpretation Comments Urine RBC (test code = 83082-8) 0-5 0-5 [facility] BrownwoodUrine Tcxyxmuu3526-74-73 17:11:00* Test Item Value Reference Range Interpretation Comments Urine Bacteria (test code = 55208-1) FEW NONE [facility] BrownwoodUrine Epithelial Jxowp9240-40-63 17:11:00 * Test Item Value Reference Range Interpretation Comments Urine Epithelial Cells (test code = 41491-7) FEW NONE [facility] BrownwoodUrine Qoqh8662-93-89 17:07:00* Test Item Value Reference Range Interpretation Comments Urine Test (test code = 2106-3) NEGATIVE NEGATIVE [facility] BrownwoodUrine Wmli2660-24-83 17:07:00* Test Item Value Reference Range Interpretation Comments Urine Test (test code = 2106-3) NEGATIVE NEGATIVE [facility] BrownwoodUrine Hkypl3548-12-94 17:06:00* Test Item Value Reference Range Interpretation Comments Urine Color (test code = 5778-6) YELLOW YELLOW [facility] BrownwoodUrine Ezbiqky6619-47-10 17:06:00* Test Item Value Reference Range Interpretation Comments Urine Clarity (test code = 20038-4) SL CLOUDY CLEAR [facility] BrownwoodUrine Specific Rkzmgws5824-30-44 17:06:00 * Test Item Value Reference Range Interpretation Comments Urine Specific [employer] (test code = 5811-5) 1.020 1.010-1.02 5 [facility] BrownwoodUrine yY8393-97-17 17:06:00* Test Item Value Reference Range Interpretation Comments Urine pH (test code = 44868-4) 6 5-7 [facility]woodUrine Leukocyte Sfcaqism7471-34-26 17:06:00* Test Item Value Reference Range Interpretation Comments Urine Leukocyte Esterase (test code = 51133-0) NEGATIVE NEGATIV E [facility] BrownwoodUrine Qvjcbni4964-80-73 17:06:00* Test Item Value Reference Range Interpretation Comments Urine Nitrite (test code = 25674-3) NEGATIVE NEGATIVE [facility] BrownwoodUrine Ytgqtfc8203-81-49 17:06:00* Test Item Value Reference Range Interpretation Comments Urine Protein (test code = 24586-1) NEGATIVE NEGATIVE [facility] BrownwoodUrine Glucose (UA)2019-05-19 17:06:00* Test Item Value Reference Range Interpretation Comments Urine Glucose (UA) (test code = 98396-6) NEGATIVE NEGATIVE [facility] BrownwoodUrine Qizgvvw3446-42-42 17:06:00* Test Item Value Reference Range Interpretation Comments Urine Ketones (test code = 12385-6) NEGATIVE NEGATIVE [facility] BrownwoodUrine Pwdtfqgyuols4841-24-84 17:06:00* Test Item Value Reference Range Interpretation Comments Urine Urobilinogen (test code = 14008-9) 0.2 0.2-1 [facility]woodUrine Hcvwllojh0494-45-79 17:06:00* Test Item Value Reference Range Interpretation Comments Urine Bilirubin (test code = 1977-8) NEGATIVE NEGATIVE [facility] BrownwoodUrine Teqnj5061-27-72 17:06:00* Test Item Value Reference Range Interpretation Comments Urine Blood (test code = 51557-5) NEGATIVE NEGATIVE [facility] BrownwoodUrine Wdmov7226-25-91 17:06:00* Test Item Value Reference Range Interpretation Comments Urine Color (test code = 5778-6) YELLOW YELLOW [facility] BrownwoodUrine Vnercdc6818-01-74 17:06:00* Test Item Value Reference Range Interpretation Comments Urine Clarity (test code = 65489-4) SL CLOUDY CLEAR [facility] BrownwoodUrine Specific Gpvombz2280-22-60 17:06:00 * Test Item Value Reference Range Interpretation Comments Urine Specific [employer] (test code = 5811-5) 1.020 1.010-1.02 5 [facility] BrownwoodUrine cW3222-69-25 17:06:00* Test Item Value Reference Range Interpretation Comments Urine pH (test code = 01263-9) 6 5-7 [facility]woodUrine Leukocyte Mjoqmggz7172-41-90 17:06:00* Test Item Value Reference Range Interpretation Comments Urine Leukocyte Esterase (test code = 90132-8) NEGATIVE NEGATIV E [facility] BrownwoodUrine Ipbitvm2686-82-99 17:06:00* Test Item Value Reference Range Interpretation Comments Urine Nitrite (test code = 24091-3) NEGATIVE NEGATIVE [facility] BrownwoodUrine Ffeyyub7551-07-14 17:06:00* Test Item Value Reference Range Interpretation Comments Urine Protein (test code = 93727-8) NEGATIVE NEGATIVE [facility] BrownwoodUrine Glucose (UA)2019-05-19 17:06:00* Test Item Value Reference Range Interpretation Comments Urine Glucose (UA) (test code = 72603-1) NEGATIVE NEGATIVE [facility] BrownwoodUrine Fpmfmby9867-17-88 17:06:00* Test Item Value Reference Range Interpretation Comments Urine Ketones (test code = 27821-2) NEGATIVE NEGATIVE [facility] BrownwoodUrine Jyisqbvokcaz2309-00-33 17:06:00* Test Item Value Reference Range Interpretation Comments Urine Urobilinogen (test code = 63401-9) 0.2 0.2-1 [facility]woodUrine Zdxevjqvi8114-16-80 17:06:00* Test Item Value Reference Range Interpretation Comments Urine Bilirubin (test code = 1977-8) NEGATIVE NEGATIVE [facility] BrownwoodUrine Gzert6955-10-01 17:06:00* Test Item Value Reference Range Interpretation Comments Urine Blood (test code = 87907-9) NEGATIVE NEGATIVE [facility] BrownwoodInfluenza Virus Types A,B Antigen 2019-05-19 16:33:00* Test Item Value Reference Range Interpretation Comments Influenza Virus Types A,B Antigen (test code = 75719-6) NEGATIVE NEGATIVE [facility] BrownwoodInfluenza Virus Types A,B Antigen 2019-05-19 16:33:00* Test Item Value Reference Range Interpretation Comments Influenza Virus Types A,B Antigen (test code = 49678-5) NEGATIVE NEGATIVE [facility] BrownwoodCT CHEST L5977-36-83 16:14:[address] [address] Patient Name: LOGAN MCCRACKEN MR #: [id number] : 1975 Age/Sex: 43/F Req #: [id number] Adm Physician: Ordered by: BRENNAN SOUSA DO Report #: [id number] Location: ER Room/Bed: Procedure: [id number] CT/CT CHEST W Exam Date: 05/19/19 Exam [...] TO: BRENNAN SOUSA DO Differential Total Cells Wnvorzf5326-29-17 15:55:00* Test Item Value Reference Range Interpretation Comments Differential Total Cells Counted (test code = Differen tial Total Cells Counted) 100 [facility] BrownwoodNeutrophils % (Manual)2019-05-19 15:55:00 * Test Item Value Reference Range Interpretation Comments Neutrophils % (Manual) (test code = 93828-6) 62 40-74 [facility] BrownwoodBand Neutrophils %2019-05-19 15:55:00* Test Item Value Reference Range Interpretation Comments Band Neutrophils % (test code = 764-1) 5 [facility] BrownwoodLymphocytes % (Manual)2019-05-19 15:55:00 * Test Item Value Reference Range Interpretation Comments Lymphocytes % (Manual) (test code = 737-7) 20 19-48 [facility] BrownwoodMonocytes % (Manual)2019-05-19 15:55:00* Test Item Value Reference Range Interpretation Comments Monocytes % (Manual) (test code = 744-3) 8 3.4-9.0 [facility]woodEosinophils % (Manual)2019-05-19 15:55:00 * Test Item Value Reference Range Interpretation Comments Eosinophils % (Manual) (test code = 714-6) 5 0-7 [facility] BrownwoodPlatelet Eiprbvhg9109-56-28 15:55:00* Test Item Value Reference Range Interpretation Comments Platelet Estimate (test code = 63192-3) ADEQUATE [facility] BrownwoodPlatelet Morphology Rmixmuo7409-62-95 15:55:00* Test Item Value Reference Range Interpretation Comments Platelet Morphology Comment (test code = 28881-8) NORMAL [facility] BrownwoodRed Cell Morphology Zvbjfgu2558-19-10 15:55:00* Test Item Value Reference Range Interpretation Comments Red Cell Morphology Comment (test code = 6742-1) NORMAL [facility] BrownwoodDifferential Total Cells Counted 2019-05-19 15:55:00* Test Item Value Reference Range Interpretation Comments Differential Total Cells Counted (test code = Differrehan tial Total Cells Counted) 100 [facility] BrownwoodNeutrophils % (Manual)2019-05-19 15:55:00 * Test Item Value Reference Range Interpretation Comments Neutrophils % (Manual) (test code = 10418-7) 62 40-74 [facility] BrownwoodBand Neutrophils %2019-05-19 15:55:00* Test Item Value Reference Range Interpretation Comments Band Neutrophils % (test code = 764-1) 5 [facility] BrownwoodLymphocytes % (Manual)2019-05-19 15:55:00 * Test Item Value Reference Range Interpretation Comments Lymphocytes % (Manual) (test code = 737-7) 20 19-48 [facility] BrownwoodMonocytes % (Manual)2019-05-19 15:55:00* Test Item Value Reference Range Interpretation Comments Monocytes % (Manual) (test code = 744-3) 8 3.4-9.0 [facility] BrownwoodEosinophils % (Manual)2019-05-19 15:55:00 * Test Item Value Reference Range Interpretation Comments Eosinophils % (Manual) (test code = 714-6) 5 0-7 [facility] BrownwoodPlatelet Eoktlygb3998-82-49 15:55:00* Test Item Value Reference Range Interpretation Comments Platelet Estimate (test code = 54231-2) ADEQUATE [facility] BrownwoodPlatelet Morphology Xnwfwxg1472-49-92 15:55:00* Test Item Value Reference Range Interpretation Comments Platelet Morphology Comment (test code = 16642-8) NORMAL [facility] BrownwoodRed Cell Morphology Awpyatq4242-38-04 15:55:00* Test Item Value Reference Range Interpretation Comments Red Cell Morphology Comment (test code = 6742-1) NORMAL [facility] BrownwoodUrine human chorionic gonadotropin (hCG) aohxvmczm9291-82-74 15:29:00* Test Item Value Reference Range Interpretation Comments Urine Test (test code = 2106-3) NEGATIVE NEGATIVE [facility] BrownwoodLactic Acid Mjvyj1372-83-26 15:19:00* Test Item Value Reference Range Interpretation Comments Lactic Acid Level (test code = Lactic Acid Level) 0.8 0.5- 2.0 [facility] BrownwoodLactic Acid Yrvfq5035-81-87 15:19:00* Test Item Value Reference Range Interpretation Comments Lactic Acid Level (test code = Lactic Acid Level) 0.8 0.5- 2.0 [facility] BrownwoodActivated Partial Thromboplast Time 2019-05-19 15:12:00* Test Item Value Reference Range Interpretation Comments Activated Partial Thromboplast Time (test code = 02279-5) 33.0 23.8-35.5 [facility] BrownwoodActivated Partial Thromboplast Time 2019-05-19 15:12:00* Test Item Value Reference Range Interpretation Comments Activated Partial Thromboplast Time (test code = 52102-8) 33.0 23.8-35.5 [facility] BrownwoodWhite Blood Hcfiu9938-94-30 15:10:00* Test Item Value Reference Range Interpretation Comments White Blood Count (test code = 6690-2) 9.16 4.8-10.8 [facility] BrownwoodRed Blood Amtrk4128-11-12 15:10:00* Test Item Value Reference Range Interpretation Comments Red Blood Count (test code = 789-8) 3.59 3.6-5.1 L [facility] BrownwoodHemoglobin2020-01-05 15:10:00* Test Item Value Reference Range Interpretation Comments Hemoglobin (test code = 39562-4) 11.1 12.0-16.0 L [facility] BrownwoodHematocrit2020-01-05 15:10:00* Test Item Value Reference Range Interpretation Comments Hematocrit (test code = 4544-3) 34.9 34.2-44.1 [facility] BrownwoodMean Corpuscular Iitemt2147-43-12 15:10:00* Test Item Value Reference Range Interpretation Comments Mean Corpuscular Volume (test code = 787-2) 97.2 81-99 [facility] BrownwoodMean Corpuscular Kmyhzdzlmn7743-43-65 15:10:00* Test Item Value Reference Range Interpretation Comments Mean Corpuscular Hemoglobin (test code = 785-6) 30.9 28-32 [facility] BrownwoodMean Corpuscular Hemoglobin Concent 2019-05-19 15:10:00* Test Item Value Reference Range Interpretation Comments Mean Corpuscular Hemoglobin Concent (test code = 786-4) 31.8 31-35 [facility] BrownwoodRed Cell Distribution Eedba7897-91-42 15:10:00* Test Item Value Reference Range Interpretation Comments Red Cell Distribution Width (test code = 34151-6) 13.8 11.7 -14.4 [facility] BrownwoodPlatelet Vdgyd4481-11-28 15:10:00* Test Item Value Reference Range Interpretation Comments Platelet Count (test code = 777-3) 265 140-360 [facility] BrownwoodNeutrophils (%) (Auto)2019-05-19 15:10:00 * Test Item Value Reference Range Interpretation Comments Neutrophils (%) (Auto) (test code = 93623-7) 68.1 38.7-80.0 [facility] BrownwoodLymphocytes (%) (Auto)2019-05-19 15:10:00 * Test Item Value Reference Range Interpretation Comments Lymphocytes (%) (Auto) (test code = 736-9) 20.0 18.0-39.1 [facility] BrownwoodMonocytes (%) (Auto)2019-05-19 15:10:00* Test Item Value Reference Range Interpretation Comments Monocytes (%) (Auto) (test code = 5905-5) 7.4 4.4-11.3 [facility] BrownwoodEosinophils (%) (Auto)2019-05-19 15:10:00 * Test Item Value Reference Range Interpretation Comments Eosinophils (%) (Auto) (test code = 713-8) 4.0 0.0-6.0 [facility] BrownwoodBasophils (%) (Auto)2019-05-19 15:10:00* Test Item Value Reference Range Interpretation Comments Basophils (%) (Auto) (test code = 706-2) 0.2 0.0-1.0 [facility] BrownwoodIM GRANULOCYTES %2019-05-19 15:10:00* Test Item Value Reference Range Interpretation Comments IM GRANULOCYTES % (test code = IM GRANULOCYTES %) 0.3 0.0- 1.0 [facility] BrownwoodNeutrophils # (Auto)2019-05-19 15:10:00* Test Item Value Reference Range Interpretation Comments Neutrophils # (Auto) (test code = 751-8) 6.2 2.1-6.9 [facility] BrownwoodLymphocytes # (Auto)2019-05-19 15:10:00* Test Item Value Reference Range Interpretation Comments Lymphocytes # (Auto) (test code = 90860-6) 1.8 1.0-3.2 [facility] BrownwoodMonocytes # (Auto)2019-05-19 15:10:00* Test Item Value Reference Range Interpretation Comments Monocytes # (Auto) (test code = 742-7) 0.7 0.2-0.8 [facility] BrownwoodEosinophils # (Auto)2019-05-19 15:10:00* Test Item Value Reference Range Interpretation Comments Eosinophils # (Auto) (test code = 711-2) 0.4 0.0-0.4 [facility] BrownwoodBasophils # (Auto)2019-05-19 15:10:00* Test Item Value Reference Range Interpretation Comments Basophils # (Auto) (test code = 704-7) 0.0 0.0-0.1 [facility] BrownwoodAbsolute Immature Granulocyte (auto 2019-05-19 15:10:00* Test Item Value Reference Range Interpretation Comments Absolute Immature Granulocyte (auto (kwabena t code = Absolute Immature Granulocyte (auto) 0.03 0-0.1 [facility] BrownwoodProthrombin Kcee2706-99-57 15:10:00* Test Item Value Reference Range Interpretation Comments Prothrombin Time (test code = 5902-2) 13.9 11.9-14.5 [facility] BrownwoodProthromb Time International Ratio 2019-05-19 15:10:00* Test Item Value Reference Range Interpretation Comments Prothromb Time International Ratio (test code = 6301-6) 1.02 Oral Anticoagulant Therapy INR Values:1. Low Intensity Therapy 1.5 - 2.02 . Moderate Intensity Therapy 2.0 - 3.03. High Intensity Therapy(1) 2.5 - 3. 54. High Intensity Therapy(2) 3.0 - 4.05. Panic Value INR > 5.0 [facility] BrownwoodWhite Blood Dceaw3213-76-11 15:10:00* Test Item Value Reference Range Interpretation Comments White Blood Count (test code = 6690-2) 9.16 4.8-10.8 [facility] BrownwoodRed Blood Xuxnh8865-34-69 15:10:00* Test Item Value Reference Range Interpretation Comments Red Blood Count (test code = 789-8) 3.59 3.6-5.1 L [facility] BrownwoodHemoglobin2020-01-05 15:10:00* Test Item Value Reference Range Interpretation Comments Hemoglobin (test code = 19084-2) 11.1 12.0-16.0 L [facility] BrownwoodHematocrit2020-01-05 15:10:00* Test Item Value Reference Range Interpretation Comments Hematocrit (test code = 4544-3) 34.9 34.2-44.1 [facility] BrownwoodMean Corpuscular Qrusgl9942-52-01 15:10:00* Test Item Value Reference Range Interpretation Comments Mean Corpuscular Volume (test code = 787-2) 97.2 81-99 [facility] BrownwoodMean Corpuscular Xetqkfkjlw0331-21-07 15:10:00* Test Item Value Reference Range Interpretation Comments Mean Corpuscular Hemoglobin (test code = 785-6) 30.9 28-32 [facility] BrownwoodMean Corpuscular Hemoglobin Concent 2019-05-19 15:10:00* Test Item Value Reference Range Interpretation Comments Mean Corpuscular Hemoglobin Concent (test code = 786-4) 31.8 31-35 [facility] BrownwoodRed Cell Distribution Clklw0772-02-35 15:10:00* Test Item Value Reference Range Interpretation Comments Red Cell Distribution Width (test code = 32088-6) 13.8 11.7 -14.4 [facility] BrownwoodPlatelet Vsjep3778-74-67 15:10:00* Test Item Value Reference Range Interpretation Comments Platelet Count (test code = 777-3) 265 140-360 [facility] BrownwoodNeutrophils (%) (Auto)2019-05-19 15:10:00 * Test Item Value Reference Range Interpretation Comments Neutrophils (%) (Auto) (test code = 17120-8) 68.1 38.7-80.0 [facility] BrownwoodLymphocytes (%) (Auto)2019-05-19 15:10:00 * Test Item Value Reference Range Interpretation Comments Lymphocytes (%) (Auto) (test code = 736-9) 20.0 18.0-39.1 [facility] BrownwoodMonocytes (%) (Auto)2019-05-19 15:10:00* Test Item Value Reference Range Interpretation Comments Monocytes (%) (Auto) (test code = 5905-5) 7.4 4.4-11.3 [facility] BrownwoodEosinophils (%) (Auto)2019-05-19 15:10:00 * Test Item Value Reference Range Interpretation Comments Eosinophils (%) (Auto) (test code = 713-8) 4.0 0.0-6.0 [facility] BrownwoodBasophils (%) (Auto)2019-05-19 15:10:00* Test Item Value Reference Range Interpretation Comments Basophils (%) (Auto) (test code = 706-2) 0.2 0.0-1.0 [facility] BrownwoodIM GRANULOCYTES %2019-05-19 15:10:00* Test Item Value Reference Range Interpretation Comments IM GRANULOCYTES % (test code = IM GRANULOCYTES %) 0.3 0.0- 1.0 [facility] BrownwoodNeutrophils # (Auto)2019-05-19 15:10:00* Test Item Value Reference Range Interpretation Comments Neutrophils # (Auto) (test code = 751-8) 6.2 2.1-6.9 [facility] BrownwoodLymphocytes # (Auto)2019-05-19 15:10:00* Test Item Value Reference Range Interpretation Comments Lymphocytes # (Auto) (test code = 02486-2) 1.8 1.0-3.2 [facility] BrownwoodMonocytes # (Auto)2019-05-19 15:10:00* Test Item Value Reference Range Interpretation Comments Monocytes # (Auto) (test code = 742-7) 0.7 0.2-0.8 [facility] BrownwoodEosinophils # (Auto)2019-05-19 15:10:00* Test Item Value Reference Range Interpretation Comments Eosinophils # (Auto) (test code = 711-2) 0.4 0.0-0.4 [facility] BrownwoodBasophils # (Auto)2019-05-19 15:10:00* Test Item Value Reference Range Interpretation Comments Basophils # (Auto) (test code = 704-7) 0.0 0.0-0.1 [facility] BrownwoodAbsolute Immature Granulocyte (auto 2019-05-19 15:10:00* Test Item Value Reference Range Interpretation Comments Absolute Immature Granulocyte (auto (kwabena t code = Absolute Immature Granulocyte (auto) 0.03 0-0.1 [facility] BrownwoodProthrombin Egbn9036-83-12 15:10:00* Test Item Value Reference Range Interpretation Comments Prothrombin Time (test code = 5902-2) 13.9 11.9-14.5 [facility] BrownwoodProthromb Time International Ratio 2019-05-19 15:10:00* Test Item Value Reference Range Interpretation Comments Prothromb Time International Ratio (test code = 6301-6) 1.02 Oral Anticoagulant Therapy INR Values:1. Low Intensity Therapy 1.5 - 2.02 . Moderate Intensity Therapy 2.0 - 3.03. High Intensity Therapy(1) 2.5 - 3. 54. High Intensity Therapy(2) 3.0 - 4.05. Panic Value INR > 5.0 [facility] BrownwoodInfluenza virus A and B antigen identification by xvzguivbyfngxhtnki6091-74-07 15:08:00* Test Item Value Reference Range Interpretation Comments Influenza Virus Types A,B Antigen (test code = 61937-4) NEGATIVE NEGATIVE [facility] Nrtyf5491-51-03 14:33:00* Test Item Value Reference Range Interpretation Comments Sodium Level (test code = 2951-2) 137 136-145 [facility] BrownwoodPotassium Pxkul8124-81-47 14:33:00* Test Item Value Reference Range Interpretation Comments Potassium Level (test code = 2823-3) 3.4 3.5-5.1 L [facility] BrownwoodChloride Alhhg5313-61-21 14:33:00* Test Item Value Reference Range Interpretation Comments Chloride Level (test code = 2075-0) 97 98-107 L [facility] BrownwoodCarbon Dioxide Kdlvo5887-58-62 14:33:00* Test Item Value Reference Range Interpretation Comments Carbon Dioxide Level (test code = 2028-9) 28 22-29 [facility] BrownwoodAnion Yzu0465-69-04 14:33:00* Test Item Value Reference Range Interpretation Comments Anion Gap (test code = 48888-8) 15.4 8-16 [facility] BrownwoodBlood Urea Sgduwjqx9945-11-28 14:33:00* Test Item Value Reference Range Interpretation Comments Blood Urea Nitrogen (test code = 3094-0) 9 7-26 [facility] BrownwoodCreatinine2020-01-05 14:33:00* Test Item Value Reference Range Interpretation Comments Creatinine (test code = 2160-0) 0.74 0.57-1.11 [facility] BrownwoodBUN/Creatinine Mexsj2197-18-16 14:33:00* Test Item Value Reference Range Interpretation Comments BUN/Creatinine Ratio (test code = 3097-3) 12 6- [facility] BrownwoodEstimat Glomerular Filtration Rate 2019-05-19 14:33:00* Test Item Value Reference Range Interpretation Comments Estimat Glomerular Filtration Rate (test code = 435635296) > 60 >60 Ranges were taken from the National Kidney Disease Education Program and the [facility] literature.Reference ranges:60 or greater: Wmkivu04-14 ( for 3 consecutive months): Chronic kidney disease 15 or less: Kidney failureHendrick Medical Center BrownwoodGlucose Pjjth3020-20-81 14:33:00* Test Item Value Reference Range Interpretation Comments Glucose Level (test code = SHU8276) 94 74-118 [facility] BrownwoodCalcium Opwju4390-86-97 14:33:00* Test Item Value Reference Range Interpretation Comments Calcium Level (test code = 53775-2) 8.6 8.4-10.2 [facility] BrownwoodTotal Pwxlddjhw0740-70-83 14:33:00* Test Item Value Reference Range Interpretation Comments Total Bilirubin (test code = 1975-2) 0.2 0.2-1.2 [facility] BrownwoodAspartate Amino Transf (AST/SGOT) 2019-05-19 14:33:00* Test Item Value Reference Range Interpretation Comments Aspartate Amino Transf (AST/SGOT) (test code = Aspartate Amino Transf (AST/SGOT)) 16 5-34 [facility] BrownwoodAlanine Aminotransferase (ALT/SGPT) 2019-05-19 14:33:00* Test Item Value Reference Range Interpretation Comments Alanine Aminotransferase (ALT/SGPT) (test code = 1742-6) 35 0-55 [facility] BrownwoodTotal Jfvsdeb3280-72-54 14:33:00* Test Item Value Reference Range Interpretation Comments Total Protein (test code = 2885-2) 6.0 6.5-8.1 L [facility] BrownwoodAlbumin2020-01-05 14:33:00* Test Item Value Reference Range Interpretation Comments Albumin (test code = 1751-7) 3.4 3.5-5.0 L [facility] BrownwoodGlobulin2020-01-05 14:33:00* Test Item Value Reference Range Interpretation Comments Globulin (test code = 25352-8) 2.6 2.3-3.5 [facility] BrownwoodAlbumin/Globulin Lffsl8741-25-44 14:33:00 * Test Item Value Reference Range Interpretation Comments Albumin/Globulin Ratio (test code = 1759-0) 1.3 0.8-2.0 [facility] BrownwoodAlkaline Dgrcqcbsbnk8908-04-72 14:33:00* Test Item Value Reference Range Interpretation Comments Alkaline Phosphatase (test code = 6768-6) 119 40-150 [facility] BrownwoodCreatine Cfepae1956-46-76 14:33:00* Test Item Value Reference Range Interpretation Comments Creatine Kinase (test code = 2157-6) 45 29-168 [facility] BrownwoodCreatine Kinase CH6560-93-28 14:33:00* Test Item Value Reference Range Interpretation Comments Creatine Kinase MB (test code = 96271-0) 0.20 0-5.0 [facility] BrownwoodTroponin O5393-29-00 14:33:00* Test Item Value Reference Range Interpretation Comments Troponin I (test code = FAE0731) 0.004 0-0.300 [facility] Centerodium Mhryr7721-62-93 14:33:00* Test Item Value Reference Range Interpretation Comments Sodium Level (test code = 2951-2) 137 136-145 [facility] BrownwoodPotassium Muwqs7015-42-04 14:33:00* Test Item Value Reference Range Interpretation Comments Potassium Level (test code = 2823-3) 3.4 3.5-5.1 L [facility] BrownwoodChloride Dwzve4865-78-87 14:33:00* Test Item Value Reference Range Interpretation Comments Chloride Level (test code = 2075-0) 97 98-107 L [facility] BrownwoodCarbon Dioxide Ssapu2331-64-23 14:33:00* Test Item Value Reference Range Interpretation Comments Carbon Dioxide Level (test code = 2028-9) 28 22-29 [facility] BrownwoodAnion Flu4859-06-12 14:33:00* Test Item Value Reference Range Interpretation Comments Anion Gap (test code = 91744-1) 15.4 8-16 [facility] BrownwoodBlood Urea Eilxmvfd1258-45-60 14:33:00* Test Item Value Reference Range Interpretation Comments Blood Urea Nitrogen (test code = 3094-0) 9 7-26 [facility] BrownwoodCreatinine2020-01-05 14:33:00* Test Item Value Reference Range Interpretation Comments Creatinine (test code = 2160-0) 0.74 0.57-1.11 [facility] BrownwoodBUN/Creatinine Qwycp1327-53-06 14:33:00* Test Item Value Reference Range Interpretation Comments BUN/Creatinine Ratio (test code = 3097-3) 12 6-25 [facility] BrownwoodEstimat Glomerular Filtration Rate 2019-05-19 14:33:00* Test Item Value Reference Range Interpretation Comments Estimat Glomerular Filtration Rate (test code = 493446406) > 60 >60 Ranges were taken from the National Kidney Disease Education Program and the [facility] Foundation literature.Reference ranges:60 or greater: Nxckgg87-81 ( for 3 consecutive months): Chronic kidney disease 15 or less: Kidney failureHendrick Medical Center BrownwoodGlucose Zxosl8906-56-71 14:33:00* Test Item Value Reference Range Interpretation Comments Glucose Level (test code = DEO0707) 94 74-118 [facility] BrownwoodCalcium Qhpii0388-18-09 14:33:00* Test Item Value Reference Range Interpretation Comments Calcium Level (test code = 73694-7) 8.6 8.4-10.2 [facility] BrownwoodTotal Wfbjwyxgc6953-44-45 14:33:00* Test Item Value Reference Range Interpretation Comments Total Bilirubin (test code = 1975-2) 0.2 0.2-1.2 [facility] BrownwoodAspartate Amino Transf (AST/SGOT) 2019-05-19 14:33:00* Test Item Value Reference Range Interpretation Comments Aspartate Amino Transf (AST/SGOT) (test code = Aspartate Amino Transf (AST/SGOT)) 16 5-34 [facility] BrownwoodAlanine Aminotransferase (ALT/SGPT) 2019-05-19 14:33:00* Test Item Value Reference Range Interpretation Comments Alanine Aminotransferase (ALT/SGPT) (test code = 1742-6) 35 0-55 [facility] BrownwoodTotal Uacvfea1090-81-82 14:33:00* Test Item Value Reference Range Interpretation Comments Total Protein (test code = 2885-2) 6.0 6.5-8.1 L [facility] BrownwoodAlbumin2020-01-05 14:33:00* Test Item Value Reference Range Interpretation Comments Albumin (test code = 1751-7) 3.4 3.5-5.0 L [facility] BrownwoodGlobulin2020-01-05 14:33:00* Test Item Value Reference Range Interpretation Comments Globulin (test code = 37569-3) 2.6 2.3-3.5 [facility] BrownwoodAlbumin/Globulin Nyvkb1344-90-47 14:33:00 * Test Item Value Reference Range Interpretation Comments Albumin/Globulin Ratio (test code = 1759-0) 1.3 0.8-2.0 [facility] BrownwoodAlkaline Rsfbvkcjmub9237-16-51 14:33:00* Test Item Value Reference Range Interpretation Comments Alkaline Phosphatase (test code = 6768-6) 119 40-150 [facility] BrownwoodCreatine Qvwfxv6063-39-92 14:33:00* Test Item Value Reference Range Interpretation Comments Creatine Kinase (test code = 2157-6) 45 29-168 [facility] BrownwoodCreatine Kinase CA5076-89-08 14:33:00* Test Item Value Reference Range Interpretation Comments Creatine Kinase MB (test code = 50488-5) 0.20 0-5.0 [facility] BrownwoodTroponin K1302-41-21 14:33:00* Test Item Value Reference Range Interpretation Comments Troponin I (test code = MXX9755) 0.004 0-0.300 [facility] BrownwoodCHEST 2 LOJGZ1641-67-41 14:00:00 [facility] [address] [address] Patient Name: LOGAN MCCRACKEN MR #: [id number] : 1975 Age/Sex: 43/F Req #: [id number] Adm Physician: Ordered by: GERARDO SARGENT SEAMSTRESS FITTER Report #: [id number] Location: ER Room/Bed: Procedure: [id number] DX/CHEST 2 VIEWS Exam Date: 05/19/19 Exam [...] BENSON on 05/19/191401 COPY TO: GERARDO SARGENT NP Manual blood eosinophil count as percentage of total psasmhqegk4181-81-29 13:50:00* Test Item Value Reference Range Interpretation Comments Eosinophils % (Manual) (test code = 714-6) 5 0-7 [facility] BrownwoodProthrombin time (PT) in platelet poor plasma by coagulation ksrhl9204-35-05 13:50:00* Test Item Value Reference Range Interpretation Comments Prothrombin Time (test code = 5902-2) 13.9 11.9-14.5 [facility] BrownwoodINR in Platelet poor plasma by Coagulation wbztc7084-20-35 13:50:00* Test Item Value Reference Range Interpretation Comments Prothromb Time International Ratio (test code = 6301-6) 1.02 Oral Anticoagulant Therapy INR Values:1. Low Intensity Therapy 1.5 - 2.02 . Moderate Intensity Therapy 2.0 - 3.03. High Intensity Therapy(1) 2.5 - 3. 54. High Intensity Therapy(2) 3.0 - 4.05. Panic Value INR > 5.0 [facility] BrownwoodActivated partial thromboplastin time (aPTT) in platelet poor plasma by coagulation spwdu9368-24-61 13:50:00* Test Item Value Reference Range Interpretation Comments Activated Partial Thromboplast Time (test code = 35284-8) 33.0 23.8-35.5 [facility] BrownwoodBlood Gzqztcu7646-20-82 20:38:00* Test Item Value Reference Range Interpretation Comments Blood Culture (test code = 87601210) NO GROWTH AFTER 5 DAYS, FINAL REPORT [facility] BrownwoodCreatine Kinase RL4375-80-99 21:35:00* Test Item Value Reference Range Interpretation Comments Creatine Kinase MB (test code = 25723-9) 1.20 0-5.0 [facility] BrownwoodTroponin P0823-65-94 21:35:00* Test Item Value Reference Range Interpretation Comments Troponin I (test code = GDX0289) < 0.001 0-0.300 [facility] BrownwoodThyroid Stimulating Hormone (TSH) 2018-09-18 21:35:00* Test Item Value Reference Range Interpretation Comments Thyroid Stimulating Hormone (TSH) (test code = 94458-1) 3.336 0.350-4.940 [facility] BrownwoodThyroid Stimulating Hormone (TSH) 2018-09-18 21:35:00* Test Item Value Reference Range Interpretation Comments Thyroid Stimulating Hormone (TSH) (test code = 08540-6) 3.336 0.350-4.940 [facility] BrownwoodB-Type Natriuretic Dtmytke3019-91-88 21:20:00* Test Item Value Reference Range Interpretation Comments B-Type Natriuretic Peptide (test code = 73930-5) 24.2 0-100 [facility] BrownwoodB-Type Natriuretic Epkuruu4549-55-00 21:20:00* Test Item Value Reference Range Interpretation Comments B-Type Natriuretic Peptide (test code = 36971-1) 24.2 0-100 [facility] BrownwoodD-Dimer Quantitative (PE/DVT)2018-09-18 21:15:00* Test Item Value Reference Range Interpretation Comments D-Dimer Quantitative (PE/DVT) (test code = 46621-1) 0.33 0. 00-0.45 As with all in vitro diagnostic tests, the test results should be interpreted by the physician in conjunction with clinical findings and other test results.Test results are reported in NEW D-dimer units(ug/mLFEU).[facility] BrownwoodD-Dimer Quantitative (PE/DVT)2018-09-18 21:15:00* Test Item Value Reference Range Interpretation Comments D-Dimer Quantitative (PE/DVT) (test code = 54982-2) 0.33 0. 00-0.45 As with all in vitro diagnostic tests, the test results should be interpreted by the physician in conjunction with clinical findings and other test results.Test results are reported in NEW D-dimer units(ug/mLFEU).[facility] Centerodium Zcqfw3445-42-50 21:13:00* Test Item Value Reference Range Interpretation Comments Sodium Level (test code = 2951-2) 139 136-145 [facility] BrownwoodPotassium Ghyhj9061-13-93 21:13:00* Test Item Value Reference Range Interpretation Comments Potassium Level (test code = 2823-3) 3.7 3.5-5.1 [facility] BrownwoodChloride Wgzrt4643-52-19 21:13:00* Test Item Value Reference Range Interpretation Comments Chloride Level (test code = 2075-0) 103 98-107 [facility] BrownwoodCarbon Dioxide Petyz9825-46-98 21:13:00* Test Item Value Reference Range Interpretation Comments Carbon Dioxide Level (test code = 2028-9) 27 22-29 [facility] BrownwoodAnion Flu4215-04-20 21:13:00* Test Item Value Reference Range Interpretation Comments Anion Gap (test code = 85277-9) 12.7 8-16 [facility]woodBlood Urea Tpmpmlhq1337-00-91 21:13:00* Test Item Value Reference Range Interpretation Comments Blood Urea Nitrogen (test code = 3094-0) 12 7-26 [facility]woodCreatinine2019-05-07 21:13:00* Test Item Value Reference Range Interpretation Comments Creatinine (test code = 2160-0) 0.80 0.57-1.11 [facility]woodBUN/Creatinine Sluxb4099-50-13 21:13:00* Test Item Value Reference Range Interpretation Comments BUN/Creatinine Ratio (test code = 3097-3) 15 6-25 [facility] BrownwoodEstimat Glomerular Filtration Rate 2018-09-18 21:13:00* Test Item Value Reference Range Interpretation Comments Estimat Glomerular Filtration Rate (test code = 870412028) > 60 >60 Ranges were taken from the National Kidney Disease Education Program and the [facility] literature.Reference ranges:60 or greater: Ywyjgu48-00 ( for 3 consecutive months): Chronic kidney disease 15 or less: Kidney failureH[facility]rick [facility] BrownwoodGlucose Oigrh7473-80-80 21:13:00* Test Item Value Reference Range Interpretation Comments Glucose Level (test code = IWG8162) 89 74-118 [facility] BrownwoodCalcium Lmvfw4265-48-94 21:13:00* Test Item Value Reference Range Interpretation Comments Calcium Level (test code = 82753-0) 9.0 8.4-10.2 [facility] BrownwoodTotal Lprycmmfc7452-11-88 21:13:00* Test Item Value Reference Range Interpretation Comments Total Bilirubin (test code = 1975-2) 0.2 0.2-1.2 [facility] BrownwoodAspartate Amino Transf (AST/SGOT) 2018-09-18 21:13:00* Test Item Value Reference Range Interpretation Comments Aspartate Amino Transf (AST/SGOT) (test code = Aspartate Amino Transf (AST/SGOT)) 14 5-34 [facility] BrownwoodAlanine Aminotransferase (ALT/SGPT) 2018-09-18 21:13:00* Test Item Value Reference Range Interpretation Comments Alanine Aminotransferase (ALT/SGPT) (test code = 1742-6) 18 0-55 [facility] BrownwoodTotal Oyovfbb5321-34-80 21:13:00* Test Item Value Reference Range Interpretation Comments Total Protein (test code = 2885-2) 6.2 6.5-8.1 L [facility] BrownwoodAlbumin2019-05-07 21:13:00* Test Item Value Reference Range Interpretation Comments Albumin (test code = 1751-7) 3.2 3.5-5.0 L [facility] BrownwoodGlobulin2019-05-07 21:13:00* Test Item Value Reference Range Interpretation Comments Globulin (test code = 85056-1) 3.0 2.3-3.5 [facility]woodAlbumin/Globulin Swkaf8972-23-20 21:13:00 * Test Item Value Reference Range Interpretation Comments Albumin/Globulin Ratio (test code = 1759-0) 1.1 0.8-2.0 [facility] BrownwoodAlkaline Gncjeqiioyq3167-01-66 21:13:00* Test Item Value Reference Range Interpretation Comments Alkaline Phosphatase (test code = 6768-6) 116 40-150 [facility]woodCreatine Brnkgj2007-66-56 21:13:00* Test Item Value Reference Range Interpretation Comments Creatine Kinase (test code = 2157-6) 90 29-168 [facility] BrownwoodProthrombin Giui3317-65-03 21:06:00* Test Item Value Reference Range Interpretation Comments Prothrombin Time (test code = 5902-2) 13.8 11.9-14.5 [facility] BrownwoodProthromb Time International Ratio 2018-09-18 21:06:00* Test Item Value Reference Range Interpretation Comments Prothromb Time International Ratio (test code = 6301-6) 1.01 Oral Anticoagulant Therapy INR Values:1. Low Intensity Therapy 1.5 - 2.02 . Moderate Intensity Therapy 2.0 - 3.03. High Intensity Therapy(1) 2.5 - 3. 54. High Intensity Therapy(2) 3.0 - 4.05. Panic Value INR > 5.0 [facility] BrownwoodActivated Partial Thromboplast Time 2018-09-18 21:06:00* Test Item Value Reference Range Interpretation Comments Activated Partial Thromboplast Time (test code = 52383-0) 34.6 23.8-35.5 [facility] BrownwoodLactic Acid Qybvk4633-67-08 20:57:00* Test Item Value Reference Range Interpretation Comments Lactic Acid Level (test code = Lactic Acid Level) 9.1 4.5- 19.8 [facility] BrownwoodWhite Blood Wxtzx1430-99-64 20:55:00* Test Item Value Reference Range Interpretation Comments White Blood Count (test code = 6690-2) 7.90 4.8-10.8 [facility] BrownwoodRed Blood Dfrpp1716-51-51 20:55:00* Test Item Value Reference Range Interpretation Comments Red Blood Count (test code = 789-8) 3.30 3.6-5.1 L [facility] BrownwoodHemoglobin2019-05-07 20:55:00* Test Item Value Reference Range Interpretation Comments Hemoglobin (test code = 49008-5) 10.1 12.0-16.0 L [facility] BrownwoodHematocrit2019-05-07 20:55:00* Test Item Value Reference Range Interpretation Comments Hematocrit (test code = 4544-3) 32.3 34.2-44.1 L [facility] BrownwoodMean Corpuscular Qresiw5632-19-23 20:55:00* Test Item Value Reference Range Interpretation Comments Mean Corpuscular Volume (test code = 787-2) 97.9 81-99 [facility] BrownwoodMean Corpuscular Jevkvzubhr4280-25-32 20:55:00* Test Item Value Reference Range Interpretation Comments Mean Corpuscular Hemoglobin (test code = 785-6) 30.6 28-32 [facility]woodMean Corpuscular Hemoglobin Concent 2018-09-18 20:55:00* Test Item Value Reference Range Interpretation Comments Mean Corpuscular Hemoglobin Concent (test code = 786-4) 31.3 31-35 [facility] BrownwoodRed Cell Distribution Mrzqd8932-91-99 20:55:00* Test Item Value Reference Range Interpretation Comments Red Cell Distribution Width (test code = 99201-4) 13.6 11.7 -14.4 [facility] BrownwoodPlatelet Ywuzo5543-50-31 20:55:00* Test Item Value Reference Range Interpretation Comments Platelet Count (test code = 777-3) 420 140-360 H [facility] BrownwoodNeutrophils (%) (Auto)2018-09-18 20:55:00 * Test Item Value Reference Range Interpretation Comments Neutrophils (%) (Auto) (test code = 08798-4) 77.7 38.7-80.0 [facility] BrownwoodLymphocytes (%) (Auto)2018-09-18 20:55:00 * Test Item Value Reference Range Interpretation Comments Lymphocytes (%) (Auto) (test code = 736-9) 13.7 18.0-39.1 L [facility] BrownwoodMonocytes (%) (Auto)2018-09-18 20:55:00* Test Item Value Reference Range Interpretation Comments Monocytes (%) (Auto) (test code = 5905-5) 3.4 4.4-11.3 L [facility]woodEosinophils (%) (Auto)2018-09-18 20:55:00 * Test Item Value Reference Range Interpretation Comments Eosinophils (%) (Auto) (test code = 713-8) 4.4 0.0-6.0 [facility]woodBasophils (%) (Auto)2018-09-18 20:55:00* Test Item Value Reference Range Interpretation Comments Basophils (%) (Auto) (test code = 706-2) 0.4 0.0-1.0 [facility] BrownwoodIM GRANULOCYTES %2018-09-18 20:55:00* Test Item Value Reference Range Interpretation Comments IM GRANULOCYTES % (test code = IM GRANULOCYTES %) 0.4 0.0- 1.0 [facility] BrownwoodNeutrophils # (Auto)2018-09-18 20:55:00* Test Item Value Reference Range Interpretation Comments Neutrophils # (Auto) (test code = 751-8) 6.1 2.1-6.9 [facility] BrownwoodLymphocytes # (Auto)2018-09-18 20:55:00* Test Item Value Reference Range Interpretation Comments Lymphocytes # (Auto) (test code = 56006-0) 1.1 1.0-3.2 [facility]woodMonocytes # (Auto)2018-09-18 20:55:00* Test Item Value Reference Range Interpretation Comments Monocytes # (Auto) (test code = 742-7) 0.3 0.2-0.8 [facility]woodEosinophils # (Auto)2018-09-18 20:55:00* Test Item Value Reference Range Interpretation Comments Eosinophils # (Auto) (test code = 711-2) 0.4 0.0-0.4 [facility]woodBasophils # (Auto)2018-09-18 20:55:00* Test Item Value Reference Range Interpretation Comments Basophils # (Auto) (test code = 704-7) 0.0 0.0-0.1 [facility] BrownwoodAbsolute Immature Granulocyte (auto 2018-09-18 20:55:00* Test Item Value Reference Range Interpretation Comments Absolute Immature Granulocyte (auto (kwabena t code = Absolute Immature Granulocyte (auto) 0.03 0-0.1 [facility] DQEQN7919-29-73 18:35:00 [facility] [address], [place] [address] Patient Name: LOGAN MCCRACKEN MR #: [id number] : 1975 Age/Sex: 42/F Req #: [id number] Adm Physician: Ordered by: AURELIO ESTRELLA SEAMSTRESS FITTER Report #: [id number] Location: ER Room/Bed: Procedure: [id number] D X/CHEST 2 VIEWS Exam Date: Exam [...] ANUSHKA on 1835 COPY TO: AURELIO ESTRELLA SEAMSTRESS FITTER Urine PGP2843-67-01 18:24:00 * Test Item Value Reference Range Interpretation Comments Urine WBC (test code = 5821-4) 11-20 0-5 H [facility] BrownwoodUrine AFS8086-56-50 18:24:00* Test Item Value Reference Range Interpretation Comments Urine RBC (test code = 41916-9) 0-5 0-5 [facility]woodUrine Dlqkonch9509-95-88 18:24:00* Test Item Value Reference Range Interpretation Comments Urine Bacteria (test code = 70997-0) NONE NONE [facility]woodUrine Epithelial Plphc4724-11-94 18:24:00 * Test Item Value Reference Range Interpretation Comments Urine Epithelial Cells (test code = 22176-6) RARE NONE [facility]woodUrine Transitional Epithelial Cells 2018-09-18 18:24:00* Test Item Value Reference Range Interpretation Comments Urine Transitional Epithelial Cells (test code = 8249-5) FEW NONE H [facility]woodUrine Transitional Epithelial Cells 2018-09-18 18:24:00* Test Item Value Reference Range Interpretation Comments Urine Transitional Epithelial Cells (test code = 8249-5) FEW NONE H [facility]woodUrine Dnqsd7173-38-35 18:12:00* Test Item Value Reference Range Interpretation Comments Urine Color (test code = 5778-6) YELLOW YELLOW [facility]woodUrine Zmlwwar3712-94-48 18:12:00* Test Item Value Reference Range Interpretation Comments Urine Clarity (test code = 28452-7) CLEAR CLEAR [facility]woodUrine Specific Gctuoni7170-07-88 18:12:00 * Test Item Value Reference Range Interpretation Comments Urine Specific [employer] (test code = 5811-5) 1.005 1.010-1.02 5 L [facility] BrownwoodUrine eW6289-40-20 18:12:00* Test Item Value Reference Range Interpretation Comments Urine pH (test code = 24744-0) 7 5-7 [facility]woodUrine Leukocyte Hyxqcozq0092-48-97 18:12:00* Test Item Value Reference Range Interpretation Comments Urine Leukocyte Esterase (test code = 5799-2) TRACE NEGATIVE H [facility] BrownwoodUrine Cfivxcc4721-73-52 18:12:00* Test Item Value Reference Range Interpretation Comments Urine Nitrite (test code = 85873-1) POSITIVE NEGATIVE H [facility]woodUrine Vwvcobt0289-30-75 18:12:00* Test Item Value Reference Range Interpretation Comments Urine Protein (test code = 5804-0) NEGATIVE NEGATIVE [facility]woodUrine Glucose (UA)2018-09-18 18:12:00* Test Item Value Reference Range Interpretation Comments Urine Glucose (UA) (test code = 2349-9) NEGATIVE NEGATIVE [facility]woodUrine Inubwvl8614-37-84 18:12:00* Test Item Value Reference Range Interpretation Comments Urine Ketones (test code = 50159-3) NEGATIVE NEGATIVE [facility] Rdirgcdhwlne1200-29-03 18:12:00* Test Item Value Reference Range Interpretation Comments Urine Urobilinogen (test code = 02966-6) 0.2 0.2-1 [facility] Blhvzsfmq1125-66-00 18:12:00* Test Item Value Reference Range Interpretation Comments Urine Bilirubin (test code = 1978-6) NEGATIVE NEGATIVE [facility]woodU[facility] Ihbvq0292-01-47 18:12:00* Test Item Value Reference Range Interpretation Comments Urine Blood (test code = 51954-8) NEGATIVE NEGATIVE [facility]woodHEMATOLOGY2017-03-01 11:12:008[facility] XfsflveSDKXCNBLJI0562-88-91 11:12:00<2.9[facility] VeszkudZDCFQFROLV5763-16-24 11:09:0033.4[facility] HjctjnjYOCXBKDIWX7618-90-05 11:09:009.1[facility] LHIDBBZAOL4131-13-51 11:09:0015.9[facility] MquaqfzASMGSSTWQK6817-53-30 11:09:00 271[facility] PvfddfoSYKVNOFCDJ9254-13-75 11:09:006.0[facility]annHEMATOLOGY 2016-07-13 11:09:00* Test Item Value Reference Range Interpretation Comments MCH (test code = MCH) 30.8 pg 27.0-31.0 [facility] HpsukvwMPXGPQKCWJ4772-96-77 11:09:0035.7[facility]annHEMATOLOGY 2016-07-13 11:09:0092.3[facility] EwudpvrJRBUTAYIGT9713-80-52 11:09:0011.9[facility] VbtxjnuXJIPRYHGRA2993-06-27 11:09:003.86[facility] KzgiyhnRMSDVIWFDD0143-63-68 11:09:000.1[facility] YrzfdutXHIKVQLKLS6466-61-42 11:09:000.8[facility] SQRNLLHTFQ6031-21-72 11:09:008.8[facility] ThipymhHEKLCREGWM2523-76-80 11:09:008.6 [facility] CpvbtmtGSYGPCVQUL9070-95-84 11:09:0038.1[facility]annHEMATOLOGY 2016-07-13 11:09:0043.7[facility] TpazaaxBQJMKSDDMQ1912-86-25 11:09:000.5[facility] IxmgalnJFRCBSQAFS0232-77-40 11:09:000.5[facility] AefucraNQQMGGYTOS6682-16-86 11:09:002.6[facility] WlhfkeeFFUDRSVNDM6297-19-31 11:09:002.3[facility] HermannCHEM OYNBK0840-61-60 10:47:64767Nqkndulz HermannCHEM GSMRQ6372-41-80 10:47:75930 [facility]annCHEM MHHOA2245-61-01 10:47:0018[facility]annCHEM PANEL 2016-07-13 10:47:008.6[facility] HermannCHEM DBBHG8606-19-77 10:47:0086[facility] HermannCHEM NXXDJ6878-91-15 10:47:003.7[facility]annCHEM PCRNZ7989-86-25 10:47:0064[facility] HermannCHEM KIJLW6723-56-13 10:47:0029[facility] HermannCHEM XLCRU5202-94-86 10:47:006.7[facility]annCHEM IOEBD4657-73-33 10:47:0010.3 [facility]annCHEM YBPCD5463-54-37 10:47:00<0.1[facility]annCHEM PANEL 2016-07-13 10:47:0023[facility] HermannCHEM ANZPO9137-93-28 10:47:003.0[facility] HermannCHEM AULHC3545-12-26 10:47:001.2[facility]annCHEM EYUBY8631-39-29 10:47:72769Qdmycxdg HermannCHEM NUEIT3597-82-81 10:47:004.3[facility] HermannCHEM BHXUU5499-94-85 10:47:91529Lmqkdqoz HermannCHEM BOFQL5080-11-64 10:47:000.71 [facility]annCHEM HQKJN3485-48-19 10:47:0016[facility] HermannCHEM PANEL 2016-07-13 10:47:0087[facility]annURINE AND OWDPT0174-43-91 10:47:00Clear (07/13/16 4:47 AM)[facility] CUWFU9237-70-42 10:47:00Yellow *NA*(07/13/16 4:47 AM)[facility] ZDPQA6912-30-44 10:47:005.0 [facility] TQEDX6696-35-21 10:47:00Negative *NA*(07/13/16 4:47 AM) [facility] MVOCF4027-22-76 10:47:001[facility] SIMHH9726-47-82 10:47:00Small *ABN*(07/13/16 4:47 AM)[facility] JSTRA2814-65-02 10:47:00Negative (07/13/16 4:47 AM)[facility] STOOL 2016-07-13 10:47:005[facility] AND WOIUZ2758-14-54 10:47:003[facility] AND HHZGC9271-74-90 10:47:001.012[facility]UR[facility] AND STOOL 2016-07-13 10:47:00Negative (07/13/16 4:47 AM)[facility]ann[facility]INE EIAG6133-39-33 10:47:00Negative (07/13/16 4:47 AM)[facility] LwxarmxNZJUONYRLH2126-85-85 10:05:00 16.4[facility] RcefvetVZUHRZZSWV2736-33-55 10:05:008.6[facility]annHEMATOLOGY 2016-05-10 10:05:52645Eriakjfr NkmwlqhHIKUNYDTOA7125-16-40 10:05:0033.0[facility] WiiyyekMPJZVQWULJ4643-89-81 10:05:00* Test Item Value Reference Range Interpretation Comments MCH (test code = MCH) 29.9 pg 27.0-31.0 [facility] NhowxkcCKJSMPMGQB9161-75-25 10:05:0090.7[facility]annHEMATOLOGY 2016-05-10 10:05:0028.2[facility] NblihmsDNLRQWGHSR2480-81-83 10:05:009.3[facility] UcnwiflFSRXPZGXYA6486-56-79 10:05:003.10[facility] ColpwsiLCZRZWQAJU3983-46-75 10:05:0010.2[facility] AfkwordGGPWOGYCCY7745-70-23 10:05:001.2[facility] FCPYUEPJBB3268-79-49 10:05:000.7[facility] KmjkggtMLWKBGDZWX9266-53-81 10:05:002.0 [facility] XnynilvABRCUVJMTY4640-21-95 10:05:007.2[facility] HermannHEMATOLOGY 2016-05-10 10:05:0070.1[facility] NduqiwdESCWRBGPVC7264-18-95 10:05:008.1[facility] MyqvxgyRTLQOMXIBB4840-10-70 10:05:0019.9[facility] QhoewkgWFDAZNFDCM4003-85-43 10:05:000.8[facility] UrebwksBYIDXWMGTG1994-36-18 10:05:000.1[facility] JLVSEPZYPH3088-75-25 10:05:000.1[facility] HermannCHEM BRAEC6835-23-96 13:00:001.1 [facility]annCHEM SNUJC4727-26-04 13:00:002.6[facility] HermannCHEM PANEL 2016-05-05 13:00:0011.8[facility] HermannCHEM CBIBS5205-01-85 13:00:0012[facility] HermannCHEM DQZXM8673-66-28 13:00:51181Nrpmkstl HermannCHEM RAROP3096-09-17 13:00:008[facility] HermannCHEM ITGAT4018-88-06 13:00:000.1[facility] HermannCHEM HTNBE9174-86-36 13:00:0065[facility] HermannCHEM SGHHV5178-79-15 13:00:0043 [facility]annCHEM KFKXP7800-99-08 13:00:005.4[facility] HermannCHEM PANEL 2016-05-05 13:00:002.8[facility] HermannCHEM ITHRI9782-71-25 13:00:94310Irbfgvtf HermannCHEM JVJXX8735-39-18 13:00:0029[facility] HermannCHEM JKWMQ0511-64-57 13:00:008.0[facility] HermannCHEM ZLKKO9254-33-34 13:00:003.8[facility] HermannCHEM EOHFL5747-44-83 13:00:88475Utacnjmx HermannCHEM GFBJL4829-47-61 13:00:008 [facility]annCHEM CCUAJ0464-91-77 13:00:000.66[facility] HermannCHEM PANEL 2016-05-05 13:00:0076[facility] XdrheqxWFCEHJLQDI4183-30-09 13:00:0047.1[facility] MeugycyTHTHDFNMTL2422-09-32 13:00:0038.2[facility] SizbjmrEYLYIWDOVN3826-64-32 13:00:002.0[facility] JcbpgwyUONUIFTQRU5060-50-89 13:00:000.4[facility] GSBZCOAUBF6019-47-52 13:00:002.5[facility] SemvnzxAJXLSHCMMJ9511-92-65 13:00:000.4 [facility] YqveubsIZWZWQUFUJ6185-98-52 13:00:007.0[facility]annHEMATOLOGY 2016-05-05 13:00:000.9[facility] LabirswDYSWQULZII6927-44-95 13:00:006.8[facility] QprzminGVNPKDVHPH0138-24-98 13:00:00* Test Item Value Reference Range Interpretation Comments MCH (test code = MCH) 29.5 pg 27.0-31.0 [facility] YlmelqzTWOAKKQHZW3977-95-69 13:00:0024.6[facility] HermannHEMATOLOGY 2016-05-05 13:00:0090.3[facility] VomuycbYCZNBUTNOU5183-61-56 13:00:002.73[facility] AqxwccdTSYXVWEIYP4488-59-71 13:00:008.1[facility] LkzfjriIOATJBZILO2533-30-85 13:00:0015.8[facility] ShxrtloOIQPRWJTBB2065-30-35 13:00:0032.7[facility] IVVYGXKMAN2932-87-81 13:00:008.8[facility] MwzraocOXCHQQUDYR3617-86-40 13:00:35723 [facility] RulnwxqEOYHUWCMZT1094-78-96 13:00:005.3[facility]annHEMATOLOGY 2016-04-30 07:31:00* Test Item Value Reference Range Interpretation Comments PTT (test code = PTT) 28.5 s 22.9-35.8 [facility] JxzidbnBCRGFETMAW2078-03-76 07:31:000.93[facility]annHEMATOLOGY 2016-04-30 07:31:00* Test Item Value Reference Range Interpretation Comments PT (test code = PT) 12.7 s 12.0-14.7 [facility]annCHEM ETWUG5765-38-90 05:10:41473Fittwubx HermannCHEM PANEL 2016-04-30 05:10:76368Ptsxeiak HermannCHEM UYZVK9714-93-42 05:10:0064[facility] HermannCHEM ESEPS9564-18-86 05:10:00<0.1[facility] HermannCHEM VPXMH3862-37-51 05:10:0020[facility] HermannCHEM WLEGX2623-90-99 05:10:008.0[facility] HermannCHEM BKXAP3288-66-60 05:10:0028[facility] HermannCHEM QZBOX5234-79-27 05:10:68596 [facility]annCHEM VNDUC9747-09-88 05:10:004.1[facility] HermannCHEM PANEL 2016-04-30 05:10:0056[facility] HermannCHEM TVKYG6272-05-75 05:10:003.1[facility] HermannCHEM WVLYN3337-82-09 05:10:006.1[facility] HermannCHEM FTUZW0014-87-76 05:10:97793Qzbwgbbb HermannCHEM EEFPA8312-63-58 05:10:000.74[facility] HermannCHEM MFXVY0853-38-05 05:10:0019[facility] HermannCHEM VOPAR2559-93-60 05:10:0078 [facility]annCHEM TSMQW8949-81-92 05:10:0012.1[facility] HermannCHEM PANEL 2016-04-30 05:10:0026[facility] HermannCHEM EHYRP9423-73-22 05:10:003.0[facility] HermannCHEM PUMCN2099-52-92 05:10:001.0[facility] BektrmbLQAEBGUTEAXIZ2367-70-41 05:10:002[facility] FogkgrdEIKAJICHYV6710-80-66 05:10:000.1[facility] CVBAAVANCD0005-75-09 05:10:000.2[facility] OcebhchIOESGYWYBP7847-62-35 05:10:000.6 [facility] KvhsvyqPCPLQXXQUC4319-16-58 05:10:002.0[facility] HermannHEMATOLOGY 2016-04-30 05:10:0031.6[facility] YxoxpjkAKAQILBPHL2002-39-22 05:10:003.4[facility] XvjzdrkWYCAPNQVKD0547-76-45 05:10:009.3[facility] FluevkeWDFTUREHIR0016-18-55 05:10:003.5[facility] YetcqleDKIQACNQEH8730-51-24 05:10:001.2[facility] PSPWDNLXIN5485-36-22 05:10:0054.5[facility] PjckahvXGIOUUFATG2675-71-82 05:10:00 3.30[facility] XojvwggOGPEGFHHAN8070-18-57 05:10:006.4[facility]annHEMATOLOGY 2016-04-30 05:10:0029.9[facility] NhfpsdtKIKXQSKOWW9187-20-64 05:10:0090.6[facility] VaikespEFVRBBBOWZ8093-40-69 05:10:009.8[facility] QgncspyPKBUIOLPEO7900-02-45 05:10:008.5[facility] EtjtmlpGXKXAKNQNA0892-27-62 05:10:72110Gabzqhhb Shaun FLOCHPSUZA3715-37-84 05:10:0015.6[facility] JrhzlbvFSFAIBLPJL2402-16-38 05:10:00 32.9[facility] GcrfisfUQQEMTKSDT8195-95-17 05:10:00* Test Item Value Reference Range Interpretation Comments MCH (test code = MCH) 29.8 pg 27.0-31.0 [facility] ZEYBX6792-33-12 02:56:31Trace *ABN*(04/29/16 8:56 PM) [facility] FZNCA3192-97-37 02:56:311[facility]UR[facility] RFFNV7119-27-54 02:56:315[facility] CGIWZ0145-28-85 02:56:317.0 [facility] POWUD1829-52-00 02:56:311.014[facility]UR[facility] YLZES2948-98-36 02:56:31Marked *ABN*(04/29/16 8:56 PM)[facility] CYNKH7097-66-48 02:56:31Yellow *NA*(04/29/16 8:56 PM)[facility] EGKYG6460-38-91 02:56:31Negative (04/29/16 8:56 PM)[facility] YCIEJ5563-13-27 02:56:31Negative (04/29/16 8:56 PM)[facility] YPBJI3945-32-03 02:56:31Negative *NA*(04/29/16 8:56 PM)[facility] HermannCHEM JSBYC0033-72-69 03:18:0090[facility] HermannCHEM TIIYA7275-53-60 03:18:009[facility] HermannCHEM FHWOU0651-61-03 03:18:0028[facility]annCHEM UGAQL9530-81-20 03:18:0060[facility] HermannCHEM ECVQK1579-09-67 03:18:000.2[facility]annCHEM MXVDY0220-45-32 03:18:008.8[facility] HermannCHEM XJWZY3315-02-45 03:18:0027 [facility]annCHEM VGVPE4529-86-14 03:18:80298Iadhtaad HermannCHEM PANEL 2016-04-12 03:18:000.82[facility] HermannCHEM GSWJP9622-81-67 03:18:0096[facility]annCHEM DSUTD9338-03-30 03:18:0017[facility]annCHEM BLEMW0234-44-02 03:18:65140Rflsqjpu HermannCHEM MKHFX4132-71-21 03:18:004.0[facility] HermannCHEM QLZKJ7282-23-24 03:18:006.7[facility]annCHEM YWMJJ6824-65-68 03:18:003.6 [facility]annCHEM DALKR3524-31-21 03:18:001.2[facility] HermannCHEM PANEL 2016-04-12 03:18:0021[facility] HermannCHEM WWIEA3553-22-35 03:18:003.1[facility] HermannCHEM PWEIY6674-62-97 03:18:0013.0[facility] SaoswstLXPZWPSOSZIUD8196-00-09 03:18:00Negative *NA*(04/11/16 9:18 PM)[facility] EzsnhcmBSRNRPCDHZ2874-27-68 03:18:00* Test Item Value Reference Range Interpretation Comments MCH (test code = MCH) 29.6 pg 27.0-31.0 [facility] BwdvmcpKBJFWJGZXR9300-39-89 03:18:0032.9[facility]annHEMATOLOGY 2016-04-12 03:18:0089.9[facility] TcwrnssMCOMSVPWQQ4512-24-41 03:18:0030.8[facility] BoptxftKXAYITKQKQ8101-85-27 03:18:10235Sqaqjxgh DrcusvzKZVWTDQMEI3735-65-59 03:18:008.7[facility] RcgzyqhLSOLQXPUYO1534-27-84 03:18:0015.4[facility] [place] WAZHQHSBOF6697-07-71 03:18:003.43[facility] PjzxvurAVSZEYLICV2476-35-05 03:18:00 7.1[facility] YodacczFSAGJFRFIM2114-93-72 03:18:0010.1[facility]annHEMATOLOGY 2016-04-12 03:18:00* Test Item Value Reference Range Interpretation Comments PTT (test code = PTT) 23.9 s 22.9-35.8 [facility] HgrughwCRDYQOPAQX5940-89-32 03:18:000.93[facility]annHEMATOLOGY 2016-04-12 03:18:00* Test Item Value Reference Range Interpretation Comments PT (test code = PT) 12.7 s 12.0-14.7 [facility] YovhwixWAVQJTYQMN9119-20-40 03:18:000.5[facility]annHEMATOLOGY 2016-04-12 03:18:000.1[facility] MzmxwixNNUGNXMUVH1305-76-54 03:18:001.1[facility] RsgoirvSJMHPCTMLG8199-29-88 03:18:004.3[facility] ZrvrkyzYBGMCRKIKP8527-07-06 03:18:002.1[facility] HxekwnaRKYOLSWNXW2606-36-85 03:18:000.6[facility] AWDOTFYFQF0265-51-53 03:18:007.4[facility] PkymiqzZHEZFGCQAR9499-65-51 03:18:00 29.9[facility] AqptsqfLMSSCJBZYD5574-09-75 03:18:0061.0[facility] AND JNYQK3675-19-81 03:04:009[facility] JTITS9556-25-42 03:04:0060 [facility] KKYZE9634-81-38 03:04:002[facility] AND YKTWX6995-84-01 03:04:001.012[facility] GDDSK5487-28-98 03:04:00 Clear (04/11/16 9:04 PM)[facility] DDHGY4466-25-23 03:04:007.0 [facility] DSHMA1299-91-77 03:04:00Negative *NA*(04/11/16 9:04 PM)[facility] YEYYI7493-23-87 03:04:00Small *ABN*(04/11/16 9:04 PM)[facility] BURYJ4903-84-81 03:04:00Negative (04/11/16 9:04 PM) [facility] VALRQ6028-95-28 03:04:00Negative (04/11/16 9:04 PM) [facility] ZSXWT8875-46-47 03:04:008[facility] PSANQ6960-18-05 06:00:00Negative (04/06/16 12:00 AM)[facility] KGEHE1807-95-85 06:00:00Negative (04/06/16 12:00 AM)[facility] JKDBL8793-62-14 06:00:00Negative *NA*(04/06/16 12:00 AM)[facility] IVBJR1273-33-80 06:00:00<1[facility] GCQSU4768-24-43 06:00:00 <1[facility] XMXVP3108-62-30 06:00:00Trace *ABN*(04/06/16 12:00 AM)[facility] CKQKX9686-32-38 06:00:008.0[facility] FAWWJ7138-87-98 06:00:001.003[facility] CFFIM3837-46-06 06:00:00Clear (04/06/16 12:00 AM)[facility]CHE[facility] DCHRS3772-13-43 02:21:00 147[facility]CHE[facility] PJNYC7271-97-29 02:21:0037[facility]CHE[facility] PANEL 2016-04-06 02:21:003.4[facility]CHE[facility] RMESH2040-61-10 02:21:001.2[facility]CHE[facility] TEJUX3396-03-85 02:21:0021[facility] GZSUU4115-50-42 02:21:0011.0[facility]annCHE[facility] QWYSE4076-68-84 02:21:94247Abzbfimg HermannCHEM BDTJX4156-37-79 02:21:007.6[facility]annCHE[facility] MVDAW2017-28-66 02:21:004.2 [facility] HRKGX6585-54-55 02:21:0030[facility]CHE[facility] PANEL 2016-04-06 02:21:0010[facility]annCHE[facility] HONTO0769-56-15 02:21:009.1[facility]CHE[facility] TUKMC2339-99-20 02:21:0075[facility] BCFFH3027-45-42 02:21:000.3[facility]annCHE[facility] POARA6787-65-11 02:21:07365Cwvbztoo HermannCHEM PIBOC1950-33-38 02:21:004.0[facility]CHE[facility] MJSRT1223-90-83 02:21:0030 [facility] IUOCO5520-03-68 02:21:27657Oetukqvx HermannCHEM PANEL 2016-04-06 02:21:0013[facility] BPMIG0689-66-26 02:21:000.63[facility]CHE[facility] CDYQO9952-55-52 02:21:0093[facility]CHE[facility] IPJAW6908-57-60 02:21:003.2[facility] BYKFR0572-96-63 02:21:002.7[facility] CWTXFJCAEIOVD4013-73-20 02:21:00Negative *NA*(04/05/16 8:21 PM)[facility] FHATEECBGJ4068-52-32 02:21:0013.3[facility] DzbefobYNALVRJKIJ6658-92-15 02:21:00 82.4[facility] SrinaabADOTWYVCNV9845-45-23 02:21:008.6[facility]annHEMATOLOGY 2016-04-06 02:21:000.2[facility] ZviarurRDKFDHPUXV8229-29-53 02:21:004.1[facility] McvwlosGIXNJBGYHA3844-84-75 02:21:000.4[facility] RwmpgqiJPMNIHWXZH1023-50-00 02:21:001.4[facility] KpapgvyIBQOSHSYJN2262-52-44 02:21:75769Ckporslm Shaun ENLUIEQHKJ3673-95-26 02:21:008.8[facility] UrcxmrzDOGCKXZINM7532-85-69 02:21:00 15.9[facility] UhwvblaUHXJVVOSGG2349-64-73 02:21:00* Test Item Value Reference Range Interpretation Comments MCH (test code = MCH) 29.4 pg 27.0-31.0 [facility] DlinqmiKPFSMABIYZ0265-50-15 02:21:0032.4[facility]annHEMATOLOGY 2016-04-06 02:21:0033.5[facility] LehnfcgLWIQXNEJUH9772-17-37 02:21:0090.6[facility] CroxcbxWNAKXXJBZR1822-59-55 02:21:0010.9[facility] EnhcdcjAJYRHUJKSH0129-18-98 02:21:0010.4[facility] CyxoyrzPLQRLTMUVE3655-27-23 02:21:003.70[facility] URINE AND DSEDQ3695-08-82 01:29:004[facility] QCTYT6803-44-81 01:29:20445Pmaughze HermannURINE AND CKDQO0940-19-17 01:29:0017[facility] URINE AND BHUXH4067-11-24 01:29:001.011[facility] KAKBD7250-81-56 01:29:00Slight *ABN*(03/02/16 8:29 PM)[facility] UXOKL2424-79-86 01:29:00Negative (03/02/16 8:29 PM)[facility] DEJDC3223-70-99 01:29:00Negative *NA*(03/02/16 8:29 PM)[facility] GMWRN4325-86-88 01:29:005.0[facility] WWPVE2097-35-73 01:29:00Large *ABN*(03/02/16 8:29 PM)[facility] PHUWZ0375-61-75 01:29:00 Negative (03/02/16 8:29 PM)[facility]annCHE[facility] PHPKD0974-26-99 00:34:49137 [facility] HGXGV4495-82-07 00:34:0023[facility]annCHEM PANEL 2016-03-03 00:34:007.1[facility]annCHE[facility] HRLVW3645-86-14 00:34:008.8[facility]annCHE[facility] KJCEX6575-97-36 00:34:36316Hkdrocgs HermannCHEM CIPAR7946-82-24 00:34:000.61[facility]annCHE[facility] FSCCM0994-12-05 00:34:24433Meqttvzf HermannCHEM WYFUA0425-44-70 00:34:004.0[facility]annCHE[facility] KGQMH1280-28-41 00:34:0017 [facility] LSOCM9494-87-77 00:34:0084[facility]CHE[facility] PANEL 2016-03-03 00:34:00<0.1[facility]CHE[facility] TXXJH1339-67-99 00:34:001.1[facility]annCHE[facility] VYLOV4814-18-80 00:34:0035[facility]annCHE[facility] NKCJF5673-54-19 00:34:003.7[facility]annCHE[facility] GOEEE8218-60-39 00:34:0013.0[facility]annCHE[facility] RVRFX1955-84-63 00:34:003.4[facility]annCHE[facility] OGEYS2155-29-26 00:34:0028 [facility]CHE[facility] YDNOE1889-76-80 00:34:0013[facility]annCHEM PANEL 2016-03-03 00:34:0099[facility]CHE[facility] ZMPMT2850-35-45 00:34:0046[facility]annCHE[facility] CXMBA1740-45-94 00:34:93849Bcuqptdv HermannCHEM ZATKB8882-77-89 00:34:000.1[facility] BhhbhzwZXCQWVEKIH6799-65-55 00:34:68103Imuugzvr Shaun XMZEQBLBTE6519-96-66 00:34:009.3[facility] NgygualANEFQVHQMQ8857-69-49 00:34:00 15.1[facility] XvlmjdxBRVVZKQDZT0893-86-25 00:34:006.1[facility]annHEMATOLOGY 2016-03-03 00:34:003.68[facility] JxxymfvWUKCDQTPWH8267-74-55 00:34:0033.8[facility] JcplrixBWOPMMVNGO3808-14-75 00:34:0091.6[facility] VvjzdykOZMENDTFQN0241-10-57 00:34:0011.2[facility] RcktmgoYKCYZCVMSU0930-38-71 00:34:0033.3[facility] XLJUKLWMMM6455-53-51 00:34:00* Test Item Value Reference Range Interpretation Comments MCH (test code = MCH) 30.5 pg 27.0-31.0 [facility] GmmmwvsBRMLGSKDHN8536-22-90 00:34:000.5[facility]annHEMATOLOGY 2016-03-03 00:34:000.2[facility] IohnzlzTPYHQUTRQE9352-54-69 00:34:000.1[facility] VkqdvidBRAVBDBSQJ7115-24-91 00:34:002.7[facility] FacwdidWGPSPMDZBI7613-22-25 00:34:000.9[facility] HfvijoqRUJGADRXTQ5109-23-78 00:34:002.6[facility] BVZQVGMBOU4872-04-95 00:34:008.3[facility] WwivqccYYLGLTWVUZ7862-62-36 00:34:00 43.4[facility] WmfkvdgWSGYBTTBMN1634-07-13 00:34:003.5[facility]annHEMATOLOGY 2016-03-03 00:34:0043.9[facility] NbyugzkYJBIEZGFYPAR0126-04-72 10:51:44027 [facility] VgwzyqxRNHKSMQPMEBB8555-74-05 10:51:25925Phsuiejn HermannELECTROLYTES 2014-09-26 10:51:003.5[facility] OhzkgswNAQBFVLRIIRT5459-77-39 10:51:15561Bucovfoe KilmznzKCLWQTVCBZVB2005-09-41 10:51:0082[facility] UzfdfvxPZMPRZMJKYLG2937-31-31 10:51:0027[facility] SwmyhbmKOOOSSTCWUCO5069-05-87 10:51:000.7[facility] ZDQKJUSTNDIW2697-44-20 10:51:0012.5[facility] CddwikuBMGGTZGHJJNH1943-68-13 10:51:007.9[facility] TkqywfjWFXXQANOOVIX2760-28-47 10:51:006[facility] FGNWUPFBVRBB5019-98-86 15:02:31441Tmjwqzqd TonpkbiRDFQGCBHWMDN2635-52-67 15:02:82750Vndmgvqt YcddbxwYSJGGPPTOQQD6787-38-35 15:02:004.1[facility] YACNSPXLRDOH7274-56-54 15:02:0094[facility] HndqmqbJKZWUJWYYWJC4860-98-53 15:02:00 29[facility] PzfaamnBIJCSTFFMQJS7147-31-64 15:02:000.3[facility] HermannELECTROLYTES 2014-09-23 15:02:33779Gnjfeuzj NzridumVSZHDARQERXR5667-86-69 15:02:003.4[facility] PnzvebyFUUSFYREQAWN3681-09-79 15:02:10834Lwbafcpp QmpiyytJGIKZPGDAPIV0673-65-17 15:02:005.6[facility] SucjlmwYCCIBYJNVBWZ6129-57-03 15:02:008.3[facility] AZHXFFJJRVLA9729-06-28 15:02:004[facility] GwzbtmnCMOEZAISYBIH9555-48-92 15:02:00 62[facility] LfoolaaTNRQVZSMIDCV5605-24-14 15:02:000.8[facility] HermannELECTROLYTES 2014-09-23 15:02:0029[facility] QbhvshcTASBKJFTLIEU8258-00-88 15:02:0012.1[facility] DvuzmdtOFUSXCFOVMPX5687-70-43 15:02:001.5[facility] MwohcmpZVAGHVUSVTWR5005-36-51 15:02:005[facility] BigwpfcWTWXFUSQOAAN9147-14-73 15:02:002.2[facility] BRATFNFVOG5858-84-97 15:02:000.7[facility] OdvuvoqXNPBNEDZNR0369-58-38 15:02:000.3 [facility] JnzkckgEKYAAMGPBY2594-08-67 15:02:001.5[facility]annHEMATOLOGY 2014-09-23 15:02:000.9[facility] GtxsoxcOBLHULVFTE9122-37-38 15:02:0017.0[facility] LkqvonsJASXGXXJGO7333-43-72 15:02:001.4[facility] FwzskbxQTTFIWCFTQ7291-88-49 15:02:007.9[facility] LmknrvzUNMPGUFYXK0711-52-36 15:02:0038.1[facility] KBKESCOLFY0742-09-44 15:02:0036.1[facility] QwszaiuSSZAWQBWGO1646-54-19 15:02:00* Test Item Value Reference Range Interpretation Comments MCH (test code = MCH) 32.1 pg 27.0-31.0 [facility] MywrhkzNESHTHLLJE6867-74-87 15:02:0033.5[facility]annHEMATOLOGY 2014-09-23 15:02:0095.9[facility] KqzsbmbJGRUVJKRUZ4801-53-84 15:02:49093Xkbvcjgh YphhmvkGVOTQIYXUW6629-51-88 15:02:0013.5[facility] GuthdinJYHVGROBHV7474-99-33 15:02:0036.0[facility] GxtdszvYFMFVTQCFV4364-82-32 15:02:0012.0[facility] PKKEWHVELV7554-75-47 15:02:003.75[facility] EjhwqaiSTGBCURYAK5039-75-80 15:02:00 10.2[facility] UfxvklyGZYRNWTPMB6498-82-15 15:02:003.8[facility] HermannELECTROLYTES 2014-09-19 09:38:0012.6[facility] QyecxcoLXMBZCKNZXJU3601-79-05 09:38:001.3 [facility] TgbhtgbOUJTWEQCEVRW6899-37-91 09:38:004[facility]annELECTROLYTES 2014-09-19 09:38:002.2[facility] LovotaiTFMYNYQBCEHF4728-51-10 09:38:003.6[facility] LrlmmlfZBRFBOGGEIIV7919-80-83 09:38:77023Wxdbtopk ToixqeeLVCFYHBQRTIK8805-59-33 09:38:008.0[facility] CkfyubxPMXMQPXEVLVB0462-48-21 09:38:000.8[facility] PZBAWZWDTEDA3081-15-36 09:38:51150Hbtkhajn VlvmjpuQJDXIHBVDWQD9405-23-18 09:38:0094[facility] HwnkphpARBDJLINIKJX6648-45-45 09:38:000.3[facility] HZUZHMCEERFI8538-43-23 09:38:16054Gqzzgpto HtwvxknRHUQFFYYFTDB5929-10-65 09:38:0032[facility] PukikzjQXNMFUFCLWIR8790-19-63 09:38:005.1[facility] FDDHNEFJEVOM9660-31-45 09:38:002.9[facility] RvuseymVBIDALVFGAHY4061-76-91 09:38:0024[facility] ZbufxtvNOYLJHQJEREJ4143-74-06 09:38:75142Zpuzpzqh Shaun EUKAQOODEPNI6869-24-41 09:38:0097[facility] ErtsbdyMQHQPXJUHZWT2030-50-01 09:38:00 3[facility] BkgrykwMZMTGTNQUH8425-35-86 09:38:0011.0[facility]annHEMATOLOGY 2014-09-19 09:38:003.41[facility] ElybernHIPIAZXRIR9879-82-32 09:38:0096.2[facility] ScgrsrwUDNYKXQMHR5364-74-52 09:38:0032.8[facility] YrsjskzESQYNMDURW4388-29-71 09:38:00* Test Item Value Reference Range Interpretation Comments MCH (test code = MCH) 32.4 pg 27.0-31.0 [facility] EwlecboCLBBTXTXLP7176-63-08 09:38:0014.0[facility]annHEMATOLOGY 2014-09-19 09:38:0010.5[facility] SuzxselBHOSXQWKTS5500-56-10 09:38:0033.7[facility] UkfwehpPGUAUKVSMH6130-17-90 09:38:89941Rvotgivc IdagkemTUISSBLKZU5849-81-52 09:38:004.1[facility] ZplacshMEJWKEXHMI3148-86-27 09:38:0051.5[facility] UZHVSHUGWC7104-91-33 09:38:0027.2[facility] AgqsstkWQYVMGTIMR0669-76-98 09:38:00 0.6[facility] HnaezutTQCWLHLVRN3751-46-65 09:38:0013.5[facility]annHEMATOLOGY 2014-09-19 09:38:002.1[facility] BkzxsisPISMMMITYL8405-11-26 09:38:000.3[facility] JrjqnopVPGYTYISIW8287-63-39 09:38:000.6[facility] VhkmhmgYWAIGKQLRQ7296-40-24 09:38:007.2[facility] AisxmrtEMWJXRHZWA5439-72-58 09:38:001.1[facility]annCHEM NQYGE0111-08-91 19:56:003.4[facility]annCHEM FVPLP5858-69-70 19:56:002.4 [facility]annCHEM KZRKY0788-99-18 19:56:001.4[facility]annCHEM PANEL 2014-09-18 19:56:04703Jbjnkmwe HermannCHEM HHQKJ6405-94-48 19:56:0051[facility]annCHEM QFQBW3997-16-44 19:56:005.8[facility]annCHEM PVBPL7379-64-62 19:56:97490Ckdplylv HermannCHEM LRNJH7543-69-06 19:56:000.2[facility]annCHEM JEXRV6939-13-26 19:56:005[facility] DttbxrmPTGIJNLGYE9715-37-15 10:00:007.1 [facility] CawfapaUXDBGCFJNU3692-35-99 10:00:0016.2[facility]annHEMATOLOGY 2014-09-16 10:00:000.3[facility] TflzowmCFPSBQHBUL0153-82-88 10:00:000.8[facility] NliqxmkONZXWVFTRR8830-52-85 10:00:0015.0[facility] EkltfqiENOPSAUGNQ3933-44-63 10:00:0060.9[facility] KglbzzyAXCBBPACVP2770-85-56 10:00:002.5[facility] OQKVEEGRKN2458-13-40 10:00:000.7[facility] VnsdpinIHTJNLRFCT3827-15-28 10:00:000.6 [facility] BtdhoveYUFWOEEKKP6938-33-37 10:00:00Normal (09/16/14 5:00 AM)[facility] OndrnbpZYNROVREFJ6243-69-99 10:00:00Normal (09/16/14 5:00 AM)[facility] WRVDXLFAAG8497-22-04 10:00:93828Yeyxytgu BqwpdjhFZPUEQXAUP7988-98-67 10:00:00 13.9[facility] MynmgpdYSEBWGLRGR8226-25-17 10:00:003.42[facility]annHEMATOLOGY 2014-09-16 10:00:0032.9[facility] RjrovziRHWBYEMBPA0784-23-85 10:00:0011.1[facility] EgwqltnJFOBYEMDIM3790-69-00 10:00:00* Test Item Value Reference Range Interpretation Comments MCH (test code = MCH) 32.3 pg 27.0-31.0 [facility] OuzacqbSXMYWBZJEW2217-95-64 10:00:0033.6[facility]annHEMATOLOGY 2014-09-16 10:00:0096.2[facility] FrwtstoFTKIRWKAQN0243-36-38 10:00:0010.9[facility] FstjosrIWCSMUTWCR0965-05-70 10:00:004.2[facility] HermannCHEM JACTO0470-37-94 11:17:19941Ammjidbu HermannCHEM NTVME0915-56-25 11:12:001.8[facility]annCHEM KSZSU8424-96-71 11:12:003.9[facility] IkdrvjwVPKYZUEHKZ3926-26-50 11:12:00* Test Item Value Reference Range Interpretation Comments PTT (test code = PTT) 31.6 s 22.9-35.8 [facility] PzlzzrzBVLDMNTHOO6173-93-23 11:12:00* Test Item Value Reference Range Interpretation Comments PT (test code = PT) 14.2 s 12.0-14.7 [facility] ZathvcyDPTFKWMGOW9300-15-94 11:12:001.09[facility] HermannCARDIAC ENZYMES 2014-09-14 04:03:40085Aonzcxvh HermannCHEM TSWYN9744-69-28 04:03:001.9[facility]annCHEM IEUSC0222-50-52 04:03:17908Uizrhjgq HermannCHEM LRZHE0807-32-21 04:03:003.0[facility]annCHEM LPJKQ6420-41-10 04:03:0043[facility] SCHJEKZAGK8139-50-32 04:03:000.97[facility] YoflxoxDAYCXKNRVJ5613-40-65 04:03:00* Test Item Value Reference Range Interpretation Comments PT (test code = PT) 12.9 s 12.0-14.7 [facility] BcwvnlxUOZARVCOKS9432-88-06 04:03:00* Test Item Value Reference Range Interpretation Comments PTT (test code = PTT) 33.0 s 22.9-35.8 [facility] TJBOY7559-89-61 04:03:00Negative (09/13/14 11:03 PM) [facility] VLSNE4367-29-37 04:03:00Negative (09/13/14 11:03 PM) [facility] JXCYL3866-81-11 04:03:00Negative *NA*(09/13/14 11:03 PM) [facility] DBTLZ2087-51-47 04:03:00Negative (09/13/14 11:03 PM) [facility] DJELY9854-52-54 04:03:005.0[facility] AND FKEHH9328-87-58 04:03:001.020[facility] UGKMK9645-13-91 04:03:00 Clear (09/13/14 11:03 PM)[facility] NwldzopBOGISFYNSJFIE3113-40-40 13:31:464[facility]annCHEM RATNX8579-35-14 13:31:0014[facility]annCHEM ZKAYS3993-81-83 13:31:001.1[facility]annCHEM CXMLI0977-56-42 13:31:003.0[facility]annCHEM MYRLS0411-03-46 13:31:007.9[facility]annCHEM WFALV5684-22-29 13:31:0094 [facility]annCHEM KBCVQ6297-99-04 13:31:00<0.1[facility]annCHEM PANEL 2013-12-16 13:31:80796Ezjovybz HermannCHEM PZCOI0221-55-04 13:31:006.4[facility]annCHEM YSWJD7414-74-02 13:31:003.4[facility]annCHEM CUEVA8174-81-68 13:31:000.8[facility]annCHEM LSESC3823-18-33 13:31:0011[facility]annCHEM XHKFL0967-52-39 13:31:33647Aguifyol HermannCHEM NZDDD2947-16-22 13:31:42823 [facility]annCHEM EWPJA8492-15-51 13:31:44521Kjuuzanr HermannCHEM PANEL 2013-12-16 13:31:18583Ztckrswi HermannCHEM OTGZD9289-33-82 13:31:0093[facility]annCHEM AWTQX8422-07-94 13:31:005.9[facility]annCHEM QQYZI2287-36-48 13:31:009.5[facility]annCHEM CVODC4116-11-48 13:31:0030[facility] NFEZCCYMZI1579-63-11 13:31:001.4[facility] BmnxfvxHKMLAMRFRO3288-51-83 13:31:002.1 [facility] AcbccjkGABTKJMWNQ4678-63-60 13:31:000.3[facility] HermannHEMATOLOGY 2013-12-16 13:31:000.4[facility] CrkqfpyEHKYFBDVQM7328-11-73 13:31:0033.9[facility] ZbktlogWCUVFYHVKT3402-26-72 13:31:008.6[facility] MtupbgdWTVEIHDHOX6285-96-68 13:31:006.6[facility] JvfnzslQYPZVCWONP9004-73-50 13:31:000.9[facility] ETEFEXNGMB4610-87-97 13:31:0050.0[facility] PhtpfonLDTIHXOCNJ6674-06-38 13:31:00 10.1[facility] LusxifaRIMDRPUGPO0054-89-51 13:31:0014.3[facility] HermannHEMATOLOGY 2013-12-16 13:31:96070Ipvdhtns MhilgcvEINNWVIPIF0829-36-93 13:31:0098.1[facility] KqozgesTFZXLLEYPM6916-16-38 13:31:00* Test Item Value Reference Range Interpretation Comments MCH (test code = MCH) 32.5 pg 27.0-31.0 [facility] EdualhiGFMZOUAGOE0097-77-42 13:31:0033.1[facility] HermannHEMATOLOGY 2013-12-16 13:31:0033.6[facility] MtwclizWBVLPYZJIU9024-69-86 13:31:0011.1[facility] ZfobdgtSLCISUULWA5273-05-82 13:31:003.43[facility] OjmkzstIVYIQEFDVA9282-28-10 13:31:004.2[facility] HermannCHEM VLXWV7304-96-05 13:54:0094[facility] HermannCHEM GHGIJ4407-49-00 13:54:000.2[facility] HermannCHEM VPBFR1263-10-83 13:54:61191 [facility]annCHEM JVERA6802-16-90 13:54:006.7[facility] HermannCHEM PANEL 2013-12-15 13:54:0030[facility] HermannCHEM HVNTO3889-70-80 13:54:009.2[facility] HermannCHEM HRRXS3229-51-01 13:54:003.7[facility] HermannCHEM LKHZH9530-01-51 13:54:59165Fphrkswv HermannCHEM BHJAP3943-86-52 13:54:30131Qzyjfdgc HermannCHEM UXVVU7208-56-72 13:54:91393Pblvmzzs HermannCHEM ENYOC9971-61-73 13:54:005.2 [facility]annCHEM ILFVL2760-54-15 13:54:0013[facility]annCHEM PANEL 2013-12-15 13:54:0077[facility] HermannCHEM OPFGT5341-20-15 13:54:06327Akkpankz HermannCHEM CCHLX3148-97-16 13:54:000.8[facility] HermannCHEM AOBWU8475-60-88 13:54:0016[facility] HermannCHEM OMEHN7599-19-05 13:54:0011.2[facility] HermannCHEM HDNSP1909-90-73 13:54:001.2[facility] HermannCHEM MSKGV7056-72-59 13:54:003.0 [facility] CaovdbuWRVRYDBSZZ9267-46-96 13:54:000.2[facility] HermannHEMATOLOGY 2013-12-15 13:54:000.3[facility] DheaudlWGSWKACNAQ8018-87-01 13:54:001.8[facility] RompowmOVACFNRFOA7181-70-22 13:54:000.9[facility] EhxoducHPHHQASDIL4942-88-28 13:54:000.9[facility] QenhplaESELYPKAXH0164-37-43 13:54:006.9[facility] CUFKYGBNEA8083-81-33 13:54:0056.8[facility] WuujyyyCDQWNXHCOI5825-01-52 13:54:00 8.3[facility] AjmacgeYKYMPPDIMR6898-71-31 13:54:0027.1[facility] HermannHEMATOLOGY 2013-12-15 13:54:0011.7[facility] HvowxypHBLRDWWAWU1188-29-42 13:54:0035.0[facility] DgmpkoeGLKYYWWJCA4793-49-17 13:54:17261Tztsuvae AxcvjsqJAZAZBBBTY5910-97-20 13:54:0013.9[facility] CdoplivVIOKQTROMA2686-75-10 13:54:0033.3[facility] XWSAQCTTLQ6551-31-17 13:54:0010.0[facility] UpvstepZYPFBVYNXX5287-27-45 13:54:00* Test Item Value Reference Range Interpretation Comments MCH (test code = MCH) 32.7 pg 27.0-31.0 [facility] NqaxjfzUAXUBKWAKI7368-41-14 13:54:0098.1[facility] HermannHEMATOLOGY 2013-12-15 13:54:003.2[facility] AjheugzBJQPQDSHRC9412-20-41 13:54:003.56[facility] BgvejhuRNYNFCTXFS5362-76-39 10:17:0098.3[facility] LmagdenNRGGJOHYPL4049-46-59 10:17:00* Test Item Value Reference Range Interpretation Comments MCH (test code = MCH) 32.0 pg 27.0-31.0 [facility] WbpinpqWQWEYBKTUF8734-24-55 10:17:003.70[facility] HermannHEMATOLOGY 2013-12-14 10:17:0036.4[facility] XqnnnihUVPHTKYTQZ4874-81-99 10:17:0011.9[facility] FewabkrMZDFDIHKXN6122-23-20 10:17:005.0[facility] PqpcyvrXSTUWJLFTN9090-48-91 10:17:0032.6[facility] TzklvgzORHJJCCLBY6907-35-37 10:17:0014.1[facility] EWQKYQBUAS6342-52-52 10:17:0010.5[facility] LhihgxkSBVHEGOPOY4522-88-51 10:17:00 219[facility] PftluinEQECXBWHGT5895-67-53 10:17:000.3[facility] HermannHEMATOLOGY 2013-12-14 10:17:000.8[facility] WpbnzbbWJKHWZGLYZ2040-53-60 10:17:003.2[facility] PnocrmmSLEMIKBFKE5989-62-49 10:17:001.3[facility] YvxahqkFISPFDIGFU0187-20-49 10:17:000.2[facility] UutuwuaJBTNUJGWDF0069-19-91 10:17:00Normal (12/14/13 5:17 AM) [facility] UjljigvWIZPRFQPWN9533-67-46 10:17:0025.5[facility] HermannHEMATOLOGY 2013-12-14 10:17:004.1[facility] CwarmnlEIRRSBPMPB2816-51-20 10:17:006.5[facility] KdbdjvjZKRJJWBVVL1707-92-84 10:17:0063.1[facility] NjxngitHXGIRATBZN7254-81-68 10:17:00Normal (12/14/13 5:17 AM)[facility]annCHEM INXOM5436-03-85 10:18:77687 [facility]annCHEM SXALW9727-09-73 10:18:000.2[facility] HermannCHEM PANEL 2013-12-13 10:18:97851Hfifyezn HermannCHEM CMBKN6808-55-07 10:18:002.9[facility]annCHEM RJHTR2653-70-14 10:18:03596Fdhxdloa HermannCHEM LBOUI5546-59-42 10:18:0011[facility]annCHEM VDKNP5933-55-45 10:18:000.7[facility]annCHEM MSWWD0805-07-53 10:18:0027[facility]annCHEM YMMHB7890-08-76 10:18:008.2 [facility]annCHEM UEZWE2015-11-82 10:18:005.2[facility]annCHEM PANEL 2013-12-13 10:18:0065[facility]annCHEM VSIGF1777-66-65 10:18:93498Xaglxdwb HermannCHEM RGSWR4020-49-07 10:18:004.6[facility]annCHEM EHKHN6272-36-32 10:18:83178Inbmbtcz HermannCHEM HJBJR5173-72-05 10:18:0082[facility]annCHEM SKYKI1848-19-16 10:18:0016[facility]annCHEM BDUMA5109-73-75 10:18:0011.6 [facility]annCHEM EIXVN6912-36-36 10:18:002.3[facility]annCHEM PANEL 2013-12-13 10:18:001.3[facility] HermannANEMIA QTQYF3377-22-89 10:10:0010.8 [facility]annANEMIA EWRPN2407-74-91 10:10:87442Sqtuufgr HermannANEMIA STUDY 2013-12-13 10:10:71834Vxjijalz HermannANEMIA YFCYI7833-26-25 10:10:13885Rhcigmnt HermannANEMIA MJULZ8314-58-56 10:10:46045Zjqxhnmc HermannANEMIA OIWMN8098-14-13 10:10:0030[facility]annANEMIA LUNGK2192-89-80 10:10:0025[facility] [place] ANEMIA PMMLE6993-16-18 08:35:0031[facility] PukwvnuGUONINBPXV5096-83-13 08:35:00 0.95[facility] WumjbkqHOQMDKSDVO8259-23-19 08:35:00* Test Item Value Reference Range Interpretation Comments PT (test code = PT) 12.6 s 12.0-14.7 [facility] MQADX2985-73-79 22:30:00Negative (12/10/13 5:30 PM) [facility] XJDLJ8978-18-74 22:30:00Trace *ABN*(12/10/13 5:30 PM) [facility] YXUIW9798-92-41 22:30:003[facility] XGGAH9701-42-96 22:30:001.004[facility] NEMJI4397-43-37 22:30:00 Clear (12/10/13 5:30 PM)[facility] RYPXU9111-11-59 22:30:007.0 [facility] PHFLZ5231-06-61 22:30:00Negative *NA*(12/10/13 5:30 PM) [facility] RIZCD7747-20-39 22:30:00Negative (12/10/13 5:30 PM) [facility]annCHEM NKQBV6274-16-65 18:40:001.9[facility] HermannIMMUNOLOGY 2013-09-24 12:14:00<0.4[facility] GGDFY7607-97-90 05:40:001.008 [facility] LYZRI7837-77-04 05:40:00Clear (09/19/13 12:40 AM) [facility] TIGHU9052-09-83 05:40:006[facility] OIFPK4657-98-48 05:40:00<1[facility] UBFTQ2607-66-52 05:40:002 [facility] CYQBV7527-40-87 05:40:00Small *ABN*(09/19/13 12:40 AM) [facility] PGFHQ1175-49-50 05:40:00Negative *NA*(09/19/13 12:40 AM) [facility] PINSR3973-55-45 05:40:006.0[facility] FAFIH2930-16-40 05:40:00Small *ABN*(09/19/13 12:40 AM)[facility] LSVFA3561-68-40 05:40:00Negative (09/19/13 12:40 AM)[facility]annCHEM PANEL 2013-09-19 01:58:001.3[facility] HermannCHEM NXPAG1402-91-66 01:58:003.1[facility]annCHEM DKXXW8668-58-81 01:58:0017[facility]annCHEM BLDFF8577-22-68 01:58:0012.5[facility]annCHEM JQCMQ1568-62-99 01:58:91344Pkgopjqw HermannCHEM HMRCV3230-10-24 01:58:0012[facility]annCHEM TFTZS1628-95-95 01:58:0090 [facility]annCHEM GOHCY9350-79-26 01:58:000.7[facility]annCHEM PANEL 2013-09-19 01:58:000.5[facility]annCHEM YBXGZ4946-61-38 01:58:59485Hffdkukv HermannCHEM CPOPC7945-72-81 01:58:83648Iwuelxuf HermannCHEM YSAYZ1808-17-75 01:58:008.9[facility]annCHEM YTOQZ2906-17-74 01:58:0025[facility]annCHEM BQTQK7797-24-57 01:58:004.0[facility]annCHEM PELUA4557-96-77 01:58:007.1 [facility]annCHEM YCJIZ5430-63-59 01:58:76453Bqngjdsy HermannCHEM PANEL 2013-09-19 01:58:003.5[facility] HermannCHEM NWION4630-43-29 01:58:72963Vggxzzgx HermannCHEM HDIJC2127-18-42 01:58:10721Xetghvof HermannCHEM IWBST6696-42-57 01:58:001.9[facility] TnosgypEYOQRJOCSQ3842-94-08 01:58:39063Byvagxys [place] MQPTVGFJBJ9525-15-73 01:58:0033.9[facility] YceuwrfFFSQFLQGIO1960-40-04 01:58:00* Test Item Value Reference Range Interpretation Comments MCH (test code = MCH) 31.9 pg 27.0-31.0 [facility] ZrgujzgGGUJECDTNK5184-61-25 01:58:009.0[facility] HermannHEMATOLOGY 2013-09-19 01:58:0013.7[facility] IdzojyrJOUCGJCMPM5344-53-36 01:58:0035.9[facility] YdovymeNBSMIZYVMO5111-67-64 01:58:0012.2[facility] EvyrattZREZEAABOW7122-25-32 01:58:003.81[facility] YbxbgfkRVZYZJKNHE6004-50-40 01:58:0094.2[facility] [place] QZWARDSUHL3958-64-45 01:58:005.8[facility] AmbysgtFIQRWWDIPJ8950-88-76 01:58:000.3 [facility] ZjdznvtBYUUQHYCJR1298-27-89 01:58:007.2[facility]annHEMATOLOGY 2013-09-19 01:58:003.4[facility] HnmyxliPWOENSECYS7641-71-31 01:58:0030.1[facility] IlnctrkOWWBAUHYSG3971-29-34 01:58:0058.4[facility] SgijwdwEFYXHVPSVF0854-19-04 01:58:000.4[facility] KnqxwchDWKBVQAFHK1588-15-62 01:58:001.7[facility] UWBICVFGAU1559-50-93 01:58:000.0[facility] XlifqjmMCKEZMJRRN6758-21-69 01:58:000.2 [facility] WlfxogoEQDLPDXFLV9878-93-83 01:58:004.0[facility] HermannCHEM PANEL 2013-09-13 03:45:76351Vrmsbrac HermannCHEM HVAYO3914-42-42 03:45:0012.9[facility] HermannCHEM ADMXJ7639-22-31 03:45:0027[facility] HermannCHEM KMWSM4768-66-92 03:45:008.6[facility] HermannCHEM VEGPV9061-04-11 03:45:000.7[facility] HermannCHEM WGHPY1633-11-51 03:45:18812Yevtxzfc HermannCHEM ABGVB0245-88-49 03:45:009 [facility]annCHEM BEQXP5719-40-79 03:45:003.9[facility] HermannCHEM PANEL 2013-09-13 03:45:32140Vmpioqor HermannCHEM DNOQZ3814-46-95 03:45:51703Jyziepnq LgpuiwxJCTNJCWWHEFQ7507-70-42 03:45:003.6[facility] HermannANEMIA HKZBN2602-93-22 02:45:0041[facility] HermannANEMIA WFVIP9202-43-25 02:45:74888Ahuusoqc [facility] ANEMIA SHSXD6955-69-97 02:45:0010[facility] HermannANEMIA QQSRJ4159-76-44 02:45:00 374[facility] HermannANEMIA RELBI4427-59-32 02:45:14055Svcdnzhv HermannBLOOD BANK MKHGEFV1913-22-55 02:45:00Negative (09/12/13 9:45 PM)[facility]annCHEM PANEL 2013-09-13 02:45:00<0.1[facility] HermannCHEM GNOXR5567-21-91 02:45:001.9[facility] HermannCHEM FZXXW2476-56-51 02:45:005.3[facility] HermannCHEM UDAII1636-64-39 02:45:0092[facility]annCHEM KDRFW7848-81-97 02:45:0029[facility] HermannCHEM CPOTO2421-35-99 02:45:0011[facility]annCHEM EYLBO9800-70-07 02:45:0063 [facility] PWYNY3598-79-71 02:45:0082[facility]annCHEM PANEL 2013-09-13 02:45:41427Nkllwwby HermannCHEM FQAIU7753-02-60 02:45:001.0[facility]annCHEM FRMNT7040-76-10 02:45:60062Nqdthmkc HermannCHEM ASWXD8656-42-28 02:45:004.0[facility]annCHEM AIFAL6055-85-80 02:45:003.9[facility]annCHE[facility] DPZDX5088-61-74 02:45:008.6[facility]annCHE[facility] WJYNV1464-10-27 02:45:007.9 [facility] JKQSX0813-89-06 02:45:0013.6[facility]annCHEM PANEL 2013-09-13 02:45:0030[facility]annCHEM VHCVS8408-71-20 02:45:22673Gxwgewyf HermannCHEM ORISF1868-30-63 02:45:00See Note 1, 2(09/12/13 9:45 PM)[facility]ann[facility] IKPEL3480-31-07 02:45:77430Ipqnhxdn HermannCHEM CNBDU6738-74-41 02:45:00See Note 5(09/12/13 9:45 PM)[facility]ann[facility] QYBLJ6552-40-33 02:45:00 See Note 4(09/12/13 9:45 PM)[facility] VyaqipqOQYQEFTCUV5606-67-09 02:45:001.1 [facility] GomtpxvHJVTZMMUAU7879-57-42 02:45:001.7[facility]annHEMATOLOGY 2013-09-13 02:45:000.0[facility] KbchylpRGBTRAPQHZ0671-72-08 02:45:000.3[facility] XjfnneyDKSEURUHSY0615-73-27 02:45:000.3[facility] DhboqhoYVQXHUKJCF1329-26-74 02:45:0037.3[facility] UynvnboLLLCJQAENI6750-39-94 02:45:0048.8[facility] ZWGXLVOZYO3022-60-57 02:45:00Normal (09/12/13 9:45 PM)[facility]annHEMATOLOGY 2013-09-13 02:45:00Normal (09/12/13 9:45 PM)[facility] LmepwxvGGJAYURVLO2935-21-59 02:45:002.3[facility] ZpozxhoWUCRYAYJRT4801-89-88 02:45:000.8[facility] VXZXMYZBSE5535-56-71 02:45:007.1[facility] ZytkhmsYUPBDUPEUA0484-58-78 02:45:006.0 [facility] UifipbqATQOOUUDBU8007-86-83 02:45:00* Test Item Value Reference Range Interpretation Comments PTT (test code = PTT) 30.3 s 22.9-35.8 [facility] BlmsbraXFJQGRWVQO9688-80-43 02:45:000.96[facility]annHEMATOLOGY 2013-09-13 02:45:00* Test Item Value Reference Range Interpretation Comments PT (test code = PT) 12.7 s 12.0-14.7 [facility] LcmahwkBBQPNQLRCR4296-02-39 02:45:0010.5[facility]annHEMATOLOGY 2013-09-13 02:45:01849Zkuvblhg NyrbfgmYHTKVZQUZQ5963-66-17 02:45:0014.4[facility] VtyjqoaOTGAISKIGM6944-82-99 02:45:00* Test Item Value Reference Range Interpretation Comments MCH (test code = MCH) 31.8 pg 27.0-31.0 [facility] NoslstuRHALRHDDON5497-50-65 02:45:0096.0[facility]annHEMATOLOGY 2013-09-13 02:45:0035.2[facility] OzdvlkyNNPATCQXGR2009-32-71 02:45:004.7[facility] LlmlxgcIXFGTVUMLS9380-00-31 02:45:0033.1[facility] XnnzpknRSYBDMTBXT6940-23-98 02:45:003.66[facility] MhbffjwTLHGCPFJQN9575-76-36 02:45:0011.6[facility] URINE AND GMCLL2563-49-98 22:35:00Clear (09/12/13 5:35 PM)[facility] WGZPQ4692-31-61 22:35:001.006[facility] SFNUU1077-75-97 22:35:00Negative *NA*(09/12/13 5:35 PM)[facility] SRNQP0801-85-16 22:35:00Large *ABN*(09/12/13 5:35 PM)[facility] UPIRZ3966-53-42 22:35:00<1[facility] AZSCF1826-58-61 22:35:007.0[facility] URINE AND NDMWX4167-45-76 22:35:00Negative (09/12/13 5:35 PM)[facility] ARBEW5367-75-81 22:35:00Negative (09/12/13 5:35 PM)[facility] RCIVT8703-09-00 22:35:0029[facility] FXCV5158-52-93 22:35:00Negative (09/12/13 5:35 PM)[facility]annCHEM ISXBP3418-24-82 11:58:008[facility] CHEM MWWYV1972-58-03 11:58:002.4[facility]annCHE[facility] QZRGO0890-02-70 11:58:001.2 [facility]annCHE[facility] NUIYO3067-98-01 11:58:96590Mtjmteke HermannCHEM PANEL 2013-09-10 11:58:003.7[facility]annCHE[facility] TGMSI3749-44-28 11:58:47262Wculqvrj HermannCHEM WMYNW2018-66-49 11:58:0020[facility]annCHEM OODRR8121-15-46 11:58:0010.7[facility]annCHE[facility] HFEVU8046-61-49 11:58:83404Empsatgg HermannCHEM MPVYN6150-90-36 11:58:000.2[facility]annCHE[facility] TMENJ1239-98-21 11:58:0029 [facility]CHE[facility] XIEJD2178-13-49 11:58:008.6[facility]annCHEM PANEL 2013-09-10 11:58:005.4[facility]annCHE[facility] XSPGY0667-71-82 11:58:003.0[facility]annCHE[facility] OPUBJ6534-94-92 11:58:0095[facility]annCHEM PNZZO9547-20-79 11:58:000.6[facility]annCHE[facility] INZFE8065-80-66 11:58:70568Lsaxsyjd HermannCHEM VCHYL6521-62-83 11:58:0081[facility]annCHEM DHJNZ4444-21-21 11:58:005[facility]CHE[facility] YNDFI3310-18-29 11:58:00<0.1[facility]annCHEM UXVRZ5946-88-79 09:28:47764Pymwnztj HermannCHEM UZQNC3451-14-41 09:28:0042[facility]annCHEM DSFML8060-30-96 09:28:59761Wcmzvejk HermannCHEM ZFOMH6893-77-36 09:28:00<0.1 [facility]CHE[facility] COSMY2881-33-57 09:28:000.1[facility]annCHEM PANEL 2013-09-08 09:28:00>0.0[facility]annCHEM NSBLJ5963-11-23 09:28:001.2[facility]annCHEM YSYSZ4810-49-42 09:28:002.6[facility]annCHEM GIBZA5354-92-08 09:28:003.0[facility]annCHE[facility] ZGCSN2928-73-22 09:28:005.6[facility]annCHEM NWMHN4436-41-44 09:15:17168Betskxdt HermannCHEM BGWAI4762-11-32 09:15:0031 [facility]CHE[facility] HCVDY9728-42-34 09:15:90135Wdunlrgj HermannCHEM PANEL 2013-09-07 09:15:002.9[facility]annCHEM YIMBD1474-68-56 09:15:001.2[facility]annCHEM MMRCJ6290-44-39 09:15:00>0.1[facility]annCHEM CFPLE0944-04-87 09:15:000.2[facility]annCHEM EZLTO0279-36-66 09:15:00<0.1[facility]annCHEM LGBJQ7073-61-92 09:15:006.4[facility]annCHE[facility] QONTC8271-27-64 09:15:003.5 [facility]CHE[facility] ZBAIY7828-82-58 10:26:00>0.2[facility]annCHEM PANEL 2013-09-04 13:25:20636Lkidehyi HermannCHEM EAQVD5517-47-93 13:25:65911Pymdmcjc HermannCHEM VLEHA4439-07-28 13:25:0073[facility]annCHEM SYSLA0788-89-23 13:25:003[facility]CHE[facility] ZFHFO5437-10-36 13:25:000.6[facility]annCHE[facility] GCVBT6672-07-11 13:25:0011.1[facility]annCHE[facility] AHPSQ9352-35-86 13:25:005 [facility]CHE[facility] BCYNQ5944-07-68 13:25:008.1[facility]annCHEM PANEL 2013-09-04 13:25:004.1[facility]annCHE[facility] YSDSM9994-51-70 13:25:0025[facility]annCHEM AZYXX9030-42-04 13:25:02879Javcaszv KftjxycRTADTRBGGM2906-49-37 10:28:000.1[facility] ZlvhtgjCYETBVPZTM0898-06-93 10:28:74097Bxqhfpli [place] WDIVKOPZOT6988-87-20 10:28:00Negative (09/04/13 5:28 AM)[facility] FKLGJAGFVI8597 10:28:00Negative (09/04/13 5:28 AM)[facility] XZQLXVYLVF4639-86-57 10:28:00<20.0[facility] VsdgaaaVWPHFVPLVF2133-91-82 10:28:00 22[facility]annCHEM GEWBT2122-30-10 11:34:08994Fplzhfsa HermannCHEM PANEL 2013-09-03 11:34:40969Duxzpjam HermannCHEM DPUQY5887-28-92 11:34:0027[facility]annCHEM FIJFZ5635-20-15 11:34:008.1[facility]annCHEM TYQHB3743-40-72 11:34:006[facility]annCHEM VKSHN5012-52-53 11:34:24509Wbvtfwks HermannCHEM DCYXM4004-16-11 11:34:000.6[facility]annCHEM NDIKU3958-66-66 11:34:004.0 [facility]CHE[facility] YFQMM6867-66-55 11:34:0061[facility]annCHEM PANEL 2013-09-03 11:34:006.0[facility]annCHEM ARMDN3428-33-92 11:34:0010[facility] WfurlydEVPQPFBDPB1674-68-60 11:34:001+ *ABN*(09/03/13 6:34 AM)[facility] YRXXKQLHGA7904-76-02 11:34:00Slight *ABN*(09/03/13 6:34 AM)[facility] LIJYHMJVTD2527-53-75 11:34:000.0[facility] GerbgizMQURKPWTUI6042-91-46 11:34:000.2 [facility] XvhlksgRWDRHUIDGK1399-56-88 11:34:000.2[facility] HermannHEMATOLOGY 2013-09-03 11:34:006.3[facility] EsmhhzqNQCJMQBJOF1454-37-93 11:34:001.0[facility] SdlgsmmLDRROPEDVC3297-97-17 11:34:002.2[facility] PlmocnkSSXRJFIDVA2480-66-37 11:34:000.7[facility] LgbooagQTPOMLPCDJ7732-29-70 11:34:0064.7[facility] TMFAAKLYSG8525-74-20 11:34:005.8[facility] CvkfamjIGMIMXYODH8755-36-60 11:34:00 Normal (09/03/13 6:34 AM)[facility] IizmkdkWOGPOQWBLH7960-13-13 11:34:0022.2 [facility] ZefsjyzCGCUXYUQBM7586-15-49 11:34:0010.2[facility] HermannHEMATOLOGY 2013-09-03 11:34:002.94[facility] YndvdymRPXRFMTKDR0031-58-50 11:34:009.6[facility] LniadstHTREYHGNRU4509-30-10 11:34:0028.0[facility] RxnyqiqNGTAIMBPAB1201-51-28 11:34:0095.2[facility] WushltlDSINCTTQJC7578-24-22 11:34:00* Test Item Value Reference Range Interpretation Comments MCH (test code = MCH) 32.5 pg 27.0-31.0 [facility] NhwhgvjWXUKAPARRF7619-46-82 11:34:0034.2[facility]annHEMATOLOGY 2013-09-03 11:34:75845Svjvdtuy EplpvkgNOHYGILKTJ2125-87-68 11:34:0014.2[facility] MbitellUYTHDFRMRA6946-26-14 11:34:003.4[facility] CxojghzLBLPTEFGKF2219-61-30 11:34:00Negative *NA*(09/03/13 6:34 AM)[facility] LkwmwirPLPGAMUOCG2969-22-57 11:34:00Negative *NA*(09/03/13 6:34 AM)[facility] OgkoamxEYWVQBVOZO5301-10-40 11:34:00Negative *NA*(09/03/13 6:34 AM)[facility] PwuokwlZCODSBFKQC3893-50-97 11:34:00Negative *NA*(09/03/13 6:34 AM)[facility] CyjtebmYBAQGTPXMY6088-82-08 11:34:00Negative (09/03/13 6:34 AM)[facility]annCHEM ZPSRF6452-86-66 05:53:00 170[facility]annCHEM IUHFU8537-40-81 05:53:0054[facility]annHEMATOLOGY 2013-09-02 05:53:0033.4[facility] RokyutsPCOYHGYHWR3121-60-66 05:53:008.5[facility] SqmenpyWLBUUHVMTV3594-05-48 05:53:0054.8[facility] KpeheqvTJTLFAPEJB2439-53-73 05:53:000.1[facility] NsldnvbYNOACDSXFS3798-72-97 05:53:000.0[facility] GXMFHYCZSP1070-48-39 05:53:001.7[facility] RtteduzSUXBEEJHUB3791-02-45 05:53:000.4 [facility] PbkyyqrMRDGLPZVVK4786-31-18 05:53:000.5[facility]annHEMATOLOGY 2013-09-02 05:53:002.8[facility] AkiwgzzMIBXSYKJHA6326-02-31 05:53:002.8[facility] DulhjxuFISLZYUMNY3802-68-34 05:53:0010.2[facility] VdvwyysMNRFLBJOLW7765-10-48 05:53:15087Cethojmv PivvcswSHRMJGKNAD3708-76-81 05:53:003.93[facility] KBANITCLOY4150-50-36 05:53:0012.5[facility] FfdzkplTKKFTIHBPX0908-36-05 05:53:00 5.0[facility] FynuqevVSGWLRLOUG5506-12-67 05:53:0033.7[facility]annHEMATOLOGY 2013-09-02 05:53:00* Test Item Value Reference Range Interpretation Comments MCH (test code = MCH) 31.9 pg 27.0-31.0 [facility] KasufjsKOSTZBORXB0580-51-72 05:53:0014.0[facility]annHEMATOLOGY 2013-09-02 05:53:0094.6[facility] SlhupkxKSMQQSUGOX4246-09-12 05:53:0037.2[facility] VGWYS9815-11-18 04:24:00Small *ABN*(09/01/13 11:24 PM)[facility] XGWLJ5316-56-80 04:24:00Negative (09/01/13 11:24 PM)[facility] TVVDY7934-40-68 04:24:00Negative *NA*(09/01/13 11:24 PM)[facility] OOTEE6191-13-75 04:24:005.0[facility] STOOL 2013-09-02 04:24:00Negative (09/01/13 11:24 PM)[facility] STOOL 2013-09-02 04:24:008[facility] GBPYS1647-25-42 04:24:00<1[facility] RVBNR5661-28-23 04:24:001.020[facility] STOOL 2013-09-02 04:24:00Clear (09/01/13 11:24 PM)[facility] FFOC6209-24-26 04:24:00Negative (09/01/13 11:24 PM)[facility]annCHEM ULUSZ1480-42-87 07:00:00 8.9[facility]annCHEM NSEWX5169-58-45 07:00:000.1[facility]annCHEM PANEL 2013-09-01 07:00:89247Ytxnelft HermannCHEM HIGAE6103-70-21 07:00:76876Vegxbusw HermannCHEM EWDUA5325-17-24 07:00:006.9[facility]annCHEM LXMWV1487-70-58 07:00:0025[facility]annCHEM POHJL4443-66-68 07:00:93380Rfjxyjae HermannCHEM RUHVJ7888-69-51 07:00:000.7[facility]annCHEM IBCZU7891-75-06 07:00:92626 [facility]CHE[facility] XHMOC3749-89-38 07:00:003.4[facility]annCHEM PANEL 2013-09-01 07:00:0012[facility]annCHEM WUQZI1312-24-37 07:00:49533Aarphtwj HermannCHEM VMLJF1913-06-20 07:00:0095[facility]annCHEM JCGIA4841-33-78 07:00:003.8[facility]annCHEM XINTL3280-78-66 07:00:69884Zpfehxkg HermannCHEM SUFFQ1290-87-19 07:00:0017[facility]annCHEM HFJIM8096-84-08 07:00:001.2 [facility]CHE[facility] FKRQS4179-01-39 07:00:003.1[facility]annCHEM PANEL 2013-09-01 07:00:0012.4[facility] PvzzdirAZQGYCCYKP4674-63-65 07:00:000.2[facility] WkoyrbpZGTMTFVRSM0174-55-80 07:00:000.0[facility] NgdvyppRRUBAFJLMZ3140-93-04 07:00:000.7[facility] JllxknzXLQJFTCEOP2247-55-12 07:00:002.1[facility] INVVRYFBMM0406-61-08 07:00:000.5[facility] VgvdgrtAZCTARZGUQ3918-93-46 07:00:000.2 [facility] XstrvwjNBQIGEWFFP2163-18-06 07:00:0066.6[facility]annHEMATOLOGY 2013-09-01 07:00:0016.9[facility] HfevopqOKKBNHNNYM0402-29-79 07:00:008.1[facility] JsrslssBHWOGFZHNG6316-57-74 07:00:007.7[facility] LkabajdEEMIAYYQCT9708-27-11 07:00:0033.6[facility] XzotyugHXMDSHVUQJ0073-20-43 07:00:00* Test Item Value Reference Range Interpretation Comments MCH (test code = MCH) 31.7 pg 27.0-31.0 [facility] JzjjyrnPIJZUBEZNE9578-54-81 07:00:29830Kxsrzkgk HermannHEMATOLOGY 2013-09-01 07:00:0013.7[facility] SfqdfusDJMSAXMJES4574-83-88 07:00:0011.4[facility] OyvhwlwQFYOLEVKPX0524-33-27 07:00:003.58[facility] BoytjvfNXEUNWYOVO0138-75-99 07:00:0033.8[facility] TvkscsvVZJLLJFSZG9166-62-54 07:00:0094.3[facility] XGJCFCLJYU3693-27-19 07:00:0010.1[facility] PjykttoEIDXCZXZFA0595-75-65 07:00:00 3.1[facility] UsqlncjRWMWTKNHSP1480-65-49 05:53:00Negative (09/01/13 12:53 AM) [facility] DQXAF4380-67-99 04:50:001[facility] JJFXD3804-05-71 04:50:001[facility] WIIYG4633-32-50 04:50:005.0 [facility] SCSSD2621-79-25 04:50:00Negative *NA*(08/31/13 11:50 PM)[facility] NRLSQ8851-80-36 04:50:00Negative (08/31/13 11:50 PM) [facility] NLRDB1385-28-20 04:50:00Trace *ABN*(08/31/13 11:50 PM) [facility] EWHBR9364-27-78 04:50:00Negative (08/31/13 11:50 PM) [facility] OIUVP6388-91-63 04:50:00Clear (08/31/13 11:50 PM) [facility] OZFYG3227-22-29 04:50:001.014[facility] WKZS5067-89-74 04:50:00Negative (08/31/13 11:50 PM)[facility]annURINALYSIS 2013-06-06 02:57:001[facility] ZetawpmZYEALYTLGC3428-55-74 02:57:00Clear (06/05/2013 20:57:00) [facility] WfiezsqPNQWRXODUP3506-89-14 02:57:001.005 [facility] OsljbwoMTNNFLGLPH1631-00-51 02:57:007.0[facility]annURINALYSIS 2013-06-06 02:57:00Negative *NA*(06/05/2013 20:57:00) [facility] WQULGFMCOD4251-96-24 02:57:00Negative (06/05/2013 20:57:00) [facility] [place] CTTRLCEHYP0904-76-06 02:57:00Negative (06/05/2013 20:57:00) [facility] [place] NUCIJQAYPY0231-73-58 02:57:003[facility] KarntitHNEKJYFWEK9073-68-39 02:57:00 Moderate *ABN*(06/05/2013 20:57:00) [facility]annVIRAL - NTFZEDKP0442-39-47 02:41:00Negative (06/05/2013 20:41:00) [facility] - SEROLOGY 2013-06-06 02:41:00Negative 1(06/05/2013 20:41:00) [facility]annCHEMISTRY 2013-06-06 02:30:002.0[facility] YobvemoNECDJQAXR3007-38-56 02:30:0094[facility] UlknyqhUFPBQNEQI1217-39-30 02:30:0018[facility] VxuhnzvODRGFMFMU4413-67-57 02:30:003.6[facility] ZhyfpuiILLHYPRYS3038-18-11 02:30:0030[facility] BBLJUMBKL2886-34-09 02:30:23158Oftpepbj FrtblieCNILCQDDE6806-01-67 02:30:0052 [facility] NjulbdwSYUPXNPXR1698-82-36 02:30:003.9[facility] HermannCHEMISTRY 2013-06-06 02:30:008.7[facility] JemhnqaTVVRTBAAX6020-98-72 02:30:10078Bbmkxocz HvrkotkSIEDEOYHQ2377-46-51 02:30:000.8[facility] RyuokofQHKSVOVKB7187-09-23 02:30:80047Irneknjy NigwovmMKFTMHZNQ6070-79-93 02:30:0015[facility] [place] EIMHFECVA7189-76-48 02:30:54335Dbjpviej NfprxllJGURNYFMZ0396-99-63 02:30:000.2 [facility] TsfovbrZFKMKWOQQ6428-63-52 02:30:007.3[facility] HermannCHEMISTRY 2013-06-06 02:30:0019[facility] XwlybwuSKCZSVEAM1761-43-36 02:30:009.6[facility] EpotsskMHCDILDGY1800-83-51 02:30:003.4[facility] VywvysjVRRSQELWS8565-02-33 02:30:001.1[facility] PfnxvlrYTXECRPXVQ6354-93-77 02:30:0025[facility] [place] WECBNCAXFL1781-97-35 02:30:0094.2[facility] RhzyacvCLQWXPQYZQ9844-90-88 02:30:00 32.7[facility] PglpktaSKSGLGBZTN8268-41-71 02:30:00* Test Item Value Reference Range Interpretation Comments MCH (test code = MCH) 30.8 pg 27.0-31.0 N [facility] VgepxyeQOVCDRZOQY2392-65-26 02:30:0014.2[facility]annHEMATOLOGY 2013-06-06 02:30:009.0[facility] PkudnktPBQFAYSVNJ2319-89-44 02:30:52130Hcinmzqm NilsktmLXCVSGDGIE9030-74-17 02:30:0012.0[facility] McdcnzaNWPGHEDISO4841-84-50 02:30:0036.7[facility] ExufdsmDPHXWUWFOG1652-26-69 02:30:003.89[facility] ZYCOCFJXIM3934-66-28 02:30:004.2[facility] XcqszuqFCWMXYUKLI8847-29-50 02:30:001.9 [facility] PqojnhwMTBKKXKKKW0875-35-17 02:30:000.0[facility]annHEMATOLOGY 2013-06-06 02:30:000.3[facility] IbvwutdKNMBSVLLVC8180-96-71 02:30:0043.2[facility] VmvedodWPQVCEBPAW1014-15-42 02:30:002.4[facility] LllyuifGJTOTCTQQZ3825-92-48 02:30:000.1[facility] IbfvnvsAXBGTJVYKA7932-62-25 02:30:001.8[facility] AKZCOBYJZL7262-53-42 02:30:000.7[facility] XavfagzZDRJXVJLIS4996-88-05 02:30:006.8 [facility] FnhugzjAHETTOADRR9269-61-79 02:30:0046.9[facility] HermannCHEMISTRY 2013-02-12 07:36:00<0.6[facility] YycdsffRRYKTNCZO4428-83-23 07:36:00<0.02[facility] SstvjnlSLEOZCQKU0946-82-46 07:36:00<0.5[facility] LvkcpkdUNCCNFROI9889-16-51 07:36:0088[facility] NpsdbnnHXBRVBQIJ0561-74-45 04:40:00<0.6[facility] OLWWQHJAL2375-24-83 04:40:00<0.02[facility] AvhohjuAAECMHAPR2512-37-25 04:40:0086 [facility] RyswjdcBKAINRGWC7120-38-81 04:40:00<0.5[facility] HermannCHEMISTRY 2013-02-12 04:40:0094[facility] UmdiztgBUJVYSTNR3806-23-63 04:40:003.3[facility] NyzhpvpSQZPULIGX2202-00-29 04:40:001.3[facility] KyvniphAOJXSKZAS6509-32-95 04:40:0015[facility] BdnumuxJMWIEQUAR7257-28-15 04:40:0012.8[facility] TMWTMLJWX3626-25-19 04:40:78646Lzaccvjw ClfjbmkWHKMBGWBX8006-90-28 04:40:000.3 [facility] HhtfwziUPSKPOEIE5624-01-44 04:40:0014[facility] HermannCHEMISTRY 2013-02-12 04:40:000.8[facility] AgpyesmDENBNEGMH6242-24-65 04:40:0081[facility] LafdvynPCUTSPIEO9267-08-08 04:40:0012[facility] QictlloGFTREFQZA5898-65-27 04:40:007.6[facility] NieuqrkPEDLOVOCD1549-51-84 04:40:004.3[facility] [place] QLPXUZYZK3350-54-50 04:40:0028[facility] PwvprveSQKBDHMZN7127-37-56 04:40:009.8 [facility] PxbcgcuBQKXDIBPF8259-05-79 04:40:0050[facility] HermannCHEMISTRY 2013-02-12 04:40:44001Qumfhydg CrvjyjyIVOZINFCH4248-56-18 04:40:91902Wercobnv TotemcyLDXRGDFRD1396-25-51 04:40:003.8[facility] UhzexnyFXFWOWHPKD4796-07-18 04:40:000.0[facility] LtxfhwyPZPIMHSKQD6696-63-98 04:40:000.1[facility] [place] RGRMYZKGBX7045-78-06 04:40:002.2[facility] NkbzgdsMMXGGNQINT3592-46-22 04:40:001.9 [facility] UkjwzukLNIKAPMDNA5603-24-01 04:40:000.3[facility]annHEMATOLOGY 2013-02-12 04:40:007.1[facility] FqbvzpqBQLXQHLZDA1736-50-92 04:40:000.6[facility] MygvkcoDOKOFQNKZY2502-51-70 04:40:001.9[facility] MerurlqBXZEOXENGW9781-84-26 04:40:0044.8[facility] QetqnkgMIELRDYYOX1549-97-66 04:40:0045.3[facility] GIVXNJAVBC2020-20-20 04:40:0032.6[facility] ClnzxneDBKHNJWHXL9867-11-28 04:40:00* Test Item Value Reference Range Interpretation Comments MCH (test code = MCH) 31.0 pg 27.0-31.0 N [facility] QjpsafsGVASZZCVHB1504-69-41 04:40:0014.3[facility]annHEMATOLOGY 2013-02-12 04:40:86219Nqpyoxly NsxzutqNJDNZVSZXI7526-10-24 04:40:0010.0[facility] DwovybeGKIXXXZSHY4837-18-59 04:40:004.3[facility] PlwuvsiXMEXFZCKMC2647-91-81 04:40:0012.5[facility] ZpudgljVHRNBKODKJ4767-17-36 04:40:0038.2[facility] DLTGZKJTLH6137-04-00 04:40:0095.1[facility] VkqkiurTACMKJZSBW0339-69-79 04:40:00 4.02[facility] BfhwgpiFGBFNBCYJH9531-76-38 01:54:00Occasional /LPF *NA*(02/11/2013 20:54:00) [facility] KrzgfidQMIFXIIDAX6794-86-94 01:54:00Few /HPF *NA*(02/11/2013 20:54:00) [facility] PksvwysWIMWLRCDFZ4491-10-13 01:54:007[facility] ATJSBXYENS8377-30-27 01:54:001[facility] RlylfhgSTZQZHYRVV4645-08-83 01:54:00 Negative mg/dL *NA*(02/11/2013 20:54:00) [facility] ZxrzaqqPMJJTXKZKC9438-54-02 01:54:001.010[facility] BmjyshfWKABENUYVF3831-25-39 01:54:00Trace mg/dL *ABN*(02/11/2013 20:54:00) [facility] FndjhmhRSIMWADBMC6764-94-70 01:54:00 Negative *NA*(02/11/2013 20:54:00) [facility] ZrewpegLZVNYMQXOF7421-99-59 01:54:00Negative (02/11/2013 20:54:00) [facility] IdlqitnOIWDKAHIEF1204-85-60 01:54:00Large *ABN*(02/11/2013 20:54:00) [facility] RreriuyYANNDGRPNH7630-09-35 01:54:00Negative (02/11/2013 20:54:00) [facility] KinbijkIYQHFPNMSG8217-21-48 01:54:00Negative mg/dL (02/11/2013 20:54:00) [facility]annURINALYSIS 2013-02-12 01:54:00Clear (02/11/2013 20:54:00) [facility]annURINALYSIS 2013-02-12 01:54:005.0[facility] [place]OFQXPBYVRB9012-02-02 05:45:000-2 /HPF (09/28/2012 00:45:00) [facility] UtmdrmqYGDKVBEQOS4210-79-89 05:45:00Performed (09/28/2012 00:45:00) [facility] KgqsciyEBRCHNHZXF8410-28-76 05:45:00Small *ABN*(09/28/2012 00:45:00) [facility]FTNKXYZJDL0032-58-83 05:45:00Few /HPF (09/28/2012 00:45:00) [facility]NqswbqxDTUMXCIXFU8949-49-39 05:45:006-10 /HPF *ABN*(09/28/2012 00:45:00) [facility]ExkkquwSQPUGUHBOP8078-25-91 05:45:00 Few /LPF (09/28/2012 00:45:00) [facility] LakeWlxrlxkEIWWUEZQQX0963-55-48 05:45:00 Negative (09/28/2012 00:45:00) [facility] LakeBbwzwdtFOTKNUONBW2198-33-89 05:45:000.2 [facility] LakeNeswlsfVNIXRACMSY1880-20-27 05:45:00Negative (09/28/2012 00:45:00) [facility] ResourcesLzuoetwDUVDSXUKUB4527-13-40 05:45:00Negative (09/28/2012 00:45:00) [facility] ResourcesDepjbobPAIXLBSTKR8996-68-93 05:45:00Negative *NA*(09/28/2012 00:45:00) [facility] ResourcesPlpyfryLFTYLLNBFX6061-45-16 05:45:00* Test Item Value Reference Range Interpretation Comments UA pH (test code = UA pH) 6.0 1 5.0-8.0 N [facility] ResourcesLzvwfmsTOZRPVEPHI6673-18-64 05:45:00Negative *NA*(09/28/2012 00:45:00) [facility] ResourcesVkoibnaBKFAOBTWTN5619-75-71 05:45:00Moderate /LPF *ABN*(09/28/2012 00:45:00) [facility] ResourcesJvkdjufACXYWQVIKR1740-94-29 05:45:00Negative (09/28/2012 00:45:00) [facility] ResourcesAcxmqqjTIVMJRHWRK6090-65-54 05:45:00* Test Item Value Reference Range Interpretation Comments UA Spec Grav (test code = UA Spec Grav) 1.020 1 N [facility] CenterOkytmiiRRKEHNEMVV1572-53-07 05:45:00Slight Cloudy (09/28/2012 00:45:00) [facility] ResourcesJovczkjNEHKKDGKXS2734-01-26 05:45:00Yellow *NA*(09/28/2012 00:45:00) [facility] RtlsvzqVTSSOCJFM1228-17-15 01:58:294.3[facility] HermannCHEMISTRY 2012-09-28 01:58:291.7[facility] JcmffemWIGOHGPEB8253-69-14 01:58:2995[facility] IkijwjuUVOLHOJIZ1663-57-76 01:58:2912[facility] CxkqdlpHEGXUXKOH2544-78-50 01:58:2994[facility] DzimaugUICDNMNJQ1033-22-34 01:58:2931[facility] ZDDWVODOF5189-26-77 01:58:38471Xacsrexo ZhhcbcfWYXYPKMKH6143-62-72 01:58:290.8 [facility] RrsdcljTFCDQKAZH4781-15-59 01:58:66632Khjdhqpq HermannCHEMISTRY 2012-09-28 01:58:294.6[facility] SjwjqqgAABMZILQJ9348-67-77 01:58:299.7[facility] JybjnyeDEQSBZMRL7556-77-51 01:58:2911.6[facility] XnpmapoBJYWZHBMHQ8459-31-20 01:58:290.1[facility] TqqcuxvRUFLBKCZPY2701-86-81 01:58:290.3[facility] KOVCDXOGAH4843-27-28 01:58:290.1[facility] RloanhqZDNSOFXXYQ8042-27-31 01:58:296.6 [facility] WxbnwblFTNLQBLGVJ8643-82-37 01:58:2944.0[facility]annHEMATOLOGY 2012-09-28 01:58:2946.4[facility] KujpsywFJYUEPZVEI2231-51-64 01:58:292.1[facility] RnxilsgYKODCROFPL5525-16-28 01:58:291.3[facility] WdetxslNINVAANULC8859-90-82 01:58:291.7[facility] AyzwmkuNPHJUVGVOP8839-56-67 01:58:292.1[facility] TJEPYWEGCU6208-59-95 01:58:2995.6[facility] UwfglptJVJNPNNHZK8035-56-85 01:58:29 3.79[facility] IeznvsjPKVVXBAUFY3846-49-64 01:58:2912.2[facility] HermannHEMATOLOGY 2012-09-28 01:58:2936.2[facility] EgszzsrULWSXWAOQT6201-33-02 01:58:294.7[facility] LtstxsvEPNEFJNZNG6617-41-02 01:58:299.5[facility] QhwxdmfTIIBADBALR0271-74-32 01:58:2913.1[facility] BossebqFYSWCWKPHZ8316-43-81 01:58:40001Sbxlyopv [place] YKSXTQLTVM8619-12-76 01:58:29* Test Item Value Reference Range Interpretation Comments MCH (test code = MCH) 32.1 pg 27.0-31.0 H [facility] ScrdaqeWVQKKFFZOH5999-92-77 01:58:2933.6[facility] HermannCHEMISTRY 2012-08-10 11:04:003.7[facility] VzblcqwDZTPQVCHS4103-72-25 11:04:006.3[facility] JjeuajwGIVLQIKJG5860-22-12 11:04:0035[facility] YuztkykTHWGYWCCO1645-65-90 11:04:000.3[facility] ImtqfduDULNJHEDT8259-75-34 11:04:0015[facility] CMYXXHQYZ3946-17-53 11:04:0081[facility] OrymgrrHYGNLRRWU1293-92-05 11:04:00<0.1 [facility] GdngsqiYJMHHTLTV5082-25-37 11:04:002.6[facility] HermannCHEMISTRY 2012-08-10 11:04:001.4[facility] HjxvhslGRHKGSJNI3464-95-83 11:04:00>0.2[facility] JpkfiaaIVCNAVQMUB8097-42-53 11:04:000.4[facility] UottentPVVEOGIPCV9696-72-52 11:04:000.0[facility] XizdaucEVDJGVXYKX9451-34-22 11:04:000.4[facility] ZXOARTSMDD6756-81-51 11:04:000.0[facility] EuhhmivLYCGDMQQEB9624-33-95 11:04:00 20.8[facility] CtpfotnAGYIJOXCXX6738-61-82 11:04:0070.5[facility] HermannHEMATOLOGY 2012-08-10 11:04:003.2[facility] YjuefwbLPHWQHWDCI0719-09-32 11:04:000.1[facility] HqxgwpjSSEYKSLJCK0526-61-79 11:04:001.0[facility] VsmvuwkSTDIVRPFYT8662-51-04 11:04:008.2[facility] LtxkblfTYYZDYISEM0866-08-26 11:04:009.6[facility] JQGXCFJOAA8563-67-40 11:04:0010.3[facility] LaylaujGXOOHNSXIY4395-83-83 11:04:00 3.27[facility] IylrotfEYIKCTWSUR4688-24-43 11:04:0032.6[facility] HermannHEMATOLOGY 2012-08-10 11:04:0012.7[facility] PsgsneeGRIXCDGMFZ4200-32-70 11:04:68124Btnvpcis VhjulwvBMMCOWRVFZ1784-63-45 11:04:0031.7[facility] DhlyyazIZZEZEYJBP7819-93-34 11:04:0096.9[facility] ZobwhloRBNPJCAPVT4716-78-29 11:04:00* Test Item Value Reference Range Interpretation Comments MCH (test code = MCH) 31.6 pg 27.0-31.0 H [facility] QoaxhjpKLRGDSZWGA2224-92-39 11:04:004.6[facility]annCHEMISTRY 2012-08-09 11:03:31857Wsevluog SvftzuiIBPOGZDAG9929-89-71 11:03:003.2[facility] RtlqqtsVSGTTGILX6279-18-66 11:03:005.5[facility] YxwmqsgDBHBHCMRS4165-90-52 11:03:008.4[facility] FkpvwwfCGCFSXNIN4401-34-52 11:03:000.4[facility] IERYFVPIZ8268-26-95 11:03:0070[facility] QxtsvgoHWLOHBBNG4480-71-48 11:03:0022 [facility] VtekgztSOJNFMADA7331-04-23 11:03:006[facility] DxbylviRARFBIMTC7048-72-83 11:03:000.7[facility] AudwgxiKTQRMKYZT2585-98-25 11:03:0032[facility] XSKGELNYQ4795-93-35 11:03:0083[facility] TusowozEEAVEQIPT1478-29-73 11:03:002 [facility] QusmwijCXMXGCNTX9761-34-13 11:03:59710Aqepbiqf HermannCHEMISTRY 2012-08-09 11:03:003.8[facility] GrdqctePRBTDXTXI4523-18-55 11:03:70307Rmkrczlv NvykmhnHQUFADTMC4949-96-16 11:03:003[facility] WhzkouySLSVRQBGX3133-25-45 11:03:00 10.8[facility] RtylklzURRYJZQGX0751-83-76 11:03:001.4[facility] HermannCHEMISTRY 2012-08-09 11:03:002.3[facility] NbeylmaDHXKRBXHM0736-80-85 11:03:0096[facility] TjxmylhWZRIRUWID7295-17-62 11:03:0026[facility] BqrlubeWCMWFUILGQ9448-26-32 11:03:009.1[facility] ElupahdZCBDESJSFW7824-21-30 11:03:53320Sregiuvj [facility] WTHDATVRMR3058-06-35 11:03:003.3[facility] CsfeccnWXRZEBRLDH7522-53-73 11:03:00 3.06[facility] XyrfyvtIVBNTGAQQY6123-77-81 11:03:009.6[facility] HermannHEMATOLOGY 2012-08-09 11:03:0012.7[facility] IwppjieIQNCCICAVV2602-49-09 11:03:0032.4[facility] BhpshlpZWUAMTVEMJ3059-69-70 11:03:0029.6[facility] PjbndeeVIDKXHHZCL7640-23-25 11:03:0096.7[facility] JzcqnajQKTWMXCGGM5840-71-82 11:03:00* Test Item Value Reference Range Interpretation Comments MCH (test code = MCH) 31.3 pg 27.0-31.0 H [facility] LlrkekhHDWUYGWDFM2281-05-90 11:03:000.0[facility] HermannHEMATOLOGY 2012-08-09 11:03:000.2[facility] DylmnxhJDFGMTJOED6227-79-62 11:03:000.4[facility] OeuwifxOITIDAFXIY5617-30-64 11:03:001.5[facility] KfjjxfjYCKLBPGBDZ9129-45-01 11:03:001.3[facility] IoglcgkZMMZKBLRHS2635-79-65 11:03:000.7[facility] BNPMPCDBAY1246-43-26 11:03:0044.5[facility] CswuxqlMTLZMICYZE0726-98-74 11:03:00 10.8[facility] KwtvwqdEXXZQMBQFP6314-53-88 11:03:005.3[facility] HermannHEMATOLOGY 2012-08-09 11:03:0038.7[facility] BmguyouJSOBONQOX8841-99-02 13:00:36Negative (08/08/2012 08:00:36) [facility] TyhocfdRTIZFSUSL4875-27-04 21:00:000.2[facility] UrxwuxfSKEXRLJBM6522-80-32 21:00:0014[facility] HengnioGWFRYSNIF2605-17-01 21:00:007.3[facility] VmxnwqqYEAJLOMOF5628-53-62 21:00:0028[facility] [place] GNOWVGTMX7449-44-98 21:00:0043[facility] PmsuzerOSVOPSRGA5544-62-53 21:00:0095 [facility] EksedsnHREQFLVZS9675-49-20 21:00:0095[facility] HermannCHEMISTRY 2012-08-06 21:00:81449Nswlsndc VimyfptZVCHSNBXM4737-66-52 21:00:000.8[facility] QfpmrmqDAEIQOOGD7579-75-98 21:00:0010[facility] UqcetinVITLAZBTX8566-87-39 21:00:0087[facility] AiaivlvCKHAPHYVW3779-77-03 21:00:003.5[facility] MGLWJMBOP1545-32-88 21:00:004.2[facility] NmovcfkASFECWLLL3471-80-12 21:00:20354 [facility] VqjdlqiBLHWZCBOT3906-67-49 21:00:008.9[facility] HermannCHEMISTRY 2012-08-06 21:00:003.1[facility] LvaoqjoIKIKEQPHM8044-59-22 21:00:001.4[facility] XmhsbxvUAWWGABBR5106-41-53 21:00:0012.5[facility] IlvgpowFNOBVJBRE3846-91-16 21:00:0012[facility] JsdysxcYWMAXIFJAG6355-37-14 21:00:000.0[facility] [place] VDGJJDNABN3681-33-62 21:00:001.7[facility] OhbfzchJDWEVLYXGR0449-94-50 21:00:000.3 [facility] SjbtsjcSHMSWQKDSD6723-92-29 21:00:000.1[facility] HermannHEMATOLOGY 2012-08-06 21:00:002.4[facility] HgupxpaINRNIWRWGI7680-61-39 21:00:000.5[facility] WpqvcjpNFFVUYNNHJ6191-00-98 21:00:002.0[facility] QkyxoxuMBBKRWYXLD4440-03-20 21:00:0041.8[facility] ZpsyzgfYIBHSCHIFR3568-07-27 21:00:0048.4[facility] ARWSJKEZVV7698-11-11 21:00:006.9[facility] BoqwowpWQNHYJKKCV4316-44-04 21:00:004.0 [facility] ZiybmzzZLMAHADWLH2840-52-06 21:00:009.0[facility] HermannHEMATOLOGY 2012-08-06 21:00:56000Zrbijdru FhiqvvoSSCTHUZTQU2375-26-43 21:00:0013.2[facility] NjqmrdqTABVURGEKJ5151-56-11 21:00:0035.0[facility] IvtrzjuXRDODYJTWA5798-14-93 21:00:0011.4[facility] VaswsbrQANSAZZHXW5962-82-05 21:00:003.65[facility] KQDOLYKYGZ9902-27-37 21:00:0095.8[facility] ShliztwWTLIFZIVQT3418-63-73 21:00:00 32.6[facility] HwrsrhbBGXHATUWRX6292-93-10 21:00:00* Test Item Value Reference Range Interpretation Comments MCH (test code = MCH) 31.2 pg 27.0-31.0 H [facility] EomhwflVBXWQTYIG5353-56-58 22:35:007.4[facility] HermannCHEMISTRY 2012-07-17 22:35:003.1[facility] RlpykspFBUYABFCF4920-74-20 22:35:001.4[facility] MdoitciQFOFRDZLC4153-43-93 22:35:000.2[facility] VzbomsyNGYGWYJSH2908-37-01 22:35:02033Xtsdkiul WuwxzkaZEPWLEHFZ2071-81-67 22:35:0045[facility] PYWUEBCWX4710-59-18 22:35:63985Ezedbkgk SrhpeacXCRKZSMYU0757-97-79 22:35:0083 [facility] XmcabkoCSZCJZSFN6749-25-59 22:35:003.9[facility] HermannCHEMISTRY 2012-07-17 22:35:009[facility] JkfxrhtXWSZPKPVX7544-93-45 22:35:004.3[facility] AyzcuubLQBRFGBCK2699-31-58 22:35:0015.9[facility] OyxgcplPZZDINQCS8656-76-90 22:35:009.2[facility] ZjmjersLBMMITQHO9623-44-91 22:35:79604Aaqtskbu [place] EWBYXHIBH8096-57-13 22:35:0025[facility] IwqhdydYNJXPSYSI4808-72-28 22:35:34481 [facility] OdqogvwXXGZCCYNW9957-83-06 22:35:000.9[facility] HermannCHEMISTRY 2012-07-17 22:35:008[facility] GuomflyKNYORGHHR4779-68-92 22:35:0085[facility] KkjcayzQWEJJROAB4866-20-60 21:00:00Negative *NA*(07/17/2012 15:00:00) [facility] NznxjgdWUVKYCRRJ6140-79-67 21:00:00Negative *NA*(07/17/2012 15:00:00) [facility] DvkxkouZXNETUHWG4765-01-50 21:00:00Negative *NA*(07/17/2012 15:00:00) [facility] FykvafiJFUPYRVDY3473-70-43 21:00:00See Note 3(07/17/2012 15:00:00) [facility] DgdoyucELSZIPPKV7655-04-88 21:00:00Negative *NA*(07/17/2012 15:00:00) [facility] CkmdfedGNSROIFBF6664-01-41 21:00:00Negative *NA*(07/17/2012 15:00:00) [facility] WfxhcqbPJIIUKJBH5160-51-45 21:00:00Negative *NA*(07/17/2012 15:00:00) [facility] EcujyzgSDPDICYWC1311-02-43 21:00:00Positive *ABN*(07/17/2012 15:00:00) [facility] CdytuxtNMLNPEGLVT4663-37-36 21:00:009.1[facility] JmjbwygMMDTXGLOGV0941-80-73 21:00:78374Qnkszstw AkaqtuiGMKTTCMKYX3888-63-57 21:00:0012.8[facility] IYXRUCVDFU4387-62-74 21:00:0032.9[facility] NdaonwtYLCLVYSDUD2664-55-72 21:00:00* Test Item Value Reference Range Interpretation Comments MCH (test code = MCH) 31.3 pg 27.0-31.0 H [facility] OuoizhxLGQRKPUKSS1030-97-93 21:00:004.0[facility] HermannHEMATOLOGY 2012-07-17 21:00:0011.7[facility] SfdmgokZGIGNNNGFX5143-25-83 21:00:003.73[facility] QokmzlfNZNVPKAJXT6742-85-88 21:00:0095.0[facility] LylpkxrOSFMIXSZCI7829-72-18 21:00:0035.5[facility] LclmjcdTCXCRJPJCF7195-87-64 21:00:0054.9[facility] XHVVIROFOD8063-11-49 21:00:002.8[facility] TdhglcuWEADVBOWFC9760-71-98 21:00:007.0 [facility] RphnxjsVAHMNCEXDU7121-07-24 21:00:0034.7[facility] HermannHEMATOLOGY 2012-07-17 21:00:001.4[facility] WywywxzXMLUACJIXC6139-67-16 21:00:000.1[facility] XseqqbfKOJTDKHWOS5061-41-05 21:00:000.3[facility] SqubnlrHIDLLPZBPS6487-15-09 21:00:002.2[facility] XpxdfaxLFARZNFDSQ5086-68-51 21:00:000.6[facility] VYTLBWWOWZ6112-49-51 21:00:000.0[facility] VikyrlyKKFYXYGFR0189-38-58 07:22:00 Negative (07/16/2012 01:22:00) [facility] FhwfjjwRWLELPQZMV2573-47-81 06:05:00 Negative mg/dL (07/16/2012 00:05:00) [facility] ZgzkwsiZVHMDGUFLR9168-55-28 06:05:00Negative mg/dL *NA*(07/16/2012 00:05:00) [facility]annURINALYSIS 2012-07-16 06:05:00Negative mg/dL *NA*(07/16/2012 00:05:00) [facility] LERPRANHKV3911-61-32 06:05:001.003[facility] IylhvbhZVNMFYAKNZ7015-26-34 06:05:00 7.0[facility] WuyneatUTNRNHDVFO8263-26-65 06:05:00Clear (07/16/2012 00:05:00) [facility] UkczwxsYHQCOYFUXX4552-10-91 06:05:00Negative (07/16/2012 00:05:00) [facility] EeywwhaUNKQYPDRXA0369-87-44 06:05:00Positive *ABN*(07/16/2012 00:05:00) [facility] UwqojzkEDMNGVFWQA9196-96-22 06:05:00Negative *NA*(07/16/2012 00:05:00) [facility] ZndlmktSLFQWDIDFP8075-74-42 06:05:00<1[facility] HermannURINALYSIS 2012-07-16 06:05:00<1[facility] NvkgwtiBZVWCKFUMN5957-26-99 06:05:00Negative (07/16/2012 00:05:00) [facility] RwauckpDQUQUZIDK9467-41-73 05:53:91505Fthfcpph PewejwlRDZBHIGTU7181-48-45 05:53:0095[facility] LevnfdhXVUCSVSFB3578-84-60 05:53:004.0[facility] HzgrvvgFOUVJIBHC0562-55-93 05:53:0030[facility] [place] [facility] VPTQBVNTS3957-17-63 05:53:008.9[facility] TlqldljPURVBBELJ6321-29-81 05:53:009 [facility] KrxzsnjJRRLTLJSQ3160-39-38 05:53:58893Jvipheoo HermannCHEMISTRY 2012-07-16 05:53:000.8[facility] EisdamkHSHNEXVUT6265-62-44 05:53:48948Rauiftdo OrhfucuLLIRSLXZN6940-28-63 05:53:004.0[facility] XgscfygGFMXJJPIZ7792-19-39 05:53:0092[facility] OmovhgpQBJCGCRBM1880-66-30 05:53:007.2[facility] [place] SPTZFJVCG9167-14-25 05:53:32346Byeodgro HqjwlirVVSJVOIRG6822-10-45 05:53:0098 [facility] TbsdmshDULPJAQKW4589-35-25 05:53:000.2[facility] HermannCHEMISTRY 2012-07-16 05:53:0065[facility] DkxxkogYGDZPMFHJ4458-07-05 05:53:0011[facility] YfcmcjqBNGWHIROY3435-33-52 05:53:0012.0[facility] UlgjpxpVNSSYYFDO8172-78-24 05:53:003.2[facility] VpiajuqZGXWMLLLL1966-48-70 05:53:001.2[facility] QNJHAKEEXR3861-47-50 05:53:001.4[facility] MowpsdnVGJSMGFFXI4404-22-92 05:53:001.6 [facility] IkqkjzqFGSORMNHUH4248-02-14 05:53:004.1[facility] HermannHEMATOLOGY 2012-07-16 05:53:000.6[facility] FhagxhdYZSEHJEHRP6687-68-99 05:53:009.8[facility] BbxzmcjXJMHBEXAHW8644-79-01 05:53:000.1[facility] MrjglbdWGUFEZFIXW1976-65-85 05:53:000.4[facility] YohqxzhUNWYMMVOSZ9167-07-31 05:53:000.0[facility] [place] UCCCEFFIIY4686-09-12 05:53:0039.4[facility] PweqvwgZSXLABHZFW5232-06-39 05:53:00 46.1[facility] CurnsbdFNGUNHPQJE0908-70-54 05:53:20085Hercoqlw HermannHEMATOLOGY 2012-07-16 05:53:0012.9[facility] McsyelpSZHKOYZQHW8171-82-40 05:53:008.4[facility] KnnfpiqPLMSXVVOTT1323-46-96 05:53:0096.2[facility] FygtnbzOREEOPYETF5049-16-51 05:53:003.6[facility] PcjlxihDMYUNWKLAU0745-79-75 05:53:0032.6[facility] [place] JWBSQUCIVN3615-67-33 05:53:00* Test Item Value Reference Range Interpretation Comments MCH (test code = MCH) 31.4 pg 27.0-31.0 H [facility] AvflgguMWMZKIOWWX3782-04-07 05:53:0033.4[facility] HermannHEMATOLOGY 2012-07-16 05:53:003.48[facility] VkdxkibHJJAWNYJEW8885-67-02 05:53:0010.9[facility] HermannBEDSIDE GLUCOSE MRMCNSH6660-36-13 18:07:0068Meazrimt HermannURINALYSIS 2012-07-09 19:30:52Negative mg/dL (07/09/2012 13:30:52) [facility] GHZIKPKEYK8581-32-56 19:30:52Negative *NA*(07/09/2012 13:30:52) [facility] LakeVovbcvoWPVZACQMKD7798-78-23 19:30:52Negative mg/dL *NA*(07/09/2012 13:30:52) [facility] OgmdtciITBTUZUHIJ4238-30-71 19:30:52Negative (07/09/2012 13:30:52) [facility] GdfclboGFKKBJARGD5574-92-48 19:30:52Moderate *ABN*(07/09/2012 13:30:52) [facility] PozttdgAGTKSMJNQH7791-49-02 19:30:52Negative mg/dL *NA*(07/09/2012 13:30:52) [facility] LakeNxcaletDVXDJNJWJT1896-51-65 19:30:52Trace *ABN*(07/09/2012 13:30:52) [facility] LakeWlkjefsSQXYETYAGM3891-71-86 19:30:521.005[facility] [place] [facility] VUIZVCZKDY6203-69-14 19:30:52Clear (07/09/2012 13:30:52) [facility] FPXXWLTTIS7930-83-20 19:30:526.0[facility]annBLOOD BANK YJKEECJ6411-46-64 19:04:00Negative (07/09/2012 13:04:00) [facility] FdsqdziOEHKSQUII7910-75-30 18:58:0012[facility] FuirfntGSODPNZCR2766-71-35 18:58:0012.5[facility] LJLNPKVUM1731-68-28 18:58:001.3[facility] PruihjvAGVQPKQPO1729-82-36 18:58:003.0 [facility] IifwyaxBSJGULEOL2487-00-61 18:58:0073[facility] HermannCHEMISTRY 2012-07-09 18:58:003.8[facility] EynylgfVGJLKJQHT0945-10-07 18:58:009.5[facility] MntdjkmSZLAPTGDP1371-58-80 18:58:43775Bonlajky DwiunwfMVNQZTTLH4459-72-15 18:58:0031[facility] HmipdaaNVIRYSEPE3637-24-53 18:58:36745Amllsbkq [place] HMFEDKNBW7027-54-42 18:58:001.0[facility] LdzoatcNURYNACKU6761-42-10 18:58:005.5 [facility] LipvzvfHNRPSFGWP5963-85-37 18:58:0012[facility] HermannCHEMISTRY 2012-07-09 18:58:0084[facility] PrpkknyZIRTHILSV2143-47-29 18:58:006.8[facility] BvkpqkkALBZZXYOF1378-15-35 18:58:0092[facility] KdurjbuAVYOTLWMQ2168-75-50 18:58:000.2[facility] YnrtbbsHFFGNVYYE0514-63-84 18:58:0044[facility] [place] HSODCSGDW5837-14-74 18:58:0013[facility] IaeuazmTTXYCXMCTH6842-40-52 18:58:000.2 [facility] AhcdojrBOJUSCUDZM5929-48-94 18:58:000.3[facility] HermannHEMATOLOGY 2012-07-09 18:58:004.7[facility] WmuclhuLINYDQNSKV7531-59-52 18:58:0010.2[facility] EahzoykYJPHKJNIXE8016-10-78 18:58:0050.5[facility] MffovrhHNKUYUHIMS8872-85-43 18:58:000.0[facility] SqzftioJBHTTZQFRI9887-56-74 18:58:000.3[facility] [place] HSUCZAWRJD2341-76-48 18:58:001.7[facility] TpprmifDCYDEQEOQT9839-27-85 18:58:001.1 [facility] UppkcsnVRBSBVCHTF8685-55-08 18:58:0034.3[facility] HermannHEMATOLOGY 2012-07-09 18:58:003.35[facility] XjxmpdlRPLBXKPDLR7860-85-91 18:58:0012.9[facility] ZhaggycURKUXSVYZM6563-94-73 18:58:00* Test Item Value Reference Range Interpretation Comments MCH (test code = MCH) 31.7 pg 27.0-31.0 H [facility] GgnrznzIGJGNBWTRY4642-06-01 18:58:53686Ctuwkyst HermannHEMATOLOGY 2012-07-09 18:58:0032.5[facility] GyqplosVELJGXJOIT0530-67-61 18:58:0097.4[facility] AgochsjHMZMDWAIOL0925-43-91 18:58:0032.7[facility] PbwvoekIRSCGKRJEP6902-42-18 18:58:008.9[facility] YaaibdgAHITHJPKEF4838-06-32 18:58:003.3[facility] [place] TFIHAMTQKT4863-18-28 18:58:0010.6[facility] ScdtjrvVKSMZUMLIC2872-10-27 07:50:00 1.009[facility] DpswgvkNJBOPXAGXU2940-31-94 07:50:00Clear (07/08/2012 01:50:00) [facility] XmtaaiqSKXHMFLWSI5085-38-77 07:50:00Positive *ABN*(07/08/2012 01:50:00) [facility] ZvwrwqeYONYTZTVDK8741-27-20 07:50:00Negative (07/08/2012 01:50:00) [facility] VnittdrYQJCNDUWOY4837-23-94 07:50:00Negative (07/08/2012 01:50:00) [facility] AxkqhvrAXQXCDFCDU9097-41-16 07:50:004.0[facility] HermannURINALYSIS 2012-07-08 07:50:00Negative *NA*(07/08/2012 01:50:00) [facility] [place] CGQFNVJWLE5182-14-07 07:50:00Negative mg/dL *NA*(07/08/2012 01:50:00) [facility] VatzlmxBEGVZDWRXT1958-27-64 07:50:00Negative mg/dL *NA*(07/08/2012 01:50:00) [facility] AktqrjjNGYKRARDAA0027-29-42 07:50:00Negative mg/dL (07/08/2012 01:50:00) [facility] DkycpokGQFUGVOXGN0103-47-91 07:50:006.0[facility] JRGAKXIMR3651-36-95 06:55:0083[facility] LqrneibEJPLBWMBV2926-52-40 06:55:003.6 [facility] GvomeijLMKLBIXSG4343-56-09 06:55:06993Ekcjvnqv HermannCHEMISTRY 2012-07-07 06:55:000.9[facility] IpcznwxUIVFSYARN1632-08-91 06:55:0014[facility] XkguqfwZWAJRURFI9714-60-54 06:55:0088[facility] YsthvhhMMCHBBMER5385-89-32 06:55:0067[facility] HkakqdtDUVQTTJPX6383-06-75 06:55:003.5[facility] [place] HFKEQLGWA5879-11-81 06:55:001.2[facility] RvjxpqbZPCVYBTLX9491-13-84 06:55:008.6 [facility] CcnesvnWLZIEUIEW1046-16-05 06:55:0016[facility] HermannCHEMISTRY 2012-07-07 06:55:0012.6[facility] YjvnxggNPSWJYAWJ1070-38-25 06:55:004.1[facility] CjsnstnWGFPBCDJG6425-41-71 06:55:007.6[facility] StflkqbPGCNKQRVC9283-57-96 06:55:51553Tcvogpgk YiqffkgRYBYRKXYJ4812-06-25 06:55:0031[facility] KVQYWDGNH4469-93-78 06:55:000.1[facility] AzhpdmkWSKOAIUPB7849-96-96 06:55:0028 [facility] VkcquxqPGXDUCSSG6122-81-40 06:55:38569Qjdqxcrk HermannHEMATOLOGY 2012-07-07 06:55:61553Hzhmrxwk BlrclezTOFSCMJKHR9327-56-41 06:55:009.5[facility] RsucbrpJJOFJANMWE0551-98-03 06:55:0011.0[facility] WyjbaybGHRYTPWAPJ9642-18-92 06:55:0095.8[facility] VsdydjdGAMFOJESFF8609-28-25 06:55:00* Test Item Value Reference Range Interpretation Comments MCH (test code = MCH) 31.6 pg 27.0-31.0 H [facility] RwzanykJDISMSMQEP7402-39-48 06:55:0033.0[facility] HermannHEMATOLOGY 2012-07-07 06:55:003.3[facility] BkfdmrmKOODLEQYEP7008-19-81 06:55:003.47[facility] HoetvomFXKDWDKRHV6343-35-45 06:55:0013.1[facility] EinxgjrVDOUQZZVEZ3732-77-19 06:55:0033.2[facility] RmspkzsFCWCCUKCBD3224-09-84 06:55:0039.4[facility] [place] IOETBUTNRR2930-28-60 06:55:000.1[facility] WssqeilRLLVGUMARQ5355-66-03 06:55:000.0 [facility] KujkepmYLTVQFYGFG7758-20-81 06:55:0012.7[facility] HermannHEMATOLOGY 2012-07-07 06:55:0044.6[facility] HtimypqWLGDXXSEMU3706-89-93 06:55:002.7[facility] SwmfvdoTKHGOOKIBX9852-84-06 06:55:000.6[facility] RdousgxEPQDNVXBBA7876-51-85 06:55:001.3[facility] XbxabwaQEAPSCTMKS8094-11-30 06:55:001.5[facility] [place] LGLLLEBUOP3949-46-71 06:55:000.4[facility] MaihpolUUTMGNBMU7012-25-05 05:36:00 Negative (07/06/2012 23:36:00) [facility] NlmhoqfPCTYJBSSMO2170-48-76 05:36:00<1 [facility] IkgkcofDKIESQKFUB9275-07-91 05:36:00<1[facility] HermannURINALYSIS 2012-07-07 05:36:00Negative mg/dL *NA*(07/06/2012 23:36:00) [facility] ETSGXJPHUC5425-45-75 05:36:00Negative *NA*(07/06/2012 23:36:00) [facility] MnnzhsuCGRLBRKPLI5304-74-35 05:36:00Negative (07/06/2012 23:36:00) [facility] OrfysigQEGTXDYCBI9005-33-51 05:36:00Negative (07/06/2012 23:36:00) [facility] JlrqwesASIITAMUMC3309-66-91 05:36:00Negative (07/06/2012 23:36:00) [facility] QcyrwirMSAUAQVYXM5926-99-77 05:36:006.0[facility] GpdujmeSUEFXMGEXN6462-07-15 05:36:00Negative mg/dL (07/06/2012 23:36:00) [facility]annURINALYSIS 2012-07-07 05:36:00Negative mg/dL *NA*(07/06/2012 23:36:00) [facility] [place] MJZRGGDQFJ0657-43-84 05:36:00Yellow *NA*(07/06/2012 23:36:00) [facility] MHTHIAJBZK5451-46-52 05:36:00Clear (07/06/2012 23:36:00) [facility] JHXHYFMNPI5856-52-94 05:36:001.006[facility] NcktwovLLROHTMOZX3552-11-72 14:30:00 Yellow *NA*(05/31/2012 08:30:00) [facility] EzwxcsjVFROSUCZRC8242-95-48 14:30:00 Clear (05/31/2012 08:30:00) [facility] UfmoaxuIPLBHVWXLA0588-29-10 14:30:001.016 [facility] UznphveZTDQKRUJIY6332-89-47 14:30:00Negative mg/dL (05/31/2012 08:30:00) [facility] PemqypcDHIRGCSYAH5757-14-76 14:30:00Negative mg/dL *NA*(05/31/2012 08:30:00) [facility] OimslldHOLVBLCEUN8143-89-52 14:30:005.0 [facility] VmrqqpbAQJQREKRAN4247-01-35 14:30:002[facility]IN[facility]IS 2012-[facility]-31 14:30:00<1[facility] XuqfreoRFAGDDHENY4181-33-82 14:30:00Few /LPF *NA*(05/31/2012 08:30:00) [facility] RfiqnpbILEPLIBQSX3053-10-25 14:30:00Negative *NA*(05/31/2012 08:30:00) [facility] OxfltchPMYTVJBXCP7054-51-93 14:30:00Negative mg/dL *NA*(05/31/2012 08:30:00) [facility] KmywsxbBCXQATGUFZ9471-25-95 14:30:00 Negative (05/31/2012 08:30:00) [facility] IrmhpdsELPCMOLFCP4406-88-45 14:30:00 Negative (05/31/2012 08:30:00) [facility] QqvbdepIUAARBIGYZ0445-82-26 14:30:00 Small *ABN*(05/31/2012 08:30:00) [facility] OdnrofbUJZSRNLYIO3414-77-17 14:30:00 Occasional /LPF *NA*(05/31/2012 08:30:00) [facility] YtmoedvFYHSHIOOS4862-57-99 14:03:00<0.5[facility] AvjbypaTKEZUKLHK5363-53-40 14:03:00<0.02[facility] KQRRNCBMT7447-06-22 14:03:0017[facility] BtrfxyrSOZQQGCEW9757-49-69 14:03:002.9 [facility] GyavalfNOCMZNKSJ1523-40-04 14:03:000.2[facility]annCHEMISTRY 2012-05-31 14:03:001.5[facility] PnyuuidPRPUJYJUF9239-45-25 14:03:0086[facility] HdrrbzySYBJLHPLH8428-19-41 14:03:0061[facility] LojyrtsILTEEQLKT9612-58-12 14:03:007.2[facility] EfoufoqLVJSVNKPY2683-08-67 14:03:0083[facility] ISFRQNTKD4910-41-51 14:03:0014[facility] NegyjedFWDGKOYNE0667-61-19 14:03:004.3 [facility] QyexkohVJAEXVXKE4151-30-19 14:03:0011.5[facility]annCHEMISTRY 2012-05-31 14:03:009.0[facility] AbbddxyVHLFCXADC2593-23-33 14:03:0028[facility] LfkmxnlMWKTFNARK9824-45-67 14:03:15643Vqmflwca BoifltwXMGCPWEOE5870-90-53 14:03:54019Xnddqxqr YvaohynFWERYRRUF7583-41-72 14:03:000.9[facility] ZZGDVKIJL7721-85-01 14:03:003.5[facility] OokprewWSNXCXRPV6468-16-80 14:03:42759 [facility] KsowxsrVJRKWMPBO4813-74-43 14:03:0013[facility]annCHEMISTRY 2012-05-31 14:03:0074[facility] XnwiwhjZEXEMLVDZ5295-19-34 14:03:00<0.7[facility] MrrnmmrFPZPHNVFYG2674-41-86 14:03:000.93[facility] GihqtqwCIYHDOTEZO2079-77-93 14:03:00* Test Item Value Reference Range Interpretation Comments PT (test code = PT) 12.7 s 12.0-14.7 N [facility] VlucyuhAQELGGJFBU1115-32-98 14:03:0012.7[facility]annHEMATOLOGY 2012-05-31 14:03:00* Test Item Value Reference Range Interpretation Comments MCH (test code = MCH) 31.9 pg 27.0-31.0 H [facility] DhkvconYNOJYAPGMO9596-59-32 14:03:0033.0[facility]annHEMATOLOGY 2012-05-31 14:03:003.83[facility] BvibvchCNZUIHWPVD1479-16-90 14:03:0012.2[facility] WesjoetCJPKIOTDFO4905-15-82 14:03:0037.0[facility] MekchcsCBLSWWJRZN1751-38-15 14:03:0096.6[facility] IeogstvYGRBJIMMZD4981-49-99 14:03:005.7[facility] ASXXWANNUU4833-88-38 14:03:19364Ppjqzoze ZdhrsakHSEXGQXUFY6393-95-55 14:03:009.6 [facility] JysjokoGIKFADHXQH3405-41-58 14:03:000.5[facility]annHEMATOLOGY 2012-05-31 14:03:003.3[facility] UjjbrmeJUNBQWTRMH7344-35-85 14:03:0058.7[facility] SbwmlziUYKWZPVGNE5801-05-30 14:03:001.9[facility] GsnbppyWSKBIARQDH6825-81-53 14:03:0033.6[facility] NwcghgaILCGDZJLBU5586-61-72 14:03:000.3[facility] ZXVRRAIKJN9791-15-99 14:03:005.5[facility] BzmootmOHHTVQLXHW2143-64-22 14:03:001.7 [facility] SctfemtSRGYCIAWYR0330-17-02 14:03:000.0[facility]annHEMATOLOGY 2012-05-31 14:03:000.1[facility] RsqchdgBIMFCWQZI4873-73-43 20:43:000.2[facility] TbhceofTYBWUNUAA3855-86-77 20:43:0017[facility] MatpgpaTFZMDAOHO4480-17-52 20:43:0077[facility] OasldiuBFQYBWGVD4528-56-21 20:43:006.9[facility] REBSDQEMU2601-94-14 20:43:0049[facility] NuhmrfmEEYDDZVZF2350-69-72 20:43:0095 [facility] HvkfmafDFIUYSGVZ1946-24-48 20:43:008.6[facility]annCHEMISTRY 2012-04-08 20:43:003.9[facility] BzmfmawDXBCFIPZR4256-15-17 20:43:0028[facility] NtrxdswPYDCYIYAF0826-32-42 20:43:33763Ixnugklt OumswhsPWYCBLRJV4981-11-66 20:43:0085[facility] ScefnovGKREVPCDN2393-65-54 20:43:000.8[facility] EIXIYYZCI2153-01-80 20:43:004.2[facility] OmuvbhgEPOFCDOZF8171-09-46 20:43:57314 [facility] KjbczrtCYUVWJBDS7735-90-54 20:43:0015[facility]annCHEMISTRY 2012-04-08 20:43:001.3[facility] SblvekoGMNSPLBGQ7376-20-74 20:43:003.0[facility] TdcfyjuDUNMWBTQS5320-95-94 20:43:0015.2[facility] TnuuzdjJQEXFGUCU6759-55-45 20:43:0019[facility] QubplorHKPVPKDOYS6263-79-28 20:43:000.0[facility] YSCSOACIDD0897-97-15 20:43:000.1[facility] HyykubqVYLYCDXDFX1413-06-85 20:43:000.4 [facility] TcbkqkqRWZHLBAXOX8971-40-67 20:43:002.4[facility]annHEMATOLOGY 2012-04-08 20:43:000.6[facility] NpnowoxOWCGLHWOFZ7353-14-22 20:43:003.1[facility] SjybqjaTIYMPXZFXR6900-29-10 20:43:001.6[facility] UnbheahMRKFTDQQSX4575-87-47 20:43:008.6[facility] PhviwxeCSQRTDIGJB9261-00-01 20:43:0052.7[facility] VTOKALWWKU9944-31-72 20:43:0035.0[facility] CjejvldSDXQQMYWGF6752-38-24 20:43:00 257[facility] ZsdzuitEMWOBJIVBM3746-72-99 20:43:0012.9[facility]annHEMATOLOGY 2012-04-08 20:43:009.2[facility] WctvznoFFGFOEYZOR0099-20-69 20:43:0011.9[facility] QqsrzaaUGQQHYDOJR7006-77-80 20:43:003.64[facility] XbuxrtjPRAWILCCFW2682-67-38 20:43:0035.3[facility] PwbklsmTBZTCGHBWX1832-72-94 20:43:0097.2[facility] AMYOYNFSGD2577-08-26 20:43:00* Test Item Value Reference Range Interpretation Comments MCH (test code = MCH) 32.6 pg 27.0-31.0 H [facility] KrblgloSEDCIWLNZG2669-81-05 20:43:0033.6[facility]annHEMATOLOGY 2012-04-08 20:43:004.5[facility] IlrmpjhYMOFEOGNA3452-68-67 03:46:00See Note 4(01/24/2012 22:46:00) [facility] IvcxaisKIYTMKEFF4349-00-60 03:46:00Negative *NA*(01/24/2012 22:46:00) [facility] SirtoojIDTAHMWXJ7362-03-87 03:46:00Negative *NA*(01/24/2012 22:46:00) [facility] BkjtvrqEKNEXQRQC7356-96-93 03:46:00Negative *NA*(01/24/2012 22:46:00) [facility] UkokrycGDKVWFHOG1948-11-42 03:46:00Negative *NA*(01/24/2012 22:46:00) [facility] HtsfhfiTSZDJYKBS7576-63-98 03:46:00Negative *NA*(01/24/2012 22:46:00) [facility] YojhwbxMNUDXFWLO5453-81-26 03:46:00Negative *NA*(01/24/2012 22:46:00) [facility] LvqgvdhWJCKZCLNV1168-78-75 03:46:00Positive *ABN*(01/24/2012 22:46:00) [facility] LkhahxePUMOXERYWW1464-83-72 03:46:00 Negative (01/24/2012 22:46:00) [facility] IpyvfhiQKAMBBAJLV7639-55-50 03:46:00 Negative *NA*(01/24/2012 22:46:00) [facility] JzmyfrzBGJARIQUNN5788-14-93 03:46:00Negative mg/dL *NA*(01/24/2012 22:46:00) [facility] HermannURINALYSIS 2012-01-25 03:46:00Occasional /LPF *NA*(01/24/2012 22:46:00) [facility] FEYWAERRTH3480-79-02 03:46:00Trace *ABN*(01/24/2012 22:46:00) [facility] SHHZIDSYCT7058-07-74 03:46:00Negative (01/24/2012 22:46:00) [facility] JBGVEEWKYB3375-59-09 03:46:002[facility] OvxnnfxBEMOWSQLMZ7654-86-92 03:46:003 [facility] BsdiypfSQTJIGIYZX6627-86-88 03:46:00Negative mg/dL *NA*(01/24/2012 22:46:00) [facility] RylsfdcNUHAMVTOUS1212-88-92 03:46:00Negative mg/dL (01/24/2012 22:46:00) [facility] QwodghkDEANMYCBIV4616-81-33 03:46:006.0[facility] OgcpzvcDKMYYBWAKT1435-73-24 03:46:00Clear (01/24/2012 22:46:00) [facility] UoyoyepMQUPGKLALJ4349-77-18 03:46:001.002[facility] HermannBEDSIDE GLUCOSE TESTING 2012-01-25 03:45:30172Asfcvtuv FezshtvNQMWXNRTD4406-81-82 02:46:003.1[facility] UsrsxojPYWBOPQLB1553-02-83 02:46:001.4[facility] ZzsxqboEEEDJBOLB8793-59-17 02:46:0014[facility] RqwwbktJLACDARTO0489-61-64 02:46:0013.5[facility] PGXJJMFFI7633-90-58 02:46:0076[facility] GnowboeQIQQWMIXT2477-12-70 02:46:007.3 [facility] QcxissuFJOSIMGER1114-30-46 02:46:0045[facility] HermannCHEMISTRY 2012-01-25 02:46:0095[facility] OabozwoPPTNRUAUA9345-15-16 02:46:000.2[facility] VfyiupeEAGBIEUTG9685-49-97 02:46:0079[facility] MoxiyarEZOQFIHMF6713-50-33 02:46:0011[facility] TyapnxqQDXPKXSHK9682-04-13 02:46:000.8[facility] HKTAQFKXK6550-35-34 02:46:23623Rriliihl VddzaxyLAEQAZVZI5206-54-36 02:46:0026 [facility] KrqgtawPVFCYQGSR9966-20-92 02:46:35277Okollxrr HermannCHEMISTRY 2012-01-25 02:46:003.5[facility] QrabflaADNKXGQUV4161-75-20 02:46:009.1[facility] EflsnmkVRXJWXNPB1320-29-48 02:46:004.2[facility] SgoyytzKYYJQUVAEZ5105-63-22 02:46:000.4[facility] AuttsqaMSJKXLCPHT8471-89-90 02:46:004.1[facility] TDOKYGRWFL0932-71-38 02:46:002.2[facility] IjbdnkgCKGNXJAWXO0205-36-04 02:46:001.4 [facility] UukrlpkDVWMTNQAXC8982-90-00 02:46:008.5[facility] HermannHEMATOLOGY 2012-01-25 02:46:000.0[facility] SjxmhtjFXRNJQQIJH7661-44-07 02:46:000.4[facility] TdsluzmRPBVSUYACZ7809-24-05 02:46:000.2[facility] RqgozzdHQKXGANONL8804-17-43 02:46:0034.7[facility] FropzkcJYGXBBXPXZ1991-90-03 02:46:0052.3[facility] ZFVUTXRXMW3918-23-08 02:46:003.72[facility] JcjpingTSAXOUSEOQ0232-70-75 02:46:00 95.6[facility] BfbtyuaARGUTXCFAU1639-11-31 02:46:0035.6[facility] HermannHEMATOLOGY 2012-01-25 02:46:0011.8[facility] XhyftjnGEQNKTRENH6749-69-54 02:46:00* Test Item Value Reference Range Interpretation Comments MCH (test code = MCH) 31.7 pg 27.0-31.0 H [facility] SbvtnwmPRTTYFZVBJ5061-78-05 02:46:0033.2[facility] HermannHEMATOLOGY 2012-01-25 02:46:0014.1[facility] UatnfsyNBJKIEFQVT3733-95-27 02:46:004.2[facility] KpzwgkmCNFLQZWVND7951-27-44 02:46:36102Dxgswgvp PfaldqbZSKZUQTSPH0829-87-84 02:46:009.9[facility] HermannBEDSIDE GLUCOSE AOSBYGB5684-91-20 02:32:0091[facility] HermannBEDSIDE GLUCOSE NMOGMVG4616-20-26 12:48:0065[facility] HermannCHEMISTRY 2012-01-02 10:05:0011.5[facility] WhdyivfFBGCJQKBD6923-49-08 10:05:004[facility] HvjjpazXLYUAMLBU5357-48-62 10:05:000.6[facility] IttgvjlRQVISDAOD5590-02-63 10:05:008.3[facility] MkjloxxKQOQCZSHN3113-08-25 10:05:0026[facility] GUFKKSKVC4641-93-86 10:05:0070[facility] UyssmpdKOLEVKDCH8841-16-49 10:05:12659 [facility] YnfmwqnVBZGUAECK8431-34-61 10:05:003.5[facility] HermannCHEMISTRY 2012-01-02 10:05:60124Jwnohjgi MlrxgdvOREQOSOVGG7457-70-11 10:05:000.0[facility] XxyveblJBLDWBXCRA2149-97-28 10:05:000.2[facility] XdooevfTXYNOYPZRK4385-89-10 10:05:000.1[facility] YiwyrjzZAIOUCXYNK6676-95-83 10:05:001.6[facility] VFLVOMOTQZ9428-24-15 10:05:000.8[facility] XifmftfRZELITBVIT9454-16-51 10:05:000.6 [facility] IvwosmnLSDDKWVYCM1717-65-42 10:05:004.9[facility]annHEMATOLOGY 2012-01-02 10:05:0063.1[facility] GvwsuugHUUPJERGWI4612-53-82 10:05:007.1[facility] YsvfdaxRSXOSPOOID1498-48-54 10:05:00Normal (01/02/2012 05:05:00) [facility] WwjzyutADQCFIVNIA8676-19-93 10:05:0024.1[facility] OpniojxTBDHWQJGVH4205-70-22 10:05:00Normal (01/02/2012 05:05:00) [facility] VnzlevwOFYEZGNXHP7577-57-12 10:05:001.08[facility] YpxrpihMVHIRVBHGL8139-82-28 10:05:00* Test Item Value Reference Range Interpretation Comments PT (test code = PT) 14.2 s 12.0-14.7 N [facility] GjyhaueUYJZAOODOU6106-38-22 10:05:00* Test Item Value Reference Range Interpretation Comments PTT (test code = PTT) 32.6 s 22.9-35.8 N [facility] AujkkrzYRHCQFTMTJ6145-18-92 10:05:0028.1[facility] HermannHEMATOLOGY 2012-01-02 10:05:009.5[facility] TxfubhfTQFCTIYMVO4948-98-33 10:05:00* Test Item Value Reference Range Interpretation Comments MCH (test code = MCH) 31.8 pg 27.0-31.0 H [facility] AgfhmifGJJKHROBZT0673-55-46 10:05:0094.3[facility] HermannHEMATOLOGY 2012-01-02 10:05:0033.8[facility] MvibouqFACVBUKWDM2154-77-83 10:05:58914Prbvjkwq MdjysfvLGJHGHADAD0119-17-48 10:05:0016.1[facility] FhngnepVHTGTTTLHV5228-42-61 10:05:0010.4[facility] XqhxrjcHPCIYQAWIK2520-18-33 10:05:002.99[facility] QQRCMEEGZL5012-78-72 10:05:002.6[facility] GgcviipVQLBHMGPCD0841-21-15 05:15:00 10.7[facility] ItkhcavGYUXFRSDZH1566-58-95 23:30:0010.4[facility] HermannBLOOD BANK ASSNTEF4596-28-29 13:51:00Negative (01/01/2012 08:51:00) [facility] BQUSDEMEKG2619-74-29 23:55:0010.1[facility] CbkzlogWPLMHBXXQU5299-34-88 23:55:00 209[facility] RrtqfmtUZBKIMVEZE0189-09-49 23:55:0032.1[facility] HermannHEMATOLOGY 2011-12-31 23:55:0016.5[facility] XqclyvlBMVRPSJNOJ0686-12-94 23:55:0094.1[facility] MqxtlaaWLZFDVFQTW2370-46-56 23:55:0033.8[facility] FneybjxLZYCOCFLYC9615-20-80 23:55:00* Test Item Value Reference Range Interpretation Comments MCH (test code = MCH) 31.8 pg 27.0-31.0 H [facility] ZgsdydaAWXRNEFBUD2174-92-53 23:55:003.3[facility] HermannHEMATOLOGY 2011-12-31 23:55:003.42[facility] UrzkyvrJQQZVRGMBH8429-36-18 23:55:000.2[facility] XungvjyHOYMGHGIHE2997-03-03 23:55:000.2[facility] ZemotixHBMQYAZSUK9307-25-09 23:55:000.0[facility] TblxkcwUJQMUIRLIZ2285-77-42 23:55:001.2[facility] TEUAHGDPUE5837-74-16 23:55:004.5[facility] XvhyssvSSJKHIVNVM6785-59-61 23:55:000.8 [facility] JiyvqwfUGFHKITOPS2441-93-41 23:55:0036.3[facility] HermannHEMATOLOGY 2011-12-31 23:55:0052.7[facility] BfgrvpuDDXUBJCXQS3531-75-38 23:55:005.7[facility] LgljkqfQILPLRIXEE7756-04-14 23:55:001.7[facility] HermannSTOOL TFGDV0620-18-51 05:13:00Positive *ABN*(12/31/2011 00:13:00) [facility] UuzqlsySWOJSEMSN5076-62-46 04:17:0010[facility] JzjeuxyUFOUVALCH4985-42-62 04:17:004.5[facility] JEUJEIXRR3378-71-69 04:17:0046[facility] DxpluboEKDBTGUMC4829-89-18 04:17:000.2 [facility] NksdimlMZJWQQJHY1597-50-63 04:17:0023[facility] HermannCHEMISTRY 2011-12-31 04:17:003.8[facility] WiiguknFKYIAHXZE2956-79-14 04:17:58555Dceufqee EqhllbeTFIGUNMOM7916-49-49 04:17:007.9[facility] ZjqgaxxQVTJNQMVM3785-27-58 04:17:0094[facility] VcozfawZYCGLVCSS0552-08-39 04:17:0091[facility] SNONVSNEO2454-93-84 04:17:009.3[facility] DybmnlsSAUQPKJMO7598-05-20 04:17:0014 [facility] JesizgvXWBHPOGEW5665-42-99 04:17:71315Zmjqmcif HermannCHEMISTRY 2011-12-31 04:17:000.8[facility] UxwzkpnGZEKXVBWL8091-96-93 04:17:0013.8[facility] YxygackVSVEBTHIY7977-99-47 04:17:0018[facility] UalcyohJVAOWXHYV5103-10-26 04:17:001.3[facility] HctdrupAJDZQFIGR9640-96-75 04:17:003.4[facility] AXOWNYYWF6682-49-07 04:17:16134Mebamsre YlatrlvHOMBGTETSE1364-07-22 04:17:0016.3 [facility] NavaytkMRUJHSCWCU8379-09-86 04:17:35860Asexdzbd HermannHEMATOLOGY 2011-12-31 04:17:009.9[facility] ZktogqvJILAWLLGXW5781-25-21 04:17:0038.6[facility] ZjweexfWOQACUDXJM9007-63-36 04:17:0094.4[facility] GwwcxkaKYIRJPQHWA4871-45-39 04:17:00* Test Item Value Reference Range Interpretation Comments MCH (test code = MCH) 31.3 pg 27.0-31.0 H [facility] KulbamjSOWOIVDFMS3630-60-77 04:17:0033.2[facility] HermannHEMATOLOGY 2011-12-31 04:17:006.5[facility] ZzrebblARZJMSWHWP3809-37-20 04:17:0012.8[facility] UtcdwanYJAYMIVNXC6490-73-17 04:17:004.09[facility] AahfmsbNQPTTQMUHK9873-84-15 04:17:000.0[facility] MglakmfWGTJGQKXTU7897-88-12 04:17:000.4[facility] GPFJJYKFAH1499-80-71 04:17:000.1[facility] TszxvtfYIPPKWAMHZ0172-82-83 04:17:00 58.4[facility] GvyzupyIKVXINEGZA9144-66-65 04:17:002.1[facility] HermannHEMATOLOGY 2011-12-31 04:17:006.1[facility] ZeqwobgFNNAJWFKSF1738-87-21 04:17:0033.0[facility] TcvymwqPCJBVLPXBL8090-85-73 04:17:000.4[facility] SfmzmziUXARLYSYQN2097-44-85 04:17:003.8[facility] YnkttrrOBBHWBDNET5438-60-02 04:17:002.1[facility] ECGFCQEETO3096-93-01 04:17:00Negative *NA*(12/30/2011 23:17:00) [facility] HjjmnqjAMOMYIPJWS8194-25-44 04:17:001[facility] XwlqqphJUZLNUGFJE4664-95-42 04:17:004[facility] WjzbilxDSLMUFKEVP7527-93-51 04:17:00Negative (12/30/2011 23:17:00) [facility] YtcwuwdVPLRRUFRLJ1603-57-29 04:17:00Negative (12/30/2011 23:17:00) [facility] NzkwqrxHPIWLMYHPT0099-13-07 04:17:00Negative (12/30/2011 23:17:00) [facility] PmiwuhuVNSMRIFDLA4347-33-94 04:17:00Occasional /LPF *NA*(12/30/2011 23:17:00) [facility] VtodaukOZXHYBNZHJ8503-19-89 04:17:001 [facility] RqfvrwnGFMCNCUXNF8993-47-78 04:17:00Negative mg/dL *NA*(12/30/2011 23:17:00) [facility] JwtbjnqZIMOVSZOSU8320-94-70 04:17:005.0[facility] AZTPCGARBR2771-45-69 04:17:00Negative mg/dL (12/30/2011 23:17:00) [facility] NgmjzeqGQMSFYUJGH2707-32-71 04:17:00Negative mg/dL *NA*(12/30/2011 23:17:00) [facility] BhtyqenVCFGSTNQBC4062-11-93 04:17:00Negative *NA*(12/30/2011 23:17:00) [facility] IqqqdprSJCSSHVDFC5056-98-19 04:17:00Clear (12/30/2011 23:17:00) [facility] PgzmswxRYWJKKGCYM3227-76-43 04:17:001.019[facility] HermannURINALYSIS 2011-10-16 06:36:001[facility] TqkbiviACCZHBKOQX3524-60-06 06:36:006[facility] TmrmnzfOVBJGAJXVT7517-27-93 06:36:003[facility] IhatlnhZJKPSNAFBX7780-10-35 06:36:00Few /LPF *NA*(10/16/2011 01:36:00) [facility] CnthrggSNHLGLEHWL7322-76-96 06:36:00Moderate *ABN*(10/16/2011 01:36:00) [facility] HermannURINALYSIS 2011-10-16 06:36:00Occasional /LPF *NA*(10/16/2011 01:36:00) [facility] AJXIGXTRQW1115-72-67 06:36:00Negative mg/dL *NA*(10/16/2011 01:36:00) [facility] AspoobqDNPCAVRNIX7886-72-92 06:36:00Negative *NA*(10/16/2011 01:36:00) [facility] SmvsqqjCHOTJFXYRW2163-93-53 06:36:00Negative (10/16/2011 01:36:00) [facility] JnwdkokCXBVHUVCGK6281-88-36 06:36:00Negative mg/dL *NA*(10/16/2011 01:36:00) [facility] DsehijlQBRTMPDCPB2689-74-57 06:36:00Negative mg/dL (10/16/2011 01:36:00) [facility] JbpzzglSJWJTTIDQD8347-99-98 06:36:00Negative (10/16/2011 01:36:00) [facility] WxlehwpRMGWPWYTFP7439-73-54 06:36:00Slight *ABN*(10/16/2011 01:36:00) [facility] JzdlhimSSFYDZPCQI1922-40-02 06:36:001.019[facility] LAIBECISQY7017-98-89 06:36:006.0[facility] ZjzdyruWMFGRYEFC2685-41-01 06:33:0014.7 [facility] CmdahqrVJPUOEWJY1077-59-51 06:33:000.7[facility] HermannCHEMISTRY 2011-10-16 06:33:20152Jdcvipzl ZmobmglHBCIMAPVF4588-10-53 06:33:0014[facility] HrtfymwVFLVTIYVD7094-60-75 06:33:0091[facility] QdecbmbVFRVENSGZ2121-10-02 06:33:0023[facility] HeeasafXBDOIVBKV3883-77-84 06:33:008.9[facility] TBAQEABPF8058-48-11 06:33:003.7[facility] ZdzqlypVTQHKOZXC7580-75-17 06:33:18978 [facility] GlwuuzzMFEXVJBKSM4869-87-29 06:33:0040.3[facility] HermannHEMATOLOGY 2011-10-16 06:33:004.6[facility] EdwnvvnUKFAAMRQTD1818-39-96 06:33:0016.2[facility] RcgepllRJCRMHYDJN1268-17-20 06:33:0010.2[facility] GiryyggHKJYKEGNEC1519-06-77 06:33:00* Test Item Value Reference Range Interpretation Comments MCH (test code = MCH) 30.8 pg 27.0-31.0 N [facility] GtsxabwSCWZIDAHON9416-82-33 06:33:0033.4[facility] HermannHEMATOLOGY 2011-10-16 06:33:77634Cmixkgxt LbqhezaJWICYDOTRB5425-89-38 06:33:004.37[facility] BrfylinDBMLSWQOVO5652-55-45 06:33:0013.4[facility] YlvrmsdZGJJULLCVD1390-12-22 06:33:0092.2[facility] MnzsavyDTRQXCRRLU3910-01-87 06:33:001.9[facility] XNZPILQASY6210-45-02 06:33:000.1[facility] BhrskumQAGMHMZEEM8423-18-26 06:33:002.2 [facility] RdsbxoaQZLWCGKFOC1443-76-55 06:33:000.4[facility] HermannHEMATOLOGY 2011-10-16 06:33:0047.8[facility] UwwmxdpKELQTRXEKX2916-16-57 06:33:009.0[facility] EmikxhwTEPJYUWESJ7084-51-41 06:33:0040.1[facility] RwbrlntBGDOAZBQII4926-36-05 06:33:002.8[facility] MrzybdyIDSYMLOHIM1797-29-76 06:33:000.3[facility] DVFSZTYMXP8200-50-19 06:33:000.0[facility] SjtoxqnKCPAUZCZF0451-39-63 09:45:0070 [facility] XnqdhnlQKJCAPVCU5010-25-94 09:45:000.9[facility] HermannCHEMISTRY 2011-10-10 09:45:0010[facility] NwazswtUBQWVSVDD1479-04-03 09:45:0023[facility] TnhgtyvWVTFTTWDR2557-80-01 09:45:008.8[facility] KkuwyeuRYHHWYDDM2294-62-15 09:45:54865Rzcpjcif ObqxjyfDZXZGXUUN9426-72-19 09:45:004.0[facility] CRWWBLKXF1559-54-31 09:45:93146Oimltwbq TssvlrnOYBCVMLES4976-95-50 09:45:0016.0 [facility] IwkaozxOLAQYFKFTF4136-07-20 09:45:001.3[facility] HermannHEMATOLOGY 2011-10-10 09:45:000.7[facility] PxxivzdTKYPULZSCP6954-61-60 09:45:000.2[facility] VqvwxnnUKDNLNGAZB3863-31-32 09:45:002.1[facility] ZijagmeLYEOATEGYO8512-93-20 09:45:000.0[facility] IcgjghqAAJUFZTYPK1671-00-17 09:45:000.1[facility] MLQMIBHRQW8578-83-99 09:45:003.3[facility] YznkjwwSTYLLWIJUM4564-66-04 09:45:005.5 [facility] ZyiuzylKKQEUMVNTM1732-49-61 09:45:0055.8[facility] HermannHEMATOLOGY 2011-10-10 09:45:0034.7[facility] XzdqhhhEGAJLAQPKB9879-26-19 09:45:94125Jmuwvfnt DwarvtcJTMRQLDYXF7119-63-40 09:45:0015.7[facility] GcljzyoCNLTMBIPMQ7309-89-59 09:45:0033.7[facility] VfpvjizMYSVJGOBPP6191-49-18 09:45:0010.1[facility] CAEJMKXTPZ7601-05-01 09:45:0035.6[facility] PefmfctQVNEMGQEUW0095-12-85 09:45:00 3.8[facility] LpcawvfCCFDZVFUJF0330-96-85 09:45:0091.6[facility] HermannHEMATOLOGY 2011-10-10 09:45:00* Test Item Value Reference Range Interpretation Comments MCH (test code = MCH) 30.9 pg 27.0-31.0 N [facility] KazmtekXSEZOXXWDI7974-52-79 09:45:0012.0[facility] HermannHEMATOLOGY 2011-10-10 09:45:003.89[facility] HermannBEDSIDE GLUCOSE YGQKTVF0399-78-95 02:12:0095[facility] HermannBLOOD BANK SZUIFVD4938-98-05 15:34:00Negative (10/09/2011 10:34:00) [facility] QaumtvnDSNPLTADL1179-60-17 15:34:006[facility] ShkkjztNLWPNVNCU9083-04-52 15:34:73060Efepvqbq DhjhrsvEVLYJWDRK9152-10-44 15:34:0015.6[facility] CnpvfunFTDGDMYDE3694-55-88 15:34:0057[facility] XTMQKSGJS7105-61-67 15:34:0012[facility] KrcbgtbPSAYOXCPT0295-09-60 15:34:23276 [facility] IojcrgzWXEKZJAPL7999-80-12 15:34:13137Vvhpcwwi HermannBLOOD BANK DTAQIUL3263-78-10 14:01:00Product available 2(10/09/2011 09:01:00) [facility] OvdfivrJPVOBSZVVP6561-32-26 12:34:008.5[facility] ZjaefgvNMTWFEGOWN1139-74-27 12:34:0026.1[facility] ZodrlnuSAFTJKZUN6284-99-25 06:35:0011.4[facility] YWESZJRGZ0368-55-72 06:35:38886Exnrygih XhqbvtnGWEJQIGTH5671-15-78 06:35:001.0 [facility] PumsnckMUNMUTWQJ6402-73-39 06:35:009[facility] PznxehkQOIIKEUEV7429-87-86 06:35:003.4[facility] ZyekamnZXSTOLHEW5717-15-88 06:35:0090[facility] IHNDKVQZT7971-70-36 06:35:008.5[facility] RelhdynTROVZJAAQ9767-61-42 06:35:0028 [facility] HhwzsuvDJPRMDVDJ2792-89-03 06:35:44229Opikkyie HermannHEMATOLOGY 2011-10-09 06:35:80215Qjtiiiux SvbrdyzXNTKHMRWYI2354-87-93 06:35:0015.1[facility] JeunkqiVJQIRFIRYK0078-11-67 06:35:009.5[facility] BchedhrMDAXQBUILA4150-64-89 06:35:0033.3[facility] UpsvpnuVHRVTCQDUD0324-41-71 06:35:004.1[facility] FDANYLQAMR2291-15-87 06:35:003.11[facility] GeoqcnuZLTSGLXPAO2750-74-12 06:35:00 28.1[facility] VtbuveuICYCFLEDAJ8967-67-78 06:35:0090.4[facility] HermannHEMATOLOGY 2011-10-09 06:35:009.4[facility] BvzgeiqWHEVSTMXVP8362-95-46 06:35:00* Test Item Value Reference Range Interpretation Comments MCH (test code = MCH) 30.1 pg 27.0-31.0 N [facility] FwusrnpJCRRVKGDOQ1361-26-12 06:35:0045.7[facility] HermannHEMATOLOGY 2011-10-09 06:35:0041.6[facility] TfzttwhGMGPIQXCLF6117-26-42 06:35:001.7[facility] JatwjsuHGQUZPJDVT8023-19-58 06:35:000.5[facility] SggmjprPKPODREKSU6106-24-37 06:35:002.1[facility] VbayyxoJZETFJECKJ8445-00-13 06:35:0010.1[facility] CAPNTKEUSJ3357-73-65 06:35:001.9[facility] DznzejgIUWCEASDCV2976-20-81 06:35:000.1 [facility] NrmhvtuHKUNAYADYC5888-24-12 06:35:000.0[facility] HermannHEMATOLOGY 2011-10-09 06:35:000.4[facility]
[2019-10-18] MEDS: ONDANSETRON HCL INJ 2MG/ML 2ML 2 MG/ML VIAL IV PRN ×5 (02:00→20:00)
[2019-10-18] MEDS: SODIUM CHLORIDE 0.9% 1000ML 1,000 ML IV SCH ×2 (02:00→13:19)
[2019-10-18] MEDS: HYDROMORPHONE 1MG/1ML INJ IV PRN ×5 (02:28→20:00)
[2019-10-18 04:54] LABS: BACTERIA,URINE FEW /HPF; BILIRUBIN,URINE NEGATIVE (NEGATIVE); CLARITY,URINE CLEAR (CLEAR); COLOR,URINE YELLOW (YELLOW); EPITHELIAL CELLS,URINE FEW /LPF; KETONES,URINE NEGATIVE (NEGATIVE); LEUKOCYTE ESTERASE ,URINE NEGATIVE (NEGATIVE); NITRITE,URINE NEGATIVE (NEGATIVE); PROTEIN,URINE DIPSTICK NEGATIVE (NEGATIVE); RBC,URINE 0-5 /HPF (0-5); URINE UROBILINOGEN 0.2 mg/dL (0.2 - 1); WBC,URINE (MAN) 0-5 /HPF (0-5)
--- NOTE | 2019-10-18 06:50 | NUR ---
patient soapstoner light, requesting pain and nausea meds. admin as ordered and documented in eMAR
--- NOTE | 2019-10-18 10:27 | NUR ---
pt asks for prn dilaudid and zofran informed that she was given last dose at 0650 and the medications are q4h so she would have to wait till 1050
[2019-10-18 11:50] VITALS: BP 139/91
[2019-10-18 14:51] VITALS: BP 139/91
[2019-10-18] MEDS: TIZANIDINE HCL 4 MG TAB PO SCH ×2 (15:00→21:23)
[2019-10-18] MEDS: GABAPENTIN 400 MG CAP PO SCH ×2 (15:00→21:23)
[2019-10-18] MEDS ORDERED: LEVOFLOXACIN 750MG/D5W 150ML 150 ML IV SCH (15:00)
[2019-10-18] MEDS: CYCLOBENZAPRINE HCL 10 MG TAB PO SCH ×2 (15:15→21:23)
[2019-10-18 15:59] VITALS: BP 162/97
[2019-10-18] MEDS: DICYCLOMINE HCL 10 MG CAP PO SCH (16:30)
[2019-10-18 17:07] LABS: BASOPHILS % 1.1 % (0.0-1.0); EOSINOPHILS # (AUTO) 0.2 (0.0-0.4); HEMATOCRIT 33.8 % (34.2-44.1); HEMOGLOBIN 10.5 g/dL (12.0-16.0); LYMPHOCYTES # (AUTO) 2.4 (1.0-3.2); LYMPHOCYTES % 62.9 % (18.0-39.1); MEAN CORPUSCULAR HEMOGLOBIN 29.4 pg (28-32); MEAN CORPUSCULAR HGB CONC 31.1 g/dL (31-35); MEAN CORPUSCULAR VOLUME 94.7 fL (81-99); MONOCYTES # (AUTO) 0.3 (0.2-0.8); NEUTROPHILS # (AUTO) 0.9 (2.1-6.9); NEUTROPHILS % 23.5 % (38.7-80.0); PLATELET COUNT 385 x10e3/uL (140-360); RED BLOOD COUNT 3.57 x10e6/uL (3.6-5.1); RED CELL DISTRIBUTION WIDTH 15.5 % (11.7-14.4)
[2019-10-18 17:26] LABS: ALANINE AMINOTRANSFERASE 54 IU/L (0-55); ALBUMIN 3.1 g/dL (3.5-5.0); ALBUMIN/GLOBULIN RATIO 1.1 (0.8-2.0); ALKALINE PHOSPHATASE 104 IU/L (40-150); AMYLASE 57 U/L (25-125); ANION GAP 10.2 mmol/L (8-16); BLOOD UREA NITROGEN < 5 mg/dL (7-26); CALCIUM 8.6 mg/dL (8.4-10.2); CARBON DIOXIDE 31 mmol/L (22-29); CHLORIDE 104 mmol/L (98-107); CREATININE, SERUM 0.68 mg/dL (0.57-1.11); EST GLOMERULAR FILTRATION RATE > 60 ML/MIN (60-); GLUCOSE 79 mg/dL (74-118); LIPASE 128 U/L (8-78); POTASSIUM 3.2 mmol/L (3.5-5.1); SODIUM 142 mmol/L (136-145)
[2019-10-18 17:27] LABS: BUN/CREATININE RATIO 7 (6-25)
--- NOTE | 2019-10-18 17:59 | NUR ---
PICC LINE IN PROGRESS
[2019-10-18] MEDS ORDERED: NON-FORMULARY MEDICATION (Acetaminophen With Codeine (Tylenol With Codeine #4 Tablet) 1 TA PO SCH (18:00)
[2019-10-18] MEDS ORDERED: DIATRIZOATE MEGL/DIATRIZOA SOD 30 ML BTL PO ONE (18:28)
--- NOTE | 2019-10-18 19:02 | NUR ---
RECEIVED BEDSIDE SHIFT REPORT FROM PREVIOUS NURSE. CALL LIGHT WITHIN REACH. PATIENT IN BED.
--- NOTE | 2019-10-18 19:38 | Diagnostic Imaging Report ---
EXAMINATION: CHEST XRAY LINE PLACEMENT INDICATION: ^PICC PLACEMENT ^[id number] ^1819 ^Y COMPARISON: 10/17/2019. FINDINGS: TUBES and LINES: Interval placement of a left upper extremity PICC with distal tip projected on the cavoatrial junction. LUNGS: Lungs are well inflated. Lungs are clear. There is no evidence of pneumonia or pulmonary edema. PLEURA: No pleural effusion or pneumothorax. HEART AND MEDIASTINUM: The cardiomediastinal silhouette is unremarkable. BONES AND SOFT TISSUES: No acute osseous lesion. Soft tissues are unremarkable. UPPER ABDOMEN: No free air under the diaphragm. IMPRESSION: Interval placement of a left upper extremity PICC with distal tip projected on the cavoatrial junction. Signed by: Dr. Eh Gonzalez M.D. on 10/18/2019 7:35 PM
[2019-10-18 19:55] VITALS: BP 139/89
[2019-10-18] MEDS: LEVOFLOXACIN 750MG/D5W 150ML 150 ML IV SCH (20:00)
[2019-10-18 20:16] VITALS: BP 139/89
--- NOTE | 2019-10-18 20:30 | NUR ---
PATIENT WAS TAKEN DOWN VIA WHEELCHAIR TO RADIOLOGY FOR CAT SCAN
--- NOTE | 2019-10-18 20:36 | NUR ---
RADIOLOGY CALLED AND SAID THE PATIENT IS ALLERGIC TO IODINE AND TO CONFIRM WITH THE DOCTOR IF THE DOCTOR WANTS THE PATIENT TO HAVE CAT SCAN WITH CONTRAST. CALLED AND TALKED TO DR. POWELL AND HE SAID TO DO A STEROID PREP WITH PREDNISONE FOR 12 TO 24 HOUR AND TO CALL RADIOLOGY TO FIND OUT THE STEROID PREP
--- NOTE | 2019-10-18 20:40 | NUR ---
CALLED RADIOLOGY AND THEY SAID STEROID PREP IS 12 HOURS AND GIVE PREDNISONE 50 MG 12 HOURS PRIOR TO CAT SCAN WITH CONTRAST, 2 HOUR PRIOR GIVE ANOTHER 50 MG OF PREDNISONE PO. THEN, ONE HOUR PRIOR GIVE BENADRYL 50 MG PO AND ZANTAC 150 MG PO, PEPCID 20 MG IV, OR TAGAMET 300 MG PO. ALSO, TO CONFIRM WITH DR. POWELL IF THIS IS OKAY WITH HIM AND WHAT TO GIVE WITH THE BENADRYL. CALLED DR. POWELL AND HE SAID DO THE STEROID PREP WITH PREDNISONE AND GIVE THE PEPCID IV AND BENADRYL [address] POWELL SAID TO HAVE THE CAT SCAN IN THE MORNING.
[2019-10-18] MEDS: ZOLPIDEM TARTRATE 10 MG TAB PO SCH (21:23)
[2019-10-18] MEDS: MIRTAZAPINE 15 MG TAB PO SCH (21:23)
[2019-10-18] MEDS: TEMAZEPAM 15 MG CAP PO SCH (21:23)
[2019-10-18] MEDS: DIAZEPAM 5 MG TAB PO SCH (21:23)
[2019-10-18] MEDS: PREDNISONE 20 MG TAB PO SCH (21:31)
[2019-10-18] MEDS: METRONIDAZOLE 500MG/NS 100ML 100 ML IV SCH (21:32)
[2019-10-18] MEDS: DIPHENOXYLATE/ATROPINE TAB PO PRN (21:47)
[2019-10-19] VITALS (9 sets, daily range): BP systolic 102–141; BP diastolic 59–89
[2019-10-19] MEDS: ONDANSETRON HCL INJ 2MG/ML 2ML 2 MG/ML VIAL IV PRN ×5 (03:16→23:22)
[2019-10-19] MEDS: HYDROMORPHONE 1MG/1ML INJ IV PRN ×4 (03:16→19:04)
[2019-10-19] MEDS: DIAZEPAM 5 MG TAB PO SCH ×3 (05:10→22:58)
[2019-10-19] MEDS: METRONIDAZOLE 500MG/NS 100ML 100 ML IV SCH ×3 (05:19→22:58)
--- NOTE | 2019-10-19 06:58 | NUR ---
GAVE BEDSIDE SHIFT REPORT TO ONCOMING NURSE. CALL LIGHT WITHIN REACH. PATIENT IN BED. HOURLY ROUNDING DONE.
[2019-10-19] MEDS ORDERED: PREDNISONE 20 MG TAB PO SCH (07:00)
[2019-10-19] MEDS: DICYCLOMINE HCL 10 MG CAP PO SCH ×3 (07:30→18:26)
[2019-10-19] MEDS ORDERED: FAMOTIDINE 20 MG/2 ML VIAL IV ONE (08:00)
[2019-10-19] MEDS ORDERED: DIPHENHYDRAMINE HCL 25 MG CAP PO ONE (08:00)
[2019-10-19] MEDS ORDERED: DIATRIZOATE MEGL/DIATRIZOA SOD 30 ML BTL PO ONE ×2 (08:02→11:41)
[2019-10-19] MEDS ORDERED: SODIUM CHLORIDE 0.9% 50ML 50 ML ONE (08:03)
[2019-10-19] MEDS ORDERED: IOPAMIDOL 370 MG/ML 200 ML INFUS..BTL INJ ONE (08:03)
[2019-10-19] MEDS ORDERED: SODIUM CHLORIDE 0.9% 500ML 1,000 ML ONE (08:27)
[2019-10-19] MEDS: SODIUM CHLORIDE 0.9% 1000ML 1,000 ML IV SCH ×3 (08:27→21:06)
[2019-10-19] MEDS: PREDNISONE 20 MG TAB PO SCH (08:27)
[2019-10-19] MEDS: GABAPENTIN 400 MG CAP PO SCH ×3 (08:28→22:58)
[2019-10-19] MEDS: CYCLOBENZAPRINE HCL 10 MG TAB PO SCH ×3 (08:28→22:58)
[2019-10-19] MEDS: CITALOPRAM HYDROBROMIDE 20 MG TAB PO SCH ×2 (08:28→11:25)
[2019-10-19] MEDS: TIZANIDINE HCL 4 MG TAB PO SCH ×3 (08:29→22:58)
[2019-10-19] MEDS ORDERED: POTASSIUM CHLORIDE 20 MEQ TAB CR PO ONE ×2 (09:00→11:45)
--- NOTE | 2019-10-19 09:10 | NUR ---
pt given meds for ct prep with small sip of water, explained to pt she is npo for ct and can eat, drink and take regular meds after ct. pt vebalizes understanding
--- NOTE | 2019-10-19 11:03 | Diagnostic Imaging Report ---
EXAM: CT Abdomen and Pelvis with intravenous contrast INDICATION: Fever, abdominal pain, diarrhea. COMPARISON: CT abdomen/pelvis 10-09-2019. KUBs 10-17-2019. TECHNIQUE: Abdomen and pelvis were scanned utilizing a multidetector helical scanner from the lung base to the pubic symphysis after administration of IV and oral contrast. Coronal and sagittal reformats were obtained. IV CONTRAST: 100 cc of Isovue-370 ORAL CONTRAST: Gastrografin COMPLICATIONS: None RADIATION DOSE: Total DLP: 787 mGy*cm Dose modulation, iterative reconstruction, and/or weight based adjustment of the mA/kV was utilized to reduce the radiation dose to as low as reasonably achievable. FINDINGS: LOWER THORAX: There is a 4 mm subpleural nodule in the right middle lobe. There are mild patchy groundglass opacities within the left lower lobe. HEPATOBILIARY: Diffuse mild hepatic steatosis. No focal liver lesion. No biliary ductal dilation. Status post cholecystectomy. SPLEEN: No splenomegaly. PANCREAS: No focal masses or ductal dilatation. ADRENALS: No adrenal nodules. KIDNEYS/URETERS: No hydronephrosis, stones, or solid mass lesions. PELVIC ORGANS/BLADDER: Status post hysterectomy. Calcified pelvic phleboliths. PERITONEUM / RETROPERITONEUM: No free air or fluid. LYMPH NODES: No lymphadenopathy. VESSELS: Unremarkable. GI TRACT: No evidence of bowel obstruction. There is apparent mild wall thickening within portion of the ascending colon, as seen on series 2, image 55, distal descending colon on image 63, and rectum on image 82. There is a small bowel-small bowel anastomosis in the left upper quadrant. Normal appendix. BONES AND SOFT TISSUES: Right lower quadrant implanted pain pump with lead overlying the L3 posterior paraspinal soft tissues. No acute osseous abnormality. Postoperative findings of posterior decompression and fusion at L4-S1. IMPRESSION: Scattered mild wall thickening within the colon and rectum, suggestive of infectious or inflammatory proctocolitis in the setting of diarrhea. Diffuse mild hepatic steatosis. Mild patchy ground glass opacities in the left lower lobe may be secondary to atelectasis or infectious process. A 4 mm subpleural solid nodule within the right middle lobe, which does not require follow-up in a low risk patient. If the patient has a high risk for malignancy, an optional follow-up chest CT may be considered in 12 months. Signed by: Dr. Miles Choi MD on 10/19/2019 10:59 AM
--- NOTE | 2019-10-19 14:35 | NUR ---
pt in bed sleeping. pt had to be called numerous times and shaken to be awakened. pt reassessed for pain, pt states pain is decreasing. notified pt of next pain medication
--- NOTE | 2019-10-19 16:30 | NUR ---
report given to sen
--- NOTE | 2019-10-19 19:30 | NUR ---
received report from day nurse. patient is resting in the bed. bed is in the lowest position and call light is within reach. will continue to monitor patient.
--- NOTE | 2019-10-19 20:25 | Progress Note ---
DATE: 10/19/2019 CONSULTANTS: Dr. Lobo with GI. CHIEF COMPLAINT: Severe abdominal pain and diarrhea. SUBJECTIVE: The patient is seen resting in bed, she reports abdominal pain with not much improvement. Status post CT of abdomen and pelvis this morning. Reports has been having frequent diarrhea. She denies any fever, chills, nausea, or vomiting. She is tolerating clear liquid diet. No chest pain or shortness of breath. PHYSICAL EXAMINATION: VITAL SIGNS: Temperature 97.5, pulse is 67, respirations 16, blood pressure 141/72, pulse ox is 94% on room air. GENERAL: No acute distress. HEENT: Normocephalic. CARDIOVASCULAR: Regular rate and rhythm. LUNGS: Clear with auscultation. ABDOMEN: Soft with diffuse generalized pain to palpation. MUSCULOSKELETAL: Moves all extremities. SKIN: Dry and intact. PSYCH: Calm. LABORATORY DATA: Lipase 128, magnesium 1.7. Stool pending. IMAGING: CT abdomen and pelvis shows scattered mild wall thickening within the colon and rectum suggestive of infectious or inflammatory proctocolitis in the setting of diarrhea. Mild patchy ground-glass opacities in the left lower lobe, may be secondary to atelectasis or infectious process. IMPRESSION: 1. Severe abdominal pain due to recurrent colitis. CT abdomen and pelvis noted with proctocolitis. Continue on Levaquin and Flagyl. Bentyl and Dilaudid for pain. GI has been consulted. Continue clear liquids. ID also on the case. 2. Depression and anxiety. Resume home dose of Valium. 3. Hypokalemia. Replace and recheck. 4. Elevated lipase. Lipase level 128. CT abdomen with no focal masses or ductal dilation at the pancreas noted. We will continue clear liquids. 5. Chronic back pain. Resume Flexeril and pain management as needed. 6. Insomnia. Continue Ambien p.r.n. 7. Deep vein thrombosis prophylaxis. SCDs due to anemia. 8. Plan is to continue Flagyl and Levaquin, further recommendation per GI. Dictated by JOSHUA Douglas Robynching Jaun Acuna MD MY/MODL /[id number] The patient was seen and examined on 10/19/19. Agree with the findings and plan as documented by JOSHUA Castano. MOLINA
[2019-10-19] MEDS: LEVOFLOXACIN 750MG/D5W 150ML 150 ML IV SCH (20:43)
[2019-10-19] MEDS: TEMAZEPAM 15 MG CAP PO SCH (22:58)
[2019-10-19] MEDS: MIRTAZAPINE 15 MG TAB PO SCH (22:58)
[2019-10-19] MEDS: ZOLPIDEM TARTRATE 10 MG TAB PO SCH (22:58)
[2019-10-19] MEDS: DIPHENOXYLATE/ATROPINE TAB PO PRN (23:04)
[2019-10-20] VITALS (8 sets, daily range): BP systolic 115–131; BP diastolic 68–82
--- NOTE | 2019-10-20 00:41 | Consultation ---
DATE OF CONSULTATION: HISTORY OF PRESENT ILLNESS: This is a 43-year-old white female, comes in with fever, chills, body ache, nausea, diarrhea, not feeling well. The patient was recently in the hospital here and was discharged, coming with the above complaints. The patient was discharged on October 15. She has history of acute myeloid leukemia, history of rhabdomyolysis. The patient has history of obesity, cervical cancer, cholecystectomy, hysterectomy, and hernia repair. She has history of Dilaudid pain pump, splenectomy, and abdominal hernia. When she was here back on October 08, she was having fever and chills. She had CT scan which was negative. Blood culture was negative. COVID-19, which was negative. LABORATORY DATA: White count is 3.77, hemoglobin 10, and hematocrit of 33. Sodium 142, potassium 3.2, and creatinine of 0.68. PHYSICAL EXAMINATION: GENERAL: Currently, alert and oriented, does not seem to be in acute distress. VITAL SIGNS: Stable, currently afebrile HEENT: She is not icteric. NECK: Supple. CHEST: Clear bilateral. COR: S1 and S2. No S3, S4, or murmur. ABDOMEN: Soft. Bowel sounds present. No tenderness. EXTREMITIES: No edema. SKIN: No rash. MEDICATIONS: She is currently on Valium, Dilaudid. She is on metronidazole, gabapentin, Bentyl, prednisone 50 mg daily, and levofloxacin. IMAGING DATA: The patient had a CT of her abdomen pelvis on October 18, which showed scattered mild wall thickening of the colon suggestive of infectious or inflammatory pancolitis in the sitting of diarrhea. IMPRESSION AND PLAN: 1. Colitis. Agree with Flagyl and Levaquin. She is also showing signs of improvement. There is no fever. 2. History of leukemia. 3. History of cholecystectomy, appendectomy, hysterectomy, and hernia repair. Agree with IV fluid. Agree with supportive care. We will follow with you. MD LEONEL Bentley/DOROTHY /[id number]
[2019-10-20] MEDS: HYDROMORPHONE 1MG/1ML INJ IV PRN ×5 (03:13→17:41)
[2019-10-20] MEDS: METRONIDAZOLE 500MG/NS 100ML 100 ML IV SCH ×3 (05:30→23:39)
[2019-10-20] MEDS: DIAZEPAM 5 MG TAB PO SCH ×3 (05:40→23:40)
[2019-10-20 05:46] LABS: ANION GAP 11.5 mmol/L (8-16); BLOOD UREA NITROGEN < 5 mg/dL (7-26); CALCIUM 8.6 mg/dL (8.4-10.2); CARBON DIOXIDE 27 mmol/L (22-29); CHLORIDE 107 mmol/L (98-107); EST GLOMERULAR FILTRATION RATE > 60 ML/MIN (60-); GLUCOSE 117 mg/dL (74-118); POTASSIUM 3.5 mmol/L (3.5-5.1); SODIUM 142 mmol/L (136-145)
[2019-10-20 05:56] LABS: BUN/CREATININE RATIO 8 (6-25)
--- NOTE | 2019-10-20 06:37 | NUR ---
patient is resting in the bed, bed is in the lowest position and call light is within reach. no distress noted.
--- NOTE | 2019-10-20 07:00 | NUR ---
Received bedside shift report from off going night nurse. Patient in stable condition, no s/s of distress noted. No pain voiced. IV fluids infusing. Bed in lowest position and locked. Call light within reach.
[2019-10-20] MEDS: DICYCLOMINE HCL 10 MG CAP PO SCH ×3 (07:48→17:18)
[2019-10-20] MEDS: CYCLOBENZAPRINE HCL 10 MG TAB PO SCH ×3 (07:49→23:38)
[2019-10-20] MEDS: GABAPENTIN 400 MG CAP PO SCH ×3 (07:49→23:39)
[2019-10-20] MEDS: TIZANIDINE HCL 4 MG TAB PO SCH ×3 (07:50→23:39)
[2019-10-20] MEDS: PREDNISONE 20 MG TAB PO SCH (07:50)
[2019-10-20] MEDS: ONDANSETRON HCL INJ 2MG/ML 2ML 2 MG/ML VIAL IV PRN ×2 (07:52→12:10)
--- NOTE | 2019-10-20 09:20 | NUR ---
CALL TO [facility]ANT[facility] EPSTEIN. PT IS A 2 DAY OBS. PT STILL HAVING DIARRHEA AND ABDOMINAL PAIN.
[2019-10-20] MEDS: CITALOPRAM HYDROBROMIDE 20 MG TAB PO SCH (09:34)
--- NOTE | 2019-10-20 14:04 | NUR ---
Notified about the patient lab results being C-Diff positive. Notified Dr. Ju Lobo as well along with Dr. Moore. New order for vancomycin PO.
--- NOTE | 2019-10-20 14:14 | NUR ---
PROGRESS NOTE PATIENT WITH DIARRHEA C DIFF POS [id number]
[2019-10-20] MEDS: SODIUM CHLORIDE 0.9% 1000ML 1,000 ML IV SCH (14:30)
--- NOTE | 2019-10-20 14:49 | NUR ---
REPORT GIVEN TO MYRNA NEELY- PATIENT OFF THE UNIT @ 1445 VIA WHEELCHAIR. PATIENT IN STABLE CONDITION, NO S/S OF DISTRESS NOTED. NO PAIN VOICED.
[2019-10-20] MEDS: VANCOMYCIN 250MG/5ML ORAL SOLN PO SCH ×2 (17:18→23:40)
[2019-10-20] MEDS: LACTOBACILLUS ACIDOPHILUS CAPSULE PO SCH (17:18)
[2019-10-20] MEDS: ONDANSETRON HCL 4 MG ORAL DISINTEGRATING TAB PO PRN ×2 (17:42→23:40)
--- NOTE | 2019-10-20 18:49 | Progress Note ---
DATE: SUBJECTIVE: Ms. Mccracken is feeling better. She had 27 episodes of diarrhea yesterday. PHYSICAL EXAMINATION: GENERAL: Currently alert and oriented. VITAL SIGNS: Stable, afebrile. HEENT: She is not icteric. NECK: Supple. CHEST: Clear. HEART: S1 and S2. No S3, S4, or murmurs. ABDOMEN: Soft. LABORATORY DATA: Her C. difficile came back positive. IMPRESSION: Clostridium difficile colitis, present on admission. I will switch her to oral vancomycin. Discontinue levofloxacin. Keep her on still isolative precaution. Discontinue Imodium. Can use Pepto-Bismol for diarrhea. We will reassess in the morning. Answered all her questions. MD LEONEL Bentley/DOROTHY /[id number]
--- NOTE | 2019-10-20 22:56 | Progress Note ---
DATE: 10/20/2019 CONSULTANTS: 1. Dr. Lobo with GI. 2. Dr. Moore with ID. CHIEF COMPLAINT: Severe abdominal pain and diarrhea. SUBJECTIVE: The patient reports has had multiple episodes of diarrhea overnight, watery. Abdominal pain is mildly improved. She is tolerating clear liquids. She denies any chest pain, chills, fever, or shortness of breath. PHYSICAL EXAMINATION: VITAL SIGNS: Temperature 98.3, pulse is 64, respirations 16, blood pressure 129/78, and pulse ox 98% on room air. GENERAL: No acute distress. HEENT: Normocephalic. CARDIOVASCULAR: Regular rate and rhythm. LUNGS: Decreased breath sounds. ABDOMEN: Soft with tenderness to palpation. MUSCULOSKELETAL: Moves all extremities. SKIN: Dry. PSYCH: Calm. LABORATORY DATA: Sodium 142, potassium 3.5, BUN is less than 5. Estimated GFR is greater than 60. Lipase 115. CRP pending. Stool positive for C diff. IMPRESSION: 1. Recurrent colitis with Clostridium difficile positive stool. Started on p.o. vancomycin and continue on Flagyl. GI and ID on the case. 2. Hypokalemia. Replaced. 3. Depression and anxiety. Resume home dose of Valium. 4. Elevated lipase. Improving at 115. CT abdomen was noted. We will continue on clear liquids. 5. Chronic back pain. Resume Flexeril and pain management as needed. 6. Insomnia. Continue Ambien p.r.n. 7. Deep venous thrombosis prophylaxis. SCDs due to chronic anemia. PLAN: Continue current treatment. Vancomycin p.o. added for C diff. Contact isolation. Dictated by JOSHUA Douglas Karina Acuna MD MY/MODL /[id number]
[2019-10-20] MEDS: ZOLPIDEM TARTRATE 10 MG TAB PO SCH (23:38)
[2019-10-20] MEDS: TEMAZEPAM 15 MG CAP PO SCH (23:39)
[2019-10-20] MEDS: MIRTAZAPINE 15 MG TAB PO SCH (23:39)
[2019-10-21] VITALS (9 sets, daily range): BP systolic 101–152; BP diastolic 53–81
[2019-10-21] MEDS: HYDROMORPHONE 1MG/1ML INJ IV PRN ×2 (02:05→06:44)
[2019-10-21] MEDS: VANCOMYCIN 250MG/5ML ORAL SOLN PO SCH ×4 (06:30→23:58)
[2019-10-21] MEDS: DIAZEPAM 5 MG TAB PO SCH ×3 (06:30→22:00)
[2019-10-21] MEDS: METRONIDAZOLE 500MG/NS 100ML 100 ML IV SCH ×3 (06:30→22:00)
--- NOTE | 2019-10-21 06:44 | NUR ---
RECEIVED BEDSIDE SHIFT REPORT FROM OFF GOING NURSE. PATIENT IS RESTING IN BED. NO ACUTE DISTRESS NOTED AT THIS TIME. CALL LIGHT WITHIN REACH. BED IN THE LOWEST POSITION.
[2019-10-21] MEDS: TIZANIDINE HCL 4 MG TAB PO SCH ×3 (09:04→22:00)
[2019-10-21] MEDS: GABAPENTIN 400 MG CAP PO SCH ×3 (09:04→22:00)
[2019-10-21] MEDS: LACTOBACILLUS ACIDOPHILUS CAPSULE PO SCH ×2 (09:04→17:00)
[2019-10-21] MEDS: CITALOPRAM HYDROBROMIDE 20 MG TAB PO SCH (09:04)
[2019-10-21] MEDS: CYCLOBENZAPRINE HCL 10 MG TAB PO SCH ×3 (09:04→22:00)
[2019-10-21] MEDS: DICYCLOMINE HCL 10 MG CAP PO SCH ×3 (09:04→17:00)
[2019-10-21] MEDS: SODIUM CHLORIDE 0.9% 1000ML 1,000 ML IV SCH (09:05)
[2019-10-21] MEDS: ONDANSETRON HCL 4 MG ORAL DISINTEGRATING TAB PO PRN ×2 (09:09→13:18)
--- NOTE | 2019-10-21 11:54 | Progress Note ---
DATE: SUBJECTIVE: The patient is seen and evaluated. Available labs and notes reviewed. Discussed with Dr. Moore. Please refer to chart for more information. of the patient is in her room. REVIEW OF SYSTEMS: Remains with diarrhea. No nausea, vomiting. Also complained that her buttock area is kind of ulcerated from excessive diarrhea. No nausea, vomiting, fever, chills, chest pain, shortness of breath. PHYSICAL EXAMINATION: VITAL SIGNS: Temperature 97.3, pulse 94, respiration 20, and blood pressure 115/74. GENERAL: Alert and oriented, no acute distress. CV: S1-S2. CHEST: Equal expansion. Clear to auscultation. No acute distress. ABDOMEN: Soft, obese, nontender. HEENT: Moist. No pallor. No JVD. EXTREMITIES: Moves all, weak. No acute distress. MEDICATIONS: Medication list reviewed. From Infectious Disease point of view, the patient is on Flagyl, IV vancomycin, p.o. lactobacillus. LABORATORY STUDIES: White count 3.77, hemoglobin 10.5, platelet 385. Sodium 142, potassium 3.5, creatinine 0.6. Serology; C diff positive on 10/19/2019. Microbiology; stool for ova and parasite pending. RADIOLOGY STUDIES: She had a CT of abdomen and pelvis on 10/18, it showed scattered mild wall thickening within the colon and rectum suggestive of infection or inflammatory proctitis in the setting of edema with mild patchy ground-glass opacities in left lower lobe maybe secondary to atelectasis or infectious process with 4 mm subpleural solid nodule within the right middle lobe, which does not require followup in low risk patient. ASSESSMENT AND PLAN: Clostridium difficile, the patient remains with diarrhea. Continue with vancomycin p.o., Flagyl and lactobacillus. Leukocytopenia. CRP pending. Lipase is 115. Also, the patient's coronavirus was not detected on 10/17/2019. Continue to monitor the patient. Clinically follow with the labs. Thank you for this dictation. Discussed with Dr. Moore. Refer to chart for more information. Dictated by Devante Zimmerman PA-C (Al) Corie Moore MD /MODL /[id number]
[2019-10-21] MEDS: ACETAMINOPHEN/CODEINE 300MG - 30MG TAB PO PRN ×2 (12:59→20:32)
--- NOTE | 2019-10-21 15:10 | Progress Note ---
DATE: 10/21/2019 CONSULTANTS: 1. Dr. Lobo with GI. 2. Dr. Moore with ID. CHIEF COMPLAINT: Severe abdominal pain and diarrhea. SUBJECTIVE: The patient reports having 15 times diarrhea this morning. She reports that she is unable to tolerate her breakfast and not wanting to the eat lunch. We will continue on a bland diet. She denies any chest pain, shortness of breath, fever, or chills. PHYSICAL EXAMINATION: VITAL SIGNS: Temperature 97.5, pulse is 100, respirations 19, blood pressure 152/73, pulse ox is 96% on room air. GENERAL: No acute distress. HEENT: Normocephalic, atraumatic. CARDIOVASCULAR: Regular rate and rhythm. LUNGS: Clear to auscultation. ABDOMEN: Soft and tender to palpation. MUSCULOSKELETAL: Moves all extremities. SKIN: Dry and intact. PSYCH: Calm. LABORATORY DATA: Lipase 115. CRP pending. IMPRESSION: 1. Colitis with C diff positive. Continue on Flagyl, p.o. vancomycin, and lactobacillus. She refused Questran. 2. Hypokalemia. Replaced. 3. Depression and anxiety. Resume home dose of Valium. 4. Elevated lipase. Trending down, lipase is 115. CT abdomen was noted. Diet advanced to GI soft. 5. Chronic back pain. Pain management as needed. 6. Insomnia. Continue Ambien p.r.n. 7. Deep vein thrombosis prophylaxis. SCDs. PLAN: To continue antibiotics, advance diet as tolerated. We will try to wean off pain medications. Dictated by JOSHUA Douglas Karina Acuna MD MY/MODL /[id number]
[2019-10-21] MEDS: CHOLESTYRAMINE 4 GM PACKET PO SCH (17:00)
--- NOTE | 2019-10-21 19:04 | NUR ---
Bedside shift report given to oncoming nurse. Patient is resting in bed. No acute distress noted at this time. Call light within reach. Bed in the lowest position.
--- NOTE | 2019-10-21 20:30 | NUR ---
PATIENT IS RESTING IN BED IN STABLE CONDITION, NO SIGNS OF RESPIRATORY DISTRESS NOTED. IV FLUIDS ARE RUNNING AT ORDERED RATE AND PATIENT VOICES PAIN AT A LEVEL OF 10 AND WAS MEDICATED ORDERED. BED IS IN LOWEST POSITION, BOTH SIDE RAILS ARE UP, PATIENT'S PERSONAL HEATING PAD IS PLACED OVER ABDOMEN. CALL LIGHT IS WITHIN EASY REACH, WILL CONTINUE TO MONITOR.
[2019-10-21] MEDS: ZOLPIDEM TARTRATE 10 MG TAB PO SCH (22:00)
[2019-10-21] MEDS: MIRTAZAPINE 15 MG TAB PO SCH (22:00)
[2019-10-21] MEDS: TEMAZEPAM 15 MG CAP PO SCH (22:00)
[2019-10-22] VITALS (7 sets, daily range): BP systolic 113–121; BP diastolic 72–78
[2019-10-22] MEDS: SODIUM CHLORIDE 0.9% 1000ML 1,000 ML IV SCH ×2 (01:30→15:02)
[2019-10-22] MEDS: ACETAMINOPHEN/CODEINE 300MG - 30MG TAB PO PRN (02:47)
[2019-10-22] MEDS: DIAZEPAM 5 MG TAB PO SCH ×3 (05:52→21:55)
[2019-10-22] MEDS: VANCOMYCIN 250MG/5ML ORAL SOLN PO SCH ×3 (05:52→18:54)
[2019-10-22] MEDS: METRONIDAZOLE 500MG/NS 100ML 100 ML IV SCH ×3 (05:52→21:55)
[2019-10-22] MEDS: ONDANSETRON HCL 4 MG ORAL DISINTEGRATING TAB PO PRN (05:56)
[2019-10-22 07:19] LABS: BASOPHILS # (AUTO) 0.1 (0.0-0.1); BASOPHILS % 0.9 % (0.0-1.0); EOSINOPHILS # (AUTO) 0.1 (0.0-0.4); EOSINOPHILS % 1.3 % (0.0-6.0); HEMATOCRIT 29.4 % (34.2-44.1); HEMOGLOBIN 8.8 g/dL (12.0-16.0); LYMPHOCYTES # (AUTO) 2.9 (1.0-3.2); LYMPHOCYTES % 43.9 % (18.0-39.1); MEAN CORPUSCULAR HEMOGLOBIN 29.4 pg (28-32); MEAN CORPUSCULAR HGB CONC 29.9 g/dL (31-35); MEAN CORPUSCULAR VOLUME 98.3 fL (81-99); MONOCYTES # (AUTO) 0.5 (0.2-0.8); MONOCYTES % 7.9 % (4.4-11.3); NEUTROPHILS % 45.6 % (38.7-80.0); PLATELET COUNT 339 x10e3/uL (140-360); RED BLOOD COUNT 2.99 x10e6/uL (3.6-5.1); RED CELL DISTRIBUTION WIDTH 16.5 % (11.7-14.4)
--- NOTE | 2019-10-22 07:25 | NUR ---
PATIENT ASSISTED TO THE RESTROOM AND BACK TO BED. IV FLUID INFUSING ORDERED. RED SCRATCHES TO RIGHT FOOT. BED IN LOWER POSITION, CALL LIGHT AT REACH.
[2019-10-22 07:47] LABS: ALANINE AMINOTRANSFERASE 31 IU/L (0-55); ALBUMIN 2.8 g/dL (3.5-5.0); ALBUMIN/GLOBULIN RATIO 1.2 (0.8-2.0); ALKALINE PHOSPHATASE 83 IU/L (40-150); ANION GAP 10.4 mmol/L (8-16); BLOOD UREA NITROGEN 9 mg/dL (7-26); BUN/CREATININE RATIO 15 (6-25); CALCIUM 7.8 mg/dL (8.4-10.2); CARBON DIOXIDE 27 mmol/L (22-29); CHLORIDE 107 mmol/L (98-107); CREATININE, SERUM 0.62 mg/dL (0.57-1.11); EST GLOMERULAR FILTRATION RATE > 60 ML/MIN (60-); GLUCOSE 85 mg/dL (74-118); POTASSIUM 3.4 mmol/L (3.5-5.1); SODIUM 141 mmol/L (136-145)
[2019-10-22] MEDS: DICYCLOMINE HCL 10 MG CAP PO SCH ×2 (08:00→11:30)
[2019-10-22] MEDS: GABAPENTIN 400 MG CAP PO SCH ×2 (09:16→15:02)
[2019-10-22] MEDS: CITALOPRAM HYDROBROMIDE 20 MG TAB PO SCH (09:16)
[2019-10-22] MEDS: CHOLESTYRAMINE 4 GM PACKET PO SCH ×2 (09:16→17:45)
[2019-10-22] MEDS: CYCLOBENZAPRINE HCL 10 MG TAB PO SCH ×2 (09:16→15:03)
[2019-10-22] MEDS: LACTOBACILLUS ACIDOPHILUS CAPSULE PO SCH ×2 (09:16→17:45)
[2019-10-22] MEDS: TIZANIDINE HCL 4 MG TAB PO SCH ×2 (09:17→15:03)
--- NOTE | 2019-10-22 11:11 | NUR ---
PATIENT REQUESTED AND RECEIVED A NEW PAIR OF YELLOW SOCKS. OUT OF BED TO CHAIR WITH CALL LIGHT AT REACH.
--- NOTE | 2019-10-22 11:58 | Progress Note ---
DATE: SUBJECTIVE: The patient is seen and evaluated. Discussed with the in her room. Discussed with the nurse. The patient's speech is a little slow. However, the patient is that she just woke up and nothing is wrong and at the same time I discussed with the nurse. The patient just received some pain medication but seems to be alert and oriented, responds appropriately. Moves all extremities. Discussed with the in her room. REVIEW OF SYSTEMS: Still has diarrhea, but has improved in numbers, it was 13 yesterday and today she says she had about 6 or 7 bowel movements since last night and the agrees that the number has gone down and the patient has improved clinically. Otherwise, no nausea, vomiting, fever, chills, chest pain, shortness of breath, headache, or rash. OBJECTIVE: VITAL SIGNS: Temperature is 97.3, remains afebrile, pulse is 88, respirations 18 and blood pressure 113/78. GENERAL: Alert and oriented, no acute distress. Seems sleepy and weak a little bit. Moves all extremities. CV: S1, S2. CHEST: Equal expansion. Clear to auscultation. No acute distress. ABDOMEN: Soft, obese, and nontender. HEENT: Moist. No pallor. No JVD. MEDICATIONS: Medication list reviewed. From Infectious Disease point of view, the patient is on vancomycin p.o. and Flagyl IV. LABORATORY STUDIES: White count of 6.67, hemoglobin 8.8, platelet 339. Sodium 141, potassium 3.4, creatinine 0.62. Serology: C diff positive on 10/18. Coronavirus not detected on 10/17. MICROBIOLOGY: Stool for ova and parasites pending. PATHOLOGY: No pathology available. RADIOLOGY STUDIES: No new radiology studies available. ASSESSMENT AND PLAN: 1. Clostridium difficile. 2. Diarrhea-improved in numbers. 3. Chronic pain. Pain management per others. 4. The lipase has gone up from 115 to 142. CRP still pending. Please refer to chart for more information. Discussed with Dr. Moore in detail. Clinically, no acute distress. Recheck lipase tomorrow and follow with CRP. Dictated by Devante Zimmerman PA-C (Al) MD GREGORIO Bentley/IESHAL /[id number]
--- NOTE | 2019-10-22 15:55 | NUR ---
PATIENT HAD A SOFT BM. ASSISTED BACK TO BED, CALL LIGHT AT REACH.
[2019-10-22] MEDS ORDERED: POTASSIUM BICARBONATE/CIT AC 20 MEQ TABLET.EFF PO ONE (16:00)
--- NOTE | 2019-10-22 16:09 | Progress Note ---
DATE: 10/22/2019 CONSULTANTS: 1. Dr. Lobo with GI. 2. Dr. Moore with ID. CHIEF COMPLAINT: Severe abdominal pain and constant diarrhea. SUBJECTIVE: The patient reports having severe abdominal pain and diarrhea, but seen snoring in the room. She is lethargic and drowsy, but is still asking for pain medication. Discussed that we will discontinue other sedating medications such as Neurontin and Flexeril. She denies any chest pain, shortness of breath, fever, or chills. She is also asked to show the nurse the next time she has bowel movement. PHYSICAL EXAMINATION: VITAL SIGNS: Temperature is 98.2, pulse is 86, respirations 19, blood pressure 117/75, pulse ox is 96% on room air. GENERAL: Lethargic. HEENT: Normocephalic, atraumatic. CARDIOVASCULAR: Regular rate and rhythm. LUNGS: Clear to auscultation. ABDOMEN: Soft, but tender to palpation. MUSCULOSKELETAL: Moves all extremities. No edema. SKIN: Dry and intact. PSYCH: Calm. LABORATORY DATA: WBC 6.67, hemoglobin 8.8, hematocrit 29.4, platelet 339. Sodium 141, potassium 3.41, BUN is 9, creatinine 0.62. Lipase 142. IMPRESSION: 1. Colitis with Clostridium difficile positive. Continue on Flagyl and p.o. vancomycin. ID and GI on the case. Continue lactobacillus and patient refused Questran. 2. Hypokalemia. Replace and recheck. 3. Depression and anxiety. We will resume Valium. 4. Elevated lipase. Was at 115 and up to [address] abdomen was noted. We will continue on GI soft diet. 5. Chronic back pain. We will hold gabapentin and Flexeril for now due to the lethargic. 6. Insomnia. 7. Anemia of chronic diseases. Hemoglobin is 8.8. We will monitor closely. 8. Deep vein thrombosis prophylaxis. SCDs due to anemia. PLAN: Plan is to continue antibiotics, advance diet, we will review pain medication and discontinue sedating medications. Dictated by JOSHUA Douglas Robynching Jaun Acuna MD MY/MODL /[id number]
[2019-10-22] MEDS ORDERED: DICYCLOMINE HCL 10 MG CAP PO SCH (16:30)
[2019-10-22] MEDS: DICYCLOMINE HCL 20 MG TAB PO SCH (17:00)
--- NOTE | 2019-10-22 20:00 | NUR ---
Received report from AM nurse. Walking rounds completed.
[2019-10-22] MEDS: MIRTAZAPINE 15 MG TAB PO SCH (20:59)
[2019-10-22] MEDS: ZOLPIDEM TARTRATE 10 MG TAB PO SCH (20:59)
[2019-10-22] MEDS: TEMAZEPAM 15 MG CAP PO SCH (20:59)
[2019-10-23] VITALS (7 sets, daily range): BP systolic 122–170; BP diastolic 74–106
[2019-10-23] MEDS: VANCOMYCIN 250MG/5ML ORAL SOLN PO SCH ×5 (01:00→23:18)
--- NOTE | 2019-10-23 01:50 | NUR ---
Dr Lobo on the floor to see pain. F/u with new orders. Patient had 3 BM. No noted diarrea. Patient received pain meds for PIPER with little improvement. Continue monitor. IV fluids decreased to 30cc kvo.
[2019-10-23] MEDS: METRONIDAZOLE 500MG/NS 100ML 100 ML IV SCH ×3 (06:00→22:00)
[2019-10-23] MEDS: DIAZEPAM 5 MG TAB PO SCH ×3 (06:00→22:00)
--- NOTE | 2019-10-23 07:10 | NUR ---
RECEIVED PT RESTING IN BED C/O HEADACHE INFORMED TOO EARLY TO BE REMEDIATED.
[2019-10-23] MEDS: DICYCLOMINE HCL 20 MG TAB PO SCH ×3 (07:30→17:40)
[2019-10-23] MEDS: ACETAMINOPHEN/CODEINE 300MG - 30MG TAB PO PRN ×2 (08:50→15:30)
[2019-10-23] MEDS: CHOLESTYRAMINE 4 GM PACKET PO SCH ×2 (08:52→17:00)
[2019-10-23] MEDS: LACTOBACILLUS ACIDOPHILUS CAPSULE PO SCH ×2 (08:52→17:00)
[2019-10-23] MEDS: CITALOPRAM HYDROBROMIDE 20 MG TAB PO SCH (08:52)
--- NOTE | 2019-10-23 11:23 | Progress Note ---
DATE: SUBJECTIVE: The patient is seen and evaluated. Available labs and notes reviewed. Discussed with the nurse. Apparently, there was some problem with the pain medication this morning and the patient was requesting pain medication a little bit earlier than she is scheduled. Also states that she had 11 bowel movements last night. She had 2 bowel movements since this morning. Bowel movements from last night are not witnessed. Currently, she has stool in the commode and it is not watery diarrhea and seems to be semi formed a little bit. REVIEW OF SYSTEMS: As mentioned above and also no nausea, vomiting, fever, chills, chest pain, or shortness of breath. PHYSICAL EXAMINATION: VITAL SIGNS: Temperature 97.4, pulse is 88, respirations 18, and blood pressure 144/92. GENERAL: Alert and oriented, no acute distress. CV: S1 and S2. CHEST: Equal expansion. Clear to auscultation. No acute distress. ABDOMEN: Soft, obese, and nontender. HEENT: Moist. No pallor. No JVD. EXTREMITIES: Moves all with maybe trace edema. As we were talking with the patient, the walked in and no new complaints from her either. MEDICATIONS: Medication list reviewed and from Infectious Disease point of view, the patient is on lactobacillus, vancomycin p.o. and Flagyl IV. Also, the patient is on Questran p.o. b.i.d. LABORATORY STUDIES: White count of 6.67 yesterday with a hemoglobin of 8.8 and platelet of 339. Also yesterday sodium was 141, potassium 3.4 with creatinine of 0.62. No new serology available on microbiology section. Stool ova parasite screen is pending. Pathology, no new pathology. RADIOLOGY STUDIES: No new radiology studies. ASSESSMENT AND PLAN: 1. Clostridium difficile. The patient is on vancomycin p.o., Flagyl IV, Questran, and lactobacillus. It seems to be improving as far as the quality of the stool, liquid turning into little bit more formed. Still has too many bowel movements in the past 12 hours. As mentioned above, she had 11 last night and 3 this morning. 2. Chronic pain syndrome. 3. Elevated lipase at 142. 4. Hypokalemia. 5. Depression/anxiety. 6. Anemia of chronic disease. 7. The patient's diet is soft diet. In regard with her elevated lipase, we will continue with above antibiotics. At this point, continue with PT/OT. Pain management per others. Clinically, no acute distress. Discussed with staff. Continue to monitor the patient clinically and follow up with the labs. Please refer to chart for more information. Discussed with Dr. Moore in details. Dictated by Devante Zimmerman PA-C (Al) Corie Moore MD /MODL /[id number]
[2019-10-23] MEDS: SODIUM CHLORIDE 0.9% 1000ML 1,000 ML IV SCH (12:00)
[2019-10-23] MEDS: ONDANSETRON HCL 4 MG ORAL DISINTEGRATING TAB PO PRN ×2 (13:33→23:30)
--- NOTE | 2019-10-23 18:09 | Progress Note ---
DATE: 10/23/2019 CONSULTANTS: 1. Dr. Lobo with GI. 2. Dr. Moore with ID. CHIEF COMPLAINT: Severe abdominal pain and diarrhea. SUBJECTIVE: The patient reports abdominal pain is increased, and still with diarrhea 7 times this morning. According to nursing staff, stools have been semi-formed. She reports abdomen is very tender to touch. Denies any chest pain, shortness of breath, nausea, or vomiting. PHYSICAL EXAMINATION: VITAL SIGNS: Temperature is 97.7, pulse is 100, respirations 18, blood pressure 135/77, and pulse ox is 93% on room air. GENERAL: Fatigue. HEENT: Normocephalic, atraumatic. CARDIOVASCULAR: Regular rate and rhythm. LUNGS: Clear to auscultation. ABDOMEN: Soft, but very tender to palpation. MUSCULOSKELETAL: Moves all extremities. No edema. SKIN: Dry and intact. PSYCH: Calm. IMPRESSION: 1. Colitis with Clostridium difficile positive. Continue on Flagyl and p.o. vancomycin per ID and GI. Continue lactobacillus. 2. Hypokalemia, replaced. 3. Depression and anxiety. We will continue Valium. 4. Elevated lipase. CT of abdomen noted. We will continue with GI soft diet. 5. Chronic back pain. We will hold gabapentin and Flexeril for now due to lethargy. 6. Insomnia. Ambien as needed. 7. Anemia of chronic disease. Hemoglobin stable at 8.8. We will continue to monitor. 8. Obesity. 9. Deep vein thrombosis prophylaxis. SCDs due to anemia. PLAN: To continue antibiotics, advance diet, further recommendations per GI. Dictated by JOSHUA Douglas Karina Acuna MD MY/MODL /[id number]
--- NOTE | 2019-10-23 18:45 | NUR ---
PT HAD 4 SOFT FORM STOOL THIS SHIFT. PT WAS MEDICATED TIME TWO FOR PAIN. NO OTHER CHANGES AT THIS TIME.
[2019-10-23] MEDS: ZOLPIDEM TARTRATE 10 MG TAB PO SCH (20:36)
[2019-10-23] MEDS: TEMAZEPAM 15 MG CAP PO SCH (20:36)
[2019-10-23] MEDS: MIRTAZAPINE 15 MG TAB PO SCH (20:36)
[2019-10-24] VITALS (10 sets, daily range): BP systolic 112–132; BP diastolic 63–99
[2019-10-24] MEDS: SODIUM CHLORIDE 0.9% 1000ML 1,000 ML IV SCH ×2 (00:45→13:59)
[2019-10-24] MEDS: DIAZEPAM 5 MG TAB PO SCH ×2 (05:23→13:38)
[2019-10-24] MEDS: METRONIDAZOLE 500MG/NS 100ML 100 ML IV SCH ×4 (05:23→17:10)
[2019-10-24] MEDS: VANCOMYCIN 250MG/5ML ORAL SOLN PO SCH ×3 (05:23→17:10)
[2019-10-24] MEDS: ACETAMINOPHEN/CODEINE 300MG - 30MG TAB PO PRN ×2 (05:24→13:28)
[2019-10-24 06:34] LABS: BASOPHILS # (AUTO) 0.1 (0.0-0.1); EOSINOPHILS # (AUTO) 0.2 (0.0-0.4); EOSINOPHILS % 3.5 % (0.0-6.0); HEMATOCRIT 30.1 % (34.2-44.1); HEMOGLOBIN 9.4 g/dL (12.0-16.0); LYMPHOCYTES # (AUTO) 2.2 (1.0-3.2); LYMPHOCYTES % 36.9 % (18.0-39.1); MEAN CORPUSCULAR HEMOGLOBIN 30.2 pg (28-32); MEAN CORPUSCULAR HGB CONC 31.2 g/dL (31-35); MEAN CORPUSCULAR VOLUME 96.8 fL (81-99); MONOCYTES # (AUTO) 0.5 (0.2-0.8); MONOCYTES % 7.9 % (4.4-11.3); NEUTROPHILS # (AUTO) 3.1 (2.1-6.9); NEUTROPHILS % 50.5 % (38.7-80.0); PLATELET COUNT 360 x10e3/uL (140-360); RED BLOOD COUNT 3.11 x10e6/uL (3.6-5.1); RED CELL DISTRIBUTION WIDTH 15.9 % (11.7-14.4)
[2019-10-24 06:52] LABS: ANION GAP 11.3 mmol/L (8-16); BLOOD UREA NITROGEN 6 mg/dL (7-26); BUN/CREATININE RATIO 9 (6-25); CALCIUM 8.2 mg/dL (8.4-10.2); CARBON DIOXIDE 29 mmol/L (22-29); CHLORIDE 105 mmol/L (98-107); CREATININE, SERUM 0.66 mg/dL (0.57-1.11); EST GLOMERULAR FILTRATION RATE > 60 ML/MIN (60-); GLUCOSE 72 mg/dL (74-118); POTASSIUM 3.3 mmol/L (3.5-5.1); SODIUM 142 mmol/L (136-145)
[2019-10-24 07:07] LABS: FERRITIN 40.71 ng/mL (4.63-204.00)
[2019-10-24] MEDS: DICYCLOMINE HCL 20 MG TAB PO SCH ×3 (08:00→16:30)
--- NOTE | 2019-10-24 08:00 | NUR ---
PT RESTING QUIETLY AT THIS TIME NO COMPLAINTS VOICED.
[2019-10-24] MEDS: LACTOBACILLUS ACIDOPHILUS CAPSULE PO SCH ×2 (08:47→16:28)
[2019-10-24] MEDS: CITALOPRAM HYDROBROMIDE 20 MG TAB PO SCH (08:47)
[2019-10-24] MEDS: CHOLESTYRAMINE 4 GM PACKET PO SCH ×2 (08:47→17:00)
--- NOTE | 2019-10-24 09:06 | NUR ---
at pt bedside. pt very sleepy; this nurse has not medicated her with anything but very sleepy at this time. she states she didnt sleep very well last nite
--- NOTE | 2019-10-24 12:13 | Progress Note ---
DATE: SUBJECTIVE: The patient is seen and evaluated. Available labs and notes reviewed. Discussed with the nurse. Discussed with the . The patient has significant improvement in number of bowel movements and stool is not watery anymore. Apparently, she has not had any bowel movements since 7 o'clock shift this morning and now it is about 11 o'clock. She had total of 3 bowel movements last night. PHYSICAL EXAMINATION: VITAL SIGNS: Temperature is 97.6, pulse 79, respirations 17, and blood pressure 132/89. GENERAL: Alert and oriented. No acute distress. CV: S1 and S2. CHEST: Equal expansion. Clear to auscultation. No acute distress. ABDOMEN: Soft and nontender. No distention. HEENT: Moist. No pallor. No JVD. MEDICATIONS: Medication list reviewed and from Infectious Disease point of view, the patient is on Flagyl IV and vancomycin p.o., also on Questran and lactobacillus. LABORATORY STUDIES: White count of 6.05, hemoglobin 9.4, and platelet 360. Sodium 142, potassium 3.3, and creatinine 0.66. Serology; C. difficile positive 10/18. MICROBIOLOGY: Stool for ova and parasite screen still pending. IMAGING: No new radiology studies available. ASSESSMENT AND PLAN: 1. Clostridium difficile. 2. Diarrhea-improved. 3. Chronic pain syndrome. 4. Hypokalemia. 5. Depression. 6. Anxiety. 7. Anemia of chronic disease. 8. The patient is tolerating oral intake. Diarrhea has improved. Continue with vancomycin p.o. and Flagyl IV. Continue PT/OT. Continue with the pain management, overall improved. Continue to monitor the patient clinically and follow up with the labs. Discussed with Dr. Moore in details. Please refer to chart for more information. Dictated by Devante Zimmerman PA-C (Al) Corie Moore MD /MODL /[id number]
--- NOTE | 2019-10-24 12:30 | NUR ---
PT DIET WAS NOT WHAT SHE WANTED NEW DIET RECEIVED
[2019-10-24] MEDS: ONDANSETRON HCL 4 MG ORAL DISINTEGRATING TAB PO PRN (13:28)
--- NOTE | 2019-10-24 16:30 | NUR ---
DR. POWELL PA TO SEE PT. PT WILL BE DC LATER
[2019-10-24] MEDS ORDERED: FLAGYL500 MG PO (16:40)
[2019-10-24] MEDS ORDERED: VANCOCIN HCL250 MG PO (16:40)
--- NOTE | 2019-10-24 18:30 | NUR ---
PT FOUND ON FLOOR IN BATHROOM. PT ABLE TO REACH CORD TO CALL FOR ASSISTANCE
--- NOTE | 2019-10-24 18:34 | NUR ---
NOTIFIED Ju GARCIA NP OF PT BEING FOUND ON FLOOR AND A LUMP ON RT SIDE OF HEAD. NEW ORDERS RECEIVED. NEURO CHECKS COMPLETED.
--- NOTE | 2019-10-24 19:00 | NUR ---
NO CHANGES IN NEURO .
--- NOTE | 2019-10-24 19:52 | NUR ---
Received report from AM nurse. Patient off the floor to CT of the head.
--- NOTE | 2019-10-24 20:35 | Diagnostic Imaging Report ---
Examination: CT BRAIN WO CONTRAST History:Status post fall with injury of the right side of the head. Comparison studies:None Technique: Axial images were obtained from the skull base to the vertex. Coronal and sagittal images reconstructed from the axial data. Dose modulation, iterative reconstruction, and/or weight based adjustment of the mA/kV was utilized to reduce the radiation dose to as low as reasonably achievable. Intravenous contrast: None Findings: Scalp: No abnormalities. Bones: No fractures, blastic or lytic lesions. Brain sulci: Appropriate for age. Ventricles: Normal in size and configuration. No hydrocephalus. Extra-axial space: No abnormalities. Parenchyma: No abnormal densities. No masses, hemorrhage, or acute or chronic cortical based vascular insults.. Sellar/suprasellar region: No abnormalities. Craniocervical junction: Patent foramen magnum. No Chiari one malformation. Incidental findings: None. Impression: No intracranial abnormalities. Signed by: Dr. Annie Gusman M.D. on 10/24/2019 8:32 PM
[2019-10-24] MEDS: MIRTAZAPINE 15 MG TAB PO SCH (21:00)
[2019-10-24] MEDS: TEMAZEPAM 15 MG CAP PO SCH (21:00)
[2019-10-24] MEDS ORDERED: ACETAMINOPHEN 325 MG TAB PO PRN (21:30)
[2019-10-24] MEDS: ZOLPIDEM TARTRATE 10 MG TAB PO SCH (23:00)
[2019-10-25] VITALS (7 sets, daily range): BP systolic 98–132; BP diastolic 67–89
--- NOTE | 2019-10-25 | NUR ---
Called [employer] given results of CT of brain. Results given.
--- NOTE | 2019-10-25 01:46 | Progress Note ---
DATE: 10/24/2019 CONSULTANTS: 1. Dr. Lobo with GI. 2. Dr. Moore with ID. CHIEF COMPLAINT: Severe abdominal pain and diarrhea. SUBJECTIVE: The patient is tolerating GI soft diet, reports diarrhea is improved. She denies any chest pain, shortness of breath, nausea, or vomiting. Stool is formed and soft. PHYSICAL EXAMINATION: VITAL SIGNS: Temperature 97.6, pulse 97, respirations 20, blood pressure 120/63, and pulse ox is 94% on room air. GENERAL: Fatigue. HEENT: Normocephalic and atraumatic. CARDIOVASCULAR: Regular rate and rhythm. LUNGS: Clear to auscultation. ABDOMEN: Soft, but is very tender to palpation. MUSCULOSKELETAL: Moves all extremities. No edema. SKIN: Dry and intact. PSYCH: Calm. LABORATORY DATA: WBC 6.05, hemoglobin is 9.4, hematocrit is 30.1, and platelet 360. Sodium 142, potassium 3.3, BUN 6, and creatinine 0.66. Estimated GFR is greater than 60. Lipase 54. IMPRESSION: 1. Colitis with C diff positive. Continue on Flagyl and p.o. vancomycin per ID. GI on board, tolerating GI soft diet. Diarrhea is improving. 2. Hypokalemia. Replace. 3. Depression and anxiety. Continue Valium. 4. Elevated lipase. Lipase is within normal limits now. 5. Chronic back pain. We will hold gabapentin and Flexeril due to lethargy. 6. Insomnia. Ambien as needed. 7. Anemia of chronic disease. Hemoglobin stable. Continue to monitor. 8. Obesity. 9. Fall. CT brain negative for acute process. 10. Deep vein thrombosis prophylaxis. SCDs due to anemia. PLAN: Discharge was held due to fall. We will monitor overnight and anticipate discharge home on p.o. antibiotics in the a.m. Dictated by JOSHUA Douglas Karina Acuna MD MY/MODL /[id number]
[2019-10-25] MEDS: METRONIDAZOLE 500MG/NS 100ML 100 ML IV SCH ×4 (05:06→17:02)
[2019-10-25] MEDS: VANCOMYCIN 250MG/5ML ORAL SOLN PO SCH ×4 (05:07→17:02)
--- NOTE | 2019-10-25 06:44 | NUR ---
Dr Lobo s/w patient. No new orders
--- NOTE | 2019-10-25 06:46 | NUR ---
RECEIVED BEDSIDE SHIFT REPORT FROM OFF GOING NURSE. PATIENT IS RESTING IN BED. NO S/S OF DISTRESS NOTED. CALL LIGHT WITHIN REACH. BED IN THE LOWEST POSITION.
[2019-10-25] MEDS ORDERED: IRON SUCROSE 100 MG in SODIUM CHLORIDE 0.9% 100 ML 100 ML IV SCH (08:00)
[2019-10-25] MEDS: LACTOBACILLUS ACIDOPHILUS CAPSULE PO SCH ×2 (08:42→16:35)
[2019-10-25] MEDS: CITALOPRAM HYDROBROMIDE 20 MG TAB PO SCH (08:42)
[2019-10-25] MEDS: CHOLESTYRAMINE 4 GM PACKET PO SCH ×2 (08:42→16:35)
[2019-10-25] MEDS: DICYCLOMINE HCL 20 MG TAB PO SCH ×3 (08:42→16:35)
[2019-10-25] MEDS: ONDANSETRON HCL 4 MG ORAL DISINTEGRATING TAB PO PRN (08:45)
[2019-10-25] MEDS ORDERED: CYANOCOBALAMIN INJ 1,000 MCG/ML VIAL IM SCH (09:00)
--- NOTE | 2019-10-25 13:18 | Progress Note ---
DATE: SUBJECTIVE: The patient is seen and evaluated. Available labs and notes reviewed. Discussed with the nurse. Discussed with the patient. Discussed with the . The patient is sleepy but alert and oriented. Apparently, she had a fall yesterday and that held the discharge planning. Had a CT of the brain, which showed no intracranial abnormalities. Currently, no nausea, vomiting, fever, chills, chest pain, or shortness of breath. Diarrhea has improved. OBJECTIVE: VITAL SIGNS: Temperature 97.6, pulse 72, respirations 18, and blood pressure 120/82. GENERAL: Alert and oriented. Easily awaken. No acute distress. CV: S1, S2. CHEST: Equal expansion. Clear to auscultation. No acute distress. ABDOMEN: Soft, obese, nontender. Bowel sounds positive. HEENT: Moist. No pallor. No JVD. EXTREMITIES: Moves all. No significant edema. MEDICATIONS: Medication list reviewed. From Infectious Disease point of view, the patient is on vancomycin p.o. and Flagyl IV. Also, the patient is on Questran and acidophilus. LABORATORY STUDIES: No new CBC or BMP. Serology, no new serology. MICROBIOLOGY: Stool for ova and parasite not done. IMAGING: As mentioned above, CT of the head showed no acute intracranial abnormalities. ASSESSMENT AND PLAN: 1. Clostridium difficile. 2. Diarrhea, improved. 3. Electrolyte abnormalities. 4. Chronic pain syndrome. The patient's pain medications and insomnia medications including neuropathy medications on hold secondary to fall and being sleepy. 5. Depression. 6. Anxiety. 7. Anemia of chronic disease. 8. Status post fall. 9. Radiology negative for acute finding of the head post fall, remains on vancomycin p.o., Flagyl IV, Questran and lactobacillus. Continue with medications as mentioned. Followup the patient clinically. Please refer to chart for more information. Discussed with Dr. Moore in detail. Dictated by Devante Zimmerman PA-C (Al) Corie Moore MD /MODL /[id number]
[2019-10-25] MEDS ORDERED: FLUCONAZOLE 100 MG TAB PO ONE (14:45)
[2019-10-25] MEDS ORDERED: Lactobacillus Acidophilus PO (15:11)
[2019-10-25] MEDS ORDERED: VANCOCIN HCL250 MG PO (15:11)
--- NOTE | 2019-10-25 16:56 | NUR ---
RD Recommendation for Physician: -Continue current diet as ordered Plan of Care: RD following, monitoring for tolerance and adequacy Nutrition reason for involvement: consult Primary Diagnose(s): abdominal pain, diarrhea PMH: chronic back pain, depression Ht: 67 in Wt:214 lb BMI: 33.5kg/m2 IBW:[address] Assessment: (10/25/19) Chart reviewed. Labs and meds reviewed. Pt is a 43 year old female admitted with abdominal pain and diarrhea. Pt was found to be C-diff +. Pt stated she has been eating 50-75% of meals. Pt reported she had used to weigh 230 lbs 3 weeks ago and currently weighs 214 lbs. However, per weight history in chart, pt had a weight of 213 lbs in chart on 10/08 from previous admission. Pt reported her diarrhea is improving. Pt requested diet education regarding a GI soft diet which was provided. Will continue to monitor. Current Diet: GI Soft diet Malnutrition Evaluation (10/25/19) The patient does not meet criteria for a specified degree of malnutrition at this time. Will re-evaluate at follow-up as appropriate. Diet Education Needs Assessment: Pt requested diet education regarding GI soft diet. Learner(s): pt Barriers: no barriers identified Cultural/Language Modifications: no cultural/language modifications Readiness: acceptance/eager Method: explanation/discussion/handout Topics: GI soft diet Understanding/Compliance: pt verbalized understanding Nutrition Care Level: low Signed: Ifrah Edward, RD, LD
--- NOTE | 2019-10-25 18:13 | NUR ---
PER ASHANTI EPSTEIN DC PICC LINE AT THIS TIME.
--- NOTE | 2019-10-25 18:20 | NUR ---
Discontinued PICC line with tip intact, pressure dressing applied to site, no bleeding noted.
--- NOTE | 2019-10-25 19:11 | NUR ---
Bedside shift report given to oncoming nurse. Patient is sitting up in bed. No acute distress noted. Nurse is aware of patient being discharged tonight. PICC line discontinued earlier. Call light within reach. Bed in the lowest position.
--- NOTE | 2019-10-25 19:25 | NUR ---
Received change of shift report from AM nurse. Walking rounds completed.
--- NOTE | 2019-10-26 23:01 | Discharge Summary ---
PRIMARY CARE PHYSICIAN: Miko Bahena DO FINAL DISCHARGE DIAGNOSES: 1. Colitis with Clostridium difficile positive. 2. Hypokalemia. 3. Depression and anxiety. 4. Elevated lipase. 5. Chronic back pain. 6. Insomnia. 7. Anemia of chronic disease. 8. Obesity. CONSULTANTS: 1. Dr. Lobo with GI. 2. Dr. Moore with ID. PROCEDURES: None. HISTORY: Per HPI. HOSPITAL COURSE: This is a 43-year-old female with past medical history of depression, anxiety, chronic back pain, and anemia, who presented to the ER with complaints of diarrhea after being treated for colitis recently. Stool was positive for C diff. So, she was started on vancomycin p.o. CT of the abdomen and pelvis showed infectious or inflammatory proctocolitis and a setting of diarrhea. GI was consulted. Advised to continue on vancomycin and Flagyl. She was started on clear liquid and advance diet as tolerated. Today, she is tolerating a regular diet, diarrhea is improving, we will discharge home on p.o. vancomycin to continue to complete a total of 3 weeks. She is advised to follow up with GI for colonoscopy once the colitis resolves. PHYSICAL EXAMINATION: VITAL SIGNS: Temperature 98.3, pulse is 97, respirations 20, blood pressure 122/75, pulse ox 94% on room air. GENERAL: No acute distress. CARDIOVASCULAR: Regular rate and rhythm. LUNGS: Clear to auscultation. ABDOMEN: Soft and tender. MUSCULOSKELETAL: Moves all extremities. SKIN: Dry. CONDITION AT DISCHARGE: Improved and stable. DISCHARGE MEDICATIONS: Please see medication reconciliation list. FOLLOWUP: Follow up with PCP and GI in 1 to 2 weeks. TOTAL DISCHARGE TIME: 33 minutes. Dictated by JOSHUA Douglas Robynching Jaun Acuna MD MY/MODL /[id number] cc: Miko Bahena DO
== END 2019-10-25 19:45 | disposition home or self-care (01) | DRG 372 ==
LOC: ER 19:39 → ERHOLD 10-18 00:46 → MED/SURG 10-18 11:40 → OBSVTOIN 10-20 09:49 → MED/SURG3 10-20 15:10
PROVIDERS: ADMIT Internal Medicine; ATTEND Internal Medicine
PROC: 02HV33Z Insertion of Infusion Device into Superior Vena Cava, Percutaneous Approach (ICD-10-PCS; principal; 2019-10-18)
PROC: B548ZZA Ultrasonography of Superior Vena Cava, Guidance (ICD-10-PCS; 2019-10-18)
DX: A04.71 Enterocolitis due to Clostridium difficile, recurrent (principal); C92.00 Acute myeloblastic leukemia, not having achieved remission; M54.9 Dorsalgia, unspecified; F32.9 Major depressive disorder, single episode, unspecified; R51 Headache; E87.6 Hypokalemia; G47.00 Insomnia, unspecified; D72.819 Decreased white blood cell count, unspecified; D63.8 Anemia in other chronic diseases classified elsewhere; G89.4 Chronic pain syndrome; E66.9 Obesity, unspecified; W18.30XA Fall on same level, unspecified, initial encounter; Z82.49 Family history of ischemic heart disease and other diseases of the circulatory system; Z88.8 Allergy status to other drugs, medicaments and biological substances; Z88.1 Allergy status to other antibiotic agents; Z91.041 Radiographic dye allergy status; Z90.49 Acquired absence of other specified parts of digestive tract; Z11.59 Encounter for screening for other viral diseases; Z90.710 Acquired absence of both cervix and uterus; Y92.231 Patient bathroom in hospital as the place of occurrence of the external cause; Z68.33 Body mass index [BMI] 33.0-33.9, adult
CPT/HCPCS: 36415; 36569; 70450; 71045; 74022; 74177; 80048; 80053; 81001; 82150; 82550; 82553; 82607; 82728; 82746; 82948; 83540; 83690; 83735; 83993; 84466; 84484; 85025; 85045; 86140; 87045; 87177; 87493; 99284; G0378; J1170; J1756; J2405; J3420; J7030; J7040; J7512; Q0162; Q9967; U0002

== ENCOUNTER 2019-11-06 10:31 | Observation (INO) | payer BC, OTHER ==
[~2019-11-06] VITALS: Ht 170.2 cm; Wt 97.1 kg
[~2019-11-06 10:31] MED LIST changes: +FLAGYL500 MG PO; +Lactobacillus Acidophilus PO; +VANCOCIN HCL250 MG PO
[2019-11-06] MEDS ORDERED: ONDANSETRON HCL INJ 2MG/ML 2ML 2 MG/ML VIAL IV STA (11:28)
[2019-11-06] MEDS ORDERED: MORPHINE SULFATE 2 MG/ML SYR 1ML IV STA (11:28)
[2019-11-06] MEDS ORDERED: SODIUM CHLORIDE 0.9% 1000ML 1,000 ML IV STA (11:28)
[2019-11-06] MEDS ORDERED: PANTOPRAZOLE 40 MG 10ML VIAL IV ONE (12:00)
[2019-11-06 12:09] LABS: EOSINOPHILS # (AUTO) 0.3 (0.0-0.4); EOSINOPHILS % 7.9 % (0.0-6.0); HEMATOCRIT 38.4 % (34.2-44.1); HEMOGLOBIN 12.1 g/dL (12.0-16.0); LYMPHOCYTES # (AUTO) 1.8 (1.0-3.2); MEAN CORPUSCULAR HEMOGLOBIN 29.4 pg (28-32); MEAN CORPUSCULAR HGB CONC 31.5 g/dL (31-35); MEAN CORPUSCULAR VOLUME 93.2 fL (81-99); MONOCYTES # (AUTO) 0.4 (0.2-0.8); MONOCYTES % 8.6 % (4.4-11.3); NEUTROPHILS # (AUTO) 1.7 (2.1-6.9); NEUTROPHILS % 39.3 % (38.7-80.0); PLATELET COUNT 337 x10e3/uL (140-360); RED BLOOD COUNT 4.12 x10e6/uL (3.6-5.1); RED CELL DISTRIBUTION WIDTH 14.7 % (11.7-14.4)
[2019-11-06 12:21] LABS: BILIRUBIN,URINE NEGATIVE (NEGATIVE); CLARITY,URINE CLEAR (CLEAR); COLOR,URINE YELLOW (YELLOW); INR 0.86; KETONES,URINE NEGATIVE (NEGATIVE); LEUKOCYTE ESTERASE ,URINE NEGATIVE (NEGATIVE); NITRITE,URINE NEGATIVE (NEGATIVE); PARTIAL THROMBOPLASTIN TIME 27.9 seconds (23.8-35.5); PROTEIN,URINE DIPSTICK NEGATIVE (NEGATIVE); PROTHROMBIN TIME 12.2 seconds (11.9-14.5); URINE UROBILINOGEN 0.2 mg/dL (0.2 - 1)
[2019-11-06 12:33] LABS: ALANINE AMINOTRANSFERASE 55 IU/L (0-55); ALBUMIN 3.7 g/dL (3.5-5.0); ALBUMIN/GLOBULIN RATIO 1.2 (0.8-2.0); ALKALINE PHOSPHATASE 125 IU/L (40-150); AMYLASE 38 U/L (25-125); ANION GAP 11.9 mmol/L (8-16); BLOOD UREA NITROGEN 12 mg/dL (7-26); BUN/CREATININE RATIO 17 (6-25); CALCIUM 9.4 mg/dL (8.4-10.2); CARBON DIOXIDE 29 mmol/L (22-29); CHLORIDE 103 mmol/L (98-107); CREATINE KINASE 57 IU/L (29-168); CREATININE, SERUM 0.71 mg/dL (0.57-1.11); EST GLOMERULAR FILTRATION RATE > 60 ML/MIN (60-); GLUCOSE 89 mg/dL (74-118); LIPASE 52 U/L (8-78); MAGNESIUM 1.8 MG/DL (1.3-2.1); POTASSIUM 3.9 mmol/L (3.5-5.1); SODIUM 140 mmol/L (136-145)
[2019-11-06 12:40] LABS: BACTERIA,URINE FEW /HPF; EPITHELIAL CELLS,URINE RARE /LPF; RBC,URINE 0-5 /HPF (0-5); WBC,URINE (MAN) 0-5 /HPF (0-5)
[2019-11-06] MEDS ORDERED: MORPHINE SULFATE INJ 4 MG/ML INJ 1ML IV PRN ×2 (12:45→15:00)
[2019-11-06] MEDS ORDERED: VANCOMYCIN 250MG/5ML ORAL SOLN PO SCH (12:45)
--- NOTE | 2019-11-06 12:46 | Emergency Department Note ---
History of Present Illnes History of Present Illness Chief Complaint: Abdominal Complaints History of Present Illness This is a 43 year old female PATIENT IN FROM HOME WITH COMPLAINTS OF HEAD PAIN AND ABDOMINAL PAIN X 1 MONTH; STATES WAS ADMITTED THE BEGINNING OF OCTOBER AND DIAGNOSED WITH C-DIFF, STATES HAS NOT GOTTEN BETTER AND HAS NOT BEEN ABLE TO SEE GI. PATIENT RATES PAIN 10/10, C/O DIARRHEA 8-10 TIMES PER DAY AND NA USEA. 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 Any updates have been documented here. Past Medical History Recent Fever: Yes Clinical Suspicion of Infectio: Yes New/Unexplained Change in Ment: No Past Medical History: Cancer, Chronic Back Pain Other Medical History: cervical cancer stage 4 leukemia Past Surgical History: Cholecysctectomy, Hysterectomy, Hernia Repair Other Surgery: spinal fusion dilaudid pain pump insertion (OFF AT THIS TIME PER PT) bile duct sphincterectomy scar tissue removal x3 in abd Cicero hernia REPAIR R&Y Social History Smoking Cessation: Former smoker Alcohol Use: Occasional Any Illegal Drug Use: No TB Exposure/Symptoms: No Physically hurt or threatened: No Family History Family history of heart diseas: No Other Last Tetanus: UNKNOWN Any Pre-Existing Lines (PICC,: No Is patient up to date on immun: Yes Last Flu: none Last Pneumovax: none Review of Systems Review of Systems Constitutional: Reports no symptoms EENTM: Reports no symptoms Cardiovascular: Reports no symptoms Respiratory: Reports no symptoms Gastrointestinal: Reports as per HPI Genitourinary: Reports no symptoms Musculoskeletal: Reports no symptoms Integumentary: Reports no symptoms Neurological: Reports no symptoms Psychological: Reports no symptoms Endocrine: Reports no symptoms Hematological/Lymphatic: Reports no symptoms Physical Exam Related Data Allergies: Coded Allergies: amoxicillin (Verified Allergy, Intermediate, hives, 11/06/19) clavulanic acid (Verified Allergy, Intermediate, hives, 11/06/19) iodine (Verified Allergy, Intermediate, hives, 11/06/19) Triage Vital Signs Vital Signs Date Time Temp Pulse Resp B/P (MAP) Pulse Ox O2 Delivery O2 Flow Rate FiO2 11/06/19 11:01 98.2 82 18 121/88 98 Vital signs reviewed: Yes Physical Exam CONSTITUTIONAL Constitutional: Present well-developed, Present well-nourished HENT HENT: Present normocephalic, Present atraumatic, Present mucosae dry, Present nose normal HENT L/R: Present left ext ear normal, Present right ext ear normal EYES Eyes: Reports PERRL, Reports conjunctivae normal NECK Neck: Present ROM normal PULMONARY Pulmonary: Present effort normal, Present breath sounds normal CARDIOVASCULAR Cardiovascular: Present regular rhythm, Present heart sounds normal, Present capillary refill normal, Present normal rate GASTROINTESTINAL Abdominal: Present soft, Present bowel sounds normal, Present tender (MOD DIFFUSE TENDERNESS WITHOUT R/G) GENITOURINARY Genitourinary: Present exam deferred SKIN Skin: Present warm, Present dry MUSCULOSKELETAL Musculoskeletal: Present ROM normal NEUROLOGICAL Neurological: Present alert, Present oriented x 3, Present no gross motor or sensory deficits PSYCHOLOGICAL Psychological: Present mood/affect normal, Present judgement normal Results Laboratory Result Diagram: 11/06/19 1155 11/06/19 1155 Laboratory Laboratory Tests Test 11/06/19 11:55 White Blood Count 4.19 x10e3/uL (4.8-10.8) Red Blood Count 4.12 x10e6/uL (3.6-5.1) Hemoglobin 12.1 g/dL (12.0-16.0) Hematocrit 38.4 % (34.2-44.1) Mean Corpuscular Volume 93.2 fL (81-99) Mean Corpuscular Hemoglobin 29.4 pg (28-32) Mean Corpuscular Hemoglobin Concent 31.5 g/dL (31-35) Red Cell Distribution Width 14.7 % (11.7-14.4) Platelet Count 337 x10e3/uL (140-360) Neutrophils (%) (Auto) 39.3 % (38.7-80.0) Lymphocytes (%) (Auto) 43.0 % (18.0-39.1) Monocytes (%) (Auto) 8.6 % (4.4-11.3) Eosinophils (%) (Auto) 7.9 % (0.0-6.0) Basophils (%) (Auto) 1.0 % (0.0-1.0) Neutrophils # (Auto) 1.7 (2.1-6.9) Lymphocytes # (Auto) 1.8 (1.0-3.2) Monocytes # (Auto) 0.4 (0.2-0.8) Eosinophils # (Auto) 0.3 (0.0-0.4) Basophils # (Auto) 0.0 (0.0-0.1) Absolute Immature Granulocyte (auto 0.01 x10e3/uL (0-0.1) Prothrombin Time 12.2 seconds (11.9-14.5) Prothromb Time International Ratio 0.86 Activated Partial Thromboplast Time 27.9 seconds (23.8-35.5) Urine Color Yellow (YELLOW) Urine Clarity Clear (CLEAR) Urine pH 5.5 (5 - 7) Urine Specific [place] 1.025 (1.010-1.025) Urine Protein Negative (NEGATIVE) Urine Glucose (UA) Negative (NEGATIVE) Urine Ketones Negative (NEGATIVE) Urine Blood Trace (NEGATIVE) Urine Nitrite Negative (NEGATIVE) Urine Bilirubin Negative (NEGATIVE) Urine Urobilinogen 0.2 mg/dL (0.2 - 1) Urine Leukocyte Esterase Negative (NEGATIVE) Sodium Level 140 mmol/L (136-145) Potassium Level 3.9 mmol/L (3.5-5.1) Chloride Level 103 mmol/L (98-107) Carbon Dioxide Level 29 mmol/L (22-29) Anion Gap 11.9 mmol/L (8-16) Blood Urea Nitrogen 12 mg/dL (7-26) Creatinine 0.71 mg/dL (0.57-1.11) Estimat Glomerular Filtration Rate > 60 ML/MIN (60-) BUN/Creatinine Ratio 17 (6-25) Glucose Level 89 mg/dL (74-118) Calcium Level 9.4 mg/dL (8.4-10.2) Magnesium Level 1.8 MG/DL (1.3-2.1) Total Bilirubin 0.2 mg/dL (0.2-1.2) Aspartate Amino Transf (AST/SGOT) 41 IU/L (5-34) Alanine Aminotransferase (ALT/SGPT) 55 IU/L (0-55) Alkaline Phosphatase 125 IU/L (40-150) Creatine Kinase 57 IU/L (29-168) Total Protein 6.9 g/dL (6.5-8.1) Albumin 3.7 g/dL (3.5-5.0) Globulin 3.2 g/dL (2.3-3.5) Albumin/Globulin Ratio 1.2 (0.8-2.0) Amylase Level 38 U/L (25-125) Lipase 52 U/L (8-78) Lab results reviewed: Yes Imaging Imaging results reviewed: Yes Assessment & Plan Medical Decision Making MDM ABD PAIN, DIARRHEA - CHECK CBC, CHEM, AMYLASE/LIPASE, UA/CX, CT ABD/PELVIS - R/O LEUKOCYTOSIS, ELECTROLYTE ABNL, DEHYDRATION, COLITIS, PANCREATITIS Reassessment Reassessment D/W DR POWELL FOR ADMISSION Assessment & Plan Final Impression: (1) Abdominal pain (2) Diarrhea Depart Disposition: ADMITTED Last Vital Signs Date Time Temp Pulse Resp B/P (MAP) Pulse Ox O2 Delivery O2 Flow Rate FiO2 11/06/19 12:30 70 17 108/68 100 11/06/19 11:01 98.2 Home Meds Active Scripts [Lactobacillus Acidophilus] 1 TAB TAB No Conflict Check, 1 TAB PO BID, #60 Prov:LUCIAN GARCIA NP 10/25/19 Vancomycin Hcl (VANCOCIN HCL) 250 Mg Capsule, 500 MG PO Q6H for 15 Days Prov:LUCIAN GARCIA NP 10/25/19 Cyclobenzaprine Hcl (FLEXERIL) 5 Mg Tablet, 10 MG PO TID for PAIN, #20 Prov:SIMA BAUTISTA MD 07/25/19 Reported Medications Diphenoxylate Hcl/Atropine (LOMOTIL TABLET) 1 Each Tablet, 1 TAB PO Q6HR PRN for DIARRHEA, TAB 10/15/19 [mertazapine] No Conflict Check, 15 MG PO HS 10/09/19 Hydromorphone Hcl (DILAUDID) 2 Mg Tab, 25 MG SC IV infusion pump, cont 07/09/17 Acetaminophen With Codeine (TYLENOL WITH CODEINE #4 TABLET) 1 Each Tablet, 1 TAB PO Q6H 08/24/16 Gabapentin (GABAPENTIN) 300 Mg Capsule, 800 MG PO TID, #60 CAP 08/24/16 Tizanidine Hcl (TIZANIDINE HCL) 4 Mg Capsule, 4 MG PO TID 08/10/16 Temazepam (TEMAZEPAM) 15 Mg Capsule, 15 MG PO HS 08/10/16 Zolpidem Tartrate (AMBIEN) 10 Mg Tablet, 10 MG PO HS, TAB 03/09/16 Citalopram Hydrobromide (CELEXA) 40 Mg Tablet, 40 MG PO DAILY 12/01/15 Dicyclomine Hcl (BENTYL) 10 Mg Capsule, 15 MG PO TID, CAP 12/01/15 Diazepam (DIAZEPAM) 10 Mg Tablet, 10 MG PO Q8H 12/01/15 Promethazine Hcl (PROMETHAZINE HCL) 50 Mg Tablet, 50 MG PO Q6HR 12/01/15 Medications in the ED Pantoprazole Sodium 40 mg ONCE ONCE IV Last administered on 11/06/19at 12:14; Admin Dose 40 MG; Start 11/06/19 at 12:00; Stop 11/06/19 at 12:01; Status DC Morphine Sulfate 4 mg ONCE STAT IV Last administered on 11/06/19at 12:13; Admin Dose 4 MG; Start 11/06/19 at 11:28; Stop 11/06/19 at 11:42; Status DC Ondansetron HCl 4 mg ONCE STAT IV Last administered on 11/06/19at 12:14; Admin Dose 4 MG; Start 11/06/19 at 11:28; Stop 11/06/19 at 11:42; Status DC Sodium Chloride 1,000 ml @ 0 mls/hr Q0M STAT IV Last administered on 11/06/19at 12:14; Admin Dose 1,000 MLS/HR; Start 11/06/19 at 11:28; Stop 11/06/19 at 11:31; Status DC LIS SADLER MD Nov 06, 2019 12:46
[2019-11-06 14:40] VITALS: BP 125/69
[2019-11-06] MEDS ORDERED: DICYCLOMINE HCL 10 MG CAP PO SCH (15:00)
--- NOTE | 2019-11-06 15:14 | NUR ---
Recvd patient from ER. AAOX3, Ambulates, not in any distress, skin intact, on IV fluids, call light in reach keep monitoring
[2019-11-06] MEDS ORDERED: MORPHINE SULFATE 2 MG/ML SYR 1ML IV PRN (15:15)
--- NOTE | 2019-11-06 15:20 | Diagnostic Imaging Report ---
CT of the abdomen and pelvis, without contrast. History: Abdominal pain, diarrhea. Comparison: CT abdomen/pelvis with contrast from 10/19/2019. Technique: Multidetector CT scanning of the abdomen and pelvis was performed from the level of the lung bases to the inferior pubic rami without the use of intravenous contrast material. Coronal and sagittal multiplanar reformations were obtained. RADIATION DOSE: Total DLP: 788.91 mGy*cm Dose modulation, iterative reconstruction, and/or weight based adjustment of the mA/kV was utilized to reduce the radiation dose to as low as reasonably achievable. FINDINGS: A stable 4 mm pulmonary nodule is identified within the right middle lobe. The visualized lungs are otherwise unremarkable. The imaged portion of the heart demonstrates no significant abnormalities. The liver is normal in size and attenuation on this noncontrast enhanced examination. The gallbladder surgically absent. There is no biliary ductal dilatation. The stomach, spleen, pancreas, and bilateral adrenal glands demonstrate unremarkable noncontrast appearance. The kidneys are normal in size and location. There is no evidence for nephrolithiasis or hydronephrosis. No ureteral stone or dilatation is appreciated. The urinary bladder demonstrates no significant abnormalities. The uterus is surgically absent. No abnormal adnexal masses are identified. The abdominal aorta is normal in course and caliber. The IVC is unremarkable. There are postsurgical changes of the bowel with an anastomotic suture line identified within the left mid abdomen. The visualized loops of small and large bowel demonstrate no evidence of obstruction or inflammation. The previously identified colonic wall thickening is no longer appreciated on today's examination. The appendix is visualized and appears unremarkable. There is no ascites or intraperitoneal free air. No abnormally enlarged lymph node identified within the abdomen or pelvis. Again identified is a right lower quadrant implanted pain pump/spinal device with intact appearing lead in stable position. There are postsurgical changes from posterior instrumented fusion from L4 through S1. There is no evidence for acute fracture or destructive process. The extraperitoneal soft tissues are unremarkable. IMPRESSION: No acute abdominopelvic process identified. Previously identified mild colonic wall thickening is no longer appreciated on today's examination. No evidence for bowel obstruction or inflammation. Stable 4 mm pulmonary micronodule identified within the right middle lobe. Signed by: Dr. Cr Hsu MD on 11/06/2019 3:17 PM
[2019-11-06 16:00] VITALS: BP 125/69
[2019-11-06] MEDS ORDERED: LACTOBACILLUS ACIDOPHILUS PO SCH (17:00)
[2019-11-06] MEDS: DICYCLOMINE HCL 20 MG TAB PO SCH ×2 (17:05→20:17)
[2019-11-06] MEDS: ONDANSETRON HCL INJ 2MG/ML 2ML 2 MG/ML VIAL IV PRN ×2 (17:05→21:05)
[2019-11-06] MEDS: LACTOBACILLUS ACIDOPHILUS CAPSULE PO SCH (17:05)
[2019-11-06] MEDS: VANCOMYCIN 250MG/5ML ORAL SOLN PO SCH (17:20)
[2019-11-06] MEDS: TEMAZEPAM 15 MG CAP PO SCH (20:17)
[2019-11-06] MEDS: CHOLESTYRAMINE 4 GM PACKET PO SCH (20:17)
[2019-11-06] MEDS: DIAZEPAM 5 MG TAB PO SCH (20:17)
[2019-11-06] MEDS: SODIUM CHLORIDE 0.9% 1000ML 1,000 ML IV SCH (20:19)
[2019-11-06 20:24] VITALS: BP 111/85
[2019-11-06 20:46] VITALS: BP 111/85
[2019-11-06] MEDS: HEPARIN SOD (PORCINE) 5,000 UNIT/ML VIAL SC SCH (21:30)
[2019-11-06] MEDS ORDERED: NON-FORMULARY MEDICATION (Diazepam 10 MG) PO SCH (22:00)
[2019-11-06] MEDS: ACETAMINOPHEN 325 MG TAB PO PRN (22:15)
--- NOTE | 2019-11-06 22:18 | History and Physical ---
PRIMARY CARE PHYSICIAN: Miko Bahena DO CHIEF COMPLAINT: Abdominal pain and diarrhea with history of C. diff. HISTORY OF PRESENT ILLNESS: This is a 43-year-old female with past medical history of depression, chronic back pain, and recent C. diff with colitis, presented to the ER with complaints of including left lower quadrant pain and diarrhea. She reports has been taking medication as prescribed, completed her vancomycin doing fine until today. She noted the pain was increasing and her diarrhea has become watery going up to 10-15 times per day. She denies any melena, nausea, vomiting, chest pain, fever, chills, shortness of breath. No emesis, dysuria. In the ER labs were unremarkable. She is admitted under observation for further evaluation. PAST MEDICAL HISTORY: 1. Depression. 2. Chronic back pain. PAST SURGICAL HISTORY: 1. Hysterectomy. 2. Cholecystectomy. 3. Spinal fusion. FAMILY MEDICAL HISTORY: Reports mother has hypertension. Father has heart disease. SOCIAL HISTORY: She denies any tobacco, alcohol, or illicit drug use. ALLERGIES: SHE IS ALLERGIC TO AMOXICILLIN, CLAVULANIC ACID, AND IODINE. REVIEW OF SYSTEMS: Twelve systems reviewed and negative except as reported in HPI. PHYSICAL EXAMINATION: VITAL SIGNS: Temperature 98.2, pulse is 82, respirations 18, blood pressure 121/88, pulse ox is 98% on room air. GENERAL: No acute distress. HEENT: Normocephalic and atraumatic. NECK: Supple. LUNGS: Clear to auscultation. CARDIOVASCULAR: Regular rate and rhythm. S1, S2 heard. GI: Soft, left lower quadrant tender to palpation. : Voiding without difficulties. NEUROLOGIC: Alert, awake, and oriented x3. MUSCULOSKELETAL: Moves all extremities. PSYCH: Calm. LABORATORY DATA: WBC 4.19, hemoglobin 12.1, hematocrit 38.4, platelets 334. Sodium 140, potassium 3.9, creatinine 0.71, estimated GFR is greater than 60. AST 41, ALT 55, magnesium 1.8. Troponin 0.001. Lipase 52. PT 12.2, INR 0.86, APTT 27.9. UA is clean. Coronavirus PCR is negative. IMAGING: CT abdomen and pelvis, no acute abdominal or pelvic process identified. Previously identified mild colonic wall-thickening is no longer appreciated on today's exam. No evidence of bowel obstruction or inflammation. IMPRESSION: 1. Increased abdominal pain and diarrhea with a recent history of Clostridium difficile. We started vancomycin 500 mg p.o. q.[address] abdomen unremarkable. We will consult ID and GI to re-evaluate. 2. Depression. Resume home medications. 3. Chronic back pain. Pain management as needed. 4. Deep vein thrombosis prophylaxis. Heparin subcu. PLAN: To continue IV fluids, Dictated by JOSHUA Douglas Karina Acuna MD MY/MODL /[id number]
--- NOTE | 2019-11-07 00:05 | NUR ---
DR SUBRAMANIAN MADE ROUND. NEW ORDER RECEIVED
[2019-11-07] MEDS: VANCOMYCIN 250MG/5ML ORAL SOLN PO SCH ×2 (00:28→05:06)
--- NOTE | 2019-11-07 02:24 | Consultation ---
DATE OF CONSULTATION: REASON FOR ADMISSION: Ms. Mccracken is here because she is having diarrhea. She was recently in the hospital apparently with diarrhea and C. difficile. Apparently, the patient was taking her oral vancomycin 4 times a day, but in spite of that she is having diarrhea. She was getting better, but now the diarrhea is worse again, so she came here. She denies any fever or chills. She is just complaining of pain. The patient is known to have history of colitis. PHYSICAL EXAMINATION: GENERAL: She is currently alert, oriented, does not seem to be in acute distress. VITAL SIGNS: Stable, currently afebrile. HEENT: She is not icteric. NECK: Supple. CHEST: Clear. HEART: S1 and S2. No murmurs. ABDOMEN: Soft. A CAT scan was done, showed no acute finding. IMPRESSION: 1. Abdominal pain and diarrhea. It could be irritable bowel syndrome, doubt infection at the present time. Agree with Questran. Agree with Bentyl. Agree with Pepto-Bismol. 2. Obesity. 3. Chronic pain. We will follow. MD LEONEL Bentley/MODL /[id number]
[2019-11-07] MEDS: SODIUM CHLORIDE 0.9% 1000ML 1,000 ML IV SCH (04:16)
[2019-11-07] MEDS: DIAZEPAM 5 MG TAB PO SCH ×3 (05:06→21:00)
[2019-11-07 05:16] VITALS: BP 112/87
[2019-11-07 05:39] LABS: BASOPHILS % 1.1 % (0.0-1.0); EOSINOPHILS # (AUTO) 0.4 (0.0-0.4); EOSINOPHILS % 11.3 % (0.0-6.0); HEMATOCRIT 35.8 % (34.2-44.1); HEMOGLOBIN 10.9 g/dL (12.0-16.0); LYMPHOCYTES # (AUTO) 2.2 (1.0-3.2); LYMPHOCYTES % 58.7 % (18.0-39.1); MEAN CORPUSCULAR HGB CONC 30.4 g/dL (31-35); MEAN CORPUSCULAR VOLUME 95.2 fL (81-99); MONOCYTES # (AUTO) 0.3 (0.2-0.8); MONOCYTES % 6.7 % (4.4-11.3); NEUTROPHILS # (AUTO) 0.8 (2.1-6.9); NEUTROPHILS % 21.9 % (38.7-80.0); PLATELET COUNT 287 x10e3/uL (140-360); RED BLOOD COUNT 3.76 x10e6/uL (3.6-5.1); RED CELL DISTRIBUTION WIDTH 14.7 % (11.7-14.4)
[2019-11-07 06:10] LABS: ALANINE AMINOTRANSFERASE 67 IU/L (0-55); ALBUMIN 3.3 g/dL (3.5-5.0); ALBUMIN/GLOBULIN RATIO 1.2 (0.8-2.0); ALKALINE PHOSPHATASE 112 IU/L (40-150); ANION GAP 9.9 mmol/L (8-16); BLOOD UREA NITROGEN 6 mg/dL (7-26); BUN/CREATININE RATIO 9 (6-25); CALCIUM 8.9 mg/dL (8.4-10.2); CARBON DIOXIDE 29 mmol/L (22-29); CHLORIDE 106 mmol/L (98-107); CREATININE, SERUM 0.66 mg/dL (0.57-1.11); EST GLOMERULAR FILTRATION RATE > 60 ML/MIN (60-); GLUCOSE 83 mg/dL (74-118); POTASSIUM 3.9 mmol/L (3.5-5.1); SODIUM 141 mmol/L (136-145)
--- NOTE | 2019-11-07 06:37 | NUR ---
SENT STOOL SAMPLE TO LAB
[2019-11-07 08:02] VITALS: BP 107/51
[2019-11-07] MEDS: HEPARIN SOD (PORCINE) 5,000 UNIT/ML VIAL SC SCH ×2 (08:44→21:00)
[2019-11-07 09:00] VITALS: BP 107/51
[2019-11-07] MEDS ORDERED: NON-FORMULARY MEDICATION (Citalopram Hydrobromide (Celexa) 40 MG) PO SCH (09:00)
[2019-11-07] MEDS: CHOLESTYRAMINE 4 GM PACKET PO SCH ×3 (09:00→19:53)
[2019-11-07] MEDS: ONDANSETRON HCL INJ 2MG/ML 2ML 2 MG/ML VIAL IV PRN (09:45)
[2019-11-07] MEDS: CITALOPRAM HYDROBROMIDE 20 MG TAB PO SCH (09:45)
[2019-11-07] MEDS: LACTOBACILLUS ACIDOPHILUS CAPSULE PO SCH ×2 (09:45→17:51)
[2019-11-07] MEDS: DICYCLOMINE HCL 20 MG TAB PO SCH ×4 (09:45→19:52)
[2019-11-07] MEDS: ACETAMINOPHEN 325 MG TAB PO PRN ×2 (09:45→19:52)
[2019-11-07 12:00] VITALS: BP 132/86
--- NOTE | 2019-11-07 12:12 | Progress Note ---
DATE: SUBJECTIVE: The patient is seen and evaluated. Available labs and notes reviewed. Discussed with Dr. Moore. Please refer to chart for more information. REVIEW OF SYSTEMS: Complained of diarrhea. No nausea, vomiting, fever, chills, chest pain, or shortness of breath. MEDICATIONS: Medication list is reviewed. From ID point of view, the patient is on vancomycin p.o. 500 mg p.o. q.6 hours. LABORATORY STUDIES: White count of 3.73, hemoglobin 10.9, and platelet 287. Sodium 141, potassium 3.9, and creatinine 0.66. Coronavirus PCR 11/06/2019 is pending. Blood culture pending. Urine culture negative 24 hours. Stool for ova and parasite pending. IMAGING: CT of abdomen and pelvis showed no acute abdominal or pelvic process identified, previously identified mild colonic wall thickening is no longer appreciated. No evidence of bowel obstruction or inflammation. PHYSICAL EXAMINATION: VITAL SIGNS: Temperature is 96.1, pulse 61, respirations 18, and blood pressure 107/51. GENERAL: Alert and oriented, no acute distress. CV: S1-S2. CHEST: Equal expansion. Clear to auscultation. No acute distress. ABDOMEN: Soft, obese, nontender. HEENT: Moist. No pallor. No JVD. EXTREMITIES: Moves all. No cyanosis or clubbing. ASSESSMENT AND PLAN: 1. Abdominal pain and diarrhea reportedly by patient. Concerned about the irritable bowel syndrome. The patient is on vancomycin p.o. However, a CAT scan showed improvement and resolution of mild colonic wall thickening. 2. Chronic pain syndrome. The patient is also on lactobacillus and cholestyramine. Please refer to chart for more information. We will follow up with the cultures. Discussed with Dr. Moore in details. Dictated by Devante Zimmerman PA-C (Al) Corie Moore MD /MODL /[id number]
--- NOTE | 2019-11-07 18:21 | NUR ---
patient resting up in bed, Alert with no distress, she said she had 2 BMs, denies any pain this time
[2019-11-07] MEDS ORDERED: DIPHENOXYLATE/ATROPINE TAB PO PRN (19:45)
[2019-11-07] MEDS: TEMAZEPAM 15 MG CAP PO SCH (19:52)
[2019-11-07 20:06] VITALS: BP_SYST 103; BP_SYST 129; BP_DIAS 65; BP_DIAS 78
[2019-11-07 20:54] VITALS: BP 103/78
[2019-11-07] MEDS ORDERED: ZOLPIDEM TARTRATE 10 MG TAB PO SCH (21:00)
--- NOTE | 2019-11-07 21:11 | Progress Note ---
DATE: 11/07/2019 CONSULTANTS: 1. Dr. Lobo, GI. 2. Dr. Moore with ID. CHIEF COMPLAINT: Abdominal pain and diarrhea, recurrent. SUBJECTIVE: The patient reports abdominal pain has not improved. She reports diarrhea x10 today, but staff only saw one stool. She also reported nausea and vomiting, but not witnessed by staff. She is advised to show the nursing staff whenever she is having a bowel movement, nausea, and vomiting. Otherwise, she denies any chest pain, fever, or chills. PHYSICAL EXAMINATION: VITAL SIGNS: Temperature 96.1, pulse is 72, respirations 18, blood pressure 132/86, pulse ox is 98% on room air. GENERAL: No acute distress. HEENT: Normocephalic and atraumatic. NECK: Supple. LUNGS: Clear to auscultation. CARDIOVASCULAR: Regular rate and rhythm. S1, S2 heard. GI: Soft, left lower quadrant tenderness. No palpitation. NEUROLOGIC: Alert, awake, and oriented x3. MUSCULOSKELETAL: Moves all extremities. PSYCH: Calm. LABORATORY DATA: WBC 3.73, hemoglobin 10.9, hematocrit 35.8, platelet is 287. Sodium 141, potassium 3.9, BUN 6 and creatinine 0.66, estimated GFR is greater than 60. AST 49, ALT 67, lipase 52. Stool lactoferrin is negative. Stool calprotectin is pending. Stool for ova and parasite screen is also pending. IMPRESSION: 1. Abdominal pain with recurrent diarrhea. The patient with history of colitis. CT abdomen is unremarkable. We will discontinue vancomycin as the lactoferrin is negative. We will advance diet to regular diet. Gastrointestinal and Infectious Disease have been consulted. 2. Depression. Resume home medications. 3. Chronic back pain. Pain management as needed. 4. Insomnia. We will resume Ambien. 5. Deep vein thrombosis prophylaxis. Heparin subcu. PLAN: We will continue IV fluids, we will advance diet to regular diet. Further recommendation per GI and ID. Dictated by JOSHUA Douglas Karina Acuna MD MY/MODL /[id number]
[2019-11-07] MEDS ORDERED: PANTOPRAZOLE 40 MG 10ML VIAL IV STA (23:31)
[2019-11-07] MEDS ORDERED: PANTOPRAZOLE 40 MG 10ML VIAL IV SCH (23:45)
[2019-11-08] VITALS: BP 111/93
[2019-11-08] MEDS ORDERED: SODIUM CHLORIDE 0.9% 250ML 250 ML ONE (01:35)
[2019-11-08] MEDS: ONDANSETRON HCL INJ 2MG/ML 2ML 2 MG/ML VIAL IV PRN ×5 (01:43→15:24)
[2019-11-08] MEDS: ACETAMINOPHEN 325 MG TAB PO PRN ×2 (02:00→07:43)
[2019-11-08 05:14] VITALS: BP 139/97
[2019-11-08] MEDS: DIAZEPAM 5 MG TAB PO SCH ×2 (06:03→14:00)
--- NOTE | 2019-11-08 07:05 | NUR ---
RCD PT AT BED PT IS ALERT AND ORIENTED PT RESTING ON BED NO SIGNS OF ANY DISTRESS NOTED IV PATENT BED LOW AND LOCKED CALL LIGHT IN REACH
[2019-11-08 08:07] VITALS: BP 108/79
[2019-11-08 08:26] VITALS: BP 108/79
[2019-11-08] MEDS: CITALOPRAM HYDROBROMIDE 20 MG TAB PO SCH (09:00)
[2019-11-08] MEDS: DICYCLOMINE HCL 20 MG TAB PO SCH ×3 (09:00→18:00)
[2019-11-08] MEDS: HEPARIN SOD (PORCINE) 5,000 UNIT/ML VIAL SC SCH (09:00)
[2019-11-08] MEDS: CHOLESTYRAMINE 4 GM PACKET PO SCH ×2 (09:00→15:00)
[2019-11-08] MEDS: LACTOBACILLUS ACIDOPHILUS CAPSULE PO SCH ×2 (09:00→16:38)
[2019-11-08] MEDS ORDERED: PANTOPRAZOLE 40 MG 10ML VIAL IV SCH (09:00)
[2019-11-08 11:41] VITALS: BP 108/67
--- NOTE | 2019-11-08 12:00 | NUR ---
PT HAVE FORMED STOOL
--- NOTE | 2019-11-08 12:19 | Progress Note ---
DATE: SUBJECTIVE: The patient is seen and evaluated. Discussed with the . REVIEW OF SYSTEMS: Remains with diarrhea, had 7 to 8 bowel movements since yesterday. Poor appetite, nauseated. No vomiting. No chest pain or shortness of breath. Has some abdominal discomfort in general. OBJECTIVE: VITAL SIGNS: Temperature 97.8, pulse 67, respirations 18, blood pressure 108/79. GENERAL: Alert and oriented, no acute distress. CV: S1, S2. CHEST: Equal expansion. Clear to auscultation. No acute distress. ABDOMEN: Soft, obese with discomfort. HEENT: Moist. No pallor. No JVD. EXTREMITIES: Moves all. No cyanosis. No significant edema. MEDICATIONS: Reviewed. From ID point of view, the patient is on Zofran, lactobacillus, acidophilus, Protonix, Lomotil and Questran. LABORATORY STUDIES: No new CBC or BMP available. Serology: Coronavirus PCR not detected. MICROBIOLOGY: Blood culture negative so far. Urine culture, negative 48 hours. Stool for ova and parasite is pending. IMAGING: No new radiology studies available. ASSESSMENT AND PLAN: Diarrhea, CT negative for colitis. As a matter of fact, CAT scan showed improvement since prior exam. We will follow with the stool for ova and parasites. Continue with supportive care. Monitor off antibiotics. Discussed with Dr. Moore in detail. Please refer to chart for more information. Dictated by Devante Zimmerman PA-C (Al) Corie Moore MD /MODL /[id number]
[2019-11-08] MEDS ORDERED: PROTONIX40 MG PO (14:10)
[2019-11-08] MEDS ORDERED: PROMETHAZINE HC50 MG PO (14:11)
[2019-11-08 15:31] VITALS: BP 104/60
--- NOTE | 2019-11-08 16:00 | NUR ---
PATIENT IS NOT HAPPY TO GO HOME SHE WANTS STAY IN HOSPITAL FOR PAIN MEDICATIONS SHE DONT HAVE ANY ABDOMINAL PAIN NO DIARRHEA ,PT IS NOT WILLING TO COMPLETE THE DISCHARGE CHECK LIST
--- NOTE | 2019-11-08 17:38 | NUR ---
PATIENT WENT HOME IN SAFE CONDITION WITH HER
--- NOTE | 2019-11-09 00:42 | Discharge Summary ---
PCP: Dr. Miko Bahena. FINAL DISCHARGE DIAGNOSES: 1. Abdominal pain with recurrent diarrhea. 2. Depression. 3. Chronic back pain. 4. Insomnia. CONSULTANTS: 1. Dr. Moore with Infectious Disease. 2. Dr. Lobo with GI. PROCEDURES: None. HISTORY: Per HPI. HOSPITAL COURSE: This is a 43-year-old female with past medical history of colitis with C diff, depression, and chronic back pain, presented with increased abdominal pain and diarrhea. CT abdomen and pelvis was unremarkable and improved from previous exam. She was recently admitted and discharged after treatment of colitis with C diff. She reported completed her vancomycin p.o. GI and Infectious Disease were consulted and advised for vancomycin p.o. discontinuing and monitor off antibiotics. She was started on Questran, Lomotil, and probiotics. She tolerated regular diet, stool per nursing staff is soft and formed. She complains of nausea, but no vomiting, she was started on Protonix per GI. We will discharge home today to follow up with GI outpatient for further workup. PHYSICAL EXAMINATION: VITAL SIGNS: Temperature 98.1, pulse is 81, respirations 16, blood pressure 104/60, pulse ox 97% on room air. GENERAL: No acute distress. HEENT: Normocephalic and atraumatic. LUNGS: Clear to auscultation. CARDIOVASCULAR: Regular rate and rhythm. GI: Soft and mild tenderness in the left lower quadrant. MUSCULOSKELETAL: Moves all extremities. PSYCH: Calm. CONDITION AT DISCHARGE: Stable and improved. DISCHARGE MEDICATIONS: Please see medication reconciliation list. FOLLOWUP: Follow up with Dr. Lobo in 1 to 2 weeks. Follow up with PCP in 1 to 2 weeks. TIME SPENT: Total time of discharge is 32 minutes. Dictated by JOSHUA Douglas Robynching Jaun Acuna MD MY/MODL /[id number] cc: Miko Bahena DO
== END 2019-11-08 18:55 | disposition home or self-care (01) ==
LOC: ER 10:31 → ERHOLD 12:36 → MED/SURG2 14:42
PROVIDERS: ADMIT Internal Medicine; ATTEND Internal Medicine
DX: R19.7 Diarrhea, unspecified (principal); R10.32 Left lower quadrant pain; Z90.49 Acquired absence of other specified parts of digestive tract; Z88.8 Allergy status to other drugs, medicaments and biological substances; Z88.1 Allergy status to other antibiotic agents; Z91.041 Radiographic dye allergy status; Z82.49 Family history of ischemic heart disease and other diseases of the circulatory system; F32.9 Major depressive disorder, single episode, unspecified; Z86.19 Personal history of other infectious and parasitic diseases; E66.9 Obesity, unspecified; Z11.59 Encounter for screening for other viral diseases; G89.4 Chronic pain syndrome; G47.00 Insomnia, unspecified; Z68.33 Body mass index [BMI] 33.0-33.9, adult
CPT/HCPCS: 36415 ×2; 74176; 80053 ×2; 81001; 82150; 82550; 82553; 83630; 83690; 83735; 83993; 84484; 85025 ×2; 85610; 85730; 87040; 87045; 87086; 87177; 87635; 99284; C9113 ×3; G0378 ×3; J1644 ×3; J2270; J2405 ×3; J7030; J7050

== ENCOUNTER 2020-02-03 02:49 | Emergency (ER) | payer BC, OTHER ==
[~2020-02-03] VITALS: Ht 170.2 cm; Wt 97.1 kg
[~2020-02-03 02:49] MED LIST changes: +PROTONIX40 MG PO
[2020-02-03] MEDS ORDERED: ONDANSETRON HCL INJ 2MG/ML 2ML 2 MG/ML VIAL IV STA (03:10)
[2020-02-03] MEDS ORDERED: SODIUM CHLORIDE 0.9% 1000ML 1,000 ML IV SCH (03:15)
--- NOTE | 2020-02-03 03:20 | Emergency Department Note ---
History of Present Illnes History of Present Illness Chief Complaint: Abdominal Complaints History of Present Illness This is a 44 year old female Chief Complaint Comment 44 Y/O FEMALE PT AAOX3 PRESENTS TO ED WITH DIARRHEA, DYSURIA, AND GENERALIZED ABDOMINAL PAIN X5 DAYS. Historian: Patient Arrival Mode: Car Resource Protection Specialist Required: No Onset (how long ago): day(s) (5) Location: abdomen Quality: dull Radiation: Reports non-radiation Severity: moderate Onset quality: gradual Duration (how long): day(s) (5) Timing of current episode: constant Progression: worsening Chronicity: recurrent Context: Denies recent illness, Denies recent surgery Relieving factors: none Exacerbating factors: none Associated symptoms: Reports denies other symptoms Treatments prior to arrival: other (Pepto) Past Medical/Family History Physician Review I have reviewed the patient's past medical and family history. Any updates have been documented here. Past Medical History Recent Fever: No Clinical Suspicion of Infectio: No New/Unexplained Change in Ment: No Past Medical History: Cancer, Chronic Back Pain Other Medical History: cervical cancer stage 4 leukemia Past Surgical History: Cholecysctectomy, Hysterectomy, Hernia Repair Other Surgery: spinal fusion dilaudid pain pump insertion (OFF AT THIS TIME PER PT) bile duct sphincterectomy scar tissue removal x3 in abd [place] hernia REPAIR R&Y Other Last Tetanus: UNKNOWN Review of Systems Review of Systems Constitutional: Reports no symptoms EENTM: Reports no symptoms Cardiovascular: Reports no symptoms Respiratory: Reports no symptoms Gastrointestinal: Reports as per HPI, Reports abdominal pain, Reports diarrhea, Reports nausea Genitourinary: Reports no symptoms Musculoskeletal: Reports no symptoms Integumentary: Reports no symptoms Neurological: Reports no symptoms Psychological: Reports no symptoms Endocrine: Reports no symptoms Hematological/Lymphatic: Reports no symptoms Physical Exam Related Data Allergies: Coded Allergies: amoxicillin (Verified Allergy, Intermediate, hives, 11/06/19) clavulanic acid (Verified Allergy, Intermediate, hives, 11/06/19) iodine (Verified Allergy, Intermediate, hives, 11/06/19) Triage Vital Signs Vital Signs Date Time Temp Pulse Resp B/P (MAP) Pulse Ox O2 Delivery O2 Flow Rate FiO2 02/03/20 03:05 98.4 63 18 152/71 100 Room Air Vital signs reviewed: Yes Physical Exam CONSTITUTIONAL Constitutional: Present well-developed, Present well-nourished HENT HENT: Present normocephalic, Present atraumatic, Present oropharynx clear/moist, Present nose normal HENT L/R: Present left ext ear normal, Present right ext ear normal EYES Eyes: Reports PERRL, Reports conjunctivae normal NECK Neck: Present ROM normal PULMONARY Pulmonary: Present effort normal, Present breath sounds normal CARDIOVASCULAR Cardiovascular: Present regular rhythm, Present heart sounds normal, Present capillary refill normal, Present normal rate GASTROINTESTINAL Abdominal: Present soft, Present nontender, Present bowel sounds normal; Absent distension GENITOURINARY Genitourinary: Present exam deferred SKIN Skin: Present warm, Present dry MUSCULOSKELETAL Musculoskeletal: Present ROM normal NEUROLOGICAL Neurological: Present alert, Present oriented x 3, Present no gross motor or sensory deficits PSYCHOLOGICAL Psychological: Present mood/affect normal, Present judgement normal Results Laboratory Lab results reviewed: Yes Imaging Imaging results reviewed: Yes Diagnostics Tests Diagnostic test(s) reviewed: Yes Assessment & Plan Medical Decision Making MDM 44-year-old female presents for diarrhea and abdominal pain. Symptoms ongoing for 5 days. Examination shows an overall well-appearing female in no acute distress, vital signs stable, within normal limits. Initial differential includes gastroenteritis versus C. difficile versus diverticulitis among others. Laboratory workup is unremarkable, CT scan pending as well as urine. She was given crystalloid bolus and fentanyl for pain. Ct and UA unremarkable. Doubt emergent process. Patient appropriate for DC. Reassessment Reassessment time: 05:40 Reassessment Well appearing, NAD Assessment & Plan Final Impression: (1) Diarrhea Depart Disposition: HOME, SELF-CARE Last Vital Signs Date Time Temp Pulse Resp B/P (MAP) Pulse Ox O2 Delivery O2 Flow Rate FiO2 02/03/20 03:05 98.4 63 18 152/71 100 Room Air Home Meds Active Scripts Promethazine Hcl (PROMETHAZINE HCL) 50 Mg Tablet, 50 MG PO Q6HR, #20 Prov:[employer] 11/08/19 Pantoprazole Sodium (PROTONIX) 40 Mg Suspdr.pkt, 40 MG PO DAILY, #30 TAB Prov:[employer] 11/08/19 [Lactobacillus Acidophilus] 1 TAB TAB No Conflict Check, 1 TAB PO BID, #60 Prov:LUCIAN G[employer] 10/25/19 Cyclobenzaprine Hcl (FLEXERIL) 5 Mg Tablet, 10 MG PO TID for PAIN, #20 Prov:SIMA BAUTISTA MD 07/25/19 Reported Medications Diphenoxylate Hcl/Atropine (LOMOTIL TABLET) 1 Each Tablet, 1 TAB PO Q6HR PRN for DIARRHEA, TAB 10/15/19 [mertazapine] No Conflict Check, 15 MG PO HS 10/09/19 Hydromorphone Hcl (DILAUDID) 2 Mg Tab, 25 MG SC IV infusion pump, cont 07/09/17 Acetaminophen With Codeine (TYLENOL WITH CODEINE #4 TABLET) 1 Each Tablet, 1 TAB PO Q6H 08/24/16 Gabapentin (GABAPENTIN) 300 Mg Capsule, 800 MG PO TID, #60 CAP 08/24/16 Tizanidine Hcl (TIZANIDINE HCL) 4 Mg Capsule, 4 MG PO TID 08/10/16 Temazepam (TEMAZEPAM) 15 Mg Capsule, 15 MG PO HS 08/10/16 Zolpidem Tartrate (AMBIEN) 10 Mg Tablet, 10 MG PO HS, TAB 03/09/16 Citalopram Hydrobromide (CELEXA) 40 Mg Tablet, 40 MG PO DAILY 12/01/15 Dicyclomine Hcl (BENTYL) 10 Mg Capsule, 15 MG PO TID, CAP 12/01/15 Diazepam (DIAZEPAM) 10 Mg Tablet, 10 MG PO Q8H 12/01/15 Medications in the ED Sodium Chloride 1,000 ml @ 0 mls/hr Q0M IV ; Start 02/03/20 at 03:15; Stop 02/03/20 at 04:14 Ondansetron HCl 4 mg NOW STAT IV ; Start 02/03/20 at 03:10; Stop 02/03/20 at 03:14; Status DC KWAME AGUILERA MD Feb 03, 2020 03:20
[2020-02-03 03:44] LABS: BASOPHILS % 0.5 % (0.0-1.0); EOSINOPHILS # (AUTO) 0.2 (0.0-0.4); HEMATOCRIT 38.2 % (34.2-44.1); HEMOGLOBIN 11.9 g/dL (12.0-16.0); LYMPHOCYTES # (AUTO) 2.7 (1.0-3.2); LYMPHOCYTES % 47.6 % (18.0-39.1); MEAN CORPUSCULAR HEMOGLOBIN 29.3 pg (28-32); MEAN CORPUSCULAR HGB CONC 31.2 g/dL (31-35); MEAN CORPUSCULAR VOLUME 94.1 fL (81-99); MONOCYTES # (AUTO) 0.4 (0.2-0.8); MONOCYTES % 7.2 % (4.4-11.3); NEUTROPHILS # (AUTO) 2.3 (2.1-6.9); NEUTROPHILS % 41.5 % (38.7-80.0); PLATELET COUNT 334 x10e3/uL (140-360); RED BLOOD COUNT 4.06 x10e6/uL (3.6-5.1); RED CELL DISTRIBUTION WIDTH 13.4 % (11.7-14.4)
[2020-02-03 03:56] LABS: LIPASE 32 U/L (8-78)
[2020-02-03 03:58] LABS: ALANINE AMINOTRANSFERASE 46 IU/L (0-55); ALBUMIN 4.4 g/dL (3.5-5.0); ALBUMIN/GLOBULIN RATIO 1.6 (0.8-2.0); ALKALINE PHOSPHATASE 127 IU/L (40-150); ANION GAP 15.2 mmol/L (8-16); BLOOD UREA NITROGEN 11 mg/dL (7-26); BUN/CREATININE RATIO 14 (6-25); CALCIUM 9.1 mg/dL (8.4-10.2); CARBON DIOXIDE 25 mmol/L (22-29); CHLORIDE 103 mmol/L (98-107); CREATININE, SERUM 0.76 mg/dL (0.57-1.11); EST GLOMERULAR FILTRATION RATE > 60 ML/MIN (60-); GLUCOSE 91 mg/dL (74-118); POTASSIUM 3.2 mmol/L (3.5-5.1); SODIUM 140 mmol/L (136-145)
--- NOTE | 2020-02-03 04:22 | NUR ---
RT FA IV INFILTRATED. IV D/C'D. CATHETER TIP INTACT ON REMOVAL. DRESSING AND WARM COMPRESS APPLIED. NO REDNESS NOTED TO SITE.
[2020-02-03] MEDS ORDERED: FENTANYL CITRATE/PF 100MCG/2 ML INJ IV ONE (04:30)
--- NOTE | 2020-02-03 05:43 | Diagnostic Imaging Report ---
EXAM: CT Abdomen and Pelvis WITHOUT contrast INDICATION: abdominal pain COMPARISON: CT dated 10/19/2019. CT dated 11/06/2019.. TECHNIQUE: Abdomen and pelvis were scanned utilizing a multidetector helical scanner from the lung base to the pubic symphysis without administration of IV contrast. Absence of intravenous contrast decreases sensitivity for detection of focal lesions and vascular pathology. Coronal and sagittal reformations were obtained. Routine protocol was performed. IV CONTRAST: None ORAL CONTRAST: None COMPLICATIONS: None FINDINGS: Noncontrast technique limits evaluation of viscera and vasculature. LOWER THORAX: No consolidation. HEPATOBILIARY: No focal hepatic lesions. No biliary ductal dilation. GALLBLADDER: There are cholecystectomy clips. SPLEEN: No splenomegaly. PANCREAS: No focal masses or ductal dilatation. ADRENALS: No adrenal nodules KIDNEYS/URETERS: No hydronephrosis. No cystic or solid mass lesions. No stones. Ureters are not visualized throughout their entire course due to streak artifact from spinal hardware. GI TRACT: No abnormal distention, wall thickening, or evidence of bowel obstruction. Appendix is not clearly identified. There is however no fat stranding or adenopathy in the right lower quadrant to suggest appendicitis. Stable postsurgical changes in the left upper quadrant/epigastric region. PELVIC ORGANS/BLADDER: Hysterectomy. No adnexal masses. Urinary bladder unremarkable. LYMPH NODES: No lymphadenopathy. VESSELS: Unremarkable. PERITONEUM / RETROPERITONEUM: No free air or fluid. BONES: Posterior spine fusion of L4-S1. SOFT TISSUES: Right lower quadrant implanted spinal device with lead projecting over the L1. IMPRESSION: No acute abdominopelvic process. Signed by: Blair Driver MD on 02/03/2020 5:40 AM
[2020-02-03 06:15] LABS: BILIRUBIN,URINE NEGATIVE (NEGATIVE); CLARITY,URINE CLEAR (CLEAR); COLOR,URINE YELLOW (YELLOW); KETONES,URINE NEGATIVE (NEGATIVE); LEUKOCYTE ESTERASE ,URINE NEGATIVE (NEGATIVE); NITRITE,URINE NEGATIVE (NEGATIVE); PROTEIN,URINE DIPSTICK NEGATIVE (NEGATIVE); URINE UROBILINOGEN 0.2 mg/dL (0.2 - 1)
[2020-02-03 06:45] LABS: BACTERIA,URINE MODERATE /HPF; EPITHELIAL CELLS,URINE FEW /LPF; MUCUS,URINE FEW (RARE); WBC,URINE (MAN) 0-5 /HPF (0-5)
== END 2020-02-03 07:01 | disposition home or self-care (01) ==
LOC: ER 03:09
DX: R10.84 Generalized abdominal pain (principal); R19.7 Diarrhea, unspecified; R30.0 Dysuria; M54.9 Dorsalgia, unspecified; G89.29 Other chronic pain; Z85.41 Personal history of malignant neoplasm of cervix uteri
CPT/HCPCS: 36415; 74176; 80053; 81001; 83690; 84702; 85025; 87086; 99284; J2405; J3010; J7030